=== PATIENT | male | born 1960 | race Caucasian/White ===

== ENCOUNTER → 2018-08-08 13:07 | Outpatient (CLI) | payer MEDICARE, SELFPAY ==
--- NOTE | 2018-08-08 13:08 | ECHOCS_ITS ---
Version 2 Reason For Study: S/P CABG Procedure This was a 2D Doppler, Color Flow transthoracic echocardiogram. Limited views were obtained. The study was technically difficult. Exam performed in department. Left Ventricle Normal LV size. The estimated ejection fraction is 40 %. Mild to moderate segmental systolic dysfunction (see wall motion). Stage 1 diastolic dysfunction. Anterio-Basal: Normal. Posterior- Basal: Normal. Mid-Anterior : Normal. Basal inferoseptal: Akinetic. Mid-Lateral : Normal. Lateral- Basal: Normal. Infero-Basal: Normal. The rest of the wall segments are hypokinetic. Right Ventricle Normal RV size. Normal systolic function. Atria Normal left atrium. Normal right atrium. Mitral Valve Normal mitral valve. Tricuspid Valve Normal tricuspid valve. Mild (1+) tricuspid valve insufficiency. Pulmonary artery systolic pressure is 25 mmHg. Aortic Valve Trisinus/trileaflet aortic valve. Mild focal aortic valve calcification. Pulmonic Valve Normal pulmonic valve. Great Vessels Normal aortic root. The pulmonary artery is normal size. Normal inferior vena cava. Pericardium/Pleural No pericardial effusion. Medication 22 gauge I.V. with prn adaptor inserted into left arm. Diluted definity 10ml given slow IV push to enhance endocardial definition. Dificult IV access- attmepts X 5, Left hand IV for Definity. MMode/2D Measurements & Calculations LVIDd: 5.5 cm IVSd: 1.1 cm Ao root diam: 3.5 cm LVIDs: 4.5 cm LVPWd: 1.2 cm RVDd: 4.1 cm FS: 18.3 % LAV(MOD-bp): 65.9 ml LVAd ap4: 43.8 cm2 SV(MOD-sp4): 63.6 ml LAV(MOD-bp) Indexed: 27.7 ml/m2 EDV(MOD-sp4): 177.6 ml LAV(MOD-sp2): 51.8 ml EDV(sp4-el): 193.6 ml LAV(MOD-sp4): 77.4 ml LVAs ap4: 33.2 cm2 ESV(MOD-sp4): 114.0 ml ESV(sp4-el): 120.8 ml EF(MOD-sp4): 35.8 % EF(sp4-el): 37.6 % SV(sp4-el): 72.8 ml LA A4 area: 23.4 cm2 LA dimension(2D): 4.5 cm RA A4 area: 11.7 cm2 Time Measurements MV dec time: 0.16 sec Doppler Measurements & Calculations MV E max john: 119.7 cm/sec Lat Peak E' John: 7.0 cm/sec Med Peak E' John: 5.4 cm/sec MV A max john: 99.6 cm/sec E/E' lat: 17.0 E/E' med: 22.1 MV E/A: 1.2 Ao V2 max: 136.8 cm/sec LV V1 max: 89.6 cm/sec TR max john: 229.0 cm/sec Ao max P.5 mmHg LV V1 max P.2 mmHg TR max P.5 mmHg Interpretation Summary Normal LV size. The estimated ejection fraction is 40 %. Mild to moderate segmental systolic dysfunction (see wall motion). Stage 1 diastolic dysfunction. Mild (1+) tricuspid valve insufficiency. Contrast injection was performed. Compared to prior study, there is no significant change. Ordering Physician: Sebastián Farrell Referring Physician: ROHIT CARSON Performed By: Elizabeth Gallagher, JOSIAH, RVT
== END ==
PROVIDERS: Family Provider Family Medicine; PCP Family Medicine; Referring Provider Internal Medicine Cardiovascular Disease; Visit Provider Internal Medicine Cardiovascular Disease
DX: R94.31 Abnormal electrocardiogram [ECG] [EKG] (principal)
CPT/HCPCS: 93306; Q9957; A4216; C8929

== ENCOUNTER → 2019-10-02 06:40 | Outpatient (CLI) | payer MEDICARE, SELFPAY ==
[2019-09-08 14:19] VITALS: BMI 39.0
--- NOTE | 2019-10-02 06:42 | ECHOCS_ITS ---
Reason For Study: HTN Procedure This was a 2D Doppler, Color Flow transthoracic echocardiogram. The study was technically difficult. Contrast injection was performed. Exam performed in department. Left Ventricle Normal LV size. The estimated ejection fraction is 35 %. Moderate segmental systolic dysfunction (see wall motion). Stage 2 diastolic dysfunction. Mid-Inferior: Akinetic. Infero-Basal: Akinetic. Inferior [place] : Akinetic. Mid-Posterior: Hypokinetic. Mid-Anterior : Hypokinetic. Basal inferoseptal: Hypokinetic. The rest of the wall segments are normal. Right Ventricle Normal RV size. Normal systolic function. Atria Normal left atrium. Normal right atrium. Mitral Valve Normal mitral valve. Tricuspid Valve Normal tricuspid valve. Mild to moderate (1-2+) tricuspid valve insufficiency. Pulmonary artery systolic pressure is 33 mmHg. Aortic Valve The aortic valve is not well visualized. Pulmonic Valve The pulmonic valve is not well visualized. Great Vessels Normal aortic root. Pericardium/Pleural No pericardial effusion. Medication Diluted definity 3.0ml given slow IV push to enhance endocardial definition. MMode/2D Measurements & Calculations LVIDd: 6.1 cm IVSd: 1.1 cm Ao root diam: 3.9 cm LVIDs: 5.1 cm LVPWd: 1.3 cm RVDd: 4.2 cm FS: 16.9 % LAV(MOD-bp): 71.1 ml LA A4 area: 20.3 cm2 LA dimension(2D): 4.4 cm LAV(MOD-bp) Indexed: 29.0 ml/m2 LAV(MOD-sp2): 74.1 ml LAV(MOD-sp4): 62.7 ml RA A4 area: 14.8 cm2 Time Measurements MV dec time: 0.16 sec Doppler Measurements & Calculations MV E max john: 137.1 cm/sec Lat Peak E' John: 10.4 cm/sec Med Peak E' John: 6.0 cm/sec MV A max john: 90.2 cm/sec E/E' lat: 13.2 E/E' med: 22.8 MV E/A: 1.5 Ao V2 max: 149.3 cm/sec LV V1 max: 105.0 cm/sec TR max john: 267.0 cm/sec Ao max P.9 mmHg LV V1 max P.5 mmHg TR max P.6 mmHg Interpretation Summary Normal LV size. The estimated ejection fraction is 35 %. Moderate segmental systolic dysfunction (see wall motion). Stage 2 diastolic dysfunction. Compared to the previous there is little change but mild reduction in LV function. Contrast injection was performed. Ordering Physician: Sebastián Farrell Referring Physician: ROHIT CARSON Performed By: Elizabeth Gallagher, JOSIAH, RVT
--- NOTE | 2019-10-02 10:05 | STRESSREP ---
Stress Test Report Pharmacologic myocardial perfusion stress test. 58-year-old man with a history of coronary artery bypass surgery with a left internal mammary artery to the diagonal branch, saphenous vein graft to ramus intermedius and posterior descending artery. Stress protocol: Resting EKG demonstrates normal sinus rhythm with a rate of 96 bpm previous inferior infarct is noted. Premature atrial complexes are noted. 0.4 mg of regadenoson was infused per usual protocol followed Intravenous saline flush injection continuous EKG monitoring was performed. Patient maintained sinus rhythm throughout the recording at rest there were no ST or T wave changes noted suggest abnormal flow reserve at peak infusion nonspecific ST-T wave changes were noted with no meet the criteria for ischemia. The resting blood pressure was 142/82 with a final blood pressure of the same. Myocardial perfusion protocol. 14.7 mCi of technetium 99m sestamibi was injected at rest. 0.4 mg of regadenoson was infused per usual protocol peak infusion 44.4 mCi of technetium 99m sestamibi was injected stress images were obtained stress and rest images were reconstructed and compared in the short axis vertical long horizontal long axis. Gated images also obtained per Perfusion SPECT analysis: Perfusion SPECT analysis demonstrates a large zone noted involving the inferior and inferior septal wall present on the stress and resting images suggestive of a previous extensive inferoseptal infarct. No obvious ischemia is noted. The gated ejection fraction is noted to be 36% the rest of the roblero appear to be normally perfused. Gated SPECT analysis: The gated ejection fraction is 36%. Conclusion: Myocardial perfusion stress test with previous extensive inferior and inferoseptal infarct. Ischemic cardiomyopathy.
== END ==
PROVIDERS: Family Provider Family Medicine; PCP Family Medicine; Referring Provider Internal Medicine Cardiovascular Disease; Visit Provider Internal Medicine Cardiovascular Disease
DX: Z01.810 Encounter for preprocedural cardiovascular examination (principal); I25.10 Atherosclerotic heart disease of native coronary artery without angina pectoris; Z95.1 Presence of aortocoronary bypass graft
CPT/HCPCS: 78452; 93017; 93306; A9500; Q9957; A4216; C8929; J2785

== ENCOUNTER 2022-01-05 13:09 | Outpatient (CLI) | payer MEDICARE, SELFPAY ==
--- NOTE | 2022-01-05 13:12 | ECHOCS_ITS ---
Reason For Study: s/p CABG Procedure This was a 2D Doppler, Color Flow transthoracic echocardiogram. Contrast injection was performed. Exam performed in department. Left Ventricle Normal LV size. Mild concentric left ventricular hypertrophy. The estimated ejection fraction is 45 %. Stage 2 diastolic dysfunction. There are regional wall motion abnormalities as specified. Atria The left atrium is moderately enlarged. Normal right atrium. Tricuspid Valve Normal tricuspid valve. Mild (1+) tricuspid valve insufficiency. Pulmonary artery systolic pressure is 30 mmHg. Aortic Valve Mild focal aortic valve calcification. Mild (1+) aortic valve insufficiency. Great Vessels Normal aortic root. The pulmonary artery is normal size. Normal inferior vena cava. Pericardium/Pleural No pericardial effusion. Medication Diluted definity 4ml given slow IV push to enhance endocardial definition. MMode/2D Measurements & Calculations LVIDd: 6.3 cm IVSd: 1.2 cm Ao root diam: 3.1 cm LVIDs: 5.3 cm LVPWd: 1.3 cm RVDd: 3.8 cm FS: 15.8 % LAV(MOD-bp): 75.1 ml LVAd ap4: 42.7 cm2 SV(MOD-sp4): 72.0 ml LAV(MOD-bp) Indexed: 32.8 ml/m2 LVLd ap4: 8.7 cm LAV(MOD-sp2): 75.3 ml EDV(MOD-sp4): 172.6 ml LAV(MOD-sp4): 71.8 ml EDV(sp4-el): 178.7 ml LVAs ap4: 31.1 cm2 LVLs ap4: 7.9 cm ESV(MOD-sp4): 100.6 ml ESV(sp4-el): 104.2 ml EF(MOD-sp4): 41.7 % EF(sp4-el): 41.7 % SV(sp4-el): 74.5 ml LA dimension(2D): 5.3 cm LA A4 area: 23.0 cm2 RA A4 area: 14.3 cm2 Doppler Measurements & Calculations MV E max john: 132.0 cm/sec Lat Peak E' John: 8.5 cm/sec Med Peak E' John: 4.3 cm/sec MV A max john: 57.8 cm/sec E/E' lat: 15.6 E/E' med: 30.5 MV E/A: 2.3 MV V2 max: 143.4 cm/sec Ao V2 max: 150.7 cm/sec LV V1 max: 114.7 cm/sec MV max P.2 mmHg Ao max P.1 mmHg LV V1 max P.3 mmHg MV V2 mean: 69.3 cm/sec Ao V2 mean: 111.8 cm/sec MV mean P.3 mmHg Ao mean P.5 mmHg MV V2 VTI: 46.9 cm Ao V2 VTI: 35.0 cm PA V2 max: 110.2 cm/sec PI end-d john: 151.9 cm/sec TR max john: 258.1 cm/sec TR max P.7 mmHg ECHO/Echo Complete W/ Contrast Interpretation Summary Normal LV size. Mild concentric left ventricular hypertrophy. The left atrium is moderately enlarged. The estimated ejection fraction is 45 %. Stage 2 diastolic dysfunction. Pulmonary artery systolic pressure is 30 mmHg. Contrast injection was performed. Compared to previous study, the left ventricu lar systolic function has improved.. Ordering Physician: Sebastián Farrell Referring Physician: Isreal Aguilar Performed By: Deana Peng, JOSIAH, RVT
== END 2022-01-05 23:59 | disposition home or self-care (01) ==
LOC: CVS 13:11
PROVIDERS: PCP Family Medicine; Referring Provider Internal Medicine Cardiovascular Disease; Visit Provider Internal Medicine Cardiovascular Disease
DX: I25.10 Atherosclerotic heart disease of native coronary artery without angina pectoris (principal)
CPT/HCPCS: 93306; Q9957; A4216; C8929

== ENCOUNTER → 2025-05-10 | Outpatient (CLI) | payer MEDICARE, SELFPAY ==
--- NOTE | 2025-05-10 06:00 | ECHOCS_ITS ---
Reason For Study Reason For Study: REASSESS EF Procedure This was a 2D Doppler, Color Flow transthoracic echocardiogram. The study was technically difficult. Contrast injection was performed. Exam performed in department. Left Ventricle Normal LV size. The left ventricular ejection fraction is 30 %. There is moderate to severe global hypokinesis of the left ventricle. Right Ventricle Normal RV size. Normal systolic function. Atria Normal left atrium. Normal right atrium. Mitral Valve Normal mitral valve. Tricuspid Valve Normal tricuspid valve. Aortic Valve Trisinus/trileaflet aortic valve. Moderate focal aortic valve calcification. Pulmonic Valve Normal pulmonic valve. Great Vessels Normal aortic root. Pericardium/Pleural No pericardial effusion. Medication Diluted definity 3ml given slow IV push to enhance endocardial definition. MMode/2D Measurements & Calculations LVOT diam: 2.0 cm LAV(MOD-bp): 57.7 ml LVAd ap4: 62.4 cm2 LVOT area: 3.3 cm2 LAV(MOD-bp) Indexed: 23.9 ml/m2 LVLd ap4: 9.9 cm LAV(MOD-sp2): 41.4 ml EDV(MOD-sp4): 319.0 ml LAV(MOD-sp4): 73.6 ml EDV(sp4-el): 332.8 ml LVAs ap4: 48.1 cm2 LVLs ap4: 8.3 cm ESV(MOD-sp4): 226.8 ml ESV(sp4-el): 235.6 ml EF(MOD-sp4): 28.9 % EF(sp4-el): 29.2 % SV(MOD-sp4): 92.2 ml SV(sp4-el): 97.2 ml LA A4 area: 22.8 cm2 SI(MOD-sp4): 38.2 ml/m2 LA dimension(2D): 5.1 cm RA A4 area: 15.0 cm2 Time Measurements MV dec time: 0.14 sec Doppler Measurements & Calculations MV E max john: 109.4 cm/sec Lat Peak E' John: 11.1 cm/sec Med Peak E' John: 5.6 cm/sec MV A max john: 69.7 cm/sec E/E' lat: 9.9 E/E' med: 19.6 MV E/A: 1.6 MV V2 max: 128.8 cm/sec MV dec slope: 782.1 cm/sec2 Ao V2 max: 142.5 cm/sec MV max P.6 mmHg Ao max P.1 mmHg MV V2 mean: 76.7 cm/sec Ao V2 mean: 100.9 cm/sec MV mean P.7 mmHg Ao mean P.7 mmHg MV V2 VTI: 39.1 cm Ao V2 VTI: 34.0 cm MVA(VTI): 2.1 cm2 AV (velocity ratio): 0.74 DIANA(I,D): 2.4 cm2 DIANA(V,D): 2.7 cm2 LV V1 max: 116.7 cm/sec SV(LVOT): 82.9 ml PA V2 max: 108.7 cm/sec LV V1 max P.5 mmHg PA V2 mean: 72.6 cm/sec LV V1 mean P.9 mmHg LV V1 mean: 79.0 cm/sec LV V1 VTI: 25.3 cm ECHO/Echo Complete W/ Contrast Interpretation Summary Normal LV size. The left ventricular ejection fraction is 30 %. There is moderate to severe global hypokinesis of the left ventricle. Contrast injection was performed. Compared to previous study, the left ventricu lar systolic function has worsened.. Ordering Physician: Dean Peng Referring Physician: Dean Peng Performed By: Hannah Renteria RCS
--- OUTSIDE RECORDS SUMMARY | 2025-05-10 06:01 | XMS RPT_ITS | CCD ---
Author Organization [facility] Care Team Providers Care [place] Supervisor Name Role Phone Angle Kirkland Unavailable GURPREET Atkins, Mena Elaine Unavailable UnavailGisele CORCORANP-C, Felicia Huerta Unavailable Unavailable PARETE, YAMILKA Unavailable Unavailable PARETE YAMILKA Unavailable Unavailable NO REFERRING Unavailable Unavailable Luca Paul Unavailable Unavailable Luca Paul Unavailable Unavailable Tavallaee, Gilberto Unavailable Unavailable Bobbye, Gilberto Unavailable Unavailable Rohit Aguilar Unavailable Unavailable Rohit Aguilar Primary Care Provider Angle Kirkland Unavailable Rohit Aguilar Unavailable Rohit Aguilar Primary Care Provider Rohit Aguilar Unavailable Unavailable Shannan, Prity Unavailable Abby Alena Sabry Unavailable Rohit Aguilar Unavailable Dean Izquierdo II Unavailable Unavailable ABBY, ALENA SABRY Admitting Unavailable ABBY ALENA SABRY Referring Unavailable ROHIT AGUILAR Primary Care Unavailable Rohit Aguilar Primary Care Provider Abby Alena Sabry Unavailable [phone] [facility] UROLOGY NURSE, [id number] Unavailable Unavailable Shannan, Prity Unavailable Rohit Aguilar Unavailable Rohit Aguilar MD Primary Care Provider Shannan MD, Prity Unavailable [place] DPM, Alena Sabry Unavailable [phone] Shannan ROSA, Prity Unavailable Abby DPM, Alena Sabry Unavailable [phone] Dr. Rohit Aguilar Primary Care Provider Dr. Rohit Aguilar Referring Provider Dr. Sebastián Dailey Attending Provider [phone] Rohit Aguilar MD Primary Care Provider Shannan ROSA, Prity Unavailable Abby DPM, Alena Sabry Unavailable Rohit Aguilar MD Primary Care Provider [phone] Shannan ROSA, Prity Unavailable Abby DPM, Alena Sabry Unavailable [phone] Manoj, Dr. Michelle Prado Admitting Unavailable Thomae, Dr. Michelle Prado Attending Unavailable Tommayela, Dr. Rohit Moran Primary Care Unavaila ble Jeff, Dr. Rohit Moran Referring Unavaila ble Thompraveen, Dr. Michelle Prado Admitting Unavailable Thompraveen, Dr. Michelle Prado Attending Unavailable Tommayela, Dr. Rohit Moran Primary Care Unavaila ble Jeff, Dr. Rohit Moran Referring Unavaila ble Jeff, Dr. Rohit Pichardo Primary Care Unavailabl e Izquierdo II, Dr. Dean Fierro Referring Unavai lable Izquierdo II, Dr. Dean Fierro Attending UnavaRohit Orellana MD Primary Care Provider Jace Reeder DO Primary Care Provider [phone] Jace Reeder DO Primary Care Provider JACE REEDER Primary Care Unavailable DEAN HURTADO Attending Unavailable JACE REEDER Primary Care Unavailable FELICIA MONTGOMERY Attending Unavailable Jace Reeder DO Unavailable Henri VÁZQUEZ, Sera Unavailable Unavailable [facility], [facility] Primary Care Unavailable MARIO CASTRO Referring Unavailable OBERHAUSER, [facility] Primary Care Unavailable ABBY, ALENA CLARKRY Attending Unavailable ABBY, ALENA SABRY Admitting Unavailable [facility]HAUSER, [facility] Primary Care Unavailable MICHELE POMPA Admitting Unavailab MARCI Taylor Consulting Unavailable MARIBETH ESPINAL Attending Unavailable OBERHAUSER, [facility] Primary Care Unavailable ABBY, ALENA SABRY Attending Unavailable ABBY, ALENA SABRY Admitting Unavailable OBERHAUSER, [facility] Primary Care Unavailable ABBY, ALENA SABRY Attending Unavailable OBERHAUSER, [facility] Primary Care Unavailable ABBY, ALENA SABRY Admitting Unavailable ABBY, ALENA SABRY Attending Unavailable ABBY, ALENA SABRY Attending Unavailable ABBY, ALENA SABRY Admitting Unavailable OBERHAUS, [facility] Primary Care Unavailable OBERHAUSER, [facility] Primary Care Unavailable ABBY, ALENA SABRY Admitting Unavailable ABBY, ALENA SABRY Referring Unavailable ABBY, ALENA SABRY Attending Unavailable ABBY, ALENA SABRY Attending Unavailable ABBY, ALENA SABRY Admitting Unavailable OBERHAUSER, [facility] Primary Care Unavailable ABBY, ALENA SABRY Attending Unavailable ABBY, ALENA SABRY Admitting Unavailable OBERHAUSER, [facility] Primary Care Unavailable OBERHAUSER, [facility] Primary Care Unavailable ABBY, ALENA SABRY Attending Unavailable ABBY, ALENA SABRY Admitting Unavailable DOMKA, TORIE Attending Unavailable DOMKA, TORIE Admitting Unavailable OBERHAUSER, [facility] Primary Care Unavailable OBERHAUSER, [facility] Primary Care Unavailable ABBY, ALENA SABRY Attending Unavailable ABBY, ALENA SABRY Admitting Unavailable OBERHAUSER, [facility] Primary Care Unavailable ABBY, ALENA SABRY Attending Unavailable ABBY, ALENA SABRY Admitting Unavailable ABBY, ALENA SABRY Admitting Unavailable DOMKA, TORIE Referring Unavailable OBERHAUS, [facility] Primary Care Unavailable ABBY, ALENA SABRY Attending Unavailable OBERHAUSER, [facility] Primary Care Unavailable ABBY, ALENA SABRY Referring Unavailable ABBY, ALENA SABRY Attending Unavailable ABBY, ALENA SABRY Admitting Unavailable OBERHAUSER, JACE Primary Care Unavailable ABBY, ALENA EDUARDORY Attending Unavailable ABBY, ALENA SABRY Admitting Unavailable OBERHAUSER, JACE Primary Care Unavailable ABBY, ALENA EDUARDORY Attending Unavailable OBERHAUSER, JACE L Primary Care Unavailable OBERHAUSER, JACE L Primary Care Unavailable Oberhauser DO, Jace L Unavailable [phone] Reyes CARRASQUILLO, Bhakti Dietz Primary Care Provider Bhakti Chambers PA-C Primary Care Provid er Oberhauser DO, Jace L Unavailable BHAKTI CHAMBERS Referring Unavailable BHAKTI CHAMBERS Primary Care Unavailable Oberhauser Dr. Jace DOBBINS Referring Provider Danish MEDICAL SURGICAL TECH-CDean Attending Provider Bhakti Wagner Primary Care Provider [phone] BHAKTI CHAMBERS Attending Unavailable BHAKTI CHAMBERS B Primary Care Unavailable OBERHAUSER, JACE L Attending Unavailable OBERHAUSER, JACE L Primary Care Unavailable OBERHAUSER, JACE L Attending Unavailable OBERHAUSER, JACE L Primary Care Unavailable OBERHAUSER, JACE L Attending Unavailable OBERHAUSER, JACE L Referring Unavailable OBERHAUSER, JACE L Primary Care Unavailable REYES, BHAKTI B Attending Unavailable REYES, BHAKTI B Primary Care Unavailable BHAKTI CHAMBERS B Attending Unavailable BHAKTI CHAMBERS B Primary Care Unavailable Bhakti Wagner Primary Care Unavailabl e Roof MEDICAL SURGICAL TECH, Dean H Referring Unavailable Roof MEDICAL SURGICAL TECH, Dean H Attending Unavailable Roof MEDICAL SURGICAL TECH, Dean H Attending Unavailable Oberhauser, Jace Referring Unavailable Bhakti Wagner Primary Care Unavailabl e ABBY, ALENA EDUARDORY Attending Unavailable OBERHAUSER, JACE Primary Care Unavailable ABBY, ALENA EDUARDORY Attending Unavailable OBERHAUSER, JACE Primary Care Unavailable ABBY, ALENA EDUARDORY Attending Unavailable BHAKTI CHAMBERS SHAVON Primary Care Unavaila ble ABBY, ALENA EDUARDORY [facility]ending [facility] ABBY, ALENA SABRY Referring Unavailable ABBY, ALENA SABRY Admitting Unavailable [facility] Primary Care Unavailable [facility] Unavaila ble ABBY, ALENA SABRY Attending Unavailable [facility] Unavaila ble ABBY, ALENA SABRY Attending Unavailable ABBY, ALENA SABRY Attending Unavailable [facility] Unavaila ble BRENTONKA, TORIE Attending Unavailable ROHIT AGUILAR [facility] Care [facility] ABBY, ALENA SABRY Attending [facility]available [facility] Unavailable ABBY, ALENA SABRY Attending Unavailable [facility] Care Unavailable ABBY, ALENA SABRY Attending Unavailable [facility] Unavaila ble ABBY, ALENA SABRY Attending Unavailable ABBY, ALENA SABRY Attending Unavailable [facility] Unavaila ble ABBY, ALENA SABRY Attending Unavailable [facility] Unavaila ble [facility] Care Unavaila ble ABBY, ALENA SABRY Attending Unavailable ABBY, ALENA SABRY Attending Unavailable [facility] Unavaila ble ABBY, ALENA SABRY Attending Unavailable [facility] Unavailable ABBY, ALENA SABRY Referring Unavailable ABBY, ALENA SABRY Admitting Unavailable [facility] Unavailable ABBY, ALENA SABRY Attending Unavailable [facility] Care Unavailable [facility] Unavaila ble GIANNI JR., CRUZITO Referring Unavailable GIANNI JR., CRUZITO Admitting Unavailable ABBY, ALENA SABRY Attending Unavailable [facility] Unavaila ble ABBY, ALENA SABRY Attending Unavailable [facility] Care Unavailable [facility] Unavaila ble ABBY, ALENA SABRY Attending Unavailable [facility] Unavaila ble ABBY, ALENA SABRY Attending Unavailable ABBY, ALENA SABRY Attending Unavailable [facility] UnavailALENA Goldstein Attending Unavailable [facility] UnavailALENA Goldstein Attending Unavailable [facility] Unavaila ALENA Velazquez Attending Unavailable [facility] Unavaila ble Medications Current Medications Medication Drug Class(es) Dates Sig (Normalized) Sig (Original) acetaminophen 325 mg / oxyCODONE hydrochloride 5 mg oral tablet (3 sources) Opioid Agonist Start: 05-03-2020 End: 05-06-2020 take 1 tablet by mouth every six hours as needed for diabetes mellitus and diabetes mellitus oxyCODONE-acetamin ophen (PERCOCET) 5-325 mg per tablet Indications: 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) Take 1 (one) tablet by mouth every 6 (six) hours as needed . 12 tablet 0 05/03/2020 05/06/2020 Active Start: 05-02-2020 End: 05-03-2020 take 1 tablet by mouth every six hours as needed oxyCODONE-acetaminophen (PERCOCET) 5-325 mg per tablet 1 tablet Start: 11-21-2019 End: 11-24-2019 take 1 tablet by mouth every six hours as needed oxyCODONE-acetaminophen (PERCOCET) 5-325 mg per tablet 1 tablet amoxicillin 875 mg / clavulanate 125 mg oral tablet (2 sources) Penicillin-class Antibacterial Start: 06-07-2024 End: 06-17-2024 take 1 tablet by mouth twice daily amoxicillin-clavulanate (AUGMENTIN) 875-125 mg per tablet Take 1 (one) tablet by mouth 2 (two) times a day for 10 days . 20 tablet 06/07/2024 06/17/2024 Active End: 01-25-2019 take 1 tablet by mouth every twelve hours amoxicillin-clavulanate (AUGMENTIN) 500-125 mg per tablet Take 1 tablet by mouth every 12 (twelve) hours . 0 01/25/2019 Discontinued aspirin 81 mg delayed release oral tablet (20 sources) Nonsteroidal Anti-inflammatory Drug Start: 06-26-2022 Aspirin (Adult Lo w Dose Aspirin) 81 mg tablet,delayed release (DR/EC) Active 162 mg PO daily June 26, 2022 10:55am Start: 11-30-2019 End: 12-19-2019 take 162 mg by mouth once daily 162 mg, Oral, Daily, F irst dose (after last modification) on Wed12/07/19 at 0900 DO NOT CRUSH OR CHEW. Start: 11-21-2019 End: 11-24-2019 take 162 mg by mouth once daily 162 mg, Oral, Daily, F irst dose on Wed11/21/19 at 0900 DO NOT CRUSH OR CHEW. Start: 12-09-2017 End: 06-26-2022 Aspirin (Adult Low Dose Aspi rin) 81 mg tablet,delayed release (DR/EC) Active 0 PO daily December 09, 2017 1:16pm 81mg, 2 tablets PO QDAY Start: 10-30-2016 End: 12-25-2019 take 2 tablets by mouth once daily aspirin 81 MG EC tablet Take 2 (two) tablets (162 mg total) by mouth daily Start: 11/25/19. 60 tablet 0 11/25/2019 12/25/2019 Start: 10-30-2016 take 1 tablet by [place] once daily ASPIRIN 325 MG TABS One tablet by mouth daily ASPIRIN [id number] Nelda Cardona RN bumetanide 0.5 mg oral tablet (20 sources) Loop Diuretic Start: 06-21-2024 End: 07-24-2025 take 1 tablet by mouth once daily bumetanide (Bumex) 0.5 mg tablet Indications: Leg swelling Take 1 tablet (0.5 mg) by mouth once daily. 90 tablet 3 08/08/2024 Active calcium carbonate 1500 mg oral tablet (20 sources) Start: 06-26-2022 Calcium Carbon ate (Calcium 600) 600 mg calcium (1,500 mg) tablet Active 1200 mg PO EVERY EVENING June 26, 2022 12:00am Start: 11-30-2019 End: 12-19-2019 take 1000 mg by mouth once daily at mealtime 1,000 mg, Oral, Daily, First dose (after last modification) on Wed12/07/19 at 0900 Give with Food Start: 11-21-2019 End: 11-24-2019 take 1000 mg by mouth once daily at mealtime 1,000 mg, Oral, Daily, First dose on Wed11/21/19 at 0900 Give with Food calcium carbonat e 400 mg Chew Chew and Swallow 1 (one) tablet (1,000 mg total) daily . Active calcium carbonat e 400 mg Chew Chew and Swallow 1,000 mg daily . 0 Active Calcium Carbonate / vitamin D3 (9 sources) take 1 tablet by mouth twice daily calcium carbonate/vitamin D3 (CALCIUM 600 + D,3, ORAL) Take 1 tablet by mouth 2 times a day. Active carvedilol 25 mg oral tablet (20 sources) alpha-Adrenergic Lexi, beta-Adrenergic Lexi Start: Carvedilol 25 mg tablet Active 12.5 mg PO TWICE A DAY March 19, 2025 8:52am Start: 04-21-2022 Carvedilol 25 MG Oral Tablet Quantity: 180 Refills: 0 Ordered: 21-Apr-2022 DO Start : 21-Apr-2022 Complete Start: 05-06-2021 End: 03-19-2025 take 1 tablet by mouth twice daily carvedilol (Coreg) 25 mg tablet Indications: Primary hypertension Take 1 tablet (25 mg) by mouth 2 times daily (morning and late afternoon). 180 tablet 3 07/24/2024 Active Start: 06-28-2020 End: 05-06-2021 take 2 tablets by mouth twice daily Carvedilol 6.25 mg tablet Discontinued 12.5 mg PO TWICE A DAY June 28, 2020 1:10pm May 06, 2021 3:02pm Start: 06-28-2020 End: 05-06-2021 take 12.5 mg by mouth twice daily Carvedilol Discontinued 12.5 MG PO TWICE A DAY June 28, 2020 1:10pm May 06, 2021 3:02pm Start: 12-23-2019 Carvedilol 12. 5 MG Oral Tablet Quantity: 180 Refills: 0 Ordered: 23-Dec-2019 DO Start : 23-Dec-2019 Active Start: 11-30-2019 End: 05-03-2020 take 1 tablet by mouth twice daily carvediloL (COREG) 12.5 MG tablet Take 1 (one) tablet (12.5 mg total) by mouth 2 (two) times a day . 60 tablet 12/19/2019 Active Start: 11-20-2019 End: 11-24-2019 take 1 tablet by mouth every twelve hours 12.5 mg, Oral, Every 12 hours, First dose on 11/20/19 at 2330 Give carvedilol with food to reduce risk of hypotension / dizziness. Separate from admin of ZECHARIAH inhibitors by two hours. Start: 12-09-2017 End: 06-28-2020 take 6.25 mg by mouth twice daily Carvedilol Discontinued 6.25 MG PO TWICE A DAY December 09, 2017 1:18pm June 28, 2020 1:11pm Start: 02-04-2017 End: 12-24-2019 take 2 tablets by mouth every twelve hours carvediloL (COREG) 6.25 MG tablet Take 2 (two) tablets (12.5 mg total) by mouth every 12 (twelve) hours . 120 tablet 0 11/24/2019 12/19/2019 Discontinued (Stop Taking at Discharge) Start: 02-04-2017 take 1 tablet by [place] every twelve hours carvedilol (COREG) 6.25 MG tablet 1 Unspecified every 12 (twelve) hours . 0 02/04/2017 Active Start: 02-04-2017 take 1 tablet by [place] twice daily COREG 6.25 MG TABS One tablet by mouth twice daily CARVEDILOL [id number] Felicia Valencia PAPER TWISTER-C cephalexin 500 mg oral capsule (8 sources) Cephalosporin Antibacterial Start: 12-04-2024 End: 12-14-2024 take 1 capsule by mouth twice daily cephALEXin (KEFLEX) 500 MG capsule Take 1 (one) capsule (500 mg total) by mouth 2 (two) times a day for 10 days . 20 capsule 12/04/2024 12/14/2024 Active Start: 11-28-2024 End: 01-11-2025 take 1 capsule by mouth every twelve hours cephalexin (Keflex) 500 mg capsule Take 1 capsule (500 mg) by mouth every 12 hours. 11/28/2024 01/11/2025 Discontinued (Therapy completed) Start: 11-20-2024 End: 11-30-2024 take 1 capsule by mouth twice daily cephALEXin (KEFLEX) 500 MG capsule Take 1 (one) capsule (500 mg total) by mouth 2 (two) times a day for 10 days . 20 capsule 11/20/2024 11/30/2024 Start: 08-20-2021 End: 08-30-2021 take 1 capsule by mouth twice daily Cephalexin 500 MG Oral Capsule TAKE 1 CAPSULE BY MOUTH TWICE DAILY FOR 10 DAYS Quantity: 20 Refills: 0 Ordered: 20-Aug-2021 DO Start : 20-Aug-2021 Complete chlorthalidone 25 mg oral tablet (20 sources) Thiazide-like Diuretic Start: 01-19-2024 End: 07-24-2024 take 0.5 tablet by mouth once daily chlorthalidone (Hygroton) 25 mg tablet Indications: Primary hypertension Take 0.5 tablets (12.5 mg) by mouth once daily. 45 tablet 3 07/24/2024 Active Start: 08-25-2023 End: 01-19-2024 chlorthalidone (Hygroton) 25 mg tablet Take 12.5 tablets (312.5 mg) by mouth once daily. 08/25/2023 01/19/2024 Discontinued (Reorder) Start: 04-14-2022 Chlorthalidone 25 MG Oral Tablet Quantity: 45 Refills: 0 Ordered: 14-Apr-2022 DO Start : 14-Apr-2022 Complete Start: 03-31-2021 take 12.5 mg by mout h once daily Chlorthalidone Active 12.5 MG PO DAILY March 31, 2021 8:34am Start: 03-31-2021 Chlorthalidone 25 mg tablet Active 12.5 mg PO DAILY March 31, 2021 12:00am cholecalciferol 0.025 mg oral tablet (20 sources) Vitamin D Start: 06-26-2022 take 1 tablet by mouth once daily Cholecalciferol (Vitamin D3) 25 mcg (1,000 unit) tablet Active 25 ug PO DAILY June 26, 2022 12:00am take 1 tablet by mouth once jairo y cholecalciferol (Vitamin D3) 50 MCG (2000 UT) tablet Take 1 tablet (50 mcg) by mouth once daily. Active take 2 tablets by mouth once vaishnavi ly cholecalciferol, vitamin D3, 1,000 unit tablet Take 2 (two) tablets (2,000 Units total) by mouth daily . Active Docosahexaenoate (20 sources) take 1 dose by mouth once daily DOCOSAHEXAENOIC ACID ORAL Take 1 Dose by mouth daily . Active DOCOSAHEXAENOIC ACID ORAL Take by mouth . Active doxycycline hyclate 100 mg oral tablet (20 sources) Tetracycline-class Drug Start: 05-28-2024 End: 01-11-2025 take 1 tablet by mouth every twelve hours doxycycline (Vibra-Tabs) 100 mg tablet Take 1 tablet (100 mg) by mouth every 12 hours. 05/28/2024 01/11/2025 Discontinued (Therapy completed) Start: 01-13-2022 Doxycycline Mo nohydrate 100 MG Oral Capsule Quantity: 28 Refills: 0 Ordered: 15-Jan-2022 DO Start : 13-Jan-2022 Complete Start: 10-18-2020 End: 03-04-2022 take 1 capsule by mouth once daily doxycycline hyclate (VIBRAMYCIN) 100 MG capsule Take 1 (one) capsule (100 mg total) by mouth daily . 90 capsule 1 10/18/2020 04/16/2021 Active Start: 06-28-2020 End: 03-31-2021 take 100 mg by mouth once daily Doxycycline Hyclate Di scontinued 100 MG PO DAILY June 28, 2020 1:52pm March 31, 2021 8:34am Start: 05-03-2020 End: 06-23-2020 take 1 capsule by mouth twice daily at mealtime doxycycline hyclate (VIBRAMYCIN) 100 MG capsule Take 1 (one) capsule (100 mg total) by mouth 2 (two) times a day with meals Stay out of the sun. . 60 capsule 2 05/24/2020 06/23/2020 Active Start: 01-12-2020 End: 03-12-2020 take 1 capsule by mouth twice daily doxycycline hyclate (VIBRAMYCIN) 100 MG capsule Take 1 (one) capsule (100 mg total) by mouth 2 (two) times a day Stay out of the sun. . 60 capsule 1 01/12/2020 03/12/2020 Active Start: 12-28-2019 End: 01-04-2020 take 1 capsule by mouth twice daily at mealtime doxycycline hyclate (VIBRAMYCIN) 100 MG capsule Take 1 (one) capsule (100 mg total) by mouth 2 (two) times a day with meals Stay out of the sun. for 7 days . 14 capsule 0 12/28/2019 01/04/2020 Active empagliflozin 25 mg oral tablet (20 sources) Sodium-Glucose Cotransporter 2 Inhibitor Start: 11-07-2024 End: 12-12-2025 take 1 tablet by mouth once daily empagliflozin (Jardiance) 25 mg Indications: DM (diabetes mellitus), type 2 with neurological complications Take 1 tablet (25 mg) by mouth once daily. 100 tablet 3 11/07/2024 12/12/2025 Active Start: 12-09-2017 End: 12-14-2017 take 1 tablet by mouth once daily Empagliflozin (Jardiance) 10 mg tablet Discontinued 10 MG PO daily December 09, 2017 1:16pm December 14, 2017 1:25pm Start: 06-15-2017 [facility] JARDIANCE 10 MG TABS One tablet by mouth daily EMPAGLIFLOZIN [id number] Sebastián Dailey MD 0.4 ml enoxaparin sodium 100 mg/ml prefilled syringe (8 sources) Low Molecular Weight Heparin Start: 05-04-2020 End: 05-25-2020 inject 0.4 mL by subcutaneous injection once daily enoxaparin (LOVENOX) 40 mg/0.4 mL Syrg Inject 0.4 mL (40 mg total) under the skin daily for 21 days Start: 05/04/20. 8.4 mL 0 05/04/2020 05/25/2020 Active Start: 05-02-2020 End: 05-03-2020 inject 40 mg by subcutaneous injection once daily 40 mg, Subcutaneous, Daily, First dose on Meghan 05/02/20 at 0800, For 21 days Administer in abdomen unless otherwise directed by prescriber. Notify physician if patient refuses. Indication: VTE Prophylaxis ergocalciferol 1.25 mg oral capsule (8 sources) Provitamin D2 Compound Start: 03-18-2025 Ergocalciferol ([place] min D2) 1,250 mcg (50,000 unit) capsule Active PO March 19, 2025 12:00am Start: 03-18-2025 ergocalciferol (ERGOCALCIFEROL) 1,250 mcg (50,000 unit) capsule Take 1 (one) capsule (50,000 Units total) by mouth . 03/18/2025 Active Start: 03-18-2025 take 1 capsule by mo [facility] every week ergocalciferol (Vitamin D-2) 1250 mcg (50,000 units) capsule Indications: Vitamin D deficiency Take 1 capsule (50,000 Units) by mouth 1 (one) time per week. 13 capsule 3 03/18/2025 Active fenofibrate 160 mg oral tablet (20 sources) Peroxisome Proliferator Receptor alpha Agonist Start: 03-31-2021 End: 12-25-2021 Fenofibrate Micronized 200 mg capsule Discontinued 160 mg PO DAILY March 31, 2021 8:35am December 25, 2021 9:21am Start: 03-31-2021 End: 12-25-2021 take 160 mg by mouth once daily Fenofibrate Micronized Discontinued 160 MG PO DAILY March 31, 2021 8:35am December 25, 2021 9:21am Start: 11-01-2019 Fenofibrate 16 0 MG Oral Tablet Quantity: 90 Refills: 0 Ordered: 01-Nov-2019 DO Start : 01-Nov-2019 Active Start: 01-26-2015 End: 07-24-2024 take 1 tablet by mouth once daily fenofibrate (Triglide) 160 mg tablet Indications: Mixed hyperlipidemia Take 1 tablet (160 mg) by mouth once daily. 90 tablet 3 07/24/2024 Active Start: 01-26-2015 End: 03-31-2021 take 1 capsule by mouth once daily Fenofibrate Micronized 200 MG capsule Discontinued 200 mg PO DAILY October 01, 2016 1:00am March 31, 2021 8:35am ferrous sulfate 325 mg oral tablet (20 sources) Start: 12-25-2021 take 325 mg by mouth once daily Ferrous Sulfate Active 325 MG PO DAILY December 25, 2021 9:20am take 1 tablet by mouth three serge es weekly ferrous sulfate, 325 mg ferrous sulfate, tablet Take 1 tablet by mouth 3 times a week. Active finasteride 5 mg oral tablet (20 sources) 5-alpha Reductase Inhibitor Start: 06-14-2024 End: 07-24-2024 take 1 tablet by mouth once daily finasteride (Proscar) 5 mg tablet Indications: Benign prostatic hyperplasia with urinary frequency Take 1 tablet (5 mg) by mouth once daily. 90 tablet 3 07/24/2024 Active Start: 01-27-2024 take 1 tablet by [place] once daily finasteride (Proscar) 5 mg tablet Indications: Benign prostatic hyperplasia with urinary frequency Take 1 tablet (5 mg) by mouth once daily. 90 tablet 3 01/27/2024 Active Start: 04-17-2024 take 0.5 tablet by m outh once daily finasteride (Proscar) 5 mg tablet Indications: Benign prostatic hyperplasia with urinary frequency Take 0.5 tablets (2.5 mg) by mouth once daily. 45 tablet 3 01/19/2024 Active Start: 03-31-2023 Finasteride 5 mg tablet Active 2.5 mg PO MOWEFR March 31, 2023 3:40pm Start: 05-01-2020 End: 05-03-2020 take 1 dose by mouth once daily 2.5 mg, Oral, 3 times weekly (Once per day on Wed), First dose on Wed05/01/20 at 2315 Hazardous Medication. Use safe handling precautions. Start: 11-20-2019 End: 11-24-2019 take 1 dose by mouth once daily 2.5 mg, Oral, 3 times weekly (Once per day on Wed), First dose on Wed11/20/19 at 2345 Hazardous Medication. Use safe handling precautions. Start: 11-17-2019 Finasteride 5 MG Oral Tablet Quantity: 90 Refills: 0 Ordered: 17-Nov-2019 DO Start : 17-Nov-2019 Active Start: 09-17-2016 End: 03-31-2023 Finasteride 5 mg tablet Disc ontinued 5 mg PO June 26, 2022 10:56am March 31, 2023 3:42pm Start: 04-16-2015 End: 01-19-2024 take 0.5 tablet by mouth at bedtime finasteride (PROSCAR) 5 mg tablet Take 0.5 (one-half) tablet (2.5 mg total) by mouth Wednesday, Wednesday, Wednesday at bedtime . 04/16/2015 Active Start: 04-16-2015 take 2.5 mg by mouth at bedtim e finasteride (PROSCAR) 5 mg tablet Take 2.5 mg by mouth Wednesday, Wednesday, Wednesday at bedtime . 0 04/16/2015 Active FreeStyle Justin 3 [place] misc (4 sources) Start: 01-11-2025 [employer] 3 [place] misc Indications: DM (diabetes mellitus), type 2 with neurological complications Use as instructed 1 each 01/11/2025 Active FreeStyle Justin 3 Sensor device (4 sources) Start: 01-11-2025 FreeStyle Libr e 3 Sensor device Indications: DM (diabetes mellitus), type 2 with neurological complications Change every 14 days 6 each 3 01/11/2025 Active furosemide 20 mg oral tablet (20 sources) Loop Diuretic Start: 07-31-2024 End: 01-11-2025 take 1 tablet by mouth once daily furosemide (Lasix) 20 mg tablet Indications: Primary hypertension Take 1 tablet (20 mg) by mouth once daily. 90 tablet 07/31/2024 01/11/2025 Discontinued (Med List Cleanup) Start: 06-15-2024 End: 06-21-2024 take 1 tablet by mouth once daily furosemide (Lasix) 20 mg tablet Indications: Leg edema Take 1 tablet (20 mg) by mouth once daily. 30 tablet 1 06/15/2024 06/21/2024 Discontinued (Therapy completed) Start: 06-09-2024 take 1 tablet by tai th once daily furosemide (LASIX) 40 MG tablet Take 1 (one) tablet (40 mg total) by mouth daily for 5 days . 5 tablet 06/09/2024 Active Start: 01-05-2019 End: 06-28-2020 take 1 tablet by mouth once daily as needed for edema Furosemide (Lasix) 40 mg tablet Discontinued 40 MG PO DAILY January 05, 2019 1:59pm June 28, 2020 1:11pm Take one pill for three days and as needed for edema Start: 11-03-2016 End: 06-15-2017 take 1 tablet by mouth once daily FUROSEMIDE 20 MG TABS One tablet by mouth daily until it runs out FUROSEMIDE [id number] Sebastián Dailey MD Start: 11-03-2016 take 1 tablet by tai th once daily FUROSEMIDE 40 MG TABS One tablet by mouth daily till runs out. FUROSEMIDE [id number] Sebastián Dailey MD gabapentin 300 mg oral capsule (20 sources) Anti-epileptic Agent Start: 09-12-2019 Gabapenti n 300 MG Oral Capsule Quantity: 90 Refills: 0 Ordered: 12-Sep-2019 DO Start : 12-Sep-2019 Active Start: 09-12-2019 End: 12-19-2019 Gabapentin 300 MG Oral Capsu le Quantity: 90 Refills: 0 DO Start : 12-Sep-2019 Active Start: 06-15-2017 End: 07-24-2024 take 1 capsule by mouth once daily at bedtime gabapentin (Neurontin) 300 mg capsule Indications: Diabetic polyneuropathy associated with type 2 diabetes mellitus Take 1 capsule (300 mg) by mouth once daily at bedtime. 90 capsule 3 07/24/2024 Active 3 ml insulin degludec 100 unt/ml / liraglutide 3.6 mg/ml pen injector (2 sources) Insulin Analog, GLP-1 Receptor Agonist Start: 01-05-2019 Insulin Degludec-Lir aglutide (Xultophy 100/3.6) 100 unit-3.6 mg /mL (3 mL) insulin pen Active 0.16 ML SC DAILY January 05, 2019 1:43pm Start: 01-05-2019 End: 06-26-2022 Insulin Degludec-Liraglutide (Xultophy 100/3.6) 100 unit-3.6 mg /mL (3 mL) insulin pen Discontinued 0.16 mL SC DAILY January 05, 2019 12:00am June 26, 2022 10:57am insulin isophane, human 70 unt/ml / insulin, regular, human 30 unt/ml injectable suspension (20 sources) Insulin Start: 03-19-2025 inject 40 [IU] by subcutaneous injection once daily in the morning, then inject 40 [IU] by subcutaneous injection once daily in the evening Insulin Nph And Regular Human (Novolin 70/30 U-100 Insulin) 100 unit/mL (70-30) suspension Active 0 SC .COMPLEX March 19, 2025 8:55am 40 units QAM, 40 units QPM subcutaneously; Start: 06-26-2022 End: 03-19-2025 inject 46 [IU] by subcutaneous injection once daily in the morning, then inject 30 [IU] by subcutaneous injection once daily in the evening Insulin Nph And Regular Human (Novolin 70/30 U-100 Insulin) 100 unit/mL (70-30) suspension Discontinued 0 SC .COMPLEX June 26, 2022 12:00am March 19, 2025 8:57am 46 units QAM, 30 units QPM subcutaneously; Start: 11-16-2019 inject 46 [IU] by quintana bcutaneous injection in the morning, then inject 30 [IU] by subcutaneous injection at bedtime insulin NPH and regular human (NovoLIN 70/30 U-100 Insulin) 100 unit/mL (70-30) injection Inject under the skin. INJECT 46 UNITS IN THE MORNING AND 30 UNITS AT BEDTIME 11/16/2019 Active Start: 11-16-2019 End: 06-23-2024 insulin NPH-insulin regular 70/30 (NovoLIN 70/30 U-100 Insulin) 100 unit/mL (70-30) injection Inject under the skin . 11/16/2019 06/23/2024 Discontinued levoFLOXacin 500 mg oral tablet (2 sources) Quinolone Antimicrobial Start: 06-30-2024 End: 07-15-2024 take 1 tablet by mouth once daily levoFLOXacin (Levaquin) 500 mg tablet Indications: Other chronic osteomyelitis of foot, unspecified laterality (Multi) Take 1 tablet (500 mg) by mouth once daily for 5 days. 5 tablet 07/10/2024 07/15/2024 Active lisinopril 40 mg oral tablet (20 sources) Angiotensin Converting Enzyme Inhibitor Start: 03-19-2025 Lisinopril 40 mg tablet Active 20 mg PO daily March 19, 2025 8:57am Start: 08-11-2019 End: 01-11-2025 take 1 tablet by mouth once daily lisinopril 20 mg tablet Indications: Primary hypertension Take 1 tablet (20 mg) by mouth once daily. 90 tablet 3 07/24/2024 Active Start: 08-11-2019 Lisinopril 20 MG Oral Tablet Quantity: 180 Refills: 0 Ordered: 11-Aug-2019 DO Start : 11-Aug-2019 Active Start: 01-05-2019 End: 03-19-2025 Lisinopril 40 mg tablet Disc ontinued 20 mg PO TWICE A DAY January 05, 2019 1:42pm March 19, 2025 8:57am Start: 01-05-2019 take 20 mg by mouth twice jairo y Lisinopril Active 20 MG PO TWICE A DAY January 05, 2019 1:42pm Start: 12-30-2018 End: 05-03-2020 Lisinopril 20 MG Oral Tablet Quantity: 180 Refills: 0 Start : 11-Aug-2019 Active Start: 07-07-2018 End: 01-05-2019 take 10 mg by mouth once daily Lisinopril 40 mg tablet Discontinued 10 mg PO DAILY July 07, 2018 1:14pm January 05, 2019 1:42pm Start: 07-07-2018 End: 01-05-2019 take 10 mg by mouth once daily Lisinopril Discontinued 10 MG PO DAILY July 07, 2018 1:14pm January 05, 2019 1:42pm Start: 02-04-2017 take 1 tablet by tai th once daily LISINOPRIL 5 MG TABS One tablet by mouth daily LISINOPRIL [id number] Felicia Valencia PAPER TWISTER-C Start: 09-17-2016 End: 07-07-2018 take 1 tablet by mouth once daily Lisinopril 40 MG tablet Discontinued 40 mg PO DAILY October 01, 2016 1:00am July 07, 2018 1:15pm Start: 09-17-2016 End: 02-04-2017 take 1 tablet by mouth once daily LISINOPRIL 2.5 MG TABS One tablet by mouth daily LISINOPRIL [id number] Felicia Valencia PAPER TWISTER-C magnesium oxide 400 mg oral tablet (20 sources) Start: 06-26-2022 take 1 tablet by mouth once daily Magnesium Oxide 400 mg (241.3 mg magnesium) tablet Active 400 mg PO DAILY June 26, 2022 12:00am Start: 11-30-2019 End: 12-19-2019 take 400 mg by mouth once daily 400 mg, Oral, Daily, First dose (after last modification) on Wed12/07/19 at 0900 Start: 11-21-2019 End: 11-24-2019 take 400 mg by mouth once daily 400 mg, Oral, Daily, First dose on Wed11/21/19 at 0900 melatonin 10 mg oral tablet (20 sources) Start: 06-26-2022 take 1 tablet by mouth at bedtime as needed Melatonin 10 mg tablet Active 10 mg PO BEDTIME as needed June 26, 2022 12:00am Start: 11-30-2019 End: 12-19-2019 take 10 mg by mouth at bedtime 10 mg, Oral, At bedtime , First dose (after last modification) on Wed12/06/19 at 2100 Start: 11-22-2019 End: 11-24-2019 melatonin Tab 10 mg take 2 tablets by mo [facility] once daily melatonin 5 mg Tab Take 2 (two) tablets (10 mg total) by mouth daily . Active 24 hr metFORMIN hydrochlorid e 500 mg extended release oral tablet (20 sources) Biguanide Start: 06-26-2022 Metformin 500 mg tablet extended release 24 hr Active 1000 mg PO TWICE A DAY June 26, 2022 12:00am Start: 06-28-2020 End: 06-26-2022 take 500 mg by mouth twice daily Metformin Active 500 MG PO TWICE A DAY June 28, 2020 1:09pm Start: 12-07-2019 End: 12-19-2019 metFORMIN (GLUCOPHAGE) table t 1,000 mg Start: 11-01-2019 take 1 tablet by tai th every twenty-four hours metFORMIN HCl ER 500 MG Oral Tablet Extended Release 24 Hour Quantity: 360 Refills: 0 Ordered: 01-Nov-2019 DO Start : 01-Nov-2019 Active Start: 10-21-2018 End: 07-24-2024 take 2 tablets by mouth twice daily metFORMIN XR 500 mg 24 hr tablet Indications: Type 2 diabetes mellitus without complication, without long-term current use of insulin Take 2 tablets (1,000 mg) by mouth 2 times daily (morning and late afternoon). 336 tablet 3 07/24/2024 Active Start: 10-21-2018 metFORMIN (GLU COPHAGE-XR) 500 MG 24 hr tablet 1,000 mg 2 (two) times a day . 0 10/21/2018 Active Start: 09-17-2016 End: 12-14-2017 take 1 tablet by mouth twice daily at mealtime Metformin 1,000 MG tablet Discontinued 1000 mg PO TWICE DAILY WITH MEALS October 01, 2016 1:00am December 14, 2017 1:27pm multivitamin (THERAGRAN) per tablet (20 sources) take 1 tablet by tai th once daily multivitamin (THERAGRAN) per tablet Take 1 (one) tablet by mouth daily . Active take 1 tablet by mouth once jairo y multivitamin (THERAGRAN) per tablet Take 1 (one) tablet by mouth daily . 0 Active take 1 tablet by mouth once jairo y multivitamin (THERAGRAN) per tablet Take 1 tablet by mouth daily . 0 Suspended take 1 tablet by mouth once jairo y multivitamin (THERAGRAN) per tablet Take 1 tablet by mouth daily . 0 Active multivitamin tablet (9 sources) take 1 tablet by mouth once daily multivitamin tablet Take 1 tablet by mouth once daily. Active Multivitamin tablet (1 source) Start: 06-26-20 22 Multivitamin tablet Active 1 {tbl} PO DAILY June 26, 2022 12:00am mupirocin 0.02 mg/mg topical ointment (20 sources) RNA Synthetase Inhibitor Antibacterial Start: 05-28-20 mupirocin (Bactroban) 2 % ointment APPLY OINTMENT TOPICALLY THREE TIMES DAILY 05/28/2024 Active Start: 05-28-2024 mupirocin (ZONIA TROBAN) 2 % ointment Apply topically 3 (three) times a day . 22 g 05/28/2024 Active End: 01-25-2019 mupirocin (BACTROBAN) 2 % oi ntment Indications: ointment on rt toes Apply topically 3 (three) times a day Reasons: ointment on rt toes. 0 01/25/2019 Discontinued nitroglycerin 0.4 mg sublingual tablet (20 sources) Nitrate Vasodilator Start: 11-30-2019 End: 01-18-2020 nitroGLYCERIN (NITROSTAT) 0.[address] 1 (one) tablet (0.4 mg total) under the tongue every 5 (five) minutes as needed for chest pain , if no relief after 3 doses call 911 . 90 tablet 12 12/19/2019 Active omega 0-nye-ewc-fish oil (Fish OiL) 1,000 mg (120 mg-180 mg) capsule (9 sources) omega 7-iak-lwu-fish oil (Fish OiL) 1,000 mg (120 mg-180 mg) capsule Take by mouth. Active [place]-3 Fatty Acids 1,000 mg capsule (1 source) Start: 06-26-2022 take 1 capsule by mouth once daily [place]-3 Fatty Acids 1,000 mg capsule Active 1000 mg PO DAILY June 26, 2022 12:00am omega-3 fatty acids/fish oil (fish oil-omega-3 fatty acids) 300-1,000 mg capsule (20 sources) take 2 capsules by mouth once daily omega-3 fatty acids/fish oil (fish oil-omega-3 fatty acids) 300-1,000 mg capsule Take 2 (two) capsules by mouth daily . Active take 2 capsules by m out once daily omega-3 fatty acids/fish oil (fish oil-omega-3 fatty acids) 300-1,000 mg capsule Take 2 (two) capsules by mouth daily . 0 Active take 1 capsule by mo ut once daily omega-3 fatty acids/fish oil (fish oil-omega-3 fatty acids) 300-1,000 mg capsule Take 2 g by mouth daily . 0 Active End: 11-24-2019 take 1 capsule by mouth once daily omega-3 fatty acids/fish oil (fish oil-omega-3 fatty acids) 300-1,000 mg capsule Take 2 g by mouth daily . 0 11/24/2019 Discontinued (Stop Taking at Discharge) psyllium 3400 mg powder for oral suspension (20 sources) Start: 12-11-2019 End: 01-19-2020 take 1 dose by mouth once daily psyllium (METAMUCIL) 3.4 gram packet Take 1 (one) packet by mouth daily Start: 12/20/19. 30 packet 0 12/20/2019 01/19/2020 Active insulin, regular, human 100 unt/ml injectable solution (20 sources) Insulin Start: 03-19-2025 Insulin Regula r Human (Novolin R Regular U100 Insulin) 100 unit/mL solution Active 0 SC THREE TIMES A DAY March 19, 2025 8:55am 40 units each meal Start: 06-26-2022 End: 03-19-2025 inject 100 [IU] by subcutaneous injection three times daily Insulin Regular Human (Novolin R Regular U100 Insulin) 100 unit/mL solution Discontinued 0 SC THREE TIMES A DAY June 26, 2022 12:00am March 19, 2025 8:57am Sliding scale subcutaneously three times a day; Start: 12-19-2019 End: 12-19-2019 insulin regular (HumuLIN R, NovoLIN R) 100 unit/mL injection Take 12 units three times daily before meals . 20 mL 5 12/19/2019 Active Start: 12-19-2019 End: 12-19-2019 insulin regular (HumuLIN R, NovoLIN R) 100 unit/mL injection Use as directed before meals- about 12 units per meal . 20 mL 12 12/19/2019 12/19/2019 Discontinued (Reorder) Start: 12-18-2019 End: 12-19-2019 insulin regular (HumuLIN R, NovoLIN R) 100 unit/mL injection Use as directed before meals, approx 40 units total daily . 20 mL 12 12/19/2019 12/19/2019 Discontinued (Reorder) Start: 08-23-2019 insulin regula r (NovoLIN R Regular U100 Insulin) 100 unit/mL injection INJECT 4-20 UNITS WITH MEALS USING A SLIDING SCALE; INJECT NO MORE THAN 60 UNITS DAILY 08/23/2019 Active Start: 08-23-2019 End: 12-19-2019 insulin regular (HumuLIN R, NovoLIN R) 100 unit/mL injection [The details of the medication are not available because there are pending changes by a home health clinician.] 20 mL 5 12/19/2019 Active rosuvastatin calcium 20 mg oral tablet (20 sources) HMG-CoA Reductase Inhibitor Start: 11-01-2019 Rosuvastatin Calcium 20 MG Oral Tablet Quantity: 90 Refills: 0 Ordered: 01-Nov-2019 DO Start : 01-Nov-2019 Active Start: 09-17-2016 End: 07-24-2024 take 1 tablet by mouth once daily rosuvastatin (Crestor) 20 mg tablet Indications: Type 2 diabetes mellitus without complication, without long-term current use of insulin Take 1 tablet (20 mg) by mouth once daily. 90 tablet 3 07/24/2024 Active tamsulosin hydrochloride 0.4 mg oral capsule (20 sources) alpha-Adrenergic Lexi Start: 06-23-2019 Tamsu losin HCl - 0.4 MG Oral Capsule Quantity: 90 Refills: 0 Ordered: 23-Jun-2019 DO Start : 23-Jun-2019 Active Start: 06-15-2017 End: 07-24-2024 take 1 capsule by mouth once daily tamsulosin (Flomax) 0.4 mg 24 hr capsule Indications: Benign prostatic hyperplasia with urinary frequency Take 1 capsule (0.4 mg) by mouth once daily. 90 capsule 3 07/24/2024 Active levothyroxine sodium 0.1 mg oral tablet (20 sources) l-Thyroxine Start: 06-28-2020 End: 12-25-2021 Levothyroxine 100 mcg tablet Discontinued 112 ug PO DAILY June 28, 2020 1:09pm December 25, 2021 9:21am Start: 06-28-2020 End: 12-25-2021 take 112 ug by mouth once daily Levothyroxine Disconti nued 112 MCG PO DAILY June 28, 2020 1:09pm December 25, 2021 9:21am Start: 01-12-2019 End: 06-26-2022 take 1 tablet by mouth once daily levothyroxine (SYNTHROID, LEVOTHROID) 112 MCG tablet Take 1 (one) tablet (112 mcg total) by mouth once daily Pt takes daily Wed-Wednesday and skips Wednesday . 01/12/2019 Active Start: 01-12-2019 Levothyroxine Sodium 100 MCG Oral Tablet Quantity: 0 Refills: 0 Ordered: 12-Jan-2019 DO Start : 12-Jan-2019 Active Start: 01-12-2019 Levothyroxine Sodium 112 MCG Oral Tablet Quantity: 90 Refills: 0 Ordered: 12-Jan-2019 DO Start : 12-Jan-2019 Active Start: 09-17-2016 End: 07-24-2024 take 1 tablet by mouth once daily before mealtime levothyroxine (Synthroid, Levoxyl) 100 mcg tablet Indications: Acquired hypothyroidism Take 1 tablet (100 mcg) by mouth once daily in the morning. Take before meals. 90 tablet 3 07/24/2024 Active Completed/Discontinued Medications Medication Drug Class(es) Dates Sig (Normalized) Sig (Original) acetaminophen 325 mg oral tablet (2 sources) Start: 11-30-2019 End: 12-19-2019 take 1 tablet by mouth every four hours as needed 650 mg, Oral, Every 4 hours PRN, mild pain, fever 100.4 F or greater, headaches, Starting Wed12/06/19 at 1727 albuterol 0.83 mg/ml inhalant solution (2 sources) beta2-Adrenergic Agonist Start: 11-30-2019 End: 12-19-2019 take 2.5 mg by inhalation every two hours as needed 2.5 mg, Inhalation, Every 2 hour PRN (RT), wheezing, shortness of breath, Starting Wed12/06/19 at 1727 alteplase (CATH AMANDO) 2 mg injection (20 sources) Start: 12-19-2019 End: 05-03-2020 alteplase (CATH AMANDO) 2 mg injection Instill 2mL into clotted IV line as needed for brake liner. May repeat as needed. Do not use on Peripheral or Midlines . 2 mL 52 12/19/2019 05/03/2020 Discontinued (Stop Taking at Discharge) Start: 12-19-2019 alteplase (CAT H AMANDO) 2 mg injection Instill 2mL into clotted IV line as needed for brake liner. May repeat as needed. Do not use on Peripheral or Midlines . 2 mL 52 12/19/2019 Suspended Start: 12-19-2019 alteplase (CAT H AMANDO) 2 mg injection Instill 2mL into clotted IV line as needed for brake liner. May repeat as needed. Do not use on Peripheral or Midlines . 2 mL 52 12/19/2019 Active alteplase (CATH AMANDO) injection 2 mg (1 source) Start: 11-23-2019 End: 11-24-2019 alteplase (CATH AMANDO) injection 2 mg atorvastatin 40 mg oral tablet (4 sources) HMG-CoA Reductase Inhibitor Start: 05-01-2020 End: 05-03-2020 take 40 mg by mouth once daily 40 mg, Oral, Nightly, First dose on Wed05/01/20 at 2330 Start: 11-30-2019 End: 12-19-2019 take 40 mg by mouth once daily 40 mg, Oral, Nightly, F irst dose (after last modification) on Wed12/06/19 at 2100 Start: 11-20-2019 End: 11-24-2019 take 40 mg by mouth once daily 40 mg, Oral, Nightly, F irst dose on Wed11/20/19 at 2300 bisacodyl 10 mg rectal suppository (1 source) Stimulant Laxative Start: 12-06-2019 End: 12-19-2019 take 10 mg rectal route once daily as needed for constipation 10 mg, Rectal, Daily PRN, constipation, if no bowel movement in 24 hours after docusate sodium (COLACE) administration, Starting Wed12/06/19 at 1727 if no bowel movement in 24 hours after docusate sodium (COLACE) administration calcium chloride 0.0014 meq/ml / potassium chloride 0.004 meq/ml / sodium chloride 0.103 meq/ml / sodium lactate 0.028 meq/ml injectable solution (5 sources) Start: 05-01-2020 End: 05-03-2020 take 100 mL intravenous route every hour 100 mL/hr, Intravenous, Continuous, Starting Wed05/01/20 at 2045, PACU (only) Start: 05-01-2020 End: 05-01-2020 lactated Ringers infusion Start: 12-01-2019 End: 12-03-2019 lactated Ringers infusion Start: 11-20-2019 End: 11-20-2019 take 100 mL intravenous route every hour 100 mL/hr, Intravenous, Continuous, Starting Wed20 at 2015, PACU (only) Start: 01-25-2019 End: 01-25-2019 lactated Ringers infusion canagliflozin 300 mg oral tablet (10 sources) Sodium-Glucose Cotransporter 2 Inhibitor Start: 09-17-2016 End: 12-14-2017 take 1 tablet by mouth once daily Canagliflozin 300 MG tablet Discontinued 300 mg PO DAILY October 01, 2016 1:00am December 14, 2017 1:25pm ceFAZolin 2000 mg injection (2 sources) Cephalosporin Antibacterial Start: 05-02-2020 End: 05-02-2020 take 2000 mg intravenous route every eight hours 2,000 mg, Intravenous, at 100 mL/hr, Every 8 hours, First dose on Meghan 05/02/20 at 0200, For 2 doses Starting 8 hours after pre-procedure dose x 2 doses. Indication (POST PROCEDURE): Ortho Start: 11-22-2019 End: 11-22-2019 take 2000 mg intravenous route every eight hours ceFAZolin (ANCEF) IVPB 2 g (premix) cefepime 2000 mg injection (1 source) Cephalosporin Antibacterial Start: 05-02-2020 End: 05-03-2020 take 2000 mg intravenous route every twelve hours cefePIMe-dextrose (MAXIPIME) 2 gram/50 mL IVPB 2,000 mg cefTRIAXone 2000 mg injection (7 sources) Cephalosporin Antibacterial Start: 11-30-2019 End: 12-11-2019 take 2000 mg intravenous route every twenty-four hours 2,000 mg, Intravenous, Administer over 30 Minutes, Every 24 hours, First dose (after last modification) on Meghan 12/07/19 at 1315 Indication: Septic Arthritis Start: 11-23-2019 End: 11-24-2019 take 2000 mg intravenous route every twenty-four hours cefTRIAXone (ROCEPHIN) IVPB 2 g (premix) End: 12-19-2019 take 2000 mg intravenous route every twenty-four hours cefTRIAXone (ROCEPHIN) 2 gram/50 mL IVPB Infuse 2,000 mg into a venous catheter daily . 0 12/19/2019 Discontinued (Stop Taking at Discharge) ciprofloxacin 500 mg oral tablet (11 sources) Quinolone Antimicrobial End: 05-30-2019 take 1 tablet by mouth twice daily ciprofloxacin HCl (CIPRO) 500 MG tablet Take 500 mg by mouth 2 (two) times a day . 0 05/30/2019 Discontinued (Therapy completed) docusate sodium 100 mg oral capsule (20 sources) Start: 05-02-2020 End: 05-03-2020 take 100 mg by mouth once daily 100 mg, Oral, Daily, First dose on Wed05/02/20 at 0900 Hold for loose stools DO NOT CRUSH OR CHEW. Start: 12-06-2019 End: 12-19-2019 take 100 mg by mouth twice daily as needed for constipation 100 mg, Oral, 2 times daily PRN, constipation, if no bowel movement in 24 hours after Sennosides (SENNA) administration, Starting Wed12/06/19 at 1727 if no bowel movement in 24 hours after Sennosides (SENNA) administration DO NOT CRUSH OR CHEW. Start: 11-30-2019 End: 12-19-2019 take 100 mg by mouth once daily 100 mg, Oral, Daily, First dose (after last modification) on Wed12/07/19 at 0900 Hold for loose stools DO NOT CRUSH OR CHEW. Start: 11-21-2019 End: 11-24-2019 take 100 mg by mouth once daily 100 mg, Oral, Daily, First dose on Wed11/21/19 at 0900 Hold for loose stools DO NOT CRUSH OR CHEW. take 1 tablet by tai th once daily docusate sodium (Stool Softener) 100 mg tablet Take 1 tablet (100 mg) by mouth once daily. Active docusate sodium 50 mg / sennosides, care home 8.6 mg oral tablet (1 source) Start: 01-25-2019 End: 01-25-2019 take 1 tablet by mouth twice daily 1 tablet, Oral, 2 times daily, First dose on Wed01/25/19 at 1100 NOT for abdominal surgery patients. Hold for loose stools. Do Not Crush or Chew if administering orally due to bitter taste. May be crushed if given via tube. 5 ml heparin sodium, porcine 100 unt/ml prefilled syringe (20 sources) Unfractionated Heparin, Anti-coagulant Start: 12-19-2019 End: 05-03-2020 take 5 mL intravenous route every week, then take 3 mL intravenous route heparin, porcine, PF, 100 unit/mL Syrg For Open Ended Midline/PICC/CVC/Port: Flush with 5ml heparin as final flush after each use, weekly if not used. Use 3ml for Peripheral IV . 100 Syringe 52 12/19/2019 05/03/2020 Discontinued (Stop Taking at Discharge) Start: 11-21-2019 End: 11-24-2019 heparin (porcine) injection 5,000 Units hydroCHLOROthiazide 12.5 mg oral capsule (10 sources) Thiazide Diuretic Start: 10-01-2016 End: 12-14-2017 take 12.5 mg by mouth once daily Hydrochlorothiazide Discontinued 12.5 MG PO DAILY October 01, 2016 8:53am December 14, 2017 1:26pm Start: 09-17-2016 End: 11-03-2016 take 1 tablet by mouth once daily HYDROCHLOROTHIAZIDE 12.5 MG TABS One tablet by mouth daily HYDROCHLOROTHIAZIDE [id number] Sebastián Dailey MD 1 ml HYDROmorphone hydrochloride 1 mg/ml injection (2 sources) Opioid Agonist Start: 11-21-2019 End: 11-21-2019 HYDROmorphone (DILAUDID) injection 0.5 mg Start: 11-21-2019 End: 11-21-2019 HYDROmorphone (DILAUDID) inj ection 0.5 mg 3 ml insulin degludec 100 unt/ml pen injector (4 sources) Insulin Analogue Start: 02-04-2017 TRESIBA FLEXT OUCH 100 UNIT/ML SOPN as directed INSULIN DEGLUDEC [id number] Felicia Valencia PAPER TWISTER-C Start: 02-04-2017 TRESIBA FLEXTO UCH 100 UNIT/ML SOPN as directed INSULIN DEGLUDEC [id number] Felicia Valencia PAPER TWISTER-C 3 ml insulin detemir 100 unt/ml pen injector (12 sources) Insulin Analogue Start: 10-01-2016 End: 01-05-2019 Insulin Detemir U-100 Discontinued 80 UNITS SC AT BEDTIME October 01, 2016 8:53am January 05, 2019 1:41pm Start: 10-01-2016 End: 01-05-2019 Insulin Detemir U-100 Discontinued 100 UNITS SC DAILY October 01, 2016 8:53am January 05, 2019 1:41pm Start: 10-01-2016 End: 01-05-2019 Insulin Detemir U-100 100 UNITS/ML insulin pen Discontinued 80 U SC AT BEDTIME October 01, 2016 1:00am January 05, 2019 1:41pm Start: 10-01-2016 End: 01-05-2019 Insulin Detemir U-100 100 UNITS/ML insulin pen Discontinued 100 U SC DAILY October 01, 2016 1:00am January 05, 2019 1:41pm Start: 09-17-2016 End: 02-04-2017 inject 100 [IU] by subcutaneous injection in the morning, then inject 80 [IU] by subcutaneous injection in the evening LEVEMIR 100 UNIT/ML SOLN 100 units sq in the am and 80 units sq in the pm INSULIN DETEMIR [id number] Nelda Cardona RN Start: 09-17-2016 End: 02-04-2017 take 100 [IU] by subcutaneous injection in the morning, then take 80 [IU] by subcutaneous injection in the evening LEVEMIR 100 UNIT/ML SOLN 100 units sq in the am and 80 units sq in the pm INSULIN DETEMIR [id number] Nelda Cardona RN insulin glargine 100 unt/ml injectable solution (11 sources) Insulin Analog Start: 12-08-2019 End: 12-19-2019 insulin glargine (LANTUS) injection 35 Units Start: 12-06-2019 End: 12-08-2019 30 Units, Subcutaneous, 2 ti mes daily, First dose (after last modification) on Wed12/06/19 at 2100 Do not hold basal insulin without notifying physician. If patient NPO and BG < 100 before procedure, administer half of the glargine insulin (Lantus) dose; if BG is >100 administer full dose. Do not mix with other insulins in a syringe. Do NOT hold basal insulin without notifying physician Start: 12-03-2019 End: 12-06-2019 insulin glargine (LANTUS) injection 30 Units Start: 11-30-2019 End: 12-03-2019 insulin glargine (LANTUS) injection 50 Units Start: 11-20-2019 End: 11-24-2019 inject 50 [IU] by subcutaneous injection once daily 50 Units, Subcutaneous, Nightly, First dose on 11/20/19 at 2330 Do not mix with other insulins in a syringe. Do NOT hold basal insulin without notifying physician End: 12-19-2019 inject 50 [IU] by subcutaneous injection once daily insulin glargine (LANTUS) 100 unit/mL (3 mL) InPn Inject 50 Units under the skin nightly . 0 12/19/2019 Discontinued (Stop Taking at Discharge) 3 ml insulin glargine 100 unt/ml / lixisenatide 0.033 mg/ml pen injector (20 sources) Insulin Analog End: 11-10-2019 insulin glargine-lixisenatide (SOLIQUA 100/33) 100 unit-33 mcg/mL InPn Inject 50 Units under the skin . 0 11/10/2019 Discontinued insulin lispro 100 unt/ml injectable solution (13 sources) Insulin Analog Start: 05-02-2020 End: 05-03-2020 inject 1 dose by subcutaneous injection once before mealtime 0-30 Units, Subcutaneous, Before dinner, First dose on Wed05/02/20 at 1630 Dose should be given 10-15 minutes before a meal. If poor oral intake, nausea or blood glucose value < 80 before meal, give of the dose (rounded up to nearest unit) immediately after meal completed. If patient skipping meal, hold base prandial dose and continue to use corrective insulin as ordered. Once diet resumed, total base prandial + corrective doses may be given. Prandial Insulin Dosing Method: NO Prandial Dose - Corrective Scale ONLY Corrective Insulin Regimen (select desired scale to cover BG result): Normal Sensitivity Scale For Downtime Calculator, use: Insulin SC MEALtime PREprandial Start: 05-01-2020 End: 05-03-2020 inject 1 dose by subcutaneous injection once daily before mealtime 0-30 Units, Subcutaneous, Daily before lunch, First dose on Wed05/02/20 at 1130 Dose should be given 10-15 minutes before a meal. If poor oral intake, nausea or blood glucose value < 80 before meal, give of the dose (rounded up to nearest unit) immediately after meal completed. If patient skipping meal, hold base prandial dose and continue to use corrective insulin as ordered. Once diet resumed, total base prandial + corrective doses may be given. Prandial Insulin Dosing Method: NO Prandial Dose - Corrective Scale ONLY Corrective Insulin Regimen (select desired scale to cover BG result): Normal Sensitivity Scale For Downtime Calculator, use: Insulin SC MEALtime PREprandial Start: 12-08-2019 End: 12-19-2019 insulin lispro (HumaLOG) inj ection 0-30 Units Start: 12-07-2019 End: 12-07-2019 inject 1 dose by subcutaneous injection three times daily before mealtime 0-30 Units, Subcutaneous, 3 times daily before meals, First dose (after last modification) on Wed12/07/19 at 0730 Dose should be given 10-15 minutes before a meal. If poor oral intake, nausea or blood glucose value < 80 before meal, give of the dose (rounded up to nearest unit) immediately after meal completed. If patient skipping meal, hold base prandial dose and continue to use corrective insulin as ordered. Once diet resumed, total base prandial + corrective doses may be given. Prandial Insulin Dosing Method: Specific Prandial Doses Specific Prandial Dose (units of Insulin): 0 Corrective Insulin Regimen (select desired scale to cover BG result): Normal Sensitivity Scale For Downtime Calculator, use: Insulin SC MEALtime PREprandial Start: 12-06-2019 End: 12-19-2019 inject 1 dose by subcutaneous injection once daily 0-15 Units, Subcutaneous, At bedtime, First dose (after last modification) on Wed12/06/19 at 2100 For Nightly Insulin Dose Coverage, use: CORRECTIVE (Only) for BG greater than 300 Nightly CORRECTIVE Dose Method: Specific Corrective Dose Nightly Specific CORRECTIVE dose (units of insulin): 2 For Downtime Calculator, use: Insulin SC NIGHTtime Start: 11-30-2019 End: 12-06-2019 insulin lispro (HumaLOG) inj ection 0-15 Units Start: 11-20-2019 End: 11-24-2019 insulin lispro (HumaLOG) inj ection 0-30 Units 3 ml insulin aspart, human 100 unt/ml pen injector (20 sources) Insulin Analogue Start: 01-05-2019 End: 06-26-2022 Insulin Aspart U-100 100 unit/mL insulin pen Discontinued 50 U SC 3 TIMES DAILY WITH MEALS January 05, 2019 1:40pm June 26, 2022 10:58am Start: 10-01-2016 End: 01-05-2019 Insulin Aspart U-100 Discont inued 10 UNITS SC 3 TIMES DAILY WITH MEALS October 01, 2016 8:53am January 05, 2019 1:42pm Start: 10-01-2016 End: 01-05-2019 Insulin Aspart U-100 100 UNI TS/ML insulin pen Discontinued 10 U SC 3 TIMES DAILY WITH MEALS October 01, 2016 1:00am January 05, 2019 1:42pm Start: 09-17-2016 NOVOLOG 100 UN IT/ML SOLN 46 units after meals INSULIN ASPART [id number] Sebastián Dailey MD Start: 09-17-2016 inject 10 [IU] by quintana bcutaneous injection before mealtime NOVOLOG 100 UNIT/ML SOLN 10 units sq before meals INSULIN ASPART [id number] Nelda Cardona RN Start: 09-17-2016 NOVOLOG 100 UN IT/ML SOLN 46 units after meals INSULIN ASPART [id number] Sebastián Dailey MD Start: 09-17-2016 take 10 [IU] by subc utaneous injection before mealtime NOVOLOG 100 UNIT/ML SOLN 10 units sq before meals INSULIN ASPART [id number] Nedla Cardona RN Start: 01-15-2016 End: 11-10-2019 insulin aspart U-100 (NovoLO G Flexpen U-100 Insulin) 100 unit/mL (3 mL) InPn Sliding scale starting at 10 units at the most 20 units 0 01/15/2016 11/10/2019 Discontinued insulin human, isophane 100 unt/ml injectable suspension (20 sources) Start: 05-02-2020 End: 05-03-2020 insulin NPH (HumuLIN,NovoLIN ) injection 40 Units Start: 05-01-2020 End: 05-03-2020 36 Units, Subcutaneous, At b edtime, First dose on Wed05/01/20 at 2315 Call ordering physician before holding basal insulin. If patient NPO, administer the scheduled evening dose of NPH insulin and one-half (rounded up to the nearest unit) of the scheduled morning dose unless otherwise instructed by the ordering physician. Start: 12-19-2019 insulin NPH (H umuLIN,NovoLIN) 100 unit/mL injection [The details of the medication are not available because there are pending changes by a home health clinician.] 20 mL 12 12/19/2019 Active Start: 12-18-2019 End: 12-19-2019 insulin NPH (HumuLIN,NovoLIN ) 100 unit/mL injection Take 30 units with breakfast, and 26 units at bedtime . 20 mL 12 12/19/2019 Active Lidocaine (2 sources) Antiarrhythmic, Amide Local Anesthetic Start: 05-02-2020 End: 05-03-2020 take 1 mL intradermal route every twenty-four hours as needed lidocaine 10 mg/mL (1 %) injection 1 mL Start: 11-23-2019 End: 11-24-2019 take 1 mL intradermal route every twenty-four hours as needed lidocaine 10 mg/mL (1 %) injection 1 mL meropenem 1000 mg injection (20 sources) Penem Antibacterial Start: 12-19-2019 End: 01-05-2020 take 1000 mg intravenous route every twelve hours meropenem (MERREM) 1 gram/50 mL Infuse 50 mL (1,000 mg total) into a venous catheter every 12 (twelve) hours . 60 each 0 12/19/2019 01/05/2020 Discontinued (Therapy completed) Start: 12-19-2019 End: 01-02-2020 take 1000 mg intravenous route every twelve hours meropenem 1,000 mg IV (Outpatient Therapy) Indications: Skin soft tissue Infuse 1,000 (one thousand) mg into a venous catheter every 12 (twelve) hours End: 01/02/20 28 vial 0 12/19/2019 01/02/2020 Start: 12-11-2019 End: 12-19-2019 take 1000 mg intravenous route every twelve hours meropenem (MERREM) 1000 mg in sodium chloride (NS) 0.9% 50 mL (premix) metoprolol tartrate 25 mg oral tablet (10 sources) beta-Adrenergic Lexi Start: 09-17-2016 End: 12-14-2017 take 1 tablet by mouth twice daily Metoprolol Tartrate 25 MG tablet Discontinued 25 mg PO TWICE A DAY October 01, 2016 1:00am December 14, 2017 1:27pm multivitamin (THERAGRAN) per tablet 1 tablet (1 source) Start: 11-21-2019 End: 11-24-2019 take 1 tablet by mouth once daily 1 tablet, Oral, Daily, First dose on Wed11/21/19 at 0900 naloxone (NARCAN) injection 0.1 mg (3 sources) Start: 12-06-2019 End: 12-19-2019 naloxone (NARCAN) injection 0.1 mg Start: 11-21-2019 End: 11-24-2019 naloxone (NARCAN) injection 0.1 mg Start: 01-25-2019 End: 01-25-2019 naloxone (NARCAN) injection 0.1 mg ondansetron 4 mg disintegrating oral tablet (7 sources) Serotonin-3 Receptor Antagonist Start: 11-30-2019 End: 12-19-2019 take 1 tablet by mouth every six hours as needed 4 mg, Oral, Every 6 hours PRN, nausea, vomiting, Starting Wed12/06/19 at 1727 Orally disintegrating tablet: Open blister pack and place tablet on the tongue; tablet is formulated to dissolve on the tongue without water; do not split tablet. Formulation requires tablet remain in sealed package until immediately prior to dose being administered. End: 12-19-2019 take 1 tablet by mouth every eight hours as needed ondansetron (ZOFRAN) 4 MG tablet Take 4 mg by mouth every 8 (eight) hours as needed for nausea . 0 12/19/2019 Discontinued (Stop Taking at Discharge) oxyCODONE hydrochloride 5 mg oral tablet (3 sources) Opioid Agonist Start: 05-01-2020 End: 05-03-2020 take 1 tablet by mouth every four hours 5 mg, Oral, Every 4 hours, First dose on Wed05/01/20 at 2200 Start: 01-25-2019 End: 01-25-2019 take 1 tablet by mouth every four hours 5 mg, Oral, Every 4 hours, First dose on Wed01/25/19 at 1100, For 6 doses [] Hold for sedation Start: 01-25-2019 End: 01-25-2019 take 5-15 mg by mouth every four hours as needed 5-15 mg, Oral, Every 4 hours PRN (may repeat), moderate to severe pain, Starting Wed01/25/19 at 1001 [] Initiate with 10 mg oral every 4 hours prn moderate to severe pain. [] For unrelieved pain, may repeat 5 mg oral dose within 60 minutes of initial dose. [] If pain is RELIEVED after repeat dose, change to 15 mg oral every 4 hours prn moderate to severe pain. [] If pain is UNrelieved after repeat dose, or patient requires dose reduction, call physician. [] If multiple routes are ordered for pain meds, it is recommended that oral be the first choice, IV the second choice, rectal the third choice, and IM the fourth choice. perflutren lipid microspheres (DEFINITY) 0.143 mg/mL solution 0-10 mL of mixture (1 source) Start: 11-23-2019 End: 11-23-2019 perflutren lipid microspheres (DEFINITY) 0.143 mg/mL solution 0-10 mL of mixture pravastatin sodium 80 mg oral tablet (6 sources) HMG-CoA Reductase Inhibitor Start: 09-17-2016 End: 12-14-2017 take 1 tablet by mouth once daily Pravastatin 80 MG tablet Discontinued 80 mg PO DAILY October 01, 2016 1:00am December 14, 2017 1:27pm sennosides, care home 8.6 mg oral tablet (1 source) Start: 12-06-2019 End: 12-19-2019 take 1 tablet by mouth twice daily as needed for constipation 8.6 mg (1 tablet), Oral, 2 times daily PRN, constipation, if no bowel movement in 24 hours, Starting 12/06/19 at 1727 Sodium Chloride (20 sources) Start: 05-02-2020 End: 05-03-2020 sodium chloride (PF) (NS) flush 10 mL Start: 05-02-2020 End: 05-03-2020 sodium chloride (PF) (NS) fl [facility] 10-20 mL Start: 12-23-2019 End: 12-22-2019 sodium chloride, PF, (NS) in jection Start: 12-18-2019 End: 01-05-2020 sodium chloride, PF, (NS) in jection Midline/PICC/CVC/Port: Flush with 10ml pre/post use, weekly if not used, 20ml after lab draw/TPN. Use 5ml for Peripheral IV pre/post use . 100 mL 52 12/19/2019 01/05/2020 Discontinued (Therapy completed) Start: 11-23-2019 End: 11-24-2019 sodium chloride (PF) (NS) fl [facility] 10 mL Start: 11-23-2019 End: 11-24-2019 sodium chloride (PF) (NS) fl [facility] 10-20 mL Start: 11-21-2019 End: 11-24-2019 sodium chloride 0.9% (NS) Start: 01-25-2019 End: 01-25-2019 sodium chloride (PF) (NS) fl us 5 mL sodium phosphate, dibasic 59.3 mg/ml / sodium phosphate, monobasic 161 mg/ml enema (1 source) Start: 12-06-2019 End: 12-19-2019 1 each, Rectal, Daily PRN, other, if no bowel movement in 24 hours after bisacodyl (DULCOLAX) suppository administration, Starting Wed12/06/19 at 1727 if no bowel movement in 24 hours after bisacodyl (DULCOLAX) suppository administration traZODone hydrochloride 50 mg oral tablet (2 sources) Serotonin Reuptake Inhibitor Start: 11-30-2019 End: 12-19-2019 take 50 mg by mouth once daily as needed for sleep 50 mg, Oral, Nightly PRN, sleep, Starting Wed12/06/19 at 1727 [] May repeat times 1 in 30 minutes if still awake. Problems Active Problems Problem Classification Problem Date Documented Date Episodic/Chronic Acquired foot deformities (1 source) Acquired hammer toe of right foot; Translations: [Acquired hammer toe of right foot] Administrative/social admission (2 sources) First encounter by subject; Translations: [Persons encountering health services in other specified circumstances] 01-11-2025 Episodic Bacterial infection; unspecified site (20 sources) Infection due to Enterobacteriaceae; Translations: [Disease due to Gram-negative bacteria] Episodic Cardiac dysrhythmias (7 sources) Sinus bradycardia; Translations: [Bradycardia, unspecified] Onset: 5 01-11-2025 Episodic Chronic ulcer of skin (20 sources) Ulcer of foot; Translations: [Ulcer of lower extremity] Onset: 9 03-31-2019 Chronic Chronic ulcer of skin (20 sources) Ulcer of right foot; Translations: [Right foot ulcer] Onset: 0 11-21-2019 Complication of device; implant or graft (1 source) Arteriosclerosis of coronary artery bypass graft; Translations: [Atherosclerosis of coronary artery bypass graft(s) without angina pectoris] 01-11-2025 Chronic Complications of surgical procedures or medical care (17 sources) Dehiscence of wound of skin; Translations: [Dehiscence of surgical wound] Episodic Conduction disorders (5 sources) First degree atrioventricular block; Translations: [Atrioventricular block, first degree] Onset: 5 01-11-2025 Chronic Congestive heart failure; nonhypertensive (11 sources) Heart failure, unspecified; Translations: [Acute on chronic combined systolic (congestive) and diastolic (congestive) heart failure] Onset: 4 Chronic Coronary atherosclerosis and other heart disease (15 sources) Atherosclerotic heart disease of [place] coronary artery without angina pectoris; Translations: [Coronary arteriosclerosis] Onset: 7 10-30-2016 Chronic Coronary atherosclerosis and other heart disease (11 sources) Presence of aortocoronary bypass graft; Translations: [Aortocoronary bypass status] Onset: 7 10-30-2016 Episodic Deficiency and other anemia (2 sources) Iron deficiency anemia; Translations: [Iron deficiency anemia, unspecified] 01-11-2025 Episodic Diabetes mellitus with complications (20 sources) Type 2 diabetes mellitus with foot ulcer; Translations: [Diabetes mellitus] Onset: 5 09-17-2016 Chronic Diabetes mellitus without complication (20 sources) Secondary diabetes mellitus; Translations: [Diabetes mellitus] Onset: 9 03-31-2019 Chronic Disorders of lipid metabolism (20 sources) Hyperlipidemia; Translations: [Mixed hyperlipidemia] Onset: 5 09-17-2016 Chronic Essential hypertension (20 sources) Essential hypertension; Translations: [Hypertensive disorder] Onset: 5 12-09-2019 Chronic Fracture of lower limb (20 sources) Closed fracture of shaft of tibia; Translations: [Closed fracture of metatarsal bone] 03-27-2021 Episodic Genitourinary symptoms and ill-defined conditions (20 sources) Overflow incontinence of urine; Translations: [Overflow incontinence] Onset: 1 Chronic Heart valve disorders (8 sources) Nonrheumatic mitral (valve) insufficiency; Translations: [Rheumatic tricuspid insufficiency] Onset: 4 Chronic Hyperplasia of prostate (20 sources) Benign prostatic hypertrophy with outflow obstruction; Translations: [Hyperplasia of prostate] Onset: 5 12-09-2019 Chronic Hypertension with complications and secondary hypertension (5 sources) Hypertensive heart disease with congestive heart failure; Translations: [Hypertensive heart disease with heart failure] Onset: 4 06-21-2024 Chronic Infective arthritis and osteomyelitis (except that caused by tuberculosis or sexually transmitted disease) (20 sources) Osteomyelitis of lower leg; Translations: [Acute osteomyelitis] Onset: 0 11-30-2019 Chronic Infective arthritis and osteomyelitis (except that caused by tuberculosis or sexually transmitted disease) (20 sources) Osteomyelitis of right ankle; Translations: [Subacute osteomyelitis of right ankle] Onset: 0 11-30-2019 Mycoses (11 sources) Onychomycosis; Translations: [Tinea unguium] Episodic Nutritional deficiencies (4 sources) Vitamin D deficiency; Translations: [Vitamin D deficiency, unspecified] Onset: 5 01-11-2025 Chronic Open wounds of extremities (1 source) Injury of right leg; Translations: [Unspecified open wound, right lower leg, initial encounter] 01-05-2024 Episodic Other aftercare (6 sources) penitentiary (current) use of insulin; Translations: [intermediate designer (current) use of insulin] Onset: 3 Episodic Other aftercare (1 source) Long-term current use of insulin; Translations: [penitentiary (current) use of insulin] 03-08-2023 Episodic Other aftercare (1 source) Patient encounter status; Translations: [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] 03-14-2025 Episodic Other aftercare (2 sources) 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; Translations: [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] Onset: 5 Episodic Other and unspecified benign neoplasm (1 source) Polyp of colon; Translations: [Polyp of colon] Onset: 3 Episodic Other and unspecified benign neoplasm (1 source) Polyp of colon; Translations: [Polyp of colon] 03-08-2023 Episodic Other circulatory disease (6 sources) Electrocardiogram abnormal; Translations: [Abnormal electrocardiogram [ECG] [EKG]] Onset: 6 09-17-2016 Episodic Other circulatory disease (3 sources) Vascular insufficiency; Translations: [Venous insufficiency] Episodic Other connective tissue disease (2 sources) Swelling of lower limb; Translations: [Other specified soft tissue disorders] 07-24-2024 Episodic Other diseases of veins and lymphatics (5 sources) Peripheral venous insufficiency; Translations: [Venous insufficiency (chronic) (peripheral)] 11-13-2024 Episodic Other hematologic conditions (16 sources) ESR raised; Translations: [Elevated sed rate] Episodic Other injuries and conditions due to external causes (2 sources) Unspecified multiple injuries, initial encounter; Translations: [Unspecified multiple injuries, initial encounter] Onset: 4 Episodic Other nervous system disorders (20 sources) Neuropathy; Translations: [Polyneuropathy, unspecified] Chronic Other non-traumatic joint disorders (20 sources) Charcot's joint of foot; Translations: [Charcot's joint of right foot] Chronic Other non-traumatic joint disorders (20 sources) Joint effusion of ankle AND/OR foot; Translations: [Effusion, unspecified ankle] Episodic Other nutritional; endocrine; and metabolic disorders (2 sources) Body mass index (BMI) 36.0-36.9, adult; Translations: [Body mass index (BMI) 36.0-36.9, adult] Onset: 7 06-15-2017 Chronic Other nutritional; endocrine; and metabolic disorders (20 sources) Morbid obesity; Translations: [Morbid (severe) obesity due to excess calories] Onset: 0 11-30-2019 Chronic Other nutritional; endocrine; and metabolic disorders (2 sources) Obesity; Translations: [Obesity, unspecified] 12-24-2021 Chronic Other nutritional; endocrine; and metabolic disorders (7 sources) Severe obesity; Translations: [Class 2 severe obesity due to excess calories with serious comorbidity and body mass index (BMI) of 37.0 to 37.9 in adult] Onset: 4 01-11-2025 Chronic Other nutritional; endocrine; and metabolic disorders (2 sources) Morbid (severe) obesity due to excess calories; Translations: [Morbid (severe) obesity due to excess calories (Multi)] Onset: 5 Chronic Other nutritional; endocrine; and metabolic disorders (2 sources) Body mass index (BMI) 37.0-37.9, adult; Translations: [Body mass index (BMI) 37.0-37.9, adult] Onset: 5 Chronic Other screening for suspected conditions (not mental disorders or infectious disease) (12 sources) Encounter for screening for malignant neoplasm of colon; Translations: [Patient encounter status] Onset: 3 Episodic Other screening for suspected conditions (not mental disorders or infectious disease) (16 sources) Elevated C-reactive protein; Translations: [Elevated C-reactive protein (CRP)] Agneli-; endo-; and myocarditis; cardiomyopathy (4 sources) Cardiomyopathy in diseases classified elsewhere; Translations: [Cardiomyopathy in diseases classified elsewhere] Onset: 6 09-22-2016 Chronic Peripheral and visceral atherosclerosis (4 sources) Peripheral vascular disease, unspecified; Translations: [Peripheral vascular disease, unspecified] 06-23-2024 Chronic Residual codes; unclassified (20 sources) Obstructive sleep apnea syndrome; Translations: [Obstructive sleep apnea (adult) (pediatric)] Onset: 0 11-30-2019 Chronic Residual codes; unclassified (1 source) Sleep apnea, unspecified; Translations: [Sleep apnea, unspecified] Onset: 3 Chronic Residual codes; unclassified (1 source) Sleep apnea; Translations: [Sleep apnea, unspecified] 03-08-2023 Chronic Residual codes; unclassified (1 source) Bilateral lower leg edema; Translations: [Localized edema] Episodic Residual codes; unclassified (1 source) Procedure and treatment not carried out for other reasons; Translations: [Procedure and treatment not carried out for other reasons] Onset: 3 Episodic Residual codes; unclassified (1 source) Procedure not done; Translations: [Procedure and treatment not carried out for other reasons] 01-11-2023 Episodic Residual codes; unclassified (2 sources) Generalized edema; Translations: [Generalized edema] Onset: 4 Episodic Residual codes; unclassified (13 sources) Bilateral lower limb edema; Translations: [Localized edema] 07-14-2024 Episodic Residual codes; unclassified (1 source) Orthopedic hardware in situ; Translations: [Retained orthopedic hardware] Skin and subcutaneous tissue infections (1 source) Cellulitis of right foot; Translations: [Cellulitis of right foot] Superficial injury; contusion (19 sources) Traumatic blister of lower limb; Translations: [Blister of foot] Onset: 4 Episodic Thyroid disorders (20 sources) Hypothyroidism; Translations: [Hypothyroidism, unspecified] Onset: 5 09-17-2016 Chronic Unclassified (6 sources) Echocardiogram abnormal; Translations: [Abnormal findings on diagnostic imaging of heart and coronary circulation] Onset: 6 09-22-2016 Episodic Unclassified (3 sources) Preoperative cardiovascular examination ; Translations: [Encounter for preprocedural cardiovascular examination] Onset: 6 09-17-2016 Unclassified (12 sources) Patient encounter status; Translations: [Preop testing] Unclassified (1 source) 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; Translations: [Presence of aortocoronary bypass graft] Onset: 7 10-30-2016 Unclassified (20 sources) History of arthrodesis of ankle; Translations: [S/P ankle arthrodesis] Onset: 0 05-01-2020 Unclassified (1 source) Skin ulcer of second toe of left foot with fat layer exposed (HCC) 08-11-2024 Unclassified (1 source) Chronic foot ulcer with fat layer exposed, left (HCC) 08-11-2024 Unclassified (4 sources) Wound Check Onset: 5 Unclassified (1 source) Obesity, class 2; Translations: [Obesity, class 2] Onset: 5 Past or Other Problems Problem Classification Problem Date Documented Da te Episodic/Chronic Deficiency and other anemia (2 sources) Iron deficiency anemia, unspecified; Translations: [Iron deficiency anemia, unspecified] Onset: 01-11-2025 Episodic Genitourinary symptoms and ill-defined conditions (14 sources) Retention of urine; Translations: [Retention of urine, unspecified] Onset: 07-24-2024 Episodic Mood disorders (20 sources) Mood disorders Onset: 06-26-2024 06-26-2024 Other aftercare (4 sources) Encounter for other specified surgical aftercare; Translations: [Encounter for other specified surgical aftercare] Onset: 06-23-2024 Episodic Other bone disease and musculoskeletal deformities (2 sources) Other specified disorders of bone, lower leg; Translations: [Other specified disorders of bone, lower leg] Onset: 06-06-2024 Episodic Other connective tissue disease (1 source) Pain in right lower limb; Translations: [Right leg pain] Episodic Other connective tissue disease (20 sources) History of arthrodesis of ankle; Translations: [Arthrodesis status] Onset: 05-01-2020 05-01-2020 Episodic Other connective tissue disease (4 sources) Other specified soft tissue disorders; Translations: [Other specified soft tissue disorders] Onset: 06-21-2024 Episodic Other connective tissue disease (2 sources) Pain in left foot; Translations: [Pain in left foot] Onset: 01-08-2025 Episodic Other diseases of veins and lymphatics (2 sources) Venous insufficiency (chronic) (peripheral); Translations: [Venous insufficiency (chronic) (peripheral)] Onset: 11-13-2024 Episodic Other male genital disorders (2 sources) Other specified disorders of the male genital organs; Translations: [Other specified disorders of the male genital organs] Onset: 06-23-2024 Episodic Other non-traumatic joint disorders (1 source) Ankle pain; Translations: [Pain and swelling of right ankle] Episodic Residual codes; unclassified (20 sources) H/O: surgery; Translations: [S/P foot surgery, right] Onset: 12-09-2019 12-09-2019 Episodic Residual codes; unclassified (20 sources) History of operative procedure on foot; Translations: [Other specified postprocedural states] Onset: 12-09-2019 12-09-2019 Episodic Residual codes; unclassified (4 sources) Localized edema; Translations: [Localized edema] Onset: 07-28-2024 Episodic Residual codes; unclassified (2 sources) Illness, unspecified; Translations: [Illness, unspecified] Onset: 06-23-2024 Episodic Skin and subcutaneous tissue infections (20 sources) Cellulitis; Translations: [Cellulitis, unspecified] Onset: 11-30-2019 11-30-2019 Episodic Spondylosis; intervertebral disc disorders; other back problems (11 sources) Neck pain; Translations: [Cervicalgia] Onset: 01-11-2025 01-11-2025 Episodic Unclassified (9 sources) Onset: 01-19-2024 Resolved: 04-25-2025 01-19-2024 Unclassified (1 source) Obesity, class 2; Translations: [Obesity, class 2] Onset: 01-11-2025 NEGATED: Highlighted row has not occurred!Residual codes; unclassified (14 sources) Disease Episodic Results Test Name Value Interpretation Reference Range Facility Apply dressingon 04-16-2025 Danyll applied dressing to legs and feet [facility] Apply dressingOrdered By: St pedro Tate on 04-16-2025 [facility] Apply dressingon 04-02-2025 Kerlix and zechariah baez ge bilateral legs. Wounds are healed. Double layer Kb to the left great toe and left fifth toe open wounds Frequency: Patient is to change dressing only to the left great toe and left fifth toe [facility] Apply dressingOrdered By: Mena Magaña on 04-02-2025 [facility] Cardiology Visit Reporton Cardiology Visit Report [facility] [place] [id number] [facility] [place] [address] OFFICE VISIT Date of Service: 03/19/25 MR#: [id number] Acct: [id number] Name: DYLLAN HUERTAS Rep #: [id number] : 1960 Provider: TEE fierro Age/Sex: 64/M Location: [facility] Status: Signed HPI HPI History of Present Illness Details: DYLLAN HUERTAS, is a 64 M who presents to the office today for a cardiovascular outpatient follow- up. He has a history of coronary artery disease status post bypass surgery in October 2016 with PETERS to diagonal branch and reverse SVG to ramus intermedius and posterior descending artery. He also has a history of ischemic cardiomyopathy, hypertension, hyperlipidemia, diabetes mellitus, and Charcot right foot with foot surgery in March 2017, November 2019, and May 2020. He denies chest, arm, jaw, or neck discomfort. He denies palpitations. He states bilateral lower extremity edema. He denies claudication. He denies shortness of breath with activity, shortness of breath at rest, orthopnea, or PND. He denies chronic cough. He denies significant, sudden weight gain. He states lightheadedness when standing too quickly. He denies dizziness, near-syncope, or syncope. He denies blood in urine, blood in stool, or epistaxis. He denies fever or chills. He denies myalgia. He states fatigue and difficulty sleeping. His exercise level has remained stable. 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 Required: No Accompanied by: Self Is patient in pain?: No Allergies No Known Allergies Allergy (Verified 03/19/25 08:52) Medications ???Medication ???Instructions ???Recorded ???Confirmed ???Type gabapentin 300 mg capsule 300 mg PO QDAY 12/09/17 03/19/25 H istory rosuvastatin 20 mg tablet 20 mg PO QDAY 12/09/17 03/19/25 Hi story tamsulosin 0.4 mg capsule 0.4 mg PO QDAY 12/09/17 03/19/25 H istory chlorthalidone 25 mg tablet 12.5 mg PO DAILY 03/31/21 03/19/25 History fenofibrate 160 mg tablet 160 mg PO DAILY 12/25/21 03/19/25 History ferrous sulfate 325 mg (65 mg 325 mg PO DAILY 12/25/21 03/19/25 History iron) tablet aspirin 81 mg tablet,delayed 162 mg PO QDAY 06/26/22 03/19/25 H istory release (Adult Low Dose Aspirin) calcium carbonate (Calcium 600) 1,200 mg PO QPM 06/26/22 03/19/25 History cholecalciferol (vitamin D3) 25 25 mcg PO DAILY 06/26/22 03/19/25 History mcg (1,000 unit) tablet magnesium oxide 400 mg (241.3 mg 400 mg PO DAILY 06/26/22 03/19/25 History magnesium) tablet melatonin 10 mg tablet 10 mg PO HS PRN 06/26/22 03/19/25 History metformin 500 mg tablet,extended 1,000 mg PO BID 06/26/22 03/19/25 History release 24 hr multivitamin 1 tab PO DAILY 06/26/22 03/19/25 H istory omega-3 fatty acids 1,000 mg 1,000 mg PO DAILY 06/26/22 5 History capsule finasteride 5 mg tablet 2.5 mg PO MOWEFR 03/31/23 03/19/25 History levothyroxine 100 mcg tablet 100 mcg PO DAILY 03/31/23 03/19/25 History carvedilol 25 mg tablet 12.5 mg PO BID 03/19/25 History empagliflozin 25 mg tablet mg PO 03/19/25 03/19/25 History (Jardiance) ergocalciferol (vitamin D2) 1,250 PO 03/19/25 03/19/25 History mcg (50,000 unit) capsule insulin human U-100 NPH-regulr See Rx Instructions subcut .COMPLE X 03/19/25 03/19/25 History 70-30 mix 100 unit/mL subcutaneous susp (Novolin 70/30 U-100 Insulin) insulin regular human 100 unit/mL See Rx Instructions subcut TID 03/19/25 History injection solution (Novolin R Regular U-100 Insulin) lisinopril 40 mg tablet 20 mg PO QDAY 03/19/25 03/19/25 Hi story Have you fallen in the past year?: No [facility] Medical History (Updated 03/19/25 @ 09:23 by Dean Peng MEDICAL SURGICAL TECH, MEDICAL SURGICAL TECH-C) Obesity Ischemic cardiomyopathy Essential (primary) hypertension Hyperlipidemia Type 2 diabetes mellitus with foot ulcer Hypothyroidism Atherosclerotic heart disease of [place] coronary artery without angina pectoris Surgical History History of partial amputation of toe of left foot History of foot surgery H/O coronary artery bypass surgery (10/16/16) Family History Mother CAD (coronary artery disease) Diabetes Father CAD (coronary artery disease) Diabetes Sudden cardiac Social History Smoking Status: Never smoker alcohol intake: current alcohol intake frequency: a few times a month Alcohol type: beer substance use type: (more content not included)... Normal [facility] No Panel Informationon 03-19 Applied dressings [facility] No Panel InformationOrdered By: Silvia Gotti on 03-19-2025 [facility] Apply dressingon 03-13-2025 Tony applied bilateral dressings. [facility] Apply dressingOrdered By: Liv Gotti on 03-13-2025 [facility] No Panel Informationon 03-06 Beatriz applied dressing. [facility] No Panel InformationOrdered By: Silvia Gotti on 03-06-2025 [facility] Apply dressingon 02-27-2025 Danyll applied dressing and zechariah [facility] Apply dressingOrdered By: St pedro Tate on 02-27-2025 [facility] ALBUMIN, RANDOM URINE W/CREA TININEon 02-22-2025 ALBUMIN, URINE 16.2 mg/dL Normal See Note: [facility] Comment on above: Order Comment: FASTI NG:YES FASTING: YES Result Comment: Refe rence Range: Reference Range Not established Performed By: #### 8 66, 49135, 457, 56437, 31578, 6517, 899, 622, 6399, 7573 #### [facility] [address], [address] [place] [address] Nuclear Officer: Bogdan Kyle MD ALBUMIN/CREATININE RATIO, RANDOM URINE 324 mg/g creat High <30 [facility] Comment on above: Order Comment: FASTI NG:YES FASTING: YES Result Comment: The ADA defines abnormalities in albumin excretion as follows: Albuminuria Category Result (mg/g creatinine) Normal to Mildly increased <30 Moderately increased 30-299 Severely increased > OR = 300 The ADA recommends that at least two of three specimens collected within a 3-6 month period be abnormal before considering a patient to be within a diagnostic category. Performed By: #### 8 66, 28371, 457, 51296, 75754, 6517, 899, 622, 6399, 7573 #### [facility] [address], [address] [place] [address] Nuclear Officer: Bogdan Kyle MD Creatinine (U) [Mass/Vol] 50 mg/dL Normal 20-320 [facility] Comment on above: Order Comment: FASTI NG:YES FASTING: YES Performed By: #### 8 66, 78355, 457, 74045, 47621, 6517, 899, 622, 6399, 7573 #### [facility] [address], [address] [place] [address] Nuclear Officer: Bogdan Kyle MD CBC (INCLUDES DIFF/PLT)on Basophils (Bld) [#/Vol] 0.023 10*3/uL Normal 0-200 [facility] Comment on above: Performed By: #### 8 66, 99305, 457, 24290, 24232, 6517, 899, 622, 6399, 7573 #### [facility] [place] [address] Nuclear Officer: Bgodan Kyle MD Basophils/100 WBC (Bld) 0.4 % Normal [facility] Comment on above: Performed By: #### 8 66, 02515, 457, 27330, 67574, 6517, 899, 622, 6399, 7573 #### [facility] [place] [address] Nuclear Officer: Bogdan Kyle MD Eosinophils (Bld) [#/Vol] 0.222 10*3/uL Normal 15-500 [facility] Comment on above: Performed By: #### 8 66, 30143, 457, 87120, 54471, 6517, 899, 622, 6399, 7573 #### [facility] [place] [address] Nuclear Officer: Bogdan Kyle MD Eosinophils/100 WBC (Bld) 3.9 % Normal [facility] Comment on above: Performed By: #### 8 66, 79794, 457, 16347, 48174, 6517, 899, 622, 6399, 7573 #### [facility] [place] [address] Nuclear Officer: Bogdan Kyle MD Erythrocyte distribution width (RBC) [Ratio] 14.6 % Normal 11.0-15.0 [facility] Comment on above: Performed By: #### 8 66, 61634, 457, 32745, 36413, 6517, 899, 622, 6399, 7573 #### [facility] [place] [address] Nuclear Officer: Bogdan Kyle MD Hematocrit (Bld) [Volume fraction] 39.8 % Normal 38.5-50.0 [facility] Comment on above: Performed By: #### 8 66, 84055, 457, 02772, 16593, 6517, 899, 622, 6399, 7573 #### [facility] [place] [address] Nuclear Officer: Bogdan Kyle MD Hemoglobin (Bld) [Mass/Vol] 12.8 g/dL Low 13.2-17.1 [facility] Comment on above: Performed By: #### 8 66, 00150, 457, 77154, 08194, 6517, 899, 622, 6399, 7573 #### [facility] [place] [address] Nuclear Officer: Bogdan Kyle MD Lymphocytes (Bld) [#/Vol] 0.496 10*3/uL Low 850-3900 [facility] Comment on above: Performed By: #### 8 66, 18453, 457, 07470, 65758, 6517, 899, 622, 6399, 7573 #### [facility] [place] [address] Nuclear Officer: Bogdan Kyle MD Lymphocytes/100 WBC (Bld) 8.7 % Normal [facility] Comment on above: Performed By: #### 8 66, 45565, 457, 69381, 37705, 6517, 899, 622, 6399, 7573 #### [facility] [place] [address] Nuclear Officer: Bogdan Kyle MD MCH (RBC) [Entitic mass] 29.5 pg Normal 27.0-33.0 [facility] Comment on above: Performed By: #### 8 66, 68511, 457, 48740, 70412, 6517, 899, 622, 6399, 7573 #### [facility] [place] [address] Nuclear Officer: Bogdan Kyle MD MCHC (RBC) [Mass/Vol] 32.2 g/dL Normal 32.0-36.[address] [facility] Comment on above: Result Comment: For adults, a slight decrease in the calculated MCHC value (in the range of 30 to 32 g/dL) is most likely not clinically significant; however, it should be interpreted with caution in correlation with other red cell parameters and the patient's clinical condition. Performed By: #### 8 66, 16601, 457, 47072, 56546, 6517, 899, 622, 6399, 7573 #### [facility] [place] [address] Nuclear Officer: Bogdan Kyle MD MCV (RBC) [Entitic vol] 91.7 fL Normal 80.0-100.0 [facility] Comment on above: Performed By: #### 8 66, 39749, 457, 17396, 70669, 6517, 899, 622, 6399, 7573 #### [facility] [place] [address] Nuclear Officer: Bogdan Kyle MD Monocytes (Bld) [#/Vol] 0.513 10*3/uL Normal 200-950 [facility] Comment on above: Performed By: #### 8 66, 49473, 457, 24335, 76936, 6517, 899, 622, 6399, 7573 #### [facility] [place] [address] Nuclear Officer: Bogdan Kyle MD Monocytes/100 WBC (Bld) 9.0 % Normal [facility] Comment on above: Performed By: #### 8 66, 15145, 457, 14810, 90492, 6517, 899, 622, 6399, 7573 #### [facility] [place] [address] Nuclear Officer: Bogdan Kyle MD Neutrophils (Bld) [#/Vol] 4.446 10*3/uL Normal 7270-4974 [facility] Comment on above: Performed By: #### 8 66, 22261, 457, 95005, 12707, 6517, 899, 622, 6399, 7573 #### [facility] [place] [address] Nuclear Officer: Bogdan Kyle MD Neutrophils/100 WBC (Bld) 78 % Normal [facility] Comment on above: Performed By: #### 8 66, 40222, 457, 37791, 68618, 6517, 899, 622, 6399, 7573 #### [facility] [place] [address] Nuclear Officer: Bogdan Kyle MD Platelet mean volume (Bld) [Entitic vol] 11.2 fL Normal 7.5-12.5 [facility] Comment on above: Performed By: #### 8 66, 94531, 457, 34907, 41388, 6517, 899, 622, 6399, 7573 #### [facility] [place] [address] Nuclear Officer: Bogdan Kyle MD Platelets (Bld) [#/Vol] 196 10*3/uL Normal 140-400 [facility] Comment on above: Performed By: #### 8 66, 78079, 457, 24678, 62815, 6517, 899, 622, 6399, 7573 #### [facility] [place] [address] Nuclear Officer: Bogdan Kyle MD RBC (Bld) [#/Vol] 4.34 10*6/uL Normal 4.20-5.80 [facility] Comment on above: Performed By: #### 8 66, 01447, 457, 49638, 16081, 6517, 899, 622, 6399, 7573 #### [facility] [place] [address] Nuclear Officer: Bogdan Kyle MD WBC (Bld) [#/Vol] 5.7 10*3/uL Normal 3.8-10.8 [facility] Comment on above: Performed By: #### 8 66, 61223, 457, 31586, 47420, 6517, 899, 622, 6399, 7573 #### [facility] [place] [address] Nuclear Officer: Bogdan Kyle MD COMPREHENSIVE METABOLIC PANE L W/ANION GAPon 02-22-2025 Albumin [Mass/Vol] 4.3 g/dL Normal 3.6-5.1 [facility] Comment on above: Performed By: #### 8 66, 10739, 457, 04102, 96156, 6517, 899, 622, 6399, 7573 #### [facility] [place] [address] Nuclear Officer: Bogdan Kyle MD ALP [Catalytic activity/Vol] 62 U/L Normal 35-144 [facility] Comment on above: Performed By: #### 8 66, 95782, 457, 80089, 51161, 6517, 899, 622, 6399, 7573 #### [facility] [place] [address] Nuclear Officer: Bogdan Kyel MD ALT [Catalytic activity/Vol] 24 U/L Normal 9-46 [facility] Comment on above: Performed By: #### 8 66, 80620, 457, 53742, 28349, 6517, 899, 622, 6399, 7573 #### [facility] [place] [address] Nuclear Officer: Bogdan Kyle MD AST [Catalytic activity/Vol] 38 U/L High 10-35 [facility] Comment on above: Performed By: #### 8 66, 21237, 457, 31297, 05958, 6517, 899, 622, 6399, 7573 #### [facility] [place] [address] Nuclear Officer: Bogdan Kyle MD Bilirubin [Mass/Vol] 0.4 mg/dL Normal 0.2-1.2 [facility] Comment on above: Performed By: #### 8 66, 37480, 457, 81161, 84111, 6517, 899, 622, 6399, 7573 #### [facility] [place] [address] Nuclear Officer: Bogdan Kyle MD Calcium [Mass/Vol] 10.2 mg/dL Normal 8.6-10.3 [facility] Comment on above: Performed By: #### 8 66, 73110, 457, 67347, 36134, 6517, 899, 622, 6399, 7573 #### [facility] [place] [address] Nuclear Officer: Bogdan Kyle MD Chloride [Moles/Vol] 100 mmol/L Normal 98-110 [facility] Comment on above: Performed By: #### 8 66, 56344, 457, 66136, 68542, 6517, 899, 622, 6399, 7573 #### [facility] [place] [address] Nuclear Officer: Bogdan Kyle MD CO2 [Moles/Vol] 26 mmol/L Normal 20-32 [facility] Comment on above: Performed By: #### 8 66, 09823, 457, 97123, 67045, 6517, 899, 622, 6399, 7573 #### [facility] [place] [address] Nuclear Officer: Bogdan Kyle MD Creatinine [Mass/Vol] 1.62 mg/dL High 0.70-1.[address] [facility] Comment on above: Performed By: #### 8 66, 15975, 457, 78806, 39853, 6517, 899, 622, 6399, 7573 #### [facility] [place] [address] Nuclear Officer: Bogdan Kyle MD ELECTROLYTE BALANCE 13 mmol/L (calc) Normal 7-17 [facility] Comment on above: Performed By: #### 8 66, 75665, 457, 46644, 17644, 6517, 899, 622, 6399, 7573 #### [facility] [address], [address] [place] [address] Nuclear Officer: Bogdan Kyle MD GFR/1.73 sq M.predicted among non-blacks MDRD (S/P/Bld) [Vol rate/Area] 48 mL/min/{1.73_m2} Low > OR = 60 [facility] Comment on above: Performed By: #### 8 66, 39821, 457, 46741, 52137, 6517, 899, 622, 6399, 7573 #### [facility] [address], [address] [place] [address] Nuclear Officer: Bogdan Kyle MD Glucose [Mass/Vol] 227 mg/dL High 65-99 [facility] Comment on above: Result Comment: Fasting reference interval For someone without known diabetes, a glucose value >125 mg/dL indicates that they may have diabetes and this should be confirmed with a follow-up test. Performed By: #### 8 66, 89839, 457, 50766, 66832, 6517, 899, 622, 6399, 7573 #### [facility] [place] [address] Nuclear Officer: Bogadn Kyle MD Potassium [Moles/Vol] 5.1 mmol/L Normal 3.5-5.3 [facility] Comment on above: Performed By: #### 8 66, 64271, 457, 55020, 23917, 6517, 899, 622, 6399, 7573 #### [facility] [address], [address] [place] [address] Nuclear Officer: Bogdan Kyle MD Protein [Mass/Vol] 7.2 g/dL Normal 6.1-8.1 [facility] Comment on above: Performed By: #### 8 66, 19876, 457, 83570, 84055, 6517, 899, 622, 6399, 7573 #### [facility] [address], [address] [place] [address] Nuclear Officer: Bogdan Kyle MD Sodium [Moles/Vol] 139 mmol/L Normal 135-146 [facility] Comment on above: Performed By: #### 8 66, 35279, 457, 97087, 16916, 6517, 899, 622, 6399, 7573 #### [facility] [address], [address] [place] [address] Nuclear Officer: Bogdan Kyle MD Urea nitrogen [Mass/Vol] 42 mg/dL High 7-25 [facility] Comment on above: Performed By: #### 8 66, 35597, 457, 21877, 20464, 6517, 899, 622, 6399, 7573 #### [facility] [address], [address] [place] [address] Nuclear Officer: Bogdan Kyle MD FERRITINon 02-22-2025 Ferritin [Mass/Vol] 45 ng/mL Normal 24-380 [facility] Comment on above: Performed By: #### 7 600, 6399, 05322 #### [facility] [address], [address] [place] [address] Nuclear Officer: Bogdan Kyle MD HEMOGLOBIN A1c WITH eAGon eAG (mmol/L) 17.6 mmol/L Normal [facility] Comment on above: Performed By: #### 7 600, 6399, 75392 #### [facility] [place] [address] Nuclear Officer: Bogdan Kyle MD HbA1c (Bld) [Mass fraction] 12.7 % High <5.7 [facility] Comment on above: Result Comment: For someone without known diabetes, a hemoglobin A1c value of 6.5% or greater indicates that they may have diabetes and this should be confirmed with a follow-up test. For someone with known diabetes, a value <7% indicates that their diabetes is well controlled and a value greater than or equal to 7% indicates suboptimal control. A1c targets should be individualized based on duration of diabetes, age, comorbid conditions, and other considerations. Currently, no consensus exists regarding use of hemoglobin A1c for diagnosis of diabetes for children. Performed By: #### 7 600, 6399, 89876 #### [facility] [place] [address] Nuclear Officer: Bogdan Kyle MD Magnesium [Mass/Vol] 318 mg/dL Normal [facility] Comment on above: Performed By: #### 7 600, 6399, 45411 #### [facility] [place] [address] Nuclear Officer: Bogdan Kyle MD IRON AND TOTAL IRON BINDING CAPACITYon 02-22-2025 % SATURATION 17 % (calc) Low 20-48 [facility] Comment on above: Performed By: #### 8 66, 83974, 457, 37326, 16454, 6517, 899, 622, 6399, 7573 #### [facility] [place] [address] Nuclear Officer: Bogdan Kyle MD IRON BINDING CAPACITY 464 mcg/dL (calc) High 250-425 [facility] Comment on above: Performed By: #### 8 66, 65702, 457, 87612, 24041, 6517, 899, 622, 6399, 7573 #### [facility] [place] [address] Nuclear Officer: Bogdan Kyle MD IRON, TOTAL 77 mcg/dL Normal 50-180 [facility] Comment on above: Performed By: #### 8 66, 86651, 457, 98074, 59290, 6517, 899, 622, 6399, 7573 #### [facility] [place] [address] Nuclear Officer: Bogdan Kyle MD MAGNESIUMon 02-22-2025 Magnesium [Mass/Vol] 2.3 mg/dL Normal 1.5-2.5 [facility] Comment on above: Performed By: #### 8 66, 30744, 457, 36150, 54746, 6517, 899, 622, 6399, 7573 #### [facility] [place] [address] Nuclear Officer: Bogdan Kyle MD PSA, TOTAL, MONITORINGon PSA, TOTAL, MONITORING 0.07 ng/mL Normal < OR = 4.00 [facility] Comment on above: Result Comment: The total PSA value from this assay system is standardized against the WHO standard. The test result will be approximately 20% lower when compared to the equimolar-standardized total PSA ([place]). Comparison of serial PSA results should be interpreted with this fact in mind. This test was performed using the Siemens chemiluminescent method. Values obtained from different assay methods cannot be used interchangeably. PSA levels, regardless of value, should not be interpreted as absolute evidence of the presence or absence of disease. Performed By: #### 7 600, 6399, 39723 #### [facility] [place] [address] Nuclear Officer: Bogdan Kyle MD T4, FREEon 02-22-2025 Free T4 [Mass/Vol] 1.4 ng/dL Normal 0.8-1.8 [facility] Comment on above: Performed By: #### 7 600, 6399, 50951 #### [facility] [place] [address] Nuclear Officer: Bogdan Kyle MD TSHon 02-22-2025 TSH Qn 2.00 m[IU]/L Normal 0.40-4.50 [facility] Comment on above: Performed By: #### 7 600, 6399, 65305 #### [facility] [place] [address] Nuclear Officer: Bogdan Kyle MD VITAMIN D,25-OH,TOTAL,IAon 0 02-22-2025 VITAMIN D,25-OH,TOTAL,IA 16 ng/mL Low 30-100 [facility] Comment on above: Result Comment: Edna min D Status 25-OH Vitamin D: Deficiency: <20 ng/mL Insufficiency: 20 - 29 ng/mL Optimal: > or = 30 ng/mL For 25-OH Vitamin D testing on patients on D2-supplementation and patients for whom quantitation of D2 and D3 fractions is required, the [employer]D() 25-OH VIT D, (D2,D3), LC/MS/MS is recommended: order code 54939 (patients >2yrs). See Note 1 Note 1 For additional information, please refer to http://education.[employer]/faq/JGF179 (This link is being provided for informational/ educational purposes only.) Performed By: #### 7 600, 9901, 25706 #### [facility] [place] [address] [facility], [address] [place] [address] Nuclear Officer: Bogdan Kyle MD XR CERVICAL SPINE 2-3 VIEWSo 02-21-2025 XR CERVICAL SPINE 2-3 VIEWS Interpreted By: Sebastian Larios, STUDY: XR CERVICAL SPINE 2-3 VIEWS; ; 02/21/2025 12:35 pm INDICATION: Signs/Symptoms:cervica lgia. ,M54.2 Cervicalgia COMPARISON: None. ACCESSION NUMBER(S): [id number] ORDERING CLINICIAN: BHAKTI CHAMBERS FINDINGS: CERVICAL SPINE-AP, LATERAL AND SWIMMER'S VIEWS Mild degenerative disc disease changes at C5-6 with slight narrowing of the disc and anterior osteophyte formation. Visualization is poor secondary to the C5-6 disc narrowing obscured by the shoulders on the lateral view. The C7-T1 alignment is preserved. IMPRESSION: Mild degenerative changes cervical spine more prominent at C5-6. MACRO: None Signed by: Sebastian Larios 02/21/2025 3:04 PM Dictation workstation: [id number] [facility] XR Cervical spine 2 or 3 Vie wson 02-21-2025 Mild degenerative changes cervical spine more prominent at C5-6. MACRO: None Signed by: Sebastian Larios 02/21/2025 3:04 PM Dictation workstation: [id number] [facility] Interpreted By: Sebastian Larios, STUDY: XR CERVICAL SPINE 2-3 VIEWS; ; 02/21/2025 12:35 pm INDICATION: Signs/Symptoms:cervica lgia. ,M54.2 Cervicalgia COMPARISON: None. ACCESSION NUMBER(S): [id number] ORDERING CLINICIAN: BHAKTI CHAMBERS FINDINGS: CERVICAL SPINE-AP, LATERAL AND SWIMMER'S VIEWS Mild degenerative disc disease changes at C5-6 with slight narrowing of the disc and anterior osteophyte formation. Visualization is poor secondary to the C5-6 disc narrowing obscured by the shoulders on the lateral view. The C7-T1 alignment is preserved. [facility]AL Sebastian Larios MD - 02/21/2025 Interpreted By: Sebastian Larios, STUDY: XR CERVICAL SPINE 2-3 VIEWS; ; 02/21/2025 12:35 pm INDICATION: Signs/Symptoms:cervica lgia. ,M54.2 Cervicalgia COMPARISON: None. ACCESSION NUMBER(S): [id number] ORDERING CLINICIAN: BHAKTI CHAMBERS FINDINGS: CERVICAL SPINE-AP, LATERAL AND SWIMMER'S VIEWS Mild degenerative disc disease changes at C5-6 with slight narrowing of the disc and anterior osteophyte formation. Visualization is poor secondary to the C5-6 disc narrowing obscured by the shoulders on the lateral view. The C7-T1 alignment is preserved. IMPRESSION: Mild degenerative changes cervical spine more prominent at C5-6. MACRO: None Signed by: Sebastian Larios 02/21/2025 3:04 PM Dictation workstation: [id number] [facility] Work Phone: Radiology Study observation (narrative) [facility] Work Phone: XR Cervical spine 2 or 3 Vie wsOrdered By: Sebastian Larios on 02-21-2025 [facility] Work Phone: Apply dressingon 02-19-2025 Elizabeth applied Betadi ne wet-to-dry to the open toes, 4 x 4's, Kerlix and Tubigrip Frequency: Daily [facility] Apply dressingOrdered By: Mena Magaña on 02-19-2025 [facility] Apply dressingon 02-05-2025 Beatriz applied dressing [facility] Apply dressingOrdered By: St pedro Tate on 02-05-2025 [facility] Apply dressingon 01-29-2025 Kb to all open wounds, 4 x 4's, Kerlix and gauze interwoven between toes, Kerlix and Zechariah bandage Frequency: Patient is to continue applying his dressings using Betadine once daily starting on Wednesday. Follow up: 1 week(s) [facility] Apply dressingon 01-15-2025 Applied bilateral dressings [facility] Apply dressingOrdered By: Liv Gotti on 01-15-2025 [facility] Aerobic Cultureon 01-11-2025 Bacteria identified Aer cx Nom (Unsp spec) SEE NOTE [facility] Comment on above: CULTURE, AEROBIC BACTERIA Micro Number: [id number] Test Status: Final Specimen Source: Left one toe Specimen Quality: Adequate Result: Growth of skin chalino (note: Growth does not include S. aureus, beta-hemolytic Streptococci or P. aeruginosa). Bacteria identified Aer cx N om (Unsp spec)on 01-11-2025 [facility] CULTURE, AEROBIC BACTERIAon 01-11-2025 CULTURE, AEROBIC BACTERIA SEE NOTE Normal [facility] Comment on above: Result Comment: CULTURE, AEROBIC BACTERIA Micro Number: [id number] Test Status: Final Specimen Source: Left one toe Specimen Quality: Adequate Result: Growth of skin chalino (note: Growth does not include S. aureus, beta-hemolytic Streptococci or P. aeruginosa). Performed By: #### 7 600, 9599, 27938 #### [facility] [address] [facility], [address] [place] [address] Nuclear Officer: Bogdan Kyle MD ECG 12 Leadon 01-11-2025 Sinus rhythm with 1s t degree AV block with premature atrial complex in a pattern with bigeminy Prior inferior leads - possible old infarct [facility] Work Phone: [facility] Work Phone: XR FOOT LEFT 3+ VIEWS (STAND GLORIA)on 01-08-2025 XR FOOT LEFT 3+ VIEWS (STANDARD) History of fifth metatarsal base with 1 fractured screw. The fracture site however does appear to be well trabeculated and healed at this point. Additionally some midfoot spurring present. Dictated by: CRUZITO ARCHER on WedJan 12, 2025 4:30:33 PM EDT Transcribed by: CRUZITO ARCHER on WedJan 12, 2025 4:30:33 PM EDT Finalized by: CRUZITO ARCHER on WedJan 12, 2025 4:30:33 PM EDT Normal [facility] Comment on above: Order Comment: Injur y/Trauma or Illness?:Illness/OtherHow long have you had these symptoms (acute/chronic)?:ChronicReason for exam?:chronic woundHistory of cancer?:uSurgeries, chemotherapy, or radiation?:YRIGHT FOOT RECONSTRUCTION WITH APPLICATION OF CIRCULAR STATIC EXTERNAL FIXATIONType of Exam?:InitialAdditional signs and symptoms?:no Apply dressingon 12-25-2024 Medihoney to left great toe and gauze Zechariah bandage 4 x 2 from toes to knee Change Daily Follow up 2 week(s) [facility] Apply dressingOrdered By: Mena Magaña on 12-25-2024 [facility] Apply dressingon 12-04-2024 Applied dressings [facility] Apply dressingOrdered By: Liv Gotti on 12-04-2024 [facility] CULTURE, AEROBIC BACTERIAon 11-27-2024 CULTURE, AEROBIC BACTERIA SEE NOTE Normal [facility] Comment on above: Result Comment: CULTURE, AEROBIC BACTERIA Micro Number: [id number] Test Status: Final Specimen Source: R leg Specimen Quality: Adequate Result: A mix of organisms of questionable significance was recovered on culture and not further identified. (Note: Growth did not detect the presence of S.aureus, beta-hemolytic Streptococci or P.aeruginosa). Performed By: #### 4 550 #### [facility] [address], [address] [place] [id number] Nuclear Officer: Bogdan Kyle MD Apply dressingon 11-20-2024 Obtained culture of the wound on the right leg, wash with soap and gauze, dry thoroughly, apply Betadine soaked Xeroform wet-to-dry, 4 x 4, Kerlix and Zechariah bandage. On the left leg, wrap with Kerlix and Zechariah bandage Change daily [facility] Apply dressingOrdered By: Mena Magaña on 11-20-2024 [facility] No Panel Informationon 11-13 Ethan applied dressings and profore. [facility] No Panel InformationOrdered By: Silvia Gotti on 11-13-2024 [facility] CBC (INCLUDES DIFF/PLT)on Basophils (Bld) [#/Vol] 0.031 10*3/uL Normal 0-200 [facility] Comment on above: Performed By: #### 7 600, 63, 45425 #### [facility] [place] [address] Nuclear Officer: Bogdan Kyle MD Basophils/100 WBC (Bld) 0.6 % Normal [facility] Comment on above: Performed By: #### 7 600, 63, 87479 #### [facility] [place] [address] Nuclear Officer: Bogdan Kyle MD Eosinophils (Bld) [#/Vol] 0.161 10*3/uL Normal 15-500 [facility] Comment on above: Performed By: #### 7 600, 63, 23351 #### [facility] [place] [address] Nuclear Officer: Bogdan Kyle MD Eosinophils/100 WBC (Bld) 3.1 % Normal [facility] Comment on above: Performed By: #### 7 600, 6398, 70988 #### [facility] [place] [address] Nuclear Officer: Bogdan Kyle MD Erythrocyte distribution width (RBC) [Ratio] 14.5 % Normal 11.0-15.0 [facility] Comment on above: Performed By: #### 7 600, 76, 83437 #### [facility] [place] [address] Nuclear Officer: Bogdan Kyle MD Hematocrit (Bld) [Volume fraction] 38.0 % Low 38.5-50.0 [facility] Comment on above: Performed By: #### 7 600, 63, 06468 #### [facility] [place] [address] Nuclear Officer: Bogdan Kyle MD Hemoglobin (Bld) [Mass/Vol] 11.8 g/dL Low 13.2-17.1 [facility] Comment on above: Performed By: #### 7 600, 63, 35278 #### [facility] of [address], [address] [place] [address] Nuclear Officer: Bogdan Kyle MD Lymphocytes (Bld) [#/Vol] 0.53 10*3/uL Low 850-3900 [facility] Comment on above: Performed By: #### 7 600, 63, 97646 #### [facility] [address], [address] [place] [address] Nuclear Officer: Bogdan Kyle MD Lymphocytes/100 WBC (Bld) 10.2 % Normal [facility] Comment on above: Performed By: #### 7 600, 63, 46268 #### [facility] [place] [address] Nuclear Officer: Bogdan Kyle MD MCH (RBC) [Entitic mass] 27.6 pg Normal 27.0-33.0 [facility] Comment on above: Performed By: #### 7 600, 01, 92305 #### [facility] [place] [address] Nuclear Officer: Bogdan Kyle MD MCHC (RBC) [Mass/Vol] 31.1 g/dL Low 32.0-36.[address] [facility] Comment on above: Result Comment: For adults, a slight decrease in the calculated MCHC value (in the range of 30 to 32 g/dL) is most likely not clinically significant; however, it should be interpreted with caution in correlation with other red cell parameters and the patient's clinical condition. Performed By: #### 7 600, 25, 94877 #### [facility] [place] [address] Nuclear Officer: Bogdan Kyle MD MCV (RBC) [Entitic vol] 89.0 fL Normal 80.0-100.0 [facility] Comment on above: Performed By: #### 7 600, 63, 85851 #### [facility] [place] [address] Nuclear Officer: Bogdan Kyle MD Monocytes (Bld) [#/Vol] 0.452 10*3/uL Normal 200-950 [facility] Comment on above: Performed By: #### 7 600, 63, 22345 #### [facility] [place] [address] Nuclear Officer: Bogdan Kyle MD Monocytes/100 WBC (Bld) 8.7 % Normal [facility] Comment on above: Performed By: #### 7 600, 63, 63717 #### [facility] [place] [address] Nuclear Officer: Bogdan Kyle MD Neutrophils (Bld) [#/Vol] 4.025 10*3/uL Normal 0401-9419 [facility] Comment on above: Performed By: #### 7 600, 63, 79030 #### [facility] [place] [address] Nuclear Officer: Bogdan Kyle MD Neutrophils/100 WBC (Bld) 77.4 % Normal [facility] Comment on above: Performed By: #### 7 600, 63, 24676 #### [facility] [place] [address] Nuclear Officer: Bogdan Kyle MD Platelet mean volume (Bld) [Entitic vol] 12.3 fL Normal 7.5-12.5 [facility] Comment on above: Performed By: #### 7 600, 63, 41566 #### [facility] [place] [address] Nuclear Officer: Bogdan Kyle MD Platelets (Bld) [#/Vol] 200 10*3/uL Normal 140-400 [facility] Comment on above: Performed By: #### 7 600, 63, 84551 #### [facility] [place] [address] Nuclear Officer: Bogdan Kyle MD RBC (Bld) [#/Vol] 4.27 10*6/uL Normal 4.20-5.80 [facility] Comment on above: Performed By: #### 7 600, 6399, 07676 #### [facility] [place] [address] Nuclear Officer: Bogdan Kyle MD WBC (Bld) [#/Vol] 5.2 10*3/uL Normal 3.8-10.8 [facility] Comment on above: Performed By: #### 7 600, 63, 55592 #### [facility] [place] [address] Nuclear Officer: Bogdan Kyle MD COMPREHENSIVE METABOLIC PANE L W/ANION GAPon 11-07-2024 Albumin [Mass/Vol] 4.0 g/dL Normal 3.6-5.1 [facility] Comment on above: Performed By: #### 7 600, 63, 49109 #### [facility] [place] [address] Nuclear Officer: Bogdan Kyle MD ALP [Catalytic activity/Vol] 61 U/L Normal 35-144 [facility] Comment on above: Performed By: #### 7 600, 63, 22092 #### [facility] [place] [address] Nuclear Officer: Bogdan Kyle MD ALT [Catalytic activity/Vol] 18 U/L Normal 9-46 [facility] Comment on above: Performed By: #### 7 600, 75, 71092 #### [facility] [place] [address] Nuclear Officer: Bogdan Kyle MD AST [Catalytic activity/Vol] 20 U/L Normal 10-35 [facility] Comment on above: Performed By: #### 7 600, 63, 50799 #### [facility] [place] [address] Nuclear Officer: Bogdan Kyle MD Bilirubin [Mass/Vol] 0.3 mg/dL Normal 0.2-1.2 [facility] Comment on above: Performed By: #### 7 600, 63, 57082 #### [facility] [address], [address] [place] [address] Nuclear Officer: Bogdan Kyle MD Calcium [Mass/Vol] 9.8 mg/dL Normal 8.6-10.3 [facility] Comment on above: Performed By: #### 7 600, 63, 10452 #### [facility] [place] [address] Nuclear Officer: Bogdan Kyle MD Chloride [Moles/Vol] 100 mmol/L Normal 98-110 [facility] Comment on above: Performed By: #### 7 600, 6398, 91672 #### [facility] [place] [address] Nuclear Officer: Bogdan Kyle MD CO2 [Moles/Vol] 27 mmol/L Normal 20-32 [facility] Comment on above: Performed By: #### 7 Luiz, 38, 04222 #### [facility] [place] [address] Nuclear Officer: Bogdan Kyle MD Creatinine [Mass/Vol] 1.45 mg/dL High 0.70-1.[address] [facility] Comment on above: Performed By: #### 7 600, 38, 83791 #### [facility] [place] [address] Nuclear Officer: Bogdan Kyle MD ELECTROLYTE BALANCE 12 mmol/L (calc) Normal 7-17 [facility] Comment on above: Performed By: #### 7 600, 15, 23253 #### [facility] [place] [address] Nuclear Officer: Bogdan Kyle MD GFR/1.73 sq M.predicted among non-blacks MDRD (S/P/Bld) [Vol rate/Area] 54 mL/min/{1.73_m2} Low > OR = 60 [facility] Comment on above: Performed By: #### 7 600, 37, 10787 #### [facility] [place] [address] Nuclear Officer: Bogdan Kyle MD Glucose [Mass/Vol] 366 mg/dL High 65-99 [facility] Comment on above: Result Comment: Fasting reference interval For someone without known diabetes, a glucose value >125 mg/dL indicates that they may have diabetes and this should be confirmed with a follow-up test. Performed By: #### 7 600, 6399, 70954 #### [facility] [place] [address] Nuclear Officer: Bogdan Kyle MD Potassium [Moles/Vol] 5.7 mmol/L High 3.5-5.[address] [facility] Comment on above: Performed By: #### 7 600, 63, 63643 #### [facility] [place] [address] Nuclear Officer: Bogdan Kyle MD Protein [Mass/Vol] 6.7 g/dL Normal 6.1-8.1 [facility] Comment on above: Performed By: #### 7 600, 63, 15170 #### [facility] [place] [address] Nuclear Officer: Bogdan Kyle MD Sodium [Moles/Vol] 139 mmol/L Normal 135-146 [facility] Comment on above: Performed By: #### 7 600, 63, 81477 #### [facility] [place] [address] Nuclear Officer: Bogdan Kyle MD Urea nitrogen [Mass/Vol] 50 mg/dL High 7-25 [facility] Comment on above: Performed By: #### 7 600, 63, 81731 #### [facility] [place] [address] Nuclear Officer: Bogdan Kyle MD HEMOGLOBIN A1c WITH eAGon eAG (mmol/L) 17.1 mmol/L Normal [facility] Comment on above: Performed By: #### 7 600, 63, 06274 #### [facility] [place] [address] Nuclear Officer: Bogdan Kyle MD HEMOGLOBIN A1c 12.4 % of total Hgb High <5.7 [facility] Comment on above: Result Comment: For someone without known diabetes, a hemoglobin A1c value of 6.5% or greater indicates that they may have diabetes and this should be confirmed with a follow-up test. For someone with known diabetes, a value <7% indicates that their diabetes is well controlled and a value greater than or equal to 7% indicates suboptimal control. A1c targets should be individualized based on duration of diabetes, age, comorbid conditions, and other considerations. Currently, no consensus exists regarding use of hemoglobin A1c for diagnosis of diabetes for children. Performed By: #### 7 600, 1299, 89049 #### [facility] [place] [address] Nuclear Officer: Bogdan Kyle MD Magnesium [Mass/Vol] 309 mg/dL Normal [facility] Comment on above: Performed By: #### 7 600, 4399, 02911 #### [facility] [place] [address] Nuclear Officer: Bogdan Kyle MD LIPID PANEL, STANDARD -0 Cholesterol [Mass/Vol] 213 mg/dL High <200 [facility] Comment on above: Order Comment: FASTI NG:YES FASTING: YES Performed By: #### 7 600, 8110, 32185 #### [facility] [place] [address] Nuclear Officer: Bogdan Kyle MD Cholesterol in HDL [Mass/Vol] 35 mg/dL Low > OR = 40 [facility] Comment on above: Order Comment: FASTI NG:YES FASTING: YES Performed By: #### 7 600, 6332, 63168 #### [facility] [place] [address] Nuclear Officer: Bogdan Kyle MD Cholesterol.total/Cho lesterol in HDL [Mass ratio] 6.1 {ratio} High <5.0 [facility] Comment on above: Order Comment: FASTI NG:YES FASTING: YES Performed By: #### 7 600, 9299, 77878 #### [facility] [address], [address] [place] [address] Nuclear Officer: Bogdan Kyle MD LDL-CHOLESTEROL Normal [facility] Comment on above: Order Comment: FASTI NG:YES FASTING: YES Result Comment: LDL cholesterol not calculated. Triglyceride levels greater than 400 mg/dL invalidate calculated LDL results. Reference range: <100 Desirable range <100 mg/dL for primary prevention; <70 mg/dL for patients with CHD or diabetic patients with > or = 2 CHD risk factors. LDL-C is now calculated using the Yariel calculation, which is a validated novel method providing better accuracy than the Friedewald equation in the estimation of LDL-C. Octavio MARTINEZ et al. ANNA. 2013;310(19): 8235-1400 (http://education.Kohort.IronPlanet/faq/MHC457) Performed By: #### 7 600, 9199, 79324 #### [facility] [address], [address] [place] [address] Nuclear Officer: Bogdan Kyle MD NON HDL CHOLESTEROL 178 mg/dL (calc) High <130 [facility] Comment on above: Order Comment: FASTI NG:YES FASTING: YES Result Comment: For patients with diabetes plus 1 major ASCVD risk factor, treating to a non-HDL-C goal of <100 mg/dL (LDL-C of <70 mg/dL) is considered a therapeutic option. Performed By: #### 7 600, 3499, 03149 #### [facility] [address], [address] [place], [place] [id number] Nuclear Officer: Bogdan Kyle MD Triglyceride [Mass/Vol] 925 mg/dL High <150 [facility] Comment on above: Order Comment: FASTI NG:YES FASTING: YES Result Comment: If a non-fasting specimen was collected, consider repeat triglyceride testing on a fasting specimen if clinically indicated. Nickolas et al. J. of Clin. Lipidol. 2015;9:129-169. There is increased risk of pancreatitis when the triglyceride concentration is very high (> or = 500 mg/dL, especially if > or = 1000 mg/dL). Nickolas et al. J. of Clin. Lipidol. 2015;9:129-169. Performed By: #### 7 735, 8315, 38683 #### [facility] [address], [address] [place] [address] Nuclear Officer: Bogdan Kyle MD Apply dressingon 11-06-2024 Applied unna boots [facility] alth Apply dressingOrdered By: St pedro Tate on 11-06-2024 [facility] XR FOOT LEFT 3+ VIEWS (STAND GLORIA)on 11-06-2024 XR FOOT LEFT 3+ VIEWS (STANDARD) No acute fractures or dislocations noted. 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 Dictated by: ALENA MORA on Sat Nov 11, 2024 10:49:54 PM EST Transcribed by: ALENA MORA on Sat Nov 11, 2024 10:49:54 PM EST Finalized by: ALENA MORA on Sat Nov 11, 2024 10:49:54 PM EST Normal [facility] Comment on above: Order Comment: Injur y/Trauma or Illness?:Illness/OtherHow long have you had these symptoms (acute/chronic)?:ChronicReason for exam?:ulcerHistory of cancer?:uSurgeries, chemotherapy, or radiation?:YRIGHT FOOT RECONSTRUCTION WITH APPLICATION OF CIRCULAR STATIC EXTERNAL FIXATIONType of Exam?:Subsequent/Follow-upAdditional signs and symptoms?:history of charcot Wound Debridementon 10-06-19 25 Alena Mora DPM 10/06/2024 2:16 PM Wound Debridement Performed by: Alena Mora DPM Authorized by: Alena Mora DPM Consent Consent obtained? verbal Consent given by: patient Risks discussed? procedural risks discussed Immediately prior to the procedure a time out was called and the performing provider verified the correct patient, procedure, equipment, support service tech, and site/side marked as required. Debridement Details Performed by: physician Debridement type: surgical Level of debridement: subcutaneous tissue Post-debridement measurements Length (cm): 1 Width (cm): 1.2 Depth (cm): 0.2 Percent debrided: 100% Surface Area (cm^2): 1.2 Area Debrided (cm^2): 1.2 Volume (cm^3): 0.24 Tissue and other material debrided: subcutaneous tissue Devitalized tissue debrided: biofilm, callus, fibrin and slough Instrument(s) utilized: curette Bleeding: small Hemostasis obtained with: pressure Response to treatment: procedure was tolerated well [facility] Wound Debridementon 08-25-20 24 Torie Avendano CN P 08/25/2024 10:46 AM Wound Debridement Performed by: Torie Avendano CNP Authorized by: Torie Avendano CNP Consent Consent obtained? verbal Consent given by: patient Risks discussed? procedural risks discussed Time out called at 08/25/2024 10:03 AM Immediately prior to the procedure a time out was called and the performing provider verified the correct patient, procedure, equipment, support service tech, and site/side marked as required. Debridement Details Performed by: MEDICAL SURGICAL TECH Debridement type: surgical Level of debridement: subcutaneous tissue Pain control: none Post-debridement measurements Length (cm): 1 Width (cm): 0.2 Depth (cm): 0.1 Percent debrided: 100% Surface Area (cm^2): 0.2 Area Debrided (cm^2): 0.2 Volume (cm^3): 0.02 Tissue and other material debrided: subcutaneous tissue Devitalized tissue debrided: biofilm, fibrin and slough Instrument(s) utilized: curette Bleeding: none Hemostasis obtained with: not applicable Procedural pain (0-10): insensate Post-procedural pain: insensate Response to treatment: procedure was tolerated well [facility] No Panel Informationon 08-18 Alena Mora DPM 08/18/2024 11:31 PM Wound Debridement Performed by: Alena Mora DPM Authorized by: Alena Mora DPM Consent Consent obtained? verbal Consent given by: patient Risks discussed? procedural risks discussed Immediately prior to the procedure a time out was called and the performing provider verified the correct patient, procedure, equipment, support service tech, and site/side marked as required. Debridement Details Performed by: physician Debridement type: surgical Level of debridement: subcutaneous tissue Post-debridement measurements Length (cm): 1 Width (cm): 0.2 Depth (cm): 0.2 Percent debrided: 100% Surface Area (cm^2): 0.2 Area Debrided (cm^2): 0.2 Volume (cm^3): 0.04 Tissue and other material debrided: subcutaneous tissue Devitalized tissue debrided: biofilm, fibrin and slough Instrument(s) utilized: curette Bleeding: small Hemostasis obtained with: pressure Response to treatment: procedure was tolerated well [facility] Wound Debridementon 08-18-20 Alena Mora DPM 08/22/2024 3:25 AM Wound Debridement Performed by: Alena Mora DPM Authorized by: Alena Mora DPM Consent Consent obtained? verbal Consent given by: patient Risks discussed? procedural risks discussed Immediately prior to the procedure a time out was called and the performing provider verified the correct patient, procedure, equipment, support service tech, and site/side marked as required. Debridement Details Performed by: physician Debridement type: surgical Level of debridement: subcutaneous tissue Post-debridement measurements Length (cm): 1 Width (cm): 0.2 Depth (cm): 0.2 Percent debrided: 100% Surface Area (cm^2): 0.2 Area Debrided (cm^2): 0.2 Volume (cm^3): 0.04 Tissue and other material debrided: subcutaneous tissue Devitalized tissue debrided: biofilm, fibrin and slough Instrument(s) utilized: curette Bleeding: small Hemostasis obtained with: pressure Response to treatment: procedure was tolerated well [facility] Debridementon 08-11-2024 Alena Mora DPM 08/11/2024 1:03 PM Debridement Wound 06/29/24 1 Surgical Wound Second Toe Dorsal;Left Wound 07/14/24 Foot Left;Anterior Performed by: Alena Mora DPM Authorized by: Alena Mora DPM Consent Consent obtained? verbal Consent given by: patient Risks discussed? procedural risks discussed Immediately prior to the procedure a time out was called and the performing provider verified the correct patient, procedure, equipment, support service tech, and site/side marked as required. Debridement Details Performed by: physician Debridement type: surgical Level of debridement: subcutaneous tissue Post-debridement measurements Length (cm): 1 Width (cm): 1.5 Depth (cm): 0.2 Percent debrided: 100% Surface Area (cm^2): 1.5 Area Debrided (cm^2): 1.5 Volume (cm^3): 0.3 Tissue and other material debrided: subcutaneous tissue Devitalized tissue debrided: biofilm, fibrin and slough Instrument(s) utilized: curette Bleeding: small Hemostasis obtained with: pressure Response to treatment: procedure was tolerated well [facility] Debridement Foot Left;Anteri oron 08-04-2024 Alena Mora DPM 08/04/2024 1:09 PM Debridement Foot Left;Anterior Wound 07/14/24 Foot Left;Anterior Performed by: Alena Mora DPM Authorized by: Alena Mora DPM Consent Consent obtained? verbal Consent given by: patient Risks discussed? procedural risks discussed Time out called at 08/04/2024 12:39 PM Immediately prior to the procedure a time out was called and the performing provider verified the correct patient, procedure, equipment, support service tech, and site/side marked as required. Debridement Details Performed by: physician Debridement type: surgical Level of debridement: subcutaneous tissue Pre-debridement measurements Length (cm): 0.7 Width (cm): 1 Depth (cm): 0.1 Surface Area (cm^2): 0.7 Post-debridement measurements Length (cm): 0.8 Width (cm): 1.2 Depth (cm): 0.2 Percent debrided: 100% Surface Area (cm^2): 0.96 Area Debrided (cm^2): 0.96 Volume (cm^3): 0.19 Tissue and other material debrided: subcutaneous tissue Devitalized tissue debrided: biofilm, fibrin and slough Instrument(s) utilized: curette Bleeding: small Hemostasis obtained with: pressure Response to treatment: procedure was tolerated well [facility] Multi-Layer Compression Dres raad 08-04-2024 Tanya Justice RN 08/04/2024 1:09 PM Multi-layer Compression Wrap Procedure Performed for: BILAT LEGS FOR EDEMA CONTROL Performed by:: Clinician MIKAELA Procedural Pain: 0 Bandage Type: Compression Compression Layers: Multi-layer Compression Product Type: Profore Regular Dressing Applied: No Extremity Location: Below Knee [facility] WOUND AEROBIC CULTUREon WOUND AEROBIC CULTURE AEROBIC CULTURE Moderate Growth Normal Skin Chalino GRAM STAIN RESULT Many RBC Few WBC Few Gram Positive Cocci Few Gram Positive Bacilli Normal [facility] Comment on above: Performed By: #### 4 6932 #### [facility] [address] [place], [place] [address] Suraj Gamez M.D. [id number] Debridementon 07-28-2024 Alena Mora DPM 07/28/2024 2:34 PM Debridement Wound 07/14/24 Foot Left;Anterior Wound 06/29/24 1 Surgical Wound Second Toe Dorsal;Left Performed by: Alena Mora DPM Authorized by: Alena Mora DPM Consent Consent obtained? verbal Consent given by: patient Risks discussed? procedural risks discussed Time out called at 07/28/2024 11:38 AM Immediately prior to the procedure a time out was called and the performing provider verified the correct patient, procedure, equipment, support service tech, and site/side marked as required. Debridement Details Performed by: physician Debridement type: surgical Level of debridement: subcutaneous tissue Post-debridement measurements Length (cm): 1.5 Width (cm): 1.5 Depth (cm): 0.2 Percent debrided: 100% Surface Area (cm^2): 2.25 Area Debrided (cm^2): 2.25 Volume (cm^3): 0.45 Tissue and other material debrided: subcutaneous tissue Devitalized tissue debrided: biofilm, fibrin and slough Instrument(s) utilized: curette Bleeding: small Hemostasis obtained with: pressure Response to treatment: procedure was tolerated well [facility] Multi-Layer Compression Dres singyanet 07-14-2024 Tanya Justice RN 07/14/2024 10:38 PM Multi-layer Compression Wrap Procedure Performed for: BILAT LEGS FOR EDEMA CONTROL Performed by:: Clinician MIKAELA Procedural Pain: 0 Bandage Type: Compression Compression Layers: Multi-layer Compression Product Type: Profore Regular Dressing Applied: No Extremity Location: Below Knee [facility] metabolic 2000 panelon 07-10-2024 Albumin BCP dye [Mass/Vol] 3.8 g/dL Normal 3.4-5.0 [facility] Comment on above: Performed By: #### 2 4323-8 #### GALINA GARCIAS ([id number]) [facility] ([facility]) [address] [place] [address] ALP [Catalytic activity/Vol] 61 U/L Normal 33-136 [facility] Comment on above: Performed By: #### 2 432-8 #### GALINA GARCIAS ([id number]) [facility] ([facility]) [address] [place] [address] ALT With P-5'-P [Catalytic activity/Vol] 19 U/L Normal 10-52 [facility] Comment on above: Result Comment: Monie ents treated with Sulfasalazine may generate falsely decreased results for ALT. Performed By: #### 2 4323-8 #### GALINA GARCIAS ([id number]) [facility] ([facility]) [address] [place] [address] Anion gap [Moles/Vol] 9 mmol/L Low 10-20 [facility] Comment on above: Performed By: #### 2 4323-8 #### GALINA GARCIAS ([id number]) [facility] ([facility]) [address] [place] [address] AST With P-5'-P [Catalytic activity/Vol] 17 U/L Normal 9-39 [facility] Comment on above: Performed By: #### 2 4323-8 #### GALINA GARCIAS ([id number]) [facility] ([facility]) [address] [place] [address] Bilirubin [Mass/Vol] 0.2 mg/dL Normal 0.0-1.2 [facility] Comment on above: Performed By: #### 2 4323-8 #### GALINA GARCIAS ([id number]) [facility] ([facility]) [address] [place] [address] Calcium [Mass/Vol] 9.5 mg/dL Normal 8.6-10.3 [facility] Comment on above: Performed By: #### 2 4323-8 #### GALINA GARCIAS ([id number]) [facility] ([facility]) [facility] [place] [address] Chloride [Moles/Vol] 103 mmol/L Normal 98-107 [facility] Comment on above: Performed By: #### 2 4323-8 #### GALINA GARCIAS ([id number]) [facility] ([facility]) [facility] [place] [address] CO2 [Moles/Vol] 34 mmol/L High 21-32 [facility] Comment on above: Performed By: #### 2 4323-8 #### GALINA GARCIAS ([id number]) [facility] ([facility]) [address] [place] [address] Creatinine [Mass/Vol] 1.31 mg/dL High 0.50-1.30 [facility] Comment on above: Performed By: #### 2 4323-8 #### GALINA GARCIAS ([id number]) [facility] ([facility]) [address] [place] [address] Glomerular filtration rate/1.73 sq M.predicted 62 mL/min/1.73m*2 Normal >60 [facility] Comment on above: Result Comment: Calc ulations of estimated GFR are performed using the 2020 CKD-EPI Study Refit equation without the race variable for the IDMS-Traceable creatinine methods. https://jasn.asnjournals.org/content/early//ASN.338001 8950 Performed By: #### 2 4323-8 #### GALINA GARCIAS ([id number]) [facility] ([facility]) [address] [place] [address] Glucose [Mass/Vol] 247 mg/dL High 74-99 [facility] Comment on above: Performed By: #### 2 4323-8 #### GALINA GARCIAS ([id number]) [facility] ([facility]) [address] [place] [address] Potassium [Moles/Vol] 4.7 mmol/L Normal 3.5-5.3 [facility] Comment on above: Performed By: #### 2 4323-8 #### GALINA GARCIAS ([id number]) [facility] ([facility]) [address] [place] [address] Protein [Mass/Vol] 5.9 g/dL Low 6.4-8.2 [facility] Comment on above: Performed By: #### 2 4323-8 #### GALINA GARCIAS ([id number]) [facility] ([facility]) [address] [place] [address] Sodium [Moles/Vol] 141 mmol/L Normal 136-145 [facility] Comment on above: Performed By: #### 2 4323-8 #### GALINA GARCIAS ([id number]) [facility] ([facility]) [address] [place] [address] Urea nitrogen [Mass/Vol] 45 mg/dL High 6- [facility] Comment on above: Performed By: #### 2 4323-8 #### GALINA GARCIAS ([id number]) [facility] ([facility]) [address] [place] [address] HbA1c (Bld) [Mass fraction]o n 07-10-2024 Average glucose Estimated from glycated hemoglobin (Bld) [Mass/Vol] 206 mg/dL Normal Not Established [facility] Comment on above: Order Comment: Diagn osis of Diabetes-Adults Non-Diabetic: < or = 5.6% Increased risk for developing diabetes: 5.7-6.4% Diagnostic of diabetes: > or = 6.5% Performed By: #### 4 548-4 #### RICHI Zeng ([id number]) [facility] ([facility]) [address] [place] [address] Hemoglobin A1c/Hemoglobin.to guillermo 07-10-2024 HbA1c (Bld) [Mass fraction] 8.8 % High See comment [facility] Comment on above: Order Comment: Diagn osis of Diabetes-Adults Non-Diabetic: < or = 5.6% Increased risk for developing diabetes: 5.7-6.4% Diagnostic of diabetes: > or = 6.5% Performed By: #### 4 548-4 #### RICHI Zeng ([id number]) [facility] ([facility]) [address] [place] [address] Lipid 1996 panelon 4 Cholesterol [Mass/Vol] 182 mg/dL Normal 0-199 [facility] Comment on above: Result Comment: Age Desirable Borderline High High 0-19 Y 0 - 169 170 - 199 >/= 200 20-24 Y 0 - 189 190 - 224 >/= 225 >24 Y 0 - 199 200 - 239 >/= 240 All ranges are based on fasting samples. Specific therapeutic targets will vary based on patient-specific cardiac risk. Pediatric guidelines reference:Pediatrics 2011, 128(S5).Adult guidelines reference: NCEP ATPIII Guidelines,ANNA 2001, 258:2486-97 Venipuncture immediately after or during the administration of Metamizole may lead to falsely low results. Testing should be performed immediately prior to Metamizole dosing. Performed By: #### 2 4331-1 #### GALINA GARCIAS ([id number]) [facility] ([facility]) [facility] [place] [address] Cholesterol in HDL [Mass/Vol] 32.0 mg/dL Normal [facility] Comment on above: Result Comment: Age Very Low Low Normal High 0-19 Y < 35 < 40 40-45 ---- 20-24 Y ---- < 40 >45 ---- >24 Y ---- < 40 40-60 >60 Performed By: #### 2 4331-1 #### GALINA GARCIAS ([id number]) [facility] ([facility]) [facility] [place] [address] Cholesterol in LDL [Mass/Vol] Normal [facility] Comment on above: Result Comment: The calculation of LDL and VLDL are inaccurate when the Triglycerides are greater than 400 mg/dL or when the patient is non-fasting. If LDL measurement is necessary contact the testing laboratory for an alternative LDL assay. Near Borderline AGE Desirable Optimal High High Very High 0-19 Y 0 - 109 --- 110-129 >/= 130 ---- 20-24 Y 0 - 119 --- 120-159 >/= 160 ---- >24 Y 0 - 99 100-129 130-159 160-189 >/=190 Performed By: #### 2 4331-1 #### GALINA GARCIAS ([id number]) [facility] ([facility]) [facility] [place] [address] CHOLESTEROL/HDL RATIO 5.7 Normal [facility] Comment on above: Result Comment: Ref Values Desirable < 3.4 High Risk > 5.0 Performed By: #### 2 4331-1 #### GALINA GARCIAS ([id number]) [facility] ([facility]) [address] [place] [address] NON HDL CHOLESTEROL 150 mg/dL High 0-149 [facility] Comment on above: Result Comment: Age Desirable Borderline High High Very High 0-19 Y 0 - 119 120 - 144 >/= 145 >/= 160 20-24 Y 0 - 149 150 - 189 >/= 190 ---- >24 Y 30 mg/dL above LDL Cholesterol goal Performed By: #### 2 4331-1 #### GALINA GARCIAS ([id number]) [facility] ([facility]) [address] [place] [address] Triglyceride [Mass/Vol] 700 mg/dL High 0-149 [facility] Comment on above: Result Comment: Age Desirable Borderline High High Very High 0 D-90 D 19 - 174 ---- ---- ---- 91 D- 9 Y 0 - 74 75 - 99 >/= 100 ---- 10-19 Y 0 - 89 90 - 129 >/= 130 ---- 20-24 Y 0 - 114 115 - 149 >/= 150 ---- >24 Y 0 - 149 150 - 199 200- 499 >/= 500 Venipuncture immediately after or during the administration of Metamizole may lead to falsely low results. Testing should be performed immediately prior to Metamizole dosing. Performed By: #### 2 4331-1 #### GALINA GARCIAS ([id number]) [facility] ([facility]) [address] [place], [place] [address] [facility] Comment on above: Result Comment: Unab le to calculate VLDL. Performed By: #### 2 4331-1 #### MOJICA KATERINE ([id number]) [facility] ([facility]) [address] [place] [address] BASIC METABOLIC PANELon -2 Anion gap [Moles/Vol] 15 mmol/L Normal 10-20 [facility] Comment on above: Order Comment: RAJINDER l ower with wave forms of digits isela Performed By: #### 4 6124 ####[facility] [address] [address] Suraj Gamez M.D. [id number] Calcium [Mass/Vol] 9.7 mg/dL Normal 8.4-10.2 [facility] Comment on above: Order Comment: RAJINDER l ower with wave forms of digits isela Performed By: #### 4 6124 #### LAB [address] [address] Suraj Gamez M.D. [id number] Chloride [Moles/Vol] 100 mmol/L Normal 98-108 [facility] Comment on above: Order Comment: RAJINDER l ower with wave forms of digits isela Performed By: #### 4 6124 #### LAB [address] [address] Suraj Gamez M.D. [id number] Creatinine [Mass/Vol] 1.17 mg/dL Normal 0.80-1.30 [facility] Comment on above: Order Comment: RAJINDER l ower with wave forms of digits isela Performed By: #### 4 6124 #### LAB [address] [address] Suraj Gamez M.D. [id number] EGFR 71 mL/min/1.73 m2 Normal >=60 [facility] Comment on above: Order Comment: RAJINDER l ower with wave forms of digits isela Result Comment: Dorothea mated GFR was calculated using the 2020 CKD-EPI creatinine equation. Performed By: #### 4 6124 #### [facility] [address] [address] Suraj Gamez M.D. [id number] Glucose [Mass/Vol] 267 mg/dL High 65-99 [facility] Comment on above: Order Comment: RAJINDER l ower with wave forms of digits isela Performed By: #### 4 6124 #### LAB [address] [address] Suraj Gamez M.D. [id number] HCO3 (Bld) [Moles/Vol] 29 mmol/L Normal 21-32 [facility] Comment on above: Order Comment: RAJINDER l ower with wave forms of digits isela Performed By: #### 4 6124 #### LAB [address] [address] Suraj Gamez M.D. [id number] Potassium [Moles/Vol] 4.6 mmol/L Normal 3.5-5.1 [facility] Comment on above: Order Comment: RAJINDER l ower with wave forms of digits isela Performed By: #### 4 6124 #### LAB [address] [address] Suraj Gamez M.D. [id number] Sodium [Moles/Vol] 139 mmol/L Normal 135-145 [facility] Comment on above: Order Comment: RAJINDER l ower with wave forms of digits isela Performed By: #### 4 6124 #### LAB [address] [address] Suraj Gamez M.D. [id number] Urea nitrogen [Mass/Vol] 38 mg/dL High 8-25 [facility] Comment on above: Order Comment: RAJINDER l ower with wave forms of digits isela Performed By: #### 4 6124 ####[facility] [address] [address] Suraj Gamez M.D. [id number] Urea nitrogen/Creatinine [Mass ratio] 32.5 mg/mg High 10.0-20.0 [facility] Comment on above: Order Comment: RAJINDER l ower with wave forms of digits isela Performed By: #### 4 6125 #### LAB [address] [address] Suraj Gamez M.D. [id number] CBC WITH AUTO DIFFERENTIALon 06-30-2024 AUTO NRBC 0.0 % Normal [facility] Comment on above: Performed By: #### 4 7015 #### LAB [address] [address] Suraj Gamez M.D. [id number] AUTO NRBC ABS COUNT 0.00 K/mcL Normal 0.00-0.00 [facility] Comment on above: Performed By: #### 4 7015 #### LAB [address] [address] Suraj Gamez M.D. [id number] BASOPHILS ABSOLUTE COUNT 0.03 K/mcL Normal 0.00-0.30 [facility] Comment on above: Performed By: #### 4 7015 #### LAB [address] [address] Suraj Gamez M.D. [id number] Basophils/100 WBC (Bld) 0.5 % Normal [facility] Comment on above: Performed By: #### 4 7015 #### LAB [address] [address] Suraj Gamez M.D. [id number] Eosinophils (Bld) [#/Vol] 0.20 10*3/uL Normal 0.00-0.50 [facility] Comment on above: Performed By: #### 4 7015 #### LAB [address] [place] [address] Suraj Gamez M.D. [id number] Eosinophils/100 WBC (Bld) 3.5 % Normal [facility] Comment on above: Performed By: #### 4 7015 #### LAB [address] [address] Suraj Gamez M.D. [id number] Erythrocyte distribution width (RBC) [Ratio] 13.2 % Normal 11.6-14.8 [facility] Comment on above: Performed By: #### 4 7015 #### LAB [address] [place] [address] Suraj Gamez M.D. [id number] Hematocrit (Bld) [Volume fraction] 34.6 % Low 41.0-53.0 [facility] Comment on above: Performed By: #### 4 7015 #### LAB [address] [address] Suraj Gamez M.D. [id number] Hemoglobin (Bld) [Mass/Vol] 10.9 g/dL Low 13.5-17.5 [facility] Comment on above: Performed By: #### 4 7015 #### LAB [address] [address] Suraj Gamez M.D. [id number] IG ABSOLUTE 0.04 K/mcL Normal 0.00-0.30 [facility] Comment on above: Performed By: #### 4 7015 #### LAB [address] [address] Suraj Gamez M.D. [id number] IG PERCENT 0.70 % [facility] Comment on above: Result Comment: The IG parameter is the percentage of metamyelocytes, myelocytes and promyelocytes. An immature granulocyte count (IG) of 1% or more suggests the possibility of infection, an IG count of 3% is very likely related to an infection. Performed By: #### 4 7015 #### LAB [address] [address] Suraj Gamez M.D. [id number] Lymphocytes (Bld) [#/Vol] 0.63 10*3/uL Low 0.90-4.00 [facility] Comment on above: Performed By: #### 4 7015 #### LAB [address] [address] Suraj Gamez M.D. [id number] Lymphocytes/100 WBC (Bld) 11.1 % Normal [facility] Comment on above: Performed By: #### 4 7015 #### LAB [address] [address] Suraj Gamez M.D. [id number] MCH (RBC) [Entitic mass] 27.2 pg Normal 26.0-34.0 [facility] Comment on above: Performed By: #### 4 7015 #### LAB [address] [address] Suraj Gamez M.D. [id number] MCV (RBC) [Entitic vol] 86.3 fL Normal 80.0-100.0 [facility] Comment on above: Performed By: #### 4 7015 #### LAB [address] [address] Suraj Gamez M.D. [id number] MEAN CORPUSCULAR HEMOGLOBIN CONC 31.5 g/dL Normal 31.0-37.0 [facility] Comment on above: Performed By: #### 4 7015 #### LAB [address] [address] Suraj Gamez M.D. [id number] Monocytes (Bld) [#/Vol] 0.64 10*3/uL Normal 0.30-0.90 [facility] Comment on above: Performed By: #### 4 7015 #### LAB [address] [address] Suraj Gamez M.D. [id number] Monocytes/100 WBC (Bld) 11.3 % Normal [facility] Comment on above: Performed By: #### 4 7015 #### LAB [address] [address] Suraj Gamez M.D. [id number] NEUTROPHILS ABSOLUTE COUNT 4.14 K/mcL Normal 1.70-7.00 [facility] Comment on above: Performed By: #### 4 7015 #### LAB [address] [address] Suraj Gamez M.D. [id number] Neutrophils/100 WBC (Bld) 72.9 % Normal [facility] Comment on above: Performed By: #### 4 7015 #### LAB [address] [address] Suraj Gamez M.D. [id number] Platelet mean volume (Bld) [Entitic vol] 10.6 fL Normal 9.4-12.4 [facility] Comment on above: Performed By: #### 4 7015 #### LAB [address] [address] Suraj Gamez M.D. [id number] Platelets (Bld) [#/Vol] 173 10*3/uL Normal 150-400 [facility] Comment on above: Performed By: #### 4 7015 #### LAB [address] [address] Suraj Gamez M.D. [id number] RBC (Bld) [#/Vol] 4.01 10*6/uL Low 4.50-5.90 [facility] Comment on above: Performed By: #### 4 7015 #### LAB [address] [address] Suraj Gamez M.D. [id number] WBC (Bld) [#/Vol] 5.68 10*3/uL Normal 4.50-11.00 [facility] Comment on above: Performed By: #### 4 7015 #### LAB [address] [address] Suraj Gamez M.D. [id number] MAGNESIUM LEVELon 06-30-2024 Magnesium [Mass/Vol] 1.6 mg/dL Normal 1.6-2.4 [facility] Comment on above: Performed By: #### 4 6109 #### LAB [address] [address] Suraj Gamez M.D. [id number] POC GLUCOSE - [facility] 024 Glucose [Mass/Vol] 299 mg/dL [address] Comment on above: Performed By: #### 4 6932 #### LAB [address] [address] Suraj Gamez M.D. [id number] Glucose [Mass/Vol] 261 mg/dL [address] Comment on above: Performed By: #### 4 6932 #### LAB [address] [address] Suraj Gamez M.D. [id number] BASIC METABOLIC PANELon 09-2 Anion gap [Moles/Vol] 13 mmol/L Normal 10-20 [facility] Comment on above: Order Comment: RAJINDER l ower with wave forms of digits isela Performed By: #### 4 6124 #### LAB [address] [address] Suraj Gamez M.D. [id number] Calcium [Mass/Vol] 9.8 mg/dL Normal 8.4-10.2 [facility] Comment on above: Order Comment: RAJINDER l ower with wave forms of digits isela Performed By: #### 4 6124 #### LAB [address] [address] Suraj Gamez M.D. [id number] Chloride [Moles/Vol] 96 mmol/L Low 98-108 [facility] Comment on above: Order Comment: RAJINDER l ower with wave forms of digits isela Performed By: #### 4 6124 #### LAB [address] [address] Suraj Gamez M.D. [id number] Creatinine [Mass/Vol] 1.32 mg/dL High 0.80-1.30 [facility] Comment on above: Order Comment: RAJINDER l ower with wave forms of digits isela Performed By: #### 4 6124 #### LAB [address] [address] Suraj Gamez M.D. [id number] EGFR 61 mL/min/1.73 m2 Normal >=60 [facility] Comment on above: Order Comment: RAJINDER l ower with wave forms of digits isela Result Comment: Dorothea mated GFR was calculated using the 2020 CKD-EPI creatinine equation. Performed By: #### 4 6170 #### LAB [address] [address] Suraj Gamez M.D. [id number] Glucose [Mass/Vol] 271 mg/dL High 65-99 [facility] Comment on above: Order Comment: RAJINDER l ower with wave forms of digits isela Performed By: #### 4 6195 #### LAB [address] [address] Suraj Gamez M.D. [id number] HCO3 (Bld) [Moles/Vol] 30 mmol/L Normal 21-32 [facility] Comment on above: Order Comment: RAJINDER l ower with wave forms of digits isela Performed By: #### 4 6124 #### LAB [address] [address] Suraj Gamez M.D. [id number] Potassium [Moles/Vol] 4.4 mmol/L Normal 3.5-5.1 [facility] Comment on above: Order Comment: RAJINDER l ower with wave forms of digits isela Performed By: #### 4 6124 #### LAB [address] [address] Suraj Gamez M.D. [id number] Sodium [Moles/Vol] 135 mmol/L Normal 135-145 [facility] Comment on above: Order Comment: RAJINDER l ower with wave forms of digits isela Performed By: #### 4 6124 #### LAB [address] [address] Suraj Gamez M.D. [id number] Urea nitrogen [Mass/Vol] 42 mg/dL High 8- [facility] Comment on above: Order Comment: RAJINDER l ower with wave forms of digits isela Performed By: #### 4 6124 #### LAB [address] [address] Suraj Gamez M.D. [id number] Urea nitrogen/Creatinine [Mass ratio] 31.8 mg/mg High 10.0-20.0 [facility] Comment on above: Order Comment: RAJINDER l ower with wave forms of digits isela Performed By: #### 4 6124 #### LAB [address] [address] Suraj Gamez M.D. [id number] CBC WITH AUTO DIFFERENTIALon 06-29-2024 AUTO NRBC 0.0 % Normal [facility] Comment on above: Performed By: #### 4 7015 #### LAB [address] [address] Suraj Gamez M.D. [id number] AUTO NRBC ABS COUNT 0.00 K/mcL Normal 0.00-0.00 [facility] Comment on above: Performed By: #### 4 7015 #### LAB [address] [address] Suraj Gamez M.D. [id number] BASOPHILS ABSOLUTE COUNT 0.03 K/mcL Normal 0.00-0.30 [facility] Comment on above: Performed By: #### 4 7015 #### LAB [address] [address] Suraj Gamez M.D. [id number] Basophils/100 WBC (Bld) 0.6 % Normal [facility] Comment on above: Performed By: #### 4 7015 #### LAB [address] [address] Suraj Gamez M.D. [id number] Eosinophils (Bld) [#/Vol] 0.21 10*3/uL Normal 0.00-0.50 [facility] Comment on above: Performed By: #### 4 9714 #### LAB [address] [address] Suraj Gamez M.D. [id number] Eosinophils/100 WBC (Bld) 3.9 % Normal [facility] Comment on above: Performed By: #### 4 7036 #### LAB [address] [address] Suraj Gamez M.D. [id number] Erythrocyte distribution width (RBC) [Ratio] 13.2 % Normal 11.6-14.8 [facility] Comment on above: Performed By: #### 4 2004 #### LAB [address] [address] Suraj Gamez M.D. [id number] Hematocrit (Bld) [Volume fraction] 36.4 % Low 41.0-53.0 [facility] Comment on above: Performed By: #### 4 6788 #### LAB [address] [address] Suraj Gamez M.D. [id number] Hemoglobin (Bld) [Mass/Vol] 11.7 g/dL Low 13.5-17.5 [facility] Comment on above: Performed By: #### 4 7015 #### LAB [address] [address] Suraj Gamez M.D. [id number] IG ABSOLUTE 0.02 K/mcL Normal 0.00-0.30 [facility] Comment on above: Performed By: #### 4 7015 #### LAB [address] [address] Suraj Gamez M.D. [id number] IG PERCENT 0.40 % Normal [facility] Comment on above: Result Comment: The IG parameter is the percentage of metamyelocytes, myelocytes and promyelocytes. An immature granulocyte count (IG) of 1% or more suggests the possibility of infection, an IG count of 3% is very likely related to an infection. Performed By: #### 4 7015 #### LAB [address] [address] Suraj Gamez M.D. [id number] Lymphocytes (Bld) [#/Vol] 0.62 10*3/uL Low 0.90-4.00 [facility] Comment on above: Performed By: #### 4 7015 #### LAB [address] [address] Suraj Gamez M.D. [id number] Lymphocytes/100 WBC (Bld) 11.6 % Normal [facility] Comment on above: Performed By: #### 4 7015 #### LAB [address] [address] Suraj Gamez M.D. [id number] MCH (RBC) [Entitic mass] 28.3 pg Normal 26.0-34.0 [facility] Comment on above: Performed By: #### 4 7015 #### LAB [address] [address] Suraj Gamez M.D. [id number] MCV (RBC) [Entitic vol] 88.1 fL Normal 80.0-100.0 [facility] Comment on above: Performed By: #### 4 7015 #### LAB [address] [address] Suraj Gamez M.D. [id number] MEAN CORPUSCULAR HEMOGLOBIN CONC 32.1 g/dL Normal 31.0-37.0 [facility] Comment on above: Performed By: #### 4 7015 #### LAB [address] [address] Suraj Gamez M.D. [id number] Monocytes (Bld) [#/Vol] 0.61 10*3/uL Normal 0.30-0.90 [facility] Comment on above: Performed By: #### 4 7015 #### LAB [address] [address] Suraj Gamez M.D. [id number] Monocytes/100 WBC (Bld) 11.4 % Normal [facility] Comment on above: Performed By: #### 4 7015 #### LAB [address] [address] Suraj Gamez M.D. [id number] NEUTROPHILS ABSOLUTE COUNT 3.85 K/mcL Normal 1.70-7.00 [facility] Comment on above: Performed By: #### 4 7015 #### LAB [address] [address] Suraj Gamez M.D. [id number] Neutrophils/100 WBC (Bld) 72.1 % Normal [facility] Comment on above: Performed By: #### 4 7015 #### LAB [address] [address] Suraj Gamez M.D. [id number] Platelet mean volume (Bld) [Entitic vol] 10.1 fL Normal 9.4-12.4 [facility] Comment on above: Performed By: #### 4 7015 #### LAB [address] [place] [address] Suraj Gamez M.D. [id number] Platelets (Bld) [#/Vol] 202 10*3/uL Normal 150-400 [facility] Comment on above: Performed By: #### 4 7015 #### LAB [address] [place], [place] [address] Suraj Gamez M.D. [id number] RBC (Bld) [#/Vol] 4.13 10*6/uL Low 4.50-5.90 [facility] Comment on above: Performed By: #### 4 7015 #### LAB [address] [id number] Suraj Gamez M.D. [id number] WBC (Bld) [#/Vol] 5.34 10*3/uL Normal 4.50-11.00 [facility] Comment on above: Performed By: #### 4 7015 #### LAB [address] [place], [place] [address] Suraj Gamez M.D. [id number] MAGNESIUM LEVELon 06-29-2024 Magnesium [Mass/Vol] 1.6 mg/dL Normal 1.6-2.4 [facility] Comment on above: Performed By: #### 4 6109 #### LAB [address] [place], [place] [address] Suraj Gamez M.D. [id number] OP NOTEon 06-29-2024 OP NOTE OPERATIVE REPORT: Patient: Dyllan Huertas Surgeon: Alena Mora D.P.M. Boat Ride Operator: None Preoperative Diagnosis: Osteomyelitis of second toe, left foot Full thickness ulceration of second toe, left foot Postoperative Diagnosis: Osteomyelitis of second toe, left foot Full thickness ulceration of second toe, left foot Procedure: Excision of ulceration and Partial amputation of second toe, left foot Anesthesia: Monitored anesthesia care and local anesthesia Antibiotics: Continued from the floor Specimen: -Bone and soft tissue from the distal tuft of distal phalanx of second toe sent to pathology for gross examination -Bone from the distal tuft of distal phalanx of second toe sent to microbiology for anaerobic and aerobic culture and sensitivity -Bone (Middle phalanx of second toe) sent to pathology as clean margin Hemostasis: Anatomical dissection, electrocautery, left ankle tourniquet inflated to 250 mmHg Estimated Blood Loss: 2 mL Materials Used: 4-0 Prolene suture Complications: None Intraoperative Findings: Consistent with preoperative diagnosis. Soft and brittle hurtado bone at the distal tuft of the distal phalanx of second toe. No purulence. No abscess. Indications for Procedure: Patient is a pleasant 63-year-old male admitted to the hospital for worsening infection to the left second toe concerning for osteomyelitis. Both radiographic and MRI findings confirm osteomyelitis at the distal tuft of the distal phalanx of the left second toe. Discussed with patient partial amputation and excision of ulceration for eradication of infection. Discussed risk and benefits of surgery and patient agreed to proceed with surgery accordingly. No guarantees were made. Procedure in Detail: I saw the patient in the preoperative holding area and the operative site was marked. The patient was then brought to the operating room placed on the table in a supine position. A formal timeout was performed indicating the patient's name, date of , site/side and procedure to be performed. All parties were in agreement. A pneumatic ankle tourniquet was placed about the left ankle. Following IV sedation, local anesthesia was obtained about the left second toe utilizing 10 cc of 1:1 mixture of 1% lidocaine plain and 0.5% Marcaine plain. The foot was then scrubbed, prepped and draped in the usual aseptic manner. An Esmarch was then used to exsanguinate the patient's left foot and the tourniquet was inflated to 250 mmHg. Attention was directed to the distal tuft of the left second toe where a full-thickness ulceration is noted probing down to bone with localized edema, erythema and drainage. Using a #15 blade, an elliptical incision encompassing the ulceration site was made. The incision was deepened down to subcutaneous tissue and bone. This allowed for the ulceration site to be excised and for disarticulation of the toe at the distal interphalangeal joint. This was removed from the operative site. Bone at the distal aspect of the distal phalanx of the left second toe was noted to be brittle and kee. This bone was obtained and sent to pathology for gross examination and also to microbiology for anaerobic and aerobic culture and sensitivity. The surgical amputation site was then irrigated copiously with sterile saline and all bleeders were cauterized as needed. Then, the middle phalanx of the left second toe was dissected and disarticulated at the proximal interphalangeal joint. It was then removed from operative site and sent to pathology as clean margin. This bone appeared to be hard and yellow. Upon completion of the procedure, the tourniquet was then deflated and a prompt hyperemic response was noted to digits of the operative limb. The surgical site was then irrigated again copiously with sterile saline and all bleeders were cauterized as needed. The incision site then was closed in using 4-0 Prolene suture for skin closure. The incision was then dressed with Betadine soaked Xeroform, 4 x 4's, light Kerlix and dry sterile dressing. An Zechariah bandage was applied to the left foot. I was present and performed the entirety of the surgery. The patient tolerated procedure and anesthesia well and was transferred to the PACU vital signs stable and vascular status intact. Following a period of postoperative monitoring, the patient will be returned back to his inpatient floor with instructions to be nonweightbearing to the left foot. Patient may use his heel to pivot or transfer. Postoperative radiographs will be obtained in recovery. Alena Mora DPM, MS Podiatric Physician & Surgeon AUTHENTICATED BY ALENA MORA, ON 06/29/2024 21:46:34 [facility] POC GLUCOSE - [facility] 024 Glucose [Mass/Vol] 229 mg/dL [address] Comment on above: Performed By: #### 4 6932 #### [facility] LAB [address] [place], [place] [address] Suraj Gamez M.D. [id number] Glucose [Mass/Vol] 261 mg/dL [address] Comment on above: Performed By: #### 4 6932 ####[facility] LAB [address] [place], [place] [address] Suraj Gamez M.D. [id number] Glucose [Mass/Vol] 219 mg/dL [address] Comment on above: Performed By: #### 4 6932 ####[facility] LAB [address] [place], [place] [address] Suraj Gamez M.D. [id number] Glucose [Mass/Vol] 266 mg/dL [address] Comment on above: Performed By: #### 4 6932 #### LAB [address] [place], [place] [address] Suraj Gamez M.D. [id number] Glucose [Mass/Vol] 274 mg/dL High [address] [place] [address] Comment on above: Performed By: #### 4 6932 #### MH LAB [address] [place], [place] [address] Suraj Gamez M.D. [id number] Glucose [Mass/Vol] 279 mg/dL High [address] [place] [address] Comment on above: Performed By: #### 4 6932 #### LAB [address] [place], [place] [address] Suraj Gamez M.D. [id number] TISSUE EXAMon 06-29-2024 TISSUE EXAM Surgical Pathology Report Case: [id number] Authorizing Provider: Alena Mora DPM Collected: 06/29/2024 08:01 AM Ordering Location: [facility] Periop Received: 06/29/2024 10:25 AM Pathologist: April Gonzalez MD Specimens: A) - Toe, Left, Two, middle phalanx for clean margin B) - Toe, Left, Two, 5th distal tuft of toe amp A. Toe, Left, Second, Middle Phalanx, excision: Bone and cartilage with degenerative change. No evidence of osteomyelitis. B. Toe, Left, Second, amputation: Bone and cartilage with focal, nonspecific chronic inflammation and reactive changes. Skin and soft tissue with ulcer and necrosis. See comment. Comment: There is no morphologic evidence of osteomyelitis. Correlation with results of microbial cultures is recommended. Osteomyelitis, left second toe A. Received in formalin labeled toe, left, two is a piece of bone measuring 1.7 x 1.1 x 1 cm. The specimen is submitted for decalcification, serially sectioned, and entirely submitted in 2 cassettes. B. Received in formalin labeled toe, left, two is a portion of toe measuring 1.3 cm in length by 2 cm in greatest diameter. The distal aspect contains an ulcer measuring 2 cm in greatest dimension, located 0.1 cm from the nearest skin margin (inked blue). Sectioning reveals irregularity and focal softening of the underlying bone. Ladder Operator sections are submitted in 3 cassettes following decalcification. JR Gross examination performed at: [facility] - [address] [place] [address] Microscopic examination is performed. Normal [facility] Comment on above: Performed By: #### 4 7015 #### MH LAB [address] [place] [address] Suraj Gamez M.D. [id number] XR FOOT LEFT 3+ VIEWS (STAND GLORIA)on 06-29-2024 XR FOOT LEFT 3+ VIEWS (STANDARD) EXAMINATION: XR FOOT LEFT 3+ VIEWS (STANDARD) HISTORY: ORDERING SYSTEM PROVIDED HISTORY: post op, TECHNOLOGIST PROVIDED HISTORY: Illness/Other Reason for exam: POST OP Cancer History: u Surgery, RadiationHistory: Y Encounter Type: Subsequent/Follow-up Additional signs and symptoms: NA ORDERING SYSTEM PROVIDED DIAGNOSIS CODES: N50.89 Scrotal edema N39.490 Overflow incontinence L97.529 Toe ulcer, left, with unspecified severity ([facility]) M86.9 Osteomyelitis of toe of left foot ([facility]) L97.512 Foot ulcer with fat layer exposed, right ([facility]) I50.43 Acute on chronic combined systolic and diastolic heart failure ([facility]) I34.0 Mitral valve insufficiency, unspecified etiology I07.1 Tricuspid valve insufficiency, unspecified etiology E11.42 Type 2 diabetes mellitus with diabetic polyneuropathy, with long-term current use of insulin ([facility]) Z79.4 Type 2 diabetes mellitus with diabetic polyneuropathy, with long-term current use of insulin ([facility]) I25.10 Coronary artery disease, unspecified vessel or lesion type, unspecified whether angina present, unspecified whether [place] or transplanted heart I10 Essential hypertension E78.5 Dyslipidemia R69 Diagnosis unknown COMPARISON: 06/23/2024 and 03/07/2017 radiographs. FINDINGS: Three views of the left foot. Interval amputation of the 2nd digit distal and middle phalanges. Small amount of soft tissue emphysema in the surgical bed. Elsewhere, no acute fracture. Chronic fracture deformity of the proximal 5th metatarsal with fractured partially threaded, cannulated screw. Payam deformity. Moderate Achilles calcaneal enthesophyte. Large plantar calcaneal enthesophyte. Mild tibiotalar joint osteoarthritic changes. Severe osteoarthritic changes of the midfoot. Mild 1st MTP osteoarthritic changes. Diffuse soft swelling of the foot. IMPRESSION: Interval 2nd digit middle and distal phalangeal amputation. /hospital [facility] Workstation ID: [id number] Dictated by: JEFFERSON ELDER on WedJun 29, 2024 10:38:59 AM EDT Transcribed by: JOSE MONTALVO on WedJun 29, 2024 10:44:33 AM EDT Finalized by: JEFFERSON ELDER on Meghan Jun 29, 2024 5:07:02 PM EDT Normal [facility] Comment on above: Order Comment: Injur y/Trauma or Illness?:Illness/Other How long have you had these symptoms (acute/chronic)?:Acute Reason for exam?:SCROTAL SWELLING History of cancer?:u Surgeries, chemotherapy, or radiation?:Y RIGHT FOOT RECONSTRUCTION WITH APPLICATION OF CIRCULAR STATIC EXTERNAL FIXATION Type of Exam?:Initial Additional signs and symptoms?:NONE BASIC METABOLIC PANELon 06-05 Anion gap [Moles/Vol] 14 mmol/L Normal 10-20 [facility] Comment on above: Order Comment: [facility] has implemented the eGFR calculation approach that does not have a coefficient for race that conforms to the NKF-ASN Task Force Recommendations. Performed By: #### 4 6124 #### LAB [address] [place], [place] [address] Suraj Gamez M.D. [id number] Calcium [Mass/Vol] 9.8 mg/dL Normal 8.4-10.2 [facility] Comment on above: Order Comment: [facility] has implemented the eGFR calculation approach that does not have a coefficient for race that conforms to the NKF-ASN Task Force Recommendations. Performed By: #### 4 6124 #### LAB [address] [place], [place] [address] Suraj Gamez M.D. [id number] Chloride [Moles/Vol] 98 mmol/L Normal 98-108 [facility] Comment on above: Order Comment: [facility] has implemented the eGFR calculation approach that does not have a coefficient for race that conforms to the NKF-ASN Task Force Recommendations. Performed By: #### 4 6124 #### LAB [address] [address] Suraj Gamez M.D. [id number] Creatinine [Mass/Vol] 1.22 mg/dL Normal 0.80-1.30 [facility] Comment on above: Order Comment: [facility] has implemented the eGFR calculation approach that does not have a coefficient for race that conforms to the NKF-ASN Task Force Recommendations. Performed By: #### 4 6124 #### LAB [address] [address] Suraj Gamez M.D. [id number] EGFR 67 mL/min/1.73 m2 Normal >=60 [facility] Comment on above: Order Comment: [facility] has implemented the eGFR calculation approach that does not have a coefficient for race that conforms to the NKF-ASN Task Force Recommendations. Result Comment: Dorothea mated GFR was calculated using the 2020 CKD-EPI creatinine equation. Performed By: #### 4 6124 #### LAB [address] [address] Suraj Gamez M.D. [id number] Glucose [Mass/Vol] 223 mg/dL High 65-99 [facility] Comment on above: Order Comment: [facility] has implemented the eGFR calculation approach that does not have a coefficient for race that conforms to the NKF-ASN Task Force Recommendations. Performed By: #### 4 6124 #### LAB [address] [address] Suarj Gamez M.D. [id number] HCO3 (Bld) [Moles/Vol] 31 mmol/L Normal 21-32 [facility] Comment on above: Order Comment: [facility] has implemented the eGFR calculation approach that does not have a coefficient for race that conforms to the NKF-ASN Task Force Recommendations. Performed By: #### 4 6124 #### LAB [address] [address] Suraj Gamez M.D. [id number] Potassium [Moles/Vol] 4.1 mmol/L Normal 3.5-5.1 [facility] Comment on above: Order Comment: [facility] has implemented the eGFR calculation approach that does not have a coefficient for race that conforms to the NKF-ASN Task Force Recommendations. Performed By: #### 4 6124 #### LAB [address] [address] Suraj Gamez M.D. [id number] Sodium [Moles/Vol] 139 mmol/L Normal 135-145 [facility] Comment on above: Order Comment: [facility] has implemented the eGFR calculation approach that does not have a coefficient for race that conforms to the NKF-ASN Task Force Recommendations. Performed By: #### 4 6124 #### LAB [address] [address] Suraj Gamez M.D. [id number] Urea nitrogen [Mass/Vol] 38 mg/dL High 05-28 [facility] Comment on above: Order Comment: [facility] has implemented the eGFR calculation approach that does not have a coefficient for race that conforms to the NKF-ASN Task Force Recommendations. Performed By: #### 4 6124 #### LAB [address] [address] Suraj Gamez M.D. [id number] Urea nitrogen/Creatinine [Mass ratio] 31.1 mg/mg High 10.0-20.0 [facility] Comment on above: Order Comment: [facility] has implemented the eGFR calculation approach that does not have a coefficient for race that conforms to the NKF-ASN Task Force Recommendations. Performed By: #### 4 6124 #### LAB [address] [address] Suraj Gamez M.D. [id number] CBC WITH AUTO DIFFERENTIALon 06-28-2024 AUTO NRBC 0.0 % Normal [facility] Comment on above: Performed By: #### L [id number] #### LAB [address] [address] Suraj Gamez M.D. [id number] AUTO NRBC ABS COUNT 0.00 K/mcL Normal 0.00-0.00 [facility] Comment on above: Performed By: #### L [id number] #### LAB [address] [address] Suraj Gamez M.D. [id number] BASOPHILS ABSOLUTE COUNT 0.03 K/mcL Normal 0.00-0.30 [facility] Comment on above: Performed By: #### L [id number] #### LAB [address] [address] Suraj Gamez M.D. [id number] Basophils/100 WBC (Bld) 0.5 % Normal [facility] Comment on above: Performed By: #### L [id number] #### LAB [address] [address] Suraj Gamez M.D. [id number] Eosinophils (Bld) [#/Vol] 0.22 10*3/uL Normal 0.00-0.50 [facility] Comment on above: Performed By: #### L [id number] #### LAB [address] [place] [address] Suraj Gamez M.D. [id number] Eosinophils/100 WBC (Bld) 3.9 % Normal [facility] Comment on above: Performed By: #### L [id number] #### LAB [address] [place] [address] Suraj Gamez M.D. [id number] Erythrocyte distribution width (RBC) [Ratio] 13.4 % Normal 11.6-14.8 [facility] Comment on above: Performed By: #### L [id number] #### LAB [address] [place] [address] Suraj Gamez M.D. [id number] Hematocrit (Bld) [Volume fraction] 37.0 % Low 41.0-53.0 [facility] Comment on above: Performed By: #### L [id number] #### LAB [address] [place] [address] Suraj Gamez M.D. [id number] Hemoglobin (Bld) [Mass/Vol] 11.8 g/dL Low 13.5-17.5 [facility] Comment on above: Performed By: #### L [id number] #### LAB [address] [place] [address] Suraj Gamez M.D. [id number] IG ABSOLUTE 0.02 K/mcL Normal 0.00-0.30 [facility] Comment on above: Performed By: #### L [id number] #### LAB [address] [place] [address] Suraj Gamez M.D. [id number] IG PERCENT 0.40 % Normal [facility] Comment on above: Result Comment: The IG parameter is the percentage of metamyelocytes, myelocytes and promyelocytes. An immature granulocyte count (IG) of 1% or more suggests the possibility of infection, an IG count of 3% is very likely related to an infection. Performed By: #### L [id number] #### LAB [address] [place] [address] Suraj Gamez M.D. [id number] Lymphocytes (Bld) [#/Vol] 0.61 10*3/uL Low 0.90-4.00 [facility] Comment on above: Performed By: #### L [id number] #### LAB [address] [place] [address] Suraj Gamez M.D. [id number] Lymphocytes/100 WBC (Bld) 10.9 % Normal [facility] Comment on above: Performed By: #### L [id number] #### LAB [address] [place] [address] Suraj Gamez M.D. [id number] MCH (RBC) [Entitic mass] 27.4 pg Normal 26.0-34.0 [facility] Comment on above: Performed By: #### L [id number] #### LAB [address] [place] [address] Suraj Gamez M.D. [id number] MCV (RBC) [Entitic vol] 85.8 fL Normal 80.0-100.0 [facility] Comment on above: Performed By: #### L [id number] #### LAB [address] [place] [address] Suraj Gamez M.D. [id number] MEAN CORPUSCULAR HEMOGLOBIN CONC 31.9 g/dL Normal 31.0-37.0 [facility] Comment on above: Performed By: #### L [id number] #### LAB [address] [place] [address] Suraj Gamez M.D. [id number] Monocytes (Bld) [#/Vol] 0.67 10*3/uL Normal 0.30-0.90 [facility] Comment on above: Performed By: #### L [id number] #### LAB [address] [place] [address] Suraj Gamez M.D. [id number] Monocytes/100 WBC (Bld) 12.0 % Normal [facility] Comment on above: Performed By: #### L [id number] #### LAB [address] [place] [address] Suraj Gamez M.D. [id number] NEUTROPHILS ABSOLUTE COUNT 4.04 K/mcL Normal 1.70-7.00 [facility] Comment on above: Performed By: #### L [id number] #### LAB [address] [place] [address] Suraj Gamez M.D. [id number] Neutrophils/100 WBC (Bld) 72.3 % Normal [facility] Comment on above: Performed By: #### L [id number] #### LAB [address] [place] [address] Suraj Gamez M.D. [id number] Platelet mean volume (Bld) [Entitic vol] 10.7 fL Normal 9.4-12.4 [facility] Comment on above: Performed By: #### L [id number] #### LAB [address] [place] [address] Suraj Gamez M.D. [id number] Platelets (Bld) [#/Vol] 201 10*3/uL Normal 150-400 [facility] Comment on above: Performed By: #### L [id number] ####[facility] LAB [address] [place] [address] Suraj Gamez M.D. [id number] RBC (Bld) [#/Vol] 4.31 10*6/uL Low 4.50-5.90 [facility] Comment on above: Performed By: #### L [id number] ####[facility] LAB [address] [place] [address] Suraj Gamez M.D. [id number] WBC (Bld) [#/Vol] 5.59 10*3/uL Normal 4.50-11.00 [facility] Comment on above: Performed By: #### L [id number] ####[facility] [address] [place] [address] Suraj Gamez M.D. [id number] MAGNESIUM LEVELon 06-28-2024 Magnesium [Mass/Vol] 1.6 mg/dL Normal 1.6-2.4 [facility] Comment on above: Performed By: #### 4 6109 ####[facility] LAB [address] [place] [address] Suraj Gamez M.D. [id number] POC GLUCOSE [facility] 024 Glucose [Mass/Vol] 246 mg/dL High [address] [place] [address] Comment on above: Performed By: #### 4 6903 ####[facility] [address] [address] Suraj Gamez M.D. [id number] Glucose [Mass/Vol] 215 mg/dL High [address] [place] [address] Comment on above: Performed By: #### 4 6992 ####[facility] [address] [address] Suraj Gamez M.D. [id number] Glucose [Mass/Vol] 290 mg/dL High [address] [place] [address] Comment on above: Performed By: #### 4 1759 ####[facility] [address] [address] Suraj Gamez M.D. [id number] Glucose [Mass/Vol] 242 mg/dL High 65-99 [facility] Comment on above: Performed By: #### 4 6932 #### LAB [address] [address] Suraj Gamez M.D. [id number] BASIC METABOLIC PANELon - Anion gap [Moles/Vol] 15 mmol/L Normal 10-20 [facility] Comment on above: Order Comment: [facility] has implemented the eGFR calculation approach that does not have a coefficient for race that conforms to the NKF-ASN Task Force Recommendations. Performed By: #### 4 6124 ####[facility] [address] [address] Suraj Gamez M.D. [id number] Calcium [Mass/Vol] 9.8 mg/dL Normal 8.4-10.2 [facility] Comment on above: Order Comment: [facility] has implemented the eGFR calculation approach that does not have a coefficient for race that conforms to the NKF-ASN Task Force Recommendations. Performed By: #### 4 6124 ####[facility] [address] [address] Suraj Gamez M.D. [id number] Chloride [Moles/Vol] 98 mmol/L Normal 98-108 [facility] Comment on above: Order Comment: [facility] has implemented the eGFR calculation approach that does not have a coefficient for race that conforms to the NKF-ASN Task Force Recommendations. Performed By: #### 4 6124 ####[facility] [address] [address] Suraj Gamez M.D. [id number] Creatinine [Mass/Vol] 1.27 mg/dL Normal 0.80-1.30 [facility] Comment on above: Order Comment: [facility] has implemented the eGFR calculation approach that does not have a coefficient for race that conforms to the NKF-ASN Task Force Recommendations. Performed By: #### 4 6124 ####[facility] [address] [id number] Suraj Gamez M.D. [id number] EGFR 64 mL/min/1.73 m2 Normal >=60 [facility] Comment on above: Order Comment: [facility] has implemented the eGFR calculation approach that does not have a coefficient for race that conforms to the NKF-ASN Task Force Recommendations. Result Comment: Dorothea mated GFR was calculated using the 2020 CKD-EPI creatinine equation. Performed By: #### 4 6124 #### LAB [address] [address] Suraj Gamez M.D. [id number] Glucose [Mass/Vol] 213 mg/dL High 65-99 [facility] Comment on above: Order Comment: [facility] has implemented the eGFR calculation approach that does not have a coefficient for race that conforms to the NKF-ASN Task Force Recommendations. Performed By: #### 4 6124 #### LAB [address] [address] Suraj Gamez M.D. [id number] HCO3 (Bld) [Moles/Vol] 31 mmol/L Normal 21-32 [facility] Comment on above: Order Comment: [facility] has implemented the eGFR calculation approach that does not have a coefficient for race that conforms to the NKF-ASN Task Force Recommendations. Performed By: #### 4 6124 #### LAB [address] [address] Suraj Gamez M.D. [id number] Potassium [Moles/Vol] 4.0 mmol/L Normal 3.5-5.1 [facility] Comment on above: Order Comment: [facility] has implemented the eGFR calculation approach that does not have a coefficient for race that conforms to the NKF-ASN Task Force Recommendations. Performed By: #### 4 6124 #### LAB [address] [address] Suraj Gamez M.D. [id number] Sodium [Moles/Vol] 140 mmol/L Normal 135-145 [facility] Comment on above: Order Comment: [facility] has implemented the eGFR calculation approach that does not have a coefficient for race that conforms to the NKF-ASN Task Force Recommendations. Performed By: #### 4 6124 #### LAB [address] [id number] Suraj Gamez M.D. [id number] Urea nitrogen [Mass/Vol] 37 mg/dL High 8-25 [facility] Comment on above: Order Comment: [facility] has implemented the eGFR calculation approach that does not have a coefficient for race that conforms to the NKF-ASN Task Force Recommendations. Performed By: #### 4 6124 #### LAB [address] [address] Suraj Gamez M.D. [id number] Urea nitrogen/Creatinine [Mass ratio] 29.1 mg/mg High 10.0-20.0 [facility] Comment on above: Order Comment: [facility] has implemented the eGFR calculation approach that does not have a coefficient for race that conforms to the NKF-ASN Task Force Recommendations. Performed By: #### 4 6124 #### LAB [address] [address] Suraj Gamez M.D. [id number] CBC WITH AUTO DIFFERENTIALon 06-27-2024 AUTO NRBC 0.0 % Normal [facility] Comment on above: Performed By: #### 4 7015 #### LAB [address] [id number] Suraj Gamez M.D. [id number] AUTO NRBC ABS COUNT 0.00 K/mcL Normal 0.00-0.00 [facility] Comment on above: Performed By: #### 4 7015 #### LAB [address] [address] Suraj Gamez M.D. [id number] BASOPHILS ABSOLUTE COUNT 0.03 K/mcL Normal 0.00-0.30 [facility] Comment on above: Performed By: #### 4 7015 #### LAB [address] [address] Suraj Gamez M.D. [id number] Basophils/100 WBC (Bld) 0.5 % Normal [facility] Comment on above: Performed By: #### 4 7015 #### LAB [address] [address] Suraj Gamez M.D. [id number] Eosinophils (Bld) [#/Vol] 0.22 10*3/uL Normal 0.00-0.50 [facility] Comment on above: Performed By: #### 4 7015 #### LAB [address] [address] Suraj Gamez M.D. [id number] Eosinophils/100 WBC (Bld) 4.0 % Normal [facility] Comment on above: Performed By: #### 4 7015 #### LAB [address] [address] Suraj Gamez M.D. [id number] Erythrocyte distribution width (RBC) [Ratio] 13.5 % Normal 11.6-14.8 [facility] Comment on above: Performed By: #### 4 7015 #### LAB [address] [address] Suraj Gamez M.D. [id number] Hematocrit (Bld) [Volume fraction] 34.5 % Low 41.0-53.0 [facility] Comment on above: Performed By: #### 4 7015 #### LAB [address] [address] Suraj Gamez M.D. [id number] Hemoglobin (Bld) [Mass/Vol] 11.0 g/dL Low 13.5-17.5 [facility] Comment on above: Performed By: #### 4 7322 #### LAB [address] [address] Suraj Gamez M.D. [id number] IG ABSOLUTE 0.04 K/mcL Normal 0.00-0.30 [facility] Comment on above: Performed By: #### 4 7411 #### LAB [address] [address] Suraj Gamez M.D. [id number] IG PERCENT 0.70 % Normal [facility] Comment on above: Result Comment: The IG parameter is the percentage of metamyelocytes, myelocytes and promyelocytes. An immature granulocyte count (IG) of 1% or more suggests the possibility of infection, an IG count of 3% is very likely related to an infection. Performed By: #### 4 7015 #### LAB [address] [address] Suraj Gamez M.D. [id number] Lymphocytes (Bld) [#/Vol] 0.61 10*3/uL Low 0.90-4.00 [facility] Comment on above: Performed By: #### 4 7015 #### LAB [address] [place] [address] Suraj Gamez M.D. [id number] Lymphocytes/100 WBC (Bld) 11.1 % Normal [facility] Comment on above: Performed By: #### 4 7015 #### LAB [address] [address] Suraj Gamez M.D. [id number] MCH (RBC) [Entitic mass] 27.4 pg Normal 26.0-34.0 [facility] Comment on above: Performed By: #### 4 7015 #### LAB [address] [address] Suraj Gamez M.D. [id number] MCV (RBC) [Entitic vol] 86.0 fL Normal 80.0-100.0 [facility] Comment on above: Performed By: #### 4 7015 #### LAB [address] [address] Suraj Gamez M.D. [id number] MEAN CORPUSCULAR HEMOGLOBIN CONC 31.9 g/dL Normal 31.0-37.0 [facility] Comment on above: Performed By: #### 4 7015 #### LAB [address] [place] [address] Suraj Gamez M.D. [id number] Monocytes (Bld) [#/Vol] 0.59 10*3/uL Normal 0.30-0.90 [facility] Comment on above: Performed By: #### 4 7015 #### LAB [address] [address] Suraj Gamez M.D. [id number] Monocytes/100 WBC (Bld) 10.8 % Normal [facility] Comment on above: Performed By: #### 4 7015 #### LAB [address] [address] Suraj Gamez M.D. [id number] NEUTROPHILS ABSOLUTE COUNT 3.99 K/mcL Normal 1.70-7.00 [facility] Comment on above: Performed By: #### 4 7015 #### LAB [address] [address] Suraj Gamez M.D. [id number] Neutrophils/100 WBC (Bld) 72.9 % Normal [facility] Comment on above: Performed By: #### 4 7015 #### LAB [address] [address] Suraj Gamez M.D. [id number] Platelet mean volume (Bld) [Entitic vol] 10.4 fL Normal 9.4-12.4 [facility] Comment on above: Performed By: #### 4 7015 #### LAB [address] [address] Suraj Gamez M.D. [id number] Platelets (Bld) [#/Vol] 203 10*3/uL Normal 150-400 [facility] Comment on above: Performed By: #### 4 7015 #### LAB [address] [address] Suraj Gamez M.D. [id number] RBC (Bld) [#/Vol] 4.01 10*6/uL Low 4.50-5.90 [facility] Comment on above: Performed By: #### 4 7015 #### LAB [address] [place] [address] Suraj Gamez M.D. [id number] WBC (Bld) [#/Vol] 5.48 10*3/uL Normal 4.50-11.00 [facility] Comment on above: Performed By: #### 4 7015 #### LAB [address] [address] Suraj Gamez M.D. [id number] MAGNESIUM LEVELon 06-27-2024 Magnesium [Mass/Vol] 1.6 mg/dL Normal 1.6-2.4 [facility] Comment on above: Performed By: #### 4 6109 ####[facility] [address] [address] Suraj Gamez M.D. [id number] POC GLUCOSE - [facility] 024 Glucose [Mass/Vol] 224 mg/dL High [address] [place] [address] Comment on above: Performed By: #### 4 6932 #### LAB [address] [address] Suraj Gamez M.D. [id number] Glucose [Mass/Vol] 225 mg/dL [address] Comment on above: Performed By: #### 4 6932 #### LAB [address] [address] Suraj Gamez M.D. [id number] Glucose [Mass/Vol] 275 mg/dL [address] Comment on above: Performed By: #### 4 6932 #### LAB [address] [address] Suraj Gamez M.D. [id number] Glucose [Mass/Vol] 227 mg/dL [address] Comment on above: Performed By: #### 4 6932 #### LAB [address] [address] Suraj Gamez M.D. [id number] CBCon 06-26-2024 AUTO NRBC 0.0 % Normal [facility] Comment on above: Performed By: #### 4 5218 #### LAB [address] [address] Suraj Gamez M.D. [id number] AUTO NRBC ABS COUNT 0.00 K/mcL Normal 0.00-0.00 [facility] Comment on above: Performed By: #### 4 5218 #### LAB [address] [address] Suraj Gamez M.D. [id number] Erythrocyte distribution width (RBC) [Ratio] 13.5 % Normal 11.6-14.8 [facility] Comment on above: Performed By: #### 4 5218 #### LAB [address] [address] Suraj Gamez M.D. [id number] Hematocrit (Bld) [Volume fraction] 34.0 % Low 41.0-53.0 [facility] Comment on above: Performed By: #### 4 5218 #### LAB [address] [address] Suraj Gamez M.D. [id number] Hemoglobin (Bld) [Mass/Vol] 10.4 g/dL Low 13.5-17.5 [facility] Comment on above: Performed By: #### 4 5218 #### LAB [address] [address] Suraj Gamez M.D. [id number] MCH (RBC) [Entitic mass] 28.0 pg Normal 26.0-34.0 [facility] Comment on above: Performed By: #### 4 5218 #### LAB [address] [address] Suraj Gamez M.D. [id number] MCV (RBC) [Entitic vol] 91.6 fL Normal 80.0-100.0 [facility] Comment on above: Performed By: #### 4 5218 #### LAB [address] [address] Suraj Gamez M.D. [id number] MEAN CORPUSCULAR HEMOGLOBIN CONC 30.6 g/dL Low 31.0-37.0 [facility] Comment on above: Performed By: #### 4 5218 #### LAB [address] [address] Suraj Gamez M.D. [id number] Platelet mean volume (Bld) [Entitic vol] 11.0 fL Normal 9.4-12.4 [facility] Comment on above: Performed By: #### 4 5218 #### LAB [address] [address] Suraj Gamez M.D. [id number] Platelets (Bld) [#/Vol] 188 10*3/uL Normal 150-400 [facility] Comment on above: Performed By: #### 4 5218 #### LAB [address] [address] Suraj Gamez M.D. [id number] RBC (Bld) [#/Vol] 3.71 10*6/uL Low 4.50-5.90 [facility] Comment on above: Performed By: #### 4 5218 #### LAB [address] [address] Suraj Gamez M.D. [id number] WBC (Bld) [#/Vol] 5.52 10*3/uL Normal 4.50-11.00 [facility] Comment on above: Performed By: #### 4 5218 #### LAB [address] [address] Suraj Gamez M.D. [id number] CHEM 06-26-2024 Anion gap [Moles/Vol] 14 mmol/L Normal 10-20 [facility] Comment on above: Order Comment: [facility] has implemented the eGFR calculation approach that does not have a coefficient for race that conforms to the NKF-ASN Task Force Recommendations. Performed By: #### 4 6953 #### LAB [address] [address] Suraj Gamez M.D. [id number] Chloride [Moles/Vol] 99 mmol/L Normal 98-108 [facility] Comment on above: Order Comment: [facility] has implemented the eGFR calculation approach that does not have a coefficient for race that conforms to the NKF-ASN Task Force Recommendations. Performed By: #### 4 6953 #### LAB [address] [place], [place] [address] Suraj Gamez M.D. [id number] Creatinine [Mass/Vol] 1.19 mg/dL Normal 0.80-1.30 [facility] Comment on above: Order Comment: [facility] has implemented the eGFR calculation approach that does not have a coefficient for race that conforms to the NKF-ASN Task Force Recommendations. Performed By: #### 4 6953 #### LAB [address] [address] Suraj Gamez M.D. [id number] EGFR 69 mL/min/1.73 m2 Normal >=60 [facility] Comment on above: Order Comment: [facility] has implemented the eGFR calculation approach that does not have a coefficient for race that conforms to the NKF-ASN Task Force Recommendations. Result Comment: Dorothea mated GFR was calculated using the 2020 CKD-EPI creatinine equation. Performed By: #### 4 6953 #### LAB [address] [address] Suraj Gamez M.D. [id number] Glucose [Mass/Vol] 209 mg/dL High 65-99 [facility] Comment on above: Order Comment: [facility] has implemented the eGFR calculation approach that does not have a coefficient for race that conforms to the NKF-ASN Task Force Recommendations. Performed By: #### 4 6953 #### LAB [address] [address] Suraj Gamez M.D. [id number] HCO3 (Bld) [Moles/Vol] 31 mmol/L Normal 21-32 [facility] Comment on above: Order Comment: [facility] has implemented the eGFR calculation approach that does not have a coefficient for race that conforms to the NKF-ASN Task Force Recommendations. Performed By: #### 4 6953 #### LAB [address] [address] Suraj Gamez M.D. [id number] Potassium [Moles/Vol] 4.2 mmol/L Normal 3.5-5.1 [facility] Comment on above: Order Comment: [facility] has implemented the eGFR calculation approach that does not have a coefficient for race that conforms to the NKF-ASN Task Force Recommendations. Performed By: #### 4 6953 ####[facility] [address] [place], [place] [address] Suraj Gamez M.D. [id number] Sodium [Moles/Vol] 140 mmol/L Normal 135-145 [facility] Comment on above: Order Comment: [facility] has implemented the eGFR calculation approach that does not have a coefficient for race that conforms to the NKF-ASN Task Force Recommendations. Performed By: #### 4 6953 ####[facility] [address] [place], [place] [address] Suraj Gamez M.D. [id number] Urea nitrogen [Mass/Vol] 31 mg/dL High 8-25 [facility] Comment on above: Order Comment: [facility] has implemented the eGFR calculation approach that does not have a coefficient for race that conforms to the NKF-ASN Task Force Recommendations. Performed By: #### 4 6953 #### LAB [address] [place], [place] [address] Suraj Gamez M.D. [id number] Urea nitrogen/Creatinine [Mass ratio] 26.1 mg/mg High 10.0-20.0 [facility] Comment on above: Order Comment: [facility] has implemented the eGFR calculation approach that does not have a coefficient for race that conforms to the NKF-ASN Task Force Recommendations. Performed By: #### 4 6953 #### LAB [address] [place], [place] [address] Suraj Gamez M.D. [id number] CONSULTon 06-26-2024 CONSULT General Cardiology Inpatient Cardiology Consult Note Heart & Vascular [facility] 06/23/2024 Marci Roger MD [address] [facility] [id number] CARDIOLOGY CONSULT NOTE Patient Name: Dyllan Huertas Admit Date: [id number] MR #: [id number] : 1960 Physicians: Jace Reeder DO (Family) Kindly asked to evaluate Dyllan Huertas for chief complaint of Reduced EF; Potential for amputation of 2nd toe; . ASSESSMENT and PLAN: Hx of systolic heart failure Hx of coronary artery disease 3. Preoperative evaluation Patient's perioperative risk of adverse cardiovascular events is 1.1% per current Escalante score given medical comorbidities At this time he does not have any active contraindications to proposed procedure. Agree with diuresis for volume management, but he is not actively in heart failure EKG has been reviewed, no evidence of acute coronary syndrome Would recommend continue perioperative beta-blockade, as well as aspirin given history of coronary artery disease and CABG He follows with Dr. 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 Please see assessment and plan for further details. Thank you for this interesting clinical case. We will continue to follow along unless otherwise noted. Marci Roger MD, [facility] Cardiovascular Medicine [facility] History of Present Illness: This is a 63-year-old gentleman with a past medical history of coronary artery disease status post remote CABG, diabetes, hypertension, peripheral vascular disease who presents for osteomyelitis. Cardiology is asked to comment on preoperative evaluation prior to potential toe amputation. Patient denies any orthopnea paroxysmal nocturnal dyspnea, no dyspnea on exertion with typical activity, no lower extremity edema or abdominal fullness. Follows with Dr. Dailey outpatient Objective History: Past Medical History: Diagnosis Date Acquired equinus deformity of right foot Acquired hammer toe of right foot Angina pectoris with documented spasm (HCC) Calluse Cellulitis of left toe Charcot's joint, right ankle and foot Chronic osteomyelitis with draining sinus, right ankle and foot ([facility]) Complication of external fixation device with internal components ([facility]) Coronary artery disease Dehiscence of incision Diabetes mellitus, type 2 ([facility]) Dystrophic nail Edema Effusion of ankle and foot joint Fracture of metatarsal, closed Fungal toenail infection Hyperlipidemia Hypertension Hypothyroidism 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 ([facility]) Non-pressure chronic ulcer of other part of left foot limited to breakdown of skin ([facility]) Non-pressure chronic ulcer of other part of right foot with fat layer exposed ([facility]) limited to breakdown of skin Obesity Overflow incontinence Peripheral neuropathy Pressure ulcer of right foot, stage 2 ([facility]) S/P foot surgery, right 12/09/2019 11/20/2019Right foot reconstruction surgery with external fixation 12/02/2019 Right foot I and D Sleep apnea, obstructive does not use CPAP Tibia/fibula fracture Past Surgical History: Procedure Laterality Date APPENDECTOMY ARTHRODESIS SUBTALAR Right 05/01/2020 Procedure: RIGHT ANKLE ARTHRODESIS, SUBTALAR ARTHRODESIS RIGHT ANKLE, Bone [place] Graft From Right Fibula, Application of Splint; Surgeon: Alena Mora DPM; Location: Main OR; Service: Podiatry ARTHROPLASTY TOE Right 01/25/2019 Procedure: ARTHROPLASTY 2ND TOE RIGHT FOOT; Surgeon: Rosa M Robles DPM; Location: [facility]; Service: Podiatry CABG 2017 CARDIAC SURGERY 2017 CABG tripe bypass CLOSED REDUCTION PERCUTANEOUS PINNING LOWER EXTREMITY N/A 12/02/2019 Procedure: ADJUSTMENT of EXTERNAL FIXATOR; Surgeon: Alena Mora DPM; Location: Main OR; Service: Podiatry CT COLONOSCOPY 02/24/[address] COLONOSCOPY 03/21/2023 CT COLONOSCOPY CYST REMOVED FROM CHEST N/A INCISION AND DRAINAGE FOOT AND ANKLE Right 12/02/2019 Procedure: RIGHT FOOT I&D; Surgeon: Alena Mora DPM; Location: Main OR; Service: Podiatry LIPOSUCTION METAL IN LEFT LEFT WRIST AND LEFT 5TH TOE Left ORIF FOOT FRACTURE Left 07/03/2013 5th metatarsal ORTHOPEDIC SURGERY RECONSTRUCTION FOOT CHARCOT Right 11/20/2019 Procedure: RIGHT FOOT RECONSTRUCTION WITH APPLICATION OF CIRCULAR STATIC EXTERNAL FIXATION; Surgeon: Alena Mora DPM; Location: Main OR; Service: Podiatry RT FOOT SURGERY Right SHARMILA JEONG N/A Family History Problem Relation Age of Onset Heart disease Mother Diabet (more content not included)... Normal [facility] CONSULT -- Attestation signed by Joao Cruz MD at 06/26/2024 5:04 PM I have discussed the patient with the midlevel provider, reviewed the relevant imaging & labs, reviewed the note & concur with the documentation of Dyllan Huertas by Claudette Rosario DNP Scrotal swelling with acquired / circumstantial buried penis. Continue Schulte during diuresis. Continue Flomax & Proscar. Void trial prior to discharge. Outpatient followup with his established urologist. Joao Cruz MD [facility] 5:03 PM 06/26/24 UROLOGY CONSULT NOTE DATE: 06/26/2024 ASSESSMENT / PLAN: Dyllan Huertas is a 63 y.o. male with the following active problem list and plan 1. Scrotal swelling Dyllan Huretas is a 63 y.o. male patient of Jace Reeder DO with history of IDDM2 with neuropathy, toe ulcer, CAD, HTN, HLD, hypothyroidism, JAYDEN, obesity, who presented to [facility] on 06/23/2024 with left toe ulcer. Urology consulted for scrotal swelling. Patient endorses scrotal swelling and bilateral leg swelling for which he sought care in the ED on June 09. He was given 5 days of Lasix. He does have history of CHF. At the time of admission his scrotum was very swollen, but the patient states that the leg and scrotal swelling has much improved since he has been getting diuretics. Currently has schulte catheter which was placed by nursing. He denies issues emptying the bladder prior to admission, he stated that he was having issues with knowing where the urine was going as he couldn't aim it due to the scrotal swelling. Follows with Dr izquierdo outpatient ,takes Flomax and Proscar. DISPOSITION: Recommended Plan of Care: Continue schulte while being diuresed. Remove schulte prior to discharge for voiding trial. Continue Flomax and Proscar. Follow-up: patient can follow up with established urologist Dr Izquierdo. Thank you for the consult. Please call with questions or to discuss. Claudette Rosario DNP [facility] ASSESSMENT / ENCOUNTER DETAILS: ------ REASON FOR CONSULT: scrotal swelling, has urinary incon issues, may require schulte ? Nursing to place. HISTORY OF PRESENT ILLNESS: Dyllan Huertas is a 63 y.o. male patient of Jace Reeder DO with history of IDDM2 with neuropathy, toe ulcer, CAD, HTN, HLD, hypothyroidism, JAYDEN, obesity, who presented to [facility] on 06/23/2024 with left toe ulcer. Past medical history significant for: none other than scrotal swelling Recent medical issues include: as above Urinary: The patient denies urinary retention, dysuria, frequency, urgency, hematuria, or incontinence in the recent past. Systemic:The patient denies any weight loss, malaise, fatigue, pain, or night sweats. HISTORY: Past Medical History: Diagnosis Date Acquired equinus deformity of right foot Acquired hammer toe of right foot Angina pectoris with documented spasm ([facility]) Calluse Cellulitis of left toe Charcot's joint, right ankle and foot Chronic osteomyelitis with draining sinus, right ankle and foot (HCC) Complication of external fixation device with internal components ([facility]) Coronary artery disease Dehiscence of incision Diabetes mellitus, type 2 ([facility]) Dystrophic nail Edema Effusion of ankle and foot joint Fracture of metatarsal, closed Fungal toenail infection Hyperlipidemia Hypertension Hypothyroidism 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 ([facility]) Non-pressure chronic ulcer of other part of left foot limited to breakdown of skin (HCC) Non-pressure chronic ulcer of other part of right foot with fat layer exposed ([facility]) limited to breakdown of skin Obesity Overflow incontinence Peripheral neuropathy Pressure ulcer of right foot, stage 2 ([facility]) S/P foot surgery, right 12/09/2019 11/20/2019Right foot reconstruction surgery with external fixation 12/02/2019 Right foot I and D Sleep apnea, obstructive does not use CPAP Tibia/fibula fracture Past Surgical History: Procedure Laterality Date APPENDECTOMY ARTHRODESIS SUBTALAR Right 05/01/2020 Procedure: RIGHT ANKLE ARTHRODESIS, SUBTALAR ARTHRODESIS RIGHT ANKLE, Bone [place] Graft From Right Fibula, Application of Splint; Surgeon: Alena Mora DPM; Location: Main OR; Service: Podiatry ARTHROPLASTY TOE Right 01/25/2019 Procedure: ARTHROPLASTY 2ND TOE RIGHT FOOT; Surgeon: Rosa M Robles DPM; Location: [facility] [place]; Service: Podiatry CABG 2017 CARDIAC SURGERY 2017 CABG tripe bypass CLOSED REDUCTION PERCUTANEOUS PINNING LOWER EXTREMITY N/A 12/02/2019 Procedure: ADJUSTMENT of EXTERNAL FIXATOR; Surgeon: Alena Mora DPM; Location: Main OR; Service: Podiatry CT COL (more content not included)... Normal [facility] CONSULT -- Attestation signed by Sotero Hendrix MD at 06/27/2024 2:56 PM I attest to Alessandro's evaluation, reviewed medical record and radiological findings, and also labs, discussed extensively with nurse practitioner management plan. And also examination. Patient was presented with lower extremity wounds, known with history of coronary artery disease, coronary artery bypass graft in the past, and also reconstructive surgery with right foot ulceration. Had been followed by us previously. Second toe has been having some ulceration that is nonhealing. Had an MRI that showed osteomyelitis of the left second toe. Patient with left second toe osteomyelitis Patient with second toe nonhealing wound Continue patient on current therapy Patient on IV cefepime Patient wound had shown Enterobacter Patient with MRI showing osteomyelitis of the second distal phalanx Podiatry may be scheduling for amputation Follow-up wound cultures Will continue to follow with you. Patient Name: Dyllan Huertas Admit Date: [id number] MR #: [id number] : 1960 Physicians: Jace Reeder DO (Family); No ref. provider found (Referring) Chief complaint: Bilateral lower extremity ulceration. History: Dyllan is a 63-year-old male with past medical history significant for hematoma of the right foot, angina pectoris, coronary artery disease with s/p CABG 2 bypass in 2016, hypertension and hypothyroidism, history of right foot ulceration with s/p right foot reconstruction surgery with external physician on 11/20/2019 and right foot I&D on 12/02/2019. Also with metal in his left wrist and left fifth toe due to foot fracture June 2013. Has diabetes and neuropathy... Known to ID unit and was seen last by Dr. Hendrix in November 2019 for right foot infection and ulceration with Enterobacter, and was treated with IV cefazolin. She was at podiatry office on 06/23/2024 for follow-up due to worsening bilateral lower extremity edema, ulceration and scrotal edema and was referred for admission. Podiatry followed up in hospital on 06/24/2024 and patient is status post sharp excisional debridement of the second toe and first first metatarsal of the left foot. Yesterday MRI showed left second toe osteomyelitis of the distal phalanx and may be scheduled for partial second toe amputation left foot. Patient had denied any history of fever or chills, no nausea no vomiting and no diarrhea. Wound culture showed growth of Enterobacter cloacae complex. MRI left foot showed osteomyelitis involving the second distal phalanx, particularly at the tuft. And edema along the second toe suggesting a cellulitis, but no abscess was identified. Patient has been placed on IV cefepime. Current evaluation is for left second toe ulceration, osteomyelitis, previous right lower extremity ulceration, diabetic neuropathy and antibiotics management. ROS: Constitutional: Negative for fatigue, change in appetite, chills and fever. HENT: Negative for congestion and rhinorrhea. Negative for ear pain, sore throat. Eyes: Negative for pain and redness. Respiratory: Negative for cough and shortness of breath. Cardiovascular: Negative for chest pain and palpitations. Gastrointestinal: Negative for abdominal pain, constipation, diarrhea, nausea and vomiting. Genitourinary: Negative for difficulty urinating, dysuria, frequency, hesitancy, flank pain Musculoskeletal: Negative for back pain, neck pain and neck stiffness. Skin: Negative for color change and rash. Neurological: Negative for lightheadedness, dizziness, syncope, weakness and headaches. Psychiatric/Behavioral : Negative for confusion, hallucinations and suicidal ideas. Positives and pertinent negatives as per HPI. Past Medical History: Diagnosis Date Acquired equinus deformity of right foot Acquired hammer toe of right foot Angina pectoris with documented spasm ([facility]) Calluse Cellulitis of left toe Charcot's joint, right ankle and foot Chronic osteomyelitis with draining sinus, right ankle and foot ([facility]) Complication of external fixation device with internal components (HCC) Coronary artery disease Dehiscence of incision Diabetes mellitus, type 2 ([facility]) Dystrophic nail Edema Effusion of ankle and foot joint Fracture of metatarsal, closed Fungal toenail infection Hyperlipidemia Hypertension Hypothyroidism 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) Non-pressure chronic ulcer of other part of left foot limited to breakdown of skin (HCC) Non-pressure chronic ulcer of other part of right foot with fat layer exposed ([facility]) limited to breakdown of skin Obesity Overflow incontinence Peripheral neuropathy Pressure ulcer of right foot, stage 2 ([facility]) S/P foot surgery, ri (more content not included)... Normal [facility] POC GLUCOSE - [place] 024 Glucose [Mass/Vol] 208 mg/dL High 65-99 [facility] Comment on above: Performed By: #### 4 [id number] #### [address] [place], [place] [address] Suraj Gamez M.D. [id number] Glucose [Mass/Vol] 276 mg/dL High [address] [place] [address] Comment on above: Performed By: #### 4 [id number] #### LAB [address] [place] [id number] Suraj Gamez M.D. [id number] Glucose [Mass/Vol] 327 mg/dL High [address] [place] [address] Comment on above: Performed By: #### 4 [id number] #### LAB [address] [place] [id number] Suraj Gamez M.D. [id number] Glucose [Mass/Vol] 219 mg/dL [address] Comment on above: Performed By: #### 4 [id number] #### [address] [place] [address] Suraj Gamez M.D. [id number] US ANKLE/BRACHIAL INDICES EX TREMITY LIMITEDon 06-26-2024 US ANKLE/BRACHIAL INDICES EXTREMITY LIMITED Patient Info Name: DYLLAN HUERTAS Age: 63 years : 1960 Gender: Male Exam Date: 06/26/2024 8:01 AM Patient Status: Inpatient Requirements Manager: HILARY PASCUAL Noam Referring Physician: Rosa M Robles; Indications - non healing wounds left foot. I73.9 - Peripheral vascular disease, unspecified Procedure Description 98658 Limited bilateral noninvasive physiologic studies of upper or lower extremity arteries with bidirectional Doppler/PVR waveform analysis at 1-2 levels. Conclusions * Right and left ankle brachial indices are normal. Right RAJINDER is 1.19. Left RAJINDER is 1.24. * No evidence of small vessel disease at the transmetatarsal level in both feet. * Right toe brachial index is abnormal. However, digit waveforms are normal. * Left toe brachial index is normal. Recommendations * Normal triphasic waveforms with normal perfusion pressures at the level of both ankles indicating a normal bilateral lower extremity resting arterial perfusion. No indication for any additional lower extremity resting perfusion studies at this time. . Doppler Rt Posterior Tibial: Triphasic Rt Dorsalis Pedis: Triphasic Lt Posterior Tibial: Triphasic Lt Dorsalis Pedis: Triphasic PVR Rt Ankle: Normal Lt Ankle: Normal Rt Digit: Normal Lt Digit: Normal Rt Brachial: 139 Rt Posterior Tibial: 166 Rt Dorsalis Pedis: 138 Rt Digit: 88 1.19 0.99 0.63 Lt Brachial: 135 Lt Posterior Tibial: 151 Lt Dorsalis Pedis: 173 Lt Digit: 101 1.09 1.24 0.73 Risk Factors Patient has a history of hypertension, hyperlipidemia, diabetes, CAD and obesity. . Report Signatures Finalized by Gomez Benitez MD on 06/26/2024 11:54 AM Normal [facility] Comment on above: Order Comment: RAJINDER l ower with wave forms of digits isela CBCon 06-25-2024 AUTO NRBC 0.0 % Normal [facility] Comment on above: Performed By: #### 4 [id number] #### [address] [place] [address] Suraj Gamez M.D. [id number] AUTO NRBC ABS COUNT 0.00 K/mcL Normal 0.00-0.00 [facility] Comment on above: Performed By: #### 4 [id number] #### [address] [place] [address] Suraj Gamez M.D. [id number] Erythrocyte distribution width (RBC) [Ratio] 13.5 % Normal 11.6-14.8 [facility] Comment on above: Performed By: #### 4 [id number] #### [address] [place] [address] Suraj Gamez M.D. [id number] Hematocrit (Bld) [Volume fraction] 34.2 % Low 41.0-53.0 [facility] Comment on above: Performed By: #### 4 [id number] #### [address] [place] [address] Suraj Gamez M.D. [id number] Hemoglobin (Bld) [Mass/Vol] 10.3 g/dL Low 13.5-17.5 [facility] Comment on above: Performed By: #### 4 [id number] #### [address] [place] [address] Suraj Gamez M.D. [id number] MCH (RBC) [Entitic mass] 27.3 pg Normal 26.0-34.0 [facility] Comment on above: Performed By: #### 4 [id number] #### [address] [place] [address] Suraj Gamez M.D. [id number] MCV (RBC) [Entitic vol] 90.7 fL Normal 80.0-100.0 [facility] Comment on above: Performed By: #### 4 [id number] #### [address] [place] [address] Suraj Gamez M.D. [id number] MEAN CORPUSCULAR HEMOGLOBIN CONC 30.1 g/dL Low 31.0-37.0 [facility] Comment on above: Performed By: #### 4 [id number] #### [address] [place] [address] Suraj Gamez M.D. [id number] Platelet mean volume (Bld) [Entitic vol] 11.1 fL Normal 9.4-12.4 [facility] Comment on above: Performed By: #### 4 [id number] #### [address] [place] [address] Suraj Gamez M.D. [id number] Platelets (Bld) [#/Vol] 172 10*3/uL Normal 150-400 [facility] Comment on above: Performed By: #### 4 [id number] #### [address] [place] [address] Suraj Gamez M.D. [id number] RBC (Bld) [#/Vol] 3.77 10*6/uL Low 4.50-5.90 [facility] Comment on above: Performed By: #### 4 [id number] #### [address] [place] [address] Suraj Gamez M.D. [id number] WBC (Bld) [#/Vol] 4.90 10*3/uL Normal 4.50-11.00 [facility] Comment on above: Performed By: #### 4 [id number] #### LAB [address] [place], [place] [address] Suraj Gamez M.D. [id number] CHEM 7on 06-25-2024 Anion gap [Moles/Vol] 14 mmol/L Normal 10-20 [facility] Comment on above: Order Comment: [facility] has implemented the eGFR calculation approach that does not have a coefficient for race that conforms to the NKF-ASN Task Force Recommendations. Performed By: #### 4 6953 #### [address] [place], [place] [address] Suraj Gamez M.D. [id number] Chloride [Moles/Vol] 103 mmol/L Normal 98-108 [facility] Comment on above: Order Comment: [facility] has implemented the eGFR calculation approach that does not have a coefficient for race that conforms to the NKF-ASN Task Force Recommendations. Performed By: #### 4 6953 #### [address] [place], [place] [address] Suraj Gamez M.D. [id number] Creatinine [Mass/Vol] 1.25 mg/dL Normal 0.80-1.30 [facility] Comment on above: Order Comment: [facility] has implemented the eGFR calculation approach that does not have a coefficient for race that conforms to the NKF-ASN Task Force Recommendations. Performed By: #### 4 6953 #### [address] [place], [place] [address] Suraj Gamez M.D. [id number] EGFR 66 mL/min/1.73 m2 Normal >=60 [facility] Comment on above: Order Comment: [facility] has implemented the eGFR calculation approach that does not have a coefficient for race that conforms to the NKF-ASN Task Force Recommendations. Result Comment: Dorothea mated GFR was calculated using the 2020 CKD-EPI creatinine equation. Performed By: #### 4 6953 #### [address] [place] [address] Suraj Gamez M.D. [id number] Glucose [Mass/Vol] 167 mg/dL High 65-99 [facility] Comment on above: Order Comment: [facility] has implemented the eGFR calculation approach that does not have a coefficient for race that conforms to the NKF-ASN Task Force Recommendations. Performed By: #### 4 6953 #### [address] [place] [address] Suraj Gamez M.D. [id number] HCO3 (Bld) [Moles/Vol] 30 mmol/L Normal 21-32 [facility] Comment on above: Order Comment: [facility] has implemented the eGFR calculation approach that does not have a coefficient for race that conforms to the NKF-ASN Task Force Recommendations. Performed By: #### 4 6953 ####[facility] LAB [address] [place] [address] Suraj Gamez M.D. [id number] Potassium [Moles/Vol] 4.2 mmol/L Normal 3.5-5.1 [facility] Comment on above: Order Comment: [facility] has implemented the eGFR calculation approach that does not have a coefficient for race that conforms to the NKF-ASN Task Force Recommendations. Performed By: #### 4 6953 #### [address] [place] [address] Suraj Gamez M.D. [id number] Sodium [Moles/Vol] 143 mmol/L Normal 135-145 [facility] Comment on above: Order Comment: [facility] has implemented the eGFR calculation approach that does not have a coefficient for race that conforms to the NKF-ASN Task Force Recommendations. Performed By: #### 4 6953 ####[facility] [address] [place] [address] Suraj Gamez M.D. [id number] Urea nitrogen [Mass/Vol] 31 mg/dL High 8-25 [facility] Comment on above: Order Comment: [facility] has implemented the eGFR calculation approach that does not have a coefficient for race that conforms to the NKF-ASN Task Force Recommendations. Performed By: #### 4 6953 #### [address] [place] [address] Suraj Gamez M.D. [id number] Urea nitrogen/Creatinine [Mass ratio] 24.8 mg/mg High 10.0-20.0 [facility] Comment on above: Order Comment: [facility] has implemented the eGFR calculation approach that does not have a coefficient for race that conforms to the NKF-ASN Task Force Recommendations. Performed By: #### 4 6953 #### [address] [place] [address] Suraj Gamez M.D. [id number] POC GLUCOSE [facility] 024 Glucose [Mass/Vol] 266 mg/dL High [address] [place] [address] Comment on above: Performed By: #### 4 6932 ####[facility] [address] [place] [address] Suraj Gamez M.D. [id number] Glucose [Mass/Vol] 225 mg/dL High [address] [place] [address] Comment on above: Performed By: #### 4 6932 ####[facility] [address] [place] [address] Suraj Gamez M.D. [id number] Glucose [Mass/Vol] 240 mg/dL [address] Comment on above: Performed By: #### 4 6932 #### [address] [place] [address] Suraj Gamez M.D. [id number] Glucose [Mass/Vol] 180 mg/dL High [address] [place] [address] Comment on above: Performed By: #### 4 6904 ####[facility] [address] [place] [address] Suraj Gamez M.D. [id number] Wound Aerobic CultureOrdered By: Dale Tomlinson on 06-25-2024 Bacteria identified Aer cx Nom (Wound) Rare growth Enterobacter cloacae complex Abnormal [facility] Bacteria identified Aer cx Nom (Wound) Light Growth Normal Skin Chalino [facility] Interpretation and review of laboratory results Abnormal [facility] Microscopic observation Gram stain Nom (Wound) No WBC Seen [facility] Microscopic observation Gram stain Nom (Wound) No Organisms Seen [facility] BASIC METABOLIC PANELon 09 Anion gap [Moles/Vol] 14 mmol/L Normal 10-20 [facility] Comment on above: Order Comment: [facility] has implemented the eGFR calculation approach that does not have a coefficient for race that conforms to the NKF-ASN Task Force Recommendations. Performed By: #### 4 6124 #### [address] [place] [address] Suraj Gamez M.D. [id number] Calcium [Mass/Vol] 8.9 mg/dL Normal 8.4-10.2 [facility] Comment on above: Order Comment: [facility] has implemented the eGFR calculation approach that does not have a coefficient for race that conforms to the NKF-ASN Task Force Recommendations. Performed By: #### 4 6124 #### LAB [address] [place] [address] Suraj Gamez M.D. [id number] Chloride [Moles/Vol] 106 mmol/L Normal 98-108 [facility] Comment on above: Order Comment: [facility] has implemented the eGFR calculation approach that does not have a coefficient for race that conforms to the NKF-ASN Task Force Recommendations. Performed By: #### 4 6124 #### [address] [place] [address] Suraj Gamez M.D. [id number] Creatinine [Mass/Vol] 1.25 mg/dL Normal 0.80-1.30 [facility] Comment on above: Order Comment: [facility] has implemented the eGFR calculation approach that does not have a coefficient for race that conforms to the NKF-ASN Task Force Recommendations. Performed By: #### 4 6124 #### [address] [place] [address] Suraj Gamez M.D. [id number] EGFR 66 mL/min/1.73 m2 Normal >=60 [facility] Comment on above: Order Comment: [facility] has implemented the eGFR calculation approach that does not have a coefficient for race that conforms to the NKF-ASN Task Force Recommendations. Result Comment: Dorothea mated GFR was calculated using the 2020 CKD-EPI creatinine equation. Performed By: #### 4 6124 #### [address] [place] [address] Suraj Gamez M.D. [id number] Glucose [Mass/Vol] 106 mg/dL High 65-99 [facility] Comment on above: Order Comment: [facility] has implemented the eGFR calculation approach that does not have a coefficient for race that conforms to the NKF-ASN Task Force Recommendations. Performed By: #### 4 6124 #### [address] [place] [address] Suraj Gamez M.D. [id number] HCO3 (Bld) [Moles/Vol] 25 mmol/L Normal 21-32 [facility] Comment on above: Order Comment: [facility] has implemented the eGFR calculation approach that does not have a coefficient for race that conforms to the NKF-ASN Task Force Recommendations. Performed By: #### 4 6152 #### [address] [place] [address] Suraj Gamez M.D. [id number] Potassium [Moles/Vol] 4.1 mmol/L Normal 3.5-5.1 [facility] Comment on above: Order Comment: [facility] has implemented the eGFR calculation approach that does not have a coefficient for race that conforms to the NKF-ASN Task Force Recommendations. Performed By: #### 4 6187 #### [address] [place] [address] Suraj Gamez M.D. [id number] Sodium [Moles/Vol] 141 mmol/L Normal 135-145 [facility] Comment on above: Order Comment: [facility] has implemented the eGFR calculation approach that does not have a coefficient for race that conforms to the NKF-ASN Task Force Recommendations. Performed By: #### 4 6124 #### [address] [place] [address] Suraj Gamez M.D. [id number] Urea nitrogen [Mass/Vol] 32 mg/dL High 8-25 [facility] Comment on above: Order Comment: [facility] has implemented the eGFR calculation approach that does not have a coefficient for race that conforms to the NKF-ASN Task Force Recommendations. Performed By: #### 4 6124 #### [address] [place] [address] Suraj Gamez M.D. [id number] Urea nitrogen/Creatinine [Mass ratio] 25.6 mg/mg High 10.0-20.0 [facility] Comment on above: Order Comment: [facility] has implemented the eGFR calculation approach that does not have a coefficient for race that conforms to the NKF-ASN Task Force Recommendations. Performed By: #### 4 6124 #### [address] [place] [address] Suraj Gamez M.D. [id number] CBCon 06-24-2024 AUTO NRBC 0.0 % Normal [facility] Comment on above: Performed By: #### 4 [id number] #### [address] [place] [address] Suraj Gamez M.D. [id number] AUTO NRBC ABS COUNT 0.00 K/mcL Normal 0.00-0.00 [facility] Comment on above: Performed By: #### 4 [id number] #### [address] [place] [address] Suraj Gamez M.D. [id number] Erythrocyte distribution width (RBC) [Ratio] 13.5 % Normal 11.6-14.8 [facility] Comment on above: Performed By: #### 4 5218 #### [address] [place] [address] Suraj Gamez M.D. [id number] Hematocrit (Bld) [Volume fraction] 32.3 % Low 41.0-53.0 [facility] Comment on above: Performed By: #### 4 5218 #### [address] [place] [address] Suraj Gamez M.D. [id number] Hemoglobin (Bld) [Mass/Vol] 9.9 g/dL Low 13.5-17.5 [facility] Comment on above: Performed By: #### 4 5218 #### [address] [place] [address] Suraj Gamez M.D. [id number] MCH (RBC) [Entitic mass] 27.8 pg Normal 26.0-34.0 [facility] Comment on above: Performed By: #### 4 5218 #### [address] [place] [address] Suraj Gamez M.D. [id number] MCV (RBC) [Entitic vol] 90.7 fL Normal 80.0-100.0 [facility] Comment on above: Performed By: #### 4 5218 #### [address] [place] [address] Suraj Gamez M.D. [id number] MEAN CORPUSCULAR HEMOGLOBIN CONC 30.7 g/dL Low 31.0-37.0 [facility] Comment on above: Performed By: #### 4 5218 #### [address] [place] [address] Suraj Gamez M.D. [id number] Platelet mean volume (Bld) [Entitic vol] 10.8 fL Normal 9.4-12.4 [facility] Comment on above: Performed By: #### 4 5218 #### [address] [place] [address] Suraj Gamez M.D. [id number] Platelets (Bld) [#/Vol] 194 10*3/uL Normal 150-400 [facility] Comment on above: Performed By: #### 4 5218 #### [address] [place] [address] Suraj Gamez M.D. [id number] RBC (Bld) [#/Vol] 3.56 10*6/uL Low 4.50-5.90 [facility] Comment on above: Performed By: #### 4 5218 #### [address] [place], [place] [address] Suraj Gamez M.D. [id number] WBC (Bld) [#/Vol] 5.43 10*3/uL Normal 4.50-11.00 [facility] Comment on above: Performed By: #### 4 [id number] #### [address] [place], [place] [address] Suraj Gamez M.D. [id number] CONSULTon 06-24-2024 CONSULT Podiatry Inpatient Consult 06/24/2024 Rosa M Robles, [facility] Patient: Dyllan Huertas Date of : 1960 (63 y.o.) Referring Provider: Refer to consult order in electronic medical record PCP: Jace Reeder, ASSESSMENT/PLAN: Dyllan Huertas 63 y.o. male with his infected diabetic neuropathic second toe and forefoot ulcers. History of cellulitis and venous insufficiency both lower legs and feet. Contracted second hammertoe left foot Plan: MRI of left foot ordered to rule out osteomyelitis or abscess of second toe. X-rays left foot were negative for soft tissue emphysema or osteomyelitis. I consented patient to a bedside sharp debridement of left foot wounds. Please see procedure note. Culture of freshly debrided second toe ulceration of the left foot obtained Apply Xeroform dry sterile dressing to wounds on left foot daily Right both lower extremities with Zechariah bandages to control swelling. Depending on MRI results patient may need 4 to 6 weeks of IV antibiotics or second toe amputation if osteomyelitis is detected in the left foot. No new Assessment & Plan notes have been filed under this hospital service since the last note was generated. Service: Podiatry SUBJECTIVE: Chief Complaint/Reason for Visit: Patient 63-year-old male who is well-known to our office who developed a wound on the tip of the second toe on the left foot in the last 30 days. Patient has a history of type 2 diabetes and venous insufficiency of his lower extremities. Patient has dealt with cellulitis and wounds off and on over the years. History of Present Illness: Dyllan Huertas is a 63 y.o. male presenting from office with complaint of infected second toe ulceration left foot. Patient saw my partner earlier in the week who had patient advised for cellulitis of the second toe to be treated with IV antibiotics. Patient has had x-rays which were negative for soft tissue emphysema or osteomyelitis. Patient is tolerating his IV antibiotics well and denies nausea vomiting fevers or chills. Review of Systems: Past Medical History: Diagnosis Date Acquired equinus deformity of right foot Acquired hammer toe of right foot Angina pectoris with documented spasm ([facility]) Calluse Cellulitis of left toe Charcot's joint, right ankle and foot Chronic osteomyelitis with draining sinus, right ankle and foot ([facility]) Complication of external fixation device with internal components ([facility]) Coronary artery disease Dehiscence of incision Diabetes mellitus, type 2 ([facility]) Dystrophic nail Edema Effusion of ankle and foot joint Fracture of metatarsal, closed Fungal toenail infection Hyperlipidemia Hypertension Hypothyroidism 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 ([facility]) Non-pressure chronic ulcer of other part of left foot limited to breakdown of skin ([facility]) Non-pressure chronic ulcer of other part of right foot with fat layer exposed ([facility]) limited to breakdown of skin Obesity Overflow incontinence Peripheral neuropathy Pressure ulcer of right foot, stage 2 ([facility]) S/P foot surgery, right 12/09/2019 11/20/2019Right foot reconstruction surgery with external fixation 12/02/2019 Right foot I and D Sleep apnea, obstructive does not use CPAP Tibia/fibula fracture Past Surgical History: Procedure Laterality Date APPENDECTOMY ARTHRODESIS SUBTALAR Right 05/01/2020 Procedure: RIGHT ANKLE ARTHRODESIS, SUBTALAR ARTHRODESIS RIGHT ANKLE, Bone [place] Graft From Right Fibula, Application of Splint; Surgeon: Alena Mora DPM; Location: Main OR; Service: Podiatry ARTHROPLASTY TOE Right 01/25/2019 Procedure: ARTHROPLASTY 2ND TOE RIGHT FOOT; Surgeon: Rosa M Robles DPM; Location: [facility] [place] [facility]; Service: Podiatry CABG 2017 CARDIAC SURGERY 2017 CABG tripe bypass CLOSED REDUCTION PERCUTANEOUS PINNING LOWER EXTREMITY N/A 12/02/2019 Procedure: ADJUSTMENT of EXTERNAL FIXATOR; Surgeon: Alena Mora DPM; Location: Main OR; Service: Podiatry CT COLONOSCOPY 02/24/[address] COLONOSCOPY 03/21/2023 CT COLONOSCOPY CYST REMOVED FROM CHEST N/A INCISION AND DRAINAGE FOOT AND ANKLE Right 12/02/2019 Procedure: RIGHT FOOT I&D; Surgeon: Alena Mora DPM; Location: Main OR; Service: Podiatry LIPOSUCTION METAL IN LEFT LEFT WRIST AND LEFT 5TH TOE Left ORIF FOOT FRACTURE Left 07/03/2013 5th metatarsal ORTHOPEDIC SURGERY RECONSTRUCTION FOOT CHARCOT Right 11/20/2019 Procedure: RIGHT FOOT RECONSTRUCTION WITH APPLICATION OF CIRCULAR STATIC EXTERNAL FIXATION; Surgeon: Alena Mora DPM; Location: Main OR; Service: Podiatry RT FOOT SURGERY Right SHARMILA JEONG N/A Family History Problem Relation Age of Onset Heart disease Mother Diabetes Mother Heart disease Father Diabetes Father Parkinson's Father Diabetes Sister Heart disease Brother Hypertension Brother Other Cancer Brother Bypass Social Histor (more content not included)... Normal [facility] MRSA DNA AMPLIFIED PROBEon 0 06-24-2024 MRSA DNA AMPLIFIED PROBE Negative Normal Not Detected, MRSA NEGATIVE [facility] Comment on above: Performed By: #### 4 [id number] #### LAB [address] [address] Suraj Gamez M.D. [id number] POC GLUCOSE [facility] 024 Glucose [Mass/Vol] 205 mg/dL [address] Comment on above: Performed By: #### 4 6915 #### LAB [address] [address] Suraj Gamez M.D. [id number] Glucose [Mass/Vol] 174 mg/dL [address] Comment on above: Performed By: #### 4 9615 #### LAB [address] [id number] Suraj Gamez M.D. [id number] Glucose [Mass/Vol] 144 mg/dL [address] Comment on above: Performed By: #### 4 1560 #### LAB [address] [address] Suraj Gamez M.D. [id number] Glucose [Mass/Vol] 125 mg/dL [address] Comment on above: Performed By: #### 4 0164 #### LAB [address] [address] Suraj Gamez M.D. [id number] WOUND AEROBIC CULTUREon 06-05 WOUND AEROBIC CULTURE AEROBIC CULTURE Few Growth Normal Skin Chalino GRAM STAIN RESULT No Organisms Seen Rare WBC Many RBC Normal [facility] Comment on above: Performed By: #### 4 6932 #### LAB [address] [address] Suraj Gamez M.D. [id number] APTTon 06-23-2023 aPTT Coag (Bld) [Time] 28 s Normal 23-34 [facility] Comment on above: Order Comment: Thera peutic range for APTT's is 68 - 104 seconds Performed By: #### 4 5113 #### LAB [address] [address] Suraj Gamez M.D. [id number] BASIC METABOLIC PANELon 06-05 Anion gap [Moles/Vol] 15 mmol/L Normal 10-20 [facility] Comment on above: Order Comment: [facility] has implemented the eGFR calculation approach that does not have a coefficient for race that conforms to the NKF-ASN Task Force Recommendations. Performed By: #### 4 6124 #### LAB [address] [address] Suraj Gamez M.D. [id number] Calcium [Mass/Vol] 9.3 mg/dL Normal 8.4-10.2 [facility] Comment on above: Order Comment: [facility] has implemented the eGFR calculation approach that does not have a coefficient for race that conforms to the NKF-ASN Task Force Recommendations. Performed By: #### 4 6124 #### LAB [address] [address] Suraj Gamez M.D. [id number] Chloride [Moles/Vol] 104 mmol/L Normal 98-108 [facility] Comment on above: Order Comment: [facility] has implemented the eGFR calculation approach that does not have a coefficient for race that conforms to the NKF-ASN Task Force Recommendations. Performed By: #### 4 6124 #### LAB [address] [place], [place] [address] Suraj Gamez M.D. [id number] Creatinine [Mass/Vol] 1.18 mg/dL Normal 0.80-1.30 [facility] Comment on above: Order Comment: [facility] has implemented the eGFR calculation approach that does not have a coefficient for race that conforms to the NKF-ASN Task Force Recommendations. Performed By: #### 4 6124 #### LAB [address] [address] Suraj Gamez M.D. [id number] EGFR 70 mL/min/1.73 m2 Normal >=60 [facility] Comment on above: Order Comment: [facility] has implemented the eGFR calculation approach that does not have a coefficient for race that conforms to the NKF-ASN Task Force Recommendations. Result Comment: Dorothea mated GFR was calculated using the 2020 CKD-EPI creatinine equation. Performed By: #### 4 6124 #### LAB [address] [address] Suraj Gamez M.D. [id number] Glucose [Mass/Vol] 241 mg/dL High 65-99 [facility] Comment on above: Order Comment: [facility] has implemented the eGFR calculation approach that does not have a coefficient for race that conforms to the NKF-ASN Task Force Recommendations. Performed By: #### 4 6124 #### LAB [address] [address] Suraj Gamez M.D. [id number] HCO3 (Bld) [Moles/Vol] 26 mmol/L Normal 21-32 [facility] Comment on above: Order Comment: [facility] has implemented the eGFR calculation approach that does not have a coefficient for race that conforms to the NKF-ASN Task Force Recommendations. Performed By: #### 4 6124 #### LAB [address] [address] Suraj Gamez M.D. [id number] Potassium [Moles/Vol] 4.8 mmol/L Normal 3.5-5.1 [facility] Comment on above: Order Comment: [facility] has implemented the eGFR calculation approach that does not have a coefficient for race that conforms to the NKF-ASN Task Force Recommendations. Performed By: #### 4 6124 #### LAB [address] [address] Suraj Gamez M.D. [id number] Sodium [Moles/Vol] 140 mmol/L Normal 135-145 [facility] Comment on above: Order Comment: [facility] has implemented the eGFR calculation approach that does not have a coefficient for race that conforms to the NKF-ASN Task Force Recommendations. Performed By: #### 4 6124 #### LAB [address] [address] Suraj Gamez M.D. [id number] Urea nitrogen [Mass/Vol] 34 mg/dL High 8-25 [facility] Comment on above: Order Comment: [facility] has implemented the eGFR calculation approach that does not have a coefficient for race that conforms to the NKF-ASN Task Force Recommendations. Performed By: #### 4 6124 #### LAB [address] [address] Suraj Gamez M.D. [id number] Urea nitrogen/Creatinine [Mass ratio] 28.8 mg/mg High 10.0-20.0 [facility] Comment on above: Order Comment: [facility] has implemented the eGFR calculation approach that does not have a coefficient for race that conforms to the NKF-ASN Task Force Recommendations. Performed By: #### 4 6124 #### LAB [address] [address] Suraj Gamez M.D. [id number] CBC WITH AUTO DIFFERENTIALon 06-23-2024 AUTO NRBC 0.0 % Normal [facility] Comment on above: Performed By: #### 4 7015 #### LAB [address] [address] Suraj Gamez M.D. [id number] AUTO NRBC ABS COUNT 0.00 K/mcL Normal 0.00-0.00 [facility] Comment on above: Performed By: #### 4 7015 #### LAB [address] [address] Suraj Gamez M.D. [id number] BASOPHILS ABSOLUTE COUNT 0.03 K/mcL Normal 0.00-0.30 [facility] Comment on above: Performed By: #### 4 7015 #### LAB [address] [address] Suraj Gamez M.D. [id number] Basophils/100 WBC (Bld) 0.5 % Normal [facility] Comment on above: Performed By: #### 4 7015 #### LAB [address] [address] Suraj Gamez M.D. [id number] Eosinophils (Bld) [#/Vol] 0.11 10*3/uL Normal 0.00-0.50 [facility] Comment on above: Performed By: #### 4 7015 #### LAB [address] [address] Suraj Gamez M.D. [id number] Eosinophils/100 WBC (Bld) 1.8 % Normal [facility] Comment on above: Performed By: #### 4 7015 #### LAB [address] [address] Suraj Gamez M.D. [id number] Erythrocyte distribution width (RBC) [Ratio] 13.6 % Normal 11.6-14.8 [facility] Comment on above: Performed By: #### 4 7015 #### LAB [address] [address] Suraj Gamez M.D. [id number] Hematocrit (Bld) [Volume fraction] 32.9 % Low 41.0-53.0 [facility] Comment on above: Performed By: #### 4 7015 #### LAB [address] [place] [address] Suraj Gamez M.D. [id number] Hemoglobin (Bld) [Mass/Vol] 10.4 g/dL Low 13.5-17.5 [facility] Comment on above: Performed By: #### 4 7015 #### LAB [address] [address] Suraj Gamez M.D. [id number] IG ABSOLUTE 0.03 K/mcL Normal 0.00-0.30 [facility] Comment on above: Performed By: #### 4 7015 #### LAB [address] [address] Suraj Gamez M.D. [id number] IG PERCENT 0.50 % Normal [facility] Comment on above: Result Comment: The IG parameter is the percentage of metamyelocytes, myelocytes and promyelocytes. An immature granulocyte count (IG) of 1% or more suggests the possibility of infection, an IG count of 3% is very likely related to an infection. Performed By: #### 4 7015 #### LAB [address] [address] Suraj Gamez M.D. [id number] Lymphocytes (Bld) [#/Vol] 0.48 10*3/uL Low 0.90-4.00 [facility] Comment on above: Performed By: #### 4 7015 #### LAB [address] [address] Suraj Gamez M.D. [id number] Lymphocytes/100 WBC (Bld) 7.7 % Normal [facility] Comment on above: Performed By: #### 4 7015 #### LAB [address] [address] Suraj Gamez M.D. [id number] MCH (RBC) [Entitic mass] 28.2 pg Normal 26.0-34.0 [facility] Comment on above: Performed By: #### 4 7008 #### LAB [address] [address] Suraj Gamez M.D. [id number] MCV (RBC) [Entitic vol] 89.2 fL Normal 80.0-100.0 [facility] Comment on above: Performed By: #### 4 7075 #### LAB [address] [address] Suraj Gamez M.D. [id number] MEAN CORPUSCULAR HEMOGLOBIN CONC 31.6 g/dL Normal 31.0-37.0 [facility] Comment on above: Performed By: #### 4 7015 #### LAB [address] [address] Suraj Gamez M.D. [id number] Monocytes (Bld) [#/Vol] 0.63 10*3/uL Normal 0.30-0.90 [facility] Comment on above: Performed By: #### 4 7015 #### LAB [address] [address] Suraj Gamez M.D. [id number] Monocytes/100 WBC (Bld) 10.0 % Normal [facility] Comment on above: Performed By: #### 4 7015 #### LAB [address] [address] Suraj Gamez M.D. [id number] NEUTROPHILS ABSOLUTE COUNT 4.99 K/mcL Normal 1.70-7.00 [facility] Comment on above: Performed By: #### 4 7015 #### LAB [address] [address] Suraj Gamez M.D. [id number] Neutrophils/100 WBC (Bld) 79.5 % Normal [facility] Comment on above: Performed By: #### 4 7015 #### LAB [address] [address] Suraj Gamez M.D. [id number] Platelet mean volume (Bld) [Entitic vol] 10.9 fL Normal 9.4-12.4 [facility] Comment on above: Performed By: #### 4 7015 #### LAB [address] [address] Suraj Gamez M.D. [id number] Platelets (Bld) [#/Vol] 184 10*3/uL Normal 150-400 [facility] Comment on above: Performed By: #### 4 7015 #### [facility] LAB [address] [place], [place] [address] Suraj Gamez M.D. [id number] RBC (Bld) [#/Vol] 3.69 10*6/uL Low 4.50-5.90 [facility] Comment on above: Performed By: #### 4 7015 #### LAB [address] [place], [place] [address] Suraj Gamez M.D. [id number] WBC (Bld) [#/Vol] 6.27 10*3/uL Normal 4.50-11.00 [facility] Comment on above: Performed By: #### 4 7015 #### LAB [address] [place], [place] [address] Suraj Gamez M.D. [id number] CRP, INFLAMMATIONon 06-23-20 24 CRP [Mass/Vol] 11.0 mg/L High 0.0-10.0 [facility] Comment on above: Performed By: #### 4 5334 #### LAB [address] [place], [place] [address] Suraj Gamez M.D. [id number] ECHOCARDIOGRAM COMPLETE W CO NTRASTon 06-23-2024 ECHOCARDIOGRAM COMPLETE W CONTRAST Patient Info Name: DYLLAN HUERTAS Age: 63 years : 1960 Gender: Male Ht: 180 cm Wt: 127 kg BSA: 2.57 m2 HR: 74 bpm BP: 166 / 69 mmHg Heart Rhythm: Sinus Arrhythmia Technical Quality: Poor Exam Date: 06/23/2024 1:40 PM Patient Status: Inpatient Credit Control Administrator: Leland Barrientos RCDS Exam Type: ECHOCARDIOGRAM COMPLETE W CONTRAST Study Info Indications - Other - Dyspnea R06.00 - Dyspnea, unspecified Referring Physician: DIGNA Lora; [id number] BMI: 39.05 kg/m2 Summary 1. Left ventricle appears enlarged, concentric LVH is present. Global systolic dysfunction, septal wall motion consistent with previous open heart procedure LVEF 30 +/- 5%. 2. Normal RV size with reduced RV function. 3. There is grade 2 diastolic dysfunction, consistent with impaired relaxation and elevated left atrial pressure. 4. Aortic valve morphology not well-visualized leaflets appear thickened and calcified. No stenosis based on Doppler data. Mild AI. 5. There is mild mitral valve regurgitation. 6. There is mild tricuspid valve regurgitation. 7. There is no pulmonary hypertension, estimated right ventricle systolic pressure is 32 mmHg. History/Risk Factors Hypertension: Yes Dyslipidemia: Yes Diabetic Therapy: Insulin Obesity: Yes Coronary Artery Disease (CAD) Yes Cardiomyopathy/LV Systolic Dysfunction: Yes Diabetes Mellitus: Type II Tobacco Use: Never History/Risk Factors Patient has prior CABG on 10/04/2016. Prior Interventions CABG: Yes Date of CAB10/04/2016 Procedure(s): Complete two-dimensional, color flow and Doppler transthoracic echocardiogram is performed with contrast. Definity explained to patient. Patient verbalizes understanding and agrees to proceed. Definity 1.3ml/8.7ml normal sterile saline 2 ml total given IV over 30-60 seconds. Left Ventricle Left ventricle appears enlarged, concentric LVH is present. Global systolic dysfunction, septal wall motion consistent with previous open heart procedure LVEF 30 +/- 5%. Left ventricular segmental wall motion is abnormal. There is grade 2 diastolic dysfunction, consistent with impaired relaxation and elevated left atrial pressure. Right Ventricle Normal RV size with reduced RV function. Left Atria Left atrial chamber is normal with a left atrial volume index of 26 ml/m2 by BP MOD. Right Atria Right atrial chamber dimension is not well visualized. Aortic Valve Aortic valve morphology not well-visualized leaflets appear thickened and calcified. No stenosis based on Doppler data. Mild AI. Pulmonic Valve The pulmonic valve is not well visualized. There is trace pulmonic regurgitation. There is no pulmonic valve stenosis. Mitral Valve The mitral valve has normal leaflets. There is no mitral valve stenosis. There is mild mitral valve regurgitation. Tricuspid Valve The tricuspid valve leaflets are normal. There is no significant tricuspid valve stenosis. There is mild tricuspid valve regurgitation. There is no pulmonary hypertension, estimated right ventricle systolic pressure is 32 mmHg. Pericardium/Pleural There is no pericardial effusion. Inferior Vena Cava Inferior vena cava is not well visualized. Aorta The aortic measurements are indexed to age and body surface area. The aortic root is normal measuring 3.6 cm with an index of 1.4 cm/m2. Wall Motion Scoring Wall Motion Scoring Index: 2.00 Left Ventricular Outflow Tract ---- Name Value Normal ---- LVOT 2D ---- LVOT Diameter 2.1 cm LVOT Doppler ---- LVOT Peak Velocity 1.1 m/s LVOT Peak Gradient 4 mmHg LVOT Mean Gradient 2 mmHg LVOT VTI 25 cm LVOT VTI/AV VTI Ratio 0.7 LVOT Stroke Volume 84 ml LVOT Stroke Index 32.73 ml/m2 Pulmonic Valve ---- Name Value Normal ---- PV 2D ---- RVOT Diameter (2D) 2.7 cm 1.7-2.7 RVOT Doppler ---- RVOT Peak Velocity 72 cm/s RVOT Peak Gradient 2 mmHg RVOT Mean Gradient 1 mmHg RVOT VTI 14 cm PV Regurgitation Doppler ---- WI Peak Gradient 1 mmHg WI Peak End Diastolic Velocity 45 cm/s Mitral Valve ---- Name Value Normal ---- MV Doppler (more content not included)... Normal [facility] HEMOGLOBIN A1Con 06-23-2024 Glucose [Mass/Vol] 212 mg/dL High 74-114 [facility] Comment on above: Performed By: #### 4 8202 #### LAB [address] [id number] Suraj Gamez M.D. [id number] HbA1c (Bld) [Mass fraction] 9.0 % High 4.2-5.6 [facility] Comment on above: Performed By: #### 4 8202 #### LAB [address] [address] Suraj Gamez M.D. [id number] HEPATIC FUNCTION PANELon Albumin [Mass/Vol] 3.8 g/dL Normal 3.2-5.2 [facility] Comment on above: Performed By: #### 4 5866 #### LAB [address] [address] Suraj Gamez M.D. [id number] ALP [Catalytic activity/Vol] 58 U/L Normal 40-150 [facility] Comment on above: Performed By: #### 4 5866 #### LAB [address] [address] Suraj Gamez M.D. [id number] ALT [Catalytic activity/Vol] 20 U/L Normal 0-50 U/L [facility] Comment on above: Performed By: #### 4 5866 #### LAB [address] [address] Suraj Gamez M.D. [id number] AST [Catalytic activity/Vol] 23 U/L Normal 0-50 U/L [facility] Comment on above: Performed By: #### 4 5866 #### LAB [address] [address] Suraj Gamez M.D. [id number] Bilirubin [Mass/Vol] 0.3 mg/dL Normal 0.0-1.3 [facility] Comment on above: Performed By: #### 4 5866 #### LAB [address] [address] Suraj Gamez M.D. [id number] BILIRUBIN, DIRECT < Normal 0.0-0.4 [facility] Comment on above: Performed By: #### 4 5873 ####[facility] LAB [address] [place], [place] [address] Suraj Gamez M.D. [id number] Protein [Mass/Vol] 6.6 g/dL Normal 6.0-8.0 [facility] Comment on above: Performed By: #### 4 5866 #### LAB [address] [place], [place] [address] Suraj Gamez M.D. [id number] MAGNESIUM LEVELon 06-23-2024 Magnesium [Mass/Vol] 1.7 mg/dL Normal 1.6-2.4 [facility] Comment on above: Performed By: #### 4 6109 #### LAB [address] [place], [place] [address] Suraj Gamez M.D. [id number] MR FOOT LEFT WITHOUT CONTRAS Ton 06-23-2024 MR FOOT LEFT WITHOUT CONTRAST EXAMINATION: MR FOOT LEFT WITHOUT CONTRAST HISTORY: ORDERING SYSTEM PROVIDED HISTORY: Left toe infection; r/o osteomyelitis, TECHNOLOGIST PROVIDED HISTORY: Illness/Other Reason for exam: Lt foot 2nd toe wound x2 weeks ? Osteo Encounter Type: Initial Additional signs and symptoms: Hx. surgery / screw in Lt. foot 5th metatarsal ORDERING SYSTEM PROVIDED DIAGNOSIS CODES: COMPARISON: Left foot x-rays 06/23/2024. TECHNIQUE: Multiplanar multisequence MRI of the left mid/forefoot was performed without contrast. This included long-axis T1, long-axis STIR, short axis PD, short axis T2 fat-sat, sagittal T1 and sagittal STIR imaging. CONTRAST: None. FINDINGS: JOINTS: As seen, the tarsometatarsal alignment appears preserved on this non-weightbearing study. The interosseous component of the Lisfranc ligament is identified and is intact. Moderate marginal spur across the 2nd through 4th TMT joints. Mild marginal spur at the 1st MTP joint. BONES: There is an intramedullary screw along the 5th metatarsal causing some susceptibility artifact. There is edema in the 2nd distal phalanx. Some infiltrative T1 signal change in the tuft of the 2nd distal phalanx. Sesamoid bones appear intact. TENDONS: Visualized flexor and extensor tendons are intact. No long-segment tenosynovitis is seen. PLANTAR FASCIA: The visualized plantar fascia appears intact. SOFT TISSUES: Thinning of the soft tissues of the tip of the 2nd toe suggesting a skin wound/ulceration. Adjacent soft tissue swelling and edema. Nonspecific edema along the dorsum of the foot. No definite abscess identified without IV contrast. No evidence of intermetatarsal bursitis. No perineural fibrosis/Preciado's neuroma identified. Plantar plates are intact. Prominent fatty atrophy of the forefoot muscles presumably related to chronic diabetic neuropathy. IMPRESSION: 1. Osteomyelitis involving the 2nd distal phalanx, particularly at the tuft. Overlying skin wound/ulceration. 2. Edema along the 2nd toe suggesting cellulitis. No abscess identified. 3. Postsurgical change of the 5th metatarsal. MPH/rf Workstation ID: [id number] Dictated by: SINAI GREENBERG on [place] Jun 25, 2024 11:02:43 AM EDT Transcribed by: NICK DOMINGUEZ on [place] Jun 25, 2024 11:40:08 AM EDT Finalized by: SINAI GREENBERG on [place] Jun 25, 2024 11:57:52 AM EDT Normal [facility] Comment on above: Order Comment: Injur y/Trauma or Illness?:Illness/Other How long have you had these symptoms (acute/chronic)?:Acute Reason for exam?:Lt foot 2nd toe wound x2 weeks ? Osteo Type of Exam?:Initial Additional signs and symptoms?:Hx. surgery / screw in Lt. foot 5th metatarsal NT PRO BNPon 06-23-2024 Natriuretic peptide B (Bld) [Mass/Vol] 1438 pg/mL High 0-300 [facility] Comment on above: Order Comment: Pride Study Cut-offsRule In:< /= 50 Years >450 pg/mL51 Years - 75 Years >900 pg/mL76 Years - 99 Years >1800 pg/mLRule Out:All patients <300 pg/mL Performed By: #### 4 7395 #### LAB [address] [place], [place] [address] Suraj Gamez M.D. [id number] PHOSPHORUSon 06-23-2024 Phosphate [Mass/Vol] 3.0 mg/dL Normal 2.3-3.7 [facility] Comment on above: Performed By: #### [id number] #### LAB [address] [place], [place] [address] Suraj Gamez M.D. [id number] POC GLUCOSE - [facility] 024 Glucose [Mass/Vol] 141 mg/dL High [address] [place] [address] Comment on above: Performed By: #### [id number] #### LAB [address] [place] [address] Suraj Gamez M.D. [id number] Glucose [Mass/Vol] 276 mg/dL [address] Comment on above: Performed By: #### [id number] ####[facility] LAB [address] [place] [address] Suraj Gamez M.D. [id number] Glucose [Mass/Vol] 304 mg/dL [address] Comment on above: Performed By: #### [id number] #### LAB [address] [place] [address] Suraj Gamez M.D. [id number] Glucose [Mass/Vol] 316 mg/dL [address] Comment on above: Performed By: #### 4 [id number] #### LAB [address] [place] [address] Suraj Gamez M.D. [id number] Glucose [Mass/Vol] 281 mg/dL [address] Comment on above: Performed By: #### 4 [id number] #### LAB [address] [place] [address] Suraj Gamez M.D. [id number] PT/INRon 06-23-2024 INR Coag (PPP) [Relative time] 1.1 {INR} Normal 0.8-1.1 [facility] Comment on above: Order Comment: Tavia rocha the induction phase of oral anticoagulation, the INR may not reflect the anticoagulation status of the patient. Therapeutic ranges for INR's are:Most clinical situations: INR 2.0-3.0Mechanical Prosthetic Valve: INR 2.5-3.5Critical: INR >5.0 Performed By: #### 4 [id number] #### LAB [address] [place] [address] Suraj Gamez M.D. [id number] PT Coag (PPP) [Time] 14.0 s Normal 11.8-14.3 [facility] Comment on above: Order Comment: Tavia rocha the induction phase of oral anticoagulation, the INR may not reflect the anticoagulation status of the patient. Therapeutic ranges for INR's are:Most clinical situations: INR 2.0-3.0Mechanical Prosthetic Valve: INR 2.5-3.5Critical: INR >5.0 Performed By: #### 4 [id number] #### LAB [address] [place], [place] [address] Suraj Gamez M.D. [id number] SEDIMENTATION RATEon 024 SEDIMENTATION RATE, ERYTHROCYTE 31 mm/hr High [facility] Comment on above: Performed By: #### 4 [id number] #### LAB [address] [place], [place] [address] Suraj Gamez M.D. [id number] US TESTICLE WITH COLOR FLOWo n 06-23-2024 US TESTICLE WITH COLOR FLOW EXAMINATION: US TESTICLE WITH COLOR FLOW HISTORY: ORDERING SYSTEM PROVIDED HISTORY: Scrotal swelling and tenderness, TECHNOLOGIST PROVIDED HISTORY: Illness/Other Reason for exam: SCROTAL SWELLING Cancer History: u Surgery, RadiationHistory: Y Encounter Type: Initial Additional signs and symptoms: NONE ORDERING SYSTEM PROVIDED DIAGNOSIS CODES: COMPARISON: None TECHNIQUE: Arterial duplex examination performed using B-mode, color flow and spectral analysis. FINDINGS: The right testicle measures 4.2 x 2.7 x 2.9 cm. The left testicle measures 4.8 x 3 x 3.1 cm. No intratesticular mass. Homogeneous echotexture. The epididymal heads are normal. Small bilateral hydroceles. Vascular flow is demonstrated within both testicles. Diffuse scrotal edema. IMPRESSION: Diffuse scrotal edema. No sonographic evidence of testicular torsion. Small bilateral hydroceles. Workstation ID: [id number] Dictated by: ISHA SINGER on [facility] Jun 24, 2024 10:17:02 AM EDT Transcribed by: ISHA SINGER on [facility] Jun 24, 2024 10:17:02 AM EDT Finalized by: ISHA SINGER on [facility] Jun 24, 2024 10:17:02 AM EDT Normal [facility] Comment on above: Order Comment: Injur y/Trauma or Illness?:Illness/Other How long have you had these symptoms (acute/chronic)?:Acute Reason for exam?:SCROTAL SWELLING History of cancer?:u Surgeries, chemotherapy, or radiation?:Y RIGHT FOOT RECONSTRUCTION WITH APPLICATION OF CIRCULAR STATIC EXTERNAL FIXATION Type of Exam?:Initial Additional signs and symptoms?:NONE WOUND AEROBIC CULTUREon 06-05 WOUND AEROBIC CULTURE AEROBIC CULTURE ENTEROBACTER CLOACAE COMPLEX Rare growth Enterobacter cloacae complex Light Growth Normal Skin Chalino GRAM STAIN RESULT No WBC Seen No Organisms Seen Organism: ENTEROBACTER CLOACAE COMPLEX Antibiotic Interpretation LISETTE Status Amikacin Susc Islt S <=2 F Aztreonam Susc Islt S <=1 F Cefepime Susc Islt S <=1 F Ceftriaxone Susc Islt S <=1 F Ciprofloxacin Susc Islt S <=0.25 F AVOID fluoroquinolone treatment whenever possible. Risk of serious side effects may outweigh benefit. Gentamicin Susc Islt S <=1 F Pip+Tazo Susc Islt S <=4 F Tobramycin Susc Islt S <=1 F TMP SMX Susc Islt S <=20 F Abnormal [facility] Comment on above: Performed By: #### 4 [id number] #### LAB [address] [place], [place] [address] Suraj Gamez M.D. [id number] XR CHEST AP/PA AND LATon XR CHEST AP/PA AND LAT EXAMINATION: XR CHEST AP/PA AND LAT 06/23/2024 3:10 pm HISTORY: ORDERING SYSTEM PROVIDED HISTORY: Dyspnea and swelling, TECHNOLOGIST PROVIDED HISTORY: Illness/Other Reason for exam: Dyspnea and swelling Cancer History: u Surgery, RadiationHistory: Y Encounter Type: Initial Additional signs and symptoms: . ORDERING SYSTEM PROVIDED DIAGNOSIS CODES: COMPARISON: Chest radiographs dated 06/09/2024 FINDINGS: PA and lateral views. The lungs are well expanded without pneumothorax, pleural effusion, or focal consolidation. The cardiac silhouette is not enlarged. Median sternotomy wires. Multilevel thoracic spondylosis. IMPRESSION: No acute cardiopulmonary abnormality. Workstation ID: [id number] Dictated by: ISHA SINGER on Sat Jun 24, 2024 8:52:12 AM EDT Transcribed by: ISHA SINGER on [facility] Jun 24, 2024 8:52:12 AM EDT Finalized by: ISHA SINGER on [facility] Jun 24, 2024 8:52:12 AM EDT [facility] Comment on above: Order Comment: Injur y/Trauma or Illness?:Illness/Other How long have you had these symptoms (acute/chronic)?:Acute Reason for exam?:Dyspnea and swelling History of cancer?:u Surgeries, chemotherapy, or radiation?:Y RIGHT FOOT RECONSTRUCTION WITH APPLICATION OF CIRCULAR STATIC EXTERNAL FIXATION Type of Exam?:Initial Additional signs and symptoms?:. XR FOOT LEFT 3+ VIEWS (STAND GLORIA)on 06-23-2024 XR FOOT LEFT 3+ VIEWS (STANDARD) EXAMINATION: XR FOOT LEFT 3+ VIEWS (STANDARD) 06/23/2024 10:33 am HISTORY: ORDERING SYSTEM PROVIDED HISTORY: Exam room 1 at [facility], TECHNOLOGIST PROVIDED HISTORY: Illness/Other Reason for exam: chronic wounds Cancer History: u Surgery, RadiationHistory: Y Encounter Type: Initial Additional signs and symptoms: na ORDERING SYSTEM PROVIDED DIAGNOSIS CODES: COMPARISON: X-ray left foot 03/07/2017. FINDINGS: Three views of the left foot were obtained. A broken cannulated screw is noted in the proximal 5th metatarsal, similar to prior. Diffuse degenerative findings noted in the midfoot with joint space narrowing, subchondral sclerosis and osteophyte formation which appears similar to prior. No acute fracture or dislocation. No bony erosion identified. 10 mm plantar calcaneal spur is noted. Small Achilles enthesophyte is also present. Soft tissues demonstrate no unexpected radiopaque foreign body. IMPRESSION: Degenerative and postsurgical findings in the left foot, similar to prior. SLM/alt Workstation ID: [id number] Dictated by: NINOSKA HAGER on WedJun 23, 2024 2:14:49 PM EDT Transcribed by: ANA GODFREY on WedJun 23, 2024 2:37:34 PM EDT Finalized by: NINOSKA HAGER on WedJun 23, 2024 3:29:42 PM EDT [facility] Comment on above: Order Comment: Injur y/Trauma or Illness?:Illness/Other How long have you had these symptoms (acute/chronic)?:Acute Reason for exam?:SCROTAL SWELLING History of cancer?:u Surgeries, chemotherapy, or radiation?:Y RIGHT FOOT RECONSTRUCTION WITH APPLICATION OF CIRCULAR STATIC EXTERNAL FIXATION Type of Exam?:Initial Additional signs and symptoms?:NONE XR Foot - left 3 Viewson Degenerative and postsurgical findings in the left foot, similar to prior. [employer] Workstation ID: [id number] [email or web address]. com EXAMINATION: XR FOOT LEFT 3+ VIEWS (STANDARD) 06/23/2024 10:33 am HISTORY: ORDERING SYSTEM PROVIDED HISTORY: Exam [facility] at [facility], TECHNOLOGIST PROVIDED HISTORY: Illness/Other Reason for exam: chronic wounds Cancer History: u Surgery, RadiationHistory: Y Encounter Type: Initial Additional signs and symptoms: na ORDERING SYSTEM PROVIDED DIAGNOSIS CODES: COMPARISON: X-ray left foot 03/07/2017. FINDINGS: Three views of the left foot were obtained. A broken cannulated screw is noted in the proximal 5th metatarsal, similar to prior. Diffuse degenerative findings noted in the midfoot with joint space narrowing, subchondral sclerosis and osteophyte formation which appears similar to prior. No acute fracture or dislocation. No bony erosion identified. 10 mm plantar calcaneal spur is noted. Small Achilles enthesophyte is also present. Soft tissues demonstrate no unexpected radiopaque foreign body. [facility] Ninoska Hager M D - 06/23/2024 EXAMINATION: XR FOOT LEFT 3+ VIEWS (STANDARD) 06/23/2024 10:33 am HISTORY: ORDERING SYSTEM PROVIDED HISTORY: Exam [facility] [place], TECHNOLOGIST PROVIDED HISTORY: Illness/Other Reason for exam: chronic wounds Cancer History: u Surgery, RadiationHistory: Y Encounter Type: Initial Additional signs and symptoms: na ORDERING SYSTEM PROVIDED DIAGNOSIS CODES: COMPARISON: X-ray left foot 03/07/2017. FINDINGS: Three views of the left foot were obtained. A broken cannulated screw is noted in the proximal 5th metatarsal, similar to prior. Diffuse degenerative findings noted in the midfoot with joint space narrowing, subchondral sclerosis and osteophyte formation which appears similar to prior. No acute fracture or dislocation. No bony erosion identified. 10 mm plantar calcaneal spur is noted. Small Achilles enthesophyte is also present. Soft tissues demonstrate no unexpected radiopaque foreign body. IMPRESSION: Degenerative and postsurgical findings in the left foot, similar to prior. [employer] Workstation ID: [id number] [facility] Radiology Study observation (narrative) [facility] XR Foot - left 3 ViewsOrdere d By: Ninoska Hager on 06-23-2024 [facility] Work Phone: ED Prov Noteon 06-09-2024 ED Prov Note HPI: 06/09/2024, Time: @NOWSANIA@ Dyllan Huertas is a 63 y.o. male presenting to the ED for scrotal swelling, beginning specially 3 days ago. The complaint has been constant, moderate in severity, and worsened by nothing. Also leg swelling bilaterally and no significant difficulty breathing. No fever or chills and no chest pain or cough. No abdominal pain ROS: Pertinent positives and negatives are stated within HPI, all other systems reviewed and are negative. - PAST HISTORY - Past Medical History: @HP@ Past Surgical History: has a past surgical history that includes orthopedic surgery; Appendectomy; METAL IN LEFT LEFT WRIST AND LEFT 5TH TOE (Left); RT FOOT SURGERY (Right); TUMMY TUCK (N/A); CYST REMOVED FROM CHEST (N/A); Cardiac surgery (2017); Arthroplasty Toe (Right, 01/25/2019); RECONSTRUCTION FOOT CHARCOT (Right, 11/20/2019); Cabg (2017); Incision And Drainage Foot And Ankle (Right, 12/02/2019); Closed Reduction Percutaneous Pinning Lower Extremity (N/A, 12/02/2019); Arthrodesis Subtalar (Right, 05/01/2020); ORIF foot fracture (Left, 07/03/2013); Liposuction; CT Colonoscopy (02/24/2023); and CT Colonoscopy (03/21/2023). Social History: reports that he has never smoked. He has never used smokeless tobacco. He reports current alcohol use. He reports that he does not use drugs. Family History: family history includes Diabetes in his father, mother, and sister; Heart disease in his brother, father, and mother; Hypertension in his brother; Other Cancer in his brother; Parkinson's in his father. The patient's home medications have been reviewed. Allergies: Patient has no known allergies. ------ RESULTS ----- All laboratory and radiology results have been personally reviewed by myself LABS: Results for orders placed or performed during the hospital encounter of 06/09/24 POC CBC and Differential Result Value Ref Range WBC 5.53 4.50 - 11.00 K/mcL RBC 3.38 (L) 4.50 - 5.90 M/mcL Hemoglobin 9.7 (L) 13.5 - 17.5 g/dL Hematocrit 32.1 (L) 41.0 - 53.0 % MCV 95.0 80.0 - 100.0 fL MCH 28.7 26.0 - 34.0 pg MCHC 30.2 (L) 31.0 - 37.0 g/dL RDW - CV 13.5 11.6 - 14.8 % Neutrophils 79.4 % Lymphocytes 9.0 % Monocytes 9.4 % Eosinophils 1.8 % Basophils 0.2 % IG Percent 0.20 % Neutrophils Abs 4.39 1.70 - 7.00 K/mcL Lymphocytes Abs 0.50 (L) 0.90 - 4.00 K/mcL Monocytes Abs 0.52 0.30 - 0.90 K/mcL Eosinophils Abs 0.10 0.00 - 0.50 K/mcL Basophils Abs 0.01 0.00 - 0.30 K/mcL IG Absolute 0.01 0.00 - 0.30 K/mcL Comment See Comment (CR) (none) POC CBC and Differential Result Value Ref Range WBC 6.05 4.50 - 11.00 K/mcL RBC 3.44 (L) 4.50 - 5.90 M/mcL Hemoglobin 9.9 (L) 13.5 - 17.5 g/dL Hematocrit 32.0 (L) 41.0 - 53.0 % MCV 93.0 80.0 - 100.0 fL MCH 28.8 26.0 - 34.0 pg MCHC 30.9 (L) 31.0 - 37.0 g/dL RDW - CV 13.4 11.6 - 14.8 % Platelets 194 150 - 400 K/mcL MPV 9.8 9.4 - 12.4 fL Neutrophils 80.8 % Lymphocytes 7.6 % Monocytes 9.1 % Eosinophils 1.8 % Basophils 0.5 % IG Percent 0.20 % Neutrophils Abs 4.89 1.70 - 7.00 K/mcL Lymphocytes Abs 0.46 (L) 0.90 - 4.00 K/mcL Monocytes Abs 0.55 0.30 - 0.90 K/mcL Eosinophils Abs 0.11 0.00 - 0.50 K/mcL Basophils Abs 0.03 0.00 - 0.30 K/mcL IG Absolute 0.01 0.00 - 0.30 K/mcL POC Basic Metabolic Panel Result Value Ref Range Glucose 229 (H) 65 - 99 mg/dL BUN 41 (H) 8 - 25 mg/dL Creatinine 1.44 (H) 0.80 - 1.30 mg/dL GFR 55 (L) >=60 mL/min/1.73 m2 Sodium 141 135 - 145 mmol/L Potassium 5.9 (H) 3.5 - 5.1 mmol/L Chloride 110 (H) 98 - 108 mmol/L TCO2 28 21 - 32 mmol/L Ionized Calcium 4.7 4.5 - 5.3 mg/dL POC B-type natriuretic peptide (BNP) Result Value Ref Range BNP 420 (H) <100 pg/mL POC Basic Metabolic Panel Result Value Ref Range Glucose 209 (H) 65 - 99 mg/dL BUN 38 (H) 8 - 25 mg/dL Creatinine 1.39 (H) 0.80 - 1.30 mg/dL GFR 58 (L) >=60 mL/min/1.73 m2 Sodium 143 135 - 145 mmol/L Potassium 5.2 (H) 3.5 - 5.1 mmol/L Chloride 110 (H) 98 - 108 mmol/L TCO2 26 21 - 32 mmol/L Ionized Calcium 4.9 4.5 - 5.3 mg/dL POC Troponin I Result Value Ref Range Troponin I <0.05 <0.05 ng/mL POC Urinalysis Dipstick, Auto Result Value Ref Range Spec Grav, UA 1.025 1.005 - 1.025 pH, UA 7.5 (H) 5.0 - 7.0 Protein, UA 100 (A) Negative mg/dL Glucose, UA Negative Negative mg/dL Ketones, UA Negative Negative mg/dL Bilirubin, UA Negative Negative Urobilinogen, UA 0.2 <2.0 mg/dL Blood, UA Negative Negative Nitrite, UA Negative Negative Leukocyte Esterase, UA Negative Negative POC Troponin I Result Value Ref Range Troponin I <0.05 <0.05 ng/mL RADIOLOGY: Interpreted by Radiologist. XR Chest 1 View (Results Pending) --- NURSING NOTES AND VITALS REVIEWED ----- The nursing notes within the (more content not included)... Normal [facility] POC B-TYPE NATRIURETIC PEPTI DE (BNP) - [facility] 06-09-2024 Natriuretic peptide B (Bld) [Mass/Vol] 420 pg/mL High <100 [facility] POC BASIC METABOLIC PANEL - [facility] 06-09-2024 Chloride [Moles/Vol] 110 mmol/L High 98-108 [facility] Comment on above: Order Comment: [facility] has implemented the eGFR calculation approach that does not have a coefficient for race that conforms to the NKF-ASN Task Force Recommendations. CO2 [Moles/Vol] 26 mmol/L Normal 21-32 [facility] Comment on above: Order Comment: [facility] has implemented the eGFR calculation approach that does not have a coefficient for race that conforms to the NKF-ASN Task Force Recommendations. Creatinine [Mass/Vol] 1.39 mg/dL High 0.80-1.30 [facility] Comment on above: Order Comment: [facility] has implemented the eGFR calculation approach that does not have a coefficient for race that conforms to the NKF-ASN Task Force Recommendations. Glucose [Mass/Vol] 209 mg/dL High 65-99 [facility] Comment on above: Order Comment: [facility] has implemented the eGFR calculation approach that does not have a coefficient for race that conforms to the NKF-ASN Task Force Recommendations. POC GFR 58 mL/min/1.73 m2 Low >=60 [facility] Comment on above: Order Comment: [facility] has implemented the eGFR calculation approach that does not have a coefficient for race that conforms to the NKF-ASN Task Force Recommendations. Result Comment: Dorothea mated GFR was calculated using the 2020 CKD-EPI creatinine equation. POC IONIZED CALCIUM 4.9 mg/dL Normal 4.5-5.3 [facility] Comment on above: Order Comment: [facility] has implemented the eGFR calculation approach that does not have a coefficient for race that conforms to the NKF-ASN Task Force Recommendations. Potassium [Moles/Vol] 5.2 mmol/L High 3.5-5.1 [facility] Comment on above: Order Comment: [facility] has implemented the eGFR calculation approach that does not have a coefficient for race that conforms to the NKF-ASN Task Force Recommendations. Sodium [Moles/Vol] 143 mmol/L Normal 135-145 [facility] Comment on above: Order Comment: [facility] has implemented the eGFR calculation approach that does not have a coefficient for race that conforms to the NKF-ASN Task Force Recommendations. Urea nitrogen [Mass/Vol] 38 mg/dL High 8-25 [facility] Comment on above: Order Comment: [facility] has implemented the eGFR calculation approach that does not have a coefficient for race that conforms to the NKF-ASN Task Force Recommendations. Chloride [Moles/Vol] 110 mmol/L High 98-108 [facility] Comment on above: Order Comment: [facility] has implemented the eGFR calculation approach that does not have a coefficient for race that conforms to the NKF-ASN Task Force Recommendations. CO2 [Moles/Vol] 28 mmol/L Normal 21-32 [facility] Comment on above: Order Comment: [facility] has implemented the eGFR calculation approach that does not have a coefficient for race that conforms to the NKF-ASN Task Force Recommendations. Creatinine [Mass/Vol] 1.44 mg/dL High 0.80-1.30 [facility] Comment on above: Order Comment: [facility] has implemented the eGFR calculation approach that does not have a coefficient for race that conforms to the NKF-ASN Task Force Recommendations. Glucose [Mass/Vol] 229 mg/dL High 65-99 [facility] Comment on above: Order Comment: [facility] has implemented the eGFR calculation approach that does not have a coefficient for race that conforms to the NKF-ASN Task Force Recommendations. POC GFR 55 mL/min/1.73 m2 Low >=60 [facility] Comment on above: Order Comment: [facility] has implemented the eGFR calculation approach that does not have a coefficient for race that conforms to the NKF-ASN Task Force Recommendations. Result Comment: Dorothea mated GFR was calculated using the 2020 CKD-EPI creatinine equation. POC IONIZED CALCIUM 4.7 mg/dL Normal 4.5-5.3 [facility] Comment on above: Order Comment: [facility] has implemented the eGFR calculation approach that does not have a coefficient for race that conforms to the NKF-ASN Task Force Recommendations. Potassium [Moles/Vol] 5.9 mmol/L High 3.5-5.1 [facility] Comment on above: Order Comment: [facility] has implemented the eGFR calculation approach that does not have a coefficient for race that conforms to the NKF-ASN Task Force Recommendations. Sodium [Moles/Vol] 141 mmol/L Normal 135-145 [facility] Comment on above: Order Comment: [facility] has implemented the eGFR calculation approach that does not have a coefficient for race that conforms to the NKF-ASN Task Force Recommendations. Urea nitrogen [Mass/Vol] 41 mg/dL High 8-25 [facility] Comment on above: Order Comment: [facility] has implemented the eGFR calculation approach that does not have a coefficient for race that conforms to the NKF-ASN Task Force Recommendations. POC CBC AND DIFFERENTIALon 0 06-09-2024 BASOPHILS ABSOLUTE COUNT 0.03 K/mcL Normal 0.00-0.30 [facility] Basophils/100 WBC (Bld) 0.5 % Normal [facility] Eosinophils (Bld) [#/Vol] 0.11 10*3/uL Normal 0.00-0.50 [facility] Eosinophils/100 WBC (Bld) 1.8 % Normal [facility] Erythrocyte distribution width (RBC) [Ratio] 13.4 % Normal 11.6-14.8 [facility] Hematocrit (Bld) [Volume fraction] 32.0 % Low 41.0-53.0 [facility] Hemoglobin (Bld) [Mass/Vol] 9.9 g/dL Low 13.5-17.5 [facility] IG ABSOLUTE 0.01 K/mcL Normal 0.00-0.30 [facility] IG PERCENT 0.20 % Normal [facility] Comment on above: Result Comment: The IG parameter is the percentage of metamyelocytes, myelocytes and promyelocytes. An immature granulocyte count (IG) of 1% or more suggests the possibility of infection, an IG count of 3% is very likely related to an infection. Lymphocytes (Bld) [#/Vol] 0.46 10*3/uL Low 0.90-4.00 [facility] Lymphocytes/100 WBC (Bld) 7.6 % Normal [facility] MCH (RBC) [Entitic mass] 28.8 pg Normal 26.0-34.0 [facility] MCV (RBC) [Entitic vol] 93.0 fL Normal 80.0-100.0 [facility] MEAN CORPUSCULAR HEMOGLOBIN CONC 30.9 g/dL Low 31.0-37.0 [facility] Monocytes (Bld) [#/Vol] 0.55 10*3/uL Normal 0.30-0.90 [facility] Monocytes/100 WBC (Bld) 9.1 % Normal [facility] NEUTROPHILS ABSOLUTE COUNT 4.89 K/mcL Normal 1.70-7.00 [facility] Neutrophils/100 WBC (Bld) 80.8 % Normal [facility] Platelet mean volume (Bld) [Entitic vol] 9.8 fL Normal 9.4-12.4 [facility] Platelets (Bld) [#/Vol] 194 10*3/uL Normal 150-400 [facility] RBC (Bld) [#/Vol] 3.44 10*6/uL Low 4.50-5.90 [facility] WBC (Bld) [#/Vol] 6.05 10*3/uL Normal 4.50-11.00 [facility] BASOPHILS ABSOLUTE COUNT 0.01 K/mcL Normal 0.00-0.30 [facility] Basophils/100 WBC (Bld) 0.2 % Normal [facility] Eosinophils (Bld) [#/Vol] 0.10 10*3/uL Normal 0.00-0.50 [facility] Eosinophils/100 WBC (Bld) 1.8 % Normal [facility] Erythrocyte distribution width (RBC) [Ratio] 13.5 % Normal 11.6-14.8 [facility] Hematocrit (Bld) [Volume fraction] 32.1 % Low 41.0-53.0 [facility] Hemoglobin (Bld) [Mass/Vol] 9.7 g/dL Low 13.5-17.5 [facility] IG ABSOLUTE 0.01 K/mcL Normal 0.00-0.30 [facility] IG PERCENT 0.20 % Normal [facility] Comment on above: Result Comment: The IG parameter is the percentage of metamyelocytes, myelocytes and promyelocytes. An immature granulocyte count (IG) of 1% or more suggests the possibility of infection, an IG count of 3% is very likely related to an infection. Lymphocytes (Bld) [#/Vol] 0.50 10*3/uL Low 0.90-4.00 [facility] Lymphocytes/100 WBC (Bld) 9.0 % Normal [facility] MCH (RBC) [Entitic mass] 28.7 pg Normal 26.0-34.0 [facility] MCV (RBC) [Entitic vol] 95.0 fL Normal 80.0-100.0 [facility] MEAN CORPUSCULAR HEMOGLOBIN CONC 30.2 g/dL Low 31.0-37.0 [facility] Monocytes (Bld) [#/Vol] 0.52 10*3/uL Normal 0.30-0.90 [facility] Monocytes/100 WBC (Bld) 9.4 % Normal [facility] NEUTROPHILS ABSOLUTE COUNT 4.39 K/mcL Normal 1.70-7.00 [facility] Neutrophils/100 WBC (Bld) 79.4 % Normal [facility] RBC (Bld) [#/Vol] 3.38 10*6/uL Low 4.50-5.90 [facility] WBC (Bld) [#/Vol] 5.53 10*3/uL Normal 4.50-11.00 [facility] [id number] See Comment Critically abnormal (none) [facility] Comment on above: Result Comment: CRIT ICAL. CBCD reordered and sent to . Possible interfering substance affecting the PLT parameters. POC TROPONIN I [facility] 2023 POC TROPONIN I < Normal <0.05 [facility] POC TROPONIN I < Normal <0.05 [facility] POC URINALYSIS DIPSTICK,AUTO - [facility] 06-09-2024 POC BILIRUBIN, URINE Negative Normal Negative [facility] POC BLOOD, URINE Negative Normal Negative [facility] POC GLUCOSE, URINE Negative Normal Negative [facility] POC KETONES, URINE Negative Normal Negative [facility] POC LEUKOCYTE ESTERASE, URINE Negative Normal Negative [facility] POC NITRITE, URINE Negative Normal Negative [facility] POC PH, URINE 7.5 High 5.0-7.0 [facility] POC SPECIFIC GRAVITY 1.025 Normal 1.005-1.025 [facility] POC UROBILINOGEN 0.2 mg/dL Normal < 2.0 [facility] Protein (U) [Mass/Vol] 100 mg/dL Abnormal Negative [facility] XR CHEST PA/APon 06-09-2024 XR CHEST PA/AP EXAMINATION: XR CHEST PA/AP 06/09/2024 7:03 pm HISTORY: ORDERING SYSTEM PROVIDED HISTORY: Peripheral edema and shortness of breath, TECHNOLOGIST PROVIDED HISTORY: Illness/Other Reason for exam: wheezing for couple days, heart bypass sx 2017 Cancer History: u Surgery, RadiationHistory: Y Encounter Type: Initial Additional signs and symptoms: Pt states he noticed bilateral testicular swelling approx two days ago. Pt also complains of wheezing for a few days. ORDERING SYSTEM PROVIDED DIAGNOSIS CODES: COMPARISON: Two-view chest from 04/26/2020. FINDINGS: Trachea is midline. Mediastinum is not widened. Heart size is mildly prominent. Sternal wires are noted. There is slight atelectasis in the lung bases. No effusion or nodule or pneumothorax is noted. Diaphragm and bony elements are intact. IMPRESSION: 1. The lungs show chronic changes with slight bibasilar atelectasis. 2. Mild cardiomegaly. Workstation ID: [id number] Dictated by: RALPH ORANTES on WedJun 09, 2024 7:46:21 PM EDT Transcribed by: RALPH ORANTES on WedJun 09, 2024 7:46:21 PM EDT Finalized by: RALPH ORANTES on WedJun 09, 2024 7:46:21 PM EDT [facility] Comment on above: Order Comment: Injur y/Trauma or Illness?:Illness/OtherHow long have you had these symptoms (acute/chronic)?:AcuteReason for exam?:wheezing for couple days, heart bypass sx 2017History of cancer?:uSurgeries, chemotherapy, or radiation?:YRIGHT FOOT RECONSTRUCTION WITH APPLICATION OF CIRCULAR STATIC EXTERNAL FIXATIONType of Exam?:InitialAdditional signs and symptoms?:Pt states he noticed bilateral testicular swelling approx two days ago. Pt also complains of wheezing for a few days. Apply dressingon 06-06-2024 Applied bilateral dressings and surgical shoes. [facility] Apply dressingOrdered By: Liv Gotti on 06-06-2024 [facility] WOUND AEROBIC CULTUREon WOUND AEROBIC CULTURE AEROBIC CULTURE PSEUDOMONAS AERUGINOSA Heavy Growth Pseudomonas aeruginosa Heavy Growth Normal Skin Chalino GRAM STAIN RESULT Many Gram Positive Cocci Many Gram Negative Bacilli Many WBC Many RBC Organism: PSEUDOMONAS AERUGINOSA Antibiotic Interpretation LISETTE Status Amikacin Susc Islt S <=2 F Cefepime Susc Islt S 2 F Ciprofloxacin Susc Islt S <=0.25 F AVOID fluoroquinolone treatment whenever possible. Risk of serious side effects may outweigh benefit. Gentamicin Susc Islt S 2 F Meropenem Susc Islt S <=0.25 F Pip+Tazo Susc Islt S 8 F Tobramycin Susc Islt S <=1 F Abnormal [facility] Comment on above: Performed By: #### 4 [id number] ####[facility] [address] [place] [address] Michele Fair M.D. [id number] XR TIBIA FIBULA RIGHT 2 VIEW Son 06-06-2024 XR TIBIA FIBULA RIGHT 2 VIEWS Intact IM nail fixation with osseous consolidation noted across the tibiotalar and subtalar joints. No sign of lucency or failure of hardware No soft tissue gas emphysema noted Dictated by: ALENA MORA on WedJun 11, 2024 9:26:46 PM EDT Transcribed by: ALENA MORA on WedJun 11, 2024 9:26:46 PM EDT Finalized by: ALENA MORA on WedJun 11, 2024 9:26:46 PM EDT Normal [facility] Comment on above: Order Comment: Injur y/Trauma or Illness?:Illness/OtherHow long have you had these symptoms (acute/chronic)?:AcuteReason for exam?:pain and swellingHistory of cancer?:uSurgeries, chemotherapy, or radiation?:YRIGHT FOOT RECONSTRUCTION WITH APPLICATION OF CIRCULAR STATIC EXTERNAL FIXATIONType of Exam?:InitialAdditional signs and symptoms?:open wounds/cellulitis ED Prov Noteon 05-28-2024 ED Prov Note [facility] ED Physician Note: NAME: Dyllan Huertas 63 y.o. CSN: [id number] PCP: Jace Reeder DO ED Course / Medical Decision Making: Patient has cellulitis and abrasions to the leg. Patient does wear a brace and did get new boots so these most likely are rubbing causing the abrasion. Patient told to get the boot and brace refitted. Patient started on doxycycline. He is also given Bactroban cream. He is to follow-up with his primary doctor worsening symptoms come back to the ER. Patient has no signs of' sepsis or bacteremia I do not feel any blood work is indicated. Patient has good pedal pulses. Patient has a blood sugar of 209. Patient knows close follow-up with primary doctor indicated. Medical Decision Making Amount and/or Complexity of Data Reviewed Independent Historian: Details: Patient gave history Clinical Impression: 1. Wound cellulitis 2. Abrasions of multiple sites Disposition: Patient is being discharged to home New Prescriptions doxycycline hyclate (VIBRA-TABS) 100 MG tablet Take 1 (one) tablet (100 mg total) by mouth 2 (two) times a day for 7 days . mupirocin (BACTROBAN) 2 % ointment Apply topically 3 (three) times a day . History: Chief Complaint: Cellulitis HPI: The history was obtained from the patient. He is a 63 y.o. male who presents with a chief complaint of Cellulitis. HPI patient has had wounds on his leg for some time. He seen his primary doctor. He is not currently on an antibiotic. He did get a new pair of boots. He noticed a new wound on his right talbert. He denies any fever or chills. He is diabetic but has not checked his sugar. PMHx: Past Medical History: Diagnosis Date Acquired equinus deformity of right foot Acquired hammer toe of right foot Angina pectoris with documented spasm ([facility]) Calluse Cellulitis of left toe Charcot's joint, right ankle and foot Chronic osteomyelitis with draining sinus, right ankle and foot ([facility]) Complication of external fixation device with internal components ([facility]) Coronary artery disease Dehiscence of incision Diabetes mellitus, type 2 ([facility]) Dystrophic nail Edema Effusion of ankle and foot joint Fracture of metatarsal, closed Fungal toenail infection Hyperlipidemia Hypertension Hypothyroidism 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 ([facility]) Non-pressure chronic ulcer of other part of left foot limited to breakdown of skin ([facility]) Non-pressure chronic ulcer of other part of right foot with fat layer exposed ([facility]) limited to breakdown of skin Obesity Overflow incontinence Peripheral neuropathy Pressure ulcer of right foot, stage 2 ([facility]) S/P foot surgery, right 12/09/2019 11/20/2019Right foot reconstruction surgery with external fixation 12/02/2019 Right foot I and D Sleep apnea, obstructive does not use CPAP Tibia/fibula fracture PMSx: Past Surgical History: Procedure Laterality Date APPENDECTOMY ARTHRODESIS SUBTALAR Right 05/01/2020 Procedure: RIGHT ANKLE ARTHRODESIS, SUBTALAR ARTHRODESIS RIGHT ANKLE, Bone [place] Graft From Right Fibula, Application of Splint; Surgeon: Alena Mora DPM; Location: Main OR; Service: Podiatry ARTHROPLASTY TOE Right 01/25/2019 Procedure: ARTHROPLASTY 2ND TOE RIGHT FOOT; Surgeon: Rosa M Robles DPM; Location: [facility]; Service: Podiatry CABG 2017 CARDIAC SURGERY 2017 CABG tripe bypass CLOSED REDUCTION PERCUTANEOUS PINNING LOWER EXTREMITY N/A 12/02/2019 Procedure: ADJUSTMENT of EXTERNAL FIXATOR; Surgeon: Alena Mora DPM; Location: Main OR; Service: Podiatry CT COLONOSCOPY 02/24/[address] COLONOSCOPY 03/21/2023 CT COLONOSCOPY CYST REMOVED FROM CHEST N/A INCISION AND DRAINAGE FOOT AND ANKLE Right 12/02/2019 Procedure: RIGHT FOOT I&D; Surgeon: Alena Mora DPM; Location: Main OR; Service: Podiatry LIPOSUCTION METAL IN LEFT LEFT WRIST AND LEFT 5TH TOE Left ORIF FOOT FRACTURE Left 07/03/2013 5th metatarsal ORTHOPEDIC SURGERY RECONSTRUCTION FOOT CHARCOT Right 11/20/2019 Procedure: RIGHT FOOT RECONSTRUCTION WITH APPLICATION OF CIRCULAR STATIC EXTERNAL FIXATION; Surgeon: Alena Mora DPM; Location: Main OR; Service: Podiatry RT FOOT SURGERY Right TUMEMILY GARCIACK N/A FAM. Hx: Family History Problem Relation Age of Onset Heart disease Mother Diabetes Mother Heart disease Father Diabetes Father Parkinson's Father Diabetes Sister Heart disease Brother Hypertension Brother Other Cancer Brother Bypass SOC. Hx: Social History Socioeconomic History Marital status: Single Tobacco Use Smoking status: Never Smokeless tobacco: Never Vaping Use Vaping status: Never Used Substance and Sexual Activity Alcohol use: Yes Comment: very very rarely Drug use: Never Sexual activity: Not Currently MEDs: Previous Medications Medication Sig calcium carbonate 400 mg Chew Chew and Swallow 1 (one) tablet (1,000 mg (more content not included)... Normal [facility] Glucose [Mass/Vol] 209 mg/dL High 65-99 [facility] Comprehensive metabolic 2000 panelon 04-14-2024 Albumin BCP dye [Mass/Vol] 4.3 g/dL Normal 3.4-5.0 [facility] Comment on above: Performed By: #### 2 4323-8 #### GALINA GARCIAS ([id number]) [facility] ([facility]) [facility] [place] [address] ALP [Catalytic activity/Vol] 55 U/L Normal 33-136 [facility] Comment on above: Performed By: #### 2 4323-8 #### GALINA GARCIAS ([id number]) [facility] ([facility]) [facility] [place] [address] ALT With P-5'-P [Catalytic activity/Vol] 25 U/L Normal 10-52 [facility] Comment on above: Result Comment: Monie ents treated with Sulfasalazine may generate falsely decreased results for ALT. Performed By: #### 2 4323-8 #### GALINA GARCIAS ([id number]) [facility] ([facility]) [facility] [place] [address] Anion gap [Moles/Vol] 14 mmol/L Normal 10-20 [facility] Comment on above: Performed By: #### 2 4323-8 #### GALINA GARCIAS ([id number]) [facility] ([facility]) [address] [place] [address] AST With P-5'-P [Catalytic activity/Vol] 29 U/L Normal 9-39 [facility] Comment on above: Performed By: #### 2 432-8 #### GALINA GARCIAS ([id number]) [facility] ([facility]) [address] [place] [address] Bilirubin [Mass/Vol] 0.3 mg/dL Normal 0.0-1.2 [facility] Comment on above: Performed By: #### 2 4322-8 #### GALINA GARCIAS ([id number]) [facility] ([facility]) [address] [place] [address] Calcium [Mass/Vol] 9.6 mg/dL Normal 8.6-10.3 [facility] Comment on above: Performed By: #### 2 4322-8 #### GALINA GARCIAS ([id number]) [facility] ([facility]) [address] [place] [address] Chloride [Moles/Vol] 106 mmol/L Normal 98-107 [facility] Comment on above: Performed By: #### 2 4322-8 #### GALINA GARCIAS ([id number]) [facility] ([facility]) [address] [place] [address] CO2 [Moles/Vol] 26 mmol/L Normal 21-32 [facility] Comment on above: Performed By: #### 2 4322-8 #### GALINA GARCIAS ([id number]) [facility] ([facility]) [address] [place] [address] Creatinine [Mass/Vol] 1.35 mg/dL High 0.50-1.30 [facility] Comment on above: Performed By: #### 2 4322-8 #### GALINA GARCIAS ([id number]) [facility] ([facility]) [address] [place] [address] Glomerular filtration rate/1.73 sq M.predicted 60 mL/min/1.73m*2 Low >60 [facility] Comment on above: Result Comment: Calc ulations of estimated GFR are performed using the 2020 CKD-EPI Study Refit equation without the race variable for the IDMS-Traceable creatinine methods. https://jasn.asnjournals.org/content//ASN.134618 1811 Performed By: #### 2 4323-8 #### GALINA GARCIAS ([id number]) [facility] ([facility]) [address] [place] [address] Glucose [Mass/Vol] 140 mg/dL High 74-99 [facility] Comment on above: Performed By: #### 2 4323-8 #### GALINA GARCIAS ([id number]) [facility] ([facility]) [address] [place] [address] Potassium [Moles/Vol] 4.3 mmol/L Normal 3.5-5.3 [facility] Comment on above: Performed By: #### 2 4323-8 #### GALINA GARCIAS ([id number]) [facility] ([facility]) [address] [place] [address] Protein [Mass/Vol] 6.8 g/dL Normal 6.4-8.2 [facility] Comment on above: Performed By: #### 2 4323-8 #### GALINA GARCIAS ([id number]) [facility] ([facility]) [address] [place] [address] Sodium [Moles/Vol] 142 mmol/L Normal 136-145 [facility] Comment on above: Performed By: #### 2 4323-8 #### GALINA GARCIAS ([id number]) [facility] ([facility]) [address] [place] [address] Urea nitrogen [Mass/Vol] 44 mg/dL High 6-23 [facility] Comment on above: Performed By: #### 2 4323-8 #### GALINA GARCIAS ([id number]) [facility] ([facility]) [facility] [place] [address] HbA1c (Bld) [Mass fraction]o n 04-14-2024 Average glucose Estimated from glycated hemoglobin (Bld) [Mass/Vol] 249 mg/dL Normal Not Established [facility] Comment on above: Order Comment: Diagn osis of Diabetes-Adults Non-Diabetic: < or = 5.6% Increased risk for developing diabetes: 5.7-6.4% Diagnostic of diabetes: > or = 6.5% Performed By: #### 4 548-4 #### GALINA GARCIAS ([id number]) [facility] ([facility]) [facility] [place] [id number] Hemoglobin A1c/Hemoglobin.to guillermo 04-14-2024 HbA1c (Bld) [Mass fraction] 10.3 % High see below [facility] Comment on above: Order Comment: Diagn osis of Diabetes-Adults Non-Diabetic: < or = 5.6% Increased risk for developing diabetes: 5.7-6.4% Diagnostic of diabetes: > or = 6.5% Performed By: #### 4 548-4 #### GALINA GARCIAS ([id number]) [facility] ([facility]) [facility] [place] [address] Lipid 1996 panelon 4 Cholesterol [Mass/Vol] 220 mg/dL High 0-199 [facility] Comment on above: Result Comment: Age Desirable Borderline High High 0-19 Y 0 - 169 170 - 199 >/= 200 20-24 Y 0 - 189 190 - 224 >/= 225 >24 Y 0 - 199 200 - 239 >/= 240 All ranges are based on fasting samples. Specific therapeutic targets will vary based on patient-specific cardiac risk. Pediatric guidelines reference:Pediatrics 2011, 128(S5).Adult guidelines reference: NCEP ATPIII Guidelines,ANNA 2001, 258:2486-97 Venipuncture immediately after or during the administration of Metamizole may lead to falsely low results. Testing should be performed immediately prior to Metamizole dosing. Performed By: #### 2 4331-1 #### GALINA GARCIAS ([id number]) [facility] ([facility]) [facility] [place] [address] Cholesterol in HDL [Mass/Vol] 37.0 mg/dL Normal [facility] Comment on above: Result Comment: Age Very Low Low Normal High 0-19 Y < 35 < 40 40-45 ---- 20-24 Y ---- < 40 >45 ---- >24 Y ---- < 40 40-60 >60 Performed By: #### 2 4331-1 #### GALINA GARCIAS ([id number]) [facility] ([facility]) [facility] [place] [address] Cholesterol in LDL [Mass/Vol] Normal [facility] Comment on above: Result Comment: The calculation of LDL and VLDL are inaccurate when the Triglycerides are greater than 400 mg/dL or when the patient is non-fasting. If LDL measurement is necessary contact the testing laboratory for an alternative LDL assay. Near Borderline AGE Desirable Optimal High High Very High 0-19 Y 0 - 109 --- 110-129 >/= 130 ---- 20-24 Y 0 - 119 --- 120-159 >/= 160 ---- >24 Y 0 - 99 100-129 130-159 160-189 >/=190 Performed By: #### 2 4331-1 #### GALINA GARCIAS ([id number]) [facility] ([facility]) [address] [place] [address] CHOLESTEROL/HDL RATIO 5.9 Normal [facility] Comment on above: Result Comment: Ref Values Desirable < 3.4 High Risk > 5.0 Performed By: #### 2 4331-1 #### GAILNA GARCIAS ([id number]) [facility] ([facility]) [address] [place] [address] NON HDL CHOLESTEROL 183 mg/dL High 0-149 [facility] Comment on above: Result Comment: Age Desirable Borderline High High Very High 0-19 Y 0 - 119 120 - 144 >/= 145 >/= 160 20-24 Y 0 - 149 150 - 189 >/= 190 ---- >24 Y 30 mg/dL above LDL Cholesterol goal Performed By: #### 2 4331-1 #### GALINA GARCIAS ([id number]) [facility] ([facility]) [facility] [place] [address] Triglyceride [Mass/Vol] 951 mg/dL High 0-149 [facility] Comment on above: Result Comment: Age Desirable Borderline High High Very High 0 D-90 D 19 - 174 ---- ---- ---- 91 D- 9 Y 0 - 74 75 - 99 >/= 100 ---- 10-19 Y 0 - 89 90 - 129 >/= 130 ---- 20-24 Y 0 - 114 115 - 149 >/= 150 ---- >24 Y 0 - 149 150 - 199 200- 499 >/= 500 Venipuncture immediately after or during the administration of Metamizole may lead to falsely low results. Testing should be performed immediately prior to Metamizole dosing. Performed By: #### 2 4331-1 #### GALINA GARCIAS ([id number]) [facility] ([facility]) [address] [place] [address] VLDL Normal [facility] Comment on above: Result Comment: Unab le to calculate VLDL. Performed By: #### 2 4331-1 #### GALINA GARCIAS ([id number]) [facility] ([facility]) [address] [place] [address] TSH WITH REFLEX TO FREE T4 I F ABNORMALon 04-14-2024 TSH Qn 2.16 m[IU]/L Normal 0.44-3.98 [facility] Comment on above: Order Comment: TSH t esting is performed using different testing methodology at [facility] than at other [facility]. Direct result comparisons should only be made within the same method. Performed By: #### T HYDS #### GALINA GARCIAS ([id number]) [facility] ([facility]) [address] [place] [address] Colonoscopyon 03-21-2023 Michelle Beaulieu DO - 03/25/2023 Patient Name: Dyllan Huertas Procedure Date: 01/06/2023 9:27 AM Date of : 1960 Admit Type: Outpatient Site: [facility] Ethnicity: Not or Race: White Attending MD: Michelle Beaulieu DO, [id number] Procedure: Colonoscopy Indications: Screening for colorectal malignant neoplasm Providers: Michelle Beaulieu DO (Doctor), Anette Daniels RN (Nurse), Nina Andre RN (Nurse), Derek Prado RN (Nurse) Referring: Rohit Aguilar MD Medicines: Midazolam 2.5 mg IV, Meperidine 50 mg IV, Glucagon 1 mg IV Complications: No immediate complications. Procedure: Pre-Anesthesia Assessment: - Prior to the procedure, a History and Physical was performed, and patient medications and allergies were reviewed. The patient is competent. The risks and benefits of the procedure and the sedation options and risks were discussed with the patient. All questions were answered and informed consent was obtained. Patient identification and proposed procedure were verified by the physician in the pre-procedure area. Mental Status Examination: alert and oriented. Airway Examination: normal oropharyngeal airway and neck mobility. Respiratory Examination: clear to auscultation. CV Examination: normal. Prophylactic Antibiotics: The patient does not require prophylactic antibiotics. Prior Anticoagulants: The patient has taken no anticoagulant or antiplatelet agents. ASA Grade Assessment: II - A patient with mild systemic disease. After reviewing the risks and benefits, the patient was deemed in satisfactory condition to undergo the procedure. The anesthesia plan was to use moderate sedation / analgesia (conscious sedation). Immediately prior to administration of medications, the patient was re-assessed for adequacy to receive sedatives. The heart rate, respiratory rate, oxygen saturations, blood pressure, adequacy of pulmonary ventilation, and response to care were monitored throughout the procedure. The physical status of the patient was re-assessed after the procedure. After I obtained informed consent, the scope was passed under direct vision. Throughout the procedure, the patient's blood pressure, pulse, and oxygen saturations were monitored continuously. The adult colonoscope was introduced through the anus and advanced to the transverse colon. No anatomical landmarks were photographed. The colonoscopy was performed without difficulty. The patient tolerated the procedure well. The quality of the bowel preparation was unsatisfactory. Findings: The perianal and digital rectal examinations were normal. Pertinent negatives include normal sphincter tone. Extensive amounts of stool was found in the rectum, in the sigmoid colon, in the descending colon and at the splenic flexure, precluding visualization. Lavage of the area was performed using a moderate amount of sterile water, resulting in incomplete clearance with continued poor visualization. Moderate Sedation: Moderate (conscious) sedation was administered by the nurse and supervised by the endoscopist. The following parameters were monitored: oxygen saturation, heart rate, blood pressure, and response to care. Total physician intraservice time was 18 minutes. Estimated Blood Loss: Estimated blood loss: none. Impression: - Preparation of the colon was unsatisfactory. - Stool in the rectum, in the sigmoid colon, in the descending colon and at the splenic flexure. - No specimens collected. Recommendation: - Patient has a contact number available for emergencies. The signs and symptoms of potential delayed complications were discussed with the patient. Return to normal activities tomorrow. Written discharge instructions were provided to the patient. - Resume previous diet. - Continue present medications. - Repeat colonoscopy in 3 months because the bowel preparation was suboptimal. Procedure Code(s): --- Professional --- 71334, 53, Colonoscopy, flexible; diagnostic, including collection of specimen(s) by brushing or washing, when performed (separate procedure) G0500, Moderate sedation services provided by the same physician or other qualified health managed care specialist performing a gastrointestinal endoscopic service that sedation supports, requiring the presence of an independent trained observer to assist in the monitoring of the patient's level of consciousness and physiological status; initial 15 minutes of intra-service time; patient age 5 years or older (additional time may be reported with 04532, as appropriate) Diagnosis Code(s): --- Professional --- Z12.11, Encounter for screening for malignant neoplasm of colon CPT copyright 2021 [employer]. All rights reserved. The codes documented in this report (more content not included)... [facility] Work Phone: ColonoscopyOrdered By: Michelle Beaulieu on 03-21-2023 [facility] Work Phone: SURGICAL PATHOLOGY RESULTSon 03-05-2023 Pathology Report Name SARA HUERTAS[place] Pathologist: NICK REEDER MD Date of Procedure: 02/24/2023 Date Received: 02/24/2023 Date Reported 03/05/2023 Submitting Physician: MICHELLE BEAULIEU DO Location: [facility] Copy To/Referring/Attending : ROHIT AGUILAR MD Other External # FINAL DIAGNOSIS A. COLON, TRANSVERSE, POLYPECTOMY: -- NON-NEOPLASTIC COLONIC MUCOSA (SEE NOTE) Note: Adenomatous epithelium is not identified. Multiple deeper levels have been examined. The gross and/or microscopic findings were reviewed in conjunction with pathology resident, ROMARIO Wilkins. Electronically Signed Out By NICK REEDER MD/LALITHA By the signature on this report, the individual or group listed as making the Final Interpretation/Diagnos is certifies that they have reviewed this case. Diagnostic interpretation performed at [place] [address] Clinical History: HX COLON POLYPS Specimens Submitted As: A: TRANSVERSE COLON POLYP Gross Description: Received in formalin, labeled with the patient's name and hospital number and transverse colon polyp, is one light carrion polypoid, soft tissue fragment measuring 0.3 x 0.3 x 0.2 cm. The specimen is submitted in toto in one cassette. LMP lmp/03/02/2023 [facility] Department of Pathology [address] [place] [address] Colonoscopyon 02-24-2023 Colonoscopy PATIENTNAME Patient Name: Dyllan Huertas EXAMDATE Procedure Date: 02/24/2023 11:14 AM PATIENTID PATIENTACCOUNTNUM PATIENTDOB Date of : 1960 ADMITTYPE Admit Type: Outpatient PATIENTROOM Site: [place] [address] ETHNICITY Ethnicity: Not or RACE Race: White PROVDR Attending MD: Michelle Beaulieu DO, [phone] ENDOPROCEDURENAME Procedure: Colonoscopy INDICATION Indications: Screening for colorectal malignant neoplasm PRIMARYPROVIDER Providers: Michelle Beaulieu DO (Doctor), Anette Daniels RN (Nurse), Jose Wise, Fingerprint Expert EDREFPROVIDER Referring: Rohit Aguilar MD CURRENT_MEDS Medicines: Midazolam 2.5 mg IV, Meperidine 50 mg IV, Glucagon 1 mg IV COMPLIC Complications: No immediate complications. ENDOPROCEDURETEXT Procedure: Pre-Anesthesia Assessment: - Prior to the procedure, a History and Physical was performed, and patient medications and allergies were reviewed. The patient is competent. The risks and benefits of the procedure and the sedation options and risks were discussed with the patient. All questions were answered and informed consent was obtained. Patient identification and proposed procedure were verified by the physician in the pre-procedure area. Mental Status Examination: alert and oriented. Airway Examination: normal oropharyngeal airway and neck mobility. Respiratory Examination: clear to auscultation. CV Examination: normal. Prophylactic Antibiotics: The patient does not require prophylactic antibiotics. Prior Anticoagulants: The patient has taken no anticoagulant or antiplatelet agents. ASA Grade Assessment: II - A patient with mild systemic disease. After reviewing the risks and benefits, the patient was deemed in satisfactory condition to undergo the procedure. The anesthesia plan was to use moderate sedation / analgesia (conscious sedation). Immediately prior to administration of medications, the patient was re-assessed for adequacy to receive sedatives. The heart rate, respiratory rate, oxygen saturations, blood pressure, adequacy of pulmonary ventilation, and response to care were monitored throughout the procedure. The physical status of the patient was re-assessed after the procedure. After I obtained informed consent, the scope was passed under direct vision. Throughout the procedure, the patient's blood pressure, pulse, and oxygen saturations were monitored continuously. The pediatric colonoscope was introduced through the anus and advanced to the cecum, identified by appendiceal orifice and ileocecal valve. The colonoscopy was performed without difficulty. The patient tolerated the procedure well. The quality of the bowel preparation was good. The ileocecal valve, appendiceal orifice, and rectum were photographed. FINDING Findings: The perianal and digital rectal examinations were normal. Pertinent negatives include normal sphincter tone and no palpable rectal lesions. A 4 mm polyp was found in the mid transverse colon. The polyp was semi-pedunculated. The polyp was removed with a cold snare. Resection and retrieval were complete. To prevent bleeding post-intervention, one hemostatic clip was successfully placed (MR conditional). 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 There was no bleeding at the end of the procedure. No additional abnormalities were found on retroflexion. SEDATION Moderate Sedation: Moderate (conscious) sedation was administered by the nurse and supervised by the endoscopist. The following parameters were monitored: oxygen saturation, heart rate, blood pressure, and response to care. Total physician intraservice time was 21 minutes. EBL Estimated Blood Loss: Estimated blood loss: none. IMPRESS Impression: - One 4 mm polyp in the mid transverse colon, removed with a cold snare. Resected and retrieved. Clip (MR conditional) was placed. 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 ENDORECOMMENDATION Recommendation: - Patient has a contact number available for emergencies. The signs and symptoms of potential delayed complications were discussed with the patient. Return to normal activities tomorrow. Written discharge instructions were provided to the patient. - Resume previous diet. - Continue present medications. - Repeat colonoscopy in 5 years for surveillance based on pathology results. CPT_CODES Procedure Code(s): --- Professional --- 43696, Colonoscopy, flexible; with removal of tumor(s), polyp(s), or other lesion(s) by snare technique G0500, Moderate sedation services provided by the same physician or other qualified health managed care specialist performing a gastrointestinal endoscopic service that sedation supports, requiring the presence of an independent trained observer to assist in the monitoring of the patient's level of consciousness and physiologic (more content not included)... Normal [facility] Michelle Beaulieu DO - 03/29/2023 Patient Name: Dyllan Huertas Procedure Date: 02/24/2023 11:14 AM Date of : 1960 Admit Type: Outpatient Site: [facility] Ethnicity: Not or Race: White Attending MD: Michelle Beaulieu DO, [phone] Procedure: Colonoscopy Indications: Screening for colorectal malignant neoplasm Providers: Michelle Beaulieu DO (Doctor), Anette Daniels RN (Nurse), Jose Wise, Fingerprint Expert Referring: Rohit Aguilar MD Medicines: Midazolam 2.5 mg IV, Meperidine 50 mg IV, Glucagon 1 mg IV Complications: No immediate complications. Procedure: Pre-Anesthesia Assessment: - Prior to the procedure, a History and Physical was performed, and patient medications and allergies were reviewed. The patient is competent. The risks and benefits of the procedure and the sedation options and risks were discussed with the patient. All questions were answered and informed consent was obtained. Patient identification and proposed procedure were verified by the physician in the pre-procedure area. Mental Status Examination: alert and oriented. Airway Examination: normal oropharyngeal airway and neck mobility. Respiratory Examination: clear to auscultation. CV Examination: normal. Prophylactic Antibiotics: The patient does not require prophylactic antibiotics. Prior Anticoagulants: The patient has taken no anticoagulant or antiplatelet agents. ASA Grade Assessment: II - A patient with mild systemic disease. After reviewing the risks and benefits, the patient was deemed in satisfactory condition to undergo the procedure. The anesthesia plan was to use moderate sedation / analgesia (conscious sedation). Immediately prior to administration of medications, the patient was re-assessed for adequacy to receive sedatives. The heart rate, respiratory rate, oxygen saturations, blood pressure, adequacy of pulmonary ventilation, and response to care were monitored throughout the procedure. The physical status of the patient was re-assessed after the procedure. After I obtained informed consent, the scope was passed under direct vision. Throughout the procedure, the patient's blood pressure, pulse, and oxygen saturations were monitored continuously. The pediatric colonoscope was introduced through the anus and advanced to the cecum, identified by appendiceal orifice and ileocecal valve. The colonoscopy was performed without difficulty. The patient tolerated the procedure well. The quality of the bowel preparation was good. The ileocecal valve, appendiceal orifice, and rectum were photographed. Findings: The perianal and digital rectal examinations were normal. Pertinent negatives include normal sphincter tone and no palpable rectal lesions. A 4 mm polyp was found in the mid transverse colon. The polyp was semi-pedunculated. The polyp was removed with a cold snare. Resection and retrieval were complete. To prevent bleeding post-intervention, one hemostatic clip was successfully placed (MR conditional). 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 There was no bleeding at the end of the procedure. No additional abnormalities were found on retroflexion. Moderate Sedation: Moderate (conscious) sedation was administered by the nurse and supervised by the endoscopist. The following parameters were monitored: oxygen saturation, heart rate, blood pressure, and response to care. Total physician intraservice time was 21 minutes. Estimated Blood Loss: Estimated blood loss: none. Impression: - One 4 mm polyp in the mid transverse colon, removed with a cold snare. Resected and retrieved. Clip (MR conditional) was placed. 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 Recommendation: - Patient has a contact number available for emergencies. The signs and symptoms of potential delayed complications were discussed with the patient. Return to normal activities tomorrow. Written discharge instructions were provided to the patient. - Resume previous diet. - Continue present medications. - Repeat colonoscopy in 5 years for surveillance based on pathology results. Procedure Code(s): --- Professional --- 92733, Colonoscopy, flexible; with removal of tumor(s), polyp(s), or other lesion(s) by snare technique G0500, Moderate sedation services provided by the same physician or other qualified health managed care specialist performing a gastrointestinal endoscopic service that sedation supports, requiring the presence of an independent trained observer to assist in the monitoring of the patient's level of consciousness and physiological status; initial 15 minutes of intra-service time; patient age 5 years or older (additional time may be reported with 65857, as appropriate) Diagnosis Code(s): --- Professional --- Z12.11, Encounter (more content not included)... [facility] Work Phone: Radiology Study observation (narrative) [facility] Work Phone: ColonoscopyOrdered By: Michelle Beaulieu on 02-24-2023 [facility] Work Phone: GLUCOSE-POCTon 02-24-2023 Glucose [Mass/Vol] 130 mg/dL High 74 - 99 [facility] Comment on above: Performed By: #### G RENATA #### [place] [address] Glucose Test strip manual (B ld) [Mass/Vol]on 02-24-2023 Glucose [Mass/Vol] 130 mg/dL High 74 - 99 mg/dL [facility] Interpretation and review of laboratory results Abnormal [facility] - Chemistry and C hemistry - challengeon 02-24-2023 Glucose [Mass/Vol] 130 mg/dL above high threshold 74 - 99 [facility] Work Phone: No Panel Informationon 02-24 [facility] Work Phone: [email or web address]} [facility] Work Phone: [facility] Surgical Pathology Depar tmenton 02-24-2023 [facility] Surgical Pathology Department Name DYLLAN HUERTAS Pathologist: NICK REEDER MD Date of Procedure: 02/24/2023 Date Received: 02/24/2023 Date Reported 03/05/2023 Submitting Physician: MICHELLE BEAULIEU DO Location: [facility] Copy To/Referring/Attending : ROHIT AGUILAR MD Other External # FINAL DIAGNOSIS A. COLON, TRANSVERSE, POLYPECTOMY: -- NON-NEOPLASTIC COLONIC MUCOSA (SEE NOTE) Note: Adenomatous epithelium is not identified. Multiple deeper levels have been examined. The gross and/or microscopic findings were reviewed in conjunction with pathology resident, ROMARIO Wilkins. Electronically Signed Out By NICK REEDER MD/[facility] By the signature on this report, the individual or group listed as making the Final Interpretation/Diagnos is certifies that they have reviewed this case. Diagnostic interpretation performed at [address] [place] [address] Clinical History: HX COLON POLYPS Specimens Submitted As: A: TRANSVERSE COLON POLYP Gross Description: Received in formalin, labeled with the patient's name and [facility] number and transverse colon polyp, is one light carrion polypoid, soft tissue fragment measuring 0.3 x 0.3 x 0.2 cm. The specimen is submitted in toto in one cassette. LMP lmp/03/02/2023 [facility] Department of Pathology [address] [place] [address] Normal [facility] Comment on above: Performed By: #### [facility] #### [facility] Surgical Pathology Department [address] [place] [address] Colonoscopyon 01-06-2023 Colonoscopy PATIENTNAME Patient Name: Dyllan Huertas EXAMDATE Procedure Date: 01/06/2023 9:27 AM PATIENTID PATIENTACCOUNTNUM PATIENTDOB Date of : 1960 ADMITTYPE Admit Type: Outpatient PATIENTROOM Site: [facility] ETHNICITY Ethnicity: Not or RACE Race: White PROVDR Attending MD: Michelle Beaulieu DO, [phone] ENDOPROCEDURENAME Procedure: Colonoscopy INDICATION Indications: Screening for colorectal malignant neoplasm PRIMARYPROVIDER Providers: Michelle Beaulieu DO (Doctor), Anette Daniels RN (Nurse), Nina Andre RN (Nurse), Derek Prado RN (Nurse) EDREFPROVIDER Referring: Rohit Aguilar MD CURRENT_MEDS Medicines: Midazolam 2.5 mg IV, Meperidine 50 mg IV, Glucagon 1 mg IV COMPLIC Complications: No immediate complications. ENDOPROCEDURETEXT Procedure: Pre-Anesthesia Assessment: - Prior to the procedure, a History and Physical was performed, and patient medications and allergies were reviewed. The patient is competent. The risks and benefits of the procedure and the sedation options and risks were discussed with the patient. All questions were answered and informed consent was obtained. Patient identification and proposed procedure were verified by the physician in the pre-procedure area. Mental Status Examination: alert and oriented. Airway Examination: normal oropharyngeal airway and neck mobility. Respiratory Examination: clear to auscultation. CV Examination: normal. Prophylactic Antibiotics: The patient does not require prophylactic antibiotics. Prior Anticoagulants: The patient has taken no anticoagulant or antiplatelet agents. ASA Grade Assessment: II - A patient with mild systemic disease. After reviewing the risks and benefits, the patient was deemed in satisfactory condition to undergo the procedure. The anesthesia plan was to use moderate sedation / analgesia (conscious sedation). Immediately prior to administration of medications, the patient was re-assessed for adequacy to receive sedatives. The heart rate, respiratory rate, oxygen saturations, blood pressure, adequacy of pulmonary ventilation, and response to care were monitored throughout the procedure. The physical status of the patient was re-assessed after the procedure. After I obtained informed consent, the scope was passed under direct vision. Throughout the procedure, the patient's blood pressure, pulse, and oxygen saturations were monitored continuously. The adult colonoscope was introduced through the anus and advanced to the transverse colon. No anatomical landmarks were photographed. The colonoscopy was performed without difficulty. The patient tolerated the procedure well. The quality of the bowel preparation was unsatisfactory. FINDING Findings: The perianal and digital rectal examinations were normal. Pertinent negatives include normal sphincter tone. Extensive amounts of stool was found in the rectum, in the sigmoid colon, in the descending colon and at the splenic flexure, precluding visualization. Lavage of the area was performed using a moderate amount of sterile water, resulting in incomplete clearance with continued poor visualization. SEDATION Moderate Sedation: Moderate (conscious) sedation was administered by the nurse and supervised by the endoscopist. The following parameters were monitored: oxygen saturation, heart rate, blood pressure, and response to care. Total physician intraservice time was 18 minutes. EBL Estimated Blood Loss: Estimated blood loss: none. IMPRESS Impression: - Preparation of the colon was unsatisfactory. - Stool in the rectum, in the sigmoid colon, in the descending colon and at the splenic flexure. - No specimens collected. ENDORECOMMENDATION Recommendation: - Patient has a contact number available for emergencies. The signs and symptoms of potential delayed complications were discussed with the patient. Return to normal activities tomorrow. Written discharge instructions were provided to the patient. - Resume previous diet. - Continue present medications. - Repeat colonoscopy in 3 months because the bowel preparation was suboptimal. CPT_CODES Procedure Code(s): --- Professional --- 93431, 53, Colonoscopy, flexible; diagnostic, including collection of specimen(s) by brushing or washing, when performed (separate procedure) G0500, Moderate sedation services provided by the same physician or other qualified health managed care specialist performing a gastrointestinal endoscopic service that sedation supports, requiring the presence of an independent trained observer to assist in the monitoring of the patient's level of consciousness and physiological status; initial 15 minutes of intra-service time; patient age 5 years or older (additional time may be reported with 16242, as appropriate) ICD_COD (more content not included)... Normal [facility] Radiology Study observation (narrative) [facility] Work Phone: GLUCOSE-POCTon 01-06-2023 Glucose [Mass/Vol] 101 mg/dL High 74 - 99 [facility] Comment on above: Performed By: #### G RENATA #### [address] [address] Glucose Test strip manual (B ld) [Mass/Vol]on 01-06-2023 Glucose [Mass/Vol] 101 mg/dL High 74 - 99 mg/dL [facility] Interpretation and review of laboratory results Abnormal [facility] Office Visit (Urology)on Follow-up visit Diagnoses/Problems Assessed Benign prostatic hyperplasia with urinary obstruction and other lower urinary tract symptoms (600.21) (N40.1,N13.8) Hypertension (401.9) (I10) Nocturia (788.43) (R35.1) Former smoker (V15.82) (Z87.891) Patient Discussion/Summary All available PSA values reviewed, Options discussed. Questions answered. Diet changes for prostate health discussed and educational information given. Pros/Cons of prostate health supplements discussed. Treatment options for LUTS reviewed Flomax and Proscar Rx refilled Discussed timed voiding. Discussed fluid and caffeine intake Lifestyle change to help prevent UTIs discussed. Encouraged fluid intake. Treatment options for ED reviewed. Reviewed labs from PCP Chief Complaint Yearly w/ PSA History of Present IllnessPatient is here for yearly f/u. Most recent PSA was 0.072 (05/25). Prior PSA was 0.04 on 03/24..Previous PSA was 0.06 on 04/21..hx of urinary retention and does know how to CIC but has not had to do....Denies frequency and urgency..Denies dysuria..Denies hematuria.. Patient is on flomax and proscar.. Patient is on proscar for hair loss, and he takes 1/3 of 5mg pill qmwf..ED is chronic. He has medication if needed . Energy level is good Review of Systems Constitutional: No fever, No chills Eye: negative Respiratory: No shortness of breath, No cough. Cardiovascular: No chest pain Gastrointestinal: No nausea Genitourinary: Negative except as documented in history of present illness. Hematology/Lymphatics: Patient denies being on blood thinners.. Endocrine: Negative. Immunologic: Not immunocompromised. Musculoskeletal: negative Integumentary: Negative. Neurologic: Alert and oriented X4. Psychiatric: Negative. Active Problems Problems Benign prostatic hyperplasia with urinary obstruction and other lower urinary tract symptoms (600.21) (N40.1,N13.8) Diabetes (250.00) (E11.9) Hypertension (401.9) (I10) Nocturia (788.43) (R35.1) Urinary retention (788.20) (R33.9) Surgical History Problems History of Abdominoplasty History of Appendectomy History of Coronary artery bypass graft History of Foot surgery History of Foot surgery History of Liposuction History of Wrist surgery Family History Mother Family history of Family history of cardiac disorder (V17.49) (Z82.49) Father Family history of Family history of cardiac disorder (V17.49) (Z82.49) Sister Family history of diabetes mellitus (V18.0) (Z83.3) Social History Problems Former smoker (V15.82) (Z87.891) Allergies Medication No Known Drug Allergies Recorded By: Nu Odonnell; 01/17/2020 9:53:01 AM Current Meds Medication NameInstruction Carvedilol 12.5 MG Oral Tablet Fenofibrate 160 MG Oral Tablet Finasteride 5 MG Oral Tablet Gabapentin 300 MG Oral Capsule Levothyroxine Sodium 100 MCG Oral Tablet Lisinopril 20 MG Oral Tablet metFORMIN HCl ER 500 MG Oral Tablet Extended Release 24 Hour NovoLIN 70/30 ReliOn (70-30) 100 UNIT/ML Subcutaneous SuspensionINJECT 100 UNITS SUBCUTANEOUSLY WITH BREAKFAST AND 30 WITH SUPPER NovoLIN R ReliOn 100 UNIT/ML Injection SolutionINJECT 50 UNITS SUBCUTANEOUSLY 3 TIMES DAILY WITH MEALS WITH ADDITIONA Rosuvastatin Calcium 20 MG Oral Tablet Tamsulosin HCl - 0.4 MG Oral Capsule Vitals Vital Signs Recorded: 27May2022 02:05PM Ltiuslytwhh62 Height5 ft 11 in Aqbgpt091 lb BMI Iimddasnkb70.45 kg/m2 BSA Calculated2.31 Tobacco Useb) No PHQ-2 Patient Declined/Screening not indicatedYes Falls Screening (Age 18+)a) No falls within the last year Physical Exam A/O x 3 in No apparent distress Constitutional: General appearance normal Respiratory: Respiratory effort is normal Gastrointestinal:Abdom en is not tender Genitourinary: Kidneys: Not palpable Bilaterally Bladder: Not palpable or tender Scrotum: No mass. No Hydrocele Epididymis: No spermatocele. Not tender Testicles: no mass Urethra: No Discharge Penis: WNL...No lesions. no phimosis Prostate: Symmetric. No Nodules. smooth Seminal Vesicles: No mass Signatures Electronically signed by : Dean Izquierdo II, MD; May 27 2022 2:25PM EST (Author) Normal [facility] Tobacco Screening.on 022 Fall risk assessment a) No falls within the last year [facility] Work Phone: Tobacco use status [facility]PH[facility] b) No [facility] Work Phone: Tobacco Screening. Yes [facility] Work Phone: Wound Aerobic CultureOrdered By: Phoebe Lewis on 08-22-2021 Bacteria identified Aer cx Nom (Wound) Light Growth Staphylococcus aureus Abnormal [facility] Comment on above: This Staphylococcus aureus is Methicillin SUSCEPTIBLE by PBP2a testing. Beta-lactams like Cefazolin and Nafcillin are superior to Vancomycin for treating mSsa. Interpretation and review of laboratory results Abnormal [facility] Microscopic observation Gram stain Nom (Wound) No WBC Seen [facility] Microscopic observation Gram stain Nom (Wound) No Epithelial Cells Seen [facility] [facility] Microscopic observation Gram stain Nom (Wound) No Organisms Seen [facility] Tobacco Screening.on 021 Fall risk assessment a) No falls within the last year [facility] Work Phone: Tobacco Screening. b) No MP[facility] Work Phone: Otheron 10-18-2020 1. Prior tibial shaf t fracture status post IM rodding. Interval progression of periosteal callus bridging this fracture. No change in alignment. 2. Prior tibiotalar and subtalar arthrodesis. No hardware complication in the hindfoot or in the tibiotalar joint. 3. Prior Lisfranc fracture deformity in the midfoot and forefoot regions, unchanged in appearance from prior x-ray. 4. Probable Charcot changes involving the midfoot particularly medial and lateral cuneiforms PRL/pji Workstation ID: [id number] [facility] EXAMINATION: XR FOOT RIGHT 3+ VIEWS (STANDARD); XR TIBIA FIBULA RIGHT 2 VIEWS 10/18/2020 8:57 am HISTORY: ORDERING SYSTEM PROVIDED HISTORY: post op, TECHNOLOGIST PROVIDED HISTORY: Illness/Other Reason for exam: post op, Charcot foot due to diabetes mellitus Cancer History: u Surgery, RadiationHistory: Y Encounter Type: Ongoing Additional signs and symptoms: n ORDERING SYSTEM PROVIDED DIAGNOSIS CODES: E11.610 Charcot foot due to diabetes mellitus (HCC) COMPARISON: 07/05/2020 and 09/06/2020. FINDINGS: Right foot 3 views. There is a deformity at the Lisfranc joint with lateral subluxation of the 2nd through 5th metatarsals unchanged. There is a partially healed fracture deformity involving the 5th metatarsal shaft. Fragmentation and severe deformities are seen involving the middle and lateral cuneiform is also unchanged. Truncation of the distal aspect of the 2nd proximal phalanx compatible with prior osteotomy. There is a prior surgical arthrodesis of the subtalar joint. The alignment of the plantar arch is unchanged. There is a partially healed fracture deformity of the midshaft of the tibial shaft status post IM rodding. The tommy is intact. There is no change in alignment. Fragmentation and/or prior surgical removal of the distal fibula unchanged as well. [facility] Interface, Rad In Fu ji Speechq - 10/18/2020 10:51 AM EST EXAMINATION: XR FOOT RIGHT 3+ VIEWS (STANDARD); XR TIBIA FIBULA RIGHT 2 VIEWS 10/18/2020 8:57 am HISTORY: ORDERING SYSTEM PROVIDED HISTORY: post op, TECHNOLOGIST PROVIDED HISTORY: Illness/Other Reason for exam: post op, Charcot foot due to diabetes mellitus Cancer History: u Surgery, RadiationHistory: Y Encounter Type: Ongoing Additional signs and symptoms: n ORDERING SYSTEM PROVIDED DIAGNOSIS CODES: E11.610 Charcot foot due to diabetes mellitus (HCC) COMPARISON: 07/05/2020 and 09/06/2020. FINDINGS: Right foot 3 views. There is a deformity at the Lisfranc joint with lateral subluxation of the 2nd through 5th metatarsals unchanged. There is a partially healed fracture deformity involving the 5th metatarsal shaft. Fragmentation and severe deformities are seen involving the middle and lateral cuneiform is also unchanged. Truncation of the distal aspect of the 2nd proximal phalanx compatible with prior osteotomy. There is a prior surgical arthrodesis of the subtalar joint. The alignment of the plantar arch is unchanged. There is a partially healed fracture deformity of the midshaft of the tibial shaft status post IM rodding. The tommy is intact. There is no change in alignment. Fragmentation and/or prior surgical removal of the distal fibula unchanged as well. IMPRESSION: 1. Prior tibial shaft fracture status post IM rodding. Interval progression of periosteal callus bridging this fracture. No change in alignment. 2. Prior tibiotalar and subtalar arthrodesis. No hardware complication in the hindfoot or in the tibiotalar joint. 3. Prior Lisfranc fracture deformity in the midfoot and forefoot regions, unchanged in appearance from prior x-ray. 4. Probable Charcot changes involving the midfoot particularly medial and lateral cuneiforms PRL/pji Workstation ID: [id number] [facility] Otheron 09-06-2020 Progressive healing of fracture at the junction of the middle and distal one-third of the right tibia, which is again noted to be immobilized by a gauzzd-ci-dzxastfj tibial medullary tommy. Stable resection changes distal articular aspect of the fibula. Netli Workstation ID: [id number] [facility] EXAMINATION: XR TIBI A FIBULA RIGHT 2 VIEWS 09/06/2020 9:24 am HISTORY: ORDERING SYSTEM PROVIDED HISTORY: TIBIAL FRACTURE, TECHNOLOGIST PROVIDED HISTORY: Illness/Other Reason for exam: TIBIAL FRACTURE Cancer History: u Surgery, RadiationHistory: Y Encounter Type: Initial Additional signs and symptoms: TIBIAL FRACTURE ORDERING SYSTEM PROVIDED DIAGNOSIS CODES: COMPARISON: August 23, 2020. FINDINGS: The 2-view study of the right leg shows progressive healing at the tibial shaft fracture site located at the lev-bl-jnlrrm one-third tibia. The fracture is crossed by a gbjzmp-yu-clxxwwek tibial medullary tommy, with a locking screw seen near the mid shaft level of the tibia. Proximal tibia and fibula appeared satisfactory. Surgical resection of the distal fibula redemonstrated. [facility] Interface, Rad In Fu ji Speechq - 09/06/2020 3:10 PM EST EXAMINATION: XR TIBIA FIBULA RIGHT 2 VIEWS 09/06/2020 9:24 am HISTORY: ORDERING SYSTEM PROVIDED HISTORY: TIBIAL FRACTURE, TECHNOLOGIST PROVIDED HISTORY: Illness/Other Reason for exam: TIBIAL FRACTURE Cancer History: u Surgery, RadiationHistory: Y Encounter Type: Initial Additional signs and symptoms: TIBIAL FRACTURE ORDERING SYSTEM PROVIDED DIAGNOSIS CODES: COMPARISON: August 23, 2020. FINDINGS: The 2-view study of the right leg shows progressive healing at the tibial shaft fracture site located at the uaf-kv-dcykyx one-third tibia. The fracture is crossed by a ehnyjy-rw-tgxqcroo tibial medullary tommy, with a locking screw seen near the mid shaft level of the tibia. Proximal tibia and fibula appeared satisfactory. Surgical resection of the distal fibula redemonstrated. IMPRESSION: Progressive healing of fracture at the junction of the middle and distal one-third of the right tibia, which is again noted to be immobilized by a khcjjf-ru-floprzan tibial medullary tommy. Stable resection changes distal articular aspect of the fibula. Netli Workstation ID: [id number] [facility] DEBRIDEMENTon 08-23-2020 Darrin Webber PM 08/23/2020 11:25 AM Debridement Consent obtained? verbal Consent given by: patient Risks discussed? procedural risks discussed Immediately prior to the procedure a time out was called Performed by: physician Debridement type: surgical Level of debridement: subcutaneous tissue Post-debridement measurements Length (cm): 0.3 Width (cm): 0.2 Depth (cm): 0.1 Percent debrided: 100% Surface Area (cm^2): 0.06 Area debrided (cm^2): 0.06 Volume (cm^3): 0.01 Tissue and other material debrided: subcutaneous tissue Devitalized tissue debrided: biofilm and slough Instrument(s) utilized: curette Bleeding: small Hemostasis obtained with: pressure Procedural pain (0-10): insensate Post-procedural pain: insensate Response to treatment: procedure was tolerated well [facility] Other 08-23-2020 1. Partial healing o f distal tibial transverse fracture without definitive signs of rigid bony fusion. 2. Grossly intact ankle joint fusion hardware as described. 3. Unchanged tarsal bone configuration. ARR/klb Workstation ID: [id number] [facility] EXAMINATION: XR TIBI A FIBULA RIGHT 2 VIEWS 08/23/2020 8:15 am HISTORY: ORDERING SYSTEM PROVIDED HISTORY: follow up tibial fx, TECHNOLOGIST PROVIDED HISTORY: Illness/Other Reason for exam: follow up tib/fib fx 3 weeks ago Cancer History: u Surgery, RadiationHistory: Y Encounter Type: Subsequent/Follow-up Additional signs and symptoms: ORDERING SYSTEM PROVIDED DIAGNOSIS CODES: COMPARISON: 08/09/2020. FINDINGS: AP and lateral views of right lower leg obtained. There is a stable tibiotalocalcaneal fixation tommy fixated in the mid tibial diaphysis with transverse screw and calcaneus with a longitudinal calcaneal pin. This bridges a distal tibial transverse fracture. There are increasing small amounts of periosteal calcification with subtle signs of rigid bony fusion in a few locations. Fracture plane remains visible. There is a cortical screw also fusing the ankle joint positioned more medially also appear grossly intact. The distal fibula has been resected. The tarsal bones are not visualized or collapsed yet unchanged in appearance. [facility] Interface, Rad In Fu ji Speechq - 08/23/2020 12:55 PM EST EXAMINATION: XR TIBIA FIBULA RIGHT 2 VIEWS 08/23/2020 8:15 am HISTORY: ORDERING SYSTEM PROVIDED HISTORY: follow up tibial fx, TECHNOLOGIST PROVIDED HISTORY: Illness/Other Reason for exam: follow up tib/fib fx 3 weeks ago Cancer History: u Surgery, RadiationHistory: Y Encounter Type: Subsequent/Follow-up Additional signs and symptoms: ORDERING SYSTEM PROVIDED DIAGNOSIS CODES: COMPARISON: 08/09/2020. FINDINGS: AP and lateral views of right lower leg obtained. There is a stable tibiotalocalcaneal fixation tommy fixated in the mid tibial diaphysis with transverse screw and calcaneus with a longitudinal calcaneal pin. This bridges a distal tibial transverse fracture. There are increasing small amounts of periosteal calcification with subtle signs of rigid bony fusion in a few locations. Fracture plane remains visible. There is a cortical screw also fusing the ankle joint positioned more medially also appear grossly intact. The distal fibula has been resected. The tarsal bones are not visualized or collapsed yet unchanged in appearance. IMPRESSION: 1. Partial healing of distal tibial transverse fracture without definitive signs of rigid bony fusion. 2. Grossly intact ankle joint fusion hardware as described. 3. Unchanged tarsal bone configuration. ARR/klb Workstation ID: [id number] [facility] CBC WITH AUTO DIFFERENTIALon 08-09-2020 Basophils (Bld) [#/Vol] 0.02 10*3/uL [facility] Basophils/100 WBC (Bld) 0.3 % [facility] Eosinophils (Bld) [#/Vol] 0.15 10*3/uL [facility] Eosinophils/100 WBC (Bld) 2.4 % [facility] Erythrocyte distribution width (RBC) [Entitic vol] 13.4 % 11.6 - 14.8 % [facility] Hematocrit (Bld) [Volume fraction] 35.1 % Low 41 - 53 % [facility] Hemoglobin (Bld) [Mass/Vol] 11.2 g/dL Low 13.5 - 17.5 g/dL [facility] Immature granulocytes (Bld) [#/Vol] 0.01 10*3/uL [facility] Immature granulocytes/100 WBC (Bld) 0.20 % [facility] Comment on above: The IG parameter is the percentage of metamyelocytes, myelocytes and promyelocytes. An immature granulocyte count (IG) of 1% or more suggests the possibility of infection, an IG count of 3% is very likely related to an infection. Interpretation and review of laboratory results Abnormal [facility] Lymphocytes (Bld) [#/Vol] 0.89 10*3/uL Low [facility] Lymphocytes/100 WBC (Bld) 14.5 % [facility] MCH (RBC) [Entitic mass] 26.4 pg 26 - 34 pg [facility] MCHC (RBC) [Mass/Vol] 31.9 g/dL 31 - 37 g/dL [facility] MCV (RBC) [Entitic vol] 82.8 fL 80 - 100 fL [facility] Monocytes (Bld) [#/Vol] 0.69 10*3/uL [facility] Monocytes/100 WBC (Bld) 11.2 % [facility] Neutrophils (Bld) [#/Vol] 4.38 10*3/uL [facility] Neutrophils/100 WBC (Bld) 71.4 % [facility] Nucleated RBC (Bld) [#/Vol] 0.00 10*3/uL [facility] Nucleated RBC/100 WBC (Bld) [Ratio] 0.0 % [facility] Platelet mean volume (Bld) [Entitic vol] 10.1 fL 9.4 - 12.4 fL [facility] Platelets (Bld) [#/Vol] 230 10*3/uL [facility] RBC (Bld) [#/Vol] 4.24 10*6/uL Low [facility] WBC (Bld) [#/Vol] 6.14 10*3/uL [facility] CRP, Inflammationon 08-09-20 20 CRP [Mass/Vol] mg/L <=10.0 mg/L [facility] Interpretation and review of laboratory results Normal [facility] Comprehensive Metabolic Pane mervin 08-09-2020 Albumin [Mass/Vol] 3.4 g/dL 3.2 - 5.2 g/dL [facility] ALP [Catalytic activity/Vol] 96 U/L 40 - 150 U/L [facility] ALT [Catalytic activity/Vol] 24 U/L 14 - 65 U/L [facility] Anion gap [Moles/Vol] 7 mmol/L Low 10 - 2 0 mmol/L [facility] AST [Catalytic activity/Vol] 15 U/L 0 - 45 U/L [facility] Bilirubin [Mass/Vol] 0.3 mg/dL 0 - 1.3 mg/dL [facility] Calcium [Mass/Vol] 9.4 mg/dL 8.4 - 10. 2 mg/dL [facility] Chloride [Moles/Vol] 110 mmol/L High 98 - 10 8 mmol/L [facility] Creatinine [Mass/Vol] 1.09 mg/dL 0.50 - 1.30 [facility] GFR/1.73 sq M predicted among non-blacks MDRD (S/P/Bld) [Vol rate/Area] The eGFR should be used for monitoring renal function only and not for medication dosing. [facility] GFR/1.73 sq M.predicted CKD-EPI (S/P/Bld) [Vol rate/Area] 75 >=60 mL/min/1.73 m2 [facility] Glucose [Mass/Vol] 46 mg/dL Low 65 - 99 mg/dL [facility] Comment on above: :[id number] CALLED ATTEN TION RESULT ON 08/09/2020 @ 1040 TO AND READ BACK BY [id number] in WOUND CARE HCO3 [Moles/Vol] 28 mmol/L 21 - 32 mmol/L [facility] Interpretation and review of laboratory results Abnormal [facility] Potassium [Moles/Vol] 4.2 mmol/L 3.5 - 5.1 mmol/L [facility] Protein [Mass/Vol] 7.2 g/dL 6 - 8 g/dL [facility] Sodium [Moles/Vol] 141 mmol/L 135 - 145 mmol/L [facility] Urea nitrogen [Mass/Vol] 20 mg/dL 8 - 25 mg/dL [facility] Urea nitrogen/Creatinine [Mass ratio] 18.3 mg/mg [facility] Otheron 08-09-2020 Redemonstration of distal tibial diaphysis fracture, status post ORIF without change in alignment or bridging callus formation. Additional postsurgical findings in the ankle and hindfoot with soft tissue edema. [facility] Workstation ID: [id number] [facility] EXAMINATION: XR TIBI A FIBULA RIGHT 2 VIEWS 08/09/2020 8:58 am HISTORY: ORDERING SYSTEM PROVIDED HISTORY: Follow up distal tibial fracture, TECHNOLOGIST PROVIDED HISTORY: Illness/Other Reason for exam: Follow up distal tibial fracture Cancer History: u Surgery, RadiationHistory: Y Encounter Type: Initial Additional signs and symptoms: n ORDERING SYSTEM PROVIDED DIAGNOSIS CODES: COMPARISON: 08/02/2020. FINDINGS: Two views of the right tibia and fibula were obtained. There is redemonstration of transverse fracture in the distal tibial diaphysis status post placement retrograde intramedullary nail with calcaneal and interlocking screws in place. Fracture line remains visible without bridging callus formation. Postsurgical findings of distal fibular resection and cannulated ankle and subtalar joint screw are again noted. Soft tissue edema is noted around the leg and ankle., [facility] Interface, Rad In Fu ji Speechq - 08/09/2020 12:18 PM EST EXAMINATION: XR TIBIA FIBULA RIGHT 2 VIEWS 08/09/2020 8:58 am HISTORY: ORDERING SYSTEM PROVIDED HISTORY: Follow up distal tibial fracture, TECHNOLOGIST PROVIDED HISTORY: Illness/Other Reason for exam: Follow up distal tibial fracture Cancer History: u Surgery, RadiationHistory: Y Encounter Type: Initial Additional signs and symptoms: n ORDERING SYSTEM PROVIDED DIAGNOSIS CODES: COMPARISON: 08/02/2020. FINDINGS: Two views of the right tibia and fibula were obtained. There is redemonstration of transverse fracture in the distal tibial diaphysis status post placement retrograde intramedullary nail with calcaneal and interlocking screws in place. Fracture line remains visible without bridging callus formation. Postsurgical findings of distal fibular resection and cannulated ankle and subtalar joint screw are again noted. Soft tissue edema is noted around the leg and ankle., IMPRESSION: Redemonstration of distal tibial diaphysis fracture, status post ORIF without change in alignment or bridging callus formation. Additional postsurgical findings in the ankle and hindfoot with soft tissue edema. [facility] Workstation ID: [id number] [facility] Sedimentation Rateon 020 ESR (Bld) [Velocity] 32 mm/h [facility] Interpretation and review of laboratory results Abnormal [facility] DEBRIDEMENTon 08-02-2020 Darrin Webber PM 08/02/2020 11:33 AM Debridement Consent obtained? verbal Consent given by: patient Risks discussed? procedural risks discussed Immediately prior to the procedure a time out was called Performed by: physician Debridement type: surgical Level of debridement: subcutaneous tissue Pain control: none Post-debridement measurements Length (cm): 1 Width (cm): 0.3 Depth (cm): 0.1 Percent debrided: 100% Surface Area (cm^2): 0.3 Area debrided (cm^2): 0.3 Volume (cm^3): 0.03 Tissue and other material debrided: subcutaneous tissue Devitalized tissue debrided: biofilm Instrument(s) utilized: curette Bleeding: small Hemostasis obtained with: pressure Procedural pain (0-10): insensate Post-procedural pain: insensate Response to treatment: procedure was tolerated well [facility] Otheron 08-02-2020 1. New acute transverse fracture involving the distal diaphyseal shaft is in good alignment and surrounds an intact retrograde intramedullary tommy extending through the calcaneus, talus into the mid tibial region with a single proximal tibial screw. 2. Stable orthopedic fixation of the ankle as described above. 3. Prior resection of the distal fibula redemonstrated. 4. Some mild soft tissue edema of the lower extremity including the ankle. GJT/Douguo Workstation ID: [id number] [facility] EXAMINATION: FOUR VIEWS OF THE RIGHT TIBIA AND FIBULA AND 3 VIEWS OF THE RIGHT ANKLE, 08/02/2020 COMPARISON: Right tibia fibula, 07/05/2020. HISTORY: Injury/Trauma or Illness?:Injury/Trauma How long have you had these symptoms (acute/chronic)?:Acute pain Injury/Trauma or Illness?:Injury/Trauma How long have you had these symptoms (acute/chronic)?:Acute Reason for exam?:PAIN AFTER PT HEARD A POP LWR LEG History of cancer?:u Surgeries, chemotherapy, or radiation?:Y M25.571 Pain and swelling of right anklepain FINDINGS: RIGHT TIBIA FIBULA: Retrograde intramedullary tommy through the calcaneus, talus extending to the mid tibia with a single proximal tibial screw redemonstrated. Separate retrograde orthopedic screw extending through the calcaneus, talus and to the distal tibia. There is a new acute transverse fracture involving the hcs-fu-quojba diaphyseal shaft of the tibia surrounding the intact intramedullary tommy. Additional lag screw through the calcaneus. Resection of the distal fibula redemonstrated. Some mild generalized soft tissue edema. RIGHT ANKLE: Orthopedic changes about the proximal foot redemonstrated as described above. Severe degenerative changes of the visualized midfoot. Prominent inferior and moderate superior calcaneal spur redemonstrated. Some bony fragmentation along the lateral aspect of the ankle and some ossification along the plantar fascial region redemonstrated. Soft tissue edema about the ankle. [facility] Interface, Rad In Fu ji Speechq - 08/02/2020 6:18 PM EDT EXAMINATION: FOUR VIEWS OF THE RIGHT TIBIA AND FIBULA AND 3 VIEWS OF THE RIGHT ANKLE, 08/02/2020 COMPARISON: Right tibia fibula, 07/05/2020. HISTORY: Injury/Trauma or Illness?:Injury/Trauma How long have you had these symptoms (acute/chronic)?:Acute pain Injury/Trauma or Illness?:Injury/Trauma How long have you had these symptoms (acute/chronic)?:Acute Reason for exam?:PAIN AFTER PT HEARD A POP LWR LEG History of cancer?:u Surgeries, chemotherapy, or radiation?:Y M25.571 Pain and swelling of right anklepain FINDINGS: RIGHT TIBIA FIBULA: Retrograde intramedullary tommy through the calcaneus, talus extending to the mid tibia with a single proximal tibial screw redemonstrated. Separate retrograde orthopedic screw extending through the calcaneus, talus and to the distal tibia. There is a new acute transverse fracture involving the ihl-em-tjmygq diaphyseal shaft of the tibia surrounding the intact intramedullary tommy. Additional lag screw through the calcaneus. Resection of the distal fibula redemonstrated. Some mild generalized soft tissue edema. RIGHT ANKLE: Orthopedic changes about the proximal foot redemonstrated as described above. Severe degenerative changes of the visualized midfoot. Prominent inferior and moderate superior calcaneal spur redemonstrated. Some bony fragmentation along the lateral aspect of the ankle and some ossification along the plantar fascial region redemonstrated. Soft tissue edema about the ankle. IMPRESSION: 1. New acute transverse fracture involving the distal diaphyseal shaft is in good alignment and surrounds an intact retrograde intramedullary tommy extending through the calcaneus, talus into the mid tibial region with a single proximal tibial screw. 2. Stable orthopedic fixation of the ankle as described above. 3. Prior resection of the distal fibula redemonstrated. 4. Some mild soft tissue edema of the lower extremity including the ankle. RICHARDT/ges Workstation ID: [id number] [facility] DEBRIDEMENTon 07-12-2020 Darrin Webber 07/12/2020 10:40 PM Debridement Consent obtained? verbal Consent given by: patient Risks discussed? procedural risks discussed Immediately prior to the procedure a time out was called Performed by: physician Debridement type: surgical Level of debridement: subcutaneous tissue Pain control: none Post-debridement measurements Length (cm): 1 Width (cm): 0.3 Depth (cm): 0.1 Percent debrided: 100% Surface Area (cm^2): 0.3 Area debrided (cm^2): 0.3 Volume (cm^3): 0.03 Tissue and other material debrided: subcutaneous tissue Devitalized tissue debrided: biofilm, callus and slough Instrument(s) utilized: curette Bleeding: small Hemostasis obtained with: pressure Procedural pain (0-10): insensate Post-procedural pain: insensate Response to treatment: procedure was tolerated well [facility] DEBRIDEMENTon 07-05-2020 Darrin Webber PM 07/05/2020 11:27 AM Debridement Consent obtained? verbal Consent given by: patient Risks discussed? procedural risks discussed Performed by: physician Debridement type: surgical Level of debridement: subcutaneous tissue Pain control: none Post-debridement measurements Length (cm): 1.5 Width (cm): 0.5 Depth (cm): 0.2 Percent debrided: 100% Surface Area (cm^2): 0.75 Area debrided (cm^2): 0.75 Volume (cm^3): 0.15 Tissue and other material debrided: subcutaneous tissue Devitalized tissue debrided: biofilm and slough Instrument(s) utilized: curette Bleeding: small Hemostasis obtained with: pressure Procedural pain (0-10): insensate Post-procedural pain: insensate Response to treatment: procedure was tolerated well [facility] Other 07-05-2020 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 Workstation ID: [id number] [facility] EXAMINATION: XR TIBI A FIBULA RIGHT 2 VIEWS; XR FOOT RIGHT 3+ VIEWS (STANDARD) 07/05/2020 9:39 am HISTORY: ORDERING SYSTEM PROVIDED HISTORY: charcot recon, TECHNOLOGIST PROVIDED HISTORY: Illness/Other Reason for exam: rt foot pain Cancer History: u Surgery, RadiationHistory: Y Encounter Type: Initial Additional signs and symptoms: recon of rt foot charot foot ORDERING SYSTEM PROVIDED DIAGNOSIS CODES: E11.610 Charcot foot due to diabetes mellitus (HCC) COMPARISON: 06/21/2020 FINDINGS: BONES: Again demonstrated is stable ankle fusion. Resection of the distal fibula. Placement of a retrograde intramedullary tommy through the calcaneus, talus and tibia pinned proximally with a single screw pinned distally with a dynamic screw. Additional lag screw through the hindfoot. There is marked degenerative changes of the midfoot and forefoot with lateral subluxation of the metatarsals as well as a fracture through the base of the 5th metatarsal, stable. Severe degenerative changes of the 1st metatarsophalangeal joint. SOFT TISSUES: Mild diffuse soft tissue swelling EFFUSION: None visible. OTHER: Negative. [facility] Interface, Rad In Fu ji Speechq - 07/05/2020 10:33 AM EDT EXAMINATION: XR TIBIA FIBULA RIGHT 2 VIEWS; XR FOOT RIGHT 3+ VIEWS (STANDARD) 07/05/2020 9:39 am HISTORY: ORDERING SYSTEM PROVIDED HISTORY: charcot recon, TECHNOLOGIST PROVIDED HISTORY: Illness/Other Reason for exam: rt foot pain Cancer History: u Surgery, RadiationHistory: Y Encounter Type: Initial Additional signs and symptoms: recon of rt foot charot foot ORDERING SYSTEM PROVIDED DIAGNOSIS CODES: E11.610 Charcot foot due to diabetes mellitus (HCC) COMPARISON: 06/21/2020 FINDINGS: BONES: Again demonstrated is stable ankle fusion. Resection of the distal fibula. Placement of a retrograde intramedullary tommy through the calcaneus, talus and tibia pinned proximally with a single screw pinned distally with a dynamic screw. Additional lag screw through the hindfoot. There is marked degenerative changes of the midfoot and forefoot with lateral subluxation of the metatarsals as well as a fracture through the base of the 5th metatarsal, stable. Severe degenerative changes of the 1st metatarsophalangeal joint. SOFT TISSUES: Mild diffuse soft tissue swelling EFFUSION: None visible. OTHER: Negative. 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 verbal Consent given by: patient Risks discussed? procedural risks discussed Immediately prior to the procedure a time out was called Performed by: physician Debridement type: surgical Level of debridement: subcutaneous tissue Pain control: none Post-debridement measurements Length (cm): 2 Width (cm): 0.8 Depth (cm): 0.2 Percent debrided: 100% Surface Area (cm^2): 1.6 Area debrided (cm^2): 1.6 Volume (cm^3): 0.32 Tissue and other material debrided: subcutaneous tissue Devitalized tissue debrided: biofilm, callus and slough Instrument(s) utilized: curette Bleeding: small Hemostasis obtained with: pressure Procedural pain (0-10): insensate Post-procedural pain: insensate Response to treatment: procedure was tolerated well [facility] Otheron 06-21-2020 Stable ankle fusion Workstation ID: [id number] [facility] EXAMINATION: XR FOOT RIGHT 3+ VIEWS (STANDARD); XR TIBIA FIBULA RIGHT 2 VIEWS 06/21/2020 8:23 am HISTORY: ORDERING SYSTEM PROVIDED HISTORY: Post op fusion, TECHNOLOGIST PROVIDED HISTORY: Illness/Other Reason for exam: Chronic ulcer of right great toe. Cancer History: u Surgery, RadiationHistory: Y Encounter Type: Initial Additional signs and symptoms: ORDERING SYSTEM PROVIDED DIAGNOSIS CODES: L97.519 Chronic ulcer of right great toe, with unspecified severity (HCC) FINDINGS: BONES: Stable ankle fusion utilizing retrograde intramedullary tommy and fixation device through the calcaneus. Single lag screw. No mechanical failure. Severe degenerative changes throughout the hindfoot midfoot and forefoot. Transverse fracture proximal diaphysis of the 5th metatarsal. Remote resection head the 2nd proximal phalanx. Stable marked remodeling of the tarsal bones.. Stable resection of the distal fibula. No acute fracture or dislocation SOFT TISSUES: No visible soft tissue swelling or radiopaque foreign body. EFFUSION: None visible. OTHER: Negative. [facility] Interface, Rad In Fu ji Speechq - 06/21/2020 9:13 AM EDT EXAMINATION: XR FOOT RIGHT 3+ VIEWS (STANDARD); XR TIBIA FIBULA RIGHT 2 VIEWS 06/21/2020 8:23 am HISTORY: ORDERING SYSTEM PROVIDED HISTORY: Post op fusion, TECHNOLOGIST PROVIDED HISTORY: Illness/Other Reason for exam: Chronic ulcer of right great toe. Cancer History: u Surgery, RadiationHistory: Y Encounter Type: Initial Additional signs and symptoms: ORDERING SYSTEM PROVIDED DIAGNOSIS CODES: L97.519 Chronic ulcer of right great toe, with unspecified severity (HCC) FINDINGS: BONES: Stable ankle fusion utilizing retrograde intramedullary tommy and fixation device through the calcaneus. Single lag screw. No mechanical failure. Severe degenerative changes throughout the hindfoot midfoot and forefoot. Transverse fracture proximal diaphysis of the 5th metatarsal. Remote resection head the 2nd proximal phalanx. Stable marked remodeling of the tarsal bones.. Stable resection of the distal fibula. No acute fracture or dislocation SOFT TISSUES: No visible soft tissue swelling or radiopaque foreign body. EFFUSION: None visible. OTHER: Negative. IMPRESSION: Stable ankle fusion Workstation ID: [id number] [facility] DEBRIDEMENTon 06-07-2020 Darrin Webber 06/07/2020 11:03 PM Debridement Consent obtained? verbal Consent given by: patient Risks discussed? procedural risks discussed Immediately prior to the procedure a time out was called Performed by: physician Debridement type: surgical Level of debridement: subcutaneous tissue Post-debridement measurements Length (cm): 0.5 Width (cm): 1 Depth (cm): 0.2 Percent debrided: 100% Surface Area (cm^2): 0.5 Area debrided (cm^2): 0.5 Volume (cm^3): 0.1 Tissue and other material debrided: subcutaneous tissue Devitalized tissue debrided: biofilm, callus and fibrin Instrument(s) utilized: curette Bleeding: none Hemostasis obtained with: pressure Procedural pain (0-10): insensate Post-procedural pain: insensate Response to treatment: procedure was tolerated well [facility] CBC WITH AUTO DIFFERENTIALon 05-24-2020 Basophils (Bld) [#/Vol] 0.02 10*3/uL [facility] Basophils/100 WBC (Bld) 0.5 % [facility] Eosinophils (Bld) [#/Vol] 0.14 10*3/uL [facility] Eosinophils/100 WBC (Bld) 3.4 % [facility] Erythrocyte distribution width (RBC) [Entitic vol] 13.2 % 11.6 - 14.8 % [facility] Hematocrit (Bld) [Volume fraction] 32.4 % Low 41 - 53 % [facility] Hemoglobin (Bld) [Mass/Vol] 10.8 g/dL Low 13.5 - 17.5 g/dL [facility] Immature granulocytes (Bld) [#/Vol] 0.01 10*3/uL [facility] Immature granulocytes/100 WBC (Bld) 0.20 % [facility] Comment on above: The IG parameter is the percentage of metamyelocytes, myelocytes and promyelocytes. An immature granulocyte count (IG) of 1% or more suggests the possibility of infection, an IG count of 3% is very likely related to an infection. Interpretation and review of laboratory results Abnormal [facility] Lymphocytes (Bld) [#/Vol] 0.66 10*3/uL Low [facility] Lymphocytes/100 WBC (Bld) 16.1 % [facility] MCH (RBC) [Entitic mass] 28.4 pg 26 - 34 pg [facility] MCHC (RBC) [Mass/Vol] 33.3 g/dL 31 - 37 g/dL [facility] MCV (RBC) [Entitic vol] 85.3 fL 80 - 100 fL [facility] Monocytes (Bld) [#/Vol] 0.51 10*3/uL [facility] Monocytes/100 WBC (Bld) 12.5 % [facility] Neutrophils (Bld) [#/Vol] 2.75 10*3/uL [facility] Neutrophils/100 WBC (Bld) 67.3 % [facility] Nucleated RBC (Bld) [#/Vol] 0.00 10*3/uL [facility] Nucleated RBC/100 WBC (Bld) [Ratio] 0.0 % [facility] Platelet mean volume (Bld) [Entitic vol] 10.8 fL 9.4 - 12.4 fL [facility] Platelets (Bld) [#/Vol] 169 10*3/uL [facility] RBC (Bld) [#/Vol] 3.80 10*6/uL Low [facility] WBC (Bld) [#/Vol] 4.09 10*3/uL Low [facility] CRP, Inflammationon 05-24-20 20 CRP [Mass/Vol] 7.0 mg/L <=10.0 [facility] Interpretation and review of laboratory results Normal [facility] Comprehensive Metabolic Pane mervin 05-24-2020 Albumin [Mass/Vol] 3.2 g/dL 3.2 - 5.2 g/dL [facility] ALP [Catalytic activity/Vol] 95 U/L 40 - 150 U/L [facility] ALT [Catalytic activity/Vol] 21 U/L 14 - 65 U/L [facility] Anion gap [Moles/Vol] 9 mmol/L Low 10 - 2 0 mmol/L [facility] AST [Catalytic activity/Vol] 14 U/L 0 - 45 U/L [facility] Bilirubin [Mass/Vol] 0.3 mg/dL 0 - 1.3 mg/dL [facility] Calcium [Mass/Vol] 9.3 mg/dL 8.4 - 10. 2 mg/dL [facility] Chloride [Moles/Vol] 110 mmol/L High 98 - 10 8 mmol/L [facility] Creatinine [Mass/Vol] 0.84 mg/dL 0.50 - 1.30 [facility] GFR/1.73 sq M predicted among non-blacks MDRD (S/P/Bld) [Vol rate/Area] The eGFR should be used for monitoring renal function only and not for medication dosing. [facility] GFR/1.73 sq M.predicted CKD-EPI (S/P/Bld) [Vol rate/Area] 97 >=60 mL/min/1.73 m2 [facility] Glucose [Mass/Vol] 171 mg/dL High 65 - 99 mg/dL [facility] HCO3 [Moles/Vol] 26 mmol/L 21 - 32 mmol/L [facility] Interpretation and review of laboratory results Abnormal [facility] Potassium [Moles/Vol] 4.2 mmol/L 3.5 - 5.1 mmol/L [facility] Protein [Mass/Vol] 6.6 g/dL 6 - 8 g/dL [facility] Sodium [Moles/Vol] 141 mmol/L 135 - 145 mmol/L [facility] Urea nitrogen [Mass/Vol] 17 mg/dL 8 - 25 mg/dL [facility] Urea nitrogen/Creatinine [Mass ratio] 20.2 mg/mg High [facility] DEBRIDEMENTon 05-24-2020 Darrin Webber 05/24/2020 11:18 PM Wound Care Debridement Timeout: Verbal Consent obtained?: Yes Written Consent obtained?: Yes Consent given by: Patient Immediately prior to procedure a time out was called to verify the correct patient, procedure, equipment, support service tech and site/side marked as required Debridement Procedure: Debridement Performed for Assessment: Right great toe Performed by: Physician Debridement Type: Surgical Pain Control: N/A Level: Skin/Subcutaneous Tissue Post Debridement Measurements: Length (cm): 1 Width (cm): 2 Depth (cm): 0.2 Area (sq cm): 2 Volume (cm3): 0.4 Percent Debrided: 100 Total Area Debrided (sq cm): 2 Tissue and other material debrided: Subcutaneous Devitalized tissue debrided: Biofilm and Necrotic/Eschar Instrument: Curette Bleeding: Minimal Hemostasis Achieved: Pressure Procedural Pain: Insensate Post Procedural Pain: Insensate Response to Treatment: Procedure was tolerated well [facility] Otheron 05-24-2020 Postsurgical changes without acute osseous abnormality. Workstation ID: [id number] [facility] EXAMINATION: XR FOOT RIGHT 3+ VIEWS (STANDARD); XR ANKLE RIGHT 3+ VIEWS (STANDARD) 05/24/2020 11:03 am HISTORY: ORDERING SYSTEM PROVIDED HISTORY: 3 weeks post op, TECHNOLOGIST PROVIDED HISTORY: Illness/Other Reason for exam: CHARCOTS JOINT OF RIGHT FOOY Cancer History: u Surgery, RadiationHistory: Y Encounter Type: Ongoing Additional signs and symptoms: ULCER ORDERING SYSTEM PROVIDED DIAGNOSIS CODES: M14.671 Charcot's joint of right foot COMPARISON: 05/01/2020 FINDINGS: Fiberglass cast material overlies the foot and ankle in limits detailed evaluation. There are postsurgical changes from hindfoot arthrodesis and distal fibular resection. The hardware appears intact. No evidence of loosening. There is advanced midfoot the collapse likely representing underlying Charcot joint and underlying correction surgery.. [facility] Interface, Rad In Fu ji Speechq - 05/24/2020 2:33 PM EDT EXAMINATION: XR FOOT RIGHT 3+ VIEWS (STANDARD); XR ANKLE RIGHT 3+ VIEWS (STANDARD) 05/24/2020 11:03 am HISTORY: ORDERING SYSTEM PROVIDED HISTORY: 3 weeks post op, TECHNOLOGIST PROVIDED HISTORY: Illness/Other Reason for exam: CHARCOTS JOINT OF RIGHT FOOY Cancer History: u Surgery, RadiationHistory: Y Encounter Type: Ongoing Additional signs and symptoms: ULCER ORDERING SYSTEM PROVIDED DIAGNOSIS CODES: M14.671 Charcot's joint of right foot COMPARISON: 05/01/2020 FINDINGS: Fiberglass cast material overlies the foot and ankle in limits detailed evaluation. There are postsurgical changes from hindfoot arthrodesis and distal fibular resection. The hardware appears intact. No evidence of loosening. There is advanced midfoot the collapse likely representing underlying Charcot joint and underlying correction surgery.. IMPRESSION: Postsurgical changes without acute osseous abnormality. Workstation ID: [id number] [facility] Sedimentation Rateon 020 ESR (Bld) [Velocity] 36 mm/h High [facility] Interpretation and review of laboratory results Abnormal [facility] CBC WITH AUTO DIFFERENTIALon 05-03-2020 Basophils (Bld) [#/Vol] 0.03 10*3/uL [facility] Basophils/100 WBC (Bld) 0.4 % [facility] Eosinophils (Bld) [#/Vol] 0.15 10*3/uL [facility] Eosinophils/100 WBC (Bld) 2.2 % [facility] Erythrocyte distribution width (RBC) [Entitic vol] 13.5 % 11.6 - 14.8 % [facility] Hematocrit (Bld) [Volume fraction] 30.0 % Low 41 - 53 % [facility] Hemoglobin (Bld) [Mass/Vol] 9.8 g/dL Low 13.5 - 17.5 g/dL [facility] Immature granulocytes (Bld) [#/Vol] 0.02 10*3/uL [facility] Immature granulocytes/100 WBC (Bld) 0.30 % [facility] Comment on above: The IG parameter is the percentage of metamyelocytes, myelocytes and promyelocytes. An immature granulocyte count (IG) of 1% or more suggests the possibility of infection, an IG count of 3% is very likely related to an infection. Interpretation and review of laboratory results Abnormal [facility] Lymphocytes (Bld) [#/Vol] 0.89 10*3/uL Low [facility] Lymphocytes/100 WBC (Bld) 13.1 % [facility] MCH (RBC) [Entitic mass] 28.3 pg 26 - 34 pg [facility] MCHC (RBC) [Mass/Vol] 32.7 g/dL 31 - 37 g/dL [facility] MCV (RBC) [Entitic vol] 86.7 fL 80 - 100 fL [facility] Monocytes (Bld) [#/Vol] 0.91 10*3/uL High [facility] Monocytes/100 WBC (Bld) 13.4 % [facility] Neutrophils (Bld) [#/Vol] 4.78 10*3/uL [facility] Neutrophils/100 WBC (Bld) 70.6 % [facility] Nucleated RBC (Bld) [#/Vol] 0.00 10*3/uL [facility] Nucleated RBC/100 WBC (Bld) [Ratio] 0.0 % [facility] Platelet mean volume (Bld) [Entitic vol] 11.8 fL 9.4 - 12.4 fL [facility] Platelets (Bld) [#/Vol] 139 10*3/uL Low [facility] RBC (Bld) [#/Vol] 3.46 10*6/uL Low [facility] WBC (Bld) [#/Vol] 6.78 10*3/uL [facility] CRP, Inflammationon 05-03-20 20 CRP [Mass/Vol] 92.3 mg/L High <=10.0 [facility] Comprehensive Metabolic Pane mervin 05-03-2020 Albumin [Mass/Vol] 3.0 g/dL Low 3.2 - 5.2 g/dL [facility] ALP [Catalytic activity/Vol] 52 U/L 40 - 150 U/L [facility] ALT [Catalytic activity/Vol] 11 U/L Low 14 - 65 U/L [facility] Anion gap [Moles/Vol] 9 mmol/L Low 10 - 2 0 mmol/L [facility] AST [Catalytic activity/Vol] 11 U/L 0 - 45 U/L [facility] Bilirubin [Mass/Vol] 0.3 mg/dL 0 - 1.3 mg/dL [facility] Calcium [Mass/Vol] 8.1 mg/dL Low 8.4 - 10. 2 mg/dL [facility] Chloride [Moles/Vol] 106 mmol/L 98 - 10 8 mmol/L [facility] Creatinine [Mass/Vol] 1.42 mg/dL High 0.50 - 1.30 [facility] GFR/1.73 sq M predicted among non-blacks MDRD (S/P/Bld) [Vol rate/Area] The eGFR should be used for monitoring renal function only and not for medication dosing. [facility] GFR/1.73 sq M.predicted CKD-EPI (S/P/Bld) [Vol rate/Area] 54 Low >=60 mL/min/1.73 m2 [facility] Glucose [Mass/Vol] 157 mg/dL High 65 - 99 mg/dL [facility] HCO3 [Moles/Vol] 27 mmol/L 21 - 32 mmol/L [facility] Potassium [Moles/Vol] 4.3 mmol/L 3.5 - 5.1 mmol/L [facility] Protein [Mass/Vol] 6.3 g/dL 6 - 8 g/dL [facility] Sodium [Moles/Vol] 138 mmol/L 135 - 145 mmol/L [facility] Urea nitrogen [Mass/Vol] 29 mg/dL High 8 - 25 mg/dL [facility] Urea nitrogen/Creatinine [Mass ratio] 20.4 mg/mg High [facility] Otheron 05-03-2020 Interpretation and review of laboratory results Abnormal [facility] POC Glucoseon 05-03-2020 Glucose [Mass/Vol] 248 mg/dL High 65 - 99 mg/dL [facility] Interpretation and review of laboratory results Abnormal [facility] Glucose [Mass/Vol] 180 mg/dL High 65 - 99 mg/dL [facility] Interpretation and review of laboratory results Abnormal [facility] Sedimentation Rateon 07-31-2 020 ESR (Bld) [Velocity] 45 mm/h High [facility] Interpretation and review of laboratory results Abnormal [facility] Basic Metabolic Panelon 04-05 Anion gap [Moles/Vol] 11 mmol/L 10 - 2 0 mmol/L [facility] Calcium [Mass/Vol] 8.3 mg/dL Low 8.4 - 10. 2 mg/dL [facility] Chloride [Moles/Vol] 106 mmol/L 98 - 10 8 mmol/L [facility] Creatinine [Mass/Vol] 1.51 mg/dL High 0.50 - 1.30 [facility] GFR/1.73 sq M predicted among non-blacks MDRD (S/P/Bld) [Vol rate/Area] The eGFR should be used for monitoring renal function only and not for medication dosing. [facility] GFR/1.73 sq M.predicted CKD-EPI (S/P/Bld) [Vol rate/Area] 51 Low >=60 mL/min/1.73 m2 [facility] Glucose [Mass/Vol] 262 mg/dL High 65 - 99 mg/dL [facility] HCO3 [Moles/Vol] 28 mmol/L 21 - 32 mmol/L [facility] Interpretation and review of laboratory results Abnormal [facility] Potassium [Moles/Vol] 5.1 mmol/L 3.5 - 5.1 mmol/L [facility] Sodium [Moles/Vol] 140 mmol/L 135 - 145 mmol/L [facility] Urea nitrogen [Mass/Vol] 22 mg/dL 8 - 25 mg/dL [facility] Urea nitrogen/Creatinine [Mass ratio] 14.6 mg/mg [facility] CBC WITH AUTO DIFFERENTIALon 05-02-2020 Basophils (Bld) [#/Vol] 0.02 10*3/uL [facility] Basophils/100 WBC (Bld) 0.2 % [facility] Eosinophils (Bld) [#/Vol] 0.05 10*3/uL [facility] Eosinophils/100 WBC (Bld) 0.6 % [facility] Erythrocyte distribution width (RBC) [Entitic vol] 13.3 % 11.6 - 14.8 % [facility] Hematocrit (Bld) [Volume fraction] 30.8 % Low 41 - 53 % [facility] Hemoglobin (Bld) [Mass/Vol] 10.3 g/dL Low 13.5 - 17.5 g/dL [facility] Immature granulocytes (Bld) [#/Vol] 0.03 10*3/uL [facility] Immature granulocytes/100 WBC (Bld) 0.40 % [facility] Comment on above: The IG parameter is the percentage of metamyelocytes, myelocytes and promyelocytes. An immature granulocyte count (IG) of 1% or more suggests the possibility of infection, an IG count of 3% is very likely related to an infection. Interpretation and review of laboratory results Abnormal [facility] Lymphocytes (Bld) [#/Vol] 0.73 10*3/uL Low [facility] Lymphocytes/100 WBC (Bld) 8.7 % [facility] MCH (RBC) [Entitic mass] 28.8 pg 26 - 34 pg [facility] MCHC (RBC) [Mass/Vol] 33.4 g/dL 31 - 37 g/dL [facility] MCV (RBC) [Entitic vol] 86.0 fL 80 - 100 fL [facility] Monocytes (Bld) [#/Vol] 1.03 10*3/uL High [facility] Monocytes/100 WBC (Bld) 12.3 % [facility] Neutrophils (Bld) [#/Vol] 6.51 10*3/uL [facility] Neutrophils/100 WBC (Bld) 77.8 % [facility] Nucleated RBC (Bld) [#/Vol] 0.00 10*3/uL [facility] Nucleated RBC/100 WBC (Bld) [Ratio] 0.0 % [facility] Platelet mean volume (Bld) [Entitic vol] 11.7 fL 9.4 - 12.4 fL [facility] Platelets (Bld) [#/Vol] 163 10*3/uL [facility] RBC (Bld) [#/Vol] 3.58 10*6/uL Low [facility] WBC (Bld) [#/Vol] 8.37 10*3/uL [facility] POC Glucoseon 05-02-2020 Glucose [Mass/Vol] 195 mg/dL High 65 - 99 mg/dL [facility] Interpretation and review of laboratory results Abnormal [facility] Glucose [Mass/Vol] 179 mg/dL High 65 - 99 mg/dL [facility] Interpretation and review of laboratory results Abnormal [facility] Glucose [Mass/Vol] 289 mg/dL High 65 - 99 mg/dL [facility] Interpretation and review of laboratory results Abnormal [facility] Glucose [Mass/Vol] 266 mg/dL High 65 - 99 mg/dL [facility] Interpretation and review of laboratory results Abnormal [facility] URINALYSISon 05-02-2020 Bacteria Auto Ql (U) Many Abnormal None Se en /hpf [facility] Bilirubin Ql (U) Negative Negative [facility] th Clarity Refractometry automated (U) Cloudy Abnormal Clear [facility] Color (U) Yellow Colorless, Yellow [facility] Crystals.amorphous Computer assisted (U) [#/Area] Few Abnormal None Seen, Rare /hpf [facility] Epithelial cells.squamous Auto (Urine sed) [#/Area] <1 [facility] Glucose Auto test strip (U) [Mass/Vol] Negative Negative mg/dL [facility] Hemoglobin Auto test strip Ql (U) Small Abnormal Negative [facility] Hyaline casts Auto (Urine sed) [#/Area] 11-20 Abnormal 0 - 2 /lpf [facility] Interpretation and review of laboratory results Abnormal [facility] Ketones (U) [Mass/Vol] Trace Abnormal Negative mg/dL [facility] Leukocyte clumps Auto (Urine sed) [#/Area] Many Abnormal None Seen /hpf [facility] Leukocyte esterase Auto test strip Ql (U) Large Abnormal Negative [facility] Mucus Auto (Urine sed) [#/Area] Rare None Seen, Rare /lpf [facility] Nitrite Auto test strip Ql (U) Negative Negative [facility] pH (U) 5.0 [pH] [facility] Protein (U) [Mass/Vol] 100 Abnormal Negative mg/dL [facility] RBC Auto (Urine sed) [#/Area] 16 High [facility] Specific gravity (U) [Rel density] 1.031 High [facility] Transitional cells Computer assisted (U) [#/Area] <1 [facility] Urobilinogen (U) [Mass/Vol] <2.0 <2.0 mg/dL [facility] WBC Auto (Urine sed) [#/Area] 84 High [facility] Microscopic examination is performed on all urinalysis samples and only positive findings are reported. The test for blood on the chemical analytic portion of urinalysis may also be positive due to hemoglobinuria and myoglobinuria and if red blood cells are present they are quantified by microscopic examination. [facility] XR OR Ankle Right 3+ Viewson 05-02-2020 EXAMINATION: XR OR ANKLE RIGHT 3+ VIEWS HISTORY: ORDERING SYSTEM PROVIDED HISTORY: right ankle Arthrodesis in OR, TECHNOLOGIST PROVIDED HISTORY: Injury/Trauma Reason for exam: right ankle arthrodesis in OR Encounter Type: Ongoing Mechanism of injury: right ankle arthrodesis in OR Fluoro dose in mGy: 18.69 COMPARISON: None. TECHNIQUE: Fluoro Dose Ka,r mGy: Fluoro dose in Ka,r mGy: 18.69. FINDINGS: Fourteen spot fluoroscopic images were obtained in the operating room. Fluoroscopic technique limits osseous and soft tissue detail. Images demonstrate hindfoot and ankle joint arthrodesis with tibial intramedullary tommy extending through the calcaneus and talus. An additional cannulated lag screw is present on the final images, and a transcalcaneal fixation hardware is present. There is a proximal interlocking screw. A distal fibular osteotomy is present. Alignment appears anatomic. [facility] Interface, Rad In Fu ji Speechq - 05/02/2020 4:31 PM EDT EXAMINATION: XR OR ANKLE RIGHT 3+ VIEWS HISTORY: ORDERING SYSTEM PROVIDED HISTORY: right ankle Arthrodesis in OR, TECHNOLOGIST PROVIDED HISTORY: Injury/Trauma Reason for exam: right ankle arthrodesis in OR Encounter Type: Ongoing Mechanism of injury: right ankle arthrodesis in OR Fluoro dose in mGy: 18.69 COMPARISON: None. TECHNIQUE: Fluoro Dose Ka,r mGy: Fluoro dose in Ka,r mGy: 18.69. FINDINGS: Fourteen spot fluoroscopic images were obtained in the operating room. Fluoroscopic technique limits osseous and soft tissue detail. Images demonstrate hindfoot and ankle joint arthrodesis with tibial intramedullary tommy extending through the calcaneus and talus. An additional cannulated lag screw is present on the final images, and a transcalcaneal fixation hardware is present. There is a proximal interlocking screw. A distal fibular osteotomy is present. Alignment appears anatomic. IMPRESSION: Spot fluoroscopic images obtained during right ankle arthrodesis. Please see dictated operative report for full details. [employer] Workstation ID: [id number] [facility] Spot fluoroscopic images obtained during right ankle arthrodesis. Please see dictated operative report for full details. [facility]/[employer] Workstation ID: [id number] [facility] Basic Metabolic Panelon 04-04 Anion gap [Moles/Vol] 9 mmol/L Low 10 - 2 0 mmol/L [facility] Calcium [Mass/Vol] 9.1 mg/dL 8.4 - 10. 2 mg/dL [facility] Chloride [Moles/Vol] 110 mmol/L High 98 - 10 8 mmol/L [facility] Creatinine [Mass/Vol] 0.94 mg/dL 0.50 - 1.30 [facility] GFR/1.73 sq M predicted among non-blacks MDRD (S/P/Bld) [Vol rate/Area] The eGFR should be used for monitoring renal function only and not for medication dosing. [facility] GFR/1.73 sq M.predicted CKD-EPI (S/P/Bld) [Vol rate/Area] 90 >=60 mL/min/1.73 m2 [facility] Glucose [Mass/Vol] 114 mg/dL High 65 - 99 mg/dL [facility] HCO3 [Moles/Vol] 27 mmol/L 21 - 32 mmol/L [facility] Interpretation and review of laboratory results Abnormal [facility] Potassium [Moles/Vol] 4.4 mmol/L 3.5 - 5.1 mmol/L [facility] Sodium [Moles/Vol] 142 mmol/L 135 - 145 mmol/L [facility] Urea nitrogen [Mass/Vol] 16 mg/dL 8 - 25 mg/dL [facility] Urea nitrogen/Creatinine [Mass ratio] 17.0 mg/mg [facility] Hemoglobin and Hematocriton 05-01-2020 Hematocrit (Bld) [Volume fraction] 37.8 % Low 41 - 53 % [facility] Hemoglobin (Bld) [Mass/Vol] 12.6 g/dL Low 13.5 - 17.5 g/dL [facility] Interpretation and review of laboratory results Abnormal [facility] POC Glucoseon 05-01-2020 Glucose [Mass/Vol] 209 mg/dL High 65 - 99 mg/dL [facility] Interpretation and review of laboratory results Abnormal [facility] Glucose [Mass/Vol] 205 mg/dL High 65 - 99 mg/dL [facility] Interpretation and review of laboratory results Abnormal [facility] PT/INRon 05-01-2020 INR Coag (PPP) [Relative time] 1.0 {INR} [facility] Interpretation and review of laboratory results Normal [facility] PT Coag (PPP) [Time] 12.9 s [facility] During the induction phase of oral anticoagulation, the INR may not reflect the anticoagulation status of the patient. Therapeutic ranges for INR's are: Most clinical situations: INR 2.0-3.0 Mechanical Prosthetic Valve: INR 2.5-3.5 Critical: INR >5.0 [facility] XR ANKLE RIGHT 3+ VIEWS (STA NDARD)on 05-01-2020 Images are obtained with the right ankle with in a splint which obscures bony detail. Postsurgical changes are seen, as detailed above with normal alignment. Workstation ID: [id number] [facility] EXAMINATION: XR ANKL E RIGHT 3+ VIEWS (STANDARD) 05/01/2020 8:16 pm HISTORY: ORDERING SYSTEM PROVIDED HISTORY: post op, TECHNOLOGIST PROVIDED HISTORY: Illness/Other Reason for exam: POST OP Cancer History: u Surgery, RadiationHistory: Y Encounter Type: Initial Additional signs and symptoms: . ORDERING SYSTEM PROVIDED DIAGNOSIS CODES: COMPARISON: Right tibia/fibula x-rays of 05/01/2020 at 11:25 a.m. FINDINGS: Images are obtained with the right ankle in a splint which obscures bony detail. There is interval resection of the distal right fibula. Internal fixation of the right ankle is seen with intramedullary tommy seen in the right tibia traversing the tibiotalar joint. Additional smaller surgical screw is seen traversing the tibiotalar joint. Internal fixation of the calcaneus is also seen with metallic tommy. Ankle and calcaneal fractures demonstrate normal alignment. Large plantar calcaneal spur is seen. Advanced degenerative changes are seen about the mid foot. Mild diffuse bony demineralization is seen. [facility] Interface, Rad In Fu ji Speechq - 05/01/2020 9:07 PM EDT EXAMINATION: XR ANKLE RIGHT 3+ VIEWS (STANDARD) 05/01/2020 8:16 pm HISTORY: ORDERING SYSTEM PROVIDED HISTORY: post op, TECHNOLOGIST PROVIDED HISTORY: Illness/Other Reason for exam: POST OP Cancer History: u Surgery, RadiationHistory: Y Encounter Type: Initial Additional signs and symptoms: . ORDERING SYSTEM PROVIDED DIAGNOSIS CODES: COMPARISON: Right tibia/fibula x-rays of 05/01/2020 at 11:25 a.m. FINDINGS: Images are obtained with the right ankle in a splint which obscures bony detail. There is interval resection of the distal right fibula. Internal fixation of the right ankle is seen with intramedullary tommy seen in the right tibia traversing the tibiotalar joint. Additional smaller surgical screw is seen traversing the tibiotalar joint. Internal fixation of the calcaneus is also seen with metallic tommy. Ankle and calcaneal fractures demonstrate normal alignment. Large plantar calcaneal spur is seen. Advanced degenerative changes are seen about the mid foot. Mild diffuse bony demineralization is seen. IMPRESSION: Images are obtained with the right ankle with in a splint which obscures bony detail. Postsurgical changes are seen, as detailed above with normal alignment. Workstation ID: [id number] [facility] XR FOOT RIGHT 3+ VIEWS (CONY WADDELL)on 05-01-2020 1. Prior external fixator replacement. Extensive deformity in the midfoot related to prior surgical resection or Charcot changes. Continued subluxation between talus and navicular. 2. 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 PRL/trw Workstation ID: [id number] [facility] EXAMINATION: XR FOOT RIGHT 3+ VIEWS (STANDARD) 05/01/2020 11:25 AM HISTORY: ORDERING SYSTEM PROVIDED HISTORY: Preop, TECHNOLOGIST PROVIDED HISTORY: Illness/Other Reason for exam: pre op surgery Cancer History: u Surgery, RadiationHistory: Y Encounter Type: Initial Additional signs and symptoms: none COMPARISON: 02/16/2020. FINDINGS: Since the prior exam, patient has had removal of the external fixator. There is a nonunion fracture of the 5th metatarsal. The cuneiforms have either resorbed or have been removed. There continues to be subluxation between the residual navicular and talus. No evidence for osteomyelitis. There has been prior osteotomy of the distal aspect of the 2nd proximal phalanx. No acute fracture. [facility] Interface, Rad In Fu ji Speechq - 05/01/2020 12:22 PM EDT EXAMINATION: XR FOOT RIGHT 3+ VIEWS (STANDARD) 05/01/2020 11:25 AM HISTORY: ORDERING SYSTEM PROVIDED HISTORY: Preop, TECHNOLOGIST PROVIDED HISTORY: Illness/Other Reason for exam: pre op surgery Cancer History: u Surgery, RadiationHistory: Y Encounter Type: Initial Additional signs and symptoms: none COMPARISON: 02/16/2020. FINDINGS: Since the prior exam, patient has had removal of the external fixator. There is a nonunion fracture of the 5th metatarsal. The cuneiforms have either resorbed or have been removed. There continues to be subluxation between the residual navicular and talus. No evidence for osteomyelitis. There has been prior osteotomy of the distal aspect of the 2nd proximal phalanx. No acute fracture. IMPRESSION: 1. Prior external fixator replacement. Extensive deformity in the midfoot related to prior surgical resection or Charcot changes. Continued subluxation between talus and navicular. 2. 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 PRL/trw Workstation ID: [id number] [facility] XR Tibia Fibula Right 2 View son 05-01-2020 EXAMINATION: XR TIBI A FIBULA RIGHT 2 VIEWS 05/01/2020 8:13 pm HISTORY: ORDERING SYSTEM PROVIDED HISTORY: post op, TECHNOLOGIST PROVIDED HISTORY: Injury/Trauma Reason for exam: POST OP Cancer History: u Surgery, RadiationHistory: Y Encounter Type: Initial Mechanism of injury: . ORDERING SYSTEM PROVIDED DIAGNOSIS CODES: FINDINGS: There is a tibial intramedullary tommy next ending into the talus and calcaneus. Fibula is intact. Lateral malleolus has been resected. [facility] 1. Fusion of the tibia, talus, and calcaneus. Alignment is anatomic. There has been resection of the lateral malleolus. Workstation ID: [id number] [facility] Interface, Rad In [facility] - 05/01/2020 9:05 PM EDT EXAMINATION: XR TIBIA FIBULA RIGHT 2 VIEWS 05/01/2020 8:13 pm HISTORY: ORDERING SYSTEM PROVIDED HISTORY: post op, TECHNOLOGIST PROVIDED HISTORY: Injury/Trauma Reason for exam: POST OP Cancer History: u Surgery, RadiationHistory: Y Encounter Type: Initial Mechanism of injury: . ORDERING SYSTEM PROVIDED DIAGNOSIS CODES: FINDINGS: There is a tibial intramedullary tommy next ending into the talus and calcaneus. Fibula is intact. Lateral malleolus has been resected. IMPRESSION: 1. Fusion of the tibia, talus, and calcaneus. Alignment is anatomic. There has been resection of the lateral malleolus. Workstation ID: [id number] [facility] EXAMINATION: XR TIBI A FIBULA RIGHT 2 VIEWS 05/01/2020 11:25 am HISTORY: ORDERING SYSTEM PROVIDED HISTORY: Preop, TECHNOLOGIST PROVIDED HISTORY: Illness/Other Reason for exam: pre op surgery Cancer History: u Surgery, RadiationHistory: Y Encounter Type: Initial Additional signs and symptoms: none ORDERING SYSTEM PROVIDED DIAGNOSIS CODES: COMPARISON: 02/16/2020. FINDINGS: Three views. Status post removal of the external fixator. No evidence for a stress reaction or acute fracture or bone destruction involving the tibia or fibula. The ankle mortise is normally aligned. [employer] Interface, Rad In [facility] - 05/01/2020 12:22 PM EDT EXAMINATION: XR TIBIA FIBULA RIGHT 2 VIEWS 05/01/2020 11:25 am HISTORY: ORDERING SYSTEM PROVIDED HISTORY: Preop, TECHNOLOGIST PROVIDED HISTORY: Illness/Other Reason for exam: pre op surgery Cancer History: u Surgery, RadiationHistory: Y Encounter Type: Initial Additional signs and symptoms: none ORDERING SYSTEM PROVIDED DIAGNOSIS CODES: COMPARISON: 02/16/2020. FINDINGS: Three views. Status post removal of the external fixator. No evidence for a stress reaction or acute fracture or bone destruction involving the tibia or fibula. The ankle mortise is normally aligned. IMPRESSION: Status post removal of the external fixator with no acute osseous abnormality in the right tibia or fibula or right ankle. PRL/trn Workstation ID: [id number] [facility] Status post removal of the external fixator with no acute osseous abnormality in the right tibia or fibula or right ankle. PRL/trn Workstation ID: [id number] [facility] XR CHEST AP/PA AND LATon No acute cardiopulmonary process. ST/mkv Workstation ID: [id number] [facility] EXAMINATION: XR CHEST AP/PA AND LAT HISTORY: ORDERING SYSTEM PROVIDED HISTORY: Charcot's joint of right foot, TECHNOLOGIST PROVIDED HISTORY: Illness/Other Reason for exam: pre-op for foot surgery next week, hx of htn, pt denies any chest symptoms Cancer History: u Surgery, RadiationHistory: Y Encounter Type: Initial Additional signs and symptoms: . ORDERING SYSTEM PROVIDED DIAGNOSIS CODES: M14.671 Charcot's joint of right foot COMPARISON: 11/23/2019. FINDINGS: Two-view chest x-ray. Low lung volumes. No pneumothorax, pleural effusion or focal airspace consolidation. Heart is normal in size. Postoperative changes of median sternotomy. Bony thorax is unremarkable. [facility], Rad In Fu ji Speechq - 04/26/2020 6:19 PM EDT EXAMINATION: XR CHEST AP/PA AND LAT HISTORY: ORDERING SYSTEM PROVIDED HISTORY: Charcot's joint of right foot, TECHNOLOGIST PROVIDED HISTORY: Illness/Other Reason for exam: pre-op for foot surgery next week, hx of htn, pt denies any chest symptoms Cancer History: u Surgery, RadiationHistory: Y Encounter Type: Initial Additional signs and symptoms: . ORDERING SYSTEM PROVIDED DIAGNOSIS CODES: M14.671 Charcot's joint of right foot COMPARISON: 11/23/2019. FINDINGS: Two-view chest x-ray. Low lung volumes. No pneumothorax, pleural effusion or focal airspace consolidation. Heart is normal in size. Postoperative changes of median sternotomy. Bony thorax is unremarkable. IMPRESSION: No acute cardiopulmonary process. ST/mkv Workstation ID: [id number] [facility] DEBRIDEMENTon 02-23-2020 Darrin Webber PM 02/23/2020 10:36 AM Wound Care Debridement Timeout: Verbal Consent obtained?: Yes Written Consent obtained?: Yes Consent given by: Patient Immediately prior to procedure a time out was called to verify the correct patient, procedure, equipment, support service tech and site/side marked as required Debridement Procedure: Debridement Performed for Assessment: Right plantar foot Performed by: Physician Debridement Type: Surgical Pain Control: N/A Level: Skin/Subcutaneous Tissue Post Debridement Measurements: Length (cm): 1.5 Width (cm): 0.3 Depth (cm): 0.3 Area (sq cm): 0.45 Volume (cm3): 0.14 Percent Debrided: 100 Total Area Debrided (sq cm): 0.45 Tissue and other material debrided: Subcutaneous Devitalized tissue debrided: Biofilm and Slough Instrument: Curette Bleeding: Minimal Hemostasis Achieved: Pressure Procedural Pain: Insensate Post Procedural Pain: Insensate Response to Treatment: Procedure was tolerated well [facility] Other 02-16-2020 Study is limited due to overlying external fixator. No significant change in alignment. Workstation ID: [id number] [facility] EXAMINATION: XR FOOT RIGHT 3+ VIEWS (STANDARD); XR TIBIA FIBULA RIGHT 2 VIEWS HISTORY: M, 59 y/o , Charcot's joint of foot, unspecified laterality COMPARISON: 01/12/2020 TECHNIQUE: Three views of the right foot, two views of the right tibia and fibula are performed. FINDINGS: There is extensive hardware from an external fixator present. This obscures fine bony detail.A single percutaneous pin is seen entering the plantar aspect of the foot through the calcaneus, talus, and entering the distal tibia. A 2nd slightly larger metallic tommy is seen entering the posterior calcaneus extending into the talus. Degenerative changes are present in the midfoot. There is soft tissue edema. [facility] Manjit, Mat In Sancho ji Speechq - 02/16/2020 4:30 PM EDT EXAMINATION: XR FOOT RIGHT 3+ VIEWS (STANDARD); XR TIBIA FIBULA RIGHT 2 VIEWS HISTORY: M, 59 y/o , Charcot's joint of foot, unspecified laterality COMPARISON: 01/12/2020 TECHNIQUE: Three views of the right foot, two views of the right tibia and fibula are performed. FINDINGS: There is extensive hardware from an external fixator present. This obscures fine bony detail.A single percutaneous pin is seen entering the plantar aspect of the foot through the calcaneus, talus, and entering the distal tibia. A 2nd slightly larger metallic tommy is seen entering the posterior calcaneus extending into the talus. Degenerative changes are present in the midfoot. There is soft tissue edema. IMPRESSION: Study is limited due to overlying external fixator. No significant change in alignment. Workstation ID: [id number] [facility] CBC WITH AUTO DIFFERENTIALon 02-09-2020 Basophils (Bld) [#/Vol] 0.03 10*3/uL [facility] Basophils/100 WBC (Bld) 0.5 % [facility] Eosinophils (Bld) [#/Vol] 0.17 10*3/uL [facility] Eosinophils/100 WBC (Bld) 2.8 % [facility] Erythrocyte distribution width (RBC) [Entitic vol] 14.5 % 11.6 - 14.8 % [facility] Hematocrit (Bld) [Volume fraction] 38.2 % Low 41 - 53 % [facility] Hemoglobin (Bld) [Mass/Vol] 12.1 g/dL Low 13.5 - 17.5 g/dL [facility] Immature granulocytes (Bld) [#/Vol] 0.03 10*3/uL [facility] Immature granulocytes/100 WBC (Bld) 0.50 % [facility] Comment on above: The IG parameter is the percentage of metamyelocytes, myelocytes, and promyelocytes. Interpretation and review of laboratory results Abnormal [facility] Lymphocytes (Bld) [#/Vol] 0.96 10*3/uL [facility] Lymphocytes/100 WBC (Bld) 16.0 % [facility] MCH (RBC) [Entitic mass] 26.7 pg 26 - 34 pg [facility] MCHC (RBC) [Mass/Vol] 31.7 g/dL 31 - 37 g/dL [facility] MCV (RBC) [Entitic vol] 84.3 fL 80 - 100 fL [facility] Monocytes (Bld) [#/Vol] 0.57 10*3/uL [facility] Monocytes/100 WBC (Bld) 9.5 % [facility] Neutrophils (Bld) [#/Vol] 4.25 10*3/uL [facility] Neutrophils/100 WBC (Bld) 70.7 % [facility] Nucleated RBC (Bld) [#/Vol] 0.00 10*3/uL [facility] Nucleated RBC/100 WBC (Bld) [Ratio] 0.0 % [facility] Platelet mean volume (Bld) [Entitic vol] 10.6 fL 9 - 15.5 fL [facility] Platelets (Bld) [#/Vol] 196 10*3/uL [facility] RBC (Bld) [#/Vol] 4.53 10*6/uL [facility] WBC (Bld) [#/Vol] 6.01 10*3/uL [facility] CRP, Inflammationon 02-09-20 20 CRP [Mass/Vol] 5.7 mg/L <=10.0 [facility] Interpretation and review of laboratory results Normal [facility] Comprehensive Metabolic Pane mervin 02-09-2020 Albumin [Mass/Vol] 3.5 g/dL 3.2 - 5.2 g/dL [facility] ALP [Catalytic activity/Vol] 72 U/L 40 - 150 U/L [facility] ALT [Catalytic activity/Vol] 19 U/L 14 - 65 U/L [facility] Anion gap [Moles/Vol] 9 mmol/L Low 10 - 2 0 mmol/L [facility] AST [Catalytic activity/Vol] 14 U/L 0 - 45 U/L [facility] Bilirubin [Mass/Vol] 0.3 mg/dL 0 - 1.3 mg/dL [facility] Calcium [Mass/Vol] 9.2 mg/dL 8.4 - 10. 2 mg/dL [facility] Chloride [Moles/Vol] 109 mmol/L High 98 - 10 8 mmol/L [facility] [facility] Creatinine [Mass/Vol] 0.94 mg/dL 0.50 - 1.30 [facility] GFR/1.73 sq M predicted among non-blacks MDRD (S/P/Bld) [Vol rate/Area] The eGFR should be used for monitoring renal function only and not for medication dosing. [facility] GFR/1.73 sq M.predicted CKD-EPI (S/P/Bld) [Vol rate/Area] 90 >=60 mL/min/1.73 m2 [facility] Glucose [Mass/Vol] 205 mg/dL High 65 - 99 mg/dL [facility] HCO3 [Moles/Vol] 28 mmol/L 21 - 32 mmol/L [facility] Interpretation and review of laboratory results Abnormal [facility] Potassium [Moles/Vol] 4.3 mmol/L 3.5 - 5.1 mmol/L [facility] Protein [Mass/Vol] 6.9 g/dL 6 - 8 g/dL [facility] Sodium [Moles/Vol] 142 mmol/L 135 - 145 mmol/L [facility] Urea nitrogen [Mass/Vol] 22 mg/dL 8 - 25 mg/dL [facility] Urea nitrogen/Creatinine [Mass ratio] 23.4 mg/mg High [facility] DEBRIDEMENTon 02-09-2020 Darrin Webber PM 02/09/2020 2:44 PM Wound Care Debridement Timeout: Verbal Consent obtained?: Yes Written Consent obtained?: Yes Consent given by: Patient Immediately prior to procedure a time out was called to verify the correct patient, procedure, equipment, support service tech and site/side marked as required Debridement Procedure: Debridement Performed for Assessment: Right planar wound Performed by: Physician Debridement Type: Surgical Pain Control: N/A Level: Skin/Subcutaneous Tissue Post Debridement Measurements: Length (cm): 2 Width (cm): 0.3 Depth (cm): 0.3 Area (sq cm): 0.6 Volume (cm3): 0.18 Percent Debrided: 100 Total Area Debrided (sq cm): 0.6 Tissue and other material debrided: Subcutaneous Devitalized tissue debrided: Biofilm and Slough Instrument: Curette Bleeding: Minimal Hemostasis Achieved: Pressure Procedural Pain: Insensate Post Procedural Pain: Insensate Response to Treatment: Procedure was tolerated well [facility] Sedimentation Rateon 020 ESR (Bld) [Velocity] 24 mm/h High [facility] Interpretation and review of laboratory results Abnormal [facility] SCAN OTHER ORDERSon 02-08-20 20 Ordered by an unspecified provider. [facility] DEBRIDEMENTon 02-02-2020 Darrin Webber PM 02/02/2020 10:04 AM Wound Care Debridement Timeout: Verbal Consent obtained?: Yes Written Consent obtained?: Yes Consent given by: Patient Immediately prior to procedure a time out was called to verify the correct patient, procedure, equipment, support service tech and site/side marked as required Debridement Procedure: Debridement Performed for Assessment: Right plantar foot Performed by: Physician Debridement Type: Surgical Pain Control: N/A Level: Skin/Subcutaneous Tissue Post Debridement Measurements: Length (cm): 2.5 Width (cm): 0.5 Depth (cm): 0.4 Area (sq cm): 1.25 Volume (cm3): 0.5 Percent Debrided: 100 Total Area Debrided (sq cm): 1.25 Tissue and other material debrided: Subcutaneous Devitalized tissue debrided: Biofilm, Slough and Fibrin Instrument: Curette Bleeding: Minimal Hemostasis Achieved: Pressure Procedural Pain: Insensate Post Procedural Pain: Insensate Response to Treatment: Procedure was tolerated well [facility] Darrin Webber PM 02/02/2020 10:04 AM Wound Care Debridement Timeout: Verbal Consent obtained?: Yes Written Consent obtained?: Yes Consent given by: Patient Immediately prior to procedure a time out was called to verify the correct patient, procedure, equipment, support service tech and site/side marked as required Debridement Procedure: Debridement Performed for Assessment: Right great toe Performed by: Physician Debridement Type: Surgical Pain Control: N/A Level: Skin/Subcutaneous Tissue Post Debridement Measurements: Length (cm): 0.3 Width (cm): 0.3 Depth (cm): 0.2 Area (sq cm): 0.09 Volume (cm3): 0.02 Percent Debrided: 100 Total Area Debrided (sq cm): 0.09 Tissue and other material debrided: Subcutaneous Devitalized tissue debrided: Biofilm and Fibrin Instrument: Curette Bleeding: Minimal Hemostasis Achieved: Pressure Procedural Pain: Insensate Post Procedural Pain: Insensate Response to Treatment: Procedure was tolerated well [facility] SCAN OTHER ORDERSon 02-02-20 Ordered by an unspecified provider. [facility] DEBRIDEMENTon 01-26-2020 Darrin Webber PM 01/26/2020 10:35 AM Wound Care Debridement Timeout: Verbal Consent obtained?: Yes Written Consent obtained?: Yes Consent given by: Patient Immediately prior to procedure a time out was called to verify the correct patient, procedure, equipment, support service tech and site/side marked as required Debridement Procedure: Debridement Performed for Assessment: Right foot plantar wound Performed by: Physician Debridement Type: Selective Post Debridement Measurements: Length (cm): 2.5 Width (cm): 0.5 Depth (cm): 0.4 Area (sq cm): 1.25 Volume (cm3): 0.5 Percent Debrided: 100 Total Area Debrided (sq cm): 1.25 Tissue and other material debrided: Subcutaneous Devitalized tissue debrided: Biofilm and Slough Instrument: Curette Bleeding: Minimal Hemostasis Achieved: Pressure Procedural Pain: Insensate Post Procedural Pain: Insensate Response to Treatment: Procedure was tolerated well [facility] 01-19-2020 Darrin Webber 01/19/2020 10:06 AM Wound Care Debridement Timeout: Verbal Consent obtained?: Yes Written Consent obtained?: Yes Consent given by: Patient Immediately prior to procedure a time out was called to verify the correct patient, procedure, equipment, support service tech and site/side marked as required Debridement Procedure: Debridement Performed for Assessment: Right foot Performed by: Physician Debridement Type: Surgical Pain Control: N/A Level: Skin/Subcutaneous Tissue Post Debridement Measurements: Length (cm): 3 Width (cm): 0.8 Depth (cm): 0.5 Area (sq cm): 2.4 Volume (cm3): 1.2 Percent Debrided: 100 Total Area Debrided (sq cm): 2.4 Tissue and other material debrided: Subcutaneous Devitalized tissue debrided: Biofilm and Slough Instrument: Curette Bleeding: Minimal Hemostasis Achieved: Pressure Procedural Pain: Insensate Post Procedural Pain: Insensate Response to Treatment: Procedure was tolerated well [facility] Darrin Webber 01/19/2020 10:06 AM Wound Care Debridement Timeout: Verbal Consent obtained?: Yes Written Consent obtained?: Yes Consent given by: Patient Immediately prior to procedure a time out was called to verify the correct patient, procedure, equipment, support service tech and site/side marked as required Debridement Procedure: Debridement Performed for Assessment: Right great toe Performed by: Physician Debridement Type: Surgical Pain Control: N/A Level: Skin/Subcutaneous Tissue Post Debridement Measurements: Length (cm): 0.3 Width (cm): 0.3 Depth (cm): 0.2 Area (sq cm): 0.09 Volume (cm3): 0.02 Percent Debrided: 100 Total Area Debrided (sq cm): 0.09 Tissue and other material debrided: Subcutaneous Devitalized tissue debrided: Biofilm and Slough Instrument: Curette Bleeding: Minimal Hemostasis Achieved: Pressure Procedural Pain: Insensate Post Procedural Pain: Insensate Response to Treatment: Procedure was tolerated well [facility] SCAN OTHER ORDERSon 01-18-20 Ordered by an unspecified provider. [facility] DEBRIDEMENTon 01-12-2020 Darrin Webber 01/12/2020 9:14 AM Wound Care Debridement Timeout: Verbal Consent obtained?: Yes Written Consent obtained?: Yes Consent given by: Patient Immediately prior to procedure a time out was called to verify the correct patient, procedure, equipment, support service tech and site/side marked as required Debridement Procedure: Debridement Performed for Assessment: Right plantar foot Performed by: Physician Debridement Type: Surgical Pain Control: N/A Level: Skin/Subcutaneous Tissue Post Debridement Measurements: Length (cm): 3.5 Width (cm): 1 Depth (cm): 0.5 Area (sq cm): 3.5 Volume (cm3): 1.75 Percent Debrided: 100 Total Area Debrided (sq cm): 3.5 Tissue and other material debrided: Subcutaneous Devitalized tissue debrided: Biofilm and Slough Instrument: Curette Bleeding: Minimal Hemostasis Achieved: Pressure Procedural Pain: Insensate Post Procedural Pain: Insensate Response to Treatment: Procedure was tolerated well [facility] Darrin Webber 01/12/2020 9:14 AM Wound Care Debridement Timeout: Verbal Consent obtained?: Yes Written Consent obtained?: Yes Consent given by: Patient Immediately prior to procedure a time out was called to verify the correct patient, procedure, equipment, support service tech and site/side marked as required Debridement Procedure: Debridement Performed for Assessment: Right hallux Performed by: Physician Debridement Type: Surgical Pain Control: N/A Level: Skin/Subcutaneous Tissue Post Debridement Measurements: Length (cm): 0.5 Width (cm): 0.5 Depth (cm): 0.2 Area (sq cm): 0.25 Volume (cm3): 0.05 Percent Debrided: 100 Total Area Debrided (sq cm): 0.25 Tissue and other material debrided: Subcutaneous Devitalized tissue debrided: Biofilm and Slough Instrument: Curette Bleeding: Minimal Hemostasis Achieved: Pressure Procedural Pain: Insensate Post Procedural Pain: Insensate Response to Treatment: Procedure was tolerated well [facility] Otheron 01-12-2020 Erythrocyte distribution width (RBC) [Ratio] FINDINGS/ 1. External fixation hardware remains in position, obscuring some bony detail, with fixation pins in the posterior facet subtalar joint and the talonavicular joint. 2. Severe neuropathic arthropathy remains throughout the midfoot and tarsometatarsal joints, with associated ossific fragmented debris adjacent to the tarsometatarsal joints. 3. Intra-articular fracture-subluxation remains in the base of the 2nd metatarsal, with persistent lateral and dorsal subluxation of the 2nd through 5th metatarsal bases. 4. Persistent dorsal and medial subluxation of the medial cuneiform bone and 1st metatarsal remains. Workstation ID: [id number] [facility] EXAMINATION: XR FOOT RIGHT 3+ VIEWS (STANDARD) 01/12/2020 8:22 am HISTORY: ORDERING SYSTEM PROVIDED HISTORY: 8 weeks s/p wedge excision, TECHNOLOGIST PROVIDED HISTORY: Illness/Other Reason for exam: POST-OP EVAL. 8 weeks s/p wedge excision Cancer History: u Surgery, RadiationHistory: Y Encounter Type: Initial Additional signs and symptoms: N ORDERING SYSTEM PROVIDED DIAGNOSIS CODES: L97.512 Foot ulcer with fat layer exposed, right (HCC) T81.31XD Dehiscence of operative wound, subsequent encounter COMPARISON: Radiographs of 12/02/2019 and 11/20/2019 [facility] Interface, Rad In ji Speechq - 01/12/2020 9:02 AM EDT EXAMINATION: XR FOOT RIGHT 3+ VIEWS (STANDARD) 01/12/2020 8:22 am HISTORY: ORDERING SYSTEM PROVIDED HISTORY: 8 weeks s/p wedge excision, TECHNOLOGIST PROVIDED HISTORY: Illness/Other Reason for exam: POST-OP EVAL. 8 weeks s/p wedge excision Cancer History: u Surgery, RadiationHistory: Y Encounter Type: Initial Additional signs and symptoms: N ORDERING SYSTEM PROVIDED DIAGNOSIS CODES: L97.512 Foot ulcer with fat layer exposed, right (HCC) T81.31XD Dehiscence of operative wound, subsequent encounter COMPARISON: Radiographs of 12/02/2019 and 11/20/2019 IMPRESSION: FINDINGS/ 1. External fixation hardware remains in position, obscuring some bony detail, with fixation pins in the posterior facet subtalar joint and the talonavicular joint. 2. Severe neuropathic arthropathy remains throughout the midfoot and tarsometatarsal joints, with associated ossific fragmented debris adjacent to the tarsometatarsal joints. 3. Intra-articular fracture-subluxation remains in the base of the 2nd metatarsal, with persistent lateral and dorsal subluxation of the 2nd through 5th metatarsal bases. 4. Persistent dorsal and medial subluxation of the medial cuneiform bone and 1st metatarsal remains. Workstation ID: [id number] [facility] XR ANKLE RIGHT 3+ VIEWS (STA NDARD)on 01-12-2020 Interval surgical changes, with placement of lower leg, and ankle fixation devices, with multiple pins and screws directed into the shaft portions of the tibia and fibula, as well as through the hindfoot structures, talus, calcaneus, crossing the subtalar and ankle joint structures. All hardware elements appear to be intact. Please see surgeon's note of procedure for further information. NTP/trw Workstation ID: [id number] [facility] EXAMINATION: XR ANKL E RIGHT 3+ VIEWS (STANDARD) 01/12/2020 8:21 AM HISTORY: ORDERING SYSTEM PROVIDED HISTORY: eval postop; AP and MO please, TECHNOLOGIST PROVIDED HISTORY: Illness/Other Reason for exam: POST-OP EVALUATION Cancer History: u Surgery, RadiationHistory: Y Encounter Type: Initial Additional signs and symptoms: N ORDERING SYSTEM PROVIDED DIAGNOSIS CODES: M14.671 Charcot's joint of right foot COMPARISON: 12/07/2019. FINDINGS: Three views of the right ankle are acquired. The distal tibia and fibula, as well as the talus and calcaneus remain intact. Subtalar joint alignment is satisfactory. There is degeneration of the anterior portion of the subtalar joint. Since the previous exam, external fixation devices have been positioned, about the lower leg, and foot. I do see that there is a screw extending through the [id number] shaft of the tibia, a stabilization wire extending through the fibula and tibia at the distal diaphysis. In addition, there are multiple screws and pins directed into the talus, calcaneus, as well as across the ankle joint. [facility] Interface, Rad In Fu ji Speechq - 01/12/2020 1:00 PM EDT EXAMINATION: XR ANKLE RIGHT 3+ VIEWS (STANDARD) 01/12/2020 8:21 AM HISTORY: ORDERING SYSTEM PROVIDED HISTORY: eval postop; AP and MO please, TECHNOLOGIST PROVIDED HISTORY: Illness/Other Reason for exam: POST-OP EVALUATION Cancer History: u Surgery, RadiationHistory: Y Encounter Type: Initial Additional signs and symptoms: N ORDERING SYSTEM PROVIDED DIAGNOSIS CODES: M14.671 Charcot's joint of right foot COMPARISON: 12/07/2019. FINDINGS: Three views of the right ankle are acquired. The distal tibia and fibula, as well as the talus and calcaneus remain intact. Subtalar joint alignment is satisfactory. There is degeneration of the anterior portion of the subtalar joint. Since the previous exam, external fixation devices have been positioned, about the lower leg, and foot. I do see that there is a screw extending through the [id number] shaft of the tibia, a stabilization wire extending through the fibula and tibia at the distal diaphysis. In addition, there are multiple screws and pins directed into the talus, calcaneus, as well as across the ankle joint. IMPRESSION: Interval surgical changes, with placement of lower leg, and ankle fixation devices, with multiple pins and screws directed into the shaft portions of the tibia and fibula, as well as through the hindfoot structures, talus, calcaneus, crossing the subtalar and ankle joint structures. All hardware elements appear to be intact. Please see surgeon's note of procedure for further information. NTP/trw Workstation ID: [id number] [facility] SCAN OTHER ORDERSon 01-09-20 Ordered by an unspecified provider. [facility] DEBRIDEMENTon 01-05-2020 Darrin Webber PM 01/05/2020 2:24 PM Wound Care Debridement Timeout: Verbal Consent obtained?: Yes Written Consent obtained?: Yes Consent given by: Patient Immediately prior to procedure a time out was called to verify the correct patient, procedure, equipment, support service tech and site/side marked as required Debridement Procedure: Debridement Performed for Assessment: Right plantar foot Performed by: Physician Debridement Type: Surgical Pain Control: N/A Level: Skin/Subcutaneous Tissue Post Debridement Measurements: Length (cm): 4 Width (cm): 1.3 Depth (cm): 0.3 Area (sq cm): 5.2 Volume (cm3): 1.56 Percent Debrided: 100 Total Area Debrided (sq cm): 5.2 Tissue and other material debrided: Subcutaneous Devitalized tissue debrided: Biofilm, Slough and Callus Instrument: Curette Bleeding: Minimal Hemostasis Achieved: Pressure Procedural Pain: Insensate Post Procedural Pain: Insensate Response to Treatment: Procedure was tolerated well [facility] CBC WITH AUTO DIFFERENTIALon 12-28-2019 Basophils (Bld) [#/Vol] 0.04 10*3/uL [facility] Basophils/100 WBC (Bld) 0.9 % [facility] Eosinophils (Bld) [#/Vol] 0.25 10*3/uL [facility] Eosinophils/100 WBC (Bld) 5.4 % [facility] Erythrocyte distribution width (RBC) [Entitic vol] 13.5 % 11.6 - 14.8 % [facility] Hematocrit (Bld) [Volume fraction] 38.0 % Low 41 - 53 % [facility] Hemoglobin (Bld) [Mass/Vol] 11.6 g/dL Low 13.5 - 17.5 g/dL [facility] Immature granulocytes (Bld) [#/Vol] 0.02 10*3/uL [facility] Immature granulocytes/100 WBC (Bld) 0.40 % [facility] Comment on above: The IG parameter is the percentage of metamyelocytes, myelocytes, and promyelocytes. Interpretation and review of laboratory results Abnormal [facility] Lymphocytes (Bld) [#/Vol] 0.61 10*3/uL Low [facility] Lymphocytes/100 WBC (Bld) 13.1 % [facility] MCH (RBC) [Entitic mass] 26.2 pg 26 - 34 pg [facility] MCHC (RBC) [Mass/Vol] 30.5 g/dL Low 31 - 37 g/dL [facility] MCV (RBC) [Entitic vol] 86.0 fL 80 - 100 fL [facility] Monocytes (Bld) [#/Vol] 0.43 10*3/uL [facility] Monocytes/100 WBC (Bld) 9.2 % [facility] Neutrophils (Bld) [#/Vol] 3.31 10*3/uL [facility] Neutrophils/100 WBC (Bld) 71.0 % [facility] Nucleated RBC (Bld) [#/Vol] 0.00 10*3/uL [facility] Nucleated RBC/100 WBC (Bld) [Ratio] 0.0 % [facility] Platelet mean volume (Bld) [Entitic vol] 10.9 fL 9 - 15.5 fL [facility] Platelets (Bld) [#/Vol] 182 10*3/uL [facility] RBC (Bld) [#/Vol] 4.42 10*6/uL Low [facility] WBC (Bld) [#/Vol] 4.66 10*3/uL [facility] CRP, Inflammationon 12-28-19 20 CRP [Mass/Vol] 6.4 mg/L <=10.0 [facility] Interpretation and review of laboratory results Normal [facility] Comprehensive Metabolic Pane mervin 12-28-2019 Albumin [Mass/Vol] 3.1 g/dL Low 3.2 - 5.2 g/dL [facility] ALP [Catalytic activity/Vol] 93 U/L 40 - 150 U/L [facility] ALT [Catalytic activity/Vol] 19 U/L 14 - 65 U/L [facility] Anion gap [Moles/Vol] 6 mmol/L Low 10 - 2 0 mmol/L [facility] AST [Catalytic activity/Vol] 16 U/L 0 - 45 U/L [facility] Bilirubin [Mass/Vol] 0.4 mg/dL 0 - 1.3 mg/dL [facility] Calcium [Mass/Vol] 9.2 mg/dL 8.4 - 10. 2 mg/dL [facility] Chloride [Moles/Vol] 109 mmol/L High 98 - 10 8 mmol/L [facility] Creatinine [Mass/Vol] 0.71 mg/dL 0.50 - 1.30 [facility] GFR/1.73 sq M predicted among non-blacks MDRD (S/P/Bld) [Vol rate/Area] The eGFR should be used for monitoring renal function only and not for medication dosing. [facility] GFR/1.73 sq M.predicted CKD-EPI (S/P/Bld) [Vol rate/Area] 104 >=60 mL/min/1.73 m2 [facility] Glucose [Mass/Vol] 135 mg/dL High 65 - 99 mg/dL [facility] HCO3 [Moles/Vol] 31 mmol/L 21 - 32 mmol/L [facility] Interpretation and review of laboratory results Abnormal [facility] Potassium [Moles/Vol] 4.3 mmol/L 3.5 - 5.1 mmol/L [facility] Protein [Mass/Vol] 7.0 g/dL 6 - 8 g/dL [facility] al[facility] Sodium [Moles/Vol] 142 mmol/L 135 - 145 mmol/L [facility] Urea nitrogen [Mass/Vol] 18 mg/dL 8 - 25 mg/dL [facility] Urea nitrogen/Creatinine [Mass ratio] 25.4 mg/mg High [facility] Sedimentation Rateon 020 ESR (Bld) [Velocity] 33 mm/h High [facility] Interpretation and review of laboratory results Abnormal [facility] POC Glucoseon 12-19-2019 Glucose [Mass/Vol] 162 mg/dL High 65 - 99 mg/dL [facility] Interpretation and review of laboratory results Abnormal [facility] Glucose [Mass/Vol] 111 mg/dL High 65 - 99 mg/dL [facility] Interpretation and review of laboratory results Abnormal [facility] CBC WITH AUTO DIFFERENTIALon 12-18-2019 Basophils (Bld) [#/Vol] 0.02 10*3/uL [facility] Basophils/100 WBC (Bld) 0.3 % [facility] Eosinophils (Bld) [#/Vol] 0.21 10*3/uL [facility] Eosinophils/100 WBC (Bld) 3.3 % [facility] Erythrocyte distribution width (RBC) [Entitic vol] 13.4 % 11.6 - 14.8 % [facility] Hematocrit (Bld) [Volume fraction] 37.8 % Low 41 - 53 % [facility] Hemoglobin (Bld) [Mass/Vol] 11.7 g/dL Low 13.5 - 17.5 g/dL [facility] Immature granulocytes (Bld) [#/Vol] 0.02 10*3/uL [facility] Immature granulocytes/100 WBC (Bld) 0.30 % [facility] Comment on above: The IG parameter is the percentage of metamyelocytes, myelocytes, and promyelocytes. Interpretation and review of laboratory results Abnormal [facility] Lymphocytes (Bld) [#/Vol] 0.68 10*3/uL Low [facility] Lymphocytes/100 WBC (Bld) 10.7 % [facility] MCH (RBC) [Entitic mass] 26.4 pg 26 - 34 pg [facility] MCHC (RBC) [Mass/Vol] 31.0 g/dL 31 - 37 g/dL [facility] MCV (RBC) [Entitic vol] 85.1 fL 80 - 100 fL [facility] Monocytes (Bld) [#/Vol] 0.61 10*3/uL [facility] Monocytes/100 WBC (Bld) 9.6 % [facility] Neutrophils (Bld) [#/Vol] 4.84 10*3/uL [facility] Neutrophils/100 WBC (Bld) 75.8 % [facility] Nucleated RBC (Bld) [#/Vol] 0.00 10*3/uL [facility] Nucleated RBC/100 WBC (Bld) [Ratio] 0.0 % [facility] Platelet mean volume (Bld) [Entitic vol] 10.5 fL 9 - 15.5 fL [facility] Platelets (Bld) [#/Vol] 323 10*3/uL [facility] RBC (Bld) [#/Vol] 4.44 10*6/uL Low [facility] WBC (Bld) [#/Vol] 6.38 10*3/uL [facility] CRP, Inflammationon 12-18-19 20 CRP [Mass/Vol] 18.7 mg/L High <=10.0 [facility] Comprehensive Metabolic Pane mervin 12-18-2019 Albumin [Mass/Vol] 3.0 g/dL Low 3.2 - 5.2 g/dL [facility] ALP [Catalytic activity/Vol] 94 U/L 40 - 150 U/L [facility] ALT [Catalytic activity/Vol] 27 U/L 14 - 65 U/L [facility] Anion gap [Moles/Vol] 16 mmol/L 10 - 2 0 mmol/L [facility] AST [Catalytic activity/Vol] 20 U/L 0 - 45 U/L [facility] Bilirubin [Mass/Vol] 0.3 mg/dL 0 - 1.3 mg/dL [facility] Calcium [Mass/Vol] 9.6 mg/dL 8.4 - 10. 2 mg/dL [facility] Chloride [Moles/Vol] 106 mmol/L 98 - 10 8 mmol/L [facility] Creatinine [Mass/Vol] 1.04 mg/dL 0.50 - 1.30 [facility] GFR/1.73 sq M predicted among non-blacks MDRD (S/P/Bld) [Vol rate/Area] The eGFR should be used for monitoring renal function only and not for medication dosing. [facility] GFR/1.73 sq M.predicted CKD-EPI (S/P/Bld) [Vol rate/Area] 79 >=60 mL/min/1.73 m2 [facility] Glucose [Mass/Vol] 82 mg/dL 65 - 99 mg/dL [facility] HCO3 [Moles/Vol] 25 mmol/L 21 - 32 mmol/L [facility] Potassium [Moles/Vol] 4.5 mmol/L 3.5 - 5.1 mmol/L [facility] Protein [Mass/Vol] 7.2 g/dL 6 - 8 g/dL [facility] Sodium [Moles/Vol] 142 mmol/L 135 - 145 mmol/L [facility] Urea nitrogen [Mass/Vol] 23 mg/dL 8 - 25 mg/dL [facility] Urea nitrogen/Creatinine [Mass ratio] 22.1 mg/mg High [facility] Otheron 12-18-2019 Interpretation and review of laboratory results Abnormal [facility] POC Glucoseon 12-18-2019 Glucose [Mass/Vol] 133 mg/dL High 65 - 99 mg/dL [facility] Interpretation and review of laboratory results Abnormal [facility] Glucose [Mass/Vol] 114 mg/dL High 65 - 99 mg/dL [facility] Interpretation and review of laboratory results Abnormal [facility] Glucose [Mass/Vol] 92 mg/dL 65 - 99 mg/dL [facility] Interpretation and review of laboratory results Normal [facility] Glucose [Mass/Vol] 98 mg/dL 65 - 99 mg/dL [facility] Interpretation and review of laboratory results Normal [facility] Sedimentation Rateon 020 ESR (Bld) [Velocity] 72 mm/h [facility] Interpretation and review of laboratory results Abnormal [facility] POC Glucoseon 12-17-2019 Glucose [Mass/Vol] 130 mg/dL High 65 - 99 mg/dL [facility] Interpretation and review of laboratory results Abnormal [facility] Glucose [Mass/Vol] 115 mg/dL High 65 - 99 mg/dL [facility] Interpretation and review of laboratory results Abnormal [facility] Glucose [Mass/Vol] 193 mg/dL High 65 - 99 mg/dL [facility] Interpretation and review of laboratory results Abnormal [facility] Glucose [Mass/Vol] 124 mg/dL High 65 - 99 mg/dL [facility] Interpretation and review of laboratory results Abnormal [facility] POC Glucoseon 12-16-2019 Glucose [Mass/Vol] 154 mg/dL High 65 - 99 mg/dL [facility] Interpretation and review of laboratory results Abnormal [facility] Glucose [Mass/Vol] 153 mg/dL High 65 - 99 mg/dL [facility] Interpretation and review of laboratory results Abnormal [facility] Glucose [Mass/Vol] 205 mg/dL High 65 - 99 mg/dL [facility] Interpretation and review of laboratory results Abnormal [facility] Glucose [Mass/Vol] 110 mg/dL High 65 - 99 mg/dL [facility] Interpretation and review of laboratory results Abnormal [facility] POC Glucoseon 12-15-2019 Glucose [Mass/Vol] 108 mg/dL High 65 - 99 mg/dL [facility] Interpretation and review of laboratory results Abnormal [facility] Glucose [Mass/Vol] 138 mg/dL High 65 - 99 mg/dL [facility] Interpretation and review of laboratory results Abnormal [facility] Glucose [Mass/Vol] 168 mg/dL High 65 - 99 mg/dL [facility] Interpretation and review of laboratory results Abnormal [facility] Glucose [Mass/Vol] 124 mg/dL High 65 - 99 mg/dL [facility] Interpretation and review of laboratory results Abnormal [facility] POC Glucoseon 12-14-2019 Glucose [Mass/Vol] 214 mg/dL High 65 - 99 mg/dL [facility] Interpretation and review of laboratory results Abnormal [facility] Glucose [Mass/Vol] 91 mg/dL 65 - 99 mg/dL [facility] Interpretation and review of laboratory results Normal [facility] Glucose [Mass/Vol] 233 mg/dL High 65 - 99 mg/dL [facility] Interpretation and review of laboratory results Abnormal [facility] Glucose [Mass/Vol] 129 mg/dL High 65 - 99 mg/dL [facility] Interpretation and review of laboratory results Abnormal [facility] POC Glucoseon 12-13-2019 Glucose [Mass/Vol] 191 mg/dL High 65 - 99 mg/dL [facility] Interpretation and review of laboratory results Abnormal [facility] Glucose [Mass/Vol] 159 mg/dL High 65 - 99 mg/dL [facility] Interpretation and review of laboratory results Abnormal [facility] Glucose [Mass/Vol] 160 mg/dL High 65 - 99 mg/dL [facility] Interpretation and review of laboratory results Abnormal [facility] Glucose [Mass/Vol] 137 mg/dL High 65 - 99 mg/dL [facility] Interpretation and review of laboratory results Abnormal [facility] CBC WITH AUTO DIFFERENTIALon 12-12-2019 Basophils (Bld) [#/Vol] 0.02 10*3/uL [facility] Basophils/100 WBC (Bld) 0.5 % [facility] Eosinophils (Bld) [#/Vol] 0.10 10*3/uL [facility] Eosinophils/100 WBC (Bld) 2.4 % [facility] Erythrocyte distribution width (RBC) [Entitic vol] 13.3 % 11.6 - 14.8 % [facility] Hematocrit (Bld) [Volume fraction] 35.6 % Low 41 - 53 % [facility] Hemoglobin (Bld) [Mass/Vol] 10.8 g/dL Low 13.5 - 17.5 g/dL [facility] Immature granulocytes (Bld) [#/Vol] 0.01 10*3/uL [facility] Immature granulocytes/100 WBC (Bld) 0.20 % [facility] Comment on above: The IG parameter is the percentage of metamyelocytes, myelocytes, and promyelocytes. Interpretation and review of laboratory results Abnormal [facility] Lymphocytes (Bld) [#/Vol] 0.66 10*3/uL Low [facility] Lymphocytes/100 WBC (Bld) 16.0 % [facility] MCH (RBC) [Entitic mass] 26.2 pg 26 - 34 pg [facility] MCHC (RBC) [Mass/Vol] 30.3 g/dL Low 31 - 37 g/dL [facility] MCV (RBC) [Entitic vol] 86.2 fL 80 - 100 fL [facility] Monocytes (Bld) [#/Vol] 0.53 10*3/uL [facility] Monocytes/100 WBC (Bld) 12.9 % [facility] Neutrophils (Bld) [#/Vol] 2.80 10*3/uL [facility] Neutrophils/100 WBC (Bld) 68.0 % [facility] Nucleated RBC (Bld) [#/Vol] 0.00 10*3/uL [facility] Nucleated RBC/100 WBC (Bld) [Ratio] 0.0 % [facility] Platelet mean volume (Bld) [Entitic vol] 10.9 fL 9 - 15.5 fL [facility] Platelets (Bld) [#/Vol] 203 10*3/uL [facility] RBC (Bld) [#/Vol] 4.13 10*6/uL Low [facility] WBC (Bld) [#/Vol] 4.12 10*3/uL Low [facility] CRP, Inflammationon 12-12-19 CRP [Mass/Vol] 52.4 mg/L High <=10.0 [facility] Comprehensive Metabolic Pane mervin 12-12-2019 Albumin [Mass/Vol] 2.5 g/dL Low 3.2 - 5.2 g/dL [facility] ALP [Catalytic activity/Vol] 83 U/L 40 - 150 U/L [facility] ALT [Catalytic activity/Vol] 52 U/L 14 - 65 U/L [facility] Anion gap [Moles/Vol] 8 mmol/L Low 10 - 2 0 mmol/L [facility] AST [Catalytic activity/Vol] 35 U/L 0 - 45 U/L [facility] Bilirubin [Mass/Vol] 0.3 mg/dL 0 - 1.3 mg/dL [facility] Calcium [Mass/Vol] 9.7 mg/dL 8.4 - 10. 2 mg/dL [facility] Chloride [Moles/Vol] 106 mmol/L 98 - 10 8 mmol/L [facility] Creatinine [Mass/Vol] 0.89 mg/dL 0.50 - 1.30 [facility] GFR/1.73 sq M predicted among non-blacks MDRD (S/P/Bld) [Vol rate/Area] The eGFR should be used for monitoring renal function only and not for medication dosing. [facility] GFR/1.73 sq M.predicted CKD-EPI (S/P/Bld) [Vol rate/Area] 95 >=60 mL/min/1.73 m2 [facility] Glucose [Mass/Vol] 167 mg/dL High 65 - 99 mg/dL [facility] HCO3 [Moles/Vol] 30 mmol/L 21 - 32 mmol/L [facility] Potassium [Moles/Vol] 4.3 mmol/L 3.5 - 5.1 mmol/L [facility] Protein [Mass/Vol] 6.7 g/dL 6 - 8 g/dL [facility] Sodium [Moles/Vol] 140 mmol/L 135 - 145 mmol/L [facility] Urea nitrogen [Mass/Vol] 26 mg/dL High 8 - 25 mg/dL [facility] Urea nitrogen/Creatinine [Mass ratio] 29.2 mg/mg High [facility] Otheron 12-12-2019 Interpretation and review of laboratory results Abnormal [facility] POC Glucoseon 12-12-2019 Glucose [Mass/Vol] 102 mg/dL High 65 - 99 mg/dL [facility] Interpretation and review of laboratory results Abnormal [facility] Glucose [Mass/Vol] 134 mg/dL High 65 - 99 mg/dL [facility] Interpretation and review of laboratory results Abnormal [facility] Glucose [Mass/Vol] 178 mg/dL High 65 - 99 mg/dL [facility] Interpretation and review of laboratory results Abnormal [facility] Glucose [Mass/Vol] 231 mg/dL High 65 - 99 mg/[facility] Interpretation and review of laboratory results Abnormal [facility] Sedimentation Rateon 020 ESR (Bld) [Velocity] 91 mm/h [facility] Interpretation and review of laboratory results Abnormal [facility] WOUND AEROBIC CULTUREon 12-02 Bacteria identified Aer cx Nom (Wound) Normal [place] After 48 Hours [facility] Microscopic observation Gram stain Nom (Wound) No Organisms Seen [facility] Microscopic observation Gram stain Nom (Wound) Rare Epithelial Cells [facility] Microscopic observation Gram stain Nom (Wound) Rare WBC [facility] Wound Anaerobic Cultureon Bacteria identified Anaer cx Nom (Wound) No Anaerobic Growth at 2 Days [facility] POC Glucoseon 12-11-2019 Glucose [Mass/Vol] 195 mg/dL High 65 - 99 mg/dL [facility] Interpretation and review of laboratory results Abnormal [facility] Glucose [Mass/Vol] 153 mg/dL High 65 - 99 mg/dL [facility] Interpretation and review of laboratory results Abnormal [facility] Glucose [Mass/Vol] 162 mg/dL High 65 - 99 mg/dL [facility] Interpretation and review of laboratory results Abnormal [facility] Glucose [Mass/Vol] 168 mg/dL High 65 - 99 mg/dL [facility] Interpretation and review of laboratory results Abnormal [facility] POC Glucoseon 12-10-2019 Glucose [Mass/Vol] 164 mg/dL High 65 - 99 mg/dL [facility] Interpretation and review of laboratory results Abnormal [facility] Glucose [Mass/Vol] 152 mg/dL High 65 - 99 mg/dL [facility] Interpretation and review of laboratory results Abnormal [facility] Glucose [Mass/Vol] 149 mg/dL High 65 - 99 mg/dL [facility] Interpretation and review of laboratory results Abnormal [facility] Glucose [Mass/Vol] 125 mg/dL High 65 - 99 mg/dL [facility] Interpretation and review of laboratory results Abnormal [facility] Urine Aerobic Cultureon Bacteria identified Aer cx Nom (Unsp spec) No Growth (<1,000 CFU/mL) [facility] POC Glucoseon 12-09-2019 Glucose [Mass/Vol] 153 mg/dL High 65 - 99 mg/dL [facility] Interpretation and review of laboratory results Abnormal [facility] Glucose [Mass/Vol] 133 mg/dL High 65 - 99 mg/dL [facility] Interpretation and review of laboratory results Abnormal [facility] Glucose [Mass/Vol] 190 mg/dL High 65 - 99 mg/dL [facility] Interpretation and review of laboratory results Abnormal [facility] Glucose [Mass/Vol] 203 mg/dL High 65 - 99 mg/dL [facility] Interpretation and review of laboratory results Abnormal [facility] Urine Aerobic Culture on arr ival to Nursing [facility]hab uniton 12-09-2019 Bacteria identified Aer cx Nom (Unsp spec) No Growth (<1,000 CFU/mL) [facility] POC Glucoseon 12-08-2019 Glucose [Mass/Vol] 252 mg/dL High 65 - 99 mg/dL [facility] Interpretation and review of laboratory results Abnormal [facility] Glucose [Mass/Vol] 151 mg/dL High 65 - 99 mg/dL [facility] Interpretation and review of laboratory results Abnormal [facility] Glucose [Mass/Vol] 176 mg/dL High 65 - 99 mg/dL [facility] Interpretation and review of laboratory results Abnormal [facility] Glucose [Mass/Vol] 216 mg/dL High 65 - 99 mg/dL [facility] Interpretation and review of laboratory results Abnormal [facility] Glucose [Mass/Vol] 185 mg/dL High 65 - 99 mg/dL [facility] Interpretation and review of laboratory results Abnormal [facility] URINALYSISon 12-08-2019 Bacteria Auto Ql (U) Rare Abnormal None Se en /hpf [facility] Bilirubin Ql (U) Negative Negative [facility] Clarity Refractometry automated (U) Clear Clear [facility] Color (U) Yellow Colorless, Yellow [facility] Glucose Auto test strip (U) [Mass/Vol] 150 Abnormal Negative mg/dL [facility] Hemoglobin Auto test strip Ql (U) Small Abnormal Negative [facility] Interpretation and review of laboratory results Abnormal [facility] Ketones (U) [Mass/Vol] Negative Negative mg/dL [facility] Leukocyte esterase Auto test strip Ql (U) Negative Negative [facility] Nitrite Auto test strip Ql (U) Negative Negative [facility] pH (U) 6.0 [pH] [facility] Protein (U) [Mass/Vol] Negative Negative mg/dL [facility] RBC Auto (Urine sed) [#/Area] 2 [facility] Specific gravity (U) [Rel density] 1.013 [facility] Urobilinogen (U) [Mass/Vol] <2.0 <2.0 mg/dL [facility] WBC Auto (Urine sed) [#/Area] 7 High [facility] Microscopic examination is performed on all urinalysis samples and only positive findings are reported. The test for blood on the chemical analytic portion of urinalysis may also be positive due to hemoglobinuria and myoglobinuria and if red blood cells are present they are quantified by microscopic examination. [facility] B12/Folateon 12-07-2019 Cobalamin (Vitamin B12) [Mass/Vol] 828 pg/mL 193 - 986 pg/mL [facility] Folate [Mass/Vol] ng/mL High 3.1 - 17.5 ng/mL [facility] Comment on above: Deficient <2.2 Borderline 2.2 - 3.0 Excessive >17.5 Interpretation and review of laboratory results Abnormal [facility] CBC WITH AUTO DIFFERENTIALon 12-07-2019 Basophils (Bld) [#/Vol] 0.02 10*3/uL [facility] Basophils/100 WBC (Bld) 0.3 % [facility] Eosinophils (Bld) [#/Vol] 0.13 10*3/uL [facility] Eosinophils/100 WBC (Bld) 1.9 % [facility] Erythrocyte distribution width (RBC) [Entitic vol] 13.7 % 11.6 - 14.8 % [facility] Hematocrit (Bld) [Volume fraction] 36.8 % Low 41 - 53 % [facility] Hemoglobin (Bld) [Mass/Vol] 11.3 g/dL Low 13.5 - 17.5 g/dL [facility] Immature granulocytes (Bld) [#/Vol] 0.02 10*3/uL [facility] Immature granulocytes/100 WBC (Bld) 0.30 % [facility] Comment on above: The IG parameter is the percentage of metamyelocytes, myelocytes, and promyelocytes. Interpretation and review of laboratory results Abnormal [facility] Lymphocytes (Bld) [#/Vol] 0.64 10*3/uL Low [facility] Lymphocytes/100 WBC (Bld) 9.2 % [facility] MCH (RBC) [Entitic mass] 26.7 pg 26 - 34 pg [facility] MCHC (RBC) [Mass/Vol] 30.7 g/dL Low 31 - 37 g/dL [facility] MCV (RBC) [Entitic vol] 87.0 fL 80 - 100 fL [facility] Monocytes (Bld) [#/Vol] 0.63 10*3/uL [facility] Monocytes/100 WBC (Bld) 9.1 % [facility] Neutrophils (Bld) [#/Vol] 5.51 10*3/uL [facility] Neutrophils/100 WBC (Bld) 79.2 % [facility] Nucleated RBC (Bld) [#/Vol] 0.00 10*3/uL [facility] Nucleated RBC/100 WBC (Bld) [Ratio] 0.0 % [facility] Platelet mean volume (Bld) [Entitic vol] 10.4 fL 9 - 15.5 fL [facility] Platelets (Bld) [#/Vol] 210 10*3/uL [facility] RBC (Bld) [#/Vol] 4.23 10*6/uL Low [facility] WBC (Bld) [#/Vol] 6.95 10*3/uL [facility] Comprehensive Metabolic Pane mervin 12-07-2019 Albumin [Mass/Vol] 2.4 g/dL Low 3.2 - 5.2 g/dL [facility] ALP [Catalytic activity/Vol] 76 U/L 40 - 150 U/L [facility] ALT [Catalytic activity/Vol] 40 U/L 14 - 65 U/L [facility] Anion gap [Moles/Vol] 9 mmol/L Low 10 - 2 0 mmol/L [facility] AST [Catalytic activity/Vol] 28 U/L 0 - 45 U/L [facility] Bilirubin [Mass/Vol] 0.4 mg/dL 0 - 1.3 mg/dL [facility] Calcium [Mass/Vol] 9.4 mg/dL 8.4 - 10. 2 mg/dL [facility] Chloride [Moles/Vol] 104 mmol/L 98 - 10 8 mmol/L [facility] Creatinine [Mass/Vol] 0.86 mg/dL 0.50 - 1.30 [facility] GFR/1.73 sq M predicted among non-blacks MDRD (S/P/Bld) [Vol rate/Area] The eGFR should be used for monitoring renal function only and not for medication dosing. [facility] GFR/1.73 sq M.predicted CKD-EPI (S/P/Bld) [Vol rate/Area] 96 >=60 mL/min/1.73 m2 [facility] Glucose [Mass/Vol] 243 mg/dL High 65 - 99 mg/dL [facility] HCO3 [Moles/Vol] 29 mmol/L 21 - 32 mmol/L [facility] Potassium [Moles/Vol] 3.9 mmol/L 3.5 - 5.1 mmol/L [facility] Protein [Mass/Vol] 6.6 g/dL 6 - 8 g/dL [facility] Sodium [Moles/Vol] 138 mmol/L 135 - 145 mmol/L [facility] Urea nitrogen [Mass/Vol] 17 mg/dL 8 - 25 mg/dL [facility] Urea nitrogen/Creatinine [Mass ratio] 19.8 mg/mg [facility] Ferritinon 12-07-2019 Ferritin [Mass/Vol] 211 ng/mL 30 - 400 ng/mL [facility] Interpretation and review of laboratory results Normal [facility] Ironon 12-07-2019 Iron [Mass/Vol] 30 ug/dL Low [facility] h Otheron 12-07-2019 Interpretation and review of laboratory results Abnormal [facility] POC Glucoseon 12-07-2019 Glucose [Mass/Vol] 345 mg/dL High 65 - 99 mg/dL [facility] Interpretation and review of laboratory results Abnormal [facility] Glucose [Mass/Vol] 239 mg/dL High 65 - 99 mg/dL [facility] Interpretation and review of laboratory results Abnormal [facility] Glucose [Mass/Vol] 341 mg/dL High 65 - 99 mg/dL [facility] Interpretation and review of laboratory results Abnormal [facility] Glucose [Mass/Vol] 242 mg/dL High 65 - 99 mg/dL [facility] Interpretation and review of laboratory results Abnormal [facility] Glucose [Mass/Vol] 277 mg/dL High 65 - 99 mg/dL [facility] Interpretation and review of laboratory results Abnormal [facility] URINALYSISon 12-07-2019 Bacteria Auto Ql (U) None Seen None Se en /hpf [facility] Bilirubin Ql (U) Negative Negative [facility] Clarity Refractometry automated (U) Clear Clear [facility] Color (U) Yellow Colorless, Yellow [facility] Epithelial cells.renal Computer assisted (U) [#/Area] <1 High [facility] Glucose Auto test strip (U) [Mass/Vol] >=500 Abnormal Negative mg/dL [facility] Hemoglobin Auto test strip Ql (U) Small Abnormal Negative [facility] Interpretation and review of laboratory results Abnormal [facility] Ketones (U) [Mass/Vol] Negative Negative mg/dL [facility] Leukocyte esterase Auto test strip Ql (U) Trace Abnormal Negative [facility] Nitrite Auto test strip Ql (U) Negative Negative [facility] pH (U) 6.0 [pH] [facility] Protein (U) [Mass/Vol] 30 Abnormal Negative mg/dL [facility] Comment on above: False positive resul ts may occur in urines with large amounts of hemoglobin, pH greater than 8.0, contrast medium, or disinfectants including ammonium compounds. RBC Auto (Urine sed) [#/Area] 1 [facility] Specific gravity (U) [Rel density] 1.007 [facility] Urobilinogen (U) [Mass/Vol] <2.0 <2.0 mg/dL [facility] WBC Auto (Urine sed) [#/Area] 3 [facility] Microscopic examination is performed on all urinalysis samples and only positive findings are reported. The test for blood on the chemical analytic portion of urinalysis may also be positive due to hemoglobinuria and myoglobinuria and if red blood cells are present they are quantified by microscopic examination. [facility] VITAMIN D, TOTAL, 25-OHon 25-Hydroxyvitamin D2+25-Hydroxyvitamin D3 [Mass/Vol] 16 ng/mL Low 30 - 100 ng/mL [facility] Comment on above: Vitamin D status: Deficiency: <20 ng/mL Insufficiency: 20-30 ng/mL Sufficiency: 30-100 ng/mL Toxicity: >100 ng/mL Please note that Fluorescein which is used in angiography has been shown to falsely elevate the results of Vitamin D with our current assay. Evidence suggests that patients undergoing fluorescein dye angiography can retain small amounts of fluorescein in the body for up to 48 to 72 hours post-treatment. In the cases of patients with renal insufficiency, retention could be much longer. Samples should be resubmitted post fluorescein clearance to ensure there is no interference with the Vitamin D test result. Interpretation and review of laboratory results Abnormal [facility] Assay performed bjorn Austin's chemiluminescence methodology. 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 [facility] FINDINGS/ 1. A new screw internally fixes the base of the 5th metatarsal to near anatomic alignment, however this screw is broken/fractured. 2. 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 Lateral subluxation of the 2nd through 5th metatarsal bases is again noted, as well as pes planus deformity. 3. Milder arthritis is noted in the tibiotalar joint and subtalar joint. 4. Large calcaneal enthesophytes are noted at the insertion sites of the plantar fascia and Achilles tendon. 5. No acute fracture, or other acute bony abnormality is seen. 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 IMPRESSION: FINDINGS/ 1. A new screw internally fixes the base of the 5th metatarsal to near anatomic alignment, however this screw is broken/fractured. 2. 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 Lateral subluxation of the 2nd through 5th metatarsal bases is again noted, as well as pes planus deformity. 3. Milder arthritis is noted in the tibiotalar joint and subtalar joint. 4. Large calcaneal enthesophytes are noted at the insertion sites of the plantar fascia and Achilles tendon. 5. No acute fracture, or other acute bony abnormality is seen. Workstation ID: [id number] [facility] Imm/Pathon 12-06-2019 Bacteria identified Cx Nom (Bld) [facility]-2019 Glucose [Mass/Vol] 362 mg/dL High 65 - 99 mg/dL [facility] Interpretation and review of laboratory results Abnormal [facility] Glucose [Mass/Vol] 369 mg/dL High 65 - 99 mg/dL [facility] Interpretation and review of laboratory results Abnormal [facility] Glucose [Mass/Vol] 247 mg/dL High 65 - 99 mg/dL [facility] Interpretation and review of laboratory results Abnormal [facility] Glucose [Mass/Vol] 216 mg/dL High 65 - 99 mg/dL [facility] Interpretation and review of laboratory results Abnormal [facility] Glucose [Mass/Vol] 265 mg/dL High 65 - 99 mg/dL [facility] Interpretation and review of laboratory results Abnormal [facility] TRANSFERRINon 12-06-2019 Interpretation and review of laboratory results Normal [facility] Transferrin [Mass/Vol] 215.0 mg/dL 212 - 360 mg/dL [facility] CBC WITH AUTO DIFFERENTIALon 12-05-2019 Basophils (Bld) [#/Vol] 0.02 10*3/uL [facility] Basophils/100 WBC (Bld) 0.3 % [facility] Eosinophils (Bld) [#/Vol] 0.18 10*3/uL [facility] Eosinophils/100 WBC (Bld) 2.3 % [facility] Erythrocyte distribution width (RBC) [Entitic vol] 13.8 % 11.6 - 14.8 % [facility] Hematocrit (Bld) [Volume fraction] 36.3 % Low 41 - 53 % [facility] Hemoglobin (Bld) [Mass/Vol] 11.4 g/dL Low 13.5 - 17.5 g/dL [facility] Immature granulocytes (Bld) [#/Vol] 0.05 10*3/uL [facility] Immature granulocytes/100 WBC (Bld) 0.60 % [facility] Comment on above: The IG parameter is the percentage of metamyelocytes, myelocytes, and promyelocytes. Interpretation and review of laboratory results Abnormal [facility] Lymphocytes (Bld) [#/Vol] 0.52 10*3/uL Low [facility] Lymphocytes/100 WBC (Bld) 6.5 % [facility] MCH (RBC) [Entitic mass] 27.0 pg 26 - 34 pg [facility] MCHC (RBC) [Mass/Vol] 31.4 g/dL 31 - 37 g/dL [facility] MCV (RBC) [Entitic vol] 86.0 fL 80 - 100 fL [facility] Monocytes (Bld) [#/Vol] 0.78 10*3/uL [facility] Monocytes/100 WBC (Bld) 9.8 % [facility] Neutrophils (Bld) [#/Vol] 6.43 10*3/uL [facility] Neutrophils/100 WBC (Bld) 80.5 % [facility] Nucleated RBC (Bld) [#/Vol] 0.00 10*3/uL [facility] Nucleated RBC/100 WBC (Bld) [Ratio] 0.0 % [facility] Platelet mean volume (Bld) [Entitic vol] 10.3 fL 9 - 15.5 fL [facility] Platelets (Bld) [#/Vol] 228 10*3/uL [facility] RBC (Bld) [#/Vol] 4.22 10*6/uL Low [facility] WBC (Bld) [#/Vol] 7.98 10*3/uL [facility] CRP, Inflammationon 12-05-19 20 CRP [Mass/Vol] 85.3 mg/L High <=10.0 [facility] Comprehensive Metabolic Pane mervin 12-05-2019 Albumin [Mass/Vol] 2.4 g/dL Low 3.2 - 5.2 g/dL [facility] ALP [Catalytic activity/Vol] 75 U/L 40 - 150 U/L [facility] ALT [Catalytic activity/Vol] 31 U/L 14 - 65 U/L [facility] Anion gap [Moles/Vol] 9 mmol/L Low 10 - 2 0 mmol/L [facility] AST [Catalytic activity/Vol] 20 U/L 0 - 45 U/L [facility] Bilirubin [Mass/Vol] 0.4 mg/dL 0 - 1.3 mg/dL [facility] Calcium [Mass/Vol] 9.1 mg/dL 8.4 - 10. 2 mg/dL [facility] Chloride [Moles/Vol] 104 mmol/L 98 - 10 8 mmol/L [facility] Creatinine [Mass/Vol] 0.86 mg/dL 0.50 - 1.30 [facility] GFR/1.73 sq M predicted among non-blacks MDRD (S/P/Bld) [Vol rate/Area] The eGFR should be used for monitoring renal function only and not for medication dosing. [facility] GFR/1.73 sq M.predicted CKD-EPI (S/P/Bld) [Vol rate/Area] 96 >=60 mL/min/1.73 m2 [facility] Glucose [Mass/Vol] 223 mg/dL High 65 - 99 mg/dL [facility] HCO3 [Moles/Vol] 30 mmol/L 21 - 32 mmol/L [facility] Potassium [Moles/Vol] 4.1 mmol/L 3.5 - 5.1 mmol/L [facility] Protein [Mass/Vol] 6.4 g/dL 6 - 8 g/dL [facility] Sodium [Moles/Vol] 139 mmol/L 135 - 145 mmol/L [facility] Urea nitrogen [Mass/Vol] 19 mg/dL 8 - 25 mg/dL [facility] Urea nitrogen/Creatinine [Mass ratio] 22.1 mg/mg High [facility] Otheron 12-05-2019 Interpretation and review of laboratory results Abnormal [facility] POC Glucoseon 12-05-2019 Glucose [Mass/Vol] 319 mg/dL High 65 - 99 mg/dL [facility] Interpretation and review of laboratory results Abnormal [facility] Glucose [Mass/Vol] 415 mg/dL Critically high 65 - 99 mg/d L [facility] Interpretation and review of laboratory results Abnormal [facility] Critical result acte d upon time of test. Test performed at bedside. [facility] Glucose [Mass/Vol] 258 mg/dL High 65 - 99 mg/[facility] Interpretation and review of laboratory results Abnormal [facility] Glucose [Mass/Vol] 296 mg/dL High 65 - 99 mg/dL [facility] Interpretation and review of laboratory results Abnormal [facility] Glucose [Mass/Vol] 230 mg/dL High 65 - 99 mg/dL [facility] Interpretation and review of laboratory results Abnormal [facility] Glucose [Mass/Vol] 308 mg/dL High 65 - 99 mg/dL [facility] Interpretation and review of laboratory results Abnormal [facility] Sedimentation Rateon 020 ESR (Bld) [Velocity] 85 mm/h High [facility] Interpretation and review of laboratory results Abnormal [facility] TISSUE AEROBIC CULTUREon Bacteria identified Aer cx Nom (Tiss) Normal [place] After 48 Hours [facility] Microscopic observation Gram stain Nom (Tiss) Rare WBC [facility] Microscopic observation Gram stain Nom (Tiss) No Epithelial Cells Seen [facility] Microscopic observation Gram stain Nom (Tiss) No Organisms Seen [facility] TISSUE ANAEROBIC CULTUREon 0 12-05-2019 Bacteria identified Anaer cx Nom (Tiss) No Anaerobic Growth at 2 Days [facility] TISSUE EXAMon 12-05-2019 Case Report Surgical Pathology Report Case: [id number] Authorizing Provider: Alena Mora DPM Collected: 12/02/2019 03:03 PM Ordering Location: [facility] Received: 12/04/2019 09:09 AM Pathologist: Tony Abraham MD Specimen: Foot, Right, Soft Tissue Plantar Ulceration Right Foot [facility] Clinical information [id number] yMD YxRVHct8plRSAlnLAiMoVw MzNcZnRuYmpcdWMxXGRlZm Ogi8big316aMHuf3jhSVZa SeT5iMExRNFgxCLjB944z6 evy2ipfrNqzAK9SGEwXTT2 NVsybyBwnzO0PNgtvIXlHf U6NPnsxwQiCGlbuoYwlaGr Dgp5QRPnB617GWJ1rRfvq6 ofRTK4RMDlLDDeUjAvEm8d rMZjE871ZDAeJLYGUPDkiP g8UOTvzxNfevNifZPWv270 Y243y9qaCYPyftUicSaPid tqz5wcI446APMpmYQszyOc ArGcHEHiuHInvFQ5XKYmSZ 4ehldzAwXcUC2bmjzqXaQi VI8xpdx4MMZ0CKkpRRBbKz B6CESseQCjMGOkjYgpGXgz r617LIH9WFwcv9xzu9uslL DuTkk5XZLtAfEwFmnaSCtf l2Xwb7hsUGArrl4fCRZ1jX YhwBrze4X9dPIiTQVifIJl xkNkXGYyToF8MRneWI5jze 20DDUrBQH9mz4kaXGbbInw ovTerQFvZVdrT9XcECZrk2 00LSMaT3JnYLVqr0H8prAe TrPgCNGmfBN9vgB4GYAxFH f1fPJetxD4dpRnxDXzK5pu gP41PrNhiOVmD4LsfL06Nw YmuFEiM6KzlZ8eOYXbJW7l kxjzl0inBIK3THivBNCsQU B9BqQlFXInt5OeyfyaLBNy s4YeF8QorVncS69gcRjmB7 2cJUMolKcgpE6feZxhkT9a ZjBcZnMyNFxxbFxwbGFpbl xmMFxmczIwXGxhbmcxMDMz FRokI5wcMtSnHJVflCugPO kfd3PbXZVcCTJqScCxHXoo VKUnbfhlpCIjWy9cqKcjRH J9 [facility] Pathology report final diagnosis Narrative q3byvCFqOYNzzKLlCwDpVF FaNCHex6axFWTkhTHkIaMs MzNcZnRuYmpcdWMxXGRlZm Avf6iiq239fXSle7joKUCl GnC6nOQvMTTxvXXlI186KT TfMSeeq6npf8AeZRJnmVEj e0W6NNRNjlbbfHg0jHlkU1 7uo1E7UjymS5mlZATbRTZm A2DuPE1lUGZdCof8TXP2SB B3ZBPuOKEhP6YxXC9yEICc lAStHIwdjnSaLoJ5YEtiLG IxEgZ8TAGltHScBGtfY8vl ZWQwXGdyZWVuMFxibHVlMj J5EJr0q5xvgLleGXUyQOM6 w7mnTUyzwrNwUR3qnw0gyI c5p6gujkSjTWIjVMWuoZBF QSNyL7QnoBvwBz6aaNx1eL bgVdsjRYV0Pth0HE7bcy78 fnz5oBymTSGzrfzdDxZ7EK geJNHgjcjuUAa4TPqrEIIy bDcyMFxtYXJncjcyMFxtYX NlcRR1JWAqhPRsY8GkLGDd HJovHYJnzwi9TeZlIy7czO QtyIPeov2xxc62HGJ1a4Dh dXqpYPC8DEZ8FjGsCr9dvW MlOMAiBC3eVwAgqUUuXAOr gs60zDeqJEywuvGjrZ3gVq KcNKCixOJbSWKnRO4vuBEo BXEbyR5qqppiTDYeOzNyut cxZQYwzUswwwYoIt0wkOvp QRR2XAdsB4hxrX4lNbQ9AS muZ0vzwB3uFRq4FQwixUR5 RKPepI8vRI6cknvga2gcLz CiHQ2zcrtgw4rqQnEdDX4l gxd6m9fzQBX3KIroVGFhJs I4jkF7DBBfcKTaCMAloOip TMxwl656QXG6XWefIurgWL dlXHBnbmNvbnRccGduZGVj XHBsYWluXHBsYWluXGYwXG YqRjRneHwpsQarbJ8xTzGv GjSaGLttLG3iRFNeZ6vujQ FvIXQlHVAvG3wxAhGwdX1t aFxmMVxjZjJcZnMyMFxiIE RcHKTedVefiO8vMjRwRoSn GOdfTL9gRIYwK6qehQBqVT JcUPEjP9noNtRvmV3tqPqe MVxjZjJcZnMyMFxiXHByb3 NjE4J5ZPUaGCqvd5lhDPXt YCyen7LgDQgFJQXRLN2PRY 9iuTM7NFuQCKRVJ9kLmQJ9 IiA4wEC6OB06OQHbMQSxuX TmWYvnB638DJLxCArmUZTt XGZzMjBcbGFuZzEwMzNcaG ljaFxmMVxkYmNoXGYxXGxv T3fpOlWnX9LwMONwAqWeCh wwgv49JTP9HCXnOqUyiXns l0XnAWKszBducY7uWtYfGg BoOEoxRX8xXFNuV0mgeMAo SXToDKZqM3hsHkUeoX2znW xmMVxjZjRcZnMyMFxiXHBy o2DwT0Y7DQVvPRhvy6luRA OuBZqkc8ArXLhKEAIMIR4O QY0xyBU8X1rGXGZML4zPvL O4n4uqiRAsz3v5QAdiOHQ3 fVxwbGFpblxmMVxmczIwXG cksvvtGHPaTAaoD7eoLnWf IIPwdBjtLDkmi7EbCUQlNV NmMlxmczIwXGJccHJvdGVj hPQEqYtxaALZo527ERXmXM luXGYxXGZzMjBcbGFuZzEw MzNcaGljaFxmMVxkYmNoXG KcTLzwI5qiJdCzU5S7KFMk QdWiCfrwwh69MRW9b1wccF GiWNliHwqpgKZdzqQ8TAvI EYXWTXjWArWgWR5mEMuXWR VMKlK7JB57UNTkLVGfmVFd NMqfJ083RHLbRAfyTFNkGZ ZzMjBcbGFuZzEwMzNcaGlj aFxmMVxkYmNoXGYxXGxvY2 fvDaCeK4LqEENbUkDlDloe hv89QSK0SMghODbcyPSqx4 46XHBsYWluXGYxXGZzMjBc bGFuZzEwMzNcaGljaFxmMV jeJgTbEKCcBJkvM5glJsEp S3RfLTAtAcFuGhivbh61NE E0l7wwnSHzTSziGcjvwYCg deM4YVoEETDCTSiLUsQpPW 2yQBdNO3KMExT4WwPuQYC0 MHwwfXtcZmxkcnNsdCBcJz OnfC5jyQokzM4qPyFuGzZm NUomFI9eDBGkG9rmbOSxID ZfWHRvI4dtNgXaxI5kxZdx MVxmczIwXHBhclxsaTcyMF igiYSbafknZFqanoE0SDKe YWluXGYxXGZzMjBcbGFuZz EwMzNcaGljaFxmMVxkYmNo MEGdWLxdG1goJlKzDgXtNR XGv15sb7TgS3qpeMIhfYlw ZXIuXHBsYWluXGYxXGZzMj JcbGFuZzEwMzNcaGljaFxm ZVilTgSyUUJyDNdeQ6ccIr PqY0OySSZrRcFblVCjKAfq QSpopCLdnpdpDCjldyF7WW BsYWluXGYxXGZzMjJcbGFu ZzEwMzNcaGljaFxmMVxkYm NbQGGbLJkfE5vmFaCeK2Xa XGZzMjJccGFyXHBhclxwbG FpblxmMVxmczIwXGxhbmcx JDWlKGqrT5wtGbDnTVNjkA grRZprg6JeCYRjMFClPxXg sCAvDYQoP47CQxKSCATQC4 4BBNMBQFSER1KZC2dGQWM3 LfN6gPW6XMt3MknzMFBDRU PMKTcTVA9TMQIJUCMEER6U CbKuO9aAPIGVVwMrUVIJXL OEHHTuZlXJHO4eXCr2Razl tQDmEj4hyYrPUEQOLEGNM5 3HZDFGJKIEM8IVPWTPRTMJ GUiUHASORy8RKCREYAHEBV 9CRUdJTiAwXHtBUHBhcnRz QtW4YjE5ME3iXKlIZ2EEB6 uKQLXsLLPFBHFTLJRmPA3V KYzSKV7FODSqCCZYOQEZLM UaOsTVAR3sEIwMZG7KJDMr YWTNPMSAMJRwNX4TOUXRIW 2JGICVLBAHW93ZZANGTDCJ U5MRK7bHJMZYKQLCDfCWJs AISQ8PAMRMKNGGZZ8LHvH3 [facility] Pathology report gross observation Narrative v8dzsFKhYDNqqGLnDsVfEH HdCROhl3giKAGbrFQuNpWr MzNcZnRuYmpcdWMxXGRlZm Ohw7dev646uPXat7bvXGFf KfL9nPOmZONheQDxY311WZ MjMMzof8rpe6WeCBOtuPYk w0C0SCEOvjvjlLu1tQqfF2 2ro0V0LdtqN6yeFNJsMNIs N6RgEY9cLZQeLax4APT9AG W0PLTjAAKkV9NhNT0oFQTh sWOgDRmrgvHaLeT1UBkqRY ZsLnD7HEBotLHnKRmnB4yu ZWQwXGdyZWVuMFxibHVlMj X5AEv3w3cleLqcYJXnSUN8 w8hsCCjiztMnQM6uoq5erB s0s0bnibPnXUOkSAMkbFDM WZEeA3UinTgkJs8koBv6mQ xdUkbxKPB6Zba1OR5fon84 vms4bAreHBQzdvunXeY1PB enUSClkjmaFDt9BTdvHOAh bDcyMFxtYXJncjcyMFxtYX AyuWY4LEFyjEXwM2OpHALk UZboVSQxtta3XwAlUk0ulY IdcKQerp5eox57ODE9i2Kj kLqlYPJ8SMA6TrTkUl8zdL WjQTXoRO2dGuLopQYbCGBp fj44eDgmFFxnboCshI3uOf PcLJNtwYBoIWOtUX1ksDJt RZTumO6naclyCGUeWtOnxf qfFMLrgEzvcfWwLs6glVdj OOH6QZflF4zxiV4gLuO4KL lcB0dljF7dHYz0YEifjTQ9 NHOqyF3lIF2uuedef6boCf UuHO8ytzghk6dcZaSoPD8e xlq9m3wmLFZ7YLbgYLRhAk H1trE4OBJuyJQlIQIqsOei WTdih089JGM7LOgfHvdbHN dlXHBnbmNvbnRccGduZGVj XHBsYWluXHBsYWluXGYwXG ZzMjRccGFyZFxwbGFpblxm MVxmczIwXGxhbmcxMDMzXG tyF5mbNfPlGRToyOmwTHov t6AkTSIsSCRsRiGbSnIeNT m4XRLoCnVxo8wsHXMpa1fa feX2QAZhXnJdM87swKBVgO DaqRPmOVPibOnceS8yVcBp BlCnDAkyGX7yULRfI0xhtU SdYGBiNSMyH2edPwEdeV2v aFxmMVxjZjJcZnMyMFxwcm 66EPG2s5mdhDOnMUecHnxg wBCueuN5QOvICTWMHThKNh YnIA3zOGxJU3EFZTpCIrrh SFE6IIcksXW3z9rmfDQgg7 c9LZgkIVQ8cWwrsCLrmmrr MVxmczIwXGxhbmcxMDMzXG ghW3ujFtEaMVPlgTrfABjn w1OnTBAfKMRaHddncfCkQK Onk6HoW9NxuBZxHLocwJOg blxmMVxmczIwXGxhbmcxMD AqJWqwZ9hpJzHrIAVpaTmd XOhvb8XvBRRpDSYyZnlwah OfOIVta5IjP1D1HXFoEAtq t6uhUXEcGQaig2BmNXuPCA YNEO8YQQ9hfKF3GZvDLVAL JIecYNV3IFgqiIF0y1tpsX Pms1w8UWtfBYF4wIodcNYz blxmMVxmczIwXGxhbmcxMD UeEQkpU7zjWuDuVGBhmKry AIwjv4OgAHMvVVYsYsMbGA XhJQjzKK24YFYaHD2oDRQn PBBxz5B6QXPyp8U2WHNmQJ SofNTmgnddPW99XQqeWG04 NExiAK54SIOdYMTfGMgxVR YxXGZzMjBcbGFuZzEwMzNc aGljaFxmMVxkYmNoXGYxXG pkG4jyTfHxJ9BcAZSeAuOk bCGdqTAyeQhhVzrzjZU9WW qrLtmiaF3qpFFIHTNKPdlU LvbhxqBzCR9IJFNUUbAWAO 58ByQlBCW4AWgclOagPxfh hoNpiBRfKrBfjQ9pfNgelG 7dRxCsCzBkMFqmXT8wVDAt L6oqsLWcJZAsYBMrQ8urAx XicW9ikNlfYTozYbHjDtPj INcnlb26MQX4PG1czVtwtT 9hXvXrAjRmKOimLK1nGMMj N1hjxTHcEVPcABTeN9koDe CavS5lsXrsMPlbJiLuJxQu EUlixv96QLM0s5rikKYuPO taRkzdsPKrusL0TDdIZZXP CTqQTcYsAO0iHIiKH6ZLZh W9CwPgFMZ6YXlbnYljQdlv bePjkOVxFeDzhE4feWoehT 9rAeUqGnLdYZfzRA1bGOEn K5agzZUuHSOiDFZrI7qwHm EleZ6bxIycLBhlxrXvFPDj IFxwbGFpblxmMVxmczIwXG xyyqnzXMStDUusJ9dsObIw UMZueCtsLTkkf2GeAZPoBJ SjCvewpeEbWTUou4RsI9W7 TBSgSHjks6ksTLFmGLudy6 ZjNQlLAFKNZQ4QVY4ogIE9 WWfFZMHXK6nQnZQ6DOA0qC F2Ip62ULQxUQOzkDOnPIts E301FUTmGJfcNBIfAMPvFn BcbGFuZzEwMzNcaGljaFxm JDkxZiUzMKMcZHbeB4miAd HgU1AcOYBjNeLdmKXnsOCp oDUCy3ApjZu5QAK1Py4ogD UnPQQrlzUgxGocfP7vFkDm DcGsXPznHL0nSRClT0gbkB MjKPRfFVClC9mfWyOekY1y aFxmMVxjZjRcZnMyMFxwcm 87VEX1l5ohkTQvSMcuAznb lLHuquJ4LNwRUXZTOMvWUc OvFP8uVLiBYOFPMCdTBqma fXtcZmxkcnNsdCBcJzFjfX 1nsWhycF5dJpUmUjAeNItb VY5tEVBlQ3vflDNrQWOxWW AdW6dxFsCovY7clNzvVFzs KdUkIvAfXMizra47UOA5RV YfkVjkpE9eZiTyFaDlWDpc VA3dGGKcC8uxeRFzKDDrKM HgS1kyMoMfvC3sqSrxTFds SaOnJzTkBDfauj53MJK4p4 xmaWVsZHtcKlxmbGRpbnN0 KMlNILKDPYaBDwZeMA4vRJ mJWADVJrP1BH02IWCpFBAr qMFtHYmyS934PWOoHBjxYI YxXGZzMjBcbGFuZzEwMzNc aGljaFxmMVxkYmNoXGYxXG zzZ5puHxOhI0KlLSTwJrIk hKVqmCYefGWuQ2Xpd9C2cB UocykuXHBsYWluXGYxXGZz MjBcbGFuZzEwMzNcaGljaF htGXvyBsMlCIJtVRodI8nx IgLmI8WiAEByEnVyjUGaoD RxnNfpGxvffZP5HHstYvuz bK7mxTJVCGQMVygBMtijyb TzTY3WGWABPW2EdZL5TOZ6 aAV6Zw75VREzDHWqdQCwHL ioX451VFPuZNtmIMZzZCEg MjBcbGFuZzEwMzNcaGljaF niDKyfGyIjINXwABkfH0wk ZjFcZnMyMFxwYXJccGFyIE xNXHBhclxxbFxwbGFpblxm DWdxkcW9LLQcSIthHMDwAS ZzMjBcbGFuZzEwMzNcaGlj aFxmMVxkYmNoXGYxXGxvY2 svIiTeRvHrWUACuv7dafDa iXHoxX6sgWzpqgVsYLPyq8 QqFRAsKBM1XV4urdEglHJn GJUBy1ZiiUEpeUYxUMWaKW PBmVXts50roeRDrkPelCVz EFOih6DcVCwvZJVIPKK1PW sdI4vuQINhjjZVWFCADGjP N1YmJWURBIQDNBRhQsOZHM 8cZcLqRTA1VA8uYkolGnIw ZJC4DI3qZsvxEqZ6XXA3Iw 6iPjbeLQYQSSQAJCkGNG8Q IDNNATSOPL9TYwOxA9sUEO NBUkRfTUVUQURBVEFfQkVH YL0dJCa6OTmFDBCYXHIRE1 9LDWRWSSMDA4BJRMABEOGU XTuEESPCFb5XLXQUSPOLSV 4NJRfWNoJxQXbAEVOnlU0t SSFgCM15MNKpvLo0iARqHI syHGW3TXa0RUy5QUJylX9o YLyqhhWbJIEeSpR3IJPhBF 0yXHtBUFJTdnNURTozNDQw Xbv3DBKIFWNESO0TQQZGR1 0KHKHJPUZFU4XJUVTVRmPK SNUAD46ICCGEUQOHI0NUS5 xDGXCFMqRLHGRWT89AROVR CUHJF1VYGYZVKKXMDsRJMw MQSX0RFJPANUREOH2RGSpR WdEgLKSXN3NDKhLLP7hmQG ZOXRWABDOgJY7WmH== [facility] Pathology report microscopic observation Narrative Other stain l3vbuEVoKPPfzFVkQwXwAH PnQKRug8wwAIBmzVNfKcXh MzNcZnRuYmpcdWMxXGRlZm And9fmy492sRJgk0dfNZLs ZtG3uBZyXMPxvJUfY598BM ZrAVuhf9mjc2BcNKMmsUOv j8F8UIZYreqkcCd8cDqaE9 9gy8T6LdpyB1arHCLlHFNu J6NxEQ1sMSZyOwx7MFE6IH C8QJJfGQEqW3PnKD8xTIBt wCHmXLd6o3txdVqzOEOwHQ H4z5scTBlqhaSwQO6her6a cLn2q9fayaZyBMRzFTWciL VFGHZzQ9RgyVhjRq2wqLy1 uIdiKimmHYF0Kwg1VY3pmq 21zxg6vWfpBZWxebsrUrH1 EMdcUCImrtxrIYw5ATskFA UkgLA0SNIalUWjD6LuTNWz GW5exua6GLR9WAhuMBZfYk M9XYIsbCThHIPojSwhMJfs c147RIJ3NvIlIB4uK4Pio7 X4zK9lhLEyJXUrzCGwCuYg IFYpep3fdYWcAJjqe6JsKY G2hnL2eUQclYTbYYNcCT03 Kyezp9KvYbwwHAY8WWZoay Fzl7Gso9yvQjWdnyItR6uh B8HbHVBrIYVpAECkGgHbfq Bpw0Xth5UivJEljGm3d5pd AJThRYDlxXsax7rdDDH0GP ZmF6N2dVJuy4ifNIyyOFRg pLM5xoD2LYBtpGIkO9NgbT 6hVLLjDD0rxbz3b4uqMWW4 KPrsVAKxKhA0xkK6VTWreC HfXOPhdFwrKJver990WQN8 EbCoQYWnl6RiU2ZfvFoeV5 7cdQllD27tDMYueWwrgB4e kJwviK6sPzRvYvHjBFuxoT xwbGFpblxmMVxmczIwXGxh cizqSBApQKrrN6ooMjHdKE WyaCcaJIutx9JuCQFjXSHx GaDmURumlu8bZ02ynCCiVV kjvMyfSJAfk44laWDvdTNy [id number] [facility] POC Glucoseon 12-04-2019 Glucose [Mass/Vol] 340 mg/dL High 65 - 99 mg/dL [facility] Interpretation and review of laboratory results Abnormal [facility] Glucose [Mass/Vol] 362 mg/dL High 65 - 99 mg/dL [facility] Interpretation and review of laboratory results Abnormal [facility] Glucose [Mass/Vol] 330 mg/dL High 65 - 99 mg/dL [facility] Interpretation and review of laboratory results Abnormal [facility] Glucose [Mass/Vol] 309 mg/dL High 65 - 99 mg/dL [facility] Interpretation and review of laboratory results Abnormal [facility] Glucose [Mass/Vol] 243 mg/dL High 65 - 99 mg/[facility] [facility] POC Glucoseon 12-03-2019 Glucose [Mass/Vol] 337 mg/dL High 65 - 99 mg/dL [facility] Interpretation and review of laboratory results Abnormal [facility] Glucose [Mass/Vol] 378 mg/dL High 65 - 99 mg/dL [facility] Interpretation and review of laboratory results Abnormal [facility] Glucose [Mass/Vol] 353 mg/dL High 65 - 99 mg/dL [facility] Interpretation and review of laboratory results Abnormal [facility] Glucose [Mass/Vol] 302 mg/dL High 65 - 99 mg/dL [facility] Interpretation and review of laboratory results Abnormal [facility] Glucose [Mass/Vol] 258 mg/dL High 65 - 99 mg/dL [facility] Interpretation and review of laboratory results Abnormal [facility] CBC WITH AUTO DIFFERENTIALon 12-02-2019 Basophils (Bld) [#/Vol] 0.02 10*3/uL [facility] Basophils/100 WBC (Bld) 0.2 % [facility] Eosinophils (Bld) [#/Vol] 0.15 10*3/uL [facility] Eosinophils/100 WBC (Bld) 1.6 % [facility] Erythrocyte distribution width (RBC) [Entitic vol] 13.6 % 11.6 - 14.8 % [facility] Hematocrit (Bld) [Volume fraction] 36.7 % Low 41 - 53 % [facility] Hemoglobin (Bld) [Mass/Vol] 11.5 g/dL Low 13.5 - 17.5 g/dL [facility] Immature granulocytes (Bld) [#/Vol] 0.13 10*3/uL [facility] Immature granulocytes/100 WBC (Bld) 1.40 % [facility] Comment on above: The IG parameter is the percentage of metamyelocytes, myelocytes, and promyelocytes. Interpretation and review of laboratory results Abnormal [facility] Lymphocytes (Bld) [#/Vol] 0.53 10*3/uL Low [facility] Lymphocytes/100 WBC (Bld) 5.6 % [facility] MCH (RBC) [Entitic mass] 26.8 pg 26 - 34 pg [facility] MCHC (RBC) [Mass/Vol] 31.3 g/dL 31 - 37 g/dL [facility] MCV (RBC) [Entitic vol] 85.5 fL 80 - 100 fL [facility] Monocytes (Bld) [#/Vol] 0.98 10*3/uL High [facility] Monocytes/100 WBC (Bld) 10.4 % [facility] Neutrophils (Bld) [#/Vol] 7.62 10*3/uL High [facility] Neutrophils/100 WBC (Bld) 80.8 % [facility] Nucleated RBC (Bld) [#/Vol] 0.00 10*3/uL [facility] Nucleated RBC/100 WBC (Bld) [Ratio] 0.0 % [facility] Platelet mean volume (Bld) [Entitic vol] 9.8 fL 9 - 15.5 fL [facility] Platelets (Bld) [#/Vol] 235 10*3/uL [facility] RBC (Bld) [#/Vol] 4.29 10*6/uL Low [facility] WBC (Bld) [#/Vol] 9.43 10*3/uL [facility] CRP, Inflammationon 12-02-19 20 CRP [Mass/Vol] 76.1 mg/L High <=10.0 [facility] Comprehensive Metabolic Pane mervin 12-02-2019 Albumin [Mass/Vol] 2.4 g/dL Low 3.2 - 5.2 g/dL [facility] ALP [Catalytic activity/Vol] 82 U/L 40 - 150 U/L [facility] ALT [Catalytic activity/Vol] 53 U/L 14 - 65 U/L [facility] Anion gap [Moles/Vol] 10 mmol/L 10 - 2 0 mmol/L [facility] AST [Catalytic activity/Vol] 32 U/L 0 - 45 U/L [facility] Bilirubin [Mass/Vol] 0.4 mg/dL 0 - 1.3 mg/dL [facility] Calcium [Mass/Vol] 9.2 mg/dL 8.4 - 10. 2 mg/dL [facility] Chloride [Moles/Vol] 102 mmol/L 98 - 10 8 mmol/L [facility] Creatinine [Mass/Vol] 1.06 mg/dL 0.50 - 1.30 [facility] GFR/1.73 sq M predicted among non-blacks MDRD (S/P/Bld) [Vol rate/Area] The eGFR should be used for monitoring renal function only and not for medication dosing. [facility] GFR/1.73 sq M.predicted CKD-EPI (S/P/Bld) [Vol rate/Area] 78 >=60 mL/min/1.73 m2 [facility] Glucose [Mass/Vol] 256 mg/dL High 65 - 99 mg/dL [facility] HCO3 [Moles/Vol] 30 mmol/L 21 - 32 mmol/L [facility] Potassium [Moles/Vol] 4.7 mmol/L 3.5 - 5.1 mmol/L [facility] Protein [Mass/Vol] 6.7 g/dL 6 - 8 g/dL [facility] Sodium [Moles/Vol] 137 mmol/L 135 - 145 mmol/L [facility] Urea nitrogen [Mass/Vol] 19 mg/dL 8 - 25 mg/dL [facility] Urea nitrogen/Creatinine [Mass ratio] 17.9 mg/mg [facility] Otheron 12-02-2019 Interpretation and review of laboratory results Abnormal [facility] POC Glucoseon 12-02-2019 Glucose [Mass/Vol] 306 mg/dL High 65 - 99 mg/dL [facility] Interpretation and review of laboratory results Abnormal [facility] Glucose [Mass/Vol] 278 mg/dL High 65 - 99 mg/dL [facility] Interpretation and review of laboratory results Abnormal [facility] Glucose [Mass/Vol] 226 mg/dL High 65 - 99 mg/dL [facility] Interpretation and review of laboratory results Abnormal [facility] Glucose [Mass/Vol] 219 mg/dL High 65 - 99 mg/dL [facility] Interpretation and review of laboratory results Abnormal [facility] Glucose [Mass/Vol] 286 mg/dL High 65 - 99 mg/dL [facility] Interpretation and review of laboratory results Abnormal [facility] Sedimentation Rateon 020 ESR (Bld) [Velocity] 93 mm/h High [facility] Interpretation and review of laboratory results Abnormal [facility] XR OR Foot Rt 3+ Viewson EXAMINATION: XR OR FOOT RIGHT 3+ VIEWS HISTORY: ORDERING SYSTEM PROVIDED HISTORY: Rt. 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 TECHNIQUE: Fluoro Dose Ka,r mGy: Fluoro dose in Ka,r mGy: 0.25 0.11 minutes fluoroscopy time was provided to Dr. Mora. 3 fluoroscopic images are submitted without immediate interpretation requested. FINDINGS: Images demonstrate external fixation device, as well as a long screw extending through the calcaneus and subtalar joint as well as large fixation pins which extend through the metatarsal bases and into the talus. There is severe disorganization and deformity of the tarsal bones and displacement of the metatarsals relative to the tarsal bones. [facility] Interface, Rad In Fu ji Speechq - 12/02/2019 9:41 PM EST EXAMINATION: XR OR FOOT RIGHT 3+ VIEWS HISTORY: ORDERING SYSTEM PROVIDED HISTORY: Rt. 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 TECHNIQUE: Fluoro Dose Ka,r mGy: Fluoro dose in Ka,r mGy: 0.25 0.11 minutes fluoroscopy time was provided to Dr. Mora. 3 fluoroscopic images are submitted without immediate interpretation requested. FINDINGS: Images demonstrate external fixation device, as well as a long screw extending through the calcaneus and subtalar joint as well as large fixation pins which extend through the metatarsal bases and into the talus. There is severe disorganization and deformity of the tarsal bones and displacement of the metatarsals relative to the tarsal bones. IMPRESSION: Intraoperative fluoroscopy provided. Severe bony deformity of the foot as described. Please correlate with operative note. JRS/bd Workstation ID: [id number] [facility] Basic Metabolic Panelon 11-05 Anion gap [Moles/Vol] 9 mmol/L Low 10 - 2 0 mmol/L [facility] Calcium [Mass/Vol] 9.1 mg/dL 8.4 - 10. 2 mg/dL [facility] Chloride [Moles/Vol] 106 mmol/L 98 - 10 8 mmol/L [facility] Creatinine [Mass/Vol] 0.98 mg/dL 0.50 - 1.30 [facility] GFR/1.73 sq M predicted among non-blacks MDRD (S/P/Bld) [Vol rate/Area] The eGFR should be used for monitoring renal function only and not for medication dosing. [facility] GFR/1.73 sq M.predicted CKD-EPI (S/P/Bld) [Vol rate/Area] 85 >=60 mL/min/1.73 m2 [facility] Glucose [Mass/Vol] 223 mg/dL High 65 - 99 mg/dL [facility] HCO3 [Moles/Vol] 30 mmol/L 21 - 32 mmol/L [facility] Interpretation and review of laboratory results Abnormal [facility] Potassium [Moles/Vol] 5.0 mmol/L 3.5 - 5.1 mmol/L [facility] Sodium [Moles/Vol] 140 mmol/L 135 - 145 mmol/L [facility] Urea nitrogen [Mass/Vol] 22 mg/dL 8 - 25 mg/dL [facility] Urea nitrogen/Creatinine [Mass ratio] 22.4 mg/mg High [facility] CBCon 12-01-2019 Erythrocyte distribution width (RBC) [Entitic vol] 13.5 % 11.6 - 14.8 % [facility] Hematocrit (Bld) [Volume fraction] 35.6 % Low 41 - 53 % [facility] Hemoglobin (Bld) [Mass/Vol] 11.2 g/dL Low 13.5 - 17.5 g/dL [facility] Interpretation and review of laboratory results Abnormal [facility] MCH (RBC) [Entitic mass] 27.4 pg 26 - 34 pg [facility] MCHC (RBC) [Mass/Vol] 31.5 g/dL 31 - 37 g/dL [facility] MCV (RBC) [Entitic vol] 87.0 fL 80 - 100 fL [facility] Nucleated RBC (Bld) [#/Vol] 0.02 10*3/uL High [facility] Nucleated RBC/100 WBC (Bld) [Ratio] 0.2 % [facility] Platelet mean volume (Bld) [Entitic vol] 10.1 fL 9 - 15.5 fL [facility] Platelets (Bld) [#/Vol] 232 10*3/uL [facility] RBC (Bld) [#/Vol] 4.09 10*6/uL Low [facility] WBC (Bld) [#/Vol] 8.56 10*3/uL [facility] POC Glucoseon 12-01-2019 Glucose [Mass/Vol] 396 mg/dL High 65 - 99 mg/dL [facility] Interpretation and review of laboratory results Abnormal [facility] Glucose [Mass/Vol] 377 mg/dL High 65 - 99 mg/dL [facility] Interpretation and review of laboratory results Abnormal [facility] Glucose [Mass/Vol] 204 mg/dL High 65 - 99 mg/dL [facility] Interpretation and review of laboratory results Abnormal [facility] Glucose [Mass/Vol] 225 mg/dL High 65 - 99 mg/dL [facility] Interpretation and review of laboratory results Abnormal [facility] Glucose [Mass/Vol] 229 mg/dL High 65 - 99 mg/dL [facility] Interpretation and review of laboratory results Abnormal [facility] CBCon 11-30-2019 Erythrocyte distribution width (RBC) [Entitic vol] 13.7 % 11.6 - 14.8 % [facility] Hematocrit (Bld) [Volume fraction] 35.4 % Low 41 - 53 % [facility] Hemoglobin (Bld) [Mass/Vol] 10.8 g/dL Low 13.5 - 17.5 g/dL [facility] Interpretation and review of laboratory results Abnormal [facility] MCH (RBC) [Entitic mass] 26.8 pg 26 - 34 pg [facility] MCHC (RBC) [Mass/Vol] 30.5 g/dL Low 31 - 37 g/dL [facility] MCV (RBC) [Entitic vol] 87.8 fL 80 - 100 fL [facility] Nucleated RBC (Bld) [#/Vol] 0.00 10*3/uL [facility] Nucleated RBC/100 WBC (Bld) [Ratio] 0.0 % [facility] Platelet mean volume (Bld) [Entitic vol] 10.4 fL 9 - 15.5 fL [facility] Platelets (Bld) [#/Vol] 243 10*3/uL [facility] RBC (Bld) [#/Vol] 4.03 10*6/uL Low [facility] WBC (Bld) [#/Vol] 8.72 10*3/uL [facility] Comprehensive Metabolic Pane mervin 11-30-2019 Albumin [Mass/Vol] 2.5 g/dL Low 3.2 - 5.2 g/dL [facility] ALP [Catalytic activity/Vol] 67 U/L 40 - 150 U/L [facility] ALT [Catalytic activity/Vol] 56 U/L 14 - 65 U/L [facility] Anion gap [Moles/Vol] 9 mmol/L Low 10 - 2 0 mmol/L [facility] AST [Catalytic activity/Vol] 42 U/L 0 - 45 U/L [facility] Bilirubin [Mass/Vol] 0.3 mg/dL 0 - 1.3 mg/dL [facility] Calcium [Mass/Vol] 9.3 mg/dL 8.4 - 10. 2 mg/dL [facility] Chloride [Moles/Vol] 105 mmol/L 98 - 10 8 mmol/L [facility] Creatinine [Mass/Vol] 0.94 mg/dL 0.50 - 1.30 [facility] GFR/1.73 sq M predicted among non-blacks MDRD (S/P/Bld) [Vol rate/Area] The eGFR should be used for monitoring renal function only and not for medication dosing. [facility] GFR/1.73 sq M.predicted CKD-EPI (S/P/Bld) [Vol rate/Area] 90 >=60 mL/min/1.73 m2 [facility] Glucose [Mass/Vol] 127 mg/dL High 65 - 99 mg/dL [facility] HCO3 [Moles/Vol] 31 mmol/L 21 - 32 mmol/L [facility] Interpretation and review of laboratory results Abnormal [facility] Potassium [Moles/Vol] 4.9 mmol/L 3.5 - 5.1 mmol/L [facility] Protein [Mass/Vol] 6.5 g/dL 6 - 8 g/dL [facility] Sodium [Moles/Vol] 140 mmol/L 135 - 145 mmol/L [facility] Urea nitrogen [Mass/Vol] 24 mg/dL 8 - 25 mg/dL [facility] Urea nitrogen/Creatinine [Mass ratio] 25.5 mg/mg High [facility] POC Glucoseon 11-30-2019 Glucose [Mass/Vol] 231 mg/dL High 65 - 99 mg/dL [facility] Interpretation and review of laboratory results Abnormal [facility] Glucose [Mass/Vol] 155 mg/dL High 65 - 99 mg/dL [facility] Interpretation and review of laboratory results Abnormal [facility] Glucose [Mass/Vol] 149 mg/dL High 65 - 99 mg/dL [facility] Interpretation and review of laboratory results Abnormal [facility] Complete Blood Count + Diffe ramon 11-26-2019 Erythrocyte distribution width (RBC) [Ratio] 14.9 % above high threshold See Below [facility] Work Phone: Comment on above: Reference Range: 11. 5 - 14.5 Dx: nausea, infectio n Hematocrit (Bld) [Volume fraction] 35.3 % below low threshold See Below [facility] Work Phone: Comment on above: Reference Range: 41. 0 - 52.0 Dx: nausea, infectio n Hemoglobin (Bld) [Mass/Vol] 11.1 g/dL below low threshold See Below [facility] Work Phone: Comment on above: Reference Range: 13. 5 - 17.5 Dx: nausea, infectio n MCHC (RBC) [Mass/Vol] 31.4 g/dL below low threshold See Below [facility] Work Phone: Comment on above: Reference Range: 32. 0 - 36.0 Dx: nausea, infectio n MCV (RBC) [Entitic vol] 87 fL 80 - 100 [facility] Work Phone: Comment on above: Dx: nausea, infectio n Platelets (Bld) [#/Vol] 189 {x10E9/L} 150 - 450 [facility] Work Phone: Comment on above: Dx: nausea, infectio n RBC (Bld) [#/Vol] 4.05 {x10E12/L} below low threshold See Below [facility] Work Phone: Comment on above: Reference Range: 4.5 0 - 5.90 Dx: nausea, infectio n WBC (Bld) [#/Vol] 10.0 {x10E9/L} 4.4 - 11.3 [facility] Work Phone: Comment on above: Dx: nausea, infectio n Complete Blood Count + Differential SEE MANUAL DIFF [facility] Work Phone: Comment on above: Dx: nausea, infectio n Hematologyon 11-26-2019 Basophils (Bld) [#/Vol] 0.00 {x10E9/L} See Below [facility] Work Phone: Comment on above: Reference Range: 0.0 0 - 0.10 Dx: nausea, infectio n Basophils/100 WBC (Bld) 0.0 % 0.0 - 2.0 [facility] Work Phone: Comment on above: Dx: nausea, infectio n Eosinophils (Bld) [#/Vol] 0.10 {x10E9/L} See Below [facility] Work Phone: Comment on above: Reference Range: 0.0 0 - 0.70 Dx: nausea, infectio n Eosinophils/100 WBC (Bld) 1.0 % 0.0 - 6.0 [facility] Work Phone: Comment on above: Dx: nausea, infectio n Lymphocytes (Bld) [#/Vol] 0.50 {x10E9/L} below low threshold See Below [facility] Work Phone: Comment on above: Reference Range: 1.2 0 - 4.80 Dx: nausea, infectio n Lymphocytes/100 WBC (Bld) 5.0 % See Below [facility] Work Phone: Comment on above: Reference Range: 13. 0 - 44.0 Dx: nausea, infectio n Monocytes (Bld) [#/Vol] 0.90 {x10E9/L} See Below [facility] Work Phone: Comment on above: Reference Range: 0.1 0 - 1.00 Dx: nausea, infectio n Monocytes/100 WBC (Bld) 9.0 % 2.0 - 10.0 [facility] Work Phone: Comment on above: Dx: nausea, infectio n Metabolic Panelon 11-26-2019 ALP [Catalytic activity/Vol] 61 U/L 33 - 120 [facility] Work Phone: Comment on above: Dx: nausea, infectio n Anion gap [Moles/Vol] 10 mmol/L 10 - 20 [facility] Work Phone: Comment on above: Dx: nausea, infectio n Bilirubin [Mass/Vol] 0.4 mg/dL 0.0 - 1.2 [facility] Work Phone: Comment on above: Dx: nausea, infectio n Calcium [Mass/Vol] 8.7 mg/dL 8.6 - 10.3 [facility] Work Phone: Comment on above: Dx: nausea, infectio n Chloride [Moles/Vol] 103 mmol/L 98 - 107 [facility] Work Phone: Comment on above: Dx: nausea, infectio n CO2 [Moles/Vol] 30 mmol/L 21 - 32 [facility] Work Phone: Comment on above: Dx: nausea, infectio n Creatinine [Mass/Vol] 1.29 mg/dL See Below [facility] Work Phone: Comment on above: Reference Range: 0.5 0 - 1.30 Dx: nausea, infectio n Glucose [Mass/Vol] 206 mg/dL above high threshold 74 - 99 [facility] Work Phone: Comment on above: Dx: nausea, infectio n Potassium [Moles/Vol] 5.8 mmol/L above high threshold 3.5 - 5.3 [facility] Work Phone: Comment on above: Dx: nausea, infectio n Protein [Mass/Vol] 6.1 g/dL below low threshold 6.4 - 8.2 [facility] Work Phone: Comment on above: Dx: nausea, infectio n Sodium [Moles/Vol] 137 mmol/L 136 - 145 [facility] Work Phone: Comment on above: Dx: nausea, infectio n Urea nitrogen [Mass/Vol] 51 mg/dL above high threshold 6 - 23 [facility] Work Phone: Comment on above: Dx: nausea, infectio n Otheron 11-26-2019 Albumin BCP dye [Mass/Vol] 3.1 g/dL below low threshold 3.4 - 5.0 [facility] Work Phone: Comment on above: Dx: nausea, infectio n ALT With P-5'-P [Catalytic activity/Vol] 57 U/L above high threshold 10 - 52 [facility] Work Phone: Comment on above: Patients treated wit h Sulfasalazine may generate falsely decreased results for ALT. Dx: nausea, infectio n AST With P-5'-P [Catalytic activity/Vol] 38 U/L 9 - 39 [facility] Work Phone: Comment on above: Dx: nausea, infectio n Segmented neutrophils/100 WBC (Bld) 85.0 % See Below [facility] Work Phone: Comment on above: Reference Range: 40. 0 - 80.0 Percent differential counts (%) should be interpreted in the context of the absolute cell counts (cells/L). Dx: nausea, infectio n NORMAL [facility] Work Phone: Comment on above: Dx: nausea, infectio n 8.50 {x10E9/L} above high threshold See Below [facility] Work Phone: Comment on above: Reference Range: 1.2 0 - 7.70 Dx: nausea, infectio n Reference Range: 1.2 0 - 7.00 57 {mL/min/1.73m2} Abnormal >60 [facility] Work Phone: Comment on above: Dx: nausea, infectio n 69 {mL/min/1.73m2} >60 [facility] Work Phone: Comment on above: CALCULATIONS OF DOROTHEA MATED GFR ARE PERFORMED USING THE MDRD STUDY EQUATION FOR THE IDMS-TRACEABLE CREATININE METHODS. CLIN CHEM 2007;[id number] Dx: nausea, infectio n CBC WITH AUTO DIFFERENTIALon 11-24-2019 Basophils (Bld) [#/Vol] 0.01 10*3/uL [facility] Basophils/100 WBC (Bld) 0.2 % [facility] Eosinophils (Bld) [#/Vol] 0.11 10*3/uL [facility] Eosinophils/100 WBC (Bld) 1.8 % [facility] Erythrocyte distribution width (RBC) [Entitic vol] 14.0 % 11.6 - 14.8 % [facility] Hematocrit (Bld) [Volume fraction] 32.9 % Low 41 - 53 % [facility] Hemoglobin (Bld) [Mass/Vol] 10.1 g/dL Low 13.5 - 17.5 g/dL [facility] Immature granulocytes (Bld) [#/Vol] 0.02 10*3/uL [facility] Immature granulocytes/100 WBC (Bld) 0.30 % [facility] Comment on above: The IG parameter is the percentage of metamyelocytes, myelocytes, and promyelocytes. Interpretation and review of laboratory results Abnormal [facility] Lymphocytes (Bld) [#/Vol] 0.66 10*3/uL Low [facility] Lymphocytes/100 WBC (Bld) 11.0 % [facility] MCH (RBC) [Entitic mass] 27.5 pg 26 - 34 pg [facility] MCHC (RBC) [Mass/Vol] 30.7 g/dL Low 31 - 37 g/dL [facility] MCV (RBC) [Entitic vol] 89.6 fL 80 - 100 fL [facility] Monocytes (Bld) [#/Vol] 0.71 10*3/uL [facility] Monocytes/100 WBC (Bld) 11.8 % [facility] [place] Neutrophils (Bld) [#/Vol] 4.51 10*3/uL [facility] [place] Neutrophils/100 WBC (Bld) 74.9 % [facility] [place] Nucleated RBC (Bld) [#/Vol] 0.00 10*3/uL [facility] [place] Nucleated RBC/100 WBC (Bld) [Ratio] 0.0 % [facility] [place] Platelet mean volume (Bld) [Entitic vol] 11.2 fL 9 - 15.5 fL [facility] [place] Platelets (Bld) [#/Vol] 161 10*3/uL [facility] RBC (Bld) [#/Vol] 3.67 10*6/uL Low [facility] WBC (Bld) [#/Vol] 6.02 10*3/uL [facility] Chem 711-24-2019 Anion gap [Moles/Vol] 10 mmol/L 10 - 2 0 mmol/L [facility] [place] Chloride [Moles/Vol] 109 mmol/L High 98 - 10 8 mmol/L [facility] [place] Creatinine [Mass/Vol] 1.64 mg/dL High 0.50 - 1.30 [facility] GFR/1.73 sq M predicted among non-blacks MDRD (S/P/Bld) [Vol rate/Area] The eGFR should be used for monitoring renal function only and not for medication dosing. [facility] [place] GFR/1.73 sq M.predicted CKD-EPI (S/P/Bld) [Vol rate/Area] 46 Low >=60 mL/min/1.73 m2 [facility] [place] Glucose [Mass/Vol] 112 mg/dL High 65 - 99 mg/dL [facility] HCO3 [Moles/Vol] 28 mmol/L 21 - 32 mmol/L [facility] Interpretation and review of laboratory results Abnormal [facility] Potassium [Moles/Vol] 4.5 mmol/L 3.5 - 5.1 mmol/L [facility] Sodium [Moles/Vol] 142 mmol/L 135 - 145 mmol/L [facility] Urea nitrogen [Mass/Vol] 49 mg/dL High 8 - 25 mg/dL [facility] Urea nitrogen/Creatinine [Mass ratio] 29.9 mg/mg High [facility] Magnesium Levelon 11-24-2019 Interpretation and review of laboratory results Normal [facility] [place] Magnesium [Mass/Vol] 2.1 mg/dL 1.6 - 2 .4 mg/dL [facility] POC Glucoseon 11-24-2019 Glucose [Mass/Vol] 120 mg/dL High 65 - 99 mg/dL [facility] Interpretation and review of laboratory results Abnormal [facility] Glucose [Mass/Vol] 137 mg/dL High 65 - 99 mg/dL [facility] Interpretation and review of laboratory results Abnormal [facility] Glucose [Mass/Vol] 96 mg/dL 65 - 99 mg/dL [facility] Interpretation and review of laboratory results Normal [facility] CBC WITH AUTO DIFFERENTIALon 11-23-2019 Basophils (Bld) [#/Vol] 0.02 10*3/uL [facility] [place] Basophils/100 WBC (Bld) 0.2 % [facility] Eosinophils (Bld) [#/Vol] 0.07 10*3/uL [facility] Eosinophils/100 WBC (Bld) 0.8 % [facility] Erythrocyte distribution width (RBC) [Entitic vol] 13.9 % 11.6 - 14.8 % [facility] Hematocrit (Bld) [Volume fraction] 32.8 % Low 41 - 53 % [facility] Hemoglobin (Bld) [Mass/Vol] 9.9 g/dL Low 13.5 - 17.5 g/dL [facility] [place] Immature granulocytes (Bld) [#/Vol] 0.03 10*3/uL [facility] Immature granulocytes/100 WBC (Bld) 0.40 % [facility] Comment on above: The IG parameter is the percentage of metamyelocytes, myelocytes, and promyelocytes. Interpretation and review of laboratory results Abnormal [facility] Lymphocytes (Bld) [#/Vol] 0.50 10*3/uL Low [facility] Lymphocytes/100 WBC (Bld) 6.0 % [facility] MCH (RBC) [Entitic mass] 26.9 pg 26 - 34 pg [facility] MCHC (RBC) [Mass/Vol] 30.2 g/dL Low 31 - 37 g/dL [facility] MCV (RBC) [Entitic vol] 89.1 fL 80 - 100 fL [facility] Monocytes (Bld) [#/Vol] 0.79 10*3/uL [facility] Monocytes/100 WBC (Bld) 9.5 % [facility] Neutrophils (Bld) [#/Vol] 6.88 10*3/uL [facility] Neutrophils/100 WBC (Bld) 83.1 % [facility] Nucleated RBC (Bld) [#/Vol] 0.00 10*3/uL [facility] [place] Nucleated RBC/100 WBC (Bld) [Ratio] 0.0 % [facility] Platelet mean volume (Bld) [Entitic vol] 11.2 fL 9 - 15.5 fL [facility] [place] Platelets (Bld) [#/Vol] 132 10*3/uL Low [facility] RBC (Bld) [#/Vol] 3.68 10*6/uL Low [facility] WBC (Bld) [#/Vol] 8.29 10*3/uL [facility] Chem 7on 11-23-2019 Anion gap [Moles/Vol] 11 mmol/L 10 - 2 0 mmol/L [facility] [place] Chloride [Moles/Vol] 106 mmol/L 98 - 10 8 mmol/L [facility] Creatinine [Mass/Vol] 1.31 mg/dL High 0.50 - 1.30 [facility] GFR/1.73 sq M predicted among non-blacks MDRD (S/P/Bld) [Vol rate/Area] The eGFR should be used for monitoring renal function only and not for medication dosing. [facility] GFR/1.73 sq M.predicted CKD-EPI (S/P/Bld) [Vol rate/Area] 60 >=60 mL/min/1.73 m2 [facility] Glucose [Mass/Vol] 111 mg/dL High 65 - 99 mg/dL [facility] HCO3 [Moles/Vol] 26 mmol/L 21 - 32 mmol/L [facility] Interpretation and review of laboratory results Abnormal [facility] Potassium [Moles/Vol] 4.6 mmol/L 3.5 - 5.1 mmol/L [facility] Sodium [Moles/Vol] 138 mmol/L 135 - 145 mmol/L [facility] Urea nitrogen [Mass/Vol] 35 mg/dL High 8 - 25 mg/dL [facility] Urea nitrogen/Creatinine [Mass ratio] 26.7 mg/mg [facility] ECHOCARDIOGRAM 2D COMPLETEon 11-23-2019 Interface, Rad In [facility] Echopacs - 11/23/2019 4:[address] [address] [place] [address] --------- ----- ECHOCARDIOGRAPHY REPORT - [facility] --------- ----- Name: DYLLAN HUERTAS Age: 59 years Date: 11/23/2019 [facility] #: [id number] : 1960 Room: [address] [place] [address] #: [id number] Sex: M Tech: Zoey Steel Ordering Physician: [id number] MARIA ISABEL MERRITT Height: 71.00 in Sys BP: 106 SHANNAN cc: , Weight: 285.00 Thalia BP: 68 Reading Physician: [id number] DALTON Rhythm: Sinus rhythm NARVAEZ/ Electronically Signed by: Cory DALTON BSA: 2.45 m NARVAEZ on: 11/23/2019 Reason for Study: Heart murmur History: Conclusions: Moderate LV enlargement with LVH. Global systolic dysfunction with segmental features. LVEF 30% Elevated LV filling pressures RV is dilated with severe RV dysfunction Mild mitral annular calcification, mild thickening of the aortic valve without hemodynamically significant valvular disease There is a atrial level right to left shunt identified with saline contrast with free breathing and Valsalva most likely via PFO LVEF unchanged from to previous echo from 2017 Findings: 1. Quality: Technically fair study. Definity used to optimize study 2. Left Ventricle: Moderate LV enlargement. Mild LVH. Global systolic dysfunction with segmental features. Septal wall motion consistent with previous CABG, inferior akinesis. LVEF 30%. Elevated LV filling pressures. 3. Left Atrium: Normal size. 4. Right Ventricle: RV is dilated with severe RV dysfunction 5. Right Atrium: Normal size. 6. Aortic Valve: Trileaflet aortic valve. Mild leaflet thickening and focal calcification. No stenosis or insufficiency. 7. Mitral Valve: Mild mitral annular calcification, normal mitral valve morphology. No significant stenosis. Trivial insufficiency. 8. Tricuspid Valve: Normal tricuspid valve morphology. Trivial TR. No stenosis. RVSP estimated at 40 mmHg 9. Pulmonic Valve: Grossly normal. No significant stenosis or insufficiency on Doppler. 10. Aortic Root: Normal size and appearance of the aortic root. 11. Venous: Dilated with less than 50% compressibility with inspiration 12. Pericardium: No significant effusion identified. 13. Other: There is a right to left shunt identified with saline contrast with both free breathing and Valsalva most likely via PFO Patient Values (normal ranges in parenthesis) 2-D Doppler RVd 5.45 cm (< 4.2) LVOT Diam 2.3 cm IVSd 1.40 cm DIANA 2.72 cm AV Vmax 1.4 m/s LVd 5.60 cm (4.2 - 5.8 Male) AV mean grad. 4.0 mmHg (3.8 - 5.2 Female) AV peak grad. 7.6 mmHg LVPWd 1.21 cm LVs 4.66 cm (2.5 - 3.6 Male) AR Vena Contracta (2.2 - 3.5 Female) MV A Vmax 0.61 m/s Ao Root Diameter (< 3.7 Male) MVA 2.37 cm2 (<3.3 Female) Ao Root Diameter (< 3.7 Male) MV E Vmax 1.2 m/s (<3.3 Female) Ao Root d 2D 3.70 cm MV E/A ratio 1.9 LVEF 35 % (50 - 70) MV P1/2T LVFS 17 % (28 - 41) MR ERO LV mass index 128 g/m (< 115 Male) RVSP 39.4 mmHg (< 95 Female) RVFW S' RWT 0.43 (< .42) TR Vmax 2.47 m/s LVEF MOD 4C 31.8 % RA Pressure 15 mmHg LVEF MOD 2C 32.2 % LVEF Biplane 31.7 % (52 - 72 Male) PV Vmax 0.75 m/s (54 - 74 Female) LA Index (BP) 30.1 ml/m TAPSE LAESV [employer] NOTES: A bubble study was performed. Bubble crossover noted with and without valsalva. Definity (if used): 2ml Final IMPRESSION: Moderate LV enlargement with LVH. Global systolic dysfunction with segmental features. LVEF 30% [address] [address] [place] [address] ECHOCARDIOGRAPHY REPORT [facility] Name: DYLLAN HUERTAS Age: 59 years Date: 11/23/2019 Hospital #: [id number] : 1960 Room: [facility] Rec #: [id number] Sex: M Tech: Zoey Steel Ordering Physician: [id number] MARIA ISABEL MERRITT Height: 71.00 in Sys BP: 106 SHANNAN cc: , Weight: 285.00 Htalia BP: 68 Reading Physician: [id number] DALTON Rhythm: Sinus rhythm ZENON/ Electronically Signed by: [id number] DALTON BSA: 2.45 m ZENON on: 11/23/2019 Reason for Study: Heart murmur History: Conclusions: Moderate LV enlargement with LVH. Global systolic dysfunction with segmental features. LVEF 30% Elevated LV filling pressures RV is dilated with severe RV dysfunction Mild mitral annular calcification, mild thickening of the aortic valve without hemodynamically significant valvular disease There is a atrial level right to left shunt identified with saline contrast with free breathing and Valsalva most likely via PFO LVEF unchanged from to previous echo from 2017 Findings: 1. Quality: Technically fair study. Definity used to optimize study 2. Left Ventricle: Moderate LV enlargement. Mild LVH. Global systolic dysfunction with segmental features. Septal wall motion consistent with previous CABG, inferior akinesis. LVEF 30%. Elevated LV filling pressures. 3. Left Atrium: Normal size. 4. Right Ventricle: RV is dilated with severe RV dysfunction 5. Right Atrium: Normal size. 6. Aortic Valve: Trileaflet aortic valve. Mild leaflet thickening and focal calcification. No stenosis or insufficiency. 7. Mitral Valve: Mild mitral annular calcification, normal mitral valve morphology. No significant stenosis. Trivial insufficiency. 8. Tricuspid Valve: Normal tricuspid valve morphology. Trivial TR. No stenosis. RVSP estimated at 40 mmHg 9. Pulmonic Valve: Grossly normal. No significant stenosis or insufficiency on Doppler. 10. Aortic Root: Normal size and appearance of the aortic root. 11. Venous: Dilated with less than 50% compressibility with inspiration 12. Pericardium: No significant effusion identified. 13. Other: There is a right to left shunt identified with saline contrast with both free breathing and Valsalva most likely via PFO Patient Values (normal ranges in parenthesis) 2-D Doppler RVd 5.45 cm (< 4.2) LVOT Diam 2.3 cm IVSd 1.40 cm DIANA 2.72 cm AV Vmax 1.4 m/s LVd 5.60 cm (4.2 - 5.8 Male) AV mean grad. 4.0 mmHg (3.8 - 5.2 Female) AV peak grad. 7.6 mmHg LVPWd 1.21 cm LVs 4.66 cm (2.5 - 3.6 Male) AR Vena Contracta (2.2 - 3.5 Female) MV A Vmax 0.61 m/s Ao Root Diameter (< 3.7 Male) MVA 2.37 cm2 (<3.3 Female) Ao Root Diameter (< 3.7 Male) MV E Vmax 1.2 m/s (<3.3 Female) Ao Root d 2D 3.70 cm MV E/A ratio 1.9 LVEF 35 % (50 - 70) MV P1/2T LVFS 17 % (28 - 41) MR ERO LV mass index 128 g/m (< 115 Male) RVSP 39.4 mmHg (< 95 Female) RVFW S' RWT 0.43 (< .42) TR Vmax 2.47 m/s LVEF MOD 4C 31.8 % RA Pressure 15 mmHg LVEF MOD 2C 32.2 % LVEF Biplane 31.7 % (52 - 72 Male) PV Vmax 0.75 m/s (54 - 74 Female) LA Index (BP) 30.1 ml/m [employer] LAESV [employer] NOTES: A bubble study was performed. Bubble crossover noted with and without valsalva. Definity (if used): 2ml Final [facility] Magnesium Levelon 11-23-2019 Interpretation and review of laboratory results Normal [facility] Magnesium [Mass/Vol] 1.9 mg/dL 1.6 - 2 .4 mg/dL [facility] POC Glucoseon 11-23-2019 Glucose [Mass/Vol] 221 mg/dL High 65 - 99 mg/dL [facility] Interpretation and review of laboratory results Abnormal [facility] Glucose [Mass/Vol] 250 mg/dL High 65 - 99 mg/dL [facility] Interpretation and review of laboratory results Abnormal [facility] Glucose [Mass/Vol] 279 mg/dL High 65 - 99 mg/dL [facility] Interpretation and review of laboratory results Abnormal [facility] Glucose [Mass/Vol] 148 mg/dL High 65 - 99 mg/dL [facility] Interpretation and review of laboratory results Abnormal [facility] WOUND AEROBIC CULTUREon 11-05 Bacteria identified Aer cx Nom (Wound) Normal [place] After 48 Hours [facility] Microscopic observation Gram stain Nom (Wound) [facility] Gram stain Nom (Wound) No Organisms Seen [facility] Microscopic observation Gram stain Nom (Wound) Few WBC [facility] XR Chest 1 Viewon 11-23-2019 EXAMINATION: ONE-VIE W XR CHEST PA/AP, 11/23/2019 COMPARISON: Chest, 11/16/2019. 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 Right arm PICC li ne in place with tip in superior vena cava. 2. No acute pulmonary disease. 3. Cardiomegaly with evidence of prior open heart surgery. 4. No acute osseous abnormality. 66. [employer] Workstation ID: [id number] [facility] Interface, Rad In Fu ji Speechq - 11/23/2019 9:33 PM EST EXAMINATION: ONE-VIEW XR CHEST PA/AP, 11/23/2019 COMPARISON: Chest, 11/16/2019. HISTORY: Dx: E11.610 (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)) Injury/Trauma or Illness?:Illness/Other How long have you had these symptoms (acute/chronic)?:Acute Edema IMPRESSION: 1. Right arm PICC line in place with tip in superior vena cava. 2. No acute pulmonary disease. 3. Cardiomegaly with evidence of prior open heart surgery. 4. No acute osseous abnormality. 66. [employer] Workstation ID: [id number] [facility] Bone Aerobic Cultureon 11-22 Bacteria identified Aer cx Nom (Bone) Light Growth Enterobacter cloacae complex Abnormal [facility] Comment on above: See susceptibility f rom similar source/same date. Interpretation and review of laboratory results Abnormal [facility] Microscopic observation Gram stain Nom (Unsp spec) No Epithelial Cells Seen [facility] Microscopic observation Gram stain Nom (Unsp spec) No Organisms Seen [facility] Microscopic observation Gram stain Nom (Unsp spec) No WBC Seen [facility] Bone Anaerobic Cultureon Bacteria identified Anaer cx Nom (Unsp spec) No Anaerobic Growth at 2 Days [facility] CBC WITH AUTO DIFFERENTIALon 11-22-2019 Basophils (Bld) [#/Vol] 0.02 10*3/uL [facility] Basophils/100 WBC (Bld) 0.2 % [facility] Eosinophils (Bld) [#/Vol] 0.01 10*3/uL [facility] Eosinophils/100 WBC (Bld) 0.1 % [facility] Erythrocyte distribution width (RBC) [Entitic vol] 14.1 % 11.6 - 14.8 % [facility] Hematocrit (Bld) [Volume fraction] 35.9 % Low 41 - 53 % [facility] Hemoglobin (Bld) [Mass/Vol] 11.2 g/dL Low 13.5 - 17.5 g/dL [facility] Immature granulocytes (Bld) [#/Vol] 0.06 10*3/uL [facility] Immature granulocytes/100 WBC (Bld) 0.50 % [facility] Comment on above: The IG parameter is the percentage of metamyelocytes, myelocytes, and promyelocytes. Interpretation and review of laboratory results Abnormal [facility] Lymphocytes (Bld) [#/Vol] 0.41 10*3/uL Low [facility] Lymphocytes/100 WBC (Bld) 3.7 % [facility] MCH (RBC) [Entitic mass] 27.3 pg 26 - 34 pg [facility] MCHC (RBC) [Mass/Vol] 31.2 g/dL 31 - 37 g/dL [facility] MCV (RBC) [Entitic vol] 87.6 fL 80 - 100 fL [facility] Monocytes (Bld) [#/Vol] 1.42 10*3/uL High [facility] Monocytes/100 WBC (Bld) 12.7 % [facility] Neutrophils (Bld) [#/Vol] 9.27 10*3/uL High [facility] Neutrophils/100 WBC (Bld) 82.8 % [facility] Nucleated RBC (Bld) [#/Vol] 0.00 10*3/uL [facility] Nucleated RBC/100 WBC (Bld) [Ratio] 0.0 % [facility] Platelet mean volume (Bld) [Entitic vol] 10.8 fL 9 - 15.5 fL [facility] Platelets (Bld) [#/Vol] 155 10*3/uL [facility] RBC (Bld) [#/Vol] 4.10 10*6/uL Low [facility] WBC (Bld) [#/Vol] 11.19 10*3/uL High [facility] Chem 7on 11-22-2019 Anion gap [Moles/Vol] 6 mmol/L Low 10 - 2 0 mmol/L [facility] Chloride [Moles/Vol] 105 mmol/L 98 - 10 8 mmol/L [facility] Creatinine [Mass/Vol] 1.20 mg/dL 0.50 - 1.30 [facility] GFR/1.73 sq M predicted among non-blacks MDRD (S/P/Bld) [Vol rate/Area] The eGFR should be used for monitoring renal function only and not for medication dosing. [facility] GFR/1.73 sq M.predicted CKD-EPI (S/P/Bld) [Vol rate/Area] 67 >=60 mL/min/1.73 m2 [facility] Glucose [Mass/Vol] 180 mg/dL High 65 - 99 mg/dL [facility] HCO3 [Moles/Vol] 32 mmol/L 21 - 32 mmol/L [facility] Interpretation and review of laboratory results Abnormal [facility] Potassium [Moles/Vol] 4.2 mmol/L 3.5 - 5.1 mmol/L [facility] Sodium [Moles/Vol] 139 mmol/L 135 - 145 mmol/L [facility] Urea nitrogen [Mass/Vol] 25 mg/dL 8 - 25 mg/dL [facility] Urea nitrogen/Creatinine [Mass ratio] 20.8 mg/mg High [facility] Magnesium Levelon 11-22-2019 Interpretation and review of laboratory results Normal [facility] Magnesium [Mass/Vol] 1.6 mg/dL 1.6 - 2 .4 mg/dL [facility] POC Glucoseon 11-22-2019 Glucose [Mass/Vol] 210 mg/dL High 65 - 99 mg/dL [facility] Interpretation and review of laboratory results Abnormal [facility] Glucose [Mass/Vol] 271 mg/dL High 65 - 99 mg/dL [facility] Interpretation and review of laboratory results Abnormal [facility] Glucose [Mass/Vol] 264 mg/dL High 65 - 99 mg/dL [facility] Interpretation and review of laboratory results Abnormal [facility] TISSUE AEROBIC CULTUREon Bacteria identified Aer cx Nom (Tiss) Moderate Growth Enterobacter cloacae complex Abnormal [facility] Interpretation and review of laboratory results Abnormal [facility] Microscopic observation Gram stain Nom (Tiss) Positive [facility] Microscopic observation Gram stain Nom (Tiss) No WBC Seen [facility] Microscopic observation Gram stain Nom (Tiss) No Epithelial Cells Seen [facility] TISSUE ANAEROBIC CULTUREon 0 11-22-2019 Bacteria identified Anaer cx Nom (Tiss) No Anaerobic Growth at 2 Days [facility] Basic Metabolic Panelon 11-04 Anion gap [Moles/Vol] 12 mmol/L 10 - 2 0 mmol/L [facility] Calcium [Mass/Vol] 8.4 mg/dL 8.4 - 10. 2 mg/dL [facility] Chloride [Moles/Vol] 107 mmol/L 98 - 10 8 mmol/L [facility] Creatinine [Mass/Vol] 1.38 mg/dL High 0.50 - 1.30 [facility] GFR/1.73 sq M predicted among non-blacks MDRD (S/P/Bld) [Vol rate/Area] The eGFR should be used for monitoring renal function only and not for medication dosing. [facility] GFR/1.73 sq M.predicted CKD-EPI (S/P/Bld) [Vol rate/Area] 56 Low >=60 mL/min/1.73 m2 [facility] Glucose [Mass/Vol] 229 mg/dL High 65 - 99 mg/dL [facility] HCO3 [Moles/Vol] 25 mmol/L 21 - 32 mmol/L [facility] Interpretation and review of laboratory results Abnormal [facility] Potassium [Moles/Vol] 4.9 mmol/L 3.5 - 5.1 mmol/L [facility] Sodium [Moles/Vol] 139 mmol/L 135 - 145 mmol/L [facility] Urea nitrogen [Mass/Vol] 28 mg/dL High 8 - 25 mg/dL [facility] Urea nitrogen/Creatinine [Mass ratio] 20.3 mg/mg High [facility] CBC WITH AUTO DIFFERENTIALon 11-21-2019 Basophils (Bld) [#/Vol] 0.03 10*3/uL [facility] Basophils/100 WBC (Bld) 0.3 % [facility] Eosinophils (Bld) [#/Vol] 0.04 10*3/uL [facility] Eosinophils/100 WBC (Bld) 0.5 % [facility] Erythrocyte distribution width (RBC) [Entitic vol] 14.3 % 11.6 - 14.8 % [facility] Hematocrit (Bld) [Volume fraction] 36.9 % Low 41 - 53 % [facility] Hemoglobin (Bld) [Mass/Vol] 11.7 g/dL Low 13.5 - 17.5 g/dL [facility] Immature granulocytes (Bld) [#/Vol] 0.03 10*3/uL [facility] Immature granulocytes/100 WBC (Bld) 0.30 % [facility] Comment on above: The IG parameter is the percentage of metamyelocytes, myelocytes, and promyelocytes. Interpretation and review of laboratory results Abnormal [facility] Lymphocytes (Bld) [#/Vol] 0.53 10*3/uL Low [facility] Lymphocytes/100 WBC (Bld) 6.1 % [facility] MCH (RBC) [Entitic mass] 27.6 pg 26 - 34 pg [facility] MCHC (RBC) [Mass/Vol] 31.7 g/dL 31 - 37 g/dL [facility] MCV (RBC) [Entitic vol] 87.0 fL 80 - 100 fL [facility] Monocytes (Bld) [#/Vol] 1.27 10*3/uL High [facility] Monocytes/100 WBC (Bld) 14.5 % [facility] Neutrophils (Bld) [#/Vol] 6.83 10*3/uL [facility] Neutrophils/100 WBC (Bld) 78.3 % [facility] Nucleated RBC (Bld) [#/Vol] 0.00 10*3/uL [facility] Nucleated RBC/100 WBC (Bld) [Ratio] 0.0 % [facility] Platelet mean volume (Bld) [Entitic vol] 10.7 fL 9 - 15.5 fL [facility] Platelets (Bld) [#/Vol] 203 10*3/uL [facility] RBC (Bld) [#/Vol] 4.24 10*6/uL Low [facility] WBC (Bld) [#/Vol] 8.73 10*3/uL [facility] P[facility] Glucoseon 11-21-2019 Glucose [Mass/Vol] 258 mg/dL High 65 - 99 mg/dL [facility] Interpretation and review of laboratory results Abnormal [facility] Glucose [Mass/Vol] 303 mg/dL High 65 - 99 mg/dL [facility] Interpretation and review of laboratory results Abnormal [facility] Glucose [Mass/Vol] 380 mg/dL High 65 - 99 mg/dL [facility] Interpretation and review of laboratory results Abnormal [facility] Basic Metabolic Panelon 11-04 Anion gap [Moles/Vol] 10 mmol/L 10 - 2 0 mmol/L [facility] Calcium [Mass/Vol] 9.6 mg/dL 8.4 - 10. 2 mg/dL [facility] Chloride [Moles/Vol] 108 mmol/L 98 - 10 8 mmol/L [facility] Creatinine [Mass/Vol] 1.11 mg/dL 0.50 - 1.30 [facility] GFR/1.73 sq M predicted among non-blacks MDRD (S/P/Bld) [Vol rate/Area] The eGFR should be used for monitoring renal function only and not for medication dosing. [facility] GFR/1.73 sq M.predicted CKD-EPI (S/P/Bld) [Vol rate/Area] 73 >=60 mL/min/1.73 m2 [facility] Glucose [Mass/Vol] 119 mg/dL High 65 - 99 mg/dL [facility] HCO3 [Moles/Vol] 28 mmol/L 21 - 32 mmol/L [facility] Interpretation and review of laboratory results Abnormal [facility] Potassium [Moles/Vol] 4.4 mmol/L 3.5 - 5.1 mmol/L [facility] Sodium [Moles/Vol] 142 mmol/L 135 - 145 mmol/L [facility] Urea nitrogen [Mass/Vol] 24 mg/dL 8 - 25 mg/dL [facility] Urea nitrogen/Creatinine [Mass ratio] 21.6 mg/mg High [facility] POC Glucoseon 11-20-2019 Glucose [Mass/Vol] 208 mg/dL High 65 - 99 mg/dL [facility] Interpretation and review of laboratory results Abnormal [facility] Glucose [Mass/Vol] 180 mg/dL High 65 - 99 mg/dL [facility] Interpretation and review of laboratory results Abnormal [facility] Glucose [Mass/Vol] 128 mg/dL High 65 - 99 mg/dL [facility] Interpretation and review of laboratory results Abnormal [facility] PT/INRon 11-20-2019 INR Coag (PPP) [Relative time] 1.0 {INR} [facility] Interpretation and review of laboratory results Normal [facility] PT Coag (PPP) [Time] 12.7 s [facility] During the induction phase of oral anticoagulation, the INR may not reflect the anticoagulation status of the patient. Therapeutic ranges for INR's are: Most clinical situations: INR 2.0-3.0 Mechanical Prosthetic Valve: INR 2.5-3.5 Critical: INR >5.0 [facility] XR Foot Right 2 Viewson 11-04 Interface, Rad In Fu ji Speechq - 11/20/2019 10:37 PM EST EXAMINATION: XR FOOT RIGHT 2 VIEWS 11/20/2019 9:51 am HISTORY: ORDERING SYSTEM PROVIDED HISTORY: AP/OBL foot, TECHNOLOGIST PROVIDED HISTORY: Illness/Other Reason for exam: Pre. Surgical Testing Weightbearing views for Charcot foot Cancer History: u Surgery, RadiationHistory: u Encounter Type: Initial Additional signs and symptoms: un ORDERING SYSTEM PROVIDED DIAGNOSIS CODES: COMPARISON: Right foot radiograph dated 04/28/2019. FINDINGS: Two views of the right foot were obtained. There are advanced changes of Charcot arthropathy throughout the right midfoot which appears similar compared to prior examination. There are postsurgical changes of resection of the right 2nd toe proximal phalangeal head. IMPRESSION: 1. Advanced changes of Charcot arthropathy throughout the right midfoot which appear unchanged compared to prior examination. [employer] Workstation ID: [id number] [facility] 1. Advanced changes of Charcot arthropathy throughout the right midfoot which appear unchanged compared to prior examination. [employer] Workstation ID: [id number] [facility] EXAMINATION: XR FOOT RIGHT 2 VIEWS 11/20/2019 9:51 am HISTORY: ORDERING SYSTEM PROVIDED HISTORY: AP/OBL foot, TECHNOLOGIST PROVIDED HISTORY: Illness/Other Reason for exam: Pre. Surgical Testing Weightbearing views for Charcot foot Cancer History: u Surgery, RadiationHistory: u Encounter Type: Initial Additional signs and symptoms: un ORDERING SYSTEM PROVIDED DIAGNOSIS CODES: COMPARISON: Right foot radiograph dated 04/28/2019. FINDINGS: Two views of the right foot were obtained. There are advanced changes of Charcot arthropathy throughout the right midfoot which appears similar compared to prior examination. There are postsurgical changes of resection of the right 2nd toe proximal phalangeal head. [facility] XR OR Foot Rt 3+ Viewson EXAMINATION: XR OR FOOT RIGHT 3+ VIEWS HISTORY: ORDERING SYSTEM PROVIDED HISTORY: Rt. foot Charcot Correction, TECHNOLOGIST PROVIDED HISTORY: Illness/Other Reason for exam: RIGHT FOREFOOT RECONSTRUCTION Encounter Type: Initial Additional signs and symptoms: RIGHT FOOT PAIN Fluoro dose in mGy: 7.63 ORDERING SYSTEM PROVIDED DIAGNOSIS CODES: COMPARISON: 11/20/2019 TECHNIQUE: Fluoro Dose Ka,r mGy: Fluoro dose in Ka,r mGy: 7.63 Fluoroscopic time 5.2 minutes with 16 images saved [employer], [facility] - 11/20/2019 11:39 PM EST EXAMINATION: XR OR FOOT RIGHT 3+ VIEWS HISTORY: ORDERING SYSTEM PROVIDED HISTORY: Rt. foot Charcot Correction, TECHNOLOGIST PROVIDED HISTORY: Illness/Other Reason for exam: RIGHT FOREFOOT RECONSTRUCTION Encounter Type: Initial Additional signs and symptoms: RIGHT FOOT PAIN Fluoro dose in mGy: 7.63 ORDERING SYSTEM PROVIDED DIAGNOSIS CODES: COMPARISON: 11/20/2019 TECHNIQUE: Fluoro Dose Ka,r mGy: Fluoro dose in Ka,r mGy: 7.63 Fluoroscopic time 5.2 minutes with 16 images saved IMPRESSION: Intraoperative fluoroscopy for localization during right foot and ankle reconstruction and fixation. Please see operative report for details. Workstation ID: [id number] [facility] Intraoperative fluoroscopy for localization during right foot and ankle reconstruction and fixation. Please see operative report for details. Workstation ID: [id number] [facility] XR CHEST AP/PA AND LATon 1. No acute pulmonar y disease. 2. Cardiomegaly, with evidence of prior open heart surgery. 3. Multilevel degenerative changes of the thoracic spine. [employer] Workstation ID: [id number] [facility] EXAMINATION: TWO-VIE W XR CHEST AP/PA AND LAT, 11/16/2019 COMPARISON: Chest, 03/29/2017. HISTORY: Dx: Z01.818 (Other specified pre-operative examination) Injury/Trauma or Illness?:Illness/Other How long have you had these symptoms (acute/chronic)?:Chron ic Other specified pre-operative examination [facility] Applauze, Rad In [facility] - 11/16/2019 5:00 PM EST EXAMINATION: TWO-VIEW XR CHEST AP/PA AND LAT, 11/16/2019 COMPARISON: Chest, 03/29/2017. HISTORY: Dx: Z01.818 (Other specified pre-operative examination) Injury/Trauma or Illness?:Illness/Other How long have you had these symptoms (acute/chronic)?:Chron ic Other specified pre-operative examination IMPRESSION: 1. No acute pulmonary disease. 2. Cardiomegaly, with evidence of prior open heart surgery. 3. Multilevel degenerative changes of the thoracic spine. [employer] Workstation ID: [id number] [facility] CBCon 11-10-2019 Erythrocyte distribution width (RBC) [Entitic vol] 14.0 % 11.6 - 14.8 % [facility] Hematocrit (Bld) [Volume fraction] 39.2 % Low 41 - 53 % [facility] Hemoglobin (Bld) [Mass/Vol] 12.1 g/dL Low 13.5 - 17.5 g/dL [facility] Interpretation and review of laboratory results Abnormal [facility] MCH (RBC) [Entitic mass] 27.3 pg 26 - 34 pg [facility] MCHC (RBC) [Mass/Vol] 30.9 g/dL Low 31 - 37 g/dL [facility] MCV (RBC) [Entitic vol] 88.3 fL 80 - 100 fL [facility] Nucleated RBC (Bld) [#/Vol] 0.05 10*3/uL High [facility] Nucleated RBC/100 WBC (Bld) [Ratio] 0.9 % [facility] Platelet mean volume (Bld) [Entitic vol] 10.6 fL 9 - 15.5 fL [facility] Platelets (Bld) [#/Vol] 234 10*3/uL [facility] RBC (Bld) [#/Vol] 4.44 10*6/uL Low [facility] WBC (Bld) [#/Vol] 5.65 10*3/uL [facility] Comprehensive Metabolic Pane mervin 11-10-2019 Albumin [Mass/Vol] 3.1 g/dL Low 3.2 - 5.2 g/dL [facility] ALP [Catalytic activity/Vol] 80 U/L 40 - 150 U/L [facility] ALT [Catalytic activity/Vol] 44 U/L 14 - 65 U/L [facility] Anion gap [Moles/Vol] 11 mmol/L 10 - 2 0 mmol/L [facility] AST [Catalytic activity/Vol] 24 U/L 0 - 45 U/L [facility] Bilirubin [Mass/Vol] 0.5 mg/dL 0 - 1.3 mg/dL [facility] Calcium [Mass/Vol] 8.6 mg/dL 8.4 - 10. 2 mg/dL [facility] Chloride [Moles/Vol] 110 mmol/L High 98 - 10 8 mmol/L [facility] Creatinine [Mass/Vol] 1.18 mg/dL 0.50 - 1.30 [facility] GFR/1.73 sq M predicted among non-blacks MDRD (S/P/Bld) [Vol rate/Area] The eGFR should be used for monitoring renal function only and not for medication dosing. [facility] GFR/1.73 sq M.predicted CKD-EPI (S/P/Bld) [Vol rate/Area] 68 >=60 mL/min/1.73 m2 [facility] Glucose [Mass/Vol] 114 mg/dL High 65 - 99 mg/dL [facility] HCO3 [Moles/Vol] 27 mmol/L 21 - 32 mmol/L [facility] Interpretation and review of laboratory results Abnormal [facility] Potassium [Moles/Vol] 4.7 mmol/L 3.5 - 5.1 mmol/L [facility] Protein [Mass/Vol] 7.2 g/dL 6 - 8 g/dL [facility] Sodium [Moles/Vol] 143 mmol/L 135 - 145 mmol/L [facility] Urea nitrogen [Mass/Vol] 27 mg/dL High 8 - 25 mg/dL [facility] Urea nitrogen/Creatinine [Mass ratio] 22.9 mg/mg High [facility] DEBRIDEMENTon 11-10-2019 Darrin Webber PM 11/10/2019 3:06 PM Wound Care Debridement Timeout: Verbal Consent obtained?: Yes Written Consent obtained?: Yes Consent given by: Patient Immediately prior to procedure a time out was called to verify the correct patient, procedure, equipment, support service tech and site/side marked as required Debridement Procedure: Debridement Performed for Assessment: Right foot ulcer Performed by: Physician Debridement Type: Surgical Pain Control: N/A Level: Skin/Subcutaneous Tissue Post Debridement Measurements: Length (cm): 2 Width (cm): 1.8 Depth (cm): 0.2 Area (sq cm): 3.6 Volume (cm3): 0.72 Percent Debrided: 100 Total Area Debrided (sq cm): 3.6 Tissue and other material debrided: Subcutaneous Devitalized tissue debrided: Biofilm, Slough and Fibrin Instrument: Curette Bleeding: Minimal Hemostasis Achieved: Pressure and Silver Nitrate Procedural Pain: Insensate Post Procedural Pain: Insensate Response to Treatment: Procedure was tolerated well [facility] Magnesium Levelon 11-10-2019 Interpretation and review of laboratory results Normal [facility] Magnesium [Mass/Vol] 1.8 mg/dL 1.6 - 2 .4 mg/dL [facility] PT/INRon 11-10-2019 INR Coag (PPP) [Relative time] 1.1 {INR} [facility] Interpretation and review of laboratory results Normal [facility] PT Coag (PPP) [Time] 14.2 s [facility] During the induction phase of oral anticoagulation, the INR may not reflect the anticoagulation status of the patient. Therapeutic ranges for INR's are: Most clinical situations: INR 2.0-3.0 Mechanical Prosthetic Valve: INR 2.5-3.5 Critical: INR >5.0 [facility] DEBRIDEMENTon 10-24-2019 Darrin Webber 10/24/2019 11:16 PM Wound Care Debridement Timeout: Verbal Consent obtained?: Yes Written Consent obtained?: Yes Consent given by: Patient Immediately prior to procedure a time out was called to verify the correct patient, procedure, equipment, support service tech and site/side marked as required Debridement Procedure: Debridement Performed for Assessment: Right foot Performed by: Physician Debridement Type: Surgical Pain Control: N/A Level: Skin/Subcutaneous Tissue Post Debridement Measurements: Length (cm): 0.5 Width (cm): 0.5 Depth (cm): 0.2 Area (sq cm): 0.25 Volume (cm3): 0.05 Percent Debrided: 100 Total Area Debrided (sq cm): 0.25 Tissue and other material debrided: Subcutaneous Devitalized tissue debrided: Biofilm, Slough and Callus Instrument: Curette Bleeding: Minimal Hemostasis Achieved: Pressure Procedural Pain: Insensate Post Procedural Pain: Insensate Response to Treatment: Procedure was tolerated well [facility] Darrin Webber 10/24/2019 11:16 PM Wound Care Debridement Timeout: Verbal Consent obtained?: Yes Written Consent obtained?: Yes Consent given by: Patient Immediately prior to procedure a time out was called to verify the correct patient, procedure, equipment, support service tech and site/side marked as required Debridement Procedure: Debridement Performed for Assessment: Left anterior leg Performed by: Physician Debridement Type: Surgical Pain Control: N/A Level: Skin/Subcutaneous Tissue Post Debridement Measurements: Length (cm): 2 Width (cm): 0.7 Depth (cm): 0.2 Area (sq cm): 1.4 Volume (cm3): 0.28 Percent Debrided: 100 Total Area Debrided (sq cm): 1.4 Tissue and other material debrided: Subcutaneous Devitalized tissue debrided: Biofilm and Slough Instrument: Curette Bleeding: Minimal Hemostasis Achieved: Pressure Procedural Pain: Insensate Post Procedural Pain: Insensate Response to Treatment: Procedure was tolerated well [facility] DEBRIDEMENT 10-10-2019 Darrin Webber 10/10/2019 11:35 PM Wound Care Debridement Timeout: Verbal Consent obtained?: Yes Written Consent obtained?: Yes Consent given by: Patient Immediately prior to procedure a time out was called to verify the correct patient, procedure, equipment, support service tech and site/side marked as required Debridement Procedure: Performed by: Physician Debridement Type: Surgical Pain Control: N/A Level: Skin/Subcutaneous Tissue Post Debridement Measurements: Length (cm): 0.5 Width (cm): 0.5 Depth (cm): 0.2 Area (sq cm): 0.25 Volume (cm3): 0.05 Percent Debrided: 100 Total Area Debrided (sq cm): 0.25 Tissue and other material debrided: Subcutaneous Devitalized tissue debrided: Biofilm Instrument: Curette Bleeding: Minimal Hemostasis Achieved: Pressure Procedural Pain: Insensate Post Procedural Pain: Insensate Response to Treatment: Procedure was tolerated well [facility] 10-04-2019 Darrin Webber 10/04/2019 10:22 PM Wound Care Debridement Timeout: Verbal Consent obtained?: Yes Written Consent obtained?: Yes Immediately prior to procedure a time out was called to verify the correct patient, procedure, equipment, support service tech and site/side marked as required Debridement Procedure: Debridement Performed for Assessment: Right plantar foot Performed by: Physician Debridement Type: Surgical Pain Control: N/A Level: Skin/Subcutaneous Tissue Post Debridement Measurements: Length (cm): 0.5 Width (cm): 0.5 Depth (cm): 0.2 Area (sq cm): 0.25 Volume (cm3): 0.05 Percent Debrided: 100 Total Area Debrided (sq cm): 0.25 Devitalized tissue debrided: Biofilm, Callus and Slough Instrument: Curette Bleeding: Minimal Hemostasis Achieved: Pressure Procedural Pain: Insensate Post Procedural Pain: Insensate Response to Treatment: Procedure was tolerated well [facility] Darrin Webber 10/04/2019 10:22 PM Wound Care Debridement Timeout: Verbal Consent obtained?: Yes Written Consent obtained?: Yes Consent given by: Patient Immediately prior to procedure a time out was called to verify the correct patient, procedure, equipment, support service tech and site/side marked as required Debridement Procedure: Debridement Performed for Assessment: Left leg Performed by: Physician Debridement Type: Surgical Pain Control: N/A Level: Skin/Subcutaneous Tissue Post Debridement Measurements: Length (cm): 7 Width (cm): 3 Depth (cm): 0.2 Area (sq cm): 21 Volume (cm3): 4.2 Percent Debrided: 100 Total Area Debrided (sq cm): 21 Tissue and other material debrided: Subcutaneous Devitalized tissue debrided: Slough, Biofilm and Callus Instrument: Curette Bleeding: Minimal Hemostasis Achieved: Pressure Procedural Pain: Insensate Post Procedural Pain: Insensate Response to Treatment: Procedure was tolerated well [facility] 09-19-2019 Darrin Webber PM 09/19/2019 3:57 PM Wound Care Debridement Timeout: Verbal Consent obtained?: Yes Written Consent obtained?: Yes Consent given by: Patient Immediately prior to procedure a time out was called to verify the correct patient, procedure, equipment, support service tech and site/side marked as required Debridement Procedure: Debridement Performed for Assessment: Right foot Performed by: Physician Debridement Type: Surgical Pain Control: N/A Level: Skin/Subcutaneous Tissue Post Debridement Measurements: Length (cm): 0.5 Width (cm): 0.5 Depth (cm): 0.2 Area (sq cm): 0.2 Volume (cm3): 0.04 Percent Debrided: 100 Total Area Debrided (sq cm): 0.2 Tissue and other material debrided: Subcutaneous Devitalized tissue debrided: Biofilm, Fibrin and Slough Instrument: Curette Bleeding: Minimal Hemostasis Achieved: Pressure Procedural Pain: Insensate Post Procedural Pain: Insensate Response to Treatment: Procedure was tolerated well [facility] Unna Boot Compression Dressi [facility] 09-19-2019 Lin Gutiérrez RN 09/19/2019 3:57 PM Multi-layer Compression Wrap Procedure Performed for: LLE Performed by:: Clinician MIKAELA Procedural Pain: 0 Bandage Type: Compression Compression Layers: Multi-layer Compression Product Type: Unna boot Dressing Applied: No Extremity Location: Below Knee [facility] DEBRIDEMENTon 09-12-2019 Darrin Webber 09/12/2019 11:37 PM Wound Care Debridement Timeout: Verbal Consent obtained?: Yes Written Consent obtained?: Yes Consent given by: Patient Immediately prior to procedure a time out was called to verify the correct patient, procedure, equipment, support service tech and site/side marked as required Debridement Procedure: Debridement Performed for Assessment: Right foot Performed by: Physician Debridement Type: Surgical Pain Control: N/A Level: Skin/Subcutaneous Tissue Post Debridement Measurements: Length (cm): 0.8 Width (cm): 0.5 Depth (cm): 0.2 Area (sq cm): 0.4 Volume (cm3): 0.08 Percent Debrided: 100 Total Area Debrided (sq cm): 0.4 Tissue and other material debrided: Subcutaneous Devitalized tissue debrided: Biofilm, Slough and Callus Instrument: Curette Bleeding: Minimal Hemostasis Achieved: Pressure Procedural Pain: Insensate Post Procedural Pain: Insensate Response to Treatment: Procedure was tolerated well [facility] 08-30-2019 Darrin Webber 08/30/2019 12:11 PM Wound Care Debridement Timeout: Verbal Consent obtained?: Yes Written Consent obtained?: Yes Consent given by: Patient Immediately prior to procedure a time out was called to verify the correct patient, procedure, equipment, support service tech and site/side marked as required Debridement Procedure: Debridement Performed for Assessment: Right plantar foot ulcer Performed by: Physician Debridement Type: Surgical Pain Control: N/A Level: Skin/Subcutaneous Tissue Post Debridement Measurements: Length (cm): 0.5 Width (cm): 0.5 Depth (cm): 0.2 Area (sq cm): 0.25 Volume (cm3): 0.05 Percent Debrided: 100 Total Area Debrided (sq cm): 0.25 Tissue and other material debrided: Subcutaneous Devitalized tissue debrided: Biofilm and Slough Instrument: Curette Bleeding: Minimal Hemostasis Achieved: Pressure Procedural Pain: Insensate Post Procedural Pain: Insensate Response to Treatment: Procedure was tolerated well [facility] DEBRIDEMENT 08-24-2019 Darrin Webber 08/24/2019 10:25 PM Wound Care Debridement Timeout: Verbal Consent obtained?: Yes Written Consent obtained?: Yes Consent given by: Patient Immediately prior to procedure a time out was called to verify the correct patient, procedure, equipment, support service tech and site/side marked as required Debridement Procedure: Debridement Performed for Assessment: Right foot Performed by: Physician Debridement Type: Surgical Pain Control: N/A Level: Skin/Subcutaneous Tissue Post Debridement Measurements: Length (cm): 1.5 Width (cm): 1 Depth (cm): 0.3 Area (sq cm): 1.5 Volume (cm3): 0.45 Percent Debrided: 100 Total Area Debrided (sq cm): 1.5 Tissue and other material debrided: Subcutaneous Devitalized tissue debrided: Biofilm, Slough and Fibrin Instrument: Curette Bleeding: Minimal Hemostasis Achieved: Pressure Procedural Pain: Insensate Post Procedural Pain: Insensate Response to Treatment: Procedure was tolerated well [facility] DEBRIDEMENT 08-10-2019 Darrin Webber 08/10/2019 11:56 PM Wound Care Debridement Timeout: Verbal Consent obtained?: Yes Written Consent obtained?: Yes Consent given by: Patient Immediately prior to procedure a time out was called to verify the correct patient, procedure, equipment, support service tech and site/side marked as required Debridement Procedure: Debridement Performed for Assessment: Right foot ulcer Performed by: Physician Debridement Type: Surgical Pain Control: N/A Level: Skin/Subcutaneous Tissue Post Debridement Measurements: Length (cm): 1.5 Width (cm): 1 Depth (cm): 0.2 Area (sq cm): 1.5 Volume (cm3): 0.3 Percent Debrided: 100 Total Area Debrided (sq cm): 1.5 Tissue and other material debrided: Subcutaneous Devitalized tissue debrided: Slough, Exudate and Biofilm Instrument: Curette Bleeding: Minimal Hemostasis Achieved: Pressure Procedural Pain: Insensate Post Procedural Pain: Insensate Response to Treatment: Procedure was tolerated well [facility] DEBRIDEMENT 07-27-2019 Darrin Webber PM 07/27/2019 11:46 PM Wound Care Debridement Timeout: Verbal Consent obtained?: Yes Written Consent obtained?: Yes Consent given by: Patient Immediately prior to procedure a time out was called to verify the correct patient, procedure, equipment, support service tech and site/side marked as required Debridement Procedure: Debridement Performed for Assessment: Right foot ulcer Performed by: Physician Debridement Type: Surgical Pain Control: N/A Level: Skin/Subcutaneous Tissue Post Debridement Measurements: Length (cm): 1 Width (cm): 0.8 Depth (cm): 0.2 Area (sq cm): 0.8 Volume (cm3): 0.16 Percent Debrided: 100 Total Area Debrided (sq cm): 0.8 Tissue and other material debrided: Subcutaneous Devitalized tissue debrided: Biofilm Instrument: Curette Bleeding: Minimal Hemostasis Achieved: Pressure Procedural Pain: Insensate Post Procedural Pain: Insensate Response to Treatment: Procedure was tolerated well [facility] 07-14-2019 Darrin Webber 07/14/2019 9:00 PM Wound Care Debridement Timeout: Verbal Consent obtained?: Yes Written Consent obtained?: Yes Consent given by: Patient Immediately prior to procedure a time out was called to verify the correct patient, procedure, equipment, support service tech and site/side marked as required Debridement Procedure: Debridement Performed for Assessment: Right plantar foot wound Performed by: Physician Debridement Type: Surgical Level: Skin/Subcutaneous Tissue Post Debridement Measurements: Length (cm): 1 Width (cm): 0.8 Depth (cm): 0.2 Area (sq cm): 0.8 Volume (cm3): 0.16 Percent Debrided: 100 Total Area Debrided (sq cm): 0.8 Tissue and other material debrided: Subcutaneous Devitalized tissue debrided: Biofilm and Callus Instrument: Curette Bleeding: Minimal Hemostasis Achieved: Pressure Procedural Pain: Insensate Post Procedural Pain: Insensate Response to Treatment: Procedure was tolerated well [facility] 06-13-2019 Darrin Webber 06/14/2019 6:46 AM Wound Care Debridement Timeout: Verbal Consent obtained?: Yes Written Consent obtained?: Yes Consent given by: Patient Immediately prior to procedure a time out was called to verify the correct patient, procedure, equipment, support service tech and site/side marked as required Debridement Procedure: Debridement Performed for Assessment: Right plantar foot Performed by: Physician Debridement Type: Surgical Pain Control: N/A Level: Skin/Subcutaneous Tissue Post Debridement Measurements: Length (cm): 1.8 Width (cm): 1.8 Depth (cm): 0.2 Area (sq cm): 3.24 Volume (cm3): 0.65 Percent Debrided: 100 Total Area Debrided (sq cm): 3.24 Tissue and other material debrided: Subcutaneous Devitalized tissue debrided: Biofilm, Slough and Exudate Instrument: Nippers Bleeding: Moderate Hemostasis Achieved: Pressure Procedural Pain: Insensate Post Procedural Pain: Insensate Response to Treatment: Procedure was tolerated well [facility] 05-31-2019 Darrin Webber PM 05/31/2019 5:52 AM Wound Care Debridement Timeout: Verbal Consent obtained?: Yes Written Consent obtained?: Yes Consent given by: Patient Immediately prior to procedure a time out was called to verify the correct patient, procedure, equipment, support service tech and site/side marked as required Timeout performed: 05/30/2019 5:48 AM Debridement Procedure: Debridement Performed for Assessment: Right foot ulcer Performed by: Physician Debridement Type: Surgical Pain Control: N/A Level: Skin/Subcutaneous Tissue Post Debridement Measurements: Length (cm): 2 Width (cm): 2 Depth (cm): 0.3 Area (sq cm): 4 Volume (cm3): 1.2 Percent Debrided: 100 Total Area Debrided (sq cm): 4 Tissue and other material debrided: Subcutaneous Devitalized tissue debrided: Biofilm Instrument: Curette Bleeding: Minimal Hemostasis Achieved: Pressure Procedural Pain: Insensate Post Procedural Pain: Insensate Response to Treatment: Procedure was tolerated well [facility] 05-19-2019 Darrin Webber 05/20/2019 10:26 AM Wound Care Debridement Timeout: Verbal Consent obtained?: Yes Written Consent obtained?: Yes Consent given by: Patient Immediately prior to procedure a time out was called to verify the correct patient, procedure, equipment, support service tech and site/side marked as required Timeout performed: 05/19/2019 1:15 PM Debridement Procedure: Debridement Performed for Assessment: Right plantar wound Performed by: Physician Debridement Type: Surgical Pain Control: N/A Level: Skin/Subcutaneous Tissue Post Debridement Measurements: Length (cm): 2 Width (cm): 1.5 Depth (cm): 0.1 Area (sq cm): 3 Volume (cm3): 0.3 Percent Debrided: 100 Total Area Debrided (sq cm): 3 Tissue and other material debrided: Subcutaneous Devitalized tissue debrided: Slough and Biofilm Instrument: Curette Bleeding: Moderate Hemostasis Achieved: Pressure Procedural Pain: Insensate Post Procedural Pain: Insensate Response to Treatment: Procedure was tolerated well [facility] DEBRIDEMENTon 05-05-2019 Darrin Webber PM 05/05/2019 6:04 PM Wound Care Debridement Timeout: Verbal Consent obtained?: Yes Written Consent obtained?: Yes Consent given by: Patient Immediately prior to procedure a time out was called to verify the correct patient, procedure, equipment, support service tech and site/side marked as required Debridement Procedure: Performed by: Physician Debridement Type: Surgical Pain Control: N/A Level: Skin/Subcutaneous Tissue Post Debridement Measurements: Length (cm): 2 Width (cm): 1.8 Depth (cm): 0.2 Area (sq cm): 3.6 Volume (cm3): 0.72 Percent Debrided: 100 Total Area Debrided (sq cm): 3.6 Tissue and other material debrided: Subcutaneous Devitalized tissue debrided: Slough and Biofilm Instrument: Curette and Nippers Bleeding: Minimal Hemostasis Achieved: Pressure Procedural Pain: Insensate Post Procedural Pain: Insensate Response to Treatment: Procedure was tolerated well [facility] Otheron 04-28-2019 1. Soft tissue irregularity involving the plantar aspect of the foot likely representing the reported ulcer. No bony destruction to suggest osteomyelitis. 2. No evidence of radiopaque foreign body. 3. Stable deformity and degenerative changes involving the midfoot. Findings are consistent with Charcot joint. 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 Postsurgical changes involving the distal aspect of the proximal phalanx of the 2nd digit is noted. No acute fractures identified. Advanced deformity and degenerative changes are again seen involving the midfoot. There has been no significant change. Dystrophic calcifications are seen along the plantar aspect of the foot. No radiopaque foreign bodies. Moderate soft tissue edema is persistent. There is soft tissue irregularity involving the plantar aspect of the foot likely representing the reported ulcer. [facility], Rad In Fu ji Speechq - 04/28/2019 3:06 PM EDT EXAMINATION: XR FOOT RIGHT 3+ VIEWS (STANDARD) HISTORY: ORDERING SYSTEM PROVIDED HISTORY: right foot charcot and ulceration in wound care, TECHNOLOGIST PROVIDED HISTORY: Illness/Other Reason for exam: rt foot pain Cancer History: u Surgery, RadiationHistory: u Encounter Type: Initial Additional signs and symptoms: large ulcer on plantar side of foot ORDERING SYSTEM PROVIDED DIAGNOSIS CODES: E11.610 Diabetes mellitus with Charcot's joint arthropathy ([facility]) L97.512 Foot ulcer with fat layer exposed, right ([facility]) COMPARISON: Right foot x-ray dated 03/31/2019 FINDINGS: Three views of the right foot were obtained. Postsurgical changes involving the distal aspect of the proximal phalanx of the 2nd digit is noted. No acute fractures identified. Advanced deformity and degenerative changes are again seen involving the midfoot. There has been no significant change. Dystrophic calcifications are seen along the plantar aspect of the foot. No radiopaque foreign bodies. Moderate soft tissue edema is persistent. There is soft tissue irregularity involving the plantar aspect of the foot likely representing the reported ulcer. IMPRESSION: 1. Soft tissue irregularity involving the plantar aspect of the foot likely representing the reported ulcer. No bony destruction to suggest osteomyelitis. 2. No evidence of radiopaque foreign body. 3. Stable deformity and degenerative changes involving the midfoot. Findings are consistent with Charcot joint. Workstation ID: [id number] [facility] DEBRIDEMENTon 04-21-2019 Nupur Davis DPM 04/21/2019 2:17 PM Wound Care Debridement Timeout: Verbal Consent obtained?: Yes Written Consent obtained?: No Consent given by: Patient Immediately prior to procedure a time out was called to verify the correct patient, procedure, equipment, support service tech and site/side marked as required Timeout performed: 04/21/2019 2:16 PM Debridement Procedure: Debridement Performed for Assessment: Remove devitalized tissue Performed by: Physician Debridement Type: Surgical Pain Control: N/A Level: Skin/Subcutaneous Tissue Pre-Debridement Values: Length (cm): 1.5 Width (cm): 1.6 Depth (cm): 0.1 Area (sq cm): 2.4 Volume (cm3): 0.24 Post Debridement Measurements: Length (cm): 1.5 Width (cm): 1.6 Depth (cm): 0.1 Area (sq cm): 2.4 Volume (cm3): 0.24 Percent Debrided: 100 Total Area Debrided (sq cm): 2.4 Tissue and other material debrided: Subcutaneous Devitalized tissue debrided: Fibrin and Biofilm Instrument: Curette Bleeding: Minimal Hemostasis Achieved: Pressure Procedural Pain: Insensate Post Procedural Pain: Insensate Response to Treatment: Procedure was tolerated wellAssociated Wounds: Incision 01/25/19 Foot Right [facility] DEBRIDEMENTon 04-14-2019 Nupur Davis, KAYM 04/14/2019 4:05 PM Wound Care Debridement Timeout: Verbal Consent obtained?: Yes Written Consent obtained?: No Consent given by: Patient Immediately prior to procedure a time out was called to verify the correct patient, procedure, equipment, support service tech and site/side marked as required Timeout performed: 04/14/2019 4:04 PM Debridement Procedure: Debridement Performed for Assessment: Remove devitalized tissue Performed by: Physician Debridement Type: Surgical Pain Control: N/A Level: Skin/Subcutaneous Tissue Pre-Debridement Values: Length (cm): 1.2 Width (cm): 1 Depth (cm): 0.2 Area (sq cm): 1.2 Volume (cm3): 0.24 Post Debridement Measurements: Length (cm): 1.2 Width (cm): 1 Depth (cm): 0.2 Area (sq cm): 1.2 Volume (cm3): 0.24 Percent Debrided: 100 Total Area Debrided (sq cm): 1.2 Tissue and other material debrided: Subcutaneous Devitalized tissue debrided: Slough and Fibrin Instrument: Curette Bleeding: Minimal Hemostasis Achieved: Pressure Procedural Pain: Insensate Post Procedural Pain: Insensate Response to Treatment: Procedure was tolerated wellAssociated Wounds: Wound (Outpatient Only) 03/31/19 Foot Anterior;Right;Plantar [facility] DEBRIDEMENTon 04-07-2019 Nupur Davis, KAYM 04/07/2019 3:27 PM Wound Care Debridement Timeout: Immediately prior to procedure a time out was called to verify the correct patient, procedure, equipment, support service tech and site/side marked as required Timeout performed: 04/07/2019 3:26 PM Debridement Procedure: Debridement Performed for Assessment: Remove devitalized tissue Performed by: Physician Debridement Type: Surgical Pain Control: N/A Level: Skin/Subcutaneous Tissue Pre-Debridement Values: Length (cm): 1.4 Width (cm): 1 Depth (cm): 0.3 Area (sq cm): 1.4 Volume (cm3): 0.42 Post Debridement Measurements: Length (cm): 1.4 Width (cm): 1 Depth (cm): 0.3 Area (sq cm): 1.4 Volume (cm3): 0.42 Percent Debrided: 100 Total Area Debrided (sq cm): 1.4 Tissue and other material debrided: Subcutaneous Devitalized tissue debrided: Slough and Fibrin Instrument: Curette Bleeding: Minimal Hemostasis Achieved: Pressure Procedural Pain: Insensate Post Procedural Pain: Insensate Response to Treatment: Procedure was tolerated wellAssociated Wounds: Wound (Outpatient Only) 03/31/19 Foot Anterior;Right;Plantar [facility] XR FOOT RIGHT 3+ VIEWS (CONY NADIRA)on 03-31-2019 1. Charcot foot with advanced deformity of the mid aspect of the right foot. 2. No obvious acute fracture is noted. [id number] soft tissue swelling and other degenerative changes noted. Workstation ID: [id number] [facility] EXAMINATION: XR FOOT RIGHT 3+ VIEWS (STANDARD) HISTORY: ORDERING SYSTEM PROVIDED HISTORY: wound care room room 4, TECHNOLOGIST PROVIDED HISTORY: Illness/Other Reason for exam: charcot foot Cancer History: u Surgery, Radiation history: u Encounter Type: Ongoing Additional signs and symptoms: na ORDERING SYSTEM PROVIDED DIAGNOSIS CODES: L97.512 Foot ulcer with fat layer exposed, right (HCC) COMPARISON: MRI of the right foot from 01/24/2019. FINDINGS: Three views were done of the right foot. Moderate soft tissue swelling is noted. No fracture or intrinsic bony lesion is noted. Bone density is normal. Large dorsal and plantar calcaneal spurs are noted. Advanced degenerative changes are noted of the midfoot. There appears to be almost complete erosion of many of the tarsal bones. Prominent degenerative changes are noted of the surrounding regions especially at the metatarsal/tarsal interfaces. Dystrophic calcifications are noted along the mid and plantar aspect of the foot. No foreign bodies are noted. Limited views of the ankle are unremarkable. There appears to have been resection of the distal aspect of the proximal phalanx of the right 2nd toe. [facility] Interface, Rad In Fu ji Speechq - 03/31/2019 5:35 PM EDT EXAMINATION: XR FOOT RIGHT 3+ VIEWS (STANDARD) HISTORY: ORDERING SYSTEM PROVIDED HISTORY: wound care room room 4, TECHNOLOGIST PROVIDED HISTORY: Illness/Other Reason for exam: charcot foot Cancer History: u Surgery, Radiation history: u Encounter Type: Ongoing Additional signs and symptoms: na ORDERING SYSTEM PROVIDED DIAGNOSIS CODES: L97.512 Foot ulcer with fat layer exposed, right ([facility]) COMPARISON: MRI of the right foot from 01/24/2019. FINDINGS: Three views were done of the right foot. Moderate soft tissue swelling is noted. No fracture or intrinsic bony lesion is noted. Bone density is normal. Large dorsal and plantar calcaneal spurs are noted. Advanced degenerative changes are noted of the midfoot. There appears to be almost complete erosion of many of the tarsal bones. Prominent degenerative changes are noted of the surrounding regions especially at the metatarsal/tarsal interfaces. Dystrophic calcifications are noted along the mid and plantar aspect of the foot. No foreign bodies are noted. Limited views of the ankle are unremarkable. There appears to have been resection of the distal aspect of the proximal phalanx of the right 2nd toe. IMPRESSION: 1. Charcot foot with advanced deformity of the mid aspect of the right foot. 2. No obvious acute fracture is noted. [id number] soft tissue swelling and other degenerative changes noted. Workstation ID: [id number] [facility] SCAN OTHER ORDERSon 01-26-20 19 Ordered by an unspecified provider. [facility] MR Foot Right Without Contra ston 01-24-2019 This examination is very difficult to interpret due to severe motion artifact throughout the study. There is a hammertoe deformity of the 2nd toe. There is no obvious osteomyelitis in the visualized forefoot understanding severe limitations due to motion. However, osteomyelitis would be difficult to exclude on this examination due to poor quality. 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 /meenu Workstation ID: [id number] [facility] EXAMINATION: MR FOOT RIGHT WITHOUT CONTRAST HISTORY: ORDERING SYSTEM PROVIDED HISTORY: Right foot ulcer, limited to breakdown of skin ([facility]), TECHNOLOGIST PROVIDED HISTORY: Reason for exam: possible 2nd toe osteomyelitis. redness. 2 weeks ago patient lost nail on 2nd toe last week developed infection Illness/Other Encounter Type: Initial Additional signs and symptoms: hammer toe surgery on rt 2nd toe scheduled for this week ORDERING SYSTEM PROVIDED DIAGNOSIS CODES: L97.511 Right foot ulcer, limited to breakdown of skin (HCC) M86.471 Chronic osteomyelitis with draining sinus, right ankle and foot (HCC) M20.41 Acquired hammer toe of right foot COMPARISON: There are no recent foot x-rays available for my review. TECHNIQUE: Multiplanar, multisequence imaging of the right forefoot without contrast. FINDINGS: This examination is very difficult to interpret due to severe motion artifact throughout the study. There is hammertoe deformity of the 2nd toe. There is no obvious osteomyelitis in the visualized forefoot understanding severe limitations due to motion. However, osteomyelitis would be difficult to exclude on this examination due to poor quality. 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 Advanced fatty atrophy throughout the foot musculature compatible with longstanding peripheral neuropathy. Mild subcutaneous swelling along the dorsum of foot seen. No abscess. No obvious fracture. [facility], Rad In Fu ji Speechq - 01/24/2019 6:42 PM EDT EXAMINATION: MR FOOT RIGHT WITHOUT CONTRAST HISTORY: ORDERING SYSTEM PROVIDED HISTORY: Right foot ulcer, limited to breakdown of skin ([facility]), TECHNOLOGIST PROVIDED HISTORY: Reason for exam: possible 2nd toe osteomyelitis. redness. 2 weeks ago patient lost nail on 2nd toe last week developed infection Illness/Other Encounter Type: Initial Additional signs and symptoms: hammer toe surgery on rt 2nd toe scheduled for this week ORDERING SYSTEM PROVIDED DIAGNOSIS CODES: L97.511 Right foot ulcer, limited to breakdown of skin (HCC) M86.471 Chronic osteomyelitis with draining sinus, right ankle and foot (HCC) M20.41 Acquired hammer toe of right foot COMPARISON: There are no recent foot x-rays available for my review. TECHNIQUE: Multiplanar, multisequence imaging of the right forefoot without contrast. FINDINGS: This examination is very difficult to interpret due to severe motion artifact throughout the study. There is hammertoe deformity of the 2nd toe. There is no obvious osteomyelitis in the visualized forefoot understanding severe limitations due to motion. However, osteomyelitis would be difficult to exclude on this examination due to poor quality. 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 Advanced fatty atrophy throughout the foot musculature compatible with longstanding peripheral neuropathy. Mild subcutaneous swelling along the dorsum of foot seen. No abscess. No obvious fracture. IMPRESSION: This examination is very difficult to interpret due to severe motion artifact throughout the study. There is a hammertoe deformity of the 2nd toe. There is no obvious osteomyelitis in the visualized forefoot understanding severe limitations due to motion. However, osteomyelitis would be difficult to exclude on this examination due to poor quality. 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 PD/jw Workstation ID: [id number] [facility] Basic Metabolic Panelon 01-02 Anion gap molar conc 12 mmol/L 10 - 20 mmol/L [facility] Calcium mass conc 9.2 mg/dL 8.4 - 10.2 mg/dL [facility] Chloride molar conc 107 mmol/L 98 - 108 mmol/L [facility] Creatinine mass conc 1.18 mg/dL 0.5 - 1 .3 mg/dL [facility] GFR/1.73 sq M predicted among non-blacks MDRD vol rate/area (S/P/Bld) The eGFR should be used for monitoring renal function only and not for medication dosing. [facility] GFR/1.73 sq M.predicted CKD-EPI vol rate/area (S/P/Bld) 69 >=60 mL/min/1.73 m2 [facility] Glucose mass conc 194 mg/dL High 65 - 99 mg/dL [facility] HCO3 molar conc 25 mmol/L 21 - 32 mmol/L [facility] Interpretation and review of laboratory results Abnormal [facility] Potassium molar conc 4.4 mmol/L 3.5 - 5 .1 mmol/L [facility] Sodium molar conc 140 mmol/L 135 - 145 mmol/L [facility] Urea nitrogen mass conc 30 mg/dL High 8 - 25 mg/dL [facility] Urea nitrogen/Creatinine mass ratio 25.4 mg/mg High [facility] CBC WITH AUTO DIFFERENTIALon 01-20-2019 Basophils #/vol (Bld) 0.01 10*3/uL [facility] Basophils/100 WBC (Bld) 0.2 % [facility] Eosinophils #/vol (Bld) 0.11 10*3/uL [facility] Eosinophils/100 WBC (Bld) 2.4 % [facility] Erythrocyte distribution width Entitic volume (RBC) 12.8 % 11.6 - 14.8 % [facility] Hematocrit Volume Fraction (Bld) 39.1 % Low 41 - 53 % [facility] Hemoglobin mass conc (Bld) 13.3 g/dL Low 13.5 - 17.5 g/dL [facility] Immature granulocytes #/vol (Bld) 0.01 10*3/uL [facility] Immature granulocytes/100 WBC (Bld) 0.20 % [facility] Comment on above: The IG parameter is the percentage of metamyelocytes, myelocytes, and promyelocytes. Interpretation and review of laboratory results Abnormal [facility] Lymphocytes #/vol (Bld) 0.84 10*3/uL Low [facility] Lymphocytes/100 WBC (Bld) 18.2 % [facility] MCH Entitic mass (RBC) 29.7 pg 26 - 34 pg [facility] MCHC mass conc (RBC) 34.0 g/dL 31 - 37 g/dL [facility] MCV Entitic volume (RBC) 87.3 fL 80 - 100 fL [facility] Monocytes #/vol (Bld) 0.57 10*3/uL [facility] Monocytes/100 WBC (Bld) 12.4 % [facility] Neutrophils #/vol (Bld) 3.07 10*3/uL [facility] Neutrophils/100 WBC (Bld) 66.6 % [facility] Nucleated RBC #/vol (Bld) 0.00 10*3/uL [facility] [facility] Nucleated RBC/100 WBC Ratio (Bld) 0.0 % [facility] Platelet mean volume Entitic volume (Bld) 10.5 fL 9 - 15.5 fL [facility] Platelets #/vol (Bld) 157 10*3/uL [facility] RBC #/vol (Bld) 4.48 10*6/uL Low [facility] WBC #/vol (Bld) 4.61 10*3/uL [facility] ECG 12-LEADon 01-20-2019 Atrial Rate 82 BPM [facility] P Marceline 43 degrees [facility] P-R Interval 206 ms [facility] Q-T Interval 382 ms [facility] QRS Duration 106 ms [facility] QTC Calculation (Bezet) 446 ms [facility] R Marceline -23 degrees [facility] T Marceline 130 degrees [facility] Ventricular Rate 82 BPM [facility] Sinus rhythm with occasional Premature ventricular complexes Voltage criteria for left ventricular hypertrophy Inferior infarct , age undetermined T wave abnormality, consider lateral ischemia Abnormal ECG Confirmed by Helena Narvaez MD ([id number]) on 01/20/2019 3:19:15 PM [facility] Hemoglobin A1con 01-20-2019 Average glucose Estimated from glycated hemoglobin mass conc (Bld) 197 mg/dL High 68 - 114 mg/dL [facility] Hemoglobin A1c/Hemoglobin.total mass fraction (Bld) 8.5 % High 4 - 5.6 % [facility] Comment on above: Normal: 4.0% - 5.6% Increased risk for diabetes: 5.7% - 6.4% Diabetes: >= 6.5% Pediatrics: No established reference range Estimated average glucose: 68-114 mg/dL Please note: Reference intervals were changed as of 11/10/2018 to align with current [place] [employer] guidelines Interpretation and review of laboratory results Abnormal [facility] Office Visiton 06-15-2017 Documentation of current medications (procedure) Done Invalid Interpretation Code [facility] Work Phone: Fall risk assessment No [facility] Work Phone: Protein mass conc Done [facility] [employer] Work Phone: Progress Noteon 04-27-2017 Progress Note [facility], [place] [address]IEPE ALEKSANDAR DYLLAN ZAYAS [facility] [id number] [id number] 1962DATEPROGRESS NOTEHe is seen today for a Charcot deformity of his right foot, ulcer on the rightfoot. He has an ulcer it is probably about 2-3 mm in diameter with callus,partial thickness. He is profoundly neuropathic. His wound has filled innicely. It is almost healed up.ASSESSMENTMy assessment at this time would be right foot ulcer with a history of Charcotdeformity which has certainly done well.PLANDid a sharp excisional debridement with #15 blade needle to remove alldevitalized tissue, partial thickness. Applied Kb, dry sterile dressing.We are going to discharge the patient back to the office. Will see patienthere only on an as-needed basis.ROSA M ROBLES, JOEL 04/27/2017 12:05 [id number] 04/27/2017 15:47 BJZ/MODLElectronically Signed By Rosa M Robles DPM on 07 May 2017 01:27:26 GMT Normal [facility] CBC w/o Diffon 04-12-2017 Erythrocyte distribution width Auto Ratio (RBC) 15.8 % High 10-14.3 [facility] Comment on above: Performed By: #### C ULT ####Unless otherwise noted, all testing performed by [address] [id number]: [id number] Director: Suraj Gamez M.D. Erythrocytes (RBC) 5.03 M/mcL Normal 4.0-5.5 [facility] Comment on above: Performed By: #### C ULT ####Unless otherwise noted, all testing performed by [address] [phone]: [id number] Director: Suraj Gamez M.D. Hematocrit (HCT) 40.5 % Normal 37.9-49.2 [facility] Comment on above: Performed By: #### C ULT ####Unless otherwise noted, all testing performed by [address] [phone]: [id number] Director: Suraj Gamez M.D. Hemoglobin mass conc (Bld) 13.7 g/dL Normal 12.9-16.9 [facility] Comment on above: Performed By: #### C ULT ####Unless otherwise noted, all testing performed by [address] [phone]: [id number] Director: Suraj Gamez M.D. MCH 27.2 pg Low 27.7-34.6 [facility] Comment on above: Performed By: #### C ULT ####Unless otherwise noted, all testing performed by [address] [phone]: [id number] Director: Suraj Gamez M.D. MCHC mass conc (RBC) 33.8 g/dL Normal 32.9-35.5 [facility] Comment on above: Performed By: #### C ULT ####Unless otherwise noted, all testing performed by [address] [phone]: [id number] Director: Suraj Gamez M.D. MCV 80.4 fL Low 82.8-99.3 [facility] Comment on above: Performed By: #### C ULT ####Unless otherwise noted, all testing performed by [address] [phone]: [id number] Director: Suraj Gamez M.D. Platelet mean volume (PMV) 8.9 fL Normal 6.6-10.8 [facility] Comment on above: Performed By: #### C ULT ####Unless otherwise noted, all testing performed by [address] [phone]: [id number] Director: Suraj Gamez M.D. Platelets 183 K/mcL Normal 139-354 [facility] Comment on above: Performed By: #### C ULT ####Unless otherwise noted, all testing performed by [address], [place] [phone]: [id number] Director: Suraj Gamez M.D. WBC (Leukocytes) 5.0 K/mcL Normal 3.6-10.4 [facility] Comment on above: Performed By: #### C ULT ####Unless otherwise noted, all testing performed by [address] [phone]: [id number] Director: Suraj Gamez M.D. CHEMG (Basic Metabolic and M g)on 04-12-2017 Calcium 9.6 mg/dL Normal 8.4-10.2 [facility] Comment on above: Performed By: #### C ULT ####Unless otherwise noted, all testing performed by [address] [phone]: [id number] Director: Suraj Gamez M.D. Chloride 106 mmol/L Normal 99-111 [facility] Comment on above: Performed By: #### C ULT ####Unless otherwise noted, all testing performed by [address] [phone]: [id number] Director: Suraj Gamez M.D. CO2 27 mmol/L Normal 23-32 [facility] Comment on above: Performed By: #### C ULT ####Unless otherwise noted, all testing performed by [address] [phone]: [id number] Director: Suraj Gamez M.D. Creatinine 1.03 mg/dL Normal 0.6-1.2 [facility] Comment on above: Performed By: #### C ULT ####Unless otherwise noted, all testing performed by [address] [phone]: [id number] Director: Suraj Gamez M.D. eGFR (black) mL/min/{1.73_m2} Normal [facility] Comment on above: Performed By: #### C ULT ####Unless otherwise noted, all testing performed by [address] [phone]: [id number] Director: Suraj Gamez M.D. eGFR (non-black) mL/min/{1.73_m2} Normal [facility] Comment on above: Result Comment: eGFR is an estimated Glomerular Filtration Rate based on the valueof the patient's serum creatinine. In outpatients, eGFR should be usedas a helpful tool in screening for CKD. In inpatients or patients withacute renal failure, eGFR represents the GFR at the moment of the drawand should be used with caution. Performed By: #### C ULT ####Unless otherwise noted, all testing performed by [address] [phone]: [id number] Director: Suraj Gamez M.D. Glucose mass conc 181 mg/dL High 70-99 [facility] Comment on above: Performed By: #### C ULT ####Unless otherwise noted, all testing performed by [address] [phone]: [id number] Director: Suraj Gamez M.D. Magnesium 1.8 mg/dL Normal 1.7-2.8 [facility] Comment on above: Performed By: #### C ULT ####Unless otherwise noted, all testing performed by [address] [phone]: [id number] Director: Suraj Gamez M.D. Potassium molar conc 4.2 mmol/L Normal 3.5-5.1 [facility] Comment on above: Performed By: #### C ULT ####Unless otherwise noted, all testing performed by [address] [phone]: [id number] Director: Suraj Gamez M.D. Sodium 141 mmol/L Normal 136-145 [facility] Comment on above: Performed By: #### C ULT ####Unless otherwise noted, all testing performed by [address] [phone]: [id number] Director: Suraj Gamez M.D. Urea nitrogen 16 mg/dL Normal 6-20 [facility] Comment on above: Performed By: #### C ULT ####Unless otherwise noted, all testing performed by [address] [phone]: [id number] Director: Suraj Gamez M.D. CRP, C-Reactive Proteinon CRP, C-Reactive Protein 6.4 mg/L Normal 0.0-10.0 [facility] Comment on above: Performed By: #### C ULT ####Unless otherwise noted, all testing performed by [address] [phone]: [id number] Director: Suraj Gamez M.D. Sed Rateon 04-12-2017 Sed Rate 29 MM/hr. High 0-15 [facility] Comment on above: Performed By: #### C ULT ####Unless otherwise noted, all testing performed by [place] [phone]: [id number] Director: Suraj Gamez M.D. CBC w/o Diffon 04-05-2017 Erythrocyte distribution width Auto Ratio (RBC) 16.0 % High 10-14.3 [facility] Comment on above: Performed By: #### C BCWOD, CHEMG, CRPQT, SEDR ####Unless otherwise noted, all testing performed by [address] [phone]: [id number] Director: Suraj Gamez M.D. Erythrocytes (RBC) 4.84 M/mcL Normal 4.0-5.5 [facility] Comment on above: Performed By: #### C BCWOD, CHEMG, CRPQT, SEDR ####Unless otherwise noted, all testing performed by [address] [phone]: [id number] Director: Suraj Gamez M.D. Hematocrit (HCT) 38.9 % Normal 37.9-49.2 [facility] Comment on above: Performed By: #### C BCWOD, CHEMG, CRPQT, SEDR ####Unless otherwise noted, all testing performed by [address] [phone]: [id number] Director: Suraj Gamez M.D. Hemoglobin mass conc (Bld) 13.3 g/dL Normal 12.9-16.9 [facility] Comment on above: Performed By: #### C BCWOD, CHEMG, CRPQT, SEDR ####Unless otherwise noted, all testing performed by [address] [phone]: [id number] Director: Suraj Gamez M.D. MCH 27.5 pg Low 27.7-34.6 [facility] Comment on above: Performed By: #### C BCWOD, CHEMG, CRPQT, SEDR ####Unless otherwise noted, all testing performed by [address] [phone]: [id number] Director: Suraj Gamez M.D. MCHC mass conc (RBC) 34.3 g/dL Normal 32.9-35.5 [facility] Comment on above: Performed By: #### C BCWOD, CHEMG, CRPQT, SEDR ####Unless otherwise noted, all testing performed by [address] [phone]: [id number] Director: Suraj Gamez M.D. MCV 80.3 fL Low 82.8-99.3 [facility] Comment on above: Performed By: #### C BCWOD, CHEMG, CRPQT, SEDR ####Unless otherwise noted, all testing performed by [address] [phone]: [id number] Director: Suraj Gamez M.D. Platelet mean volume (PMV) 9.1 fL Normal 6.6-10.8 [facility] Comment on above: Performed By: #### C BCWOD, CHEMG, CRPQT, SEDR ####Unless otherwise noted, all testing performed by [address] [phone]: [id number] Director: Suraj Gamez M.D. Platelets 182 K/mcL Normal 139-354 [facility] Comment on above: Performed By: #### C BCWOD, CHEMG, CRPQT, SEDR ####Unless otherwise noted, all testing performed by [address] [phone]: [id number] Director: Suraj Gamez M.D. WBC (Leukocytes) 5.2 K/mcL Normal 3.6-10.4 [facility] Comment on above: Performed By: #### C BCWOD, CHEMG, CRPQT, SEDR ####Unless otherwise noted, all testing performed by [address] [phone]: [id number] Director: Suraj Gamez M.D. CHEMG (Basic Metabolic and M g)on 04-05-2017 Calcium 9.6 mg/dL Normal 8.4-10.2 [facility] Comment on above: Performed By: #### C BCWOD, CHEMG, CRPQT, SEDR ####Unless otherwise noted, all testing performed by [address] [phone]: [id number] Director: Suraj Gamez M.D. Chloride 107 mmol/L Normal 99-111 [facility] Comment on above: Performed By: #### C BCWOD, CHEMG, CRPQT, SEDR ####Unless otherwise noted, all testing performed by [address] [phone]: [id number] Director: Suraj Gamez M.D. CO2 28 mmol/L Normal 23-32 [facility] Comment on above: Performed By: #### C BCWOD, CHEMG, CRPQT, SEDR ####Unless otherwise noted, all testing performed by [address] [phone]: [id number] Director: Suraj Gamez M.D. Creatinine 0.92 mg/dL Normal 0.6-1.2 [facility] Comment on above: Performed By: #### C BCWOD, CHEMG, CRPQT, SEDR ####Unless otherwise noted, all testing performed by [address] [phone]: [id number] Director: Suraj Gamez M.D. eGFR (black) mL/min/{1.73_m2} Normal [facility] Comment on above: Performed By: #### C BCWOD, CHEMG, CRPQT, SEDR ####Unless otherwise noted, all testing performed by [address] [phone]: [id number] Director: Suraj Gamez M.D. eGFR (non-black) mL/min/{1.73_m2} Normal [facility] Comment on above: Result Comment: eGFR is an estimated Glomerular Filtration Rate based on the valueof the patient's serum creatinine. In outpatients, eGFR should be usedas a helpful tool in screening for CKD. In inpatients or patients withacute renal failure, eGFR represents the GFR at the moment of the drawand should be used with caution. Performed By: #### C BCWOD, CHEMG, CRPQT, SEDR ####Unless otherwise noted, all testing performed by [address] [phone]: [id number] Director: Suraj Gamez M.D. Glucose mass conc 119 mg/dL High 70-99 [facility] Comment on above: Performed By: #### C BCWOD, CHEMG, CRPQT, SEDR ####Unless otherwise noted, all testing performed by [address] [phone]: [id number] Director: Suraj Gamez M.D. Magnesium 1.8 mg/dL Normal 1.7-2.8 [facility] Comment on above: Performed By: #### C BCWOD, CHEMG, CRPQT, SEDR ####Unless otherwise noted, all testing performed by [address] [phone]: [id number] Director: Suraj Gamez M.D. Potassium molar conc 3.9 mmol/L Normal 3.5-5.1 [facility] Comment on above: Performed By: #### C BCWOD, CHEMG, CRPQT, SEDR ####Unless otherwise noted, all testing performed by [address] [phone]: [id number] Director: Suraj Gamez M.D. Sodium 143 mmol/L Normal 136-145 [facility] Comment on above: Performed By: #### C BCWOD, CHEMG, CRPQT, SEDR ####Unless otherwise noted, all testing performed by [address] [phone]: [id number] Director: Suraj Gamez M.D. Urea nitrogen 14 mg/dL Normal 6-20 [facility] Comment on above: Performed By: #### C BCWOD, CHEMG, CRPQT, SEDR ####Unless otherwise noted, all testing performed by [address] [phone]: [id number] Director: Suraj Gamez M.D. CRP, C-Reactive Proteinon CRP, C-Reactive Protein 11.0 mg/L High 0.0-10.0 [facility] Comment on above: Performed By: #### C BCWOD, CHEMG, CRPQT, SEDR ####Unless otherwise noted, all testing performed by [address] [phone]: [id number] Director: Suraj Gamez M.D. Sed Rateon 04-05-2017 Sed Rate 31 MM/hr. High 0-15 [facility] Comment on above: Performed By: #### C BCWOD, CHEMG, CRPQT, SEDR ####Unless otherwise noted, all testing performed by [address] [phone]: [id number] Director: Suraj Gamez M.D. [facility] 04-01-2017 Alanine aminotransferase (ALT) 22 U/L Normal 10-40 [facility] Comment on above: Performed By: #### C MET, LIPID, TSH, HBA1C ####Unless otherwise noted, all testing performed by [address] [place] [phone]: [id number] Director: Suraj Gamez M.D. Albumin 4.1 g/dL Normal 3.5-5.0 [facility] Comment on above: Performed By: #### C MET, LIPID, TSH, HBA1C ####Unless otherwise noted, all testing performed by [place] [phone]: [id number] Director: Suraj Gamez M.D. Alkaline phosphatase (ALP) 84 U/L Normal 25-100 [facility] Comment on above: Performed By: #### C MET, LIPID, TSH, HBA1C ####Unless otherwise noted, all testing performed by [address]8509CLIA: [id number] Director: Suraj Gamez M.D. Aspartate aminotransferase (AST) 27 U/L Normal 10-40 [facility] Comment on above: Performed By: #### C MET, LIPID, TSH, HBA1C ####Unless otherwise noted, all testing performed by [place] [phone]: [id number] Director: Suraj Gamez M.D. Bilirubin (total) 0.4 mg/dL Normal 0.3-1.2 [facility] Comment on above: Performed By: #### C MET, LIPID, TSH, HBA1C ####Unless otherwise noted, all testing performed by [place] [phone]: [id number] Director: Suraj Gamez M.D. Calcium 9.4 mg/dL Normal 8.4-10.2 [facility] Comment on above: Performed By: #### C MET, LIPID, TSH, HBA1C ####Unless otherwise noted, all testing performed by [address] [phone]: [id number] Director: Suraj Gamez M.D. Chloride 106 mmol/L Normal 99-111 [facility] Comment on above: Performed By: #### C MET, LIPID, TSH, HBA1C ####Unless otherwise noted, all testing performed by [place] [phone]: [id number] Director: Suraj Gamez M.D. CO2 28 mmol/L Normal 23-32 [facility] Comment on above: Performed By: #### C MET, LIPID, TSH, HBA1C ####Unless otherwise noted, all testing performed by [address] [phone]: [id number] Director: Suraj Gamez M.D. Creatinine 1.00 mg/dL Normal 0.6-1.2 [facility] Comment on above: Performed By: #### C MET, LIPID, TSH, HBA1C ####Unless otherwise noted, all testing performed by [address] [phone]: [id number] Director: Suraj Gamez M.D. eGFR (black) mL/min/{1.73_m2} Normal [facility] Comment on above: Performed By: #### C MET, LIPID, TSH, HBA1C ####Unless otherwise noted, all testing performed by [place] [phone]: [id number] Director: Suraj Gamez M.D. eGFR (non-black) mL/min/{1.73_m2} Normal [facility] Comment on above: Result Comment: eGFR is an estimated Glomerular Filtration Rate based on the valueof the patient's serum creatinine. In outpatients, eGFR should be usedas a helpful tool in screening for CKD. In inpatients or patients withacute renal failure, eGFR represents the GFR at the moment of the drawand should be used with caution. Performed By: #### C MET, LIPID, TSH, HBA1C ####Unless otherwise noted, all testing performed by [address] [phone]: [id number] Director: Suraj Gamez M.D. Glucose mass conc 137 mg/dL High 70-99 [facility] Comment on above: Performed By: #### C MET, LIPID, TSH, HBA1C ####Unless otherwise noted, all testing performed by [address] [phone]: [id number] Director: Suraj Gamez M.D. Potassium molar conc 4.0 mmol/L Normal 3.5-5.1 [facility] Comment on above: Performed By: #### C MET, LIPID, TSH, HBA1C ####Unless otherwise noted, all testing performed by [address] [phone]: [id number] Director: Suraj Gamez M.D. Protein 7.1 g/dL Normal 6.4-8.3 [facility] Comment on above: Performed By: #### C MET, LIPID, TSH, HBA1C ####Unless otherwise noted, all testing performed by [address], [place] [phone]: [id number] Director: Suraj Gamez M.D. Sodium 143 mmol/L Normal 136-145 [facility] Comment on above: Performed By: #### C MET, LIPID, TSH, HBA1C ####Unless otherwise noted, all testing performed by [address] [phone]: [id number] Director: Suraj Gamez M.D. Urea nitrogen 25 mg/dL High 6-20 [facility] Comment on above: Performed By: #### C MET, LIPID, TSH, HBA1C ####Unless otherwise noted, all testing performed by [address] [phone]: [id number] Director: Suraj Gamez M.D. Hemoglobin A1Con 04-01-2017 Hemoglobin A1c/Hemoglobin.total mass fraction (Bld) 8.3 % High 4.1-6.5 [facility] Comment on above: Performed By: #### C MET, LIPID, TSH, HBA1C ####Unless otherwise noted, all testing performed by [address] [phone]: [id number] Director: Suraj Gamez M.D. Lipid Panelon 04-01-2017 Cholesterol 188 mg/dL Normal 112-200 [facility] Comment on above: Performed By: #### C MET, LIPID, TSH, HBA1C ####Unless otherwise noted, all testing performed by [address] [phone]: [id number] Director: Suraj Gamez M.D. Cholesterol in VLDL mass conc 66 mg/dL High 5-40 [facility] Comment on above: Performed By: #### C MET, LIPID, TSH, HBA1C ####Unless otherwise noted, all testing performed by [place] [phone]: [id number] Director: Suraj Gamez M.D. Cholesterol to HDL Ratio 7.2 {ratio} High 3.3-5.0 [facility] Comment on above: Result Comment: Male Coronary Heart Disease Risk Factor (CHDRF):Average risk= 5.01/2 Average risk= 3.42 times Average risk= 9.6 Performed By: #### C MET, LIPID, TSH, HBA1C ####Unless otherwise noted, all testing performed by [address] [phone]: [id number] Director: Suraj Gamez M.D. HDL Cholesterol 26 mg/dL Low 28-75 [facility] Comment on above: Performed By: #### C MET, LIPID, TSH, HBA1C ####Unless otherwise noted, all testing performed by [address] [phone]: [id number] Director: Suraj Gamez M.D. LDL Cholesterol 96 mg/dL Normal < 130 [facility] Comment on above: Performed By: #### C MET, LIPID, TSH, HBA1C ####Unless otherwise noted, all testing performed by [address] [phone]: [id number] Director: Suraj Gamez M.D. Triglyceride 331 mg/dL High 35-150 [facility] Comment on above: Performed By: #### C MET, LIPID, TSH, HBA1C ####Unless otherwise noted, all testing performed by [address] [phone]: [id number] Director: Suraj Gamez M.D. TSHon 04-01-2017 Thyroid stimulating hormone (TSH) 1.227 uIU/mL Normal 0.350-5.500 [facility] Comment on above: Result Comment: Riaz french note that Fluorescein which is used in angiography has been shownto falsely depress the results of TSH with our current assay. Evidencesuggests that patients undergoing fluorescein dye angiography can retainsmall amounts of fluorescein in the body for up to 48 to 72 hourspost-treatment. In the cases of patients with renal insufficiency,retention could be much longer. Samples should be resubmitted postfluorescein clearance to ensure there is no interference with the TSHtest result. Performed By: #### C MET, LIPID, TSH, HBA1C ####Unless otherwise noted, all testing performed by [address] [id number]: [id number] Director: Suraj Gamez M.D. Culture,Bacterialon 03-31-20 17 Culture,Bacterial Test Name: Culture,Bacterial Site: Rt Foot Plantar Culture Status: Final Culture Report: Normal Chalino Gram Stain: Few WBC's Few Squamous Epithelial Cells Moderate Cellular debris Rare Gram Negative Rods Few Gram Positive Cocci Micro Source: .... Normal [facility] Comment on above: Performed By: #### C ULT ####Unless otherwise noted, all testing performed by [address] [id number]: [id number] Director: Suraj Gamez M.D. Office Visit: [facility] 02-05-20 17 Documentation of current medications (procedure) Done Invalid Interpretation Code [facility] Work Phone: Clinical Lists Update: Clini yany Noteon 01-25-2017 Left ventricular Ejection fraction 34 % [employer] Work Phone: [phone] Office Visiton 11-03-2016 Tobacco smoking status NHIS Former smoker [employer] Work Phone: [phone] Tobacco use [facility] Former smoker Invalid Interpretation Code [employer] Work Phone: [phone] Replaced Document: Shruthi Enriquez CG Observationson 11-03-2016 EKG QRS axis -15 deg [employer] Work Phone: [phone] electrocardiogram interpretation Sinus Rhythm -Old inferior infarct -Poor R-wave progression -nonspecific -consider old anterior infarct. - T-abnormality -Lateral ischemia. ABNORMAL Invalid Interpretation Code [facility] Work Phone: [phone] GE use only - for [employer] import when terms are not otherwise specified 409 ms Invalid Interpretation Code [employer] Phone: [phone] P Marceline 44 deg [facility] Work Phone: [phone] P wave axis, electrocardiogram 44 deg Invalid Interpretation Code [employer] Work Phone: [phone] WI Interval 188 ms [employer] Work Phone: [phone] WI interval, electrocardiogram 188 ms Invalid Interpretation Code [employer] Work Phone: [phone] Protein mass conc Sinus Rhythm -Old inferior infarct -Poor R-wave progression -nonspecific -consider old anterior infarct. - T-abnormality -Lateral ischemia. ABNORMAL [employer] Work Phone: [phone] Pulse (Heart Rate) 96 /min Invalid Interpretation Code [employer] Work Phone: [phone] QRS axis, electrocardiogram -15 deg Invalid Interpretation Code [employer] Work Phone: [phone] QRS Duration 106 ms [employer] Work Phone: [phone] QRS duration, electrocardiogram 106 ms Invalid Interpretation Code [employer] Work Phone: [phone] QT Interval new path ms [employer] Work Phone: [phone] QT interval, electrocardiogram new path ms Invalid Interpretation Code [employer] Work Phone: [phone] QTc Raines 409 ms [employer] Work Phone: [phone] T Marceline 152 deg [facility] Work Phone: [phone] T wave axis, electrocardiogram 152 deg Invalid Interpretation Code [facility] Work Phone: [phone] Clinical 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-2016 BUN/Creatinine Ratio 23.6 mg/mg [facility] Work Phone: [phone] Calcium 9.5 mg/dL [facility] Work Phone: [phone] Chloride 103 mmol/L [facility] Work [phone] CO2 22.2 mmol/L Low [facility] Work Phone: [phone] CO2 ppres (BldV) 22.2 mmol/L Low [facility] Work Phone: [phone] Creatinine 1.1 mg/dL [facility] Work Phone: [phone] Glucose 162 mg/dL High [facility] Work Phone: [phone] Glucose mass conc 162 mg/dL High [facility] Work Phone: [phone] Potassium 4.2 mmol/L [facility] Work Phone: [phone] Sodium 136 mmol/L [facility] Work Phone: [phone] Urea nitrogen 26 mg/dL High [facility] Work Phone: [phone] Lab Report: CBC-Complete Blo od Cnt No Diffon 09-22-2016 Erythrocyte distribution width Ratio (RBC) 13.8 % 11.6-14.6 [facility] Work Phone: [phone] Erythrocyte distribution width Ratio (RBC) 44.0 fL High 35.1-43.9 [facility] Work Phone: [phone] Erythrocytes (RBC) 4.88 10*6/uL Invalid Interpretation Code 4.6-6.2 [facility] Work Phone: [phone] Hematocrit (HCT) 42.8 % Invalid Interpretation Code 40-54 [facility] Work Phone: [phone] Hematocrit Volume Fraction (Bld) 42.8 % 40-54 [facility] Work Phone: [phone] Hemoglobin (HGB) 14.7 g/dL 13.0-16.5 [facility] Work Phone: [phone] MCH 30.1 pg Invalid Interpretation Code 27.0-32.0 [facility] Work Phone: [phone] MCH Entitic mass (RBC) 30.1 pg 27.0-32.0 [facility] Work Phone: [phone] MCHC 34.3 G/GL Invalid Interpretation Code 32-36 [facility] Work Phone: [phone] MCHC mass conc (RBC) 34.3 G/GL 32-[address] [facility] Work Phone: [phone] MCV 87.7 fL Invalid Interpretation Code 80-94 [facility] Work Phone: [phone] MCV Entitic volume (RBC) 87.7 fL 80-94 [facility] Work Phone: [phone] Platelet mean volume Entitic volume (Bld) 10.3 fL 6.2-12.0 [facility] Work Phone: [phone] Platelets 199 10*3/mm3 Invalid Interpretation Code 150-450 [facility] Work Phone: [phone] Platelets #/vol (Bld) 199 10*3/mm3 150-450 [facility] Work Phone: [phone] PMV by Miguel 10.3 fL Invalid Interpretation Code 6.2-12.0 [facility] Work Phone: [phone] RBC #/vol (Bld) 4.88 10*6/uL 4.6-6.2 [facility] Work Phone: [phone] RDW-CA 13.8 % Invalid Interpretation Code 11.6-14.6 [facility] Work Phone: [phone] red blood cell distribution width, size density 44.0 fL High 35.1-43.9 [facility] Work Phone: [phone] WBC #/vol (Bld) 5.3 10*3/uL 4.4-11.0 [facility] Work Phone: [phone] WBC (Leukocytes) 5.3 10*3/uL Invalid Interpretation Code 4.4-11.0 [facility] Work Phone: [phone] Lab Report: Partial Thrombop last Timeon 09-22-2016 aPTT 30.7 s 24.1-36.2 [facility] Work Phone: [phone] Lab Report: Prothrombin Time w/INRon 09-22-2016 Coagulation tissue factor induced in platelet poor plasma 11.9 s 11.7-14.9 [facility] Work Phone: [phone] INR Coag RelTime (PPP) 0.9 {INR} [facility] Work Phone: [phone] INR in blood by coagulation 0.9 {INR} Invalid Interpretation Code [facility] Work Phone: [phone] Clinical Lists Update: 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 09-02-2016 eGFR (non-black) mL/min/{1.73_m2} [facility] Work Phone: [phone] Glomerular Filtration Rate >60 [facility] Work Phone: [phone] Vital Signs Date Time Vital Sign Value Performing Clinician Facility 04-25-2025 12:52-0400 Body height 180.3 cm Bhakti SIERRA-C Work Phone: [facility] 04-25-2025 12:52-0400 Body mass index (BMI) [Ratio] 37.69 kg/m2 Bhakti Chambers PA-C Work Phone: [facility] 04-25-2025 12:52-0400 Body weight 122.56 kg Bhakti SIERRA-C Work Phone: [facility] 04-25-2025 12:52-0400 Diastolic blood pressure 82 mm[Hg] Bhakti Chambers PA-C Work Phone: [facility] 04-25-2025 12:52-0400 Heart rate 69 /min Bhakti Chambers PA-C Work Phone: [facility] 04-25-2025 12:52-0400 Systolic blood pressure 144 mm[Hg] Bhakti SIERRA-C Work Phone: [facility] 04-23-2025 09:39-0400 Body temperature 98.1 [degF] Alena [place] DPM Work Phone: [facility] 04-23-2025 09:39-0400 Diastolic blood pressure 73 mm[Hg] Alena [place] DPM Work Phone: [facility] 04-23-2025 09:39-0400 Heart rate 92 /min Alena Abby DPM Work Phone: [facility] 04-23-2025 09:39-0400 Systolic blood pressure 126 mm[Hg] Alena [place] DPM Work Phone: [facility] 04-16-2025 09:56-0400 Diastolic blood pressure 78 mm[Hg] Alena [place] DPM Work Phone: [facility] 04-16-2025 09:56-0400 Heart rate 60 /min Alena [place] DPM Work Phone: [facility] 04-16-2025 09:56-0400 Systolic blood pressure 134 mm[Hg] Alena [place] DPM Work Phone: [facility] 04-16-2025 09:43-0400 Body temperature 97.59 [degF] Alena [place] DPM Work Phone: [facility] 04-09-2025 14:20-0400 Diastolic blood pressure 78 mm[Hg] Alena [place] DPM Work Phone: [facility] 04-09-2025 14:20-0400 Heart rate 71 /min Alena [place] DPM Work Phone: [facility] 04-09-2025 14:20-0400 Systolic blood pressure 151 mm[Hg] Alena [place] DPM Work Phone: [facility] 04-09-2025 14:12-0400 Body temperature 98.2 [degF] Alena [place] DPM Work Phone: [facility] 04-02-2025 13:27-0400 Body temperature 98.01 [degF] Alena [place] DPM Work Phone: [facility] 04-02-2025 13:27-0400 Diastolic blood pressure 74 mm[Hg] Alena Abby DPM Work Phone: [facility] 04-02-2025 13:27-0400 Heart rate 87 /min Alena [place] DPM Work Phone: [facility] 04-02-2025 13:27-0400 Systolic blood pressure 122 mm[Hg] Alena [place] DPM Work Phone: [facility] 03-26-2025 13:09-0400 Body temperature 98.4 [degF] Alena Abby DPM Work Phone: [facility] 03-26-2025 13:09-0400 Diastolic blood pressure 71 mm[Hg] Alena Abby DPM Work Phone: [facility] 03-26-2025 13:09-0400 Heart rate 83 /min Alena Abby DPM Work Phone: [facility] 03-26-2025 13:09-0400 Systolic blood pressure 132 mm[Hg] Alena Abby DPM Work Phone: [facility] 03-19-2025 13:54-0400 Diastolic blood pressure 70 mm[Hg] Alena Abby DPM Work Phone: [facility] 03-19-2025 13:54-0400 Heart rate 81 /min Alena Abby DPM Work Phone: [facility] 03-19-2025 13:54-0400 Systolic blood pressure 124 mm[Hg] Alena [place] DPM Work Phone: [facility] 03-19-2025 13:41-0400 Body temperature 97.5 [degF] Alena Abby DPM Work Phone: [facility] 03-19-2025 08:50-0400 Body height 180.[address] Jace Reeder DO Work Phone: [facility] 03-19-2025 08:50-0400 Body mass index (BMI) [Ratio] 37.5 kg/m2 Dr. Jace Reeder DO Work Phone: [facility] 03-19-2025 08:50-0400 Body weight 122.[address] Jace Reeder DO Work Phone: [facility] 03-19-2025 08:50-0400 Diastolic blood pressure 78 mm[Hg] Dr. Jace Reeder DO Work Phone: [facility] 03-19-2025 08:50-0400 Heart rate 86 /min Dr. Jace Reeder DO Work Phone: [facility] 03-19-2025 08:50-0400 Respiratory rate 18 /min Dr. Jace Reeder DO Work Phone: [facility] 03-19-2025 08:50-0400 Systolic blood pressure 128 mm[Hg] Dr. Jace Reeder DO Work Phone: [facility] 03-14-2025 12:55-0400 Body height 180.3 cm Bhakti Chambers PA-C Work Phone: [facility] 03-14-2025 12:55-0400 Body mass index (BMI) [Ratio] 37.38 kg/m2 Bhakti Chambers PA-C Work Phone: [facility] 03-14-2025 12:55-0400 Body weight 121.56 kg Bhakti Chambers PA-C Work Phone: [facility] 03-14-2025 12:55-0400 Diastolic blood pressure 78 mm[Hg] Bhakti Chambers PA-C Work Phone: [facility] 03-14-2025 12:55-0400 Heart rate 72 /min Bhakti Chambers PA-C Work Phone: [facility] 03-14-2025 12:55-0400 Systolic blood pressure 132 mm[Hg] Bhakti Chambers PA-C Work Phone: [facility] 03-13-2025 13:09-0400 Body temperature 98.01 [degF] Alena [place] DPM Work Phone: [facility] 03-13-2025 13:09-0400 Diastolic blood pressure 68 mm[Hg] Alena [place] DPM Work Phone: [facility] 03-13-2025 13:09-0400 Heart rate 63 /min Alena [place] DPM Work Phone: [facility] 03-13-2025 13:09-0400 Systolic blood pressure 125 mm[Hg] Alena Abby DPM Work Phone: [facility] 03-06-2025 13:34-0400 Body temperature 98.01 [degF] Alena [place] DPM Work Phone: [facility] 03-06-2025 13:34-0400 Diastolic blood pressure 68 mm[Hg] Alena [place] DPM Work Phone: [facility] 03-06-2025 13:34-0400 Heart rate 82 /min Alena Abby DPM Work Phone: [facility] 03-06-2025 13:34-0400 Systolic blood pressure 110 mm[Hg] Alena Abby DPM Work Phone: [facility] 02-27-2025 14:28-0400 Body temperature 97.7 [degF] Alena Abby DPM Work Phone: [facility] 02-27-2025 14:28-0400 Diastolic blood pressure 71 mm[Hg] Alena Abby DPM Work Phone: [facility] 02-27-2025 14:28-0400 Heart rate 79 /min Alena Abby DPM Work Phone: [facility] 02-27-2025 14:28-0400 Systolic blood pressure 115 mm[Hg] Alena Abby DPM Work Phone: [facility] 02-19-2025 13:42-0400 Diastolic blood pressure 86 mm[Hg] Alena Abby DPM Work Phone: [facility] 02-19-2025 13:42-0400 Heart rate 84 /min Alena Abby DPM Work Phone: [facility] 02-19-2025 13:42-0400 Systolic blood pressure 131 mm[Hg] Alena Abby DPM Work Phone: [facility] 02-19-2025 13:32-0400 Body temperature 97.39 [degF] Alena Abby DPM Work Phone: [facility] 02-05-2025 13:04-0400 Body temperature 98.01 [degF] Alena [place] DPM Work Phone: [facility] 02-05-2025 13:04-0400 Diastolic blood pressure 80 mm[Hg] Alena Abby DPM Work Phone: [facility] 02-05-2025 13:04-0400 Heart rate 55 /min Alena [place] DPM Work Phone: [facility] 02-05-2025 13:04-0400 Systolic blood pressure 148 mm[Hg] Alena [place] DPM Work Phone: [facility] 01-29-2025 13:09-0400 Diastolic blood pressure 63 mm[Hg] Alena [place] DPM Work Phone: [facility] 01-29-2025 13:09-0400 Heart rate 38 /min Alena Abby DPM Work Phone: [facility] 01-29-2025 13:09-0400 Systolic blood pressure 147 mm[Hg] Alena [place] DPM Work Phone: [facility] 01-29-2025 13:06-0400 Body temperature 97 [degF] Alena Abby DPM Work Phone: [facility] 01-15-2025 13:39-0400 Body temperature 98.01 [degF] Alena Abby DPM Work Phone: [facility] 01-15-2025 13:39-0400 Diastolic blood pressure 64 mm[Hg] Alena [place] DPM Work Phone: [facility] 01-15-2025 13:39-0400 Heart rate 94 /min Alena Abby DPM Work Phone: [facility] 01-15-2025 13:39-0400 Systolic blood pressure 95 mm[Hg] Alena Abby DPM Work Phone: [facility] 01-11-2025 09:45-0400 Body height 180.3 cm Bhaktideidra Ariasall PA-C Work Phone: [facility] 01-11-2025 09:45-0400 Body mass index (BMI) [Ratio] 37.6 kg/m2 Bhaktideidra Ariasall PA-C Work Phone: [facility] 01-11-2025 09:45-0400 Body weight 122.29 kg Bhakti Reyes PA-C Work Phone: [facility] 01-11-2025 09:45-0400 Diastolic blood pressure 84 mm[Hg] Bhaktidiedra Ariasall PA-C Work Phone: [facility] 01-11-2025 09:45-0400 Heart rate 40 /min Bhaktideidra Ariasall PA-C Work Phone: [facility] 01-11-2025 09:45-0400 SaO2% (BldA) [Mass fraction] 96 % Bhakti Niwot PA-C Work Phone: [facility] 01-11-2025 09:45-0400 Systolic blood pressure 131 mm[Hg] Bhaktideidra Ariasall PA-C Work Phone: [facility] 01-08-2025 14:40-0400 Diastolic blood pressure 64 mm[Hg] Alena [place] DPM Work Phone: [facility] 01-08-2025 14:40-0400 Heart rate 61 /min Alena Abby DPM Work Phone: [facility] 01-08-2025 14:40-0400 Systolic blood pressure 136 mm[Hg] Alena Abby DPM Work Phone: [facility] 01-08-2025 14:19-0400 Body temperature 98.1 [degF] Alena Abby DPM Work Phone: [facility] 12-25-2024 14:10-0400 Diastolic blood pressure 63 mm[Hg] Alena Abby DPM Work Phone: [facility] 12-25-2024 14:10-0400 Heart rate 41 /min Alena [place] DPM Work Phone: [facility] 12-25-2024 14:10-0400 Systolic blood pressure 140 mm[Hg] Alena Abby DPM Work Phone: [facility] 12-25-2024 13:56-0400 Body temperature 97.59 [degF] Alena [place] DPM Work Phone: [facility] 12-04-2024 14:44-0500 Body temperature 97.5 [degF] Alena Abby DPM Work Phone: [facility] 12-04-2024 14:44-0500 Diastolic blood pressure 77 mm[Hg] Alena Abby DPM Work Phone: [facility] 12-04-2024 14:44-0500 Heart rate 56 /min Alena [place] DPM Work Phone: [facility] 12-04-2024 14:44-0500 Systolic blood pressure 141 mm[Hg] Alena Abby DPM Work Phone: [facility] 11-27-2024 14:11-0500 Body temperature 98.49 [degF] Alena [place] DPM Work Phone: [facility] 11-27-2024 14:11-0500 Diastolic blood pressure 69 mm[Hg] Alena Abby DPM Work Phone: [facility] 11-27-2024 14:11-0500 Heart rate 84 /min Alena [place] DPM Work Phone: [facility] 11-27-2024 14:11-0500 Systolic blood pressure 122 mm[Hg] Alena Abby DPM Work Phone: [facility] 11-20-2024 14:36-0500 Body temperature 97.2 [degF] Alena [place] DPM Work Phone: [facility] 11-20-2024 14:36-0500 Diastolic blood pressure 80 mm[Hg] Alena Abby DPM Work Phone: [facility] 11-20-2024 14:36-0500 Heart rate 88 /min Alena [place] DPM Work Phone: [facility] 11-20-2024 14:36-0500 Systolic blood pressure 135 mm[Hg] Alena Abby DPM Work Phone: [facility] 11-13-2024 14:20-0500 Diastolic blood pressure 89 mm[Hg] Alena [place] DPM Work Phone: [facility] 11-13-2024 14:20-0500 Heart rate 73 /min Alena [place] DPM Work Phone: [facility] 11-13-2024 14:20-0500 Systolic blood pressure 160 mm[Hg] Alena [place] DPM Work Phone: [facility] 11-13-2024 14:11-0500 Body temperature 98.2 [degF] Alena Abby DPM Work Phone: [facility] 11-06-2024 15:02-0500 Diastolic blood pressure 90 mm[Hg] Aelna Abby DPM Work Phone: [facility] Comment on above: pt was talking 11-06-2024 15:02-0500 Heart rate 103 /min Alena Abby DPM Work Phone: [facility] 11-06-2024 15:02-0500 Systolic blood pressure 170 mm[Hg] Alena Abby DPM Work Phone: [facility] Comment on above: pt was talking 11-06-2024 14:48-0500 Body temperature 98.2 [degF] Alena [place] DPM Work Phone: [facility] 10-20-2024 08:59-0500 Body temperature 97.81 [degF] Alena [place] DPM Work Phone: [facility] 10-20-2024 08:59-0500 Diastolic blood pressure 81 mm[Hg] Alena [place] DPM Work Phone: [facility] 10-20-2024 08:59-0500 Heart rate 84 /min Alena [place] DPM Work Phone: [facility] 10-20-2024 08:59-0500 Respiratory rate 16 /min Alean [place] DPM Work Phone: [facility] 10-20-2024 08:59-0500 SaO2% (BldA) [Mass fraction] 92 % Alena Abby DPM Work Phone: [facility] 10-20-2024 08:59-0500 Systolic blood pressure 139 mm[Hg] Alena Abby DPM Work Phone: [facility] 10-06-2024 09:26-0500 Body temperature 98.01 [degF] Alena [place] DPM Work Phone: [facility] 10-06-2024 09:26-0500 Diastolic blood pressure 81 mm[Hg] Alena Abby DPM Work Phone: [facility] 10-06-2024 09:26-0500 Heart rate 78 /min Alena Abby DPM Work Phone: [facility] 10-06-2024 09:26-0500 Respiratory rate 16 /min Alena Abby DPM Work Phone: [facility] 10-06-2024 09:26-0500 SaO2% (BldA) [Mass fraction] 90 % Alena [place] DPM Work Phone: [facility] 10-06-2024 09:26-0500 Systolic blood pressure 148 mm[Hg] Alena [place] DPM Work Phone: [facility] 09-22-2024 08:58-0500 Body temperature 98.01 [degF] Alena Abby DPM Work Phone: [facility] 09-22-2024 08:58-0500 Diastolic blood pressure 83 mm[Hg] Alena [place] DPM Work Phone: [facility] 09-22-2024 08:58-0500 Heart rate 79 /min Alena Abby DPM Work Phone: [facility] 09-22-2024 08:58-0500 Respiratory rate 18 /min Alena Abyb DPM Work Phone: [facility] 09-22-2024 08:58-0500 SaO2% (BldA) [Mass fraction] 91 % Alena Abby DPM Work Phone: [facility] 09-22-2024 08:58-0500 Systolic blood pressure 132 mm[Hg] Alena [place] DPM Work Phone: [facility] 09-15-2024 10:18-0500 Body temperature 97.59 [degF] Alena [place] DPM Work Phone: [facility] 09-15-2024 10:18-0500 Diastolic blood pressure 64 mm[Hg] Alena Abby DPM Work Phone: [facility] 09-15-2024 10:18-0500 Heart rate 91 /min Alena Abby DPM Work Phone: [facility] 09-15-2024 10:18-0500 Respiratory rate 16 /min Alena Abby DPM Work Phone: [facility] 09-15-2024 10:18-0500 SaO2% (BldA) [Mass fraction] 93 % Alena [place] DPM Work Phone: [facility] 09-15-2024 10:18-0500 Systolic blood pressure 106 mm[Hg] Alena Abby DPM Work Phone: [facility] 09-08-2024 10:21-0500 Body temperature 97.59 [degF] Alena Abby DPM Work Phone: [facility] 09-08-2024 10:21-0500 Diastolic blood pressure 76 mm[Hg] Alena [place] DPM Work Phone: [facility] - [place] 09-08-2024 10:21-0500 Heart rate 78 /min Alena [place] DPM Work Phone: [facility] [place] 09-08-2024 10:21-0500 Respiratory rate 16 /min Alena [place] DPM Work Phone: [facility] [place] 09-08-2024 10:21-0500 SaO2% (BldA) [Mass fraction] 95 % Alena Abby DPM Work Phone: [facility] [place] 09-08-2024 10:21-0500 Systolic blood pressure 147 mm[Hg] Alena Abby DPM Work Phone: [facility] [place] 08-25-2024 08:39-0500 Body temperature 98.29 [degF] Torie Domka DE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 Work Phone: [facility] [place] 08-25-2024 08:39-0500 Diastolic blood pressure 78 mm[Hg] Torie Domka DE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 Work Phone: [facility] [place] 08-25-2024 08:39-0500 Heart rate 86 /min Torie Domka DE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 Work Phone: [facility] [place] 08-25-2024 08:39-0500 Respiratory rate 16 /min Torie Domka DE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 Work Phone: [facility] [place] 08-25-2024 08:39-0500 SaO2% (BldA) [Mass fraction] 92 % Torie Avendano DE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 Work Phone: [facility] [place] 08-25-2024 08:39-0500 Systolic blood pressure 151 mm[Hg] Torie Avendano DE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 Work Phone: [facility] [place] 08-18-2024 08:55-0500 Diastolic blood pressure 76 mm[Hg] Alena [place] DPM Work Phone: [facility] [place] 08-18-2024 08:55-0500 Heart rate 58 /min Alena Abby DPM Work Phone: [facility] [place] 08-18-2024 08:55-0500 Respiratory rate 18 /min Alena Abby DPM Work Phone: [facility] [place] 08-18-2024 08:55-0500 SaO2% (BldA) [Mass fraction] 92 % Alena [place] DPM Work Phone: [facility] [place] 08-18-2024 08:55-0500 Systolic blood pressure 142 mm[Hg] Alena Abby DPM Work Phone: [facility] [place] 08-11-2024 09:36-0500 Body temperature 98.6 [degF] Alena [place] DPM Work Phone: [facility] [place] 08-11-2024 09:36-0500 Diastolic blood pressure 74 mm[Hg] Alena [place] DPM Work Phone: [facility] [place] 08-11-2024 09:36-0500 Heart rate 72 /min Alena Abby DPM Work Phone: [facility] [place] 08-11-2024 09:36-0500 Respiratory rate 18 /min Alena [place] DPM Work Phone: [facility] [place] 08-11-2024 09:36-0500 SaO2% (BldA) [Mass fraction] 92 % Alena [place] DPM Work Phone: [facility] [place] 08-11-2024 09:36-0500 Systolic blood pressure 128 mm[Hg] Alena [place] DPM Work Phone: [facility] [place] 08-04-2024 09:58-0400 Body temperature 97.9 [degF] Alena [place] DPM Work Phone: [facility] [place] 08-04-2024 09:58-0400 Diastolic blood pressure 96 mm[Hg] Alena [place] DPM Work Phone: [facility] [place] 08-04-2024 09:58-0400 Heart rate 69 /min Alena Abby DPM Work Phone: [facility] [place] 08-04-2024 09:58-0400 Respiratory rate 18 /min Alena Abby DPM Work Phone: [facility] [place] 08-04-2024 09:58-0400 SaO2% (BldA) [Mass fraction] 95 % Alena Abby DPM Work Phone: [facility] [place] 08-04-2024 09:58-0400 Systolic blood pressure 138 mm[Hg] Alena Abby DPM Work Phone: [facility] [place] 07-31-2024 12:09-0400 Body temperature 97.7 [degF] Ana Rois RN [facility] [place] 07-31-2024 12:09-0400 Diastolic blood pressure 72 mm[Hg] Ana Rios RN [facility] [place] 07-31-2024 12:09-0400 Heart rate 60 /min Ana Rios RN [facility] [place] 07-31-2024 12:09-0400 Respiratory rate 20 /min Ana iRos RN [facility] [place] 07-31-2024 12:09-0400 SaO2% (BldA) [Mass fraction] 93 % Ana Rios RN [facility] [place] 07-31-2024 12:09-0400 Systolic blood pressure 140 mm[Hg] Ana Rios RN [facility] [place] 07-28-2024 10:34-0400 Body temperature 97.39 [degF] Alena [place] DPM Work Phone: [facility] [place] 07-28-2024 10:34-0400 Diastolic blood pressure 63 mm[Hg] Alena Abby DPM Work Phone: [facility] [place] 07-28-2024 10:34-0400 Heart rate 73 /min Alena Abby DPM Work Phone: [facility] [place] 07-28-2024 10:34-0400 Respiratory rate 18 /min Alena [place] DPM Work Phone: [facility] [place] 07-28-2024 10:34-0400 SaO2% (BldA) [Mass fraction] 92 % Alena [place] DPM Work Phone: [facility] [place] 07-28-2024 10:34-0400 Systolic blood pressure 123 mm[Hg] Alena Abby DPM Work Phone: [facility] [place] 07-24-2024 08:53-0400 Body height 180.3 cm Jace Oberhauser DO Work Phone: [facility] 07-24-2024 08:53-0400 Diastolic blood pressure 68 mm[Hg] Jace Oberhauser DO Work Phone: [facility] 07-24-2024 08:53-0400 Heart rate 72 /min Jace Oberhauser DO Work Phone: [facility] 07-24-2024 08:53-0400 SaO2% (BldA) [Mass fraction] 89 % Jace Oberhauser DO Work Phone: [facility] Comment on above: 84-89% 07-24-2024 08:53-0400 Systolic blood pressure 132 mm[Hg] Jace Oberhauser DO Work Phone: [facility] 07-14-2024 09:46-0400 Body temperature 97.59 [degF] Alena [place] DPM Work Phone: [facility] [place] 07-14-2024 09:46-0400 Diastolic blood pressure 81 mm[Hg] Alena Abby DPM Work Phone: [facility] [place] 07-14-2024 09:46-0400 Heart rate 88 /min Alena Abby DPM Work Phone: [facility] [place] 07-14-2024 09:46-0400 Respiratory rate 18 /min Alena [place] DPM Work Phone: [facility] [place] 07-14-2024 09:46-0400 SaO2% (BldA) [Mass fraction] 92 % Alena [place] DPM Work Phone: [facility] [place] 07-14-2024 09:46-0400 Systolic blood pressure 160 mm[Hg] Alena [place] DPM Work Phone: [facility] [place] 07-10-2024 11:44-0400 Body height 180.3 cm Jace Oberhauser DO Work Phone: [facility] 07-10-2024 11:44-0400 Diastolic blood pressure 80 mm[Hg] Jace Oberhauser DO Work Phone: [facility] 07-10-2024 11:44-0400 Heart rate 83 /min Jace Oberhauser DO Work Phone: [facility] 07-10-2024 11:44-0400 Systolic blood pressure 140 mm[Hg] Jace Oberhauser DO Work Phone: [facility] 07-01-2024 13:05-0400 Body temperature 97.3 [degF] Lupe Snow RN [facility] [place] 07-01-2024 13:05-0400 Diastolic blood pressure 78 mm[Hg] Lupe Snow RN [facility] [place] 07-01-2024 13:05-0400 Heart rate 80 /min Lupe Snow RN [facility] [place] 07-01-2024 13:05-0400 Respiratory rate 16 /min Lupe Snow RN [facility] [place] 07-01-2024 13:05-0400 SaO2% (BldA) [Mass fraction] 97 % Lupe Snow RN [facility] [place] 07-01-2024 13:05-0400 Systolic blood pressure 124 mm[Hg] Lupe Snow RN [facility] [place] 06-23-2024 10:07-0400 Body height 180.3 cm Alena Abby DPM Work Phone: [facility] [place] 06-23-2024 10:07-0400 Body mass index (BMI) [Ratio] 39.05 kg/m2 Alena [place] DPM Work Phone: [facility] [place] 06-23-2024 10:07-040 Body weight 127.01 kg Alena Abby DPM Work Phone: [facility] [place] 06-21-2024 10:51-0400 Body height 180.3 cm Jace Oberhauser DO Work Phone: [facility] 06-21-2024 10:51-0400 Body mass index (BMI) [Ratio] 40.73 kg/m2 Jace Oberhauser DO Work Phone: [facility] 06-21-2024 10:51-0400 Body weight 132.45 kg Jace Oberhauser DO Work Phone: [facility] 06-21-2024 10:51-0400 Diastolic blood pressure 60 mm[Hg] Jace Oberhauser DO Work Phone: [facility] 06-21-2024 10:51-0400 Heart rate 80 /min Jace Oberhauser DO Work Phone: [facility] 06-21-2024 10:51-0400 Systolic blood pressure 101 mm[Hg] Jace Oberhauser DO Work Phone: [facility] 06-06-2024 13:16-0400 Body temperature 98.29 [degF] Alena [place] DPM Work Phone: [facility] [place] 06-06-2024 13:16-0400 Diastolic blood pressure 78 mm[Hg] Alena [place] DPM Work Phone: [facility] [place] 06-06-2024 13:16-0400 Heart rate 70 /min Alena [place] DPM Work Phone: [facility] [place] 06-06-2024 13:16-0400 Systolic blood pressure 139 mm[Hg] Alena Mora DPM Work Phone: [facility] [place] 04-17-2024 10:06-0400 Body height 180.3 cm Jace Oberhauser DO Work Phone: [facility] 04-17-2024 10:06-0400 Body mass index (BMI) [Ratio] 39.05 kg/m2 Jace Oberhauser DO Work Phone: [facility] 04-17-2024 10:06-0400 Body weight 127.01 kg Jace Oberhauser DO Work Phone: [facility] 04-17-2024 10:06-0400 Diastolic blood pressure 81 mm[Hg] Jace Oberhauser DO Work Phone: [facility] 04-17-2024 10:06-0400 Heart rate 88 /min Jace Oberhauser DO Work Phone: [facility] 04-17-2024 10:06-0400 Systolic blood pressure 148 mm[Hg] Jace Oberhauser DO Work Phone: [facility] 04-11-2024 11:49-0400 Body temperature 98.2 [degF] Torie Domka DE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 Work Phone: [facility] [place] 04-11-2024 11:49-0400 Diastolic blood pressure 54 mm[Hg] Torie Domka DE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 Work Phone: [facility] [place] 04-11-2024 11:49-0400 Heart rate 80 /min Torie Domka DE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 Work Phone: [facility] [place] 04-11-2024 11:49-0400 Systolic blood pressure 132 mm[Hg] Torie Domka DE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 Work Phone: [facility] [place] 01-19-2024 13:21-0400 Body height 180.3 cm Jace Oberhauser DO Work Phone: [facility] 01-19-2024 13:21-0400 Body mass index (BMI) [Ratio] 36.54 kg/m2 Jace Oberhauser DO Work Phone: [facility] 01-19-2024 13:21-0400 Body weight 118.84 kg Jace Oberhauser DO Work Phone: [facility] 01-19-2024 13:21-0400 Diastolic blood pressure 71 mm[Hg] Jace Oberhauser DO Work Phone: [facility] 01-19-2024 13:21-0400 Heart rate 93 /min Jace Oberhauser DO Work Phone: [facility] 01-19-2024 13:21-0400 Systolic blood pressure 117 mm[Hg] Jace Oberhauser DO Work Phone: [facility] 01-04-2024 10:19-0400 Body temperature 98.49 [degF] Torie Domka DE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 Work Phone: [facility] [place] 01-04-2024 10:19-0400 Diastolic blood pressure 72 mm[Hg] Torie Domka DE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 Work Phone: [facility] [place] 01-04-2024 10:19-0400 Heart rate 90 /min Torie Domka DE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 Work Phone: [facility] [place] 01-04-2024 10:19-0400 Systolic blood pressure 152 mm[Hg] Torie Domka DE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 Work Phone: [facility] [place] 10-05-2023 09:42-0500 Body temperature 98.2 [degF] Torie Domka DE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 Work Phone: [facility] [place] 10-05-2023 09:42-0500 Diastolic blood pressure 76 mm[Hg] Torie Domka DE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 Work Phone: [facility] [place] 10-05-2023 09:42-0500 Heart rate 7 /min Torie Domka DE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 Work Phone: [facility] [place] 10-05-2023 09:42-0500 Systolic blood pressure 137 mm[Hg] Torie Domka DE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 Work Phone: [facility] [place] 06-21-2023 10:24-0400 Body temperature 98.1 [degF] Torie Domka DE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 Work Phone: [facility] [place] 06-21-2023 10:24-0400 Diastolic blood pressure 65 mm[Hg] Torie Domka DE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 Work Phone: [facility] [place] 06-21-2023 10:24-0400 Heart rate 74 /min Torie Brentonka DE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 Work Phone: [facility] [place] 06-21-2023 10:24-0400 Systolic blood pressure 115 mm[Hg] Torie Domka DE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 Work Phone: [facility] [place] 02-23-2023 09:16-0400 Body height 182.8 cm Michelle Thomae DO Work Phone: [facility] 02-23-2023 09:16-0400 Body mass index (BMI) [Ratio] 33.01 kg/m2 Michelle Thomae DO Work Phone: [facility] 02-23-2023 09:16-0400 Body weight 110.3 kg Michelle Thomae DO Work Phone: [facility] 01-04-2023 10:51-0400 Body height 182.8 cm Michelle Thomae DO Work Phone: [facility] 01-04-2023 10:51-0400 Body mass index (BMI) [Ratio] 34.06 kg/m2 Michelle Thomae DO Work Phone: [facility] 01-04-2023 10:51-0400 Body weight 113.8 kg Michelle Thomae DO Work Phone: [facility] 12-14-2022 10:03-0400 Body temperature 98.49 [degF] Torie Brentonka DE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 Work Phone: [facility] [place] 12-14-2022 10:03-0400 Diastolic blood pressure 58 mm[Hg] Torie Domka DE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 Work Phone: [facility] [place] 12-14-2022 10:03-0400 Heart rate 82 /min Torie Domka DE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 Work Phone: [facility] [place] 12-14-2022 10:03-0400 Systolic blood pressure 102 mm[Hg] Torie Domka DE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 Work Phone: [facility] [place] 09-14-2022 10:03-0500 Body temperature 98.1 [degF] Torie Domka DE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 Work Phone: [facility] [place] 09-14-2022 10:03-0500 Diastolic blood pressure 65 mm[Hg] Torie Domka DE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 Work Phone: [facility] [place] 09-14-2022 10:03-0500 Heart rate 80 /min Torie Domka DE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 Work Phone: [facility] [place] 09-14-2022 10:03-0500 Systolic blood pressure 103 mm[Hg] Torie Domka DE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 Work Phone: [facility] [place] 06-11-2022 09:25-0400 Body temperature 97.2 [degF] Torie Domka DE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 Work Phone: [facility] [place] 06-11-2022 09:25-0400 Diastolic blood pressure 66 mm[Hg] Torie Domka DE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 Work Phone: [facility] [place] 06-11-2022 09:25-0400 Heart rate 69 /min Torie Domka DE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 Work Phone: [facility] [place] 06-11-2022 09:25-0400 Systolic blood pressure 123 mm[Hg] Torie Domka DE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 Work Phone: [facility] [place] 05-27-2022 14:05-0400 Body height 180.34 cm Rohit Aguilar Work Phone: [facility] Work Phone: 05-27-2022 14:05-0400 Body mass index (BMI) [Ratio] 34.45 kg/m2 Rohit Aguilar Work Phone: [facility] Work Phone: 05-27-2022 14:05-0400 Body surface area Derived from formula 2.31 m2 Rohit Aguilar Work Phone: [facility] Work Phone: 05-27-2022 14:05-0400 Body weight 112.04 kg Rohit Aguilar Work Phone: [facility] Work Phone: 05-27-2022 14:05-0400 Respiratory rate 16 /min Rohit Aguilar Work Phone: [facility] Work Phone: 04-01-2022 10:06-0400 Body temperature 97 [degF] Alena [place] DPM Work Phone: [facility] [place] 04-01-2022 10:06-0400 Diastolic blood pressure 49 mm[Hg] Alena Abby DPM Work Phone: [facility] [place] 04-01-2022 10:06-0400 Heart rate 59 /min Alena [place] DPM Work Phone: [facility] [place] 04-01-2022 10:06-0400 Systolic blood pressure 102 mm[Hg] Alena Abby DPM Work Phone: [facility] [place] 03-04-2022 10:27-0400 Body temperature 97.3 [degF] Alena [place] DPM Work Phone: [facility] [place] 03-04-2022 10:27-0400 Diastolic blood pressure 87 mm[Hg] Alena Abby DPM Work Phone: [facility] [place] 03-04-2022 10:27-0400 Heart rate 72 /min Alena [place] DPM Work Phone: [facility] [place] 03-04-2022 10:27-0400 Systolic blood pressure 138 mm[Hg] Alena Abby DPM Work Phone: [facility] [place] 12-25-2021 08:52-0400 Body height 180.[address] Rohit Aguilar Work Phone: [facility] Work Phone: 12-25-2021 08:52-0400 Body weight 110.[address] Rohit Aguilar Work Phone: [facility] Work Phone: 12-25-2021 08:52-0400 Diastolic blood pressure 72 mm[Hg] Dr. Rohit Aguilar Work Phone: [facility] Work Phone: 12-25-2021 08:52-0400 Heart rate 60 /min Dr. Rohit Aguilar Work Phone: [facility] Work Phone: 12-25-2021 08:52-0400 Respiratory rate 16 /min Dr. Rohit Aguilar Work Phone: [facility] Work Phone: 12-25-2021 08:52-0400 SaO2% (BldA) [Mass fraction] 98 % Dr. Rohit Aguilar Work Phone: [facility] Work Phone: 12-25-2021 08:52-0400 Systolic blood pressure 126 mm[Hg] Dr. Rohit Aguilar Work Phone: [facility] Work Phone: 11-12-2021 10:11-0500 Diastolic blood pressure 56 mm[Hg] Alena [place] DPM Work Phone: [facility] [place] 11-12-2021 10:11-0500 Heart rate 65 /min Alena Abby DPM Work Phone: [facility] [place] 11-12-2021 10:11-0500 Systolic blood pressure 89 mm[Hg] Alena [place] DPM Work Phone: [facility] [place] 11-12-2021 10:09-0500 Body temperature 98.1 [degF] Alena Abby DPM Work Phone: [facility] [place] 10-09-2021 10:40-0500 Body temperature 97.7 [degF] Alena Abby DPM Work Phone: [facility] [place] 10-09-2021 10:40-0500 Diastolic blood pressure 57 mm[Hg] Alena [place] DPM Work Phone: [facility] [place] 10-09-2021 10:40-0500 Heart rate 73 /min Alena Abby DPM Work Phone: [facility] [place] 10-09-2021 10:40-0500 Systolic blood pressure 107 mm[Hg] Alena [place] DPM Work Phone: [facility] [place] 09-10-2021 10:57-0500 Body temperature 97.2 [degF] Alena [place] DPM Work Phone: [facility] [place] 09-10-2021 10:57-0500 Diastolic blood pressure 63 mm[Hg] Alena Abby DPM Work Phone: [facility] [place] 09-10-2021 10:57-0500 Heart rate 82 /min Alena [place] DPM Work Phone: [facility] [place] 09-10-2021 10:57-0500 Systolic blood pressure 132 mm[Hg] Alena [place] DPM Work Phone: [facility] [place] 09-03-2021 10:15-0500 Body temperature 97.81 [degF] Alena [place] DPM Work Phone: [facility] [place] 09-03-2021 10:15-0500 Diastolic blood pressure 71 mm[Hg] Alena Abby DPM Work Phone: [facility] [place] 09-03-2021 10:15-0500 Heart rate 76 /min Alena [place] DPM Work Phone: [facility] [place] 09-03-2021 10:15-0500 Systolic blood pressure 121 mm[Hg] Alena Abby DPM Work Phone: [facility] [place] 08-27-2021 10:43-0500 Body temperature 97.7 [degF] Alena Abby DPM Work Phone: [facility] [place] 08-27-2021 10:43-0500 Diastolic blood pressure 68 mm[Hg] Alena [place] DPM Work Phone: [facility] [place] 08-27-2021 10:43-0500 Heart rate 93 /min Alena Abby DPM Work Phone: [facility] [place] 08-27-2021 10:43-0500 Systolic blood pressure 118 mm[Hg] Alena Abby DPM Work Phone: [facility] [place] 08-20-2021 09:00-0500 Body temperature 98.4 [degF] Alena [place] DPM Work Phone: [facility] [place] 08-20-2021 09:00-0500 Diastolic blood pressure 73 mm[Hg] Alena [place] DPM Work Phone: [facility] [place] 08-20-2021 09:00-0500 Heart rate 82 /min Alena [place] DPM Work Phone: [facility] [place] 08-20-2021 09:00-0500 Systolic blood pressure 109 mm[Hg] Alena Abby DPM Work Phone: [facility] [place] 07-09-2021 08:34-0400 Body height 182.9 cm Alena [place] DPM Work Phone: [facility] [place] 07-09-2021 08:34-0400 Body mass index (BMI) [Ratio] 33.91 kg/m2 Alena Abby DPM Work Phone: [facility] [place] 07-09-2021 08:34-0400 Body temperature 97.7 [degF] Alena Abby DPM Work Phone: [facility] [place] 07-09-2021 08:34-0400 Body weight 113.4 kg Alena Abby DPM Work Phone: [facility] [place] 07-09-2021 08:34-0400 Diastolic blood pressure 54 mm[Hg] Alena [place] DPM Work Phone: [facility] [place] 07-09-2021 08:34-0400 Heart rate 76 /min Alena [place] DPM Work Phone: [facility] [place] 07-09-2021 08:34-0400 Systolic blood pressure 93 mm[Hg] Alena Abby DPM Work Phone: [facility] [place] 03-31-2021 08:37-0400 Body mass index (BMI) [Ratio] 35.1 kg/m2 Dr. Rohit Aguilar Work Phone: [facility] Work Phone: 03-10-2021 08:24-0400 Body height 180.34 cm Rohit Aguilar Work Phone: [facility] Work Phone: 03-10-2021 08:24-0400 Body mass index (BMI) [Ratio] 35.01 kg/m2 Rohit Aguilar Work Phone: [facility] Work Phone: 03-10-2021 08:24-0400 Body surface area Derived from formula 2.32 m2 Rohit Aguilar Work Phone: [facility]im[facility] Work Phone: 03-10-2021 08:24-0400 Body weight 113.85 kg Rohit Aguilar Work Phone: [facility]ish[facility]Old[facility] Work Phone: 03-10-2021 08:24-0400 Diastolic blood pressure 73 mm[Hg] Rohit Aguilar Work Phone: [facility] Work Phone: 03-10-2021 08:24-0400 Heart rate 85 /min Rohit Aguilar Work Phone: [facility]Ox[facility]nl[facility]xc[facility] Work Phone: 03-10-2021 08:24-0400 Systolic blood pressure 95 mm[Hg] Rohit Aguilar Work Phone: [facility]Ccjv[facility] Work Phone: 01-16-2021 10:31-0400 BMI (Body Mass Index) 35.01 kg/m2 Prity Shannan [facility] [place] 01-16-2021 10:31-0400 Body Temperature 98.29 [degF] Prity Shannan [facility] [place] 01-16-2021 10:31-0400 Body weight 113.85 kg Prity Shannan [facility] [place] 01-16-2021 10:31-0400 BP Diastolic 84 mm[Hg] Prity Shannan [facility] [place] 01-16-2021 10:31-0400 BP Systolic 157 mm[Hg] Prity Shannan [facility] [place] 01-16-2021 10:31-0400 [facility]-16-2021 10:31-0400 Pulse (Heart Rate) 74 /min Prity Shannan [facility] 01-16-2021 10:31-0400 Pulse Oximetry 93 % Prijamie Awad [facility] 01-08-2021 17:36-0400 Body height 182.9 cm Alena Abby DPM Work Phone: [facility] 01-08-2021 17:36-0400 Body mass index (BMI) [Ratio] 38.65 kg/m2 Alena [place] DPM Work Phone: [facility] 01-08-2021 17:36-0400 Body weight 129.28 kg Alena [place] DPM Work Phone: [facility] 10-18-2020 07:51-0500 BMI (Body Mass Index) 35.43 kg/m2 Prity Shannan [facility] 10-18-2020 07:51-0500 Body weight 115.21 kg Prity Shannan [facility] 10-18-2020 07:51-0500 Height 180.3 cm [facility] 10-18-2020 07:49-0500 Body Temperature 98.29 [degF] Prity Shannan [facility] 10-18-2020 07:49-0500 BP Diastolic 82 mm[Hg] Prity Shannan [facility] 10-18-2020 07:49-0500 BP Systolic 146 mm[Hg] Prity Shannan [facility] 10-18-2020 07:49-0500 Pulse (Heart Rate) 84 /min Prity Shannan [facility] 10-18-2020 07:49-0500 Pulse Oximetry 97 % Prity Shannan [facility] 10-18-2020 07:49-0500 Respiratory Rate 18 /min Prity Shannan [facility] 09-06-2020 08:05-0500 BP Diastolic 77 mm[Hg] Prity Shannan [facility] 09-06-2020 08:05-0500 BP Systolic 162 mm[Hg] Prity Shannan [facility] 09-06-2020 08:04-0500 Body Temperature 98.2 [degF] Prity Shannan [facility] 09-06-2020 08:04-0500 Pulse (Heart Rate) 79 /min Prity Shannan [facility] 09-06-2020 08:04-0500 Pulse Oximetry 98 % Prity Shannan [facility] 09-06-2020 08:04-0500 Respiratory Rate 16 /min Prity Shannan [facility] 08-23-2020 07:46-0500 Body Temperature 97.9 [degF] Prity Shannan [facility] 08-23-2020 07:46-0500 BP Diastolic 75 mm[Hg] Prity Shannan [facility] 08-23-2020 07:46-0500 BP Systolic 123 mm[Hg] Prity Shannan [facility] 08-23-2020 07:46-0500 Pulse (Heart Rate) 96 /min Prity Shannan [facility] 08-23-2020 07:46-0500 Pulse Oximetry 95 % Prity Shannan [facility] 08-23-2020 07:46-0500 Respiratory Rate 18 /min Prity Shannan [facility] 08-09-2020 07:40-0500 Body Temperature 98.1 [degF] Prity Shannan [facility] 08-09-2020 07:40-0500 BP Diastolic 82 mm[Hg] Prity Shannan [facility] 08-09-2020 07:40-0500 BP Systolic 136 mm[Hg] Prity Shannan [facility] 08-09-2020 07:40-0500 Pulse (Heart Rate) 84 /min Prity Shannan [facility] 08-09-2020 07:40-0500 Pulse Oximetry 97 % Prity Shannan [facility] 08-09-2020 07:40-0500 Respiratory Rate 16 /min Prijamie Awad [facility] 08-02-2020 07:42-0400 Body Temperature 97.39 [degF] Prity Shannan [facility] 08-02-2020 07:42-0400 BP Diastolic 64 mm[Hg] Prity Shannan [facility] 08-02-2020 07:42-0400 BP Systolic 124 mm[Hg] Prity Shannan [facility] 08-02-2020 07:42-0400 Pulse (Heart Rate) 97 /min Maria Isabel Awad [facility] 08-02-2020 07:42-0400 Pulse Oximetry 90 % Maria Isabel Awad [facility] 08-02-2020 07:42-0400 Respiratory Rate 16 /min Maria Isabel Awad [facility] 07-12-2020 08:10-0400 Body Temperature 98.49 [degF] Maria Isabel Awad [facility] 07-12-2020 08:10-0400 BP Diastolic 71 mm[Hg] Maria Isabel Awad [facility] 07-12-2020 08:10-0400 BP Systolic 121 mm[Hg] Maria Isabel Awad [facility] 07-12-2020 08:10-0400 Pulse (Heart Rate) 65 /min Maria Isabel Awad [facility] 07-12-2020 08:10-0400 Pulse Oximetry 98 % Maria Isabel Awad [facility] 07-12-2020 08:10-0400 Respiratory Rate 18 /min Prijamie Awad [facility] 07-05-2020 08:23-0400 Body Temperature 98.2 [degF] Alena [place] [facility] 07-05-2020 08:23-0400 BP Diastolic 73 mm[Hg] Alena Abby [facility] 07-05-2020 08:23-0400 BP Systolic 125 mm[Hg] Aelna [place] [facility] 07-05-2020 08:23-0400 Pulse (Heart Rate) 74 /min Alena [place] [facility] 07-05-2020 08:23-0400 Pulse Oximetry 95 % Alena Mora [facility] 07-05-2020 08:23-0400 Respiratory Rate 18 /min Alena Mora [facility] 06-21-2020 07:54-0400 Body Temperature 98.01 [degF] Alena Mora [facility] 06-21-2020 07:54-0400 BP Diastolic 68 mm[Hg] Alena Mora [facility] 06-21-2020 07:54-0400 BP Systolic 137 mm[Hg] Alena Mora [facility] 06-21-2020 07:54-0400 Pulse (Heart Rate) 64 /min Alena Mora [facility] 06-21-2020 07:54-0400 Pulse Oximetry 97 % Alena Mora [facility] 06-21-2020 07:54-0400 Respiratory Rate 18 /min Alenadeanna Mora [facility] 06-07-2020 08:28-0400 Body Temperature 97.81 [degF] [facility]-07-2020 08:28-0400 BP Diastolic 77 mm[Hg] [facility] 06-07-2020 08:28-0400 BP Systolic 159 mm[Hg] [facility] 06-07-2020 08:28-0400 Pulse (Heart Rate) 59 /min [facility] 06-07-2020 08:28-0400 Pulse Oximetry 98 % [facility] 06-07-2020 08:28-0400 Respiratory Rate 18 /min Prity Shannan [facility] 05-24-2020 08:37-0400 Body Temperature 98.2 [degF] Prity Shannan [facility] 05-24-2020 08:37-0400 BP Diastolic 72 mm[Hg] Prity Shannan [facility] 05-24-2020 08:37-0400 BP Systolic 131 mm[Hg] Prity Shannan [facility] 05-24-2020 08:37-0400 Pulse (Heart Rate) 80 /min Prity Shannan [facility] 05-24-2020 08:37-0400 Pulse Oximetry 97 % Prity Shannan [facility] 05-24-2020 08:37-0400 Respiratory Rate 18 /min Prity Shannan [facility] 05-10-2020 07:54-0400 Body Temperature 97.81 [degF] Maria Isabel Awad [facility] 05-10-2020 07:54-0400 BP Diastolic 76 mm[Hg] Maria Isabel Awad [facility] 05-10-2020 07:54-0400 BP Systolic 151 mm[Hg] Maria Isabel Awad [facility] 05-10-2020 07:54-0400 Pulse (Heart Rate) 68 /min Maria Isabel Awad [facility] 05-10-2020 07:54-0400 Pulse Oximetry 100 % Maria Isabel Awad [facility] 05-10-2020 07:54-0400 Respiratory Rate 18 /min Maria Isabel Awad [facility] 05-03-2020 10:39-0400 Pulse Oximetry 91 % Alena Mora [facility] 05-03-2020 08:25-0400 Respiratory Rate 14 /min Alena Mora [facility] 05-03-2020 06:47-0400 Body Temperature 98.8 [degF] Alena [place] [facility] 05-03-2020 06:47-0400 BP Diastolic 59 mm[Hg] [facility]2020 06:47-0400 BP Systolic 105 mm[Hg] [facility] 05-03-2020 06:47-0400 Pulse (Heart Rate) 101 /min Alena [facility] 05-01-2020 11:52-0400 BMI (Body Mass Index) 35.48 kg/m2 [facility] 05-01-2020 11:52-0400 Body weight 115.4 kg [facility] 05-01-2020 11:52-0400 Height 180.3 cm [facility] 04-30-2020 17:37-0400 Diastolic blood pressure 85 mm[Hg] Alena Abby DPM Work Phone: [facility] 04-30-2020 17:37-0400 Systolic blood pressure 165 mm[Hg] Alena [place] DPM Work Phone: [facility] 04-26-2020 13:17-0400 Body Temperature 98.01 [degF] [facility]upur [facility] 04-26-2020 13:17-0400 BP Diastolic 75 mm[Hg] [facility]upur [facility] 04-26-2020 13:17-0400 BP Systolic 123 mm[Hg] [facility]up[facility] 04-26-2020 13:17-0400 Pulse (Heart Rate) 77 /min [facility]up[facility] 04-26-2020 13:17-0400 Pulse Oximetry 96 % [facility] 04-26-2020 13:17-0400 Respiratory Rate 16 /min [facility] 04-12-2020 13:10-0400 Body Temperature 97.3 [degF] [facility]up[facility] 04-12-2020 13:10-0400 BP Diastolic 72 mm[Hg] [facility]up[facility] 04-12-2020 13:10-0400 BP Systolic 160 mm[Hg] [facility]up[facility] 04-12-2020 13:10-0400 Pulse (Heart Rate) 75 /min [facility]up[facility] 04-12-2020 13:10-0400 Pulse Oximetry 97 % [facility] 04-12-2020 13:10-0400 Respiratory Rate 16 /min [facility]up[facility] 03-15-2020 08:38-0400 Body Temperature 98.29 [degF] [facility] 03-15-2020 08:38-0400 BP Diastolic 70 mm[Hg] [facility]up[facility] 03-15-2020 08:38-0400 BP Systolic 135 mm[Hg] [facility]up[facility] 03-15-2020 08:38-0400 Pulse (Heart Rate) 85 /min [facility]up[facility] 03-15-2020 08:38-0400 Pulse Oximetry 97 % [facility] 03-15-2020 08:38-0400 Respiratory Rate 16 /min [facility]up[facility] 03-04-2020 10:29-0400 Body Temperature 97.39 [degF] [facility] 03-04-2020 10:29-0400 BP Diastolic 82 mm[Hg] [facility] 03-04-2020 10:29-0400 BP Systolic 134 mm[Hg] [facility] 03-04-2020 10:29-0400 Pulse (Heart Rate) 74 /min [facility] 03-04-2020 10:29-0400 Pulse Oximetry 98 % [place] [facility] 03-01-2020 07:37-0400 Body Temperature 97.59 [degF] Maria Isabel Awad [facility] 03-01-2020 07:37-0400 BP Diastolic 71 mm[Hg] Maria Isabel Awad [facility] 03-01-2020 07:37-0400 BP Systolic 143 mm[Hg] Maria Isabel Awad [facility] 03-01-2020 07:37-0400 Pulse (Heart Rate) 86 /min Maria Isabel Awad [facility] 03-01-2020 07:37-0400 Respiratory Rate 16 /min Maria Isabel Awad [facility] 02-27-2020 09:00-0400 Body Temperature 97.5 [degF] Iona [facility] 02-27-2020 09:00-0400 BP Diastolic 82 mm[Hg] [facility] 02-27-2020 09:00-0400 BP Systolic 120 mm[Hg] Iona [facility] 02-27-2020 09:00-0400 Pulse (Heart Rate) 82 /min Iona [facility] 02-27-2020 09:00-0400 Pulse Oximetry 98 % Iona [facility] 02-23-2020 07:31-0400 Body Temperature 97.81 [degF] Maria Isabel Awad [facility] 02-23-2020 07:31-0400 BP Diastolic 85 mm[Hg] Maria Isabel Awad [facility] 02-23-2020 07:31-0400 BP Systolic 137 mm[Hg] Maria Isabel Awad [facility] 02-23-2020 07:31-0400 Pulse (Heart Rate) 96 /min [facility] 02-23-2020 07:31-0400 Pulse Oximetry 93 % [facility] 02-23-2020 07:31-0400 Respiratory Rate 18 /min Maria Isabel Awad [facility] 02-21-2020 09:33-0400 Body Temperature 97 [degF] [facility] 02-21-2020 09:33-0400 BP Diastolic 69 mm[Hg] [facility] 02-21-2020 09:33-0400 BP Systolic 114 mm[Hg] [facility] 02-21-2020 09:33-0400 Pulse (Heart Rate) 86 /min [place] [facility] 02-21-2020 09:33-0400 Pulse Oximetry 97 % [place] [facility] 02-19-2020 09:57-0400 Body Temperature 98.4 [degF] Ionaneva Workman [facility] 02-19-2020 09:57-0400 BP Diastolic 70 mm[Hg] Iona [facility] 02-19-2020 09:57-0400 BP Systolic 118 mm[Hg] [facility] 02-19-2020 09:57-0400 Pulse (Heart Rate) 78 /min Iona [facility] 02-19-2020 09:57-0400 Pulse Oximetry 96 % Iona [facility] 02-16-2020 08:40-0400 Body Temperature 97.59 [degF] Maria Isable Awad [facility] 02-16-2020 08:40-0400 BP Diastolic 78 mm[Hg] [facility] 02-16-2020 08:40-0400 BP Systolic 125 mm[Hg] [facility] 02-16-2020 08:40-0400 Pulse (Heart Rate) 84 /min [facility] Ruano[facility] 02-16-2020 08:40-0400 Pulse Oximetry 95 % Maria Isabel Awad [facility] 02-16-2020 08:40-0400 Respiratory Rate 18 /min Maria Isabel Awad [facility] 02-16-2020 08:06-0400 BMI (Body Mass Index) 35.57 kg/m2 [facility] 02-16-2020 08:06-0400 Body weight 115.67 kg [facility] 02-16-2020 08:06-0400 Height 180.3 cm [facility] 02-16-2020 08:02-0400 Body Temperature 97.59 [degF] [facility] 02-16-2020 08:02-0400 BP Diastolic 78 mm[Hg] [facility] 02-16-2020 08:02-0400 BP Systolic 125 mm[Hg] [facility] 08:02-0400 Pulse (Heart Rate) 84 /min [facility] 02-16-2020 08:02-0400 Pulse Oximetry 95 % [facility] 02-16-2020 08:02-0400 Respiratory Rate 18 /min Alenadeanna Mora [facility] 02-14-2020 10:15-0400 Body Temperature 97.3 [degF] [facility] 02-14-2020 10:15-0400 BP Diastolic 67 mm[Hg] [facility] 02-14-2020 10:15-0400 BP Systolic 108 mm[Hg] [facility] 02-14-2020 10:15-0400 Pulse (Heart Rate) 83 /min [facility] 02-14-2020 10:15-0400 Pulse Oximetry 98 % [facility] 02-12-2020 12:39-0400 Body Temperature 97.3 [degF] [facility] 02-12-2020 12:39-0400 BP Diastolic 73 mm[Hg] [facility] 02-12-2020 12:39-0400 BP Systolic 114 mm[Hg] [facility] 02-12-2020 12:39-0400 Pulse (Heart Rate) 82 /min [facility] 02-12-2020 12:39-0400 Pulse Oximetry 93 % [facility] 02-09-2020 07:24-0400 Body Temperature 97.7 [degF] [facility] 02-09-2020 07:24-0400 BP Diastolic 75 mm[Hg] [facility] 02-09-2020 07:24-0400 BP Systolic 120 mm[Hg] Alena [facility] 02-09-2020 07:24-0400 Pulse (Heart Rate) 80 /min [facility] 02-09-2020 07:24-0400 Pulse Oximetry 94 % [facility] 02-09-2020 07:24-0400 Respiratory Rate 18 /min Alena [facility] 02-07-2020 12:58-0400 Body Temperature 97.3 [degF] [facility] 02-07-2020 12:58-0400 BP Diastolic 91 mm[Hg] [facility] 02-07-2020 12:58-0400 BP Systolic 136 mm[Hg] [facility] [place] [facility] 02-07-2020 12:58-0400 Pulse (Heart Rate) 93 /min [facility] [place] [facility] 02-07-2020 12:58-0400 Pulse Oximetry 96 % [facility] 02-05-2020 16:09-0400 Body Temperature 96.6 [degF] [facility] 02-05-2020 16:09-0400 BP Diastolic 86 mm[Hg] [facility] 02-05-2020 16:09-0400 BP Systolic 166 mm[Hg] [facility] 02-05-2020 16:09-0400 Pulse (Heart Rate) 87 /min [facility] 02-05-2020 16:09-0400 Pulse Oximetry 96 % [facility] 01-29-2020 10:40-0400 Body Temperature 97.7 [degF] [facility] 01-29-2020 10:40-0400 BP Diastolic 84 mm[Hg] [facility] 01-29-2020 10:40-0400 BP Systolic 135 mm[Hg] [facility] 01-29-2020 10:40-0400 Pulse (Heart Rate) 86 /min [facility] 01-29-2020 10:40-0400 Pulse Oximetry 95 % [facility] 01-26-2020 08:05-0400 Body Temperature 97.2 [degF] [facility] 01-26-2020 08:05-0400 BP Diastolic 74 mm[Hg] [facility] 01-26-2020 08:05-0400 BP Systolic 110 mm[Hg] [facility] 01-26-2020 08:05-0400 Pulse (Heart Rate) 96 /min [facility] 01-26-2020 08:05-0400 Respiratory Rate 16 /min [facility] 01-22-2020 10:58-0400 Body Temperature 97.2 [degF] [facility] 01-22-2020 10:58-0400 BP Diastolic 91 mm[Hg] [facility] 01-22-2020 10:58-0400 BP Systolic 142 mm[Hg] [facility] [place] [facility] 01-22-2020 10:58-0400 Pulse (Heart Rate) 86 /min [facility] [place] [facility] 01-22-2020 10:58-0400 Pulse Oximetry 97 % [facility] [place] [facility] 01-19-2020 08:15-0400 Body Temperature 97.59 [degF] Prity Shannan [facility] 01-19-2020 08:15-0400 BP Diastolic 67 mm[Hg] Prity Shannan [facility] 01-19-2020 08:15-0400 BP Systolic 110 mm[Hg] Prity Shannan [facility] 01-19-2020 08:15-0400 Pulse (Heart Rate) 89 /min Prity Shannan [facility] 01-19-2020 08:15-0400 Respiratory Rate 16 /min Prity Shannan [facility] 01-15-2020 10:41-0400 Body Temperature 97.7 [degF] [facility] [place] [facility] 01-15-2020 10:41-0400 BP Diastolic 80 mm[Hg] [facility] [place] [facility] 01-15-2020 10:41-0400 BP Systolic 132 mm[Hg] [facility] [place] [facility] 01-15-2020 10:41-0400 Pulse (Heart Rate) 104 /min [facility] 01-15-2020 10:41-0400 Pulse Oximetry 98 % [facility] Roseann [facility] 01-12-2020 19:15-0400 Pulse (Heart Rate) 97 /min Delmy Ethel [facility] 01-12-2020 19:15-0400 Respiratory Rate 16 /min Delmy [place] [facility] 01-12-2020 07:39-0400 Body Temperature 97.5 [degF] Prity Shannan [facility] 01-12-2020 07:39-0400 BP Diastolic 83 mm[Hg] Prity Shannan [facility] 01-12-2020 07:39-0400 BP Systolic 136 mm[Hg] Prity Shannan [facility] 01-12-2020 07:39-0400 Pulse (Heart Rate) 102 /min Prity Shannan [facility] 01-12-2020 07:39-0400 Pulse Oximetry 93 % Prity Shannan [facility] 01-12-2020 07:39-0400 Respiratory Rate 18 /min Maria Isabel Awad [facility] 01-08-2020 15:27-0400 Body Temperature 97 [degF] Kylie Iglesias [facility] 01-08-2020 15:27-0400 BP Diastolic 80 mm[Hg] [facility]-2020 15:27-0400 BP Systolic 140 mm[Hg] [facility] 01-08-2020 15:27-0400 Pulse (Heart Rate) 68 /min Kylie [facility] 01-08-2020 15:27-0400 Pulse Oximetry 97 % [facility] 01-08-2020 15:27-0400 Respiratory Rate 16 /min Kylie [facility] 01-08-2020 12:20-0400 Body Temperature 98.01 [degF] Ronal Parish [facility] 01-08-2020 12:20-0400 BP Diastolic 76 mm[Hg] Ronal Parish [facility] 01-08-2020 12:20-0400 BP Systolic 134 mm[Hg] Ronal Parish [facility] 01-08-2020 12:20-0400 Pulse (Heart Rate) 92 /min Ronal Parish [facility] 01-08-2020 12:20-0400 Pulse Oximetry 95 % Ronal Parish [facility] 01-08-2020 12:20-0400 Respiratory Rate 15 /min Ronal Parish [facility] 01-05-2020 13:11-0400 Body Temperature 97.5 [degF] Alena Mora [facility] 01-05-2020 13:11-0400 BP Diastolic 74 mm[Hg] [facility] 01-05-2020 13:11-0400 BP Systolic 119 mm[Hg] [facility] 01-05-2020 13:11-0400 Pulse (Heart Rate) 73 /min Alena [facility] 01-05-2020 13:11-0400 Pulse Oximetry 95 % [facility] 01-05-2020 13:11-0400 Respiratory Rate 16 /min Alenadeanna Mora [facility] 01-05-2020 09:44-0400 Body Temperature 97.81 [degF] Ionaneva Workman [facility] 01-05-2020 09:44-0400 BP Diastolic 70 mm[Hg] Iona Workman [facility] 01-05-2020 09:44-0400 BP Systolic 122 mm[Hg] Iona Workman [facility] 01-05-2020 09:44-0400 Pulse (Heart Rate) 82 /min Iona Workman [facility] 01-05-2020 09:44-0400 Pulse Oximetry 97 % Iona Workman [facility] 01-04-2020 09:44-0400 Body Temperature 97.3 [degF] Katie Denton [facility] 01-04-2020 09:44-0400 BP Diastolic 73 mm[Hg] [facility] 01-04-2020 09:44-0400 BP Systolic 121 mm[Hg] Katie Denton [facility] 01-04-2020 09:44-0400 Pulse (Heart Rate) 86 /min Katierosa Denton [facility] 01-04-2020 09:44-0400 Respiratory Rate 16 /min Katierosa Denton [facility] 01-03-2020 13:35-0400 BMI (Body Mass Index) 39.75 kg/m2 Dean Izquierdo II NT-Txybjlq-Gyisepg Work Phone: 01-03-2020 13:35-0400 Body weight 129.28 kg Dean Izquierdo II HZ-Hmjbdib-Ajezi nd Work Phone: 01-03-2020 13:35-0400 BP Diastolic 68 mm[Hg] Dean Izquierdo II AU-Rkfvooh-Hlioo nd Work Phone: 01-03-2020 13:35-0400 BP Systolic 133 mm[Hg] Dean Izquierdo II PW-Pmshvfh-Hgass nd Work Phone: 01-03-2020 13:35-0400 BSA (Body Surface Area) 2.45 m2 Dean Izquierdo II GY-Vylvdbv-Ecbjwam Work Phone: 01-03-2020 13:35-0400 Height 180.34 cm Dean Izquierdo II MB-Lgzwcjp-Apvxe nd Work Phone: 01-03-2020 13:35-0400 Pulse (Heart Rate) 86 /min Dean Izquierdo II DQ-Obkhoyu-Kx hland Work Phone: 01-02-2020 13:43-0400 Body Temperature 97.3 [degF] [facility] 01-02-2020 13:43-0400 BP Diastolic 90 mm[Hg] [facility] 01-02-2020 13:43-0400 BP Systolic 150 mm[Hg] [facility] 01-02-2020 13:43-0400 Pulse (Heart Rate) 65 /min [facility] 01-02-2020 13:43-0400 Pulse Oximetry 98 % [facility] 01-02-2020 13:43-0400 Respiratory Rate 16 /min [facility] 01-01-2020 10:47-0400 Body Temperature 96.91 [degF] [facility] 01-01-2020 10:47-0400 BP Diastolic 70 mm[Hg] [facility] 01-01-2020 10:47-0400 BP Systolic 115 mm[Hg] [facility] 01-01-2020 10:47-0400 Pulse (Heart Rate) 85 /min [facility] 01-01-2020 10:47-0400 Pulse Oximetry 92 % [facility] 01-01-2020 10:47-0400 Respiratory Rate 18 /min [facility] 12-29-2019 10:42-0400 Body Temperature 97.7 [degF] [facility] 12-29-2019 10:42-0400 BP Diastolic 72 mm[Hg] [facility] 12-29-2019 10:42-0400 BP Systolic 118 mm[Hg] [facility] 12-29-2019 10:42-0400 Pulse (Heart Rate) 91 /min [facility] 12-29-2019 10:42-0400 Pulse Oximetry 96 % [facility] 12-28-2019 08:03-0400 Body Temperature 98.29 [degF] Maria Isabel Awad [facility] 12-28-2019 08:03-0400 BP Diastolic 78 mm[Hg] Prity Shannan [facility] 12-28-2019 08:03-0400 BP Systolic 142 mm[Hg] Prity Shannan [facility] 12-28-2019 08:03-0400 Pulse (Heart Rate) 78 /min Prity Shannan [facility] 12-28-2019 08:03-0400 Pulse Oximetry 90 % Maria Isabel Awad [facility] 12-28-2019 08:03-0400 Respiratory Rate 18 /min Maria Isabel Awad [facility] 12-27-2019 10:16-0400 Body Temperature 97.5 [degF] [facility] 12-27-2019 10:16-0400 BP Diastolic 67 mm[Hg] [facility] 12-27-2019 10:16-0400 BP Systolic 106 mm[Hg] [facility] 12-27-2019 10:16-0400 Pulse (Heart Rate) 77 /min [facility] 12-27-2019 10:16-0400 Pulse Oximetry 98 % [facility] 12-26-2019 13:37-0400 Body Temperature 97.81 [degF] [facility] 12-26-2019 13:37-0400 BP Diastolic 88 mm[Hg] [facility] 12-26-2019 13:37-0400 BP Systolic 132 mm[Hg] [facility] 12-26-2019 13:37-0400 Pulse (Heart Rate) 71 /min [facility] 12-26-2019 13:37-0400 Pulse Oximetry 99 % [facility] 12-26-2019 12:53-0400 Body Temperature 98.2 [degF] [facility] 12-26-2019 12:53-0400 BP Diastolic 88 mm[Hg] [facility] 12-26-2019 12:53-0400 BP Systolic 135 mm[Hg] [facility] 12-26-2019 12:53-0400 Pulse (Heart Rate) 72 /min [facility] 12-26-2019 12:53-0400 Pulse Oximetry 99 % [facility] 12-26-2019 12:53-0400 Respiratory Rate 16 /min [facility] 12-25-2019 10:20-0400 Body Temperature 97.2 [degF] [facility] 12-25-2019 10:20-0400 BP Diastolic 78 mm[Hg] [facility] 12-25-2019 10:20-0400 BP Systolic 140 mm[Hg] River Whitfield [facility] 12-25-2019 10:20-0400 Pulse (Heart Rate) 65 /min [facility] 12-25-2019 10:20-0400 Pulse Oximetry 97 % River Whitfield [facility] 12-22-2019 10:00-0400 BP Diastolic 50 mm[Hg] [facility] 12-22-2019 09:52-0400 Body Temperature 97.2 [degF] Katie Denton [facility] 12-22-2019 09:52-0400 BP Diastolic 80 mm[Hg] Katie Denton [facility] 12-22-2019 09:52-0400 BP Systolic 102 mm[Hg] Katie Denton [facility] 12-22-2019 09:52-0400 Pulse (Heart Rate) 79 /min Katierosa Denton [facility] 12-22-2019 09:52-0400 Pulse Oximetry 94 % Katierosa Denton [facility] 12-22-2019 09:52-0400 Respiratory Rate 18 /min Katierosa Denton [facility] 12-21-2019 07:51-0400 Body Temperature 97.39 [degF] [facility] 07:51-0400 BP Diastolic 76 mm[Hg] Maria Isabel Awad [facility] 12-21-2019 07:51-0400 BP Systolic 124 mm[Hg] Maria Isabel Awad [facility] 12-21-2019 07:51-0400 Pulse (Heart Rate) 79 /min [facility] 12-21-2019 07:51-0400 Pulse Oximetry 96 % Maria Isabel Awad [facility] 12-21-2019 07:51-0400 Respiratory Rate 16 /min Maria Isabel Awad [facility] 12-20-2019 15:43-0400 Body Temperature 97.39 [degF] Kylie Iglesias [facility] 12-20-2019 15:43-0400 BP Diastolic 70 mm[Hg] Kylie Iglesias [facility] 12-20-2019 15:43-0400 BP Systolic 135 mm[Hg] [facility] 15:43-0400 Pulse (Heart Rate) 70 /min [facility] 12-20-2019 15:43-0400 Pulse Oximetry 98 % [facility] 12-20-2019 15:43-0400 Respiratory Rate 16 /min Kylie Iglesias [facility] 12-20-2019 10:03-0400 Body Temperature 97.5 [degF] River Whitfield [facility] 12-20-2019 10:03-0400 BP Diastolic 64 mm[Hg] [facility] 12-20-2019 10:03-0400 BP Systolic 118 mm[Hg] [facility] 12-20-2019 10:03-0400 Pulse (Heart Rate) 57 /min [facility] 12-20-2019 10:03-0400 Pulse Oximetry 94 % [facility] 12-19-2019 17:30-0400 Respiratory Rate 18 /min Celia Kovacs [facility] 12-18-2019 19:01-0400 Respiratory Rate 14 /min Sinai Lopez [facility] 12-18-2019 18:45-0400 Body Temperature 98.49 [degF] Sinai Lopez [facility] 12-18-2019 18:45-0400 BP Diastolic 78 mm[Hg] Sinaijody Lopez [facility] 12-18-2019 18:45-0400 BP Systolic 126 mm[Hg] Sinai Lopez [facility] 12-18-2019 18:45-0400 Pulse (Heart Rate) 86 /min Sinai Lopez [facility] 12-18-2019 18:45-0400 Pulse Oximetry 96 % Sinai Lopez [facility] 12-17-2019 05:00-0400 BMI (Body Mass Index) 35.67 kg/m2 Sinai Lopez [facility] 12-17-2019 05:00-0400 Body weight 116 kg Sinai Lopez [facility] 12-12-2019 08:39-0400 Height 180.3 cm Sinai Lopez [facility] 12-06-2019 11:43-0500 Body Temperature 98.01 [degF] enedina [facility] 12-06-2019 11:43-0500 BP Diastolic 82 mm[Hg] [facility] 12-06-2019 11:43-0500 BP Systolic 140 mm[Hg] [facility] 12-06-2019 11:43-0500 Pulse (Heart Rate) 69 /min [facility] 12-06-2019 11:43-0500 Pulse Oximetry 93 % [facility] 12-06-2019 11:43-0500 Respiratory Rate 16 /min [facility] 11-30-2019 11:14-0500 BMI (Body Mass Index) 39.36 kg/m2 [facility] 11-30-2019 11:14-05[address] Body [address] [facility] 11-30-2019 11:14-[address] [facility] 11-30-2019 08:12-0500 Body Temperature 97.9 [degF] [facility] 11-30-2019 08:12-0500 BP Diastolic 68 mm[Hg] [facility] 11-30-2019 08:12-0500 BP Systolic 133 mm[Hg] [facility] 11-30-2019 08:12-0500 Pulse (Heart Rate) 73 /min [facility] 11-30-2019 08:12-0500 Pulse Oximetry 92 % [facility] 11-30-2019 08:12-0500 Respiratory Rate 18 /min [facility] 11-24-2019 15:41-0500 Body Temperature 98.01 [degF] [facility] 11-24-2019 15:41-0500 BP Diastolic 65 mm[Hg] [facility] 11-24-2019 15:41-0500 BP Systolic 102 mm[Hg] [facility] 11-24-2019 15:41-0500 Pulse (Heart Rate) 89 /min [facility] 11-24-2019 15:41-0500 Pulse Oximetry 96 % [facility] 11-24-2019 15:41-0500 Respiratory Rate 14 /min [facility] 11-23-2019 16:19-0500 Systolic blood pressure [facility] 11-20-2019 11:07-0500 BMI (Body Mass Index) 39.79 kg/m2 [facility] 11-20-2019 11:07-0500 Body weight 129.4 kg [facility] 11-20-2019 11:07-0500 Height 180.3 cm [facility] 11-10-2019 14:22-0500 BMI (Body Mass Index) 39.75 kg/m2 [facility] 11-10-2019 14:22-0500 Body weight 129.28 kg [facility] 11-10-2019 14:22-0500 BP Diastolic 95 mm[Hg] Room [facility] 11-10-2019 14:22-0500 BP Systolic 176 mm[Hg] Room [facility] 11-10-2019 14:22-0500 Height 180.3 cm Room [facility] 11-10-2019 14:22-0500 Pulse (Heart Rate) 85 /min Room [facility] 11-10-2019 14:22-0500 Pulse Oximetry 92 % [facility] 11-10-2019 13:29-0500 Body Temperature 98.71 [degF] [facility] 11-10-2019 13:29-0500 BP Diastolic 71 mm[Hg] [facility] 11-10-2019 13:29-0500 BP Systolic 153 mm[Hg] [facility] 11-10-2019 13:29-0500 Pulse (Heart Rate) 79 /min [facility] 11-10-2019 13:29-0500 Pulse Oximetry 90 % [facility] 11-10-2019 13:29-0500 Respiratory Rate 18 /min [facility] 10-24-2019 13:14-0500 Body Temperature 97.9 [degF] [facility] 10-24-2019 13:14-0500 BP Diastolic 79 mm[Hg] [facility] 10-24-2019 13:14-0500 BP Systolic 146 mm[Hg] [facility] 10-24-2019 13:14-0500 Pulse (Heart Rate) 74 /min [facility] 10-24-2019 13:14-0500 Pulse Oximetry 91 % [facility] 10-24-2019 13:14-0500 Respiratory Rate 18 /min [facility] 10-10-2019 14:11-0500 Body Temperature 97.81 [degF] [facility] 10-10-2019 14:11-0500 BP Diastolic 83 mm[Hg] [facility] 14:11-0500 BP Systolic 146 mm[Hg] [facility] 10-10-2019 14:11-0500 Pulse (Heart Rate) 90 /min [facility] 10-10-2019 14:11-0500 Pulse Oximetry 91 % [facility] 10-10-2019 14:11-0500 Respiratory Rate 20 /min [facility] 10-03-2019 13:19-0500 Body Temperature 97.5 [degF] [facility] 10-03-2019 13:19-0500 BP Diastolic 87 mm[Hg] [facility] 10-03-2019 13:19-0500 BP Systolic 139 mm[Hg] [facility] 10-03-2019 13:19-0500 Pulse (Heart Rate) 91 /min [facility] 10-03-2019 13:19-0500 Pulse Oximetry 91 % [facility] 10-03-2019 13:19-0500 Respiratory Rate 16 /min [facility] 09-19-2019 13:32-0500 Body Temperature 97.9 [degF] [facility] 09-19-2019 13:32-0500 BP Diastolic 83 mm[Hg] [facility] 09-19-2019 13:32-0500 BP Systolic 147 mm[Hg] [facility] 09-19-2019 13:32-0500 Pulse (Heart Rate) 97 /min [facility] 09-19-2019 13:32-0500 Pulse Oximetry 94 % [facility] 09-19-2019 13:32-0500 Respiratory Rate 18 /min [facility] 09-12-2019 13:21-0500 Body Temperature 98.2 [degF] [facility] 09-12-2019 13:21-0500 BP Diastolic 75 mm[Hg] [facility] 09-12-2019 13:21-0500 BP Systolic 117 mm[Hg] [facility] 09-12-2019 13:21-0500 Pulse (Heart Rate) 101 /min Alenadeanna Mora [facility] 09-12-2019 13:21-0500 Pulse Oximetry 92 % Alenadeanna Mora [facility] 09-12-2019 13:21-0500 Respiratory Rate 16 /min Alenadeanna Mora [facility] 08-30-2019 09:25-0500 Body Temperature 97.59 [degF] [facility] 08-30-2019 09:25-0500 BP Diastolic 75 mm[Hg] [facility] 08-30-2019 09:25-0500 BP Systolic 125 mm[Hg] [facility] 08-30-2019 09:25-0500 Pulse (Heart Rate) 73 /min [facility] 08-30-2019 09:25-0500 Pulse Oximetry 96 % [facility] 08-30-2019 09:25-0500 Respiratory Rate 18 /min [facility] 08-24-2019 10:56-0500 Body Temperature 97.5 [degF] [facility] 08-24-2019 10:56-0500 BP Diastolic 72 mm[Hg] [facility] 08-24-2019 10:56-0500 BP Systolic 112 mm[Hg] [facility] 08-24-2019 10:56-0500 Pulse (Heart Rate) 82 /min [facility] 08-24-2019 10:56-0500 Pulse Oximetry 91 % [facility] 08-24-2019 10:56-0500 Respiratory Rate 16 /min [facility] 08-10-2019 10:47-0500 Body Temperature 97.2 [degF] [facility] 08-10-2019 10:47-0500 BP Diastolic 83 mm[Hg] [facility] 08-10-2019 10:47-0500 BP Systolic 154 mm[Hg] [facility] 08-10-2019 10:47-0500 Pulse (Heart Rate) 91 /min [facility] 08-10-2019 10:47-0500 Pulse Oximetry 91 % [facility] 08-10-2019 10:47-0500 Respiratory Rate 18 /min [facility] 06-13-2019 13:09-0400 Body Temperature 98.1 [degF] [facility] 06-13-2019 13:09-0400 BP Diastolic 89 mm[Hg] [facility] 06-13-2019 13:09-0400 BP Systolic 150 mm[Hg] [facility] 06-13-2019 13:09-0400 Pulse (Heart Rate) 78 /min [facility] 06-13-2019 13:09-0400 Pulse Oximetry 97 % [facility] 06-13-2019 13:09-0400 Respiratory Rate 16 /min [facility] 05-19-2019 13:15-0400 Body Temperature 98.4 [degF] [facility] 05-19-2019 13:15-0400 BP Diastolic 104 mm[Hg] [facility] 05-19-2019 13:15-0400 BP Systolic 165 mm[Hg] [facility] 05-19-2019 13:15-0400 Pulse (Heart Rate) 78 /min [facility] 05-19-2019 13:15-0400 Pulse Oximetry 94 % [facility] 05-19-2019 13:15-0400 Respiratory Rate 18 /min [facility] 05-05-2019 13:14-0400 Body Temperature 98.01 [degF] [facility] 05-05-2019 13:14-0400 BP Diastolic 81 mm[Hg] [facility] 05-05-2019 13:14-0400 BP Systolic 158 mm[Hg] [facility] 05-05-2019 13:14-0400 Pulse (Heart Rate) 85 /min [facility] 05-05-2019 13:14-0400 Pulse Oximetry 93 % [facility] 05-05-2019 13:14-0400 Respiratory Rate 18 /min [facility] 04-28-2019 13:08-0400 Body Temperature 98.1 [degF] [facility]upur [facility] 04-28-2019 13:08-0400 BP Diastolic 86 mm[Hg] [facility]upur [facility] 04-28-2019 13:08-0400 BP Systolic 141 mm[Hg] [facility]up[facility] 04-28-2019 13:08-0400 Pulse (Heart Rate) 84 /min [facility] 04-28-2019 13:08-0400 Pulse Oximetry 96 % [facility] 04-28-2019 13:08-0400 Respiratory Rate 18 /min [facility] 04-21-2019 13:30-0400 Body Temperature 98.2 [degF] [facility]up[facility] 04-21-2019 13:30-0400 BP Diastolic 74 mm[Hg] [facility]up[facility] 04-21-2019 13:30-0400 BP Systolic 150 mm[Hg] [facility]up[facility] 04-21-2019 13:30-0400 Pulse (Heart Rate) 110 /min [facility] 04-21-2019 13:30-0400 Pulse Oximetry 95 % [facility] 04-21-2019 13:30-0400 Respiratory Rate 18 /min [facility] 04-14-2019 13:49-0400 Body Temperature 98.29 [degF] [facility] 04-14-2019 13:49-0400 BP Diastolic 95 mm[Hg] [facility]up[facility] 04-14-2019 13:49-0400 BP Systolic 139 mm[Hg] [facility]up[facility] 04-14-2019 13:49-0400 Pulse (Heart Rate) 98 /min [facility] 04-14-2019 13:49-0400 Pulse Oximetry 97 % [facility] 04-14-2019 13:49-0400 Respiratory Rate 16 /min [facility] 04-07-2019 14:13-0400 Body Temperature 98.49 [degF] [facility] 04-07-2019 14:13-0400 BP Diastolic 90 mm[Hg] [facility]up[facility] 04-07-2019 14:13-0400 BP Systolic 151 mm[Hg] [facility]up[facility] 04-07-2019 14:13-0400 Pulse (Heart Rate) 97 /min [facility] 04-07-2019 14:13-0400 Pulse Oximetry 97 % [facility] 04-07-2019 14:13-0400 Respiratory Rate 18 /min [facility] 01-25-2019 09:48-0400 BP Diastolic 78 mm[Hg] [facility] 01-25-2019 09:48-0400 BP Systolic 134 mm[Hg] Rosa M [facility] 01-25-2019 09:48-0400 Pulse (Heart Rate) 88 /min [facility] 01-25-2019 09:48-0400 Pulse Oximetry 92 % Rosa M [facility] 01-25-2019 09:48-0400 Respiratory Rate 16 /min Rosa M [facility] 01-25-2019 09:27-0400 Body Temperature 98.01 [degF] Rosa M [facility] 01-25-2019 07:54-0400 BMI (Body Mass Index) 37.8 kg/m2 [facility] 01-25-2019 07:54-0400 Body weight 122.[address] [facility] 01-25-2019 07:54-[address] [facility] 01-20-2019 10:33-0400 BMI (Body Mass Index) 37.8 kg/m2 [facility] 01-20-2019 10:33-0400 Height 180.3 cm [facility] 01-20-2019 10:33-0400 Weight 122.92 kg [facility] 06-15-2017 11:00-0400 BMI (Body Mass Index) 36.03 kg/m2 [facility] Work Phone: 06-15-2017 11:00-0400 BP Diastolic 82 mm[Hg] [facility] Work Phone: 06-15-2017 11:00-0400 BP Systolic 124 mm[Hg] Angle Is[facility] Work Phone: 06-15-2017 11:00-0400 Height 180.34 cm [facility] Work Phone: 06-15-2017 11:00-0400 Pulse (Heart Rate) 96 /min Angle Kirkland [facility] Work Phone: 06-15-2017 11:00-0400 Respiratory Rate 20 /min Angle Kirkland [facility] Work Phone: 06-15-2017 11:00-0400 Weight 117.2 kg Angle Kirkland [facility] Work Phone: 02-04-2017 15:55-0400 BMI (Body Mass Index) 35.14 kg/m2 Felicia Valencia [employer] [facility] Work Phone: 02-04-2017 15:55-0400 BP Diastolic 72 mm[Hg] Felicia Valencia [employer] [facility] Work Phone: 02-04-2017 15:55-0400 BP Systolic 120 mm[Hg] Felicia Valencia [employer] [facility] Work Phone: 02-04-2017 15:55-0400 Height 180.34 cm Felicia Valencia [employer] [facility] Work Phone: 02-04-2017 15:55-0400 Pulse (Heart Rate) 96 /min Felicia Valencia [facility] [employer] Work Phone: 02-04-2017 15:55-0400 Respiratory Rate 18 /min Felicia Valencia [employer] [facility] Work Phone: 02-04-2017 15:55-0400 Weight 114.31 kg Felicia Valencia [employer] [facility] Work Phone: 11-03-2016 10:20-0500 Heart rate 96 /min Angle Kirkland [facility] Work Phone: 11-03-2016 10:13-0500 Body Temperature 94.8 [degF] Felicia Valencia [employer] [facility] Work Phone: 11-03-2016 10:13-0500 BSA (Body Surface Area) 2.31 m2 Felicia Valencia [employer] [facility] Work Phone: 11-03-2016 10:13-0505 Pulse Oximetry 96 % Felicia Valencia [employer] [facility] Work Phone: Encounters Encounter Date Encounter Type Care Provider Facility Start: 05-10-2025 ambulatory Bhakti smithty:[facility] Start: 05-07-2025 End: 05-07-2025 ambulatory [facility] Start: 04-30-2025 End: 04-30-2025 ambulatory [facility] Start: 04-25-2025 End: 04-25-2025 Office outpatient visit 15 minutes Bhakti Chambers PA-C Work Phone: [facility] Comment on above: DM (diabetes mellitu s), type 2 with neurological complications (Primary Dx); Hypertension associated with diabetes; Class 2 severe obesity due to excess calories with serious comorbidity and body mass index (BMI) of 37.0 to 37.9 in adult Start: 04-25-2025 End: 04-25-2025 ambulatory [facility] Start: 04-23-2025 End: 04-23-2025 Patient encounter procedure Alena Mora DPM Work Phone: [facility] Comment on above: Pressure ulcer of to e of left foot, stage 2 (HCC) (Primary Dx); Skin ulcer of left lower leg with fat layer exposed (HCC); Diabetic peripheral neuropathy (HCC) Start: 04-23-2025 End: 04-23-2025 ambulatory ALENA MORA [facility] Start: 04-16-2025 End: 04-16-2025 Office outpatient visit 15 minutes Alena Mora DPM Work Phone: [facility] Comment on above: Blister of third toe (Primary Dx); Blister of left lower extremity, initial encounter; Pressure ulcer of toe of left foot, stage 2 (HCC); Skin ulcer of small toe of left foot, with fat layer exposed (HCC); Diabetic peripheral neuropathy (HCC) Start: 04-16-2025 End: 04-16-2025 ambulatory ALENA MORA [facility] Start: 04-09-2025 End: 04-09-2025 Patient encounter procedure Alena Beller DPM Work Phone: [facility] Comment on above: Pressure ulcer of to e of left foot, stage 2 (HCC) (Primary Dx); Skin ulcer of small toe of left foot, with fat layer exposed (HCC); Diabetic peripheral neuropathy (HCC) Start: 04-09-2025 End: 04-09-2025 ambulatory ALENA MORA [facility] Start: 04-02-2025 End: 04-02-2025 Patient encounter procedure Alena Beller DPM Work Phone: [facility] Comment on above: Skin ulcer of small toe of left foot, with fat layer exposed (HCC) (Primary Dx); Pressure ulcer of toe of left foot, stage 2 (HCC); Skin ulcer of right lower leg with fat layer exposed (HCC); Skin ulcer of left lower leg with fat layer exposed (HCC) Start: 04-02-2025 End: 04-02-2025 ambulatory ALENA MORA [facility] Start: 03-26-2025 End: 03-26-2025 Office outpatient visit 15 minutes Alena Metcalf [place] DPM Work Phone: [facility] Comment on above: Skin ulcer of right lower leg with fat layer exposed (HCC) (Primary Dx); Skin ulcer of left lower leg with fat layer exposed (HCC); Skin ulcer of small toe of left foot, with fat layer exposed (HCC); Pressure ulcer of toe of left foot, stage 2 (HCC) Start: 03-26-2025 End: 03-26-2025 ambulatory ALENA MORA [facility] Start: 03-19-2025 End: 03-19-2025 Patient encounter procedure Alenadeanna Duvalleler DPM Work Phone: [facility] Comment on above: Blister of right low er extremity, initial encounter (Primary Dx); Blister of left lower extremity, initial encounter; Skin ulcer of small toe of left foot, with fat layer exposed (HCC); Pressure ulcer of toe of left foot, stage 2 (HCC) Start: 03-19-2025 End: 03-19-2025 ambulatory BHAKTIDEIDRA SANDS [facility] Start: 03-19-2025 End: 03-19-2025 Patient encounter procedure Dean [facility] Work Phone: Start: 03-19-2025 End: 03-19-[address] Jace Reeder DO Work Phone: [facility] Work Phone: Start: 03-14-2025 End: 03-14-2025 Assay of hemosiderin, quant Bhakti Chambers PA-C Work Phone: [facility] Work Phone: Start: 03-14-2025 End: 03-14-2025 Patient encounter procedure Bhakti Chambers PA-C Work Phone: [facility] Comment on above: Medicare annual well ness visit, subsequent (Primary Dx); Routine general medical examination at health care facility; Vitamin D deficiency; Hypertension associated with diabetes; DM (diabetes mellitus), type 2 with neurological complications; Acquired hypothyroidism; Low ferritin; Iron deficiency anemia, unspecified iron deficiency anemia type; Medication management; Advanced care planning/counseling discussion; Class 2 severe obesity due to excess calories with serious comorbidity and body mass index (BMI) of 37.0 to 37.9 in adult; Charcot foot due to diabetes mellitus (Multi); Cervicalgia Start: 03-14-2025 End: 03-14-2025 ambulatory [facility] Start: 03-14-2025 End: 03-14-2025 Encounter for general adult medical examination without abnormal findings [facility] Start: 03-13-2025 End: 03-13-2025 Office outpatient visit 15 minutes Alena Mora DPM Work Phone: [facility] Comment on above: Blister of right low er extremity, initial encounter (Primary Dx); Blister of left lower extremity, initial encounter; Bilateral lower extremity edema; Chronic venous insufficiency; Skin ulcer of small toe of left foot, with fat layer exposed (HCC); Pressure ulcer of toe of left foot, stage 2 (HCC); Diabetic peripheral neuropathy (HCC) Start: 03-13-2025 End: 03-13-2025 ambulatory ALENA MORA [facility] Start: 03-06-2025 End: 03-06-2025 Patient encounter procedure Alena Mora DPM Work Phone: [facility] Comment on above: Skin ulcer of small toe of left foot, with fat layer exposed (HCC) (Primary Dx); Pressure ulcer of toe of left foot, stage 2 (HCC) Start: 03-06-2025 End: 03-06-20[facility] Start: 02-27-2025 End: 02-27-2025 Patient encounter procedure Alena Beller DPM Work Phone: [facility] Comment on above: Pressure ulcer of to e of left foot, stage 2 (HCC) (Primary Dx); Skin ulcer of small toe of left foot, with fat layer exposed (HCC); Diabetic peripheral neuropathy (HCC) Start: 02-27-2025 End: 02-27-2025 [facility] Start: 02-21-2025 End: 02-21-2025 Subsequent hospital visit by physician [facility] Comment on above: Cervicalgia Start: 02-21-2025 End: 02-21-2025 ambulatory BHAKTI Dietz [facility] Start: 02-19-2025 End: 02-19-2025 Patient encounter procedure Alena Mora DPM Work Phone: [facility] Comment on above: Pressure ulcer of to e of left foot, stage 2 (HCC) (Primary Dx); Skin ulcer of second toe of right foot with fat layer exposed (HCC); Diabetic peripheral neuropathy (HCC) Start: 02-19-2025 End: 02-19-2025 [facility] Start: 02-05-2025 End: 02-05-2025 Patient encounter procedure Alena Beller DPM Work Phone: [facility] Comment on above: Pressure ulcer of to e of left foot, stage 2 (HCC) (Primary Dx); Skin ulcer of second toe of right foot with fat layer exposed (HCC); Diabetic peripheral neuropathy (HCC) Start: 02-05-2025 End: 02-05-2025 ambulatory ALENA BELLER [facility] Start: 01-29-2025 End: 01-29-2025 Patient encounter procedure Alena Beller DPM Work Phone: [facility] Comment on above: Skin ulcer of second toe of right foot with fat layer exposed (HCC) (Primary Dx); Pressure ulcer of toe of left foot, stage 1; Diabetic peripheral neuropathy (HCC) Start: 01-29-2025 End: 01-29-2025 [facility] Start: 01-15-2025 End: 01-15-2025 Patient encounter procedure Alenadeanna Duvalleler DPM Work Phone: [facility] Comment on above: Skin ulcer of second toe of right foot with fat layer exposed (HCC) (Primary Dx); Pressure ulcer of toe of left foot, stage 1; Diabetic peripheral neuropathy (HCC) Start: 01-15-2025 End: 01-15-2025 ambulatory [facility] Start: 01-11-2025 End: 01-11-2025 Office outpatient new 45 minutes Bhakti Chambers PA-C Work Phone: [facility] Comment on above: Encounter to [facility] with new provider (Primary Dx); Hypertension associated with diabetes; Acquired hypothyroidism; DM (diabetes mellitus), type 2 with neurological complications; Class 2 severe obesity due to excess calories with serious comorbidity and body mass index (BMI) of 37.0 to 37.9 in adult; Charcot foot due to diabetes mellitus (Multi); Screening PSA (prostate specific antigen); Vitamin D deficiency; Iron deficiency anemia, unspecified iron deficiency anemia type; Cervicalgia; Sinus bradycardia; Mixed hyperlipidemia; Coronary artery disease involving 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; AV block, 1st degree; Acute on chronic combined systolic and diastolic heart failure Start: 01-11-2025 End: 01-11-2025 ambulatory [facility] Start: 01-10-2025 ambulatory [facility] Start: 01-08-2025 End: 01-08-2025 Office outpatient visit 15 minutes Alena Sabry Abby DPM Work Phone: [facility] Comment on above: Pressure ulcer of to e of left foot, stage 1 (Primary Dx); Skin ulcer of second toe of right foot with fat layer exposed (HCC); Diabetic peripheral neuropathy (HCC) Start: 01-08-2025 End: 01-12-2025 ambulatory [facility] Start: 12-25-2024 End: 12-25-2024 Office outpatient visit 15 minutes Alena Sabry [place] DPM Work Phone: [facility] Comment on above: Pressure ulcer of to e of left foot, stage 1 (Primary Dx); Diabetic peripheral neuropathy (HCC) Start: 12-25-2024 End: 12-25-2024 ambulatory ALENA Purer SkinMISTI [facility] Start: 12-04-2024 End: 12-04-2024 Office outpatient visit 15 minutes Alena Sabry [place] DPM Work Phone: [facility] Comment on above: Skin ulcer of right lower leg with fat layer exposed (HCC) (Primary Dx); Skin ulcer of left lower leg with fat layer exposed (HCC); Bilateral lower extremity edema Start: 12-04-2024 End: 12-04-2024 [facility] Start: 11-27-2024 End: 11-27-2024 Office outpatient visit 15 minutes Alena Sabry [place] DPM Work Phone: [facility] Comment on above: Skin ulcer of right lower leg with fat layer exposed (HCC) (Primary Dx); Skin ulcer of left lower leg with fat layer exposed (HCC); Bilateral lower extremity edema Start: 11-27-2024 End: 11-27-2024 ambulatory ALENADeanna METCALF ABBY [facility] Start: 11-22-2024 [facility] Start: 11-20-2024 End: 11-20-2024 Office outpatient visit 15 minutes Alena Mora DPM Work Phone: [facility] Comment on above: Bilateral lower extr emity edema (Primary Dx); Skin ulcer of right lower leg, limited to breakdown of skin (HCC); Chronic ulcer of left leg with fat layer exposed (HCC) Start: 11-20-2024 End: 11-20-2024 [facility] Start: 11-13-2024 End: 11-13-2024 Patient encounter procedure Alena Mora DPM Work Phone: [facility] Comment on above: Bilateral lower extr emity edema (Primary Dx); Chronic venous insufficiency; Skin ulcer of right lower leg, limited to breakdown of skin (HCC); Chronic ulcer of left leg with fat layer exposed (HCC); Skin ulcer of right great toe, limited to breakdown of skin (HCC) Start: 11-13-2024 End: 11-13-2024 [facility] Start: 11-06-2024 End: 11-06-2024 Office outpatient visit 15 minutes Alena Mora DPM Work Phone: [facility] Comment on above: Skin ulcer of left f oot with fat layer exposed (HCC) (Primary Dx); Chronic venous insufficiency; Skin ulcer of right foot with fat layer exposed (HCC); Bilateral lower extremity edema Start: 11-06-2024 End: 11-10-2024 ambulatory ALENA TEA BELLER [facility] Start: 10-20-2024 End: 10-20-2024 Office outpatient visit 10 minutes Alena Mora DPM Work Phone: [facility] Comment on above: Skin ulcer of middle toe, right, with fat layer exposed (HCC) (Primary Dx); Diabetic peripheral neuropathy (HCC); PAD (peripheral artery disease) (HCC) Start: 10-20-2024 End: 10-20-2024 ambulatory [facility] Start: 10-06-2024 End: 10-06-2024 Office outpatient visit 15 minutes Alena Sabry Abby DPM Work Phone: [facility] Comment on above: Skin ulcer of middle toe, right, with fat layer exposed (HCC) (Primary Dx); Diabetic peripheral neuropathy (HCC); PAD (peripheral artery disease) (HCC) Start: 10-06-2024 End: 10-06-2024 ambulatory [facility] Start: 09-22-2024 End: 09-22-2024 Office outpatient visit 15 minutes Alena Sabry [place] DPM Work Phone: [facility] Comment on above: Blister of right low er extremity, initial encounter (Primary Dx); Skin ulcer of right lower leg with fat layer exposed (HCC) Start: 09-22-2024 End: 09-22-2024 [facility] Start: 09-15-2024 End: 09-15-2024 Office outpatient visit 15 minutes Alena Sabry Abby DPM Work Phone: [facility] Comment on above: Skin ulcer of second toe of left foot with fat layer exposed (HCC) (Primary Dx); Chronic foot ulcer with fat layer exposed, left (HCC); Bilateral lower extremity edema Start: 09-15-2024 End: 09-15-2024 ambulatory [facility] Start: 09-08-2024 End: 09-08-2024 Office outpatient visit 15 minutes Alena Sabry [place] DPM Work Phone: [facility] Comment on above: Skin ulcer of second toe of left foot with fat layer exposed (HCC) (Primary Dx); Chronic foot ulcer with fat layer exposed, left (HCC); Bilateral lower extremity edema Start: 09-08-2024 End: 09-12-2024 ambulatory [facility] Start: 08-25-2024 End: 08-25-2024 Patient encounter procedure Torie Avendano CNP Work Phone: [facility] Comment on above: Skin ulcer of second toe of left foot with fat layer exposed (HCC) (Primary Dx); Osteomyelitis of toe of left foot (HCC); Blister of left lower extremity, initial encounter Start: 08-25-2024 End: 08-[facility] Start: 08-18-2024 End: 08-18-2024 Office outpatient visit 15 minutes Alena Mora DPM Work Phone: [facility] Comment on above: Skin ulcer of second toe of left foot with fat layer exposed (HCC) (Primary Dx); Blister of left lower extremity, initial encounter Start: 08-18-2024 End: 08-18-2024 [facility] Start: 08-11-2024 End: 08-11-2024 Office outpatient visit 15 minutes Alena VILLANUEVAM Work Phone: [facility] Comment on above: Skin ulcer of second toe of left foot with fat layer exposed (HCC) (Primary Dx); Chronic foot ulcer with fat layer exposed, left (HCC) Start: 08-11-2024 End: 08-11-2024 [facility] Start: 08-04-2024 End: 08-04-2024 Patient encounter procedure Alena Mora DPM Work Phone: [facility] Comment on above: Bilateral lower extr emity edema (Primary Dx); Skin ulcer of second toe of left foot with fat layer exposed (HCC); Osteomyelitis of second toe of left foot (HCC); Chronic foot ulcer with fat layer exposed, left (HCC) Start: 08-04-2024 End: 08-04-2024 [facility] Start: 08-04-2024 End: 08-04-2024 [facility] Start: 07-31-2024 End: 07-31-2024 Home visit Ana Rios RN [facility] Comment on above: SN HH OASIS DISCHARG E Start: 07-28-2024 End: 07-28-2024 Patient encounter procedure Alena Beller DPM Work Phone: [facility] Comment on above: Bilateral lower extr emity edema; Skin ulcer of second toe of left foot with fat layer exposed (HCC); Chronic foot ulcer with fat layer exposed, left (HCC) Start: 07-28-2024 End: 07-28-2024 ambulatory [facility] Start: 07-26-2024 End: 07-26-2024 Home visit Ana Rios RN [facility] Comment on above: SN MISSED VISIT Start: 07-24-2024 End: 07-24-2024 Office outpatient visit 25 minutes Jace Reeder DO Work Phone: [facility] Comment on above: Benign prostatic hyp erplasia with urinary frequency; Diabetic polyneuropathy associated with type 2 diabetes mellitus (Multi); Primary hypertension; Type 2 diabetes mellitus without complication, without long-term current use of insulin (Multi); Mixed hyperlipidemia; Acquired hypothyroidism; Leg swelling Start: 07-24-2024 End: 07-24-2024 ambulatory [facility] Start: 07-21-2024 End: 07-21-2024 ambulatory [facility] Start: 07-14-2024 End: 07-14-2024 Office outpatient visit 15 minutes Alean Tea Beller DPM Work Phone: [facility] Comment on above: Bilateral lower extr emity edema (Primary Dx); Osteomyelitis of second toe of left foot (HCC); Skin ulcer of second toe of left foot with fat layer exposed (HCC) Start: 07-14-2024 End: 07-14-2024 ambulatory [facility] Start: 07-10-2024 End: 07-10-2024 Transitional care manage srvc 14 day discharge Jace Reeder DO Work Phone: [facility] Comment on above: Other chronic osteom yelitis of foot, unspecified laterality (Multi) (Primary Dx); Mixed hyperlipidemia; Primary hypertension; DM (diabetes mellitus), type 2 with neurological complications; Acquired hypothyroidism; Obesity, morbid (Multi); Benign prostatic hyperplasia with urinary obstruction Start: 07-10-2024 End: 07-10-2024 ambulatory [facility] Start: 07-07-2024 End: 07-07-2024 ambulatory [facility] Start: 07-01-2024 End: 07-01-2024 Home visit Lupe Snow RN [facility] Comment on above: SN HH OASIS START OF CARE Start: 06-26-2024 End: 07-31-2024 ambulatory [facility] Start: 06-23-2024 End: 06-30-2024 Evaluation and management of inpatient [facility] Start: 06-23-2024 End: 06-23-2024 Office outpatient visit 25 minutes Alena Mora DPM Work Phone: [facility] Comment on above: Osteomyelitis of sec ond toe of left foot (HCC) (Primary Dx); Skin ulcer of second toe of left foot with fat layer exposed (HCC); Chronic ulcer of right leg with fat layer exposed (HCC); Diabetic peripheral neuropathy (HCC); PAD (peripheral artery disease) ([facility]) Start: 06-23-2024 End: 06-23-2024 ambulatory [facility] Start: 06-21-2024 End: 06-21-2024 Office outpatient visit 25 minutes [facility] DO Work Phone: [facility] Comment on above: Leg swelling (Primar y Dx); Heart failure due to high blood pressure (Multi); Mixed hyperlipidemia; DM (diabetes mellitus), type 2 with neurological complications (Multi) Start: 06-21-2024 End: 06-21-2024 ambulatory [facility] Start: 06-09-2024 End: 06-09-2024 Emergency department patient visit [facility] Start: 06-06-2024 End: 06-06-2024 Office outpatient visit 25 minutes Alena Mora DPM Work Phone: [facility] Comment on above: Bilateral lower leg cellulitis (Primary Dx); Chronic ulcer of right leg with fat layer exposed (HCC); Chronic ulcer of left leg with fat layer exposed (HCC); Skin ulcer of left foot with fat layer exposed (HCC); Skin ulcer of second toe of left foot with fat layer exposed (HCC); Diabetic peripheral neuropathy (HCC); Charcot foot due to diabetes mellitus (HCC) Start: 06-06-2024 End: 06-10-2024 ambulatory ALENA METCALF [facility] Start: 05-28-2024 End: 05-28-2024 [facility] Start: 05-11-2024 ambulatory TORIE AVENDANO [facility] Start: 04-17-2024 End: 04-17-2024 Office outpatient visit 25 minutes Jace Reeder DO Work Phone: [facility] Comment on above: Obesity, morbid ([place]) (Primary Dx); Mixed hyperlipidemia; DM (diabetes mellitus), type 2 with neurological complications (Multi); Acquired hypothyroidism Start: 04-14-2024 End: 04-14-2024 [facility] Start: 04-11-2024 End: 04-11-2024 Patient encounter procedure Torie Avendano 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 Work Phone: [facility] Comment on above: Onychomycosis (Prima ry Dx); Diabetic peripheral neuropathy (HCC); Charcot foot due to diabetes mellitus (HCC); Ulcer of right lower extremity, limited to breakdown of skin (HCC); Ulcer of left lower extremity, limited to breakdown of skin (HCC) Start: 01-19-2024 End: 01-19-2024 Office outpatient new 45 minutes Jace Reeder DO Work Phone: [facility] Comment on above: Type 2 diabetes favio itus without complication, without long- term current use of insulin (Multi) (Primary Dx); Primary hypertension; Mixed hyperlipidemia; Benign prostatic hyperplasia with urinary frequency; Diabetic polyneuropathy associated with type 2 diabetes mellitus (Multi); Acquired hypothyroidism Start: 01-04-2024 End: 01-04-2024 Patient encounter procedure Torie Avendano CNP Work Phone: [facility] Comment on above: Onychomycosis (Prima ry Dx); Diabetic peripheral neuropathy (HCC); Charcot foot due to diabetes mellitus (HCC); Wound of right lower extremity, initial encounter Start: 10-05-2023 End: 10-05-2023 Patient encounter procedure Torie Avendano CNP Work Phone: [facility] Comment on above: Onychomycosis (Prima ry Dx); Diabetic peripheral neuropathy (HCC); Charcot foot due to diabetes mellitus (HCC) Start: 06-21-2023 End: 06-21-2023 Patient encounter procedure Torie Avendano CNP Work Phone: [facility] Comment on above: Charcot foot due to diabetes mellitus (HCC) (Primary Dx); Onychomycosis Start: 05-18-2023 AUDIT Rohit sotomayor Work Phone: [id number] Work Phone: Start: 03-08-2023 Chart Update Rohit sotomayor Work Phone[facility] Work Phone: Start: 02-24-2023 End: 02-24-[address] Michelle Beaulieu Facility:[id number] Start: 02-24-2023 End: 02-24-2023 Subsequent hospital visit by physician Michelle Beaulieu DO Work Phone: [facility] Comment on above: Encounter for screen ing for malignant neoplasm of colon; Polyp of colon; Presence of aortocoronary bypass graft; Sleep apnea, unspecified; Benign prostatic hyperplasia without lower urinary tract symptoms; Type 2 diabetes mellitus without complications (CMS/HCC); penitentiary (current) use of insulin (CMS/HCC); Essential (primary) hypertension; Pure hypercholesterolemia, unspecified Start: 01-06-2023 End: 01-06-[address] Michelle Beaulieu Facility:[id number] Start: 01-06-2023 End: 01-06-2023 Subsequent hospital visit by physician Michelle [facility]ulieu DO [facility] Comment on above: Encounter for screen ing for malignant neoplasm of colon; Procedure and treatment not carried out for other reasons Start: 12-14-2022 End: 12-14-2022 Patient encounter procedure Torie Avendano 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 Work Phone: [facility] Comment on above: Onychomycosis (Prima ry Dx); Charcot foot due to diabetes mellitus (HCC) Start: 09-14-2022 End: 09-14-2022 Patient encounter procedure Torie Avendano 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 Work Phone: [facility] Comment on above: Onychomycosis (Prima ry Dx); Charcot foot due to diabetes mellitus (HCC) Start: 06-11-2022 End: 06-11-2022 Patient encounter procedure Torie Avendano 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 Work Phone: [facility] Comment on above: Onychomycosis (Prima ry Dx) Start: 05-27-2022 Office outpatient vi sit 25 minutes Rohit Aguilar Work Phone: [id number] Work Phone: Start: 05-27-[address] Rohit Aguilar Fa cility:[id number] Start: 04-01-2022 End: 04-01-2022 Office outpatient visit 15 minutes Alena Mora DPM Work Phone: [facility] Comment on above: Skin ulcer of right lower leg, limited to breakdown of skin (HCC) (Primary Dx) Start: 03-04-2022 End: 03-04-2022 Office outpatient visit 15 minutes Alena Mora DPM Work Phone: [facility] Comment on above: Skin ulcer of right lower leg with fat layer exposed (HCC); Skin ulcer of left lower leg with fat layer exposed (HCC); Onychomycosis; Diabetic peripheral neuropathy (HCC) Start: 01-05-2022 Non-patient / Non-visit Dr. Altman Work Phone: [facility] Start: 01-05-2022 End: 01-05-[address] Rohit Aguilar Work Phone: [facility] Start: 12-25-2021 End: 12-25-[address] Rohit Aguilar Work Phone: [facility] Start: 11-12-2021 End: 11-12-2021 Office outpatient visit 15 minutes Alena Sabry Abby DPM Work Phone: [facility] Comment on above: Comprehensive diabet ic foot examination, type 2 DM, encounter for (HCC) (Primary Dx); Diabetic peripheral neuropathy (HCC); Onychomycosis; Edema of both lower legs Start: 10-09-2021 End: 10-09-2021 Office outpatient visit 10 minutes Alena Sabry [place] DPM Work Phone: [facility] Comment on above: Ulcer of left foot w ith fat layer exposed (HCC) (Primary Dx); Diabetic peripheral neuropathy (HCC) Start: 09-10-2021 End: 09-10-2021 Office outpatient visit 10 minutes Alena Sabry [place] DPM Work Phone: [facility] Comment on above: Ulcer of left foot w ith fat layer exposed (HCC) (Primary Dx); Diabetic peripheral neuropathy (HCC) Start: 09-03-2021 End: 09-03-2021 Patient encounter procedure Alena Sabry [place] DPM Work Phone: [facility] Comment on above: Ulcer of left foot w ith fat layer exposed (HCC) (Primary Dx); Chronic ulcer of left leg with fat layer exposed (HCC); Diabetic peripheral neuropathy (HCC) Start: 08-27-2021 End: 08-27-2021 Office outpatient visit 10 minutes Alena Sabry Abby DPM Work Phone: [facility] Comment on above: Chronic ulcer of lef t leg with fat layer exposed (HCC) (Primary Dx); Diabetic peripheral neuropathy (HCC) Start: 08-20-2021 End: 08-20-2021 Patient encounter procedure Alena Mora DPM Work Phone: [facility] Comment on above: Chronic ulcer of lef t leg with fat layer exposed (HCC) (Primary Dx); Ulcer of left foot with fat layer exposed (HCC) Start: 07-09-2021 End: 07-09-2021 Office outpatient visit 15 minutes Alena VILLANUEVAM Work Phone: [facility] Comment on above: Comprehensive diabet ic foot examination, type 2 DM, encounter for (HCC); Diabetic peripheral neuropathy (HCC); Onychomycosis; Blister of left foot, initial encounter; Ulcer of left foot with fat layer exposed (HCC) Start: 03-27-2021 End: 03-27-2021 Chart abstracting Alena Mora DPM Work Phone: [facility] Comment on above: Neuropathy; Effusion of ankle and foot joint; Overflow incontinence Start: 03-10-2021 Office outpatient vi sit 25 minutes Rohit Aguilar Work Phone: [id number] Work Phone: Start: 01-16-2021 End: 01-16-2021 Office outpatient visit 25 minutes Maria Isabel Awad Work Phone: [facility] Comment on above: Acute osteomyelitis (HCC) (Primary Dx); Insulin dependent diabetes mellitus type IA (HCC); 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 Start: 10-18-2020 End: 10-18-2020 Subsequent hospital visit by physician Alena Mora Work Phone: [facility] Comment on above: Arrived Start: 10-18-2020 End: 10-18-2020 Office outpatient visit 25 minutes Prity Shannan Work Phone: [facility] Comment on above: Charcot foot due to diabetes mellitus (HCC) (Primary Dx); Closed nondisplaced transverse fracture of shaft of right tibia with routine healing, subsequent encounter; Acute osteomyelitis (HCC); penitentiary (current) use of antibiotics; Elevated sed rate; Elevated C-reactive protein (CRP) Start: 10-18-2020 End: 10-18-2020 Office outpatient visit 15 minutes Alena Mora Work Phone: [facility] Comment on above: Closed nondisplaced transverse fracture of shaft of right tibia with routine healing, subsequent encounter (Primary Dx); Charcot foot due to diabetes mellitus (HCC) Start: 09-06-2020 End: 09-06-2020 Subsequent hospital visit by physician Alena Mora Work Phone: [facility] Comment on above: Arrived Start: 09-06-2020 End: 09-06-2020 Office outpatient visit 15 minutes Madefireidya Work Phone: [facility] Comment on above: Chronic ulcer of rig ht great toe, with unspecified severity (HCC) (Primary Dx); Charcot foot due to diabetes mellitus (HCC); Closed nondisplaced transverse fracture of shaft of right tibia with routine healing, subsequent encounter Start: 09-06-2020 End: 09-06-2020 Office outpatient visit 25 minutes MaryseCardinalCom[place] Shannan Work Phone: [facility] Comment on above: Chronic ulcer of rig ht great toe, with unspecified severity (HCC) (Primary Dx); Charcot foot due to diabetes mellitus (HCC); Closed nondisplaced transverse fracture of shaft of right tibia with routine healing, subsequent encounter; Acute osteomyelitis (HCC); penitentiary (current) use of antibiotics; Elevated sed rate; Elevated C-reactive protein (CRP); 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 Start: 08-23-2020 End: 08-23-2020 Subsequent hospital visit by physician Maria Isabel Awad Work Phone: [facility] Comment on above: Arrived Start: 08-23-2020 End: 08-23-2020 Office outpatient visit 15 minutes Alena IntelliDOTmisti [place] Work Phone: [facility] Comment on above: Chronic ulcer of rig ht great toe, with unspecified severity (HCC) (Primary Dx); Charcot foot due to diabetes mellitus (HCC); Closed nondisplaced transverse fracture of shaft of right tibia with routine healing, subsequent encounter Start: 08-23-2020 End: 08-23-2020 Office outpatient visit 25 minutes JoKno Work Phone: [facility] Comment on above: Chronic ulcer of rig ht great toe, with unspecified severity (HCC) (Primary Dx); Charcot foot due to diabetes mellitus (HCC); Acute osteomyelitis (HCC); intermediate designer (current) use of antibiotics; Elevated sed rate; Elevated C-reactive protein (CRP); 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; Closed nondisplaced transverse fracture of shaft of right tibia with routine healing, subsequent encounter Start: 08-09-2020 End: 08-09-2020 Subsequent hospital visit by physician Alena Moar Work Phone: [facility] Comment on above: Arrived Start: 08-09-2020 End: 08-09-2020 Office outpatient visit 15 minutes JoKno Work Phone: [facility] Comment on above: Closed nondisplaced transverse fracture of shaft of right tibia with routine healing, subsequent encounter (Primary Dx); Chronic ulcer of right great toe, with unspecified severity (HCC) Start: 08-09-2020 End: 08-09-2020 Office outpatient visit 25 minutes JoKno Work Phone: [facility] Comment on above: Chronic ulcer of rig ht great toe, with unspecified severity (HCC) (Primary Dx); Charcot foot due to diabetes mellitus (HCC); Acute osteomyelitis (HCC); intermediate designer (current) use of antibiotics; Elevated sed rate; Elevated C-reactive protein (CRP); 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 Start: 08-02-2020 End: 08-02-2020 Subsequent hospital visit by physician Alena Mora Work Phone: [facility] Comment on above: Arrived Start: 08-02-2020 End: 08-02-2020 Office outpatient visit 15 minutes Alena Mora Work Phone: [facility] Comment on above: Chronic ulcer of rig ht great toe, with unspecified severity (HCC) (Primary Dx); Charcot foot due to diabetes mellitus (HCC); Pain and swelling of right ankle; Right leg pain; Closed nondisplaced transverse fracture of shaft of right tibia, initial encounter Start: 08-02-2020 End: 08-02-2020 Office outpatient visit 25 minutes Marysejamie Shannan Work Phone: [facility] Comment on above: penitentiary (current) use of antibiotics (Primary Dx); Chronic ulcer of right great toe, with unspecified severity (HCC); Charcot foot due to diabetes mellitus (HCC); Type 2 diabetes mellitus with diabetic autonomic neuropathy, with long-term current use of insulin (HCC); Blister of right lower extremity, initial encounter Start: 07-12-2020 End: 07-12-2020 Office outpatient visit 25 minutes Alena Mora Work Phone: [facility] Comment on above: Chronic ulcer of rig ht great toe, with unspecified severity (HCC) (Primary Dx); Charcot foot due to diabetes mellitus (HCC); 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); Acute osteomyelitis (HCC); intermediate designer (current) use of antibiotics Start: 07-12-2020 End: 07-12-2020 Patient encounter procedure Alena Mora Work Phone: [facility] Comment on above: Chronic ulcer of rig ht great toe, with unspecified severity (HCC) (Primary Dx); Charcot foot due to diabetes mellitus (HCC); 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); Acute osteomyelitis (HCC); penitentiary (current) use of antibiotics Start: 07-05-2020 End: 07-05-2020 Subsequent hospital visit by physician Alena Mora Work Phone: [facility] Comment on above: Arrived Start: 07-05-2020 End: 07-05-2020 Patient encounter procedure Alena Mora Work Phone: [facility] Comment on above: Chronic ulcer of rig ht great toe, with unspecified severity (HCC) (Primary Dx); Charcot foot due to diabetes mellitus (HCC) Start: 07-04-2020 End: 07-04-2020 Documentation procedure [facility]ie [facility] Start: 06-21-2020 End: 06-21-2020 Subsequent hospital visit by physician Alena Mora Work Phone: [facility] Comment on above: Arrived Start: 06-21-2020 End: 06-21-2020 Patient encounter procedure Alena Mora Work Phone: [facility] Comment on above: Charcot foot due to diabetes mellitus (HCC) (Primary Dx); Chronic ulcer of right great toe, with unspecified severity (HCC) Start: 06-07-2020 End: 06-07-2020 Office outpatient visit 25 minutes Marysejamie Shannan Work Phone: [facility] Comment on above: Acute osteomyelitis (HCC) (Primary Dx); penitentiary (current) use of antibiotics; Charcot's joint of right foot; Chronic ulcer of right great toe, with unspecified severity (HCC); 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); 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; Elevated C-reactive protein (CRP); Elevated sed rate Start: 06-07-2020 End: 06-07-2020 Patient encounter procedure Maria Isabel Awad Work Phone: [facility] Comment on above: Chronic ulcer of rig ht great toe, with unspecified severity (HCC) (Primary Dx); 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) Start: 06-06-2020 End: 06-06-2020 Documentation procedure [facility] Start: 05-31-2020 Patient encounter procedure [id number] [facility] NURSE [id number] Work Phone: Start: 05-24-2020 End: 05-24-2020 Subsequent hospital visit by physician Alena Mora Work Phone: [facility] Comment on above: Arrived Start: 05-24-2020 End: 05-24-2020 Office outpatient visit 15 minutes JoKno Work Phone: [facility] Comment on above: Chronic ulcer of rig ht great toe, with unspecified severity (HCC) (Primary Dx); Charcot's joint of right foot Start: 05-24-2020 End: 05-24-2020 Office outpatient visit 25 minutes JoKno Work Phone: [facility] Comment on above: penitentiary (current) use of antibiotics (Primary Dx); Charcot's joint of right foot; 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); 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; Elevated C-reactive protein (CRP); Elevated sed rate; Acute osteomyelitis (HCC) Start: 05-10-2020 End: 05-10-2020 Postop follow up visit related to original px Alena Mora Work Phone: [facility] Comment on above: Charcot's joint of r ight foot (Primary Dx); 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) Start: 05-10-2020 End: 05-10-2020 Office outpatient visit 25 minutes JoKno Work Phone: [facility] Comment on above: Charcot's joint of r ight foot (Primary Dx); 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); 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; Elevated C-reactive protein (CRP); Elevated sed rate; Acute osteomyelitis (HCC) Start: 05-02-2020 End: 05-02-2020 Admission to [facility] Start: 05-01-2020 End: 05-03-2020 Subsequent hospital visit by physician Alena Mora Work Phone: [facility] Comment on above: Diabetes mellitus wi th Charcot's joint arthropathy (HCC) (Primary Dx); 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; Acute osteomyelitis (HCC); S/P ankle arthrodesis; IDDM (insulin dependent diabetes mellitus) (HCC); Cellulitis, unspecified cellulitis site Start: 04-28-2020 End: 04-28-2020 Patient encounter procedure ALENA MORA [facility] Start: 04-26-2020 End: 04-26-2020 Subsequent hospital visit by physician Alena Mora Work Phone: [facility] Comment on above: Charcot's joint of r ight foot Start: 04-26-2020 End: 04-26-2020 Office outpatient visit 15 minutes Nupur Leonardoney [employer] Work Phone: [facility] Comment on above: Charcot's joint of r ight foot (Primary Dx); 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) Start: 04-25-2020 End: 04-25-2020 Documentation procedure [facility] Start: 04-17-2020 Patient encounter procedure [id number] [facility] NURSE [facility] 824 DO Work Phone: Start: 04-12-2020 End: 04-12-2020 Office outpatient visit 15 minutes Alena Tea Mora Work Phone: [facility] Comment on above: Charcot's joint of r ight foot (Primary Dx); 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) Start: 04-11-2020 End: 04-11-2020 Documentation procedure [facility] Start: 03-15-2020 End: 03-15-2020 Office outpatient visit 10 minutes Nupurlori Aranda [employer] Work Phone: [facility] Comment on above: Charcot's joint of r ight foot (Primary Dx); 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) Start: 03-06-2020 Patient encounter procedure [id number] [facility] NURSE [facility] HC 232 DO Work Phone: Start: 03-04-2020 End: 03-04-2020 Home visit [place] [facility] Comment on above: SN HH OASIS DISCHARG E Start: 03-01-2020 End: 03-01-2020 Postop follow up visit related to original px Alena Mora Work Phone: [facility] Comment on above: Charcot's joint of r ight foot (Primary Dx); 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) Start: 03-01-2020 End: 03-01-2020 Office outpatient visit 25 minutes JoKno Work Phone: [facility] Comment on above: Dehiscence of operat aime wound, subsequent encounter (Primary Dx); Charcot's joint of right foot; 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; Elevated sed rate; Elevated C-reactive protein (CRP); Acute osteomyelitis (HCC); Type 2 diabetes mellitus with diabetic autonomic neuropathy, with long-term current use of insulin (HCC) Start: 02-29-2020 End: 02-29-2020 Documentation [facility] Start: 02-27-2020 End: 02-27-2020 Home visit [facility] Comment on above: NUCLEAR RADIATION ENGINEER ROUTINE Start: 02-23-2020 End: 02-23-2020 Patient encounter procedure Alena Mora Work Phone: [facility] Comment on above: Dehiscence of operat aime wound, subsequent encounter (Primary Dx); Foot ulcer with fat layer exposed, right (HCC); Charcot's joint of right foot Start: 02-23-2020 End: 02-23-2020 Office outpatient visit 25 minutes JoKno Work Phone: [facility] Comment on above: Dehiscence of operat aime wound, subsequent encounter (Primary Dx); 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; Elevated sed rate; Elevated C-reactive protein (CRP); Acute osteomyelitis (HCC); Charcot's joint of right foot; 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) Start: 02-21-2020 End: 02-21-2020 Home visit [place] [facility] Comment on above: SN ROUTINE VISIT Start: 02-19-2020 End: 02-19-2020 Home visit [place] [facility] Comment on above: NUCLEAR RADIATION ENGINEER HH ROUTINE Start: 02-16-2020 End: 02-16-2020 Subsequent hospital visit by physician Nupur Davis Work Phone: [facility] Comment on above: Arrived Start: 02-16-2020 End: 02-16-2020 Office outpatient visit 25 minutes Nupur Davis Work Phone: [facility] Comment on above: Charcot's joint of f oot, unspecified laterality (Primary Dx); 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); Type 2 diabetes mellitus with diabetic autonomic neuropathy, with long-term current use of insulin (HCC); Dehiscence of operative wound, subsequent encounter; 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; Elevated sed rate; Elevated C-reactive protein (CRP); Acute osteomyelitis (HCC) Start: 02-16-2020 End: 02-16-2020 Postop follow up visit related to original px Nupur Davis Work Phone: [facility] Comment on above: Charcot's joint of f oot, unspecified laterality (Primary Dx); 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); Type 2 diabetes mellitus with diabetic autonomic neuropathy, with long-term current use of insulin (HCC) Start: 02-14-2020 End: 02-14-2020 Home visit [facility] Comment on above: SN ROUTINE VISIT Start: 02-12-2020 End: 02-12-2020 Home visit [facility] Comment on above: [facility] OASIS RECERTIF ICATION Start: 02-09-2020 End: 02-09-2020 Office outpatient visit 25 minutes Maria Isabel Awad Work Phone: [facility] Comment on above: Dehiscence of operat aime wound, subsequent encounter; 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); Acute osteomyelitis (HCC); 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; Elevated sed rate; Elevated C-reactive protein (CRP); Type 2 diabetes mellitus with diabetic autonomic neuropathy, with long-term current use of insulin (HCC) Start: 02-09-2020 End: 02-09-2020 Patient encounter procedure Alena Mora Work Phone: [facility] Comment on above: Dehiscence of operat aime wound, subsequent encounter (Primary Dx); 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); Type 2 diabetes mellitus with diabetic autonomic neuropathy, with long-term current use of insulin (HCC) Start: 02-07-2020 End: 02-07-2020 Home visit [facility] Comment on above: [facility] ROUTINE VISIT Start: 02-05-2020 End: 02-05-2020 Home visit [facility] Comment on above: [facility] ROUTINE VISIT Start: 02-02-2020 End: 02-02-2020 Home visit Rose Mendes [facility] Comment on above: CASE COMMUNICATION Start: 02-02-2020 End: 02-02-2020 Patient encounter procedure Alena Mora Work Phone: [facility] Comment on above: Dehiscence of operat aime wound, subsequent encounter (Primary Dx); 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); Charcot's joint of right foot; Skin ulcer of right great toe with fat layer exposed (HCC) Start: 01-29-2020 End: 01-29-2020 Home visit [facility] Comment on above: [facility] ROUTINE VISIT Start: 01-26-2020 End: 01-26-2020 Office outpatient visit 15 minutes JoKno Work Phone: [facility] Comment on above: Dehiscence of operat aime wound, subsequent encounter (Primary Dx); 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); Charcot's joint of right foot; Retained orthopedic hardware Start: 01-26-2020 End: 01-26-2020 Office outpatient visit 25 minutes JoKno Work Phone: [facility] Comment on above: Dehiscence of operat aime wound, subsequent encounter (Primary Dx); 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); Acute osteomyelitis (HCC); 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; Elevated sed rate; Elevated C-reactive protein (CRP); Type 2 diabetes mellitus with diabetic autonomic neuropathy, with long-term current use of insulin (HCC) Start: 01-22-2020 End: 01-22-2020 Home visit [facility] Comment on above: SN HH ROUTINE VISIT Start: 01-19-2020 End: 01-19-2020 Office outpatient visit 25 minutes Sotero Hendrix Work Phone: [facility] Comment on above: Dehiscence of operat aime wound, subsequent encounter (Primary Dx); Charcot's joint of right foot; 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); Acute osteomyelitis (HCC); 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 Start: 01-19-2020 End: 01-19-2020 Patient encounter procedure Sotero Hendrix Work Phone: [facility] Comment on above: Foot ulcer with fat layer exposed, right (HCC) (Primary Dx); Dehiscence of operative wound, subsequent encounter; Charcot's joint of right foot Start: 01-18-2020 End: 01-18-2020 Home visit [facility] Comment on above: CASE COMMUNICATION Start: 01-17-2020 Patient encounter procedure [id number] [facility] NURSE [id number] HC 232 DO Work Phone: Start: 01-15-2020 End: 01-15-2020 Home visit [facility] Comment on above: SN HH ROUTINE VISIT Start: 01-12-2020 End: 01-12-2020 Home visit Iona Ji [facility] Comment on above: NUCLEAR RADIATION ENGINEER HH MISSED VISIT SN PRN VISIT Start: 01-12-2020 End: 01-12-2020 Subsequent hospital visit by physician Alena Mora Work Phone: [facility] Comment on above: Arrived Start: 01-12-2020 End: 01-12-2020 Office outpatient visit 25 minutes Maria Isabel Awad Work Phone: [facility] Comment on above: Foot ulcer with fat layer exposed, right (HCC) (Primary Dx); Dehiscence of operative wound, subsequent encounter; 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); Acute osteomyelitis (HCC); 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; Elevated sed rate; Elevated C-reactive protein (CRP); Charcot's joint of right foot; Type 2 diabetes mellitus with diabetic autonomic neuropathy, with long-term current use of insulin (HCC) Start: 01-12-2020 End: 01-12-2020 Patient encounter procedure Alena Mora Work Phone: [facility] Comment on above: Foot ulcer with fat layer exposed, right (HCC) (Primary Dx); Dehiscence of operative wound, subsequent encounter; Charcot's joint of right foot Start: 01-08-2020 End: 01-08-2020 Home visit Kylie Iglesias [facility] Comment on above: OT NON-OASIS/DISCIPL INE DISCHARGE SN ROUTINE VISIT Start: 01-05-2020 End: 01-05-2020 Patient encounter procedure Nupur Aranda [place] Work Phone: [facility] Comment on above: Foot ulcer with fat layer exposed, right (HCC) (Primary Dx); Dehiscence of operative wound, subsequent encounter Start: 01-05-2020 End: 01-05-2020 Home visit Iona Workman [facility] Comment on above: NUCLEAR RADIATION ENGINEER ROUTINE Start: 01-04-2020 End: 01-04-2020 Home visit Katie Denton [facility] Comment on above: PT NON-OASIS/DISCIPL INE DISCHARGE Start: 01-03-2020 Patient encounter procedure [id number] [facility] NURSE [id number] HC 232 Work Phone: Start: 01-02-2020 End: 01-02-2020 Home visit Kyung Shields [facility] Comment on above: MCKOY ROUTINE VISIT Start: 01-01-2020 End: 01-01-2020 Home visit [place] [facility] Comment on above: SN ROUTINE VISIT Start: 12-29-2019 End: 12-29-2019 Home visit [place] [facility] Comment on above: SN ROUTINE VISIT Start: 12-28-2019 End: 12-28-2019 Office outpatient visit 15 minutes Maria Isabel Awad Work Phone: [facility] Comment on above: Dehiscence of incisi on, initial encounter (Primary Dx); Foot ulcer with fat layer exposed, right (HCC); 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) Start: 12-28-2019 End: 12-28-2019 Office outpatient visit 40 minutes JoKno Work Phone: [facility] Comment on above: Acute osteomyelitis (HCC) (Primary Dx); 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; Elevated sed rate; Elevated C-reactive protein (CRP); 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); Dehiscence of wound of skin, initial encounter Start: 12-27-2019 End: 12-27-2019 Home visit Celena Vaughn [facility] Comment on above: INTEGRATED CIRCUIT FABRICATOR MISSED VISIT SCRAP STRIPPER HAND ROUTINE VISIT Start: 12-26-2019 End: 12-26-2019 Home visit Kyung Shields [facility] Comment on above: MCKOY ROUTINE VISIT SCRAP STRIPPER HAND ROUTINE VISIT Start: 12-25-2019 End: 12-25-2019 Home visit [place] [facility] Comment on above: SN HH ROUTINE VISIT Start: 12-23-2019 End: 12-23-2019 Home visit Ana Day [facility] Comment on above: NUCLEAR RADIATION ENGINEER HH PRN VISIT Start: 12-22-2019 End: 12-22-2019 Home visit Katie Denton [facility] Comment on above: PT INITIAL EVALUATIO N INTEGRATED CIRCUIT FABRICATOR MISSED VISIT SN IV THERAPY ROUTIN E-BILLABLE Start: 12-21-2019 End: 12-21-2019 Office outpatient visit 15 minutes Alena Mora Work Phone: [facility] Comment on above: Charcot's joint of r ight foot (Primary Dx); Type 2 diabetes mellitus with diabetic autonomic neuropathy, with long-term current use of insulin (HCC) Start: 12-21-2019 End: 12-21-2019 Office outpatient visit 40 minutes JoKno Work Phone: [facility] Comment on above: Skin ulcer of right foot with fat layer exposed (HCC) (Primary Dx); Venous insufficiency; Type 2 diabetes mellitus with diabetic autonomic neuropathy, with long-term current use of insulin (HCC); Acute osteomyelitis (HCC); 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; Elevated sed rate; Elevated C-reactive protein (CRP); 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) Start: 12-20-2019 End: 12-20-2019 Home visit Kylie Iglesias [facility] Comment on above: OT INITIAL EVALUATIO N Start: 12-19-2019 End: 12-20-2019 Home visit Celia Kovacs [facility] Comment on above: SN HH OASIS START OF CARE SN IV THERAPY ROUTIN [id number] Start: 12-15-2019 End: 12-15-2019 Admission to establishment Rohit Aguilar [facility] Start: 12-06-2019 End: 12-19-2019 Evaluation and management of inpatient Sinai Friedmanson Work Phone: [facility] Comment on above: Foot ulcer with fat layer exposed, right (HCC) (Primary Dx); 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; S/P foot surgery, right; 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); Subacute osteomyelitis of right ankle (HCC) Start: 11-30-2019 End: 12-06-2019 Evaluation and management of inpatient Boogie Marcelina Hancock Work Phone: [facility] Comment on above: Subacute osteomyelit is of right ankle (HCC); 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); Foot ulcer with fat layer exposed, right (HCC); 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; Cellulitis of right foot Start: 11-30-2019 End: 11-30-2019 Postop follow up visit related to original px Maria Isabel Awad Work Phone: [facility] Comment on above: Chronic ulcer of lef t leg with fat layer exposed (HCC) (Primary Dx); 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); Dehiscence of wound of skin, initial encounter Start: 11-30-2019 End: 11-30-2019 Office outpatient visit 40 minutes Maria Isabel Awad Work Phone: [facility] Comment on above: Acute osteomyelitis (HCC) (Primary Dx); Skin ulcer of right foot with fat layer exposed (HCC); Venous insufficiency; Type 2 diabetes mellitus with diabetic autonomic neuropathy, with long-term current use of insulin (HCC); 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; Elevated sed rate; Elevated C-reactive protein (CRP) Start: 11-20-2019 End: 11-24-2019 Subsequent hospital visit by physician Lissy Palmer Work Phone: [facility] Comment on above: Diabetes mellitus wi th Charcot's joint arthropathy (HCC) (Primary Dx); Skin ulcer of right foot with necrosis of bone (HCC); Acute osteomyelitis (HCC); 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; Gram-negative infection; IDDM (insulin dependent diabetes mellitus) (HCC) Start: 11-19-2019 End: 11-19-2019 Documentation procedure Alena Duvalleler Work Phone: [facility] Start: 11-16-2019 End: 11-16-2019 Subsequent hospital visit by physician Rohit Aguilar Work Phone: [facility] Comment on above: Other specified pre- operative examination; Coronary artery disease, angina presence unspecified, unspecified vessel or lesion type, unspecified whether [place] or transplanted heart Start: 11-10-2019 End: 11-10-2019 Patient encounter procedure Alena Tea Duvalleler Work Phone: [facility] Comment on above: Pre-op testing (Prim rachael Dx); Type 2 diabetes mellitus with hyperglycemia, without long-term current use of insulin (HCC) Start: 11-10-2019 End: 11-10-2019 Patient encounter procedure Alena Duvalleler Work Phone: [facility] Comment on above: Foot ulcer with fat layer exposed, right (HCC); 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) Start: 10-24-2019 End: 10-24-2019 Patient encounter procedure Alena Tea Duvalleler Work Phone: [facility] Comment on above: Chronic ulcer of lef t leg with fat layer exposed (HCC) (Primary Dx); Foot ulcer with fat layer exposed, right (HCC) Start: 10-10-2019 End: 10-10-2019 Patient encounter procedure Alena Mora Work Phone: [facility] Comment on above: Skin ulcer of right foot with fat layer exposed (HCC) (Primary Dx); Chronic ulcer of left leg with fat layer exposed (HCC) Start: 10-03-2019 End: 10-03-2019 Patient encounter procedure Alena Mora Work Phone: [facility] Comment on above: Skin ulcer of right foot with fat layer exposed (HCC) (Primary Dx); Chronic ulcer of left leg with fat layer exposed (HCC) Start: 09-19-2019 End: 09-19-2019 Patient encounter procedure Alena Mora Work Phone: [facility] Comment on above: Skin ulcer of right foot with fat layer exposed (HCC) (Primary Dx); Blister of left lower extremity, initial encounter; Venous insufficiency Start: 09-12-2019 End: 09-12-2019 Patient encounter procedure Alenadeanna Mora Work Phone: [facility] Comment on above: Foot ulcer with fat layer exposed, right (HCC) (Primary Dx) Start: 09-08-[address] Darrin Aguilar Work Phone: [facility] Start: 08-30-2019 End: 08-30-2019 Patient encounter procedure Alena Mora Work Phone: [facility] Comment on above: Skin ulcer of right foot with fat layer exposed (HCC) (Primary Dx); Skin ulcer of lower leg, left, with fat layer exposed (HCC) Start: 08-24-2019 End: 08-24-2019 Patient encounter procedure Alena Mora Work Phone: [facility] Comment on above: Foot ulcer with fat layer exposed, right (HCC) Start: 08-10-2019 End: 08-10-2019 Patient encounter procedure Alena Mora Work Phone: [facility] Comment on above: Skin ulcer of right foot with fat layer exposed (HCC) (Primary Dx); 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) Start: 07-27-2019 End: 07-27-2019 Patient encounter procedure Alena Mora Work Phone: [facility] Comment on above: Skin ulcer of right foot with fat layer exposed (HCC) (Primary Dx); 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) Start: 07-14-2019 End: 07-14-2019 Patient encounter procedure Alena Mora Work Phone: [facility] Comment on above: Skin ulcer of right foot with fat layer exposed (HCC) (Primary Dx); 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); Skin ulcer of right lower leg with fat layer exposed (HCC); Skin ulcer of lower leg, left, with fat layer exposed (HCC) Start: 06-13-2019 End: 06-13-2019 Patient encounter procedure Alena Mora Work Phone: [facility] Comment on above: Skin ulcer of right foot with fat layer exposed (HCC) (Primary Dx); Type 2 diabetes mellitus with diabetic autonomic neuropathy, with long-term current use of insulin (HCC); 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) Start: 05-30-2019 End: 05-30-2019 Patient encounter procedure Alena Mora Work Phone: [facility] Comment on above: Skin ulcer of right foot with fat layer exposed (HCC) (Primary Dx); Type 2 diabetes mellitus with diabetic autonomic neuropathy, with long-term current use of insulin (HCC) Start: 05-19-2019 End: 05-19-2019 Subsequent hospital visit by physician Nupur Davis Work Phone: [facility] Comment on above: Arrived Start: 05-19-2019 End: 05-19-2019 Patient encounter procedure Nupur Davis Work Phone: [facility] Comment on above: Skin ulcer of right foot with fat layer exposed (HCC) (Primary Dx); Type 2 diabetes mellitus with diabetic autonomic neuropathy, with long-term current use of insulin (HCC); 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) Start: 05-05-2019 End: 05-05-2019 Patient encounter procedure Alena Mora Work Phone: [facility] Comment on above: Foot ulcer with fat layer exposed, right (HCC) (Primary Dx); 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) Start: 04-28-2019 End: 04-28-2019 Subsequent hospital visit by physician Nupur Davis Work Phone: [facility] Comment on above: Arrived Start: 04-28-2019 End: 04-28-2019 Office outpatient visit 15 minutes Nupur Davis Work Phone: [facility] Comment on above: Diabetes mellitus wi th Charcot's joint arthropathy (HCC) (Primary Dx); Foot ulcer with fat layer exposed, right (HCC) Start: 04-21-2019 End: 04-21-2019 Patient encounter procedure Nupur Davis Work Phone: [facility] Comment on above: Diabetes mellitus wi th Charcot's joint arthropathy (HCC) (Primary Dx); Foot ulcer with fat layer exposed, right (HCC) Start: 04-14-2019 End: 04-14-2019 Patient encounter procedure Nupur Davis Work Phone: [facility] Comment on above: Foot ulcer with fat layer exposed, right (HCC) (Primary Dx); 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) Start: 04-07-2019 End: 04-07-2019 Patient encounter procedure Nupur Lopezwood Work Phone: [facility] Comment on above: Diabetes mellitus wi th Charcot's joint arthropathy (HCC) (Primary Dx); Foot ulcer with fat layer exposed, right (HCC) Start: 03-31-2019 End: 03-31-2019 Subsequent hospital visit by physician Nupur Davis Work Phone: [facility] Comment on above: Arrived Start: 01-25-2019 End: 01-25-2019 Subsequent hospital visit by physician Rosa M Robles Work Phone: [facility] Start: 01-24-2019 End: 01-24-2019 Subsequent hospital visit by physician Rosa M Robles Work Phone: [facility] Comment on above: Right foot ulcer, li mited to breakdown of skin (HCC); Chronic osteomyelitis with draining sinus, right ankle and foot (HCC); Acquired hammer toe of right foot Start: 01-20-2019 End: 01-20-2019 Patient encounter procedure Rosa M Robles Work Phone: [facility] Comment on above: Diabetes due to unde rlying condition w oth skin comp (HCC) (Primary Dx); Preop testing Start: 04-05-2017 Ambulatory Gilberto Tran Facil ity:[place] Start: 04-01-2017 End: 04-01-2017 Ambulatory Luca Paul Facility:[facility] Start: 11-16-2016 End: 11-17-2016 Ambulatory YAMILKA MONROY Facility:[facility] Procedures Date Procedure Procedure Detail Performing Clinician Start: 04-25-2025 Follow-up visit Follow-up BHAKTI CHAMBERS Start: 04-16-2025 APPLY DRESSING Alena Sab ry Abby DPM Work Phone: Start: 04-02-2025 APPLY DRESSING Alena Sab ry Abby DPM Work Phone: Start: 03-19-2025 APPLY DRESSING Alena Sab ry Abby DPM Work Phone: Start: 03-13-2025 APPLY DRESSING Alena Sab ry [place] DPM Work Phone: Start: 03-06-2025 NURSING COMMUNICATION D apple Sabry [place] DPM Work Phone: Start: 02-27-2025 APPLY DRESSING Alena Sab ry Abby DPM Work Phone: Start: 02-21-2025 Radex spine cervical 2 or 3 views Bhakti Chambers PA-C Work Phone: Start: 02-21-2025 Thyrotropin [Units/volume] in Serum or Plasma Bhakti Chambers PA-C Work Phone: Start: 02-19-2025 APPLY DRESSING Alena Sab ry [place] DPM Work Phone: Start: 02-05-2025 APPLY DRESSING Alena Sab ry Abby DPM Work Phone: Start: 01-29-2025 APPLY DRESSING Alena Sab ry [place] DPM Work Phone: Start: 01-15-2025 APPLY DRESSING Alena Sab ry [place] DPM Work Phone: Start: 01-11-2025 Ecg routine ecg w/le ast 12 lds w/i&r Bhakti Chambers PA-C Work Phone: Start: 01-08-2025 Smr prim src gram/gi emsa stain bct fungi/cell Alena Sabry Abby DPM Work Phone: Start: 12-25-2024 APPLY DRESSING Alena Sab ry Abby DPM Work Phone: Start: 12-04-2024 APPLY DRESSING Alena Sab ry Abby DPM Work Phone: Start: 11-20-2024 APPLY DRESSING Alena Sab ry Abby DPM Work Phone: Start: 11-13-2024 APPLY DRESSING Alena Sab ry [place] DPM Work Phone: Start: 11-06-2024 APPLY DRESSING Alena Sab ry Abby DPM Work Phone: Start: 11-06-2024 Lipid 1996 panel - S brando or Plasma Bhakti Chambers PA-C Work Phone: Start: 10-06-2024 Debridement subcutan eous tissue 20 sq cm/< Alena Sabry Abby DPM Work Phone: Start: 08-25-2024 Debridement subcutan eous tissue 20 sq cm/< Torie Domka 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 Work Phone: Start: 08-18-2024 Debridement subcutan eous tissue 20 sq cm/< Alena Sabry Abby DPM Work Phone: Start: 08-11-2024 Debridement subcutan eous tissue 20 sq cm/< Alena Sabry [place] DPM Work Phone: Start: 08-04-2024 Appl mltlayr carlyle leg below knee w/ankle foot Alena Sabry Abby DPM Work Phone: Start: 08-04-2024 Debridement subcutan eous tissue 20 sq cm/< Alena Sabry Abby DPM Work Phone: Start: 07-28-2024 Debridement subcutan eous tissue 20 sq cm/< Alena Sabry Abby DPM Work Phone: Start: 07-28-2024 Appl mltlayr carlyle leg below knee w/ankle foot Alena Sabry Abby DPM Work Phone: Start: 07-14-2024 Appl mltlayr carlyle leg below knee w/ankle foot Alena Sabry Abby DPM Work Phone: Start: 07-10-2024 Lipid 1996 panel - S brando or Plasma Jace Daytonhauser DO Work Phone: Start: 06-23-2024 Cul bact xcpt urine blood/stool aerobic isol Alena Sabry Abby DPM Work Phone: Start: 06-23-2024 Radex foot complete minimum 3 views Alena Sabry [place] DPM Work Phone: Start: 06-06-2024 APPLY DRESSING Alena Sab ry [place] DPM Work Phone: Start: 04-14-2024 Lipid 1996 panel - S brando or Plasma Jace Oberhauser DO Work Phone: Start: 04-14-2024 Thyrotropin [Units/volume] in Serum or Plasma Jace Oberhauser DO Work Phone: Start: 02-24-2023 SURGICAL PATHOLOGY RESULTS Michelle Beaulieu DO Work Phone: Start: 02-24-2023 Colonoscopy stoma dx including collj spec spx Rohit Aguilar MD Work Phone: Start: 02-24-2023 End: 02-24-2023 Colonoscopy Rohit Aguilar Work Phone: Start: 02-24-2023 Glucose [Mass/volume ] in Serum or Plasma Michelle Beaulieu DO Work Phone: Start: 01-06-2023 Colonoscopy stoma dx including collj spec spx Rohit Aguilar MD Work Phone: Start: 01-06-2023 Glucose [Mass/volume ] in Serum or Plasma Michelle Beaulieu DO Work Phone: Start: 11-12-2021 3 comp foot exam completed Alena Abby DPM Work Phone: Start: 08-20-2021 Cul bact xcpt urine blood/stool aerobic isol Alena Sabry [place] DPM Work Phone: Start: 10-18-2020 X-ray of right foot Din a Sabry [place] Work Phone: Start: 10-18-2020 Radiologic examinati on tibia & fibula 2 views Alena Sabry [place] Work Phone: Start: 09-06-2020 Radiologic examinati on tibia & fibula 2 views Alena Sabry Abby Work Phone: Start: 08-23-2020 Radiologic examinati on tibia & fibula 2 views Alena Sabry Abby Work Phone: Start: 08-23-2020 Debridement Alena Sabry Abby Work Phone: Start: 08-09-2020 C reactive protein [Mass/volume] in Serum or Plasma Maria Isabel Awad Work Phone: Start: 08-09-2020 Complete blood count with white cell differential, automated Marysety Shannan Work Phone: Start: 08-09-2020 Complete blood count with white cell differential, manual Maria Isabel Awad Work Phone: Start: 08-09-2020 Comprehensive metabo lic 2000 panel - Serum or Plasma Maria Isabel Awad Work Phone: Start: 08-09-2020 Erythrocyte sediment ation rate by Westergren method Maira Isabel Awad Work Phone: Start: 08-09-2020 Radiologic examinati on tibia & fibula 2 views Alena Sabmisti DuvallAbby Work Phone: Start: 08-02-2020 Debridement Alena Sabmisti DuvallAbby Work Phone: Start: 08-02-2020 Aerobic microbial culture Marysety Shannan Work Phone: Start: 08-02-2020 X-ray of right ankle Di na Tea Beller Work Phone: Start: 07-12-2020 Aerobic microbial culture Marysety Shannan Work Phone: Start: 07-12-2020 Debridement Alena Sabmisti DuvallAbby Work Phone: Start: 07-05-2020 Radiologic examinati on tibia & fibula 2 views Alena Sabry [place] Work Phone: Start: 07-05-2020 X-ray of right foot Din a Sabry [place] Work Phone: Start: 07-05-2020 Debridement Alena Sabry [place] Work Phone: Start: 06-21-2020 Debridement Alena Sabry Abby Work Phone: Start: 06-21-2020 Radiologic examinati on tibia & fibula 2 views Alena Sabry [place] Work Phone: Start: 06-21-2020 X-ray of right foot Din a Sabmisti DuvallAbby Work Phone: Start: 06-07-2020 Debridement Alena Sabry Abby Work Phone: Start: 05-24-2020 Debridement Alena Sabry Abby Work Phone: Start: 05-24-2020 X-ray of right foot Din a [place]i [place] Work Phone: Start: 05-24-2020 X-ray of right ankle Di na Tea Duvalleler Work Phone: Start: 05-24-2020 C reactive protein [Mass/volume] in Serum or Plasma Prity Shannan Work Phone: Start: 05-24-2020 Complete blood count with white cell differential, automated Prity Shannan Work Phone: Start: 05-24-2020 Complete blood count with white cell differential, manual Prity Shannan Work Phone: Start: 05-24-2020 Comprehensive metabo lic 2000 panel - Serum or Plasma Prity Shannan Work Phone: Start: 05-24-2020 Erythrocyte sediment ation rate by Westergren method Prity Shannan Work Phone: Start: 05-03-2020 Glucose [Mass/volume ] in Blood Rosaenedina hPan Work Phone: Start: 05-03-2020 Glucose [Mass/volume ] in Blood Boogie Marcelina Avlem Work Phone: Start: 05-03-2020 C reactive protein [Mass/volume] in Serum or Plasma Prity Shannan Work Phone: Start: 05-03-2020 Complete blood count with white cell differential, automated Prity Shannan Work Phone: Start: 05-03-2020 Complete blood count with white cell differential, manual Prity Shannan Work Phone: Start: 05-03-2020 Comprehensive metabo lic 2000 panel - Serum or Plasma Maria Isabel Awad Work Phone: Start: 05-03-2020 Erythrocyte sediment ation rate by Westergren method Maria Isabel Awad Work Phone: Start: 05-02-2020 Glucose [Mass/volume ] in Blood Boogie Phan Work Phone: Start: 05-02-2020 Urinalysis Maria Isabel arguelles Work Phone: Start: 05-02-2020 Glucose [Mass/volume ] in Blood Boogie Phan Work Phone: Start: 05-02-2020 Basic metabolic 2000 panel - Serum or Plasma Ramírez Damico Work Phone: Start: 05-02-2020 Glucose [Mass/volume ] in Blood Boogie Phan Work Phone: Start: 05-02-2020 Complete blood count with white cell differential, automated Ramírez Damico Work Phone: Start: 05-02-2020 Complete blood count with white cell differential, manual Ramírez Damico Work Phone: Start: 05-02-2020 Glucose [Mass/volume ] in Blood Boogie Phan Work Phone: Start: 05-01-2020 End: 05-01-2020 Glucose [Mass/volume] in Blood Alena Mora Work Phone: Start: 05-01-2020 Radiologic examinati on tibia & fibula 2 views Alena Tea Mora Work Phone: Start: 05-01-2020 X-ray of right ankle Di na Tea Mora Work Phone: Start: 05-01-2020 Radex ankle complete minimum 3 views Alena Eduardory Abby Work Phone: Start: 05-01-2020 End: 05-01-2020 ARTHRODESIS SUBTALAR Alena Sabry [place] Work Phone: Start: 05-01-2020 Radiologic examinati on tibia & fibula 2 views Alena Beller Work Phone: Start: 05-01-2020 X-ray of right foot Din deanna Beller Work Phone: Start: 05-01-2020 Basic metabolic 2000 panel - Serum or Plasma Alean Beller Work Phone: Start: 05-01-2020 Hemoglobin and Hemat ocrit panel - Blood Alena Beller Work Phone: Start: 05-01-2020 INR in Platelet poor plasma by Coagulation assay Alena Mora Work Phone: Start: 04-26-2020 Standard chest X-ray Di rosa Mora Work Phone: Start: 02-23-2020 Debridement Alena Mora Work Phone: Start: 02-16-2020 Radiologic examinati on tibia & fibula 2 views Alena Mora Work Phone: Start: 02-16-2020 X-ray of right foot Din deanna Mora Work Phone: Start: 02-09-2020 Debridement Alena Mora Work Phone: Start: 02-09-2020 C reactive protein [Mass/volume] in Serum or Plasma Prity Shannan Work Phone: Start: 02-09-2020 Complete blood count with white cell differential, automated Prity Shannan Work Phone: Start: 02-09-2020 Complete blood count with white cell differential, manual Prity Shannan Work Phone: Start: 02-09-2020 Comprehensive metabo lic 2000 panel - Serum or Plasma Prity Shannan Work Phone: Start: 02-09-2020 Erythrocyte sediment ation rate by Westergren method Prity Shannan Work Phone: Start: 02-08-2020 SCAN OTHER ORDERS Provi nakul Not In System Start: 02-02-2020 SCAN OTHER ORDERS Provi nakul Not In System Start: 02-02-2020 Debridement Alena Sabry [place] Work Phone: Start: 01-26-2020 Debridement Alena Sabry [place] Work Phone: Start: 01-19-2020 Debridement Alena Sabry Abby Work Phone: Start: 01-18-2020 SCAN OTHER ORDERS Provi nakul Not In System Start: 01-12-2020 X-ray of right foot Din a Sabry [place] Work Phone: Start: 01-12-2020 X-ray of right ankle Di na Sabry Abby Work Phone: Start: 01-12-2020 Debridement Alena Sabry [place] Work Phone: Start: 01-09-2020 SCAN OTHER ORDERS Provi nakul Not In System Start: 01-05-2020 Debridement Alena Sabry [place] Work Phone: Start: 12-28-2019 Aerobic microbial culture [facility] Work Phone: Start: 12-28-2019 C reactive protein [Mass/volume] in Serum or Plasma [facility] Shannan Work Phone: Start: 12-28-2019 Complete blood count with white cell differential, automated [facility] Shannan Work Phone: Start: 12-28-2019 Complete blood count with white cell differential, manual [facility] Shannan Work Phone: Start: 12-28-2019 Comprehensive metabo lic 2000 panel - Serum or Plasma [facility] Work Phone: Start: 12-28-2019 Erythrocyte sediment ation rate by Westergren method [facility] Shannan Work Phone: Start: 12-19-2019 Glucose [Mass/volume ] in Blood Sinai Lopez Work Phone: Start: 12-19-2019 Glucose [Mass/volume ] in Blood Sinai Lopez Work Phone: Start: 12-18-2019 Glucose [Mass/volume ] in Blood Sinai Lopez Work Phone: Start: 12-18-2019 Glucose [Mass/volume ] in Blood Sinai Lopez Work Phone: Start: 12-18-2019 C reactive protein [Mass/volume] in Serum or Plasma [facility] Work Phone: Start: 12-18-2019 Complete blood count with white cell differential, automated [facility] Shannan Work Phone: Start: 12-18-2019 Complete blood count with white cell differential, manual [facility] Shannan Work Phone: Start: 12-18-2019 Comprehensive metabo lic 2000 panel - Serum or Plasma [facility] Work Phone: Start: 12-18-2019 Erythrocyte sediment ation rate by Westergren method [facility] Work Phone: Start: 12-18-2019 Glucose [Mass/volume ] in Blood [facility] Lopez Work Phone: Start: 12-18-2019 Glucose [Mass/volume ] in Blood [facility]inai Lopez Work Phone: Start: 12-17-2019 Glucose [Mass/volume ] in Blood Sinai Lopez Work Phone: Start: 12-17-2019 Glucose [Mass/volume ] in Blood Sinai Lopez Work Phone: Start: 12-17-2019 Glucose [Mass/volume ] in Blood Sinai Lopez Work Phone: Start: 12-17-2019 Glucose [Mass/volume ] in Blood Sinai Lopez Work Phone: Start: 12-16-2019 Glucose [Mass/volume ] in Blood Sinai Lopez Work Phone: Start: 12-16-2019 Glucose [Mass/volume ] in Blood [facility]inai Lopez Work Phone: Start: 12-16-2019 Glucose [Mass/volume ] in Blood Sinai Lopez Work Phone: Start: 12-16-2019 Glucose [Mass/volume ] in Blood Sinai Lopez Work Phone: Start: 12-15-2019 End: 12-15-2019 Glucose [Mass/volume] in Blood Sinai Lopez Work Phone: Start: 12-14-2019 Glucose [Mass/volume ] in Blood Sinai Lopez Work Phone: Start: 12-14-2019 Glucose [Mass/volume ] in Blood [facility] Lopez Work Phone: Start: 12-14-2019 Glucose [Mass/volume ] in Blood Sinai Lopez Work Phone: Start: 12-14-2019 Glucose [Mass/volume ] in Blood Sinai Lopez Work Phone: Start: 12-13-2019 Glucose [Mass/volume ] in Blood Sinai Lopez Work Phone: Start: 12-13-2019 Glucose [Mass/volume ] in Blood Sinai Lopez Work Phone: Start: 12-13-2019 Glucose [Mass/volume ] in Blood Sinai Lopez Work Phone: Start: 12-13-2019 Glucose [Mass/volume ] in Blood Sinai Lopez Work Phone: Start: 12-12-2019 Glucose [Mass/volume ] in Blood Sinai Lopez Work Phone: Start: 12-12-2019 Glucose [Mass/volume ] in Blood Sinai Lopez Work Phone: Start: 12-12-2019 Glucose [Mass/volume ] in Blood Sinai Lopez Work Phone: Start: 12-12-2019 Glucose [Mass/volume ] in Blood Sinai Lopez Work Phone: Start: 12-12-2019 C reactive protein [Mass/volume] in Serum or Plasma [facility] Work Phone: Start: 12-12-2019 Complete blood count with white cell differential, automated [facility] Work Phone: Start: 12-12-2019 Complete blood count with white cell differential, manual [facility] Work Phone: Start: 12-12-2019 Comprehensive metabo lic 2000 panel - Serum or Plasma [facility] Work Phone: Start: 12-12-2019 Erythrocyte sediment ation rate by Westergren method [facility] Work Phone: Start: 12-11-2019 Glucose [Mass/volume ] in Blood [facility] Lopez Work Phone: Start: 12-11-2019 Glucose [Mass/volume ] in Blood Sinai Lopez Work Phone: Start: 12-11-2019 Glucose [Mass/volume ] in Blood Sinai Lopez Work Phone: Start: 12-11-2019 Glucose [Mass/volume ] in Blood Sinai Lopez Work Phone: Start: 12-10-2019 Glucose [Mass/volume ] in Blood Sinai Lopez Work Phone: Start: 12-10-2019 Glucose [Mass/volume ] in Blood Sinai Lopez Work Phone: Start: 12-10-2019 Culture bacterial an y source anaerobic iso&id Alena Tea Mora Work Phone: Start: 12-10-2019 Aerobic microbial culture Alena Tea Beller Work Phone: Start: 12-10-2019 Glucose [Mass/volume ] in Blood Sinai Lopez Work Phone: Start: 12-10-2019 Glucose [Mass/volume ] in Blood Sinai Lopez Work Phone: Start: 12-09-2019 Glucose [Mass/volume ] in Blood Sinai Lopez Work Phone: Start: 12-09-2019 Glucose [Mass/volume ] in Blood Sinai Lopez Work Phone: Start: 12-09-2019 H/O: surgery S/P foot surgery, right Alena Abby DPM Work Phone: Start: 12-09-2019 Glucose [Mass/volume ] in Blood Sinai Lopez Work Phone: Start: 12-09-2019 Glucose [Mass/volume ] in Blood Sinai Lopez Work Phone: Start: 12-08-2019 Glucose [Mass/volume ] in Blood Sinai Lopez Work Phone: Start: 12-08-2019 Glucose [Mass/volume ] in Blood Sinai Lopez Work Phone: Start: 12-08-2019 Glucose [Mass/volume ] in Blood Sinai Lopez Work Phone: Start: 12-08-2019 Glucose [Mass/volume ] in Blood Sinai Lopez Work Phone: Start: 12-08-2019 Glucose [Mass/volume ] in Blood Sinai Lopez Work Phone: Start: 12-08-2019 Bacteria identified in Unspecified specimen by Aerobe culture Helena Sheldon Work Phone: Start: 12-08-2019 Urinalysis Helena Sheldon Work Phone: Start: 12-08-2019 3 comp foot exam completed Sinai Lopez Start: 12-07-2019 Glucose [Mass/volume ] in Blood Sinai Lopez Work Phone: Start: 12-07-2019 Glucose [Mass/volume ] in Blood Sinai Lopez Work Phone: Start: 12-07-2019 X-ray of left ankle Mat april Lopez Work Phone: Start: 12-07-2019 Glucose [Mass/volume ] in Blood Sniai Lopez Work Phone: Start: 12-07-2019 Glucose [Mass/volume ] in Blood Sinai Lopez Work Phone: Start: 12-07-2019 Comprehensive metabo lic 2000 panel - Serum or Plasma Helena Davi Pito Work Phone: Start: 12-07-2019 Cyanocobalamin vitam in b-12 Helena Davi Sheldon Work Phone: Start: 12-07-2019 Ferritin [Mass/volum e] in Serum or Plasma Helena Sheldon Work Phone: Start: 12-07-2019 Iron [Mass/volume] i n Serum or Plasma Helena Davi Sheldon Work Phone: Start: 12-07-2019 Vitamin D, 25-hydrox y measurement Helena Davi Sheldon Work Phone: Start: 12-07-2019 Complete blood count with white cell differential, automated Helena Sheldon Work Phone: Start: 12-07-2019 Complete blood count with white cell differential, manual Helena Sheldon Work Phone: Start: 12-07-2019 Urinalysis Helena Sheldon Work Phone: Start: 12-07-2019 Bacteria identified in Unspecified specimen by Aerobe culture Helena Sheldon Work Phone: Start: 12-07-2019 Glucose [Mass/volume ] in Blood Sinai Lopez Work Phone: Start: 12-06-2019 Glucose [Mass/volume ] in Blood Sinai Lopez Work Phone: Start: 12-06-2019 Glucose [Mass/volume ] in Blood Boogie Phan Work Phone: Start: 12-06-2019 Glucose [Mass/volume ] in Blood Bo[employer]ie Phan Work Phone: Start: 12-06-2019 Glucose [Mass/volume ] in Blood Boogie Leylecoleen Work Phone: Start: 12-06-2019 Glucose [Mass/volume ] in Blood Bo[employer]ie Phan Work Phone: Start: 12-05-2019 Glucose [Mass/volume ] in Blood [employer] Work Phone: Start: 12-05-2019 Glucose [Mass/volume ] in Blood [employer]ie Phan Work Phone: Start: 12-05-2019 Glucose [Mass/volume ] in Blood Boogie Phan Work Phone: Start: 12-05-2019 Glucose [Mass/volume ] in Blood Bo[employer]an Work Phone: Start: 12-05-2019 C reactive protein [Mass/volume] in Serum or Plasma Prity Shannan Work Phone: Start: 12-05-2019 Complete blood count with white cell differential, automated Prity Shannan Work Phone: Start: 12-05-2019 Complete blood count with white cell differential, manual Prity Shannan Work Phone: Start: 12-05-2019 Comprehensive metabo lic 2000 panel - Serum or Plasma Prity Shannan Work Phone: Start: 12-05-2019 Erythrocyte sediment ation rate by Westergren method Prity Shannan Work Phone: Start: 12-05-2019 Transferrin measurement Helena Sheldon Work Phone: Start: 12-05-2019 Glucose [Mass/volume ] in Blood [employer]ie Phan Work Phone: Start: 12-05-2019 Adult depression screening assessment Alena Mora DPM Work Phone: Start: 12-05-2019 Glucose [Mass/volume ] in Blood Ahmed Mohamed Mosalem Work Phone: Start: 12-04-2019 Glucose [Mass/volume ] in Blood Ahmed Mohamed Mosalem Work Phone: Start: 12-04-2019 Glucose [Mass/volume ] in Blood Ahmed Mohamed Mosalem Work Phone: Start: 12-04-2019 Glucose [Mass/volume ] in Blood Ahmed Mohamed Mosalem Work Phone: Start: 12-04-2019 Glucose [Mass/volume ] in Blood Ahmed Mohamed Mosalem Work Phone: Start: 12-04-2019 Glucose [Mass/volume ] in Blood Ahmed Mohamed Mosalem Work Phone: Start: 12-03-2019 Glucose [Mass/volume ] in Blood med Mohamed Mosalem Work Phone: Start: 12-03-2019 Glucose [Mass/volume ] in Blood med Mohamed Mosalem Work Phone: Start: 12-03-2019 Glucose [Mass/volume ] in Blood med Georginaamed Mosalem Work Phone: Start: 12-03-2019 End: 12-03-2019 Glucose [Mass/volume] in Blood med Mohamed Mosalem Work Phone: Start: 12-02-2019 Glucose [Mass/volume ] in Blood med Mohamed Mosalem Work Phone: Start: 12-02-2019 End: 12-02-2019 Glucose [Mass/volume] in Blood med Mohamed Mosalem Work Phone: Start: 12-02-2019 Radex foot complete minimum 3 views Alena Sabry [place] Work Phone: Start: 12-02-2019 Anaerobic microbial culture Alena Sabry [place] Work Phone: Start: 12-02-2019 Tissue culture Alena Sab ry Abby Work Phone: Start: 12-02-2019 Procedure on tissue specimen Alena Mora Work Phone: Start: 12-02-2019 End: 12-02-2019 CLOSED REDUCTION PERCUTANEOUS PINNING LOWER EXTREMITY Alena Mora Work Phone: Start: 12-02-2019 End: 12-02-2019 INCISION AND DRAINAGE FOOT/ANKLE Alena Mora Work Phone: Start: 12-02-2019 Glucose [Mass/volume ] in Blood [employer] Work Phone: Start: 12-02-2019 Glucose [Mass/volume ] in Blood [employer]ie Phan Work Phone: Start: 12-02-2019 C reactive protein [Mass/volume] in Serum or Plasma JoKno Work Phone: Start: 12-02-2019 Complete blood count with white cell differential, automated [facility] Work Phone: Start: 12-02-2019 Complete blood count with white cell differential, manual [facility] Work Phone: Start: 12-02-2019 Comprehensive metabo lic 2000 panel - Serum or Plasma [facility] Work Phone: Start: 12-02-2019 Erythrocyte sediment ation rate by Westergren method Prity Shannan Work Phone: Start: 12-01-2019 Glucose [Mass/volume ] in Blood [employer]ie Phan Work Phone: Start: 12-01-2019 Glucose [Mass/volume ] in Blood [employer] Work Phone: Start: 12-01-2019 Bacteria identified in Blood by Culture Marysety Shannan Work Phone: Start: 12-01-2019 Glucose [Mass/volume ] in Blood [employer] Work Phone: Start: 12-01-2019 Glucose [Mass/volume ] in Blood Bo[employer]ie Phan Work Phone: Start: 12-01-2019 Glucose [Mass/volume ] in Blood Bo[employer]ie Phan Work Phone: Start: 12-01-2019 Basic metabolic 2000 panel - Serum or Plasma Boogie Phan Work Phone: Start: 12-01-2019 Complete blood count (hemogram) panel - Blood by Automated count [employer]ie Phan Work Phone: Start: 11-30-2019 Glucose [Mass/volume ] in Blood Bo[employer]ie [employer]an Work Phone: Start: 11-30-2019 Glucose [Mass/volume ] in Blood Boogie Phan Work Phone: Start: 11-30-2019 Complete blood count (hemogram) panel - Blood by Automated count Boogie Phan Work Phone: Start: 11-30-2019 Comprehensive metabo lic 2000 panel - Serum or Plasma Bo[employer]ie Phan Work Phone: Start: 11-30-2019 Glucose [Mass/volume ] in Blood Boogie Hancock Work Phone: Start: 11-30-2019 3 comp foot exam completed Boogie Pazd Start: 11-24-2019 Glucose [Mass/volume ] in Blood Ocean Aerozat Estela Work Phone: Start: 11-24-2019 Glucose [Mass/volume ] in Blood Bahzat Estela Work Phone: Start: 11-24-2019 Glucose [Mass/volume ] in Blood Bahzat Estela Work Phone: Start: 11-24-2019 Basic metabolic 1998 panel - Serum or Plasma [employer]ie Phan Work Phone: Start: 11-24-2019 Complete blood count with white cell differential, automated Bo[employer]ie Phan Work Phone: Start: 11-24-2019 Complete blood count with white cell differential, manual [employer]ie Phan Work Phone: Start: 11-24-2019 Magnesium [Mass/volu me] in Serum or Plasma Boogie Phan Work Phone: Start: 11-23-2019 Glucose [Mass/volume ] in Blood Bespoke Postt [employer] Work Phone: Start: 11-23-2019 Glucose [Mass/volume ] in Blood Bahzat [employer] Work Phone: Start: 11-23-2019 Radiologic exam ches t single view [facility] Shannan Work Phone: Start: 11-23-2019 Contrast echocardiography [facility] Shannan Work Phone: Start: 11-23-2019 Glucose [Mass/volume ] in Blood Besp[place] Postt [employer] Work Phone: Start: 11-23-2019 Glucose [Mass/volume ] in Blood Ocean Aerozat [employer] Work Phone: Start: 11-23-2019 Basic metabolic 1998 panel - Serum or Plasma Boogie Phan Work Phone: Start: 11-23-2019 Complete blood count with white cell differential, automated [employer] Work Phone: Start: 11-23-2019 Complete blood count with white cell differential, manual [employer] Work Phone: Start: 11-23-2019 Magnesium [Mass/volu me] in Serum or Plasma [employer] Ph[employer] Work Phone: Start: 11-22-2019 Glucose [Mass/volume ] in Blood Ocean Aerozat [employer] Work Phone: Start: 11-22-2019 Glucose [Mass/volume ] in Blood [employer]Mitra [employer] Work Phone: Start: 11-22-2019 Glucose [Mass/volume ] in Blood Ocean Aerozat [employer] Work Phone: Start: 11-22-2019 Basic metabolic 1998 panel - Serum or Plasma [employer]ie Phan Work Phone: Start: 11-22-2019 Complete blood count with white cell differential, automated [employer] Work Phone: Start: 11-22-2019 Complete blood count with white cell differential, manual Boogie Phan Work Phone: Start: 11-22-2019 Magnesium [Mass/volu me] in Serum or Plasma [employer] Ph[employer] Work Phone: Start: 11-21-2019 Aerobic microbial culture Nancy Cueto Work Phone: Start: 11-21-2019 Glucose [Mass/volume ] in Blood Baht Estela Work Phone: Start: 11-21-2019 Glucose [Mass/volume ] in Blood Bahzat Estela Work Phone: Start: 11-21-2019 Glucose [Mass/volume ] in Blood Bahzat Estela Work Phone: Start: 11-21-2019 Basic metabolic 2000 panel - Serum or Plasma Nancy Cueto Work Phone: Start: 11-21-2019 Complete blood count with white cell differential, automated Nancy Cueto Work Phone: Start: 11-21-2019 Complete blood count with white cell differential, manual Nancy Cueto Work Phone: Start: 11-20-2019 Glucose [Mass/volume ] in Blood Alena Sabry [place] Work Phone: Start: 11-20-2019 Glucose [Mass/volume ] in Blood Alena Sabry Abby Work Phone: Start: 11-20-2019 Radex foot complete minimum 3 views Alena Sabry [place] Work Phone: Start: 11-20-2019 Anaerobic microbial culture Alena Sabry Abby Work Phone: Start: 11-20-2019 Tissue culture Alena Beller Work Phone: Start: 11-20-2019 Bacteria identified in Bone by Aerobe culture Alena Beller Work Phone: Start: 11-20-2019 Bacteria identified in Unspecified specimen by Anaerobe culture Alena Beller Work Phone: Start: 11-20-2019 End: 11-20-2019 RECONSTRUCTION FOOT CHARCOT Alena Beller Work Phone: Start: 11-20-2019 Radiologic examinati on foot 2 views Alena Beller Work Phone: Start: 11-20-2019 Glucose [Mass/volume ] in Blood Alena Duvalleler Work Phone: Start: 11-20-2019 Basic metabolic 2000 panel - Serum or Plasma Alena Beller Work Phone: Start: 11-20-2019 INR in Platelet poor plasma by Coagulation assay Alena Beller Work Phone: Start: 11-20-2019 3 comp foot exam completed Joenoam TiwariEstela Start: 11-16-2019 Standard chest X-ray Ex ternal Transcribed Start: 11-10-2019 Complete blood count (hemogram) panel - Blood by Automated count Alena Beller Work Phone: Start: 11-10-2019 Comprehensive metabo lic 2000 panel - Serum or Plasma Alena Beller Work Phone: Start: 11-10-2019 INR in Platelet poor plasma by Coagulation assay Alena Beller Work Phone: Start: 11-10-2019 Magnesium [Mass/volu me] in Serum or Plasma Alena Tea Duvalleler Work Phone: Start: 11-10-2019 Debridement Alena Tea Duvalleler Work Phone: Start: 10-24-2019 Debridement Alena Sabry [place] Work Phone: Start: 10-10-2019 Debridement Alena Sabry Abby Work Phone: Start: 10-04-2019 Debridement Alena Sabry Abby Work Phone: Start: 09-19-2019 Debridement Alena Sabry Abby Work Phone: Start: 09-19-2019 Strapping unna boot Din a Sabry Abby Work Phone: Start: 09-12-2019 Debridement Alena Sabry Abby Work Phone: Start: 08-30-2019 Debridement Alena Sabry [place] Work Phone: Start: 08-24-2019 Debridement Alena Sabry [place] Work Phone: Start: 08-11-2019 Debridement Alena Sabry [place] Work Phone: Start: 07-27-2019 Debridement Alena Sabry Abby Work Phone: Start: 07-14-2019 Debridement Alena Sabry Abby Work Phone: Start: 06-13-2019 Debridement Laena Sabry [place] Work Phone: Start: 05-31-2019 Debridement Alena Sabry [place] Work Phone: Start: 05-30-2019 Tissue culture Alena Sab ry Abby Work Phone: Start: 05-19-2019 Debridement Alena Sabry [place] Work Phone: Start: 05-05-2019 Debridement Alena Sabry [place] Work Phone: Start: 04-28-2019 X-ray of right foot Marissa ecca Rosi [place] Work Phone: Start: 04-21-2019 Debridement Nupur Co urtney [place] Work Phone: Start: 04-14-2019 Debridement Nupur Co urtney [place] Work Phone: Start: 04-07-2019 Debridement Nupur haines [employer] Work Phone: Start: 03-31-2019 X-ray of right foot Marissa Aranda [employer] Work Phone: Start: 01-25-2019 SCAN OTHER ORDERS Provi nakul Not In System Start: 01-24-2019 Mri lower extrem oth /thn jt w/o contr matrl Rosa M Robles Work Phone: Start: 01-20-2019 12 lead ECG Alice Mar ie [place] Work Phone: Start: 01-20-2019 Basic metabolic 2000 panel - Serum or Plasma Rosa M Robles Work Phone: Start: 01-20-2019 Complete blood count with white cell differential, automated Rosa M Robles Work Phone: Start: 01-20-2019 Complete blood count with white cell differential, manual Rosa M Robles Work Phone: Start: 01-20-2019 Hemoglobin A1c/Hemoglobin.total in Blood Rosa M Robles Work Phone: Start: 06-15-2017 End: 06-15-2017 Follow Up Appt 6 months Coleen Gonsalez Start: 06-15-2017 End: 06-15-2017 R Sebastián Dailey MD Start: 02-04-2017 End: 02-04-2017 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 Felicia Valencia PAPER TWISTER-C Start: 02-04-2017 End: 02-04-2017 Follow Up Appt 4 months Felicia OSWALD -C Start: 11-03-2016 End: 01-25-2017 Echocardiography Sebastián Dailey MD Start: 11-03-2016 End: 11-03-2016 Electrocardiogram, complete Sebastián Dailey MD Start: 11-03-2016 End: 11-03-2016 Follow Up Appt 3 months Coleen Gonsalez Start: 11-03-2016 End: 11-03-2016 MMM Sebastián Dailey MD Start: 11-03-2016 End: 11-04-2016 Referral to scaling machine operator Sebastián Dailey MD Start: 10-16-2016 History of coronary artery bypass grafting H/O coronary artery bypass surgery Dean Peng MEDICAL SURGICAL TECH-C Comment on above: CABG X 3 with PETERS t o D1, SVG to Ramus, SVG to RPDA 10/16/16 Start: 10-02-2016 End: 01-25-2017 Left Heart Cath Sebastián Dailey MD Start: 09-22-2016 End: 09-30-2016 *BMP Sebastián Dailey MD Start: 09-22-2016 End: 09-22-2016 aPTT Sebastián Dailey MD Start: 09-22-2016 End: 09-22-2016 CBC W Auto Differential panel - Blood Sebastián Dailey MD Start: 09-22-2016 End: 09-22-2016 Chest x-ray Sebastián Dailey MD Start: 09-22-2016 End: 09-22-2016 Coagulation factor induced.INR assay in platelet poor plasma Sebastián Dailey MD Start: 09-22-2016 End: 09-22-2016 Nurse, Teaching, Wound Check (no charge) Sebastián Dailey MD Start: 09-17-2016 End: 09-22-2016 Echocardiography Sebastián Dailey MD Start: 09-17-2016 End: 09-17-2016 Electrocardiogram, complete Sebastián Dailey MD Start: 09-17-2016 End: 09-17-2016 Follow Up Appt Other Sebastián Dailey MD Start: 09-17-2016 Preoperative cardiovascular examination Pre-op cardiovascular exam Angle [place] Abdominoplasty Dean Womackk II Appendectomy Dean Izquierdo II Coronary artery bypa ss graft Dean Womackk II Liposuction of subcutaneous tissue Dean Izquierdo II Operative procedure on foot Dean Izquierdo II Operative procedure on wrist Dean Izquierdo II Plan of Treatment Date Care Activity Detail Author Start: 02-24-2033 Screening for malignant neoplasm of colon [facility] Start: 08-10-2027 DTaP/Tdap/Td Vaccines (2 - Td or Tdap) DTaP/Tdap/Td Vaccines (2 - Td or Tdap) [facility] Start: 08-10-2027 Tetanus vaccination [facility] Start: 03-15-2026 Medicare Annual Wellness Visit Medicare Annual Wellness Visit (AWV) [facility] Start: 03-14-2026 Medicare Wellness Visit Medicare Wellness Visit [facility] Start: 02-21-2026 Creatinine measurement Creatinine Level [facility] Start: 02-21-2026 Potassium measurement Potassium Level [facility] Start: 02-21-2026 Thyroid stimulating hormone measurement TSH Level [facility] Start: 02-21-2026 Urine screening for protein Diabetes: Urine Protein Screening [facility] Start: 11-06-2025 Creatinine measurement Creatinine Level [facility] Start: 11-06-2025 Lipid panel Lipid Panel [facility] Start: 11-06-2025 Potassium measurement Potassium Level [facility] Start: 07-10-2025 Creatinine measurement Creatinine Level [facility] Start: 07-10-2025 Lipid panel Lipid Panel [facility] Start: 07-10-2025 Potassium measurement Potassium Level [facility] Start: 06-30-2025 eGFR Diabetes eGFR Diabetes [facility] Start: 06-30-2025 Urine screening for protein eGFR Diabetes [facility] Start: 06-26-2025 Depression screening using PHQ-9 (Patient Health Questionnaire 9) score Depression Screening/Follow-Up (PHQ-2/9) [facility] Start: 06-20-2025 End: 06-20-2025 Patient encounter procedure 06/20/2025 1:20 PM EDT Office Visit [facility] [address] [place] [address] Bhakti Chambers PA-C [address] [place] [place] [address] [facility] Start: 06-14-2025 End: 03-14-2026 25-hydroxyvitamin D3 [Mass/volume] in Serum or Plasma Vitamin D 25-Hydroxy,Total (for eval of Vitamin D levels) Lab Routine Vitamin D deficiency Expected: 06/14/2025 (Approximate), Expires: 03/14/2026 [facility] Work Phone: Comment on above: Expected: 06/14/2025 (Approximate), Expi res: 03/14/2026 Start: 06-14-2025 End: 03-14-2026 CBC W Auto Differential panel - Blood CBC and Auto Differential Lab Routine DM (diabetes mellitus), type 2 with neurological complications Expected: 06/14/2025 (Approximate), Expires: 03/14/2026 [facility] Work Phone: Comment on above: Expected: 06/14/2025 (Approximate), Expi res: 03/14/2026 Start: 06-14-2025 End: 03-14-2026 Comprehensive metabolic 2000 panel - Serum or Plasma Comprehensive Metabolic Panel Lab Routine DM (diabetes mellitus), type 2 with neurological complications Expected: 06/14/2025 (Approximate), Expires: 03/14/2026 [facility] Work Phone: Comment on above: Expected: 06/14/2025 (Approximate), Expi res: 03/14/2026 Start: 06-14-2025 End: 03-14-2026 Ferritin [Mass/volume] in Serum or Plasma Ferritin Lab Routine DM (diabetes mellitus), type 2 with neurological complications Low ferritin Iron deficiency anemia, unspecified iron deficiency anemia type Expected: 06/14/2025 (Approximate), Expires: 03/14/2026 [facility] Work Phone: Comment on above: Expected: 06/14/2025 (Approximate), Expi res: 03/14/2026 Start: 06-14-2025 End: 03-14-2026 Gabapentin [Mass/volume] in Serum, Plasma or Blood Gabapentin Serum/Plasma Lab Routine DM (diabetes mellitus), type 2 with neurological complications Medication management Expected: 06/14/2025 (Approximate), Expires: 03/14/2026 [facility] Work Phone: Comment on above: Expected: 06/14/2025 (Approximate), Expi res: 03/14/2026 Start: 06-14-2025 End: 03-14-2026 Hemoglobin A1c/Hemoglobin.total in Blood Hemoglobin A1C Lab Routine DM (diabetes mellitus), type 2 with neurological complications Expected: 06/14/2025 (Approximate), Expires: 03/14/2026 [facility] Work Phone: Comment on above: Expected: 06/14/2025 (Approximate), Expi res: 03/14/2026 Start: 06-14-2025 End: 03-14-2026 Iron and Iron binding capacity panel - Serum or Plasma Iron and TIBC Lab Routine DM (diabetes mellitus), type 2 with neurological complications Low ferritin Iron deficiency anemia, unspecified iron deficiency anemia type Expected: 06/14/2025 (Approximate), Expires: 03/14/2026 [facility] Work Phone: Comment on above: Expected: 06/14/2025 (Approximate), Expi res: 03/14/2026 Start: 06-14-2025 End: 03-14-2026 Magnesium [Mass/volume] in Serum or Plasma Magnesium Lab Routine DM (diabetes mellitus), type 2 with neurological complications Expected: 06/14/2025 (Approximate), Expires: 03/14/2026 [facility] Work Phone: Comment on above: Expected: 06/14/2025 (Approximate), Expi res: 03/14/2026 Start: 06-14-2025 End: 03-14-2026 Opiate/Opioid/Benzo Prescription Compliance Opiate/Opioid/Benzo Prescription Compliance Lab Routine DM (diabetes mellitus), type 2 with neurological complications Medication management Expected: 06/14/2025 (Approximate), Expires: 03/14/2026 [facility] Work Phone: Comment on above: Expected: 06/14/2025 (Approximate), Expi res: 03/14/2026 Start: 06-04-2025 Influenza vaccination Influenza Vaccine (#1) [facility] Start: 05-24-2025 Hemoglobin A1c measurement [facility] Start: 04-30-2025 End: 04-30-2025 Patient encounter procedure 04/30/2025 9:45 AM EDT Office Visit [facility] Physician [facility] [address] [place] [address] Alena Mora, DPM [address] [place] [address] [facility] Start: 04-25-2025 End: 04-25-2025 Patient encounter procedure 04/25/2025 1:00 PM EDT Office Visit [facility] [address] [place] [address] Bhakti Chambers, PA-C [address] [facility] [place] [address] [facility] Start: 04-23-2025 End: 04-23-2025 Patient encounter procedure 04/23/2025 10:15 AM EDT Office Visit [facility] [address] [place] [id number] Alena Mora, DPM [address] [place] [address] [facility] Start: 04-16-2025 End: 04-16-2025 Patient encounter procedure 04/16/2025 9:45 AM EDT Office Visit [facility] [address] [place] [id number] Alena Mora, DPM [address] [place] [address] [facility] Physician [facility] Start: 04-14-2025 Creatinine measurement Creatinine Level [facility] Start: 04-14-2025 Lipid panel Lipid Panel [facility] Start: 04-14-2025 Potassium measurement Potassium Level [facility] Start: 04-14-2025 Thyroid stimulating hormone measurement TSH Level [facility] Start: 04-02-2025 End: 04-02-2025 Patient encounter procedure 04/02/2025 1:30 PM EDT Office Visit [facility] Physician [facility] [address] [place] [address] Alena Mora DPM [address] [place] [address] [facility] Physician [facility] Start: 03-19-2025 End: 03-19-2025 Patient encounter procedure 03/19/2025 2:15 PM EDT [facility] [facility] [address] [place] [address] Alena oMra DPM [address] [place] [address] [facility] Start: 03-14-2025 End: 03-14-2025 Patient encounter procedure 03/14/2025 1:00 PM EDT Office Visit [facility] [address] [place] [address] Bhakti Chambers, PAAlexisC [address] [place] [address] [facility] Start: 03-06-2025 End: 03-06-2025 Patient encounter procedure 03/06/2025 2:00 PM EDT Office Visit [facility] [address] [place] [phone] Alena Mora, DPM [address] [place] [address] [facility] Start: 02-27-2025 End: 02-27-2025 Patient encounter procedure 02/27/2025 2:30 PM EDT Office Visit [facility] [address] [phone] Alena Mora, DPM [address] [place] [address] [facility] Start: 02-19-2025 End: 02-19-2025 Patient encounter procedure 02/19/2025 1:45 PM EDT Office Visit [facility] [address] [place] [address] Alena Mora, DPM [address] [place] [address] [facility] Start: 02-12-2025 End: 02-12-2025 Patient encounter procedure 02/12/2025 2:00 PM EDT Office Visit [facility] [address] [place] [address] Alena Mora, DPM [address] [place] [address] [facility] Start: 02-03-2025 Hemoglobin A1c measurement [facility] Start: 01-29-2025 End: 01-29-2025 Patient encounter procedure 01/29/2025 1:15 PM EDT Office Visit [facility] [address] [place] [address] Alena Mora, DPM [address] [place] [address] [facility] Start: 01-11-2025 End: 01-11-2026 25-hydroxyvitamin D3 [Mass/volume] in Serum or Plasma Vitamin D 25-Hydroxy,Total (for eval of Vitamin D levels) Lab Routine Vitamin D deficiency Expected: 01/11/2025 (Approximate), Expires: 01/11/2026 [facility] Work Phone: Comment on above: Expected: 01/11/2025 (Approximate), Expi res: 01/11/2026 Start: 01-11-2025 End: 01-11-2026 CBC W Auto Differential panel - Blood CBC and Auto Differential Lab Routine DM (diabetes mellitus), type 2 with neurological complications Expected: 01/11/2025 (Approximate), Expires: 01/11/2026 [facility] Work Phone: Comment on above: Expected: 01/11/2025 (Approximate), Expi res: 01/11/2026 Start: 01-11-2025 End: 01-11-2026 Comprehensive metabolic 2000 panel - Serum or Plasma Comprehensive Metabolic Panel Lab Routine DM (diabetes mellitus), type 2 with neurological complications Expected: 01/11/2025 (Approximate), Expires: 01/11/2026 [facility] Work Phone: Comment on above: Expected: 01/11/2025 (Approximate), Expi res: 01/11/2026 Start: 01-11-2025 End: 01-11-2026 Ferritin [Mass/volume] in Serum or Plasma Ferritin Lab Routine Iron deficiency anemia, unspecified iron deficiency anemia type Expected: 01/11/2025 (Approximate), Expires: 01/11/2026 [facility] Work Phone: Comment on above: Expected: 01/11/2025 (Approximate), Expi res: 01/11/2026 Start: 01-11-2025 End: 01-11-2026 Hemoglobin A1c/Hemoglobin.total in Blood Hemoglobin A1C Lab Routine DM (diabetes mellitus), type 2 with neurological complications Expected: 01/11/2025 (Approximate), Expires: 01/11/2026 [facility] Work Phone: Comment on above: Expected: 01/11/2025 (Approximate), Expi res: 01/11/2026 Start: 01-11-2025 End: 01-11-2026 Iron and Iron binding capacity panel - Serum or Plasma Iron and TIBC Lab Routine Iron deficiency anemia, unspecified iron deficiency anemia type Expected: 01/11/2025 (Approximate), Expires: 01/11/2026 [facility] Work Phone: Comment on above: Expected: 01/11/2025 (Approximate), Expi res: 01/11/2026 Start: 01-11-2025 End: 01-11-2026 Magnesium [Mass/volume] in Serum or Plasma Magnesium Lab Routine DM (diabetes mellitus), type 2 with neurological complications Expected: 01/11/2025 (Approximate), Expires: 01/11/2026 [facility] Work Phone: Comment on above: Expected: 01/11/2025 (Approximate), Expi res: 01/11/2026 Start: 01-11-2025 End: 01-11-2026 Microalbumin/Creatinine [Mass Ratio] in Urine Albumin-Creatinine Ratio, Urine Random Lab Routine DM (diabetes mellitus), type 2 with neurological complications Expected: 01/11/2025 (Approximate), Expires: 01/11/2026 [facility] Work Phone: Comment on above: Expected: 01/11/2025 (Approximate), Expi res: 01/11/2026 Start: 01-11-2025 End: 01-11-2026 Prostate specific Ag [Mass/volume] in Serum or Plasma Prostate Specific Antigen, Screen Lab Routine Screening PSA (prostate specific antigen) Expected: 01/11/2025 (Approximate), Expires: 01/11/2026 [facility] Work Phone: Comment on above: Expected: 01/11/2025 (Approximate), Expi res: 01/11/2026 Start: 01-11-2025 End: 01-11-2026 Thyrotropin [Units/volume] in Serum or Plasma Thyroid Stimulating Hormone Lab Routine Acquired hypothyroidism Expected: 01/11/2025 (Approximate), Expires: 01/11/2026 [facility] Work Phone: Comment on above: Expected: 01/11/2025 (Approximate), Expi res: 01/11/2026 Start: 01-11-2025 End: 01-11-2026 Thyroxine (T4) free [Mass/volume] in Serum or Plasma Thyroxine, Free Lab Routine Acquired hypothyroidism Expected: 01/11/2025 (Approximate), Expires: 01/11/2026 [facility] Work Phone: Comment on above: Expected: 01/11/2025 (Approximate), Expi res: 01/11/2026 Start: 01-11-2025 End: 01-11-2026 XR Cervical spine 2 or 3 Views XR cervical spine 2-3 views Imaging Routine Cervicalgia Expected: 01/11/2025, Expires: 01/11/2026 [facility] Work Phone: Comment on above: Expected: 01/11/2025, Expires: Start: 01-08-2025 End: 01-08-2025 Patient encounter procedure 01/08/2025 2:30 PM EDT Office Visit [facility] [address] [place] [address] Alena Mora, DPM [address] [place] [address] [facility] Start: 12-25-2024 End: 12-25-2024 Patient encounter procedure 12/25/2024 2:00 PM EDT Office Visit [facility] [address] [place] [address] Alena Mora, DPM [address] [place] [address] [facility] Start: 12-21-2024 Hemoglobin A1c measurement A1C [facility] Start: 12-04-2024 End: 12-04-2024 Patient encounter procedure 12/04/2024 2:30 PM EST Office Visit [facility] [address] [place] [address] Alena Mora, DPM [address] [place] [address] [facility] Start: 11-20-2024 End: 11-20-2024 Patient encounter procedure 11/20/2024 2:30 PM EST Office Visit [facility] [address] [place] [address] Alena Mora, DPM [address] [place] [address] [facility] Start: 10-20-2024 End: 10-20-2024 Patient encounter procedure 10/20/2024 9:15 AM EST Office Visit [facility] [address] [place] [address] Alena Mora, DPM [address] [place] [address] Discharge Disposition: Home [facility] Start: 10-15-2024 Hemoglobin A1c measurement A1C [facility] Start: 10-10-2024 Hemoglobin A1c measurement [facility] Start: 10-06-2024 End: 10-06-2024 Patient encounter procedure 10/06/2024 9:15 AM EST Office Visit [facility] [address] [place] [address] Alena Moar, DPM [address] [place] [address] Discharge Disposition: Home [facility] Start: 09-22-2024 Hemoglobin A1c measurement [facility] Start: 09-22-2024 End: 09-22-2024 Patient encounter procedure 09/22/2024 9:15 AM EST Office Visit [facility] [address] [facility] [place] [address] Alena Mora, DPM [address] [place] [address] Discharge Disposition: Home [facility] Start: 09-15-2024 End: 09-15-2024 Patient encounter procedure 09/15/2024 10:30 AM EST Office Visit [facility] [address] [facility] [place] [address] Alena Mora, DPM [address] [place] [address] Discharge Disposition: [facility] Start: 09-01-2024 End: 09-01-2024 Patient encounter procedure 09/01/2024 11:00 AM EST Office Visit [facility] [address] [facility] [address] Alena Mora, DPM [address] [place] [address] Discharge Disposition: [facility] Start: 08-28-2024 End: 08-28-2024 Patient encounter procedure 08/28/2024 8:00 AM EST Appointment [address] [address] Ana Rios RN [facility] Start: 08-25-2024 End: 08-25-2024 Patient encounter procedure 08/25/2024 9:00 AM EST Office Visit [facility] [address] [facility] [address] Torie Avendano CNP [address] [place] [address] Discharge Disposition: Home [facility] Start: 08-23-2024 End: 08-23-2024 Home visit 08/23/2024 8:00 AM EST Home Care Visit [address] [address] Ana Rios RN [facility] Start: 08-21-2024 End: 08-21-2024 Home visit 08/21/2024 9:30 AM EST Home Care Visit [address] [address] Ana Rios RN [facility] Start: 08-18-2024 End: 08-18-2024 Patient encounter procedure 08/18/2024 8:45 AM EST Office Visit [facility] [address] [facility] [place] [address] Alena Mora, ELIU [address] [place] [address] Discharge Disposition: Home [facility] Start: 08-16-2024 End: 08-16-2024 Home visit 08/16/2024 9:30 AM EST Home Care Visit [address] [address] Ana Rios RN [facility] Start: 08-14-2024 End: 08-14-2024 Home visit 08/14/2024 11:00 AM EST Home Care Visit [address] [address] Ana Rios RN [facility] Start: 08-11-2024 End: 08-11-2024 Patient encounter procedure 08/11/2024 9:45 AM EST Office Visit [facility] [address] [place] [address] Alena Mora DPM [address] [place] [address] Discharge Disposition: Home [facility] Start: 08-09-2024 End: 08-09-2024 Home visit 08/09/2024 11:00 AM EST Home Care Visit [address] [address] Ana Rios RN [facility] Start: 08-07-2024 End: 08-07-2024 Home visit 08/07/2024 8:00 AM EST Home Care Visit [address] [address] Ana Rios RN [facility] Start: 08-04-2024 End: 08-04-2024 Patient encounter procedure 08/04/2024 10:15 AM EDT Office Visit [facility] [address] [place] [address] Alena Mora DPM [address] [place] [address] Discharge Disposition: Home [facility] Start: 08-02-2024 End: 08-02-2024 Home visit 08/02/2024 11:00 AM EDT Home Care Visit [address] [address] Ana Riso RN [facility] Start: 07-31-2024 End: 07-31-2024 Home visit 07/31/2024 12:30 PM EDT Home Care Visit [address] [address] Ana Rios RN [facility] Start: 07-28-2024 End: 07-28-2024 Patient encounter procedure 07/28/2024 10:45 AM EDT Office Visit [facility] [address] [place] [address] Alena Mora DPM [address] [place] [address] Discharge Disposition: Home [facility] Start: 07-26-2024 End: 07-26-2024 Home visit 07/26/2024 2:00 PM EDT Home Care Visit [address] [address] Ana Rios RN [facility] Start: 07-24-2024 End: 07-24-2025 CBC W Auto Differential panel - Blood CBC and Auto Differential Lab Routine Type 2 diabetes mellitus without complication, without long-term current use of insulin (Multi) Expected: 07/24/2024 (Approximate), Expires: 07/24/2025 [facility] Work Phone: Comment on above: Expected: 07/24/2024 (Approximate), Expi res: 07/24/2025 Start: 07-24-2024 End: 07-24-2025 Comprehensive metabolic 2000 panel - Serum or Plasma Comprehensive Metabolic Panel Lab Routine Type 2 diabetes mellitus without complication, without long-term current use of insulin (Multi) Expected: 07/24/2024 (Approximate), Expires: 07/24/2025 [facility] Work Phone: Comment on above: Expected: 07/24/2024 (Approximate), Expi res: 07/24/2025 Start: 07-24-2024 End: 07-24-2025 Hemoglobin A1c/Hemoglobin.total in Blood Hemoglobin A1C Lab Routine Type 2 diabetes mellitus without complication, without long-term current use of insulin (Multi) Expected: 07/24/2024 (Approximate), Expires: 07/24/2025 [facility] Service [facility] Work Phone: Comment on above: Expected: 07/24/2024 (Approximate), Expi res: 07/24/2025 Start: 07-24-2024 End: 07-24-2025 Lipid 1996 panel - Serum or Plasma Lipid Panel Lab Routine Type 2 diabetes mellitus without complication, without long-term current use of insulin (Multi) Expected: 07/24/2024 (Approximate), Expires: 07/24/2025 [facility] Work Phone: Comment on above: Expected: 07/24/2024 (Approximate), Expi res: 07/24/2025 Start: 07-24-2024 End: 07-24-2024 Patient encounter procedure 07/24/2024 9:20 AM EDT Office Visit [place] [address] [address] Jace Reeder L, DO [address] [facility] [place] [address] [facility] Start: 07-24-2024 End: 07-24-2024 Home visit 07/24/2024 8:00 AM EDT Home Care Visit [address] [address] Ana Rios RN [facility] Start: 07-21-2024 End: 07-21-2024 Patient encounter procedure 07/21/2024 10:15 AM EDT Office Visit [facility] [address] [place] [address] Alena Mora, DPM [address] [place] [address] Discharge Disposition: Home [facility] Start: 07-19-2024 End: 07-19-2024 Home visit 07/19/2024 1:00 PM EDT Home Care Visit [address] [address] Ana Rios RN [facility] Start: 07-19-2024 End: 07-19-2024 Patient encounter procedure 07/19/2024 11:30 AM EDT Appointment [facility] [address] [place] [phone] [facility] Start: 07-18-2024 End: 07-18-2024 Patient encounter procedure 07/18/2024 10:30 AM EDT Office Visit [facility] [address] [place] [address] Torie Avendano, JUDD [address] [place] [address] [facility] Start: 07-17-2024 End: 07-17-2024 Home visit 07/17/2024 12:30 PM EDT Home Care Visit [address] [address] Ana Rios RN [facility] Start: 07-15-2024 Hemoglobin A1c measurement Diabetes: Hemoglobin A1C [facility] Start: 07-12-2024 End: 07-12-2024 Home visit 07/12/2024 11:00 AM EDT Home Care Visit [address] [address] Ana Rios RN [facility] Start: 07-10-2024 End: 07-10-2024 Home visit 07/10/2024 8:00 AM EDT Home Care Visit [address] [address] Ana Rios RN [facility] Start: 07-07-2024 End: 07-07-2024 Patient encounter procedure 07/07/2024 7:15 AM EDT Office Visit [facility] [address] [place] [address] Alena Mora, DPColeen [address] [place] [address] Discharge Disposition: Home [facility] Start: 07-05-2024 End: 07-05-2024 Home visit 07/05/2024 12:30 PM EDT Home Care Visit [address] [address] Ana Rios RN [facility] Start: 06-21-2024 End: 06-21-2025 Basic metabolic 2000 panel - Serum or Plasma Basic Metabolic Panel Lab Routine Leg swelling Expected: 06/21/2024 (Approximate), Expires: 06/21/2025 [facility] Service [facility] Work Phone: Comment on above: Expected: 06/21/2024 (Approximate), Expi res: 06/21/2025 Start: 06-21-2024 End: 06-21-2026 Heart Transthoracic Transthoracic Echo (TTE) Complete Echocardiography Routine Leg swelling Heart failure due to high blood pressure (Multi) Expected: 06/21/2024 (Approximate), Expires: 06/21/2026 [facility] Work Phone: Comment on above: Expected: 06/21/2024 (Approximate), Expi res: 06/21/2026 Start: 06-04-2024 COVID-19 Vaccine () COVID-19 Vaccine () [facility] Start: 06-04-2024 Influenza vaccination Influenza Vaccine (#1) [facility] Start: 04-19-2024 End: 01-18-2025 Comprehensive metabolic 2000 panel - Serum or Plasma Comprehensive Metabolic Panel Lab Routine Type 2 diabetes mellitus without complication, without long-term current use of insulin (Multi) Expected: 04/19/2024 (Approximate), Expires: 01/18/2025 [facility] Work Phone: Comment on above: Expected: 04/19/2024 (Approximate), Expi res: 01/18/2025 Start: 04-19-2024 End: 01-18-2025 Hemoglobin A1c/Hemoglobin.total in Blood Hemoglobin A1C Lab Routine Type 2 diabetes mellitus without complication, without long-term current use of insulin (Multi) Expected: 04/19/2024 (Approximate), Expires: 01/18/2025 [facility] Work Phone: Comment on above: Expected: 04/19/2024 (Approximate), Expi res: 01/18/2025 Start: 04-19-2024 End: 01-18-2025 Lipid 1996 panel - Serum or Plasma Lipid Panel Lab Routine Type 2 diabetes mellitus without complication, without long-term current use of insulin (Multi) Expected: 04/19/2024 (Approximate), Expires: 01/18/2025 [facility] Work Phone: Comment on above: Expected: 04/19/2024 (Approximate), Expi res: 01/18/2025 Start: 04-17-2024 End: 04-17-2025 Comprehensive metabolic 2000 panel - Serum or Plasma Comprehensive Metabolic Panel Lab Routine DM (diabetes mellitus), type 2 with neurological complications (Multi) Expected: 04/17/2024 (Approximate), Expires: 04/17/2025 [facility] Work Phone: Comment on above: Expected: 04/17/2024 (Approximate), Expi res: 04/17/2025 Start: 04-17-2024 End: 04-17-2025 Hemoglobin A1c/Hemoglobin.total in Blood Hemoglobin A1C Lab Routine DM (diabetes mellitus), type 2 with neurological complications (Multi) Expected: 04/17/2024 (Approximate), Expires: 04/17/2025 [facility] Service [facility] Work Phone: Comment on above: Expected: 04/17/2024 (Approximate), Expi res: 04/17/2025 Start: 04-17-2024 End: 04-17-2025 Lipid 1996 panel - Serum or Plasma Lipid Panel Lab Routine DM (diabetes mellitus), type 2 with neurological complications (Multi) Expected: 04/17/2024 (Approximate), Expires: 04/17/2025 [facility] Work Phone: Comment on above: Expected: 04/17/2024 (Approximate), Expi res: 04/17/2025 Start: 04-17-2024 End: 04-17-2024 Patient encounter procedure 04/17/2024 10:20 AM EDT Office Visit [facility] Primary [place] [address] [phone] Jace Reeder L, DO [address] [facility] [place] [address] [facility] Primary [facility] Start: 04-11-2024 End: 04-11-2024 Patient encounter procedure 04/11/2024 10:45 AM EDT Office Visit [facility] [address] [place] [address] Torie Avendano, DE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 [address] [place] [address] [facility] Start: 01-19-2024 End: 01-18-2025 Comprehensive metabolic 2000 panel - Serum or Plasma Comprehensive Metabolic Panel Lab Routine Type 2 diabetes mellitus without complication, without long-term current use of insulin (Multi) Expected: 01/19/2024 (Approximate), Expires: 01/18/2025 [facility] Work Phone: Comment on above: Expected: 01/19/2024 (Approximate), Expi res: 01/18/2025 Start: 01-19-2024 End: 01-18-2025 Hemoglobin A1c/Hemoglobin.total in Blood Hemoglobin A1C Lab Routine Type 2 diabetes mellitus without complication, without long-term current use of insulin (Multi) Expected: 01/19/2024 (Approximate), Expires: 01/18/2025 [facility] Service Area Work Phone: Comment on above: Expected: 01/19/2024 (Approximate), Expi res: 01/18/2025 Start: 01-19-2024 End: 01-18-2025 Lipid 1996 panel - Serum or Plasma Lipid Panel Lab Routine Type 2 diabetes mellitus without complication, without long-term current use of insulin (Multi) Expected: 01/19/2024 (Approximate), Expires: 01/18/2025 [facility] Work Phone: Comment on above: Expected: 01/19/2024 (Approximate), Expi res: 01/18/2025 Start: 01-19-2024 End: 01-18-2025 TSH with reflex to Free T4 if abnormal TSH with reflex to Free T4 if abnormal Lab Routine Acquired hypothyroidism Expected: 01/19/2024 (Approximate), Expires: 01/18/2025 [facility] Work Phone: Comment on above: Expected: 01/19/2024 (Approximate), Expi res: 01/18/2025 Start: 01-04-2024 End: 01-04-2024 Patient encounter procedure 01/04/2024 10:30 AM EDT Office Visit [facility] [address] [place] [address] Torie Avendano JUDD [address] [place] [address] [facility] Start: 09-20-2023 End: 09-20-2023 Patient encounter procedure 09/20/2023 10:15 AM EST Office Visit [facility] [address] [place] [address] Torie Avendano, DE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 [address] [place] [address] [facility] Start: 06-30-2023 FUV, Provider: Dean Izquierdo II, Status: Pen, Time: 9:15 AM FUV, Provider: Dean Izquierdo II, Status: Pen, Time: 9:15 AM [id number] Work Phone: Start: 06-04-2023 Influenza vaccination [facility] Start: 04-25-2023 Prostate specific antigen measurement PSA Level [facility] Start: 03-15-2023 End: 03-15-2023 Patient encounter procedure 03/15/2023 Office Visit Podiatry Torie Avendano CNP [address] [place] [address] [facility] Start: 01-04-2023 Administration of herpes zoster vaccine Zoster Vaccines (2 of 2) [facility] Start: 12-27-2022 Prostate specific antigen measurement PSA Level [facility] Start: 12-14-2022 End: 12-14-2022 Patient encounter procedure 12/14/2022 Office Visit Podiatry Torie Avendano CNP [address] [place] [address] [facility] Start: 11-12-2022 Diabetic foot examination [facility] Start: 2022 Respiratory Syncytial Virus Immunization: Risk, 60-74 Risk, or 75+ (1 - Risk 60-74 years 1-dose series) Respiratory Syncytial Virus Immunization: Risk, 60-74 Risk, or 75+ (1 - Risk 60-74 years 1-dose series) [facility] Start: 2022 RSV High Risk: (Elderly (60+) or Population) (1 - Risk 60-74 years 1-dose series) RSV High Risk: (Elderly (60+) or Population) (1 - Risk 60-74 years 1-dose series) [facility] Start: 2022 RSV patients and/or patients aged 60+ years (1 - 1-dose 60+ series) RSV patients and/or patients aged 60+ years (1 - 1-dose 60+ series) [facility] Start: 09-14-2022 End: 09-14-2022 Patient encounter procedure 09/14/2022 Office Visit Podiatry Torie Avendano, DE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 [address] [place] [address] [facility] Physician [facility] Start: 06-10-2022 End: 06-10-2022 Patient encounter procedure 06/10/2022 Office Visit Podiatry Alena Mora, DPM [address] [address] [facility] Phys[facility] Start: 06-04-2022 Influenza vaccination Sequential Influenza Vaccine (#1) [facility] Start: 05-12-2022 Hemoglobin A1c measurement A1C [facility] Start: 04-01-2022 End: 04-01-2022 Patient encounter procedure 04/01/2022 Office Visit Podiatry Alena Mora, KAYM [address] [address] [facility] Start: 03-09-2022 FUV, Provider: Dean Izquierdo II, Status: Pen, Time: 8:30 AM FUV, Provider: Dean Izquierdo II, Status: Pen, Time: 8:30 AM [id number] Work Phone: Start: 02-11-2022 End: 02-11-2022 Patient encounter procedure 02/11/2022 Office Visit Podiatry Alena Mora DPM [address] [place] [address] [facility] Physician [facility] Start: 02-09-2022 Hemoglobin A1c measurement Diabetes: Hemoglobin A1C [facility] Start: 12-20-2021 COVID-19 Vaccine (4 - Booster for Pfizer series) COVID-19 Vaccine (4 - Booster for Pfizer series) [facility] Start: 11-12-2021 End: 11-12-2021 Patient encounter procedure 11/12/2021 Office Visit Podiatry Alena Mora DPM [address] [address] [facility] Start: 10-26-2021 Hemoglobin A1c measurement A1C [facility] Start: 10-17-2021 COVID-19 Vaccine (4 - Booster for Pfizer series) COVID-19 Vaccine (4 - Booster for Pfizer series) [facility] Start: 10-09-2021 End: 10-09-2021 Patient encounter procedure 10/09/2021 Office Visit Podiatry Alena Mora DPM [address] [place] [address] [facility] Start: 07-16-2021 End: 07-16-2021 Patient encounter procedure 07/16/2021 Office Visit Podiatry Alena Mora DPM [address] [address] [facility] Start: 06-29-2021 HbA1c (Bld) [Mass fraction] A1C [facility] Start: 06-29-2021 Hemoglobin A1c measurement A1C [facility] Start: 06-04-2021 Influenza vaccination Sequential Influenza Vaccine (#1) [facility] Start: 04-09-2021 End: 04-09-2021 Patient encounter procedure 04/09/2021 Office Visit Podiatry Alena Mora DPM [address] [place] [address] [phone] [facility] Start: 01-17-2021 COVID-19 Vaccine (2 - Pfizer 2-dose series) COVID-19 Vaccine (2 - Pfizer 2-dose series) [facility] Start: 01-16-2021 End: 01-16-2021 Office Visit 01/16/2021 Office Visit Infectious Diseases Maria Isabel Awad MD [address] [facility] [address] [place] [address] [phone] [facility] Disease [facility] Start: 12-07-2020 Diabetic foot examination Foot Exam [facility] Start: 12-04-2020 Depression screening using PHQ-9 (Patient Health Questionnaire 9) score [facility] Start: 11-30-2020 Diabetic foot examination FOOT EXAM [facility] Start: 11-20-2020 Diabetic foot examination FOOT EXAM [facility] Start: 10-27-2020 HbA1c (Bld) [Mass fraction] A1C [facility] Start: 10-11-2020 End: 10-11-2020 Office Visit 10/11/2020 Office Visit Wound Care Alena Mora DPM [address] [place] [address] [phone] [facility] Start: 09-06-2020 End: 09-06-2020 Office Visit [facility] Start: 08-23-2020 End: 08-23-2020 Office Visit [facility] Start: 08-22-2020 HbA1c (Bld) [Mass fraction] A1C [facility] Start: 08-09-2020 End: 08-09-2020 Office Visit [facility] Start: 07-26-2020 End: 07-26-2020 Office Visit [facility] Start: 07-12-2020 End: 07-12-2020 Office Visit [facility] Start: 07-05-2020 End: 07-05-2020 Office Visit 07/05/2020 Office Visit Wound Care Alena Mora DPM [address] [place] [address] [phone] [facility] Start: 06-21-2020 End: 06-21-2020 Office Visit 06/21/2020 Office Visit Wound Care Alena Mora, DPM [address] [place] [address] [phone] [facility] Start: 06-07-2020 End: 06-07-2020 Office Visit [facility] Start: 06-04-2020 Influenza vaccination given Sequential Influenza Vaccine (#1) [facility] Start: 05-27-2020 HbA1c (Bld) [Mass fraction] A1C [facility] Start: 05-24-2020 End: 05-24-2020 Office Visit [facility] Start: 05-10-2020 End: 05-10-2020 Office Visit [facility] Start: 05-01-2020 End: 05-01-2020 Hospital Encounter [facility] Comment on above: RIGHT ANKLE ARTHRODESIS, SUBTALAR ARTHRO DESIS RIGHT ANKLE Start: 04-28-2020 End: 04-28-2020 Office Visit 04/28/2020 Office Visit Lab Alena Mora, DPM [address] [place] [address] [phone] [facility] Start: 04-26-2020 End: 04-26-2020 Office Visit 04/26/2020 Office Visit Wound Care Nupur Davis, DPM [address] [place] [address] [phone] [facility] Start: 04-15-2020 End: 04-15-2020 Appointment 04/15/2020 Appointment Home Health Services River Whitfield RN [facility] Start: 04-12-2020 End: 04-12-2020 Office Visit 04/12/2020 Office Visit Wound Care Alena Mora, DPM [address] [place] [address] [phone] [facility] Start: 04-10-2020 End: 04-10-2020 Home Care Visit 04/10/2020 Home Care Visit Home Health Services River Whitfield RN [facility] Start: 04-08-2020 End: 04-08-2020 Home Care Visit 04/08/2020 Home Care Visit Home Health Services River Whitfield RN [facility] Start: 04-03-2020 End: 04-03-2020 Home Care Visit 04/03/2020 Home Care Visit Home Health Services River Whitfield RN [facility] Start: 04-01-2020 End: 04-01-2020 Home Care Visit 04/01/2020 Home Care Visit Home Health Services River Whitfield RN [facility] Start: 03-27-2020 End: 03-27-2020 Home Care Visit 03/27/2020 Home Care Visit Home Health Services River Whitfield RN [facility] Start: 03-25-2020 End: 03-25-2020 Home Care Visit 03/25/2020 Home Care Visit Home Health Services River Whitfield RN [facility] Start: 03-20-2020 End: 03-20-2020 Home Care Visit 03/20/2020 Home Care Visit Home Health Services River Whitfield RN [facility] Start: 03-18-2020 End: 03-18-2020 Home Care Visit 03/18/2020 Home Care Visit Home Health Services River Whitfield RN [facility] Start: 03-15-2020 End: 03-15-2020 Office Visit [facility] Start: 03-13-2020 End: 03-13-2020 Home Care Visit 03/13/2020 Home Care Visit Home Health Services River Whitfield RN [facility] Start: 03-11-2020 End: 03-11-2020 Home Care Visit 03/11/2020 Home Care Visit Home Health Services River Whitfield RN [facility] Start: 03-06-2020 End: 03-06-2020 Home Care Visit 03/06/2020 Home Care Visit Home Health Services River Whitfield RN [facility] Start: 03-04-2020 End: 03-04-2020 Home Care Visit 03/04/2020 Home Care Visit Home Health Services River Whitfield RN [facility] Start: 03-01-2020 End: 03-01-2020 Office Visit [facility] Start: 02-28-2020 End: 02-28-2020 Home Care Visit 02/28/2020 Home Care Visit Home Health Services River Whitfield RN [facility] Start: 02-28-2020 End: 02-28-2020 Home Care Visit 02/28/2020 Home Care Visit Home Health Services River Whitfield RN [facility] Start: 02-27-2020 End: 02-27-2020 Home Care Visit 02/27/2020 Home Care Visit Home Health Services River Whitfield RN [facility] Start: 02-26-2020 End: 02-26-2020 Home Care Visit 02/26/2020 Home Care Visit Home Health Services River Whitfield RN [facility] Start: 02-23-2020 End: 02-23-2020 Office Visit [facility] Start: 02-21-2020 End: 02-21-2020 Home Care Visit 02/21/2020 Home Care Visit Home Health Services River Whitfield RN [facility] Start: 02-19-2020 End: 02-19-2020 Home Care Visit 02/19/2020 Home Care Visit Home Health Services River Whitfield RN [facility] Start: 02-16-2020 End: 02-16-2020 Office Visit [facility] Start: 02-14-2020 End: 02-14-2020 Appointment [facility] Start: 02-12-2020 End: 02-12-2020 Appointment [facility] Start: 02-09-2020 End: 02-09-2020 Office Visit [facility] Start: 02-07-2020 End: 02-07-2020 Home Care Visit [facility] Start: 02-05-2020 End: 02-05-2020 Home Care Visit 02/05/2020 Home Care Visit Home Health Services River Whitfield RN [facility] Start: 02-02-2020 End: 02-02-2020 Office Visit [facility] Start: 01-31-2020 End: 01-31-2020 Home Care Visit 01/31/2020 Home Care Visit Home Health Services Celena Vaughn PSA [facility] Start: 01-29-2020 End: 01-29-2020 Home Care Visit 01/29/2020 Home Care Visit Home Health Services River Whitfield RN [facility] Start: 01-26-2020 End: 01-26-2020 Office Visit [facility] Start: 01-24-2020 End: 01-24-2020 Home Care Visit 01/24/2020 Home Care Visit Home Health Services Celena Vaughn PSA [facility] Start: 01-22-2020 End: 01-22-2020 Home Care Visit 01/22/2020 Home Care Visit Home Health Services River Whitfield RN [facility] Start: 01-19-2020 End: 01-19-2020 Home Care Visit [facility] Start: 01-17-2020 End: 01-17-2020 Home Care Visit 01/17/2020 Home Care Visit Home Health Services Celena Vaughn PSA [facility] Start: 01-15-2020 End: 01-15-2020 Home Care Visit 01/15/2020 Home Care Visit Home Health Services River Whitfield RN [facility] Start: 01-12-2020 End: 01-12-2020 Home Care Visit [facility] Start: 01-10-2020 End: 01-10-2020 Home Care Visit [facility] Start: 01-08-2020 End: 01-08-2020 Home Care Visit [facility] Start: 01-05-2020 End: 01-05-2020 Home Care Visit [facility] Start: 01-04-2020 End: 01-04-2020 Home Care Visit 01/04/2020 Home Care Visit Home Health Services Katie Denton PT [facility] Start: 01-03-2020 End: 01-03-2020 Home Care Visit [facility] Start: 01-01-2020 End: 01-01-2020 Home Care Visit 01/01/2020 Home Care Visit Home Health Services River Whitfield RN [facility] Start: 12-29-2019 End: 12-29-2019 Home Care Visit 12/29/2019 Home Care Visit Home Health Services River Whitfield RN [facility] Start: 12-28-2019 End: 12-28-2019 Office Visit [facility] Start: 12-27-2019 End: 12-27-2019 Home Care Visit 12/27/2019 Home Care Visit Home Health Services Celena Vaughn PSA [facility] Start: 12-26-2019 End: 12-26-2019 Home Care Visit [facility] Start: 12-25-2019 End: 12-25-2019 Home Care Visit 12/25/2019 Home Care Visit Home Health Services River Whitfield RN [facility] Start: 12-22-2019 End: 12-22-2019 Home Care Visit [facility] Start: 12-21-2019 End: 12-21-2019 Office Visit [facility] Start: 12-20-2019 End: 12-20-2019 Home Care Visit 12/20/2019 Home Care Visit Home Health Services River Whitfield RN [facility] Start: 12-20-2019 End: 12-20-2019 Home Care Visit 12/20/2019 Home Care Visit Home Health Services River Whitfield RN [facility] Start: 12-07-2019 End: 12-07-2019 Treatment [facility] Start: 12-01-2019 End: 12-01-2019 Anesthesia Event 12/01/2019 Anesthesia Event Jose, Alice Escudero, DE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 [address] [place] [address] [phone] [facility] Start: 12-01-2019 End: 12-01-2019 Surgery 12/01/2019 Surgery Alena Mora, KAYM [address] [place] [address] [phone] RIGHT FOOT I&D [facility] Comment on above: RIGHT FOOT I&D Start: 11-30-2019 End: 11-30-2019 Office Visit [facility] Start: 11-29-2019 End: 11-29-2019 Office Visit 11/29/2019 Office Visit Wound Care Alena Mora, DPM [address] [place] [address] [phone] [facility] Start: 11-20-2019 End: 11-20-2019 Hospital Encounter [facility] Comment on above: RIGHT FOOT RECONSTRUCTION WITH APPLICATI ON OF CIRCULAR STATIC EXTERNAL FIXATION Start: 11-10-2019 End: 11-10-2019 Office Visit 11/10/2019 Office Visit Pre-Admission Testing [facility] Preadmission Testing Start: 11-07-2019 End: 11-07-2019 Office Visit 11/07/2019 Office Visit Wound Care AbbyAlena, DPM [address] [place] [address] [phone] [facility] Start: 10-24-2019 End: 10-24-2019 Office Visit 10/24/2019 Office Visit Wound Care Abby Alena Metcalf, DPM [address] [place] [address] [phone] [facility] Start: 10-10-2019 End: 10-10-2019 Office Visit 10/10/2019 Office Visit Wound Care Alena Mora, DPM [address] [place] [address] [phone] [facility] Start: 10-03-2019 End: 10-03-2019 Office Visit 10/03/2019 Office Visit Wound Care Alena Mora, DPM [address] [place] [address] [phone] [facility] Start: 09-19-2019 End: 09-19-2019 Office Visit 09/19/2019 Office Visit Wound Care [place] CityAlena prado, DPM [address] [place] [address] [phone] [facility] Start: 09-12-2019 End: 09-12-2019 Office Visit 09/12/2019 Office Visit Wound Care AbbyAlena prado, DPM [address] [place] [address] [phone] [facility] Start: 08-30-2019 End: 08-30-2019 Office Visit 08/30/2019 Office Visit Wound Care Alena Mora, DPM [address] [place] [address] [phone] [facility] Start: 08-17-2019 End: 08-17-2019 Office Visit 08/17/2019 Office Visit Wound Care Radha Moraa Sabry, DPM [address] [place] [address] [phone] [facility] Start: 08-10-2019 End: 08-10-2019 Office Visit 08/10/2019 Office Visit Wound Care Abby Alena Tea, DPM [address] [place] [address] [phone] [facility] Start: 07-27-2019 End: 07-27-2019 Office Visit 07/27/2019 Office Visit Wound Care Abby Alena Metcalf, DPM [address] [place] [address] [phone] [facility] Start: 07-22-2019 HbA1c (Bld) [Mass fraction] A1C [facility] Start: 06-27-2019 End: 06-27-2019 Office Visit 06/27/2019 Office Visit Wound Care Abby Alena Metcalf, DPM [address] [place] [address] [phone] [facility] Start: 06-13-2019 End: 06-13-2019 Office Visit 06/13/2019 Office Visit Wound Care Abby Alena Metcalf, DPM [address] [place] [address] [phone] [facility] Start: 06-04-2019 Influenza vaccination given [facility] Start: 05-19-2019 End: 05-19-2019 Office Visit [facility] Start: 04-28-2019 End: 04-28-2019 Office Visit 04/28/2019 Office Visit Wound Care Ryan Nupur Aranda, KAYM [address] [place] [address] [phone] [facility] Start: 04-21-2019 End: 04-21-2019 Office Visit 04/21/2019 Office Visit Wound Care Ryan Nupur Aranda, DPM [address] [place] [address] [phone] [facility] Start: 04-14-2019 End: 04-14-2019 Office Visit 04/14/2019 Office Visit Wound Care Nupur Davis Rosi, DPM [address] [place] [address] [phone] [facility] Start: 04-07-2019 End: 04-07-2019 Office Visit 04/07/2019 Office Visit Wound Care Nupur Davis Rosi, DPM [address] [place] [address] [phone] [facility] Start: 01-25-2019 Hospital Encounter [facility] Periop Comment on above: ARTHROPLASTY 2ND TOE RIGHT FOOT Start: 01-24-2019 End: 01-24-2019 Appointment 01/24/2019 Appointment Radiology Rosa M Robles, ELIU [address] [place] [address] [phone] [facility] Start: 06-04-2018 Influenza vaccination given SEQUENTIAL INFLUENZA VACCINE (#1) [facility] Start: 12-14-2017 End: 12-14-2017 Appointment Appointment [facility] Work Phone: Start: 06-15-2017 End: 06-15-2017 Appointment Appointment [facility] Work Phone: Start: 06-15-2017 End: 06-15-2017 Follow Up Appt 6 months Follow Up Appt 6 months [facility] Work Phone: Start: 06-15-2017 End: 06-15-2017 JHR JHR [facility] Work Phone: Start: 05-10-2017 End: 02-08-2017 Echocardiography Echocardiogram (complete) [facility] Work Phone: Start: 02-04-2017 End: 02-04-2017 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 [facility] Work Phone: Start: 02-04-2017 End: 02-04-2017 Endocrinology Referral Endocrinology Referral [facility] Work Phone: Start: 02-04-2017 End: 02-04-2017 Follow Up Appt 4 months Follow Up Appt 4 months [facility] Work Phone: Start: 11-03-2016 End: 01-26-2017 Cardiac Rehab Cardiac Rehab [facility] Work Phone: Start: 11-03-2016 End: 11-03-2016 Echocardiography Echocardiogram (complete) [facility] Work Phone: Start: 11-03-2016 End: 11-03-2016 Electrocardiogram, complete EKG (In office) [facility] Work Phone: Start: 11-03-2016 End: 11-03-2016 Follow Up Appt 3 months Follow Up Appt 3 months [facility] Work Phone: Start: 11-03-2016 End: 11-03-2016 MMM MMM [facility] Work Phone: Start: 10-02-2016 End: 01-25-2017 Left Heart Cath Left Heart Cath [facility] Work Phone: Start: 09-22-2016 End: 09-30-2016 *BMP *BMP [facility] Work Phone: Start: 09-22-2016 End: 09-22-2016 aPTT *PTT-Partial Thromboplastin Time [facility] Work Phone: Start: 09-22-2016 End: 09-22-2016 aPTT Coag time (PPP) *PTT-Partial Thromboplastin Time [facility] Work Phone: Start: 09-22-2016 End: 09-22-2016 CBC W Auto Differential panel - Blood *CBC without Diff [facility] Work Phone: Start: 09-22-2016 End: 09-22-2016 Chest x-ray X-Ray, Chest, PA & Lateral [facility] Work Phone: Start: 09-22-2016 End: 09-22-2016 Coagulation factor induced.INR assay in platelet poor plasma *PT/INR [facility] Work Phone: Start: 09-17-2016 End: 09-17-2016 Echocardiography Echocardiogram (complete) [facility] Work Phone: Start: 09-17-2016 End: 09-17-2016 Electrocardiogram, complete EKG (In office) [facility] Work Phone: Start: 09-17-2016 End: 09-17-2016 Follow Up Appt Other Follow Up Appt Other [facility] Work Phone: Start: 2012 Administration of herpes zoster vaccine Zoster Vaccines (1 of 2) [facility] Start: 2012 Screening for malignant neoplasm of colon [facility] Start: 2012 Zoster Vaccines (1 of 2) Zoster Vaccines (1 of 2) [facility] Start: 1984 DTaP/Tdap/Td Vaccines (1 - Tdap) DTaP/Tdap/Td Vaccines (1 - Tdap) [facility] Start: 1981 Pneumococcal vaccination Pneumococcal Vaccine (1 of 2 - PCV) [facility] Start: 1981 Pneumococcal Vaccine: Age 50+ (1 of 2 - PCV) Pneumococcal Vaccine: Age 50+ (1 of 2 - PCV) [facility] Start: 1981 Pneumococcal Vaccine: Ped or At-Risk (1 of 2 - PCV) Pneumococcal Vaccine: Ped or At-Risk (1 of 2 - PCV) [facility] Start: 1981 Urine screening for protein Diabetes: Urine Protein Screening [facility] Start: 1980 Hepatitis C antibody, confirmatory test Hepatitis C Screening [facility] Start: 1980 Hepatitis C screening Hepatitis C Screening [facility] Start: 1977 HIV screening HIV Screening [facility] Start: 1974 Adolescent depression screening assessment Depression Screening (PHQ9) [facility] Start: 1974 Depression screening using PHQ-9 (Patient Health Questionnaire 9) score Depression Screening (PHQ9) [facility] Start: 1972 Albumin DL <= 20 mg/L mass conc (U) URINE MICROALBUMIN [facility] Start: 1972 Diabetic foot examination [facility] Start: 1972 Glaucoma screening [facility] Start: 1972 Microalbumin measurement, urine, quantitative Urine Microalbumin [facility] Start: 1972 Ophthalmic examination and evaluation OPHTHALMOLOGY EXAM [facility] Start: 1972 Urine screening for protein [facility] Start: 1968 Pneumococcal Vaccine: Ped or At-Risk (1 - PCV) Pneumococcal Vaccine: Ped or At-Risk (1 - PCV) [facility] Start: 1968 Pneumococcal Vaccine: Ped or At-Risk (1 of 2 - PCV) Pneumococcal Vaccine: Ped or At-Risk (1 of 2 - PCV) [facility] Start: 1968 Pneumococcal Vaccine: Ped or At-Risk (1 of 2 - PPSV23) Pneumococcal Vaccine: Ped or At-Risk (1 of 2 - PPSV23) [facility] Start: 1968 Pneumococcal Vaccine: Ped or At-Risk (1 of 4 - PCV13) Pneumococcal Vaccine: Ped or At-Risk (1 of 4 - PCV13) [facility] Start: 1968 Pneumococcal Vaccine: Pediatrics (0 to 5 Years) and At-Risk Patients (6 to 64 Years) (1 - PCV) Pneumococcal Vaccine: Pediatrics (0 to 5 Years) and At-Risk Patients (6 to 64 Years) (1 - PCV) [facility] Start: 1968 Pneumococcal Vaccine: Pediatrics (0 to 5 Years) and At-Risk Patients (6 to 64 Years) (1 of 2 - PCV) Pneumococcal Vaccine: Pediatrics (0 to 5 Years) and At-Risk Patients (6 to 64 Years) (1 of 2 - PCV) [facility] Start: 1965 History and physical examination, annual for health maintenance Wellness Visit [facility] Start: 1965 Medicare Wellness Visit Medicare Wellness Visit [facility] Start: 1963 MMR Vaccines (1 of 1 - Standard series) MMR Vaccines (1 of 1 - Standard series) [facility] Start: 04-24-1961 COVID-19 Vaccine (#1) COVID-19 Vaccine (#1) [facility] Start: 1960 Echocardiography Echocardiogram [facility] Start: 1960 Hemoglobin A1c measurement Diabetes: Hemoglobin A1C [facility] Start: 1960 Hemoglobin A1c/Hemoglobin.total mass fraction (Bld) A1C [facility] Start: 1962 Hepatitis C antibody, confirmatory test [facility]PATITIS [facility]CRE[facility] Start: 1962 HIV screening HIV Screening [facility] Start: 1962 Lipid panel Lipid Panel [facility] Start: 1960 Medicare Annual Wellness Visit Medicare Annual Wellness Visit (AWV) [facility] Start: 1962 Prostate specific antigen measurement PSA Level [facility] Start: 1962 Screening for malignant neoplasm of colon [facility] Start: 1962 Tetanus vaccination TETANUS EVERY 10 YR [facility] Start: 1962 Thyroid stimulating hormone measurement TSH Level [facility] Start: 1962 Urine screening for protein Diabetes: Urine Protein Screening [facility] Start: 1960 Yearly Adult Physical Yearly Adult Physical [facility] Aerobic microbial culture [facility] Aerobic microbial culture Wound Aerobic Culture Microbiology Routine Blister of left foot, initial encounter Ordered: 07/09/2021 [facility] Work Phone: Comment on above: Ordered: 07/09/2021 Aerobic microbial culture Wound Aerobic Culture Microbiology Routine Chronic ulcer of right leg with fat layer exposed (HCC) 06/06/2024 2:09 PM EDT [facility] Work Phone: Aerobic microbial culture Wound Aerobic Culture Microbiology Routine Skin ulcer of second toe of left foot with fat layer exposed (HCC) 06/23/2024 11:26 AM EDT [facility] Work Phone: Aerobic microbial culture Wound Aerobic Culture Microbiology Routine Chronic ulcer of left leg with fat layer exposed (HCC) 11/20/2024 3:07 PM [facility] [employer] Work Phone: Aerobic microbial culture Wound Aerobic Culture Microbiology Routine Pressure ulcer of toe of left foot, stage 1 01/08/2025 3:25 PM EDT [facility] Work Phone: End: 05-30-2020 Anaerobic microbial culture Tissue Anaerobic Culture Microbiology Routine Skin ulcer of right foot with fat layer exposed (HCC) Type 2 diabetes mellitus with diabetic autonomic neuropathy, with long-term current use of insulin (HCC) 1 Occurrences starting 05/30/2019 until 05/30/2020 [facility] Comment on above: 1 Occurrences starting 05/30/2019 until 05/30/2020 Anaerobic microbial culture Tissue Anaerobic Culture Microbiology Routine Skin ulcer of right foot with fat layer exposed (HCC) Type 2 diabetes mellitus with diabetic autonomic neuropathy, with long-term current use of insulin (HCC) 05/30/2019 3:36 PM EDT [facility] Apply dressing Apply dressing N ursing Routine 09/10/2021 11:24 AM EST [facility] Work Phone: Bacteria identified Aer cx Nom (Unsp spec) Urine Aerobic Culture Microbiology Routine 05/02/2020 6:46 PM EDT [facility] Bacteria identified Cx Nom (Bld) [facility] End: 01-25-2021 Complete blood count with white cell differential, manual CBC and Differential Lab Routine Dehiscence of operative wound, subsequent encounter 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) Acute osteomyelitis (HCC) 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 Elevated sed rate Elevated C-reactive protein (CRP) Type 2 diabetes mellitus with diabetic autonomic neuropathy, with long-term current use of insulin ([facility]) 1 Occurrences starting 01/26/2020 until 01/25/2021 [facility] Comment on above: 1 Occurrences starting 01/26/2020 until 01/25/2021 End: 05-10-2021 Complete blood count with white cell differential, manual CBC and Differential Lab Routine Charcot's joint of right foot 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) 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 Elevated C-reactive protein (CRP) Elevated sed rate Acute osteomyelitis (HCC) 1 Occurrences starting 05/10/2020 until 05/10/2021 [facility] Comment on above: 1 Occurrences starting 05/10/2020 until 05/10/2021 End: 10-18-2021 Complete blood count with white cell differential, manual CBC and Differential Lab Routine Charcot foot due to diabetes mellitus (HCC) Closed nondisplaced transverse fracture of shaft of right tibia with routine healing, subsequent encounter Acute osteomyelitis (HCC) intermediate designer (current) use of antibiotics Elevated sed rate Elevated C-reactive protein (CRP) 1 Occurrences starting 10/18/2020 until 10/18/2021 [facility] Comment on above: 1 Occurrences starting 10/18/2020 until 10/18/2021 End: 01-25-2021 Comprehensive metabolic 2000 panel Comprehensive Metabolic Panel Lab Routine Dehiscence of operative wound, subsequent encounter 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) Acute osteomyelitis (HCC) 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 Elevated sed rate Elevated C-reactive protein (CRP) Type 2 diabetes mellitus with diabetic autonomic neuropathy, with long-term current use of insulin (HCC) 1 Occurrences starting 01/26/2020 until 01/25/2021 [facility] Comment on above: 1 Occurrences starting 01/26/2020 until 01/25/2021 End: 05-10-2021 Comprehensive metabolic 2000 panel Comprehensive Metabolic Panel Lab Routine Charcot's joint of right foot 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) 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 Elevated C-reactive protein (CRP) Elevated sed rate Acute osteomyelitis (HCC) 1 Occurrences starting 05/10/2020 until 05/10/2021 [facility] Comment on above: 1 Occurrences starting 05/10/2020 until 05/10/2021 End: 10-18-2021 Comprehensive metabolic 2000 panel Comprehensive Metabolic Panel Lab Routine Charcot foot due to diabetes mellitus (HCC) Closed nondisplaced transverse fracture of shaft of right tibia with routine healing, subsequent encounter Acute osteomyelitis (HCC) intermediate designer (current) use of antibiotics Elevated sed rate Elevated C-reactive protein (CRP) 1 Occurrences starting 10/18/2020 until 10/18/2021 [facility] Comment on above: 1 Occurrences starting 10/18/2020 until 10/18/2021 End: 11-10-2020 CRP [Mass/Vol] CRP, Inflammation Lab Routine Pre-op testing 1 Occurrences starting 11/10/2019 until 11/10/2020 [facility] Comment on above: 1 Occurrences starting 11/10/2019 until 11/10/2020 End: 01-25-2021 CRP [Mass/Vol] CRP, Inflammation Lab Routine Dehiscence of operative wound, subsequent encounter 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) Acute osteomyelitis (HCC) 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 Elevated sed rate Elevated C-reactive protein (CRP) Type 2 diabetes mellitus with diabetic autonomic neuropathy, with long-term current use of insulin (HCC) 1 Occurrences starting 01/26/2020 until 01/25/2021 [facility] Comment on above: 1 Occurrences starting 01/26/2020 until 01/25/2021 End: 05-10-2021 CRP [Mass/Vol] CRP, Inflammation Lab Routine Charcot's joint of right foot 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) 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 Elevated C-reactive protein (CRP) Elevated sed rate Acute osteomyelitis (HCC) 1 Occurrences starting 05/10/2020 until 05/10/2021 [facility] Comment on above: 1 Occurrences starting 05/10/2020 until 05/10/2021 End: 10-18-2021 CRP [Mass/Vol] CRP, Inflammation Lab Routine Charcot foot due to diabetes mellitus (HCC) Closed nondisplaced transverse fracture of shaft of right tibia with routine healing, subsequent encounter Acute osteomyelitis (HCC) intermediate designer (current) use of antibiotics Elevated sed rate Elevated C-reactive protein (CRP) 1 Occurrences starting 10/18/2020 until 10/18/2021 [facility] Comment on above: 1 Occurrences starting 10/18/2020 until 10/18/2021 DRESSING [facility] Comment on above: Ordered: 11/30/2019 Ordered: 01/19/2020 Ordered: 01/26/2020 Ordered: 12/28/2019 Ordered: 02/09/2020 Ordered: 02/16/2020 Ordered: 12/21/2019 Ordered: 01/12/2020 Ordered: 02/23/2020 Ordered: 03/01/2020 Ordered: 05/10/2020 Ordered: 05/24/2020 Ordered: 06/07/2020 Ordered: 07/12/2020 Ordered: 08/02/2020 Ordered: 08/09/2020 Ordered: 09/06/2020 Ordered: 10/18/2020 Ordered: 08/23/2020 End: 11-10-2020 ESR (Bld) [Velocity] Sedimentation Rate Lab Routine Pre-op testing 1 Occurrences starting 11/10/2019 until 11/10/2020 [facility] Comment on above: 1 Occurrences starting 11/10/2019 until 11/10/2020 End: 01-25-2021 ESR (Bld) [Velocity] Sedimentation Rate Lab Routine Dehiscence of operative wound, subsequent encounter 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) Acute osteomyelitis (HCC) 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 Elevated sed rate Elevated C-reactive protein (CRP) Type 2 diabetes mellitus with diabetic autonomic neuropathy, with long-term current use of insulin (HCC) 1 Occurrences starting 01/26/2020 until 01/25/2021 [facility] Comment on above: 1 Occurrences starting 01/26/2020 until 01/25/2021 End: 05-10-2021 ESR (Bld) [Velocity] Sedimentation Rate Lab Routine Charcot's joint of right foot 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) 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 Elevated C-reactive protein (CRP) Elevated sed rate Acute osteomyelitis (HCC) 1 Occurrences starting 05/10/2020 until 05/10/2021 [facility] Comment on above: 1 Occurrences starting 05/10/2020 until 05/10/2021 End: 10-18-2021 ESR (Bld) [Velocity] Sedimentation Rate Lab Routine Charcot foot due to diabetes mellitus (HCC) Closed nondisplaced transverse fracture of shaft of right tibia with routine healing, subsequent encounter Acute osteomyelitis (HCC) intermediate designer (current) use of antibiotics Elevated sed rate Elevated C-reactive protein (CRP) 1 Occurrences starting 10/18/2020 until 10/18/2021 [facility] Comment on above: 1 Occurrences starting 10/18/2020 until 10/18/2021 End: 11-10-2020 Ext Lab NMR Lipid Profile Ext Lab NMR Lipid Profile Lab Routine Pre-op testing 1 Occurrences starting 11/10/2019 until 11/10/2020 [facility] Comment on above: 1 Occurrences starting 11/10/2019 until 11/10/2020 End: 11-10-2020 HbA1c (Bld) [Mass fraction] Hemoglobin A1c Lab Routine Type 2 diabetes mellitus with hyperglycemia, without long-term current use of insulin ([facility]) Pre-op testing 1 Occurrences starting 11/10/2019 until 11/10/2020 [facility] Comment on above: 1 Occurrences starting 11/10/2019 until 11/10/2020 MR Foot Right Withou t Contrast [facility] Comment on above: Ordered: 04/28/2019 NM Heart Views W str ess and W radionuclide IV [facility] Tissue AFB Culture Tissue AFB Cu lture Microbiology Routine 12/02/2019 3:03 PM EST [facility] Tissue culture Tissue Aerobic C ulture Microbiology Routine Skin ulcer of right foot with fat layer exposed ([facility]) Type 2 diabetes mellitus with diabetic autonomic neuropathy, with long-term current use of insulin ([facility]) 05/30/2019 3:37 PM EDT [facility] Tissue Fungus Culture Tissue Fun abdiel Culture Microbiology Routine 12/02/2019 3:03 PM EST [facility] End: 12-08-2019 Wound Anaerobic Culture Wound Anaerobic Culture Microbiology Routine Once for 1 Occurrences starting 12/08/2019 until 12/08/2019 [facility] Comment on above: Once for 1 Occurrences starting 12/08/19 20 until 12/08/2019 End: 12-20-2020 Wound Anaerobic Culture Wound Anaerobic Culture Microbiology Routine Charcot's joint of right foot Type 2 diabetes mellitus with diabetic autonomic neuropathy, with long-term current use of insulin ([facility]) 1 Occurrences starting 12/21/2019 until 12/20/2020 [facility] Comment on above: 1 Occurrences starting 12/21/2019 until 12/20/2020 Wound Anaerobic Culture Wound An aerobic Culture Microbiology Routine Charcot's joint of right foot Type 2 diabetes mellitus with diabetic autonomic neuropathy, with long-term current use of insulin ([facility]) 12/21/2019 10:00 AM EDT [facility] End: 11-20-2019 X-ray of left ankle XR Ankle Left 3+ Views (Standard) Imaging Routine One time imaging One time imaging for 1 Occurrences starting 11/20/2019 until 11/20/2019 [facility] Comment on above: One time imaging One time imaging for 1 Occurrences starting 11/20/2019 until 11/20/2019 X-ray of left ankle XR Ankle Lef t 3+ Views (Standard) Imaging Routine 11/20/2019 11:55 AM EST [facility] X-ray of right ankle XR Ankle Ri ght 3+ Views (Standard) Imaging Routine Charcot's joint of right foot 01/12/2020 8:48 AM EDT [facility] XR Tibia Fibula Righ t 2 Views XR Tibia Fibula Right 2 Views Imaging Routine Right leg pain 08/02/2020 9:48 AM EDT [facility] Immunizations Immunization Date Immunization Notes Care Provider Fa guerline 09-08-2024 Pneumococcal conjuga te PCV21, polysaccharide [id number] conjugate, PF Bhakti Chambers PA-C Work Phone: [facility] Work Phone: 09-08-2024 Seasonal, trivalent, recombinant, injectable influenza vaccine, preservative free Bhakti Chambers PA-C Work Phone: [facility] 09-08-2024 influenza virus vaccine, unspecified formulation Alena Mora DPM Work Phone: [facility] 07-13-2023 Seasonal, quadrivalent, recombinant, injectable influenza vaccine, preservative free Jace Marinoer DO Work Phone: [facility] Work Phone: 07-13-2023 influenza virus vaccine, unspecified formulation Torie Avendano [employer]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 Work Phone: [facility] 03-10-2023 zoster vaccine recombinant Jace Oberhauser DO Work Phone: [facility] Work Phone: 11-09-2022 zoster vaccine recombinant Jace Oberhauser DO Work Phone: [facility] Work Phone: 08-06-2022 influenza, injectabl e, quadrivalent, preservative free Jace Oberhauser DO Work Phone: [facility] Work Phone: 08-22-2021 Seasonal, quadrivalent, recombinant, injectable influenza vaccine, preservative free Jace Oberhauser DO Work Phone: [facility] Work Phone: 10-31-2020 influenza, injectabl e, quadrivalent, preservative free Jace Oberhauser DO Work Phone: [facility] Work Phone: 09-03-2020 influenza, injectabl e, quadrivalent, preservative free Jace Oberhauser DO Work Phone: [facility] Work Phone: 12-01-2019 pneumococcal vaccine , unspecified formulation Ahmed Karissa [facility] 08-16-2019 influenza, injectabl e, quadrivalent, preservative free Jace Oberhauser DO Work Phone: [facility] Work Phone: 07-20-2018 influenza, injectabl e, quadrivalent, preservative free Jace Oberhauser DO Work Phone: [facility] Work Phone: 08-10-2017 tetanus toxoid, reduced diphtheria toxoid, and acellular pertussis vaccine, adsorbed Jace Reeder DO Work Phone: [facility] Work Phone: 07-28-2017 influenza, injectabl e, quadrivalent, preservative free Jace Obdiaer DO Work Phone: [facility] Work Phone: 07-20-2014 influenza, seasonal, injectable Jace Obdiaer DO Work Phone: [facility] Work Phone: NEGATED: Highlighted row has not occurred!12-06-2019 pneumococcal polysaccharide vaccine, 23 valent Boogie Hancock [facility] Comment on above: Deferred: - PT state s dane schneider had pneumonia vaccinesand is up to date until he is 67 yrs old Payers Date Payer Category Payer Self-pay [id number] 2017 Medicare HUMANA MANAGED M EDICARE HUMANA MCR ADVANTAGE CHOICE PPO xxxxxxxxx 2017-Present xxxxxxxxx [id number] 2017 Medicare [id number] 2017 Medicare [id number]. [id number] 2017 Medicare (Managed Care) HUMANA G OLD CHOICE [id number] 2017 Medicare PPO EDNAA SALOMÓN DELA CRUZ CHOICE PPO Member Subscriber Plan / Payer (Effective 2017-Present) Name: Dyllan Huertas Relation to Subscriber: Self Name: Dyllan Huertas Payer ID: [id number] ([facility]) Type: Not on file Address: [place] [id number] 2017 Medicare [id number] 2016 Unknown [id number] 1962 Unknown [id number] 2.16.840.1.682235.3.579.2. 900 1962 Unknown [id number] 2.16.840.1.573001.3.579.2. 1069 1962 Unknown [id number] 2.16.840.1.899441.3.579.2. 1069 1962 Unknown [id number] 2.16.840.1.338358.3.579.2. 356 1962 Unknown [id number] 2.16.840.1.150693.3.579.2. 902 1962 Unknown [id number] 2.16.840.1.283020.3.579.2. 902 1962 Unknown [id number] 2.16.840.1.813024.3.579.2. 903 1962 Unknown [id number] 2.16.840.1.314670.3.579.2. 903 1962 Unknown [id number] 2.16.840.1.749250.3.579.2. 903 1962 Unknown [id number] 2.16.840.1.815571.3.579.2. 903 1962 Unknown [id number] 2.16.840.1.673294.3.579.2. 903 1962 Unknown [id number] 2.16.840.1.199655.3.579.2. 903 1962 Unknown [id number] 2.16.840.1.526005.3.579.2. 3 1962 Unknown [id number] 2.16.840.1.100818.3.579.2. 903 1962 Unknown [id number] 2.16.840.1.742725.3.579.2. 1962 Unknown [id number] 2.16.840.1.590554.3.579.2. 3 1962 Unknown [id number] 2.16.840.1.553696.3.579.2. 1962 Unknown [id number] 2.16.840.1.705578.3.579.2. 903 1962 Unknown [id number] 2.16.840.1.849297.3.579.2. 1962 Unknown [id number] 2.16.840.1.296860.3.579.2. 903 1962 Unknown [id number] 2.16.840.1.869665.3.579.2. 3 1962 Unknown [id number] 2.16.840.1.134814.3.579.2. 903 1962 Unknown [id number] 2.16.840.1.471480.3.579.2. 1962 Unknown [id number] 2.16.840.1.146742.3.579.2. 903 1962 Unknown [id number] 2.16.840.1.996646.3.579.2. 1245 1962 Unknown [id number] 2.16.840.1.427229.3.579.2. 1245 1962 Unknown [id number] 2.16.840.1.636953.3.579.2. 3 1962 Unknown [id number] 2.16.840.1.105984.3.579.2. 1244 1962 Unknown [id number] 2.16.840.1.178163.3.579.2. 4 1962 Unknown [id number] 2.16.840.1.906606.3.579.2. 1243 1962 Unknown [id number] 2.16.840.1.662645.3.579.2. 1243 1962 Unknown [id number] 2.16.840.1.077346.3.579.2. 1243 1962 Unknown [id number] 2.16.840.1.461131.3.579.2. 1243 1962 Unknown [id number] 2.16.840.1.782404.3.579.2. 1962 Unknown [id number] 2.16.840.1.398469.3.579.2. 1962 Unknown [id number] 2.16.840.1.296970.3.579.2. 1962 Unknown [id number] 2.16.840.1.902638.3.579.2. 1962 Unknown [id number] 2.16.840.1.506565.3.579.2. 1962 Unknown [id number] 2.16.840.1.444708.3.579.2. 1962 Unknown [id number] 2.16.840.1.545426.3.579.2. 90 1962 Unknown [id number] 2.16.840.1.882508.3.579.2. 903 1962 Unknown [id number] 2.16.840.1.197978.3.579.2. 3 1962 Unknown [id number] 2.16.840.1.890420.3.579.2. 3 1962 Unknown [id number] 2.16.840.1.642762.3.579.2. 1962 Unknown [id number] 2.16.840.1.646251.3.579.2. 90 1962 Unknown [id number] 2.16.840.1.144542.3.579.2 1962 Unknown [id number] 2.16.840.1.700491.3.579.2 1962 Unknown [id number] 2.16.840.1.979016.3.579.2 1962 Unknown [id number] 2.16.840.1.543991.3.579.2 1962 Unknown [id number] 2.16.840.1.366912.3.579.2 1962 Unknown [id number] 2.16.840.1.236798.3.579.2. 3 1962 Unknown [id number] 2.16.840.1.305972.3.579.2 1962 Unknown [id number] 2.16.840.1.021950.3.579.2. 3 1962 Unknown [id number] 2.16.840.1.385784.3.579.2. 1962 Unknown [id number] 2.16.840.1.314139.3.579.2. 903 1962 Unknown [id number] 2.16.840.1.167369.3.579.2 1962 Unknown [id number] 2.16.840.1.007100.3.579.2. 903 1962 Unknown [id number] 2.16.840.1.208659.3.579.2. 903 1962 Unknown [id number] 2.16.840.1.482763.3.579.2. 903 1962 Unknown [id number] 2.16.840.1.067967.3.579.2. 903 1962 Unknown [id number] 2.16.840.1.747042.3.579.2. 903 1962 Unknown [id number] 2.16.840.1.044200.3.579.2. 903 Unknown [id number] Unknown Unknown [id number] 2.16.840.1.767875.3.579.2. 462 Unknown [id number] 2.16.840.1.275528.3.579.2. 462 Social History Date Type Detail Facility Start: 01-20-2019 End: 03-07-2020 Tobacco smoking status VAIS Unknown if ever smoked [facility] Start: 1960 Sex Assigned At Not on file [facility] Start: 03-31-2019 End: 01-19-2024 Tobacco smoking status NHIS Never smoker [facility] Start: 01-25-2019 Alcohol Comment occassionally [facility] Start: 05-30-2019 End: 04-23-2025 Alcohol intake Current drinker of alcohol (finding) [facility] Start: 12-06-2019 Alcohol Comment occassionally mostly beer [facility] Start: 02-22-2022 End: 03-14-2025 Exposure to SARS-CoV-2 (event) Not sure [facility] Start: 05-24-2020 End: 01-19-2024 Tobacco use and exposure Never used [facility] Exposure to SARS-CoV-2 (event) Unable to assess [facility] Start: 03-04-2022 End: 04-25-2025 Former smoker Former smoker [facility] Start: 07-16-2021 History SDOH Alcohol Comment very very rarely [facility] Start: 1960 Sex Assigned At Male W [facility] Start: 03-15-2023 End: 04-25-2025 Tobacco use panel [facility] Start: 08-28-2022 PHQ-2 Score 0 [facility] Start: 01-18-2019 Gender identity Identifies as male gender (finding) [facility] Start: 01-18-2019 Sexual orientation Heterosexual (sandhya mone) [facility] Start: 01-19-2024 End: 04-25-2025 Alcoholic beverage intake Ex-drinker (finding) [facility] Work Phone: Has the [place], gas, oil, or water [employer] threatened to shut off services in your home in past 12Mo No [facility] (I/We) worried whether (my/our) food would run out before (I/we) got money to buy more. Never true [facility] NEGATED: Highlighted row - - [id number] Work Phone: Medical Equipment Procedure Code Equipment Code Equipment Origin al Text Equipment Identifier Dates Screw 5 X 200mm Schanz Self-Drill 80mm Thrd - Sn/A [id number] Start: 11-20-2019 Synthes 3.2 Kwir e 292.69 [id number] Start: 11-20-2019 Synthes 2.5 Kwir e 292.26 [id number] Start: 11-20-2019 Wire 2mm Smooth [place] - [id number] Start: 11-20-2019 Comment on above: Description: Load 23 , Nov 18, 2019 Screw 5 X 175mm Schanz Self-Drill 60mm Thrd - [id number] Start: 11-20-2019 Comment on above: Description: Load 23 Wire 2 X 400mm Smooth Long - [id number] Start: 12-02-2019 Comment on above: Description: Load 13 0131 Bone 1cc Celluar Matrix Vivigen - [id number] Start: 05-01-2020 Screw 5 X 30mm T i Locking T25 Strdrv Im Nail - S. [id number] Start: 05-01-2020 Comment on above: Description: LOAD 2019 Cap End 0mm Ti E xt T40 Strdrv Retro Fem Nail Sprl Bld - S. [id number][facility] Start: 05-01-2020 Comment on above: Description: LOAD 2019 Blade 90mm Ti Spiral Retro Fem Nail Ex - S. [id number] Start: 05-01-2020 Comment on above: Description: 2019 Wire K 2mm Pattie - [id number] Start: 05-01-2020 Nail 10 X 300mm Ti Heidi Retro Antegrade Fem Ex Sterl - S. [id number])., [id number][facility] FDA Start: 05-01-2020 Screw 6.5 X 100m m Heidi 16mm Thrd [id number] - S. [id number][facility] Start: 05-01-2020 Comment on above: Description: LOAD 2019 [id number] Start: 08-09-2023 End: 01-19-2024 1 Lancet once daily. [id number] Start: 01-19-2024 Functional Status Date Assessment Result Facility 04-25-2025 Patient Health Questionnaire 2 item (PHQ-2) [Reported] [facility] Work Phone: 03-14-2025 Patient Health Questionnaire 2 item (PHQ-2) [Reported] [facility] Work Phone: NEGATED: Highlighted row Functional performance Functional status health issues are not documented Disease [facility] Work Phone: Mental Status Date Assessment Result Facility NEGATED: Highlighted row Cognitive function [Interpretation] Cognitive status health issues are not documented Disease [facility] Work Phone: Clinical Notes 10-16-2016 to 04-30-2025 Bhakti Chambers PA-C - 04/25/2025 1:00 PM Alena Hair DPM - 04/23/2025 10:35 AM Alena Hair DPM - 04/16/2025 10:37 AM Alena Hair DPM - 04/10/2025 11:39 PM EDT Note Date & Type Note Facility 04-30-2025 Note Established Patient Visit Alena Mora DPM Patient Name: Dyllan Huertas. . Date of : 1960, 64 y.o.. Gender: male. Subjective: Patient is a pleasant 64-year-old male who presents to clinic for follow-up evaluation of left great toe and left proximal leg wound. He has been applying Betadine wet-to-dry as instructed. No other pedal complaints at this time. Patient denies any trauma or injury. Denies fevers, chills, nausea, vomiting, chest pain, shortness of breath, or any other constitutional symptoms. Past Medical History: Diagnosis Date Acquired equinus deformity of right foot Acquired hammer toe of right foot Angina pectoris with documented spasm Calluse Cellulitis of left toe Charcot's joint, right ankle and foot Chronic osteomyelitis with draining sinus, right ankle and foot ([facility]) Complication of external fixation device with internal components Coronary artery disease Dehiscence of incision Diabetes mellitus, type 2 ([facility]) Dystrophic nail Edema Effusion of ankle and foot joint Fracture of metatarsal, closed Fungal toenail infection Hyperlipidemia Hypertension Hypothyroidism 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 ([facility]) Non-pressure chronic ulcer of other part of left foot limited to breakdown of skin ([facility]) Non-pressure chronic ulcer of other part of right foot with fat layer exposed ([facility]) limited to breakdown of skin Obesity Overflow incontinence Peripheral neuropathy Pressure ulcer of right foot, stage 2 ([facility]) S/P foot surgery, right 12/09/2019 11/20/2019Right foot reconstruction surgery with external fixation 12/02/2019 Right foot I and D Sleep apnea, obstructive does not use CPAP Tibia/fibula fracture Past Surgical History: Procedure Laterality Date APPENDECTOMY ARTHRODESIS SUBTALAR Right 05/01/2020 Procedure: RIGHT ANKLE ARTHRODESIS, SUBTALAR ARTHRODESIS RIGHT ANKLE, Bone [place] Graft From Right Fibula, Application of Splint; Surgeon: Alena Mora DPM; Location: [facility] OR; Service: Podiatry ARTHROPLASTY TOE Right 01/25/2019 Procedure: ARTHROPLASTY 2ND TOE RIGHT FOOT; Surgeon: Rosa M Robles DPM; Location: [place] [facility]; Service: Podiatry CABG 2017 CARDIAC SURGERY 2017 CABG tripe bypass CLOSED REDUCTION PERCUTANEOUS PINNING LOWER EXTREMITY N/A 12/02/2019 Procedure: ADJUSTMENT of EXTERNAL FIXATOR; Surgeon: Alena Mora DPM; Location: [facility] OR; Service: Podiatry CT COLONOSCOPY 02/24/[address] COLONOSCOPY 03/21/2023 CT COLONOSCOPY CYST REMOVED FROM CHEST N/A INCISION AND DRAINAGE FOOT AND ANKLE Right 12/02/2019 Procedure: RIGHT FOOT I&D; Surgeon: Alena Mora DPM; Location: [facility] OR; Service: Podiatry LIPOSUCTION METAL IN LEFT LEFT WRIST AND LEFT 5TH TOE Left ORIF FOOT FRACTURE Left 07/03/2013 5th metatarsal ORTHOPEDIC SURGERY WI AMPUTATION TOE INTERPHALANGEAL JOINT Left 06/29/2024 Procedure: left partial 2nd toe amputation; Surgeon: Alena Mora DPM; Location: [facility] OR; Service: Podiatry RECONSTRUCTION FOOT CHARCOT Right 11/20/2019 Procedure: RIGHT FOOT RECONSTRUCTION WITH APPLICATION OF CIRCULAR STATIC EXTERNAL FIXATION; Surgeon: Alena Mora DPM; Location: [facility] OR; Service: Podiatry RT FOOT SURGERY Right TUMMY TUCK N/A Physical Examination: BP 126/62 (BP Location: Right arm, Patient Position: Sitting, BP Cuff Size: Adult) Pulse 89 Temp 97.9 degrees F (36.6 degrees C) (Oral) General Appearance: Alert, cooperative, no distress, appears stated age. Podiatric Exam Vascular: DP and PT pulses are palpable. Capillary refill time is less than 3 secs to distal digits. Skin temperature is warm to cool from proximal tibial tuberosity to distal digit. + 2 pitting edema noted to bilateral lower extremities, improved Neurological: Gross sensation is intact. Protective sensation is absent using the [place] Asif monofilament. Dermatologic: Patient's left great toe wound has remained epithelialized. Full-thickness ulcer noted to the lateral left fifth toe, improved in size. Superficial skin ulcer noted to the anterior lateral left leg from previous blister site. Musculoskeletal: Patient is able to wiggle digits. Ankle joint range of motion is intact. Compartments soft and compressible. No calf pain Diagnoses: 1. Skin ulcer of left lower leg with fat layer exposed (HCC) 2. Pressure ulcer of toe of left foot, stage 2 ([facility]) Assessment/Plan: Patient was seen and evaluated. Discussed all clinical findings Patient has a superficial skin ulcer to the lateral left leg from prior blister is smaller but a little bit deeper. Therefore, excisional debridement is necessary to remove nonviable soft tissue and biofilm. This was performed using a #15 blade down to including subcutaneous tissue. Postdebridement wound measured 3.0 x 4.5 x 0.2 cm. Applied Adaptic and Betadine wet-to-dry to the site. Patient's ful (more content not included)... [facility] 04-25-2025 History of Present illness Narrative Subjective Patient ID: Dyllan Huertas is a 64 y.o. male who presents for Follow-up (6 WEEK F/U WITH BLOOD SUGAR LOG) HPI BS log check Med check Cardio - dr dailey (typically states prior PCP has been filling tho) CAD/ CHF - given bradycardia - January 2025 we dec coreg to 1/2 tab po bid and pt to monitor pulse and call if concerns - follow up with cardio is set in near future - he denies symptoms or concerns Iron - taking OTC 1 tab 3x/week LE edema - bumex - on 0.5 mg daily HTN- Hair - on finasteride and doing 1/2 tab M/W/F PBH - tamsulosin Stage 3 renal dz - will need to monitor and discussed concern with some meds DM Jardiance Metformin 70/30- ----40 bid Novolin R - 40 breakfast and dinner and 20-40 with evening Charcot -hx of amputation - following with wound/pod Consider endo referral Diabetic neuropathy - 12 Am -6 AM 146 6 am - 12 PM 157 12pm - 6 pm 152 6pm - 12 Am 144 Has only had glucose monitor x 1 week and states has turned it off at night time so I question all the readings. Prior finger stick he had more readings in the 200 but readings see to be improving Hold off on further change until we get updated labs - Call if high readings Preventative testing PSA February 2025 Colon - february 2023 - 4 mm polyp- repeat in 5 years - dr beaulieu [place] - NEG March 2025 Phq2 - NEG March 2025 Problem List[1] Review of Systems Constitutional: Positive for fatigue. Negative for chills and fever. HENT: Negative for congestion, rhinorrhea, sinus pain, sore throat and tinnitus. Eyes: Negative for discharge, redness and visual disturbance. Respiratory: Negative for cough, chest tightness, shortness of breath and wheezing. Cardiovascular: Negative for chest pain, palpitations and leg swelling. Gastrointestinal: Negative for abdominal pain, constipation, diarrhea, nausea and vomiting. Endocrine: Negative for cold intolerance and heat intolerance. Genitourinary: Negative for flank pain, frequency and urgency. Musculoskeletal: Positive for arthralgias. Negative for back pain, gait problem and neck pain. Skin: Negative for rash and wound. Neurological: Positive for numbness. Negative for dizziness, tremors, syncope and headaches. Hematological: Does not bruise/bleed easily. Psychiatric/Behavioral: Negative for confusion, sleep disturbance and suicidal ideas. Medical History[2] Surgical History[3] Family History[4] Social History[5] Allergies[6] Current Medications[7] Objective BP 144/82 Pulse 69 Ht 1.803 m (5' 11) Wt 123 kg (270 lb 3.2 oz) BMI 37.69 kg/m Physical Exam Vitals reviewed. Constitutional: Appearance: Normal appearance. He is obese. HENT: Head: Normocephalic. Right Ear: External ear normal. Left Ear: External ear normal. Nose: Nose normal. No congestion or rhinorrhea. Mouth/Throat: Mouth: Mucous membranes are moist. Eyes: Extraocular Movements: Extraocular movements intact. Conjunctiva/sclera: Conjunctivae normal. Pupils: Pupils are equal, round, and reactive to light. Cardiovascular: Rate and Rhythm: Normal rate and regular rhythm. Pulses: Normal pulses. Pulmonary: Effort: Pulmonary effort is normal. Breath sounds: Normal breath sounds. Abdominal: General: Bowel sounds are normal. Palpations: Abdomen is soft. Tenderness: There is no abdominal tenderness. There is no right CVA tenderness or left CVA tenderness. Musculoskeletal: General: No tenderness. Normal range of motion. Cervical back: Normal range of motion and neck supple. No tenderness. Skin: General: Skin is warm and dry. Neurological: General: No focal deficit present. Mental Status: He is alert and oriented to person, place, and time. Psychiatric: Mood and Affect: Mood normal. Behavior: Behavior normal. Testing Prior A1c February 12.7 Impression Reviewed labs and Testing on file Patient to follow diet low in cholesterol, fat, and sodium. Patient is advised to increase Exercise. Patient is recommended to lose weight. Reviewed Meds and discussed common side effects Continue as directed Patient is strongly advised to be compliant with recommendations. Return to Clinic sooner if needed. Patient denies further questions/concerns at this time Assessment/Plan Problem List Items Addressed This Visit ICD-10-CM DM (diabetes mellitus), type 2 with neurological complications - Primary E11.49 Class 2 severe obesity due to excess calories with serious comorbidity and body mass index (BMI) of 37.0 to 37.9 in adult E66.812, E66.01, Z68.37 Hypertension associated with diabetes E11.59, I15.2 FU as before [1] Patient Active Problem List Diagnosis Charcot foot due to diabetes mellitus (Multi) Benign prostatic hyperplasia with urinary obstruction DM (diabetes mellitus), type 2 with neurological complications Hypothyroidism Hyperlipidemia Class 2 severe obesity due to excess calories with serious comorbidity and body mass index (BMI) of 37.0 to 37.9 in adult Hypertension associated with diabetes AV block, 1st degree Acute on chronic combined systolic and diastolic heart failure Cervicalgia [2] Past Medical History: Diagnosis Date Diabetes mellitus (Multi) Heart disease Hypertension [3] Past Surgical History: Procedure Laterality Date OTHER SURGICAL HISTORY 01/03/2020 Coronary artery bypass graft OTHER SURGICAL HISTORY 01/03/2020 Foot surgery OTHER SURGICAL HISTORY 01/03/2020 Liposuction OTHER SURGICAL HISTORY 01/03/2020 Abdominoplasty OTHER SURGICAL HISTORY 01/03/2020 Wrist surgery OTHER SURGICAL HISTORY 01/03/2020 Appendectomy OTHER SURGICAL HISTORY 01/17/2020 Foot surgery OTHER SURGICAL HISTORY Left 06/19/2024 second toe partial amputation [4] Family History Problem Relation Name Age of Onset Other (dmii) Mother Heart disease Mother 57 Other (myocardial infarction) Father 60 - 69 Other (DMII) Sister Hypertension Other Kidney disease Other Diabetes Other Heart disease Other [5] Social History Tobacco Use Smoking status: Never Smokeless tobacco: Never Vaping Use Vaping status: Never Used Substance Use Topics Alcohol use: Not Currently Drug use: Never [6] No Known Allergies [7] Current Outpatient Medications Medication Sig Dispense Refill aspirin 81 mg EC tablet Take 1 tablet (81 mg) by mouth once daily. blood sugar diagnostic (True Metrix Glucose Test Strip) strip 1 strip once daily. 100 strip 3 bumetanide (Bumex) 0.5 mg tablet Take 1 tablet (0.5 mg) by mouth once daily. 90 tablet 3 calcium carbonate/vitamin D3 (CALCIUM 600 + D,3, ORAL) Take 1 tablet by mouth 2 times a day. carvedilol (Coreg) 25 mg tablet Take 1 tablet (25 mg) by mouth 2 times daily (morning and late afternoon). (Patient taking differently: Take 0.5 tablets (12.5 mg) by mouth 2 times daily (morning and late afternoon).) 180 tablet 3 chlorthalidone (Hygroton) 25 mg tablet Take 0.5 tablets (12.5 mg) by mouth once daily. 45 tablet 3 cholecalciferol (Vitamin D3) 50 MCG (2000 UT) tablet Take 1 tablet (50 mcg) by mouth once daily. docusate sodium (Stool Softener) 100 mg tablet Take 1 tablet (100 mg) by mouth once daily. empagliflozin (Jardiance) 25 mg Take 1 tablet (25 mg) by mouth once daily. 100 tablet 3 ergocalciferol (Vitamin D-2) 1250 mcg (50,000 units) capsule Take 1 capsule (50,000 Units) by mouth 1 (one) time per week. 13 capsule 3 fenofibrate (Triglide) 160 mg tablet Take 1 tablet (160 mg) by mouth once daily. 90 tablet 3 ferrous sulfate, 325 mg ferrous sulfate, tablet Take 1 tablet by mouth 3 times a week. finasteride (Proscar) 5 mg tablet Take 1 tablet (5 mg) by mouth once daily. (Patient taking differently: Take 1 tablet (5 mg) by mouth once daily. 1/2 TAB -W- (3 TIMES WEEKLY)) 90 tablet 3 FreeStyle Justin 3 [facility] [place] Use as instructed 1 each 0 FreeStyle Justin 3 Sensor device Change every 14 days 6 each 3 gabapentin (Neurontin) 300 mg capsule Take 1 capsule (300 mg) by mouth once daily at bedtime. 90 capsule 3 insulin NPH and regular human (NovoLIN 70/30 U-100 Insulin) 100 unit/mL (70-30) injection Inject under the skin. INJECT 46 UNITS IN THE MORNING AND 30 UNITS AT BEDTIME (Patient taking differently: Inject under the skin. INJECT 30 UNITS IN THE MORNING AND 30 UNITS AT BEDTIME) insulin regular (NovoLIN R Regular U100 Insulin) 100 unit/mL injection INJECT 4-20 UNITS WITH MEALS USING A SLIDING SCALE; INJECT NO MORE THAN 60 UNITS DAILY lancets (TRUEplus Lancets) 30 gauge [facility] [place] 1 Lancet once daily. 100 each 3 levothyroxine (Synthroid, Levoxyl) 100 mcg tablet Take 1 tablet (100 mcg) by mouth once daily in the morning. Take before meals. (Patient taking differently: Take 1 tablet (100 mcg) by mouth once daily in the morning. Take before meals. 1 TABLET 6 TIMES A WEEK) 90 tablet 3 lisinopril 20 mg tablet Take 1 tablet (20 mg) by mouth once daily. 90 tablet 3 magnesium oxide (Mag-Ox) 400 mg tablet 1 tablet (400 mg) once daily. melatonin 10 mg tablet Take 1 tablet (10 mg) by mouth once daily at bedtime. metFORMIN XR 500 mg 24 hr tablet Take 2 tablets (1,000 mg) by mouth 2 times daily (morning and late afternoon). 336 tablet 3 multivitamin tablet Take 1 tablet by mouth once daily. omega 6-thw-wrp-fish oil (Fish OiL) 1,000 mg (120 mg-180 mg) capsule Take by mouth. rosuvastatin (Crestor) 20 mg tablet Take 1 tablet (20 mg) by mouth once daily. 90 tablet 3 tamsulosin (Flomax) 0.4 mg 24 hr capsule Take 1 capsule (0.4 mg) by mouth once daily. 90 capsule 3 mupirocin (Bactroban) 2 % ointment APPLY OINTMENT TOPICALLY THREE TIMES DAILY (Patient not taking: Reported on 01/11/2025) No current facility-administered medications for this visit. documented in this encounter [facility] Work Phone: 04-23-2025 Note Established Patient Visit Alena Mora DPM Patient Name: yDllan Huertas. . Date of : 1960, 64 y.o.. Gender: male. Subjective: Patient is a pleasant 64-year-old male who presents to clinic for follow-up evaluation of left great toe and left fifth toe pressure ulceration. Patient is also following up for his left third toe blister and proximal left leg blister. He has been applying Betadine wet-to-dry as instructed. No other pedal complaints at this time. Patient denies any trauma or injury. Denies fevers, chills, nausea, vomiting, chest pain, shortness of breath, or any other constitutional symptoms. Past Medical History: Diagnosis Date Acquired equinus deformity of right foot Acquired hammer toe of right foot Angina pectoris with documented spasm Calluse Cellulitis of left toe Charcot's joint, right ankle and foot Chronic osteomyelitis with draining sinus, right ankle and foot ([facility]) Complication of external fixation device with internal components Coronary artery disease Dehiscence of incision Diabetes mellitus, type 2 ([facility]) Dystrophic nail Edema Effusion of ankle and foot joint Fracture of metatarsal, closed Fungal toenail infection Hyperlipidemia Hypertension Hypothyroidism 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 ([facility]) Non-pressure chronic ulcer of other part of left foot limited to breakdown of skin ([facility]) Non-pressure chronic ulcer of other part of right foot with fat layer exposed ([facility]) limited to breakdown of skin Obesity Overflow incontinence Peripheral neuropathy Pressure ulcer of right foot, stage 2 ([facility]) S/P foot surgery, right 12/09/2019 11/20/2019Right foot reconstruction surgery with external fixation 12/02/2019 Right foot I and D Sleep apnea, obstructive does not use CPAP Tibia/fibula fracture Past Surgical History: Procedure Laterality Date APPENDECTOMY ARTHRODESIS SUBTALAR Right 05/01/2020 Procedure: RIGHT ANKLE ARTHRODESIS, SUBTALAR ARTHRODESIS RIGHT ANKLE, Bone [place] Graft From Right Fibula, Application of Splint; Surgeon: Alena Mora DPM; Location: [facility]; Service: Podiatry ARTHROPLASTY TOE Right 01/25/2019 Procedure: ARTHROPLASTY 2ND TOE RIGHT FOOT; Surgeon: Rosa M Robles DPM; Location: [facility] [place] [facility]; Service: Podiatry CABG 2017 CARDIAC SURGERY 2017 CABG tripe bypass CLOSED REDUCTION PERCUTANEOUS PINNING LOWER EXTREMITY N/A 12/02/2019 Procedure: ADJUSTMENT of EXTERNAL FIXATOR; Surgeon: Alena Mora DPM; Location: [facility]; Service: Podiatry CT COLONOSCOPY 02/24/[address] COLONOSCOPY 03/21/2023 CT COLONOSCOPY CYST REMOVED FROM CHEST N/A INCISION AND DRAINAGE FOOT AND ANKLE Right 12/02/2019 Procedure: RIGHT FOOT I&D; Surgeon: Alena Mora DPM; Location: [facility]; Service: Podiatry LIPOSUCTION METAL IN LEFT LEFT WRIST AND LEFT 5TH TOE Left ORIF FOOT FRACTURE Left 07/03/2013 5th metatarsal ORTHOPEDIC SURGERY WI AMPUTATION TOE INTERPHALANGEAL JOINT Left 06/29/2024 Procedure: left partial 2nd toe amputation; Surgeon: Alena Mora DPM; Location: [facility]; Service: Podiatry RECONSTRUCTION FOOT CHARCOT Right 11/20/2019 Procedure: RIGHT FOOT RECONSTRUCTION WITH APPLICATION OF CIRCULAR STATIC EXTERNAL FIXATION; Surgeon: Alena Mora DPM; Location: [facility]; Service: Podiatry RT FOOT SURGERY Right SHARMILA JEONG N/A Physical Examination: BP 126/73 (BP Location: Right arm, Patient Position: Sitting, BP Cuff Size: X-large Adult) Pulse 92 Temp 98.1 degrees F (36.7 degrees C) (Oral) General Appearance: Alert, cooperative, no distress, appears stated age. Podiatric Exam Vascular: DP and PT pulses are palpable. Capillary refill time is less than 3 secs to distal digits. Skin temperature is warm to cool from proximal tibial tuberosity to distal digit. + 2 pitting edema noted to bilateral lower extremities, improved Neurological: Gross sensation is intact. Protective sensation is absent using the [place] Asif monofilament. Dermatologic: Patient's left great toe wound has epithelialized. Full-thickness ulcer noted to the lateral left fifth toe, improved in size. Blister to the dorsal left third toe has resolved. Superficial skin ulcer noted to the anterior lateral left leg from previous blister site. Musculoskeletal: Patient is able to wiggle digits. Ankle joint range of motion is intact. Compartments soft and compressible. No calf pain Diagnoses: 1. Pressure ulcer of toe of left foot, stage 2 (HCC) 2. Skin ulcer of left lower leg with fat layer exposed (HCC) 3. Diabetic peripheral neuropathy (HCC) Assessment/Plan: Patient was seen and evaluated. Discussed all clinical findings Patient has a superficial skin ulcer to the lateral left leg from prior blister. No need for excisional debridement. Applied Betadine soaked Xeroform, 4 x 4, Kerlix and Zechariah bandage. Patient's full-thickness ul (more content not included)... [facility] 04-23-2025 History of Present illness Narrative Images from the original note were not included. Established Patient Visit Alena Mora DPM Patient Name: Dyllan Huertas. . Date of : 1960, 64 y.o.. Gender: male. Subjective: Patient is a pleasant 64-year-old male who presents to clinic for follow-up evaluation of left great toe and left fifth toe pressure ulceration. Patient is also following up for his left third toe blister and proximal left leg blister. He has been applying Betadine wet-to-dry as instructed. No other pedal complaints at this time. Patient denies any trauma or injury. Denies fevers, chills, nausea, vomiting, chest pain, shortness of breath, or any other constitutional symptoms. Past Medical History: Diagnosis Date Acquired equinus deformity of right foot Acquired hammer toe of right foot Angina pectoris with documented spasm Calluse Cellulitis of left toe Charcot's joint, right ankle and foot Chronic osteomyelitis with draining sinus, right ankle and foot ([facility]) Complication of external fixation device with internal components Coronary artery disease Dehiscence of incision Diabetes mellitus, type 2 ([facility]) Dystrophic nail Edema Effusion of ankle and foot joint Fracture of metatarsal, closed Fungal toenail infection Hyperlipidemia Hypertension Hypothyroidism 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 ([facility]) Non-pressure chronic ulcer of other part of left foot limited to breakdown of skin ([facility]) Non-pressure chronic ulcer of other part of right foot with fat layer exposed ([facility]) limited to breakdown of skin Obesity Overflow incontinence Peripheral neuropathy Pressure ulcer of right foot, stage 2 ([facility]) S/P foot surgery, right 12/09/2019 11/20/2019Right foot reconstruction surgery with external fixation 12/02/2019 Right foot I and D Sleep apnea, obstructive does not use CPAP Tibia/fibula fracture Past Surgical History: Procedure Laterality Date APPENDECTOMY ARTHRODESIS SUBTALAR Right 05/01/2020 Procedure: RIGHT ANKLE ARTHRODESIS, SUBTALAR ARTHRODESIS RIGHT ANKLE, Bone [place] Graft From Right Fibula, Application of Splint; Surgeon: Alena Mora DPM; Location: [facility]; Service: Podiatry ARTHROPLASTY TOE Right 01/25/2019 Procedure: ARTHROPLASTY 2ND TOE RIGHT FOOT; Surgeon: Rosa M Robles DPM; [facility] [facility]; Service: Podiatry CABG 2017 CARDIAC SURGERY 2017 CABG tripe bypass CLOSED REDUCTION PERCUTANEOUS PINNING LOWER EXTREMITY N/A 12/02/2019 Procedure: ADJUSTMENT of EXTERNAL FIXATOR; Surgeon: Alena Mora DPM; Location: [facility]; Service: Podiatry CT COLONOSCOPY 02/24/[address] COLONOSCOPY 03/21/2023 CT COLONOSCOPY CYST REMOVED FROM CHEST N/A INCISION AND DRAINAGE FOOT AND ANKLE Right 12/02/2019 Procedure: RIGHT FOOT I&D; Surgeon: Alena Mora DPM; Location: [facility]; Service: Podiatry LIPOSUCTION METAL IN LEFT LEFT WRIST AND LEFT 5TH TOE Left ORIF FOOT FRACTURE Left 07/03/2013 5th metatarsal ORTHOPEDIC SURGERY WI AMPUTATION TOE INTERPHALANGEAL JOINT Left 06/29/2024 Procedure: left partial 2nd toe amputation; Surgeon: Alena Mora DPM; Location: [facility]; Service: Podiatry RECONSTRUCTION FOOT CHARCOT Right 11/20/2019 Procedure: RIGHT FOOT RECONSTRUCTION WITH APPLICATION OF CIRCULAR STATIC EXTERNAL FIXATION; Surgeon: Alena Mora DPM; Location: [facility]; Service: Podiatry RT FOOT SURGERY Right TUMMY TUCK N/A Physical Examination: BP 126/73 (BP Location: Right arm, Patient Position: Sitting, BP Cuff Size: X-large Adult) Pulse 92 Temp 98.1 F (36.7 C) (Oral) General Appearance: Alert, cooperative, no distress, appears stated age. Podiatric Exam Vascular: DP and PT pulses are palpable. Capillary refill time is less than 3 secs to distal digits. Skin temperature is warm to cool from proximal tibial tuberosity to distal digit. + 2 pitting edema noted to bilateral lower extremities, improved Neurological: Gross sensation is intact. Protective sensation is absent using the [place] Asif monofilament. Dermatologic: Patient's left great toe wound has epithelialized. Full-thickness ulcer noted to the lateral left fifth toe, improved in size. Blister to the dorsal left third toe has resolved. Superficial skin ulcer noted to the anterior lateral left leg from previous blister site. Musculoskeletal: Patient is able to wiggle digits. Ankle joint range of motion is intact. Compartments soft and compressible. No calf pain Diagnoses: 1. Pressure ulcer of toe of left foot, stage 2 (HCC) 2. Skin ulcer of left lower leg with fat layer exposed (HCC) 3. Diabetic peripheral neuropathy (HCC) Assessment/Plan: Patient was seen and evaluated. Discussed all clinical findings Patient has a superficial skin ulcer to the lateral left leg from prior blister. No need for excisional debridement. Applied Betadine soaked Xeroform, 4 x 4, Kerlix and Zechariah bandage. Patient's full-thickness ulcer to the distal tuft of the left great toe has epithelialized. No need for excisional debridement. Nevertheless, patient continues to have an open wound to the lateral left fifth toe that requires excisional debridement to remove nonviable soft tissue and biofilm. This was performed using #15 blade down to and including subcutaneous tissue. Following debridement, applied Betadine wet-to-dry to the left great toe. Patient is instructed to change dressing daily to the left fifth toe. Postdebridement wound measured 1.0 x 0.5 x 0.2 cm. Patient is to change dressing daily. All questions were answered to patient satisfaction. Patient understands to call with any questions or concerns. Follow-up in 1 week for reevaluation. This note was partially created using voice recognition software and is inherently subject to errors including those of syntax and sound-alike substitutions which may escape proofreading. In such instances, original meaning may be extrapolated by contextual derivation. Alena Mora DPM, MS Podiatric Physician & Surgeon documented in this encounter [facility] 04-16-2025 Note Established Patient Visit Alena Mora DPM Patient Name: Dyllan Huertas. . Date of : 1960, 64 y.o.. Gender: male. Subjective: Patient is a pleasant 64-year-old male who presents to clinic for follow-up evaluation of left great toe and left fifth toe pressure ulceration. Patient that he developed a new blister to the left leg that he woke up on Wednesday. There is also another blister to the left third toe. No other pedal complaints at this time. Patient denies any trauma or injury. Denies fevers, chills, nausea, vomiting, chest pain, shortness of breath, or any other constitutional symptoms. Past Medical History: Diagnosis Date Acquired equinus deformity of right foot Acquired hammer toe of right foot Angina pectoris with documented spasm Calluse Cellulitis of left toe Charcot's joint, right ankle and foot Chronic osteomyelitis with draining sinus, right ankle and foot ([facility]) Complication of external fixation device with internal components Coronary artery disease Dehiscence of incision Diabetes mellitus, type 2 ([facility]) Dystrophic nail Edema Effusion of ankle and foot joint Fracture of metatarsal, closed Fungal toenail infection Hyperlipidemia Hypertension Hypothyroidism 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 ([facility]) Non-pressure chronic ulcer of other part of left foot limited to breakdown of skin ([facility]) Non-pressure chronic ulcer of other part of right foot with fat layer exposed ([facility]) limited to breakdown of skin Obesity Overflow incontinence Peripheral neuropathy Pressure ulcer of right foot, stage 2 ([facility]) S/P foot surgery, right 12/09/2019 11/20/2019Right foot reconstruction surgery with external fixation 12/02/2019 Right foot I and D Sleep apnea, obstructive does not use CPAP Tibia/fibula fracture Past Surgical History: Procedure Laterality Date APPENDECTOMY ARTHRODESIS SUBTALAR Right 05/01/2020 Procedure: RIGHT ANKLE ARTHRODESIS, SUBTALAR ARTHRODESIS RIGHT ANKLE, Bone [place] Graft From Right Fibula, Application of Splint; Surgeon: Alena Mora DPM; [facility]: [facility]; Service: Podiatry ARTHROPLASTY TOE Right 01/25/2019 Procedure: ARTHROPLASTY 2ND TOE RIGHT FOOT; Surgeon: Rosa M Robles DPM; [facility] [facility]; Service: Podiatry CABG 2017 CARDIAC SURGERY 2017 CABG tripe bypass CLOSED REDUCTION PERCUTANEOUS PINNING LOWER EXTREMITY N/A 12/02/2019 Procedure: ADJUSTMENT of EXTERNAL FIXATOR; Surgeon: Alena Mora DPM; Location: [facility]; Service: Podiatry CT COLONOSCOPY 02/24/[address] COLONOSCOPY 03/21/2023 CT COLONOSCOPY CYST REMOVED FROM CHEST N/A INCISION AND DRAINAGE FOOT AND ANKLE Right 12/02/2019 Procedure: RIGHT FOOT I&D; Surgeon: Alena Mora DPM; Location: [facility]; Service: Podiatry LIPOSUCTION METAL IN LEFT LEFT WRIST AND LEFT 5TH TOE Left ORIF FOOT FRACTURE Left 07/03/2013 5th metatarsal ORTHOPEDIC SURGERY WI AMPUTATION TOE INTERPHALANGEAL JOINT Left 06/29/2024 Procedure: left partial 2nd toe amputation; Surgeon: Alena Mora DPM; Location: [facility]; Service: Podiatry RECONSTRUCTION FOOT CHARCOT Right 11/20/2019 Procedure: RIGHT FOOT RECONSTRUCTION WITH APPLICATION OF CIRCULAR STATIC EXTERNAL FIXATION; Surgeon: Alena Mora DPM; [facility]: [facility]; Service: Podiatry RT FOOT SURGERY Right SHARMILA JEONG N/A Physical Examination: BP 134/78 (BP Location: Right arm, Patient Position: Sitting, BP Cuff Size: X-large Adult) Pulse 60 Temp 97.6 degrees F (36.4 degrees C) (Oral) General Appearance: Alert, cooperative, no distress, appears stated age. Podiatric Exam Vascular: DP and PT pulses are palpable. Capillary refill time is less than 3 secs to distal digits. Skin temperature is warm to cool from proximal tibial tuberosity to distal digit. + 2 pitting edema noted to bilateral lower extremities, improved Neurological: Gross sensation is intact. Protective sensation is absent using the [place] Asif monofilament. Dermatologic: New serous blister noted to the anterior lateral proximal left leg. There is a full-thickness ulceration noted at the distal tuft of the left great toe, almost healed and the lateral aspect of the left fifth toe, unchanged. Wounds do not probe to bone. No cellulitis or lymphangitis. No surrounding erythema, edema or any acute signs infection. Serosanguineous blister noted to the dorsal left third toe. Musculoskeletal: Patient is able to wiggle digits. Ankle joint range of motion is intact. Compartments soft and compressible. No calf pain Diagnoses: 1. Blister of third toe 2. Blister of left lower extremity, initial encounter 3. Pressure ulcer of toe of left foot, stage 2 (HCC) 4. Skin ulcer of small toe of left foot, with fat layer exposed (HCC) 5. Diabetic peripheral neuropathy (HCC) Assessment/Plan: Patient was seen and evaluated. Discussed all clinical fin (more content not included)... [facility] 04-16-2025 History of Present illness Narrative Images from the original note were not included. Established Patient Visit Alena Mora DPM Patient Name: Dyllan Huertas. . Date of : 1960, 64 y.o.. Gender: male. Subjective: Patient is a pleasant 64-year-old male who presents to clinic for follow-up evaluation of left great toe and left fifth toe pressure ulceration. Patient that he developed a new blister to the left leg that he woke up on Wednesday. There is also another blister to the left third toe. No other pedal complaints at this time. Patient denies any trauma or injury. Denies fevers, chills, nausea, vomiting, chest pain, shortness of breath, or any other constitutional symptoms. Past Medical History: Diagnosis Date Acquired equinus deformity of right foot Acquired hammer toe of right foot Angina pectoris with documented spasm Calluse Cellulitis of left toe Charcot's joint, right ankle and foot Chronic osteomyelitis with draining sinus, right ankle and foot ([facility]) Complication of external fixation device with internal components Coronary artery disease Dehiscence of incision Diabetes mellitus, type 2 ([facility]) Dystrophic nail Edema Effusion of ankle and foot joint Fracture of metatarsal, closed Fungal toenail infection Hyperlipidemia Hypertension Hypothyroidism 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 ([facility]) Non-pressure chronic ulcer of other part of left foot limited to breakdown of skin ([facility]) Non-pressure chronic ulcer of other part of right foot with fat layer exposed ([facility]) limited to breakdown of skin Obesity Overflow incontinence Peripheral neuropathy Pressure ulcer of right foot, stage 2 ([facility]) S/P foot surgery, right 12/09/2019 11/20/2019Right foot reconstruction surgery with external fixation 12/02/2019 Right foot I and D Sleep apnea, obstructive does not use CPAP Tibia/fibula fracture Past Surgical History: Procedure Laterality Date APPENDECTOMY ARTHRODESIS SUBTALAR Right 05/01/2020 Procedure: RIGHT ANKLE ARTHRODESIS, SUBTALAR ARTHRODESIS RIGHT ANKLE, Bone [place] Graft From Right Fibula, Application of Splint; Surgeon: Alena Mora DPM; [facility]: [facility]; Service: Podiatry ARTHROPLASTY TOE Right 01/25/2019 Procedure: ARTHROPLASTY 2ND TOE RIGHT FOOT; Surgeon: Rosa M Robles DPM; [facility]; Service: Podiatry CABG 2017 CARDIAC SURGERY 2017 CABG tripe bypass CLOSED REDUCTION PERCUTANEOUS PINNING LOWER EXTREMITY N/A 12/02/2019 Procedure: ADJUSTMENT of EXTERNAL FIXATOR; Surgeon: Alena Mora DPM; Location: [facility]; Service: Podiatry CT COLONOSCOPY 02/24/[address] COLONOSCOPY 03/21/2023 CT COLONOSCOPY CYST REMOVED FROM CHEST N/A INCISION AND DRAINAGE FOOT AND ANKLE Right 12/02/2019 Procedure: RIGHT FOOT I&D; Surgeon: Alena Mora DPM; Location: [facility]; Service: Podiatry LIPOSUCTION METAL IN LEFT LEFT WRIST AND LEFT 5TH TOE Left ORIF FOOT FRACTURE Left 07/03/2013 5th metatarsal ORTHOPEDIC SURGERY WI AMPUTATION TOE INTERPHALANGEAL JOINT Left 06/29/2024 Procedure: left partial 2nd toe amputation; Surgeon: Alena Mora DPM; [facility]: [facility]; Service: Podiatry RECONSTRUCTION FOOT CHARCOT Right 11/20/2019 Procedure: RIGHT FOOT RECONSTRUCTION WITH APPLICATION OF CIRCULAR STATIC EXTERNAL FIXATION; Surgeon: Alena Mora DPM; [facility]: [facility]; Service: Podiatry RT FOOT SURGERY Right TUMMY JOSECK N/A Physical Examination: BP 134/78 (BP Location: Right arm, Patient Position: Sitting, BP Cuff Size: X-large Adult) Pulse 60 Temp 97.6 F (36.4 C) (Oral) General Appearance: Alert, cooperative, no distress, appears stated age. Podiatric Exam Vascular: DP and PT pulses are palpable. Capillary refill time is less than 3 secs to distal digits. Skin temperature is warm to cool from proximal tibial tuberosity to distal digit. + 2 pitting edema noted to bilateral lower extremities, improved Neurological: Gross sensation is intact. Protective sensation is absent using the [place] Asif monofilament. Dermatologic: New serous blister noted to the anterior lateral proximal left leg. There is a full-thickness ulceration noted at the distal tuft of the left great toe, almost healed and the lateral aspect of the left fifth toe, unchanged. Wounds do not probe to bone. No cellulitis or lymphangitis. No surrounding erythema, edema or any acute signs infection. Serosanguineous blister noted to the dorsal left third toe. Musculoskeletal: Patient is able to wiggle digits. Ankle joint range of motion is intact. Compartments soft and compressible. No calf pain Diagnoses: 1. Blister of third toe 2. Blister of left lower extremity, initial encounter 3. Pressure ulcer of toe of left foot, stage 2 (HCC) 4. Skin ulcer of small toe of left foot, with fat layer exposed (HCC) 5. Diabetic peripheral neuropathy (HCC) Assessment/Plan: Patient was seen and evaluated. Discussed all clinical findings Patient has 2 new blisters to the left lower extremity. The first blister is at the anterior proximal lateral left leg, deroofed. The second blister is at the dorsal left third toe, remained intact. No surrounding erythema, edema or any acute signs of infection. Applied Adaptic, Betadine wet-to-dry, 4 x 4, Kerlix. Moreover, patient has a full-thickness ulcer noted at the distal tuft of the left great toe. This requires excisional debridement to remove nonviable tissue and biofilm. This was performed using #15 blade down to and including subcutaneous tissue. Following debridement, applied Betadine wet-to-dry to the left great toe. Patient is instructed to change dressing daily to the left great toe. Postdebridement wound measured 0. 2 x 0.2 x 0.1 cm. Additionally, patient has a full-thickness ulcer noted to the distal lateral aspect of the left fifth toe that requires excisional debridement remove nonviable soft tissue and biofilm. This was performed using a #15 blade down to and including subcutaneous tissue. Following debridement, applied Betadine wet-to-dry, 4 x 4, Kerlix. Postdebridement wound measured 1.0 x 0.5 x 0.2 cm. Patient is to change dressing daily. All questions were answered to patient satisfaction. Patient understands to call with any questions or concerns. Follow-up in 1 week for reevaluation. This note was partially created using voice recognition software and is inherently subject to errors including those of syntax and sound-alike substitutions which may escape proofreading. In such instances, original meaning may be extrapolated by contextual derivation. Alena Mora DPM, MS Podiatric Physician & Surgeon documented in this encounter [facility] 04-10-2025 Note Established Patient Visit Alena Mora DPM Patient Name: Dyllan Huertas. . Date of : 1960, 64 y.o.. Gender: male. Subjective: Patient is a pleasant 64-year-old male who presents to clinic for follow-up evaluation of left great toe and left fifth toe pressure ulceration. Patient stated he has been applying Kb to these open wounds once every other day as instructed. He has also been keeping his legs clean and dry with compression dressing. No other pedal complaints at this time. Patient denies any trauma or injury. Denies fevers, chills, nausea, vomiting, chest pain, shortness of breath, or any other constitutional symptoms. Past Medical History: Diagnosis Date Acquired equinus deformity of right foot Acquired hammer toe of right foot Angina pectoris with documented spasm Calluse Cellulitis of left toe Charcot's joint, right ankle and foot Chronic osteomyelitis with draining sinus, right ankle and foot ([facility]) Complication of external fixation device with internal components Coronary artery disease Dehiscence of incision Diabetes mellitus, type 2 ([facility]) Dystrophic nail Edema Effusion of ankle and foot joint Fracture of metatarsal, closed Fungal toenail infection Hyperlipidemia Hypertension Hypothyroidism 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 ([facility]) Non-pressure chronic ulcer of other part of left foot limited to breakdown of skin ([facility]) Non-pressure chronic ulcer of other part of right foot with fat layer exposed ([facility]) limited to breakdown of skin Obesity Overflow incontinence Peripheral neuropathy Pressure ulcer of right foot, stage 2 ([facility]) S/P foot surgery, right 12/09/2019 11/20/2019Right foot reconstruction surgery with external fixation 12/02/2019 Right foot I and D Sleep apnea, obstructive does not use CPAP Tibia/fibula fracture Past Surgical History: Procedure Laterality Date APPENDECTOMY ARTHRODESIS SUBTALAR Right 05/01/2020 Procedure: RIGHT ANKLE ARTHRODESIS, SUBTALAR ARTHRODESIS RIGHT ANKLE, Bone [place] Graft From Right Fibula, Application of Splint; Surgeon: Alena Mora DPM; Location: [facility]; Service: Podiatry ARTHROPLASTY TOE Right 01/25/2019 Procedure: ARTHROPLASTY 2ND TOE RIGHT FOOT; Surgeon: Rosa M Robles DPM; Location: [facility] [place]; Service: Podiatry CABG 2017 CARDIAC SURGERY 2017 CABG tripe bypass CLOSED REDUCTION PERCUTANEOUS PINNING LOWER EXTREMITY N/A 12/02/2019 Procedure: ADJUSTMENT of EXTERNAL FIXATOR; Surgeon: Alena Mora DPM; Location: [facility]; Service: Podiatry CT COLONOSCOPY 02/24/[address] COLONOSCOPY 03/21/2023 CT COLONOSCOPY CYST REMOVED FROM CHEST N/A INCISION AND DRAINAGE FOOT AND ANKLE Right 12/02/2019 Procedure: RIGHT FOOT I&D; Surgeon: Aelna Mora DPM; Location: [facility]; Service: Podiatry LIPOSUCTION METAL IN LEFT LEFT WRIST AND LEFT 5TH TOE Left ORIF FOOT FRACTURE Left 07/03/2013 5th metatarsal ORTHOPEDIC SURGERY WI AMPUTATION TOE INTERPHALANGEAL JOINT Left 06/29/2024 Procedure: left partial 2nd toe amputation; Surgeon: Alena Mora DPM; Location: [facility]; Service: Podiatry RECONSTRUCTION FOOT CHARCOT Right 11/20/2019 Procedure: RIGHT FOOT RECONSTRUCTION WITH APPLICATION OF CIRCULAR STATIC EXTERNAL FIXATION; Surgeon: Alena Mora DPM; Location: [facility]; Service: Podiatry RT FOOT SURGERY Right TUMMY TUCK N/A Physical Examination: BP (!) 151/78 (BP Location: Right arm, Patient Position: Sitting, BP Cuff Size: X-large Adult) Pulse 71 Temp 98.2 degrees F (36.8 degrees C) (Oral) General Appearance: Alert, cooperative, no distress, appears stated age. Podiatric Exam Vascular: DP and PT pulses are palpable. Capillary refill time is less than 3 secs to distal digits. Skin temperature is warm to cool from proximal tibial tuberosity to distal digit. + 2 pitting edema noted to bilateral lower extremities, improved Neurological: Gross sensation is intact. Protective sensation is absent using the [place]if monofilament. Dermatologic: There is a full-thickness ulceration noted at the distal tuft of the left great toe and the lateral aspect of the left fifth toe, improved on the left great toe and unchanged on the left fifth toe. Wounds do not probe to bone. No cellulitis or lymphangitis. No surrounding erythema, edema or any acute signs infection. Musculoskeletal: Patient is able to wiggle digits. Ankle joint range of motion is intact. Compartments soft and compressible. No calf pain Diagnoses: 1. Pressure ulcer of toe of left foot, stage 2 (HCC) 2. Skin ulcer of small toe of left foot, with fat layer exposed (HCC) 3. Diabetic peripheral neuropathy (HCC) Assessment/Plan: Patient was seen and evaluated. Discussed all clinical findings Patient has a full-thickness ulcer noted at the distal tuft of the left great toe. This requires excisional debridement (more content not included)... [facility] 04-10-2025 History of Present illness Narrative Images from the original note were not included. Established Patient Visit Alena Mora DPM Patient Name: Dyllan Huertas. . Date of : 1960, 64 y.o.. Gender: male. Subjective: Patient is a pleasant 64-year-old male who presents to clinic for follow-up evaluation of left great toe and left fifth toe pressure ulceration. Patient stated he has been applying Kb to these open wounds once every other day as instructed. He has also been keeping his legs clean and dry with compression dressing. No other pedal complaints at this time. Patient denies any trauma or injury. Denies fevers, chills, nausea, vomiting, chest pain, shortness of breath, or any other constitutional symptoms. Past Medical History: Diagnosis Date Acquired equinus deformity of right foot Acquired hammer toe of right foot Angina pectoris with documented spasm Calluse Cellulitis of left toe Charcot's joint, right ankle and foot Chronic osteomyelitis with draining sinus, right ankle and foot (HCC) Complication of external fixation device with internal components Coronary artery disease Dehiscence of incision Diabetes mellitus, type 2 ([facility]) Dystrophic nail Edema Effusion of ankle and foot joint Fracture of metatarsal, closed Fungal toenail infection Hyperlipidemia Hypertension Hypothyroidism 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) Non-pressure chronic ulcer of other part of left foot limited to breakdown of skin (HCC) Non-pressure chronic ulcer of other part of right foot with fat layer exposed (HCC) limited to breakdown of skin Obesity Overflow incontinence Peripheral neuropathy Pressure ulcer of right foot, stage 2 ([facility]) S/P foot surgery, right 12/09/2019 11/20/2019Right foot reconstruction surgery with external fixation 12/02/2019 Right foot I and D Sleep apnea, obstructive does not use CPAP Tibia/fibula fracture Past Surgical History: Procedure Laterality Date APPENDECTOMY ARTHRODESIS SUBTALAR Right 05/01/2020 Procedure: RIGHT ANKLE ARTHRODESIS, SUBTALAR ARTHRODESIS RIGHT ANKLE, Bone [place] Graft From Right Fibula, Application of Splint; Surgeon: Alena Mora DPM; Location: [facility] OR; Service: Podiatry ARTHROPLASTY TOE Right 01/25/2019 Procedure: ARTHROPLASTY 2ND TOE RIGHT FOOT; Surgeon: Rosa M Robles DPM; Location: [facility] OR; Service: Podiatry CABG 2017 CARDIAC SURGERY 2017 CABG tripe bypass CLOSED REDUCTION PERCUTANEOUS PINNING LOWER EXTREMITY N/A 12/02/2019 Procedure: ADJUSTMENT of EXTERNAL FIXATOR; Surgeon: Alena Mora DPM; Location: [facility]; Service: Podiatry CT COLONOSCOPY 02/24/[address] COLONOSCOPY 03/21/2023 CT COLONOSCOPY CYST REMOVED FROM CHEST N/A INCISION AND DRAINAGE FOOT AND ANKLE Right 12/02/2019 Procedure: RIGHT FOOT I&D; Surgeon: Alena Mora DPM; Location: [facility]; Service: Podiatry LIPOSUCTION METAL IN LEFT LEFT WRIST AND LEFT 5TH TOE Left ORIF FOOT FRACTURE Left 07/03/2013 5th metatarsal ORTHOPEDIC SURGERY WI AMPUTATION TOE INTERPHALANGEAL JOINT Left 06/29/2024 Procedure: left partial 2nd toe amputation; Surgeon: Alena Mora DPM; Location: [facility]; Service: Podiatry RECONSTRUCTION FOOT CHARCOT Right 11/20/2019 Procedure: RIGHT FOOT RECONSTRUCTION WITH APPLICATION OF CIRCULAR STATIC EXTERNAL FIXATION; Surgeon: Alena Mora DPM; Location: [facility]; Service: Podiatry RT FOOT SURGERY Right TUMMY TUCK N/A Physical Examination: BP (!) 151/78 (BP Location: Right arm, Patient Position: Sitting, BP Cuff Size: X-large Adult) Pulse 71 Temp 98.2 F (36.8 C) (Oral) General Appearance: Alert, cooperative, no distress, appears stated age. Podiatric Exam Vascular: DP and PT pulses are palpable. Capillary refill time is less than 3 secs to distal digits. Skin temperature is warm to cool from proximal tibial tuberosity to distal digit. + 2 pitting edema noted to bilateral lower extremities, improved Neurological: Gross sensation is intact. Protective sensation is absent using the [place] Asif monofilament. Dermatologic: There is a full-thickness ulceration noted at the distal tuft of the left great toe and the lateral aspect of the left fifth toe, improved on the left great toe and unchanged on the left fifth toe. Wounds do not probe to bone. No cellulitis or lymphangitis. No surrounding erythema, edema or any acute signs infection. Musculoskeletal: Patient is able to wiggle digits. Ankle joint range of motion is intact. Compartments soft and compressible. No calf pain Diagnoses: 1. Pressure ulcer of toe of left foot, stage 2 (HCC) 2. Skin ulcer of small toe of left foot, with fat layer exposed (HCC) 3. Diabetic peripheral neuropathy ([facility]) Assessment/Plan: Patient was seen and evaluated. Discussed all clinical findings Patient has a full-thickness ulcer noted at the distal tuft of the left great toe. This requires excisional debridement to remove nonviable tissue and biofilm. This was performed using #15 blade down to and including subcutaneous tissue. Following debridement, applied Kb to the left great toe. Patient is instructed to change dressing daily to the left great toe. Postdebridement wound measured 0.4 x 0.3 x 0.2 cm. Moreover, patient has a full-thickness ulcer noted to the distal lateral aspect of the left fifth toe that requires excisional debridement remove nonviable soft tissue and biofilm. This was performed using a #15 blade down to and including subcutaneous tissue. Following debridement, applied Kb, 4 x 4, Kerlix. Postdebridement wound measured 1.5 x 0.5 x 0.2 cm. All questions were answered to patient satisfaction. Patient understands to call with any questions or concerns. Follow-up in 1 week for reevaluation. This note was partially created using voice recognition software and is inherently subject to errors including those of syntax and sound-alike substitutions which may escape proofreading. In such instances, original meaning may be extrapolated by contextual derivation. Alena Mora DPM, MS Podiatric Physician & Surgeon documented in this encounter [facility] 04-02-2025 Note Established Patient Visit Alena Mora DPM Patient Name: Dyllan Huertas. . Date of : 1960, 64 y.o.. Gender: male. Subjective: Patient is a pleasant 64-year-old male who presents to clinic for follow-up evaluation of left great toe and left fifth toe pressure ulceration and bilateral leg blisters. Moreover, patient has applied Betadine to the legs. Patient states that he has been changing dressing daily using Betadine wet-to-dry. No other pedal complaints at this time. Patient denies any trauma or injury. Denies fevers, chills, nausea, vomiting, chest pain, shortness of breath, or any other constitutional symptoms. Past Medical History: Diagnosis Date Acquired equinus deformity of right foot Acquired hammer toe of right foot Angina pectoris with documented spasm Calluse Cellulitis of left toe Charcot's joint, right ankle and foot Chronic osteomyelitis with draining sinus, right ankle and foot ([facility]) Complication of external fixation device with internal components Coronary artery disease Dehiscence of incision Diabetes mellitus, type 2 ([facility]) Dystrophic nail Edema Effusion of ankle and foot joint Fracture of metatarsal, closed Fungal toenail infection Hyperlipidemia Hypertension Hypothyroidism 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 ([facility]) Non-pressure chronic ulcer of other part of left foot limited to breakdown of skin ([facility]) Non-pressure chronic ulcer of other part of right foot with fat layer exposed ([facility]) limited to breakdown of skin Obesity Overflow incontinence Peripheral neuropathy Pressure ulcer of right foot, stage 2 ([facility]) S/P foot surgery, right 12/09/2019 11/20/2019Right foot reconstruction surgery with external fixation 12/02/2019 Right foot I and D Sleep apnea, obstructive does not use CPAP Tibia/fibula fracture Past Surgical History: Procedure Laterality Date APPENDECTOMY ARTHRODESIS SUBTALAR Right 05/01/2020 Procedure: RIGHT ANKLE ARTHRODESIS, SUBTALAR ARTHRODESIS RIGHT ANKLE, Bone [place] Graft From Right Fibula, Application of Splint; Surgeon: Alena Mora DPM; [facility]: [facility]; Service: Podiatry ARTHROPLASTY TOE Right 01/25/2019 Procedure: ARTHROPLASTY 2ND TOE RIGHT FOOT; Surgeon: Rosa M Robles DPM; Location[place] [facility]; Service: Podiatry CABG 2017 CARDIAC SURGERY 2017 CABG tripe bypass CLOSED REDUCTION PERCUTANEOUS PINNING LOWER EXTREMITY N/A 12/02/2019 Procedure: ADJUSTMENT of EXTERNAL FIXATOR; Surgeon: Alena Mora DPM; Location: [facility]; Service: Podiatry CT COLONOSCOPY 02/24/[address] COLONOSCOPY 03/21/2023 CT COLONOSCOPY CYST REMOVED FROM CHEST N/A INCISION AND DRAINAGE FOOT AND ANKLE Right 12/02/2019 Procedure: RIGHT FOOT I&D; Surgeon: Alena Mora DPM; Location: [facility]; Service: Podiatry LIPOSUCTION METAL IN LEFT LEFT WRIST AND LEFT 5TH TOE Left ORIF FOOT FRACTURE Left 07/03/2013 5th metatarsal ORTHOPEDIC SURGERY WI AMPUTATION TOE INTERPHALANGEAL JOINT Left 06/29/2024 Procedure: left partial 2nd toe amputation; Surgeon: Alena Mora DPM; Location: [facility]; Service: Podiatry RECONSTRUCTION FOOT CHARCOT Right 11/20/2019 Procedure: RIGHT FOOT RECONSTRUCTION WITH APPLICATION OF CIRCULAR STATIC EXTERNAL FIXATION; Surgeon: Alena Mora DPM; Location: [facility]; Service: Podiatry RT FOOT SURGERY Right SHARMILA JEONG N/A Physical Examination: BP 122/74 (BP Location: Left arm, Patient Position: Sitting, BP Cuff Size: Adult) Pulse 87 Temp 98 degrees F (36.7 degrees C) (Oral) General Appearance: Alert, cooperative, no distress, appears stated age. Podiatric Exam Vascular: DP and PT pulses are palpable. Capillary refill time is less than 3 secs to distal digits. Skin temperature is warm to cool from proximal tibial tuberosity to distal digit. + 2 pitting edema noted to bilateral lower extremities, improved Neurological: Gross sensation is intact. Protective sensation is absent using the [place] Asif monofilament. Dermatologic: There is a full-thickness ulceration noted at the distal tuft of the left great toe and the lateral aspect of the left fifth toe, improved. Posterior and anterior right lower extremity blister with serous drainage, resolved posterior left lower extremity blister, resolved. No surrounding erythema, edema or any acute signs infection. Musculoskeletal: Patient is able to wiggle digits. Ankle joint range of motion is intact. Compartments soft and compressible. No calf pain Diagnoses: 1. Skin ulcer of small toe of left foot, with fat layer exposed (HCC) 2. Pressure ulcer of toe of left foot, stage 2 (HCC) 3. Skin ulcer of right lower leg with fat layer exposed (HCC) 4. Skin ulcer of left lower leg with fat layer exposed (HCC) Assessment/Plan: Patient was seen and evaluated. Discussed all clinical findings Patient has improved edema to bilateral lower ex (more content not included)... [facility] 04-02-2025 History of Present illness Narrative Images from the original note were not included. Established Patient Visit Alena Mora DPM Patient Name: Dyllan Huertas. . Date of : 1960, 64 y.o.. Gender: male. Subjective: Patient is a pleasant 64-year-old male who presents to clinic for follow-up evaluation of left great toe and left fifth toe pressure ulceration and bilateral leg blisters. Moreover, patient has applied Betadine to the legs. Patient states that he has been changing dressing daily using Betadine wet-to-dry. No other pedal complaints at this time. Patient denies any trauma or injury. Denies fevers, chills, nausea, vomiting, chest pain, shortness of breath, or any other constitutional symptoms. Past Medical History: Diagnosis Date Acquired equinus deformity of right foot Acquired hammer toe of right foot Angina pectoris with documented spasm Calluse Cellulitis of left toe Charcot's joint, right ankle and foot Chronic osteomyelitis with draining sinus, right ankle and foot (HCC) Complication of external fixation device with internal components Coronary artery disease Dehiscence of incision Diabetes mellitus, type 2 ([facility]) Dystrophic nail Edema Effusion of ankle and foot joint Fracture of metatarsal, closed Fungal toenail infection Hyperlipidemia Hypertension Hypothyroidism 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 ([facility]) Non-pressure chronic ulcer of other part of left foot limited to breakdown of skin ([facility]) Non-pressure chronic ulcer of other part of right foot with fat layer exposed ([facility]) limited to breakdown of skin Obesity Overflow incontinence Peripheral neuropathy Pressure ulcer of right foot, stage 2 ([facility]) S/P foot surgery, right 12/09/2019 11/20/2019Right foot reconstruction surgery with external fixation 12/02/2019 Right foot I and D Sleep apnea, obstructive does not use CPAP Tibia/fibula fracture Past Surgical History: Procedure Laterality Date APPENDECTOMY ARTHRODESIS SUBTALAR Right 05/01/2020 Procedure: RIGHT ANKLE ARTHRODESIS, SUBTALAR ARTHRODESIS RIGHT ANKLE, Bone [place] Graft From Right Fibula, Application of Splint; Surgeon: Alena Mora DPM; Location: [facility] OR; Service: Podiatry ARTHROPLASTY TOE Right 01/25/2019 Procedure: ARTHROPLASTY 2ND TOE RIGHT FOOT; Surgeon: Rosa M Robles DPM; Location: [facility] [place]; Service: Podiatry CABG 2017 CARDIAC SURGERY 2017 CABG tripe bypass CLOSED REDUCTION PERCUTANEOUS PINNING LOWER EXTREMITY N/A 12/02/2019 Procedure: ADJUSTMENT of EXTERNAL FIXATOR; Surgeon: Alena Mora DPM; Location: [facility]; Service: Podiatry CT COLONOSCOPY 02/24/[address] COLONOSCOPY 03/21/2023 CT COLONOSCOPY CYST REMOVED FROM CHEST N/A INCISION AND DRAINAGE FOOT AND ANKLE Right 12/02/2019 Procedure: RIGHT FOOT I&D; Surgeon: Alena Mora DPM; Location: [facility]; Service: Podiatry LIPOSUCTION METAL IN LEFT LEFT WRIST AND LEFT 5TH TOE Left ORIF FOOT FRACTURE Left 07/03/2013 5th metatarsal ORTHOPEDIC SURGERY WI AMPUTATION TOE INTERPHALANGEAL JOINT Left 06/29/2024 Procedure: left partial 2nd toe amputation; Surgeon: Alena Mora DPM; [facility]: [facility]; Service: Podiatry RECONSTRUCTION FOOT CHARCOT Right 11/20/2019 Procedure: RIGHT FOOT RECONSTRUCTION WITH APPLICATION OF CIRCULAR STATIC EXTERNAL FIXATION; Surgeon: Alena Mora DPM; [facility]: [facility]; Service: Podiatry RT FOOT SURGERY Right TUMMY TUCK N/A Physical Examination: BP 122/74 (BP Location: Left arm, Patient Position: Sitting, BP Cuff Size: Adult) Pulse 87 Temp 98 F (36.7 C) (Oral) General Appearance: Alert, cooperative, no distress, appears stated age. Podiatric Exam Vascular: DP and PT pulses are palpable. Capillary refill time is less than 3 secs to distal digits. Skin temperature is warm to cool from proximal tibial tuberosity to distal digit. + 2 pitting edema noted to bilateral lower extremities, improved Neurological: Gross sensation is intact. Protective sensation is absent using the [place] Asif monofilament. Dermatologic: There is a full-thickness ulceration noted at the distal tuft of the left great toe and the lateral aspect of the left fifth toe, improved. Posterior and anterior right lower extremity blister with serous drainage, resolved posterior left lower extremity blister, resolved. No surrounding erythema, edema or any acute signs infection. Musculoskeletal: Patient is able to wiggle digits. Ankle joint range of motion is intact. Compartments soft and compressible. No calf pain Diagnoses: 1. Skin ulcer of small toe of left foot, with fat layer exposed (HCC) 2. Pressure ulcer of toe of left foot, stage 2 (HCC) 3. Skin ulcer of right lower leg with fat layer exposed (HCC) 4. Skin ulcer of left lower leg with fat layer exposed (HCC) Assessment/Plan: Patient was seen and evaluated. Discussed all clinical findings Patient has improved edema to bilateral lower extremities. Patient's bilateral lower extremity blisters have resolved leaving only a superficial wound. Applied Betadine wet-to-dry dressing. This was applied today in the office, followed by 4 x 4's, Kerlix and Zechariah bandage from toes to knee Patient has a full-thickness ulcer noted at the distal tuft of the left great toe. This requires excisional debridement to remove nonviable tissue and biofilm. This was performed using #15 blade down to and including subcutaneous tissue. Following debridement, applied Kb to the left great toe. Patient is instructed to change dressing daily to the left great toe. Postdebridement wound measured 0.5 x 0. 5 x 0.2 cm. Moreover, patient has a full-thickness ulcer noted to the distal lateral aspect of the left fifth toe that requires excisional debridement remove nonviable soft tissue and biofilm. This was performed using a #15 blade down to and including subcutaneous tissue. Following debridement, applied Betadine wet-to-dry, 4 x 4, Kerlix. Postdebridement wound measured 0.2 x 0. 4 x 0.2 cm. All questions were answered to patient satisfaction. Patient understands to call with any questions or concerns. Follow-up in 1 week for reevaluation. This note was partially created using voice recognition software and is inherently subject to errors including those of syntax and sound-alike substitutions which may escape proofreading. In such instances, original meaning may be extrapolated by contextual derivation. Alena Mora DPM, MS Podiatric Physician & Surgeon documented in this encounter [facility] 03-29-2025 Note Established Patient Visit Alena Mora DPM Patient Name: Dyllan Huertas. . Date of : 1960, 64 y.o.. Gender: male. Subjective: Patient is a pleasant 64-year-old male who presents to clinic for follow-up evaluation of left great toe and left fifth toe pressure ulceration, in addition to blistering to bilateral legs. Patient has applied Betadine to the legs and Kb to the wounds on the left great toe and left fifth toe. No other pedal complaints at this time. Patient denies any trauma or injury. Denies fevers, chills, nausea, vomiting, chest pain, shortness of breath, or any other constitutional symptoms. Past Medical History: Diagnosis Date Acquired equinus deformity of right foot Acquired hammer toe of right foot Angina pectoris with documented spasm Calluse Cellulitis of left toe Charcot's joint, right ankle and foot Chronic osteomyelitis with draining sinus, right ankle and foot ([facility]) Complication of external fixation device with internal components Coronary artery disease Dehiscence of incision Diabetes mellitus, type 2 ([facility]) Dystrophic nail Edema Effusion of ankle and foot joint Fracture of metatarsal, closed Fungal toenail infection Hyperlipidemia Hypertension Hypothyroidism 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 ([facility]) Non-pressure chronic ulcer of other part of left foot limited to breakdown of skin ([facility]) Non-pressure chronic ulcer of other part of right foot with fat layer exposed ([facility]) limited to breakdown of skin Obesity Overflow incontinence Peripheral neuropathy Pressure ulcer of right foot, stage 2 ([facility]) S/P foot surgery, right 12/09/2019 11/20/2019Right foot reconstruction surgery with external fixation 12/02/2019 Right foot I and D Sleep apnea, obstructive does not use CPAP Tibia/fibula fracture Past Surgical History: Procedure Laterality Date APPENDECTOMY ARTHRODESIS SUBTALAR Right 05/01/2020 Procedure: RIGHT ANKLE ARTHRODESIS, SUBTALAR ARTHRODESIS RIGHT ANKLE, Bone [place] Graft From Right Fibula, Application of Splint; Surgeon: Alena Mora DPM; [facility]; Service: Podiatry ARTHROPLASTY TOE Right 01/25/2019 Procedure: ARTHROPLASTY 2ND TOE RIGHT FOOT; Surgeon: Rosa M Robles DPM; Location: [facility] [place] [facility]; Service: Podiatry CABG 2017 CARDIAC SURGERY 2017 CABG tripe bypass CLOSED REDUCTION PERCUTANEOUS PINNING LOWER EXTREMITY N/A 12/02/2019 Procedure: ADJUSTMENT of EXTERNAL FIXATOR; Surgeon: Alena Mora DPM; Location: [facility]; Service: Podiatry CT COLONOSCOPY 02/24/[address] COLONOSCOPY 03/21/2023 CT COLONOSCOPY CYST REMOVED FROM CHEST N/A INCISION AND DRAINAGE FOOT AND ANKLE Right 12/02/2019 Procedure: RIGHT FOOT I&D; Surgeon: Alena Mroa DPM; Location: [facility]; Service: Podiatry LIPOSUCTION METAL IN LEFT LEFT WRIST AND LEFT 5TH TOE Left ORIF FOOT FRACTURE Left 07/03/2013 5th metatarsal ORTHOPEDIC SURGERY WI AMPUTATION TOE INTERPHALANGEAL JOINT Left 06/29/2024 Procedure: left partial 2nd toe amputation; Surgeon: Alena Mora DPM; [facility]: [facility]; Service: Podiatry RECONSTRUCTION FOOT CHARCOT Right 11/20/2019 Procedure: RIGHT FOOT RECONSTRUCTION WITH APPLICATION OF CIRCULAR STATIC EXTERNAL FIXATION; Surgeon: Alena Mora DPM; [facility]: [facility]; Service: Podiatry RT FOOT SURGERY Right TUMEMILY GARCIACK N/A Physical Examination: BP 124/70 (BP Location: Left arm, Patient Position: Sitting, BP Cuff Size: Adult) Pulse 81 Temp 97.5 degrees F (36.4 degrees C) (Oral) General Appearance: Alert, cooperative, no distress, appears stated age. Podiatric Exam Vascular: DP and PT pulses are palpable. Capillary refill time is less than 3 secs to distal digits. Skin temperature is warm to cool from proximal tibial tuberosity to distal digit. + 2 pitting edema noted to bilateral lower extremities, slightly improved Neurological: Gross sensation is intact. Protective sensation is absent using the [place] monofilament. Dermatologic: There is a full-thickness ulceration noted at the distal tuft of the left great toe and the lateral aspect of the left fifth toe, improved. Bilateral lower extremity partial-thickness wound from prior blister formation with scant serous drainage. No surrounding erythema, edema or any acute signs infection. Musculoskeletal: Patient is able to wiggle digits. Ankle joint range of motion is intact. Compartments soft and compressible. No calf pain Diagnoses: 1. Blister of right lower extremity, initial encounter 2. Blister of left lower extremity, initial encounter 3. Skin ulcer of small toe of left foot, with fat layer exposed (HCC) 4. Pressure ulcer of toe of left foot, stage 2 (HCC) Assessment/Plan: Patient was seen and evaluated. Discussed all clinical findings Patient's bilateral lower extremity edema have improved slightly since the last clini (more content not included)... [facility] 03-29-2025 History of Present illness Narrative Debridements documented in this encounter [facility] 03-29-2025 History of Present illness Narrative Images from the original note were not included. Established Patient Visit Alena Mora DPM Patient Name: Dyllan Huertas. . Date of : 1960, 64 y.o.. Gender: male. Subjective: Patient is a pleasant 64-year-old male who presents to clinic for follow-up evaluation of left great toe and left fifth toe pressure ulceration, in addition to blistering to bilateral legs. Patient has applied Betadine to the legs and Kb to the wounds on the left great toe and left fifth toe. No other pedal complaints at this time. Patient denies any trauma or injury. Denies fevers, chills, nausea, vomiting, chest pain, shortness of breath, or any other constitutional symptoms. Past Medical History: Diagnosis Date Acquired equinus deformity of right foot Acquired hammer toe of right foot Angina pectoris with documented spasm Calluse Cellulitis of left toe Charcot's joint, right ankle and foot Chronic osteomyelitis with draining sinus, right ankle and foot ([facility]) Complication of external fixation device with internal components Coronary artery disease Dehiscence of incision Diabetes mellitus, type 2 ([facility]) Dystrophic nail Edema Effusion of ankle and foot joint Fracture of metatarsal, closed Fungal toenail infection Hyperlipidemia Hypertension Hypothyroidism 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) Non-pressure chronic ulcer of other part of left foot limited to breakdown of skin (HCC) Non-pressure chronic ulcer of other part of right foot with fat layer exposed ([facility]) limited to breakdown of skin Obesity Overflow incontinence Peripheral neuropathy Pressure ulcer of right foot, stage 2 ([facility]) S/P foot surgery, right 12/09/2019 11/20/2019Right foot reconstruction surgery with external fixation 12/02/2019 Right foot I and D Sleep apnea, obstructive does not use CPAP Tibia/fibula fracture Past Surgical History: Procedure Laterality Date APPENDECTOMY ARTHRODESIS SUBTALAR Right 05/01/2020 Procedure: RIGHT ANKLE ARTHRODESIS, SUBTALAR ARTHRODESIS RIGHT ANKLE, Bone [place] Graft From Right Fibula, Application of Splint; Surgeon: Alena Mora DPM; [facility]; Service: Podiatry ARTHROPLASTY TOE Right 01/25/2019 Procedure: ARTHROPLASTY 2ND TOE RIGHT FOOT; Surgeon: Rosa M Robles DPM; [facility]; Service: Podiatry CABG 2017 CARDIAC SURGERY 2017 CABG tripe bypass CLOSED REDUCTION PERCUTANEOUS PINNING LOWER EXTREMITY N/A 12/02/2019 Procedure: ADJUSTMENT of EXTERNAL FIXATOR; Surgeon: Alena Mora DPM; Location: [facility]; Service: Podiatry CT COLONOSCOPY 02/24/[address] COLONOSCOPY 03/21/2023 CT COLONOSCOPY CYST REMOVED FROM CHEST N/A INCISION AND DRAINAGE FOOT AND ANKLE Right 12/02/2019 Procedure: RIGHT FOOT I&D; Surgeon: Alena Mora DPM; Location: [facility]; Service: Podiatry LIPOSUCTION METAL IN LEFT LEFT WRIST AND LEFT 5TH TOE Left ORIF FOOT FRACTURE Left 07/03/2013 5th metatarsal ORTHOPEDIC SURGERY WI AMPUTATION TOE INTERPHALANGEAL JOINT Left 06/29/2024 Procedure: left partial 2nd toe amputation; Surgeon: Alena Mora DPM; [facility]: [facility]; Service: Podiatry RECONSTRUCTION FOOT CHARCOT Right 11/20/2019 Procedure: RIGHT FOOT RECONSTRUCTION WITH APPLICATION OF CIRCULAR STATIC EXTERNAL FIXATION; Surgeon: Alena Mora DPM; [facility]: [facility]; Service: Podiatry RT FOOT SURGERY Right TUMMY TUCK N/A Physical Examination: BP 124/70 (BP Location: Left arm, Patient Position: Sitting, BP Cuff Size: Adult) Pulse 81 Temp 97.5 F (36.4 C) (Oral) General Appearance: Alert, cooperative, no distress, appears stated age. Podiatric Exam Vascular: DP and PT pulses are palpable. Capillary refill time is less than 3 secs to distal digits. Skin temperature is warm to cool from proximal tibial tuberosity to distal digit. + 2 pitting edema noted to bilateral lower extremities, slightly improved Neurological: Gross sensation is intact. Protective sensation is absent using the [place]if monofilament. Dermatologic: There is a full-thickness ulceration noted at the distal tuft of the left great toe and the lateral aspect of the left fifth toe, improved. Bilateral lower extremity partial-thickness wound from prior blister formation with scant serous drainage. No surrounding erythema, edema or any acute signs infection. Musculoskeletal: Patient is able to wiggle digits. Ankle joint range of motion is intact. Compartments soft and compressible. No calf pain Diagnoses: 1. Blister of right lower extremity, initial encounter 2. Blister of left lower extremity, initial encounter 3. Skin ulcer of small toe of left foot, with fat layer exposed (HCC) 4. Pressure ulcer of toe of left foot, stage 2 (HCC) Assessment/Plan: Patient was seen and evaluated. Discussed all clinical findings Patient's bilateral lower extremity edema have improved slightly since the last clinic visit. Blisters have resolved now with remaining partial-thickness wounds. Applied Adaptic to the partial-thickness wound followed by Betadine wet-to-dry and Unna lite compression dressing sequentially from toes to knee. Moreover, patient has a full-thickness ulcer noted at the distal tuft of the left great toe. This requires excisional debridement to remove nonviable tissue and biofilm. This was performed using #15 blade down to and including subcutaneous tissue. Following debridement, applied Kb to the left great toe. Patient is instructed to change dressing daily to the left great toe. Postdebridement wound measured 0. 5 x 0. 5 x 0.2 cm. Moreover, patient has a full-thickness ulcer noted to the distal lateral aspect of the left fifth toe that requires excisional debridement remove nonviable soft tissue and biofilm. This was performed using a #15 blade down to and including subcutaneous tissue and fascia. Following debridement, applied Kb, 4 x 4, Kerlix. Postdebridement wound measured 1.0 x 0. 4 x 0.3 cm. All questions were answered to patient satisfaction. Patient understands to call with any questions or concerns. Follow-up in 1 week for reevaluation. This note was partially created using voice recognition software and is inherently subject to errors including those of syntax and sound-alike substitutions which may escape proofreading. In such instances, original meaning may be extrapolated by contextual derivation. Alena Mora DPM, MS Podiatric Physician & Surgeon documented in this encounter [facility] 03-29-2025 Note Established Patient Visit Alena Mora DPM Patient Name: Dyllan Huertas. . Date of : 1960, 64 y.o.. Gender: male. Subjective: Patient is a pleasant 64-year-old male who presents to clinic for follow-up evaluation of left great toe and left fifth toe pressure ulceration. Unfortunate, patient's left fifth toe appears to have worsened with increased drainage. Patient stated he has been applying Kb to these open wounds once every other day as instructed. He has also been keeping his legs clean and dry with compression dressing. No other pedal complaints at this time. Patient denies any trauma or injury. Denies fevers, chills, nausea, vomiting, chest pain, shortness of breath, or any other constitutional symptoms. 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) Non-pressure chronic ulcer of other part of left foot limited to breakdown of skin (HCC) Non-pressure chronic ulcer of other part of right foot with fat layer exposed (HCC) limited to breakdown of skin Obesity Overflow incontinence Peripheral neuropathy Pressure ulcer of right foot, stage 2 (HCC) S/P foot surgery, right 12/09/2019 11/20/2019Right foot reconstruction surgery with external fixation 12/02/2019 Right foot I and D Sleep apnea, obstructive does not use CPAP Tibia/fibula fracture Past Surgical History: Procedure Laterality Date APPENDECTOMY ARTHRODESIS SUBTALAR Right 05/01/2020 Procedure: RIGHT ANKLE ARTHRODESIS, SUBTALAR ARTHRODESIS RIGHT ANKLE, Bone [place] Graft From Right Fibula, Application of Splint; Surgeon: Alena Mora DPM; [facility]: [facility]; Service: Podiatry ARTHROPLASTY TOE Right 01/25/2019 Procedure: ARTHROPLASTY 2ND TOE RIGHT FOOT; Surgeon: Rosa M Robles DPM; [facility]; Service: Podiatry CABG 2017 CARDIAC SURGERY 2017 CABG tripe bypass CLOSED REDUCTION PERCUTANEOUS PINNING LOWER EXTREMITY N/A 12/02/2019 Procedure: ADJUSTMENT of EXTERNAL FIXATOR; Surgeon: Alena Mora DPM; [facility]: [facility]; Service: Podiatry CT COLONOSCOPY 02/24/[address] COLONOSCOPY 03/21/2023 CT COLONOSCOPY CYST REMOVED FROM CHEST N/A INCISION AND DRAINAGE FOOT AND ANKLE Right 12/02/2019 Procedure: RIGHT FOOT I&D; Surgeon: Alena Mora DPM; [facility]: [facility]; Service: Podiatry LIPOSUCTION METAL IN LEFT LEFT WRIST AND LEFT 5TH TOE Left ORIF FOOT FRACTURE Left 07/03/2013 5th metatarsal ORTHOPEDIC SURGERY WI AMPUTATION TOE INTERPHALANGEAL JOINT Left 06/29/2024 Procedure: left partial 2nd toe amputation; Surgeon: Alena Mora DPM; [facility]; Service: Podiatry RECONSTRUCTION FOOT CHARCOT Right 11/20/2019 Procedure: RIGHT FOOT RECONSTRUCTION WITH APPLICATION OF CIRCULAR STATIC EXTERNAL FIXATION; Surgeon: Alena Mora DPM; [facility]: [facility]; Service: Podiatry RT FOOT SURGERY Right TUMMY TUCK N/A Physical Examination: BP 110/68 (BP Location: Right arm, Patient Position: Sitting, BP Cuff Size: X-large Adult) Pulse 82 Temp 98 degrees F (36.7 degrees C) (Oral) General Appearance: Alert, cooperative, no distress, appears stated age. Podiatric Exam Vascular: DP and PT pulses are palpable. Capillary refill time is less than 3 secs to distal digits. Skin temperature is warm to cool from proximal tibial tuberosity to distal digit. + 2 pitting edema noted to bilateral lower extremities, improvement in Neurological: Gross sensation is intact. Protective sensation is absent using the [place] Asif monofilament. Dermatologic: There is a full-thickness ulceration noted at the distal tuft of the left great toe and the lateral aspect of the left fifth toe, improved on the left great toe. However, patient's lateral left fifth toe wound has worsened in terms of size and depth. Wounds do not probe to bone. However, the left fifth toe wound probes down to capsule. No cellulitis or lymphangitis. No surrounding erythema, edema or any acute signs infection. Musculoskeletal: Patient is able to wiggle digits. Ankle joint range of motion is intact. Compartments soft and compressible. No calf pain Diagnoses: 1. Skin ulcer of small toe of left foot, with fat layer exposed (HCC) 2. Pressure ulcer of toe of left foot, stage 2 ([facility]) Assessment/Plan: Patient was seen and evaluat (more content not included)... [facility] 03-29-2025 History of Present illness Narrative Worsening 5th toe of left foot wound documented in this encounter [facility] 03-29-2025 History of Present illness Narrative Images from the original note were not included. Established Patient Visit Alena Mora DPM Patient Name: Dyllan Huertas. . Date of : 1960, 64 y.o.. Gender: male. Subjective: Patient is a pleasant 64-year-old male who presents to clinic for follow-up evaluation of left great toe and left fifth toe pressure ulceration. Unfortunate, patient's left fifth toe appears to have worsened with increased drainage. Patient stated he has been applying Kb to these open wounds once every other day as instructed. He has also been keeping his legs clean and dry with compression dressing. No other pedal complaints at this time. Patient denies any trauma or injury. Denies fevers, chills, nausea, vomiting, chest pain, shortness of breath, or any other constitutional symptoms. 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) Non-pressure chronic ulcer of other part of left foot limited to breakdown of skin (HCC) Non-pressure chronic ulcer of other part of right foot with fat layer exposed (HCC) limited to breakdown of skin Obesity Overflow incontinence Peripheral neuropathy Pressure ulcer of right foot, stage 2 (HCC) S/P foot surgery, right 12/09/2019 11/20/2019Right foot reconstruction surgery with external fixation 12/02/2019 Right foot I and D Sleep apnea, obstructive does not use CPAP Tibia/fibula fracture Past Surgical History: Procedure Laterality Date APPENDECTOMY ARTHRODESIS SUBTALAR Right 05/01/2020 Procedure: RIGHT ANKLE ARTHRODESIS, SUBTALAR ARTHRODESIS RIGHT ANKLE, Bone [place] Graft From Right Fibula, Application of Splint; Surgeon: Alena Mora DPM; [facility]; Service: Podiatry ARTHROPLASTY TOE Right 01/25/2019 Procedure: ARTHROPLASTY 2ND TOE RIGHT FOOT; Surgeon: Rosa M Robles DPM; [facility]; Service: Podiatry CABG 2017 CARDIAC SURGERY 2017 CABG tripe bypass CLOSED REDUCTION PERCUTANEOUS PINNING LOWER EXTREMITY N/A 12/02/2019 Procedure: ADJUSTMENT of EXTERNAL FIXATOR; Surgeon: Alena Mora DPM; [facility]; Service: Podiatry CT COLONOSCOPY 02/24/[address] COLONOSCOPY 03/21/2023 CT COLONOSCOPY CYST REMOVED FROM CHEST N/A INCISION AND DRAINAGE FOOT AND ANKLE Right 12/02/2019 Procedure: RIGHT FOOT I&D; Surgeon: Alena Mora DPM; [facility]; Service: Podiatry LIPOSUCTION METAL IN LEFT LEFT WRIST AND LEFT 5TH TOE Left ORIF FOOT FRACTURE Left 07/03/2013 5th metatarsal ORTHOPEDIC SURGERY WI AMPUTATION TOE INTERPHALANGEAL JOINT Left 06/29/2024 Procedure: left partial 2nd toe amputation; Surgeon: Alena Mora DPM; [facility]; Service: Podiatry RECONSTRUCTION FOOT CHARCOT Right 11/20/2019 Procedure: RIGHT FOOT RECONSTRUCTION WITH APPLICATION OF CIRCULAR STATIC EXTERNAL FIXATION; Surgeon: lAena Mora DPM; [facility]: [facility]; Service: Podiatry RT FOOT SURGERY Right [facility] N/A Physical Examination: BP 110/68 (BP Location: Right arm, Patient Position: Sitting, BP Cuff Size: X-large Adult) Pulse 82 Temp 98 F (36.7 C) (Oral) General Appearance: Alert, cooperative, no distress, appears stated age. Podiatric Exam Vascular: DP and PT pulses are palpable. Capillary refill time is less than 3 secs to distal digits. Skin temperature is warm to cool from proximal tibial tuberosity to distal digit. + 2 pitting edema noted to bilateral lower extremities, improvement in Neurological: Gross sensation is intact. Protective sensation is absent using the [place] Asif monofilament. Dermatologic: There is a full-thickness ulceration noted at the distal tuft of the left great toe and the lateral aspect of the left fifth toe, improved on the left great toe. However, patient's lateral left fifth toe wound has worsened in terms of size and depth. Wounds do not probe to bone. However, the left fifth toe wound probes down to capsule. No cellulitis or lymphangitis. No surrounding erythema, edema or any acute signs infection. Musculoskeletal: Patient is able to wiggle digits. Ankle joint range of motion is intact. Compartments soft and compressible. No calf pain Diagnoses: 1. Skin ulcer of small toe of left foot, with fat layer exposed (HCC) 2. Pressure ulcer of toe of left foot, stage 2 (HCC) Assessment/Plan: Patient was seen and evaluated. Discussed all clinical findings Patient has a full-thickness ulcer noted at the distal tuft of the left great toe. This requires excisional debridement to remove nonviable tissue and biofilm. This was performed using #15 blade down to and including subcutaneous tissue. Following debridement, applied Kb to the left great toe. Patient is instructed to change dressing daily to the left great toe. Postdebridement wound measured 0.8 x 0.5 x 0.2 cm. Moreover, patient has a full-thickness ulcer noted to the distal lateral aspect of the left fifth toe that has worsened since last clinic visit in terms of size and depth. Wound now probes down to capsule. Patient is at risk for bone infection. Discussed with patient that this wound requires excisional debridement remove nonviable soft tissue and biofilm. This was performed using a #15 blade down to and including subcutaneous tissue and fascia. Following debridement, applied Kb, 4 x 4, Kerlix. Postdebridement wound measured 1.5 x 0.5 x 0.3 cm. Following treatment, applied Kb and dry sterile dressing. Patient is instructed to change dressing once every other day. All questions were answered to patient satisfaction. Patient understands to call with any questions or concerns. Follow-up in 1 week for reevaluation. This note was partially created using voice recognition software and is inherently subject to errors including those of syntax and sound-alike substitutions which may escape proofreading. In such instances, original meaning may be extrapolated by contextual derivation. Alena Mora DPM, MS Podiatric Physician & Surgeon documented in this encounter [facility] 03-26-2025 History of Present illness Narrative Images from the original note were not included. Established Patient Visit Alena Mora DPM Patient Name: Dyllan Huertas. . Date of : 1960, 64 y.o.. Gender: male. Subjective: Patient is a pleasant 64-year-old male who presents to clinic for follow-up evaluation of left great toe and left fifth toe pressure ulceration. Patient also reports that he developed new blisters on the right and left leg. He is unsure how that happened. States that the blister broke resulting in loss of drainage. Moreover, patient has applied Betadine to the legs. Patient states that he has been changing dressing daily using Betadine wet-to-dry. No other pedal complaints at this time. Patient denies any trauma or injury. Denies fevers, chills, nausea, vomiting, chest pain, shortness of breath, or any other constitutional symptoms. 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) Non-pressure chronic ulcer of other part of left foot limited to breakdown of skin (HCC) Non-pressure chronic ulcer of other part of right foot with fat layer exposed (HCC) limited to breakdown of skin Obesity Overflow incontinence Peripheral neuropathy Pressure ulcer of right foot, stage 2 (HCC) S/P foot surgery, right 12/09/2019 11/20/2019Right foot reconstruction surgery with external fixation 12/02/2019 Right foot I and D Sleep apnea, obstructive does not use CPAP Tibia/fibula fracture Past Surgical History: Procedure Laterality Date APPENDECTOMY ARTHRODESIS SUBTALAR Right 05/01/2020 Procedure: RIGHT ANKLE ARTHRODESIS, SUBTALAR ARTHRODESIS RIGHT ANKLE, Bone [place] Graft From Right Fibula, Application of Splint; Surgeon: Alena Mora DPM; [facility]; Service: Podiatry ARTHROPLASTY TOE Right 01/25/2019 Procedure: ARTHROPLASTY 2ND TOE RIGHT FOOT; Surgeon: Rosa M Robles DPM; [facility]; Service: Podiatry CABG 2017 CARDIAC SURGERY 2017 CABG tripe bypass CLOSED REDUCTION PERCUTANEOUS PINNING LOWER EXTREMITY N/A 12/02/2019 Procedure: ADJUSTMENT of EXTERNAL FIXATOR; Surgeon: Alena Mora DPM; [facility]: [facility]; Service: Podiatry CT COLONOSCOPY 02/24/[address] COLONOSCOPY 03/21/2023 CT COLONOSCOPY CYST REMOVED FROM CHEST N/A INCISION AND DRAINAGE FOOT AND ANKLE Right 12/02/2019 Procedure: RIGHT FOOT I&D; Surgeon: Alena Mora DPM; [facility]; Service: Podiatry LIPOSUCTION METAL IN LEFT LEFT WRIST AND LEFT 5TH TOE Left ORIF FOOT FRACTURE Left 07/03/2013 5th metatarsal ORTHOPEDIC SURGERY WI AMPUTATION TOE INTERPHALANGEAL JOINT Left 06/29/2024 Procedure: left partial 2nd toe amputation; Surgeon: Alena Mora DPM; [facility]; Service: Podiatry RECONSTRUCTION FOOT CHARCOT Right 11/20/2019 Procedure: RIGHT FOOT RECONSTRUCTION WITH APPLICATION OF CIRCULAR STATIC EXTERNAL FIXATION; Surgeon: Alena Mora DPM; [facility]; Service: Podiatry RT FOOT SURGERY Right [facility] N/A Physical Examination: BP 132/71 (BP Location: Left arm, Patient Position: Sitting, BP Cuff Size: X-large Adult) Pulse 83 Temp 98.4 F (36.9 C) (Oral) General Appearance: Alert, cooperative, no distress, appears stated age. Podiatric Exam Vascular: DP and PT pulses are palpable. Capillary refill time is less than 3 secs to distal digits. Skin temperature is warm to cool from proximal tibial tuberosity to distal digit. + 2 pitting edema noted to bilateral lower extremities. Neurological: Gross sensation is intact. Protective sensation is absent using the [place] Asif monofilament. Dermatologic: There is a full-thickness ulceration noted at the distal tuft of the left great toe and the lateral aspect of the left fifth toe, improved. Posterior and anterior right lower extremity blister with serous drainage. Posterior left lower extremity blister. No surrounding erythema, edema or any acute signs infection. Musculoskeletal: Patient is able to wiggle digits. Ankle joint range of motion is intact. Compartments soft and compressible. No calf pain Diagnoses: No diagnosis found. Assessment/Plan: Patient was seen and evaluated. Discussed all clinical findings Patient has worsening edema to bilateral lower extremities. Resulting in blisters to the right and left legs. These blisters are large in size and require Betadine wet-to-dry dressing. This was applied today in the office, followed by 4 x 4's, Kerlix and Zechariah bandage from toes to knee Patient has a full-thickness ulcer noted at the distal tuft of the left great toe. This requires excisional debridement to remove nonviable tissue and biofilm. This was performed using #15 blade down to and including subcutaneous tissue. Following debridement, applied Kb to the left great toe. Patient is instructed to change dressing daily to the left great toe. Postdebridement wound measured 0. 5 x 0. 5 x 0.2 cm. Moreover, patient has a full-thickness ulcer noted to the distal lateral aspect of the left fifth toe that requires excisional debridement remove nonviable soft tissue and biofilm. This was performed using a #15 blade down to and including subcutaneous tissue. Following debridement, applied Betadine wet-to-dry, 4 x 4, Kerlix. Postdebridement wound measured 0.2 x 0. 4 x 0.2 cm. All questions were answered to patient satisfaction. Patient understands to call with any questions or concerns. Follow-up in 1 week for reevaluation. This note was partially created using voice recognition software and is inherently subject to errors including those of syntax and sound-alike substitutions which may escape proofreading. In such instances, original meaning may be extrapolated by contextual derivation. Alena Mora DPM, MS Podiatric Physician & Surgeon documented in this encounter [facility] 03-26-2025 Note Established Patient Visit Alena Mora DPM Patient Name: Dyllan Huertas. . Date of : 1960, 64 y.o.. Gender: male. Subjective: Patient is a pleasant 64-year-old male who presents to clinic for follow-up evaluation of left great toe and left fifth toe pressure ulceration. Patient also reports that he developed new blisters on the right and left leg. He is unsure how that happened. States that the blister broke resulting in loss of drainage. Moreover, patient has applied Betadine to the legs. Patient states that he has been changing dressing daily using Betadine wet-to-dry. No other pedal complaints at this time. Patient denies any trauma or injury. Denies fevers, chills, nausea, vomiting, chest pain, shortness of breath, or any other constitutional symptoms. Past Medical History: Diagnosis Date Acquired equinus deformity of right foot Acquired hammer toe of right foot Angina pectoris with documented spasm Calluse Cellulitis of left toe Charcot's joint, right ankle and foot Chronic osteomyelitis with draining sinus, right ankle and foot (HCC) Complication of external fixation device with internal components Coronary artery disease Dehiscence of incision Diabetes mellitus, type 2 ([facility]) Dystrophic nail Edema Effusion of ankle and foot joint Fracture of metatarsal, closed Fungal toenail infection Hyperlipidemia Hypertension Hypothyroidism 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) Non-pressure chronic ulcer of other part of left foot limited to breakdown of skin (HCC) Non-pressure chronic ulcer of other part of right foot with fat layer exposed (HCC) limited to breakdown of skin Obesity Overflow incontinence Peripheral neuropathy Pressure ulcer of right foot, stage 2 ([facility]) S/P foot surgery, right 12/09/2019 11/20/2019Right foot reconstruction surgery with external fixation 12/02/2019 Right foot I and D Sleep apnea, obstructive does not use CPAP Tibia/fibula fracture Past Surgical History: Procedure Laterality Date APPENDECTOMY ARTHRODESIS SUBTALAR Right 05/01/2020 Procedure: RIGHT ANKLE ARTHRODESIS, SUBTALAR ARTHRODESIS RIGHT ANKLE, Bone [place] Graft From Right Fibula, Application of Splint; Surgeon: Alena Mora DPM; [facility]; Service: Podiatry ARTHROPLASTY TOE Right 01/25/2019 Procedure: ARTHROPLASTY 2ND TOE RIGHT FOOT; Surgeon: Rosa M Robles DPM; Location: [facility] [place] [facility] [place]; Service: Podiatry CABG 2017 CARDIAC SURGERY 2017 CABG tripe bypass CLOSED REDUCTION PERCUTANEOUS PINNING LOWER EXTREMITY N/A 12/02/2019 Procedure: ADJUSTMENT of EXTERNAL FIXATOR; Surgeon: Alena Mora DPM; [facility]: [facility]; Service: Podiatry CT COLONOSCOPY 02/24/[address] COLONOSCOPY 03/21/2023 CT COLONOSCOPY CYST REMOVED FROM CHEST N/A INCISION AND DRAINAGE FOOT AND ANKLE Right 12/02/2019 Procedure: RIGHT FOOT I&D; Surgeon: Alena Mora DPM; [facility]: [facility]; Service: Podiatry LIPOSUCTION METAL IN LEFT LEFT WRIST AND LEFT 5TH TOE Left ORIF FOOT FRACTURE Left 07/03/2013 5th metatarsal ORTHOPEDIC SURGERY WI AMPUTATION TOE INTERPHALANGEAL JOINT Left 06/29/2024 Procedure: left partial 2nd toe amputation; Surgeon: Alena Mora DPM; [facility]; Service: Podiatry RECONSTRUCTION FOOT CHARCOT Right 11/20/2019 Procedure: RIGHT FOOT RECONSTRUCTION WITH APPLICATION OF CIRCULAR STATIC EXTERNAL FIXATION; Surgeon: Alena Mora DPM; [facility]; Service: Podiatry RT FOOT SURGERY Right TUMMY TUCK N/A Physical Examination: BP 132/71 (BP Location: Left arm, Patient Position: Sitting, BP Cuff Size: X-large Adult) Pulse 83 Temp 98.4 degrees F (36.9 degrees C) (Oral) General Appearance: Alert, cooperative, no distress, appears stated age. Podiatric Exam Vascular: DP and PT pulses are palpable. Capillary refill time is less than 3 secs to distal digits. Skin temperature is warm to cool from proximal tibial tuberosity to distal digit. + 2 pitting edema noted to bilateral lower extremities. Neurological: Gross sensation is intact. Protective sensation is absent using the [place] Asif monofilament. Dermatologic: There is a full-thickness ulceration noted at the distal tuft of the left great toe and the lateral aspect of the left fifth toe, improved. Posterior and anterior right lower extremity blister with serous drainage. Posterior left lower extremity blister. No surrounding erythema, edema or any acute signs infection. Musculoskeletal: Patient is able to wiggle digits. Ankle joint range of motion is intact. Compartments soft and compressible. No calf pain Diagnoses: No diagnosis found. Assessment/Plan: Patient was seen and evaluated. Discussed all clinical findings Patient has worsening edema to bilateral lower extremities. Resulting in blisters to the right and left legs. These blisters are large in size an (more content not included)... [facility] 03-19-2025 Instructions Alena Mora DPM - 03/19/2025 2:31 PM EDT Adaptic to the open wound areas, followed by Betadine wet-to-dry, 4 x 4's, Kerlix and Unna boot from toes to knee bilaterally Double layer Kb to the left great toe and left fifth toe open wounds Frequency: Patient is to change dressing only to the left great toe and left fifth toes Follow up: 1 week(s) documented in this encounter [facility] 03-19-2025 Progress note [facility] 03-19-2025 Progress note Note Date/Time March 19, 2025 9:34am [facility] [id number] [facility] [place] [address] OFFICE VISIT Date of Service: 03/19/25 MR#: [id number] Acct: [id number] Name: DYLLAN HUERTAS Rep #: [id number] : 1960 Provider: TEE Peng Age/Sex: 64/M Location: [facility] Status: Signed HPI HPI History of Present Illness Details: DYLLAN HUERTAS, is a 64 M who presents to the office today for a cardiovascular outpatient follow-up. He has a history of coronary artery disease status post bypass surgery in October 2016 with PETERS to diagonal branch and reverse SVG to ramus intermedius and posterior descending artery. He also has a history of ischemic cardiomyopathy, hypertension, hyperlipidemia, diabetesmellitus, and Charcot right foot with foot surgery in March 2017, November 2019, and May 2020. He denies chest, arm, jaw, or neck discomfort. He denies palpitations. He states bilateral lower extremity edema. He denies claudication. He denies shortness of breath with activity, shortness of breath at rest, orthopnea, or PND. He denies chronic cough. He denies significant, sudden weight gain. He states lightheadedness when standing too quickly. He denies dizziness, near-syncope, or syncope. He denies blood in urine, blood in stool, or epistaxis. He denies fever or chills. He denies myalgia. He states fatigue and difficultysleeping. His exercise level has remained stable. 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 Required: No Accompanied by: Self Is patient in pain?: No Allergies No Known Allergies Allergy (Verified 03/19/25 08:52) Medications ?Medication ?Instructions ?Recorded ?Confirmed ?Type gabapentin 300 mg capsule 300 mg PO QDAY 12/09/1703/04 History rosuvastatin 20 mg tablet 20 mg PO QDAY 12/09/1703/19 History tamsulosin 0.4 mg capsule 0.4 mg PO QDAY 12/09/1703/04 History chlorthalidone 25 mg tablet 12.5 mg PO DAILY 03/31/21 03/19/25 History fenofibrate 160 mg tablet 160 mg PO DAILY 12/25/21 History ferrous sulfate 325 mg (65 mg 325 mg PO DAILY 12/25/21 03/19/25 History iron) tablet aspirin 81 mg tablet,delayed 162 mg PO QDAY 06/26/22 0 03/19/25 History release (Adult Low Dose Aspirin) calcium carbonate (Calcium 600) 1,200 mg PO QPM 03/19/25 History cholecalciferol (vitamin D3) 25 25 mcg PO DAILY 03/19/25 History mcg (1,000 unit) tablet magnesium oxide 400 mg (241.3 mg 400 mg PO DAILY 06/2603/19/25 History magnesium) tablet melatonin 10 mg tablet 10 mg PO HS PRN 06/26/22 History metformin 500 mg tablet,extended 1,000 mg PO BID 06/2603/19/25 History release 24 hr multivitamin 1 tab PO DAILY 06/26/2203/04 History omega-3 fatty acids 1,000 mg 1,000 mg PO DAILY 2 03/19/25 History capsule finasteride 5 mg tablet 2.5 mg PO MOWEFR 03/31/23 History levothyroxine 100 mcg tablet 100 mcg PO DAILY 03/31/23 03/19/25 History carvedilol 25 mg tablet 12.5 mg PO BID 03/19/25 His tory empagliflozin 25 mg tablet mg PO 03/19/25 03/19/25 His tory (Jardiance) ergocalciferol (vitamin D2) 1,250 PO 03/19/25 03/19/25 History mcg (50,000 unit) capsule insulin human U-100 NPH-regulr See Rx Instructions sub cut .COMPLEX 03/19/25 03/19/25 History 70-30 mix 100 unit/mL subcutaneous susp (Novolin 70/30 U-100 Insulin) insulin regular human 100 unit/mL See Rx Instructions subcut TID 03/19/25 03/19/25 History injection solution (Novolin R Regular U-100 Insulin) lisinopril 40 mg tablet 20 mg PO QDAY 03/19/2503/19 History Have you fallen in the past year?: No [facility] Medical History (Updated 03/19/25 @ 09:23 by Dean Peng NP, MEDICAL SURGICAL TECH-C) Obesity Ischemic cardiomyopathy Essential (primary) hypertension Hyperlipidemia Type 2 diabetes mellitus with foot ulcer Hypothyroidism Atherosclerotic heart disease of [place] coronary artery without angina pectoris Surgical History History of partial amputation of toe of left foot History of foot surgery H/O coronary artery bypass surgery (10/16/16) Family History Mother CAD (coronary artery disease) Diabetes Father CAD (coronary artery disease) Diabetes Sudden cardiac Social History Smoking Status: Never smoker alcohol intake: current alcohol intake frequency: a few times a month Alcohol type: beer substance use type: does not use caffeine: No ROS Const Const: Positive for fatigue and difficulty sleeping; Negative for weakness Eyes Eyes: Negative for change in vision ENT ENT: Negative for dizziness or balance problems Cardio Chest Pain: No Palpitations: No Edema: Bilateral (cellulitis on both legs presently) Muscle aches with walking: None Resp Respiratory: Negative for SOB with activity, SOB at rest or SOB orthopneaundefinedSOB lying down GI GI: Negative nausea or heartburn : Negative for hematuria or frequent nighttime urination/ nocturia Musc Musc: Negative for balance problems Skin Skin: Negative non-healing lesions or rash Neuro Neuro: Negative for dizziness, lightheadedness, near syncope, syncope or weakness Endo Endo: Positive for fatigue Allergy Allergy/Immunology: Negative for rash Cardiology Exam Const Appearance: cooperative, healthy appearing, comfortable and no acute distress Nutritional Appearance: average body habitus and well nourished Orientation: alert, awake and oriented x3 Head Head: normal to inspection Ears: hearing grossly normal bilaterally Nose: external nose normal Face and Sinus: face symmetric Mouth: moist mucous membranes Eyes General: appearance normal, both eyes and all related structures Eyelids: eyelids normal EOM: EOM intact bilaterally Neck Neck: normal visual inspection and no JVD Carotids: normal carotid upstroke Chest Chest inspection: normal inspection of the chest, symmetric chest movement and normal respiratory effort; Negative cough Auscultation: Bilateral: Clear to Auscultation Cardio Rate: regular rate Rhythm: regular rhythm Heart sounds: S1 normal, S2 normal and murmur; Negative rub or gallop Murmur: Grade 1/6 and RAYMOND loudest LLSB GI GI: normal to inspection Neuro General: patient alert, patient awake, patient oriented x3 and CN's II-XI intactbilaterally Skin Skin: no rashes or lesions noted Extremities Pulses: Normal: Right Posterior Tibial Pulse, Left Posterior Tibial Pulse, RightRadial Pulse and Left Radial Pulse Lower Extremity Edema: None: Bilateral (ZECHARIAH Wrapped) Psych Psychological: normal affect Supplemental Info Supplemental Information Echocardiogram from 01/05/2022: Interpretation Summary Normal LV size. Mild concentric left ventricular hypertrophy. The left atrium is moderately enlarged. The estimated ejection fraction is 45 %. Stage 2 diastolic dysfunction. Pulmonary artery systolic pressure is 30 mmHg. Contrast injection was performed. Compared to previous study, the left ventricular systolic function has improved. ECHOCARDIOGRAM 04/25/2021: Summary 1. Technically fair quality study. Definity contrast used for opacification ofendocardial border. 2. Severely dilated ventricle with severe global systolic dysfunction, LVEF by biplane measurement 29%. 3. Elevated LV filling pressures consistent with grade 2 diastolic dysfunction. 4. Mildly thickened/calcified trileaflet aortic valve resulting in mild aortic regurgitation and no hemodynamically significant stenosis. 5. Mild mitral regurgitation. 6. Estimated RVSP 20 mmHg. 7. Mildly dilated ascending aorta measuring 3.7 cm. Normal caliber aortic root. Pharmacologic myocardial perfusion stress test 10/02/2019 Conclusion: Myocardial perfusion stress test with previous extensive inferior and inferoseptal infarct. Ischemic cardiomyopathy. CARDIOTHORACIC SURGERY REPORT 10/16/2016 POSTOPERATIVE DIAGNOSES: 1. Coronary artery disease. 2. Ischemic cardiomyopathy. PROCEDURES PERFORMED: Coronary artery bypass graft x3 with left internal mammaryartery to diagonal branch (and reverse saphenous vein graft to the ramus intermedius branch and the posterior descending artery; with endoscopic vein harvesting). HEART CATHETERIZATION 10/02/2016 CONCLUSION: 1. Left ventricular systolic dysfunction with an estimated ejection fraction of35% with segmental wall motion abnormalities. 2. Left main coronary artery, which is noted to be normal. 3. Right coronary artery, which is totally occluded proximally with homo-collaterals. 4. Left anterior descending artery with 70% stenosis noted in the proximal region and 70-80% stenosis noted in the mid to distal region. 5. Left circumflex artery with proximal 80% stenosis noted in the second obtusemarginal branch. Labs: No Data to Display Diagnostics: Echocardiogram Stress Test Stress Test Nuclear Medicine Cardiac Catheterization Chest X-Ray Pulmonary: No Data to Display Past Visits: Cardiology Visit 03/19/25 Assessment and Plan Assessment and Plan (1) H/O coronary artery bypass surgery: Status: Chronic Comment: CABG X 3 with PETERS to D1, SVG to Ramus, SVG to RPDA 10/16/16 Plan: This appears stable. We will continue to monitor and not make any medication regimen changes. We will continue to promote risk factor and lifestyle modification. His last stress test was 2018 with no obvious ischemia. As he is diabetic and it has been approximately 6 years since last stress test, he undergo surveillance stress test. Depending on results, further recommendation be made. (2) Ischemic cardiomyopathy: Status: Chronic Plan: Ischemic cardiomyopathy: Echocardiogram 01/05/2022-EF: 45% and stage II diastolic dysfunction [place] [employer] Functional Class: I ACC/AHA stage: C Guideline Directed Medical Therapy: Coreg 12.5 mg p.o. twice daily Lisinopril 20 mg p.o. twice daily Jardiance 25 mg p.o. daily Since last evaluation, he has been started on SGLT2 inhibitor. Due to financialconcerns, his lisinopril has not been changed to Entresto. He is currently on chlorthalidone therapy. Per PCP, his Coreg was reduced on account on kidney function concens. He undergo repeat echocardiogram to evaluate LV function. Aslong his LV function is stable, no changes made. Depending on final results, further recommendation be made. (3) Essential (primary) hypertension: Status: Chronic Plan: Patient's blood pressure is well-controlled today in the office. We will continue to monitor this. We will not make any medication regimen changes. (4) Hyperlipidemia: Status: Chronic Qualifiers: Hyperlipidemia type: unspecified Qualified Code(s): E78.5 - Hyperlipidemia, unspecified Plan: This is monitored by PCP. He will continue with Crestor 20mg PO daily. He was reminded of LDL goal of 70 and below for secondary prevention and has diabetic closer to 50-55. (5) Bradycardia: Status: Chronic Plan: His ECG during stress test in September 2019 showed sinus rhythm with PAC. Red flag symptoms regarding bradycardia was reviewed with him. We will continue to observe. 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 [facility] The importance of diabetes control was reviewed in relation to cardiovascular health. Orders: Orders Echo Complete 3 Months I25.5 - Ischemic cardiomyopathy Nuclear Stress Test - Chemical 3 Months E11.621 - Type 2 diabetes mellitus withfoot ulcer, E78.5 - Hyperlipidemia, unspecified, I10 - Essential (primary) hypertension, I25.5 - Ischemic cardiomyopathy, L97.509 - Non-pressure chronic ulcer of other part of unspecified foot with unspecified severity, R00.1 - Bradycardia, unspecified, Z79.4 - penitentiary (current) use of insulin, Z95.1 - Presence of aortocoronary bypass graft Plan Details Additional Comments: Thank you for allowing us to participate in the patients plan of care, if you have any questions please do not hesitate to call. Plan was reviewed with patient/family member along with red flag symptoms. Understanding was acknowledged. Questions were answered to apparent satisfaction. This note was generated using a voice recognition system and there may be incorrect words, spelling or punctuation that were not noted when reviewing the office note prior to saving. Portions of this documentation were copied and pasted from previous office visitnotes to provide a cohesive continuity of the history. The note has been reviewed, edited, and updated, as necessary. Follow Up: 12-15 Months (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) 6 Months (MEDICAL SURGICAL TECH/PA) Coding Level of Care Code Off vis,est,level 4 Diagnoses H/O coronary artery bypass surgery Z95.1 Ischemic cardiomyopathy I25.5 Essential (primary) hypertension I10 Hyperlipidemia, unspecified hyperlipidemia type E78.5 Hyperlipidemia type: unspecified Bradycardia R00.1 Type 2 diabetes mellitus with foot ulcer, with long-term current use of insulin E11.621; L97.509; Z79.4 Diabetes mellitus chcf insulin use: with chcf use Coding Level of Care Code Off vis,est,level 4 Diagnoses H/O coronary artery bypass surgery Z95.1 Ischemic cardiomyopathy I25.5 Essential (primary) hypertension I10 Hyperlipidemia, unspecified hyperlipidemia type E78.5 Hyperlipidemia type: unspecified Bradycardia R00.1 Type 2 diabetes mellitus with foot ulcer, with long-term current use of insulin E11.621; L97.509; Z79.4 Diabetes mellitus chcf insulin use: with 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 intermodal truck driver use Clinical Quality Measures Falls Risk Screening/Assistive Devices Have you fallen in the past year?: No 03/19/25 0935 <Electronically signed by Dean Peng N P HAZEL-C> Date _ Dean Peng NP MEDICAL SURGICAL TECH-C Cosigner Signature: Date (if applicable) CC: MARIELA Franco [facility] Work Phone: 1(291) 838-166106-11-2025 Evaluation + Plan note* Assessment & Plan Note - Bhakti Chambers PA-C - 03/14/2025 1:00 PM EDTAssociated Problem(s): Hypertension associated with diabetes [facility] Work Phone: 1(440) 373-387106-11-2025 Evaluation + Plan note* Assessment & Plan Note - Bhakti Chambers PA-C - 03/14/2025 1:00 PM EDTAssociated Problem(s): DM (diabetes mellitus), type 2 with neurological complications Orders: CBC and Auto Differential; Future Comprehensive Metabolic Panel; Future Hemoglobin A1C; Future Iron and TIBC; Future Ferritin; Future Magnesium; Future Opiate/Opioid/Benzo Prescription Compliance; Future Gabapentin Serum/Plasma; Future [facility] Work Phone: [phone]) 443-502606-11-2025 Evaluation + Plan note* Assessment & Plan Note - Bhakti Chambers PA-C - 03/14/2025 1:00 PM EDTAssociated Problem(s): Hypothyroidism [facility] Work Phone: [phone]) [phone] Evaluation + Plan note* Assessment & Plan Note - Bhakti Chambers PA-C - 03/14/2025 1:00 PM EDTAssociated Problem(s): Class 2 severe obesity due to excess calories with serious comorbidity and body mass index (BMI) of 37.0 to 37.9 in adult [facility] Work Phone: 1([phone]) 255-660706-11-2025 Evaluation + Plan note* Assessment & Plan Note - Bhakti Chambers PA-C - 03/14/2025 1:00 PM EDTAssociated Problem(s): Charcot foot due to diabetes mellitus (Multi) [facility] Work Phone: [phone] Evaluation + Plan note* Assessment & Plan Note - Bhakti Chambers PA-C - 03/14/2025 1:00 PM EDTAssociated Problem(s): Cervicalgia [facility] Work Phone: 1([phone]) 481-819806-11-2025 History of Present illness Narrative* Bhakti Chambers PA-C - 03/14/2025 1:00 PM EDT Subjective Reason for Visit: Dyllan Huertas is an 64 y.o. male here for a Medicare Wellness visit. Past Medical, Surgical, and Family History reviewed and updated in chart. Reviewed all medications by prescribing practitioner or clinical pharmacist (such as prescriptions,OTCs, herbal therapies and supplements) and documented in the medical record. Advanced Care Planing discussed. Diagnosis, treatment and prognosis discussed with patient. Patient has capacity to make his/her owndecision. Patient has a living will. Patient is advised to bring a copy of this documenation for the chart. >16 min was spent with patient counseling. HPI Subsequent Medicare wellness LABS Med check Cardio - dr dailey (typically states prior PCP has been filling tho) CAD/ CHF - given bradycardia - January 2025 we dec coreg to 1/2 tab po bid and pt to monitor pulse and call if concerns - follow up with cardio is set in near future - he denies symptoms or concerns Iron - taking OTC 1 tab 3x/week LE edema - bumex - on 0.5 mg daily HTN- Hair - on finasteride and doing 1/2 tab M/W/F PBH - tamsulosin Stage 3 renal dz - will need to monitor and discussed concern with some meds DM Jardiance Metformin 70/30- 30 AM and 30 PM - titrate up to 40 bid as tolerated Novolin R - taking 20 tid - inc to 25 breakfast and dinner and 20 with evening Charcot -hx of amputation - following with wound/pod Consider endo referral Diabetic neuropathy - pt will likely need gabapentin in 3 mo - will aim for utox with labs and contract next visit Neck pain x >6 months Some days worse than others Feels stiff and limited ROM No known injury Taking tylenol 2 AM, using roller topical meds Xray updated = consider, PT, chiro treatment opt Preventative testing PSA February 2025 Colon - february 2023 - 4 mm polyp- repeat in 5 years - dr beaulieu Fall - NEG March 2025 Phq2 - NEG March 2025 Over 15 minutes was spent discussing obesity - how this affects lab results, complicates medical problems and discussed various treatment options including diet and exercise and medications if needed. Pt working on diet and ex what he can but limited with diabetic complications. Consider trial of ozempic type med to see if this helps with BS and weight loss Patient Care Team: Bhakti Chambers PA-C as PCP - General (Internal Medicine) Jace Reeder DO as PCP - [employer] PCP Review of Systems Constitutional: Positive for fatigue. Negative for chills and fever. HENT: Negative for congestion, rhinorrhea, sinus pain, sore throat and tinnitus. Eyes: Negative for discharge, redness and visual disturbance. Respiratory: Negative for cough, chest tightness, shortness of breath and wheezing. Cardiovascular: Negative for chest pain, palpitations and leg swelling. Gastrointestinal: Negative for abdominal pain, constipation, diarrhea, nausea and vomiting. Endocrine: Negative for cold intolerance and heat intolerance. Genitourinary: Negative for flank pain, frequency and urgency. Musculoskeletal: Positive for arthralgias, back pain and gait problem. Negative for neck pain. Skin: Negative for rash and wound. Neurological: Positive for numbness. Negative for dizziness, tremors, syncope and headaches. Hematological: Does not bruise/bleed easily. Psychiatric/Behavioral: Negative for confusion, sleep disturbance and suicidal ideas. Objective Vitals: BP 132/78 Pulse 72 Ht 1.803 m (5' 11) Wt 122 kg (268 lb) BMI 37.38 kg/m Physical Exam Vitals reviewed. Constitutional: Appearance: Normal appearance. He is obese. HENT: Head: Normocephalic. Right Ear: External ear normal. Left Ear: External ear normal. Nose: Nose normal. No congestion or rhinorrhea. Mouth/Throat: Mouth: Mucous membranes are moist. Eyes: Extraocular Movements: Extraocular movements intact. Conjunctiva/sclera: Conjunctivae normal. Pupils: Pupils are equal, round, and reactive to light. Cardiovascular: Rate and Rhythm: Normal rate and regular rhythm. Pulses: Normal pulses. Pulmonary: Effort: Pulmonary effort is normal. Breath sounds: Normal breath sounds. Abdominal: General: Bowel sounds are normal. Palpations: Abdomen is soft. Tenderness: There is no abdominal tenderness. There is no right CVA tenderness or left CVA tenderness. Musculoskeletal: General: Tenderness present. Normal range of motion. Cervical back: Normal range of motion and neck supple. No tenderness. Comments: Wearing boots Feet wrapped Skin: General: Skin is warm and dry. Neurological: General: No focal deficit present. Mental Status: He is alert and oriented to person, place, and time. Psychiatric: Mood and Affect: Mood normal. Behavior: Behavior normal. Testing Component Latest Ref Rn 02/21/2025 WHITE BLOOD CELL COUNT 3.8 - 10.8 Thousand/uL 5.7 RED BLOOD CELL COUNT 4.20 - 5.80 Million/uL 4.34 HEMOGLOBIN 13.2 - 17.1 g/dL 12.8 (L) HEMATOCRIT 38.5 - 50.0 % 39.8 MCV 80.0 - 100.0 fL 91.7 MCH 27.0 - 33.0 pg 29.5 MCHC 32.0 - 36.0 g/dL 32.2 RDW 11.0 - 15.0 % 14.6 PLATELET COUNT 140 - 400 Thousand/uL 196 MPV 7.5 - 12.5 fL 11.2 ABSOLUTE NEUTROPHILS 1,500 - 7,800 cells/uL 4,446 ABSOLUTE LYMPHOCYTES 850 - 3,900 cells/uL 496 (L) ABSOLUTE MONOCYTES 200 - 950 cells/uL 513 ABSOLUTE EOSINOPHILS 15 - 500 cells/uL 222 ABSOLUTE BASOPHILS 0 - 200 cells/uL 23 NEUTROPHILS % 78 LYMPHOCYTES % 8.7 MONOCYTES % 9.0 EOSINOPHILS % 3.9 BASOPHILS % 0.4 GLUCOSE 65 - 99 mg/dL 227 (H) UREA NITROGEN (BUN) 7 - 25 mg/dL 42 (H) CREATININE 0.70 - 1.35 mg/dL 1.62 (H) EGFR > OR = 60 mL/min/1.73m2 48 (L) SODIUM 135 - 146 mmol/L 139 POTASSIUM 3.5 - 5.3 mmol/L 5.1 CHLORIDE 98 - 110 mmol/L 100 CARBON DIOXIDE 20 - 32 mmol/L 26 ELECTROLYTE BALANCE 7 - 17 mmol/L (calc) 13 CALCIUM 8.6 - 10.3 mg/dL 10.2 PROTEIN, TOTAL 6.1 - 8.1 g/dL 7.2 ALBUMIN 3.6 - 5.1 g/dL 4.3 BILIRUBIN, TOTAL 0.2 - 1.2 mg/dL 0.4 ALKALINE PHOSPHATASE 35 - 144 U/L 62 AST 10 - 35 U/L 38 (H) ALT 9 - 46 U/L 24 CREATININE, RANDOM URINE 20 - 320 mg/dL 50 ALBUMIN, URINE See Note: mg/dL 16.2 ALBUMIN/CREATININE RATIO, RANDOM URINE <30 mg/g creat 324 (H) HEMOGLOBIN A1c <5.7 % 12.7 (H) eAG (mg/dL) mg/dL 318 eAG (mmol/L) mmol/L 17.6 IRON, TOTAL 50 - 180 mcg/dL 77 IRON BINDING CAPACITY 250 - 425 mcg/dL (calc) 464 (H) % SATURATION 20 - 48 % (calc) 17 (L) TSH 0.40 - 4.50 mIU/L 2.00 T4, FREE 0.8 - 1.8 ng/dL 1.4 FERRITIN 24 - 380 ng/mL 45 MAGNESIUM 1.5 - 2.5 mg/dL 2.3 VITAMIN D,25-OH,TOTAL,IA 30 - 100 ng/mL 16 (L) PSA, TOTAL < OR = 4.00 ng/mL 0.07 DM - not to goal - see HPI Stage 3 kidney dz - stable - will monitor Fatty liver - will monitor - consider updated imaging Lower iron - cont on supplement /inc Vit D - add on weekly supplement Impression MDM 1) COMPLEXITY: 1 OR MORE CHRONIC CONDITION WITH EXACERBATION, OR PROGRESSION OR SIDE EFFECT OF TREATMENT ADDRESSED 2)DATA: TESTS INTERPRETED AND OR ORDERED, TOOK INDEPENDENT HISTORY OR RECORDS REVIEWED 3)RISK: MODERATE RISK DUE TO NATURE OF MEDICAL CONDITIONS/COMORBIDITY OR MEDICATIONS ORDERED OR SURGICAL OR PROCEDURE REFERRAL, . Reviewed labs and Testing on file Patient to follow diet low in cholesterol, fat, and sodium. Patient is advised to increase Exercise. Patient is recommended to lose weight. Reviewed Meds and discussed common side effects Continue as directed Patient is strongly advised to be compliant with recommendations. Return to Clinic sooner if needed. Patient denies further questions/concerns at this time Assessment & Plan Routine general medical examination at health care facility Vitamin D deficiency Orders: ergocalciferol (Vitamin D-2) 1250 mcg (50,000 units) capsule; Take 1 capsule (50,000 Units) by mouth 1 (one) time per week. Vitamin D 25-Hydroxy,Total (for eval of Vitamin D levels); Future Hypertension associated with diabetes DM (diabetes mellitus), type 2 with neurological complications Orders: CBC and Auto Differential; Future Comprehensive Metabolic Panel; Future Hemoglobin A1C; Future Iron and TIBC; Future Ferritin; Future Magnesium; Future Opiate/Opioid/Benzo Prescription Compliance; Future Gabapentin Serum/Plasma; Future Acquired hypothyroidism Low ferritin Orders: Iron and TIBC; Future Ferritin; Future Iron deficiency anemia, unspecified iron deficiency anemia type Orders: Iron and TIBC; Future Ferritin; Future Medication management Orders: Opiate/Opioid/Benzo Prescription Compliance; Future Gabapentin Serum/Plasma; Future Medicare annual wellness visit, subsequent Advanced care planning/counseling discussion Class 2 severe obesity due to excess calories with serious comorbidity and body mass index (BMI) of37.0 to 37.9 in adult Charcot foot due to diabetes mellitus (Multi) Cervicalgia FU in 6 weeks with BS log check FU in 3-4 mo with labs at [facility] fasting and med check documented in this [facility] Work Phone: [phone] Miscellaneous Notes* Assessment & Plan Note - Bhakti Chambers PA-C - 03/14/2025 1:00 PM EDTAssociated Problem(s): Hypertension associated with diabetes * Assessment & Plan Note - Bhakti Chambers PA-C - 03/14/2025 1:00 PM EDT Associated Problem(s): DM (diabetes mellitus), type 2 with neurological complications Orders: CBC and Auto Differential; Future Comprehensive Metabolic Panel; Future Hemoglobin A1C; Future Iron and TIBC; Future Ferritin; Future Magnesium; Future Opiate/Opioid/Benzo Prescription Compliance; Future Gabapentin Serum/Plasma; Future * Assessment & Plan Note - Bhakti Chambers PA-C - 03/14/2025 1:00 PM EDT Associated Problem(s): Hypothyroidism * Assessment & Plan Note - Bhakti Chambers PA-C - 03/14/2025 1:00 PM EDT Associated Problem(s): Class 2 severe obesity due to excess calories with serious comorbidity and body mass index (BMI) of 37.0 to 37.9 in adult * Assessment & Plan Note - Bhakti Chambers PA-C - 03/14/2025 1:00 PM EDT Associated Problem(s): Charcot foot due to diabetes mellitus (Multi) * Assessment & Plan Note - Bhakti Chambers PA-C - 03/14/2025 1:00 PM EDT Associated Problem(s): Cervicalgia documented in this [facility] Work Phone: [phone] History of Present illness Narrative* Alena Mora DPM - 03/13/2025 2:39 PM EDT Images from the original note were not included. Established Patient Visit Alena Mora DPM Patient Name: Dyllan Huertas. . Date of : 1960, 64 y.o.. Gender: male. Subjective: Patient is a pleasant 64-year-old male who presents to clinic for follow-up evaluation of left great toe and left fifth toe pressure ulceration. Patient also reports that he developed new blisters onthe right and left leg. He is unsure how that happened. States that the blister broke resulting in loss of drainage. Moreover, patient has applied Betadine to the legs. Patient states that he has been changing dressing daily using Betadine wet-to-dry. No other pedal complaints at this time. Patientdenies any trauma or injury. Denies fevers, chills, nausea, vomiting, chest pain, shortness of breath, or any other constitutional symptoms. Past Medical History: Diagnosis Date Acquired equinus deformity of right foot Acquired hammer toe of right foot Angina pectoris with documented spasm Calluse Cellulitis of left toe Charcot's joint, right ankle and foot Chronic osteomyelitis with draining sinus, right ankle and foot ([facility]) Complication of external fixation device with internal components Coronary artery disease Dehiscence of incision Diabetes mellitus, type 2 ([facility]) Dystrophic nail Edema Effusion of ankle and foot joint Fracture of metatarsal, closed Fungal toenail infection Hyperlipidemia Hypertension Hypothyroidism 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 ([facility]) Non-pressure chronic ulcer of other part of left foot limited to breakdown of skin ([facility]) Non-pressure chronic ulcer of other part of right foot with fat layer exposed ([facility]) limited to breakdown of skin Obesity Overflow incontinence Peripheral neuropathy Pressure ulcer of right foot, stage 2 ([facility]) S/P foot surgery, right 12/09/2019 11/20/2019Right foot reconstruction surgery with external fixation 12/02/2019 Right foot I and D Sleep apnea, obstructive does not use CPAP Tibia/fibula fracture Past Surgical History: Procedure Laterality Date APPENDECTOMY ARTHRODESIS SUBTALAR Right 05/01/2020 Procedure: RIGHT ANKLE ARTHRODESIS, SUBTALAR ARTHRODESIS RIGHT ANKLE, Bone [place] Graft From RightFibula, Application of Splint; Surgeon: Alena Mora DPM; [facility]: [facility]; Service: Podiatry ARTHROPLASTY TOE Right 01/25/2019 Procedure: ARTHROPLASTY 2ND TOE RIGHT FOOT; Surgeon: Rosa M Robles DPM; [facility] [facility]; Service: Podiatry CABG 2017 CARDIAC SURGERY 2017 CABG tripe bypass CLOSED REDUCTION PERCUTANEOUS PINNING LOWER EXTREMITY N/A 12/02/2019 Procedure: ADJUSTMENT of EXTERNAL FIXATOR; Surgeon: Alena Mora DPM; Location: [facility]; Service: Podiatry CT COLONOSCOPY 02/24/[address] COLONOSCOPY 03/21/2023 CT COLONOSCOPY CYST REMOVED FROM CHEST N/A INCISION AND DRAINAGE FOOT AND ANKLE Right 12/02/2019 Procedure: RIGHT FOOT I&D; Surgeon: Alena Mora DPM; Location: [facility]; Service: Podiatry LIPOSUCTION METAL IN LEFT LEFT WRIST AND LEFT 5TH TOE Left ORIF FOOT FRACTURE Left 07/03/2013 5th metatarsal ORTHOPEDIC SURGERY WI AMPUTATION TOE INTERPHALANGEAL JOINT Left 06/29/2024 Procedure: left partial 2nd toe amputation; Surgeon: Alena Mora DPM; Location: [facility];Service: Podiatry RECONSTRUCTION FOOT CHARCOT Right 11/20/2019 Procedure: RIGHT FOOT RECONSTRUCTION WITH APPLICATION OF CIRCULAR STATIC EXTERNAL FIXATION; Surgeon: Alena Mora DPM; [facility]: [facility]; Service: Podiatry RT FOOT SURGERY Right TUMMY TUCK N/A Physical Examination: BP 125/68 (BP Location: Right arm, Patient Position: Sitting, BP Cuff Size: Adult) Pulse 63 Temp 98 F (36.7 C) (Oral) General Appearance: Alert, cooperative, no distress, appears stated age. Podiatric Exam Vascular: DP and PT pulses are palpable. Capillary refill time is less than 3 secs to distal digits. Skin temperature is warm to cool from proximal tibial tuberosity to distal digit. + 2 pitting edema noted to bilateral lower extremities. Neurological: Gross sensation is intact. Protective sensation is absent using the [place] Asif monofilament. Dermatologic: There is a full-thickness ulceration noted at the distal tuft of the left great toe and the lateral aspect of the left fifth toe, improved. Posterior and anterior right lower extremity blister with serous drainage. Posterior left lower extremity blister. No surrounding erythema, edemaor any acute signs infection. Musculoskeletal: Patient is able to wiggle digits. Ankle joint range of motion is intact. Compartments soft and compressible. No calf pain Diagnoses: 1. Blister of right lower extremity, initial encounter 2. Blister of left lower extremity, initial encounter 3. Bilateral lower extremity edema 4. Chronic venous insufficiency 5. Skin ulcer of small toe of left foot, with fat layer exposed (HCC) 6. Pressure ulcer of toe of left foot, stage 2 (HCC) 7. Diabetic peripheral neuropathy (HCC) Assessment/Plan: Patient was seen and evaluated. Discussed all clinical findings Patient has worsening edema to bilateral lower extremities. Resulting in blisters to the right and left legs. These blisters are large in size and require Betadine wet-to-dry dressing. This was applied today in the office, followed by 4 x 4's, Kerlix and Zechariah bandage from toes to knee Patient has a full-thickness ulcer noted at the distal tuft of the left great toe. This requires excisional debridement to remove nonviable tissue and biofilm. This was performed using #15 blade downto and including subcutaneous tissue. Following debridement, applied Kb to the left great toe. Patient is instructed to change dressing daily to the left great toe. Postdebridement wound measured0. 5 x 0. 5 x 0.2 cm. Moreover, patient has a full-thickness ulcer noted to the distal lateral aspect of the left fifth toe that requires excisional debridement remove nonviable soft tissue and biofilm. This was performedusing a #15 blade down to and including subcutaneous tissue. Following debridement, applied Betadine wet-to-dry, 4 x 4, Kerlix. Postdebridement wound measured 0.2 x 0. 4 x 0.2 cm. All questions were answered to patient satisfaction. Patient understands to call with any questionsor concerns. Follow-up in 1 week for reevaluation. This note was partially created using voice recognition software and is inherently subject to errors including those of syntax and sound-alike substitutions which may escape proofreading. In such instances, original meaning may be extrapolated by contextual derivation. Alena Mora DPM, MS Podiatric Physician & Surgeon documented in this [id number] NoteEstablished Patient Visit Alena Mora DPM Patient Name: Dyllan Huertas. . Date of : 1960, 64 y.o.. Gender: male. Subjective: Patient is a pleasant 64-year-old male who presents to clinic for follow-up evaluation of left great toe and left fifth toe pressure ulceration. Patient also reports that he developed new blisters on the right and left leg. He is unsure how that happened. States that the blister broke resulting in loss of drainage. Moreover, patient has applied Betadine to the legs. Patient states that he has been changing dressing daily using Betadine wet-to-dry. No other pedal complaints at this time. Patient denies any trauma or injury. Denies fevers, chills, nausea, vomiting, chest pain, shortness of breath, or any other constitutional symptoms. Past Medical History: Diagnosis Date Acquired equinus deformity of right foot Acquired hammer toe of right foot Angina pectoris with documented spasm Calluse Cellulitis of left toe Charcot's joint, right ankle and foot Chronic osteomyelitis with draining sinus, right ankle and foot ([facility]) Complication of external fixation device with internal components Coronary artery disease Dehiscence of incision Diabetes mellitus, type 2 ([facility]) Dystrophic nail Edema Effusion of ankle and foot joint Fracture of metatarsal, closed Fungal toenail infection Hyperlipidemia Hypertension Hypothyroidism 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 ([facility]) Non-pressure chronic ulcer of other part of left foot limited to breakdown of skin ([facility]) Non-pressure chronic ulcer of other part of right foot with fat layer exposed ([facility]) limited to breakdown of skin Obesity Overflow incontinence Peripheral neuropathy Pressure ulcer of right foot, stage 2 ([facility]) S/P foot surgery, right 12/09/2019 11/20/2019Right foot reconstruction surgery with external fixation 12/02/2019 Right foot I and D Sleep apnea, obstructive does not use CPAP Tibia/fibula fracture Past Surgical History: Procedure Laterality Date APPENDECTOMY ARTHRODESIS SUBTALAR Right 05/01/2020 Procedure: RIGHT ANKLE ARTHRODESIS, SUBTALAR ARTHRODESIS RIGHT ANKLE, Bone [place] Graft From Right Fibula, Application of Splint; Surgeon: Alena Mora DPM; [facility]: [facility]; Service: Podiatry ARTHROPLASTY TOE Right 01/25/2019 Procedure: ARTHROPLASTY 2ND TOE RIGHT FOOT; Surgeon: Rosa M Robles DPM; [facility] [facility]; Service: Podiatry CABG 2017 CARDIAC SURGERY 2017 CABG tripe bypass CLOSED REDUCTION PERCUTANEOUS PINNING LOWER EXTREMITY N/A 12/02/2019 Procedure: ADJUSTMENT of EXTERNAL FIXATOR; Surgeon: Alena Mora DPM; [facility]: [facility]; Service: Podiatry CT COLONOSCOPY 02/24/[address] COLONOSCOPY 03/21/2023 CT COLONOSCOPY CYST REMOVED FROM CHEST N/A INCISION AND DRAINAGE FOOT AND ANKLE Right 12/02/2019 Procedure: RIGHT FOOT I&D; Surgeon: Alena Mora DPM; [facility]; Service: Podiatry LIPOSUCTION METAL IN LEFT LEFT WRIST AND LEFT 5TH TOE Left ORIF FOOT FRACTURE Left 07/03/2013 5th metatarsal ORTHOPEDIC SURGERY WI AMPUTATION TOE INTERPHALANGEAL JOINT Left 06/29/2024 Procedure: left partial 2nd toe amputation; Surgeon: Alena Mora DPM; [facility]; Service: Podiatry RECONSTRUCTION FOOT CHARCOT Right 11/20/2019 Procedure: RIGHT FOOT RECONSTRUCTION WITH APPLICATION OF CIRCULAR STATIC EXTERNAL FIXATION; Surgeon: Alena Mora DPM; [facility]; Service: Podiatry RT FOOT SURGERY Right SHARMILA JEONG N/A Physical Examination: BP 125/68 (BP Location: Right arm, Patient Position: Sitting, BP Cuff Size: Adult) Pulse 63 Temp 98 degrees F (36.7 degrees C) (Oral) General Appearance: Alert, cooperative, no distress, appears stated age. Podiatric Exam Vascular: DP and PT pulses are palpable. Capillary refill time is less than 3 secs to distal digits. Skin temperature is warm to cool from proximal tibial tuberosity to distal digit. + 2 pitting edema noted to bilateral lower extremities. Neurological: Gross sensation is intact. Protective sensation is absent using the [place] Asif monofilament. Dermatologic: There is a full-thickness ulceration noted at the distal tuft of the left great toe and the lateral aspect of the left fifth toe, improved. Posterior and anterior right lower extremity blister with serous drainage. Posterior left lower extremity blister. No surrounding erythema, edema or any acute signs infection. Musculoskeletal: Patient is able to wiggle digits. Ankle joint range of motion is intact. Compartments soft and compressible. No calf pain Diagnoses: 1. Blister of right lower extremity, initial encounter 2. Blister of left lower extremity, initial encounter 3. Bilateral lower extremity edema 4. Chronic venous insufficiency 5. Skin ulcer of small toe of left foot, with fat layer exposed (HCC) 6. Pressure (more content not included)...[facility]05-27-2025 Note Established Patient Visit Alena Mora DPM Patient Name: Dyllan Huertas. . Date of : 1960, 64 y.o.. Gender: male. Subjective: Patient is a pleasant 64-year-old male who presents to clinic for follow-up evaluation of left great toe and left fifth toe pressure ulceration. Patient also had a small wound on his right second toe which has now resolved. Patient states that he has been changing dressing daily using Betadine wet-to-dry. No other pedal complaints at this time. Patient denies any trauma or injury. Denies fevers, chills, nausea, vomiting, chest pain, shortness of breath, or any other constitutional symptoms. Past Medical History: Diagnosis Date Acquired equinus deformity of right foot Acquired hammer toe of right foot Angina pectoris with documented spasm Calluse Cellulitis of left toe Charcot's joint, right ankle and foot Chronic osteomyelitis with draining sinus, right ankle and foot ([facility]) Complication of external fixation device with internal components Coronary artery disease Dehiscence of incision Diabetes mellitus, type 2 ([facility]) Dystrophic nail Edema Effusion of ankle and foot joint Fracture of metatarsal, closed Fungal toenail infection Hyperlipidemia Hypertension Hypothyroidism 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 ([facility]) Non-pressure chronic ulcer of other part of left foot limited to breakdown of skin ([facility]) Non-pressure chronic ulcer of other part of right foot with fat layer exposed ([facility]) limited to breakdown of skin Obesity Overflow incontinence Peripheral neuropathy Pressure ulcer of right foot, stage 2 ([facility]) S/P foot surgery, right 12/09/2019 11/20/2019Right foot reconstruction surgery with external fixation 12/02/2019 Right foot I and D Sleep apnea, obstructive does not use CPAP Tibia/fibula fracture Past Surgical History: Procedure Laterality Date APPENDECTOMY ARTHRODESIS SUBTALAR Right 05/01/2020 Procedure: RIGHT ANKLE ARTHRODESIS, SUBTALAR ARTHRODESIS RIGHT ANKLE, Bone [place] Graft From Right Fibula, Application of Splint; Surgeon: Alena Mora DPM; [facility]; Service: Podiatry ARTHROPLASTY TOE Right 01/25/2019 Procedure: ARTHROPLASTY 2ND TOE RIGHT FOOT; Surgeon: Rosa M Robles DPM; Location: [facility] [place]; Service: Podiatry CABG 2017 CARDIAC SURGERY 2017 CABG tripe bypass CLOSED REDUCTION PERCUTANEOUS PINNING LOWER EXTREMITY N/A 12/02/2019 Procedure: ADJUSTMENT of EXTERNAL FIXATOR; Surgeon: Alena Mora DPM; Location: [facility]; Service: Podiatry CT COLONOSCOPY 02/24/[address] COLONOSCOPY 03/21/2023 CT COLONOSCOPY CYST REMOVED FROM CHEST N/A INCISION AND DRAINAGE FOOT AND ANKLE Right 12/02/2019 Procedure: RIGHT FOOT I&D; Surgeon: Alena Mora DPM; [facility]: [facility]; Service: Podiatry LIPOSUCTION METAL IN LEFT LEFT WRIST AND LEFT 5TH TOE Left ORIF FOOT FRACTURE Left 07/03/2013 5th metatarsal ORTHOPEDIC SURGERY WI AMPUTATION TOE INTERPHALANGEAL JOINT Left 06/29/2024 Procedure: left partial 2nd toe amputation; Surgeon: Alena Mora DPM; [facility]; Service: Podiatry RECONSTRUCTION FOOT CHARCOT Right 11/20/2019 Procedure: RIGHT FOOT RECONSTRUCTION WITH APPLICATION OF CIRCULAR STATIC EXTERNAL FIXATION; Surgeon: Alena Mora DPM; [facility]; Service: Podiatry RT FOOT SURGERY Right TUMMY JOSECK N/A Physical Examination: BP 115/71 (BP Location: Right arm, Patient Position: Sitting, BP Cuff Size: Adult) Pulse 79 Temp 97.7 degrees F (36.5 degrees C) (Oral) General Appearance: Alert, cooperative, no distress, appears stated age. Podiatric Exam Vascular: DP and PT pulses are palpable. Capillary refill time is less than 3 secs to distal digits. Skin temperature is warm to cool from proximal tibial tuberosity to distal digit. + 3 pitting edema noted to bilateral lower extremities, improved Neurological: Gross sensation is intact. Protective sensation is absent using the [place]if monofilament. Dermatologic: Small partial-thickness ulceration noted to the dorsal right second toe has now epithelialized. There is a full-thickness ulceration noted at the distal tuft of the left great toe and the lateral aspect of the left fifth toe, improved. No surrounding erythema, edema or any acute signs of infection. Musculoskeletal: Patient is able to wiggle digits. Ankle joint range of motion is intact. Compartments soft and compressible. No calf pain Diagnoses: 1. Pressure ulcer of toe of left foot, stage 2 (HCC) 2. Skin ulcer of small toe of left foot, with fat layer exposed (HCC) 3. Diabetic peripheral neuropathy (HCC) Assessment/Plan: Patient was seen and evaluated. Discussed all clinical findings Patient has no open wounds or ulcerations to bilateral legs. His edema has improved significantly. Patient has a partial-thickness wound to the dorsal right seco (more content not included)...[facility]05-27-2025 History of Present illness Narrative* Alena Mora DPM - 02/27/2025 2:56 PM EDT Images from the original note were not included. Established Patient Visit Alena Mora DPM Patient Name: Dyllan Huertas. . Date of : 1960, 64 y.o.. Gender: male. Subjective: Patient is a pleasant 64-year-old male who presents to clinic for follow-up evaluation of left great toe and left fifth toe pressure ulceration. Patient also had a small wound on his right second toewhich has now resolved. Patient states that he has been changing dressing daily using Betadine wet-to-dry. No other pedal complaints at this time. Patient denies any trauma or injury. Denies fevers, chills, nausea, vomiting, chest pain, shortness of breath, or any other constitutional symptoms. 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) Non-pressure chronic ulcer of other part of left foot limited to breakdown of skin (HCC) Non-pressure chronic ulcer of other part of right foot with fat layer exposed (HCC) limited to breakdown of skin Obesity Overflow incontinence Peripheral neuropathy Pressure ulcer of right foot, stage 2 ([facility]) S/P foot surgery, right 12/09/2019 11/20/2019Right foot reconstruction surgery with external fixation 12/02/2019 Right foot I and D Sleep apnea, obstructive does not use CPAP Tibia/fibula fracture Past Surgical History: Procedure Laterality Date APPENDECTOMY ARTHRODESIS SUBTALAR Right 05/01/2020 Procedure: RIGHT ANKLE ARTHRODESIS, SUBTALAR ARTHRODESIS RIGHT ANKLE, Bone [place] Graft From RightFibula, Application of Splint; Surgeon: Alena Mora DPM; [facility]: [facility]; Service: Podiatry ARTHROPLASTY TOE Right 01/25/2019 Procedure: ARTHROPLASTY 2ND TOE RIGHT FOOT; Surgeon: Rosa M Robles DPM; [facility] [facility]; Service: Podiatry CABG 2017 CARDIAC SURGERY 2017 CABG tripe bypass CLOSED REDUCTION PERCUTANEOUS PINNING LOWER EXTREMITY N/A 12/02/2019 Procedure: ADJUSTMENT of EXTERNAL FIXATOR; Surgeon: Alena Mora DPM; Location: [facility]; Service: Podiatry CT COLONOSCOPY 02/24/[address] COLONOSCOPY 03/21/2023 CT COLONOSCOPY CYST REMOVED FROM CHEST N/A INCISION AND DRAINAGE FOOT AND ANKLE Right 12/02/2019 Procedure: RIGHT FOOT I&D; Surgeon: Alena Mora DPM; Location: [facility]; Service: Podiatry LIPOSUCTION METAL IN LEFT LEFT WRIST AND LEFT 5TH TOE Left ORIF FOOT FRACTURE Left 07/03/2013 5th metatarsal ORTHOPEDIC SURGERY WI AMPUTATION TOE INTERPHALANGEAL JOINT Left 06/29/2024 Procedure: left partial 2nd toe amputation; Surgeon: Alena Mora DPM; Location: [facility];Service: Podiatry RECONSTRUCTION FOOT CHARCOT Right 11/20/2019 Procedure: RIGHT FOOT RECONSTRUCTION WITH APPLICATION OF CIRCULAR STATIC EXTERNAL FIXATION; Surgeon: Alena Mora DPM; [facility]: [facility]; Service: Podiatry RT FOOT SURGERY Right TUM TUCK N/A Physical Examination: BP 115/71 (BP Location: Right arm, Patient Position: Sitting, BP Cuff Size: Adult) Pulse 79 Temp 97.7 F (36.5 C) (Oral) General Appearance: Alert, cooperative, no distress, appears stated age. Podiatric Exam Vascular: DP and PT pulses are palpable. Capillary refill time is less than 3 secs to distal digits. Skin temperature is warm to cool from proximal tibial tuberosity to distal digit. + 3 pitting edema noted to bilateral lower extremities, improved Neurological: Gross sensation is intact. Protective sensation is absent using the [place]if monofilament. Dermatologic: Small partial-thickness ulceration noted to the dorsal right second toe has now epithelialized. There is a full-thickness ulceration noted at the distal tuft of the left great toe and the lateral aspect of the left fifth toe, improved. No surrounding erythema, edema or any acute signsof infection. Musculoskeletal: Patient is able to wiggle digits. Ankle joint range of motion is intact. Compartments soft and compressible. No calf pain Diagnoses: 1. Pressure ulcer of toe of left foot, stage 2 (HCC) 2. Skin ulcer of small toe of left foot, with fat layer exposed (HCC) 3. Diabetic peripheral neuropathy ([facility]) Assessment/Plan: Patient was seen and evaluated. Discussed all clinical findings Patient has no open wounds or ulcerations to bilateral legs. His edema has improved significantly. Patient has a partial-thickness wound to the dorsal right second toe, which has now epithelialized.No need for excisional debridement. No need for dressing changes Patient has a full-thickness ulcer noted at the distal tuft of the left great toe. This requires excisional debridement to remove nonviable tissue and biofilm. This was performed using #15 blade downto and including subcutaneous tissue. Following debridement, applied Kb to the left great toe. Patient is instructed to change dressing daily to the left great toe. Postdebridement wound measured0.8 x 0.8 x 0.2 cm. Moreover, patient has a full-thickness ulcer noted to the distal lateral aspect of the left fifth toe that requires excisional debridement remove nonviable soft tissue and biofilm. This was performedusing a #15 blade down to and including subcutaneous tissue. Following debridement, applied Betadine wet-to-dry, 4 x 4, Kerlix. Postdebridement wound measured 1 point x 0.5 x 0.2 cm. All questions were answered to patient satisfaction. Patient understands to call with any questionsor concerns. Follow-up in 1 week for reevaluation. This note was partially created using voice recognition software and is inherently subject to errors including those of syntax and sound-alike substitutions which may escape proofreading. In such instances, original meaning may be extrapolated by contextual derivation. Alena Mora DPM, MS Podiatric Physician & Surgeon documented in this [id number] Reason for visit Narrative* Imaging (Routine) - Authorized Specialty Diagnoses / Procedures Referred By Contac t Referred To Contact Radiology Diagnoses Cervicalgia Procedures XR cervical spine 2-3 views Bhakti Chambers, PA-C [address] [place] [address] Phone: tel: fax: Referral ID Status Reason Start Date Expiration Date Visits Requested Visits Authorized [id number] Authorized Perform Procedure 01/11/2025 01/11/2026 1 1 [facility] Work Phone: [phone] NoteEstablished Patient Visit Alena Mora DPM Patient Name: Dyllan Huertas. . Date of : 1960, 64 y.o.. Gender: male. Subjective: Patient is a pleasant 64-year-old male who presents to clinic for follow-up evaluation of left great toe and left fifth toe pressure ulceration. Patient also has a small wound on his right second toe. Patient states that he has been changing dressing daily using Betadine wet-to-dry. States that he was unable to come last week due to being sick. No other pedal complaints at this time. Patient denies any trauma or injury. Denies fevers, chills, nausea, vomiting, chest pain, shortness of breath, or any other constitutional symptoms. 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) Non-pressure chronic ulcer of other part of left foot limited to breakdown of skin (HCC) Non-pressure chronic ulcer of other part of right foot with fat layer exposed (HCC) limited to breakdown of skin Obesity Overflow incontinence Peripheral neuropathy Pressure ulcer of right foot, stage 2 ([facility]) S/P foot surgery, right 12/09/2019 11/20/2019Right foot reconstruction surgery with external fixation 12/02/2019 Right foot I and D Sleep apnea, obstructive does not use CPAP Tibia/fibula fracture Past Surgical History: Procedure Laterality Date APPENDECTOMY ARTHRODESIS SUBTALAR Right 05/01/2020 Procedure: RIGHT ANKLE ARTHRODESIS, SUBTALAR ARTHRODESIS RIGHT ANKLE, Bone [place] Graft From Right Fibula, Application of Splint; Surgeon: Alena Mora DPM; [facility]: [facility]; Service: Podiatry ARTHROPLASTY TOE Right 01/25/2019 Procedure: ARTHROPLASTY 2ND TOE RIGHT FOOT; Surgeon: Rosa M Robles DPM; [facility]; Service: Podiatry CABG 2017 CARDIAC SURGERY 2017 CABG tripe bypass CLOSED REDUCTION PERCUTANEOUS PINNING LOWER EXTREMITY N/A 12/02/2019 Procedure: ADJUSTMENT of EXTERNAL FIXATOR; Surgeon: Alena Mora DPM; Location: [facility]; Service: Podiatry CT COLONOSCOPY 02/24/[address] COLONOSCOPY 03/21/2023 CT COLONOSCOPY CYST REMOVED FROM CHEST N/A INCISION AND DRAINAGE FOOT AND ANKLE Right 12/02/2019 Procedure: RIGHT FOOT I&D; Surgeon: Alena Mora DPM; Location: [facility]; Service: Podiatry LIPOSUCTION METAL IN LEFT LEFT WRIST AND LEFT 5TH TOE Left ORIF FOOT FRACTURE Left 07/03/2013 5th metatarsal ORTHOPEDIC SURGERY WI AMPUTATION TOE INTERPHALANGEAL JOINT Left 06/29/2024 Procedure: left partial 2nd toe amputation; Surgeon: Alena Mora DPM; Location: [facility]; Service: Podiatry RECONSTRUCTION FOOT CHARCOT Right 11/20/2019 Procedure: RIGHT FOOT RECONSTRUCTION WITH APPLICATION OF CIRCULAR STATIC EXTERNAL FIXATION; Surgeon: Alena Mora DPM; Location: [facility]; Service: Podiatry RT FOOT SURGERY Right [facility] N/A Physical Examination: BP 131/86 (BP Location: Left arm, Patient Position: Sitting, BP Cuff Size: Adult) Pulse 84 Temp 97.4 degrees F (36.3 degrees C) (Oral) General Appearance: Alert, cooperative, no distress, appears stated age. Podiatric Exam Vascular: DP and PT pulses are palpable. Capillary refill time is less than 3 secs to distal digits. Skin temperature is warm to cool from proximal tibial tuberosity to distal digit. + 3 pitting edema noted to bilateral lower extremities, improved Neurological: Gross sensation is intact. Protective sensation is absent using the [place] Asif monofilament. Dermatologic: Small partial-thickness ulceration noted to the dorsal right second toe. There is a full-thickness ulceration noted at the distal tuft of the left great toe and the lateral aspect of the left fifth toe. No surrounding erythema, edema or any acute signs of infection. Musculoskeletal: Patient is able to wiggle digits. Ankle joint range of motion is intact. Compartments soft and compressible. No calf pain Diagnoses: 1. Pressure ulcer of toe of left foot, stage 2 ([facility]) 2. Skin ulcer of second toe of right foot with fat layer exposed ([facility]) 3. Diabetic peripheral neuropathy ([facility]) Assessment/Plan: Patient was seen and evaluated. Discussed all clinical findings Patient has no open wounds or ulcerations to bilateral legs. His edema has improved significantly. Patient has a partial-thickness wound to the dorsal right (more content not included)...[facility]05-19-2025 History of Present illness Narrative* Alena Mora DPM - 02/19/2025 2:07 PM EDT Images from the original note were not included. Established Patient Visit Alena Mora DPM Patient Name: Dyllan Huertas. . Date of : 1960, 64 y.o.. Gender: male. Subjective: Patient is a pleasant 64-year-old male who presents to clinic for follow-up evaluation of left great toe and left fifth toe pressure ulceration. Patient also has a small wound on his right second toe. Patient states that he has been changing dressing daily using Betadine wet-to-dry. States that he was unable to come last week due to being sick. No other pedal complaints at this time. Patient denies any trauma or injury. Denies fevers, chills, nausea, vomiting, chest pain, shortness of breath, or any other constitutional symptoms. 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) Non-pressure chronic ulcer of other part of left foot limited to breakdown of skin (HCC) Non-pressure chronic ulcer of other part of right foot with fat layer exposed (HCC) limited to breakdown of skin Obesity Overflow incontinence Peripheral neuropathy Pressure ulcer of right foot, stage 2 ([facility]) S/P foot surgery, right 12/09/2019 11/20/2019Right foot reconstruction surgery with external fixation 12/02/2019 Right foot I and D Sleep apnea, obstructive does not use CPAP Tibia/fibula fracture Past Surgical History: Procedure Laterality Date APPENDECTOMY ARTHRODESIS SUBTALAR Right 05/01/2020 Procedure: RIGHT ANKLE ARTHRODESIS, SUBTALAR ARTHRODESIS RIGHT ANKLE, Bone [place] Graft From RightFibula, Application of Splint; Surgeon: Alena Mora DPM; [facility]: [facility]; Service: Podiatry ARTHROPLASTY TOE Right 01/25/2019 Procedure: ARTHROPLASTY 2ND TOE RIGHT FOOT; Surgeon: Rosa M Robles DPM; [facility]; Service: Podiatry CABG 2017 CARDIAC SURGERY 2017 CABG tripe bypass CLOSED REDUCTION PERCUTANEOUS PINNING LOWER EXTREMITY N/A 12/02/2019 Procedure: ADJUSTMENT of EXTERNAL FIXATOR; Surgeon: Alena Mora DPM; Location: [facility]; Service: Podiatry CT COLONOSCOPY 02/24/[address] COLONOSCOPY 03/21/2023 CT COLONOSCOPY CYST REMOVED FROM CHEST N/A INCISION AND DRAINAGE FOOT AND ANKLE Right 12/02/2019 Procedure: RIGHT FOOT I&D; Surgeon: Alena Mora DPM; Location: [facility]; Service: Podiatry LIPOSUCTION METAL IN LEFT LEFT WRIST AND LEFT 5TH TOE Left ORIF FOOT FRACTURE Left 07/03/2013 5th metatarsal ORTHOPEDIC SURGERY WI AMPUTATION TOE INTERPHALANGEAL JOINT Left 06/29/2024 Procedure: left partial 2nd toe amputation; Surgeon: Alena Mora DPM; [facility]: [facility];Service: Podiatry RECONSTRUCTION FOOT CHARCOT Right 11/20/2019 Procedure: RIGHT FOOT RECONSTRUCTION WITH APPLICATION OF CIRCULAR STATIC EXTERNAL FIXATION; Surgeon: Alena Mora DPM; Location: [facility]; Service: Podiatry RT FOOT SURGERY Right [place] N/A Physical Examination: BP 131/86 (BP Location: Left arm, Patient Position: Sitting, BP Cuff Size: Adult) Pulse 84 Temp97.4 F (36.3 C) (Oral) General Appearance: Alert, cooperative, no distress, appears stated age. Podiatric Exam Vascular: DP and PT pulses are palpable. Capillary refill time is less than 3 secs to distal digits. Skin temperature is warm to cool from proximal tibial tuberosity to distal digit. + 3 pitting edema noted to bilateral lower extremities, improved Neurological: Gross sensation is intact. Protective sensation is absent using the [place] Asif monofilament. Dermatologic: Small partial-thickness ulceration noted to the dorsal right second toe. There is a full-thickness ulceration noted at the distal tuft of the left great toe and the lateral aspect of the left fifth toe. No surrounding erythema, edema or any acute signs of infection. Musculoskeletal: Patient is able to wiggle digits. Ankle joint range of motion is intact. Compartments soft and compressible. No calf pain Diagnoses: 1. Pressure ulcer of toe of left foot, stage 2 (HCC) 2. Skin ulcer of second toe of right foot with fat layer exposed (HCC) 3. Diabetic peripheral neuropathy (HCC) Assessment/Plan: Patient was seen and evaluated. Discussed all clinical findings Patient has no open wounds or ulcerations to bilateral legs. His edema has improved significantly. Patient has a partial-thickness wound to the dorsal right second toe. No need for excisional debridement. Applied Betadine wet-to-dry. Patient has a full-thickness ulcer noted at the distal tuft of the left great toe. This requires excisional debridement to remove nonviable tissue and biofilm. This was performed using #15 blade downto and including subcutaneous tissue. Following debridement, applied Betadine wet-to-dry was applied to the left great toe. Patient is instructed to change dressing daily to the left great toe. Postdebridement wound measured 1. 0 x 1. 0 x 0.2 cm. Moreover, patient has a full-thickness ulcer noted to the distal lateral aspect of the left fifth toe that requires excisional debridement remove nonviable soft tissue and biofilm. This was performedusing a #15 blade down to and including subcutaneous tissue. Following debridement, applied Betadine wet-to-dry, 4 x 4, Kerlix. Postdebridement wound measured 1.5 x 0.5 x 0.2 cm. Patient is instructed to change dressing once daily using Betadine wet-to-dry to all open wounds. All questions were answered to patient satisfaction. Patient understands to call with any questionsor concerns. Follow-up in 1 week for reevaluation. This note was partially created using voice recognition software and is inherently subject to errors including those of syntax and sound-alike substitutions which may escape proofreading. In such instances, original meaning may be extrapolated by contextual derivation. Alena Mora DPM, MS Podiatric Physician & Surgeon documented in this [id number] NoteFollow up AUTHENTICATED BY ALENA MORA, ON 02/15/2025 23:01:[address] [place] [address] Ambulatory 02-15-2025 History of Present illness Narrative* Alena Mora DPM - 02/15/2025 11:01 PM EDT Follow up documented in this [id number] NoteEstablished Patient Visit Alena Mora DPM Patient Name: Dyllan Huertas. . Date of : 1960, 64 y.o.. Gender: male. Subjective: Patient is a pleasant 64-year-old male who presents to clinic for follow-up evaluation of left great toe pressure ulceration. Patient also has a small wound on his right second toe. No open wounds to bilateral legs. Patient states that he has been applying Medihoney as instructed. Patient denies any trauma or injury. Denies wearing any closed toe shoe. Denies fevers, chills, nausea, vomiting, chest pain, shortness of breath, or any other constitutional symptoms. Past Medical History: Diagnosis Date Acquired equinus deformity of right foot Acquired hammer toe of right foot Angina pectoris with documented spasm Calluse Cellulitis of left toe Charcot's joint, right ankle and foot Chronic osteomyelitis with draining sinus, right ankle and foot (HCC) Complication of external fixation device with internal components Coronary artery disease Dehiscence of incision Diabetes mellitus, type 2 ([facility]) Dystrophic nail Edema Effusion of ankle and foot joint Fracture of metatarsal, closed Fungal toenail infection Hyperlipidemia Hypertension Hypothyroidism 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) Non-pressure chronic ulcer of other part of left foot limited to breakdown of skin (HCC) Non-pressure chronic ulcer of other part of right foot with fat layer exposed ([facility]) limited to breakdown of skin Obesity Overflow incontinence Peripheral neuropathy Pressure ulcer of right foot, stage 2 ([facility]) S/P foot surgery, right 12/09/2019 11/20/2019Right foot reconstruction surgery with external fixation 12/02/2019 Right foot I and D Sleep apnea, obstructive does not use CPAP Tibia/fibula fracture Past Surgical History: Procedure Laterality Date APPENDECTOMY ARTHRODESIS SUBTALAR Right 05/01/2020 Procedure: RIGHT ANKLE ARTHRODESIS, SUBTALAR ARTHRODESIS RIGHT ANKLE, Bone [place] Graft From Right Fibula, Application of Splint; Surgeon: Alena Mora DPM; [facility]; Service: Podiatry ARTHROPLASTY TOE Right 01/25/2019 Procedure: ARTHROPLASTY 2ND TOE RIGHT FOOT; Surgeon: Rosa M Robles DPM; [facility]; Service: Podiatry CABG 2017 CARDIAC SURGERY 2017 CABG tripe bypass CLOSED REDUCTION PERCUTANEOUS PINNING LOWER EXTREMITY N/A 12/02/2019 Procedure: ADJUSTMENT of EXTERNAL FIXATOR; Surgeon: Alena Mora DPM; Location: [facility]; Service: Podiatry CT COLONOSCOPY 02/24/[address] COLONOSCOPY 03/21/2023 CT COLONOSCOPY CYST REMOVED FROM CHEST N/A INCISION AND DRAINAGE FOOT AND ANKLE Right 12/02/2019 Procedure: RIGHT FOOT I&D; Surgeon: Alena Mora DPM; [facility]: [facility]; Service: Podiatry LIPOSUCTION METAL IN LEFT LEFT WRIST AND LEFT 5TH TOE Left ORIF FOOT FRACTURE Left 07/03/2013 5th metatarsal ORTHOPEDIC SURGERY WI AMPUTATION TOE INTERPHALANGEAL JOINT Left 06/29/2024 Procedure: left partial 2nd toe amputation; Surgeon: Alena Mora DPM; [facility]: [facility]; Service: Podiatry RECONSTRUCTION FOOT CHARCOT Right 11/20/2019 Procedure: RIGHT FOOT RECONSTRUCTION WITH APPLICATION OF CIRCULAR STATIC EXTERNAL FIXATION; Surgeon: Alena Mora DPM; [facility]: [facility]; Service: Podiatry RT FOOT SURGERY Right [place] N/A Physical Examination: BP (!) 147/63 (BP Location: Left arm, Patient Position: Sitting, BP Cuff Size: Adult) Pulse (!) 38 Temp 97 degrees F (36.1 degrees C) (Oral) General Appearance: Alert, cooperative, no distress, appears stated age. Podiatric Exam Vascular: DP and PT pulses are palpable. Capillary refill time is less than 3 secs to distal digits. Skin temperature is warm to cool from proximal tibial tuberosity to distal digit. + 3 pitting edema noted to bilateral lower extremities, improved Neurological: Gross sensation is intact. Protective sensation is absent using the [place] Asif monofilament. Dermatologic: Patient's bilateral lower extremity wounds have epithelialized. An eschar is noted to distal tuft of the left great toe. There is a full-thickness ulcer noted to the dorsal right second toe PIPJ. No erythema, edema or any acute signs of infection. Musculoskeletal: Patient is able to wiggle digits. Ankle joint range of motion is intact. Compartments soft and compressible. No calf pain Diagnoses: No diagnosis found. Assessment/Plan: Patient was seen and evaluated. Discussed all clinical findings Patient has no open wounds or ulcerations to bilateral legs. His edema has improved significantly. However, patient has a full-thickness ulceration, previously an eschar/deep tissue injury, there is in need of excisional debridement to remove nonviable soft tissue and biofilm. This was performed using #15 blade down to and including subcutaneous tissue. Following debridement, a (more content not included)...[facility] [id number] History of Present illness Narrative* Alena Mora DPM - 01/29/2025 1:25 PM EDT Images from the original note were not included. Established Patient Visit Alena Mora DPM Patient Name: Dyllan Huertas. . Date of : 1960, 64 y.o.. Gender: male. Subjective: Patient is a pleasant 64-year-old male who presents to clinic for follow-up evaluation of left great toe pressure ulceration. Patient also has a small wound on his right second toe. No open wounds tobilateral legs. Patient states that he has been applying Medihoney as instructed. Patient denies any trauma or injury. Denies wearing any closed toe shoe. Denies fevers, chills, nausea, vomiting, chest pain, shortness of breath, or any other constitutional symptoms. Past Medical History: Diagnosis Date Acquired equinus deformity of right foot Acquired hammer toe of right foot Angina pectoris with documented spasm Calluse Cellulitis of left toe Charcot's joint, right ankle and foot Chronic osteomyelitis with draining sinus, right ankle and foot ([facility]) Complication of external fixation device with internal components Coronary artery disease Dehiscence of incision Diabetes mellitus, type 2 ([facility]) Dystrophic nail Edema Effusion of ankle and foot joint Fracture of metatarsal, closed Fungal toenail infection Hyperlipidemia Hypertension Hypothyroidism 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 ([facility]) Non-pressure chronic ulcer of other part of left foot limited to breakdown of skin ([facility]) Non-pressure chronic ulcer of other part of right foot with fat layer exposed ([facility]) limited to breakdown of skin Obesity Overflow incontinence Peripheral neuropathy Pressure ulcer of right foot, stage 2 ([facility]) S/P foot surgery, right 12/09/2019 11/20/2019Right foot reconstruction surgery with external fixation 12/02/2019 Right foot I and D Sleep apnea, obstructive does not use CPAP Tibia/fibula fracture Past Surgical History: Procedure Laterality Date APPENDECTOMY ARTHRODESIS SUBTALAR Right 05/01/2020 Procedure: RIGHT ANKLE ARTHRODESIS, SUBTALAR ARTHRODESIS RIGHT ANKLE, Bone [place] Graft From RightFibula, Application of Splint; Surgeon: Alena Mora DPM; [facility]: [facility]; Service: Podiatry ARTHROPLASTY TOE Right 01/25/2019 Procedure: ARTHROPLASTY 2ND TOE RIGHT FOOT; Surgeon: Rosa M Robles DPM; Location: [facility] [place]; Service: Podiatry CABG 2017 CARDIAC SURGERY 2017 CABG tripe bypass CLOSED REDUCTION PERCUTANEOUS PINNING LOWER EXTREMITY N/A 12/02/2019 Procedure: ADJUSTMENT of EXTERNAL FIXATOR; Surgeon: Alena Mora DPM; Location: [facility]; Service: Podiatry CT COLONOSCOPY 02/24/[address] COLONOSCOPY 03/21/2023 CT COLONOSCOPY CYST REMOVED FROM CHEST N/A INCISION AND DRAINAGE FOOT AND ANKLE Right 12/02/2019 Procedure: RIGHT FOOT I&D; Surgeon: Alena Mora DPM; Location: [facility]; Service: Podiatry LIPOSUCTION METAL IN LEFT LEFT WRIST AND LEFT 5TH TOE Left ORIF FOOT FRACTURE Left 07/03/2013 5th metatarsal ORTHOPEDIC SURGERY WI AMPUTATION TOE INTERPHALANGEAL JOINT Left 06/29/2024 Procedure: left partial 2nd toe amputation; Surgeon: Alena Mora DPM; [facility]: [facility];Service: Podiatry RECONSTRUCTION FOOT CHARCOT Right 11/20/2019 Procedure: RIGHT FOOT RECONSTRUCTION WITH APPLICATION OF CIRCULAR STATIC EXTERNAL FIXATION; Surgeon: Alena Mora DPM; Location: [facility]; Service: Podiatry RT FOOT SURGERY Right [place] N/A Physical Examination: BP (!) 147/63 (BP Location: Left arm, Patient Position: Sitting, BP Cuff Size: Adult) Pulse (!) 38 Temp 97 F (36.1 C) (Oral) General Appearance: Alert, cooperative, no distress, appears stated age. Podiatric Exam Vascular: DP and PT pulses are palpable. Capillary refill time is less than 3 secs to distal digits. Skin temperature is warm to cool from proximal tibial tuberosity to distal digit. + 3 pitting edema noted to bilateral lower extremities, improved Neurological: Gross sensation is intact. Protective sensation is absent using the [place]if monofilament. Dermatologic: Patient's bilateral lower extremity wounds have epithelialized. An eschar is noted todistal tuft of the left great toe. There is a full-thickness ulcer noted to the dorsal right secondtoe PIPJ. No erythema, edema or any acute signs of infection. Musculoskeletal: Patient is able to wiggle digits. Ankle joint range of motion is intact. Compartments soft and compressible. No calf pain Diagnoses: No diagnosis found. Assessment/Plan: Patient was seen and evaluated. Discussed all clinical findings Patient has no open wounds or ulcerations to bilateral legs. His edema has improved significantly. However, patient has a full-thickness ulceration, previously an eschar/deep tissue injury, there isin need of excisional debridement to remove nonviable soft tissue and biofilm. This was performed using #15 blade down to and including subcutaneous tissue. Following debridement, applied Betadine wet -to-dry was applied to the left great toe. Patient is instructed to change dressing daily to the left great toe. Postdebridement wound measured 1. 2 x 1. 3 x 0.2 cm. Moreover, patient has a full-thickness ulcer noted to the distal aspect of the right second toe PIPJ that also requires excisional debridement remove nonviable soft tissue and biofilm. This was performed using a #15 blade down to and including subcutaneous tissue. Following debridement, applied Betadine wet-to-dry, 4 x 4, Kerlix. Postdebridement wound measured 0.4 x 0.5 x 0.2 cm. Patient is instructed to change dressing once every other day. All questions were answered to patient satisfaction. Patient understands to call with any questionsor concerns. Follow-up in 2 weeks for reevaluation. This note was partially created using voice recognition software and is inherently subject to errors including those of syntax and sound-alike substitutions which may escape proofreading. In such instances, original meaning may be extrapolated by contextual derivation. Alena Mora DPM, MS Podiatric Physician & Surgeon documented in this [id number] NoteEstablished Patient Visit Alena Mora DPM Patient Name: Dyllan Huertas. . Date of : 1960, 64 y.o.. Gender: male. Subjective: Patient is a pleasant 64-year-old male who presents to clinic for follow-up evaluation of left great toe pressure ulceration. Patient also has a small wound on his right second toe. No open wounds to bilateral legs. Patient states that he has been applying Medihoney as instructed. Patient denies any trauma or injury. Denies wearing any closed toe shoe. Denies fevers, chills, nausea, vomiting, chest pain, shortness of breath, or any other constitutional symptoms. 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 ([facility]) Non-pressure chronic ulcer of other part of left foot limited to breakdown of skin ([facility]) Non-pressure chronic ulcer of other part of right foot with fat layer exposed ([facility]) limited to breakdown of skin Obesity Overflow incontinence Peripheral neuropathy Pressure ulcer of right foot, stage 2 ([facility]) S/P foot surgery, right 12/09/2019 11/20/2019Right foot reconstruction surgery with external fixation 12/02/2019 Right foot I and D Sleep apnea, obstructive does not use CPAP Tibia/fibula fracture Past Surgical History: Procedure Laterality Date APPENDECTOMY ARTHRODESIS SUBTALAR Right 05/01/2020 Procedure: RIGHT ANKLE ARTHRODESIS, SUBTALAR ARTHRODESIS RIGHT ANKLE, Bone [place] Graft From Right Fibula, Application of Splint; Surgeon: Alena Mora DPM; [facility]: [facility]; Service: Podiatry ARTHROPLASTY TOE Right 01/25/2019 Procedure: ARTHROPLASTY 2ND TOE RIGHT FOOT; Surgeon: Rosa M Robles DPM; [facility] [facility]; Service: Podiatry CABG 2017 CARDIAC SURGERY 2017 CABG tripe bypass CLOSED REDUCTION PERCUTANEOUS PINNING LOWER EXTREMITY N/A 12/02/2019 Procedure: ADJUSTMENT of EXTERNAL FIXATOR; Surgeon: Alena Mora DPM; Location: [facility]; Service: Podiatry CT COLONOSCOPY 02/24/[address] COLONOSCOPY 03/21/2023 CT COLONOSCOPY CYST REMOVED FROM CHEST N/A INCISION AND DRAINAGE FOOT AND ANKLE Right 12/02/2019 Procedure: RIGHT FOOT I&D; Surgeon: Alena Mora DPM; Location: [facility]; Service: Podiatry LIPOSUCTION METAL IN LEFT LEFT WRIST AND LEFT 5TH TOE Left ORIF FOOT FRACTURE Left 07/03/2013 5th metatarsal ORTHOPEDIC SURGERY WI AMPUTATION TOE INTERPHALANGEAL JOINT Left 06/29/2024 Procedure: left partial 2nd toe amputation; Surgeon: Alena Mora DPM; [facility]: [facility]; Service: Podiatry RECONSTRUCTION FOOT CHARCOT Right 11/20/2019 Procedure: RIGHT FOOT RECONSTRUCTION WITH APPLICATION OF CIRCULAR STATIC EXTERNAL FIXATION; Surgeon: Alena Mora DPM; [facility]: [facility]; Service: Podiatry RT FOOT SURGERY Right SHARMILA JEONG N/A Physical Examination: BP 95/64 (BP Location: Right arm, Patient Position: Sitting, BP Cuff Size: Adult) Pulse 94 Temp 98 degrees F (36.7 degrees C) (Oral) General Appearance: Alert, cooperative, no distress, appears stated age. Podiatric Exam Vascular: DP and PT pulses are palpable. Capillary refill time is less than 3 secs to distal digits. Skin temperature is warm to cool from proximal tibial tuberosity to distal digit. + 3 pitting edema noted to bilateral lower extremities, improved Neurological: Gross sensation is intact. Protective sensation is absent using the [place] Asif monofilament. Dermatologic: Patient's bilateral lower extremity wounds have epithelialized. An eschar is noted to distal tuft of the left great toe. There is a full-thickness ulcer noted to the dorsal right second toe PIPJ. No erythema, edema or any acute signs of infection. Musculoskeletal: Patient is able to wiggle digits. Ankle joint range of motion is intact. Compartments soft and compressible. No calf pain Diagnoses: 1. Skin ulcer of second toe of right foot with fat layer exposed (HCC) 2. Pressure ulcer of toe of left foot, stage 1 3. Diabetic peripheral neuropathy (HCC) Assessment/Plan: Patient was seen and evaluated. Discussed all clinical findings Patient has no open wounds or ulcerations to bilateral legs. His edema has improved significantly. However, patient has a full-thickness ulceration, previously an eschar/deep tissue injury, there is in need of excisional debridement to remove nonviab (more content not included)...[facility]04-16-2025 History of Present illness Narrative* Alena Mora DPM - 01/17/2025 4:50 PM EDT Images from the original note were not included. Established Patient Visit Alena Mora DPM Patient Name: Dyllan Huertas. . Date of : 1960, 64 y.o.. Gender: male. Subjective: Patient is a pleasant 64-year-old male who presents to clinic for follow-up evaluation of left great toe pressure ulceration. Patient also has a small wound on his right second toe. No open wounds tobilateral legs. Patient states that he has been applying Medihoney as instructed. Patient denies any trauma or injury. Denies wearing any closed toe shoe. Denies fevers, chills, nausea, vomiting, chest pain, shortness of breath, or any other constitutional symptoms. Past Medical History: Diagnosis Date Acquired equinus deformity of right foot Acquired hammer toe of right foot Angina pectoris with documented spasm Calluse Cellulitis of left toe Charcot's joint, right ankle and foot Chronic osteomyelitis with draining sinus, right ankle and foot ([facility]) Complication of external fixation device with internal components Coronary artery disease Dehiscence of incision Diabetes mellitus, type 2 ([facility]) Dystrophic nail Edema Effusion of ankle and foot joint Fracture of metatarsal, closed Fungal toenail infection Hyperlipidemia Hypertension Hypothyroidism 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 ([facility]) Non-pressure chronic ulcer of other part of left foot limited to breakdown of skin ([facility]) Non-pressure chronic ulcer of other part of right foot with fat layer exposed ([facility]) limited to breakdown of skin Obesity Overflow incontinence Peripheral neuropathy Pressure ulcer of right foot, stage 2 ([facility]) S/P foot surgery, right 12/09/2019 11/20/2019Right foot reconstruction surgery with external fixation 12/02/2019 Right foot I and D Sleep apnea, obstructive does not use CPAP Tibia/fibula fracture Past Surgical History: Procedure Laterality Date APPENDECTOMY ARTHRODESIS SUBTALAR Right 05/01/2020 Procedure: RIGHT ANKLE ARTHRODESIS, SUBTALAR ARTHRODESIS RIGHT ANKLE, Bone [place] Graft From RightFibula, Application of Splint; Surgeon: Alena Mora DPM; [facility]: [facility]; Service: Podiatry ARTHROPLASTY TOE Right 01/25/2019 Procedure: ARTHROPLASTY 2ND TOE RIGHT FOOT; Surgeon: Rosa M Robles DPM; Location: [facility] [place]; Service: Podiatry CABG 2017 CARDIAC SURGERY 2017 CABG tripe bypass CLOSED REDUCTION PERCUTANEOUS PINNING LOWER EXTREMITY N/A 12/02/2019 Procedure: ADJUSTMENT of EXTERNAL FIXATOR; Surgeon: Alena Mora DPM; Location: [facility]; Service: Podiatry CT COLONOSCOPY 02/24/[address] COLONOSCOPY 03/21/2023 CT COLONOSCOPY CYST REMOVED FROM CHEST N/A INCISION AND DRAINAGE FOOT AND ANKLE Right 12/02/2019 Procedure: RIGHT FOOT I&D; Surgeon: Alena Mora DPM; [facility]: [facility]; Service: Podiatry LIPOSUCTION METAL IN LEFT LEFT WRIST AND LEFT 5TH TOE Left ORIF FOOT FRACTURE Left 07/03/2013 5th metatarsal ORTHOPEDIC SURGERY [place] AMPUTATION TOE INTERPHALANGEAL JOINT Left 06/29/2024 Procedure: left partial 2nd toe amputation; Surgeon: Alena Mora DPM; [facility]: [facility];Service: Podiatry RECONSTRUCTION FOOT CHARCOT Right 11/20/2019 Procedure: RIGHT FOOT RECONSTRUCTION WITH APPLICATION OF CIRCULAR STATIC EXTERNAL FIXATION; Surgeon: Alena Mora DPM; [facility]; Service: Podiatry RT FOOT SURGERY Right TUMMY TUCK N/A Physical Examination: BP 95/64 (BP Location: Right arm, Patient Position: Sitting, BP Cuff Size: Adult) Pulse 94 Temp98 F (36.7 C) (Oral) General Appearance: Alert, cooperative, no distress, appears stated age. Podiatric Exam Vascular: DP and PT pulses are palpable. Capillary refill time is less than 3 secs to distal digits. Skin temperature is warm to cool from proximal tibial tuberosity to distal digit. + 3 pitting edema noted to bilateral lower extremities, improved Neurological: Gross sensation is intact. Protective sensation is absent using the [place] Asif monofilament. Dermatologic: Patient's bilateral lower extremity wounds have epithelialized. An eschar is noted todistal tuft of the left great toe. There is a full-thickness ulcer noted to the dorsal right secondtoe PIPJ. No erythema, edema or any acute signs of infection. Musculoskeletal: Patient is able to wiggle digits. Ankle joint range of motion is intact. Compartments soft and compressible. No calf pain Diagnoses: 1. Skin ulcer of second toe of right foot with fat layer exposed (HCC) 2. Pressure ulcer of toe of left foot, stage 1 3. Diabetic peripheral neuropathy (HCC) Assessment/Plan: Patient was seen and evaluated. Discussed all clinical findings Patient has no open wounds or ulcerations to bilateral legs. His edema has improved significantly. However, patient has a full-thickness ulceration, previously an eschar/deep tissue injury, there isin need of excisional debridement to remove nonviable soft tissue and biofilm. This was performed using #15 blade down to and including subcutaneous tissue. Following debridement, applied Betadine wet -to-dry was applied to the left great toe. Patient is instructed to change dressing daily to the left great toe. Postdebridement wound measured 1. 2 x 1. 3 x 0.2 cm. Moreover, patient has a full-thickness ulcer noted to the distal aspect of the right second toe PIPJ that also requires excisional debridement remove nonviable soft tissue and biofilm. This was performed using a #15 blade down to and including subcutaneous tissue. Following debridement, applied Betadine wet-to-dry, 4 x 4, Kerlix. Postdebridement wound measured 0.4 x 0.5 x 0.2 cm. Patient is instructed to change dressing once every other day. All questions were answered to patient satisfaction. Patient understands to call with any questionsor concerns. Follow-up in 2 weeks for reevaluation. This note was partially created using voice recognition software and is inherently subject to errors including those of syntax and sound-alike substitutions which may escape proofreading. In such instances, original meaning may be extrapolated by contextual derivation. Alena Mora DPM, MS Podiatric Physician & Surgeon documented in this [id number] NoteEstablished Patient Visit Alena Mora DPM Patient Name: Dyllan Huertas. . Date of : 1960, 64 y.o.. Gender: male. Subjective: Patient is a pleasant 64-year-old male who presents to clinic for follow-up evaluation of left great toe pressure ulceration. Patient also has a small wound on his right second toe. No open wounds to bilateral legs. Patient states that he has been applying Medihoney as instructed. Patient denies any trauma or injury. Denies wearing any closed toe shoe. Denies fevers, chills, nausea, vomiting, chest pain, shortness of breath, or any other constitutional symptoms. Past Medical History: Diagnosis Date Acquired equinus deformity of right foot Acquired hammer toe of right foot Angina pectoris with documented spasm Calluse Cellulitis of left toe Charcot's joint, right ankle and foot Chronic osteomyelitis with draining sinus, right ankle and foot (HCC) Complication of external fixation device with internal components Coronary artery disease Dehiscence of incision Diabetes mellitus, type 2 ([facility]) Dystrophic nail Edema Effusion of ankle and foot joint Fracture of metatarsal, closed Fungal toenail infection Hyperlipidemia Hypertension Hypothyroidism 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) Non-pressure chronic ulcer of other part of left foot limited to breakdown of skin (HCC) Non-pressure chronic ulcer of other part of right foot with fat layer exposed ([facility]) limited to breakdown of skin Obesity Overflow incontinence Peripheral neuropathy Pressure ulcer of right foot, stage 2 ([facility]) S/P foot surgery, right 12/09/2019 11/20/2019Right foot reconstruction surgery with external fixation 12/02/2019 Right foot I and D Sleep apnea, obstructive does not use CPAP Tibia/fibula fracture Past Surgical History: Procedure Laterality Date APPENDECTOMY ARTHRODESIS SUBTALAR Right 05/01/2020 Procedure: RIGHT ANKLE ARTHRODESIS, SUBTALAR ARTHRODESIS RIGHT ANKLE, Bone [place] Graft From Right Fibula, Application of Splint; Surgeon: Alena Mora DPM; [facility]; Service: Podiatry ARTHROPLASTY TOE Right 01/25/2019 Procedure: ARTHROPLASTY 2ND TOE RIGHT FOOT; Surgeon: Rosa M Robles DPM; [facility]; Service: Podiatry CABG 2017 CARDIAC SURGERY 2017 CABG tripe bypass CLOSED REDUCTION PERCUTANEOUS PINNING LOWER EXTREMITY N/A 12/02/2019 Procedure: ADJUSTMENT of EXTERNAL FIXATOR; Surgeon: Alena Mora DPM; [facility]: [facility]; Service: Podiatry CT COLONOSCOPY 02/24/[address] COLONOSCOPY 03/21/2023 CT COLONOSCOPY CYST REMOVED FROM CHEST N/A INCISION AND DRAINAGE FOOT AND ANKLE Right 12/02/2019 Procedure: RIGHT FOOT I&D; Surgeon: Alena Mora DPM; [facility]; Service: Podiatry LIPOSUCTION METAL IN LEFT LEFT WRIST AND LEFT 5TH TOE Left ORIF FOOT FRACTURE Left 07/03/2013 5th metatarsal ORTHOPEDIC SURGERY WI AMPUTATION TOE INTERPHALANGEAL JOINT Left 06/29/2024 Procedure: left partial 2nd toe amputation; Surgeon: Alena Mora DPM; [facility]; Service: Podiatry RECONSTRUCTION FOOT CHARCOT Right 11/20/2019 Procedure: RIGHT FOOT RECONSTRUCTION WITH APPLICATION OF CIRCULAR STATIC EXTERNAL FIXATION; Surgeon: Alena Mora DPM; [facility]; Service: Podiatry RT FOOT SURGERY Right SHARMILA JEONG N/A Physical Examination: BP 136/64 (BP Location: Right arm, Patient Position: Sitting, BP Cuff Size: Adult) Pulse 61 Temp 98.1 degrees F (36.7 degrees C) (Oral) General Appearance: Alert, cooperative, no distress, appears stated age. Podiatric Exam Vascular: DP and PT pulses are palpable. Capillary refill time is less than 3 secs to distal digits. Skin temperature is warm to cool from proximal tibial tuberosity to distal digit. + 3 pitting edema noted to bilateral lower extremities, improved Neurological: Gross sensation is intact. Protective sensation is absent using the [place] Asif monofilament. Dermatologic: Patient's bilateral lower extremity wounds have epithelialized. An eschar is now noted to distal tuft of the left great toe. There is a full-thickness ulcer noted to the dorsal right second toe PIPJ. No erythema, edema or any acute signs of infection. Musculoskeletal: Patient is able to wiggle digits. Ankle joint range of motion is intact. Compartments soft and compressible. No calf pain Diagnoses: 1. Pressure ulcer of toe of left foot, stage 1 Wound Aerobic Culture Aerobic Culture 2. Skin ulcer of second toe of right foot with fat layer exposed (HCC) 3. Diabetic peripheral neuropathy (HCC) Assessment/Plan: Patient was seen and evaluated. Discussed all clinical findings Patient has no open wounds or ulcerations to bilateral legs. His edema has improved significantly. However, patient's prior deep tissue injury is now a pressure ulcer without distal tuft eschar. This is (more content not included)...[facility] 01-17-2025 History of Present illness Narrative* Alena Mora DPM - 01/17/2025 5:37 AM EDT Images from the original note were not included. Established Patient Visit Alena Mora DPM Patient Name: Dyllan Huertas. . Date of : 1960, 64 y.o.. Gender: male. Subjective: Patient is a pleasant 64-year-old male who presents to clinic for follow-up evaluation of left great toe pressure ulceration. Patient also has a small wound on his right second toe. No open wounds tobilateral legs. Patient states that he has been applying Medihoney as instructed. Patient denies any trauma or injury. Denies wearing any closed toe shoe. Denies fevers, chills, nausea, vomiting, chest pain, shortness of breath, or any other constitutional symptoms. Past Medical History: Diagnosis Date Acquired equinus deformity of right foot Acquired hammer toe of right foot Angina pectoris with documented spasm Calluse Cellulitis of left toe Charcot's joint, right ankle and foot Chronic osteomyelitis with draining sinus, right ankle and foot ([facility]) Complication of external fixation device with internal components Coronary artery disease Dehiscence of incision Diabetes mellitus, type 2 ([facility]) Dystrophic nail Edema Effusion of ankle and foot joint Fracture of metatarsal, closed Fungal toenail infection Hyperlipidemia Hypertension Hypothyroidism 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 ([facility]) Non-pressure chronic ulcer of other part of left foot limited to breakdown of skin ([facility]) Non-pressure chronic ulcer of other part of right foot with fat layer exposed ([facility]) limited to breakdown of skin Obesity Overflow incontinence Peripheral neuropathy Pressure ulcer of right foot, stage 2 ([facility]) S/P foot surgery, right 12/09/2019 11/20/2019Right foot reconstruction surgery with external fixation 12/02/2019 Right foot I and D Sleep apnea, obstructive does not use CPAP Tibia/fibula fracture Past Surgical History: Procedure Laterality Date APPENDECTOMY ARTHRODESIS SUBTALAR Right 05/01/2020 Procedure: RIGHT ANKLE ARTHRODESIS, SUBTALAR ARTHRODESIS RIGHT ANKLE, Bone [place] Graft From RightFibula, Application of Splint; Surgeon: Alena Mora DPM; [facility]: [facility]; Service: Podiatry ARTHROPLASTY TOE Right 01/25/2019 Procedure: ARTHROPLASTY 2ND TOE RIGHT FOOT; Surgeon: Rosa M Robles DPM; Location: [facility] [place] [facility]; Service: Podiatry CABG 2017 CARDIAC SURGERY 2017 CABG tripe bypass CLOSED REDUCTION PERCUTANEOUS PINNING LOWER EXTREMITY N/A 12/02/2019 Procedure: ADJUSTMENT of EXTERNAL FIXATOR; Surgeon: Alena Mora DPM; [facility]: [facility]; Service: Podiatry CT COLONOSCOPY 02/24/[address] COLONOSCOPY 03/21/2023 CT COLONOSCOPY CYST REMOVED FROM CHEST N/A INCISION AND DRAINAGE FOOT AND ANKLE Right 12/02/2019 Procedure: RIGHT FOOT I&D; Surgeon: Alena Mora DPM; [facility]: [facility]; Service: Podiatry LIPOSUCTION METAL IN LEFT LEFT WRIST AND LEFT 5TH TOE Left ORIF FOOT FRACTURE Left 07/03/2013 5th metatarsal ORTHOPEDIC SURGERY WI AMPUTATION TOE INTERPHALANGEAL JOINT Left 06/29/2024 Procedure: left partial 2nd toe amputation; Surgeon: Alena Mora DPM; [facility]: [facility];Service: Podiatry RECONSTRUCTION FOOT CHARCOT Right 11/20/2019 Procedure: RIGHT FOOT RECONSTRUCTION WITH APPLICATION OF CIRCULAR STATIC EXTERNAL FIXATION; Surgeon: Alena Mora DPM; [facility]; Service: Podiatry RT FOOT SURGERY Right TUMMY TUCK N/A Physical Examination: BP 136/64 (BP Location: Right arm, Patient Position: Sitting, BP Cuff Size: Adult) Pulse 61 Temp 98.1 F (36.7 C) (Oral) General Appearance: Alert, cooperative, no distress, appears stated age. Podiatric Exam Vascular: DP and PT pulses are palpable. Capillary refill time is less than 3 secs to distal digits. Skin temperature is warm to cool from proximal tibial tuberosity to distal digit. + 3 pitting edema noted to bilateral lower extremities, improved Neurological: Gross sensation is intact. Protective sensation is absent using the [place] Asif monofilament. Dermatologic: Patient's bilateral lower extremity wounds have epithelialized. An eschar is now noted to distal tuft of the left great toe. There is a full- thickness ulcer noted to the dorsal right second toe PIPJ. No erythema, edema or any acute signs of infection. Musculoskeletal: Patient is able to wiggle digits. Ankle joint range of motion is intact. Compartments soft and compressible. No calf pain Diagnoses: 1. Pressure ulcer of toe of left foot, stage 1 Wound Aerobic Culture Aerobic Culture 2. Skin ulcer of second toe of right foot with fat layer exposed (HCC) 3. Diabetic peripheral neuropathy (HCC) Assessment/Plan: Patient was seen and evaluated. Discussed all clinical findings Patient has no open wounds or ulcerations to bilateral legs. His edema has improved significantly. However, patient's prior deep tissue injury is now a pressure ulcer without distal tuft eschar. This is in need of excisional debridement to remove nonviable soft tissue and biofilm. This was performed using #15 blade down to and including subcutaneous tissue. Following debridement, a wound swab culture was obtained and sent to microbiology for culture sensitivity. Then, patient Betadine wet-to-dry was applied to the left great toe. Patient is instructed to change dressing daily to the left great toe. Postdebridement wound measured 1.5 x 1.5 x 0.2 cm. Moreover, patient has a full-thickness ulcer noted to the distal aspect of the right second toe PIPJ that also requires excisional debridement remove nonviable soft tissue and biofilm. This was performed using a #15 blade down to and including subcutaneous tissue. Following debridement, applied silver cell, 4 x 4, Kerlix. Postdebridement wound measured 0.5 x 0.5 x 0.2 cm. Patient is instructed to change dressing once every other day. All questions were answered to patient satisfaction. Patient understands to call with any questionsor concerns. Follow-up in 1 week for reevaluation. This note was partially created using voice recognition software and is inherently subject to errors including those of syntax and sound-alike substitutions which may escape proofreading. In such instances, original meaning may be extrapolated by contextual derivation. Alena Mora DPM, MS Podiatric Physician & Surgeon documented in this [id number] History of Present illness Narrative* Bhakti Chambers PA-C - 01/11/2025 9:40 AM EDT Subjective Patient ID: Dyllan Huertas is a 64 y.o. male who presents for New Patient Visit (New pt) HPI Est as new patient LABS Prior A1c was high in nov and started on jardiance - repeat A1c will be due in February so will order gen updated labs to be done in February/March Med check Cardio - dr dailey (typically states prior PCP has been filling tho) CAD/ CHF - given bradycardia - suggest we dec coreg to 1/2 tab po bid and pt to monitor pulse and call if concerns - follow up with cardio is set in near future - he denies symptoms or concerns Iron - taking OTC 1 tab 3x/week LE edema - bumex - on 0.5 mg daily HTN- Hair - on finasteride and doing 1/2 tab M/W/F PBH - tamsulosin Stage 3 renal dz - will need to monitor and discussed concern with some meds DM Jardiance Metformin 70/30- 30 AM and 30 PM Novolin R - taking 20 tid Charcot -hx of amputation - following with wound/pod Neck pain x >6 months Some days worse than others Feels stiff and limited ROM No known injury Taking tylenol 2 AM, using roller topical meds Discussed xray, PT, chiro treatment opt Preventative testing PSA Colon - february 2023 - 4 mm polyp- repeat in 5 years - dr beaulieu Fall - NEG January 2025 Phq2 - NEG January 2025 Patient Active Problem List Diagnosis Charcot foot due to diabetes mellitus (Multi) Benign prostatic hyperplasia with urinary obstruction DM (diabetes mellitus), type 2 with neurological complications Hypothyroidism Hyperlipidemia Obesity, morbid (Multi) Hypertension Review of Systems Constitutional: Negative for chills, fatigue and fever. HENT: Negative for congestion, rhinorrhea, sinus pain, sore throat and tinnitus. Eyes: Negative for discharge, redness and visual disturbance. Respiratory: Negative for cough, chest tightness, shortness of breath and wheezing. Cardiovascular: Negative for chest pain, palpitations and leg swelling. Gastrointestinal: Negative for abdominal pain, constipation, diarrhea, nausea and vomiting. Endocrine: Negative for cold intolerance and heat intolerance. Genitourinary: Negative for flank pain, frequency and urgency. Musculoskeletal: Positive for arthralgias. Negative for back pain, gait problem and neck pain. Skin: Negative for rash and wound. Neurological: Positive for numbness. Negative for dizziness, tremors, syncope and headaches. Hematological: Does not bruise/bleed easily. Psychiatric/Behavioral: Negative for confusion, sleep disturbance and suicidal ideas. Past Medical History: Diagnosis Date Diabetes mellitus (Multi) Heart disease Hypertension Past Surgical History: Procedure Laterality Date OTHER SURGICAL HISTORY 01/03/2020 Coronary artery bypass graft OTHER SURGICAL HISTORY 01/03/2020 Foot surgery OTHER SURGICAL HISTORY 01/03/2020 Liposuction OTHER SURGICAL HISTORY 01/03/2020 Abdominoplasty OTHER SURGICAL HISTORY 01/03/2020 Wrist surgery OTHER SURGICAL HISTORY 01/03/2020 Appendectomy OTHER SURGICAL HISTORY 01/17/2020 Foot surgery OTHER SURGICAL HISTORY Left 06/19/2024 second toe partial amputation Family History Problem Relation Name Age of Onset Other (dmii) Mother Heart disease Mother 57 Other (myocardial infarction) Father 60 - 69 Other (DMII) Sister Hypertension Other Kidney disease Other Diabetes Other Heart disease Other Social History Tobacco Use Smoking status: Never Smokeless tobacco: Never Vaping Use Vaping status: Never Used Substance Use Topics Alcohol use: Not Currently Drug use: Never No Known Allergies Current Outpatient Medications Medication Sig Dispense Refill aspirin 81 mg EC tablet Take 1 tablet (81 mg) by mouth once daily. blood sugar diagnostic (True Metrix Glucose Test Strip) strip 1 strip once daily. 100 strip 3 bumetanide (Bumex) 0.5 mg tablet Take 1 tablet (0.5 mg) by mouth once daily. 90 tablet 3 calcium carbonate/vitamin D3 (CALCIUM 600 + D,3, ORAL) Take 1 tablet by mouth 2 times a day. carvedilol (Coreg) 25 mg tablet Take 1 tablet (25 mg) by mouth 2 times daily (morning and late afternoon). 180 tablet 3 cephalexin (Keflex) 500 mg capsule Take 1 capsule (500 mg) by mouth every 12 hours. chlorthalidone (Hygroton) 25 mg tablet Take 0.5 tablets (12.5 mg) by mouth once daily. 45 tablet 3 cholecalciferol (Vitamin D3) 50 MCG (2000 UT) tablet Take 1 tablet (50 mcg) by mouth once daily. docusate sodium (Stool Softener) 100 mg tablet Take 1 tablet (100 mg) by mouth once daily. doxycycline (Vibra-Tabs) 100 mg tablet Take 1 tablet (100 mg) by mouth every 12 hours. empagliflozin (Jardiance) 25 mg Take 1 tablet (25 mg) by mouth once daily. 100 tablet 3 fenofibrate (Triglide) 160 mg tablet Take 1 tablet (160 mg) by mouth once daily. 90 tablet 3 ferrous sulfate, 325 mg ferrous sulfate, tablet Take 1 tablet (325 mg) by mouth 3 times a week. finasteride (Proscar) 5 mg tablet Take 1 tablet (5 mg) by mouth once daily. 90 tablet 3 gabapentin (Neurontin) 300 mg capsule Take 1 capsule (300 mg) by mouth once daily at bedtime. 90 capsule 3 insulin NPH and regular human (NovoLIN 70/30 U-100 Insulin) 100 unit/mL (70-30) injection Inject under the skin. INJECT 46 UNITS IN THE MORNING AND 30 UNITS AT BEDTIME insulin regular (NovoLIN R Regular U100 Insulin) 100 unit/mL injection INJECT 4- 20 UNITS WITH MEALSUSING A SLIDING SCALE; INJECT NO MORE THAN 60 UNITS DAILY lancets (TRUEplus Lancets) 30 gauge misc 1 Lancet once daily. 100 each 3 levothyroxine (Synthroid, Levoxyl) 100 mcg tablet Take 1 tablet (100 mcg) by mouth once daily in the morning. Take before meals. 90 tablet 3 lisinopril 20 mg tablet Take 1 tablet (20 mg) by mouth once daily. 90 tablet 3 magnesium oxide (Mag-Ox) 400 mg tablet 1 tablet (400 mg) once daily. melatonin 10 mg tablet Take 1 tablet (10 mg) by mouth once daily at bedtime. metFORMIN XR 500 mg 24 hr tablet Take 2 tablets (1,000 mg) by mouth 2 times daily (morning and lateafternoon). 336 tablet 3 multivitamin tablet Take 1 tablet by mouth once daily. omega 0-ace-cid-fish oil (Fish OiL) 1,000 mg (120 mg-180 mg) capsule Take by mouth. rosuvastatin (Crestor) 20 mg tablet Take 1 tablet (20 mg) by mouth once daily. 90 tablet 3 tamsulosin (Flomax) 0.4 mg 24 hr capsule Take 1 capsule (0.4 mg) by mouth once daily. 90 capsule 3 furosemide (Lasix) 20 mg tablet Take 1 tablet (20 mg) by mouth once daily. (Patient not taking: Reported on 01/11/2025) 90 tablet 0 lisinopril 20 mg tablet Take 1 tablet (20 mg) by mouth once daily for 10 days. 10 tablet 0 mupirocin (Bactroban) 2 % ointment APPLY OINTMENT TOPICALLY THREE TIMES DAILY (Patient not taking: Reported on 01/11/2025) No current facility-administered medications for this visit. Objective BP 131/84 Pulse (!) 40 Ht 1.803 m (5' 11) Wt 122 kg (269 lb 9.6 oz) SpO2 96% BMI 37.60 kg/m Physical Exam Vitals reviewed. Constitutional: Appearance: Normal appearance. He is obese. HENT: Head: Normocephalic. Right Ear: External ear normal. Left Ear: External ear normal. Nose: Nose normal. No congestion or rhinorrhea. Mouth/Throat: Mouth: Mucous membranes are moist. Eyes: Extraocular Movements: Extraocular movements intact. Conjunctiva/sclera: Conjunctivae normal. Pupils: Pupils are equal, round, and reactive to light. Cardiovascular: Rate and Rhythm: Normal rate and regular rhythm. Pulses: Normal pulses. Pulmonary: Effort: Pulmonary effort is normal. Breath sounds: Normal breath sounds. Abdominal: General: Bowel sounds are normal. Palpations: Abdomen is soft. Tenderness: There is no abdominal tenderness. There is no right CVA tenderness or left CVA tenderness. Musculoskeletal: General: No tenderness. Normal range of motion. Cervical back: Normal range of motion and neck supple. No tenderness. Comments: Feet wrapped and wearing boot bilat Skin: General: Skin is warm and dry. Neurological: General: No focal deficit present. Mental Status: He is alert and oriented to person, place, and time. Psychiatric: Mood and Affect: Mood normal. Behavior: Behavior normal. Testing Reviewed old notes on file Reviewed old labs and testing on file In office EKG - sinus rhythm with 1st degree av block with premature atrial complexes in a pattern of bigeminy Impression MDM 1) COMPLEXITY: MORE THAN 1 STABLE CHRONIC CONDITION ADDRESSED 2)DATA: TESTS INTERPRETED AND OR ORDERED, TOOK INDEPENDENT HISTORY OR RECORDS REVIEWED 3)RISK: MODERATE RISK DUE TO NATURE OF MEDICAL CONDITIONS/COMORBIDITY OR MEDICATIONS ORDERED OR SURGICAL OR PROCEDURE REFERRAL, . Reviewed labs and Testing on file Patient to follow diet low in cholesterol, fat, and sodium. Patient is advised to increase Exercise. Patient is recommended to lose weight. Reviewed Meds and discussed common side effects Continue as directed Patient is strongly advised to be compliant with recommendations. Return to Clinic sooner if needed. Patient denies further questions/concerns at this time Assessment/Plan Problem List Items Addressed This Visit ICD-10-CM Charcot foot due to diabetes mellitus (Multi) E11.610 DM (diabetes mellitus), type 2 with neurological complications E11.49 Relevant Medications FreeStyle Justin 3 Sensor device FreeStyle Justin 3 [place] misc Other Relevant Orders Albumin-Creatinine Ratio, Urine Random CBC and Auto Differential Comprehensive Metabolic Panel Hemoglobin A1C Magnesium Hypothyroidism E03.9 Relevant Orders Thyroid Stimulating Hormone Thyroxine, Free Hyperlipidemia E78.5 Class 2 severe obesity due to excess calories with serious comorbidity and body mass index (BMI) of37.0 to 37.9 in adult E66.812, E66.01, Z68.37 Hypertension associated with diabetes E11.59, I15.2 AV block, 1st degree I44.0 Acute on chronic combined systolic and diastolic heart failure I50.43 Other Visit Diagnoses Codes Encounter to establish care with new provider - Primary Z76.89 Screening PSA (prostate specific antigen) Z12.5 Relevant Orders Prostate Specific Antigen, Screen Vitamin D deficiency E55.9 Relevant Orders Vitamin D 25-Hydroxy,Total (for eval of Vitamin D levels) Iron deficiency anemia, unspecified iron deficiency anemia type D50.9 Relevant Orders Iron and TIBC Ferritin Cervicalgia M54.2 Relevant Orders XR cervical spine 2-3 views Sinus bradycardia R00.1 Relevant Orders ECG 12 Lead (Completed) Coronary artery disease involving 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 I25.810 FU in 1-2 mo with labs at [facility] and med [place] / medicare wellness [facility] Work Phone: [phone] NoteEstablished Patient Visit Alena Mora DPM Patient Name: Dyllan Huertas. . Date of : 1960, 64 y.o.. Gender: male. Subjective: Patient is a pleasant 64-year-old male who presents to clinic for follow-up evaluation of bilateral lower extremity edema and open wounds. Patient report that he has been applying Betadine wet-to-dry to the wounds and dressing it with Kerlix and Zechariah bandage. Reports improvement. Stated all of his wounds on his legs have healed. However, he did develop a new blister at the tip of his left great toe. Patient denies any trauma or injury. Denies wearing any closed toe shoe. Denies fevers, chills, nausea, vomiting, chest pain, shortness of breath, or any other constitutional symptoms. Past Medical History: Diagnosis Date Acquired equinus deformity of right foot Acquired hammer toe of right foot Angina pectoris with documented spasm Calluse Cellulitis of left toe Charcot's joint, right ankle and foot Chronic osteomyelitis with draining sinus, right ankle and foot (HCC) Complication of external fixation device with internal components (HCC) Coronary artery disease Dehiscence of incision Diabetes mellitus, type 2 ([facility]) Dystrophic nail Edema Effusion of ankle and foot joint Fracture of metatarsal, closed Fungal toenail infection Hyperlipidemia Hypertension Hypothyroidism 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 ([facility]) Non-pressure chronic ulcer of other part of left foot limited to breakdown of skin ([facility]) Non-pressure chronic ulcer of other part of right foot with fat layer exposed ([facility]) limited to breakdown of skin Obesity Overflow incontinence Peripheral neuropathy Pressure ulcer of right foot, stage 2 ([facility]) S/P foot surgery, right 12/09/2019 11/20/2019Right foot reconstruction surgery with external fixation 12/02/2019 Right foot I and D Sleep apnea, obstructive does not use CPAP Tibia/fibula fracture Past Surgical History: Procedure Laterality Date APPENDECTOMY ARTHRODESIS SUBTALAR Right 05/01/2020 Procedure: RIGHT ANKLE ARTHRODESIS, SUBTALAR ARTHRODESIS RIGHT ANKLE, Bone [place] Graft From Right Fibula, Application of Splint; Surgeon: Alena Mora DPM; Location: [facility]; Service: Podiatry ARTHROPLASTY TOE Right 01/25/2019 Procedure: ARTHROPLASTY 2ND TOE RIGHT FOOT; Surgeon: Rosa M Robles DPM; [place] [facility]; Service: Podiatry CABG 2017 CARDIAC SURGERY 2017 CABG tripe bypass CLOSED REDUCTION PERCUTANEOUS PINNING LOWER EXTREMITY N/A 12/02/2019 Procedure: ADJUSTMENT of EXTERNAL FIXATOR; Surgeon: Alena Mora DPM; Location: [facility]; Service: Podiatry CT COLONOSCOPY 02/24/[address] COLONOSCOPY 03/21/2023 CT COLONOSCOPY CYST REMOVED FROM CHEST N/A INCISION AND DRAINAGE FOOT AND ANKLE Right 12/02/2019 Procedure: RIGHT FOOT I&D; Surgeon: Alena Mora DPM; Location: [facility]; Service: Podiatry LIPOSUCTION METAL IN LEFT LEFT WRIST AND LEFT 5TH TOE Left ORIF FOOT FRACTURE Left 07/03/2013 5th metatarsal ORTHOPEDIC SURGERY [place] AMPUTATION TOE INTERPHALANGEAL JOINT Left 06/29/2024 Procedure: left partial 2nd toe amputation; Surgeon: Alena Mora DPM; Location: [facility]; Service: Podiatry RECONSTRUCTION FOOT CHARCOT Right 11/20/2019 Procedure: RIGHT FOOT RECONSTRUCTION WITH APPLICATION OF CIRCULAR STATIC EXTERNAL FIXATION; Surgeon: Alena Mora DPM; Location: [facility]; Service: Podiatry RT FOOT SURGERY Right [place] N/A Physical Examination: BP (!) 140/63 (BP Location: Right arm, Patient Position: Sitting, BP Cuff Size: Adult) Pulse (!) 41 Temp 97.6 degrees F (36.4 degrees C) (Oral) General Appearance: Alert, cooperative, no distress, appears stated age. Podiatric Exam Vascular: DP and PT pulses are palpable. Capillary refill time is less than 3 secs to distal digits. Skin temperature is warm to cool from proximal tibial tuberosity to distal digit. + 3 pitting edema noted to bilateral lower extremities, improved minimally Neurological: Gross sensation is intact. Protective sensation is absent using the [place] Asif monofilament. Dermatologic: Patient's bilateral lower extremity wounds have epithelialized. A deep tissue injury is noted at the distal tuft of the left great toe. No surrounding erythema, edema or any acute signs of fracture. Musculoskeletal: Patient is able to wiggle digits. Ankle joint range of motion is intact. Compartments soft and compressible. No calf pain Diagnoses: 1. Pressure ulcer of toe of left foot, stage 1 2. Diabetic peripheral neuropathy (HCC) Assessment/Plan: Patient was seen and evaluated. Discussed all clinical findings Patient's multiple wounds to bilateral legs have epithelialized. However, patient has developed a new pressure injury wound at the distal tuft of the left great toe. Discussed with patient that this can worsen and become a fu (more content not included)...[facility]03-24-2025 History of Present illness Narrative* Alena Mora DPM - 12/25/2024 2:56 PM EDT Images from the original note were not included. Established Patient Visit Alena Mora DPM Patient Name: Dyllan Huertas. . Date of : 1960, 64 y.o.. Gender: male. Subjective: Patient is a pleasant 64-year-old male who presents to clinic for follow-up evaluation of bilaterallower extremity edema and open wounds. Patient report that he has been applying Betadine [id number] the wounds and dressing it with Kerlix and Zechariah bandage. Reports improvement. Stated all of his wounds on his legs have healed. However, he did develop a new blister at the tip of his left great toe. Patient denies any trauma or injury. Denies wearing any closed toe shoe. Denies fevers, chills, nausea, vomiting, chest pain, shortness of breath, or any other constitutional symptoms. Past Medical History: Diagnosis Date Acquired equinus deformity of right foot Acquired hammer toe of right foot Angina pectoris with documented spasm Calluse Cellulitis of left toe Charcot's joint, right ankle and foot Chronic osteomyelitis with draining sinus, right ankle and foot ([facility]) Complication of external fixation device with internal components ([facility]) Coronary artery disease Dehiscence of incision Diabetes mellitus, type 2 ([facility]) Dystrophic nail Edema Effusion of ankle and foot joint Fracture of metatarsal, closed Fungal toenail infection Hyperlipidemia Hypertension Hypothyroidism 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 ([facility]) Non-pressure chronic ulcer of other part of left foot limited to breakdown of skin ([facility]) Non-pressure chronic ulcer of other part of right foot with fat layer exposed ([facility]) limited to breakdown of skin Obesity Overflow incontinence Peripheral neuropathy Pressure ulcer of right foot, stage 2 ([facility]) S/P foot surgery, right 12/09/2019 11/20/2019Right foot reconstruction surgery with external fixation 12/02/2019 Right foot I and D Sleep apnea, obstructive does not use CPAP Tibia/fibula fracture Past Surgical History: Procedure Laterality Date APPENDECTOMY ARTHRODESIS SUBTALAR Right 05/01/2020 Procedure: RIGHT ANKLE ARTHRODESIS, SUBTALAR ARTHRODESIS RIGHT ANKLE, Bone [place] Graft From RightFibula, Application of Splint; Surgeon: Alena Mora DPM; Location: [facility]; Service: Podiatry ARTHROPLASTY TOE Right 01/25/2019 Procedure: ARTHROPLASTY 2ND TOE RIGHT FOOT; Surgeon: Rosa M Robles DPM; [place]; Service: Podiatry CABG 2017 CARDIAC SURGERY 2017 CABG tripe bypass CLOSED REDUCTION PERCUTANEOUS PINNING LOWER EXTREMITY N/A 12/02/2019 Procedure: ADJUSTMENT of EXTERNAL FIXATOR; Surgeon: Alena Mora DPM; Location: [facility]; Service: Podiatry CT COLONOSCOPY 02/24/[address] COLONOSCOPY 03/21/2023 CT COLONOSCOPY CYST REMOVED FROM CHEST N/A INCISION AND DRAINAGE FOOT AND ANKLE Right 12/02/2019 Procedure: RIGHT FOOT I&D; Surgeon: Alena Mora DPM; Location: [facility]; Service: Podiatry LIPOSUCTION METAL IN LEFT LEFT WRIST AND LEFT 5TH TOE Left ORIF FOOT FRACTURE Left 07/03/2013 5th metatarsal ORTHOPEDIC SURGERY [place] AMPUTATION TOE INTERPHALANGEAL JOINT Left 06/29/2024 Procedure: left partial 2nd toe amputation; Surgeon: Alena Mora DPM; Location: [facility];Service: Podiatry RECONSTRUCTION FOOT CHARCOT Right 11/20/2019 Procedure: RIGHT FOOT RECONSTRUCTION WITH APPLICATION OF CIRCULAR STATIC EXTERNAL FIXATION; Surgeon: Alena Mora DPM; Location: [facility]; Service: Podiatry RT FOOT SURGERY Right [place] N/A Physical Examination: BP (!) 140/63 (BP Location: Right arm, Patient Position: Sitting, BP Cuff Size: Adult) Pulse (!) 41 Temp 97.6 F (36.4 C) (Oral) General Appearance: Alert, cooperative, no distress, appears stated age. Podiatric Exam Vascular: DP and PT pulses are palpable. Capillary refill time is less than 3 secs to distal digits. Skin temperature is warm to cool from proximal tibial tuberosity to distal digit. + 3 pitting edema noted to bilateral lower extremities, improved minimally Neurological: Gross sensation is intact. Protective sensation is absent using the [place] Asif monofilament. Dermatologic: Patient's bilateral lower extremity wounds have epithelialized. A deep tissue injury is noted at the distal tuft of the left great toe. No surrounding erythema, edema or any acute signsof fracture. Musculoskeletal: Patient is able to wiggle digits. Ankle joint range of motion is intact. Compartments soft and compressible. No calf pain Diagnoses: 1. Pressure ulcer of toe of left foot, stage 1 2. Diabetic peripheral neuropathy (HCC) Assessment/Plan: Patient was seen and evaluated. Discussed all clinical findings Patient's multiple wounds to bilateral legs have epithelialized. However, patient has developed a new pressure injury wound at the distal tuft of the left great toe. Discussed with patient that this can worsen and become a full- thickness ulceration. At this time, no need for excisional debridement.Applied Medihoney to the distal tuft of the left great toe. Patient is to then apply 4 x 4's, Kerlix. Patient is to continue Zechariah compression to bilateral legs for edema control to prevent reulceration/blistering. Patient is to continue applying Medihoney once daily All questions were answered to patient satisfaction. Patient understands to call with any questionsor concerns. Follow-up in 2 weeks for reevaluation. This note was partially created using voice recognition software and is inherently subject to errors including those of syntax and sound-alike substitutions which may escape proofreading. In such instances, original meaning may be extrapolated by contextual derivation. Alena Mora DPM, MS Podiatric Physician & Surgeon documented in this [id number] NoteEstablished Patient Visit Alena Mora DPM Patient Name: Dyllan Huertas. . Date of : 1960, 64 y.o.. Gender: male. Subjective: Patient is a pleasant 63-year-old male who presents to clinic for follow-up evaluation of bilateral lower extremity edema and open wounds. Patient report that he has been applying Betadine wet-to-dry to the wounds and dressing it with Kerlix and Zechariah bandage. Reports improvement. Denies any new activity or trauma. Denies fevers, chills, nausea, vomiting, chest pain, shortness of breath, or any other constitutional symptoms. Past Medical History: Diagnosis Date Acquired equinus deformity of right foot Acquired hammer toe of right foot Angina pectoris with documented spasm Calluse Cellulitis of left toe Charcot's joint, right ankle and foot Chronic osteomyelitis with draining sinus, right ankle and foot ([facility]) Complication of external fixation device with internal components ([facility]) Coronary artery disease Dehiscence of incision Diabetes mellitus, type 2 ([facility]) Dystrophic nail Edema Effusion of ankle and foot joint Fracture of metatarsal, closed Fungal toenail infection Hyperlipidemia Hypertension Hypothyroidism 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 ([facility]) Non-pressure chronic ulcer of other part of left foot limited to breakdown of skin ([facility]) Non-pressure chronic ulcer of other part of right foot with fat layer exposed ([facility]) limited to breakdown of skin Obesity Overflow incontinence Peripheral neuropathy Pressure ulcer of right foot, stage 2 ([facility]) S/P foot surgery, right 12/09/2019 11/20/2019Right foot reconstruction surgery with external fixation 12/02/2019 Right foot I and D Sleep apnea, obstructive does not use CPAP Tibia/fibula fracture Past Surgical History: Procedure Laterality Date APPENDECTOMY ARTHRODESIS SUBTALAR Right 05/01/2020 Procedure: RIGHT ANKLE ARTHRODESIS, SUBTALAR ARTHRODESIS RIGHT ANKLE, Bone [place] Graft From Right Fibula, Application of Splint; Surgeon: Alena Mora DPM; Location: [facility]; Service: Podiatry ARTHROPLASTY TOE Right 01/25/2019 Procedure: ARTHROPLASTY 2ND TOE RIGHT FOOT; Surgeon: Rosa M Robles DPM; [place] [facility]; Service: Podiatry CABG 2017 CARDIAC SURGERY 2017 CABG tripe bypass CLOSED REDUCTION PERCUTANEOUS PINNING LOWER EXTREMITY N/A 12/02/2019 Procedure: ADJUSTMENT of EXTERNAL FIXATOR; Surgeon: Alena Mora DPM; Location: [facility]; Service: Podiatry CT COLONOSCOPY 02/24/[address] COLONOSCOPY 03/21/2023 CT COLONOSCOPY CYST REMOVED FROM CHEST N/A INCISION AND DRAINAGE FOOT AND ANKLE Right 12/02/2019 Procedure: RIGHT FOOT I&D; Surgeon: Alena Mora DPM; Location: [facility]; Service: Podiatry LIPOSUCTION METAL IN LEFT LEFT WRIST AND LEFT 5TH TOE Left ORIF FOOT FRACTURE Left 07/03/2013 5th metatarsal ORTHOPEDIC SURGERY [place] AMPUTATION TOE INTERPHALANGEAL JOINT Left 06/29/2024 Procedure: left partial 2nd toe amputation; Surgeon: Alena Mora DPM; Location: [facility]; Service: Podiatry RECONSTRUCTION FOOT CHARCOT Right 11/20/2019 Procedure: RIGHT FOOT RECONSTRUCTION WITH APPLICATION OF CIRCULAR STATIC EXTERNAL FIXATION; Surgeon: Alena Mora DPM; Location: [facility]; Service: Podiatry RT FOOT SURGERY Right [facility] N/A Physical Examination: BP (!) 141/77 (BP Location: Right arm, Patient Position: Sitting, BP Cuff Size: X-large Adult) Pulse (!) 56 Temp 97.5 degrees F (36.4 degrees C) (Temporal) General Appearance: Alert, cooperative, no distress, appears stated age. Podiatric Exam Vascular: DP and PT pulses are palpable. Capillary refill time is less than 3 secs to distal digits. Skin temperature is warm to cool from proximal tibial tuberosity to distal digit. + 3 pitting edema noted to bilateral lower extremities, improved minimally Neurological: Gross sensation is intact. Protective sensation is absent using the [place] Asif monofilament. Dermatologic: Patient has bilateral lower extremity wounds scattered to right leg with serous drainage, improved since the last clinic visit. No appreciable wound on the left leg. Musculoskeletal: Patient is able to wiggle digits. Ankle joint range of motion is intact. Compartments soft and compressible. No calf pain Diagnoses: 1. Skin ulcer of right lower leg with fat layer exposed (HCC) 2. Skin ulcer of left lower leg with fat layer exposed (HCC) 3. Bilateral lower extremity edema Assessment/Plan: Patient was seen and evaluated. Discussed all clinical findings Patient has multiple wounds and edema to the bilateral legs. This is improved since last clinic visit. At this time, no need for excisional debridement of wounds. Instructed the patient to continue to wash his feet with soap and water. Patient may stop applying Betadine wet to dry it and to only apply Adaptic and Kb to open wou (more content not included)...[facility] 12-10-2024 History of Present illness Narrative* Alena Mora DPM - 12/10/2024 10:27 PM EDT Images from the original note were not included. Established Patient Visit Alena Mora DPM Patient Name: Dyllan Huertas. . Date of : 1960, 64 y.o.. Gender: male. Subjective: Patient is a pleasant 63-year-old male who presents to clinic for follow-up evaluation of bilaterallower extremity edema and open wounds. Patient report that he has been applying Betadine [id number] the wounds and dressing it with Kerlix and Zechariah bandage. Reports improvement. Denies any new activity or trauma. Denies fevers, chills, nausea, vomiting, chest pain, shortness of breath, or any other constitutional symptoms. Past Medical History: Diagnosis Date Acquired equinus deformity of right foot Acquired hammer toe of right foot Angina pectoris with documented spasm Calluse Cellulitis of left toe Charcot's joint, right ankle and foot Chronic osteomyelitis with draining sinus, right ankle and foot ([facility]) Complication of external fixation device with internal components ([facility]) Coronary artery disease Dehiscence of incision Diabetes mellitus, type 2 ([facility]) Dystrophic nail Edema Effusion of ankle and foot joint Fracture of metatarsal, closed Fungal toenail infection Hyperlipidemia Hypertension Hypothyroidism 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 ([facility]) Non-pressure chronic ulcer of other part of left foot limited to breakdown of skin ([facility]) Non-pressure chronic ulcer of other part of right foot with fat layer exposed ([facility]) limited to breakdown of skin Obesity Overflow incontinence Peripheral neuropathy Pressure ulcer of right foot, stage 2 ([facility]) S/P foot surgery, right 12/09/2019 11/20/2019Right foot reconstruction surgery with external fixation 12/02/2019 Right foot I and D Sleep apnea, obstructive does not use CPAP Tibia/fibula fracture Past Surgical History: Procedure Laterality Date APPENDECTOMY ARTHRODESIS SUBTALAR Right 05/01/2020 Procedure: RIGHT ANKLE ARTHRODESIS, SUBTALAR ARTHRODESIS RIGHT ANKLE, Bone [place] Graft From RightFibula, Application of Splint; Surgeon: Alena Mora DPM; [facility]: [facility]; Service: Podiatry ARTHROPLASTY TOE Right 01/25/2019 Procedure: ARTHROPLASTY 2ND TOE RIGHT FOOT; Surgeon: Rosa M Robles DPM; [facility]; Service: Podiatry CABG 2017 CARDIAC SURGERY 2017 CABG tripe bypass CLOSED REDUCTION PERCUTANEOUS PINNING LOWER EXTREMITY N/A 12/02/2019 Procedure: ADJUSTMENT of EXTERNAL FIXATOR; Surgeon: Alena Mora DPM; Location: [facility]; Service: Podiatry CT COLONOSCOPY 02/24/[address] COLONOSCOPY 03/21/2023 CT COLONOSCOPY CYST REMOVED FROM CHEST N/A INCISION AND DRAINAGE FOOT AND ANKLE Right 12/02/2019 Procedure: RIGHT FOOT I&D; Surgeon: Alena Mora DPM; Location: [facility]; Service: Podiatry LIPOSUCTION METAL IN LEFT LEFT WRIST AND LEFT 5TH TOE Left ORIF FOOT FRACTURE Left 07/03/2013 5th metatarsal ORTHOPEDIC SURGERY WI AMPUTATION TOE INTERPHALANGEAL JOINT Left 06/29/2024 Procedure: left partial 2nd toe amputation; Surgeon: Alena Mora DPM; Location: [facility];Service: Podiatry RECONSTRUCTION FOOT CHARCOT Right 11/20/2019 Procedure: RIGHT FOOT RECONSTRUCTION WITH APPLICATION OF CIRCULAR STATIC EXTERNAL FIXATION; Surgeon: Alena Mora DPM; [facility]: [facility]; Service: Podiatry RT FOOT SURGERY Right SHARMIL[place] JEONG N/A Physical Examination: BP (!) 141/77 (BP Location: Right arm, Patient Position: Sitting, BP Cuff Size: X-large Adult) Pulse (!) 56 Temp 97.5 F (36.4 C) (Temporal) General Appearance: Alert, cooperative, no distress, appears stated age. Podiatric Exam Vascular: DP and PT pulses are palpable. Capillary refill time is less than 3 secs to distal digits. Skin temperature is warm to cool from proximal tibial tuberosity to distal digit. + 3 pitting edema noted to bilateral lower extremities, improved minimally Neurological: Gross sensation is intact. Protective sensation is absent using the [place] Asif monofilament. Dermatologic: Patient has bilateral lower extremity wounds scattered to right leg with serous drainage, improved since the last clinic visit. No appreciable wound on the left leg. Musculoskeletal: Patient is able to wiggle digits. Ankle joint range of motion is intact. Compartments soft and compressible. No calf pain Diagnoses: 1. Skin ulcer of right lower leg with fat layer exposed (HCC) 2. Skin ulcer of left lower leg with fat layer exposed (HCC) 3. Bilateral lower extremity edema Assessment/Plan: Patient was seen and evaluated. Discussed all clinical findings Patient has multiple wounds and edema to the bilateral legs. This is improved since last clinic visit. At this time, no need for excisional debridement of wounds. Instructed the patient to continue to wash his feet with soap and water. Patient may stop applying Betadine wet to dry it and to only apply Adaptic and Kb to open wounds. Patient is instructed tochange dressing once every other day. Patient instructed to offload as much as possible. All questions were answered to patient satisfaction. Patient understands to call with any questionsor concerns. Follow-up in 3 weeks for reevaluation. This note was partially created using voice recognition software and is inherently subject to errors including those of syntax and sound-alike substitutions which may escape proofreading. In such instances, original meaning may be extrapolated by contextual derivation. Alena Mora DPM, MS Podiatric Physician & Surgeon documented in this [id number] NoteEstablished Patient Visit Alena Mora DPM Patient Name: Dyllan Huertas. . Date of : 1960, 64 y.o.. Gender: male. Subjective: Patient is a pleasant 63-year-old male who presents to clinic for follow-up evaluation of bilateral lower extremity edema and open wounds. Patient report that he has been applying silver cell and Kb to the wounds and dressing it with Kerlix and Zechariah bandage. Reports improvement. Denies any new activity or trauma. Denies fevers, chills, nausea, vomiting, chest pain, shortness of breath, or any other constitutional symptoms. Past Medical History: Diagnosis Date Acquired equinus deformity of right foot Acquired hammer toe of right foot Angina pectoris with documented spasm Calluse Cellulitis of left toe Charcot's joint, right ankle and foot Chronic osteomyelitis with draining sinus, right ankle and foot ([facility]) Complication of external fixation device with internal components ([facility]) Coronary artery disease Dehiscence of incision Diabetes mellitus, type 2 ([facility]) Dystrophic nail Edema Effusion of ankle and foot joint Fracture of metatarsal, closed Fungal toenail infection Hyperlipidemia Hypertension Hypothyroidism 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 ([facility]) Non-pressure chronic ulcer of other part of left foot limited to breakdown of skin (HCC) Non-pressure chronic ulcer of other part of right foot with fat layer exposed ([facility]) limited to breakdown of skin Obesity Overflow incontinence Peripheral neuropathy Pressure ulcer of right foot, stage 2 ([facility]) S/P foot surgery, right 12/09/2019 11/20/2019Right foot reconstruction surgery with external fixation 12/02/2019 Right foot I and D Sleep apnea, obstructive does not use CPAP Tibia/fibula fracture Past Surgical History: Procedure Laterality Date APPENDECTOMY ARTHRODESIS SUBTALAR Right 05/01/2020 Procedure: RIGHT ANKLE ARTHRODESIS, SUBTALAR ARTHRODESIS RIGHT ANKLE, Bone [place] Graft From Right Fibula, Application of Splint; Surgeon: Alena Mora DPM; [facility]; Service: Podiatry ARTHROPLASTY TOE Right 01/25/2019 Procedure: ARTHROPLASTY 2ND TOE RIGHT FOOT; Surgeon: Rosa M Robles DPM; [facility] [facility]; Service: Podiatry CABG 2017 CARDIAC SURGERY 2017 CABG tripe bypass CLOSED REDUCTION PERCUTANEOUS PINNING LOWER EXTREMITY N/A 12/02/2019 Procedure: ADJUSTMENT of EXTERNAL FIXATOR; Surgeon: Alena Mora DPM; Location: [facility]; Service: Podiatry CT COLONOSCOPY 02/24/[address] COLONOSCOPY 03/21/2023 CT COLONOSCOPY CYST REMOVED FROM CHEST N/A INCISION AND DRAINAGE FOOT AND ANKLE Right 12/02/2019 Procedure: RIGHT FOOT I&D; Surgeon: Alena Mora DPM; [facility]: [facility]; Service: Podiatry LIPOSUCTION METAL IN LEFT LEFT WRIST AND LEFT 5TH TOE Left ORIF FOOT FRACTURE Left 07/03/2013 5th metatarsal ORTHOPEDIC SURGERY WI AMPUTATION TOE INTERPHALANGEAL JOINT Left 06/29/2024 Procedure: left partial 2nd toe amputation; Surgeon: Alena Mora DPM; [facility]; Service: Podiatry RECONSTRUCTION FOOT CHARCOT Right 11/20/2019 Procedure: RIGHT FOOT RECONSTRUCTION WITH APPLICATION OF CIRCULAR STATIC EXTERNAL FIXATION; Surgeon: Alena Mora DPM; [facility]; Service: Podiatry RT FOOT SURGERY Right [place] N/A Physical Examination: BP 122/69 (BP Location: Left arm, Patient Position: Sitting, BP Cuff Size: Adult) Pulse 84 Temp 98.5 degrees F (36.9 degrees C) (Infrared) General Appearance: Alert, cooperative, no distress, appears stated age. Podiatric Exam Vascular: DP and PT pulses are palpable. Capillary refill time is less than 3 secs to distal digits. Skin temperature is warm to cool from proximal tibial tuberosity to distal digit. + 3 pitting edema noted to bilateral lower extremities, improved minimally Neurological: Gross sensation is intact. Protective sensation is absent using the [place] Asif monofilament. Dermatologic: Patient has bilateral lower extremity new wounds scattered to right leg with serous drainage, improved since the last clinic visit. No appreciable wound on the left leg. Musculoskeletal: Patient is able to wiggle digits. Ankle joint range of motion is intact. Compartments soft and compressible. No calf pain Diagnoses: 1. Skin ulcer of right lower leg with fat layer exposed (HCC) 2. Skin ulcer of left lower leg with fat layer exposed ([facility]) 3. Bilateral lower extremity edema Assessment/Plan: Patient was seen and evaluated. Discussed all clinical findings Patient has multiple wounds and edema to the bilateral legs. This is improved since last clinic visit. At this time, no need for excisional debridement of wounds. Instructed the patient to continue to wash his feet with soap and water followed by drying thoroughly and applying Betadine wet-to-dry. Patient is to hold off on applying silver ce (more content not included)...[facility] 12-03-2024 History of Present illness Narrative* Alena Mora DPM - 12/03/2024 3:34 PM EST Established Patient Visit Alena Mora DPM Patient Name: Dyllan Huertas. . Date of : 1960, 64 y.o.. Gender: male. Subjective: Patient is a pleasant 63-year-old male who presents to clinic for follow-up evaluation of bilaterallower extremity edema and open wounds. Patient report that he has been applying silver cell and Kb to the wounds and dressing it with Kerlix and Zechariah bandage. Reports improvement. Denies any new activity or trauma. Denies fevers, chills, nausea, vomiting, chest pain, shortness of breath, or any other constitutional symptoms. Past Medical History: Diagnosis Date Acquired equinus deformity of right foot Acquired hammer toe of right foot Angina pectoris with documented spasm Calluse Cellulitis of left toe Charcot's joint, right ankle and foot Chronic osteomyelitis with draining sinus, right ankle and foot ([facility]) Complication of external fixation device with internal components ([facility]) Coronary artery disease Dehiscence of incision Diabetes mellitus, type 2 ([facility]) Dystrophic nail Edema Effusion of ankle and foot joint Fracture of metatarsal, closed Fungal toenail infection Hyperlipidemia Hypertension Hypothyroidism 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 ([facility]) Non-pressure chronic ulcer of other part of left foot limited to breakdown of skin (HCC) Non-pressure chronic ulcer of other part of right foot with fat layer exposed (HCC) limited to breakdown of skin Obesity Overflow incontinence Peripheral neuropathy Pressure ulcer of right foot, stage 2 ([facility]) S/P foot surgery, right 12/09/2019 11/20/2019Right foot reconstruction surgery with external fixation 12/02/2019 Right foot I and D Sleep apnea, obstructive does not use CPAP Tibia/fibula fracture Past Surgical History: Procedure Laterality Date APPENDECTOMY ARTHRODESIS SUBTALAR Right 05/01/2020 Procedure: RIGHT ANKLE ARTHRODESIS, SUBTALAR ARTHRODESIS RIGHT ANKLE, Bone [place] Graft From RightFibula, Application of Splint; Surgeon: Alena Mora DPM; [facility]; Service: Podiatry ARTHROPLASTY TOE Right 01/25/2019 Procedure: ARTHROPLASTY 2ND TOE RIGHT FOOT; Surgeon: Rosa M Robles DPM; [facility]; Service: Podiatry CABG 2017 CARDIAC SURGERY 2017 CABG tripe bypass CLOSED REDUCTION PERCUTANEOUS PINNING LOWER EXTREMITY N/A 12/02/2019 Procedure: ADJUSTMENT of EXTERNAL FIXATOR; Surgeon: Alena Mora DPM; [facility]: [facility]; Service: Podiatry CT COLONOSCOPY 02/24/[address] COLONOSCOPY 03/21/2023 CT COLONOSCOPY CYST REMOVED FROM CHEST N/A INCISION AND DRAINAGE FOOT AND ANKLE Right 12/02/2019 Procedure: RIGHT FOOT I&D; Surgeon: Alena Mora DPM; [facility]; Service: Podiatry LIPOSUCTION METAL IN LEFT LEFT WRIST AND LEFT 5TH TOE Left ORIF FOOT FRACTURE Left 07/03/2013 5th metatarsal ORTHOPEDIC SURGERY WI AMPUTATION TOE INTERPHALANGEAL JOINT Left 06/29/2024 Procedure: left partial 2nd toe amputation; Surgeon: Alena Mora DPM; [facility];Service: Podiatry RECONSTRUCTION FOOT CHARCOT Right 11/20/2019 Procedure: RIGHT FOOT RECONSTRUCTION WITH APPLICATION OF CIRCULAR STATIC EXTERNAL FIXATION; Surgeon: Alena Mora DPM; [facility]; Service: [facility]iat[facility] Physical Examination: BP 122/69 (BP Location: Left arm, Patient Position: Sitting, BP Cuff Size: Adult) Pulse 84 Temp98.5 F (36.9 C) (Infrared) General Appearance: Alert, cooperative, no distress, appears stated age. Podiatric Exam Vascular: DP and PT pulses are palpable. Capillary refill time is less than 3 secs to distal digits. Skin temperature is warm to cool from proximal tibial tuberosity to distal digit. + 3 pitting edema noted to bilateral lower extremities, improved minimally Neurological: Gross sensation is intact. Protective sensation is absent using the [place] Asif monofilament. Dermatologic: Patient has bilateral lower extremity new wounds scattered to right leg with serous drainage, improved since the last clinic visit. No appreciable wound on the left leg. Musculoskeletal: Patient is able to wiggle digits. Ankle joint range of motion is intact. Compartments soft and compressible. No calf pain Diagnoses: 1. Skin ulcer of right lower leg with fat layer exposed (HCC) 2. Skin ulcer of left lower leg with fat layer exposed (HCC) 3. Bilateral lower extremity edema Assessment/Plan: Patient was seen and evaluated. Discussed all clinical findings Patient has multiple wounds and edema to the bilateral legs. This is improved since last clinic visit. At this time, no need for excisional debridement of wounds. Instructed the patient to continue to wash his feet with soap and water followed by drying thoroughly and applying Betadine wet-to-dry. Patient is to hold off on applying silver cell or Kb at this time. Patient is instructed to change dressing once daily. Patient instructed to offload as much as possible. All questions were answered to patient satisfaction. Patient understands to call with any questionsor concerns. Follow-up in 1 week for reevaluation. This note was partially created using voice recognition software and is inherently subject to errors including those of syntax and sound-alike substitutions which may escape proofreading. In such instances, original meaning may be extrapolated by contextual derivation. Alena Mora DPM, MS Podiatric Physician & Surgeon documented in this [id number] NoteEstablished Patient Visit Alena Mora DPM Patient Name: Dyllan Huertas. . Date of : 1960, 64 y.o.. Gender: male. Subjective: Patient is a pleasant 63-year-old male who presents to clinic for follow-up evaluation of bilateral lower extremity edema. Patient reports that he has been noticing drainage through the dressing despite him taking Bumex as instructed. Denies any new activity or trauma. Denies fevers, chills, nausea, vomiting, chest pain, shortness of breath, or any other constitutional symptoms. Past Medical History: Diagnosis Date Acquired equinus deformity of right foot Acquired hammer toe of right foot Angina pectoris with documented spasm Calluse Cellulitis of left toe Charcot's joint, right ankle and foot Chronic osteomyelitis with draining sinus, right ankle and foot ([facility]) Complication of external fixation device with internal components ([facility]) Coronary artery disease Dehiscence of incision Diabetes mellitus, type 2 ([facility]) Dystrophic nail Edema Effusion of ankle and foot joint Fracture of metatarsal, closed Fungal toenail infection Hyperlipidemia Hypertension Hypothyroidism 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 ([facility]) Non-pressure chronic ulcer of other part of left foot limited to breakdown of skin ([facility]) Non-pressure chronic ulcer of other part of right foot with fat layer exposed ([facility]) limited to breakdown of skin Obesity Overflow incontinence Peripheral neuropathy Pressure ulcer of right foot, stage 2 ([facility]) S/P foot surgery, right 12/09/2019 11/20/2019Right foot reconstruction surgery with external fixation 12/02/2019 Right foot I and D Sleep apnea, obstructive does not use CPAP Tibia/fibula fracture Past Surgical History: Procedure Laterality Date APPENDECTOMY ARTHRODESIS SUBTALAR Right 05/01/2020 Procedure: RIGHT ANKLE ARTHRODESIS, SUBTALAR ARTHRODESIS RIGHT ANKLE, Bone [place] Graft From Right Fibula, Application of Splint; Surgeon: Alena Mora DPM; [facility]; Service: Podiatry ARTHROPLASTY TOE Right 01/25/2019 Procedure: ARTHROPLASTY 2ND TOE RIGHT FOOT; Surgeon: Rosa M Robles DPM; [facility]; Service: Podiatry CABG 2017 CARDIAC SURGERY 2017 CABG tripe bypass CLOSED REDUCTION PERCUTANEOUS PINNING LOWER EXTREMITY N/A 12/02/2019 Procedure: ADJUSTMENT of EXTERNAL FIXATOR; Surgeon: Alena Mora DPM; Location: [facility]; Service: Podiatry CT COLONOSCOPY 02/24/[address] COLONOSCOPY 03/21/2023 CT COLONOSCOPY CYST REMOVED FROM CHEST N/A INCISION AND DRAINAGE FOOT AND ANKLE Right 12/02/2019 Procedure: RIGHT FOOT I&D; Surgeon: Alena Mora DPM; [facility]; Service: Podiatry LIPOSUCTION METAL IN LEFT LEFT WRIST AND LEFT 5TH TOE Left ORIF FOOT FRACTURE Left 07/03/2013 5th metatarsal ORTHOPEDIC SURGERY WI AMPUTATION TOE INTERPHALANGEAL JOINT Left 06/29/2024 Procedure: left partial 2nd toe amputation; Surgeon: Alena Mora DPM; [facility]; Service: Podiatry RECONSTRUCTION FOOT CHARCOT Right 11/20/2019 Procedure: RIGHT FOOT RECONSTRUCTION WITH APPLICATION OF CIRCULAR STATIC EXTERNAL FIXATION; Surgeon: Alena Mora DPM; [facility]; Service: Podiatry RT FOOT SURGERY Right SHARMIL[place] JEONG N/A Physical Examination: BP 135/80 (BP Location: Right arm, Patient Position: Sitting, BP Cuff Size: X-large Adult) Pulse 88 Temp 97.2 degrees F (36.2 degrees C) (Temporal) General Appearance: Alert, cooperative, no distress, appears stated age. Podiatric Exam Vascular: DP and PT pulses are palpable. Capillary refill time is less than 3 secs to distal digits. Skin temperature is warm to cool from proximal tibial tuberosity to distal digit. + 3 pitting edema noted to bilateral lower extremities, improved minimally Neurological: Gross sensation is intact. Protective sensation is absent using the [place] Asif monofilament. Dermatologic: Patient has bilateral lower extremity new wounds scattered to right leg with serous drainage. No appreciable wound on the left leg. Musculoskeletal: Patient is able to wiggle digits. Ankle joint range of motion is intact. Compartments soft and compressible. No calf pain Diagnoses: 1. Bilateral lower extremity edema 2. Skin ulcer of right lower leg, limited to breakdown of skin (HCC) 3. Chronic ulcer of left leg with fat layer exposed (HCC) Wound Aerobic Culture Assessment/Plan: Patient was seen and evaluated. Discussed all clinical findings Patient has multiple wounds to the right leg and edema to bilateral legs. Due to the serous drainage and new wounds to the right leg, a wound swab culture was obtained and sent to microbiology for culture and sensitivity. Patient was also prescribed an oral antibiotic. Pending culture results, the oral antibiotic may need to be changed accordingly. Moreover, both legs were washed with soap and w (more content not included)... [facility] History of Present illness Narrative* Alena Mora DPM - 11/27/2024 1:02 PM EST Images from the original note were not included. Established Patient Visit Alena Mora DPM Patient Name: Dyllan Huertas. . Date of : 1960, 64 y.o.. Gender: male. Subjective: Patient is a pleasant 63-year-old male who presents to clinic for follow-up evaluation of bilaterallower extremity edema. Patient reports that he has been noticing drainage through the dressing despite him taking Bumex as instructed. Denies any new activity or trauma. Denies fevers, chills, nausea, vomiting, chest pain, shortness of breath, or any other constitutional symptoms. Past Medical History: Diagnosis Date Acquired equinus deformity of right foot Acquired hammer toe of right foot Angina pectoris with documented spasm Calluse Cellulitis of left toe Charcot's joint, right ankle and foot Chronic osteomyelitis with draining sinus, right ankle and foot ([facility]) Complication of external fixation device with internal components ([facility]) Coronary artery disease Dehiscence of incision Diabetes mellitus, type 2 ([facility]) Dystrophic nail Edema Effusion of ankle and foot joint Fracture of metatarsal, closed Fungal toenail infection Hyperlipidemia Hypertension Hypothyroidism 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 ([facility]) Non-pressure chronic ulcer of other part of left foot limited to breakdown of skin ([facility] [facility]) Non-pressure chronic ulcer of other part of right foot with fat layer exposed ([facility]) limited to breakdown of skin Obesity Overflow incontinence Peripheral neuropathy Pressure ulcer of right foot, stage 2 ([facility]) S/P foot surgery, right 12/09/2019 11/20/2019Right foot reconstruction surgery with external fixation 12/02/2019 Right foot I and D Sleep apnea, obstructive does not use CPAP Tibia/fibula fracture Past Surgical History: Procedure Laterality Date APPENDECTOMY ARTHRODESIS SUBTALAR Right 05/01/2020 Procedure: RIGHT ANKLE ARTHRODESIS, SUBTALAR ARTHRODESIS RIGHT ANKLE, Bone [place] Graft From RightFibula, Application of Splint; Surgeon: Alena Mora DPM; Location: [facility] OR; Service: Podiatry ARTHROPLASTY TOE Right 01/25/2019 Procedure: ARTHROPLASTY 2ND TOE RIGHT FOOT; Surgeon: Rosa M Robles DPM; Location: [facility] [place]; Service: Podiatry CABG 2017 CARDIAC SURGERY 2017 CABG tripe bypass CLOSED REDUCTION PERCUTANEOUS PINNING LOWER EXTREMITY N/A 12/02/2019 Procedure: ADJUSTMENT of EXTERNAL FIXATOR; Surgeon: Alena Mora DPM; Location: [facility] OR; Service: Podiatry CT COLONOSCOPY 02/24/[address] COLONOSCOPY 03/21/2023 CT COLONOSCOPY CYST REMOVED FROM CHEST N/A INCISION AND DRAINAGE FOOT AND ANKLE Right 12/02/2019 Procedure: RIGHT FOOT I&D; Surgeon: Alena Mora DPM; Location: [facility] OR; Service: Podiatry LIPOSUCTION METAL IN LEFT LEFT WRIST AND LEFT 5TH TOE Left ORIF FOOT FRACTURE Left 07/03/2013 5th metatarsal ORTHOPEDIC SURGERY WI AMPUTATION TOE INTERPHALANGEAL JOINT Left 06/29/2024 Procedure: left partial 2nd toe amputation; Surgeon: Alena Mora DPM; Location: [facility] OR;Service: Podiatry RECONSTRUCTION FOOT CHARCOT Right 11/20/2019 Procedure: RIGHT FOOT RECONSTRUCTION WITH APPLICATION OF CIRCULAR STATIC EXTERNAL FIXATION; Surgeon: Alena Mora DPM; Location: [facility]; Service: Podiatry RT FOOT SURGERY Right [place] N/A Physical Examination: BP 135/80 (BP Location: Right arm, Patient Position: Sitting, BP Cuff Size: X- large Adult) Pulse 88 Temp 97.2 F (36.2 C) (Temporal) General Appearance: Alert, cooperative, no distress, appears stated age. Podiatric Exam Vascular: DP and PT pulses are palpable. Capillary refill time is less than 3 secs to distal digits. Skin temperature is warm to cool from proximal tibial tuberosity to distal digit. + 3 pitting edema noted to bilateral lower extremities, improved minimally Neurological: Gross sensation is intact. Protective sensation is absent using the [place] Asif monofilament. Dermatologic: Patient has bilateral lower extremity new wounds scattered to right leg with serous drainage. No appreciable wound on the left leg. Musculoskeletal: Patient is able to wiggle digits. Ankle joint range of motion is intact. Compartments soft and compressible. No calf pain Diagnoses: 1. Bilateral lower extremity edema 2. Skin ulcer of right lower leg, limited to breakdown of skin (HCC) 3. Chronic ulcer of left leg with fat layer exposed (HCC) Wound Aerobic Culture Assessment/Plan: Patient was seen and evaluated. Discussed all clinical findings Patient has multiple wounds to the right leg and edema to bilateral legs. Due to the serous drainage and new wounds to the right leg, a wound swab culture was obtained and sent to microbiology for culture and sensitivity. Patient was also prescribed an oral antibiotic. Pending culture results, the oral antibiotic may need to be changed accordingly. Moreover, both legs were washed with soap and water dry thoroughly and applied Betadine wet-to-dry to the open wound site on the right leg. Patient is instructed to change dressing once daily. Patient instructed to offload as much as possible. All questions were answered to patient satisfaction. Patient understands to call with any questionsor concerns. Follow-up in 1 week for reevaluation. This note was partially created using voice recognition software and is inherently subject to errors including those of syntax and sound-alike substitutions which may escape proofreading. In such instances, original meaning may be extrapolated by contextual derivation. Alena Mora DPM, MS Podiatric Physician & Surgeon documented in this [id number] NoteEstablished Patient Visit Alena Mora DPM Patient Name: Dyllan Huertas. . Date of : 1960, 64 y.o.. Gender: male. Subjective: Patient is a pleasant 63-year-old male who presents to clinic for follow-up evaluation of bilateral lymphedema. Patient has kept his Un[place] boot clean and dry as instructed. States that he noticed a new blister on his right second toe. States that he continue to take Bumex. No other pedal complaint at this time. Denies fevers, chills, nausea, vomiting, chest pain, shortness of breath, or any other constitutional symptoms. 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) Non-pressure chronic ulcer of other part of left foot limited to breakdown of skin (HCC) Non-pressure chronic ulcer of other part of right foot with fat layer exposed (HCC) limited to breakdown of skin Obesity Overflow incontinence Peripheral neuropathy Pressure ulcer of right foot, stage 2 (HCC) S/P foot surgery, right 12/09/2019 11/20/2019Right foot reconstruction surgery with external fixation 12/02/2019 Right foot I and D Sleep apnea, obstructive does not use CPAP Tibia/fibula fracture Past Surgical History: Procedure Laterality Date APPENDECTOMY ARTHRODESIS SUBTALAR Right 05/01/2020 Procedure: RIGHT ANKLE ARTHRODESIS, SUBTALAR ARTHRODESIS RIGHT ANKLE, Bone [place] Graft From Right Fibula, Application of Splint; Surgeon: Alena Mora DPM; Location: [facility]; Service: Podiatry ARTHROPLASTY TOE Right 01/25/2019 Procedure: ARTHROPLASTY 2ND TOE RIGHT FOOT; Surgeon: Rosa M Robles DPM; Location[place] [facility]; Service: Podiatry CABG 2017 CARDIAC SURGERY 2017 CABG tripe bypass CLOSED REDUCTION PERCUTANEOUS PINNING LOWER EXTREMITY N/A 12/02/2019 Procedure: ADJUSTMENT of EXTERNAL FIXATOR; Surgeon: Alena Mora DPM; Location: [facility] OR; Service: Podiatry CT COLONOSCOPY 02/24/[address] COLONOSCOPY 03/21/2023 CT COLONOSCOPY CYST REMOVED FROM CHEST N/A INCISION AND DRAINAGE FOOT AND ANKLE Right 12/02/2019 Procedure: RIGHT FOOT I&D; Surgeon: Alena Mora DPM; Location: [facility] OR; Service: Podiatry LIPOSUCTION METAL IN LEFT LEFT WRIST AND LEFT 5TH TOE Left ORIF FOOT FRACTURE Left 07/03/2013 5th metatarsal ORTHOPEDIC SURGERY WI AMPUTATION TOE INTERPHALANGEAL JOINT Left 06/29/2024 Procedure: left partial 2nd toe amputation; Surgeon: Alena Mora DPM; Location: [facility]; Service: Podiatry RECONSTRUCTION FOOT CHARCOT Right 11/20/2019 Procedure: RIGHT FOOT RECONSTRUCTION WITH APPLICATION OF CIRCULAR STATIC EXTERNAL FIXATION; Surgeon: Alena Mora DPM; Location: [facility]; Service: Podiatry RT FOOT SURGERY Right [facility] N/A Physical Examination: BP (!) 160/89 (BP Location: Right arm, Patient Position: Sitting, BP Cuff Size: Adult) Pulse 73 Temp 98.2 degrees F (36.8 degrees C) (Temporal) General Appearance: Alert, cooperative, no distress, appears stated age. Podiatric Exam Vascular: DP and PT pulses are palpable. Capillary refill time is less than 3 secs to distal digits. Skin temperature is warm to cool from proximal tibial tuberosity to distal digit. + 3 pitting edema noted to bilateral lower extremities. Neurological: Gross sensation is intact. Protective sensation is absent using the [place] Asif monofilament. Dermatologic: Partial-thickness wound noted to the distal lateral right leg. Small full-thickness ulceration noted to the dorsal right second toe and lateral left ankle. No surrounding erythema, edema or any acute signs infection. Musculoskeletal: Patient is able to wiggle digits. Ankle joint range of motion is intact. Compartments soft and compressible. No calf pain Diagnoses: 1. Bilateral lower extremity edema 2. Chronic venous insufficiency 3. Skin ulcer of right lower leg, limited to breakdown of skin (HCC) 4. Chronic ulcer of left leg with fat layer exposed (HCC) 5. Skin ulcer of right great toe, limited to breakdown of skin (HCC) Assessment/Plan: Patient was seen and evaluated. Discussed all clinical findings Patient continues to have significant bilateral lower extremity edema requiring multilayer compression dressing. Patient also has open wounds to the right leg, right second toe, and left medial foot. All wound (more content not included)...[facility]02-10-2025 History of Present illness Narrative* Alena Mora DPM - 11/13/2024 2:48 PM EST Images from the original note were not included. Established Patient Visit Alena Mora DPM Patient Name: Dyllan Huertas. . Date of : 1960, 64 y.o.. Gender: male. Subjective: Patient is a pleasant 63-year-old male who presents to clinic for follow-up evaluation of bilaterallymphedema. Patient has kept his Unna boot clean and dry as instructed. States that he noticed a new blister on his right second toe. States that he continue to take Bumex. No other pedal complaint at this time. Denies fevers, chills, nausea, vomiting, chest pain, shortness of breath, or any other constitutional symptoms. Past Medical History: Diagnosis Date Acquired equinus deformity of right foot Acquired hammer toe of right foot Angina pectoris with documented spasm Calluse Cellulitis of left toe Charcot's joint, right ankle and foot Chronic osteomyelitis with draining sinus, right ankle and foot ([facility]) Complication of external fixation device with internal components ([facility]) Coronary artery disease Dehiscence of incision Diabetes mellitus, type 2 ([facility]) Dystrophic nail Edema Effusion of ankle and foot joint Fracture of metatarsal, closed Fungal toenail infection Hyperlipidemia Hypertension Hypothyroidism 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 ([facility]) Non-pressure chronic ulcer of other part of left foot limited to breakdown of skin ([facility]) Non-pressure chronic ulcer of other part of right foot with fat layer exposed ([facility]) limited to breakdown of skin Obesity Overflow incontinence Peripheral neuropathy Pressure ulcer of right foot, stage 2 ([facility]) S/P foot surgery, right 12/09/2019 11/20/2019Right foot reconstruction surgery with external fixation 12/02/2019 Right foot I and D Sleep apnea, obstructive does not use CPAP Tibia/fibula fracture Past Surgical History: Procedure Laterality Date APPENDECTOMY ARTHRODESIS SUBTALAR Right 05/01/2020 Procedure: RIGHT ANKLE ARTHRODESIS, SUBTALAR ARTHRODESIS RIGHT ANKLE, Bone [place] Graft From RightFibula, Application of Splint; Surgeon: Alena Mora DPM; Location: [facility]; Service: Podiatry ARTHROPLASTY TOE Right 01/25/2019 Procedure: ARTHROPLASTY 2ND TOE RIGHT FOOT; Surgeon: Rosa M Robles DPM; Location[facility]; Service: Podiatry CABG 2017 CARDIAC SURGERY 2017 CABG tripe bypass CLOSED REDUCTION PERCUTANEOUS PINNING LOWER EXTREMITY N/A 12/02/2019 Procedure: ADJUSTMENT of EXTERNAL FIXATOR; Surgeon: Alena Mora DPM; Location: [facility]; Service: Podiatry CT COLONOSCOPY 02/24/[address] COLONOSCOPY 03/21/2023 CT COLONOSCOPY CYST REMOVED FROM CHEST N/A INCISION AND DRAINAGE FOOT AND ANKLE Right 12/02/2019 Procedure: RIGHT FOOT I&D; Surgeon: Alena Mora DPM; Location: [facility]; Service: Podiatry LIPOSUCTION METAL IN LEFT LEFT WRIST AND LEFT 5TH TOE Left ORIF FOOT FRACTURE Left 07/03/2013 5th metatarsal ORTHOPEDIC SURGERY WI AMPUTATION TOE INTERPHALANGEAL JOINT Left 06/29/2024 Procedure: left partial 2nd toe amputation; Surgeon: Alena Mora DPM; Location: [facility];Service: Podiatry RECONSTRUCTION FOOT CHARCOT Right 11/20/2019 Procedure: RIGHT FOOT RECONSTRUCTION WITH APPLICATION OF CIRCULAR STATIC EXTERNAL FIXATION; Surgeon: Alena Mora DPM; Location: [facility]; Service: Podiatry RT FOOT SURGERY Right [place] N/A Physical Examination: BP (!) 160/89 (BP Location: Right arm, Patient Position: Sitting, BP Cuff Size: Adult) Pulse 73 Temp 98.2 F (36.8 C) (Temporal) General Appearance: Alert, cooperative, no distress, appears stated age. Podiatric Exam Vascular: DP and PT pulses are palpable. Capillary refill time is less than 3 secs to distal digits. Skin temperature is warm to cool from proximal tibial tuberosity to distal digit. + 3 pitting edema noted to bilateral lower extremities. Neurological: Gross sensation is intact. Protective sensation is absent using the [place] Asif monofilament. Dermatologic: Partial-thickness wound noted to the distal lateral right leg. Small full-thickness ulceration noted to the dorsal right second toe and lateral left ankle. No surrounding erythema, edema or any acute signs infection. Musculoskeletal: Patient is able to wiggle digits. Ankle joint range of motion is intact. Compartments soft and compressible. No calf pain Diagnoses: 1. Bilateral lower extremity edema 2. Chronic venous insufficiency 3. Skin ulcer of right lower leg, limited to breakdown of skin (HCC) 4. Chronic ulcer of left leg with fat layer exposed (HCC) 5. Skin ulcer of right great toe, limited to breakdown of skin (HCC) Assessment/Plan: Patient was seen and evaluated. Discussed all clinical findings Patient continues to have significant bilateral lower extremity edema requiring multilayer compression dressing. Patient also has open wounds to the right leg, right second toe, and left medial foot. All wounds were dressed with Betadine soaked Xeroform, 4 x 4's. Regarding patient's bilateral lower extremity edema, Profore multilayer compression dressing was prescribed and applied sequentially from toes to knee for edema control. Patient is at high risk for worsening blistering, reulceration, infection, etc. Patient is instructed to keep dressing clean and dry for 1 week. All questions were answered to patient satisfaction. Patient understands to call with any questionsor concerns. Follow-up in 1 week for reevaluation. This note was partially created using voice recognition software and is inherently subject to errors including those of syntax and sound-alike substitutions which may escape proofreading. In such instances, original meaning may be extrapolated by contextual derivation. Alena Mora DPM, MS Podiatric Physician & Surgeon documented in this [id number] NoteEstablished Patient Visit Alena Mora DPM Patient Name: Dyllan Huertas. . Date of : 1960, 64 y.o.. Gender: male. Subjective: Patient is a pleasant 63-year-old male who presents to clinic for follow-up evaluation of right third toe wound has remained healed. However, patient states that he has a new right foot wound and a new left foot wound. He has been applying Betadine to bilateral feet wounds and also silver cell. Patient also is complaining of significant edema to bilateral legs. Denies any recent trauma or injury. Denies fevers, chills, nausea, vomiting, chest pain, shortness of breath, or any other constitutional symptoms. Past Medical History: Diagnosis Date Acquired equinus deformity of right foot Acquired hammer toe of right foot Angina pectoris with documented spasm Calluse Cellulitis of left toe Charcot's joint, right ankle and foot Chronic osteomyelitis with draining sinus, right ankle and foot ([facility]) Complication of external fixation device with internal components ([facility]) Coronary artery disease Dehiscence of incision Diabetes mellitus, type 2 ([facility]) Dystrophic nail Edema Effusion of ankle and foot joint Fracture of metatarsal, closed Fungal toenail infection Hyperlipidemia Hypertension Hypothyroidism 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) Non-pressure chronic ulcer of other part of left foot limited to breakdown of skin (HCC) Non-pressure chronic ulcer of other part of right foot with fat layer exposed (HCC) limited to breakdown of skin Obesity Overflow incontinence Peripheral neuropathy Pressure ulcer of right foot, stage 2 ([facility]) S/P foot surgery, right 12/09/2019 11/20/2019Right foot reconstruction surgery with external fixation 12/02/2019 Right foot I and D Sleep apnea, obstructive does not use CPAP Tibia/fibula fracture Past Surgical History: Procedure Laterality Date APPENDECTOMY ARTHRODESIS SUBTALAR Right 05/01/2020 Procedure: RIGHT ANKLE ARTHRODESIS, SUBTALAR ARTHRODESIS RIGHT ANKLE, Bone [place] Graft From Right Fibula, Application of Splint; Surgeon: Alena Mora DPM; [facility]; Service: Podiatry ARTHROPLASTY TOE Right 01/25/2019 Procedure: ARTHROPLASTY 2ND TOE RIGHT FOOT; Surgeon: Rosa M Robles DPM; Location[facility]; Service: Podiatry CABG 2017 CARDIAC SURGERY 2017 CABG tripe bypass CLOSED REDUCTION PERCUTANEOUS PINNING LOWER EXTREMITY N/A 12/02/2019 Procedure: ADJUSTMENT of EXTERNAL FIXATOR; Surgeon: Alena Mora DPM; Location: [facility]; Service: Podiatry CT COLONOSCOPY 02/24/[address] COLONOSCOPY 03/21/2023 CT COLONOSCOPY CYST REMOVED FROM CHEST N/A INCISION AND DRAINAGE FOOT AND ANKLE Right 12/02/2019 Procedure: RIGHT FOOT I&D; Surgeon: Alena Mora DPM; Location: [facility]; Service: Podiatry LIPOSUCTION METAL IN LEFT LEFT WRIST AND LEFT 5TH TOE Left ORIF FOOT FRACTURE Left 07/03/2013 5th metatarsal ORTHOPEDIC SURGERY WI AMPUTATION TOE INTERPHALANGEAL JOINT Left 06/29/2024 Procedure: left partial 2nd toe amputation; Surgeon: Alena Mora DPM; Location: [facility]; Service: Podiatry RECONSTRUCTION FOOT CHARCOT Right 11/20/2019 Procedure: RIGHT FOOT RECONSTRUCTION WITH APPLICATION OF CIRCULAR STATIC EXTERNAL FIXATION; Surgeon: Alena Mora DPM; Location: [facility]; Service: [facility] Physical Examination: BP (!) 170/90 (BP Location: Left arm, Patient Position: Sitting, BP Cuff Size: Adult) Comment: pt was talking Pulse (!) 103 Temp 98.2 degrees F (36.8 degrees C) (Infrared) General Appearance: Alert, cooperative, no distress, appears stated age. Podiatric Exam Vascular: DP and PT pulses are palpable. Capillary refill time is less than 3 secs to distal digits. Skin temperature is warm to cool from proximal tibial tuberosity to distal digit. + 3 pitting edema noted to bilateral lower extremities. Neurological: Gross sensation is intact. Protective sensation is absent using the [place] Asif monofilament. Dermatologic: Small scattered full-thickness wounds noted to bilateral feet. No surrounding erythema, edema or any acute signs of infection Musculoskeletal: Ankle joint range of motion is intact. Compartments soft and compressible. No calf pain Diagnoses: 1. Skin ulcer of left foot with fat layer exposed (HCC) 2. Chronic venous insufficiency 3. Skin ulcer of right foot with fat layer exposed (HCC) 4. Bilateral lower extremity edema Assessment/Plan: Patient was seen and evaluated. Discussed all clinical findings Patient has multiple small wounds to the right and left foot. No need for excisional debridement today. However, these wounds need to be dressed with silver cell, 4 x 4, Kerlix. Patient also has significant pitting edema noted to bilateral legs which places patient at high risk for reulceration, blis (more content not included)...[facility]02-10-2025 History of Present illness Narrative* Alena Mora DPM - 11/13/2024 12:41 PM EST Images from the original note were not included. Established Patient Visit Alena Mora DPM Patient Name: Dyllan Huertas. . Date of : 1960, 64 y.o.. Gender: male. Subjective: Patient is a pleasant 63-year-old male who presents to clinic for follow-up evaluation of right third toe wound has remained healed. However, patient states that he has a new right foot wound and a new left foot wound. He has been applying Betadine to bilateral feet wounds and also silver cell. Patient also is complaining of significant edema to bilateral legs. Denies any recent trauma or injury.Denies fevers, chills, nausea, vomiting, chest pain, shortness of breath, or any other constitutional symptoms. Past Medical History: Diagnosis Date Acquired equinus deformity of right foot Acquired hammer toe of right foot Angina pectoris with documented spasm Calluse Cellulitis of left toe Charcot's joint, right ankle and foot Chronic osteomyelitis with draining sinus, right ankle and foot (HCC) Complication of external fixation device with internal components ([facility]) Coronary artery disease Dehiscence of incision Diabetes mellitus, type 2 ([facility]) Dystrophic nail Edema Effusion of ankle and foot joint Fracture of metatarsal, closed Fungal toenail infection Hyperlipidemia Hypertension Hypothyroidism 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 ([facility]) Non-pressure chronic ulcer of other part of left foot limited to breakdown of skin (HCC) Non-pressure chronic ulcer of other part of right foot with fat layer exposed ([facility]) limited to breakdown of skin Obesity Overflow incontinence Peripheral neuropathy Pressure ulcer of right foot, stage 2 ([facility]) S/P foot surgery, right 12/09/2019 11/20/2019Right foot reconstruction surgery with external fixation 12/02/2019 Right foot I and D Sleep apnea, obstructive does not use CPAP Tibia/fibula fracture Past Surgical History: Procedure Laterality Date APPENDECTOMY ARTHRODESIS SUBTALAR Right 05/01/2020 Procedure: RIGHT ANKLE ARTHRODESIS, SUBTALAR ARTHRODESIS RIGHT ANKLE, Bone [place] Graft From RightFibula, Application of Splint; Surgeon: Alena Mora DPM; [facility]: [facility]; Service: Podiatry ARTHROPLASTY TOE Right 01/25/2019 Procedure: ARTHROPLASTY 2ND TOE RIGHT FOOT; Surgeon: Rosa M Robles DPM; Location[facility]; Service: Podiatry CABG 2017 CARDIAC SURGERY 2017 CABG tripe bypass CLOSED REDUCTION PERCUTANEOUS PINNING LOWER EXTREMITY N/A 12/02/2019 Procedure: ADJUSTMENT of EXTERNAL FIXATOR; Surgeon: Alena Mora DPM; Location: [facility]; Service: Podiatry CT COLONOSCOPY 02/24/[address] COLONOSCOPY 03/21/2023 CT COLONOSCOPY CYST REMOVED FROM CHEST N/A INCISION AND DRAINAGE FOOT AND ANKLE Right 12/02/2019 Procedure: RIGHT FOOT I&D; Surgeon: Alena Mora DPM; Location: [facility]; Service: Podiatry LIPOSUCTION METAL IN LEFT LEFT WRIST AND LEFT 5TH TOE Left ORIF FOOT FRACTURE Left 07/03/2013 5th metatarsal ORTHOPEDIC SURGERY WI AMPUTATION TOE INTERPHALANGEAL JOINT Left 06/29/2024 Procedure: left partial 2nd toe amputation; Surgeon: Alena Mora DPM; Location: [facility];Service: Podiatry RECONSTRUCTION FOOT CHARCOT Right 11/20/2019 Procedure: RIGHT FOOT RECONSTRUCTION WITH APPLICATION OF CIRCULAR STATIC EXTERNAL FIXATION; Surgeon: Alena Mora DPM; Location: [facility]; Service: Podiatry RT FOOT SURGERY Right [facility] N/A Physical Examination: BP (!) 170/90 (BP Location: Left arm, Patient Position: Sitting, BP Cuff Size: Adult) Comment: pt was talking Pulse (!) 103 Temp 98.2 F (36.8 C) (Infrared) General Appearance: Alert, cooperative, no distress, appears stated age. Podiatric Exam Vascular: DP and PT pulses are palpable. Capillary refill time is less than 3 secs to distal digits. Skin temperature is warm to cool from proximal tibial tuberosity to distal digit. + 3 pitting edema noted to bilateral lower extremities. Neurological: Gross sensation is intact. Protective sensation is absent using the [place] Asif monofilament. Dermatologic: Small scattered full-thickness wounds noted to bilateral feet. No surrounding erythema, edema or any acute signs of infection Musculoskeletal: Ankle joint range of motion is intact. Compartments soft and compressible. No calfpain Diagnoses: 1. Skin ulcer of left foot with fat layer exposed (HCC) 2. Chronic venous insufficiency 3. Skin ulcer of right foot with fat layer exposed (HCC) 4. Bilateral lower extremity edema Assessment/Plan: Patient was seen and evaluated. Discussed all clinical findings Patient has multiple small wounds to the right and left foot. No need for excisional debridement today. However, these wounds need to be dressed with silver cell, 4 x 4, Kerlix. Patient also has significant pitting edema noted to bilateral legs which places patient at high risk for reulceration, blistering, etc. Therefore, Unna boot compression multilayer dressing was prescribed and applied sequentially to bilateral legs from toes to knee. Patient is instructed to keep dressing clean and dry. All questions were answered to patient satisfaction. Patient understands to call with any questionsor concerns. Follow-up in 1 week for reevaluation and removal of bilateral Unna boot. This note was partially created using voice recognition software and is inherently subject to errors including those of syntax and sound-alike substitutions which may escape proofreading. In such instances, original meaning may be extrapolated by contextual derivation. Alena Mora DPM, [place] Podiatric Physician & Surgeon documented in this [id number] NoteEstablished Patient Visit Alena Mora DPM Patient Name: Dyllan Huertas. . Date of : 1960, 63 y.o.. Gender: male. Subjective: Patient is a pleasant 63-year-old male who presents to clinic for follow-up evaluation of right third toe wound. Patient stated he has been taking his Bumex as instructed. Reports improvement. However, he states that he has wound to the right third toe with Betadine wet-to-dry. States that he has been doing very well. Believes that he is all healed up. Denies fevers, chills, nausea, vomiting, chest pain, shortness of breath, or any other constitutional symptoms. Past Medical History: Diagnosis Date Acquired equinus deformity of right foot Acquired hammer toe of right foot Angina pectoris with documented spasm Calluse Cellulitis of left toe Charcot's joint, right ankle and foot Chronic osteomyelitis with draining sinus, right ankle and foot ([facility]) Complication of external fixation device with internal components ([facility]) Coronary artery disease Dehiscence of incision Diabetes mellitus, type 2 ([facility]) Dystrophic nail Edema Effusion of ankle and foot joint Fracture of metatarsal, closed Fungal toenail infection Hyperlipidemia Hypertension Hypothyroidism 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) Non-pressure chronic ulcer of other part of left foot limited to breakdown of skin (HCC) Non-pressure chronic ulcer of other part of right foot with fat layer exposed ([facility]) limited to breakdown of skin Obesity Overflow incontinence Peripheral neuropathy Pressure ulcer of right foot, stage 2 ([facility]) S/P foot surgery, right 12/09/2019 11/20/2019Right foot reconstruction surgery with external fixation 12/02/2019 Right foot I and D Sleep apnea, obstructive does not use CPAP Tibia/fibula fracture Past Surgical History: Procedure Laterality Date APPENDECTOMY ARTHRODESIS SUBTALAR Right 05/01/2020 Procedure: RIGHT ANKLE ARTHRODESIS, SUBTALAR ARTHRODESIS RIGHT ANKLE, Bone [place] Graft From Right Fibula, Application of Splint; Surgeon: Alena Mora DPM; Location: [facility] OR; Service: Podiatry ARTHROPLASTY TOE Right 01/25/2019 Procedure: ARTHROPLASTY 2ND TOE RIGHT FOOT; Surgeon: Rosa M Robles DPM; [place]; Service: Podiatry CABG 2017 CARDIAC SURGERY 2017 CABG tripe bypass CLOSED REDUCTION PERCUTANEOUS PINNING LOWER EXTREMITY N/A 12/02/2019 Procedure: ADJUSTMENT of EXTERNAL FIXATOR; Surgeon: Alena Mora DPM; Location: [facility] OR; Service: Podiatry CT COLONOSCOPY 02/24/[address] COLONOSCOPY 03/21/2023 CT COLONOSCOPY CYST REMOVED FROM CHEST N/A INCISION AND DRAINAGE FOOT AND ANKLE Right 12/02/2019 Procedure: RIGHT FOOT I&D; Surgeon: Alena Mora DPM; Location: [facility]; Service: Podiatry LIPOSUCTION METAL IN LEFT LEFT WRIST AND LEFT 5TH TOE Left ORIF FOOT FRACTURE Left 07/03/2013 5th metatarsal ORTHOPEDIC SURGERY [place] AMPUTATION TOE INTERPHALANGEAL JOINT Left 06/29/2024 Procedure: left partial 2nd toe amputation; Surgeon: Alena Mora DPM; Location: [facility]; Service: Podiatry RECONSTRUCTION FOOT CHARCOT Right 11/20/2019 Procedure: RIGHT FOOT RECONSTRUCTION WITH APPLICATION OF CIRCULAR STATIC EXTERNAL FIXATION; Surgeon: Alena Mora DPM; Location: [facility] OR; Service: Podiatry RT FOOT SURGERY Right [facility] N/A Physical Examination: BP 139/81 Pulse 84 Temp 97.8 degrees F (36.6 degrees C) Resp 16 SpO2 92% General Appearance: Alert, cooperative, no distress, appears stated age. Podiatric Exam Vascular: DP and PT pulses are palpable. Capillary refill time is less than 3 secs to distal digits. Skin temperature is warm to cool from proximal tibial tuberosity to distal digit. + 2 pitting edema noted to bilateral lower extremities, resolved Neurological: Gross sensation is intact. Protective sensation is absent using the [place] Asif monofilament. Dermatologic: No open wounds or ulcerations to bilateral legs. The open wound to the third toe on the right foot has now epithelialized. No surrounding erythema, edema or any acute signs of infection. Musculoskeletal: Ankle joint range of motion is intact. Compartments soft and compressible. No calf pain Diagnoses: 1. Skin ulcer of middle toe, right, with fat layer exposed ([facility]) 2. Diabetic peripheral neuropathy ([facility]) 3. PAD (peripheral artery disease) ([facility]) Media: Wound 06/29/24 1 Surgical Wound Second Toe Dorsal;Left (Active) Wound Image 07/28/24 1043 Wound Length (cm) 0.5 cm 07/28/24 1043 Wound Width (cm) 2 cm 07/28/24 1043 Wound Surface Area (cm^2) 1 cm^2 07/28/24 1043 Wound 07/14/24 Foot Left;Anterior (Active) Wound Image 07/28/24 1043 Wound Length (cm) 0.7 cm 07/28/24 1043 Wound Width (cm) 1 cm 07/28/24 1043 Wound Depth (cm) 0.1 cm 07/21/24 1008 Wound 07/21/24 Pre-tibial Left (Active) Wound Image 07/28/24 1042 Wound Length (more content not included)...[facility]01-17-2025 History of Present illness Narrative* Alena Mora DPM - 10/20/2024 12:38 PM EST Images from the original note were not included. Established Patient Visit Alena Mora DPM Patient Name: Dyllan Huertas. . Date of : 1960, 63 y.o.. Gender: male. Subjective: Patient is a pleasant 63-year-old male who presents to clinic for follow-up evaluation of right third toe wound. Patient stated he has been taking his Bumex as instructed. Reports improvement. However, he states that he has wound to the right third toe with Betadine wet-to-dry. States that he has been doing very well. Believes that he is all healed up. Denies fevers, chills, nausea, vomiting, chest pain, shortness of breath, or any other constitutional symptoms. 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) Non-pressure chronic ulcer of other part of left foot limited to breakdown of skin ([facility]) Non-pressure chronic ulcer of other part of right foot with fat layer exposed ([facility]) limited to breakdown of skin Obesity Overflow incontinence Peripheral neuropathy Pressure ulcer of right foot, stage 2 ([facility]) S/P foot surgery, right 12/09/2019 11/20/2019Right foot reconstruction surgery with external fixation 12/02/2019 Right foot I and D Sleep apnea, obstructive does not use CPAP Tibia/fibula fracture Past Surgical History: Procedure Laterality Date APPENDECTOMY ARTHRODESIS SUBTALAR Right 05/01/2020 Procedure: RIGHT ANKLE ARTHRODESIS, SUBTALAR ARTHRODESIS RIGHT ANKLE, Bone [place] Graft From RightFibula, Application of Splint; Surgeon: Alena Mora DPM; Location: [facility]; Service: Podiatry ARTHROPLASTY TOE Right 01/25/2019 Procedure: ARTHROPLASTY 2ND TOE RIGHT FOOT; Surgeon: Rosa M Robles DPM; [place] [facility] [place]; Service: Podiatry CABG 2017 CARDIAC SURGERY 2017 CABG tripe bypass CLOSED REDUCTION PERCUTANEOUS PINNING LOWER EXTREMITY N/A 12/02/2019 Procedure: ADJUSTMENT of EXTERNAL FIXATOR; Surgeon: Alena Mora DPM; Location: [facility]; Service: Podiatry CT COLONOSCOPY 02/24/[address] COLONOSCOPY 03/21/2023 CT COLONOSCOPY CYST REMOVED FROM CHEST N/A INCISION AND DRAINAGE FOOT AND ANKLE Right 12/02/2019 Procedure: RIGHT FOOT I&D; Surgeon: Alena Mora DPM; Location: [facility]; Service: Podiatry LIPOSUCTION METAL IN LEFT LEFT WRIST AND LEFT 5TH TOE Left ORIF FOOT FRACTURE Left 07/03/2013 5th metatarsal ORTHOPEDIC SURGERY [place] AMPUTATION TOE INTERPHALANGEAL JOINT Left 06/29/2024 Procedure: left partial 2nd toe amputation; Surgeon: Alena Mora DPM; Location: [facility];Service: Podiatry RECONSTRUCTION FOOT CHARCOT Right 11/20/2019 Procedure: RIGHT FOOT RECONSTRUCTION WITH APPLICATION OF CIRCULAR STATIC EXTERNAL FIXATION; Surgeon: Alena Mora DPM; Location: [facility]; Service: Podiatry RT FOOT SURGERY Right [facility] N/A Physical Examination: BP 139/81 Pulse 84 Temp 97.8 F (36.6 C) Resp 16 SpO2 92% General Appearance: Alert, cooperative, no distress, appears stated age. Podiatric Exam Vascular: DP and PT pulses are palpable. Capillary refill time is less than 3 secs to distal digits. Skin temperature is warm to cool from proximal tibial tuberosity to distal digit. + 2 pitting edema noted to bilateral lower extremities, resolved Neurological: Gross sensation is intact. Protective sensation is absent using the [place] Asif monofilament. Dermatologic: No open wounds or ulcerations to bilateral legs. The open wound to the third toe on the right foot has now epithelialized. No surrounding erythema, edema or any acute signs of infection. Musculoskeletal: Ankle joint range of motion is intact. Compartments soft and compressible. No calfpain Diagnoses: 1. Skin ulcer of middle toe, right, with fat layer exposed ([facility]) 2. Diabetic peripheral neuropathy ([facility]) 3. PAD (peripheral artery disease) ([facility]) Media: Wound 06/29/24 1 Surgical Wound Second Toe Dorsal;Left (Active) Wound Image 07/28/24 1043 Wound Length (cm) 0.5 cm 07/28/24 1043 Wound Width (cm) 2 cm 07/28/24 1043 Wound Surface Area (cm^2) 1 cm^2 07/28/24 1043 Wound 07/14/24 Foot Left;Anterior (Active) Wound Image 07/28/24 1043 Wound Length (cm) 0.7 cm 07/28/24 1043 Wound Width (cm) 1 cm 07/28/24 1043 Wound Depth (cm) 0.1 cm 07/21/24 1008 Wound 07/21/24 Pre-tibial Left (Active) Wound Image 07/28/24 1042 Wound Length (cm) 1 cm 07/28/24 1042 Wound Width (cm) 0.5 cm 07/28/24 1042 Wound Depth (cm) 0.1 cm 07/28/24 1042 Wound 06/29/24 1 Surgical Wound Second Toe Dorsal;Left (Active) Wound Image 07/28/24 1043 Wound Length (cm) 0.5 cm 07/28/24 1043 Wound Width (cm) 2 cm 07/28/24 1043 Wound Surface Area (cm^2) 1 cm^2 07/28/24 1043 Wound 07/07/24 Third Toe Dorsal;Right (Active) Wound Image 08/04/24 1011 Wound Length (cm) 0.2 cm 08/04/24 1011 Wound Width (cm) 0.5 cm 08/04/24 1011 Wound Depth (cm) 0.1 cm 07/28/24 1044 Wound 07/14/24 Foot Left;Anterior (Active) Wound Image 08/04/24 1012 Wound Length (cm) 0.7 cm 08/04/24 1012 Wound Width (cm) 1 cm 08/04/24 1012 Wound Depth (cm) 0.1 cm 08/04/24 1012 Wound 07/21/24 Pre-tibial Left (Active) Wound Image 08/04/24 1011 Wound Length (cm) 0.5 cm 08/04/24 1011 Wound Width (cm) 0.2 cm 08/04/24 1011 Wound Depth (cm) 0.1 cm 08/04/24 1011 Wound 06/29/24 1 Surgical Wound Second Toe Dorsal;Left (Active) Wound Image 08/11/24 0936 Wound Length (cm) 1 cm 08/11/24 0936 Wound Width (cm) 0.9 cm 08/11/24 0936 Wound Depth (cm) 0.1 cm 08/11/24 0936 Wound 07/14/24 Foot Left;Anterior (Active) Wound Image 08/11/24 0937 Wound Length (cm) 0.6 cm 08/11/24 0937 Wound Width (cm) 1 cm 08/11/24 0937 Wound Depth (cm) 0.1 cm 08/11/24 0937 Wound 07/21/24 Pre-tibial Left (Active) Wound Image 08/11/24 0935 Wound Length (cm) 2 cm 08/11/24 0935 Wound Width (cm) 2.2 cm 08/11/24 0935 Wound Depth (cm) 0.1 cm 08/11/24 0935 Wound 06/29/24 1 Surgical Wound Second Toe Dorsal;Left (Active) Wound Image 08/11/24 0936 Wound Length (cm) 1 cm 08/11/24 0936 Wound Width (cm) 0.9 cm 08/11/24 0936 Wound Depth (cm) 0.1 cm 08/11/24 0936 Wound 07/14/24 Foot Left;Anterior (Active) Wound Image 08/18/24 0850 Wound Length (cm) 0.5 cm 08/18/24 0850 Wound Width (cm) 0.7 cm 08/18/24 0850 Wound Depth (cm) 0.1 cm 08/18/24 0850 Wound 07/21/24 Pre-tibial Left (Active) Wound Image 08/18/24 0850 Wound Length (cm) 2.3 cm 08/18/24 0850 Wound Width (cm) 2.3 cm 08/18/24 0850 Wound Depth (cm) 0.1 cm 08/18/24 0850 Wound 06/29/24 1 Surgical Wound Second Toe Dorsal;Left (Active) Wound Image 09/08/24 1030 Wound Length (cm) 1 cm 08/11/24 0936 Wound Width (cm) 0.9 cm 08/11/24 0936 Wound Depth (cm) 0.1 cm 08/11/24 0936 Wound 07/07/24 Third Toe Dorsal;Right (Active) Wound Image 08/25/24 0854 Wound Length (cm) 0.3 cm 08/11/24 0938 Wound Width (cm) 0.3 cm 08/11/24 0938 Wound Depth (cm) 0.1 cm 08/11/24 0938 Wound 07/21/24 Pre-tibial Left (Active) Wound Image 09/08/24 1029 Wound Length (cm) 2.3 cm 08/18/24 0850 Wound Width (cm) 1 cm 09/08/24 1029 Wound Depth (cm) 0.1 cm 08/18/24 0850 Wound 08/25/24 Lower Leg Left;Lateral (Active) Wound Image 09/08/24 1028 Wound Length (cm) 1.5 cm 09/08/24 1028 Wound Width (cm) 3 cm 09/08/24 1028 Wound Depth (cm) 0.1 cm 08/25/24 0852 Wound 09/15/24 Leg Left;Medial (Active) Wound Image 09/15/24 1023 Wound Length (cm) 7 cm 09/15/24 1023 Wound Width (cm) 0.8 cm 09/15/24 1023 Wound Depth (cm) 0.1 cm 09/15/24 1023 Healed. Wound 09/22/24 Third Toe Dorsal;Right (Active) Wound Image 10/06/24 0921 Wound Length (cm) 0.5 cm 10/06/24 0921 Wound Width (cm) 0.2 cm 10/06/24 0921 Wound Depth (cm) 0.1 cm 09/22/24 0908 Healed Assessment/Plan: Patient was seen and evaluated. Discussed all clinical findings Patient's overall bilateral lower extremity edema has improved significantly since the last clinic visit. No open wounds or blisters to bilateral legs. The small wound to the right third toe has completely epithelialized. No surrounding erythema, edema or any acute signs of infection. No need for Betadine wet-to-dry dressing changes. No need for excisional debridement. Discussed with patient the importance of continued compression dressing using bilateral Tubigrip and Zechariah bandages to maintain edema control. We want to continue to follow patient closely as he is at high risk for reulceration, blistering, etc. Patient is to follow-up in 2 weeks at my [place] office to obtain final weightbearing radiographsof the left foot. Moreover, patient is to maintain edema control to bilateral legs by taking Bumex All questions were answered to patient satisfaction. Patient understands to call with any questionsor concerns. This note was partially created using voice recognition software and is inherently subject to errors including those of syntax and sound-alike substitutions which may escape proofreading. In such instances, original meaning may be extrapolated by contextual derivation. Alena Mora DPM, [place] Podiatric Physician & Surgeon documented in this [id number] Instructions* Patient Instructions* Lin Justice RN - 10/20/2024 9:53 AM EST Vaseline/Aquaphor to bilateral legs, Tubigrip and Zechariah bandage Frequency: Apply daily Follow up: 0 week(s)-patient is being discharged to the wound care center but is to call our officeand schedule to be seen in [facility] in 2 weeks. documented in this [id number] NoteEstablished Patient Visit Alena Mora DPM Patient Name: Dyllan Huertas. . Date of : 1960, 63 y.o.. Gender: male. Subjective: Patient is a pleasant 63-year-old male who presents to clinic for follow-up evaluation of bilateral leg wounds, blisters, etc. Patient stated he has been taking his Bumex as instructed. Reports improvement. However, he states that he has wound to the right third toe and his home health care nurse has been dressing it with silver cell. Denies fevers, chills, nausea, vomiting, chest pain, shortness of breath, or any other constitutional symptoms. Past Medical History: Diagnosis Date Acquired equinus deformity of right foot Acquired hammer toe of right foot Angina pectoris with documented spasm Calluse Cellulitis of left toe Charcot's joint, right ankle and foot Chronic osteomyelitis with draining sinus, right ankle and foot ([facility]) Complication of external fixation device with internal components ([facility]) Coronary artery disease Dehiscence of incision Diabetes mellitus, type 2 ([facility]) Dystrophic nail Edema Effusion of ankle and foot joint Fracture of metatarsal, closed Fungal toenail infection Hyperlipidemia Hypertension Hypothyroidism 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 ([facility]) Non-pressure chronic ulcer of other part of left foot limited to breakdown of skin ([facility]) Non-pressure chronic ulcer of other part of right foot with fat layer exposed ([facility]) limited to breakdown of skin Obesity Overflow incontinence Peripheral neuropathy Pressure ulcer of right foot, stage 2 ([facility]) S/P foot surgery, right 12/09/2019 11/20/2019Right foot reconstruction surgery with external fixation 12/02/2019 Right foot I and D Sleep apnea, obstructive does not use CPAP Tibia/fibula fracture Past Surgical History: Procedure Laterality Date APPENDECTOMY ARTHRODESIS SUBTALAR Right 05/01/2020 Procedure: RIGHT ANKLE ARTHRODESIS, SUBTALAR ARTHRODESIS RIGHT ANKLE, Bone [place] Graft From Right Fibula, Application of Splint; Surgeon: Alena Mora DPM; Location: [facility] OR; Service: Podiatry ARTHROPLASTY TOE Right 01/25/2019 Procedure: ARTHROPLASTY 2ND TOE RIGHT FOOT; Surgeon: Rosa M Robles DPM; Location: [facility] [place]; Service: Podiatry CABG 2017 CARDIAC SURGERY 2017 CABG tripe bypass CLOSED REDUCTION PERCUTANEOUS PINNING LOWER EXTREMITY N/A 12/02/2019 Procedure: ADJUSTMENT of EXTERNAL FIXATOR; Surgeon: Alena Mora DPM; Location: [facility]; Service: Podiatry CT COLONOSCOPY 02/24/[address] COLONOSCOPY 03/21/2023 CT COLONOSCOPY CYST REMOVED FROM CHEST N/A INCISION AND DRAINAGE FOOT AND ANKLE Right 12/02/2019 Procedure: RIGHT FOOT I&D; Surgeon: Alena Mora DPM; Location: [facility]; Service: Podiatry LIPOSUCTION METAL IN LEFT LEFT WRIST AND LEFT 5TH TOE Left ORIF FOOT FRACTURE Left 07/03/2013 5th metatarsal ORTHOPEDIC SURGERY WI AMPUTATION TOE INTERPHALANGEAL JOINT Left 06/29/2024 Procedure: left partial 2nd toe amputation; Surgeon: Alena Mora DPM; Location: [facility]; Service: Podiatry RECONSTRUCTION FOOT CHARCOT Right 11/20/2019 Procedure: RIGHT FOOT RECONSTRUCTION WITH APPLICATION OF CIRCULAR STATIC EXTERNAL FIXATION; Surgeon: Alena Mora DPM; Location: [facility]; Service: Podiatry RT FOOT SURGERY Right [place] N/A Physical Examination: BP (!) 148/81 Pulse 78 Temp 98 degrees F (36.7 degrees C) Resp 16 SpO2 90% General Appearance: Alert, cooperative, no distress, appears stated age. Podiatric Exam Vascular: DP and PT pulses are palpable. Capillary refill time is less than 3 secs to distal digits. Skin temperature is warm to cool from proximal tibial tuberosity to distal digit. + 2 pitting edema noted to bilateral lower extremities, improving Neurological: Gross sensation is intact. Protective sensation is absent using the [place] monofilament. Dermatologic: No open wounds or ulcerations to bilateral legs with exception of an open wound to the third toe on the right foot. Musculoskeletal: Ankle joint range of motion is intact. Compartments soft and compressible. No calf pain Diagnoses: 1. Skin ulcer of middle toe, right, with fat layer exposed ([facility]) 2. Diabetic peripheral neuropathy ([facility]) 3. PAD (peripheral artery disease) ([facility]) Media: Wound 06/29/24 1 Surgical Wound Second Toe Dorsal;Left (Active) Wound Image 07/28/24 1043 Wound Length (cm) 0.5 cm 07/28/24 1043 Wound Width (cm) 2 cm 07/28/24 1043 Wound Surface Area (cm^2) 1 cm^2 07/28/24 1043 Wound 07/14/24 Foot Left;Anterior (Active) Wound Image 07/28/24 1043 Wound Length (cm) 0.7 cm 07/28/24 1043 Wound Width (cm) 1 cm 07/28/24 1043 Wound Depth (cm) 0.1 cm 07/21/24 1008 Wound 07/21/24 Pre-tibial Left (Active) Wound Image 07/28/24 1042 Wound Length (cm) 1 cm 07/28/24 1042 Wound Width (cm) 0.5 cm 07/28/24 1042 Wound Depth (cm) 0.1 c (more content not included)...[facility] 10-06-2024 History of Present illness Narrative* Alena Mora DPM - 10/06/2024 12:43 PM ESTAssociated Order(s): Wound Debridement Post-Procedure Diagnose(s): PAD (peripheral artery disease) ([facility]); Diabetic peripheral neuropathy (HCC); Skin ulcer of middle toe, right, with fat layer exposed ([facility]) Images from the original note were not included. Established Patient Visit Alena Mora DPM Patient Name: Dyllan Huertas. . Date of : 1960, 63 y.o.. Gender: male. Subjective: Patient is a pleasant 63-year-old male who presents to clinic for follow-up evaluation of bilateralleg wounds, blisters, etc. Patient stated he has been taking his Bumex as instructed. Reports improvement. However, he states that he has wound to the right third toe and his home health care nurse has been dressing it with silver cell. Denies fevers, chills, nausea, vomiting, chest pain, shortnessof breath, or any other constitutional symptoms. 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) Non-pressure chronic ulcer of other part of left foot limited to breakdown of skin (HCC) Non-pressure chronic ulcer of other part of right foot with fat layer exposed (HCC) limited to breakdown of skin Obesity Overflow incontinence Peripheral neuropathy Pressure ulcer of right foot, stage 2 ([facility]) S/P foot surgery, right 12/09/2019 11/20/2019Right foot reconstruction surgery with external fixation 12/02/2019 Right foot I and D Sleep apnea, obstructive does not use CPAP Tibia/fibula fracture Past Surgical History: Procedure Laterality Date APPENDECTOMY ARTHRODESIS SUBTALAR Right 05/01/2020 Procedure: RIGHT ANKLE ARTHRODESIS, SUBTALAR ARTHRODESIS RIGHT ANKLE, Bone [place] Graft From RightFibula, Application of Splint; Surgeon: Alena Mora DPM; Location: [facility]; Service: Podiatry ARTHROPLASTY TOE Right 01/25/2019 Procedure: ARTHROPLASTY 2ND TOE RIGHT FOOT; Surgeon: Rosa M Robles DPM; [facility]; Service: Podiatry CABG 2017 CARDIAC SURGERY 2017 CABG tripe bypass CLOSED REDUCTION PERCUTANEOUS PINNING LOWER EXTREMITY N/A 12/02/2019 Procedure: ADJUSTMENT of EXTERNAL FIXATOR; Surgeon: Alena Mora DPM; Location: [facility]; Service: Podiatry CT COLONOSCOPY 02/24/[address] COLONOSCOPY 03/21/2023 CT COLONOSCOPY CYST REMOVED FROM CHEST N/A INCISION AND DRAINAGE FOOT AND ANKLE Right 12/02/2019 Procedure: RIGHT FOOT I&D; Surgeon: Alena Mora DPM; Location: [facility]; Service: Podiatry LIPOSUCTION METAL IN LEFT LEFT WRIST AND LEFT 5TH TOE Left ORIF FOOT FRACTURE Left 07/03/2013 5th metatarsal ORTHOPEDIC SURGERY WI AMPUTATION TOE INTERPHALANGEAL JOINT Left 06/29/2024 Procedure: left partial 2nd toe amputation; Surgeon: Alena Mora DPM; Location: [facility];Service: Podiatry RECONSTRUCTION FOOT CHARCOT Right 11/20/2019 Procedure: RIGHT FOOT RECONSTRUCTION WITH APPLICATION OF CIRCULAR STATIC EXTERNAL FIXATION; Surgeon: Alena Mora DPM; Location: [facility]; Service: Podiatry RT FOOT SURGERY Right SHARMILA JEONG N/A Physical Examination: BP (!) 148/81 Pulse 78 Temp 98 F (36.7 C) Resp 16 SpO2 90% General Appearance: Alert, cooperative, no distress, appears stated age. Podiatric Exam Vascular: DP and PT pulses are palpable. Capillary refill time is less than 3 secs to distal digits. Skin temperature is warm to cool from proximal tibial tuberosity to distal digit. + 2 pitting edema noted to bilateral lower extremities, improving Neurological: Gross sensation is intact. Protective sensation is absent using the [place] Asif monofilament. Dermatologic: No open wounds or ulcerations to bilateral legs with exception of an open wound to the third toe on the right foot. Musculoskeletal: Ankle joint range of motion is intact. Compartments soft and compressible. No calfpain Diagnoses: 1. Skin ulcer of middle toe, right, with fat layer exposed ([facility]) 2. Diabetic peripheral neuropathy ([facility]) 3. PAD (peripheral artery disease) ([facility]) Media: Wound 06/29/24 1 Surgical Wound Second Toe Dorsal;Left (Active) Wound Image 07/28/24 1043 Wound Length (cm) 0.5 cm 07/28/24 1043 Wound Width (cm) 2 cm 07/28/24 1043 Wound Surface Area (cm^2) 1 cm^2 07/28/24 1043 Wound 07/14/24 Foot Left;Anterior (Active) Wound Image 07/28/24 1043 Wound Length (cm) 0.7 cm 07/28/24 1043 Wound Width (cm) 1 cm 07/28/24 1043 Wound Depth (cm) 0.1 cm 07/21/24 1008 Wound 07/21/24 Pre-tibial Left (Active) Wound Image 07/28/24 1042 Wound Length (cm) 1 cm 07/28/24 1042 Wound Width (cm) 0.5 cm 07/28/24 1042 Wound Depth (cm) 0.1 cm 07/28/24 1042 Wound 06/29/24 1 Surgical Wound Second Toe Dorsal;Left (Active) Wound Image 07/28/24 1043 Wound Length (cm) 0.5 cm 07/28/24 1043 Wound Width (cm) 2 cm 07/28/24 1043 Wound Surface Area (cm^2) 1 cm^2 07/28/24 1043 Wound 07/07/24 Third Toe Dorsal;Right (Active) Wound Image 08/04/24 1011 Wound Length (cm) 0.2 cm 08/04/24 1011 Wound Width (cm) 0.5 cm 08/04/24 1011 Wound Depth (cm) 0.1 cm 07/28/24 1044 Wound 07/14/24 Foot Left;Anterior (Active) Wound Image 08/04/24 1012 Wound Length (cm) 0.7 cm 08/04/24 1012 Wound Width (cm) 1 cm 08/04/24 1012 Wound Depth (cm) 0.1 cm 08/04/24 1012 Wound 07/21/24 Pre-tibial Left (Active) Wound Image 08/04/24 1011 Wound Length (cm) 0.5 cm 08/04/24 1011 Wound Width (cm) 0.2 cm 08/04/24 1011 Wound Depth (cm) 0.1 cm 08/04/24 1011 Wound 06/29/24 1 Surgical Wound Second Toe Dorsal;Left (Active) Wound Image 08/11/24 0936 Wound Length (cm) 1 cm 08/11/24 0936 Wound Width (cm) 0.9 cm 08/11/24 0936 Wound Depth (cm) 0.1 cm 08/11/24 0936 Wound 07/14/24 Foot Left;Anterior (Active) Wound Image 08/11/24 0937 Wound Length (cm) 0.6 cm 08/11/24 0937 Wound Width (cm) 1 cm 08/11/24 0937 Wound Depth (cm) 0.1 cm 08/11/24 0937 Wound 07/21/24 Pre-tibial Left (Active) Wound Image 08/11/24 0935 Wound Length (cm) 2 cm 08/11/24 0935 Wound Width (cm) 2.2 cm 08/11/24 0935 Wound Depth (cm) 0.1 cm 08/11/24 0935 Wound 06/29/24 1 Surgical Wound Second Toe Dorsal;Left (Active) Wound Image 08/11/24 0936 Wound Length (cm) 1 cm 08/11/24 0936 Wound Width (cm) 0.9 cm 08/11/24 0936 Wound Depth (cm) 0.1 cm 08/11/24 0936 Wound 07/14/24 Foot Left;Anterior (Active) Wound Image 08/18/24 0850 Wound Length (cm) 0.5 cm 08/18/24 0850 Wound Width (cm) 0.7 cm 08/18/24 0850 Wound Depth (cm) 0.1 cm 08/18/24 0850 Wound 07/21/24 Pre-tibial Left (Active) Wound Image 08/18/24 0850 Wound Length (cm) 2.3 cm 08/18/24 0850 Wound Width (cm) 2.3 cm 08/18/24 0850 Wound Depth (cm) 0.1 cm 08/18/24 0850 Wound 06/29/24 1 Surgical Wound Second Toe Dorsal;Left (Active) Wound Image 09/08/24 1030 Wound Length (cm) 1 cm 08/11/24 0936 Wound Width (cm) 0.9 cm 08/11/24 0936 Wound Depth (cm) 0.1 cm 08/11/24 0936 Wound 07/07/24 Third Toe Dorsal;Right (Active) Wound Image 08/25/24 0854 Wound Length (cm) 0.3 cm 08/11/24 0938 Wound Width (cm) 0.3 cm 08/11/24 0938 Wound Depth (cm) 0.1 cm 08/11/24 0938 Wound 07/21/24 Pre-tibial Left (Active) Wound Image 09/08/24 1029 Wound Length (cm) 2.3 cm 08/18/24 0850 Wound Width (cm) 1 cm 09/08/24 1029 Wound Depth (cm) 0.1 cm 08/18/24 0850 Wound 08/25/24 Lower Leg Left;Lateral (Active) Wound Image 09/08/24 1028 Wound Length (cm) 1.5 cm 09/08/24 1028 Wound Width (cm) 3 cm 09/08/24 1028 Wound Depth (cm) 0.1 cm 08/25/24 0852 Wound 09/15/24 Leg Left;Medial (Active) Wound Image 09/15/24 1023 Wound Length (cm) 7 cm 09/15/24 1023 Wound Width (cm) 0.8 cm 09/15/24 1023 Wound Depth (cm) 0.1 cm 09/15/24 1023 Healed. Wound 09/22/24 Third Toe Dorsal;Right (Active) Wound Image 10/06/24 0921 Wound Length (cm) 0.5 cm 10/06/24 0921 Wound Width (cm) 0.2 cm 10/06/24 0921 Wound Depth (cm) 0.1 cm 09/22/24 0908 Assessment/Plan: Patient was seen and evaluated. Discussed all clinical findings Patient's overall bilateral lower extremity edema has improved significantly since the last clinic visit. No open wounds or blisters to bilateral legs with exception of a new wound to the right thirdtoe. This wound was in need of excisional debridement to remove nonviable soft tissue and biofilm. See procedure below. Following debridement, applied silver cell, 4 x 4, Kerlix and light Zechariah bandage. Patient is to maintain edema control to bilateral legs by taking Bumex and maintaining Zechariah compression or Tubigrip to bilateral legs. Follow-up in 2 weeks for reevaluation. All questions were answered to patient satisfaction. Patient understands to call with any questionsor concerns. This note was partially created using voice recognition software and is inherently subject to errors including those of syntax and sound-alike substitutions which may escape proofreading. In such instances, original meaning may be extrapolated by contextual derivation. Alena Mora DPM, MS Podiatric Physician & Surgeon Wound Debridement Performed by: Alena Mora DPM Authorized by: Alena Mora DPM Consent Consent obtained? verbal Consent given by: patient Risks discussed? procedural risks discussed Immediately prior to the procedure a time out was called and the performing provider verified the correct patient, procedure, equipment, support service tech, and site/side marked as required. Debridement Details Performed by: physician Debridement type: surgical Level of debridement: subcutaneous tissue Post-debridement measurements Length (cm): 1 Width (cm): 1.2 Depth (cm): 0.2 Percent debrided: 100% Surface Area (cm^2): 1.2 Area Debrided (cm^2): 1.2 Volume (cm^3): 0.24 Tissue and other material debrided: subcutaneous tissue Devitalized tissue debrided: biofilm, callus, fibrin and slough Instrument(s) utilized: curette Bleeding: small Hemostasis obtained with: pressure Response to treatment: procedure was tolerated well documented in this [id number] Instructions* Patient Instructions* Lin Justice RN - 10/06/2024 9:54 AM EST 1. Vaseline to bilateral legs 2. Noted silver cell to the right third toe, 4 x 4 3. Kerlix and Zechariah bandage to bilateral lower extremities Frequency: Apply once every other day Follow up: 2 week(s) documented in this [id number] Instructions* Patient Instructions* Kyung Hui RN - 09/22/2024 9:34 AM EST Silvercel to open wound, 4 x 4, Kerlix, Zechariah bandage to the right lower extremity Zechariah bandage to left lower extremity Frequency: Apply once every other day Follow up: 2 week(s) documented in this [id number] NoteEstablished Patient Visit Alena Mora DPM Patient Name: Dyllan Huertas. . Date of : 1960, 63 y.o.. Gender: male. Subjective: Patient is a pleasant 63-year-old male who presents to clinic concerned about blister formation to the right leg that was later torn off. He has been noticing drainage from the right leg. Patient stated he is unsure why this happened given that he has been taking his Bumex. Denies fevers, chills, nausea, vomiting, chest pain, shortness of breath, or any other constitutional symptoms. Past Medical History: Diagnosis Date Acquired equinus deformity of right foot Acquired hammer toe of right foot Angina pectoris with documented spasm (HCC) Calluse Cellulitis of left toe Charcot's joint, right ankle and foot Chronic osteomyelitis with draining sinus, right ankle and foot ([facility]) Complication of external fixation device with internal components (HCC) Coronary artery disease Dehiscence of incision Diabetes mellitus, type 2 (HCC) Dystrophic nail Edema Effusion of ankle and foot joint Fracture of metatarsal, closed Fungal toenail infection Hyperlipidemia Hypertension Hypothyroidism 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) Non-pressure chronic ulcer of other part of left foot limited to breakdown of skin (HCC) Non-pressure chronic ulcer of other part of right foot with fat layer exposed (HCC) limited to breakdown of skin Obesity Overflow incontinence Peripheral neuropathy Pressure ulcer of right foot, stage 2 ([facility]) S/P foot surgery, right 12/09/2019 11/20/2019Right foot reconstruction surgery with external fixation 12/02/2019 Right foot I and D Sleep apnea, obstructive does not use CPAP Tibia/fibula fracture Past Surgical History: Procedure Laterality Date APPENDECTOMY ARTHRODESIS SUBTALAR Right 05/01/2020 Procedure: RIGHT ANKLE ARTHRODESIS, SUBTALAR ARTHRODESIS RIGHT ANKLE, Bone [place] Graft From Right Fibula, Application of Splint; Surgeon: Alena Mora DPM; [facility]; Service: Podiatry ARTHROPLASTY TOE Right 01/25/2019 Procedure: ARTHROPLASTY 2ND TOE RIGHT FOOT; Surgeon: Rosa M Robles DPM; [facility]; Service: Podiatry CABG 2017 CARDIAC SURGERY 2017 CABG tripe bypass CLOSED REDUCTION PERCUTANEOUS PINNING LOWER EXTREMITY N/A 12/02/2019 Procedure: ADJUSTMENT of EXTERNAL FIXATOR; Surgeon: Alena Mora DPM; [facility]; Service: Podiatry CT COLONOSCOPY 02/24/[address] COLONOSCOPY 03/21/2023 CT COLONOSCOPY CYST REMOVED FROM CHEST N/A INCISION AND DRAINAGE FOOT AND ANKLE Right 12/02/2019 Procedure: RIGHT FOOT I&D; Surgeon: Alena Mora DPM; [facility]; Service: Podiatry LIPOSUCTION METAL IN LEFT LEFT WRIST AND LEFT 5TH TOE Left ORIF FOOT FRACTURE Left 07/03/2013 5th metatarsal ORTHOPEDIC SURGERY [place] AMPUTATION TOE INTERPHALANGEAL JOINT Left 06/29/2024 Procedure: left partial 2nd toe amputation; Surgeon: Aelna Mora DPM; [facility]; Service: Podiatry RECONSTRUCTION FOOT CHARCOT Right 11/20/2019 Procedure: RIGHT FOOT RECONSTRUCTION WITH APPLICATION OF CIRCULAR STATIC EXTERNAL FIXATION; Surgeon: Alena Mora DPM; [facility]; Service: Podiatry RT FOOT SURGERY Right SHARMILA JEONG N/A Physical Examination: BP 132/83 Pulse 79 Temp 98 degrees F (36.7 degrees C) (Infrared) Resp 18 SpO2 91% General Appearance: Alert, cooperative, no distress, appears stated age. Podiatric Exam Vascular: DP and PT pulses are palpable. Capillary refill time is less than 3 secs to distal digits. Skin temperature is warm to cool from proximal tibial tuberosity to distal digit. + 2 pitting edema noted to bilateral lower extremities, improving Neurological: Gross sensation is intact. Protective sensation is absent using the [place] Asif monofilament. Dermatologic: The previously noted wound to the medial proximal left leg secondary to tape has now epithelialized. Any new skin partial-thickness wound noted to the posterior right leg secondary to blister is noted. Musculoskeletal: Ankle joint range of motion is intact. Muscle strength is 5/5 to dorsiflexors, plantar flexors, inverters and everters. Compartments soft and compressible. No calf pain Diagnoses: 1. Blister of right lower extremity, initial encounter 2. Skin ulcer of right lower leg with fat layer exposed (HCC) Media: Wound 06/29/24 1 Surgical Wound Second Toe Dorsal;Left (Active) Wound Image 07/28/24 1043 Wound Length (cm) 0.5 cm 07/28/24 1043 Wound Width (cm) 2 cm 07/28/24 1043 Wound Surface Area (cm^2) 1 cm^2 07/28/24 1043 Wound 07/14/24 Foot Left;Anterior (Active) Wound Image 07/28/24 1043 Wound Length (cm) 0.7 cm 07/28/24 1043 Wound Width (cm) 1 cm 07/28/24 1043 Wound Depth (cm) 0.1 cm 07/21/24 1008 Wound 07/21/24 Pre-tibial Left (Active) Wound Image 07/28/24 1042 Wound Doreen (more content not included)...[facility]12-20-2024 History of Present illness Narrative* Alena Mora DPM - 09/22/2024 9:32 AM EST Images from the original note were not included. Established Patient Visit Alena Mora DPM Patient Name: Dyllan Huertas. . Date of : 1960, 63 y.o.. Gender: male. Subjective: Patient is a pleasant 63-year-old male who presents to clinic concerned about blister formation to the right leg that was later torn off. He has been noticing drainage from the right leg. Patient stated he is unsure why this happened given that he has been taking his Bumex. Denies fevers, chills, nausea, vomiting, chest pain, shortness of breath, or any other constitutional symptoms. Past Medical History: Diagnosis Date Acquired equinus deformity of right foot Acquired hammer toe of right foot Angina pectoris with documented spasm ([facility]) Calluse Cellulitis of left toe Charcot's joint, right ankle and foot Chronic osteomyelitis with draining sinus, right ankle and foot ([facility]) Complication of external fixation device with internal components ([facility]) Coronary artery disease Dehiscence of incision Diabetes mellitus, type 2 ([facility]) Dystrophic nail Edema Effusion of ankle and foot joint Fracture of metatarsal, closed Fungal toenail infection Hyperlipidemia Hypertension Hypothyroidism 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 ([facility]) Non-pressure chronic ulcer of other part of left foot limited to breakdown of skin ([facility]) Non-pressure chronic ulcer of other part of right foot with fat layer exposed ([facility]) limited to breakdown of skin Obesity Overflow incontinence Peripheral neuropathy Pressure ulcer of right foot, stage 2 ([facility]) S/P foot surgery, right 12/09/2019 11/20/2019Right foot reconstruction surgery with external fixation 12/02/2019 Right foot I and D Sleep apnea, obstructive does not use CPAP Tibia/fibula fracture Past Surgical History: Procedure Laterality Date APPENDECTOMY ARTHRODESIS SUBTALAR Right 05/01/2020 Procedure: RIGHT ANKLE ARTHRODESIS, SUBTALAR ARTHRODESIS RIGHT ANKLE, Bone [place] Graft From RightFibula, Application of Splint; Surgeon: Alena Mora DPM; Location: [facility] OR; Service: Podiatry ARTHROPLASTY TOE Right 01/25/2019 Procedure: ARTHROPLASTY 2ND TOE RIGHT FOOT; Surgeon: Rosa M Robles DPM; Location: [facility] [place] [facility] [place]; Service: Podiatry CABG 2017 CARDIAC SURGERY 2017 CABG tripe bypass CLOSED REDUCTION PERCUTANEOUS PINNING LOWER EXTREMITY N/A 12/02/2019 Procedure: ADJUSTMENT of EXTERNAL FIXATOR; Surgeon: Alena Mora DPM; Location: [facility]; Service: Podiatry CT COLONOSCOPY 02/24/[address] COLONOSCOPY 03/21/2023 CT COLONOSCOPY CYST REMOVED FROM CHEST N/A INCISION AND DRAINAGE FOOT AND ANKLE Right 12/02/2019 Procedure: RIGHT FOOT I&D; Surgeon: Alena Mora DPM; [facility]: [facility]; Service: Podiatry LIPOSUCTION METAL IN LEFT LEFT WRIST AND LEFT 5TH TOE Left ORIF FOOT FRACTURE Left 07/03/2013 5th metatarsal ORTHOPEDIC SURGERY WI AMPUTATION TOE INTERPHALANGEAL JOINT Left 06/29/2024 Procedure: left partial 2nd toe amputation; Surgeon: Alena Mora DPM; [facility]: [facility];Service: Podiatry RECONSTRUCTION FOOT CHARCOT Right 11/20/2019 Procedure: RIGHT FOOT RECONSTRUCTION WITH APPLICATION OF CIRCULAR STATIC EXTERNAL FIXATION; Surgeon: Alena Mora DPM; [facility]; Service: Podiatry RT FOOT SURGERY Right [place] N/A Physical Examination: BP 132/83 Pulse 79 Temp 98 F (36.7 C) (Infrared) Resp 18 SpO2 91% General Appearance: Alert, cooperative, no distress, appears stated age. Podiatric Exam Vascular: DP and PT pulses are palpable. Capillary refill time is less than 3 secs to distal digits. Skin temperature is warm to cool from proximal tibial tuberosity to distal digit. + 2 pitting edema noted to bilateral lower extremities, improving Neurological: Gross sensation is intact. Protective sensation is absent using the [place] Asif monofilament. Dermatologic: The previously noted wound to the medial proximal left leg secondary to tape has now epithelialized. Any new skin partial-thickness wound noted to the posterior right leg secondary to blister is noted. Musculoskeletal: Ankle joint range of motion is intact. Muscle strength is 5/5 to dorsiflexors, plantar flexors, inverters and everters. Compartments soft and compressible. No calf pain Diagnoses: 1. Blister of right lower extremity, initial encounter 2. Skin ulcer of right lower leg with fat layer exposed (HCC) Media: Wound 06/29/24 1 Surgical Wound Second Toe Dorsal;Left (Active) Wound Image 07/28/24 1043 Wound Length (cm) 0.5 cm 07/28/24 1043 Wound Width (cm) 2 cm 07/28/24 1043 Wound Surface Area (cm^2) 1 cm^2 07/28/24 1043 Wound 07/14/24 Foot Left;Anterior (Active) Wound Image 07/28/24 1043 Wound Length (cm) 0.7 cm 07/28/24 1043 Wound Width (cm) 1 cm 07/28/24 1043 Wound Depth (cm) 0.1 cm 07/21/24 1008 Wound 07/21/24 Pre-tibial Left (Active) Wound Image 07/28/24 1042 Wound Length (cm) 1 cm 07/28/24 1042 Wound Width (cm) 0.5 cm 07/28/24 1042 Wound Depth (cm) 0.1 cm 07/28/24 1042 Wound 06/29/24 1 Surgical Wound Second Toe Dorsal;Left (Active) Wound Image 07/28/24 1043 Wound Length (cm) 0.5 cm 07/28/24 1043 Wound Width (cm) 2 cm 07/28/24 1043 Wound Surface Area (cm^2) 1 cm^2 07/28/24 1043 Wound 07/07/24 Third Toe Dorsal;Right (Active) Wound Image 08/04/24 1011 Wound Length (cm) 0.2 cm 08/04/24 1011 Wound Width (cm) 0.5 cm 08/04/24 1011 Wound Depth (cm) 0.1 cm 07/28/24 1044 Wound 07/14/24 Foot Left;Anterior (Active) Wound Image 08/04/24 1012 Wound Length (cm) 0.7 cm 08/04/24 1012 Wound Width (cm) 1 cm 08/04/24 1012 Wound Depth (cm) 0.1 cm 08/04/24 1012 Wound 07/21/24 Pre-tibial Left (Active) Wound Image 08/04/24 1011 Wound Length (cm) 0.5 cm 08/04/24 1011 Wound Width (cm) 0.2 cm 08/04/24 1011 Wound Depth (cm) 0.1 cm 08/04/24 1011 Wound 06/29/24 1 Surgical Wound Second Toe Dorsal;Left (Active) Wound Image 08/11/24 0936 Wound Length (cm) 1 cm 08/11/24 0936 Wound Width (cm) 0.9 cm 08/11/24 0936 Wound Depth (cm) 0.1 cm 08/11/24 0936 Wound 07/14/24 Foot Left;Anterior (Active) Wound Image 08/11/24 0937 Wound Length (cm) 0.6 cm 08/11/24 0937 Wound Width (cm) 1 cm 08/11/24 0937 Wound Depth (cm) 0.1 cm 08/11/24 0937 Wound 07/21/24 Pre-tibial Left (Active) Wound Image 08/11/24 0935 Wound Length (cm) 2 cm 08/11/24 0935 Wound Width (cm) 2.2 cm 08/11/24 0935 Wound Depth (cm) 0.1 cm 08/11/24 0935 Wound 06/29/24 1 Surgical Wound Second Toe Dorsal;Left (Active) Wound Image 08/11/24 0936 Wound Length (cm) 1 cm 08/11/24 0936 Wound Width (cm) 0.9 cm 08/11/24 0936 Wound Depth (cm) 0.1 cm 08/11/24 0936 Wound 07/14/24 Foot Left;Anterior (Active) Wound Image 08/18/24 0850 Wound Length (cm) 0.5 cm 08/18/24 0850 Wound Width (cm) 0.7 cm 08/18/24 0850 Wound Depth (cm) 0.1 cm 08/18/24 0850 Wound 07/21/24 Pre-tibial Left (Active) Wound Image 08/18/24 0850 Wound Length (cm) 2.3 cm 08/18/24 0850 Wound Width (cm) 2.3 cm 08/18/24 0850 Wound Depth (cm) 0.1 cm 08/18/24 0850 Wound 06/29/24 1 Surgical Wound Second Toe Dorsal;Left (Active) Wound Image 09/08/24 1030 Wound Length (cm) 1 cm 08/11/24 0936 Wound Width (cm) 0.9 cm 08/11/24 0936 Wound Depth (cm) 0.1 cm 08/11/24 0936 Wound 07/07/24 Third Toe Dorsal;Right (Active) Wound Image 08/25/24 0854 Wound Length (cm) 0.3 cm 08/11/24 0938 Wound Width (cm) 0.3 cm 08/11/24 0938 Wound Depth (cm) 0.1 cm 08/11/24 0938 Wound 07/21/24 Pre-tibial Left (Active) Wound Image 09/08/24 1029 Wound Length (cm) 2.3 cm 08/18/24 0850 Wound Width (cm) 1 cm 09/08/24 1029 Wound Depth (cm) 0.1 cm 08/18/24 0850 Wound 08/25/24 Lower Leg Left;Lateral (Active) Wound Image 09/08/24 1028 Wound Length (cm) 1.5 cm 09/08/24 1028 Wound Width (cm) 3 cm 09/08/24 1028 Wound Depth (cm) 0.1 cm 08/25/24 0852 Wound 09/15/24 Leg Left;Medial (Active) Wound Image 09/15/24 1023 Wound Length (cm) 7 cm 09/15/24 1023 Wound Width (cm) 0.8 cm 09/15/24 1023 Wound Depth (cm) 0.1 cm 09/15/24 1023 Healed. Wound 09/15/24 Leg Left;Medial (Active) Wound Image 09/22/24 0906 Wound Length (cm) 7 cm 09/15/24 1023 Wound Width (cm) 0.8 cm 09/15/24 1023 Wound Depth (cm) 0.1 cm 09/15/24 1023 Wound Surface Area (cm^2) 5.6 cm^2 09/15/24 1023 Wound Volume (cm^3) 0.56 cm^3 09/15/24 1023 Area % Change 0 09/15/24 1023 Drainage Amount None 09/22/24 0906 Drainage Description Serosanguineous 09/15/24 1023 Odor None 09/15/24 1023 Wound Bed Characteristics Epitheliaization 09/22/24 0906 Angeli-wound Assessment Intact 09/22/24 0906 Cleansed Soap and water 09/22/24 0906 Compression Dressing Zechariah wrap 09/15/24 1049 Wound 09/22/24 Third Toe Dorsal;Right (Active) Wound Image 09/22/24 0908 Wound Length (cm) 1 cm 09/22/24 0908 Wound Width (cm) 1 cm 09/22/24 0908 Wound Depth (cm) 0.1 cm 09/22/24 0908 Wound 09/22/24 Calf Right (Active) Wound Image 09/22/24 0909 Wound Length (cm) 5.5 cm 09/22/24 09 Wound Width (cm) 6 cm 09/22/24 09 Wound Depth (cm) 0.1 cm 09/22/24908 Assessment/Plan: Patient was seen and evaluated. Discussed all clinical findings Patient's overall bilateral lower extremity edema has improved since the last clinic visit. However, patient has sustained a new blister to the posterior right leg that was later torn off. Patient also has a ripped toenail off of his right third toe due to trauma. There is no surrounding erythema, edema or any acute signs of infection today. Given that these wounds are superficial, no need for excisional debridement. Applied silver cell to the open wound areas to the right leg and the right third toe. Instructed the patient to change dressing once every other day via home health care. Patient is to continue taking his Bumex. Follow-up in 2 weeks for reevaluation. All questions were answered to patient satisfaction. Patient understands to call with any questionsor concerns. This note was partially created using voice recognition software and is inherently subject to errors including those of syntax and sound-alike substitutions which may escape proofreading. In such instances, original meaning may be extrapolated by contextual derivation. Alena Mora DPM, MS Podiatric Physician & Surgeon documented in this [id number] Instructions* Patient Instructions* Lin Justice RN - 09/15/2024 10:49 AM EST Silvercel to medial left leg wound, 4 x 4, Kerlix and Zechariah bandage. No Steri- Strips or tape Frequency: Apply once every other day Follow up: 1 week(s) documented in this [id number] NoteEstablished Patient Visit Alena Mora DPM Patient Name: Dyllan Huertas. . Date of : 1960, 63 y.o.. Gender: male. Subjective: Patient is a pleasant 63-year-old male who presents to clinic for follow-up evaluation status post left partial second toe amputation secondary to osteomyelitis. Patient has other open wounds on left foot. Patient has been receiving dressing changes by home health care. Patient believes that his wounds have primarily healed with exception of a new wound from Steri-Strips on his medial left leg. Denies fevers, chills, nausea, vomiting, chest pain, shortness of breath, or any other constitutional symptoms. Past Medical History: Diagnosis Date Acquired equinus deformity of right foot Acquired hammer toe of right foot Angina pectoris with documented spasm ([facility]) Calluse Cellulitis of left toe Charcot's joint, right ankle and foot Chronic osteomyelitis with draining sinus, right ankle and foot ([facility]) Complication of external fixation device with internal components ([facility]) Coronary artery disease Dehiscence of incision Diabetes mellitus, type 2 ([facility]) Dystrophic nail Edema Effusion of ankle and foot joint Fracture of metatarsal, closed Fungal toenail infection Hyperlipidemia Hypertension Hypothyroidism 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 ([facility]) Non-pressure chronic ulcer of other part of left foot limited to breakdown of skin ([facility]) Non-pressure chronic ulcer of other part of right foot with fat layer exposed ([facility]) limited to breakdown of skin Obesity Overflow incontinence Peripheral neuropathy Pressure ulcer of right foot, stage 2 ([facility]) S/P foot surgery, right 12/09/2019 11/20/2019Right foot reconstruction surgery with external fixation 12/02/2019 Right foot I and D Sleep apnea, obstructive does not use CPAP Tibia/fibula fracture Past Surgical History: Procedure Laterality Date APPENDECTOMY ARTHRODESIS SUBTALAR Right 05/01/2020 Procedure: RIGHT ANKLE ARTHRODESIS, SUBTALAR ARTHRODESIS RIGHT ANKLE, Bone [place] Graft From Right Fibula, Application of Splint; Surgeon: Alena Mora DPM; Location: [facility]; Service: Podiatry ARTHROPLASTY TOE Right 01/25/2019 Procedure: ARTHROPLASTY 2ND TOE RIGHT FOOT; Surgeon: Rosa M Robles DPM; [facility] [facility]; Service: Podiatry CABG 2017 CARDIAC SURGERY 2017 CABG tripe bypass CLOSED REDUCTION PERCUTANEOUS PINNING LOWER EXTREMITY N/A 12/02/2019 Procedure: ADJUSTMENT of EXTERNAL FIXATOR; Surgeon: Alena Mora DPM; Location: [facility]; Service: Podiatry CT COLONOSCOPY 02/24/[address] COLONOSCOPY 03/21/2023 CT COLONOSCOPY CYST REMOVED FROM CHEST N/A INCISION AND DRAINAGE FOOT AND ANKLE Right 12/02/2019 Procedure: RIGHT FOOT I&D; Surgeon: Alena Mora DPM; Location: [facility]; Service: Podiatry LIPOSUCTION METAL IN LEFT LEFT WRIST AND LEFT 5TH TOE Left ORIF FOOT FRACTURE Left 07/03/2013 5th metatarsal ORTHOPEDIC SURGERY [place] AMPUTATION TOE INTERPHALANGEAL JOINT Left 06/29/2024 Procedure: left partial 2nd toe amputation; Surgeon: Alena Mora DPM; Location: [facility]; Service: Podiatry RECONSTRUCTION FOOT CHARCOT Right 11/20/2019 Procedure: RIGHT FOOT RECONSTRUCTION WITH APPLICATION OF CIRCULAR STATIC EXTERNAL FIXATION; Surgeon: Alena Mora DPM; Location: [facility]; Service: Podiatry RT FOOT SURGERY Right TUMMY TUCK N/A Physical Examination: BP 106/64 Pulse 91 Temp 97.6 degrees F (36.4 degrees C) Resp 16 SpO2 93% General Appearance: Alert, cooperative, no distress, appears stated age. Podiatric Exam Vascular: DP and PT pulses are palpable. Capillary refill time is less than 3 secs to distal digits. Skin temperature is warm to cool from proximal tibial tuberosity to distal digit. + 2 pitting edema noted to bilateral lower extremities, improving Neurological: Gross sensation is intact. Protective sensation is absent using the [place] Asif monofilament. Dermatologic: All wounds have healed with exception of a new wound to the medial proximal left leg secondary to tape. Musculoskeletal: Ankle joint range of motion is intact. Muscle strength is 5/5 to dorsiflexors, plantar flexors, inverters and everters. Compartments soft and compressible. No calf pain Diagnoses: 1. Skin ulcer of second toe of left foot with fat layer exposed (HCC) 2. Chronic foot ulcer with fat layer exposed, left (HCC) 3. Bilateral lower extremity edema Media: Wound 06/29/24 1 Surgical Wound Second Toe Dorsal;Left (Active) Wound Image 07/28/24 1043 Wound Length (cm) 0.5 cm 07/28/24 1043 Wound Width (cm) 2 cm 07/28/24 1043 Wound Surface Area (cm^2) 1 cm^2 07/28/24 1043 Wound 10/11/24 Foot Left;Anterior (Active) Wound Image 07/28/24 1043 Wound Length (cm) 0.7 cm 07/28/24 1043 Wound Width (cm) 1 cm 07/28/24 1043 Wound Depth (cm) 0.1 cm 07/21/24 1008 Wound 07/21/24 Pr (more content not included)...[facility]12-13-2024 History of Present illness Narrative* Alena Mora DPM - 09/15/2024 10:45 AM EST Images from the original note were not included. Established Patient Visit Alena Mora DPM Patient Name: Dyllan Huertas. . Date of : 1960, 63 y.o.. Gender: male. Subjective: Patient is a pleasant 63-year-old male who presents to clinic for follow-up evaluation status post left partial second toe amputation secondary to osteomyelitis. Patient has other open wounds on leftfoot. Patient has been receiving dressing changes by home health care. Patient believes that his wounds have primarily healed with exception of a new wound from Steri-Strips on his medial left leg. Denies fevers, chills, nausea, vomiting, chest pain, shortness of breath, or any other constitutionalsymptoms. Past Medical History: Diagnosis Date Acquired equinus deformity of right foot Acquired hammer toe of right foot Angina pectoris with documented spasm ([facility]) Calluse Cellulitis of left toe Charcot's joint, right ankle and foot Chronic osteomyelitis with draining sinus, right ankle and foot ([facility]) Complication of external fixation device with internal components ([facility]) Coronary artery disease Dehiscence of incision Diabetes mellitus, type 2 ([facility]) Dystrophic nail Edema Effusion of ankle and foot joint Fracture of metatarsal, closed Fungal toenail infection Hyperlipidemia Hypertension Hypothyroidism 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) Non-pressure chronic ulcer of other part of left foot limited to breakdown of skin (HCC) Non-pressure chronic ulcer of other part of right foot with fat layer exposed ([facility]) limited to breakdown of skin Obesity Overflow incontinence Peripheral neuropathy Pressure ulcer of right foot, stage 2 ([facility]) S/P foot surgery, right 12/09/2019 11/20/2019Right foot reconstruction surgery with external fixation 12/02/2019 Right foot I and D Sleep apnea, obstructive does not use CPAP Tibia/fibula fracture Past Surgical History: Procedure Laterality Date APPENDECTOMY ARTHRODESIS SUBTALAR Right 05/01/2020 Procedure: RIGHT ANKLE ARTHRODESIS, SUBTALAR ARTHRODESIS RIGHT ANKLE, Bone [place] Graft From RightFibula, Application of Splint; Surgeon: Alena Mora DPM; Location: [facility]; Service: Podiatry ARTHROPLASTY TOE Right 01/25/2019 Procedure: ARTHROPLASTY 2ND TOE RIGHT FOOT; Surgeon: Rosa M Robles DPM; [facility] [facility]; Service: Podiatry CABG 2017 CARDIAC SURGERY 2017 CABG tripe bypass CLOSED REDUCTION PERCUTANEOUS PINNING LOWER EXTREMITY N/A 12/02/2019 Procedure: ADJUSTMENT of EXTERNAL FIXATOR; Surgeon: Alena Mora DPM; Location: [facility]; Service: Podiatry CT COLONOSCOPY 02/24/[address] COLONOSCOPY 03/21/2023 CT COLONOSCOPY CYST REMOVED FROM CHEST N/A INCISION AND DRAINAGE FOOT AND ANKLE Right 12/02/2019 Procedure: RIGHT FOOT I&D; Surgeon: Alena Mora DPM; Location: [facility]; Service: Podiatry LIPOSUCTION METAL IN LEFT LEFT WRIST AND LEFT 5TH TOE Left ORIF FOOT FRACTURE Left 07/03/2013 5th metatarsal ORTHOPEDIC SURGERY [place] AMPUTATION TOE INTERPHALANGEAL JOINT Left 06/29/2024 Procedure: left partial 2nd toe amputation; Surgeon: Alena Mora DPM; Location: [facility];Service: Podiatry RECONSTRUCTION FOOT CHARCOT Right 11/20/2019 Procedure: RIGHT FOOT RECONSTRUCTION WITH APPLICATION OF CIRCULAR STATIC EXTERNAL FIXATION; Surgeon: Alena Mora DPM; [facility]: [facility]; Service: Podiatry RT FOOT SURGERY Right TUMMY TUCK N/A Physical Examination: BP 106/64 Pulse 91 Temp 97.6 F (36.4 C) Resp 16 SpO2 93% General Appearance: Alert, cooperative, no distress, appears stated age. Podiatric Exam Vascular: DP and PT pulses are palpable. Capillary refill time is less than 3 secs to distal digits. Skin temperature is warm to cool from proximal tibial tuberosity to distal digit. + 2 pitting edema noted to bilateral lower extremities, improving Neurological: Gross sensation is intact. Protective sensation is absent using the [place] Asif monofilament. Dermatologic: All wounds have healed with exception of a new wound to the medial proximal left leg secondary to tape. Musculoskeletal: Ankle joint range of motion is intact. Muscle strength is 5/5 to dorsiflexors, plantar flexors, inverters and everters. Compartments soft and compressible. No calf pain Diagnoses: 1. Skin ulcer of second toe of left foot with fat layer exposed (HCC) 2. Chronic foot ulcer with fat layer exposed, left (HCC) 3. Bilateral lower extremity edema Media: Wound 06/29/24 1 Surgical Wound Second Toe Dorsal;Left (Active) Wound Image 07/28/24 1043 Wound Length (cm) 0.5 cm 07/28/24 1043 Wound Width (cm) 2 cm 07/28/24 1043 Wound Surface Area (cm^2) 1 cm^2 07/28/24 1043 Wound 07/14/24 Foot Left;Anterior (Active) Wound Image 07/28/24 1043 Wound Length (cm) 0.7 cm 07/28/24 1043 Wound Width (cm) 1 cm 07/28/24 1043 Wound Depth (cm) 0.1 cm 07/21/24 1008 Wound 07/21/24 Pre-tibial Left (Active) Wound Image 07/28/24 1042 Wound Length (cm) 1 cm 07/28/24 1042 Wound Width (cm) 0.5 cm 07/28/24 1042 Wound Depth (cm) 0.1 cm 07/28/24 1042 Wound 06/29/24 1 Surgical Wound Second Toe Dorsal;Left (Active) Wound Image 07/28/24 1043 Wound Length (cm) 0.5 cm 07/28/24 1043 Wound Width (cm) 2 cm 07/28/24 1043 Wound Surface Area (cm^2) 1 cm^2 07/28/24 1043 Wound 07/07/24 Third Toe Dorsal;Right (Active) Wound Image 08/04/24 1011 Wound Length (cm) 0.2 cm 08/04/24 1011 Wound Width (cm) 0.5 cm 08/04/24 1011 Wound Depth (cm) 0.1 cm 07/28/24 1044 Wound 07/14/24 Foot Left;Anterior (Active) Wound Image 08/04/24 1012 Wound Length (cm) 0.7 cm 08/04/24 1012 Wound Width (cm) 1 cm 08/04/24 1012 Wound Depth (cm) 0.1 cm 08/04/24 1012 Wound 07/21/24 Pre-tibial Left (Active) Wound Image 08/04/24 1011 Wound Length (cm) 0.5 cm 08/04/24 1011 Wound Width (cm) 0.2 cm 08/04/24 1011 Wound Depth (cm) 0.1 cm 08/04/24 1011 Wound 06/29/24 1 Surgical Wound Second Toe Dorsal;Left (Active) Wound Image 08/11/24 0936 Wound Length (cm) 1 cm 08/11/24 0936 Wound Width (cm) 0.9 cm 08/11/24 0936 Wound Depth (cm) 0.1 cm 08/11/24 0936 Wound 07/14/24 Foot Left;Anterior (Active) Wound Image 08/11/24 0937 Wound Length (cm) 0.6 cm 08/11/24 0937 Wound Width (cm) 1 cm 08/11/24 0937 Wound Depth (cm) 0.1 cm 08/11/24 0937 Wound 07/21/24 Pre-tibial Left (Active) Wound Image 08/11/24 0935 Wound Length (cm) 2 cm 08/11/24 0935 Wound Width (cm) 2.2 cm 08/11/24 0935 Wound Depth (cm) 0.1 cm 08/11/24 0935 Wound 06/29/24 1 Surgical Wound Second Toe Dorsal;Left (Active) Wound Image 08/11/24 0936 Wound Length (cm) 1 cm 08/11/24 0936 Wound Width (cm) 0.9 cm 08/11/24 0936 Wound Depth (cm) 0.1 cm 08/11/24 0936 Wound 07/14/24 Foot Left;Anterior (Active) Wound Image 08/18/24 0850 Wound Length (cm) 0.5 cm 08/18/24 0850 Wound Width (cm) 0.7 cm 08/18/24 0850 Wound Depth (cm) 0.1 cm 08/18/24 0850 Wound 07/21/24 Pre-tibial Left (Active) Wound Image 08/18/24 0850 Wound Length (cm) 2.3 cm 08/18/24 0850 Wound Width (cm) 2.3 cm 08/18/24 0850 Wound Depth (cm) 0.1 cm 08/18/24 0850 Wound 06/29/24 1 Surgical Wound Second Toe Dorsal;Left (Active) Wound Image 09/08/24 1030 Wound Length (cm) 1 cm 08/11/24 0936 Wound Width (cm) 0.9 cm 08/11/24 0936 Wound Depth (cm) 0.1 cm 08/11/24 0936 Wound 07/07/24 Third Toe Dorsal;Right (Active) Wound Image 08/25/24 0854 Wound Length (cm) 0.3 cm 08/11/24 0938 Wound Width (cm) 0.3 cm 08/11/24 0938 Wound Depth (cm) 0.1 cm 08/11/24 0938 Wound 07/21/24 Pre-tibial Left (Active) Wound Image 09/08/24 1029 Wound Length (cm) 2.3 cm 08/18/24 0850 Wound Width (cm) 1 cm 09/08/24 1029 Wound Depth (cm) 0.1 cm 08/18/24 0850 Wound 08/25/24 Lower Leg Left;Lateral (Active) Wound Image 09/08/24 1028 Wound Length (cm) 1.5 cm 09/08/24 1028 Wound Width (cm) 3 cm 09/08/24 1028 Wound Depth (cm) 0.1 cm 08/25/24 0852 Wound 09/15/24 Leg Left;Medial (Active) Wound Image 09/15/24 1023 Wound Length (cm) 7 cm 09/15/24 1023 Wound Width (cm) 0.8 cm 09/15/24 1023 Wound Depth (cm) 0.1 cm 09/15/24 1023 Healed. Assessment/Plan: Patient was seen and evaluated. Discussed all clinical findings Patient's bilateral lower extremity edema has improved significantly since last clinic visit. The left foot first metatarsophalangeal joint wound and the left second toe wound have both healed. All leg wounds have also healed with exception of a new full-thickness wound to the medial proximal left leg. This wound is superficial and does not require excisional debridement. Therefore, applied silver cell, 4 x 4, Kerlix and Zechariah bandage sequentially from toes to knee. Patient is received dressing change to the left leg wound twice weekly by home health care. Patient is to follow-up in 1 week for reevaluation. All questions were answered to patient satisfaction. Patient understands to call with any questionsor concerns. Follow-up in 1 week This note was partially created using voice recognition software and is inherently subject to errors including those of syntax and sound-alike substitutions which may escape proofreading. In such instances, original meaning may be extrapolated by contextual derivation. Alena Mora DPM, MS Podiatric Physician & Surgeon documented in this [id number] NoteWound Debridement Performed by: Alena Mora DPM Authorized by: Alena Mora DPM Consent Consent obtained? verbal Consent given by: patient Risks discussed? procedural risks discussed Debridement Details Performed by: physician Debridement type: surgical Level of debridement: subcutaneous tissue Post-debridement measurements Length (cm): 1 Width (cm): 1 Depth (cm): 1 Percent debrided: 1% Surface Area (cm^2): 1 Area Debrided (cm^2): 0.01 Volume (cm^3): 1 Tissue and other material debrided: subcutaneous tissue Response to treatment: procedure was tolerated [facility]12-06-2024 NoteEstablished Patient Visit Alena Mora DPM Patient Name: Dyllan Huertas. . Date of : 1960, 63 y.o.. Gender: male. Subjective: Patient is a pleasant 63-year-old male who presents to clinic for follow-up evaluation status post left partial second toe amputation secondary to osteomyelitis. Patient has other open wounds on left foot. Patient has been receiving dressing changes by home health care. Report significant movement to bilateral legs stating that wounds are smaller and swelling has decreased. Denies fevers, chills, nausea, vomiting, chest pain, shortness of breath, or any other constitutional symptoms. Past Medical History: Diagnosis Date Acquired equinus deformity of right foot Acquired hammer toe of right foot Angina pectoris with documented spasm (HCC) Calluse Cellulitis of left toe Charcot's joint, right ankle and foot Chronic osteomyelitis with draining sinus, right ankle and foot ([facility]) Complication of external fixation device with internal components ([facility]) Coronary artery disease Dehiscence of incision Diabetes mellitus, type 2 ([facility]) Dystrophic nail Edema Effusion of ankle and foot joint Fracture of metatarsal, closed Fungal toenail infection Hyperlipidemia Hypertension Hypothyroidism 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 ([facility]) Non-pressure chronic ulcer of other part of left foot limited to breakdown of skin ([facility]) Non-pressure chronic ulcer of other part of right foot with fat layer exposed ([facility]) limited to breakdown of skin Obesity Overflow incontinence Peripheral neuropathy Pressure ulcer of right foot, stage 2 ([facility]) S/P foot surgery, right 12/09/2019 11/20/2019Right foot reconstruction surgery with external fixation 12/02/2019 Right foot I and D Sleep apnea, obstructive does not use CPAP Tibia/fibula fracture Past Surgical History: Procedure Laterality Date APPENDECTOMY ARTHRODESIS SUBTALAR Right 05/01/2020 Procedure: RIGHT ANKLE ARTHRODESIS, SUBTALAR ARTHRODESIS RIGHT ANKLE, Bone [place] Graft From Right Fibula, Application of Splint; Surgeon: Alena Mora DPM; [facility]; Service: Podiatry ARTHROPLASTY TOE Right 01/25/2019 Procedure: ARTHROPLASTY 2ND TOE RIGHT FOOT; Surgeon: Rosa M Robles DPM; [facility]; Service: Podiatry CABG 2017 CARDIAC SURGERY 2017 CABG tripe bypass CLOSED REDUCTION PERCUTANEOUS PINNING LOWER EXTREMITY N/A 12/02/2019 Procedure: ADJUSTMENT of EXTERNAL FIXATOR; Surgeon: Alena Mora DPM; Location: [facility]; Service: Podiatry CT COLONOSCOPY 02/24/[address] COLONOSCOPY 03/21/2023 CT COLONOSCOPY CYST REMOVED FROM CHEST N/A INCISION AND DRAINAGE FOOT AND ANKLE Right 12/02/2019 Procedure: RIGHT FOOT I&D; Surgeon: Alena Mora DPM; [facility]: [facility]; Service: Podiatry LIPOSUCTION METAL IN LEFT LEFT WRIST AND LEFT 5TH TOE Left ORIF FOOT FRACTURE Left 07/03/2013 5th metatarsal ORTHOPEDIC SURGERY WI AMPUTATION TOE INTERPHALANGEAL JOINT Left 06/29/2024 Procedure: left partial 2nd toe amputation; Surgeon: Alena Mora DPM; [facility]: [facility]; Service: Podiatry RECONSTRUCTION FOOT CHARCOT Right 11/20/2019 Procedure: RIGHT FOOT RECONSTRUCTION WITH APPLICATION OF CIRCULAR STATIC EXTERNAL FIXATION; Surgeon: Alena Mora DPM; [facility]: [facility]; Service: Podiatry RT FOOT SURGERY Right SHARMILA JEONG N/A Physical Examination: BP (!) 147/76 Pulse 78 Temp 97.6 degrees F (36.4 degrees C) Resp 16 SpO2 95% General Appearance: Alert, cooperative, no distress, appears stated age. Podiatric Exam Vascular: DP and PT pulses are palpable. Capillary refill time is less than 3 secs to distal digits. Skin temperature is warm to cool from proximal tibial tuberosity to distal digit. + 2 pitting edema noted to bilateral lower extremities, improving Neurological: Gross sensation is intact. Protective sensation is absent using the [place]if monofilament. Dermatologic: Full-thickness ulceration noted to the dorsal left foot at the first metatarsophalangeal joint is improving. The previously noted wound to the left fifth metatarsophalangeal joint dorsal aspect has epithelialized. Surgical incision site to the left second toe is epithelializing but still Macerated tissue with some dehiscence noted surrounding the incision site Musculoskeletal: Ankle joint range of motion is intact. Muscle strength is 5/5 to dorsiflexors, plantar flexors, inverters and everters. Compartments soft and compressible. No calf pain Diagnoses: 1. Skin ulcer of second toe of left foot with fat layer exposed (HCC) CANCELED: Wound Debridement 2. Chronic foot ulcer with fat layer exposed, left (HCC) 3. Bilateral lower extremity edema Media: Wound 06/29/24 1 Surgical Wound Second Toe Dorsal;Left (Active) Wound Image 07/28/24 1043 Wound Length (cm) 0.5 cm 07/28/24 1043 Wound Width (cm) 2 (more content not included)...[facility]12-06-2024 History of Present illness Narrative* Alena Mora DPM - 09/08/2024 12:37 PM ESTPost-Procedure Diagnose(s): Skin ulcer of second toe of left foot with fat layer exposed (HCC) Images from the original note were not included. Established Patient Visit Alena Mora DPM Patient Name: Dyllan Huertas. . Date of : 1960, 63 y.o.. Gender: male. Subjective: Patient is a pleasant 63-year-old male who presents to clinic for follow-up evaluation status post left partial second toe amputation secondary to osteomyelitis. Patient has other open wounds on leftfoot. Patient has been receiving dressing changes by home health care. Report significant movement to bilateral legs stating that wounds are smaller and swelling has decreased. Denies fevers, chills,nausea, vomiting, chest pain, shortness of breath, or any other constitutional symptoms. Past Medical History: Diagnosis Date Acquired equinus deformity of right foot Acquired hammer toe of right foot Angina pectoris with documented spasm ([facility]) Calluse Cellulitis of left toe Charcot's joint, right ankle and foot Chronic osteomyelitis with draining sinus, right ankle and foot ([facility]) Complication of external fixation device with internal components ([facility]) Coronary artery disease Dehiscence of incision Diabetes mellitus, type 2 ([facility]) Dystrophic nail Edema Effusion of ankle and foot joint Fracture of metatarsal, closed Fungal toenail infection Hyperlipidemia Hypertension Hypothyroidism 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 ([facility]) Non-pressure chronic ulcer of other part of left foot limited to breakdown of skin ([facility]) Non-pressure chronic ulcer of other part of right foot with fat layer exposed ([facility]) limited to breakdown of skin Obesity Overflow incontinence Peripheral neuropathy Pressure ulcer of right foot, stage 2 ([facility]) S/P foot surgery, right 12/09/2019 11/20/2019Right foot reconstruction surgery with external fixation 12/02/2019 Right foot I and D Sleep apnea, obstructive does not use CPAP Tibia/fibula fracture Past Surgical History: Procedure Laterality Date APPENDECTOMY ARTHRODESIS SUBTALAR Right 05/01/2020 Procedure: RIGHT ANKLE ARTHRODESIS, SUBTALAR ARTHRODESIS RIGHT ANKLE, Bone [place] Graft From RightFibula, Application of Splint; Surgeon: Alena Mora DPM; Location: [facility] OR; Service: Podiatry ARTHROPLASTY TOE Right 01/25/2019 Procedure: ARTHROPLASTY 2ND TOE RIGHT FOOT; Surgeon: Rosa M Robles DPM; Location: [facility] [place] [facility] [place]; Service: Podiatry CABG 2017 CARDIAC SURGERY 2017 CABG tripe bypass CLOSED REDUCTION PERCUTANEOUS PINNING LOWER EXTREMITY N/A 12/02/2019 Procedure: ADJUSTMENT of EXTERNAL FIXATOR; Surgeon: Alena Mora DPM; Location: [facility]; Service: Podiatry CT COLONOSCOPY 02/24/[address] COLONOSCOPY 03/21/2023 CT COLONOSCOPY CYST REMOVED FROM CHEST N/A INCISION AND DRAINAGE FOOT AND ANKLE Right 12/02/2019 Procedure: RIGHT FOOT I&D; Surgeon: Alena Mora DPM; Location: [facility]; Service: Podiatry LIPOSUCTION METAL IN LEFT LEFT WRIST AND LEFT 5TH TOE Left ORIF FOOT FRACTURE Left 07/03/2013 5th metatarsal ORTHOPEDIC SURGERY WI AMPUTATION TOE INTERPHALANGEAL JOINT Left 06/29/2024 Procedure: left partial 2nd toe amputation; Surgeon: Alena Mora DPM; Location: [facility];Service: Podiatry RECONSTRUCTION FOOT CHARCOT Right 11/20/2019 Procedure: RIGHT FOOT RECONSTRUCTION WITH APPLICATION OF CIRCULAR STATIC EXTERNAL FIXATION; Surgeon: Alena Mora DPM; Location: [facility]; Service: Podiatry RT FOOT SURGERY Right TUMMY TUCK N/A Physical Examination: BP (!) 147/76 Pulse 78 Temp 97.6 F (36.4 C) Resp 16 SpO2 95% General Appearance: Alert, cooperative, no distress, appears stated age. Podiatric Exam Vascular: DP and PT pulses are palpable. Capillary refill time is less than 3 secs to distal digits. Skin temperature is warm to cool from proximal tibial tuberosity to distal digit. + 2 pitting edema noted to bilateral lower extremities, improving Neurological: Gross sensation is intact. Protective sensation is absent using the [place] Asif monofilament. Dermatologic: Full-thickness ulceration noted to the dorsal left foot at the first metatarsophalangeal joint is improving. The previously noted wound to the left fifth metatarsophalangeal joint dorsal aspect has epithelialized. Surgical incision site to the left second toe is epithelializing but still Macerated tissue with some dehiscence noted surrounding the incision site Musculoskeletal: Ankle joint range of motion is intact. Muscle strength is 5/5 to dorsiflexors, plantar flexors, inverters and everters. Compartments soft and compressible. No calf pain Diagnoses: 1. Skin ulcer of second toe of left foot with fat layer exposed (HCC) CANCELED: Wound Debridement 2. Chronic foot ulcer with fat layer exposed, left (HCC) 3. Bilateral lower extremity edema Media: Wound 06/29/24 1 Surgical Wound Second Toe Dorsal;Left (Active) Wound Image 07/28/24 1043 Wound Length (cm) 0.5 cm 07/28/24 1043 Wound Width (cm) 2 cm 07/28/24 1043 Wound Surface Area (cm^2) 1 cm^2 07/28/24 1043 Wound 07/14/24 Foot Left;Anterior (Active) Wound Image 07/28/24 1043 Wound Length (cm) 0.7 cm 07/28/24 1043 Wound Width (cm) 1 cm 07/28/24 1043 Wound Depth (cm) 0.1 cm 07/21/24 1008 Wound 07/21/24 Pre-tibial Left (Active) Wound Image 07/28/24 1042 Wound Length (cm) 1 cm 07/28/24 1042 Wound Width (cm) 0.5 cm 07/28/24 1042 Wound Depth (cm) 0.1 cm 07/28/24 1042 Wound 06/29/24 1 Surgical Wound Second Toe Dorsal;Left (Active) Wound Image 07/28/24 1043 Wound Length (cm) 0.5 cm 07/28/24 1043 Wound Width (cm) 2 cm 07/28/24 1043 Wound Surface Area (cm^2) 1 cm^2 07/28/24 1043 Wound 07/07/24 Third Toe Dorsal;Right (Active) Wound Image 08/04/24 1011 Wound Length (cm) 0.2 cm 08/04/24 1011 Wound Width (cm) 0.5 cm 08/04/24 1011 Wound Depth (cm) 0.1 cm 07/28/24 1044 Wound 07/14/24 Foot Left;Anterior (Active) Wound Image 08/04/24 1012 Wound Length (cm) 0.7 cm 08/04/24 1012 Wound Width (cm) 1 cm 08/04/24 1012 Wound Depth (cm) 0.1 cm 08/04/24 1012 Wound 07/21/24 Pre-tibial Left (Active) Wound Image 08/04/24 1011 Wound Length (cm) 0.5 cm 08/04/24 1011 Wound Width (cm) 0.2 cm 08/04/24 1011 Wound Depth (cm) 0.1 cm 08/04/24 1011 Wound 06/29/24 1 Surgical Wound Second Toe Dorsal;Left (Active) Wound Image 08/11/24 0936 Wound Length (cm) 1 cm 08/11/24 0936 Wound Width (cm) 0.9 cm 08/11/24 0936 Wound Depth (cm) 0.1 cm 08/11/24 0936 Wound 07/14/24 Foot Left;Anterior (Active) Wound Image 08/11/24 0937 Wound Length (cm) 0.6 cm 08/11/24 0937 Wound Width (cm) 1 cm 08/11/24 0937 Wound Depth (cm) 0.1 cm 08/11/24 0937 Wound 07/21/24 Pre-tibial Left (Active) Wound Image 08/11/24 0935 Wound Length (cm) 2 cm 08/11/24 0935 Wound Width (cm) 2.2 cm 08/11/24 0935 Wound Depth (cm) 0.1 cm 08/11/24 0935 Wound 06/29/24 1 Surgical Wound Second Toe Dorsal;Left (Active) Wound Image 08/11/24 0936 Wound Length (cm) 1 cm 08/11/24 0936 Wound Width (cm) 0.9 cm 08/11/24 0936 Wound Depth (cm) 0.1 cm 08/11/24 0936 Wound 07/14/24 Foot Left;Anterior (Active) Wound Image 08/18/24 0850 Wound Length (cm) 0.5 cm 08/18/24 0850 Wound Width (cm) 0.7 cm 08/18/24 0850 Wound Depth (cm) 0.1 cm 08/18/24 0850 Wound 07/21/24 Pre-tibial Left (Active) Wound Image 08/18/24 0850 Wound Length (cm) 2.3 cm 08/18/24 0850 Wound Width (cm) 2.3 cm 08/18/24 0850 Wound Depth (cm) 0.1 cm 08/18/24 0850 Wound 06/29/24 1 Surgical Wound Second Toe Dorsal;Left (Active) Wound Image 09/08/24 1030 Wound Length (cm) 1 cm 08/11/24 0936 Wound Width (cm) 0.9 cm 08/11/24 0936 Wound Depth (cm) 0.1 cm 08/11/24 0936 Wound 07/07/24 Third Toe Dorsal;Right (Active) Wound Image 08/25/24 0854 Wound Length (cm) 0.3 cm 08/11/24 0938 Wound Width (cm) 0.3 cm 08/11/24 0938 Wound Depth (cm) 0.1 cm 08/11/24 0938 Wound 07/21/24 Pre-tibial Left (Active) Wound Image 09/08/24 1029 Wound Length (cm) 2.3 cm 08/18/24 0850 Wound Width (cm) 1 cm 09/08/24 1029 Wound Depth (cm) 0.1 cm 08/18/24 0850 Wound 08/25/24 Lower Leg Left;Lateral (Active) Wound Image 09/08/24 1028 Wound Length (cm) 1.5 cm 09/08/24 1028 Wound Width (cm) 3 cm 09/08/24 1028 Wound Depth (cm) 0.1 cm 08/25/24 0852 Assessment/Plan: Patient was seen and evaluated. Discussed all clinical findings Patient's bilateral lower extremity edema has improved significantly since last clinic visit. Moreover, patient's left foot wounds to the medial first metatarsophalangeal joint and left second toe and left leg have also improved significantly. No need for excisional debridement today. Recommended the patient continues applying silver cell to all these wounds, 4 x 4's, Kerlix and Zechariah bandage. Compression dressing using Zechariah bandage bilateral legs is medically necessary for edema control. All questions were answered to patient satisfaction. Patient understands to call with any questionsor concerns. Follow-up in 1 week This note was partially created using voice recognition software and is inherently subject to errors including those of syntax and sound-alike substitutions which may escape proofreading. In such instances, original meaning may be extrapolated by contextual derivation. Alena Mora DPM, MS Podiatric Physician & Surgeon documented in this [id number] Instructions* Patient Instructions* Gloria Mcdowell RN - 09/08/2024 11:06 AM EST Comments: Silvercel to all wounds, 4 x 4, Kerlix and Zechariah bandage bilaterally. Frequency: Apply once every other day Follow up: 1 week(s) documented in this [id number] Instructions* Patient Instructions* Lyndsey Powers RN - 08/25/2024 9:14 AM EST omments Apply Triad cream around blister edges of the left leg. Apply silver cell over all blister sites aswell as second toe ulceration. Secure with 4 x 4 gauze, Kerlix, Zechariah. Dressing change Wednesday at home with home health. documented in this [id number] NoteEstablished Patient Visit Torie Avendano CNP Patient Name: Dyllan Huertas. . Date of : 1960, 63 y.o.. Gender: male. Subjective: Patient is a pleasant 63-year-old male who presents to clinic for follow-up evaluation 7 weeks status post left partial second toe amputation secondary to osteomyelitis. Patient has other open wounds on left foot. Patient has been receiving dressing changes by home health care. Reports new blister to the left leg. Denies fevers, chills, nausea, vomiting, chest pain, shortness of breath, or any other constitutional symptoms. Past Medical History: Diagnosis Date - Acquired equinus deformity of right foot - Acquired hammer toe of right foot - Angina pectoris with documented spasm ([facility]) - Calluse - Cellulitis of left toe - Charcot's joint, right ankle and foot - Chronic osteomyelitis with draining sinus, right ankle and foot ([facility]) - Complication of external fixation device with internal components (HCC) - Coronary artery disease - Dehiscence of incision - Diabetes mellitus, type 2 ([facility]) - Dystrophic nail - Edema - Effusion of ankle and foot joint - Fracture of metatarsal, closed - Fungal toenail infection - Hyperlipidemia - Hypertension - Hypothyroidism - 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) - Non-pressure chronic ulcer of other part of left foot limited to breakdown of skin (HCC) - Non-pressure chronic ulcer of other part of right foot with fat layer exposed ([facility]) limited to breakdown of skin - Obesity - Overflow incontinence - Peripheral neuropathy - Pressure ulcer of right foot, stage 2 ([facility]) - S/P foot surgery, right 12/09/2019 11/20/2019Right foot reconstruction surgery with external fixation 12/02/2019 Right foot I and D - Sleep apnea, obstructive does not use CPAP - Tibia/fibula fracture Past Surgical History: Procedure Laterality Date - APPENDECTOMY - ARTHRODESIS SUBTALAR Right 05/01/2020 Procedure: RIGHT ANKLE ARTHRODESIS, SUBTALAR ARTHRODESIS RIGHT ANKLE, Bone [place] Graft From Right Fibula, Application of Splint; Surgeon: Alena Mora DPM; Location: [facility]; Service: Podiatry - ARTHROPLASTY TOE Right 01/25/2019 Procedure: ARTHROPLASTY 2ND TOE RIGHT FOOT; Surgeon: Rosa M Robles DPM; [facility] [facility]; Service: Podiatry - CABG 2017 - CARDIAC SURGERY 2017 CABG tripe bypass - CLOSED REDUCTION PERCUTANEOUS PINNING LOWER EXTREMITY N/A 12/02/2019 Procedure: ADJUSTMENT of EXTERNAL FIXATOR; Surgeon: Alnea Mora DPM; Location: [facility]; Service: Podiatry - CT COLONOSCOPY 02/24/2023 CT COLONOSCOPY - CT COLONOSCOPY 03/21/2023 CT COLONOSCOPY - CYST REMOVED FROM CHEST N/A - INCISION AND DRAINAGE FOOT AND ANKLE Right 12/02/2019 Procedure: RIGHT FOOT I&D; Surgeon: Alena Mora DPM; Location: [facility]; Service: Podiatry - LIPOSUCTION - METAL IN LEFT LEFT WRIST AND LEFT 5TH TOE Left - ORIF FOOT FRACTURE Left 07/03/2013 5th metatarsal - ORTHOPEDIC SURGERY - [place] AMPUTATION TOE INTERPHALANGEAL JOINT Left 06/29/2024 Procedure: left partial 2nd toe amputation; Surgeon: Alena Mora DPM; Location: [facility]; Service: Podiatry - RECONSTRUCTION FOOT CHARCOT Right 11/20/2019 Procedure: RIGHT FOOT RECONSTRUCTION WITH APPLICATION OF CIRCULAR STATIC EXTERNAL FIXATION; Surgeon: Alena Mora DPM; Location: [facility]; Service: Podiatry - RT FOOT SURGERY Right - TUMMY TUCK N/A Physical Examination: BP (!) 151/78 Pulse 86 Temp 98.3 degrees F (36.8 degrees C) Resp 16 SpO2 92% General Appearance: Alert, cooperative, no distress, appears stated age. Podiatric Exam Vascular: DP and PT pulses are palpable. Capillary refill time is less than 3 secs to distal digits. Skin temperature is warm to cool from proximal tibial tuberosity to distal digit. + 2 pitting edema noted to bilateral lower extremities, improving Neurological: Gross sensation is intact. Protective sensation is absent using the [place] Asif monofilament. Dermatologic: Full-thickness ulceration noted to the dorsal left foot at the first metatarsophalangeal joint is improving. The previously noted wound to the left fifth metatarsophalangeal joint dorsal aspect has epithelialized. Surgical incision site to the left second toe is epithelializing but still Macerated tissue with some dehiscence noted surrounding the incision site Musculoskeletal: Ankle joint range of motion is intact. Muscle strength is 5/5 to dorsiflexors, plantar flexors, inverters and everters. Compartments soft and compressible. No calf pain Diagnoses: No diagnosis found. Media: Wound 06/29/24 1 Surgical Wound Second Toe Dorsal;Left (Active) Wound Image 07/28/24 1043 Wound Length (cm) 0.5 cm 07/28/24 1043 Wound Width (cm) 2 cm 07/28/24 1043 Wound Surface Area (cm^2) 1 cm^2 07/28/24 1043 Wound 07/14/24 Foot Left;Anterior (Active) Wound Image 07/28/24 1043 Wound (more content not included)...[facility]11-22-2024 History of Present illness Narrative* Torie Avendano CNP - 08/25/2024 8:58 AM EST Associated Order(s): Wound Debridement Post-Procedure Diagnose(s): Skin ulcer of second toe of left foot with fat layer exposed (HCC) Images from the original note were not included. Established Patient Visit Torie Avendano CNP Patient Name: Dyllan Huertas. . Date of : 1960, 63 y.o.. Gender: male. Subjective: Patient is a pleasant 63-year-old male who presents to clinic for follow-up evaluation 7 weeks status post left partial second toe amputation secondary to osteomyelitis. Patient has other open woundson left foot. Patient has been receiving dressing changes by home health care. Reports new blister to the left leg. Denies fevers, chills, nausea, vomiting, chest pain, shortness of breath, or any other constitutional symptoms. Past Medical History: Diagnosis Date Acquired equinus deformity of right foot Acquired hammer toe of right foot Angina pectoris with documented spasm ([facility]) Calluse Cellulitis of left toe Charcot's joint, right ankle and foot Chronic osteomyelitis with draining sinus, right ankle and foot ([facility]) Complication of external fixation device with internal components ([facility]) Coronary artery disease Dehiscence of incision Diabetes mellitus, type 2 ([facility]) Dystrophic nail Edema Effusion of ankle and foot joint Fracture of metatarsal, closed Fungal toenail infection Hyperlipidemia Hypertension Hypothyroidism 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 ([facility]) Non-pressure chronic ulcer of other part of left foot limited to breakdown of skin ([facility]) Non-pressure chronic ulcer of other part of right foot with fat layer exposed ([facility]) limited to breakdown of skin Obesity Overflow incontinence Peripheral neuropathy Pressure ulcer of right foot, stage 2 ([facility]) S/P foot surgery, right 12/09/2019 11/20/2019Right foot reconstruction surgery with external fixation 12/02/2019 Right foot I and D Sleep apnea, obstructive does not use CPAP Tibia/fibula fracture Past Surgical History: Procedure Laterality Date APPENDECTOMY ARTHRODESIS SUBTALAR Right 05/01/2020 Procedure: RIGHT ANKLE ARTHRODESIS, SUBTALAR ARTHRODESIS RIGHT ANKLE, Bone [place] Graft From RightFibula, Application of Splint; Surgeon: Alena Mora DPM; Location: [facility]; Service: Podiatry ARTHROPLASTY TOE Right 01/25/2019 Procedure: ARTHROPLASTY 2ND TOE RIGHT FOOT; Surgeon: Rosa M Robles DPM; Location[place] [facility]; Service: Podiatry CABG 2017 CARDIAC SURGERY 2017 CABG tripe bypass CLOSED REDUCTION PERCUTANEOUS PINNING LOWER EXTREMITY N/A 12/02/2019 Procedure: ADJUSTMENT of EXTERNAL FIXATOR; Surgeon: Alena Mora DPM; Location: [facility]; Service: Podiatry CT COLONOSCOPY 02/24/[address] COLONOSCOPY 03/21/2023 CT COLONOSCOPY CYST REMOVED FROM CHEST N/A INCISION AND DRAINAGE FOOT AND ANKLE Right 12/02/2019 Procedure: RIGHT FOOT I&D; Surgeon: Alena Mora DPM; Location: [facility]; Service: Podiatry LIPOSUCTION METAL IN LEFT LEFT WRIST AND LEFT 5TH TOE Left ORIF FOOT FRACTURE Left 07/03/2013 5th metatarsal ORTHOPEDIC SURGERY [place] AMPUTATION TOE INTERPHALANGEAL JOINT Left 06/29/2024 Procedure: left partial 2nd toe amputation; Surgeon: Alena Mora DPM; [facility]: [facility];Service: Podiatry RECONSTRUCTION FOOT CHARCOT Right 11/20/2019 Procedure: RIGHT FOOT RECONSTRUCTION WITH APPLICATION OF CIRCULAR STATIC EXTERNAL FIXATION; Surgeon: Alena Mora DPM; Location: [facility]; Service: Podiatry RT FOOT SURGERY Right TUMMY [place] N/A Physical Examination: BP (!) 151/78 Pulse 86 Temp 98.3 F (36.8 C) Resp 16 SpO2 92% General Appearance: Alert, cooperative, no distress, appears stated age. Podiatric Exam Vascular: DP and PT pulses are palpable. Capillary refill time is less than 3 secs to distal digits. Skin temperature is warm to cool from proximal tibial tuberosity to distal digit. + 2 pitting edema noted to bilateral lower extremities, improving Neurological: Gross sensation is intact. Protective sensation is absent using the [place] Asif monofilament. Dermatologic: Full-thickness ulceration noted to the dorsal left foot at the first metatarsophalangeal joint is improving. The previously noted wound to the left fifth metatarsophalangeal joint dorsal aspect has epithelialized. Surgical incision site to the left second toe is epithelializing but still Macerated tissue with some dehiscence noted surrounding the incision site Musculoskeletal: Ankle joint range of motion is intact. Muscle strength is 5/5 to dorsiflexors, plantar flexors, inverters and everters. Compartments soft and compressible. No calf pain Diagnoses: No diagnosis found. Media: Wound 06/29/24 1 Surgical Wound Second Toe Dorsal;Left (Active) Wound Image 07/28/24 1043 Wound Length (cm) 0.5 cm 07/28/24 1043 Wound Width (cm) 2 cm 07/28/24 1043 Wound Surface Area (cm^2) 1 cm^2 07/28/24 1043 Wound 07/14/24 Foot Left;Anterior (Active) Wound Image 07/28/24 1043 Wound Length (cm) 0.7 cm 07/28/24 1043 Wound Width (cm) 1 cm 07/28/24 1043 Wound Depth (cm) 0.1 cm 07/21/24 1008 Wound 07/21/24 Pre-tibial Left (Active) Wound Image 07/28/24 1042 Wound Length (cm) 1 cm 07/28/24 1042 Wound Width (cm) 0.5 cm 07/28/24 1042 Wound Depth (cm) 0.1 cm 07/28/24 1042 Wound 06/29/24 1 Surgical Wound Second Toe Dorsal;Left (Active) Wound Image 07/28/24 1043 Wound Length (cm) 0.5 cm 07/28/24 1043 Wound Width (cm) 2 cm 07/28/24 1043 Wound Surface Area (cm^2) 1 cm^2 07/28/24 1043 Wound 07/07/24 Third Toe Dorsal;Right (Active) Wound Image 08/04/24 1011 Wound Length (cm) 0.2 cm 08/04/24 1011 Wound Width (cm) 0.5 cm 08/04/24 1011 Wound Depth (cm) 0.1 cm 07/28/24 1044 Wound 07/14/24 Foot Left;Anterior (Active) Wound Image 08/04/24 1012 Wound Length (cm) 0.7 cm 08/04/24 1012 Wound Width (cm) 1 cm 08/04/24 1012 Wound Depth (cm) 0.1 cm 08/04/24 1012 Wound 07/21/24 Pre-tibial Left (Active) Wound Image 08/04/24 1011 Wound Length (cm) 0.5 cm 08/04/24 1011 Wound Width (cm) 0.2 cm 08/04/24 1011 Wound Depth (cm) 0.1 cm 08/04/24 1011 Wound 06/29/24 1 Surgical Wound Second Toe Dorsal;Left (Active) Wound Image 08/11/24 0936 Wound Length (cm) 1 cm 08/11/24 0936 Wound Width (cm) 0.9 cm 08/11/24 0936 Wound Depth (cm) 0.1 cm 08/11/24 0936 Wound 07/14/24 Foot Left;Anterior (Active) Wound Image 08/11/24 0937 Wound Length (cm) 0.6 cm 08/11/24 0937 Wound Width (cm) 1 cm 08/11/24 0937 Wound Depth (cm) 0.1 cm 08/11/24 0937 Wound 07/21/24 Pre-tibial Left (Active) Wound Image 08/11/24 0935 Wound Length (cm) 2 cm 08/11/24 0935 Wound Width (cm) 2.2 cm 08/11/24 0935 Wound Depth (cm) 0.1 cm 08/11/24 0935 Wound 06/29/24 1 Surgical Wound Second Toe Dorsal;Left (Active) Wound Image 08/11/24 0936 Wound Length (cm) 1 cm 08/11/24 0936 Wound Width (cm) 0.9 cm 08/11/24 0936 Wound Depth (cm) 0.1 cm 08/11/24 0936 Wound 07/14/24 Foot Left;Anterior (Active) Wound Image 08/18/24 0850 Wound Length (cm) 0.5 cm 08/18/24 0850 Wound Width (cm) 0.7 cm 08/18/24 0850 Wound Depth (cm) 0.1 cm 08/18/24 0850 Wound 07/21/24 Pre-tibial Left (Active) Wound Image 08/18/24 0850 Wound Length (cm) 2.3 cm 08/18/24 0850 Wound Width (cm) 2.3 cm 08/18/24 0850 Wound Depth (cm) 0.1 cm 08/18/24 0850 Assessment/Plan: Patient was seen and evaluated. Discussed all clinical findings Patient has developed a large blister to the medial left leg that requires deroofing. This was performed using a #11 blade. Serous drainage was expressed. Patient's surgical incision site to the left second toe amputation is healing slowly and poorly with macerated tissue and slight incisional dehiscence. This required excisional debridement to remove nonviable soft tissue and biofilm. See procedure below. Following debridement, applied silver cell, 4 x 4, Kerlix and Zechariah bandage. Moreover, on the dorsal left foot, patient has 1 full-thickness ulceration at the dorsal aspect of the first metatarsophalangeal joint that require excisional debridement. See procedure below. Following debridement, applied silver cell, 4 x 4, Kerlix and Zechariah bandage. All questions were answered to patient satisfaction. Patient understands to call with any questionsor concerns. Follow-up in 1 week Again on 08/25/2024 Patient coming to wound clinic for evaluation of left second toe postsurgical ulceration and left lower extremity blisters Patient states he has continued to have new blisters pop up to the left leg, he continues on bumetanide. Denies any chest pain or shortness of breath Blister sites are denuded and granular, no indication for debridement of blister sites. Left secondtoe surgical site does indicate need for debridement to remove nonviable crusted tissue. Following verbal and written consent and timeout, this was accomplished with sharp excisional debridement downto and including subcutaneous tissue using 4 mm loop curette. Patient tolerated procedure well. Seeprocedure below Dressing as follows: Apply Triad cream around blister edges of the left leg. Apply silver cell overall blister sites as well as second toe ulceration. Secure with 4 x 4 gauze, Kerlix, Zechariah. Dressing change Wednesday at home with home health. Continue limiting weightbearing to the left foot Follow-up in 1 week in wound clinic with Dr. Mora Wound Debridement Performed by: Torie Avendano CNP Authorized by: Torie Avendano CNP Consent Consent obtained? verbal Consent given by: patient Risks discussed? procedural risks discussed Time out called at 08/25/2024 10:03 AM Immediately prior to the procedure a time out was called and the performing provider verified the correct patient, procedure, equipment, support service tech, and site/side marked as required. Debridement Details Performed by: MEDICAL SURGICAL TECH Debridement type: surgical Level of debridement: subcutaneous tissue Pain control: none Post-debridement measurements Length (cm): 1 Width (cm): 0.2 Depth (cm): 0.1 Percent debrided: 100% Surface Area (cm^2): 0.2 Area Debrided (cm^2): 0.2 Volume (cm^3): 0.02 Tissue and other material debrided: subcutaneous tissue Devitalized tissue debrided: biofilm, fibrin and slough Instrument(s) utilized: curette Bleeding: none Hemostasis obtained with: not applicable Procedural pain (0-10): insensate Post-procedural pain: insensate Response to treatment: procedure was tolerated well documented in this [id number] NoteEstablished Patient Visit Alena Mora DPM Patient Name: Dyllan Huertas. . Date of : 1960, 63 y.o.. Gender: male. Subjective: Patient is a pleasant 63-year-old male who presents to clinic for follow-up evaluation 7 weeks status post left partial second toe amputation secondary to osteomyelitis. Patient has other open wounds on left foot. Patient has been receiving dressing changes by home health care. Reports new blister to the left leg. Denies fevers, chills, nausea, vomiting, chest pain, shortness of breath, or any other constitutional symptoms. Past Medical History: Diagnosis Date Acquired equinus deformity of right foot Acquired hammer toe of right foot Angina pectoris with documented spasm ([facility]) Calluse Cellulitis of left toe Charcot's joint, right ankle and foot Chronic osteomyelitis with draining sinus, right ankle and foot ([facility]) Complication of external fixation device with internal components ([facility]) Coronary artery disease Dehiscence of incision Diabetes mellitus, type 2 ([facility]) Dystrophic nail Edema Effusion of ankle and foot joint Fracture of metatarsal, closed Fungal toenail infection Hyperlipidemia Hypertension Hypothyroidism 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 ([facility]) Non-pressure chronic ulcer of other part of left foot limited to breakdown of skin ([facility]) Non-pressure chronic ulcer of other part of right foot with fat layer exposed ([facility]) limited to breakdown of skin Obesity Overflow incontinence Peripheral neuropathy Pressure ulcer of right foot, stage 2 ([facility]) S/P foot surgery, right 12/09/2019 11/20/2019Right foot reconstruction surgery with external fixation 12/02/2019 Right foot I and D Sleep apnea, obstructive does not use CPAP Tibia/fibula fracture Past Surgical History: Procedure Laterality Date APPENDECTOMY ARTHRODESIS SUBTALAR Right 05/01/2020 Procedure: RIGHT ANKLE ARTHRODESIS, SUBTALAR ARTHRODESIS RIGHT ANKLE, Bone [place] Graft From Right Fibula, Application of Splint; Surgeon: Alena Mora DPM; Location: [facility] OR; Service: Podiatry ARTHROPLASTY TOE Right 01/25/2019 Procedure: ARTHROPLASTY 2ND TOE RIGHT FOOT; Surgeon: Rosa M Robles DPM; Location: [facility] [place]; Service: Podiatry CABG 2017 CARDIAC SURGERY 2017 CABG tripe bypass CLOSED REDUCTION PERCUTANEOUS PINNING LOWER EXTREMITY N/A 12/02/2019 Procedure: ADJUSTMENT of EXTERNAL FIXATOR; Surgeon: Alena Mora DPM; Location: [facility]; Service: Podiatry CT COLONOSCOPY 02/24/[address] COLONOSCOPY 03/21/2023 CT COLONOSCOPY CYST REMOVED FROM CHEST N/A INCISION AND DRAINAGE FOOT AND ANKLE Right 12/02/2019 Procedure: RIGHT FOOT I&D; Surgeon: Alena Mora DPM; Location: [facility]; Service: Podiatry LIPOSUCTION METAL IN LEFT LEFT WRIST AND LEFT 5TH TOE Left ORIF FOOT FRACTURE Left 07/03/2013 5th metatarsal ORTHOPEDIC SURGERY WI AMPUTATION TOE INTERPHALANGEAL JOINT Left 06/29/2024 Procedure: left partial 2nd toe amputation; Surgeon: Alena Mora DPM; [facility]: [facility]; Service: Podiatry RECONSTRUCTION FOOT CHARCOT Right 11/20/2019 Procedure: RIGHT FOOT RECONSTRUCTION WITH APPLICATION OF CIRCULAR STATIC EXTERNAL FIXATION; Surgeon: Alena Mora DPM; Location: [facility]; Service: Podiatry RT FOOT SURGERY Right TUMMY TUCK N/A Physical Examination: BP (!) 142/76 Pulse (!) 58 Resp 18 SpO2 92% General Appearance: Alert, cooperative, no distress, appears stated age. Podiatric Exam Vascular: DP and PT pulses are palpable. Capillary refill time is less than 3 secs to distal digits. Skin temperature is warm to cool from proximal tibial tuberosity to distal digit. + 2 pitting edema noted to bilateral lower extremities, improving Neurological: Gross sensation is intact. Protective sensation is absent using the [place] Asif monofilament. Dermatologic: Full-thickness ulceration noted to the dorsal left foot at the first metatarsophalangeal joint is improving. The previously noted wound to the left fifth metatarsophalangeal joint dorsal aspect has epithelialized. Surgical incision site to the left second toe is epithelializing but still Macerated tissue with some dehiscence noted surrounding the incision site Musculoskeletal: Ankle joint range of motion is intact. Muscle strength is 5/5 to dorsiflexors, plantar flexors, inverters and everters. Compartments soft and compressible. No calf pain Diagnoses: 1. Skin ulcer of second toe of left foot with fat layer exposed (HCC) Wound Debridement 2. Blister of left lower extremity, initial encounter Media: Wound 06/29/24 1 Surgical Wound Second Toe Dorsal;Left (Active) Wound Image 07/28/24 1043 Wound Length (cm) 0.5 cm 07/28/24 1043 Wound Width (cm) 2 cm 07/28/24 1043 Wound Surface Area (cm^2) 1 cm^2 07/28/24 1043 Wound 07/14/24 Foot Left;Anterior (Active) Wound Image 07/28/24 1043 Wound (more content not included)...[facility]11-15-2024 History of Present illness Narrative* Alena Mora DPM - 08/18/2024 11:29 PM EST Associated Order(s): Wound Debridement Post-Procedure Diagnose(s): Skin ulcer of second toe of left foot with fat layer exposed (HCC) Wound Debridement Performed by: Alena Mora DPM Authorized by: Alena Mora DPM Consent Consent obtained? verbal Consent given by: patient Risks discussed? procedural risks discussed Immediately prior to the procedure a time out was called and the performing provider verified the correct patient, procedure, equipment, support service tech, and site/side marked as required. Debridement Details Performed by: physician Debridement type: surgical Level of debridement: subcutaneous tissue Post-debridement measurements Length (cm): 1 Width (cm): 0.2 Depth (cm): 0.2 Percent debrided: 100% Surface Area (cm^2): 0.2 Area Debrided (cm^2): 0.2 Volume (cm^3): 0.04 Tissue and other material debrided: subcutaneous tissue Devitalized tissue debrided: biofilm, fibrin and slough Instrument(s) utilized: curette Bleeding: small Hemostasis obtained with: pressure Response to treatment: procedure was tolerated well documented in this [id number] History of Present illness Narrative* Alena Mora DPM - 08/18/2024 11:29 PM ESTAssociated Order(s): Wound Debridement Post-Procedure Diagnose(s): Skin ulcer of second toe of left foot with fat layer exposed (HCC) Images from the original note were not included. Established Patient Visit Alena Mora DPM Patient Name: Dyllan Huertas. . Date of : 1960, 63 y.o.. Gender: male. Subjective: Patient is a pleasant 63-year-old male who presents to clinic for follow-up evaluation 7 weeks status post left partial second toe amputation secondary to osteomyelitis. Patient has other open woundson left foot. Patient has been receiving dressing changes by home health care. Reports new blister to the left leg. Denies fevers, chills, nausea, vomiting, chest pain, shortness of breath, or any other constitutional symptoms. Past Medical History: Diagnosis Date Acquired equinus deformity of right foot Acquired hammer toe of right foot Angina pectoris with documented spasm ([facility]) Calluse Cellulitis of left toe Charcot's joint, right ankle and foot Chronic osteomyelitis with draining sinus, right ankle and foot ([facility]) Complication of external fixation device with internal components ([facility]) Coronary artery disease Dehiscence of incision Diabetes mellitus, type 2 ([facility]) Dystrophic nail Edema Effusion of ankle and foot joint Fracture of metatarsal, closed Fungal toenail infection Hyperlipidemia Hypertension Hypothyroidism 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 ([facility]) Non-pressure chronic ulcer of other part of left foot limited to breakdown of skin ([facility]) Non-pressure chronic ulcer of other part of right foot with fat layer exposed ([facility]) limited to breakdown of skin Obesity Overflow incontinence Peripheral neuropathy Pressure ulcer of right foot, stage 2 ([facility]) S/P foot surgery, right 12/09/2019 11/20/2019Right foot reconstruction surgery with external fixation 12/02/2019 Right foot I and D Sleep apnea, obstructive does not use CPAP Tibia/fibula fracture Past Surgical History: Procedure Laterality Date APPENDECTOMY ARTHRODESIS SUBTALAR Right 05/01/2020 Procedure: RIGHT ANKLE ARTHRODESIS, SUBTALAR ARTHRODESIS RIGHT ANKLE, Bone [place] Graft From RightFibula, Application of Splint; Surgeon: Alena Mora DPM; Location: [facility] OR; Service: Podiatry ARTHROPLASTY TOE Right 01/25/2019 Procedure: ARTHROPLASTY 2ND TOE RIGHT FOOT; Surgeon: Rosa M Robles DPM; Location: [facility] [place] [facility] [place]; Service: Podiatry CABG 2017 CARDIAC SURGERY 2017 CABG tripe bypass CLOSED REDUCTION PERCUTANEOUS PINNING LOWER EXTREMITY N/A 12/02/2019 Procedure: ADJUSTMENT of EXTERNAL FIXATOR; Surgeon: Alena Mora DPM; Location: [facility]; Service: Podiatry CT COLONOSCOPY 02/24/[address] COLONOSCOPY 03/21/2023 CT COLONOSCOPY CYST REMOVED FROM CHEST N/A INCISION AND DRAINAGE FOOT AND ANKLE Right 12/02/2019 Procedure: RIGHT FOOT I&D; Surgeon: Alena Mora DPM; Location: [facility]; Service: Podiatry LIPOSUCTION METAL IN LEFT LEFT WRIST AND LEFT 5TH TOE Left ORIF FOOT FRACTURE Left 07/03/2013 5th metatarsal ORTHOPEDIC SURGERY WI AMPUTATION TOE INTERPHALANGEAL JOINT Left 06/29/2024 Procedure: left partial 2nd toe amputation; Surgeon: Aelna Mora DPM; Location: [facility];Service: Podiatry RECONSTRUCTION FOOT CHARCOT Right 11/20/2019 Procedure: RIGHT FOOT RECONSTRUCTION WITH APPLICATION OF CIRCULAR STATIC EXTERNAL FIXATION; Surgeon: Alena Mora DPM; Location: [facility]; Service: Podiatry RT FOOT SURGERY Right TUMEMILY GARCIA N/A Physical Examination: BP (!) 142/76 Pulse (!) 58 Resp 18 SpO2 92% General Appearance: Alert, cooperative, no distress, appears stated age. Podiatric Exam Vascular: DP and PT pulses are palpable. Capillary refill time is less than 3 secs to distal digits. Skin temperature is warm to cool from proximal tibial tuberosity to distal digit. + 2 pitting edema noted to bilateral lower extremities, improving Neurological: Gross sensation is intact. Protective sensation is absent using the [place] Asif monofilament. Dermatologic: Full-thickness ulceration noted to the dorsal left foot at the first metatarsophalangeal joint is improving. The previously noted wound to the left fifth metatarsophalangeal joint dorsal aspect has epithelialized. Surgical incision site to the left second toe is epithelializing but still Macerated tissue with some dehiscence noted surrounding the incision site Musculoskeletal: Ankle joint range of motion is intact. Muscle strength is 5/5 to dorsiflexors, plantar flexors, inverters and everters. Compartments soft and compressible. No calf pain Diagnoses: 1. Skin ulcer of second toe of left foot with fat layer exposed (HCC) Wound Debridement 2. Blister of left lower extremity, initial encounter Media: Wound 06/29/24 1 Surgical Wound Second Toe Dorsal;Left (Active) Wound Image 07/28/24 1043 Wound Length (cm) 0.5 cm 07/28/24 1043 Wound Width (cm) 2 cm 07/28/24 1043 Wound Surface Area (cm^2) 1 cm^2 07/28/24 1043 Wound 07/14/24 Foot Left;Anterior (Active) Wound Image 07/28/24 1043 Wound Length (cm) 0.7 cm 07/28/24 1043 Wound Width (cm) 1 cm 07/28/24 1043 Wound Depth (cm) 0.1 cm 07/21/24 1008 Wound 07/21/24 Pre-tibial Left (Active) Wound Image 07/28/24 1042 Wound Length (cm) 1 cm 07/28/24 1042 Wound Width (cm) 0.5 cm 07/28/24 1042 Wound Depth (cm) 0.1 cm 07/28/24 1042 Wound 06/29/24 1 Surgical Wound Second Toe Dorsal;Left (Active) Wound Image 07/28/24 1043 Wound Length (cm) 0.5 cm 07/28/24 1043 Wound Width (cm) 2 cm 07/28/24 1043 Wound Surface Area (cm^2) 1 cm^2 07/28/24 1043 Wound 07/07/24 Third Toe Dorsal;Right (Active) Wound Image 08/04/24 1011 Wound Length (cm) 0.2 cm 08/04/24 1011 Wound Width (cm) 0.5 cm 08/04/24 1011 Wound Depth (cm) 0.1 cm 07/28/24 1044 Wound 07/14/24 Foot Left;Anterior (Active) Wound Image 08/04/24 1012 Wound Length (cm) 0.7 cm 08/04/24 1012 Wound Width (cm) 1 cm 08/04/24 1012 Wound Depth (cm) 0.1 cm 08/04/24 1012 Wound 07/21/24 Pre-tibial Left (Active) Wound Image 08/04/24 1011 Wound Length (cm) 0.5 cm 08/04/24 1011 Wound Width (cm) 0.2 cm 08/04/24 1011 Wound Depth (cm) 0.1 cm 08/04/24 1011 Wound 06/29/24 1 Surgical Wound Second Toe Dorsal;Left (Active) Wound Image 08/11/24 0936 Wound Length (cm) 1 cm 08/11/24 0936 Wound Width (cm) 0.9 cm 08/11/24 0936 Wound Depth (cm) 0.1 cm 08/11/24 0936 Wound 07/14/24 Foot Left;Anterior (Active) Wound Image 08/11/24 0937 Wound Length (cm) 0.6 cm 08/11/24 0937 Wound Width (cm) 1 cm 08/11/24 0937 Wound Depth (cm) 0.1 cm 08/11/24 0937 Wound 07/21/24 Pre-tibial Left (Active) Wound Image 08/11/24 0935 Wound Length (cm) 2 cm 08/11/24 0935 Wound Width (cm) 2.2 cm 08/11/24 0935 Wound Depth (cm) 0.1 cm 08/11/24 0935 Wound 06/29/24 1 Surgical Wound Second Toe Dorsal;Left (Active) Wound Image 08/11/24 0936 Wound Length (cm) 1 cm 08/11/24 0936 Wound Width (cm) 0.9 cm 08/11/24 0936 Wound Depth (cm) 0.1 cm 08/11/24 0936 Wound 07/14/24 Foot Left;Anterior (Active) Wound Image 08/18/24 0850 Wound Length (cm) 0.5 cm 08/18/24 0850 Wound Width (cm) 0.7 cm 08/18/24 0850 Wound Depth (cm) 0.1 cm 08/18/24 0850 Wound 07/21/24 Pre-tibial Left (Active) Wound Image 08/18/24 0850 Wound Length (cm) 2.3 cm 08/18/24 0850 Wound Width (cm) 2.3 cm 08/18/24 0850 Wound Depth (cm) 0.1 cm 08/18/24 0850 Assessment/Plan: Patient was seen and evaluated. Discussed all clinical findings Patient has developed a large blister to the medial left leg that requires deroofing. This was performed using a #11 blade. Serous drainage was expressed. Patient's surgical incision site to the left second toe amputation is healing slowly and poorly with macerated tissue and slight incisional dehiscence. This required excisional debridement to remove nonviable soft tissue and biofilm. See procedure below. Following debridement, applied silver cell, 4 x 4, Kerlix and Zechariah bandage. Moreover, on the dorsal left foot, patient has 1 full-thickness ulceration at the dorsal aspect of the first metatarsophalangeal joint that require excisional debridement. See procedure below. Following debridement, applied silver cell, 4 x 4, Kerlix and Zechariah bandage. All questions were answered to patient satisfaction. Patient understands to call with any questionsor concerns. Follow-up in 1 week This note was partially created using voice recognition software and is inherently subject to errors including those of syntax and sound-alike substitutions which may escape proofreading. In such instances, original meaning may be extrapolated by contextual derivation. Alena Mora DPM, MS Podiatric Physician & Surgeon Wound Debridement Performed by: Alena Mora DPM Authorized by: Alena Mora DPM Consent Consent obtained? verbal Consent given by: patient Risks discussed? procedural risks discussed Immediately prior to the procedure a time out was called and the performing provider verified the correct patient, procedure, equipment, support service tech, and site/side marked as required. Debridement Details Performed by: physician Debridement type: surgical Level of debridement: subcutaneous tissue Post-debridement measurements Length (cm): 1 Width (cm): 0.2 Depth (cm): 0.2 Percent debrided: 100% Surface Area (cm^2): 0.2 Area Debrided (cm^2): 0.2 Volume (cm^3): 0.04 Tissue and other material debrided: subcutaneous tissue Devitalized tissue debrided: biofilm, fibrin and slough Instrument(s) utilized: curette Bleeding: small Hemostasis obtained with: pressure Response to treatment: procedure was tolerated well documented in this [id number] Instructions* Patient Instructions* Lyndsey Powers RN - 08/18/2024 9:52 AM EST [place] , 4 x 4, Kerlix and Zechariah bandage-left leg Kerlix and Zechariah bandage on the right leg Frequency: Apply once every other day Follow up: 1 week(s) documented in this [id number] History of Present illness Narrative* Alena Mora DPM - 08/11/2024 12:52 PM ESTAssociated Order(s): Debridement Post-Procedure Diagnose(s): Skin ulcer of second toe of left foot with fat layer exposed (HCC); Chronic foot ulcer with fat layer exposed, left (HCC) Images from the original note were not included. Established Patient Visit Alena Mora DPM Patient Name: Dyllan Huertas. . Date of : 1960, 63 y.o.. Gender: male. Subjective: Patient is a pleasant 63-year-old male who presents to clinic for follow-up evaluation 6 weeks status post left partial second toe amputation secondary to osteomyelitis. Patient has other open woundson left foot. Patient has kept his Profore compression dressing clean and dry to bilateral legs. Noother pedal complaint at this time. Denies fevers, chills, nausea, vomiting, chest pain, shortness of breath, or any other constitutional symptoms. Past Medical History: Diagnosis Date Acquired equinus deformity of right foot Acquired hammer toe of right foot Angina pectoris with documented spasm ([facility]) Calluse Cellulitis of left toe Charcot's joint, right ankle and foot Chronic osteomyelitis with draining sinus, right ankle and foot ([facility]) Complication of external fixation device with internal components (HCC) Coronary artery disease Dehiscence of incision Diabetes mellitus, type 2 ([facility]) Dystrophic nail Edema Effusion of ankle and foot joint Fracture of metatarsal, closed Fungal toenail infection Hyperlipidemia Hypertension Hypothyroidism 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) Non-pressure chronic ulcer of other part of left foot limited to breakdown of skin (HCC) Non-pressure chronic ulcer of other part of right foot with fat layer exposed (HCC) limited to breakdown of skin Obesity Overflow incontinence Peripheral neuropathy Pressure ulcer of right foot, stage 2 ([facility]) S/P foot surgery, right 12/09/2019 11/20/2019Right foot reconstruction surgery with external fixation 12/02/2019 Right foot I and D Sleep apnea, obstructive does not use CPAP Tibia/fibula fracture Past Surgical History: Procedure Laterality Date APPENDECTOMY ARTHRODESIS SUBTALAR Right 05/01/2020 Procedure: RIGHT ANKLE ARTHRODESIS, SUBTALAR ARTHRODESIS RIGHT ANKLE, Bone [place] Graft From RightFibula, Application of Splint; Surgeon: Alena Mora DPM; Location: [facility]; Service: Podiatry ARTHROPLASTY TOE Right 01/25/2019 Procedure: ARTHROPLASTY 2ND TOE RIGHT FOOT; Surgeon: Rosa M Robles DPM; Location: [facility]; Service: Podiatry CABG 2017 CARDIAC SURGERY 2017 CABG tripe bypass CLOSED REDUCTION PERCUTANEOUS PINNING LOWER EXTREMITY N/A 12/02/2019 Procedure: ADJUSTMENT of EXTERNAL FIXATOR; Surgeon: Alena Mora DPM; Location: [facility]; Service: Podiatry CT COLONOSCOPY 02/24/[address] COLONOSCOPY 03/21/2023 CT COLONOSCOPY CYST REMOVED FROM CHEST N/A INCISION AND DRAINAGE FOOT AND ANKLE Right 12/02/2019 Procedure: RIGHT FOOT I&D; Surgeon: Alena Mora DPM; Location: [facility]; Service: Podiatry LIPOSUCTION METAL IN LEFT LEFT WRIST AND LEFT 5TH TOE Left ORIF FOOT FRACTURE Left 07/03/2013 5th metatarsal ORTHOPEDIC SURGERY WI AMPUTATION TOE INTERPHALANGEAL JOINT Left 06/29/2024 Procedure: left partial 2nd toe amputation; Surgeon: Alena Mora DPM; Location: [facility];Service: Podiatry RECONSTRUCTION FOOT CHARCOT Right 11/20/2019 Procedure: RIGHT FOOT RECONSTRUCTION WITH APPLICATION OF CIRCULAR STATIC EXTERNAL FIXATION; Surgeon: Alena Mora DPM; Location: [facility]; Service: Podiatry RT FOOT SURGERY Right TUMMY TUCK N/A Physical Examination: BP 128/74 Pulse 72 Temp 98.6 F (37 C) Resp 18 SpO2 92% General Appearance: Alert, cooperative, no distress, appears stated age. Podiatric Exam Vascular: DP and PT pulses are palpable. Capillary refill time is less than 3 secs to distal digits. Skin temperature is warm to cool from proximal tibial tuberosity to distal digit. + 2 pitting edema noted to bilateral lower extremities, improving Neurological: Gross sensation is intact. Protective sensation is absent using the [place] Asif monofilament. Dermatologic: Full-thickness ulceration noted to the dorsal left foot at the first metatarsophalangeal joint is improving. The previously noted wound to the left fifth metatarsophalangeal joint dorsal aspect has epithelialized. Surgical incision site to the left second toe is epithelializing but still Macerated tissue noted surrounding the incision site Musculoskeletal: Ankle joint range of motion is intact. Muscle strength is 5/5 to dorsiflexors, plantar flexors, inverters and everters. Compartments soft and compressible. No calf pain Diagnoses: 1. Skin ulcer of second toe of left foot with fat layer exposed (HCC) Ambulatory referral to Home Health CANCELED: Ambulatory referral to Home Health 2. Chronic foot ulcer with fat layer exposed, left (HCC) Ambulatory referral to Home Health CANCELED: Ambulatory referral to Home Health Media: Wound 06/29/24 1 Surgical Wound Second Toe Dorsal;Left (Active) Wound Image 07/28/24 1043 Wound Length (cm) 0.5 cm 07/28/24 1043 Wound Width (cm) 2 cm 07/28/24 1043 Wound Surface Area (cm^2) 1 cm^2 07/28/24 1043 Wound 07/14/24 Foot Left;Anterior (Active) Wound Image 07/28/24 1043 Wound Length (cm) 0.7 cm 07/28/24 1043 Wound Width (cm) 1 cm 07/28/24 1043 Wound Depth (cm) 0.1 cm 07/21/24 1008 Wound 07/21/24 Pre-tibial Left (Active) Wound Image 07/28/24 1042 Wound Length (cm) 1 cm 07/28/24 1042 Wound Width (cm) 0.5 cm 07/28/24 1042 Wound Depth (cm) 0.1 cm 07/28/24 1042 Wound 06/29/24 1 Surgical Wound Second Toe Dorsal;Left (Active) Wound Image 07/28/24 1043 Wound Length (cm) 0.5 cm 07/28/24 1043 Wound Width (cm) 2 cm 07/28/24 1043 Wound Surface Area (cm^2) 1 cm^2 07/28/24 1043 Wound 07/07/24 Third Toe Dorsal;Right (Active) Wound Image 08/04/24 1011 Wound Length (cm) 0.2 cm 08/04/24 1011 Wound Width (cm) 0.5 cm 08/04/24 1011 Wound Depth (cm) 0.1 cm 07/28/24 1044 Wound 07/14/24 Foot Left;Anterior (Active) Wound Image 08/04/24 1012 Wound Length (cm) 0.7 cm 08/04/24 1012 Wound Width (cm) 1 cm 08/04/24 1012 Wound Depth (cm) 0.1 cm 08/04/24 1012 Wound 07/21/24 Pre-tibial Left (Active) Wound Image 08/04/24 1011 Wound Length (cm) 0.5 cm 08/04/24 1011 Wound Width (cm) 0.2 cm 08/04/24 1011 Wound Depth (cm) 0.1 cm 08/04/24 1011 Wound 06/29/24 1 Surgical Wound Second Toe Dorsal;Left (Active) Wound Image 08/11/24 0936 Wound Length (cm) 1 cm 08/11/24 0936 Wound Width (cm) 0.9 cm 08/11/24 0936 Wound Depth (cm) 0.1 cm 08/11/24 0936 Wound 07/14/24 Foot Left;Anterior (Active) Wound Image 08/11/24 0937 Wound Length (cm) 0.6 cm 08/11/24 0937 Wound Width (cm) 1 cm 08/11/24 0937 Wound Depth (cm) 0.1 cm 08/11/24 0937 Wound 07/21/24 Pre-tibial Left (Active) Wound Image 08/11/24 0935 Wound Length (cm) 2 cm 08/11/24 0935 Wound Width (cm) 2.2 cm 08/11/24 0935 Wound Depth (cm) 0.1 cm 08/11/24 0935 Assessment/Plan: Patient was seen and evaluated. Discussed all clinical findings In comparison to the last clinic visit, patient's bilateral lower extremity edema has improved. No need for multilayer compression dressing today. Patient's surgical incision site to the left second toe amputation is healing well however there swapna small gapped/dehisced sites noted. Reviewed patient's wound culture showing normal skin chalino. Attoday's visit, patient's small open wounds were in need of excisional debridement to remove nonviable soft tissue and biofilm. See procedure below. Following debridement, applied silver cell, 4 x 4, Kerlix and Zechariah bandage. Moreover, on the dorsal left foot, patient has 1 full-thickness ulceration at the dorsal aspect of the first metatarsophalangeal joint that require excisional debridement. See procedure below. Following debridement, applied silver cell, 4 x 4, Kerlix and Zechariah bandage. Furthermore, an ambulatory referral to home health care was placed as patient will need dressing changed on Mondays and Wednesdays. All questions were answered to patient satisfaction. Patient understands to call with any questionsor concerns. Follow-up in 1 week This note was partially created using voice recognition software and is inherently subject to errors including those of syntax and sound-alike substitutions which may escape proofreading. In such instances, original meaning may be extrapolated by contextual derivation. Alena Mora DPM, MS Podiatric Physician & Surgeon Debridement Wound 06/29/24 1 Surgical Wound Second Toe Dorsal;Left Wound 07/14/24 Foot Left;Anterior Performed by: Alena Mora DPM Authorized by: Alena Mroa DPM Consent Consent obtained? verbal Consent given by: patient Risks discussed? procedural risks discussed Immediately prior to the procedure a time out was called and the performing provider verified the correct patient, procedure, equipment, support service tech, and site/side marked as required. Debridement Details Performed by: physician Debridement type: surgical Level of debridement: subcutaneous tissue Post-debridement measurements Length (cm): 1 Width (cm): 1.5 Depth (cm): 0.2 Percent debrided: 100% Surface Area (cm^2): 1.5 Area Debrided (cm^2): 1.5 Volume (cm^3): 0.3 Tissue and other material debrided: subcutaneous tissue Devitalized tissue debrided: biofilm, fibrin and slough Instrument(s) utilized: curette Bleeding: small Hemostasis obtained with: pressure Response to treatment: procedure was tolerated well documented in this [id number] NoteEstablished Patient Visit Alena Mora DPM Patient Name: Dyllan Huertas. . Date of : 1960, 63 y.o.. Gender: male. Subjective: Patient is a pleasant 63-year-old male who presents to clinic for follow-up evaluation 6 weeks status post left partial second toe amputation secondary to osteomyelitis. Patient has other open wounds on left foot. Patient has kept his Profore compression dressing clean and dry to bilateral legs. No other pedal complaint at this time. Denies fevers, chills, nausea, vomiting, chest pain, shortness of breath, or any other constitutional symptoms. Past Medical History: Diagnosis Date Acquired equinus deformity of right foot Acquired hammer toe of right foot Angina pectoris with documented spasm ([facility]) Calluse Cellulitis of left toe Charcot's joint, right ankle and foot Chronic osteomyelitis with draining sinus, right ankle and foot ([facility]) Complication of external fixation device with internal components ([facility]) Coronary artery disease Dehiscence of incision Diabetes mellitus, type 2 ([facility]) Dystrophic nail Edema Effusion of ankle and foot joint Fracture of metatarsal, closed Fungal toenail infection Hyperlipidemia Hypertension Hypothyroidism 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 ([facility]) Non-pressure chronic ulcer of other part of left foot limited to breakdown of skin ([facility]) Non-pressure chronic ulcer of other part of right foot with fat layer exposed ([facility]) limited to breakdown of skin Obesity Overflow incontinence Peripheral neuropathy Pressure ulcer of right foot, stage 2 ([facility]) S/P foot surgery, right 12/09/2019 11/20/2019Right foot reconstruction surgery with external fixation 12/02/2019 Right foot I and D Sleep apnea, obstructive does not use CPAP Tibia/fibula fracture Past Surgical History: Procedure Laterality Date APPENDECTOMY ARTHRODESIS SUBTALAR Right 05/01/2020 Procedure: RIGHT ANKLE ARTHRODESIS, SUBTALAR ARTHRODESIS RIGHT ANKLE, Bone [place] Graft From Right Fibula, Application of Splint; Surgeon: Alena Mora DPM; Location: [facility] OR; Service: Podiatry ARTHROPLASTY TOE Right 01/25/2019 Procedure: ARTHROPLASTY 2ND TOE RIGHT FOOT; Surgeon: Rosa M Robles DPM; Location: [facility] [place]; Service: Podiatry CABG 2017 CARDIAC SURGERY 2017 CABG tripe bypass CLOSED REDUCTION PERCUTANEOUS PINNING LOWER EXTREMITY N/A 12/02/2019 Procedure: ADJUSTMENT of EXTERNAL FIXATOR; Surgeon: Alena Mora DPM; Location: [facility] OR; Service: Podiatry CT COLONOSCOPY 02/24/[address] COLONOSCOPY 03/21/2023 CT COLONOSCOPY CYST REMOVED FROM CHEST N/A INCISION AND DRAINAGE FOOT AND ANKLE Right 12/02/2019 Procedure: RIGHT FOOT I&D; Surgeon: Alena Mora DPM; Location: [facility] OR; Service: Podiatry LIPOSUCTION METAL IN LEFT LEFT WRIST AND LEFT 5TH TOE Left ORIF FOOT FRACTURE Left 07/03/2013 5th metatarsal ORTHOPEDIC SURGERY WI AMPUTATION TOE INTERPHALANGEAL JOINT Left 06/29/2024 Procedure: left partial 2nd toe amputation; Surgeon: Alena Mora DPM; Location: [facility] OR; Service: Podiatry RECONSTRUCTION FOOT CHARCOT Right 11/20/2019 Procedure: RIGHT FOOT RECONSTRUCTION WITH APPLICATION OF CIRCULAR STATIC EXTERNAL FIXATION; Surgeon: Alena Mora DPM; Location: [facility] OR; Service: [facility]iatry [facility] Physical Examination: BP 128/74 Pulse 72 Temp 98.6 degrees F (37 degrees C) Resp 18 SpO2 92% General Appearance: Alert, cooperative, no distress, appears stated age. Podiatric Exam Vascular: DP and PT pulses are palpable. Capillary refill time is less than 3 secs to distal digits. Skin temperature is warm to cool from proximal tibial tuberosity to distal digit. + 2 pitting edema noted to bilateral lower extremities, improving Neurological: Gross sensation is intact. Protective sensation is absent using the [place] Asif monofilament. Dermatologic: Full-thickness ulceration noted to the dorsal left foot at the first metatarsophalangeal joint is improving. The previously noted wound to the left fifth metatarsophalangeal joint dorsal aspect has epithelialized. Surgical incision site to the left second toe is epithelializing but still Macerated tissue noted surrounding the incision site Musculoskeletal: Ankle joint range of motion is intact. Muscle strength is 5/5 to dorsiflexors, plantar flexors, inverters and everters. Compartments soft and compressible. No calf pain Diagnoses: 1. Skin ulcer of second toe of left foot with fat layer exposed (HCC) Ambulatory referral to Home Health CANCELED: Ambulatory referral to Home Health 2. Chronic foot ulcer with fat layer exposed, left (HCC) Ambulatory referral to Home Health CANCELED: Ambulatory referral to Home Health Media: Wound 06/29/24 1 Surgical Wound Second Toe Dorsal;Left (Active) Wound Image 07/28/24 1043 Wound Length (cm) 0.5 cm 10/ (more content not included)...[facility] 08-11-2024 Instructions* Patient Instructions* Lyndsey Powers RN - 08/11/2024 9:52 AM EST [place] to the small open wounds, 4 x 4's, Kerlix and Zechariah bandage using 4 inch from toes to knee Double layer Tubigrip on the right lower extremity Frequency: Apply once every other day Follow up: 1 week(s) documented in this [id number] History of Present illness Narrative* Lin Justice RN - 08/04/2024 11:07 AM EDTAssociated Order(s): Multi-Layer Compression Dressing Post-Procedure Diagnose(s): Osteomyelitis of second toe of left foot (HCC) Multi-layer Compression Wrap Procedure Performed for: BILAT LEGS FOR EDEMA CONTROL Performed by:: Clinician MIKAELA Procedural Pain: 0 Bandage Type: Compression Compression Layers: Multi-layer Compression Product Type: Profore Regular Dressing Applied: No Extremity Location: Below Knee * Alena Mora DPM - 08/04/2024 10:12 AM EDTAssociated Order(s): Debridement Foot Left;Anterior Post-Procedure Diagnose(s): Chronic foot ulcer with fat layer exposed, left (HCC) Images from the original note were not included. Established Patient Visit Alena Mora DPM Patient Name: Dyllan Huertas. . Date of : 1960, 63 y.o.. Gender: male. Subjective: Patient is a pleasant 63-year-old male who presents to clinic for follow-up evaluation 5 weeks status post left partial second toe amputation secondary to osteomyelitis. Patient has other open woundson left foot. Patient has kept his Profore compression dressing clean and dry to bilateral legs. Noother pedal complaint at this time. Denies fevers, chills, nausea, vomiting, chest pain, shortness of breath, or any other constitutional symptoms. Past Medical History: Diagnosis Date Acquired equinus deformity of right foot Acquired hammer toe of right foot Angina pectoris with documented spasm ([facility]) Calluse Cellulitis of left toe Charcot's joint, right ankle and foot Chronic osteomyelitis with draining sinus, right ankle and foot ([facility]) Complication of external fixation device with internal components ([facility]) Coronary artery disease Dehiscence of incision Diabetes mellitus, type 2 ([facility]) Dystrophic nail Edema Effusion of ankle and foot joint Fracture of metatarsal, closed Fungal toenail infection Hyperlipidemia Hypertension Hypothyroidism 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 ([facility]) Non-pressure chronic ulcer of other part of left foot limited to breakdown of skin ([facility]) Non-pressure chronic ulcer of other part of right foot with fat layer exposed ([facility]) limited to breakdown of skin Obesity Overflow incontinence Peripheral neuropathy Pressure ulcer of right foot, stage 2 ([facility]) S/P foot surgery, right 12/09/2019 11/20/2019Right foot reconstruction surgery with external fixation 12/02/2019 Right foot I and D Sleep apnea, obstructive does not use CPAP Tibia/fibula fracture Past Surgical History: Procedure Laterality Date APPENDECTOMY ARTHRODESIS SUBTALAR Right 05/01/2020 Procedure: RIGHT ANKLE ARTHRODESIS, SUBTALAR ARTHRODESIS RIGHT ANKLE, Bone [place] Graft From RightFibula, Application of Splint; Surgeon: Alena Mora DPM; Location: [facility] OR; Service: Podiatry ARTHROPLASTY TOE Right 01/25/2019 Procedure: ARTHROPLASTY 2ND TOE RIGHT FOOT; Surgeon: Rosa M Robles DPM; Location[facility]; Service: Podiatry CABG 2017 CARDIAC SURGERY 2017 CABG tripe bypass CLOSED REDUCTION PERCUTANEOUS PINNING LOWER EXTREMITY N/A 12/02/2019 Procedure: ADJUSTMENT of EXTERNAL FIXATOR; Surgeon: Alena Mora DPM; Location: [facility] OR; Service: Podiatry CT COLONOSCOPY 02/24/[address] COLONOSCOPY 03/21/2023 CT COLONOSCOPY CYST REMOVED FROM CHEST N/A INCISION AND DRAINAGE FOOT AND ANKLE Right 12/02/2019 Procedure: RIGHT FOOT I&D; Surgeon: Alena Mora DPM; Location: [facility] OR; Service: Podiatry LIPOSUCTION METAL IN LEFT LEFT WRIST AND LEFT 5TH TOE Left ORIF FOOT FRACTURE Left 07/03/2013 5th metatarsal ORTHOPEDIC SURGERY WI AMPUTATION TOE INTERPHALANGEAL JOINT Left 06/29/2024 Procedure: left partial 2nd toe amputation; Surgeon: Alena Mora DPM; Location: [facility] OR;Service: Podiatry RECONSTRUCTION FOOT CHARCOT Right 11/20/2019 Procedure: RIGHT FOOT RECONSTRUCTION WITH APPLICATION OF CIRCULAR STATIC EXTERNAL FIXATION; Surgeon: Alena Mora DPM; Location: [facility]; Service: Podiatry RT FOOT SURGERY Right [place] N/A Physical Examination: BP (!) 138/96 Pulse 69 Temp 97.9 F (36.6 C) Resp 18 SpO2 95% General Appearance: Alert, cooperative, no distress, appears stated age. Podiatric Exam Vascular: DP and PT pulses are palpable. Capillary refill time is less than 3 secs to distal digits. Skin temperature is warm to cool from proximal tibial tuberosity to distal digit. + 2 pitting edema noted to bilateral lower extremities, improving Neurological: Gross sensation is intact. Protective sensation is absent using the [place] Asif monofilament. Dermatologic: Full-thickness ulceration noted to the dorsal left foot at the first metatarsophalangeal joint is improving. The previously noted wound to the left fifth metatarsophalangeal joint dorsal aspect has epithelialized. Surgical incision site to the left second toe is epithelializing but still Macerated tissue noted surrounding the incision site Musculoskeletal: Ankle joint range of motion is intact. Muscle strength is 5/5 to dorsiflexors, plantar flexors, inverters and everters. Compartments soft and compressible. No calf pain Diagnoses: 1. Skin ulcer of second toe of left foot with fat layer exposed (HCC) Wound Aerobic Culture 2. Osteomyelitis of second toe of left foot (HCC) Multi-Layer Compression Dressing 3. Bilateral lower extremity edema Media: Wound 06/29/24 1 Surgical Wound Second Toe Dorsal;Left (Active) Wound Image 07/28/24 1043 Wound Length (cm) 0.5 cm 07/28/24 1043 Wound Width (cm) 2 cm 07/28/24 1043 Wound Surface Area (cm^2) 1 cm^2 07/28/24 1043 Wound 07/14/24 Foot Left;Anterior (Active) Wound Image 07/28/24 1043 Wound Length (cm) 0.7 cm 07/28/24 1043 Wound Width (cm) 1 cm 07/28/24 1043 Wound Depth (cm) 0.1 cm 07/21/24 1008 Wound 07/21/24 Pre-tibial Left (Active) Wound Image 07/28/24 1042 Wound Length (cm) 1 cm 07/28/24 1042 Wound Width (cm) 0.5 cm 07/28/24 1042 Wound Depth (cm) 0.1 cm 07/28/24 1042 Wound 06/29/24 1 Surgical Wound Second Toe Dorsal;Left (Active) Wound Image 07/28/24 1043 Wound Length (cm) 0.5 cm 07/28/24 1043 Wound Width (cm) 2 cm 07/28/24 1043 Wound Surface Area (cm^2) 1 cm^2 07/28/24 1043 Wound 07/07/24 Third Toe Dorsal;Right (Active) Wound Image 08/04/24 1011 Wound Length (cm) 0.2 cm 08/04/24 1011 Wound Width (cm) 0.5 cm 08/04/24 1011 Wound Depth (cm) 0.1 cm 07/28/24 1044 Wound 07/14/24 Foot Left;Anterior (Active) Wound Image 08/04/24 1012 Wound Length (cm) 0.7 cm 08/04/24 1012 Wound Width (cm) 1 cm 08/04/24 1012 Wound Depth (cm) 0.1 cm 08/04/24 1012 Wound 07/21/24 Pre-tibial Left (Active) Wound Image 08/04/24 1011 Wound Length (cm) 0.5 cm 08/04/24 1011 Wound Width (cm) 0.2 cm 08/04/24 1011 Wound Depth (cm) 0.1 cm 08/04/24 1011 Assessment/Plan: Patient was seen and evaluated. Discussed all clinical findings In comparison to the last clinic visit, patient's bilateral lower extremity edema has improved. However, edema has not resolved. Patient's surgical incision site to the left second toe amputation is healing well however there swapna small gapped/dehisced sites noted. A wound culture was obtained and sent to microbiology for culture and sensitivity. Following, applied Iodoflex secured with Steri-Strips, 4 x 4's and dry sterile dressing. Moreover, on the dorsal left foot, patient has 1 full-thickness ulceration at the dorsal aspect of the first metatarsophalangeal joint that require excisional debridement. See procedure below. Following debridement, applied Kb, 4 x 4 Due to patient's +2 pitting edema noted to bilateral lower extremity and his risk for worsening ulceration and blistering to bilateral legs, I ordered bilateral Profore multilayer compression dressing to be be applied to bilateral lower extremities. Patient is to keep dressing clean and dry for 1 week. All questions were answered to patient satisfaction. Patient understands to call with any questionsor concerns. Follow-up in 1 week This note was partially created using voice recognition software and is inherently subject to errors including those of syntax and sound-alike substitutions which may escape proofreading. In such instances, original meaning may be extrapolated by contextual derivation. Alena Mora DPM, MS Podiatric Physician & Surgeon Debridement Foot Left;Anterior Wound 07/14/24 Foot Left;Anterior Performed by: Alena Mora DPM Authorized by: Alena Mora DPM Consent Consent obtained? verbal Consent given by: patient Risks discussed? procedural risks discussed Time out called at 08/04/2024 12:39 PM Immediately prior to the procedure a time out was called and the performing provider verified the correct patient, procedure, equipment, support service tech, and site/side marked as required. Debridement Details Performed by: physician Debridement type: surgical Level of debridement: subcutaneous tissue Pre-debridement measurements Length (cm): 0.7 Width (cm): 1 Depth (cm): 0.1 Surface Area (cm^2): 0.7 Post-debridement measurements Length (cm): 0.8 Width (cm): 1.2 Depth (cm): 0.2 Percent debrided: 100% Surface Area (cm^2): 0.96 Area Debrided (cm^2): 0.96 Volume (cm^3): 0.19 Tissue and other material debrided: subcutaneous tissue Devitalized tissue debrided: biofilm, fibrin and slough Instrument(s) utilized: curette Bleeding: small Hemostasis obtained with: pressure Response to treatment: procedure was tolerated well documented in this [id number] Instructions* Patient Instructions* Lin Justice RN - 08/04/2024 10:46 AM EDT Iodoflex to the left second toe secured with Steri-Strips Kb to the dorsal first metatarsophalangeal joint Profore to bilateral legs Frequency: Keep dressing clean and dry Follow up: 1 week(s) documented in this [id number] NoteEstablished Patient Visit Alena Mora DPM Patient Name: Dyllan Huertas. . Date of : 1960, 63 y.o.. Gender: male. Subjective: Patient is a pleasant 63-year-old male who presents to clinic for follow-up evaluation 5 weeks status post left partial second toe amputation secondary to osteomyelitis. Patient has other open wounds on left foot. Patient has kept his Profore compression dressing clean and dry to bilateral legs. No other pedal complaint at this time. Denies fevers, chills, nausea, vomiting, chest pain, shortness of breath, or any other constitutional symptoms. Past Medical History: Diagnosis Date Acquired equinus deformity of right foot Acquired hammer toe of right foot Angina pectoris with documented spasm ([facility]) Calluse Cellulitis of left toe Charcot's joint, right ankle and foot Chronic osteomyelitis with draining sinus, right ankle and foot ([facility]) Complication of external fixation device with internal components ([facility]) Coronary artery disease Dehiscence of incision Diabetes mellitus, type 2 ([facility]) Dystrophic nail Edema Effusion of ankle and foot joint Fracture of metatarsal, closed Fungal toenail infection Hyperlipidemia Hypertension Hypothyroidism 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) Non-pressure chronic ulcer of other part of left foot limited to breakdown of skin (HCC) Non-pressure chronic ulcer of other part of right foot with fat layer exposed (HCC) limited to breakdown of skin Obesity Overflow incontinence Peripheral neuropathy Pressure ulcer of right foot, stage 2 (HCC) S/P foot surgery, right 12/09/2019 11/20/2019Right foot reconstruction surgery with external fixation 12/02/2019 Right foot I and D Sleep apnea, obstructive does not use CPAP Tibia/fibula fracture Past Surgical History: Procedure Laterality Date APPENDECTOMY ARTHRODESIS SUBTALAR Right 05/01/2020 Procedure: RIGHT ANKLE ARTHRODESIS, SUBTALAR ARTHRODESIS RIGHT ANKLE, Bone [place] Graft From Right Fibula, Application of Splint; Surgeon: Alena Mora DPM; Location: [facility]; Service: Podiatry ARTHROPLASTY TOE Right 01/25/2019 Procedure: ARTHROPLASTY 2ND TOE RIGHT FOOT; Surgeon: Rosa M Robles DPM; Location: [facility] [place]; Service: Podiatry CABG 2017 CARDIAC SURGERY 2017 CABG tripe bypass CLOSED REDUCTION PERCUTANEOUS PINNING LOWER EXTREMITY N/A 12/02/2019 Procedure: ADJUSTMENT of EXTERNAL FIXATOR; Surgeon: Alena Mora DPM; Location: [facility]; Service: Podiatry CT COLONOSCOPY 02/24/[address] COLONOSCOPY 03/21/2023 CT COLONOSCOPY CYST REMOVED FROM CHEST N/A INCISION AND DRAINAGE FOOT AND ANKLE Right 12/02/2019 Procedure: RIGHT FOOT I&D; Surgeon: Alena Mora DPM; Location: [facility]; Service: Podiatry LIPOSUCTION METAL IN LEFT LEFT WRIST AND LEFT 5TH TOE Left ORIF FOOT FRACTURE Left 07/03/2013 5th metatarsal ORTHOPEDIC SURGERY WI AMPUTATION TOE INTERPHALANGEAL JOINT Left 06/29/2024 Procedure: left partial 2nd toe amputation; Surgeon: Alena Mora DPM; Location: [facility]; Service: Podiatry RECONSTRUCTION FOOT CHARCOT Right 11/20/2019 Procedure: RIGHT FOOT RECONSTRUCTION WITH APPLICATION OF CIRCULAR STATIC EXTERNAL FIXATION; Surgeon: Alena Mora DPM; Location: [facility]; Service: Podiatry RT FOOT SURGERY Right [place] N/A Physical Examination: BP (!) 138/96 Pulse 69 Temp 97.9 degrees F (36.6 degrees C) Resp 18 SpO2 95% General Appearance: Alert, cooperative, no distress, appears stated age. Podiatric Exam Vascular: DP and PT pulses are palpable. Capillary refill time is less than 3 secs to distal digits. Skin temperature is warm to cool from proximal tibial tuberosity to distal digit. + 2 pitting edema noted to bilateral lower extremities. Neurological: Gross sensation is intact. Protective sensation is absent using the [place] Asif monofilament. Dermatologic: Full-thickness ulceration noted to the dorsal left foot at the first metatarsophalangeal joint is improving. The previously noted wound to the left fifth metatarsophalangeal joint dorsal aspect has epithelialized. Surgical incision site to the left second toe is epithelializing. Macerated tissue noted surrounding the incision site Musculoskeletal: Ankle joint range of motion is intact. Muscle strength is 5/5 to dorsiflexors, plantar flexors, inverters and everters. Compartments soft and compressible. No calf pain Diagnoses: No diagnosis found. Media: Wound 06/29/24 1 Surgical Wound Second Toe Dorsal;Left (Active) Wound Image 07/28/24 1043 Wound Length (cm) 0.5 cm 07/28/24 1043 Wound Width (cm) 2 cm 07/28/24 1043 Wound Surface Area (cm^2) 1 cm^2 07/28/24 1043 Wound 07/14/24 Foot Left;Anterior (Active) Wound Image 07/28/24 1043 Wound Length (cm) 0.7 cm 07/28/24 1043 Wound Width (cm) 1 cm 07/28/24 1043 Wound Depth (cm) 0.1 cm 07/21/24 1008 (more content not included)...[facility]11-01-2024 NoteEstablished Patient Visit Alena Mora DPM Patient Name: Dyllan Huertas. . Date of : 1960, 63 y.o.. Gender: male. Subjective: Patient is a pleasant 63-year-old male who presents to clinic for follow-up evaluation 5 weeks status post left partial second toe amputation secondary to osteomyelitis. Patient has other open wounds on left foot. Patient has kept his Profore compression dressing clean and dry to bilateral legs. No other pedal complaint at this time. Denies fevers, chills, nausea, vomiting, chest pain, shortness of breath, or any other constitutional symptoms. Past Medical History: Diagnosis Date Acquired equinus deformity of right foot Acquired hammer toe of right foot Angina pectoris with documented spasm ([facility]) Calluse Cellulitis of left toe Charcot's joint, right ankle and foot Chronic osteomyelitis with draining sinus, right ankle and foot ([facility]) Complication of external fixation device with internal components ([facility]) Coronary artery disease Dehiscence of incision Diabetes mellitus, type 2 ([facility]) Dystrophic nail Edema Effusion of ankle and foot joint Fracture of metatarsal, closed Fungal toenail infection Hyperlipidemia Hypertension Hypothyroidism 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 ([facility]) Non-pressure chronic ulcer of other part of left foot limited to breakdown of skin ([facility]) Non-pressure chronic ulcer of other part of right foot with fat layer exposed ([facility]) limited to breakdown of skin Obesity Overflow incontinence Peripheral neuropathy Pressure ulcer of right foot, stage 2 ([facility]) S/P foot surgery, right 12/09/2019 11/20/2019Right foot reconstruction surgery with external fixation 12/02/2019 Right foot I and D Sleep apnea, obstructive does not use CPAP Tibia/fibula fracture Past Surgical History: Procedure Laterality Date APPENDECTOMY ARTHRODESIS SUBTALAR Right 05/01/2020 Procedure: RIGHT ANKLE ARTHRODESIS, SUBTALAR ARTHRODESIS RIGHT ANKLE, Bone [place] Graft From Right Fibula, Application of Splint; Surgeon: Alena Mora DPM; Location: [facility]; Service: Podiatry ARTHROPLASTY TOE Right 01/25/2019 Procedure: ARTHROPLASTY 2ND TOE RIGHT FOOT; Surgeon: Rosa M Robles DPM; Location[facility]; Service: Podiatry CABG 2017 CARDIAC SURGERY 2017 CABG tripe bypass CLOSED REDUCTION PERCUTANEOUS PINNING LOWER EXTREMITY N/A 12/02/2019 Procedure: ADJUSTMENT of EXTERNAL FIXATOR; Surgeon: Alena Mora DPM; Location: [facility]; Service: Podiatry CT COLONOSCOPY 02/24/[address] COLONOSCOPY 03/21/2023 CT COLONOSCOPY CYST REMOVED FROM CHEST N/A INCISION AND DRAINAGE FOOT AND ANKLE Right 12/02/2019 Procedure: RIGHT FOOT I&D; Surgeon: Alena Mora DPM; Location: [facility]; Service: Podiatry LIPOSUCTION METAL IN LEFT LEFT WRIST AND LEFT 5TH TOE Left ORIF FOOT FRACTURE Left 07/03/2013 5th metatarsal ORTHOPEDIC SURGERY WI AMPUTATION TOE INTERPHALANGEAL JOINT Left 06/29/2024 Procedure: left partial 2nd toe amputation; Surgeon: Alena Mora DPM; Location: [facility]; Service: Podiatry RECONSTRUCTION FOOT CHARCOT Right 11/20/2019 Procedure: RIGHT FOOT RECONSTRUCTION WITH APPLICATION OF CIRCULAR STATIC EXTERNAL FIXATION; Surgeon: Alena Mora DPM; Location: [facility]; Service: Podiatry RT FOOT SURGERY Right [place] N/A Physical Examination: BP (!) 138/96 Pulse 69 Temp 97.9 degrees F (36.6 degrees C) Resp 18 SpO2 95% General Appearance: Alert, cooperative, no distress, appears stated age. Podiatric Exam Vascular: DP and PT pulses are palpable. Capillary refill time is less than 3 secs to distal digits. Skin temperature is warm to cool from proximal tibial tuberosity to distal digit. + 2 pitting edema noted to bilateral lower extremities, improving Neurological: Gross sensation is intact. Protective sensation is absent using the [place] Asif monofilament. Dermatologic: Full-thickness ulceration noted to the dorsal left foot at the first metatarsophalangeal joint is improving. The previously noted wound to the left fifth metatarsophalangeal joint dorsal aspect has epithelialized. Surgical incision site to the left second toe is epithelializing but still Macerated tissue noted surrounding the incision site Musculoskeletal: Ankle joint range of motion is intact. Muscle strength is 5/5 to dorsiflexors, plantar flexors, inverters and everters. Compartments soft and compressible. No calf pain Diagnoses: 1. Skin ulcer of second toe of left foot with fat layer exposed (HCC) Wound Aerobic Culture 2. Osteomyelitis of second toe of left foot (HCC) Multi-Layer Compression Dressing 3. 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 [id number] Miscellaneous Notes* Case Communication - Ana Rios RN - 07/31/2024 4:50 PM EDTDis[facility] care for dressing changes. documented in this [id number] NoteEstablished Patient Visit Alena Mora DPM Patient Name: Dyllan Huertas. . Date of : 1960, 63 y.o.. Gender: male. Subjective: Patient is a pleasant 63-year-old male who presents to clinic for follow-up evaluation 4 weeks status post left partial second toe amputation secondary to osteomyelitis. Patient has other open wounds on left foot. Patient has kept his Profore compression dressing clean and dry to bilateral legs. No other pedal complaint at this time. Denies fevers, chills, nausea, vomiting, chest pain, shortness of breath, or any other constitutional symptoms. Past Medical History: Diagnosis Date Acquired equinus deformity of right foot Acquired hammer toe of right foot Angina pectoris with documented spasm ([facility]) Calluse Cellulitis of left toe Charcot's joint, right ankle and foot Chronic osteomyelitis with draining sinus, right ankle and foot ([facility]) Complication of external fixation device with internal components ([facility]) Coronary artery disease Dehiscence of incision Diabetes mellitus, type 2 ([facility]) Dystrophic nail Edema Effusion of ankle and foot joint Fracture of metatarsal, closed Fungal toenail infection Hyperlipidemia Hypertension Hypothyroidism 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 ([facility]) Non-pressure chronic ulcer of other part of left foot limited to breakdown of skin ([facility]) Non-pressure chronic ulcer of other part of right foot with fat layer exposed ([facility]) limited to breakdown of skin Obesity Overflow incontinence Peripheral neuropathy Pressure ulcer of right foot, stage 2 ([facility]) S/P foot surgery, right 12/09/2019 11/20/2019Right foot reconstruction surgery with external fixation 12/02/2019 Right foot I and D Sleep apnea, obstructive does not use CPAP Tibia/fibula fracture Past Surgical History: Procedure Laterality Date APPENDECTOMY ARTHRODESIS SUBTALAR Right 05/01/2020 Procedure: RIGHT ANKLE ARTHRODESIS, SUBTALAR ARTHRODESIS RIGHT ANKLE, Bone [place] Graft From Right Fibula, Application of Splint; Surgeon: Alena Mora DPM; Location: [facility]; Service: Podiatry ARTHROPLASTY TOE Right 01/25/2019 Procedure: ARTHROPLASTY 2ND TOE RIGHT FOOT; Surgeon: Rosa M Robles DPM; [place] [facility]; Service: Podiatry CABG 2017 CARDIAC SURGERY 2017 CABG tripe bypass CLOSED REDUCTION PERCUTANEOUS PINNING LOWER EXTREMITY N/A 12/02/2019 Procedure: ADJUSTMENT of EXTERNAL FIXATOR; Surgeon: Alena Mora DPM; Location: [facility] OR; Service: Podiatry CT COLONOSCOPY 02/24/[address] COLONOSCOPY 03/21/2023 CT COLONOSCOPY CYST REMOVED FROM CHEST N/A INCISION AND DRAINAGE FOOT AND ANKLE Right 12/02/2019 Procedure: RIGHT FOOT I&D; Surgeon: Alena Mora DPM; Location: [facility]; Service: Podiatry LIPOSUCTION METAL IN LEFT LEFT WRIST AND LEFT 5TH TOE Left ORIF FOOT FRACTURE Left 07/03/2013 5th metatarsal ORTHOPEDIC SURGERY [place] AMPUTATION TOE INTERPHALANGEAL JOINT Left 06/29/2024 Procedure: left partial 2nd toe amputation; Surgeon: Alena Mora DPM; Location: [facility]; Service: Podiatry RECONSTRUCTION FOOT CHARCOT Right 11/20/2019 Procedure: RIGHT FOOT RECONSTRUCTION WITH APPLICATION OF CIRCULAR STATIC EXTERNAL FIXATION; Surgeon: Alena Mora DPM; Location: [facility]; Service: Podiatry RT FOOT SURGERY Right TUMMY TUCK N/A Physical Examination: BP 123/63 Pulse 73 Temp 97.4 degrees F (36.3 degrees C) (Infrared) Resp 18 SpO2 92% General Appearance: Alert, cooperative, no distress, appears stated age. Podiatric Exam Vascular: DP and PT pulses are palpable. Capillary refill time is less than 3 secs to distal digits. Skin temperature is warm to cool from proximal tibial tuberosity to distal digit. + 2 pitting edema noted to bilateral lower extremities. Neurological: Gross sensation is intact. Protective sensation is absent using the [place] Asif monofilament. Dermatologic: Full-thickness ulceration noted to the dorsal left foot at the first metatarsophalangeal joint is improving. The previously noted wound to the left fifth metatarsophalangeal joint dorsal aspect has epithelialized. Surgical incision site to the left second toe is epithelializing. Macerated tissue noted surrounding the incision site Musculoskeletal: Ankle joint range of motion is intact. Muscle strength is 5/5 to dorsiflexors, plantar flexors, inverters and everters. Compartments soft and compressible. No calf pain Diagnoses: 1. Bilateral lower extremity edema Multi-Layer Compression Dressing 2. Skin ulcer of second toe of left foot with fat layer exposed (HCC) 3. Chronic foot ulcer with fat layer exposed, left (HCC) Media: Wound 06/29/24 1 Surgical Wound Second Toe Dorsal;Left (Active) Wound Image 07/28/24 1043 Wound Length (cm) 0.5 cm 07/28/24 1043 Wound Width (cm) 2 cm 07/28/24 1043 Wound Surface Area (cm^2) 1 cm^2 07/28/24 1043 Wo (more content not included)...[facility]2024 History of Present illness Narrative* Alena Mora DPM - 07/28/2024 1:24 PM EDTAssociated Order(s): Debridement Post-Procedure Diagnose(s): Skin ulcer of second toe of left foot with fat layer exposed (HCC); Chronic foot ulcer with fat layer exposed, left (HCC) Images from the original note were not included. Established Patient Visit Alena Mora DPM Patient Name: Dyllan Huertas. . Date of : 1960, 63 y.o.. Gender: male. Subjective: Patient is a pleasant 63-year-old male who presents to clinic for follow-up evaluation 4 weeks status post left partial second toe amputation secondary to osteomyelitis. Patient has other open woundson left foot. Patient has kept his Profore compression dressing clean and dry to bilateral legs. Noother pedal complaint at this time. Denies fevers, chills, nausea, vomiting, chest pain, shortness of breath, or any other constitutional symptoms. Past Medical History: Diagnosis Date Acquired equinus deformity of right foot Acquired hammer toe of right foot Angina pectoris with documented spasm (HCC) Calluse Cellulitis of left toe Charcot's joint, right ankle and foot Chronic osteomyelitis with draining sinus, right ankle and foot ([facility]) Complication of external fixation device with internal components ([facility]) Coronary artery disease Dehiscence of incision Diabetes mellitus, type 2 ([facility]) Dystrophic nail Edema Effusion of ankle and foot joint Fracture of metatarsal, closed Fungal toenail infection Hyperlipidemia Hypertension Hypothyroidism 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 ([facility]) Non-pressure chronic ulcer of other part of left foot limited to breakdown of skin ([facility]) Non-pressure chronic ulcer of other part of right foot with fat layer exposed ([facility]) limited to breakdown of skin Obesity Overflow incontinence Peripheral neuropathy Pressure ulcer of right foot, stage 2 ([facility]) S/P foot surgery, right 12/09/2019 11/20/2019Right foot reconstruction surgery with external fixation 12/02/2019 Right foot I and D Sleep apnea, obstructive does not use CPAP Tibia/fibula fracture Past Surgical History: Procedure Laterality Date APPENDECTOMY ARTHRODESIS SUBTALAR Right 05/01/2020 Procedure: RIGHT ANKLE ARTHRODESIS, SUBTALAR ARTHRODESIS RIGHT ANKLE, Bone [place] Graft From RightFibula, Application of Splint; Surgeon: Alena Mora DPM; Location: [facility]; Service: Podiatry ARTHROPLASTY TOE Right 01/25/2019 Procedure: ARTHROPLASTY 2ND TOE RIGHT FOOT; Surgeon: Rosa M Robles DPM; [place] [facility]; Service: Podiatry CABG 2017 CARDIAC SURGERY 2017 CABG tripe bypass CLOSED REDUCTION PERCUTANEOUS PINNING LOWER EXTREMITY N/A 12/02/2019 Procedure: ADJUSTMENT of EXTERNAL FIXATOR; Surgeon: Alena Mora DPM; Location: [facility]; Service: Podiatry CT COLONOSCOPY 02/24/[address] COLONOSCOPY 03/21/2023 CT COLONOSCOPY CYST REMOVED FROM CHEST N/A INCISION AND DRAINAGE FOOT AND ANKLE Right 12/02/2019 Procedure: RIGHT FOOT I&D; Surgeon: Alena Mora DPM; Location: [facility]; Service: Podiatry LIPOSUCTION METAL IN LEFT LEFT WRIST AND LEFT 5TH TOE Left ORIF FOOT FRACTURE Left 07/03/2013 5th metatarsal ORTHOPEDIC SURGERY [place] AMPUTATION TOE INTERPHALANGEAL JOINT Left 06/29/2024 Procedure: left partial 2nd toe amputation; Surgeon: Alena Mora DPM; [facility]: [facility];Service: Podiatry RECONSTRUCTION FOOT CHARCOT Right 11/20/2019 Procedure: RIGHT FOOT RECONSTRUCTION WITH APPLICATION OF CIRCULAR STATIC EXTERNAL FIXATION; Surgeon: Alena Mora DPM; Location: [facility]; Service: Podiatry RT FOOT SURGERY Right SHARMILA JEONG N/A Physical Examination: BP 123/63 Pulse 73 Temp 97.4 F (36.3 C) (Infrared) Resp 18 SpO2 92% General Appearance: Alert, cooperative, no distress, appears stated age. Podiatric Exam Vascular: DP and PT pulses are palpable. Capillary refill time is less than 3 secs to distal digits. Skin temperature is warm to cool from proximal tibial tuberosity to distal digit. + 2 pitting edema noted to bilateral lower extremities. Neurological: Gross sensation is intact. Protective sensation is absent using the [place] Asif monofilament. Dermatologic: Full-thickness ulceration noted to the dorsal left foot at the first metatarsophalangeal joint is improving. The previously noted wound to the left fifth metatarsophalangeal joint dorsal aspect has epithelialized. Surgical incision site to the left second toe is epithelializing. Macerated tissue noted surrounding the incision site Musculoskeletal: Ankle joint range of motion is intact. Muscle strength is 5/5 to dorsiflexors, plantar flexors, inverters and everters. Compartments soft and compressible. No calf pain Diagnoses: 1. Bilateral lower extremity edema Multi-Layer Compression Dressing 2. Skin ulcer of second toe of left foot with fat layer exposed (HCC) 3. Chronic foot ulcer with fat layer exposed, left (HCC) Media: Wound 06/29/24 1 Surgical Wound Second Toe Dorsal;Left (Active) Wound Image 07/28/24 1043 Wound Length (cm) 0.5 cm 07/28/24 1043 Wound Width (cm) 2 cm 07/28/24 1043 Wound Surface Area (cm^2) 1 cm^2 07/28/24 1043 Wound 07/14/24 Foot Left;Anterior (Active) Wound Image 07/28/24 1043 Wound Length (cm) 0.7 cm 07/28/24 1043 Wound Width (cm) 1 cm 07/28/24 1043 Wound Depth (cm) 0.1 cm 07/21/24 1008 Wound 07/21/24 Pre-tibial Left (Active) Wound Image 07/28/24 1042 Wound Length (cm) 1 cm 07/28/24 1042 Wound Width (cm) 0.5 cm 07/28/24 1042 Wound Depth (cm) 0.1 cm 07/28/24 1042 Assessment/Plan: Patient was seen and evaluated. Discussed all clinical findings In comparison to the last clinic visit, patient's bilateral lower extremity edema has improved. However, patient continues to have an open wound to the left anterior leg. Patient's surgical incision site to the left second toe amputation is healing well however there swapna small gapped/dehisced sites noted. Moreover, on the dorsal left foot, patient has 1 full-thickness ulceration at the dorsal aspect of the first metatarsophalangeal joint that require excisional debridement. See procedure below. Following debridement, applied Kb, 4 x 4 Due to patient's +2 pitting edema noted to bilateral lower extremity and his risk for worsening ulceration and blistering to bilateral legs, I ordered bilateral Profore multilayer compression dressing to be be applied to bilateral lower extremities. Patient is to keep dressing clean and dry for 1 week. All questions were answered to patient satisfaction. Patient understands to call with any questionsor concerns. Follow-up in 1 week This note was partially created using voice recognition software and is inherently subject to errors including those of syntax and sound-alike substitutions which may escape proofreading. In such instances, original meaning may be extrapolated by contextual derivation. Alena Mora DPM, MS Podiatric Physician & Surgeon Debridement Wound 07/14/24 Foot Left;Anterior Wound 06/29/24 1 Surgical Wound Second Toe Dorsal;Left Performed by: Alena Mora DPM Authorized by: Alena Mora DPM Consent Consent obtained? verbal Consent given by: patient Risks discussed? procedural risks discussed Time out called at 07/28/2024 11:38 AM Immediately prior to the procedure a time out was called and the performing provider verified the correct patient, procedure, equipment, support service tech, and site/side marked as required. Debridement Details Performed by: physician Debridement type: surgical Level of debridement: subcutaneous tissue Post-debridement measurements Length (cm): 1.5 Width (cm): 1.5 Depth (cm): 0.2 Percent debrided: 100% Surface Area (cm^2): 2.25 Area Debrided (cm^2): 2.25 Volume (cm^3): 0.45 Tissue and other material debrided: subcutaneous tissue Devitalized tissue debrided: biofilm, fibrin and slough Instrument(s) utilized: curette Bleeding: small Hemostasis obtained with: pressure Response to treatment: procedure was tolerated well * Katie Munguia RN - 07/28/2024 11:01 AM EDTAssociated Order(s): Multi- Layer Compression Dressing Post-Procedure Diagnose(s): Bilateral lower extremity edema Multi-layer Compression Wrap Procedure Performed for: Bilateral lower legs Performed by:: Clinician Katie Procedural Pain: 0 Bandage Type: Compression Compression Layers: Multi-layer Compression Product Type: Profore Regular Dressing Applied: Yes Extremity Location: Below Knee documented in this [id number] NoteThKatie sanders RN 07/28/2024 2:34 PM Multi-layer Compression Wrap Procedure Performed for: Bilateral lower legs Performed by:: Clinician Katie Procedural Pain: 0 Bandage Type: Compression Compression Layers: Multi-layer Compression Product Type: Profore Regular Dressing Applied: Yes Extremity Location: Below [id number] Instructions* Patient Instructions* Katie Munguia RN - 07/28/2024 11:01 AM EDT Kb to open wounds and Profore to bilateral legs Frequency: Keep dressing clean and dry Follow up: 1 week(s) documented in this [id number] NoteEstablished Patient Visit Alena Mora DPM Patient Name: Dyllan Huertas. . Date of : 1960, 63 y.o.. Gender: male. Subjective: Patient is a pleasant 63-year-old male who presents to clinic for follow-up evaluation 2 weeks status post left partial second toe amputation secondary to osteomyelitis. Patient has other open wounds on left foot. States that the nurse has been doing dressing at home. No other pedal complaint at this time. Denies fevers, chills, nausea, vomiting, chest pain, shortness of breath, or any other constitutional symptoms. Past Medical History: Diagnosis Date Acquired equinus deformity of right foot Acquired hammer toe of right foot Angina pectoris with documented spasm ([facility]) Calluse Cellulitis of left toe Charcot's joint, right ankle and foot Chronic osteomyelitis with draining sinus, right ankle and foot ([facility]) Complication of external fixation device with internal components ([facility]) Coronary artery disease Dehiscence of incision Diabetes mellitus, type 2 ([facility]) Dystrophic nail Edema Effusion of ankle and foot joint Fracture of metatarsal, closed Fungal toenail infection Hyperlipidemia Hypertension Hypothyroidism 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 ([facility]) Non-pressure chronic ulcer of other part of left foot limited to breakdown of skin ([facility]) Non-pressure chronic ulcer of other part of right foot with fat layer exposed ([facility]) limited to breakdown of skin Obesity Overflow incontinence Peripheral neuropathy Pressure ulcer of right foot, stage 2 ([facility]) S/P foot surgery, right 12/09/2019 11/20/2019Right foot reconstruction surgery with external fixation 12/02/2019 Right foot I and D Sleep apnea, obstructive does not use CPAP Tibia/fibula fracture Past Surgical History: Procedure Laterality Date APPENDECTOMY ARTHRODESIS SUBTALAR Right 05/01/2020 Procedure: RIGHT ANKLE ARTHRODESIS, SUBTALAR ARTHRODESIS RIGHT ANKLE, Bone [place] Graft From Right Fibula, Application of Splint; Surgeon: Alena Mora DPM; [facility]; Service: Podiatry ARTHROPLASTY TOE Right 01/25/2019 Procedure: ARTHROPLASTY 2ND TOE RIGHT FOOT; Surgeon: Rosa M Robles DPM; [facility]; Service: Podiatry CABG 2017 CARDIAC SURGERY 2017 CABG tripe bypass CLOSED REDUCTION PERCUTANEOUS PINNING LOWER EXTREMITY N/A 12/02/2019 Procedure: ADJUSTMENT of EXTERNAL FIXATOR; Surgeon: Alena Mora DPM; Location: [facility]; Service: Podiatry CT COLONOSCOPY 02/24/[address] COLONOSCOPY 03/21/2023 CT COLONOSCOPY CYST REMOVED FROM CHEST N/A INCISION AND DRAINAGE FOOT AND ANKLE Right 12/02/2019 Procedure: RIGHT FOOT I&D; Surgeon: Alena Mora DPM; [facility]: [facility]; Service: Podiatry LIPOSUCTION METAL IN LEFT LEFT WRIST AND LEFT 5TH TOE Left ORIF FOOT FRACTURE Left 07/03/2013 5th metatarsal ORTHOPEDIC SURGERY [place] AMPUTATION TOE INTERPHALANGEAL JOINT Left 06/29/2024 Procedure: left partial 2nd toe amputation; Surgeon: Alena Mora DPM; [facility]; Service: Podiatry RECONSTRUCTION FOOT CHARCOT Right 11/20/2019 Procedure: RIGHT FOOT RECONSTRUCTION WITH APPLICATION OF CIRCULAR STATIC EXTERNAL FIXATION; Surgeon: Alena Mora DPM; [facility]; Service: Podiatry RT FOOT SURGERY Right TUMMY TUCK N/A Physical Examination: BP (!) 158/94 Pulse 93 Temp 97.2 degrees F (36.2 degrees C) (Infrared) Resp 18 SpO2 95% General Appearance: Alert, cooperative, no distress, appears stated age. Podiatric Exam Vascular: DP and PT pulses are palpable. Capillary refill time is less than 3 secs to distal digits. Skin temperature is warm to cool from proximal tibial tuberosity to distal digit. +3 pitting edema noted to bilateral lower extremities. Neurological: Gross sensation is intact. Protective sensation is absent using the [place] Asif monofilament. Dermatologic: Full-thickness ulceration noted to the dorsal left foot at the first metatarsophalangeal joint at the fifth metatarsophalangeal joint. Surgical incision site to the left second toe is well coapted with sutures intact. Macerated tissue noted surrounding the incision site Musculoskeletal: Ankle joint range of motion is intact. Muscle strength is 5/5 to dorsiflexors, plantar flexors, inverters and everters. Compartments soft and compressible. No calf pain Diagnoses: No diagnosis found. Media: Assessment/Plan: Patient was seen and evaluated. Discussed all clinical findings Patient's surgical incision site to the left second toe amputation is well coapted. Mild macerated tissue noted. Applied Betadine to the surgical incision site. No Xeroform. Sutures to remain clean and dry. On the dorsal left foot, patient has 2 wounds that do not require excisional debridement. Applied Kb, 4 x 4, Kerlix and Tubigrip. Due to patient's +3 pitting edema noted to bilateral (more content not included)...[facility]10-18-2024 NoteEstablished Patient Visit Alena Mora DPM Patient Name: Dyllan Huertas. . Date of : 1960, 63 y.o.. Gender: male. Subjective: Patient is a pleasant 63-year-old male who presents to clinic for follow-up evaluation 3 weeks status post left partial second toe amputation secondary to osteomyelitis. Patient has other open wounds on left foot. Patient has upped his Profore compression dressing clean and dry to bilateral legs. No other pedal complaint at this time. Denies fevers, chills, nausea, vomiting, chest pain, shortness of breath, or any other constitutional symptoms. Past Medical History: Diagnosis Date Acquired equinus deformity of right foot Acquired hammer toe of right foot Angina pectoris with documented spasm ([facility]) Calluse Cellulitis of left toe Charcot's joint, right ankle and foot Chronic osteomyelitis with draining sinus, right ankle and foot ([facility]) Complication of external fixation device with internal components ([facility]) Coronary artery disease Dehiscence of incision Diabetes mellitus, type 2 ([facility]) Dystrophic nail Edema Effusion of ankle and foot joint Fracture of metatarsal, closed Fungal toenail infection Hyperlipidemia Hypertension Hypothyroidism 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 ([facility]) Non-pressure chronic ulcer of other part of left foot limited to breakdown of skin ([facility]) Non-pressure chronic ulcer of other part of right foot with fat layer exposed ([facility]) limited to breakdown of skin Obesity Overflow incontinence Peripheral neuropathy Pressure ulcer of right foot, stage 2 ([facility]) S/P foot surgery, right 12/09/2019 11/20/2019Right foot reconstruction surgery with external fixation 12/02/2019 Right foot I and D Sleep apnea, obstructive does not use CPAP Tibia/fibula fracture Past Surgical History: Procedure Laterality Date APPENDECTOMY ARTHRODESIS SUBTALAR Right 05/01/2020 Procedure: RIGHT ANKLE ARTHRODESIS, SUBTALAR ARTHRODESIS RIGHT ANKLE, Bone [place] Graft From Right Fibula, Application of Splint; Surgeon: Alena Mora DPM; Location: [facility] OR; Service: Podiatry ARTHROPLASTY TOE Right 01/25/2019 Procedure: ARTHROPLASTY 2ND TOE RIGHT FOOT; Surgeon: Rosa M Robles DPM; Location: [facility] [place]; Service: Podiatry CABG 2017 CARDIAC SURGERY 2017 CABG tripe bypass CLOSED REDUCTION PERCUTANEOUS PINNING LOWER EXTREMITY N/A 12/02/2019 Procedure: ADJUSTMENT of EXTERNAL FIXATOR; Surgeon: Alena Mora DPM; Location: [facility]; Service: Podiatry CT COLONOSCOPY 02/24/[address] COLONOSCOPY 03/21/2023 CT COLONOSCOPY CYST REMOVED FROM CHEST N/A INCISION AND DRAINAGE FOOT AND ANKLE Right 12/02/2019 Procedure: RIGHT FOOT I&D; Surgeon: Alena Mora DPM; Location: [facility]; Service: Podiatry LIPOSUCTION METAL IN LEFT LEFT WRIST AND LEFT 5TH TOE Left ORIF FOOT FRACTURE Left 07/03/2013 5th metatarsal ORTHOPEDIC SURGERY WI AMPUTATION TOE INTERPHALANGEAL JOINT Left 06/29/2024 Procedure: left partial 2nd toe amputation; Surgeon: Alena Mora DPM; Location: [facility]; Service: Podiatry RECONSTRUCTION FOOT CHARCOT Right 11/20/2019 Procedure: RIGHT FOOT RECONSTRUCTION WITH APPLICATION OF CIRCULAR STATIC EXTERNAL FIXATION; Surgeon: Alena Mora DPM; Location: [facility]; Service: Podiatry RT FOOT SURGERY Right TUMMY TUCK N/A Physical Examination: BP (!) 158/94 Pulse 93 Temp 97.2 degrees F (36.2 degrees C) (Infrared) Resp 18 SpO2 95% General Appearance: Alert, cooperative, no distress, appears stated age. Podiatric Exam Vascular: DP and PT pulses are palpable. Capillary refill time is less than 3 secs to distal digits. Skin temperature is warm to cool from proximal tibial tuberosity to distal digit. + 2 pitting edema noted to bilateral lower extremities. Neurological: Gross sensation is intact. Protective sensation is absent using the [place] Asif monofilament. Dermatologic: Full-thickness ulceration noted to the dorsal left foot at the first metatarsophalangeal joint and at the fifth metatarsophalangeal joint. Surgical incision site to the left second toe is well coapted with sutures intact. Macerated tissue noted surrounding the incision site Musculoskeletal: Ankle joint range of motion is intact. Muscle strength is 5/5 to dorsiflexors, plantar flexors, inverters and everters. Compartments soft and compressible. No calf pain Diagnoses: 1. Bilateral lower extremity edema Multi-Layer Compression Dressing 2. Chronic ulcer of right foot with fat layer exposed (HCC) 3. Skin ulcer of second toe of left foot with fat layer exposed (HCC) Media: New blister left leg Assessment/Plan: Patient was seen and evaluated. Discussed all clinical findings In comparison to the last clinic visit, patient's bilateral lower extremity edema has improved. However, patient did develop a new blister to the anterior aspect (more content not included)...[facility]10-14-2024 Note Established Patient Visit Alena Mora DPM Patient Name: Dyllan Huertas. . Date of : 1960, 63 y.o.. Gender: male. Subjective: Patient is a pleasant 63-year-old male who presents to clinic for follow-up evaluation 2 weeks status post left partial second toe amputation secondary to osteomyelitis. Patient has other open wounds on left foot. States that the nurse has been doing dressing at home. No other pedal complaint at this time. Denies fevers, chills, nausea, vomiting, chest pain, shortness of breath, or any other constitutional symptoms. Past Medical History: Diagnosis Date Acquired equinus deformity of right foot Acquired hammer toe of right foot Angina pectoris with documented spasm ([facility]) Calluse Cellulitis of left toe Charcot's joint, right ankle and foot Chronic osteomyelitis with draining sinus, right ankle and foot ([facility]) Complication of external fixation device with internal components (HCC) Coronary artery disease Dehiscence of incision Diabetes mellitus, type 2 (HCC) Dystrophic nail Edema Effusion of ankle and foot joint Fracture of metatarsal, closed Fungal toenail infection Hyperlipidemia Hypertension Hypothyroidism 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) Non-pressure chronic ulcer of other part of left foot limited to breakdown of skin (HCC) Non-pressure chronic ulcer of other part of right foot with fat layer exposed (HCC) limited to breakdown of skin Obesity Overflow incontinence Peripheral neuropathy Pressure ulcer of right foot, stage 2 ([facility]) S/P foot surgery, right 12/09/2019 11/20/2019Right foot reconstruction surgery with external fixation 12/02/2019 Right foot I and D Sleep apnea, obstructive does not use CPAP Tibia/fibula fracture Past Surgical History: Procedure Laterality Date APPENDECTOMY ARTHRODESIS SUBTALAR Right 05/01/2020 Procedure: RIGHT ANKLE ARTHRODESIS, SUBTALAR ARTHRODESIS RIGHT ANKLE, Bone [place] Graft From Right Fibula, Application of Splint; Surgeon: Alena Mora DPM; Location: [facility] OR; Service: Podiatry ARTHROPLASTY TOE Right 01/25/2019 Procedure: ARTHROPLASTY 2ND TOE RIGHT FOOT; Surgeon: Rosa M Robles DPM; Location: [facility] [place]; Service: Podiatry CABG 2017 CARDIAC SURGERY 2017 CABG tripe bypass CLOSED REDUCTION PERCUTANEOUS PINNING LOWER EXTREMITY N/A 12/02/2019 Procedure: ADJUSTMENT of EXTERNAL FIXATOR; Surgeon: Alena Mora DPM; Location: [facility] OR; Service: Podiatry CT COLONOSCOPY 02/24/[address] COLONOSCOPY 03/21/2023 CT COLONOSCOPY CYST REMOVED FROM CHEST N/A INCISION AND DRAINAGE FOOT AND ANKLE Right 12/02/2019 Procedure: RIGHT FOOT I&D; Surgeon: Alena Mora DPM; Location: [facility] OR; Service: Podiatry LIPOSUCTION METAL IN LEFT LEFT WRIST AND LEFT 5TH TOE Left ORIF FOOT FRACTURE Left 07/03/2013 5th metatarsal ORTHOPEDIC SURGERY WI AMPUTATION TOE INTERPHALANGEAL JOINT Left 06/29/2024 Procedure: left partial 2nd toe amputation; Surgeon: Alena Mora DPM; Location: [facility] OR; Service: Podiatry RECONSTRUCTION FOOT CHARCOT Right 11/20/2019 Procedure: RIGHT FOOT RECONSTRUCTION WITH APPLICATION OF CIRCULAR STATIC EXTERNAL FIXATION; Surgeon: Alena Mora DPM; Location: [facility] OR; Service: Podiatry RT FOOT SURGERY Right TUMMY TUCK N/A Physical Examination: BP (!) 160/81 Pulse 88 Temp 97.6 degrees F (36.4 degrees C) (Infrared) Resp 18 SpO2 92% General Appearance: Alert, cooperative, no distress, appears stated age. Podiatric Exam Vascular: DP and PT pulses are palpable. Capillary refill time is less than 3 secs to distal digits. Skin temperature is warm to cool from proximal tibial tuberosity to distal digit. +3 pitting edema noted to bilateral lower extremities. Neurological: Gross sensation is intact. Protective sensation is absent using the [place] Asif monofilament. Dermatologic: Full-thickness ulceration noted to the dorsal left foot at the first metatarsophalangeal joint at the fifth metatarsophalangeal joint. Surgical incision site to the left second toe is well coapted with sutures intact. Macerated tissue noted surrounding the incision site Musculoskeletal: Ankle joint range of motion is intact. Muscle strength is 5/5 to dorsiflexors, plantar flexors, inverters and everters. Compartments soft and compressible. No calf pain Diagnoses: 1. Bilateral lower extremity edema 2. Osteomyelitis of second toe of left foot (HCC) Multi-Layer Compression Dressing 3. Skin ulcer of second toe of left foot with fat layer exposed ([facility]) Multi-Layer Compression Dressing Media: Assessment/Plan: Patient was seen and evaluated. Discussed all clinical findings Patient's surgical incision site to the left second toe amputation is well coapted. Mild macerated tissue noted. Applied Betadine to the surgical incision site. No Xeroform. Sutures to remain (more content not included)...[facility]10-14-2024 History of Present illness Narrative* Alena Mora DPM - 07/17/2024 4:09 AM EDT Images from the original note were not included. Established Patient Visit Alena Mora DPM Patient Name: Dyllan Huertas. . Date of : 1960, 63 y.o.. Gender: male. Subjective: Patient is a pleasant 63-year-old male who presents to clinic for follow-up evaluation 2 weeks status post left partial second toe amputation secondary to osteomyelitis. Patient has other open woundson left foot. States that the nurse has been doing dressing at home. No other pedal complaint at this time. Denies fevers, chills, nausea, vomiting, chest pain, shortness of breath, or any other constitutional symptoms. Past Medical History: Diagnosis Date Acquired equinus deformity of right foot Acquired hammer toe of right foot Angina pectoris with documented spasm ([facility]) Calluse Cellulitis of left toe Charcot's joint, right ankle and foot Chronic osteomyelitis with draining sinus, right ankle and foot ([facility]) Complication of external fixation device with internal components ([facility]) Coronary artery disease Dehiscence of incision Diabetes mellitus, type 2 ([facility]) Dystrophic nail Edema Effusion of ankle and foot joint Fracture of metatarsal, closed Fungal toenail infection Hyperlipidemia Hypertension Hypothyroidism 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 ([facility]) Non-pressure chronic ulcer of other part of left foot limited to breakdown of skin ([facility]) Non-pressure chronic ulcer of other part of right foot with fat layer exposed (HCC) limited to breakdown of skin Obesity Overflow incontinence Peripheral neuropathy Pressure ulcer of right foot, stage 2 (HCC) S/P foot surgery, right 12/09/2019 11/20/2019Right foot reconstruction surgery with external fixation 12/02/2019 Right foot I and D Sleep apnea, obstructive does not use CPAP Tibia/fibula fracture Past Surgical History: Procedure Laterality Date APPENDECTOMY ARTHRODESIS SUBTALAR Right 05/01/2020 Procedure: RIGHT ANKLE ARTHRODESIS, SUBTALAR ARTHRODESIS RIGHT ANKLE, Bone [place] Graft From RightFibula, Application of Splint; Surgeon: Alena Mora DPM; Location: [facility] OR; Service: Podiatry ARTHROPLASTY TOE Right 01/25/2019 Procedure: ARTHROPLASTY 2ND TOE RIGHT FOOT; Surgeon: Rosa M Robles DPM; Location: [facility]; Service: Podiatry CABG 2017 CARDIAC SURGERY 2017 CABG tripe bypass CLOSED REDUCTION PERCUTANEOUS PINNING LOWER EXTREMITY N/A 12/02/2019 Procedure: ADJUSTMENT of EXTERNAL FIXATOR; Surgeon: Alena Mora DPM; Location: [facility] OR; Service: Podiatry CT COLONOSCOPY 02/24/[address] COLONOSCOPY 03/21/2023 CT COLONOSCOPY CYST REMOVED FROM CHEST N/A INCISION AND DRAINAGE FOOT AND ANKLE Right 12/02/2019 Procedure: RIGHT FOOT I&D; Surgeon: Alena Mora DPM; Location: [facility] OR; Service: Podiatry LIPOSUCTION METAL IN LEFT LEFT WRIST AND LEFT 5TH TOE Left ORIF FOOT FRACTURE Left 07/03/2013 5th metatarsal ORTHOPEDIC SURGERY [place] AMPUTATION TOE INTERPHALANGEAL JOINT Left 06/29/2024 Procedure: left partial 2nd toe amputation; Surgeon: Alena Mora DPM; Location: [facility] OR;Service: Podiatry RECONSTRUCTION FOOT CHARCOT Right 11/20/2019 Procedure: RIGHT FOOT RECONSTRUCTION WITH APPLICATION OF CIRCULAR STATIC EXTERNAL FIXATION; Surgeon: Alena Mora DPM; Location: [facility] OR; Service: Podiatry RT FOOT SURGERY Right TUMMY TUCK N/A Physical Examination: BP (!) 160/81 Pulse 88 Temp 97.6 F (36.4 C) (Infrared) Resp 18 SpO2 92% General Appearance: Alert, cooperative, no distress, appears stated age. Podiatric Exam Vascular: DP and PT pulses are palpable. Capillary refill time is less than 3 secs to distal digits. Skin temperature is warm to cool from proximal tibial tuberosity to distal digit. +3 pitting edemanoted to bilateral lower extremities. Neurological: Gross sensation is intact. Protective sensation is absent using the [place] Asif monofilament. Dermatologic: Full-thickness ulceration noted to the dorsal left foot at the first metatarsophalangeal joint at the fifth metatarsophalangeal joint. Surgical incision site to the left second toe is well coapted with sutures intact. Macerated tissue noted surrounding the incision site Musculoskeletal: Ankle joint range of motion is intact. Muscle strength is 5/5 to dorsiflexors, plantar flexors, inverters and everters. Compartments soft and compressible. No calf pain Diagnoses: 1. Bilateral lower extremity edema 2. Osteomyelitis of second toe of left foot (HCC) Multi-Layer Compression Dressing 3. Skin ulcer of second toe of left foot with fat layer exposed (HCC) Multi- Layer Compression Dressing Media: Assessment/Plan: Patient was seen and evaluated. Discussed all clinical findings Patient's surgical incision site to the left second toe amputation is well coapted. Mild macerated tissue noted. Applied Betadine to the surgical incision site. No Xeroform. Sutures to remain clean and dry. On the dorsal left foot, patient has 2 wounds that do not require excisional debridement. Applied Kb, 4 x 4, Kerlix and Tubigrip. Due to patient's +3 pitting edema noted to bilateral lower extremity and his risk for ulceration tobilateral legs, I ordered bilateral Profore multilayer compression dressing to be be applied to bilateral lower extremities. Patient is to keep dressing clean and dry for 1 week. All questions were answered to patient satisfaction. Patient understands to call with any questionsor concerns. Follow-up in 1 week This note was partially created using voice recognition software and is inherently subject to errors including those of syntax and sound-alike substitutions which may escape proofreading. In such instances, original meaning may be extrapolated by contextual derivation. Alena Mora DPM, MS Podiatric Physician & Surgeon * Lin Justice RN - 07/14/2024 11:39 AM EDTAssociated Order(s): Multi-Layer Compression Dressing Post-Procedure Diagnose(s): Skin ulcer of second toe of left foot with fat layer exposed (HCC); Osteomyelitis of second toe of left foot (HCC) Multi-layer Compression Wrap Procedure Performed for: BILAT LEGS FOR EDEMA CONTROL Performed by:: Clinician MIKAELA Procedural Pain: 0 Bandage Type: Compression Compression Layers: Multi-layer Compression Product Type: Profore Regular Dressing Applied: No Extremity Location: Below Knee documented in this [id number] Instructions* Patient Instructions* Lin Justice RN - 07/14/2024 11:18 AM EDT Xeroform to incision, Kb to open wounds on the left foot, 4 x 4's-left leg Peripheral to bilateral legs....profore verbal order DR Mora Frequency: Keep clean and dry for 1 week Follow up: 1 week(s) documented in this [id number] History of Present illness Narrative* Jace Reeder, - 07/10/2024 12:20 PM EDT Subjective Patient ID: Dyllan Huertas is a 63 y.o. male who presents for Hospital Follow-up (Just saw patient 06/21 for regular office visit/Here for hospital follow up from foot 2nd toe tip amputation ). 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 He was admitted for IV antibiotics and had debridenemnt and amputation of right second toe, partial. He was discharged on oral antibiotics. The leg and scrotal swelling that he was experiencing has resolved. Review of Systems Respiratory: Negative for cough and shortness of breath. Cardiovascular: Negative for chest pain and leg swelling. Gastrointestinal: Negative for constipation. Musculoskeletal: Negative for back pain. Objective BP 140/80 Pulse 83 Ht 1.803 m (5' 11) BMI 40.73 kg/m Physical Exam Constitutional: General: He is not in acute distress. Appearance: Normal appearance. HENT: Head: Normocephalic. Nose: Nose normal. Mouth/Throat: Pharynx: No oropharyngeal exudate. Eyes: General: Right eye: No discharge. Left eye: No discharge. Extraocular Movements: Extraocular movements intact. Pupils: Pupils are equal, round, and reactive to light. Cardiovascular: Rate and Rhythm: Normal rate and regular rhythm. Heart sounds: No murmur heard. No gallop. Pulmonary: Effort: Pulmonary effort is normal. No respiratory distress. Breath sounds: Normal breath sounds. No wheezing. Musculoskeletal: General: No swelling. Normal range of motion. Comments: Isela corrective shoes with wrapping Skin: General: Skin is warm and dry. Coloration: Skin is not jaundiced. Neurological: General: No focal deficit present. Mental Status: He is alert and oriented to person, place, and time. Cranial Nerves: No cranial nerve deficit. Psychiatric: Mood and Affect: Mood normal. Behavior: Behavior normal. Assessment/Plan Problem List Items Addressed This Visit Benign prostatic hyperplasia with urinary obstruction DM (diabetes mellitus), type 2 with neurological complications Hypothyroidism Hyperlipidemia Obesity, morbid (Multi) Hypertension Other Visit Diagnoses Other chronic osteomyelitis of foot, unspecified laterality (Multi) - Primary Relevant Medications levoFLOXacin (Levaquin) 500 mg tablet Osteomyelitis s/p debridement and partial right second toe amputation - following with Dr Mora , has appt on Wednesday - using prizm - has home care with wound care - asking for extenion of antibiotihcs until sees podiatry,. Sent rx - reviewed hospital documentation including imaging, documentation, labs 2. DMII , diabetic neuropathy, [place] foot s/p surgery -A1c 10.3% -> 9.0% - pt would like to not change meds as he knows he can do better with checking his blood sugars and diet - continue gabapentin - continue metformin 1000mg po bid - recommend eye exam 3. HTN, CHF, CAD s/p CABG x 3 2017 - sees Dr Dailey in [place] - continue chlorthalidone 25mg po daily - coreg 25mg po bid - continue lisinopril 20mg po daily - edema is resolved for now 4. HLD - continue fenofibrate - continue crestor 5. BPH - on proscar and flomax Final diagnoses: [M86.679] Other chronic osteomyelitis of foot, unspecified laterality (Multi) [E78.2] Mixed hyperlipidemia [I10] Primary hypertension [E11.49] DM (diabetes mellitus), type 2 with neurological complications [E03.9] Acquired hypothyroidism [E66.01] Obesity, morbid (Multi) [N40.1, N13.8] Benign prostatic hyperplasia with urinary obstruction documented in this [facility] Work Phone: 1(658) 287-316410-04-2024 NoteEstablished Patient Visit Alena Mora DPM Patient Name: Dyllan Huertas. . Date of : 1960, 63 y.o.. Gender: male. Subjective: Patient is a pleasant 63-year-old male who presents to clinic for follow-up evaluation 1 week status post left partial second toe amputation secondary to osteomyelitis. Patient has other open wounds on left foot. States that the nurse has been doing dressing at home. No other pedal complaint at this time. Denies fevers, chills, nausea, vomiting, chest pain, shortness of breath, or any other constitutional symptoms. Past Medical History: Diagnosis Date Acquired equinus deformity of right foot Acquired hammer toe of right foot Angina pectoris with documented spasm ([facility]) Calluse Cellulitis of left toe Charcot's joint, right ankle and foot Chronic osteomyelitis with draining sinus, right ankle and foot ([facility]) Complication of external fixation device with internal components (HCC) Coronary artery disease Dehiscence of incision Diabetes mellitus, type 2 ([facility]) Dystrophic nail Edema Effusion of ankle and foot joint Fracture of metatarsal, closed Fungal toenail infection Hyperlipidemia Hypertension Hypothyroidism 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) Non-pressure chronic ulcer of other part of left foot limited to breakdown of skin (HCC) Non-pressure chronic ulcer of other part of right foot with fat layer exposed ([facility]) limited to breakdown of skin Obesity Overflow incontinence Peripheral neuropathy Pressure ulcer of right foot, stage 2 ([facility]) S/P foot surgery, right 12/09/2019 11/20/2019Right foot reconstruction surgery with external fixation 12/02/2019 Right foot I and D Sleep apnea, obstructive does not use CPAP Tibia/fibula fracture Past Surgical History: Procedure Laterality Date APPENDECTOMY ARTHRODESIS SUBTALAR Right 05/01/2020 Procedure: RIGHT ANKLE ARTHRODESIS, SUBTALAR ARTHRODESIS RIGHT ANKLE, Bone [place] Graft From Right Fibula, Application of Splint; Surgeon: Alena Mora DPM; Location: [facility]; Service: Podiatry ARTHROPLASTY TOE Right 01/25/2019 Procedure: ARTHROPLASTY 2ND TOE RIGHT FOOT; Surgeon: Rosa M Robles DPM; Location: [facility] [place]; Service: Podiatry CABG 2017 CARDIAC SURGERY 2017 CABG tripe bypass CLOSED REDUCTION PERCUTANEOUS PINNING LOWER EXTREMITY N/A 12/02/2019 Procedure: ADJUSTMENT of EXTERNAL FIXATOR; Surgeon: Alena Mora DPM; Location: [facility] OR; Service: Podiatry CT COLONOSCOPY 02/24/[address] COLONOSCOPY 03/21/2023 CT COLONOSCOPY CYST REMOVED FROM CHEST N/A INCISION AND DRAINAGE FOOT AND ANKLE Right 12/02/2019 Procedure: RIGHT FOOT I&D; Surgeon: Alena Mora DPM; Location: [facility] OR; Service: Podiatry LIPOSUCTION METAL IN LEFT LEFT WRIST AND LEFT 5TH TOE Left ORIF FOOT FRACTURE Left 07/03/2013 5th metatarsal ORTHOPEDIC SURGERY WI AMPUTATION TOE INTERPHALANGEAL JOINT Left 06/29/2024 Procedure: left partial 2nd toe amputation; Surgeon: Alena Mora DPM; Location: [facility]; Service: Podiatry RECONSTRUCTION FOOT CHARCOT Right 11/20/2019 Procedure: RIGHT FOOT RECONSTRUCTION WITH APPLICATION OF CIRCULAR STATIC EXTERNAL FIXATION; Surgeon: Alena Mora DPM; Location: [facility] OR; Service: Podiatry RT FOOT SURGERY Right [facility] N/A Physical Examination: BP (P) 119/78 Pulse (P) 81 Temp (P) 98 degrees F (36.7 degrees C) (Infrared) Resp (P) 18 SpO2 (P) 92% General Appearance: Alert, cooperative, no distress, appears stated age. Podiatric Exam Vascular: DP and PT pulses are palpable. Capillary refill time is less than 3 secs to distal digits. Skin temperature is warm to cool from proximal tibial tuberosity to distal digit. Neurological: Gross sensation is intact. Protective sensation is absent using the [place] Asif monofilament. Dermatologic: Full-thickness ulceration noted to the dorsal left foot at the first metatarsophalangeal joint at the fifth metatarsophalangeal joint. Surgical incision site to the left second toe is well coapted with sutures intact. Macerated tissue noted surrounding the incision site Musculoskeletal: Ankle joint range of motion is intact. Muscle strength is 5/5 to dorsiflexors, plantar flexors, inverters and everters. Compartments soft and compressible. No calf pain Diagnoses: 1. Chronic ulcer of right foot with fat layer exposed ([facility]) 2. Osteomyelitis of toe of left foot ([facility]) Ambulatory referral to Wound Clinic 3. Diabetic peripheral neuropathy ([facility]) Media: Assessment/Plan: Patient was seen and evaluated. Discussed all clinical findings Patient's surgical incision site to the left second toe amputation is well coapted. Macerated tissue noted. Applied Betadine to the surgical incision site. No Xeroform. Sutures to remain clean and dry. On the dorsal left foot, patient has 2 wounds that require excisional debr (more content not included)...[facility]09-27-2024 NotePatient Name: yDllan Huertas Admit Date: [id number] MR #: [id number] : 1960 Physicians: Jace Reeder DO (Family); No ref. provider found (Referring) Assessment: Patient with Left second toe ulceration Left second toe osteomyelitis, status post partial amputation of the toe. S/p right lower extremity ulcer Diabetes with neuropathy Plan:Continue present management. Continue patient on IV cefepime Follow-up with lab, culture and sensitivity CRP and ESR, Wound culture: Showing Enterobacter cloacae complex MRI left foot: With osteomyelitis involving the second distal phalanx, particular at the tuft. With overlying skin ulceration and edema along the second toe suggesting cellulitis with no abscess. I appreciate podiatry. Status post left second toe amputation Daily wound dressing will be according to podiatry. We will continue to follow Disposition Comment: Likely to DC home on oral antibiotics, p.o. levofloxacin. Follow-up with the clinic in 2 weeks Subjective: Patient reevaluated today, with no new symptoms, no fever or chills reported. Patient had a Tmax of 98.3. Saturating 90% on room air. Patient was status post excision of ulceration and partial amputation of the second toe. Exam: PACU Vitals 06/30/24 0757 BP: (!) 159/77 Pulse: 71 Resp: 16 Temp: 97.9 degrees F (36.6 degrees C) SpO2: (!) 88% Allergies: Patient has no known allergies. Medications Reviewed. Current Facility-Administered Medications: acetaminophen (TYLENOL) tablet 650 mg, 650 mg, Oral, Q4H PRN, Michele Pompa MD aluminum-magnesium hydroxide-simethicone (MAALOX PLUS) 200-200-20 mg/5 mL suspension 30 mL, 30 mL, Oral, Q4H PRN, Michele Pompa MD aspirin EC tablet 81 mg, 81 mg, Oral, Daily, Michele Pompa MD, 81 mg at 06/30/24 0854 atorvastatin (LIPITOR) tablet 40 mg, 40 mg, Oral, Nightly, Michele Pompa MD, 40 mg at 06/29/242001 bisacodyL (DULCOLAX) suppository 10 mg, 10 mg, Rectal, Daily PRN, Michele Pompa MD calcium carbonate (TUMS) chewable tablet 1,000 mg, 1,000 mg, Oral, Daily, Michele Pompa MD, 1,000 mg at 06/30/24 0854 carvediloL (COREG) tablet 12.5 mg, 12.5 mg, Oral, BID, Michele Pompa MD, 12.5 mg at 06/30/24 0853 cefePIMe-dextrose (MAXIPIME) 2 gram/50 mL IVPB 2,000 mg, 2,000 mg, Intravenous, Q12H, Michele Pompa MD, Last Rate: 100 mL/hr at 06/30/24 1242, 2,000 mg at 06/30/24 1242 chlorthalidone (HYGROTON) tablet 25 mg, 25 mg, Oral, Daily, Michele Pompa MD, 25 mg at 06/30/24 0854 cholecalciferol (vitamin D3) tablet 2,000 Units, 2,000 Units, Oral, Daily, Michele Pompa MD, 2,000 Units at 06/30/24 0854 docusate sodium (COLACE) capsule 100 mg, 100 mg, Oral, Daily, Michele Pompa MD, 100 mg at 06/30/24 0853 enoxaparin (LOVENOX) syringe 40 mg, 40 mg, Subcutaneous, Daily, Michele Pompa MD, 40 mg at 06/30/24 0854 fenofibrate tablet 160 mg, 160 mg, Oral, Daily, Michele Pompa MD, 160 mg at 06/30/24 0853 ferrous sulfate tablet 325 mg, 325 mg, Oral, Daily with breakfast, Michele Pompa MD, 325 mg at 06/30/24 08 finasteride (PROSCAR) tablet 2.5 mg, 2.5 mg, Oral, Once per day on Wednesday, Michele Pompa MD, 2.5 mg at 06/28/241902 gabapentin (NEURONTIN) capsule 300 mg, 300 mg, Oral, Nightly, Michele Pompa MD, 300 mg at 06/29/242001 insulin glargine (LANTUS) injection 10 Units, 10 Units, Subcutaneous, Nightly, Shavon Haq CNP, 10 Units at 06/29/242001 insulin lispro (AdmeLOG,HumaLOG) injection 0-15 Units, 0-15 Units, Subcutaneous, at bedtime, 5 Units at 06/29/242002 AND Notify physician, , , Until Discontinued, Helena Sheldon CNP insulin lispro (AdmeLOG,HumaLOG) injection 0-30 Units, 0-30 Units, Subcutaneous, TID AC, Shavon Haq CNP, 15 Units at 06/30/24 1234 lactated Ringers infusion, 100 mL/hr, Intravenous, Continuous, Dyllan Gill MD, Last Rate: 100 mL/hr at 06/30/24 0852, 100 mL/hr at 06/30/24 0852 lactated Ringers infusion, 100 mL/hr, Intravenous, Continuous, Dyllan Gill MD, Stopped at 06/29/24 1301 levothyroxine (SYNTHROID, LEVOTHROID) tablet 112 mcg, 112 mcg, Oral, Once per day on Wednesday, Michele Pompa MD, 112 mcg at 06/30/24 0527 Insert Indwelling Urethral Catheter, , , Once AND Maintain and Assess Indwelling Urethral Catheter, , , Q12H AND Remove and Discontinue Indwelling Urethral Catheter - Remove PER NURSING POLICY , , , Once AND lidocaine HCL (UROJET/GLYDO) 2 % applicator 1 Application, 1 Application, Intra-urethral, PRN, Helena Sheldon, JUDD lisinopriL (PRINIVIL,ZESTRIL) tablet 20 mg, 20 mg, Oral, BID, Michele Pompa MD, 20 mg at 06/30/24 0854 magnesium hydroxide (MOM) 400 mg/5 mL suspension 2,400 mg, 30 mL, Oral, Daily PRN (more content not included)...[facility]09-27-2024 NoteHMS DISCHARGE SUMMARY -- [facility] Dyllan Huertas Admitted: 06/23/2024 Discharge Date: 06/30/24 PCP Handoff Recommended Outpatient Testing Follow up with Podiatry , ID in 2 weeks and PCP Results Pending At Discharge none Clinical Summary Dyllan Huertas is a 63 y.o. male patient of Jace Reeder, with history of IDDM2 with neuropathy, toe ulcer, CAD, HTN, HLD, hypothyroidism, JAYDEN, obesity, who presented to [facility] on 06/23/2024 with left toe ulcer. Left 2nd toe ulcer with osteomyelitis, POA Chronic ulcer of the right leg with fat layer exposed, POA left partial 2nd toe amputation 06-29 XR left foot : A broken cannulated screw is noted in the proximal 5th metatarsal, similar to prior. . No acute fracture or dislocation. No bony erosion identified. MRI foot: osteomyelitis of the 2nd distal phalanx with edema along the second toe, cellulitis. Wound aerobic culture on 06/23: grew rare enterobacter cloacae complex Repeat wound aerobic culture on 06/24: negative. ID consulted. Appreciate recs. On Cefepime (Day #3) Podiatry consulted Appreciate recs. Sp bedside sharp excisional debridement by Dr. Robles on 06/24. Daily dressing changes with Xeroform, DSD, and Zechariah per podiatry. Patient will likely be discharged home on oral AxABIs normal post op vital signs stable ; no pain will stop fluids when taking po well ID for oral AX ; if they write for he can be discharged home ok with Podiatry to discharge home Nonweightbearing as much as possible on the left with a surgical shoe. He can put his heel down to steady himself. He has done this before, he is set up at home with a wheelchair which he knows how to navigate. Generally comes to [facility]ound Clinic in a wheelchair too, so he will continue doing that. He was agreeable to home health to help with dressings, otherwise he does them himself. . Acute on chronic combined systolic and diastolic heart failure Mitral valve regurgitation Tricuspid valve regurgitation TTE 06/23: LVH with LVEF 30%, reduced RV function; grade II diastolic dysfunction, mild aortic and tricuspid valve regurgitation. (Previous TTE 2020 showing LVEF 29%). On room air. CXR negative. -4.5L/24 hours with IV Bumex Transition IV Bumex to oral bumex tomorrow. Daily weights, Strict I/O Cardiology consult. No contraindications to procedure IDDM2 w/ peripheral polyneuropathy: A1c on 06/23: 9 NPH 70/30 home dose held On home Metformin and gabapentin Accuchecks AC/HS with ISS coverage. Glucose remains in the 200s. Start Lantus 10u. Up-titrate as needed. Coronary Artery Disease Essential HTN Dyslipidemia ASA, statin, Coreg, omega-3 fatty acids, fenofibrate, chlorthalidone, lisinopril Hypothyroidism: Levothyroxine JAYDEN: Does not use CPAP BPH: Overflow incontinence: Finasteride and tamsulosin Schulte while diuresing to get accurate outpt Obesity, BMI 39.05: Encourage active lifestyle, diet modification, and weight reduction Scrotal edema:resolved US- Diffuse scrotal edema.Small bilateral hydroceles. Urology consult remove schulte prior to discharge for voiding trials; established with Dr Izquierdo schulte discontinued Discharge Medications Discharge Medications Medications To Continue Details aspirin 81 MG EC tablet Take 1 (one) tablet (81 mg total) by mouth daily . bumetanide 0.5 MG tablet Commonly known as: BUMEX Take 1 (one) tablet (0.5 mg total) by mouth daily . calcium carbonate 160 mg calcium (400 mg) Chew Chew and Swallow 1 (one) tablet (1,000 mg total) daily . carvediloL 12.5 MG tablet Commonly known as: COREG Take 1 (one) tablet (12.5 mg total) by mouth 2 (two) times a day . Quantity: 60 tablet chlorthalidone 25 MG tablet Commonly known as: HYGROTON Take 0.5 (one-half) tablet (12.5 mg total) by mouth daily . cholecalciferol (vitamin D3) 1,000 unit tablet Take 2 (two) tablets (2,000 Units total) by mouth daily . DOCOSAHEXAENOIC ACID ORAL Take by mouth . docusate sodium 100 MG capsule Commonly known as: COLACE Take 1 (one) capsule (100 mg total) by mouth daily . fenofibrate 160 MG tablet Take 1 (one) tablet (160 mg total) by mouth daily . ferrous sulfate 325 (65 FE) MG tablet Take 1 (one) tablet (325 mg total) by mouth daily with breakfast . finasteride 5 mg tablet Commonly known as: PROSCAR Take 0.5 (one-half) tablet (2.5 mg total) by mouth Wednesday, Wednesday, Wednesday at bedtime . fish oil-omega-3 fatty acids 300-1,000 mg capsule Take 2 (two) capsules by mouth daily . furosemide 40 MG tablet Commonly known as: LASIX Take 1 (one) tablet (40 mg total) by mouth daily for 5 days . Quantity: 5 tablet gabapentin 300 MG capsule Commonly known as: NEURONTIN gabapentin GABAPENTIN 300 MG CAPS One tablet by mouth daily GABAPENTIN [id number] Sebastián Dailey MD 06-15-2017 [facility] ([id number]) insulin NPH 100 (more content not included)...[facility]09-27-2024 Note Podiatry Inpatient Progress Note 06/30/2024Skylar Avendano CNP [facility] Patient: Dyllan Huertas Date of : 1960 (63 y.o.) PCP: Jace Reeder, DO ASSESSMENT Ulceration of the second toe with osteomyelitis of the distal phalanx tuft of the left foot status post partial toe amputation per Dr. Mora 06/29 Left second toe plantar fissure 2. Diabetic neuropathy with venous insufficiency both lower legs and feet 3. Diabetes mellitus 4. Scrotal swelling, resolved PLAN: Patient was seen and evaluated Discussed all clinical and radiographic findings CRP 11, ESR 31. WBC normal. Hemoglobin A1c 9.0 Wound culture grew Enterobacter cloacae. Infectious disease following. Repeat culture obtained this admission with no growth MRI left foot: Osteomyelitis involving the 2nd distal phalanx, particularly at the tuft. Overlying skin wound/ulceration. ABIs triphasic throughout with no evidence of small vessel disease at the transmetatarsal level of either foot S/p left second toe partial amputation per Dr. Mora 06/29. Bone culture no growth so far No further inpatient podiatric surgical plans. Patient may be discharged from the hospital Inpatient recommendations: Dressings as follows: Dressing completed per podiatry Mobility/weightbearing: Weightbearing with surgical shoes, heel touch OT/PT: Consulted Case management: Following, patient will need home health services on discharge and possibly IV antibiotics at the discretion of ID Disposition/discharge: May be discharged at any time from podiatry Discharge instructions from AVS: Apply Aquaphor to bilateral legs with each dressing change Buckhall left first metatarsal head scab and second toe incision as well as plantar fissure with Betadine Apply thin strip of single-layer Xeroform over left second toe. Secure with 4 x 4 gauze Apply Kerlix and Zechariah from base of toes to below knees bilaterally Dressing change every 1 to 2 days Nonweightbearing on the left foot, heel touch for safety. Okay to use wheelchair as discussed Keep left foot clean and dry, do not get wet Follow-up in wound clinic with Dr. Mora SUBJECTIVE: Patient was seen in his room, lying in bed. No new pedal complaints. Patient states he will use a wheelchair at home which he has in the past to maintain nonweightbearing on the left. He states he has no trouble with this and navigates this easily to appointments also. Agreeable to receiving support from home health. OBJECTIVE: Podiatric exam: Vascular: DP and PT pulses are palpable 2 of 4. Capillary refill time is less than 3 seconds to distal digits. Skin temperature is warm to warm from proximal tibial tuberosity to distal digit. Previous lower extremity edema has resolved Neurological: Profoundly neuropathic of both feet. Dermatologic: Bilateral lower legs with vascular discoloration but no further scales or plaques. Left second toe partial amputation with intact sutures, no dehiscence, purulence or drainage. Small granular fissure on plantar surface of left second toe. Small scabbed necrotic ulcer to left first metatarsal head. Musculoskeletal: Nonpitting edema both lower legs and feet. Patient no complaints of pain in either calf. Patient had a rigid contracted second mallet toe on the left foot. AUTHENTICATED BY TORIE AVENDANO, ON 06/30/2024 11:15:08[facility] 06-29-2024 NoteHMS PROGRESS NOTE Assessment and Plan Dyllan Huertas is a 63 y.o. male patient of Jace Reeder, DO with history of IDDM2 with neuropathy, toe ulcer, CAD, HTN, HLD, hypothyroidism, JAYDEN, obesity, who presented to [facility] on 06/23/2024 with left toe ulcer. Left 2nd toe ulcer with osteomyelitis, POA Chronic ulcer of the right leg with fat layer exposed, POA left partial 2nd toe amputation 06-29 XR left foot : A broken cannulated screw is noted in the proximal 5th metatarsal, similar to prior. . No acute fracture or dislocation. No bony erosion identified. MRI foot: osteomyelitis of the 2nd distal phalanx with edema along the second toe, cellulitis. Wound aerobic culture on 06/23: grew rare enterobacter cloacae complex Repeat wound aerobic culture on 06/24: negative. ID consulted. Appreciate recs. On Cefepime (Day #3) Podiatry consulted Appreciate recs. Sp bedside sharp excisional debridement by Dr. Robles on 06/24. Daily dressing changes with Xeroform, DSD, and Zechariah per podiatry. 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 ABIs normal post op vital signs stable ; no pain will stop fluids when taking po well Consult for PT Acute on chronic combined systolic and diastolic heart failure Mitral valve regurgitation Tricuspid valve regurgitation TTE 06/23: LVH with LVEF 30%, reduced RV function; grade II diastolic dysfunction, mild aortic and tricuspid valve regurgitation. (Previous TTE 2020 showing LVEF 29%). On room air. CXR negative. -4.5L/24 hours with IV Bumex Transition IV Bumex to oral bumex tomorrow. Daily weights, Strict I/O Cardiology consult. No contraindications to procedure IDDM2 w/ peripheral polyneuropathy: A1c on 06/23: 9 NPH 70/30 home dose held On home Metformin and gabapentin Accuchecks AC/HS with ISS coverage. Glucose remains in the 200s. Start Lantus 10u. Up-titrate as needed. Coronary Artery Disease Essential HTN Dyslipidemia ASA, statin, Coreg, omega-3 fatty acids, fenofibrate, chlorthalidone, lisinopril Hypothyroidism: Levothyroxine JAYDEN: Does not use CPAP BPH: Overflow incontinence: Finasteride and tamsulosin Schulte while diuresing to get accurate outpt Obesity, BMI 39.05: Encourage active lifestyle, diet modification, and weight reduction Scrotal edema:resolved US- Diffuse scrotal edema.Small bilateral hydroceles. Urology consult remove schulte prior to discharge for voiding trials; established with Dr Izquierdo Will remove catheter 06-30 Discharge Planning Medically Stable for Discharge Date: TBD ; possible tomorrow Patient requires continued hospitalization due to: PT eval pending Discharge Location: home Quality Measures DVT Prophylaxis: lovenox Schulte Catheter present; will remove 06-30 Subjective Post procedure in no distress Objective BP (!) 140/70 Pulse 73 Temp 97.4 degrees F (36.3 degrees C) (Infrared) Resp 18 Ht 5' 11 Wt 116.2 kg (256 lb 2.8 oz) SpO2 91% BMI 35.73 kg/m Physical Examination General Appearance: alert; well appearing; in no acute distress HEENT: Head- normocephalic; Eyes- EOMI, sclera anicteric; Throat- mucous membranes moist Cardiovascular: regular rate and rhythm; normal S1, S2; no murmurs, rubs, clicks or gallops; peripheral edema absent Respiratory: lungs clear to auscultation; without wheezes, rales or rhonchi; on room air Abdomen: soft, non-tender, non-distended Neurological: oriented x 3; normal speech; no focal findings or movement disorder noted Musculoskeletal: no significant deformity or tenderness to palpation Skin: normal coloration; dressings to both feet clean Psych: normal mood and affect Schulte in place AUTHENTICATED BY MARIO CASTRO, ON 06/29/2024 13:04:[address] [place] [address] 06-29-2024 NotePatient Name: Dyllan Huertas Admit Date: [id number] MR #: [id number] : 1960 Physicians: Jace Reeder DO (Family); No ref. provider found (Referring) Assessment: Patient with Left second toe ulceration Left second toe osteomyelitis S/p right lower extremity ulcer Diabetes with neuropathy Plan:Continue present management. Continue patient on IV cefepime Follow-up with lab, culture and sensitivity CRP and ESR, Wound culture: Showing Enterobacter cloacae complex MRI left foot: With osteomyelitis involving the second distal phalanx, particular at the tuft. With overlying skin ulceration and edema along the second toe suggesting cellulitis with no abscess. I appreciate podiatry. Surgery today for left second toe amputation Daily wound dressing will be according to podiatry. We will continue to follow Disposition Comment: Likely to DC home on oral antibiotics Follow-up with the clinic in 2 weeks Subjective: Patient was reevaluated today and in stable condition. Has no fever or chills and is saturating well on room air. Patient on ureteral catheter. Exam: PACU Vitals 06/29/24 0831 BP: 130/68 Pulse: 73 Resp: 14 Temp: 97.3 degrees F (36.3 degrees C) SpO2: 100% Allergies: Patient has no known allergies. Medications Reviewed. Current Facility-Administered Medications: [DEC Hold] acetaminophen (TYLENOL) tablet 650 mg, 650 mg, Oral, Q4H PRN, Michele Pompa MD [DEC Hold] aluminum-magnesium hydroxide-simethicone (MAALOX PLUS) 200-200-20 mg/5 mL suspension 30 mL, 30 mL, Oral, Q4H PRN, Michele Pompa MD [DEC Hold] aspirin EC tablet 81 mg, 81 mg, Oral, Daily, Michele Pompa MD, 81 mg at 06/28/24 0914 [DEC Hold] atorvastatin (LIPITOR) tablet 40 mg, 40 mg, Oral, Nightly, Michele Pompa MD, 40 mg at 06/28/242030 [DEC Hold] bisacodyL (DULCOLAX) suppository 10 mg, 10 mg, Rectal, Daily PRN, Michele Pompa MD [DEC Hold] calcium carbonate (TUMS) chewable tablet 1,000 mg, 1,000 mg, Oral, Daily, Michele Pompa MD, 1,000 mg at 06/28/24914 [DEC Hold] carvediloL (COREG) tablet 12.5 mg, 12.5 mg, Oral, BID, Michele Pompa MD, 12.5 mg at 06/28/242030 [DEC Hold] cefePIMe-dextrose (MAXIPIME) 2 gram/50 mL IVPB 2,000 mg, 2,000 mg, Intravenous, Q12H, Michele Pompa MD, Last Rate: 100 mL/hr at 06/29/24200, 2,000 mg at 06/29/24200 [DEC Hold] chlorthalidone (HYGROTON) tablet 25 mg, 25 mg, Oral, Daily, Michele Pompa MD, 25 mg at 06/28/24913 [DEC Hold] cholecalciferol (vitamin D3) tablet 2,000 Units, 2,000 Units, Oral, Daily, Michele Pompa MD, 2,000 Units at 06/28/24913 [DEC Hold] docusate sodium (COLACE) capsule 100 mg, 100 mg, Oral, Daily, Michele Pompa MD, 100 mg at 06/28/24914 [DEC Hold] enoxaparin (LOVENOX) syringe 40 mg, 40 mg, Subcutaneous, Daily, Michele Pompa MD, 40 mg at 06/28/24914 [DEC Hold] fenofibrate tablet 160 mg, 160 mg, Oral, Daily, Michele Pompa MD, 160 mg at 06/28/24912 fentaNYL (SUBLIMAZE) inj syringe 25 mcg, 25 mcg, Intravenous, Q5 Min PRN, Dyllan Gill MD [DEC Hold] ferrous sulfate tablet 325 mg, 325 mg, Oral, Daily with breakfast, Michele Pompa MD, 325 mg at 06/28/24 09 [DEC Hold] finasteride (PROSCAR) tablet 2.5 mg, 2.5 mg, Oral, Once per day on Wednesday, Michele Pompa MD, 2.5 mg at 06/28/24 190 [DEC Hold] gabapentin (NEURONTIN) capsule 300 mg, 300 mg, Oral, Nightly, Michele Pompa MD, 300 mg at 06/28/242030 [Dec] insulin glargine (LANTUS) injection 10 Units, 10 Units, Subcutaneous, Nightly, Shavon Haq CNP, 10 Units at 06/28/242031 [Dec] insulin lispro (AdmeLOG,HumaLOG) injection 0-15 Units, 0-15 Units, Subcutaneous, at bedtime, 5 Units at 06/25/242106 AND Notify physician, , , Until Discontinued, Helena Sheldon CNP [Dec] insulin lispro (AdmeLOG,HumaLOG) injection 0-30 Units, 0-30 Units, Subcutaneous, TID AC, Shavon Haq CNP, 9 Units at 06/28/24 1732 lactated Ringers infusion, 100 mL/hr, Intravenous, Continuous, Dyllan Gill MD, Last Rate: 100 mL/hr at 06/29/24 0711, Restarted at 06/29/24 0738 lactated Ringers infusion, 100 mL/hr, Intravenous, Continuous, Dyllan Gill MD [Dec] levothyroxine (SYNTHROID, LEVOTHROID) tablet 112 mcg, 112 mcg, Oral, Once per day on Wednesday, Michele Pompa MD, 112 mcg at 06/28/24 0523 Insert Indwelling Urethral Catheter, , , Once AND Maintain and Assess Indwelling Urethral Catheter, , , Q12H AND Remove and Discontinue Indwelling Urethral Catheter - Remove PER NURSING POLICY , , , Once AND [MAR Hold] lidocaine HCL (UROJET/GLYDO) 2 % applicator 1 Application, 1 Application, Intra-urethral, PRN, Helena Sheldon, DE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 [MAR Hold] lisinopriL (PRINIVIL,ZESTRI (more content not included)...[facility]09-25-2024 NoteS PROGRESS NOTE Assessment and Plan Dyllan Huertas is a 63 y.o. male patient of Jace Reeder DO with history of IDDM2 with neuropathy, toe ulcer, CAD, HTN, HLD, hypothyroidism, JAYDEN, obesity, who presented to [facility] on 06/23/2024 with left toe ulcer. Left 2nd toe ulcer with osteomyelitis, POA Chronic ulcer of the right leg with fat layer exposed, POA XR left foot : A broken cannulated screw is noted in the proximal 5th metatarsal, similar to prior. . No acute fracture or dislocation. No bony erosion identified. MRI foot: osteomyelitis of the 2nd distal phalanx with edema along the second toe, cellulitis. Wound aerobic culture on 06/23: grew rare enterobacter cloacae complex Repeat wound aerobic culture on 06/24: negative. ID consulted. Appreciate recs. On Cefepime (Day #3) Podiatry consulted Appreciate recs. Sp bedside sharp excisional debridement by Dr. Robles on 06/24. Daily dressing changes with Xeroform, DSD, and Zechariah per podiatry. Patient will require [facility] IV antibiotics 4-6 weeks versus partial amputation of second toe later this week. ABIs normal Plan is for surgery to left toe 06-29 Acute on chronic combined systolic and diastolic heart failure Mitral valve regurgitation Tricuspid valve regurgitation TTE 06/23: LVH with LVEF 30%, reduced RV function; grade II diastolic dysfunction, mild aortic and tricuspid valve regurgitation. (Previous TTE 2020 showing LVEF 29%). On room air. CXR negative. -4.5L/24 hours with IV Bumex Transition IV Bumex to oral bumex tomorrow. Daily weights, Strict I/O Cardiology consult. No contraindications to procedure IDDM2 w/ peripheral polyneuropathy: A1c on 06/23: 9 NPH 70/30 home dose held On home Metformin and gabapentin Accuchecks AC/HS with ISS coverage. Glucose remains in the 200s. Start Lantus 10u. Up-titrate as needed. Coronary Artery Disease Essential HTN Dyslipidemia ASA, statin, Coreg, omega-3 fatty acids, fenofibrate, chlorthalidone, lisinopril Hypothyroidism: Levothyroxine JAYDEN: Does not use CPAP BPH: Overflow incontinence: Finasteride and tamsulosin Schulte while diuresing to get accurate outpt Obesity, BMI 39.05: Encourage active lifestyle, diet modification, and weight reduction Scrotal edema:resolved US- Diffuse scrotal edema.Small bilateral hydroceles. Urology consult move schulte prior to discharge for voiding trials; established with Dr Izquierdo Discharge Planning Medically Stable for Discharge Date: TBD Patient requires continued hospitalization due to: above Discharge Location: home Quality Measures DVT Prophylaxis: lovenox Schulte Catheter: absent Subjective Pt has no complaints; discussed plan Objective BP (!) 144/79 Pulse 67 Temp 97.8 degrees F (36.6 degrees C) (Oral) Resp 16 Ht 5' 11 Wt 115.6 kg (254 lb 13.6 oz) SpO2 (S) (P) 90% BMI 35.54 kg/m Physical Examination General Appearance: alert; acutely ill appearing; in no acute distress HEENT: Head- normocephalic; Eyes- EOMI, sclera anicteric; Throat- mucous membranes moist Cardiovascular: regular rate and rhythm; normal S1, S2; no murmurs, rubs, clicks or gallops; peripheral edema absent Respiratory: lungs clear to auscultation; without wheezes, rales or rhonchi; on room air Abdomen: soft, non-tender, non-distended Neurological: oriented x 3; normal speech; no focal findings or movement disorder noted Musculoskeletal: no significant deformity or tenderness to palpation Skin: normal coloration; dressings to feet bilaterally Psych: normal mood and affect Schulte in place AUTHENTICATED BY MARIO CASTRO, ON 06/28/2024 12:17:[address] [place] [address] 06-28-2024 NotePodiatry Inpatient Progress Note 06/28/2024 Torie Avendano, [facility] Patient: Dyllan Huertas Date of : 1960 (63 y.o.) PCP: Jace Reeder, DO ASSESSMENT Ulceration of the second toe with osteomyelitis of the distal phalanx tuft of the left foot. 2. Diabetic neuropathy with venous insufficiency both lower legs and feet 3. Diabetes mellitus 4. Scrotal swelling, resolved PLAN: Patient was seen and evaluated Discussed all clinical and radiographic findings CRP 11, ESR 31. WBC normal. Hemoglobin A1c 9.0 Wound culture grew Enterobacter cloacae. Infectious disease following. Repeat culture obtained this admission with no growth MRI left foot: Osteomyelitis involving the 2nd distal phalanx, particularly at the tuft. Overlying skin wound/ulceration. ABIs triphasic throughout with no evidence of small vessel disease at the transmetatarsal level of either foot Plan for left second toe partial amputation per Dr. Mora on 06/29. N.p.o. after midnight Wednesday *Patient states he would like his sister Marian called after the surgery for an update at [phone] Inpatient recommendations: Dressings as follows: Apply Aquaphor to bilateral leg scales. Kerlix and Zechariah to right leg from base of toes to below knee. Buckhall left second toe with Betadine, cover with 2 x 2 gauze. Secure with Kerlix and Zechariah Mobility/weightbearing: Weightbearing with surgical shoes, heel touch OT/PT: Consulted Case management: Following, patient will need home health services on discharge and possibly IV antibiotics at the discretion of ID Disposition/discharge: Likely home with home health after surgical cultures are back following surgery Discharge instructions from AVS: To be determined SUBJECTIVE: Patient was seen in his room, sitting up in bed. No new pedal complaints. Lower extremity scales, skin thickening and scabs have resolved on both legs. OBJECTIVE: Podiatric exam: Vascular: DP and PT pulses are palpable 2 of 4. Capillary refill time is less than 3 seconds to distal digits. Skin temperature is warm to warm from proximal tibial tuberosity to distal digit. No pedal edema Neurological: Profoundly neuropathic of both feet. Dermatologic: There is a full-thickness ulcer that is 1 cm x 1 cm x 3 mm on the tip of the second toe left foot with surrounding erythema warmth and edema. There there were also ulcers similar size the dorsal medial aspect the first metatarsal head which did not have any gross signs of infection. Patient has hemosiderin deposit both lower legs and feet with dry scales and skin thickening and scarring especially along the left leg and left posterior leg. Patient had no other wounds on the legs. Musculoskeletal: Nonpitting edema both lower legs and feet. Patient no complaints of pain in either calf. Patient had a rigid contracted second mallet toe on the left foot. AUTHENTICATED BY TORIE AVENDANO ON 06/28/2024 12:35:[address] [place] [address] 06-28-2024 NotePatient Name: Dyllan Huertas Admit Date: 9191107 MR #: [id number] : 1960 Physicians: Jace Reeder DO (Family); No ref. provider found (Referring) Assessment: Patient with Left second toe ulceration Left second toe osteomyelitis S/p right lower extremity ulcer Diabetes with neuropathy Plan:Continue present management. Continue patient on IV cefepime Follow-up with lab, culture and sensitivity CRP and ESR, Wound culture: Showing Enterobacter cloacae complex MRI left foot: With osteomyelitis involving the second distal phalanx, particular at the tuft. With overlying skin ulceration and edema along the second toe suggesting cellulitis with no abscess. I appreciate podiatry. May be scheduling for left second toe amputation Daily wound dressing will be according to podiatry. We will continue to follow Disposition Comment: TBD Subjective: Patient seen in his room and in stable condition. Has no new complaint today. Awaiting surgery. Has no fever or chills and is saturating well on room air. Patient on ureteral catheter. Exam: PACU Vitals 06/28/24 0802 BP: (!) 144/79 Pulse: 67 Resp: 16 Temp: 97.8 degrees F (36.6 degrees C) SpO2: 93% Allergies: Patient has no known allergies. Medications Reviewed. Current Facility-Administered Medications: acetaminophen (TYLENOL) tablet 650 mg, 650 mg, Oral, Q4H PRN, Michele Pompa MD aluminum-magnesium hydroxide-simethicone (MAALOX PLUS) 200-200-20 mg/5 mL suspension 30 mL, 30 mL, Oral, Q4H PRN, Michele Pompa MD aspirin EC tablet 81 mg, 81 mg, Oral, Daily, Michele Pompa MD, 81 mg at 06/27/24 0931 atorvastatin (LIPITOR) tablet 40 mg, 40 mg, Oral, Nightly, Michele Pompa MD, 40 mg at 06/27/242049 bisacodyL (DULCOLAX) suppository 10 mg, 10 mg, Rectal, Daily PRN, Michele Pompa MD calcium carbonate (TUMS) chewable tablet 1,000 mg, 1,000 mg, Oral, Daily, Michele Pompa MD, 1,000 mg at 06/27/24926 carvediloL (COREG) tablet 12.5 mg, 12.5 mg, Oral, BID, Michele Pompa MD, 12.5 mg at 06/27/242049 cefePIMe-dextrose (MAXIPIME) 2 gram/50 mL IVPB 2,000 mg, 2,000 mg, Intravenous, Q12H, Michele Pompa MD, Stopped at 06/28/24219 chlorthalidone (HYGROTON) tablet 25 mg, 25 mg, Oral, Daily, Michele Pompa MD, 25 mg at 06/27/2432 cholecalciferol (vitamin D3) tablet 2,000 Units, 2,000 Units, Oral, Daily, Michele Pompa MD, 2,000 Units at 06/27/24930 docusate sodium (COLACE) capsule 100 mg, 100 mg, Oral, Daily, Michele Pompa MD, 100 mg at 06/27/2430 enoxaparin (LOVENOX) syringe 40 mg, 40 mg, Subcutaneous, Daily, Michele Pompa MD, 40 mg at 06/27/24925 fenofibrate tablet 160 mg, 160 mg, Oral, Daily, Michele Pompa MD, 160 mg at 06/27/2432 ferrous sulfate tablet 325 mg, 325 mg, Oral, Daily with breakfast, Michele Pompa MD, 325 mg at 06/27/2431 finasteride (PROSCAR) tablet 2.5 mg, 2.5 mg, Oral, Once per day on Wednesday, Michele Pompa MD, 2.5 mg at 06/26/24 180 gabapentin (NEURONTIN) capsule 300 mg, 300 mg, Oral, Nightly, Michele Pompa MD, 300 mg at 06/27/242050 insulin glargine (LANTUS) injection 10 Units, 10 Units, Subcutaneous, Nightly, Shavon Haq CNP, 10 Units at 06/27/242050 insulin lispro (AdmeLOG,HumaLOG) injection 0-15 Units, 0-15 Units, Subcutaneous, at bedtime, 5 Units at 06/25/242106 AND Notify physician, , , Until Discontinued, Helena Sheldon CNP insulin lispro (AdmeLOG,HumaLOG) injection 0-30 Units, 0-30 Units, Subcutaneous, TID AC, Shavon Haq CNP, 12 Units at 06/27/241701 levothyroxine (SYNTHROID, LEVOTHROID) tablet 112 mcg, 112 mcg, Oral, Once per day on Wednesday, Michele Pompa MD, 112 mcg at 06/28/24 0523 Insert Indwelling Urethral Catheter, , , Once AND Maintain and Assess Indwelling Urethral Catheter, , , Q12H AND Remove and Discontinue Indwelling Urethral Catheter - Remove PER NURSING POLICY , , , Once AND lidocaine HCL (UROJET/GLYDO) 2 % applicator 1 Application, 1 Application, Intra-urethral, PRN, Helena Sheldon CNP lisinopriL (PRINIVIL,ZESTRIL) tablet 20 mg, 20 mg, Oral, BID, Michele Pompa MD, 20 mg at 06/27/242049 magnesium hydroxide (MOM) 400 mg/5 mL suspension 2,400 mg, 30 mL, Oral, Daily PRN, Michele Pompa MD magnesium oxide (MAG-OX) tablet 400 mg, 400 mg, Oral, Daily, Michele Pompa MD, 400 mg at 06/27/24 0931 melatonin Tab 5 mg, 5 mg, Oral, Nightly PRN, Michele Pompa MD metFORMIN (GLUCOPHAGE-XR) 24 hr tablet 1,000 mg, 1,000 mg, Oral, BID with meals, Michele Pompa MD, 1,000 mg at 06/27/24 1701 multivitamin (THERAGRAN) per tablet 1 tablet, 1 tablet, Oral, Daily, Michele Pompa MD, 1 tablet at 06/27/24 0932 nitr (more content not included)...[facility]09-24-2024 NotePodiatry Inpatient Progress Note 06/27/2024 Torie Avendano, JUDD [facility] Patient: Dyllan Huertas Date of : 1960 (63 y.o.) PCP: Jace Reeder, ASSESSMENT Ulceration of the second toe with osteomyelitis of the distal phalanx tuft of the left foot. 2. Diabetic neuropathy with venous insufficiency both lower legs and feet 3. Diabetes mellitus 4. Scrotal swelling, resolved PLAN: Patient was seen and evaluated Discussed all clinical and radiographic findings CRP 11, ESR 31. WBC normal. Hemoglobin A1c 9.0 Wound culture grew Enterobacter cloacae. Infectious disease following. Repeat culture obtained this admission with no growth MRI left foot: Osteomyelitis involving the 2nd distal phalanx, particularly at the tuft. Overlying skin wound/ulceration. ABIs triphasic throughout with no evidence of small vessel disease at the transmetatarsal level of either foot Plan for left second toe partial amputation per Dr. Mora on 06/29. N.p.o. after midnight Wednesday *Patient states he would like his Sister Marian called after the surgery for an update at [phone] Inpatient recommendations: Dressings as follows: Apply Aquaphor to bilateral leg scales. Kerlix and Zechariah to right leg from base of toes to below knee. Buckhall left second toe with Betadine, cover with 2 x 2 gauze. Secure with Kerlix and Zechariah Mobility/weightbearing: Weightbearing with surgical shoes, heel touch OT/PT: Consulted Case management: Following, patient will need home health services on discharge and possibly IV antibiotics at the discretion of ID Disposition/discharge: Likely home with home health after surgical cultures are back following surgery Discharge instructions from AVS: To be determined SUBJECTIVE: Patient was seen in his room, sitting up in bed. No new pedal complaints. OBJECTIVE: Podiatric exam: Vascular: DP and PT pulses are palpable 2 of 4. Capillary refill time is less than 3 seconds to distal digits. Skin temperature is warm to warm from proximal tibial tuberosity to distal digit. No pedal edema Neurological: Profoundly neuropathic of both feet. Dermatologic: There is a full-thickness ulcer that is 1 cm x 1 cm x 3 mm on the tip of the second toe left foot with surrounding erythema warmth and edema. There there were also ulcers similar size the dorsal medial aspect the first metatarsal head which did not have any gross signs of infection. Patient has hemosiderin deposit both lower legs and feet with dry scales and skin thickening and scarring especially along the left leg and left posterior leg. Patient had no other wounds on the legs. Musculoskeletal: Nonpitting edema both lower legs and feet. Patient no complaints of pain in either calf. Patient had a rigid contracted second mallet toe on the left foot. AUTHENTICATED BY TORIE AVENDANO ON 06/27/2024 16:25:[address] [place] [address] 06-27-2024 NotePatient Name: Dyllan Huertas Admit Date: 9191107 MR #: [id number] : 1960 Physicians: Jace Reeder DO (Family); No ref. provider found (Referring) Assessment: Patient with Left second toe ulceration Left second toe osteomyelitis S/p right lower extremity ulcer Diabetes with neuropathy Plan:Continue present management. Continue patient on IV cefepime Follow-up with lab, culture and sensitivity CRP and ESR, Wound culture: Showing Enterobacter cloacae complex MRI left foot: With osteomyelitis involving the second distal phalanx, particular at the tuft. With overlying skin ulceration and edema along the second toe suggesting cellulitis with no abscess. I appreciate podiatry. May be scheduling for left second toe amputation Daily wound dressing will be according to podiatry. We will continue to follow Disposition Comment: TBD Subjective: Patient seen today lying quietly on the bed and in no obvious distress. Awaiting surgery. Has no fever or chills and is saturating well on room air. Patient on ureteral catheter. Exam: PACU Vitals 06/27/24 0819 BP: (!) 150/81 Pulse: 69 Resp: 16 Temp: 97.9 degrees F (36.6 degrees C) SpO2: 94% Allergies: Patient has no known allergies. Medications Reviewed. Current Facility-Administered Medications: acetaminophen (TYLENOL) tablet 650 mg, 650 mg, Oral, Q4H PRN, Michele Pompa MD aluminum-magnesium hydroxide-simethicone (MAALOX PLUS) 200-200-20 mg/5 mL suspension 30 mL, 30 mL, Oral, Q4H PRN, Michele Pompa MD aspirin EC tablet 81 mg, 81 mg, Oral, Daily, Michele Pompa MD, 81 mg at 06/27/24 0931 atorvastatin (LIPITOR) tablet 40 mg, 40 mg, Oral, Nightly, Michele Pompa MD, 40 mg at 06/26/242140 bisacodyL (DULCOLAX) suppository 10 mg, 10 mg, Rectal, Daily PRN, Michele Pompa MD calcium carbonate (TUMS) chewable tablet 1,000 mg, 1,000 mg, Oral, Daily, Michele Pompa MD, 1,000 mg at 06/27/24 0927 carvediloL (COREG) tablet 12.5 mg, 12.5 mg, Oral, BID, Michele Pompa MD, 12.5 mg at 06/27/24 0932 cefePIMe-dextrose (MAXIPIME) 2 gram/50 mL IVPB 2,000 mg, 2,000 mg, Intravenous, Q12H, Michele Pompa MD, Last Rate: 100 mL/hr at 06/27/24 1312, 2,000 mg at 06/27/24 1312 chlorthalidone (HYGROTON) tablet 25 mg, 25 mg, Oral, Daily, Michele Pompa MD, 25 mg at 06/27/24 0932 cholecalciferol (vitamin D3) tablet 2,000 Units, 2,000 Units, Oral, Daily, Michele Pompa MD, 2,000 Units at 06/27/24 0931 docusate sodium (COLACE) capsule 100 mg, 100 mg, Oral, Daily, Michele Pompa MD, 100 mg at 06/27/24929 enoxaparin (LOVENOX) syringe 40 mg, 40 mg, Subcutaneous, Daily, Michele Pompa MD, 40 mg at 06/27/24925 fenofibrate tablet 160 mg, 160 mg, Oral, Daily, Michele Pompa MD, 160 mg at 06/27/24 0932 ferrous sulfate tablet 325 mg, 325 mg, Oral, Daily with breakfast, Michele Pompa MD, 325 mg at 06/27/24 0931 finasteride (PROSCAR) tablet 2.5 mg, 2.5 mg, Oral, Once per day on Wednesday, Michele Pompa MD, 2.5 mg at 06/26/24 180 gabapentin (NEURONTIN) capsule 300 mg, 300 mg, Oral, Nightly, Michele Pompa MD, 300 mg at 06/26/242140 insulin glargine (LANTUS) injection 10 Units, 10 Units, Subcutaneous, Nightly, Shavon Haq CNP, 10 Units at 06/26/242141 insulin lispro (AdmeLOG,HumaLOG) injection 0-15 Units, 0-15 Units, Subcutaneous, at bedtime, 5 Units at 06/25/242106 AND Notify physician, , , Until Discontinued, Helena Sheldon CNP insulin lispro (AdmeLOG,HumaLOG) injection 0-30 Units, 0-30 Units, Subcutaneous, TID AC, Shavon Haq CNP, 15 Units at 06/27/24 1310 levothyroxine (SYNTHROID, LEVOTHROID) tablet 112 mcg, 112 mcg, Oral, Once per day on Wednesday, Michele Pompa MD, 112 mcg at 06/27/24 0504 Insert Indwelling Urethral Catheter, , , Once AND Maintain and Assess Indwelling Urethral Catheter, , , Q12H AND Remove and Discontinue Indwelling Urethral Catheter - Remove PER NURSING POLICY , , , Once AND lidocaine HCL (UROJET/GLYDO) 2 % applicator 1 Application, 1 Application, Intra-urethral, PRN, Helena Sheldon, JUDD lisinopriL (PRINIVIL,ZESTRIL) tablet 20 mg, 20 mg, Oral, BID, Michele Pompa MD, 20 mg at 06/27/24 0931 magnesium hydroxide (MOM) 400 mg/5 mL suspension 2,400 mg, 30 mL, Oral, Daily PRN, Michele Pompa MD magnesium oxide (MAG-OX) tablet 400 mg, 400 mg, Oral, Daily, Michele Pompa MD, 400 mg at 06/27/24 0931 melatonin Tab 5 mg, 5 mg, Oral, Nightly PRN, Michele Pompa MD metFORMIN (GLUCOPHAGE-XR) 24 hr tablet 1,000 mg, 1,000 mg, Oral, BID with meals, Michele Pompa MD, 1,000 mg at 06/27/24 0930 multivitamin (THERAGRAN) per tablet 1 tablet, 1 tablet, Oral, Daily, Michele Pompa, (more content not included)...[facility]09-24-2024 [place] [facility] [place] Assessment and Plan Dyllan Huertas is a 63 y.o. male patient of Jace Reeder DO with history of IDDM2 with neuropathy, toe ulcer, CAD, HTN, HLD, hypothyroidism, JAYDEN, obesity, who presented to [facility] on 06/23/2024 with left toe ulcer. Left 2nd toe ulcer with osteomyelitis, POA Chronic ulcer of the right leg with fat layer exposed, POA XR left foot : A broken cannulated screw is noted in the proximal 5th metatarsal, similar to prior. . No acute fracture or dislocation. No bony erosion identified. MRI foot: osteomyelitis of the 2nd distal phalanx with edema along the second toe, cellulitis. Wound aerobic culture on 06/23: grew rare enterobacter cloacae complex Repeat wound aerobic culture on 06/24: negative. ID consulted. Appreciate recs. On Cefepime (Day #3) Podiatry consulted Appreciate recs. Sp bedside sharp excisional debridement by Dr. Robles on 06/24. Daily dressing changes with Xeroform, DSD, and Zechariah per podiatry. 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 ABIs still pending. Acute on chronic combined systolic and diastolic heart failure Mitral valve regurgitation Tricuspid valve regurgitation TTE 06/23: LVH with LVEF 30%, reduced RV function; grade II diastolic dysfunction, mild aortic and tricuspid valve regurgitation. (Previous TTE 2020 showing LVEF 29%). On room air. CXR negative. -4.5L/24 hours with IV Bumex Transition IV Bumex to oral bumex tomorrow. Daily weights, Strict I/O Cardiology consult. No contraindications to procedure IDDM2 w/ peripheral polyneuropathy: A1c on 06/23: 9 NPH 70/30 home dose held On home Metformin and gabapentin Accuchecks AC/HS with ISS coverage. Glucose remains in the 200s. Start Lantus 10u. Up-titrate as needed. Coronary Artery Disease Essential HTN Dyslipidemia ASA, statin, Coreg, omega-3 fatty acids, fenofibrate, chlorthalidone, lisinopril Hypothyroidism: Levothyroxine JAYDEN: Does not use CPAP BPH: Overflow incontinence: Finasteride and tamsulosin Schulte while diuresing to get accurate outpt Obesity, BMI 39.05: Encourage active lifestyle, diet modification, and weight reduction Scrotal edema:resolved US- Diffuse scrotal edema.Small bilateral hydroceles. Urology consult move schulte prior to discharge for voiding trials; established with Dr Izquierdo Discharge Planning Medically Stable for Discharge Date: TBD Patient requires continued hospitalization due to: surgery later this week Discharge Location: home Quality Measures DVT Prophylaxis: lovenox Schulte Catheter; present Subjective No complaints; discussed plan of care with ID Objective BP (!) 150/81 Pulse 69 Temp 97.9 degrees F (36.6 degrees C) (Oral) Resp 16 Ht 5' 11 Wt 116.3 kg (256 lb 6.3 oz) SpO2 94% BMI 35.76 kg/m Physical Examination General Appearance: alert; acutely ill appearing; in no acute distress HEENT: Head- normocephalic; Eyes- EOMI, sclera anicteric; Throat- mucous membranes moist Cardiovascular: regular rate and rhythm; normal S1, S2; no murmurs, rubs, clicks or gallops; peripheral edema absent Respiratory: lungs clear to auscultation; without wheezes, rales or rhonchi; on room air Abdomen: soft, non-tender, non-distended Neurological: oriented x 3; normal speech; no focal findings or movement disorder noted Musculoskeletal: no significant deformity or tenderness to palpation Skin: normal coloration; dressings to feet bilaterally Psych: normal mood and affect Schulte in place Scrota edema resolved per pt AUTHENTICATED BY MARIO CASTRO, ON 06/27/2024 13:30:05[facility] 06-26-2024 NoteHMS PROGRESS NOTE-- [facility] Patient Name: Dyllan Huertas : 1960 MR #: [id number] Admit Date: 06/23/2024 Physicians: Jace Reeder DO (Family); No ref. provider found (Referring) Dyllan Huertas is a 63 y.o. male patient of Jace Reeder DO with history of IDDM2 with neuropathy, toe ulcer, CAD, HTN, HLD, hypothyroidism, JAYDEN, obesity, who presented to [facility] on 06/23/2024 with left toe ulcer. Left 2nd toe ulcer with osteomyelitis, POA Chronic ulcer of the right leg with fat layer exposed, POA XR left foot : A broken cannulated screw is noted in the proximal 5th metatarsal, similar to prior. . No acute fracture or dislocation. No bony erosion identified. MRI foot: osteomyelitis of the 2nd distal phalanx with edema along the second toe, cellulitis. Wound aerobic culture on 06/23: grew rare enterobacter cloacae complex Repeat wound aerobic culture on 06/24: negative. ID consulted. Appreciate recs. On Cefepime (Day #3) Podiatry consulted Appreciate recs. Sp bedside sharp excisional debridement by Dr. Robles on 06/24. Daily dressing changes with Xeroform, DSD, and Zechariah per podiatry. 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 ABIs pending. Acute on chronic combined systolic and diastolic heart failure Mitral valve regurgitation Tricuspid valve regurgitation TTE 06/23: LVH with LVEF 30%, reduced RV function; grade II diastolic dysfunction, mild aortic and tricuspid valve regurgitation. (Previous TTE 2020 showing LVEF 29%). On room air. CXR negative. -4.5L/24 hours with IV Bumex Transition IV Bumex to oral bumex tomorrow. Daily weights, Strict I/O Cardiology consult. IDDM2 w/ peripheral polyneuropathy: A1c on 06/23: 9 NPH 70/30 home dose held On home Metformin and gabapentin Accuchecks AC/HS with ISS coverage. Glucose remains in the 200s. Start Lantus 10u. Up-titrate as needed. Coronary Artery Disease Essential HTN Dyslipidemia ASA, statin, Coreg, omega-3 fatty acids, fenofibrate, chlorthalidone, lisinopril Hypothyroidism: Levothyroxine JAYDEN: Does not use CPAP BPH: Overflow incontinence: Finasteride and tamsulosin Schulte while diuresing to get accurate outpt Obesity, BMI 39.05: Encourage active lifestyle, diet modification, and weight reduction Scrotal edema: US- Diffuse scrotal edema.Small bilateral hydroceles. Urology consult Residence prior to admission: house or apartment Was patient transferred from outlying hospital or ED no Quality Measures DVT Prophylaxis: lovenox Schulte Catheter: absent Medication Reconciliation: Verified Admitted with these risk variables:None. Please see assessment and plan for further details. Estimated Date of Discharge greater than 2 midnights Code Status Full Code; code status verified on 06/23/2024 with patient (capacity intact) Subjective: denies pain in foot. No complaints, swelling in scrotum is decreasing Review Of Systems All relevant systems have been reviewed and are negative except as noted in HPI or below Physical Examination BP (!) 148/77 Pulse 67 Temp 97.7 degrees F (36.5 degrees C) (Oral) Resp 17 Ht 5' 11 Wt 119.6 kg (263 lb 10.7 oz) SpO2 93% BMI 36.77 kg/m General Appearance: alert; chronically ill appearing; in no acute distress HEENT: Head- normocephalic; Eyes- EOMI, sclera anicteric; Throat- mucous membranes moist Cardiovascular: regular rate and rhythm; normal S1, S2; no murmurs, rubs, clicks or gallops; peripheral edema present Respiratory: lungs clear to auscultation; without wheezes, rales or rhonchi; on room air Abdomen: soft, non-tender, non-distended : Grossly edematous scrotum, which is largely non-tender. Unable to palpate testes due to the significant edema. Mild erythema of the scrotum without warmth. Neurological: oriented x 3; normal speech; no focal findings or movement disorder noted; diminished sensation to touch of the feet Musculoskeletal: no significant deformity or tenderness to palpation Skin: left toe ulcer Psych: normal mood and affect AUTHENTICATED BY SHAVON HAQ, ON 06/26/2024 10:54:13[facility] 06-26-2024 NotePodiatry Inpatient Progress Note 06/26/2024 Torie Avendano, JUDD [facility] Patient: Dyllan Huertas Date of : 1960 (63 y.o.) PCP: Jace Reeder, DO ASSESSMENT Ulceration of the second toe with osteomyelitis of the distal phalanx tuft of the left foot. 2. Diabetic neuropathy with venous insufficiency both lower legs and feet 3. Diabetes mellitus 4. Scrotal swelling PLAN: Patient was seen and evaluated Discussed all clinical and radiographic findings CRP 11, ESR 31. WBC normal. Hemoglobin A1c 9.0 Wound culture grew Enterobacter cloacae. Infectious disease following MRI left foot: Osteomyelitis involving the 2nd distal phalanx, particularly at the tuft. Overlying skin wound/ulceration. ABIs triphasic throughout with no evidence of small vessel disease at the transmetatarsal level of either foot Plan for left second toe amputation per Dr. Mora on 06/29. N.p.o. after midnight Wednesday Inpatient recommendations: Dressings as follows: Apply Aquaphor to bilateral leg scales. Kerlix and Zechariah to right leg from base of toes to below knee. Buckhall left second toe with Betadine, cover with 2 x 2 gauze. Secure with Kerlix and Zechariah Mobility/weightbearing: Weightbearing with surgical shoes, heel touch OT/PT: Consulted Case management: Following, patient will need home health services on discharge and possibly IV antibiotics at the discretion of ID Disposition/discharge: To be determined Discharge instructions from AVS: To be determined SUBJECTIVE: Patient was seen in his room, sitting up in bed. No new pedal complaints. Patient states his scrotal swelling has improved significantly, he no longer has the pain and fullness as he did upon admission OBJECTIVE: Podiatric exam: Vascular: DP and PT pulses are palpable 2 of 4. Capillary refill time is less than 3 seconds to distal digits. Skin temperature is warm to warm from proximal tibial tuberosity to distal digit. No pedal edema Neurological: Profoundly neuropathic of both feet. Dermatologic: There is a full-thickness ulcer that is 1 cm x 1 cm x 3 mm on the tip of the second toe left foot with surrounding erythema warmth and edema. There there were also ulcers similar size the dorsal medial aspect the first metatarsal head which did not have any gross signs of infection. Patient has hemosiderin deposit both lower legs and feet with dry scales and skin thickening and scarring especially along the left leg and left posterior leg. Patient had no other wounds on the legs. Musculoskeletal: Nonpitting edema both lower legs and feet. Patient no complaints of pain in either calf. Patient had a rigid contracted second mallet toe on the left foot. AUTHENTICATED BY TORIE AVENDANO ON 06/26/2024 13:01:[address] [place] [address] 06-25-2024 NotePodiatry Inpatient Progress Note 06/25/2024 Rosa M Robles, [facility] Patient: Dyllan Huertas Date of : 1960 (63 y.o.) PCP: Jace Reeder, DO ASSESSMENT Ulceration of the second toe with osteomyelitis of the distal phalanx tuft of the left foot. Diabetic neuropathy with venous insufficiency both lower legs and feet. PLAN: Patient was seen and evaluated second toe ulceration with osteomyelitis of the left foot. Discussed all clinical and radiographic findings MRI is positive for osteomyelitis of the distal phalanx tuft of the second toe left foot. Patient has 2 options with the osteomyelitis of second toe left foot. Partial second toe amputation of the left foot 4 to 6 weeks of IV antibiotics with wound care. I will have my nurse practitioner discussed with patient his 2 options and have him make a decision. I would recommend a partial second toe amputation of the left foot since the toe has a mallet toe deformity and healing this ulcer will be difficult.. The procedure could be performed by Dr. Mora or myself this week. Inpatient recommendations: Dressings as follows: Xeroform dry sterile dressing to ulcers on the left foot daily. Zechariah bandages on both legs and feet. Mobility/weightbearing: Weightbearing with surgical shoes OT/PT: May evaluate and treat Case management: I anticipate patient is going to either need 4 to 6 weeks of IV antibiotics or a partial second toe amputation of the left foot set up this week. Anticipate discharge middle to the end of the week based on patient's decision regarding his toe. Disposition/discharge: To be determined Discharge instructions from AVS: To be determined SUBJECTIVE: Patient was seen for left foot and second toe ulcerations with cellulitis. Patient was just being taken down for his MRI when I visited with him today. Patient did not know his MRI findings as of this note. Patient denies nausea vomiting fevers or chills. Patient had no diarrhea with the antibiotics. Patient had debridement second toe ulcer on the left foot yesterday. OBJECTIVE: Podiatric Exam on morning of wounds 30 minutes of Vascular: DP and PT pulses are palpable 2 of 4. Capillary refill time is less than 3 seconds to distal digits. Skin temperature is warm to warm from proximal tibial tuberosity to distal digit. No pedal edema Neurological: Profoundly neuropathic of both feet. Dermatologic: There is a full-thickness ulcer that is 1 cm x 1 cm x 3 mm on the tip of the second toe left foot with surrounding erythema warmth and edema. There there were also ulcers similar size the dorsal medial aspect the first metatarsal head which did not have any gross signs of infection. Patient has hemosiderin deposit both lower legs and feet. Patient had no other wounds on the legs. Musculoskeletal: Nonpitting edema both lower legs and feet. Patient no complaints of pain in either calf. Patient had a rigid contracted second mallet toe on the left foot. AUTHENTICATED BY ROSA M ROBLES, ON 06/25/2024 12:44:41[facility]09-22-2024 NoteS PROGRESS NOTE-- [facility] Patient Name: Dyllan Huertas : 1960 MR #: [id number] Admit Date: 06/23/2024 Physicians: Jace Reeder DO (Family); No ref. provider found (Referring) Dyllan Huertas is a 63 y.o. male patient of Jace Reeder DO with history of IDDM2 with neuropathy, toe ulcer, CAD, HTN, HLD, hypothyroidism, JAYDEN, obesity, who presented to [facility] on 06/23/2024 with left toe ulcer. Left 2nd toe ulcer with fat layer exposed, POA: Chronic ulcer of the right leg with fate layer exposed, POA: XR left foot : A broken cannulated screw is noted in the proximal 5th metatarsal, similar to prior. . No acute fracture or dislocation. No bony erosion identified. MRI foot : osteomyelitis of left 2nd toe ESR 31 CRP 11 Vanc stopped after Neg MRSA swab Cefepime Podiatry consult 06/[address] 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 Global systolic dysfunction, septal wall motion consistent with previous open heart procedure LVEF 30 +/- 5%. Normal RV size with reduced RV function. There is grade 2 diastolic dysfunction, consistent with impaired relaxation and elevated left atrial pressure. Aortic valve morphology not well-visualized leaflets appear thickened and calcified. No stenosis based on Doppler data. Mild AI. mild mitral valve regurgitation and mild tricuspid valve regurgitation. CXR no acute issues Pro-BNP 1438 Bumex 1 mg iv bid Daily wts Schulte while diuresing Monitor renal function IDDM2 w/ peripheral polyneuropathy: NPH 70/30 home dose held Humalog SSI only Metformin Gabapentin Diabetic diet Pt states that he does not check his blood sugar at home and does not have a schedule for giving insulin 06/23/24 A1c 9.0 CAD: HTN: HLD: ASA, statin, Coreg, omega-3 fatty acids, fenofibrate, chlorthalidone, lisinopril Hypothyroidism: Levothyroxine JAYDEN: Does not use CPAP BPH: Overflow incontinence: Finasteride and tamsulosin Schulte while diuresing to get accurate outpt Obesity, BMI 39.05: Encourage active lifestyle, diet modification, and weight reduction Scrotal edema: US- Diffuse scrotal edema.Small bilateral hydroceles. Bumex hold newly started PO bumex see above Urology consult Residence prior to admission: house or apartment Was patient transferred from outlying hospital or ED no Quality Measures DVT Prophylaxis: lovenox Schulte Catheter: absent Medication Reconciliation: Verified Admitted with these risk variables:None. Please see assessment and plan for further details. Estimated Date of Discharge greater than 2 midnights Code Status Full Code; code status verified on 06/23/2024 with patient (capacity intact) Subjective: denies pain in foot. No complaints, swelling in scrotum is decreasing Review Of Systems All relevant systems have been reviewed and are negative except as noted in HPI or below Physical Examination BP (!) 153/72 Pulse 75 Temp 97.3 degrees F (36.3 degrees C) (Oral) Resp 17 Ht 5' 11 Wt 123.2 kg (271 lb 9.7 oz) Comment: standing scale. SpO2 94% BMI 37.88 kg/m General Appearance: alert; chronically ill appearing; in no acute distress HEENT: Head- normocephalic; Eyes- EOMI, sclera anicteric; Throat- mucous membranes moist Cardiovascular: regular rate and rhythm; normal S1, S2; no murmurs, rubs, clicks or gallops; peripheral edema present Respiratory: lungs clear to auscultation; without wheezes, rales or rhonchi; on room air Abdomen: soft, non-tender, non-distended : Grossly edematous scrotum, which is largely non-tender. Unable to palpate testes due to the significant edema. Mild erythema of the scrotum without warmth. Neurological: oriented x 3; normal speech; no focal findings or movement disorder noted; diminished sensation to touch of the feet Musculoskeletal: no significant deformity or tenderness to palpation Skin: left toe ulcer Psych: normal mood and affect AUTHENTICATED BY HELENA SHELDON, ON 06/25/2024 12:02:[address] [place] [address] 06-24-2024 NoteS PROGRESS NOTE-- [facility] Patient Name: Dyllan Huertas : 1960 MR #: [id number] Admit Date: 06/23/2024 Physicians: Jace Reeder DO (Family); No ref. provider found (Referring) Dyllan Huertas is a 63 y.o. male patient of Jace Reeder DO with history of IDDM2 with neuropathy, toe ulcer, CAD, HTN, HLD, hypothyroidism, JAYDEN, obesity, who presented to [facility] on 06/23/2024 with left toe ulcer. Left 2nd toe ulcer with fat layer exposed, POA: Chronic ulcer of the right leg with fate layer exposed, POA: XR left foot : A broken cannulated screw is noted in the proximal 5th metatarsal, similar to prior. . No acute fracture or dislocation. No bony erosion identified. MRI foot pending ESR 31 CRP 11 Vanc stopped after Neg MRSA swab Cefepime Podiatry consult 06/[address] Rosa M Robles Wound culture pending CHF Acute on chronic diastolic and systolic with reduced EF 06/23 Echo: .concentric LVH is present. Global systolic dysfunction, septal wall motion consistent with previous open heart procedure LVEF 30 +/- 5%. Normal RV size with reduced RV function. There is grade 2 diastolic dysfunction, consistent with impaired relaxation and elevated left atrial pressure. Aortic valve morphology not well-visualized leaflets appear thickened and calcified. No stenosis based on Doppler data. Mild AI. mild mitral valve regurgitation and mild tricuspid valve regurgitation. CXR no acute issues Pro-BNP 1438 Bumex 1 mg iv bid Daily wts Schulte while diuresing Monitor renal function IDDM2 w/ peripheral polyneuropathy: NPH 70/30 home dose held Humalog SSI only Metformin Gabapentin Diabetic diet Pt states that he does not check his blood sugar at home and does not have a schedule for giving insulin 06/23/24 A1c 9.0 CAD: HTN: HLD: ASA, statin, Coreg, omega-3 fatty acids, fenofibrate, chlorthalidone, lisinopril Hypothyroidism: Levothyroxine JAYDEN: Does not use CPAP BPH: Overflow incontinence: Finasteride and tamsulosin Schulte while diuresing to get accurate outpt Obesity, BMI 39.05: Encourage active lifestyle, diet modification, and weight reduction Scrotal edema: US- Diffuse scrotal edema.Small bilateral hydroceles. Bumex hold newly started PO bumex see above Urology consult Residence prior to admission: house or apartment Was patient transferred from outlying hospital or ED no Quality Measures DVT Prophylaxis: lovenox Schulte Catheter: absent Medication Reconciliation: Verified Admitted with these risk variables:None. Please see assessment and plan for further details. Estimated Date of Discharge greater than 2 midnights Code Status Full Code; code status verified on 06/23/2024 with patient (capacity intact) Subjective: denies pain in foot. No complaints Review Of Systems All relevant systems have been reviewed and are negative except as noted in HPI or below Physical Examination BP (!) 142/80 Pulse 73 Temp 97.9 degrees F (36.6 degrees C) (Oral) Resp 16 Ht 5' 11 Wt 117 kg (257 lb 15 oz) Comment: standing scale. SpO2 92% BMI 35.98 kg/m General Appearance: alert; chronically ill appearing; in no acute distress HEENT: Head- normocephalic; Eyes- EOMI, sclera anicteric; Throat- mucous membranes moist Cardiovascular: regular rate and rhythm; normal S1, S2; no murmurs, rubs, clicks or gallops; peripheral edema present Respiratory: lungs clear to auscultation; without wheezes, rales or rhonchi; on room air Abdomen: soft, non-tender, non-distended : Grossly edematous scrotum, which is largely non-tender. Unable to palpate testes due to the significant edema. Mild erythema of the scrotum without warmth. Neurological: oriented x 3; normal speech; no focal findings or movement disorder noted; diminished sensation to touch of the feet Musculoskeletal: no significant deformity or tenderness to palpation Skin: left toe ulcer Psych: normal mood and affect AUTHENTICATED BY HELENA SHELDON, ON 06/24/2024 15:42:[address] [place] [address] 06-24-2024 NotePreprocedure diagnosis: Infected second toe ulcer left foot. Post procedure diagnosis: Same Procedure: Sharp excisional debridement of second toe ulceration of the left foot less than 20 cm debrided. Procedure indications: Patient is a 63-year-old male whose had an infected second toe ulcer of the left foot for several weeks. Patient was admitted to hospital for possible osteomyelitis. Patient was advised of undergoing a bedside sharp debridement. Patient was explained risks and complications of all the procedure which include infection, bleeding, numbness, delayed healing, swelling, scar, pain and loss of toe. After all questions were answered patient want to move forward with surgery at this time. Consent form was signed preprocedure. Procedure in detail: After obtaining consent attention was directed to the second toe on the left foot where sharp excisional debridement was performed with a #15 blade handle to remove all devitalized tissue full-thickness down to including the subcutaneous tissue. The wound was flushed with saline. I also performed the same procedure on the ulcer of the first metatarsal of the left foot. Less than 20 cm were debrided of both wounds on the left foot. Fresh culture taken from second toe ulceration of left foot. Applied Xeroform dry sterile dressing and Zechariah to be changed daily. AUTHENTICATED BY ROSA M ROBLES, ON 06/24/2024 12:39:34[facility]09-20-2024 Patient's home Progress note* Actions Pt admitted in to [facility]. Reviewed care plan, medications, DM, diet, wound care and safety with ambulation. Patient/caregiver verbalized understanding and agreement. Male patient of Jace Reeder, with history of IDDM2 with neuropathy, toe ulcer, CAD, HTN, HLD, hypothyroidism, JAYDEN, obesity, who presented to [facility] on 06/23-06/30/24 with left toe ulcer. Had left partial 2nd toe amputation 06-29 due to osteomyelitis. Pt also treated for cellulitis of both lower legs. And HF symptoms. Pt started on bumetanide (BUMEX) 0.5 MG tablet to aid in reducing edema in lower legs, feet. And oral antibiotic. Pt discharge home, pt lives alone but his sister and brother in law live one house down the road and assist the pt as needed. ISELA takes pt to his appointments. Pt is NWB to left foot with heel touch for safety, using wheelchair around the home. Educated on importance of elevating legs throughout the day to decrease edema and aid in wound healing. Educated on controlling BS to aid in healing. Pt states he use to check his BS daily but his battery in his glucometer and he needs to replace it. Highly encouraged pt to do that and start monitoring BS daily, pt verbalized understanding. See media tab for pictures of wounds. Orders per podiatry:Apply Aquaphor to bilateral legs with each dressing change, [place] left first metatarsal head scab and second toe incision as well as plantar fissure with Betadine, Apply thin strip of single-layer Xeroform over left second toe. Secure with 4 x 4 gauze, Apply Kerlix and Zechariah from base of toes to below knees bilaterally, Dressing change every 1 to 2 days, Nonweightbearing on the left foot, heel touch for safety., Okay to use wheelchair as discussed, Keep left foot clean and dry, do not get wet, Follow-up in wound clinic with Dr. Mora. documented in this encounter [id number] NoteHMS HISTORY AND PHYSICAL -- [facility] Patient Name: Dyllan Huertas : 1960 MR #: [id number] Admit Date: 06/23/2024 Physicians: Jace Reeder DO (Family); No ref. provider found (Referring) Dyllan Huertas is a 63 y.o. male patient of DaytonisidroJace hopkins DO with history of IDDM2 with neuropathy, toe ulcer, CAD, HTN, HLD, hypothyroidism, JAYDEN, obesity, who presented to [facility] on 06/23/2024 with left toe ulcer. Left 2nd toe ulcer with fat layer exposed, POA: Chronic ulcer of the right leg with fate layer exposed, POA: XR left foot pending MRI foot ESR CRP Vanc/Cefepime Podiatry consult IDDM2 w/ peripheral polyneuropathy: NPH 70/30 Humalog SSI Metformin Gabapentin Diabetic diet CAD: HTN: HLD: ASA, statin, Coreg, omega-3 fatty acids, fenofibrate, chlorthalidone, lisinopril Hypothyroidism: Levothyroxine JAYDEN: Does not use CPAP BPH: Overflow incontinence: Finasteride and tamsulosin Obesity, BMI 39.05: Encourage active lifestyle, diet modification, and weight reduction Dyspnea: CXR Pro-BNP Scrotal edema: US Bumex Urology consult Residence prior to admission: house or apartment Was patient transferred from outlying hospital or ED no Quality Measures DVT Prophylaxis: lovenox Schulte Catheter: absent Medication Reconciliation: Verified Admitted with these risk variables:None. Please see assessment and plan for further details. Estimated Date of Discharge greater than 2 midnights Code Status Full Code; code status verified on 06/23/2024 with patient (capacity intact) Chief Complaint Left toe ulcer History of Present Illness Dyllan Huerats is a 63 y.o. male patient of TrediaJace hopkins DO with history of IDDM2 with neuropathy, toe ulcer, CAD, HTN, HLD, hypothyroidism, JAYDEN, obesity, who presented to [facility] on 06/23/2024 with left toe ulcer. Injured it a couple weeks ago. Went ot the ED. Placed on doxycycline. Then saw Dr. Mora and was placed on Augmentin. Being treated as outpatient. Followed up with podiatry today. Sent for admission by humidifier operator for concern of osteomyelitis. No pain. No fever, chills, N/V. Has been placed on Bumex for scrotal swelling the past week as well. Urinating more, but no improvement in the scrotal swelling. Past Medical History Past Medical History: Diagnosis Date Acquired equinus deformity of right foot Acquired hammer toe of right foot Angina pectoris with documented spasm ([facility]) Calluse Cellulitis of left toe Charcot's joint, right ankle and foot Chronic osteomyelitis with draining sinus, right ankle and foot ([facility]) Complication of external fixation device with internal components ([facility]) Coronary artery disease Dehiscence of incision Diabetes mellitus, type 2 ([facility]) Dystrophic nail Edema Effusion of ankle and foot joint Fracture of metatarsal, closed Fungal toenail infection Hyperlipidemia Hypertension Hypothyroidism 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 ([facility]) Non-pressure chronic ulcer of other part of left foot limited to breakdown of skin ([facility]) Non-pressure chronic ulcer of other part of right foot with fat layer exposed ([facility]) limited to breakdown of skin Obesity Overflow incontinence Peripheral neuropathy Pressure ulcer of right foot, stage 2 ([facility]) S/P foot surgery, right 12/09/2019 11/20/2019Right foot reconstruction surgery with external fixation 12/02/2019 Right foot I and D Sleep apnea, obstructive does not use CPAP Tibia/fibula fracture Past Surgical History Past Surgical History: Procedure Laterality Date APPENDECTOMY ARTHRODESIS SUBTALAR Right 05/01/2020 Procedure: RIGHT ANKLE ARTHRODESIS, SUBTALAR ARTHRODESIS RIGHT ANKLE, Bone [place] Graft From Right Fibula, Application of Splint; Surgeon: Alena Mora DPM; Location: [facility] OR; Service: Podiatry ARTHROPLASTY TOE Right 01/25/2019 Procedure: ARTHROPLASTY 2ND TOE RIGHT FOOT; Surgeon: Rosa M Robles DPM; Location: [facility]; Service: Podiatry CABG 2017 CARDIAC SURGERY 2017 CABG tripe bypass CLOSED REDUCTION PERCUTANEOUS PINNING LOWER EXTREMITY N/A 12/02/2019 Procedure: ADJUSTMENT of EXTERNAL FIXATOR; Surgeon: Alena Mora DPM; Location: [facility]; Service: Podiatry CT COLONOSCOPY 02/24/[address] COLONOSCOPY 03/21/2023 CT COLONOSCOPY CYST REMOVED FROM CHEST N/A INCISION AND DRAINAGE FOOT AND ANKLE Right 12/02/2019 Procedure: RIGHT FOOT I&D; Surgeon: Alena Mora DPM; Location: [facility]; Service: Podiatry LIPOSUCTION METAL IN LEFT LEFT WRIST AND LEFT 5TH TOE Left ORIF FOOT FRACTURE Left 07/03/2013 5th metatarsal ORTHOPEDIC SURGERY RECONSTRUCTION FOOT CHARCOT Right 11/20/2019 Procedure: RIGHT FOOT RECONSTRUCTION WITH APPLICATION OF CIRCULAR STATIC EXTERNAL FIXATION; Surgeon: Alena Mora DPM; Location: [facility]; Service: Podiatry RT FOOT SURGERY Right T (more content not included)...[facility]09-20-2024 NoteEstablished Patient Visit Alena Mora DPM Patient Name: Dyllan Huertas. . Date of : 1960, 63 y.o.. Gender: male. Subjective: Patient is a pleasant 63-year-old male who is seen a few weeks ago at my office for worsening bilateral lower extremity edema. I attempted to get this patient admitted to the hospital however patient was unable to get admitted due to lack of transportation. Patient states that he did see his primary care physician for scrotal swelling, who then placed him on a water pill. States he has been doing dressing changes at home. Reports somewhat improvement to the leg wounds. No other pedal complaints at this time. Denies fevers, chills, nausea, vomiting, chest pain, shortness of breath, or any other constitutional symptoms. Past Medical History: Diagnosis Date Acquired equinus deformity of right foot Acquired hammer toe of right foot Angina pectoris with documented spasm ([facility]) Calluse Cellulitis of left toe Charcot's joint, right ankle and foot Chronic osteomyelitis with draining sinus, right ankle and foot ([facility]) Complication of external fixation device with internal components ([facility]) Coronary artery disease Dehiscence of incision Diabetes mellitus, type 2 ([facility]) Dystrophic nail Edema Effusion of ankle and foot joint Fracture of metatarsal, closed Fungal toenail infection Hyperlipidemia Hypertension Hypothyroidism 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 ([facility]) Non-pressure chronic ulcer of other part of left foot limited to breakdown of skin ([facility]) Non-pressure chronic ulcer of other part of right foot with fat layer exposed ([facility]) limited to breakdown of skin Obesity Overflow incontinence Peripheral neuropathy Pressure ulcer of right foot, stage 2 ([facility]) S/P foot surgery, right 12/09/2019 11/20/2019Right foot reconstruction surgery with external fixation 12/02/2019 Right foot I and D Sleep apnea, obstructive does not use CPAP Tibia/fibula fracture Past Surgical History: Procedure Laterality Date APPENDECTOMY ARTHRODESIS SUBTALAR Right 05/01/2020 Procedure: RIGHT ANKLE ARTHRODESIS, SUBTALAR ARTHRODESIS RIGHT ANKLE, Bone [place] Graft From Right Fibula, Application of Splint; Surgeon: Alena Mora DPM; Location: [facility]; Service: Podiatry ARTHROPLASTY TOE Right 01/25/2019 Procedure: ARTHROPLASTY 2ND TOE RIGHT FOOT; Surgeon: Rosa M Robles DPM; Location: [facility] [place]; Service: Podiatry CABG 2017 CARDIAC SURGERY 2017 CABG tripe bypass CLOSED REDUCTION PERCUTANEOUS PINNING LOWER EXTREMITY N/A 12/02/2019 Procedure: ADJUSTMENT of EXTERNAL FIXATOR; Surgeon: Alena Mora DPM; Location: [facility] OR; Service: Podiatry CT COLONOSCOPY 02/24/[address] COLONOSCOPY 03/21/2023 CT COLONOSCOPY CYST REMOVED FROM CHEST N/A INCISION AND DRAINAGE FOOT AND ANKLE Right 12/02/2019 Procedure: RIGHT FOOT I&D; Surgeon: Alena Mora DPM; Location: [facility]; Service: Podiatry LIPOSUCTION METAL IN LEFT LEFT WRIST AND LEFT 5TH TOE Left ORIF FOOT FRACTURE Left 07/03/2013 5th metatarsal ORTHOPEDIC SURGERY RECONSTRUCTION FOOT CHARCOT Right 11/20/2019 Procedure: RIGHT FOOT RECONSTRUCTION WITH APPLICATION OF CIRCULAR STATIC EXTERNAL FIXATION; Surgeon: Alena Mora DPM; Location: [facility]; Service: Podiatry RT FOOT SURGERY Right TUMMY TUCK N/A Physical Examination: BP (P) 136/77 Pulse (P) 76 Temp (P) 98.2 degrees F (36.8 degrees C) (Infrared) Resp (P) 16 SpO2 (P) 91% General Appearance: Alert, cooperative, no distress, appears stated age. Podiatric Exam Vascular: DP and PT pulses are weakly palpable. Capillary refill time is less than 3 seconds to distal digits with exception of delayed cap refill to the left second toe. Skin temperature is warm to cool from proximal tibial tuberosity to distal digit. Neurological: Gross sensation is intact. Protective sensation is absent using the [place] [employer] monofilament. Dermatologic: See images below Musculoskeletal: Ankle joint range of motion is intact. Muscle strength is 5/5 to dorsiflexors, plantar flexors, inverters and everters. Compartments soft and compressible. No calf pain Diagnoses: 1. Chronic ulcer of right leg with fat layer exposed ([facility]) Ambulatory referral to Wound Clinic Media: 06/23/2024 Assessment/Plan: Patient was seen and evaluated. Discussed all clinical findings Patient's bilateral lower extremity wounds have improved since the last clinic visit however the posterior right leg wound is open with serous drainage noted. Most concerning are patient's open wound to the left second toe. This wound does not probe down to bone however the toe is erythematous, edematous and concerning for underlying osteomyelitis. An x-ray of the left foot was ordered and interpreted today by me showing early erosive changes to the distal tuft of the distal phalanx of the left se (more content not included)...[facility]09-20-2024 History of Present illness Narrative* Alena Mora DPM - 06/23/2024 10:04 AM EDT Images from the original note were not included. Established Patient Visit Alena Mora DPM Patient Name: Dyllan Huertas. . Date of : 1960, 63 y.o.. Gender: male. Subjective: Patient is a pleasant 63-year-old male who is seen a few weeks ago at my office for worsening bilateral lower extremity edema. I attempted to get this patient admitted to the hospital however patientwas unable to get admitted due to lack of transportation. Patient states that he did see his primary care physician for scrotal swelling, who then placed him on a water pill. States he has been doing dressing changes at home. Reports somewhat improvement to the leg wounds. No other pedal complaintsat this time. Denies fevers, chills, nausea, vomiting, chest pain, shortness of breath, or any other constitutional symptoms. Past Medical History: Diagnosis Date Acquired equinus deformity of right foot Acquired hammer toe of right foot Angina pectoris with documented spasm ([facility]) Calluse Cellulitis of left toe Charcot's joint, right ankle and foot Chronic osteomyelitis with draining sinus, right ankle and foot ([facility]) Complication of external fixation device with internal components ([facility]) Coronary artery disease Dehiscence of incision Diabetes mellitus, type 2 (HCC) Dystrophic nail Edema Effusion of ankle and foot joint Fracture of metatarsal, closed Fungal toenail infection Hyperlipidemia Hypertension Hypothyroidism 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 ([facility]) Non-pressure chronic ulcer of other part of left foot limited to breakdown of skin ([facility]) Non-pressure chronic ulcer of other part of right foot with fat layer exposed ([facility]) limited to breakdown of skin Obesity Overflow incontinence Peripheral neuropathy Pressure ulcer of right foot, stage 2 ([facility]) S/P foot surgery, right 12/09/2019 11/20/2019Right foot reconstruction surgery with external fixation 12/02/2019 Right foot I and D Sleep apnea, obstructive does not use CPAP Tibia/fibula fracture Past Surgical History: Procedure Laterality Date APPENDECTOMY ARTHRODESIS SUBTALAR Right 05/01/2020 Procedure: RIGHT ANKLE ARTHRODESIS, SUBTALAR ARTHRODESIS RIGHT ANKLE, Bone [place] Graft From RightFibula, Application of Splint; Surgeon: Alena Mora DPM; Location: [facility] OR; Service: Podiatry ARTHROPLASTY TOE Right 01/25/2019 Procedure: ARTHROPLASTY 2ND TOE RIGHT FOOT; Surgeon: Rosa M Robles DPM; [facility] [facility]; Service: Podiatry CABG 2017 CARDIAC SURGERY 2017 CABG tripe bypass CLOSED REDUCTION PERCUTANEOUS PINNING LOWER EXTREMITY N/A 12/02/2019 Procedure: ADJUSTMENT of EXTERNAL FIXATOR; Surgeon: Alena Mora DPM; Location: [facility]; Service: Podiatry CT COLONOSCOPY 02/24/[address] COLONOSCOPY 03/21/2023 CT COLONOSCOPY CYST REMOVED FROM CHEST N/A INCISION AND DRAINAGE FOOT AND ANKLE Right 12/02/2019 Procedure: RIGHT FOOT I&D; Surgeon: Alena Mora DPM; Location: [facility]; Service: Podiatry LIPOSUCTION METAL IN LEFT LEFT WRIST AND LEFT 5TH TOE Left ORIF FOOT FRACTURE Left 07/03/2013 5th metatarsal ORTHOPEDIC SURGERY RECONSTRUCTION FOOT CHARCOT Right 11/20/2019 Procedure: RIGHT FOOT RECONSTRUCTION WITH APPLICATION OF CIRCULAR STATIC EXTERNAL FIXATION; Surgeon: Alena Mora DPM; Location: [facility]; Service: Podiatry RT FOOT SURGERY Right TUMMY TUCK N/A Physical Examination: BP (P) 136/77 Pulse (P) 76 Temp (P) 98.2 F (36.8 C) (Infrared) Resp (P) 16 SpO2 (P) 91% General Appearance: Alert, cooperative, no distress, appears stated age. Podiatric Exam Vascular: DP and PT pulses are weakly palpable. Capillary refill time is less than 3 seconds to distal digits with exception of delayed cap refill to the left second toe. Skin temperature is warm to cool from proximal tibial tuberosity to distal digit. Neurological: Gross sensation is intact. Protective sensation is absent using the [place] Asif monofilament. Dermatologic: See images below Musculoskeletal: Ankle joint range of motion is intact. Muscle strength is 5/5 to dorsiflexors, plantar flexors, inverters and everters. Compartments soft and compressible. No calf pain Diagnoses: 1. Chronic ulcer of right leg with fat layer exposed (HCC) Ambulatory referral to Wound Clinic Media: 06/23/2024 Assessment/Plan: Patient was seen and evaluated. Discussed all clinical findings Patient's bilateral lower extremity wounds have improved since the last clinic visit however the posterior right leg wound is open with serous drainage noted. Most concerning are patient's open wound to the left second toe. This wound does not probe down to bone however the toe is erythematous, edematous and concerning for underlying osteomyelitis. An x-ray of the left foot was ordered and interpreted today by me showing early erosive changes to the distal tuft of the distal phalanx of the left second toe. Discussed with patient that it is medically necessary for him to get admitted to the hospital for IV antibiotics and further imaging to confirm the underlying osteomyelitis diagnosis. Patient understand that he is at high risk for worsening infection and amputation of the left second toe. Patient agreed to be admitted to the hospital. I spoke with bed coordinator and hospitalist to arrange direct admission to [facility]. Upon admission please order the following: - CBC with differential - CMP - ESR and CRP - Hemoglobin A1c - MRI of the left foot - Follow-up on wound culture which was obtained at the wound care center. We will continue to follow closely. This note was partially created using voice recognition software and is inherently subject to errors including those of syntax and sound-alike substitutions which may escape proofreading. In such instances, original meaning may be extrapolated by contextual derivation. Alena Mora DPM, MS Podiatric Physician & Surgeon documented in this [id number] History of Present illness Narrative* Jace Zeng Daytonisidrosandeep, - 06/21/2024 11:20 AM EDT Subjective Patient ID: Dyllan Huertas is a 63 y.o. male who presents for ER Follow-up (Leg/scrotal swelling /Reports recurring groin swelling ). HPI Patient is here today for ER foow up Pt reports that on Wednesday he noticed significant swelling in his testicle and into the groin area. No pain, fevers, no urinary issues. He went to the ED where he had bloodwork done, bnp elevated. Was given rx for lasix, reports leg swelling is improved but he has significant swelling still in his testicles. Review of Systems Constitutional: Negative for diaphoresis and fatigue. HENT: Negative for congestion and sinus pressure. Cardiovascular: Positive for leg swelling. Objective BP 101/60 Pulse 80 Ht 1.803 m (5' 11) Wt 132 kg (292 lb) BMI 40.73 kg/m Physical Exam Constitutional: General: He is not in acute distress. Appearance: Normal appearance. HENT: Head: Normocephalic. Nose: Nose normal. Mouth/Throat: Pharynx: No oropharyngeal exudate. Eyes: General: Right eye: No discharge. Left eye: No discharge. Extraocular Movements: Extraocular movements intact. Pupils: Pupils are equal, round, and reactive to light. Cardiovascular: Rate and Rhythm: Normal rate and regular rhythm. Heart sounds: No murmur heard. No gallop. Pulmonary: Effort: Pulmonary effort is normal. No respiratory distress. Breath sounds: Normal breath sounds. No wheezing. Musculoskeletal: General: No swelling. Normal range of motion. Skin: General: Skin is warm and dry. Coloration: Skin is not jaundiced. Neurological: General: No focal deficit present. Mental Status: He is alert and oriented to person, place, and time. Cranial Nerves: No cranial nerve deficit. Psychiatric: Mood and Affect: Mood normal. Behavior: Behavior normal. Assessment/Plan Problem List Items Addressed This Visit DM (diabetes mellitus), type 2 with neurological complications (Multi) Hyperlipidemia Other Visit Diagnoses Leg swelling - Primary Relevant Medications bumetanide (Bumex) 0.5 mg tablet Other Relevant Orders Basic Metabolic Panel Transthoracic Echo (TTE) Complete Heart failure due to high blood pressure (Multi) Relevant Orders Transthoracic Echo (TTE) Complete 1. HTN, CHF, CAD s/p CABG x 3 2017 - sees Dr Dailey in [place] - continue chlorthalidone 25mg po daily - coreg 25mg po bid - continue lisinopril 20mg po daily - stop lasix and change to bumex - check bmp - check current echo - recommend pt schedule with cardiology for sooner appt than 12/25 - has no testicular pain so I do not think it is in the testicle itself other than anasarca associated with the edema Final diagnoses: [M79.89] Leg swelling [I11.0] Heart failure due to high blood pressure (Multi) [E78.2] Mixed hyperlipidemia [E11.49] DM (diabetes mellitus), type 2 with neurological complications (Multi) documented in this [facility] Work Phone: [phone]) [phone] Johnna Mora DPM Patient Name: Dyllan Huertas. . Date of : 1960, 63 y.o.. Gender: male. Subjective: Patient is a pleasant 63-year-old male who presents to clinic for bilateral lower extremity wounds. Patient states that he noticed these wounds on 05/21/2024 and went to the emergency department on the same. Reports that he woke up and saw these wounds and was unsure if he scratched his legs while sleeping. Denies any trauma or injury. He also reports a new wound on his left second toe that he noticed on 05/30/2024. States that he removed his sock and saw the wound. Patient stated he has been active. Reports that his last hemoglobin A1c was 10.3%. He also reports complaining his oral antibiotic course that was prescribed to him by the emergency department. No other pedal complaints at this time. Denies fevers, chills, nausea, vomiting, chest pain, shortness of breath, or any other constitutional symptoms. Past Medical History: Diagnosis Date Acquired equinus deformity of right foot Acquired hammer toe of right foot Angina pectoris with documented spasm ([facility]) Calluse Cellulitis of left toe Charcot's joint, right ankle and foot Chronic osteomyelitis with draining sinus, right ankle and foot ([facility]) Complication of external fixation device with internal components ([facility]) Coronary artery disease Dehiscence of incision Diabetes mellitus, type 2 ([facility]) Dystrophic nail Edema Effusion of ankle and foot joint Fracture of metatarsal, closed Fungal toenail infection Hyperlipidemia Hypertension Hypothyroidism 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 ([facility]) Non-pressure chronic ulcer of other part of left foot limited to breakdown of skin ([facility]) Non-pressure chronic ulcer of other part of right foot with fat layer exposed ([facility]) limited to breakdown of skin Obesity Overflow incontinence Peripheral neuropathy Pressure ulcer of right foot, stage 2 ([facility]) S/P foot surgery, right 12/09/2019 11/20/2019Right foot reconstruction surgery with external fixation 12/02/2019 Right foot I and D Sleep apnea, obstructive does not use CPAP Tibia/fibula fracture Past Surgical History: Procedure Laterality Date APPENDECTOMY ARTHRODESIS SUBTALAR Right 05/01/2020 Procedure: RIGHT ANKLE ARTHRODESIS, SUBTALAR ARTHRODESIS RIGHT ANKLE, Bone [place] Graft From Right Fibula, Application of Splint; Surgeon: Alena Mora DPM; Location: [facility]; Service: Podiatry ARTHROPLASTY TOE Right 01/25/2019 Procedure: ARTHROPLASTY 2ND TOE RIGHT FOOT; Surgeon: Rosa M Robles DPM; [facility] [facility]; Service: Podiatry CABG 2017 CARDIAC SURGERY 2017 CABG tripe bypass CLOSED REDUCTION PERCUTANEOUS PINNING LOWER EXTREMITY N/A 12/02/2019 Procedure: ADJUSTMENT of EXTERNAL FIXATOR; Surgeon: Alena Mora DPM; Location: [facility]; Service: Podiatry CT COLONOSCOPY 02/24/[address] COLONOSCOPY 03/21/2023 CT COLONOSCOPY CYST REMOVED FROM CHEST N/A INCISION AND DRAINAGE FOOT AND ANKLE Right 12/02/2019 Procedure: RIGHT FOOT I&D; Surgeon: Alena Mora DPM; Location: [facility]; Service: Podiatry LIPOSUCTION METAL IN LEFT LEFT WRIST AND LEFT 5TH TOE Left ORIF FOOT FRACTURE Left 07/03/2013 5th metatarsal ORTHOPEDIC SURGERY RECONSTRUCTION FOOT CHARCOT Right 11/20/2019 Procedure: RIGHT FOOT RECONSTRUCTION WITH APPLICATION OF CIRCULAR STATIC EXTERNAL FIXATION; Surgeon: Alena Mora DPM; Location: [facility]; Service: Podiatry RT FOOT SURGERY Right SHARMILA JEONG N/A Social History Socioeconomic History Marital status: Single Tobacco Use Smoking status: Never Smokeless tobacco: Never Vaping Use Vaping status: Never Used Substance and Sexual Activity Alcohol use: Yes Comment: very very rarely Drug use: Never Sexual activity: Not Currently Physical Examination: BP 139/78 (BP Location: Left arm, Patient Position: Sitting, BP Cuff Size: Adult) Pulse 70 Temp 98.3 degrees F (36.8 degrees C) (Temporal) General Appearance: Alert, cooperative, no distress, appears stated age. Podiatric Exam Vascular: DP and PT pulses are palpable 2/4. Capillary refill time is less than 3 secs to distal digits. Skin temperature is warm to warm from proximal tibial tuberosity to distal digit. +2 pitting edema noted to bilateral lower extremities Neurological: Gross sensation is intact. Protective sensation is absent using the [place]if monofilament. Dermatologic: Full-thickness ulceration noted to bilateral legs. See images below. Interdigital spaces are clean dry and intact. Musculoskeletal: Patient is able to wiggle digits. Ankle joint range of motion is absent on the right lower extremity secondary to prior IM nail fixation. Compartments soft and compressible. No calf pain Diagnoses: 1. Bilateral lower leg cellulitis 2. Chronic ulcer of right leg with fat layer exposed (HCC) Wound Aerobic Cult (more content not included)...[facility] [id number] History of Present illness Narrative* Alena Mora DPM - 06/07/2024 5:53 AM EDT Images from the original note were not included. Alena Mora DPM Patient Name: Dyllan Huertas. . Date of : 1960, 63 y.o.. Gender: male. Subjective: Patient is a pleasant 63-year-old male who presents to clinic for bilateral lower extremity wounds.Patient states that he noticed these wounds on 05/21/2024 and went to the emergency department on the same. Reports that he woke up and saw these wounds and was unsure if he scratched his legs while sleeping. Denies any trauma or injury. He also reports a new wound on his left second toe that he noticed on 05/30/2024. States that he removed his sock and saw the wound. Patient stated he has been active. Reports that his last hemoglobin A1c was 10.3%. He also reports complaining his oral antibioticcourse that was prescribed to him by the emergency department. No other pedal complaints at this time. Denies fevers, chills, nausea, vomiting, chest pain, shortness of breath, or any other constitutional symptoms. Past Medical History: Diagnosis Date Acquired equinus deformity of right foot Acquired hammer toe of right foot Angina pectoris with documented spasm ([facility]) Calluse Cellulitis of left toe Charcot's joint, right ankle and foot Chronic osteomyelitis with draining sinus, right ankle and foot ([facility]) Complication of external fixation device with internal components ([facility]) Coronary artery disease Dehiscence of incision Diabetes mellitus, type 2 ([facility]) Dystrophic nail Edema Effusion of ankle and foot joint Fracture of metatarsal, closed Fungal toenail infection Hyperlipidemia Hypertension Hypothyroidism 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 ([facility]) Non-pressure chronic ulcer of other part of left foot limited to breakdown of skin ([facility]) Non-pressure chronic ulcer of other part of right foot with fat layer exposed ([facility]) limited to breakdown of skin Obesity Overflow incontinence Peripheral neuropathy Pressure ulcer of right foot, stage 2 ([facility]) S/P foot surgery, right 12/09/2019 11/20/2019Right foot reconstruction surgery with external fixation 12/02/2019 Right foot I and D Sleep apnea, obstructive does not use CPAP Tibia/fibula fracture Past Surgical History: Procedure Laterality Date APPENDECTOMY ARTHRODESIS SUBTALAR Right 05/01/2020 Procedure: RIGHT ANKLE ARTHRODESIS, SUBTALAR ARTHRODESIS RIGHT ANKLE, Bone [place] Graft From RightFibula, Application of Splint; Surgeon: Alena Mora DPM; Location: [facility]; Service: Podiatry ARTHROPLASTY TOE Right 01/25/2019 Procedure: ARTHROPLASTY 2ND TOE RIGHT FOOT; Surgeon: Rosa M Robles DPM; [facility] [facility]; Service: Podiatry CABG 2017 CARDIAC SURGERY 2017 CABG tripe bypass CLOSED REDUCTION PERCUTANEOUS PINNING LOWER EXTREMITY N/A 12/02/2019 Procedure: ADJUSTMENT of EXTERNAL FIXATOR; Surgeon: Alena Mora DPM; Location: [facility]; Service: Podiatry CT COLONOSCOPY 02/24/[address] COLONOSCOPY 03/21/2023 CT COLONOSCOPY CYST REMOVED FROM CHEST N/A INCISION AND DRAINAGE FOOT AND ANKLE Right 12/02/2019 Procedure: RIGHT FOOT I&D; Surgeon: Alena Mora DPM; Location: [facility]; Service: Podiatry LIPOSUCTION METAL IN LEFT LEFT WRIST AND LEFT 5TH TOE Left ORIF FOOT FRACTURE Left 07/03/2013 5th metatarsal ORTHOPEDIC SURGERY RECONSTRUCTION FOOT CHARCOT Right 11/20/2019 Procedure: RIGHT FOOT RECONSTRUCTION WITH APPLICATION OF CIRCULAR STATIC EXTERNAL FIXATION; Surgeon: Alena Mora DPM; Location: [facility]; Service: Podiatry RT FOOT SURGERY Right TUMMY TUCK N/A Social History Socioeconomic History Marital status: Single Tobacco Use Smoking status: Never Smokeless tobacco: Never Vaping Use Vaping status: Never Used Substance and Sexual Activity Alcohol use: Yes Comment: very very rarely Drug use: Never Sexual activity: Not Currently Physical Examination: BP 139/78 (BP Location: Left arm, Patient Position: Sitting, BP Cuff Size: Adult) Pulse 70 Temp98.3 F (36.8 C) (Temporal) General Appearance: Alert, cooperative, no distress, appears stated age. Podiatric Exam Vascular: DP and PT pulses are palpable 2/4. Capillary refill time is less than 3 secs to distal digits. Skin temperature is warm to warm from proximal tibial tuberosity to distal digit. +2 pitting edema noted to bilateral lower extremities Neurological: Gross sensation is intact. Protective sensation is absent using the [place] monofilament. Dermatologic: Full-thickness ulceration noted to bilateral legs. See images below. Interdigital spaces are clean dry and intact. Musculoskeletal: Patient is able to wiggle digits. Ankle joint range of motion is absent on the right lower extremity secondary to prior IM nail fixation. Compartments soft and compressible. No calf pain Diagnoses: 1. Bilateral lower leg cellulitis 2. Chronic ulcer of right leg with fat layer exposed (HCC) Wound Aerobic Culture Ambulatory referral to Wound Clinic 3. Chronic ulcer of left leg with fat layer exposed (HCC) 4. Skin ulcer of left foot with fat layer exposed (HCC) 5. Skin ulcer of second toe of left foot with fat layer exposed (HCC) 6. Diabetic peripheral neuropathy ([facility]) 7. Charcot foot due to diabetes mellitus (HCC) Imaging: Right tib-fib 2 views weightbearing radiographs were ordered and interpreted as follows: Intact IM nail fixation with osseous consolidation noted across the tibiotalar and subtalar joints. No sign of lucency or failure of hardware No soft tissue gas emphysema noted Assessment/Plan: Patient was seen and evaluated. Discussed all clinical findings. I ordered, interpreted, and discussed right tib-fib radiographic findings with patient as noted above. Discussed with patient that he has cellulitis to bilateral lower extremities due to multiple bilateral lower extremity wounds. A wound swab culture from the right leg wound was obtained and sent to microbiology for culture sensitivity. An oral antibiotic was prescribed and sent to patient's pharmacy. Discussed with patient that it would be best for him to get admitted to the hospital for IV antibiotics. However, when I contacted bed coordinator, there are no available beds at this time and therefore, we will have to to try again to get him to the hospital for following day. In the meantime, an urgent referral was placed for patient to be seen at the wound care center in 3days for reevaluation if patient is unable to be admitted to the hospital. In the meantime, applied Betadine wet-to-dry dressing to bilateral lower extremity wounds. Patient is to change dressing once daily. All questions were answered to patient satisfaction. Patient understands to call with any questionsor concerns. Will continue to follow patient closely as he is at high risk for worsening infection that can result in amputations. This note was partially created using voice recognition software and is inherently subject to errors including those of syntax and sound-alike substitutions which may escape proofreading. In such instances, original meaning may be extrapolated by contextual derivation. Alena Mora DPM, MS Podiatric Physician & Surgeon documented in this [id number] History of Present illness Narrative* Jace Reeder, - 04/17/2024 10:20 AM EDT Subjective Patient ID: Dyllan Huertas is a 63 y.o. male who presents for Follow-up (3 month ). HPI Patient is here today for 3 mo follow up A1c up to 10.4%. Pt admits that he does not check his blood sugars and has not been good about his diet. Denies polyuria. Review of Systems Constitutional: Negative for activity change, appetite change, chills and fatigue. HENT: Negative for congestion, postnasal drip, sinus pressure, sinus pain and sore throat. Respiratory: Negative for cough, shortness of breath and wheezing. Cardiovascular: Negative for chest pain and leg swelling. Gastrointestinal: Negative for abdominal distention, diarrhea, nausea and vomiting. Musculoskeletal: Positive for neck pain. Negative for back pain. Neurological: Negative for weakness and numbness. Objective BP 148/81 Pulse 88 Ht 1.803 m (5' 11) Wt 127 kg (280 lb) BMI 39.05 kg/m Physical Exam Constitutional: General: He is not in acute distress. Appearance: Normal appearance. HENT: Head: Normocephalic. Nose: Nose normal. Mouth/Throat: Pharynx: No oropharyngeal exudate. Eyes: General: Right eye: No discharge. Left eye: No discharge. Extraocular Movements: Extraocular movements intact. Pupils: Pupils are equal, round, and reactive to light. Cardiovascular: Rate and Rhythm: Normal rate and regular rhythm. Heart sounds: No murmur heard. No gallop. Pulmonary: Effort: Pulmonary effort is normal. No respiratory distress. Breath sounds: Normal breath sounds. No wheezing. Abdominal: General: Bowel sounds are normal. There is no distension. Palpations: Abdomen is soft. Tenderness: There is no abdominal tenderness. Musculoskeletal: General: Swelling present. Normal range of motion. Comments: Charcot foot braces bilaterally, chronic venous stasis Normal Rom in cervical spine, no radicular symptoms Skin: General: Skin is warm and dry. Coloration: Skin is not jaundiced. Neurological: General: No focal deficit present. Mental Status: He is alert and oriented to person, place, and time. Cranial Nerves: No cranial nerve deficit. Psychiatric: Mood and Affect: Mood normal. Behavior: Behavior normal. Assessment/Plan Problem List Items Addressed This Visit DM (diabetes mellitus), type 2 with neurological complications (Multi) Relevant Orders Hemoglobin A1C Lipid Panel Comprehensive Metabolic Panel Hypothyroidism Hyperlipidemia Obesity, morbid (Multi) - Primary DMII , diabetic neuropathy, charcot foot s/p surgery - pt not currently checking sugars, recommend checking blood sugars 2-3 x a day - sees Podiatry -A1c 10.3% - pt would like to not change meds as he knows he can do better with checking his blood sugars and diet - continue gabapentin - continue metformin 1000mg po bid - recommend eye exam 2. HTN, CHF, CAD s/p CABG x 3 2016 - sees Dr Dailey in [place] - continue chlorthalidone 25mg po daily - coreg 25mg po bid - continue lisinopril 20mg po daily 3. HLD - continue fenofibrate - continue crestor 4. BPH - on proscar and flomax 5. Cervical pain - is going to see chiropractor - if not improving can order xray, try muscle relaxer and pt Final diagnoses: [E66.01] Obesity, morbid (Multi) [E78.2] Mixed hyperlipidemia [E11.49] DM (diabetes mellitus), type 2 with neurological complications (Multi) [E03.9] Acquired hypothyroidism documented in this [facility] Work Phone: [phone]) [phone] History of Present illness Narrative* Torie Avendano CNP - 04/12/2024 5:04 PM EDT Images from the original note were not included. Podiatry Office Visit Subjective: Dyllan Huertas is a pleasant 63 y.o. male presenting to podiatry office for diabetic nail care.Presenting with elongated, thickened, dystrophic and mycotic toenails that are painful. Continues to use the AFOs he was prescribed in November of 2022 for bilateral Charcot feet status post reconstruction. States he has no difficulty with them. Denies any recent falling or pedal injury. Feet are in much better repair than before, no dry calluses, fissures or cracks as he has been moisturizing consistently. He repeatedly bumps the front of his legs, causing superficial ulcers/blisters. He is treating these with xeroform. Ambulating without any assistive devices. States he does foot checks twice daily morning and evening to ensure his feet stay in good repair. Most recent hemoglobin A1c on file was 6.4 (this is from 2 years ago). No new pedal complaints at this time. Podiatric exam: Vascular: DP and PT pulses are palpable but diminished. Capillary refill time is less than 3 seconds to distal digits. Skin temperature is warm to warm from proximal tibial tuberosity to distal digit. No significant pedal edema, Zechariah wraps in place to bilateral lower legs Neurological: Gross sensation is diminished. Protective sensation is minimal. Babinski's is normal. Dermatologic: Bilateral lower extremities with intact integument, no sores or wounds or ulcers withthe exception of small bilateral anterior leg skin tears with surrounding erythema. Interdigital spaces moist with debris, skin is intact without fissures or tinea following flossing. Nails 1-10 elongated, thickened, dystrophic, mycotic with some subungual debris. Musculoskeletal: No motion across the ankle joint on the right foot status post IM nail fusion of the ankle and subtalar joints, right. Ankle joint range of motion is intact to the left foot. Compartments soft and compressible. No calf pain. Medial talar prominence noted to the left foot. Collapse of the medial longitudinal arch, left foot Review of systems unremarkable, unless otherwise noted. Alert, oriented, cooperative with appropriate thought process. Assessment/Plan: 1. Onychomycosis 2. Diabetic neuropathy 3. History of Charcot foot reconstruction, right foot Imaging -none obtained this visit Patient was seen and examined Clinical findings discussed, questions and concerns addressed to patient's satisfaction Patient has fungal toenails x 10 that are elongated, thickened, dystrophic and mycotic that requiremedical debridement using podiatric nail nippers. Toenails were debrided accordingly to appropriatelength and thickness. Patient expressed pain relief for the procedure. Nail debridement medically necessary consistent with Q8 modifier Continue moisturizing feet and flossing between toes, feet are in much better repair than before Continue doing daily foot checks, wear supportive shoes and bilateral foot brace/AFO Patient will be picking up his new diabetic shoes in the next few weeks Bringing disability paperwork for renewal, this will be filled out and faxed as appropriate Patient encouraged to avoid too much moisture to anterior leg ulcers, leg a single layer small pieces of Xeroform over ulcers only, secure with Kerlix and Zechariah for compression Follow-up in the office in 3 months for at-risk nail care, sooner if legs do not heal BP (!) 132/54 (BP Location: Right arm, Patient Position: Sitting, BP Cuff Size: Adult) Pulse 80 Temp 98.2 F (36.8 C) (Infrared) The following portions of the patient's history were reviewed and updated as appropriate: allergies, current medications, family history, past medical history, past social history and surgical history. Past Medical History: Diagnosis Date Acquired equinus deformity of right foot Acquired hammer toe of right foot Angina pectoris with documented spasm ([facility]) Calluse Cellulitis of left toe Charcot's joint, right ankle and foot Chronic osteomyelitis with draining sinus, right ankle and foot ([facility]) Complication of external fixation device with internal components ([facility]) Coronary artery disease Dehiscence of incision Diabetes mellitus, type 2 ([facility]) Dystrophic nail Edema Effusion of ankle and foot joint Fracture of metatarsal, closed Fungal toenail infection Hyperlipidemia Hypertension Hypothyroidism 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 ([facility]) Non-pressure chronic ulcer of other part of left foot limited to breakdown of skin ([facility]) Non-pressure chronic ulcer of other part of right foot with fat layer exposed ([facility]) limited to breakdown of skin Obesity Overflow incontinence Peripheral neuropathy Pressure ulcer of right foot, stage 2 ([facility]) S/P foot surgery, right 12/09/2019 11/20/2019Right foot reconstruction surgery with external fixation 12/02/2019 Right foot I and D Sleep apnea, obstructive does not use CPAP Tibia/fibula fracture Past Surgical History: Procedure Laterality Date APPENDECTOMY ARTHRODESIS SUBTALAR Right 05/01/2020 Procedure: RIGHT ANKLE ARTHRODESIS, SUBTALAR ARTHRODESIS RIGHT ANKLE, Bone [place] Graft From RightFibula, Application of Splint; Surgeon: Alena Mora DPM; Location: [facility] OR; Service: Podiatry ARTHROPLASTY TOE Right 01/25/2019 Procedure: ARTHROPLASTY 2ND TOE RIGHT FOOT; Surgeon: Rosa M Robles DPM; Location: [facility] [place]; Service: Podiatry CABG 2017 CARDIAC SURGERY 2017 CABG tripe bypass CLOSED REDUCTION PERCUTANEOUS PINNING LOWER EXTREMITY N/A 12/02/2019 Procedure: ADJUSTMENT of EXTERNAL FIXATOR; Surgeon: Alena Mora DPM; Location: [facility] OR; Service: Podiatry CT COLONOSCOPY 02/24/[address] COLONOSCOPY 03/21/2023 CT COLONOSCOPY CYST REMOVED FROM CHEST N/A INCISION AND DRAINAGE FOOT AND ANKLE Right 12/02/2019 Procedure: RIGHT FOOT I&D; Surgeon: Alena Mora DPM; Location: [facility] OR; Service: Podiatry LIPOSUCTION METAL IN LEFT LEFT WRIST AND LEFT 5TH TOE Left ORIF FOOT FRACTURE Left 07/03/2013 5th metatarsal ORTHOPEDIC SURGERY RECONSTRUCTION FOOT CHARCOT Right 11/20/2019 Procedure: RIGHT FOOT RECONSTRUCTION WITH APPLICATION OF CIRCULAR STATIC EXTERNAL FIXATION; Surgeon: Alena Mora DPM; Location: [facility] OR; Service: Podiatry RT FOOT SURGERY Right SHARMILA JEONG N/A No Known Allergies For any new medications prescribed today, patient was educated about indications for the medication, how to take the medication and potential side effects of the medications. This note was partially created using voice recognition software and is inherently subject to errors including those of syntax and sound-alike substitutions which may escape proofreading. In such instances, original meaning may be extrapolated by contextual derivation. Electronically signed by Cristiane Avendano CNP 245:04 PM documented in this [id number] History of Present illness Narrative* Jace Reeder, - 01/19/2024 1:40 PM EDT Subjective Patient ID: Dyllan Huertas is a 63 y.o. male who presents for Establish Care (MEDICAL SURGICAL TECH/EST CARE) and Med Refill (Patient states he gets his insulin OTC at [facility]; does not need Rx ). Med Refill Pertinent negatives include no chest pain, chills, congestion, coughing, fatigue, nausea, numbness,sore throat, vomiting or weakness. Pt is a 63 y.o. male patient who is here today to establish care. Pt has a pmhx of htn, DMII, BPH, hypothyroidism. Review of Systems Constitutional: Negative for activity change, appetite change, chills and fatigue. HENT: Negative for congestion, postnasal drip, sinus pressure, sinus pain and sore throat. Respiratory: Negative for cough, shortness of breath and wheezing. Cardiovascular: Negative for chest pain and leg swelling. Gastrointestinal: Negative for abdominal distention, diarrhea, nausea and vomiting. Musculoskeletal: Negative for back pain. Neurological: Negative for weakness and numbness. Objective BP 117/71 Pulse 93 Ht 1.803 m (5' 11) Wt 119 kg (262 lb) BMI 36.54 kg/m Physical Exam Constitutional: General: He is not in acute distress. Appearance: Normal appearance. HENT: Head: Normocephalic. Nose: Nose normal. Mouth/Throat: Mouth: Mucous membranes are dry. Pharynx: No oropharyngeal exudate. Eyes: General: Right eye: No discharge. Left eye: No discharge. Extraocular Movements: Extraocular movements intact. Pupils: Pupils are equal, round, and reactive to light. Cardiovascular: Rate and Rhythm: Normal rate and regular rhythm. Heart sounds: No murmur heard. No gallop. Pulmonary: Effort: Pulmonary effort is normal. No respiratory distress. Breath sounds: Normal breath sounds. No wheezing. Abdominal: General: Bowel sounds are normal. There is no distension. Palpations: Abdomen is soft. Tenderness: There is no abdominal tenderness. Musculoskeletal: General: No swelling. Normal range of motion. Cervical back: Neck supple. No tenderness. Comments: Isela lower leg braces Skin: General: Skin is warm and dry. Coloration: Skin is not jaundiced. Neurological: General: No focal deficit present. Mental Status: He is alert and oriented to person, place, and time. Cranial Nerves: No cranial nerve deficit. Psychiatric: Mood and Affect: Mood normal. Behavior: Behavior normal. Immunizations Flu shot 2022 COVID received PNA received Shingles received RSV recommended Colon cancer screening 02/23 PSA will check records Assessment/Plan Problem List Items Addressed This Visit Hypothyroidism Relevant Medications levothyroxine (Synthroid, Levoxyl) 100 mcg tablet Other Relevant Orders TSH with reflex to Free T4 if abnormal Hyperlipidemia Relevant Medications fenofibrate (Triglide) 160 mg tablet Other Visit Diagnoses Type 2 diabetes mellitus without complication, without long-term current use of insulin (Multi) - Primary Relevant Medications metFORMIN XR 500 mg 24 hr tablet rosuvastatin (Crestor) 20 mg tablet blood sugar diagnostic (True Metrix Glucose Test Strip) strip lancets (TRUEplus Lancets) 30 gauge misc Other Relevant Orders Hemoglobin A1C Comprehensive Metabolic Panel Lipid Panel Primary hypertension Relevant Medications carvedilol (Coreg) 25 mg tablet chlorthalidone (Hygroton) 25 mg tablet lisinopril 20 mg tablet Benign prostatic hyperplasia with urinary frequency Relevant Medications finasteride (Proscar) 5 mg tablet tamsulosin (Flomax) 0.4 mg 24 hr capsule Diabetic polyneuropathy associated with type 2 diabetes mellitus (Multi) Relevant Medications gabapentin (Neurontin) 300 mg capsule DMII , diabetic neuropathy, charcot foot s/p surgery - pt not currently checking sugars - sees Podiatry - will order A1c, cmp, lipid - continue gabapentin - continue metformin 1000mg po bid - recommend eye exam 2. HTN, CHF, CAD s/p CABG x 3 2017 - sees Dr Dailey in [place] - continue chlorthalidone 25mg po daily - coreg 25mg po bid - continue lisinopril 20mg po daily 3. HLD - continue fenofibrate - continue crestor 4. BPH - on proscar and flomax Final diagnoses: [E11.9] Type 2 diabetes mellitus without complication, without long-term current use of insulin (Multi) [I10] Primary hypertension [E78.2] Mixed hyperlipidemia [N40.1, R35.0] Benign prostatic hyperplasia with urinary frequency [E11.42] Diabetic polyneuropathy associated with type 2 diabetes mellitus (Multi) [E03.9] Acquired hypothyroidism documented in this [facility] Work Phone: [phone] 177-229004-03-2024 History of Present illness Narrative* Torie Avendano CNP - 01/05/2024 11:09 AM EDT Images from the original note were not included. Podiatry Office Visit Subjective: Dyllan Huertas is a pleasant 63 y.o. male presenting to podiatry office for diabetic nail care.Presenting with elongated, thickened, dystrophic and mycotic toenails that are painful. Continues to use the AFOs he was prescribed in November of 2022 for bilateral Charcot feet status post reconstruction. States he has no difficulty with them. Denies any recent falling or pedal injury. Feet are in much better repair than before, no dry calluses, fissures or cracks as he has been moisturizing consistently. He did bump the right anterior leg against something and has been putting Medihoney and Xeroform on the ulceration. Ambulating without any assistive devices. States he does foot checks twice daily morning and evening to ensure his feet stay in good repair. Most recent hemoglobin A1c on file was 6.4 (this is from 2 years ago). No new pedal complaints at this time. Podiatric exam: Vascular: DP and PT pulses are palpable but diminished. Capillary refill time is less than 3 seconds to distal digits. Skin temperature is warm to warm from proximal tibial tuberosity to distal digit. No significant pedal edema, Zechariah wraps in place to bilateral lower legs Neurological: Gross sensation is diminished. Protective sensation is minimal. Babinski's is normal. Dermatologic: Bilateral lower extremities with intact integument, no sores or wounds or ulcers withthe exception of small right anterior leg skin tear with surrounding erythema. Interdigital spaces clean and dry, no significant debris this time. Nails 1-10 elongated, thickened, dystrophic, mycoticwith some subungual debris. Musculoskeletal: No motion across the ankle joint on the right foot status post IM nail fusion of the ankle and subtalar joints, right. Ankle joint range of motion is intact to the left foot. Compartments soft and compressible. No calf pain. Medial talar prominence noted to the left foot. Collapse of the medial longitudinal arch, left foot Medihoney evident in wound bed Review of systems unremarkable, unless otherwise noted. Alert, oriented, cooperative with appropriate thought process. Assessment/Plan: 1. Onychomycosis 2. Diabetic neuropathy 3. History of Charcot foot reconstruction, right foot Imaging -none obtained this visit Patient was seen and examined Clinical findings discussed, questions and concerns addressed to patient's satisfaction Patient has fungal toenails x 10 that are elongated, thickened, dystrophic and mycotic that requiremedical debridement using podiatric nail nippers. Toenails were debrided accordingly to appropriatelength and thickness. Patient expressed pain relief for the procedure. Nail debridement medically necessary consistent with Q8 modifier Continue moisturizing feet and flossing between toes, feet are in much better repair than before Continue doing daily foot checks, wear supportive shoes and bilateral foot brace/AFO Prescription written for 1 pair of diabetic shoes with inserts, his current shoes are worn out. AFOs remain in good repair Patient was encouraged to avoid using both Medihoney and Xeroform as this is causing increased moisture and maceration. Patient may apply small piece of Xeroform over the ulceration and secure with dry dressing daily No debridement necessary at this time. Follow-up in the office in about 3 months for nail care patient understands he may return sooner ifthe skin tear to the right anterior leg worsens or fails to resolve. BP (!) 152/72 (BP Location: Left arm, Patient Position: Sitting, BP Cuff Size: Adult) Pulse 90 Temp 98.5 F (36.9 C) (Infrared) The following portions of the patient's history were reviewed and updated as appropriate: allergies, current medications, family history, past medical history, past social history and surgical history. Past Medical History: Diagnosis Date Acquired equinus deformity of right foot Acquired hammer toe of right foot Angina pectoris with documented spasm ([facility]) Calluse Cellulitis of left toe Charcot's joint, right ankle and foot Chronic osteomyelitis with draining sinus, right ankle and foot ([facility]) Complication of external fixation device with internal components ([facility]) Coronary artery disease Dehiscence of incision Diabetes mellitus, type 2 ([facility]) Dystrophic nail Edema Effusion of ankle and foot joint Fracture of metatarsal, closed Fungal toenail infection Hyperlipidemia Hypertension Hypothyroidism 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 ([facility]) Non-pressure chronic ulcer of other part of left foot limited to breakdown of skin ([facility]) Non-pressure chronic ulcer of other part of right foot with fat layer exposed ([facility]) limited to breakdown of skin Obesity Overflow incontinence Peripheral neuropathy Pressure ulcer of right foot, stage 2 ([facility]) S/P foot surgery, right 12/09/2019 11/20/2019Right foot reconstruction surgery with external fixation 12/02/2019 Right foot I and D Sleep apnea, obstructive does not use CPAP Tibia/fibula fracture Past Surgical History: Procedure Laterality Date APPENDECTOMY ARTHRODESIS SUBTALAR Right 05/01/2020 Procedure: RIGHT ANKLE ARTHRODESIS, SUBTALAR ARTHRODESIS RIGHT ANKLE, Bone [place] Graft From RightFibula, Application of Splint; Surgeon: Alena Mora DPM; Location: [facility] OR; Service: Podiatry ARTHROPLASTY TOE Right 01/25/2019 Procedure: ARTHROPLASTY 2ND TOE RIGHT FOOT; Surgeon: Rosa M Robles DPM; Location: [facility] [place]; Service: Podiatry CABG 2017 CARDIAC SURGERY 2017 CABG tripe bypass CLOSED REDUCTION PERCUTANEOUS PINNING LOWER EXTREMITY N/A 12/02/2019 Procedure: ADJUSTMENT of EXTERNAL FIXATOR; Surgeon: Alena Mora DPM; Location: [facility] OR; Service: Podiatry CT COLONOSCOPY 02/24/[address] COLONOSCOPY 03/21/2023 CT COLONOSCOPY CYST REMOVED FROM CHEST N/A INCISION AND DRAINAGE FOOT AND ANKLE Right 12/02/2019 Procedure: RIGHT FOOT I&D; Surgeon: Alena Mora DPM; Location: [facility] OR; Service: Podiatry LIPOSUCTION METAL IN LEFT LEFT WRIST AND LEFT 5TH TOE Left ORIF FOOT FRACTURE Left 07/03/2013 5th metatarsal ORTHOPEDIC SURGERY RECONSTRUCTION FOOT CHARCOT Right 11/20/2019 Procedure: RIGHT FOOT RECONSTRUCTION WITH APPLICATION OF CIRCULAR STATIC EXTERNAL FIXATION; Surgeon: Alena Mora DPM; Location: [facility] OR; Service: Podiatry RT FOOT SURGERY Right [place] N/A No Known Allergies For any new medications prescribed today, patient was educated about indications for the medication, how to take the medication and potential side effects of the medications. This note was partially created using voice recognition software and is inherently subject to errors including those of syntax and sound-alike substitutions which may escape proofreading. In such instances, original meaning may be extrapolated by contextual derivation. Electronically signed by Cristiane Avendano CNP 01/04/2411:10 AM documented in this [id number] History of Present illness Narrative* Torie Avendano CNP - 10/05/2023 4:30 PM EST Podiatry Office Visit Subjective: Dyllan Huertas is a pleasant 62 y.o. male presenting to podiatry office for diabetic nail care.Presenting with elongated, thickened, dystrophic and mycotic toenails that are painful. Continues to use the AFOs he was prescribed in November of 2022 for bilateral Charcot feet status post reconstruction. States he has no difficulty with them. Denies any recent falling or pedal injury. Feet are in much better repair than before, no dry calluses, fissures or cracks. He has continued to lose weight and is looking quite well. Ambulating without any assistive devices. States he does foot checks twice daily morning and evening to ensure his feet stay in good repair. Most recent hemoglobin A1c onfile was 6.4. No new pedal complaints at this time. Podiatric exam: Vascular: DP and PT pulses are palpable but diminished. Capillary refill time is less than 3 seconds to distal digits. Skin temperature is warm to warm from proximal tibial tuberosity to distal digit. No significant pedal edema, Zechariah wraps in place to bilateral lower legs Neurological: Gross sensation is diminished. Protective sensation is minimal. Babinski's is normal. Dermatologic: Bilateral lower extremities with intact integument, no sores or wounds or ulcers. Interdigital spaces clean and dry, no significant debris this time. Nails 1-10 elongated, thickened, dystrophic, mycotic with some subungual debris. Musculoskeletal: No motion across the ankle joint on the right foot status post IM nail fusion of the ankle and subtalar joints, right. Ankle joint range of motion is intact to the left foot. Compartments soft and compressible. No calf pain. Medial talar prominence noted to the left foot. Collapse of the medial longitudinal arch, left foot Review of systems unremarkable, unless otherwise noted. Alert, oriented, cooperative with appropriate thought process. Assessment/Plan: 1. Onychomycosis 2. Diabetic neuropathy 3. History of Charcot foot reconstruction, right foot Imaging -none obtained this visit Patient was seen and examined Clinical findings discussed, questions and concerns addressed to patient's satisfaction Patient has fungal toenails x 10 that are elongated, thickened, dystrophic and mycotic that requiremedical debridement using podiatric nail nippers. Toenails were debrided accordingly to appropriatelength and thickness. Patient expressed pain relief for the procedure. Nail debridement medically necessary consistent with Q8 modifier Continue moisturizing feet and flossing between toes, feet are in much better repair than before Continue doing daily foot checks, wear supportive shoes and bilateral foot brace/AFO Follow-up in the office in about 3 months for nail care BP 137/76 (BP Location: Right arm, Patient Position: Sitting, BP Cuff Size: Adult) Pulse (!) 7 Temp 98.2 F (36.8 C) (Temporal) The following portions of the patient's history were reviewed and updated as appropriate: allergies, current medications, family history, past medical history, past social history and surgical history. Past Medical History: Diagnosis Date Acquired equinus deformity of right foot Acquired hammer toe of right foot Angina pectoris with documented spasm ([facility]) Calluse Cellulitis of left toe Charcot's joint, right ankle and foot Chronic osteomyelitis with draining sinus, right ankle and foot ([facility]) Complication of external fixation device with internal components ([facility]) Coronary artery disease Dehiscence of incision Diabetes mellitus, type 2 ([facility]) Dystrophic nail Edema Effusion of ankle and foot joint Fracture of metatarsal, closed Fungal toenail infection Hyperlipidemia Hypertension Hypothyroidism 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 ([facility]) Non-pressure chronic ulcer of other part of left foot limited to breakdown of skin ([facility]) Non-pressure chronic ulcer of other part of right foot with fat layer exposed ([facility]) limited to breakdown of skin Obesity Overflow incontinence Peripheral neuropathy Pressure ulcer of right foot, stage 2 ([facility]) S/P foot surgery, right 12/09/2019 11/20/2019Right foot reconstruction surgery with external fixation 12/02/2019 Right foot I and D Sleep apnea, obstructive does not use CPAP Tibia/fibula fracture Past Surgical History: Procedure Laterality Date APPENDECTOMY ARTHRODESIS SUBTALAR Right 05/01/2020 Procedure: RIGHT ANKLE ARTHRODESIS, SUBTALAR ARTHRODESIS RIGHT ANKLE, Bone [place] Graft From RightFibula, Application of Splint; Surgeon: Alena Mora DPM; Location: [facility]; Service: Podiatry ARTHROPLASTY TOE Right 01/25/2019 Procedure: ARTHROPLASTY 2ND TOE RIGHT FOOT; Surgeon: Rosa M Robles DPM; Location: [facility] [place] [facility]; Service: Podiatry CABG 2017 CARDIAC SURGERY 2017 CABG tripe bypass CLOSED REDUCTION PERCUTANEOUS PINNING LOWER EXTREMITY N/A 12/02/2019 Procedure: ADJUSTMENT of EXTERNAL FIXATOR; Surgeon: Alena Mora DPM; Location: [facility] OR; Service: Podiatry CT COLONOSCOPY 02/24/[address] COLONOSCOPY 03/21/2023 CT COLONOSCOPY CYST REMOVED FROM CHEST N/A INCISION AND DRAINAGE FOOT AND ANKLE Right 12/02/2019 Procedure: RIGHT FOOT I&D; Surgeon: Alena Mora DPM; Location: [facility] OR; Service: Podiatry LIPOSUCTION METAL IN LEFT LEFT WRIST AND LEFT 5TH TOE Left ORIF FOOT FRACTURE Left 07/03/2013 5th metatarsal ORTHOPEDIC SURGERY RECONSTRUCTION FOOT CHARCOT Right 11/20/2019 Procedure: RIGHT FOOT RECONSTRUCTION WITH APPLICATION OF CIRCULAR STATIC EXTERNAL FIXATION; Surgeon: Alena Mora DPM; [facility]: [facility]; Service: Podiatry RT FOOT SURGERY Right SHARMILA JEONG N/A No Known Allergies For any new medications prescribed today, patient was educated about indications for the medication, how to take the medication and potential side effects of the medications. This note was partially created using voice recognition software and is inherently subject to errors including those of syntax and sound-alike substitutions which may escape proofreading. In such instances, original meaning may be extrapolated by contextual derivation. Electronically signed by Cristiane Avendano CNP 244:30 PM documented in this [id number] History of Present illness Narrative* Torie Avendano CNP - 06/21/2023 10:28 AM EDT Podiatry Office Visit Subjective: Dyllan Huertas is a pleasant 62 y.o. male presenting to podiatry office for diabetic nail care.Presenting with elongated, thickened, dystrophic and mycotic toenails that are painful. Continues to use the AFOs he was prescribed in November of bilateral Charcot feet status post reconstruction. States he has no difficulty with them. Denies any recent falling or pedal injury. Feet are in much better repair than before. He has continued to lose weight and is looking quite well. Ambulating without any assistive devices. Wearing Zechariah wraps to bilateral lower legs, edema stable. Most recent hemoglobin A1c on file was 6.4. Patient states his painful neuropathy has improved as well. No new pedal c omplaints at this time. Podiatric exam: Vascular: DP and PT pulses are palpable but diminished. Capillary refill time is less than 3 seconds to distal digits. Skin temperature is warm to warm from proximal tibial tuberosity to distal digit. No significant pedal edema, Zechariah wraps in place to bilateral lower legs Neurological: Gross sensation is diminished. Protective sensation is minimal. Babinski's is normal. Dermatologic: Bilateral lower extremities with intact integument, no sores or wounds or ulcers. Interdigital spaces clean and dry, no significant debris this time. Nails 1-10 elongated, thickened, dystrophic, mycotic with some subungual debris. Musculoskeletal: No motion across the ankle joint on the right foot status post IM nail fusion of the ankle and subtalar joints, right. Ankle joint range of motion is intact to the left foot. Compartments soft and compressible. No calf pain. Medial talar prominence noted to the left foot. Collapse of the medial longitudinal arch, left foot Review of systems unremarkable, unless otherwise noted. Alert, oriented, cooperative with appropriate thought process. Assessment/Plan: 1. Onychomycosis 2. Diabetic neuropathy 3. History of Charcot foot reconstruction, right foot Imaging -none obtained this visit Patient was seen and examined Clinical findings discussed, questions and concerns addressed to patient's satisfaction Patient has fungal toenails x 10 that are elongated, thickened, dystrophic and mycotic that requiremedical debridement using podiatric nail nippers. Toenails were debrided accordingly to appropriatelength and thickness. Patient expressed pain relief for the procedure. Nail debridement medically necessary consistent with Q8 modifier Continue moisturizing feet and flossing between toes, feet are in much better repair than before Continue doing daily foot checks, wear supportive shoes and bilateral foot brace/AFO Follow-up in the office in about 3 months for nail care BP 115/65 (BP Location: Left arm, Patient Position: Sitting, BP Cuff Size: Adult) Pulse 74 Temp98.1 F (36.7 C) (Temporal) The following portions of the patient's history were reviewed and updated as appropriate: allergies, current medications, family history, past medical history, past social history and surgical history. Past Medical History: Diagnosis Date Acquired equinus deformity of right foot Acquired hammer toe of right foot Angina pectoris with documented spasm (HCC) Calluse Cellulitis of left toe Charcot's joint, right ankle and foot Chronic osteomyelitis with draining sinus, right ankle and foot (HCC) Complication of external fixation device with internal components (HCC) Coronary artery disease Dehiscence of incision Diabetes mellitus, type 2 (HCC) Dystrophic nail Edema Effusion of ankle and foot joint Fracture of metatarsal, closed Fungal toenail infection Hyperlipidemia Hypertension Hypothyroidism 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) Non-pressure chronic ulcer of other part of left foot limited to breakdown of skin (HCC) Non-pressure chronic ulcer of other part of right foot with fat layer exposed (HCC) limited to breakdown of skin Obesity Overflow incontinence Peripheral neuropathy Pressure ulcer of right foot, stage 2 (HCC) S/P foot surgery, right 12/09/2019 11/20/2019Right foot reconstruction surgery with external fixation 12/02/2019 Right foot I and D Sleep apnea, obstructive does not use CPAP Tibia/fibula fracture Past Surgical History: Procedure Laterality Date APPENDECTOMY ARTHRODESIS SUBTALAR Right 05/01/2020 Procedure: RIGHT ANKLE ARTHRODESIS, SUBTALAR ARTHRODESIS RIGHT ANKLE, Bone [place] Graft From RightFibula, Application of Splint; Surgeon: Alena Mora DPM; [facility]: [facility]; Service: Podiatry ARTHROPLASTY TOE Right 01/25/2019 Procedure: ARTHROPLASTY 2ND TOE RIGHT FOOT; Surgeon: Rosa M Robles DPM; Location: [facility] [place] OR; Service: Podiatry CABG 2017 CARDIAC SURGERY 2017 CABG tripe bypass CLOSED REDUCTION PERCUTANEOUS PINNING LOWER EXTREMITY N/A 12/02/2019 Procedure: ADJUSTMENT of EXTERNAL FIXATOR; Surgeon: Alena Mora DPM; [facility]: [facility]; Service: Podiatry CYST REMOVED FROM CHEST N/A INCISION AND DRAINAGE FOOT AND ANKLE Right 12/02/2019 Procedure: RIGHT FOOT I&D; Surgeon: Alena Mora DPM; Location: [facility]; Service: Podiatry LIPOSUCTION METAL IN LEFT LEFT WRIST AND LEFT 5TH TOE Left ORIF FOOT FRACTURE Left 07/03/2013 5th metatarsal ORTHOPEDIC SURGERY RECONSTRUCTION FOOT CHARCOT Right 11/20/2019 Procedure: RIGHT FOOT RECONSTRUCTION WITH APPLICATION OF CIRCULAR STATIC EXTERNAL FIXATION; Surgeon: Alena Mora DPM; Location: [facility] OR; Service: Podiatry RT FOOT SURGERY Right [place]UM[place] N/A No Known Allergies For any new medications prescribed today, patient was educated about indications for the medication, how to take the medication and potential side effects of the medications. This note was partially created using voice recognition software and is inherently subject to errors including those of syntax and sound-alike substitutions which may escape proofreading. In such instances, original meaning may be extrapolated by contextual derivation. Electronically signed by Cristiane Avendano CNP 06/21/2310:28 AM documented in this [id number] NotePatient Name: Dyllan Huertas Procedure Date: 01/06/2023 9:27 AM Date of : 1960 Admit Type: Outpatient Site: [facility] Ethnicity: Not or Race: White Attending MD: Michelle Beaulieu DO, [id number] Procedure: Colonoscopy Indications: Screening for colorectal malignant neoplasm Providers: Michelle Beaulieu DO (Doctor), Anette Daniels RN (Nurse), Nina Andre RN (Nurse), Derek Prado RN (Nurse) Referring: Rohit Aguilar MD Medicines: Midazolam 2.5 mg IV, Meperidine 50 mg IV, Glucagon 1 mg IV Complications: No immediate complications. Procedure: Pre-Anesthesia Assessment: - Prior to the procedure, a History and Physical was performed, and patient medications and allergies were reviewed. The patient is competent. The risks and benefits of the procedure and the sedation options and risks were discussed with the patient. All questions were answered and informed consent was obtained. Patient identification and proposed procedure were verified by the physician in the pre-procedure area. Mental Status Examination: alert and oriented. Airway Examination: normal oropharyngeal airway and neck mobility. Respiratory Examination: clear to auscultation. CV Examination: normal. Prophylactic Antibiotics: The patient does not require prophylactic antibiotics. Prior Anticoagulants: The patient has taken no anticoagulant or antiplatelet agents. ASA Grade Assessment: II - A patient with mild systemic disease. After reviewing the risks and benefits, the patient was deemed in satisfactory condition to undergo the procedure. The anesthesia plan was to use moderate sedation / analgesia (conscious sedation). Immediately prior to administration of medications, the patient was re-assessed for adequacy to receive sedatives. The heart rate, respiratory rate, oxygen saturations, blood pressure, adequacy of pulmonary ventilation, and response to care were monitored throughout the procedure. The physical status of the patient was re-assessed after the procedure. After I obtained informed consent, the scope was passed under direct vision. Throughout the procedure, the patient's blood pressure, pulse, and oxygen saturations were monitored continuously. The adult colonoscope was introduced through the anus and advanced to the transverse colon. No anatomical landmarks were photographed. The colonoscopy was performed without difficulty. The patient tolerated the procedure well. The quality of the bowel preparation was unsatisfactory. Findings: The perianal and digital rectal examinations were normal. Pertinent negatives include normal sphincter tone. Extensive amounts of stool was found in the rectum, in the sigmoid colon, in the descending colon and at the splenic flexure, precluding visualization. Lavage of the area was performed using a moderate amount of sterile water, resulting in incomplete clearance with continued poor visualization. Moderate Sedation: Moderate (conscious) sedation was administered by the nurse and supervised by the endoscopist. The following parameters were monitored: oxygen saturation, heart rate, blood pressure, and response to care. Total physician intraservice time was 18 minutes. Estimated Blood Loss: Estimated blood loss: none. Impression: - Preparation of the colon was unsatisfactory. - Stool in the rectum, in the sigmoid colon, in the descending colon and at the splenic flexure. - No specimens collected. Recommendation: - Patient has a contact number available for emergencies. The signs and symptoms of potential delayed complications were discussed with the patient. Return to normal activities tomorrow. Written discharge (more content not included)...PROVATION - [id number] NotePatient Name: Dyllan Huertas Procedure Date: 02/24/2023 11:14 AM Date of : 1960 Admit Type: Outpatient Site: [place] [address] Ethnicity: Not or Race: White Attending MD: Michelle Beaulieu DO, [id number] Procedure: Colonoscopy Indications: Screening for colorectal malignant neoplasm Providers: Michelle Beaulieu DO (Doctor), Anette Daniels RN (Nurse), Jose Wise, Fingerprint Expert Referring: Rohit Aguilar MD Medicines: Midazolam 2.5 mg IV, Meperidine 50 mg IV, Glucagon 1 mg IV Complications: No immediate complications. Procedure: Pre-Anesthesia Assessment: - Prior to the procedure, a History and Physical was performed, and patient medications and allergies were reviewed. The patient is competent. The risks and benefits of the procedure and the sedation options and risks were discussed with the patient. All questions were answered and informed consent was obtained. Patient identification and proposed procedure were verified by the physician in the pre-procedure area. Mental Status Examination: alert and oriented. Airway Examination: normal oropharyngeal airway and neck mobility. Respiratory Examination: clear to auscultation. CV Examination: normal. Prophylactic Antibiotics: The patient does not require prophylactic antibiotics. Prior Anticoagulants: The patient has taken no anticoagulant or antiplatelet agents. ASA Grade Assessment: II - A patient with mild systemic disease. After reviewing the risks and benefits, the patient was deemed in satisfactory condition to undergo the procedure. The anesthesia plan was to use moderate sedation / analgesia (conscious sedation). Immediately prior to administration of medications, the patient was re-assessed for adequacy to receive sedatives. The heart rate, respiratory rate, oxygen saturations, blood pressure, adequacy of pulmonary ventilation, and response to care were monitored throughout the procedure. The physical status of the patient was re-assessed after the procedure. After I obtained informed consent, the scope was passed under direct vision. Throughout the procedure, the patient's blood pressure, pulse, and oxygen saturations were monitored continuously. The pediatric colonoscope was introduced through the anus and advanced to the cecum, identified by appendiceal orifice and ileocecal valve. The colonoscopy was performed without difficulty. The patient tolerated the procedure well. The quality of the bowel preparation was good. The ileocecal valve, appendiceal orifice, and rectum were photographed. Findings: The perianal and digital rectal examinations were normal. Pertinent negatives include normal sphincter tone and no palpable rectal lesions. A 4 mm polyp was found in the mid transverse colon. The polyp was semi-pedunculated. The polyp was removed with a cold snare. Resection and retrieval were complete. To prevent bleeding post-intervention, one hemostatic clip was successfully placed (MR conditional). 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 There was no bleeding at the end of the procedure. No additional abnormalities were found on retroflexion. Moderate Sedation: Moderate (conscious) sedation was administered by the nurse and supervised by the endoscopist. The following parameters were monitored: oxygen saturation, heart rate, blood pressure, and response to care. Total physician intraservice time was 21 minutes. Estimated Blood Loss: Estimated blood loss: none. Impression: - One 4 mm polyp in the mid transverse colon, removed with a cold snare. Resected and retrieved. Clip (MR conditional) was placed. 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 Recommendation: - Patient has a contact number available for emergencies. The signs an (more content not included)...PROVATION - [id number] History of Present illness Narrative* Torie Avendano CNP - 12/14/2022 5:02 PM EDT Podiatry Office Visit Subjective: Dyllan Huertas is a pleasant 62 y.o. male presenting to podiatry office for diabetic nail care.Patient had some toe ulcers recently but these have all resolved. He does report elongated, thickened, dystrophic, mycotic toenails that cause him pain. Most recent hemoglobin A1c 6.4. Denies any recent injury or trauma. He does have a left lateral ankle brace that he wears routinely. He is asking for new diabetic shoes. No other pedal complaints. Podiatric exam: Vascular: DP and PT pulses are palpable but diminished. Capillary refill time is less than 3 seconds to distal digits. Skin temperature is warm to warm from proximal tibial tuberosity to distal digit. Diffuse nonpitting lower extremity edema Neurological: Gross sensation is diminished. Protective sensation is minimal. Babinski's is normal. Dermatologic: Bilateral lower extremities with intact integument, no sores or wounds or ulcers. Interdigital spaces dry with some debris. Nails 1-10 elongated, thickened, dystrophic, mycotic with some subungual debris Musculoskeletal: No motion across the ankle joint on the right foot status post IM nail fusion of the ankle and subtalar joints, right. Ankle joint range of motion is intact to the left foot. Compartments soft and compressible. No calf pain. Medial talar prominence noted to the left foot. Collapse of the medial longitudinal arch, left foot Review of systems unremarkable, unless otherwise noted. Alert, oriented, cooperative with appropriate thought process. Assessment/Plan: 1. Onychomycosis 2. Diabetic neuropathy Imaging -none obtained this visit Patient was seen and examined Clinical findings discussed, questions and concerns addressed to patient's satisfaction Patient has fungal toenails x 10 that are elongated, thickened, dystrophic and mycotic that requiremedical debridement using podiatric nail nippers. Toenails were debrided accordingly to appropriatelength and thickness. Patient expressed pain relief for the procedure. Nail debridement medically necessary consistent with Q8 modifier Discussed with patient to apply Vicks VapoRub to thickened toenails and Aquaphor or Vaseline to dryness and cracks on his feet Prescription given for 1 pair of diabetic shoes Encouraged to continue doing frequent foot checks Follow-up in the office in about 3 months for nail care BP (!) 102/58 (BP Location: Right arm, Patient Position: Sitting, BP Cuff Size: Adult) Pulse 82 Temp 98.5 F (36.9 C) (Infrared) The following portions of the patient's history were reviewed and updated as appropriate: allergies, current medications, family history, past medical history, past social history and surgical history. Past Medical History: Diagnosis Date Acquired equinus deformity of right foot Acquired hammer toe of right foot Angina pectoris with documented spasm ([facility]) Calluse Cellulitis of left toe Charcot's joint, right ankle and foot Chronic osteomyelitis with draining sinus, right ankle and foot ([facility]) Complication of external fixation device with internal components ([facility]) Coronary artery disease Dehiscence of incision Diabetes mellitus, type 2 ([facility]) Dystrophic nail Edema Effusion of ankle and foot joint Fracture of metatarsal, closed Fungal toenail infection Hyperlipidemia Hypertension Hypothyroidism 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 ([facility]) Non-pressure chronic ulcer of other part of left foot limited to breakdown of skin ([facility]) Non-pressure chronic ulcer of other part of right foot with fat layer exposed ([facility]) limited to breakdown of skin Obesity Overflow incontinence Peripheral neuropathy Pressure ulcer of right foot, stage 2 ([facility]) S/P foot surgery, right 12/09/2019 11/20/2019Right foot reconstruction surgery with external fixation 12/02/2019 Right foot I and D Sleep apnea, obstructive does not use CPAP Tibia/fibula fracture Past Surgical History: Procedure Laterality Date APPENDECTOMY ARTHRODESIS SUBTALAR Right 05/01/2020 Procedure: RIGHT ANKLE ARTHRODESIS, SUBTALAR ARTHRODESIS RIGHT ANKLE, Bone [place] Graft From RightFibula, Application of Splint; Surgeon: Alena Mora DPM; Location: [facility]; Service: Podiatry ARTHROPLASTY TOE Right 01/25/2019 Procedure: ARTHROPLASTY 2ND TOE RIGHT FOOT; Surgeon: Rosa M Robles DPM; Location[facility]; Service: Podiatry CABG 2017 CARDIAC SURGERY 2017 CABG tripe bypass CLOSED REDUCTION PERCUTANEOUS PINNING LOWER EXTREMITY N/A 12/02/2019 Procedure: ADJUSTMENT of EXTERNAL FIXATOR; Surgeon: Alena Mora DPM; Location: [facility]; Service: Podiatry CYST REMOVED FROM CHEST N/A INCISION AND DRAINAGE FOOT AND ANKLE Right 12/02/2019 Procedure: RIGHT FOOT I&D; Surgeon: Alena Mora DPM; Location: [facility]; Service: Podiatry LIPOSUCTION METAL IN LEFT LEFT WRIST AND LEFT 5TH TOE Left ORIF FOOT FRACTURE Left 07/03/2013 5th metatarsal ORTHOPEDIC SURGERY RECONSTRUCTION FOOT CHARCOT Right 11/20/2019 Procedure: RIGHT FOOT RECONSTRUCTION WITH APPLICATION OF CIRCULAR STATIC EXTERNAL FIXATION; Surgeon: Alena Mora DPM; [facility]; Service: Podiatry RT FOOT SURGERY Right SHARMILA JEONG N/A No Known Allergies For any new medications prescribed today, patient was educated about indications for the medication, how to take the medication and potential side effects of the medications. This note was partially created using voice recognition software and is inherently subject to errors including those of syntax and sound-alike substitutions which may escape proofreading. In such instances, original meaning may be extrapolated by contextual derivation. Electronically signed by Cristiane Avendano CNP 235:02 PM documented in this [id number] History of Present illness Narrative* Torie Avendano CNP - 09/14/2022 9:48 AM EST Established Patient Visit Torie Avendano CNP Patient Name: Dyllan Huertas. . Date of : 1960, 61 y.o.. Gender: male. Subjective: Patient is a pleasant 61-year-old male who presents to clinic for at-risk nail care. He denies any sores or wounds or ulcers, no trauma or injury. He does report some pain to multiple nail plates from thickened, elongated, dystrophic nails. He is unable to trim these himself. Most recent [id number] was 7.1. He follows regularly with his PCP for diabetic care. Patient reports frequent foot checks with the mirror. He also examines the right foot brace to make sure it is intact. No other pedalcomplaints at this time. Denies fevers, chills, nausea, vomiting, chest pain, shortness of breath, or any other constitutional symptoms. Physical Examination: BP 103/65 (BP Location: Right arm, Patient Position: Sitting, BP Cuff Size: X- large Adult) Pulse 80 Temp 98.1 F (36.7 C) (Infrared) General Appearance: Alert, cooperative, no distress, appears stated age. Podiatric Exam Vascular: DP and PT pulses are palpable 2/4. Capillary refill time is brisk to distal digits. Skin temperature is warm to warm from proximal tibial tuberosity to distal digit. Moderate +2 pitting edema noted to bilateral lower extremity. Areas of vascular discoloration to bilateral lower extremities. Neurological: Gross sensation is intact. Protective sensation is diminished. Dermatologic: Bilateral feet with intact integument, no sores or wounds or ulcers. Interdigital spaces are dry and flaky but intact. Nails 1 through 10 elongated, thickened, dystrophic and mycotic. Patient has previous history of complete nail avulsion of bilateral great toenails, however he does have residual nail growing on both nail beds that are dystrophic, mycotic, crumbly. Musculoskeletal: No motion across the ankle joint on the right foot status post IM nail fusion of the ankle and subtalar joints, right. Ankle joint range of motion is intact to the left foot.Compartments soft and compressible. No calf pain. Medial talar prominence noted to the left foot. Collapse of the medial longitudinal arch, left foot. Nail plates painful to palpation. Assessment: 1. Onychomycosis 2. Charcot foot due to diabetes mellitus (HCC) 3. Diabetes mellitus with peripheral neuropathy Plan: Patient was seen and evaluated. Discussed all clinical findings, questions and concerns addressed to his satisfaction Patient is doing very well at this time. Patient has fungal toenails x 5 (left 12, right 125) that are elongated, thickened, dystrophic and mycotic that require medical debridement using podiatric nail nippers. Remaining toenails are thickened, elongated, dystrophic. Toenails were debrided accordingly to appropriate length and thickness. Patient expressed pain relief for the procedure. Patient qualifies for nail care due to at risk foot criteria based on Q9 Modifier secondary to diabetic peripheral neuropathy and history of ulcerations. Patient was educated on fungal toenails and conservative options including debridement, prescription nail lacquers and/or oral medications. Patient opted for debridement of the toenails. She/he is not interested in application of any nail lacquers or taking any oral medications. Patient may use Chaparro's vaporub to fungal nails to help thin out thick keratotic layers Continue blood sugar control, continue using supportive shoes. Patient wears custom shoes for Charcot deformity of bilateral feet Continue daily foot checks Follow-up in the office in about 3 months for at risk nail care documented in this [id number] History of Present illness Narrative* Torie Avendano CNP - 06/11/2022 9:39 AM EDT Established Patient Visit Torie Avendano CNP Patient Name: Dyllan Huertas. . Date of : 1960, 61 y.o.. Gender: male. Subjective: Patient is a pleasant 61-year-old male who presents to clinic for at-risk nail care. Patient stateshe has been doing well, right foot Charcot reconstruction is stable at this time. He denies any sores or wounds or ulcers, no trauma or injury. He does report some pain to multiple nail plates from thickened, elongated, dystrophic nails. He is unable to trim these himself. Most recent hemoglobin A1c was 6.4 checked 7 months ago. He states he uses Eucerin to moisturize his feet but is currently out of it, hence the dryness noted to his toes and webspaces. No other pedal complaints at this time. Denies fevers, chills, nausea, vomiting, chest pain, shortness of breath, or any other constitutional symptoms. Physical Examination: BP 123/66 (BP Location: Right arm, Patient Position: Sitting, BP Cuff Size: Adult) Pulse 69 Temp 97.2 F (36.2 C) (Temporal) General Appearance: Alert, cooperative, no distress, appears stated age. Podiatric Exam Vascular: DP and PT pulses are palpable 2/4. Capillary refill time is brisk to distal digits. Skin temperature is warm to warm from proximal tibial tuberosity to distal digit. Moderate +2 pitting edema noted to bilateral lower extremity. Neurological: Gross sensation is intact. Protective sensation is diminished. Dermatologic: Bilateral feet with intact integument, no sores or wounds or ulcers. Interdigital spaces are dry and flaky but intact. Nails 1 through 10 elongated, thickened, dystrophic and mycotic Musculoskeletal: No motion across the ankle joint on the right foot status post IM nail fusion of the ankle and subtalar joints, right. Ankle joint range of motion is intact to the left foot.Compartments soft and compressible. No calf pain. Medial talar prominence noted to the left foot. Collapse of the medial longitudinal arch, left foot. Nail plates painful to palpation. Assessment: 1. Onychomycosis 2. Diabetes mellitus 3. Charcot deformity Plan: Patient was seen and evaluated. Discussed all clinical findings, questions and concerns addressed to his satisfaction Patient is doing very well at this time. Patient has fungal toenails x 10 that are elongated, thickened, dystrophic and mycotic that requiremedical debridement using podiatric nail nippers. Toenails were debrided accordingly to appropriatelength and thickness. Patient expressed pain relief for the procedure. Continue blood sugar control, continue using supportive shoes. Patient wears custom shoes for Charcot deformity of bilateral feet Continue daily foot checks Follow-up in the office in 3 months for at risk nail care documented in this [id number] History of Present illness NarrativePatient is here for yearly f/u. Most recent PSA was 0.072 (05/25). Prior PSA was 0.04 on 03/24..Previous PSA was 0.06 on 04/21..hx of urinary retention and does know how to CIC but has not had to do....Denies frequency and urgency..Denies dysuria..Denies hematuria.. Patient is on flomax and proscar.. P atient is on proscar for hair loss, and he takes 1/3 of 5mg pill qmwf..ED is chronic. He has medication if needed . Energy level is frpjOJ-Vqxzovg-Jnlisqy Work Phone: [phone] History of Present illness Narrative* Alena Mora DPM - 04/01/2022 10:56 AM EDT Images from the original note were not included. Established Patient Visit Alena Mora DPM Patient Name: Dyllan Huertas. . Date of : 1960, 61 y.o.. Gender: male. Subjective: Patient is a pleasant 61-year-old male who presents to clinic for his for follow-up on bilateral leg wounds. Patient's wounds have improved and healed with exception of a new one on his right leg. Reports that he had scraped his right leg. No other pedal complaints at this time. Denies fevers, chills, nausea, vomiting, chest pain, shortness of breath, or any other constitutional symptoms. Physical Examination: BP (!) 102/49 (BP Location: Right arm, Patient Position: Sitting, BP Cuff Size: Adult) Pulse (!) 59 Temp 97 F (36.1 C) (Temporal) General Appearance: Alert, cooperative, no distress, appears stated age. Podiatric Exam Vascular: DP and PT pulses are palpable 2/4. Capillary refill time is brisk to distal digits. Skin temperature is warm to warm from proximal tibial tuberosity to distal digit. Moderate +2 pitting edema noted to bilateral lower extremity. Neurological: Gross sensation is intact. Protective sensation is diminished. Dermatologic: Small skin tear noted to the posterior medial right leg without any surrounding erythema, edema or any acute signs of infection. Musculoskeletal: No motion across the ankle joint on the right foot status post IM nail fusion of the ankle and subtalar joints, right. Ankle joint range of motion is intact to the left foot.Compartments soft and compressible. No calf pain. Medial talar prominence noted to the left foot. Collapse of the medial longitudinal arch, left foot. Assessment: 1. Skin ulcer of right lower leg, limited to breakdown of skin (HCC) Plan: Patient was seen and evaluated. Discussed all clinical findings Patient is doing very well at this time. A small skin tear noted to the right leg but is not concerning for infection. Apply Kb to the right leg wound. Patient may change it 1 time while at home in 2 days. All questions were answered to patient satisfaction. Patient understands to call with any questionsor concerns. Follow-up in approximately 10 months for at risk diabetic foot care. Alena Mora DPM, MS Podiatric Physician & Surgeon documented in this [id number] History of Present illness Narrative* Alena Mora DPM - 03/15/2022 8:04 AM EDT Images from the original note were not included. Established Patient Visit Alena Mora DPM Patient Name: Dyllan Huertas. . Date of : 1960, 61 y.o.. Gender: male. Subjective: Patient is a pleasant 61-year-old male who presents to clinic for his scheduled at risk foot care appointment. Patient states that he has wounds on his bilateral shins from stacking wood. He has beenapplying Medihoney daily and covering them with gauze. Patient is unaware of a new hemoglobin A1c. An update is to be expected in April 2022. No other pedal complaints at this time. Denies fevers, chills, nausea, vomiting, chest pain, shortness of breath, or any other constitutional symptoms. Physical Examination: BP 138/87 Pulse 72 Temp 97.3 F (36.3 C) (Temporal) General Appearance: Alert, cooperative, no distress, appears stated age. Podiatric Exam Vascular: DP and PT pulses are palpable 2/4. Capillary refill time is brisk to distal digits. Skin temperature is warm to warm from proximal tibial tuberosity to distal digit. Moderate +2 pitting edema noted to bilateral lower extremity. Neurological: Gross sensation is intact. Protective sensation is diminished. Dermatologic: Nails 1-10 are elongated, thickened, dystrophic, and mycotic. No open wounds or ulcerations. No acute signs of infection. Full-thickness ulcerations noted to the anterior right and leftlegs measuring approximately 1.0 x 1.0 x 0.2 cm. Musculoskeletal: No motion across the ankle joint on the right foot status post IM nail fusion of the ankle and subtalar joints, right. Ankle joint range of motion is intact to the left foot.Compartments soft and compressible. No calf pain. Medial talar prominence noted to the left foot. Collapse of the medial longitudinal arch, left foot. Assessment: 1. Skin ulcer of right lower leg with fat layer exposed (HCC) 2. Skin ulcer of left lower leg with fat layer exposed (HCC) 3. Onychomycosis 4. Diabetic peripheral neuropathy (HCC) Plan: Patient was seen and evaluated. Discussed all clinical findings Patient has full-thickness ulcerations on the right and left legs that require excisional debridement to remove nonviable soft tissue and biofilm. This was performed using a #15 blade down to and including subcutaneous tissue. Post debridement measurements as noted above. No anesthesia secondary toneuropathy. Hemostasis achieved with compression. Following debridement, applied Kb, 4 x 4, Kerlix and Zechariah bandages. Patient has onychomycosis of nails x 10 which require mechanical debridement. Consent was obtained prior to debridement of all toenails on the right and left foot using podiatric nail nippers down to appropriate thickness and length. Patient expressed pain relief following theprocedure. Patient qualifies for nail care due to at risk foot criteria based on Q9 Modifier secondary to diabetic peripheral neuropathy and history of ulceration due to Charcot, right foot. Emphasized importance of wearing compression dressing to bilateral legs for edema control. All questions were answered to patient satisfaction. Patient understands to call with any questionsor concerns. Follow-up in 2-3 weeks for evaluation of leg wounds. Alena Mora DPM, MS Podiatric Physician & Surgeon documented in this [id number] History of Present illness Narrative* Alena Mora DPM - 11/12/2021 10:23 AM EST Images from the original note were not included. Established Patient Visit Alena Mora DPM Patient Name: Dyllan Huertas. . Date of : 1960, 61 y.o.. Gender: male. Subjective: Patient is a pleasant 61-year-old male who presents to clinic for his yearly comprehensive foot examination. Patient states that he developed a blister on the back of his right leg which resolving after putting medihoney on it. Patient states that all his previous wounds have remained closed. He has resumed wearing his good supportive shoes and bracing without any problems. No other pedal complaints at this time. Denies fevers, chills, nausea, vomiting, chest pain, shortness of breath, or any other constitutional symptoms. Physical Examination: BP (!) 89/56 (BP Location: Right arm, Patient Position: Sitting, BP Cuff Size: Adult) Pulse 65 Temp 98.1 F (36.7 C) (Temporal) General Appearance: Alert, cooperative, no distress, appears stated age. Podiatric Exam Vascular: DP and PT pulses are palpable 2/4. Capillary refill time is brisk to distal digits. Skin temperature is warm to warm from proximal tibial tuberosity to distal digit. Moderate +2 pitting edema noted to bilateral lower extremity. Neurological: Gross sensation is intact. Protective sensation is intact. Dermatologic: Nails 1-10 are elongated, thickened, dystrophic, and mycotic. No open wounds or ulcerations. No acute signs of infection. Musculoskeletal: No motion across the ankle joint on the right foot status post IM nail fusion of the ankle and subtalar joints, right. Ankle joint range of motion is intact to the left foot.Compartments soft and compressible. No calf pain. Medial talar prominence noted to the left foot. Collapse of the medial longitudinal arch, left foot. Assessment: 1. Onychomycosis 2. Diabetic peripheral neuropathy (HCC) Plan: Patient was seen and evaluated. Discussed all clinical findings A comprehensive diabetic foot examination was performed. Patient is doing well and has no open wounds. No signs of infection. Reviewed patient's hemoglobin A1c noted to be 6.1% on 04/25/2021. Patient is to continue to follow-up with his primary care physician every 6 months. Patient was instructed to check his feet once daily and to wear good supportive shoes. Patient has onychomycosis of nails x 10 which require mechanical debridement. Consent was obtained prior to debridement of all toenails on the right and left foot using podiatric nail nippers down to appropriate thickness and length. Patient expressed pain relief following theprocedure. Patient qualifies for nail care due to at risk foot criteria based on Q9 Modifier secondary to diabetic peripheral neuropathy and history of ulceration due to Charcot, right foot. Emphasized importance of wearing compression dressing to bilateral legs for edema control. All questions were answered to patient satisfaction. Patient understands to call with any questionsor concerns. Follow-up in 3 months for at risk foot care. Alena Mora DPM, MS Podiatric Physician & Surgeon documented in this [id number] History of Present illness Narrative* Aelna Mora DPM - 10/09/2021 11:49 AM EST Images from the original note were not included. Established Patient Visit Alena Mora DPM Patient Name: Dyllan Huertas. . Date of : 1960, 60 y.o.. Gender: male. Subjective: Patient is a pleasant 60-year-old male who presents to clinic for his for follow-up of his left legand foot wound. Patient states that all his wounds have remained closed. He has resumed wearing hisgood supportive shoes and bracing without any problems. No other pedal complaints at this time. Denies fevers, chills, nausea, vomiting, chest pain, shortness of breath, or any other constitutional symptoms. Physical Examination: BP (!) 107/57 (BP Location: Right arm, Patient Position: Sitting, BP Cuff Size: Adult) Pulse 73 Temp 97.7 F (36.5 C) (Other (Comment)) General Appearance: Alert, cooperative, no distress, appears stated age. Podiatric Exam Vascular: DP and PT pulses are palpable 2/4. Capillary refill time is brisk to distal digits. Skin temperature is warm to warm from proximal tibial tuberosity to distal digit. Neurological: Gross sensation is intact. Protective sensation is intact. Dermatologic: The previously noted full-thickness ulcerations to the left leg and foot have now resolved. No open wounds or ulcerations. No acute signs of infection. Musculoskeletal: No motion across the ankle joint on the right foot status post IM nail fusion of the ankle and subtalar joints. Ankle joint range of motion is intact to the left foot.Compartments soft and compressible. No calf pain. Medial talar prominence noted to the left foot. Collapse of the medial longitudinal arch, left foot. Assessment: 1. Ulcer of left foot with fat layer exposed (HCC) 2. Diabetic peripheral neuropathy (HCC) Plan: Patient was seen and evaluated. Discussed all clinical findings All of patient's left leg and foot wounds have remained closed. No acute signs infection. Patient is to maintain compression to bilateral lower extremities. Patient is to follow-up in 1 month to comprehensive diabetic foot examination and at risk nail care. Alena Mora DPM, MS Podiatric Physician & Surgeon documented in this [id number] History of Present illness Narrative* Alena Mora DPM - 10/03/2021 6:57 PM EST Images from the original note were not included. Established Patient Visit Alena Mora DPM Patient Name: Dyllan Huertas. . Date of : 1960, 60 y.o.. Gender: male. Subjective: Patient is a pleasant 60-year-old male who presents to clinic for his for follow-up of his left legwound. He has been applying Kb every other day as instructed. States much improvement. No otherpedal complaints at this time. Denies fevers, chills, nausea, vomiting, chest pain, shortness of breath, or any other constitutional symptoms. Physical Examination: BP 121/71 (BP Location: Left arm, Patient Position: Sitting, BP Cuff Size: Adult) Pulse 76 Temp97.8 F (36.6 C) (Oral) General Appearance: Alert, cooperative, no distress, appears stated age. Podiatric Exam Vascular: DP and PT pulses are palpable 2/4. Capillary refill time is brisk to distal digits. Skin temperature is warm to warm from proximal tibial tuberosity to distal digit. Neurological: Gross sensation is intact. Protective sensation is intact. Dermatologic: The previously noted blister/wound on his medial left foot has resolved. No surrounding erythema, edema or any acute signs of infection. Full- thickness ulcer noted to the medial left leg previously measuring 0.5 x 0.3 x0.2 cm has improved in size and is significantly smaller smaller. Wound does not probe to bone. No surrounding erythema, edema or any acute signs of infection. Musculoskeletal: No motion across the ankle joint on the right foot status post IM nail fusion of the ankle and subtalar joints. Ankle joint range of motion is intact to the left foot.Compartments soft and compressible. No calf pain Assessment: 1. Ulcer of left foot with fat layer exposed (HCC) 2. Chronic ulcer of left leg with fat layer exposed (HCC) 3. Diabetic peripheral neuropathy (HCC) Plan: Patient was seen and evaluated. Discussed all clinical findings. Patient's left leg wound has significantly improved. No debridement necessary today. Applied Kb, 4 x 4, Kerlix and Zechariah bandage from toes to knee. Patient is to continue dressing changes intact for 3 days and then to begin wearing compression socks. Follow-up in 4 weeks for evaluation. Alena Mora DPM, MS Podiatric Physician & Surgeon documented in this [id number] History of Present illness Narrative* Alena Mora DPM - 09/11/2021 6:55 PM EST Images from the original note were not included. Established Patient Visit Alena Mora DPM Patient Name: Dyllan Huertas. . Date of : 1960, 60 y.o.. Gender: male. Subjective: Patient is a pleasant 60-year-old male who presents to clinic for his for follow-up of his left foot and leg wounds. He has been applying Kb every other day as instructed. States much improvement. No other pedal complaints at this time. Denies fevers, chills, nausea, vomiting, chest pain, shortness of breath, or any other constitutional symptoms. Physical Examination: BP 121/71 (BP Location: Left arm, Patient Position: Sitting, BP Cuff Size: Adult) Pulse 76 Temp97.8 F (36.6 C) (Oral) General Appearance: Alert, cooperative, no distress, appears stated age. Podiatric Exam Vascular: DP and PT pulses are palpable 2/4. Capillary refill time is brisk to distal digits. Skin temperature is warm to warm from proximal tibial tuberosity to distal digit. Neurological: Gross sensation is intact. Protective sensation is intact. Dermatologic: The previously noted blister/wound on his medial left foot has resolved. No surrounding erythema, edema or any acute signs of infection. Full- thickness ulcer noted to the medial left leg measuring 0.5 x 0.3x0.1 cm. Wound does not probe to bone. No surrounding erythema, edema or any acute signs of infection. Musculoskeletal: No motion across the ankle joint on the right foot status post IM nail fusion of the ankle and subtalar joints. Ankle joint range of motion is intact to the left foot.Compartments soft and compressible. No calf pain Assessment: 1. Ulcer of left foot with fat layer exposed (HCC) 2. Chronic ulcer of left leg with fat layer exposed (HCC) 3. Diabetic peripheral neuropathy (HCC) Plan: Patient was seen and evaluated. Discussed all clinical findings. Patient's left leg wound requires excisional debridement remove nonviable soft tissue and biofilm. Verbal consent was obtained prior to performing excisional debridement of the left leg wound down to and including subcutaneous tissue using a #15 blade. No anesthesia secondary to neuropathy. Hemostasis achieved with compression. Apply Kb, 4 x 4, Kerlix and Zechariah bandage from toes to knee. Patient is to continue dressing changes at home every other day. Follow-up in 1 week for evaluation. Alnea Mora DPM, MS Podiatric Physician & Surgeon documented in this [id number] History of Present illness Narrative* Alena Mora DPM - 09/11/2021 1:23 PM EST Images from the original note were not included. Established Patient Visit Alena Mora DPM Patient Name: Dyllan Huertas. . Date of : 1960, 60 y.o.. Gender: male. Subjective: Patient is a pleasant 60-year-old male who presents to clinic for his for follow-up of his left foot and leg wounds. He has been applying Kb every other day as instructed. States much improvement. No other pedal complaints at this time. Denies fevers, chills, nausea, vomiting, chest pain, shortness of breath, or any other constitutional symptoms. Physical Examination: BP 121/71 (BP Location: Left arm, Patient Position: Sitting, BP Cuff Size: Adult) Pulse 76 Temp97.8 F (36.6 C) (Oral) General Appearance: Alert, cooperative, no distress, appears stated age. Podiatric Exam Vascular: DP and PT pulses are palpable 2/4. Capillary refill time is brisk to distal digits. Skin temperature is warm to warm from proximal tibial tuberosity to distal digit. Neurological: Gross sensation is intact. Protective sensation is intact. Dermatologic: The previously noted blister/wound on his medial left foot has resolved. No surrounding erythema, edema or any acute signs of infection. Full- thickness ulcer noted to the medial left leg. Wound does not probe to bone. No surrounding erythema, edema or any acute signs of infection. Musculoskeletal: No motion across the ankle joint on the right foot status post IM nail fusion of the ankle and subtalar joints. Ankle joint range of motion is intact to the left foot.Compartments soft and compressible. No calf pain Assessment: 1. Ulcer of left foot with fat layer exposed (HCC) 2. Chronic ulcer of left leg with fat layer exposed (HCC) 3. Diabetic peripheral neuropathy (HCC) Plan: Patient was seen and evaluated. Discussed all clinical findings. Patient's left leg wound requires excisional debridement remove nonviable soft tissue and biofilm. Verbal consent was obtained prior to performing excisional debridement of the left leg wound down to and including subcutaneous tissue using a #15 blade. No anesthesia secondary to neuropathy. Hemostasis achieved with compression. Apply Kb, 4 x 4, Kerlix and Zechariah bandage from toes to knee. Patient is to continue dressing changes at home every other day. Follow-up in 1 week for evaluation. Alena Mora DPM, MS Podiatric Physician & Surgeon documented in this [id number] History of Present illness Narrative* Alena Mora DPM - 09/11/2021 1:23 PM EST Images from the original note were not included. Established Patient Visit Alena Mora DPM Patient Name: Dyllan Huertas. . Date of : 1960, 60 y.o.. Gender: male. Subjective: Patient is a pleasant 60-year-old male who presents to clinic for his for follow-up of his left foot and leg wounds. He has been applying Kb every other day as instructed. States much improvement. No other pedal complaints at this time. Denies fevers, chills, nausea, vomiting, chest pain, shortness of breath, or any other constitutional symptoms. Physical Examination: BP 121/71 (BP Location: Left arm, Patient Position: Sitting, BP Cuff Size: Adult) Pulse 76 Temp97.8 F (36.6 C) (Oral) General Appearance: Alert, cooperative, no distress, appears stated age. Podiatric Exam Vascular: DP and PT pulses are palpable 2/4. Capillary refill time is brisk to distal digits. Skin temperature is warm to warm from proximal tibial tuberosity to distal digit. Neurological: Gross sensation is intact. Protective sensation is intact. Dermatologic: The previously noted blister/wound on his medial left foot has resolved. No surrounding erythema, edema or any acute signs of infection. Full- thickness ulcer noted to the medial left leg measuring 1.0 x 0.5 x 0.2 cm. Wound does not probe to bone. No surrounding erythema, edema or any acute signs of infection. Musculoskeletal: No motion across the ankle joint on the right foot status post IM nail fusion of the ankle and subtalar joints. Ankle joint range of motion is intact to the left foot.Compartments soft and compressible. No calf pain Assessment: 1. Ulcer of left foot with fat layer exposed (HCC) 2. Chronic ulcer of left leg with fat layer exposed (HCC) 3. Diabetic peripheral neuropathy (HCC) Plan: Patient was seen and evaluated. Discussed all clinical findings. Patient's left leg wound requires excisional debridement remove nonviable soft tissue and biofilm. Verbal consent was obtained prior to performing excisional debridement of the left leg wound down to and including subcutaneous tissue using a #15 blade. No anesthesia secondary to neuropathy. Hemostasis achieved with compression. Apply Kb, 4 x 4, Kerlix and Zechariah bandage from toes to knee. Patient is to continue dressing changes at home every other day. Follow-up in 1 week for evaluation. Alena Mora DPM, MS Podiatric Physician & Surgeon documented in this [id number] History of Present illness Narrative* Alena Mora DPM - 09/10/2021 12:11 PM EST Images from the original note were not included. Established Patient Visit Alena Mora DPM Patient Name: Dyllan Huertas. . Date of : 1960, 60 y.o.. Gender: male. Subjective: Patient is a pleasant 60-year-old male who presents to clinic for his for follow-up of his left legblister/wound. He has been applying Kb every other day as instructed. States much improvement. No other pedal complaints at this time. Denies fevers, chills, nausea, vomiting, chest pain, shortness of breath, or any other constitutional symptoms. Physical Examination: BP 132/63 (BP Location: Left arm, Patient Position: Sitting, BP Cuff Size: Adult) Pulse 82 Temp97.2 F (36.2 C) (Temporal) General Appearance: Alert, cooperative, no distress, appears stated age. Podiatric Exam Vascular: DP and PT pulses are palpable 2/4. Capillary refill time is brisk to distal digits. Skin temperature is warm to warm from proximal tibial tuberosity to distal digit. Neurological: Gross sensation is intact. Protective sensation is intact. Dermatologic: Deep full-thickness ulceration on the medial left leg has now resolved. No surrounding erythema, edema or any acute signs of infection. Musculoskeletal: No motion across the ankle joint on the right foot status post IM nail fusion of the ankle and subtalar joints. Ankle joint range of motion is intact to the left foot.Compartments soft and compressible. No calf pain Assessment: 1. Ulcer of left foot with fat layer exposed (HCC) 2. Diabetic peripheral neuropathy (HCC) Plan: Patient was seen and evaluated. Discussed all clinical findings Patient's left leg wound has now resolved. No surrounding erythema, edema or any acute signs of infection. A double Tubigrip compression was applied to patient's left lower extremity. Patient is to maintain compression to bilateral lower extremities. Patient is to follow-up in 1 month to ensure no recurrence of any wounds. Alena Mora DPM, MS Podiatric Physician & Surgeon documented in this [id number] History of Present illness Narrative* Alenadeanna Metcalf ELIU Mora - 07/09/2021 9:11 AM EDT Images from the original note were not included. Established Patient Visit Alena Mora DPM Patient Name: Dyllan Huertas. . Date of : 1960, 60 y.o.. Gender: male. Subjective: Patient is a pleasant 60-year-old male who presents to clinic for his comprehensive diabetic foot examination. Patient is also here for elongated and thickened toenails that he has difficulty cuttingon his own. Additionally, patient does complain that he developed a blister on his left foot [place] Denies any trauma or injury. No other pedal complaints at this time. Denies fevers, chills, nausea, vomiting, chest pain, shortness of breath, or any other constitutional symptoms. Physical Examination: BP (!) 93/54 (BP Location: Right arm, Patient Position: Sitting, BP Cuff Size: Adult) Pulse 76 Temp 97.7 F (36.5 C) (Temporal) Ht 6' Wt 113.4 kg (250 lb) BMI 33.91 kg/m General Appearance: Alert, cooperative, no distress, appears stated age. Podiatric Exam Vascular: DP and PT pulses are palpable 2/4. Capillary refill time is brisk to distal digits. Skin temperature is warm to warm from proximal tibial tuberosity to distal digit. Neurological: Gross sensation is intact. Protective sensation is intact. Dermatologic: A fluid-filled blister is noted. Upon deroofing, serous fluid noted. No erythema, edema or any acute signs of infection Interdigital spaces are clean dry and intact. Nails 1 through 10 are elongated, thickened, dystrophic and mycotic with subungual debris. Musculoskeletal: No motion across the ankle joint on the right foot status post IM nail fusion of the ankle and subtalar joints. Ankle joint range of motion is intact to the left foot.Compartments soft and compressible. No calf pain Assessment: 1. Comprehensive diabetic foot examination, type 2 DM, encounter for ([facility]) 2. Diabetic peripheral neuropathy (HCC) 3. Onychomycosis 4. Blister of left foot, initial encounter 5. Ulcer of left foot with fat layer exposed (HCC) Plan: Patient was seen and evaluated. Discussed all clinical findings A comprehensive diabetic foot examination was performed. Patient is doing well and has no open wounds. No signs of infection. Reviewed patient's hemoglobin A1c noted to be 6.1% on 04/25/2021. Patient is to continue to follow-up with his primary care physician every 6 months. Patient was instructed to check his feet once daily and to wear good supportive shoes. Regarding his left foot blister, verbal consent was obtained prior to performing an incision and drainage of the blister site. A wound culture was obtained and will be sent to microbiology for culture sensitivity. Applied Kb and dry sterile dressing to the wound site. Patient is to change dressing every other day. He will discontinue use of the brace on the left foot until the wound heals. Patient has onychomycosis of nails x 101 which require mechanical debridement. Consent was obtained prior to debridement of all toenails on the right and left foot using podiatric nail nippers down to appropriate thickness and length. Patient qualifies for nail care due to at risk foot criteria based on Q9 Modifier secondary to diabetic peripheral neuropathy and history of ulcerations. All questions were answered to patient satisfaction. Patient understands to call with any questionsor concerns. Patient is to follow-up in 1 week for blister/wound evaluation. Alena Mora DPM, MS Podiatric Physician & Surgeon documented in this [id number] History of Present illness NarrativePatient here for 6mos w/PSA..Most recent PSA was 0.04 on 03/24..Previous PSA was 0.06 on 04/21..hx ofurinary retention and does know how to CIC and CIC when he needs to...Denies frequency and urgency..Denies dysuria..Denies hematuria.. Patient is on flomax and proscar.. Patient is on proscar for hair loss, and he takes 1/3 of 5mg pill qmwf..ED is chronic. He has medication if [id number] Work Phone: [phone] Evaluation note* Diagnosis Onset Date Resolution Status Essential (primary) hypertension chronic H/O coronary artery bypass surgery October 16, 2016 chronic Hyperlipidemia chronic Ischemic cardiomyopathy [facility] Work Phone: [phone]) [phone] Evaluation note* Diagnosis Onset Date Resolution Status Admit Date Bradycardia chronic March 19 8:47am Essential (primary) hypertension chronic March 19, 2025 8:47am H/O coronary artery bypass surgery October 16, 2016 chronic March 19 8:47am Hyperlipidemia chronic March 19, 2025 8:47am Ischemic cardiomyopathy chronic J 2024 8:47am 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 March 19, 2025 8:47am [facility] Work Phone: Evaluation note* Diagnosis Neuropathy Mononeuritis of unspecified site Effusion of ankle and foot joint Overflow [facility]ence [facility] Diagnosis Comprehensive diabetic foot examination, type 2 DM, encounter for (HCC) Diabetic peripheral neuropathy (HCC) Type II or unspecified type diabetes mellitus with neurological manifestations, not stated as uncontrolled Onychomycosis Dermatophytosis of nail Blister of left foot, initial encounter Ulcer of left foot with fat layer exposed (HCC) [facility] Diagnosis Comprehensive diabetic foot examination, type 2 DM, encounter for (HCC) Diabetic peripheral neuropathy (HCC) Type II or unspecified type diabetes mellitus with neurological manifestations, not stated as uncontrolled Onychomycosis Dermatophytosis of nail Blister of left foot, initial encounter Ulcer of left foot with fat layer exposed (HCC) [facility] Diagnosis Ulcer of left foot with fat layer exposed (HCC)- Primary Diabetic peripheral neuropathy (HCC) Type II or unspecified type diabetes mellitus with neurological manifestations, not stated as uncontrolled [facility] Diagnosis Ulcer of left foot with fat layer exposed (HCC)- Primary Chronic ulcer of left leg with fat layer exposed (HCC) Diabetic peripheral neuropathy (HCC) Type II or unspecified type diabetes mellitus with neurological manifestations, not stated as uncontrolled [facility] Diagnosis Chronic ulcer of left leg with fat layer exposed (HCC)- Primary Diabetic peripheral neuropathy (HCC) Type II or unspecified type diabetes mellitus with neurological manifestations, not stated as uncontrolled [facility] Diagnosis Chronic ulcer of left leg with fat layer exposed (HCC)- Primary Ulcer of left foot with fat layer exposed (HCC) [facility] Diagnosis Ulcer of left foot with fat layer exposed (HCC)- Primary Diabetic peripheral neuropathy (HCC) Type II or unspecified type diabetes mellitus with neurological manifestations, not stated as uncontrolled [facility]* Diagnosis Comprehensive diabetic foot examination, type 2 DM, encounter for (HCC)- Primary Diabetic peripheral neuropathy (HCC) Type II or unspecified type diabetes mellitus with neurological manifestations, not stated as uncontrolled Onychomycosis Dermatophytosis of nail Edema of both lower legs [facility]* Diagnosis Skin ulcer of right lower leg with fat layer exposed (HCC) Skin ulcer of left lower leg with fat layer exposed (HCC) Onychomycosis Dermatophytosis of nail Diabetic peripheral neuropathy (HCC) Type II or unspecified type diabetes mellitus with neurological manifestations, not stated as uncontrolled [facility] Diagnosis Skin ulcer of right lower leg, limited to breakdown of skin (HCC)- Primary [facility]* Diagnosis Onychomycosis- Primary Dermatophytosis of nail [facility]* Diagnosis Onychomycosis- Primary Dermatophytosis of nail Charcot foot due to diabetes mellitus (HCC) [facility]* Diagnosis Charcot foot due to diabetes mellitus (HCC)- Primary Onychomycosis Dermatophytosis of nail [facility]* Diagnosis Encounter for screening for malignant neoplasm of colon Polyp of colon Benign neoplasm of colon Presence of aortocoronary bypass graft Sleep apnea, unspecified Benign prostatic hyperplasia without lower urinary tract symptoms Type 2 diabetes mellitus without complications ([facility]) penitentiary (current) use of insulin ([facility]) Essential (primary) hypertension Unspecified essential hypertension Pure hypercholesterolemia, unspecified documented in this encounter [facility] Work Phone: Evaluation note* Diagnosis Encounter for screening for malignant neoplasm of colon Procedure and treatment not carried out for other reasons documented in this encounter [facility] Work Phone: Evaluation note* Diagnosis Onychomycosis- Primary Dermatophytosis of nail Diabetic peripheral neuropathy (HCC) Type II or unspecified type diabetes mellitus with neurological manifestations, not stated as uncontrolled Charcot foot due to diabetes mellitus (HCC) [facility] Diagnosis Onychomycosis- Primary Dermatophytosis of nail Diabetic peripheral neuropathy (HCC) Type II or unspecified type diabetes mellitus with neurological manifestations, not stated as uncontrolled Charcot foot due to diabetes mellitus (HCC) Wound of right lower extremity, initial encounter [facility] Diagnosis Type 2 diabetes mellitus without complication, without long-term current use of insulin (Multi)- Primary Primary hypertension Unspecified essential hypertension Mixed hyperlipidemia Benign prostatic hyperplasia with urinary frequency Diabetic polyneuropathy associated with type 2 diabetes mellitus (Multi) Acquired hypothyroidism Unspecified hypothyroidism documented in this encounter [facility] Work Phone: Evaluation note* Diagnosis Onychomycosis- Primary Dermatophytosis of nail Diabetic peripheral neuropathy (HCC) Type II or unspecified type diabetes mellitus with neurological manifestations, not stated as uncontrolled Charcot foot due to diabetes mellitus (HCC) Ulcer of right lower extremity, limited to breakdown of skin (HCC) Ulcer of left lower extremity, limited to breakdown of skin (HCC) [facility] Diagnosis Bilateral lower leg cellulitis- Primary Chronic ulcer of right leg with fat layer exposed (HCC) Chronic ulcer of left leg with fat layer exposed (HCC) Skin ulcer of left foot with fat layer exposed (HCC) Skin ulcer of second toe of left foot with fat layer exposed (HCC) Diabetic peripheral neuropathy (HCC) Type II or unspecified type diabetes mellitus with neurological manifestations, not stated as uncontrolled Charcot foot due to diabetes mellitus (HCC) [facility]* Diagnosis Osteomyelitis of second toe of left foot (HCC)- Primary Skin ulcer of second toe of left foot with fat layer exposed (HCC) Chronic ulcer of right leg with fat layer exposed (HCC) Diabetic peripheral neuropathy (HCC) Type II or unspecified type diabetes mellitus with neurological manifestations, not stated as uncontrolled PAD (peripheral artery disease) (HCC) Unspecified peripheral vascular disease [facility]* Diagnosis Other chronic osteomyelitis of foot, unspecified laterality (Multi)- Primary Mixed hyperlipidemia Primary hypertension Unspecified essential hypertension DM (diabetes mellitus), 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, not stated as uncontrolled Acquired hypothyroidism Unspecified hypothyroidism Obesity, morbid (Multi) Morbid obesity Benign prostatic hyperplasia with urinary obstruction documented in this encounter [facility] Work Phone: Evaluation note* Diagnosis Bilateral lower extremity edema- Primary Osteomyelitis of second toe of left foot (HCC) Skin ulcer of second toe of left foot with fat layer exposed (HCC) [facility] Diagnosis Benign prostatic hyperplasia with urinary frequency Diabetic polyneuropathy associated with type 2 diabetes mellitus (Multi) Primary hypertension Unspecified essential hypertension Type 2 diabetes mellitus without complication, without long-term current use of insulin (Multi) Mixed hyperlipidemia Acquired hypothyroidism Unspecified hypothyroidism Leg swelling Swelling of limb documented in this encounter [facility] Work Phone: Evaluation note* Diagnosis Bilateral lower extremity edema Skin ulcer of second toe of left foot with fat layer exposed (HCC) Chronic foot ulcer with fat layer exposed, left (HCC) [facility]* Diagnosis Osteomyelitis (HCC)- Primary Unspecified osteomyelitis, site unspecified 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 Infection due to other gram-negative organisms in conditions classified elsewhere and of unspecified site S/P foot surgery, right 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) Foot ulcer with fat layer exposed, right (HCC) Subacute osteomyelitis of right ankle (HCC) 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) JAYDEN (obstructive sleep apnea) Obstructive sleep apnea (adult) (pediatric) Mixed hyperlipidemia Essential hypertension Unspecified essential hypertension Benign prostatic hyperplasia with urinary retention S/P foot surgery, right Bilateral lower extremity edema- Primary Skin ulcer of second toe of left foot with fat layer exposed (HCC) Osteomyelitis of second toe of left foot (HCC) Chronic foot ulcer with fat layer exposed, left (HCC) [facility] Diagnosis Osteomyelitis (HCC)- Primary Unspecified osteomyelitis, site unspecified 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 Infection due to other gram-negative organisms in conditions classified elsewhere and of unspecified site S/P foot surgery, right 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) Foot ulcer with fat layer exposed, right (HCC) Subacute osteomyelitis of right ankle (HCC) 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) JAYDEN (obstructive sleep apnea) Obstructive sleep apnea (adult) (pediatric) Mixed hyperlipidemia Essential hypertension Unspecified essential hypertension Benign prostatic hyperplasia with urinary retention S/P foot surgery, right Skin ulcer of second toe of left foot with fat layer exposed (HCC)- Primary Chronic foot ulcer with fat layer exposed, left (HCC) [facility] Diagnosis Osteomyelitis (HCC)- Primary Unspecified osteomyelitis, site unspecified 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 Infection due to other gram-negative organisms in conditions classified elsewhere and of unspecified site S/P foot surgery, right 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) Foot ulcer with fat layer exposed, right (HCC) Subacute osteomyelitis of right ankle (HCC) 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) JAYDEN (obstructive sleep apnea) Obstructive sleep apnea (adult) (pediatric) Mixed hyperlipidemia Essential hypertension Unspecified essential hypertension Benign prostatic hyperplasia with urinary retention S/P foot surgery, right Skin ulcer of second toe of left foot with fat layer exposed (HCC)- Primary Blister of left lower extremity, initial encounter [facility]* Diagnosis Osteomyelitis (HCC)- Primary Unspecified osteomyelitis, site unspecified 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 Infection due to other gram-negative organisms in conditions classified elsewhere and of unspecified site S/P foot surgery, right 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) Foot ulcer with fat layer exposed, right (HCC) Subacute osteomyelitis of right ankle (HCC) 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) JAYDEN (obstructive sleep apnea) Obstructive sleep apnea (adult) (pediatric) Mixed hyperlipidemia Essential hypertension Unspecified essential hypertension Benign prostatic hyperplasia with urinary retention S/P foot surgery, right Skin ulcer of second toe of left foot with fat layer exposed (HCC)- Primary Osteomyelitis of toe of left foot (HCC) Unspecified osteomyelitis, ankle and foot Blister of left lower extremity, initial encounter [facility]* Diagnosis Osteomyelitis (HCC)- Primary Unspecified osteomyelitis, site unspecified 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 Infection due to other gram-negative organisms in conditions classified elsewhere and of unspecified site S/P foot surgery, right 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) Foot ulcer with fat layer exposed, right (HCC) Subacute osteomyelitis of right ankle (HCC) 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) JAYDEN (obstructive sleep apnea) Obstructive sleep apnea (adult) (pediatric) Mixed hyperlipidemia Essential hypertension Unspecified essential hypertension Benign prostatic hyperplasia with urinary retention S/P foot surgery, right Skin ulcer of second toe of left foot with fat layer exposed (HCC)- Primary Chronic foot ulcer with fat layer exposed, left (HCC) Bilateral lower extremity edema [facility] Diagnosis Obesity, morbid (Multi)- Primary Morbid obesity Mixed hyperlipidemia DM (diabetes mellitus), type 2 with neurological complications (Multi) Type II or unspecified type diabetes mellitus with neurological manifestations, not stated as uncontrolled Acquired hypothyroidism Unspecified hypothyroidism documented in this encounter [facility] Work Phone: Evaluation note* Diagnosis Leg swelling- Primary Swelling of limb Heart failure due to high blood pressure (Multi) Unspecified hypertensive heart disease with heart failure Mixed hyperlipidemia DM (diabetes mellitus), type 2 with neurological complications (Multi) Type II or unspecified type diabetes mellitus with neurological manifestations, not stated as uncontrolled documented in this encounter [facility] Work Phone: Evaluation note* Diagnosis Osteomyelitis (HCC)- Primary Unspecified osteomyelitis, site unspecified 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 Infection due to other gram-negative organisms in conditions classified elsewhere and of unspecified site S/P foot surgery, right 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) Foot ulcer with fat layer exposed, right (HCC) Subacute osteomyelitis of right ankle (HCC) 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) JAYDEN (obstructive sleep apnea) Obstructive sleep apnea (adult) (pediatric) Mixed hyperlipidemia Essential hypertension Unspecified essential hypertension Benign prostatic hyperplasia with urinary retention S/P foot surgery, right Blister of right lower extremity, initial encounter- Primary Skin ulcer of right lower leg with fat layer exposed (HCC) [facility] Diagnosis Osteomyelitis (HCC)- Primary Unspecified osteomyelitis, site unspecified 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 Infection due to other gram-negative organisms in conditions classified elsewhere and of unspecified site S/P foot surgery, right 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) Foot ulcer with fat layer exposed, right (HCC) Subacute osteomyelitis of right ankle (HCC) 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) JAYDEN (obstructive sleep apnea) Obstructive sleep apnea (adult) (pediatric) Mixed hyperlipidemia Essential hypertension Unspecified essential hypertension Benign prostatic hyperplasia with urinary retention S/P foot surgery, right Skin ulcer of middle toe, right, with fat layer exposed (HCC)- Primary Diabetic peripheral neuropathy (HCC) Type II or unspecified type diabetes mellitus with neurological manifestations, not stated as uncontrolled PAD (peripheral artery disease) (HCC) Unspecified peripheral vascular disease [facility] Diagnosis Osteomyelitis (HCC)- Primary Unspecified osteomyelitis, site unspecified 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 Infection due to other gram-negative organisms in conditions classified elsewhere and of unspecified site S/P foot surgery, right 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) Foot ulcer with fat layer exposed, right (HCC) Subacute osteomyelitis of right ankle (HCC) 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) JAYDEN (obstructive sleep apnea) Obstructive sleep apnea (adult) (pediatric) Mixed hyperlipidemia Essential hypertension Unspecified essential hypertension Benign prostatic hyperplasia with urinary retention S/P foot surgery, right Skin ulcer of middle toe, right, with fat layer exposed (HCC)- Primary Diabetic peripheral neuropathy (HCC) Type II or unspecified type diabetes mellitus with neurological manifestations, not stated as uncontrolled PAD (peripheral artery disease) (HCC) Unspecified peripheral vascular disease [facility] [place] Diagnosis Osteomyelitis (HCC)- Primary Unspecified osteomyelitis, site unspecified 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 Infection due to other gram-negative organisms in conditions classified elsewhere and of unspecified site S/P foot surgery, right 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) Foot ulcer with fat layer exposed, right (HCC) Subacute osteomyelitis of right ankle (HCC) 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) JAYDEN (obstructive sleep apnea) Obstructive sleep apnea (adult) (pediatric) Mixed hyperlipidemia Essential hypertension Unspecified essential hypertension Benign prostatic hyperplasia with urinary retention S/P foot surgery, right Bilateral lower extremity edema- Primary Chronic venous insufficiency Unspecified venous (peripheral) insufficiency Skin ulcer of right lower leg, limited to breakdown of skin (HCC) Chronic ulcer of left leg with fat layer exposed (HCC) Skin ulcer of right great toe, limited to breakdown of skin (HCC) [facility] [place] Diagnosis Osteomyelitis (HCC)- Primary Unspecified osteomyelitis, site unspecified 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 Infection due to other gram-negative organisms in conditions classified elsewhere and of unspecified site S/P foot surgery, right 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) Foot ulcer with fat layer exposed, right (HCC) Subacute osteomyelitis of right ankle (HCC) 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) JAYDEN (obstructive sleep apnea) Obstructive sleep apnea (adult) (pediatric) Mixed hyperlipidemia Essential hypertension Unspecified essential hypertension Benign prostatic hyperplasia with urinary retention S/P foot surgery, right Skin ulcer of left foot with fat layer exposed (HCC)- Primary Chronic venous insufficiency Unspecified venous (peripheral) insufficiency Skin ulcer of right foot with fat layer exposed (HCC) Bilateral lower extremity edema [facility] [place] Diagnosis Osteomyelitis (HCC)- Primary Unspecified osteomyelitis, site unspecified 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 Infection due to other gram-negative organisms in conditions classified elsewhere and of unspecified site S/P foot surgery, right 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) Foot ulcer with fat layer exposed, right (HCC) Subacute osteomyelitis of right ankle (HCC) 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) JAYDEN (obstructive sleep apnea) Obstructive sleep apnea (adult) (pediatric) Mixed hyperlipidemia Essential hypertension Unspecified essential hypertension Benign prostatic hyperplasia with urinary retention S/P foot surgery, right Bilateral lower extremity edema- Primary Chronic venous insufficiency Unspecified venous (peripheral) insufficiency Skin ulcer of right lower leg, limited to breakdown of skin (HCC) Chronic ulcer of left leg with fat layer exposed (HCC) Skin ulcer of right great toe, limited to breakdown of skin (HCC) [facility] [place] Diagnosis Osteomyelitis (HCC)- Primary Unspecified osteomyelitis, site unspecified 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 Infection due to other gram-negative organisms in conditions classified elsewhere and of unspecified site S/P foot surgery, right 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) Foot ulcer with fat layer exposed, right (HCC) Subacute osteomyelitis of right ankle (HCC) 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) JAYDEN (obstructive sleep apnea) Obstructive sleep apnea (adult) (pediatric) Mixed hyperlipidemia Essential hypertension Unspecified essential hypertension Benign prostatic hyperplasia with urinary retention S/P foot surgery, right Bilateral lower extremity edema- Primary Skin ulcer of right lower leg, limited to breakdown of skin (HCC) Chronic ulcer of left leg with fat layer exposed (HCC) [facility] [place] Diagnosis Osteomyelitis (HCC)- Primary Unspecified osteomyelitis, site unspecified 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 Infection due to other gram-negative organisms in conditions classified elsewhere and of unspecified site S/P foot surgery, right 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) Foot ulcer with fat layer exposed, right (HCC) Subacute osteomyelitis of right ankle (HCC) 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) JAYDEN (obstructive sleep apnea) Obstructive sleep apnea (adult) (pediatric) Mixed hyperlipidemia Essential hypertension Unspecified essential hypertension Benign prostatic hyperplasia with urinary retention S/P foot surgery, right Skin ulcer of right lower leg with fat layer exposed (HCC)- Primary Skin ulcer of left lower leg with fat layer exposed (HCC) Bilateral lower extremity edema [facility] [place] Diagnosis Osteomyelitis (HCC)- Primary Unspecified osteomyelitis, site unspecified 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 Infection due to other gram-negative organisms in conditions classified elsewhere and of unspecified site S/P foot surgery, right 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) Foot ulcer with fat layer exposed, right (HCC) Subacute osteomyelitis of right ankle (HCC) 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) JAYDEN (obstructive sleep apnea) Obstructive sleep apnea (adult) (pediatric) Mixed hyperlipidemia Essential hypertension Unspecified essential hypertension Benign prostatic hyperplasia with urinary retention S/P foot surgery, right Pressure ulcer of toe of left foot, stage 1- Primary Diabetic peripheral neuropathy (HCC) Type II or unspecified type diabetes mellitus with neurological manifestations, not stated as uncontrolled [facility] [place] Diagnosis Encounter to establish care with new provider- Primary Hypertension associated with diabetes Unspecified essential hypertension Acquired hypothyroidism Unspecified hypothyroidism DM (diabetes mellitus), 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, not stated as uncontrolled Class 2 severe obesity due to excess calories with serious comorbidity and body mass index (BMI) of 37.0 to 37.9 in adult Charcot foot due to diabetes mellitus (Multi) Screening PSA (prostate specific antigen) Special screening for malignant neoplasm of prostate Vitamin D deficiency Iron deficiency anemia, unspecified iron deficiency anemia type Cervicalgia Sinus bradycardia Other specified cardiac dysrhythmias Mixed hyperlipidemia Coronary artery disease involving 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 AV block, 1st degree First degree atrioventricular block Acute on chronic combined systolic and diastolic heart failure documented in this encounter [facility] Work Phone: Evaluation note* Diagnosis Osteomyelitis (HCC)- Primary Unspecified osteomyelitis, site unspecified 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 Infection due to other gram-negative organisms in conditions classified elsewhere and of unspecified site S/P foot surgery, right 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) Foot ulcer with fat layer exposed, right (HCC) Subacute osteomyelitis of right ankle (HCC) 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) JAYDEN (obstructive sleep apnea) Obstructive sleep apnea (adult) (pediatric) Mixed hyperlipidemia Essential hypertension Unspecified essential hypertension Benign prostatic hyperplasia with urinary retention S/P foot surgery, right Pressure ulcer of toe of left foot, stage 1- Primary Skin ulcer of second toe of right foot with fat layer exposed (HCC) Diabetic peripheral neuropathy (HCC) Type II or unspecified type diabetes mellitus with neurological manifestations, not stated as uncontrolled [facility] [place] Diagnosis Osteomyelitis (HCC)- Primary Unspecified osteomyelitis, site unspecified 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 Infection due to other gram-negative organisms in conditions classified elsewhere and of unspecified site S/P foot surgery, right 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) Foot ulcer with fat layer exposed, right (HCC) Subacute osteomyelitis of right ankle (HCC) 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) JAYDEN (obstructive sleep apnea) Obstructive sleep apnea (adult) (pediatric) Mixed hyperlipidemia Essential hypertension Unspecified essential hypertension Benign prostatic hyperplasia with urinary retention S/P foot surgery, right Skin ulcer of second toe of right foot with fat layer exposed (HCC)- Primary Pressure ulcer of toe of left foot, stage 1 Diabetic peripheral neuropathy (HCC) Type II or unspecified type diabetes mellitus with neurological manifestations, not stated as uncontrolled [facility]omyelitis (HCC)- Primary Unspecified osteomyelitis, site unspecified 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 Infection due to other gram-negative organisms in conditions classified elsewhere and of unspecified site S/P foot surgery, right 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) Foot ulcer with fat layer exposed, right (HCC) Subacute osteomyelitis of right ankle (HCC) 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) JAYDEN (obstructive sleep apnea) Obstructive sleep apnea (adult) (pediatric) Mixed hyperlipidemia Essential hypertension Unspecified essential hypertension Benign prostatic hyperplasia with urinary retention S/P foot surgery, right Skin ulcer of second toe of right foot with fat layer exposed (HCC)- Primary Pressure ulcer of toe of left foot, stage 1 Diabetic peripheral neuropathy (HCC) Type II or unspecified type diabetes mellitus with neurological manifestations, not stated as uncontrolled [facility] Diagnosis Osteomyelitis (HCC)- Primary Unspecified osteomyelitis, site unspecified 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 Infection due to other gram-negative organisms in conditions classified elsewhere and of unspecified site S/P foot surgery, right 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) Foot ulcer with fat layer exposed, right (HCC) Subacute osteomyelitis of right ankle (HCC) 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) JAYDEN (obstructive sleep apnea) Obstructive sleep apnea (adult) (pediatric) Mixed hyperlipidemia Essential hypertension Unspecified essential hypertension Benign prostatic hyperplasia with urinary retention S/P foot surgery, right Pressure ulcer of toe of left foot, stage 2 (HCC)- Primary Skin ulcer of second toe of right foot with fat layer exposed (HCC) Diabetic peripheral neuropathy (HCC) Type II or unspecified type diabetes mellitus with neurological manifestations, not stated as uncontrolled [facility] [place] Diagnosis Cervicalgia documented in this encounter [facility] Work Phone: Evaluation note* Diagnosis Osteomyelitis (HCC)- Primary Unspecified osteomyelitis, site unspecified 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 Infection due to other gram-negative organisms in conditions classified elsewhere and of unspecified site S/P foot surgery, right 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) Foot ulcer with fat layer exposed, right (HCC) Subacute osteomyelitis of right ankle (HCC) 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) JAYDEN (obstructive sleep apnea) Obstructive sleep apnea (adult) (pediatric) Mixed hyperlipidemia Essential hypertension Unspecified essential hypertension Benign prostatic hyperplasia with urinary retention S/P foot surgery, right Pressure ulcer of toe of left foot, stage 2 (HCC)- Primary Skin ulcer of small toe of left foot, with fat layer exposed (HCC) Diabetic peripheral neuropathy (HCC) Type II or unspecified type diabetes mellitus with neurological manifestations, not stated as uncontrolled [facility]omyelitis (HCC)- Primary Unspecified osteomyelitis, site unspecified 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 Infection due to other gram-negative organisms in conditions classified elsewhere and of unspecified site S/P foot surgery, right 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) Foot ulcer with fat layer exposed, right (HCC) Subacute osteomyelitis of right ankle (HCC) 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) JAYDEN (obstructive sleep apnea) Obstructive sleep apnea (adult) (pediatric) Mixed hyperlipidemia Essential hypertension Unspecified essential hypertension Benign prostatic hyperplasia with urinary retention S/P foot surgery, right Blister of right lower extremity, initial encounter- Primary Blister of left lower extremity, initial encounter Bilateral lower extremity edema Chronic venous insufficiency Unspecified venous (peripheral) insufficiency Skin ulcer of small toe of left foot, with fat layer exposed (HCC) Pressure ulcer of toe of left foot, stage 2 (HCC) Diabetic peripheral neuropathy (HCC) Type II or unspecified type diabetes mellitus with neurological manifestations, not stated as uncontrolled [facility] Diagnosis Medicare annual wellness visit, subsequent- Primary Routine general medical examination at health care facility Routine general medical examination at a health care facility Vitamin D deficiency Hypertension associated with diabetes Unspecified essential hypertension DM (diabetes mellitus), 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, not stated as uncontrolled Acquired hypothyroidism Unspecified hypothyroidism Low ferritin Other nonspecific findings on examination of blood Iron deficiency anemia, unspecified iron deficiency anemia type Medication management Advanced care planning/counseling discussion Class 2 severe obesity due to excess calories with serious comorbidity and body mass index (BMI) of 37.0 to 37.9 in adult Charcot foot due to diabetes mellitus (Multi) Cervicalgia documented in this encounter [facility] Work Phone: Evaluation note* Diagnosis Osteomyelitis (HCC)- Primary Unspecified osteomyelitis, site unspecified 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 Infection due to other gram-negative organisms in conditions classified elsewhere and of unspecified site S/P foot surgery, right 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) Foot ulcer with fat layer exposed, right (HCC) Subacute osteomyelitis of right ankle (HCC) 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) JAYDEN (obstructive sleep apnea) Obstructive sleep apnea (adult) (pediatric) Mixed hyperlipidemia Essential hypertension Unspecified essential hypertension Benign prostatic hyperplasia with urinary retention S/P foot surgery, right Skin ulcer of small toe of left foot, with fat layer exposed (HCC)- Primary Pressure ulcer of toe of left foot, stage 2 (HCC) [facility] Diagnosis Osteomyelitis (HCC)- Primary Unspecified osteomyelitis, site unspecified 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 Infection due to other gram-negative organisms in conditions classified elsewhere and of unspecified site S/P foot surgery, right 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) Foot ulcer with fat layer exposed, right (HCC) Subacute osteomyelitis of right ankle (HCC) 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) JAYDEN (obstructive sleep apnea) Obstructive sleep apnea (adult) (pediatric) Mixed hyperlipidemia Essential hypertension Unspecified essential hypertension Benign prostatic hyperplasia with urinary retention S/P foot surgery, right Blister of right lower extremity, initial encounter- Primary Blister of left lower extremity, initial encounter Skin ulcer of small toe of left foot, with fat layer exposed (HCC) Pressure ulcer of toe of left foot, stage 2 (HCC) [facility] [place] Diagnosis Osteomyelitis (HCC)- Primary Unspecified osteomyelitis, site unspecified 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 Infection due to other gram-negative organisms in conditions classified elsewhere and of unspecified site S/P foot surgery, right 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) Foot ulcer with fat layer exposed, right (HCC) Subacute osteomyelitis of right ankle (HCC) 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) JAYDEN (obstructive sleep apnea) Obstructive sleep apnea (adult) (pediatric) Mixed hyperlipidemia Essential hypertension Unspecified essential hypertension Benign prostatic hyperplasia with urinary retention S/P foot surgery, right Skin ulcer of right lower leg with fat layer exposed (HCC)- Primary Skin ulcer of left lower leg with fat layer exposed (HCC) Skin ulcer of small toe of left foot, with fat layer exposed (HCC) Pressure ulcer of toe of left foot, stage 2 (HCC) [facility] [place] Diagnosis Osteomyelitis (HCC)- Primary Unspecified osteomyelitis, site unspecified 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 Infection due to other gram-negative organisms in conditions classified elsewhere and of unspecified site S/P foot surgery, right 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) Foot ulcer with fat layer exposed, right (HCC) Subacute osteomyelitis of right ankle (HCC) 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) JAYDEN (obstructive sleep apnea) Obstructive sleep apnea (adult) (pediatric) Mixed hyperlipidemia Essential hypertension Unspecified essential hypertension Benign prostatic hyperplasia with urinary retention S/P foot surgery, right Pressure ulcer of toe of left foot, stage 2 (HCC)- Primary Skin ulcer of small toe of left foot, with fat layer exposed (HCC) Diabetic peripheral neuropathy (HCC) Type II or unspecified type diabetes mellitus with neurological manifestations, not stated as uncontrolled [facility] Diagnosis Osteomyelitis (HCC)- Primary Unspecified osteomyelitis, site unspecified 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 Infection due to other gram-negative organisms in conditions classified elsewhere and of unspecified site S/P foot surgery, right 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) Foot ulcer with fat layer exposed, right (HCC) Subacute osteomyelitis of right ankle (HCC) 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) JAYDEN (obstructive sleep apnea) Obstructive sleep apnea (adult) (pediatric) Mixed hyperlipidemia Essential hypertension Unspecified essential hypertension Benign prostatic hyperplasia with urinary retention S/P foot surgery, right Blister of third toe- Primary Blister of left lower extremity, initial encounter Pressure ulcer of toe of left foot, stage 2 (HCC) Skin ulcer of small toe of left foot, with fat layer exposed (HCC) Diabetic peripheral neuropathy (HCC) Type II or unspecified type diabetes mellitus with neurological manifestations, not stated as uncontrolled [facility] Diagnosis Osteomyelitis (HCC)- Primary Unspecified osteomyelitis, site unspecified 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 Infection due to other gram-negative organisms in conditions classified elsewhere and of unspecified site S/P foot surgery, right 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) Foot ulcer with fat layer exposed, right (HCC) Subacute osteomyelitis of right ankle (HCC) 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) JAYDEN (obstructive sleep apnea) Obstructive sleep apnea (adult) (pediatric) Mixed hyperlipidemia Essential hypertension Unspecified essential hypertension Benign prostatic hyperplasia with urinary retention S/P foot surgery, right Skin ulcer of small toe of left foot, with fat layer exposed (HCC)- Primary Pressure ulcer of toe of left foot, stage 2 (HCC) Skin ulcer of right lower leg with fat layer exposed (HCC) Skin ulcer of left lower leg with fat layer exposed (HCC) [facility] Diagnosis Osteomyelitis (HCC)- Primary Unspecified osteomyelitis, site unspecified 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 Infection due to other gram-negative organisms in conditions classified elsewhere and of unspecified site S/P foot surgery, right 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) Foot ulcer with fat layer exposed, right (HCC) Subacute osteomyelitis of right ankle (HCC) 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) JAYDEN (obstructive sleep apnea) Obstructive sleep apnea (adult) (pediatric) Mixed hyperlipidemia Essential hypertension Unspecified essential hypertension Benign prostatic hyperplasia with urinary retention S/P foot surgery, right Pressure ulcer of toe of left foot, stage 2 (HCC)- Primary Skin ulcer of left lower leg with fat layer exposed (HCC) Diabetic peripheral neuropathy (HCC) Type II or unspecified type diabetes mellitus with neurological manifestations, not stated as uncontrolled [facility] Diagnosis Medicare annual wellness visit, subsequent- Primary Routine general medical examination at health care facility Routine general medical examination at a health care facility Vitamin D deficiency Hypertension associated with diabetes Unspecified essential hypertension DM (diabetes mellitus), 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, not stated as uncontrolled Acquired hypothyroidism Unspecified hypothyroidism Low ferritin Other nonspecific findings on examination of blood Iron deficiency anemia, unspecified iron deficiency anemia type Medication management Advanced care planning/counseling discussion Class 2 severe obesity due to excess calories with serious comorbidity and body mass index (BMI) of 37.0 to 37.9 in adult Charcot foot due to diabetes mellitus (Multi) Cervicalgia DM (diabetes mellitus), type 2 with neurological complications- Primary Type II or unspecified type diabetes mellitus with neurological manifestations, not stated as uncontrolled Hypertension associated with diabetes Unspecified essential hypertension Class 2 severe obesity due to excess calories with serious comorbidity and body mass index (BMI) of 37.0 to 37.9 in adult documented in this encounter [facility] Work Phone: History of Present illness Narrative* Jace Reeder, DO - 07/24/2024 9:20 AM EDT Subjective Patient ID: Dyllan Huertas is a 63 y.o. male who presents for Follow-up (3mo follow up). HPI Patient is here today for 3 mo follow up Patient reports that he has been doing pretty good. SPO2 was initially low when check by staff but it did improve to 92% on room air. Review of Systems Constitutional: Negative for activity change, appetite change, chills and fatigue. HENT: Negative for congestion, postnasal drip, sinus pressure, sinus pain and sore throat. Respiratory: Negative for cough, shortness of breath and wheezing. Cardiovascular: Negative for chest pain and leg swelling. Gastrointestinal: Negative for abdominal distention, diarrhea, nausea and vomiting. Musculoskeletal: Negative for back pain. Neurological: Negative for weakness and numbness. Objective BP 132/68 Pulse 72 Ht 1.803 m (5' 11) SpO2 (!) 89% Comment: 84-89% BMI 40.73 kg/m Physical Exam Constitutional: General: He is not in acute distress. Appearance: Normal appearance. HENT: Head: Normocephalic. Nose: Nose normal. Mouth/Throat: Pharynx: No oropharyngeal exudate. Eyes: General: Right eye: No discharge. Left eye: No discharge. Extraocular Movements: Extraocular movements intact. Pupils: Pupils are equal, round, and reactive to light. Cardiovascular: Rate and Rhythm: Normal rate and regular rhythm. Heart sounds: No murmur heard. No gallop. Pulmonary: Effort: Pulmonary effort is normal. No respiratory distress. Breath sounds: Normal breath sounds. No wheezing. Musculoskeletal: General: No swelling. Normal range of motion. Comments: Still wearing foot boots for wounds Skin: General: Skin is warm and dry. Coloration: Skin is not jaundiced. Neurological: General: No focal deficit present. Mental Status: He is alert and oriented to person, place, and time. Cranial Nerves: No cranial nerve deficit. Psychiatric: Mood and Affect: Mood normal. Behavior: Behavior normal. Assessment/Plan Problem List Items Addressed This Visit Hypothyroidism Relevant Medications levothyroxine (Synthroid, Levoxyl) 100 mcg tablet Hyperlipidemia Relevant Medications fenofibrate (Triglide) 160 mg tablet Hypertension Relevant Medications carvedilol (Coreg) 25 mg tablet lisinopril 20 mg tablet chlorthalidone (Hygroton) 25 mg tablet Other Visit Diagnoses Benign prostatic hyperplasia with urinary frequency Relevant Medications finasteride (Proscar) 5 mg tablet tamsulosin (Flomax) 0.4 mg 24 hr capsule Diabetic polyneuropathy associated with type 2 diabetes mellitus (Multi) Relevant Medications gabapentin (Neurontin) 300 mg capsule Type 2 diabetes mellitus without complication, without long-term current use of insulin (Multi) Relevant Medications rosuvastatin (Crestor) 20 mg tablet metFORMIN XR 500 mg 24 hr tablet Other Relevant Orders Hemoglobin A1C Comprehensive Metabolic Panel CBC and Auto Differential Lipid Panel Leg swelling Relevant Medications bumetanide (Bumex) 0.5 mg tablet Osteomyelitis s/p debridement and partial right second toe amputation - following with Dr Mora - using prizm - has home care with wound care and they are healing 2. DMII , diabetic neuropathy, charcot foot s/p surgery -A1c 10.3% -> 9.0% -> 8.8% - pt would like to not change meds as he knows he can do better with checking his blood sugars and diet - continue gabapentin - continue metformin 1000mg po bid - recommend eye exam 3. HTN, CHF, CAD s/p CABG x 3 2017 - sees Dr Dailey in [place] - continue chlorthalidone 25mg po daily - coreg 25mg po bid - continue lisinopril 20mg po daily - edema is resolved for now 4. HLD - continue fenofibrate - continue crestor 5. BPH - on proscar and flomax Final diagnoses: [N40.1, R35.0] Benign prostatic hyperplasia with urinary frequency [E11.42] Diabetic polyneuropathy associated with type 2 diabetes mellitus (Multi) [I10] Primary hypertension [E11.9] Type 2 diabetes mellitus without complication, without long-term current use of insulin (Multi) [E78.2] Mixed hyperlipidemia [E03.9] Acquired hypothyroidism [M79.89] Leg swelling documented in this [facility] Work Phone: Patient's home Plan of care note* Visit Details Visit Type -SN HH OASIS Star t of Care Discipline -Mcfp Problems Problem Start Date Status Goals Interventions Wound Care and/or Skin Problems Disciplines: Mcfp 07/01/2024 Active 1 goal linked to scheduled/documented intervention 2 problem interventions scheduled/documented in this visit 1 goal intervention scheduled/documented in this visit Assess and Instruct Home Visit Disciplines: Mcfp 07/01/2024 Active 2 goals linked to scheduled/documented interventions 5 goal interventions scheduled/documented in this visit Medication Management Disciplines: Mcfp 07/01/2024 Active 1 goal linked to scheduled/documented intervention 1 goal intervention scheduled/documented in this visit Pain Management Disciplines: Mcfp 07/01/2024 Active 1 goal linked to scheduled/documented intervention 1 goal intervention scheduled/documented in this visit Goals Goal Associated Problem Outcome Goal Met? Visit Notes Wound/Incision Wound Care and/or Skin Problems No Rehospitalization Risk Assess and Instruct Home Visit No Home Care Plan Assess and Instruct Home Visit No Medications Medication Management No Pain Pain Management No Interventions Intervention Associated Problem/Goal Status Variance Visit Notes Wound/Incision Care Problem:Wound Care and/or Skin Problems Goal:Wound/Incision Completed Wound is non-healing. Educated patient on hand hygiene and infection control techniques, dressing removal, cleansing wound, applying dressing, signs/symptoms of infection and when to call or report concerns to home health or provider. patient able to verbalize teach back of hand hygiene, signs/symptoms of infection and when to call or report concerns to home health or provider. patient able to return demonstration of hand hygiene and infection control techniques, dressing removal, cleansing wound and applying dressing. patient continuing to require wound education on hand hygiene and infection control techniques, dressing removal, cleansing wound, applying dressing, signs/symptoms of infection and when to call or report concerns to home health or provider. Wound/Incision Problem:Wound Care and/or Skin Problems Completed Wound is non-healing. Educated patient on hand hygiene and infection control techniques, dressing removal, cleansing wound, applying dressing, signs/symptoms of infection and when to call or report concerns to home health or provider. patient able to verbalize teach back of hand hygiene, signs/symptoms of infection and when to call or report concerns to home health or provider. patient able to return demonstration of hand hygiene and infection control techniques, dressing removal, cleansing wound and applying dressing. patient continuing to require wound education on hand hygiene and infection control techniques, dressing removal, cleansing wound, applying dressing, signs/symptoms of infection and when to call or report concerns to home health or provider. Wound/Incision Problem:Wound Care and/or Skin Problems Completed Wound is non-healing. Educated patient on hand hygiene and infection control techniques, dressing removal, cleansing wound, applying dressing, signs/symptoms of infection and when to call or report concerns to home health or provider. patient able to verbalize teach back of hand hygiene, signs/symptoms of infection and when to call or report concerns to home health or provider. patient able to return demonstration of hand hygiene and infection control techniques, dressing removal, cleansing wound and applying dressing. patient continuing to require wound education on hand hygiene and infection control techniques, dressing removal, cleansing wound, applying dressing, signs/symptoms of infection and when to call or report concerns to home health or provider. Rehospitalization Risk Problem:Assess and Instruct Home Visit Goal:Rehospitalizati on Risk Completed patient educated on vital sign log, 26/04 home health call center. patient response to provided education verbalized understanding Further intervention/collabor ation needs if applicable education on DM mgmt, wound care, infection prevention Falls Problem:Assess and Instruct Home Visit Goal:Home Care Plan Completed Clinician taught: patient 4-10 Patient IS at risk for falls (a score of 6 or greater is a predictor of future falls) and clinician instructed: proper footwear, improved lighting, remove clutter and throw rugs, assistive device usage, keep frequently used items in reach and emergency response system and/or keep phone on you Patient/caregiver was able to demonstrate 75% via teachback Safety Problem:Assess and Instruct Home Visit Goal:Home Care Plan Completed Assessed patient vulnerability and home safety risks: environmental Equipment reviewed wheelchaor, wound supplies Patient at risk for falls and infeciton Family members involved in safety plan for Level 2 or 3 n/a Discharge Planning Problem:Assess and Instruct Home Visit Goal:Home Care Plan Completed Home Visit DC Planning: Spoke with patient about DC planning. DC will occur when: patient/caregiver is able to demonstrate safe ambulation, understanding of medications, wound healing, remain free of infection, wound care, edema mgmt Anticipate DC: On time Patient and/or caregiver response to discharge planning education: verbalized understanding of care plan goals Plan for Next Visit Problem:Assess and Instruct Home Visit Goal:Home Care Plan Completed Follow up education for next visit: safe ambulation, medication purpose and side effects, S&S to report, wound care, edema mgmt, DM mgmt, Skilled intervention at next visit: assessing compliance and medication teaching, for disease mgmt assessment and teaching, including diet, activity, S/S to report to physician, equipment management Instruct Medication Management Problem:Medication Management Goal:Medications Completed Home Visit Med Education: Medication list reconciled. Medication profile and in-home medication list updated with appropriate changes. Discrepanices noted during home visit: none Instructed patient on dosing, purpose, and side effects. Medication education completed today on routine, new medication(s). Patient/caregiver is able to teach back 75% of instruction. Assess Pain Characteristics and Current Pain Regimen and Instruct Methods of Pain Relief Problem:Pain Management Goal:Pain Com[facility] Visit Details Visit Type -SN Missed Visit Discipline -Mcfp Problems Problem Start Date Status Goals Interventions Wound Care and/or Skin Problems Disciplines: Mcfp 07/01/2024 Active 1 goal linked to scheduled/documented intervention 2 problem interventions scheduled/documented in this visit 1 goal intervention scheduled/documented in this visit Assess and Instruct Home Visit Disciplines: Mcfp 07/01/2024 Active 2 goals linked to scheduled/documented interventions 5 goal interventions scheduled/documented in this visit Medication Management Disciplines: Mcfp 07/01/2024 Active 1 goal linked to scheduled/documented intervention 1 goal intervention scheduled/documented in this visit Pain Management Disciplines: Mcfp 07/01/2024 Active 1 goal linked to scheduled/documented intervention 1 goal intervention scheduled/documented in this visit Goals Goal Associated Problem Outcome Goal Met? Visit Notes Wound/Incision Wound Care and/or Skin Problems No Rehospitalization Risk Assess and Instruct Home Visit No Home Care Plan Assess and Instruct Home Visit No Medications Medication Management No Pain Pain Management No Interventions Intervention Associated Problem/Goal Status Variance Visit Notes Wound/Incision Care Problem:Wound Care and/or Skin Problems Goal:Wound/Incision Scheduled Wound/Incision Problem:Wound Care and/or Skin Problems Scheduled Wound/Incision Problem:Wound Care and/or Skin Problems Scheduled Rehospitalization Risk Problem:Assess and Instruct Home Visit Goal:Rehospitalization Risk Scheduled Falls Problem:Assess and Instruct Home Visit Goal:Home Care Plan Scheduled Safety Problem:Assess and Instruct Home Visit Goal:Home Care Plan Scheduled Discharge Planning Problem:Assess and Instruct Home Visit Goal:Home Care Plan Scheduled Plan for Next Visit Problem:Assess and Instruct Home Visit Goal:Home Care Plan Scheduled Instruct Medication Management Problem:Medication Management Goal:Medications Scheduled Assess Pain Characteristics and Current Pain Regimen and Instruct Methods of Pain Relief Problem:Pain Management Goal:Pain Scheduled [facility]* Visit Details Visit Type -SN HH OASIS Disc harge Discipline -Mcfp Problems Problem Start Date Status Goals Interventions Wound Care and/or Skin Problems Disciplines: Mcfp 07/01/2024 Resolved on 07/31/2024 3 goals linked to scheduled/documented interventions 2 problem interventions scheduled/documented in this visit 1 goal intervention scheduled/documented in this visit Circulation Disciplines: Mcfp 07/01/2024 Resolved on 07/31/2024 1 goal linked to scheduled/documented intervention Diabetes Disciplines: Mcfp 07/01/2024 Resolved on 07/31/2024 1 goal linked to scheduled/documented intervention Assess and Instruct Home Visit Disciplines: Mcfp 07/01/2024 Resolved on 07/31/2024 2 goals linked to scheduled/documented interventions 5 goal interventions scheduled/documented in this visit Medication Management Disciplines: Mcfp 07/01/2024 Resolved on 07/31/2024 1 goal linked to scheduled/documented intervention 1 goal intervention scheduled/documented in this visit Pain Management Disciplines: Mcfp 07/01/2024 Resolved on 07/31/2024 1 goal linked to scheduled/documented intervention 1 goal intervention scheduled/documented in this visit Assess POC Synopsis Disciplines: Mcfp 07/01/2024 Resolved on 07/31/2024 2 goals linked to scheduled/documented interventions Goals Goal Associated Problem Outcome Goal Met? Visit Notes Wound/Incision Wound Care and/or Skin Problems Completed Yes Skin Breakdown Wound Care and/or Skin Problems Completed Yes Cellulitis Wound Care and/or Skin Problems Completed Yes Circulation Circulation Completed Yes Diabetes Diabetes Completed Yes Rehospitalization Risk Assess and Instruct Home Visit Completed Yes Home Care Plan Assess and Instruct Home Visit Completed Yes Medications Medication Management Completed Yes Pain Pain Management Completed Yes Pressure Ulcer Prevention Assess POC Synopsis Completed Yes Diabetic Foot Education Assess POC Synopsis Completed Yes Interventions Intervention Associated Problem/Goal Status Variance Visit Notes Wound/Incision Care Problem:Wound Care and/or Skin Problems Goal:Wound/Incision Scheduled Wound/Incision Problem:Wound Care and/or Skin Problems Scheduled Wound/Incision Problem:Wound Care and/or Skin Problems Scheduled Rehospitalization Risk Problem:Assess and Instruct Home Visit Goal:Rehospitalization Risk Scheduled Falls Problem:Assess and Instruct Home Visit Goal:Home Care Plan Scheduled Safety Problem:Assess and Instruct Home Visit Goal:Home Care Plan Scheduled Discharge Planning Problem:Assess and Instruct Home Visit Goal:Home Care Plan Scheduled Plan for Next Visit Problem:Assess and Instruct Home Visit Goal:Home Care Plan Scheduled Instruct Medication Management Problem:Medication Management Goal:Medications Scheduled Assess Pain Characteristics and Current Pain Regimen and Instruct Methods of Pain Relief Problem:Pain Management Goal:Pain Scheduled [facility] Consultation (Routine) - Authorized Specialty Diagnoses / Procedures Referred By Contac t Referred To Contact Primary Care Procedures Follow Up In Primary Care - Established Jace Reeder DO [address] [place] [address] [place] [address] Referral ID Status Reason Start Date Expiration Date V isits Requested Visits Authorized [id number] Authorized 01/19/2024 01/18/2025 1 1 [facility] Work Phone: reason for referral (narrative)* Consultation (Routine) - Authorized Specialty Diagnoses / Procedures Referred By Contac t Referred To Contact Primary Care Procedures Follow Up In Primary Care - Established Jace Reeder DO [address] [place] [address] Physician [place] [phone] Phone: tel: fax: Referral ID Status Reason Start Date Expiration Date V isits Requested Visits Authorized [id number] Authorized 07/24/2024 07/24/2025 1 1 [facility] Work Phone: reason for referral (narrative)* Consultation (Routine) - Authorized Specialty Diagnoses / Procedures Referred By Contac t Referred To Contact Primary Care Procedures Follow Up In Primary Care - Established Jace Reeder DO [address] [place] [address] [place] [address] Referral ID Status Reason Start Date Expiration Date V isits Requested Visits Authorized [id number] Authorized 04/17/2024 04/17/2025 1 1 * Consultation (Routine) - Authorized Specialty Diagnoses / Procedures Referred By Contac t Referred To Contact Primary Care Procedures Follow Up In Primary Care - Established Jace Reeder DO [address] [facility] [place] [address] Referral ID Status Reason Start Date Expiration Date V isits Requested Visits Authorized [id number] Authorized 04/17/2024 04/17/2025 1 1 [facility] Work Phone: Reason for referral (narrative)No reason for referral [facility]: Reason for visit Narrative* Auth/Cert (Routine) Specialty Diagnoses / Procedures Referred By Contac t Referred To Contact Referral ID Status Reason Start Date Expiration Date Visits Re quested Visits Authorized [id number] 1 1 [facility] Summary Purpose Family History No Family History Records Found Mother Name Dates Details Family history of Status:Active Family history of cardiac di sorder(V17.49, Z82.49) Status:Active Father Name Dates Details Family history of Status:Active Family history of cardiac di sorder(V17.49, Z82.49) Status:Active Sister Name Dates Details Family history of diabetes m ellitus(V18.0, Z83.3) Status:Active Mother Name Dates Details Family history of (7 99.9, R99) Status:Active Family history of cardiac di sorder(V17.49, Z82.49) Status:Active Father Name Dates Details Family history of (7 99.9, R99) Status:Active Family history of cardiac di sorder(V17.49, Z82.49) Status:Active Sister Name Dates Details Family history of diabetes m ellitus(V18.0, Z83.3) Status:Active Mother Name Dates Details Family history of (7 99.9, R99) Status:Active Family history of cardiac di sorder(V17.49, Z82.49) Status:Active Father Name Dates Details Family history of (7 99.9, R99) Status:Active Family history of cardiac di sorder(V17.49, Z82.49) Status:Active Sister Name Dates Details Family history of diabetes m ellitus(V18.0, Z83.3) Status:Active Mother Name Dates Details Family history of (7 99.9, R99) Status:Active Family history of cardiac di sorder(V17.49, Z82.49) Status:Active Father Name Dates Details Family history of (7 99.9, R99) Status:Active Family history of cardiac di sorder(V17.49, Z82.49) Status:Active Sister Name Dates Details Family history of diabetes m ellitus(V18.0, Z83.3) Status:Active Unknown Family Member Name Dates Details Family history of diabetes m ellitus: Sister(V18.0, Z83.3) Status:Active : Mother, Father Status:Active Family history of cardiac di sorder: Mother, Father(V17.49, Z82.49) Status:Active Relationship Condition Age at Onset Recorded Date/T rober mother Coronary artery disease Unknown Diabetes mellitus Unknown father Coronary artery disease Unknown Sudden cardiac Unknown Unknown Family Member Name Dates Details Family history of diabetes m ellitus: Sister(V18.0, Z83.3) Status:Active : Mother, Father Status:Active Family history of cardiac di sorder: Mother, Father(V17.49, Z82.49) Status:Active Unknown Family Member Name Dates Details Family history of diabetes m ellitus: Sister(V18.0, Z83.3) Status:Active : Mother, Father Status:Active Family history of cardiac di sorder: Mother, Father(V17.49, Z82.49) Status:Active Unknown Family Member Name Dates Details Family history of cardiac di sorder: Mother, Father(V17.49, Z82.49) Status:Active : Mother, Father Status:Active Family history of diabetes m ellitus: Sister(V18.0, Z83.3) Status:Active Advance Directives No Advanced Directives Records FoundDocuments on File Type Date Recorded Patient Ladder Operator Expl anation Advance Directives and Livin g Will 03/31/2019 12:50 PM Latest Code Status on File Code Status Date Activated Date Inactivated Comments Full Code 01/25/2019 9:45 AM Documents on File Type Date Recorded Patient Ladder Operator Expl anation Advance Directives and Livin g Will 04/07/2019 2:08 PM Documents on File Type Date Recorded Patient Ladder Operator Expl anation Advance Directives and Livin g Will 04/14/2019 1:34 PM Documents on File Type Date Recorded Patient Ladder Operator Expl anation Advance Directives and Livin g Will 04/28/2019 12:54 PM Latest Code Status on File Code Status Date Activated Date Inactivated Comments Full Code 01/25/2019 9:45 AM Documents on File Type Date Recorded Patient Ladder Operator Expl anation Advance Directives and Livin g Will 05/05/2019 12:55 PM Documents on File Type Date Recorded Patient Ladder Operator Expl anation Advance Directives and Livin g Will 05/30/2019 2:31 PM Documents on File Type Date Recorded Patient Ladder Operator Expl anation Advance Directives and Livin g Will 06/13/2019 12:38 PM Documents on File Type Date Recorded Patient Ladder Operator Expl anation Advance Directives and Livin g Will 08/10/2019 10:27 AM Documents on File Type Date Recorded Patient Ladder Operator Expl anation Advance Directives and Livin g Will 08/30/2019 9:01 AM Documents on File Type Date Recorded Patient Ladder Operator Expl anation Advance Directives and Livin g Will 09/12/2019 12:54 PM Documents on File Type Date Recorded Patient Ladder Operator Expl anation Advance Directives and Livin g Will 09/19/2019 1:25 PM Documents on File Type Date Recorded Patient Ladder Operator Expl anation Advance Directives and Livin g Will 10/03/2019 1:01 PM Documents on File Type Date Recorded Patient Ladder Operator Expl anation Advance Directives and Livin g Will 10/24/2019 1:02 PM Documents on File Type Date Recorded Patient Ladder Operator Expl anation Advance Directives and Livin g Will 11/10/2019 2:04 PM Documents on File Type Date Recorded Patient Ladder Operator Expl anation Advance Directives and Livin g Will 11/16/2019 11:57 AM Documents on File Type Date Recorded Patient Ladder Operator Expl anation Advance Directives and Livin g Will 11/30/2019 8:03 AM Latest Code Status on File Code Status Date Activated Date Inactivated Comments Full Code 11/30/2019 11:58 AM Full Code 11/20/2019 10:05 PM 11/30/2019 10:44 AM Full Code 01/25/2019 9:45 AM 11/20/2019 10:17 AM Documents on File Type Date Recorded Patient Ladder Operator Expl anation Advance Directives and Livin g Will 01/19/2020 7:36 AM Latest Code Status on File Code Status Date Activated Date Inactivated Comments Full Code 12/06/2019 5:27 PM Full Code 11/30/2019 11:58 AM 12/06/2019 5:23 PM Documents on File Type Date Recorded Patient Ladder Operator Expl anation Advance Directives and Livin g Will 01/19/2020 7:36 AM Latest Code Status on File Code Status Date Activated Date Inactivated Comments Full Code 12/06/2019 5:27 PM Full Code 11/30/2019 11:58 AM 12/06/2019 5:23 PM Full Code 11/20/2019 10:05 PM 11/30/2019 10:44 AM Full Code 01/25/2019 9:45 AM 11/20/2019 10:17 AM Documents on File Type Date Recorded Patient Ladder Operator Expl anation Advance Directives and Livin g Will 01/26/2020 7:36 AM Documents on File Type Date Recorded Patient Ladder Operator Expl anation Advance Directives and Livin g Will 01/26/2020 7:36 AM Documents on File Type Date Recorded Patient Ladder Operator Expl anation Advance Directives and Livin g Will 12/28/2019 7:56 AM Documents on File Type Date Recorded Patient Ladder Operator Expl anation Advance Directives and Livin g Will 12/28/2019 7:56 AM Documents on File Type Date Recorded Patient Ladder Operator Expl anation Advance Directives and Livin g Will 12/06/2019 5:50 PM Documents on File Type Date Recorded Patient Ladder Operator Expl anation Advance Directives and Livin g Will 02/09/2020 7:36 AM Documents on File Type Date Recorded Patient Ladder Operator Expl anation Advance Directives and Livin g Will 02/02/2020 7:36 AM Documents on File Type Date Recorded Patient Ladder Operator Expl anation Advance Directives and Livin g Will 02/02/2020 7:36 AM Documents on File Type Date Recorded Patient Ladder Operator Expl anation Advance Directives and Livin g Will 02/09/2020 7:36 AM Documents on File Type Date Recorded Patient Ladder Operator Expl anation Advance Directives and Livin g Will 02/16/2020 2:33 PM Documents on File Type Date Recorded Patient Ladder Operator Expl anation Advance Directives and Livin g Will 12/06/2019 5:50 PM Documents on File Type Date Recorded Patient Ladder Operator Expl anation Advance Directives and Livin g Will 12/21/2019 7:45 AM Documents on File Type Date Recorded Patient Ladder Operator Expl anation Advance Directives and Livin g Will 02/16/2020 2:33 PM Documents on File Type Date Recorded Patient Ladder Operator Expl anation Advance Directives and Livin g Will 12/21/2019 7:45 AM Documents on File Type Date Recorded Patient Ladder Operator Expl anation Advance Directives and Livin g Will 01/04/2020 7:56 AM Documents on File Type Date Recorded Patient Ladder Operator Expl anation Advance Directives and Livin g Will 01/05/2020 7:56 AM Documents on File Type Date Recorded Patient Ladder Operator Expl anation Advance Directives and Livin g Will 01/05/2020 7:56 AM Documents on File Type Date Recorded Patient Ladder Operator Expl anation Advance Directives and Livin g Will 01/12/2020 7:36 AM Documents on File Type Date Recorded Patient Ladder Operator Expl anation Advance Directives and Livin g Will 01/12/2020 7:36 AM Documents on File Type Date Recorded Patient Ladder Operator Expl anation Advance Directives and Livin g Will 02/23/2020 12:00 AM Documents on File Type Date Recorded Patient Ladder Operator Expl anation Advance Directives and Livin g Will 02/23/2020 12:00 AM Documents on File Type Date Recorded Patient Ladder Operator Expl anation Advance Directives and Livin g Will 03/01/2020 12:00 AM Documents on File Type Date Recorded Patient Ladder Operator Expl anation Advance Directives and Livin g Will 03/01/2020 12:00 AM Documents on File Type Date Recorded Patient Ladder Operator Expl anation Advance Directives and Livin g Will 03/15/2020 12:00 AM Documents on File Type Date Recorded Patient Ladder Operator Expl anation Advance Directives and Livin g Will 04/12/2020 12:00 AM Documents on File Type Date Recorded Patient Ladder Operator Expl anation Advance Directives and Livin g Will 04/26/2020 12:00 AM Documents on File Type Date Recorded Patient Ladder Operator Expl anation Advance Directives and Livin g Will 05/01/2020 11:06 AM Latest Code Status on File Code Status Date Activated Date Inactivated Comments Full Code 05/01/2020 10:30 PM Full Code 12/06/2019 5:27 PM 05/01/2020 11:06 AM Latest Code Status on File Code Status Date Activated Date Inactivated Comments Full Code 05/01/2020 10:30 PM 05/03/2020 5:43 PM Documents on File Type Date Recorded Patient Ladder Operator Expl anation Advance Directives and Livin g Will 05/10/2020 12:00 AM Latest Code Status on File Code Status Date Activated Date Inactivated Comments Full Code 05/01/2020 10:30 PM 05/03/2020 5:43 PM Full Code 12/06/2019 5:27 PM 05/01/2020 11:06 AM Documents on File Type Date Recorded Patient Ladder Operator Expl anation Advance Directives and Livin g Will 05/24/2020 12:00 AM Documents on File Type Date Recorded Patient Ladder Operator Expl anation Advance Directives and Livin g Will 06/07/2020 12:00 AM Documents on File Type Date Recorded Patient Ladder Operator Expl anation Advance Directives and Livin g Will 06/21/2020 12:00 AM Documents on File Type Date Recorded Patient Ladder Operator Expl anation Advance Directives and Livin g Will 07/05/2020 12:00 AM Documents on File Type Date Recorded Patient Ladder Operator Expl anation Advance Directives and Livin g Will 08/02/2020 12:00 AM Documents on File Type Date Recorded Patient Ladder Operator Expl anation Advance Directives and Livin g Will 08/09/2020 7:34 AM Documents on File Type Date Recorded Patient Ladder Operator Expl anation Advance Directives and Livin g Will 08/23/2020 7:34 AM Documents on File Type Date Recorded Patient Ladder Operator Expl anation Advance Directives and Livin g Will 09/06/2020 7:57 AM Documents on File Type Date Recorded Patient Ladder Operator Expl anation Advance Directives and Livin g Will 10/18/2020 7:11 AM Documents on File Type Date Recorded Patient Ladder Operator Expl anation Advance Directives and Livin g Will 07/27/2019 10:41 AM Documents on File Type Date Recorded Patient Ladder Operator Expl anation Advance Directives and Livin g Will 11/20/2019 10:17 AM Latest Code Status on File Code Status Date Activated Date Inactivated Comments Full Code 11/20/2019 10:05 PM Documents on File Type Date Recorded Patient Ladder Operator Expl anation Advance Directives and Livin g Will 02/14/2020 2:33 PM Documents on File Type Date Recorded Patient Ladder Operator Expl anation Advance Directives and Livin g Will 05/05/2019 12:55 PM Documents on File Type Date Recorded Patient Ladder Operator Expl anation Advance Directives and Livin g Will 04/21/2019 12:40 PM Documents on File Type Date Recorded Patient Ladder Operator Expl anation Advance Directives and Livin g Will 07/14/2019 12:53 PM Documents on File Type Date Recorded Patient Ladder Operator Expl anation Advance Directives and Livin g Will 04/28/2019 12:54 PM Documents on File Type Date Recorded Patient Ladder Operator Expl anation Advance Directives and Livin g Will 10/10/2019 1:31 PM Documents on File Type Date Recorded Patient Ladder Operator Expl anation Advance Directives and Livin g Will 08/24/2019 10:40 AM Documents on File Type Date Recorded Patient Ladder Operator Expl anation Advance Directives and Livin g Will 04/25/2021 9:21 AM Advance Directive Response Recorded Date/ Time Advance Directives No September 9:23am Living Will No October 02, 2 016 9:23am Power of Office Executive No October 02, 2016 9:23am Latest Code Status on File Date Activated Date Inactivated Comments 05/01/2020 10:30 PM 05/03/2020 5:43 PM Full Code Date Activated Date Inactivated Comments 12/06/2019 5:27 PM 05/01/2020 11:06 AM Full Code Date Activated Date Inactivated Comments 11/30/2019 11:58 AM 12/06/2019 5:23 PM Full Code Date Activated Date Inactivated Comments 11/20/2019 10:05 PM 11/30/2019 10:44 AM Full Code Date Activated Date Inactivated Comments 01/25/2019 9:45 AM 11/20/2019 10:17 AM Latest Code Status on File Code Status Date Activated Date Inactivated Comments Full Code 05/01/2020 10:30 PM 05/03/2020 5:43 PM Code Status History Code Status Date Activated Date Inactivated Comments Full Code 12/06/2019 5:27 PM 05/01/2020 11:06 AM Full Code 11/30/2019 11:58 AM 12/06/2019 5:23 PM Full Code 11/20/2019 10:05 PM 11/30/2019 10:44 AM Full Code 01/25/2019 9:45 AM 11/20/2019 10:17 AM Date Activated Date Inactivated Comments 05/01/2020 10:30 PM 05/03/2020 5:43 PM Date Activated Date Inactivated Comments 12/06/2019 5:27 PM 05/01/2020 11:06 AM Date Activated Date Inactivated Comments 11/30/2019 11:58 AM 12/06/2019 5:23 PM Date Activated Date Inactivated Comments 11/20/2019 10:05 PM 11/30/2019 10:44 AM Date Activated Date Inactivated Comments 01/25/2019 9:45 AM 11/20/2019 10:17 AM Date Activated Date Inactivated Comments 05/01/2020 10:30 PM 05/03/2020 5:43 PM Date Activated Date Inactivated Comments 12/06/2019 5:27 PM 05/01/2020 11:06 AM Date Activated Date Inactivated Comments 11/30/2019 11:58 AM 12/06/2019 5:23 PM Date Activated Date Inactivated Comments 11/20/2019 10:05 PM 11/30/2019 10:44 AM Date Activated Date Inactivated Comments 01/25/2019 9:45 AM 11/20/2019 10:17 AM Date Activated Date Inactivated Comments 06/23/2024 12:44 PM Date Activated Date Inactivated Comments 05/01/2020 10:30 PM 05/03/2020 5:43 PM Date Activated Date Inactivated Comments 12/06/2019 5:27 PM 05/01/2020 11:06 AM Date Activated Date Inactivated Comments 11/30/2019 11:58 AM 12/06/2019 5:23 PM Date Activated Date Inactivated Comments 11/20/2019 10:05 PM 11/30/2019 10:44 AM Date Activated Date Inactivated Comments 07/01/2024 10:10 PM Code Status r eflects patient's informed choice. Date Activated Date Inactivated Comments 06/23/2024 12:44 PM 06/30/2024 6:58 PM Date Activated Date Inactivated Comments 05/01/2020 10:30 PM 05/03/2020 5:43 PM Date Activated Date Inactivated Comments 12/06/2019 5:27 PM 05/01/2020 11:06 AM Date Activated Date Inactivated Comments 11/30/2019 11:58 AM 12/06/2019 5:23 PM Date Activated Date Inactivated Comments 07/01/2024 10:10 PM Code Status r eflects patient's informed choice. Date Activated Date Inactivated Comments 06/23/2024 12:44 PM 06/30/2024 6:58 PM Date Activated Date Inactivated Comments 05/01/2020 10:30 PM 05/03/2020 5:43 PM Date Activated Date Inactivated Comments 12/06/2019 5:27 PM 05/01/2020 11:06 AM Date Activated Date Inactivated Comments 11/30/2019 11:58 AM 12/06/2019 5:23 PM Advance Directive Response Recorded Date/ Time Living Will No October 02, 016 9:23am Do you have a Healthcare Power of Office Executive? 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) Diagnosis Diabetes due to underlying condition w oth skin comp ([facility])- Primary Preop testing Unspecified pre-operative examination Diagnosis 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)- Primary Foot ulcer with fat layer exposed, right (HCC) Diagnosis Foot ulcer with fat layer exposed, right (HCC)- Primary 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) Diagnosis 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)- Primary Foot ulcer with fat layer exposed, right (HCC) Diagnosis Foot ulcer with fat layer exposed, right (HCC)- Primary 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) Diagnosis Skin ulcer of right foot with fat layer exposed (HCC)- Primary Type 2 diabetes mellitus with diabetic autonomic neuropathy, with long-term current use of insulin (HCC) Diagnosis Skin ulcer of right foot with fat layer exposed (HCC)- Primary Type 2 diabetes mellitus with diabetic autonomic neuropathy, with long-term current use of insulin (HCC) 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) Diagnosis Skin ulcer of right foot with fat layer exposed (HCC)- Primary 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) Diagnosis Skin ulcer of right foot with fat layer exposed (HCC) Skin ulcer of lower leg, left, with fat layer exposed (HCC) Diagnosis Foot ulcer with fat layer exposed, right (HCC) Diagnosis Skin ulcer of right foot with fat layer exposed (HCC) Blister of left lower extremity, initial encounter Venous insufficiency Unspecified venous (peripheral) insufficiency Diagnosis Skin ulcer of right foot with fat layer exposed (HCC) Chronic ulcer of left leg with fat layer exposed (HCC) Diagnosis Foot ulcer with fat layer exposed, right (HCC) Chronic ulcer of left leg with fat layer exposed (HCC) Diagnosis Foot ulcer with fat layer exposed, right (HCC) 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) Diagnosis Pre-op testing Unspecified pre-operative examination Type 2 diabetes mellitus with hyperglycemia, without long-term current use of insulin (HCC) Diagnosis Other specified pre-operative examination Coronary artery disease, angina presence unspecified, unspecified vessel or lesion type, unspecified whether [place] or transplanted heart Diagnosis Chronic ulcer of left leg with fat layer exposed (HCC) 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) Dehiscence of wound of skin, initial encounter Diagnosis Skin ulcer of right foot with fat layer exposed (HCC) Venous insufficiency Unspecified venous (peripheral) insufficiency Type 2 diabetes mellitus with diabetic autonomic neuropathy, with long-term current use of insulin (HCC) Acute osteomyelitis (HCC) 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 Infection due to other gram-negative organisms in conditions classified elsewhere and of unspecified site Elevated sed rate Elevated sedimentation rate Elevated C-reactive protein (CRP) Diagnosis Dehiscence of operative wound, subsequent encounter Charcot's joint of right foot 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) Acute osteomyelitis (HCC) 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 Infection due to other gram-negative organisms in conditions classified elsewhere and of unspecified site Diagnosis Dehiscence of operative wound, subsequent encounter 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) Acute osteomyelitis (HCC) 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 Infection due to other gram-negative organisms in conditions classified elsewhere and of unspecified site Elevated sed rate Elevated sedimentation rate Elevated C-reactive protein (CRP) Type 2 diabetes mellitus with diabetic autonomic neuropathy, with long-term current use of insulin (HCC) Diagnosis Dehiscence of operative wound, subsequent encounter 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) Charcot's joint of right foot Retained orthopedic hardware Diagnosis Acute osteomyelitis (HCC) 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 Infection due to other gram-negative organisms in conditions classified elsewhere and of unspecified site Elevated sed rate Elevated sedimentation rate Elevated C-reactive protein (CRP) 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) Dehiscence of wound of skin, initial encounter Diagnosis Subacute osteomyelitis of right ankle (HCC) 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) Foot ulcer with fat layer exposed, right (HCC) 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 Infection due to other gram-negative organisms in conditions classified elsewhere and of unspecified site Cellulitis of right foot Morbid obesity (HCC) Morbid obesity JAYDEN (obstructive sleep apnea) Obstructive sleep apnea (adult) (pediatric) Mixed hyperlipidemia Diagnosis Dehiscence of operative wound, subsequent encounter 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) Charcot's joint of right foot Skin ulcer of right great toe with fat layer exposed ([facility]) Diagnosis Dehiscence of operative wound, subsequent encounter 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) Type 2 diabetes mellitus with diabetic autonomic neuropathy, with long-term current use of insulin ([facility]) Diagnosis Charcot's joint of foot, unspecified laterality Diabetes mellitus with Charcot's joint arthropathy ([facility]) Type 2 diabetes mellitus with diabetic autonomic neuropathy, with long-term current use of insulin ([facility]) Diagnosis Charcot's joint of foot, unspecified laterality Diabetes mellitus with Charcot's joint arthropathy ([facility]) Type 2 diabetes mellitus with diabetic autonomic neuropathy, with long-term current use of insulin ([facility]) Dehiscence of operative wound, subsequent encounter 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 Infection due to other gram-negative organisms in conditions classified elsewhere and of unspecified site Elevated sed rate Elevated sedimentation rate Elevated C-reactive protein (CRP) Acute osteomyelitis ([facility]) Diagnosis 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 Infection due to other gram-negative organisms in conditions classified elsewhere and of unspecified site S/P foot surgery, right 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) Foot ulcer with fat layer exposed, right (HCC) Subacute osteomyelitis of right ankle (HCC) Osteomyelitis (HCC) Unspecified osteomyelitis, site unspecified JAYDEN (obstructive sleep apnea) Obstructive sleep apnea (adult) (pediatric) Mixed hyperlipidemia Essential hypertension Unspecified essential hypertension Benign prostatic hyperplasia with urinary retention Diagnosis Charcot's joint of right foot Type 2 diabetes mellitus with diabetic autonomic neuropathy, with long-term current use of insulin ([facility]) Diagnosis Skin ulcer of right foot with fat layer exposed (HCC) Venous insufficiency Unspecified venous (peripheral) insufficiency Type 2 diabetes mellitus with diabetic autonomic neuropathy, with long-term current use of insulin ([facility]) Acute osteomyelitis (HCC) 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 Infection due to other gram-negative organisms in conditions classified elsewhere and of unspecified site Elevated sed rate Elevated sedimentation rate Elevated C-reactive protein (CRP) Diabetes mellitus with Charcot's joint arthropathy ([facility]) Diagnosis Foot ulcer with fat layer exposed, right (HCC) Dehiscence of incision, initial encounter Diabetes mellitus with Charcot's joint arthropathy ([facility]) Diagnosis Foot ulcer with fat layer exposed, right (HCC) Dehiscence of operative wound, subsequent encounter Diagnosis Foot ulcer with fat layer exposed, right (HCC) Dehiscence of operative wound, subsequent encounter Charcot's joint of right foot Diagnosis Foot ulcer with fat layer exposed, right (HCC) Dehiscence of operative wound, subsequent encounter Diabetes mellitus with Charcot's joint arthropathy ([facility]) Acute osteomyelitis (HCC) 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 Infection due to other gram-negative organisms in conditions classified elsewhere and of unspecified site Elevated sed rate Elevated sedimentation rate Elevated C-reactive protein (CRP) Charcot's joint of right foot Type 2 diabetes mellitus with diabetic autonomic neuropathy, with long-term current use of insulin ([facility]) Diagnosis Dehiscence of operative wound, subsequent encounter 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 Infection due to other gram-negative organisms in conditions classified elsewhere and of unspecified site Elevated sed rate Elevated sedimentation rate Elevated C-reactive protein (CRP) Acute osteomyelitis (HCC) Charcot's joint of right foot Diabetes mellitus with Charcot's joint arthropathy ([facility]) Diagnosis Dehiscence of operative wound, subsequent encounter Charcot's joint of right foot 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 Infection due to other gram-negative organisms in conditions classified elsewhere and of unspecified site Elevated sed rate Elevated sedimentation rate Elevated C-reactive protein (CRP) Acute osteomyelitis (HCC) Type 2 diabetes mellitus with diabetic autonomic neuropathy, with long-term current use of insulin ([facility]) Diagnosis 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 Infection due to other gram-negative organisms in conditions classified elsewhere and of unspecified site Acute osteomyelitis (HCC) S/P ankle arthrodesis Other postprocedural status IDDM (insulin dependent diabetes mellitus) ([facility]) 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) Cellulitis, unspecified cellulitis site Diagnosis Charcot's joint of right foot 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) 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 Infection due to other gram-negative organisms in conditions classified elsewhere and of unspecified site Elevated C-reactive protein (CRP) Elevated sed rate Elevated sedimentation rate Acute osteomyelitis (HCC) Diagnosis penitentiary (current) use of antibiotics- Primary Charcot's joint of right foot 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) 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 Infection due to other gram-negative organisms in conditions classified elsewhere and of unspecified site Elevated C-reactive protein (CRP) Elevated sed rate Elevated sedimentation rate Acute osteomyelitis (HCC) Diagnosis Chronic ulcer of right great toe, with unspecified severity (HCC)- Primary Charcot's joint of right foot Diagnosis Acute osteomyelitis (HCC)- Primary penitentiary (current) use of antibiotics Charcot's joint of right foot Chronic ulcer of right great toe, with unspecified severity (HCC) 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) 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 Infection due to other gram-negative organisms in conditions classified elsewhere and of unspecified site Elevated C-reactive protein (CRP) Elevated sed rate Elevated sedimentation rate Diagnosis Chronic ulcer of right great toe, with unspecified severity (HCC)- Primary 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) Diagnosis Charcot foot due to diabetes mellitus (HCC)- Primary Chronic ulcer of right great toe, with unspecified severity (HCC) Diagnosis Chronic ulcer of right great toe, with unspecified severity (HCC)- Primary Charcot foot due to diabetes mellitus (HCC) Diagnosis Chronic ulcer of right great toe, with unspecified severity (HCC)- Primary Charcot foot due to diabetes mellitus (HCC) 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) Acute osteomyelitis (HCC) penitentiary (current) use of antibiotics Diagnosis Chronic ulcer of right great toe, with unspecified severity (HCC)- Primary Charcot foot due to diabetes mellitus (HCC) 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) Acute osteomyelitis (HCC) intermediate designer (current) use of antibiotics Diagnosis penitentiary (current) use of antibiotics- Primary Chronic ulcer of right great toe, with unspecified severity (HCC) Charcot foot due to diabetes mellitus (HCC) Type 2 diabetes mellitus with diabetic autonomic neuropathy, with long-term current use of insulin ([facility]) Blister of right lower extremity, initial encounter Diagnosis Chronic ulcer of right great toe, with unspecified severity (HCC)- Primary Charcot foot due to diabetes mellitus (HCC) Acute osteomyelitis (HCC) penitentiary (current) use of antibiotics Elevated sed rate Elevated sedimentation rate Elevated C-reactive protein (CRP) 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 Infection due to other gram-negative organisms in conditions classified elsewhere and of unspecified site Diagnosis Closed nondisplaced transverse fracture of shaft of right tibia with routine healing, subsequent encounter- Primary Chronic ulcer of right great toe, with unspecified severity (HCC) Diagnosis Chronic ulcer of right great toe, with unspecified severity (HCC)- Primary Charcot foot due to diabetes mellitus ([facility]) Closed nondisplaced transverse fracture of shaft of right tibia with routine healing, subsequent encounter Diagnosis Chronic ulcer of right great toe, with unspecified severity (HCC)- Primary Charcot foot due to diabetes mellitus ([facility]) Closed nondisplaced transverse fracture of shaft of right tibia with routine healing, subsequent encounter Acute osteomyelitis (HCC) penitentiary (current) use of antibiotics Elevated sed rate Elevated sedimentation rate Elevated C-reactive protein (CRP) 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 Infection due to other gram-negative organisms in conditions classified elsewhere and of unspecified site Diagnosis Skin ulcer of right foot with fat layer exposed ([facility])- Primary Diabetes mellitus with Charcot's joint arthropathy ([facility]) Diagnosis Charcot foot due to diabetes mellitus (HCC)- Primary Closed nondisplaced transverse fracture of shaft of right tibia with routine healing, subsequent encounter Acute osteomyelitis (HCC) intermediate designer (current) use of antibiotics Elevated sed rate Elevated sedimentation rate Elevated C-reactive protein (CRP) Diagnosis Diabetes mellitus with Charcot's joint arthropathy ([facility]) Skin ulcer of right foot with necrosis of bone (HCC) Acute osteomyelitis (HCC) 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 Infection due to other gram-negative organisms in conditions classified elsewhere and of unspecified site Gram-negative infection IDDM (insulin dependent diabetes mellitus) (HCC) Right foot ulcer (HCC) Morbid obesity (HCC) Morbid obesity JAYDEN (obstructive sleep apnea) Obstructive sleep apnea (adult) (pediatric) Mixed hyperlipidemia Diagnosis Chronic ulcer of right great toe, with unspecified severity (HCC)- Primary Charcot foot due to diabetes mellitus (HCC) Acute osteomyelitis (HCC) penitentiary (current) use of antibiotics Elevated sed rate Elevated sedimentation rate Elevated C-reactive protein (CRP) 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 Infection due to other gram-negative organisms in conditions classified elsewhere and of unspecified site Closed nondisplaced transverse fracture of shaft of right tibia with routine healing, subsequent encounter Diagnosis Charcot's joint of ankle, right Diagnosis Charcot's joint of right foot Diagnosis Closed nondisplaced transverse fracture of shaft of right tibia with routine healing, subsequent encounter- Primary Charcot foot due to diabetes mellitus (HCC) Diagnosis Chronic ulcer of right great toe, with unspecified severity (HCC)- Primary Charcot foot due to diabetes mellitus (HCC) Pain and swelling of right ankle Right leg pain Pain in soft tissues of limb Closed nondisplaced transverse fracture of shaft of right tibia, initial encounter Diagnosis Skin ulcer of right foot with fat layer exposed (HCC)- Primary 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) Skin ulcer of right lower leg with fat layer exposed (HCC) Skin ulcer of lower leg, left, with fat layer exposed (HCC) Diagnosis Skin ulcer of right foot with fat layer exposed (HCC)- Primary Type 2 diabetes mellitus with diabetic autonomic neuropathy, with long-term current use of insulin (HCC) 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) Diagnosis Right foot ulcer, limited to breakdown of skin (HCC) Chronic osteomyelitis with draining sinus, right ankle and foot (HCC) Acquired hammer toe of right foot Diagnosis Acute osteomyelitis (HCC)- Primary Insulin dependent diabetes mellitus type IA (HCC) Type I (juvenile type) diabetes mellitus without mention of complication, not stated as uncontrolled 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 Infection due to other gram-negative organisms in conditions classified elsewhere and of unspecified site History of Present Illness * Nupur Davis DPM - 04/07/2019 3:26 PM EDT Associated Order(s): Wound Debridement Post-Procedure Diagnose(s): 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); Foot ulcer with fat layer exposed, right (HCC) Wound Care Debridement Timeout: Immediately prior to procedure a time out was called to verify the correct patient, procedure, equipment, support service tech and site/side marked as required Timeout performed: 04/07/2019 3:26 PM Debridement Procedure: Debridement Performed for Assessment: Remove devitalized tissue Performed by: Physician Debridement Type: Surgical Pain Control: N/A Level: Skin/Subcutaneous Tissue Pre-Debridement Values: Length (cm): 1.4 Width (cm): 1 Depth (cm): 0.3 Area (sq cm): 1.4 Volume (cm3): 0.42 Post Debridement Measurements: Length (cm): 1.4 Width (cm): 1 Depth (cm): 0.3 Area (sq cm): 1.4 Volume (cm3): 0.42 Percent Debrided: 100 Total Area Debrided (sq cm): 1.4 Tissue and other material debrided: Subcutaneous Devitalized tissue debrided: Slough and Fibrin Instrument: Curette Bleeding: Minimal Hemostasis Achieved: Pressure Procedural Pain: Insensate Post Procedural Pain: Insensate Response to Treatment: Procedure was tolerated wellAssociated Wounds: Wound (Outpatient Only) 03/31/19 Foot Anterior;Right;Plantar * Nupur Davis DPM - 04/07/2019 2:44 PM EDT HPI: Patient is a 58 y.o. male consulted to the Podiatry Service for left foot charcot ulceration. He follows with Dr. Robles in the office. He has left midfoot ulceration that started after wearing surgical shoe following hammertoe surgery. He feels well. Using medihoney for dressing changes daily. Minimal drainage. Never smoker. DM x years. A1c 8.5%. Past Medical, Surgical, Family, and Social histories reviewed and updated in [facility] along with medications and allergies. Review of Systems: Patient denies any additional gastrointestinal, hepatic, renal, pulmonary, cardiac, neurological, musculoskeletal, or psychological conditions. Objective: Vascular: Peripheral pulses are palpable at 2 out of 4 for the right dorsalis pedis pulse, 2 out of4 for the left dorsalis pedis pulse, 2 out of 4 the right posterior tibial pulse, 2 out of 4 for the left posterior tibial pulse. CFT is less than 3 seconds bilaterally. Skin temperature is warm to warm proximal to distal bilaterally. Lower extremity edema Trace is observed to the bilateral lower extremities. Neurological: Epicritic sensation is grossly absent bilateral via light touch. Babinski test is plantigrade bilaterally. Achilles reflex is present bilateral. Patient is able to follow 2-step commands. No gross motor deficit appreciated at this time bilateral lower extremities. Dermatologic: Integument is intact bilateral lower extremity with the exception of wound noted to right plantar foot. Wound is granular. See picture and description below. Toenails 1 through 5 are thickened, elongated, and dystrophic with pain on palpation. Webspaces 1-4 bilaterally are clean, dry,and intact. Wound (Outpatient Only) 03/31/19 Foot Anterior;Right;Plantar (Active) Wound Image 04/07/2019 2:40 PM Wound Length (cm) 1.4 cm 04/07/2019 2:40 PM Wound Width (cm) 1 cm 04/07/2019 2:40 PM Wound Depth (cm) 0.3 cm 04/07/2019 2:40 PM Wound Surface Area (cm^2) 1.4 cm^2 04/07/2019 2:40 PM Wound Volume (cm^3) 0.42 cm^3 04/07/2019 2:40 PM Area % Change 75 04/07/2019 2:40 PM Volume % Change 0 04/07/2019 2:40 PM Tunneling Maximum Distance (cm) 0 cm 04/07/2019 2:40 PM Tunneling Position (o'clock) 0 04/07/2019 2:40 PM Undermining Maximum Distance #1 (cm) 0 cm 04/07/2019 2:40 PM Undermining Starting Position (o'clock) 1 0 04/07/2019 2:40 PM Undermining Ending Position (o'clock) 1 0 04/07/2019 2:40 PM Wound Encounter Subsequent 04/07/2019 2:40 PM Wound Progress No change 04/07/2019 2:40 PM Drainage Amount Small 04/07/2019 2:40 PM Drainage Description Serosanguineous 04/07/2019 2:40 PM Odor None 04/07/2019 2:40 PM Wound Margin Not attached to wound base 04/07/2019 2:40 PM Adherent Yellow Slough % 1-25% 04/07/2019 2:40 PM Moist Yellow Slough % None 04/07/2019 2:40 PM Dry Black Eschar % None 04/07/2019 2:40 PM Moist Black Eschar % None 04/07/2019 2:40 PM Epithelialization % None 04/07/2019 2:40 PM Granulation % 76-100% 04/07/2019 2:40 PM Exposed Structure None 04/07/2019 2:40 PM Wound Bed Characteristics Red;Yellow 04/07/2019 2:40 PM Angeli-wound Assessment Callus;Maceration 04/07/2019 2:40 PM Cleansed Soap and water 04/07/2019 2:40 PM Primary Dressing Collagen with silver 03/31/2019 1:35 PM Secondary Dressing Gauze roll;Gauze pad;Dry gauze dressing;Foam 03/31/2019 1:35 PM Compression Dressing Tubilar eleastic bandage 03/31/2019 1:35 PM Musculoskeletal: Range of motion of the lower extremity at the ankle is diminished range of motion.Muscle strength is 4/5 for all muscle groups. Charcot with rocker bottom right foot, plantargrade left foot. Imaging: IMPRESSION: 1. Charcot foot with advanced deformity of the mid aspect of the right foot. 2. No obvious acute fracture is noted. [id number] soft tissue swelling and other degenerative changes noted. Labs: Lab Results Component Value Date HGBA1C 8.5 (H) 01/20/2019 Lab Results Component Value Date WBC 4.61 01/20/2019 Assessment: SNOMED CT(R) 1. 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) DIABETES MELLITUS 2. Foot ulcer with fat layer exposed, right (HCC) ULCER OF FOOT Plan: Pt examined and evaluated Increased maceration Will remove CAM at home and at rest to air out Radiographs reviewed, significant collapse Will begin conservative therapy with local wound care, if no improvement may need repeat planing to remove prominent plantar bone Debridement of wound, see attached note Start kb and DSD, pt to change at home Follow up in 1 weeks. Nupur Davis DPM documented in this encounter* Nupur Davis DPM - 04/14/2019 4:04 PM EDT Associated Order(s): Wound Debridement Post-Procedure Diagnose(s): Foot ulcer with fat layer exposed, right (HCC); 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) Wound Care Debridement Timeout: Verbal Consent obtained?: Yes Written Consent obtained?: No Consent given by: Patient Immediately prior to procedure a time out was called to verify the correct patient, procedure, equipment, support service tech and site/side marked as required Timeout performed: 04/14/2019 4:04 PM Debridement Procedure: Debridement Performed for Assessment: Remove devitalized tissue Performed by: Physician Debridement Type: Surgical Pain Control: N/A Level: Skin/Subcutaneous Tissue Pre-Debridement Values: Length (cm): 1.2 Width (cm): 1 Depth (cm): 0.2 Area (sq cm): 1.2 Volume (cm3): 0.24 Post Debridement Measurements: Length (cm): 1.2 Width (cm): 1 Depth (cm): 0.2 Area (sq cm): 1.2 Volume (cm3): 0.24 Percent Debrided: 100 Total Area Debrided (sq cm): 1.2 Tissue and other material debrided: Subcutaneous Devitalized tissue debrided: Slough and Fibrin Instrument: Curette Bleeding: Minimal Hemostasis Achieved: Pressure Procedural Pain: Insensate Post Procedural Pain: Insensate Response to Treatment: Procedure was tolerated wellAssociated Wounds: Wound (Outpatient Only) 03/31/19 Foot Anterior;Right;Plantar * Nupur Davis DPM - 04/14/2019 2:09 PM EDT HPI: Patient is a 58 y.o. male consulted to the Podiatry Service for left foot charcot ulceration. He follows with Dr. Robles in the office. He has left midfoot ulceration that started after wearing surgical shoe following hammertoe surgery. He feels well. Using medihoney for dressing changes daily. Minimal drainage. Never smoker. DM x years. A1c 8.5%. RLE edema. Taking lasix. Past Medical, Surgical, Family, and Social histories reviewed and updated in [facility] along with medications and allergies. Review of Systems: Patient denies any additional gastrointestinal, hepatic, renal, pulmonary, cardiac, neurological, musculoskeletal, or psychological conditions. Objective: Vascular: Peripheral pulses are palpable at 2 out of 4 for the right dorsalis pedis pulse, 2 out of4 for the left dorsalis pedis pulse, 2 out of 4 the right posterior tibial pulse, 2 out of 4 for the left posterior tibial pulse. CFT is less than 3 seconds bilaterally. Skin temperature is warm to warm proximal to distal bilaterally. Lower extremity edema Trace is observed to the bilateral lower extremities. Neurological: Epicritic sensation is grossly absent bilateral via light touch. Babinski test is plantigrade bilaterally. Achilles reflex is present bilateral. Patient is able to follow 2-step commands. No gross motor deficit appreciated at this time bilateral lower extremities. Dermatologic: Integument is intact bilateral lower extremity with the exception of wound noted to right plantar foot. Wound is granular. See picture and description below. Toenails 1 through 5 are thickened, elongated, and dystrophic with pain on palpation. Webspaces 1-4 bilaterally are clean, dry,and intact. Wound (Outpatient Only) 03/31/19 Foot Anterior;Right;Plantar (Active) Wound Image 04/14/2019 1:50 PM Wound Length (cm) 1.2 cm 04/14/2019 1:50 PM Wound Width (cm) 1 cm 04/14/2019 1:50 PM Wound Depth (cm) 0.2 cm 04/14/2019 1:50 PM Wound Surface Area (cm^2) 1.2 cm^2 04/14/2019 1:50 PM Wound Volume (cm^3) 0.24 cm^3 04/14/2019 1:50 PM Area % Change -14.29 04/14/2019 1:50 PM Volume % Change -119.05 04/14/2019 1:50 PM Tunneling Maximum Distance (cm) 0 cm 04/07/2019 2:40 PM Tunneling Position (o'clock) 0 04/07/2019 2:40 PM Undermining Maximum Distance #1 (cm) 0 cm 04/07/2019 2:40 PM Undermining Starting Position (o'clock) 1 0 04/07/2019 2:40 PM Undermining Ending Position (o'clock) 1 0 04/07/2019 2:40 PM Wound Encounter Subsequent 04/07/2019 2:40 PM Wound Progress No change 04/07/2019 2:40 PM Drainage Amount Small 04/07/2019 2:40 PM Drainage Description Serosanguineous 04/07/2019 2:40 PM Odor None 04/07/2019 2:40 PM Wound Margin Not attached to wound base 04/07/2019 2:40 PM Adherent Yellow Slough % 1-25% 04/07/2019 2:40 PM Moist Yellow Slough % None 04/07/2019 2:40 PM Dry Black Eschar % None 04/07/2019 2:40 PM Moist Black Eschar % None 04/07/2019 2:40 PM Epithelialization % None 04/07/2019 2:40 PM Granulation % 76-100% 04/07/2019 2:40 PM Exposed Structure None 04/07/2019 2:40 PM Wound Bed Characteristics Red;Yellow 04/07/2019 2:40 PM Angeli-wound Assessment Callus;Maceration 04/07/2019 2:40 PM Cleansed Soap and water 04/07/2019 2:40 PM Primary Dressing Silver dressing 04/07/2019 2:40 PM Secondary Dressing Gauze roll;Gauze pad 04/07/2019 2:40 PM Compression Dressing Tubilar eleastic bandage 03/31/2019 1:35 PM Musculoskeletal: Range of motion of the lower extremity at the ankle is diminished range of motion.Muscle strength is 4/5 for all muscle groups. Charcot with rocker bottom right foot, plantargrade left foot. Imaging: IMPRESSION: 1. Charcot foot with advanced deformity of the mid aspect of the right foot. 2. No obvious acute fracture is noted. [id number] soft tissue swelling and other degenerative changes noted. Labs: Lab Results Component Value Date HGBA1C 8.5 (H) 01/20/2019 Lab Results Component Value Date WBC 4.61 01/20/2019 Assessment: SNOMED CT(R) 1. Foot ulcer with fat layer exposed, right (HCC) ULCER OF FOOT 2. 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) DIABETES MELLITUS Plan: Pt examined and evaluated Increased maceration Will remove CAM at home and at rest to air out Radiographs reviewed only, significant collapse Will begin conservative therapy with local wound care, if no improvement may need repeat planing to remove prominent plantar bone Debridement of wound, see attached note Has history of CABG, told to take lasix when legs swell, taking now Will weigh himself daily Using protein suppplements Start betadine wet to dry daily, pt to change at home Follow up in 1 weeks. Nupur Davis DPM documented in this encounter* Nupur Davis DPM - 04/28/2019 1:32 PM EDT HPI: Patient is a 58 y.o. male consulted to the Podiatry Service for left foot charcot ulceration. He follows with Dr. Robles in the office. He has left midfoot ulceration that started after wearing surgical shoe following hammertoe surgery. He feels well. Using medihoney for dressing changes daily. Minimal drainage. Never smoker. DM x years. A1c 8.5%. RLE edema. Taking lasix. Past Medical, Surgical, Family, and Social histories reviewed and updated in [facility] along with medications and allergies. Review of Systems: Patient denies any additional gastrointestinal, hepatic, renal, pulmonary, cardiac, neurological, musculoskeletal, or psychological conditions. Objective: Vascular: Peripheral pulses are palpable at 2 out of 4 for the right dorsalis pedis pulse, 2 out of4 for the left dorsalis pedis pulse, 2 out of 4 the right posterior tibial pulse, 2 out of 4 for the left posterior tibial pulse. CFT is less than 3 seconds bilaterally. Skin temperature is warm to warm proximal to distal bilaterally. Lower extremity edema Trace is observed to the bilateral lower extremities. Neurological: Epicritic sensation is grossly absent bilateral via light touch. Babinski test is plantigrade bilaterally. Achilles reflex is present bilateral. Patient is able to follow 2-step commands. No gross motor deficit appreciated at this time bilateral lower extremities. Dermatologic: Integument is intact bilateral lower extremity with the exception of wound noted to right plantar foot. Wound is granular. See picture and description below. Maceration angeli wound. Toenails 1 through 5 are thickened, elongated, and dystrophic with pain on palpation. Webspaces 1-4 bilaterally are clean, dry, and intact. Wound (Outpatient Only) 03/31/19 Foot Anterior;Right;Plantar (Active) Wound Image 04/28/2019 1:11 PM Wound Length (cm) 1.5 cm 04/28/2019 1:11 PM Wound Width (cm) 1.6 cm 04/28/2019 1:11 PM Wound Depth (cm) 0.2 cm 04/28/2019 1:11 PM Wound Surface Area (cm^2) 2.4 cm^2 04/28/2019 1:11 PM Wound Volume (cm^3) 0.48 cm^3 04/28/2019 1:11 PM Area % Change 0 04/28/2019 1:11 PM Volume % Change -100 04/28/2019 1:11 PM Tunneling Maximum Distance (cm) 0 cm 04/28/2019 1:11 PM Tunneling Position (o'clock) 0 04/28/2019 1:11 PM Undermining Maximum Distance #1 (cm) 0 cm 04/28/2019 1:11 PM Undermining Starting Position (o'clock) 1 0 04/28/2019 1:11 PM Undermining Ending Position (o'clock) 1 0 04/28/2019 1:11 PM Wound Encounter Subsequent 04/28/2019 1:11 PM Wound Progress No change 04/28/2019 1:11 PM Drainage Amount Small 04/28/2019 1:11 PM Drainage Description Serosanguineous 04/28/2019 1:11 PM Odor None 04/28/2019 1:11 PM Wound Margin Attached to wound base 04/28/2019 1:11 PM Adherent Yellow Slough % None 04/28/2019 1:11 PM Moist Yellow Slough % None 04/28/2019 1:11 PM Dry Black Eschar % None 04/28/2019 1:11 PM Moist Black Eschar % None 04/28/2019 1:11 PM Epithelialization % None 04/28/2019 1:11 PM Granulation % 76-100%;Bright red 04/28/2019 1:11 PM Exposed Structure None 04/28/2019 1:11 PM Wound Bed Characteristics Granulation tissue 04/28/2019 1:11 PM Angeli-wound Assessment Callus 04/28/2019 1:11 PM Cleansed Soap and water 04/28/2019 1:11 PM Primary Dressing Betadine 04/21/2019 1:38 PM Secondary Dressing Gauze roll;Gauze pad 04/21/2019 1:38 PM Compression Dressing Tubilar eleastic bandage 04/21/2019 1:38 PM Musculoskeletal: Range of motion of the lower extremity at the ankle is diminished range of motion.Muscle strength is 4/5 for all muscle groups. Charcot with rocker bottom right foot, plantargrade left foot Imagin/28 IMPRESSION: 1. Charcot foot with advanced deformity of the mid aspect of the right foot. 2. No obvious acute fracture is noted. [id number] soft tissue swelling and other degenerative changes noted. 04/28 Pending Labs: Lab Results Component Value Date HGBA1C 8.5 (H) 01/20/2019 Lab Results Component Value Date WBC 4.61 01/20/2019 Assessment: SNOMED CT(R) 1. 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) DIABETES MELLITUS XR Foot Right 3+ Views (Standard) 2. Foot ulcer with fat layer exposed, right (HCC) ULCER OF FOOT XR Foot Right 3+ Views (Standard) Plan: Patient was examined and evaluated. Has continued worsening of midfoot ulceration after hammertoe repair Continued maceration Will remove CAM at home and at rest to air out Begin STRICT NWB Radiographs updated today He will transition care to Dr. Mora next week Has history of CABG, told to take lasix when legs swell, taking now and weighing himself daily Using protein suppplements Cont betadine wet to dry daily, pt to change at home Discussed failing conservative therapy Will consider surgical intervention Follow up in 1 weeks. Nupur Davis DPM documented in this encounter* Alena Mora DPM - 05/05/2019 6:03 PM EDT Associated Order(s): Wound Debridement Post-Procedure Diagnose(s): Foot ulcer with fat layer exposed, right (HCC); 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) Wound Care Debridement Timeout: Verbal Consent obtained?: Yes Written Consent obtained?: Yes Consent given by: Patient Immediately prior to procedure a time out was called to verify the correct patient, procedure, equipment, support service tech and site/side marked as required Debridement Procedure: Performed by: Physician Debridement Type: Surgical Pain Control: N/A Level: Skin/Subcutaneous Tissue Post Debridement Measurements: Length (cm): 2 Width (cm): 1.8 Depth (cm): 0.2 Area (sq cm): 3.6 Volume (cm3): 0.72 Percent Debrided: 100 Total Area Debrided (sq cm): 3.6 Tissue and other material debrided: Subcutaneous Devitalized tissue debrided: Slough and Biofilm Instrument: Curette and Nippers Bleeding: Minimal Hemostasis Achieved: Pressure Procedural Pain: Insensate Post Procedural Pain: Insensate Response to Treatment: Procedure was tolerated well * Alena Mora DPM - 05/05/2019 1:20 PM EDT HPI: Patient is a 58 y.o. male presents to the wound care center for follow-up evaluation and management to right foot plantar ulceration secondary to Charcot. He follows with Dr. Robles in the office. He has left midfoot ulceration that started after wearing surgical shoe following hammertoe surgery. States that he has been limiting his weightbearing, keeping his ulceration clean, and applying medihoney for dressing changes daily. Minimal drainage. Never smoker. DM x years. A1c 8.5%. Deniesfevers, chills, nausea, vomiting, chest pain, shortness of breath, or any other constitutional symptoms. Objective: Vascular: Peripheral pulses are palpable at 2 out of 4 for the right dorsalis pedis pulse, 2 out of4 for the left dorsalis pedis pulse, 2 out of 4 the right posterior tibial pulse, 2 out of 4 for the left posterior tibial pulse. CFT is less than 3 seconds bilaterally. Skin temperature is warm to warm proximal to distal bilaterally. Lower extremity edema Trace is observed to the bilateral lower extremities. Neurological: Epicritic sensation is grossly absent bilateral via light touch. Babinski test is plantigrade bilaterally. Achilles reflex is present bilateral. Patient is able to follow 2-step commands. No gross motor deficit appreciated at this time bilateral lower extremities. Dermatologic: Full-thickness ulceration noted to the plantar midfoot measuring 2.0 x 1.8 x 0.2 cm. A thick macerated border noted. Wound bed is granular. No periwound erythema, edema, drainage or anyacute signs of infection. Musculoskeletal: Range of motion of the lower extremity at the ankle is diminished. Muscle strengthis 4/5 for all muscle groups. Charcot with rocker bottom right foot, plantargrade left foot Radiographs reviewed noting 1. Charcot foot with advanced deformity of the mid aspect of the right foot. 2. No obvious acute fracture is noted. 3. [id number] soft tissue swelling and other degenerative changes noted. Labs: Lab Results Component Value Date HGBA1C 8.5 (H) 01/20/2019 Lab Results Component Value Date WBC 4.61 01/20/2019 Assessment: Full-thickness plantar ulceration, right foot Charcot neuroarthropathy Diabetes type 2 with peripheral neuropathy Plan: Patient was examined and evaluated. Discussed the etiology of Charcot neuroarthropathy. Discussed with patient in detail surgical options which would include application of circular static external fixator. We will discuss surgery in detail after obtaining MRI results. Debridement was performed today, see procedure note. At this time patient will continue betadine to wound macerated border, and meta honey to the wound bed. Patient is to limit weightbearing and to work on lowering his hemoglobin A1c with his PCP. Follow up in 2 weeks. Alena Mora DPM documented in this encounter* Alena Mora DPM - 05/31/2019 5:49 AM EDT HPI: Patient is a 58 y.o. male presents to the wound care center for follow-up evaluation and management to right foot plantar ulceration secondary to Charcot. He has right midfoot ulceration that started after wearing surgical shoe following hammertoe surgery. States that he has been limiting his weightbearing, keeping his ulceration clean, and applying medihoney for dressing changes daily. Minimal drainage. Never smoker. DM x years. A1c 8.5%. Denies fevers, chills, nausea, vomiting, chest pain, shortness of breath, or any other constitutional symptoms. Objective: Vascular: Peripheral pulses are palpable at 2 out of 4 for the right dorsalis pedis pulse, 2 out of4 for the left dorsalis pedis pulse, 2 out of 4 the right posterior tibial pulse, 2 out of 4 for the left posterior tibial pulse. CFT is less than 3 seconds bilaterally. Skin temperature is warm to warm proximal to distal bilaterally. Lower extremity edema Trace is observed to the bilateral lower extremities. Neurological: Epicritic sensation is grossly absent bilateral via light touch. Babinski test is plantigrade bilaterally. Achilles reflex is present bilateral. Patient is able to follow 2-step commands. No gross motor deficit appreciated at this time bilateral lower extremities. Dermatologic: Full-thickness ulceration noted to the plantar midfoot measuring 2.0 x 2.0 x 0.2 cm. The macerated border has resolved. Wound bed is granular. No periwound erythema, edema, drainage or any acute signs of infection. Musculoskeletal: Range of motion of the lower extremity at the ankle is diminished. Muscle strengthis 4/5 for all muscle groups. Charcot with rocker bottom right foot, plantargrade left foot Radiographs reviewed noting 1. Charcot foot with advanced deformity of the mid aspect of the right foot. 2. Full thicknesss ulceration, right foot Labs: Lab Results Component Value Date HGBA1C 8.5 (H) 01/20/2019 Lab Results Component Value Date WBC 4.61 01/20/2019 Assessment: Full-thickness plantar ulceration, right foot Charcot neuroarthropathy Diabetes type 2 with peripheral neuropathy Plan: Patient was examined and evaluated. Wound is stable. No signs of infection Debridement was performed today, see procedure note. At this time patient will continue betadine to wound macerated border, and meta honey to the wound bed. Patient is to limit weightbearing and to work on lowering his hemoglobin A1c with his PCP. Tentative plans for surgery in the next month pending medical clearance and preoperative testing Follow up in 1 week Alena Mora DPM * Alena Mora DPM - 05/31/2019 5:47 AM EDT Associated Order(s): Wound Debridement Post-Procedure Diagnose(s): Skin ulcer of right foot with fat layer exposed (HCC); Type 2 diabetes mellitus with diabetic autonomic neuropathy, with long- term current use of insulin (HCC) Wound Care Debridement Timeout: Verbal Consent obtained?: Yes Written Consent obtained?: Yes Consent given by: Patient Immediately prior to procedure a time out was called to verify the correct patient, procedure, equipment, support service tech and site/side marked as required Timeout performed: 05/30/2019 5:48 AM Debridement Procedure: Debridement Performed for Assessment: Right foot ulcer Performed by: Physician Debridement Type: Surgical Pain Control: N/A Level: Skin/Subcutaneous Tissue Post Debridement Measurements: Length (cm): 2 Width (cm): 2 Depth (cm): 0.3 Area (sq cm): 4 Volume (cm3): 1.2 Percent Debrided: 100 Total Area Debrided (sq cm): 4 Tissue and other material debrided: Subcutaneous Devitalized tissue debrided: Biofilm Instrument: Curette Bleeding: Minimal Hemostasis Achieved: Pressure Procedural Pain: Insensate Post Procedural Pain: Insensate Response to Treatment: Procedure was tolerated well * Marlen Marroquin LPN - 05/30/2019 2:46 PM EDT Next visit he will bring list of Insulin due to changes , not on med list . documented in this encounter* Alena Mora DPM - 06/13/2019 1:44 PM EDT Associated Order(s): Wound Debridement Post-Procedure Diagnose(s): Skin ulcer of right foot with fat layer exposed (HCC); Type 2 diabetes mellitus with diabetic autonomic neuropathy, with long- term current use of insulin (HCC); 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) Wound Care Debridement Timeout: Verbal Consent obtained?: Yes Written Consent obtained?: Yes Consent given by: Patient Immediately prior to procedure a time out was called to verify the correct patient, procedure, equipment, support service tech and site/side marked as required Debridement Procedure: Debridement Performed for Assessment: Right plantar foot Performed by: Physician Debridement Type: Surgical Pain Control: N/A Level: Skin/Subcutaneous Tissue Post Debridement Measurements: Length (cm): 1.8 Width (cm): 1.8 Depth (cm): 0.2 Area (sq cm): 3.24 Volume (cm3): 0.65 Percent Debrided: 100 Total Area Debrided (sq cm): 3.24 Tissue and other material debrided: Subcutaneous Devitalized tissue debrided: Biofilm, Slough and Exudate Instrument: Nippers Bleeding: Moderate Hemostasis Achieved: Pressure Procedural Pain: Insensate Post Procedural Pain: Insensate Response to Treatment: Procedure was tolerated well * Alena Mora, DPM - 06/13/2019 1:18 PM EDT HPI: Patient is a 58 y.o. male presents to the wound care center for follow-up evaluation and management to right foot plantar ulceration secondary to Charcot. He has right midfoot ulceration that started after wearing surgical shoe following hammertoe surgery. States that he has been limiting his weightbearing, keeping his ulceration clean, and applying medihoney for dressing changes daily. Minimal drainage. Never smoker. DM x years. A1c 8.5%. Denies fevers, chills, nausea, vomiting, chest pain, shortness of breath, or any other constitutional symptoms. Objective: Vascular: Peripheral pulses are palpable at 2 out of 4 for the right dorsalis pedis pulse, 2 out of4 for the left dorsalis pedis pulse, 2 out of 4 the right posterior tibial pulse, 2 out of 4 for the left posterior tibial pulse. CFT is less than 3 seconds bilaterally. Skin temperature is warm to warm proximal to distal bilaterally. Lower extremity edema Trace is observed to the bilateral lower extremities. Neurological: Epicritic sensation is grossly absent bilateral via light touch. Babinski test is plantigrade bilaterally. Achilles reflex is present bilateral. Patient is able to follow 2-step commands. No gross motor deficit appreciated at this time bilateral lower extremities. Dermatologic: Full-thickness ulceration noted to the plantar midfoot measuring 1.8 x 1.8 x 0.2 cm. The macerated border has resolved. Wound bed is granular. No periwound erythema, edema, drainage or any acute signs of infection. Musculoskeletal: Range of motion of the lower extremity at the ankle is diminished. Muscle strengthis 4/5 for all muscle groups. Charcot with rocker bottom right foot, plantargrade left foot Radiographs reviewed noting 1. Charcot foot with advanced deformity of the mid aspect of the right foot. 2. Full thicknesss ulceration, right foot Labs: Lab Results Component Value Date HGBA1C 8.5 (H) 01/20/2019 Lab Results Component Value Date WBC 4.61 01/20/2019 Assessment: Full-thickness plantar ulceration, right foot Charcot neuroarthropathy Diabetes type 2 with peripheral neuropathy Plan: Patient was examined and evaluated. Wound is stable. No signs of infection Debridement was performed today, see procedure note. At this time patient will continue betadine to wound macerated border, and meta honey to the wound bed. Patient is to limit weightbearing and to work on lowering his hemoglobin A1c with his PCP. Tentative plans for surgery in the next month pending medical clearance and preoperative testing Follow up in 2 weeks Alena Mora DPM documented in this encounter* Alena Mora DPM - 08/10/2019 11:54 PM EST Associated Order(s): Wound Debridement Post-Procedure Diagnose(s): Skin ulcer of right foot with fat layer exposed (HCC); 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) HPI: Patient is a 58 y.o. male presents to the wound care center for follow-up evaluation and management to right foot plantar ulceration secondary to Charcot. He has right midfoot ulceration that started after wearing surgical shoe following hammertoe surgery. States that he has been limiting his weightbearing, keeping his ulceration clean, and applying medihoney for dressing changes daily. Minimal drainage. Never smoker. DM x years. A1c 8.5%. Denies fevers, chills, nausea, vomiting, chest pain, shortness of breath, or any other constitutional symptoms. Objective: Vascular: Peripheral pulses are palpable at 2 out of 4 for the right dorsalis pedis pulse, 2 out of4 for the left dorsalis pedis pulse, 2 out of 4 the right posterior tibial pulse, 2 out of 4 for the left posterior tibial pulse. CFT is less than 3 seconds bilaterally. Skin temperature is warm to warm proximal to distal bilaterally. Lower extremity edema Trace is observed to the bilateral lower extremities. Neurological: Epicritic sensation is grossly absent bilateral via light touch. Babinski test is plantigrade bilaterally. Achilles reflex is present bilateral. Patient is able to follow 2-step commands. No gross motor deficit appreciated at this time bilateral lower extremities. Dermatologic: Full-thickness ulceration noted to the plantar midfoot measuring 1.0 x 0.8 x 0.2 cm. The macerated border has resolved. Wound bed is granular. No periwound erythema, edema, drainage or any acute signs of infection. Wound does not probe to bone. No cellulitis or lymphangitis. Musculoskeletal: Range of motion of the lower extremity at the ankle is diminished. Muscle strengthis 4/5 for all muscle groups. Charcot with rocker bottom right foot, plantargrade left foot Radiographs reviewed noting 1. Charcot foot with advanced deformity of the mid aspect of the right foot. 2. Full thicknesss ulceration, right foot Labs: Lab Results Component Value Date HGBA1C 8.5 (H) 01/20/2019 Lab Results Component Value Date WBC 4.61 01/20/2019 Assessment: Full-thickness plantar ulceration, right foot - Stable Charcot neuroarthropathy Diabetes type 2 with peripheral neuropathy Plan: Patient was examined and evaluated. Wound is stable. No signs of infection Debridement was performed today, see procedure note. At this time patient will continue betadine to wound macerated border if present, and meta honey tothe wound bed. Patient is to limit weightbearing and to work on lowering his hemoglobin A1c with his PCP. Tentative plans for surgery in the next few month pending medical clearance and preoperative testing Patient understands that he is at high risk for limb loss. Follow up in 2 weeks Alena Mora DPM Wound Care Debridement Timeout: Verbal Consent obtained?: Yes Written Consent obtained?: Yes Consent given by: Patient Immediately prior to procedure a time out was called to verify the correct patient, procedure, equipment, support service tech and site/side marked as required Debridement Procedure: Debridement Performed for Assessment: Right foot ulcer Performed by: Physician Debridement Type: Surgical Pain Control: N/A Level: Skin/Subcutaneous Tissue Post Debridement Measurements: Length (cm): 1.5 Width (cm): 1 Depth (cm): 0.2 Area (sq cm): 1.5 Volume (cm3): 0.3 Percent Debrided: 100 Total Area Debrided (sq cm): 1.5 Tissue and other material debrided: Subcutaneous Devitalized tissue debrided: Slough, Exudate and Biofilm Instrument: Curette Bleeding: Minimal Hemostasis Achieved: Pressure Procedural Pain: Insensate Post Procedural Pain: Insensate Response to Treatment: Procedure was tolerated well documented in this encounter* Alena Mora DPM - 08/30/2019 10:12 AM EST Associated Order(s): Wound Debridement Post-Procedure Diagnose(s): Skin ulcer of right foot with fat layer exposed (HCC) HPI: Patient is a 58 y.o. male presents to the wound care center for follow-up evaluation and management to right foot plantar ulceration secondary to Charcot. He has right midfoot ulceration that started after wearing surgical shoe following hammertoe surgery. States that he has been limiting his weightbearing, keeping his ulceration clean, and dry, while applying medihoney for dressing changes daily. Minimal drainage. Never smoker. DM x years. Denies fevers, chills, nausea, vomiting, chest pain, shortness of breath, or any other constitutional symptoms. Objective: Vascular: Peripheral pulses are palpable at 2 out of 4 for the right dorsalis pedis pulse, 2 out of4 for the left dorsalis pedis pulse, 2 out of 4 the right posterior tibial pulse, 2 out of 4 for the left posterior tibial pulse. CFT is less than 3 seconds bilaterally. Skin temperature is warm to warm proximal to distal bilaterally. +1 pitting edema noted to bilateral lower extremities Neurological: Gross sensation is intact. Protective sensation is absent bilaterally. Dermatologic: Full-thickness ulceration noted to the plantar midfoot measuring 0.5 x 0.5 x 0.2 cm the macerated border has resolved. Wound bed is granular. No periwound erythema, edema, drainage or any acute signs of infection. Wound does not probe to bone. No cellulitis or lymphangitis. Bilateral lower extremity wounds have resolved. A small scab ulceration noted at the medial proximal aspect ofthe left leg. Musculoskeletal: Range of motion of the lower extremity at the ankle is diminished. Muscle strengthis 4/5 for all muscle groups. Charcot with rocker bottom right foot, plantargrade left foot Assessment: Full-thickness plantar ulceration, right foot - Stable Bilateral lower extremity ulcerations have resolved Charcot neuroarthropathy Diabetes type 2 with peripheral neuropathy Plan: Patient was examined and evaluated. Right foot plantar wound is stable. No signs of infection Debridement was performed today, see procedure note. At this time patient will continue betadine to wound macerated border if present, and meta honey tothe wound bed. Patient is to limit weightbearing and to work on lowering his hemoglobin A1c with his PCP. Tentative plans for surgery in the next few month pending medical clearance and preoperative testing Patient understands that he is at high risk for limb loss. Follow up in 2 weeks Alena Mora DPM Wound Care Debridement Timeout: Verbal Consent obtained?: Yes Written Consent obtained?: Yes Consent given by: Patient Immediately prior to procedure a time out was called to verify the correct patient, procedure, equipment, support service tech and site/side marked as required Debridement Procedure: Debridement Performed for Assessment: Right plantar foot ulcer Performed by: Physician Debridement Type: Surgical Pain Control: N/A Level: Skin/Subcutaneous Tissue Post Debridement Measurements: Length (cm): 0.5 Width (cm): 0.5 Depth (cm): 0.2 Area (sq cm): 0.25 Volume (cm3): 0.05 Percent Debrided: 100 Total Area Debrided (sq cm): 0.25 Tissue and other material debrided: Subcutaneous Devitalized tissue debrided: Biofilm and Slough Instrument: Curette Bleeding: Minimal Hemostasis Achieved: Pressure Procedural Pain: Insensate Post Procedural Pain: Insensate Response to Treatment: Procedure was tolerated well documented in this encounter* Alena Mora DPM - 09/12/2019 2:04 PM EST Associated Order(s): Wound Debridement Post-Procedure Diagnose(s): Foot ulcer with fat layer exposed, right (HCC) HPI: Patient is a 58 y.o. male presents to the wound care center for follow-up evaluation and management to right foot plantar ulceration secondary to Charcot. He has right midfoot ulceration that started after wearing surgical shoe following hammertoe surgery. States that he has been limiting his weightbearing, keeping his ulceration clean, and dry, while applying medihoney for dressing changes daily. Minimal drainage. Never smoker. DM x years. Denies fevers, chills, nausea, vomiting, chest pain, shortness of breath, or any other constitutional symptoms. Objective: Vascular: Peripheral pulses are palpable at 2 out of 4 for the right dorsalis pedis pulse, 2 out of4 for the left dorsalis pedis pulse, 2 out of 4 the right posterior tibial pulse, 2 out of 4 for the left posterior tibial pulse. CFT is less than 3 seconds bilaterally. Skin temperature is warm to warm proximal to distal bilaterally. +1 pitting edema noted to bilateral lower extremities Neurological: Gross sensation is intact. Protective sensation is absent bilaterally. Dermatologic: Full-thickness ulceration noted to the plantar midfoot measuring 0.8 x0.5x 0.2 cm themacerated border has resolved. Wound bed is granular. No periwound erythema, edema, drainage or anyacute signs of infection. Wound does not probe to bone. No cellulitis or lymphangitis. Bilateral lower extremity wounds have resolved. A small scab ulceration noted at the medial proximal aspect of the left leg. Musculoskeletal: Range of motion of the lower extremity at the ankle is diminished. Muscle strengthis 4/5 for all muscle groups. Charcot with rocker bottom right foot, plantargrade left foot Assessment: Full-thickness plantar ulceration, right foot - Stable Bilateral lower extremity ulcerations have resolved Charcot neuroarthropathy Diabetes type 2 with peripheral neuropathy Plan: Patient was examined and evaluated. Right foot plantar wound is stable. No signs of infection Debridement was performed today, see procedure note. At this time patient will continue betadine to wound macerated border if present, and meta honey tothe wound bed. Patient is to limit weightbearing and to work on lowering his hemoglobin A1c with his PCP. Tentative plans for surgery in the next few month pending medical clearance and preoperative testing Patient understands that he is at high risk for limb loss. Follow up in 2 weeks Alena Mora DPM Wound Care Debridement Timeout: Verbal Consent obtained?: Yes Written Consent obtained?: Yes Consent given by: Patient Immediately prior to procedure a time out was called to verify the correct patient, procedure, equipment, support service tech and site/side marked as required Debridement Procedure: Debridement Performed for Assessment: Right foot Performed by: Physician Debridement Type: Surgical Pain Control: N/A Level: Skin/Subcutaneous Tissue Post Debridement Measurements: Length (cm): 0.8 Width (cm): 0.5 Depth (cm): 0.2 Area (sq cm): 0.4 Volume (cm3): 0.08 Percent Debrided: 100 Total Area Debrided (sq cm): 0.4 Tissue and other material debrided: Subcutaneous Devitalized tissue debrided: Biofilm, Slough and Callus Instrument: Curette Bleeding: Minimal Hemostasis Achieved: Pressure Procedural Pain: Insensate Post Procedural Pain: Insensate Response to Treatment: Procedure was tolerated well documented in this encounter* Alena Mora DPM - 09/19/2019 3:09 PM EST Associated Order(s): Wound Debridement Post-Procedure Diagnose(s): Skin ulcer of right foot with fat layer exposed (HCC) HPI: Patient is a 58 y.o. male presents to the wound care center for follow-up evaluation and management to right foot plantar ulceration secondary to Charcot. He has right midfoot ulceration that started after wearing surgical shoe following hammertoe surgery. States that he has been limiting his weightbearing, keeping his ulceration clean, and dry, while applying medihoney for dressing changes daily. Minimal drainage. Never smoker. DM x years. Denies fevers, chills, nausea, vomiting, chest pain, shortness of breath, or any other constitutional symptoms. Objective: Vascular: Peripheral pulses are palpable at 2 out of 4 for the right dorsalis pedis pulse, 2 out of4 for the left dorsalis pedis pulse, 2 out of 4 the right posterior tibial pulse, 2 out of 4 for the left posterior tibial pulse. CFT is less than 3 seconds bilaterally. Skin temperature is warm to warm proximal to distal bilaterally. +1 pitting edema noted to bilateral lower extremities Neurological: Gross sensation is intact. Protective sensation is absent bilaterally. Dermatologic: Full-thickness ulceration noted to the plantar midfoot measuring 0.5 x0.5x 0.2 cm themacerated border has resolved. Wound bed is granular. No periwound erythema, edema, drainage or anyacute signs of infection. Wound does not probe to bone. No cellulitis or lymphangitis. New partial thickness ulceration noted to the anterior left leg noted. No periwound erythema, edema, drainage orany acute signs of infection. Musculoskeletal: Range of motion of the lower extremity at the ankle is diminished. Muscle strengthis 4/5 for all muscle groups. Charcot with rocker bottom right foot, plantargrade left foot Assessment: Full-thickness plantar ulceration, right foot - Stable Partial-thickness ulceration, left leg Charcot neuroarthropathy Diabetes type 2 with peripheral neuropathy Venous insufficiency Plan: Patient was examined and evaluated. Right foot plantar wound is stable. No signs of infection Debridement was performed today, see procedure note. Regarding his left leg, explained to the patient that his ulceration is secondary to uncontrolled edema secondary to venous insufficiency. We will apply Kb and dry sterile dressing and an Unna boot to the left lower extremity. Patient is to limit weightbearing and to work on lowering his hemoglobin A1c with his PCP. Tentative plans for surgery in the next few month pending medical clearance and preoperative testing Patient understands that he is at high risk for limb loss. Follow up in 2 weeks Alena Mora DPM Wound Care Debridement Timeout: Verbal Consent obtained?: Yes Written Consent obtained?: Yes Consent given by: Patient Immediately prior to procedure a time out was called to verify the correct patient, procedure, equipment, support service tech and site/side marked as required Debridement Procedure: Debridement Performed for Assessment: Right foot Performed by: Physician Debridement Type: Surgical Pain Control: N/A Level: Skin/Subcutaneous Tissue Post Debridement Measurements: Length (cm): 0.5 Width (cm): 0.5 Depth (cm): 0.2 Area (sq cm): 0.2 Volume (cm3): 0.04 Percent Debrided: 100 Total Area Debrided (sq cm): 0.2 Tissue and other material debrided: Subcutaneous Devitalized tissue debrided: Biofilm, Fibrin and Slough Instrument: Curette Bleeding: Minimal Hemostasis Achieved: Pressure Procedural Pain: Insensate Post Procedural Pain: Insensate Response to Treatment: Procedure was tolerated well * Lin Justice RN - 09/19/2019 2:42 PM EST Associated Order(s): Unna Boot Compression Dressing Post-Procedure Diagnose(s): Skin ulcer of right foot with fat layer exposed (HCC); Blister of left lower extremity, initial encounter Multi-layer Compression Wrap Procedure Performed for: LLE Performed by:: Clinician LLAE Procedural Pain: 0 Bandage Type: Compression Compression Layers: Multi-layer Compression Product Type: Unna boot Dressing Applied: No Extremity Location: Below Knee documented in this encounter* Alena Mora DPM - 10/04/2019 10:15 PM EST Associated Order(s): Wound Debridement; Wound Debridement Post-Procedure Diagnose(s): Skin ulcer of right foot with fat layer exposed (HCC); Chronic ulcer ofleft leg with fat layer exposed (HCC) HPI: Patient is a 58 y.o. male presents to the wound care center for follow-up evaluation and management to right foot plantar ulceration secondary to Charcot. He has right midfoot ulceration that started after wearing surgical shoe following hammertoe surgery. States that he has been limiting his weightbearing, keeping his ulceration clean, and dry, while applying medihoney for dressing changes daily. Minimal drainage. Recently he developed some left leg ulceration. Has been applying medihoneyand keeping it clean. Never smoker. DM x years. Denies fevers, chills, nausea, vomiting, chest pain, shortness of breath, or any other constitutional symptoms. Objective: Vascular: Peripheral pulses are palpable at 2 out of 4 for the right dorsalis pedis pulse, 2 out of4 for the left dorsalis pedis pulse, 2 out of 4 the right posterior tibial pulse, 2 out of 4 for the left posterior tibial pulse. CFT is less than 3 seconds bilaterally. Skin temperature is warm to warm proximal to distal bilaterally. +1 pitting edema noted to bilateral lower extremities Neurological: Gross sensation is intact. Protective sensation is absent bilaterally. Dermatologic: Full-thickness ulceration noted to the plantar midfoot measuring 0.5 x0.5x 0.2 cm themacerated border has resolved. Wound bed is granular. No periwound erythema, edema, drainage or anyacute signs of infection. Wound does not probe to bone. No cellulitis or lymphangitis. Full thickness ulceration noted to the anterior left leg noted measuring 7.0 x 3.0 x 0.2. No periwound erythema,edema, drainage or any acute signs of infection. Musculoskeletal: Range of motion of the lower extremity at the ankle is diminished. Muscle strengthis 4/5 for all muscle groups. Charcot with rocker bottom right foot, plantargrade left foot Assessment: Full-thickness plantar ulceration, right foot - Stable Fulll-thickness ulceration, left leg Charcot neuroarthropathy Diabetes type 2 with peripheral neuropathy Venous insufficiency Plan: Patient was examined and evaluated. Right foot plantar wound is stable. No signs of infection Debridement was performed today, see procedure note. Regarding his left leg, explained to the patient that his ulceration is secondary to uncontrolled edema secondary to venous insufficiency. We will apply Kb and dry sterile dressing to the left lower extremity. Patient is to limit weightbearing and to work on lowering his hemoglobin A1c with his PCP. Tentative plans for surgery in the next few month pending medical clearance and preoperative testing Patient understands that he is at high risk for limb loss. Follow up in 2 weeks Alena Mora DPM Wound Care Debridement Timeout: Verbal Consent obtained?: Yes Written Consent obtained?: Yes Immediately prior to procedure a time out was called to verify the correct patient, procedure, equipment, support service tech and site/side marked as required Debridement Procedure: Debridement Performed for Assessment: Right plantar foot Performed by: Physician Debridement Type: Surgical Pain Control: N/A Level: Skin/Subcutaneous Tissue Post Debridement Measurements: Length (cm): 0.5 Width (cm): 0.5 Depth (cm): 0.2 Area (sq cm): 0.25 Volume (cm3): 0.05 Percent Debrided: 100 Total Area Debrided (sq cm): 0.25 Devitalized tissue debrided: Biofilm, Callus and Slough Instrument: Curette Bleeding: Minimal Hemostasis Achieved: Pressure Procedural Pain: Insensate Post Procedural Pain: Insensate Response to Treatment: Procedure was tolerated well Wound Care Debridement Timeout: Verbal Consent obtained?: Yes Written Consent obtained?: Yes Consent given by: Patient Immediately prior to procedure a time out was called to verify the correct patient, procedure, equipment, support service tech and site/side marked as required Debridement Procedure: Debridement Performed for Assessment: Left leg Performed by: Physician Debridement Type: Surgical Pain Control: N/A Level: Skin/Subcutaneous Tissue Post Debridement Measurements: Length (cm): 7 Width (cm): 3 Depth (cm): 0.2 Area (sq cm): 21 Volume (cm3): 4.2 Percent Debrided: 100 Total Area Debrided (sq cm): 21 Tissue and other material debrided: Subcutaneous Devitalized tissue debrided: Slough, Biofilm and Callus Instrument: Curette Bleeding: Minimal Hemostasis Achieved: Pressure Procedural Pain: Insensate Post Procedural Pain: Insensate Response to Treatment: Procedure was tolerated well documented in this encounter* Alena Mora DPM - 10/24/2019 4:10 PM EST Associated Order(s): Wound Debridement; Wound Debridement Post-Procedure Diagnose(s): Foot ulcer with fat layer exposed, right (HCC); Chronic ulcer of left leg with fat layer exposed (HCC) HPI: Patient is a 58 y.o. male presents to the wound care center for follow-up evaluation and management to right foot plantar ulceration secondary to Charcot. He has right midfoot ulceration that started after wearing surgical shoe following hammertoe surgery. States that he has been limiting his weightbearing, keeping his ulceration clean, and dry, while applying medihoney for dressing changes daily. Minimal drainage. Recently he developed some left leg ulceration. Has been applying medihoneyand keeping it clean. Never smoker. DM x years. Denies fevers, chills, nausea, vomiting, chest pain, shortness of breath, or any other constitutional symptoms. Objective: Vascular: Peripheral pulses are palpable at 2 out of 4 for the right dorsalis pedis pulse, 2 out of4 for the left dorsalis pedis pulse, 2 out of 4 the right posterior tibial pulse, 2 out of 4 for the left posterior tibial pulse. CFT is less than 3 seconds bilaterally. Skin temperature is warm to warm proximal to distal bilaterally. +1 pitting edema noted to bilateral lower extremities Neurological: Gross sensation is intact. Protective sensation is absent bilaterally. Dermatologic: Full-thickness ulceration noted to the plantar midfoot measuring 0.5 x 0.5 x 0.2 cm the macerated border has resolved. Wound bed is granular. No periwound erythema, edema, drainage or any acute signs of infection. Wound does not probe to bone. No cellulitis or lymphangitis. Full thickness ulceration noted to the anterior left leg noted measuring 2.0 x 0.7 x 0.2 cm. No periwound erythema, edema, drainage or any acute signs of infection. Musculoskeletal: Range of motion of the lower extremity at the ankle is diminished. Muscle strengthis 4/5 for all muscle groups. Charcot with rocker bottom right foot, plantargrade left foot Assessment: Full-thickness plantar ulceration, right foot - Unchanged Fulll-thickness ulceration, left leg Charcot neuroarthropathy Diabetes type 2 with peripheral neuropathy Venous insufficiency Plan: Patient was examined and evaluated. Right foot plantar wound is stable. No signs of infection Debridement was performed today, see procedure note. Regarding his left leg, explained to the patient that his ulceration is secondary to uncontrolled edema secondary to venous insufficiency. We will apply Kb and dry sterile dressing to the left lower extremity. Applied medihoney sheet to right foot ulcer. Patient is to limit weightbearing and to work on lowering his hemoglobin A1c with his PCP. Tentative plans for surgery on Nov 20. Patient understands that he is at high risk for limb loss. Follow up in 2 weeks Alena Mora DPM Wound Care Debridement Timeout: Verbal Consent obtained?: Yes Written Consent obtained?: Yes Consent given by: Patient Immediately prior to procedure a time out was called to verify the correct patient, procedure, equipment, support service tech and site/side marked as required Debridement Procedure: Debridement Performed for Assessment: Right foot Performed by: Physician Debridement Type: Surgical Pain Control: N/A Level: Skin/Subcutaneous Tissue Post Debridement Measurements: Length (cm): 0.5 Width (cm): 0.5 Depth (cm): 0.2 Area (sq cm): 0.25 Volume (cm3): 0.05 Percent Debrided: 100 Total Area Debrided (sq cm): 0.25 Tissue and other material debrided: Subcutaneous Devitalized tissue debrided: Biofilm, Slough and Callus Instrument: Curette Bleeding: Minimal Hemostasis Achieved: Pressure Procedural Pain: Insensate Post Procedural Pain: Insensate Response to Treatment: Procedure was tolerated well Wound Care Debridement Timeout: Verbal Consent obtained?: Yes Written Consent obtained?: Yes Consent given by: Patient Immediately prior to procedure a time out was called to verify the correct patient, procedure, equipment, support service tech and site/side marked as required Debridement Procedure: Debridement Performed for Assessment: Left anterior leg Performed by: Physician Debridement Type: Surgical Pain Control: N/A Level: Skin/Subcutaneous Tissue Post Debridement Measurements: Length (cm): 2 Width (cm): 0.7 Depth (cm): 0.2 Area (sq cm): 1.4 Volume (cm3): 0.28 Percent Debrided: 100 Total Area Debrided (sq cm): 1.4 Tissue and other material debrided: Subcutaneous Devitalized tissue debrided: Biofilm and Slough Instrument: Curette Bleeding: Minimal Hemostasis Achieved: Pressure Procedural Pain: Insensate Post Procedural Pain: Insensate Response to Treatment: Procedure was tolerated well documented in this encounter* Alena Mora DPM - 11/10/2019 3:00 PM EST Associated Order(s): Wound Debridement Post-Procedure Diagnose(s): Foot ulcer with fat layer exposed, right (HCC); 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) HPI: Patient is a 59 y.o. male presents to the wound care center for follow-up evaluation and management to right foot plantar ulceration secondary to Charcot. He has right midfoot ulceration that started after wearing surgical shoe following hammertoe surgery. States that he has been limiting his weightbearing, keeping his ulceration clean, and dry, while applying medihoney for dressing changes daily. Patient states that he recently developed a blister on the plantar aspect of his right foot. Has been applying medihoney and keeping it clean. Never smoker. DM x years. Denies fevers, chills, nausea, vomiting, chest pain, shortness of breath, or any other constitutional symptoms. Objective: Vascular: Peripheral pulses are palpable at 2 out of 4 for the right dorsalis pedis pulse, 2 out of4 for the left dorsalis pedis pulse, 2 out of 4 the right posterior tibial pulse, 2 out of 4 for the left posterior tibial pulse. CFT is less than 3 seconds bilaterally. Skin temperature is warm to warm proximal to distal bilaterally. +1 pitting edema noted to bilateral lower extremities Neurological: Gross sensation is intact. Protective sensation is absent bilaterally. Dermatologic: Full-thickness ulceration noted to the plantar midfoot measuring 2.0 x 1.8 x 0.2 cm with a macerated border. Wound bed is granular. No periwound erythema, edema, drainage or any acute signs of infection. Wound does not probe to bone. No cellulitis or lymphangitis. Full thickness ulceration previously noted to the anterior left leg noted measuring 2.0 x 0.7 x 0.2 cm, has now closed. No periwound erythema, edema, drainage or any acute signs of infection. Musculoskeletal: Range of motion of the lower extremity at the ankle is diminished. Muscle strengthis 4/5 for all muscle groups. Charcot with rocker bottom right foot, plantargrade left foot Assessment: Full-thickness plantar ulceration, right foot - Worsening with a new blister Fulll-thickness ulceration, left leg - Resolved Charcot neuroarthropathy Diabetes type 2 with peripheral neuropathy Venous insufficiency Plan: Patient was examined and evaluated. Right foot plantar wound is stable. No signs of infection Debridement was performed today, see procedure note. We will apply Kb and dry sterile dressing to the right foot. Applied Bk and DSD to right foot ulcer. Patient is to limit weightbearing and to work on lowering his hemoglobin A1c with his PCP. Tentative plans for surgery on Nov 20. Patient understands that he is at high risk for limb loss. Alena Mora DPM Wound Care Debridement Timeout: Verbal Consent obtained?: Yes Written Consent obtained?: Yes Consent given by: Patient Immediately prior to procedure a time out was called to verify the correct patient, procedure, equipment, support service tech and site/side marked as required Debridement Procedure: Debridement Performed for Assessment: Right foot ulcer Performed by: Physician Debridement Type: Surgical Pain Control: N/A Level: Skin/Subcutaneous Tissue Post Debridement Measurements: Length (cm): 2 Width (cm): 1.8 Depth (cm): 0.2 Area (sq cm): 3.6 Volume (cm3): 0.72 Percent Debrided: 100 Total Area Debrided (sq cm): 3.6 Tissue and other material debrided: Subcutaneous Devitalized tissue debrided: Biofilm, Slough and Fibrin Instrument: Curette Bleeding: Minimal Hemostasis Achieved: Pressure and Silver Nitrate Procedural Pain: Insensate Post Procedural Pain: Insensate Response to Treatment: Procedure was tolerated well documented in this encounter* Alena Mora DPM - 11/30/2019 11:04 AM EST Subjective: Patient is a pleasant 59-year-old male who presents to the wound care center for his 1 week follow-up evaluation status post right midfoot wedge resection and application of external fixator for Charcot reconstruction (date of surgery 11/20/2019). Patient states that he has been doing well. He has been at a rehab facility and receiving IV antibiotics. Patient states that he has been nonweightbearing as instructed to the right lower extremity. He states that the nursing staff has been changing his dressing once every other day as instructed. No new pedal complaints.Denies fevers, chills, nausea, vomiting, chest pain, shortness of breath, or any other constitutional symptoms. Objective: Vascular: DP and PT pulses are palpable 2/4. Cap refill time is brisk to distal digits. Skin temperature is warm to warm from proximal tibial tuberosity to distal digits. +2 pitting edema noted to the right foot, worse than anticipated. Neuro: Gross sensation is intact. Protective sensation is absent. Dermatologic: The right foot plantar surgical incision site is completely macerated and dehisced centrally. In addition, there is serosanguineous drainage noted from the lateral right foot pain. Remaining pin sites are intact with some low-grade superficial pain and irritation. The external patientdevice is intact. No loosening of pins or wires noted. Musculoskeletal: Patient is able to wiggle digits. Compartments are soft and compressible. No calf pain. Assessment: 1 week status post right midfoot wedge resection and application of external fixator for Charcot reconstruction (Date of surgery 11/20/2019 -Dr. Mora). Partial dehiscence, right plantar foot Plan: Patient was seen and evaluated. Discussed all clinical findings. Patient does not recall any injury or trauma to why his incision site has dehisced. I obtain culture at the right plantar foot dehisced site. All 10 sites and wires were cleansed with one-to-one mixture of peroxide and alcohol. Applied Xeroform, dry sterile dressing, gauze to open and wire sites. Betadine soaked gauze was applied to the surgical incision site plantar foot. No debridement was performed today. Patient will be admitted for infection control and planning for irrigation and debridement of ulceration site tomorrow with possible need for adjustment of external fixator. N.p.o. at midnight. We will continue to monitor closely Please feel free to call with any questions or concerns, Alena Mora DPM [phone] documented in this encounter* Nelda Gilliam RN - 11/30/2019 10:04 AM EST Left leg has abrasions On the medial lower leg from the external fixator so we applied stockingetteand an zechariah wrap for Swelling and protection. Patient is being admitted today. LPapst RN * Maria Isabel Awad MD - 11/30/2019 8:00 AM EST 11/24/2019 Patient Name: Dyllan Huertas Admit Date: MR #: [id number] : 1960 Physicians: Rohit Aguilar MD (Family); No ref. provider found (Referring) Assessment and Plan: Impression Right foot ulcer Severe Charcot deformity status post surgical intervention Enterobacter cloaca infection and gram-negative infection see cultures below RaullTela which is a gram-negative Acute osteomyelitis bone culture on 11/20/2019+ for the same pathogen that was present in January 2019is Enterobacter cloaca pansensitive RAJINDER none on chart 11/24/2019 Osteomyelitis as bone culture is positive from 11/20/2019 11/30/2019 New drainage from the pin site Elevated sed rate Elevated CRP Osteomyelitis right foot Plan 11/30/2019 Culture the pin site that is bleeding and draining Follow-up CBC Liver function test Rocephin 2 g IV every 24 hours continue till December 18 May need to go up to additional 2 weeks afterDecember 18 which will be January 01 we will decide based on lab results and clinical response If the culture of the pin site shows any additional pathogens may need to readmit for additional IVantibiotics and streamlining treatment Revisit 1 week both I have discussed with podiatry 11/24/2019 PICC line placement Rocephin 2 g IV every 24 hours last dose will be December 18 which is 4 weeks total CBC CMP sed rate CRP as baseline and every week on Mondays Send results to Dr. Andrey Awad Will follow patient in the wound clinic with Dr. Mora on I have discussed with the patient as well as Dr. Mora Local care per Dr. Mora Follow-up every week on with myself and Dr. Mora at 8 AM May need to consider longer antibiotics including 2 additional weeks of IV or prolonged p.o. antibiotics for 2 additional months to complete 3 months of treatment I have discussed the patient as well as Dr. Mora Orders have been written given to perinatal social worker Will get a baseline chest x-ray and 2D echo in case we need to consider HBO treatment in the future Chest x-ray no infiltrate 2D echo with ejection fraction of 30% Chief Complaint/Reason for Visit: I am seeing this patient at the request of Dr. Estela MD. I have reviewed the current hospital record, available laboratory, cardiology and imaging studies as well as available out patient records. History of Present Illness: Admission H&P by Nancy Cueto CNP on 11/20/2019: Dyllan Huertas is a 59 y.o. y/o male presenting from OR with complaint of right foot wound. Patient was taken to surgery today for a right foot reconstruction with application of circular static external fixation. Patient has a chronic nonhealing ulceration on the plantar aspect of his right foot secondary to Charcot neuropathy osseous prominence. Patient has noted the wound for several months. The ulceration site failed to heal after several serial wound care debridement and management performance. No other pedal complaints. Patient does however have blisters tothe left lower extremity which are weeping, mild redness to the left lower extremity. Patient denies any fever, chills, nausea, vomiting, constipation, diarrhea, chest pain, palpitations, shortness of breath, urinary urgency or frequency. 11/23/2019 Elderly white male with diabetes on disability since 2014 related to a Charcot foot and diabetes developed an ulcer in the beginning of 2019 was being followed by Dr. Robles at the office we have cultures from last year in January with Enterobacter and since then culture with gram-negative bacteria also was seen by Dr. Mora was found to have severe Charcot a corrective surgery was done with placement of an external fixator and infectious disease consult regarding further with antibiotic management his MRI in mid 2018 did not show osteo-no current MRI available With positive cultures then and now same bacteria we will need to treat for persistent infection with at least 4 weeks of IV antibiotic Allergies no known allergies to antibiotic Personal history single does not smoke to the regular alcohol does not use any street drugs Family to nobody with boils his sister lives next to him can assist with care if needed Pets none Is known to have insulin-dependent diabetes He has plate and screws in the wrist and left toe Exam: Tmax: 98.3 Urine Output: 925 Stool: not recorded There were no vitals filed for this visit. Allergies: no known allergies. Current Outpatient Medications: aspirin 81 MG EC tablet, Take 2 (two) tablets (162 mg total) by mouth daily Start: 11/25/19., Disp:60 tablet, Rfl: 0 calcium carbonate 400 mg Chew, Chew and Swallow 1,000 mg daily ., Disp: , Rfl: carvediloL (COREG) 6.25 MG tablet, Take 2 (two) tablets (12.5 mg total) by mouth every 12 (twelve) hours ., Disp: 120 tablet, Rfl: 0 docusate sodium (COLACE) 100 MG capsule, Take 100 mg by mouth daily ., Disp: , Rfl: FENOFIBRATE MICRONIZED ORAL, Take 160 mg by mouth daily ., Disp: , Rfl: finasteride (PROSCAR) 5 mg tablet, Take 2.5 mg by mouth every night at bedtime Wednesday,WED,WED ., Disp: , Rfl: gabapentin (NEURONTIN) 300 MG capsule, gabapentin GABAPENTIN 300 MG CAPS One tablet by mouth daily GABAPENTIN [id number] Sebastián Dailey MD 06-15-2017 [facility] ([id number]), Disp: , Rfl: insulin glargine (LANTUS) 100 unit/mL (3 mL) InPn, Inject 50 Units under the skin nightly ., Disp: , Rfl: levothyroxine (SYNTHROID, LEVOTHROID) 112 MCG tablet, once daily ., Disp: , Rfl: lisinopril (PRINIVIL,ZESTRIL) 20 MG tablet, 20 mg 2 (two) times a day ., Disp: , Rfl: magnesium oxide (MAG-OX) 400 mg (241.3 mg magnesium) tablet, Take 400 mg by mouth daily ., Disp: , Rfl: melatonin 5 mg Tab, Take 10 mg by mouth daily ., Disp: , Rfl: metFORMIN (GLUCOPHAGE-XR) 500 MG 24 hr tablet, 1,000 mg 2 (two) times a day ., Disp: , Rfl: multivitamin (THERAGRAN) per tablet, Take 1 tablet by mouth daily ., Disp: , Rfl: NovoLIN R Regular U-100 Insuln 100 unit/mL injection, INJECT 50 UNITS SUBCUTANEOUSLY 3 TIMES DAILY WITH MEALS WITH ADDITIONAL PER SLIDING SCALE, Disp: , Rfl: rosuvastatin (CRESTOR) 20 MG tablet, 20 mg daily ., Disp: , Rfl: tamsulosin (FLOMAX) 0.4 mg capsule, tamsulosin TAMSULOSIN HCL 0.4 MG CAPS One tablet by mouth [id number] TAMSULOSIN HCL [id number] Sebastián Dailey MD 06-15-2017 [facility] ([id number]), Disp: , Rfl: PMH/PSH/SH/FH reviewed, no change except: Patient is receiving IV antibiotics in the hospital is pending transfer to [facility] on IV antibiotics Review of Systems: All systems were reviewed and negative except: No fevers no chills no diarrhea denies any pain in the right foot Medications Reviewed. Chart Reviewed. BP 133/68 Pulse 73 Temp 97.9 F (36.6 C) (Oral) Resp 18 SpO2 92% Exam Findings: Constitutional: HENT: Pupils reactive head: No oral candidiasis Eyes: No icterus Neck: Supple Cardiovascular: Heart S1-S2 2 by systolic murmur present no S3 Murmur Pulmonary/Chest: Clear Abdominal: Soft Musculoskeletal: No calf tenderness on the right leg Neurological: Has diabetic neuropathy with Charcot is able to wiggle the toes Skin: Left foot plantar ulcer area excised and closed that area has no drainage There is one pin site on the lateral aspect which had bleeding and some drainage blood-tinged Swelling of the right foot is less compared to previous pictures Patient being treated for osteomyelitis wound: Preop pictures from media reviewed The plantar wound had some purulence culture was done today by Dr. Abby Schulte: Bard Schulte catheter with clear urine IV: Midline placed in the right arm site looks good other: External fixator in place no drainage noted on the dressing Wound (Outpatient Only) 03/31/19 Foot Anterior;Right;Plantar (Active) Wound Image 11/30/2019 9:00 AM Wound Length (cm) 0.1 cm 11/10/2019 1:00 PM Wound Width (cm) 0.1 cm 11/10/2019 1:00 PM Wound Depth (cm) 0.2 cm 10/24/2019 1:00 PM Wound Surface Area (cm^2) 0.01 cm^2 11/10/2019 1:00 PM Wound Volume (cm^3) 0.01 cm^3 10/24/2019 1:00 PM Area % Change -75 11/10/2019 1:00 PM Volume % Change 0 11/10/2019 1:00 PM Tunneling Maximum Distance (cm) 0 cm 11/10/2019 1:00 PM Tunneling Position (o'clock) 0 11/10/2019 1:00 PM Undermining Maximum Distance (cm) 1 0 cm 11/10/2019 1:00 PM Undermining Starting Position (o'clock) 1 0 11/10/2019 1:00 PM Undermining Ending Position (o'clock) 1 0 11/10/2019 1:00 PM Wound Encounter Subsequent 11/10/2019 1:00 PM Wound Progress Deteriorating 11/10/2019 1:00 PM Non-staged Wound Description Partial thickness 11/10/2019 1:00 PM Drainage Amount Small 11/10/2019 1:00 PM Drainage Description Serosanguineous 11/10/2019 1:00 PM Odor None 11/10/2019 1:00 PM Wound Margin Attached to wound base 11/10/2019 1:00 PM Adherent Yellow Slough % None 11/10/2019 1:00 PM Moist Yellow Slough % None 11/10/2019 1:00 PM Dry Black Eschar % None 11/10/2019 1:00 PM Moist Black Eschar % None 11/10/2019 1:00 PM Epithelialization % 51-75% 11/10/2019 1:00 PM Granulation % 76-100%;[place] 11/10/2019 1:00 PM Exposed Structure None 11/10/2019 1:00 PM Wound Bed Characteristics Clean;Intact;Granulation tissue;[place] 11/10/2019 1:00 PM Angeli-wound Assessment Temperature WNL 11/10/2019 1:00 PM Treatments Not Applicable 10/24/2019 1:00 PM Hemostasis Silver nitrate sticks 11/10/2019 1:00 PM Cleansed Soap and water 11/10/2019 1:00 PM Primary Dressing Collagen with silver 11/10/2019 1:00 PM Secondary Dressing Foam;Gauze pad;Gauze roll 11/10/2019 1:00 PM Compression Dressing Tubilar eleastic bandage 11/10/2019 1:00 PM Wound 11/20/19 Surgical Wound Leg Right (Active) Wound Image 11/30/2019 9:00 AM I have personally reviewed the labs and results Test results Laboratory and Additional Data Reviewed: Date: 11/30/2019 No new labs/ results as of last note: 11/24/2019 Additional labs of 11/29/2019 glucose 108 BUN 36 creatinine 1.12 No CBC available in the computer from 11/29/2019 yet my nurse [facility] CMP not done any liver function test Hemoglobin A1c 11/27/2019 Component Ref Range & Units 2d ago 10mo ago Hemoglobin A1C 4.0 - 5.6 % 8.8High 8.5High CM Estimated Average Glucose 68 - 114 mg/dL 206High 197High CRP, Inflammation 11/27/2019 Component Ref Range & Units 2d ago CRP(Inflammation) <=10.0 mg/L 69.0High Sedimentation Rate 11/27/2019 Component Ref Range & Units 2d ago Sed Rate 0 - 20 mm/hr 94High Update from previous note: Current antibiotic: Rocephin 2 grams IV every 24 hours until 12/19/2019 Previous Antibiotics: Ancef 2,000 mg IV every 8 Hours Pre/Post Procedure Current Cultures: 11/21/2019 Left Leg Wound Aerobic Culture: Normal [place] After 24 Hours. Final. 11/20/2019 Right Foot Tissue Aerobic Culture: Moderate Growth Enterobacter cloacae complex, S=Youssef Sensitive. Final. 11/20/2019 Right Foot Tissue Anaerobic Culture: No Anaerobic Growth at 2 Days. Final. 11/20/2019 Right Foot Bone Aerobic Culture: Light Growth Enterobacter Cloacae Complex, S=Youssef Sensitive. Final. 11/20/2019 Right Foot Bone Anaerobic Culture: No Anaerobic Growth at 2 Days. Final. Recent Cultures: 05/30/2019 Right Foot Tissue Aerobic Culture: Normal Chalino After 48 Hours. Final. 05/30/2019 Right Foot Tissue Anaerobic Culture: No Anaerobic Growth at 2 Days. Final. 03/23/2019 Right Foot Wound Aerobic Culture: Heavy Growth Raoultella Planticola, R=Ampicillin, S=Remainder of panel. 03/09/2019 Right Foot Wound Aerobic Culture: Normal Chalino After 48 Hours. Final. 02/09/2019 Right Foot Wound Aerobic Culture: Normal Chalino After 48 Hours. Final. 01/19/2019 Right Toe Two Wound Aerobic Culture: Heavy Growth Enterobacter Cloacae Complex, S=Youssef Sensitive. Final. 11/24/2019 Current Antibiotics: Rocephin 2 gm IV every 24 Hours Previous Antibiotics: Ancef 2,000 mg IV every 8 Hours Pre/Post Procedure Labs: Chem 7 11/24/2019 03:39 Glucose: 112 BUN: 49 Creatinine: 1.64 Sodium: 142 Potassium: 4.5 CBC 11/24/2019 03:39 WBC: 6.02 Hgb: 10.1 Hct: 32.9 Platelets: 161 Lymphocytes Abs: 0.66 Magnesium 11/24/2019 03:39 2.1 Results from last 7 days Lab Units 11/23/19 0407 11/22/19 0449 11/21/19 0643 11/20/19 1035 SODIUM mmol/L 138 139 139 142 POTASSIUM mmol/L 4.6 4.2 4.9 4.4 CHLORIDE mmol/L 106 105 107 108 BUN mg/dL 35* 25 28* 24 CREATININE mg/dL 1.31* 1.20 1.38* 1.11 GLUCOSE mg/dL 111* 180* 229* 119* CALCIUM mg/dL -- -- 8.4 9.6 Results from last 7 days Lab Units 11/23/19 0407 11/22/19 0449 11/21/19 0643 WBC K/mcL 8.29 11.19* 8.73 HGB g/dL 9.9* 11.2* 11.7* HCT % 32.8* 35.9* 36.9* PLT K/mcL 132* 155 203 Current Cultures: 11/21/2019 Left Leg Wound Aerobic Culture: Normal Chalino After 24 Hours. Final. 11/20/2019 Right Foot Tissue Aerobic Culture: Moderate Growth Enterobacter cloacae complex, S=Youssef Sensitive. Final. 11/20/2019 Right Foot Tissue Anaerobic Culture: No Anaerobic Growth at 2 Days. Final. 11/20/2019 Right Foot Bone Aerobic Culture: Light Growth Enterobacter Cloacae Complex, S=Youssef Sensitive. Final. 11/20/2019 Right Foot Bone Anaerobic Culture: No Anaerobic Growth at 2 Days. Final. Recent Cultures: 05/30/2019 Right Foot Tissue Aerobic Culture: Normal Chalino After 48 Hours. Final. 05/30/2019 Right Foot Tissue Anaerobic Culture: No Anaerobic Growth at 2 Days. Final. 03/23/2019 Right Foot Wound Aerobic Culture: Heavy Growth Raoultella Planticola, R=Ampicillin, S=Remainder of panel. 03/09/2019 Right Foot Wound Aerobic Culture: Normal Chalino After 48 Hours. Final. 02/09/2019 Right Foot Wound Aerobic Culture: Normal Chalino After 48 Hours. Final. 01/19/2019 Right Toe Two Wound Aerobic Culture: Heavy Growth Enterobacter Cloacae Complex, S=Youssef Sensitive. Final. Radiology: Chest X-Ray 11/23/2019 1. Right arm PICC line in place with tip in superior vena cava. 2. No acute pulmonary disease. 3. Cardiomegaly with evidence of prior open heart surgery. 4. No acute osseous abnormality. Right Foot X-Ray 11/20/2019 IMPRESSION: Intraoperative fluoroscopy for localization during right foot and ankle reconstruction and fixation. Please see operative report for details. Left Ankle X-Ray Ordered 11/20/2019 Right Foot X-Ray 11/20/2019 FINDINGS: Two views of the right foot were obtained. There are advanced changes of Charcot arthropathy throughout the right midfoot which appears similar compared to prior examination. There are postsurgical changes of resection of the right 2nd toe proximal phalangeal head. IMPRESSION: 1. Advanced changes of Charcot arthropathy throughout the right midfoot which appear unchanged compared to prior examination. Chest AP/PA X-Ray 11/16/2019 1. No acute pulmonary disease. 2. Cardiomegaly, with evidence of prior open heart surgery. 3. Multilevel degenerative changes of the thoracic spine. MR Right Foot 05/19/2019 1. There is a superficial soft tissue ulcer again seen along the plantar aspect of the midfoot, butthere is no evidence of abscess or osteomyelitis in this region. 2. Stable appearance of the sequela of severe neuropathic arthropathy of the midfoot with collapse of the midfoot again seen resulting in a rocker bottom deformity. 3. A moderate amount of diffuse subcutaneous edema along the dorsum of the foot may be due to reactive edema or a cellulitis, but this is nonspecific. Right Foot X-Ray 04/28/2019 1. Soft tissue irregularity involving the plantar aspect of the foot likely representing the reported ulcer. No bony destruction to suggest osteomyelitis. 2. No evidence of radiopaque foreign body. 3. Stable deformity and degenerative changes involving the midfoot. Findings are consistent with Charcot joint. NM White Cell Scan Spot Limited 03/08/2017 FINDINGS: A focal area of intense abnormal white blood cell migration is noted central plantar aspect of the right foot corresponding to the area of the wound demonstrated radiographically. No other focus of white blood cell migration abnormality is evident within the right or left foot. IMPRESSION: Focal area of abnormal white blood cell migration at the plantar aspect central right foot may be at the wound itself or may be involving the bone with associated fracture as demonstrated radiographically. Anatomic detail is insufficient for differentiation between the two. Renal U/S 03/07/2017 IMPRESSION: Severe thickening of the urinary bladder wall. This could be due to outlet obstruction with hypertrophy of the wall. If there is no such history, this should be evaluated with cystoscopy. CVPS: Arterial Doppler: not on file Venous Doppler: not on file 2D Echo 11/23/2019 Moderate LV enlargement with LVH. Global systolic dysfunction with segmental features. LVEF 30% Elevated LV filling pressures RV is dilated with severe RV dysfunction Mild mitral annular calcification, mild thickening of the aortic valve without hemodynamically significant valvular disease There is a atrial level right to left shunt identified with saline contrast with free breathing andValsalva most likely via PFO LVEF unchanged from to previous echo from 2017 Surgeries: Please see above for surgical history Procedure: RIGHT FOOT RECONSTRUCTION WITH APPLICATION OF CIRCULAR STATIC EXTERNAL FIXATION Date: 11/20/2019 Surgeon: Alena Mora DPM Procedure in Detail: I saw the patient in the preoperative holding area and the operative site was marked. The patient was then brought to the operating room placed on the table in a supine position. A formal timeout wasperformed indicating the patient's name, date of , site/side and procedure to be performed. All parties were in agreement. A pneumatic ankle tourniquet was placed about the right/left ankle. Following IV sedation, local anesthesia was obtained about the right/left ankle utilizing a 1 1 mixtureof 1% lidocaine plain and 0.25% Marcaine plain. The foot was then scrubbed, prepped and draped in the usual aseptic manner. An Esmarch was then used to accentuate the patient's right/left foot and the tourniquet was inflated Upon completion of the procedure, the incision site was dressed with Xeroform, 4 x 4's, light Kerlix and dry sterile dressing.The tourniquet was then deflated and a prompt hyperemic response was noted to all digits of the right/left foot. An Zechariah bandage was applied to the right/left foot. I was present for the entirety of the surgery. The patient tolerated procedure and anesthesia well and was transferred to the PACU vital signs stable and vascular status intact to the right/left foot. Following a period of postoperative monitoring, the patient will be discharged home with instructions and prescriptions. Procedure: ARTHROPLASTY 2ND TOE RIGHT FOOT Date: 01/25/2019 Surgeon: Rosa M Robles DPM Pathology: not on file * Phoebe Duncan RN - 11/30/2019 8:00 AM EST Date: 11/30/2019 No new labs/ results as of last note: 11/24/2019 Hemoglobin A1c 11/27/2019 Component Ref Range & Units 2d ago 10mo ago Hemoglobin A1C 4.0 - 5.6 % 8.8High 8.5High CM Estimated Average Glucose 68 - 114 mg/dL 206High 197High CRP, Inflammation 11/27/2019 Component Ref Range & Units 2d ago CRP(Inflammation) <=10.0 mg/L 69.0High Sedimentation Rate 11/27/2019 Component Ref Range & Units 2d ago Sed Rate 0 - 20 mm/hr 94High Update from previous note: Current antibiotic: Rocephin 2 grams IV every 24 hours until 12/19/2019 Previous Antibiotics: Ancef 2,000 mg IV every 8 Hours Pre/Post Procedure Current Cultures: 11/21/2019 Left Leg Wound Aerobic Culture: Normal Chalino After 24 Hours. Final. 11/20/2019 Right Foot Tissue Aerobic Culture: Moderate Growth Enterobacter cloacae complex, S=Youssef Sensitive. Final. 11/20/2019 Right Foot Tissue Anaerobic Culture: No Anaerobic Growth at 2 Days. Final. 11/20/2019 Right Foot Bone Aerobic Culture: Light Growth Enterobacter Cloacae Complex, S=Youssef Sensitive. Final. 11/20/2019 Right Foot Bone Anaerobic Culture: No Anaerobic Growth at 2 Days. Final. Recent Cultures: 05/30/2019 Right Foot Tissue Aerobic Culture: Normal Chalino After 48 Hours. Final. 05/30/2019 Right Foot Tissue Anaerobic Culture: No Anaerobic Growth at 2 Days. Final. 03/23/2019 Right Foot Wound Aerobic Culture: Heavy Growth Raoultella Planticola, R=Ampicillin, S=Remainder of panel. 03/09/2019 Right Foot Wound Aerobic Culture: Normal Chalino After 48 Hours. Final. 02/09/2019 Right Foot Wound Aerobic Culture: Normal Chalino After 48 Hours. Final. 01/19/2019 Right Toe Two Wound Aerobic Culture: Heavy Growth Enterobacter Cloacae Complex, S=Youssef Sensitive. Final. documented in this encounter* Maria Isabel Awad MD - 01/19/2020 8:23 AM EDT 12/04/2019 Patient Name: Dyllan Huertas Admit Date: MR #: [id number] : 1960 Physicians: Rohit Aguilar MD (Family); No ref. provider found (Referring) Assessment and Plan: Impression Impression Right foot ulcer status post surgical intervention Severe Charcot deformity status post surgical intervention Enterobacter cloaca infection and gram-negative infection see cultures below RaullTela which is a gram-negative Acute osteomyelitis bone culture on 11/20/2019+ for the same pathogen that was present in January 2019is Enterobacter cloaca pansensitive RAJINDER none on chart 11/24/2019 Osteomyelitis as bone culture is positive from 11/20/2019 for Enterobacter cloaca 11/30/2019 New drainage from the pin site Elevated sed rate Elevated CRP Osteomyelitis right foot 12/01/2019 Osteomyelitis right foot Delayed healing of the plantar foot postop wound Cellulitis of the foot 12/04/2019 Status post surgical intervention with incision and drainage by Dr. Mora on 12/02/2019 cultures now with normal chalino AFB and fungus negative 12/05/2019 Sed rate 85 CRP 85 Per rehab physician there is a risk for the left ankle issues especially with diabetic neuropathy in the left foot and he has had right foot surgery 12/06/2019 OR cultures negative elevated CRP could be just postop We will continue IV antibiotics as planned till January 01 Rocephin 2 g every 24 hours 12/11/2019 Right foot wound with some maceration drainage 12/12/2019 CRP improving 12/21/2019 Patient is home now last night he was having difficulty flushing the line PICC line not functioning well because the picc team Plantar foot wound no cellulitis no maceration pin sites look excellent 2019 Right foot wound postop healing remarkably cellulitis improved Patient completing treatment for acute osteomyelitis Enterobacter infection Minimal drainage at the incision site will culture today January 12, 2020 Right second toe and great toe superficial ulceration present Right plantar foot wound excellent with almost healing no drainage no redness Sed rate 33 last CRP 6.4 12/28/2019 much better than before last culture normal chalino from December 27 January 19, 2020 Osteomyelitis right foot Charcot with correction surgery done Postop wound with delayed healing Plan January 19, 2020 Patient has received 6 weeks of IV antibiotics Followed by 2 weeks of oral antibiotic Will decrease doxycycline to 100 mg p.o. once a day Dressings per Dr. Mora Revisit next week I have discussed with Dr. Mora January 12, 2020 Discontinue PICC line was done on January 01 Discontinue IV meropenem Doxycycline 100 g p.o. twice daily for 2 months I will give 30 days with 1 refill Local dressings per Dr. Mora Revisit 2 weeks for me with Dr. Mora 12/28/2019 Meropenem 1 g IV twice daily till January 01 which will be 6 weeks of treatment Labs could not be drawn at home because of difficulty for peripheral draw I did not want him to drive from the line because of risk of clotting We will draw them here today After that we will give him doxycycline 100 mg p.o. twice daily for 6 weeks to make 3 months treatment 12/21/2019 IV meropenem 1 g twice daily till January 01 Picc team to evaluate the PICC line consider another midline if needed Revisit 3 weeks for me 12/18/2019 OPAT referral IV meropenem 1 g every 12 till January 01 Home IV antibiotic by [facility] Any dressing orders would be per Dr. Mora CBC CMP sed rate CRP every Wednesday12/14/2019 and 12/15/2019 Continue IV meropenem till January 01 if he can manage to do that Await a picture by podiatry upon dressing change today I have discussed with podiatry Will plan for CBC CMP sed rate CRP next week 12/12/2019 Patient tolerating the meropenem Will await Dr. Mora to check the dressing on the wound at her next rounds Discontinue Rocephin Start meropenem 1 g IV every 12 for the Enterobacter and the other gram-negative that he had seen in the cultures especially with the extensive surgery that was done and he had some drainage on the weekend Continue IV antibiotics till January 01 CBC CMP sed rate CRP Will discuss with Dr. Lopez and Dr. Mora 12/08/2019 Rocephin continued till January 01 Urinary retention to be evaluated by Dr. Lopez Will await for Dr. Mora to do the dressings 12/07/2019 Rocephin 2 g IV 24 hours till January 01 Discontinue Schulte catheter CBC CMP sed rate CRP on Wednesday12/06/2019 Rocephin 2 g to 24 hours till January 01 CBC CMP sed rate CRP periodically Transfer to rehab he has been accepted Will follow the patient in rehab with Dr. Lopez and Dr. Mora 12/05/2019 Rocephin 2 g IV 24 hours continue till January 01 because of the second surgery Elevated sed rate CRP will be followed Await transfer to rehab if approved and bed available 12/04/2019 Rocephin 2 g IV every 24 hours CBC CMP sed rate CRP Rehab referral with Dr. Lopez here if possible We will discuss with podiatry I have discussed with hospitalist OR cultures normal chalino negative AFB and fungus Blood cultures negative so far 12/01/2019 Continue Rocephin till further cultures available CBC CMP sed rate CRP Blood cultures x2 half an hour apart He did bleed well even in the wound clinic yesterday at some point will order arterial Dopplers I have discussed with podiatry at length 11/30/2019 Culture the pin site that is bleeding and draining Follow-up CBC Liver function test Rocephin 2 g IV every 24 hours continue till December 18 May need to go up to additional 2 weeks afterMar 17 which will be January 01 we will decide based on lab results and clinical response If the culture of the pin site shows any additional pathogens may need to readmit for additional IVantibiotics and streamlining treatment Revisit 1 week both I have discussed with podiatry Chief Complaint/Reason for Visit: I am seeing this patient at the request of Dr. Boogie Phan MD. I have reviewed the current hospital record, available laboratory, cardiology and imaging studies as well as available out patient records. History of Present Illness: Admission H&P by Boogie Phan MD on 11/30/2019: Dyllan Huertas is a 59 y.o. male presenting from home with h/o diabetes on disability since 2014 related to a Charcot foot and diabetes developed an ulcer in the beginning of 2019 was being followed by Dr. Robles at the office we have cultures from last year in January with Enterobacter and since then culture with gram-negative bacteria also was seen by Dr. Mora was found to have severe Charcot a corrective surgery was done with placement of an external fixator on 11/20. Today at wound clinic follow up was found to have increased drainage from one of the pin sites, being admitted for continued IV ATB and possible OR/ exploration in am. Exam: Tmax: 99 Urine Output: 2000 Stool: not recorded PACU Vitals 01/19/20 0815 BP: 110/67 Pulse: 89 Resp: 16 Temp: 97.6 F (36.4 C) Allergies: no known allergies. Current Outpatient Medications: alteplase (CATH AMANDO) 2 mg injection, Instill 2mL into clotted IV line as needed for brake liner. May repeat as needed. Do not use on Peripheral or Midlines ., Disp: 2 mL, Rfl: 52 calcium carbonate 400 mg Chew, Chew and Swallow 1,000 mg daily ., Disp: , Rfl: carvediloL (COREG) 12.5 MG tablet, Take 1 (one) tablet (12.5 mg total) by mouth 2 (two) times a day., Disp: 60 tablet, Rfl: 0 docusate sodium (COLACE) 100 MG capsule, Take 100 mg by mouth daily ., Disp: , Rfl: doxycycline hyclate (VIBRAMYCIN) 100 MG capsule, Take 1 (one) capsule (100 mg total) by mouth 2 (two) times a day Stay out of the sun. ., Disp: 60 capsule, Rfl: 1 FENOFIBRATE MICRONIZED ORAL, Take 160 mg by mouth daily ., Disp: , Rfl: finasteride (PROSCAR) 5 mg tablet, Take 2.5 mg by mouth every night at bedtime Wednesday,WED,WED ., Disp: , Rfl: gabapentin (NEURONTIN) 300 MG capsule, gabapentin GABAPENTIN 300 MG CAPS One tablet by mouth daily GABAPENTIN [id number] Sebastián Dailey MD 06-15-2017 [facility] ([id number]), Disp: , Rfl: heparin, porcine, PF, 100 unit/mL Syrg, For Open Ended Midline/PICC/CVC/Port: Flush with 5ml heparin as final flush after each use, weekly if not used. Use 3ml for Peripheral IV ., Disp: 100 Syringe,Rfl: 52 insulin NPH (HumuLIN,NovoLIN) 100 unit/mL injection, Take 30 units with breakfast, and 26 units at bedtime ., Disp: 20 mL, Rfl: 12 insulin regular (HumuLIN R, NovoLIN R) 100 unit/mL injection, Take 12 units three times daily before meals ., Disp: 20 mL, Rfl: 5 levothyroxine (SYNTHROID, LEVOTHROID) 112 MCG tablet, once daily ., Disp: , Rfl: magnesium oxide (MAG-OX) 400 mg (241.3 mg magnesium) tablet, Take 400 mg by mouth daily ., Disp: , Rfl: melatonin 5 mg Tab, Take 10 mg by mouth daily ., Disp: , Rfl: metFORMIN (GLUCOPHAGE-XR) 500 MG 24 hr tablet, 1,000 mg 2 (two) times a day ., Disp: , Rfl: multivitamin (THERAGRAN) per tablet, Take 1 tablet by mouth daily ., Disp: , Rfl: nitroGLYCERIN (NITROSTAT) 0.4 MG SL tablet, Place 1 (one) tablet (0.4 mg total) under the tongue every 5 (five) minutes as needed for chest pain , if no relief after 3 doses call 911 ., Disp: 90 tablet, Rfl: 12 psyllium (METAMUCIL) 3.4 gram packet, Take 1 (one) packet by mouth daily Start: 12/20/19., Disp: 30packet, Rfl: 0 rosuvastatin (CRESTOR) 20 MG tablet, 20 mg daily ., Disp: , Rfl: tamsulosin (FLOMAX) 0.4 mg capsule, tamsulosin TAMSULOSIN HCL 0.4 MG CAPS One tablet by mouth [id number] TAMSULOSIN HCL [id number] Sebastián Dailey MD 06-15-2017 [facility] ([id number]), Disp: , Rfl: PMH/PSH/SH/FH reviewed, no change except: Status post surgical intervention by Dr. Mora on 12/02/2019 12/05/2019 Patient was seen by rehab physician rehab evaluation in progress patient's left ankle is at risk because of right foot surgery and diabetic neuropathy in the left foot also 12/07/2019 patient is now in rehab Review of Systems: All systems were reviewed and negative except: Denies any fever chills no pain in the right leg and foot 12/06/2019 denies any fever chills or diarrhea 12/08/2019 Schulte had to be reinserted for urinary increase residual 12/11/2019 Dressing was changed by Dr. Mora on Wednesday there was some drainage culture was done there was some maceration culture result is normal chalino Dr. Mora's note was reviewed by me Medications Reviewed. Chart Reviewed. BP 110/67 Pulse 89 Temp 97.6 F (36.4 C) (Temporal) Resp 16 Exam Findings: Constitutional: HENT: Pupils reactive head: No oral candidiasis Eyes: No icterus Neck: Supple Cardiovascular: Heart S1-S2 2 by systolic murmur present no S3 Murmur Pulmonary/Chest: Clear Abdominal: Soft Musculoskeletal: No calf tenderness on the right leg Neurological: Has diabetic neuropathy with Charcot is able to wiggle the toes Skin no redness or cellulitis noted on the plantar foot area Schulte: Patient does have a Schulte catheter followed by urology January 02 Dr. Izquierdo the Schulte catheter was changed at the last visit IV: None other: External fixator in place no drainage noted on the dressing wound to be examined by podiatrytoday Pin sites without any bleeding The plantar foot wound looks excellent no cellulitis noted pin sites with no drainage the plantar foot wound looks almost healed up completely Zechariah bandage in place with no drainage Wound was debrided by Dr. Mora today no purulence noted Wound (Outpatient Only) 03/31/19 Foot Anterior;Right;Plantar (Active) Wound Image 01/19/2020 7:00 AM Wound Length (cm) 0.8 cm 01/19/2020 7:00 AM Wound Width (cm) 3 cm 01/19/2020 7:00 AM Wound Depth (cm) 0.5 cm 01/19/2020 7:00 AM Wound Surface Area (cm^2) 2.4 cm^2 01/19/2020 7:00 AM Wound Volume (cm^3) 1.2 cm^3 01/19/2020 7:00 AM Area % Change -40 01/19/2020 7:00 AM Volume % Change 0 01/19/2020 7:00 AM Tunneling Maximum Distance (cm) 0 cm 01/19/2020 7:00 AM Tunneling Position (o'clock) 0 01/19/2020 7:00 AM Undermining Maximum Distance (cm) 1 0 cm 01/19/2020 7:00 AM Undermining Starting Position (o'clock) 1 0 01/19/2020 7:00 AM Undermining Ending Position (o'clock) 1 0 01/19/2020 7:00 AM Wound Encounter Subsequent 01/19/2020 7:00 AM Wound Progress Improving 01/19/2020 7:00 AM Non-staged Wound Description Partial thickness 01/19/2020 7:00 AM Drainage Amount Scant 01/19/2020 7:00 AM Drainage Description Yellow 01/19/2020 7:00 AM Odor None 01/19/2020 7:00 AM Wound Margin Attached to wound base 01/19/2020 7:00 AM Adherent Yellow Slough % 1-25% 01/19/2020 7:00 AM Moist Yellow Slough % 1-25% 01/19/2020 7:00 AM Dry Black Eschar % None 01/19/2020 7:00 AM Moist Black Eschar % None 01/19/2020 7:00 AM Epithelialization % 51-75% 01/19/2020 7:00 AM Granulation % None;51-75%;[place] 01/19/2020 7:00 AM Exposed Structure None 01/19/2020 7:00 AM Wound Bed Characteristics Clean;Intact;Granulation tissue;[place] 01/19/2020 7:00 AM Angeli-wound Assessment Temperature WNL;Edema 01/19/2020 7:00 AM Treatments Not Applicable 01/19/2020 7:00 AM Hemostasis Not applicable 01/19/2020 7:00 AM Cleansed Soap and water 01/19/2020 7:00 AM Wound 12/14/19 Pressure Injury Great Toe;Toe Anterior;Right (Active) Wound Image 01/19/2020 7:00 AM Wound Length (cm) 0.8 cm 01/19/2020 7:00 AM Wound Width (cm) 1 cm 01/19/2020 7:00 AM Wound Surface Area (cm^2) 0.8 cm^2 01/19/2020 7:00 AM Area % Change -33.33 01/19/2020 7:00 AM Tunneling Maximum Distance (cm) 0 cm 01/19/2020 7:00 AM Tunneling Position (o'clock) 0 01/19/2020 7:00 AM Tunneling Maximum Distance (cm) 0 cm 01/19/2020 7:00 AM Tunneling Position (o'clock) 0 01/19/2020 7:00 AM Undermining Maximum Distance (cm) 1 0 cm 01/19/2020 7:00 AM Undermining Starting Position (o'clock) 1 0 01/19/2020 7:00 AM Undermining Ending Position (o'clock) 1 0 01/19/2020 7:00 AM Undermining Maximum Distance (cm) 2 0 cm 01/19/2020 7:00 AM Undermining Starting Position (o'clock) 2 0 01/19/2020 7:00 AM Undermining Ending Position (o'clock) 2 0 01/19/2020 7:00 AM Wound Progress Improving 01/19/2020 7:00 AM Non-staged Wound Description Eschar covered 01/19/2020 7:00 AM Drainage Amount None 01/19/2020 7:00 AM Odor None 01/19/2020 7:00 AM Adherent Yellow Slough % None 01/19/2020 7:00 AM Moist Yellow Slough % None 01/19/2020 7:00 AM Dry Black Eschar % 76-100% 01/19/2020 7:00 AM Moist Black Eschar % None 01/19/2020 7:00 AM Epithelialization % 1-25% 01/19/2020 7:00 AM Granulation % 76-100%;Bright red 01/19/2020 7:00 AM Exposed Structure None 01/19/2020 7:00 AM Wound Bed Characteristics Clean;Intact;Black 01/19/2020 7:00 AM Angeli-wound Assessment Temperature WNL 01/19/2020 7:00 AM Treatments Not Applicable 01/19/2020 7:00 AM Cleansed Soap and water 01/19/2020 7:00 AM Wound 01/12/20 3 Acute Abrasion(s) Third Toe Right;Medial (Active) Wound Image 01/19/2020 7:00 AM Wound Length (cm) 0.6 cm 01/19/2020 7:00 AM Wound Width (cm) 0.5 cm 01/19/2020 7:00 AM Wound Surface Area (cm^2) 0.3 cm^2 01/19/2020 7:00 AM Area % Change -66.67 01/19/2020 7:00 AM Tunneling Maximum Distance (cm) 0 cm 01/19/2020 7:00 AM Tunneling Position (o'clock) 0 01/19/2020 7:00 AM Tunneling Maximum Distance (cm) 0 cm 01/19/2020 7:00 AM Tunneling Position (o'clock) 0 01/19/2020 7:00 AM Undermining Maximum Distance (cm) 1 0 cm 01/19/2020 7:00 AM Undermining Starting Position (o'clock) 1 0 01/19/2020 7:00 AM Undermining Ending Position (o'clock) 1 0 01/19/2020 7:00 AM Undermining Maximum Distance (cm) 2 0 cm 01/19/2020 7:00 AM Undermining Starting Position (o'clock) 2 0 01/19/2020 7:00 AM Undermining Ending Position (o'clock) 2 0 01/19/2020 7:00 AM Wound Progress Improving 01/19/2020 7:00 AM Non-staged Wound Description Partial thickness 01/19/2020 7:00 AM Drainage Amount Scant 01/19/2020 7:00 AM Drainage Description Yellow 01/19/2020 7:00 AM Odor None 01/19/2020 7:00 AM Wound Margin Attached to wound base 01/19/2020 7:00 AM Adherent Yellow Slough % None 01/19/2020 7:00 AM Moist Yellow Slough % None 01/19/2020 7:00 AM Dry Black Eschar % None 01/19/2020 7:00 AM Moist Black Eschar % None 01/19/2020 7:00 AM Epithelialization % 1-25% 01/19/2020 7:00 AM Granulation % 76-100%;[place] 01/19/2020 7:00 AM Exposed Structure None 01/19/2020 7:00 AM Wound Bed Characteristics Clean;Intact;Granulation tissue 01/19/2020 7:00 AM Angeli-wound Assessment Temperature WNL 01/19/2020 7:00 AM Treatments Not Applicable 01/19/2020 7:00 AM Hemostasis Not applicable 01/19/2020 7:00 AM Cleansed Soap and water 01/19/2020 7:00 AM Laboratory and Additional Data Reviewed: January 19, 2020 12/28/2019 sed rate 33 CRP 6.4 WBC 4.6 culture on 12/28/2019 Gram stain negative culture normal chalino Date: 01/12/2020 New labs/ results as of last note: 12/28/2019 CBC Auto Differential Order: [id number] - Part of Panel Order [id number] Status: Final result Visible to patient: No (Not Released) Next appt: 01/12/2020 at 07:45 AM in Wound Care (Alena Mora DPM) Dx: Acute osteomyelitis (HCC); Elevated C... Component Ref Range & Units 12d ago (12/28/19) 3wk ago (12/18/19) 4wk ago (12/12/19) 1mo ago (12/07/19) 1mo ago (12/05/19) 1mo ago (12/02/19) 1mo ago (12/01/19) WBC 4.50 - 11.00 K/mcL 4.66 6.38 4.12Low 6.95 7.98 9.43 8.56 RBC 4.50 - 5.90 M/mcL 4.42Low 4.44Low 4.13Low 4.23Low 4.22Low 4.29Low 4.09Low Hemoglobin 13.5 - 17.5 g/dL 11.6Low 11.7Low 10.8Low 11.3Low 11.4Low 11.5Low 11.2Low Hematocrit 41.0 - 53.0 % 38.0Low 37.8Low 35.6Low 36.8Low 36.3Low 36.7Low 35.6Low MCV 80.0 - 100.0 fL 86.0 85.1 86.2 87.0 86.0 85.5 87.0 MCH 26.0 - 34.0 pg 26.2 26.4 26.2 26.7 27.0 26.8 27.4 MCHC 31.0 - 37.0 g/dL 30.5Low 31.0 30.3Low 30.7Low 31.4 31.3 31.5 Platelets 150 - 400 K/mcL 182 323 203 210 228 235 232 Comprehensive Metabolic Panel Order: [id number] Status: Final result Visible to patient: No (Not Released) Next appt: 01/12/2020 at 07:45 AM in Wound Care (Alena Mora DPM) Dx: Acute osteomyelitis (HCC); Elevated C... Component Ref Range & Units 12d ago (12/28/19) 3wk ago (12/18/19) 4wk ago (12/12/19) 1mo ago (12/07/19) 1mo ago (12/05/19) 1mo ago (12/02/19) 1mo ago (12/01/19) Sodium 135 - 145 mmol/L 142 142 140 138 139 137 140 Potassium 3.5 - 5.1 mmol/L 4.3 4.5 4.3 3.9 4.1 4.7 5.0 Chloride 98 - 108 mmol/L 109High 106 106 104 104 102 106 Bicarbonate 21 - 32 mmol/L 31 25 30 29 30 30 30 Anion Gap 10 - 20 mmol/L 6Low 16 8Low 9Low 9Low 10 9Low Glucose 65 - 99 mg/dL 135High 82 167High 243High 223High 256High 223High BUN 8 - 25 mg/dL 18 23 26High 17 19 19 22 Creatinine 0.50 - 1.30 mg/dL 0.71 1.04 0.89 0.86 0.86 1.06 0.98 eGFR >=60 mL/min/1.73 m2 104 79 95 96 96 78 85 BUN/Creatinine Ratio 10.0 - 20.0 25.4High 22.1High 29.2High 19.8 22.1High 17.9 22.4High Total Protein 6.0 - 8.0 g/dL 7.0 7.2 6.7 6.6 6.4 6.7 Albumin 3.2 - 5.2 g/dL 3.1Low 3.0Low 2.5Low 2.4Low 2.4Low 2.4Low Calcium 8.4 - 10.2 mg/dL 9.2 9.6 9.7 9.4 9.1 9.2 9.1 Alkaline Phosphatase 40 - 150 U/L 93 94 83 76 75 82 AST 0 - 45 U/L 16 20 35 28 20 32 Total Bilirubin 0.0 - 1.3 mg/dL 0.4 0.3 0.3 0.4 0.4 0.4 ALT 14 - 65 U/L 19 27 52 40 31 53 Resulting Agency Lab Lab Lab Lab Lab Lab Lab CRP, Inflammation Order: [id number] Status: Final result Visible to patient: No (Not Released) Next appt: 01/12/2020 at 07:45 AM in Wound Care (Alena Mora DPM) Dx: Acute osteomyelitis (HCC); Elevated C... Component Ref Range & Units 12d ago (12/28/19) 3wk ago (12/18/19) 4wk ago (12/12/19) 1mo ago (12/05/19) 1mo ago (12/02/19) 1mo ago (11/27/19) CRP(Inflammation) <=10.0 mg/L 6.4 18.7High 52.4High 85.3High 76.1High 69.0High Sedimentation Rate Order: [id number] Status: Final result Visible to patient: No (Not Released) Next appt: 01/12/2020 at 07:45 AM in Wound Care (Alena Mora DPM) Dx: Acute osteomyelitis (HCC); Elevated C... Component Ref Range & Units 12d ago (12/28/19) 3wk ago (12/18/19) 4wk ago (12/12/19) 1mo ago (12/05/19) 1mo ago (12/02/19) 1mo ago (11/27/19) Sed Rate 0 - 20 mm/hr 33High 72High 91High 85High 93High 94High Update from previous note Current Antibiotic: Doxycycline 100 mg PO BID for 6 weeks - Start 01/03/2020 Previous Antibiotic: Merrem 1,000 mg IV every 12 Hours until January 02, 2020 ([facility]) Rocephin 2 gm IV every 24 Hours Ancef 2,000 mg IV every 8 Hours Pre/Post Procedure Dressings: Per Dr. Mora Current culture: 12/28/2019 - Right foot, aerobic culture: Normal [place] after 48 hours. Recent Cultures: 12/21/2019 - Right foot, aerobic - normal ch[place]ino after 48 hours 12/21/2019 - Right foot, anaerobic: No anaerobic growth at 2 days. 12/10/2019 Right Foot Wound Aerobic Culture: Normal [place] After 48 Hours. Final 12/10/2019 Right foot wound, anaerobic culture: No anaerobic growth at 2 days. Final 12/08/2019 Urine Aerobic Culture: No Growth (<1,000 CFU/mL). Final. 12/07/2019 Urine Aerobic Culture on arrival to Nursing Rehab Unit: No Growth (<1,000 CFU/mL). Final. 12/02/2019 Right Foot Tissue Aerobic Culture: Normal [place] After 48 Hours. Final. 12/02/2019 Right Foot Tissue AFB Culture: No Acid Fast Bacilli Seen. Preliminary. 12/02/2019 Right Foot Tissue Anaerobic Culture: No Anaerobic Growth at 2 Days. Final. 12/02/2019 Right Foot Tissue Fungus Culture: No fungus isolated at 4 weeks. Final. 12/01/2019 Blood Culture #1: No Growth After 5 Days. Final. 12/01/2019 Blood Culture #2: No Growth After 5 Days. Final. 11/30/2019 Right Foot Wound Aerobic Culture: Normal [place] After 48 Hours. Final. 11/21/2019 Left Leg Wound Aerobic Culture: Normal [place] After 48 Hours. Final. 11/20/2019 Right Foot Tissue Aerobic Culture: Moderate Growth Enterobacter cloacae complex, S=Youssef Sensitive. Final. 11/20/2019 Right Foot Tissue Anaerobic Culture: No Anaerobic Growth at 2 Days. Final. 11/20/2019 Right Foot Bone Aerobic Culture: Light Growth Enterobacter Cloacae Complex, S=Youssef Sensitive. Final. 11/20/2019 Right Foot Bone Anaerobic Culture: No Anaerobic Growth at 2 Days. Final Date: 12/28/2019 New labs/ results as of last note: 12/21/2019 Labs unable to be drawn by Home Health nurse 12/25/2019 I have personally reviewed all labs and other results Labs: Current Culture: 12/21/2019 - Right foot, aerobic - normal chalino after 48 hours 12/21/2019 - Right foot, anaerobic: No anaerobic growth at 2 days. Update from previous note Current Antibiotics: Merrem 1,000 mg IV every 12 Hours until January 02, 2020 ([facility]) Previous Antibiotic: Rocephin 2 gm IV every 24 Hours Ancef 2,000 mg IV every 8 Hours Pre/Post Procedure Dressings: Per Dr. Mora Recent Cultures: 12/10/2019 Right Foot Wound Aerobic Culture: Normal [place] After 48 Hours. Final 12/10/2019 Right foot wound, anaerobic culture: No anaerobic growth at 2 days. Final 12/08/2019 Urine Aerobic Culture: No Growth (<1,000 CFU/mL). Final. 12/07/2019 Urine Aerobic Culture on arrival to Nursing Rehab Unit: No Growth (<1,000 CFU/mL). Final. 12/02/2019 Right Foot Tissue Aerobic Culture: Normal [place] After 48 Hours. Final. 12/02/2019 Right Foot Tissue AFB Culture: No Acid Fast Bacilli Seen. Preliminary. 12/02/2019 Right Foot Tissue Anaerobic Culture: No Anaerobic Growth at 2 Days. Final. 12/02/2019 Right Foot Tissue Fungus Culture: Fungal Culture in Progress. Preliminary. 12/01/2019 Blood Culture #1: No Growth After 5 Days. Final. 12/01/2019 Blood Culture #2: No Growth After 5 Days. Final. 11/30/2019 Right Foot Wound Aerobic Culture: Normal [place] After 48 Hours. Final. 11/21/2019 Left Leg Wound Aerobic Culture: Normal [place] After 48 Hours. Final. 11/20/2019 Right Foot Tissue Aerobic Culture: Moderate Growth Enterobacter cloacae complex, S=Youssef Sensitive. Final. 11/20/2019 Right Foot Tissue Anaerobic Culture: No Anaerobic Growth at 2 Days. Final. 11/20/2019 Right Foot Bone Aerobic Culture: Light Growth Enterobacter Cloacae Complex, S=Youssef Sensitive. Final. 11/20/2019 Right Foot Bone Anaerobic Culture: No Anaerobic Growth at 2 Days. Final Date: 12/21/2019 No new labs/ results as of last note: 12/18/2019 Update from previous note Current Antibiotics: Merrem 1,000 mg IV every 12 Hours until January 02, 2020 ([facility]) Previous Antibiotic: Rocephin 2 gm IV every 24 Hours Ancef 2,000 mg IV every 8 Hours Pre/Post Procedure Dressings: Per Dr. Mora Current Cultures: 12/10/2019 Right Foot Wound Aerobic Culture: Normal [place] After 48 Hours. Final 12/10/2019 Right foot wound, anaerobic culture: No anaerobic growth at 2 days. Final 12/08/2019 Urine Aerobic Culture: No Growth (<1,000 CFU/mL). Final. 12/07/2019 Urine Aerobic Culture on arrival to Nursing Rehab Unit: No Growth (<1,000 CFU/mL). Final. 12/02/2019 Right Foot Tissue Aerobic Culture: Normal [place] After 48 Hours. Final. 12/02/2019 Right Foot Tissue AFB Culture: No Acid Fast Bacilli Seen. Preliminary. 12/02/2019 Right Foot Tissue Anaerobic Culture: No Anaerobic Growth at 2 Days. Final. 12/02/2019 Right Foot Tissue Fungus Culture: Fungal Culture in Progress. Preliminary. 12/01/2019 Blood Culture #1: No Growth After 5 Days. Final. 12/01/2019 Blood Culture #2: No Growth After 5 Days. Final. 11/30/2019 Right Foot Wound Aerobic Culture: Normal [place] After 48 Hours. Final. 11/21/2019 Left Leg Wound Aerobic Culture: Normal [place] After 48 Hours. Final. 11/20/2019 Right Foot Tissue Aerobic Culture: Moderate Growth Enterobacter cloacae complex, S=Youssef Sensitive. Final. 11/20/2019 Right Foot Tissue Anaerobic Culture: No Anaerobic Growth at 2 Days. Final. 11/20/2019 Right Foot Bone Aerobic Culture: Light Growth Enterobacter Cloacae Complex, S=Youssef Sensitive. Final. 11/20/2019 Right Foot Bone Anaerobic Culture: No Anaerobic Growth at 2 Days. Final Date: 12/19/2019 No new labs/results as of last note Update from previous note Tmax: 98.5 Urine Output: 2400 Stool: X1 Current Antibiotics: Merrem 1,000 mg IV every 12 Hours until January 02, 2020 Previous Antibiotic: Rocephin 2 gm IV every 24 Hours Ancef 2,000 mg IV every 8 Hours Pre/Post Procedure Dressings: Per Dr. Mora I have personally reviewed the labs and results Test results Laboratory and Additional Data Reviewed: Labs to de drawn every Wednesday (CBC, CMP, Sed Rate, CRP) Current Cultures: 12/10/2019 Right Foot Wound Aerobic Culture: Normal [place] After 48 Hours. Final 12/10/2019 Right foot wound, anaerobic culture: No anaerobic growth at 2 days. Final 12/08/2019 Urine Aerobic Culture: No Growth (<1,000 CFU/mL). Final. 12/07/2019 Urine Aerobic Culture on arrival to Nursing Rehab Unit: No Growth (<1,000 CFU/mL). Final. 12/02/2019 Right Foot Tissue Aerobic Culture: Normal [place] After 48 Hours. Final. 12/02/2019 Right Foot Tissue AFB Culture: No Acid Fast Bacilli Seen. Preliminary. 12/02/2019 Right Foot Tissue Anaerobic Culture: No Anaerobic Growth at 2 Days. Final. 12/02/2019 Right Foot Tissue Fungus Culture: Fungal Culture in Progress. Preliminary. 12/01/2019 Blood Culture #1: No Growth After 5 Days. Final. 12/01/2019 Blood Culture #2: No Growth After 5 Days. Final. 11/30/2019 Right Foot Wound Aerobic Culture: Normal [place] After 48 Hours. Final. 11/21/2019 Left Leg Wound Aerobic Culture: Normal [place] After 48 Hours. Final. 11/20/2019 Right Foot Tissue Aerobic Culture: Moderate Growth Enterobacter cloacae complex, S=Youssef Sensitive. Final. 11/20/2019 Right Foot Tissue Anaerobic Culture: No Anaerobic Growth at 2 Days. Final. 11/20/2019 Right Foot Bone Aerobic Culture: Light Growth Enterobacter Cloacae Complex, S=Youssef Sensitive. Final. 11/20/2019 Right Foot Bone Anaerobic Culture: No Anaerobic Growth at 2 Days. Final Date: 12/18/2019 No new labs/results as of last note Update from previous note Tmax: 98.1 Urine Output: 3950 Stool: not recorded Current Antibiotics: Merrem 1,000 mg IV every 12 Hours Previous Antibiotic: Rocephin 2 gm IV every 24 Hours Ancef 2,000 mg IV every 8 Hours Pre/Post Procedure I have personally reviewed the labs and results Test results Laboratory and Additional Data Reviewed: Current Cultures: 12/10/2019 Right Foot Wound Aerobic Culture: Normal [place] After 48 Hours. Final 12/10/2019 Right foot wound, anaerobic culture: No anaerobic growth at 2 days. Final 12/08/2019 Urine Aerobic Culture: No Growth (<1,000 CFU/mL). Final. 12/07/2019 Urine Aerobic Culture on arrival to Nursing Rehab Unit: No Growth (<1,000 CFU/mL). Final. 12/02/2019 Right Foot Tissue Aerobic Culture: Normal [place] After 48 Hours. Final. 12/02/2019 Right Foot Tissue AFB Culture: No Acid Fast Bacilli Seen. Preliminary. 12/02/2019 Right Foot Tissue Anaerobic Culture: No Anaerobic Growth at 2 Days. Final. 12/02/2019 Right Foot Tissue Fungus Culture: Fungal Culture in Progress. Preliminary. 12/01/2019 Blood Culture #1: No Growth After 5 Days. Final. 12/01/2019 Blood Culture #2: No Growth After 5 Days. Final. 11/30/2019 Right Foot Wound Aerobic Culture: Normal [place] After 48 Hours. Final. 11/21/2019 Left Leg Wound Aerobic Culture: Normal [place] After 48 Hours. Final. 11/20/2019 Right Foot Tissue Aerobic Culture: Moderate Growth Enterobacter cloacae complex, S=Youssef Sensitive. Final. 11/20/2019 Right Foot Tissue Anaerobic Culture: No Anaerobic Growth at 2 Days. Final. 11/20/2019 Right Foot Bone Aerobic Culture: Light Growth Enterobacter Cloacae Complex, S=Youssef Sensitive. Final. 11/20/2019 Right Foot Bone Anaerobic Culture: No Anaerobic Growth at 2 Days. Final Date: 12/15/2019 New labs/results as of last note Update from previous note Tmax: 98.7 Urine Output: 1900 Stool: not recorded Current Antibiotics: Merrem 1,000 mg IV every 12 Hours Previous Antibiotic: Rocephin 2 gm IV every 24 Hours Ancef 2,000 mg IV every 8 Hours Pre/Post Procedure I have personally reviewed the labs and results Test results Laboratory and Additional Data Reviewed: Current Cultures: 12/10/2019 Right Foot Wound Aerobic Culture: Normal [place] After 48 Hours. Final 12/10/2019 Right foot wound, anaerobic culture: No anaerobic growth at 2 days. Final 12/08/2019 Urine Aerobic Culture: No Growth (<1,000 CFU/mL). Final. 12/07/2019 Urine Aerobic Culture on arrival to Nursing Rehab Unit: No Growth (<1,000 CFU/mL). Final. 12/02/2019 Right Foot Tissue Aerobic Culture: Normal [place] After 48 Hours. Final. 12/02/2019 Right Foot Tissue AFB Culture: No Acid Fast Bacilli Seen. Preliminary. 12/02/2019 Right Foot Tissue Anaerobic Culture: No Anaerobic Growth at 2 Days. Final. 12/02/2019 Right Foot Tissue Fungus Culture: Fungal Culture in Progress. Preliminary. 12/01/2019 Blood Culture #1: No Growth After 5 Days. Final. 12/01/2019 Blood Culture #2: No Growth After 5 Days. Final. 11/30/2019 Right Foot Wound Aerobic Culture: Normal [place] After 48 Hours. Final. 11/21/2019 Left Leg Wound Aerobic Culture: Normal [place] After 48 Hours. Final. 11/20/2019 Right Foot Tissue Aerobic Culture: Moderate Growth Enterobacter cloacae complex, S=Youssef Sensitive. Final. 11/20/2019 Right Foot Tissue Anaerobic Culture: No Anaerobic Growth at 2 Days. Final. 11/20/2019 Right Foot Bone Aerobic Culture: Light Growth Enterobacter Cloacae Complex, S=Youssef Sensitive. Final. 11/20/2019 Right Foot Bone Anaerobic Culture: No Anaerobic Growth at 2 Days. Final Date: 12/14/2019 New labs/ results as of last note: 12/12/2019 T-Max: 98.6 Output: Urine 2150 ml Stool not recorded Current Antibiotics: Merrem 1,000 mg IV every 12 Hours Previous Antibiotic: Rocephin 2 gm IV every 24 Hours Ancef 2,000 mg IV every 8 Hours Pre/Post Procedure I have personally reviewed the labs and results Test results Laboratory and Additional Data Reviewed: Current Cultures: 12/10/2019 Right Foot Wound Aerobic Culture: Normal [place] After 48 Hours. Final 12/10/2019 Right foot wound, anaerobic culture: No anaerobic growth at 2 days. Final 12/08/2019 Urine Aerobic Culture: No Growth (<1,000 CFU/mL). Final. 12/07/2019 Urine Aerobic Culture on arrival to Nursing Rehab Unit: No Growth (<1,000 CFU/mL). Final. 12/02/2019 Right Foot Tissue Aerobic Culture: Normal [place] After 48 Hours. Final. 12/02/2019 Right Foot Tissue AFB Culture: No Acid Fast Bacilli Seen. Preliminary. 12/02/2019 Right Foot Tissue Anaerobic Culture: No Anaerobic Growth at 2 Days. Final. 12/02/2019 Right Foot Tissue Fungus Culture: Fungal Culture in Progress. Preliminary. 12/01/2019 Blood Culture #1: No Growth After 5 Days. Final. 12/01/2019 Blood Culture #2: No Growth After 5 Days. Final. 11/30/2019 Right Foot Wound Aerobic Culture: Normal [place] After 48 Hours. Final. 11/21/2019 Left Leg Wound Aerobic Culture: Normal [place] After 48 Hours. Final. 11/20/2019 Right Foot Tissue Aerobic Culture: Moderate Growth Enterobacter cloacae complex, S=Youssef Sensitive. Final. 11/20/2019 Right Foot Tissue Anaerobic Culture: No Anaerobic Growth at 2 Days. Final. 11/20/2019 Right Foot Bone Aerobic Culture: Light Growth Enterobacter Cloacae Complex, S=Youssef Sensitive. Final. 11/20/2019 Right Foot Bone Anaerobic Culture: No Anaerobic Growth at 2 Days. Final Update from previous note Date: 12/12/2019 New labs/results as of last note Update from previous note Tmax: 99.2 Urine Output: 1600 Stool: not recorded Current Antibiotics: Merrem 1,000 mg IV every 12 Hours Previous Antibiotic: Rocephin 2 gm IV every 24 Hours Ancef 2,000 mg IV every 8 Hours Pre/Post Procedure I have personally reviewed the labs and results Test results Laboratory and Additional Data Reviewed: Labs: CMP 12/12/2019 06:11 Glucose: 167 BUN: 26 Creatinine: 0.89 Sodium: 140 Potassium: 4.3 Total Protein: 6.7 Albumin: 2.5 Alk Phos: 83 AST: 35 ALT: 52 Total Bilirubin: 0.3 CBC 12/12/2019 06:11 WBC: 4.12 RBC: 4.13 Hgb: 10.8 Hct: 35.6 Platelets: 203 Lymphocytes Abs: 0.66 CRP 12/12/2019 06:11 52.4 Current Cultures: 12/10/2019 Right Foot Wound Aerobic Culture: Normal [place] After 24 Hours. Preliminary. 12/08/2019 Urine Aerobic Culture: No Growth (<1,000 CFU/mL). Final. 12/07/2019 Urine Aerobic Culture on arrival to Nursing Rehab Unit: No Growth (<1,000 CFU/mL). Final. 12/02/2019 Right Foot Tissue Aerobic Culture: Normal [place] After 48 Hours. Final. 12/02/2019 Right Foot Tissue AFB Culture: No Acid Fast Bacilli Seen. Preliminary. 12/02/2019 Right Foot Tissue Anaerobic Culture: No Anaerobic Growth at 2 Days. Final. 12/02/2019 Right Foot Tissue Fungus Culture: Fungal Culture in Progress. Preliminary. 12/01/2019 Blood Culture #1: No Growth After 5 Days. Final. 12/01/2019 Blood Culture #2: No Growth After 5 Days. Final. 11/30/2019 Right Foot Wound Aerobic Culture: Normal [place] After 48 Hours. Final. 11/21/2019 Left Leg Wound Aerobic Culture: Normal [place] After 48 Hours. Final. 11/20/2019 Right Foot Tissue Aerobic Culture: Moderate Growth Enterobacter cloacae complex, S=Youssef Sensitive. Final. 11/20/2019 Right Foot Tissue Anaerobic Culture: No Anaerobic Growth at 2 Days. Final. 11/20/2019 Right Foot Bone Aerobic Culture: Light Growth Enterobacter Cloacae Complex, S=Youssef Sensitive. Final. 11/20/2019 Right Foot Bone Anaerobic Culture: No Anaerobic Growth at 2 Days. Final. Date: 12/11/2019 New labs/results as of last note Update from previous note Tmax: 98.7 Urine Output: 2500 Stool: X1 Current Antibiotics: Rocephin 2 gm IV every 24 Hours until 01/02/2020 Previous Antibiotic: Ancef 2,000 mg IV every 8 Hours Pre/Post Procedure I have personally reviewed the labs and results Test results Laboratory and Additional Data Reviewed: U/A 12/08/2019 Glucose: 150 Blood: Small WBC: 7 Bacteria: Rare Labs: Vitamin D, Total 12/07/2019 04:55 16 B12/Folate 12/07/2019 04:55 B12: 828 Folate: >20.0 Ferritin 12/07/2019 04:55 211 Iron 12/07/2019 04:55 30 CMP 12/07/2019 04:55 Glucose: 243 BUN: 17 Creatinine: 0.86 Sodium: 138 Potassium: 3.9 Total Protein: 6.6 Albumin: 2.4 Alk Phos: 76 AST: 28 ALT: 40 Total Bilirubin: 0.4 CBC 12/07/2019 04:54 WBC: 6.95 Hgb: 11.3 Hct: 36.8 Platelets: 210 Lymphocytes Abs: 0.64 CRP 12/05/2019 07:58 85.3 U/A 12/07/2019 Protein: 30 Glucose: >=500 Blood: Small Leukocyte Esterase: Trace Renal Epithelial: <1 Current Cultures: 12/10/2019 Right Foot Wound Aerobic Culture: Rare WBC. Rare Epithelial Cells. No Organisms Seen. Preliminary. 12/08/2019 Urine Aerobic Culture: No Growth (<1,000 CFU/mL). Final. 12/07/2019 Urine Aerobic Culture on arrival to Nursing Rehab Unit: No Growth (<1,000 CFU/mL). Final. 12/02/2019 Right Foot Tissue Aerobic Culture: Normal [place] After 48 Hours. Final. 12/02/2019 Right Foot Tissue AFB Culture: No Acid Fast Bacilli Seen. Preliminary. 12/02/2019 Right Foot Tissue Anaerobic Culture: No Anaerobic Growth at 2 Days. Final. 12/02/2019 Right Foot Tissue Fungus Culture: Fungal Culture in Progress. Preliminary. 12/01/2019 Blood Culture #1: No Growth After 5 Days. Final. 12/01/2019 Blood Culture #2: No Growth After 5 Days. Final. 11/30/2019 Right Foot Wound Aerobic Culture: Normal [place] After 48 Hours. Final. 11/21/2019 Left Leg Wound Aerobic Culture: Normal [place] After 48 Hours. Final. 11/20/2019 Right Foot Tissue Aerobic Culture: Moderate Growth Enterobacter cloacae complex, S=Youssef Sensitive. Final. 11/20/2019 Right Foot Tissue Anaerobic Culture: No Anaerobic Growth at 2 Days. Final. 11/20/2019 Right Foot Bone Aerobic Culture: Light Growth Enterobacter Cloacae Complex, S=Youssef Sensitive. Final. 11/20/2019 Right Foot Bone Anaerobic Culture: No Anaerobic Growth at 2 Days. Final. Date: 12/08/2019 New labs/results as of last note Update from previous note Tmax: 99.2 Urine Output: 4950 Stool: not recorded Current Antibiotics: Rocephin 2 gm IV every 24 Hours until 01/02/2020 Previous Antibiotic: Ancef 2,000 mg IV every 8 Hours Pre/Post Procedure I have personally reviewed the labs and results Test results Laboratory and Additional Data Reviewed: U/A 12/08/2019 Glucose: 150 Blood: Small WBC: 7 Bacteria: Rare Labs: Vitamin D, Total 12/07/2019 04:55 16 B12/Folate 12/07/2019 04:55 B12: 828 Folate: >20.0 Ferritin 12/07/2019 04:55 211 Iron 12/07/2019 04:55 30 CMP 12/07/2019 04:55 Glucose: 243 BUN: 17 Creatinine: 0.86 Sodium: 138 Potassium: 3.9 Total Protein: 6.6 Albumin: 2.4 Alk Phos: 76 AST: 28 ALT: 40 Total Bilirubin: 0.4 CBC 12/07/2019 04:54 WBC: 6.95 Hgb: 11.3 Hct: 36.8 Platelets: 210 Lymphocytes Abs: 0.64 CRP 12/05/2019 07:58 85.3 U/A 12/07/2019 Protein: 30 Glucose: >=500 Blood: Small Leukocyte Esterase: Trace Renal Epithelial: <1 Current Cultures: 12/07/2019 Urine Aerobic Culture on arrival to Nursing Rehab Unit: No Growth, Incubation Continued.Preliminary. 12/02/2019 Right Foot Tissue Aerobic Culture: Normal [place] After 48 Hours. Final. 12/02/2019 Right Foot Tissue AFB Culture: No Acid Fast Bacilli Seen. Preliminary. 12/02/2019 Right Foot Tissue Anaerobic Culture: No Anaerobic Growth at 2 Days. Final. 12/02/2019 Right Foot Tissue Fungus Culture: Fungal Culture in Progress. Preliminary. 12/01/2019 Blood Culture #1: No Growth After 5 Days. Final. 12/01/2019 Blood Culture #2: No Growth After 5 Days. Final. 11/30/2019 Right Foot Wound Aerobic Culture: Normal [place] After 48 Hours. Final. 11/21/2019 Left Leg Wound Aerobic Culture: Normal [place] After 48 Hours. Final. 11/20/2019 Right Foot Tissue Aerobic Culture: Moderate Growth Enterobacter cloacae complex, S=Youssef Sensitive. Final. 11/20/2019 Right Foot Tissue Anaerobic Culture: No Anaerobic Growth at 2 Days. Final. 11/20/2019 Right Foot Bone Aerobic Culture: Light Growth Enterobacter Cloacae Complex, S=Youssef Sensitive. Final. 11/20/2019 Right Foot Bone Anaerobic Culture: No Anaerobic Growth at 2 Days. Final. Radiology: Left Ankle X-Ray 12/07/2019 1. A new screw internally fixes the base of the 5th metatarsal to near anatomic alignment, however this screw is broken/fractured. 2. 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 Lateral subluxation of the 2nd through 5th metatarsal bases is again noted, as well as pes planus deformity. 3. Milder arthritis is noted in the tibiotalar joint and subtalar joint. 4. Large calcaneal enthesophytes are noted at the insertion sites of the plantar fascia and Achilles tendon. 5. No acute fracture, or other acute bony abnormality is seen. Date: 12/07/2019 New labs/results as of last note Update from previous note Tmax: 99.1 Urine Output: 1800 Stool: not recorded Current Antibiotics: Rocephin 2 gm IV every 24 Hours until 01/02/2020 Previous Antibiotic: Ancef 2,000 mg IV every 8 Hours Pre/Post Procedure I have personally reviewed the labs and results Test results Laboratory and Additional Data Reviewed: Labs: Vitamin D, Total 12/07/2019 04:55 16 B12/Folate 12/07/2019 04:55 B12: 828 Folate: >20.0 Ferritin 12/07/2019 04:55 211 Iron 12/07/2019 04:55 30 CMP 12/07/2019 04:55 Glucose: 243 BUN: 17 Creatinine: 0.86 Sodium: 138 Potassium: 3.9 Total Protein: 6.6 Albumin: 2.4 Alk Phos: 76 AST: 28 ALT: 40 Total Bilirubin: 0.4 CBC 12/07/2019 04:54 WBC: 6.95 Hgb: 11.3 Hct: 36.8 Platelets: 210 Lymphocytes Abs: 0.64 CRP 12/05/2019 07:58 85.3 U/A 12/07/2019 Protein: 30 Glucose: >=500 Blood: Small Leukocyte Esterase: Trace Renal Epithelial: <1 Current Cultures: 12/02/2019 Right Foot Tissue Aerobic Culture: Normal Chalino After 48 Hours. Final. 12/02/2019 Right Foot Tissue AFB Culture: No Acid Fast Bacilli Seen. Preliminary. 12/02/2019 Right Foot Tissue Anaerobic Culture: No Anaerobic Growth at 2 Days. Final. 12/02/2019 Right Foot Tissue Fungus Culture: Fungal Culture in Progress. Preliminary. 12/01/2019 Blood Culture #1: No Growth After 5 Days. Final. 12/01/2019 Blood Culture #2: No Growth After 5 Days. Final. 11/30/2019 Right Foot Wound Aerobic Culture: Normal Chalino After 48 Hours. Final. 11/21/2019 Left Leg Wound Aerobic Culture: Normal Chalino After 48 Hours. Final. 11/20/2019 Right Foot Tissue Aerobic Culture: Moderate Growth Enterobacter cloacae complex, S=Youssef Sensitive. Final. 11/20/2019 Right Foot Tissue Anaerobic Culture: No Anaerobic Growth at 2 Days. Final. 11/20/2019 Right Foot Bone Aerobic Culture: Light Growth Enterobacter Cloacae Complex, S=Youssef Sensitive. Final. 11/20/2019 Right Foot Bone Anaerobic Culture: No Anaerobic Growth at 2 Days. Final. Date: 12/06/2019 New labs/results as of last note Update from previous note Tmax: 99 Urine Output: 1250 Stool: not recorded Current Antibiotics: Rocephin 2 gm IV every 24 Hours until 01/02/2020 Previous Antibiotic: Ancef 2,000 mg IV every 8 Hours Pre/Post Procedure I have personally reviewed the labs and results Test results Laboratory and Additional Data Reviewed: Labs: CBC 12/05/2019 07:58 WBC: 7.98 Hgb: 11.4 Hct: 36.3 Platelets: 228 Lymphocytes Abs: 0.52 CMP 12/05/2019 07:58 Glucose: 223 BUN: 19 Creatinine: 0.86 Sodium: 139 Potassium: 4.1 Total Protein: 6.4 Albumin: 2.4 Alk Phos: 75 AST: 20 ALT: 31 Total Bilirubin: 0.4 CRP 12/05/2019 07:58 85.3 Current Cultures: 12/02/2019 Right Foot Tissue Aerobic Culture: Normal Chalino After 48 Hours. Final. 12/02/2019 Right Foot Tissue AFB Culture: No Acid Fast Bacilli Seen. Preliminary. 12/02/2019 Right Foot Tissue Anaerobic Culture: No Anaerobic Growth at 2 Days. Final. 12/02/2019 Right Foot Tissue Fungus Culture: Fungal Culture in Progress. Preliminary. 12/01/2019 Blood Culture #1: No Growth After 5 Days. Final. 12/01/2019 Blood Culture #2: No Growth After 5 Days. Final. 11/30/2019 Right Foot Wound Aerobic Culture: Normal Chalion After 48 Hours. Final. 11/21/2019 Left Leg Wound Aerobic Culture: Normal Chalino After 48 Hours. Final. 11/20/2019 Right Foot Tissue Aerobic Culture: Moderate Growth Enterobacter cloacae complex, S=Youssef Sensitive. Final. 11/20/2019 Right Foot Tissue Anaerobic Culture: No Anaerobic Growth at 2 Days. Final. 11/20/2019 Right Foot Bone Aerobic Culture: Light Growth Enterobacter Cloacae Complex, S=Youssef Sensitive. Final. 11/20/2019 Right Foot Bone Anaerobic Culture: No Anaerobic Growth at 2 Days. Final. Pathology: 12/02/2019 A. Soft tissue, Right Foot, excision: Non-specific ulcer. Date: 12/05/2019 New labs/results as of last note Update from previous note Tmax: 98.8 Urine Output: 2900 Stool: not recorded Current Antibiotics: Rocephin 2 gm IV every 24 Hours Previous Antibiotic: Ancef 2,000 mg IV every 8 Hours Pre/Post Procedure I have personally reviewed the labs and results Test results Laboratory and Additional Data Reviewed: Labs: CBC 12/05/2019 07:58 WBC: 7.98 Hgb: 11.4 Hct: 36.3 Platelets: 228 Lymphocytes Abs: 0.52 CMP 12/05/2019 07:58 Glucose: 223 BUN: 19 Creatinine: 0.86 Sodium: 139 Potassium: 4.1 Total Protein: 6.4 Albumin: 2.4 Alk Phos: 75 AST: 20 ALT: 31 Total Bilirubin: 0.4 CRP 12/05/2019 07:58 85.3 Current Cultures: 12/02/2019 Right Foot Tissue Aerobic Culture: Normal Chalino After 48 Hours. Final. 12/02/2019 Right Foot Tissue AFB Culture: No Acid Fast Bacilli Seen. Preliminary. 12/02/2019 Right Foot Tissue Anaerobic Culture: No Anaerobic Growth at 2 Days. Final. 12/02/2019 Right Foot Tissue Fungus Culture: Fungal Culture in Progress. Preliminary. 12/01/2019 Blood Culture #1: No Growth After 48 Hours. Preliminary. 12/01/2019 Blood Culture #2: No Growth After 48 Hours. Preliminary. 11/30/2019 Right Foot Wound Aerobic Culture: Normal Chalino After 48 Hours. Final. 11/21/2019 Left Leg Wound Aerobic Culture: Normal Chalino After 48 Hours. Final. 11/20/2019 Right Foot Tissue Aerobic Culture: Moderate Growth Enterobacter cloacae complex, S=Youssef Sensitive. Final. 11/20/2019 Right Foot Tissue Anaerobic Culture: No Anaerobic Growth at 2 Days. Final. 11/20/2019 Right Foot Bone Aerobic Culture: Light Growth Enterobacter Cloacae Complex, S=Youssef Sensitive. Final. 11/20/2019 Right Foot Bone Anaerobic Culture: No Anaerobic Growth at 2 Days. Final. Current Antibiotics: Rocephin 2 gm IV every 24 Hours Previous Antibiotic: Ancef 2,000 mg IV every 8 Hours Pre/Post Procedure I have personally reviewed the labs and results Test results Laboratory and Additional Data Reviewed: Results from last 7 days Lab Units 12/01/19 0648 11/30/19 1245 11/29/19 0655 SODIUM mmol/L 140 140 142 POTASSIUM mmol/L 5.0 4.9 5.1 CHLORIDE mmol/L 106 105 107 BUN mg/dL 22 24 36* CREATININE mg/dL 0.98 0.94 1.12 GLUCOSE mg/dL 223* 127* 108* CALCIUM mg/dL 9.1 9.3 9.3 Results from last 7 days Lab Units 12/01/19 0635 11/30/19 1245 WBC K/mcL 8.56 8.72 HGB g/dL 11.2* 10.8* HCT % 35.6* 35.4* PLT K/mcL 232 243 Results from last 7 days Lab Units 11/30/19 1245 ALK PHOS U/L 67 BILIRUBIN TOTAL mg/dL 0.3 TOTAL PROTEIN g/dL 6.5 ALTR U/L 56 AST U/L 42 Current Cultures: 12/02/2019 Right Foot Tissue Aerobic Culture: Normal Chalino After 24 Hours. Preliminary. 12/02/2019 Right Foot Tissue AFB Culture: No Acid Fast Bacilli Seen. Preliminary. 12/01/2019 Blood Culture #1: No Growth After 48 Hours. Preliminary. 12/01/2019 Blood Culture #2: No Growth After 48 Hours. Preliminary. 11/30/2019 Right Foot Wound Aerobic Culture: Normal Chalino After 48 Hours. Final. 11/21/2019 Left Leg Wound Aerobic Culture: Normal Chalino After 48 Hours. Final. 11/20/2019 Right Foot Tissue Aerobic Culture: Moderate Growth Enterobacter cloacae complex, S=Youssef Sensitive. Final. 11/20/2019 Right Foot Tissue Anaerobic Culture: No Anaerobic Growth at 2 Days. Final. 11/20/2019 Right Foot Bone Aerobic Culture: Light Growth Enterobacter Cloacae Complex, S=Youssef Sensitive. Final. 11/20/2019 Right Foot Bone Anaerobic Culture: No Anaerobic Growth at 2 Days. Final. Recent Cultures: 05/30/2019 Right Foot Tissue Aerobic Culture: Normal Chalino After 48 Hours. Final. 05/30/2019 Right Foot Tissue Anaerobic Culture: No Anaerobic Growth at 2 Days. Final. 03/23/2019 Right Foot Wound Aerobic Culture: Heavy Growth Raoultella [place], R=Ampicillin, S=Remainder of panel. 03/09/2019 Right Foot Wound Aerobic Culture: Normal Chalino After 48 Hours. Final. 02/09/2019 Right Foot Wound Aerobic Culture: Normal Chalino After 48 Hours. Final. 01/19/2019 Right Toe Two Wound Aerobic Culture: Heavy Growth Enterobacter Cloacae Complex, S=Youssef Sensitive. Final. Radiology: Right Foot X-Ray 12/02/2019 Intraoperative fluoroscopy provided. Severe bony deformity of the foot as described. Please correlate with operative note. Chest X-Ray 11/23/2019 1. Right arm PICC line in place with tip in superior vena cava. 2. No acute pulmonary disease. 3. Cardiomegaly with evidence of prior open heart surgery. 4. No acute osseous abnormality Right Foot X-Ray 11/20/2019 IMPRESSION: Intraoperative fluoroscopy for localization during right foot and ankle reconstruction and fixation. Please see operative report for details. Left Ankle X-Ray Ordered 11/20/2019 Right Foot X-Ray 11/20/2019 FINDINGS: Two views of the right foot were obtained. There are advanced changes of Charcot arthropathy throughout the right midfoot which appears similar compared to prior examination. There are postsurgical changes of resection of the right 2nd toe proximal phalangeal head. IMPRESSION: 1. Advanced changes of Charcot arthropathy throughout the right midfoot which appear unchanged compared to prior examination. Chest AP/PA X-Ray 11/16/2019 1. No acute pulmonary disease. 2. Cardiomegaly, with evidence of prior open heart surgery. 3. Multilevel degenerative changes of the thoracic spine. MR Right Foot 05/19/2019 1. There is a superficial soft tissue ulcer again seen along the plantar aspect of the midfoot, butthere is no evidence of abscess or osteomyelitis in this region. 2. Stable appearance of the sequela of severe neuropathic arthropathy of the midfoot with collapse of the midfoot again seen resulting in a rocker bottom deformity. 3. A moderate amount of diffuse subcutaneous edema along the dorsum of the foot may be due to reactive edema or a cellulitis, but this is nonspecific. Right Foot X-Ray 04/28/2019 1. Soft tissue irregularity involving the plantar aspect of the foot likely representing the reported ulcer. No bony destruction to suggest osteomyelitis. 2. No evidence of radiopaque foreign body. 3. Stable deformity and degenerative changes involving the midfoot. Findings are consistent with Charcot joint. NM White Cell Scan Spot Limited 03/08/2017 FINDINGS: A focal area of intense abnormal white blood cell migration is noted central plantar aspect of the right foot corresponding to the area of the wound demonstrated radiographically. No other focus of white blood cell migration abnormality is evident within the right or left foot. IMPRESSION: Focal area of abnormal white blood cell migration at the plantar aspect central right foot may be at the wound itself or may be involving the bone with associated fracture as demonstrated radiographically. Anatomic detail is insufficient for differentiation between the two. Renal U/S 03/07/2017 IMPRESSION: Severe thickening of the urinary bladder wall. This could be due to outlet obstruction with hypertrophy of the wall. If there is no such history, this should be evaluated with cystoscopy. CVPS: Arterial Doppler: not on file Venous Doppler: not on file 2D Echo 11/23/2019 Moderate LV enlargement with LVH. Global systolic dysfunction with segmental features. LVEF 30% Elevated LV filling pressures RV is dilated with severe RV dysfunction Mild mitral annular calcification, mild thickening of the aortic valve without hemodynamically significant valvular disease There is a atrial level right to left shunt identified with saline contrast with free breathing andValsalva most likely via PFO LVEF unchanged from to previous echo from 2017 Surgeries: Please see above for surgical history Procedure: Right Foot I&D ADJUSTMENT EXTERNAL FIXATOR Date: 12/02/2019 Surgery: Alena Mora DPM Procedure: RIGHT FOOT RECONSTRUCTION WITH APPLICATION OF CIRCULAR STATIC EXTERNAL FIXATION Date: 11/20/2019 Surgeon: Alena Mora DPM Procedure: ARTHROPLASTY 2ND TOE RIGHT FOOT Date: 01/25/2019 Surgeon: Rosa M Robles DPM Pathology: not on file documented in this encounter* Maria Isabel Awad MD - 01/26/2020 7:45 AM EDT 12/04/2019 Patient Name: Dyllan Huertas Admit Date: MR #: [id number] : 1960 Physicians: Rohit Aguilar MD (Family); No ref. provider found (Referring) Assessment and Plan: Number 1 November 232019 Impression Right foot ulcer status post surgical intervention Severe Charcot deformity status post surgical intervention Enterobacter cloaca infection and gram-negative infection see cultures below RaullTela which is a gram-negative Acute osteomyelitis bone culture on 11/20/2019+ for the same pathogen that was present in January 2019is Enterobacter cloaca pansensitive RAJINDER none on chart 11/24/2019 Osteomyelitis as bone culture is positive from 11/20/2019 for Enterobacter cloaca 11/30/2019 New drainage from the pin site Elevated sed rate Elevated CRP Osteomyelitis right foot 12/01/2019 Osteomyelitis right foot Delayed healing of the plantar foot postop wound Cellulitis of the foot 12/04/2019 Status post surgical intervention with incision and drainage by Dr. Mora on 12/02/2019 cultures now with normal chalino AFB and fungus negative 12/05/2019 Sed rate 85 CRP 85 Per rehab physician there is a risk for the left ankle issues especially with diabetic neuropathy in the left foot and he has had right foot surgery 12/06/2019 OR cultures negative elevated CRP could be just postop We will continue IV antibiotics as planned till January 01 Rocephin 2 g every 24 hours 12/11/2019 Right foot wound with some maceration drainage 12/12/2019 CRP improving 12/21/2019 Patient is home now last night he was having difficulty flushing the line PICC line not functioning well because the picc team Plantar foot wound no cellulitis no maceration pin sites look excellent 2019 Right foot wound postop healing remarkably cellulitis improved Patient completing treatment for acute osteomyelitis Enterobacter infection Minimal drainage at the incision site will culture today January 12, 2020 Right second toe and great toe superficial ulceration present Right plantar foot wound excellent with almost healing no drainage no redness Sed rate 33 last CRP 6.4 12/28/2019 much better than before last culture normal chalino from December 27 January 19, 2020 Osteomyelitis right foot Charcot with correction surgery done Postop wound with delayed healing January 26, 2020 Postop right plantar wound continues to improve Last culture normal chalino on December 27 last lab work was December 27 CRP 6.5 We will do CBC CMP sed rate CRP at next visit in the wound clinic orders are in the computer from I will see him in 2 weeks Plan January 26, 2020 Doxycycline 100 mg p.o. once a day suppressive treatment Local dressings per Dr. Mora The least I would consider continuing the doxycycline would be up to February [address] Mora January 19, 2020 Patient has received 6 weeks of IV antibiotics Followed by 2 weeks of oral antibiotic Will decrease doxycycline to 100 mg p.o. once a day Dressings per Dr. Mora Revisit next week I have discussed with Dr. Mora January 12, 2020 Discontinue PICC line was done on January 01 Discontinue IV meropenem Doxycycline 100 g p.o. twice daily for 2 months I will give 30 days with 1 refill Local dressings per Dr. Mora Revisit 2 weeks for me with Dr. Mora 12/28/2019 Meropenem 1 g IV twice daily till January 01 which will be 6 weeks of treatment Labs could not be drawn at home because of difficulty for peripheral draw I did not want him to drive from the line because of risk of clotting We will draw them here today After that we will give him doxycycline 100 mg p.o. twice daily for 6 weeks to make 3 months treatment 12/21/2019 IV meropenem 1 g twice daily till January 01 Picc team to evaluate the PICC line consider another midline if needed Revisit 3 weeks for me 12/18/2019 OPAT referral IV meropenem 1 g every 12 till January 01 Home IV antibiotic by [facility] Any dressing orders would be per Dr. Mora CBC CMP sed rate CRP every Wednesday12/14/2019 and 12/15/2019 Continue IV meropenem till January 01 if he can manage to do that Await a picture by podiatry upon dressing change today I have discussed with podiatry Will plan for CBC CMP sed rate CRP next week 12/12/2019 Patient tolerating the meropenem Will await Dr. Mora to check the dressing on the wound at her next rounds Discontinue Rocephin Start meropenem 1 g IV every 12 for the Enterobacter and the other gram-negative that he had seen in the cultures especially with the extensive surgery that was done and he had some drainage on the weekend Continue IV antibiotics till January 01 CBC CMP sed rate CRP Will discuss with Dr. Lopez and Dr. Mora 12/08/2019 Rocephin continued till January 01 Urinary retention to be evaluated by Dr. Lopez Will await for Dr. Mora to do the dressings 12/07/2019 Rocephin 2 g IV 24 hours till January 01 Discontinue Schulte catheter CBC CMP sed rate CRP on Wednesday12/06/2019 Rocephin 2 g to 24 hours till January 01 CBC CMP sed rate CRP periodically Transfer to rehab he has been accepted Will follow the patient in rehab with Dr. Lopez and Dr. Mora 12/05/2019 Rocephin 2 g IV 24 hours continue till January 01 because of the second surgery Elevated sed rate CRP will be followed Await transfer to rehab if approved and bed available 12/04/2019 Rocephin 2 g IV every 24 hours CBC CMP sed rate CRP Rehab referral with Dr. Lopez here if possible We will discuss with podiatry I have discussed with hospitalist OR cultures normal chalino negative AFB and fungus Blood cultures negative so far 12/01/2019 Continue Rocephin till further cultures available CBC CMP sed rate CRP Blood cultures x2 half an hour apart He did bleed well even in the wound clinic yesterday at some point will order arterial Dopplers I have discussed with podiatry at length 11/30/2019 Culture the pin site that is bleeding and draining Follow-up CBC Liver function test Rocephin 2 g IV every 24 hours continue till December 18 May need to go up to additional 2 weeks afterMar which will be January 01 we will decide based on lab results and clinical response If the culture of the pin site shows any additional pathogens may need to readmit for additional IVantibiotics and streamlining treatment Revisit 1 week both I have discussed with podiatry Chief Complaint/Reason for Visit: I am seeing this patient at the request of Dr. Boogie Phan MD. I have reviewed the current hospital record, available laboratory, cardiology and imaging studies as well as available out patient records. History of Present Illness: Admission H&P by Boogie Phan MD on 11/30/2019: Dyllan Huertas is a 59 y.o. male presenting from home with h/o diabetes on disability since 2014 related to a Charcot foot and diabetes developed an ulcer in the beginning of 2018 was being followed by Dr. Robles at the office we have cultures from last year in January with Enterobacter and since then culture with gram-negative bacteria also was seen by Dr. Mora was found to have severe Charcot a corrective surgery was done with placement of an external fixator on 11/20. Today at wound clinic follow up was found to have increased drainage from one of the pin sites, being admitted for continued IV ATB and possible OR/ exploration in am. Exam: Tmax: 99 Urine Output: 2000 Stool: not recorded There were no vitals filed for this visit. Allergies: no known allergies. Current Outpatient Medications: alteplase (CATH AMANDO) 2 mg injection, Instill 2mL into clotted IV line as needed for brake liner. May repeat as needed. Do not use on Peripheral or Midlines ., Disp: 2 mL, Rfl: 52 calcium carbonate 400 mg Chew, Chew and Swallow 1,000 mg daily ., Disp: , Rfl: carvediloL (COREG) 12.5 MG tablet, Take 1 (one) tablet (12.5 mg total) by mouth 2 (two) times a day., Disp: 60 tablet, Rfl: 0 docusate sodium (COLACE) 100 MG capsule, Take 100 mg by mouth daily ., Disp: , Rfl: doxycycline hyclate (VIBRAMYCIN) 100 MG capsule, Take 1 (one) capsule (100 mg total) by mouth 2 (two) times a day Stay out of the sun. ., Disp: 60 capsule, Rfl: 1 FENOFIBRATE MICRONIZED ORAL, Take 160 mg by mouth daily ., Disp: , Rfl: finasteride (PROSCAR) 5 mg tablet, Take 2.5 mg by mouth every night at bedtime Wednesday,WED,WED ., Disp: , Rfl: gabapentin (NEURONTIN) 300 MG capsule, gabapentin GABAPENTIN 300 MG CAPS One tablet by mouth daily GABAPENTIN [id number] Sebastián Dailey MD 06-15-2017 [facility] ([id number]), Disp: , Rfl: heparin, porcine, PF, 100 unit/mL Syrg, For Open Ended Midline/PICC/CVC/Port: Flush with 5ml heparin as final flush after each use, weekly if not used. Use 3ml for Peripheral IV ., Disp: 100 Syringe,Rfl: 52 insulin NPH (HumuLIN,NovoLIN) 100 unit/mL injection, Take 30 units with breakfast, and 26 units at bedtime ., Disp: 20 mL, Rfl: 12 insulin regular (HumuLIN R, NovoLIN R) 100 unit/mL injection, Take 12 units three times daily before meals ., Disp: 20 mL, Rfl: 5 levothyroxine (SYNTHROID, LEVOTHROID) 112 MCG tablet, once daily ., Disp: , Rfl: magnesium oxide (MAG-OX) 400 mg (241.3 mg magnesium) tablet, Take 400 mg by mouth daily ., Disp: , Rfl: melatonin 5 mg Tab, Take 10 mg by mouth daily ., Disp: , Rfl: metFORMIN (GLUCOPHAGE-XR) 500 MG 24 hr tablet, 1,000 mg 2 (two) times a day ., Disp: , Rfl: multivitamin (THERAGRAN) per tablet, Take 1 tablet by mouth daily ., Disp: , Rfl: nitroGLYCERIN (NITROSTAT) 0.4 MG SL tablet, Place 1 (one) tablet (0.4 mg total) under the tongue every 5 (five) minutes as needed for chest pain , if no relief after 3 doses call 911 ., Disp: 90 tablet, Rfl: 12 rosuvastatin (CRESTOR) 20 MG tablet, 20 mg daily ., Disp: , Rfl: tamsulosin (FLOMAX) 0.4 mg capsule, tamsulosin TAMSULOSIN HCL 0.4 MG CAPS One tablet by mouth [id number] TAMSULOSIN HCL [id number] Sebastián Dailey MD 06-15-2017 [facility] ([id number]), Disp: , Rfl: PMH/PSH/SH/FH reviewed, no change except: Status post surgical intervention by Dr. Mora on 12/02/2019 12/05/2019 Patient was seen by rehab physician rehab evaluation in progress patient's left ankle is at risk because of right foot surgery and diabetic neuropathy in the left foot also 12/07/2019 patient is now in rehab Review of Systems: All systems were reviewed and negative except: Denies any fever chills no pain in the right leg and foot 12/06/2019 denies any fever chills or diarrhea 12/08/2019 Schulte had to be reinserted for urinary increase residual 12/11/2019 Dressing was changed by Dr. Mora on Wednesday there was some drainage culture was done there was some maceration culture result is normal chalino Dr. Mora's note was reviewed by me Medications Reviewed. Chart Reviewed. BP 110/74 Pulse 96 Temp 97.2 F (36.2 C) (Skin) Resp 16 Exam Findings: Constitutional: HENT: Pupils reactive head: No oral candidiasis Eyes: No icterus Neck: Supple Cardiovascular: Heart S1-S2 2 by systolic murmur present no S3 Murmur Pulmonary/Chest: Clear Abdominal: Soft Musculoskeletal: No calf tenderness on the right leg Neurological: Has diabetic neuropathy with Charcot is able to wiggle the toes Skin no redness or cellulitis noted on the plantar foot area Schulte: Patient does have a Schulte catheter followed by urology January 02 Dr. Izquierdo the Schulte catheter was changed at the last visit IV: None other: External fixator in place no drainage noted on the dressing wound to be examined by podiatrytoday Pin sites without any bleeding The plantar foot wound looks excellent no cellulitis noted pin sites with no drainage the plantar foot wound looks almost healed up completely Plantar foot area is now superficial epithelializing no cellulitis Wound (Outpatient Only) 03/31/19 Foot Anterior;Right;Plantar (Active) Wound Image 01/19/2020 7:00 AM Wound Length (cm) 0.8 cm 01/19/2020 7:00 AM Wound Width (cm) 3 cm 01/19/2020 7:00 AM Wound Depth (cm) 0.5 cm 01/19/2020 7:00 AM Wound Surface Area (cm^2) 2.4 cm^2 01/19/2020 7:00 AM Wound Volume (cm^3) 1.2 cm^3 01/19/2020 7:00 AM Area % Change -40 01/19/2020 7:00 AM Volume % Change 0 01/19/2020 7:00 AM Tunneling Maximum Distance (cm) 0 cm 01/19/2020 7:00 AM Tunneling Position (o'clock) 0 01/19/2020 7:00 AM Undermining Maximum Distance (cm) 1 0 cm 01/19/2020 7:00 AM Undermining Starting Position (o'clock) 1 0 01/19/2020 7:00 AM Undermining Ending Position (o'clock) 1 0 01/19/2020 7:00 AM Wound Encounter Subsequent 01/19/2020 7:00 AM Wound Progress Improving 01/19/2020 7:00 AM Non-staged Wound Description Partial thickness 01/19/2020 7:00 AM Drainage Amount Scant 01/19/2020 7:00 AM Drainage Description Yellow 01/19/2020 7:00 AM Odor None 01/19/2020 7:00 AM Wound Margin Attached to wound base 01/19/2020 7:00 AM Adherent Yellow Slough % 1-25% 01/19/2020 7:00 AM Moist Yellow Slough % 1-25% 01/19/2020 7:00 AM Dry Black Eschar % None 01/19/2020 7:00 AM Moist Black Eschar % None 01/19/2020 7:00 AM Epithelialization % 51-75% 01/19/2020 7:00 AM Granulation % None;51-75%;[place] 01/19/2020 7:00 AM Exposed Structure None 01/19/2020 7:00 AM Wound Bed Characteristics Clean;Intact;Granulation tissue;[place] 01/19/2020 7:00 AM Wound Closure Sutures 12/28/2019 8:15 AM Angeli-wound Assessment Temperature WNL;Edema 01/19/2020 7:00 AM Treatments Not Applicable 01/19/2020 7:00 AM Hemostasis Not applicable 01/19/2020 7:00 AM Cleansed Soap and water 01/19/2020 7:00 AM Primary Dressing Collagen with silver 01/19/2020 7:00 AM Secondary Dressing Gauze pad;Gauze roll;Dry gauze dressing 01/19/2020 7:00 AM Compression Dressing Zechariah wrap 01/19/2020 7:00 AM Wound 12/14/19 Pressure Injury Great Toe;Toe Anterior;Right (Active) Wound Image 01/26/2020 7:00 AM Wound Length (cm) 0.8 cm 01/26/2020 7:00 AM Wound Width (cm) 0.8 cm 01/26/2020 7:00 AM Wound Depth (cm) 0 cm 01/26/2020 7:00 AM Wound Surface Area (cm^2) 0.64 cm^2 01/26/2020 7:00 AM Wound Volume (cm^3) 0 cm^3 01/26/2020 7:00 AM Area % Change -20 01/26/2020 7:00 AM Tunneling Maximum Distance (cm) 0 cm 01/26/2020 7:00 AM Tunneling Position (o'clock) 0 01/26/2020 7:00 AM Tunneling Maximum Distance (cm) 0 cm 01/26/2020 7:00 AM Tunneling Position (o'clock) 0 01/26/2020 7:00 AM Undermining Maximum Distance (cm) 1 0 cm 01/26/2020 7:00 AM Undermining Starting Position (o'clock) 1 0 01/26/2020 7:00 AM Undermining Ending Position (o'clock) 1 0 01/26/2020 7:00 AM Undermining Maximum Distance (cm) 2 0 cm 01/26/2020 7:00 AM Undermining Starting Position (o'clock) 2 0 01/26/2020 7:00 AM Undermining Ending Position (o'clock) 2 0 01/26/2020 7:00 AM Wound Progress Improving 01/26/2020 7:00 AM State of Healing Eschar 01/12/2020 7:00 AM Non-staged Wound Description Eschar covered 01/26/2020 7:00 AM Drainage Amount None 01/26/2020 7:00 AM Odor None 01/26/2020 7:00 AM Wound Margin Attached to wound base 01/26/2020 7:00 AM Adherent Yellow Slough % None 01/26/2020 7:00 AM Moist Yellow Slough % None 01/26/2020 7:00 AM Dry Black Eschar % 76-100% 01/26/2020 7:00 AM Moist Black Eschar % None 01/26/2020 7:00 AM Epithelialization % 51-75% 01/26/2020 7:00 AM Granulation % None 01/26/2020 7:00 AM Exposed Structure None 01/26/2020 7:00 AM Wound Bed Characteristics Clean;Intact;Dry 01/26/2020 7:00 AM Angeli-wound Assessment Temperature WNL 01/26/2020 7:00 AM Treatments Not Applicable 01/26/2020 7:00 AM Hemostasis Not applicable 12/21/2019 8:00 AM Cleansed Soap and water 01/26/2020 7:00 AM Primary Dressing Collagen with silver 01/19/2020 7:00 AM Compression Dressing Not Applicable 01/19/2020 7:00 AM Wound 01/12/20 3 Acute Abrasion(s) Third Toe Right;Medial (Active) Wound Image 01/26/2020 7:00 AM Wound Length (cm) 0 cm 01/26/2020 7:00 AM Wound Width (cm) 0 cm 01/26/2020 7:00 AM Wound Depth (cm) 0 cm 01/26/2020 7:00 AM Wound Surface Area (cm^2) 0 cm^2 01/26/2020 7:00 AM Wound Volume (cm^3) 0 cm^3 01/26/2020 7:00 AM Area % Change -100 01/26/2020 7:00 AM Tunneling Maximum Distance (cm) 0 cm 01/26/2020 7:00 AM Tunneling Position (o'clock) 0 01/26/2020 7:00 AM Tunneling Maximum Distance (cm) 0 cm 01/26/2020 7:00 AM Tunneling Position (o'clock) 00 01/26/2020 7:00 AM Undermining Maximum Distance (cm) 1 0 cm 01/26/2020 7:00 AM Undermining Starting Position (o'clock) 1 0 01/26/2020 7:00 AM Undermining Ending Position (o'clock) 1 0 01/26/2020 7:00 AM Undermining Maximum Distance (cm) 2 0 cm 01/26/2020 7:00 AM Undermining Starting Position (o'clock) 2 0 01/26/2020 7:00 AM Undermining Ending Position (o'clock) 2 0 01/26/2020 7:00 AM Wound Progress Improving 01/26/2020 7:00 AM Non-staged Wound Description Partial thickness 01/19/2020 7:00 AM Drainage Amount None 01/26/2020 7:00 AM Drainage Description Yellow 01/19/2020 7:00 AM Odor None 01/26/2020 7:00 AM Wound Margin Attached to wound base 01/19/2020 7:00 AM Adherent Yellow Slough % None 01/19/2020 7:00 AM Moist Yellow Slough % None 01/26/2020 7:00 AM Dry Black Eschar % None 01/26/2020 7:00 AM Moist Black Eschar % None 01/26/2020 7:00 AM Epithelialization % 76-100% 01/26/2020 7:00 AM Granulation % None 01/26/2020 7:00 AM Exposed Structure None 01/26/2020 7:00 AM Wound Bed Characteristics Clean;Dry;Intact 01/26/2020 7:00 AM Angeli-wound Assessment Temperature WNL 01/26/2020 7:00 AM Treatments Not Applicable 01/26/2020 7:00 AM Hemostasis Not applicable 01/26/2020 7:00 AM Cleansed Soap and water 01/26/2020 7:00 AM Primary Dressing Collagen with silver 01/19/2020 7:00 AM Compression Dressing Not Applicable 01/19/2020 7:00 AM Wound 01/23/20 3 Chronic Diabetic Ulcer Foot Plantar (Active) Wound Image 01/26/2020 7:00 AM Wound Length (cm) 0.5 cm 01/26/2020 7:00 AM Wound Width (cm) 2.9 cm 01/26/2020 7:00 AM Wound Depth (cm) 0.4 cm 01/26/2020 7:00 AM Wound Surface Area (cm^2) 1.45 cm^2 01/26/2020 7:00 AM Wound Volume (cm^3) 0.58 cm^3 01/26/2020 7:00 AM Area % Change 0 01/26/2020 7:00 AM Wound Healing % 70 01/26/2020 7:00 AM Tunneling Maximum Distance (cm) 0 cm 01/26/2020 7:00 AM Tunneling Position (o'clock) 0 01/26/2020 7:00 AM Tunneling Maximum Distance (cm) 0 cm 01/26/2020 7:00 AM Tunneling Position (o'clock) 0 01/26/2020 7:00 AM Undermining Maximum Distance (cm) 1 0 cm 01/26/2020 7:00 AM Undermining Starting Position (o'clock) 1 0 01/26/2020 7:00 AM Undermining Ending Position (o'clock) 1 0 01/26/2020 7:00 AM Undermining Maximum Distance (cm) 2 0 cm 01/26/2020 7:00 AM Undermining Starting Position (o'clock) 2 0 01/26/2020 7:00 AM Wound Progress Improving 01/26/2020 7:00 AM Non-staged Wound Description Partial thickness 01/26/2020 7:00 AM Drainage Amount Scant 01/26/2020 7:00 AM Drainage Description Yellow 01/26/2020 7:00 AM Odor None 01/26/2020 7:00 AM Wound Margin Attached to wound base 01/26/2020 7:00 AM Adherent Yellow Slough % None 01/26/2020 7:00 AM Moist Yellow Slough % None 01/26/2020 7:00 AM Dry Black Eschar % None 01/26/2020 7:00 AM Moist Black Eschar % None 01/26/2020 7:00 AM Epithelialization % 51-75% 01/26/2020 7:00 AM Granulation % 51-75% 01/26/2020 7:00 AM Exposed Structure None 01/26/2020 7:00 AM Wound Bed Characteristics Clean;Intact;Granulation tissue 01/26/2020 7:00 AM Angeli-wound Assessment Temperature WNL 01/26/2020 7:00 AM Hemostasis Not applicable 01/26/2020 7:00 AM Cleansed Soap and water 01/26/2020 7:00 AM Laboratory and Additional Data Reviewed: Date: 01/26/2020 No new labs/ results as of last note: 01/19/2020 Update from previous note Current Antibiotic: Doxycycline 100 mg PO daily for 6 weeks - Started 01/03/2020 Previous Antibiotic: Doxycycline 100 mg BID for 6 weeks - Start 01/03/2020 Merrem 1,000 mg IV every 12 Hours until January 02, 2020 ([facility]) Rocephin 2 gm IV every 24 Hours Ancef 2,000 mg IV every 8 Hours Pre/Post Procedure Dressings: Right foot - Clean pins and wires with alcohol and paint with betadine. Kb to right great toe an plantar foot. Per Dr. Mora. Current culture: 12/28/2019 - Right foot, aerobic culture: Normal Chal[place] after 48 hours. Recent Cultures: 12/21/2019 - Right foot, aerobic - normal chalino after 48 hours 12/21/2019 - Right foot, anaerobic: No anaerobic growth at 2 days. 12/10/2019 Right Foot Wound Aerobic Culture: Normal [place] After 48 Hours. Final 12/10/2019 Right foot wound, anaerobic culture: No anaerobic growth at 2 days. Final 12/08/2019 Urine Aerobic Culture: No Growth (<1,000 CFU/mL). Final. 12/07/2019 Urine Aerobic Culture on arrival to Nursing Rehab Unit: No Growth (<1,000 CFU/mL). Final. 12/02/2019 Right Foot Tissue Aerobic Culture: Normal [place] After 48 Hours. Final. 12/02/2019 Right Foot Tissue AFB Culture: No Acid Fast Bacilli Seen. Preliminary. 12/02/2019 Right Foot Tissue Anaerobic Culture: No Anaerobic Growth at 2 Days. Final. 12/02/2019 Right Foot Tissue Fungus Culture: No fungus isolated at 4 weeks. Final. 12/01/2019 Blood Culture #1: No Growth After 5 Days. Final. 12/01/2019 Blood Culture #2: No Growth After 5 Days. Final. 11/30/2019 Right Foot Wound Aerobic Culture: Normal [place] After 48 Hours. Final. 11/21/2019 Left Leg Wound Aerobic Culture: Normal [place] After 48 Hours. Final. 11/20/2019 Right Foot Tissue Aerobic Culture: Moderate Growth Enterobacter cloacae complex, S=Youssef Sensitive. Final. 11/20/2019 Right Foot Tissue Anaerobic Culture: No Anaerobic Growth at 2 Days. Final. 11/20/2019 Right Foot Bone Aerobic Culture: Light Growth Enterobacter Cloacae Complex, S=Youssef Sensitive. Final. 11/20/2019 Right Foot Bone Anaerobic Culture: No Anaerobic Growth at 2 Days. Final January 19, 2020 12/28/2019 sed rate 33 CRP 6.4 WBC 4.6 culture on 12/28/2019 Gram stain negative culture normal chalino Date: 01/12/2020 New labs/ results as of last note: 12/28/2019 CBC Auto Differential Order: [id number] - Part of Panel Order [id number] Status: Final result Visible to patient: No (Not Released) Next appt: 01/12/2020 at 07:45 AM in Wound Care (Alena Mora DPM) Dx: Acute osteomyelitis (HCC); Elevated C... Component Ref Range & Units 12d ago (12/28/19) 3wk ago (12/18/19) 4wk ago (12/12/19) 1mo ago (12/07/19) 1mo ago (12/05/19) 1mo ago (12/02/19) 1mo ago (12/01/19) WBC 4.50 - 11.00 K/mcL 4.66 6.38 4.12Low 6.95 7.98 9.43 8.56 RBC 4.50 - 5.90 M/mcL 4.42Low 4.44Low 4.13Low 4.23Low 4.22Low 4.29Low 4.09Low Hemoglobin 13.5 - 17.5 g/dL 11.6Low 11.7Low 10.8Low 11.3Low 11.4Low 11.5Low 11.2Low Hematocrit 41.0 - 53.0 % 38.0Low 37.8Low 35.6Low 36.8Low 36.3Low 36.7Low 35.6Low MCV 80.0 - 100.0 fL 86.0 85.1 86.2 87.0 86.0 85.5 87.0 MCH 26.0 - 34.0 pg 26.2 26.4 26.2 26.7 27.0 26.8 27.4 MCHC 31.0 - 37.0 g/dL 30.5Low 31.0 30.3Low 30.7Low 31.4 31.3 31.5 Platelets 150 - 400 K/mcL 182 323 203 210 228 235 232 Comprehensive Metabolic Panel Order: [id number] Status: Final result Visible to patient: No (Not Released) Next appt: 01/12/2020 at 07:45 AM in Wound Care (Alena Mora DPM) Dx: Acute osteomyelitis (HCC); Elevated C... Component Ref Range & Units 12d ago (12/28/19) 3wk ago (12/18/19) 4wk ago (12/12/19) 1mo ago (12/07/19) 1mo ago (12/05/19) 1mo ago (12/02/19) 1mo ago (12/01/19) Sodium 135 - 145 mmol/L 142 142 140 138 139 137 140 Potassium 3.5 - 5.1 mmol/L 4.3 4.5 4.3 3.9 4.1 4.7 5.0 Chloride 98 - 108 mmol/L 109High 106 106 104 104 102 106 Bicarbonate 21 - 32 mmol/L 31 25 30 29 30 30 30 Anion Gap 10 - 20 mmol/L 6Low 16 8Low 9Low 9Low 10 9Low Glucose 65 - 99 mg/dL 135High 82 167High 243High 223High 256High 223High BUN 8 - 25 mg/dL 18 23 26High 17 19 19 22 Creatinine 0.50 - 1.30 mg/dL 0.71 1.04 0.89 0.86 0.86 1.06 0.98 eGFR >=60 mL/min/1.73 m2 104 79 95 96 96 78 85 BUN/Creatinine Ratio 10.0 - 20.0 25.4High 22.1High 29.2High 19.8 22.1High 17.9 22.4High Total Protein 6.0 - 8.0 g/dL 7.0 7.2 6.7 6.6 6.4 6.7 Albumin 3.2 - 5.2 g/dL 3.1Low 3.0Low 2.5Low 2.4Low 2.4Low 2.4Low Calcium 8.4 - 10.2 mg/dL 9.2 9.6 9.7 9.4 9.1 9.2 9.1 Alkaline Phosphatase 40 - 150 U/L 93 94 83 76 75 82 AST 0 - 45 U/L 16 20 35 28 20 32 Total Bilirubin 0.0 - 1.3 mg/dL 0.4 0.3 0.3 0.4 0.4 0.4 ALT 14 - 65 U/L 19 27 52 40 31 53 Resulting Agency Lab Lab Lab Lab Lab Lab Lab CRP, Inflammation Order: [id number] Status: Final result Visible to patient: No (Not Released) Next appt: 01/12/2020 at 07:45 AM in Wound Care (Alena Mora DPM) Dx: Acute osteomyelitis (HCC); Elevated C... Component Ref Range & Units 12d ago (12/28/19) 3wk ago (12/18/19) 4wk ago (12/12/19) 1mo ago (12/05/19) 1mo ago (12/02/19) 1mo ago (11/27/19) CRP(Inflammation) <=10.0 mg/L 6.4 18.7High 52.4High 85.3High 76.1High 69.0High Sedimentation Rate Order: [id number] Status: Final result Visible to patient: No (Not Released) Next appt: 01/12/2020 at 07:45 AM in Wound Care (Alena Mora DPM) Dx: Acute osteomyelitis (HCC); Elevated C... Component Ref Range & Units 12d ago (12/28/19) 3wk ago (12/18/19) 4wk ago (12/12/19) 1mo ago (12/05/19) 1mo ago (12/02/19) 1mo ago (11/27/19) Sed Rate 0 - 20 mm/hr 33High 72High 91High 85High 93High 94High Update from previous note Current Antibiotic: Doxycycline 100 mg PO BID for 6 weeks - Start 01/03/2020 Previous Antibiotic: Merrem 1,000 mg IV every 12 Hours until January 02, 2020 ([facility]) Rocephin 2 gm IV every 24 Hours Ancef 2,000 mg IV every 8 Hours Pre/Post Procedure Dressings: Per Dr. Mora Current culture: 12/28/2019 - Right foot, aerobic culture: Normal [place] after 48 hours. Recent Cultures: 12/21/2019 - Right foot, aerobic - normal chalino after 48 hours 12/21/2019 - Right foot, anaerobic: No anaerobic growth at 2 days. 12/10/2019 Right Foot Wound Aerobic Culture: Normal [place] After 48 Hours. Final 12/10/2019 Right foot wound, anaerobic culture: No anaerobic growth at 2 days. Final 12/08/2019 Urine Aerobic Culture: No Growth (<1,000 CFU/mL). Final. 12/07/2019 Urine Aerobic Culture on arrival to Nursing Rehab Unit: No Growth (<1,000 CFU/mL). Final. 12/02/2019 Right Foot Tissue Aerobic Culture: Normal [place] After 48 Hours. Final. 12/02/2019 Right Foot Tissue AFB Culture: No Acid Fast Bacilli Seen. Preliminary. 12/02/2019 Right Foot Tissue Anaerobic Culture: No Anaerobic Growth at 2 Days. Final. 12/02/2019 Right Foot Tissue Fungus Culture: No fungus isolated at 4 weeks. Final. 12/01/2019 Blood Culture #1: No Growth After 5 Days. Final. 12/01/2019 Blood Culture #2: No Growth After 5 Days. Final. 11/30/2019 Right Foot Wound Aerobic Culture: Normal [place] After 48 Hours. Final. 11/21/2019 Left Leg Wound Aerobic Culture: Normal [place] After 48 Hours. Final. 11/20/2019 Right Foot Tissue Aerobic Culture: Moderate Growth Enterobacter cloacae complex, S=Youssef Sensitive. Final. 11/20/2019 Right Foot Tissue Anaerobic Culture: No Anaerobic Growth at 2 Days. Final. 11/20/2019 Right Foot Bone Aerobic Culture: Light Growth Enterobacter Cloacae Complex, S=Youssef Sensitive. Final. 11/20/2019 Right Foot Bone Anaerobic Culture: No Anaerobic Growth at 2 Days. Final Date: 12/28/2019 New labs/ results as of last note: 12/21/2019 Labs unable to be drawn by Home Health nurse 12/25/2019 I have personally reviewed all labs and other results Labs: Current Culture: 12/21/2019 - Right foot, aerobic - normal chalino after 48 hours 12/21/2019 - Right foot, anaerobic: No anaerobic growth at 2 days. Update from previous note Current Antibiotics: Merrem 1,000 mg IV every 12 Hours until January 02, 2020 ([facility]) Previous Antibiotic: Rocephin 2 gm IV every 24 Hours Ancef 2,000 mg IV every 8 Hours Pre/Post Procedure Dressings: Per Dr. Mora Recent Cultures: 12/10/2019 Right Foot Wound Aerobic Culture: Normal [place] After 48 Hours. Final 12/10/2019 Right foot wound, anaerobic culture: No anaerobic growth at 2 days. Final 12/08/2019 Urine Aerobic Culture: No Growth (<1,000 CFU/mL). Final. 12/07/2019 Urine Aerobic Culture on arrival to Nursing Rehab Unit: No Growth (<1,000 CFU/mL). Final. 12/02/2019 Right Foot Tissue Aerobic Culture: Normal Chal[place] After 48 Hours. Final. 12/02/2019 Right Foot Tissue AFB Culture: No Acid Fast Bacilli Seen. Preliminary. 12/02/2019 Right Foot Tissue Anaerobic Culture: No Anaerobic Growth at 2 Days. Final. 12/02/2019 Right Foot Tissue Fungus Culture: Fungal Culture in Progress. Preliminary. 12/01/2019 Blood Culture #1: No Growth After 5 Days. Final. 12/01/2019 Blood Culture #2: No Growth After 5 Days. Final. 11/30/2019 Right Foot Wound Aerobic Culture: Normal Chal[place] After 48 Hours. Final. 11/21/2019 Left Leg Wound Aerobic Culture: Normal Chal[place] After 48 Hours. Final. 11/20/2019 Right Foot Tissue Aerobic Culture: Moderate Growth Enterobacter cloacae complex, S=Youssef Sensitive. Final. 11/20/2019 Right Foot Tissue Anaerobic Culture: No Anaerobic Growth at 2 Days. Final. 11/20/2019 Right Foot Bone Aerobic Culture: Light Growth Enterobacter Cloacae Complex, S=Youssef Sensitive. Final. 11/20/2019 Right Foot Bone Anaerobic Culture: No Anaerobic Growth at 2 Days. Final Date: 12/21/2019 No new labs/ results as of last note: 12/18/2019 Update from previous note Current Antibiotics: Merrem 1,000 mg IV every 12 Hours until January 02, 2020 ([facility]) Previous Antibiotic: Rocephin 2 gm IV every 24 Hours Ancef 2,000 mg IV every 8 Hours Pre/Post Procedure Dressings: Per Dr. Mora Current Cultures: 12/10/2019 Right Foot Wound Aerobic Culture: Normal [place] After 48 Hours. Final 12/10/2019 Right foot wound, anaerobic culture: No anaerobic growth at 2 days. Final 12/08/2019 Urine Aerobic Culture: No Growth (<1,000 CFU/mL). Final. 12/07/2019 Urine Aerobic Culture on arrival to Nursing Rehab Unit: No Growth (<1,000 CFU/mL). Final. 12/02/2019 Right Foot Tissue Aerobic Culture: Normal [place] After 48 Hours. Final. 12/02/2019 Right Foot Tissue AFB Culture: No Acid Fast Bacilli Seen. Preliminary. 12/02/2019 Right Foot Tissue Anaerobic Culture: No Anaerobic Growth at 2 Days. Final. 12/02/2019 Right Foot Tissue Fungus Culture: Fungal Culture in Progress. Preliminary. 12/01/2019 Blood Culture #1: No Growth After 5 Days. Final. 12/01/2019 Blood Culture #2: No Growth After 5 Days. Final. 11/30/2019 Right Foot Wound Aerobic Culture: Normal Chalino After 48 Hours. Final. 11/21/2019 Left Leg Wound Aerobic Culture: Normal Chal[place] After 48 Hours. Final. 11/20/2019 Right Foot Tissue Aerobic Culture: Moderate Growth Enterobacter cloacae complex, S=Youssef Sensitive. Final. 11/20/2019 Right Foot Tissue Anaerobic Culture: No Anaerobic Growth at 2 Days. Final. 11/20/2019 Right Foot Bone Aerobic Culture: Light Growth Enterobacter Cloacae Complex, S=Youssef Sensitive. Final. 11/20/2019 Right Foot Bone Anaerobic Culture: No Anaerobic Growth at 2 Days. Final Date: 12/19/2019 No new labs/results as of last note Update from previous note Tmax: 98.5 Urine Output: 2400 Stool: X1 Current Antibiotics: Merrem 1,000 mg IV every 12 Hours until January 02, 2020 Previous Antibiotic: Rocephin 2 gm IV every 24 Hours Ancef 2,000 mg IV every 8 Hours Pre/Post Procedure Dressings: Per Dr. Mora I have personally reviewed the labs and results Test results Laboratory and Additional Data Reviewed: Labs to de drawn every Wednesday (CBC, CMP, Sed Rate, CRP) Current Cultures: 12/10/2019 Right Foot Wound Aerobic Culture: Normal Chal[place] After 48 Hours. Final 12/10/2019 Right foot wound, anaerobic culture: No anaerobic growth at 2 days. Final 12/08/2019 Urine Aerobic Culture: No Growth (<1,000 CFU/mL). Final. 12/07/2019 Urine Aerobic Culture on arrival to Nursing Rehab Unit: No Growth (<1,000 CFU/mL). Final. 12/02/2019 Right Foot Tissue Aerobic Culture: Normal Chal[place] After 48 Hours. Final. 12/02/2019 Right Foot Tissue AFB Culture: No Acid Fast Bacilli Seen. Preliminary. 12/02/2019 Right Foot Tissue Anaerobic Culture: No Anaerobic Growth at 2 Days. Final. 12/02/2019 Right Foot Tissue Fungus Culture: Fungal Culture in Progress. Preliminary. 12/01/2019 Blood Culture #1: No Growth After 5 Days. Final. 12/01/2019 Blood Culture #2: No Growth After 5 Days. Final. 11/30/2019 Right Foot Wound Aerobic Culture: Normal Chal[place] After 48 Hours. Final. 11/21/2019 Left Leg Wound Aerobic Culture: Normal Chalino After 48 Hours. Final. 11/20/2019 Right Foot Tissue Aerobic Culture: Moderate Growth Enterobacter cloacae complex, S=Youssef Sensitive. Final. 11/20/2019 Right Foot Tissue Anaerobic Culture: No Anaerobic Growth at 2 Days. Final. 11/20/2019 Right Foot Bone Aerobic Culture: Light Growth Enterobacter Cloacae Complex, S=Youssef Sensitive. Final. 11/20/2019 Right Foot Bone Anaerobic Culture: No Anaerobic Growth at 2 Days. Final Date: 12/18/2019 No new labs/results as of last note Update from previous note Tmax: 98.1 Urine Output: 3950 Stool: not recorded Current Antibiotics: Merrem 1,000 mg IV every 12 Hours Previous Antibiotic: Rocephin 2 gm IV every 24 Hours Ancef 2,000 mg IV every 8 Hours Pre/Post Procedure I have personally reviewed the labs and results Test results Laboratory and Additional Data Reviewed: Current Cultures: 12/10/2019 Right Foot Wound Aerobic Culture: Normal Chal[place] After 48 Hours. Final 12/10/2019 Right foot wound, anaerobic culture: No anaerobic growth at 2 days. Final 12/08/2019 Urine Aerobic Culture: No Growth (<1,000 CFU/mL). Final. 12/07/2019 Urine Aerobic Culture on arrival to Nursing Rehab Unit: No Growth (<1,000 CFU/mL). Final. 12/02/2019 Right Foot Tissue Aerobic Culture: Normal Chal[place] After 48 Hours. Final. 12/02/2019 Right Foot Tissue AFB Culture: No Acid Fast Bacilli Seen. Preliminary. 12/02/2019 Right Foot Tissue Anaerobic Culture: No Anaerobic Growth at 2 Days. Final. 12/02/2019 Right Foot Tissue Fungus Culture: Fungal Culture in Progress. Preliminary. 12/01/2019 Blood Culture #1: No Growth After 5 Days. Final. 12/01/2019 Blood Culture #2: No Growth After 5 Days. Final. 11/30/2019 Right Foot Wound Aerobic Culture: Normal Chalino After 48 Hours. Final. 11/21/2019 Left Leg Wound Aerobic Culture: Normal Chal[place] After 48 Hours. Final. 11/20/2019 Right Foot Tissue Aerobic Culture: Moderate Growth Enterobacter cloacae complex, S=Youssef Sensitive. Final. 11/20/2019 Right Foot Tissue Anaerobic Culture: No Anaerobic Growth at 2 Days. Final. 11/20/2019 Right Foot Bone Aerobic Culture: Light Growth Enterobacter Cloacae Complex, S=Youssef Sensitive. Final. 11/20/2019 Right Foot Bone Anaerobic Culture: No Anaerobic Growth at 2 Days. Final Date: 12/15/2019 New labs/results as of last note Update from previous note Tmax: 98.7 Urine Output: 1900 Stool: not recorded Current Antibiotics: Merrem 1,000 mg IV every 12 Hours Previous Antibiotic: Rocephin 2 gm IV every 24 Hours Ancef 2,000 mg IV every 8 Hours Pre/Post Procedure I have personally reviewed the labs and results Test results Laboratory and Additional Data Reviewed: Current Cultures: 12/10/2019 Right Foot Wound Aerobic Culture: Normal Chal[place] After 48 Hours. Final 12/10/2019 Right foot wound, anaerobic culture: No anaerobic growth at 2 days. Final 12/08/2019 Urine Aerobic Culture: No Growth (<1,000 CFU/mL). Final. 12/07/2019 Urine Aerobic Culture on arrival to Nursing Rehab Unit: No Growth (<1,000 CFU/mL). Final. 12/02/2019 Right Foot Tissue Aerobic Culture: Normal Chalino After 48 Hours. Final. 12/02/2019 Right Foot Tissue AFB Culture: No Acid Fast Bacilli Seen. Preliminary. 12/02/2019 Right Foot Tissue Anaerobic Culture: No Anaerobic Growth at 2 Days. Final. 12/02/2019 Right Foot Tissue Fungus Culture: Fungal Culture in Progress. Preliminary. 12/01/2019 Blood Culture #1: No Growth After 5 Days. Final. 12/01/2019 Blood Culture #2: No Growth After 5 Days. Final. 11/30/2019 Right Foot Wound Aerobic Culture: Normal Chalino After 48 Hours. Final. 11/21/2019 Left Leg Wound Aerobic Culture: Normal Chal[place] After 48 Hours. Final. 11/20/2019 Right Foot Tissue Aerobic Culture: Moderate Growth Enterobacter cloacae complex, S=Youssef Sensitive. Final. 11/20/2019 Right Foot Tissue Anaerobic Culture: No Anaerobic Growth at 2 Days. Final. 11/20/2019 Right Foot Bone Aerobic Culture: Light Growth Enterobacter Cloacae Complex, S=Youssef Sensitive. Final. 11/20/2019 Right Foot Bone Anaerobic Culture: No Anaerobic Growth at 2 Days. Final Date: 12/14/2019 New labs/ results as of last note: 12/12/2019 T-Max: 98.6 Output: Urine 2150 ml Stool not recorded Current Antibiotics: Merrem 1,000 mg IV every 12 Hours Previous Antibiotic: Rocephin 2 gm IV every 24 Hours Ancef 2,000 mg IV every 8 Hours Pre/Post Procedure I have personally reviewed the labs and results Test results Laboratory and Additional Data Reviewed: Current Cultures: 12/10/2019 Right Foot Wound Aerobic Culture: Normal Chalino After 48 Hours. Final 12/10/2019 Right foot wound, anaerobic culture: No anaerobic growth at 2 days. Final 12/08/2019 Urine Aerobic Culture: No Growth (<1,000 CFU/mL). Final. 12/07/2019 Urine Aerobic Culture on arrival to Nursing Rehab Unit: No Growth (<1,000 CFU/mL). Final. 12/02/2019 Right Foot Tissue Aerobic Culture: Normal Chalino After 48 Hours. Final. 12/02/2019 Right Foot Tissue AFB Culture: No Acid Fast Bacilli Seen. Preliminary. 12/02/2019 Right Foot Tissue Anaerobic Culture: No Anaerobic Growth at 2 Days. Final. 12/02/2019 Right Foot Tissue Fungus Culture: Fungal Culture in Progress. Preliminary. 12/01/2019 Blood Culture #1: No Growth After 5 Days. Final. 12/01/2019 Blood Culture #2: No Growth After 5 Days. Final. 11/30/2019 Right Foot Wound Aerobic Culture: Normal Chalino After 48 Hours. Final. 11/21/2019 Left Leg Wound Aerobic Culture: Normal Chalino After 48 Hours. Final. 11/20/2019 Right Foot Tissue Aerobic Culture: Moderate Growth Enterobacter cloacae complex, S=Youssef Sensitive. Final. 11/20/2019 Right Foot Tissue Anaerobic Culture: No Anaerobic Growth at 2 Days. Final. 11/20/2019 Right Foot Bone Aerobic Culture: Light Growth Enterobacter Cloacae Complex, S=Youssef Sensitive. Final. 11/20/2019 Right Foot Bone Anaerobic Culture: No Anaerobic Growth at 2 Days. Final Update from previous note Date: 12/12/2019 New labs/results as of last note Update from previous note Tmax: 99.2 Urine Output: 1600 Stool: not recorded Current Antibiotics: Merrem 1,000 mg IV every 12 Hours Previous Antibiotic: Rocephin 2 gm IV every 24 Hours Ancef 2,000 mg IV every 8 Hours Pre/Post Procedure I have personally reviewed the labs and results Test results Laboratory and Additional Data Reviewed: Labs: CMP 12/12/2019 06:11 Glucose: 167 BUN: 26 Creatinine: 0.89 Sodium: 140 Potassium: 4.3 Total Protein: 6.7 Albumin: 2.5 Alk Phos: 83 AST: 35 ALT: 52 Total Bilirubin: 0.3 CBC 12/12/2019 06:11 WBC: 4.12 RBC: 4.13 Hgb: 10.8 Hct: 35.6 Platelets: 203 Lymphocytes Abs: 0.66 CRP 12/12/2019 06:11 52.4 Current Cultures: 12/10/2019 Right Foot Wound Aerobic Culture: Normal Chalino After 24 Hours. Preliminary. 12/08/2019 Urine Aerobic Culture: No Growth (<1,000 CFU/mL). Final. 12/07/2019 Urine Aerobic Culture on arrival to Nursing Rehab Unit: No Growth (<1,000 CFU/mL). Final. 12/02/2019 Right Foot Tissue Aerobic Culture: Normal Chalino After 48 Hours. Final. 12/02/2019 Right Foot Tissue AFB Culture: No Acid Fast Bacilli Seen. Preliminary. 12/02/2019 Right Foot Tissue Anaerobic Culture: No Anaerobic Growth at 2 Days. Final. 12/02/2019 Right Foot Tissue Fungus Culture: Fungal Culture in Progress. Preliminary. 12/01/2019 Blood Culture #1: No Growth After 5 Days. Final. 12/01/2019 Blood Culture #2: No Growth After 5 Days. Final. 11/30/2019 Right Foot Wound Aerobic Culture: Normal Chalino After 48 Hours. Final. 11/21/2019 Left Leg Wound Aerobic Culture: Normal Chalino After 48 Hours. Final. 11/20/2019 Right Foot Tissue Aerobic Culture: Moderate Growth Enterobacter cloacae complex, S=Youssef Sensitive. Final. 11/20/2019 Right Foot Tissue Anaerobic Culture: No Anaerobic Growth at 2 Days. Final. 11/20/2019 Right Foot Bone Aerobic Culture: Light Growth Enterobacter Cloacae Complex, S=Youssef Sensitive. Final. 11/20/2019 Right Foot Bone Anaerobic Culture: No Anaerobic Growth at 2 Days. Final. Date: 12/11/2019 New labs/results as of last note Update from previous note Tmax: 98.7 Urine Output: 2500 Stool: X1 Current Antibiotics: Rocephin 2 gm IV every 24 Hours until 01/02/2020 Previous Antibiotic: Ancef 2,000 mg IV every 8 Hours Pre/Post Procedure I have personally reviewed the labs and results Test results Laboratory and Additional Data Reviewed: U/A 12/08/2019 Glucose: 150 Blood: Small WBC: 7 Bacteria: Rare Labs: Vitamin D, Total 12/07/2019 04:55 16 B12/Folate 12/07/2019 04:55 B12: 828 Folate: >20.0 Ferritin 12/07/2019 04:55 211 Iron 12/07/2019 04:55 30 CMP 12/07/2019 04:55 Glucose: 243 BUN: 17 Creatinine: 0.86 Sodium: 138 Potassium: 3.9 Total Protein: 6.6 Albumin: 2.4 Alk Phos: 76 AST: 28 ALT: 40 Total Bilirubin: 0.4 CBC 12/07/2019 04:54 WBC: 6.95 Hgb: 11.3 Hct: 36.8 Platelets: 210 Lymphocytes Abs: 0.64 CRP 12/05/2019 07:58 85.3 U/A 12/07/2019 Protein: 30 Glucose: >=500 Blood: Small Leukocyte Esterase: Trace Renal Epithelial: <1 Current Cultures: 12/10/2019 Right Foot Wound Aerobic Culture: Rare WBC. Rare Epithelial Cells. No Organisms Seen. Preliminary. 12/08/2019 Urine Aerobic Culture: No Growth (<1,000 CFU/mL). Final. 12/07/2019 Urine Aerobic Culture on arrival to Nursing Rehab Unit: No Growth (<1,000 CFU/mL). Final. 12/02/2019 Right Foot Tissue Aerobic Culture: Normal Chalino After 48 Hours. Final. 12/02/2019 Right Foot Tissue AFB Culture: No Acid Fast Bacilli Seen. Preliminary. 12/02/2019 Right Foot Tissue Anaerobic Culture: No Anaerobic Growth at 2 Days. Final. 12/02/2019 Right Foot Tissue Fungus Culture: Fungal Culture in Progress. Preliminary. 12/01/2019 Blood Culture #1: No Growth After 5 Days. Final. 12/01/2019 Blood Culture #2: No Growth After 5 Days. Final. 11/30/2019 Right Foot Wound Aerobic Culture: Normal Chalino After 48 Hours. Final. 11/21/2019 Left Leg Wound Aerobic Culture: Normal Chalino After 48 Hours. Final. 11/20/2019 Right Foot Tissue Aerobic Culture: Moderate Growth Enterobacter cloacae complex, S=Youssef Sensitive. Final. 11/20/2019 Right Foot Tissue Anaerobic Culture: No Anaerobic Growth at 2 Days. Final. 11/20/2019 Right Foot Bone Aerobic Culture: Light Growth Enterobacter Cloacae Complex, S=Yosusef Sensitive. Final. 11/20/2019 Right Foot Bone Anaerobic Culture: No Anaerobic Growth at 2 Days. Final. Date: 12/08/2019 New labs/results as of last note Update from previous note Tmax: 99.2 Urine Output: 4950 Stool: not recorded Current Antibiotics: Rocephin 2 gm IV every 24 Hours until 01/02/2020 Previous Antibiotic: Ancef 2,000 mg IV every 8 Hours Pre/Post Procedure I have personally reviewed the labs and results Test results Laboratory and Additional Data Reviewed: U/A 12/08/2019 Glucose: 150 Blood: Small WBC: 7 Bacteria: Rare Labs: Vitamin D, Total 12/07/2019 04:55 16 B12/Folate 12/07/2019 04:55 B12: 828 Folate: >20.0 Ferritin 12/07/2019 04:55 211 Iron 12/07/2019 04:55 30 CMP 12/07/2019 04:55 Glucose: 243 BUN: 17 Creatinine: 0.86 Sodium: 138 Potassium: 3.9 Total Protein: 6.6 Albumin: 2.4 Alk Phos: 76 AST: 28 ALT: 40 Total Bilirubin: 0.4 CBC 12/07/2019 04:54 WBC: 6.95 Hgb: 11.3 Hct: 36.8 Platelets: 210 Lymphocytes Abs: 0.64 CRP 12/05/2019 07:58 85.3 U/A 12/07/2019 Protein: 30 Glucose: >=500 Blood: Small Leukocyte Esterase: Trace Renal Epithelial: <1 Current Cultures: 12/07/2019 Urine Aerobic Culture on arrival to Nursing Rehab Unit: No Growth, Incubation Continued.Preliminary. 12/02/2019 Right Foot Tissue Aerobic Culture: Normal Chalino After 48 Hours. Final. 12/02/2019 Right Foot Tissue AFB Culture: No Acid Fast Bacilli Seen. Preliminary. 12/02/2019 Right Foot Tissue Anaerobic Culture: No Anaerobic Growth at 2 Days. Final. 12/02/2019 Right Foot Tissue Fungus Culture: Fungal Culture in Progress. Preliminary. 12/01/2019 Blood Culture #1: No Growth After 5 Days. Final. 12/01/2019 Blood Culture #2: No Growth After 5 Days. Final. 11/30/2019 Right Foot Wound Aerobic Culture: Normal Chalino After 48 Hours. Final. 11/21/2019 Left Leg Wound Aerobic Culture: Normal Chalino After 48 Hours. Final. 11/20/2019 Right Foot Tissue Aerobic Culture: Moderate Growth Enterobacter cloacae complex, S=Youssef Sensitive. Final. 11/20/2019 Right Foot Tissue Anaerobic Culture: No Anaerobic Growth at 2 Days. Final. 11/20/2019 Right Foot Bone Aerobic Culture: Light Growth Enterobacter Cloacae Complex, S=Youssef Sensitive. Final. 11/20/2019 Right Foot Bone Anaerobic Culture: No Anaerobic Growth at 2 Days. Final. Radiology: Left Ankle X-Ray 12/07/2019 1. A new screw internally fixes the base of the 5th metatarsal to near anatomic alignment, however this screw is broken/fractured. 2. 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 Lateral subluxation of the 2nd through 5th metatarsal bases is again noted, as well as pes planus deformity. 3. Milder arthritis is noted in the tibiotalar joint and subtalar joint. 4. Large calcaneal enthesophytes are noted at the insertion sites of the plantar fascia and Achilles tendon. 5. No acute fracture, or other acute bony abnormality is seen. Date: 12/07/2019 New labs/results as of last note Update from previous note Tmax: 99.1 Urine Output: 1800 Stool: not recorded Current Antibiotics: Rocephin 2 gm IV every 24 Hours until 01/02/2020 Previous Antibiotic: Ancef 2,000 mg IV every 8 Hours Pre/Post Procedure I have personally reviewed the labs and results Test results Laboratory and Additional Data Reviewed: Labs: Vitamin D, Total 12/07/2019 04:55 16 B12/Folate 12/07/2019 04:55 B12: 828 Folate: >20.0 Ferritin 12/07/2019 04:55 211 Iron 12/07/2019 04:55 30 CMP 12/07/2019 04:55 Glucose: 243 BUN: 17 Creatinine: 0.86 Sodium: 138 Potassium: 3.9 Total Protein: 6.6 Albumin: 2.4 Alk Phos: 76 AST: 28 ALT: 40 Total Bilirubin: 0.4 CBC 12/07/2019 04:54 WBC: 6.95 Hgb: 11.3 Hct: 36.8 Platelets: 210 Lymphocytes Abs: 0.64 CRP 12/05/2019 07:58 85.3 U/A 12/07/2019 Protein: 30 Glucose: >=500 Blood: Small Leukocyte Esterase: Trace Renal Epithelial: <1 Current Cultures: 12/02/2019 Right Foot Tissue Aerobic Culture: Normal Chalino After 48 Hours. Final. 12/02/2019 Right Foot Tissue AFB Culture: No Acid Fast Bacilli Seen. Preliminary. 12/02/2019 Right Foot Tissue Anaerobic Culture: No Anaerobic Growth at 2 Days. Final. 12/02/2019 Right Foot Tissue Fungus Culture: Fungal Culture in Progress. Preliminary. 12/01/2019 Blood Culture #1: No Growth After 5 Days. Final. 12/01/2019 Blood Culture #2: No Growth After 5 Days. Final. 11/30/2019 Right Foot Wound Aerobic Culture: Normal Chalino After 48 Hours. Final. 11/21/2019 Left Leg Wound Aerobic Culture: Normal Chalino After 48 Hours. Final. 11/20/2019 Right Foot Tissue Aerobic Culture: Moderate Growth Enterobacter cloacae complex, S=Youssef Sensitive. Final. 11/20/2019 Right Foot Tissue Anaerobic Culture: No Anaerobic Growth at 2 Days. Final. 11/20/2019 Right Foot Bone Aerobic Culture: Light Growth Enterobacter Cloacae Complex, S=Youssef Sensitive. Final. 11/20/2019 Right Foot Bone Anaerobic Culture: No Anaerobic Growth at 2 Days. Final. Date: 12/06/2019 New labs/results as of last note Update from previous note Tmax: 99 Urine Output: 1250 Stool: not recorded Current Antibiotics: Rocephin 2 gm IV every 24 Hours until 01/02/2020 Previous Antibiotic: Ancef 2,000 mg IV every 8 Hours Pre/Post Procedure I have personally reviewed the labs and results Test results Laboratory and Additional Data Reviewed: Labs: CBC 12/05/2019 07:58 WBC: 7.98 Hgb: 11.4 Hct: 36.3 Platelets: 228 Lymphocytes Abs: 0.52 CMP 12/05/2019 07:58 Glucose: 223 BUN: 19 Creatinine: 0.86 Sodium: 139 Potassium: 4.1 Total Protein: 6.4 Albumin: 2.4 Alk Phos: 75 AST: 20 ALT: 31 Total Bilirubin: 0.4 CRP 12/05/2019 07:58 85.3 Current Cultures: 12/02/2019 Right Foot Tissue Aerobic Culture: Normal Chalino After 48 Hours. Final. 12/02/2019 Right Foot Tissue AFB Culture: No Acid Fast Bacilli Seen. Preliminary. 12/02/2019 Right Foot Tissue Anaerobic Culture: No Anaerobic Growth at 2 Days. Final. 12/02/2019 Right Foot Tissue Fungus Culture: Fungal Culture in Progress. Preliminary. 12/01/2019 Blood Culture #1: No Growth After 5 Days. Final. 12/01/2019 Blood Culture #2: No Growth After 5 Days. Final. 11/30/2019 Right Foot Wound Aerobic Culture: Normal Chal[place] After 48 Hours. Final. 11/21/2019 Left Leg Wound Aerobic Culture: Normal Chal[place] After 48 Hours. Final. 11/20/2019 Right Foot Tissue Aerobic Culture: Moderate Growth Enterobacter cloacae complex, S=Youssef Sensitive. Final. 11/20/2019 Right Foot Tissue Anaerobic Culture: No Anaerobic Growth at 2 Days. Final. 11/20/2019 Right Foot Bone Aerobic Culture: Light Growth Enterobacter Cloacae Complex, S=Youssef Sensitive. Final. 11/20/2019 Right Foot Bone Anaerobic Culture: No Anaerobic Growth at 2 Days. Final. Pathology: 12/02/2019 A. Soft tissue, Right Foot, excision: Non-specific ulcer. Date: 12/05/2019 New labs/results as of last note Update from previous note Tmax: 98.8 Urine Output: 2900 Stool: not recorded Current Antibiotics: Rocephin 2 gm IV every 24 Hours Previous Antibiotic: Ancef 2,000 mg IV every 8 Hours Pre/Post Procedure I have personally reviewed the labs and results Test results Laboratory and Additional Data Reviewed: Labs: CBC 12/05/2019 07:58 WBC: 7.98 Hgb: 11.4 Hct: 36.3 Platelets: 228 Lymphocytes Abs: 0.52 CMP 12/05/2019 07:58 Glucose: 223 BUN: 19 Creatinine: 0.86 Sodium: 139 Potassium: 4.1 Total Protein: 6.4 Albumin: 2.4 Alk Phos: 75 AST: 20 ALT: 31 Total Bilirubin: 0.4 CRP 12/05/2019 07:58 85.3 Current Cultures: 12/02/2019 Right Foot Tissue Aerobic Culture: Normal Chal[place] After 48 Hours. Final. 12/02/2019 Right Foot Tissue AFB Culture: No Acid Fast Bacilli Seen. Preliminary. 12/02/2019 Right Foot Tissue Anaerobic Culture: No Anaerobic Growth at 2 Days. Final. 12/02/2019 Right Foot Tissue Fungus Culture: Fungal Culture in Progress. Preliminary. 12/01/2019 Blood Culture #1: No Growth After 48 Hours. Preliminary. 12/01/2019 Blood Culture #2: No Growth After 48 Hours. Preliminary. 11/30/2019 Right Foot Wound Aerobic Culture: Normal Chal[place] After 48 Hours. Final. 11/21/2019 Left Leg Wound Aerobic Culture: Normal Chal[place] After 48 Hours. Final. 11/20/2019 Right Foot Tissue Aerobic Culture: Moderate Growth Enterobacter cloacae complex, S=Youssef Sensitive. Final. 11/20/2019 Right Foot Tissue Anaerobic Culture: No Anaerobic Growth at 2 Days. Final. 11/20/2019 Right Foot Bone Aerobic Culture: Light Growth Enterobacter Cloacae Complex, S=Youssef Sensitive. Final. 11/20/2019 Right Foot Bone Anaerobic Culture: No Anaerobic Growth at 2 Days. Final. Current Antibiotics: Rocephin 2 gm IV every 24 Hours Previous Antibiotic: Ancef 2,000 mg IV every 8 Hours Pre/Post Procedure I have personally reviewed the labs and results Test results Laboratory and Additional Data Reviewed: Results from last 7 days Lab Units 12/01/19 0648 11/30/19 1245 11/29/19 0655 SODIUM mmol/L 140 140 142 POTASSIUM mmol/L 5.0 4.9 5.1 CHLORIDE mmol/L 106 105 107 BUN mg/dL 22 24 36* CREATININE mg/dL 0.98 0.94 1.12 GLUCOSE mg/dL 223* 127* 108* CALCIUM mg/dL 9.1 9.3 9.3 Results from last 7 days Lab Units 12/01/19 0635 11/30/19 1245 WBC K/mcL 8.56 8.72 HGB g/dL 11.2* 10.8* HCT % 35.6* 35.4* PLT K/mcL 232 243 Results from last 7 days Lab Units 11/30/19 1245 ALK PHOS U/L 67 BILIRUBIN TOTAL mg/dL 0.3 TOTAL PROTEIN g/dL 6.5 ALTR U/L 56 AST U/L 42 Current Cultures: 12/02/2019 Right Foot Tissue Aerobic Culture: Normal Chalino After 24 Hours. Preliminary. 12/02/2019 Right Foot Tissue AFB Culture: No Acid Fast Bacilli Seen. Preliminary. 12/01/2019 Blood Culture #1: No Growth After 48 Hours. Preliminary. 12/01/2019 Blood Culture #2: No Growth After 48 Hours. Preliminary. 11/30/2019 Right Foot Wound Aerobic Culture: Normal Chalino After 48 Hours. Final. 11/21/2019 Left Leg Wound Aerobic Culture: Normal Chal[place] After 48 Hours. Final. 11/20/2019 Right Foot Tissue Aerobic Culture: Moderate Growth Enterobacter cloacae complex, S=Youssef Sensitive. Final. 11/20/2019 Right Foot Tissue Anaerobic Culture: No Anaerobic Growth at 2 Days. Final. 11/20/2019 Right Foot Bone Aerobic Culture: Light Growth Enterobacter Cloacae Complex, S=Youssef Sensitive. Final. 11/20/2019 Right Foot Bone Anaerobic Culture: No Anaerobic Growth at 2 Days. Final. Recent Cultures: 05/30/2019 Right Foot Tissue Aerobic Culture: Normal Chalino After 48 Hours. Final. 05/30/2019 Right Foot Tissue Anaerobic Culture: No Anaerobic Growth at 2 Days. Final. 03/23/2019 Right Foot Wound Aerobic Culture: Heavy Growth Raoultella [place], R=Ampicillin, S=Remainder of panel. 03/09/2019 Right Foot Wound Aerobic Culture: Normal Chalino After 48 Hours. Final. 02/09/2019 Right Foot Wound Aerobic Culture: Normal Chalino After 48 Hours. Final. 01/19/2019 Right Toe Two Wound Aerobic Culture: Heavy Growth Enterobacter Cloacae Complex, S=Youssef Sensitive. Final. Radiology: Right Foot X-Ray 12/02/2019 Intraoperative fluoroscopy provided. Severe bony deformity of the foot as described. Please correlate with operative note. Chest X-Ray 11/23/2019 1. Right arm PICC line in place with tip in superior vena cava. 2. No acute pulmonary disease. 3. Cardiomegaly with evidence of prior open heart surgery. 4. No acute osseous abnormality Right Foot X-Ray 11/20/2019 IMPRESSION: Intraoperative fluoroscopy for localization during right foot and ankle reconstruction and fixation. Please see operative report for details. Left Ankle X-Ray Ordered 11/20/2019 Right Foot X-Ray 11/20/2019 FINDINGS: Two views of the right foot were obtained. There are advanced changes of Charcot arthropathy throughout the right midfoot which appears similar compared to prior examination. There are postsurgical changes of resection of the right 2nd toe proximal phalangeal head. IMPRESSION: 1. Advanced changes of Charcot arthropathy throughout the right midfoot which appear unchanged compared to prior examination. Chest AP/PA X-Ray 11/16/2019 1. No acute pulmonary disease. 2. Cardiomegaly, with evidence of prior open heart surgery. 3. Multilevel degenerative changes of the thoracic spine. MR Right Foot 05/19/2019 1. There is a superficial soft tissue ulcer again seen along the plantar aspect of the midfoot, butthere is no evidence of abscess or osteomyelitis in this region. 2. Stable appearance of the sequela of severe neuropathic arthropathy of the midfoot with collapse of the midfoot again seen resulting in a rocker bottom deformity. 3. A moderate amount of diffuse subcutaneous edema along the dorsum of the foot may be due to reactive edema or a cellulitis, but this is nonspecific. Right Foot X-Ray 04/28/2019 1. Soft tissue irregularity involving the plantar aspect of the foot likely representing the reported ulcer. No bony destruction to suggest osteomyelitis. 2. No evidence of radiopaque foreign body. 3. Stable deformity and degenerative changes involving the midfoot. Findings are consistent with Charcot joint. NM White Cell Scan Spot Limited 03/08/2017 FINDINGS: A focal area of intense abnormal white blood cell migration is noted central plantar aspect of the right foot corresponding to the area of the wound demonstrated radiographically. No other focus of white blood cell migration abnormality is evident within the right or left foot. IMPRESSION: Focal area of abnormal white blood cell migration at the plantar aspect central right foot may be at the wound itself or may be involving the bone with associated fracture as demonstrated radiographically. Anatomic detail is insufficient for differentiation between the two. Renal U/S 03/07/2017 IMPRESSION: Severe thickening of the urinary bladder wall. This could be due to outlet obstruction with hypertrophy of the wall. If there is no such history, this should be evaluated with cystoscopy. CVPS: Arterial Doppler: not on file Venous Doppler: not on file 2D Echo 11/23/2019 Moderate LV enlargement with LVH. Global systolic dysfunction with segmental features. LVEF 30% Elevated LV filling pressures RV is dilated with severe RV dysfunction Mild mitral annular calcification, mild thickening of the aortic valve without hemodynamically significant valvular disease There is a atrial level right to left shunt identified with saline contrast with free breathing andValsalva most likely via PFO LVEF unchanged from to previous echo from 2017 Surgeries: Please see above for surgical history Procedure: Right Foot I&D ADJUSTMENT EXTERNAL FIXATOR Date: 12/02/2019 Surgery: Alena Mora DPM Procedure: RIGHT FOOT RECONSTRUCTION WITH APPLICATION OF CIRCULAR STATIC EXTERNAL FIXATION Date: 11/20/2019 Surgeon: Alena Mora DPM Procedure: ARTHROPLASTY 2ND TOE RIGHT FOOT Date: 01/25/2019 Surgeon: Rosa M Robles DPM Pathology: not on file * Phoebe Duncan RN - 01/26/2020 7:45 AM EDT Date: 01/26/2020 No new labs/ results as of last note: 01/19/2020 Update from previous note Current Antibiotic: Doxycycline 100 mg PO daily for 6 weeks - Started 01/03/2020 Previous Antibiotic: Doxycycline 100 mg BID for 6 weeks - Start 01/03/2020 Merrem 1,000 mg IV every 12 Hours until January 02, 2020 ([facility]) Rocephin 2 gm IV every 24 Hours Ancef 2,000 mg IV every 8 Hours Pre/Post Procedure Dressings: Right foot - Clean pins and wires with alcohol and paint with betadine. Kb to right great toe an plantar foot. Per Dr. Mora. Current culture: 12/28/2019 - Right foot, aerobic culture: Normal Chalino after 48 hours. Recent Cultures: 12/21/2019 - Right foot, aerobic - normal chalino after 48 hours 12/21/2019 - Right foot, anaerobic: No anaerobic growth at 2 days. 12/10/2019 Right Foot Wound Aerobic Culture: Normal Chalino After 48 Hours. Final 12/10/2019 Right foot wound, anaerobic culture: No anaerobic growth at 2 days. Final 12/08/2019 Urine Aerobic Culture: No Growth (<1,000 CFU/mL). Final. 12/07/2019 Urine Aerobic Culture on arrival to Nursing Rehab Unit: No Growth (<1,000 CFU/mL). Final. 12/02/2019 Right Foot Tissue Aerobic Culture: Normal Chalino After 48 Hours. Final. 12/02/2019 Right Foot Tissue AFB Culture: No Acid Fast Bacilli Seen. Preliminary. 12/02/2019 Right Foot Tissue Anaerobic Culture: No Anaerobic Growth at 2 Days. Final. 12/02/2019 Right Foot Tissue Fungus Culture: No fungus isolated at 4 weeks. Final. 12/01/2019 Blood Culture #1: No Growth After 5 Days. Final. 12/01/2019 Blood Culture #2: No Growth After 5 Days. Final. 11/30/2019 Right Foot Wound Aerobic Culture: Normal Chalino After 48 Hours. Final. 11/21/2019 Left Leg Wound Aerobic Culture: Normal Chalino After 48 Hours. Final. 11/20/2019 Right Foot Tissue Aerobic Culture: Moderate Growth Enterobacter cloacae complex, S=Youssef Sensitive. Final. 11/20/2019 Right Foot Tissue Anaerobic Culture: No Anaerobic Growth at 2 Days. Final. 11/20/2019 Right Foot Bone Aerobic Culture: Light Growth Enterobacter Cloacae Complex, S=Youssef Sensitive. Final. 11/20/2019 Right Foot Bone Anaerobic Culture: No Anaerobic Growth at 2 Days. Final documented in this encounter* Nelda Gilliam RN - 01/26/2020 9:20 AM EDT Surgical mask and gloves were worn while in this patient's room. pIN SITES WERE WIPED WITH ALCOHOL PAD TO CLEAN CRUST OFF AND WIPED AGAIN with betadine solution. 1pin was loose and pulled out per Dr. Mora's order and the site wiped with betadine.LPapst RN * Alena Mora, DPM - 01/26/2020 9:01 AM EDT Associated Order(s): Wound Debridement Post-Procedure Diagnose(s): Dehiscence of operative wound, subsequent encounter; 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); Charcot's joint of right foot Subjective: Patient is a pleasant 59-year-old male who presents to the wound care center for his 6 weeks follow-up evaluation status post right midfoot wedge resection and application of external fixator for Charcot reconstruction (date of surgery 11/20/2019). Patient states that he has been doing well. He was recently discharged home from the rehab facility and continues to receive IV antibiotics via his PICC line, which is managed by Dr. Awad. Patient states that he has been nonweightbearing as instructed to the right lower extremity. He states that the nursing staff has been changing his dressing once every other day as instructed. No new pedal complaints.Denies fevers, chills, nausea, vomiting, [address] pain, shortness of breath, or any other constitutional symptoms. Objective: Vascular: DP and PT pulses are palpable 2/4. Cap refill time is brisk to distal digits. Skin temperature is warm to warm from proximal tibial tuberosity to distal digits. +1 pitting edema noted to the right foot. Neuro: Gross sensation is intact. Protective sensation is absent. Dermatologic: The right foot plantar surgical incision site is well coapted with exception of the central medial aspect where a dehiscence is noted measuring 2.5 x 0.5 x 0.4 cm. Minimal drainage noted. Wound is fibrogranular. It does not probe to bone. No erythema, edema, drainage, or any acute signs of infection.This area was swab cultured today. All pin sites are intact with no surrounding erythema, edema, drainage. The external fixation device is intact. No loosening of pins or wires with exception of the medial dorsal forefoot pin. This pin was removed today without incident. No erythema,edema, drainage or any acute signs of infection. The previously noted blister on the distal tuft ofthe right great toe has a stable eschar measuring 0.3 x 0.3 x 0.2 cm. A partial thickness ulceration noted to right 3rd toe secondary to blister has resolved. No sign of infection. Musculoskeletal: Patient is able to wiggle digits. Compartments are soft and compressible. No calf pain. Assessment: 9.5 weeks status post right midfoot wedge resection and application of external fixator for Charcotreconstruction (Date of surgery 11/20/2019 -Dr. Mora). Charcot arthropathy, midfoot, right foot Diabetes with peripheral neuropathy Hemorrhagic blister, right great toe --> deep tissue injury --> a loose eschar --> subcutaneous ulceration --> stable eschar Dehiscence to central incision site --> down to subcutaneous layer - IMPROVING Retained orthopedic hardware, Loose pin, removed Blister 3rd toe, right foot - resolved Plan: Patient was seen and evaluated. Discussed all clinical findings. Patient is doing well overall. The dehisced site was in need of debridement to removal all nonviable tissue, biofilm, callus. The wound bed was debrided down to and including subcutaneous tissue using a ring curette. No anesthesiasecondary to neuropathy. Hemostasis achieved with compression. See procedure note. Applied kb and dsd to wound site. Regarding the medial dorsal pin, slight loosening was noted. No erythema, edema, drainage, or any acute signs of infection. Consent was obtained prior to removal of superficial pin without incident. No anesthesia secondary to anesthesia. Hemostasis achieved with compression. All pins were cleansed with alcohol and Betadine was applied to all pins at the skin interface. A 6 inch Zechariah bandage was then applied around the external fixator construct. Patient is to keep nonweightbearing to the right lower extremity at all times. He is to keep everything clean and dry. Nurses are to clean wires every other day with alcohol. In addition, Nurses to apply kb to dehisced central incision site plantar right foot and cover with 2 kerlix. All questions were answered to satisfaction. Patient is to return to clinic in 1 week for follow-up evaluation Alena Mora DPM Wound Care Debridement Timeout: Verbal Consent obtained?: Yes Written Consent obtained?: Yes Consent given by: Patient Immediately prior to procedure a time out was called to verify the correct patient, procedure, equipment, support service tech and site/side marked as required Debridement Procedure: Debridement Performed for Assessment: Right foot plantar wound Performed by: Physician Debridement Type: Selective Post Debridement Measurements: Length (cm): 2.5 Width (cm): 0.5 Depth (cm): 0.4 Area (sq cm): 1.25 Volume (cm3): 0.5 Percent Debrided: 100 Total Area Debrided (sq cm): 1.25 Tissue and other material debrided: Subcutaneous Devitalized tissue debrided: Biofilm and Slough Instrument: Curette Bleeding: Minimal Hemostasis Achieved: Pressure Procedural Pain: Insensate Post Procedural Pain: Insensate Response to Treatment: Procedure was tolerated well documented in this encounter* Maria Isabel Awad MD - 12/28/2019 8:00 AM EDT 12/04/2019 Patient Name: Dyllan Huerats Admit Date: MR #: [id number] : 1960 Physicians: Rohit Aguilar MD (Family); No ref. provider found (Referring) Assessment and Plan: Impression Impression Right foot ulcer status post surgical intervention Severe Charcot deformity status post surgical intervention Enterobacter cloaca infection and gram-negative infection see cultures below RaullTela which is a gram-negative Acute osteomyelitis bone culture on 11/20/2019+ for the same pathogen that was present in January 2019is Enterobacter cloaca pansensitive RAJINDER none on chart 11/24/2019 Osteomyelitis as bone culture is positive from 11/20/2019 for Enterobacter cloaca 11/30/2019 New drainage from the pin site Elevated sed rate Elevated CRP Osteomyelitis right foot 12/01/2019 Osteomyelitis right foot Delayed healing of the plantar foot postop wound Cellulitis of the foot 12/04/2019 Status post surgical intervention with incision and drainage by Dr. Mora on 12/02/2019 cultures now with normal chalino AFB and fungus negative 12/05/2019 Sed rate 85 CRP 85 Per rehab physician there is a risk for the left ankle issues especially with diabetic neuropathy in the left foot and he has had right foot surgery 12/06/2019 OR cultures negative elevated CRP could be just postop We will continue IV antibiotics as planned till January 01 Rocephin 2 g every 24 hours 12/11/2019 Right foot wound with some maceration drainage 12/12/2019 CRP improving 12/21/2019 Patient is home now last night he was having difficulty flushing the line PICC line not functioning well because the picc team Plantar foot wound no cellulitis no maceration pin sites look excellent 2019 Right foot wound postop healing remarkably cellulitis improved Patient completing treatment for acute osteomyelitis Enterobacter infection Minimal drainage at the incision site will culture today Plan 12/28/2019 Meropenem 1 g IV twice daily till January 01 which will be 6 weeks of treatment Labs could not be drawn at home because of difficulty for peripheral draw I did not want him to drive from the line because of risk of clotting We will draw them here today After that we will give him doxycycline 100 mg p.o. twice daily for 6 weeks to make 3 months treatment 12/21/2019 IV meropenem 1 g twice daily till January 01 Picc team to evaluate the PICC line consider another midline if needed Revisit 3 weeks for me 12/18/2019 OPAT referral IV meropenem 1 g every 12 till January 01 Home IV antibiotic by [facility] Any dressing orders would be per Dr. Mora CBC CMP sed rate CRP every Wednesday12/14/2019 and 12/15/2019 Continue IV meropenem till January 01 if he can manage to do that Await a picture by podiatry upon dressing change today I have discussed with podiatry Will plan for CBC CMP sed rate CRP next week 12/12/2019 Patient tolerating the meropenem Will await Dr. Mora to check the dressing on the wound at her next rounds Discontinue Rocephin Start meropenem 1 g IV every 12 for the Enterobacter and the other gram-negative that he had seen in the cultures especially with the extensive surgery that was done and he had some drainage on the weekend Continue IV antibiotics till January 01 CBC CMP sed rate CRP Will discuss with Dr. Lopez and Dr. Mora 12/08/2019 Rocephin continued till January 01 Urinary retention to be evaluated by Dr. Lopez Will await for Dr. Mora to do the dressings 12/07/2019 Rocephin 2 g IV 24 hours till January 01 Discontinue Schulte catheter CBC CMP sed rate CRP on Wednesday12/06/2019 Rocephin 2 g to 24 hours till January 01 CBC CMP sed rate CRP periodically Transfer to rehab he has been accepted Will follow the patient in rehab with Dr. Lopez and Dr. Mora 12/05/2019 Rocephin 2 g IV 24 hours continue till January 01 because of the second surgery Elevated sed rate CRP will be followed Await transfer to rehab if approved and bed available 12/04/2019 Rocephin 2 g IV every 24 hours CBC CMP sed rate CRP Rehab referral with Dr. Lopez here if possible We will discuss with podiatry I have discussed with hospitalist OR cultures normal chalino negative AFB and fungus Blood cultures negative so far 12/01/2019 Continue Rocephin till further cultures available CBC CMP sed rate CRP Blood cultures x2 half an hour apart He did bleed well even in the wound clinic yesterday at some point will order arterial Dopplers I have discussed with podiatry at length 11/30/2019 Culture the pin site that is bleeding and draining Follow-up CBC Liver function test Rocephin 2 g IV every 24 hours continue till December 18 May need to go up to additional 2 weeks afterMar which will be January 01 we will decide based on lab results and clinical response If the culture of the pin site shows any additional pathogens may need to readmit for additional IVantibiotics and streamlining treatment Revisit 1 week both I have discussed with podiatry Chief Complaint/Reason for Visit: I am seeing this patient at the request of Dr. Boogie Phan MD. I have reviewed the current hospital record, available laboratory, cardiology and imaging studies as well as available out patient records. History of Present Illness: Admission H&P by Boogie Phan MD on 11/30/2019: Dyllan Huertas is a 59 y.o. male presenting from home with h/o diabetes on disability since 2014 related to a Charcot foot and diabetes developed an ulcer in the beginning of 2018 was being followed by Dr. Robles at the office we have cultures from last year in January with Enterobacter and since then culture with gram-negative bacteria also was seen by Dr. Mora was found to have severe Charcot a corrective surgery was done with placement of an external fixator on 11/20. Today at wound clinic follow up was found to have increased drainage from one of the pin sites, being admitted for continued IV ATB and possible OR/ exploration in am. Exam: Tmax: 99 Urine Output: 2000 Stool: not recorded There were no vitals filed for this visit. Allergies: no known allergies. Current Outpatient Medications: alteplase (CATH AMANDO) 2 mg injection, Instill 2mL into clotted IV line as needed for brake liner. May repeat as needed. Do not use on Peripheral or Midlines ., Disp: 2 mL, Rfl: 52 calcium carbonate 400 mg Chew, Chew and Swallow 1,000 mg daily ., Disp: , Rfl: carvediloL (COREG) 12.5 MG tablet, Take 1 (one) tablet (12.5 mg total) by mouth 2 (two) times a day., Disp: 60 tablet, Rfl: 0 docusate sodium (COLACE) 100 MG capsule, Take 100 mg by mouth daily ., Disp: , Rfl: FENOFIBRATE MICRONIZED ORAL, Take 160 mg by mouth daily ., Disp: , Rfl: finasteride (PROSCAR) 5 mg tablet, Take 2.5 mg by mouth every night at bedtime Wednesday,WED,WED ., Disp: , Rfl: gabapentin (NEURONTIN) 300 MG capsule, gabapentin GABAPENTIN 300 MG CAPS One tablet by mouth daily GABAPENTIN [id number] Sebastián Dailey MD 06-15-2017 [facility] ([id number]), Disp: , Rfl: heparin, porcine, PF, 100 unit/mL Syrg, For Open Ended Midline/PICC/CVC/Port: Flush with 5ml heparin as final flush after each use, weekly if not used. Use 3ml for Peripheral IV ., Disp: 100 Syringe,Rfl: 52 insulin NPH (HumuLIN,NovoLIN) 100 unit/mL injection, Take 30 units with breakfast, and 26 units at bedtime ., Disp: 20 mL, Rfl: 12 insulin regular (HumuLIN R, NovoLIN R) 100 unit/mL injection, Take 12 units three times daily before meals ., Disp: 20 mL, Rfl: 5 levothyroxine (SYNTHROID, LEVOTHROID) 112 MCG tablet, once daily ., Disp: , Rfl: magnesium oxide (MAG-OX) 400 mg (241.3 mg magnesium) tablet, Take 400 mg by mouth daily ., Disp: , Rfl: melatonin 5 mg Tab, Take 10 mg by mouth daily ., Disp: , Rfl: meropenem (MERREM) 1 gram/50 mL, Infuse 50 mL (1,000 mg total) into a venous catheter every 12 (twelve) hours ., Disp: 60 each, Rfl: 0 meropenem 1,000 mg IV (Outpatient Therapy), Infuse 1,000 (one thousand) mg into a venous catheter every 12 (twelve) hours End: 01/02/20, Disp: 28 vial, Rfl: 0 metFORMIN (GLUCOPHAGE-XR) 500 MG 24 hr tablet, 1,000 mg 2 (two) times a day ., Disp: , Rfl: multivitamin (THERAGRAN) per tablet, Take 1 tablet by mouth daily ., Disp: , Rfl: nitroGLYCERIN (NITROSTAT) 0.4 MG SL tablet, Place 1 (one) tablet (0.4 mg total) under the tongue every 5 (five) minutes as needed for chest pain , if no relief after 3 doses call 911 ., Disp: 90 tablet, Rfl: 12 psyllium (METAMUCIL) 3.4 gram packet, Take 1 (one) packet by mouth daily Start: 12/20/19., Disp: 30packet, Rfl: 0 rosuvastatin (CRESTOR) 20 MG tablet, 20 mg daily ., Disp: , Rfl: sodium chloride, PF, (NS) injection, Midline/PICC/CVC/Port: Flush with 10ml pre/post use, weekly ifnot used, 20ml after lab draw/TPN. Use 5ml for Peripheral IV pre/post use ., Disp: 100 mL, Rfl: 52 tamsulosin (FLOMAX) 0.4 mg capsule, tamsulosin TAMSULOSIN HCL 0.4 MG CAPS One tablet by mouth [id number] TAMSULOSIN HCL [id number] Sebastián Dailey MD 06-15-2017 [facility] ([id number]), Disp: , Rfl: PMH/PSH/SH/FH reviewed, no change except: Status post surgical intervention by Dr. Mora on 12/02/2019 12/05/2019 Patient was seen by rehab physician rehab evaluation in progress patient's left ankle is at risk because of right foot surgery and diabetic neuropathy in the left foot also 12/07/2019 patient is now in rehab Review of Systems: All systems were reviewed and negative except: Denies any fever chills no pain in the right leg and foot 12/06/2019 denies any fever chills or diarrhea 12/08/2019 Schulte had to be reinserted for urinary increase residual 12/11/2019 Dressing was changed by Dr. Mora on Wednesday there was some drainage culture was done there was some maceration culture result is normal chalino Dr. Mora's note was reviewed by me Medications Reviewed. Chart Reviewed. BP (!) 142/78 Pulse 78 Temp 98.3 F (36.8 C) Resp 18 SpO2 90% Exam Findings: Constitutional: HENT: Pupils reactive head: No oral candidiasis Eyes: No icterus Neck: Supple Cardiovascular: Heart S1-S2 2 by systolic murmur present no S3 Murmur Pulmonary/Chest: Clear Abdominal: Soft Musculoskeletal: No calf tenderness on the right leg Neurological: Has diabetic neuropathy with Charcot is able to wiggle the toes Skin no redness or cellulitis noted on the plantar foot area Schulte: Patient does have a Schulte catheter followed by urology January 02 Dr. Izquierdo IV: Midline in the right arm site looks other: External fixator in place no drainage noted on the dressing wound to be examined by podiatrytoday Pin sites without any bleeding The plantar foot wound looks excellent no cellulitis noted pin sites with no drainage Zechariah bandage in place with no drainage Wound (Outpatient Only) 03/31/19 Foot Anterior;Right;Plantar (Active) Wound Image 12/28/2019 8:15 AM Wound Length (cm) 11.5 cm 12/21/2019 8:00 AM Wound Width (cm) 0 cm 12/21/2019 8:00 AM Wound Depth (cm) 0 cm 12/21/2019 8:00 AM Wound Surface Area (cm^2) 0 cm^2 12/21/2019 8:00 AM Wound Volume (cm^3) 0 cm^3 12/21/2019 8:00 AM Area % Change 0 12/21/2019 8:00 AM Volume % Change 0 12/21/2019 8:00 AM Tunneling Maximum Distance (cm) 0 cm 12/21/2019 8:00 AM Tunneling Position (o'clock) 0 12/21/2019 8:00 AM Undermining Maximum Distance (cm) 1 0 cm 12/21/2019 8:00 AM Undermining Starting Position (o'clock) 1 0 12/21/2019 8:00 AM Undermining Ending Position (o'clock) 1 0 12/21/2019 8:00 AM Wound Encounter Subsequent 12/21/2019 8:00 AM Wound Progress Improving 12/21/2019 8:00 AM Drainage Amount Scant 12/28/2019 8:15 AM Drainage Description Serosanguineous 12/28/2019 8:15 AM Odor None 12/21/2019 8:00 AM Wound Margin Attached to wound base 12/21/2019 8:00 AM Adherent Yellow Slough % None 12/21/2019 8:00 AM Moist Yellow Slough % None 12/21/2019 8:00 AM Dry Black Eschar % None 12/21/2019 8:00 AM Moist Black Eschar % None 12/21/2019 8:00 AM Epithelialization % 76-100% 12/21/2019 8:00 AM Granulation % None 12/21/2019 8:00 AM Exposed Structure None 12/21/2019 8:00 AM Wound Bed Characteristics Clean;Dry;Intact;Approximated 12/21/2019 8:00 AM Wound Closure Sutures 12/28/2019 8:15 AM Angeli-wound Assessment Temperature WNL;Edema 12/21/2019 8:00 AM Hemostasis Not applicable 12/21/2019 8:00 AM Cleansed Soap and water 12/21/2019 8:00 AM Primary Dressing Betadine 12/21/2019 9:00 AM Secondary Dressing Gauze pad;Gauze roll;Dry gauze dressing 12/21/2019 9:00 AM Compression Dressing Zechariah wrap 12/21/2019 9:00 AM Wound 11/20/19 Surgical Wound Leg Right (Active) Wound 12/02/19 Surgical Wound Lower Leg Right (Active) Wound Image 12/28/2019 8:15 AM Wound 12/14/19 Pressure Injury Great Toe;Toe Anterior;Right (Active) Wound Image 12/28/2019 8:15 AM Wound Length (cm) 1.5 cm 12/21/2019 8:00 AM Wound Width (cm) 1.2 cm 12/21/2019 8:00 AM Wound Depth (cm) 0 cm 12/21/2019 8:00 AM Wound Surface Area (cm^2) 1.8 cm^2 12/21/2019 8:00 AM Wound Volume (cm^3) 0 cm^3 12/21/2019 8:00 AM Area % Change 0 12/21/2019 8:00 AM Tunneling Maximum Distance (cm) 0 cm 12/21/2019 8:00 AM Tunneling Position (o'clock) 0 12/21/2019 8:00 AM Tunneling Maximum Distance (cm) 0 cm 12/21/2019 8:00 AM Tunneling Position (o'clock) 0 12/21/2019 8:00 AM Undermining Maximum Distance (cm) 1 0 cm 12/21/2019 8:00 AM Undermining Starting Position (o'clock) 1 0 12/21/2019 8:00 AM Undermining Ending Position (o'clock) 1 0 12/21/2019 8:00 AM Undermining Maximum Distance (cm) 2 0 cm 12/21/2019 8:00 AM Undermining Starting Position (o'clock) 2 0 12/21/2019 8:00 AM Undermining Ending Position (o'clock) 2 0 12/21/2019 8:00 AM Wound Progress Initial exam 12/21/2019 8:00 AM Drainage Amount None 12/21/2019 8:00 AM Odor None 12/21/2019 8:00 AM Wound Margin Attached to wound base 12/21/2019 8:00 AM Adherent Yellow Slough % None 12/21/2019 8:00 AM Moist Yellow Slough % None 12/21/2019 8:00 AM Dry Black Eschar % None 12/21/2019 8:00 AM Moist Black Eschar % None 12/21/2019 8:00 AM Granulation % None 12/21/2019 8:00 AM Exposed Structure None 12/21/2019 8:00 AM Wound Bed Characteristics Clean;Dry;Intact 12/21/2019 8:00 AM Angeli-wound Assessment Temperature WNL;Intact 12/21/2019 8:00 AM Treatments Not Applicable 12/21/2019 8:00 AM Hemostasis Not applicable 12/21/2019 8:00 AM Cleansed Soap and water 12/21/2019 8:00 AM Compression Dressing Zechariah wrap 12/21/2019 9:00 AM Wound 12/14/19 Pressure Injury Calf Right (Active) Laboratory and Additional Data Reviewed: Date: 12/28/2019 New labs/ results as of last note: 12/21/2019 Labs unable to be drawn by Home Health nurse 12/25/2019 I have personally reviewed all labs and other results Labs: Current Culture: 12/21/2019 - Right foot, aerobic - normal chalino after 48 hours 12/21/2019 - Right foot, anaerobic: No anaerobic growth at 2 days. Update from previous note Current Antibiotics: Merrem 1,000 mg IV every 12 Hours until January 02, 2020 ([facility]) Previous Antibiotic: Rocephin 2 gm IV every 24 Hours Ancef 2,000 mg IV every 8 Hours Pre/Post Procedure Dressings: Per Dr. Mora Recent Cultures: 12/10/2019 Right Foot Wound Aerobic Culture: Normal Chalino After 48 Hours. Final 12/10/2019 Right foot wound, anaerobic culture: No anaerobic growth at 2 days. Final 12/08/2019 Urine Aerobic Culture: No Growth (<1,000 CFU/mL). Final. 12/07/2019 Urine Aerobic Culture on arrival to Nursing Rehab Unit: No Growth (<1,000 CFU/mL). Final. 12/02/2019 Right Foot Tissue Aerobic Culture: Normal Chalino After 48 Hours. Final. 12/02/2019 Right Foot Tissue AFB Culture: No Acid Fast Bacilli Seen. Preliminary. 12/02/2019 Right Foot Tissue Anaerobic Culture: No Anaerobic Growth at 2 Days. Final. 12/02/2019 Right Foot Tissue Fungus Culture: Fungal Culture in Progress. Preliminary. 12/01/2019 Blood Culture #1: No Growth After 5 Days. Final. 12/01/2019 Blood Culture #2: No Growth After 5 Days. Final. 11/30/2019 Right Foot Wound Aerobic Culture: Normal Chalino After 48 Hours. Final. 11/21/2019 Left Leg Wound Aerobic Culture: Normal Chalino After 48 Hours. Final. 11/20/2019 Right Foot Tissue Aerobic Culture: Moderate Growth Enterobacter cloacae complex, S=Youssef Sensitive. Final. 11/20/2019 Right Foot Tissue Anaerobic Culture: No Anaerobic Growth at 2 Days. Final. 11/20/2019 Right Foot Bone Aerobic Culture: Light Growth Enterobacter Cloacae Complex, S=Youssef Sensitive. Final. 11/20/2019 Right Foot Bone Anaerobic Culture: No Anaerobic Growth at 2 Days. Final Date: 12/21/2019 No new labs/ results as of last note: 12/18/2019 Update from previous note Current Antibiotics: Merrem 1,000 mg IV every 12 Hours until January 02, 2020 ([facility]) Previous Antibiotic: Rocephin 2 gm IV every 24 Hours Ancef 2,000 mg IV every 8 Hours Pre/Post Procedure Dressings: Per Dr. Mora Current Cultures: 12/10/2019 Right Foot Wound Aerobic Culture: Normal Chalino After 48 Hours. Final 12/10/2019 Right foot wound, anaerobic culture: No anaerobic growth at 2 days. Final 12/08/2019 Urine Aerobic Culture: No Growth (<1,000 CFU/mL). Final. 12/07/2019 Urine Aerobic Culture on arrival to Nursing Rehab Unit: No Growth (<1,000 CFU/mL). Final. 12/02/2019 Right Foot Tissue Aerobic Culture: Normal Chalino After 48 Hours. Final. 12/02/2019 Right Foot Tissue AFB Culture: No Acid Fast Bacilli Seen. Preliminary. 12/02/2019 Right Foot Tissue Anaerobic Culture: No Anaerobic Growth at 2 Days. Final. 12/02/2019 Right Foot Tissue Fungus Culture: Fungal Culture in Progress. Preliminary. 12/01/2019 Blood Culture #1: No Growth After 5 Days. Final. 12/01/2019 Blood Culture #2: No Growth After 5 Days. Final. 11/30/2019 Right Foot Wound Aerobic Culture: Normal Chalino After 48 Hours. Final. 11/21/2019 Left Leg Wound Aerobic Culture: Normal Chalino After 48 Hours. Final. 11/20/2019 Right Foot Tissue Aerobic Culture: Moderate Growth Enterobacter cloacae complex, S=Youssef Sensitive. Final. 11/20/2019 Right Foot Tissue Anaerobic Culture: No Anaerobic Growth at 2 Days. Final. 11/20/2019 Right Foot Bone Aerobic Culture: Light Growth Enterobacter Cloacae Complex, S=Youssef Sensitive. Final. 11/20/2019 Right Foot Bone Anaerobic Culture: No Anaerobic Growth at 2 Days. Final Date: 12/19/2019 No new labs/results as of last note Update from previous note Tmax: 98.5 Urine Output: 2400 Stool: X1 Current Antibiotics: Merrem 1,000 mg IV every 12 Hours until January 02, 2020 Previous Antibiotic: Rocephin 2 gm IV every 24 Hours Ancef 2,000 mg IV every 8 Hours Pre/Post Procedure Dressings: Per Dr. Mora I have personally reviewed the labs and results Test results Laboratory and Additional Data Reviewed: Labs to de drawn every Wednesday (CBC, CMP, Sed Rate, CRP) Current Cultures: 12/10/2019 Right Foot Wound Aerobic Culture: Normal Chalino After 48 Hours. Final 12/10/2019 Right foot wound, anaerobic culture: No anaerobic growth at 2 days. Final 12/08/2019 Urine Aerobic Culture: No Growth (<1,000 CFU/mL). Final. 12/07/2019 Urine Aerobic Culture on arrival to Nursing Rehab Unit: No Growth (<1,000 CFU/mL). Final. 12/02/2019 Right Foot Tissue Aerobic Culture: Normal Chalino After 48 Hours. Final. 12/02/2019 Right Foot Tissue AFB Culture: No Acid Fast Bacilli Seen. Preliminary. 12/02/2019 Right Foot Tissue Anaerobic Culture: No Anaerobic Growth at 2 Days. Final. 12/02/2019 Right Foot Tissue Fungus Culture: Fungal Culture in Progress. Preliminary. 12/01/2019 Blood Culture #1: No Growth After 5 Days. Final. 12/01/2019 Blood Culture #2: No Growth After 5 Days. Final. 11/30/2019 Right Foot Wound Aerobic Culture: Normal Chalino After 48 Hours. Final. 11/21/2019 Left Leg Wound Aerobic Culture: Normal Chalino After 48 Hours. Final. 11/20/2019 Right Foot Tissue Aerobic Culture: Moderate Growth Enterobacter cloacae complex, S=Youssef Sensitive. Final. 11/20/2019 Right Foot Tissue Anaerobic Culture: No Anaerobic Growth at 2 Days. Final. 11/20/2019 Right Foot Bone Aerobic Culture: Light Growth Enterobacter Cloacae Complex, S=Youssef Sensitive. Final. 11/20/2019 Right Foot Bone Anaerobic Culture: No Anaerobic Growth at 2 Days. Final Date: 12/18/2019 No new labs/results as of last note Update from previous note Tmax: 98.1 Urine Output: 3950 Stool: not recorded Current Antibiotics: Merrem 1,000 mg IV every 12 Hours Previous Antibiotic: Rocephin 2 gm IV every 24 Hours Ancef 2,000 mg IV every 8 Hours Pre/Post Procedure I have personally reviewed the labs and results Test results Laboratory and Additional Data Reviewed: Current Cultures: 12/10/2019 Right Foot Wound Aerobic Culture: Normal Chalino After 48 Hours. Final 12/10/2019 Right foot wound, anaerobic culture: No anaerobic growth at 2 days. Final 12/08/2019 Urine Aerobic Culture: No Growth (<1,000 CFU/mL). Final. 12/07/2019 Urine Aerobic Culture on arrival to Nursing Rehab Unit: No Growth (<1,000 CFU/mL). Final. 12/02/2019 Right Foot Tissue Aerobic Culture: Normal Chalino After 48 Hours. Final. 12/02/2019 Right Foot Tissue AFB Culture: No Acid Fast Bacilli Seen. Preliminary. 12/02/2019 Right Foot Tissue Anaerobic Culture: No Anaerobic Growth at 2 Days. Final. 12/02/2019 Right Foot Tissue Fungus Culture: Fungal Culture in Progress. Preliminary. 12/01/2019 Blood Culture #1: No Growth After 5 Days. Final. 12/01/2019 Blood Culture #2: No Growth After 5 Days. Final. 11/30/2019 Right Foot Wound Aerobic Culture: Normal Chalino After 48 Hours. Final. 11/21/2019 Left Leg Wound Aerobic Culture: Normal Chalino After 48 Hours. Final. 11/20/2019 Right Foot Tissue Aerobic Culture: Moderate Growth Enterobacter cloacae complex, S=Youssef Sensitive. Final. 11/20/2019 Right Foot Tissue Anaerobic Culture: No Anaerobic Growth at 2 Days. Final. 11/20/2019 Right Foot Bone Aerobic Culture: Light Growth Enterobacter Cloacae Complex, S=Youssef Sensitive. Final. 11/20/2019 Right Foot Bone Anaerobic Culture: No Anaerobic Growth at 2 Days. Final Date: 12/15/2019 New labs/results as of last note Update from previous note Tmax: 98.7 Urine Output: 1900 Stool: not recorded Current Antibiotics: Merrem 1,000 mg IV every 12 Hours Previous Antibiotic: Rocephin 2 gm IV every 24 Hours Ancef 2,000 mg IV every 8 Hours Pre/Post Procedure I have personally reviewed the labs and results Test results Laboratory and Additional Data Reviewed: Current Cultures: 12/10/2019 Right Foot Wound Aerobic Culture: Normal Chalino After 48 Hours. Final 12/10/2019 Right foot wound, anaerobic culture: No anaerobic growth at 2 days. Final 12/08/2019 Urine Aerobic Culture: No Growth (<1,000 CFU/mL). Final. 12/07/2019 Urine Aerobic Culture on arrival to Nursing Rehab Unit: No Growth (<1,000 CFU/mL). Final. 12/02/2019 Right Foot Tissue Aerobic Culture: Normal Chalino After 48 Hours. Final. 12/02/2019 Right Foot Tissue AFB Culture: No Acid Fast Bacilli Seen. Preliminary. 12/02/2019 Right Foot Tissue Anaerobic Culture: No Anaerobic Growth at 2 Days. Final. 12/02/2019 Right Foot Tissue Fungus Culture: Fungal Culture in Progress. Preliminary. 12/01/2019 Blood Culture #1: No Growth After 5 Days. Final. 12/01/2019 Blood Culture #2: No Growth After 5 Days. Final. 11/30/2019 Right Foot Wound Aerobic Culture: Normal Chalino After 48 Hours. Final. 11/21/2019 Left Leg Wound Aerobic Culture: Normal Chalino After 48 Hours. Final. 11/20/2019 Right Foot Tissue Aerobic Culture: Moderate Growth Enterobacter cloacae complex, S=Youssef Sensitive. Final. 11/20/2019 Right Foot Tissue Anaerobic Culture: No Anaerobic Growth at 2 Days. Final. 11/20/2019 Right Foot Bone Aerobic Culture: Light Growth Enterobacter Cloacae Complex, S=Youssef Sensitive. Final. 11/20/2019 Right Foot Bone Anaerobic Culture: No Anaerobic Growth at 2 Days. Final Date: 12/14/2019 New labs/ results as of last note: 12/12/2019 T-Max: 98.6 Output: Urine 2150 ml Stool not recorded Current Antibiotics: Merrem 1,000 mg IV every 12 Hours Previous Antibiotic: Rocephin 2 gm IV every 24 Hours Ancef 2,000 mg IV every 8 Hours Pre/Post Procedure I have personally reviewed the labs and results Test results Laboratory and Additional Data Reviewed: Current Cultures: 12/10/2019 Right Foot Wound Aerobic Culture: Normal Chalino After 48 Hours. Final 12/10/2019 Right foot wound, anaerobic culture: No anaerobic growth at 2 days. Final 12/08/2019 Urine Aerobic Culture: No Growth (<1,000 CFU/mL). Final. 12/07/2019 Urine Aerobic Culture on arrival to Nursing Rehab Unit: No Growth (<1,000 CFU/mL). Final. 12/02/2019 Right Foot Tissue Aerobic Culture: Normal Chalino After 48 Hours. Final. 12/02/2019 Right Foot Tissue AFB Culture: No Acid Fast Bacilli Seen. Preliminary. 12/02/2019 Right Foot Tissue Anaerobic Culture: No Anaerobic Growth at 2 Days. Final. 12/02/2019 Right Foot Tissue Fungus Culture: Fungal Culture in Progress. Preliminary. 12/01/2019 Blood Culture #1: No Growth After 5 Days. Final. 12/01/2019 Blood Culture #2: No Growth After 5 Days. Final. 11/30/2019 Right Foot Wound Aerobic Culture: Normal [place] After 48 Hours. Final. 11/21/2019 Left Leg Wound Aerobic Culture: Normal Chalino After 48 Hours. Final. 11/20/2019 Right Foot Tissue Aerobic Culture: Moderate Growth Enterobacter cloacae complex, S=Youssef Sensitive. Final. 11/20/2019 Right Foot Tissue Anaerobic Culture: No Anaerobic Growth at 2 Days. Final. 11/20/2019 Right Foot Bone Aerobic Culture: Light Growth Enterobacter Cloacae Complex, S=Youssef Sensitive. Final. 11/20/2019 Right Foot Bone Anaerobic Culture: No Anaerobic Growth at 2 Days. Final Update from previous note Date: 12/12/2019 New labs/results as of last note Update from previous note Tmax: 99.2 Urine Output: 1600 Stool: not recorded Current Antibiotics: Merrem 1,000 mg IV every 12 Hours Previous Antibiotic: Rocephin 2 gm IV every 24 Hours Ancef 2,000 mg IV every 8 Hours Pre/Post Procedure I have personally reviewed the labs and results Test results Laboratory and Additional Data Reviewed: Labs: CMP 12/12/2019 06:11 Glucose: 167 BUN: 26 Creatinine: 0.89 Sodium: 140 Potassium: 4.3 Total Protein: 6.7 Albumin: 2.5 Alk Phos: 83 AST: 35 ALT: 52 Total Bilirubin: 0.3 CBC 12/12/2019 06:11 WBC: 4.12 RBC: 4.13 Hgb: 10.8 Hct: 35.6 Platelets: 203 Lymphocytes Abs: 0.66 CRP 12/12/2019 06:11 52.4 Current Cultures: 12/10/2019 Right Foot Wound Aerobic Culture: Normal Chalino After 24 Hours. Preliminary. 12/08/2019 Urine Aerobic Culture: No Growth (<1,000 CFU/mL). Final. 12/07/2019 Urine Aerobic Culture on arrival to Nursing Rehab Unit: No Growth (<1,000 CFU/mL). Final. 12/02/2019 Right Foot Tissue Aerobic Culture: Normal Chalino After 48 Hours. Final. 12/02/2019 Right Foot Tissue AFB Culture: No Acid Fast Bacilli Seen. Preliminary. 12/02/2019 Right Foot Tissue Anaerobic Culture: No Anaerobic Growth at 2 Days. Final. 12/02/2019 Right Foot Tissue Fungus Culture: Fungal Culture in Progress. Preliminary. 12/01/2019 Blood Culture #1: No Growth After 5 Days. Final. 12/01/2019 Blood Culture #2: No Growth After 5 Days. Final. 11/30/2019 Right Foot Wound Aerobic Culture: Normal Chalino After 48 Hours. Final. 11/21/2019 Left Leg Wound Aerobic Culture: Normal Chal[place] After 48 Hours. Final. 11/20/2019 Right Foot Tissue Aerobic Culture: Moderate Growth Enterobacter cloacae complex, S=Youssef Sensitive. Final. 11/20/2019 Right Foot Tissue Anaerobic Culture: No Anaerobic Growth at 2 Days. Final. 11/20/2019 Right Foot Bone Aerobic Culture: Light Growth Enterobacter Cloacae Complex, S=Youssef Sensitive. Final. 11/20/2019 Right Foot Bone Anaerobic Culture: No Anaerobic Growth at 2 Days. Final. Date: 12/11/2019 New labs/results as of last note Update from previous note Tmax: 98.7 Urine Output: 2500 Stool: X1 Current Antibiotics: Rocephin 2 gm IV every 24 Hours until 01/02/2020 Previous Antibiotic: Ancef 2,000 mg IV every 8 Hours Pre/Post Procedure I have personally reviewed the labs and results Test results Laboratory and Additional Data Reviewed: U/A 12/08/2019 Glucose: 150 Blood: Small WBC: 7 Bacteria: Rare Labs: Vitamin D, Total 12/07/2019 04:55 16 B12/Folate 12/07/2019 04:55 B12: 828 Folate: >20.0 Ferritin 12/07/2019 04:55 211 Iron 12/07/2019 04:55 30 CMP 12/07/2019 04:55 Glucose: 243 BUN: 17 Creatinine: 0.86 Sodium: 138 Potassium: 3.9 Total Protein: 6.6 Albumin: 2.4 Alk Phos: 76 AST: 28 ALT: 40 Total Bilirubin: 0.4 CBC 12/07/2019 04:54 WBC: 6.95 Hgb: 11.3 Hct: 36.8 Platelets: 210 Lymphocytes Abs: 0.64 CRP 12/05/2019 07:58 85.3 U/A 12/07/2019 Protein: 30 Glucose: >=500 Blood: Small Leukocyte Esterase: Trace Renal Epithelial: <1 Current Cultures: 12/10/2019 Right Foot Wound Aerobic Culture: Rare WBC. Rare Epithelial Cells. No Organisms Seen. Preliminary. 12/08/2019 Urine Aerobic Culture: No Growth (<1,000 CFU/mL). Final. 12/07/2019 Urine Aerobic Culture on arrival to Nursing Rehab Unit: No Growth (<1,000 CFU/mL). Final. 12/02/2019 Right Foot Tissue Aerobic Culture: Normal Chal[place] After 48 Hours. Final. 12/02/2019 Right Foot Tissue AFB Culture: No Acid Fast Bacilli Seen. Preliminary. 12/02/2019 Right Foot Tissue Anaerobic Culture: No Anaerobic Growth at 2 Days. Final. 12/02/2019 Right Foot Tissue Fungus Culture: Fungal Culture in Progress. Preliminary. 12/01/2019 Blood Culture #1: No Growth After 5 Days. Final. 12/01/2019 Blood Culture #2: No Growth After 5 Days. Final. 11/30/2019 Right Foot Wound Aerobic Culture: Normal [place] After 48 Hours. Final. 11/21/2019 Left Leg Wound Aerobic Culture: Normal [place] After 48 Hours. Final. 11/20/2019 Right Foot Tissue Aerobic Culture: Moderate Growth Enterobacter cloacae complex, S=Youssef Sensitive. Final. 11/20/2019 Right Foot Tissue Anaerobic Culture: No Anaerobic Growth at 2 Days. Final. 11/20/2019 Right Foot Bone Aerobic Culture: Light Growth Enterobacter Cloacae Complex, S=Youssef Sensitive. Final. 11/20/2019 Right Foot Bone Anaerobic Culture: No Anaerobic Growth at 2 Days. Final. Date: 12/08/2019 New labs/results as of last note Update from previous note Tmax: 99.2 Urine Output: 4950 Stool: not recorded Current Antibiotics: Rocephin 2 gm IV every 24 Hours until 01/02/2020 Previous Antibiotic: Ancef 2,000 mg IV every 8 Hours Pre/Post Procedure I have personally reviewed the labs and results Test results Laboratory and Additional Data Reviewed: U/A 12/08/2019 Glucose: 150 Blood: Small WBC: 7 Bacteria: Rare Labs: Vitamin D, Total 12/07/2019 04:55 16 B12/Folate 12/07/2019 04:55 B12: 828 Folate: >20.0 Ferritin 12/07/2019 04:55 211 Iron 12/07/2019 04:55 30 CMP 12/07/2019 04:55 Glucose: 243 BUN: 17 Creatinine: 0.86 Sodium: 138 Potassium: 3.9 Total Protein: 6.6 Albumin: 2.4 Alk Phos: 76 AST: 28 ALT: 40 Total Bilirubin: 0.4 CBC 12/07/2019 04:54 WBC: 6.95 Hgb: 11.3 Hct: 36.8 Platelets: 210 Lymphocytes Abs: 0.64 CRP 12/05/2019 07:58 85.3 U/A 12/07/2019 Protein: 30 Glucose: >=500 Blood: Small Leukocyte Esterase: Trace Renal Epithelial: <1 Current Cultures: 12/07/2019 Urine Aerobic Culture on arrival to Nursing Rehab Unit: No Growth, Incubation Continued.Preliminary. 12/02/2019 Right Foot Tissue Aerobic Culture: Normal Chal[place] After 48 Hours. Final. 12/02/2019 Right Foot Tissue AFB Culture: No Acid Fast Bacilli Seen. Preliminary. 12/02/2019 Right Foot Tissue Anaerobic Culture: No Anaerobic Growth at 2 Days. Final. 12/02/2019 Right Foot Tissue Fungus Culture: Fungal Culture in Progress. Preliminary. 12/01/2019 Blood Culture #1: No Growth After 5 Days. Final. 12/01/2019 Blood Culture #2: No Growth After 5 Days. Final. 11/30/2019 Right Foot Wound Aerobic Culture: Normal [place] After 48 Hours. Final. 11/21/2019 Left Leg Wound Aerobic Culture: Normal [place] After 48 Hours. Final. 11/20/2019 Right Foot Tissue Aerobic Culture: Moderate Growth Enterobacter cloacae complex, S=Youssef Sensitive. Final. 11/20/2019 Right Foot Tissue Anaerobic Culture: No Anaerobic Growth at 2 Days. Final. 11/20/2019 Right Foot Bone Aerobic Culture: Light Growth Enterobacter Cloacae Complex, S=Youssef Sensitive. Final. 11/20/2019 Right Foot Bone Anaerobic Culture: No Anaerobic Growth at 2 Days. Final. Radiology: Left Ankle X-Ray 12/07/2019 1. A new screw internally fixes the base of the 5th metatarsal to near anatomic alignment, however this screw is broken/fractured. 2. 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 Lateral subluxation of the 2nd through 5th metatarsal bases is again noted, as well as pes planus deformity. 3. Milder arthritis is noted in the tibiotalar joint and subtalar joint. 4. Large calcaneal enthesophytes are noted at the insertion sites of the plantar fascia and Achilles tendon. 5. No acute fracture, or other acute bony abnormality is seen. Date: 12/07/2019 New labs/results as of last note Update from previous note Tmax: 99.1 Urine Output: 1800 Stool: not recorded Current Antibiotics: Rocephin 2 gm IV every 24 Hours until 01/02/2020 Previous Antibiotic: Ancef 2,000 mg IV every 8 Hours Pre/Post Procedure I have personally reviewed the labs and results Test results Laboratory and Additional Data Reviewed: Labs: Vitamin D, Total 12/07/2019 04:55 16 B12/Folate 12/07/2019 04:55 B12: 828 Folate: >20.0 Ferritin 12/07/2019 04:55 211 Iron 12/07/2019 04:55 30 CMP 12/07/2019 04:55 Glucose: 243 BUN: 17 Creatinine: 0.86 Sodium: 138 Potassium: 3.9 Total Protein: 6.6 Albumin: 2.4 Alk Phos: 76 AST: 28 ALT: 40 Total Bilirubin: 0.4 CBC 12/07/2019 04:54 WBC: 6.95 Hgb: 11.3 Hct: 36.8 Platelets: 210 Lymphocytes Abs: 0.64 CRP 12/05/2019 07:58 85.3 U/A 12/07/2019 Protein: 30 Glucose: >=500 Blood: Small Leukocyte Esterase: Trace Renal Epithelial: <1 Current Cultures: 12/02/2019 Right Foot Tissue Aerobic Culture: Normal [place] After 48 Hours. Final. 12/02/2019 Right Foot Tissue AFB Culture: No Acid Fast Bacilli Seen. Preliminary. 12/02/2019 Right Foot Tissue Anaerobic Culture: No Anaerobic Growth at 2 Days. Final. 12/02/2019 Right Foot Tissue Fungus Culture: Fungal Culture in Progress. Preliminary. 12/01/2019 Blood Culture #1: No Growth After 5 Days. Final. 12/01/2019 Blood Culture #2: No Growth After 5 Days. Final. 11/30/2019 Right Foot Wound Aerobic Culture: Normal [place] After 48 Hours. Final. 11/21/2019 Left Leg Wound Aerobic Culture: Normal [place] After 48 Hours. Final. 11/20/2019 Right Foot Tissue Aerobic Culture: Moderate Growth Enterobacter cloacae complex, S=Youssef Sensitive. Final. 11/20/2019 Right Foot Tissue Anaerobic Culture: No Anaerobic Growth at 2 Days. Final. 11/20/2019 Right Foot Bone Aerobic Culture: Light Growth Enterobacter Cloacae Complex, S=Youssef Sensitive. Final. 11/20/2019 Right Foot Bone Anaerobic Culture: No Anaerobic Growth at 2 Days. Final. Date: 12/06/2019 New labs/results as of last note Update from previous note Tmax: 99 Urine Output: 1250 Stool: not recorded Current Antibiotics: Rocephin 2 gm IV every 24 Hours until 01/02/2020 Previous Antibiotic: Ancef 2,000 mg IV every 8 Hours Pre/Post Procedure I have personally reviewed the labs and results Test results Laboratory and Additional Data Reviewed: Labs: CBC 12/05/2019 07:58 WBC: 7.98 Hgb: 11.4 Hct: 36.3 Platelets: 228 Lymphocytes Abs: 0.52 CMP 12/05/2019 07:58 Glucose: 223 BUN: 19 Creatinine: 0.86 Sodium: 139 Potassium: 4.1 Total Protein: 6.4 Albumin: 2.4 Alk Phos: 75 AST: 20 ALT: 31 Total Bilirubin: 0.4 CRP 12/05/2019 07:58 85.3 Current Cultures: 12/02/2019 Right Foot Tissue Aerobic Culture: Normal [place] After 48 Hours. Final. 12/02/2019 Right Foot Tissue AFB Culture: No Acid Fast Bacilli Seen. Preliminary. 12/02/2019 Right Foot Tissue Anaerobic Culture: No Anaerobic Growth at 2 Days. Final. 12/02/2019 Right Foot Tissue Fungus Culture: Fungal Culture in Progress. Preliminary. 12/01/2019 Blood Culture #1: No Growth After 5 Days. Final. 12/01/2019 Blood Culture #2: No Growth After 5 Days. Final. 11/30/2019 Right Foot Wound Aerobic Culture: Normal [place] After 48 Hours. Final. 11/21/2019 Left Leg Wound Aerobic Culture: Normal [place] After 48 Hours. Final. 11/20/2019 Right Foot Tissue Aerobic Culture: Moderate Growth Enterobacter cloacae complex, S=Youssef Sensitive. Final. 11/20/2019 Right Foot Tissue Anaerobic Culture: No Anaerobic Growth at 2 Days. Final. 11/20/2019 Right Foot Bone Aerobic Culture: Light Growth Enterobacter Cloacae Complex, S=Youssef Sensitive. Final. 11/20/2019 Right Foot Bone Anaerobic Culture: No Anaerobic Growth at 2 Days. Final. Pathology: 12/02/2019 A. Soft tissue, Right Foot, excision: Non-specific ulcer. Date: 12/05/2019 New labs/results as of last note Update from previous note Tmax: 98.8 Urine Output: 2900 Stool: not recorded Current Antibiotics: Rocephin 2 gm IV every 24 Hours Previous Antibiotic: Ancef 2,000 mg IV every 8 Hours Pre/Post Procedure I have personally reviewed the labs and results Test results Laboratory and Additional Data Reviewed: Labs: CBC 12/05/2019 07:58 WBC: 7.98 Hgb: 11.4 Hct: 36.3 Platelets: 228 Lymphocytes Abs: 0.52 CMP 12/05/2019 07:58 Glucose: 223 BUN: 19 Creatinine: 0.86 Sodium: 139 Potassium: 4.1 Total Protein: 6.4 Albumin: 2.4 Alk Phos: 75 AST: 20 ALT: 31 Total Bilirubin: 0.4 CRP 12/05/2019 07:58 85.3 Current Cultures: 12/02/2019 Right Foot Tissue Aerobic Culture: Normal [place] After 48 Hours. Final. 12/02/2019 Right Foot Tissue AFB Culture: No Acid Fast Bacilli Seen. Preliminary. 12/02/2019 Right Foot Tissue Anaerobic Culture: No Anaerobic Growth at 2 Days. Final. 12/02/2019 Right Foot Tissue Fungus Culture: Fungal Culture in Progress. Preliminary. 12/01/2019 Blood Culture #1: No Growth After 48 Hours. Preliminary. 12/01/2019 Blood Culture #2: No Growth After 48 Hours. Preliminary. 11/30/2019 Right Foot Wound Aerobic Culture: Normal [place] After 48 Hours. Final. 11/21/2019 Left Leg Wound Aerobic Culture: Normal [place] After 48 Hours. Final. 11/20/2019 Right Foot Tissue Aerobic Culture: Moderate Growth Enterobacter cloacae complex, S=Youssef Sensitive. Final. 11/20/2019 Right Foot Tissue Anaerobic Culture: No Anaerobic Growth at 2 Days. Final. 11/20/2019 Right Foot Bone Aerobic Culture: Light Growth Enterobacter Cloacae Complex, S=Youssef Sensitive. Final. 11/20/2019 Right Foot Bone Anaerobic Culture: No Anaerobic Growth at 2 Days. Final. Current Antibiotics: Rocephin 2 gm IV every 24 Hours Previous Antibiotic: Ancef 2,000 mg IV every 8 Hours Pre/Post Procedure I have personally reviewed the labs and results Test results Laboratory and Additional Data Reviewed: Results from last 7 days Lab Units 12/01/19 0648 11/30/19 1245 11/29/19 0655 SODIUM mmol/L 140 140 142 POTASSIUM mmol/L 5.0 4.9 5.1 CHLORIDE mmol/L 106 105 107 BUN mg/dL 22 24 36* CREATININE mg/dL 0.98 0.94 1.12 GLUCOSE mg/dL 223* 127* 108* CALCIUM mg/dL 9.1 9.3 9.3 Results from last 7 days Lab Units 12/01/19 0635 11/30/19 1245 WBC K/mcL 8.56 8.72 HGB g/dL 11.2* 10.8* HCT % 35.6* 35.4* PLT K/mcL 232 243 Results from last 7 days Lab Units 11/30/19 1245 ALK PHOS U/L 67 BILIRUBIN TOTAL mg/dL 0.3 TOTAL PROTEIN g/dL 6.5 ALTR U/L 56 AST U/L 42 Current Cultures: 12/02/2019 Right Foot Tissue Aerobic Culture: Normal [place] After 24 Hours. Preliminary. 12/02/2019 Right Foot Tissue AFB Culture: No Acid Fast Bacilli Seen. Preliminary. 12/01/2019 Blood Culture #1: No Growth After 48 Hours. Preliminary. 12/01/2019 Blood Culture #2: No Growth After 48 Hours. Preliminary. 11/30/2019 Right Foot Wound Aerobic Culture: Normal [place] After 48 Hours. Final. 11/21/2019 Left Leg Wound Aerobic Culture: Normal [place] After 48 Hours. Final. 11/20/2019 Right Foot Tissue Aerobic Culture: Moderate Growth Enterobacter cloacae complex, S=Youssef Sensitive. Final. 11/20/2019 Right Foot Tissue Anaerobic Culture: No Anaerobic Growth at 2 Days. Final. 11/20/2019 Right Foot Bone Aerobic Culture: Light Growth Enterobacter Cloacae Complex, S=Youssef Sensitive. Final. 11/20/2019 Right Foot Bone Anaerobic Culture: No Anaerobic Growth at 2 Days. Final. Recent Cultures: 05/30/2019 Right Foot Tissue Aerobic Culture: Normal [place] After 48 Hours. Final. 05/30/2019 Right Foot Tissue Anaerobic Culture: No Anaerobic Growth at 2 Days. Final. 03/23/2019 Right Foot Wound Aerobic Culture: Heavy Growth Raoultella [place], R=Ampicillin, S=Remainder of panel. 03/09/2019 Right Foot Wound Aerobic Culture: Normal [place] After 48 Hours. Final. 02/09/2019 Right Foot Wound Aerobic Culture: Normal [place] After 48 Hours. Final. 01/19/2019 Right Toe Two Wound Aerobic Culture: Heavy Growth Enterobacter Cloacae Complex, S=Youssef Sensitive. Final. Radiology: Right Foot X-Ray 12/02/2019 Intraoperative fluoroscopy provided. Severe bony deformity of the foot as described. Please correlate with operative note. Chest X-Ray 11/23/2019 1. Right arm PICC line in place with tip in superior vena cava. 2. No acute pulmonary disease. 3. Cardiomegaly with evidence of prior open heart surgery. 4. No acute osseous abnormality Right Foot X-Ray 11/20/2019 IMPRESSION: Intraoperative fluoroscopy for localization during right foot and ankle reconstruction and fixation. Please see operative report for details. Left Ankle X-Ray Ordered 11/20/2019 Right Foot X-Ray 11/20/2019 FINDINGS: Two views of the right foot were obtained. There are advanced changes of Charcot arthropathy throughout the right midfoot which appears similar compared to prior examination. There are postsurgical changes of resection of the right 2nd toe proximal phalangeal head. IMPRESSION: 1. Advanced changes of Charcot arthropathy throughout the right midfoot which appear unchanged compared to prior examination. Chest AP/PA X-Ray 11/16/2019 1. No acute pulmonary disease. 2. Cardiomegaly, with evidence of prior open heart surgery. 3. Multilevel degenerative changes of the thoracic spine. MR Right Foot 05/19/2019 1. There is a superficial soft tissue ulcer again seen along the plantar aspect of the midfoot, butthere is no evidence of abscess or osteomyelitis in this region. 2. Stable appearance of the sequela of severe neuropathic arthropathy of the midfoot with collapse of the midfoot again seen resulting in a rocker bottom deformity. 3. A moderate amount of diffuse subcutaneous edema along the dorsum of the foot may be due to reactive edema or a cellulitis, but this is nonspecific. Right Foot X-Ray 04/28/2019 1. Soft tissue irregularity involving the plantar aspect of the foot likely representing the reported ulcer. No bony destruction to suggest osteomyelitis. 2. No evidence of radiopaque foreign body. 3. Stable deformity and degenerative changes involving the midfoot. Findings are consistent with Charcot joint. NM White Cell Scan Spot Limited 03/08/2017 FINDINGS: A focal area of intense abnormal white blood cell migration is noted central plantar aspect of the right foot corresponding to the area of the wound demonstrated radiographically. No other focus of white blood cell migration abnormality is evident within the right or left foot. IMPRESSION: Focal area of abnormal white blood cell migration at the plantar aspect central right foot may be at the wound itself or may be involving the bone with associated fracture as demonstrated radiographically. Anatomic detail is insufficient for differentiation between the two. Renal U/S 03/07/2017 IMPRESSION: Severe thickening of the urinary bladder wall. This could be due to outlet obstruction with hypertrophy of the wall. If there is no such history, this should be evaluated with cystoscopy. CVPS: Arterial Doppler: not on file Venous Doppler: not on file 2D Echo 11/23/2019 Moderate LV enlargement with LVH. Global systolic dysfunction with segmental features. LVEF 30% Elevated LV filling pressures RV is dilated with severe RV dysfunction Mild mitral annular calcification, mild thickening of the aortic valve without hemodynamically significant valvular disease There is a atrial level right to left shunt identified with saline contrast with free breathing andValsalva most likely via PFO LVEF unchanged from to previous echo from 2017 Surgeries: Please see above for surgical history Procedure: Right Foot I&D ADJUSTMENT EXTERNAL FIXATOR Date: 12/02/2019 Surgery: Alena Mora DPM Procedure: RIGHT FOOT RECONSTRUCTION WITH APPLICATION OF CIRCULAR STATIC EXTERNAL FIXATION Date: 11/20/2019 Surgeon: Alena Mora DPM Procedure: ARTHROPLASTY 2ND TOE RIGHT FOOT Date: 01/25/2019 Surgeon: Rosa M Robles DPM Pathology: not on file * Phoebe Duncan RN - 12/28/2019 8:00 AM EDT Date: 12/28/2019 New labs/ results as of last note: 12/21/2019 Labs unable to be drawn by Home Health nurse 12/25/2019 I have personally reviewed all labs and other results Labs: Current Culture: 12/21/2019 - Right foot, aerobic - normal chalino after 48 hours 12/21/2019 - Right foot, anaerobic: No anaerobic growth at 2 days. Update from previous note Current Antibiotics: Merrem 1,000 mg IV every 12 Hours until January 02, 2020 ([facility]) Previous Antibiotic: Rocephin 2 gm IV every 24 Hours Ancef 2,000 mg IV every 8 Hours Pre/Post Procedure Dressings: Per Dr. Mora Recent Cultures: 12/10/2019 Right Foot Wound Aerobic Culture: Normal Chalino After 48 Hours. Final 12/10/2019 Right foot wound, anaerobic culture: No anaerobic growth at 2 days. Final 12/08/2019 Urine Aerobic Culture: No Growth (<1,000 CFU/mL). Final. 12/07/2019 Urine Aerobic Culture on arrival to Nursing Rehab Unit: No Growth (<1,000 CFU/mL). Final. 12/02/2019 Right Foot Tissue Aerobic Culture: Normal Chalino After 48 Hours. Final. 12/02/2019 Right Foot Tissue AFB Culture: No Acid Fast Bacilli Seen. Preliminary. 12/02/2019 Right Foot Tissue Anaerobic Culture: No Anaerobic Growth at 2 Days. Final. 12/02/2019 Right Foot Tissue Fungus Culture: Fungal Culture in Progress. Preliminary. 12/01/2019 Blood Culture #1: No Growth After 5 Days. Final. 12/01/2019 Blood Culture #2: No Growth After 5 Days. Final. 11/30/2019 Right Foot Wound Aerobic Culture: Normal Chalino After 48 Hours. Final. 11/21/2019 Left Leg Wound Aerobic Culture: Normal Chalino After 48 Hours. Final. 11/20/2019 Right Foot Tissue Aerobic Culture: Moderate Growth Enterobacter cloacae complex, S=Youssef Sensitive. Final. 11/20/2019 Right Foot Tissue Anaerobic Culture: No Anaerobic Growth at 2 Days. Final. 11/20/2019 Right Foot Bone Aerobic Culture: Light Growth Enterobacter Cloacae Complex, S=Youssef Sensitive. Final. 11/20/2019 Right Foot Bone Anaerobic Culture: No Anaerobic Growth at 2 Days. Final documented in this encounter* Roshan Holguin RN - 12/06/2019 4:12 PM EST DISCHARGE PLAN PROGRESS NOTE Date: 12/06/2019 Time: 4:12 PM Patient Name: Dyllan Huertas Date of : 1960 Sex: Male 6 day los, Here with osteo infection of foot. Accepted and approved for IPR and will go there when bed available. [facility] following for >gmlos. Discharge Readiness Expected Discharge Date: 12/08/19 * Jadon Wolfe PTA - 12/06/2019 12:26 PM EST Physical Therapy PHYSICAL THERAPY TREATMENT NOTE Skilled Therapy Needs After Discharge Are Skilled Therapy Services Needed After Discharge: Yes Intensity of Skilled Therapy: Up to 5 days per week Anticipated Duration of Skilled Therapy: > 30 days DME Recommendation: To be determined at next level of care Rehab Potential: Good Outcomes Measures Prior Function - Basic Mobility Raw Score: 12 Points Prior Function - Basic Mobility % Impaired: 61.94% functionally impaired AM-PAC - Basic Mobility Raw Score: 12 Points AM-PAC - Basic Mobility % Impaired: 61.94% functionally impaired Activity Tolerance fair Therapy Precautions Orthotic Devices: Yes Lower Extremity: External Fixator Weight Bearing Status: X RLE: Non Wt bearing General Rehab Precautions: Fall risk( arjo) Balance Sitting Balance - Static: Supports self independantly with both upper extremities Sitting Balance - Dynamic: Moves / returns trunkal midpoint more than 2 inches in all planes Standing Balance - Static: Supports self with more than 50% effort using upper extremity, requires therapist assisstance Bed Mobility Rolling: Stand by assistance Supine to Sit: Stand by assistance Transfers Sit to Stand: Min Bed to Chair: Min Stand Pivot Transfers: Min, Mod [employer]: Wheeled walker Skilled Intervention: Pt was educated on proper L foot placement, hand placement and mechanics withSTS to improve I and ease with verbal understanding. Pt performed STS x 2 with good follow through with fabio and adhering to NWB status on R LE. Pt sttod for approx 1 min each to improve standing balance and endurance. Pt then again educated with verbal/visual demonstration for pivot transfer with step by step instructions with verbal understanding. Pt performed SPT with fww with decreased assistance. Pt demo'd slow step by step tech and able to improve transfer with increased stability. Pt wascued for hand placement with descent to improve eccentric comntrol. Gait/Locomotion Exercise Ankle Pumps: x20 Lt Straight Leg Raise: x20 isela Quad Sets: x20 isela Heelslides: x20 isela Hip Abduction: x20 isela (hip add x20) Seated Exercises: LAQ x20 isela Skilled Intervention: verbal/tactile cues to correct form with exercises Home Living Type of Home: Facility(from [facility]) Home Layout: One level Bathroom Shower/Tub: Walk-in shower(at [facility], tubshower with shower bench at home) Bathroom Toilet: Standard Bathroom Accessibility: Accessible via walker(accessible with w/c at [facility]) Home Equipment: Wheeled Walker, Wheelchair-manual(knee scooter) Additional Comments: Pt lives at home alone in 1 level home with ramp, but most recently from [facility] after D/C from hospital last week. Prior Level of Function Level of [place]: Independent with ADLs and functional transfers, Independent with homemaking with ambulation Lives With: Alone Receives Help From: Family ADL Assistance: Independent Homemaking Assistance: Independent Vocational: On disability Comments: Ind at [facility] with no AD. Most recently transferring with therapy at [facility] in/out of W/C. For complete objective data, detailed plan of care and patient education refer to: PT EVALUATION flow sheet, PT TREATMENT flow sheet, patient Plan of Care, Plan of Care progress note, and Patient Education. This note stands as the current Discharge Summary upon patient discharge from the hospital or completion of Physical Therapy Plan of Care. * Maria Isabel Awad MD - 12/06/2019 11:01 AM EST 12/04/2019 Patient Name: Dyllan Huertas Admit Date: MR #: [id number] : 1960 Physicians: Rohit Aguilar MD (Family); Alena Mora DPM (Referring) Assessment and Plan: Impression Impression Right foot ulcer status post surgical intervention Severe Charcot deformity status post surgical intervention Enterobacter cloaca infection and gram-negative infection see cultures below RaullTela which is a gram-negative Acute osteomyelitis bone culture on 11/20/2019+ for the same pathogen that was present in January 2019is Enterobacter cloaca pansensitive RAJINDER none on chart 11/24/2019 Osteomyelitis as bone culture is positive from 11/20/2019 for Enterobacter cloaca 11/30/2019 New drainage from the pin site Elevated sed rate Elevated CRP Osteomyelitis right foot 12/01/2019 Osteomyelitis right foot Delayed healing of the plantar foot postop wound Cellulitis of the foot 12/04/2019 Status post surgical intervention with incision and drainage by Dr. Mora on 12/02/2019 cultures now with normal chalino AFB and fungus negative 12/05/2019 Sed rate 85 CRP 85 Per rehab physician there is a risk for the left ankle issues especially with diabetic neuropathy in the left foot and he has had right foot surgery 12/06/2019 OR cultures negative elevated CRP could be just postop We will continue IV antibiotics as planned till January 01 Rocephin 2 g every 24 hours Plan 12/06/2019 Rocephin 2 g to 24 hours till January 01 CBC CMP sed rate CRP periodically Transfer to rehab he has been accepted Will follow the patient in rehab with Dr. Lopez and Dr. Mora 12/05/2019 Rocephin 2 g IV 24 hours continue till January 01 because of the second surgery Elevated sed rate CRP will be followed Await transfer to rehab if approved and bed available 12/04/2019 Rocephin 2 g IV every 24 hours CBC CMP sed rate CRP Rehab referral with Dr. Lopez here if possible We will discuss with podiatry I have discussed with hospitalist OR cultures normal chalino negative AFB and fungus Blood cultures negative so far 12/01/2019 Continue Rocephin till further cultures available CBC CMP sed rate CRP Blood cultures x2 half an hour apart He did bleed well even in the wound clinic yesterday at some point will order arterial Dopplers I have discussed with podiatry at length 11/30/2019 Culture the pin site that is bleeding and draining Follow-up CBC Liver function test Rocephin 2 g IV every 24 hours continue till December 18 May need to go up to additional 2 weeks afterMar 17 which will be January 01 we will decide based on lab results and clinical response If the culture of the pin site shows any additional pathogens may need to readmit for additional IVantibiotics and streamlining treatment Revisit 1 week both I have discussed with podiatry Chief Complaint/Reason for Visit: I am seeing this patient at the request of Dr. Boogie Phan MD. I have reviewed the current hospital record, available laboratory, cardiology and imaging studies as well as available out patient records. History of Present Illness: Admission H&P by Boogie Phan MD on 11/30/2019: Dyllan Huertas is a 59 y.o. male presenting from home with h/o diabetes on disability since 2014 related to a Charcot foot and diabetes developed an ulcer in the beginning of 2018 was being followed by Dr. Robles at the office we have cultures from last year in January with Enterobacter and since then culture with gram-negative bacteria also was seen by Dr. Mora was found to have severe Charcot a corrective surgery was done with placement of an external fixator on 11/20. Today at wound clinic follow up was found to have increased drainage from one of the pin sites, being admitted for continued IV ATB and possible OR/ exploration in am. Exam: Tmax: 99 Urine Output: 2000 Stool: not recorded PACU Vitals 12/06/19 08 BP: 132/81 Pulse: 69 Resp: 16 Temp: 97.8 F (36.6 C) SpO2: 93% Allergies: no known allergies. Current Facility-Administered Medications: acetaminophen (TYLENOL) tablet 650 mg, 650 mg, Oral, Q4H PRN, Boogie Phan MD, 650 mg at 12/05/19 204 albuterol (PROVENTIL) 2.5 mg /3 mL (0.083 %) nebulizer solution 2.5 mg, 2.5 mg, Inhalation, Q2H PRN, Boogie Phan MD aspirin EC tablet 162 mg, 162 mg, Oral, Daily, Boogie Phan MD, 162 mg at 12/06/19 0834 atorvastatin (LIPITOR) tablet 40 mg, 40 mg, Oral, Nightly, Boogie Phan MD, 40 mg at 12/05/19 2100 calcium carbonate (TUMS) chewable tablet 1,000 mg, 1,000 mg, Oral, Daily, Boogie Phan MD, 1,000 mg at 12/06/19 0832 carvediloL (COREG) tablet 12.5 mg, 12.5 mg, Oral, BID, Boogie Phan MD, 12.5 mg at 12/06/19 0834 cefTRIAXone (ROCEPHIN) IVPB 2 g (premix), 2,000 mg, Intravenous, Q24H, Boogie Phan MD, Stopped at 12/05/19 1500 docusate sodium (COLACE) capsule 100 mg, 100 mg, Oral, Daily, Boogie Phan MD, 100 mg at 12/06/19 0833 fenofibrate tablet 160 mg, 160 mg, Oral, Daily with breakfast, Boogie Phan MD, 160 mg at12/06/19 0748 gabapentin (NEURONTIN) capsule 300 mg, 300 mg, Oral, Q8H LESLEY, Boogie Phan MD, 300 mg at 12/06/19 0615 insulin glargine (LANTUS) injection 30 Units, 30 Units, Subcutaneous, BID, Boogie Phan MD, 30 Units at 12/06/19 0837 insulin lispro (HumaLOG) injection 0-15 Units, 0-15 Units, Subcutaneous, at bedtime, Boogie Phan MD, 2 Units at 12/05/19 2100 insulin lispro (HumaLOG) injection 0-30 Units, 0-30 Units, Subcutaneous, TID AC, Boogie Phan MD, 6 Units at 12/06/19 0746 levothyroxine (SYNTHROID, LEVOTHROID) tablet 112 mcg, 112 mcg, Oral, Daily, Boogie Phan MD, 112 mcg at 12/06/19 0615 magnesium oxide (MAG-OX) tablet 400 mg, 400 mg, Oral, Daily, Boogie Phan MD, 400 mg at 12/06/19 0832 melatonin Tab 10 mg, 10 mg, Oral, at bedtime, Boogie Phan MD, 10 mg at 12/05/19 2100 nitroGLYCERIN (NITROSTAT) SL tablet 0.4 mg, 0.4 mg, Sublingual, Q5 Min PRN, Boogie Phan MD ondansetron (ZOFRAN-ODT) disintegrating tablet 4 mg, 4 mg, Oral, Q6H PRN, Boogie Phan MD pneumococcal vaccine (PNU-IMMUNE 23) injection 0.5 mL, 0.5 mL, Intramuscular, Prior To Discharge, Maria Isabel Awad MD tamsulosin (FLOMAX) 24 hr capsule 0.4 mg, 0.4 mg, Oral, After evening meal, Boogie Phan MD, 0.4 mg at 12/05/19 1740 traZODone (DESYREL) tablet 50 mg, 50 mg, Oral, Nightly PRN, Boogie Phan MD PMH/PSH/SH/ reviewed, no change except: Status post surgical intervention by Dr. Mora on 12/02/2019 12/05/2019 Patient was seen by rehab physician rehab evaluation in progress patient's left ankle is at risk because of right foot surgery and diabetic neuropathy in the left foot also Review of Systems: All systems were reviewed and negative except: Denies any fever chills no pain in the right leg and foot 12/06/2019 denies any fever chills or diarrhea Medications Reviewed. Chart Reviewed. Exam Findings: Constitutional: HENT: Pupils reactive head: No oral candidiasis Eyes: No icterus Neck: Supple Cardiovascular: Heart S1-S2 2 by systolic murmur present no S3 Murmur Pulmonary/Chest: Clear Abdominal: Soft Musculoskeletal: No calf tenderness on the right leg Neurological: Has diabetic neuropathy with Charcot is able to wiggle the toes Skin postop dressing with Kerlix no drainage noted today no foul odor Schulte: Bard Schulte catheter with clear urine IV: Midline placed in the right arm site looks good other: External fixator in place no drainage noted on the dressing Pin sites without any bleeding Laboratory and Additional Data Reviewed: Date: 12/06/2019 New labs/results as of last note Update from previous note Tmax: 99 Urine Output: 1250 Stool: not recorded Current Antibiotics: Rocephin 2 gm IV every 24 Hours until 01/02/2020 Previous Antibiotic: Ancef 2,000 mg IV every 8 Hours Pre/Post Procedure I have personally reviewed the labs and results Test results Laboratory and Additional Data Reviewed: Labs: CBC 12/05/2019 07:58 WBC: 7.98 Hgb: 11.4 Hct: 36.3 Platelets: 228 Lymphocytes Abs: 0.52 CMP 12/05/2019 07:58 Glucose: 223 BUN: 19 Creatinine: 0.86 Sodium: 139 Potassium: 4.1 Total Protein: 6.4 Albumin: 2.4 Alk Phos: 75 AST: 20 ALT: 31 Total Bilirubin: 0.4 CRP 12/05/2019 07:58 85.3 Current Cultures: 12/02/2019 Right Foot Tissue Aerobic Culture: Normal Chalino After 48 Hours. Final. 12/02/2019 Right Foot Tissue AFB Culture: No Acid Fast Bacilli Seen. Preliminary. 12/02/2019 Right Foot Tissue Anaerobic Culture: No Anaerobic Growth at 2 Days. Final. 12/02/2019 Right Foot Tissue Fungus Culture: Fungal Culture in Progress. Preliminary. 12/01/2019 Blood Culture #1: No Growth After 5 Days. Final. 12/01/2019 Blood Culture #2: No Growth After 5 Days. Final. 11/30/2019 Right Foot Wound Aerobic Culture: Normal Chalino After 48 Hours. Final. 11/21/2019 Left Leg Wound Aerobic Culture: Normal Chalino After 48 Hours. Final. 11/20/2019 Right Foot Tissue Aerobic Culture: Moderate Growth Enterobacter cloacae complex, S=Youssef Sensitive. Final. 11/20/2019 Right Foot Tissue Anaerobic Culture: No Anaerobic Growth at 2 Days. Final. 11/20/2019 Right Foot Bone Aerobic Culture: Light Growth Enterobacter Cloacae Complex, S=Youssef Sensitive. Final. 11/20/2019 Right Foot Bone Anaerobic Culture: No Anaerobic Growth at 2 Days. Final. Pathology: 12/02/2019 A. Soft tissue, Right Foot, excision: Non-specific ulcer. Date: 12/05/2019 New labs/results as of last note Update from previous note Tmax: 98.8 Urine Output: 2900 Stool: not recorded Current Antibiotics: Rocephin 2 gm IV every 24 Hours Previous Antibiotic: Ancef 2,000 mg IV every 8 Hours Pre/Post Procedure I have personally reviewed the labs and results Test results Laboratory and Additional Data Reviewed: Labs: CBC 12/05/2019 07:58 WBC: 7.98 Hgb: 11.4 Hct: 36.3 Platelets: 228 Lymphocytes Abs: 0.52 CMP 12/05/2019 07:58 Glucose: 223 BUN: 19 Creatinine: 0.86 Sodium: 139 Potassium: 4.1 Total Protein: 6.4 Albumin: 2.4 Alk Phos: 75 AST: 20 ALT: 31 Total Bilirubin: 0.4 CRP 12/05/2019 07:58 85.3 Current Cultures: 12/02/2019 Right Foot Tissue Aerobic Culture: Normal Chalino After 48 Hours. Final. 12/02/2019 Right Foot Tissue AFB Culture: No Acid Fast Bacilli Seen. Preliminary. 12/02/2019 Right Foot Tissue Anaerobic Culture: No Anaerobic Growth at 2 Days. Final. 12/02/2019 Right Foot Tissue Fungus Culture: Fungal Culture in Progress. Preliminary. 12/01/2019 Blood Culture #1: No Growth After 48 Hours. Preliminary. 12/01/2019 Blood Culture #2: No Growth After 48 Hours. Preliminary. 11/30/2019 Right Foot Wound Aerobic Culture: Normal Chalino After 48 Hours. Final. 11/21/2019 Left Leg Wound Aerobic Culture: Normal Chalino After 48 Hours. Final. 11/20/2019 Right Foot Tissue Aerobic Culture: Moderate Growth Enterobacter cloacae complex, S=Youssef Sensitive. Final. 11/20/2019 Right Foot Tissue Anaerobic Culture: No Anaerobic Growth at 2 Days. Final. 11/20/2019 Right Foot Bone Aerobic Culture: Light Growth Enterobacter Cloacae Complex, S=Youssef Sensitive. Final. 11/20/2019 Right Foot Bone Anaerobic Culture: No Anaerobic Growth at 2 Days. Final. Current Antibiotics: Rocephin 2 gm IV every 24 Hours Previous Antibiotic: Ancef 2,000 mg IV every 8 Hours Pre/Post Procedure I have personally reviewed the labs and results Test results Laboratory and Additional Data Reviewed: Results from last 7 days Lab Units 12/01/19 0648 11/30/19 1245 11/29/19 0655 SODIUM mmol/L 140 140 142 POTASSIUM mmol/L 5.0 4.9 5.1 CHLORIDE mmol/L 106 105 107 BUN mg/dL 22 24 36* CREATININE mg/dL 0.98 0.94 1.12 GLUCOSE mg/dL 223* 127* 108* CALCIUM mg/dL 9.1 9.3 9.3 Results from last 7 days Lab Units 12/01/19 0635 11/30/19 1245 WBC K/mcL 8.56 8.72 HGB g/dL 11.2* 10.8* HCT % 35.6* 35.4* PLT K/mcL 232 243 Results from last 7 days Lab Units 11/30/19 1245 ALK PHOS U/L 67 BILIRUBIN TOTAL mg/dL 0.3 TOTAL PROTEIN g/dL 6.5 ALTR U/L 56 AST U/L 42 Current Cultures: 12/02/2019 Right Foot Tissue Aerobic Culture: Normal Chalino After 24 Hours. Preliminary. 12/02/2019 Right Foot Tissue AFB Culture: No Acid Fast Bacilli Seen. Preliminary. 12/01/2019 Blood Culture #1: No Growth After 48 Hours. Preliminary. 12/01/2019 Blood Culture #2: No Growth After 48 Hours. Preliminary. 11/30/2019 Right Foot Wound Aerobic Culture: Normal Chalino After 48 Hours. Final. 11/21/2019 Left Leg Wound Aerobic Culture: Normal Chalino After 48 Hours. Final. 11/20/2019 Right Foot Tissue Aerobic Culture: Moderate Growth Enterobacter cloacae complex, S=Youssef Sensitive. Final. 11/20/2019 Right Foot Tissue Anaerobic Culture: No Anaerobic Growth at 2 Days. Final. 11/20/2019 Right Foot Bone Aerobic Culture: Light Growth Enterobacter Cloacae Complex, S=Youssef Sensitive. Final. 11/20/2019 Right Foot Bone Anaerobic Culture: No Anaerobic Growth at 2 Days. Final. Recent Cultures: 05/30/2019 Right Foot Tissue Aerobic Culture: Normal Chalino After 48 Hours. Final. 05/30/2019 Right Foot Tissue Anaerobic Culture: No Anaerobic Growth at 2 Days. Final. 03/23/2019 Right Foot Wound Aerobic Culture: Heavy Growth Raoultella [place], R=Ampicillin, S=Remainder of panel. 03/09/2019 Right Foot Wound Aerobic Culture: Normal Chalino After 48 Hours. Final. 02/09/2019 Right Foot Wound Aerobic Culture: Normal Chalino After 48 Hours. Final. 01/19/2019 Right Toe Two Wound Aerobic Culture: Heavy Growth Enterobacter Cloacae Complex, S=Youssef Sensitive. Final. Radiology: Right Foot X-Ray 12/02/2019 Intraoperative fluoroscopy provided. Severe bony deformity of the foot as described. Please correlate with operative note. Chest X-Ray 11/23/2019 1. Right arm PICC line in place with tip in superior vena cava. 2. No acute pulmonary disease. 3. Cardiomegaly with evidence of prior open heart surgery. 4. No acute osseous abnormality Right Foot X-Ray 11/20/2019 IMPRESSION: Intraoperative fluoroscopy for localization during right foot and ankle reconstruction and fixation. Please see operative report for details. Left Ankle X-Ray Ordered 11/20/2019 Right Foot X-Ray 11/20/2019 FINDINGS: Two views of the right foot were obtained. There are advanced changes of Charcot arthropathy throughout the right midfoot which appears similar compared to prior examination. There are postsurgical changes of resection of the right 2nd toe proximal phalangeal head. IMPRESSION: 1. Advanced changes of Charcot arthropathy throughout the right midfoot which appear unchanged compared to prior examination. Chest AP/PA X-Ray 11/16/2019 1. No acute pulmonary disease. 2. Cardiomegaly, with evidence of prior open heart surgery. 3. Multilevel degenerative changes of the thoracic spine. MR Right Foot 05/19/2019 1. There is a superficial soft tissue ulcer again seen along the plantar aspect of the midfoot, butthere is no evidence of abscess or osteomyelitis in this region. 2. Stable appearance of the sequela of severe neuropathic arthropathy of the midfoot with collapse of the midfoot again seen resulting in a rocker bottom deformity. 3. A moderate amount of diffuse subcutaneous edema along the dorsum of the foot may be due to reactive edema or a cellulitis, but this is nonspecific. Right Foot X-Ray 04/28/2019 1. Soft tissue irregularity involving the plantar aspect of the foot likely representing the reported ulcer. No bony destruction to suggest osteomyelitis. 2. No evidence of radiopaque foreign body. 3. Stable deformity and degenerative changes involving the midfoot. Findings are consistent with Charcot joint. NM White Cell Scan Spot Limited 03/08/2017 FINDINGS: A focal area of intense abnormal white blood cell migration is noted central plantar aspect of the right foot corresponding to the area of the wound demonstrated radiographically. No other focus of white blood cell migration abnormality is evident within the right or left foot. IMPRESSION: Focal area of abnormal white blood cell migration at the plantar aspect central right foot may be at the wound itself or may be involving the bone with associated fracture as demonstrated radiographically. Anatomic detail is insufficient for differentiation between the two. Renal U/S 03/07/2017 IMPRESSION: Severe thickening of the urinary bladder wall. This could be due to outlet obstruction with hypertrophy of the wall. If there is no such history, this should be evaluated with cystoscopy. CVPS: Arterial Doppler: not on file Venous Doppler: not on file 2D Echo 11/23/2019 Moderate LV enlargement with LVH. Global systolic dysfunction with segmental features. LVEF 30% Elevated LV filling pressures RV is dilated with severe RV dysfunction Mild mitral annular calcification, mild thickening of the aortic valve without hemodynamically significant valvular disease There is a atrial level right to left shunt identified with saline contrast with free breathing andValsalva most likely via PFO LVEF unchanged from to previous echo from 2017 Surgeries: Please see above for surgical history Procedure: Right Foot I&D ADJUSTMENT EXTERNAL FIXATOR Date: 12/02/2019 Surgery: Alena Mora DPM Procedure: RIGHT FOOT RECONSTRUCTION WITH APPLICATION OF CIRCULAR STATIC EXTERNAL FIXATION Date: 11/20/2019 Surgeon: Alena Mora DPM Procedure: ARTHROPLASTY 2ND TOE RIGHT FOOT Date: 01/25/2019 Surgeon: Rosa M Robles DPM Pathology: not on file * Kacy Boen RD - 12/06/2019 10:20 AM EST Nutrition Care Initial Assessment Reason for visit: Dietitian Screen Nutrition Diagnosis: Increased nutrient needs related to increased metabolic demand 2/2 infection and wound healing as evidenced by current tx for osteomyelitis of right ankle s/p debridement. Nutrition Intervention: Encourage PO intakes on prescribed diet regimen Nutrition Prescription: Diet: Cardiac, CCHO- 75 g/meal Oral nutrition supplement: none Tube Feeding: none Nutrition Goals: PO intake > 75% most meals Start Date:12/06/2019 Expected End Date:12/12/2019 Nutrition Education: No needs at this time, reassess as needed. Assessment: Pertinent clinical information: POD#3 status post irrigation and debridement with re-closure of right plantar ulceration, and adjustment of external fixator construct. Plan for inpatient rehab upon discharge. Past Medical History: Diagnosis Date Coronary artery disease Diabetes mellitus, type 2 (HCC) Hyperlipidemia Hypertension Hypothyroidism Peripheral neuropathy Sleep apnea, obstructive does not use CPAP Height: 5' 11 Current weight: 128 kg (282 lb 3 oz) BMI Body mass index is 39.36 kg/m . Weight hx: stable Wt Readings from Last 5 Encounters: 11/30/19 128 kg (282 lb 3 oz) 11/20/19 129.4 kg (285 lb 4.4 oz) 11/10/19 129.3 kg (285 lb) 08/17/19 129.3 kg (285 lb) 05/19/19 128.8 kg (284 lb) Current diet order: Cardiac, CCHO- 75 g/meal Recent intake: 75-100% 3 meals/day. Current intake Likely meets estimated needs. Patient/family comments: Good appetite and eating well per usual. No questions on prescribed diet at this time. Difficulty Chewing/Swallowing: No Skin Integrity: Surgical incision GI Function: WNL Physical Appearance: no signs or symptoms of malnutrition Labs: 11/27/19- HgbA1c 8.8% 12/05/19- CRP 85.3(H); Sed Rate 85(H) Recent Labs 12/05/19 0758 NA 139 K 4.1 BICARB 30 CL 104 GLUCOSE 223* BUN 19 CREATININE 0.86 Scheduled Meds: aspirin 162 mg Oral Daily atorvastatin 40 mg Oral Nightly calcium carbonate 1,000 mg Oral Daily carvediloL 12.5 mg Oral BID cefTRIAXone 2,000 mg Intravenous Q24H docusate sodium 100 mg Oral Daily fenofibrate 160 mg Oral Daily with breakfast gabapentin 300 mg Oral Q8H LESLEY insulin glargine 30 Units Subcutaneous BID lispro insulin 0-15 Units Subcutaneous at bedtime insulin lispro 0-30 Units Subcutaneous TID AC levothyroxine 112 mcg Oral Daily magnesium oxide 400 mg Oral Daily melatonin 10 mg Oral at bedtime tamsulosin 0.4 mg Oral After evening meal Continuous Infusions: none Estimated Energy Needs Total Energy Estimated Needs: 0745-5019 kcal Method for Estimating Needs: 30-33 kcal/kg AdjBW Total Protein Estimated Needs: 90-135 g Method for Estimating Needs: 1.0-1.5 g/kg AdjBW Will continue to follow while in-house. Kacy Bone RDN, DENISHA Pager: [phone] Dietitian Office * Nicholas Cole OTA - 12/06/2019 10:16 AM EST Occupational Therapy OCCUPATIONAL THERAPY TREATMENT NOTE Skilled Therapy Needs After Discharge Are Skilled Therapy Services Needed After Discharge: Yes Intensity of Skilled Therapy: Up to 5 days per week Anticipated Duration of Skilled Therapy: Duration 10 - 30 days DME Recommendation: To be determined at next level of care Rehab Potential: Good Outcomes Measures Prior Function Daily Activity: Raw Score: 24 Prior Function Daily Activity % Impaired: 0% functionally impaired AM-PAC Daily Activity: Raw Score: 18 AM-PAC Daily Activity % Impaired: 46.65% functionally impaired Activity Tolerance Good Therapy Precautions Orthotic Devices: Yes Lower Extremity: External Fixator Weight Bearing Status: X RLE: Non Wt bearing General Rehab Precautions: Fall risk Cognition Overall Cognitive Status: Within Functional Limits Arousal/Alertness: Appropriate responses to stimuli Orientation Level: Oriented X4 Executive functioning: WFL Safety Judgment: Good awareness of safety precautions Problem Solving: Assistance required to generate solutions Attention: Attends to distracted environment Hearing Status: WFL Social Interaction: WFL Comments: Pt. cooperative throughout session. Pt. Plans to D/C to IPR. Skilled Intervention: Pt. followed all commands throughout session. ADL/IADL Grooming : Modified independence Skilled Intervention: Pt. sat edge of bed to complete oral hygiene, hair grooming and facial washing to increase activity tolerance. Bed Mobility Supine to Sit: Supervision Sit to Supine: Supervision Skilled Intervention: Pt. benefited from minimal cueing for all bed mobility. Exercise Seated Exercises: pt. sat edge of bed to complete BUE AROM x10 in all planes to increase UE strength and activity tolerance for ease with functional transfers and self care tasks. pt. tolerated exericses well with minimal vebral cueing for sequencing. Home Living Type of Home: Facility(from [facility]) Home Layout: One level Bathroom Shower/Tub: Walk-in shower(at [facility], tubshower with shower bench at home) Bathroom Toilet: Standard Bathroom Accessibility: Accessible via walker(accessible with w/c at [facility]) Home Equipment: Wheeled Walker, Wheelchair-manual(knee scooter) Additional Comments: Pt lives at home alone in 1 level home with ramp, but most recently from [facility] after D/C from hospital last week. Prior Level of Function Level of [place]: Independent with ADLs and functional transfers, Independent with homemaking with ambulation Lives With: Alone Receives Help From: Family ADL Assistance: Independent Homemaking Assistance: Independent Vocational: On disability Comments: Ind at [facility] with no AD. Most recently transferring with therapy at [facility] in/out of W/C. For complete objective data, detailed plan of care and patient education refer to: OT EVALUATION flow sheet, OT TREATMENT flow sheet, patient Plan of Care, Plan of Care progress note, and Patient Education. This note stands as the current Discharge Summary upon patient discharge from the hospital or completion of Occupational Therapy Plan of Care. * Bhakti Miguel MSW LSW - 12/06/2019 9:57 AM EST DISCHARGE PLAN PROGRESS NOTE Date: 12/06/2019 Time: 9:57 AM Patient Name: Dyllan Huertas Date of : 1960 Sex: Male Voicemail left with Nelda at [facility] reporting that pt has elected to go to [facility] and precert was submitted yesterday. Will call again if pt transitions today. Dr. Lopez noted that Peer to Peer was overturned and pt may transition when bed is available. [facility] Najma VÁZQUEZ in inpatient rehab reported bed is open today and they will call floor when the bed is available for pt. Roz VÁZQUEZ updated and in to speak with pt. Pt explained he has wheel chair from [facility] in hospital bathroom. Voicemail left with Nelda explaining that we will send chair with ptto rehab room, but questioned if they will pick it up. Pt still open to going to [facility] if he needs continued care. No further needs identified. Discharge Readiness Expected Discharge Date: 12/08/19 * Helena Glass LPN - 12/06/2019 7:56 AM EST Date: 12/06/2019 New labs/results as of last note Update from previous note Tmax: 99 Urine Output: 1250 Stool: not recorded Current Antibiotics: Rocephin 2 gm IV every 24 Hours until 01/02/2020 Previous Antibiotic: Ancef 2,000 mg IV every 8 Hours Pre/Post Procedure I have personally reviewed the labs and results Test results Laboratory and Additional Data Reviewed: Labs: CBC 12/05/2019 07:58 WBC: 7.98 Hgb: 11.4 Hct: 36.3 Platelets: 228 Lymphocytes Abs: 0.52 CMP 12/05/2019 07:58 Glucose: 223 BUN: 19 Creatinine: 0.86 Sodium: 139 Potassium: 4.1 Total Protein: 6.4 Albumin: 2.4 Alk Phos: 75 AST: 20 ALT: 31 Total Bilirubin: 0.4 CRP 12/05/2019 07:58 85.3 Current Cultures: 12/02/2019 Right Foot Tissue Aerobic Culture: Normal Chalino After 48 Hours. Final. 12/02/2019 Right Foot Tissue AFB Culture: No Acid Fast Bacilli Seen. Preliminary. 12/02/2019 Right Foot Tissue Anaerobic Culture: No Anaerobic Growth at 2 Days. Final. 12/02/2019 Right Foot Tissue Fungus Culture: Fungal Culture in Progress. Preliminary. 12/01/2019 Blood Culture #1: No Growth After 5 Days. Final. 12/01/2019 Blood Culture #2: No Growth After 5 Days. Final. 11/30/2019 Right Foot Wound Aerobic Culture: Normal Chalino After 48 Hours. Final. 11/21/2019 Left Leg Wound Aerobic Culture: Normal Chalino After 48 Hours. Final. 11/20/2019 Right Foot Tissue Aerobic Culture: Moderate Growth Enterobacter cloacae complex, S=Youssef Sensitive. Final. 11/20/2019 Right Foot Tissue Anaerobic Culture: No Anaerobic Growth at 2 Days. Final. 11/20/2019 Right Foot Bone Aerobic Culture: Light Growth Enterobacter Cloacae Complex, S=Youssef Sensitive. Final. 11/20/2019 Right Foot Bone Anaerobic Culture: No Anaerobic Growth at 2 Days. Final. Pathology: 12/02/2019 A. Soft tissue, Right Foot, excision: Non-specific ulcer. * Najma Colindres RN - 12/06/2019 7:34 AM EST Insurance denied IPR, Dr. Lopez to do a P2P today. Cathy Colindres RN CRRN * Man Crews MD - 12/05/2019 1:55 PM EST [facility] Inpatient Follow-up 12/01/2019 Man Crews MD [facility] Patient: Dyllan Huertas Date of : 1960 (59 y.o.) PCP: Rohit Aguilar MD ASSESSMENT/PLAN: Dyllan Huertas 59 y.o. male Principal Problem: Subacute osteomyelitis of right ankle (HCC) Active Problems: 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) Foot ulcer with fat layer exposed, right (HCC) Morbid obesity (HCC) JAYDEN (obstructive sleep apnea) Mixed hyperlipidemia PLAN: Pod#1 s/p debridement rt ankle, drain placed No fever On IV rocephin per ID team. Inadequate glycemic control , will change lantus to 30u bid and ISS 3/ -- SEEN AND EXAMINED -- DISCUSSED WITH NURSING STAFF -- CLINICALLY STABLE -- S/ DEBRIDEMENT RIGHT ANKLE -- NO FEVER -- NO LEUKOCYTOSIS -- BLOOD CULTURE IS NEGATIVE -- WOUND CULTURE IS NEGATIVE -- PODIATRY IS FOLLOWING -- ROCEPHIN IV DAILY -- DC PLANNING 12/04 -- SEEN AND EXAMINED -- PATIENT HAS BEEN HERE SINCE -- NO COMPLAINTS -- NO FEVER -- BLOOD CULTURE IS NEGATIVE -- WOUND CULTURE GREW Moderate Growth Enterobacter cloacae complexAbnormal -- REPEAT WOUND CULTURE IS NEGATIVE -- ID IS FOLLOWING -- ROCEPHIN IV DAILY -- PODIATRY IS FOLLOWING -- REFERRAL TO ACUTE REHAB WAS DONE -- DC PLANNING SUBJECTIVE: NO COMPLAINTS AFEBRILE All other systems reviewed and negative other than noted above. OBJECTIVE: Physical Examination: BP 126/70 (BP Location: Left arm, Patient Position: Sitting) Pulse 82 Temp 98.5 F (36.9 C) (Oral) Resp 16 Ht 5' 11 Wt 128 kg (282 lb 3 oz) SpO2 96% BMI 39.36 kg/m General Appearance: Alert, well appearing, and in no acute distress. HEENT: Head - Normocephalic, atraumatic. Eyes - ALEKS bilaterally and EOMI. Ears - normal external appearance, hearing intact. Nose - normal, no erythema. Throat - mucous membranes moist, pharynx without lesions. Neck: Supple, trachea midline. Cardiovascular: S1, S2 normal. No murmurs, rubs, clicks or gallops appreciated. No pedal edema. Respiratory: Lungs clear to auscultation, no wheezes, rales or rhonchi heard. Abdomen: Soft, non-tender, normal bowel sounds, non-distended, no masses or organomegaly appreciated. Neurological: Grossly normal motor and sensory exam. No focal deficits. Musculoskeletal: No joint tenderness, deformity or swelling. Skin: Normal coloration and turgor. No rashes. Psych: Alert, oriented x 3. Normal mood and affect. CURRENT MEDICATIONS: aspirin 162 mg Oral Daily atorvastatin 40 mg Oral Nightly calcium carbonate 1,000 mg Oral Daily carvediloL 12.5 mg Oral BID cefTRIAXone 2,000 mg Intravenous Q24H docusate sodium 100 mg Oral Daily fenofibrate 160 mg Oral Daily with breakfast gabapentin 300 mg Oral Q8H LESLEY insulin glargine 30 Units Subcutaneous BID lispro insulin 0-15 Units Subcutaneous at bedtime insulin lispro 0-30 Units Subcutaneous TID AC levothyroxine 112 mcg Oral Daily magnesium oxide 400 mg Oral Daily melatonin 10 mg Oral at bedtime tamsulosin 0.4 mg Oral After evening meal Results/Medications Reviewed 12/05/19 1:56 PM: Results from last 7 days Lab Units 12/05/19 0758 12/02/19 0446 12/01/19 0648 SODIUM mmol/L 139 137 140 POTASSIUM mmol/L 4.1 4.7 5.0 CHLORIDE mmol/L 104 102 106 BUN mg/dL 19 19 22 CREATININE mg/dL 0.86 1.06 0.98 GLUCOSE mg/dL 223* 256* 223* CALCIUM mg/dL 9.1 9.2 9.1 Results from last 7 days Lab Units 12/05/19 0758 12/02/19 0446 12/01/19 0635 WBC K/mcL 7.98 9.43 8.56 HGB g/dL 11.4* 11.5* 11.2* HCT % 36.3* 36.7* 35.6* PLT K/mcL 228 235 232 Results from last 7 days Lab Units 12/05/19 0758 ALK PHOS U/L 75 BILIRUBIN TOTAL mg/dL 0.4 TOTAL PROTEIN g/dL 6.4 ALTR U/L 31 AST U/L 20 CULTURES: Reviewed 1:56 PM IMAGING: Reviewed 1:56 PM * Alena Mora DPM - 12/05/2019 12:47 PM EST Subjective: Patient is a pleasant 59-year-old male who is POD#3 status post irrigation and debridement with re-closure of right plantar ulceration, and adjustment of external fixator construct. He states that heis doing well. No pedal complaints. No pain. He has been getting up with physical therapy form bed to chair. No fevers, nausea, vomiting, chest pain, shortness of breath, or any other constitutional symptoms. Objective: Vascular: DP and PT pulses are palpable 2/4. Cap refill time is brisk to distal digits. Skin temperature is warm to warm from proximal tibial tuberosity to distal digits. Edema much improved from right foot. Neuro: Gross sensation is intact. Protective sensation is absent. Dermatologic: Surgical incision site is well coapted with sutures intact. No erythema, edema, drainage, or any acute signs of infection. All pin sites are dry without erythema or edema. No drainage from pin sites. HV drain intact with 35 cc of serosanguinous drainage. Musculoskeletal: Patient is able to wiggle digits. Compartments are soft and compressible. No calf pain. Assessment: POD#3 - status post irrigation and debridement with reclosure of right plantar wound and adjustmentof external fixator construct (DOS: 12/01/2019 - Dr. Mora) 2 week status post right midfoot wedge resection and application of external fixator for Charcot reconstruction (Date of surgery 11/20/2019 -Dr. Mora). Plan: Patient was seen and evaluated. Discussed all clinical findings. He is doing very well today Continue IV antibiotics Dressing was changed today with nursing. All pins were cleaned. HV drain was maintained Patient can continue to get up from bed to chair Strict NWB to right lower extremity at all times Regarding his inpatient rehab, patient has been doing very well since his re- admission and close monitoring. His surgical incision site is improving and his external fixator construct is intact without any signs of motion or lucency. This is pertinent to ensure a speedy recovery without complications. Patient has undergone a major charcot reconstructive surgery on his right lower extremity that needs close monitoring. His inpatient rehab allows me to evaluate him almost daily. In addition, patient has charcot deformity on his left midfoot which is at high risk for further collapse, re-ulceration, and infection. For that reasons, inpatient rehab is pertinent to ensure proper physical and occu pational therapies in addition to close medical management of diabetes, hypertension, and IV antibiotics. Alena Mora DPM, MS Podiatric Physician and Surgeon [phone] * Maria Isabel Awad MD - 12/05/2019 11:32 AM EST 12/04/2019 Patient Name: Dyllan Huertas Admit Date: MR #: [id number] : 1960 Physicians: Rohit Aguilar MD (Family); Alena Mora DPM (Referring) Assessment and Plan: Impression Impression Right foot ulcer status post surgical intervention Severe Charcot deformity status post surgical intervention Enterobacter cloaca infection and gram-negative infection see cultures below RaullTela which is a gram-negative Acute osteomyelitis bone culture on 11/20/2019+ for the same pathogen that was present in January 2019is Enterobacter cloaca pansensitive RAJINDER none on chart 11/24/2019 Osteomyelitis as bone culture is positive from 11/20/2019 for Enterobacter cloaca 11/30/2019 New drainage from the pin site Elevated sed rate Elevated CRP Osteomyelitis right foot 12/01/2019 Osteomyelitis right foot Delayed healing of the plantar foot postop wound Cellulitis of the foot 12/04/2019 Status post surgical intervention with incision and drainage by Dr. Mora on 12/02/2019 cultures now with normal chalino AFB and fungus negative 12/05/2019 Sed rate 85 CRP 85 Per rehab physician there is a risk for the left ankle issues especially with diabetic neuropathy in the left foot and he has had right foot surgery Plan 12/05/2019 Rocephin 2 g IV 24 hours continue till January 01 because of the second surgery Elevated sed rate CRP will be followed Await transfer to rehab if approved and bed available 12/04/2019 Rocephin 2 g IV every 24 hours CBC CMP sed rate CRP Rehab referral with Dr. Lopez here if possible We will discuss with podiatry I have discussed with hospitalist OR cultures normal chalino negative AFB and fungus Blood cultures negative so far 12/01/2019 Continue Rocephin till further cultures available CBC CMP sed rate CRP Blood cultures x2 half an hour apart He did bleed well even in the wound clinic yesterday at some point will order arterial Dopplers I have discussed with podiatry at length 11/30/2019 Culture the pin site that is bleeding and draining Follow-up CBC Liver function test Rocephin 2 g IV every 24 hours continue till December 18 May need to go up to additional 2 weeks afterMar which will be January 01 we will decide based on lab results and clinical response If the culture of the pin site shows any additional pathogens may need to readmit for additional IVantibiotics and streamlining treatment Revisit 1 week both I have discussed with podiatry Chief Complaint/Reason for Visit: I am seeing this patient at the request of Dr. Boogie Phan MD. I have reviewed the current hospital record, available laboratory, cardiology and imaging studies as well as available out patient records. History of Present Illness: Admission H&P by Boogie Phan MD on 11/30/2019: Dyllan Huertas is a 59 y.o. male presenting from home with h/o diabetes on disability since 2014 related to a Charcot foot and diabetes developed an ulcer in the beginning of 2018 was being followed by Dr. Robles at the office we have cultures from last year in January with Enterobacter and since then culture with gram-negative bacteria also was seen by Dr. Mora was found to have severe Charcot a corrective surgery was done with placement of an external fixator on 11/20. Today at wound clinic follow up was found to have increased drainage from one of the pin sites, being admitted for continued IV ATB and possible OR/ exploration in am. Exam: Tmax: 99 Urine Output: 2000 Stool: not recorded PACU Vitals 12/05/19 1127 BP: 126/70 Pulse: 82 Resp: 16 Temp: 98.5 F (36.9 C) SpO2: 96% Allergies: no known allergies. Current Facility-Administered Medications: acetaminophen (TYLENOL) tablet 650 mg, 650 mg, Oral, Q4H PRN, Boogie Phan MD albuterol (PROVENTIL) 2.5 mg /3 mL (0.083 %) nebulizer solution 2.5 mg, 2.5 mg, Inhalation, Q2H PRN, Boogie Phan MD aspirin EC tablet 162 mg, 162 mg, Oral, Daily, Boogie Phan MD, 162 mg at 12/05/19 08 atorvastatin (LIPITOR) tablet 40 mg, 40 mg, Oral, Nightly, Boogie Phan MD, 40 mg at 12/04/19 215 calcium carbonate (TUMS) chewable tablet 1,000 mg, 1,000 mg, Oral, Daily, Boogie Phan MD, 1,000 mg at 12/05/19 0803 carvediloL (COREG) tablet 12.5 mg, 12.5 mg, Oral, BID, Boogie Phan MD, 12.5 mg at 12/05/19 0803 cefTRIAXone (ROCEPHIN) IVPB 2 g (premix), 2,000 mg, Intravenous, Q24H, Boogie Phan MD, Stopped at 12/04/19 1549 docusate sodium (COLACE) capsule 100 mg, 100 mg, Oral, Daily, Boogie Phan MD, 100 mg at 12/05/19 0802 fenofibrate tablet 160 mg, 160 mg, Oral, Daily with breakfast, Boogie Phan MD, 160 mg at12/05/19 0803 gabapentin (NEURONTIN) capsule 300 mg, 300 mg, Oral, Q8H LESLEY, Boogie Phan MD, 300 mg at 12/05/19 0554 insulin glargine (LANTUS) injection 30 Units, 30 Units, Subcutaneous, BID, Boogie Phan MD, 30 Units at 12/05/19 0803 insulin lispro (HumaLOG) injection 0-15 Units, 0-15 Units, Subcutaneous, at bedtime, Boogie Phan MD, 2 Units at 12/04/19 2213 insulin lispro (HumaLOG) injection 0-30 Units, 0-30 Units, Subcutaneous, TID AC, Boogie Phan MD, 8 Units at 12/05/19 0804 levothyroxine (SYNTHROID, LEVOTHROID) tablet 112 mcg, 112 mcg, Oral, Daily, Boogie Phan MD, 112 mcg at 12/05/19 0554 magnesium oxide (MAG-OX) tablet 400 mg, 400 mg, Oral, Daily, Boogie Phan MD, 400 mg at 12/05/19 0803 melatonin Tab 10 mg, 10 mg, Oral, at bedtime, Boogie Phan MD, 10 mg at 12/04/19 215 nitroGLYCERIN (NITROSTAT) SL tablet 0.4 mg, 0.4 mg, Sublingual, Q5 Min PRN, Boogie Phan MD ondansetron (ZOFRAN-ODT) disintegrating tablet 4 mg, 4 mg, Oral, Q6H PRN, Boogie Phan MD pneumococcal vaccine (PNU-IMMUNE 23) injection 0.5 mL, 0.5 mL, Intramuscular, Prior To Discharge, Maria Isabel Awad MD tamsulosin (FLOMAX) 24 hr capsule 0.4 mg, 0.4 mg, Oral, After evening meal, Boogie Phan MD, 0.4 mg at 03/02/20 1737 traZODone (DESYREL) tablet 50 mg, 50 mg, Oral, Nightly PRN, Boogie Phan MD PMH/PSH/SH/ reviewed, no change except: Status post surgical intervention by Dr. Mora on 12/02/2019 12/05/2019 Patient was seen by rehab physician rehab evaluation in progress patient's left ankle is at risk because of right foot surgery and diabetic neuropathy in the left foot also Review of Systems: All systems were reviewed and negative except: Denies any fever chills no pain in the right leg and foot Medications Reviewed. Chart Reviewed. Exam Findings: Constitutional: HENT: Pupils reactive head: No oral candidiasis Eyes: No icterus Neck: Supple Cardiovascular: Heart S1-S2 2 by systolic murmur present no S3 Murmur Pulmonary/Chest: Clear Abdominal: Soft Musculoskeletal: No calf tenderness on the right leg Neurological: Has diabetic neuropathy with Charcot is able to wiggle the toes Skin postop dressing with Kerlix no drainage noted today no foul odor Schulte: Bard Schulte catheter with clear urine IV: Midline placed in the right arm site looks good other: External fixator in place no drainage noted on the dressing Pin sites without any bleeding Laboratory and Additional Data Reviewed: Date: 12/05/2019 New labs/results as of last note Update from previous note Tmax: 98.8 Urine Output: 2900 Stool: not recorded Current Antibiotics: Rocephin 2 gm IV every 24 Hours Previous Antibiotic: Ancef 2,000 mg IV every 8 Hours Pre/Post Procedure I have personally reviewed the labs and results Test results Laboratory and Additional Data Reviewed: Labs: CBC 12/05/2019 07:58 WBC: 7.98 Hgb: 11.4 Hct: 36.3 Platelets: 228 Lymphocytes Abs: 0.52 CMP 12/05/2019 07:58 Glucose: 223 BUN: 19 Creatinine: 0.86 Sodium: 139 Potassium: 4.1 Total Protein: 6.4 Albumin: 2.4 Alk Phos: 75 AST: 20 ALT: 31 Total Bilirubin: 0.4 CRP 12/05/2019 07:58 85.3 Current Cultures: 12/02/2019 Right Foot Tissue Aerobic Culture: Normal Chalino After 48 Hours. Final. 12/02/2019 Right Foot Tissue AFB Culture: No Acid Fast Bacilli Seen. Preliminary. 12/02/2019 Right Foot Tissue Anaerobic Culture: No Anaerobic Growth at 2 Days. Final. 12/02/2019 Right Foot Tissue Fungus Culture: Fungal Culture in Progress. Preliminary. 12/01/2019 Blood Culture #1: No Growth After 48 Hours. Preliminary. 12/01/2019 Blood Culture #2: No Growth After 48 Hours. Preliminary. 11/30/2019 Right Foot Wound Aerobic Culture: Normal Chalino After 48 Hours. Final. 11/21/2019 Left Leg Wound Aerobic Culture: Normal Chalino After 48 Hours. Final. 11/20/2019 Right Foot Tissue Aerobic Culture: Moderate Growth Enterobacter cloacae complex, S=Youssef Sensitive. Final. 11/20/2019 Right Foot Tissue Anaerobic Culture: No Anaerobic Growth at 2 Days. Final. 11/20/2019 Right Foot Bone Aerobic Culture: Light Growth Enterobacter Cloacae Complex, S=Youssef Sensitive. Final. 11/20/2019 Right Foot Bone Anaerobic Culture: No Anaerobic Growth at 2 Days. Final. Current Antibiotics: Rocephin 2 gm IV every 24 Hours Previous Antibiotic: Ancef 2,000 mg IV every 8 Hours Pre/Post Procedure I have personally reviewed the labs and results Test results Laboratory and Additional Data Reviewed: Results from last 7 days Lab Units 12/01/19 0648 11/30/19 1245 11/29/19 0655 SODIUM mmol/L 140 140 142 POTASSIUM mmol/L 5.0 4.9 5.1 CHLORIDE mmol/L 106 105 107 BUN mg/dL 22 24 36* CREATININE mg/dL 0.98 0.94 1.12 GLUCOSE mg/dL 223* 127* 108* CALCIUM mg/dL 9.1 9.3 9.3 Results from last 7 days Lab Units 12/01/19 0635 11/30/19 1245 WBC K/mcL 8.56 8.72 HGB g/dL 11.2* 10.8* HCT % 35.6* 35.4* PLT K/mcL 232 243 Results from last 7 days Lab Units 11/30/19 1245 ALK PHOS U/L 67 BILIRUBIN TOTAL mg/dL 0.3 TOTAL PROTEIN g/dL 6.5 ALTR U/L 56 AST U/L 42 Current Cultures: 12/02/2019 Right Foot Tissue Aerobic Culture: Normal Chalino After 24 Hours. Preliminary. 12/02/2019 Right Foot Tissue AFB Culture: No Acid Fast Bacilli Seen. Preliminary. 12/01/2019 Blood Culture #1: No Growth After 48 Hours. Preliminary. 12/01/2019 Blood Culture #2: No Growth After 48 Hours. Preliminary. 11/30/2019 Right Foot Wound Aerobic Culture: Normal Chalino After 48 Hours. Final. 11/21/2019 Left Leg Wound Aerobic Culture: Normal Chalino After 48 Hours. Final. 11/20/2019 Right Foot Tissue Aerobic Culture: Moderate Growth Enterobacter cloacae complex, S=Youssef Sensitive. Final. 11/20/2019 Right Foot Tissue Anaerobic Culture: No Anaerobic Growth at 2 Days. Final. 11/20/2019 Right Foot Bone Aerobic Culture: Light Growth Enterobacter Cloacae Complex, S=Youssef Sensitive. Final. 11/20/2019 Right Foot Bone Anaerobic Culture: No Anaerobic Growth at 2 Days. Final. Recent Cultures: 05/30/2019 Right Foot Tissue Aerobic Culture: Normal Chalino After 48 Hours. Final. 05/30/2019 Right Foot Tissue Anaerobic Culture: No Anaerobic Growth at 2 Days. Final. 03/23/2019 Right Foot Wound Aerobic Culture: Heavy Growth Raoultella [place], R=Ampicillin, S=Remainder of panel. 03/09/2019 Right Foot Wound Aerobic Culture: Normal Chalino After 48 Hours. Final. 02/09/2019 Right Foot Wound Aerobic Culture: Normal Chalino After 48 Hours. Final. 01/19/2019 Right Toe Two Wound Aerobic Culture: Heavy Growth Enterobacter Cloacae Complex, S=Youssef Sensitive. Final. Radiology: Right Foot X-Ray 12/02/2019 Intraoperative fluoroscopy provided. Severe bony deformity of the foot as described. Please correlate with operative note. Chest X-Ray 11/23/2019 1. Right arm PICC line in place with tip in superior vena cava. 2. No acute pulmonary disease. 3. Cardiomegaly with evidence of prior open heart surgery. 4. No acute osseous abnormality Right Foot X-Ray 11/20/2019 IMPRESSION: Intraoperative fluoroscopy for localization during right foot and ankle reconstruction and fixation. Please see operative report for details. Left Ankle X-Ray Ordered 11/20/2019 Right Foot X-Ray 11/20/2019 FINDINGS: Two views of the right foot were obtained. There are advanced changes of Charcot arthropathy throughout the right midfoot which appears similar compared to prior examination. There are postsurgical changes of resection of the right 2nd toe proximal phalangeal head. IMPRESSION: 1. Advanced changes of Charcot arthropathy throughout the right midfoot which appear unchanged compared to prior examination. Chest AP/PA X-Ray 11/16/2019 1. No acute pulmonary disease. 2. Cardiomegaly, with evidence of prior open heart surgery. 3. Multilevel degenerative changes of the thoracic spine. MR Right Foot 05/19/2019 1. There is a superficial soft tissue ulcer again seen along the plantar aspect of the midfoot, butthere is no evidence of abscess or osteomyelitis in this region. 2. Stable appearance of the sequela of severe neuropathic arthropathy of the midfoot with collapse of the midfoot again seen resulting in a rocker bottom deformity. 3. A moderate amount of diffuse subcutaneous edema along the dorsum of the foot may be due to reactive edema or a cellulitis, but this is nonspecific. Right Foot X-Ray 04/28/2019 1. Soft tissue irregularity involving the plantar aspect of the foot likely representing the reported ulcer. No bony destruction to suggest osteomyelitis. 2. No evidence of radiopaque foreign body. 3. Stable deformity and degenerative changes involving the midfoot. Findings are consistent with Charcot joint. NM White Cell Scan Spot Limited 03/08/2017 FINDINGS: A focal area of intense abnormal white blood cell migration is noted central plantar aspect of the right foot corresponding to the area of the wound demonstrated radiographically. No other focus of white blood cell migration abnormality is evident within the right or left foot. IMPRESSION: Focal area of abnormal white blood cell migration at the plantar aspect central right foot may be at the wound itself or may be involving the bone with associated fracture as demonstrated radiographically. Anatomic detail is insufficient for differentiation between the two. Renal U/S 03/07/2017 IMPRESSION: Severe thickening of the urinary bladder wall. This could be due to outlet obstruction with hypertrophy of the wall. If there is no such history, this should be evaluated with cystoscopy. CVPS: Arterial Doppler: not on file Venous Doppler: not on file 2D Echo 11/23/2019 Moderate LV enlargement with LVH. Global systolic dysfunction with segmental features. LVEF 30% Elevated LV filling pressures RV is dilated with severe RV dysfunction Mild mitral annular calcification, mild thickening of the aortic valve without hemodynamically significant valvular disease There is a atrial level right to left shunt identified with saline contrast with free breathing andValsalva most likely via PFO LVEF unchanged from to previous echo from 2017 Surgeries: Please see above for surgical history Procedure: Right Foot I&D ADJUSTMENT EXTERNAL FIXATOR Date: 12/02/2019 Surgery: Alena Mora DPM Procedure: RIGHT FOOT RECONSTRUCTION WITH APPLICATION OF CIRCULAR STATIC EXTERNAL FIXATION Date: 11/20/2019 Surgeon: Alena Mora DPM Procedure: ARTHROPLASTY 2ND TOE RIGHT FOOT Date: 01/25/2019 Surgeon: Rosa M Robles DPM Pathology: not on file * Jadon Wolfe PTA - 12/05/2019 10:30 AM EST Physical Therapy PHYSICAL THERAPY TREATMENT NOTE Skilled Therapy Needs After Discharge Are Skilled Therapy Services Needed After Discharge: Yes Intensity of Skilled Therapy: Up to 5 days per week Anticipated Duration of Skilled Therapy: > 30 days DME Recommendation: To be determined at next level of care Rehab Potential: Good Outcomes Measures Prior Function - Basic Mobility Raw Score: 12 Points Prior Function - Basic Mobility % Impaired: 61.94% functionally impaired AM-PAC - Basic Mobility Raw Score: 12 Points AM-PAC - Basic Mobility % Impaired: 61.94% functionally impaired Activity Tolerance fair- Therapy Precautions Orthotic Devices: Yes Lower Extremity: External Fixator, Right Weight Bearing Status: X RLE: Non Wt bearing General Rehab Precautions: Fall risk(ARJO for transfers) Balance Sitting Balance - Static: Supports self independantly with both upper extremities Sitting Balance - Dynamic: Moves / returns trunkal midpoint more than 2 inches in all planes Standing Balance - Static: Supports self with 25-50% effort using upper extremity, requires therapist assistance Bed Mobility Rolling: Stand by assistance Supine to Sit: Stand by assistance Transfers Sit to Stand: Mod, Max Bed to Chair: Mod, Max Stand Pivot Transfers: Mod, Max [employer]: Wheeled walker Skilled Intervention:Pt was educated with verbal/visual demonstration for safe pivot transfer with proper sequence and tech with verbal understanding. Pt stood from eob with maxa to fww. Pt was unsteady with transfer and upon standing but able to adhere with NWB status on R LE. Pt stood for approx 1 min with cues to for tech. Pt then stood again with mod/maxa to fww. Pt then pivoted to w/c with cues for AD conttrol and foot placement for stability and safety. Pt was unsteady and anxious with moda for pivot. Pt had 2 LOB secondary to L foot placement and was cued to widen L LE to center to walker. Pt then was maxa to lower to chair with cues for hand placement with poor+ eccentric control Exercise Ankle Pumps: x20 Lt Straight Leg Raise: x20 isela Quad Sets: x20 isela Heelslides: x20 Lt Hip Abduction: x20 isela(hip add x20) Home Living Type of Home: Facility(from [facility]) Home Layout: One level Bathroom Shower/Tub: Walk-in shower(at [facility], tubshower with shower bench at home) Bathroom Toilet: Standard Bathroom Accessibility: Accessible via walker(accessible with w/c at [facility]) Home Equipment: Wheeled Walker, Wheelchair-manual(knee scooter) Additional Comments: Pt lives at home alone in 1 level home with ramp, but most recently from [facility] after D/C from hospital last week. Prior Level of Function Level of [place]: Independent with ADLs and functional transfers, Independent with homemaking with ambulation Lives With: Alone Receives Help From: Family ADL Assistance: Independent Homemaking Assistance: Independent Vocational: On disability Comments: Ind at [facility] with no AD. Most recently transferring with therapy at [facility] in/out of W/C. For complete objective data, detailed plan of care and patient education refer to: PT EVALUATION flow sheet, PT TREATMENT flow sheet, patient Plan of Care, Plan of Care progress note, and Patient Education. This note stands as the current Discharge Summary upon patient discharge from the hospital or completion of Physical Therapy Plan of Care. * Helena Glass LPN - 12/05/2019 8:55 AM EST Date: 12/05/2019 New labs/results as of last note Update from previous note Tmax: 98.8 Urine Output: 2900 Stool: not recorded Current Antibiotics: Rocephin 2 gm IV every 24 Hours Previous Antibiotic: Ancef 2,000 mg IV every 8 Hours Pre/Post Procedure I have personally reviewed the labs and results Test results Laboratory and Additional Data Reviewed: Labs: CBC 12/05/2019 07:58 WBC: 7.98 Hgb: 11.4 Hct: 36.3 Platelets: 228 Lymphocytes Abs: 0.52 CMP 12/05/2019 07:58 Glucose: 223 BUN: 19 Creatinine: 0.86 Sodium: 139 Potassium: 4.1 Total Protein: 6.4 Albumin: 2.4 Alk Phos: 75 AST: 20 ALT: 31 Total Bilirubin: 0.4 CRP 12/05/2019 07:58 85.3 Current Cultures: 12/02/2019 Right Foot Tissue Aerobic Culture: Normal Chalino After 48 Hours. Final. 12/02/2019 Right Foot Tissue AFB Culture: No Acid Fast Bacilli Seen. Preliminary. 12/02/2019 Right Foot Tissue Anaerobic Culture: No Anaerobic Growth at 2 Days. Final. 12/02/2019 Right Foot Tissue Fungus Culture: Fungal Culture in Progress. Preliminary. 12/01/2019 Blood Culture #1: No Growth After 48 Hours. Preliminary. 12/01/2019 Blood Culture #2: No Growth After 48 Hours. Preliminary. 11/30/2019 Right Foot Wound Aerobic Culture: Normal Chalino After 48 Hours. Final. 11/21/2019 Left Leg Wound Aerobic Culture: Normal Chalino After 48 Hours. Final. 11/20/2019 Right Foot Tissue Aerobic Culture: Moderate Growth Enterobacter cloacae complex, S=Youssef Sensitive. Final. 11/20/2019 Right Foot Tissue Anaerobic Culture: No Anaerobic Growth at 2 Days. Final. 11/20/2019 Right Foot Bone Aerobic Culture: Light Growth Enterobacter Cloacae Complex, S=Youssef Sensitive. Final. 11/20/2019 Right Foot Bone Anaerobic Culture: No Anaerobic Growth at 2 Days. Final. * Nupur Davis DPM - 12/04/2019 6:02 PM EST Subjective: Patient is a pleasant 59-year-old male who is POD#2 status post irrigation and debridement with re-closure of right plantar ulceration, and adjustment of external fixator construct. He states that heis doing well. No pedal complaints. No pain. Objective: Vascular: DP and PT pulses are palpable 2/4. Cap refill time is brisk to distal digits. Skin temperature is warm to warm from proximal tibial tuberosity to distal digits. Edema improved from right foot. Neuro: Gross sensation is intact. Protective sensation is absent. Dermatologic: Dressing to right foot is clean and dry. HV drain intact with 10 cc of serosanguinousdrainage. Musculoskeletal: Patient is able to wiggle digits. Compartments are soft and compressible. No calf pain. Assessment: POD#2 - status post irrigation and debridement with reclosure of right plantar wound and adjustmentof external fixator construct (DOS: 12/01/2019 - Dr. Mora) 2 week status post right midfoot wedge resection and application of external fixator for Charcot reconstruction (Date of surgery 11/20/2019 -Dr. Mora). Partial dehiscence, right plantar foot Plan: Patient was seen and evaluated. Discussed all clinical findings. He is doing very well today Continue IV antibiotics Dressing to remain intact. Do not remove or change. Patient can get up from bed to chair today Okay to be evaluated with occupational therapy and may train with physical therapy as needed Strict NWB to right lower extremity at all times Rehab placement pending Dr. Mora to re-evaluate tomorrow and perform dressing change * Najma Colindres RN - 12/04/2019 5:12 PM EST Will start pre cert for IPR. Cathy Colindres RN CRRN * Dileep Pedraza - 12/04/2019 4:06 PM EST [facility]ed [facility] and offered communion, but patient declined today. Charted on behalf of [facility]. Dileep Pedraza, PhD Inside Phone Sales Pastoral Care Department [facility] Office: [phone] 12/04/19 0900 Clinical Encounter Type Visit Type Non Crisis Non Crisis Visit Attempt;Sacr[facility] Process Hand Visit Length (minutes) 5 Sacramental Encounters Communion Given Indicator No * Maria Isabel Awad MD - 12/04/2019 12:35 PM EST 12/04/2019 Patient Name: Dyllan Huertas Admit Date: MR #: [id number] : 1960 Physicians: Rohit Aguilar MD (Family); Alena Mora DPM (Referring) Assessment and Plan: Impression Impression Right foot ulcer status post surgical intervention Severe Charcot deformity status post surgical intervention Enterobacter cloaca infection and gram-negative infection see cultures below RaullTela which is a gram-negative Acute osteomyelitis bone culture on 11/20/2019+ for the same pathogen that was present in January 2019is Enterobacter cloaca pansensitive RAJINDER none on chart 11/24/2019 Osteomyelitis as bone culture is positive from 11/20/2019 for Enterobacter cloaca 11/30/2019 New drainage from the pin site Elevated sed rate Elevated CRP Osteomyelitis right foot 12/01/2019 Osteomyelitis right foot Delayed healing of the plantar foot postop wound Cellulitis of the foot 12/04/2019 Status post surgical intervention with incision and drainage by Dr. Mora on 12/02/2019 cultures now with normal chalino AFB and fungus negative Plan 12/04/2019 Rocephin 2 g IV every 24 hours CBC CMP sed rate CRP Rehab referral with Dr. Lopez here if possible We will discuss with podiatry I have discussed with hospitalist OR cultures normal chalino negative AFB and fungus Blood cultures negative so far 12/01/2019 Continue Rocephin till further cultures available CBC CMP sed rate CRP Blood cultures x2 half an hour apart He did bleed well even in the wound clinic yesterday at some point will order arterial Dopplers I have discussed with podiatry at length 11/30/2019 Culture the pin site that is bleeding and draining Follow-up CBC Liver function test Rocephin 2 g IV every 24 hours continue till December 18 May need to go up to additional 2 weeks afterDecember 18 which will be January 01 we will decide based on lab results and clinical response If the culture of the pin site shows any additional pathogens may need to readmit for additional IVantibiotics and streamlining treatment Revisit 1 week both I have discussed with podiatry Chief Complaint/Reason for Visit: I am seeing this patient at the request of Dr. Boogie Phan MD. I have reviewed the current hospital record, available laboratory, cardiology and imaging studies as well as available out patient records. History of Present Illness: Admission H&P by Boogie Phan MD on 11/30/2019: Dyllan Huertas is a 59 y.o. male presenting from home with h/o diabetes on disability since 2014 related to a Charcot foot and diabetes developed an ulcer in the beginning of 2018 was being followed by Dr. Robles at the office we have cultures from last year in January with Enterobacter and since then culture with gram-negative bacteria also was seen by Dr. Mora was found to have severe Charcot a corrective surgery was done with placement of an external fixator on 11/20. Today at wound clinic follow up was found to have increased drainage from one of the pin sites, being admitted for continued IV ATB and possible OR/ exploration in am. Exam: Tmax: 99 Urine Output: 2000 Stool: not recorded PACU Vitals 12/04/19 1129 BP: 123/77 Pulse: 77 Resp: 16 Temp: 98.4 F (36.9 C) SpO2: 94% Allergies: no known allergies. Current Facility-Administered Medications: acetaminophen (TYLENOL) tablet 650 mg, 650 mg, Oral, Q4H PRN, Boogie Phan MD albuterol (PROVENTIL) 2.5 mg /3 mL (0.083 %) nebulizer solution 2.5 mg, 2.5 mg, Inhalation, Q2H PRN, Boogie Phan MD aspirin EC tablet 162 mg, 162 mg, Oral, Daily, Boogie Phan MD, 162 mg at 12/04/19 0835 atorvastatin (LIPITOR) tablet 40 mg, 40 mg, Oral, Nightly, Boogie Phan MD, 40 mg at 12/03/19 2104 calcium carbonate (TUMS) chewable tablet 1,000 mg, 1,000 mg, Oral, Daily, Boogie Phan MD, 1,000 mg at 12/04/19 0835 carvediloL (COREG) tablet 12.5 mg, 12.5 mg, Oral, BID, Boogie Phan MD, 12.5 mg at 12/04/19 0835 cefTRIAXone (ROCEPHIN) IVPB 2 g (premix), 2,000 mg, Intravenous, Q24H, Boogie Phan MD, Stopped at 12/03/19 1350 docusate sodium (COLACE) capsule 100 mg, 100 mg, Oral, Daily, Boogie Phan MD, 100 mg at 12/04/19 0835 fenofibrate tablet 160 mg, 160 mg, Oral, Daily with breakfast, Boogie Phan MD, 160 mg at12/04/19 0835 gabapentin (NEURONTIN) capsule 300 mg, 300 mg, Oral, Q8H LESLEY, Boogie Phan MD, 300 mg at 12/04/19 0625 insulin glargine (LANTUS) injection 30 Units, 30 Units, Subcutaneous, BID, Boogie Phan MD, 30 Units at 12/04/19 0832 insulin lispro (HumaLOG) injection 0-15 Units, 0-15 Units, Subcutaneous, at bedtime, Boogie Phan MD, 2 Units at 12/03/19 2243 insulin lispro (HumaLOG) injection 0-30 Units, 0-30 Units, Subcutaneous, TID AC, Boogie Phan MD, 12 Units at 12/04/19 1137 levothyroxine (SYNTHROID, LEVOTHROID) tablet 112 mcg, 112 mcg, Oral, Daily, Boogie Phan MD, 112 mcg at 12/04/19 0624 magnesium oxide (MAG-OX) tablet 400 mg, 400 mg, Oral, Daily, Boogie Phan MD, 400 mg at 12/04/19 0835 melatonin Tab 10 mg, 10 mg, Oral, at bedtime, Boogie Phan MD, 10 mg at 12/03/19 2104 nitroGLYCERIN (NITROSTAT) SL tablet 0.4 mg, 0.4 mg, Sublingual, Q5 Min PRN, Boogie Phan MD ondansetron (ZOFRAN-ODT) disintegrating tablet 4 mg, 4 mg, Oral, Q6H PRN, Boogie Phan MD pneumococcal vaccine (PNU-IMMUNE 23) injection 0.5 mL, 0.5 mL, Intramuscular, Prior To Discharge, Maria Isabel Awad MD tamsulosin (FLOMAX) 24 hr capsule 0.4 mg, 0.4 mg, Oral, After evening meal, Boogie Phan MD, 0.4 mg at 12/03/19 1742 traZODone (DESYREL) tablet 50 mg, 50 mg, Oral, Nightly PRN, Boogie Phan MD PMH/PSH/SH/ reviewed, no change except: Status post surgical intervention by Dr. Mora on 12/02/2019 Review of Systems: All systems were reviewed and negative except: Denies any fever chills no pain in the right leg and foot Medications Reviewed. Chart Reviewed. Exam Findings: Constitutional: HENT: Pupils reactive head: No oral candidiasis Eyes: No icterus Neck: Supple Cardiovascular: Heart S1-S2 2 by systolic murmur present no S3 Murmur Pulmonary/Chest: Clear Abdominal: Soft Musculoskeletal: No calf tenderness on the right leg Neurological: Has diabetic neuropathy with Charcot is able to wiggle the toes Skin postop dressing with Kerlix no drainage noted today no foul odor Schulte: Bard Schulte catheter with clear urine IV: Midline placed in the right arm site looks good other: External fixator in place no drainage noted on the dressing Pin sites without any bleeding Laboratory and Additional Data Reviewed: Current Antibiotics: Rocephin 2 gm IV every 24 Hours Previous Antibiotic: Ancef 2,000 mg IV every 8 Hours Pre/Post Procedure I have personally reviewed the labs and results Test results Laboratory and Additional Data Reviewed: Results from last 7 days Lab Units 12/01/19 0648 11/30/19 1245 11/29/19 0655 SODIUM mmol/L 140 140 142 POTASSIUM mmol/L 5.0 4.9 5.1 CHLORIDE mmol/L 106 105 107 BUN mg/dL 22 24 36* CREATININE mg/dL 0.98 0.94 1.12 GLUCOSE mg/dL 223* 127* 108* CALCIUM mg/dL 9.1 9.3 9.3 Results from last 7 days Lab Units 12/01/19 0635 11/30/19 1245 WBC K/mcL 8.56 8.72 HGB g/dL 11.2* 10.8* HCT % 35.6* 35.4* PLT K/mcL 232 243 Results from last 7 days Lab Units 11/30/19 1245 ALK PHOS U/L 67 BILIRUBIN TOTAL mg/dL 0.3 TOTAL PROTEIN g/dL 6.5 ALTR U/L 56 AST U/L 42 Current Cultures: 12/02/2019 Right Foot Tissue Aerobic Culture: Normal Chalino After 24 Hours. Preliminary. 12/02/2019 Right Foot Tissue AFB Culture: No Acid Fast Bacilli Seen. Preliminary. 12/01/2019 Blood Culture #1: No Growth After 48 Hours. Preliminary. 12/01/2019 Blood Culture #2: No Growth After 48 Hours. Preliminary. 11/30/2019 Right Foot Wound Aerobic Culture: Normal Chalino After 48 Hours. Final. 11/21/2019 Left Leg Wound Aerobic Culture: Normal Chalino After 48 Hours. Final. 11/20/2019 Right Foot Tissue Aerobic Culture: Moderate Growth Enterobacter cloacae complex, S=Youssef Sensitive. Final. 11/20/2019 Right Foot Tissue Anaerobic Culture: No Anaerobic Growth at 2 Days. Final. 11/20/2019 Right Foot Bone Aerobic Culture: Light Growth Enterobacter Cloacae Complex, S=Youssef Sensitive. Final. 11/20/2019 Right Foot Bone Anaerobic Culture: No Anaerobic Growth at 2 Days. Final. Recent Cultures: 05/30/2019 Right Foot Tissue Aerobic Culture: Normal Chalino After 48 Hours. Final. 05/30/2019 Right Foot Tissue Anaerobic Culture: No Anaerobic Growth at 2 Days. Final. 03/23/2019 Right Foot Wound Aerobic Culture: Heavy Growth Raoultella [place], R=Ampicillin, S=Remainder of panel. 03/09/2019 Right Foot Wound Aerobic Culture: Normal Chalino After 48 Hours. Final. 02/09/2019 Right Foot Wound Aerobic Culture: Normal Chalino After 48 Hours. Final. 01/19/2019 Right Toe Two Wound Aerobic Culture: Heavy Growth Enterobacter Cloacae Complex, S=Youssef Sensitive. Final. Radiology: Right Foot X-Ray 12/02/2019 Intraoperative fluoroscopy provided. Severe bony deformity of the foot as described. Please correlate with operative note. Chest X-Ray 11/23/2019 1. Right arm PICC line in place with tip in superior vena cava. 2. No acute pulmonary disease. 3. Cardiomegaly with evidence of prior open heart surgery. 4. No acute osseous abnormality Right Foot X-Ray 11/20/2019 IMPRESSION: Intraoperative fluoroscopy for localization during right foot and ankle reconstruction and fixation. Please see operative report for details. Left Ankle X-Ray Ordered 11/20/2019 Right Foot X-Ray 11/20/2019 FINDINGS: Two views of the right foot were obtained. There are advanced changes of Charcot arthropathy throughout the right midfoot which appears similar compared to prior examination. There are postsurgical changes of resection of the right 2nd toe proximal phalangeal head. IMPRESSION: 1. Advanced changes of Charcot arthropathy throughout the right midfoot which appear unchanged compared to prior examination. Chest AP/PA X-Ray 11/16/2019 1. No acute pulmonary disease. 2. Cardiomegaly, with evidence of prior open heart surgery. 3. Multilevel degenerative changes of the thoracic spine. MR Right Foot 05/19/2019 1. There is a superficial soft tissue ulcer again seen along the plantar aspect of the midfoot, butthere is no evidence of abscess or osteomyelitis in this region. 2. Stable appearance of the sequela of severe neuropathic arthropathy of the midfoot with collapse of the midfoot again seen resulting in a rocker bottom deformity. 3. A moderate amount of diffuse subcutaneous edema along the dorsum of the foot may be due to reactive edema or a cellulitis, but this is nonspecific. Right Foot X-Ray 04/28/2019 1. Soft tissue irregularity involving the plantar aspect of the foot likely representing the reported ulcer. No bony destruction to suggest osteomyelitis. 2. No evidence of radiopaque foreign body. 3. Stable deformity and degenerative changes involving the midfoot. Findings are consistent with Charcot joint. NM White Cell Scan Spot Limited 03/08/2017 FINDINGS: A focal area of intense abnormal white blood cell migration is noted central plantar aspect of the right foot corresponding to the area of the wound demonstrated radiographically. No other focus of white blood cell migration abnormality is evident within the right or left foot. IMPRESSION: Focal area of abnormal white blood cell migration at the plantar aspect central right foot may be at the wound itself or may be involving the bone with associated fracture as demonstrated radiographically. Anatomic detail is insufficient for differentiation between the two. Renal U/S 03/07/2017 IMPRESSION: Severe thickening of the urinary bladder wall. This could be due to outlet obstruction with hypertrophy of the wall. If there is no such history, this should be evaluated with cystoscopy. CVPS: Arterial Doppler: not on file Venous Doppler: not on file 2D Echo 11/23/2019 Moderate LV enlargement with LVH. Global systolic dysfunction with segmental features. LVEF 30% Elevated LV filling pressures RV is dilated with severe RV dysfunction Mild mitral annular calcification, mild thickening of the aortic valve without hemodynamically significant valvular disease There is a atrial level right to left shunt identified with saline contrast with free breathing andValsalva most likely via PFO LVEF unchanged from to previous echo from 2017 Surgeries: Please see above for surgical history Procedure: Right Foot I&D ADJUSTMENT EXTERNAL FIXATOR Date: 12/02/2019 Surgery: Alena Mora DPM Procedure: RIGHT FOOT RECONSTRUCTION WITH APPLICATION OF CIRCULAR STATIC EXTERNAL FIXATION Date: 11/20/2019 Surgeon: Alena Mora DPM Procedure: ARTHROPLASTY 2ND TOE RIGHT FOOT Date: 01/25/2019 Surgeon: Rosa M Robles DPM Pathology: not on file * Man Crews MD - 12/04/2019 11:59 AM EST [facility] Inpatient Follow-up 12/01/2019 Man Crews MD [facility] Patient: Dyllan Huertas Date of : 1960 (59 y.o.) PCP: Rohit Aguilar MD ASSESSMENT/PLAN: Dyllan Huertas 59 y.o. male Principal Problem: Subacute osteomyelitis of right ankle (HCC) Active Problems: 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) Foot ulcer with fat layer exposed, right (HCC) Morbid obesity (HCC) JAYDEN (obstructive sleep apnea) Mixed hyperlipidemia PLAN: Pod#1 s/p debridement rt ankle, drain placed No fever On IV rocephin per ID team. Inadequate glycemic control , will change lantus to 30u bid and ISS 3/2 -- SEEN AND EXAMINED -- DISCUSSED WITH NURSING STAFF -- CLINICALLY STABLE -- S/ DEBRIDEMENT RIGHT ANKLE -- NO FEVER -- NO LEUKOCYTOSIS -- BLOOD CULTURE IS NEGATIVE -- WOUND CULTURE IS NEGATIVE -- PODIATRY IS FOLLOWING -- ROCEPHIN IV DAILY -- DC PLANNING SUBJECTIVE: NO COMPLAINTS AFEBRILE All other systems reviewed and negative other than noted above. OBJECTIVE: Physical Examination: BP 123/77 Pulse 77 Temp 98.4 F (36.9 C) (Oral) Resp 16 Ht 5' 11 Wt 128 kg (282 lb 3 oz) SpO2 94% BMI 39.36 kg/m General Appearance: Alert, well appearing, and in no acute distress. HEENT: Head - Normocephalic, atraumatic. Eyes - ALEKS bilaterally and EOMI. Ears - normal external appearance, hearing intact. Nose - normal, no erythema. Throat - mucous membranes moist, pharynx without lesions. Neck: Supple, trachea midline. Cardiovascular: S1, S2 normal. No murmurs, rubs, clicks or gallops appreciated. No pedal edema. Respiratory: Lungs clear to auscultation, no wheezes, rales or rhonchi heard. Abdomen: Soft, non-tender, normal bowel sounds, non-distended, no masses or organomegaly appreciated. Neurological: Grossly normal motor and sensory exam. No focal deficits. Musculoskeletal: No joint tenderness, deformity or swelling. Skin: Normal coloration and turgor. No rashes. Psych: Alert, oriented x 3. Normal mood and affect. CURRENT MEDICATIONS: aspirin 162 mg Oral Daily atorvastatin 40 mg Oral Nightly calcium carbonate 1,000 mg Oral Daily carvediloL 12.5 mg Oral BID cefTRIAXone 2,000 mg Intravenous Q24H docusate sodium 100 mg Oral Daily fenofibrate 160 mg Oral Daily with breakfast gabapentin 300 mg Oral Q8H LESLEY insulin glargine 30 Units Subcutaneous BID lispro insulin 0-15 Units Subcutaneous at bedtime insulin lispro 0-30 Units Subcutaneous TID AC levothyroxine 112 mcg Oral Daily magnesium oxide 400 mg Oral Daily melatonin 10 mg Oral at bedtime tamsulosin 0.4 mg Oral After evening meal Results/Medications Reviewed 12/04/19 11:59 AM: Results from last 7 days Lab Units 12/02/19 0446 12/01/19 0648 11/30/19 1245 SODIUM mmol/L 137 140 140 POTASSIUM mmol/L 4.7 5.0 4.9 CHLORIDE mmol/L 102 106 105 BUN mg/dL 19 22 24 CREATININE mg/dL 1.06 0.98 0.94 GLUCOSE mg/dL 256* 223* 127* CALCIUM mg/dL 9.2 9.1 9.3 Results from last 7 days Lab Units 12/02/19 0446 12/01/19 0635 11/30/19 1245 WBC K/mcL 9.43 8.56 8.72 HGB g/dL 11.5* 11.2* 10.8* HCT % 36.7* 35.6* 35.4* PLT K/mcL 235 232 243 Results from last 7 days Lab Units 12/02/19 0446 ALK PHOS U/L 82 BILIRUBIN TOTAL mg/dL 0.4 TOTAL PROTEIN g/dL 6.7 ALTR U/L 53 AST U/L 32 CULTURES: Reviewed 11:59 AM IMAGING: Reviewed 11:59 AM * Najma Colindres RN - 12/04/2019 11:46 AM EST Received rehab referral, thank you. Cathy Colindres RN CRRN * Helena Glass LPN - 12/04/2019 10:49 AM EST 12/04/2019 Patient Name: Dyllan Huertas Admit Date: MR #: [id number] : 1960 Physicians: Rohit Aguilar MD (Family); Alena Mora DPM (Referring) Assessment and Plan: Impression Impression Right foot ulcer status post surgical intervention Severe Charcot deformity status post surgical intervention Enterobacter cloaca infection and gram-negative infection see cultures below RaullTela which is a gram-negative Acute osteomyelitis bone culture on 11/20/2019+ for the same pathogen that was present in January 2019is Enterobacter cloaca pansensitive RAJINDER none on chart 11/24/2019 Osteomyelitis as bone culture is positive from 11/20/2019 for Enterobacter cloaca 11/30/2019 New drainage from the pin site Elevated sed rate Elevated CRP Osteomyelitis right foot 12/01/2019 Osteomyelitis right foot Delayed healing of the plantar foot postop wound Cellulitis of the foot Plan 12/01/2019 Continue Rocephin till further cultures available CBC CMP sed rate CRP Blood cultures x2 half an hour apart He did bleed well even in the wound clinic yesterday at some point will order arterial Dopplers I have discussed with podiatry at length 11/30/2019 Culture the pin site that is bleeding and draining Follow-up CBC Liver function test Rocephin 2 g IV every 24 hours continue till December 18 May need to go up to additional 2 weeks afterDecember 18 which will be January 01 we will decide based on lab results and clinical response If the culture of the pin site shows any additional pathogens may need to readmit for additional IVantibiotics and streamlining treatment Revisit 1 week both I have discussed with podiatry Chief Complaint/Reason for Visit: I am seeing this patient at the request of Dr. Boogie Phan MD. I have reviewed the current hospital record, available laboratory, cardiology and imaging studies as well as available out patient records. History of Present Illness: Admission H&P by Boogie Phan MD on 11/30/2019: Dyllan Huertas is a 59 y.o. male presenting from home with h/o diabetes on disability since 2014 related to a Charcot foot and diabetes developed an ulcer in the beginning of 2018 was being followed by Dr. Robles at the office we have cultures from last year in January with Enterobacter and since then culture with gram-negative bacteria also was seen by Dr. Mora was found to have severe Charcot a corrective surgery was done with placement of an external fixator on 11/20. Today at wound clinic follow up was found to have increased drainage from one of the pin sites, being admitted for continued IV ATB and possible OR/ exploration in am. Exam: Tmax: 99 Urine Output: 2000 Stool: not recorded PACU Vitals 12/04/19 0843 BP: (!) 143/73 Pulse: 85 Resp: 16 Temp: 98.1 F (36.7 C) SpO2: 94% Allergies: no known allergies. Current Facility-Administered Medications: acetaminophen (TYLENOL) tablet 650 mg, 650 mg, Oral, Q4H PRN, Boogie Phan MD albuterol (PROVENTIL) 2.5 mg /3 mL (0.083 %) nebulizer solution 2.5 mg, 2.5 mg, Inhalation, Q2H PRN, Boogie Phan MD aspirin EC tablet 162 mg, 162 mg, Oral, Daily, Boogie Phan MD, 162 mg at 12/04/19 0835 atorvastatin (LIPITOR) tablet 40 mg, 40 mg, Oral, Nightly, Boogie Phan MD, 40 mg at 12/03/19 210 calcium carbonate (TUMS) chewable tablet 1,000 mg, 1,000 mg, Oral, Daily, Boogie Phan MD, 1,000 mg at 12/04/19 0835 carvediloL (COREG) tablet 12.5 mg, 12.5 mg, Oral, BID, Boogie Phan MD, 12.5 mg at 12/04/19 0835 cefTRIAXone (ROCEPHIN) IVPB 2 g (premix), 2,000 mg, Intravenous, Q24H, Boogie Phan MD, Stopped at 12/03/19 1350 docusate sodium (COLACE) capsule 100 mg, 100 mg, Oral, Daily, Boogie Phan MD, 100 mg at 12/04/19 0835 fenofibrate tablet 160 mg, 160 mg, Oral, Daily with breakfast, Boogie Phan MD, 160 mg at12/04/19 0835 gabapentin (NEURONTIN) capsule 300 mg, 300 mg, Oral, Q8H LESLEY, Boogie Phan MD, 300 mg at 12/04/19 0625 insulin glargine (LANTUS) injection 30 Units, 30 Units, Subcutaneous, BID, Boogie Phan MD, 30 Units at 12/04/19 0832 insulin lispro (HumaLOG) injection 0-15 Units, 0-15 Units, Subcutaneous, at bedtime, Boogie Phan MD, 2 Units at 12/03/19 2243 insulin lispro (HumaLOG) injection 0-30 Units, 0-30 Units, Subcutaneous, TID AC, Boogie Phan MD, 8 Units at 12/04/19 0830 levothyroxine (SYNTHROID, LEVOTHROID) tablet 112 mcg, 112 mcg, Oral, Daily, Boogie Phan MD, 112 mcg at 12/04/19 0624 magnesium oxide (MAG-OX) tablet 400 mg, 400 mg, Oral, Daily, Boogie Phan MD, 400 mg at 12/04/19 0835 melatonin Tab 10 mg, 10 mg, Oral, at bedtime, Boogie Phan MD, 10 mg at 12/03/19 2104 nitroGLYCERIN (NITROSTAT) SL tablet 0.4 mg, 0.4 mg, Sublingual, Q5 Min PRN, Boogie Phan MD ondansetron (ZOFRAN-ODT) disintegrating tablet 4 mg, 4 mg, Oral, Q6H PRN, Boogie Phan MD pneumococcal vaccine (PNU-IMMUNE 23) injection 0.5 mL, 0.5 mL, Intramuscular, Prior To Discharge, Maria Isabel Awad MD tamsulosin (FLOMAX) 24 hr capsule 0.4 mg, 0.4 mg, Oral, After evening meal, Boogie Phan MD, 0.4 mg at 12/03/19 1742 traZODone (DESYREL) tablet 50 mg, 50 mg, Oral, Nightly PRN, Boogie Phan MD PMH/PSH/SH/ reviewed, no change except: Review of Systems: All systems were reviewed and negative except: Medications Reviewed. Chart Reviewed. Exam Findings: HEENT: Neck: ENT: Chest: CVS: Abdomen: Extremities: Skin: Musculoskeletal: Wound: Neuro: Schulte Catheter: IV Access: Other: Laboratory and Additional Data Reviewed: Current Antibiotics: Rocephin 2 gm IV every 24 Hours Previous Antibiotic: Ancef 2,000 mg IV every 8 Hours Pre/Post Procedure I have personally reviewed the labs and results Test results Laboratory and Additional Data Reviewed: Results from last 7 days Lab Units 12/01/19 0648 11/30/19 1245 11/29/19 0655 SODIUM mmol/L 140 140 142 POTASSIUM mmol/L 5.0 4.9 5.1 CHLORIDE mmol/L 106 105 107 BUN mg/dL 22 24 36* CREATININE mg/dL 0.98 0.94 1.12 GLUCOSE mg/dL 223* 127* 108* CALCIUM mg/dL 9.1 9.3 9.3 Results from last 7 days Lab Units 12/01/19 0635 11/30/19 1245 WBC K/mcL 8.56 8.72 HGB g/dL 11.2* 10.8* HCT % 35.6* 35.4* PLT K/mcL 232 243 Results from last 7 days Lab Units 11/30/19 1245 ALK PHOS U/L 67 BILIRUBIN TOTAL mg/dL 0.3 TOTAL PROTEIN g/dL 6.5 ALTR U/L 56 AST U/L 42 Current Cultures: 12/02/2019 Right Foot Tissue Aerobic Culture: Normal Chalino After 24 Hours. Preliminary. 12/02/2019 Right Foot Tissue AFB Culture: No Acid Fast Bacilli Seen. Preliminary. 12/01/2019 Blood Culture #1: No Growth After 48 Hours. Preliminary. 12/01/2019 Blood Culture #2: No Growth After 48 Hours. Preliminary. 11/30/2019 Right Foot Wound Aerobic Culture: Normal Chalino After 48 Hours. Final. 11/21/2019 Left Leg Wound Aerobic Culture: Normal Chalino After 48 Hours. Final. 11/20/2019 Right Foot Tissue Aerobic Culture: Moderate Growth Enterobacter cloacae complex, S=Youssef Sensitive. Final. 11/20/2019 Right Foot Tissue Anaerobic Culture: No Anaerobic Growth at 2 Days. Final. 11/20/2019 Right Foot Bone Aerobic Culture: Light Growth Enterobacter Cloacae Complex, S=Youssef Sensitive. Final. 11/20/2019 Right Foot Bone Anaerobic Culture: No Anaerobic Growth at 2 Days. Final. Recent Cultures: 05/30/2019 Right Foot Tissue Aerobic Culture: Normal Chalino After 48 Hours. Final. 05/30/2019 Right Foot Tissue Anaerobic Culture: No Anaerobic Growth at 2 Days. Final. 03/23/2019 Right Foot Wound Aerobic Culture: Heavy Growth Raoultella Planticola, R=Ampicillin, S=Remainder of panel. 03/09/2019 Right Foot Wound Aerobic Culture: Normal Chalino After 48 Hours. Final. 02/09/2019 Right Foot Wound Aerobic Culture: Normal Chalino After 48 Hours. Final. 01/19/2019 Right Toe Two Wound Aerobic Culture: Heavy Growth Enterobacter Cloacae Complex, S=Youssef Sensitive. Final. Radiology: Right Foot X-Ray 12/02/2019 Intraoperative fluoroscopy provided. Severe bony deformity of the foot as described. Please correlate with operative note. Chest X-Ray 11/23/2019 1. Right arm PICC line in place with tip in superior vena cava. 2. No acute pulmonary disease. 3. Cardiomegaly with evidence of prior open heart surgery. 4. No acute osseous abnormality Right Foot X-Ray 11/20/2019 IMPRESSION: Intraoperative fluoroscopy for localization during right foot and ankle reconstruction and fixation. Please see operative report for details. Left Ankle X-Ray Ordered 11/20/2019 Right Foot X-Ray 11/20/2019 FINDINGS: Two views of the right foot were obtained. There are advanced changes of Charcot arthropathy throughout the right midfoot which appears similar compared to prior examination. There are postsurgical changes of resection of the right 2nd toe proximal phalangeal head. IMPRESSION: 1. Advanced changes of Charcot arthropathy throughout the right midfoot which appear unchanged compared to prior examination. Chest AP/PA X-Ray 11/16/2019 1. No acute pulmonary disease. 2. Cardiomegaly, with evidence of prior open heart surgery. 3. Multilevel degenerative changes of the thoracic spine. MR Right Foot 05/19/2019 1. There is a superficial soft tissue ulcer again seen along the plantar aspect of the midfoot, butthere is no evidence of abscess or osteomyelitis in this region. 2. Stable appearance of the sequela of severe neuropathic arthropathy of the midfoot with collapse of the midfoot again seen resulting in a rocker bottom deformity. 3. A moderate amount of diffuse subcutaneous edema along the dorsum of the foot may be due to reactive edema or a cellulitis, but this is nonspecific. Right Foot X-Ray 04/28/2019 1. Soft tissue irregularity involving the plantar aspect of the foot likely representing the reported ulcer. No bony destruction to suggest osteomyelitis. 2. No evidence of radiopaque foreign body. 3. Stable deformity and degenerative changes involving the midfoot. Findings are consistent with Charcot joint. NM White Cell Scan Spot Limited 03/08/2017 FINDINGS: A focal area of intense abnormal white blood cell migration is noted central plantar aspect of the right foot corresponding to the area of the wound demonstrated radiographically. No other focus of white blood cell migration abnormality is evident within the right or left foot. IMPRESSION: Focal area of abnormal white blood cell migration at the plantar aspect central right foot may be at the wound itself or may be involving the bone with associated fracture as demonstrated radiographically. Anatomic detail is insufficient for differentiation between the two. Renal U/S 03/07/2017 IMPRESSION: Severe thickening of the urinary bladder wall. This could be due to outlet obstruction with hypertrophy of the wall. If there is no such history, this should be evaluated with cystoscopy. CVPS: Arterial Doppler: not on file Venous Doppler: not on file 2D Echo 11/23/2019 Moderate LV enlargement with LVH. Global systolic dysfunction with segmental features. LVEF 30% Elevated LV filling pressures RV is dilated with severe RV dysfunction Mild mitral annular calcification, mild thickening of the aortic valve without hemodynamically significant valvular disease There is a atrial level right to left shunt identified with saline contrast with free breathing andValsalva most likely via PFO LVEF unchanged from to previous echo from 2017 Surgeries: Please see above for surgical history Procedure: Right Foot I&D ADJUSTMENT EXTERNAL FIXATOR Date: 12/02/2019 Surgery: Alena Mora DPM Procedure: RIGHT FOOT RECONSTRUCTION WITH APPLICATION OF CIRCULAR STATIC EXTERNAL FIXATION Date: 11/20/2019 Surgeon: Alena Mora DPM Procedure in Detail: I saw the patient in the preoperative holding area and the operative site was marked. The patient was then brought to the operating room placed on the table in a supine position. A formal timeout wasperformed indicating the patient's name, date of , site/side and procedure to be performed. All parties were in agreement. A pneumatic ankle tourniquet was placed about the right/left ankle. Following IV sedation, local anesthesia was obtained about the right/left ankle utilizing a 1 1 mixtureof 1% lidocaine plain and 0.25% Marcaine plain. The foot was then scrubbed, prepped and draped in the usual aseptic manner. An Esmarch was then used to accentuate the patient's right/left foot and the tourniquet was inflated Upon completion of the procedure, the incision site was dressed with Xeroform, 4 x 4's, light Kerlix and dry sterile dressing.The tourniquet was then deflated and a prompt hyperemic response was noted to all digits of the right/left foot. An Zechariah bandage was applied to the right/left foot. I was present for the entirety of the surgery. The patient tolerated procedure and anesthesia well and was transferred to the PACU vital signs stable and vascular status intact to the right/left foot. Following a period of postoperative monitoring, the patient will be discharged home with instructions and prescriptions. Procedure: ARTHROPLASTY 2ND TOE RIGHT FOOT Date: 01/25/2019 Surgeon: Rosa M Robles DPM Pathology: not on file * Bhakti Miguel MSW LSW - 12/04/2019 10:45 AM EST DISCHARGE PLAN PROGRESS NOTE Date: 12/04/2019 Time: 10:46 AM Patient Name: Dyllan Huertas Date of : 1960 Sex: Male Pt. Ability to return to [facility] without precert Wednesday. If pt were to return to [facility], he would need precert. Najma VÁZQUEZ in inpatient rehab has received referral and plans for Dr. Lopez to review today. [facility] following. 14:49- Najma VÁZQUEZ in inpatient rehab reported Dr. Lopez plans to consult with other following physicians due to needed documentation. [facility] following. * Alena Mora DPM - 12/03/2019 3:03 PM EST Subjective: Patient is a pleasant 59-year-old male who is POD#1 status post irrigation and debridement with re-closure of right plantar ulceration, and adjustment of external fixator construct. He states that heis doing well. No pedal complaints. No pain. Denies fevers, chills, nausea, vomiting, chest pain, shortness of breath, or any other constitutional symptoms. Objective: Vascular: DP and PT pulses are palpable 2/4. Cap refill time is brisk to distal digits. Skin temperature is warm to warm from proximal tibial tuberosity to distal digits. Edema improved from right foot. Neuro: Gross sensation is intact. Protective sensation is absent. Dermatologic: Dressing to right foot is clean and dry. HV drain intact with 30 cc of serosanguinousdrainage. Musculoskeletal: Patient is able to wiggle digits. Compartments are soft and compressible. No calf pain. Assessment: POD#1 - status post irrigation and debridement with reclosure of right plantar wound and adjustmentof external fixator construct (DOS: 12/01/2019 - Dr. Mora) 2 week status post right midfoot wedge resection and application of external fixator for Charcot reconstruction (Date of surgery 11/20/2019 -Dr. Mora). Partial dehiscence, right plantar foot Plan: Patient was seen and evaluated. Discussed all clinical findings. He is doing very well today Continue IV antibiotics Dressing to remain intact. Do not remove or change. Patient can get up from bed to chair today Okay to be evaluated with occupational therapy and may train with physical therapy as needed Strict NWB to right lower extremity at all times Discussed with patient arranging for a bed commode at home following his rehab period and he is amendable to that. If at all possible, I would like the patient to be admitted to our inpatient rehab to allow me to evaluate the patient at least 3 times per week and perform the appropriate dressing changes with our nursing staff. This is to prevent any additional surgical complications and ensure optimum results with his charcot reconstructive surgery. I will return to evaluate the patient on Wednesday. Please feel free to contact me with any questions or concerns! Alena Mora DPM, MS Podiatric Physician and Surgeon [phone] * Boogie Phan MD - 12/03/2019 11:51 AM EST [facility] Inpatient Follow-up 12/01/2019 Boogie Phan MD [facility] Patient: Dyllan Huertas Date of : 1960 (59 y.o.) PCP: Rohit Aguilar MD ASSESSMENT/PLAN: Dyllan Huertas 59 y.o. male Principal Problem: Subacute osteomyelitis of right ankle (HCC) Active Problems: 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) Foot ulcer with fat layer exposed, right (HCC) Morbid obesity (HCC) JAYDEN (obstructive sleep apnea) Mixed hyperlipidemia PLAN: Pod#1 s/p debridement rt ankle, drain placed No fever On IV rocephin per ID team. Inadequate glycemic control , will change lantus to 30u bid and ISS SUBJECTIVE: No pain No fever All other systems reviewed and negative other than noted above. OBJECTIVE: Physical Examination: BP 127/67 Pulse 77 Temp 97.4 F (36.3 C) (Oral) Resp 16 Ht 5' 11 Wt 128 kg (282 lb 3 oz) SpO2 96% BMI 39.36 kg/m General Appearance: Alert, well appearing, and in no acute distress. HEENT: Head - Normocephalic, atraumatic. Eyes - ALEKS bilaterally and EOMI. Ears - normal external appearance, hearing intact. Nose - normal, no erythema. Throat - mucous membranes moist, pharynx without lesions. Neck: Supple, trachea midline. Cardiovascular: S1, S2 normal. No murmurs, rubs, clicks or gallops appreciated. No pedal edema. Respiratory: Lungs clear to auscultation, no wheezes, rales or rhonchi heard. Abdomen: Soft, non-tender, normal bowel sounds, non-distended, no masses or organomegaly appreciated. Neurological: Grossly normal motor and sensory exam. No focal deficits. Musculoskeletal: No joint tenderness, deformity or swelling. Skin: Normal coloration and turgor. No rashes. Psych: Alert, oriented x 3. Normal mood and affect. CURRENT MEDICATIONS: aspirin 162 mg Oral Daily atorvastatin 40 mg Oral Nightly calcium carbonate 1,000 mg Oral Daily carvediloL 12.5 mg Oral BID cefTRIAXone 2,000 mg Intravenous Q24H docusate sodium 100 mg Oral Daily fenofibrate 160 mg Oral Daily with breakfast gabapentin 300 mg Oral Q8H LESLEY insulin glargine 30 Units Subcutaneous BID lispro insulin 0-15 Units Subcutaneous at bedtime insulin lispro 0-30 Units Subcutaneous TID AC levothyroxine 112 mcg Oral Daily magnesium oxide 400 mg Oral Daily melatonin 10 mg Oral at bedtime tamsulosin 0.4 mg Oral After evening meal Results/Medications Reviewed 12/03/19 11:51 AM: Results from last 7 days Lab Units 12/02/19 0446 12/01/19 0648 11/30/19 1245 SODIUM mmol/L 137 140 140 POTASSIUM mmol/L 4.7 5.0 4.9 CHLORIDE mmol/L 102 106 105 BUN mg/dL 19 22 24 CREATININE mg/dL 1.06 0.98 0.94 GLUCOSE mg/dL 256* 223* 127* CALCIUM mg/dL 9.2 9.1 9.3 Results from last 7 days Lab Units 12/02/19 0446 12/01/19 0635 11/30/19 1245 WBC K/mcL 9.43 8.56 8.72 HGB g/dL 11.5* 11.2* 10.8* HCT % 36.7* 35.6* 35.4* PLT K/mcL 235 232 243 Results from last 7 days Lab Units 12/02/19 0446 ALK PHOS U/L 82 BILIRUBIN TOTAL mg/dL 0.4 TOTAL PROTEIN g/dL 6.7 ALTR U/L 53 AST U/L 32 CULTURES: Reviewed 11:51 AM IMAGING: Reviewed 11:51 AM * Alena Mora DPM - 12/02/2019 6:43 PM EST Patient was seen resting comfortably in bed. He s about to eat dinner. Denies any pain complaints To his right lower extremity. Drain intact to the right foot. Do not change. Do not remove dressing. Will check on a patient in the morning. * Boogie Phan MD - 12/02/2019 11:37 AM EST [facility] Inpatient Follow-up 12/01/2019 Boogie Phan MD [facility] Patient: Dyllan Huertas Date of : 1960 (59 y.o.) PCP: Rohit Aguilar MD ASSESSMENT/PLAN: Dyllan Huertas 59 y.o. male Principal Problem: Subacute osteomyelitis of right ankle (HCC) Active Problems: 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) Foot ulcer with fat layer exposed, right (HCC) Morbid obesity (HCC) JAYDEN (obstructive sleep apnea) Mixed hyperlipidemia PLAN: Surgery cancelled yesterday Plan to OR this morning No fever On IV rocephin per ID team. Improving glycemic control on lantus 50u abd ISS SUBJECTIVE: No pain No fever All other systems reviewed and negative other than noted above. OBJECTIVE: Physical Examination: BP (!) 149/78 Pulse 73 Temp 98.3 F (36.8 C) (Oral) Resp (!) 20 Ht 5' 11 Wt 128 kg (282 lb 3 oz) SpO2 92% BMI 39.36 kg/m General Appearance: Alert, well appearing, and in no acute distress. HEENT: Head - Normocephalic, atraumatic. Eyes - ALEKS bilaterally and EOMI. Ears - normal external appearance, hearing intact. Nose - normal, no erythema. Throat - mucous membranes moist, pharynx without lesions. Neck: Supple, trachea midline. Cardiovascular: S1, S2 normal. No murmurs, rubs, clicks or gallops appreciated. No pedal edema. Respiratory: Lungs clear to auscultation, no wheezes, rales or rhonchi heard. Abdomen: Soft, non-tender, normal bowel sounds, non-distended, no masses or organomegaly appreciated. Neurological: Grossly normal motor and sensory exam. No focal deficits. Musculoskeletal: No joint tenderness, deformity or swelling. Skin: Normal coloration and turgor. No rashes. Psych: Alert, oriented x 3. Normal mood and affect. CURRENT MEDICATIONS: aspirin 162 mg Oral Daily atorvastatin 40 mg Oral Nightly calcium carbonate 1,000 mg Oral Daily carvediloL 12.5 mg Oral BID cefTRIAXone 2,000 mg Intravenous Q24H docusate sodium 100 mg Oral Daily fenofibrate 160 mg Oral Daily with breakfast gabapentin 300 mg Oral Q8H LESLEY insulin glargine 50 Units Subcutaneous Nightly lispro insulin 0-15 Units Subcutaneous at bedtime insulin lispro 0-30 Units Subcutaneous TID AC levothyroxine 112 mcg Oral Daily magnesium oxide 400 mg Oral Daily melatonin 10 mg Oral at bedtime tamsulosin 0.4 mg Oral After evening meal Results/Medications Reviewed 12/02/19 11:37 AM: Results from last 7 days Lab Units 12/02/19 0446 12/01/19 0648 11/30/19 1245 SODIUM mmol/L 137 140 140 POTASSIUM mmol/L 4.7 5.0 4.9 CHLORIDE mmol/L 102 106 105 BUN mg/dL 19 22 24 CREATININE mg/dL 1.06 0.98 0.94 GLUCOSE mg/dL 256* 223* 127* CALCIUM mg/dL 9.2 9.1 9.3 Results from last 7 days Lab Units 12/02/19 0446 12/01/19 0635 11/30/19 1245 WBC K/mcL 9.43 8.56 8.72 HGB g/dL 11.5* 11.2* 10.8* HCT % 36.7* 35.6* 35.4* PLT K/mcL 235 232 243 Results from last 7 days Lab Units 12/02/19 0446 ALK PHOS U/L 82 BILIRUBIN TOTAL mg/dL 0.4 TOTAL PROTEIN g/dL 6.7 ALTR U/L 53 AST U/L 32 CULTURES: Reviewed 11:37 AM IMAGING: Reviewed 11:37 AM * Bhakti Miguel MSW LSW - 12/01/2019 2:05 PM EST DISCHARGE PLAN PROGRESS NOTE Date: 12/01/2019 Time: 2:05 PM Patient Name: Dyllan Huertas Date of : 1960 Sex: Male 14:00- Voicemail received from Nelda at [facility] reporting that they can take pt to return to then through Wednesday, 12/02 with no precert required. She also explained that they would be willing to cover cost for transportation if that is the reason pt is hesitant to return. This social security assessor to update RN on possibility to return and offer information to pt so that he can make a decision. [facility] following. * Boogie Phan MD - 12/01/2019 11:36 AM EST [facility] Inpatient Follow-up 12/01/2019 Boogie Phan MD [facility] Patient: Dyllan Huertas Date of : 1960 (59 y.o.) PCP: Rohit Aguilar MD ASSESSMENT/PLAN: Dyllan Huertas 59 y.o. male Principal Problem: Subacute osteomyelitis of right ankle (HCC) Active Problems: 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) Foot ulcer with fat layer exposed, right (HCC) Morbid obesity (HCC) JAYDEN (obstructive sleep apnea) Mixed hyperlipidemia PLAN: Plan to or this pm No fever On IV rocephin per ID team. SUBJECTIVE: No pain No fever All other systems reviewed and negative other than noted above. OBJECTIVE: Physical Examination: BP (!) 149/78 Pulse 73 Temp 98.3 F (36.8 C) (Oral) Resp (!) 20 Ht 5' 11 Wt 128 kg (282 lb 3 oz) SpO2 92% BMI 39.36 kg/m General Appearance: Alert, well appearing, and in no acute distress. HEENT: Head - Normocephalic, atraumatic. Eyes - ALEKS bilaterally and EOMI. Ears - normal external appearance, hearing intact. Nose - normal, no erythema. Throat - mucous membranes moist, pharynx without lesions. Neck: Supple, trachea midline. Cardiovascular: S1, S2 normal. No murmurs, rubs, clicks or gallops appreciated. No pedal edema. Respiratory: Lungs clear to auscultation, no wheezes, rales or rhonchi heard. Abdomen: Soft, non-tender, normal bowel sounds, non-distended, no masses or organomegaly appreciated. Neurological: Grossly normal motor and sensory exam. No focal deficits. Musculoskeletal: No joint tenderness, deformity or swelling. Skin: Normal coloration and turgor. No rashes. Psych: Alert, oriented x 3. Normal mood and affect. CURRENT MEDICATIONS: aspirin 162 mg Oral Daily atorvastatin 40 mg Oral Nightly calcium carbonate 1,000 mg Oral Daily carvediloL 12.5 mg Oral BID cefTRIAXone 2,000 mg Intravenous Q24H docusate sodium 100 mg Oral Daily fenofibrate 160 mg Oral Daily with breakfast gabapentin 300 mg Oral Q8H LESLEY insulin glargine 50 Units Subcutaneous Nightly lispro insulin 0-15 Units Subcutaneous at bedtime insulin lispro 0-30 Units Subcutaneous TID AC levothyroxine 112 mcg Oral Daily magnesium oxide 400 mg Oral Daily melatonin 10 mg Oral at bedtime tamsulosin 0.4 mg Oral After evening meal Results/Medications Reviewed 12/02/19 11:36 AM: Results from last 7 days Lab Units 12/02/19 0446 12/01/19 0648 11/30/19 1245 SODIUM mmol/L 137 140 140 POTASSIUM mmol/L 4.7 5.0 4.9 CHLORIDE mmol/L 102 106 105 BUN mg/dL 19 22 24 CREATININE mg/dL 1.06 0.98 0.94 GLUCOSE mg/dL 256* 223* 127* CALCIUM mg/dL 9.2 9.1 9.3 Results from last 7 days Lab Units 12/02/19 0446 12/01/19 0635 11/30/19 1245 WBC K/mcL 9.43 8.56 8.72 HGB g/dL 11.5* 11.2* 10.8* HCT % 36.7* 35.6* 35.4* PLT K/mcL 235 232 243 Results from last 7 days Lab Units 12/02/19 0446 ALK PHOS U/L 82 BILIRUBIN TOTAL mg/dL 0.4 TOTAL PROTEIN g/dL 6.7 ALTR U/L 53 AST U/L 32 CULTURES: Reviewed 11:36 AM IMAGING: Reviewed 11:36 AM * Maria Isabel Awad MD - 12/01/2019 9:12 AM EST CONSULT NOTE 12/01/2019 Patient Name: Dyllan Huertas Admit Date: MR #: [id number] : 1960 Physicians: Rohit Aguilar MD (Family); Alena Mora DPM (Referring) Assessment and Plan: Impression Impression Right foot ulcer status post surgical intervention Severe Charcot deformity status post surgical intervention Enterobacter cloaca infection and gram-negative infection see cultures below RaullTela which is a gram-negative Acute osteomyelitis bone culture on 11/20/2019+ for the same pathogen that was present in January 2019is Enterobacter cloaca pansensitive RAJINDER none on chart 11/24/2019 Osteomyelitis as bone culture is positive from 11/20/2019 for Enterobacter cloaca 11/30/2019 New drainage from the pin site Elevated sed rate Elevated CRP Osteomyelitis right foot 12/01/2019 Osteomyelitis right foot Delayed healing of the plantar foot postop wound Cellulitis of the foot Plan 12/01/2019 Continue Rocephin till further cultures available CBC CMP sed rate CRP Blood cultures x2 half an hour apart He did bleed well even in the wound clinic yesterday at some point will order arterial Dopplers I have discussed with podiatry at length 11/30/2019 Culture the pin site that is bleeding and draining Follow-up CBC Liver function test Rocephin 2 g IV every 24 hours continue till December 18 May need to go up to additional 2 weeks afterMar which will be January 01 we will decide based on lab results and clinical response If the culture of the pin site shows any additional pathogens may need to readmit for additional IVantibiotics and streamlining treatment Revisit 1 week both I have discussed with podiatry Chief Complaint/Reason for Visit: I am seeing this patient at the request of Dr. Boogie Phan MD. I have reviewed the current hospital record, available laboratory, cardiology and imaging studies as well as available out patient records. History of Present Illness: Admission H&P by Boogie Phan MD on 11/30/2019: Dyllan Huertas is a 59 y.o. male presenting from home with h/o diabetes on disability since 2014 related to a Charcot foot and diabetes developed an ulcer in the beginning of 2018 was being followed by Dr. Robles at the office we have cultures from last year in January with Enterobacter and since then culture with gram-negative bacteria also was seen by Dr. Mora was found to have severe Charcot a corrective surgery was done with placement of an external fixator on 11/20. Today at wound clinic follow up was found to have increased drainage from one of the pin sites, being admitted for continued IV ATB and possible OR/ exploration in am. Admission H&P by Nancy Cueto CNP on 11/20/2019: Dyllan Huertas is a 59 y.o. y/o male presenting from OR with complaint of right foot wound. Patient was taken to surgery today for a right foot reconstruction with application of circular static external fixation. Patient has a chronic nonhealing ulceration on the plantar aspect of his right foot secondary to Charcot neuropathy osseous prominence. Patient has noted the wound for several months. The ulceration site failed to heal after several serial wound care debridement and management performance. No other pedal complaints. Patient does however have blisters to the left lower extremity which are weeping, mild redness to the left lower extremity. Patient deniesany fever, chills, nausea, vomiting, constipation, diarrhea, chest pain, palpitations, shortness ofbreath, urinary urgency or frequency. 11/23/2019 Elderly white male with diabetes on disability since 2014 related to a Charcot foot and diabetes developed an ulcer in the beginning of 2018 was being followed by Dr. Robles at the office we have cultures from last year in January with Enterobacter and since then culture with gram-negative bacteria also was seen by Dr. Mora was found to have severe Charcot a corrective surgery was done with placement of an external fixator and infectious disease consult regarding further with antibiotic management his MRI in mid 2018 did not show osteo-no current MRI available With positive cultures then and now same bacteria we will need to treat for persistent infection with at least 4 weeks of IV antibiotic Allergies no known allergies to antibiotic Personal history single does not smoke to the regular alcohol does not use any street drugs Family to nobody with boils his sister lives next to him can assist with care if needed Pets none Is known to have insulin-dependent diabetes He has plate and screws in the wrist and left toe Allergy Information: I have reviewed the patient's allergies. Patient has no known allergies. H Current Scheduled Meds: aspirin 162 mg Oral Daily atorvastatin 40 mg Oral Nightly calcium carbonate 1,000 mg Oral Daily carvediloL 12.5 mg Oral BID cefTRIAXone 2,000 mg Intravenous Q24H docusate sodium 100 mg Oral Daily fenofibrate 160 mg Oral Daily with breakfast gabapentin 300 mg Oral Q8H LESLEY insulin glargine 50 Units Subcutaneous Nightly lispro insulin 0-15 Units Subcutaneous at bedtime insulin lispro 0-30 Units Subcutaneous TID AC levothyroxine 112 mcg Oral Daily magnesium oxide 400 mg Oral Daily melatonin 10 mg Oral at bedtime tamsulosin 0.4 mg Oral After evening meal PMH/PSH/SH/FH reviewed, no change except: He is in the hospital on IV Rocephin antibiotics will be adjusted once we have cultures and OR findings 12/01/2019 adjustment of the pain and revision of the plantar foot incision to be done today by Dr. Mora Review of Systems: All systems were reviewed and negative except: No fevers chills nausea vomiting diarrhea denies any pain in the foot Medications Reviewed. Chart Reviewed Physical Examination: Vital Signs: Tmax: 98.8 Urine Output: 4000 Stool: not recorded BP (!) 162/82 Pulse 69 Temp 98.3 F (36.8 C) (Oral) Resp (!) 20 Ht 5' 11 Wt 128 kg (282 lb 3 oz) SpO2 93% BMI 39.36 kg/m Exam Findings: Constitutional: HENT: Pupils reactive head: No oral candidiasis Eyes: No icterus Neck: Supple Cardiovascular: Heart S1-S2 2 by systolic murmur present no S3 Murmur Pulmonary/Chest: Clear Abdominal: Soft Musculoskeletal: No calf tenderness on the right leg Neurological: Has diabetic neuropathy with Charcot is able to wiggle the toes Skin: Right foot wound was moist in the wound clinic is going to be revised today in the OR also wound: Pictures from wound care yesterday are in my note from yesterday The plantar wound had some purulence culture was done yesterday Schulte: Bard Schulte catheter with clear urine IV: Midline placed in the right arm site looks good other: External fixator in place no drainage noted on the dressing Multiple pin sites present no active bleeding today I have personally reviewed the labs and results Test results Laboratory and Additional Data Reviewed: Current Antibiotics: Rocephin 2 gm IV every 24 Hours Previous Antibiotic: Ancef 2,000 mg IV every 8 Hours Pre/Post Procedure Results from last 7 days Lab Units 12/01/19 0648 11/30/19 1245 11/29/19 0655 SODIUM mmol/L 140 140 142 POTASSIUM mmol/L 5.0 4.9 5.1 CHLORIDE mmol/L 106 105 107 BUN mg/dL 22 24 36* CREATININE mg/dL 0.98 0.94 1.12 GLUCOSE mg/dL 223* 127* 108* CALCIUM mg/dL 9.1 9.3 9.3 Results from last 7 days Lab Units 12/01/19 0635 11/30/19 1245 WBC K/mcL 8.56 8.72 HGB g/dL 11.2* 10.8* HCT % 35.6* 35.4* PLT K/mcL 232 243 Results from last 7 days Lab Units 11/30/19 1245 ALK PHOS U/L 67 BILIRUBIN TOTAL mg/dL 0.3 TOTAL PROTEIN g/dL 6.5 ALTR U/L 56 AST U/L 42 Current Cultures: 11/30/2019 Right Foot Wound Aerobic Culture: Few WBC. Rare Squamous Epithelial Cells. Few Squamous Epithelial Cells. Few Gram Positive Cocci. Preliminary. 11/21/2019 Left Leg Wound Aerobic Culture: Normal Chalino After 24 Hours. Final. 11/20/2019 Right Foot Tissue Aerobic Culture: Moderate Growth Enterobacter cloacae complex, S=Youssef Sensitive. Final. 11/20/2019 Right Foot Tissue Anaerobic Culture: No Anaerobic Growth at 2 Days. Final. 11/20/2019 Right Foot Bone Aerobic Culture: Light Growth Enterobacter Cloacae Complex, S=Youssef Sensitive. Final. 11/20/2019 Right Foot Bone Anaerobic Culture: No Anaerobic Growth at 2 Days. Final. Recent Cultures: 05/30/2019 Right Foot Tissue Aerobic Culture: Normal Chalino After 48 Hours. Final. 05/30/2019 Right Foot Tissue Anaerobic Culture: No Anaerobic Growth at 2 Days. Final. 03/23/2019 Right Foot Wound Aerobic Culture: Heavy Growth Raoultella Pl[place], R=Ampicillin, S=Remainder of panel. 03/09/2019 Right Foot Wound Aerobic Culture: Normal Chalino After 48 Hours. Final. 02/09/2019 Right Foot Wound Aerobic Culture: Normal Chalino After 48 Hours. Final. 01/19/2019 Right Toe Two Wound Aerobic Culture: Heavy Growth Enterobacter Cloacae Complex, S=Youssef Sensitive. Final. Radiology: Chest X-Ray 11/23/2019 1. Right arm PICC line in place with tip in superior vena cava. 2. No acute pulmonary disease. 3. Cardiomegaly with evidence of prior open heart surgery. 4. No acute osseous abnormality Right Foot X-Ray 11/20/2019 IMPRESSION: Intraoperative fluoroscopy for localization during right foot and ankle reconstruction and fixation. Please see operative report for details. Left Ankle X-Ray Ordered 11/20/2019 Right Foot X-Ray 11/20/2019 FINDINGS: Two views of the right foot were obtained. There are advanced changes of Charcot arthropathy throughout the right midfoot which appears similar compared to prior examination. There are postsurgical changes of resection of the right 2nd toe proximal phalangeal head. IMPRESSION: 1. Advanced changes of Charcot arthropathy throughout the right midfoot which appear unchanged compared to prior examination. Chest AP/PA X-Ray 11/16/2019 1. No acute pulmonary disease. 2. Cardiomegaly, with evidence of prior open heart surgery. 3. Multilevel degenerative changes of the thoracic spine. MR Right Foot 05/19/2019 1. There is a superficial soft tissue ulcer again seen along the plantar aspect of the midfoot, butthere is no evidence of abscess or osteomyelitis in this region. 2. Stable appearance of the sequela of severe neuropathic arthropathy of the midfoot with collapse of the midfoot again seen resulting in a rocker bottom deformity. 3. A moderate amount of diffuse subcutaneous edema along the dorsum of the foot may be due to reactive edema or a cellulitis, but this is nonspecific. Right Foot X-Ray 04/28/2019 1. Soft tissue irregularity involving the plantar aspect of the foot likely representing the reported ulcer. No bony destruction to suggest osteomyelitis. 2. No evidence of radiopaque foreign body. 3. Stable deformity and degenerative changes involving the midfoot. Findings are consistent with Charcot joint. NM White Cell Scan Spot Limited 03/08/2017 FINDINGS: A focal area of intense abnormal white blood cell migration is noted central plantar aspect of the right foot corresponding to the area of the wound demonstrated radiographically. No other focus of white blood cell migration abnormality is evident within the right or left foot. IMPRESSION: Focal area of abnormal white blood cell migration at the plantar aspect central right foot may be at the wound itself or may be involving the bone with associated fracture as demonstrated radiographically. Anatomic detail is insufficient for differentiation between the two. Renal U/S 03/07/2017 IMPRESSION: Severe thickening of the urinary bladder wall. This could be due to outlet obstruction with hypertrophy of the wall. If there is no such history, this should be evaluated with cystoscopy. CVPS: Arterial Doppler: not on file Venous Doppler: not on file 2D Echo 11/23/2019 Moderate LV enlargement with LVH. Global systolic dysfunction with segmental features. LVEF 30% Elevated LV filling pressures RV is dilated with severe RV dysfunction Mild mitral annular calcification, mild thickening of the aortic valve without hemodynamically significant valvular disease There is a atrial level right to left shunt identified with saline contrast with free breathing andValsalva most likely via PFO LVEF unchanged from to previous echo from 2017 Surgeries: Please see above for surgical history Procedure: POSSIBLE ADJUSTMENT EXTERNAL FIXATOR Date: 12/01/2019 Surgery: Alena Mora DPM Procedure: RIGHT FOOT RECONSTRUCTION WITH APPLICATION OF CIRCULAR STATIC EXTERNAL FIXATION Date: 11/20/2019 Surgeon: Alena Mora DPM Procedure: ARTHROPLASTY 2ND TOE RIGHT FOOT Date: 01/25/2019 Surgeon: Rosa M Robles DPM Pathology: not on file * Helena Glass LPN - 12/01/2019 8:18 AM EST CONSULT NOTE 12/01/2019 Patient Name: Dyllan Huertas Admit Date: MR #: [id number] : 1960 Physicians: Rohit Aguilar MD (Family); Alena Mora DPM (Referring) Assessment and Plan: Impression Right foot ulcer Severe Charcot deformity status post surgical intervention Enterobacter cloaca infection and gram-negative infection see cultures below RaullTela which is a gram-negative Acute osteomyelitis bone culture on 11/20/2019+ for the same pathogen that was present in January 2019is Enterobacter cloaca pansensitive RAJINDER none on chart 11/24/2019 Osteomyelitis as bone culture is positive from 11/20/2019 Plan PICC line placement Rocephin 2 g IV every 24 hours last dose will be December 18 which is 4 weeks total CBC CMP sed rate CRP as baseline and every week on Mondays Send results to Dr. Andrey Awad Will follow patient in the wound clinic with Dr. Mora on I have discussed with the patient as well as Dr. Mora Local care per Dr. Mora Follow-up every week on with myself and Dr. Mora at 8 AM May need to consider longer antibiotics including 2 additional weeks of IV or prolonged p.o. antibiotics for 2 additional months to complete 3 months of treatment I have discussed the patient as well as Dr. Mora Orders have been written given to perinatal social worker Will get a baseline chest x-ray and 2D echo in case we need to consider HBO treatment in the future Chest x-ray no infiltrate 2D echo with ejection fraction of 30% Chief Complaint/Reason for Visit: I am seeing this patient at the request of Dr. Boogie Phan MD. I have reviewed the current hospital record, available laboratory, cardiology and imaging studies as well as available out patient records. History of Present Illness: Admission H&P by Boogie Phan MD on 11/30/2019: Dyllan Huertas is a 59 y.o. male presenting from home with h/o diabetes on disability since 2014 related to a Charcot foot and diabetes developed an ulcer in the beginning of 2019 was being followed by Dr. Robles at the office we have cultures from last year in January with Enterobacter and since then culture with gram-negative bacteria also was seen by Dr. Mora was found to have severe Charcot a corrective surgery was done with placement of an external fixator on 11/20. Today at wound clinic follow up was found to have increased drainage from one of the pin sites, being admitted for continued IV ATB and possible OR/ exploration in am. Admission H&P by Nancy Cueto CNP on 11/20/2019: Dyllan Huertas is a 59 y.o. y/o male presenting from OR with complaint of right foot wound. Patient was taken to surgery today for a right foot reconstruction with application of circular static external fixation. Patient has a chronic nonhealing ulceration on the plantar aspect of his right foot secondary to Charcot neuropathy osseous prominence. Patient has noted the wound for several months. The ulceration site failed to heal after several serial wound care debridement and management performance. No other pedal complaints. Patient does however have blisters to the left lower extremity which are weeping, mild redness to the left lower extremity. Patient deniesany fever, chills, nausea, vomiting, constipation, diarrhea, chest pain, palpitations, shortness ofbreath, urinary urgency or frequency. 11/23/2019 Elderly white male with diabetes on disability since 2014 related to a Charcot foot and diabetes developed an ulcer in the beginning of 2018 was being followed by Dr. Roblse at the office we have cultures from last year in January with Enterobacter and since then culture with gram-negative bacteria also was seen by Dr. Mora was found to have severe Charcot a corrective surgery was done with placement of an external fixator and infectious disease consult regarding further with antibiotic management his MRI in mid 2018 did not show osteo-no current MRI available With positive cultures then and now same bacteria we will need to treat for persistent infection with at least 4 weeks of IV antibiotic Allergies no known allergies to antibiotic Personal history single does not smoke to the regular alcohol does not use any street drugs Family to nobody with boils his sister lives next to him can assist with care if needed Pets none Is known to have insulin-dependent diabetes He has plate and screws in the wrist and left toe History: Past Medical History: Diagnosis Date Coronary artery disease Diabetes mellitus, type 2 (HCC) Hyperlipidemia Hypertension Hypothyroidism Peripheral neuropathy Sleep apnea, obstructive does not use CPAP Past Surgical History: Procedure Laterality Date APPENDECTOMY ARTHROPLASTY TOE Right 01/25/2019 Procedure: ARTHROPLASTY 2ND TOE RIGHT FOOT; Surgeon: Rosa M Robles DPM; Location: [facility] [place]; Service: Podiatry CARDIAC SURGERY 2017 CABG tripe bypass CYST REMOVED FROM CHEST N/A METAL IN LEFT LEFT WRIST AND LEFT 5TH TOE Left ORTHOPEDIC SURGERY RECONSTRUCTION FOOT CHARCOT Right 11/20/2019 Procedure: RIGHT FOOT RECONSTRUCTION WITH APPLICATION OF CIRCULAR STATIC EXTERNAL FIXATION; Surgeon: Alena Mora DPM; Location: [facility] OR; Service: Podiatry RT FOOT SURGERY Right SHARMILA JEONG N/A Family History Problem Relation Age of Onset Heart disease Mother Heart disease Father Heart disease Brother Social History Socioeconomic History Marital status: Single Spouse name: Not on file Number of children: Not on file Years of education: Not on file Highest education level: Not on file Occupational History Not on file Social Needs Financial resource strain: Not on file Food insecurity Worry: Not on file Inability: Not on file Transportation needs Medical: Not on file Non-medical: Not on file Tobacco Use Smoking status: Never Smoker Smokeless tobacco: Never Used Substance and Sexual Activity Alcohol use: Yes Comment: occassionally Drug use: Never Sexual activity: Not Currently Lifestyle Physical activity Days per week: Not on file Minutes per session: Not on file Stress: Not on file Relationships Social connections Talks on phone: Not on file Gets together: Not on file Attends scientologist service: Not on file Active member of club or organization: Not on file Attends meetings of clubs or organizations: Not on file Relationship status: Not on file Other Topics Concern Not on file Social History Narrative Not on file Allergy Information: I have reviewed the patient's allergies. Patient has no known allergies. Home Medications: Prior to Admission medications Medication Sig Start Date End Date Taking? Authorizing Provider aspirin 81 MG EC tablet Take 2 (two) tablets (162 mg total) by mouth daily Start: 11/25/19. Lissy Palmer MD calcium carbonate 400 mg Chew Chew and Swallow 1,000 mg daily . Historical Provider, carvediloL (COREG) 6.25 MG tablet Take 2 (two) tablets (12.5 mg total) by mouth every 12 (twelve) hours . 11/24/19 12/24/19 Lissy Palmer MD cefTRIAXone (ROCEPHIN) 2 gram/50 mL IVPB Infuse 2,000 mg into a venous catheter daily . Historical Provider, docusate sodium (COLACE) 100 MG capsule Take 100 mg by mouth daily . Historical Provider, FENOFIBRATE MICRONIZED ORAL Take 160 mg by mouth daily . 01/26/15 Historical ProviderMD finasteride (PROSCAR) 5 mg tablet Take 2.5 mg by mouth every night at bedtime Wednesday,WED,WED . 04/16/15 Historical Provider, gabapentin (NEURONTIN) 300 MG capsule gabapentin GABAPENTIN 300 MG CAPS One tablet by mouth daily GABAPENTIN [phone] Sebastián Dailey MD 06-15-2017 [facility] ([id number]) 06/15/17 Historical Provider, insulin glargine (LANTUS) 100 unit/mL (3 mL) InPn Inject 50 Units under the skin nightly . Historical Provider, levothyroxine (SYNTHROID, LEVOTHROID) 112 MCG tablet once daily . 01/12/19 Historical Provider, magnesium oxide (MAG-OX) 400 mg (241.3 mg magnesium) tablet Take 400 mg by mouth daily . HistoricalProviderMD melatonin 5 mg Tab Take 10 mg by mouth daily . Historical Provider, metFORMIN (GLUCOPHAGE-XR) 500 MG 24 hr tablet 1,000 mg 2 (two) times a day . 10/21/18 Historical Provider, multivitamin (THERAGRAN) per tablet Take 1 tablet by mouth daily . Historical Provider, NovoLIN R Regular U-100 Insuln 100 unit/mL injection INJECT 50 UNITS SUBCUTANEOUSLY 3 TIMES DAILY WITH MEALS WITH ADDITIONAL PER SLIDING SCALE 10/20/19 Historical Provider, ondansetron (ZOFRAN) 4 MG tablet Take 4 mg by mouth every 8 (eight) hours as needed for nausea . Historical Provider, rosuvastatin (CRESTOR) 20 MG tablet 20 mg daily . 09/17/16 Historical Provider, tamsulosin (FLOMAX) 0.4 mg capsule tamsulosin TAMSULOSIN HCL 0.4 MG CAPS One tablet by mouth daily TAMSULOSIN HCL [phone] Sebastián Dailey MD 06-15-2017 [facility] ([id number]) 06/15/17 Historical Provider, Current Scheduled Meds: aspirin 162 mg Oral Daily atorvastatin 40 mg Oral Nightly calcium carbonate 1,000 mg Oral Daily carvediloL 12.5 mg Oral BID cefTRIAXone 2,000 mg Intravenous Q24H docusate sodium 100 mg Oral Daily fenofibrate 160 mg Oral Daily with breakfast gabapentin 300 mg Oral Q8H LESLEY insulin glargine 50 Units Subcutaneous Nightly lispro insulin 0-15 Units Subcutaneous at bedtime insulin lispro 0-30 Units Subcutaneous TID AC levothyroxine 112 mcg Oral Daily magnesium oxide 400 mg Oral Daily melatonin 10 mg Oral at bedtime tamsulosin 0.4 mg Oral After evening meal Review of Systems: The following system(s) were reviewed and pertinent findings noted: Constitutional:No fever, no weight change, no night sweats Eyes:No visual changes ENT:No sore throat, no ear pain CV:No chest pain. No dypnea with exertion, no palpitations, no orthopnea. No ankle swelling and no symptoms of intermittent claudication. Resp:No cough, sputum, wheeze or hemoptysis. No pleurisy. GI:No abdominal pain.No nausea, vomiting or diarrhea. No rectal bleeding. :No frequency, urgency, dysuria or hematuria. Neuro:No headache, dizziness. No focal weakness or paresthesias. Integumentary:No skin rash MuscSkel:No joint pain, no swelling, no synovitis or joint effusion. Wound: Heme/lymphatic:No apparent lymphadenopathy. Psych:N/A Physical Examination: Vital Signs: Tmax: 98.8 Urine Output: 4000 Stool: not recorded BP (!) 162/82 Pulse 69 Temp 98.3 F (36.8 C) (Oral) Resp (!) 20 Ht 5' 11 Wt 128 kg (282 lb 3 oz) SpO2 93% BMI 39.36 kg/m Exam Findings: Constitutional: HENT: Head: Eyes: Neck: Cardiovascular: Murmur Pulmonary/Chest: Abdominal: Musculoskeletal: Neurological: Skin: Wound: Wound (Outpatient Only) 03/31/19 Foot Anterior;Right;Plantar (Active) Wound Image 11/30/2019 9:00 AM Wound Length (cm) 5.5 cm 11/30/2019 9:00 AM Wound Width (cm) 1.4 cm 11/30/2019 9:00 AM Wound Depth (cm) 0.2 cm 11/30/2019 9:00 AM Wound Surface Area (cm^2) 7.7 cm^2 11/30/2019 9:00 AM Wound Volume (cm^3) 1.54 cm^3 11/30/2019 9:00 AM Area % Change [id number] 11/30/2019 9:00 AM Volume % Change 0 11/30/2019 9:00 AM Tunneling Maximum Distance (cm) 0 cm 11/30/2019 9:00 AM Tunneling Position (o'clock) 0 11/30/2019 9:00 AM Undermining Maximum Distance (cm) 1 0 cm 11/30/2019 9:00 AM Undermining Starting Position (o'clock) 1 0 11/30/2019 9:00 AM Undermining Ending Position (o'clock) 1 0 11/30/2019 9:00 AM Wound Encounter Subsequent 11/30/2019 9:00 AM Wound Progress Improving 11/30/2019 9:00 AM Non-staged Wound Description Partial thickness 11/30/2019 9:00 AM Drainage Amount Moderate 11/30/2019 9:00 AM Drainage Description Fresh blood 11/30/2019 9:00 AM Odor None 11/30/2019 9:00 AM Adherent Yellow Slough % None 11/30/2019 9:00 AM Moist Yellow Slough % None 11/30/2019 9:00 AM Dry Black Eschar % None 11/30/2019 9:00 AM Moist Black Eschar % None 11/30/2019 9:00 AM Epithelialization % 26-50% 11/30/2019 9:00 AM Granulation % 26-50%;Bright red 11/30/2019 9:00 AM Exposed Structure None 11/30/2019 9:00 AM Wound Bed Characteristics Clean;Intact;Granulation tissue;Swelling 11/30/2019 9:00 AM Wound Closure Sutures 11/30/2019 9:00 AM Angeli-wound Assessment Warm;Intact;Edema;Moist 11/30/2019 9:00 AM Hemostasis Not applicable 11/30/2019 9:00 AM Primary Dressing Impregnated gauze 11/30/2019 9:00 AM Secondary Dressing Gauze pad;Gauze roll;Dry gauze dressing 11/30/2019 9:00 AM Compression Dressing Zechariah wrap 11/30/2019 9:00 AM Schulte: IV: Other: Current Antibiotics: Rocephin 2 gm IV every 24 Hours Previous Antibiotic: Ancef 2,000 mg IV every 8 Hours Pre/Post Procedure I have personally reviewed the labs and results Test results Laboratory and Additional Data Reviewed: Results from last 7 days Lab Units 12/01/19 0648 11/30/19 1245 11/29/19 0655 SODIUM mmol/L 140 140 142 POTASSIUM mmol/L 5.0 4.9 5.1 CHLORIDE mmol/L 106 105 107 BUN mg/dL 22 24 36* CREATININE mg/dL 0.98 0.94 1.12 GLUCOSE mg/dL 223* 127* 108* CALCIUM mg/dL 9.1 9.3 9.3 Results from last 7 days Lab Units 12/01/19 0635 11/30/19 1245 WBC K/mcL 8.56 8.72 HGB g/dL 11.2* 10.8* HCT % 35.6* 35.4* PLT K/mcL 232 243 Results from last 7 days Lab Units 11/30/19 1245 ALK PHOS U/L 67 BILIRUBIN TOTAL mg/dL 0.3 TOTAL PROTEIN g/dL 6.5 ALTR U/L 56 AST U/L 42 Current Cultures: 11/30/2019 Right Foot Wound Aerobic Culture: Few WBC. Rare Squamous Epithelial Cells. Few Squamous Epithelial Cells. Few Gram Positive Cocci. Preliminary. 11/21/2019 Left Leg Wound Aerobic Culture: Normal Chalino After 24 Hours. Final. 11/20/2019 Right Foot Tissue Aerobic Culture: Moderate Growth Enterobacter cloacae complex, S=Youssef Sensitive. Final. 11/20/2019 Right Foot Tissue Anaerobic Culture: No Anaerobic Growth at 2 Days. Final. 11/20/2019 Right Foot Bone Aerobic Culture: Light Growth Enterobacter Cloacae Complex, S=Youssef Sensitive. Final. 11/20/2019 Right Foot Bone Anaerobic Culture: No Anaerobic Growth at 2 Days. Final. Recent Cultures: 05/30/2019 Right Foot Tissue Aerobic Culture: Normal Chalino After 48 Hours. Final. 05/30/2019 Right Foot Tissue Anaerobic Culture: No Anaerobic Growth at 2 Days. Final. 03/23/2019 Right Foot Wound Aerobic Culture: Heavy Growth Raoultella Pl[place]ola, R=Ampicillin, S=Remainder of panel. 03/09/2019 Right Foot Wound Aerobic Culture: Normal Chalino After 48 Hours. Final. 02/09/2019 Right Foot Wound Aerobic Culture: Normal Chalino After 48 Hours. Final. 01/19/2019 Right Toe Two Wound Aerobic Culture: Heavy Growth Enterobacter Cloacae Complex, S=Youssef Sensitive. Final. Radiology: Chest X-Ray 11/23/2019 1. Right arm PICC line in place with tip in superior vena cava. 2. No acute pulmonary disease. 3. Cardiomegaly with evidence of prior open heart surgery. 4. No acute osseous abnormality Right Foot X-Ray 11/20/2019 IMPRESSION: Intraoperative fluoroscopy for localization during right foot and ankle reconstruction and fixation. Please see operative report for details. Left Ankle X-Ray Ordered 11/20/2019 Right Foot X-Ray 11/20/2019 FINDINGS: Two views of the right foot were obtained. There are advanced changes of Charcot arthropathy throughout the right midfoot which appears similar compared to prior examination. There are postsurgical changes of resection of the right 2nd toe proximal phalangeal head. IMPRESSION: 1. Advanced changes of Charcot arthropathy throughout the right midfoot which appear unchanged compared to prior examination. Chest AP/PA X-Ray 11/16/2019 1. No acute pulmonary disease. 2. Cardiomegaly, with evidence of prior open heart surgery. 3. Multilevel degenerative changes of the thoracic spine. MR Right Foot 05/19/2019 1. There is a superficial soft tissue ulcer again seen along the plantar aspect of the midfoot, butthere is no evidence of abscess or osteomyelitis in this region. 2. Stable appearance of the sequela of severe neuropathic arthropathy of the midfoot with collapse of the midfoot again seen resulting in a rocker bottom deformity. 3. A moderate amount of diffuse subcutaneous edema along the dorsum of the foot may be due to reactive edema or a cellulitis, but this is nonspecific. Right Foot X-Ray 04/28/2019 1. Soft tissue irregularity involving the plantar aspect of the foot likely representing the reported ulcer. No bony destruction to suggest osteomyelitis. 2. No evidence of radiopaque foreign body. 3. Stable deformity and degenerative changes involving the midfoot. Findings are consistent with Charcot joint. NM White Cell Scan Spot Limited 03/08/2017 FINDINGS: A focal area of intense abnormal white blood cell migration is noted central plantar aspect of the right foot corresponding to the area of the wound demonstrated radiographically. No other focus of white blood cell migration abnormality is evident within the right or left foot. IMPRESSION: Focal area of abnormal white blood cell migration at the plantar aspect central right foot may be at the wound itself or may be involving the bone with associated fracture as demonstrated radiographically. Anatomic detail is insufficient for differentiation between the two. Renal U/S 03/07/2017 IMPRESSION: Severe thickening of the urinary bladder wall. This could be due to outlet obstruction with hypertrophy of the wall. If there is no such history, this should be evaluated with cystoscopy. CVPS: Arterial Doppler: not on file Venous Doppler: not on file 2D Echo 11/23/2019 Moderate LV enlargement with LVH. Global systolic dysfunction with segmental features. LVEF 30% Elevated LV filling pressures RV is dilated with severe RV dysfunction Mild mitral annular calcification, mild thickening of the aortic valve without hemodynamically significant valvular disease There is a atrial level right to left shunt identified with saline contrast with free breathing andValsalva most likely via PFO LVEF unchanged from to previous echo from 2017 Surgeries: Please see above for surgical history Procedure: POSSIBLE ADJUSTMENT EXTERNAL FIXATOR Date: 12/01/2019 Surgery: Alena Mora DPM Procedure: RIGHT FOOT RECONSTRUCTION WITH APPLICATION OF CIRCULAR STATIC EXTERNAL FIXATION Date: 11/20/2019 Surgeon: Alena Mora DPM Procedure in Detail: I saw the patient in the preoperative holding area and the operative site was marked. The patient was then brought to the operating room placed on the table in a supine position. A formal timeout wasperformed indicating the patient's name, date of , site/side and procedure to be performed. All parties were in agreement. A pneumatic ankle tourniquet was placed about the right/left ankle. Following IV sedation, local anesthesia was obtained about the right/left ankle utilizing a 1 1 mixtureof 1% lidocaine plain and 0.25% Marcaine plain. The foot was then scrubbed, prepped and draped in the usual aseptic manner. An Esmarch was then used to accentuate the patient's right/left foot and the tourniquet was inflated Upon completion of the procedure, the incision site was dressed with Xeroform, 4 x 4's, light Kerlix and dry sterile dressing.The tourniquet was then deflated and a prompt hyperemic response was noted to all digits of the right/left foot. An Zechariah bandage was applied to the right/left foot. I was present for the entirety of the surgery. The patient tolerated procedure and anesthesia well and was transferred to the PACU vital signs stable and vascular status intact to the right/left foot. Following a period of postoperative monitoring, the patient will be discharged home with instructions and prescriptions. Procedure: ARTHROPLASTY 2ND TOE RIGHT FOOT Date: 01/25/2019 Surgeon: Rosa M Robles DPM Pathology: not on file * Maki Horan RN - 11/30/2019 11:27 AM EST Pt has own oxygen tank and wheelchair in bathroom, pt also has shorts. documented in this encounter* Nelda Gilliam RN - 02/02/2020 9:07 AM EDT Surgical mask and gloves were worn while in this patient's room. * AbbyAlena DPM - 02/02/2020 8:36 AM EDT Associated Order(s): Wound Debridement; Wound Debridement Post-Procedure Diagnose(s): Dehiscence of operative wound, subsequent encounter; 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); Charcot's joint of right foot; Skin ulcer of right great toewith fat layer exposed (HCC) Subjective: Patient is a pleasant 59-year-old male who presents to the wound care center for his 6 weeks follow-up evaluation status post right midfoot wedge resection and application of external fixator for Charcot reconstruction (date of surgery 11/20/2019). Patient states that he has been doing well. Patientstates that he has been nonweightbearing as instructed to the right lower extremity. He states thatthe nursing staff has been changing his dressing as instructed. No new pedal complaints.Denies fevers, chills, nausea, vomiting, chest pain, shortness of breath, or any other constitutional symptoms. Objective: Vascular: DP and PT pulses are palpable 2/4. Cap refill time is brisk to distal digits. Skin temperature is warm to warm from proximal tibial tuberosity to distal digits. +1 pitting edema noted to the right foot. Neuro: Gross sensation is intact. Protective sensation is absent. Dermatologic: The right foot plantar surgical incision site is well coapted with exception of the central medial aspect where a dehiscence is noted measuring 2.5 x 0.5 x 0.4 cm. No appreciable drainage noted. Wound is fibrogranular. It does not probe to bone. No erythema, edema, drainage, or any acute signs of infection.All pin sites are intact with no surrounding erythema, edema, drainage, with exception of the most proximal medial two pins. The external fixation device is intact. No looseningof pins or wires. The previously noted blister on the distal tuft of the right great toe has a stable eschar, which has fallen off leaving a full thickness ulceration down to subcutaneous tissue, measuring 0.3 x 0.3 x 0.2 cm. A partial thickness ulceration noted to right 3rd toe secondary to blister has resolved. No sign of infection. Musculoskeletal: Patient is able to wiggle digits. Compartments are soft and compressible. No calf pain. Assessment: 10.5 weeks status post right midfoot wedge resection and application of external fixator for Charcot reconstruction (Date of surgery 11/20/2019 -Dr. Mora). Charcot arthropathy, midfoot, right foot Diabetes with peripheral neuropathy Hemorrhagic blister, right great toe --> deep tissue injury --> a loose eschar --> subcutaneous ulceration Dehiscence to central incision site --> down to subcutaneous layer - unchanged Retained orthopedic hardware, Loose pin, removed Blister 3rd toe, right foot - resolved Plan: Patient was seen and evaluated. Discussed all clinical findings. Patient is doing well overall. The dehisced site was in need of debridement to removal all nonviable tissue, biofilm, callus. The wound bed was debrided down to and including subcutaneous tissue using a ring curette. No anesthesiasecondary to neuropathy. Hemostasis achieved with compression. See procedure note. Applied kb and dsd to wound site. The distal tuft of the right great toe was in need of debridement to removal all nonviable tissue, biofilm, callus. The wound bed was debrided down to and including subcutaneous tissue using a ring curette. No anesthesia secondary to neuropathy. Hemostasis achieved with compression. See procedure note. Applied kb and dsd to wound sites. All pins were cleansed with alcohol and Betadine was applied to all pins at the skin interface. A 6 inch Zechariah bandage was then applied around the external fixator construct. Patient is to keep nonweightbearing to the right lower extremity at all times. He is to keep everything clean and dry. Nurses are to clean wires every other day with alcohol. In addition, Nurses to apply cellerate and bacitracin to dehisced central incision site plantar right foot and cover with 2 kerlix. All questions were answered to satisfaction. Patient is to return to clinic in 1 week for follow-up evaluation Alena Mora DPM Wound Care Debridement Timeout: Verbal Consent obtained?: Yes Written Consent obtained?: Yes Consent given by: Patient Immediately prior to procedure a time out was called to verify the correct patient, procedure, equipment, support service tech and site/side marked as required Debridement Procedure: Debridement Performed for Assessment: Right plantar foot Performed by: Physician Debridement Type: Surgical Pain Control: N/A Level: Skin/Subcutaneous Tissue Post Debridement Measurements: Length (cm): 2.5 Width (cm): 0.5 Depth (cm): 0.4 Area (sq cm): 1.25 Volume (cm3): 0.5 Percent Debrided: 100 Total Area Debrided (sq cm): 1.25 Tissue and other material debrided: Subcutaneous Devitalized tissue debrided: Biofilm, Slough and Fibrin Instrument: Curette Bleeding: Minimal Hemostasis Achieved: Pressure Procedural Pain: Insensate Post Procedural Pain: Insensate Response to Treatment: Procedure was tolerated well Wound Care Debridement Timeout: Verbal Consent obtained?: Yes Written Consent obtained?: Yes Consent given by: Patient Immediately prior to procedure a time out was called to verify the correct patient, procedure, equipment, support service tech and site/side marked as required Debridement Procedure: Debridement Performed for Assessment: Right great toe Performed by: Physician Debridement Type: Surgical Pain Control: N/A Level: Skin/Subcutaneous Tissue Post Debridement Measurements: Length (cm): 0.3 Width (cm): 0.3 Depth (cm): 0.2 Area (sq cm): 0.09 Volume (cm3): 0.02 Percent Debrided: 100 Total Area Debrided (sq cm): 0.09 Tissue and other material debrided: Subcutaneous Devitalized tissue debrided: Biofilm and Fibrin Instrument: Curette Bleeding: Minimal Hemostasis Achieved: Pressure Procedural Pain: Insensate Post Procedural Pain: Insensate Response to Treatment: Procedure was tolerated well documented in this encounter* Nelda Gilliam RN - 02/09/2020 9:54 AM EDT Surgical mask and gloves were worn while in this patient's room. LPapstRN * Alena Mora DPM - 02/09/2020 8:41 AM EDT Associated Order(s): Wound Debridement Post-Procedure Diagnose(s): Dehiscence of operative wound, subsequent encounter; 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); Type 2 diabetes mellitus with diabetic autonomic neuropathy,with long-term current use of insulin (HCC) Subjective: Patient is a pleasant 59-year-old male who presents to the wound care center for his 11.5 weeks follow-up evaluation status post right midfoot wedge resection and application of external fixator for Charcot reconstruction (date of surgery 11/20/2019). Patient states that he has been doing well. Patient states that he has been nonweightbearing as instructed to the right lower extremity. He states that the nursing staff has been changing his dressing as instructed. No new pedal complaints.Denies fevers, chills, nausea, vomiting, chest pain, shortness of breath, or any other constitutional symptoms. Objective: Vascular: DP and PT pulses are palpable 2/4. Cap refill time is brisk to distal digits. Skin temperature is warm to warm from proximal tibial tuberosity to distal digits. +1 pitting edema noted to the right foot. Neuro: Gross sensation is intact. Protective sensation is absent. Dermatologic: The right foot plantar surgical incision site is well coapted with exception of the central medial aspect where a dehiscence is noted measuring 2.0 x 0.3 x 0.3 cm with a skin island at the 1 cm felicia. No appreciable drainage noted. Wound is fibrogranular. It does not probe to bone. No erythema, edema, drainage, or any acute signs of infection.All pin sites are intact with no surrounding erythema, edema, drainage, with exception of the most proximal medial two pins. The external fixation device is intact. No loosening of pins or wires. The previously noted blister on the distal tuft of the right great toe has a stable eschar, which has fallen off leaving a full thickness ulceration down to subcutaneous tissue, measuring 0.2 x 0.2 x 0.2 cm. A partial thickness ulceration noted to right 3rd toe secondary to blister has resolved. No sign of infection. Musculoskeletal: Patient is able to wiggle digits. Compartments are soft and compressible. No calf pain. Assessment: 11.5 weeks status post right midfoot wedge resection and application of external fixator for Charcot reconstruction (Date of surgery 11/20/2019 -Dr. Mora). Charcot arthropathy, midfoot, right foot Diabetes with peripheral neuropathy Hemorrhagic blister, right great toe --> deep tissue injury --> a loose eschar --> subcutaneous ulceration --> improved Dehiscence to central incision site --> down to subcutaneous layer --> improving Retained orthopedic hardware, Loose pin, removed Blister 3rd toe, right foot - resolved Plan: Patient was seen and evaluated. Discussed all clinical findings. Patient is doing well overall. Radiographs of the right foot were evaluated. Good alignment noted within the midfoot with closure of the midfoot wedge and recreation of the medial longitudinal arch. Good alignment of the hindfoot given the severity of his charcot deformity. The dehisced site was in need of debridement to removal all nonviable tissue, biofilm, callus. The wound bed was debrided down to and including subcutaneous tissue using a ring curette. No anesthesiasecondary to neuropathy. Hemostasis achieved with compression. See procedure note. Applied kb and dsd to wound site. All pins were cleansed with alcohol was applied to all pins at the skin interface. A 6 inch Zechariah bandage was then applied around the external fixator construct. Patient is to keep nonweightbearing to the right lower extremity at all times. He is to keep everything clean and dry. Nurses are to clean wires every other day with alcohol. In addition, Nurses to apply cellerate and bacitracin to dehisced central incision site plantar right foot and cover with 2 kerlix. All questions were answered to satisfaction. Patient is to return to clinic in 1 week for follow-up evaluation Alena Mora DPM Wound Care Debridement Timeout: Verbal Consent obtained?: Yes Written Consent obtained?: Yes Consent given by: Patient Immediately prior to procedure a time out was called to verify the correct patient, procedure, equipment, support service tech and site/side marked as required Debridement Procedure: Debridement Performed for Assessment: Right planar wound Performed by: Physician Debridement Type: Surgical Pain Control: N/A Level: Skin/Subcutaneous Tissue Post Debridement Measurements: Length (cm): 2 Width (cm): 0.3 Depth (cm): 0.3 Area (sq cm): 0.6 Volume (cm3): 0.18 Percent Debrided: 100 Total Area Debrided (sq cm): 0.6 Tissue and other material debrided: Subcutaneous Devitalized tissue debrided: Biofilm and Slough Instrument: Curette Bleeding: Minimal Hemostasis Achieved: Pressure Procedural Pain: Insensate Post Procedural Pain: Insensate Response to Treatment: Procedure was tolerated well documented in this encounter* Phoebe Duncan RN - 02/09/2020 8:00 AM EDT Date: 02/09/2020 No new labs/ results as of last note: 01/26/2020 Update from previous note Current Antibiotic: Doxycycline 100 mg PO daily for 6 weeks - Started 01/03/2020 Previous Antibiotic: Doxycycline 100 mg BID for 6 weeks - Start 01/03/2020 Merrem 1,000 mg IV every 12 Hours until January 02, 2020 ([facility]) Rocephin 2 gm IV every 24 Hours Ancef 2,000 mg IV every 8 Hours Pre/Post Procedure Dressings: Right foot - Clean pins and wires with alcohol and paint with betadine. Kb to right great toe. Per Dr. Mora. Current culture: 12/28/2019 - Right foot, aerobic culture: Normal Chalino after 48 hours. Recent Cultures: 12/21/2019 - Right foot, aerobic - normal chalino after 48 hours 12/21/2019 - Right foot, anaerobic: No anaerobic growth at 2 days. 12/10/2019 Right Foot Wound Aerobic Culture: Normal Chalino After 48 Hours. Final 12/10/2019 Right foot wound, anaerobic culture: No anaerobic growth at 2 days. Final 12/08/2019 Urine Aerobic Culture: No Growth (<1,000 CFU/mL). Final. 12/07/2019 Urine Aerobic Culture on arrival to Nursing Rehab Unit: No Growth (<1,000 CFU/mL). Final. 12/02/2019 Right Foot Tissue Aerobic Culture: Normal Chalino After 48 Hours. Final. 12/02/2019 Right Foot Tissue AFB Culture: No Acid Fast Bacilli after 8 weeks. Final. 12/02/2019 Right Foot Tissue Anaerobic Culture: No Anaerobic Growth at 2 Days. Final. 12/02/2019 Right Foot Tissue Fungus Culture: No fungus isolated at 4 weeks. Final. 12/01/2019 Blood Culture #1: No Growth After 5 Days. Final. 12/01/2019 Blood Culture #2: No Growth After 5 Days. Final. 11/30/2019 Right Foot Wound Aerobic Culture: Normal Chalino After 48 Hours. Final. 11/21/2019 Left Leg Wound Aerobic Culture: Normal Chalino After 48 Hours. Final. 11/20/2019 Right Foot Tissue Aerobic Culture: Moderate Growth Enterobacter cloacae complex, S=Youssef Sensitive. Final. 11/20/2019 Right Foot Tissue Anaerobic Culture: No Anaerobic Growth at 2 Days. Final. 11/20/2019 Right Foot Bone Aerobic Culture: Light Growth Enterobacter Cloacae Complex, S=Youssef Sensitive. Final. 11/20/2019 Right Foot Bone Anaerobic Culture: No Anaerobic Growth at 2 Days. Final * Maria Isabel Awad MD - 02/09/2020 8:00 AM EDT 12/04/2019 Patient Name: Dyllan Huertas Admit Date: MR #: [id number] : 1960 Physicians: Rohit Aguilar MD (Family); No ref. provider found (Referring) Assessment and Plan: Number 1 November 232019 Impression Right foot ulcer status post surgical intervention Severe Charcot deformity status post surgical intervention Enterobacter cloaca infection and gram-negative infection see cultures below Raull[place]ela which is a gram-negative Acute osteomyelitis bone culture on 11/20/2019+ for the same pathogen that was present in January 2019is Enterobacter cloaca pansensitive RAJINDER none on chart 11/24/2019 Osteomyelitis as bone culture is positive from 11/20/2019 for Enterobacter cloaca 11/30/2019 New drainage from the pin site Elevated sed rate Elevated CRP Osteomyelitis right foot 12/01/2019 Osteomyelitis right foot Delayed healing of the plantar foot postop wound Cellulitis of the foot 12/04/2019 Status post surgical intervention with incision and drainage by Dr. Mora on 12/02/2019 cultures now with normal chalino AFB and fungus negative 12/05/2019 Sed rate 85 CRP 85 Per rehab physician there is a risk for the left ankle issues especially with diabetic neuropathy in the left foot and he has had right foot surgery 12/06/2019 OR cultures negative elevated CRP could be just postop We will continue IV antibiotics as planned till January 01 Rocephin 2 g every 24 hours 12/11/2019 Right foot wound with some maceration drainage 12/12/2019 CRP improving 12/21/2019 Patient is home now last night he was having difficulty flushing the line PICC line not functioning well because the picc team Plantar foot wound no cellulitis no maceration pin sites look excellent 2019 Right foot wound postop healing remarkably cellulitis improved Patient completing treatment for acute osteomyelitis Enterobacter infection Minimal drainage at the incision site will culture today January 12, 2020 Right second toe and great toe superficial ulceration present Right plantar foot wound excellent with almost healing no drainage no redness Sed rate 33 last CRP 6.4 12/28/2019 much better than before last culture normal chalino from December 27 January 19, 2020 Osteomyelitis right foot Charcot with correction surgery done Postop wound with delayed healing January 26, 2020 Postop right plantar wound continues to improve Last culture normal chalino on December 27 last lab work was December 27 CRP 6.5 We will do CBC CMP sed rate CRP at next visit in the wound clinic orders are in the computer from I will see him in 2 weeks February 09, 2020 Patient almost completing 3 months of total antibiotic treatment was on antibiotics prior to that also Plantar foot postop wound has not healed up completely yet being debrided periodically by podiatry Plain x-ray was done on January 12, 2020 I looked at the film still shows significant destruction I do not know if you are seeing any fusion yet I will need to talk with podiatry on that CBC CMP sed rate CRP has been ordered results are still pending this is to decide the duration of antibiotic treatment Plan February 09, 2020 CBC CMP sed rate CRP today Doxycycline 100 mg p.o. daily suppressive treatment continued at least till March 03 for now I may need to go if I decide up to 6 months it would be till June 03 And if it is 1 year it will be till November 2020 It all depends on what podiatry sees on the x-rays and discusses with me what the rec needs would be I will discuss with Dr. Mora Return to see me and Dr. Mora in 2 weeks January 26, 2020 Doxycycline 100 mg p.o. once a day suppressive treatment Local dressings per Dr. Mora The least I would consider continuing the doxycycline would be up to February [address] Mora January 19, 2020 Patient has received 6 weeks of IV antibiotics Followed by 2 weeks of oral antibiotic Will decrease doxycycline to 100 mg p.o. once a day Dressings per Dr. Mora Revisit next week I have discussed with Dr. Mora January 12, 2020 Discontinue PICC line was done on January 01 Discontinue IV meropenem Doxycycline 100 g p.o. twice daily for 2 months I will give 30 days with 1 refill Local dressings per Dr. Mora Revisit 2 weeks for me with Dr. Mora 12/28/2019 Meropenem 1 g IV twice daily till January 01 which will be 6 weeks of treatment Labs could not be drawn at home because of difficulty for peripheral draw I did not want him to drive from the line because of risk of clotting We will draw them here today After that we will give him doxycycline 100 mg p.o. twice daily for 6 weeks to make 3 months treatment 12/21/2019 IV meropenem 1 g twice daily till January 01 Picc team to evaluate the PICC line consider another midline if needed Revisit 3 weeks for me 12/18/2019 OPAT referral IV meropenem 1 g every 12 till January 01 Home IV antibiotic by [facility] Any dressing orders would be per Dr. Mora CBC CMP sed rate CRP every Wednesday12/14/2019 and 12/15/2019 Continue IV meropenem till January 01 if he can manage to do that Await a picture by podiatry upon dressing change today I have discussed with podiatry Will plan for CBC CMP sed rate CRP next week 12/12/2019 Patient tolerating the meropenem Will await Dr. Mora to check the dressing on the wound at her next rounds Discontinue Rocephin Start meropenem 1 g IV every 12 for the Enterobacter and the other gram-negative that he had seen in the cultures especially with the extensive surgery that was done and he had some drainage on the weekend Continue IV antibiotics till January 01 CBC CMP sed rate CRP Will discuss with Dr. Lopez and Dr. Mora 12/08/2019 Rocephin continued till January 01 Urinary retention to be evaluated by Dr. Lopez Will await for Dr. Mora to do the dressings 12/07/2019 Rocephin 2 g IV 24 hours till January 01 Discontinue Schulte catheter CBC CMP sed rate CRP on Wednesday12/06/2019 Rocephin 2 g to 24 hours till January 01 CBC CMP sed rate CRP periodically Transfer to rehab he has been accepted Will follow the patient in rehab with Dr. Lopez and Dr. Mora 12/05/2019 Rocephin 2 g IV 24 hours continue till January 01 because of the second surgery Elevated sed rate CRP will be followed Await transfer to rehab if approved and bed available 12/04/2019 Rocephin 2 g IV every 24 hours CBC CMP sed rate CRP Rehab referral with Dr. Lopez here if possible We will discuss with podiatry I have discussed with hospitalist OR cultures normal chalino negative AFB and fungus Blood cultures negative so far 12/01/2019 Continue Rocephin till further cultures available CBC CMP sed rate CRP Blood cultures x2 half an hour apart He did bleed well even in the wound clinic yesterday at some point will order arterial Dopplers I have discussed with podiatry at length 11/30/2019 Culture the pin site that is bleeding and draining Follow-up CBC Liver function test Rocephin 2 g IV every 24 hours continue till December 18 May need to go up to additional 2 weeks afterMarch which will be January 01 we will decide based on lab results and clinical response If the culture of the pin site shows any additional pathogens may need to readmit for additional IVantibiotics and streamlining treatment Revisit 1 week both I have discussed with podiatry Chief Complaint/Reason for Visit: I am seeing this patient at the request of Dr. Boogie Phan MD. I have reviewed the current hospital record, available laboratory, cardiology and imaging studies as well as available out patient records. History of Present Illness: Admission H&P by Boogie Phan MD on 11/30/2019: Dyllan Huertas is a 59 y.o. male presenting from home with h/o diabetes on disability since 2014 related to a Charcot foot and diabetes developed an ulcer in the beginning of 2018 was being followed by Dr. Robles at the office we have cultures from last year in January with Enterobacter and since then culture with gram-negative bacteria also was seen by Dr. Mora was found to have severe Charcot a corrective surgery was done with placement of an external fixator on 11/20. Today at wound clinic follow up was found to have increased drainage from one of the pin sites, being admitted for continued IV ATB and possible OR/ exploration in am. Exam: Tmax: 99 Urine Output: 2000 Stool: not recorded There were no vitals filed for this visit. Allergies: no known allergies. Current Outpatient Medications: alteplase (CATH AMANDO) 2 mg injection, Instill 2mL into clotted IV line as needed for brake liner. May repeat as needed. Do not use on Peripheral or Midlines ., Disp: 2 mL, Rfl: 52 calcium carbonate 400 mg Chew, Chew and Swallow 1,000 mg daily ., Disp: , Rfl: carvediloL (COREG) 12.5 MG tablet, Take 1 (one) tablet (12.5 mg total) by mouth 2 (two) times a day., Disp: 60 tablet, Rfl: 0 docusate sodium (COLACE) 100 MG capsule, Take 100 mg by mouth daily ., Disp: , Rfl: doxycycline hyclate (VIBRAMYCIN) 100 MG capsule, Take 1 (one) capsule (100 mg total) by mouth 2 (two) times a day Stay out of the sun. ., Disp: 60 capsule, Rfl: 1 FENOFIBRATE MICRONIZED ORAL, Take 160 mg by mouth daily ., Disp: , Rfl: finasteride (PROSCAR) 5 mg tablet, Take 2.5 mg by mouth every night at bedtime Wednesday,WED,WED ., Disp: , Rfl: gabapentin (NEURONTIN) 300 MG capsule, gabapentin GABAPENTIN 300 MG CAPS One tablet by mouth daily GABAPENTIN [id number] Sebastián Dailey MD 06-15-2017 [facility] ([id number]), Disp: , Rfl: heparin, porcine, PF, 100 unit/mL Syrg, For Open Ended Midline/PICC/CVC/Port: Flush with 5ml heparin as final flush after each use, weekly if not used. Use 3ml for Peripheral IV ., Disp: 100 Syringe,Rfl: 52 insulin NPH (HumuLIN,NovoLIN) 100 unit/mL injection, Take 30 units with breakfast, and 26 units at bedtime ., Disp: 20 mL, Rfl: 12 insulin regular (HumuLIN R, NovoLIN R) 100 unit/mL injection, Take 12 units three times daily before meals ., Disp: 20 mL, Rfl: 5 levothyroxine (SYNTHROID, LEVOTHROID) 112 MCG tablet, once daily ., Disp: , Rfl: magnesium oxide (MAG-OX) 400 mg (241.3 mg magnesium) tablet, Take 400 mg by mouth daily ., Disp: , Rfl: melatonin 5 mg Tab, Take 10 mg by mouth daily ., Disp: , Rfl: metFORMIN (GLUCOPHAGE-XR) 500 MG 24 hr tablet, 1,000 mg 2 (two) times a day ., Disp: , Rfl: multivitamin (THERAGRAN) per tablet, Take 1 tablet by mouth daily ., Disp: , Rfl: nitroGLYCERIN (NITROSTAT) 0.4 MG SL tablet, Place 1 (one) tablet (0.4 mg total) under the tongue every 5 (five) minutes as needed for chest pain , if no relief after 3 doses call 911 ., Disp: 90 tablet, Rfl: 12 rosuvastatin (CRESTOR) 20 MG tablet, 20 mg daily ., Disp: , Rfl: tamsulosin (FLOMAX) 0.4 mg capsule, tamsulosin TAMSULOSIN HCL 0.4 MG CAPS One tablet by mouth [id number] TAMSULOSIN HCL [id number] Sebastián Dailey MD 06-15-2017 [facility] ([id number]), Disp: , Rfl: PMH/PSH/SH/FH reviewed, no change except: Status post surgical intervention by Dr. Mora on 12/02/2019 12/05/2019 Patient was seen by rehab physician rehab evaluation in progress patient's left ankle is at risk because of right foot surgery and diabetic neuropathy in the left foot also 12/07/2019 patient is now in rehab Review of Systems: All systems were reviewed and negative except: Denies any fever chills no pain in the right leg and foot 12/06/2019 denies any fever chills or diarrhea 12/08/2019 Schulte had to be reinserted for urinary increase residual 12/11/2019 Dressing was changed by Dr. Mora on Wednesday there was some drainage culture was done there was some maceration culture result is normal chalino Dr. Mora's note was reviewed by mo Medications Reviewed. Chart Reviewed. Temperature 97.7 pulse 80 pressure 120/75 Exam Findings: Constitutional: HENT: Pupils reactive head: No oral candidiasis Eyes: No icterus Neck: Supple Cardiovascular: Heart S1-S2 2 by systolic murmur present no S3 Murmur Pulmonary/Chest: Clear Abdominal: Soft Musculoskeletal: No calf tenderness on the right leg Neurological: Has diabetic neuropathy with Charcot is able to wiggle the toes Skin no redness or cellulitis noted on the plantar foot area Schulte: Patient does have a Schulte catheter followed by urology was changed by Dr. Izquierdo but he still has a Schulte catheter IV: None other: External fixator in place no drainage noted on the dressing pin sites are clean and dry the plantar foot wound l has a whitish base Wound (Outpatient Only) 03/31/19 Foot Anterior;Right;Plantar (Active) Wound Image 02/09/2020 8:22 AM Wound Length (cm) 2 cm 02/09/2020 8:22 AM Wound Width (cm) 0.3 cm 02/09/2020 8:22 AM Wound Depth (cm) 0.3 cm 02/09/2020 8:22 AM Wound Surface Area (cm^2) 0.6 cm^2 02/09/2020 8:22 AM Wound Volume (cm^3) 0.18 cm^3 02/09/2020 8:22 AM Area % Change -75 02/09/2020 8:22 AM Volume % Change 0 02/09/2020 8:22 AM Tunneling Maximum Distance (cm) 0 cm 02/09/2020 8:22 AM Tunneling Position (o'clock) 0 02/09/2020 8:22 AM Undermining Maximum Distance (cm) 1 0 cm 02/09/2020 8:22 AM Undermining Starting Position (o'clock) 1 0 02/09/2020 8:22 AM Undermining Ending Position (o'clock) 1 0 02/09/2020 8:22 AM Wound Encounter Subsequent 02/09/2020 8:22 AM Wound Progress Improving 02/09/2020 8:22 AM Non-staged Wound Description Partial thickness 02/09/2020 7:00 AM Drainage Amount Scant 02/09/2020 7:00 AM Drainage Description Yellow 02/09/2020 7:00 AM Odor None 02/09/2020 7:00 AM Wound Margin Attached to wound base 02/09/2020 7:00 AM Adherent Yellow Slough % None 02/09/2020 7:00 AM Moist Yellow Slough % None 02/09/2020 7:00 AM Dry Black Eschar % None 02/09/2020 7:00 AM Moist Black Eschar % None 02/09/2020 7:00 AM Epithelialization % 51-75% 02/09/2020 7:00 AM Granulation % 26-50%;[place] 02/09/2020 7:00 AM Exposed Structure None 02/09/2020 7:00 AM Wound Bed Characteristics Clean;Intact;Granulation tissue 02/09/2020 7:00 AM Wound Closure Sutures 12/28/2019 8:15 AM Angeli-wound Assessment Temperature WNL 02/09/2020 7:00 AM Treatments Not Applicable 01/19/2020 7:00 AM Hemostasis Not applicable 01/19/2020 7:00 AM Cleansed Soap and water 02/09/2020 7:00 AM Primary Dressing Collagen with silver 01/19/2020 7:00 AM Secondary Dressing Gauze pad;Gauze roll;Dry gauze dressing 01/19/2020 7:00 AM Compression Dressing Zechariah wrap 01/19/2020 7:00 AM Wound 12/14/19 Pressure Injury Great Toe;Toe Anterior;Right (Active) Wound Image 02/09/2020 7:00 AM Wound Length (cm) 0.4 cm 02/09/2020 7:00 AM Wound Width (cm) 0.7 cm 02/09/2020 7:00 AM Wound Depth (cm) 0 cm 01/26/2020 7:00 AM Wound Surface Area (cm^2) 0.28 cm^2 02/09/2020 7:00 AM Wound Volume (cm^3) 0 cm^3 01/26/2020 7:00 AM Area % Change 0 02/09/2020 7:00 AM Tunneling Maximum Distance (cm) 0 cm 02/09/2020 7:00 AM Tunneling Position (o'clock) 0 02/09/2020 7:00 AM Tunneling Maximum Distance (cm) 0 cm 02/09/2020 7:00 AM Tunneling Position (o'clock) 0 02/09/2020 7:00 AM Undermining Maximum Distance (cm) 1 0 cm 02/09/2020 7:00 AM Undermining Starting Position (o'clock) 1 0 02/09/2020 7:00 AM Undermining Ending Position (o'clock) 1 0 02/09/2020 7:00 AM Undermining Maximum Distance (cm) 2 0 cm 02/09/2020 7:00 AM Undermining Starting Position (o'clock) 2 0 02/09/2020 7:00 AM Undermining Ending Position (o'clock) 2 0 02/09/2020 7:00 AM Wound Progress Improving 02/09/2020 7:00 AM State of Healing Eschar 01/12/2020 7:00 AM Non-staged Wound Description Eschar covered 02/09/2020 7:00 AM Drainage Amount Scant 02/09/2020 7:00 AM Drainage Description Yellow 02/09/2020 7:00 AM Odor None 02/09/2020 7:00 AM Wound Margin Attached to wound base 02/09/2020 7:00 AM Adherent Yellow Slough % 76-100% 02/09/2020 7:00 AM Moist Yellow Slough % 76-100% 02/09/2020 7:00 AM Dry Black Eschar % None 02/09/2020 7:00 AM Moist Black Eschar % None 02/09/2020 7:00 AM Epithelialization % 76-100% 02/09/2020 7:00 AM Granulation % None 02/09/2020 7:00 AM Exposed Structure None 02/09/2020 7:00 AM Wound Bed Characteristics Clean;Dry;Intact 02/09/2020 7:00 AM Angeli-wound Assessment Temperature WNL 02/09/2020 7:00 AM Treatments Not Applicable 02/09/2020 7:00 AM Hemostasis Not applicable 02/09/2020 7:00 AM Cleansed Soap and water 02/09/2020 7:00 AM Primary Dressing Antibiotic ointment / cream 02/02/2020 8:00 AM Compression Dressing Not Applicable 01/19/2020 7:00 AM Wound 01/12/20 3 Acute Abrasion(s) Third Toe Right;Medial (Active) Wound Image 02/09/2020 7:00 AM Wound Length (cm) 0 cm 02/09/2020 7:00 AM Wound Width (cm) 0 cm 02/09/2020 7:00 AM Wound Depth (cm) 0 cm 02/09/2020 7:00 AM Wound Surface Area (cm^2) 0 cm^2 02/09/2020 7:00 AM Wound Volume (cm^3) 0 cm^3 02/09/2020 7:00 AM Area % Change 0 02/09/2020 7:00 AM Tunneling Maximum Distance (cm) 0 cm 02/09/2020 7:00 AM Tunneling Position (o'clock) 0 02/09/2020 7:00 AM Tunneling Maximum Distance (cm) 0 cm 02/09/2020 7:00 AM Tunneling Position (o'clock) 0 02/09/2020 7:00 AM Undermining Maximum Distance (cm) 1 0 cm 02/09/2020 7:00 AM Undermining Starting Position (o'clock) 1 0 02/09/2020 7:00 AM Undermining Ending Position (o'clock) 1 0 02/09/2020 7:00 AM Undermining Maximum Distance (cm) 2 0 cm 02/09/2020 7:00 AM Undermining Starting Position (o'clock) 2 0 02/09/2020 7:00 AM Undermining Ending Position (o'clock) 2 0 02/09/2020 7:00 AM Wound Progress Improving 02/09/2020 7:00 AM Non-staged Wound Description Partial thickness 01/19/2020 7:00 AM Drainage Amount None 02/09/2020 7:00 AM Drainage Description Yellow 01/19/2020 7:00 AM Odor None 02/09/2020 7:00 AM Wound Margin Attached to wound base 02/09/2020 7:00 AM Adherent Yellow Slough % None 02/09/2020 7:00 AM Moist Yellow Slough % None 02/09/2020 7:00 AM Dry Black Eschar % None 02/09/2020 7:00 AM Moist Black Eschar % None 02/09/2020 7:00 AM Epithelialization % 76-100% 02/09/2020 7:00 AM Granulation % None 02/09/2020 7:00 AM Exposed Structure None 02/09/2020 7:00 AM Wound Bed Characteristics Clean;Dry;Intact 02/09/2020 7:00 AM Angeli-wound Assessment Temperature WNL 02/09/2020 7:00 AM Treatments Not Applicable 02/09/2020 7:00 AM Hemostasis Not applicable 02/09/2020 7:00 AM Cleansed Soap and water 02/09/2020 7:00 AM Primary Dressing Collagen with silver 01/19/2020 7:00 AM Compression Dressing Not Applicable 02/02/2020 8:00 AM Wound 01/23/20 3 Chronic Diabetic Ulcer Foot Plantar (Active) Wound Image 02/02/2020 8:28 AM Wound Length (cm) 2.8 cm 02/02/2020 8:28 AM Wound Width (cm) 0.5 cm 02/02/2020 8:28 AM Wound Depth (cm) 0.4 cm 02/02/2020 8:28 AM Wound Surface Area (cm^2) 1.4 cm^2 02/02/2020 8:28 AM Wound Volume (cm^3) 0.56 cm^3 02/02/2020 8:28 AM Area % Change 40 02/02/2020 8:28 AM Wound Healing % 71 02/02/2020 8:28 AM Tunneling Position (o'clock) 00 02/02/2020 8:00 AM Tunneling Maximum Distance (cm) 0 cm 02/02/2020 8:00 AM Tunneling Position (o'clock) 0 02/02/2020 8:00 AM Undermining Maximum Distance (cm) 1 0 cm 02/02/2020 8:00 AM Undermining Starting Position (o'clock) 1 0 02/02/2020 8:00 AM Undermining Ending Position (o'clock) 1 0 02/02/2020 8:00 AM Undermining Maximum Distance (cm) 2 0 cm 02/02/2020 8:00 AM Undermining Starting Position (o'clock) 2 0 02/02/2020 8:00 AM Undermining Ending Position (o'clock) 2 0 02/02/2020 8:00 AM Wound Progress Improving 02/02/2020 8:00 AM Non-staged Wound Description Partial thickness 02/02/2020 8:00 AM Drainage Amount Scant 02/02/2020 8:00 AM Drainage Description Serosanguineous 02/02/2020 8:00 AM Odor None 02/02/2020 8:00 AM Wound Margin Attached to wound base 01/26/2020 7:00 AM Adherent Yellow Slough % None 02/02/2020 8:00 AM Moist Yellow Slough % None 02/02/2020 8:00 AM Dry Black Eschar % None 02/02/2020 8:00 AM Moist Black Eschar % None 02/02/2020 8:00 AM Epithelialization % 76-100% 02/02/2020 8:00 AM Granulation % 76-100%;[place] 02/02/2020 8:00 AM Exposed Structure None 02/02/2020 8:00 AM Wound Bed Characteristics Clean;Intact;Granulation tissue 02/02/2020 8:00 AM Angeli-wound Assessment Temperature WNL;[place] 02/02/2020 8:00 AM Treatments Not Applicable 02/02/2020 8:00 AM Hemostasis Not applicable 01/26/2020 7:00 AM Cleansed Soap and water 02/02/2020 8:00 AM Primary Dressing Antibiotic ointment / cream 02/02/2020 8:00 AM Secondary Dressing Gauze roll;Gauze pad;Dry gauze 02/02/2020 8:00 AM Compression Dressing Zechariah wrap 02/02/2020 8:00 AM Laboratory and Additional Data Reviewed: Date: 02/09/2020 No new labs/ results as of last note: 01/26/2020 Update from previous note Current Antibiotic: Doxycycline 100 mg PO daily for 6 weeks - Started 01/03/2020 Previous Antibiotic: Doxycycline 100 mg BID for 6 weeks - Start 01/03/2020 Merrem 1,000 mg IV every 12 Hours until January 02, 2020 ([facility]) Rocephin 2 gm IV every 24 Hours Ancef 2,000 mg IV every 8 Hours Pre/Post Procedure Dressings: Right foot - Clean pins and wires with alcohol and paint with betadine. Kb to right great toe. Per Dr. Mora. Current culture: 12/28/2019 - Right foot, aerobic culture: Normal Chalino after 48 hours. Recent Cultures: 12/21/2019 - Right foot, aerobic - normal chalino after 48 hours 12/21/2019 - Right foot, anaerobic: No anaerobic growth at 2 days. 12/10/2019 Right Foot Wound Aerobic Culture: Normal Chalino After 48 Hours. Final 12/10/2019 Right foot wound, anaerobic culture: No anaerobic growth at 2 days. Final 12/08/2019 Urine Aerobic Culture: No Growth (<1,000 CFU/mL). Final. 12/07/2019 Urine Aerobic Culture on arrival to Nursing Rehab Unit: No Growth (<1,000 CFU/mL). Final. 12/02/2019 Right Foot Tissue Aerobic Culture: Normal Chalino After 48 Hours. Final. 12/02/2019 Right Foot Tissue AFB Culture: No Acid Fast Bacilli after 8 weeks. Final. 12/02/2019 Right Foot Tissue Anaerobic Culture: No Anaerobic Growth at 2 Days. Final. 12/02/2019 Right Foot Tissue Fungus Culture: No fungus isolated at 4 weeks. Final. 12/01/2019 Blood Culture #1: No Growth After 5 Days. Final. 12/01/2019 Blood Culture #2: No Growth After 5 Days. Final. 11/30/2019 Right Foot Wound Aerobic Culture: Normal Chalino After 48 Hours. Final. 11/21/2019 Left Leg Wound Aerobic Culture: Normal Chalino After 48 Hours. Final. 11/20/2019 Right Foot Tissue Aerobic Culture: Moderate Growth Enterobacter cloacae complex, S=Youssef Sensitive. Final. 11/20/2019 Right Foot Tissue Anaerobic Culture: No Anaerobic Growth at 2 Days. Final. 11/20/2019 Right Foot Bone Aerobic Culture: Light Growth Enterobacter Cloacae Complex, S=Youssef Sensitive. Final. 11/20/2019 Right Foot Bone Anaerobic Culture: No Anaerobic Growth at 2 Days. Final Date: 01/26/2020 No new labs/ results as of last note: 01/19/2020 Update from previous note Current Antibiotic: Doxycycline 100 mg PO daily for 6 weeks - Started 01/03/2020 Previous Antibiotic: Doxycycline 100 mg BID for 6 weeks - Start 01/03/2020 Merrem 1,000 mg IV every 12 Hours until January 02, 2020 ([facility]) Rocephin 2 gm IV every 24 Hours Ancef 2,000 mg IV every 8 Hours Pre/Post Procedure Dressings: Right foot - Clean pins and wires with alcohol and paint with betadine. Kb to right great toe an plantar foot. Per Dr. Mora. Current culture: 12/28/2019 - Right foot, aerobic culture: Normal Chalino after 48 hours. Recent Cultures: 12/21/2019 - Right foot, aerobic - normal chalino after 48 hours 12/21/2019 - Right foot, anaerobic: No anaerobic growth at 2 days. 12/10/2019 Right Foot Wound Aerobic Culture: Normal Chalino After 48 Hours. Final 12/10/2019 Right foot wound, anaerobic culture: No anaerobic growth at 2 days. Final 12/08/2019 Urine Aerobic Culture: No Growth (<1,000 CFU/mL). Final. 12/07/2019 Urine Aerobic Culture on arrival to Nursing Rehab Unit: No Growth (<1,000 CFU/mL). Final. 12/02/2019 Right Foot Tissue Aerobic Culture: Normal Chalino After 48 Hours. Final. 12/02/2019 Right Foot Tissue AFB Culture: No Acid Fast Bacilli Seen. Preliminary. 12/02/2019 Right Foot Tissue Anaerobic Culture: No Anaerobic Growth at 2 Days. Final. 12/02/2019 Right Foot Tissue Fungus Culture: No fungus isolated at 4 weeks. Final. 12/01/2019 Blood Culture #1: No Growth After 5 Days. Final. 12/01/2019 Blood Culture #2: No Growth After 5 Days. Final. 11/30/2019 Right Foot Wound Aerobic Culture: Normal Chalino After 48 Hours. Final. 11/21/2019 Left Leg Wound Aerobic Culture: Normal Chalino After 48 Hours. Final. 11/20/2019 Right Foot Tissue Aerobic Culture: Moderate Growth Enterobacter cloacae complex, S=Youssef Sensitive. Final. 11/20/2019 Right Foot Tissue Anaerobic Culture: No Anaerobic Growth at 2 Days. Final. 11/20/2019 Right Foot Bone Aerobic Culture: Light Growth Enterobacter Cloacae Complex, S=Youssef Sensitive. Final. 11/20/2019 Right Foot Bone Anaerobic Culture: No Anaerobic Growth at 2 Days. Final January 19, 2020 12/28/2019 sed rate 33 CRP 6.4 WBC 4.6 culture on 12/28/2019 Gram stain negative culture normal chalino Date: 01/12/2020 New labs/ results as of last note: 12/28/2019 CBC Auto Differential Order: [id number] - Part of Panel Order [id number] Status: Final result Visible to patient: No (Not Released) Next appt: 01/12/2020 at 07:45 AM in Wound Care (Alena Mora DPM) Dx: Acute osteomyelitis (HCC); Elevated C... Component Ref Range & Units 12d ago (12/28/19) 3wk ago (12/18/19) 4wk ago (12/12/19) 1mo ago (12/07/19) 1mo ago (12/05/19) 1mo ago (12/02/19) 1mo ago (12/01/19) WBC 4.50 - 11.00 K/mcL 4.66 6.38 4.12Low 6.95 7.98 9.43 8.56 RBC 4.50 - 5.90 M/mcL 4.42Low 4.44Low 4.13Low 4.23Low 4.22Low 4.29Low 4.09Low Hemoglobin 13.5 - 17.5 g/dL 11.6Low 11.7Low 10.8Low 11.3Low 11.4Low 11.5Low 11.2Low Hematocrit 41.0 - 53.0 % 38.0Low 37.8Low 35.6Low 36.8Low 36.3Low 36.7Low 35.6Low MCV 80.0 - 100.0 fL 86.0 85.1 86.2 87.0 86.0 85.5 87.0 MCH 26.0 - 34.0 pg 26.2 26.4 26.2 26.7 27.0 26.8 27.4 MCHC 31.0 - 37.0 g/dL 30.5Low 31.0 30.3Low 30.7Low 31.4 31.3 31.5 Platelets 150 - 400 K/mcL 182 323 203 210 228 235 232 Comprehensive Metabolic Panel Order: [id number] Status: Final result Visible to patient: No (Not Released) Next appt: 01/12/2020 at 07:45 AM in Wound Care (Alena Mora DPM) Dx: Acute osteomyelitis (HCC); Elevated C... Component Ref Range & Units 12d ago (12/28/19) 3wk ago (12/18/19) 4wk ago (12/12/19) 1mo ago (12/07/19) 1mo ago (12/05/19) 1mo ago (12/02/19) 1mo ago (12/01/19) Sodium 135 - 145 mmol/L 142 142 140 138 139 137 140 Potassium 3.5 - 5.1 mmol/L 4.3 4.5 4.3 3.9 4.1 4.7 5.0 Chloride 98 - 108 mmol/L 109High 106 106 104 104 102 106 Bicarbonate 21 - 32 mmol/L 31 25 30 29 30 30 30 Anion Gap 10 - 20 mmol/L 6Low 16 8Low 9Low 9Low 10 9Low Glucose 65 - 99 mg/dL 135High 82 167High 243High 223High 256High 223High BUN 8 - 25 mg/dL 18 23 26High 17 19 19 22 Creatinine 0.50 - 1.30 mg/dL 0.71 1.04 0.89 0.86 0.86 1.06 0.98 eGFR >=60 mL/min/1.73 m2 104 79 95 96 96 78 85 BUN/Creatinine Ratio 10.0 - 20.0 25.4High 22.1High 29.2High 19.8 22.1High 17.9 22.4High Total Protein 6.0 - 8.0 g/dL 7.0 7.2 6.7 6.6 6.4 6.7 Albumin 3.2 - 5.2 g/dL 3.1Low 3.0Low 2.5Low 2.4Low 2.4Low 2.4Low Calcium 8.4 - 10.2 mg/dL 9.2 9.6 9.7 9.4 9.1 9.2 9.1 Alkaline Phosphatase 40 - 150 U/L 93 94 83 76 75 82 AST 0 - 45 U/L 16 20 35 28 20 32 Total Bilirubin 0.0 - 1.3 mg/dL 0.4 0.3 0.3 0.4 0.4 0.4 ALT 14 - 65 U/L 19 27 52 40 31 53 Resulting Agency Lab Lab Lab Lab Lab Lab Lab CRP, Inflammation Order: [id number] Status: Final result Visible to patient: No (Not Released) Next appt: 01/12/2020 at 07:45 AM in Wound Care (Alena Mora DPM) Dx: Acute osteomyelitis (HCC); Elevated C... Component Ref Range & Units 12d ago (12/28/19) 3wk ago (12/18/19) 4wk ago (12/12/19) 1mo ago (12/05/19) 1mo ago (12/02/19) 1mo ago (11/27/19) CRP(Inflammation) <=10.0 mg/L 6.4 18.7High 52.4High 85.3High 76.1High 69.0High Sedimentation Rate Order: [id number] Status: Final result Visible to patient: No (Not Released) Next appt: 01/12/2020 at 07:45 AM in Wound Care (Alena Mora DPM) Dx: Acute osteomyelitis (HCC); Elevated C... Component Ref Range & Units 12d ago (12/28/19) 3wk ago (12/18/19) 4wk ago (12/12/19) 1mo ago (12/05/19) 1mo ago (12/02/19) 1mo ago (11/27/19) Sed Rate 0 - 20 mm/hr 33High 72High 91High 85High 93High 94High Update from previous note Current Antibiotic: Doxycycline 100 mg PO BID for 6 weeks - Start 01/03/2020 Previous Antibiotic: Merrem 1,000 mg IV every 12 Hours until January 02, 2020 ([facility]) Rocephin 2 gm IV every 24 Hours Ancef 2,000 mg IV every 8 Hours Pre/Post Procedure Dressings: Per Dr. Mora Current culture: 12/28/2019 - Right foot, aerobic culture: Normal Chalino after 48 hours. Recent Cultures: 12/21/2019 - Right foot, aerobic - normal chalino after 48 hours 12/21/2019 - Right foot, anaerobic: No anaerobic growth at 2 days. 12/10/2019 Right Foot Wound Aerobic Culture: Normal Chalino After 48 Hours. Final 12/10/2019 Right foot wound, anaerobic culture: No anaerobic growth at 2 days. Final 12/08/2019 Urine Aerobic Culture: No Growth (<1,000 CFU/mL). Final. 12/07/2019 Urine Aerobic Culture on arrival to Nursing Rehab Unit: No Growth (<1,000 CFU/mL). Final. 12/02/2019 Right Foot Tissue Aerobic Culture: Normal Chalino After 48 Hours. Final. 12/02/2019 Right Foot Tissue AFB Culture: No Acid Fast Bacilli Seen. Preliminary. 12/02/2019 Right Foot Tissue Anaerobic Culture: No Anaerobic Growth at 2 Days. Final. 12/02/2019 Right Foot Tissue Fungus Culture: No fungus isolated at 4 weeks. Final. 12/01/2019 Blood Culture #1: No Growth After 5 Days. Final. 12/01/2019 Blood Culture #2: No Growth After 5 Days. Final. 11/30/2019 Right Foot Wound Aerobic Culture: Normal Chalino After 48 Hours. Final. 11/21/2019 Left Leg Wound Aerobic Culture: Normal Chalino After 48 Hours. Final. 11/20/2019 Right Foot Tissue Aerobic Culture: Moderate Growth Enterobacter cloacae complex, S=Youssef Sensitive. Final. 11/20/2019 Right Foot Tissue Anaerobic Culture: No Anaerobic Growth at 2 Days. Final. 11/20/2019 Right Foot Bone Aerobic Culture: Light Growth Enterobacter Cloacae Complex, S=Youssef Sensitive. Final. 11/20/2019 Right Foot Bone Anaerobic Culture: No Anaerobic Growth at 2 Days. Final Date: 12/28/2019 New labs/ results as of last note: 12/21/2019 Labs unable to be drawn by Home Health nurse 12/25/2019 I have personally reviewed all labs and other results Labs: Current Culture: 12/21/2019 - Right foot, aerobic - normal chalino after 48 hours 12/21/2019 - Right foot, anaerobic: No anaerobic growth at 2 days. Update from previous note Current Antibiotics: Merrem 1,000 mg IV every 12 Hours until January 02, 2020 ([facility]) Previous Antibiotic: Rocephin 2 gm IV every 24 Hours Ancef 2,000 mg IV every 8 Hours Pre/Post Procedure Dressings: Per Dr. Mora Recent Cultures: 12/10/2019 Right Foot Wound Aerobic Culture: Normal Chal[place] After 48 Hours. Final 12/10/2019 Right foot wound, anaerobic culture: No anaerobic growth at 2 days. Final 12/08/2019 Urine Aerobic Culture: No Growth (<1,000 CFU/mL). Final. 12/07/2019 Urine Aerobic Culture on arrival to Nursing Rehab Unit: No Growth (<1,000 CFU/mL). Final. 12/02/2019 Right Foot Tissue Aerobic Culture: Normal Chalino After 48 Hours. Final. 12/02/2019 Right Foot Tissue AFB Culture: No Acid Fast Bacilli Seen. Preliminary. 12/02/2019 Right Foot Tissue Anaerobic Culture: No Anaerobic Growth at 2 Days. Final. 12/02/2019 Right Foot Tissue Fungus Culture: Fungal Culture in Progress. Preliminary. 12/01/2019 Blood Culture #1: No Growth After 5 Days. Final. 12/01/2019 Blood Culture #2: No Growth After 5 Days. Final. 11/30/2019 Right Foot Wound Aerobic Culture: Normal Chalino After 48 Hours. Final. 11/21/2019 Left Leg Wound Aerobic Culture: Normal Chalino After 48 Hours. Final. 11/20/2019 Right Foot Tissue Aerobic Culture: Moderate Growth Enterobacter cloacae complex, S=Youssef Sensitive. Final. 11/20/2019 Right Foot Tissue Anaerobic Culture: No Anaerobic Growth at 2 Days. Final. 11/20/2019 Right Foot Bone Aerobic Culture: Light Growth Enterobacter Cloacae Complex, S=Youssef Sensitive. Final. 11/20/2019 Right Foot Bone Anaerobic Culture: No Anaerobic Growth at 2 Days. Final Date: 12/21/2019 No new labs/ results as of last note: 12/18/2019 Update from previous note Current Antibiotics: Merrem 1,000 mg IV every 12 Hours until January 02, 2020 ([facility]) Previous Antibiotic: Rocephin 2 gm IV every 24 Hours Ancef 2,000 mg IV every 8 Hours Pre/Post Procedure Dressings: Per Dr. Mora Current Cultures: 12/10/2019 Right Foot Wound Aerobic Culture: Normal Chalino After 48 Hours. Final 12/10/2019 Right foot wound, anaerobic culture: No anaerobic growth at 2 days. Final 12/08/2019 Urine Aerobic Culture: No Growth (<1,000 CFU/mL). Final. 12/07/2019 Urine Aerobic Culture on arrival to Nursing Rehab Unit: No Growth (<1,000 CFU/mL). Final. 12/02/2019 Right Foot Tissue Aerobic Culture: Normal Chalino After 48 Hours. Final. 12/02/2019 Right Foot Tissue AFB Culture: No Acid Fast Bacilli Seen. Preliminary. 12/02/2019 Right Foot Tissue Anaerobic Culture: No Anaerobic Growth at 2 Days. Final. 12/02/2019 Right Foot Tissue Fungus Culture: Fungal Culture in Progress. Preliminary. 12/01/2019 Blood Culture #1: No Growth After 5 Days. Final. 12/01/2019 Blood Culture #2: No Growth After 5 Days. Final. 11/30/2019 Right Foot Wound Aerobic Culture: Normal Chalino After 48 Hours. Final. 11/21/2019 Left Leg Wound Aerobic Culture: Normal Chalino After 48 Hours. Final. 11/20/2019 Right Foot Tissue Aerobic Culture: Moderate Growth Enterobacter cloacae complex, S=Youssef Sensitive. Final. 11/20/2019 Right Foot Tissue Anaerobic Culture: No Anaerobic Growth at 2 Days. Final. 11/20/2019 Right Foot Bone Aerobic Culture: Light Growth Enterobacter Cloacae Complex, S=Youssef Sensitive. Final. 11/20/2019 Right Foot Bone Anaerobic Culture: No Anaerobic Growth at 2 Days. Final Date: 12/19/2019 No new labs/results as of last note Update from previous note Tmax: 98.5 Urine Output: 2400 Stool: X1 Current Antibiotics: Merrem 1,000 mg IV every 12 Hours until January 02, 2020 Previous Antibiotic: Rocephin 2 gm IV every 24 Hours Ancef 2,000 mg IV every 8 Hours Pre/Post Procedure Dressings: Per Dr. Mora I have personally reviewed the labs and results Test results Laboratory and Additional Data Reviewed: Labs to de drawn every Wednesday (CBC, CMP, Sed Rate, CRP) Current Cultures: 12/10/2019 Right Foot Wound Aerobic Culture: Normal Chalino After 48 Hours. Final 12/10/2019 Right foot wound, anaerobic culture: No anaerobic growth at 2 days. Final 12/08/2019 Urine Aerobic Culture: No Growth (<1,000 CFU/mL). Final. 12/07/2019 Urine Aerobic Culture on arrival to Nursing Rehab Unit: No Growth (<1,000 CFU/mL). Final. 12/02/2019 Right Foot Tissue Aerobic Culture: Normal Chalino After 48 Hours. Final. 12/02/2019 Right Foot Tissue AFB Culture: No Acid Fast Bacilli Seen. Preliminary. 12/02/2019 Right Foot Tissue Anaerobic Culture: No Anaerobic Growth at 2 Days. Final. 12/02/2019 Right Foot Tissue Fungus Culture: Fungal Culture in Progress. Preliminary. 12/01/2019 Blood Culture #1: No Growth After 5 Days. Final. 12/01/2019 Blood Culture #2: No Growth After 5 Days. Final. 11/30/2019 Right Foot Wound Aerobic Culture: Normal Chalino After 48 Hours. Final. 11/21/2019 Left Leg Wound Aerobic Culture: Normal Chalino After 48 Hours. Final. 11/20/2019 Right Foot Tissue Aerobic Culture: Moderate Growth Enterobacter cloacae complex, S=Youssef Sensitive. Final. 11/20/2019 Right Foot Tissue Anaerobic Culture: No Anaerobic Growth at 2 Days. Final. 11/20/2019 Right Foot Bone Aerobic Culture: Light Growth Enterobacter Cloacae Complex, S=Youssef Sensitive. Final. 11/20/2019 Right Foot Bone Anaerobic Culture: No Anaerobic Growth at 2 Days. Final Date: 12/18/2019 No new labs/results as of last note Update from previous note Tmax: 98.1 Urine Output: 3950 Stool: not recorded Current Antibiotics: Merrem 1,000 mg IV every 12 Hours Previous Antibiotic: Rocephin 2 gm IV every 24 Hours Ancef 2,000 mg IV every 8 Hours Pre/Post Procedure I have personally reviewed the labs and results Test results Laboratory and Additional Data Reviewed: Current Cultures: 12/10/2019 Right Foot Wound Aerobic Culture: Normal Chalino After 48 Hours. Final 12/10/2019 Right foot wound, anaerobic culture: No anaerobic growth at 2 days. Final 12/08/2019 Urine Aerobic Culture: No Growth (<1,000 CFU/mL). Final. 12/07/2019 Urine Aerobic Culture on arrival to Nursing Rehab Unit: No Growth (<1,000 CFU/mL). Final. 12/02/2019 Right Foot Tissue Aerobic Culture: Normal Chalino After 48 Hours. Final. 12/02/2019 Right Foot Tissue AFB Culture: No Acid Fast Bacilli Seen. Preliminary. 12/02/2019 Right Foot Tissue Anaerobic Culture: No Anaerobic Growth at 2 Days. Final. 12/02/2019 Right Foot Tissue Fungus Culture: Fungal Culture in Progress. Preliminary. 12/01/2019 Blood Culture #1: No Growth After 5 Days. Final. 12/01/2019 Blood Culture #2: No Growth After 5 Days. Final. 11/30/2019 Right Foot Wound Aerobic Culture: Normal Chalino After 48 Hours. Final. 11/21/2019 Left Leg Wound Aerobic Culture: Normal Chalino After 48 Hours. Final. 11/20/2019 Right Foot Tissue Aerobic Culture: Moderate Growth Enterobacter cloacae complex, S=Youssef Sensitive. Final. 11/20/2019 Right Foot Tissue Anaerobic Culture: No Anaerobic Growth at 2 Days. Final. 11/20/2019 Right Foot Bone Aerobic Culture: Light Growth Enterobacter Cloacae Complex, S=Youssef Sensitive. Final. 11/20/2019 Right Foot Bone Anaerobic Culture: No Anaerobic Growth at 2 Days. Final Date: 12/15/2019 New labs/results as of last note Update from previous note Tmax: 98.7 Urine Output: 1900 Stool: not recorded Current Antibiotics: Merrem 1,000 mg IV every 12 Hours Previous Antibiotic: Rocephin 2 gm IV every 24 Hours Ancef 2,000 mg IV every 8 Hours Pre/Post Procedure I have personally reviewed the labs and results Test results Laboratory and Additional Data Reviewed: Current Cultures: 12/10/2019 Right Foot Wound Aerobic Culture: Normal Chal[place] After 48 Hours. Final 12/10/2019 Right foot wound, anaerobic culture: No anaerobic growth at 2 days. Final 12/08/2019 Urine Aerobic Culture: No Growth (<1,000 CFU/mL). Final. 12/07/2019 Urine Aerobic Culture on arrival to Nursing Rehab Unit: No Growth (<1,000 CFU/mL). Final. 12/02/2019 Right Foot Tissue Aerobic Culture: Normal Chalino After 48 Hours. Final. 12/02/2019 Right Foot Tissue AFB Culture: No Acid Fast Bacilli Seen. Preliminary. 12/02/2019 Right Foot Tissue Anaerobic Culture: No Anaerobic Growth at 2 Days. Final. 12/02/2019 Right Foot Tissue Fungus Culture: Fungal Culture in Progress. Preliminary. 12/01/2019 Blood Culture #1: No Growth After 5 Days. Final. 12/01/2019 Blood Culture #2: No Growth After 5 Days. Final. 11/30/2019 Right Foot Wound Aerobic Culture: Normal Chalino After 48 Hours. Final. 11/21/2019 Left Leg Wound Aerobic Culture: Normal Chal[place] After 48 Hours. Final. 11/20/2019 Right Foot Tissue Aerobic Culture: Moderate Growth Enterobacter cloacae complex, S=Youssef Sensitive. Final. 11/20/2019 Right Foot Tissue Anaerobic Culture: No Anaerobic Growth at 2 Days. Final. 11/20/2019 Right Foot Bone Aerobic Culture: Light Growth Enterobacter Cloacae Complex, S=Youssef Sensitive. Final. 11/20/2019 Right Foot Bone Anaerobic Culture: No Anaerobic Growth at 2 Days. Final Date: 12/14/2019 New labs/ results as of last note: 12/12/2019 T-Max: 98.6 Output: Urine 2150 ml Stool not recorded Current Antibiotics: Merrem 1,000 mg IV every 12 Hours Previous Antibiotic: Rocephin 2 gm IV every 24 Hours Ancef 2,000 mg IV every 8 Hours Pre/Post Procedure I have personally reviewed the labs and results Test results Laboratory and Additional Data Reviewed: Current Cultures: 12/10/2019 Right Foot Wound Aerobic Culture: Normal Chal[place] After 48 Hours. Final 12/10/2019 Right foot wound, anaerobic culture: No anaerobic growth at 2 days. Final 12/08/2019 Urine Aerobic Culture: No Growth (<1,000 CFU/mL). Final. 12/07/2019 Urine Aerobic Culture on arrival to Nursing Rehab Unit: No Growth (<1,000 CFU/mL). Final. 12/02/2019 Right Foot Tissue Aerobic Culture: Normal Chalino After 48 Hours. Final. 12/02/2019 Right Foot Tissue AFB Culture: No Acid Fast Bacilli Seen. Preliminary. 12/02/2019 Right Foot Tissue Anaerobic Culture: No Anaerobic Growth at 2 Days. Final. 12/02/2019 Right Foot Tissue Fungus Culture: Fungal Culture in Progress. Preliminary. 12/01/2019 Blood Culture #1: No Growth After 5 Days. Final. 12/01/2019 Blood Culture #2: No Growth After 5 Days. Final. 11/30/2019 Right Foot Wound Aerobic Culture: Normal Chalino After 48 Hours. Final. 11/21/2019 Left Leg Wound Aerobic Culture: Normal [place] After 48 Hours. Final. 11/20/2019 Right Foot Tissue Aerobic Culture: Moderate Growth Enterobacter cloacae complex, S=Youssef Sensitive. Final. 11/20/2019 Right Foot Tissue Anaerobic Culture: No Anaerobic Growth at 2 Days. Final. 11/20/2019 Right Foot Bone Aerobic Culture: Light Growth Enterobacter Cloacae Complex, S=Youssef Sensitive. Final. 11/20/2019 Right Foot Bone Anaerobic Culture: No Anaerobic Growth at 2 Days. Final Update from previous note Date: 12/12/2019 New labs/results as of last note Update from previous note Tmax: 99.2 Urine Output: 1600 Stool: not recorded Current Antibiotics: Merrem 1,000 mg IV every 12 Hours Previous Antibiotic: Rocephin 2 gm IV every 24 Hours Ancef 2,000 mg IV every 8 Hours Pre/Post Procedure I have personally reviewed the labs and results Test results Laboratory and Additional Data Reviewed: Labs: CMP 12/12/2019 06:11 Glucose: 167 BUN: 26 Creatinine: 0.89 Sodium: 140 Potassium: 4.3 Total Protein: 6.7 Albumin: 2.5 Alk Phos: 83 AST: 35 ALT: 52 Total Bilirubin: 0.3 CBC 12/12/2019 06:11 WBC: 4.12 RBC: 4.13 Hgb: 10.8 Hct: 35.6 Platelets: 203 Lymphocytes Abs: 0.66 CRP 12/12/2019 06:11 52.4 Current Cultures: 12/10/2019 Right Foot Wound Aerobic Culture: Normal Chalino After 24 Hours. Preliminary. 12/08/2019 Urine Aerobic Culture: No Growth (<1,000 CFU/mL). Final. 12/07/2019 Urine Aerobic Culture on arrival to Nursing Rehab Unit: No Growth (<1,000 CFU/mL). Final. 12/02/2019 Right Foot Tissue Aerobic Culture: Normal [place] After 48 Hours. Final. 12/02/2019 Right Foot Tissue AFB Culture: No Acid Fast Bacilli Seen. Preliminary. 12/02/2019 Right Foot Tissue Anaerobic Culture: No Anaerobic Growth at 2 Days. Final. 12/02/2019 Right Foot Tissue Fungus Culture: Fungal Culture in Progress. Preliminary. 12/01/2019 Blood Culture #1: No Growth After 5 Days. Final. 12/01/2019 Blood Culture #2: No Growth After 5 Days. Final. 11/30/2019 Right Foot Wound Aerobic Culture: Normal Chalino After 48 Hours. Final. 11/21/2019 Left Leg Wound Aerobic Culture: Normal [place] After 48 Hours. Final. 11/20/2019 Right Foot Tissue Aerobic Culture: Moderate Growth Enterobacter cloacae complex, S=Youssef Sensitive. Final. 11/20/2019 Right Foot Tissue Anaerobic Culture: No Anaerobic Growth at 2 Days. Final. 11/20/2019 Right Foot Bone Aerobic Culture: Light Growth Enterobacter Cloacae Complex, S=Youssef Sensitive. Final. 11/20/2019 Right Foot Bone Anaerobic Culture: No Anaerobic Growth at 2 Days. Final. Date: 12/11/2019 New labs/results as of last note Update from previous note Tmax: 98.7 Urine Output: 2500 Stool: X1 Current Antibiotics: Rocephin 2 gm IV every 24 Hours until 01/02/2020 Previous Antibiotic: Ancef 2,000 mg IV every 8 Hours Pre/Post Procedure I have personally reviewed the labs and results Test results Laboratory and Additional Data Reviewed: U/A 12/08/2019 Glucose: 150 Blood: Small WBC: 7 Bacteria: Rare Labs: Vitamin D, Total 12/07/2019 04:55 16 B12/Folate 12/07/2019 04:55 B12: 828 Folate: >20.0 Ferritin 12/07/2019 04:55 211 Iron 12/07/2019 04:55 30 CMP 12/07/2019 04:55 Glucose: 243 BUN: 17 Creatinine: 0.86 Sodium: 138 Potassium: 3.9 Total Protein: 6.6 Albumin: 2.4 Alk Phos: 76 AST: 28 ALT: 40 Total Bilirubin: 0.4 CBC 12/07/2019 04:54 WBC: 6.95 Hgb: 11.3 Hct: 36.8 Platelets: 210 Lymphocytes Abs: 0.64 CRP 12/05/2019 07:58 85.3 U/A 12/07/2019 Protein: 30 Glucose: >=500 Blood: Small Leukocyte Esterase: Trace Renal Epithelial: <1 Current Cultures: 12/10/2019 Right Foot Wound Aerobic Culture: Rare WBC. Rare Epithelial Cells. No Organisms Seen. Preliminary. 12/08/2019 Urine Aerobic Culture: No Growth (<1,000 CFU/mL). Final. 12/07/2019 Urine Aerobic Culture on arrival to Nursing Rehab Unit: No Growth (<1,000 CFU/mL). Final. 12/02/2019 Right Foot Tissue Aerobic Culture: Normal Chalino After 48 Hours. Final. 12/02/2019 Right Foot Tissue AFB Culture: No Acid Fast Bacilli Seen. Preliminary. 12/02/2019 Right Foot Tissue Anaerobic Culture: No Anaerobic Growth at 2 Days. Final. 12/02/2019 Right Foot Tissue Fungus Culture: Fungal Culture in Progress. Preliminary. 12/01/2019 Blood Culture #1: No Growth After 5 Days. Final. 12/01/2019 Blood Culture #2: No Growth After 5 Days. Final. 11/30/2019 Right Foot Wound Aerobic Culture: Normal [place] After 48 Hours. Final. 11/21/2019 Left Leg Wound Aerobic Culture: Normal [place] After 48 Hours. Final. 11/20/2019 Right Foot Tissue Aerobic Culture: Moderate Growth Enterobacter cloacae complex, S=Youssef Sensitive. Final. 11/20/2019 Right Foot Tissue Anaerobic Culture: No Anaerobic Growth at 2 Days. Final. 11/20/2019 Right Foot Bone Aerobic Culture: Light Growth Enterobacter Cloacae Complex, S=Youssef Sensitive. Final. 11/20/2019 Right Foot Bone Anaerobic Culture: No Anaerobic Growth at 2 Days. Final. Date: 12/08/2019 New labs/results as of last note Update from previous note Tmax: 99.2 Urine Output: 4950 Stool: not recorded Current Antibiotics: Rocephin 2 gm IV every 24 Hours until 01/02/2020 Previous Antibiotic: Ancef 2,000 mg IV every 8 Hours Pre/Post Procedure I have personally reviewed the labs and results Test results Laboratory and Additional Data Reviewed: U/A 12/08/2019 Glucose: 150 Blood: Small WBC: 7 Bacteria: Rare Labs: Vitamin D, Total 12/07/2019 04:55 16 B12/Folate 12/07/2019 04:55 B12: 828 Folate: >20.0 Ferritin 12/07/2019 04:55 211 Iron 12/07/2019 04:55 30 CMP 12/07/2019 04:55 Glucose: 243 BUN: 17 Creatinine: 0.86 Sodium: 138 Potassium: 3.9 Total Protein: 6.6 Albumin: 2.4 Alk Phos: 76 AST: 28 ALT: 40 Total Bilirubin: 0.4 CBC 12/07/2019 04:54 WBC: 6.95 Hgb: 11.3 Hct: 36.8 Platelets: 210 Lymphocytes Abs: 0.64 CRP 12/05/2019 07:58 85.3 U/A 12/07/2019 Protein: 30 Glucose: >=500 Blood: Small Leukocyte Esterase: Trace Renal Epithelial: <1 Current Cultures: 12/07/2019 Urine Aerobic Culture on arrival to Nursing Rehab Unit: No Growth, Incubation Continued.Preliminary. 12/02/2019 Right Foot Tissue Aerobic Culture: Normal Chalino After 48 Hours. Final. 12/02/2019 Right Foot Tissue AFB Culture: No Acid Fast Bacilli Seen. Preliminary. 12/02/2019 Right Foot Tissue Anaerobic Culture: No Anaerobic Growth at 2 Days. Final. 12/02/2019 Right Foot Tissue Fungus Culture: Fungal Culture in Progress. Preliminary. 12/01/2019 Blood Culture #1: No Growth After 5 Days. Final. 12/01/2019 Blood Culture #2: No Growth After 5 Days. Final. 11/30/2019 Right Foot Wound Aerobic Culture: Normal Chalino After 48 Hours. Final. 11/21/2019 Left Leg Wound Aerobic Culture: Normal Chalino After 48 Hours. Final. 11/20/2019 Right Foot Tissue Aerobic Culture: Moderate Growth Enterobacter cloacae complex, S=Youssef Sensitive. Final. 11/20/2019 Right Foot Tissue Anaerobic Culture: No Anaerobic Growth at 2 Days. Final. 11/20/2019 Right Foot Bone Aerobic Culture: Light Growth Enterobacter Cloacae Complex, S=Youssef Sensitive. Final. 11/20/2019 Right Foot Bone Anaerobic Culture: No Anaerobic Growth at 2 Days. Final. Radiology: Left Ankle X-Ray 12/07/2019 1. A new screw internally fixes the base of the 5th metatarsal to near anatomic alignment, however this screw is broken/fractured. 2. 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 Lateral subluxation of the 2nd through 5th metatarsal bases is again noted, as well as pes planus deformity. 3. Milder arthritis is noted in the tibiotalar joint and subtalar joint. 4. Large calcaneal enthesophytes are noted at the insertion sites of the plantar fascia and Achilles tendon. 5. No acute fracture, or other acute bony abnormality is seen. Date: 12/07/2019 New labs/results as of last note Update from previous note Tmax: 99.1 Urine Output: 1800 Stool: not recorded Current Antibiotics: Rocephin 2 gm IV every 24 Hours until 01/02/2020 Previous Antibiotic: Ancef 2,000 mg IV every 8 Hours Pre/Post Procedure I have personally reviewed the labs and results Test results Laboratory and Additional Data Reviewed: Labs: Vitamin D, Total 12/07/2019 04:55 16 B12/Folate 12/07/2019 04:55 B12: 828 Folate: >20.0 Ferritin 12/07/2019 04:55 211 Iron 12/07/2019 04:55 30 CMP 12/07/2019 04:55 Glucose: 243 BUN: 17 Creatinine: 0.86 Sodium: 138 Potassium: 3.9 Total Protein: 6.6 Albumin: 2.4 Alk Phos: 76 AST: 28 ALT: 40 Total Bilirubin: 0.4 CBC 12/07/2019 04:54 WBC: 6.95 Hgb: 11.3 Hct: 36.8 Platelets: 210 Lymphocytes Abs: 0.64 CRP 12/05/2019 07:58 85.3 U/A 12/07/2019 Protein: 30 Glucose: >=500 Blood: Small Leukocyte Esterase: Trace Renal Epithelial: <1 Current Cultures: 12/02/2019 Right Foot Tissue Aerobic Culture: Normal Chalino After 48 Hours. Final. 12/02/2019 Right Foot Tissue AFB Culture: No Acid Fast Bacilli Seen. Preliminary. 12/02/2019 Right Foot Tissue Anaerobic Culture: No Anaerobic Growth at 2 Days. Final. 12/02/2019 Right Foot Tissue Fungus Culture: Fungal Culture in Progress. Preliminary. 12/01/2019 Blood Culture #1: No Growth After 5 Days. Final. 12/01/2019 Blood Culture #2: No Growth After 5 Days. Final. 11/30/2019 Right Foot Wound Aerobic Culture: Normal Chalino After 48 Hours. Final. 11/21/2019 Left Leg Wound Aerobic Culture: Normal Chalino After 48 Hours. Final. 11/20/2019 Right Foot Tissue Aerobic Culture: Moderate Growth Enterobacter cloacae complex, S=Youssef Sensitive. Final. 11/20/2019 Right Foot Tissue Anaerobic Culture: No Anaerobic Growth at 2 Days. Final. 11/20/2019 Right Foot Bone Aerobic Culture: Light Growth Enterobacter Cloacae Complex, S=Youssef Sensitive. Final. 11/20/2019 Right Foot Bone Anaerobic Culture: No Anaerobic Growth at 2 Days. Final. Date: 12/06/2019 New labs/results as of last note Update from previous note Tmax: 99 Urine Output: 1250 Stool: not recorded Current Antibiotics: Rocephin 2 gm IV every 24 Hours until 01/02/2020 Previous Antibiotic: Ancef 2,000 mg IV every 8 Hours Pre/Post Procedure I have personally reviewed the labs and results Test results Laboratory and Additional Data Reviewed: Labs: CBC 12/05/2019 07:58 WBC: 7.98 Hgb: 11.4 Hct: 36.3 Platelets: 228 Lymphocytes Abs: 0.52 CMP 12/05/2019 07:58 Glucose: 223 BUN: 19 Creatinine: 0.86 Sodium: 139 Potassium: 4.1 Total Protein: 6.4 Albumin: 2.4 Alk Phos: 75 AST: 20 ALT: 31 Total Bilirubin: 0.4 CRP 12/05/2019 07:58 85.3 Current Cultures: 12/02/2019 Right Foot Tissue Aerobic Culture: Normal Chalino After 48 Hours. Final. 12/02/2019 Right Foot Tissue AFB Culture: No Acid Fast Bacilli Seen. Preliminary. 12/02/2019 Right Foot Tissue Anaerobic Culture: No Anaerobic Growth at 2 Days. Final. 12/02/2019 Right Foot Tissue Fungus Culture: Fungal Culture in Progress. Preliminary. 12/01/2019 Blood Culture #1: No Growth After 5 Days. Final. 12/01/2019 Blood Culture #2: No Growth After 5 Days. Final. 11/30/2019 Right Foot Wound Aerobic Culture: Normal Chalino After 48 Hours. Final. 11/21/2019 Left Leg Wound Aerobic Culture: Normal Chalino After 48 Hours. Final. 11/20/2019 Right Foot Tissue Aerobic Culture: Moderate Growth Enterobacter cloacae complex, S=Youssef Sensitive. Final. 11/20/2019 Right Foot Tissue Anaerobic Culture: No Anaerobic Growth at 2 Days. Final. 11/20/2019 Right Foot Bone Aerobic Culture: Light Growth Enterobacter Cloacae Complex, S=Youssef Sensitive. Final. 11/20/2019 Right Foot Bone Anaerobic Culture: No Anaerobic Growth at 2 Days. Final. Pathology: 12/02/2019 A. Soft tissue, Right Foot, excision: Non-specific ulcer. Date: 12/05/2019 New labs/results as of last note Update from previous note Tmax: 98.8 Urine Output: 2900 Stool: not recorded Current Antibiotics: Rocephin 2 gm IV every 24 Hours Previous Antibiotic: Ancef 2,000 mg IV every 8 Hours Pre/Post Procedure I have personally reviewed the labs and results Test results Laboratory and Additional Data Reviewed: Labs: CBC 12/05/2019 07:58 WBC: 7.98 Hgb: 11.4 Hct: 36.3 Platelets: 228 Lymphocytes Abs: 0.52 CMP 12/05/2019 07:58 Glucose: 223 BUN: 19 Creatinine: 0.86 Sodium: 139 Potassium: 4.1 Total Protein: 6.4 Albumin: 2.4 Alk Phos: 75 AST: 20 ALT: 31 Total Bilirubin: 0.4 CRP 12/05/2019 07:58 85.3 Current Cultures: 12/02/2019 Right Foot Tissue Aerobic Culture: Normal Chalino After 48 Hours. Final. 12/02/2019 Right Foot Tissue AFB Culture: No Acid Fast Bacilli Seen. Preliminary. 12/02/2019 Right Foot Tissue Anaerobic Culture: No Anaerobic Growth at 2 Days. Final. 12/02/2019 Right Foot Tissue Fungus Culture: Fungal Culture in Progress. Preliminary. 12/01/2019 Blood Culture #1: No Growth After 48 Hours. Preliminary. 12/01/2019 Blood Culture #2: No Growth After 48 Hours. Preliminary. 11/30/2019 Right Foot Wound Aerobic Culture: Normal Chalino After 48 Hours. Final. 11/21/2019 Left Leg Wound Aerobic Culture: Normal Chalino After 48 Hours. Final. 11/20/2019 Right Foot Tissue Aerobic Culture: Moderate Growth Enterobacter cloacae complex, S=Youssef Sensitive. Final. 11/20/2019 Right Foot Tissue Anaerobic Culture: No Anaerobic Growth at 2 Days. Final. 11/20/2019 Right Foot Bone Aerobic Culture: Light Growth Enterobacter Cloacae Complex, S=Youssef Sensitive. Final. 11/20/2019 Right Foot Bone Anaerobic Culture: No Anaerobic Growth at 2 Days. Final. Current Antibiotics: Rocephin 2 gm IV every 24 Hours Previous Antibiotic: Ancef 2,000 mg IV every 8 Hours Pre/Post Procedure I have personally reviewed the labs and results Test results Laboratory and Additional Data Reviewed: Results from last 7 days Lab Units 12/01/19 0648 11/30/19 1245 11/29/19 0655 SODIUM mmol/L 140 140 142 POTASSIUM mmol/L 5.0 4.9 5.1 CHLORIDE mmol/L 106 105 107 BUN mg/dL 22 24 36* CREATININE mg/dL 0.98 0.94 1.12 GLUCOSE mg/dL 223* 127* 108* CALCIUM mg/dL 9.1 9.3 9.3 Results from last 7 days Lab Units 12/01/19 0635 11/30/19 1245 WBC K/mcL 8.56 8.72 HGB g/dL 11.2* 10.8* HCT % 35.6* 35.4* PLT K/mcL 232 243 Results from last 7 days Lab Units 11/30/19 1245 ALK PHOS U/L 67 BILIRUBIN TOTAL mg/dL 0.3 TOTAL PROTEIN g/dL 6.5 ALTR U/L 56 AST U/L 42 Current Cultures: 12/02/2019 Right Foot Tissue Aerobic Culture: Normal Chalino After 24 Hours. Preliminary. 12/02/2019 Right Foot Tissue AFB Culture: No Acid Fast Bacilli Seen. Preliminary. 12/01/2019 Blood Culture #1: No Growth After 48 Hours. Preliminary. 12/01/2019 Blood Culture #2: No Growth After 48 Hours. Preliminary. 11/30/2019 Right Foot Wound Aerobic Culture: Normal Chalino After 48 Hours. Final. 11/21/2019 Left Leg Wound Aerobic Culture: Normal Chalino After 48 Hours. Final. 11/20/2019 Right Foot Tissue Aerobic Culture: Moderate Growth Enterobacter cloacae complex, S=Youssef Sensitive. Final. 11/20/2019 Right Foot Tissue Anaerobic Culture: No Anaerobic Growth at 2 Days. Final. 11/20/2019 Right Foot Bone Aerobic Culture: Light Growth Enterobacter Cloacae Complex, S=Youssef Sensitive. Final. 11/20/2019 Right Foot Bone Anaerobic Culture: No Anaerobic Growth at 2 Days. Final. Recent Cultures: 05/30/2019 Right Foot Tissue Aerobic Culture: Normal Chalino After 48 Hours. Final. 05/30/2019 Right Foot Tissue Anaerobic Culture: No Anaerobic Growth at 2 Days. Final. 03/23/2019 Right Foot Wound Aerobic Culture: Heavy Growth Raoultella [place], R=Ampicillin, S=Remainder of panel. 03/09/2019 Right Foot Wound Aerobic Culture: Normal Chalino After 48 Hours. Final. 02/09/2019 Right Foot Wound Aerobic Culture: Normal Chalino After 48 Hours. Final. 01/19/2019 Right Toe Two Wound Aerobic Culture: Heavy Growth Enterobacter Cloacae Complex, S=Youssef Sensitive. Final. Radiology: Right Foot X-Ray 12/02/2019 Intraoperative fluoroscopy provided. Severe bony deformity of the foot as described. Please correlate with operative note. Chest X-Ray 11/23/2019 1. Right arm PICC line in place with tip in superior vena cava. 2. No acute pulmonary disease. 3. Cardiomegaly with evidence of prior open heart surgery. 4. No acute osseous abnormality Right Foot X-Ray 11/20/2019 IMPRESSION: Intraoperative fluoroscopy for localization during right foot and ankle reconstruction and fixation. Please see operative report for details. Left Ankle X-Ray Ordered 11/20/2019 Right Foot X-Ray 11/20/2019 FINDINGS: Two views of the right foot were obtained. There are advanced changes of Charcot arthropathy throughout the right midfoot which appears similar compared to prior examination. There are postsurgical changes of resection of the right 2nd toe proximal phalangeal head. IMPRESSION: 1. Advanced changes of Charcot arthropathy throughout the right midfoot which appear unchanged compared to prior examination. Chest AP/PA X-Ray 11/16/2019 1. No acute pulmonary disease. 2. Cardiomegaly, with evidence of prior open heart surgery. 3. Multilevel degenerative changes of the thoracic spine. MR Right Foot 05/19/2019 1. There is a superficial soft tissue ulcer again seen along the plantar aspect of the midfoot, butthere is no evidence of abscess or osteomyelitis in this region. 2. Stable appearance of the sequela of severe neuropathic arthropathy of the midfoot with collapse of the midfoot again seen resulting in a rocker bottom deformity. 3. A moderate amount of diffuse subcutaneous edema along the dorsum of the foot may be due to reactive edema or a cellulitis, but this is nonspecific. Right Foot X-Ray 04/28/2019 1. Soft tissue irregularity involving the plantar aspect of the foot likely representing the reported ulcer. No bony destruction to suggest osteomyelitis. 2. No evidence of radiopaque foreign body. 3. Stable deformity and degenerative changes involving the midfoot. Findings are consistent with Charcot joint. NM White Cell Scan Spot Limited 03/08/2017 FINDINGS: A focal area of intense abnormal white blood cell migration is noted central plantar aspect of the right foot corresponding to the area of the wound demonstrated radiographically. No other focus of white blood cell migration abnormality is evident within the right or left foot. IMPRESSION: Focal area of abnormal white blood cell migration at the plantar aspect central right foot may be at the wound itself or may be involving the bone with associated fracture as demonstrated radiographically. Anatomic detail is insufficient for differentiation between the two. Renal U/S 03/07/2017 IMPRESSION: Severe thickening of the urinary bladder wall. This could be due to outlet obstruction with hypertrophy of the wall. If there is no such history, this should be evaluated with cystoscopy. CVPS: Arterial Doppler: not on file Venous Doppler: not on file 2D Echo 11/23/2019 Moderate LV enlargement with LVH. Global systolic dysfunction with segmental features. LVEF 30% Elevated LV filling pressures RV is dilated with severe RV dysfunction Mild mitral annular calcification, mild thickening of the aortic valve without hemodynamically significant valvular disease There is a atrial level right to left shunt identified with saline contrast with free breathing andValsalva most likely via PFO LVEF unchanged from to previous echo from 2017 Surgeries: Please see above for surgical history Procedure: Right Foot I&D ADJUSTMENT EXTERNAL FIXATOR Date: 12/02/2019 Surgery: Alena Mora DPM Procedure: RIGHT FOOT RECONSTRUCTION WITH APPLICATION OF CIRCULAR STATIC EXTERNAL FIXATION Date: 11/20/2019 Surgeon: Alena Mora DPM Procedure: ARTHROPLASTY 2ND TOE RIGHT FOOT Date: 01/25/2019 Surgeon: Rosa M Robles DPM Pathology: not on file documented in this encounter* Alena Mora DPM - 02/16/2020 9:01 AM EDT Subjective: Patient is a pleasant 59-year-old male who presents to the wound care center for his 12.5 weeks follow-up evaluation status post right midfoot wedge resection and application of external fixator for Charcot reconstruction (date of surgery 11/20/2019). Patient states that he has been doing well. Patient states that he has been nonweightbearing as instructed to the right lower extremity. He states that the nursing staff has been changing his dressing as instructed. No new pedal complaints.Denies fevers, chills, nausea, vomiting, chest pain, shortness of breath, or any other constitutional symptoms. Objective: Vascular: DP and PT pulses are palpable 2/4. Cap refill time is brisk to distal digits. Skin temperature is warm to warm from proximal tibial tuberosity to distal digits. +1 pitting edema noted to the right foot. Neuro: Gross sensation is intact. Protective sensation is absent. Dermatologic: The right foot plantar surgical incision site is well healed. The previous central medial dehiscence has also healed. No appreciable drainage noted. All pin sites are intact with no surrounding erythema, edema, drainage, with exception of the most proximal medial two pins. The external fixation device is intact. No loosening of pins or wires. The previously noted blister on the distal tuft of the right great toe has healed. A partial thickness ulceration noted to right 3rd toe secondary to blister has resolved. No sign of infection. Musculoskeletal: Patient is able to wiggle digits. Compartments are soft and compressible. No calf pain. Assessment: 12.5 weeks status post right midfoot wedge resection and application of external fixator for Charcot reconstruction (Date of surgery 11/20/2019 -Dr. Mora). Charcot arthropathy, midfoot, right foot Diabetes with peripheral neuropathy Hemorrhagic blister, right great toe --> deep tissue injury --> a loose eschar --> subcutaneous ulceration -->healed Dehiscence to central incision site --> down to subcutaneous layer --> healed Retained orthopedic hardware, Loose pin, removed Blister 3rd toe, right foot - resolved Plan: Patient was seen and evaluated. Discussed all clinical findings. Patient is doing well overall. Prior radiographs of the right foot were evaluated. Good alignment noted within the midfoot with closure of the midfoot wedge and recreation of the medial longitudinal arch. Good alignment of the hindfoot given the severity of his charcot deformity. New radiographs were ordered today. No debridement was performed today. All pins were cleansed with alcohol was applied to all pins at the skin interface. A 6 inch Zechariah bandage was then applied around the external fixator construct. Patient is to keep nonweightbearing to the right lower extremity at all times. He is to keep everything clean and dry. Patient will return to my office on Wednesday for removal of external fixator contruct All questions were answered to satisfaction. Patient is to return to clinic in 1 week for follow-up evaluation Alena Mora DPM documented in this encounter* Richelle Chance RN - 02/16/2020 9:46 AM EDT Gloves and mask worn while in room with patient * Maria Isabel Awad MD - 02/16/2020 9:31 AM EDT 12/04/2019 Patient Name: Dyllan Huertas Admit Date: MR #: [id number] : 1960 Physicians: Rohit Aguilar MD (Family); No ref. provider found (Referring) Assessment and Plan: Number 1 November [id number] Impression Right foot ulcer status post surgical intervention Severe Charcot deformity status post surgical intervention Enterobacter cloaca infection and gram-negative infection see cultures below RataylaTela which is a gram-negative Acute osteomyelitis bone culture on 11/20/2019+ for the same pathogen that was present in January 2019is Enterobacter cloaca pansensitive RAJINDER none on chart 11/24/2019 Osteomyelitis as bone culture is positive from 11/20/2019 for Enterobacter cloaca 11/30/2019 New drainage from the pin site Elevated sed rate Elevated CRP Osteomyelitis right foot 12/01/2019 Osteomyelitis right foot Delayed healing of the plantar foot postop wound Cellulitis of the foot 12/04/2019 Status post surgical intervention with incision and drainage by Dr. Mora on 12/02/2019 cultures now with normal chalino AFB and fungus negative 12/05/2019 Sed rate 85 CRP 85 Per rehab physician there is a risk for the left ankle issues especially with diabetic neuropathy in the left foot and he has had right foot surgery 12/06/2019 OR cultures negative elevated CRP could be just postop We will continue IV antibiotics as planned till January 01 Rocephin 2 g every 24 hours 12/11/2019 Right foot wound with some maceration drainage 12/12/2019 CRP improving 12/21/2019 Patient is home now last night he was having difficulty flushing the line PICC line not functioning well because the picc team Plantar foot wound no cellulitis no maceration pin sites look excellent 2019 Right foot wound postop healing remarkably cellulitis improved Patient completing treatment for acute osteomyelitis Enterobacter infection Minimal drainage at the incision site will culture today January 12, 2020 Right second toe and great toe superficial ulceration present Right plantar foot wound excellent with almost healing no drainage no redness Sed rate 33 last CRP 6.4 12/28/2019 much better than before last culture normal chalino from December 27 January 19, 2020 Osteomyelitis right foot Charcot with correction surgery done Postop wound with delayed healing January 26, 2020 Postop right plantar wound continues to improve Last culture normal chalino on December 27 last lab work was December 27 CRP 6.5 We will do CBC CMP sed rate CRP at next visit in the wound clinic orders are in the computer from I will see him in 2 weeks February 09, 2020 Patient almost completing 3 months of total antibiotic treatment was on antibiotics prior to that also Plantar foot postop wound has not healed up completely yet being debrided periodically by podiatry Plain x-ray was done on January 12, 2020 I looked at the film still shows significant destruction I do not know if you are seeing any fusion yet I will need to talk with podiatry on that CBC CMP sed rate CRP has been ordered results are still pending this is to decide the duration of antibiotic treatment February 16, 2020 Plantar foot wound is healed up completely CRP is normal Sed rate fluctuating some No evidence of cellulitis Plan February 16, 2020 Doxycycline 100 mg p.o. daily till June 03 which is 6 months he may need to go up to 1 year because he did have prolonged infection with osteomyelitis of the right foot details per my previous dictation He has enough supply for now at least till the next visit Patient's external fixator to come out next week Return to see myself and Dr. Mora in the wound clinic in 2 weeks I have discussed with podiatry February 09, 2020 CBC CMP sed rate CRP today Doxycycline 100 mg p.o. daily suppressive treatment continued at least till March 03 for now I may need to go if I decide up to 6 months it would be till June 03 And if it is 1 year it will be till November 2020 It all depends on what podiatry sees on the x-rays and discusses with me what the rec needs would be I will discuss with Dr. Mora Return to see me and Dr. Mora in 2 weeks January 26, 2020 Doxycycline 100 mg p.o. once a day suppressive treatment Local dressings per Dr. Mora The least I would consider continuing the doxycycline would be up to February [address] Mora January 19, 2020 Patient has received 6 weeks of IV antibiotics Followed by 2 weeks of oral antibiotic Will decrease doxycycline to 100 mg p.o. once a day Dressings per Dr. Mora Revisit next week I have discussed with Dr. Mora January 12, 2020 Discontinue PICC line was done on January 01 Discontinue IV meropenem Doxycycline 100 g p.o. twice daily for 2 months I will give 30 days with 1 refill Local dressings per Dr. Mora Revisit 2 weeks for me with Dr. Mora 12/28/2019 Meropenem 1 g IV twice daily till January 01 which will be 6 weeks of treatment Labs could not be drawn at home because of difficulty for peripheral draw I did not want him to drive from the line because of risk of clotting We will draw them here today After that we will give him doxycycline 100 mg p.o. twice daily for 6 weeks to make 3 months treatment 12/21/2019 IV meropenem 1 g twice daily till January 01 Picc team to evaluate the PICC line consider another midline if needed Revisit 3 weeks for me 12/18/2019 OPAT referral IV meropenem 1 g every 12 till January 01 Home IV antibiotic by [facility] Any dressing orders would be per Dr. Mora CBC CMP sed rate CRP every Wednesday12/14/2019 and 12/15/2019 Continue IV meropenem till January 01 if he can manage to do that Await a picture by podiatry upon dressing change today I have discussed with podiatry Will plan for CBC CMP sed rate CRP next week 12/12/2019 Patient tolerating the meropenem Will await Dr. Mora to check the dressing on the wound at her next rounds Discontinue Rocephin Start meropenem 1 g IV every 12 for the Enterobacter and the other gram-negative that he had seen in the cultures especially with the extensive surgery that was done and he had some drainage on the weekend Continue IV antibiotics till January 01 CBC CMP sed rate CRP Will discuss with Dr. Lopez and Dr. Mora 12/08/2019 Rocephin continued till January 01 Urinary retention to be evaluated by Dr. Lopez Will await for Dr. Mora to do the dressings 12/07/2019 Rocephin 2 g IV 24 hours till January 01 Discontinue Schulte catheter CBC CMP sed rate CRP on Wednesday12/06/2019 Rocephin 2 g to 24 hours till January 01 CBC CMP sed rate CRP periodically Transfer to rehab he has been accepted Will follow the patient in rehab with Dr. Lopez and Dr. Mora 12/05/2019 Rocephin 2 g IV 24 hours continue till January 01 because of the second surgery Elevated sed rate CRP will be followed Await transfer to rehab if approved and bed available 12/04/2019 Rocephin 2 g IV every 24 hours CBC CMP sed rate CRP Rehab referral with Dr. Lopez here if possible We will discuss with podiatry I have discussed with hospitalist OR cultures normal chalino negative AFB and fungus Blood cultures negative so far 12/01/2019 Continue Rocephin till further cultures available CBC CMP sed rate CRP Blood cultures x2 half an hour apart He did bleed well even in the wound clinic yesterday at some point will order arterial Dopplers I have discussed with podiatry at length 11/30/2019 Culture the pin site that is bleeding and draining Follow-up CBC Liver function test Rocephin 2 g IV every 24 hours continue till December 18 May need to go up to additional 2 weeks afterMar which will be January 01 we will decide based on lab results and clinical response If the culture of the pin site shows any additional pathogens may need to readmit for additional IVantibiotics and streamlining treatment Revisit 1 week both I have discussed with podiatry Chief Complaint/Reason for Visit: I am seeing this patient at the request of Dr. Boogie Phan MD. I have reviewed the current hospital record, available laboratory, cardiology and imaging studies as well as available out patient records. History of Present Illness: Admission H&P by Boogie Phan MD on 11/30/2019: Dyllan Huertas is a 59 y.o. male presenting from home with h/o diabetes on disability since 2014 related to a Charcot foot and diabetes developed an ulcer in the beginning of 2018 was being followed by Dr. Robles at the office we have cultures from last year in January with Enterobacter and since then culture with gram-negative bacteria also was seen by Dr. Mora was found to have severe Charcot a corrective surgery was done with placement of an external fixator on 11/20. Today at wound clinic follow up was found to have increased drainage from one of the pin sites, being admitted for continued IV ATB and possible OR/ exploration in am. Exam: Tmax: 99 Urine Output: 2000 Stool: not recorded PACU Vitals 02/16/20 0840 BP: 125/78 Pulse: 84 Resp: 18 Temp: 97.6 F (36.4 C) SpO2: 95% Allergies: no known allergies. Current Outpatient Medications: alteplase (CATH AMANDO) 2 mg injection, Instill 2mL into clotted IV line as needed for brake liner. May repeat as needed. Do not use on Peripheral or Midlines ., Disp: 2 mL, Rfl: 52 calcium carbonate 400 mg Chew, Chew and Swallow 1,000 mg daily ., Disp: , Rfl: carvediloL (COREG) 12.5 MG tablet, Take 1 (one) tablet (12.5 mg total) by mouth 2 (two) times a day., Disp: 60 tablet, Rfl: 0 docusate sodium (COLACE) 100 MG capsule, Take 100 mg by mouth daily ., Disp: , Rfl: doxycycline hyclate (VIBRAMYCIN) 100 MG capsule, Take 1 (one) capsule (100 mg total) by mouth 2 (two) times a day Stay out of the sun. ., Disp: 60 capsule, Rfl: 1 FENOFIBRATE MICRONIZED ORAL, Take 160 mg by mouth daily ., Disp: , Rfl: finasteride (PROSCAR) 5 mg tablet, Take 2.5 mg by mouth every night at bedtime Wednesday,WED,WED ., Disp: , Rfl: gabapentin (NEURONTIN) 300 MG capsule, gabapentin GABAPENTIN 300 MG CAPS One tablet by mouth daily GABAPENTIN [id number] Sebastián Dailey MD 06-15-2017 [facility] ([id number]), Disp: , Rfl: heparin, porcine, PF, 100 unit/mL Syrg, For Open Ended Midline/PICC/CVC/Port: Flush with 5ml heparin as final flush after each use, weekly if not used. Use 3ml for Peripheral IV ., Disp: 100 Syringe,Rfl: 52 insulin NPH (HumuLIN,NovoLIN) 100 unit/mL injection, Take 30 units with breakfast, and 26 units at bedtime ., Disp: 20 mL, Rfl: 12 insulin regular (HumuLIN R, NovoLIN R) 100 unit/mL injection, Take 12 units three times daily before meals ., Disp: 20 mL, Rfl: 5 levothyroxine (SYNTHROID, LEVOTHROID) 112 MCG tablet, once daily ., Disp: , Rfl: magnesium oxide (MAG-OX) 400 mg (241.3 mg magnesium) tablet, Take 400 mg by mouth daily ., Disp: , Rfl: melatonin 5 mg Tab, Take 10 mg by mouth daily ., Disp: , Rfl: metFORMIN (GLUCOPHAGE-XR) 500 MG 24 hr tablet, 1,000 mg 2 (two) times a day ., Disp: , Rfl: multivitamin (THERAGRAN) per tablet, Take 1 tablet by mouth daily ., Disp: , Rfl: nitroGLYCERIN (NITROSTAT) 0.4 MG SL tablet, Place 1 (one) tablet (0.4 mg total) under the tongue every 5 (five) minutes as needed for chest pain , if no relief after 3 doses call 911 ., Disp: 90 tablet, Rfl: 12 rosuvastatin (CRESTOR) 20 MG tablet, 20 mg daily ., Disp: , Rfl: tamsulosin (FLOMAX) 0.4 mg capsule, tamsulosin TAMSULOSIN HCL 0.4 MG CAPS One tablet by mouth [id number] TAMSULOSIN HCL [id number] Sebastián Dailey MD [birth year]-15[birth year]2017 [facility] ([id number]), Disp: , Rfl: PMH/PSH/SH/FH reviewed, no change except: Status post surgical intervention by Dr. Mora on 12/02/2019 12/05/2019 Patient was seen by rehab physician rehab evaluation in progress patient's left ankle is at risk because of right foot surgery and diabetic neuropathy in the left foot also 12/07/2019 patient is now in rehab Review of Systems: All systems were reviewed and negative except: Denies any fever chills no pain in the right leg and foot 12/06/2019 denies any fever chills or diarrhea 12/08/2019 Schulte had to be reinserted for urinary increase residual 12/11/2019 Dressing was changed by Dr. Mora on Wednesday there was some drainage culture was done there was some maceration culture result is normal chalino Dr. Mora's note was reviewed by mo Medications Reviewed. Chart Reviewed. BP 125/78 Pulse 84 Temp 97.6 F (36.4 C) (Infrared) Resp 18 SpO2 95% Exam Findings: Constitutional: HENT: Pupils reactive head: No oral candidiasis Eyes: No icterus Neck: Supple Cardiovascular: Heart S1-S2 2 by systolic murmur present no S3 Murmur Pulmonary/Chest: Clear Abdominal: Soft Musculoskeletal: No calf tenderness on the right leg Neurological: Has diabetic neuropathy with Charcot is able to wiggle the toes Skin no redness or cellulitis noted on the plantar foot area Schulte: Patient does have a Schulte catheter followed by urology was changed by Dr. Izquierdo but he still has a Schulte catheter IV: None other: External fixator in place no drainage noted on the dressing pin sites are clean and dry the plantar foot wound l has a whitish base has healed up completely now no open areas seen No evidence of cellulitis now Wound (Outpatient Only) 03/31/19 Foot Anterior;Right;Plantar (Active) Wound Image 02/09/2020 8:22 AM Wound Length (cm) 2 cm 02/09/2020 8:22 AM Wound Width (cm) 0.3 cm 02/09/2020 8:22 AM Wound Depth (cm) 0.3 cm 02/09/2020 8:22 AM Wound Surface Area (cm^2) 0.6 cm^2 02/09/2020 8:22 AM Wound Volume (cm^3) 0.18 cm^3 02/09/2020 8:22 AM Area % Change -75 02/09/2020 8:22 AM Volume % Change 0 02/09/2020 8:22 AM Tunneling Maximum Distance (cm) 0 cm 02/09/2020 8:22 AM Tunneling Position (o'clock) 0 02/09/2020 8:22 AM Undermining Maximum Distance (cm) 1 0 cm 02/09/2020 8:22 AM Undermining Starting Position (o'clock) 1 0 02/09/2020 8:22 AM Undermining Ending Position (o'clock) 1 0 02/09/2020 8:22 AM Wound Encounter Subsequent 02/09/2020 8:22 AM Wound Progress Improving 02/09/2020 8:22 AM Non-staged Wound Description Partial thickness 02/09/2020 7:00 AM Drainage Amount Scant 02/09/2020 7:00 AM Drainage Description Yellow 02/09/2020 7:00 AM Odor None 02/09/2020 7:00 AM Wound Margin Attached to wound base 02/09/2020 7:00 AM Adherent Yellow Slough % None 02/09/2020 7:00 AM Moist Yellow Slough % None 02/09/2020 7:00 AM Dry Black Eschar % None 02/09/2020 7:00 AM Moist Black Eschar % None 02/09/2020 7:00 AM Epithelialization % 51-75% 02/09/2020 7:00 AM Granulation % 26-50%;[place] 02/09/2020 7:00 AM Exposed Structure None 02/09/2020 7:00 AM Wound Bed Characteristics Clean;Intact;Granulation tissue 02/09/2020 7:00 AM Wound Closure Sutures 12/28/2019 8:15 AM Angeli-wound Assessment Temperature WNL 02/09/2020 7:00 AM Treatments Not Applicable 01/19/2020 7:00 AM Hemostasis Not applicable 01/19/2020 7:00 AM Cleansed Soap and water 02/09/2020 7:00 AM Primary Dressing Collagen;Antibiotic ointment / cream 02/09/2020 8:22 AM Secondary Dressing Gauze pad;Gauze roll 02/09/2020 8:22 AM Compression Dressing Zechariah wrap 02/09/2020 8:22 AM Wound 12/14/19 Pressure Injury Great Toe;Toe Anterior;Right (Active) Wound Image 02/16/2020 8:15 AM Wound Length (cm) 0.2 cm 02/16/2020 8:15 AM Wound Width (cm) 0.2 cm 02/16/2020 8:15 AM Wound Depth (cm) 0.1 cm 02/16/2020 8:15 AM Wound Surface Area (cm^2) 0.04 cm^2 02/16/2020 8:15 AM Wound Volume (cm^3) 0 cm^3 02/16/2020 8:15 AM Area % Change -85.71 02/16/2020 8:15 AM Tunneling Maximum Distance (cm) 0 cm 02/09/2020 7:00 AM Tunneling Position (o'clock) 0 02/09/2020 7:00 AM Tunneling Maximum Distance (cm) 0 cm 02/09/2020 7:00 AM Tunneling Position (o'clock) 0 02/09/2020 7:00 AM Undermining Maximum Distance (cm) 1 0 cm 02/09/2020 7:00 AM Undermining Starting Position (o'clock) 1 0 02/09/2020 7:00 AM Undermining Ending Position (o'clock) 1 0 02/09/2020 7:00 AM Undermining Maximum Distance (cm) 2 0 cm 02/09/2020 7:00 AM Undermining Starting Position (o'clock) 2 0 02/09/2020 7:00 AM Undermining Ending Position (o'clock) 2 0 02/09/2020 7:00 AM Wound Progress Improving 02/09/2020 7:00 AM State of Healing Eschar 01/12/2020 7:00 AM Non-staged Wound Description Eschar covered 02/09/2020 7:00 AM Drainage Amount None 02/16/2020 8:15 AM Drainage Description Yellow 02/09/2020 7:00 AM Odor None 02/09/2020 7:00 AM Wound Margin Attached to wound base 02/09/2020 7:00 AM Adherent Yellow Slough % 26-50% 02/16/2020 8:15 AM Moist Yellow Slough % 76-100% 02/09/2020 7:00 AM Dry Black Eschar % None 02/09/2020 7:00 AM Moist Black Eschar % None 02/09/2020 7:00 AM Epithelialization % 76-100% 02/09/2020 7:00 AM Granulation % 26-50%;[place] 02/16/2020 8:15 AM Exposed Structure None 02/09/2020 7:00 AM Wound Bed Characteristics Clean;Dry;Intact 02/09/2020 7:00 AM Angeli-wound Assessment Temperature WNL 02/09/2020 7:00 AM Treatments Not Applicable 02/09/2020 7:00 AM Hemostasis Not applicable 02/09/2020 7:00 AM Cleansed Soap and water 02/16/2020 8:15 AM Primary Dressing Collagen 02/09/2020 7:00 AM Secondary Dressing Gauze roll;Gauze pad 02/09/2020 7:00 AM Compression Dressing Zechariah wrap 02/09/2020 7:00 AM Wound 02/12/20 Acute Diabetic Ulcer Foot Plantar (Active) Wound Image 02/16/2020 8:15 AM Wound Length (cm) 0.1 cm 02/16/2020 8:15 AM Wound Width (cm) 2.5 cm 02/16/2020 8:15 AM Wound Depth (cm) 0.1 cm 02/16/2020 8:15 AM Wound Surface Area (cm^2) 0.25 cm^2 02/16/2020 8:15 AM Wound Volume (cm^3) 0.03 cm^3 02/16/2020 8:15 AM Area % Change 0 02/16/2020 8:15 AM Drainage Amount None 02/16/2020 8:15 AM Adherent Yellow Slough % 1-25% 02/16/2020 8:15 AM Granulation % Bright red;76-100% 02/16/2020 8:15 AM Cleansed Soap and water 02/16/2020 8:15 AM Laboratory and Additional Data Reviewed: Date: 02/16/2020 New labs/ results as of last note: 02/09/2020 CBC Auto Differential .. Component Ref Range & Units 7d ago (02/09/20) 1mo ago (12/28/19) 2mo ago (12/18/19) 2mo ago (12/12/19) 2mo ago (12/07/19) 2mo ago (12/05/19) 2mo ago (12/02/19) WBC 4.50 - 11.00 K/mcL 6.01 4.66 6.38 4.12Low 6.95 7.98 9.43 RBC 4.50 - 5.90 M/mcL 4.53 4.42Low 4.44Low 4.13Low 4.23Low 4.22Low 4.29Low Hemoglobin 13.5 - 17.5 g/dL 12.1Low 11.6Low 11.7Low 10.8Low 11.3Low 11.4Low 11.5Low Hematocrit 41.0 - 53.0 % 38.2Low 38.0Low 37.8Low 35.6Low 36.8Low 36.3Low 36.7Low MCV 80.0 - 100.0 fL 84.3 86.0 85.1 86.2 87.0 86.0 85.5 MCH 26.0 - 34.0 pg 26.7 26.2 26.4 26.2 26.7 27.0 26.8 MCHC 31.0 - 37.0 g/dL 31.7 30.5Low 31.0 30.3Low 30.7Low 31.4 31.3 Platelets 150 - 400 K/mcL 196 182 323 203 210 228 Comprehensive Metabolic Panel Component Ref Range & Units 7d ago (02/09/20) 1mo ago (12/28/19) 2mo ago (12/18/19) 2mo ago (12/12/19) 2mo ago (12/07/19) 2mo ago (12/05/19) 2mo ago (12/02/19) Sodium 135 - 145 mmol/L 142 142 142 140 138 139 137 Potassium 3.5 - 5.1 mmol/L 4.3 4.3 4.5 4.3 3.9 4.1 4.7 Chloride 98 - 108 mmol/L 109High 109High 106 106 104 104 102 Bicarbonate 21 - 32 mmol/L 28 31 25 30 29 30 30 Anion Gap 10 - 20 mmol/L 9Low 6Low 16 8Low 9Low 9Low 10 Glucose 65 - 99 mg/dL 205High 135High 82 167High 243High 223High 256High BUN 8 - 25 mg/dL 22 18 23 26High 17 19 19 Creatinine 0.50 - 1.30 mg/dL 0.94 0.71 1.04 0.89 0.86 0.86 1.06 eGFR >=60 mL/min/1.73 m2 90 104 79 95 96 96 78 BUN/Creatinine Ratio 10.0 - 20.0 23.4High 25.4High 22.1High 29.2High 19.8 22.1High 17.9 Total Protein 6.0 - 8.0 g/dL 6.9 7.0 7.2 6.7 6.6 6.4 6.7 Albumin 3.2 - 5.2 g/dL 3.5 3.1Low 3.0Low 2.5Low 2.4Low 2.4Low 2.4Low Calcium 8.4 - 10.2 mg/dL 9.2 9.2 9.6 9.7 9.4 9.1 9.2 Alkaline Phosphatase 40 - 150 U/L 72 93 94 83 76 75 82 AST 0 - 45 U/L 14 16 20 35 28 20 32 Total Bilirubin 0.0 - 1.3 mg/dL 0.3 0.4 0.3 0.3 0.4 0.4 0.4 ALT 14 - 65 U/L 19 19 27 52 40 31 53 CRP, Inflammation Component Ref Range & Units 7d ago (02/09/20) 1mo ago (12/28/19) 2mo ago (12/18/19) 2mo ago (12/12/19) 2mo ago (12/05/19) 2mo ago (12/02/19) 2mo ago (11/27/19) CRP(Inflammation) <=10.0 mg/L 5.7 6.4 18.7High 52.4High 85.3High 76.1High 69.0High Sedimentation Rate Component Ref Range & Units 7d ago (02/09/20) 1mo ago (12/28/19) 2mo ago (12/18/19) 2mo ago (12/12/19) 2mo ago (12/05/19) 2mo ago (12/02/19) 2mo ago (11/27/19) Sed Rate 0 - 20 mm/hr 24High 33High 72High 91High 85High 93High 94High Update from previous note Current Antibiotic: Doxycycline 100 mg PO daily for 6 weeks - Started 01/03/2020 Previous Antibiotic: Doxycycline 100 mg BID for 6 weeks - Start 01/03/2020 Merrem 1,000 mg IV every 12 Hours until January 02, 2020 ([facility]) Rocephin 2 gm IV every 24 Hours Ancef 2,000 mg IV every 8 Hours Pre/Post Procedure Dressings: Right foot - Clean pins and wires with alcohol and paint with betadine. Kb to right great toe. Per Dr. Mora. Current culture: 12/28/2019 - Right foot, aerobic culture: Normal Chalino after 48 hours. Recent Cultures: 12/21/2019 - Right foot, aerobic - normal chalino after 48 hours 12/21/2019 - Right foot, anaerobic: No anaerobic growth at 2 days. 12/10/2019 Right Foot Wound Aerobic Culture: Normal Chalino After 48 Hours. Final 12/10/2019 Right foot wound, anaerobic culture: No anaerobic growth at 2 days. Final 12/08/2019 Urine Aerobic Culture: No Growth (<1,000 CFU/mL). Final. 12/07/2019 Urine Aerobic Culture on arrival to Nursing Rehab Unit: No Growth (<1,000 CFU/mL). Final. 12/02/2019 Right Foot Tissue Aerobic Culture: Normal Chalino After 48 Hours. Final. 12/02/2019 Right Foot Tissue AFB Culture: No Acid Fast Bacilli after 8 weeks. Final. 12/02/2019 Right Foot Tissue Anaerobic Culture: No Anaerobic Growth at 2 Days. Final. 12/02/2019 Right Foot Tissue Fungus Culture: No fungus isolated at 4 weeks. Final. 11/30/2019 Right Foot Wound Aerobic Culture: Normal Chalino After 48 Hours. Final. 11/21/2019 Left Leg Wound Aerobic Culture: Normal Chalino After 48 Hours. Final. 11/20/2019 Right Foot Tissue Aerobic Culture: Moderate Growth Enterobacter cloacae complex, S=Youssef Sensitive. Final. 11/20/2019 Right Foot Tissue Anaerobic Culture: No Anaerobic Growth at 2 Days. Final. 11/20/2019 Right Foot Bone Aerobic Culture: Light Growth Enterobacter Cloacae Complex, S=Youssef Sensitive. Final. 11/20/2019 Right Foot Bone Anaerobic Culture: No Anaerobic Growth at 2 Days. Final Date: 02/09/2020 No new labs/ results as of last note: 01/26/2020 Update from previous note Current Antibiotic: Doxycycline 100 mg PO daily for 6 weeks - Started 01/03/2020 Previous Antibiotic: Doxycycline 100 mg BID for 6 weeks - Start 01/03/2020 Merrem 1,000 mg IV every 12 Hours until January 02, 2020 ([facility]) Rocephin 2 gm IV every 24 Hours Ancef 2,000 mg IV every 8 Hours Pre/Post Procedure Dressings: Right foot - Clean pins and wires with alcohol and paint with betadine. Kb to right great toe. Per Dr. Mora. Current culture: 12/28/2019 - Right foot, aerobic culture: Normal Chalino after 48 hours. Recent Cultures: 12/21/2019 - Right foot, aerobic - normal chalino after 48 hours 12/21/2019 - Right foot, anaerobic: No anaerobic growth at 2 days. 12/10/2019 Right Foot Wound Aerobic Culture: Normal Chalino After 48 Hours. Final 12/10/2019 Right foot wound, anaerobic culture: No anaerobic growth at 2 days. Final 12/08/2019 Urine Aerobic Culture: No Growth (<1,000 CFU/mL). Final. 12/07/2019 Urine Aerobic Culture on arrival to Nursing Rehab Unit: No Growth (<1,000 CFU/mL). Final. 12/02/2019 Right Foot Tissue Aerobic Culture: Normal Chalino After 48 Hours. Final. 12/02/2019 Right Foot Tissue AFB Culture: No Acid Fast Bacilli after 8 weeks. Final. 12/02/2019 Right Foot Tissue Anaerobic Culture: No Anaerobic Growth at 2 Days. Final. 12/02/2019 Right Foot Tissue Fungus Culture: No fungus isolated at 4 weeks. Final. 12/01/2019 Blood Culture #1: No Growth After 5 Days. Final. 12/01/2019 Blood Culture #2: No Growth After 5 Days. Final. 11/30/2019 Right Foot Wound Aerobic Culture: Normal Chalino After 48 Hours. Final. 11/21/2019 Left Leg Wound Aerobic Culture: Normal Chalino After 48 Hours. Final. 11/20/2019 Right Foot Tissue Aerobic Culture: Moderate Growth Enterobacter cloacae complex, S=Youssef Sensitive. Final. 11/20/2019 Right Foot Tissue Anaerobic Culture: No Anaerobic Growth at 2 Days. Final. 11/20/2019 Right Foot Bone Aerobic Culture: Light Growth Enterobacter Cloacae Complex, S=Youssef Sensitive. Final. 11/20/2019 Right Foot Bone Anaerobic Culture: No Anaerobic Growth at 2 Days. Final Date: 01/26/2020 No new labs/ results as of last note: 01/19/2020 Update from previous note Current Antibiotic: Doxycycline 100 mg PO daily for 6 weeks - Started 01/03/2020 Previous Antibiotic: Doxycycline 100 mg BID for 6 weeks - Start 01/03/2020 Merrem 1,000 mg IV every 12 Hours until January 02, 2020 ([facility]) Rocephin 2 gm IV every 24 Hours Ancef 2,000 mg IV every 8 Hours Pre/Post Procedure Dressings: Right foot - Clean pins and wires with alcohol and paint with betadine. Kb to right great toe an plantar foot. Per Dr. Mora. Current culture: 12/28/2019 - Right foot, aerobic culture: Normal Chalino after 48 hours. Recent Cultures: 12/21/2019 - Right foot, aerobic - normal chalino after 48 hours 12/21/2019 - Right foot, anaerobic: No anaerobic growth at 2 days. 12/10/2019 Right Foot Wound Aerobic Culture: Normal Chalino After 48 Hours. Final 12/10/2019 Right foot wound, anaerobic culture: No anaerobic growth at 2 days. Final 12/08/2019 Urine Aerobic Culture: No Growth (<1,000 CFU/mL). Final. 12/07/2019 Urine Aerobic Culture on arrival to Nursing Rehab Unit: No Growth (<1,000 CFU/mL). Final. 12/02/2019 Right Foot Tissue Aerobic Culture: Normal Chalino After 48 Hours. Final. 12/02/2019 Right Foot Tissue AFB Culture: No Acid Fast Bacilli Seen. Preliminary. 12/02/2019 Right Foot Tissue Anaerobic Culture: No Anaerobic Growth at 2 Days. Final. 12/02/2019 Right Foot Tissue Fungus Culture: No fungus isolated at 4 weeks. Final. 12/01/2019 Blood Culture #1: No Growth After 5 Days. Final. 12/01/2019 Blood Culture #2: No Growth After 5 Days. Final. 11/30/2019 Right Foot Wound Aerobic Culture: Normal Chalino After 48 Hours. Final. 11/21/2019 Left Leg Wound Aerobic Culture: Normal Chalino After 48 Hours. Final. 11/20/2019 Right Foot Tissue Aerobic Culture: Moderate Growth Enterobacter cloacae complex, S=Youssef Sensitive. Final. 11/20/2019 Right Foot Tissue Anaerobic Culture: No Anaerobic Growth at 2 Days. Final. 11/20/2019 Right Foot Bone Aerobic Culture: Light Growth Enterobacter Cloacae Complex, S=Youssef Sensitive. Final. 11/20/2019 Right Foot Bone Anaerobic Culture: No Anaerobic Growth at 2 Days. Final January 19, 2020 12/28/2019 sed rate 33 CRP 6.4 WBC 4.6 culture on 12/28/2019 Gram stain negative culture normal chalino Date: 01/12/2020 New labs/ results as of last note: 12/28/2019 CBC Auto Differential Order: [id number] - Part of Panel Order [id number] Status: Final result Visible to patient: No (Not Released) Next appt: 01/12/2020 at 07:45 AM in Wound Care (Alena Mora DPM) Dx: Acute osteomyelitis (HCC); Elevated C... Component Ref Range & Units 12d ago (12/28/19) 3wk ago (12/18/19) 4wk ago (12/12/19) 1mo ago (12/07/19) 1mo ago (12/05/19) 1mo ago (12/02/19) 1mo ago (12/01/19) WBC 4.50 - 11.00 K/mcL 4.66 6.38 4.12Low 6.95 7.98 9.43 8.56 RBC 4.50 - 5.90 M/mcL 4.42Low 4.44Low 4.13Low 4.23Low 4.22Low 4.29Low 4.09Low Hemoglobin 13.5 - 17.5 g/dL 11.6Low 11.7Low 10.8Low 11.3Low 11.4Low 11.5Low 11.2Low Hematocrit 41.0 - 53.0 % 38.0Low 37.8Low 35.6Low 36.8Low 36.3Low 36.7Low 35.6Low MCV 80.0 - 100.0 fL 86.0 85.1 86.2 87.0 86.0 85.5 87.0 MCH 26.0 - 34.0 pg 26.2 26.4 26.2 26.7 27.0 26.8 27.4 MCHC 31.0 - 37.0 g/dL 30.5Low 31.0 30.3Low 30.7Low 31.4 31.3 31.5 Platelets 150 - 400 K/mcL 182 323 203 210 228 235 232 Comprehensive Metabolic Panel Order: [id number] Status: Final result Visible to patient: No (Not Released) Next appt: 01/12/2020 at 07:45 AM in Wound Care (Alena Mora DPM) Dx: Acute osteomyelitis (HCC); Elevated C... Component Ref Range & Units 12d ago (12/28/19) 3wk ago (12/18/19) 4wk ago (12/12/19) 1mo ago (12/07/19) 1mo ago (12/05/19) 1mo ago (12/02/19) 1mo ago (12/01/19) Sodium 135 - 145 mmol/L 142 142 140 138 139 137 140 Potassium 3.5 - 5.1 mmol/L 4.3 4.5 4.3 3.9 4.1 4.7 5.0 Chloride 98 - 108 mmol/L 109High 106 106 104 104 102 106 Bicarbonate 21 - 32 mmol/L 31 25 30 29 30 30 30 Anion Gap 10 - 20 mmol/L 6Low 16 8Low 9Low 9Low 10 9Low Glucose 65 - 99 mg/dL 135High 82 167High 243High 223High 256High 223High BUN 8 - 25 mg/dL 18 23 26High 17 19 19 22 Creatinine 0.50 - 1.30 mg/dL 0.71 1.04 0.89 0.86 0.86 1.06 0.98 eGFR >=60 mL/min/1.73 m2 104 79 95 96 96 78 85 BUN/Creatinine Ratio 10.0 - 20.0 25.4High 22.1High 29.2High 19.8 22.1High 17.9 22.4High Total Protein 6.0 - 8.0 g/dL 7.0 7.2 6.7 6.6 6.4 6.7 Albumin 3.2 - 5.2 g/dL 3.1Low 3.0Low 2.5Low 2.4Low 2.4Low 2.4Low Calcium 8.4 - 10.2 mg/dL 9.2 9.6 9.7 9.4 9.1 9.2 9.1 Alkaline Phosphatase 40 - 150 U/L 93 94 83 76 75 82 AST 0 - 45 U/L 16 20 35 28 20 32 Total Bilirubin 0.0 - 1.3 mg/dL 0.4 0.3 0.3 0.4 0.4 0.4 ALT 14 - 65 U/L 19 27 52 40 31 53 Resulting Agency Lab Lab Lab Lab Lab Lab Lab CRP, Inflammation Order: [id number] Status: Final result Visible to patient: No (Not Released) Next appt: 01/12/2020 at 07:45 AM in Wound Care (Alena Mora DPM) Dx: Acute osteomyelitis (HCC); Elevated C... Component Ref Range & Units 12d ago (12/28/19) 3wk ago (12/18/19) 4wk ago (12/12/19) 1mo ago (12/05/19) 1mo ago (12/02/19) 1mo ago (11/27/19) CRP(Inflammation) <=10.0 mg/L 6.4 18.7High 52.4High 85.3High 76.1High 69.0High Sedimentation Rate Order: [id number] Status: Final result Visible to patient: No (Not Released) Next appt: 01/12/2020 at 07:45 AM in Wound Care (Alena Mora DPM) Dx: Acute osteomyelitis (HCC); Elevated C... Component Ref Range & Units 12d ago (12/28/19) 3wk ago (12/18/19) 4wk ago (12/12/19) 1mo ago (12/05/19) 1mo ago (12/02/19) 1mo ago (11/27/19) Sed Rate 0 - 20 mm/hr 33High 72High 91High 85High 93High 94High Update from previous note Current Antibiotic: Doxycycline 100 mg PO BID for 6 weeks - Start 01/03/2020 Previous Antibiotic: Merrem 1,000 mg IV every 12 Hours until January 02, 2020 ([facility]) Rocephin 2 gm IV every 24 Hours Ancef 2,000 mg IV every 8 Hours Pre/Post Procedure Dressings: Per Dr. Mora Current culture: 12/28/2019 - Right foot, aerobic culture: Normal Chalino after 48 hours. Recent Cultures: 12/21/2019 - Right foot, aerobic - normal chalino after 48 hours 12/21/2019 - Right foot, anaerobic: No anaerobic growth at 2 days. 12/10/2019 Right Foot Wound Aerobic Culture: Normal Chalino After 48 Hours. Final 12/10/2019 Right foot wound, anaerobic culture: No anaerobic growth at 2 days. Final 12/08/2019 Urine Aerobic Culture: No Growth (<1,000 CFU/mL). Final. 12/07/2019 Urine Aerobic Culture on arrival to Nursing Rehab Unit: No Growth (<1,000 CFU/mL). Final. 12/02/2019 Right Foot Tissue Aerobic Culture: Normal Chalino After 48 Hours. Final. 12/02/2019 Right Foot Tissue AFB Culture: No Acid Fast Bacilli Seen. Preliminary. 12/02/2019 Right Foot Tissue Anaerobic Culture: No Anaerobic Growth at 2 Days. Final. 12/02/2019 Right Foot Tissue Fungus Culture: No fungus isolated at 4 weeks. Final. 12/01/2019 Blood Culture #1: No Growth After 5 Days. Final. 12/01/2019 Blood Culture #2: No Growth After 5 Days. Final. 11/30/2019 Right Foot Wound Aerobic Culture: Normal Chalino After 48 Hours. Final. 11/21/2019 Left Leg Wound Aerobic Culture: Normal Chalino After 48 Hours. Final. 11/20/2019 Right Foot Tissue Aerobic Culture: Moderate Growth Enterobacter cloacae complex, S=Youssef Sensitive. Final. 11/20/2019 Right Foot Tissue Anaerobic Culture: No Anaerobic Growth at 2 Days. Final. 11/20/2019 Right Foot Bone Aerobic Culture: Light Growth Enterobacter Cloacae Complex, S=Youssef Sensitive. Final. 11/20/2019 Right Foot Bone Anaerobic Culture: No Anaerobic Growth at 2 Days. Final Date: 12/28/2019 New labs/ results as of last note: 12/21/2019 Labs unable to be drawn by Home Health nurse 12/25/2019 I have personally reviewed all labs and other results Labs: Current Culture: 12/21/2019 - Right foot, aerobic - normal chalino after 48 hours 12/21/2019 - Right foot, anaerobic: No anaerobic growth at 2 days. Update from previous note Current Antibiotics: Merrem 1,000 mg IV every 12 Hours until January 02, 2020 ([facility]) Previous Antibiotic: Rocephin 2 gm IV every 24 Hours Ancef 2,000 mg IV every 8 Hours Pre/Post Procedure Dressings: Per Dr. Mora Recent Cultures: 12/10/2019 Right Foot Wound Aerobic Culture: Normal Chalino After 48 Hours. Final 12/10/2019 Right foot wound, anaerobic culture: No anaerobic growth at 2 days. Final 12/08/2019 Urine Aerobic Culture: No Growth (<1,000 CFU/mL). Final. 12/07/2019 Urine Aerobic Culture on arrival to Nursing Rehab Unit: No Growth (<1,000 CFU/mL). Final. 12/02/2019 Right Foot Tissue Aerobic Culture: Normal [place] After 48 Hours. Final. 12/02/2019 Right Foot Tissue AFB Culture: No Acid Fast Bacilli Seen. Preliminary. 12/02/2019 Right Foot Tissue Anaerobic Culture: No Anaerobic Growth at 2 Days. Final. 12/02/2019 Right Foot Tissue Fungus Culture: Fungal Culture in Progress. Preliminary. 12/01/2019 Blood Culture #1: No Growth After 5 Days. Final. 12/01/2019 Blood Culture #2: No Growth After 5 Days. Final. 11/30/2019 Right Foot Wound Aerobic Culture: Normal Chal[place] After 48 Hours. Final. 11/21/2019 Left Leg Wound Aerobic Culture: Normal [place] After 48 Hours. Final. 11/20/2019 Right Foot Tissue Aerobic Culture: Moderate Growth Enterobacter cloacae complex, S=Youssef Sensitive. Final. 11/20/2019 Right Foot Tissue Anaerobic Culture: No Anaerobic Growth at 2 Days. Final. 11/20/2019 Right Foot Bone Aerobic Culture: Light Growth Enterobacter Cloacae Complex, S=Youssef Sensitive. Final. 11/20/2019 Right Foot Bone Anaerobic Culture: No Anaerobic Growth at 2 Days. Final Date: 12/21/2019 No new labs/ results as of last note: 12/18/2019 Update from previous note Current Antibiotics: Merrem 1,000 mg IV every 12 Hours until January 02, 2020 ([facility]) Previous Antibiotic: Rocephin 2 gm IV every 24 Hours Ancef 2,000 mg IV every 8 Hours Pre/Post Procedure Dressings: Per Dr. Mora Current Cultures: 12/10/2019 Right Foot Wound Aerobic Culture: Normal Chal[place] After 48 Hours. Final 12/10/2019 Right foot wound, anaerobic culture: No anaerobic growth at 2 days. Final 12/08/2019 Urine Aerobic Culture: No Growth (<1,000 CFU/mL). Final. 12/07/2019 Urine Aerobic Culture on arrival to Nursing Rehab Unit: No Growth (<1,000 CFU/mL). Final. 12/02/2019 Right Foot Tissue Aerobic Culture: Normal [place] After 48 Hours. Final. 12/02/2019 Right Foot Tissue AFB Culture: No Acid Fast Bacilli Seen. Preliminary. 12/02/2019 Right Foot Tissue Anaerobic Culture: No Anaerobic Growth at 2 Days. Final. 12/02/2019 Right Foot Tissue Fungus Culture: Fungal Culture in Progress. Preliminary. 12/01/2019 Blood Culture #1: No Growth After 5 Days. Final. 12/01/2019 Blood Culture #2: No Growth After 5 Days. Final. 11/30/2019 Right Foot Wound Aerobic Culture: Normal [place] After 48 Hours. Final. 11/21/2019 Left Leg Wound Aerobic Culture: Normal [place] After 48 Hours. Final. 11/20/2019 Right Foot Tissue Aerobic Culture: Moderate Growth Enterobacter cloacae complex, S=Youssef Sensitive. Final. 11/20/2019 Right Foot Tissue Anaerobic Culture: No Anaerobic Growth at 2 Days. Final. 11/20/2019 Right Foot Bone Aerobic Culture: Light Growth Enterobacter Cloacae Complex, S=Youssef Sensitive. Final. 11/20/2019 Right Foot Bone Anaerobic Culture: No Anaerobic Growth at 2 Days. Final Date: 12/19/2019 No new labs/results as of last note Update from previous note Tmax: 98.5 Urine Output: 2400 Stool: X1 Current Antibiotics: Merrem 1,000 mg IV every 12 Hours until January 02, 2020 Previous Antibiotic: Rocephin 2 gm IV every 24 Hours Ancef 2,000 mg IV every 8 Hours Pre/Post Procedure Dressings: Per Dr. Mora I have personally reviewed the labs and results Test results Laboratory and Additional Data Reviewed: Labs to de drawn every Wednesday (CBC, CMP, Sed Rate, CRP) Current Cultures: 12/10/2019 Right Foot Wound Aerobic Culture: Normal Chal[place] After 48 Hours. Final 12/10/2019 Right foot wound, anaerobic culture: No anaerobic growth at 2 days. Final 12/08/2019 Urine Aerobic Culture: No Growth (<1,000 CFU/mL). Final. 12/07/2019 Urine Aerobic Culture on arrival to Nursing Rehab Unit: No Growth (<1,000 CFU/mL). Final. 12/02/2019 Right Foot Tissue Aerobic Culture: Normal [place] After 48 Hours. Final. 12/02/2019 Right Foot Tissue AFB Culture: No Acid Fast Bacilli Seen. Preliminary. 12/02/2019 Right Foot Tissue Anaerobic Culture: No Anaerobic Growth at 2 Days. Final. 12/02/2019 Right Foot Tissue Fungus Culture: Fungal Culture in Progress. Preliminary. 12/01/2019 Blood Culture #1: No Growth After 5 Days. Final. 12/01/2019 Blood Culture #2: No Growth After 5 Days. Final. 11/30/2019 Right Foot Wound Aerobic Culture: Normal [place] After 48 Hours. Final. 11/21/2019 Left Leg Wound Aerobic Culture: Normal [place] After 48 Hours. Final. 11/20/2019 Right Foot Tissue Aerobic Culture: Moderate Growth Enterobacter cloacae complex, S=Youssef Sensitive. Final. 11/20/2019 Right Foot Tissue Anaerobic Culture: No Anaerobic Growth at 2 Days. Final. 11/20/2019 Right Foot Bone Aerobic Culture: Light Growth Enterobacter Cloacae Complex, S=Youssef Sensitive. Final. 11/20/2019 Right Foot Bone Anaerobic Culture: No Anaerobic Growth at 2 Days. Final Date: 12/18/2019 No new labs/results as of last note Update from previous note Tmax: 98.1 Urine Output: 3950 Stool: not recorded Current Antibiotics: Merrem 1,000 mg IV every 12 Hours Previous Antibiotic: Rocephin 2 gm IV every 24 Hours Ancef 2,000 mg IV every 8 Hours Pre/Post Procedure I have personally reviewed the labs and results Test results Laboratory and Additional Data Reviewed: Current Cultures: 12/10/2019 Right Foot Wound Aerobic Culture: Normal [place] After 48 Hours. Final 12/10/2019 Right foot wound, anaerobic culture: No anaerobic growth at 2 days. Final 12/08/2019 Urine Aerobic Culture: No Growth (<1,000 CFU/mL). Final. 12/07/2019 Urine Aerobic Culture on arrival to Nursing Rehab Unit: No Growth (<1,000 CFU/mL). Final. 12/02/2019 Right Foot Tissue Aerobic Culture: Normal [place] After 48 Hours. Final. 12/02/2019 Right Foot Tissue AFB Culture: No Acid Fast Bacilli Seen. Preliminary. 12/02/2019 Right Foot Tissue Anaerobic Culture: No Anaerobic Growth at 2 Days. Final. 12/02/2019 Right Foot Tissue Fungus Culture: Fungal Culture in Progress. Preliminary. 12/01/2019 Blood Culture #1: No Growth After 5 Days. Final. 12/01/2019 Blood Culture #2: No Growth After 5 Days. Final. 11/30/2019 Right Foot Wound Aerobic Culture: Normal [place] After 48 Hours. Final. 11/21/2019 Left Leg Wound Aerobic Culture: Normal [place] After 48 Hours. Final. 11/20/2019 Right Foot Tissue Aerobic Culture: Moderate Growth Enterobacter cloacae complex, S=Youssef Sensitive. Final. 11/20/2019 Right Foot Tissue Anaerobic Culture: No Anaerobic Growth at 2 Days. Final. 11/20/2019 Right Foot Bone Aerobic Culture: Light Growth Enterobacter Cloacae Complex, S=Youssef Sensitive. Final. 11/20/2019 Right Foot Bone Anaerobic Culture: No Anaerobic Growth at 2 Days. Final Date: 12/15/2019 New labs/results as of last note Update from previous note Tmax: 98.7 Urine Output: 1900 Stool: not recorded Current Antibiotics: Merrem 1,000 mg IV every 12 Hours Previous Antibiotic: Rocephin 2 gm IV every 24 Hours Ancef 2,000 mg IV every 8 Hours Pre/Post Procedure I have personally reviewed the labs and results Test results Laboratory and Additional Data Reviewed: Current Cultures: 12/10/2019 Right Foot Wound Aerobic Culture: Normal [place] After 48 Hours. Final 12/10/2019 Right foot wound, anaerobic culture: No anaerobic growth at 2 days. Final 12/08/2019 Urine Aerobic Culture: No Growth (<1,000 CFU/mL). Final. 12/07/2019 Urine Aerobic Culture on arrival to Nursing Rehab Unit: No Growth (<1,000 CFU/mL). Final. 12/02/2019 Right Foot Tissue Aerobic Culture: Normal [place] After 48 Hours. Final. 12/02/2019 Right Foot Tissue AFB Culture: No Acid Fast Bacilli Seen. Preliminary. 12/02/2019 Right Foot Tissue Anaerobic Culture: No Anaerobic Growth at 2 Days. Final. 12/02/2019 Right Foot Tissue Fungus Culture: Fungal Culture in Progress. Preliminary. 12/01/2019 Blood Culture #1: No Growth After 5 Days. Final. 12/01/2019 Blood Culture #2: No Growth After 5 Days. Final. 11/30/2019 Right Foot Wound Aerobic Culture: Normal [place] After 48 Hours. Final. 11/21/2019 Left Leg Wound Aerobic Culture: Normal [place] After 48 Hours. Final. 11/20/2019 Right Foot Tissue Aerobic Culture: Moderate Growth Enterobacter cloacae complex, S=Youssef Sensitive. Final. 11/20/2019 Right Foot Tissue Anaerobic Culture: No Anaerobic Growth at 2 Days. Final. 11/20/2019 Right Foot Bone Aerobic Culture: Light Growth Enterobacter Cloacae Complex, S=Youssef Sensitive. Final. 11/20/2019 Right Foot Bone Anaerobic Culture: No Anaerobic Growth at 2 Days. Final Date: 12/14/2019 New labs/ results as of last note: 12/12/2019 T-Max: 98.6 Output: Urine 2150 ml Stool not recorded Current Antibiotics: Merrem 1,000 mg IV every 12 Hours Previous Antibiotic: Rocephin 2 gm IV every 24 Hours Ancef 2,000 mg IV every 8 Hours Pre/Post Procedure I have personally reviewed the labs and results Test results Laboratory and Additional Data Reviewed: Current Cultures: 12/10/2019 Right Foot Wound Aerobic Culture: Normal [place] After 48 Hours. Final 12/10/2019 Right foot wound, anaerobic culture: No anaerobic growth at 2 days. Final 12/08/2019 Urine Aerobic Culture: No Growth (<1,000 CFU/mL). Final. 12/07/2019 Urine Aerobic Culture on arrival to Nursing Rehab Unit: No Growth (<1,000 CFU/mL). Final. 12/02/2019 Right Foot Tissue Aerobic Culture: Normal [place] After 48 Hours. Final. 12/02/2019 Right Foot Tissue AFB Culture: No Acid Fast Bacilli Seen. Preliminary. 12/02/2019 Right Foot Tissue Anaerobic Culture: No Anaerobic Growth at 2 Days. Final. 12/02/2019 Right Foot Tissue Fungus Culture: Fungal Culture in Progress. Preliminary. 12/01/2019 Blood Culture #1: No Growth After 5 Days. Final. 12/01/2019 Blood Culture #2: No Growth After 5 Days. Final. 11/30/2019 Right Foot Wound Aerobic Culture: Normal [place] After 48 Hours. Final. 11/21/2019 Left Leg Wound Aerobic Culture: Normal [place] After 48 Hours. Final. 11/20/2019 Right Foot Tissue Aerobic Culture: Moderate Growth Enterobacter cloacae complex, S=Youssef Sensitive. Final. 11/20/2019 Right Foot Tissue Anaerobic Culture: No Anaerobic Growth at 2 Days. Final. 11/20/2019 Right Foot Bone Aerobic Culture: Light Growth Enterobacter Cloacae Complex, S=Youssef Sensitive. Final. 11/20/2019 Right Foot Bone Anaerobic Culture: No Anaerobic Growth at 2 Days. Final Update from previous note Date: 12/12/2019 New labs/results as of last note Update from previous note Tmax: 99.2 Urine Output: 1600 Stool: not recorded Current Antibiotics: Merrem 1,000 mg IV every 12 Hours Previous Antibiotic: Rocephin 2 gm IV every 24 Hours Ancef 2,000 mg IV every 8 Hours Pre/Post Procedure I have personally reviewed the labs and results Test results Laboratory and Additional Data Reviewed: Labs: CMP 12/12/2019 06:11 Glucose: 167 BUN: 26 Creatinine: 0.89 Sodium: 140 Potassium: 4.3 Total Protein: 6.7 Albumin: 2.5 Alk Phos: 83 AST: 35 ALT: 52 Total Bilirubin: 0.3 CBC 12/12/2019 06:11 WBC: 4.12 RBC: 4.13 Hgb: 10.8 Hct: 35.6 Platelets: 203 Lymphocytes Abs: 0.66 CRP 12/12/2019 06:11 52.4 Current Cultures: 12/10/2019 Right Foot Wound Aerobic Culture: Normal [place] After 24 Hours. Preliminary. 12/08/2019 Urine Aerobic Culture: No Growth (<1,000 CFU/mL). Final. 12/07/2019 Urine Aerobic Culture on arrival to Nursing Rehab Unit: No Growth (<1,000 CFU/mL). Final. 12/02/2019 Right Foot Tissue Aerobic Culture: Normal [place] After 48 Hours. Final. 12/02/2019 Right Foot Tissue AFB Culture: No Acid Fast Bacilli Seen. Preliminary. 12/02/2019 Right Foot Tissue Anaerobic Culture: No Anaerobic Growth at 2 Days. Final. 12/02/2019 Right Foot Tissue Fungus Culture: Fungal Culture in Progress. Preliminary. 12/01/2019 Blood Culture #1: No Growth After 5 Days. Final. 12/01/2019 Blood Culture #2: No Growth After 5 Days. Final. 11/30/2019 Right Foot Wound Aerobic Culture: Normal [place] After 48 Hours. Final. 11/21/2019 Left Leg Wound Aerobic Culture: Normal [place] After 48 Hours. Final. 11/20/2019 Right Foot Tissue Aerobic Culture: Moderate Growth Enterobacter cloacae complex, S=Youssef Sensitive. Final. 11/20/2019 Right Foot Tissue Anaerobic Culture: No Anaerobic Growth at 2 Days. Final. 11/20/2019 Right Foot Bone Aerobic Culture: Light Growth Enterobacter Cloacae Complex, S=Youssef Sensitive. Final. 11/20/2019 Right Foot Bone Anaerobic Culture: No Anaerobic Growth at 2 Days. Final. Date: 12/11/2019 New labs/results as of last note Update from previous note Tmax: 98.7 Urine Output: 2500 Stool: X1 Current Antibiotics: Rocephin 2 gm IV every 24 Hours until 01/02/2020 Previous Antibiotic: Ancef 2,000 mg IV every 8 Hours Pre/Post Procedure I have personally reviewed the labs and results Test results Laboratory and Additional Data Reviewed: U/A 12/08/2019 Glucose: 150 Blood: Small WBC: 7 Bacteria: Rare Labs: Vitamin D, Total 12/07/2019 04:55 16 B12/Folate 12/07/2019 04:55 B12: 828 Folate: >20.0 Ferritin 12/07/2019 04:55 211 Iron 12/07/2019 04:55 30 CMP 12/07/2019 04:55 Glucose: 243 BUN: 17 Creatinine: 0.86 Sodium: 138 Potassium: 3.9 Total Protein: 6.6 Albumin: 2.4 Alk Phos: 76 AST: 28 ALT: 40 Total Bilirubin: 0.4 CBC 12/07/2019 04:54 WBC: 6.95 Hgb: 11.3 Hct: 36.8 Platelets: 210 Lymphocytes Abs: 0.64 CRP 12/05/2019 07:58 85.3 U/A 12/07/2019 Protein: 30 Glucose: >=500 Blood: Small Leukocyte Esterase: Trace Renal Epithelial: <1 Current Cultures: 12/10/2019 Right Foot Wound Aerobic Culture: Rare WBC. Rare Epithelial Cells. No Organisms Seen. Preliminary. 12/08/2019 Urine Aerobic Culture: No Growth (<1,000 CFU/mL). Final. 12/07/2019 Urine Aerobic Culture on arrival to Nursing Rehab Unit: No Growth (<1,000 CFU/mL). Final. 12/02/2019 Right Foot Tissue Aerobic Culture: Normal [place] After 48 Hours. Final. 12/02/2019 Right Foot Tissue AFB Culture: No Acid Fast Bacilli Seen. Preliminary. 12/02/2019 Right Foot Tissue Anaerobic Culture: No Anaerobic Growth at 2 Days. Final. 12/02/2019 Right Foot Tissue Fungus Culture: Fungal Culture in Progress. Preliminary. 12/01/2019 Blood Culture #1: No Growth After 5 Days. Final. 12/01/2019 Blood Culture #2: No Growth After 5 Days. Final. 11/30/2019 Right Foot Wound Aerobic Culture: Normal [place] After 48 Hours. Final. 11/21/2019 Left Leg Wound Aerobic Culture: Normal [place] After 48 Hours. Final. 11/20/2019 Right Foot Tissue Aerobic Culture: Moderate Growth Enterobacter cloacae complex, S=Youssef Sensitive. Final. 11/20/2019 Right Foot Tissue Anaerobic Culture: No Anaerobic Growth at 2 Days. Final. 11/20/2019 Right Foot Bone Aerobic Culture: Light Growth Enterobacter Cloacae Complex, S=Youssef Sensitive. Final. 11/20/2019 Right Foot Bone Anaerobic Culture: No Anaerobic Growth at 2 Days. Final. Date: 12/08/2019 New labs/results as of last note Update from previous note Tmax: 99.2 Urine Output: 4950 Stool: not recorded Current Antibiotics: Rocephin 2 gm IV every 24 Hours until 01/02/2020 Previous Antibiotic: Ancef 2,000 mg IV every 8 Hours Pre/Post Procedure I have personally reviewed the labs and results Test results Laboratory and Additional Data Reviewed: U/A 12/08/2019 Glucose: 150 Blood: Small WBC: 7 Bacteria: Rare Labs: Vitamin D, Total 12/07/2019 04:55 16 B12/Folate 12/07/2019 04:55 B12: 828 Folate: >20.0 Ferritin 12/07/2019 04:55 211 Iron 12/07/2019 04:55 30 CMP 12/07/2019 04:55 Glucose: 243 BUN: 17 Creatinine: 0.86 Sodium: 138 Potassium: 3.9 Total Protein: 6.6 Albumin: 2.4 Alk Phos: 76 AST: 28 ALT: 40 Total Bilirubin: 0.4 CBC 12/07/2019 04:54 WBC: 6.95 Hgb: 11.3 Hct: 36.8 Platelets: 210 Lymphocytes Abs: 0.64 CRP 12/05/2019 07:58 85.3 U/A 12/07/2019 Protein: 30 Glucose: >=500 Blood: Small Leukocyte Esterase: Trace Renal Epithelial: <1 Current Cultures: 12/07/2019 Urine Aerobic Culture on arrival to Nursing Rehab Unit: No Growth, Incubation Continued.Preliminary. 12/02/2019 Right Foot Tissue Aerobic Culture: Normal [place] After 48 Hours. Final. 12/02/2019 Right Foot Tissue AFB Culture: No Acid Fast Bacilli Seen. Preliminary. 12/02/2019 Right Foot Tissue Anaerobic Culture: No Anaerobic Growth at 2 Days. Final. 12/02/2019 Right Foot Tissue Fungus Culture: Fungal Culture in Progress. Preliminary. 12/01/2019 Blood Culture #1: No Growth After 5 Days. Final. 12/01/2019 Blood Culture #2: No Growth After 5 Days. Final. 11/30/2019 Right Foot Wound Aerobic Culture: Normal [place] After 48 Hours. Final. 11/21/2019 Left Leg Wound Aerobic Culture: Normal [place] After 48 Hours. Final. 11/20/2019 Right Foot Tissue Aerobic Culture: Moderate Growth Enterobacter cloacae complex, S=Youssef Sensitive. Final. 11/20/2019 Right Foot Tissue Anaerobic Culture: No Anaerobic Growth at 2 Days. Final. 11/20/2019 Right Foot Bone Aerobic Culture: Light Growth Enterobacter Cloacae Complex, S=Youssef Sensitive. Final. 11/20/2019 Right Foot Bone Anaerobic Culture: No Anaerobic Growth at 2 Days. Final. Radiology: Left Ankle X-Ray 12/07/2019 1. A new screw internally fixes the base of the 5th metatarsal to near anatomic alignment, however this screw is broken/fractured. 2. 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 Lateral subluxation of the 2nd through 5th metatarsal bases is again noted, as well as pes planus deformity. 3. Milder arthritis is noted in the tibiotalar joint and subtalar joint. 4. Large calcaneal enthesophytes are noted at the insertion sites of the plantar fascia and Achilles tendon. 5. No acute fracture, or other acute bony abnormality is seen. Date: 12/07/2019 New labs/results as of last note Update from previous note Tmax: 99.1 Urine Output: 1800 Stool: not recorded Current Antibiotics: Rocephin 2 gm IV every 24 Hours until 01/02/2020 Previous Antibiotic: Ancef 2,000 mg IV every 8 Hours Pre/Post Procedure I have personally reviewed the labs and results Test results Laboratory and Additional Data Reviewed: Labs: Vitamin D, Total 12/07/2019 04:55 16 B12/Folate 12/07/2019 04:55 B12: 828 Folate: >20.0 Ferritin 12/07/2019 04:55 211 Iron 12/07/2019 04:55 30 CMP 12/07/2019 04:55 Glucose: 243 BUN: 17 Creatinine: 0.86 Sodium: 138 Potassium: 3.9 Total Protein: 6.6 Albumin: 2.4 Alk Phos: 76 AST: 28 ALT: 40 Total Bilirubin: 0.4 CBC 12/07/2019 04:54 WBC: 6.95 Hgb: 11.3 Hct: 36.8 Platelets: 210 Lymphocytes Abs: 0.64 CRP 12/05/2019 07:58 85.3 U/A 12/07/2019 Protein: 30 Glucose: >=500 Blood: Small Leukocyte Esterase: Trace Renal Epithelial: <1 Current Cultures: 12/02/2019 Right Foot Tissue Aerobic Culture: Normal [place] After 48 Hours. Final. 12/02/2019 Right Foot Tissue AFB Culture: No Acid Fast Bacilli Seen. Preliminary. 12/02/2019 Right Foot Tissue Anaerobic Culture: No Anaerobic Growth at 2 Days. Final. 12/02/2019 Right Foot Tissue Fungus Culture: Fungal Culture in Progress. Preliminary. 12/01/2019 Blood Culture #1: No Growth After 5 Days. Final. 12/01/2019 Blood Culture #2: No Growth After 5 Days. Final. 11/30/2019 Right Foot Wound Aerobic Culture: Normal [place] After 48 Hours. Final. 11/21/2019 Left Leg Wound Aerobic Culture: Normal [place] After 48 Hours. Final. 11/20/2019 Right Foot Tissue Aerobic Culture: Moderate Growth Enterobacter cloacae complex, S=Youssef Sensitive. Final. 11/20/2019 Right Foot Tissue Anaerobic Culture: No Anaerobic Growth at 2 Days. Final. 11/20/2019 Right Foot Bone Aerobic Culture: Light Growth Enterobacter Cloacae Complex, S=Youssef Sensitive. Final. 11/20/2019 Right Foot Bone Anaerobic Culture: No Anaerobic Growth at 2 Days. Final. Date: 12/06/2019 New labs/results as of last note Update from previous note Tmax: 99 Urine Output: 1250 Stool: not recorded Current Antibiotics: Rocephin 2 gm IV every 24 Hours until 01/02/2020 Previous Antibiotic: Ancef 2,000 mg IV every 8 Hours Pre/Post Procedure I have personally reviewed the labs and results Test results Laboratory and Additional Data Reviewed: Labs: CBC 12/05/2019 07:58 WBC: 7.98 Hgb: 11.4 Hct: 36.3 Platelets: 228 Lymphocytes Abs: 0.52 CMP 12/05/2019 07:58 Glucose: 223 BUN: 19 Creatinine: 0.86 Sodium: 139 Potassium: 4.1 Total Protein: 6.4 Albumin: 2.4 Alk Phos: 75 AST: 20 ALT: 31 Total Bilirubin: 0.4 CRP 12/05/2019 07:58 85.3 Current Cultures: 12/02/2019 Right Foot Tissue Aerobic Culture: Normal [place] After 48 Hours. Final. 12/02/2019 Right Foot Tissue AFB Culture: No Acid Fast Bacilli Seen. Preliminary. 12/02/2019 Right Foot Tissue Anaerobic Culture: No Anaerobic Growth at 2 Days. Final. 12/02/2019 Right Foot Tissue Fungus Culture: Fungal Culture in Progress. Preliminary. 12/01/2019 Blood Culture #1: No Growth After 5 Days. Final. 12/01/2019 Blood Culture #2: No Growth After 5 Days. Final. 11/30/2019 Right Foot Wound Aerobic Culture: Normal [place] After 48 Hours. Final. 11/21/2019 Left Leg Wound Aerobic Culture: Normal [place] After 48 Hours. Final. 11/20/2019 Right Foot Tissue Aerobic Culture: Moderate Growth Enterobacter cloacae complex, S=Youssef Sensitive. Final. 11/20/2019 Right Foot Tissue Anaerobic Culture: No Anaerobic Growth at 2 Days. Final. 11/20/2019 Right Foot Bone Aerobic Culture: Light Growth Enterobacter Cloacae Complex, S=Youssef Sensitive. Final. 11/20/2019 Right Foot Bone Anaerobic Culture: No Anaerobic Growth at 2 Days. Final. Pathology: 12/02/2019 A. Soft tissue, Right Foot, excision: Non-specific ulcer. Date: 12/05/2019 New labs/results as of last note Update from previous note Tmax: 98.8 Urine Output: 2900 Stool: not recorded Current Antibiotics: Rocephin 2 gm IV every 24 Hours Previous Antibiotic: Ancef 2,000 mg IV every 8 Hours Pre/Post Procedure I have personally reviewed the labs and results Test results Laboratory and Additional Data Reviewed: Labs: CBC 12/05/2019 07:58 WBC: 7.98 Hgb: 11.4 Hct: 36.3 Platelets: 228 Lymphocytes Abs: 0.52 CMP 12/05/2019 07:58 Glucose: 223 BUN: 19 Creatinine: 0.86 Sodium: 139 Potassium: 4.1 Total Protein: 6.4 Albumin: 2.4 Alk Phos: 75 AST: 20 ALT: 31 Total Bilirubin: 0.4 CRP 12/05/2019 07:58 85.3 Current Cultures: 12/02/2019 Right Foot Tissue Aerobic Culture: Normal [place] After 48 Hours. Final. 12/02/2019 Right Foot Tissue AFB Culture: No Acid Fast Bacilli Seen. Preliminary. 12/02/2019 Right Foot Tissue Anaerobic Culture: No Anaerobic Growth at 2 Days. Final. 12/02/2019 Right Foot Tissue Fungus Culture: Fungal Culture in Progress. Preliminary. 12/01/2019 Blood Culture #1: No Growth After 48 Hours. Preliminary. 12/01/2019 Blood Culture #2: No Growth After 48 Hours. Preliminary. 11/30/2019 Right Foot Wound Aerobic Culture: Normal [place] After 48 Hours. Final. 11/21/2019 Left Leg Wound Aerobic Culture: Normal [place] After 48 Hours. Final. 11/20/2019 Right Foot Tissue Aerobic Culture: Moderate Growth Enterobacter cloacae complex, S=Youssef Sensitive. Final. 11/20/2019 Right Foot Tissue Anaerobic Culture: No Anaerobic Growth at 2 Days. Final. 11/20/2019 Right Foot Bone Aerobic Culture: Light Growth Enterobacter Cloacae Complex, S=Youssef Sensitive. Final. 11/20/2019 Right Foot Bone Anaerobic Culture: No Anaerobic Growth at 2 Days. Final. Current Antibiotics: Rocephin 2 gm IV every 24 Hours Previous Antibiotic: Ancef 2,000 mg IV every 8 Hours Pre/Post Procedure I have personally reviewed the labs and results Test results Laboratory and Additional Data Reviewed: Results from last 7 days Lab Units 12/01/19 0648 11/30/19 1245 11/29/19 0655 SODIUM mmol/L 140 140 142 POTASSIUM mmol/L 5.0 4.9 5.1 CHLORIDE mmol/L 106 105 107 BUN mg/dL 22 24 36* CREATININE mg/dL 0.98 0.94 1.12 GLUCOSE mg/dL 223* 127* 108* CALCIUM mg/dL 9.1 9.3 9.3 Results from last 7 days Lab Units 12/01/19 0635 11/30/19 1245 WBC K/mcL 8.56 8.72 HGB g/dL 11.2* 10.8* HCT % 35.6* 35.4* PLT K/mcL 232 243 Results from last 7 days Lab Units 11/30/19 1245 ALK PHOS U/L 67 BILIRUBIN TOTAL mg/dL 0.3 TOTAL PROTEIN g/dL 6.5 ALTR U/L 56 AST U/L 42 Current Cultures: 12/02/2019 Right Foot Tissue Aerobic Culture: Normal [place] After 24 Hours. Preliminary. 12/02/2019 Right Foot Tissue AFB Culture: No Acid Fast Bacilli Seen. Preliminary. 12/01/2019 Blood Culture #1: No Growth After 48 Hours. Preliminary. 12/01/2019 Blood Culture #2: No Growth After 48 Hours. Preliminary. 11/30/2019 Right Foot Wound Aerobic Culture: Normal [place] After 48 Hours. Final. 11/21/2019 Left Leg Wound Aerobic Culture: Normal [place] After 48 Hours. Final. 11/20/2019 Right Foot Tissue Aerobic Culture: Moderate Growth Enterobacter cloacae complex, S=Youssef Sensitive. Final. 11/20/2019 Right Foot Tissue Anaerobic Culture: No Anaerobic Growth at 2 Days. Final. 11/20/2019 Right Foot Bone Aerobic Culture: Light Growth Enterobacter Cloacae Complex, S=Youssef Sensitive. Final. 11/20/2019 Right Foot Bone Anaerobic Culture: No Anaerobic Growth at 2 Days. Final. Recent Cultures: 05/30/2019 Right Foot Tissue Aerobic Culture: Normal Chalino After 48 Hours. Final. 05/30/2019 Right Foot Tissue Anaerobic Culture: No Anaerobic Growth at 2 Days. Final. 03/23/2019 Right Foot Wound Aerobic Culture: Heavy Growth Raoultella Planticola, R=Ampicillin, S=Remainder of panel. 03/09/2019 Right Foot Wound Aerobic Culture: Normal Chalino After 48 Hours. Final. 02/09/2019 Right Foot Wound Aerobic Culture: Normal Chalino After 48 Hours. Final. 01/19/2019 Right Toe Two Wound Aerobic Culture: Heavy Growth Enterobacter Cloacae Complex, S=Youssef Sensitive. Final. Radiology: Right Foot X-Ray 12/02/2019 Intraoperative fluoroscopy provided. Severe bony deformity of the foot as described. Please correlate with operative note. Chest X-Ray 11/23/2019 1. Right arm PICC line in place with tip in superior vena cava. 2. No acute pulmonary disease. 3. Cardiomegaly with evidence of prior open heart surgery. 4. No acute osseous abnormality Right Foot X-Ray 11/20/2019 IMPRESSION: Intraoperative fluoroscopy for localization during right foot and ankle reconstruction and fixation. Please see operative report for details. Left Ankle X-Ray Ordered 11/20/2019 Right Foot X-Ray 11/20/2019 FINDINGS: Two views of the right foot were obtained. There are advanced changes of Charcot arthropathy throughout the right midfoot which appears similar compared to prior examination. There are postsurgical changes of resection of the right 2nd toe proximal phalangeal head. IMPRESSION: 1. Advanced changes of Charcot arthropathy throughout the right midfoot which appear unchanged compared to prior examination. Chest AP/PA X-Ray 11/16/2019 1. No acute pulmonary disease. 2. Cardiomegaly, with evidence of prior open heart surgery. 3. Multilevel degenerative changes of the thoracic spine. MR Right Foot 05/19/2019 1. There is a superficial soft tissue ulcer again seen along the plantar aspect of the midfoot, butthere is no evidence of abscess or osteomyelitis in this region. 2. Stable appearance of the sequela of severe neuropathic arthropathy of the midfoot with collapse of the midfoot again seen resulting in a rocker bottom deformity. 3. A moderate amount of diffuse subcutaneous edema along the dorsum of the foot may be due to reactive edema or a cellulitis, but this is nonspecific. Right Foot X-Ray 04/28/2019 1. Soft tissue irregularity involving the plantar aspect of the foot likely representing the reported ulcer. No bony destruction to suggest osteomyelitis. 2. No evidence of radiopaque foreign body. 3. Stable deformity and degenerative changes involving the midfoot. Findings are consistent with Charcot joint. NM White Cell Scan Spot Limited 03/08/2017 FINDINGS: A focal area of intense abnormal white blood cell migration is noted central plantar aspect of the right foot corresponding to the area of the wound demonstrated radiographically. No other focus of white blood cell migration abnormality is evident within the right or left foot. IMPRESSION: Focal area of abnormal white blood cell migration at the plantar aspect central right foot may be at the wound itself or may be involving the bone with associated fracture as demonstrated radiographically. Anatomic detail is insufficient for differentiation between the two. Renal U/S 03/07/2017 IMPRESSION: Severe thickening of the urinary bladder wall. This could be due to outlet obstruction with hypertrophy of the wall. If there is no such history, this should be evaluated with cystoscopy. CVPS: Arterial Doppler: not on file Venous Doppler: not on file 2D Echo 11/23/2019 Moderate LV enlargement with LVH. Global systolic dysfunction with segmental features. LVEF 30% Elevated LV filling pressures RV is dilated with severe RV dysfunction Mild mitral annular calcification, mild thickening of the aortic valve without hemodynamically significant valvular disease There is a atrial level right to left shunt identified with saline contrast with free breathing andValsalva most likely via PFO LVEF unchanged from to previous echo from 2017 Surgeries: Please see above for surgical history Procedure: Right Foot I&D ADJUSTMENT EXTERNAL FIXATOR Date: 12/02/2019 Surgery: Alena Mora DPM Procedure: RIGHT FOOT RECONSTRUCTION WITH APPLICATION OF CIRCULAR STATIC EXTERNAL FIXATION Date: 11/20/2019 Surgeon: Alena Mora DPM Procedure: ARTHROPLASTY 2ND TOE RIGHT FOOT Date: 01/25/2019 Surgeon: Rosa M Robles DPM Pathology: not on file * Phoebe Duncan RN - 02/16/2020 8:56 AM EDT Date: 02/16/2020 New labs/ results as of last note: 02/09/2020 CBC Auto Differential .. Component Ref Range & Units 7d ago (02/09/20) 1mo ago (12/28/19) 2mo ago (12/18/19) 2mo ago (12/12/19) 2mo ago (12/07/19) 2mo ago (12/05/19) 2mo ago (12/02/19) WBC 4.50 - 11.00 K/mcL 6.01 4.66 6.38 4.12Low 6.95 7.98 9.43 RBC 4.50 - 5.90 M/mcL 4.53 4.42Low 4.44Low 4.13Low 4.23Low 4.22Low 4.29Low Hemoglobin 13.5 - 17.5 g/dL 12.1Low 11.6Low 11.7Low 10.8Low 11.3Low 11.4Low 11.5Low Hematocrit 41.0 - 53.0 % 38.2Low 38.0Low 37.8Low 35.6Low 36.8Low 36.3Low 36.7Low MCV 80.0 - 100.0 fL 84.3 86.0 85.1 86.2 87.0 86.0 85.5 MCH 26.0 - 34.0 pg 26.7 26.2 26.4 26.2 26.7 27.0 26.8 MCHC 31.0 - 37.0 g/dL 31.7 30.5Low 31.0 30.3Low 30.7Low 31.4 31.3 Platelets 150 - 400 K/mcL 196 182 323 203 210 228 Comprehensive Metabolic Panel Component Ref Range & Units 7d ago (02/09/20) 1mo ago (12/28/19) 2mo ago (12/18/19) 2mo ago (12/12/19) 2mo ago (12/07/19) 2mo ago (12/05/19) 2mo ago (12/02/19) Sodium 135 - 145 mmol/L 142 142 142 140 138 139 137 Potassium 3.5 - 5.1 mmol/L 4.3 4.3 4.5 4.3 3.9 4.1 4.7 Chloride 98 - 108 mmol/L 109High 109High 106 106 104 104 102 Bicarbonate 21 - 32 mmol/L 28 31 25 30 29 30 30 Anion Gap 10 - 20 mmol/L 9Low 6Low 16 8Low 9Low 9Low 10 Glucose 65 - 99 mg/dL 205High 135High 82 167High 243High 223High 256High BUN 8 - 25 mg/dL 22 18 23 26High 17 19 19 Creatinine 0.50 - 1.30 mg/dL 0.94 0.71 1.04 0.89 0.86 0.86 1.06 eGFR >=60 mL/min/1.73 m2 90 104 79 95 96 96 78 BUN/Creatinine Ratio 10.0 - 20.0 23.4High 25.4High 22.1High 29.2High 19.8 22.1High 17.9 Total Protein 6.0 - 8.0 g/dL 6.9 7.0 7.2 6.7 6.6 6.4 6.7 Albumin 3.2 - 5.2 g/dL 3.5 3.1Low 3.0Low 2.5Low 2.4Low 2.4Low 2.4Low Calcium 8.4 - 10.2 mg/dL 9.2 9.2 9.6 9.7 9.4 9.1 9.2 Alkaline Phosphatase 40 - 150 U/L 72 93 94 83 76 75 82 AST 0 - 45 U/L 14 16 20 35 28 20 32 Total Bilirubin 0.0 - 1.3 mg/dL 0.3 0.4 0.3 0.3 0.4 0.4 0.4 ALT 14 - 65 U/L 19 19 27 52 40 31 53 CRP, Inflammation Component Ref Range & Units 7d ago (02/09/20) 1mo ago (12/28/19) 2mo ago (12/18/19) 2mo ago (12/12/19) 2mo ago (12/05/19) 2mo ago (12/02/19) 2mo ago (11/27/19) CRP(Inflammation) <=10.0 mg/L 5.7 6.4 18.7High 52.4High 85.3High 76.1High 69.0High Sedimentation Rate Component Ref Range & Units 7d ago (02/09/20) 1mo ago (12/28/19) 2mo ago (12/18/19) 2mo ago (12/12/19) 2mo ago (12/05/19) 2mo ago (12/02/19) 2mo ago (11/27/19) Sed Rate 0 - 20 mm/hr 24High 33High 72High 91High 85High 93High 94High Update from previous note Current Antibiotic: Doxycycline 100 mg PO daily for 6 weeks - Started 01/03/2020 Previous Antibiotic: Doxycycline 100 mg BID for 6 weeks - Start 01/03/2020 Merrem 1,000 mg IV every 12 Hours until January 02, 2020 ([facility]) Rocephin 2 gm IV every 24 Hours Ancef 2,000 mg IV every 8 Hours Pre/Post Procedure Dressings: Right foot - Clean pins and wires with alcohol and paint with betadine. Kb to right great toe. Per Dr. Mora. Current culture: 12/28/2019 - Right foot, aerobic culture: Normal Chalino after 48 hours. Recent Cultures: 12/21/2019 - Right foot, aerobic - normal chalino after 48 hours 12/21/2019 - Right foot, anaerobic: No anaerobic growth at 2 days. 12/10/2019 Right Foot Wound Aerobic Culture: Normal Chalino After 48 Hours. Final 12/10/2019 Right foot wound, anaerobic culture: No anaerobic growth at 2 days. Final 12/08/2019 Urine Aerobic Culture: No Growth (<1,000 CFU/mL). Final. 12/07/2019 Urine Aerobic Culture on arrival to Nursing Rehab Unit: No Growth (<1,000 CFU/mL). Final. 12/02/2019 Right Foot Tissue Aerobic Culture: Normal Chalino After 48 Hours. Final. 12/02/2019 Right Foot Tissue AFB Culture: No Acid Fast Bacilli after 8 weeks. Final. 12/02/2019 Right Foot Tissue Anaerobic Culture: No Anaerobic Growth at 2 Days. Final. 12/02/2019 Right Foot Tissue Fungus Culture: No fungus isolated at 4 weeks. Final. 11/30/2019 Right Foot Wound Aerobic Culture: Normal Chalino After 48 Hours. Final. 11/21/2019 Left Leg Wound Aerobic Culture: Normal Chalino After 48 Hours. Final. 11/20/2019 Right Foot Tissue Aerobic Culture: Moderate Growth Enterobacter cloacae complex, S=Youssef Sensitive. Final. 11/20/2019 Right Foot Tissue Anaerobic Culture: No Anaerobic Growth at 2 Days. Final. 11/20/2019 Right Foot Bone Aerobic Culture: Light Growth Enterobacter Cloacae Complex, S=Youssef Sensitive. Final. 11/20/2019 Right Foot Bone Anaerobic Culture: No Anaerobic Growth at 2 Days. 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 Mora podiatry consulted to manage wound. Extensive wound care is needed. Non wt bearing. Essential hypertension Assessment & Plan Monitor blood pressure per shift. Check kidney function. Continue coreg Benign prostatic hyperplasia with urinary retention Assessment & Plan Has been straight cathing at home. Follows with Dr. Izquierdo. Bladder training, remove schulte, bladder scan and straight cath. Pt has no bladder sensation Mixed hyperlipidemia Assessment & Plan Continue lipitor and fenofibrate. Uses crestor at home. Monitor liver function JAYDEN (obstructive sleep apnea) Assessment & Plan Encourage pt to wear cpap. Wear nasal cannula at 2L at night if he refuses Cpap 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) Assessment & Plan Consult endocrinology. DM has not been well controlled and the infection is making it worse. Monitor blood glucose ACHS, continue lantus, preprandial humalog, and sliding scale. Diabetic diet * Osteomyelitis (HCC) Assessment & Plan Consult ID and continue IV antibiotics. Non wt bearing on right foot. 12/07 Dr. Mora came and had nurse change leg dressing on his left foot with the external fixator. It took over an hour to clean and wrap each pin. Pt tolerated well. Compliant with therapy. Continues antibiotics 12/08 Afebrile, continues with antibiotic therapy DM being managed by endocrinology. Blood pressure is stable. Complaint with therapy 12/10 Glucose is becoming controlled. External fixator is intact No signs of infection Blood pressure is controlled New culture taken of wound due to some drainage. Dr. Andrey awad waiting for results 12/11 Blood glucose is controlled. Angelina Emanuel has changed antibiotic to Merepenem Pain is controlled. Constipation is resolved, metamucil has been started. Blood pressure is controlled. Afebrile 12/12 Making good progress with stand pivots. BP and HR stable. Has not had a BM today. But is taking metamucil daily, so he feels he can go tomorrow. Left leg wrapping of external fixator 12/13 Bladder training is continuing. Pt has been self cathing once at night for 4 years. He was previously able to void during the day. Will bladder train, start flomax and self cath, set up supplies upon discharge and follow up with DR Izquierdo, urologist. BP and HR stable Meropenem continues per ID Right foot dressing intact around external fixator Gaining strength in isela arms and left leg for transfers. 12/14 Continues bladder training. Small BM but feeling constipated BP and HR stable. Agreed to stay a few more days Continue merepenem 12/15 Gaining strength and balance to be able to manage at home to shift off of wheelchair. BP and HR stable. Dressing intact. 12/17 Plan for discharge in the am. Dr. Mora will follow pt in the wound clinic, for his right foot dressing. Pt will have home health. Will need follow up with urology. 12/18 Discharge home today Reviewed all home going medications with pt. BP and HR stable. Continues iv antibiotics for osteomyelitis. Will have appts with Dr. Mora and DR. Bowden, Dr. Izquierdo upon discharge for right foot surgery, DM and urinary retention. Gained strength and coordination to be able to manage at home by himself. SUBJECTIVE: History Since Last Visit: denies pain Current Scheduled Meds: aspirin 162 mg Oral Daily atorvastatin 40 mg Oral Nightly calcium carbonate 1,000 mg Oral Daily carvediloL 12.5 mg Oral BID docusate sodium 100 mg Oral Daily fenofibrate 160 mg Oral Daily with breakfast gabapentin 300 mg Oral Q8H LESLEY insulin glargine 35 Units Subcutaneous BID lispro insulin 0-15 Units Subcutaneous at bedtime insulin lispro 0-30 Units Subcutaneous TID AC levothyroxine 112 mcg Oral Daily magnesium oxide 400 mg Oral Daily melatonin 10 mg Oral at bedtime meropenem 1,000 mg Intravenous Q12H metFORMIN 1,000 mg Oral BID with meals psyllium husk 1 packet Oral Daily sodium chloride (PF) 10 mL Intracatheter Q8H LESLEY tamsulosin 0.4 mg Oral After evening meal Review of Systems: All other systems reviewed and negative other than HPI OBJECTIVE: Physical Examination: Vital Signs: BP 112/70 Pulse 72 Temp 98.2 F (36.8 C) (Oral) Resp (!) 20 Ht 5' 11 Wt 116 kg (255 lb 11.7 oz) SpO2 93% BMI 35.67 kg/m Physical Exam General Appearance: Alert, well appearing, and in no acute distress. HEENT: Head - Normocephalic, atraumatic. Eyes - ALEKS bilaterally and EOMI. Ears - normal external appearance, hearing intact. Nose - normal, no erythema. Throat - mucous membranes moist, pharynx without lesions. Neck: Supple, trachea midline. Cardiovascular: S1, S2 normal. No murmurs, rubs, clicks or gallops appreciated. No pedal edema. Respiratory: Lungs clear to auscultation, no wheezes, rales or rhonchi heard. Abdomen: Soft, non-tender, normal bowel sounds, non-distended, no masses or organomegaly appreciated. Neurological: Limited movement in lower ext. Numbness from knee down. Musculoskeletal: Right foot s/p surgery, swollen. Left foot swollen from surgery history Skin: Normal coloration and turgor. No rashes. External fixator with large incision, on right foot Psych: Alert, oriented x 3. Normal mood and affect. Laboratory and Additional Data Reviewed: Results/Medications Reviewed 12/19/19 3:00 PM: Results from last 7 days Lab Units 12/18/19 1340 SODIUM mmol/L 142 POTASSIUM mmol/L 4.5 CHLORIDE mmol/L 106 BUN mg/dL 23 CREATININE mg/dL 1.04 GLUCOSE mg/dL 82 CALCIUM mg/dL 9.6 Results from last 7 days Lab Units 12/18/19 1340 WBC K/mcL 6.38 HGB g/dL 11.7* HCT % 37.8* PLT K/mcL 323 Results from last 7 days Lab Units 12/18/19 1340 ALK PHOS U/L 94 BILIRUBIN TOTAL mg/dL 0.3 TOTAL PROTEIN g/dL 7.2 ALTR U/L 27 AST U/L 20 CULTURES: Reviewed 12/19/19 3:00 PM Radiology/Imaging: Reviewed 12/19/19 3:00 PM * Shavon Vogel RN - 12/19/2019 2:11 PM EDT [facility] Complex Discharge Groups Anticipated Discharge Plan Anticipated HME: Wheel chair, 12/02 [employer] Anticipated Home Care Needs: Home health care Anticipated Facility Type: Home care Discharge Readiness Expected Discharge Date: 12/19/19 Barriers to Discharge: Other (Comment)(Lives alone) [facility] Disposition D/C Disposition: Home Health Care Services Related to Current Admission?: Yes Agency/Destination: [facility] Home Care Needs : Home health care, Infusion Pharmacy Infusion Agency: [facility] HME: 12/02 [employer] HME Agency: [facility] Transportation Type: Auto Transportation Company/Agency Name: (friend) Options Reviewed: Possible expense, Explained services/benefits(Deferred list offered) Reason for Choice: Patient/Family preference Discharge Readiness Expected Discharge Date: 12/19/19 Barriers to Discharge: Other (Comment)(Lives alone) Pt to d/c to home with family support. [facility] for skilled services, will start robin gob teaching at home. HME Per [facility]. Nsg to change schulte prior to d/c, discussed pt f/u appt with him & provider, pt wanted to f/u with Dr Izquierdo as he is in network for his insurance. No other needs identified, case will close at d/c. * Maria Isabel Awad MD - 12/19/2019 10:26 AM EDT 12/04/2019 Patient Name: Dyllan Huertas Admit Date: MR #: [id number] : 1960 Physicians: Rohit Aguilar MD (Family); No ref. provider found (Referring) Assessment and Plan: Impression Impression Right foot ulcer status post surgical intervention Severe Charcot deformity status post surgical intervention Enterobacter cloaca infection and gram-negative infection see cultures below RaullTela which is a gram-negative Acute osteomyelitis bone culture on 11/20/2019+ for the same pathogen that was present in January 2019is Enterobacter cloaca pansensitive RAJINDER none on chart 11/24/2019 Osteomyelitis as bone culture is positive from 11/20/2019 for Enterobacter cloaca 11/30/2019 New drainage from the pin site Elevated sed rate Elevated CRP Osteomyelitis right foot 12/01/2019 Osteomyelitis right foot Delayed healing of the plantar foot postop wound Cellulitis of the foot 12/04/2019 Status post surgical intervention with incision and drainage by Dr. Mora on 12/02/2019 cultures now with normal chalino AFB and fungus negative 12/05/2019 Sed rate 85 CRP 85 Per rehab physician there is a risk for the left ankle issues especially with diabetic neuropathy in the left foot and he has had right foot surgery 12/06/2019 OR cultures negative elevated CRP could be just postop We will continue IV antibiotics as planned till January 01 Rocephin 2 g every 24 hours 12/11/2019 Right foot wound with some maceration drainage 12/12/2019 CRP improving Plan 12/18/2019 OPAT referral IV meropenem 1 g every 12 till January 01 Home IV antibiotic by [facility] Any dressing orders would be per Dr. Mora CBC CMP sed rate CRP every Wednesday12/14/2019 and 12/15/2019 Continue IV meropenem till January 01 if he can manage to do that Await a picture by podiatry upon dressing change today I have discussed with podiatry Will plan for CBC CMP sed rate CRP next week 12/12/2019 Patient tolerating the meropenem Will await Dr. Mora to check the dressing on the wound at her next rounds Discontinue Rocephin Start meropenem 1 g IV every 12 for the Enterobacter and the other gram-negative that he had seen in the cultures especially with the extensive surgery that was done and he had some drainage on the weekend Continue IV antibiotics till January 01 CBC CMP sed rate CRP Will discuss with Dr. Lopez and Dr. Mora 12/08/2019 Rocephin continued till January 01 Urinary retention to be evaluated by Dr. Lopez Will await for Dr. Mora to do the dressings 12/07/2019 Rocephin 2 g IV 24 hours till January 01 Discontinue Schulte catheter CBC CMP sed rate CRP on Wednesday12/06/2019 Rocephin 2 g to 24 hours till January 01 CBC CMP sed rate CRP periodically Transfer to rehab he has been accepted Will follow the patient in rehab with Dr. Lopez and Dr. Mora 12/05/2019 Rocephin 2 g IV 24 hours continue till January 01 because of the second surgery Elevated sed rate CRP will be followed Await transfer to rehab if approved and bed available 12/04/2019 Rocephin 2 g IV every 24 hours CBC CMP sed rate CRP Rehab referral with Dr. Lopez here if possible We will discuss with podiatry I have discussed with hospitalist OR cultures normal chalino negative AFB and fungus Blood cultures negative so far 12/01/2019 Continue Rocephin till further cultures available CBC CMP sed rate CRP Blood cultures x2 half an hour apart He did bleed well even in the wound clinic yesterday at some point will order arterial Dopplers I have discussed with podiatry at length 11/30/2019 Culture the pin site that is bleeding and draining Follow-up CBC Liver function test Rocephin 2 g IV every 24 hours continue till December 18 May need to go up to additional 2 weeks afterMar which will be January 01 we will decide based on lab results and clinical response If the culture of the pin site shows any additional pathogens may need to readmit for additional IVantibiotics and streamlining treatment Revisit 1 week both I have discussed with podiatry Chief Complaint/Reason for Visit: I am seeing this patient at the request of Dr. Boogie Phan MD. I have reviewed the current hospital record, available laboratory, cardiology and imaging studies as well as available out patient records. History of Present Illness: Admission H&P by Boogie Phan MD on 11/30/2019: Dyllan Huertas is a 59 y.o. male presenting from home with h/o diabetes on disability since 2014 related to a Charcot foot and diabetes developed an ulcer in the beginning of 2018 was being followed by Dr. Robles at the office we have cultures from last year in January with Enterobacter and since then culture with gram-negative bacteria also was seen by Dr. Mora was found to have severe Charcot a corrective surgery was done with placement of an external fixator on 11/20. Today at wound clinic follow up was found to have increased drainage from one of the pin sites, being admitted for continued IV ATB and possible OR/ exploration in am. Exam: Tmax: 99 Urine Output: 2000 Stool: not recorded PACU Vitals 12/19/19 0757 BP: 112/70 Pulse: 72 Resp: (!) 20 Temp: 98.2 F (36.8 C) SpO2: 93% Allergies: no known allergies. Current Facility-Administered Medications: acetaminophen (TYLENOL) tablet 650 mg, 650 mg, Oral, Q4H PRN, Helena Sheldon CNP, 650 mg at 12/09/19 2142 albuterol (PROVENTIL) 2.5 mg /3 mL (0.083 %) nebulizer solution 2.5 mg, 2.5 mg, Inhalation, Q2H PRN, Heelna Sheldon CNP aspirin EC tablet 162 mg, 162 mg, Oral, Daily, Helena Sheldon CNP, 162 mg at 12/19/19 0835 atorvastatin (LIPITOR) tablet 40 mg, 40 mg, Oral, Nightly, Helena Sheldon CNP, 40 mg at 12/19/19 0834 bisacodyL (DULCOLAX) suppository 10 mg, 10 mg, Rectal, Daily PRN, Helena Sheldon CNP, 10 mg at12/08/19 2242 calcium carbonate (TUMS) chewable tablet 1,000 mg, 1,000 mg, Oral, Daily, Helena Sheldon CNP, 1,000 mg at 12/19/19 0900 carvediloL (COREG) tablet 12.5 mg, 12.5 mg, Oral, BID, Helena Sheldon CNP, 12.5 mg at docusate sodium (COLACE) capsule 100 mg, 100 mg, Oral, Daily, Helena Sheldon CNP, 100 mg at 12/19/19 0841 docusate sodium (COLACE) capsule 100 mg, 100 mg, Oral, BID PRN, Helena Sheldon CNP, 100 mg at 12/17/19 1642 fenofibrate tablet 160 mg, 160 mg, Oral, Daily with breakfast, Helena Sheldon CNP, 160 mg at 12/19/19 0835 gabapentin (NEURONTIN) capsule 300 mg, 300 mg, Oral, Q8H LESLEY, Helena Sheldon CNP, 300 mg at 12/19/19 0503 insulin glargine (LANTUS) injection 35 Units, 35 Units, Subcutaneous, BID, Andrés Andre CNP, 35 Units at 12/19/19 0841 insulin lispro (HumaLOG) injection 0-15 Units, 0-15 Units, Subcutaneous, at bedtime, Helena Sheldon CNP, 0 Units at 12/18/19 2111 insulin lispro (HumaLOG) injection 0-30 Units, 0-30 Units, Subcutaneous, TID AC, Sera Bowden MD, 12 Units at 12/19/19 0837 levothyroxine (SYNTHROID, LEVOTHROID) tablet 112 mcg, 112 mcg, Oral, Daily, Helena Sheldon CNP, 112 mcg at 12/19/19 0503 magnesium oxide (MAG-OX) tablet 400 mg, 400 mg, Oral, Daily, Helena Sheldon CNP, 400 mg at 12/19/19 0835 melatonin Tab 10 mg, 10 mg, Oral, at bedtime, Helena Sheldon CNP, 10 mg at 12/18/19 2110 meropenem (MERREM) 1000 mg in sodium chloride (NS) 0.9% 50 mL (premix), 1,000 mg, Intravenous, Q12H, Maria Isabel Awad MD, Stopped at 12/19/19 0458 metFORMIN (GLUCOPHAGE) tablet 1,000 mg, 1,000 mg, Oral, BID with meals, Helena Sheldon CNP, 1,000 mg at 12/19/19 0834 naloxone (NARCAN) injection 0.1 mg, 0.1 mg, Intravenous, PRN AND Notify physician, , , Until Discontinued AND naloxone (NARCAN) injection 0.4 mg, 0.4 mg, Intravenous, PRN, Helena Sheldon CNP nitroGLYCERIN (NITROSTAT) SL tablet 0.4 mg, 0.4 mg, Sublingual, Q5 Min PRN, Helena Sheldon CNP ondansetron (ZOFRAN-ODT) disintegrating tablet 4 mg, 4 mg, Oral, Q6H PRN, Helena Sheldon CNP psyllium (METAMUCIL) powder 1 packet, 1 packet, Oral, Daily, Kyung Doran [facility],PharmD, 1 packet at 12/19/19 0835 senna (SENOKOT) tablet 8.6 mg, 1 tablet, Oral, BID PRN, Helena Sheldon CNP sodium chloride (PF) (NS) flush 10 mL, 10 mL, Intracatheter, Q8H LESLEY, Helena Sheldon CNP, 10 mL at 12/19/19 0500 sodium chloride (PF) (NS) flush 10-20 mL, 10-20 mL, Intracatheter, PRN, Helena Sheldon CNP sodium phosphates (FLEETS ADULT) 19-7 gram/118 mL enema 1 each, 1 each, Rectal, Daily PRN, Catarina Sheldon CNP tamsulosin (FLOMAX) 24 hr capsule 0.4 mg, 0.4 mg, Oral, After evening meal, Helena Sheldon CNP, 0.4 mg at 12/18/19 1700 traZODone (DESYREL) tablet 50 mg, 50 mg, Oral, Nightly PRN, Helena Sheldon, 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 PMH/PSH/SH/ reviewed, no change except: Status post surgical intervention by Dr. Mora on 12/02/2019 12/05/2019 Patient was seen by rehab physician rehab evaluation in progress patient's left ankle is at risk because of right foot surgery and diabetic neuropathy in the left foot also 12/07/2019 patient is now in rehab Review of Systems: All systems were reviewed and negative except: Denies any fever chills no pain in the right leg and foot 12/06/2019 denies any fever chills or diarrhea 12/08/2019 Schulte had to be reinserted for urinary increase residual 12/11/2019 Dressing was changed by Dr. Mora on Wednesday there was some drainage culture was done there was some maceration culture result is normal chalino Dr. Mora's note was reviewed by mo Medications Reviewed. Chart Reviewed. Exam Findings: Constitutional: HENT: Pupils reactive head: No oral candidiasis Eyes: No icterus Neck: Supple Cardiovascular: Heart S1-S2 2 by systolic murmur present no S3 Murmur Pulmonary/Chest: Clear Abdominal: Soft Musculoskeletal: No calf tenderness on the right leg Neurological: Has diabetic neuropathy with Charcot is able to wiggle the toes Skin postop dressing with Kerlix no drainage noted today no foul odor Patient drain has been removed by Dr. Mora over the weekend There was some maceration seen on the wound site on 12/10/2019 culture is normal chalino Schulte: Bard Schulte catheter with clear urine is being clamped now IV: Midline in the right arm site looks good denies any discomfort other: External fixator in place no drainage noted on the dressing wound to be examined by podiatrytoday Pin sites without any bleeding Zechariah bandage in place with no drainage Laboratory and Additional Data Reviewed: Date: 12/19/2019 No new labs/results as of last note Update from previous note Tmax: 98.5 Urine Output: 2400 Stool: X1 Current Antibiotics: Merrem 1,000 mg IV every 12 Hours until January 02, 2020 Previous Antibiotic: Rocephin 2 gm IV every 24 Hours Ancef 2,000 mg IV every 8 Hours Pre/Post Procedure Dressings: Per Dr. Mora I have personally reviewed the labs and results Test results Laboratory and Additional Data Reviewed: Labs to de drawn every Wednesday (CBC, CMP, Sed Rate, CRP) Current Cultures: 12/10/2019 Right Foot Wound Aerobic Culture: Normal Chalino After 48 Hours. Final 12/10/2019 Right foot wound, anaerobic culture: No anaerobic growth at 2 days. Final 12/08/2019 Urine Aerobic Culture: No Growth (<1,000 CFU/mL). Final. 12/07/2019 Urine Aerobic Culture on arrival to Nursing Rehab Unit: No Growth (<1,000 CFU/mL). Final. 12/02/2019 Right Foot Tissue Aerobic Culture: Normal Chalino After 48 Hours. Final. 12/02/2019 Right Foot Tissue AFB Culture: No Acid Fast Bacilli Seen. Preliminary. 12/02/2019 Right Foot Tissue Anaerobic Culture: No Anaerobic Growth at 2 Days. Final. 12/02/2019 Right Foot Tissue Fungus Culture: Fungal Culture in Progress. Preliminary. 12/01/2019 Blood Culture #1: No Growth After 5 Days. Final. 12/01/2019 Blood Culture #2: No Growth After 5 Days. Final. 11/30/2019 Right Foot Wound Aerobic Culture: Normal Chalino After 48 Hours. Final. 11/21/2019 Left Leg Wound Aerobic Culture: Normal Chalino After 48 Hours. Final. 11/20/2019 Right Foot Tissue Aerobic Culture: Moderate Growth Enterobacter cloacae complex, S=Youssef Sensitive. Final. 11/20/2019 Right Foot Tissue Anaerobic Culture: No Anaerobic Growth at 2 Days. Final. 11/20/2019 Right Foot Bone Aerobic Culture: Light Growth Enterobacter Cloacae Complex, S=Youssef Sensitive. Final. 11/20/2019 Right Foot Bone Anaerobic Culture: No Anaerobic Growth at 2 Days. Final Date: 12/18/2019 No new labs/results as of last note Update from previous note Tmax: 98.1 Urine Output: 3950 Stool: not recorded Current Antibiotics: Merrem 1,000 mg IV every 12 Hours Previous Antibiotic: Rocephin 2 gm IV every 24 Hours Ancef 2,000 mg IV every 8 Hours Pre/Post Procedure I have personally reviewed the labs and results Test results Laboratory and Additional Data Reviewed: Current Cultures: 12/10/2019 Right Foot Wound Aerobic Culture: Normal Chalino After 48 Hours. Final 12/10/2019 Right foot wound, anaerobic culture: No anaerobic growth at 2 days. Final 12/08/2019 Urine Aerobic Culture: No Growth (<1,000 CFU/mL). Final. 12/07/2019 Urine Aerobic Culture on arrival to Nursing Rehab Unit: No Growth (<1,000 CFU/mL). Final. 12/02/2019 Right Foot Tissue Aerobic Culture: Normal Chalino After 48 Hours. Final. 12/02/2019 Right Foot Tissue AFB Culture: No Acid Fast Bacilli Seen. Preliminary. 12/02/2019 Right Foot Tissue Anaerobic Culture: No Anaerobic Growth at 2 Days. Final. 12/02/2019 Right Foot Tissue Fungus Culture: Fungal Culture in Progress. Preliminary. 12/01/2019 Blood Culture #1: No Growth After 5 Days. Final. 12/01/2019 Blood Culture #2: No Growth After 5 Days. Final. 11/30/2019 Right Foot Wound Aerobic Culture: Normal Chalino After 48 Hours. Final. 11/21/2019 Left Leg Wound Aerobic Culture: Normal Chalino After 48 Hours. Final. 11/20/2019 Right Foot Tissue Aerobic Culture: Moderate Growth Enterobacter cloacae complex, S=Youssef Sensitive. Final. 11/20/2019 Right Foot Tissue Anaerobic Culture: No Anaerobic Growth at 2 Days. Final. 11/20/2019 Right Foot Bone Aerobic Culture: Light Growth Enterobacter Cloacae Complex, S=Youssef Sensitive. Final. 11/20/2019 Right Foot Bone Anaerobic Culture: No Anaerobic Growth at 2 Days. Final Date: 12/15/2019 New labs/results as of last note Update from previous note Tmax: 98.7 Urine Output: 1900 Stool: not recorded Current Antibiotics: Merrem 1,000 mg IV every 12 Hours Previous Antibiotic: Rocephin 2 gm IV every 24 Hours Ancef 2,000 mg IV every 8 Hours Pre/Post Procedure I have personally reviewed the labs and results Test results Laboratory and Additional Data Reviewed: Current Cultures: 12/10/2019 Right Foot Wound Aerobic Culture: Normal Chalino After 48 Hours. Final 12/10/2019 Right foot wound, anaerobic culture: No anaerobic growth at 2 days. Final 12/08/2019 Urine Aerobic Culture: No Growth (<1,000 CFU/mL). Final. 12/07/2019 Urine Aerobic Culture on arrival to Nursing Rehab Unit: No Growth (<1,000 CFU/mL). Final. 12/02/2019 Right Foot Tissue Aerobic Culture: Normal Chalino After 48 Hours. Final. 12/02/2019 Right Foot Tissue AFB Culture: No Acid Fast Bacilli Seen. Preliminary. 12/02/2019 Right Foot Tissue Anaerobic Culture: No Anaerobic Growth at 2 Days. Final. 12/02/2019 Right Foot Tissue Fungus Culture: Fungal Culture in Progress. Preliminary. 12/01/2019 Blood Culture #1: No Growth After 5 Days. Final. 12/01/2019 Blood Culture #2: No Growth After 5 Days. Final. 11/30/2019 Right Foot Wound Aerobic Culture: Normal Chalino After 48 Hours. Final. 11/21/2019 Left Leg Wound Aerobic Culture: Normal Chalino After 48 Hours. Final. 11/20/2019 Right Foot Tissue Aerobic Culture: Moderate Growth Enterobacter cloacae complex, S=Youssef Sensitive. Final. 11/20/2019 Right Foot Tissue Anaerobic Culture: No Anaerobic Growth at 2 Days. Final. 11/20/2019 Right Foot Bone Aerobic Culture: Light Growth Enterobacter Cloacae Complex, S=Youssef Sensitive. Final. 11/20/2019 Right Foot Bone Anaerobic Culture: No Anaerobic Growth at 2 Days. Final Date: 12/14/2019 New labs/ results as of last note: 12/12/2019 T-Max: 98.6 Output: Urine 2150 ml Stool not recorded Current Antibiotics: Merrem 1,000 mg IV every 12 Hours Previous Antibiotic: Rocephin 2 gm IV every 24 Hours Ancef 2,000 mg IV every 8 Hours Pre/Post Procedure I have personally reviewed the labs and results Test results Laboratory and Additional Data Reviewed: Current Cultures: 12/10/2019 Right Foot Wound Aerobic Culture: Normal Chalino After 48 Hours. Final 12/10/2019 Right foot wound, anaerobic culture: No anaerobic growth at 2 days. Final 12/08/2019 Urine Aerobic Culture: No Growth (<1,000 CFU/mL). Final. 12/07/2019 Urine Aerobic Culture on arrival to Nursing Rehab Unit: No Growth (<1,000 CFU/mL). Final. 12/02/2019 Right Foot Tissue Aerobic Culture: Normal Chalino After 48 Hours. Final. 12/02/2019 Right Foot Tissue AFB Culture: No Acid Fast Bacilli Seen. Preliminary. 12/02/2019 Right Foot Tissue Anaerobic Culture: No Anaerobic Growth at 2 Days. Final. 12/02/2019 Right Foot Tissue Fungus Culture: Fungal Culture in Progress. Preliminary. 12/01/2019 Blood Culture #1: No Growth After 5 Days. Final. 12/01/2019 Blood Culture #2: No Growth After 5 Days. Final. 11/30/2019 Right Foot Wound Aerobic Culture: Normal Chalino After 48 Hours. Final. 11/21/2019 Left Leg Wound Aerobic Culture: Normal Chalino After 48 Hours. Final. 11/20/2019 Right Foot Tissue Aerobic Culture: Moderate Growth Enterobacter cloacae complex, S=Youssef Sensitive. Final. 11/20/2019 Right Foot Tissue Anaerobic Culture: No Anaerobic Growth at 2 Days. Final. 11/20/2019 Right Foot Bone Aerobic Culture: Light Growth Enterobacter Cloacae Complex, S=Youssef Sensitive. Final. 11/20/2019 Right Foot Bone Anaerobic Culture: No Anaerobic Growth at 2 Days. Final Update from previous note Date: 12/12/2019 New labs/results as of last note Update from previous note Tmax: 99.2 Urine Output: 1600 Stool: not recorded Current Antibiotics: Merrem 1,000 mg IV every 12 Hours Previous Antibiotic: Rocephin 2 gm IV every 24 Hours Ancef 2,000 mg IV every 8 Hours Pre/Post Procedure I have personally reviewed the labs and results Test results Laboratory and Additional Data Reviewed: Labs: CMP 12/12/2019 06:11 Glucose: 167 BUN: 26 Creatinine: 0.89 Sodium: 140 Potassium: 4.3 Total Protein: 6.7 Albumin: 2.5 Alk Phos: 83 AST: 35 ALT: 52 Total Bilirubin: 0.3 CBC 12/12/2019 06:11 WBC: 4.12 RBC: 4.13 Hgb: 10.8 Hct: 35.6 Platelets: 203 Lymphocytes Abs: 0.66 CRP 12/12/2019 06:11 52.4 Current Cultures: 12/10/2019 Right Foot Wound Aerobic Culture: Normal Chalino After 24 Hours. Preliminary. 12/08/2019 Urine Aerobic Culture: No Growth (<1,000 CFU/mL). Final. 12/07/2019 Urine Aerobic Culture on arrival to Nursing Rehab Unit: No Growth (<1,000 CFU/mL). Final. 12/02/2019 Right Foot Tissue Aerobic Culture: Normal Chalino After 48 Hours. Final. 12/02/2019 Right Foot Tissue AFB Culture: No Acid Fast Bacilli Seen. Preliminary. 12/02/2019 Right Foot Tissue Anaerobic Culture: No Anaerobic Growth at 2 Days. Final. 12/02/2019 Right Foot Tissue Fungus Culture: Fungal Culture in Progress. Preliminary. 12/01/2019 Blood Culture #1: No Growth After 5 Days. Final. 12/01/2019 Blood Culture #2: No Growth After 5 Days. Final. 11/30/2019 Right Foot Wound Aerobic Culture: Normal Chalino After 48 Hours. Final. 11/21/2019 Left Leg Wound Aerobic Culture: Normal Chalino After 48 Hours. Final. 11/20/2019 Right Foot Tissue Aerobic Culture: Moderate Growth Enterobacter cloacae complex, S=Youssef Sensitive. Final. 11/20/2019 Right Foot Tissue Anaerobic Culture: No Anaerobic Growth at 2 Days. Final. 11/20/2019 Right Foot Bone Aerobic Culture: Light Growth Enterobacter Cloacae Complex, S=Youssef Sensitive. Final. 11/20/2019 Right Foot Bone Anaerobic Culture: No Anaerobic Growth at 2 Days. Final. Date: 12/11/2019 New labs/results as of last note Update from previous note Tmax: 98.7 Urine Output: 2500 Stool: X1 Current Antibiotics: Rocephin 2 gm IV every 24 Hours until 01/02/2020 Previous Antibiotic: Ancef 2,000 mg IV every 8 Hours Pre/Post Procedure I have personally reviewed the labs and results Test results Laboratory and Additional Data Reviewed: U/A 12/08/2019 Glucose: 150 Blood: Small WBC: 7 Bacteria: Rare Labs: Vitamin D, Total 12/07/2019 04:55 16 B12/Folate 12/07/2019 04:55 B12: 828 Folate: >20.0 Ferritin 12/07/2019 04:55 211 Iron 12/07/2019 04:55 30 CMP 12/07/2019 04:55 Glucose: 243 BUN: 17 Creatinine: 0.86 Sodium: 138 Potassium: 3.9 Total Protein: 6.6 Albumin: 2.4 Alk Phos: 76 AST: 28 ALT: 40 Total Bilirubin: 0.4 CBC 12/07/2019 04:54 WBC: 6.95 Hgb: 11.3 Hct: 36.8 Platelets: 210 Lymphocytes Abs: 0.64 CRP 12/05/2019 07:58 85.3 U/A 12/07/2019 Protein: 30 Glucose: >=500 Blood: Small Leukocyte Esterase: Trace Renal Epithelial: <1 Current Cultures: 12/10/2019 Right Foot Wound Aerobic Culture: Rare WBC. Rare Epithelial Cells. No Organisms Seen. Preliminary. 12/08/2019 Urine Aerobic Culture: No Growth (<1,000 CFU/mL). Final. 12/07/2019 Urine Aerobic Culture on arrival to Nursing Rehab Unit: No Growth (<1,000 CFU/mL). Final. 12/02/2019 Right Foot Tissue Aerobic Culture: Normal Chalino After 48 Hours. Final. 12/02/2019 Right Foot Tissue AFB Culture: No Acid Fast Bacilli Seen. Preliminary. 12/02/2019 Right Foot Tissue Anaerobic Culture: No Anaerobic Growth at 2 Days. Final. 12/02/2019 Right Foot Tissue Fungus Culture: Fungal Culture in Progress. Preliminary. 12/01/2019 Blood Culture #1: No Growth After 5 Days. Final. 12/01/2019 Blood Culture #2: No Growth After 5 Days. Final. 11/30/2019 Right Foot Wound Aerobic Culture: Normal Chalino After 48 Hours. Final. 11/21/2019 Left Leg Wound Aerobic Culture: Normal Chalino After 48 Hours. Final. 11/20/2019 Right Foot Tissue Aerobic Culture: Moderate Growth Enterobacter cloacae complex, S=Youssef Sensitive. Final. 11/20/2019 Right Foot Tissue Anaerobic Culture: No Anaerobic Growth at 2 Days. Final. 11/20/2019 Right Foot Bone Aerobic Culture: Light Growth Enterobacter Cloacae Complex, S=Youssef Sensitive. Final. 11/20/2019 Right Foot Bone Anaerobic Culture: No Anaerobic Growth at 2 Days. Final. Date: 12/08/2019 New labs/results as of last note Update from previous note Tmax: 99.2 Urine Output: 4950 Stool: not recorded Current Antibiotics: Rocephin 2 gm IV every 24 Hours until 01/02/2020 Previous Antibiotic: Ancef 2,000 mg IV every 8 Hours Pre/Post Procedure I have personally reviewed the labs and results Test results Laboratory and Additional Data Reviewed: U/A 12/08/2019 Glucose: 150 Blood: Small WBC: 7 Bacteria: Rare Labs: Vitamin D, Total 12/07/2019 04:55 16 B12/Folate 12/07/2019 04:55 B12: 828 Folate: >20.0 Ferritin 12/07/2019 04:55 211 Iron 12/07/2019 04:55 30 CMP 12/07/2019 04:55 Glucose: 243 BUN: 17 Creatinine: 0.86 Sodium: 138 Potassium: 3.9 Total Protein: 6.6 Albumin: 2.4 Alk Phos: 76 AST: 28 ALT: 40 Total Bilirubin: 0.4 CBC 12/07/2019 04:54 WBC: 6.95 Hgb: 11.3 Hct: 36.8 Platelets: 210 Lymphocytes Abs: 0.64 CRP 12/05/2019 07:58 85.3 U/A 12/07/2019 Protein: 30 Glucose: >=500 Blood: Small Leukocyte Esterase: Trace Renal Epithelial: <1 Current Cultures: 12/07/2019 Urine Aerobic Culture on arrival to Nursing Rehab Unit: No Growth, Incubation Continued.Preliminary. 12/02/2019 Right Foot Tissue Aerobic Culture: Normal Chalino After 48 Hours. Final. 12/02/2019 Right Foot Tissue AFB Culture: No Acid Fast Bacilli Seen. Preliminary. 12/02/2019 Right Foot Tissue Anaerobic Culture: No Anaerobic Growth at 2 Days. Final. 12/02/2019 Right Foot Tissue Fungus Culture: Fungal Culture in Progress. Preliminary. 12/01/2019 Blood Culture #1: No Growth After 5 Days. Final. 12/01/2019 Blood Culture #2: No Growth After 5 Days. Final. 11/30/2019 Right Foot Wound Aerobic Culture: Normal Chalino After 48 Hours. Final. 11/21/2019 Left Leg Wound Aerobic Culture: Normal Chalino After 48 Hours. Final. 11/20/2019 Right Foot Tissue Aerobic Culture: Moderate Growth Enterobacter cloacae complex, S=Youssef Sensitive. Final. 11/20/2019 Right Foot Tissue Anaerobic Culture: No Anaerobic Growth at 2 Days. Final. 11/20/2019 Right Foot Bone Aerobic Culture: Light Growth Enterobacter Cloacae Complex, S=Youssef Sensitive. Final. 11/20/2019 Right Foot Bone Anaerobic Culture: No Anaerobic Growth at 2 Days. Final. Radiology: Left Ankle X-Ray 12/07/2019 1. A new screw internally fixes the base of the 5th metatarsal to near anatomic alignment, however this screw is broken/fractured. 2. 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 Lateral subluxation of the 2nd through 5th metatarsal bases is again noted, as well as pes planus deformity. 3. Milder arthritis is noted in the tibiotalar joint and subtalar joint. 4. Large calcaneal enthesophytes are noted at the insertion sites of the plantar fascia and Achilles tendon. 5. No acute fracture, or other acute bony abnormality is seen. Date: 12/07/2019 New labs/results as of last note Update from previous note Tmax: 99.1 Urine Output: 1800 Stool: not recorded Current Antibiotics: Rocephin 2 gm IV every 24 Hours until 01/02/2020 Previous Antibiotic: Ancef 2,000 mg IV every 8 Hours Pre/Post Procedure I have personally reviewed the labs and results Test results Laboratory and Additional Data Reviewed: Labs: Vitamin D, Total 12/07/2019 04:55 16 B12/Folate 12/07/2019 04:55 B12: 828 Folate: >20.0 Ferritin 12/07/2019 04:55 211 Iron 12/07/2019 04:55 30 CMP 12/07/2019 04:55 Glucose: 243 BUN: 17 Creatinine: 0.86 Sodium: 138 Potassium: 3.9 Total Protein: 6.6 Albumin: 2.4 Alk Phos: 76 AST: 28 ALT: 40 Total Bilirubin: 0.4 CBC 12/07/2019 04:54 WBC: 6.95 Hgb: 11.3 Hct: 36.8 Platelets: 210 Lymphocytes Abs: 0.64 CRP 12/05/2019 07:58 85.3 U/A 12/07/2019 Protein: 30 Glucose: >=500 Blood: Small Leukocyte Esterase: Trace Renal Epithelial: <1 Current Cultures: 12/02/2019 Right Foot Tissue Aerobic Culture: Normal Chalino After 48 Hours. Final. 12/02/2019 Right Foot Tissue AFB Culture: No Acid Fast Bacilli Seen. Preliminary. 12/02/2019 Right Foot Tissue Anaerobic Culture: No Anaerobic Growth at 2 Days. Final. 12/02/2019 Right Foot Tissue Fungus Culture: Fungal Culture in Progress. Preliminary. 12/01/2019 Blood Culture #1: No Growth After 5 Days. Final. 12/01/2019 Blood Culture #2: No Growth After 5 Days. Final. 11/30/2019 Right Foot Wound Aerobic Culture: Normal Chalino After 48 Hours. Final. 11/21/2019 Left Leg Wound Aerobic Culture: Normal Chalino After 48 Hours. Final. 11/20/2019 Right Foot Tissue Aerobic Culture: Moderate Growth Enterobacter cloacae complex, S=Youssef Sensitive. Final. 11/20/2019 Right Foot Tissue Anaerobic Culture: No Anaerobic Growth at 2 Days. Final. 11/20/2019 Right Foot Bone Aerobic Culture: Light Growth Enterobacter Cloacae Complex, S=Youssef Sensitive. Final. 11/20/2019 Right Foot Bone Anaerobic Culture: No Anaerobic Growth at 2 Days. Final. Date: 12/06/2019 New labs/results as of last note Update from previous note Tmax: 99 Urine Output: 1250 Stool: not recorded Current Antibiotics: Rocephin 2 gm IV every 24 Hours until 01/02/2020 Previous Antibiotic: Ancef 2,000 mg IV every 8 Hours Pre/Post Procedure I have personally reviewed the labs and results Test results Laboratory and Additional Data Reviewed: Labs: CBC 12/05/2019 07:58 WBC: 7.98 Hgb: 11.4 Hct: 36.3 Platelets: 228 Lymphocytes Abs: 0.52 CMP 12/05/2019 07:58 Glucose: 223 BUN: 19 Creatinine: 0.86 Sodium: 139 Potassium: 4.1 Total Protein: 6.4 Albumin: 2.4 Alk Phos: 75 AST: 20 ALT: 31 Total Bilirubin: 0.4 CRP 12/05/2019 07:58 85.3 Current Cultures: 12/02/2019 Right Foot Tissue Aerobic Culture: Normal Chalino After 48 Hours. Final. 12/02/2019 Right Foot Tissue AFB Culture: No Acid Fast Bacilli Seen. Preliminary. 12/02/2019 Right Foot Tissue Anaerobic Culture: No Anaerobic Growth at 2 Days. Final. 12/02/2019 Right Foot Tissue Fungus Culture: Fungal Culture in Progress. Preliminary. 12/01/2019 Blood Culture #1: No Growth After 5 Days. Final. 12/01/2019 Blood Culture #2: No Growth After 5 Days. Final. 11/30/2019 Right Foot Wound Aerobic Culture: Normal Chalino After 48 Hours. Final. 11/21/2019 Left Leg Wound Aerobic Culture: Normal Chalino After 48 Hours. Final. 11/20/2019 Right Foot Tissue Aerobic Culture: Moderate Growth Enterobacter cloacae complex, S=Youssef Sensitive. Final. 11/20/2019 Right Foot Tissue Anaerobic Culture: No Anaerobic Growth at 2 Days. Final. 11/20/2019 Right Foot Bone Aerobic Culture: Light Growth Enterobacter Cloacae Complex, S=Youssef Sensitive. Final. 11/20/2019 Right Foot Bone Anaerobic Culture: No Anaerobic Growth at 2 Days. Final. Pathology: 12/02/2019 A. Soft tissue, Right Foot, excision: Non-specific ulcer. Date: 12/05/2019 New labs/results as of last note Update from previous note Tmax: 98.8 Urine Output: 2900 Stool: not recorded Current Antibiotics: Rocephin 2 gm IV every 24 Hours Previous Antibiotic: Ancef 2,000 mg IV every 8 Hours Pre/Post Procedure I have personally reviewed the labs and results Test results Laboratory and Additional Data Reviewed: Labs: CBC 12/05/2019 07:58 WBC: 7.98 Hgb: 11.4 Hct: 36.3 Platelets: 228 Lymphocytes Abs: 0.52 CMP 12/05/2019 07:58 Glucose: 223 BUN: 19 Creatinine: 0.86 Sodium: 139 Potassium: 4.1 Total Protein: 6.4 Albumin: 2.4 Alk Phos: 75 AST: 20 ALT: 31 Total Bilirubin: 0.4 CRP 12/05/2019 07:58 85.3 Current Cultures: 12/02/2019 Right Foot Tissue Aerobic Culture: Normal Chalino After 48 Hours. Final. 12/02/2019 Right Foot Tissue AFB Culture: No Acid Fast Bacilli Seen. Preliminary. 12/02/2019 Right Foot Tissue Anaerobic Culture: No Anaerobic Growth at 2 Days. Final. 12/02/2019 Right Foot Tissue Fungus Culture: Fungal Culture in Progress. Preliminary. 12/01/2019 Blood Culture #1: No Growth After 48 Hours. Preliminary. 12/01/2019 Blood Culture #2: No Growth After 48 Hours. Preliminary. 11/30/2019 Right Foot Wound Aerobic Culture: Normal Chalino After 48 Hours. Final. 11/21/2019 Left Leg Wound Aerobic Culture: Normal Chal[place] After 48 Hours. Final. 11/20/2019 Right Foot Tissue Aerobic Culture: Moderate Growth Enterobacter cloacae complex, S=Youssef Sensitive. Final. 11/20/2019 Right Foot Tissue Anaerobic Culture: No Anaerobic Growth at 2 Days. Final. 11/20/2019 Right Foot Bone Aerobic Culture: Light Growth Enterobacter Cloacae Complex, S=Youssef Sensitive. Final. 11/20/2019 Right Foot Bone Anaerobic Culture: No Anaerobic Growth at 2 Days. Final. Current Antibiotics: Rocephin 2 gm IV every 24 Hours Previous Antibiotic: Ancef 2,000 mg IV every 8 Hours Pre/Post Procedure I have personally reviewed the labs and results Test results Laboratory and Additional Data Reviewed: Results from last 7 days Lab Units 12/01/19 0648 11/30/19 1245 11/29/19 0655 SODIUM mmol/L 140 140 142 POTASSIUM mmol/L 5.0 4.9 5.1 CHLORIDE mmol/L 106 105 107 BUN mg/dL 22 24 36* CREATININE mg/dL 0.98 0.94 1.12 GLUCOSE mg/dL 223* 127* 108* CALCIUM mg/dL 9.1 9.3 9.3 Results from last 7 days Lab Units 12/01/19 0635 11/30/19 1245 WBC K/mcL 8.56 8.72 HGB g/dL 11.2* 10.8* HCT % 35.6* 35.4* PLT K/mcL 232 243 Results from last 7 days Lab Units 11/30/19 1245 ALK PHOS U/L 67 BILIRUBIN TOTAL mg/dL 0.3 TOTAL PROTEIN g/dL 6.5 ALTR U/L 56 AST U/L 42 Current Cultures: 12/02/2019 Right Foot Tissue Aerobic Culture: Normal [place] After 24 Hours. Preliminary. 12/02/2019 Right Foot Tissue AFB Culture: No Acid Fast Bacilli Seen. Preliminary. 12/01/2019 Blood Culture #1: No Growth After 48 Hours. Preliminary. 12/01/2019 Blood Culture #2: No Growth After 48 Hours. Preliminary. 11/30/2019 Right Foot Wound Aerobic Culture: Normal Chalino After 48 Hours. Final. 11/21/2019 Left Leg Wound Aerobic Culture: Normal Chalino After 48 Hours. Final. 11/20/2019 Right Foot Tissue Aerobic Culture: Moderate Growth Enterobacter cloacae complex, S=Youssef Sensitive. Final. 11/20/2019 Right Foot Tissue Anaerobic Culture: No Anaerobic Growth at 2 Days. Final. 11/20/2019 Right Foot Bone Aerobic Culture: Light Growth Enterobacter Cloacae Complex, S=Youssef Sensitive. Final. 11/20/2019 Right Foot Bone Anaerobic Culture: No Anaerobic Growth at 2 Days. Final. Recent Cultures: 05/30/2019 Right Foot Tissue Aerobic Culture: Normal Chalino After 48 Hours. Final. 05/30/2019 Right Foot Tissue Anaerobic Culture: No Anaerobic Growth at 2 Days. Final. 03/23/2019 Right Foot Wound Aerobic Culture: Heavy Growth Raoultella Pl[place], R=Ampicillin, S=Remainder of panel. 03/09/2019 Right Foot Wound Aerobic Culture: Normal Chalino After 48 Hours. Final. 02/09/2019 Right Foot Wound Aerobic Culture: Normal Chalino After 48 Hours. Final. 01/19/2019 Right Toe Two Wound Aerobic Culture: Heavy Growth Enterobacter Cloacae Complex, S=Youssef Sensitive. Final. Radiology: Right Foot X-Ray 12/02/2019 Intraoperative fluoroscopy provided. Severe bony deformity of the foot as described. Please correlate with operative note. Chest X-Ray 11/23/2019 1. Right arm PICC line in place with tip in superior vena cava. 2. No acute pulmonary disease. 3. Cardiomegaly with evidence of prior open heart surgery. 4. No acute osseous abnormality Right Foot X-Ray 11/20/2019 IMPRESSION: Intraoperative fluoroscopy for localization during right foot and ankle reconstruction and fixation. Please see operative report for details. Left Ankle X-Ray Ordered 11/20/2019 Right Foot X-Ray 11/20/2019 FINDINGS: Two views of the right foot were obtained. There are advanced changes of Charcot arthropathy throughout the right midfoot which appears similar compared to prior examination. There are postsurgical changes of resection of the right 2nd toe proximal phalangeal head. IMPRESSION: 1. Advanced changes of Charcot arthropathy throughout the right midfoot which appear unchanged compared to prior examination. Chest AP/PA X-Ray 11/16/2019 1. No acute pulmonary disease. 2. Cardiomegaly, with evidence of prior open heart surgery. 3. Multilevel degenerative changes of the thoracic spine. MR Right Foot 05/19/2019 1. There is a superficial soft tissue ulcer again seen along the plantar aspect of the midfoot, butthere is no evidence of abscess or osteomyelitis in this region. 2. Stable appearance of the sequela of severe neuropathic arthropathy of the midfoot with collapse of the midfoot again seen resulting in a rocker bottom deformity. 3. A moderate amount of diffuse subcutaneous edema along the dorsum of the foot may be due to reactive edema or a cellulitis, but this is nonspecific. Right Foot X-Ray 04/28/2019 1. Soft tissue irregularity involving the plantar aspect of the foot likely representing the reported ulcer. No bony destruction to suggest osteomyelitis. 2. No evidence of radiopaque foreign body. 3. Stable deformity and degenerative changes involving the midfoot. Findings are consistent with Charcot joint. NM White Cell Scan Spot Limited 03/08/2017 FINDINGS: A focal area of intense abnormal white blood cell migration is noted central plantar aspect of the right foot corresponding to the area of the wound demonstrated radiographically. No other focus of white blood cell migration abnormality is evident within the right or left foot. IMPRESSION: Focal area of abnormal white blood cell migration at the plantar aspect central right foot may be at the wound itself or may be involving the bone with associated fracture as demonstrated radiographically. Anatomic detail is insufficient for differentiation between the two. Renal U/S 03/07/2017 IMPRESSION: Severe thickening of the urinary bladder wall. This could be due to outlet obstruction with hypertrophy of the wall. If there is no such history, this should be evaluated with cystoscopy. CVPS: Arterial Doppler: not on file Venous Doppler: not on file 2D Echo 11/23/2019 Moderate LV enlargement with LVH. Global systolic dysfunction with segmental features. LVEF 30% Elevated LV filling pressures RV is dilated with severe RV dysfunction Mild mitral annular calcification, mild thickening of the aortic valve without hemodynamically significant valvular disease There is a atrial level right to left shunt identified with saline contrast with free breathing andValsalva most likely via PFO LVEF unchanged from to previous echo from 2017 Surgeries: Please see above for surgical history Procedure: Right Foot I&D ADJUSTMENT EXTERNAL FIXATOR Date: 12/02/2019 Surgery: Alena Mora DPM Procedure: RIGHT FOOT RECONSTRUCTION WITH APPLICATION OF CIRCULAR STATIC EXTERNAL FIXATION Date: 11/20/2019 Surgeon: Alena Mora DPM Procedure: ARTHROPLASTY 2ND TOE RIGHT FOOT Date: 01/25/2019 Surgeon: Rosa M Robles DPM Pathology: not on file * Ying Salinas CNP - 12/19/2019 9:48 AM EDT Patient ID: Patient Name: Dyllan Huertas Admit Date: 12/06/2019 MR #: [id number] : 1960 Current location: [facility] Physicians: Rohit Aguilar MD (Family); Marino Sheldon CNP (Referring) Reason for consult: Type 2 diabetes out of control Assessment/Plan: Dx: Type 2 diabetes, under poor control Patient would benefit from adjustment in insulin levels to seek euglycemia and aid in wound healing. See plan below. Currently taking as outpatient: Metformin 1000 mg twice daily Humalog insulin: 8 units at breakfast; 8 units at lunch; 8 units at supper Humalog sliding scale Lantus insulin: 30 units at breakfast; 30 units at bedtime Current Hemoglobin A1C= Lab Results Component Value Date HGBA1C 8.8 (H) 11/27/2019 HGBA1C 8.5 (H) 01/20/2019 NOTES: 12/07: Patient's blood glucose levels reviewed over the last 48 hours. Patient recently transferred to the inpatient rehabilitation unit blood glucose levels over the last for a 8 hours have ranged from 185-345 mg/dL. The present time he is taking 30 units of Lantus twice daily along with 8 units of Humalog with meals. Patient also takes metformin 1000 mg twice daily. 12/10: BG reviewed over the last 48 hours. Patient currently receiving Metformin 1000 mg daily, 12 units with meals + SS, and 35 units of Lantus BID. Patient reports that BG are better now than they usually are at home. 12/12: BG reviewed over the last 48 hours. Patient currently receiving Metformin 1000 mg daily, 12 units with meals + SS, and 35 units of Lantus BID. 12/14: BG reviewed over the last 48 hours. We received a call about patient's BG being 91 at supper time and them being worried about hypoglycemia with full supper time dose. Thus, patient was switched from Conservative SS to Insulin Sensitive SS with meals in addition to 09/14/12 of Humalog and 35/35 of Lantus. 12/18: BG reviewed over the past 24 hours. Patient is currently getting Humalog 12 units at meals, and Lantus 35U BID. His BG has been very well controlled over the past 72 hours. Patient will likely be discharged today. Blood Glucoses: 12/06: 242---341---239---345 12/07: 185---216---151---252 12/08: 203---190---133---153 12/09: 125---149---152---164 12/10: 168---162---153---195 12/11: 231---178---134---102 12/12: 137---160---159---191 12/13 129---233---91----214 12/15: 110---205--153---154 12/16: 124---193---115---130 12/17: 98---92----114----133 12/18: 111 Plan: 1. Rx changes: Adjust as below Humalog insulin: 12 units at breakfast; 12 units at lunch; 12 units at supper Lantus insulin: 35 units at breakfast; 35 units at bedtime Continue Metformin 1000 mg twice daily Decrease SSI to conservative dose. 12/10: CPM 12/12: CPM 12/14: We received a call about patient's BG being 91 yesterday at dinner. Thus, we decreased patient's SS to insulin sensitive but will continue 09/14/12 of Humalog and 35/35 of Lantus. 12/17: CPM while inpatient. Possible d/c tomorrow, patient would like to use ReliOn R and NPH at home. Suggested doses for this regimen to start as outpatient will be Regular 12u before meals and NPH 30u AM, 26u at HS. 12/18: Regular 12u before meals and NPH 30u AM, 26u at HS, at discharge. Patient to call in BG readings weekly for dose adjustments. 2. Education: Reviewed ABCs of diabetes management (respective goals in parentheses): A1C (7.0-8.0), blood pressure (<130/80), and cholesterol (LDL <100). Referral to Diabetes Education Referral to Nutrition therapy Subjective: Brief HPI: 12/10: Patient sitting up in wheelchair finishing breakfast. He is without complaints this am. Patient reports that BG are better now than they usually are at home. We discussed that it is most likely diet related and patient admits to eating whatever he wants at home. 12/12: Patient sitting up in his wheelchair he had just finished breakfast. He is without complaintsthis morning. Patient reports that PT and OT are going well. 12/14: Patient sitting in wheelchair and had just finished breakfast. He reports that the current plan is for him to be discharged home on 12/19/2019. Patient reports that he wants to follow up with his PCP because he lives in [place] and will not transportation while he continues to recover. 12/17: Patient eating breakfast on exam, feeling well without complaints. Eager for discharge possibly tomorrow. 12/18: Patient sitting up in wheel chair watching tv. He denies any complaints this AM, and is hoping for DC today. He will bet getting IV antibiotics at home. Dyllan Huertas is a 59 y.o. male with a past medical history of type 2 DM w/ charcot joint arthropath. Patient recently underwent right midfoot wedge resection with application of external fixator (11/20/19). He was initially admitted on 11/30/2019 with osteomyelitis of right ankle. Patient was transferred to [facility] inpatient rehab on 12/06/19. Hospital course significant for: debridement of right ankle; hyperglycemia. IV abx per ID. Patient reports that his pain is well controlled. He denies CP or SOB. He reports that he has numbness/tingling of lower limbs. Patient has had diabetes for close to 30 years. Diagnosed in his late 's, he started with OHAs, transitioned to insulin in approximately 2011. Patient is currently taking Humalog insulin: 8 units at breakfast; 8 units at lunch; 8 units at supper Lantus insulin: 30 units at breakfast; 30 units at bedtime. Prior to admission he reports taking close to 50 units of R TID with meals and 50 units of lantus at HS. Patient reports he had considered changing to R and N due to cost of brand name insulin, however he is planning to delay that at this time. Blood sugar levels since admission have been ranging from 185-362 mg/dL. Current monitoring regimen: home blood tests - 2 times daily Complications of diabetes include: Retinopathy: Negative Nephropathy: Negative Peripheral Neuropathy: Positive Autonomic Neuropathy: Negative Allergies: No Known Allergies Home Medications: Current Facility-Administered Medications Medication Dose Route Frequency Provider Last Rate Last Dose acetaminophen (TYLENOL) tablet 650 mg 650 mg Oral Q4H PRN Helena Sheldon CNP 650 mg at 12/09/19 2142 albuterol (PROVENTIL) 2.5 mg /3 mL (0.083 %) nebulizer solution 2.5 mg 2.5 mg Inhalation Q2H PRN Helena Sheldon CNP aspirin EC tablet 162 mg 162 mg Oral Daily Helena Sheldon CNP 162 mg at 12/19/19 0835 atorvastatin (LIPITOR) tablet 40 mg 40 mg Oral Nightly Helena Sheldon CNP 40 mg at 12/19/19 0834 bisacodyL (DULCOLAX) suppository 10 mg 10 mg Rectal Daily PRN Helena Sheldon CNP 10 mg at 12/08/19 2242 calcium carbonate (TUMS) chewable tablet 1,000 mg 1,000 mg Oral Daily Helena Sheldon DE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 1,000mg at 12/19/19 0900 carvediloL (COREG) tablet 12.5 mg 12.5 mg Oral BID Helena Sheldon CNP 12.5 mg at 12/19/19 0900 docusate sodium (COLACE) capsule 100 mg 100 mg Oral Daily Helena Sheldon DE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 100 mg at 12/19/19 0841 docusate sodium (COLACE) capsule 100 mg 100 mg Oral BID PRN Helena Sheldon DE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 100 mg at 12/17/19 1642 fenofibrate tablet 160 mg 160 mg Oral Daily with breakfast Helena Sheldon CNP 160 mg at 12/19/19 0835 gabapentin (NEURONTIN) capsule 300 mg 300 mg Oral Q8H LESLEY Helena Sheldon CNP 300 mg at 12/19/19 0503 insulin glargine (LANTUS) injection 35 Units 35 Units Subcutaneous BID Andrés Andre CNP 35 Units at 12/19/19 0841 insulin lispro (HumaLOG) injection 0-15 Units 0-15 Units Subcutaneous at bedtime Helena Sheldon DE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 0 Units at 12/18/19 2111 insulin lispro (HumaLOG) injection 0-30 Units 0-30 Units Subcutaneous TID AC Sera Bowden MD12 Units at 12/19/19 0837 levothyroxine (SYNTHROID, LEVOTHROID) tablet 112 mcg 112 mcg Oral Daily Helena Sheldon CNP 112mcg at 12/19/19 0503 magnesium oxide (MAG-OX) tablet 400 mg 400 mg Oral Daily Helena Sheldon DE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 400 mg at 12/19/200735 melatonin Tab 10 mg 10 mg Oral at bedtime Helena Sheldon DE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 10 mg at 12/18/19 2110 meropenem (MERREM) 1000 mg in sodium chloride (NS) 0.9% 50 mL (premix) 1,000 mg Intravenous Q12H Maria Isabel Awad MD Stopped at 12/19/19 0458 metFORMIN (GLUCOPHAGE) tablet 1,000 mg 1,000 mg Oral BID with meals Helena Sheldon CNP 1,000 mg at 03/17/20 0834 naloxone (NARCAN) injection 0.1 mg 0.1 mg Intravenous PRN Helena Sheldon CNP And naloxone (NARCAN) injection 0.4 mg 0.4 mg Intravenous PRN Helena Sheldon CNP nitroGLYCERIN (NITROSTAT) SL tablet 0.4 mg 0.4 mg Sublingual Q5 Min PRN Helena Sheldon CNP ondansetron (ZOFRAN-ODT) disintegrating tablet 4 mg 4 mg Oral Q6H PRN Helena Sheldon CNP psyllium (METAMUCIL) powder 1 packet 1 packet Oral Daily Kyung Doran [facility],PharmD 1 packet at 12/19/19 0835 senna (SENOKOT) tablet 8.6 mg 1 tablet Oral BID PRN Helena Sheldon CNP sodium chloride (PF) (NS) flush 10 mL 10 mL Intracatheter Q8H LESLEY Helena Sheldon CNP 10 mL at 12/19/19 0500 sodium chloride (PF) (NS) flush 10-20 mL 10-20 mL Intracatheter PRN Helena Sheldon CNP sodium phosphates (FLEETS ADULT) 19-7 gram/118 mL enema 1 each 1 each Rectal Daily PRN Helena Jaimes CNP tamsulosin (FLOMAX) 24 hr capsule 0.4 mg 0.4 mg Oral After evening meal Helena Sheldon CNP 0.4mg at 12/18/19 1700 traZODone (DESYREL) tablet 50 mg 50 mg Oral Nightly PRN Helena Sheldon CNP Current Medications: aspirin 162 mg Oral Daily atorvastatin 40 mg Oral Nightly calcium carbonate 1,000 mg Oral Daily carvediloL 12.5 mg Oral BID docusate sodium 100 mg Oral Daily fenofibrate 160 mg Oral Daily with breakfast gabapentin 300 mg Oral Q8H LESLEY insulin glargine 35 Units Subcutaneous BID lispro insulin 0-15 Units Subcutaneous at bedtime insulin lispro 0-30 Units Subcutaneous TID AC levothyroxine 112 mcg Oral Daily magnesium oxide 400 mg Oral Daily melatonin 10 mg Oral at bedtime meropenem 1,000 mg Intravenous Q12H metFORMIN 1,000 mg Oral BID with meals psyllium husk 1 packet Oral Daily sodium chloride (PF) 10 mL Intracatheter Q8H [facility] tamsulosin 0.4 mg Oral After evening meal acetaminophen, albuterol, bisacodyL, docusate sodium, nalOXone AND Notify physician AND naloxone, nitroGLYCERIN, ondansetron, senna, sodium chloride (PF), sodium phosphates, traZODone Review of Systems: Review of Systems Constitutional: Positive for activity change, fatigue and unexpected weight change. HENT: Negative for trouble swallowing. Eyes: Negative for visual disturbance. Respiratory: Negative for cough and shortness of breath. Cardiovascular: Negative for chest pain and leg swelling. Gastrointestinal: Negative for abdominal pain, constipation, diarrhea, nausea and vomiting. Endocrine: Negative for polydipsia, polyphagia and polyuria. Genitourinary: Schulte in place Musculoskeletal: Positive for arthralgias and myalgias. Skin: Negative for wound. Neurological: Positive for weakness and numbness (and tingling). Negative for headaches. Psychiatric/Behavioral: Negative for agitation and sleep disturbance. The patient is not nervous/anxious. History: Past Medical History: Diagnosis Date Coronary artery disease Diabetes mellitus, type 2 (HCC) Hyperlipidemia Hypertension Hypothyroidism Peripheral neuropathy S/P foot surgery, right 12/09/2019 11/20/2019Right foot reconstruction surgery with external fixation 12/02/2019 Right foot I and D Sleep apnea, obstructive does not use CPAP Past Surgical History: Procedure Laterality Date APPENDECTOMY ARTHROPLASTY TOE Right 01/25/2019 Procedure: ARTHROPLASTY 2ND TOE RIGHT FOOT; Surgeon: Rosa M Rolbes DPM; Location: [facility] [place] OR; Service: Podiatry CABG 2017 CARDIAC SURGERY 2017 CABG tripe bypass CLOSED REDUCTION PERCUTANEOUS PINNING LOWER EXTREMITY N/A 12/02/2019 Procedure: ADJUSTMENT of EXTERNAL FIXATOR; Surgeon: Alena Mora DPM; Location: Main OR; Service: Podiatry CYST REMOVED FROM CHEST N/A INCISION AND DRAINAGE FOOT AND ANKLE Right 12/02/2019 Procedure: RIGHT FOOT I&D; Surgeon: Alena Mora DPM; Location: Main OR; Service: Podiatry METAL IN LEFT LEFT WRIST AND LEFT 5TH TOE Left ORTHOPEDIC SURGERY RECONSTRUCTION FOOT CHARCOT Right 11/20/2019 Procedure: RIGHT FOOT RECONSTRUCTION WITH APPLICATION OF CIRCULAR STATIC EXTERNAL FIXATION; Surgeon: Alena Mora DPM; Location: Main OR; Service: Podiatry RT FOOT SURGERY Right TUMEMILY JEONG N/A Family History Problem Relation Age of Onset Heart disease Mother Heart disease Father Heart disease Brother Diabetes Sister Social History Tobacco Use Smoking status: Never Smoker Smokeless tobacco: Never Used Substance Use Topics Alcohol use: Yes Comment: occassionally mostly beer Drug use: Never The following portions of the patient's history were reviewed and updated as appropriate: allergies, current medications, past family history, past medical history, past social history, past surgicalhistory and problem list. Objective: BP 112/70 Pulse 72 Temp 98.2 F (36.8 C) (Oral) Resp (!) 20 Ht 5' 11 Wt 116 kg (255 lb 11.7 oz) SpO2 93% BMI 35.67 kg/m Wt Readings from Last 3 Encounters: 12/17/19 116 kg (255 lb 11.7 oz) 11/30/19 128 kg (282 lb 3 oz) 11/20/19 129.4 kg (285 lb 4.4 oz) Physical Exam: Physical Exam Constitutional: He is oriented to person, place, and time. He appears well- developed and well-nourished. HENT: Head: Normocephalic and atraumatic. Eyes: Pupils are equal, round, and reactive to light. Conjunctivae are normal. Neck: Normal range of motion. Neck supple. No thyromegaly present. Cardiovascular: Normal rate, regular rhythm, normal heart sounds and intact distal pulses. Pulmonary/Chest: Effort normal and breath sounds normal. No respiratory distress. He has no wheezes. Abdominal: Soft. Bowel sounds are normal. He exhibits no distension. Genitourinary: Genitourinary Comments: Schulte in place Musculoskeletal: General: Edema (BLE) present. Comments: Right foot wrapped with ZECHARIAH bandage. External fixator in place. Left foot in diabetic shoe, not examined by this provider Neurological: He is alert and oriented to person, place, and time. Skin: Skin is warm and dry. Psychiatric: He has a normal mood and affect. His behavior is normal. Judgment and thought content normal. Laboratory Review: BP 112/70 Pulse 72 Temp 98.2 F (36.8 C) (Oral) Resp (!) 20 Ht 5' 11 Wt 116 kg (255 lb 11.7 oz) SpO2 93% BMI 35.67 kg/m Lab Results Component Value Date HGBA1C 8.8 (H) 11/27/2019 Glucose (mg/dL) Date Value 12/18/2019 82 Creatinine (mg/dL) Date Value 12/18/2019 1.04 Lab Results Component Value Date CHOL 115 11/27/2019 TRIG 177 (H) 11/27/2019 HDL 28 (L) 11/27/2019 LDLCALC 52 11/27/2019 Lab Results Component Value Date TSH 1.63 11/27/2019 No results found for: FREET4 Lab Results Component Value Date WBC 6.38 12/18/2019 HGB 11.7 (L) 12/18/2019 HCT 37.8 (L) 12/18/2019 MCV 85.1 12/18/2019 PLT 323 12/18/2019 This SmartLink has not been configured with any valid records. This SmartLink has not been configured with any valid records. Laboratory and Additional Data Reviewed: Laboratory 12/19/19 9:48 AM Medications 12/19/19 9:48 AM Transcriptions 12/19/19 9:48 AM Electronically signed by Ying Salinas APRN-DE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 209:49 AM * Helena Glass LPN - 12/19/2019 7:54 AM EDT Date: 12/19/2019 No new labs/results as of last note Update from previous note Tmax: 98.5 Urine Output: 2400 Stool: X1 Current Antibiotics: Merrem 1,000 mg IV every 12 Hours until January 02, 2020 Previous Antibiotic: Rocephin 2 gm IV every 24 Hours Ancef 2,000 mg IV every 8 Hours Pre/Post Procedure Dressings: Per Dr. Mora I have personally reviewed the labs and results Test results Laboratory and Additional Data Reviewed: Labs to de drawn every Wednesday (CBC, CMP, Sed Rate, CRP) Current Cultures: 12/10/2019 Right Foot Wound Aerobic Culture: Normal Chalino After 48 Hours. Final 12/10/2019 Right foot wound, anaerobic culture: No anaerobic growth at 2 days. Final 12/08/2019 Urine Aerobic Culture: No Growth (<1,000 CFU/mL). Final. 12/07/2019 Urine Aerobic Culture on arrival to Nursing Rehab Unit: No Growth (<1,000 CFU/mL). Final. 12/02/2019 Right Foot Tissue Aerobic Culture: Normal Chalino After 48 Hours. Final. 12/02/2019 Right Foot Tissue AFB Culture: No Acid Fast Bacilli Seen. Preliminary. 12/02/2019 Right Foot Tissue Anaerobic Culture: No Anaerobic Growth at 2 Days. Final. 12/02/2019 Right Foot Tissue Fungus Culture: Fungal Culture in Progress. Preliminary. 12/01/2019 Blood Culture #1: No Growth After 5 Days. Final. 12/01/2019 Blood Culture #2: No Growth After 5 Days. Final. 11/30/2019 Right Foot Wound Aerobic Culture: Normal Chalino After 48 Hours. Final. 11/21/2019 Left Leg Wound Aerobic Culture: Normal Chalino After 48 Hours. Final. 11/20/2019 Right Foot Tissue Aerobic Culture: Moderate Growth Enterobacter cloacae complex, S=Youssef Sensitive. Final. 11/20/2019 Right Foot Tissue Anaerobic Culture: No Anaerobic Growth at 2 Days. Final. 11/20/2019 Right Foot Bone Aerobic Culture: Light Growth Enterobacter Cloacae Complex, S=Youssef Sensitive. Final. 11/20/2019 Right Foot Bone Anaerobic Culture: No Anaerobic Growth at 2 Days. Final * Naveed José - 12/19/2019 5:50 AM EDT Nutrition Care Follow Up Monitoring and Evaluation: PO intake was 75 or greater at most meals Nutrition Diagnosis: Increased energy expenditure related to wound healing as evidenced by surgical site, ankle. Not Resolved Nutrition Intervention: continue to encourage high protein food choices all Meal and Snacks Nutrition Prescription: [facility] Oral nutrition supplement: jude Tube Feeding: n/a Nutrition Goals: PO intake > 75% most meals Start Date:12/19/2019 Expected End Date:12/25/2019 Nutrition Education: Education completed 12/15/19 by JENNIFER See education note Assessment: Pertinent clinical information: impaired mobility Current weight: 116 kg (255 lb 11.7 oz) Body mass index is 35.67 kg/m . Weight: obese Recent intake: 75-100%. Current intake Likely meets estimated needs. Patient/family comments: appetite has been good Difficulty Chewing/Swallowing: No Skin Integrity: Surgical incision GI Function: WNL Physical Appearance: no change from initial assessment Labs: Recent Labs 12/18/19 1340 NA 142 K 4.5 BICARB 25 CL 106 GLUCOSE 82 BUN 23 CREATININE 1.04 Scheduled Meds: aspirin 162 mg Oral Daily atorvastatin 40 mg Oral Nightly calcium carbonate 1,000 mg Oral Daily carvediloL 12.5 mg Oral BID docusate sodium 100 mg Oral Daily fenofibrate 160 mg Oral Daily with breakfast gabapentin 300 mg Oral Q8H LESLEY insulin glargine 35 Units Subcutaneous BID lispro insulin 0-15 Units Subcutaneous at bedtime insulin lispro 0-30 Units Subcutaneous TID AC levothyroxine 112 mcg Oral Daily magnesium oxide 400 mg Oral Daily melatonin 10 mg Oral at bedtime meropenem 1,000 mg Intravenous Q12H metFORMIN 1,000 mg Oral BID with meals psyllium husk 1 packet Oral Daily sodium chloride (PF) 10 mL Intracatheter Q8H LESLEY tamsulosin 0.4 mg Oral After evening meal Continuous Infusions: Estimated Energy Needs Total Energy Estimated Needs: 2400 Method for Estimating Needs: 25kcals/kg. used adjBW. Total Protein Estimated Needs: 116 Method for Estimating Needs: 1.2gms/kg. used adjBW. Will monitor and follow as needed Naveed José DTR * Sinai Lopez MD - 12/18/2019 8:28 PM EDT Physical Medicine & Rehabilitation Inpatient Progress 12/18/2019 Sinai Lopez MD [facility] Nursing [facility] Patient: Dyllan Huertas Date of : 1960 (59 y.o.) PCP: Rohit Aguilar MD Date of Admission: 12/06/2019 ASSESSMENT/PLAN: Rehabilitation Diagnosis: Rehab Impairement Code (JOSE): Ortho (12/05/19 0700) Ortho IGC: 08.9 - Other Orthopaedic (12/05/19 0700) Discharge Barriers: Mobility, ADL, Self Care Impairment: Intensive PT/OT Decreased Endurance: Intensive PT/OT , patient requires AFO on left lower limb discussed with patient and PT. Patient will need wide drop arm commode in order to accommodate for slide board with transfer Skin: Turn every 2 hours, monitor for skin breakdown per rehabilitation nursing, dressing changes per podiatry Nutritional Status: Nutrition Consult Pulmonary Rehabilitation: Encourage incentives spirometry and deep breathing exercises Neurogenic Bladder: attempted to remove schulte without success, urology after discharge. monitor left lower limb charco ankle -obtain Xray -screw broken in left lower limb - per podiatry no change in acitivty restrictions Mixed hyperlipidemia Assessment & Plan Statin. 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 Consult endocrine * Osteomyelitis (HCC) Assessment & Plan ID following, podiatry following. See rehab plan. Therapy Updates: patient has progressed to CGA withstand pivot transfers Attestation: Considering all of the information above, it is my best judgment that this patient continues to require an intensive rehabilitation multidisciplinary program as previously described due to the necessity of medical management, rehabilitation needs, and complexity of nursing care under the supervision of a rehabilitation physician (patient requires at least 3 rehab physician visits per week). It can be reasonably expected that patient will participate in and benefit from a multidisciplinary team approach to maximize functional independence that is best served with acute inpatient rehabilitationas opposed to lower level of care. The teams needed are: Rehabilitation Nursing for medication management, bowel/bladder care, skin care, and respiratory care Physical Therapy for strengthening, endurance, mobility, gait and balance training, ROM, ADL's, andpatient/family training Occupational Therapy for strengthening, endurance, mobility, gait and balance training, ROM, ADL's,and patient/family training Rehabilitation Psychology for coping Therapeutic Recreation for community re-entry Social Work for integrated social support and discharge planning SUBJECTIVE: Date of Admission: 12/06/2019 Informant(s): Patient History of Present Illness: Patient reports That he would like to attempt IMC again. He reports that he did require help with stand pivots and car transfers. He reports that he is able to perform slide board transfers on his own now. Review of Systems: All pertinent positives and negative in HPI/Interval History. All others negative. Allergies: Patient has no known allergies. Current HOSPITAL Medications: Current Facility-Administered Medications Medication Dose Route Frequency Provider Last Rate Last Dose acetaminophen (TYLENOL) tablet 650 mg 650 mg Oral Q4H PRN Helena Sheldon CNP 650 mg at 12/09/19 2142 albuterol (PROVENTIL) 2.5 mg /3 mL (0.083 %) nebulizer solution 2.5 mg 2.5 mg Inhalation Q2H PRN Helena Sheldon CNP aspirin EC tablet 162 mg 162 mg Oral Daily Helena Sheldon CNP 162 mg at 12/18/19 09 atorvastatin (LIPITOR) tablet 40 mg 40 mg Oral Nightly Helena Sheldon CNP 40 mg at 12/17/192106 bisacodyL (DULCOLAX) suppository 10 mg 10 mg Rectal Daily PRN Helena Sheldon DE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 10 mg at 12/08/19 2242 calcium carbonate (TUMS) chewable tablet 1,000 mg 1,000 mg Oral Daily Helena Sheldon DE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 1,000mg at 12/18/19 09 carvediloL (COREG) tablet 12.5 mg 12.5 mg Oral BID Helena Sheldon CNP 12.5 mg at 12/18/19 0901 docusate sodium (COLACE) capsule 100 mg 100 mg Oral Daily Helena Sheldon DE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 100 mg at 12/18/19 0901 docusate sodium (COLACE) capsule 100 mg 100 mg Oral BID PRN Helena Sheldon CNP 100 mg at 12/17/19 1642 fenofibrate tablet 160 mg 160 mg Oral Daily with breakfast Helena Sheldon CNP 160 mg at 12/18/19 09 gabapentin (NEURONTIN) capsule 300 mg 300 mg Oral Q8H [facility] Helena Sheldon DE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 300 mg at 12/18/19 1459 insulin glargine (LANTUS) injection 35 Units 35 Units Subcutaneous BID Andrés Andre CNP 35 Units at 12/18/19 0902 insulin lispro (HumaLOG) injection 0-15 Units 0-15 Units Subcutaneous at bedtime Helena Sheldon CNP 0 Units at 12/17/192108 insulin lispro (HumaLOG) injection 0-30 Units 0-30 Units Subcutaneous TID AC Sera Bowden MD12 Units at 12/18/19 1702 levothyroxine (SYNTHROID, LEVOTHROID) tablet 112 mcg 112 mcg Oral Daily Helena Sheldon CNP 112mcg at 12/18/19 0453 magnesium oxide (MAG-OX) tablet 400 mg 400 mg Oral Daily Helena Sheldon CNP 400 mg at melatonin Tab 10 mg 10 mg Oral at bedtime Helena Sheldon CNP 10 mg at 12/17/19 210 meropenem (MERREM) 1000 mg in sodium chloride (NS) 0.9% 50 mL (premix) 1,000 mg Intravenous Q12H Maria Isabel Awad MD 100 mL/hr at 12/18/19 1659 1,000 mg at 12/18/19 1659 metFORMIN (GLUCOPHAGE) tablet 1,000 mg 1,000 mg Oral BID with meals Helena Sheldon CNP 1,000 mg at 12/18/19 1700 naloxone (NARCAN) injection 0.1 mg 0.1 mg Intravenous PRN Helena Sheldon CNP And naloxone (NARCAN) injection 0.4 mg 0.4 mg Intravenous PRN Helena Sheldon CNP nitroGLYCERIN (NITROSTAT) SL tablet 0.4 mg 0.4 mg Sublingual Q5 Min PRN Helena Sheldon CNP ondansetron (ZOFRAN-ODT) disintegrating tablet 4 mg 4 mg Oral Q6H PRN Helena Sheldon CNP psyllium (METAMUCIL) powder 1 packet 1 packet Oral Daily Kyung Doran [facility],PharmD 1 packet at 12/18/19 0901 senna (SENOKOT) tablet 8.6 mg 1 tablet Oral BID PRN Helena Sheldon CNP sodium chloride (PF) (NS) flush 10 mL 10 mL Intracatheter Q8H [facility] Helena Sheldon CNP 10 mL at 12/18/19 1415 sodium chloride (PF) (NS) flush 10-20 mL 10-20 mL Intracatheter PRN Helena Sheldon CNP sodium phosphates (FLEETS ADULT) 19-7 gram/118 mL enema 1 each 1 each Rectal Daily PRN Helena Jaimes CNP tamsulosin (FLOMAX) 24 hr capsule 0.4 mg 0.4 mg Oral After evening meal Helena Sheldon CNP 0.4mg at 12/18/19 1700 traZODone (DESYREL) tablet 50 mg 50 mg Oral Nightly PRN Helena Sheldon CNP OBJECTIVE: Physical Examination: BP 126/78 Pulse 86 Temp 98.5 F (36.9 C) (Oral) Resp 14 Ht 5' 11 Wt 116 kg (255 lb 11.7 oz) SpO2 96% BMI 35.67 kg/m GENERAL: General Appearance: In no apparent distress, well nourished HEENT: Normocephalic, atraumatic, neck supple, EOMI, PER Respiratory: On room air, no respiratory distress Cardiovascular: Peripheral pulses palpable, 2+ edema b/l Abdomen: Nontender, nondistended Musculoskeletal: left charcot ankle; s/p right ex-fix and debridement with wound closure; decreasedPROM of left ankle dorsiflexion and plantar flexion. Skin: ZECHARIAH wraps on lower limbs, right lower limb dressing in tact. Psychiatric: Normal mood and affect, appropriate insight and judgement CRANIAL NERVES: II, III: Pupils: PER III, IV, : Eye Movements: Normal (EOMI, No ptosis, No nystagmus) V - Facial Sensation: Normal VII: Face Symmetry & Strength: Normal VIII Hearing: Normal IX, X Palate:: Normal XI - Shoulder Shrug: Normal XII - Tongue Protrusion: Normal GAIT: Unable to walk due to no assistance to safely evaluate COORDINATION & GROSS MOTOR: Abnormal Movements: None Tone: Normal MOTOR - MUSCLE STRENGTH: Right Muscle Strength Left 5 Shoulder Abduction 5 5 Elbow Flexion 5 5 Elbow Extension 5 5 Wrist Extension 5 5 Finger Abduction 5 5 Hip Flexion 5 5 Knee Extension 5 EDDI Knee Flexion 5 EDDI Dorsiflexion 4 EDDI Plantar Flexion 4 MOTOR MARTINO: 5 Normal Power 4 Movement against moderate resistance over a full range of motion 3 Movement against gravity over almost full range of motion 2 Movement with gravity eliminated over almost full range of motion 1 Trace Movement (flicker of contraction visible or palpable) 0 No Movement (no contraction visible or palpable) EDDI Unable to Assess SENSATION: Light Touch: impaired Position Sense: impaired Lab Results Component Value Date ALBUMIN 3.0 (L) 12/18/2019 ALT 27 12/18/2019 AST 20 12/18/2019 BUN 23 12/18/2019 CALCIUM 9.6 12/18/2019 CL 106 12/18/2019 CHOL 115 11/27/2019 CREATININE 1.04 12/18/2019 GLUCOSE 82 12/18/2019 HDL 28 (L) 11/27/2019 HCT 37.8 (L) 12/18/2019 HGB 11.7 (L) 12/18/2019 HGBA1C 8.8 (H) 11/27/2019 MG 2.1 11/24/2019 PLT 323 12/18/2019 K 4.5 12/18/2019 NA 142 12/18/2019 TRIG 177 (H) 11/27/2019 WBC 6.38 12/18/2019 * Shavon Vogel RN - 12/18/2019 4:26 PM EDT Call placed to Dr Mora at [place] office ([phone]) spoke with Carlota, she spoke with Dr Mora. will see pt in wound care as scheduled on . 12/20. C is not to do any dressing changes until she sees pt on 12/20, she will give HHC orders at that time. * Shavon Vogel RN - 12/18/2019 2:32 PM EDT Discussed need for Heavy Duty Bedside Commode with drop arms with pt & PT Tri, as he has currently in his room & has been using. Both confirm this is type pt needs d/t his hip size & mobility needs. Pt aware will not be delivered until wed, he states he can make due with a bedpan if he has to for one night. I called 2 different suppliers & they also did not have in stock & could not get any sooner( [facility] in [place]. * Bhakti Shields, CURT - 12/18/2019 2:15 PM EDT OCCUPATIONAL THERAPY Daily Progress Note Therapy Precautions Orthotic Devices: Yes Lower Extremity: External Fixator, Right Weight Bearing Status: X RLE: Non Wt bearing LLE: Partial Wt bearing General Rehab Precautions: Fall risk Cognition Overall Cognitive Status: Within Functional Limits Arousal/Alertness: Appropriate responses to stimuli Orientation Level: Oriented X4 Executive functioning: WFL Safety Judgment: Good awareness of safety precautions Problem Solving: Able to problem solve independently Attention: Attends to quiet environment Hearing Status: WF Social Interaction: WFL Functional Transfers Bed to Chair Transfers: Modified [place](lateral transfers) Pt transfers to/from mat table with Mod Ind by lateral transfers. Exercise Seated Exercise: Primus (UBE) completed from w/c level x8 min duration to improve BUE strength in protraction/retraction patterns, tolerating on level 6 resistance without rest breaks. Zoomball activity completed while seated EOM to improve overall UE strength in horizontal abduction/adduction patterns in sustained 1.5-1.75 mins of activity without rest breaks, completing three sets with rest break between each set. Pt acknowledges fatigue in bilateral deltoids with task. Scapular signing from A-Z completed with use of 3 lb weight, downgrading to 2 lb weight midway through exercise 2* fatigue, to challenge multiple muscle groups in scapular/shoulder strengthening. Pt requires multiple rest breaks, noted trunk/scapular substitution noted with verbal cuing from therapist to correct technique. Interventions Balance Training: Sitting reaching activities Skilled Intervention: Seated ball bounce (with use of medium sized physioball) completed for bilateral shoulder strengthening, use of added 2 lb cuff weights for further strengthening. Pt tasked to throw ball overhead in full 180 degrees shoulder flexion for task, completes 25 reps followed by 40 reps with rest break between sets. Home Living Type of Home: House Home Layout: One level, Able to live on main level with bedroom/bathroom, Ramped entrance Bathroom Shower/Tub: Tub/shower unit Bathroom Toilet: Standard Bathroom Equipment: Tub transfer bench, Hand-held shower Bathroom Accessibility: Accessible via walker Home Equipment: Wheeled Walker, Wheelchair-manual(mayco rea, ) Additional Comments: Just recently was at [facility] for therapy Prior Level of Function Level of [place]: Independent with ADLs and functional transfers, Independent with homemaking with ambulation Lives With: Alone Receives Help From: Family ADL Assistance: Independent Homemaking Assistance: Independent Vocational: On disability Leisure: (cooking, shopping sports/electronics, target shoot, read, ) Comments: likes to build 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 Exit Protocol Followed: Yes For complete objective data, detailed plan of care and patient education refer to: OT EVALUATION flow sheet, OT TREATMENT flow sheet, patient Plan of Care, Plan of Care progress note, and Patient Education. * Crary, Pgegy, PT - 12/18/2019 1:08 PM EDT Inpatient Rehab Physical Therapy Discharge Summary Discharge Destination: home with family support Date of Discharge: 12-19-2019 Therapy Precautions Orthotic Devices: Yes Lower Extremity: External Fixator, Right Weight Bearing Status: X RLE: Non Wt bearing LLE: Partial Wt bearing General Rehab Precautions: Fall risk Balance Sitting Balance - Static: (NORMAL) Sitting Balance - Dynamic: (NORMAL) Standing Balance - Static: (FAIR-/POOR+) Standing Balance - Dynamic: (POOR+ with UE support) Skilled Intervention: occupational safety and health manager block: NT due to safety concerns Bed Mobility Rolling: Modified independence Supine to Sit: Modified independence Sit to Supine: Modified [place] Skilled Intervention: safety concerns with wt bearing through right LE and watching catheter Transfers Transfers Sit to Stand: Contact guard Bed to Chair: Contact guard Stand Pivot Transfers: Contact guard Lateral Transfers: Modified independence(with sliding board) Skilled Intervention: cues for hand placement and to go slow and watch his right foot placement Functional Transfers Car Transfers: Contact guard, Min(cues to go slow and watch right foot) Gait/Locomotion Gait Assistance: (NT due to wt bearing status) Curbs/Ramps: Moderately independent (Device)(ramps in w/c with bilat UEs and left LE. ) Wheelchair Mobility: Modified independence Wheelchair distance: 300 Feet(on even/uneven surfaces including ramps and 2 turns. ) Exercise Seated Exercises: pictorial HEP given in seated. green T-band to be used. no questions. Goals: Problem: Mobility - Impaired Goal: PT- LTG stand-pivot transfer Description: PT - Patient will perform bed mobility with WI and transfers with RW and mod assist toimprove functional mobility and safety. Outcome: Met Note: Pt is performing bed mobility with WI, sliding board transfers with WI and stand pivot with CGA/min Goal: PT- LTG sliding board transfer Description: PT - Patient will perform sliding board transfer with WI to improve functional mobility and safety. Outcome: Met Goal: PT- LTG dynamic balance Description: PT - Patient will increase standing dynamic balance to poor of 1 person to improve functional mobility and safety. Outcome: Met Note: Poor+ with bilat UE support and 1 person assist Goal: PT- LTG wheelchair management Description: PT - Patient will propel and manage wheelchair at least 300 ft with WI on multiple surfaces including ramps to improve functional mobility and safety. Outcome: Met Note: At least 300 ft on multiple surfaces including ramps Pt progressed well towards all goals and met or partially met them with increasing independence in all areas of mobility. Pt will need to use wheelchair as main mode of mobility. He will need to use sliding board for transfers, or have assist with use of RW for transfers. Pt's family did not come in for training due to work schedule. Recommend intermittent assist available and home health PT to continue to work on transfers with RW for home and community. Home Living Type of Home: House Home Layout: One level, Able to live on main level with bedroom/bathroom, Ramped entrance Bathroom Shower/Tub: Tub/shower unit Bathroom Toilet: Standard Bathroom Equipment: Tub transfer bench, Hand-held shower Bathroom Accessibility: Accessible via walker Home Equipment: Wheeled Walker, Wheelchair-manual(mayco rea, ) Additional Comments: Just recently was at [facility] for therapy Prior Level of Function Level of [place]: Independent with ADLs and functional transfers, Independent with homemaking with ambulation Lives With: Alone Receives Help From: Family ADL Assistance: Independent Homemaking Assistance: Independent Vocational: On disability Leisure: (cooking, shopping sports/electronics, target shoot, read, ) Comments: likes to build models, pt stayed in w/c most of the day, walked short distances at home, but was able to walk around stores ok though Goals: Skilled Therapy Needs After Discharge Are Skilled Therapy Services Needed After Discharge: Yes Intensity of Skilled Therapy: 2-3 days per week DME Recommendation: Wheeled walker, Wheelchair, Sliding board DME Rationale: Patient's condition prevents him/her from accomplishing ADL without recommended equipment, Patient's condition creates an increased risk of safety hazard without recommended equipment,Equipment required to maintain weight bearing status per physician orders, Wheelchair - mobility limitation cannot be safely resolved with ambulatory aide Rehab Potential: Good I have collaborated with the [employer] regarding the patient s progess towards goals and response to treatment. Pt then developed the required changes to the POC and determined justification or continuation of therapy. For complete objective data, detailed plan of care and patient education refer to: PT EVALUATION flow sheet, PT TREATMENT flow sheet, patient Plan of Care, Plan of Care progress note, and Patient Education. Handoff given to primary RN. Exit Protocol Followed: Yes * Adriano Peralta PA-C - 12/18/2019 12:54 PM EDT Patient ID: Patient Name: Dyllan Huertas Admit Date: 12/06/2019 MR #: [id number] : 1960 Current location: [facility] Physicians: Rohit Aguilar MD (Family); Marino Sheldon CNP (Referring) Reason for consult: Type 2 diabetes out of control Assessment/Plan: Dx: Type 2 diabetes, under poor control Patient would benefit from adjustment in insulin levels to seek euglycemia and aid in wound healing. See plan below. Currently taking as outpatient: Metformin 1000 mg twice daily Humalog insulin: 8 units at breakfast; 8 units at lunch; 8 units at supper Humalog sliding scale Lantus insulin: 30 units at breakfast; 30 units at bedtime Current Hemoglobin A1C= Lab Results Component Value Date HGBA1C 8.8 (H) 11/27/2019 HGBA1C 8.5 (H) 01/20/2019 NOTES: 12/07: Patient's blood glucose levels reviewed over the last 48 hours. Patient recently transferred to the inpatient rehabilitation unit blood glucose levels over the last for a 8 hours have ranged from 185-345 mg/dL. The present time he is taking 30 units of Lantus twice daily along with 8 units of Humalog with meals. Patient also takes metformin 1000 mg twice daily. 12/10: BG reviewed over the last 48 hours. Patient currently receiving Metformin 1000 mg daily, 12 units with meals + SS, and 35 units of Lantus BID. Patient reports that BG are better now than they usually are at home. 12/12: BG reviewed over the last 48 hours. Patient currently receiving Metformin 1000 mg daily, 12 units with meals + SS, and 35 units of Lantus BID. 12/14: BG reviewed over the last 48 hours. We received a call about patient's BG being 91 at supper time and them being worried about hypoglycemia with full supper time dose. Thus, patient was switched from Conservative SS to Insulin Sensitive SS with meals in addition to 09/14/12 of Humalog and 35/35 of Lantus. Blood Glucoses: 12/06: 242---341---239---345 12/07: 185---216---151---252 12/08: 203---190---133---153 12/09: 125---149---152---164 12/10: 168---162---153---195 12/11: 231---178---134---102 12/12: 137---160---159---191 12/13 129---233---91----214 12/15: 110---205--153---154 12/16: 124---193---115---130 12/17: 98--- Plan: 1. Rx changes: Adjust as below Humalog insulin: 12 units at breakfast; 12 units at lunch; 12 units at supper Lantus insulin: 35 units at breakfast; 35 units at bedtime Continue Metformin 1000 mg twice daily Decrease SSI to conservative dose. 12/10: CPM 12/12: CPM 12/14: We received a call about patient's BG being 91 yesterday at dinner. Thus, we decreased patient's SS to insulin sensitive but will continue 09/14/12 of Humalog and 35/35 of Lantus. 12/17: CPM while inpatient. Possible d/c tomorrow, patient would like to use ReliOn R and NPH at home. Suggested doses for this regimen to start as outpatient will be Regular 12u before meals and NPH 30u AM, 26u at HS. 2. Education: Reviewed ABCs of diabetes management (respective goals in parentheses): A1C (7.0-8.0), blood pressure (<130/80), and cholesterol (LDL <100). Referral to Diabetes Education Referral to Nutrition therapy Subjective: Brief HPI: 12/10: Patient sitting up in wheelchair finishing breakfast. He is without complaints this am. Patient reports that BG are better now than they usually are at home. We discussed that it is most likely diet related and patient admits to eating whatever he wants at home. 12/12: Patient sitting up in his wheelchair he had just finished breakfast. He is without complaintsthis morning. Patient reports that PT and OT are going well. 12/14: Patient sitting in wheelchair and had just finished breakfast. He reports that the current plan is for him to be discharged home on 12/19/2019. Patient reports that he wants to follow up with his PCP because he lives in [place] and will not transportation while he continues to recover. 12/17: Patient eating breakfast on exam, feeling well without complaints. Eager for discharge possibly tomorrow. Dyllan Huertas is a 59 y.o. male with a past medical history of type 2 DM w/ charcot joint arthropath. Patient recently underwent right midfoot wedge resection with application of external fixator (11/20/19). He was initially admitted on 11/30/2019 with osteomyelitis of right ankle. Patient was transferred to [place] inpatient rehab on 12/06/19. Hospital course significant for: debridement of right ankle; hyperglycemia. IV abx per ID. Patient reports that his pain is well controlled. He denies CP or SOB. He reports that he has numbness/tingling of lower limbs. Patient has had diabetes for close to 30 years. Diagnosed in his late s, he started with OHAs, transitioned to insulin in approximately 2011. Patient is currently taking Humalog insulin: 8 units at breakfast; 8 units at lunch; 8 units at supper Lantus insulin: 30 units at breakfast; 30 units at bedtime. Prior to admission he reports taking close to 50 units of R TID with meals and 50 units of lantus at HS. Patient reports he had considered changing to R and N due to cost of brand name insulin, however he is planning to delay that at this time. Blood sugar levels since admission have been ranging from 185-362 mg/dL. Current monitoring regimen: home blood tests - 2 times daily Complications of diabetes include: Retinopathy: Negative Nephropathy: Negative Peripheral Neuropathy: Positive Autonomic Neuropathy: Negative Allergies: No Known Allergies Home Medications: Current Facility-Administered Medications Medication Dose Route Frequency Provider Last Rate Last Dose acetaminophen (TYLENOL) tablet 650 mg 650 mg Oral Q4H PRN Helena Sheldon CNP 650 mg at 12/09/19 2142 albuterol (PROVENTIL) 2.5 mg /3 mL (0.083 %) nebulizer solution 2.5 mg 2.5 mg Inhalation Q2H PRN Helena Sheldon CNP aspirin EC tablet 162 mg 162 mg Oral Daily Helena Sheldon DE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 162 mg at 12/18/19 09 atorvastatin (LIPITOR) tablet 40 mg 40 mg Oral Nightly Helena Sheldon CNP 40 mg at 12/17/197 bisacodyL (DULCOLAX) suppository 10 mg 10 mg Rectal Daily PRN Helena Sheldon DE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 10 mg at 12/08/19 2242 calcium carbonate (TUMS) chewable tablet 1,000 mg 1,000 mg Oral Daily Helena Sheldon DE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 1,000mg at 12/18/19 0902 carvediloL (COREG) tablet 12.5 mg 12.5 mg Oral BID Helena Sheldon DE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 12.5 mg at 12/18/19 0901 docusate sodium (COLACE) capsule 100 mg 100 mg Oral Daily Helena Sheldon DE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 100 mg at 12/18/19 0901 docusate sodium (COLACE) capsule 100 mg 100 mg Oral BID PRN Helena Sheldon CNP 100 mg at 12/17/19 1642 fenofibrate tablet 160 mg 160 mg Oral Daily with breakfast Helena Sheldon CNP 160 mg at 12/18/19 0901 gabapentin (NEURONTIN) capsule 300 mg 300 mg Oral Q8H [facility] Helena Sheldon DE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 300 mg at 12/18/19 0454 insulin glargine (LANTUS) injection 35 Units 35 Units Subcutaneous BID Andrés Andre CNP 35 Units at 12/18/19 0902 insulin lispro (HumaLOG) injection 0-15 Units 0-15 Units Subcutaneous at bedtime Helena Sheldon CNP 0 Units at 12/17/192108 insulin lispro (HumaLOG) injection 0-30 Units 0-30 Units Subcutaneous TID Sera Bowden MD12 Units at 12/18/19 0903 levothyroxine (SYNTHROID, LEVOTHROID) tablet 112 mcg 112 mcg Oral Daily Helena Sheldon CNP 112mcg at 12/18/19 0453 magnesium oxide (MAG-OX) tablet 400 mg 400 mg Oral Daily Helena Sheldon CNP 400 mg at melatonin Tab 10 mg 10 mg Oral at bedtime Helena Sheldon CNP 10 mg at 12/17/192106 meropenem (MERREM) 1000 mg in sodium chloride (NS) 0.9% 50 mL (premix) 1,000 mg Intravenous Q12H Maria Isabel Awad MD Stopped at 12/18/19 0438 metFORMIN (GLUCOPHAGE) tablet 1,000 mg 1,000 mg Oral BID with meals Helena Sheldon CNP 1,000 mg at 12/18/19 09 naloxone (NARCAN) injection 0.1 mg 0.1 mg Intravenous PRN Helena Sheldon CNP And naloxone (NARCAN) injection 0.4 mg 0.4 mg Intravenous PRN Helena Sheldon CNP nitroGLYCERIN (NITROSTAT) SL tablet 0.4 mg 0.4 mg Sublingual Q5 Min PRN Helena Sheldon CNP ondansetron (ZOFRAN-ODT) disintegrating tablet 4 mg 4 mg Oral Q6H PRN Helena Sheldon CNP psyllium (METAMUCIL) powder 1 packet 1 packet Oral Daily Kyung Doran [facility],PharmD 1 packet at 12/18/19 0901 senna (SENOKOT) tablet 8.6 mg 1 tablet Oral BID PRN Helena Sheldon CNP sodium phosphates (FLEETS ADULT) 19-7 gram/118 mL enema 1 each 1 each Rectal Daily PRN Helena Jaimes CNP tamsulosin (FLOMAX) 24 hr capsule 0.4 mg 0.4 mg Oral After evening meal Helena Sheldon CNP 0.4mg at 12/17/19 1642 traZODone (DESYREL) tablet 50 mg 50 mg Oral Nightly PRN Helena Sheldon CNP Current Medications: aspirin 162 mg Oral Daily atorvastatin 40 mg Oral Nightly calcium carbonate 1,000 mg Oral Daily carvediloL 12.5 mg Oral BID docusate sodium 100 mg Oral Daily fenofibrate 160 mg Oral Daily with breakfast gabapentin 300 mg Oral Q8H LESLEY insulin glargine 35 Units Subcutaneous BID lispro insulin 0-15 Units Subcutaneous at bedtime insulin lispro 0-30 Units Subcutaneous TID AC levothyroxine 112 mcg Oral Daily magnesium oxide 400 mg Oral Daily melatonin 10 mg Oral at bedtime meropenem 1,000 mg Intravenous Q12H metFORMIN 1,000 mg Oral BID with meals psyllium husk 1 packet Oral Daily tamsulosin 0.4 mg Oral After evening meal acetaminophen, albuterol, bisacodyL, docusate sodium, nalOXone AND Notify physician AND naloxone, nitroGLYCERIN, ondansetron, senna, sodium phosphates, traZODone Review of Systems: Review of Systems Constitutional: Positive for activity change, fatigue and unexpected weight change. HENT: Negative for trouble swallowing. Eyes: Negative for visual disturbance. Respiratory: Negative for cough and shortness of breath. Cardiovascular: Negative for chest pain and leg swelling. Gastrointestinal: Negative for abdominal pain, constipation, diarrhea, nausea and vomiting. Endocrine: Negative for polydipsia, polyphagia and polyuria. Genitourinary: Schulte in place Musculoskeletal: Positive for arthralgias and myalgias. Skin: Negative for wound. Neurological: Positive for weakness and numbness (and tingling). Negative for headaches. Psychiatric/Behavioral: Negative for agitation and sleep disturbance. The patient is not nervous/anxious. History: Past Medical History: Diagnosis Date Coronary artery disease Diabetes mellitus, type 2 (HCC) Hyperlipidemia Hypertension Hypothyroidism Peripheral neuropathy S/P foot surgery, right 12/09/2019 11/20/2019Right foot reconstruction surgery with external fixation 12/02/2019 Right foot I and D Sleep apnea, obstructive does not use CPAP Past Surgical History: Procedure Laterality Date APPENDECTOMY ARTHROPLASTY TOE Right 01/25/2019 Procedure: ARTHROPLASTY 2ND TOE RIGHT FOOT; Surgeon: Rosa M Robles DPM; Location: [facility] [place] OR; Service: Podiatry CABG 2017 CARDIAC SURGERY 2017 CABG tripe bypass CLOSED REDUCTION PERCUTANEOUS PINNING LOWER EXTREMITY N/A 12/02/2019 Procedure: ADJUSTMENT of EXTERNAL FIXATOR; Surgeon: Alena Mora DPM; Location: [facility] OR; Service: Podiatry CYST REMOVED FROM CHEST N/A INCISION AND DRAINAGE FOOT AND ANKLE Right 12/02/2019 Procedure: RIGHT FOOT I&D; Surgeon: Alena Mora DPM; Location: Main OR; Service: Podiatry METAL IN LEFT LEFT WRIST AND LEFT 5TH TOE Left ORTHOPEDIC SURGERY RECONSTRUCTION FOOT CHARCOT Right 11/20/2019 Procedure: RIGHT FOOT RECONSTRUCTION WITH APPLICATION OF CIRCULAR STATIC EXTERNAL FIXATION; Surgeon: Alena Mora DPM; Location: [facility] OR; Service: Podiatry RT FOOT SURGERY Right TUMMY TUCK N/A Family History Problem Relation Age of Onset Heart disease Mother Heart disease Father Heart disease Brother Diabetes Sister Social History Tobacco Use Smoking status: Never Smoker Smokeless tobacco: Never Used Substance Use Topics Alcohol use: Yes Comment: occassionally mostly beer Drug use: Never The following portions of the patient's history were reviewed and updated as appropriate: allergies, current medications, past family history, past medical history, past social history, past surgicalhistory and problem list. Objective: BP 136/65 (BP Location: Left arm, Patient Position: Lying) Pulse 78 Temp 97.4 F (36.3 C) (Oral) Resp 12 Ht 5' 11 Wt 116 kg (255 lb 11.7 oz) SpO2 96% BMI 35.67 kg/m Wt Readings from Last 3 Encounters: 12/17/19 116 kg (255 lb 11.7 oz) 11/30/19 128 kg (282 lb 3 oz) 11/20/19 129.4 kg (285 lb 4.4 oz) Physical Exam: Physical Exam Constitutional: He is oriented to person, place, and time. He appears well- developed and well-nourished. HENT: Head: Normocephalic and atraumatic. Eyes: Pupils are equal, round, and reactive to light. Conjunctivae are normal. Neck: Normal range of motion. Neck supple. No thyromegaly present. Cardiovascular: Normal rate, regular rhythm, normal heart sounds and intact distal pulses. Pulmonary/Chest: Effort normal and breath sounds normal. No respiratory distress. He has no wheezes. Abdominal: Soft. Bowel sounds are normal. He exhibits no distension. Genitourinary: Genitourinary Comments: Schulte in place Musculoskeletal: General: Edema (BLE) present. Comments: Right foot wrapped with ZECHARIAH bandage. External fixator in place. Left foot in diabetic shoe, not examined by this provider Neurological: He is alert and oriented to person, place, and time. Skin: Skin is warm and dry. Psychiatric: He has a normal mood and affect. His behavior is normal. Judgment and thought content normal. Laboratory Review: BP 136/65 (BP Location: Left arm, Patient Position: Lying) Pulse 78 Temp 97.4 F (36.3 C) (Oral) Resp 12 Ht 5' 11 Wt 116 kg (255 lb 11.7 oz) SpO2 96% BMI 35.67 kg/m Lab Results Component Value Date HGBA1C 8.8 (H) 11/27/2019 Glucose (mg/dL) Date Value 12/12/2019 167 (H) Creatinine (mg/dL) Date Value 12/12/2019 0.89 Lab Results Component Value Date CHOL 115 11/27/2019 TRIG 177 (H) 11/27/2019 HDL 28 (L) 11/27/2019 LDLCALC 52 11/27/2019 Lab Results Component Value Date TSH 1.63 11/27/2019 No results found for: FREET4 Lab Results Component Value Date WBC 4.12 (L) 12/12/2019 HGB 10.8 (L) 12/12/2019 HCT 35.6 (L) 12/12/2019 MCV 86.2 12/12/2019 PLT 203 12/12/2019 This SmartLink has not been configured with any valid records. This SmartLink has not been configured with any valid records. Laboratory and Additional Data Reviewed: Laboratory 12/18/19 1:05 PM Medications 12/18/19 1:05 PM Transcriptions 12/18/19 1:05 PM Electronically signed by: Adriano Peralta PA-C, [facility] 12/18/19 2:24 PM * Maria Isabel Awad MD - 12/18/2019 12:22 PM EDT 12/04/2019 Patient Name: Dyllan Huertas Admit Date: MR #: [id number] : 1960 Physicians: Rohit Aguilar MD (Family); No ref. provider found (Referring) Assessment and Plan: Impression Impression Right foot ulcer status post surgical intervention Severe Charcot deformity status post surgical intervention Enterobacter cloaca infection and gram-negative infection see cultures below Mika which is a gram-negative Acute osteomyelitis bone culture on 11/20/2019+ for the same pathogen that was present in January 2019is Enterobacter cloaca pansensitive RAJINDER none on chart 11/24/2019 Osteomyelitis as bone culture is positive from 11/20/2019 for Enterobacter cloaca 11/30/2019 New drainage from the pin site Elevated sed rate Elevated CRP Osteomyelitis right foot 12/01/2019 Osteomyelitis right foot Delayed healing of the plantar foot postop wound Cellulitis of the foot 12/04/2019 Status post surgical intervention with incision and drainage by Dr. Mora on 12/02/2019 cultures now with normal chalino AF[employer] and fungus negative 12/05/2019 Sed rate 85 CRP 85 Per rehab physician there is a risk for the left ankle issues especially with diabetic neuropathy in the left foot and he has had right foot surgery 12/06/2019 OR cultures negative elevated CRP could be just postop We will continue IV antibiotics as planned till January 01 Rocephin 2 g every 24 hours 12/11/2019 Right foot wound with some maceration drainage 12/12/2019 CRP improving Plan 12/18/2019 OPAT referral IV meropenem 1 g every 12 till January 01 Home IV antibiotic by [facility] Any dressing orders would be per Dr. Mora CBC CMP sed rate CRP every Wednesday12/14/2019 and 12/15/2019 Continue IV meropenem till January 01 if he can manage to do that Await a picture by podiatry upon dressing change today I have discussed with podiatry Will plan for CBC CMP sed rate CRP next week 12/12/2019 Patient tolerating the meropenem Will await Dr. Mora to check the dressing on the wound at her next rounds Discontinue Rocephin Start meropenem 1 g IV every 12 for the Enterobacter and the other gram-negative that he had seen in the cultures especially with the extensive surgery that was done and he had some drainage on the weekend Continue IV antibiotics till January 01 CBC CMP sed rate CRP Will discuss with Dr. Lopez and Dr. Mora 12/08/2019 Rocephin continued till January 01 Urinary retention to be evaluated by Dr. Lopez Will await for Dr. Mora to do the dressings 12/07/2019 Rocephin 2 g IV 24 hours till January 01 Discontinue Schulte catheter CBC CMP sed rate CRP on Wednesday12/06/2019 Rocephin 2 g to 24 hours till January 01 CBC CMP sed rate CRP periodically Transfer to rehab he has been accepted Will follow the patient in rehab with Dr. Lopez and Dr. Mora 12/05/2019 Rocephin 2 g IV 24 hours continue till January 01 because of the second surgery Elevated sed rate CRP will be followed Await transfer to rehab if approved and bed available 12/04/2019 Rocephin 2 g IV every 24 hours CBC CMP sed rate CRP Rehab referral with Dr. Lopez here if possible We will discuss with podiatry I have discussed with hospitalist OR cultures normal chalino negative AFB and fungus Blood cultures negative so far 12/01/2019 Continue Rocephin till further cultures available CBC CMP sed rate CRP Blood cultures x2 half an hour apart He did bleed well even in the wound clinic yesterday at some point will order arterial Dopplers I have discussed with podiatry at length 11/30/2019 Culture the pin site that is bleeding and draining Follow-up CBC Liver function test Rocephin 2 g IV every 24 hours continue till December 18 May need to go up to additional 2 weeks afterMar which will be January 01 we will decide based on lab results and clinical response If the culture of the pin site shows any additional pathogens may need to readmit for additional IVantibiotics and streamlining treatment Revisit 1 week both I have discussed with podiatry Chief Complaint/Reason for Visit: I am seeing this patient at the request of Dr. Boogie Phan MD. I have reviewed the current hospital record, available laboratory, cardiology and imaging studies as well as available out patient records. History of Present Illness: Admission H&P by Boogie Phan MD on 11/30/2019: Dyllan Huertas is a 59 y.o. male presenting from home with h/o diabetes on disability since 2014 related to a Charcot foot and diabetes developed an ulcer in the beginning of 2019 was being followed by Dr. Robles at the office we have cultures from last year in January with Enterobacter and since then culture with gram-negative bacteria also was seen by Dr. Mora was found to have severe Charcot a corrective surgery was done with placement of an external fixator on 11/20. Today at wound clinic follow up was found to have increased drainage from one of the pin sites, being admitted for continued IV ATB and possible OR/ exploration in am. Exam: Tmax: 99 Urine Output: 2000 Stool: not recorded PACU Vitals 12/18/19 0649 BP: 136/65 Pulse: 78 Resp: 12 Temp: 97.4 F (36.3 C) SpO2: 96% Allergies: no known allergies. Current Facility-Administered Medications: acetaminophen (TYLENOL) tablet 650 mg, 650 mg, Oral, Q4H PRN, Helena Sheldon CNP, 650 mg at 12/09/19 2142 albuterol (PROVENTIL) 2.5 mg /3 mL (0.083 %) nebulizer solution 2.5 mg, 2.5 mg, Inhalation, Q2H PRN, Helena Sheldon CNP aspirin EC tablet 162 mg, 162 mg, Oral, Daily, Helena Sheldon CNP, 162 mg at 12/18/19900 atorvastatin (LIPITOR) tablet 40 mg, 40 mg, Oral, Nightly, Helena Sheldon CNP, 40 mg at 12/17/192106 bisacodyL (DULCOLAX) suppository 10 mg, 10 mg, Rectal, Daily PRN, Helena Sheldon CNP, 10 mg at12/08/19 224 calcium carbonate (TUMS) chewable tablet 1,000 mg, 1,000 mg, Oral, Daily, Helena Sheldon CNP, 1,000 mg at 12/18/19901 carvediloL (COREG) tablet 12.5 mg, 12.5 mg, Oral, BID, Helena Sheldon CNP, 12.5 mg at docusate sodium (COLACE) capsule 100 mg, 100 mg, Oral, Daily, Helena Sheldon CNP, 100 mg at 12/18/19900 docusate sodium (COLACE) capsule 100 mg, 100 mg, Oral, BID PRN, Helena Sheldon CNP, 100 mg at 12/17/19 1642 fenofibrate tablet 160 mg, 160 mg, Oral, Daily with breakfast, Helena Sheldon CNP, 160 mg at 12/18/19 09 gabapentin (NEURONTIN) capsule 300 mg, 300 mg, Oral, Q8H LESLEY, Helena Sheldon CNP, 300 mg at 12/18/19 0454 insulin glargine (LANTUS) injection 35 Units, 35 Units, Subcutaneous, BID, Andrés Andre CNP, 35 Units at 12/18/19 09 insulin lispro (HumaLOG) injection 0-15 Units, 0-15 Units, Subcutaneous, at bedtime, Helena Sheldon CNP, 0 Units at 12/17/192108 insulin lispro (HumaLOG) injection 0-30 Units, 0-30 Units, Subcutaneous, TID AC, Sera Bowden MD, 12 Units at 12/18/19 09 levothyroxine (SYNTHROID, LEVOTHROID) tablet 112 mcg, 112 mcg, Oral, Daily, Helena Sheldon CNP, 112 mcg at 12/18/19 045 magnesium oxide (MAG-OX) tablet 400 mg, 400 mg, Oral, Daily, Helena Sheldon CNP, 400 mg at 12/18/19 09 melatonin Tab 10 mg, 10 mg, Oral, at bedtime, Helena Sheldon CNP, 10 mg at 12/17/192106 meropenem (MERREM) 1000 mg in sodium chloride (NS) 0.9% 50 mL (premix), 1,000 mg, Intravenous, Q12H, Maria Isabel Awad MD, Stopped at 12/18/19 0438 metFORMIN (GLUCOPHAGE) tablet 1,000 mg, 1,000 mg, Oral, BID with meals, Helena Sheldon CNP, 1,000 mg at 12/18/19 09 naloxone (NARCAN) injection 0.1 mg, 0.1 mg, Intravenous, PRN AND Notify physician, , , Until Discontinued AND naloxone (NARCAN) injection 0.4 mg, 0.4 mg, Intravenous, PRN, Helena Sheldon CNP nitroGLYCERIN (NITROSTAT) SL tablet 0.4 mg, 0.4 mg, Sublingual, Q5 Min PRN, Helena Sheldon CNP ondansetron (ZOFRAN-ODT) disintegrating tablet 4 mg, 4 mg, Oral, Q6H PRN, Helena Sheldon CNP psyllium (METAMUCIL) powder 1 packet, 1 packet, Oral, Daily, Kyung Doran [facility],PharmD, 1 packet at 12/18/19 0901 senna (SENOKOT) tablet 8.6 mg, 1 tablet, Oral, BID PRN, Helena Sheldon CNP sodium phosphates (FLEETS ADULT) 19-7 gram/118 mL enema 1 each, 1 each, Rectal, Daily PRN, Catarina Sheldon CNP tamsulosin (FLOMAX) 24 hr capsule 0.4 mg, 0.4 mg, Oral, After evening meal, Helena Sheldon CNP, 0.4 mg at 12/17/19 1642 traZODone (DESYREL) tablet 50 mg, 50 mg, Oral, Nightly PRN, Helena Sheldon CNP PMH/PSH/SH/FH reviewed, no change except: Status post surgical intervention by Dr. Mora on 12/02/2019 12/05/2019 Patient was seen by rehab physician rehab evaluation in progress patient's left ankle is at risk because of right foot surgery and diabetic neuropathy in the left foot also 12/07/2019 patient is now in rehab Review of Systems: All systems were reviewed and negative except: Denies any fever chills no pain in the right leg and foot 12/06/2019 denies any fever chills or diarrhea 12/08/2019 Schulte had to be reinserted for urinary increase residual 12/11/2019 Dressing was changed by Dr. Mora on Wednesday there was some drainage culture was done there was some maceration culture result is normal chalino Dr. Mora's note was reviewed by mo Medications Reviewed. Chart Reviewed. Exam Findings: Constitutional: HENT: Pupils reactive head: No oral candidiasis Eyes: No icterus Neck: Supple Cardiovascular: Heart S1-S2 2 by systolic murmur present no S3 Murmur Pulmonary/Chest: Clear Abdominal: Soft Musculoskeletal: No calf tenderness on the right leg Neurological: Has diabetic neuropathy with Charcot is able to wiggle the toes Skin postop dressing with Kerlix no drainage noted today no foul odor Patient drain has been removed by Dr. Mora over the weekend There was some maceration seen on the wound site on 12/10/2019 culture is normal chalino Schulte: Bard Schulte catheter with clear urine is being clamped now IV: Midline in the right arm site looks good denies any discomfort other: External fixator in place no drainage noted on the dressing wound to be examined by podiatrytoday Pin sites without any bleeding Zechariah bandage in place with no drainage Laboratory and Additional Data Reviewed: Date: 12/18/2019 No new labs/results as of last note Update from previous note Tmax: 98.1 Urine Output: 3950 Stool: not recorded Current Antibiotics: Merrem 1,000 mg IV every 12 Hours Previous Antibiotic: Rocephin 2 gm IV every 24 Hours Ancef 2,000 mg IV every 8 Hours Pre/Post Procedure I have personally reviewed the labs and results Test results Laboratory and Additional Data Reviewed: Current Cultures: 12/10/2019 Right Foot Wound Aerobic Culture: Normal Chalino After 48 Hours. Final 12/10/2019 Right foot wound, anaerobic culture: No anaerobic growth at 2 days. Final 12/08/2019 Urine Aerobic Culture: No Growth (<1,000 CFU/mL). Final. 12/07/2019 Urine Aerobic Culture on arrival to Nursing Rehab Unit: No Growth (<1,000 CFU/mL). Final. 12/02/2019 Right Foot Tissue Aerobic Culture: Normal Chalino After 48 Hours. Final. 12/02/2019 Right Foot Tissue AFB Culture: No Acid Fast Bacilli Seen. Preliminary. 12/02/2019 Right Foot Tissue Anaerobic Culture: No Anaerobic Growth at 2 Days. Final. 12/02/2019 Right Foot Tissue Fungus Culture: Fungal Culture in Progress. Preliminary. 12/01/2019 Blood Culture #1: No Growth After 5 Days. Final. 12/01/2019 Blood Culture #2: No Growth After 5 Days. Final. 11/30/2019 Right Foot Wound Aerobic Culture: Normal Chalino After 48 Hours. Final. 11/21/2019 Left Leg Wound Aerobic Culture: Normal Chalino After 48 Hours. Final. 11/20/2019 Right Foot Tissue Aerobic Culture: Moderate Growth Enterobacter cloacae complex, S=Youssef Sensitive. Final. 11/20/2019 Right Foot Tissue Anaerobic Culture: No Anaerobic Growth at 2 Days. Final. 11/20/2019 Right Foot Bone Aerobic Culture: Light Growth Enterobacter Cloacae Complex, S=Youssef Sensitive. Final. 11/20/2019 Right Foot Bone Anaerobic Culture: No Anaerobic Growth at 2 Days. Final Date: 12/15/2019 New labs/results as of last note Update from previous note Tmax: 98.7 Urine Output: 1900 Stool: not recorded Current Antibiotics: Merrem 1,000 mg IV every 12 Hours Previous Antibiotic: Rocephin 2 gm IV every 24 Hours Ancef 2,000 mg IV every 8 Hours Pre/Post Procedure I have personally reviewed the labs and results Test results Laboratory and Additional Data Reviewed: Current Cultures: 12/10/2019 Right Foot Wound Aerobic Culture: Normal Chalino After 48 Hours. Final 12/10/2019 Right foot wound, anaerobic culture: No anaerobic growth at 2 days. Final 12/08/2019 Urine Aerobic Culture: No Growth (<1,000 CFU/mL). Final. 12/07/2019 Urine Aerobic Culture on arrival to Nursing Rehab Unit: No Growth (<1,000 CFU/mL). Final. 12/02/2019 Right Foot Tissue Aerobic Culture: Normal Chalino After 48 Hours. Final. 12/02/2019 Right Foot Tissue AFB Culture: No Acid Fast Bacilli Seen. Preliminary. 12/02/2019 Right Foot Tissue Anaerobic Culture: No Anaerobic Growth at 2 Days. Final. 12/02/2019 Right Foot Tissue Fungus Culture: Fungal Culture in Progress. Preliminary. 12/01/2019 Blood Culture #1: No Growth After 5 Days. Final. 12/01/2019 Blood Culture #2: No Growth After 5 Days. Final. 11/30/2019 Right Foot Wound Aerobic Culture: Normal Chalino After 48 Hours. Final. 11/21/2019 Left Leg Wound Aerobic Culture: Normal Chalino After 48 Hours. Final. 11/20/2019 Right Foot Tissue Aerobic Culture: Moderate Growth Enterobacter cloacae complex, S=Youssef Sensitive. Final. 11/20/2019 Right Foot Tissue Anaerobic Culture: No Anaerobic Growth at 2 Days. Final. 11/20/2019 Right Foot Bone Aerobic Culture: Light Growth Enterobacter Cloacae Complex, S=Youssef Sensitive. Final. 11/20/2019 Right Foot Bone Anaerobic Culture: No Anaerobic Growth at 2 Days. Final Date: 12/14/2019 New labs/ results as of last note: 12/12/2019 T-Max: 98.6 Output: Urine 2150 ml Stool not recorded Current Antibiotics: Merrem 1,000 mg IV every 12 Hours Previous Antibiotic: Rocephin 2 gm IV every 24 Hours Ancef 2,000 mg IV every 8 Hours Pre/Post Procedure I have personally reviewed the labs and results Test results Laboratory and Additional Data Reviewed: Current Cultures: 12/10/2019 Right Foot Wound Aerobic Culture: Normal Chalino After 48 Hours. Final 12/10/2019 Right foot wound, anaerobic culture: No anaerobic growth at 2 days. Final 12/08/2019 Urine Aerobic Culture: No Growth (<1,000 CFU/mL). Final. 12/07/2019 Urine Aerobic Culture on arrival to Nursing Rehab Unit: No Growth (<1,000 CFU/mL). Final. 12/02/2019 Right Foot Tissue Aerobic Culture: Normal Chalino After 48 Hours. Final. 12/02/2019 Right Foot Tissue AFB Culture: No Acid Fast Bacilli Seen. Preliminary. 12/02/2019 Right Foot Tissue Anaerobic Culture: No Anaerobic Growth at 2 Days. Final. 12/02/2019 Right Foot Tissue Fungus Culture: Fungal Culture in Progress. Preliminary. 12/01/2019 Blood Culture #1: No Growth After 5 Days. Final. 12/01/2019 Blood Culture #2: No Growth After 5 Days. Final. 11/30/2019 Right Foot Wound Aerobic Culture: Normal Chalino After 48 Hours. Final. 11/21/2019 Left Leg Wound Aerobic Culture: Normal Chalino After 48 Hours. Final. 11/20/2019 Right Foot Tissue Aerobic Culture: Moderate Growth Enterobacter cloacae complex, S=Youssef Sensitive. Final. 11/20/2019 Right Foot Tissue Anaerobic Culture: No Anaerobic Growth at 2 Days. Final. 11/20/2019 Right Foot Bone Aerobic Culture: Light Growth Enterobacter Cloacae Complex, S=Youssef Sensitive. Final. 11/20/2019 Right Foot Bone Anaerobic Culture: No Anaerobic Growth at 2 Days. Final Update from previous note Date: 12/12/2019 New labs/results as of last note Update from previous note Tmax: 99.2 Urine Output: 1600 Stool: not recorded Current Antibiotics: Merrem 1,000 mg IV every 12 Hours Previous Antibiotic: Rocephin 2 gm IV every 24 Hours Ancef 2,000 mg IV every 8 Hours Pre/Post Procedure I have personally reviewed the labs and results Test results Laboratory and Additional Data Reviewed: Labs: CMP 12/12/2019 06:11 Glucose: 167 BUN: 26 Creatinine: 0.89 Sodium: 140 Potassium: 4.3 Total Protein: 6.7 Albumin: 2.5 Alk Phos: 83 AST: 35 ALT: 52 Total Bilirubin: 0.3 CBC 12/12/2019 06:11 WBC: 4.12 RBC: 4.13 Hgb: 10.8 Hct: 35.6 Platelets: 203 Lymphocytes Abs: 0.66 CRP 12/12/2019 06:11 52.4 Current Cultures: 12/10/2019 Right Foot Wound Aerobic Culture: Normal Chalino After 24 Hours. Preliminary. 12/08/2019 Urine Aerobic Culture: No Growth (<1,000 CFU/mL). Final. 12/07/2019 Urine Aerobic Culture on arrival to Nursing Rehab Unit: No Growth (<1,000 CFU/mL). Final. 12/02/2019 Right Foot Tissue Aerobic Culture: Normal Chalino After 48 Hours. Final. 12/02/2019 Right Foot Tissue AFB Culture: No Acid Fast Bacilli Seen. Preliminary. 12/02/2019 Right Foot Tissue Anaerobic Culture: No Anaerobic Growth at 2 Days. Final. 12/02/2019 Right Foot Tissue Fungus Culture: Fungal Culture in Progress. Preliminary. 12/01/2019 Blood Culture #1: No Growth After 5 Days. Final. 12/01/2019 Blood Culture #2: No Growth After 5 Days. Final. 11/30/2019 Right Foot Wound Aerobic Culture: Normal Chalino After 48 Hours. Final. 11/21/2019 Left Leg Wound Aerobic Culture: Normal Chalino After 48 Hours. Final. 11/20/2019 Right Foot Tissue Aerobic Culture: Moderate Growth Enterobacter cloacae complex, S=Youssef Sensitive. Final. 11/20/2019 Right Foot Tissue Anaerobic Culture: No Anaerobic Growth at 2 Days. Final. 11/20/2019 Right Foot Bone Aerobic Culture: Light Growth Enterobacter Cloacae Complex, S=Youssef Sensitive. Final. 11/20/2019 Right Foot Bone Anaerobic Culture: No Anaerobic Growth at 2 Days. Final. Date: 12/11/2019 New labs/results as of last note Update from previous note Tmax: 98.7 Urine Output: 2500 Stool: X1 Current Antibiotics: Rocephin 2 gm IV every 24 Hours until 01/02/2020 Previous Antibiotic: Ancef 2,000 mg IV every 8 Hours Pre/Post Procedure I have personally reviewed the labs and results Test results Laboratory and Additional Data Reviewed: U/A 12/08/2019 Glucose: 150 Blood: Small WBC: 7 Bacteria: Rare Labs: Vitamin D, Total 12/07/2019 04:55 16 B12/Folate 12/07/2019 04:55 B12: 828 Folate: >20.0 Ferritin 12/07/2019 04:55 211 Iron 12/07/2019 04:55 30 CMP 12/07/2019 04:55 Glucose: 243 BUN: 17 Creatinine: 0.86 Sodium: 138 Potassium: 3.9 Total Protein: 6.6 Albumin: 2.4 Alk Phos: 76 AST: 28 ALT: 40 Total Bilirubin: 0.4 CBC 12/07/2019 04:54 WBC: 6.95 Hgb: 11.3 Hct: 36.8 Platelets: 210 Lymphocytes Abs: 0.64 CRP 12/05/2019 07:58 85.3 U/A 12/07/2019 Protein: 30 Glucose: >=500 Blood: Small Leukocyte Esterase: Trace Renal Epithelial: <1 Current Cultures: 12/10/2019 Right Foot Wound Aerobic Culture: Rare WBC. Rare Epithelial Cells. No Organisms Seen. Preliminary. 12/08/2019 Urine Aerobic Culture: No Growth (<1,000 CFU/mL). Final. 12/07/2019 Urine Aerobic Culture on arrival to Nursing Rehab Unit: No Growth (<1,000 CFU/mL). Final. 12/02/2019 Right Foot Tissue Aerobic Culture: Normal Chalino After 48 Hours. Final. 12/02/2019 Right Foot Tissue AFB Culture: No Acid Fast Bacilli Seen. Preliminary. 12/02/2019 Right Foot Tissue Anaerobic Culture: No Anaerobic Growth at 2 Days. Final. 12/02/2019 Right Foot Tissue Fungus Culture: Fungal Culture in Progress. Preliminary. 12/01/2019 Blood Culture #1: No Growth After 5 Days. Final. 12/01/2019 Blood Culture #2: No Growth After 5 Days. Final. 11/30/2019 Right Foot Wound Aerobic Culture: Normal Chalino After 48 Hours. Final. 11/21/2019 Left Leg Wound Aerobic Culture: Normal Chalino After 48 Hours. Final. 11/20/2019 Right Foot Tissue Aerobic Culture: Moderate Growth Enterobacter cloacae complex, S=Youssef Sensitive. Final. 11/20/2019 Right Foot Tissue Anaerobic Culture: No Anaerobic Growth at 2 Days. Final. 11/20/2019 Right Foot Bone Aerobic Culture: Light Growth Enterobacter Cloacae Complex, S=Youssef Sensitive. Final. 11/20/2019 Right Foot Bone Anaerobic Culture: No Anaerobic Growth at 2 Days. Final. Date: 12/08/2019 New labs/results as of last note Update from previous note Tmax: 99.2 Urine Output: 4950 Stool: not recorded Current Antibiotics: Rocephin 2 gm IV every 24 Hours until 01/02/2020 Previous Antibiotic: Ancef 2,000 mg IV every 8 Hours Pre/Post Procedure I have personally reviewed the labs and results Test results Laboratory and Additional Data Reviewed: U/A 12/08/2019 Glucose: 150 Blood: Small WBC: 7 Bacteria: Rare Labs: Vitamin D, Total 12/07/2019 04:55 16 B12/Folate 12/07/2019 04:55 B12: 828 Folate: >20.0 Ferritin 12/07/2019 04:55 211 Iron 12/07/2019 04:55 30 CMP 12/07/2019 04:55 Glucose: 243 BUN: 17 Creatinine: 0.86 Sodium: 138 Potassium: 3.9 Total Protein: 6.6 Albumin: 2.4 Alk Phos: 76 AST: 28 ALT: 40 Total Bilirubin: 0.4 CBC 12/07/2019 04:54 WBC: 6.95 Hgb: 11.3 Hct: 36.8 Platelets: 210 Lymphocytes Abs: 0.64 CRP 12/05/2019 07:58 85.3 U/A 12/07/2019 Protein: 30 Glucose: >=500 Blood: Small Leukocyte Esterase: Trace Renal Epithelial: <1 Current Cultures: 12/07/2019 Urine Aerobic Culture on arrival to Nursing Rehab Unit: No Growth, Incubation Continued.Preliminary. 12/02/2019 Right Foot Tissue Aerobic Culture: Normal Chalino After 48 Hours. Final. 12/02/2019 Right Foot Tissue AFB Culture: No Acid Fast Bacilli Seen. Preliminary. 12/02/2019 Right Foot Tissue Anaerobic Culture: No Anaerobic Growth at 2 Days. Final. 12/02/2019 Right Foot Tissue Fungus Culture: Fungal Culture in Progress. Preliminary. 12/01/2019 Blood Culture #1: No Growth After 5 Days. Final. 12/01/2019 Blood Culture #2: No Growth After 5 Days. Final. 11/30/2019 Right Foot Wound Aerobic Culture: Normal Chalino After 48 Hours. Final. 11/21/2019 Left Leg Wound Aerobic Culture: Normal Chalino After 48 Hours. Final. 11/20/2019 Right Foot Tissue Aerobic Culture: Moderate Growth Enterobacter cloacae complex, S=Youssef Sensitive. Final. 11/20/2019 Right Foot Tissue Anaerobic Culture: No Anaerobic Growth at 2 Days. Final. 11/20/2019 Right Foot Bone Aerobic Culture: Light Growth Enterobacter Cloacae Complex, S=Youssef Sensitive. Final. 11/20/2019 Right Foot Bone Anaerobic Culture: No Anaerobic Growth at 2 Days. Final. Radiology: Left Ankle X-Ray 12/07/2019 1. A new screw internally fixes the base of the 5th metatarsal to near anatomic alignment, however this screw is broken/fractured. 2. 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 Lateral subluxation of the 2nd through 5th metatarsal bases is again noted, as well as pes planus deformity. 3. Milder arthritis is noted in the tibiotalar joint and subtalar joint. 4. Large calcaneal enthesophytes are noted at the insertion sites of the plantar fascia and Achilles tendon. 5. No acute fracture, or other acute bony abnormality is seen. Date: 12/07/2019 New labs/results as of last note Update from previous note Tmax: 99.1 Urine Output: 1800 Stool: not recorded Current Antibiotics: Rocephin 2 gm IV every 24 Hours until 01/02/2020 Previous Antibiotic: Ancef 2,000 mg IV every 8 Hours Pre/Post Procedure I have personally reviewed the labs and results Test results Laboratory and Additional Data Reviewed: Labs: Vitamin D, Total 12/07/2019 04:55 16 B12/Folate 12/07/2019 04:55 B12: 828 Folate: >20.0 Ferritin 12/07/2019 04:55 211 Iron 12/07/2019 04:55 30 CMP 12/07/2019 04:55 Glucose: 243 BUN: 17 Creatinine: 0.86 Sodium: 138 Potassium: 3.9 Total Protein: 6.6 Albumin: 2.4 Alk Phos: 76 AST: 28 ALT: 40 Total Bilirubin: 0.4 CBC 12/07/2019 04:54 WBC: 6.95 Hgb: 11.3 Hct: 36.8 Platelets: 210 Lymphocytes Abs: 0.64 CRP 12/05/2019 07:58 85.3 U/A 12/07/2019 Protein: 30 Glucose: >=500 Blood: Small Leukocyte Esterase: Trace Renal Epithelial: <1 Current Cultures: 12/02/2019 Right Foot Tissue Aerobic Culture: Normal Chalino After 48 Hours. Final. 12/02/2019 Right Foot Tissue AFB Culture: No Acid Fast Bacilli Seen. Preliminary. 12/02/2019 Right Foot Tissue Anaerobic Culture: No Anaerobic Growth at 2 Days. Final. 12/02/2019 Right Foot Tissue Fungus Culture: Fungal Culture in Progress. Preliminary. 12/01/2019 Blood Culture #1: No Growth After 5 Days. Final. 12/01/2019 Blood Culture #2: No Growth After 5 Days. Final. 11/30/2019 Right Foot Wound Aerobic Culture: Normal Chalino After 48 Hours. Final. 11/21/2019 Left Leg Wound Aerobic Culture: Normal Chalino After 48 Hours. Final. 11/20/2019 Right Foot Tissue Aerobic Culture: Moderate Growth Enterobacter cloacae complex, S=Youssef Sensitive. Final. 11/20/2019 Right Foot Tissue Anaerobic Culture: No Anaerobic Growth at 2 Days. Final. 11/20/2019 Right Foot Bone Aerobic Culture: Light Growth Enterobacter Cloacae Complex, S=Youssef Sensitive. Final. 11/20/2019 Right Foot Bone Anaerobic Culture: No Anaerobic Growth at 2 Days. Final. Date: 12/06/2019 New labs/results as of last note Update from previous note Tmax: 99 Urine Output: 1250 Stool: not recorded Current Antibiotics: Rocephin 2 gm IV every 24 Hours until 01/02/2020 Previous Antibiotic: Ancef 2,000 mg IV every 8 Hours Pre/Post Procedure I have personally reviewed the labs and results Test results Laboratory and Additional Data Reviewed: Labs: CBC 12/05/2019 07:58 WBC: 7.98 Hgb: 11.4 Hct: 36.3 Platelets: 228 Lymphocytes Abs: 0.52 CMP 12/05/2019 07:58 Glucose: 223 BUN: 19 Creatinine: 0.86 Sodium: 139 Potassium: 4.1 Total Protein: 6.4 Albumin: 2.4 Alk Phos: 75 AST: 20 ALT: 31 Total Bilirubin: 0.4 CRP 12/05/2019 07:58 85.3 Current Cultures: 12/02/2019 Right Foot Tissue Aerobic Culture: Normal Chalino After 48 Hours. Final. 12/02/2019 Right Foot Tissue AFB Culture: No Acid Fast Bacilli Seen. Preliminary. 12/02/2019 Right Foot Tissue Anaerobic Culture: No Anaerobic Growth at 2 Days. Final. 12/02/2019 Right Foot Tissue Fungus Culture: Fungal Culture in Progress. Preliminary. 12/01/2019 Blood Culture #1: No Growth After 5 Days. Final. 12/01/2019 Blood Culture #2: No Growth After 5 Days. Final. 11/30/2019 Right Foot Wound Aerobic Culture: Normal Chalino After 48 Hours. Final. 11/21/2019 Left Leg Wound Aerobic Culture: Normal Chalino After 48 Hours. Final. 11/20/2019 Right Foot Tissue Aerobic Culture: Moderate Growth Enterobacter cloacae complex, S=Youssef Sensitive. Final. 11/20/2019 Right Foot Tissue Anaerobic Culture: No Anaerobic Growth at 2 Days. Final. 11/20/2019 Right Foot Bone Aerobic Culture: Light Growth Enterobacter Cloacae Complex, S=Youssef Sensitive. Final. 11/20/2019 Right Foot Bone Anaerobic Culture: No Anaerobic Growth at 2 Days. Final. Pathology: 12/02/2019 A. Soft tissue, Right Foot, excision: Non-specific ulcer. Date: 12/05/2019 New labs/results as of last note Update from previous note Tmax: 98.8 Urine Output: 2900 Stool: not recorded Current Antibiotics: Rocephin 2 gm IV every 24 Hours Previous Antibiotic: Ancef 2,000 mg IV every 8 Hours Pre/Post Procedure I have personally reviewed the labs and results Test results Laboratory and Additional Data Reviewed: Labs: CBC 12/05/2019 07:58 WBC: 7.98 Hgb: 11.4 Hct: 36.3 Platelets: 228 Lymphocytes Abs: 0.52 CMP 12/05/2019 07:58 Glucose: 223 BUN: 19 Creatinine: 0.86 Sodium: 139 Potassium: 4.1 Total Protein: 6.4 Albumin: 2.4 Alk Phos: 75 AST: 20 ALT: 31 Total Bilirubin: 0.4 CRP 12/05/2019 07:58 85.3 Current Cultures: 12/02/2019 Right Foot Tissue Aerobic Culture: Normal Chalino After 48 Hours. Final. 12/02/2019 Right Foot Tissue AFB Culture: No Acid Fast Bacilli Seen. Preliminary. 12/02/2019 Right Foot Tissue Anaerobic Culture: No Anaerobic Growth at 2 Days. Final. 12/02/2019 Right Foot Tissue Fungus Culture: Fungal Culture in Progress. Preliminary. 12/01/2019 Blood Culture #1: No Growth After 48 Hours. Preliminary. 12/01/2019 Blood Culture #2: No Growth After 48 Hours. Preliminary. 11/30/2019 Right Foot Wound Aerobic Culture: Normal Chalino After 48 Hours. Final. 11/21/2019 Left Leg Wound Aerobic Culture: Normal Chalino After 48 Hours. Final. 11/20/2019 Right Foot Tissue Aerobic Culture: Moderate Growth Enterobacter cloacae complex, S=Youssef Sensitive. Final. 11/20/2019 Right Foot Tissue Anaerobic Culture: No Anaerobic Growth at 2 Days. Final. 11/20/2019 Right Foot Bone Aerobic Culture: Light Growth Enterobacter Cloacae Complex, S=Youssef Sensitive. Final. 11/20/2019 Right Foot Bone Anaerobic Culture: No Anaerobic Growth at 2 Days. Final. Current Antibiotics: Rocephin 2 gm IV every 24 Hours Previous Antibiotic: Ancef 2,000 mg IV every 8 Hours Pre/Post Procedure I have personally reviewed the labs and results Test results Laboratory and Additional Data Reviewed: Results from last 7 days Lab Units 12/01/19 0648 11/30/19 1245 11/29/19 0655 SODIUM mmol/L 140 140 142 POTASSIUM mmol/L 5.0 4.9 5.1 CHLORIDE mmol/L 106 105 107 BUN mg/dL 22 24 36* CREATININE mg/dL 0.98 0.94 1.12 GLUCOSE mg/dL 223* 127* 108* CALCIUM mg/dL 9.1 9.3 9.3 Results from last 7 days Lab Units 12/01/19 0635 11/30/19 1245 WBC K/mcL 8.56 8.72 HGB g/dL 11.2* 10.8* HCT % 35.6* 35.4* PLT K/mcL 232 243 Results from last 7 days Lab Units 11/30/19 1245 ALK PHOS U/L 67 BILIRUBIN TOTAL mg/dL 0.3 TOTAL PROTEIN g/dL 6.5 ALTR U/L 56 AST U/L 42 Current Cultures: 12/02/2019 Right Foot Tissue Aerobic Culture: Normal Chal[place] After 24 Hours. Preliminary. 12/02/2019 Right Foot Tissue AFB Culture: No Acid Fast Bacilli Seen. Preliminary. 12/01/2019 Blood Culture #1: No Growth After 48 Hours. Preliminary. 12/01/2019 Blood Culture #2: No Growth After 48 Hours. Preliminary. 11/30/2019 Right Foot Wound Aerobic Culture: Normal Chalino After 48 Hours. Final. 11/21/2019 Left Leg Wound Aerobic Culture: Normal Chalino After 48 Hours. Final. 11/20/2019 Right Foot Tissue Aerobic Culture: Moderate Growth Enterobacter cloacae complex, S=Youssef Sensitive. Final. 11/20/2019 Right Foot Tissue Anaerobic Culture: No Anaerobic Growth at 2 Days. Final. 11/20/2019 Right Foot Bone Aerobic Culture: Light Growth Enterobacter Cloacae Complex, S=Youssef Sensitive. Final. 11/20/2019 Right Foot Bone Anaerobic Culture: No Anaerobic Growth at 2 Days. Final. Recent Cultures: 05/30/2019 Right Foot Tissue Aerobic Culture: Normal Chalino After 48 Hours. Final. 05/30/2019 Right Foot Tissue Anaerobic Culture: No Anaerobic Growth at 2 Days. Final. 03/23/2019 Right Foot Wound Aerobic Culture: Heavy Growth Raoultella [place], R=Ampicillin, S=Remainder of panel. 03/09/2019 Right Foot Wound Aerobic Culture: Normal Chalino After 48 Hours. Final. 02/09/2019 Right Foot Wound Aerobic Culture: Normal Chalino After 48 Hours. Final. 01/19/2019 Right Toe Two Wound Aerobic Culture: Heavy Growth Enterobacter Cloacae Complex, S=Youssef Sensitive. Final. Radiology: Right Foot X-Ray 12/02/2019 Intraoperative fluoroscopy provided. Severe bony deformity of the foot as described. Please correlate with operative note. Chest X-Ray 11/23/2019 1. Right arm PICC line in place with tip in superior vena cava. 2. No acute pulmonary disease. 3. Cardiomegaly with evidence of prior open heart surgery. 4. No acute osseous abnormality Right Foot X-Ray 11/20/2019 IMPRESSION: Intraoperative fluoroscopy for localization during right foot and ankle reconstruction and fixation. Please see operative report for details. Left Ankle X-Ray Ordered 11/20/2019 Right Foot X-Ray 11/20/2019 FINDINGS: Two views of the right foot were obtained. There are advanced changes of Charcot arthropathy throughout the right midfoot which appears similar compared to prior examination. There are postsurgical changes of resection of the right 2nd toe proximal phalangeal head. IMPRESSION: 1. Advanced changes of Charcot arthropathy throughout the right midfoot which appear unchanged compared to prior examination. Chest AP/PA X-Ray 11/16/2019 1. No acute pulmonary disease. 2. Cardiomegaly, with evidence of prior open heart surgery. 3. Multilevel degenerative changes of the thoracic spine. MR Right Foot 05/19/2019 1. There is a superficial soft tissue ulcer again seen along the plantar aspect of the midfoot, butthere is no evidence of abscess or osteomyelitis in this region. 2. Stable appearance of the sequela of severe neuropathic arthropathy of the midfoot with collapse of the midfoot again seen resulting in a rocker bottom deformity. 3. A moderate amount of diffuse subcutaneous edema along the dorsum of the foot may be due to reactive edema or a cellulitis, but this is nonspecific. Right Foot X-Ray 04/28/2019 1. Soft tissue irregularity involving the plantar aspect of the foot likely representing the reported ulcer. No bony destruction to suggest osteomyelitis. 2. No evidence of radiopaque foreign body. 3. Stable deformity and degenerative changes involving the midfoot. Findings are consistent with Charcot joint. NM White Cell Scan Spot Limited 03/08/2017 FINDINGS: A focal area of intense abnormal white blood cell migration is noted central plantar aspect of the right foot corresponding to the area of the wound demonstrated radiographically. No other focus of white blood cell migration abnormality is evident within the right or left foot. IMPRESSION: Focal area of abnormal white blood cell migration at the plantar aspect central right foot may be at the wound itself or may be involving the bone with associated fracture as demonstrated radiographically. Anatomic detail is insufficient for differentiation between the two. Renal U/S 03/07/2017 IMPRESSION: Severe thickening of the urinary bladder wall. This could be due to outlet obstruction with hypertrophy of the wall. If there is no such history, this should be evaluated with cystoscopy. CVPS: Arterial Doppler: not on file Venous Doppler: not on file 2D Echo 11/23/2019 Moderate LV enlargement with LVH. Global systolic dysfunction with segmental features. LVEF 30% Elevated LV filling pressures RV is dilated with severe RV dysfunction Mild mitral annular calcification, mild thickening of the aortic valve without hemodynamically significant valvular disease There is a atrial level right to left shunt identified with saline contrast with free breathing andValsalva most likely via PFO LVEF unchanged from to previous echo from 2017 Surgeries: Please see above for surgical history Procedure: Right Foot I&D ADJUSTMENT EXTERNAL FIXATOR Date: 12/02/2019 Surgery: Alena Mora DPM Procedure: RIGHT FOOT RECONSTRUCTION WITH APPLICATION OF CIRCULAR STATIC EXTERNAL FIXATION Date: 11/20/2019 Surgeon: Alena Mora DPM Procedure: ARTHROPLASTY 2ND TOE RIGHT FOOT Date: 01/25/2019 Surgeon: Rosa M Robles DPM Pathology: not on file * Helena Sheldon CNP - 12/18/2019 11:35 AM EDT [facility] Medicine Inpatient Consult Follow-up Helena Sheldon CNP Patient: Dyllan Huertas Date of : 1960 (59 y.o.) PCP: Rohit Aguilar MD Referring Provider: Sinai Lopez* Consult: Alisa Singh MD: Hospitalist assistance with medical management ASSESSMENT/PLAN: Principal Problem: Osteomyelitis (HCC) Active Problems: 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) JAYDEN (obstructive sleep apnea) Mixed hyperlipidemia Benign prostatic hyperplasia with urinary retention Essential hypertension S/P foot surgery, right S/P foot surgery, right Assessment & Plan Dr. Mora podiatry consulted to manage wound. Extensive wound care is needed. Non wt bearing. Essential hypertension Assessment & Plan Monitor blood pressure per shift. Check kidney function. Continue coreg Benign prostatic hyperplasia with urinary retention Assessment & Plan Has been straight cathing at home. Follows with Dr. Izquierdo. Bladder training, remove schulte, bladder scan and straight cath. Pt has no bladder sensation Mixed hyperlipidemia Assessment & Plan Continue lipitor and fenofibrate. Uses crestor at home. Monitor liver function JAYDEN (obstructive sleep apnea) Assessment & Plan Encourage pt to wear cpap. Wear nasal cannula at 2L at night if he refuses Cpap 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) Assessment & Plan Consult endocrinology. DM has not been well controlled and the infection is making it worse. Monitor blood glucose ACHS, continue lantus, preprandial humalog, and sliding scale. Diabetic diet * Osteomyelitis (HCC) Assessment & Plan Consult ID and continue IV antibiotics. Non wt bearing on right foot. 12/07 Dr. Mora came and had nurse change leg dressing on his left foot with the external fixator. It took over an hour to clean and wrap each pin. Pt tolerated well. Compliant with therapy. Continues antibiotics 12/08 Afebrile, continues with antibiotic therapy DM being managed by endocrinology. Blood pressure is stable. Complaint with therapy 12/10 Glucose is becoming controlled. External fixator is intact No signs of infection Blood pressure is controlled New culture taken of wound due to some drainage. Dr. Andrey awad waiting for results 12/11 Blood glucose is controlled. Angelina Emanuel has changed antibiotic to Merepenem Pain is controlled. Constipation is resolved, metamucil has been started. Blood pressure is controlled. Afebrile 12/12 Making good progress with stand pivots. BP and HR stable. Has not had a BM today. But is taking metamucil daily, so he feels he can go tomorrow. Left leg wrapping of external fixator 12/13 Bladder training is continuing. Pt has been self cathing once at night for 4 years. He was previously able to void during the day. Will bladder train, start flomax and self cath, set up supplies upon discharge and follow up with DR Izquierdo, urologist. BP and HR stable Meropenem continues per ID Right foot dressing intact around external fixator Gaining strength in isela arms and left leg for transfers. 12/14 Continues bladder training. Small BM but feeling constipated BP and HR stable. Agreed to stay a few more days Continue merepenem 12/15 Gaining strength and balance to be able to manage at home to shift off of wheelchair. BP and HR stable. Dressing intact. 12/17 Plan for discharge in the am. Dr. Mora will follow pt in the wound clinic, for his right foot dressing. Pt will have home health. Will need follow up with urology. SUBJECTIVE: History Since Last Visit: denies pain Current Scheduled Meds: aspirin 162 mg Oral Daily atorvastatin 40 mg Oral Nightly calcium carbonate 1,000 mg Oral Daily carvediloL 12.5 mg Oral BID docusate sodium 100 mg Oral Daily fenofibrate 160 mg Oral Daily with breakfast gabapentin 300 mg Oral Q8H LESLEY insulin glargine 35 Units Subcutaneous BID lispro insulin 0-15 Units Subcutaneous at bedtime insulin lispro 0-30 Units Subcutaneous TID AC levothyroxine 112 mcg Oral Daily magnesium oxide 400 mg Oral Daily melatonin 10 mg Oral at bedtime meropenem 1,000 mg Intravenous Q12H metFORMIN 1,000 mg Oral BID with meals psyllium husk 1 packet Oral Daily tamsulosin 0.4 mg Oral After evening meal Review of Systems: All other systems reviewed and negative other than HPI OBJECTIVE: Physical Examination: Vital Signs: BP 136/65 (BP Location: Left arm, Patient Position: Lying) Pulse 78 Temp 97.4 F (36.3 C) (Oral) Resp 12 Ht 5' 11 Wt 116 kg (255 lb 11.7 oz) SpO2 96% BMI 35.67 kg/m Physical Exam General Appearance: Alert, well appearing, and in no acute distress. HEENT: Head - Normocephalic, atraumatic. Eyes - ALEKS bilaterally and EOMI. Ears - normal external appearance, hearing intact. Nose - normal, no erythema. Throat - mucous membranes moist, pharynx without lesions. Neck: Supple, trachea midline. Cardiovascular: S1, S2 normal. No murmurs, rubs, clicks or gallops appreciated. No pedal edema. Respiratory: Lungs clear to auscultation, no wheezes, rales or rhonchi heard. Abdomen: Soft, non-tender, normal bowel sounds, non-distended, no masses or organomegaly appreciated. Neurological: Limited movement in lower ext. Numbness from knee down. Musculoskeletal: Right foot s/p surgery, swollen. Left foot swollen from surgery history Skin: Normal coloration and turgor. No rashes. External fixator with large incision, on right foot Psych: Alert, oriented x 3. Normal mood and affect. Laboratory and Additional Data Reviewed: Results/Medications Reviewed 12/18/19 11:35 AM: Results from last 7 days Lab Units 12/12/19 0611 SODIUM mmol/L 140 POTASSIUM mmol/L 4.3 CHLORIDE mmol/L 106 BUN mg/dL 26* CREATININE mg/dL 0.89 GLUCOSE mg/dL 167* CALCIUM mg/dL 9.7 Results from last 7 days Lab Units 12/12/19 0611 WBC K/mcL 4.12* HGB g/dL 10.8* HCT % 35.6* PLT K/mcL 203 Results from last 7 days Lab Units 12/12/19 0611 ALK PHOS U/L 83 BILIRUBIN TOTAL mg/dL 0.3 TOTAL PROTEIN g/dL 6.7 ALTR U/L 52 AST U/L 35 CULTURES: Reviewed 12/18/19 11:35 AM Radiology/Imaging: Reviewed 12/18/19 11:35 AM * Eli Hassan, TERRITORY MANAGER - 12/18/2019 11:25 AM EDT Recreational Therapy Daily Note Patient attended individual session this date to promote increased activity tolerance, cognitive exercise, positive leisure participation, application of positive coping skills, positive social interaction. Patient participated with maximal effort. Patient contacted in room and motivated to propel w/c to TR tx area for engagement in newly learned card game of SkipBo. Patient very pleasant/talktive. He played at fast pace, benefiting from periodic cues to slow down and recognize plays or utilized better strategy. Tentative discharge scheduled for tomorrow. Patient spoke up and thanked this software writer for everything; he eagerly reported that he has contacted his sister and niece to request weekly game nights to continue to pursue Triominoes and SkipBo card game (both played here in [place]). Treatment time: [id number]; 40 min Exit protocol followed: Yes * Octavio Koch, SCRAP STRIPPER HAND - 12/18/2019 10:20 AM EDT PHYSICAL THERAPY Daily Progress Note Therapy Precautions Therapy Precautions Orthotic Devices: Yes Lower Extremity: External Fixator Weight Bearing Status: X RLE: Non Wt bearing LLE: Wt bearing as tolerated General Rehab Precautions: Fall risk Transfers Transfers Sit to Stand: Stand by assistance Stand Pivot Transfers: Stand by assistence Skilled Intervention: Pt completed a stand pivot transfer in and out of the car. Gait/Locomotion Gait / Locomotion Wheelchair Mobility: Modified independence Wheelchair distance: 450 Feet Exercise Exercises Seated Exercises: seated therex of neck, shoulders, trunk and all extrems. Home Living Home Living Type of Home: House Home Layout: One level, Able to live on main level with bedroom/bathroom, Ramped entrance Bathroom Shower/Tub: Tub/shower unit Bathroom Accessibility: Accessible via walker Home Equipment: Wheeled Walker, Wheelchair-manual(mayco rea, ) Additional Comments: Just recently was at [facility] for therapy Handoff given to primary RN. Exit Protocol Followed: Yes For complete objective data, detailed plan of care and patient education refer to: PT EVALUATION flow sheet, PT TREATMENT flow sheet, patient Plan of Care, Plan of Care progress note, and Patient Education. * Bhakti hSields, OT - 12/18/2019 8:17 AM EDT IP REHAB OCCUPATIONAL THERAPY DISCHARGE SUMMARY Discharge Destination: Home with Family Support. Home Health Therapies. Date of Discharge: 12/19/2019 Patient will discharge home at wheelchair level and is to complete sponge bathing and use BSC. Bathroom is not accessible. Patient in understanding and reports his sister will assist with emptying BSC at home. Skilled Therapy Needs After Discharge Are Skilled Therapy Services Needed After Discharge: Yes Intensity of Skilled Therapy: 2-3 days per week Anticipated Duration of Skilled Therapy: Duration 7 - 10 days DME Recommendation: Bedside commode, Sliding board DME Rationale: Equipment required to maintain weight bearing status per physician orders, Patient'scondition creates an increased risk of safety hazard without recommended equipment, Drop-arm commode - necessary to aid in transfer to commode, Commode - patient confined to single room. Patient requires bariatric drop-arm BSC due to increased hip width and need for lateral weight shifting for bothhygiene and seated clothing management (must maintain NWB status to the RLE). Rehab Potential: Good Therapy Precautions Orthotic Devices: Yes Lower Extremity: External Fixator, Right Weight Bearing Status: X RLE: Non Wt bearing LLE: Partial Wt bearing General Rehab Precautions: Fall risk Cognition Overall Cognitive Status: Within Functional Limits Arousal/Alertness: Appropriate responses to stimuli Orientation Level: Oriented X4 Executive functioning: WFL Safety Judgment: Good awareness of safety precautions Problem Solving: Able to problem solve independently Attention: Attends to quiet environment Hearing Status: WFL Social Interaction: WFL ADL/IADL Feeding: Independent Grooming : Modified independence (From w/c level) UE Bathing : Modified independence (Seated) LE Bathing : Modified independence (Seated) UE Dressing: Independent LE Dressing: Modified independence (Bed level, lateral weight shifting) Toileting : Modified independence(simulated) Skilled Intervention: Pt demonstrates Mod Ind for ADLs, demonstrates good awareness of safety for seated tasks. Pt with only minimal difficulty in threading pants/underwear over the R external fixator, however completes with Mod Ind by transferring to supine position for management over hips. Educated patient to thread the RLE first for increased ease. Understanding verbalized. Pt with independent management of schulte, including threading through LB clothing items. Bathing tasks completed from seated position, weight shifting with Mod Ind for buttocks region. Toileting is simulated with Mod Ind for weight shifting with clothing/hygiene needs. Pt requires additional width on bariatric BSC for weight shifting and to accommodate wide hips. Bed Mobility Rolling: Modified independence Supine to Sit: Modified independence Sit to Supine: Modified [place] Functional Transfers Bed to Chair Transfers: Modified [place](lateral transfer) Toilet Transfers: Modified [place](lateral transfer to BSC) Shower Transfers: Modified independence(lateral transfer to shower bench) Skilled Intervention: Pt demonstrates Mod Ind for lateral transfers to various surface heights, independent in removal/addition of leg rest, arm rest and schulte management with transfers. Pt adheres to NWB status and completes transfers to both the R and L sides. Home Living Type of Home: House Home Layout: One level, Able to live on main level with bedroom/bathroom, Ramped entrance Bathroom Shower/Tub: Tub/shower unit Bathroom Toilet: Standard Bathroom Equipment: Tub transfer bench, Hand-held shower Bathroom Accessibility: Accessible via walker Home Equipment: Wheeled Walker, Wheelchair-manual(mayco rea, ) Additional Comments: Just recently was at [facility] for therapy Prior Level of Function Level of [place]: Independent with ADLs and functional transfers, Independent with homemaking with ambulation Lives With: Alone Receives Help From: Family ADL Assistance: Independent Homemaking Assistance: Independent Vocational: On disability Leisure: (cooking, shopping sports/electronics, target shoot, read, ) Comments: likes to build models, pt stayed in w/c most of the day, walked short distances at home, but was able to walk around stores ok though LTGs: Problem: Self-care Deficit Goal: OT- STG toileting Description: OT - Patient will complete toileting with minimal assist for clothing management whileseated with AD/AE if needed to improve self care function. Outcome: Met Note: Mod Ind - per patient report and simulated completion Goal: OT- LTG UB dressing Description: OT - Patient will complete UB dressing with modified independence to improve self carefunction. Outcome: Met Goal: OT- LTG LB dressing Description: OT - Patient will complete LB dressing with modified independence while seated to improve self care function. Outcome: Met Goal: OT- LTG toileting Description: OT - Patient will complete toileting with supervision while seated for clothing management with AD/AE if needed to improve self care function. Outcome: Met Note: Mod Ind Goal: OT- LTG meal preparation Description: OT - Patient will complete simple meal preparation from w/c level with modified independence including item retreival using AE while adhering to NWB precautions of RLE to improve self care function. Outcome: Met Goal: OT- LTG precautions Description: OT - Patient will demonstrate NWB of RLE precaution management independently to improve safe and appropriate ADL/IADL management. Outcome: Met Goal: OT- LTG Self-Care Other Description: OT- Patient will participate in caregiver/family training as needed to enhance a safe return to home environment by time of discharge, including education on fall prevention, HEP, and adaptive equipment needs/DME. Outcome: Met Note: Family did not attend therapy sessions for training. However, patient demonstrates Mod Ind for self care needs and functional transfers. Issued HEP and discussed DME needs for home. Problem: Mobility - Impaired Goal: OT- LTG toilet transfer Description: OT - Patient will complete toilet transfer with slide board to BSC with modified independence needed in preparation for ADL's. Outcome: Met Note: Lateral transfer without slide board Problem: Impaired Strength Goal: OT- LTG Strength Other Description: OT- Patient will tolerate 15- 20 minutes of BUE strengthening, demonstrating independence with HEP by time of discharge, in order to improve strength necessary for functional transfers in preparation for ADLs Outcome: Met Problem: Mobility - Impaired Goal: OT- LTG Mobility Other Description: OT- Patient will complete stand pivot transfer with AD while adhering to NWB precautions of RLE with contact guard assist to improve independence for ADLs. Outcome: Partially Met Note: Mod Ind for lateral transfer. Did not complete stand pivot transfers with WW due to physician's orders to avoid standing on LLE as much as possible. Problem: Mobility - Impaired Goal: OT- STG toilet transfer Description: OT - Patient will complete toilet transfer with slide board to BSC with contact guard assist if needed in preparation for ADL's. Outcome: Completed Note: Mod Ind for lateral transfer Exit Protocol Followed: Yes For complete objective data, detailed plan of care and patient education refer to: OT EVALUATION flow sheet, OT TREATMENT flow sheet, patient Plan of Care, Plan of Care progress note, and Patient Education. * Helena Glass LPN - 12/18/2019 7:43 AM EDT Date: 12/18/2019 No new labs/results as of last note Update from previous note Tmax: 98.1 Urine Output: 3950 Stool: not recorded Current Antibiotics: Merrem 1,000 mg IV every 12 Hours Previous Antibiotic: Rocephin 2 gm IV every 24 Hours Ancef 2,000 mg IV every 8 Hours Pre/Post Procedure I have personally reviewed the labs and results Test results Laboratory and Additional Data Reviewed: Current Cultures: 12/10/2019 Right Foot Wound Aerobic Culture: Normal Chalino After 48 Hours. Final 12/10/2019 Right foot wound, anaerobic culture: No anaerobic growth at 2 days. Final 12/08/2019 Urine Aerobic Culture: No Growth (<1,000 CFU/mL). Final. 12/07/2019 Urine Aerobic Culture on arrival to Nursing Rehab Unit: No Growth (<1,000 CFU/mL). Final. 12/02/2019 Right Foot Tissue Aerobic Culture: Normal Chalino After 48 Hours. Final. 12/02/2019 Right Foot Tissue AFB Culture: No Acid Fast Bacilli Seen. Preliminary. 12/02/2019 Right Foot Tissue Anaerobic Culture: No Anaerobic Growth at 2 Days. Final. 12/02/2019 Right Foot Tissue Fungus Culture: Fungal Culture in Progress. Preliminary. 12/01/2019 Blood Culture #1: No Growth After 5 Days. Final. 12/01/2019 Blood Culture #2: No Growth After 5 Days. Final. 11/30/2019 Right Foot Wound Aerobic Culture: Normal Chalino After 48 Hours. Final. 11/21/2019 Left Leg Wound Aerobic Culture: Normal Chalino After 48 Hours. Final. 11/20/2019 Right Foot Tissue Aerobic Culture: Moderate Growth Enterobacter cloacae complex, S=Youssef Sensitive. Final. 11/20/2019 Right Foot Tissue Anaerobic Culture: No Anaerobic Growth at 2 Days. Final. 11/20/2019 Right Foot Bone Aerobic Culture: Light Growth Enterobacter Cloacae Complex, S=Youssef Sensitive. Final. 11/20/2019 Right Foot Bone Anaerobic Culture: No Anaerobic Growth at 2 Days. Final * Helena Sheldon CNP - 12/16/2019 9:55 AM EDT [facility] Medicine Inpatient Consult Follow-up Helena Sheldon, JUDD Patient: Dyllan Huertas Date of : 1960 (59 y.o.) PCP: Rohit Aguilar MD Referring Provider: Sinai Lopez* Consult: Alisa Singh MD: Hospitalist assistance with medical management ASSESSMENT/PLAN: Principal Problem: Osteomyelitis (HCC) Active Problems: 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) JAYDEN (obstructive sleep apnea) Mixed hyperlipidemia Benign prostatic hyperplasia with urinary retention Essential hypertension S/P foot surgery, right S/P foot surgery, right Assessment & Plan Dr. Mora podiatry consulted to manage wound. Extensive wound care is needed. Non wt bearing. Essential hypertension Assessment & Plan Monitor blood pressure per shift. Check kidney function. Continue coreg Benign prostatic hyperplasia with urinary retention Assessment & Plan Has been straight cathing at home. Follows with Dr. Izquierdo. Bladder training, remove schulte, bladder scan and straight cath. Pt has no bladder sensation Mixed hyperlipidemia Assessment & Plan Continue lipitor and fenofibrate. Uses crestor at home. Monitor liver function JAYDEN (obstructive sleep apnea) Assessment & Plan Encourage pt to wear cpap. Wear nasal cannula at 2L at night if he refuses Cpap 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) Assessment & Plan Consult endocrinology. DM has not been well controlled and the infection is making it worse. Monitor blood glucose ACHS, continue lantus, preprandial humalog, and sliding scale. Diabetic diet * Osteomyelitis (HCC) Assessment & Plan Consult ID and continue IV antibiotics. Non wt bearing on right foot. 12/07 Dr. Mora came and had nurse change leg dressing on his left foot with the external fixator. It took over an hour to clean and wrap each pin. Pt tolerated well. Compliant with therapy. Continues antibiotics 12/08 Afebrile, continues with antibiotic therapy DM being managed by endocrinology. Blood pressure is stable. Complaint with therapy 12/10 Glucose is becoming controlled. External fixator is intact No signs of infection Blood pressure is controlled New culture taken of wound due to some drainage. Dr. Andrey awad waiting for results 12/11 Blood glucose is controlled. Angelina Emanuel has changed antibiotic to Merepenem Pain is controlled. Constipation is resolved, metamucil has been started. Blood pressure is controlled. Afebrile 12/12 Making good progress with stand pivots. BP and HR stable. Has not had a BM today. But is taking metamucil daily, so he feels he can go tomorrow. Left leg wrapping of external fixator 12/13 Bladder training is continuing. Pt has been self cathing once at night for 4 years. He was previously able to void during the day. Will bladder train, start flomax and self cath, set up supplies upon discharge and follow up with DR Izquierdo, urologist. BP and HR stable Meropenem continues per ID Right foot dressing intact around external fixator Gaining strength in isela arms and left leg for transfers. 12/14 Continues bladder training. Small BM but feeling constipated BP and HR stable. Agreed to stay a few more days Continue merepenem 12/15 Gaining strength and balance to be able to manage at home to shift off of wheelchair. BP and HR stable. Dressing intact. SUBJECTIVE: History Since Last Visit: denies pain Current Scheduled Meds: aspirin 162 mg Oral Daily atorvastatin 40 mg Oral Nightly calcium carbonate 1,000 mg Oral Daily carvediloL 12.5 mg Oral BID docusate sodium 100 mg Oral Daily fenofibrate 160 mg Oral Daily with breakfast gabapentin 300 mg Oral Q8H LESLEY insulin glargine 35 Units Subcutaneous BID lispro insulin 0-15 Units Subcutaneous at bedtime insulin lispro 0-30 Units Subcutaneous TID AC levothyroxine 112 mcg Oral Daily magnesium oxide 400 mg Oral Daily melatonin 10 mg Oral at bedtime meropenem 1,000 mg Intravenous Q12H metFORMIN 1,000 mg Oral BID with meals psyllium husk 1 packet Oral Daily tamsulosin 0.4 mg Oral After evening meal Review of Systems: All other systems reviewed and negative other than HPI OBJECTIVE: Physical Examination: Vital Signs: BP 130/75 Pulse 90 Temp 99 F (37.2 C) (Oral) Resp 16 Ht 5' 11 Wt 118 kg (260 lb 2.3 oz) SpO2 96% BMI 36.28 kg/m Physical Exam General Appearance: Alert, well appearing, and in no acute distress. HEENT: Head - Normocephalic, atraumatic. Eyes - ALEKS bilaterally and EOMI. Ears - normal external appearance, hearing intact. Nose - normal, no erythema. Throat - mucous membranes moist, pharynx without lesions. Neck: Supple, trachea midline. Cardiovascular: S1, S2 normal. No murmurs, rubs, clicks or gallops appreciated. No pedal edema. Respiratory: Lungs clear to auscultation, no wheezes, rales or rhonchi heard. Abdomen: Soft, non-tender, normal bowel sounds, non-distended, no masses or organomegaly appreciated. Neurological: Limited movement in lower ext. Numbness from knee down. Musculoskeletal: Right foot s/p surgery, swollen. Left foot swollen from surgery history Skin: Normal coloration and turgor. No rashes. External fixator with large incision, on right foot Psych: Alert, oriented x 3. Normal mood and affect. Laboratory and Additional Data Reviewed: Results/Medications Reviewed 12/16/19 9:55 AM: Results from last 7 days Lab Units 12/12/19 0611 SODIUM mmol/L 140 POTASSIUM mmol/L 4.3 CHLORIDE mmol/L 106 BUN mg/dL 26* CREATININE mg/dL 0.89 GLUCOSE mg/dL 167* CALCIUM mg/dL 9.7 Results from last 7 days Lab Units 12/12/19 0611 WBC K/mcL 4.12* HGB g/dL 10.8* HCT % 35.6* PLT K/mcL 203 Results from last 7 days Lab Units 12/12/19 0611 ALK PHOS U/L 83 BILIRUBIN TOTAL mg/dL 0.3 TOTAL PROTEIN g/dL 6.7 ALTR U/L 52 AST U/L 35 CULTURES: Reviewed 12/16/19 9:55 AM Radiology/Imaging: Reviewed 12/16/19 9:55 AM * Sinai Lopez MD - 12/15/2019 6:53 PM EDT Physical Medicine & Rehabilitation Inpatient Progress 12/17/2019 Sinai Lopez MD [facility] Nursing Rehab Patient: Dyllan Huertas Date of : 1960 (59 y.o.) PCP: Rohit Aguilar MD Date of Admission: 12/06/2019 ASSESSMENT/PLAN: Rehabilitation Diagnosis: Rehab Impairement Code (JOSE): Ortho (12/05/19 0700) Ortho IGC: 08.9 - Other Orthopaedic (12/05/19 07) Discharge Barriers: Mobility, ADL, Self Care Impairment: Intensive PT/OT Decreased Endurance: Intensive PT/OT , patient requires AFO on left lower limb discussed with patient and PT Skin: Turn every 2 hours, monitor for skin breakdown per rehabilitation nursing, dressing changes per podiatry Nutritional Status: Nutrition Consult Pulmonary Rehabilitation: Encourage incentives spirometry and deep breathing exercises Neurogenic Bladder: remove schulte monitor left lower limb charco ankle -obtain Xray -screw broken in left lower limb - per podiatry no change in acitivty restrictions Mixed hyperlipidemia Assessment & Plan Statin. 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 Consult endocrine * Osteomyelitis (HCC) Assessment & Plan ID following, podiatry following. See rehab plan. Therapy Updates: patient has progressed to CGA with toilet transfer Attestation: Considering all of the information above, it is my best judgment that this patient continues to require an intensive rehabilitation multidisciplinary program as previously described due to the necessity of medical management, rehabilitation needs, and complexity of nursing care under the supervision of a rehabilitation physician (patient requires at least 3 rehab physician visits per week). It can be reasonably expected that patient will participate in and benefit from a multidisciplinary team approach to maximize functional independence that is best served with acute inpatient rehabilitationas opposed to lower level of care. The teams needed are: Rehabilitation Nursing for medication management, bowel/bladder care, skin care, and respiratory care Physical Therapy for strengthening, endurance, mobility, gait and balance training, ROM, ADL's, andpatient/family training Occupational Therapy for strengthening, endurance, mobility, gait and balance training, ROM, ADL's,and patient/family training Rehabilitation Psychology for coping Therapeutic Recreation for community re-entry Social Work for integrated social support and discharge planning SUBJECTIVE: Date of Admission: 12/06/2019 Informant(s): Patient History of Present Illness: Patient reports that he has been performing better with stand pivots. He reprots that he will be mostly home alone at discharge. Review of Systems: All pertinent positives and negative in HPI/Interval History. All others negative. Allergies: Patient has no known allergies. Current HOSPITAL Medications: Current Facility-Administered Medications Medication Dose Route Frequency Provider Last Rate Last Dose acetaminophen (TYLENOL) tablet 650 mg 650 mg Oral Q4H PRN Helena Sheldon CNP 650 mg at 12/09/19 2142 albuterol (PROVENTIL) 2.5 mg /3 mL (0.083 %) nebulizer solution 2.5 mg 2.5 mg Inhalation Q2H PRN Helena Sheldon CNP aspirin EC tablet 162 mg 162 mg Oral Daily Helena Sheldon CNP 162 mg at 12/17/19 0855 atorvastatin (LIPITOR) tablet 40 mg 40 mg Oral Nightly Helena Sheldon CNP 40 mg at 12/16/19 2117 bisacodyL (DULCOLAX) suppository 10 mg 10 mg Rectal Daily PRN Helena Sheldon CNP 10 mg at 12/08/19 2242 calcium carbonate (TUMS) chewable tablet 1,000 mg 1,000 mg Oral Daily Helena Sheldon CNP 1,000mg at 12/17/19 0856 carvediloL (COREG) tablet 12.5 mg 12.5 mg Oral BID Helena Sheldon CNP 12.5 mg at 12/17/19 0855 docusate sodium (COLACE) capsule 100 mg 100 mg Oral Daily Helena Sheldon DE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 100 mg at 12/17/19 0856 docusate sodium (COLACE) capsule 100 mg 100 mg Oral BID PRN Helena Sheldon CNP 100 mg at 12/17/19 1642 fenofibrate tablet 160 mg 160 mg Oral Daily with breakfast Helena Sheldon CNP 160 mg at 12/17/19 0856 gabapentin (NEURONTIN) capsule 300 mg 300 mg Oral Q8H LESLEY Helena Sheldon DE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 300 mg at 12/17/19 1641 insulin glargine (LANTUS) injection 35 Units 35 Units Subcutaneous BID Andrés Andre CNP 35 Units at 12/17/19 0856 insulin lispro (HumaLOG) injection 0-15 Units 0-15 Units Subcutaneous at bedtime Helena Sheldon CNP 0 Units at 12/14/19 2118 insulin lispro (HumaLOG) injection 0-30 Units 0-30 Units Subcutaneous TID AC Sera Bowden MD12 Units at 12/17/19 1649 levothyroxine (SYNTHROID, LEVOTHROID) tablet 112 mcg 112 mcg Oral Daily Helena Sheldon CNP 112mcg at 12/17/19 0531 magnesium oxide (MAG-OX) tablet 400 mg 400 mg Oral Daily Helena Sheldon CNP 400 mg at 12/17/200755 melatonin Tab 10 mg 10 mg Oral at bedtime Helena Sheldon CNP 10 mg at 12/16/197 meropenem (MERREM) 1000 mg in sodium chloride (NS) 0.9% 50 mL (premix) 1,000 mg Intravenous Q12H Maria Isabel Awad MD Stopped at 12/17/19 1755 metFORMIN (GLUCOPHAGE) tablet 1,000 mg 1,000 mg Oral BID with meals Helena Sheldon CNP 1,000 mg at 12/17/19 1642 naloxone (NARCAN) injection 0.1 mg 0.1 mg Intravenous PRN Helena Sheldon CNP And naloxone (NARCAN) injection 0.4 mg 0.4 mg Intravenous PRN Helena Sheldon CNP nitroGLYCERIN (NITROSTAT) SL tablet 0.4 mg 0.4 mg Sublingual Q5 Min PRN Helena Sheldon CNP ondansetron (ZOFRAN-ODT) disintegrating tablet 4 mg 4 mg Oral Q6H PRN Helena Sheldon CNP psyllium (METAMUCIL) powder 1 packet 1 packet Oral Daily Kyung Doran [facility],Pharm[facility] 1 packet at 12/17/19 0856 senna (SENOKOT) tablet 8.6 mg 1 tablet Oral BID PRN Helena Sheldon CNP sodium phosphates (FLEETS ADULT) 19-7 gram/118 mL enema 1 each 1 each Rectal Daily PRN Helena Jaimes CNP tamsulosin (FLOMAX) 24 hr capsule 0.4 mg 0.4 mg Oral After evening meal Helena Sheldon CNP 0.4mg at 12/17/19 1642 traZODone (DESYREL) tablet 50 mg 50 mg Oral Nightly PRN Helena Sheldon CNP OBJECTIVE: Physical Examination: BP 109/69 Pulse 82 Temp 98.1 F (36.7 C) (Oral) Resp 14 Ht 5' 11 Wt 116 kg (255 lb 11.7 oz) SpO2 97% BMI 35.67 kg/m GENERAL: General Appearance: In no apparent distress, well nourished HEENT: Normocephalic, atraumatic, neck supple, EOMI, PER Respiratory: On room air, no respiratory distress Cardiovascular: Peripheral pulses palpable, 2+ edema b/l Abdomen: Nontender, nondistended Musculoskeletal: left charcot ankle; s/p right ex-fix and debridement with wound closure; decreasedPROM of left ankle dorsiflexion and plantar flexion. Skin: ZECHARIAH wraps on lower limbs, right lower limb dressing in tact. Psychiatric: Normal mood and affect, appropriate insight and judgement CRANIAL NERVES: II, III: Pupils: PER III, IV, : Eye Movements: Normal (EOMI, No ptosis, No nystagmus) V - Facial Sensation: Normal VII: Face Symmetry & Strength: Normal VIII Hearing: Normal IX, X Palate:: Normal XI - Shoulder Shrug: Normal XII - Tongue Protrusion: Normal GAIT: Unable to walk due to no assistance to safely evaluate COORDINATION & GROSS MOTOR: Abnormal Movements: None Tone: Normal MOTOR - MUSCLE STRENGTH: Right Muscle Strength Left 5 Shoulder Abduction 5 5 Elbow Flexion 5 5 Elbow Extension 5 5 Wrist Extension 5 5 Finger Abduction 5 5 Hip Flexion 5 5 Knee Extension 5 EDDI Knee Flexion 5 EDDI Dorsiflexion 4 EDDI Plantar Flexion 4 MOTOR MARTINO: 5 Normal Power 4 Movement against moderate resistance over a full range of motion 3 Movement against gravity over almost full range of motion 2 Movement with gravity eliminated over almost full range of motion 1 Trace Movement (flicker of contraction visible or palpable) 0 No Movement (no contraction visible or palpable) EDDI Unable to Assess SENSATION: Light Touch: impaired Position Sense: impaired Lab Results Component Value Date ALBUMIN 2.5 (L) 12/12/2019 ALT 52 12/12/2019 AST 35 12/12/2019 BUN 26 (H) 12/12/2019 CALCIUM 9.7 12/12/2019 CL 106 12/12/2019 CHOL 115 11/27/2019 CREATININE 0.89 12/12/2019 GLUCOSE 167 (H) 12/12/2019 HDL 28 (L) 11/27/2019 HCT 35.6 (L) 12/12/2019 HGB 10.8 (L) 12/12/2019 HGBA1C 8.8 (H) 11/27/2019 MG 2.1 11/24/2019 PLT 203 12/12/2019 K 4.3 12/12/2019 NA 140 12/12/2019 TRIG 177 (H) 11/27/2019 WBC 4.12 (L) 12/12/2019 * Jian Maravilla, SCRAP STRIPPER HAND - 12/15/2019 3:41 PM EDT GROUP THERAPY Balance Balance Skilled Intervention: Pt performs seated balance activity with group to improve dynamic sitting balance, and simulate mobility in a community setting. Exercise Exercises Skilled Intervention: Pt performs LE, UE, trunk, and neck exercises with group to improve functional activity tolerance. Pt limited with some R LE exercises due to external fixator. Exit Protocol Followed: Yes For complete objective data, detailed plan of care and patient education refer to: PT EVALUATION flow sheet, PT TREATMENT flow sheet, patient Plan of Care, Plan of Care progress note, and Patient Education. * Shavon Vogel RN - 12/15/2019 3:34 PM EDT Spoke with pt at bedside about d/c plan, per pt preference will make referral to [facility] for skilled services , list offered to select [facility], pt deferred. Pt states his ISELA just got him a new w/c from someone he new. He reports he will need a BSC at [facility] . Will discuss with OT. Pt would like to get his HME from [facility] per pt preference. Discussed need for home IV at home, pt states he thinks he can learn to do, his sister & niece will also be available to teach. * Eli Hassan, TERRITORY MANAGER - 12/15/2019 1:10 PM EDT Recreational Therapy Daily Note Patient attended individual session this date to promote increased activity tolerance, cognitive exercise, positive leisure participation, application of positive coping skills, positive social interaction. Patient participated with maximal effort. Patient requested leisure option of practicing theMobileSpand game he was recently introduced to by this software writer, Robert. He played eagerly, demonstrating recall of the game. He benefited from periodic cues for improved strategy. Affect very pleasant. Patient talkative. He shared a lot about his library and extensive book collections, commenting he's probably spent at least $100,000 over the years on books. Continue with TR treatment goals as stated in TR assessment. Treatment time: 6986-3220; 60 min Exit protocol followed: Exception; pt propelled w/c independently toward room. * DarshanjigneshstuNicholas villagomezPATI - 12/15/2019 12:17 PM EDT OCCUPATIONAL THERAPY Daily Progress Note Therapy Precautions Orthotic Devices: Yes Lower Extremity: External Fixator Weight Bearing Status: X RLE: Non Wt bearing LLE: Wt bearing as tolerated General Rehab Precautions: Fall risk Cognition Overall Cognitive Status: Within Functional Limits Arousal/Alertness: Appropriate responses to stimuli Orientation Level: Oriented X4 Executive functioning: WFL Safety Judgment: Decreased awareness of need for assistance Problem Solving: Assistance required to identify errors made Attention: Attends to distracted environment Hearing Status: WFL Social Interaction: WFL Comments: Pt. very cooperative throughout session. Skilled Intervention: Pt. followed all multi-step commands throughout session. ADL/IADL Skilled Intervention: Pt. denied needs to toilet, however agreeable to a toilet transfer. Functional Transfers Toilet Transfers: Contact Guard, Additional time, Grab bars, Adaptive equipment(BSC) Skilled Intervention: Toilet transfer: collaboration with pt. about transfering from W/C to BSC pt.voiced he will not use slide board due to sliding noted when practiced previously. Pt. completed lateral transfer with CGA, with good understanding of NWB'ing. Pt. was able to remove W/C armrest and BSC independently. Exercise Seated Exercises: Pt. sat at W/C level to participate in ball toss with use of dowel tommy with 2# weight to increase UE strength for ease with functional transfers. Pt. tolerated exericses well. Interventions Skilled Intervention: Pt. sat at W/C level to complete zoomball activity to increase B UE coordination, strength and sustained activity tolerance in shoulder abduction/adduction, and shoulder flexion/extension for 10 minutes with minimal short rest breaks in between due to fatigue. Pt. demonstratedgood sustained activity tolerance to increase ADL performance. Handoff given to primary RN. Exit Protocol Followed: Yes For complete objective data, detailed plan of care and patient education refer to: OT EVALUATION flow sheet, OT TREATMENT flow sheet, patient Plan of Care, Plan of Care progress note, and Patient Education. * Maria Isabel Awad MD - 12/15/2019 10:45 AM EDT 12/04/2019 Patient Name: Dyllan Huertas Admit Date: MR #: [id number] : 1960 Physicians: Rohit Aguilar MD (Family); No ref. provider found (Referring) Assessment and Plan: Impression Impression Right foot ulcer status post surgical intervention Severe Charcot deformity status post surgical intervention Enterobacter cloaca infection and gram-negative infection see cultures below RaullTela which is a gram-negative Acute osteomyelitis bone culture on 11/20/2019+ for the same pathogen that was present in January 2019is Enterobacter cloaca pansensitive RAJINDER none on chart 11/24/2019 Osteomyelitis as bone culture is positive from 11/20/2019 for Enterobacter cloaca 11/30/2019 New drainage from the pin site Elevated sed rate Elevated CRP Osteomyelitis right foot 12/01/2019 Osteomyelitis right foot Delayed healing of the plantar foot postop wound Cellulitis of the foot 12/04/2019 Status post surgical intervention with incision and drainage by Dr. Mora on 12/02/2019 cultures now with normal chalino AFB and fungus negative 12/05/2019 Sed rate 85 CRP 85 Per rehab physician there is a risk for the left ankle issues especially with diabetic neuropathy in the left foot and he has had right foot surgery 12/06/2019 OR cultures negative elevated CRP could be just postop We will continue IV antibiotics as planned till January 01 Rocephin 2 g every 24 hours 12/11/2019 Right foot wound with some maceration drainage 12/12/2019 CRP improving Plan 12/14/2019 and 12/15/2019 Continue IV meropenem till January 01 if he can manage to do that Await a picture by podiatry upon dressing change today I have discussed with podiatry Will plan for CBC CMP sed rate CRP next week 12/12/2019 Patient tolerating the meropenem Will await Dr. Mora to check the dressing on the wound at her next rounds Discontinue Rocephin Start meropenem 1 g IV every 12 for the Enterobacter and the other gram-negative that he had seen in the cultures especially with the extensive surgery that was done and he had some drainage on the weekend Continue IV antibiotics till January 01 CBC CMP sed rate CRP Will discuss with Dr. Lopez and Dr. Mora 12/08/2019 Rocephin continued till January 01 Urinary retention to be evaluated by Dr. Lopez Will await for Dr. Mora to do the dressings 12/07/2019 Rocephin 2 g IV 24 hours till January 01 Discontinue Schulte catheter CBC CMP sed rate CRP on Wednesday12/06/2019 Rocephin 2 g to 24 hours till January 01 CBC CMP sed rate CRP periodically Transfer to rehab he has been accepted Will follow the patient in rehab with Dr. Lopez and Dr. Mora 12/05/2019 Rocephin 2 g IV 24 hours continue till January 01 because of the second surgery Elevated sed rate CRP will be followed Await transfer to rehab if approved and bed available 12/04/2019 Rocephin 2 g IV every 24 hours CBC CMP sed rate CRP Rehab referral with Dr. Lopez here if possible We will discuss with podiatry I have discussed with hospitalist OR cultures normal chalino negative AFB and fungus Blood cultures negative so far 12/01/2019 Continue Rocephin till further cultures available CBC CMP sed rate CRP Blood cultures x2 half an hour apart He did bleed well even in the wound clinic yesterday at some point will order arterial Dopplers I have discussed with podiatry at length 11/30/2019 Culture the pin site that is bleeding and draining Follow-up CBC Liver function test Rocephin 2 g IV every 24 hours continue till December 18 May need to go up to additional 2 weeks afterMar 17 which will be January 01 we will decide based on lab results and clinical response If the culture of the pin site shows any additional pathogens may need to readmit for additional IVantibiotics and streamlining treatment Revisit 1 week both I have discussed with podiatry Chief Complaint/Reason for Visit: I am seeing this patient at the request of Dr. Boogie Phan MD. I have reviewed the current hospital record, available laboratory, cardiology and imaging studies as well as available out patient records. History of Present Illness: Admission H&P by Boogie Phan MD on 11/30/2019: Dyllan Huertas is a 59 y.o. male presenting from home with h/o diabetes on disability since 2014 related to a Charcot foot and diabetes developed an ulcer in the beginning of 2018 was being followed by Dr. Robles at the office we have cultures from last year in January with Enterobacter and since then culture with gram-negative bacteria also was seen by Dr. Mora was found to have severe Charcot a corrective surgery was done with placement of an external fixator on 11/20. Today at wound clinic follow up was found to have increased drainage from one of the pin sites, being admitted for continued IV ATB and possible OR/ exploration in am. Exam: Tmax: 99 Urine Output: 2000 Stool: not recorded PACU Vitals 12/15/19 0654 BP: 116/71 Pulse: 80 Resp: 12 Temp: 98.7 F (37.1 C) SpO2: 91% Allergies: no known allergies. Current Facility-Administered Medications: acetaminophen (TYLENOL) tablet 650 mg, 650 mg, Oral, Q4H PRN, Helena Sheldon CNP, 650 mg at 12/09/19 214 albuterol (PROVENTIL) 2.5 mg /3 mL (0.083 %) nebulizer solution 2.5 mg, 2.5 mg, Inhalation, Q2H PRN, Helena Sheldon CNP aspirin EC tablet 162 mg, 162 mg, Oral, Daily, Helena Sheldon CNP, 162 mg at 12/15/19821 atorvastatin (LIPITOR) tablet 40 mg, 40 mg, Oral, Nightly, Helena Sheldon CNP, 40 mg at 12/14/192116 bisacodyL (DULCOLAX) suppository 10 mg, 10 mg, Rectal, Daily PRN, Helena Sheldon CNP, 10 mg at12/08/19 224 calcium carbonate (TUMS) chewable tablet 1,000 mg, 1,000 mg, Oral, Daily, Helena Sheldon CNP, 1,000 mg at 12/15/19821 carvediloL (COREG) tablet 12.5 mg, 12.5 mg, Oral, BID, Helena Sheldon CNP, 12.5 mg at docusate sodium (COLACE) capsule 100 mg, 100 mg, Oral, Daily, Helena Sheldon CNP, 100 mg at 12/15/19 08 docusate sodium (COLACE) capsule 100 mg, 100 mg, Oral, BID PRN, Helena Sheldon CNP, 100 mg at 12/13/19 171 fenofibrate tablet 160 mg, 160 mg, Oral, Daily with breakfast, Helena Sheldon CNP, 160 mg at 12/15/19821 gabapentin (NEURONTIN) capsule 300 mg, 300 mg, Oral, Q8H LESLEY, Helena Sheldon CNP, 300 mg at 12/15/1916 insulin glargine (LANTUS) injection 35 Units, 35 Units, Subcutaneous, BID, Andrés Andre CNP, 35 Units at 12/15/19821 insulin lispro (HumaLOG) injection 0-15 Units, 0-15 Units, Subcutaneous, at bedtime, Helena Sheldon CNP, 0 Units at 12/14/192117 insulin lispro (HumaLOG) injection 0-30 Units, 0-30 Units, Subcutaneous, TID AC, Sera Bowden MD, 12 Units at 12/15/19826 levothyroxine (SYNTHROID, LEVOTHROID) tablet 112 mcg, 112 mcg, Oral, Daily, Helena Sheldon CNP, 112 mcg at 12/15/19515 magnesium oxide (MAG-OX) tablet 400 mg, 400 mg, Oral, Daily, Helena Sheldon CNP, 400 mg at 12/15/19821 melatonin Tab 10 mg, 10 mg, Oral, at bedtime, Helena Sheldon CNP, 10 mg at 12/14/192116 meropenem (MERREM) 1000 mg in sodium chloride (NS) 0.9% 50 mL (premix), 1,000 mg, Intravenous, Q12H, Maria Isabel Awad MD, Stopped at 12/15/19 0543 metFORMIN (GLUCOPHAGE) tablet 1,000 mg, 1,000 mg, Oral, BID with meals, Helena Sheldon CNP, 1,000 mg at 12/15/19821 naloxone (NARCAN) injection 0.1 mg, 0.1 mg, Intravenous, PRN AND Notify physician, , , Until Discontinued AND naloxone (NARCAN) injection 0.4 mg, 0.4 mg, Intravenous, PRN, Helena Sheldon CNP nitroGLYCERIN (NITROSTAT) SL tablet 0.4 mg, 0.4 mg, Sublingual, Q5 Min PRN, Helena Sheldon CNP ondansetron (ZOFRAN-ODT) disintegrating tablet 4 mg, 4 mg, Oral, Q6H PRN, Helena Sheldon CNP psyllium (METAMUCIL) powder 1 packet, 1 packet, Oral, Daily, Kyung Doran [facility],PharmD, 1 packet at 12/15/19 0822 senna (SENOKOT) tablet 8.6 mg, 1 tablet, Oral, BID PRN, Helena Sheldon CNP sodium phosphates (FLEETS ADULT) 19-7 gram/118 mL enema 1 each, 1 each, Rectal, Daily PRN, Catarina Sheldon CNP tamsulosin (FLOMAX) 24 hr capsule 0.4 mg, 0.4 mg, Oral, After evening meal, Helena Sheldon CNP, 0.4 mg at 12/14/19 1724 traZODone (DESYREL) tablet 50 mg, 50 mg, Oral, Nightly PRN, Helena Sheldon CNP PMH/PSH/SH/ reviewed, no change except: Status post surgical intervention by Dr. Mora on 12/02/2019 12/05/2019 Patient was seen by rehab physician rehab evaluation in progress patient's left ankle is at risk because of right foot surgery and diabetic neuropathy in the left foot also 12/07/2019 patient is now in rehab Review of Systems: All systems were reviewed and negative except: Denies any fever chills no pain in the right leg and foot 12/06/2019 denies any fever chills or diarrhea 12/08/2019 Schulte had to be reinserted for urinary increase residual 12/11/2019 Dressing was changed by Dr. Mora on Wednesday there was some drainage culture was done there was some maceration culture result is normal chalino Dr. Mora's note was reviewed by mo Medications Reviewed. Chart Reviewed. Exam Findings: Constitutional: HENT: Pupils reactive head: No oral candidiasis Eyes: No icterus Neck: Supple Cardiovascular: Heart S1-S2 2 by systolic murmur present no S3 Murmur Pulmonary/Chest: Clear Abdominal: Soft Musculoskeletal: No calf tenderness on the right leg Neurological: Has diabetic neuropathy with Charcot is able to wiggle the toes Skin postop dressing with Kerlix no drainage noted today no foul odor Patient drain has been removed by Dr. Mora over the weekend There was some maceration seen on the wound site on 12/10/2019 culture is normal chalino Schulte: Bard Schulte catheter with clear urine is being clamped now IV: Midline in the right arm site looks good denies any discomfort other: External fixator in place no drainage noted on the dressing wound to be examined by podiatrytoday Pin sites without any bleeding Wound to be examined by podiatry incision area looks clean dry without any purulence Laboratory and Additional Data Reviewed: Date: 12/15/2019 New labs/results as of last note Update from previous note Tmax: 98.7 Urine Output: 1900 Stool: not recorded Current Antibiotics: Merrem 1,000 mg IV every 12 Hours Previous Antibiotic: Rocephin 2 gm IV every 24 Hours Ancef 2,000 mg IV every 8 Hours Pre/Post Procedure I have personally reviewed the labs and results Test results Laboratory and Additional Data Reviewed: Current Cultures: 12/10/2019 Right Foot Wound Aerobic Culture: Normal Chalino After 48 Hours. Final 12/10/2019 Right foot wound, anaerobic culture: No anaerobic growth at 2 days. Final 12/08/2019 Urine Aerobic Culture: No Growth (<1,000 CFU/mL). Final. 12/07/2019 Urine Aerobic Culture on arrival to Nursing Rehab Unit: No Growth (<1,000 CFU/mL). Final. 12/02/2019 Right Foot Tissue Aerobic Culture: Normal Chalino After 48 Hours. Final. 12/02/2019 Right Foot Tissue AFB Culture: No Acid Fast Bacilli Seen. Preliminary. 12/02/2019 Right Foot Tissue Anaerobic Culture: No Anaerobic Growth at 2 Days. Final. 12/02/2019 Right Foot Tissue Fungus Culture: Fungal Culture in Progress. Preliminary. 12/01/2019 Blood Culture #1: No Growth After 5 Days. Final. 12/01/2019 Blood Culture #2: No Growth After 5 Days. Final. 11/30/2019 Right Foot Wound Aerobic Culture: Normal Chalino After 48 Hours. Final. 11/21/2019 Left Leg Wound Aerobic Culture: Normal Chalino After 48 Hours. Final. 11/20/2019 Right Foot Tissue Aerobic Culture: Moderate Growth Enterobacter cloacae complex, S=Youssef Sensitive. Final. 11/20/2019 Right Foot Tissue Anaerobic Culture: No Anaerobic Growth at 2 Days. Final. 11/20/2019 Right Foot Bone Aerobic Culture: Light Growth Enterobacter Cloacae Complex, S=Youssef Sensitive. Final. 11/20/2019 Right Foot Bone Anaerobic Culture: No Anaerobic Growth at 2 Days. Final Date: 12/14/2019 New labs/ results as of last note: 12/12/2019 T-Max: 98.6 Output: Urine 2150 ml Stool not recorded Current Antibiotics: Merrem 1,000 mg IV every 12 Hours Previous Antibiotic: Rocephin 2 gm IV every 24 Hours Ancef 2,000 mg IV every 8 Hours Pre/Post Procedure I have personally reviewed the labs and results Test results Laboratory and Additional Data Reviewed: Current Cultures: 12/10/2019 Right Foot Wound Aerobic Culture: Normal Chalino After 48 Hours. Final 12/10/2019 Right foot wound, anaerobic culture: No anaerobic growth at 2 days. Final 12/08/2019 Urine Aerobic Culture: No Growth (<1,000 CFU/mL). Final. 12/07/2019 Urine Aerobic Culture on arrival to Nursing Rehab Unit: No Growth (<1,000 CFU/mL). Final. 12/02/2019 Right Foot Tissue Aerobic Culture: Normal Chalino After 48 Hours. Final. 12/02/2019 Right Foot Tissue AFB Culture: No Acid Fast Bacilli Seen. Preliminary. 12/02/2019 Right Foot Tissue Anaerobic Culture: No Anaerobic Growth at 2 Days. Final. 12/02/2019 Right Foot Tissue Fungus Culture: Fungal Culture in Progress. Preliminary. 12/01/2019 Blood Culture #1: No Growth After 5 Days. Final. 12/01/2019 Blood Culture #2: No Growth After 5 Days. Final. 11/30/2019 Right Foot Wound Aerobic Culture: Normal Chalino After 48 Hours. Final. 11/21/2019 Left Leg Wound Aerobic Culture: Normal Chalino After 48 Hours. Final. 11/20/2019 Right Foot Tissue Aerobic Culture: Moderate Growth Enterobacter cloacae complex, S=Youssef Sensitive. Final. 11/20/2019 Right Foot Tissue Anaerobic Culture: No Anaerobic Growth at 2 Days. Final. 11/20/2019 Right Foot Bone Aerobic Culture: Light Growth Enterobacter Cloacae Complex, S=Youssef Sensitive. Final. 11/20/2019 Right Foot Bone Anaerobic Culture: No Anaerobic Growth at 2 Days. Final Update from previous note Date: 12/12/2019 New labs/results as of last note Update from previous note Tmax: 99.2 Urine Output: 1600 Stool: not recorded Current Antibiotics: Merrem 1,000 mg IV every 12 Hours Previous Antibiotic: Rocephin 2 gm IV every 24 Hours Ancef 2,000 mg IV every 8 Hours Pre/Post Procedure I have personally reviewed the labs and results Test results Laboratory and Additional Data Reviewed: Labs: CMP 12/12/2019 06:11 Glucose: 167 BUN: 26 Creatinine: 0.89 Sodium: 140 Potassium: 4.3 Total Protein: 6.7 Albumin: 2.5 Alk Phos: 83 AST: 35 ALT: 52 Total Bilirubin: 0.3 CBC 12/12/2019 06:11 WBC: 4.12 RBC: 4.13 Hgb: 10.8 Hct: 35.6 Platelets: 203 Lymphocytes Abs: 0.66 CRP 12/12/2019 06:11 52.4 Current Cultures: 12/10/2019 Right Foot Wound Aerobic Culture: Normal Chalino After 24 Hours. Preliminary. 12/08/2019 Urine Aerobic Culture: No Growth (<1,000 CFU/mL). Final. 12/07/2019 Urine Aerobic Culture on arrival to Nursing Rehab Unit: No Growth (<1,000 CFU/mL). Final. 12/02/2019 Right Foot Tissue Aerobic Culture: Normal Chalino After 48 Hours. Final. 12/02/2019 Right Foot Tissue AFB Culture: No Acid Fast Bacilli Seen. Preliminary. 12/02/2019 Right Foot Tissue Anaerobic Culture: No Anaerobic Growth at 2 Days. Final. 12/02/2019 Right Foot Tissue Fungus Culture: Fungal Culture in Progress. Preliminary. 12/01/2019 Blood Culture #1: No Growth After 5 Days. Final. 12/01/2019 Blood Culture #2: No Growth After 5 Days. Final. 11/30/2019 Right Foot Wound Aerobic Culture: Normal Chalino After 48 Hours. Final. 11/21/2019 Left Leg Wound Aerobic Culture: Normal Chalino After 48 Hours. Final. 11/20/2019 Right Foot Tissue Aerobic Culture: Moderate Growth Enterobacter cloacae complex, S=Youssef Sensitive. Final. 11/20/2019 Right Foot Tissue Anaerobic Culture: No Anaerobic Growth at 2 Days. Final. 11/20/2019 Right Foot Bone Aerobic Culture: Light Growth Enterobacter Cloacae Complex, S=Youssef Sensitive. Final. 11/20/2019 Right Foot Bone Anaerobic Culture: No Anaerobic Growth at 2 Days. Final. Date: 12/11/2019 New labs/results as of last note Update from previous note Tmax: 98.7 Urine Output: 2500 Stool: X1 Current Antibiotics: Rocephin 2 gm IV every 24 Hours until 01/02/2020 Previous Antibiotic: Ancef 2,000 mg IV every 8 Hours Pre/Post Procedure I have personally reviewed the labs and results Test results Laboratory and Additional Data Reviewed: U/A 12/08/2019 Glucose: 150 Blood: Small WBC: 7 Bacteria: Rare Labs: Vitamin D, Total 12/07/2019 04:55 16 B12/Folate 12/07/2019 04:55 B12: 828 Folate: >20.0 Ferritin 12/07/2019 04:55 211 Iron 12/07/2019 04:55 30 CMP 12/07/2019 04:55 Glucose: 243 BUN: 17 Creatinine: 0.86 Sodium: 138 Potassium: 3.9 Total Protein: 6.6 Albumin: 2.4 Alk Phos: 76 AST: 28 ALT: 40 Total Bilirubin: 0.4 CBC 12/07/2019 04:54 WBC: 6.95 Hgb: 11.3 Hct: 36.8 Platelets: 210 Lymphocytes Abs: 0.64 CRP 12/05/2019 07:58 85.3 U/A 12/07/2019 Protein: 30 Glucose: >=500 Blood: Small Leukocyte Esterase: Trace Renal Epithelial: <1 Current Cultures: 12/10/2019 Right Foot Wound Aerobic Culture: Rare WBC. Rare Epithelial Cells. No Organisms Seen. Preliminary. 12/08/2019 Urine Aerobic Culture: No Growth (<1,000 CFU/mL). Final. 12/07/2019 Urine Aerobic Culture on arrival to Nursing Rehab Unit: No Growth (<1,000 CFU/mL). Final. 12/02/2019 Right Foot Tissue Aerobic Culture: Normal Chalino After 48 Hours. Final. 12/02/2019 Right Foot Tissue AFB Culture: No Acid Fast Bacilli Seen. Preliminary. 12/02/2019 Right Foot Tissue Anaerobic Culture: No Anaerobic Growth at 2 Days. Final. 12/02/2019 Right Foot Tissue Fungus Culture: Fungal Culture in Progress. Preliminary. 12/01/2019 Blood Culture #1: No Growth After 5 Days. Final. 12/01/2019 Blood Culture #2: No Growth After 5 Days. Final. 11/30/2019 Right Foot Wound Aerobic Culture: Normal Chalino After 48 Hours. Final. 11/21/2019 Left Leg Wound Aerobic Culture: Normal Chalino After 48 Hours. Final. 11/20/2019 Right Foot Tissue Aerobic Culture: Moderate Growth Enterobacter cloacae complex, S=Youssef Sensitive. Final. 11/20/2019 Right Foot Tissue Anaerobic Culture: No Anaerobic Growth at 2 Days. Final. 11/20/2019 Right Foot Bone Aerobic Culture: Light Growth Enterobacter Cloacae Complex, S=Youssef Sensitive. Final. 11/20/2019 Right Foot Bone Anaerobic Culture: No Anaerobic Growth at 2 Days. Final. Date: 12/08/2019 New labs/results as of last note Update from previous note Tmax: 99.2 Urine Output: 4950 Stool: not recorded Current Antibiotics: Rocephin 2 gm IV every 24 Hours until 01/02/2020 Previous Antibiotic: Ancef 2,000 mg IV every 8 Hours Pre/Post Procedure I have personally reviewed the labs and results Test results Laboratory and Additional Data Reviewed: U/A 12/08/2019 Glucose: 150 Blood: Small WBC: 7 Bacteria: Rare Labs: Vitamin D, Total 12/07/2019 04:55 16 B12/Folate 12/07/2019 04:55 B12: 828 Folate: >20.0 Ferritin 12/07/2019 04:55 211 Iron 12/07/2019 04:55 30 CMP 12/07/2019 04:55 Glucose: 243 BUN: 17 Creatinine: 0.86 Sodium: 138 Potassium: 3.9 Total Protein: 6.6 Albumin: 2.4 Alk Phos: 76 AST: 28 ALT: 40 Total Bilirubin: 0.4 CBC 12/07/2019 04:54 WBC: 6.95 Hgb: 11.3 Hct: 36.8 Platelets: 210 Lymphocytes Abs: 0.64 CRP 12/05/2019 07:58 85.3 U/A 12/07/2019 Protein: 30 Glucose: >=500 Blood: Small Leukocyte Esterase: Trace Renal Epithelial: <1 Current Cultures: 12/07/2019 Urine Aerobic Culture on arrival to Nursing Rehab Unit: No Growth, Incubation Continued.Preliminary. 12/02/2019 Right Foot Tissue Aerobic Culture: Normal Chalino After 48 Hours. Final. 12/02/2019 Right Foot Tissue AFB Culture: No Acid Fast Bacilli Seen. Preliminary. 12/02/2019 Right Foot Tissue Anaerobic Culture: No Anaerobic Growth at 2 Days. Final. 12/02/2019 Right Foot Tissue Fungus Culture: Fungal Culture in Progress. Preliminary. 12/01/2019 Blood Culture #1: No Growth After 5 Days. Final. 12/01/2019 Blood Culture #2: No Growth After 5 Days. Final. 11/30/2019 Right Foot Wound Aerobic Culture: Normal Chalino After 48 Hours. Final. 11/21/2019 Left Leg Wound Aerobic Culture: Normal Chalino After 48 Hours. Final. 11/20/2019 Right Foot Tissue Aerobic Culture: Moderate Growth Enterobacter cloacae complex, S=Youssef Sensitive. Final. 11/20/2019 Right Foot Tissue Anaerobic Culture: No Anaerobic Growth at 2 Days. Final. 11/20/2019 Right Foot Bone Aerobic Culture: Light Growth Enterobacter Cloacae Complex, S=Youssef Sensitive. Final. 11/20/2019 Right Foot Bone Anaerobic Culture: No Anaerobic Growth at 2 Days. Final. Radiology: Left Ankle X-Ray 12/07/2019 1. A new screw internally fixes the base of the 5th metatarsal to near anatomic alignment, however this screw is broken/fractured. 2. 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 Lateral subluxation of the 2nd through 5th metatarsal bases is again noted, as well as pes planus deformity. 3. Milder arthritis is noted in the tibiotalar joint and subtalar joint. 4. Large calcaneal enthesophytes are noted at the insertion sites of the plantar fascia and Achilles tendon. 5. No acute fracture, or other acute bony abnormality is seen. Date: 12/07/2019 New labs/results as of last note Update from previous note Tmax: 99.1 Urine Output: 1800 Stool: not recorded Current Antibiotics: Rocephin 2 gm IV every 24 Hours until 01/02/2020 Previous Antibiotic: Ancef 2,000 mg IV every 8 Hours Pre/Post Procedure I have personally reviewed the labs and results Test results Laboratory and Additional Data Reviewed: Labs: Vitamin D, Total 12/07/2019 04:55 16 B12/Folate 12/07/2019 04:55 B12: 828 Folate: >20.0 Ferritin 12/07/2019 04:55 211 Iron 12/07/2019 04:55 30 CMP 12/07/2019 04:55 Glucose: 243 BUN: 17 Creatinine: 0.86 Sodium: 138 Potassium: 3.9 Total Protein: 6.6 Albumin: 2.4 Alk Phos: 76 AST: 28 ALT: 40 Total Bilirubin: 0.4 CBC 12/07/2019 04:54 WBC: 6.95 Hgb: 11.3 Hct: 36.8 Platelets: 210 Lymphocytes Abs: 0.64 CRP 12/05/2019 07:58 85.3 U/A 12/07/2019 Protein: 30 Glucose: >=500 Blood: Small Leukocyte Esterase: Trace Renal Epithelial: <1 Current Cultures: 12/02/2019 Right Foot Tissue Aerobic Culture: Normal Chalino After 48 Hours. Final. 12/02/2019 Right Foot Tissue AFB Culture: No Acid Fast Bacilli Seen. Preliminary. 12/02/2019 Right Foot Tissue Anaerobic Culture: No Anaerobic Growth at 2 Days. Final. 12/02/2019 Right Foot Tissue Fungus Culture: Fungal Culture in Progress. Preliminary. 12/01/2019 Blood Culture #1: No Growth After 5 Days. Final. 12/01/2019 Blood Culture #2: No Growth After 5 Days. Final. 11/30/2019 Right Foot Wound Aerobic Culture: Normal Chalino After 48 Hours. Final. 11/21/2019 Left Leg Wound Aerobic Culture: Normal Chalino After 48 Hours. Final. 11/20/2019 Right Foot Tissue Aerobic Culture: Moderate Growth Enterobacter cloacae complex, S=Youssef Sensitive. Final. 11/20/2019 Right Foot Tissue Anaerobic Culture: No Anaerobic Growth at 2 Days. Final. 11/20/2019 Right Foot Bone Aerobic Culture: Light Growth Enterobacter Cloacae Complex, S=Youssef Sensitive. Final. 11/20/2019 Right Foot Bone Anaerobic Culture: No Anaerobic Growth at 2 Days. Final. Date: 12/06/2019 New labs/results as of last note Update from previous note Tmax: 99 Urine Output: 1250 Stool: not recorded Current Antibiotics: Rocephin 2 gm IV every 24 Hours until 01/02/2020 Previous Antibiotic: Ancef 2,000 mg IV every 8 Hours Pre/Post Procedure I have personally reviewed the labs and results Test results Laboratory and Additional Data Reviewed: Labs: CBC 12/05/2019 07:58 WBC: 7.98 Hgb: 11.4 Hct: 36.3 Platelets: 228 Lymphocytes Abs: 0.52 CMP 12/05/2019 07:58 Glucose: 223 BUN: 19 Creatinine: 0.86 Sodium: 139 Potassium: 4.1 Total Protein: 6.4 Albumin: 2.4 Alk Phos: 75 AST: 20 ALT: 31 Total Bilirubin: 0.4 CRP 12/05/2019 07:58 85.3 Current Cultures: 12/02/2019 Right Foot Tissue Aerobic Culture: Normal Chalino After 48 Hours. Final. 12/02/2019 Right Foot Tissue AFB Culture: No Acid Fast Bacilli Seen. Preliminary. 12/02/2019 Right Foot Tissue Anaerobic Culture: No Anaerobic Growth at 2 Days. Final. 12/02/2019 Right Foot Tissue Fungus Culture: Fungal Culture in Progress. Preliminary. 12/01/2019 Blood Culture #1: No Growth After 5 Days. Final. 12/01/2019 Blood Culture #2: No Growth After 5 Days. Final. 11/30/2019 Right Foot Wound Aerobic Culture: Normal Chalino After 48 Hours. Final. 11/21/2019 Left Leg Wound Aerobic Culture: Normal Chalino After 48 Hours. Final. 11/20/2019 Right Foot Tissue Aerobic Culture: Moderate Growth Enterobacter cloacae complex, S=Youssef Sensitive. Final. 11/20/2019 Right Foot Tissue Anaerobic Culture: No Anaerobic Growth at 2 Days. Final. 11/20/2019 Right Foot Bone Aerobic Culture: Light Growth Enterobacter Cloacae Complex, S=Youssef Sensitive. Final. 11/20/2019 Right Foot Bone Anaerobic Culture: No Anaerobic Growth at 2 Days. Final. Pathology: 12/02/2019 A. Soft tissue, Right Foot, excision: Non-specific ulcer. Date: 12/05/2019 New labs/results as of last note Update from previous note Tmax: 98.8 Urine Output: 2900 Stool: not recorded Current Antibiotics: Rocephin 2 gm IV every 24 Hours Previous Antibiotic: Ancef 2,000 mg IV every 8 Hours Pre/Post Procedure I have personally reviewed the labs and results Test results Laboratory and Additional Data Reviewed: Labs: CBC 12/05/2019 07:58 WBC: 7.98 Hgb: 11.4 Hct: 36.3 Platelets: 228 Lymphocytes Abs: 0.52 CMP 12/05/2019 07:58 Glucose: 223 BUN: 19 Creatinine: 0.86 Sodium: 139 Potassium: 4.1 Total Protein: 6.4 Albumin: 2.4 Alk Phos: 75 AST: 20 ALT: 31 Total Bilirubin: 0.4 CRP 12/05/2019 07:58 85.3 Current Cultures: 12/02/2019 Right Foot Tissue Aerobic Culture: Normal Chalino After 48 Hours. Final. 12/02/2019 Right Foot Tissue AFB Culture: No Acid Fast Bacilli Seen. Preliminary. 12/02/2019 Right Foot Tissue Anaerobic Culture: No Anaerobic Growth at 2 Days. Final. 12/02/2019 Right Foot Tissue Fungus Culture: Fungal Culture in Progress. Preliminary. 12/01/2019 Blood Culture #1: No Growth After 48 Hours. Preliminary. 12/01/2019 Blood Culture #2: No Growth After 48 Hours. Preliminary. 11/30/2019 Right Foot Wound Aerobic Culture: Normal Chalino After 48 Hours. Final. 11/21/2019 Left Leg Wound Aerobic Culture: Normal Chalino After 48 Hours. Final. 11/20/2019 Right Foot Tissue Aerobic Culture: Moderate Growth Enterobacter cloacae complex, S=Youssef Sensitive. Final. 11/20/2019 Right Foot Tissue Anaerobic Culture: No Anaerobic Growth at 2 Days. Final. 11/20/2019 Right Foot Bone Aerobic Culture: Light Growth Enterobacter Cloacae Complex, S=Youssef Sensitive. Final. 11/20/2019 Right Foot Bone Anaerobic Culture: No Anaerobic Growth at 2 Days. Final. Current Antibiotics: Rocephin 2 gm IV every 24 Hours Previous Antibiotic: Ancef 2,000 mg IV every 8 Hours Pre/Post Procedure I have personally reviewed the labs and results Test results Laboratory and Additional Data Reviewed: Results from last 7 days Lab Units 12/01/19 0648 11/30/19 1245 11/29/19 0655 SODIUM mmol/L 140 140 142 POTASSIUM mmol/L 5.0 4.9 5.1 CHLORIDE mmol/L 106 105 107 BUN mg/dL 22 24 36* CREATININE mg/dL 0.98 0.94 1.12 GLUCOSE mg/dL 223* 127* 108* CALCIUM mg/dL 9.1 9.3 9.3 Results from last 7 days Lab Units 12/01/19 0635 11/30/19 1245 WBC K/mcL 8.56 8.72 HGB g/dL 11.2* 10.8* HCT % 35.6* 35.4* PLT K/mcL 232 243 Results from last 7 days Lab Units 11/30/19 1245 ALK PHOS U/L 67 BILIRUBIN TOTAL mg/dL 0.3 TOTAL PROTEIN g/dL 6.5 ALTR U/L 56 AST U/L 42 Current Cultures: 12/02/2019 Right Foot Tissue Aerobic Culture: Normal Chalino After 24 Hours. Preliminary. 12/02/2019 Right Foot Tissue AFB Culture: No Acid Fast Bacilli Seen. Preliminary. 12/01/2019 Blood Culture #1: No Growth After 48 Hours. Preliminary. 12/01/2019 Blood Culture #2: No Growth After 48 Hours. Preliminary. 11/30/2019 Right Foot Wound Aerobic Culture: Normal Chalino After 48 Hours. Final. 11/21/2019 Left Leg Wound Aerobic Culture: Normal Chalino After 48 Hours. Final. 11/20/2019 Right Foot Tissue Aerobic Culture: Moderate Growth Enterobacter cloacae complex, S=Youssef Sensitive. Final. 11/20/2019 Right Foot Tissue Anaerobic Culture: No Anaerobic Growth at 2 Days. Final. 11/20/2019 Right Foot Bone Aerobic Culture: Light Growth Enterobacter Cloacae Complex, S=Youssef Sensitive. Final. 11/20/2019 Right Foot Bone Anaerobic Culture: No Anaerobic Growth at 2 Days. Final. Recent Cultures: 05/30/2019 Right Foot Tissue Aerobic Culture: Normal Chalino After 48 Hours. Final. 05/30/2019 Right Foot Tissue Anaerobic Culture: No Anaerobic Growth at 2 Days. Final. 03/23/2019 Right Foot Wound Aerobic Culture: Heavy Growth Raoultella [place], R=Ampicillin, S=Remainder of panel. 03/09/2019 Right Foot Wound Aerobic Culture: Normal Chalino After 48 Hours. Final. 02/09/2019 Right Foot Wound Aerobic Culture: Normal Chalino After 48 Hours. Final. 01/19/2019 Right Toe Two Wound Aerobic Culture: Heavy Growth Enterobacter Cloacae Complex, S=Youssef Sensitive. Final. Radiology: Right Foot X-Ray 12/02/2019 Intraoperative fluoroscopy provided. Severe bony deformity of the foot as described. Please correlate with operative note. Chest X-Ray 11/23/2019 1. Right arm PICC line in place with tip in superior vena cava. 2. No acute pulmonary disease. 3. Cardiomegaly with evidence of prior open heart surgery. 4. No acute osseous abnormality Right Foot X-Ray 11/20/2019 IMPRESSION: Intraoperative fluoroscopy for localization during right foot and ankle reconstruction and fixation. Please see operative report for details. Left Ankle X-Ray Ordered 11/20/2019 Right Foot X-Ray 11/20/2019 FINDINGS: Two views of the right foot were obtained. There are advanced changes of Charcot arthropathy throughout the right midfoot which appears similar compared to prior examination. There are postsurgical changes of resection of the right 2nd toe proximal phalangeal head. IMPRESSION: 1. Advanced changes of Charcot arthropathy throughout the right midfoot which appear unchanged compared to prior examination. Chest AP/PA X-Ray 11/16/2019 1. No acute pulmonary disease. 2. Cardiomegaly, with evidence of prior open heart surgery. 3. Multilevel degenerative changes of the thoracic spine. MR Right Foot 05/19/2019 1. There is a superficial soft tissue ulcer again seen along the plantar aspect of the midfoot, butthere is no evidence of abscess or osteomyelitis in this region. 2. Stable appearance of the sequela of severe neuropathic arthropathy of the midfoot with collapse of the midfoot again seen resulting in a rocker bottom deformity. 3. A moderate amount of diffuse subcutaneous edema along the dorsum of the foot may be due to reactive edema or a cellulitis, but this is nonspecific. Right Foot X-Ray 04/28/2019 1. Soft tissue irregularity involving the plantar aspect of the foot likely representing the reported ulcer. No bony destruction to suggest osteomyelitis. 2. No evidence of radiopaque foreign body. 3. Stable deformity and degenerative changes involving the midfoot. Findings are consistent with Charcot joint. NM White Cell Scan Spot Limited 03/08/2017 FINDINGS: A focal area of intense abnormal white blood cell migration is noted central plantar aspect of the right foot corresponding to the area of the wound demonstrated radiographically. No other focus of white blood cell migration abnormality is evident within the right or left foot. IMPRESSION: Focal area of abnormal white blood cell migration at the plantar aspect central right foot may be at the wound itself or may be involving the bone with associated fracture as demonstrated radiographically. Anatomic detail is insufficient for differentiation between the two. Renal U/S 03/07/2017 IMPRESSION: Severe thickening of the urinary bladder wall. This could be due to outlet obstruction with hypertrophy of the wall. If there is no such history, this should be evaluated with cystoscopy. CVPS: Arterial Doppler: not on file Venous Doppler: not on file 2D Echo 11/23/2019 Moderate LV enlargement with LVH. Global systolic dysfunction with segmental features. LVEF 30% Elevated LV filling pressures RV is dilated with severe RV dysfunction Mild mitral annular calcification, mild thickening of the aortic valve without hemodynamically significant valvular disease There is a atrial level right to left shunt identified with saline contrast with free breathing andValsalva most likely via PFO LVEF unchanged from to previous echo from 2017 Surgeries: Please see above for surgical history Procedure: Right Foot I&D ADJUSTMENT EXTERNAL FIXATOR Date: 12/02/2019 Surgery: Alena Mora DPM Procedure: RIGHT FOOT RECONSTRUCTION WITH APPLICATION OF CIRCULAR STATIC EXTERNAL FIXATION Date: 11/20/2019 Surgeon: Alena Mora DPM Procedure: ARTHROPLASTY 2ND TOE RIGHT FOOT Date: 01/25/2019 Surgeon: Rosa M Robles DPM Pathology: not on file * Peggy Avery, PT - 12/15/2019 9:49 AM EDT PHYSICAL THERAPY Daily Progress Note Pt is going to have sister look for sliding board at home. He plans to go home by himself. He will need to go home at a sliding board level and continue to work on transfers with walker with therapy. Therapy Precautions Therapy Precautions Orthotic Devices: Yes Lower Extremity: External Fixator, Right Weight Bearing Status: X RLE: Non Wt bearing LLE: Wt bearing as tolerated General Rehab Precautions: Fall risk Balance Bed Mobility Bed Mobility Supine to Sit: Contact guard Sit to Supine: Contact guard Skilled Intervention: due to getting on/off of moveo Transfers Transfers Sit to Stand: Min Stand Pivot Transfers: Mod(with RW) Lateral Transfers: Stand by assistance(with sliding board) Skilled Intervention: first attempt to rise to walker, pt lost balance and fell back into w/c. Pt needed cues for technique and for hand placement. PT adjusted legrest and placed pad on legrest. He had end of legrest removed and belt applied to help with positioning. Pt educated again on watching right LE placement. Gait/Locomotion Exercise Exercises Skilled Intervention: moveo tilt table on 15 and then at 10 degrees working with just left LE strengthening. Pt needed cues for watcing his right LE with use of right leg support. pt also performed rickshaw 15 reps x 3 with 60#. Home Living Home Living Type of Home: House Home Layout: One level, Able to live on main level with bedroom/bathroom, Ramped entrance Bathroom Shower/Tub: Tub/shower unit Bathroom Accessibility: Accessible via walker Home Equipment: Wheeled Walker, Wheelchair-manual(mayco rea, ) Additional Comments: Just recently was at [facility] for therapy Prior Level of Function Prior Function Level of [place]: Independent with ADLs and functional transfers, Independent with homemaking with ambulation Lives With: Alone Receives Help From: Family ADL Assistance: Independent Homemaking Assistance: Independent Vocational: On disability Leisure: (cooking, shopping sports/electronics, target shoot, read, ) Comments: likes to build models, pt stayed in w/c most of the day, walked short distances at home, but was able to walk around stores ok though Exit Protocol Followed: Yes For complete objective data, detailed plan of care and patient education refer to: PT EVALUATION flow sheet, PT TREATMENT flow sheet, patient Plan of Care, Plan of Care progress note, and Patient Education. * Helean Sheldon CNP - 12/15/2019 9:46 AM EDT [facility] Medicine Inpatient Consult Follow-up Helena Sheldon CNP Patient: Dyllan Huertas Date of : 1960 (59 y.o.) PCP: Rohit Aguilar MD Referring Provider: Sinai Lopez* Consult: Alisa Singh MD: Hospitalist assistance with medical management ASSESSMENT/PLAN: Principal Problem: Osteomyelitis (HCC) Active Problems: 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) JAYDEN (obstructive sleep apnea) Mixed hyperlipidemia Benign prostatic hyperplasia with urinary retention Essential hypertension S/P foot surgery, right S/P foot surgery, right Assessment & Plan Dr. Mora podiatry consulted to manage wound. Extensive wound care is needed. Non wt bearing. Essential hypertension Assessment & Plan Monitor blood pressure per shift. Check kidney function. Continue coreg Benign prostatic hyperplasia with urinary retention Assessment & Plan Has been straight cathing at home. Follows with Dr. Izquierdo. Bladder training, remove schulte, bladder scan and straight cath. Pt has no bladder sensation Mixed hyperlipidemia Assessment & Plan Continue lipitor and fenofibrate. Uses crestor at home. Monitor liver function JAYDEN (obstructive sleep apnea) Assessment & Plan Encourage pt to wear cpap. Wear nasal cannula at 2L at night if he refuses Cpap 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) Assessment & Plan Consult endocrinology. DM has not been well controlled and the infection is making it worse. Monitor blood glucose ACHS, continue lantus, preprandial humalog, and sliding scale. Diabetic diet * Osteomyelitis (HCC) Assessment & Plan Consult ID and continue IV antibiotics. Non wt bearing on right foot. 12/07 Dr. Mora came and had nurse change leg dressing on his left foot with the external fixator. It took over an hour to clean and wrap each pin. Pt tolerated well. Compliant with therapy. Continues antibiotics 12/08 Afebrile, continues with antibiotic therapy DM being managed by endocrinology. Blood pressure is stable. Complaint with therapy 12/10 Glucose is becoming controlled. External fixator is intact No signs of infection Blood pressure is controlled New culture taken of wound due to some drainage. Dr. Andrey awad waiting for results 12/11 Blood glucose is controlled. Angelina Emanuel has changed antibiotic to Merepenem Pain is controlled. Constipation is resolved, metamucil has been started. Blood pressure is controlled. Afebrile 12/12 Making good progress with stand pivots. BP and HR stable. Has not had a BM today. But is taking metamucil daily, so he feels he can go tomorrow. Left leg wrapping of external fixator 12/13 Bladder training is continuing. Pt has been self cathing once at night for 4 years. He was previously able to void during the day. Will bladder train, start flomax and self cath, set up supplies upon discharge and follow up with DR Izquierdo, urologist. BP and HR stable Meropenem continues per ID Right foot dressing intact around external fixator Gaining strength in isela arms and left leg for transfers. 12/14 Continues bladder training. Small BM but feeling constipated BP and HR stable. Agreed to stay a few more days Continue merepenem SUBJECTIVE: History Since Last Visit: denies pain Current Scheduled Meds: aspirin 162 mg Oral Daily atorvastatin 40 mg Oral Nightly calcium carbonate 1,000 mg Oral Daily carvediloL 12.5 mg Oral BID docusate sodium 100 mg Oral Daily fenofibrate 160 mg Oral Daily with breakfast gabapentin 300 mg Oral Q8H LESLEY insulin glargine 35 Units Subcutaneous BID lispro insulin 0-15 Units Subcutaneous at bedtime insulin lispro 0-30 Units Subcutaneous TID AC levothyroxine 112 mcg Oral Daily magnesium oxide 400 mg Oral Daily melatonin 10 mg Oral at bedtime meropenem 1,000 mg Intravenous Q12H metFORMIN 1,000 mg Oral BID with meals psyllium husk 1 packet Oral Daily tamsulosin 0.4 mg Oral After evening meal Review of Systems: All other systems reviewed and negative other than HPI OBJECTIVE: Physical Examination: Vital Signs: BP 130/75 Pulse 90 Temp 99 F (37.2 C) (Oral) Resp 16 Ht 5' 11 Wt 118 kg (260 lb 2.3 oz) SpO2 96% BMI 36.28 kg/m Physical Exam General Appearance: Alert, well appearing, and in no acute distress. HEENT: Head - Normocephalic, atraumatic. Eyes - ALEKS bilaterally and EOMI. Ears - normal external appearance, hearing intact. Nose - normal, no erythema. Throat - mucous membranes moist, pharynx without lesions. Neck: Supple, trachea midline. Cardiovascular: S1, S2 normal. No murmurs, rubs, clicks or gallops appreciated. No pedal edema. Respiratory: Lungs clear to auscultation, no wheezes, rales or rhonchi heard. Abdomen: Soft, non-tender, normal bowel sounds, non-distended, no masses or organomegaly appreciated. Neurological: Limited movement in lower ext. Numbness from knee down. Musculoskeletal: Right foot s/p surgery, swollen. Left foot swollen from surgery history Skin: Normal coloration and turgor. No rashes. External fixator with large incision, on right foot Psych: Alert, oriented x 3. Normal mood and affect. Laboratory and Additional Data Reviewed: Results/Medications Reviewed 12/16/19 9:46 AM: Results from last 7 days Lab Units 12/12/19 0611 SODIUM mmol/L 140 POTASSIUM mmol/L 4.3 CHLORIDE mmol/L 106 BUN mg/dL 26* CREATININE mg/dL 0.89 GLUCOSE mg/dL 167* CALCIUM mg/dL 9.7 Results from last 7 days Lab Units 12/12/19 0611 WBC K/mcL 4.12* HGB g/dL 10.8* HCT % 35.6* PLT K/mcL 203 Results from last 7 days Lab Units 12/12/19 0611 ALK PHOS U/L 83 BILIRUBIN TOTAL mg/dL 0.3 TOTAL PROTEIN g/dL 6.7 ALTR U/L 52 AST U/L 35 CULTURES: Reviewed 12/16/19 9:46 AM Radiology/Imaging: Reviewed 12/16/19 9:46 AM * Prachi Frankel PA-C - 12/15/2019 8:15 AM EDT Patient ID: Patient Name: Dyllan Huertas Admit Date: 12/06/2019 MR #: [id number] : 1960 Current location: [facility] Physicians: Rohit Aguilar MD (Family); Marino Sheldon CNP (Referring) Reason for consult: Type 2 diabetes out of control Assessment/Plan: Dx: Type 2 diabetes, under poor control Patient would benefit from adjustment in insulin levels to seek euglycemia and aid in wound healing. See plan below. Currently taking as outpatient: Metformin 1000 mg twice daily Humalog insulin: 8 units at breakfast; 8 units at lunch; 8 units at supper Humalog sliding scale Lantus insulin: 30 units at breakfast; 30 units at bedtime Current Hemoglobin A1C= Lab Results Component Value Date HGBA1C 8.8 (H) 11/27/2019 HGBA1C 8.5 (H) 01/20/2019 NOTES: 12/07: Patient's blood glucose levels reviewed over the last 48 hours. Patient recently transferred to the inpatient rehabilitation unit blood glucose levels over the last for a 8 hours have ranged from 185-345 mg/dL. The present time he is taking 30 units of Lantus twice daily along with 8 units of Humalog with meals. Patient also takes metformin 1000 mg twice daily. 12/10: BG reviewed over the last 48 hours. Patient currently receiving Metformin 1000 mg daily, 12 units with meals + SS, and 35 units of Lantus BID. Patient reports that BG are better now than they usually are at home. 12/12: BG reviewed over the last 48 hours. Patient currently receiving Metformin 1000 mg daily, 12 units with meals + SS, and 35 units of Lantus BID. 12/14: BG reviewed over the last 48 hours. We received a call about patient's BG being 91 at supper time and them being worried about hypoglycemia with full supper time dose. Thus, patient was switched from Conservative SS to Insulin Sensitive SS with meals in addition to 09/14/12 of Humalog and 35/35 of Lantus. Blood Glucoses: 12/06: 242---341---239---345 12/07: 185---216---151---252 12/08: 203---190---133---153 12/09: 125---149---152---164 12/10: 168---162---153---195 12/11: 231---178---134---102 12/12: 137---160---159---191 12/13 129---233---91----214 12/14: 124 Plan: 1. Rx changes: Adjust as below Humalog insulin: 12 units at breakfast; 12 units at lunch; 12 units at supper Lantus insulin: 35 units at breakfast; 35 units at bedtime Continue Metformin 1000 mg twice daily Decrease SSI to conservative dose. 12/10: CPM 12/12: CPM 12/14: We received a call about patient's BG being 91 yesterday at dinner. Thus, we decreased patient's SS to insulin sensitive but will continue 09/14/12 of Humalog and 35/35 of Lantus. 2. Education: Reviewed ABCs of diabetes management (respective goals in parentheses): A1C (7.0-8.0), blood pressure (<130/80), and cholesterol (LDL <100). Referral to Diabetes Education Referral to Nutrition therapy Subjective: Brief HPI: 12/10: Patient sitting up in wheelchair finishing breakfast. He is without complaints this am. Patient reports that BG are better now than they usually are at home. We discussed that it is most likely diet related and patient admits to eating whatever he wants at home. 12/12: Patient sitting up in his wheelchair he had just finished breakfast. He is without complaintsthis morning. Patient reports that PT and OT are going well. 12/14: Patient sitting in wheelchair and had just finished breakfast. He reports that the current plan is for him to be discharged home on 12/19/2019. Patient reports that he wants to follow up with his PCP because he lives in [place] and will not transportation while he continues to recover. Dyllan Huertas is a 59 y.o. male with a past medical history of type 2 DM w/ charcot joint arthropath. Patient recently underwent right midfoot wedge resection with application of external fixator (11/20/19). He was initially admitted on 11/30/2019 with osteomyelitis of right ankle. Patient was transferred to [facility] inpatient rehab on 12/06/19. Hospital course significant for: debridement of right ankle; hyperglycemia. IV abx per ID. Patient reports that his pain is well controlled. He denies CP or SOB. He reports that he has numbness/tingling of lower limbs. Patient has had diabetes for close to 30 years. Diagnosed in his late 's, he started with OHAs, transitioned to insulin in approximately 2011. Patient is currently taking Humalog insulin: 8 units at breakfast; 8 units at lunch; 8 units at supper Lantus insulin: 30 units at breakfast; 30 units at bedtime. Prior to admission he reports taking close to 50 units of R TID with meals and 50 units of lantus at HS. Patient reports he had considered changing to R and N due to cost of brand name insulin, however he is planning to delay that at this time. Blood sugar levels since admission have been ranging from 185-362 mg/dL. Current monitoring regimen: home blood tests - 2 times daily Complications of diabetes include: Retinopathy: Negative Nephropathy: Negative Peripheral Neuropathy: Positive Autonomic Neuropathy: Negative Allergies: No Known Allergies Home Medications: Current Facility-Administered Medications Medication Dose Route Frequency Provider Last Rate Last Dose acetaminophen (TYLENOL) tablet 650 mg 650 mg Oral Q4H PRN Helena Sheldon CNP 650 mg at 12/09/19 2142 albuterol (PROVENTIL) 2.5 mg /3 mL (0.083 %) nebulizer solution 2.5 mg 2.5 mg Inhalation Q2H PRN Helena Sheldon CNP aspirin EC tablet 162 mg 162 mg Oral Daily Helena Sheldon CNP 162 mg at 12/14/19 0838 atorvastatin (LIPITOR) tablet 40 mg 40 mg Oral Nightly Helena Sheldon DE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 40 mg at 12/14/192116 bisacodyL (DULCOLAX) suppository 10 mg 10 mg Rectal Daily PRN Helena Sheldon DE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 10 mg at 12/08/19 2242 calcium carbonate (TUMS) chewable tablet 1,000 mg 1,000 mg Oral Daily Helena Sheldon DE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 1,000mg at 12/14/19 0839 carvediloL (COREG) tablet 12.5 mg 12.5 mg Oral BID Helena Sheldon DE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 12.5 mg at 12/14/197 docusate sodium (COLACE) capsule 100 mg 100 mg Oral Daily Helena Sheldon DE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 100 mg at 12/14/19 0839 docusate sodium (COLACE) capsule 100 mg 100 mg Oral BID PRN Helena Sheldon CNP 100 mg at 12/13/19 1712 fenofibrate tablet 160 mg 160 mg Oral Daily with breakfast Helena Sheldon CNP 160 mg at 12/14/19 0839 gabapentin (NEURONTIN) capsule 300 mg 300 mg Oral Q8H [place] Helena Sheldon DE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 300 mg at 12/15/19 0516 insulin glargine (LANTUS) injection 35 Units 35 Units Subcutaneous BID Andrés Andre CNP 35 Units at 12/14/192116 insulin lispro (HumaLOG) injection 0-15 Units 0-15 Units Subcutaneous at bedtime Helena Sheldon DE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 0 Units at 12/14/192117 insulin lispro (HumaLOG) injection 0-30 Units 0-30 Units Subcutaneous TID AC Sera Bowden MD levothyroxine (SYNTHROID, LEVOTHROID) tablet 112 mcg 112 mcg Oral Daily Helena Sheldon DE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 112mcg at 12/15/19 0516 magnesium oxide (MAG-OX) tablet 400 mg 400 mg Oral Daily Helena Sheldon CNP 400 mg at 12/14/200744 melatonin Tab 10 mg 10 mg Oral at bedtime Helena Sheldon DE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 10 mg at 12/14/197 meropenem (MERREM) 1000 mg in sodium chloride (NS) 0.9% 50 mL (premix) 1,000 mg Intravenous Q12H Maria Isabel Awad MD Stopped at 12/15/19 0543 metFORMIN (GLUCOPHAGE) tablet 1,000 mg 1,000 mg Oral BID with meals Helena Sheldon CNP 1,000 mg at 12/14/19 1723 naloxone (NARCAN) injection 0.1 mg 0.1 mg Intravenous PRN Helena Sheldon CNP And naloxone (NARCAN) injection 0.4 mg 0.4 mg Intravenous PRN Helena Sheldon CNP nitroGLYCERIN (NITROSTAT) SL tablet 0.4 mg 0.4 mg Sublingual Q5 Min PRN Helena Sheldon CNP ondansetron (ZOFRAN-ODT) disintegrating tablet 4 mg 4 mg Oral Q6H PRN Helena Sheldon CNP psyllium (METAMUCIL) powder 1 packet 1 packet Oral Daily Kyung Doran [facility],Pharm[facility] 1 packet at 12/14/19 0839 senna (SENOKOT) tablet 8.6 mg 1 tablet Oral BID PRN Helena Sheldon CNP sodium phosphates (FLEETS ADULT) 19-7 gram/118 mL enema 1 each 1 each Rectal Daily PRN Helena Jaimes CNP tamsulosin (FLOMAX) 24 hr capsule 0.4 mg 0.4 mg Oral After evening meal Helena Sheldon CNP 0.4mg at 12/14/19 1724 traZODone (DESYREL) tablet 50 mg 50 mg Oral Nightly PRN Helena Sheldon CNP Current Medications: aspirin 162 mg Oral Daily atorvastatin 40 mg Oral Nightly calcium carbonate 1,000 mg Oral Daily carvediloL 12.5 mg Oral BID docusate sodium 100 mg Oral Daily fenofibrate 160 mg Oral Daily with breakfast gabapentin 300 mg Oral Q8H [facility] insulin glargine 35 Units Subcutaneous BID lispro insulin 0-15 Units Subcutaneous at bedtime insulin lispro 0-30 Units Subcutaneous TID AC levothyroxine 112 mcg Oral Daily magnesium oxide 400 mg Oral Daily melatonin 10 mg Oral at bedtime meropenem 1,000 mg Intravenous Q12H metFORMIN 1,000 mg Oral BID with meals psyllium husk 1 packet Oral Daily tamsulosin 0.4 mg Oral After evening meal acetaminophen, albuterol, bisacodyL, docusate sodium, nalOXone AND Notify physician AND naloxone, nitroGLYCERIN, ondansetron, senna, sodium phosphates, traZODone Review of Systems: Review of Systems Constitutional: Positive for activity change, fatigue and unexpected weight change. HENT: Negative for trouble swallowing. Eyes: Negative for visual disturbance. Respiratory: Negative for cough and shortness of breath. Cardiovascular: Negative for chest pain and leg swelling. Gastrointestinal: Negative for abdominal pain, constipation, diarrhea, nausea and vomiting. Endocrine: Negative for polydipsia, polyphagia and polyuria. Genitourinary: Schulte in place Musculoskeletal: Positive for arthralgias and myalgias. Skin: Negative for wound. Neurological: Positive for weakness and numbness (and tingling). Negative for headaches. Psychiatric/Behavioral: Negative for agitation and sleep disturbance. The patient is not nervous/anxious. History: Past Medical History: Diagnosis Date Coronary artery disease Diabetes mellitus, type 2 (HCC) Hyperlipidemia Hypertension Hypothyroidism Peripheral neuropathy S/P foot surgery, right 12/09/2019 11/20/2019Right foot reconstruction surgery with external fixation 12/02/2019 Right foot I and D Sleep apnea, obstructive does not use CPAP Past Surgical History: Procedure Laterality Date APPENDECTOMY ARTHROPLASTY TOE Right 01/25/2019 Procedure: ARTHROPLASTY 2ND TOE RIGHT FOOT; Surgeon: Rosa M Robles DPM; Location: [facility]; Service: Podiatry CABG 2017 CARDIAC SURGERY 2017 CABG tripe bypass CLOSED REDUCTION PERCUTANEOUS PINNING LOWER EXTREMITY N/A 12/02/2019 Procedure: ADJUSTMENT of EXTERNAL FIXATOR; Surgeon: Alena Mora DPM; Location: [facility] OR; Service: Podiatry CYST REMOVED FROM CHEST N/A INCISION AND DRAINAGE FOOT AND ANKLE Right 12/02/2019 Procedure: RIGHT FOOT I&D; Surgeon: Alena Mora DPM; Location: [facility]; Service: Podiatry METAL IN LEFT LEFT WRIST AND LEFT 5TH TOE Left ORTHOPEDIC SURGERY RECONSTRUCTION FOOT CHARCOT Right 11/20/2019 Procedure: RIGHT FOOT RECONSTRUCTION WITH APPLICATION OF CIRCULAR STATIC EXTERNAL FIXATION; Surgeon: Alena Mora DPM; Location: [facility] OR; Service: Podiatry RT FOOT SURGERY Right TUMMY TUCK N/A Family History Problem Relation Age of Onset Heart disease Mother Heart disease Father Heart disease Brother Diabetes Sister Social History Tobacco Use Smoking status: Never Smoker Smokeless tobacco: Never Used Substance Use Topics Alcohol use: Yes Comment: occassionally mostly beer Drug use: Never The following portions of the patient's history were reviewed and updated as appropriate: allergies, current medications, past family history, past medical history, past social history, past surgicalhistory and problem list. Objective: BP 116/71 (BP Location: Left arm, Patient Position: Lying) Pulse 80 Temp 98.7 F (37.1 C) (Oral) Resp 12 Ht 5' 11 Wt 118 kg (260 lb 2.3 oz) SpO2 91% BMI 36.28 kg/m Wt Readings from Last 3 Encounters: 12/12/19 118 kg (260 lb 2.3 oz) 11/30/19 128 kg (282 lb 3 oz) 11/20/19 129.4 kg (285 lb 4.4 oz) Physical Exam: Physical Exam Constitutional: He is oriented to person, place, and time. He appears well- developed and well-nourished. HENT: Head: Normocephalic and atraumatic. Eyes: Pupils are equal, round, and reactive to light. Conjunctivae are normal. Neck: Normal range of motion. Neck supple. No thyromegaly present. Cardiovascular: Normal rate, regular rhythm, normal heart sounds and intact distal pulses. Pulmonary/Chest: Effort normal and breath sounds normal. No respiratory distress. He has no wheezes. Abdominal: Soft. Bowel sounds are normal. He exhibits no distension. Genitourinary: Genitourinary Comments: Schulte in place Musculoskeletal: General: Edema (BLE) present. Comments: Right foot wrapped with ZECHARIAH bandage. External fixator in place. Left foot in diabetic shoe, not examined by this provider Neurological: He is alert and oriented to person, place, and time. Skin: Skin is warm and dry. Psychiatric: He has a normal mood and affect. His behavior is normal. Judgment and thought content normal. Laboratory Review: BP 116/71 (BP Location: Left arm, Patient Position: Lying) Pulse 80 Temp 98.7 F (37.1 C) (Oral) Resp 12 Ht 5' 11 Wt 118 kg (260 lb 2.3 oz) SpO2 91% BMI 36.28 kg/m Lab Results Component Value Date HGBA1C 8.8 (H) 11/27/2019 Glucose (mg/dL) Date Value 12/12/2019 167 (H) Creatinine (mg/dL) Date Value 12/12/2019 0.89 Lab Results Component Value Date CHOL 115 11/27/2019 TRIG 177 (H) 11/27/2019 HDL 28 (L) 11/27/2019 LDLCALC 52 11/27/2019 Lab Results Component Value Date TSH 1.63 11/27/2019 No results found for: FREET4 Lab Results Component Value Date WBC 4.12 (L) 12/12/2019 HGB 10.8 (L) 12/12/2019 HCT 35.6 (L) 12/12/2019 MCV 86.2 12/12/2019 PLT 203 12/12/2019 This SmartLink has not been configured with any valid records. This SmartLink has not been configured with any valid records. Laboratory and Additional Data Reviewed: Laboratory 12/15/19 8:15 AM Medications 12/15/19 8:15 AM Transcriptions 12/15/19 8:15 AM Thank you for this consultation, we will continue to follow this patient with you. Prachi Frankel PA-C * Helena Glass LPN - 12/15/2019 7:14 AM EDT Date: 12/15/2019 New labs/results as of last note Update from previous note Tmax: 98.7 Urine Output: 1900 Stool: not recorded Current Antibiotics: Merrem 1,000 mg IV every 12 Hours Previous Antibiotic: Rocephin 2 gm IV every 24 Hours Ancef 2,000 mg IV every 8 Hours Pre/Post Procedure I have personally reviewed the labs and results Test results Laboratory and Additional Data Reviewed: Current Cultures: 12/10/2019 Right Foot Wound Aerobic Culture: Normal Chalino After 48 Hours. Final 12/10/2019 Right foot wound, anaerobic culture: No anaerobic growth at 2 days. Final 12/08/2019 Urine Aerobic Culture: No Growth (<1,000 CFU/mL). Final. 12/07/2019 Urine Aerobic Culture on arrival to Nursing Rehab Unit: No Growth (<1,000 CFU/mL). Final. 12/02/2019 Right Foot Tissue Aerobic Culture: Normal Chalino After 48 Hours. Final. 12/02/2019 Right Foot Tissue AFB Culture: No Acid Fast Bacilli Seen. Preliminary. 12/02/2019 Right Foot Tissue Anaerobic Culture: No Anaerobic Growth at 2 Days. Final. 12/02/2019 Right Foot Tissue Fungus Culture: Fungal Culture in Progress. Preliminary. 12/01/2019 Blood Culture #1: No Growth After 5 Days. Final. 12/01/2019 Blood Culture #2: No Growth After 5 Days. Final. 11/30/2019 Right Foot Wound Aerobic Culture: Normal Chalino After 48 Hours. Final. 11/21/2019 Left Leg Wound Aerobic Culture: Normal Chalino After 48 Hours. Final. 11/20/2019 Right Foot Tissue Aerobic Culture: Moderate Growth Enterobacter cloacae complex, S=Youssef Sensitive. Final. 11/20/2019 Right Foot Tissue Anaerobic Culture: No Anaerobic Growth at 2 Days. Final. 11/20/2019 Right Foot Bone Aerobic Culture: Light Growth Enterobacter Cloacae Complex, S=Youssef Sensitive. Final. 11/20/2019 Right Foot Bone Anaerobic Culture: No Anaerobic Growth at 2 Days. Final * Bhakti Shields, OT - 12/15/2019 7:07 AM EDT OCCUPATIONAL THERAPY Daily Progress Note Therapy Precautions Orthotic Devices: Yes Lower Extremity: External Fixator Weight Bearing Status: X RLE: Non Wt bearing LLE: Wt bearing as tolerated General Rehab Precautions: Fall risk Cognition Overall Cognitive Status: Within Functional Limits Arousal/Alertness: Appropriate responses to stimuli Orientation Level: Oriented X4 Executive functioning: WFL Safety Judgment: Good awareness of need for safety Problem Solving: Able to problem solve independently Attention: Attends to quiet environment Hearing Status: WFL Social Interaction: WFL Comments: Pt. very cooperative throughout session. Skilled Intervention: Pt. followed all multi-step commands throughout session. ADL/IADL Feeding: Independent Grooming : Modified independence UE Dressing: Independent LE Dressing: Modified independence Skilled Intervention: Pt completes dressing tasks while seated EOB, Mod Ind for management of LB clothing by lateral weight shifting to manage over hips. Grooming tasks performed from w/c level with Mod Ind. Bed Mobility Rolling: Modified independence Supine to Sit: Modified independence Functional Transfers Bed to Chair Transfers: Modified [place](lateral transfer) Skilled Intervention: Lateral transfer from bed to w/c completed with Mod Ind demonstrated for transfer. Pt able to remove and apply all armrest and leg rests without difficulty or cues. Exercise Seated Exercise: Remainder of Theraband exercises are reviewed with patient for HEP completion to maintain UB strength. Use of firm green resistive band for exercises, completing 2 sets of 15 reps each of biceps, triceps, lat pull downs, and overhead PNF patterns bilaterally. Illustrated handout issued to patient with Theraband for home use. No questions reported for HEP. Interventions Balance Training: Sitting reaching activities Visual/Perceptual Training: Eye-hand coordination Skilled Intervention: Dynavision completed from w/c level to improve BUE strength in sustained and quick-paced overhead reaching x4 min duration. Pt completes task with added 2 lb cuff weights bilaterally, reaching 190 targets. Fatigue acknowledged by end of task. Home Living Type of Home: House Home Layout: One level, Able to live on main level with bedroom/bathroom, Ramped entrance Bathroom Shower/Tub: Tub/shower unit Bathroom Toilet: Standard Bathroom Equipment: Tub transfer bench, Hand-held shower Bathroom Accessibility: Accessible via walker Home Equipment: Wheeled Walker, Wheelchair-manual(mayco rea, ) Additional Comments: Just recently was at [facility] for therapy Prior Level of Function Level of [place]: Independent with ADLs and functional transfers, Independent with homemaking with ambulation Lives With: Alone Receives Help From: Family ADL Assistance: Independent Homemaking Assistance: Independent Vocational: On disability Leisure: (cooking, shopping sports/electronics, target shoot, read, ) Comments: likes to build 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 Exit Protocol Followed: Yes For complete objective data, detailed plan of care and patient education refer to: OT EVALUATION flow sheet, OT TREATMENT flow sheet, patient Plan of Care, Plan of Care progress note, and Patient Education. * Octavio Koch SCRAP STRIPPER HAND - 12/14/2019 4:06 PM EDT PHYSICAL THERAPY Daily Progress Note Pt reported he intends to use the slide board to transfer when home. Therapy Precautions Therapy Precautions Orthotic Devices: Yes Lower Extremity: External Fixator Weight Bearing Status: X RLE: Non Wt bearing LLE: Wt bearing as tolerated General Rehab Precautions: Fall risk Transfers Transfers Skilled Intervention: independent with slide board transfers Exercise Exercises Seated Exercises: nustep for 15 min at level 6. He completed richardson scott there and trunk and all extrems therex while seated. He used a 9 lbs weight for arm therex and had a 5 lbs wt on is left ankle for leg therex. Home Living Home Living Type of Home: House Home Layout: One level, Able to live on main level with bedroom/bathroom, Ramped entrance Bathroom Shower/Tub: Tub/shower unit Bathroom Accessibility: Accessible via walker Home Equipment: Wheeled Walker, Wheelchair-manual(mayco rea, ) Additional Comments: Just recently was at [facility] for therapy Prior Level of Function Prior Function Level of [place]: Independent with ADLs and functional transfers, Independent with homemaking with ambulation Lives With: Alone Receives Help From: Family ADL Assistance: Independent Homemaking Assistance: Independent Vocational: On disability Leisure: (cooking, shopping sports/electronics, target shoot, read, ) Comments: likes to build 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 Exit Protocol Followed: Yes For complete objective data, detailed plan of care and patient education refer to: PT EVALUATION flow sheet, PT TREATMENT flow sheet, patient Plan of Care, Plan of Care progress note, and Patient Education. * Octavio Koch PTA - 12/14/2019 3:18 PM EDT PHYSICAL THERAPY Daily Progress Note Therapy Precautions Therapy Precautions Orthotic Devices: Yes Lower Extremity: External Fixator Weight Bearing Status: X RLE: Non Wt bearing LLE: Wt bearing as tolerated General Rehab Precautions: Fall risk Transfers Transfers Skilled Intervention: Pt is independent with slide board transfers Gait/Locomotion Gait / Locomotion Wheelchair Mobility: Stand by assistance Wheelchair distance: 450 Feet Skilled Intervention: Pt instructed to ascend ramps backwards. Exercise Exercises Seated Exercises: Pt completed tower column shoulder depressor and shoulder retraction therex. He completed 3 sets of 20 on the richardson scott. Home Living Home Living Type of Home: House Home Layout: One level, Able to live on main level with bedroom/bathroom, Ramped entrance Bathroom Shower/Tub: Tub/shower unit Bathroom Accessibility: Accessible via walker Home Equipment: Wheeled Walker, Wheelchair-manual(mayco ahujaooter, ) Additional Comments: Just recently was at [facility] for therapy Prior Level of Function Prior Function Level of [place]: Independent with ADLs and functional transfers, Independent with homemaking with ambulation Lives With: Alone Receives Help From: Family ADL Assistance: Independent Homemaking Assistance: Independent Vocational: On disability Leisure: (cooking, shopping sports/electronics, target shoot, read, ) Comments: likes to build 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 Exit Protocol Followed: Yes For complete objective data, detailed plan of care and patient education refer to: PT EVALUATION flow sheet, PT TREATMENT flow sheet, patient Plan of Care, Plan of Care progress note, and Patient Education. * Alena Mora DPM - 12/14/2019 2:37 PM EDT Podiatry Inpatient Follow-up Alena Mora DPM [facility] Patient: Dyllan Huertas Date of : 1960 (59 y.o.) PCP: Rohit Aguilar MD ASSESSMENT/PLAN: Dyllan Huertas 59 y.o. male is POD#13 - status post irrigation and debridement with reclosure of right plantar wound and adjustment of external fixator construct (DOS: 12/01/2019 - Dr. Mora) Status post right midfoot wedge resection and application of external fixator for Charcot reconstruction (Date of surgery 11/20/2019 -Dr. Mora). Plan: Patient was seen and evaluated. Discussed all clinical findings. He is doing very well today Continue IV antibiotics per Dr. Awad's recommendation Dressing was changed today with Nursing. All pins were cleaned. Patient can continue physical therapy Strict NWB to right lower extremity at all times WBAT to left lower extremity in good supportive shoes No need for dressing change tomorrow. Will return on Wednesday for follow up evaluation. Nurses are okay to change dressing on Wednesday without my presence. See orders for details. Please call with any questions or concerns regarding this patient's care. Alena Mora DPM, MSBS Podiatric Physician and Surgeon [phone] SUBJECTIVE: History Since Last Visit: Patient is a pleasant 59-year-old male who is status post irrigation and debridement with re-closure of right plantar ulceration, and adjustment of external fixator construct. He states that he is doing well. No pedal complaints. No pain. No fevers, nausea, vomiting, chestpain, shortness of breath, or any other constitutional symptoms. Interpretation of Testing: I personally reviewed the labs and agree with the interpretation(s). Review of Systems: Constitutional:No fever, no weight loss Resp:No dyspnea. No wheezing Endo:No polyuria Allergic/Immunologic:No hives Psych:No unusual mood swings All other systems reviewed and negative other than HPI OBJECTIVE: Physical Examination: BP 130/75 Pulse 90 Temp 99 F (37.2 C) (Oral) Resp 16 Ht 5' 11 Wt 118 kg (260 lb 2.3 oz) SpO2 96% BMI 36.28 kg/m Vascular: DP and PT pulses are palpable 2/4. Cap refill time is brisk to distal digits. Skin temperature is warm to warm from proximal tibial tuberosity to distal digits. Edema much improved from right foot. Neuro: Gross sensation is intact. Protective sensation is absent. Dermatologic: Surgical incision site is well coapted with sutures intact with some maceration to incision. No erythema, edema, or any acute signs of infection. All pin sites are dry without erythema or edema. No drainage from pin sites. Musculoskeletal: Patient is able to wiggle digits. Compartments are soft and compressible. No calf pain. Laboratory and Additional Data Reviewed: Reviewed 12/16/19 6:38 AM: Laboratory, Microbiology, Medications and Transcriptions * Helena Sheldon CNP - 12/14/2019 1:42 PM EDT [facility] Medicine Inpatient Consult Follow-up 12/14/2019 Helena Sheldon, JUDD Patient: Dyllan Huertas Date of : 1960 (59 y.o.) PCP: Rohit Aguilar MD Referring Provider: Sinai Lopez* Consult: Alisa Singh MD: Hospitalist assistance with medical management ASSESSMENT/PLAN: Principal Problem: Osteomyelitis (HCC) Active Problems: 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) JAYDEN (obstructive sleep apnea) Mixed hyperlipidemia Benign prostatic hyperplasia with urinary retention Essential hypertension S/P foot surgery, right S/P foot surgery, right Assessment & Plan Dr. Mora podiatry consulted to manage wound. Extensive wound care is needed. Non wt bearing. Essential hypertension Assessment & Plan Monitor blood pressure per shift. Check kidney function. Continue coreg Benign prostatic hyperplasia with urinary retention Assessment & Plan Has been straight cathing at home. Follows with Dr. Izquierdo. Bladder training, remove schulte, bladder scan and straight cath. Pt has no bladder sensation Mixed hyperlipidemia Assessment & Plan Continue lipitor and fenofibrate. Uses crestor at home. Monitor liver function JAYDEN (obstructive sleep apnea) Assessment & Plan Encourage pt to wear cpap. Wear nasal cannula at 2L at night if he refuses Cpap 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) Assessment & Plan Consult endocrinology. DM has not been well controlled and the infection is making it worse. Monitor blood glucose ACHS, continue lantus, preprandial humalog, and sliding scale. Diabetic diet * Osteomyelitis (HCC) Assessment & Plan Consult ID and continue IV antibiotics. Non wt bearing on right foot. 12/07 Dr. Mora came and had nurse change leg dressing on his left foot with the external fixator. It took over an hour to clean and wrap each pin. Pt tolerated well. Compliant with therapy. Continues antibiotics 12/08 Afebrile, continues with antibiotic therapy DM being managed by endocrinology. Blood pressure is stable. Complaint with therapy 12/10 Glucose is becoming controlled. External fixator is intact No signs of infection Blood pressure is controlled New culture taken of wound due to some drainage. Dr. Andrey awad waiting for results 12/11 Blood glucose is controlled. Angelina Emanuel has changed antibiotic to Merepenem Pain is controlled. Constipation is resolved, metamucil has been started. Blood pressure is controlled. Afebrile 12/12 Making good progress with stand pivots. BP and HR stable. Has not had a BM today. But is taking metamucil daily, so he feels he can go tomorrow. Left leg wrapping of external fixator 12/13 Bladder training is continuing. Pt has been self cathing once at night for 4 years. He was previously able to void during the day. Will bladder train, start flomax and self cath, set up supplies upon discharge and follow up with DR Izquierdo, urologist. BP and HR stable Meropenem continues per ID Right foot dressing intact around external fixator Gaining strength in isela arms and left leg for transfers. SUBJECTIVE: History Since Last Visit: denies pain Current Scheduled Meds: aspirin 162 mg Oral Daily atorvastatin 40 mg Oral Nightly calcium carbonate 1,000 mg Oral Daily carvediloL 12.5 mg Oral BID docusate sodium 100 mg Oral Daily fenofibrate 160 mg Oral Daily with breakfast gabapentin 300 mg Oral Q8H LESLEY insulin glargine 35 Units Subcutaneous BID lispro insulin 0-15 Units Subcutaneous at bedtime insulin lispro 0-30 Units Subcutaneous TID AC levothyroxine 112 mcg Oral Daily magnesium oxide 400 mg Oral Daily melatonin 10 mg Oral at bedtime meropenem 1,000 mg Intravenous Q12H metFORMIN 1,000 mg Oral BID with meals psyllium husk 1 packet Oral Daily tamsulosin 0.4 mg Oral After evening meal Review of Systems: All other systems reviewed and negative other than HPI OBJECTIVE: Physical Examination: Vital Signs: BP 104/70 (BP Location: Left arm, Patient Position: Sitting) Pulse 75 Temp 98.2 F (36.8 C) (Oral) Resp 12 Ht 5' 11 Wt 118 kg (260 lb 2.3 oz) SpO2 95% BMI 36.28 kg/m Physical Exam General Appearance: Alert, well appearing, and in no acute distress. HEENT: Head - Normocephalic, atraumatic. Eyes - ALEKS bilaterally and EOMI. Ears - normal external appearance, hearing intact. Nose - normal, no erythema. Throat - mucous membranes moist, pharynx without lesions. Neck: Supple, trachea midline. Cardiovascular: S1, S2 normal. No murmurs, rubs, clicks or gallops appreciated. No pedal edema. Respiratory: Lungs clear to auscultation, no wheezes, rales or rhonchi heard. Abdomen: Soft, non-tender, normal bowel sounds, non-distended, no masses or organomegaly appreciated. Neurological: Limited movement in lower ext. Numbness from knee down. Musculoskeletal: Right foot s/p surgery, swollen. Left foot swollen from surgery history Skin: Normal coloration and turgor. No rashes. External fixator with large incision, on right foot Psych: Alert, oriented x 3. Normal mood and affect. Laboratory and Additional Data Reviewed: Results/Medications Reviewed 12/14/19 1:42 PM: Results from last 7 days Lab Units 12/12/19 0611 SODIUM mmol/L 140 POTASSIUM mmol/L 4.3 CHLORIDE mmol/L 106 BUN mg/dL 26* CREATININE mg/dL 0.89 GLUCOSE mg/dL 167* CALCIUM mg/dL 9.7 Results from last 7 days Lab Units 12/12/19 0611 WBC K/mcL 4.12* HGB g/dL 10.8* HCT % 35.6* PLT K/mcL 203 Results from last 7 days Lab Units 12/12/19 0611 ALK PHOS U/L 83 BILIRUBIN TOTAL mg/dL 0.3 TOTAL PROTEIN g/dL 6.7 ALTR U/L 52 AST U/L 35 CULTURES: Reviewed 12/14/19 1:42 PM Radiology/Imaging: Reviewed 12/14/19 1:42 PM * Eli Hassan, TERRITORY MANAGER - 12/14/2019 11:15 AM EDT Recreational Therapy Daily Note Patient attended individual session this date to promote increased activity tolerance, cognitive exercise, positive leisure participation, awareness of leisure adaptations and/or resources, application of positive coping skills, positive social interaction. Patient participated with maximal effort.Patient was introduced to a card game called [employer]. Patient demonstrated interest as noted by his attention and effort. He demonstrated good understanding of the game with receptiveness to cues for improved strategy. Affect pleasant. Patient talked some about being a loner and enjoying being home alone. This software writer inquired about a network of friends. Patient recalled a situation in which his f ormer friends went out seeking trouble while drinking, commenting that he left the situation whenhe sensed that their attitude was worsening. He commented that those friends received charges fortheir bx toward police. Patient also talked about a best friend who moved away after serving timein a local prison for a conviction of child pornography (which the friend claimed to be innocent from). Patient did cite his sister and brother as family support persons. He could not cite anyone whowould play cards with him at home. Patient's affect brightened as he did well playing the game. He expressed enjoyment. Continue with TR treatment goals as stated in TR assessment. Treatment time: 7295-3998; 40 min Exit protocol followed: Exception: Remained in TR tx area (dining room) with peer and PSA present to await lunch. * Sinai Lopez MD - 12/14/2019 10:47 AM EDT Physical Medicine & Rehabilitation Inpatient Progress 12/14/2019 Sinai Lopez MD [facility] Patient: Dyllan Huertas Date of : 1960 (59 y.o.) PCP: Rohit Aguilar MD Date of Admission: 12/06/2019 ASSESSMENT/PLAN: Rehabilitation Diagnosis: Rehab Impairement Code (JOSE): Ortho (12/05/19 07) Ortho IGC: 08.9 - Other Orthopaedic (12/05/19 07) Discharge Barriers: Mobility, ADL, Self Care Impairment: Intensive PT/OT Decreased Endurance: Intensive PT/OT , patient requires AFO on left lower limb discussed with patient and PT Skin: Turn every 2 hours, monitor for skin breakdown per rehabilitation nursing, dressing changes per podiatry Nutritional Status: Nutrition Consult Pulmonary Rehabilitation: Encourage incentives spirometry and deep breathing exercises Neurogenic Bladder: remove schulte monitor left lower limb charco ankle -obtain Xray -screw broken in left lower limb - per podiatry no change in acitivty restrictions Mixed hyperlipidemia Assessment & Plan Statin. 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 Consult endocrine * Osteomyelitis (HCC) Assessment & Plan ID following, podiatry following. See rehab plan. Therapy Updates: patient has progressed to SBA with bed mobility Attestation: Considering all of the information above, it is my best judgment that this patient continues to require an intensive rehabilitation multidisciplinary program as previously described due to the necessity of medical management, rehabilitation needs, and complexity of nursing care under the supervision of a rehabilitation physician (patient requires at least 3 rehab physician visits per week). It can be reasonably expected that patient will participate in and benefit from a multidisciplinary team approach to maximize functional independence that is best served with acute inpatient rehabilitationas opposed to lower level of care. The teams needed are: Rehabilitation Nursing for medication management, bowel/bladder care, skin care, and respiratory care Physical Therapy for strengthening, endurance, mobility, gait and balance training, ROM, ADL's, andpatient/family training Occupational Therapy for strengthening, endurance, mobility, gait and balance training, ROM, ADL's,and patient/family training Rehabilitation Psychology for coping Therapeutic Recreation for community re-entry Social Work for integrated social support and discharge planning SUBJECTIVE: Date of Admission: 12/06/2019 Informant(s): Patient History of Present Illness: Patient reports that therapies are going well. He reports that he continues to not have bladder sensation. He saw Dr. Izquierdo in the past. Review of Systems: All pertinent positives and negative in HPI/Interval History. All others negative. Allergies: Patient has no known allergies. Current HOSPITAL Medications: Current Facility-Administered Medications Medication Dose Route Frequency Provider Last Rate Last Dose acetaminophen (TYLENOL) tablet 650 mg 650 mg Oral Q4H PRN Helena Sheldon CNP 650 mg at 12/09/19 2142 albuterol (PROVENTIL) 2.5 mg /3 mL (0.083 %) nebulizer solution 2.5 mg 2.5 mg Inhalation Q2H PRN Helena Sheldon CNP aspirin EC tablet 162 mg 162 mg Oral Daily Helena Sheldon CNP 162 mg at 12/14/19 0838 atorvastatin (LIPITOR) tablet 40 mg 40 mg Oral Nightly Helena Sheldon CNP 40 mg at 12/13/19 2204 bisacodyL (DULCOLAX) suppository 10 mg 10 mg Rectal Daily PRN Helena Sheldon CNP 10 mg at 12/08/19 2242 calcium carbonate (TUMS) chewable tablet 1,000 mg 1,000 mg Oral Daily Helena Sheldon CNP 1,000mg at 12/14/19 0839 carvediloL (COREG) tablet 12.5 mg 12.5 mg Oral BID Helena Sheldon CNP 12.5 mg at 12/14/19 0839 docusate sodium (COLACE) capsule 100 mg 100 mg Oral Daily Helena Sheldon CNP 100 mg at 12/14/19 0839 docusate sodium (COLACE) capsule 100 mg 100 mg Oral BID PRN Helena Sheldon CNP 100 mg at 12/13/19 1712 fenofibrate tablet 160 mg 160 mg Oral Daily with breakfast Helena Sheldon CNP 160 mg at 12/14/19 0839 gabapentin (NEURONTIN) capsule 300 mg 300 mg Oral Q8H LESLEY Helena Sheldon CNP 300 mg at 12/14/19 0502 insulin glargine (LANTUS) injection 35 Units 35 Units Subcutaneous BID Andrés Andre CNP 35 Units at 12/14/19 0844 insulin lispro (HumaLOG) injection 0-15 Units 0-15 Units Subcutaneous at bedtime Helena Sheldon CNP 0 Units at 12/13/19 2203 insulin lispro (HumaLOG) injection 0-30 Units 0-30 Units Subcutaneous TID AC Andrés Andre CNP 12 Units at 12/14/19 0839 levothyroxine (SYNTHROID, LEVOTHROID) tablet 112 mcg 112 mcg Oral Daily Helena Sheldon CNP 112mcg at 12/14/19 0502 magnesium oxide (MAG-OX) tablet 400 mg 400 mg Oral Daily Helena Sheldon CNP 400 mg at 12/14/200744 melatonin Tab 10 mg 10 mg Oral at bedtime Helena Sheldon CNP 10 mg at 12/13/19 2204 meropenem (MERREM) 1000 mg in sodium chloride (NS) 0.9% 50 mL (premix) 1,000 mg Intravenous Q12H Maria Isabel Awad MD Stopped at 12/14/19 0447 metFORMIN (GLUCOPHAGE) tablet 1,000 mg 1,000 mg Oral BID with meals Helena Sheldon CNP 1,000 mg at 12/14/19 0838 naloxone (NARCAN) injection 0.1 mg 0.1 mg Intravenous PRN Helena Sheldon CNP And naloxone (NARCAN) injection 0.4 mg 0.4 mg Intravenous PRN Helena Sheldon CNP nitroGLYCERIN (NITROSTAT) SL tablet 0.4 mg 0.4 mg Sublingual Q5 Min PRN Helena Sheldon CNP ondansetron (ZOFRAN-ODT) disintegrating tablet 4 mg 4 mg Oral Q6H PRN Helena Sheldon CNP psyllium (METAMUCIL) powder 1 packet 1 packet Oral Daily Kyung K Espinoza, [facility],PharmD 1 packet at 12/14/19 0839 senna (SENOKOT) tablet 8.6 mg 1 tablet Oral BID PRN Helena Sheldon CNP sodium phosphates (FLEETS ADULT) 19-7 gram/118 mL enema 1 each 1 each Rectal Daily PRN Helena Jaimes CNP tamsulosin (FLOMAX) 24 hr capsule 0.4 mg 0.4 mg Oral After evening meal Helena Sheldon CNP 0.4mg at 12/13/19 1712 traZODone (DESYREL) tablet 50 mg 50 mg Oral Nightly PRN Helena Sheldon CNP OBJECTIVE: Physical Examination: BP 104/70 (BP Location: Left arm, Patient Position: Sitting) Pulse 75 Temp 98.2 F (36.8 C) (Oral) Resp 12 Ht 5' 11 Wt 118 kg (260 lb 2.3 oz) SpO2 95% BMI 36.28 kg/m GENERAL: General Appearance: In no apparent distress, well nourished HEENT: Normocephalic, atraumatic, neck supple, EOMI, PER Respiratory: On room air, no respiratory distress Cardiovascular: Peripheral pulses palpable, 2+ edema b/l Abdomen: Nontender, nondistended Musculoskeletal: left charcot ankle; s/p right ex-fix and debridement with wound closure; decreasedPROM of left ankle dorsiflexion and plantar flexion. Skin: ZECHARIAH wraps on lower limbs, right lower limb dressing in tact. Psychiatric: Normal mood and affect, appropriate insight and judgement CRANIAL NERVES: II, III: Pupils: PER III, IV, : Eye Movements: Normal (EOMI, No ptosis, No nystagmus) V - Facial Sensation: Normal VII: Face Symmetry & Strength: Normal VIII Hearing: Normal IX, X Palate:: Normal XI - Shoulder Shrug: Normal XII - Tongue Protrusion: Normal GAIT: Unable to walk due to no assistance to safely evaluate COORDINATION & GROSS MOTOR: Abnormal Movements: None Tone: Normal MOTOR - MUSCLE STRENGTH: Right Muscle Strength Left 5 Shoulder Abduction 5 5 Elbow Flexion 5 5 Elbow Extension 5 5 Wrist Extension 5 5 Finger Abduction 5 5 Hip Flexion 5 5 Knee Extension 5 EDDI Knee Flexion 5 EDDI Dorsiflexion 4 EDDI Plantar Flexion 4 MOTOR MARTINO: 5 Normal Power 4 Movement against moderate resistance over a full range of motion 3 Movement against gravity over almost full range of motion 2 Movement with gravity eliminated over almost full range of motion 1 Trace Movement (flicker of contraction visible or palpable) 0 No Movement (no contraction visible or palpable) EDDI Unable to Assess SENSATION: Light Touch: impaired Position Sense: impaired Lab Results Component Value Date ALBUMIN 2.5 (L) 12/12/2019 ALT 52 12/12/2019 AST 35 12/12/2019 BUN 26 (H) 12/12/2019 CALCIUM 9.7 12/12/2019 CL 106 12/12/2019 CHOL 115 11/27/2019 CREATININE 0.89 12/12/2019 GLUCOSE 167 (H) 12/12/2019 HDL 28 (L) 11/27/2019 HCT 35.6 (L) 12/12/2019 HGB 10.8 (L) 12/12/2019 HGBA1C 8.8 (H) 11/27/2019 MG 2.1 11/24/2019 PLT 203 12/12/2019 K 4.3 12/12/2019 NA 140 12/12/2019 TRIG 177 (H) 11/27/2019 WBC 4.12 (L) 12/12/2019 * Maria Isabel Awad MD - 12/14/2019 10:42 AM EDT 12/04/2019 Patient Name: Dyllan Huertas Admit Date: MR #: [id number] : 1960 Physicians: Rohit Aguilar MD (Family); No ref. provider found (Referring) Assessment and Plan: Impression Impression Right foot ulcer status post surgical intervention Severe Charcot deformity status post surgical intervention Enterobacter cloaca infection and gram-negative infection see cultures below RaullTela which is a gram-negative Acute osteomyelitis bone culture on 11/20/2019+ for the same pathogen that was present in January 2019is Enterobacter cloaca pansensitive RAJINDER none on chart 11/24/2019 Osteomyelitis as bone culture is positive from 11/20/2019 for Enterobacter cloaca 11/30/2019 New drainage from the pin site Elevated sed rate Elevated CRP Osteomyelitis right foot 12/01/2019 Osteomyelitis right foot Delayed healing of the plantar foot postop wound Cellulitis of the foot 12/04/2019 Status post surgical intervention with incision and drainage by Dr. Mora on 12/02/2019 cultures now with normal chalino [employer] and fungus negative 12/05/2019 Sed rate 85 CRP 85 Per rehab physician there is a risk for the left ankle issues especially with diabetic neuropathy in the left foot and he has had right foot surgery 12/06/2019 OR cultures negative elevated CRP could be just postop We will continue IV antibiotics as planned till January 01 Rocephin 2 g every 24 hours 12/11/2019 Right foot wound with some maceration drainage 12/12/2019 CRP improving Plan 12/14/2019 Continue IV meropenem till January 01 if he can manage to do that Await a picture by podiatry upon dressing change today I have discussed with podiatry 12/12/2019 Patient tolerating the meropenem Will await Dr. Mora to check the dressing on the wound at her next rounds Discontinue Rocephin Start meropenem 1 g IV every 12 for the Enterobacter and the other gram-negative that he had seen in the cultures especially with the extensive surgery that was done and he had some drainage on the weekend Continue IV antibiotics till January 01 CBC CMP sed rate CRP Will discuss with Dr. Lopez and Dr. Mora 12/08/2019 Rocephin continued till January 01 Urinary retention to be evaluated by Dr. Lopez Will await for Dr. Mora to do the dressings 12/07/2019 Rocephin 2 g IV 24 hours till January 01 Discontinue Schulte catheter CBC CMP sed rate CRP on Wednesday12/06/2019 Rocephin 2 g to 24 hours till January 01 CBC CMP sed rate CRP periodically Transfer to rehab he has been accepted Will follow the patient in rehab with Dr. Lopez and Dr. Mora 12/05/2019 Rocephin 2 g IV 24 hours continue till January 01 because of the second surgery Elevated sed rate CRP will be followed Await transfer to rehab if approved and bed available 12/04/2019 Rocephin 2 g IV every 24 hours CBC CMP sed rate CRP Rehab referral with Dr. Lopez here if possible We will discuss with podiatry I have discussed with hospitalist OR cultures normal chalino negative AFB and fungus Blood cultures negative so far 12/01/2019 Continue Rocephin till further cultures available CBC CMP sed rate CRP Blood cultures x2 half an hour apart He did bleed well even in the wound clinic yesterday at some point will order arterial Dopplers I have discussed with podiatry at length 11/30/2019 Culture the pin site that is bleeding and draining Follow-up CBC Liver function test Rocephin 2 g IV every 24 hours continue till December 18 May need to go up to additional 2 weeks afterMar which will be January 01 we will decide based on lab results and clinical response If the culture of the pin site shows any additional pathogens may need to readmit for additional IVantibiotics and streamlining treatment Revisit 1 week both I have discussed with podiatry Chief Complaint/Reason for Visit: I am seeing this patient at the request of Dr. Boogie Phan MD. I have reviewed the current hospital record, available laboratory, cardiology and imaging studies as well as available out patient records. History of Present Illness: Admission H&P by Boogie Phan MD on 11/30/2019: Dyllan Huertas is a 59 y.o. male presenting from home with h/o diabetes on disability since 2014 related to a Charcot foot and diabetes developed an ulcer in the beginning of 2018 was being followed by Dr. Robles at the office we have cultures from last year in January with Enterobacter and since then culture with gram-negative bacteria also was seen by Dr. Mora was found to have severe Charcot a corrective surgery was done with placement of an external fixator on 11/20. Today at wound clinic follow up was found to have increased drainage from one of the pin sites, being admitted for continued IV ATB and possible OR/ exploration in am. Exam: Tmax: 99 Urine Output: 2000 Stool: not recorded PACU Vitals 12/14/19 0815 BP: 104/70 Pulse: 75 Resp: 12 Temp: 98.2 F (36.8 C) SpO2: 95% Allergies: no known allergies. Current Facility-Administered Medications: acetaminophen (TYLENOL) tablet 650 mg, 650 mg, Oral, Q4H PRN, Helena Sheldon CNP, 650 mg at 12/09/19 2142 albuterol (PROVENTIL) 2.5 mg /3 mL (0.083 %) nebulizer solution 2.5 mg, 2.5 mg, Inhalation, Q2H PRN, Helena Sheldon CNP aspirin EC tablet 162 mg, 162 mg, Oral, Daily, Helena Sheldon CNP, 162 mg at 12/14/19 0838 atorvastatin (LIPITOR) tablet 40 mg, 40 mg, Oral, Nightly, Helena Sheldon CNP, 40 mg at 12/13/19 2204 bisacodyL (DULCOLAX) suppository 10 mg, 10 mg, Rectal, Daily PRN, Helena Sheldon CNP, 10 mg at12/08/19 2242 calcium carbonate (TUMS) chewable tablet 1,000 mg, 1,000 mg, Oral, Daily, Helena Sheldon CNP, 1,000 mg at 12/14/19 0839 carvediloL (COREG) tablet 12.5 mg, 12.5 mg, Oral, BID, Helena Sheldon CNP, 12.5 mg at 12/14/200739 docusate sodium (COLACE) capsule 100 mg, 100 mg, Oral, Daily, Helena Sheldon CNP, 100 mg at 12/14/19 0839 docusate sodium (COLACE) capsule 100 mg, 100 mg, Oral, BID PRN, Helena Sheldon CNP, 100 mg at 12/13/19 1712 fenofibrate tablet 160 mg, 160 mg, Oral, Daily with breakfast, Helena Sheldon CNP, 160 mg at 12/14/19 0839 gabapentin (NEURONTIN) capsule 300 mg, 300 mg, Oral, Q8H LESLEY, Helena Sheldon CNP, 300 mg at 12/14/19 0502 insulin glargine (LANTUS) injection 35 Units, 35 Units, Subcutaneous, BID, Andrés Andre CNP, 35 Units at 12/14/19 0844 insulin lispro (HumaLOG) injection 0-15 Units, 0-15 Units, Subcutaneous, at bedtime, Helena Sheldon CNP, 0 Units at 12/13/19 2203 insulin lispro (HumaLOG) injection 0-30 Units, 0-30 Units, Subcutaneous, TID AC, Andrés Andre, JUDD, 12 Units at 12/14/19 0839 levothyroxine (SYNTHROID, LEVOTHROID) tablet 112 mcg, 112 mcg, Oral, Daily, Helena Sheldon CNP, 112 mcg at 12/14/19 0502 magnesium oxide (MAG-OX) tablet 400 mg, 400 mg, Oral, Daily, Helena Sheldon CNP, 400 mg at 12/14/19 0844 melatonin Tab 10 mg, 10 mg, Oral, at bedtime, Helena Sheldon CNP, 10 mg at 12/13/19 2204 meropenem (MERREM) 1000 mg in sodium chloride (NS) 0.9% 50 mL (premix), 1,000 mg, Intravenous, Q12H, Maria Isabel Awad MD, Stopped at 12/14/19 0447 metFORMIN (GLUCOPHAGE) tablet 1,000 mg, 1,000 mg, Oral, BID with meals, Helena Sheldon CNP, 1,000 mg at 12/14/19 0838 naloxone (NARCAN) injection 0.1 mg, 0.1 mg, Intravenous, PRN AND Notify physician, , , Until Discontinued AND naloxone (NARCAN) injection 0.4 mg, 0.4 mg, Intravenous, PRN, Helena Sheldon CNP nitroGLYCERIN (NITROSTAT) SL tablet 0.4 mg, 0.4 mg, Sublingual, Q5 Min PRN, Helena Sheldon CNP ondansetron (ZOFRAN-ODT) disintegrating tablet 4 mg, 4 mg, Oral, Q6H PRN, Helena Sheldon CNP psyllium (METAMUCIL) powder 1 packet, 1 packet, Oral, Daily, Kyung Doran [facility],PharmD, 1 packet at 12/14/19 0839 senna (SENOKOT) tablet 8.6 mg, 1 tablet, Oral, BID PRN, Helena Sheldon CNP sodium phosphates (FLEETS ADULT) 19-7 gram/118 mL enema 1 each, 1 each, Rectal, Daily PRN, Catarina Sheldon CNP tamsulosin (FLOMAX) 24 hr capsule 0.4 mg, 0.4 mg, Oral, After evening meal, Helena Sheldon CNP, 0.4 mg at 12/13/19 1712 traZODone (DESYREL) tablet 50 mg, 50 mg, Oral, Nightly PRN, Helena Sheldon CNP PMH/PSH/SH/FH reviewed, no change except: Status post surgical intervention by Dr. Mora on 12/02/2019 12/05/2019 Patient was seen by rehab physician rehab evaluation in progress patient's left ankle is at risk because of right foot surgery and diabetic neuropathy in the left foot also 12/07/2019 patient is now in rehab Review of Systems: All systems were reviewed and negative except: Denies any fever chills no pain in the right leg and foot 12/06/2019 denies any fever chills or diarrhea 12/08/2019 Schulte had to be reinserted for urinary increase residual 12/11/2019 Dressing was changed by Dr. Mora on Wednesday there was some drainage culture was done there was some maceration culture result is normal chalino Dr. Mora's note was reviewed by mo Medications Reviewed. Chart Reviewed. Exam Findings: Constitutional: HENT: Pupils reactive head: No oral candidiasis Eyes: No icterus Neck: Supple Cardiovascular: Heart S1-S2 2 by systolic murmur present no S3 Murmur Pulmonary/Chest: Clear Abdominal: Soft Musculoskeletal: No calf tenderness on the right leg Neurological: Has diabetic neuropathy with Charcot is able to wiggle the toes Skin postop dressing with Kerlix no drainage noted today no foul odor Patient drain has been removed by Dr. Mora over the weekend There was some maceration seen on the wound site on 12/10/2019 culture is normal chalino Schulte: Bard Schulte catheter with clear urine is being clamped now IV: Midline in the right arm site looks good denies any discomfort other: External fixator in place no drainage noted on the dressing wound to be examined by podiatrytoday Pin sites without any bleeding Wound to be examined by podiatry Laboratory and Additional Data Reviewed: Date: 12/14/2019 New labs/ results as of last note: 12/12/2019 T-Max: 98.6 Output: Urine 2150 ml Stool not recorded Current Antibiotics: Merrem 1,000 mg IV every 12 Hours Previous Antibiotic: Rocephin 2 gm IV every 24 Hours Ancef 2,000 mg IV every 8 Hours Pre/Post Procedure I have personally reviewed the labs and results Test results Laboratory and Additional Data Reviewed: Current Cultures: 12/10/2019 Right Foot Wound Aerobic Culture: Normal [place] After 48 Hours. Final 12/10/2019 Right foot wound, anaerobic culture: No anaerobic growth at 2 days. Final 12/08/2019 Urine Aerobic Culture: No Growth (<1,000 CFU/mL). Final. 12/07/2019 Urine Aerobic Culture on arrival to Nursing Rehab Unit: No Growth (<1,000 CFU/mL). Final. 12/02/2019 Right Foot Tissue Aerobic Culture: Normal Chalino After 48 Hours. Final. 12/02/2019 Right Foot Tissue AFB Culture: No Acid Fast Bacilli Seen. Preliminary. 12/02/2019 Right Foot Tissue Anaerobic Culture: No Anaerobic Growth at 2 Days. Final. 12/02/2019 Right Foot Tissue Fungus Culture: Fungal Culture in Progress. Preliminary. 12/01/2019 Blood Culture #1: No Growth After 5 Days. Final. 12/01/2019 Blood Culture #2: No Growth After 5 Days. Final. 11/30/2019 Right Foot Wound Aerobic Culture: Normal Chalino After 48 Hours. Final. 11/21/2019 Left Leg Wound Aerobic Culture: Normal Chal[place] After 48 Hours. Final. 11/20/2019 Right Foot Tissue Aerobic Culture: Moderate Growth Enterobacter cloacae complex, S=Youssef Sensitive. Final. 11/20/2019 Right Foot Tissue Anaerobic Culture: No Anaerobic Growth at 2 Days. Final. 11/20/2019 Right Foot Bone Aerobic Culture: Light Growth Enterobacter Cloacae Complex, S=Youssef Sensitive. Final. 11/20/2019 Right Foot Bone Anaerobic Culture: No Anaerobic Growth at 2 Days. Final Update from previous note Date: 12/12/2019 New labs/results as of last note Update from previous note Tmax: 99.2 Urine Output: 1600 Stool: not recorded Current Antibiotics: Merrem 1,000 mg IV every 12 Hours Previous Antibiotic: Rocephin 2 gm IV every 24 Hours Ancef 2,000 mg IV every 8 Hours Pre/Post Procedure I have personally reviewed the labs and results Test results Laboratory and Additional Data Reviewed: Labs: CMP 12/12/2019 06:11 Glucose: 167 BUN: 26 Creatinine: 0.89 Sodium: 140 Potassium: 4.3 Total Protein: 6.7 Albumin: 2.5 Alk Phos: 83 AST: 35 ALT: 52 Total Bilirubin: 0.3 CBC 12/12/2019 06:11 WBC: 4.12 RBC: 4.13 Hgb: 10.8 Hct: 35.6 Platelets: 203 Lymphocytes Abs: 0.66 CRP 12/12/2019 06:11 52.4 Current Cultures: 12/10/2019 Right Foot Wound Aerobic Culture: Normal Chalino After 24 Hours. Preliminary. 12/08/2019 Urine Aerobic Culture: No Growth (<1,000 CFU/mL). Final. 12/07/2019 Urine Aerobic Culture on arrival to Nursing Rehab Unit: No Growth (<1,000 CFU/mL). Final. 12/02/2019 Right Foot Tissue Aerobic Culture: Normal Chalino After 48 Hours. Final. 12/02/2019 Right Foot Tissue AFB Culture: No Acid Fast Bacilli Seen. Preliminary. 12/02/2019 Right Foot Tissue Anaerobic Culture: No Anaerobic Growth at 2 Days. Final. 12/02/2019 Right Foot Tissue Fungus Culture: Fungal Culture in Progress. Preliminary. 12/01/2019 Blood Culture #1: No Growth After 5 Days. Final. 12/01/2019 Blood Culture #2: No Growth After 5 Days. Final. 11/30/2019 Right Foot Wound Aerobic Culture: Normal Chalino After 48 Hours. Final. 11/21/2019 Left Leg Wound Aerobic Culture: Normal Chalino After 48 Hours. Final. 11/20/2019 Right Foot Tissue Aerobic Culture: Moderate Growth Enterobacter cloacae complex, S=Youssef Sensitive. Final. 11/20/2019 Right Foot Tissue Anaerobic Culture: No Anaerobic Growth at 2 Days. Final. 11/20/2019 Right Foot Bone Aerobic Culture: Light Growth Enterobacter Cloacae Complex, S=Youssef Sensitive. Final. 11/20/2019 Right Foot Bone Anaerobic Culture: No Anaerobic Growth at 2 Days. Final. Date: 12/11/2019 New labs/results as of last note Update from previous note Tmax: 98.7 Urine Output: 2500 Stool: X1 Current Antibiotics: Rocephin 2 gm IV every 24 Hours until 01/02/2020 Previous Antibiotic: Ancef 2,000 mg IV every 8 Hours Pre/Post Procedure I have personally reviewed the labs and results Test results Laboratory and Additional Data Reviewed: U/A 12/08/2019 Glucose: 150 Blood: Small WBC: 7 Bacteria: Rare Labs: Vitamin D, Total 12/07/2019 04:55 16 B12/Folate 12/07/2019 04:55 B12: 828 Folate: >20.0 Ferritin 12/07/2019 04:55 211 Iron 12/07/2019 04:55 30 CMP 12/07/2019 04:55 Glucose: 243 BUN: 17 Creatinine: 0.86 Sodium: 138 Potassium: 3.9 Total Protein: 6.6 Albumin: 2.4 Alk Phos: 76 AST: 28 ALT: 40 Total Bilirubin: 0.4 CBC 12/07/2019 04:54 WBC: 6.95 Hgb: 11.3 Hct: 36.8 Platelets: 210 Lymphocytes Abs: 0.64 CRP 12/05/2019 07:58 85.3 U/A 12/07/2019 Protein: 30 Glucose: >=500 Blood: Small Leukocyte Esterase: Trace Renal Epithelial: <1 Current Cultures: 12/10/2019 Right Foot Wound Aerobic Culture: Rare WBC. Rare Epithelial Cells. No Organisms Seen. Preliminary. 12/08/2019 Urine Aerobic Culture: No Growth (<1,000 CFU/mL). Final. 12/07/2019 Urine Aerobic Culture on arrival to Nursing Rehab Unit: No Growth (<1,000 CFU/mL). Final. 12/02/2019 Right Foot Tissue Aerobic Culture: Normal Chalino After 48 Hours. Final. 12/02/2019 Right Foot Tissue AFB Culture: No Acid Fast Bacilli Seen. Preliminary. 12/02/2019 Right Foot Tissue Anaerobic Culture: No Anaerobic Growth at 2 Days. Final. 12/02/2019 Right Foot Tissue Fungus Culture: Fungal Culture in Progress. Preliminary. 12/01/2019 Blood Culture #1: No Growth After 5 Days. Final. 12/01/2019 Blood Culture #2: No Growth After 5 Days. Final. 11/30/2019 Right Foot Wound Aerobic Culture: Normal Chal[place] After 48 Hours. Final. 11/21/2019 Left Leg Wound Aerobic Culture: Normal [place] After 48 Hours. Final. 11/20/2019 Right Foot Tissue Aerobic Culture: Moderate Growth Enterobacter cloacae complex, S=Youssef Sensitive. Final. 11/20/2019 Right Foot Tissue Anaerobic Culture: No Anaerobic Growth at 2 Days. Final. 11/20/2019 Right Foot Bone Aerobic Culture: Light Growth Enterobacter Cloacae Complex, S=Youssef Sensitive. Final. 11/20/2019 Right Foot Bone Anaerobic Culture: No Anaerobic Growth at 2 Days. Final. Date: 12/08/2019 New labs/results as of last note Update from previous note Tmax: 99.2 Urine Output: 4950 Stool: not recorded Current Antibiotics: Rocephin 2 gm IV every 24 Hours until 01/02/2020 Previous Antibiotic: Ancef 2,000 mg IV every 8 Hours Pre/Post Procedure I have personally reviewed the labs and results Test results Laboratory and Additional Data Reviewed: U/A 12/08/2019 Glucose: 150 Blood: Small WBC: 7 Bacteria: Rare Labs: Vitamin D, Total 12/07/2019 04:55 16 B12/Folate 12/07/2019 04:55 B12: 828 Folate: >20.0 Ferritin 12/07/2019 04:55 211 Iron 12/07/2019 04:55 30 CMP 12/07/2019 04:55 Glucose: 243 BUN: 17 Creatinine: 0.86 Sodium: 138 Potassium: 3.9 Total Protein: 6.6 Albumin: 2.4 Alk Phos: 76 AST: 28 ALT: 40 Total Bilirubin: 0.4 CBC 12/07/2019 04:54 WBC: 6.95 Hgb: 11.3 Hct: 36.8 Platelets: 210 Lymphocytes Abs: 0.64 CRP 12/05/2019 07:58 85.3 U/A 12/07/2019 Protein: 30 Glucose: >=500 Blood: Small Leukocyte Esterase: Trace Renal Epithelial: <1 Current Cultures: 12/07/2019 Urine Aerobic Culture on arrival to Nursing Rehab Unit: No Growth, Incubation Continued.Preliminary. 12/02/2019 Right Foot Tissue Aerobic Culture: Normal [place] After 48 Hours. Final. 12/02/2019 Right Foot Tissue AFB Culture: No Acid Fast Bacilli Seen. Preliminary. 12/02/2019 Right Foot Tissue Anaerobic Culture: No Anaerobic Growth at 2 Days. Final. 12/02/2019 Right Foot Tissue Fungus Culture: Fungal Culture in Progress. Preliminary. 12/01/2019 Blood Culture #1: No Growth After 5 Days. Final. 12/01/2019 Blood Culture #2: No Growth After 5 Days. Final. 11/30/2019 Right Foot Wound Aerobic Culture: Normal Chal[place] After 48 Hours. Final. 11/21/2019 Left Leg Wound Aerobic Culture: Normal [place] After 48 Hours. Final. 11/20/2019 Right Foot Tissue Aerobic Culture: Moderate Growth Enterobacter cloacae complex, S=Youssef Sensitive. Final. 11/20/2019 Right Foot Tissue Anaerobic Culture: No Anaerobic Growth at 2 Days. Final. 11/20/2019 Right Foot Bone Aerobic Culture: Light Growth Enterobacter Cloacae Complex, S=Youssef Sensitive. Final. 11/20/2019 Right Foot Bone Anaerobic Culture: No Anaerobic Growth at 2 Days. Final. Radiology: Left Ankle X-Ray 12/07/2019 1. A new screw internally fixes the base of the 5th metatarsal to near anatomic alignment, however this screw is broken/fractured. 2. 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 Lateral subluxation of the 2nd through 5th metatarsal bases is again noted, as well as pes planus deformity. 3. Milder arthritis is noted in the tibiotalar joint and subtalar joint. 4. Large calcaneal enthesophytes are noted at the insertion sites of the plantar fascia and Achilles tendon. 5. No acute fracture, or other acute bony abnormality is seen. Date: 12/07/2019 New labs/results as of last note Update from previous note Tmax: 99.1 Urine Output: 1800 Stool: not recorded Current Antibiotics: Rocephin 2 gm IV every 24 Hours until 01/02/2020 Previous Antibiotic: Ancef 2,000 mg IV every 8 Hours Pre/Post Procedure I have personally reviewed the labs and results Test results Laboratory and Additional Data Reviewed: Labs: Vitamin D, Total 12/07/2019 04:55 16 B12/Folate 12/07/2019 04:55 B12: 828 Folate: >20.0 Ferritin 12/07/2019 04:55 211 Iron 12/07/2019 04:55 30 CMP 12/07/2019 04:55 Glucose: 243 BUN: 17 Creatinine: 0.86 Sodium: 138 Potassium: 3.9 Total Protein: 6.6 Albumin: 2.4 Alk Phos: 76 AST: 28 ALT: 40 Total Bilirubin: 0.4 CBC 12/07/2019 04:54 WBC: 6.95 Hgb: 11.3 Hct: 36.8 Platelets: 210 Lymphocytes Abs: 0.64 CRP 12/05/2019 07:58 85.3 U/A 12/07/2019 Protein: 30 Glucose: >=500 Blood: Small Leukocyte Esterase: Trace Renal Epithelial: <1 Current Cultures: 12/02/2019 Right Foot Tissue Aerobic Culture: Normal Chal[place] After 48 Hours. Final. 12/02/2019 Right Foot Tissue AFB Culture: No Acid Fast Bacilli Seen. Preliminary. 12/02/2019 Right Foot Tissue Anaerobic Culture: No Anaerobic Growth at 2 Days. Final. 12/02/2019 Right Foot Tissue Fungus Culture: Fungal Culture in Progress. Preliminary. 12/01/2019 Blood Culture #1: No Growth After 5 Days. Final. 12/01/2019 Blood Culture #2: No Growth After 5 Days. Final. 11/30/2019 Right Foot Wound Aerobic Culture: Normal [place] After 48 Hours. Final. 11/21/2019 Left Leg Wound Aerobic Culture: Normal [place] After 48 Hours. Final. 11/20/2019 Right Foot Tissue Aerobic Culture: Moderate Growth Enterobacter cloacae complex, S=Youssef Sensitive. Final. 11/20/2019 Right Foot Tissue Anaerobic Culture: No Anaerobic Growth at 2 Days. Final. 11/20/2019 Right Foot Bone Aerobic Culture: Light Growth Enterobacter Cloacae Complex, S=Youssef Sensitive. Final. 11/20/2019 Right Foot Bone Anaerobic Culture: No Anaerobic Growth at 2 Days. Final. Date: 12/06/2019 New labs/results as of last note Update from previous note Tmax: 99 Urine Output: 1250 Stool: not recorded Current Antibiotics: Rocephin 2 gm IV every 24 Hours until 01/02/2020 Previous Antibiotic: Ancef 2,000 mg IV every 8 Hours Pre/Post Procedure I have personally reviewed the labs and results Test results Laboratory and Additional Data Reviewed: Labs: CBC 12/05/2019 07:58 WBC: 7.98 Hgb: 11.4 Hct: 36.3 Platelets: 228 Lymphocytes Abs: 0.52 CMP 12/05/2019 07:58 Glucose: 223 BUN: 19 Creatinine: 0.86 Sodium: 139 Potassium: 4.1 Total Protein: 6.4 Albumin: 2.4 Alk Phos: 75 AST: 20 ALT: 31 Total Bilirubin: 0.4 CRP 12/05/2019 07:58 85.3 Current Cultures: 12/02/2019 Right Foot Tissue Aerobic Culture: Normal [place] After 48 Hours. Final. 12/02/2019 Right Foot Tissue AFB Culture: No Acid Fast Bacilli Seen. Preliminary. 12/02/2019 Right Foot Tissue Anaerobic Culture: No Anaerobic Growth at 2 Days. Final. 12/02/2019 Right Foot Tissue Fungus Culture: Fungal Culture in Progress. Preliminary. 12/01/2019 Blood Culture #1: No Growth After 5 Days. Final. 12/01/2019 Blood Culture #2: No Growth After 5 Days. Final. 11/30/2019 Right Foot Wound Aerobic Culture: Normal [place] After 48 Hours. Final. 11/21/2019 Left Leg Wound Aerobic Culture: Normal [place] After 48 Hours. Final. 11/20/2019 Right Foot Tissue Aerobic Culture: Moderate Growth Enterobacter cloacae complex, S=Youssef Sensitive. Final. 11/20/2019 Right Foot Tissue Anaerobic Culture: No Anaerobic Growth at 2 Days. Final. 11/20/2019 Right Foot Bone Aerobic Culture: Light Growth Enterobacter Cloacae Complex, S=Youssef Sensitive. Final. 11/20/2019 Right Foot Bone Anaerobic Culture: No Anaerobic Growth at 2 Days. Final. Pathology: 12/02/2019 A. Soft tissue, Right Foot, excision: Non-specific ulcer. Date: 12/05/2019 New labs/results as of last note Update from previous note Tmax: 98.8 Urine Output: 2900 Stool: not recorded Current Antibiotics: Rocephin 2 gm IV every 24 Hours Previous Antibiotic: Ancef 2,000 mg IV every 8 Hours Pre/Post Procedure I have personally reviewed the labs and results Test results Laboratory and Additional Data Reviewed: Labs: CBC 12/05/2019 07:58 WBC: 7.98 Hgb: 11.4 Hct: 36.3 Platelets: 228 Lymphocytes Abs: 0.52 CMP 12/05/2019 07:58 Glucose: 223 BUN: 19 Creatinine: 0.86 Sodium: 139 Potassium: 4.1 Total Protein: 6.4 Albumin: 2.4 Alk Phos: 75 AST: 20 ALT: 31 Total Bilirubin: 0.4 CRP 12/05/2019 07:58 85.3 Current Cultures: 12/02/2019 Right Foot Tissue Aerobic Culture: Normal [place] After 48 Hours. Final. 12/02/2019 Right Foot Tissue AFB Culture: No Acid Fast Bacilli Seen. Preliminary. 12/02/2019 Right Foot Tissue Anaerobic Culture: No Anaerobic Growth at 2 Days. Final. 12/02/2019 Right Foot Tissue Fungus Culture: Fungal Culture in Progress. Preliminary. 12/01/2019 Blood Culture #1: No Growth After 48 Hours. Preliminary. 12/01/2019 Blood Culture #2: No Growth After 48 Hours. Preliminary. 11/30/2019 Right Foot Wound Aerobic Culture: Normal [place] After 48 Hours. Final. 11/21/2019 Left Leg Wound Aerobic Culture: Normal [place] After 48 Hours. Final. 11/20/2019 Right Foot Tissue Aerobic Culture: Moderate Growth Enterobacter cloacae complex, S=Youssef Sensitive. Final. 11/20/2019 Right Foot Tissue Anaerobic Culture: No Anaerobic Growth at 2 Days. Final. 11/20/2019 Right Foot Bone Aerobic Culture: Light Growth Enterobacter Cloacae Complex, S=Youssef Sensitive. Final. 11/20/2019 Right Foot Bone Anaerobic Culture: No Anaerobic Growth at 2 Days. Final. Current Antibiotics: Rocephin 2 gm IV every 24 Hours Previous Antibiotic: Ancef 2,000 mg IV every 8 Hours Pre/Post Procedure I have personally reviewed the labs and results Test results Laboratory and Additional Data Reviewed: Results from last 7 days Lab Units 12/01/19 0648 11/30/19 1245 11/29/19 0655 SODIUM mmol/L 140 140 142 POTASSIUM mmol/L 5.0 4.9 5.1 CHLORIDE mmol/L 106 105 107 BUN mg/dL 22 24 36* CREATININE mg/dL 0.98 0.94 1.12 GLUCOSE mg/dL 223* 127* 108* CALCIUM mg/dL 9.1 9.3 9.3 Results from last 7 days Lab Units 12/01/19 0635 11/30/19 1245 WBC K/mcL 8.56 8.72 HGB g/dL 11.2* 10.8* HCT % 35.6* 35.4* PLT K/mcL 232 243 Results from last 7 days Lab Units 11/30/19 1245 ALK PHOS U/L 67 BILIRUBIN TOTAL mg/dL 0.3 TOTAL PROTEIN g/dL 6.5 ALTR U/L 56 AST U/L 42 Current Cultures: 12/02/2019 Right Foot Tissue Aerobic Culture: Normal [place] After 24 Hours. Preliminary. 12/02/2019 Right Foot Tissue AFB Culture: No Acid Fast Bacilli Seen. Preliminary. 12/01/2019 Blood Culture #1: No Growth After 48 Hours. Preliminary. 12/01/2019 Blood Culture #2: No Growth After 48 Hours. Preliminary. 11/30/2019 Right Foot Wound Aerobic Culture: Normal [place] After 48 Hours. Final. 11/21/2019 Left Leg Wound Aerobic Culture: Normal Chal[place] After 48 Hours. Final. 11/20/2019 Right Foot Tissue Aerobic Culture: Moderate Growth Enterobacter cloacae complex, S=Youssef Sensitive. Final. 11/20/2019 Right Foot Tissue Anaerobic Culture: No Anaerobic Growth at 2 Days. Final. 11/20/2019 Right Foot Bone Aerobic Culture: Light Growth Enterobacter Cloacae Complex, S=Youssef Sensitive. Final. 11/20/2019 Right Foot Bone Anaerobic Culture: No Anaerobic Growth at 2 Days. Final. Recent Cultures: 05/30/2019 Right Foot Tissue Aerobic Culture: Normal Chalino After 48 Hours. Final. 05/30/2019 Right Foot Tissue Anaerobic Culture: No Anaerobic Growth at 2 Days. Final. 03/23/2019 Right Foot Wound Aerobic Culture: Heavy Growth Raoultella [place], R=Ampicillin, S=Remainder of panel. 03/09/2019 Right Foot Wound Aerobic Culture: Normal Chal[place] After 48 Hours. Final. 02/09/2019 Right Foot Wound Aerobic Culture: Normal Chal[place] After 48 Hours. Final. 01/19/2019 Right Toe Two Wound Aerobic Culture: Heavy Growth Enterobacter Cloacae Complex, S=Youssef Sensitive. Final. Radiology: Right Foot X-Ray 12/02/2019 Intraoperative fluoroscopy provided. Severe bony deformity of the foot as described. Please correlate with operative note. Chest X-Ray 11/23/2019 1. Right arm PICC line in place with tip in superior vena cava. 2. No acute pulmonary disease. 3. Cardiomegaly with evidence of prior open heart surgery. 4. No acute osseous abnormality Right Foot X-Ray 11/20/2019 IMPRESSION: Intraoperative fluoroscopy for localization during right foot and ankle reconstruction and fixation. Please see operative report for details. Left Ankle X-Ray Ordered 11/20/2019 Right Foot X-Ray 11/20/2019 FINDINGS: Two views of the right foot were obtained. There are advanced changes of Charcot arthropathy throughout the right midfoot which appears similar compared to prior examination. There are postsurgical changes of resection of the right 2nd toe proximal phalangeal head. IMPRESSION: 1. Advanced changes of Charcot arthropathy throughout the right midfoot which appear unchanged compared to prior examination. Chest AP/PA X-Ray 11/16/2019 1. No acute pulmonary disease. 2. Cardiomegaly, with evidence of prior open heart surgery. 3. Multilevel degenerative changes of the thoracic spine. MR Right Foot 05/19/2019 1. There is a superficial soft tissue ulcer again seen along the plantar aspect of the midfoot, butthere is no evidence of abscess or osteomyelitis in this region. 2. Stable appearance of the sequela of severe neuropathic arthropathy of the midfoot with collapse of the midfoot again seen resulting in a rocker bottom deformity. 3. A moderate amount of diffuse subcutaneous edema along the dorsum of the foot may be due to reactive edema or a cellulitis, but this is nonspecific. Right Foot X-Ray 04/28/2019 1. Soft tissue irregularity involving the plantar aspect of the foot likely representing the reported ulcer. No bony destruction to suggest osteomyelitis. 2. No evidence of radiopaque foreign body. 3. Stable deformity and degenerative changes involving the midfoot. Findings are consistent with Charcot joint. NM White Cell Scan Spot Limited 03/08/2017 FINDINGS: A focal area of intense abnormal white blood cell migration is noted central plantar aspect of the right foot corresponding to the area of the wound demonstrated radiographically. No other focus of white blood cell migration abnormality is evident within the right or left foot. IMPRESSION: Focal area of abnormal white blood cell migration at the plantar aspect central right foot may be at the wound itself or may be involving the bone with associated fracture as demonstrated radiographically. Anatomic detail is insufficient for differentiation between the two. Renal U/S 03/07/2017 IMPRESSION: Severe thickening of the urinary bladder wall. This could be due to outlet obstruction with hypertrophy of the wall. If there is no such history, this should be evaluated with cystoscopy. CVPS: Arterial Doppler: not on file Venous Doppler: not on file 2D Echo 11/23/2019 Moderate LV enlargement with LVH. Global systolic dysfunction with segmental features. LVEF 30% Elevated LV filling pressures RV is dilated with severe RV dysfunction Mild mitral annular calcification, mild thickening of the aortic valve without hemodynamically significant valvular disease There is a atrial level right to left shunt identified with saline contrast with free breathing andValsalva most likely via PFO LVEF unchanged from to previous echo from 2017 Surgeries: Please see above for surgical history Procedure: Right Foot I&D ADJUSTMENT EXTERNAL FIXATOR Date: 12/02/2019 Surgery: Alena Mora DPM Procedure: RIGHT FOOT RECONSTRUCTION WITH APPLICATION OF CIRCULAR STATIC EXTERNAL FIXATION Date: 11/20/2019 Surgeon: Alena oMra DPM Procedure: ARTHROPLASTY 2ND TOE RIGHT FOOT Date: 01/25/2019 Surgeon: Rosa M Robles DPM Pathology: not on file * Delmy Lock, OT - 12/14/2019 10:25 AM EDT GROUP THERAPY Pt participated in occupational/recreational therapy group session from W/C level with 7 other patients present. Pt participated in introductions stating name, where he lives, and favorite ice cream flavor. Pt participated in Coping Skills Jeopardy game to improve knowledge regarding healthy copingskills to use to cope with current diagnosis including brain exercise, physical exercise, creative outlets, community involvement, support systems, and leisure activities. Pt actively participated insession with sharing during his turn and listening to other group members share. Pt benefitted fromgroup session to improve social and mental/emotional well-being. Exit protocol followed at the end of session with handoff to next therapist. * Eli Hassan CTRS - 12/14/2019 10:25 AM EDT Recreational Therapy Daily Note Patient attended OT/TR cotreat group session this date to promote increased activity tolerance, cognitive exercise, positive leisure participation, awareness of leisure adaptations and/or resources, application of positive coping skills, positive social interaction. Patient participated with moderate effort. Roles of OT and TR described as well as explanation of coping skill (negative versus positive). Patient took part in introductions. Patient engaged in activity entitled Coping Skills Jeopardy involving questions/discussion related to topics of: Brain Exercise, Physical Exercise, Relaxation Techniques, Creativity, Support Person, & Community Involvement. Patient voiced motivation to use his home gym to improve his physical exercise; he was encouraged to seek nutrition counselor from his physician and outpatient therapists prior to using exercise equipment at home. He also voiced enjoyment from creative writing (short stories). Affect pleasant. Refer to OT note for further detail. Continue with TR treatment goals as stated in TR assessment. Treatment time: [id number]; 45 min Exit protocol followed: Exception: Remained in tx area for scheduled individual TR tx session. * Delmy Lock OT - 12/14/2019 9:20 AM EDT OCCUPATIONAL THERAPY Daily Progress Note Therapy Precautions Orthotic Devices: Yes Lower Extremity: External Fixator, Right Weight Bearing Status: X RLE: Non Wt bearing LLE: Wt bearing as tolerated General Rehab Precautions: Fall risk Cognition Overall Cognitive Status: Within Functional Limits Arousal/Alertness: Appropriate responses to stimuli Orientation Level: Oriented X4 Executive functioning: WFL Safety Judgment: Decreased awareness of need for safety Attention: Attends to distracted environment Hearing Status: WFL Social Interaction: WFL, Cooperative Exercise Seated Exercises: Pt participated in BUE exercises to improve strength for ADL's and functional transfers. Pt was provided with HEP reference handout and red theraband for exercises. Reviewed each exercise on handout. Pt tolerated 15 reps of each exercise with BUE with minimal rest breaks. Pt performed ~30 exercises total from W/C level. SBA for verbal/visual cues from therapist for exercise technique with minimal tactile cues for proper positioning of UE. Minimal UE fatigue reported at end of session. Provided verbal/written instructions for HEP for home. Home Living Type of Home: House Home Layout: One level, Able to live on main level with bedroom/bathroom, Ramped entrance Bathroom Shower/Tub: Tub/shower unit Bathroom Toilet: Standard Bathroom Equipment: Tub transfer bench, Hand-held shower Bathroom Accessibility: Accessible via walker Home Equipment: Wheeled Walker, Wheelchair-manual(mayco rea, ) Additional Comments: Just recently was at [facility] for therapy Prior Level of Function Level of [place]: Independent with ADLs and functional transfers, Independent with homemaking with ambulation Lives With: Alone Receives Help From: Family ADL Assistance: Independent Homemaking Assistance: Independent Vocational: On disability Leisure: (cooking, shopping sports/electronics, target shoot, read, ) Comments: likes to build models, pt stayed in w/c most of the day, walked short distances at home, but was able to walk around stores ok though Handoff given to OT for group. Exit Protocol Followed: Yes For complete objective data, detailed plan of care and patient education refer to: OT EVALUATION flow sheet, OT TREATMENT flow sheet, patient Plan of Care, Plan of Care progress note, and Patient Education. * Phoebe Duncan RN - 12/14/2019 7:59 AM EDT Date: 12/14/2019 New labs/ results as of last note: 12/12/2019 T-Max: 98.6 Output: Urine 2150 ml Stool not recorded Current Antibiotics: Merrem 1,000 mg IV every 12 Hours Previous Antibiotic: Rocephin 2 gm IV every 24 Hours Ancef 2,000 mg IV every 8 Hours Pre/Post Procedure I have personally reviewed the labs and results Test results Laboratory and Additional Data Reviewed: Current Cultures: 12/10/2019 Right Foot Wound Aerobic Culture: Normal Chalino After 48 Hours. Final 12/10/2019 Right foot wound, anaerobic culture: No anaerobic growth at 2 days. Final 12/08/2019 Urine Aerobic Culture: No Growth (<1,000 CFU/mL). Final. 12/07/2019 Urine Aerobic Culture on arrival to Nursing Rehab Unit: No Growth (<1,000 CFU/mL). Final. 12/02/2019 Right Foot Tissue Aerobic Culture: Normal Chalino After 48 Hours. Final. 12/02/2019 Right Foot Tissue AFB Culture: No Acid Fast Bacilli Seen. Preliminary. 12/02/2019 Right Foot Tissue Anaerobic Culture: No Anaerobic Growth at 2 Days. Final. 12/02/2019 Right Foot Tissue Fungus Culture: Fungal Culture in Progress. Preliminary. 12/01/2019 Blood Culture #1: No Growth After 5 Days. Final. 12/01/2019 Blood Culture #2: No Growth After 5 Days. Final. 11/30/2019 Right Foot Wound Aerobic Culture: Normal Chalino After 48 Hours. Final. 11/21/2019 Left Leg Wound Aerobic Culture: Normal Chalino After 48 Hours. Final. 11/20/2019 Right Foot Tissue Aerobic Culture: Moderate Growth Enterobacter cloacae complex, S=Youssef Sensitive. Final. 11/20/2019 Right Foot Tissue Anaerobic Culture: No Anaerobic Growth at 2 Days. Final. 11/20/2019 Right Foot Bone Aerobic Culture: Light Growth Enterobacter Cloacae Complex, S=Youssef Sensitive. Final. 11/20/2019 Right Foot Bone Anaerobic Culture: No Anaerobic Growth at 2 Days. Final Update from previous note * Naveed José - 12/14/2019 7:34 AM EDT Nutrition Care Follow Up Monitoring and Evaluation: PO intake was 75 or greater at most meals Nutrition Diagnosis: Increased energy expenditure related to wound healing as evidenced by ankle surgery. Not Resolved Nutrition Intervention: Continue to encourage good intake and diet compliance all Meal and Snacks Nutrition Prescription: Diet: CCHO, 75 g / meal Oral nutrition supplement: jude Tube Feeding: n/a Nutrition Goals: PO intake > 75-100% most meals Start Date:12/14/2019 Expected End Date:12/20/2019 Nutrition Education: Pending prior to discharge Assessment: Pertinent clinical information: impaired mobility Current weight: 118 kg (260 lb 2.3 oz) Body mass index is 36.28 kg/m . Weight: morbid obesity Recent intake: 75-100%. Current intake Likely meets estimated needs. Patient/family comments: Appetite has been good Difficulty Chewing/Swallowing: No Skin Integrity: Surgical incision GI Function: WNL Physical Appearance: no change from initial assessment Labs: Recent Labs 12/12/19 0611 NA 140 K 4.3 BICARB 30 CL 106 GLUCOSE 167* BUN 26* CREATININE 0.89 Scheduled Meds: aspirin 162 mg Oral Daily atorvastatin 40 mg Oral Nightly calcium carbonate 1,000 mg Oral Daily carvediloL 12.5 mg Oral BID docusate sodium 100 mg Oral Daily fenofibrate 160 mg Oral Daily with breakfast gabapentin 300 mg Oral Q8H LESLEY insulin glargine 35 Units Subcutaneous BID lispro insulin 0-15 Units Subcutaneous at bedtime insulin lispro 0-30 Units Subcutaneous TID AC levothyroxine 112 mcg Oral Daily magnesium oxide 400 mg Oral Daily melatonin 10 mg Oral at bedtime meropenem 1,000 mg Intravenous Q12H metFORMIN 1,000 mg Oral BID with meals psyllium husk 1 packet Oral Daily tamsulosin 0.4 mg Oral After evening meal Continuous Infusions: Estimated Energy Needs Total Energy Estimated Needs: 2400 Method for Estimating Needs: 25kcals/kg. used adjBW. Total Protein Estimated Needs: 116 Method for Estimating Needs: 1.2gms/kg. used adjBW. Will monitor and follow as needed Naveed José DTR * Sinai Lopez MD - 12/13/2019 9:40 PM EDT Physical Medicine & Rehabilitation Inpatient Progress 12/13/2019 Sinai Lopez MD [facility] Nursing Rehab Patient: Dyllan Huertas Date of : 1960 (59 y.o.) PCP: Rohit Aguilar MD Date of Admission: 12/06/2019 ASSESSMENT/PLAN: Rehabilitation Diagnosis: Rehab Impairement Code (JOSE): Ortho (12/05/19 0700) Ortho IGC: 08.9 - Other Orthopaedic (12/05/19 07) Discharge Barriers: Mobility, ADL, Self Care Impairment: Intensive PT/OT Decreased Endurance: Intensive PT/OT , patient requires AFO on left lower limb discussed with patient and PT Skin: Turn every 2 hours, monitor for skin breakdown per rehabilitation nursing, dressing changes per podiatry Nutritional Status: Nutrition Consult Pulmonary Rehabilitation: Encourage incentives spirometry and deep breathing exercises Neurogenic Bladder: remove schulte monitor left lower limb charco ankle -obtain Xray -screw broken in left lower limb - per podiatry no change in acitivty restrictions Mixed hyperlipidemia Assessment & Plan Statin. 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 Consult endocrine * Osteomyelitis (HCC) Assessment & Plan ID following, podiatry following. See rehab plan. Therapy Updates: patient has progressed to min/mod with stand pivot transfers Attestation: Considering all of the information above, it is my best judgment that this patient continues to require an intensive rehabilitation multidisciplinary program as previously described due to the necessity of medical management, rehabilitation needs, and complexity of nursing care under the supervision of a rehabilitation physician (patient requires at least 3 rehab physician visits per week). It can be reasonably expected that patient will participate in and benefit from a multidisciplinary team approach to maximize functional independence that is best served with acute inpatient rehabilitationas opposed to lower level of care. The teams needed are: Rehabilitation Nursing for medication management, bowel/bladder care, skin care, and respiratory care Physical Therapy for strengthening, endurance, mobility, gait and balance training, ROM, ADL's, andpatient/family training Occupational Therapy for strengthening, endurance, mobility, gait and balance training, ROM, ADL's,and patient/family training Rehabilitation Psychology for coping Therapeutic Recreation for community re-entry Social Work for integrated social support and discharge planning SUBJECTIVE: Date of Admission: 12/06/2019 Informant(s): Patient History of Present Illness: Patient reports that therapies are going well. He reports that he is doing better with sit to standtransfers. Review of Systems: All pertinent positives and negative in HPI/Interval History. All others negative. Allergies: Patient has no known allergies. Current HOSPITAL Medications: Current Facility-Administered Medications Medication Dose Route Frequency Provider Last Rate Last Dose acetaminophen (TYLENOL) tablet 650 mg 650 mg Oral Q4H PRN Helena Sheldon CNP 650 mg at 12/09/19 2142 albuterol (PROVENTIL) 2.5 mg /3 mL (0.083 %) nebulizer solution 2.5 mg 2.5 mg Inhalation Q2H PRN Helena Sheldon CNP aspirin EC tablet 162 mg 162 mg Oral Daily Helena Sheldon CNP 162 mg at 12/13/19 0846 atorvastatin (LIPITOR) tablet 40 mg 40 mg Oral Nightly Helena Sheldon CNP 40 mg at 12/12/19 2118 bisacodyL (DULCOLAX) suppository 10 mg 10 mg Rectal Daily PRN Helena Sheldon CNP 10 mg at 12/08/19 2242 calcium carbonate (TUMS) chewable tablet 1,000 mg 1,000 mg Oral Daily Helena Sheldon CNP 1,000mg at 12/13/19 0846 carvediloL (COREG) tablet 12.5 mg 12.5 mg Oral BID Helena Sheldon CNP 12.5 mg at 12/13/19 0846 docusate sodium (COLACE) capsule 100 mg 100 mg Oral Daily Helena Sheldon CNP 100 mg at 12/13/19 0847 docusate sodium (COLACE) capsule 100 mg 100 mg Oral BID PRN Helena Sheldon CNP 100 mg at 12/13/19 1712 fenofibrate tablet 160 mg 160 mg Oral Daily with breakfast Helena Sheldon CNP 160 mg at 12/13/19 0847 gabapentin (NEURONTIN) capsule 300 mg 300 mg Oral Q8H LESLEY Helena Sheldon CNP 300 mg at 12/13/19 1540 insulin glargine (LANTUS) injection 35 Units 35 Units Subcutaneous BID Andrés Andre CNP 35 Units at 12/13/19 0846 insulin lispro (HumaLOG) injection 0-15 Units 0-15 Units Subcutaneous at bedtime Helena Sheldon CNP 2 Units at 12/07/19 2111 insulin lispro (HumaLOG) injection 0-30 Units 0-30 Units Subcutaneous TID AC Andrés Andre CNP 14 Units at 12/13/19 1714 levothyroxine (SYNTHROID, LEVOTHROID) tablet 112 mcg 112 mcg Oral Daily Helena Sheldon CNP 112mcg at 12/13/19 0535 magnesium oxide (MAG-OX) tablet 400 mg 400 mg Oral Daily Helena Sheldon CNP 400 mg at 12/13/200747 melatonin Tab 10 mg 10 mg Oral at bedtime Helena Sheldon CNP 10 mg at 12/12/19 2118 meropenem (MERREM) 1000 mg in sodium chloride (NS) 0.9% 50 mL (premix) 1,000 mg Intravenous Q12H Maria Isabel Awad MD Stopped at 12/13/19 1800 metFORMIN (GLUCOPHAGE) tablet 1,000 mg 1,000 mg Oral BID with meals Helena Sheldon CNP 1,000 mg at 12/13/19 1712 naloxone (NARCAN) injection 0.1 mg 0.1 mg Intravenous PRN Helena Sheldon CNP And naloxone (NARCAN) injection 0.4 mg 0.4 mg Intravenous PRN Helena Sheldon CNP nitroGLYCERIN (NITROSTAT) SL tablet 0.4 mg 0.4 mg Sublingual Q5 Min PRN Helena Sheldon CNP ondansetron (ZOFRAN-ODT) disintegrating tablet 4 mg 4 mg Oral Q6H PRN Helena Sheldon CNP psyllium (METAMUCIL) powder 1 packet 1 packet Oral Daily Kyung Doran [facility] 1 packet at 12/13/19 0846 senna (SENOKOT) tablet 8.6 mg 1 tablet Oral BID PRN Helena Sheldon CNP sodium phosphates (FLEETS ADULT) 19-7 gram/118 mL enema 1 each 1 each Rectal Daily PRN Helena Jaimes CNP tamsulosin (FLOMAX) 24 hr capsule 0.4 mg 0.4 mg Oral After evening meal Helena Sheldon CNP 0.4mg at 12/13/19 1712 traZODone (DESYREL) tablet 50 mg 50 mg Oral Nightly PRN Helena Sheldon CNP OBJECTIVE: Physical Examination: BP 102/64 Pulse 83 Temp 98.6 F (37 C) (Oral) Resp 16 Ht 5' 11 Wt 118 kg (260 lb 2.3 oz) SpO2 94% BMI 36.28 kg/m GENERAL: General Appearance: In no apparent distress, well nourished HEENT: Normocephalic, atraumatic, neck supple, EOMI, PER Respiratory: On room air, no respiratory distress Cardiovascular: Peripheral pulses palpable, 2+ edema b/l Abdomen: Nontender, nondistended Musculoskeletal: left charcot ankle; s/p right ex-fix and debridement with wound closure; decreasedPROM of left ankle dorsiflexion and plantar flexion. Skin: ZECHARIAH wraps on lower limbs, right lower limb dressing in tact. Psychiatric: Normal mood and affect, appropriate insight and judgement CRANIAL NERVES: II, III: Pupils: PER III, IV, : Eye Movements: Normal (EOMI, No ptosis, No nystagmus) V - Facial Sensation: Normal VII: Face Symmetry & Strength: Normal VIII Hearing: Normal IX, X Palate:: Normal XI - Shoulder Shrug: Normal XII - Tongue Protrusion: Normal GAIT: Unable to walk due to no assistance to safely evaluate COORDINATION & GROSS MOTOR: Abnormal Movements: None Tone: Normal MOTOR - MUSCLE STRENGTH: Right Muscle Strength Left 5 Shoulder Abduction 5 5 Elbow Flexion 5 5 Elbow Extension 5 5 Wrist Extension 5 5 Finger Abduction 5 5 Hip Flexion 5 5 Knee Extension 5 EDDI Knee Flexion 5 EDDI Dorsiflexion 4 EDDI Plantar Flexion 4 MOTOR MARTINO: 5 Normal Power 4 Movement against moderate resistance over a full range of motion 3 Movement against gravity over almost full range of motion 2 Movement with gravity eliminated over almost full range of motion 1 Trace Movement (flicker of contraction visible or palpable) 0 No Movement (no contraction visible or palpable) EDDI Unable to Assess SENSATION: Light Touch: impaired Position Sense: impaired Lab Results Component Value Date ALBUMIN 2.5 (L) 12/12/2019 ALT 52 12/12/2019 AST 35 12/12/2019 BUN 26 (H) 12/12/2019 CALCIUM 9.7 12/12/2019 CL 106 12/12/2019 CHOL 115 11/27/2019 CREATININE 0.89 12/12/2019 GLUCOSE 167 (H) 12/12/2019 HDL 28 (L) 11/27/2019 HCT 35.6 (L) 12/12/2019 HGB 10.8 (L) 12/12/2019 HGBA1C 8.8 (H) 11/27/2019 MG 2.1 11/24/2019 PLT 203 12/12/2019 K 4.3 12/12/2019 NA 140 12/12/2019 TRIG 177 (H) 11/27/2019 WBC 4.12 (L) 12/12/2019 * Jian Maravilla, SCRAP [employer] - 12/13/2019 2:50 PM EDT PHYSICAL THERAPY Daily Progress Note Therapy Precautions Therapy Precautions Orthotic Devices: Yes Lower Extremity: External Fixator Weight Bearing Status: X RLE: Non Wt bearing LLE: Wt bearing as tolerated General Rehab Precautions: Fall risk Transfers Transfers Sit to Stand: Min Lateral Transfers: Stand by assistance Fire Fighter Airport: None Skilled Intervention: Pt performs STSx5 to FWW with min to improve LE strength and idependence withtransfers. Pt performs lateral transfer from w/c to nustep then back to w/c this date with no slide board and SBA. Exercise Exercises Seated Exercises: Pt performs UE pull downs/scapular depressions on cable column to improve UE strength for transfers. Pt performs 2 sets of wide store leader, and 2 sets of reverse narrow store leader. Each set performed for 15 reps, at 80#. Pt then performs 3 sets of scapular retractions on cable column to further improve UE strength for transfers. Each set performed for 15 reps at 60# for retractions. Skilled Intervention: Pt performs w/c push ups x10 reps to increase UE strength for improved transfers. Nustep for 10 min on level 6 resistance to improve L LE strength, and functional activity tolerance. Pt does not use R LE while on nustep. Home Living Home Living Type of Home: House Home Layout: One level, Able to live on main level with bedroom/bathroom, Ramped entrance Bathroom Shower/Tub: Tub/shower unit Bathroom Accessibility: Accessible via walker Home Equipment: Wheeled Walker, Wheelchair-manual(lewler scooter, ) Additional Comments: Just recently was at [facility] for therapy Prior Level of Function Prior Function Level of [place]: Independent with ADLs and functional transfers, Independent with homemaking with ambulation Lives With: Alone Receives Help From: Family ADL Assistance: Independent Homemaking Assistance: Independent Vocational: On disability Leisure: (cooking, shopping sports/electronics, target shoot, read, ) Comments: likes to build models, pt stayed in w/c most of the day, walked short distances at home, but was able to walk around stores ok though Exit Protocol Followed: Yes For complete objective data, detailed plan of care and patient education refer to: PT EVALUATION flow sheet, PT TREATMENT flow sheet, patient Plan of Care, Plan of Care progress note, and Patient Education. * Helena Sheldon CNP - 12/13/2019 2:25 PM EDT [facility] Medicine Inpatient Consult Follow-up 12/13/2019 Helena Sheldon CNP Patient: Dyllan Huertas Date of : 1960 (59 y.o.) PCP: Rohit Aguilar MD Referring Provider: Sinai Lopez* Consult: Alisa Singh MD: Hospitalist assistance with medical management ASSESSMENT/PLAN: Principal Problem: Osteomyelitis (HCC) Active Problems: 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) JAYDEN (obstructive sleep apnea) Mixed hyperlipidemia Benign prostatic hyperplasia with urinary retention Essential hypertension S/P foot surgery, right S/P foot surgery, right Assessment & Plan Dr. Mora podiatry consulted to manage wound. Extensive wound care is needed. Non wt bearing. Essential hypertension Assessment & Plan Monitor blood pressure per shift. Check kidney function. Continue coreg Benign prostatic hyperplasia with urinary retention Assessment & Plan Has been straight cathing at home. Follows with Dr. Izquierdo. Bladder training, remove schulte, bladder scan and straight cath. Pt has no bladder sensation Mixed hyperlipidemia Assessment & Plan Continue lipitor and fenofibrate. Uses crestor at home. Monitor liver function JAYDEN (obstructive sleep apnea) Assessment & Plan Encourage pt to wear cpap. Wear nasal cannula at 2L at night if he refuses Cpap 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) Assessment & Plan Consult endocrinology. DM has not been well controlled and the infection is making it worse. Monitor blood glucose ACHS, continue lantus, preprandial humalog, and sliding scale. Diabetic diet * Osteomyelitis (HCC) Assessment & Plan Consult ID and continue IV antibiotics. Non wt bearing on right foot. 12/07 Dr. Mora came and had nurse change leg dressing on his left foot with the external fixator. It took over an hour to clean and wrap each pin. Pt tolerated well. Compliant with therapy. Continues antibiotics 12/08 Afebrile, continues with antibiotic therapy DM being managed by endocrinology. Blood pressure is stable. Complaint with therapy 12/10 Glucose is becoming controlled. External fixator is intact No signs of infection Blood pressure is controlled New culture taken of wound due to some drainage. Dr. Andrey awad waiting for results 12/11 Blood glucose is controlled. Angelina Emanuel has changed antibiotic to Merepenem Pain is controlled. Constipation is resolved, metamucil has been started. Blood pressure is controlled. Afebrile 12/12 Making good progress with stand pivots. BP and HR stable. Has not had a BM today. But is taking metamucil daily, so he feels he can go tomorrow. Left leg wrapping of external fixator SUBJECTIVE: History Since Last Visit: denies pain Current Scheduled Meds: aspirin 162 mg Oral Daily atorvastatin 40 mg Oral Nightly calcium carbonate 1,000 mg Oral Daily carvediloL 12.5 mg Oral BID docusate sodium 100 mg Oral Daily fenofibrate 160 mg Oral Daily with breakfast gabapentin 300 mg Oral Q8H LESLEY insulin glargine 35 Units Subcutaneous BID lispro insulin 0-15 Units Subcutaneous at bedtime insulin lispro 0-30 Units Subcutaneous TID AC levothyroxine 112 mcg Oral Daily magnesium oxide 400 mg Oral Daily melatonin 10 mg Oral at bedtime meropenem 1,000 mg Intravenous Q12H metFORMIN 1,000 mg Oral BID with meals psyllium husk 1 packet Oral Daily tamsulosin 0.4 mg Oral After evening meal Review of Systems: All other systems reviewed and negative other than HPI OBJECTIVE: Physical Examination: Vital Signs: BP 113/77 Pulse 73 Temp 98.7 F (37.1 C) (Oral) Resp 12 Ht 5' 11 Wt 118 kg (260 lb 2.3 oz) SpO2 93% BMI 36.28 kg/m Physical Exam General Appearance: Alert, well appearing, and in no acute distress. HEENT: Head - Normocephalic, atraumatic. Eyes - ALEKS bilaterally and EOMI. Ears - normal external appearance, hearing intact. Nose - normal, no erythema. Throat - mucous membranes moist, pharynx without lesions. Neck: Supple, trachea midline. Cardiovascular: S1, S2 normal. No murmurs, rubs, clicks or gallops appreciated. No pedal edema. Respiratory: Lungs clear to auscultation, no wheezes, rales or rhonchi heard. Abdomen: Soft, non-tender, normal bowel sounds, non-distended, no masses or organomegaly appreciated. Neurological: Limited movement in lower ext. Numbness from knee down. Musculoskeletal: Right foot s/p surgery, swollen. Left foot swollen from surgery history Skin: Normal coloration and turgor. No rashes. External fixator with large incision, on right foot Psych: Alert, oriented x 3. Normal mood and affect. Laboratory and Additional Data Reviewed: Results/Medications Reviewed 12/13/19 2:25 PM: Results from last 7 days Lab Units 12/12/19 0611 12/07/19 0455 SODIUM mmol/L 140 138 POTASSIUM mmol/L 4.3 3.9 CHLORIDE mmol/L 106 104 BUN mg/dL 26* 17 CREATININE mg/dL 0.89 0.86 GLUCOSE mg/dL 167* 243* CALCIUM mg/dL 9.7 9.4 Results from last 7 days Lab Units 12/12/19 0611 12/07/19 0454 WBC K/mcL 4.12* 6.95 HGB g/dL 10.8* 11.3* HCT % 35.6* 36.8* PLT K/mcL 203 210 Results from last 7 days Lab Units 12/12/19 0611 ALK PHOS U/L 83 BILIRUBIN TOTAL mg/dL 0.3 TOTAL PROTEIN g/dL 6.7 ALTR U/L 52 AST U/L 35 CULTURES: Reviewed 12/13/19 2:25 PM Radiology/Imaging: Reviewed 12/13/19 2:25 PM * Bhakti Shields, OT - 12/13/2019 1:05 PM EDT OCCUPATIONAL THERAPY Daily Progress Note Therapy Precautions Orthotic Devices: Yes Lower Extremity: External Fixator Weight Bearing Status: X RLE: Non Wt bearing LLE: Wt bearing as tolerated General Rehab Precautions: Fall risk Cognition Overall Cognitive Status: Within Functional Limits Arousal/Alertness: Appropriate responses to stimuli Orientation Level: Oriented X4 Executive functioning: WFL Safety Judgment: Decreased awareness of need for safety Problem Solving: Able to problem solve independently Attention: Attends to quiet environment Hearing Status: WFL Social Interaction: WFL Functional Transfers Wheelchair mobility to/from therapy gym with Modified [place], able to remove/place armrests and navigate in close environment settings without difficulty. Exercise Seated Exercise: Pt participates in variety of BUE strengthening exercises to improve necessary strength for functional mobility and self care tasks: Primus (wheel) completed from w/c level to improve BUE strength in horizontal patterns, completing in 5 min duration on level 4 resistance without rest breaks. Pt alternates between horizontal abduction/adduction every 20 reps. Shoulder ladder at tabletop completed in flexion/extension strengthening, raising/lowering 4 lb dowel tommy x15 reps with intermittent brief rests. Pt instructed in Theraband exercises (medium green resistance), min verbal cuing for correct performance of exercises. Pt completes 2 sets of 15 reps each of scapular rows, reverse rows, shoulder extension, ER and IR strengthening. Weakness noted in RTC, requires verbal/tactile cuing to avoid compensation with ER strengthening. Plan to issue illustrated handout and Theraband for home use at next visit. Home Living Type of Home: House Home Layout: One level, Able to live on main level with bedroom/bathroom, Ramped entrance Bathroom Shower/Tub: Tub/shower unit Bathroom Toilet: Standard Bathroom Equipment: Tub transfer bench, Hand-held shower Bathroom Accessibility: Accessible via walker Home Equipment: Wheeled Walker, Wheelchair-manual(kneeler scooter, ) Additional Comments: Just recently was at [facility] for therapy Prior Level of Function Level of [place]: Independent with ADLs and functional transfers, Independent with homemaking with ambulation Lives With: Alone Receives Help From: Family ADL Assistance: Independent Homemaking Assistance: Independent Vocational: On disability Leisure: (cooking, shopping sports/electronics, target shoot, read, ) Comments: likes to build models, pt stayed in w/c most of the day, walked short distances at home, but was able to walk around stores ok though Handoff given to PT. Exit Protocol Followed: Yes For complete objective data, detailed plan of care and patient education refer to: OT EVALUATION flow sheet, OT TREATMENT flow sheet, patient Plan of Care, Plan of Care progress note, and Patient Education. * Jian Maravilla [employer] - 12/13/2019 11:08 AM EDT PHYSICAL THERAPY Daily Progress Note Therapy Precautions Therapy Precautions Orthotic Devices: Yes Lower Extremity: External Fixator Weight Bearing Status: X RLE: Non Wt bearing LLE: Wt bearing as tolerated General Rehab Precautions: Fall risk Bed Mobility Bed Mobility Rolling: Stand by assistance Supine to Sit: Stand by assistance Sit to Supine: Stand by assistance Skilled Intervention: Pt performs bed mobility on mat table this session. Transfers Transfers Sit to Stand: Min Stand Pivot Transfers: Min, Mod Fire Fighter Airport: (Parallel bars) Skilled Intervention: Pt performs STSx5 with min inside parallel bars to improve LE strength, and sequencing with transfers. SCRAP STRIPPER HAND assists with keeping R LE extended during stands to maintain NWB on R LE. Pt then performs stand pivot transfer x6 to and from different level surfaces to improve independence with transfers. Pt is unsteady with transfers and does need min-mod for balance. Verbal cues also provided for hand placement with stand to sit transfers. Gait/Locomotion Gait / Locomotion Wheelchair Mobility: Stand by assistance Wheelchair distance: 200 Feet Skilled Intervention: Pt ambulates in w/c on even surfaces, and performs 4 turns. Pt propels himself with use of isela UEs, and L LE. Exercise Exercises Straight Leg Raise: x20 isela Hip Flexion: x20 isela Hip Abduction: x20 isela Seated Exercises: Pt performs w/c push ups x10 reps to improve UE strength for transfers. Pt performs 2 sec holds in scapular depression once fully out of chair. Skilled Intervention: LAQs x20 isela Home Living Home Living Type of Home: House Home Layout: One level, Able to live on main level with bedroom/bathroom, Ramped entrance Bathroom Shower/Tub: Tub/shower unit Bathroom Accessibility: Accessible via walker Home Equipment: Wheeled Walker, Wheelchair-manual(lewler scooter, ) Additional Comments: Just recently was at [facility] for therapy Prior Level of Function Prior Function Level of [place]: Independent with ADLs and functional transfers, Independent with homemaking with ambulation Lives With: Alone Receives Help From: Family ADL Assistance: Independent Homemaking Assistance: Independent Vocational: On disability Leisure: (cooking, shopping sports/electronics, target shoot, read, ) Comments: likes to build models, pt stayed in w/c most of the day, walked short distances at home, but was able to walk around stores ok though Exit Protocol Followed: Yes For complete objective data, detailed plan of care and patient education refer to: PT EVALUATION flow sheet, PT TREATMENT flow sheet, patient Plan of Care, Plan of Care progress note, and Patient Education. * Prachi Frankel PA-C - 12/13/2019 8:54 AM EDT Patient ID: Patient Name: Dyllan Huertas Admit Date: 12/06/2019 MR #: [id number] : 1960 Current location: [facility] Physicians: Rohit Aguilar MD (Family); Marino Sheldon CNP (Referring) Reason for consult: Type 2 diabetes out of control Assessment/Plan: Dx: Type 2 diabetes, under poor control Patient would benefit from adjustment in insulin levels to seek euglycemia and aid in wound healing. See plan below. Currently taking as outpatient: Metformin 1000 mg twice daily Humalog insulin: 8 units at breakfast; 8 units at lunch; 8 units at supper Humalog sliding scale Lantus insulin: 30 units at breakfast; 30 units at bedtime Current Hemoglobin A1C= Lab Results Component Value Date HGBA1C 8.8 (H) 11/27/2019 HGBA1C 8.5 (H) 01/20/2019 NOTES: 12/07: Patient's blood glucose levels reviewed over the last 48 hours. Patient recently transferred to the inpatient rehabilitation unit blood glucose levels over the last for a 8 hours have ranged from 185-345 mg/dL. The present time he is taking 30 units of Lantus twice daily along with 8 units of Humalog with meals. Patient also takes metformin 1000 mg twice daily. 12/10: BG reviewed over the last 48 hours. Patient currently receiving Metformin 1000 mg daily, 12 units with meals + SS, and 35 units of Lantus BID. Patient reports that BG are better now than they usually are at home. 12/12: BG reviewed over the last 48 hours. Patient currently receiving Metformin 1000 mg daily, 12 units with meals + SS, and 35 units of Lantus BID. Blood Glucoses: 12/06: 242---341---239---345 12/07: 185---216---151---252 12/08: 203---190---133---153 12/09: 125---149---152---164 12/10: 168---162---153---195 12/11: 231---178---134---102 12/12: 137 Plan: 1. Rx changes: Adjust as below Humalog insulin: 12 units at breakfast; 12 units at lunch; 12 units at supper Lantus insulin: 35 units at breakfast; 35 units at bedtime Continue Metformin 1000 mg twice daily Decrease SSI to conservative dose. 12/10: CPM 12/12: CPM 2. Education: Reviewed ABCs of diabetes management (respective goals in parentheses): A1C (7.0-8.0), blood pressure (<130/80), and cholesterol (LDL <100). Referral to Diabetes Education Referral to Nutrition therapy Subjective: Brief HPI: 12/10: Patient sitting up in wheelchair finishing breakfast. He is without complaints this am. Patient reports that BG are better now than they usually are at home. We discussed that it is most likely diet related and patient admits to eating whatever he wants at home. 311: Patient sitting up in his wheelchair he had just finished breakfast. He is without complaints this morning. Patient reports that PT and OT are going well. Dyllan Huertas is a 59 y.o. male with a past medical history of type 2 DM w/ charcot joint arthropath. Patient recently underwent right midfoot wedge resection with application of external fixator (11/20/19). He was initially admitted on 11/30/2019 with osteomyelitis of right ankle. Patient was transferred to [facility] inpatient rehab on 12/06/19. Hospital course significant for: debridement of right ankle; hyperglycemia. IV abx per ID. Patient reports that his pain is well controlled. He denies CP or SOB. He reports that he has numbness/tingling of lower limbs. Patient has had diabetes for close to 30 years. Diagnosed in his late 's, he started with OHAs, transitioned to insulin in approximately 2011. Patient is currently taking Humalog insulin: 8 units at breakfast; 8 units at lunch; 8 units at supper Lantus insulin: 30 units at breakfast; 30 units at bedtime. Prior to admission he reports taking close to 50 units of R TID with meals and 50 units of lantus at HS. Patient reports he had considered changing to R and N due to cost of brand name insulin, however he is planning to delay that at this time. Blood sugar levels since admission have been ranging from 185-362 mg/dL. Current monitoring regimen: home blood tests - 2 times daily Complications of diabetes include: Retinopathy: Negative Nephropathy: Negative Peripheral Neuropathy: Positive Autonomic Neuropathy: Negative Allergies: No Known Allergies Home Medications: Current Facility-Administered Medications Medication Dose Route Frequency Provider Last Rate Last Dose acetaminophen (TYLENOL) tablet 650 mg 650 mg Oral Q4H PRN Helena Sheldon CNP 650 mg at 12/09/19 2142 albuterol (PROVENTIL) 2.5 mg /3 mL (0.083 %) nebulizer solution 2.5 mg 2.5 mg Inhalation Q2H PRN Helena Sheldon CNP aspirin EC tablet 162 mg 162 mg Oral Daily Helena Sheldon CNP 162 mg at 12/13/19 0846 atorvastatin (LIPITOR) tablet 40 mg 40 mg Oral Nightly Helena Sheldon DE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 40 mg at 12/12/19 2118 bisacodyL (DULCOLAX) suppository 10 mg 10 mg Rectal Daily PRN Helena Sheldon CNP 10 mg at 12/08/19 2242 calcium carbonate (TUMS) chewable tablet 1,000 mg 1,000 mg Oral Daily Helena Sheldon CNP 1,000mg at 12/13/19 0846 carvediloL (COREG) tablet 12.5 mg 12.5 mg Oral BID Helena Sheldon CNP 12.5 mg at 12/13/19 0846 docusate sodium (COLACE) capsule 100 mg 100 mg Oral Daily Helena Sheldon CNP 100 mg at 12/13/19 0847 docusate sodium (COLACE) capsule 100 mg 100 mg Oral BID PRN Helena Sheldon CNP 100 mg at 12/12/19 1724 fenofibrate tablet 160 mg 160 mg Oral Daily with breakfast Helena Sheldon CNP 160 mg at 12/13/19 0847 gabapentin (NEURONTIN) capsule 300 mg 300 mg Oral Q8H LESLEY Helena Sheldon CNP 300 mg at 12/13/19 0535 insulin glargine (LANTUS) injection 35 Units 35 Units Subcutaneous BID Andrés Andre CNP 35 Units at 12/13/19 0846 insulin lispro (HumaLOG) injection 0-15 Units 0-15 Units Subcutaneous at bedtime Helena Sheldon CNP 2 Units at 12/07/19 2111 insulin lispro (HumaLOG) injection 0-30 Units 0-30 Units Subcutaneous TID AC Andrés Andre CNP 12 Units at 12/13/19 0847 levothyroxine (SYNTHROID, LEVOTHROID) tablet 112 mcg 112 mcg Oral Daily Helena Sheldon CNP 112mcg at 12/13/19 0535 magnesium oxide (MAG-OX) tablet 400 mg 400 mg Oral Daily Helena Sheldon DE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 400 mg at 12/13/200747 melatonin Tab 10 mg 10 mg Oral at bedtime Helena Sheldon DE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 10 mg at 12/12/19 2118 meropenem (MERREM) 1000 mg in sodium chloride (NS) 0.9% 50 mL (premix) 1,000 mg Intravenous Q12H Maria Isabel Awad MD 100 mL/hr at 12/13/19 0402 1,000 mg at 12/13/19 0402 metFORMIN (GLUCOPHAGE) tablet 1,000 mg 1,000 mg Oral BID with meals Helena Sheldon CNP 1,000 mg at 12/13/19 0846 naloxone (NARCAN) injection 0.1 mg 0.1 mg Intravenous PRN Helena Sheldon CNP And naloxone (NARCAN) injection 0.4 mg 0.4 mg Intravenous PRN Helena Sheldon CNP nitroGLYCERIN (NITROSTAT) SL tablet 0.4 mg 0.4 mg Sublingual Q5 Min PRN Helena Sheldon CNP ondansetron (ZOFRAN-ODT) disintegrating tablet 4 mg 4 mg Oral Q6H PRN Helena Sheldon CNP psyllium (METAMUCIL) powder 1 packet 1 packet Oral Daily Kyung Doran [facility],Pharm[facility] 1 packet at 12/13/19 0846 senna (SENOKOT) tablet 8.6 mg 1 tablet Oral BID PRN Helena Sheldon CNP sodium phosphates (FLEETS ADULT) 19-7 gram/118 mL enema 1 each 1 each Rectal Daily PRN Helena Jaimes CNP tamsulosin (FLOMAX) 24 hr capsule 0.4 mg 0.4 mg Oral After evening meal Helena Sheldon CNP 0.4mg at 12/12/19 1724 traZODone (DESYREL) tablet 50 mg 50 mg Oral Nightly PRN Helena Sheldon CNP Current Medications: aspirin 162 mg Oral Daily atorvastatin 40 mg Oral Nightly calcium carbonate 1,000 mg Oral Daily carvediloL 12.5 mg Oral BID docusate sodium 100 mg Oral Daily fenofibrate 160 mg Oral Daily with breakfast gabapentin 300 mg Oral Q8H LESLEY insulin glargine 35 Units Subcutaneous BID lispro insulin 0-15 Units Subcutaneous at bedtime insulin lispro 0-30 Units Subcutaneous TID AC levothyroxine 112 mcg Oral Daily magnesium oxide 400 mg Oral Daily melatonin 10 mg Oral at bedtime meropenem 1,000 mg Intravenous Q12H metFORMIN 1,000 mg Oral BID with meals psyllium husk 1 packet Oral Daily tamsulosin 0.4 mg Oral After evening meal acetaminophen, albuterol, bisacodyL, docusate sodium, nalOXone AND Notify physician AND naloxone, nitroGLYCERIN, ondansetron, senna, sodium phosphates, traZODone Review of Systems: Review of Systems Constitutional: Positive for activity change, fatigue and unexpected weight change. HENT: Negative for trouble swallowing. Eyes: Negative for visual disturbance. Respiratory: Negative for cough and shortness of breath. Cardiovascular: Negative for chest pain and leg swelling. Gastrointestinal: Negative for abdominal pain, constipation, diarrhea, nausea and vomiting. Endocrine: Negative for polydipsia, polyphagia and polyuria. Genitourinary: Schulte in place Musculoskeletal: Positive for arthralgias and myalgias. Skin: Negative for wound. Neurological: Positive for weakness and numbness (and tingling). Negative for headaches. Psychiatric/Behavioral: Negative for agitation and sleep disturbance. The patient is not nervous/anxious. History: Past Medical History: Diagnosis Date Coronary artery disease Diabetes mellitus, type 2 (HCC) Hyperlipidemia Hypertension Hypothyroidism Peripheral neuropathy S/P foot surgery, right 12/09/2019 11/20/2019Right foot reconstruction surgery with external fixation 12/02/2019 Right foot I and D Sleep apnea, obstructive does not use CPAP Past Surgical History: Procedure Laterality Date APPENDECTOMY ARTHROPLASTY TOE Right 01/25/2019 Procedure: ARTHROPLASTY 2ND TOE RIGHT FOOT; Surgeon: Rosa M Robles DPM; Location: [facility] [place] OR; Service: Podiatry CABG 2017 CARDIAC SURGERY 2017 CABG tripe bypass CLOSED REDUCTION PERCUTANEOUS PINNING LOWER EXTREMITY N/A 12/02/2019 Procedure: ADJUSTMENT of EXTERNAL FIXATOR; Surgeon: Alena Mora DPM; Location: [facility] OR; Service: Podiatry CYST REMOVED FROM CHEST N/A INCISION AND DRAINAGE FOOT AND ANKLE Right 12/02/2019 Procedure: RIGHT FOOT I&D; Surgeon: Alena Mora DPM; Location: [facility] OR; Service: Podiatry METAL IN LEFT LEFT WRIST AND LEFT 5TH TOE Left ORTHOPEDIC SURGERY RECONSTRUCTION FOOT CHARCOT Right 11/20/2019 Procedure: RIGHT FOOT RECONSTRUCTION WITH APPLICATION OF CIRCULAR STATIC EXTERNAL FIXATION; Surgeon: Alena Mora DPM; Location: [facility] OR; Service: Podiatry RT FOOT SURGERY Right SHARMILA JEONG N/A Family History Problem Relation Age of Onset Heart disease Mother Heart disease Father Heart disease Brother Diabetes Sister Social History Tobacco Use Smoking status: Never Smoker Smokeless tobacco: Never Used Substance Use Topics Alcohol use: Yes Comment: occassionally mostly beer Drug use: Never The following portions of the patient's history were reviewed and updated as appropriate: allergies, current medications, past family history, past medical history, past social history, past surgicalhistory and problem list. Objective: BP 113/77 Pulse 73 Temp 98.7 F (37.1 C) (Oral) Resp 12 Ht 5' 11 Wt 118 kg (260 lb 2.3 oz) SpO2 93% BMI 36.28 kg/m Wt Readings from Last 3 Encounters: 12/12/19 118 kg (260 lb 2.3 oz) 11/30/19 128 kg (282 lb 3 oz) 11/20/19 129.4 kg (285 lb 4.4 oz) Physical Exam: Physical Exam Constitutional: He is oriented to person, place, and time. He appears well- developed and well-nourished. HENT: Head: Normocephalic and atraumatic. Eyes: Pupils are equal, round, and reactive to light. Conjunctivae are normal. Neck: Normal range of motion. Neck supple. No thyromegaly present. Cardiovascular: Normal rate, regular rhythm, normal heart sounds and intact distal pulses. Pulmonary/Chest: Effort normal and breath sounds normal. No respiratory distress. He has no wheezes. Abdominal: Soft. Bowel sounds are normal. He exhibits no distension. Genitourinary: Genitourinary Comments: Schulte in place Musculoskeletal: General: Edema (BLE) present. Comments: Right foot wrapped with ZECHARIAH bandage. External fixator in place. Left foot in diabetic shoe, not examined by this provider Neurological: He is alert and oriented to person, place, and time. Skin: Skin is warm and dry. Psychiatric: He has a normal mood and affect. His behavior is normal. Judgment and thought content normal. Laboratory Review: BP 113/77 Pulse 73 Temp 98.7 F (37.1 C) (Oral) Resp 12 Ht 5' 11 Wt 118 kg (260 lb 2.3 oz) SpO2 93% BMI 36.28 kg/m Lab Results Component Value Date HGBA1C 8.8 (H) 11/27/2019 Glucose (mg/dL) Date Value 12/12/2019 167 (H) Creatinine (mg/dL) Date Value 12/12/2019 0.89 Lab Results Component Value Date CHOL 115 11/27/2019 TRIG 177 (H) 11/27/2019 HDL 28 (L) 11/27/2019 LDLCALC 52 11/27/2019 Lab Results Component Value Date TSH 1.63 11/27/2019 No results found for: FREET4 Lab Results Component Value Date WBC 4.12 (L) 12/12/2019 HGB 10.8 (L) 12/12/2019 HCT 35.6 (L) 12/12/2019 MCV 86.2 12/12/2019 PLT 203 12/12/2019 This SmartLink has not been configured with any valid records. This SmartLink has not been configured with any valid records. Laboratory and Additional Data Reviewed: Laboratory 12/13/19 8:54 AM Medications 12/13/19 8:54 AM Transcriptions 12/13/19 8:54 AM Thank you for this consultation, we will continue to follow this patient with you. Prachi Frankel PA-C * Phoebe Duncan RN - 12/13/2019 7:20 AM EDT Date: 12/13/2019 New labs/ results as of last note: T-Max: 98.8 Output: Urine 2650 ml Stool Update from previous note Current Antibiotics: Merrem 1,000 mg IV every 12 Hours Previous Antibiotic: Rocephin 2 gm IV every 24 Hours Ancef 2,000 mg IV every 8 Hours Pre/Post Procedure I have personally reviewed the labs and results Test results Laboratory and Additional Data Reviewed: Current Cultures: 12/10/2019 Right Foot Wound Aerobic Culture: Normal Chalino After 48 Hours. Final 12/10/2019 Right foot wound, anaerobic culture: No anaerobic growth at 2 days. Final 12/08/2019 Urine Aerobic Culture: No Growth (<1,000 CFU/mL). Final. 12/07/2019 Urine Aerobic Culture on arrival to Nursing Rehab Unit: No Growth (<1,000 CFU/mL). Final. 12/02/2019 Right Foot Tissue Aerobic Culture: Normal Chalino After 48 Hours. Final. 12/02/2019 Right Foot Tissue AFB Culture: No Acid Fast Bacilli Seen. Preliminary. 12/02/2019 Right Foot Tissue Anaerobic Culture: No Anaerobic Growth at 2 Days. Final. 12/02/2019 Right Foot Tissue Fungus Culture: Fungal Culture in Progress. Preliminary. 12/01/2019 Blood Culture #1: No Growth After 5 Days. Final. 12/01/2019 Blood Culture #2: No Growth After 5 Days. Final. 11/30/2019 Right Foot Wound Aerobic Culture: Normal Chalino After 48 Hours. Final. 11/21/2019 Left Leg Wound Aerobic Culture: Normal Chalino After 48 Hours. Final. 11/20/2019 Right Foot Tissue Aerobic Culture: Moderate Growth Enterobacter cloacae complex, S=Youssef Sensitive. Final. 11/20/2019 Right Foot Tissue Anaerobic Culture: No Anaerobic Growth at 2 Days. Final. 11/20/2019 Right Foot Bone Aerobic Culture: Light Growth Enterobacter Cloacae Complex, S=Youssef Sensitive. Final. 11/20/2019 Right Foot Bone Anaerobic Culture: No Anaerobic Growth at 2 Days. Final * Nicholas Sanon - 12/13/2019 7:03 AM EDT OCCUPATIONAL THERAPY Daily Progress Note Therapy Precautions Orthotic Devices: Yes Lower Extremity: External Fixator Weight Bearing Status: X RLE: Non Wt bearing LLE: Wt bearing as tolerated General Rehab Precautions: Fall risk Cognition Overall Cognitive Status: Within Functional Limits Arousal/Alertness: Appropriate responses to stimuli Orientation Level: Oriented X4 Executive functioning: WFL Safety Judgment: Decreased awareness of need for safety Problem Solving: Able to problem solve independently Attention: Attends to quiet environment Hearing Status: WFL Social Interaction: WFL ADL/IADL Meal Prep: Mod I, Use of adaptive equipment Grooming : Modified independence seated in w/ for oral care and hair combing UE Dressing: Modified independence seated EOB LE Dressing: Modified independence seated EOB Footwear: Mod I seated EOB Home Management: Modified independence w/ level Skilled intervention: Pt completed home management and meal prep from / level. Pt was able retreive/return all items from upper cabinets and counter level using long handled inspection supervisor. Pt able to complete meal prep correctly and safely. Pt completed home management task with mod I (washing dishes and wiping table) from /. Pt did not experience any difficulty during either of these tasks stating, I do this all at home from w/ level. Bed Mobility Supine to Sit: Modified independence(with HOB raised) Functional Transfers Bed to Chair Transfers: Stand by assist(lateral transfer) Fx mobilty: Mod I in w/c around OT kitchen Skilled intervention: Pt completed lateral transfer from bed to w/c with SBA for safety.Edu pt on adhering to NWB for transfer, pt stated he adhered to NWB precautions for RLE during transfer. Home Living Type of Home: House Home Layout: One level, Able to live on main level with bedroom/bathroom, Ramped entrance Bathroom Shower/Tub: Tub/shower unit Bathroom Toilet: Standard Bathroom Equipment: Tub transfer bench, Hand-held shower Bathroom Accessibility: Accessible via walker Home Equipment: Wheeled Walker, Wheelchair-manual(lewler scooter, ) Additional Comments: Just recently was at [facility] for therapy Prior Level of Function Level of [place]: Independent with ADLs and functional transfers, Independent with homemaking with ambulation Lives With: Alone Receives Help From: Family ADL Assistance: Independent Homemaking Assistance: Independent Vocational: On disability Leisure: (cooking, shopping sports/electronics, target shoot, read, ) Comments: likes to build 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 Exit Protocol Followed: Yes For complete objective data, detailed plan of care and patient education refer to: OT EVALUATION flow sheet, OT TREATMENT flow sheet, patient Plan of Care, Plan of Care progress note, and Patient Education. * Sinai Lopez MD - 12/12/2019 8:52 PM EDT Physical Medicine & Rehabilitation Inpatient Progress 12/12/2019 Sinai Lopez MD [facility] Nursing Rehab Patient: Dyllan Huertas Date of : 1960 (59 y.o.) PCP: Rohit Aguilar MD Date of Admission: 12/06/2019 ASSESSMENT/PLAN: Rehabilitation Diagnosis: Rehab Impairement Code (JOSE): Ortho (12/05/19 0700) Ortho IGC: 08.9 - Other Orthopaedic (12/05/19 0700) Discharge Barriers: Mobility, ADL, Self Care Impairment: Intensive PT/OT Decreased Endurance: Intensive PT/OT , patient requires AFO on left lower limb discussed with patient and PT Skin: Turn every 2 hours, monitor for skin breakdown per rehabilitation nursing, dressing changes per podiatry Nutritional Status: Nutrition Consult Pulmonary Rehabilitation: Encourage incentives spirometry and deep breathing exercises Neurogenic Bladder: remove schulte monitor left lower limb charco ankle -obtain Xray -screw broken in left lower limb - per podiatry no change in acitivty restrictions Mixed hyperlipidemia Assessment & Plan Statin. 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 Consult endocrine * Osteomyelitis (HCC) Assessment & Plan ID following, podiatry following. See rehab plan. Therapy Updates: patient has progressed to CGA with slide board transfers Attestation: Considering all of the information above, it is my best judgment that this patient continues to require an intensive rehabilitation multidisciplinary program as previously described due to the necessity of medical management, rehabilitation needs, and complexity of nursing care under the supervision of a rehabilitation physician (patient requires at least 3 rehab physician visits per week). It can be reasonably expected that patient will participate in and benefit from a multidisciplinary team approach to maximize functional independence that is best served with acute inpatient rehabilitationas opposed to lower level of care. The teams needed are: Rehabilitation Nursing for medication management, bowel/bladder care, skin care, and respiratory care Physical Therapy for strengthening, endurance, mobility, gait and balance training, ROM, ADL's, andpatient/family training Occupational Therapy for strengthening, endurance, mobility, gait and balance training, ROM, ADL's,and patient/family training Rehabilitation Psychology for coping Therapeutic Recreation for community re-entry Social Work for integrated social support and discharge planning SUBJECTIVE: Date of Admission: 12/06/2019 Informant(s): Patient History of Present Illness: Patient reports that he continues to have no bladder sensation even with bladder training. Review of Systems: All pertinent positives and negative in HPI/Interval History. All others negative. Allergies: Patient has no known allergies. Current HOSPITAL Medications: Current Facility-Administered Medications Medication Dose Route Frequency Provider Last Rate Last Dose acetaminophen (TYLENOL) tablet 650 mg 650 mg Oral Q4H PRN Helena Sheldon, DE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 650 mg at 12/09/19 2142 albuterol (PROVENTIL) 2.5 mg /3 mL (0.083 %) nebulizer solution 2.5 mg 2.5 mg Inhalation Q2H PRN Helena Sheldon CNP aspirin EC tablet 162 mg 162 mg Oral Daily Helena Sheldon CNP 162 mg at 12/12/19 0830 atorvastatin (LIPITOR) tablet 40 mg 40 mg Oral Nightly Helena Sheldon DE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 40 mg at 12/11/19 2218 bisacodyL (DULCOLAX) suppository 10 mg 10 mg Rectal Daily PRN Helena Sheldon DE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 10 mg at 12/08/19 2242 calcium carbonate (TUMS) chewable tablet 1,000 mg 1,000 mg Oral Daily Helena Sheldon DE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 1,000mg at 12/12/19 0830 carvediloL (COREG) tablet 12.5 mg 12.5 mg Oral BID Helena Sheldon CNP 12.5 mg at 12/12/19 0830 docusate sodium (COLACE) capsule 100 mg 100 mg Oral Daily Helena Sheldon DE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 100 mg at 12/12/19 0830 docusate sodium (COLACE) capsule 100 mg 100 mg Oral BID PRN Helena Sheldon CNP 100 mg at 12/12/19 1724 fenofibrate tablet 160 mg 160 mg Oral Daily with breakfast Helena Sheldon CNP 160 mg at 12/12/19 0830 gabapentin (NEURONTIN) capsule 300 mg 300 mg Oral Q8H LESLEY Helena Sheldon CNP 300 mg at 12/12/19 1723 insulin glargine (LANTUS) injection 35 Units 35 Units Subcutaneous BID Andrés Andre CNP 35 Units at 12/12/19 0835 insulin lispro (HumaLOG) injection 0-15 Units 0-15 Units Subcutaneous at bedtime Helena Sheldon CNP 2 Units at 12/07/19 2111 insulin lispro (HumaLOG) injection 0-30 Units 0-30 Units Subcutaneous TID Andrés Andre CNP 12 Units at 12/12/19 1724 levothyroxine (SYNTHROID, LEVOTHROID) tablet 112 mcg 112 mcg Oral Daily Helena Sheldon CNP 112mcg at 12/12/19 0555 magnesium oxide (MAG-OX) tablet 400 mg 400 mg Oral Daily Helena Sheldon CNP 400 mg at melatonin Tab 10 mg 10 mg Oral at bedtime Helena Sheldon DE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 10 mg at 12/11/19 2218 meropenem (MERREM) 1000 mg in sodium chloride (NS) 0.9% 50 mL (premix) 1,000 mg Intravenous Q12H Maria Isabel Awad MD 100 mL/hr at 12/12/19 1821 1,000 mg at 12/12/19 1821 metFORMIN (GLUCOPHAGE) tablet 1,000 mg 1,000 mg Oral BID with meals Helena Sheldon CNP 1,000 mg at 12/12/19 1723 naloxone (NARCAN) injection 0.1 mg 0.1 mg Intravenous PRN Helena Sheldon CNP And naloxone (NARCAN) injection 0.4 mg 0.4 mg Intravenous PRN Helena Sheldon CNP nitroGLYCERIN (NITROSTAT) SL tablet 0.4 mg 0.4 mg Sublingual Q5 Min PRN Helena Sheldon CNP ondansetron (ZOFRAN-ODT) disintegrating tablet 4 mg 4 mg Oral Q6H PRN Helena Sheldon CNP psyllium (METAMUCIL) powder 1 packet 1 packet Oral Daily Kyung Doran, [facility],PharmD 1 packet at 12/12/19 0831 senna (SENOKOT) tablet 8.6 mg 1 tablet Oral BID PRN Helena Sheldon CNP sodium phosphates (FLEETS ADULT) 19-7 gram/118 mL enema 1 each 1 each Rectal Daily PRN Helena Jaimes CNP tamsulosin (FLOMAX) 24 hr capsule 0.4 mg 0.4 mg Oral After evening meal Helena Sheldon CNP 0.4mg at 12/12/19 1724 traZODone (DESYREL) tablet 50 mg 50 mg Oral Nightly PRN Helena Sheldon CNP OBJECTIVE: Physical Examination: BP 118/67 Pulse 89 Temp 98.8 F (37.1 C) (Oral) Resp 16 Ht 5' 11 Wt 118 kg (260 lb 2.3 oz) SpO2 92% BMI 36.28 kg/m GENERAL: General Appearance: In no apparent distress, well nourished HEENT: Normocephalic, atraumatic, neck supple, EOMI, PER Respiratory: On room air, no respiratory distress Cardiovascular: Peripheral pulses palpable, 2+ edema b/l Abdomen: Nontender, nondistended Musculoskeletal: left charcot ankle; s/p right ex-fix and debridement with wound closure; decreasedPROM of left ankle dorsiflexion and plantar flexion. Skin: ZECHARIAH wraps on lower limbs, right lower limb dressing in tact. Psychiatric: Normal mood and affect, appropriate insight and judgement CRANIAL NERVES: II, III: Pupils: PER III, IV, : Eye Movements: Normal (EOMI, No ptosis, No nystagmus) V - Facial Sensation: Normal VII: Face Symmetry & Strength: Normal VIII Hearing: Normal IX, X Palate:: Normal XI - Shoulder Shrug: Normal XII - Tongue Protrusion: Normal GAIT: Unable to walk due to no assistance to safely evaluate COORDINATION & GROSS MOTOR: Abnormal Movements: None Tone: Normal MOTOR - MUSCLE STRENGTH: Right Muscle Strength Left 5 Shoulder Abduction 5 5 Elbow Flexion 5 5 Elbow Extension 5 5 Wrist Extension 5 5 Finger Abduction 5 5 Hip Flexion 5 5 Knee Extension 5 EDDI Knee Flexion 5 EDDI Dorsiflexion 4 EDDI Plantar Flexion 4 MOTOR MARTINO: 5 Normal Power 4 Movement against moderate resistance over a full range of motion 3 Movement against gravity over almost full range of motion 2 Movement with gravity eliminated over almost full range of motion 1 Trace Movement (flicker of contraction visible or palpable) 0 No Movement (no contraction visible or palpable) EDDI Unable to Assess SENSATION: Light Touch: impaired Position Sense: impaired Lab Results Component Value Date ALBUMIN 2.5 (L) 12/12/2019 ALT 52 12/12/2019 AST 35 12/12/2019 BUN 26 (H) 12/12/2019 CALCIUM 9.7 12/12/2019 CL 106 12/12/2019 CHOL 115 11/27/2019 CREATININE 0.89 12/12/2019 GLUCOSE 167 (H) 12/12/2019 HDL 28 (L) 11/27/2019 HCT 35.6 (L) 12/12/2019 HGB 10.8 (L) 12/12/2019 HGBA1C 8.8 (H) 11/27/2019 MG 2.1 11/24/2019 PLT 203 12/12/2019 K 4.3 12/12/2019 NA 140 12/12/2019 TRIG 177 (H) 11/27/2019 WBC 4.12 (L) 12/12/2019 * Octavio Koch [employer]CR[employer]IP[employer] - 12/12/2019 3:09 PM EDT PHYSICAL THERAPY Daily Progress Note Therapy Precautions Therapy Precautions Orthotic Devices: Yes Lower Extremity: External Fixator, Right Weight Bearing Status: X RLE: Non Wt bearing LLE: Wt bearing as tolerated General Rehab Precautions: Fall risk Balance Balance Sitting Balance - Static: (good) Sitting Balance - Dynamic: (good) Transfers Transfers Lateral Transfers: Modified independence Skilled Intervention: Pt needed some cueing for proper placement of the slide board. but was then able to transfer without assistance, Gait/Locomotion Pt is independent with wheelchair Exercise Exercises Seated Exercises: tower columm shoulder depression and retraction therex. Skilled Intervention: laq's, marching and 10 min on the nustep at level 8. pt also completed 3 setsof 20 on the [email or web address]. Home Living Home Living Type of Home: House Home Layout: One level, Able to live on main level with bedroom/bathroom, Ramped entrance Bathroom Shower/Tub: Tub/shower unit Bathroom Accessibility: Accessible via walker Home Equipment: Wheeled Walker, Wheelchair-manual(lewler scooter, ) Additional Comments: Just recently was at [facility] for therapy Prior Level of Function Prior Function Level of [place]: Independent with ADLs and functional transfers, Independent with homemaking with ambulation Lives With: Alone Receives Help From: Family ADL Assistance: Independent Homemaking Assistance: Independent Vocational: On disability Leisure: (cooking, shopping sports/electronics, target shoot, read, ) Comments: likes to build 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 Exit Protocol Followed: Yes For complete objective data, detailed plan of care and patient education refer to: PT EVALUATION flow sheet, PT TREATMENT flow sheet, patient Plan of Care, Plan of Care progress note, and Patient Education. * Alena Mora DPM - 12/12/2019 1:34 PM EDT Podiatry Inpatient Follow-up Alena Mora DPM IRF Patient: Dyllan Huertas Date of : 1960 (59 y.o.) PCP: Rohit Aguilar MD ASSESSMENT/PLAN: Dyllan Huertas 59 y.o. male is POD#6 - status post irrigation and debridement with reclosure of right plantar wound and adjustment of external fixator construct (DOS: 12/01/2019 - Dr. Mora) Status post right midfoot wedge resection and application of external fixator for Charcot reconstruction (Date of surgery 11/20/2019 -Dr. Mora). Plan: Patient was seen and evaluated. Discussed all clinical findings. He is doing very well today Continue IV antibiotics per Dr. Awad's recommendation Dressing was changed today with Nursing. All pins were cleaned. Patient can continue physical therapy Strict NWB to right lower extremity at all times WBAT to left lower extremity in good supportive shoes No need for dressing change tomorrow. Will return on for follow up evaluation. Please call with any questions or concerns regarding this patient's care. Alena Mora DPM, MSBS Podiatric Physician and Surgeon [phone] SUBJECTIVE: History Since Last Visit: Patient is a pleasant 59-year-old male who is status post irrigation and debridement with re-closure of right plantar ulceration, and adjustment of external fixator construct. He states that he is doing well. No pedal complaints. No pain. No fevers, nausea, vomiting, chestpain, shortness of breath, or any other constitutional symptoms. Interpretation of Testing: I personally reviewed the labs and agree with the interpretation(s). Review of Systems: Constitutional:No fever, no weight loss Resp:No dyspnea. No wheezing Endo:No polyuria Allergic/Immunologic:No hives Psych:No unusual mood swings All other systems reviewed and negative other than HPI OBJECTIVE: Physical Examination: BP 130/75 Pulse 90 Temp 99 F (37.2 C) (Oral) Resp 16 Ht 5' 11 Wt 118 kg (260 lb 2.3 oz) SpO2 96% BMI 36.28 kg/m Vascular: DP and PT pulses are palpable 2/4. Cap refill time is brisk to distal digits. Skin temperature is warm to warm from proximal tibial tuberosity to distal digits. Edema much improved from right foot. Neuro: Gross sensation is intact. Protective sensation is absent. Dermatologic: Surgical incision site is well coapted with sutures intact with some maceration to incision. No erythema, edema, or any acute signs of infection. All pin sites are dry without erythema or edema. No drainage from pin sites. Musculoskeletal: Patient is able to wiggle digits. Compartments are soft and compressible. No calf pain. Laboratory and Additional Data Reviewed: Reviewed 12/16/19 6:35 AM: Laboratory, Microbiology, Medications and Transcriptions * Bhakti Shields, OT - 12/12/2019 1:10 PM EDT OCCUPATIONAL THERAPY Daily Progress Note Therapy Precautions Orthotic Devices: Yes Lower Extremity: External Fixator, Right Weight Bearing Status: X RLE: Non Wt bearing LLE: Wt bearing as tolerated General Rehab Precautions: Fall risk Cognition Overall Cognitive Status: Within Functional Limits Arousal/Alertness: Appropriate responses to stimuli Orientation Level: Oriented X4 Executive functioning: WFL Safety Judgment: Decreased awareness of need for safety Problem Solving: Able to problem solve independently Attention: Attends to quiet environment Hearing Status: WFL Social Interaction: WFL Functional Transfers Toilet Transfers: Min, Contact Guard(slide board) Skilled Intervention: Toilet transfers are simulated to BSC to prepare for discharge home. Time is spent educating patient on drop-arm commodes and safety needs for dycem with slide board placement on BSC. Pt verbalized understanding. Requires verbal cuing to correct w/c alignment with BSC, transferring with Min A for slide board transfers to/from commode. Pt open to trialing lateral transfer, increased ease noted without use of slide board completing two transfers with CGA. Exercise Seated Exercise: Pt instructed in BUE strengthening exercises from w/c level with use of free weights to improve UB strength for functional transfers. Pt completes 2 sets of 15 reps each of isolated shoulder flexion, abduction, chest press, & horizontal abduction with 3 lb weight, downgrading the latter exercise with 2 lb weight 2* fatigue in the RUE. Pt instructed in 2 lb overhead triceps strengthening and 5 lb biceps strengthening. Home Living Type of Home: House Home Layout: One level, Able to live on main level with bedroom/bathroom, Ramped entrance Bathroom Shower/Tub: Tub/shower unit Bathroom Toilet: Standard Bathroom Equipment: Tub transfer bench, Hand-held shower Bathroom Accessibility: Accessible via walker Home Equipment: Wheeled Walker, Wheelchair-manual(lewler scooter, ) Additional Comments: Just recently was at [facility] for therapy Prior Level of Function Level of [place]: Independent with ADLs and functional transfers, Independent with homemaking with ambulation Lives With: Alone Receives Help From: Family ADL Assistance: Independent Homemaking Assistance: Independent Vocational: On disability Leisure: (cooking, shopping sports/electronics, target shoot, read, ) Comments: likes to build models, pt stayed in w/c most of the day, walked short distances at home, but was able to walk around stores ok though Handoff given to PT. Exit Protocol Followed: Yes For complete objective data, detailed plan of care and patient education refer to: OT EVALUATION flow sheet, OT TREATMENT flow sheet, patient Plan of Care, Plan of Care progress note, and Patient Education. * Helena Sheldon CNP - 12/12/2019 11:43 AM EDT [facility] Medicine Inpatient Consult Follow-up 12/12/2019 Helena Sheldon CNP Patient: Dyllan Huertas Date of : 1960 (59 y.o.) PCP: Rohit Aguilar MD Referring Provider: Sinai Lopez* Consult: Alisa Singh MD: Hospitalist assistance with medical management ASSESSMENT/PLAN: Principal Problem: Osteomyelitis (HCC) Active Problems: 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) JAYDEN (obstructive sleep apnea) Mixed hyperlipidemia Benign prostatic hyperplasia with urinary retention Essential hypertension S/P foot surgery, right S/P foot surgery, right Assessment & Plan Dr. Mora podiatry consulted to manage wound. Extensive wound care is needed. Non wt bearing. Essential hypertension Assessment & Plan Monitor blood pressure per shift. Check kidney function. Continue coreg Benign prostatic hyperplasia with urinary retention Assessment & Plan Has been straight cathing at home. Follows with Dr. Izquierdo. Bladder training, remove schulte, bladder scan and straight cath. Pt has no bladder sensation Mixed hyperlipidemia Assessment & Plan Continue lipitor and fenofibrate. Uses crestor at home. Monitor liver function JAYDEN (obstructive sleep apnea) Assessment & Plan Encourage pt to wear cpap. Wear nasal cannula at 2L at night if he refuses Cpap 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) Assessment & Plan Consult endocrinology. DM has not been well controlled and the infection is making it worse. Monitor blood glucose ACHS, continue lantus, preprandial humalog, and sliding scale. Diabetic diet * Osteomyelitis (HCC) Assessment & Plan Consult ID and continue IV antibiotics. Non wt bearing on right foot. 12/07 Dr. Mora came and had nurse change leg dressing on his left foot with the external fixator. It took over an hour to clean and wrap each pin. Pt tolerated well. Compliant with therapy. Continues antibiotics 12/08 Afebrile, continues with antibiotic therapy DM being managed by endocrinology. Blood pressure is stable. Complaint with therapy 12/10 Glucose is becoming controlled. External fixator is intact No signs of infection Blood pressure is controlled New culture taken of wound due to some drainage. Dr. Andrey waad waiting for results 12/11 Blood glucose is controlled. Angelina Emanuel has changed antibiotic to Merepenem Pain is controlled. Constipation is resolved, metamucil has been started. Blood pressure is controlled. Afebrile SUBJECTIVE: History Since Last Visit: denies pain Current Scheduled Meds: aspirin 162 mg Oral Daily atorvastatin 40 mg Oral Nightly calcium carbonate 1,000 mg Oral Daily carvediloL 12.5 mg Oral BID docusate sodium 100 mg Oral Daily fenofibrate 160 mg Oral Daily with breakfast gabapentin 300 mg Oral Q8H LESLEY insulin glargine 35 Units Subcutaneous BID lispro insulin 0-15 Units Subcutaneous at bedtime insulin lispro 0-30 Units Subcutaneous TID AC levothyroxine 112 mcg Oral Daily magnesium oxide 400 mg Oral Daily melatonin 10 mg Oral at bedtime meropenem 1,000 mg Intravenous Q12H metFORMIN 1,000 mg Oral BID with meals psyllium husk 1 packet Oral Daily tamsulosin 0.4 mg Oral After evening meal Review of Systems: All other systems reviewed and negative other than HPI OBJECTIVE: Physical Examination: Vital Signs: BP 120/74 Pulse 82 Temp 98.4 F (36.9 C) (Oral) Resp 16 Ht 5' 11 Wt 118 kg (260 lb 2.3 oz) SpO2 94% BMI 36.28 kg/m Physical Exam General Appearance: Alert, well appearing, and in no acute distress. HEENT: Head - Normocephalic, atraumatic. Eyes - ALEKS bilaterally and EOMI. Ears - normal external appearance, hearing intact. Nose - normal, no erythema. Throat - mucous membranes moist, pharynx without lesions. Neck: Supple, trachea midline. Cardiovascular: S1, S2 normal. No murmurs, rubs, clicks or gallops appreciated. No pedal edema. Respiratory: Lungs clear to auscultation, no wheezes, rales or rhonchi heard. Abdomen: Soft, non-tender, normal bowel sounds, non-distended, no masses or organomegaly appreciated. Neurological: Limited movement in lower ext. Numbness from knee down. Musculoskeletal: Right foot s/p surgery, swollen. Left foot swollen from surgery history Skin: Normal coloration and turgor. No rashes. External fixator with large incision, on right foot Psych: Alert, oriented x 3. Normal mood and affect. Laboratory and Additional Data Reviewed: Results/Medications Reviewed 12/12/19 11:44 AM: Results from last 7 days Lab Units 12/12/19 0611 12/07/19 0455 SODIUM mmol/L 140 138 POTASSIUM mmol/L 4.3 3.9 CHLORIDE mmol/L 106 104 BUN mg/dL 26* 17 CREATININE mg/dL 0.89 0.86 GLUCOSE mg/dL 167* 243* CALCIUM mg/dL 9.7 9.4 Results from last 7 days Lab Units 12/12/19 0611 12/07/19 0454 WBC K/mcL 4.12* 6.95 HGB g/dL 10.8* 11.3* HCT % 35.6* 36.8* PLT K/mcL 203 210 Results from last 7 days Lab Units 12/12/19 0611 ALK PHOS U/L 83 BILIRUBIN TOTAL mg/dL 0.3 TOTAL PROTEIN g/dL 6.7 ALTR U/L 52 AST U/L 35 CULTURES: Reviewed 12/12/19 11:44 AM Radiology/Imaging: Reviewed 12/12/19 11:44 AM * Helena Finnegan PTA - 12/12/2019 11:24 AM EDT GROUP THERAPY Pt participated in group therapy for overall increase endurance, strength and mobility. Pt completes bicep curls, lateral flexion to each side, cervical rotation, extension/flexion and circles in each direction. Pt also completes laq's, marches, DF/PF and abduction/adduction with L LE only. Fwd bending and trunk rotation to improve core strength and mobility as well. Helena Finnegan, S[employer]IP[employer] HAND * Maria Isabel Awad MD - 12/12/2019 10:05 AM EDT 12/04/2019 Patient Name: Dyllan Huertas Admit Date: MR #: [id number] : 1960 Physicians: Rohit Aguilar MD (Family); No ref. provider found (Referring) Assessment and Plan: Impression Impression Right foot ulcer status post surgical intervention Severe Charcot deformity status post surgical intervention Enterobacter cloaca infection and gram-negative infection see cultures below RaullTela which is a gram-negative Acute osteomyelitis bone culture on 11/20/2019+ for the same pathogen that was present in January 2019is Enterobacter cloaca pansensitive RAJINDER none on chart 11/24/2019 Osteomyelitis as bone culture is positive from 11/20/2019 for Enterobacter cloaca 11/30/2019 New drainage from the pin site Elevated sed rate Elevated CRP Osteomyelitis right foot 12/01/2019 Osteomyelitis right foot Delayed healing of the plantar foot postop wound Cellulitis of the foot 12/04/2019 Status post surgical intervention with incision and drainage by Dr. Mora on 12/02/2019 cultures now with normal ch[employer] and fungus negative 12/05/2019 Sed rate 85 CRP 85 Per rehab physician there is a risk for the left ankle issues especially with diabetic neuropathy in the left foot and he has had right foot surgery 12/06/2019 OR cultures negative elevated CRP could be just postop We will continue IV antibiotics as planned till January 01 Rocephin 2 g every 24 hours 12/11/2019 Right foot wound with some maceration drainage 12/12/2019 CRP improving Plan 12/12/2019 Patient tolerating the meropenem Will await Dr. Mora to check the dressing on the wound at her next rounds Discontinue Rocephin Start meropenem 1 g IV every 12 for the Enterobacter and the other gram-negative that he had seen in the cultures especially with the extensive surgery that was done and he had some drainage on the weekend Continue IV antibiotics till January 01 CBC CMP sed rate CRP Will discuss with Dr. Lopez and Dr. Mora 12/08/2019 Rocephin continued till January 01 Urinary retention to be evaluated by Dr. Lopez Will await for Dr. Mora to do the dressings 12/07/2019 Rocephin 2 g IV 24 hours till January 01 Discontinue Schulte catheter CBC CMP sed rate CRP on Wednesday12/06/2019 Rocephin 2 g to 24 hours till January 01 CBC CMP sed rate CRP periodically Transfer to rehab he has been accepted Will follow the patient in rehab with Dr. Lopez and Dr. Mora 12/05/2019 Rocephin 2 g IV 24 hours continue till January 01 because of the second surgery Elevated sed rate CRP will be followed Await transfer to rehab if approved and bed available 12/04/2019 Rocephin 2 g IV every 24 hours CBC CMP sed rate CRP Rehab referral with Dr. Lopez here if possible We will discuss with podiatry I have discussed with hospitalist OR cultures normal chalino negative AFB and fungus Blood cultures negative so far 12/01/2019 Continue Rocephin till further cultures available CBC CMP sed rate CRP Blood cultures x2 half an hour apart He did bleed well even in the wound clinic yesterday at some point will order arterial Dopplers I have discussed with podiatry at length 11/30/2019 Culture the pin site that is bleeding and draining Follow-up CBC Liver function test Rocephin 2 g IV every 24 hours continue till December 18 May need to go up to additional 2 weeks afterMar 17 which will be January 01 we will decide based on lab results and clinical response If the culture of the pin site shows any additional pathogens may need to readmit for additional IVantibiotics and streamlining treatment Revisit 1 week both I have discussed with podiatry Chief Complaint/Reason for Visit: I am seeing this patient at the request of Dr. Boogie Phan MD. I have reviewed the current hospital record, available laboratory, cardiology and imaging studies as well as available out patient records. History of Present Illness: Admission H&P by Boogie Phan MD on 11/30/2019: Dyllan Huertas is a 59 y.o. male presenting from home with h/o diabetes on disability since 2014 related to a Charcot foot and diabetes developed an ulcer in the beginning of 2018 was being followed by Dr. Robles at the office we have cultures from last year in January with Enterobacter and since then culture with gram-negative bacteria also was seen by Dr. Mora was found to have severe Charcot a corrective surgery was done with placement of an external fixator on 11/20. Today at wound clinic follow up was found to have increased drainage from one of the pin sites, being admitted for continued IV ATB and possible OR/ exploration in am. Exam: Tmax: 99 Urine Output: 2000 Stool: not recorded PACU Vitals 12/12/19 0839 BP: 120/74 Pulse: 82 Resp: 16 Temp: 98.4 F (36.9 C) SpO2: 94% Allergies: no known allergies. Current Facility-Administered Medications: acetaminophen (TYLENOL) tablet 650 mg, 650 mg, Oral, Q4H PRN, Helena Sheldon CNP, 650 mg at 12/09/19 2142 albuterol (PROVENTIL) 2.5 mg /3 mL (0.083 %) nebulizer solution 2.5 mg, 2.5 mg, Inhalation, Q2H PRN, Helena Sheldon CNP aspirin EC tablet 162 mg, 162 mg, Oral, Daily, Helena Sheldon CNP, 162 mg at 12/12/19 0830 atorvastatin (LIPITOR) tablet 40 mg, 40 mg, Oral, Nightly, Helena Sheldon CNP, 40 mg at 12/11/19 2218 bisacodyL (DULCOLAX) suppository 10 mg, 10 mg, Rectal, Daily PRN, Helena Sheldon CNP, 10 mg at12/08/19 2242 calcium carbonate (TUMS) chewable tablet 1,000 mg, 1,000 mg, Oral, Daily, Helena Sheldon CNP, 1,000 mg at 12/12/19 0830 carvediloL (COREG) tablet 12.5 mg, 12.5 mg, Oral, BID, Helena Sheldon CNP, 12.5 mg at docusate sodium (COLACE) capsule 100 mg, 100 mg, Oral, Daily, Helena Sheldon CNP, 100 mg at 12/12/19829 docusate sodium (COLACE) capsule 100 mg, 100 mg, Oral, BID PRN, Helena Sheldon CNP fenofibrate tablet 160 mg, 160 mg, Oral, Daily with breakfast, Helena Sheldon CNP, 160 mg at 12/12/19829 gabapentin (NEURONTIN) capsule 300 mg, 300 mg, Oral, Q8H LESLEY, Helena Sheldon CNP, 300 mg at 12/12/19554 insulin glargine (LANTUS) injection 35 Units, 35 Units, Subcutaneous, BID, Andrés Andre CNP, 35 Units at 12/12/19834 insulin lispro (HumaLOG) injection 0-15 Units, 0-15 Units, Subcutaneous, at bedtime, Helena Sheldon CNP, 2 Units at 12/07/192110 insulin lispro (HumaLOG) injection 0-30 Units, 0-30 Units, Subcutaneous, TID AC, Andrés Andre CNP, 18 Units at 12/12/19833 levothyroxine (SYNTHROID, LEVOTHROID) tablet 112 mcg, 112 mcg, Oral, Daily, Helena Sheldon CNP, 112 mcg at 12/12/19554 magnesium oxide (MAG-OX) tablet 400 mg, 400 mg, Oral, Daily, Helena Sheldon CNP, 400 mg at 12/12/19829 melatonin Tab 10 mg, 10 mg, Oral, at bedtime, Helena Sheldon CNP, 10 mg at 12/11/198 meropenem (MERREM) 1000 mg in sodium chloride (NS) 0.9% 50 mL (premix), 1,000 mg, Intravenous, Q12H, Maria Isabel Awad MD, Last Rate: 100 mL/hr at 12/12/19553, 1,000 mg at 12/12/19553 metFORMIN (GLUCOPHAGE) tablet 1,000 mg, 1,000 mg, Oral, BID with meals, Helena Sheldon CNP, 1,000 mg at 12/12/19829 naloxone (NARCAN) injection 0.1 mg, 0.1 mg, Intravenous, PRN AND Notify physician, , , Until Discontinued AND naloxone (NARCAN) injection 0.4 mg, 0.4 mg, Intravenous, PRN, Helena Sheldon CNP nitroGLYCERIN (NITROSTAT) SL tablet 0.4 mg, 0.4 mg, Sublingual, Q5 Min PRN, Helena Sheldon CNP ondansetron (ZOFRAN-ODT) disintegrating tablet 4 mg, 4 mg, Oral, Q6H PRN, Helena Sheldon CNP psyllium (METAMUCIL) powder 1 packet, 1 packet, Oral, Daily, Kyung [place], [facility],PharmD, 1 packet at 12/12/19 0831 senna (SENOKOT) tablet 8.6 mg, 1 tablet, Oral, BID PRN, Helena Sheldon CNP sodium phosphates (FLEETS ADULT) 19-7 gram/118 mL enema 1 each, 1 each, Rectal, Daily PRN, Catarina Sheldon CNP tamsulosin (FLOMAX) 24 hr capsule 0.4 mg, 0.4 mg, Oral, After evening meal, Helena Sheldon CNP, 0.4 mg at 12/11/19 1718 traZODone (DESYREL) tablet 50 mg, 50 mg, Oral, Nightly PRN, Helena Sheldon CNP PMH/PSH/SH/ reviewed, no change except: Status post surgical intervention by Dr. Mora on 12/02/2019 12/05/2019 Patient was seen by rehab physician rehab evaluation in progress patient's left ankle is at risk because of right foot surgery and diabetic neuropathy in the left foot also 12/07/2019 patient is now in rehab Review of Systems: All systems were reviewed and negative except: Denies any fever chills no pain in the right leg and foot 12/06/2019 denies any fever chills or diarrhea 12/08/2019 Schulte had to be reinserted for urinary increase residual 12/11/2019 Dressing was changed by Dr. Mora on Wednesday there was some drainage culture was done there was some maceration culture result is normal chalino Dr. Mora's note was reviewed by me Medications Reviewed. Chart Reviewed. Exam Findings: Constitutional: HENT: Pupils reactive head: No oral candidiasis Eyes: No icterus Neck: Supple Cardiovascular: Heart S1-S2 2 by systolic murmur present no S3 Murmur Pulmonary/Chest: Clear Abdominal: Soft Musculoskeletal: No calf tenderness on the right leg Neurological: Has diabetic neuropathy with Charcot is able to wiggle the toes Skin postop dressing with Kerlix no drainage noted today no foul odor Patient drain has been removed by Dr. Mora over the weekend There was some maceration seen on the wound site on 12/10/2019 culture is normal chalino Schulte: Bard Schulte catheter with clear urine is being clamped now IV: Midline in the right arm site looks good denies any discomfort other: External fixator in place no drainage noted on the dressing wound to be examined by podiatrytoday Pin sites without any bleeding Wound to be examined by podiatry Laboratory and Additional Data Reviewed: Date: 12/12/2019 New labs/results as of last note Update from previous note Tmax: 99.2 Urine Output: 1600 Stool: not recorded Current Antibiotics: Merrem 1,000 mg IV every 12 Hours Previous Antibiotic: Rocephin 2 gm IV every 24 Hours Ancef 2,000 mg IV every 8 Hours Pre/Post Procedure I have personally reviewed the labs and results Test results Laboratory and Additional Data Reviewed: Labs: CMP 12/12/2019 06:11 Glucose: 167 BUN: 26 Creatinine: 0.89 Sodium: 140 Potassium: 4.3 Total Protein: 6.7 Albumin: 2.5 Alk Phos: 83 AST: 35 ALT: 52 Total Bilirubin: 0.3 CBC 12/12/2019 06:11 WBC: 4.12 RBC: 4.13 Hgb: 10.8 Hct: 35.6 Platelets: 203 Lymphocytes Abs: 0.66 CRP 12/12/2019 06:11 52.4 Current Cultures: 12/10/2019 Right Foot Wound Aerobic Culture: Normal Chalino After 24 Hours. Preliminary. 12/08/2019 Urine Aerobic Culture: No Growth (<1,000 CFU/mL). Final. 12/07/2019 Urine Aerobic Culture on arrival to Nursing Rehab Unit: No Growth (<1,000 CFU/mL). Final. 12/02/2019 Right Foot Tissue Aerobic Culture: Normal Chalino After 48 Hours. Final. 12/02/2019 Right Foot Tissue AFB Culture: No Acid Fast Bacilli Seen. Preliminary. 12/02/2019 Right Foot Tissue Anaerobic Culture: No Anaerobic Growth at 2 Days. Final. 12/02/2019 Right Foot Tissue Fungus Culture: Fungal Culture in Progress. Preliminary. 12/01/2019 Blood Culture #1: No Growth After 5 Days. Final. 12/01/2019 Blood Culture #2: No Growth After 5 Days. Final. 11/30/2019 Right Foot Wound Aerobic Culture: Normal Chalino After 48 Hours. Final. 11/21/2019 Left Leg Wound Aerobic Culture: Normal Chalino After 48 Hours. Final. 11/20/2019 Right Foot Tissue Aerobic Culture: Moderate Growth Enterobacter cloacae complex, S=Youssef Sensitive. Final. 11/20/2019 Right Foot Tissue Anaerobic Culture: No Anaerobic Growth at 2 Days. Final. 11/20/2019 Right Foot Bone Aerobic Culture: Light Growth Enterobacter Cloacae Complex, S=Youssef Sensitive. Final. 11/20/2019 Right Foot Bone Anaerobic Culture: No Anaerobic Growth at 2 Days. Final. Date: 12/11/2019 New labs/results as of last note Update from previous note Tmax: 98.7 Urine Output: 2500 Stool: X1 Current Antibiotics: Rocephin 2 gm IV every 24 Hours until 01/02/2020 Previous Antibiotic: Ancef 2,000 mg IV every 8 Hours Pre/Post Procedure I have personally reviewed the labs and results Test results Laboratory and Additional Data Reviewed: U/A 12/08/2019 Glucose: 150 Blood: Small WBC: 7 Bacteria: Rare Labs: Vitamin D, Total 12/07/2019 04:55 16 B12/Folate 12/07/2019 04:55 B12: 828 Folate: >20.0 Ferritin 12/07/2019 04:55 211 Iron 12/07/2019 04:55 30 CMP 12/07/2019 04:55 Glucose: 243 BUN: 17 Creatinine: 0.86 Sodium: 138 Potassium: 3.9 Total Protein: 6.6 Albumin: 2.4 Alk Phos: 76 AST: 28 ALT: 40 Total Bilirubin: 0.4 CBC 12/07/2019 04:54 WBC: 6.95 Hgb: 11.3 Hct: 36.8 Platelets: 210 Lymphocytes Abs: 0.64 CRP 12/05/2019 07:58 85.3 U/A 12/07/2019 Protein: 30 Glucose: >=500 Blood: Small Leukocyte Esterase: Trace Renal Epithelial: <1 Current Cultures: 12/10/2019 Right Foot Wound Aerobic Culture: Rare WBC. Rare Epithelial Cells. No Organisms Seen. Preliminary. 12/08/2019 Urine Aerobic Culture: No Growth (<1,000 CFU/mL). Final. 12/07/2019 Urine Aerobic Culture on arrival to Nursing Rehab Unit: No Growth (<1,000 CFU/mL). Final. 12/02/2019 Right Foot Tissue Aerobic Culture: Normal Chalino After 48 Hours. Final. 12/02/2019 Right Foot Tissue AFB Culture: No Acid Fast Bacilli Seen. Preliminary. 12/02/2019 Right Foot Tissue Anaerobic Culture: No Anaerobic Growth at 2 Days. Final. 12/02/2019 Right Foot Tissue Fungus Culture: Fungal Culture in Progress. Preliminary. 12/01/2019 Blood Culture #1: No Growth After 5 Days. Final. 12/01/2019 Blood Culture #2: No Growth After 5 Days. Final. 11/30/2019 Right Foot Wound Aerobic Culture: Normal Chalino After 48 Hours. Final. 11/21/2019 Left Leg Wound Aerobic Culture: Normal Chalino After 48 Hours. Final. 11/20/2019 Right Foot Tissue Aerobic Culture: Moderate Growth Enterobacter cloacae complex, S=Youssef Sensitive. Final. 11/20/2019 Right Foot Tissue Anaerobic Culture: No Anaerobic Growth at 2 Days. Final. 11/20/2019 Right Foot Bone Aerobic Culture: Light Growth Enterobacter Cloacae Complex, S=Youssef Sensitive. Final. 11/20/2019 Right Foot Bone Anaerobic Culture: No Anaerobic Growth at 2 Days. Final. Date: 12/08/2019 New labs/results as of last note Update from previous note Tmax: 99.2 Urine Output: 4950 Stool: not recorded Current Antibiotics: Rocephin 2 gm IV every 24 Hours until 01/02/2020 Previous Antibiotic: Ancef 2,000 mg IV every 8 Hours Pre/Post Procedure I have personally reviewed the labs and results Test results Laboratory and Additional Data Reviewed: U/A 12/08/2019 Glucose: 150 Blood: Small WBC: 7 Bacteria: Rare Labs: Vitamin D, Total 12/07/2019 04:55 16 B12/Folate 12/07/2019 04:55 B12: 828 Folate: >20.0 Ferritin 12/07/2019 04:55 211 Iron 12/07/2019 04:55 30 CMP 12/07/2019 04:55 Glucose: 243 BUN: 17 Creatinine: 0.86 Sodium: 138 Potassium: 3.9 Total Protein: 6.6 Albumin: 2.4 Alk Phos: 76 AST: 28 ALT: 40 Total Bilirubin: 0.4 CBC 12/07/2019 04:54 WBC: 6.95 Hgb: 11.3 Hct: 36.8 Platelets: 210 Lymphocytes Abs: 0.64 CRP 12/05/2019 07:58 85.3 U/A 12/07/2019 Protein: 30 Glucose: >=500 Blood: Small Leukocyte Esterase: Trace Renal Epithelial: <1 Current Cultures: 12/07/2019 Urine Aerobic Culture on arrival to Nursing Rehab Unit: No Growth, Incubation Continued.Preliminary. 12/02/2019 Right Foot Tissue Aerobic Culture: Normal Chalino After 48 Hours. Final. 12/02/2019 Right Foot Tissue AFB Culture: No Acid Fast Bacilli Seen. Preliminary. 12/02/2019 Right Foot Tissue Anaerobic Culture: No Anaerobic Growth at 2 Days. Final. 12/02/2019 Right Foot Tissue Fungus Culture: Fungal Culture in Progress. Preliminary. 12/01/2019 Blood Culture #1: No Growth After 5 Days. Final. 12/01/2019 Blood Culture #2: No Growth After 5 Days. Final. 11/30/2019 Right Foot Wound Aerobic Culture: Normal Chalino After 48 Hours. Final. 11/21/2019 Left Leg Wound Aerobic Culture: Normal Chalino After 48 Hours. Final. 11/20/2019 Right Foot Tissue Aerobic Culture: Moderate Growth Enterobacter cloacae complex, S=Youssef Sensitive. Final. 11/20/2019 Right Foot Tissue Anaerobic Culture: No Anaerobic Growth at 2 Days. Final. 11/20/2019 Right Foot Bone Aerobic Culture: Light Growth Enterobacter Cloacae Complex, S=Youssef Sensitive. Final. 11/20/2019 Right Foot Bone Anaerobic Culture: No Anaerobic Growth at 2 Days. Final. Radiology: Left Ankle X-Ray 12/07/2019 1. A new screw internally fixes the base of the 5th metatarsal to near anatomic alignment, however this screw is broken/fractured. 2. 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 Lateral subluxation of the 2nd through 5th metatarsal bases is again noted, as well as pes planus deformity. 3. Milder arthritis is noted in the tibiotalar joint and subtalar joint. 4. Large calcaneal enthesophytes are noted at the insertion sites of the plantar fascia and Achilles tendon. 5. No acute fracture, or other acute bony abnormality is seen. Date: 12/07/2019 New labs/results as of last note Update from previous note Tmax: 99.1 Urine Output: 1800 Stool: not recorded Current Antibiotics: Rocephin 2 gm IV every 24 Hours until 01/02/2020 Previous Antibiotic: Ancef 2,000 mg IV every 8 Hours Pre/Post Procedure I have personally reviewed the labs and results Test results Laboratory and Additional Data Reviewed: Labs: Vitamin D, Total 12/07/2019 04:55 16 B12/Folate 12/07/2019 04:55 B12: 828 Folate: >20.0 Ferritin 12/07/2019 04:55 211 Iron 12/07/2019 04:55 30 CMP 12/07/2019 04:55 Glucose: 243 BUN: 17 Creatinine: 0.86 Sodium: 138 Potassium: 3.9 Total Protein: 6.6 Albumin: 2.4 Alk Phos: 76 AST: 28 ALT: 40 Total Bilirubin: 0.4 CBC 12/07/2019 04:54 WBC: 6.95 Hgb: 11.3 Hct: 36.8 Platelets: 210 Lymphocytes Abs: 0.64 CRP 12/05/2019 07:58 85.3 U/A 12/07/2019 Protein: 30 Glucose: >=500 Blood: Small Leukocyte Esterase: Trace Renal Epithelial: <1 Current Cultures: 12/02/2019 Right Foot Tissue Aerobic Culture: Normal Chalino After 48 Hours. Final. 12/02/2019 Right Foot Tissue AFB Culture: No Acid Fast Bacilli Seen. Preliminary. 12/02/2019 Right Foot Tissue Anaerobic Culture: No Anaerobic Growth at 2 Days. Final. 12/02/2019 Right Foot Tissue Fungus Culture: Fungal Culture in Progress. Preliminary. 12/01/2019 Blood Culture #1: No Growth After 5 Days. Final. 12/01/2019 Blood Culture #2: No Growth After 5 Days. Final. 11/30/2019 Right Foot Wound Aerobic Culture: Normal Chalino After 48 Hours. Final. 11/21/2019 Left Leg Wound Aerobic Culture: Normal Chalino After 48 Hours. Final. 11/20/2019 Right Foot Tissue Aerobic Culture: Moderate Growth Enterobacter cloacae complex, S=Youssef Sensitive. Final. 11/20/2019 Right Foot Tissue Anaerobic Culture: No Anaerobic Growth at 2 Days. Final. 11/20/2019 Right Foot Bone Aerobic Culture: Light Growth Enterobacter Cloacae Complex, S=Youssef Sensitive. Final. 11/20/2019 Right Foot Bone Anaerobic Culture: No Anaerobic Growth at 2 Days. Final. Date: 12/06/2019 New labs/results as of last note Update from previous note Tmax: 99 Urine Output: 1250 Stool: not recorded Current Antibiotics: Rocephin 2 gm IV every 24 Hours until 01/02/2020 Previous Antibiotic: Ancef 2,000 mg IV every 8 Hours Pre/Post Procedure I have personally reviewed the labs and results Test results Laboratory and Additional Data Reviewed: Labs: CBC 12/05/2019 07:58 WBC: 7.98 Hgb: 11.4 Hct: 36.3 Platelets: 228 Lymphocytes Abs: 0.52 CMP 12/05/2019 07:58 Glucose: 223 BUN: 19 Creatinine: 0.86 Sodium: 139 Potassium: 4.1 Total Protein: 6.4 Albumin: 2.4 Alk Phos: 75 AST: 20 ALT: 31 Total Bilirubin: 0.4 CRP 12/05/2019 07:58 85.3 Current Cultures: 12/02/2019 Right Foot Tissue Aerobic Culture: Normal Chalino After 48 Hours. Final. 12/02/2019 Right Foot Tissue AFB Culture: No Acid Fast Bacilli Seen. Preliminary. 12/02/2019 Right Foot Tissue Anaerobic Culture: No Anaerobic Growth at 2 Days. Final. 12/02/2019 Right Foot Tissue Fungus Culture: Fungal Culture in Progress. Preliminary. 12/01/2019 Blood Culture #1: No Growth After 5 Days. Final. 12/01/2019 Blood Culture #2: No Growth After 5 Days. Final. 11/30/2019 Right Foot Wound Aerobic Culture: Normal Chalino After 48 Hours. Final. 11/21/2019 Left Leg Wound Aerobic Culture: Normal Chalino After 48 Hours. Final. 11/20/2019 Right Foot Tissue Aerobic Culture: Moderate Growth Enterobacter cloacae complex, S=Youssef Sensitive. Final. 11/20/2019 Right Foot Tissue Anaerobic Culture: No Anaerobic Growth at 2 Days. Final. 11/20/2019 Right Foot Bone Aerobic Culture: Light Growth Enterobacter Cloacae Complex, S=Youssef Sensitive. Final. 11/20/2019 Right Foot Bone Anaerobic Culture: No Anaerobic Growth at 2 Days. Final. Pathology: 12/02/2019 A. Soft tissue, Right Foot, excision: Non-specific ulcer. Date: 12/05/2019 New labs/results as of last note Update from previous note Tmax: 98.8 Urine Output: 2900 Stool: not recorded Current Antibiotics: Rocephin 2 gm IV every 24 Hours Previous Antibiotic: Ancef 2,000 mg IV every 8 Hours Pre/Post Procedure I have personally reviewed the labs and results Test results Laboratory and Additional Data Reviewed: Labs: CBC 12/05/2019 07:58 WBC: 7.98 Hgb: 11.4 Hct: 36.3 Platelets: 228 Lymphocytes Abs: 0.52 CMP 12/05/2019 07:58 Glucose: 223 BUN: 19 Creatinine: 0.86 Sodium: 139 Potassium: 4.1 Total Protein: 6.4 Albumin: 2.4 Alk Phos: 75 AST: 20 ALT: 31 Total Bilirubin: 0.4 CRP 12/05/2019 07:58 85.3 Current Cultures: 12/02/2019 Right Foot Tissue Aerobic Culture: Normal Chalino After 48 Hours. Final. 12/02/2019 Right Foot Tissue AFB Culture: No Acid Fast Bacilli Seen. Preliminary. 12/02/2019 Right Foot Tissue Anaerobic Culture: No Anaerobic Growth at 2 Days. Final. 12/02/2019 Right Foot Tissue Fungus Culture: Fungal Culture in Progress. Preliminary. 12/01/2019 Blood Culture #1: No Growth After 48 Hours. Preliminary. 12/01/2019 Blood Culture #2: No Growth After 48 Hours. Preliminary. 11/30/2019 Right Foot Wound Aerobic Culture: Normal Chalino After 48 Hours. Final. 11/21/2019 Left Leg Wound Aerobic Culture: Normal Chalino After 48 Hours. Final. 11/20/2019 Right Foot Tissue Aerobic Culture: Moderate Growth Enterobacter cloacae complex, S=Youssef Sensitive. Final. 11/20/2019 Right Foot Tissue Anaerobic Culture: No Anaerobic Growth at 2 Days. Final. 11/20/2019 Right Foot Bone Aerobic Culture: Light Growth Enterobacter Cloacae Complex, S=Youssef Sensitive. Final. 11/20/2019 Right Foot Bone Anaerobic Culture: No Anaerobic Growth at 2 Days. Final. Current Antibiotics: Rocephin 2 gm IV every 24 Hours Previous Antibiotic: Ancef 2,000 mg IV every 8 Hours Pre/Post Procedure I have personally reviewed the labs and results Test results Laboratory and Additional Data Reviewed: Results from last 7 days Lab Units 12/01/19 0648 11/30/19 1245 11/29/19 0655 SODIUM mmol/L 140 140 142 POTASSIUM mmol/L 5.0 4.9 5.1 CHLORIDE mmol/L 106 105 107 BUN mg/dL 22 24 36* CREATININE mg/dL 0.98 0.94 1.12 GLUCOSE mg/dL 223* 127* 108* CALCIUM mg/dL 9.1 9.3 9.3 Results from last 7 days Lab Units 12/01/19 0635 11/30/19 1245 WBC K/mcL 8.56 8.72 HGB g/dL 11.2* 10.8* HCT % 35.6* 35.4* PLT K/mcL 232 243 Results from last 7 days Lab Units 11/30/19 1245 ALK PHOS U/L 67 BILIRUBIN TOTAL mg/dL 0.3 TOTAL PROTEIN g/dL 6.5 ALTR U/L 56 AST U/L 42 Current Cultures: 12/02/2019 Right Foot Tissue Aerobic Culture: Normal Chalino After 24 Hours. Preliminary. 12/02/2019 Right Foot Tissue AFB Culture: No Acid Fast Bacilli Seen. Preliminary. 12/01/2019 Blood Culture #1: No Growth After 48 Hours. Preliminary. 12/01/2019 Blood Culture #2: No Growth After 48 Hours. Preliminary. 11/30/2019 Right Foot Wound Aerobic Culture: Normal Chalino After 48 Hours. Final. 11/21/2019 Left Leg Wound Aerobic Culture: Normal Chalino After 48 Hours. Final. 11/20/2019 Right Foot Tissue Aerobic Culture: Moderate Growth Enterobacter cloacae complex, S=Youssef Sensitive. Final. 11/20/2019 Right Foot Tissue Anaerobic Culture: No Anaerobic Growth at 2 Days. Final. 11/20/2019 Right Foot Bone Aerobic Culture: Light Growth Enterobacter Cloacae Complex, S=Youssef Sensitive. Final. 11/20/2019 Right Foot Bone Anaerobic Culture: No Anaerobic Growth at 2 Days. Final. Recent Cultures: 05/30/2019 Right Foot Tissue Aerobic Culture: Normal Chalino After 48 Hours. Final. 05/30/2019 Right Foot Tissue Anaerobic Culture: No Anaerobic Growth at 2 Days. Final. 03/23/2019 Right Foot Wound Aerobic Culture: Heavy Growth Raoultella [place], R=Ampicillin, S=Remainder of panel. 03/09/2019 Right Foot Wound Aerobic Culture: Normal Chalino After 48 Hours. Final. 02/09/2019 Right Foot Wound Aerobic Culture: Normal Chalino After 48 Hours. Final. 01/19/2019 Right Toe Two Wound Aerobic Culture: Heavy Growth Enterobacter Cloacae Complex, S=Youssef Sensitive. Final. Radiology: Right Foot X-Ray 12/02/2019 Intraoperative fluoroscopy provided. Severe bony deformity of the foot as described. Please correlate with operative note. Chest X-Ray 11/23/2019 1. Right arm PICC line in place with tip in superior vena cava. 2. No acute pulmonary disease. 3. Cardiomegaly with evidence of prior open heart surgery. 4. No acute osseous abnormality Right Foot X-Ray 11/20/2019 IMPRESSION: Intraoperative fluoroscopy for localization during right foot and ankle reconstruction and fixation. Please see operative report for details. Left Ankle X-Ray Ordered 11/20/2019 Right Foot X-Ray 11/20/2019 FINDINGS: Two views of the right foot were obtained. There are advanced changes of Charcot arthropathy throughout the right midfoot which appears similar compared to prior examination. There are postsurgical changes of resection of the right 2nd toe proximal phalangeal head. IMPRESSION: 1. Advanced changes of Charcot arthropathy throughout the right midfoot which appear unchanged compared to prior examination. Chest AP/PA X-Ray 11/16/2019 1. No acute pulmonary disease. 2. Cardiomegaly, with evidence of prior open heart surgery. 3. Multilevel degenerative changes of the thoracic spine. MR Right Foot 05/19/2019 1. There is a superficial soft tissue ulcer again seen along the plantar aspect of the midfoot, butthere is no evidence of abscess or osteomyelitis in this region. 2. Stable appearance of the sequela of severe neuropathic arthropathy of the midfoot with collapse of the midfoot again seen resulting in a rocker bottom deformity. 3. A moderate amount of diffuse subcutaneous edema along the dorsum of the foot may be due to reactive edema or a cellulitis, but this is nonspecific. Right Foot X-Ray 04/28/2019 1. Soft tissue irregularity involving the plantar aspect of the foot likely representing the reported ulcer. No bony destruction to suggest osteomyelitis. 2. No evidence of radiopaque foreign body. 3. Stable deformity and degenerative changes involving the midfoot. Findings are consistent with Charcot joint. NM White Cell Scan Spot Limited 03/08/2017 FINDINGS: A focal area of intense abnormal white blood cell migration is noted central plantar aspect of the right foot corresponding to the area of the wound demonstrated radiographically. No other focus of white blood cell migration abnormality is evident within the right or left foot. IMPRESSION: Focal area of abnormal white blood cell migration at the plantar aspect central right foot may be at the wound itself or may be involving the bone with associated fracture as demonstrated radiographically. Anatomic detail is insufficient for differentiation between the two. Renal U/S 03/07/2017 IMPRESSION: Severe thickening of the urinary bladder wall. This could be due to outlet obstruction with hypertrophy of the wall. If there is no such history, this should be evaluated with cystoscopy. CVPS: Arterial Doppler: not on file Venous Doppler: not on file 2D Echo 11/23/2019 Moderate LV enlargement with LVH. Global systolic dysfunction with segmental features. LVEF 30% Elevated LV filling pressures RV is dilated with severe RV dysfunction Mild mitral annular calcification, mild thickening of the aortic valve without hemodynamically significant valvular disease There is a atrial level right to left shunt identified with saline contrast with free breathing andValsalva most likely via PFO LVEF unchanged from to previous echo from 2017 Surgeries: Please see above for surgical history Procedure: Right Foot I&D ADJUSTMENT EXTERNAL FIXATOR Date: 12/02/2019 Surgery: Alena Mora DPM Procedure: RIGHT FOOT RECONSTRUCTION WITH APPLICATION OF CIRCULAR STATIC EXTERNAL FIXATION Date: 11/20/2019 Surgeon: Alena Mora DPM Procedure: ARTHROPLASTY 2ND TOE RIGHT FOOT Date: 01/25/2019 Surgeon: Rosa M Robles DPM Pathology: not on file * Bhakti Shields OT - 12/12/2019 9:15 AM EDT OCCUPATIONAL THERAPY Daily Progress Note Therapy Precautions Orthotic Devices: Yes Lower Extremity: External Fixator, Right Weight Bearing Status: X RLE: Non Wt bearing LLE: Wt bearing as tolerated General Rehab Precautions: Fall risk Cognition Overall Cognitive Status: Within Functional Limits Arousal/Alertness: Appropriate responses to stimuli Orientation Level: Oriented X4 Executive functioning: WFL Safety Judgment: Decreased awareness of need for safety Problem Solving: Able to problem solve independently Attention: Attends to quiet environment Hearing Status: WFL Social Interaction: WFL Functional Transfers Bed to Chair Transfers: Contact Guard, Stand by assist(Slide board) Skilled Intervention: Slide board transfers to/from mat table completed with CGA/SBA for safety, requires w/c stabilization from therapist. Pt able to place/remove slide board and armrest from w/c. Edu provided on leg rest removal. Pt attempting to maintain NWB status to the RLE but noted to have difficulty keeping RLE off floor. Patient with improved safety with longer slide board. Exercise Seated Exercise: Pt participates in variety of seated exercises to improve BUE strength necessary for functional transfers and self care tasks. Primus (ladder) completed from w/c level for overhead strengthening in flexion patterns, tolerates level 7 resistance without rest breaks x5 min duration. Acknowledged fatigue midway through exercise. Pt instructed in scapular rows, 15 reps x2 sets with medium red tubing followed by isolated ER strengthening x15 reps. Noted weakness in bilateral rotator cuffs, difficulty maintaining proper form for exercise. ROM arc completed in transfer of 24 keypads x2 sets to improve bilateral shoulder flexion and horizontal adduction with added 1 lb cuff weights to wrists. Trialed 2 lb weight, however significant trunk compensation to transfer keypads noted so downgrade of task completed. Zoomball activity x10 mins completed seated EOM in rapid ER/IR in horizontal plane to improve BUE strength and activity tolerance. Pt requires rest breaks following every 60-90 seconds of task. Fatigue noted in anterior/middle deltoids. Home Living Type of Home: House Home Layout: One level, Able to live on main level with bedroom/bathroom, Ramped entrance Bathroom Shower/Tub: Tub/shower unit Bathroom Toilet: Standard Bathroom Equipment: Tub transfer bench, Hand-held shower Bathroom Accessibility: Accessible via walker Home Equipment: Wheeled Walker, Wheelchair-manual(mayco rea, ) Additional Comments: Just recently was at [facility] for therapy Prior Level of Function Level of [place]: Independent with ADLs and functional transfers, Independent with homemaking with ambulation Lives With: Alone Receives Help From: Family ADL Assistance: Independent Homemaking Assistance: Independent Vocational: On disability Leisure: (cooking, shopping sports/electronics, target shoot, read, ) Comments: likes to build models, pt stayed in w/c most of the day, walked short distances at home, but was able to walk around stores ok though Handoff given to PT Group. Exit Protocol Followed: Yes For complete objective data, detailed plan of care and patient education refer to: OT EVALUATION flow sheet, OT TREATMENT flow sheet, patient Plan of Care, Plan of Care progress note, and Patient Education. * Helena Glass LPN - 12/12/2019 7:36 AM EDT Date: 12/12/2019 New labs/results as of last note Update from previous note Tmax: 99.2 Urine Output: 1600 Stool: not recorded Current Antibiotics: Merrem 1,000 mg IV every 12 Hours Previous Antibiotic: Rocephin 2 gm IV every 24 Hours Ancef 2,000 mg IV every 8 Hours Pre/Post Procedure I have personally reviewed the labs and results Test results Laboratory and Additional Data Reviewed: Labs: CMP 12/12/2019 06:11 Glucose: 167 BUN: 26 Creatinine: 0.89 Sodium: 140 Potassium: 4.3 Total Protein: 6.7 Albumin: 2.5 Alk Phos: 83 AST: 35 ALT: 52 Total Bilirubin: 0.3 CBC 12/12/2019 06:11 WBC: 4.12 RBC: 4.13 Hgb: 10.8 Hct: 35.6 Platelets: 203 Lymphocytes Abs: 0.66 CRP 12/12/2019 06:11 52.4 Current Cultures: 12/10/2019 Right Foot Wound Aerobic Culture: Normal Chalino After 24 Hours. Preliminary. 12/08/2019 Urine Aerobic Culture: No Growth (<1,000 CFU/mL). Final. 12/07/2019 Urine Aerobic Culture on arrival to Nursing Rehab Unit: No Growth (<1,000 CFU/mL). Final. 12/02/2019 Right Foot Tissue Aerobic Culture: Normal Chalino After 48 Hours. Final. 12/02/2019 Right Foot Tissue AFB Culture: No Acid Fast Bacilli Seen. Preliminary. 12/02/2019 Right Foot Tissue Anaerobic Culture: No Anaerobic Growth at 2 Days. Final. 12/02/2019 Right Foot Tissue Fungus Culture: Fungal Culture in Progress. Preliminary. 12/01/2019 Blood Culture #1: No Growth After 5 Days. Final. 12/01/2019 Blood Culture #2: No Growth After 5 Days. Final. 11/30/2019 Right Foot Wound Aerobic Culture: Normal Chalino After 48 Hours. Final. 11/21/2019 Left Leg Wound Aerobic Culture: Normal Chalino After 48 Hours. Final. 11/20/2019 Right Foot Tissue Aerobic Culture: Moderate Growth Enterobacter cloacae complex, S=Youssef Sensitive. Final. 11/20/2019 Right Foot Tissue Anaerobic Culture: No Anaerobic Growth at 2 Days. Final. 11/20/2019 Right Foot Bone Aerobic Culture: Light Growth Enterobacter Cloacae Complex, S=Youssef Sensitive. Final. 11/20/2019 Right Foot Bone Anaerobic Culture: No Anaerobic Growth at 2 Days. Final. * Sinai Lopez MD - 12/11/2019 7:10 PM EDT Physical Medicine & Rehabilitation Inpatient Progress 12/11/2019 Sinai Lopez MD [facility] Nursing Rehab Patient: Dyllan Huertas Date of : 1960 (59 y.o.) PCP: Rohit Aguilar MD Date of Admission: 12/06/2019 ASSESSMENT/PLAN: Rehabilitation Diagnosis: Rehab Impairement Code (JOSE): Ortho (12/05/19 0700) Ortho IGC: 08.9 - Other Orthopaedic (12/05/19 0700) Discharge Barriers: Mobility, ADL, Self Care Impairment: Intensive PT/OT Decreased Endurance: Intensive PT/OT , patient requires AFO on left lower limb discussed with patient and PT Skin: Turn every 2 hours, monitor for skin breakdown per rehabilitation nursing, dressing changes per podiatry Nutritional Status: Nutrition Consult Pulmonary Rehabilitation: Encourage incentives spirometry and deep breathing exercises Neurogenic Bladder: remove schulte monitor left lower limb charco ankle -obtain Xray -screw broken in left lower limb - per podiatry no change in acitivty restrictions Mixed hyperlipidemia Assessment & Plan Statin. 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 Consult endocrine * Osteomyelitis (HCC) Assessment & Plan ID following, podiatry following. See rehab plan. Therapy Updates: patient has progressed to mod assist with stand pivot transfers Attestation: Considering all of the information above, it is my best judgment that this patient continues to require an intensive rehabilitation multidisciplinary program as previously described due to the necessity of medical management, rehabilitation needs, and complexity of nursing care under the supervision of a rehabilitation physician (patient requires at least 3 rehab physician visits per week). It can be reasonably expected that patient will participate in and benefit from a multidisciplinary team approach to maximize functional independence that is best served with acute inpatient rehabilitationas opposed to lower level of care. The teams needed are: Rehabilitation Nursing for medication management, bowel/bladder care, skin care, and respiratory care Physical Therapy for strengthening, endurance, mobility, gait and balance training, ROM, ADL's, andpatient/family training Occupational Therapy for strengthening, endurance, mobility, gait and balance training, ROM, ADL's,and patient/family training Rehabilitation Psychology for coping Therapeutic Recreation for community re-entry Social Work for integrated social support and discharge planning SUBJECTIVE: Date of Admission: 12/06/2019 Informant(s): Patient History of Present Illness: Patient repots that therapies are gong well. He reports that he has been able to work on stand pivot transfers. He denies any pain. Review of Systems: All pertinent positives and negative in HPI/Interval History. All others negative. Allergies: Patient has no known allergies. Current HOSPITAL Medications: Current Facility-Administered Medications Medication Dose Route Frequency Provider Last Rate Last Dose acetaminophen (TYLENOL) tablet 650 mg 650 mg Oral Q4H PRN Helena Sheldon CNP 650 mg at 12/09/19 2142 albuterol (PROVENTIL) 2.5 mg /3 mL (0.083 %) nebulizer solution 2.5 mg 2.5 mg Inhalation Q2H PRN Helena Sheldon CNP aspirin EC tablet 162 mg 162 mg Oral Daily Helena Sheldon CNP 162 mg at 12/11/19 0815 atorvastatin (LIPITOR) tablet 40 mg 40 mg Oral Nightly Helena Sheldon CNP 40 mg at 12/10/19 2245 bisacodyL (DULCOLAX) suppository 10 mg 10 mg Rectal Daily PRN Helena Sheldon CNP 10 mg at 12/08/19 2242 calcium carbonate (TUMS) chewable tablet 1,000 mg 1,000 mg Oral Daily Helena Sheldon DE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 1,000mg at 12/11/19 0815 carvediloL (COREG) tablet 12.5 mg 12.5 mg Oral BID Helena Sheldon CNP 12.5 mg at 12/11/19 0815 docusate sodium (COLACE) capsule 100 mg 100 mg Oral Daily Helena Sheldon CNP 100 mg at 12/11/19 0815 docusate sodium (COLACE) capsule 100 mg 100 mg Oral BID PRN Helena Sheldon CNP fenofibrate tablet 160 mg 160 mg Oral Daily with breakfast Helena Sheldon CNP 160 mg at 12/11/19 0822 gabapentin (NEURONTIN) capsule 300 mg 300 mg Oral Q8H LESLEY Helena Sheldon CNP 300 mg at 12/11/19 1320 insulin glargine (LANTUS) injection 35 Units 35 Units Subcutaneous BID Andrés Andre CNP 35 Units at 12/11/19 0816 insulin lispro (HumaLOG) injection 0-15 Units 0-15 Units Subcutaneous at bedtime Helena Sheldon CNP 2 Units at 12/07/19 2111 insulin lispro (HumaLOG) injection 0-30 Units 0-30 Units Subcutaneous TID AC Andrés Andre CNP 14 Units at 12/11/19 1716 levothyroxine (SYNTHROID, LEVOTHROID) tablet 112 mcg 112 mcg Oral Daily Helena Sheldon CNP 112mcg at 12/11/19 0513 magnesium oxide (MAG-OX) tablet 400 mg 400 mg Oral Daily Helena Sheldon CNP 400 mg at 12/11/200715 melatonin Tab 10 mg 10 mg Oral at bedtime Helena Sheldon CNP 10 mg at 12/10/19 2244 meropenem (MERREM) 1000 mg in sodium chloride (NS) 0.9% 50 mL (premix) 1,000 mg Intravenous Q12H Maria Isabel Awad MD 100 mL/hr at 12/11/19 1714 1,000 mg at 12/11/19 1714 metFORMIN (GLUCOPHAGE) tablet 1,000 mg 1,000 mg Oral BID with meals Helena Sheldon CNP 1,000 mg at 12/11/19 1718 naloxone (NARCAN) injection 0.1 mg 0.1 mg Intravenous PRN Helena Sheldon CNP And naloxone (NARCAN) injection 0.4 mg 0.4 mg Intravenous PRN Helena Sheldon CNP nitroGLYCERIN (NITROSTAT) SL tablet 0.4 mg 0.4 mg Sublingual Q5 Min PRN Helena Sheldon CNP ondansetron (ZOFRAN-ODT) disintegrating tablet 4 mg 4 mg Oral Q6H PRN Helena Sheldon CNP psyllium (METAMUCIL) powder 1 packet 1 packet Oral Daily Kyung Doran, [facility],PharmD 1 packet at 12/11/19 1254 senna (SENOKOT) tablet 8.6 mg 1 tablet Oral BID PRN Helena Sheldon CNP sodium phosphates (FLEETS ADULT) 19-7 gram/118 mL enema 1 each 1 each Rectal Daily PRN Helena Jaimes CNP tamsulosin (FLOMAX) 24 hr capsule 0.4 mg 0.4 mg Oral After evening meal Helena Sheldon CNP 0.4mg at 12/11/19 1718 traZODone (DESYREL) tablet 50 mg 50 mg Oral Nightly PRN Helena Sheldon CNP OBJECTIVE: Physical Examination: BP (!) 143/73 (BP Location: Left arm, Patient Position: Lying) Pulse 90 Temp 99.2 F (37.3 C) (Oral) Resp 16 Wt 118 kg (260 lb 2.3 oz) SpO2 95% BMI 36.28 kg/m GENERAL: General Appearance: In no apparent distress, well nourished HEENT: Normocephalic, atraumatic, neck supple, EOMI, PER Respiratory: On room air, no respiratory distress Cardiovascular: Peripheral pulses palpable, 2+ edema b/l Abdomen: Nontender, nondistended Musculoskeletal: left charcot ankle; s/p right ex-fix and debridement with wound closure; decreasedPROM of left ankle dorsiflexion and plantar flexion. Skin: ZECHARIAH wraps on lower limbs, right lower limb dressing in tact. Psychiatric: Normal mood and affect, appropriate insight and judgement CRANIAL NERVES: II, III: Pupils: PER III, IV, : Eye Movements: Normal (EOMI, No ptosis, No nystagmus) V - Facial Sensation: Normal VII: Face Symmetry & Strength: Normal VIII Hearing: Normal IX, X Palate:: Normal XI - Shoulder Shrug: Normal XII - Tongue Protrusion: Normal GAIT: Unable to walk due to no assistance to safely evaluate COORDINATION & GROSS MOTOR: Abnormal Movements: None Tone: Normal MOTOR - MUSCLE STRENGTH: Right Muscle Strength Left 5 Shoulder Abduction 5 5 Elbow Flexion 5 5 Elbow Extension 5 5 Wrist Extension 5 5 Finger Abduction 5 5 Hip Flexion 5 5 Knee Extension 5 EDDI Knee Flexion 5 EDDI Dorsiflexion 4 EDDI Plantar Flexion 4 MOTOR MARTINO: 5 Normal Power 4 Movement against moderate resistance over a full range of motion 3 Movement against gravity over almost full range of motion 2 Movement with gravity eliminated over almost full range of motion 1 Trace Movement (flicker of contraction visible or palpable) 0 No Movement (no contraction visible or palpable) EDDI Unable to Assess SENSATION: Light Touch: impaired Position Sense: impaired Lab Results Component Value Date ALBUMIN 2.4 (L) 12/07/2019 ALT 40 12/07/2019 AST 28 12/07/2019 BUN 17 12/07/2019 CALCIUM 9.4 12/07/2019 CL 104 12/07/2019 CHOL 115 11/27/2019 CREATININE 0.86 12/07/2019 GLUCOSE 243 (H) 12/07/2019 HDL 28 (L) 11/27/2019 HCT 36.8 (L) 12/07/2019 HGB 11.3 (L) 12/07/2019 HGBA1C 8.8 (H) 11/27/2019 MG 2.1 11/24/2019 PLT 210 12/07/2019 K 3.9 12/07/2019 NA 138 12/07/2019 TRIG 177 (H) 11/27/2019 WBC 6.95 12/07/2019 Pending Lab and Radiology Results Order Current Status Wound Anaerobic Culture In process Wound Aerobic Culture Preliminary result * Octavio Koch PTA - 12/11/2019 2:19 PM EDT PHYSICAL THERAPY Daily Progress Note Therapy Precautions Therapy Precautions Orthotic Devices: Yes Lower Extremity: External Fixator, Right Weight Bearing Status: X RLE: Non Wt bearing LLE: Wt bearing as tolerated General Rehab Precautions: Fall risk Balance Balance Standing Balance - Static: Supports self with more than 50% effort using upper extremity, requires therapist assisstance Skilled Intervention: with bilat UE support on walker Transfers Transfers Sit to Stand: Min Stand Pivot Transfers: Mod Skilled Intervention: Independent with slide board transfers. Gait/Locomotion Gait / Locomotion Wheelchair Mobility: Modified independence Wheelchair distance: 150 Feet(on even surfaces) Exercise Exercises Seated Exercises: 10 min on the nustep at level7, UE therex on the tower column and curl/press withbilateral UE's Skilled Intervention: Pt performed rickshaw at 60# x 15 reps x 3. lat pulldowns with store leader changes with 9 plates. Home Living Home Living Type of Home: House Home Layout: One level, Able to live on main level with bedroom/bathroom, Ramped entrance Bathroom Shower/Tub: Tub/shower unit Bathroom Accessibility: Accessible via walker Home Equipment: Wheeled Walker, Wheelchair-manual(kneeler scooter, ) Additional Comments: Just recently was at [facility] for therapy Handoff given to primary RN. Exit Protocol Followed: Yes For complete objective data, detailed plan of care and patient education refer to: PT EVALUATION flow sheet, PT TREATMENT flow sheet, patient Plan of Care, Plan of Care progress note, and Patient Education. * Maria Isabel Awad MD - 12/11/2019 12:15 PM EDT 12/04/2019 Patient Name: Dyllan Huertas Admit Date: MR #: [id number] : 1960 Physicians: Rohit Aguilar MD (Family); No ref. provider found (Referring) Assessment and Plan: Impression Impression Right foot ulcer status post surgical intervention Severe Charcot deformity status post surgical intervention Enterobacter cloaca infection and gram-negative infection see cultures below RaullTela which is a gram-negative Acute osteomyelitis bone culture on 11/20/2019+ for the same pathogen that was present in January 2019is Enterobacter cloaca pansensitive RAJINDER none on chart 11/24/2019 Osteomyelitis as bone culture is positive from 11/20/2019 for Enterobacter cloaca 11/30/2019 New drainage from the pin site Elevated sed rate Elevated CRP Osteomyelitis right foot 12/01/2019 Osteomyelitis right foot Delayed healing of the plantar foot postop wound Cellulitis of the foot 12/04/2019 Status post surgical intervention with incision and drainage by Dr. Mora on 12/02/2019 cultures now with normal chalino AFB and fungus negative 12/05/2019 Sed rate 85 CRP 85 Per rehab physician there is a risk for the left ankle issues especially with diabetic neuropathy in the left foot and he has had right foot surgery 12/06/2019 OR cultures negative elevated CRP could be just postop We will continue IV antibiotics as planned till January 01 Rocephin 2 g every 24 hours 12/11/2019 Right foot wound with some maceration drainage Plan 12/11/2019 Discontinue Rocephin Start meropenem 1 g IV every 12 for the Enterobacter and the other gram-negative that he had seen in the cultures especially with the extensive surgery that was done and he had some drainage on the weekend Continue IV antibiotics till January 01 CBC CMP sed rate CRP Will discuss with Dr. Lopez and Dr. Mora 12/08/2019 Rocephin continued till January 01 Urinary retention to be evaluated by Dr. Lopez Will await for Dr. Mora to do the dressings 12/07/2019 Rocephin 2 g IV 24 hours till January 01 Discontinue Schulte catheter CBC CMP sed rate CRP on Wednesday12/06/2019 Rocephin 2 g to 24 hours till January 01 CBC CMP sed rate CRP periodically Transfer to rehab he has been accepted Will follow the patient in rehab with Dr. Lopez and Dr. Mora 12/05/2019 Rocephin 2 g IV 24 hours continue till January 01 because of the second surgery Elevated sed rate CRP will be followed Await transfer to rehab if approved and bed available 12/04/2019 Rocephin 2 g IV every 24 hours CBC CMP sed rate CRP Rehab referral with Dr. Lopez here if possible We will discuss with podiatry I have discussed with hospitalist OR cultures normal chalino negative AFB and fungus Blood cultures negative so far 12/01/2019 Continue Rocephin till further cultures available CBC CMP sed rate CRP Blood cultures x2 half an hour apart He did bleed well even in the wound clinic yesterday at some point will order arterial Dopplers I have discussed with podiatry at length 11/30/2019 Culture the pin site that is bleeding and draining Follow-up CBC Liver function test Rocephin 2 g IV every 24 hours continue till December 18 May need to go up to additional 2 weeks afterMar 17 which will be January 01 we will decide based on lab results and clinical response If the culture of the pin site shows any additional pathogens may need to readmit for additional IVantibiotics and streamlining treatment Revisit 1 week both I have discussed with podiatry Chief Complaint/Reason for Visit: I am seeing this patient at the request of Dr. Boogie Phan MD. I have reviewed the current hospital record, available laboratory, cardiology and imaging studies as well as available out patient records. History of Present Illness: Admission H&P by Boogie Phan MD on 11/30/2019: Dyllan Huertas is a 59 y.o. male presenting from home with h/o diabetes on disability since 2014 related to a Charcot foot and diabetes developed an ulcer in the beginning of 2018 was being followed by Dr. Robles at the office we have cultures from last year in January with Enterobacter and since then culture with gram-negative bacteria also was seen by Dr. Mora was found to have severe Charcot a corrective surgery was done with placement of an external fixator on 11/20. Today at wound clinic follow up was found to have increased drainage from one of the pin sites, being admitted for continued IV ATB and possible OR/ exploration in am. Exam: Tmax: 99 Urine Output: 2000 Stool: not recorded PACU Vitals 12/11/19 0808 BP: 118/76 Pulse: 81 Resp: (!) 20 Temp: 97.9 F (36.6 C) SpO2: 92% Allergies: no known allergies. Current Facility-Administered Medications: acetaminophen (TYLENOL) tablet 650 mg, 650 mg, Oral, Q4H PRN, Helena Sheldon CNP, 650 mg at 12/09/19 2142 albuterol (PROVENTIL) 2.5 mg /3 mL (0.083 %) nebulizer solution 2.5 mg, 2.5 mg, Inhalation, Q2H PRN, Helena Sheldon CNP aspirin EC tablet 162 mg, 162 mg, Oral, Daily, Helena Sheldon CNP, 162 mg at 12/11/19 0815 atorvastatin (LIPITOR) tablet 40 mg, 40 mg, Oral, Nightly, Helena Sheldon CNP, 40 mg at 12/10/19 2245 bisacodyL (DULCOLAX) suppository 10 mg, 10 mg, Rectal, Daily PRN, Helena Sheldon CNP, 10 mg at12/08/19 2242 calcium carbonate (TUMS) chewable tablet 1,000 mg, 1,000 mg, Oral, Daily, Helena Sheldon CNP, 1,000 mg at 12/11/19814 carvediloL (COREG) tablet 12.5 mg, 12.5 mg, Oral, BID, Helena Sheldon CNP, 12.5 mg at cefTRIAXone (ROCEPHIN) IVPB 2 g (premix), 2,000 mg, Intravenous, Q24H, Helena Sheldon CNP, Stopped at 12/10/19 1744 docusate sodium (COLACE) capsule 100 mg, 100 mg, Oral, Daily, Helena Sheldon CNP, 100 mg at 12/11/19 0815 docusate sodium (COLACE) capsule 100 mg, 100 mg, Oral, BID PRN, Helena Sheldon CNP fenofibrate tablet 160 mg, 160 mg, Oral, Daily with breakfast, Helena Sheldon CNP, 160 mg at 12/11/19 08 gabapentin (NEURONTIN) capsule 300 mg, 300 mg, Oral, Q8H LESLEY, Helena Sheldon CNP, 300 mg at 12/11/19 0513 insulin glargine (LANTUS) injection 35 Units, 35 Units, Subcutaneous, BID, Andrés Andre CNP, 35 Units at 12/11/19 0816 insulin lispro (HumaLOG) injection 0-15 Units, 0-15 Units, Subcutaneous, at bedtime, Helena Sheldon CNP, 2 Units at 12/07/19 2111 insulin lispro (HumaLOG) injection 0-30 Units, 0-30 Units, Subcutaneous, TID AC, Andrés Andre CNP, 14 Units at 12/11/19 0817 levothyroxine (SYNTHROID, LEVOTHROID) tablet 112 mcg, 112 mcg, Oral, Daily, Helena Sheldon CNP, 112 mcg at 12/11/19512 magnesium oxide (MAG-OX) tablet 400 mg, 400 mg, Oral, Daily, Helena Sheldon CNP, 400 mg at 12/11/19814 melatonin Tab 10 mg, 10 mg, Oral, at bedtime, Helena Sheldon CNP, 10 mg at 12/10/19 2244 metFORMIN (GLUCOPHAGE) tablet 1,000 mg, 1,000 mg, Oral, BID with meals, Helena Sheldon CNP, 1,000 mg at 12/11/19 0815 naloxone (NARCAN) injection 0.1 mg, 0.1 mg, Intravenous, PRN AND Notify physician, , , Until Discontinued AND naloxone (NARCAN) injection 0.4 mg, 0.4 mg, Intravenous, PRN, Helena Sheldon CNP nitroGLYCERIN (NITROSTAT) SL tablet 0.4 mg, 0.4 mg, Sublingual, Q5 Min PRN, Helena Sheldon CNP ondansetron (ZOFRAN-ODT) disintegrating tablet 4 mg, 4 mg, Oral, Q6H PRN, Helena Sheldon CNP psyllium (METAMUCIL) powder 1 packet, 1 packet, Oral, Daily, Kyung Doran, [facility],PharmD senna (SENOKOT) tablet 8.6 mg, 1 tablet, Oral, BID PRN, Helena Sheldon CNP sodium phosphates (FLEETS ADULT) 19-7 gram/118 mL enema 1 each, 1 each, Rectal, Daily PRN, Catarina Sheldon CNP tamsulosin (FLOMAX) 24 hr capsule 0.4 mg, 0.4 mg, Oral, After evening meal, Helena Sheldon CNP, 0.4 mg at 12/10/19 1733 traZODone (DESYREL) tablet 50 mg, 50 mg, Oral, Nightly PRN, Helena Sheldon CNP PMH/PSH/SH/ reviewed, no change except: Status post surgical intervention by Dr. Mora on 12/02/2019 12/05/2019 Patient was seen by rehab physician rehab evaluation in progress patient's left ankle is at risk because of right foot surgery and diabetic neuropathy in the left foot also 12/07/2019 patient is now in rehab Review of Systems: All systems were reviewed and negative except: Denies any fever chills no pain in the right leg and foot 12/06/2019 denies any fever chills or diarrhea 12/08/2019 Schulte had to be reinserted for urinary increase residual 12/11/2019 Dressing was changed by Dr. Mora on Wednesday there was some drainage culture was done there was some maceration culture result is normal chalino Dr. Mora's note was reviewed by me Medications Reviewed. Chart Reviewed. Exam Findings: Constitutional: HENT: Pupils reactive head: No oral candidiasis Eyes: No icterus Neck: Supple Cardiovascular: Heart S1-S2 2 by systolic murmur present no S3 Murmur Pulmonary/Chest: Clear Abdominal: Soft Musculoskeletal: No calf tenderness on the right leg Neurological: Has diabetic neuropathy with Charcot is able to wiggle the toes Skin postop dressing with Kerlix no drainage noted today no foul odor Patient drain has been removed by Dr. Mora over the weekend There was some maceration seen on the wound site on 12/10/2019 culture is normal chalino Schulte: Bard Schulte catheter with clear urine is being clamped now IV: Midline in the right arm site looks good denies any discomfort other: External fixator in place no drainage noted on the dressing wound to be examined by podiatrytoday Pin sites without any bleeding Wound External pins present fixator present Zechariah bandage present has a drain in place the drainage was less than 20 cc but not less than [address] Mora wants to remove the drain Laboratory and Additional Data Reviewed: Date: 12/11/2019 New labs/results as of last note Update from previous note Tmax: 98.7 Urine Output: 2500 Stool: X1 Current Antibiotics: Rocephin 2 gm IV every 24 Hours until 01/02/2020 Previous Antibiotic: Ancef 2,000 mg IV every 8 Hours Pre/Post Procedure I have personally reviewed the labs and results Test results Laboratory and Additional Data Reviewed: U/A 12/08/2019 Glucose: 150 Blood: Small WBC: 7 Bacteria: Rare Labs: Vitamin D, Total 12/07/2019 04:55 16 B12/Folate 12/07/2019 04:55 B12: 828 Folate: >20.0 Ferritin 12/07/2019 04:55 211 Iron 12/07/2019 04:55 30 CMP 12/07/2019 04:55 Glucose: 243 BUN: 17 Creatinine: 0.86 Sodium: 138 Potassium: 3.9 Total Protein: 6.6 Albumin: 2.4 Alk Phos: 76 AST: 28 ALT: 40 Total Bilirubin: 0.4 CBC 12/07/2019 04:54 WBC: 6.95 Hgb: 11.3 Hct: 36.8 Platelets: 210 Lymphocytes Abs: 0.64 CRP 12/05/2019 07:58 85.3 U/A 12/07/2019 Protein: 30 Glucose: >=500 Blood: Small Leukocyte Esterase: Trace Renal Epithelial: <1 Current Cultures: 12/10/2019 Right Foot Wound Aerobic Culture: Rare WBC. Rare Epithelial Cells. No Organisms Seen. Preliminary. 12/08/2019 Urine Aerobic Culture: No Growth (<1,000 CFU/mL). Final. 12/07/2019 Urine Aerobic Culture on arrival to Nursing Rehab Unit: No Growth (<1,000 CFU/mL). Final. 12/02/2019 Right Foot Tissue Aerobic Culture: Normal Chalino After 48 Hours. Final. 12/02/2019 Right Foot Tissue AFB Culture: No Acid Fast Bacilli Seen. Preliminary. 12/02/2019 Right Foot Tissue Anaerobic Culture: No Anaerobic Growth at 2 Days. Final. 12/02/2019 Right Foot Tissue Fungus Culture: Fungal Culture in Progress. Preliminary. 12/01/2019 Blood Culture #1: No Growth After 5 Days. Final. 12/01/2019 Blood Culture #2: No Growth After 5 Days. Final. 11/30/2019 Right Foot Wound Aerobic Culture: Normal Chalino After 48 Hours. Final. 11/21/2019 Left Leg Wound Aerobic Culture: Normal Chalino After 48 Hours. Final. 11/20/2019 Right Foot Tissue Aerobic Culture: Moderate Growth Enterobacter cloacae complex, S=Youssef Sensitive. Final. 11/20/2019 Right Foot Tissue Anaerobic Culture: No Anaerobic Growth at 2 Days. Final. 11/20/2019 Right Foot Bone Aerobic Culture: Light Growth Enterobacter Cloacae Complex, S=Youssef Sensitive. Final. 11/20/2019 Right Foot Bone Anaerobic Culture: No Anaerobic Growth at 2 Days. Final. Date: 12/08/2019 New labs/results as of last note Update from previous note Tmax: 99.2 Urine Output: 4950 Stool: not recorded Current Antibiotics: Rocephin 2 gm IV every 24 Hours until 01/02/2020 Previous Antibiotic: Ancef 2,000 mg IV every 8 Hours Pre/Post Procedure I have personally reviewed the labs and results Test results Laboratory and Additional Data Reviewed: U/A 12/08/2019 Glucose: 150 Blood: Small WBC: 7 Bacteria: Rare Labs: Vitamin D, Total 12/07/2019 04:55 16 B12/Folate 12/07/2019 04:55 B12: 828 Folate: >20.0 Ferritin 12/07/2019 04:55 211 Iron 12/07/2019 04:55 30 CMP 12/07/2019 04:55 Glucose: 243 BUN: 17 Creatinine: 0.86 Sodium: 138 Potassium: 3.9 Total Protein: 6.6 Albumin: 2.4 Alk Phos: 76 AST: 28 ALT: 40 Total Bilirubin: 0.4 CBC 12/07/2019 04:54 WBC: 6.95 Hgb: 11.3 Hct: 36.8 Platelets: 210 Lymphocytes Abs: 0.64 CRP 12/05/2019 07:58 85.3 U/A 12/07/2019 Protein: 30 Glucose: >=500 Blood: Small Leukocyte Esterase: Trace Renal Epithelial: <1 Current Cultures: 12/07/2019 Urine Aerobic Culture on arrival to Nursing Rehab Unit: No Growth, Incubation Continued.Preliminary. 12/02/2019 Right Foot Tissue Aerobic Culture: Normal Chalino After 48 Hours. Final. 12/02/2019 Right Foot Tissue AFB Culture: No Acid Fast Bacilli Seen. Preliminary. 12/02/2019 Right Foot Tissue Anaerobic Culture: No Anaerobic Growth at 2 Days. Final. 12/02/2019 Right Foot Tissue Fungus Culture: Fungal Culture in Progress. Preliminary. 12/01/2019 Blood Culture #1: No Growth After 5 Days. Final. 12/01/2019 Blood Culture #2: No Growth After 5 Days. Final. 11/30/2019 Right Foot Wound Aerobic Culture: Normal Chalino After 48 Hours. Final. 11/21/2019 Left Leg Wound Aerobic Culture: Normal Chalino After 48 Hours. Final. 11/20/2019 Right Foot Tissue Aerobic Culture: Moderate Growth Enterobacter cloacae complex, S=Youssef Sensitive. Final. 11/20/2019 Right Foot Tissue Anaerobic Culture: No Anaerobic Growth at 2 Days. Final. 11/20/2019 Right Foot Bone Aerobic Culture: Light Growth Enterobacter Cloacae Complex, S=Youssef Sensitive. Final. 11/20/2019 Right Foot Bone Anaerobic Culture: No Anaerobic Growth at 2 Days. Final. Radiology: Left Ankle X-Ray 12/07/2019 1. A new screw internally fixes the base of the 5th metatarsal to near anatomic alignment, however this screw is broken/fractured. 2. 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 Lateral subluxation of the 2nd through 5th metatarsal bases is again noted, as well as pes planus deformity. 3. Milder arthritis is noted in the tibiotalar joint and subtalar joint. 4. Large calcaneal enthesophytes are noted at the insertion sites of the plantar fascia and Achilles tendon. 5. No acute fracture, or other acute bony abnormality is seen. Date: 12/07/2019 New labs/results as of last note Update from previous note Tmax: 99.1 Urine Output: 1800 Stool: not recorded Current Antibiotics: Rocephin 2 gm IV every 24 Hours until 01/02/2020 Previous Antibiotic: Ancef 2,000 mg IV every 8 Hours Pre/Post Procedure I have personally reviewed the labs and results Test results Laboratory and Additional Data Reviewed: Labs: Vitamin D, Total 12/07/2019 04:55 16 B12/Folate 12/07/2019 04:55 B12: 828 Folate: >20.0 Ferritin 12/07/2019 04:55 211 Iron 12/07/2019 04:55 30 CMP 12/07/2019 04:55 Glucose: 243 BUN: 17 Creatinine: 0.86 Sodium: 138 Potassium: 3.9 Total Protein: 6.6 Albumin: 2.4 Alk Phos: 76 AST: 28 ALT: 40 Total Bilirubin: 0.4 CBC 12/07/2019 04:54 WBC: 6.95 Hgb: 11.3 Hct: 36.8 Platelets: 210 Lymphocytes Abs: 0.64 CRP 12/05/2019 07:58 85.3 U/A 12/07/2019 Protein: 30 Glucose: >=500 Blood: Small Leukocyte Esterase: Trace Renal Epithelial: <1 Current Cultures: 12/02/2019 Right Foot Tissue Aerobic Culture: Normal Chalino After 48 Hours. Final. 12/02/2019 Right Foot Tissue AFB Culture: No Acid Fast Bacilli Seen. Preliminary. 12/02/2019 Right Foot Tissue Anaerobic Culture: No Anaerobic Growth at 2 Days. Final. 12/02/2019 Right Foot Tissue Fungus Culture: Fungal Culture in Progress. Preliminary. 12/01/2019 Blood Culture #1: No Growth After 5 Days. Final. 12/01/2019 Blood Culture #2: No Growth After 5 Days. Final. 11/30/2019 Right Foot Wound Aerobic Culture: Normal Chalino After 48 Hours. Final. 11/21/2019 Left Leg Wound Aerobic Culture: Normal Chalino After 48 Hours. Final. 11/20/2019 Right Foot Tissue Aerobic Culture: Moderate Growth Enterobacter cloacae complex, S=Youssef Sensitive. Final. 11/20/2019 Right Foot Tissue Anaerobic Culture: No Anaerobic Growth at 2 Days. Final. 11/20/2019 Right Foot Bone Aerobic Culture: Light Growth Enterobacter Cloacae Complex, S=Youssef Sensitive. Final. 11/20/2019 Right Foot Bone Anaerobic Culture: No Anaerobic Growth at 2 Days. Final. Date: 12/06/2019 New labs/results as of last note Update from previous note Tmax: 99 Urine Output: 1250 Stool: not recorded Current Antibiotics: Rocephin 2 gm IV every 24 Hours until 01/02/2020 Previous Antibiotic: Ancef 2,000 mg IV every 8 Hours Pre/Post Procedure I have personally reviewed the labs and results Test results Laboratory and Additional Data Reviewed: Labs: CBC 12/05/2019 07:58 WBC: 7.98 Hgb: 11.4 Hct: 36.3 Platelets: 228 Lymphocytes Abs: 0.52 CMP 12/05/2019 07:58 Glucose: 223 BUN: 19 Creatinine: 0.86 Sodium: 139 Potassium: 4.1 Total Protein: 6.4 Albumin: 2.4 Alk Phos: 75 AST: 20 ALT: 31 Total Bilirubin: 0.4 CRP 12/05/2019 07:58 85.3 Current Cultures: 12/02/2019 Right Foot Tissue Aerobic Culture: Normal Chalino After 48 Hours. Final. 12/02/2019 Right Foot Tissue AFB Culture: No Acid Fast Bacilli Seen. Preliminary. 12/02/2019 Right Foot Tissue Anaerobic Culture: No Anaerobic Growth at 2 Days. Final. 12/02/2019 Right Foot Tissue Fungus Culture: Fungal Culture in Progress. Preliminary. 12/01/2019 Blood Culture #1: No Growth After 5 Days. Final. 12/01/2019 Blood Culture #2: No Growth After 5 Days. Final. 11/30/2019 Right Foot Wound Aerobic Culture: Normal Chalino After 48 Hours. Final. 11/21/2019 Left Leg Wound Aerobic Culture: Normal Chalino After 48 Hours. Final. 11/20/2019 Right Foot Tissue Aerobic Culture: Moderate Growth Enterobacter cloacae complex, S=Youssef Sensitive. Final. 11/20/2019 Right Foot Tissue Anaerobic Culture: No Anaerobic Growth at 2 Days. Final. 11/20/2019 Right Foot Bone Aerobic Culture: Light Growth Enterobacter Cloacae Complex, S=Youssef Sensitive. Final. 11/20/2019 Right Foot Bone Anaerobic Culture: No Anaerobic Growth at 2 Days. Final. Pathology: 12/02/2019 A. Soft tissue, Right Foot, excision: Non-specific ulcer. Date: 12/05/2019 New labs/results as of last note Update from previous note Tmax: 98.8 Urine Output: 2900 Stool: not recorded Current Antibiotics: Rocephin 2 gm IV every 24 Hours Previous Antibiotic: Ancef 2,000 mg IV every 8 Hours Pre/Post Procedure I have personally reviewed the labs and results Test results Laboratory and Additional Data Reviewed: Labs: CBC 12/05/2019 07:58 WBC: 7.98 Hgb: 11.4 Hct: 36.3 Platelets: 228 Lymphocytes Abs: 0.52 CMP 12/05/2019 07:58 Glucose: 223 BUN: 19 Creatinine: 0.86 Sodium: 139 Potassium: 4.1 Total Protein: 6.4 Albumin: 2.4 Alk Phos: 75 AST: 20 ALT: 31 Total Bilirubin: 0.4 CRP 12/05/2019 07:58 85.3 Current Cultures: 12/02/2019 Right Foot Tissue Aerobic Culture: Normal Chalino After 48 Hours. Final. 12/02/2019 Right Foot Tissue AFB Culture: No Acid Fast Bacilli Seen. Preliminary. 12/02/2019 Right Foot Tissue Anaerobic Culture: No Anaerobic Growth at 2 Days. Final. 12/02/2019 Right Foot Tissue Fungus Culture: Fungal Culture in Progress. Preliminary. 12/01/2019 Blood Culture #1: No Growth After 48 Hours. Preliminary. 12/01/2019 Blood Culture #2: No Growth After 48 Hours. Preliminary. 11/30/2019 Right Foot Wound Aerobic Culture: Normal Chalino After 48 Hours. Final. 11/21/2019 Left Leg Wound Aerobic Culture: Normal Chalino After 48 Hours. Final. 11/20/2019 Right Foot Tissue Aerobic Culture: Moderate Growth Enterobacter cloacae complex, S=Youssef Sensitive. Final. 11/20/2019 Right Foot Tissue Anaerobic Culture: No Anaerobic Growth at 2 Days. Final. 11/20/2019 Right Foot Bone Aerobic Culture: Light Growth Enterobacter Cloacae Complex, S=Youssef Sensitive. Final. 11/20/2019 Right Foot Bone Anaerobic Culture: No Anaerobic Growth at 2 Days. Final. Current Antibiotics: Rocephin 2 gm IV every 24 Hours Previous Antibiotic: Ancef 2,000 mg IV every 8 Hours Pre/Post Procedure I have personally reviewed the labs and results Test results Laboratory and Additional Data Reviewed: Results from last 7 days Lab Units 12/01/19 0648 11/30/19 1245 11/29/19 0655 SODIUM mmol/L 140 140 142 POTASSIUM mmol/L 5.0 4.9 5.1 CHLORIDE mmol/L 106 105 107 BUN mg/dL 22 24 36* CREATININE mg/dL 0.98 0.94 1.12 GLUCOSE mg/dL 223* 127* 108* CALCIUM mg/dL 9.1 9.3 9.3 Results from last 7 days Lab Units 12/01/19 0635 11/30/19 1245 WBC K/mcL 8.56 8.72 HGB g/dL 11.2* 10.8* HCT % 35.6* 35.4* PLT K/mcL 232 243 Results from last 7 days Lab Units 11/30/19 1245 ALK PHOS U/L 67 BILIRUBIN TOTAL mg/dL 0.3 TOTAL PROTEIN g/dL 6.5 ALTR U/L 56 AST U/L 42 Current Cultures: 12/02/2019 Right Foot Tissue Aerobic Culture: Normal Chalino After 24 Hours. Preliminary. 12/02/2019 Right Foot Tissue AFB Culture: No Acid Fast Bacilli Seen. Preliminary. 12/01/2019 Blood Culture #1: No Growth After 48 Hours. Preliminary. 12/01/2019 Blood Culture #2: No Growth After 48 Hours. Preliminary. 11/30/2019 Right Foot Wound Aerobic Culture: Normal Chalino After 48 Hours. Final. 11/21/2019 Left Leg Wound Aerobic Culture: Normal Chalino After 48 Hours. Final. 11/20/2019 Right Foot Tissue Aerobic Culture: Moderate Growth Enterobacter cloacae complex, S=Youssef Sensitive. Final. 11/20/2019 Right Foot Tissue Anaerobic Culture: No Anaerobic Growth at 2 Days. Final. 11/20/2019 Right Foot Bone Aerobic Culture: Light Growth Enterobacter Cloacae Complex, S=Youssef Sensitive. Final. 11/20/2019 Right Foot Bone Anaerobic Culture: No Anaerobic Growth at 2 Days. Final. Recent Cultures: 05/30/2019 Right Foot Tissue Aerobic Culture: Normal Chalino After 48 Hours. Final. 05/30/2019 Right Foot Tissue Anaerobic Culture: No Anaerobic Growth at 2 Days. Final. 03/23/2019 Right Foot Wound Aerobic Culture: Heavy Growth Raoultella [place], R=Ampicillin, S=Remainder of panel. 03/09/2019 Right Foot Wound Aerobic Culture: Normal Chalino After 48 Hours. Final. 02/09/2019 Right Foot Wound Aerobic Culture: Normal Chalino After 48 Hours. Final. 01/19/2019 Right Toe Two Wound Aerobic Culture: Heavy Growth Enterobacter Cloacae Complex, S=Youssef Sensitive. Final. Radiology: Right Foot X-Ray 12/02/2019 Intraoperative fluoroscopy provided. Severe bony deformity of the foot as described. Please correlate with operative note. Chest X-Ray 11/23/2019 1. Right arm PICC line in place with tip in superior vena cava. 2. No acute pulmonary disease. 3. Cardiomegaly with evidence of prior open heart surgery. 4. No acute osseous abnormality Right Foot X-Ray 11/20/2019 IMPRESSION: Intraoperative fluoroscopy for localization during right foot and ankle reconstruction and fixation. Please see operative report for details. Left Ankle X-Ray Ordered 11/20/2019 Right Foot X-Ray 11/20/2019 FINDINGS: Two views of the right foot were obtained. There are advanced changes of Charcot arthropathy throughout the right midfoot which appears similar compared to prior examination. There are postsurgical changes of resection of the right 2nd toe proximal phalangeal head. IMPRESSION: 1. Advanced changes of Charcot arthropathy throughout the right midfoot which appear unchanged compared to prior examination. Chest AP/PA X-Ray 11/16/2019 1. No acute pulmonary disease. 2. Cardiomegaly, with evidence of prior open heart surgery. 3. Multilevel degenerative changes of the thoracic spine. MR Right Foot 05/19/2019 1. There is a superficial soft tissue ulcer again seen along the plantar aspect of the midfoot, butthere is no evidence of abscess or osteomyelitis in this region. 2. Stable appearance of the sequela of severe neuropathic arthropathy of the midfoot with collapse of the midfoot again seen resulting in a rocker bottom deformity. 3. A moderate amount of diffuse subcutaneous edema along the dorsum of the foot may be due to reactive edema or a cellulitis, but this is nonspecific. Right Foot X-Ray 04/28/2019 1. Soft tissue irregularity involving the plantar aspect of the foot likely representing the reported ulcer. No bony destruction to suggest osteomyelitis. 2. No evidence of radiopaque foreign body. 3. Stable deformity and degenerative changes involving the midfoot. Findings are consistent with Charcot joint. NM White Cell Scan Spot Limited 03/08/2017 FINDINGS: A focal area of intense abnormal white blood cell migration is noted central plantar aspect of the right foot corresponding to the area of the wound demonstrated radiographically. No other focus of white blood cell migration abnormality is evident within the right or left foot. IMPRESSION: Focal area of abnormal white blood cell migration at the plantar aspect central right foot may be at the wound itself or may be involving the bone with associated fracture as demonstrated radiographically. Anatomic detail is insufficient for differentiation between the two. Renal U/S 03/07/2017 IMPRESSION: Severe thickening of the urinary bladder wall. This could be due to outlet obstruction with hypertrophy of the wall. If there is no such history, this should be evaluated with cystoscopy. CVPS: Arterial Doppler: not on file Venous Doppler: not on file 2D Echo 11/23/2019 Moderate LV enlargement with LVH. Global systolic dysfunction with segmental features. LVEF 30% Elevated LV filling pressures RV is dilated with severe RV dysfunction Mild mitral annular calcification, mild thickening of the aortic valve without hemodynamically significant valvular disease There is a atrial level right to left shunt identified with saline contrast with free breathing andValsalva most likely via PFO LVEF unchanged from to previous echo from 2017 Surgeries: Please see above for surgical history Procedure: Right Foot I&D ADJUSTMENT EXTERNAL FIXATOR Date: 12/02/2019 Surgery: Alena Mora DPM Procedure: RIGHT FOOT RECONSTRUCTION WITH APPLICATION OF CIRCULAR STATIC EXTERNAL FIXATION Date: 11/20/2019 Surgeon: Alena Mora DPM Procedure: ARTHROPLASTY 2ND TOE RIGHT FOOT Date: 01/25/2019 Surgeon: Rosa M Robles DPM Pathology: not on file * Peggy Avery PT - 12/11/2019 11:13 AM EDT PHYSICAL THERAPY Weekly Progress Note Pt feels good today. Had a good weekend and just rested yesterday. Therapy Precautions Therapy Precautions Orthotic Devices: Yes Lower Extremity: External Fixator, Right Weight Bearing Status: X RLE: Non Wt bearing LLE: Wt bearing as tolerated General Rehab Precautions: Fall risk Balance Balance Standing Balance - Static: Supports self with more than 50% effort using upper extremity, requires therapist assisstance Skilled Intervention: with bilat UE support on walker Bed Mobility Transfers Transfers Sit to Stand: Min Skilled Intervention: Pt performed sit to stands with CGA/min assist in // bars with holding for approx 1.5 minutes. He needs cues for technique. Pt then worked on sit to stands at RW with min assistwith smoother transition compared to last week. Gait/Locomotion Gait / Locomotion Wheelchair Mobility: Modified lodi Wheelchair distance: 150 Feet(on even surfaces) Exercise Exercises Skilled Intervention: Pt performed rickshaw at 60# x 15 reps x 3. lat pulldowns with store leader changes with 9 plates. x 15 reps GOALS: Problem: Mobility - Impaired Goal: PT- LTG dynamic balance Description: PT - Patient will increase standing dynamic balance to poor of 1 person to improve functional mobility and safety. Outcome: Met Note: Poor of 1 person with RW Problem: Mobility - Impaired Goal: PT- LTG stand-pivot transfer Description: PT - Patient will perform bed mobility with WI and transfers with RW and mod assist toimprove functional mobility and safety. Outcome: Partially Met Note: Pt is able to provide sliding board with SBA. And bed mobility WI. Stand pivot with RW and mod assist x 1-2 with not able to step around for pivot though Goal: PT- LTG sliding board transfer Description: PT - Patient will perform sliding board transfer with WI to improve functional mobility and safety. Outcome: Partially Met Note: SBA from even surfaces. Will need to trial car with sliding board and to higher surfaces Goal: PT- LTG wheelchair management Description: PT - Patient will propel and manage wheelchair at least 300 ft with WI on multiple surfaces including ramps to improve functional mobility and safety. Outcome: Partially Met Note: WI on even surfaces and SBA with cues for uneven including ramps Pt is progressing well towards his goals and is meeting or partially meeting them. he has gained strength and independence in all areas of mobility. Pt is limited at this time due to balance and NWB on right LE. he will need to work more on ramps and transfers with RW for home going. Family/caregiver training will need completed. he will need to also work on his standing balance for tasks at home. Cont with PT POC. Home Living Home Living Type of Home: House Home Layout: One level, Able to live on main level with bedroom/bathroom, Ramped entrance Bathroom Shower/Tub: Tub/shower unit Bathroom Accessibility: Accessible via walker Home Equipment: Wheeled Walker, Wheelchair-manual(mayco rea, ) Additional Comments: Just recently was at [facility] for therapy Prior Level of Function Prior Function Level of [place]: Independent with ADLs and functional transfers, Independent with homemaking with ambulation Lives With: Alone Receives Help From: Family ADL Assistance: Independent Homemaking Assistance: Independent Vocational: On disability Leisure: (cooking, shopping sports/electronics, target shoot, read, ) Comments: likes to build 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 Exit Protocol Followed: Yes For complete objective data, detailed plan of care and patient education refer to: PT EVALUATION flow sheet, PT TREATMENT flow sheet, patient Plan of Care, Plan of Care progress note, and Patient Education. * Nicholas Sanon - 12/11/2019 10:20 AM EDT GROUP THERAPY Pt particapted in occupational/recreational therapy group for 45 mins while working on activity tolerance,leisure particaption, and BUE strength required for ADLs. Pt particapted in introductions stating: thier name, goal for the week, something they look forward to in springtime, and an exercise. Pt particapted in AROM for BUE exercises working on dynamic sitting balance, BUE ROM/strength, and activity tolerance from w/c level to improve endurance for functional activities. After exercises group members particpate in balloon batting working on dynamic sitting balance, BUE ROM/strength, and visual scanning. Pt particpated throughout session and had a pleasant affect while benefiting from social interaction. Pt handed off to PT * Eli Hassan, TERRITORY MANAGER - 12/11/2019 10:20 AM EDT Recreational Therapy Daily Note Patient attended OT/TR cotreat group session this date to promote increased activity tolerance, cognitive exercise, upper extremity exercise, visual scanning, positive leisure participation, application of positive coping skills, positive social interaction. Patient participated with maximal effort. Roles of OT and TR reviewed. Patient took part in introductions, which included sharing of first name, goal for the week, something enjoyed in the Spring, and an exercise for the group to perform together. Patient cited goal as to not hit the floor with my foot (meaning to adhere to non WB precautions). He cited Spring interest as target shooting. Patient participated enthusiastically in balloon batting using a shortened pool noodle for batting the balloon. Affect pleasant. Refer to OT note for further detail. Continue with TR treatment goals as stated in TR assessment. Treatment time: [id number]; 45 min Exit protocol followed: Exception: Handed off to PT. * Helena Sheldon CNP - 12/11/2019 9:07 AM EDT [facility] Inpatient Consult Follow-up 12/11/2019 Helena Sheldon CNP Patient: Dyllan Huertas Date of : 1960 (59 y.o.) PCP: Rohit Aguilar MD Referring Provider: Sinai Lopez* Consult: Alisa Singh MD: Hospitalist assistance with medical management ASSESSMENT/PLAN: Principal Problem: Osteomyelitis (HCC) Active Problems: 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) JAYDEN (obstructive sleep apnea) Mixed hyperlipidemia Benign prostatic hyperplasia with urinary retention Essential hypertension S/P foot surgery, right S/P foot surgery, right Assessment & Plan Dr. Mora podiatry consulted to manage wound. Extensive wound care is needed. Non wt bearing. Essential hypertension Assessment & Plan Monitor blood pressure per shift. Check kidney function. Continue coreg Benign prostatic hyperplasia with urinary retention Assessment & Plan Has been straight cathing at home. Follows with Dr. Izquierdo. Bladder training, remove schulte, bladder scan and straight cath. Pt has no bladder sensation Mixed hyperlipidemia Assessment & Plan Continue lipitor and fenofibrate. Uses crestor at home. Monitor liver function JAYDEN (obstructive sleep apnea) Assessment & Plan Encourage pt to wear cpap. Wear nasal cannula at 2L at night if he refuses Cpap 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) Assessment & Plan Consult endocrinology. DM has not been well controlled and the infection is making it worse. Monitor blood glucose ACHS, continue lantus, preprandial humalog, and sliding scale. Diabetic diet * Osteomyelitis (HCC) Assessment & Plan Consult ID and continue IV antibiotics. Non wt bearing on right foot. 12/07 Dr. Mora came and had nurse change leg dressing on his left foot with the external fixator. It took over an hour to clean and wrap each pin. Pt tolerated well. Compliant with therapy. Continues antibiotics 12/08 Afebrile, continues with antibiotic therapy DM being managed by endocrinology. Blood pressure is stable. Complaint with therapy 12/10 Glucose is becoming controlled. External fixator is intact No signs of infection Blood pressure is controlled New culture taken of wound due to some drainage. Dr. Andrey awad waiting for results SUBJECTIVE: History Since Last Visit: denies pain Pending Lab and Radiology Results Order Current Status Wound Anaerobic Culture In process Wound Aerobic Culture Preliminary result Current Scheduled Meds: aspirin 162 mg Oral Daily atorvastatin 40 mg Oral Nightly calcium carbonate 1,000 mg Oral Daily carvediloL 12.5 mg Oral BID cefTRIAXone 2,000 mg Intravenous Q24H docusate sodium 100 mg Oral Daily fenofibrate 160 mg Oral Daily with breakfast gabapentin 300 mg Oral Q8H LESLEY insulin glargine 35 Units Subcutaneous BID lispro insulin 0-15 Units Subcutaneous at bedtime insulin lispro 0-30 Units Subcutaneous TID AC levothyroxine 112 mcg Oral Daily magnesium oxide 400 mg Oral Daily melatonin 10 mg Oral at bedtime metFORMIN 1,000 mg Oral BID with meals tamsulosin 0.4 mg Oral After evening meal Review of Systems: All other systems reviewed and negative other than HPI OBJECTIVE: Physical Examination: Vital Signs: BP 118/76 Pulse 81 Temp 97.9 F (36.6 C) (Oral) Resp (!) 20 Wt 118 kg (260 lb 2.3 oz) [id number]% BMI 36.28 kg/m Physical Exam General Appearance: Alert, well appearing, and in no acute distress. HEENT: Head - Normocephalic, atraumatic. Eyes - ALEKS bilaterally and EOMI. Ears - normal external appearance, hearing intact. Nose - normal, no erythema. Throat - mucous membranes moist, pharynx without lesions. Neck: Supple, trachea midline. Cardiovascular: S1, S2 normal. No murmurs, rubs, clicks or gallops appreciated. No pedal edema. Respiratory: Lungs clear to auscultation, no wheezes, rales or rhonchi heard. Abdomen: Soft, non-tender, normal bowel sounds, non-distended, no masses or organomegaly appreciated. Neurological: Limited movement in lower ext. Numbness from knee down. Musculoskeletal: Right foot s/p surgery, swollen. Left foot swollen from surgery history Skin: Normal coloration and turgor. No rashes. External fixator with large incision, on right foot Psych: Alert, oriented x 3. Normal mood and affect. Laboratory and Additional Data Reviewed: Results/Medications Reviewed 12/11/19 9:07 AM: Results from last 7 days Lab Units 12/07/19 0455 12/05/19 0758 SODIUM mmol/L 138 139 POTASSIUM mmol/L 3.9 4.1 CHLORIDE mmol/L 104 104 BUN mg/dL 17 19 CREATININE mg/dL 0.86 0.86 GLUCOSE mg/dL 243* 223* CALCIUM mg/dL 9.4 9.1 Results from last 7 days Lab Units 12/07/19 0454 12/05/19 0758 WBC K/mcL 6.95 7.98 HGB g/dL 11.3* 11.4* HCT % 36.8* 36.3* PLT K/mcL 210 228 Results from last 7 days Lab Units 12/07/19 0455 ALK PHOS U/L 76 BILIRUBIN TOTAL mg/dL 0.4 TOTAL PROTEIN g/dL 6.6 ALTR U/L 40 AST U/L 28 CULTURES: Reviewed 12/11/19 9:07 AM Radiology/Imaging: Reviewed 12/11/19 9:07 AM * Prachi Frankel PA-C - 12/11/2019 8:41 AM EDT Patient ID: Patient Name: Dyllan Huertas Admit Date: 12/06/2019 MR #: [id number] : 1960 Current location: [facility] Physicians: Rohit Aguilar MD (Family); J. Brown, DE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 (Referring) Reason for consult: Type 2 diabetes out of control Assessment/Plan: Dx: Type 2 diabetes, under poor control Patient would benefit from adjustment in insulin levels to seek euglycemia and aid in wound healing. See plan below. Currently taking as outpatient: Metformin 1000 mg twice daily Humalog insulin: 8 units at breakfast; 8 units at lunch; 8 units at supper Humalog sliding scale Lantus insulin: 30 units at breakfast; 30 units at bedtime Current Hemoglobin A1C= Lab Results Component Value Date HGBA1C 8.8 (H) 11/27/2019 HGBA1C 8.5 (H) 01/20/2019 NOTES: 12/07: Patient's blood glucose levels reviewed over the last 48 hours. Patient recently transferred to the inpatient rehabilitation unit blood glucose levels over the last for a 8 hours have ranged from 185-345 mg/dL. The present time he is taking 30 units of Lantus twice daily along with 8 units of Humalog with meals. Patient also takes metformin 1000 mg twice daily. 12/10: BG reviewed over the last 48 hours. Patient currently receiving Metformin 1000 mg daily, 12 units with meals + SS, and 35 units of Lantus BID. Patient reports that BG are better now than they usually are at home. Blood Glucoses: 12/06: 242---341---239---345 12/07: 185---216---151---252 12/08: 203---190---133---153 12/09: 125---149---152---164 12/10: 162 Plan: 1. Rx changes: Adjust as below Humalog insulin: 12 units at breakfast; 12 units at lunch; 12 units at supper Lantus insulin: 35 units at breakfast; 35 units at bedtime Continue Metformin 1000 mg twice daily Decrease SSI to conservative dose. 12/10: CPM 2. Education: Reviewed ABCs of diabetes management (respective goals in parentheses): A1C (7.0-8.0), blood pressure (<130/80), and cholesterol (LDL <100). Referral to Diabetes Education Referral to Nutrition therapy Subjective: Brief HPI: 12/10: Patient sitting up in wheelchair finishing breakfast. He is without complaints this am. Patient reports that BG are better now than they usually are at home. We discussed that it is most likely diet related and patient admits to eating whatever he wants at home. Dyllan Huertas is a 59 y.o. male with a past medical history of type 2 DM w/ charcot joint arthropath. Patient recently underwent right midfoot wedge resection with application of external fixator (11/20/19). He was initially admitted on 11/30/2019 with osteomyelitis of right ankle. Patient was transferred to [facility] inpatient rehab on 12/06/19. Hospital course significant for: debridement of right ankle; hyperglycemia. IV abx per ID. Patient reports that his pain is well controlled. He denies CP or SOB. He reports that he has numbness/tingling of lower limbs. Patient has had diabetes for close to 30 years. Diagnosed in his late 's, he started with OHAs, transitioned to insulin in approximately 2011. Patient is currently taking Humalog insulin: 8 units at breakfast; 8 units at lunch; 8 units at supper Lantus insulin: 30 units at breakfast; 30 units at bedtime. Prior to admission he reports taking close to 50 units of R TID with meals and 50 units of lantus at HS. Patient reports he had considered changing to R and N due to cost of brand name insulin, however he is planning to delay that at this time. Blood sugar levels since admission have been ranging from 185-362 mg/dL. Current monitoring regimen: home blood tests - 2 times daily Complications of diabetes include: Retinopathy: Negative Nephropathy: Negative Peripheral Neuropathy: Positive Autonomic Neuropathy: Negative Allergies: No Known Allergies Home Medications: Current Facility-Administered Medications Medication Dose Route Frequency Provider Last Rate Last Dose acetaminophen (TYLENOL) tablet 650 mg 650 mg Oral Q4H PRN Helena Sheldon CNP 650 mg at 12/09/19 2142 albuterol (PROVENTIL) 2.5 mg /3 mL (0.083 %) nebulizer solution 2.5 mg 2.5 mg Inhalation Q2H PRN Helena Sheldon CNP aspirin EC tablet 162 mg 162 mg Oral Daily Helena Sheldon CNP 162 mg at 12/11/19 0815 atorvastatin (LIPITOR) tablet 40 mg 40 mg Oral Nightly Helena Sheldon CNP 40 mg at 12/10/19 2245 bisacodyL (DULCOLAX) suppository 10 mg 10 mg Rectal Daily PRN Helena Sheldon CNP 10 mg at 12/08/19 2242 calcium carbonate (TUMS) chewable tablet 1,000 mg 1,000 mg Oral Daily Helena Sheldon CNP 1,000mg at 12/11/19 0815 carvediloL (COREG) tablet 12.5 mg 12.5 mg Oral BID Helena Sheldon CNP 12.5 mg at 12/11/19 0815 cefTRIAXone (ROCEPHIN) IVPB 2 g (premix) 2,000 mg Intravenous Q24H Helena Sheldon CNP Stopped at 12/10/19 1744 docusate sodium (COLACE) capsule 100 mg 100 mg Oral Daily Helena Sheldon CNP 100 mg at 12/11/19 0815 docusate sodium (COLACE) capsule 100 mg 100 mg Oral BID PRN Helena Sheldon CNP fenofibrate tablet 160 mg 160 mg Oral Daily with breakfast Helena Sheldon CNP 160 mg at 12/11/19 0822 gabapentin (NEURONTIN) capsule 300 mg 300 mg Oral Q8H [facility] Helena Sheldon CNP 300 mg at 12/11/19 0513 insulin glargine (LANTUS) injection 35 Units 35 Units Subcutaneous BID Andrés Andre CNP 35 Units at 12/11/19 0816 insulin lispro (HumaLOG) injection 0-15 Units 0-15 Units Subcutaneous at bedtime Helena Sheldon CNP 2 Units at 12/07/19 2111 insulin lispro (HumaLOG) injection 0-30 Units 0-30 Units Subcutaneous TID Andrés Andre CNP 14 Units at 12/11/19 0817 levothyroxine (SYNTHROID, LEVOTHROID) tablet 112 mcg 112 mcg Oral Daily Helena Sheldon CNP 112mcg at 12/11/19 0513 magnesium oxide (MAG-OX) tablet 400 mg 400 mg Oral Daily Helena Sheldon CNP 400 mg at 12/11/200715 melatonin Tab 10 mg 10 mg Oral at bedtime Helena Sheldon CNP 10 mg at 12/10/19 2244 metFORMIN (GLUCOPHAGE) tablet 1,000 mg 1,000 mg Oral BID with meals Helena Sheldon CNP 1,000 mg at 12/11/19 0815 naloxone (NARCAN) injection 0.1 mg 0.1 mg Intravenous PRN Helena Sheldon CNP And naloxone (NARCAN) injection 0.4 mg 0.4 mg Intravenous PRN Helena Sheldon CNP nitroGLYCERIN (NITROSTAT) SL tablet 0.4 mg 0.4 mg Sublingual Q5 Min PRN Helena Sheldon CNP ondansetron (ZOFRAN-ODT) disintegrating tablet 4 mg 4 mg Oral Q6H PRN Helena Sheldon CNP senna (SENOKOT) tablet 8.6 mg 1 tablet Oral BID PRN Helena Sheldon CNP sodium phosphates (FLEETS ADULT) 19-7 gram/118 mL enema 1 each 1 each Rectal Daily PRN Helena Jaimes CNP tamsulosin (FLOMAX) 24 hr capsule 0.4 mg 0.4 mg Oral After evening meal Helena Sheldon CNP 0.4mg at 12/10/19 1733 traZODone (DESYREL) tablet 50 mg 50 mg Oral Nightly PRN Helena Sheldon CNP Current Medications: aspirin 162 mg Oral Daily atorvastatin 40 mg Oral Nightly calcium carbonate 1,000 mg Oral Daily carvediloL 12.5 mg Oral BID cefTRIAXone 2,000 mg Intravenous Q24H docusate sodium 100 mg Oral Daily fenofibrate 160 mg Oral Daily with breakfast gabapentin 300 mg Oral Q8H [place] insulin glargine 35 Units Subcutaneous BID lispro insulin 0-15 Units Subcutaneous at bedtime insulin lispro 0-30 Units Subcutaneous TID AC levothyroxine 112 mcg Oral Daily magnesium oxide 400 mg Oral Daily melatonin 10 mg Oral at bedtime metFORMIN 1,000 mg Oral BID with meals tamsulosin 0.4 mg Oral After evening meal acetaminophen, albuterol, bisacodyL, docusate sodium, nalOXone AND Notify physician AND naloxone, nitroGLYCERIN, ondansetron, senna, sodium phosphates, traZODone Review of Systems: Review of Systems Constitutional: Positive for activity change, fatigue and unexpected weight change. HENT: Negative for trouble swallowing. Eyes: Negative for visual disturbance. Respiratory: Negative for cough and shortness of breath. Cardiovascular: Negative for chest pain and leg swelling. Gastrointestinal: Negative for abdominal pain, constipation, diarrhea, nausea and vomiting. Endocrine: Negative for polydipsia, polyphagia and polyuria. Genitourinary: Schulte in place Musculoskeletal: Positive for arthralgias and myalgias. Skin: Negative for wound. Neurological: Positive for weakness and numbness (and tingling). Negative for headaches. Psychiatric/Behavioral: Negative for agitation and sleep disturbance. The patient is not nervous/anxious. History: Past Medical History: Diagnosis Date Coronary artery disease Diabetes mellitus, type 2 (HCC) Hyperlipidemia Hypertension Hypothyroidism Peripheral neuropathy S/P foot surgery, right 12/09/2019 11/20/2019Right foot reconstruction surgery with external fixation 12/02/2019 Right foot I and D Sleep apnea, obstructive does not use CPAP Past Surgical History: Procedure Laterality Date APPENDECTOMY ARTHROPLASTY TOE Right 01/25/2019 Procedure: ARTHROPLASTY 2ND TOE RIGHT FOOT; Surgeon: Rosa M Robles DPM; Location: [facility] [place] OR; Service: Podiatry CABG 2017 CARDIAC SURGERY 2017 CABG tripe bypass CLOSED REDUCTION PERCUTANEOUS PINNING LOWER EXTREMITY N/A 12/02/2019 Procedure: ADJUSTMENT of EXTERNAL FIXATOR; Surgeon: Alena Mora DPM; Location: [facility] OR; Service: Podiatry CYST REMOVED FROM CHEST N/A INCISION AND DRAINAGE FOOT AND ANKLE Right 12/02/2019 Procedure: RIGHT FOOT I&D; Surgeon: Alena Mora DPM; Location: Main OR; Service: Podiatry METAL IN LEFT LEFT WRIST AND LEFT 5TH TOE Left ORTHOPEDIC SURGERY RECONSTRUCTION FOOT CHARCOT Right 11/20/2019 Procedure: RIGHT FOOT RECONSTRUCTION WITH APPLICATION OF CIRCULAR STATIC EXTERNAL FIXATION; Surgeon: Alena Mora DPM; Location: [facility] OR; Service: Podiatry RT FOOT SURGERY Right TUMEMILY GARCIACK N/A Family History Problem Relation Age of Onset Heart disease Mother Heart disease Father Heart disease Brother Diabetes Sister Social History Tobacco Use Smoking status: Never Smoker Smokeless tobacco: Never Used Substance Use Topics Alcohol use: Yes Comment: occassionally mostly beer Drug use: Never The following portions of the patient's history were reviewed and updated as appropriate: allergies, current medications, past family history, past medical history, past social history, past surgicalhistory and problem list. Objective: BP 118/76 Pulse 81 Temp 97.9 F (36.6 C) (Oral) Resp (!) 20 Wt 118 kg (260 lb 2.3 oz) LoR880% BMI 36.28 kg/m Wt Readings from Last 3 Encounters: 12/10/19 118 kg (260 lb 2.3 oz) 11/30/19 128 kg (282 lb 3 oz) 11/20/19 129.4 kg (285 lb 4.4 oz) Physical Exam: Physical Exam Constitutional: He is oriented to person, place, and time. He appears well- developed and well-nourished. HENT: Head: Normocephalic and atraumatic. Eyes: Pupils are equal, round, and reactive to light. Conjunctivae are normal. Neck: Normal range of motion. Neck supple. No thyromegaly present. Cardiovascular: Normal rate, regular rhythm, normal heart sounds and intact distal pulses. Pulmonary/Chest: Effort normal and breath sounds normal. No respiratory distress. He has no wheezes. Abdominal: Soft. Bowel sounds are normal. He exhibits no distension. Genitourinary: Genitourinary Comments: Schulte in place Musculoskeletal: General: Edema (BLE) present. Comments: Right foot wrapped with ZECHARIAH bandage. External fixator in place. Left foot in diabetic shoe, not examined by this provider Neurological: He is alert and oriented to person, place, and time. Skin: Skin is warm and dry. Psychiatric: He has a normal mood and affect. His behavior is normal. Judgment and thought content normal. Laboratory Review: BP 118/76 Pulse 81 Temp 97.9 F (36.6 C) (Oral) Resp (!) 20 Wt 118 kg (260 lb 2.3 oz) PhZ827% BMI 36.28 kg/m Lab Results Component Value Date HGBA1C 8.8 (H) 11/27/2019 Glucose (mg/dL) Date Value 12/07/2019 243 (H) Creatinine (mg/dL) Date Value 12/07/2019 0.86 Lab Results Component Value Date CHOL 115 11/27/2019 TRIG 177 (H) 11/27/2019 HDL 28 (L) 11/27/2019 LDLCALC 52 11/27/2019 Lab Results Component Value Date TSH 1.63 11/27/2019 No results found for: FREET4 Lab Results Component Value Date WBC 6.95 12/07/2019 HGB 11.3 (L) 12/07/2019 HCT 36.8 (L) 12/07/2019 MCV 87.0 12/07/2019 PLT 210 12/07/2019 This SmartLink has not been configured with any valid records. This SmartLink has not been configured with any valid records. Laboratory and Additional Data Reviewed: Laboratory 12/11/19 8:42 AM Medications 12/11/19 8:42 AM Transcriptions 12/11/19 8:42 AM Thank you for this consultation, we will continue to follow this patient with you. Prachi Frankel PA-C * Helena Glass LPN - 12/11/2019 8:02 AM EDT Date: 12/11/2019 New labs/results as of last note Update from previous note Tmax: 98.7 Urine Output: 2500 Stool: X1 Current Antibiotics: Rocephin 2 gm IV every 24 Hours until 01/02/2020 Previous Antibiotic: Ancef 2,000 mg IV every 8 Hours Pre/Post Procedure I have personally reviewed the labs and results Test results Laboratory and Additional Data Reviewed: U/A 12/08/2019 Glucose: 150 Blood: Small WBC: 7 Bacteria: Rare Labs: Vitamin D, Total 12/07/2019 04:55 16 B12/Folate 12/07/2019 04:55 B12: 828 Folate: >20.0 Ferritin 12/07/2019 04:55 211 Iron 12/07/2019 04:55 30 CMP 12/07/2019 04:55 Glucose: 243 BUN: 17 Creatinine: 0.86 Sodium: 138 Potassium: 3.9 Total Protein: 6.6 Albumin: 2.4 Alk Phos: 76 AST: 28 ALT: 40 Total Bilirubin: 0.4 CBC 12/07/2019 04:54 WBC: 6.95 Hgb: 11.3 Hct: 36.8 Platelets: 210 Lymphocytes Abs: 0.64 CRP 12/05/2019 07:58 85.3 U/A 12/07/2019 Protein: 30 Glucose: >=500 Blood: Small Leukocyte Esterase: Trace Renal Epithelial: <1 Current Cultures: 12/10/2019 Right Foot Wound Aerobic Culture: Rare WBC. Rare Epithelial Cells. No Organisms Seen. Preliminary. 12/08/2019 Urine Aerobic Culture: No Growth (<1,000 CFU/mL). Final. 12/07/2019 Urine Aerobic Culture on arrival to Nursing Rehab Unit: No Growth (<1,000 CFU/mL). Final. 12/02/2019 Right Foot Tissue Aerobic Culture: Normal Chalino After 48 Hours. Final. 12/02/2019 Right Foot Tissue AFB Culture: No Acid Fast Bacilli Seen. Preliminary. 12/02/2019 Right Foot Tissue Anaerobic Culture: No Anaerobic Growth at 2 Days. Final. 12/02/2019 Right Foot Tissue Fungus Culture: Fungal Culture in Progress. Preliminary. 12/01/2019 Blood Culture #1: No Growth After 5 Days. Final. 12/01/2019 Blood Culture #2: No Growth After 5 Days. Final. 11/30/2019 Right Foot Wound Aerobic Culture: Normal Chalino After 48 Hours. Final. 11/21/2019 Left Leg Wound Aerobic Culture: Normal Chalino After 48 Hours. Final. 11/20/2019 Right Foot Tissue Aerobic Culture: Moderate Growth Enterobacter cloacae complex, S=Youssef Sensitive. Final. 11/20/2019 Right Foot Tissue Anaerobic Culture: No Anaerobic Growth at 2 Days. Final. 11/20/2019 Right Foot Bone Aerobic Culture: Light Growth Enterobacter Cloacae Complex, S=Youssef Sensitive. Final. 11/20/2019 Right Foot Bone Anaerobic Culture: No Anaerobic Growth at 2 Days. Final. * Nicholas Sanon - 12/11/2019 7:03 AM EDT OCCUPATIONAL THERAPY Weekly Progress Note Therapy Precautions Orthotic Devices: Yes Lower Extremity: External Fixator, Right Weight Bearing Status: X RLE: Non Wt bearing LLE: Wt bearing as tolerated General Rehab Precautions: Fall risk Cognition Overall Cognitive Status: Within Functional Limits Arousal/Alertness: Appropriate responses to stimuli Orientation Level: Oriented X4 Executive functioning: WFL Safety Judgment: Decreased awareness of need for safety Problem Solving: Assistance required to generate solutions Attention: Attends to quiet environment Hearing Status: WFL Social Interaction: WFL ADL/IADL Grooming : Mod I seated in w/c UE Dressing: Mod I seated EOB LE Dressing: Min, Verbal cueing Footwear: SBA seated EOB Skilled intervention: Pt was able to thread folley but required min verbal cues for sequencing. Pt laterally shifted for clothing mangaement for underwear/shorts. Provided min a and verbal cues to thread shorts/undwear over R foot/external fixator. Edu pt on easier dressing techniques, EOB easier than supine. Bed Mobility Supine to Sit: Mod I HOB raised and HR Functional Transfers Bed to Chair Transfers: Contact Guard with slide board Skilled intervention: Completed slide board transfer from EOB to w/c. Assisted with arm/leg rest application and removal. Pt able to place/remove board correctly without verbal cues and SBA. Exercise Seated Exercises: Therapist provided and edu pt on HEP(thera-band). Pt used red (medium) resistanceband while seated in w/c with SBA completing 10 reps of each exercise: triceps, biceps, horizontal abduction, and shoulder flexion/extension. Therapist provided mod verbal and visual cues for correctexercise form. Pt did not need a break during exercises. Roland# 122 worked on BUE ROM and strengthing to improve activity tolerance for transfers. Pt seated in w/c and tolerated 5 mins of exercise at 3.5 resistance. Pt required zero rest breaks during task. Home Living Type of Home: House Home Layout: One level, Able to live on main level with bedroom/bathroom, Ramped entrance Bathroom Shower/Tub: Tub/shower unit Bathroom Toilet: Standard Bathroom Equipment: Tub transfer bench, Hand-held shower Bathroom Accessibility: Accessible via walker Home Equipment: Wheeled Walker, Wheelchair-manual(mayco rea, ) Additional Comments: Just recently was at [facility] for therapy Prior Level of Function Level of [place]: Independent with ADLs and functional transfers, Independent with homemaking with ambulation Lives With: Alone Receives Help From: Family ADL Assistance: Independent Homemaking Assistance: Independent Vocational: On disability Leisure: (cooking, shopping sports/electronics, target shoot, read, ) Comments: likes to build models, pt stayed in w/c most of the day, walked short distances at home, but was able to walk around stores ok though Goals: Problem: Self-care Deficit Goal: OT- STG toileting Description: OT - Patient will complete toileting with minimal assist for clothing management whileseated with AD/AE if needed to improve self care function. Outcome: Not Addressed Goal: OT- LTG UB dressing Description: OT - Patient will complete UB dressing with modified independence to improve self carefunction. Outcome: Met Goal: OT- LTG LB dressing Description: OT - Patient will complete LB dressing with modified independence while seated to improve self care function. Outcome: Partially Met Note: Min A to thread shorts/underwear over external fixator Goal: OT- LTG toileting Description: OT - Patient will complete toileting with supervision while seated for clothing management with AD/AE if needed to improve self care function. Outcome: Not Addressed Goal: OT- LTG meal preparation Description: OT - Patient will complete simple meal preparation from w/c level with modified independence including item retreival using AE while adhering to NWB precautions of RLE to improve self care function. Outcome: Partially Met Note: Pt practice item retrieval in OT kitchen from w/c with SBA Goal: OT- LTG precautions Description: OT - Patient will demonstrate NWB of RLE precaution management independently to improve safe and appropriate ADL/IADL management. Outcome: Partially Met Note: Weight beared during slide board transfer after given v/c and edu on weight bearing precautions Goal: OT- LTG Self-Care Other Description: OT- Patient will participate in caregiver/family training as needed to enhance a safe return to home environment by time of discharge, including education on fall prevention, HEP, and adaptive equipment needs/DME. Outcome: Partially Met Note: Given HEP (thera-band) during session, will continue to address Problem: Mobility - Impaired Goal: OT- STG toilet transfer Description: OT - Patient will complete toilet transfer with slide board to [facility] with contact guard assist if needed in preparation for ADL's. Outcome: Not Addressed Goal: OT- LTG toilet transfer Description: OT - Patient will complete toilet transfer with slide board to C with modified independence needed in preparation for ADL's. Outcome: Not Addressed Problem: Impaired Strength Goal: OT- LTG Strength Other Description: OT- Patient will tolerate 15- 20 minutes of BUE strengthening, demonstrating independence with HEP by time of discharge, in order to improve strength necessary for functional transfers in preparation for ADLs Outcome: Partially Met Note: ~10 mins, continuing to address Problem: Mobility - Impaired Goal: OT- LTG Mobility Other Description: OT- Patient will complete stand pivot transfer with AD while adhering to NWB precautions of RLE with contact guard assist to improve independence for ADLs. Outcome: Not Addressed Justification of Medical Necessity and Intensity of Service: Pt would benefit from skilled OT services in this inpatient rehabilitation facility with a multidisciplinary team approach to address the above-listed deficits/education needs in order to maximize independence with ADLs/IADLs upon discharge home. Pt wants to return home with family assist and has good potential for success in this environment to increase independence, safety, and quality of life after participating in intense OT. Handoff given to primary RN. Exit Protocol Followed: Yes For complete objective data, detailed plan of care and patient education refer to: OT EVALUATION flow sheet, OT TREATMENT flow sheet, patient Plan of Care, Plan of Care progress note, and Patient Education. * Alena Mora DPM - 12/10/2019 3:13 PM EDT Podiatry Inpatient Follow-up 12/10/2019 Alena Mora DPM [facility] Patient: Dyllan Huertas Date of : 1960 (59 y.o.) PCP: Rohit Aguilar MD ASSESSMENT/PLAN: Dyllan Huertas 59 y.o. male is POD#6 - status post irrigation and debridement with reclosure of right plantar wound and adjustment of external fixator construct (DOS: 12/01/2019 - Dr. Mora) Status post right midfoot wedge resection and application of external fixator for Charcot reconstruction (Date of surgery 11/20/2019 -Dr. Mora). Plan: Patient was seen and evaluated. Discussed all clinical findings. He is doing very well today Continue IV antibiotics per Dr. Awad's recommendation Dressing was changed today with Sera. All pins were cleaned. HV drain was removed Drainage from HV drain previously obtained to be sent to microbiology from 2 days ago was not sent. Swab culture today from incision site was sent to microbiology for culture and sensitivity. Patient can continue physical therapy Strict NWB to right lower extremity at all times WBAT to left lower extremity in good supportive shoes No need for dressing change tomorrow. Will return on Wednesday for follow up evaluation. Please call with any questions or concerns regarding this patient's care. Alena Mora DPM, MSBS Podiatric Physician and Surgeon [phone] SUBJECTIVE: History Since Last Visit: Patient is a pleasant 59-year-old male who is status post irrigation and debridement with re-closure of right plantar ulceration, and adjustment of external fixator construct. He states that he is doing well. Transferred to inpatient rehab. No pedal complaints. No pain. Hehas been getting up with physical therapy form bed to chair. No fevers, nausea, vomiting, chest pain, shortness of breath, or any other constitutional symptoms. Pending Lab and Radiology Results Order Current Status Wound Aerobic Culture Collected (12/10/19 1256) Wound Anaerobic Culture In process Wound Aerobic Culture Preliminary result Interpretation of Testing: I personally reviewed the labs and agree with the interpretation(s). Review of Systems: Constitutional:No fever, no weight loss Resp:No dyspnea. No wheezing Endo:No polyuria Allergic/Immunologic:No hives Psych:No unusual mood swings All other systems reviewed and negative other than HPI OBJECTIVE: Physical Examination: BP 123/77 (BP Location: Left arm, Patient Position: Lying) Pulse 72 Temp 97.8 F (36.6 C) (Oral) Resp 15 Wt 118 kg (260 lb 2.3 oz) SpO2 92% BMI 36.28 kg/m Vascular: DP and PT pulses are palpable 2/4. Cap refill time is brisk to distal digits. Skin temperature is warm to warm from proximal tibial tuberosity to distal digits. Edema much improved from right foot. Neuro: Gross sensation is intact. Protective sensation is absent. Dermatologic: Surgical incision site is well coapted with sutures intact with some maceration to incision. No erythema, edema, or any acute signs of infection. All pin sites are dry without erythema or edema. No drainage from pin sites. HV drain intact with 25 cc of serosanguinous drainage. Musculoskeletal: Patient is able to wiggle digits. Compartments are soft and compressible. No calf pain. Laboratory and Additional Data Reviewed: Reviewed 12/10/19 3:14 PM: Laboratory, Microbiology, Medications and Transcriptions * Marsha Ford - 12/09/2019 5:21 PM EST 12/09/19 7452 Clinical Encounter Type Visit Type Non Crisis Non Crisis Visit Rounding Visited With Patient Visit Length (minutes) 15 Religion Encounters Religion Needs (Emotional encouragment) Spoke briefly with patient while rounding. Words of encouragement offered. Marsha Ford MDiv. Assoc. Management Architect Pager [phone] * Helena Sheldon CNP - 12/09/2019 4:24 PM EST Hospital Medicine Inpatient Consult Follow-up 12/09/2019 Helena Sheldon CNP Patient: Dyllan Huertas Date of : 1960 (59 y.o.) PCP: Rohit Aguilar MD Referring Provider: Sinai Lopez* Consult: Alisa Singh MD: Hospitalist assistance with medical management ASSESSMENT/PLAN: Principal Problem: Osteomyelitis (HCC) Active Problems: 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) JAYDEN (obstructive sleep apnea) Mixed hyperlipidemia Benign prostatic hyperplasia with urinary retention Essential hypertension S/P foot surgery, right S/P foot surgery, right Assessment & Plan Dr. Mora podiatry consulted to manage wound. Extensive wound care is needed. Non wt bearing. Essential hypertension Assessment & Plan Monitor blood pressure per shift. Check kidney function. Continue coreg Benign prostatic hyperplasia with urinary retention Assessment & Plan Has been straight cathing at home. Follows with Dr. Izquierdo. Bladder training, remove schulte, bladder scan and straight cath. Pt has no bladder sensation Mixed hyperlipidemia Assessment & Plan Continue lipitor and fenofibrate. Uses crestor at home. Monitor liver function JAYDEN (obstructive sleep apnea) Assessment & Plan Encourage pt to wear cpap. Wear nasal cannula at 2L at night if he refuses Cpap 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) Assessment & Plan Consult endocrinology. DM has not been well controlled and the infection is making it worse. Monitor blood glucose ACHS, continue lantus, preprandial humalog, and sliding scale. Diabetic diet * Osteomyelitis (HCC) Assessment & Plan Consult ID and continue IV antibiotics. Non wt bearing on right foot. 12/07 Dr. Mora came and had nurse change leg dressing on his left foot with the external fixator. It took over an hour to clean and wrap each pin. Pt tolerated well. Compliant with therapy. Continues antibiotics 12/08 Afebrile, continues with antibiotic therapy DM being managed by endocrinology. Blood pressure is stable. Complaint with therapy SUBJECTIVE: History Since Last Visit: denies pain Pending Lab and Radiology Results Order Current Status Urine Aerobic Culture Preliminary result Current Scheduled Meds: aspirin 162 mg Oral Daily atorvastatin 40 mg Oral Nightly calcium carbonate 1,000 mg Oral Daily carvediloL 12.5 mg Oral BID cefTRIAXone 2,000 mg Intravenous Q24H docusate sodium 100 mg Oral Daily fenofibrate 160 mg Oral Daily with breakfast gabapentin 300 mg Oral Q8H LESLEY insulin glargine 35 Units Subcutaneous BID lispro insulin 0-15 Units Subcutaneous at bedtime insulin lispro 0-30 Units Subcutaneous TID AC levothyroxine 112 mcg Oral Daily magnesium oxide 400 mg Oral Daily melatonin 10 mg Oral at bedtime metFORMIN 1,000 mg Oral BID with meals tamsulosin 0.4 mg Oral After evening meal Review of Systems: All other systems reviewed and negative other than HPI OBJECTIVE: Physical Examination: Vital Signs: BP 107/69 (BP Location: Right arm, Patient Position: Sitting) Pulse 83 Temp 98.5 F (36.9 C) (Oral) Resp 14 SpO2 97% Physical Exam General Appearance: Alert, well appearing, and in no acute distress. HEENT: Head - Normocephalic, atraumatic. Eyes - ALEKS bilaterally and EOMI. Ears - normal external appearance, hearing intact. Nose - normal, no erythema. Throat - mucous membranes moist, pharynx without lesions. Neck: Supple, trachea midline. Cardiovascular: S1, S2 normal. No murmurs, rubs, clicks or gallops appreciated. No pedal edema. Respiratory: Lungs clear to auscultation, no wheezes, rales or rhonchi heard. Abdomen: Soft, non-tender, normal bowel sounds, non-distended, no masses or organomegaly appreciated. Neurological: Limited movement in lower ext. Numbness from knee down. Musculoskeletal: Right foot s/p surgery, swollen. Left foot swollen from surgery history Skin: Normal coloration and turgor. No rashes. External fixator with large incision, on right foot Psych: Alert, oriented x 3. Normal mood and affect. Laboratory and Additional Data Reviewed: Results/Medications Reviewed 12/09/19 4:24 PM: Results from last 7 days Lab Units 12/07/19 0455 12/05/19 0758 SODIUM mmol/L 138 139 POTASSIUM mmol/L 3.9 4.1 CHLORIDE mmol/L 104 104 BUN mg/dL 17 19 CREATININE mg/dL 0.86 0.86 GLUCOSE mg/dL 243* 223* CALCIUM mg/dL 9.4 9.1 Results from last 7 days Lab Units 12/07/19 0454 12/05/19 0758 WBC K/mcL 6.95 7.98 HGB g/dL 11.3* 11.4* HCT % 36.8* 36.3* PLT K/mcL 210 228 Results from last 7 days Lab Units 12/07/19 0455 ALK PHOS U/L 76 BILIRUBIN TOTAL mg/dL 0.4 TOTAL PROTEIN g/dL 6.6 ALTR U/L 40 AST U/L 28 CULTURES: Reviewed 12/09/19 4:24 PM Radiology/Imaging: Reviewed 12/09/19 4:24 PM * Jian Maravilla, SCRAP STRIPPER HAND - 12/09/2019 12:26 PM EST PHYSICAL THERAPY Daily Progress Note Therapy Precautions Therapy Precautions Orthotic Devices: Yes Lower Extremity: External Fixator, Right Weight Bearing Status: X RLE: Non Wt bearing LLE: Wt bearing as tolerated General Rehab Precautions: Fall risk Bed Mobility Bed Mobility Rolling: Stand by assistance Supine to Sit: Stand by assistance Sit to Supine: Stand by assistance Skilled Intervention: Pt performs bed mobility on flat mat table this session. Transfers Transfers Lateral Transfers: Min Fire Fighter Airport: (Slide board) Skilled Intervention: Pt performs slide board transfer x2 from w/c to mat table and back to w/c. Ptrequires assistance with set up, and verbal cues for technique with slide board. Exercise Exercises Ankle Pumps: x20 L Straight Leg Raise: x20 isela AAROM Heelslides: x20 isela AAROM Hip Abduction: x20 isela AAROM Seated Exercises: LAQs, marching, hip abd/add with manual resistance, and HS curls with manual resistance x20 reps each to increase LE strength. Short Arc Quad: x20 isela Skilled Intervention: SCRAP STRIPPER HAND supported pts L LE during supine exercises due to external fixator. Pt performs UE pull downs with both wide and reverse manufacturing maintenance technician on cable column to increase UE strength for transfers. Pt performs 2 sets of 15 reps at 80# for pull downs. Pt also performs scapular retractions on cable column to further improve UE strength for transfers. Pt performs 2 sets of 15 reps at60# with retractions. Pt was provided with verbal cues for seated posture with cable column exercises for safety. Home Living Home Living Type of Home: House Home Layout: One level, Able to live on main level with bedroom/bathroom, Ramped entrance Bathroom Shower/Tub: Tub/shower unit Bathroom Accessibility: Accessible via walker Home Equipment: Wheeled Walker, Wheelchair-manual(lewler seymouroodajuan, ) Additional Comments: Just recently was at [facility] for therapy Prior Level of Function Prior Function Level of [place]: Independent with ADLs and functional transfers, Independent with homemaking with ambulation Lives With: Alone Receives Help From: Family ADL Assistance: Independent Homemaking Assistance: Independent Vocational: On disability Leisure: (cooking, shopping sports/electronics, target shoot, read, ) Comments: likes to build models, pt stayed in w/c most of the day, walked short distances at home, but was able to walk around stores ok though Exit Protocol Followed: Yes For complete objective data, detailed plan of care and patient education refer to: PT EVALUATION flow sheet, PT TREATMENT flow sheet, patient Plan of Care, Plan of Care progress note, and Patient Education. * Princess Silva, CHISEL TRIMMER - 12/09/2019 12:20 PM EST OCCUPATIONAL THERAPY Daily Progress Note Therapy Precautions Orthotic Devices: Yes Lower Extremity: External Fixator, Right Weight Bearing Status: X RLE: Non Wt bearing LLE: Wt bearing as tolerated General Rehab Precautions: Fall risk Cognition Overall Cognitive Status: Within Functional Limits Arousal/Alertness: Appropriate responses to stimuli Orientation Level: Oriented X4 Executive functioning: WFL Safety Judgment: Good awareness of safety precautions Problem Solving: Able to problem solve independently Attention: Attends to distracted environment Hearing Status: WFL Social Interaction: Appropriate, Cooperative Skilled Intervention: Followed multi-step commands throughout tx session. ADL/IADL Home Management: Stand by assistance(kitchen mobility) Skilled Intervention: Completed item retrieval in kitchen at w/c level. Utilizing inspection supervisor to reach to floor and above head when completing kitchen mobility task. Functional Transfers Bed to Chair Transfers: Stand by assist Skilled Intervention: Completed slide board transfer from w/c to mat table and from mat table to w/c. Min cues for w/c placement when completing slide board transfer. Interventions Balance Training: Sitting reaching activities Skilled Intervention: Completed several dynamic sitting balance tasks with #1 weights added to BUEs. Particiated in dynamic sitting tasks ~10 minutes with short seated rest break after then continued~10 minutes. Completed tasks to increase ease with ADLs and mobility. Home Living Type of Home: House Home Layout: One level, Able to live on main level with bedroom/bathroom, Ramped entrance Bathroom Shower/Tub: Tub/shower unit Bathroom Toilet: Standard Bathroom Equipment: Tub transfer bench, Hand-held shower Bathroom Accessibility: Accessible via walker Home Equipment: Wheeled Walker, Wheelchair-manual(mayco scoodajuan, ) Additional Comments: Just recently was at [facility] for therapy Prior Level of Function Level of [place]: Independent with ADLs and functional transfers, Independent with homemaking with ambulation Lives With: Alone Receives Help From: Family ADL Assistance: Independent Homemaking Assistance: Independent Vocational: On disability Leisure: (cooking, shopping sports/electronics, target shoot, read, ) Comments: likes to build models, pt stayed in w/c most of the day, walked short distances at home, but was able to walk around stores ok though Justification of Medical Necessity and Intensity of Service: Pt would benefit from skilled OT services in this inpatient rehabilitation facility with a multidisciplinary team approach to address the above-listed deficits/education needs in order to maximize independence with ADLs/IADLs upon discharge home. Pt wants to return home with family assist and has good potential for success in this environment to increase independence, safety, and quality of life after participating in intense OT. Handoff given to primary RN. Exit Protocol Followed: Yes For complete objective data, detailed plan of care and patient education refer to: OT EVALUATION flow sheet, OT TREATMENT flow sheet, patient Plan of Care, Plan of Care progress note, and Patient Education. Princess Florence OTA - 12/09/2019 9:57 AM EST OCCUPATIONAL THERAPY Daily Progress Note Therapy Precautions Orthotic Devices: Yes Lower Extremity: External Fixator, Right Weight Bearing Status: X RLE: Non Wt bearing LLE: Wt bearing as tolerated General Rehab Precautions: Fall risk Cognition Overall Cognitive Status: Within Functional Limits Arousal/Alertness: Appropriate responses to stimuli Orientation Level: Oriented X4 Executive functioning: WFL Safety Judgment: Good awareness of safety precautions Problem Solving: Able to problem solve independently Attention: Attends to distracted environment Hearing Status: WFL Social Interaction: Appropriate, Cooperative Skilled Intervention: Followed multi-step commands throughout tx session. Exercise Seated Exercises: Seated in chair completed BUE stengethening on PRIMUS completing item 181 with #34 for 5 minutes. Completed item 802 with #44 added completing for 3 minutes on each UE. Pt motivatedand agreeable to all OT session. Completed exercises to increase strength in biceps, triceps, deltoid, and trapeze muscles for independence in ADLs and fxl mobility. Home Living Type of Home: House Home Layout: One level, Able to live on main level with bedroom/bathroom, Ramped entrance Bathroom Shower/Tub: Tub/shower unit Bathroom Toilet: Standard Bathroom Equipment: Tub transfer bench, Hand-held shower Bathroom Accessibility: Accessible via walker Home Equipment: Wheeled Walker, Wheelchair-manual(mayco rea, ) Additional Comments: Just recently was at [facility] for therapy Prior Level of Function Level of [place]: Independent with ADLs and functional transfers, Independent with homemaking with ambulation Lives With: Alone Receives Help From: Family ADL Assistance: Independent Homemaking Assistance: Independent Vocational: On disability Leisure: (cooking, shopping sports/electronics, target shoot, read, ) Comments: likes to build models, pt stayed in w/c most of the day, walked short distances at home, but was able to walk around stores ok though Justification of Medical Necessity and Intensity of Service: Pt would benefit from skilled OT services in this inpatient rehabilitation facility with a multidisciplinary team approach to address the above-listed deficits/education needs in order to maximize independence with ADLs/IADLs upon discharge home. Pt wants to return home with family assist and has good potential for success in this environment to increase independence, safety, and quality of life after participating in intense OT. Handoff given to primary RN. Exit Protocol Followed: Yes For complete objective data, detailed plan of care and patient education refer to: OT EVALUATION flow sheet, OT TREATMENT flow sheet, patient Plan of Care, Plan of Care progress note, and Patient Education. * Jian Maravilla, SCRAP STRIPPER HAND - 12/09/2019 8:45 AM EST PHYSICAL THERAPY Daily Progress Note Therapy Precautions Therapy Precautions Orthotic Devices: Yes Lower Extremity: External Fixator, Right Weight Bearing Status: X RLE: Non Wt bearing LLE: Wt bearing as tolerated General Rehab Precautions: Fall risk Transfers Transfers Sit to Stand: Mod Fire Fighter Airport: (Parallel bars) Skilled Intervention: Pt performs STSx3 with mod inside parallel bars to improve L LE strength, LE WB, and standing tolerance. Pt is able to maintain NWB on R LE with verbal cues from SCRAP STRIPPER HAND. Pt is ableto stands for 1 min 30 sec each trial before sitting back down. Pt requires min-mod for eccentric control when performing stand to sit transfer. Pt needing verbal cues for hand placement and sequencing with transfers. Pt takes extended seated rest breaks in between each trial due to fatigue. Exercise Exercises Skilled Intervention: Pt performs UE push downs on MyCabbage machine to improve UE strength for transfers. Pt performs 3 sets of 10 reps at 50# on MyCabbage. Pt is provided verbal cues for sitting posture and scapular retraction while perfoming push downs for shoulder safety. Home Living Home Living Type of Home: House Home Layout: One level, Able to live on main level with bedroom/bathroom, Ramped entrance Bathroom Shower/Tub: Tub/shower unit Bathroom Accessibility: Accessible via walker Home Equipment: Wheeled Walker, Wheelchair-manual(mayco rea, ) Additional Comments: Just recently was at [facility] for therapy Prior Level of Function Prior Function Level of [place]: Independent with ADLs and functional transfers, Independent with homemaking with ambulation Lives With: Alone Receives Help From: Family ADL Assistance: Independent Homemaking Assistance: Independent Vocational: On disability Leisure: (cooking, shopping sports/electronics, target shoot, read, ) Comments: likes to build models, pt stayed in w/c most of the day, walked short distances at home, but was able to walk around stores ok though Exit Protocol Followed: Yes For complete objective data, detailed plan of care and patient education refer to: PT EVALUATION flow sheet, PT TREATMENT flow sheet, patient Plan of Care, Plan of Care progress note, and Patient Education. * Sinai Lopez MD - 12/08/2019 7:52 PM EST Physical Medicine & Rehabilitation Inpatient Progress 12/10/2019 Sinai Lopez MD [facility] Patient: Dyllan Huertas Date of : 1960 (59 y.o.) PCP: Rohit Aguilar MD Date of Admission: 12/06/2019 ASSESSMENT/PLAN: Rehabilitation Diagnosis: Rehab Impairement Code (JOSE): Ortho (12/05/19699) Ortho IGC: 08.9 - Other Orthopaedic (12/05/19699) Discharge Barriers: Mobility, ADL, Self Care Impairment: Intensive PT/OT Decreased Endurance: Intensive PT/OT , patient requires AFO on left lower limb discussed with patient and PT Skin: Turn every 2 hours, monitor for skin breakdown per rehabilitation nursing, dressing changes per podiatry Nutritional Status: Nutrition Consult Pulmonary Rehabilitation: Encourage incentives spirometry and deep breathing exercises Neurogenic Bladder: remove schulte monitor left lower limb charco ankle -obtain Xray -screw broken in left lower limb - per podiatry no change in acitivty restrictions Mixed hyperlipidemia Assessment & Plan Statin. 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 Consult endocrine * Osteomyelitis (HCC) Assessment & Plan ID following, podiatry following. See rehab plan. Therapy Updates: evals underway Attestation: Considering all of the information above, it is my best judgment that this patient continues to require an intensive rehabilitation multidisciplinary program as previously described due to the necessity of medical management, rehabilitation needs, and complexity of nursing care under the supervision of a rehabilitation physician (patient requires at least 3 rehab physician visits per week). It can be reasonably expected that patient will participate in and benefit from a multidisciplinary team approach to maximize functional independence that is best served with acute inpatient rehabilitationas opposed to lower level of care. The teams needed are: Rehabilitation Nursing for medication management, bowel/bladder care, skin care, and respiratory care Physical Therapy for strengthening, endurance, mobility, gait and balance training, ROM, ADL's, andpatient/family training Occupational Therapy for strengthening, endurance, mobility, gait and balance training, ROM, ADL's,and patient/family training Rehabilitation Psychology for coping Therapeutic Recreation for community re-entry Social Work for integrated social support and discharge planning SUBJECTIVE: Date of Admission: 12/06/2019 Informant(s): Patient History of Present Illness: Per nursing, had difficulty cathing patient. Patient reports that he no longer has bladder sensation. Review of Systems: All pertinent positives and negative in HPI/Interval History. All others negative. Allergies: Patient has no known allergies. Current HOSPITAL Medications: Current Facility-Administered Medications Medication Dose Route Frequency Provider Last Rate Last Dose acetaminophen (TYLENOL) tablet 650 mg 650 mg Oral Q4H PRN Helena Sheldon CNP 650 mg at 12/09/19 2142 albuterol (PROVENTIL) 2.5 mg /3 mL (0.083 %) nebulizer solution 2.5 mg 2.5 mg Inhalation Q2H PRN Helena Sheldon CNP aspirin EC tablet 162 mg 162 mg Oral Daily Helena Sheldon CNP 162 mg at 12/10/19 0847 atorvastatin (LIPITOR) tablet 40 mg 40 mg Oral Nightly Helena Sheldon CNP 40 mg at 12/09/19 2142 bisacodyL (DULCOLAX) suppository 10 mg 10 mg Rectal Daily PRN Helena Sheldon CNP 10 mg at 12/08/19 2242 calcium carbonate (TUMS) chewable tablet 1,000 mg 1,000 mg Oral Daily Helena Sheldon CNP 1,000mg at 12/10/19 0847 carvediloL (COREG) tablet 12.5 mg 12.5 mg Oral BID Helena Sheldon CNP 12.5 mg at 12/10/19 0850 cefTRIAXone (ROCEPHIN) IVPB 2 g (premix) 2,000 mg Intravenous Q24H Helena Sheldon CNP Stopped at 12/10/19 1744 docusate sodium (COLACE) capsule 100 mg 100 mg Oral Daily Helena Sheldon CNP 100 mg at 12/10/19 0848 docusate sodium (COLACE) capsule 100 mg 100 mg Oral BID PRN Helena Sheldon CNP fenofibrate tablet 160 mg 160 mg Oral Daily with breakfast Helena Sheldon CNP 160 mg at 12/10/19 0848 gabapentin (NEURONTIN) capsule 300 mg 300 mg Oral Q8H [facility] Helena Sheldon CNP 300 mg at 12/10/19 1517 insulin glargine (LANTUS) injection 35 Units 35 Units Subcutaneous BID Andrés Andre CNP 35 Units at 12/10/19 0848 insulin lispro (HumaLOG) injection 0-15 Units 0-15 Units Subcutaneous at bedtime Helena Sheldon CNP 2 Units at 12/07/19 2111 insulin lispro (HumaLOG) injection 0-30 Units 0-30 Units Subcutaneous TID Andrés Andre CNP 14 Units at 12/10/19 1733 levothyroxine (SYNTHROID, LEVOTHROID) tablet 112 mcg 112 mcg Oral Daily Helena Sheldon CNP 112mcg at 12/10/19 0511 magnesium oxide (MAG-OX) tablet 400 mg 400 mg Oral Daily Helena Sheldon CNP 400 mg at 12/10/200748 melatonin Tab 10 mg 10 mg Oral at bedtime Helena Sheldon CNP 10 mg at 12/09/19 2142 metFORMIN (GLUCOPHAGE) tablet 1,000 mg 1,000 mg Oral BID with meals Helena Sheldon CNP 1,000 mg at 12/10/19 1733 naloxone (NARCAN) injection 0.1 mg 0.1 mg Intravenous PRN Helena Sheldon CNP And naloxone (NARCAN) injection 0.4 mg 0.4 mg Intravenous PRN Helena Sheldon CNP nitroGLYCERIN (NITROSTAT) SL tablet 0.4 mg 0.4 mg Sublingual Q5 Min PRN Helena Sheldon CNP ondansetron (ZOFRAN-ODT) disintegrating tablet 4 mg 4 mg Oral Q6H PRN Helena Sheldon CNP senna (SENOKOT) tablet 8.6 mg 1 tablet Oral BID PRN Helena Sheldon CNP sodium phosphates (FLEETS ADULT) 19-7 gram/118 mL enema 1 each 1 each Rectal Daily PRN Helena Jaimes CNP tamsulosin (FLOMAX) 24 hr capsule 0.4 mg 0.4 mg Oral After evening meal Helena Sheldon CNP 0.4mg at 12/10/19 1733 traZODone (DESYREL) tablet 50 mg 50 mg Oral Nightly PRN Helena Sheldon, DE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 OBJECTIVE: Physical Examination: BP 123/77 (BP Location: Left arm, Patient Position: Lying) Pulse 72 Temp 97.8 F (36.6 C) (Oral) Resp 15 Wt 118 kg (260 lb 2.3 oz) SpO2 92% BMI 36.28 kg/m GENERAL: General Appearance: In no apparent distress, well nourished HEENT: Normocephalic, atraumatic, neck supple, EOMI, PER Respiratory: On room air, no respiratory distress Cardiovascular: Peripheral pulses palpable, 2+ edema b/l Abdomen: Nontender, nondistended Musculoskeletal: left charcot ankle; s/p right ex-fix and debridement with wound closure; decreasedPROM of left ankle dorsiflexion and plantar flexion. Skin: ZECHARIAH wraps on lower limbs, right lower limb dressing in tact. Psychiatric: Normal mood and affect, appropriate insight and judgement CRANIAL NERVES: II, III: Pupils: PER III, IV, : Eye Movements: Normal (EOMI, No ptosis, No nystagmus) V - Facial Sensation: Normal VII: Face Symmetry & Strength: Normal VIII Hearing: Normal IX, X Palate:: Normal XI - Shoulder Shrug: Normal XII - Tongue Protrusion: Normal GAIT: Unable to walk due to no assistance to safely evaluate COORDINATION & GROSS MOTOR: Abnormal Movements: None Tone: Normal MOTOR - MUSCLE STRENGTH: Right Muscle Strength Left 5 Shoulder Abduction 5 5 Elbow Flexion 5 5 Elbow Extension 5 5 Wrist Extension 5 5 Finger Abduction 5 5 Hip Flexion 5 5 Knee Extension 5 EDDI Knee Flexion 5 EDDI Dorsiflexion 4 EDDI Plantar Flexion 4 MOTOR MARTINO: 5 Normal Power 4 Movement against moderate resistance over a full range of motion 3 Movement against gravity over almost full range of motion 2 Movement with gravity eliminated over almost full range of motion 1 Trace Movement (flicker of contraction visible or palpable) 0 No Movement (no contraction visible or palpable) EDDI Unable to Assess SENSATION: Light Touch: impaired Position Sense: impaired Lab Results Component Value Date ALBUMIN 2.4 (L) 12/07/2019 ALT 40 12/07/2019 AST 28 12/07/2019 BUN 17 12/07/2019 CALCIUM 9.4 12/07/2019 CL 104 12/07/2019 CHOL 115 11/27/2019 CREATININE 0.86 12/07/2019 GLUCOSE 243 (H) 12/07/2019 HDL 28 (L) 11/27/2019 HCT 36.8 (L) 12/07/2019 HGB 11.3 (L) 12/07/2019 HGBA1C 8.8 (H) 11/27/2019 MG 2.1 11/24/2019 PLT 210 12/07/2019 K 3.9 12/07/2019 NA 138 12/07/2019 TRIG 177 (H) 11/27/2019 WBC 6.95 12/07/2019 Pending Lab and Radiology Results Order Current Status Wound Anaerobic Culture In process Wound Aerobic Culture Preliminary result * Helena Sheldon CNP - 12/08/2019 5:30 PM EST [facility] Medicine Inpatient Consult Follow-up Helena Sheldon CNP Patient: Dyllan Huertas Date of : 1960 (59 y.o.) PCP: Rohit Aguilar MD Referring Provider: Sinai Lopez* Consult: Alisa Singh MD: Hospitalist assistance with medical management ASSESSMENT/PLAN: Principal Problem: Osteomyelitis (HCC) Active Problems: 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) JAYDEN (obstructive sleep apnea) Mixed hyperlipidemia Benign prostatic hyperplasia with urinary retention Essential hypertension S/P foot surgery, right S/P foot surgery, right Assessment & Plan Dr. Mora podiatry consulted to manage wound. Extensive wound care is needed. Non wt bearing. Essential hypertension Assessment & Plan Monitor blood pressure per shift. Check kidney function. Continue coreg Benign prostatic hyperplasia with urinary retention Assessment & Plan Has been straight cathing at home. Follows with Dr. Izquierdo. Bladder training, remove schulte, bladder scan and straight cath. Pt has no bladder sensation Mixed hyperlipidemia Assessment & Plan Continue lipitor and fenofibrate. Uses crestor at home. Monitor liver function JAYDEN (obstructive sleep apnea) Assessment & Plan Encourage pt to wear cpap. Wear nasal cannula at 2L at night if he refuses Cpap 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) Assessment & Plan Consult endocrinology. DM has not been well controlled and the infection is making it worse. Monitor blood glucose ACHS, continue lantus, preprandial humalog, and sliding scale. Diabetic diet * Osteomyelitis (HCC) Assessment & Plan Consult ID and continue IV antibiotics. Non wt bearing on right foot. 12/07 Dr. Mora came and had nurse change leg dressing on his left foot with the external fixator. It took over an hour to clean and wrap each pin. Pt tolerated well. Compliant with therapy. Continues antibiotics SUBJECTIVE: History Since Last Visit: denies pain Pending Lab and Radiology Results Order Current Status Urine Aerobic Culture Preliminary result Current Scheduled Meds: aspirin 162 mg Oral Daily atorvastatin 40 mg Oral Nightly calcium carbonate 1,000 mg Oral Daily carvediloL 12.5 mg Oral BID cefTRIAXone 2,000 mg Intravenous Q24H docusate sodium 100 mg Oral Daily fenofibrate 160 mg Oral Daily with breakfast gabapentin 300 mg Oral Q8H LESLEY insulin glargine 35 Units Subcutaneous BID lispro insulin 0-15 Units Subcutaneous at bedtime insulin lispro 0-30 Units Subcutaneous TID AC levothyroxine 112 mcg Oral Daily magnesium oxide 400 mg Oral Daily melatonin 10 mg Oral at bedtime metFORMIN 1,000 mg Oral BID with meals tamsulosin 0.4 mg Oral After evening meal Review of Systems: All other systems reviewed and negative other than HPI OBJECTIVE: Physical Examination: Vital Signs: BP 107/69 (BP Location: Right arm, Patient Position: Sitting) Pulse 83 Temp 98.5 F (36.9 C) (Oral) Resp 14 SpO2 97% Physical Exam General Appearance: Alert, well appearing, and in no acute distress. HEENT: Head - Normocephalic, atraumatic. Eyes - ALEKS bilaterally and EOMI. Ears - normal external appearance, hearing intact. Nose - normal, no erythema. Throat - mucous membranes moist, pharynx without lesions. Neck: Supple, trachea midline. Cardiovascular: S1, S2 normal. No murmurs, rubs, clicks or gallops appreciated. No pedal edema. Respiratory: Lungs clear to auscultation, no wheezes, rales or rhonchi heard. Abdomen: Soft, non-tender, normal bowel sounds, non-distended, no masses or organomegaly appreciated. Neurological: Limited movement in lower ext. Numbness from knee down. Musculoskeletal: Right foot s/p surgery, swollen. Left foot swollen from surgery history Skin: Normal coloration and turgor. No rashes. External fixator with large incision, on right foot Psych: Alert, oriented x 3. Normal mood and affect. Laboratory and Additional Data Reviewed: Results/Medications Reviewed 12/09/19 5:30 PM: Results from last 7 days Lab Units 12/07/19 0455 12/05/19 0758 SODIUM mmol/L 138 139 POTASSIUM mmol/L 3.9 4.1 CHLORIDE mmol/L 104 104 BUN mg/dL 17 19 CREATININE mg/dL 0.86 0.86 GLUCOSE mg/dL 243* 223* CALCIUM mg/dL 9.4 9.1 Results from last 7 days Lab Units 12/07/19 0454 12/05/19 0758 WBC K/mcL 6.95 7.98 HGB g/dL 11.3* 11.4* HCT % 36.8* 36.3* PLT K/mcL 210 228 Results from last 7 days Lab Units 12/07/19 0455 ALK PHOS U/L 76 BILIRUBIN TOTAL mg/dL 0.4 TOTAL PROTEIN g/dL 6.6 ALTR U/L 40 AST U/L 28 CULTURES: Reviewed 12/09/19 5:30 PM Radiology/Imaging: Reviewed 12/09/19 5:30 PM * Jian Maravilla, S[employer]AP [employer]IP[employer] - 12/08/2019 4:11 PM EST PHYSICAL THERAPY Daily Progress Note Therapy Precautions Therapy Precautions Orthotic Devices: Yes Lower Extremity: External Fixator, Right Weight Bearing Status: X RLE: Non Wt bearing LLE: Wt bearing as tolerated General Rehab Precautions: Fall risk Transfers Transfers Lateral Transfers: Contact guard, Min(sliding board) Skilled Intervention: Pt seen from [id number] this date d/t acquiring new w/c. Pt was edcuated on proper management of new w/c mechanics, and how to safely position external fixator on new leg rest. Pt performs slide board transfer from old w/c to new with CGA-min. SCRAP STRIPPER [employer] provided min for supporting L LE off floor throughout transfer. Pt performs slide board transfer x4 to mat table and w/c to improve independence with tansfers. Pt needing verbal cues for set up, and safety. Gait/Locomotion Gait / Locomotion Wheelchair Mobility: Stand by assistance Wheelchair distance: 150 Feet Skilled Intervention: Pt ambulates in w/c on even surfaces and up/down ramps with SBA. Pt performs 3 turns, and propels himself with isela UEs, and L LE. Exercise Exercises Seated Exercises: Pt performs w/c push ups x15 reps to improve UE strength for transfers. . Home Living Home Living Type of Home: House Home Layout: One level, Able to live on main level with bedroom/bathroom, Ramped entrance Bathroom Shower/Tub: Tub/shower unit Bathroom Accessibility: Accessible via walker Home Equipment: Wheeled Walker, Wheelchair-manual(mayco rea, ) Additional Comments: Just recently was at [facility] for therapy Prior Level of Function Prior Function Level of [place]: Independent with ADLs and functional transfers, Independent with homemaking with ambulation Lives With: Alone Receives Help From: Family ADL Assistance: Independent Homemaking Assistance: Independent Vocational: On disability Leisure: (cooking, shopping sports/electronics, target shoot, read, ) Comments: likes to build models, pt stayed in w/c most of the day, walked short distances at home, but was able to walk around stores ok though Exit Protocol Followed: Yes For complete objective data, detailed plan of care and patient education refer to: PT EVALUATION flow sheet, PT TREATMENT flow sheet, patient Plan of Care, Plan of Care progress note, and Patient Education. * Nicholas Sanon R - 12/08/2019 2:22 PM EST OCCUPATIONAL THERAPY Daily Progress Note Therapy Precautions Orthotic Devices: Yes Lower Extremity: External Fixator, Right Weight Bearing Status: X RLE: Non Wt bearing LLE: Wt bearing as tolerated General Rehab Precautions: Fall risk Cognition Overall Cognitive Status: Within Functional Limits Arousal/Alertness: Appropriate responses to stimuli Orientation Level: Oriented X4 Executive functioning: WFL Safety Judgment: Decreased awareness of need for safety Problem Solving: Able to problem solve independently Attention: Attends to quiet environment Hearing Status: WFL Social Interaction: WFL Functional Transfers Bed to Chair Transfers: Contact Guard(with slide board) Skilled Intervention: Pt transfers from w/c to/from mat table with slide board and CGA. Pt able to place/remove slide board and arm rest with SBA. Reminded pt about NWB precautions during, pt acknowledged but weight beared through RLE during transfer. Exercise Seated Exercises: Primus #181 worked on upward shoulder flexion strengthing and BUE ROM to improve activity tolerance for ADLS. Pt seated in w/c and tolerated 3 mins of exercise at 7.2 resistance and2 min at 6.2 resistance. Pt required no rest breaks during exercise. Interventions Dylan gerber worked on dynamic sitting balance and BUE ROM/strength to improve strength and endurance for transfers and ADLs. Pt sat EOM with supervision with 2lb BUE wrist weights.Pt tossed 15 bags x6 while bending and reaching for items in all planes(floor level,reaching side to side and behind withopposite UE). Pt alternated weight shifting through BUE throughout activity. Pt required verbal andvisual instruction to achieve correct form for weight shifting. Pt required two rest breaks during task and had no LOB during task. Pt compliant with NWB precautions during activity. Home Living Type of Home: House Home Layout: One level, Able to live on main level with bedroom/bathroom, Ramped entrance Bathroom Shower/Tub: Tub/shower unit Bathroom Toilet: Standard Bathroom Equipment: Tub transfer bench, Hand-held shower Bathroom Accessibility: Accessible via walker Home Equipment: Wheeled Walker, Wheelchair-manual(mayco rea, ) Additional Comments: Just recently was at [facility] for therapy Prior Level of Function Level of [place]: Independent with ADLs and functional transfers, Independent with homemaking with ambulation Lives With: Alone Receives Help From: Family ADL Assistance: Independent Homemaking Assistance: Independent Vocational: On disability Leisure: (cooking, shopping sports/electronics, target shoot, read, ) Comments: likes to build models, pt stayed in w/c most of the day, walked short distances at home, but was able to walk around stores ok though Handoff given to PT. Exit Protocol Followed: Yes For complete objective data, detailed plan of care and patient education refer to: OT EVALUATION flow sheet, OT TREATMENT flow sheet, patient Plan of Care, Plan of Care progress note, and Patient Education. * Joi Lane, RD - 12/08/2019 1:03 PM EST Nutrition Care Initial Assessment Reason for visit: Dietitian Screen Nutrition Diagnosis: Increased nutrient needs related to need for wound healing as evidenced by R ankle wound (is sutured shut). Nutrition Intervention/Prescription: Initiate Medical Food Supplement Diet: continue CHO consistent 75gm CHO/meal, cardiac Oral nutrition supplement: will start Ujde BID Nutrition Goals: PO intake > 75% most meals + Jude x next 6 days Nutrition Education: RDN encouraged po + protein + Jude to help with wound healing. Assessment: Admit dx/Pertinent clinical information: S/p ankle I&D. Pt in rehab. Past Medical History: Diagnosis Date Coronary artery disease Diabetes mellitus, type 2 (HCC) Hyperlipidemia Hypertension Hypothyroidism Peripheral neuropathy Sleep apnea, obstructive does not use CPAP Height: 5'11 No current wt. BMI: using 11/30 wt: 282#. Weight hx: Wt has been steady per the below records. Wt Readings from Last 5 Encounters: 11/30/19 128 kg (282 lb 3 oz) 11/20/19 129.4 kg (285 lb 4.4 oz) 11/10/19 129.3 kg (285 lb) 08/17/19 129.3 kg (285 lb) 05/19/19 128.8 kg (284 lb) Current diet order: CHO consistent 75gm CHO/meal, cardiac Recent intake: 75-100%. Current intake meets estimated needs. Patient/family comments: Pt just received lunch in his room when RDN in there. States eating good here and SCR[employer]IP[employer]. Agrees to Jude to help with wound healing. Difficulty Chewing/Swallowing: No Skin Integrity: S/p ankle debridment, wound sutured shut, but is draining GI Function: LBM 3/ Physical Appearance: no signs or symptoms of malnutrition Labs: Recent Labs 12/07/19 0455 NA 138 K 3.9 BICARB 29 CL 104 GLUCOSE 243* BUN 17 CREATININE 0.86 Scheduled Meds: aspirin 162 mg Oral Daily atorvastatin 40 mg Oral Nightly calcium carbonate 1,000 mg Oral Daily carvediloL 12.5 mg Oral BID cefTRIAXone 2,000 mg Intravenous Q24H docusate sodium 100 mg Oral Daily fenofibrate 160 mg Oral Daily with breakfast gabapentin 300 mg Oral Q8H LESLEY insulin glargine 35 Units Subcutaneous BID lispro insulin 0-15 Units Subcutaneous at bedtime insulin lispro 0-30 Units Subcutaneous TID AC levothyroxine 112 mcg Oral Daily magnesium oxide 400 mg Oral Daily melatonin 10 mg Oral at bedtime metFORMIN 1,000 mg Oral BID with meals tamsulosin 0.4 mg Oral After evening meal Continuous Infusions: Used adjBW to calculate needs. Needs- 2400kcals (25kcals/kg) Protein- 116gms (1.2gms/kg) Will continue to follow. Joi Lane RDN, LD Dietitian's Office [phone] * Eli Hassan CTRS - 12/08/2019 1:00 PM EST Recreational Therapy Daily Note Patient attended individual session this date to promote increased activity tolerance, cognitive exercise, positive leisure participation, awareness of leisure adaptations and/or resources, application of positive coping skills, positive social interaction. Patient participated with moderate effort. Patient was contacted in room and receptive to going to TR tx area. He was presented with several mind exercise (deduction puzzle) worksheets to have in his room (his request yesterday). He was willing to try a new game ([employer]), engaging in x3 rounds. He gave up during the third round, demonstrating difficulty with pattern making. Patient asked to play Niupai, voicing familiarty; he commented that he played the game in high school in a special math class he was in. Patient did well overall with matching, benefiting from occasional cues and extra time. Patient then c/o feeling like he had a gas bubble in his chest, commenting that it did not feel heart related. RNNegar, contacted. Patient unable to concentrate on worksheet and c/o perspiring and feeling too warm; perspiration not noted. RN informed and pt was returned to his room. Continue with TR treatment goals as stated in TR assessment. Treatment time: 4511-1072; 45 min Exit protocol followed: Yes; returned to room and handed off to RN. * Bhakti Shields OT - 12/08/2019 11:15 AM EST OCCUPATIONAL THERAPY Daily Progress Note POC updated following discussion in team meeting today. Per Dr. Lopez, patient is to avoid static standing 2* decreased stability of the LLE. Patient is to complete slide board transfers and/or stand pivot transfers without 'hopping'. Plan to discharge home at slide board and wheelchair level. Discussed with patient discharge plans. Patient receptive to use of BSC and sponge bathing for period of time once he is discharged home. Educated patient on precautions and plan for wheelchair level. Patient shares his niece will be able to complete grocery shopping once he is home. Therapy Precautions Orthotic Devices: Yes Lower Extremity: External Fixator, Right Weight Bearing Status: X RLE: Non Wt bearing LLE: Wt bearing as tolerated(To have walking shoe/AFO. Stand pivot/slide board only) General Rehab Precautions: Fall risk Cognition Overall Cognitive Status: Within Functional Limits Arousal/Alertness: Appropriate responses to stimuli Orientation Level: Oriented X4 Executive functioning: WFL Safety Judgment: Decreased awareness of need for safety Problem Solving: Able to problem solve independently Attention: Attends to quiet environment Hearing Status: WFL Social Interaction: WFL Bed Mobility Rolling: Modified independence Supine to Sit: Modified independence Skilled Intervention: Mod Ind for bed mobility, transferring to seated position at EOB with HOB flattened. Functional Transfers Bed to Chair Transfers: Contact Guard(slide board) Skilled Intervention: Pt transfers from bed to w/c with slide board and CGA. Pt able to place/remove slide board with SBA. Reinforced to patient NWB while completing transfer, adhering this date. Exercise Seated Exercise: Primus (UBE) completed from w/c level in 5 min duration for protraction/retraction strengthening, tolerating on level 5 resistance. Pt notably fatigued with exercise, taking rest break midway throughexercise before transitioning to retraction patterns. Resistive hand gripper completed for bilateral grasp strengthening, 70# resistance, x20 reps bilaterally. Additional two sets completed with shoulder flexed to 90 degrees and in overhead positions for added shoulder strengthening. FlexBar completed for wrist/forearm strengthening for wheelchair propulsion, completes 20 reps eachof wrist flexion/extension and forearm supination with firm green resistance. Pt with noted weakness in forearm musculature, shaking with rest breaks reinforced by therapist. Downgraded to medium redresistance for pronation strengthening, shaking noted 2* weakness. Interventions Balance Training: Sitting reaching activities Skilled Intervention: Dynavision completed from w/c level to address BUE reaching/strengthening in overhead reaching, completing in 4 min duration with added 1 lb cuff weights. Pt scores total of 179targets during task. Home Living Type of Home: House Home Layout: One level, Able to live on main level with bedroom/bathroom, Ramped entrance Bathroom Shower/Tub: Tub/shower unit Bathroom Toilet: Standard Bathroom Equipment: Tub transfer bench, Hand-held shower Bathroom Accessibility: Accessible via walker Home Equipment: Wheeled Walker, Wheelchair-manual(lewler scooter, ) Additional Comments: Just recently was at [facility] for therapy Prior Level of Function Level of [place]: Independent with ADLs and functional transfers, Independent with homemaking with ambulation Lives With: Alone Receives Help From: Family ADL Assistance: Independent Homemaking Assistance: Independent Vocational: On disability Leisure: (cooking, shopping sports/electronics, target shoot, read, ) Comments: likes to build 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 Exit Protocol Followed: Yes For complete objective data, detailed plan of care and patient education refer to: OT EVALUATION flow sheet, OT TREATMENT flow sheet, patient Plan of Care, Plan of Care progress note, and Patient Education. * Maria Isabel Awad MD - 12/08/2019 8:32 AM EST 12/04/2019 Patient Name: Dyllan Huertas Admit Date: MR #: [id number] : 1960 Physicians: Rohit Aguilar MD (Family); No ref. provider found (Referring) Assessment and Plan: Impression Impression Right foot ulcer status post surgical intervention Severe Charcot deformity status post surgical intervention Enterobacter cloaca infection and gram-negative infection see cultures below RaullTela which is a gram-negative Acute osteomyelitis bone culture on 11/20/2019+ for the same pathogen that was present in January 2019is Enterobacter cloaca pansensitive RAJINDER none on chart 11/24/2019 Osteomyelitis as bone culture is positive from 11/20/2019 for Enterobacter cloaca 11/30/2019 New drainage from the pin site Elevated sed rate Elevated CRP Osteomyelitis right foot 12/01/2019 Osteomyelitis right foot Delayed healing of the plantar foot postop wound Cellulitis of the foot 12/04/2019 Status post surgical intervention with incision and drainage by Dr. Mora on 12/02/2019 cultures now with normal chalino [employer] and fungus negative 12/05/2019 Sed rate 85 CRP 85 Per rehab physician there is a risk for the left ankle issues especially with diabetic neuropathy in the left foot and he has had right foot surgery 12/06/2019 OR cultures negative elevated CRP could be just postop We will continue IV antibiotics as planned till January 01 Rocephin 2 g every 24 hours Plan 12/08/2019 Rocephin continued till January 01 Urinary retention to be evaluated by Dr. Lopez Will await for Dr. Mora to do the dressings 12/07/2019 Rocephin 2 g IV 24 hours till January 01 Discontinue Schulte catheter CBC CMP sed rate CRP on Wednesday12/06/2019 Rocephin 2 g to 24 hours till January 01 CBC CMP sed rate CRP periodically Transfer to rehab he has been accepted Will follow the patient in rehab with Dr. Lopez and Dr. Mora 12/05/2019 Rocephin 2 g IV 24 hours continue till January 01 because of the second surgery Elevated sed rate CRP will be followed Await transfer to rehab if approved and bed available 12/04/2019 Rocephin 2 g IV every 24 hours CBC CMP sed rate CRP Rehab referral with Dr. Lopez here if possible We will discuss with podiatry I have discussed with hospitalist OR cultures normal chalino negative AFB and fungus Blood cultures negative so far 12/01/2019 Continue Rocephin till further cultures available CBC CMP sed rate CRP Blood cultures x2 half an hour apart He did bleed well even in the wound clinic yesterday at some point will order arterial Dopplers I have discussed with podiatry at length 11/30/2019 Culture the pin site that is bleeding and draining Follow-up CBC Liver function test Rocephin 2 g IV every 24 hours continue till December 18 May need to go up to additional 2 weeks afterMar 17 which will be January 01 we will decide based on lab results and clinical response If the culture of the pin site shows any additional pathogens may need to readmit for additional IVantibiotics and streamlining treatment Revisit 1 week both I have discussed with podiatry Chief Complaint/Reason for Visit: I am seeing this patient at the request of Dr. Boogie Phan MD. I have reviewed the current hospital record, available laboratory, cardiology and imaging studies as well as available out patient records. History of Present Illness: Admission H&P by Boogie Phan MD on 11/30/2019: Dyllan Huertas is a 59 y.o. male presenting from home with h/o diabetes on disability since 2014 related to a Charcot foot and diabetes developed an ulcer in the beginning of 2018 was being followed by Dr. Robles at the office we have cultures from last year in January with Enterobacter and since then culture with gram-negative bacteria also was seen by Dr. Mora was found to have severe Charcot a corrective surgery was done with placement of an external fixator on 11/20. Today at wound clinic follow up was found to have increased drainage from one of the pin sites, being admitted for continued IV ATB and possible OR/ exploration in am. Exam: Tmax: 99 Urine Output: 2000 Stool: not recorded PACU Vitals 12/08/19 0200 BP: Pulse: Resp: 14 Temp: SpO2: Allergies: no known allergies. Current Facility-Administered Medications: acetaminophen (TYLENOL) tablet 650 mg, 650 mg, Oral, Q4H PRN, Helena Sheldon CNP albuterol (PROVENTIL) 2.5 mg /3 mL (0.083 %) nebulizer solution 2.5 mg, 2.5 mg, Inhalation, Q2H PRN, Helena Sheldon CNP aspirin EC tablet 162 mg, 162 mg, Oral, Daily, Helena Sheldon CNP, 162 mg at 12/07/19 0848 atorvastatin (LIPITOR) tablet 40 mg, 40 mg, Oral, Nightly, Helena Sheldon CNP, 40 mg at 12/07/19 2110 bisacodyL (DULCOLAX) suppository 10 mg, 10 mg, Rectal, Daily PRN, Helena Sheldon CNP calcium carbonate (TUMS) chewable tablet 1,000 mg, 1,000 mg, Oral, Daily, Helena Sheldon CNP, 1,000 mg at 12/07/19 0848 carvediloL (COREG) tablet 12.5 mg, 12.5 mg, Oral, BID, Helena Sheldon CNP, 12.5 mg at 110 cefTRIAXone (ROCEPHIN) IVPB 2 g (premix), 2,000 mg, Intravenous, Q24H, Helena Sheldon CNP, Last Rate: 100 mL/hr at 12/07/19 1627, 2,000 mg at 12/07/19 1627 docusate sodium (COLACE) capsule 100 mg, 100 mg, Oral, Daily, Helena Sheldon CNP, 100 mg at 12/07/19 0850 docusate sodium (COLACE) capsule 100 mg, 100 mg, Oral, BID PRN, Helena Sheldon CNP fenofibrate tablet 160 mg, 160 mg, Oral, Daily with breakfast, Helena Sheldon CNP, 160 mg at 12/07/19 0849 gabapentin (NEURONTIN) capsule 300 mg, 300 mg, Oral, Q8H LESLEY, Helena Sheldon CNP, 300 mg at 12/08/19 0505 insulin glargine (LANTUS) injection 30 Units, 30 Units, Subcutaneous, BID, Helena Sheldon CNP,30 Units at 12/07/19 2111 insulin lispro (HumaLOG) injection 0-15 Units, 0-15 Units, Subcutaneous, at bedtime, Helena Sheldon CNP, 2 Units at 12/07/192110 insulin lispro (HumaLOG) injection 0-30 Units, 0-30 Units, Subcutaneous, TID AC, Helena Sheldon CNP levothyroxine (SYNTHROID, LEVOTHROID) tablet 112 mcg, 112 mcg, Oral, Daily, Helena Sheldon CNP, 112 mcg at 12/08/19 0504 magnesium oxide (MAG-OX) tablet 400 mg, 400 mg, Oral, Daily, Helena Sheldon CNP, 400 mg at 12/07/19 0856 melatonin Tab 10 mg, 10 mg, Oral, at bedtime, Helena Sheldon CNP, 10 mg at 12/07/19 211 metFORMIN (GLUCOPHAGE) tablet 1,000 mg, 1,000 mg, Oral, BID with meals, Helena Sheldon CNP, 1,000 mg at 12/07/19 2110 naloxone (NARCAN) injection 0.1 mg, 0.1 mg, Intravenous, PRN AND Notify physician, , , Until Discontinued AND naloxone (NARCAN) injection 0.4 mg, 0.4 mg, Intravenous, PRN, Helena Sheldon CNP nitroGLYCERIN (NITROSTAT) SL tablet 0.4 mg, 0.4 mg, Sublingual, Q5 Min PRN, Helena Sheldon CNP ondansetron (ZOFRAN-ODT) disintegrating tablet 4 mg, 4 mg, Oral, Q6H PRN, Helena Sheldon CNP senna (SENOKOT) tablet 8.6 mg, 1 tablet, Oral, BID PRN, Helena Sheldon CNP sodium phosphates (FLEETS ADULT) 19-7 gram/118 mL enema 1 each, 1 each, Rectal, Daily PRN, Catarina Sheldon CNP tamsulosin (FLOMAX) 24 hr capsule 0.4 mg, 0.4 mg, Oral, After evening meal, Helena Sheldon CNP, 0.4 mg at 12/07/19 1800 traZODone (DESYREL) tablet 50 mg, 50 mg, Oral, Nightly PRN, Helena Sheldon CNP PMH/PSH/SH/FH reviewed, no change except: Status post surgical intervention by Dr. Mora on 12/02/2019 12/05/2019 Patient was seen by rehab physician rehab evaluation in progress patient's left ankle is at risk because of right foot surgery and diabetic neuropathy in the left foot also 12/07/2019 patient is now in rehab Review of Systems: All systems were reviewed and negative except: Denies any fever chills no pain in the right leg and foot 12/06/2019 denies any fever chills or diarrhea 12/08/2019 Schulte had to be reinserted for urinary increase residual Medications Reviewed. Chart Reviewed. Exam Findings: Constitutional: HENT: Pupils reactive head: No oral candidiasis Eyes: No icterus Neck: Supple Cardiovascular: Heart S1-S2 2 by systolic murmur present no S3 Murmur Pulmonary/Chest: Clear Abdominal: Soft Musculoskeletal: No calf tenderness on the right leg Neurological: Has diabetic neuropathy with Charcot is able to wiggle the toes Skin postop dressing with Kerlix no drainage noted today no foul odor Patient still has the drain in place Schulte: Bard Schulte catheter with clear urine was removed yesterday had to be reinserted this morningbecause of 1400 cc of residual patient states his PSAs were normal on several tests IV: Midline in the right arm site looks good denies any discomfort other: External fixator in place no drainage noted on the dressing wound to be examined by podiatrytoday Pin sites without any bleeding Wound External pins present fixator present Zechariah bandage present has a drain in place the drainage was less than 20 cc but not less than [address] Mora wants to remove the drain Laboratory and Additional Data Reviewed: Date: 12/08/2019 New labs/results as of last note Update from previous note Tmax: 99.2 Urine Output: 4950 Stool: not recorded Current Antibiotics: Rocephin 2 gm IV every 24 Hours until 01/02/2020 Previous Antibiotic: Ancef 2,000 mg IV every 8 Hours Pre/Post Procedure I have personally reviewed the labs and results Test results Laboratory and Additional Data Reviewed: U/A 12/08/2019 Glucose: 150 Blood: Small WBC: 7 Bacteria: Rare Labs: Vitamin D, Total 12/07/2019 04:55 16 B12/Folate 12/07/2019 04:55 B12: 828 Folate: >20.0 Ferritin 12/07/2019 04:55 211 Iron 12/07/2019 04:55 30 CMP 12/07/2019 04:55 Glucose: 243 BUN: 17 Creatinine: 0.86 Sodium: 138 Potassium: 3.9 Total Protein: 6.6 Albumin: 2.4 Alk Phos: 76 AST: 28 ALT: 40 Total Bilirubin: 0.4 CBC 12/07/2019 04:54 WBC: 6.95 Hgb: 11.3 Hct: 36.8 Platelets: 210 Lymphocytes Abs: 0.64 CRP 12/05/2019 07:58 85.3 U/A 12/07/2019 Protein: 30 Glucose: >=500 Blood: Small Leukocyte Esterase: Trace Renal Epithelial: <1 Current Cultures: 12/07/2019 Urine Aerobic Culture on arrival to Nursing Rehab Unit: No Growth, Incubation Continued.Preliminary. 12/02/2019 Right Foot Tissue Aerobic Culture: Normal Chalino After 48 Hours. Final. 12/02/2019 Right Foot Tissue AFB Culture: No Acid Fast Bacilli Seen. Preliminary. 12/02/2019 Right Foot Tissue Anaerobic Culture: No Anaerobic Growth at 2 Days. Final. 12/02/2019 Right Foot Tissue Fungus Culture: Fungal Culture in Progress. Preliminary. 12/01/2019 Blood Culture #1: No Growth After 5 Days. Final. 12/01/2019 Blood Culture #2: No Growth After 5 Days. Final. 11/30/2019 Right Foot Wound Aerobic Culture: Normal Chalino After 48 Hours. Final. 11/21/2019 Left Leg Wound Aerobic Culture: Normal Chalino After 48 Hours. Final. 11/20/2019 Right Foot Tissue Aerobic Culture: Moderate Growth Enterobacter cloacae complex, S=Youssef Sensitive. Final. 11/20/2019 Right Foot Tissue Anaerobic Culture: No Anaerobic Growth at 2 Days. Final. 11/20/2019 Right Foot Bone Aerobic Culture: Light Growth Enterobacter Cloacae Complex, S=Youssef Sensitive. Final. 11/20/2019 Right Foot Bone Anaerobic Culture: No Anaerobic Growth at 2 Days. Final. Radiology: Left Ankle X-Ray 12/07/2019 1. A new screw internally fixes the base of the 5th metatarsal to near anatomic alignment, however this screw is broken/fractured. 2. 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 Lateral subluxation of the 2nd through 5th metatarsal bases is again noted, as well as pes planus deformity. 3. Milder arthritis is noted in the tibiotalar joint and subtalar joint. 4. Large calcaneal enthesophytes are noted at the insertion sites of the plantar fascia and Achilles tendon. 5. No acute fracture, or other acute bony abnormality is seen. Date: 12/07/2019 New labs/results as of last note Update from previous note Tmax: 99.1 Urine Output: 1800 Stool: not recorded Current Antibiotics: Rocephin 2 gm IV every 24 Hours until 01/02/2020 Previous Antibiotic: Ancef 2,000 mg IV every 8 Hours Pre/Post Procedure I have personally reviewed the labs and results Test results Laboratory and Additional Data Reviewed: Labs: Vitamin D, Total 12/07/2019 04:55 16 B12/Folate 12/07/2019 04:55 B12: 828 Folate: >20.0 Ferritin 12/07/2019 04:55 211 Iron 12/07/2019 04:55 30 CMP 12/07/2019 04:55 Glucose: 243 BUN: 17 Creatinine: 0.86 Sodium: 138 Potassium: 3.9 Total Protein: 6.6 Albumin: 2.4 Alk Phos: 76 AST: 28 ALT: 40 Total Bilirubin: 0.4 CBC 12/07/2019 04:54 WBC: 6.95 Hgb: 11.3 Hct: 36.8 Platelets: 210 Lymphocytes Abs: 0.64 CRP 12/05/2019 07:58 85.3 U/A 12/07/2019 Protein: 30 Glucose: >=500 Blood: Small Leukocyte Esterase: Trace Renal Epithelial: <1 Current Cultures: 12/02/2019 Right Foot Tissue Aerobic Culture: Normal Chalino After 48 Hours. Final. 12/02/2019 Right Foot Tissue AFB Culture: No Acid Fast Bacilli Seen. Preliminary. 12/02/2019 Right Foot Tissue Anaerobic Culture: No Anaerobic Growth at 2 Days. Final. 12/02/2019 Right Foot Tissue Fungus Culture: Fungal Culture in Progress. Preliminary. 12/01/2019 Blood Culture #1: No Growth After 5 Days. Final. 12/01/2019 Blood Culture #2: No Growth After 5 Days. Final. 11/30/2019 Right Foot Wound Aerobic Culture: Normal Chalino After 48 Hours. Final. 11/21/2019 Left Leg Wound Aerobic Culture: Normal Chalino After 48 Hours. Final. 11/20/2019 Right Foot Tissue Aerobic Culture: Moderate Growth Enterobacter cloacae complex, S=Youssef Sensitive. Final. 11/20/2019 Right Foot Tissue Anaerobic Culture: No Anaerobic Growth at 2 Days. Final. 11/20/2019 Right Foot Bone Aerobic Culture: Light Growth Enterobacter Cloacae Complex, S=Youssef Sensitive. Final. 11/20/2019 Right Foot Bone Anaerobic Culture: No Anaerobic Growth at 2 Days. Final. Date: 12/06/2019 New labs/results as of last note Update from previous note Tmax: 99 Urine Output: 1250 Stool: not recorded Current Antibiotics: Rocephin 2 gm IV every 24 Hours until 01/02/2020 Previous Antibiotic: Ancef 2,000 mg IV every 8 Hours Pre/Post Procedure I have personally reviewed the labs and results Test results Laboratory and Additional Data Reviewed: Labs: CBC 12/05/2019 07:58 WBC: 7.98 Hgb: 11.4 Hct: 36.3 Platelets: 228 Lymphocytes Abs: 0.52 CMP 12/05/2019 07:58 Glucose: 223 BUN: 19 Creatinine: 0.86 Sodium: 139 Potassium: 4.1 Total Protein: 6.4 Albumin: 2.4 Alk Phos: 75 AST: 20 ALT: 31 Total Bilirubin: 0.4 CRP 12/05/2019 07:58 85.3 Current Cultures: 12/02/2019 Right Foot Tissue Aerobic Culture: Normal Chalino After 48 Hours. Final. 12/02/2019 Right Foot Tissue AFB Culture: No Acid Fast Bacilli Seen. Preliminary. 12/02/2019 Right Foot Tissue Anaerobic Culture: No Anaerobic Growth at 2 Days. Final. 12/02/2019 Right Foot Tissue Fungus Culture: Fungal Culture in Progress. Preliminary. 12/01/2019 Blood Culture #1: No Growth After 5 Days. Final. 12/01/2019 Blood Culture #2: No Growth After 5 Days. Final. 11/30/2019 Right Foot Wound Aerobic Culture: Normal Chalino After 48 Hours. Final. 11/21/2019 Left Leg Wound Aerobic Culture: Normal Chalino After 48 Hours. Final. 11/20/2019 Right Foot Tissue Aerobic Culture: Moderate Growth Enterobacter cloacae complex, S=Youssef Sensitive. Final. 11/20/2019 Right Foot Tissue Anaerobic Culture: No Anaerobic Growth at 2 Days. Final. 11/20/2019 Right Foot Bone Aerobic Culture: Light Growth Enterobacter Cloacae Complex, S=Youssef Sensitive. Final. 11/20/2019 Right Foot Bone Anaerobic Culture: No Anaerobic Growth at 2 Days. Final. Pathology: 12/02/2019 A. Soft tissue, Right Foot, excision: Non-specific ulcer. Date: 12/05/2019 New labs/results as of last note Update from previous note Tmax: 98.8 Urine Output: 2900 Stool: not recorded Current Antibiotics: Rocephin 2 gm IV every 24 Hours Previous Antibiotic: Ancef 2,000 mg IV every 8 Hours Pre/Post Procedure I have personally reviewed the labs and results Test results Laboratory and Additional Data Reviewed: Labs: CBC 12/05/2019 07:58 WBC: 7.98 Hgb: 11.4 Hct: 36.3 Platelets: 228 Lymphocytes Abs: 0.52 CMP 12/05/2019 07:58 Glucose: 223 BUN: 19 Creatinine: 0.86 Sodium: 139 Potassium: 4.1 Total Protein: 6.4 Albumin: 2.4 Alk Phos: 75 AST: 20 ALT: 31 Total Bilirubin: 0.4 CRP 12/05/2019 07:58 85.3 Current Cultures: 12/02/2019 Right Foot Tissue Aerobic Culture: Normal Chalino After 48 Hours. Final. 12/02/2019 Right Foot Tissue AFB Culture: No Acid Fast Bacilli Seen. Preliminary. 12/02/2019 Right Foot Tissue Anaerobic Culture: No Anaerobic Growth at 2 Days. Final. 12/02/2019 Right Foot Tissue Fungus Culture: Fungal Culture in Progress. Preliminary. 12/01/2019 Blood Culture #1: No Growth After 48 Hours. Preliminary. 12/01/2019 Blood Culture #2: No Growth After 48 Hours. Preliminary. 11/30/2019 Right Foot Wound Aerobic Culture: Normal Chalino After 48 Hours. Final. 11/21/2019 Left Leg Wound Aerobic Culture: Normal Chalino After 48 Hours. Final. 11/20/2019 Right Foot Tissue Aerobic Culture: Moderate Growth Enterobacter cloacae complex, S=Youssef Sensitive. Final. 11/20/2019 Right Foot Tissue Anaerobic Culture: No Anaerobic Growth at 2 Days. Final. 11/20/2019 Right Foot Bone Aerobic Culture: Light Growth Enterobacter Cloacae Complex, S=Youssef Sensitive. Final. 11/20/2019 Right Foot Bone Anaerobic Culture: No Anaerobic Growth at 2 Days. Final. Current Antibiotics: Rocephin 2 gm IV every 24 Hours Previous Antibiotic: Ancef 2,000 mg IV every 8 Hours Pre/Post Procedure I have personally reviewed the labs and results Test results Laboratory and Additional Data Reviewed: Results from last 7 days Lab Units 12/01/19 0648 11/30/19 1245 11/29/19 0655 SODIUM mmol/L 140 140 142 POTASSIUM mmol/L 5.0 4.9 5.1 CHLORIDE mmol/L 106 105 107 BUN mg/dL 22 24 36* CREATININE mg/dL 0.98 0.94 1.12 GLUCOSE mg/dL 223* 127* 108* CALCIUM mg/dL 9.1 9.3 9.3 Results from last 7 days Lab Units 12/01/19 0635 11/30/19 1245 WBC K/mcL 8.56 8.72 HGB g/dL 11.2* 10.8* HCT % 35.6* 35.4* PLT K/mcL 232 243 Results from last 7 days Lab Units 11/30/19 1245 ALK PHOS U/L 67 BILIRUBIN TOTAL mg/dL 0.3 TOTAL PROTEIN g/dL 6.5 ALTR U/L 56 AST U/L 42 Current Cultures: 12/02/2019 Right Foot Tissue Aerobic Culture: Normal Chalino After 24 Hours. Preliminary. 12/02/2019 Right Foot Tissue AFB Culture: No Acid Fast Bacilli Seen. Preliminary. 12/01/2019 Blood Culture #1: No Growth After 48 Hours. Preliminary. 12/01/2019 Blood Culture #2: No Growth After 48 Hours. Preliminary. 11/30/2019 Right Foot Wound Aerobic Culture: Normal Chalino After 48 Hours. Final. 11/21/2019 Left Leg Wound Aerobic Culture: Normal Chalino After 48 Hours. Final. 11/20/2019 Right Foot Tissue Aerobic Culture: Moderate Growth Enterobacter cloacae complex, S=Youssef Sensitive. Final. 11/20/2019 Right Foot Tissue Anaerobic Culture: No Anaerobic Growth at 2 Days. Final. 11/20/2019 Right Foot Bone Aerobic Culture: Light Growth Enterobacter Cloacae Complex, S=Youssef Sensitive. Final. 11/20/2019 Right Foot Bone Anaerobic Culture: No Anaerobic Growth at 2 Days. Final. Recent Cultures: 05/30/2019 Right Foot Tissue Aerobic Culture: Normal Chalino After 48 Hours. Final. 05/30/2019 Right Foot Tissue Anaerobic Culture: No Anaerobic Growth at 2 Days. Final. 03/23/2019 Right Foot Wound Aerobic Culture: Heavy Growth Raoultella [place], R=Ampicillin, S=Remainder of panel. 03/09/2019 Right Foot Wound Aerobic Culture: Normal Chalino After 48 Hours. Final. 02/09/2019 Right Foot Wound Aerobic Culture: Normal Chalino After 48 Hours. Final. 01/19/2019 Right Toe Two Wound Aerobic Culture: Heavy Growth Enterobacter Cloacae Complex, S=Youssef Sensitive. Final. Radiology: Right Foot X-Ray 12/02/2019 Intraoperative fluoroscopy provided. Severe bony deformity of the foot as described. Please correlate with operative note. Chest X-Ray 11/23/2019 1. Right arm PICC line in place with tip in superior vena cava. 2. No acute pulmonary disease. 3. Cardiomegaly with evidence of prior open heart surgery. 4. No acute osseous abnormality Right Foot X-Ray 11/20/2019 IMPRESSION: Intraoperative fluoroscopy for localization during right foot and ankle reconstruction and fixation. Please see operative report for details. Left Ankle X-Ray Ordered 11/20/2019 Right Foot X-Ray 11/20/2019 FINDINGS: Two views of the right foot were obtained. There are advanced changes of Charcot arthropathy throughout the right midfoot which appears similar compared to prior examination. There are postsurgical changes of resection of the right 2nd toe proximal phalangeal head. IMPRESSION: 1. Advanced changes of Charcot arthropathy throughout the right midfoot which appear unchanged compared to prior examination. Chest AP/PA X-Ray 11/16/2019 1. No acute pulmonary disease. 2. Cardiomegaly, with evidence of prior open heart surgery. 3. Multilevel degenerative changes of the thoracic spine. MR Right Foot 05/19/2019 1. There is a superficial soft tissue ulcer again seen along the plantar aspect of the midfoot, butthere is no evidence of abscess or osteomyelitis in this region. 2. Stable appearance of the sequela of severe neuropathic arthropathy of the midfoot with collapse of the midfoot again seen resulting in a rocker bottom deformity. 3. A moderate amount of diffuse subcutaneous edema along the dorsum of the foot may be due to reactive edema or a cellulitis, but this is nonspecific. Right Foot X-Ray 04/28/2019 1. Soft tissue irregularity involving the plantar aspect of the foot likely representing the reported ulcer. No bony destruction to suggest osteomyelitis. 2. No evidence of radiopaque foreign body. 3. Stable deformity and degenerative changes involving the midfoot. Findings are consistent with Charcot joint. NM White Cell Scan Spot Limited 03/08/2017 FINDINGS: A focal area of intense abnormal white blood cell migration is noted central plantar aspect of the right foot corresponding to the area of the wound demonstrated radiographically. No other focus of white blood cell migration abnormality is evident within the right or left foot. IMPRESSION: Focal area of abnormal white blood cell migration at the plantar aspect central right foot may be at the wound itself or may be involving the bone with associated fracture as demonstrated radiographically. Anatomic detail is insufficient for differentiation between the two. Renal U/S 03/07/2017 IMPRESSION: Severe thickening of the urinary bladder wall. This could be due to outlet obstruction with hypertrophy of the wall. If there is no such history, this should be evaluated with cystoscopy. CVPS: Arterial Doppler: not on file Venous Doppler: not on file 2D Echo 11/23/2019 Moderate LV enlargement with LVH. Global systolic dysfunction with segmental features. LVEF 30% Elevated LV filling pressures RV is dilated with severe RV dysfunction Mild mitral annular calcification, mild thickening of the aortic valve without hemodynamically significant valvular disease There is a atrial level right to left shunt identified with saline contrast with free breathing andValsalva most likely via PFO LVEF unchanged from to previous echo from 2017 Surgeries: Please see above for surgical history Procedure: Right Foot I&D ADJUSTMENT EXTERNAL FIXATOR Date: 12/02/2019 Surgery: Alena Mora DPM Procedure: RIGHT FOOT RECONSTRUCTION WITH APPLICATION OF CIRCULAR STATIC EXTERNAL FIXATION Date: 11/20/2019 Surgeon: Alena Mora DPM Procedure: ARTHROPLASTY 2ND TOE RIGHT FOOT Date: 01/25/2019 Surgeon: Rosa M Robles DPM Pathology: not on file * Peggy Avery, PT - 12/08/2019 8:07 AM EST PHYSICAL THERAPY Daily Progress Note Pt had shoe and AFO on left foot this morning. Pt asked about his xray. PT did not hear any update from doctor about mobility status for his left LE at this point and will follow up After treatment session. Therapy Precautions Therapy Precautions Orthotic Devices: Yes Lower Extremity: External Fixator, Right Weight Bearing Status: X RLE: Non Wt bearing LLE: Wt bearing as tolerated(no hopping or stand piviot without boot) General Rehab Precautions: Fall risk Balance Bed Mobility Bed Mobility Supine to Sit: Stand by assistance with use of HR Transfers Transfers Sit to Stand: Mod, Two person assist(with RW) Lateral Transfers: Contact guard, Min(sliding board) Skilled Intervention: Pt had good sliding board placement for transfers. Pt was very unsteady with sit to stands at RW with cues for sequencing and hand placement. Pt also needed cues to watch right LE on floor(pt was able to stand for approx 20-30 sec. ) Gait/Locomotion Gait / Locomotion Wheelchair Mobility: Stand by assistance Wheelchair distance: 150 Feet(x2) Skilled Intervention: pt needs some safety cues for foot clearance in w/c with turns. Exercise Exercises Skilled Intervention: geovanny with 45# 15 x 3. pt performed seated rows with 7 plates on cable columnb. 15 reps x 3. pt needed cues for form. Home Living Home Living Type of Home: House Home Layout: One level, Able to live on main level with bedroom/bathroom, Ramped entrance Bathroom Shower/Tub: Tub/shower unit Bathroom Accessibility: Accessible via walker Home Equipment: Wheeled Walker, Wheelchair-manual(mayco rea, ) Additional Comments: Just recently was at [facility] for therapy Prior Level of Function Prior Function Level of [place]: Independent with ADLs and functional transfers, Independent with homemaking with ambulation Lives With: Alone Receives Help From: Family ADL Assistance: Independent Homemaking Assistance: Independent Vocational: On disability Leisure: (cooking, shopping sports/electronics, target shoot, read, ) Comments: likes to build 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 Exit Protocol Followed: Yes For complete objective data, detailed plan of care and patient education refer to: PT EVALUATION flow sheet, PT TREATMENT flow sheet, patient Plan of Care, Plan of Care progress note, and Patient Education. * Helena Glass LPN - 12/08/2019 7:43 AM EST Date: 12/08/2019 New labs/results as of last note Update from previous note Tmax: 99.2 Urine Output: 4950 Stool: not recorded Current Antibiotics: Rocephin 2 gm IV every 24 Hours until 01/02/2020 Previous Antibiotic: Ancef 2,000 mg IV every 8 Hours Pre/Post Procedure I have personally reviewed the labs and results Test results Laboratory and Additional Data Reviewed: U/A 12/08/2019 Glucose: 150 Blood: Small WBC: 7 Bacteria: Rare Labs: Vitamin D, Total 12/07/2019 04:55 16 B12/Folate 12/07/2019 04:55 B12: 828 Folate: >20.0 Ferritin 12/07/2019 04:55 211 Iron 12/07/2019 04:55 30 CMP 12/07/2019 04:55 Glucose: 243 BUN: 17 Creatinine: 0.86 Sodium: 138 Potassium: 3.9 Total Protein: 6.6 Albumin: 2.4 Alk Phos: 76 AST: 28 ALT: 40 Total Bilirubin: 0.4 CBC 12/07/2019 04:54 WBC: 6.95 Hgb: 11.3 Hct: 36.8 Platelets: 210 Lymphocytes Abs: 0.64 CRP 12/05/2019 07:58 85.3 U/A 12/07/2019 Protein: 30 Glucose: >=500 Blood: Small Leukocyte Esterase: Trace Renal Epithelial: <1 Current Cultures: 12/07/2019 Urine Aerobic Culture on arrival to Nursing Rehab Unit: No Growth, Incubation Continued.Preliminary. 12/02/2019 Right Foot Tissue Aerobic Culture: Normal Chalino After 48 Hours. Final. 12/02/2019 Right Foot Tissue AFB Culture: No Acid Fast Bacilli Seen. Preliminary. 12/02/2019 Right Foot Tissue Anaerobic Culture: No Anaerobic Growth at 2 Days. Final. 12/02/2019 Right Foot Tissue Fungus Culture: Fungal Culture in Progress. Preliminary. 12/01/2019 Blood Culture #1: No Growth After 5 Days. Final. 12/01/2019 Blood Culture #2: No Growth After 5 Days. Final. 11/30/2019 Right Foot Wound Aerobic Culture: Normal Chalino After 48 Hours. Final. 11/21/2019 Left Leg Wound Aerobic Culture: Normal Chalino After 48 Hours. Final. 11/20/2019 Right Foot Tissue Aerobic Culture: Moderate Growth Enterobacter cloacae complex, S=Youssef Sensitive. Final. 11/20/2019 Right Foot Tissue Anaerobic Culture: No Anaerobic Growth at 2 Days. Final. 11/20/2019 Right Foot Bone Aerobic Culture: Light Growth Enterobacter Cloacae Complex, S=Youssef Sensitive. Final. 11/20/2019 Right Foot Bone Anaerobic Culture: No Anaerobic Growth at 2 Days. Final. Radiology: Left Ankle X-Ray 12/07/2019 1. A new screw internally fixes the base of the 5th metatarsal to near anatomic alignment, however this screw is broken/fractured. 2. 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 Lateral subluxation of the 2nd through 5th metatarsal bases is again noted, as well as pes planus deformity. 3. Milder arthritis is noted in the tibiotalar joint and subtalar joint. 4. Large calcaneal enthesophytes are noted at the insertion sites of the plantar fascia and Achilles tendon. 5. No acute fracture, or other acute bony abnormality is seen. * Sinai Lopez MD - 12/07/2019 10:40 PM EST Physical Medicine & Rehabilitation Inpatient Progress 12/07/2019 Sinai Lopez MD [facility] Nursing [facility] Patient: Dyllan Huertas Date of : 1960 (59 y.o.) PCP: Rohit Aguilar MD Date of Admission: 12/06/2019 ASSESSMENT/PLAN: Rehabilitation Diagnosis: Rehab Impairement Code (JOSE): Ortho (12/05/19699) Ortho IGC: 08.9 - Other Orthopaedic (12/05/19699) Discharge Barriers: Mobility, ADL, Self Care Impairment: Intensive PT/OT Decreased Endurance: Intensive PT/OT , patient requires AFO on left lower limb discussed with patient and PT Skin: Turn every 2 hours, monitor for skin breakdown per rehabilitation nursing Nutritional Status: Nutrition Consult Pulmonary Rehabilitation: Encourage incentives spirometry and deep breathing exercises Neurogenic Bladder: remove schulte monitor left lower limb charco ankle -obtain Xray Mixed hyperlipidemia Assessment & Plan Statin. 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 * Osteomyelitis (HCC) Assessment & Plan ID following, podiatry following. See rehab plan. Therapy Updates: evals underway Attestation: Considering all of the information above, it is my best judgment that this patient continues to require an intensive rehabilitation multidisciplinary program as previously described due to the necessity of medical management, rehabilitation needs, and complexity of nursing care under the supervision of a rehabilitation physician (patient requires at least 3 rehab physician visits per week). It can be reasonably expected that patient will participate in and benefit from a multidisciplinary team approach to maximize functional independence that is best served with acute inpatient rehabilitationas opposed to lower level of care. The teams needed are: Rehabilitation Nursing for medication management, bowel/bladder care, skin care, and respiratory care Physical Therapy for strengthening, endurance, mobility, gait and balance training, ROM, ADL's, andpatient/family training Occupational Therapy for strengthening, endurance, mobility, gait and balance training, ROM, ADL's,and patient/family training Rehabilitation Psychology for coping Therapeutic Recreation for community re-entry Social Work for integrated social support and discharge planning SUBJECTIVE: Date of Admission: 12/06/2019 Informant(s): Patient History of Present Illness: Patient reports that he used a an AFO for left lowe rlimb but he left it at [facility]. He denies any difficulty with schulte placement and would like to trial IMC. Review of Systems: All pertinent positives and negative in HPI/Interval History. All others negative. Allergies: Patient has no known allergies. Current HOSPITAL Medications: Current Facility-Administered Medications Medication Dose Route Frequency Provider Last Rate Last Dose acetaminophen (TYLENOL) tablet 650 mg 650 mg Oral Q4H PRN Helena Sheldon CNP albuterol (PROVENTIL) 2.5 mg /3 mL (0.083 %) nebulizer solution 2.5 mg 2.5 mg Inhalation Q2H PRN Helena Sheldon CNP aspirin EC tablet 162 mg 162 mg Oral Daily Helena Sheldon CNP 162 mg at 12/07/19 0848 atorvastatin (LIPITOR) tablet 40 mg 40 mg Oral Nightly Helena Sheldon CNP 40 mg at 12/07/19 2110 bisacodyL (DULCOLAX) suppository 10 mg 10 mg Rectal Daily PRN Helena Sheldon CNP calcium carbonate (TUMS) chewable tablet 1,000 mg 1,000 mg Oral Daily Helena Sheldon DE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 1,000mg at 12/07/19 0848 carvediloL (COREG) tablet 12.5 mg 12.5 mg Oral BID Helena Sheldon CNP 12.5 mg at 12/07/19 2110 cefTRIAXone (ROCEPHIN) IVPB 2 g (premix) 2,000 mg Intravenous Q24H Helena Sheldon CNP 100 mL/hr at 12/07/19 1627 2,000 mg at 12/07/19 1627 docusate sodium (COLACE) capsule 100 mg 100 mg Oral Daily Helena Sheldon CNP 100 mg at 12/07/19 0850 docusate sodium (COLACE) capsule 100 mg 100 mg Oral BID PRN Helena Sheldon CNP fenofibrate tablet 160 mg 160 mg Oral Daily with breakfast Helena Sheldon CNP 160 mg at 12/07/19 0849 gabapentin (NEURONTIN) capsule 300 mg 300 mg Oral Q8H LESLEY Helena Sheldon CNP 300 mg at 12/07/192109 insulin glargine (LANTUS) injection 30 Units 30 Units Subcutaneous BID Helena Sheldon CNP 30 Units at 12/07/192110 insulin lispro (HumaLOG) injection 0-15 Units 0-15 Units Subcutaneous at bedtime Helena Sheldon CNP 2 Units at 12/07/192110 [START ON 12/08/2019] insulin lispro (HumaLOG) injection 0-30 Units 0-30 Units Subcutaneous TID AC Helena Sheldon CNP levothyroxine (SYNTHROID, LEVOTHROID) tablet 112 mcg 112 mcg Oral Daily Helena Sheldon CNP 112mcg at 12/07/19 0550 magnesium oxide (MAG-OX) tablet 400 mg 400 mg Oral Daily Helena Sheldon CNP 400 mg at 12/07/200756 melatonin Tab 10 mg 10 mg Oral at bedtime Helena Sheldon CNP 10 mg at 12/07/192109 metFORMIN (GLUCOPHAGE) tablet 1,000 mg 1,000 mg Oral BID with meals Helena Sheldon CNP 1,000 mg at 12/07/192109 naloxone (NARCAN) injection 0.1 mg 0.1 mg Intravenous PRN Helena Sheldon CNP And naloxone (NARCAN) injection 0.4 mg 0.4 mg Intravenous PRN Helena Sheldon CNP nitroGLYCERIN (NITROSTAT) SL tablet 0.4 mg 0.4 mg Sublingual Q5 Min PRN Helena Sheldon CNP ondansetron (ZOFRAN-ODT) disintegrating tablet 4 mg 4 mg Oral Q6H PRN Helena Sheldon CNP senna (SENOKOT) tablet 8.6 mg 1 tablet Oral BID PRN Helena Sheldon CNP sodium phosphates (FLEETS ADULT) 19-7 gram/118 mL enema 1 each 1 each Rectal Daily PRN Helena Jaimes CNP tamsulosin (FLOMAX) 24 hr capsule 0.4 mg 0.4 mg Oral After evening meal Helena Sheldon CNP 0.4mg at 12/07/19 1800 traZODone (DESYREL) tablet 50 mg 50 mg Oral Nightly PRN Helena Davi Brown, DE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 OBJECTIVE: Physical Examination: BP 138/78 Pulse 80 Temp 98.9 F (37.2 C) (Oral) Resp 14 SpO2 95% GENERAL: General Appearance: In no apparent distress, well nourished HEENT: Normocephalic, atraumatic, neck supple, EOMI, PER Respiratory: On room air, no respiratory distress Cardiovascular: Peripheral pulses palpable, 2+ edema b/l Abdomen: Nontender, nondistended Musculoskeletal: left charcot ankle; s/p right ex-fix and debridement with wound closure; decreasedPROM of left ankle dorsiflexion and plantar flexion. Skin: ZECHARIAH wraps on lower limbs, right lower limb dressing in tact. Psychiatric: Normal mood and affect, appropriate insight and judgement CRANIAL NERVES: II, III: Pupils: PER III, IV, : Eye Movements: Normal (EOMI, No ptosis, No nystagmus) V - Facial Sensation: Normal VII: Face Symmetry & Strength: Normal VIII Hearing: Normal IX, X Palate:: Normal XI - Shoulder Shrug: Normal XII - Tongue Protrusion: Normal GAIT: Unable to walk due to no assistance to safely evaluate COORDINATION & GROSS MOTOR: Abnormal Movements: None Tone: Normal MOTOR - MUSCLE STRENGTH: Right Muscle Strength Left 5 Shoulder Abduction 5 5 Elbow Flexion 5 5 Elbow Extension 5 5 Wrist Extension 5 5 Finger Abduction 5 5 Hip Flexion 5 5 Knee Extension 5 EDDI Knee Flexion 5 EDDI Dorsiflexion 4 EDDI Plantar Flexion 4 MOTOR MARTINO: 5 Normal Power 4 Movement against moderate resistance over a full range of motion 3 Movement against gravity over almost full range of motion 2 Movement with gravity eliminated over almost full range of motion 1 Trace Movement (flicker of contraction visible or palpable) 0 No Movement (no contraction visible or palpable) EDDI Unable to Assess SENSATION: Light Touch: impaired Position Sense: impaired Lab Results Component Value Date ALBUMIN 2.4 (L) 12/07/2019 ALT 40 12/07/2019 AST 28 12/07/2019 BUN 17 12/07/2019 CALCIUM 9.4 12/07/2019 CL 104 12/07/2019 CHOL 115 11/27/2019 CREATININE 0.86 12/07/2019 GLUCOSE 243 (H) 12/07/2019 HDL 28 (L) 11/27/2019 HCT 36.8 (L) 12/07/2019 HGB 11.3 (L) 12/07/2019 HGBA1C 8.8 (H) 11/27/2019 MG 2.1 11/24/2019 PLT 210 12/07/2019 K 3.9 12/07/2019 NA 138 12/07/2019 TRIG 177 (H) 11/27/2019 WBC 6.95 12/07/2019 Pending Lab and Radiology Results Order Current Status Urine Aerobic Culture on arrival to Nursing Rehab unit In process XR Ankle Left 3+ Views (Standard) In process * Octavio Koch, SCRAP STRIPPER HAND - 12/07/2019 4:02 PM EST PHYSICAL THERAPY Daily Progress Note Therapy Precautions Therapy Precautions Orthotic Devices: Yes Lower Extremity: External Fixator(for right LE, has brace and boot for left LE) Weight Bearing Status: X RLE: Non Wt bearing LLE: Wt bearing as tolerated(should wear boot/brac, awaiting boot at this time,no hopping) General Rehab Precautions: Fall risk Transfers Pt performed slide board transfers with help to set-up Exercise Exercises Seated Exercises: trunk and LE therex while seated. Home Living Home Living Type of Home: House Home Layout: One level, Able to live on main level with bedroom/bathroom, Ramped entrance Bathroom Shower/Tub: Tub/shower unit Bathroom Accessibility: Accessible via walker Home Equipment: Wheeled Walker, Wheelchair-manual(mayco rea, ) Additional Comments: Just recently was at [facility] for therapy Prior Level of Function Prior Function Level of [place]: Independent with ADLs and functional transfers, Independent with homemaking with ambulation Lives With: Alone Receives Help From: Family ADL Assistance: Independent Homemaking Assistance: Independent Vocational: On disability Leisure: (cooking, shopping sports/electronics, target shoot, read, ) Comments: likes to build 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 Exit Protocol Followed: Yes For complete objective data, detailed plan of care and patient education refer to: PT EVALUATION flow sheet, PT TREATMENT flow sheet, patient Plan of Care, Plan of Care progress note, and Patient Education. * Dileep Pedraza - 12/07/2019 1:39 PM EST Attempted Sacramental Visit [facility] attempted to visit patient. Patient was unavailable. Charted on behalf of [facility]. Dileep Pedraza, PhD Inside Phone Sales Pastoral Care Department [facility] Office: [phone] 12/07/19 0900 Clinical Encounter Type Visit Type Non Crisis Non Crisis Visit Attempt;Sacrament Visited With Patient not available Visited By [facility] Process Hand Visit Length (minutes) 5 Sacramental Encounters Communion Given Indicator No * Nicholas Sanon - 12/07/2019 1:10 PM EST OCCUPATIONAL THERAPY Daily Progress Note Therapy Precautions Orthotic Devices: Yes Lower Extremity: External Fixator, Right Weight Bearing Status: X RLE: Non Wt bearing LLE: Wt bearing as tolerated(no hopping or stand piviot without boot) General Rehab Precautions: Fall risk Cognition Overall Cognitive Status: Within Functional Limits Arousal/Alertness: Appropriate responses to stimuli Orientation Level: Oriented X4 Executive functioning: WFL Safety Judgment: Decreased awareness of need for safety, Decreased awareness of need for assistance Problem Solving: Assistance required to generate solutions Attention: Attends to quiet environment Hearing Status: WFL Social Interaction: WF Exercise Primus# 181 worked on upward shoulder flexion strengthing and BUE ROM to improve activity tolerancefor ADLS. Pt seated in w/c and tolerated 2 mins of exercise at 7.2 resistance, 1 min at 6.2 resistance, and 2 mins at 5.2 resitance. Pt required no rest breaks during exercise. . Exercise ball toss worked on BUE ROM/ strengthing, overhead reaching, and activity tolerance to improve strength and endurance for i'lly in transfers. Pt while seated in w/c with supervision participated in 3x20 reps requiring two rest breaks during activity. Pt seated in w/c with SBA for thera-band exercises. Provided pt with visual and verbal demonstration. Pt requiring min verbal cues for correct form. Pt completed 10 reps of the following using red (medium resistance) band: elbow flexion/extension and shoulder flexion/extension needing one rest break during exercises. Home Living Type of Home: House Home Layout: One level, Able to live on main level with bedroom/bathroom, Ramped entrance Bathroom Shower/Tub: Tub/shower unit Bathroom Toilet: Standard Bathroom Equipment: Tub transfer bench, Hand-held shower Bathroom Accessibility: Accessible via walker Home Equipment: Wheeled Walker, Wheelchair-manual(mayco rea, ) Additional Comments: Just recently was at [facility] for therapy Prior Level of Function Level of [place]: Independent with ADLs and functional transfers, Independent with homemaking with ambulation Lives With: Alone Receives Help From: Family ADL Assistance: Independent Homemaking Assistance: Independent Vocational: On disability Leisure: (cooking, shopping sports/electronics, target shoot, read, ) Comments: likes to build 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 Exit Protocol Followed: Yes For complete objective data, detailed plan of care and patient education refer to: OT EVALUATION flow sheet, OT TREATMENT flow sheet, patient Plan of Care, Plan of Care progress note, and Patient Education. * Maria Isabel Awad MD - 12/07/2019 12:13 PM EST 12/04/2019 Patient Name: Dyllan Huertas Admit Date: MR #: [id number] : 1960 Physicians: Rohit Aguilar MD (Family); No ref. provider found (Referring) Assessment and Plan: Impression Impression Right foot ulcer status post surgical intervention Severe Charcot deformity status post surgical intervention Enterobacter cloaca infection and gram-negative infection see cultures below RaullTela which is a gram-negative Acute osteomyelitis bone culture on 11/20/2019+ for the same pathogen that was present in January 2019is Enterobacter cloaca pansensitive RAJINDER none on chart 11/24/2019 Osteomyelitis as bone culture is positive from 11/20/2019 for Enterobacter cloaca 11/30/2019 New drainage from the pin site Elevated sed rate Elevated CRP Osteomyelitis right foot 12/01/2019 Osteomyelitis right foot Delayed healing of the plantar foot postop wound Cellulitis of the foot 12/04/2019 Status post surgical intervention with incision and drainage by Dr. Mora on 12/02/2019 cultures now with normal chalino AF[employer] and fungus negative 12/05/2019 Sed rate 85 CRP 85 Per rehab physician there is a risk for the left ankle issues especially with diabetic neuropathy in the left foot and he has had right foot surgery 12/06/2019 OR cultures negative elevated CRP could be just postop We will continue IV antibiotics as planned till January 01 Rocephin 2 g every 24 hours Plan 12/07/2019 Rocephin 2 g IV 24 hours till January 01 Discontinue Schulte catheter CBC CMP sed rate CRP on Wednesday12/06/2019 Rocephin 2 g to 24 hours till January 01 CBC CMP sed rate CRP periodically Transfer to rehab he has been accepted Will follow the patient in rehab with Dr. Lopez and Dr. Mora 12/05/2019 Rocephin 2 g IV 24 hours continue till January 01 because of the second surgery Elevated sed rate CRP will be followed Await transfer to rehab if approved and bed available 12/04/2019 Rocephin 2 g IV every 24 hours CBC CMP sed rate CRP Rehab referral with Dr. Lopez here if possible We will discuss with podiatry I have discussed with hospitalist OR cultures normal chalino negative AFB and fungus Blood cultures negative so far 12/01/2019 Continue Rocephin till further cultures available CBC CMP sed rate CRP Blood cultures x2 half an hour apart He did bleed well even in the wound clinic yesterday at some point will order arterial Dopplers I have discussed with podiatry at length 11/30/2019 Culture the pin site that is bleeding and draining Follow-up CBC Liver function test Rocephin 2 g IV every 24 hours continue till December 18 May need to go up to additional 2 weeks afterMar 17 which will be January 01 we will decide based on lab results and clinical response If the culture of the pin site shows any additional pathogens may need to readmit for additional IVantibiotics and streamlining treatment Revisit 1 week both I have discussed with podiatry Chief Complaint/Reason for Visit: I am seeing this patient at the request of Dr. Boogie Phan MD. I have reviewed the current hospital record, available laboratory, cardiology and imaging studies as well as available out patient records. History of Present Illness: Admission H&P by Boogie Phan MD on 11/30/2019: Dyllan Huertas is a 59 y.o. male presenting from home with h/o diabetes on disability since 2014 related to a Charcot foot and diabetes developed an ulcer in the beginning of 2018 was being followed by Dr. Robles at the office we have cultures from last year in January with Enterobacter and since then culture with gram-negative bacteria also was seen by Dr. Mora was found to have severe Charcot a corrective surgery was done with placement of an external fixator on 11/20. Today at wound clinic follow up was found to have increased drainage from one of the pin sites, being admitted for continued IV ATB and possible OR/ exploration in am. Exam: Tmax: 99 Urine Output: 2000 Stool: not recorded PACU Vitals 12/07/19 0707 BP: (!) 142/80 Pulse: 82 Resp: 16 Temp: 99.2 F (37.3 C) SpO2: 93% Allergies: no known allergies. Current Facility-Administered Medications: acetaminophen (TYLENOL) tablet 650 mg, 650 mg, Oral, Q4H PRN, Helena Sheldon CNP albuterol (PROVENTIL) 2.5 mg /3 mL (0.083 %) nebulizer solution 2.5 mg, 2.5 mg, Inhalation, Q2H PRN, Helena Sheldon CNP aspirin EC tablet 162 mg, 162 mg, Oral, Daily, Helena Sheldon CNP, 162 mg at 12/07/19 0848 atorvastatin (LIPITOR) tablet 40 mg, 40 mg, Oral, Nightly, Helena Sheldon CNP, 40 mg at 12/06/192141 bisacodyL (DULCOLAX) suppository 10 mg, 10 mg, Rectal, Daily PRN, Helena Sheldon CNP calcium carbonate (TUMS) chewable tablet 1,000 mg, 1,000 mg, Oral, Daily, Helena Sheldon CNP, 1,000 mg at 12/07/19847 carvediloL (COREG) tablet 12.5 mg, 12.5 mg, Oral, BID, Helena Sheldon CNP, 12.5 mg at cefTRIAXone (ROCEPHIN) IVPB 2 g (premix), 2,000 mg, Intravenous, Q24H, Helena Sheldon CNP docusate sodium (COLACE) capsule 100 mg, 100 mg, Oral, Daily, Helena Sheldon CNP, 100 mg at 12/07/19 0850 docusate sodium (COLACE) capsule 100 mg, 100 mg, Oral, BID PRN, Helena Sheldon CNP fenofibrate tablet 160 mg, 160 mg, Oral, Daily with breakfast, Helena Sheldon CNP, 160 mg at 12/07/19 0849 gabapentin (NEURONTIN) capsule 300 mg, 300 mg, Oral, Q8H LESLEY, Helena Sheldon CNP, 300 mg at 12/07/19 0550 insulin glargine (LANTUS) injection 30 Units, 30 Units, Subcutaneous, BID, Helena Sheldon CNP,30 Units at 12/07/19 0851 insulin lispro (HumaLOG) injection 0-15 Units, 0-15 Units, Subcutaneous, at bedtime, Helena Sheldon CNP, 2 Units at 12/06/19 2155 insulin lispro (HumaLOG) injection 0-30 Units, 0-30 Units, Subcutaneous, TID AC, Helena Sheldon CNP, 14 Units at 12/07/19 1210 levothyroxine (SYNTHROID, LEVOTHROID) tablet 112 mcg, 112 mcg, Oral, Daily, Helena Sheldon CNP, 112 mcg at 12/07/19 0550 magnesium oxide (MAG-OX) tablet 400 mg, 400 mg, Oral, Daily, Helena Sheldon CNP, 400 mg at 12/07/19 0856 melatonin Tab 10 mg, 10 mg, Oral, at bedtime, Helena Sheldon CNP, 10 mg at 12/06/19 2141 naloxone (NARCAN) injection 0.1 mg, 0.1 mg, Intravenous, PRN AND Notify physician, , , Until Discontinued AND naloxone (NARCAN) injection 0.4 mg, 0.4 mg, Intravenous, PRN, Helena Sheldon CNP nitroGLYCERIN (NITROSTAT) SL tablet 0.4 mg, 0.4 mg, Sublingual, Q5 Min PRN, Helena Sheldon CNP ondansetron (ZOFRAN-ODT) disintegrating tablet 4 mg, 4 mg, Oral, Q6H PRN, Helena Sheldon CNP senna (SENOKOT) tablet 8.6 mg, 1 tablet, Oral, BID PRN, Helena Sheldon CNP sodium phosphates (FLEETS ADULT) 19-7 gram/118 mL enema 1 each, 1 each, Rectal, Daily PRN, Catarina Sheldon CNP tamsulosin (FLOMAX) 24 hr capsule 0.4 mg, 0.4 mg, Oral, After evening meal, Helena Sheldon CNP, 0.4 mg at 12/06/191 traZODone (DESYREL) tablet 50 mg, 50 mg, Oral, Nightly PRN, Helena Sheldon CNP PMH/PSH/SH/ reviewed, no change except: Status post surgical intervention by Dr. Mora on 12/02/2019 12/05/2019 Patient was seen by rehab physician rehab evaluation in progress patient's left ankle is at risk because of right foot surgery and diabetic neuropathy in the left foot also 12/07/2019 patient is now in rehab Review of Systems: All systems were reviewed and negative except: Denies any fever chills no pain in the right leg and foot 12/06/2019 denies any fever chills or diarrhea Medications Reviewed. Chart Reviewed. Exam Findings: Constitutional: HENT: Pupils reactive head: No oral candidiasis Eyes: No icterus Neck: Supple Cardiovascular: Heart S1-S2 2 by systolic murmur present no S3 Murmur Pulmonary/Chest: Clear Abdominal: Soft Musculoskeletal: No calf tenderness on the right leg Neurological: Has diabetic neuropathy with Charcot is able to wiggle the toes Skin postop dressing with Kerlix no drainage noted today no foul odor Schulte: Bard Schulte catheter with clear urine to be removed today IV: Midline placed in the right arm site looks good denies any discomfort other: External fixator in place no drainage noted on the dressing wound to be examined by podiatrytoday Pin sites without any bleeding Laboratory and Additional Data Reviewed: Date: 12/07/2019 New labs/results as of last note Update from previous note Tmax: 99.1 Urine Output: 1800 Stool: not recorded Current Antibiotics: Rocephin 2 gm IV every 24 Hours until 01/02/2020 Previous Antibiotic: Ancef 2,000 mg IV every 8 Hours Pre/Post Procedure I have personally reviewed the labs and results Test results Laboratory and Additional Data Reviewed: Labs: Vitamin D, Total 12/07/2019 04:55 16 B12/Folate 12/07/2019 04:55 B12: 828 Folate: >20.0 Ferritin 12/07/2019 04:55 211 Iron 12/07/2019 04:55 30 CMP 12/07/2019 04:55 Glucose: 243 BUN: 17 Creatinine: 0.86 Sodium: 138 Potassium: 3.9 Total Protein: 6.6 Albumin: 2.4 Alk Phos: 76 AST: 28 ALT: 40 Total Bilirubin: 0.4 CBC 12/07/2019 04:54 WBC: 6.95 Hgb: 11.3 Hct: 36.8 Platelets: 210 Lymphocytes Abs: 0.64 CRP 12/05/2019 07:58 85.3 U/A 12/07/2019 Protein: 30 Glucose: >=500 Blood: Small Leukocyte Esterase: Trace Renal Epithelial: <1 Current Cultures: 12/02/2019 Right Foot Tissue Aerobic Culture: Normal Chalino After 48 Hours. Final. 12/02/2019 Right Foot Tissue AFB Culture: No Acid Fast Bacilli Seen. Preliminary. 12/02/2019 Right Foot Tissue Anaerobic Culture: No Anaerobic Growth at 2 Days. Final. 12/02/2019 Right Foot Tissue Fungus Culture: Fungal Culture in Progress. Preliminary. 12/01/2019 Blood Culture #1: No Growth After 5 Days. Final. 12/01/2019 Blood Culture #2: No Growth After 5 Days. Final. 11/30/2019 Right Foot Wound Aerobic Culture: Normal Chalino After 48 Hours. Final. 11/21/2019 Left Leg Wound Aerobic Culture: Normal Chalino After 48 Hours. Final. 11/20/2019 Right Foot Tissue Aerobic Culture: Moderate Growth Enterobacter cloacae complex, S=Youssef Sensitive. Final. 11/20/2019 Right Foot Tissue Anaerobic Culture: No Anaerobic Growth at 2 Days. Final. 11/20/2019 Right Foot Bone Aerobic Culture: Light Growth Enterobacter Cloacae Complex, S=Youssef Sensitive. Final. 11/20/2019 Right Foot Bone Anaerobic Culture: No Anaerobic Growth at 2 Days. Final. Date: 12/06/2019 New labs/results as of last note Update from previous note Tmax: 99 Urine Output: 1250 Stool: not recorded Current Antibiotics: Rocephin 2 gm IV every 24 Hours until 01/02/2020 Previous Antibiotic: Ancef 2,000 mg IV every 8 Hours Pre/Post Procedure I have personally reviewed the labs and results Test results Laboratory and Additional Data Reviewed: Labs: CBC 12/05/2019 07:58 WBC: 7.98 Hgb: 11.4 Hct: 36.3 Platelets: 228 Lymphocytes Abs: 0.52 CMP 12/05/2019 07:58 Glucose: 223 BUN: 19 Creatinine: 0.86 Sodium: 139 Potassium: 4.1 Total Protein: 6.4 Albumin: 2.4 Alk Phos: 75 AST: 20 ALT: 31 Total Bilirubin: 0.4 CRP 12/05/2019 07:58 85.3 Current Cultures: 12/02/2019 Right Foot Tissue Aerobic Culture: Normal Chalino After 48 Hours. Final. 12/02/2019 Right Foot Tissue AFB Culture: No Acid Fast Bacilli Seen. Preliminary. 12/02/2019 Right Foot Tissue Anaerobic Culture: No Anaerobic Growth at 2 Days. Final. 12/02/2019 Right Foot Tissue Fungus Culture: Fungal Culture in Progress. Preliminary. 12/01/2019 Blood Culture #1: No Growth After 5 Days. Final. 12/01/2019 Blood Culture #2: No Growth After 5 Days. Final. 11/30/2019 Right Foot Wound Aerobic Culture: Normal Chalino After 48 Hours. Final. 11/21/2019 Left Leg Wound Aerobic Culture: Normal Hcalino After 48 Hours. Final. 11/20/2019 Right Foot Tissue Aerobic Culture: Moderate Growth Enterobacter cloacae complex, S=Youssef Sensitive. Final. 11/20/2019 Right Foot Tissue Anaerobic Culture: No Anaerobic Growth at 2 Days. Final. 11/20/2019 Right Foot Bone Aerobic Culture: Light Growth Enterobacter Cloacae Complex, S=Youssef Sensitive. Final. 11/20/2019 Right Foot Bone Anaerobic Culture: No Anaerobic Growth at 2 Days. Final. Pathology: 12/02/2019 A. Soft tissue, Right Foot, excision: Non-specific ulcer. Date: 12/05/2019 New labs/results as of last note Update from previous note Tmax: 98.8 Urine Output: 2900 Stool: not recorded Current Antibiotics: Rocephin 2 gm IV every 24 Hours Previous Antibiotic: Ancef 2,000 mg IV every 8 Hours Pre/Post Procedure I have personally reviewed the labs and results Test results Laboratory and Additional Data Reviewed: Labs: CBC 12/05/2019 07:58 WBC: 7.98 Hgb: 11.4 Hct: 36.3 Platelets: 228 Lymphocytes Abs: 0.52 CMP 12/05/2019 07:58 Glucose: 223 BUN: 19 Creatinine: 0.86 Sodium: 139 Potassium: 4.1 Total Protein: 6.4 Albumin: 2.4 Alk Phos: 75 AST: 20 ALT: 31 Total Bilirubin: 0.4 CRP 12/05/2019 07:58 85.3 Current Cultures: 12/02/2019 Right Foot Tissue Aerobic Culture: Normal Chalino After 48 Hours. Final. 12/02/2019 Right Foot Tissue AFB Culture: No Acid Fast Bacilli Seen. Preliminary. 12/02/2019 Right Foot Tissue Anaerobic Culture: No Anaerobic Growth at 2 Days. Final. 12/02/2019 Right Foot Tissue Fungus Culture: Fungal Culture in Progress. Preliminary. 12/01/2019 Blood Culture #1: No Growth After 48 Hours. Preliminary. 12/01/2019 Blood Culture #2: No Growth After 48 Hours. Preliminary. 11/30/2019 Right Foot Wound Aerobic Culture: Normal Chalino After 48 Hours. Final. 11/21/2019 Left Leg Wound Aerobic Culture: Normal Chalino After 48 Hours. Final. 11/20/2019 Right Foot Tissue Aerobic Culture: Moderate Growth Enterobacter cloacae complex, S=Youssef Sensitive. Final. 11/20/2019 Right Foot Tissue Anaerobic Culture: No Anaerobic Growth at 2 Days. Final. 11/20/2019 Right Foot Bone Aerobic Culture: Light Growth Enterobacter Cloacae Complex, S=Youssef Sensitive. Final. 11/20/2019 Right Foot Bone Anaerobic Culture: No Anaerobic Growth at 2 Days. Final. Current Antibiotics: Rocephin 2 gm IV every 24 Hours Previous Antibiotic: Ancef 2,000 mg IV every 8 Hours Pre/Post Procedure I have personally reviewed the labs and results Test results Laboratory and Additional Data Reviewed: Results from last 7 days Lab Units 12/01/19 0648 11/30/19 1245 11/29/19 0655 SODIUM mmol/L 140 140 142 POTASSIUM mmol/L 5.0 4.9 5.1 CHLORIDE mmol/L 106 105 107 BUN mg/dL 22 24 36* CREATININE mg/dL 0.98 0.94 1.12 GLUCOSE mg/dL 223* 127* 108* CALCIUM mg/dL 9.1 9.3 9.3 Results from last 7 days Lab Units 12/01/19 0635 11/30/19 1245 WBC K/mcL 8.56 8.72 HGB g/dL 11.2* 10.8* HCT % 35.6* 35.4* PLT K/mcL 232 243 Results from last 7 days Lab Units 11/30/19 1245 ALK PHOS U/L 67 BILIRUBIN TOTAL mg/dL 0.3 TOTAL PROTEIN g/dL 6.5 ALTR U/L 56 AST U/L 42 Current Cultures: 12/02/2019 Right Foot Tissue Aerobic Culture: Normal Chalino After 24 Hours. Preliminary. 12/02/2019 Right Foot Tissue AFB Culture: No Acid Fast Bacilli Seen. Preliminary. 12/01/2019 Blood Culture #1: No Growth After 48 Hours. Preliminary. 12/01/2019 Blood Culture #2: No Growth After 48 Hours. Preliminary. 11/30/2019 Right Foot Wound Aerobic Culture: Normal Chalino After 48 Hours. Final. 11/21/2019 Left Leg Wound Aerobic Culture: Normal Chalino After 48 Hours. Final. 11/20/2019 Right Foot Tissue Aerobic Culture: Moderate Growth Enterobacter cloacae complex, S=Youssef Sensitive. Final. 11/20/2019 Right Foot Tissue Anaerobic Culture: No Anaerobic Growth at 2 Days. Final. 11/20/2019 Right Foot Bone Aerobic Culture: Light Growth Enterobacter Cloacae Complex, S=Youssef Sensitive. Final. 11/20/2019 Right Foot Bone Anaerobic Culture: No Anaerobic Growth at 2 Days. Final. Recent Cultures: 05/30/2019 Right Foot Tissue Aerobic Culture: Normal Chalino After 48 Hours. Final. 05/30/2019 Right Foot Tissue Anaerobic Culture: No Anaerobic Growth at 2 Days. Final. 03/23/2019 Right Foot Wound Aerobic Culture: Heavy Growth Raoultella [place], R=Ampicillin, S=Remainder of panel. 03/09/2019 Right Foot Wound Aerobic Culture: Normal Chalino After 48 Hours. Final. 02/09/2019 Right Foot Wound Aerobic Culture: Normal Chalino After 48 Hours. Final. 01/19/2019 Right Toe Two Wound Aerobic Culture: Heavy Growth Enterobacter Cloacae Complex, S=Youssef Sensitive. Final. Radiology: Right Foot X-Ray 12/02/2019 Intraoperative fluoroscopy provided. Severe bony deformity of the foot as described. Please correlate with operative note. Chest X-Ray 11/23/2019 1. Right arm PICC line in place with tip in superior vena cava. 2. No acute pulmonary disease. 3. Cardiomegaly with evidence of prior open heart surgery. 4. No acute osseous abnormality Right Foot X-Ray 11/20/2019 IMPRESSION: Intraoperative fluoroscopy for localization during right foot and ankle reconstruction and fixation. Please see operative report for details. Left Ankle X-Ray Ordered 11/20/2019 Right Foot X-Ray 11/20/2019 FINDINGS: Two views of the right foot were obtained. There are advanced changes of Charcot arthropathy throughout the right midfoot which appears similar compared to prior examination. There are postsurgical changes of resection of the right 2nd toe proximal phalangeal head. IMPRESSION: 1. Advanced changes of Charcot arthropathy throughout the right midfoot which appear unchanged compared to prior examination. Chest AP/PA X-Ray 11/16/2019 1. No acute pulmonary disease. 2. Cardiomegaly, with evidence of prior open heart surgery. 3. Multilevel degenerative changes of the thoracic spine. MR Right Foot 05/19/2019 1. There is a superficial soft tissue ulcer again seen along the plantar aspect of the midfoot, butthere is no evidence of abscess or osteomyelitis in this region. 2. Stable appearance of the sequela of severe neuropathic arthropathy of the midfoot with collapse of the midfoot again seen resulting in a rocker bottom deformity. 3. A moderate amount of diffuse subcutaneous edema along the dorsum of the foot may be due to reactive edema or a cellulitis, but this is nonspecific. Right Foot X-Ray 04/28/2019 1. Soft tissue irregularity involving the plantar aspect of the foot likely representing the reported ulcer. No bony destruction to suggest osteomyelitis. 2. No evidence of radiopaque foreign body. 3. Stable deformity and degenerative changes involving the midfoot. Findings are consistent with Charcot joint. NM White Cell Scan Spot Limited 03/08/2017 FINDINGS: A focal area of intense abnormal white blood cell migration is noted central plantar aspect of the right foot corresponding to the area of the wound demonstrated radiographically. No other focus of white blood cell migration abnormality is evident within the right or left foot. IMPRESSION: Focal area of abnormal white blood cell migration at the plantar aspect central right foot may be at the wound itself or may be involving the bone with associated fracture as demonstrated radiographically. Anatomic detail is insufficient for differentiation between the two. Renal U/S 03/07/2017 IMPRESSION: Severe thickening of the urinary bladder wall. This could be due to outlet obstruction with hypertrophy of the wall. If there is no such history, this should be evaluated with cystoscopy. CVPS: Arterial Doppler: not on file Venous Doppler: not on file 2D Echo 11/23/2019 Moderate LV enlargement with LVH. Global systolic dysfunction with segmental features. LVEF 30% Elevated LV filling pressures RV is dilated with severe RV dysfunction Mild mitral annular calcification, mild thickening of the aortic valve without hemodynamically significant valvular disease There is a atrial level right to left shunt identified with saline contrast with free breathing andValsalva most likely via PFO LVEF unchanged from to previous echo from 2017 Surgeries: Please see above for surgical history Procedure: Right Foot I&D ADJUSTMENT EXTERNAL FIXATOR Date: 12/02/2019 Surgery: Alena Mora DPM Procedure: RIGHT FOOT RECONSTRUCTION WITH APPLICATION OF CIRCULAR STATIC EXTERNAL FIXATION Date: 11/20/2019 Surgeon: Alena Mora DPM Procedure: ARTHROPLASTY 2ND TOE RIGHT FOOT Date: 01/25/2019 Surgeon: Rosa M Robles DPM Pathology: not on file * Peggy Avery, PT - 12/07/2019 10:14 AM EST PHYSICAL THERAPY EVALUATION NOTE Chief Complaint/Reason for Visit: wound dehiscense Informant(s): Patient History of Present Illness: Dyllan Huerats is a 59 y.o. male with a past medical history of DM2 w/ charcot joint arthropathy recent right midfoot wedge resection with application of ex- fix (11/20/19), HLD was admitted on 11/30/2019 with osteomyelitis of right ankle. Hospital course significant for: debridement of right ankle; hyperglycemia. IV abx per ID. Patient reports that his pain is well controlled. He is concerned about wound opening again. He reports that he has numbness/tingling of lower limbs. Patient reports some constipation Problem List / Diagnosis Patient Active Problem List Diagnosis 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) Foot ulcer with fat layer exposed, right (HCC) Right foot ulcer (HCC) Morbid obesity (HCC) JAYDEN (obstructive sleep apnea) Mixed hyperlipidemia Cellulitis Subacute osteomyelitis of right ankle (HCC) Osteomyelitis (HCC) Physical Therapy Assessment History: The following factors influence the patient's participation in the PT plan of care: Personal factors: limited compliance, limited baseline mobility, decreased insight, impulsive behavior, apprehension toward mobility, education level, age, social barriers and body habitus Environmental factors: lives alone, no local family, family unavailable to assist and lack of transportation The following co-morbidities (from this admission or prior) influence the patient's participation in this plan of care: decreased strength, decreased balance, wt bearing limitations, decreased sensation Number of History elements affecting this patient's PT plan of care: 1-2 Examination of Body Systems: The patient presents with impairments of strength, ROM, functional endurance. These impairments result in limitations of gait, functional transfers, stair- climbing, safety, safety awareness, wheelchair mobility, activity tolerance and insight. These impairments result in restrictions of household mobility, community mobility and leisure activities. Number of Body Systems elements affecting this patient's PT plan of care: 3 or more Clinical Presentation: The patient's clinical presentation for this PT evaluation is stable as evidenced by current PT documentation. Therapy Precautions Orthotic Devices: Yes Lower Extremity: External Fixator, Right Weight Bearing Status: X RLE: Non Wt bearing LLE: Wt bearing as tolerated(no hopping or stand piviot without boot) General Rehab Precautions: Fall risk UE Functioning Vision Coordination Coordination Coordination: appears intact Balance GOOD seated balance POOR of 2 standing balance with RW occupational safety and health manager block: NT due to safety concerns Bed Mobility SBA for all bed mobility Supine to Sit: Stand by assistance cues for watching right LE. Use of HR Transfers Transfers Sit to Stand: Mod, Two person assist(with RW) Lateral Transfers: Contact guard, Min(sliding board) Skilled Intervention: Pt had good sliding board placement for transfers. Pt was very unsteady with sit to stands at RW with cues for sequencing and hand placement. Pt also needed cues to watch right LE on floor(pt was able to stand for approx 20-30 sec. ) Car: NT due to safety concerns Gait/Locomotion walk and stairs: NT due to wt bearing and safety concerns Wheelchair Mobility: Stand by assistance Wheelchair distance: 150 Feet(x2) on even surfaces with 2 turns. Home Living Type of Home: House Home Layout: One level, Able to live on main level with bedroom/bathroom, Ramped entrance Bathroom Shower/Tub: Tub/shower unit Bathroom Toilet: Standard Bathroom Equipment: Tub transfer bench, Hand-held shower Bathroom Accessibility: Accessible via walker Home Equipment: Wheeled Walker, Wheelchair-manual(mayco rea, ) Additional Comments: Just recently was at [facility] for therapy Prior Level of Function Level of [place]: Independent with ADLs and functional transfers, Independent with homemaking with ambulation Lives With: Alone Receives Help From: Family ADL Assistance: Independent Homemaking Assistance: Independent Vocational: On disability Leisure: (cooking, shopping sports/electronics, target shoot, read, ) Comments: likes to build models, pt stayed in w/c most of the day, walked short distances at home, but was able to walk around stores ok though Physical Therapy Goals Problem: Mobility - Impaired Goal: PT- LTG stand-pivot transfer Description: PT - Patient will perform bed mobility with WI and transfers with RW and mod assist toimprove functional mobility and safety. Outcome: Not Addressed Goal: PT- LTG sliding board transfer Description: PT - Patient will perform sliding board transfer with WI to improve functional mobility and safety. Outcome: Not Addressed Goal: PT- LTG dynamic balance Description: PT - Patient will increase standing dynamic balance to poor of 1 person to improve functional mobility and safety. Outcome: Not Addressed Goal: PT- LTG wheelchair management Description: PT - Patient will propel and manage wheelchair at least 300 ft with WI on multiple surfaces including ramps to improve functional mobility and safety. Outcome: Not Addressed Signs and symptoms of abuse / neglect: No Describe: Justification of medical necessity and intensity of service: Pt will need PT to increase strength and endurance to safely complete transfers and ambulate longerdistances. Pt also lacks sufficient balance to carry out ADLs and mobility and to be safe with ambulation and transfers to be able to return to their PLOF. Pt has decreased sitting and standing balance which puts pt at high fall risk. Pt is somewhat impulsive at times putting pt at higher fall risk and needs cues for safety. PT will also work on core strengthening to assist with trunk support andoverall activity tolerance. Pt is limited by weakness of bilateral UE and LE that interferes with independence with bed mobility, transfers, gait, and overall daily tasks. Due to ankle injury with fixation. Staff will also be monitoring vitals and skin integrity risks due to decreased mobility. Pt will need to be able to increase their activity tolerance and mobility to return to OF. Pt is expected to need at least three hours per day, at least five days a week of physical and occupational therapy and will be seen, by social service for discharge planning and coordination of family meetings and by recreational therapy for leisure needs and to increase endurance. Pt has decreased strength, balance, decreased transfers, and decreased gait abilities. They lack safety awareness into their deficits. Status is evolving requiring a moderate complexity PT eval. Handoff given to primary RN. Exit Protocol Followed: Yes Past Medical History: Diagnosis Date Coronary artery disease Diabetes mellitus, type 2 (HCC) Hyperlipidemia Hypertension Hypothyroidism Peripheral neuropathy Sleep apnea, obstructive does not use CPAP Past Surgical History: Procedure Laterality Date APPENDECTOMY ARTHROPLASTY TOE Right 01/25/2019 Procedure: ARTHROPLASTY 2ND TOE RIGHT FOOT; Surgeon: Rosa M Robles DPM; Location: [facility] [place]; Service: Podiatry CABG 2017 CARDIAC SURGERY 2017 CABG tripe bypass CLOSED REDUCTION PERCUTANEOUS PINNING LOWER EXTREMITY N/A 12/02/2019 Procedure: ADJUSTMENT of EXTERNAL FIXATOR; Surgeon: Alena Mora DPM; Location: [facility] OR; Service: Podiatry CYST REMOVED FROM CHEST N/A INCISION AND DRAINAGE FOOT AND ANKLE Right 12/02/2019 Procedure: RIGHT FOOT I&D; Surgeon: Alena Mora DPM; Location: [facility] OR; Service: Podiatry METAL IN LEFT LEFT WRIST AND LEFT 5TH TOE Left ORTHOPEDIC SURGERY RECONSTRUCTION FOOT CHARCOT Right 11/20/2019 Procedure: RIGHT FOOT RECONSTRUCTION WITH APPLICATION OF CIRCULAR STATIC EXTERNAL FIXATION; Surgeon: Alena Mora DPM; Location: [facility] OR; Service: Podiatry RT FOOT SURGERY Right [facility] N/A For complete objective data, detailed plan of care and patient education refer to: PT EVALUATION flow sheet, PT TREATMENT flow sheet, patient Plan of Care, Plan of Care progress note, and Patient Education. * Eli Hassan TERRITORY MANAGER - 12/07/2019 9:30 AM EST Recreational Therapy Assessment Patient assessment completed in [facility] area. Patient very pleasant/social. Patient requested some mind-exercise type books for the cognitive stimulation to pursue on his own; worksheets will be provided. 12/07/19 0954 Demographics Evaluation Type Physical rehab Reason for Referral to explore leisure options/resources and positive coping skills to assist pt inhis recovery Medical Diagnosis Bone infection; s/p INCISION AND DRAINAGE FOOT/ANKLE; s/p CLOSED REDUCTION PERCUTANEOUS PINNING LOWER EXTREMITY Relevant Medical History 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); Foot ulcer with fat layer exposed, right; Morbid obesity; ostructive sleep apnea; mixed hyperlipidemia (Triple Bypass in 2017) Living Situation Resides alone in a single floor home (ranch) in [place]. Has a basement. (Has a library, rec room, pool table, and wine cellar downstairs.) No pets. (Never .) Prior Functional Status Was independent prior to sx on 11-20. Drove a truck. Had been encouraged since April 2019 to limit walking in order for his foot ulcer to heal. 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 Social Emotional Status Affect pleasant Attitude cooperative Eye Contact Good Communication Appropriate;Fluent;Spontaneous Frustration Tolerance Good Identified Support sister (Mary)--lives nearby, same street) Coping Skills I really dont' have any stress. I like to read. I watch TV....have a lot of DVDs...Likes to organize DVDs. Leisure Status Previous Leisure Pursuits / Interests reading (history & alternate history), TV & movies, build models (World War II & Civil War), I love history.; going on vacations ([place]; used to go to [place] every year--adele dived); cooking Community Involvement no New Leisure Interests wants to visit [facility] [employer]; would like to learn Georgian Identified Leisure Barriers used to love walking (on the bike trail) and riding mountainbike--haven't been able to since first foot sx in 2017 when the bone was shaved Leisure Goal for Home basically what I did before I got here--read his books and build his models; using typewriter Goal / Treatment / Planning Patient's Goal for Hospitalization just gettin', having the ability when I get home to not hurt myfoot Patient's Goal for Recreational Therapy no specific goal Goals by Discharge, Patient will: Participate actively in scheduled TR tx sessions to promote increased activity tolerance.;Participate in cognitive leisure tasks to promote improved cognitive function and/or increased cognitive stimulation.;Practice familiar and new leisure activities of interest to promote positive leisure participation.;Discuss and/or practice use of leisure adaptations to promote increased leisure opportunities and independence;Participate in discussion and activities to promote increased awareness and/or practice of positive coping skills.;Participate in activities off the rehab unit in the community setting to promote community re-entry and assist pt in coping emotionally with hospitalization;Provision of leisure supplies for independent leisure pursuit in room. Treatment Individual sessions;Group sessions;Co-treatment sessions;Emotional support;Coping skills education;Leisure education;Cognitive exercise;Creative outlets;Leisure participation Frequency x1-2 per day;x3-5 days per wk Discharge Recommendations Assist with leisure planning;Assist with community leisure involvement Role of TR explained yes Rec Therapy Charges Recreational Therapy Assessment 1 Cognitive Status] Cognitive Status Comments oriented to date, place, situation Continue with TR treatment goals as stated in TR assessment. Treatment time: 0527-7267; 28 min Exit protocol followed: Yes * Helena Glass LPN - 12/07/2019 7:45 AM EST Date: 12/07/2019 New labs/results as of last note Update from previous note Tmax: 99.1 Urine Output: 1800 Stool: not recorded Current Antibiotics: Rocephin 2 gm IV every 24 Hours until 01/02/2020 Previous Antibiotic: Ancef 2,000 mg IV every 8 Hours Pre/Post Procedure I have personally reviewed the labs and results Test results Laboratory and Additional Data Reviewed: Labs: Vitamin D, Total 12/07/2019 04:55 16 B12/Folate 12/07/2019 04:55 B12: 828 Folate: >20.0 Ferritin 12/07/2019 04:55 211 Iron 12/07/2019 04:55 30 CMP 12/07/2019 04:55 Glucose: 243 BUN: 17 Creatinine: 0.86 Sodium: 138 Potassium: 3.9 Total Protein: 6.6 Albumin: 2.4 Alk Phos: 76 AST: 28 ALT: 40 Total Bilirubin: 0.4 CBC 12/07/2019 04:54 WBC: 6.95 Hgb: 11.3 Hct: 36.8 Platelets: 210 Lymphocytes Abs: 0.64 CRP 12/05/2019 07:58 85.3 U/A 12/07/2019 Protein: 30 Glucose: >=500 Blood: Small Leukocyte Esterase: Trace Renal Epithelial: <1 Current Cultures: 12/02/2019 Right Foot Tissue Aerobic Culture: Normal Chalino After 48 Hours. Final. 12/02/2019 Right Foot Tissue AFB Culture: No Acid Fast Bacilli Seen. Preliminary. 12/02/2019 Right Foot Tissue Anaerobic Culture: No Anaerobic Growth at 2 Days. Final. 12/02/2019 Right Foot Tissue Fungus Culture: Fungal Culture in Progress. Preliminary. 12/01/2019 Blood Culture #1: No Growth After 5 Days. Final. 12/01/2019 Blood Culture #2: No Growth After 5 Days. Final. 11/30/2019 Right Foot Wound Aerobic Culture: Normal Chalino After 48 Hours. Final. 11/21/2019 Left Leg Wound Aerobic Culture: Normal Chalino After 48 Hours. Final. 11/20/2019 Right Foot Tissue Aerobic Culture: Moderate Growth Enterobacter cloacae complex, S=Youssef Sensitive. Final. 11/20/2019 Right Foot Tissue Anaerobic Culture: No Anaerobic Growth at 2 Days. Final. 11/20/2019 Right Foot Bone Aerobic Culture: Light Growth Enterobacter Cloacae Complex, S=Youssef Sensitive. Final. 11/20/2019 Right Foot Bone Anaerobic Culture: No Anaerobic Growth at 2 Days. Final. * Nicholas Sanon - 12/07/2019 7:05 AM EST OCCUPATIONAL THERAPY EVALUATION NOTE Dx: Admitted 11/20/2019 for charcot reconstruction and external fixator application for RLE. D/c to [facility] and readmitted 11/30/2019 S/p irrigation and debridement with close of R plantar wound and adjustment of external fixator (12/01/2019). PMH: DM2, HTN, and HLD. Pt is NWB on RLE. Problem List / Diagnosis Patient Active Problem List Diagnosis 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) Foot ulcer with fat layer exposed, right (HCC) Right foot ulcer (HCC) Morbid obesity (HCC) JAYDEN (obstructive sleep apnea) Mixed hyperlipidemia Cellulitis Subacute osteomyelitis of right ankle (HCC) Osteomyelitis (HCC) Occupational Therapy Assessment The patient presents with musculoskeletal impairment(s) in bilateral lower extremity which create performance deficits including balance, activity tolerance and pain, insight and safety, and knowledge deficit. These performance impairments limit participation in toileting, home management, meal preparation, hobbies and functional mobility in the chosen occupational roles of family member. The patient's co morbidities do affect patient performance in the above activities and roles. The patient's home setup is a bottler and family/caregiver support is a bottler for return to prior level of function. The patient's compliance is a bottler and awareness of own capacity and performance is a bottler to return to prior level of function. During the assessment, minimal to moderate modification of task was required and several treatment options were identified in the plan of care. This consultation required expanded review of the medical and therapy history. Therapy Precautions Orthotic Devices: Yes Lower Extremity: External Fixator(for right LE, has brace and boot for left LE) Weight Bearing Status: X RLE: Non Wt bearing LLE: Wt bearing as tolerated should wear boot/brac, awaiting boot at this time,no hopping General Rehab Precautions: Fall risk UE Functioning RUE Assessment: Within Functional Limits LUE Assessment: Within Functional Limits MMT: BUE Biceps: 5/5 BUE Triceps: 5/5 LUE Shoulder flexion: 4+/5 RUE Shoulder flexion: 4+/5 LUE Shoulder extension: 4+/5 RUE Shoulder extension: 4+/5 Cognition Overall Cognitive Status: Within Functional Limits Arousal/Alertness: Appropriate responses to stimuli Orientation Level: Oriented X4 Executive functioning: WFL Safety Judgment: Decreased awareness of need for assistance, Decreased awareness of need for safety Problem Solving: Assistance required to generate solutions Attention: Attends to quiet environment Hearing Status: WFL Social Interaction: WFL Skilled interaction: Mini COG: Pt was able to recall 3/3 words, required one verbal cue furnitureto recall one word. ADL/IADL Grooming : Modified independence seated in w/c UE Bathing : SBA while seated LE Bathing : Min A while seated to dry buttocks UE Dressing: Min A while seated LE Dressing: Stand by assistance, Verbal cues while seated Footwear: Supervision/set-up: Able to L don/doff socks with figure four technique seated with supervision Toileting: CR: Max A, per pt report requires assistance for angeli hygiene and clothing management Skilled intervention: Provided min A to pull shirt over back. Set-up required to thread folley through shorts and brief. Pt able to don pants seated while weight shifting for clothing management. Edupt on weigh shifting for clothing management and drying buttocks, pt acknowledged and followed through with edu. Provided min A to dry buttocks and place/replace towel on shower bench. Bed Mobility Supine to Sit: Supervision with HOB raised Functional Transfers Sit to Stand: Min A x2 with FWW Bed to Chair Transfers: Mod x2 with FWW Toilet Transfer: CR: Mod x2 with FWW Shower Transfers: Mod A x2 with stand pivot from w/c with FWW to shower bench. Contact guard for slide board from shower bench to w/c. Skilled intervention: Edu pt on safe transfers while adhering to NWB precautions, pt acknowlegded edu and followed through for STS with FWW and stand pivot transfers with FWW and pt hopping. Pt didnot adhere to NWB precautions for slide board transfer pushing of NWB RLE. Slide board transfer performed due to being informed from pt later in session that he has braces and boot for L foot. Withholding all stand pivot tranfers until clearance from physician. Transferred to towards pts R side forthe slide board transfer providing CGA and mod verbal cues for safety. Will trial transfer to L side in future session. Home Living Type of Home: House Home Layout: One level, Able to live on main level with bedroom/bathroom, Ramped entrance Bathroom Shower/Tub: Tub/shower unit Bathroom Toilet: Standard Bathroom Equipment: Tub transfer bench, Hand-held shower Bathroom Accessibility: Accessible via walker Home Equipment: Wheeled Walker, Wheelchair-manual(mayco rea, ) Additional Comments: Just recently was at [facility] for therapy Prior Level of Function Level of [place]: Independent with ADLs and functional transfers, Independent with homemaking with ambulation Lives With: Alone Receives Help From: Family ADL Assistance: Independent Homemaking Assistance: Independent Vocational: On disability Leisure: (cooking, shopping sports/electronics, target shoot, read, ) Comments: likes to build models, pt stayed in w/c most of the day, walked short distances at home, but was able to walk around stores ok though Occupational Therapy Goals Problem: Self-care Deficit Goal: OT- STG toileting Description: OT - Patient will complete toileting with minimal assist while seated for clothing management with AD/AE if needed to improve self care function. Outcome: Not Addressed Goal: OT- LTG UB dressing Description: OT - Patient will complete UB dressing with modified independence to improve self carefunction. Outcome: Not Addressed Goal: OT- LTG LB dressing Description: OT - Patient will complete LB dressing with modified independence while seated to improve self care function. Outcome: Not Addressed Goal: OT- LTG toileting Description: OT - Patient will complete toileting with supervision while seated for clothing management with AD/AE if needed to improve self care function. Outcome: Not Addressed Goal: OT- LTG meal preparation Description: OT - Patient will complete simple meal preparation from w/c level with modified independence including item retreival using AE while adhering to NWB precautions of RLE to improve self care function. Outcome: Not Addressed Goal: OT- LTG precautions Description: OT - Patient will demonstrate NWB of RLE precaution management independently to improve safe and appropriate ADL/IADL management. Outcome: Not Addressed Goal: OT- LTG Self-Care Other Description: OT- Patient will participate in caregiver/family training as needed to enhance a safe return to home environment by time of discharge, including education on fall prevention, HEP, and adaptive equipment needs/DME. Outcome: Not Addressed Problem: Mobility - Impaired Goal: OT- STG toilet transfer Description: OT - Patient will complete toilet transfer with slide board to BSC with contact guard assist if needed in preparation for ADL's. Outcome: Not Addressed Goal: OT- LTG toilet transfer Description: OT - Patient will complete toilet transfer with slide board to BSC with modified independence needed in preparation for ADL's. Outcome: Not Addressed Goal: OT- LTG Tub Transfer Description: OT - Patient will complete tub transfer with simulation of home set up with no device and extended tub bench with minimal assit in preparation for ADL's. Outcome: Not Addressed Problem: Impaired Strength Goal: OT- LTG Strength Other Description: OT- Patient will tolerate 15- 20 minutes of BUE strengthening, demonstrating independence with HEP by time of discharge, in order to improve strength necessary for functional transfers in preparation for ADLs Outcome: Not Addressed Problem: Impaired Neurologic Function Goal: OT- LTG static standing balance Description: OT - Patient will complete static standing balance activity for 5 mins while adhering to precautions with AD with contact guard assit in preparation for ADL's. Problem: Mobility - Impaired Goal: OT- LTG Mobility Other Description: OT- Patient will complete stand pivot transfer with AD while adhering to NWB precautions of RLE with contact guard assist to improve independence for ADLs. Outcome: Not Addressed Justification of Medical Necessity and Intensity of Service: Pt would benefit from skilled OT services in this inpatient rehabilitation facility with a multidisciplinary team approach to address the above-listed deficits/education needs in order to maximize independence with ADLs/IADLs upon discharge home. Pt wants to return home with family assist and has good potential for success in this environment to increase independence, safety, and quality of life after participating in intense OT. Signs and symptoms of abuse / neglect: No Describe: Past Medical History: Diagnosis Date Coronary artery disease Diabetes mellitus, type 2 (HCC) Hyperlipidemia Hypertension Hypothyroidism Peripheral neuropathy Sleep apnea, obstructive does not use CPAP Past Surgical History: Procedure Laterality Date APPENDECTOMY ARTHROPLASTY TOE Right 01/25/2019 Procedure: ARTHROPLASTY 2ND TOE RIGHT FOOT; Surgeon: Rosa M Robles DPM; Location: [facility] [place] OR; Service: Podiatry CABG 2017 CARDIAC SURGERY 2017 CABG tripe bypass CLOSED REDUCTION PERCUTANEOUS PINNING LOWER EXTREMITY N/A 12/02/2019 Procedure: ADJUSTMENT of EXTERNAL FIXATOR; Surgeon: Alena Mora DPM; Location: [facility] OR; Service: Podiatry CYST REMOVED FROM CHEST N/A INCISION AND DRAINAGE FOOT AND ANKLE Right 12/02/2019 Procedure: RIGHT FOOT I&D; Surgeon: Alena Mora DPM; Location: [facility] OR; Service: Podiatry METAL IN LEFT LEFT WRIST AND LEFT 5TH TOE Left ORTHOPEDIC SURGERY RECONSTRUCTION FOOT CHARCOT Right 11/20/2019 Procedure: RIGHT FOOT RECONSTRUCTION WITH APPLICATION OF CIRCULAR STATIC EXTERNAL FIXATION; Surgeon: Alena Mora DPM; Location: [facility] OR; Service: Podiatry RT FOOT SURGERY Right SHARMILA JEONG N/A Handoff given to primary RN. Exit Protocol Followed: Yes For complete objective data, detailed plan of care and patient education refer to: OT EVALUATION flow sheet, OT TREATMENT flow sheet, patient Plan of Care, Plan of Care progress note, and Patient Education. * Najma Colindres RN - 12/05/2019 9:22 AM EST Inpatient Rehabilitation Pre-Admission Screen Patient Name:Dyllan Huertas Date of : 1960 Patient Location: Room/bed info not found Gender:male Age: 59 y.o. Today's date: 12/06/19 Admitted:(Not on file) Preferred Language: Setswana Race: [1] Industrial Relations Officer needed: No Address: [address] [place] [address] Demographics Pre Hospital Living Setting: Home Pre-Hospital Lives With: Alone(Had been in SNF after first surgery. ) Pre-Hospital Vocation Category: Retired for Disability Support System Family/Caregiver Contact Information Family/Caregiver Contact: Mary Bolden Contact Relationship: Relative Contact Phone: [phone] Support Support System: Relatives(He feels like his sister can assist.) Type of Support Available: lives alone Limitations in Support Available from Caregivers: No 24 hour assistance Patient/Family Rehab Goal: To go home Single [facility] Referral/Payer Payor/Plan Subscriber Name Rel Member # Group # [employer] MANAGED [employer]* DYLLAN HUERTAS* [facility] [id number] [address] [id number] Referral Date of Referral: 12/01/19 Referring Source Information: [facility] Referral Source: [facility] Referring Facility Admit Date: 11/30/19 Contact Name: Bhakti Referring Facility Contact's Number: [phone] Referring Physician: Alena Mora Additional Referral Notes: Needs pre-auth with [employer] Current Status Current Status Rehab Impairement Code (JOSE): Ortho Ortho IGC: 08.9 - Other Orthopaedic Primary Dx (ICD): M86.271, E11.610, L97.512, A49.8, L03.115 Hx Present Illness: We have a 59 y.o. male with a hx of diabetes from a SNF post Charcot correctivesurgery. Patient was found to have increased drainage, swelling and bleeding from pin site and was admitted for IV antibiotics. Concerns for need of possible surgery. Hospital course: Peripheral neuropathy- high risk of falls Podiatry consult- 1 week status post right midfoot wedge resection and application of external fixator for Charcot reconstruction (Date of surgery 11/20/2019 -Dr. Mora). Partial dehiscence, right plantar foot 12/02/19: Surgical irrigation and debridement of right foot plantar incision site and adjustment of external fixator frame.Operative findings: Central dehiscence to plantar incision site right foot. No purulence. Fibrosis and residual sutures noted. Pin irritation and drainage from the distal lateral forefoot pin. Pin was removed. External fixator was adjusted according after a new pin was drilled. Uncontrolled blood sugars. Trend 108-256. HgbA1c:8.8 Abnormal Labs: BUN: 49-19 Creatinine: 0.86-1.64 Hgb: 8.8-11.4 Hct: 32.9-36.3 Elevated BP's: 162/82 11/24/2019 Osteomyelitis as bone culture is positive from 11/20/2019 for Enterobacter cloaca 11/30/2019 New drainage from the pin site, Elevated sed rate, Elevated CRP Osteomyelitis right foot, Cellulitis of the foot 12/04/2019 Blood cultures negative Wound cultures negative He presents with impairments in self-care, transfers (NWB RLE), gait, balance, bowel and bladder. He is at risk for falls, wound dehiscence, poor healing and amputation, infection. Home Living Type of Home: Facility(from [facility]) previously was home. Home Layout: One level Bathroom Shower/Tub: Walk-in shower(at [facility], tubshower with shower bench at home) Bathroom Toilet: Standard Bathroom Accessibility: Accessible via walker(accessible with w/c at [facility]) Home Equipment: Wheeled Walker, Wheelchair-manual(knee scooter) Additional Comments: Pt lives at home alone in 1 level home with ramp, but most recently from [facility] after D/C from hospital last week. Prior Level of Function Level of [place]: Independent with ADLs and functional transfers, Independent with homemaking with ambulation Lives With: Alone Receives Help From: Family ADL Assistance: Independent Homemaking Assistance: Independent Vocational: On disability Comments: Ind at [facility] with no AD. Most recently transferring with therapy at [facility] in/out of W/C. Independent with homemaking and in community prior to ankle infection. Patient has been evaluated by PT, OT, with recommendation for IPR level of therapy. He is expected to benefit from and be able to tolerate a 3 hour per day, minimum 5 day per week, intensive, multidisciplinary, rehab program. He requires PT, OT, rehab nursing for bowel and bladder, skin, safety, wound care, and frequent visits from a physician to manage, abnormal labs, active co morbidities, wound, medication adjustment. He has a discharge plan of home, with intermittent assistance. He is willing to participate in the program. Past Medical History: Diagnosis Date Coronary artery disease Diabetes mellitus, type 2 (HCC) Hyperlipidemia Hypertension Hypothyroidism Peripheral neuropathy Sleep apnea, obstructive does not use CPAP Past Surgical History: Procedure Laterality Date APPENDECTOMY ARTHROPLASTY TOE Right 01/25/2019 Procedure: ARTHROPLASTY 2ND TOE RIGHT FOOT; Surgeon: Rosa M Robles DPM; Location: [facility] [place] [facility] OR; Service: Podiatry CABG 2017 CARDIAC SURGERY 2017 CABG tripe bypass CLOSED REDUCTION PERCUTANEOUS PINNING LOWER EXTREMITY N/A 12/02/2019 Procedure: ADJUSTMENT of EXTERNAL FIXATOR; Surgeon: Alena Mora DPM; Location: [facility] OR; Service: Podiatry CYST REMOVED FROM CHEST N/A INCISION AND DRAINAGE FOOT AND ANKLE Right 12/02/2019 Procedure: RIGHT FOOT I&D; Surgeon: Alena Mora DPM; Location: [facility] OR; Service: Podiatry METAL IN LEFT LEFT WRIST AND LEFT 5TH TOE Left ORTHOPEDIC SURGERY RECONSTRUCTION FOOT CHARCOT Right 11/20/2019 Procedure: RIGHT FOOT RECONSTRUCTION WITH APPLICATION OF CIRCULAR STATIC EXTERNAL FIXATION; Surgeon: Alena Mora DPM; Location: [facility] OR; Service: Podiatry RT FOOT SURGERY Right SHARMILA JEONG N/A Medications: acetaminophen (TYLENOL) tablet 650 mg 650 mg Oral Q4H PRN albuterol (PROVENTIL) 2.5 mg /3 mL (0.083 %) nebulizer solution 2.5 mg 2.5 mg Inhalation Q2H PRN aspirin EC tablet 162 mg 162 mg Oral Daily atorvastatin (LIPITOR) tablet 40 mg 40 mg Oral Nightly calcium carbonate (TUMS) chewable tablet 1,000 mg 1,000 mg Oral Daily carvediloL (COREG) tablet 12.5 mg 12.5 mg Oral BID cefTRIAXone (ROCEPHIN) IVPB 2 g (premix) 2,000 mg Intravenous Q24H docusate sodium (COLACE) capsule 100 mg 100 mg Oral Daily fenofibrate tablet 160 mg 160 mg Oral Daily with breakfast gabapentin (NEURONTIN) capsule 300 mg 300 mg Oral Q8H LESLEY insulin glargine (LANTUS) injection 30 Units 30 Units Subcutaneous BID insulin lispro (HumaLOG) injection 0-15 Units 0-15 Units Subcutaneous at bedtime insulin lispro (HumaLOG) injection 0-30 Units 0-30 Units Subcutaneous TID AC levothyroxine (SYNTHROID, LEVOTHROID) tablet 112 mcg 112 mcg Oral Daily magnesium oxide (MAG-OX) tablet 400 mg 400 mg Oral Daily melatonin Tab 10 mg 10 mg Oral at bedtime nitroGLYCERIN (NITROSTAT) SL tablet 0.4 mg 0.4 mg Sublingual Q5 Min PRN ondansetron (ZOFRAN-ODT) disintegrating tablet 4 mg 4 mg Oral Q6H PRN pneumococcal vaccine (PNU-IMMUNE 23) injection 0.5 mL 0.5 mL Intramuscular Prior To Discharge tamsulosin (FLOMAX) 24 hr capsule 0.4 mg 0.4 mg Oral After evening meal traZODone (DESYREL) tablet 50 mg 50 mg Oral Nightly PRN There is no immunization history for the selected administration types on file for this patient. Required Medicare Questions Major surgery during 100 days prior to adm: Yes 2 or more falls in past year w/wo injury: Unknown Vitals Date Measured: 12/05/19 Height: 5' 11 Weight: 128 kg (282 lb 3 oz) Blood Pressure: 126/70 Temperature: 98.5 Pulse: 82 Respirations: 16 O2 Sat: 96 Food and Nutrition Current Diet: Regular Liquid Specific Limitations: Thin Liquids Infection Current Infection: Yes Other/Site: Right ankle IV Antibiotics: Rocephin Antibiotics Start Date: 11/30/19 Current Acute Care Therapy Therapy: Physical, Occupational, Wound Care, Speech Review of Systems No Known Allergies Review of Systems Vision: Negative Hearing: Negative Cardiovascular: Negative Pulmonary: Lungs documented as clear bilaterally Gastrointestional: Negative Genitourinary: Schulte Musculoskeletal: RLE limited movement Integumentary: Wound Psychosocial: Negative Renal Function: WDL Endocrine: Diabetes, Hypothyroid, Hyperlipidemia Precautions: Falls Isolation Precautions: None Bariatric Needs: None Dialysis: None Oxygen: None Special Equipment: None Weight Bearing Status: RLE non-weightbearing Neuro Cognitive: Alert Motor: Follows 1 or 2 Step Directions Verbal: Appropriate Labs Blood Work/Labs Lab Results Component Value Date ALBUMIN 2.4 (L) 12/05/2019 ALT 31 12/05/2019 AST 20 12/05/2019 BUN 19 12/05/2019 CALCIUM 9.1 12/05/2019 CL 104 12/05/2019 CHOL 115 11/27/2019 CREATININE 0.86 12/05/2019 GLUCOSE 223 (H) 12/05/2019 HDL 28 (L) 11/27/2019 HCT 36.3 (L) 12/05/2019 HGB 11.4 (L) 12/05/2019 HGBA1C 8.8 (H) 11/27/2019 MG 2.1 11/24/2019 PLT 228 12/05/2019 K 4.1 12/05/2019 NA 139 12/05/2019 TRIG 177 (H) 11/27/2019 WBC 7.98 12/05/2019 Recent MRI & CT Studies: No orders to display Radiology Results (last 7 days) No results found for the last 168 hours. Functional Assessment Bladder Continence Pre-Hospital Bladder Continence: Continent Device(s) used: Schulte catheter Schulte Catheter Inserted: 11/21/19 Bowel Continence Date of Last BM: 12/05/19 Pre-Hospital Bowel Continence: Continent Current Bowel Continence: Continent Bowel Medication: Yes Medication Type: Colace Prior Functioning Everyday Activities Self Care: 3 - Independent Indoor Mobility (Ambulation): 3 - Independent Stairs: 3 - Independent Functional Cognition: 3 - Independent Prior Device Use Manual W/C: Yes(After surgery) Motorized W/C or Scooter: No Mechanical Lift: No Walker: No Orthotics/Prosthetics: No Functional Issues Balance: (sit balance good, stand balance poor) Strength: weakness RLE Non-FIM Functional Assessment Eating Pre-Morb: Independent Now: Independent Goal: Independent Grooming/Hygiene Pre-Morb: Independent Now: Mod Indeoendent Goal: Independent Upper Ext Dressing Pre-Morb: Independent Now: Mod Indeoendent Goal: Independent Lower Ext Dressing Pre-Morb: Independent Now: Max Assist Goal: Independent Bladder Management Pre-Morb: Independent Now: Max Assist Goal: Independent Bowel Management Pre-Morb: Independent Now: Max Assist Goal: Independent Bed Mobility Pre-Morb: Independent Now: Independent Goal: Independent Supine-Sit Pre-Morb: Independent Now: Min Assist/Contact Guard Goal: Independent Sit-Stand Pre-Morb: Independent Now: Max Assist Goal: Independent Transfer Pre-Morb: Independent Now: Max Assist Goal: Independent Toilet Transfer Pre-Morb: Independent Now: Max Assist Goal: Independent Ambulation Pre-Morb: Independent Now: Max Assist Goal: Independent Expression Pre-Morb: Independent Now: Independent Goal: Independent Memory Pre-Morb: Independent Now: Independent Goal: Independent Completed Therapy Evaluations Therapy: PT, OT, BEHAVIOUR SUPPORT TEACHER Admission Justification Date/Time: 12/06/19 9:49 AM Hair Spinner: Najma Earl Screening Method: In person and Through a review of the [facility] Screening Recommendations: 1. Rehabilitation Admission: Yes 2. Therapy assessment projects patient able to tolerate relatively intense therapy: Yes 3. Rehabilitation Prognosis: good 4. Patient is willing to participate in an intensive rehabilitation program: Yes Anticipated Discharge Setting: Home Anticipated Post-Discharge Treatments: follow-up with surgery, PCP, infectious disease, home healthcare vs outpatient Najma Colindres Physician Admission Justification Patient demonstrates potential for significant practical improvement and there is a reasonable expectation for measurable improvement of functional capacity or adaptation to impairments as demonstrated by: Sufficiently Stable: Yes Patient's condition is sufficiently stable at the time of admission to allow the patient to actively participate in an intensive rehabilitation program. Intensive Rehabilitation Nursing: The patient demonstrates the need for 24-hour rehabilitation nursing care for active management of the following medical and functional deficits: ADLs, Bladder Mgmt., Bowel Mgmt., Diabetes Mgmt., Disease Mgmt., Family Training/Edu., Medications Admin., Nutritional Deficits, Pain Mgmt., Patient Education, Positioning, Respiratory / Airway Mgmt., Safety, Skin Integrity, Nutri., Transfers and Wound Care Appropriate Therapy Needs: The patient requires the active and ongoing therapeutic intervention of at least two therapy disciplines (physical therapy, occupational therapy, speech- language pathology, or prosthetics/orthotics therapy), one of which must be physical or occupational therapy. Requires 2 or more therapies: PT and OT Intensive Therapy: Yes Patient requires and is reasonably expected to actively participate in at least 3 hours of therapy per day at least 5 days per week, and be expected to make measurable improvement that will be of practical value to improve the patient's functional capacity or adaptation to impairments. In addition,therapy treatments will begin within 36 hours from midnight of the day of the patient's admission to the IRF. Expected duration and frequency of therapy: 180 minutes/day, 5 days/week Interdisciplinary Team: Patient demonstrated the need for an interdisciplinary team for active management of the following medical and functional deficits: Balance, Disease Management, Elimination, Endurance, Family Training/Education, Independent ADLs, Modified Indep Fx/Mobility, Pain Management, Precautions, ROM, Safety, Skin Care / Wound Mgmt., Strength and Transfers Associated attestation - John, Sinai Garvin MD - 12/06/2019 10:54 AM EST Rehabilitation Disposition: Accepted / Anticipated Admission Date: 12/06/2019 Estimated Length of Stay: 16 (days) Close Medical Supervision: Yes A rehabilitation physician, or other licensed treating physician with specialized training and experience in inpatient rehabilitation, will conduct [id number] visits with the patient a minimum of at least 3 days per week throughout the patient's stay. The purpose of this is to assess the patient both medically and functionally, as well as to modify the course of treatment as needed to maximize the patient's capacity to benefit from the rehabilitation process. This patient requires close medical supervision for the active management of the ongoing conditionsand potential complications stated here: Patient requires medical monitoring of left charco joint and close monitoring by podiatry will require at least 3 physician visits per week. Physician Signature: I have reviewed this pre-admission screening document and concur with the findings. I believe the patient meets criteria, is sufficiently stable to allow participation in the program, and requires anintensive level of therapy, close medical supervision, and an interdisciplinary team approach provided through an individualized plan of care. I approve admitting this patient for an intensive, inpatient rehabilitation hospital program. Sinai Lopez documented in this encounter* Alena Mora DPM - 12/21/2019 9:02 AM EDT Subjective: Patient is a pleasant 59-year-old male who presents to the wound care center for his 1 month follow-up evaluation status post right midfoot wedge resection and application of external fixator for Charcot reconstruction (date of surgery 11/20/2019). Patient states that he has been doing well. He was recently discharged home from the rehab facility and continues to receive IV antibiotics via his PICC line, which is managed by Dr. Awad. Patient states that he has been nonweightbearing as instructed to the right lower extremity. He states that the nursing staff has been changing his dressing once every other day as instructed. No new pedal complaints.Denies fevers, chills, nausea, vomiting, [address] pain, shortness of breath, or any other constitutional symptoms. Objective: Vascular: DP and PT pulses are palpable 2/4. Cap refill time is brisk to distal digits. Skin temperature is warm to warm from proximal tibial tuberosity to distal digits. +1 pitting edema noted to the right foot. Neuro: Gross sensation is intact. Protective sensation is absent. Dermatologic: The right foot plantar surgical incision site is well coapted with sutures intact. A small pocket within the medial aspect of the incision site with noted drainage. This was swab cultured today. In addition, there is serosanguineous drainage noted from the lateral right foot pin. Remaining pin sites are intact with no surrounding erythema, edema, drainage. The external patient device is intact. No loosening of pins or wires noted. Small hemorrhagic blisters noted to the distal tuft of the right great toe secondary to pressure from the Zechariah bandage. Musculoskeletal: Patient is able to wiggle digits. Compartments are soft and compressible. No calf pain. Assessment: 1 month status post right midfoot wedge resection and application of external fixator for Charcot reconstruction (Date of surgery 11/20/2019 -Dr. Mora). Charcot arthropathy, midfoot, right foot Diabetes with peripheral neuropathy Hemorrhagic blister, right great toe Plan: Patient was seen and evaluated. Discussed all clinical findings. Patient is doing well overall. A swab culture was obtained from the right foot plantar incision drainage site Discussed with patient removing the lateral dorsal right foot pin that continues to drain. See procedure below. Procedure: Consent was obtained prior to performing a superficial hardware removal, right foot The dorsal lateral stainless steel pin and surrounding soft tissue were cleansed with Betadine. A large sterile plier was then utilized to remove the pin without any trauma to the surrounding soft tissue. Patient tolerated the procedure well without any pain complaints. No anesthesia was needed secondary to neuropathy. Hemostasis was achieved with compression. The open pin site was then dressed with 4 x 4's gauze and Kerlix. Of note, no x-rays were obtained today secondary to [place] [id number] Radiology protocol. Following the procedure, All pins were cleansed with alcohol and Betadine was applied to all pins at the skin interface. The pins sites were then dressed with 4 x 4 gauze. A 6 inch Zechariah bandage was then applied around the external fixator construct. Care was taken to noted the superficial hemorrhagic blister at the distal aspect of the right greattoe. Applied Betadine to that site. Applied kb to the open site at the medial aspect of the incision site. Patient is to keep nonweightbearing to the right lower extremity at all times. He is to keep everything clean and dry. Nurses are to clean wires every other day with alcohol and to apply Betadine at the pain/skin interface. Kb to be applied to the open seroma site at the medial incision site All questions were answered to satisfaction. Patient is to return to clinic in 1 week for follow-up evaluation Alena Mora DPM documented in this encounter* Nelda Gilliam RN - 12/21/2019 8:10 AM EDT Multiple pin sites dry. The pin at the anterior right foot has small amt serosanquinous drainage onthe old dressing. LPapst RN woundcare * Phoebe Duncan RN - 12/21/2019 8:00 AM EDT Date: 12/21/2019 No new labs/ results as of last note: 12/18/2019 Update from previous note Current Antibiotics: Merrem 1,000 mg IV every 12 Hours until January 02, 2020 ([facility]) Previous Antibiotic: Rocephin 2 gm IV every 24 Hours Ancef 2,000 mg IV every 8 Hours Pre/Post Procedure Dressings: Per Dr. Mora Current Cultures: 12/10/2019 Right Foot Wound Aerobic Culture: Normal Chalino After 48 Hours. Final 12/10/2019 Right foot wound, anaerobic culture: No anaerobic growth at 2 days. Final 12/08/2019 Urine Aerobic Culture: No Growth (<1,000 CFU/mL). Final. 12/07/2019 Urine Aerobic Culture on arrival to Nursing Rehab Unit: No Growth (<1,000 CFU/mL). Final. 12/02/2019 Right Foot Tissue Aerobic Culture: Normal Chalino After 48 Hours. Final. 12/02/2019 Right Foot Tissue AFB Culture: No Acid Fast Bacilli Seen. Preliminary. 12/02/2019 Right Foot Tissue Anaerobic Culture: No Anaerobic Growth at 2 Days. Final. 12/02/2019 Right Foot Tissue Fungus Culture: Fungal Culture in Progress. Preliminary. 12/01/2019 Blood Culture #1: No Growth After 5 Days. Final. 12/01/2019 Blood Culture #2: No Growth After 5 Days. Final. 11/30/2019 Right Foot Wound Aerobic Culture: Normal Chalino After 48 Hours. Final. 11/21/2019 Left Leg Wound Aerobic Culture: Normal Chalino After 48 Hours. Final. 11/20/2019 Right Foot Tissue Aerobic Culture: Moderate Growth Enterobacter cloacae complex, S=Youssef Sensitive. Final. 11/20/2019 Right Foot Tissue Anaerobic Culture: No Anaerobic Growth at 2 Days. Final. 11/20/2019 Right Foot Bone Aerobic Culture: Light Growth Enterobacter Cloacae Complex, S=Youssef Sensitive. Final. 11/20/2019 Right Foot Bone Anaerobic Culture: No Anaerobic Growth at 2 Days. Final * Maria Isabel Awad MD - 12/21/2019 7:54 AM EDT 12/04/2019 Patient Name: Dyllan Huertas Admit Date: MR #: [id number] : 1960 Physicians: Rohit Aguilar MD (Family); No ref. provider found (Referring) Assessment and Plan: Impression Impression Right foot ulcer status post surgical intervention Severe Charcot deformity status post surgical intervention Enterobacter cloaca infection and gram-negative infection see cultures below RaullTela which is a gram-negative Acute osteomyelitis bone culture on 11/20/2019+ for the same pathogen that was present in January 2019is Enterobacter cloaca pansensitive RAJINDER none on chart 11/24/2019 Osteomyelitis as bone culture is positive from 11/20/2019 for Enterobacter cloaca 11/30/2019 New drainage from the pin site Elevated sed rate Elevated CRP Osteomyelitis right foot 12/01/2019 Osteomyelitis right foot Delayed healing of the plantar foot postop wound Cellulitis of the foot 12/04/2019 Status post surgical intervention with incision and drainage by Dr. Mora on 12/02/2019 cultures now with normal chalino AFB and fungus negative 12/05/2019 Sed rate 85 CRP 85 Per rehab physician there is a risk for the left ankle issues especially with diabetic neuropathy in the left foot and he has had right foot surgery 12/06/2019 OR cultures negative elevated CRP could be just postop We will continue IV antibiotics as planned till January 01 Rocephin 2 g every 24 hours 12/11/2019 Right foot wound with some maceration drainage 12/12/2019 CRP improving 12/21/2019 Patient is home now last night he was having difficulty flushing the line PICC line not functioning well because the picc team Plantar foot wound no cellulitis no maceration pin sites look excellent Plan 12/21/2019 IV meropenem 1 g twice daily till January 01 Picc team to evaluate the PICC line consider another midline if needed Revisit 3 weeks for me 12/18/2019 OPAT referral IV meropenem 1 g every 12 till January 01 Home IV antibiotic by [facility] Any dressing orders would be per Dr. Mora CBC CMP sed rate CRP every Wednesday12/14/2019 and 12/15/2019 Continue IV meropenem till January 01 if he can manage to do that Await a picture by podiatry upon dressing change today I have discussed with podiatry Will plan for CBC CMP sed rate CRP next week 12/12/2019 Patient tolerating the meropenem Will await Dr. Mora to check the dressing on the wound at her next rounds Discontinue Rocephin Start meropenem 1 g IV every 12 for the Enterobacter and the other gram-negative that he had seen in the cultures especially with the extensive surgery that was done and he had some drainage on the weekend Continue IV antibiotics till January 01 CBC CMP sed rate CRP Will discuss with Dr. Lopez and Dr. Mora 12/08/2019 Rocephin continued till January 01 Urinary retention to be evaluated by Dr. Lopez Will await for Dr. Mora to do the dressings 12/07/2019 Rocephin 2 g IV 24 hours till January 01 Discontinue Schulte catheter CBC CMP sed rate CRP on Wednesday12/06/2019 Rocephin 2 g to 24 hours till January 01 CBC CMP sed rate CRP periodically Transfer to rehab he has been accepted Will follow the patient in rehab with Dr. Lopez and Dr. Mora 12/05/2019 Rocephin 2 g IV 24 hours continue till January 01 because of the second surgery Elevated sed rate CRP will be followed Await transfer to rehab if approved and bed available 12/04/2019 Rocephin 2 g IV every 24 hours CBC CMP sed rate CRP Rehab referral with Dr. Lopez here if possible We will discuss with podiatry I have discussed with hospitalist OR cultures normal chalino negative AFB and fungus Blood cultures negative so far 12/01/2019 Continue Rocephin till further cultures available CBC CMP sed rate CRP Blood cultures x2 half an hour apart He did bleed well even in the wound clinic yesterday at some point will order arterial Dopplers I have discussed with podiatry at length 11/30/2019 Culture the pin site that is bleeding and draining Follow-up CBC Liver function test Rocephin 2 g IV every 24 hours continue till December 18 May need to go up to additional 2 weeks afterMarch 17 which will be January 01 we will decide based on lab results and clinical response If the culture of the pin site shows any additional pathogens may need to readmit for additional IVantibiotics and streamlining treatment Revisit 1 week both I have discussed with podiatry Chief Complaint/Reason for Visit: I am seeing this patient at the request of Dr. Boogie Phan MD. I have reviewed the current hospital record, available laboratory, cardiology and imaging studies as well as available out patient records. History of Present Illness: Admission H&P by Boogie Phan MD on 11/30/2019: Dyllan Huertas is a 59 y.o. male presenting from home with h/o diabetes on disability since 2014 related to a Charcot foot and diabetes developed an ulcer in the beginning of 2019 was being followed by Dr. Robles at the office we have cultures from last year in January with Enterobacter and since then culture with gram-negative bacteria also was seen by Dr. Mora was found to have severe Charcot a corrective surgery was done with placement of an external fixator on 11/20. Today at wound clinic follow up was found to have increased drainage from one of the pin sites, being admitted for continued IV ATB and possible OR/ exploration in am. Exam: Tmax: 99 Urine Output: 2000 Stool: not recorded PACU Vitals 12/21/19 0751 BP: 124/76 Pulse: 79 Resp: 16 Temp: 97.4 F (36.3 C) SpO2: 96% Allergies: no known allergies. Current Outpatient Medications: alteplase (CATH AMANDO) 2 mg injection, Instill 2mL into clotted IV line as needed for brake liner. May repeat as needed. Do not use on Peripheral or Midlines ., Disp: 2 mL, Rfl: 52 aspirin 81 MG EC tablet, Take 2 (two) tablets (162 mg total) by mouth daily Start: 11/25/19., Disp:60 tablet, Rfl: 0 calcium carbonate 400 mg Chew, Chew and Swallow 1,000 mg daily ., Disp: , Rfl: carvediloL (COREG) 12.5 MG tablet, Take 1 (one) tablet (12.5 mg total) by mouth 2 (two) times a day., Disp: 60 tablet, Rfl: 0 docusate sodium (COLACE) 100 MG capsule, Take 100 mg by mouth daily ., Disp: , Rfl: FENOFIBRATE MICRONIZED ORAL, Take 160 mg by mouth daily ., Disp: , Rfl: finasteride (PROSCAR) 5 mg tablet, Take 2.5 mg by mouth every night at bedtime Wednesday,WED,WED ., Disp: , Rfl: gabapentin (NEURONTIN) 300 MG capsule, gabapentin GABAPENTIN 300 MG CAPS One tablet by mouth daily GABAPENTIN [id number] Sebastián Dailey MD 06-15-2017 [facility] ([id number]), Disp: , Rfl: heparin, porcine, PF, 100 unit/mL Syrg, For Open Ended Midline/PICC/CVC/Port: Flush with 5ml heparin as final flush after each use, weekly if not used. Use 3ml for Peripheral IV ., Disp: 100 Syringe,Rfl: 52 insulin NPH (HumuLIN,NovoLIN) 100 unit/mL injection, Take 30 units with breakfast, and 26 units at bedtime ., Disp: 20 mL, Rfl: 12 insulin regular (HumuLIN R, NovoLIN R) 100 unit/mL injection, Take 12 units three times daily before meals ., Disp: 20 mL, Rfl: 5 levothyroxine (SYNTHROID, LEVOTHROID) 112 MCG tablet, once daily ., Disp: , Rfl: magnesium oxide (MAG-OX) 400 mg (241.3 mg magnesium) tablet, Take 400 mg by mouth daily ., Disp: , Rfl: melatonin 5 mg Tab, Take 10 mg by mouth daily ., Disp: , Rfl: meropenem (MERREM) 1 gram/50 mL, Infuse 50 mL (1,000 mg total) into a venous catheter every 12 (twelve) hours ., Disp: 60 each, Rfl: 0 meropenem 1,000 mg IV (Outpatient Therapy), Infuse 1,000 (one thousand) mg into a venous catheter every 12 (twelve) hours End: 01/02/20, Disp: 28 vial, Rfl: 0 metFORMIN (GLUCOPHAGE-XR) 500 MG 24 hr tablet, 1,000 mg 2 (two) times a day ., Disp: , Rfl: multivitamin (THERAGRAN) per tablet, Take 1 tablet by mouth daily ., Disp: , Rfl: nitroGLYCERIN (NITROSTAT) 0.4 MG SL tablet, Place 1 (one) tablet (0.4 mg total) under the tongue every 5 (five) minutes as needed for chest pain , if no relief after 3 doses call 911 ., Disp: 90 tablet, Rfl: 12 psyllium (METAMUCIL) 3.4 gram packet, Take 1 (one) packet by mouth daily Start: 12/20/19., Disp: 30packet, Rfl: 0 rosuvastatin (CRESTOR) 20 MG tablet, 20 mg daily ., Disp: , Rfl: sodium chloride, PF, (NS) injection, Midline/PICC/CVC/Port: Flush with 10ml pre/post use, weekly ifnot used, 20ml after lab draw/TPN. Use 5ml for Peripheral IV pre/post use ., Disp: 100 mL, Rfl: 52 tamsulosin (FLOMAX) 0.4 mg capsule, tamsulosin TAMSULOSIN HCL 0.4 MG CAPS One tablet by mouth [id number] TAMSULOSIN HCL [id number] Sebastián Dailey MD 06-15-2017 [facility] ([id number]), Disp: , Rfl: PMH/PSH/SH/FH reviewed, no change except: Status post surgical intervention by Dr. Mora on 12/02/2019 12/05/2019 Patient was seen by rehab physician rehab evaluation in progress patient's left ankle is at risk because of right foot surgery and diabetic neuropathy in the left foot also 12/07/2019 patient is now in rehab Review of Systems: All systems were reviewed and negative except: Denies any fever chills no pain in the right leg and foot 12/06/2019 denies any fever chills or diarrhea 12/08/2019 Schulte had to be reinserted for urinary increase residual 12/11/2019 Dressing was changed by Dr. Mora on Wednesday there was some drainage culture was done there was some maceration culture result is normal chalino Dr. Mora's note was reviewed by mo Medications Reviewed. Chart Reviewed. BP 124/76 Pulse 79 Temp 97.4 F (36.3 C) Resp 16 SpO2 96% Exam Findings: Constitutional: HENT: Pupils reactive head: No oral candidiasis Eyes: No icterus Neck: Supple Cardiovascular: Heart S1-S2 2 by systolic murmur present no S3 Murmur Pulmonary/Chest: Clear Abdominal: Soft Musculoskeletal: No calf tenderness on the right leg Neurological: Has diabetic neuropathy with Charcot is able to wiggle the toes Skin no redness or cellulitis noted on the plantar foot area Schulte: Bard Schulte catheter with clear urine is being clamped now IV: Midline in the right arm site looks good denies any discomfort was not able to flush with the PICC line is come to be evaluated by the peak team may be removed and placed on other: External fixator in place no drainage noted on the dressing wound to be examined by podiatrytoday Pin sites without any bleeding The plantar foot wound looks excellent no cellulitis noted pin sites with no drainage Zechariah bandage in place with no drainage Wound (Outpatient Only) 03/31/19 Foot Anterior;Right;Plantar (Active) Wound Image 12/21/2019 8:00 AM Wound Length (cm) 11.5 cm 12/21/2019 8:00 AM Wound Width (cm) 0 cm 12/21/2019 8:00 AM Wound Depth (cm) 0 cm 12/21/2019 8:00 AM Wound Surface Area (cm^2) 0 cm^2 12/21/2019 8:00 AM Wound Volume (cm^3) 0 cm^3 12/21/2019 8:00 AM Area % Change 0 12/21/2019 8:00 AM Volume % Change 0 12/21/2019 8:00 AM Tunneling Maximum Distance (cm) 0 cm 12/21/2019 8:00 AM Tunneling Position (o'clock) 0 12/21/2019 8:00 AM Undermining Maximum Distance (cm) 1 0 cm 12/21/2019 8:00 AM Undermining Starting Position (o'clock) 1 0 12/21/2019 8:00 AM Undermining Ending Position (o'clock) 1 0 12/21/2019 8:00 AM Wound Encounter Subsequent 12/21/2019 8:00 AM Wound Progress Improving 12/21/2019 8:00 AM Drainage Amount None 12/21/2019 8:00 AM Odor None 12/21/2019 8:00 AM Wound Margin Attached to wound base 12/21/2019 8:00 AM Adherent Yellow Slough % None 12/21/2019 8:00 AM Moist Yellow Slough % None 12/21/2019 8:00 AM Dry Black Eschar % None 12/21/2019 8:00 AM Moist Black Eschar % None 12/21/2019 8:00 AM Epithelialization % 76-100% 12/21/2019 8:00 AM Granulation % None 12/21/2019 8:00 AM Exposed Structure None 12/21/2019 8:00 AM Wound Bed Characteristics Clean;Dry;Intact;Approximated 12/21/2019 8:00 AM Wound Closure Sutures 12/21/2019 8:00 AM Angeli-wound Assessment Temperature WNL;Edema 12/21/2019 8:00 AM Hemostasis Not applicable 12/21/2019 8:00 AM Cleansed Soap and water 12/21/2019 8:00 AM Wound 11/20/19 Surgical Wound Leg Right (Active) Wound 12/02/19 Surgical Wound Lower Leg Right (Active) Wound 12/14/19 Pressure Injury Great Toe;Toe Anterior;Right (Active) Wound Image 12/21/2019 8:00 AM Wound Length (cm) 1.5 cm 12/21/2019 8:00 AM Wound Width (cm) 1.2 cm 12/21/2019 8:00 AM Wound Depth (cm) 0 cm 12/21/2019 8:00 AM Wound Surface Area (cm^2) 1.8 cm^2 12/21/2019 8:00 AM Wound Volume (cm^3) 0 cm^3 12/21/2019 8:00 AM Area % Change 0 12/21/2019 8:00 AM Tunneling Maximum Distance (cm) 0 cm 12/21/2019 8:00 AM Tunneling Position (o'clock) 0 12/21/2019 8:00 AM Tunneling Maximum Distance (cm) 0 cm 12/21/2019 8:00 AM Tunneling Position (o'clock) 0 12/21/2019 8:00 AM Undermining Maximum Distance (cm) 1 0 cm 12/21/2019 8:00 AM Undermining Starting Position (o'clock) 1 0 12/21/2019 8:00 AM Undermining Ending Position (o'clock) 1 0 12/21/2019 8:00 AM Undermining Maximum Distance (cm) 2 0 cm 12/21/2019 8:00 AM Undermining Starting Position (o'clock) 2 0 12/21/2019 8:00 AM Undermining Ending Position (o'clock) 2 0 12/21/2019 8:00 AM Wound Progress Initial exam 12/21/2019 8:00 AM Drainage Amount None 12/21/2019 8:00 AM Odor None 12/21/2019 8:00 AM Wound Margin Attached to wound base 12/21/2019 8:00 AM Adherent Yellow Slough % None 12/21/2019 8:00 AM Moist Yellow Slough % None 12/21/2019 8:00 AM Dry Black Eschar % None 12/21/2019 8:00 AM Moist Black Eschar % None 12/21/2019 8:00 AM Granulation % None 12/21/2019 8:00 AM Exposed Structure None 12/21/2019 8:00 AM Wound Bed Characteristics Clean;Dry;Intact 12/21/2019 8:00 AM Angeli-wound Assessment Temperature WNL;Intact 12/21/2019 8:00 AM Treatments Not Applicable 12/21/2019 8:00 AM Hemostasis Not applicable 12/21/2019 8:00 AM Cleansed Soap and water 12/21/2019 8:00 AM Wound 12/14/19 Pressure Injury Calf Right (Active) Laboratory and Additional Data Reviewed: Date: 12/21/2019 No new labs/ results as of last note: 12/18/2019 Update from previous note Current Antibiotics: Merrem 1,000 mg IV every 12 Hours until January 02, 2020 ([facility]) Previous Antibiotic: Rocephin 2 gm IV every 24 Hours Ancef 2,000 mg IV every 8 Hours Pre/Post Procedure Dressings: Per Dr. Mora Current Cultures: 12/10/2019 Right Foot Wound Aerobic Culture: Normal Chalino After 48 Hours. Final 12/10/2019 Right foot wound, anaerobic culture: No anaerobic growth at 2 days. Final 12/08/2019 Urine Aerobic Culture: No Growth (<1,000 CFU/mL). Final. 12/07/2019 Urine Aerobic Culture on arrival to Nursing Rehab Unit: No Growth (<1,000 CFU/mL). Final. 12/02/2019 Right Foot Tissue Aerobic Culture: Normal Chalino After 48 Hours. Final. 12/02/2019 Right Foot Tissue AFB Culture: No Acid Fast Bacilli Seen. Preliminary. 12/02/2019 Right Foot Tissue Anaerobic Culture: No Anaerobic Growth at 2 Days. Final. 12/02/2019 Right Foot Tissue Fungus Culture: Fungal Culture in Progress. Preliminary. 12/01/2019 Blood Culture #1: No Growth After 5 Days. Final. 12/01/2019 Blood Culture #2: No Growth After 5 Days. Final. 11/30/2019 Right Foot Wound Aerobic Culture: Normal Chalino After 48 Hours. Final. 11/21/2019 Left Leg Wound Aerobic Culture: Normal Chalino After 48 Hours. Final. 11/20/2019 Right Foot Tissue Aerobic Culture: Moderate Growth Enterobacter cloacae complex, S=Youssef Sensitive. Final. 11/20/2019 Right Foot Tissue Anaerobic Culture: No Anaerobic Growth at 2 Days. Final. 11/20/2019 Right Foot Bone Aerobic Culture: Light Growth Enterobacter Cloacae Complex, S=Youssef Sensitive. Final. 11/20/2019 Right Foot Bone Anaerobic Culture: No Anaerobic Growth at 2 Days. Final Date: 12/19/2019 No new labs/results as of last note Update from previous note Tmax: 98.5 Urine Output: 2400 Stool: X1 Current Antibiotics: Merrem 1,000 mg IV every 12 Hours until January 02, 2020 Previous Antibiotic: Rocephin 2 gm IV every 24 Hours Ancef 2,000 mg IV every 8 Hours Pre/Post Procedure Dressings: Per Dr. Mora I have personally reviewed the labs and results Test results Laboratory and Additional Data Reviewed: Labs to de drawn every Wednesday (CBC, CMP, Sed Rate, CRP) Current Cultures: 12/10/2019 Right Foot Wound Aerobic Culture: Normal Chalino After 48 Hours. Final 12/10/2019 Right foot wound, anaerobic culture: No anaerobic growth at 2 days. Final 12/08/2019 Urine Aerobic Culture: No Growth (<1,000 CFU/mL). Final. 12/07/2019 Urine Aerobic Culture on arrival to Nursing Rehab Unit: No Growth (<1,000 CFU/mL). Final. 12/02/2019 Right Foot Tissue Aerobic Culture: Normal Chalino After 48 Hours. Final. 12/02/2019 Right Foot Tissue AFB Culture: No Acid Fast Bacilli Seen. Preliminary. 12/02/2019 Right Foot Tissue Anaerobic Culture: No Anaerobic Growth at 2 Days. Final. 12/02/2019 Right Foot Tissue Fungus Culture: Fungal Culture in Progress. Preliminary. 12/01/2019 Blood Culture #1: No Growth After 5 Days. Final. 12/01/2019 Blood Culture #2: No Growth After 5 Days. Final. 11/30/2019 Right Foot Wound Aerobic Culture: Normal Chalino After 48 Hours. Final. 11/21/2019 Left Leg Wound Aerobic Culture: Normal Chalino After 48 Hours. Final. 11/20/2019 Right Foot Tissue Aerobic Culture: Moderate Growth Enterobacter cloacae complex, S=Youssef Sensitive. Final. 11/20/2019 Right Foot Tissue Anaerobic Culture: No Anaerobic Growth at 2 Days. Final. 11/20/2019 Right Foot Bone Aerobic Culture: Light Growth Enterobacter Cloacae Complex, S=Youssef Sensitive. Final. 11/20/2019 Right Foot Bone Anaerobic Culture: No Anaerobic Growth at 2 Days. Final Date: 12/18/2019 No new labs/results as of last note Update from previous note Tmax: 98.1 Urine Output: 3950 Stool: not recorded Current Antibiotics: Merrem 1,000 mg IV every 12 Hours Previous Antibiotic: Rocephin 2 gm IV every 24 Hours Ancef 2,000 mg IV every 8 Hours Pre/Post Procedure I have personally reviewed the labs and results Test results Laboratory and Additional Data Reviewed: Current Cultures: 12/10/2019 Right Foot Wound Aerobic Culture: Normal Chalino After 48 Hours. Final 12/10/2019 Right foot wound, anaerobic culture: No anaerobic growth at 2 days. Final 12/08/2019 Urine Aerobic Culture: No Growth (<1,000 CFU/mL). Final. 12/07/2019 Urine Aerobic Culture on arrival to Nursing Rehab Unit: No Growth (<1,000 CFU/mL). Final. 12/02/2019 Right Foot Tissue Aerobic Culture: Normal Chalino After 48 Hours. Final. 12/02/2019 Right Foot Tissue AFB Culture: No Acid Fast Bacilli Seen. Preliminary. 12/02/2019 Right Foot Tissue Anaerobic Culture: No Anaerobic Growth at 2 Days. Final. 12/02/2019 Right Foot Tissue Fungus Culture: Fungal Culture in Progress. Preliminary. 12/01/2019 Blood Culture #1: No Growth After 5 Days. Final. 12/01/2019 Blood Culture #2: No Growth After 5 Days. Final. 11/30/2019 Right Foot Wound Aerobic Culture: Normal [place] After 48 Hours. Final. 11/21/2019 Left Leg Wound Aerobic Culture: Normal [place] After 48 Hours. Final. 11/20/2019 Right Foot Tissue Aerobic Culture: Moderate Growth Enterobacter cloacae complex, S=Youssef Sensitive. Final. 11/20/2019 Right Foot Tissue Anaerobic Culture: No Anaerobic Growth at 2 Days. Final. 11/20/2019 Right Foot Bone Aerobic Culture: Light Growth Enterobacter Cloacae Complex, S=Youssef Sensitive. Final. 11/20/2019 Right Foot Bone Anaerobic Culture: No Anaerobic Growth at 2 Days. Final Date: 12/15/2019 New labs/results as of last note Update from previous note Tmax: 98.7 Urine Output: 1900 Stool: not recorded Current Antibiotics: Merrem 1,000 mg IV every 12 Hours Previous Antibiotic: Rocephin 2 gm IV every 24 Hours Ancef 2,000 mg IV every 8 Hours Pre/Post Procedure I have personally reviewed the labs and results Test results Laboratory and Additional Data Reviewed: Current Cultures: 12/10/2019 Right Foot Wound Aerobic Culture: Normal Chal[place] After 48 Hours. Final 12/10/2019 Right foot wound, anaerobic culture: No anaerobic growth at 2 days. Final 12/08/2019 Urine Aerobic Culture: No Growth (<1,000 CFU/mL). Final. 12/07/2019 Urine Aerobic Culture on arrival to Nursing Rehab Unit: No Growth (<1,000 CFU/mL). Final. 12/02/2019 Right Foot Tissue Aerobic Culture: Normal [place] After 48 Hours. Final. 12/02/2019 Right Foot Tissue AFB Culture: No Acid Fast Bacilli Seen. Preliminary. 12/02/2019 Right Foot Tissue Anaerobic Culture: No Anaerobic Growth at 2 Days. Final. 12/02/2019 Right Foot Tissue Fungus Culture: Fungal Culture in Progress. Preliminary. 12/01/2019 Blood Culture #1: No Growth After 5 Days. Final. 12/01/2019 Blood Culture #2: No Growth After 5 Days. Final. 11/30/2019 Right Foot Wound Aerobic Culture: Normal [place] After 48 Hours. Final. 11/21/2019 Left Leg Wound Aerobic Culture: Normal [place] After 48 Hours. Final. 11/20/2019 Right Foot Tissue Aerobic Culture: Moderate Growth Enterobacter cloacae complex, S=Youssef Sensitive. Final. 11/20/2019 Right Foot Tissue Anaerobic Culture: No Anaerobic Growth at 2 Days. Final. 11/20/2019 Right Foot Bone Aerobic Culture: Light Growth Enterobacter Cloacae Complex, S=Youssef Sensitive. Final. 11/20/2019 Right Foot Bone Anaerobic Culture: No Anaerobic Growth at 2 Days. Final Date: 12/14/2019 New labs/ results as of last note: 12/12/2019 T-Max: 98.6 Output: Urine 2150 ml Stool not recorded Current Antibiotics: Merrem 1,000 mg IV every 12 Hours Previous Antibiotic: Rocephin 2 gm IV every 24 Hours Ancef 2,000 mg IV every 8 Hours Pre/Post Procedure I have personally reviewed the labs and results Test results Laboratory and Additional Data Reviewed: Current Cultures: 12/10/2019 Right Foot Wound Aerobic Culture: Normal [place] After 48 Hours. Final 12/10/2019 Right foot wound, anaerobic culture: No anaerobic growth at 2 days. Final 12/08/2019 Urine Aerobic Culture: No Growth (<1,000 CFU/mL). Final. 12/07/2019 Urine Aerobic Culture on arrival to Nursing Rehab Unit: No Growth (<1,000 CFU/mL). Final. 12/02/2019 Right Foot Tissue Aerobic Culture: Normal [place] After 48 Hours. Final. 12/02/2019 Right Foot Tissue AFB Culture: No Acid Fast Bacilli Seen. Preliminary. 12/02/2019 Right Foot Tissue Anaerobic Culture: No Anaerobic Growth at 2 Days. Final. 12/02/2019 Right Foot Tissue Fungus Culture: Fungal Culture in Progress. Preliminary. 12/01/2019 Blood Culture #1: No Growth After 5 Days. Final. 12/01/2019 Blood Culture #2: No Growth After 5 Days. Final. 11/30/2019 Right Foot Wound Aerobic Culture: Normal [place] After 48 Hours. Final. 11/21/2019 Left Leg Wound Aerobic Culture: Normal [place] After 48 Hours. Final. 11/20/2019 Right Foot Tissue Aerobic Culture: Moderate Growth Enterobacter cloacae complex, S=Youssef Sensitive. Final. 11/20/2019 Right Foot Tissue Anaerobic Culture: No Anaerobic Growth at 2 Days. Final. 11/20/2019 Right Foot Bone Aerobic Culture: Light Growth Enterobacter Cloacae Complex, S=Youssef Sensitive. Final. 11/20/2019 Right Foot Bone Anaerobic Culture: No Anaerobic Growth at 2 Days. Final Update from previous note Date: 12/12/2019 New labs/results as of last note Update from previous note Tmax: 99.2 Urine Output: 1600 Stool: not recorded Current Antibiotics: Merrem 1,000 mg IV every 12 Hours Previous Antibiotic: Rocephin 2 gm IV every 24 Hours Ancef 2,000 mg IV every 8 Hours Pre/Post Procedure I have personally reviewed the labs and results Test results Laboratory and Additional Data Reviewed: Labs: CMP 12/12/2019 06:11 Glucose: 167 BUN: 26 Creatinine: 0.89 Sodium: 140 Potassium: 4.3 Total Protein: 6.7 Albumin: 2.5 Alk Phos: 83 AST: 35 ALT: 52 Total Bilirubin: 0.3 CBC 12/12/2019 06:11 WBC: 4.12 RBC: 4.13 Hgb: 10.8 Hct: 35.6 Platelets: 203 Lymphocytes Abs: 0.66 CRP 12/12/2019 06:11 52.4 Current Cultures: 12/10/2019 Right Foot Wound Aerobic Culture: Normal [place] After 24 Hours. Preliminary. 12/08/2019 Urine Aerobic Culture: No Growth (<1,000 CFU/mL). Final. 12/07/2019 Urine Aerobic Culture on arrival to Nursing Rehab Unit: No Growth (<1,000 CFU/mL). Final. 12/02/2019 Right Foot Tissue Aerobic Culture: Normal [place] After 48 Hours. Final. 12/02/2019 Right Foot Tissue AFB Culture: No Acid Fast Bacilli Seen. Preliminary. 12/02/2019 Right Foot Tissue Anaerobic Culture: No Anaerobic Growth at 2 Days. Final. 12/02/2019 Right Foot Tissue Fungus Culture: Fungal Culture in Progress. Preliminary. 12/01/2019 Blood Culture #1: No Growth After 5 Days. Final. 12/01/2019 Blood Culture #2: No Growth After 5 Days. Final. 11/30/2019 Right Foot Wound Aerobic Culture: Normal [place] After 48 Hours. Final. 11/21/2019 Left Leg Wound Aerobic Culture: Normal [place] After 48 Hours. Final. 11/20/2019 Right Foot Tissue Aerobic Culture: Moderate Growth Enterobacter cloacae complex, S=Youssef Sensitive. Final. 11/20/2019 Right Foot Tissue Anaerobic Culture: No Anaerobic Growth at 2 Days. Final. 11/20/2019 Right Foot Bone Aerobic Culture: Light Growth Enterobacter Cloacae Complex, S=Youssef Sensitive. Final. 11/20/2019 Right Foot Bone Anaerobic Culture: No Anaerobic Growth at 2 Days. Final. Date: 12/11/2019 New labs/results as of last note Update from previous note Tmax: 98.7 Urine Output: 2500 Stool: X1 Current Antibiotics: Rocephin 2 gm IV every 24 Hours until 01/02/2020 Previous Antibiotic: Ancef 2,000 mg IV every 8 Hours Pre/Post Procedure I have personally reviewed the labs and results Test results Laboratory and Additional Data Reviewed: U/A 12/08/2019 Glucose: 150 Blood: Small WBC: 7 Bacteria: Rare Labs: Vitamin D, Total 12/07/2019 04:55 16 B12/Folate 12/07/2019 04:55 B12: 828 Folate: >20.0 Ferritin 12/07/2019 04:55 211 Iron 12/07/2019 04:55 30 CMP 12/07/2019 04:55 Glucose: 243 BUN: 17 Creatinine: 0.86 Sodium: 138 Potassium: 3.9 Total Protein: 6.6 Albumin: 2.4 Alk Phos: 76 AST: 28 ALT: 40 Total Bilirubin: 0.4 CBC 12/07/2019 04:54 WBC: 6.95 Hgb: 11.3 Hct: 36.8 Platelets: 210 Lymphocytes Abs: 0.64 CRP 12/05/2019 07:58 85.3 U/A 12/07/2019 Protein: 30 Glucose: >=500 Blood: Small Leukocyte Esterase: Trace Renal Epithelial: <1 Current Cultures: 12/10/2019 Right Foot Wound Aerobic Culture: Rare WBC. Rare Epithelial Cells. No Organisms Seen. Preliminary. 12/08/2019 Urine Aerobic Culture: No Growth (<1,000 CFU/mL). Final. 12/07/2019 Urine Aerobic Culture on arrival to Nursing Rehab Unit: No Growth (<1,000 CFU/mL). Final. 12/02/2019 Right Foot Tissue Aerobic Culture: Normal [place] After 48 Hours. Final. 12/02/2019 Right Foot Tissue AFB Culture: No Acid Fast Bacilli Seen. Preliminary. 12/02/2019 Right Foot Tissue Anaerobic Culture: No Anaerobic Growth at 2 Days. Final. 12/02/2019 Right Foot Tissue Fungus Culture: Fungal Culture in Progress. Preliminary. 12/01/2019 Blood Culture #1: No Growth After 5 Days. Final. 12/01/2019 Blood Culture #2: No Growth After 5 Days. Final. 11/30/2019 Right Foot Wound Aerobic Culture: Normal [place] After 48 Hours. Final. 11/21/2019 Left Leg Wound Aerobic Culture: Normal [place] After 48 Hours. Final. 11/20/2019 Right Foot Tissue Aerobic Culture: Moderate Growth Enterobacter cloacae complex, S=Youssef Sensitive. Final. 11/20/2019 Right Foot Tissue Anaerobic Culture: No Anaerobic Growth at 2 Days. Final. 11/20/2019 Right Foot Bone Aerobic Culture: Light Growth Enterobacter Cloacae Complex, S=Youssef Sensitive. Final. 11/20/2019 Right Foot Bone Anaerobic Culture: No Anaerobic Growth at 2 Days. Final. Date: 12/08/2019 New labs/results as of last note Update from previous note Tmax: 99.2 Urine Output: 4950 Stool: not recorded Current Antibiotics: Rocephin 2 gm IV every 24 Hours until 01/02/2020 Previous Antibiotic: Ancef 2,000 mg IV every 8 Hours Pre/Post Procedure I have personally reviewed the labs and results Test results Laboratory and Additional Data Reviewed: U/A 12/08/2019 Glucose: 150 Blood: Small WBC: 7 Bacteria: Rare Labs: Vitamin D, Total 12/07/2019 04:55 16 B12/Folate 12/07/2019 04:55 B12: 828 Folate: >20.0 Ferritin 12/07/2019 04:55 211 Iron 12/07/2019 04:55 30 CMP 12/07/2019 04:55 Glucose: 243 BUN: 17 Creatinine: 0.86 Sodium: 138 Potassium: 3.9 Total Protein: 6.6 Albumin: 2.4 Alk Phos: 76 AST: 28 ALT: 40 Total Bilirubin: 0.4 CBC 12/07/2019 04:54 WBC: 6.95 Hgb: 11.3 Hct: 36.8 Platelets: 210 Lymphocytes Abs: 0.64 CRP 12/05/2019 07:58 85.3 U/A 12/07/2019 Protein: 30 Glucose: >=500 Blood: Small Leukocyte Esterase: Trace Renal Epithelial: <1 Current Cultures: 12/07/2019 Urine Aerobic Culture on arrival to Nursing Rehab Unit: No Growth, Incubation Continued.Preliminary. 12/02/2019 Right Foot Tissue Aerobic Culture: Normal [place] After 48 Hours. Final. 12/02/2019 Right Foot Tissue AFB Culture: No Acid Fast Bacilli Seen. Preliminary. 12/02/2019 Right Foot Tissue Anaerobic Culture: No Anaerobic Growth at 2 Days. Final. 12/02/2019 Right Foot Tissue Fungus Culture: Fungal Culture in Progress. Preliminary. 12/01/2019 Blood Culture #1: No Growth After 5 Days. Final. 12/01/2019 Blood Culture #2: No Growth After 5 Days. Final. 11/30/2019 Right Foot Wound Aerobic Culture: Normal [place] After 48 Hours. Final. 11/21/2019 Left Leg Wound Aerobic Culture: Normal [place] After 48 Hours. Final. 11/20/2019 Right Foot Tissue Aerobic Culture: Moderate Growth Enterobacter cloacae complex, S=Youssef Sensitive. Final. 11/20/2019 Right Foot Tissue Anaerobic Culture: No Anaerobic Growth at 2 Days. Final. 11/20/2019 Right Foot Bone Aerobic Culture: Light Growth Enterobacter Cloacae Complex, S=Youssef Sensitive. Final. 11/20/2019 Right Foot Bone Anaerobic Culture: No Anaerobic Growth at 2 Days. Final. Radiology: Left Ankle X-Ray 12/07/2019 1. A new screw internally fixes the base of the 5th metatarsal to near anatomic alignment, however this screw is broken/fractured. 2. 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 Lateral subluxation of the 2nd through 5th metatarsal bases is again noted, as well as pes planus deformity. 3. Milder arthritis is noted in the tibiotalar joint and subtalar joint. 4. Large calcaneal enthesophytes are noted at the insertion sites of the plantar fascia and Achilles tendon. 5. No acute fracture, or other acute bony abnormality is seen. Date: 12/07/2019 New labs/results as of last note Update from previous note Tmax: 99.1 Urine Output: 1800 Stool: not recorded Current Antibiotics: Rocephin 2 gm IV every 24 Hours until 01/02/2020 Previous Antibiotic: Ancef 2,000 mg IV every 8 Hours Pre/Post Procedure I have personally reviewed the labs and results Test results Laboratory and Additional Data Reviewed: Labs: Vitamin D, Total 12/07/2019 04:55 16 B12/Folate 12/07/2019 04:55 B12: 828 Folate: >20.0 Ferritin 12/07/2019 04:55 211 Iron 12/07/2019 04:55 30 CMP 12/07/2019 04:55 Glucose: 243 BUN: 17 Creatinine: 0.86 Sodium: 138 Potassium: 3.9 Total Protein: 6.6 Albumin: 2.4 Alk Phos: 76 AST: 28 ALT: 40 Total Bilirubin: 0.4 CBC 12/07/2019 04:54 WBC: 6.95 Hgb: 11.3 Hct: 36.8 Platelets: 210 Lymphocytes Abs: 0.64 CRP 12/05/2019 07:58 85.3 U/A 12/07/2019 Protein: 30 Glucose: >=500 Blood: Small Leukocyte Esterase: Trace Renal Epithelial: <1 Current Cultures: 12/02/2019 Right Foot Tissue Aerobic Culture: Normal [place] After 48 Hours. Final. 12/02/2019 Right Foot Tissue AFB Culture: No Acid Fast Bacilli Seen. Preliminary. 12/02/2019 Right Foot Tissue Anaerobic Culture: No Anaerobic Growth at 2 Days. Final. 12/02/2019 Right Foot Tissue Fungus Culture: Fungal Culture in Progress. Preliminary. 12/01/2019 Blood Culture #1: No Growth After 5 Days. Final. 12/01/2019 Blood Culture #2: No Growth After 5 Days. Final. 11/30/2019 Right Foot Wound Aerobic Culture: Normal [place] After 48 Hours. Final. 11/21/2019 Left Leg Wound Aerobic Culture: Normal [place] After 48 Hours. Final. 11/20/2019 Right Foot Tissue Aerobic Culture: Moderate Growth Enterobacter cloacae complex, S=Youssef Sensitive. Final. 11/20/2019 Right Foot Tissue Anaerobic Culture: No Anaerobic Growth at 2 Days. Final. 11/20/2019 Right Foot Bone Aerobic Culture: Light Growth Enterobacter Cloacae Complex, S=Youssef Sensitive. Final. 11/20/2019 Right Foot Bone Anaerobic Culture: No Anaerobic Growth at 2 Days. Final. Date: 12/06/2019 New labs/results as of last note Update from previous note Tmax: 99 Urine Output: 1250 Stool: not recorded Current Antibiotics: Rocephin 2 gm IV every 24 Hours until 01/02/2020 Previous Antibiotic: Ancef 2,000 mg IV every 8 Hours Pre/Post Procedure I have personally reviewed the labs and results Test results Laboratory and Additional Data Reviewed: Labs: CBC 12/05/2019 07:58 WBC: 7.98 Hgb: 11.4 Hct: 36.3 Platelets: 228 Lymphocytes Abs: 0.52 CMP 12/05/2019 07:58 Glucose: 223 BUN: 19 Creatinine: 0.86 Sodium: 139 Potassium: 4.1 Total Protein: 6.4 Albumin: 2.4 Alk Phos: 75 AST: 20 ALT: 31 Total Bilirubin: 0.4 CRP 12/05/2019 07:58 85.3 Current Cultures: 12/02/2019 Right Foot Tissue Aerobic Culture: Normal [place] After 48 Hours. Final. 12/02/2019 Right Foot Tissue AFB Culture: No Acid Fast Bacilli Seen. Preliminary. 12/02/2019 Right Foot Tissue Anaerobic Culture: No Anaerobic Growth at 2 Days. Final. 12/02/2019 Right Foot Tissue Fungus Culture: Fungal Culture in Progress. Preliminary. 12/01/2019 Blood Culture #1: No Growth After 5 Days. Final. 12/01/2019 Blood Culture #2: No Growth After 5 Days. Final. 11/30/2019 Right Foot Wound Aerobic Culture: Normal [place] After 48 Hours. Final. 11/21/2019 Left Leg Wound Aerobic Culture: Normal [place] After 48 Hours. Final. 11/20/2019 Right Foot Tissue Aerobic Culture: Moderate Growth Enterobacter cloacae complex, S=Youssef Sensitive. Final. 11/20/2019 Right Foot Tissue Anaerobic Culture: No Anaerobic Growth at 2 Days. Final. 11/20/2019 Right Foot Bone Aerobic Culture: Light Growth Enterobacter Cloacae Complex, S=Youssef Sensitive. Final. 11/20/2019 Right Foot Bone Anaerobic Culture: No Anaerobic Growth at 2 Days. Final. Pathology: 12/02/2019 A. Soft tissue, Right Foot, excision: Non-specific ulcer. Date: 12/05/2019 New labs/results as of last note Update from previous note Tmax: 98.8 Urine Output: 2900 Stool: not recorded Current Antibiotics: Rocephin 2 gm IV every 24 Hours Previous Antibiotic: Ancef 2,000 mg IV every 8 Hours Pre/Post Procedure I have personally reviewed the labs and results Test results Laboratory and Additional Data Reviewed: Labs: CBC 12/05/2019 07:58 WBC: 7.98 Hgb: 11.4 Hct: 36.3 Platelets: 228 Lymphocytes Abs: 0.52 CMP 12/05/2019 07:58 Glucose: 223 BUN: 19 Creatinine: 0.86 Sodium: 139 Potassium: 4.1 Total Protein: 6.4 Albumin: 2.4 Alk Phos: 75 AST: 20 ALT: 31 Total Bilirubin: 0.4 CRP 12/05/2019 07:58 85.3 Current Cultures: 12/02/2019 Right Foot Tissue Aerobic Culture: Normal [place] After 48 Hours. Final. 12/02/2019 Right Foot Tissue AFB Culture: No Acid Fast Bacilli Seen. Preliminary. 12/02/2019 Right Foot Tissue Anaerobic Culture: No Anaerobic Growth at 2 Days. Final. 12/02/2019 Right Foot Tissue Fungus Culture: Fungal Culture in Progress. Preliminary. 12/01/2019 Blood Culture #1: No Growth After 48 Hours. Preliminary. 12/01/2019 Blood Culture #2: No Growth After 48 Hours. Preliminary. 11/30/2019 Right Foot Wound Aerobic Culture: Normal [place] After 48 Hours. Final. 11/21/2019 Left Leg Wound Aerobic Culture: Normal [place] After 48 Hours. Final. 11/20/2019 Right Foot Tissue Aerobic Culture: Moderate Growth Enterobacter cloacae complex, S=Youssef Sensitive. Final. 11/20/2019 Right Foot Tissue Anaerobic Culture: No Anaerobic Growth at 2 Days. Final. 11/20/2019 Right Foot Bone Aerobic Culture: Light Growth Enterobacter Cloacae Complex, S=Youssef Sensitive. Final. 11/20/2019 Right Foot Bone Anaerobic Culture: No Anaerobic Growth at 2 Days. Final. Current Antibiotics: Rocephin 2 gm IV every 24 Hours Previous Antibiotic: Ancef 2,000 mg IV every 8 Hours Pre/Post Procedure I have personally reviewed the labs and results Test results Laboratory and Additional Data Reviewed: Results from last 7 days Lab Units 12/01/19 0648 11/30/19 1245 11/29/19 0655 SODIUM mmol/L 140 140 142 POTASSIUM mmol/L 5.0 4.9 5.1 CHLORIDE mmol/L 106 105 107 BUN mg/dL 22 24 36* CREATININE mg/dL 0.98 0.94 1.12 GLUCOSE mg/dL 223* 127* 108* CALCIUM mg/dL 9.1 9.3 9.3 Results from last 7 days Lab Units 12/01/19 0635 11/30/19 1245 WBC K/mcL 8.56 8.72 HGB g/dL 11.2* 10.8* HCT % 35.6* 35.4* PLT K/mcL 232 243 Results from last 7 days Lab Units 11/30/19 1245 ALK PHOS U/L 67 BILIRUBIN TOTAL mg/dL 0.3 TOTAL PROTEIN g/dL 6.5 ALTR U/L 56 AST U/L 42 Current Cultures: 12/02/2019 Right Foot Tissue Aerobic Culture: Normal [place] After 24 Hours. Preliminary. 12/02/2019 Right Foot Tissue AFB Culture: No Acid Fast Bacilli Seen. Preliminary. 12/01/2019 Blood Culture #1: No Growth After 48 Hours. Preliminary. 12/01/2019 Blood Culture #2: No Growth After 48 Hours. Preliminary. 11/30/2019 Right Foot Wound Aerobic Culture: Normal [place] After 48 Hours. Final. 11/21/2019 Left Leg Wound Aerobic Culture: Normal [place] After 48 Hours. Final. 11/20/2019 Right Foot Tissue Aerobic Culture: Moderate Growth Enterobacter cloacae complex, S=Youssef Sensitive. Final. 11/20/2019 Right Foot Tissue Anaerobic Culture: No Anaerobic Growth at 2 Days. Final. 11/20/2019 Right Foot Bone Aerobic Culture: Light Growth Enterobacter Cloacae Complex, S=Youssef Sensitive. Final. 11/20/2019 Right Foot Bone Anaerobic Culture: No Anaerobic Growth at 2 Days. Final. Recent Cultures: 05/30/2019 Right Foot Tissue Aerobic Culture: Normal [place] After 48 Hours. Final. 05/30/2019 Right Foot Tissue Anaerobic Culture: No Anaerobic Growth at 2 Days. Final. 03/23/2019 Right Foot Wound Aerobic Culture: Heavy Growth Raoultella [place], R=Ampicillin, S=Remainder of panel. 03/09/2019 Right Foot Wound Aerobic Culture: Normal [place] After 48 Hours. Final. 02/09/2019 Right Foot Wound Aerobic Culture: Normal [place] After 48 Hours. Final. 01/19/2019 Right Toe Two Wound Aerobic Culture: Heavy Growth Enterobacter Cloacae Complex, S=Youssef Sensitive. Final. Radiology: Right Foot X-Ray 12/02/2019 Intraoperative fluoroscopy provided. Severe bony deformity of the foot as described. Please correlate with operative note. Chest X-Ray 11/23/2019 1. Right arm PICC line in place with tip in superior vena cava. 2. No acute pulmonary disease. 3. Cardiomegaly with evidence of prior open heart surgery. 4. No acute osseous abnormality Right Foot X-Ray 11/20/2019 IMPRESSION: Intraoperative fluoroscopy for localization during right foot and ankle reconstruction and fixation. Please see operative report for details. Left Ankle X-Ray Ordered 11/20/2019 Right Foot X-Ray 11/20/2019 FINDINGS: Two views of the right foot were obtained. There are advanced changes of Charcot arthropathy throughout the right midfoot which appears similar compared to prior examination. There are postsurgical changes of resection of the right 2nd toe proximal phalangeal head. IMPRESSION: 1. Advanced changes of Charcot arthropathy throughout the right midfoot which appear unchanged compared to prior examination. Chest AP/PA X-Ray 11/16/2019 1. No acute pulmonary disease. 2. Cardiomegaly, with evidence of prior open heart surgery. 3. Multilevel degenerative changes of the thoracic spine. MR Right Foot 05/19/2019 1. There is a superficial soft tissue ulcer again seen along the plantar aspect of the midfoot, butthere is no evidence of abscess or osteomyelitis in this region. 2. Stable appearance of the sequela of severe neuropathic arthropathy of the midfoot with collapse of the midfoot again seen resulting in a rocker bottom deformity. 3. A moderate amount of diffuse subcutaneous edema along the dorsum of the foot may be due to reactive edema or a cellulitis, but this is nonspecific. Right Foot X-Ray 04/28/2019 1. Soft tissue irregularity involving the plantar aspect of the foot likely representing the reported ulcer. No bony destruction to suggest osteomyelitis. 2. No evidence of radiopaque foreign body. 3. Stable deformity and degenerative changes involving the midfoot. Findings are consistent with Charcot joint. NM White Cell Scan Spot Limited 03/08/2017 FINDINGS: A focal area of intense abnormal white blood cell migration is noted central plantar aspect of the right foot corresponding to the area of the wound demonstrated radiographically. No other focus of white blood cell migration abnormality is evident within the right or left foot. IMPRESSION: Focal area of abnormal white blood cell migration at the plantar aspect central right foot may be at the wound itself or may be involving the bone with associated fracture as demonstrated radiographically. Anatomic detail is insufficient for differentiation between the two. Renal U/S 03/07/2017 IMPRESSION: Severe thickening of the urinary bladder wall. This could be due to outlet obstruction with hypertrophy of the wall. If there is no such history, this should be evaluated with cystoscopy. CVPS: Arterial Doppler: not on file Venous Doppler: not on file 2D Echo 11/23/2019 Moderate LV enlargement with LVH. Global systolic dysfunction with segmental features. LVEF 30% Elevated LV filling pressures RV is dilated with severe RV dysfunction Mild mitral annular calcification, mild thickening of the aortic valve without hemodynamically significant valvular disease There is a atrial level right to left shunt identified with saline contrast with free breathing andValsalva most likely via PFO LVEF unchanged from to previous echo from 2017 Surgeries: Please see above for surgical history Procedure: Right Foot I&D ADJUSTMENT EXTERNAL FIXATOR Date: 12/02/2019 Surgery: Alena Mora DPM Procedure: RIGHT FOOT RECONSTRUCTION WITH APPLICATION OF CIRCULAR STATIC EXTERNAL FIXATION Date: 11/20/2019 Surgeon: Alena Mora DPM Procedure: ARTHROPLASTY 2ND TOE RIGHT FOOT Date: 01/25/2019 Surgeon: Rosa M Robles DPM Pathology: not on file documented in this encounter* Alena Mora DPM - 12/28/2019 9:40 AM EDT Subjective: Patient is a pleasant 59-year-old male who presents to the wound care center for his 1 month follow-up evaluation status post right midfoot wedge resection and application of external fixator for Charcot reconstruction (date of surgery 11/20/2019). Patient states that he has been doing well. He was recently discharged home from the rehab facility and continues to receive IV antibiotics via his PICC line, which is managed by Dr. Awad. Patient states that he has been nonweightbearing as instructed to the right lower extremity. He states that the nursing staff has been changing his dressing once every other day as instructed. No new pedal complaints.Denies fevers, chills, nausea, vomiting, [address] pain, shortness of breath, or any other constitutional symptoms. Objective: Vascular: DP and PT pulses are palpable 2/4. Cap refill time is brisk to distal digits. Skin temperature is warm to warm from proximal tibial tuberosity to distal digits. +1 pitting edema noted to the right foot. Neuro: Gross sensation is intact. Protective sensation is absent. Dermatologic: The right foot plantar surgical incision site is well coapted with sutures intact with exception of the central medial aspect where a new dehiscence is noted measuring 5.0 x 1.5 x 0.5 cm. Serous drainage noted. Wound is fibrogranular. It does not probe to bone. No erythema, edema, drainage, or any acute signs of infection.This area was swab cultured today. All pin sites are intact with no surrounding erythema, edema, drainage. The external fixation device is intact. No loosening of pins or wires noted. Small hemorrhagic blister noted to the distal tuft of the right great toe secondary to pressure from the Zechariah bandage. This blister was de-roofed revealing a deep tissue injury. No erythema, edema, or any acute signs of infection. Musculoskeletal: Patient is able to wiggle digits. Compartments are soft and compressible. No calf pain. Assessment: 5 weeks status post right midfoot wedge resection and application of external fixator for Charcot reconstruction (Date of surgery 11/20/2019 -Dr. Mora). Charcot arthropathy, midfoot, right foot Diabetes with peripheral neuropathy Hemorrhagic blister, right great toe --> now deep tissue injury New dehiscence to central incision site --> down to subcutaneous layer Plan: Patient was seen and evaluated. Discussed all clinical findings. Patient is doing well overall. A swab culture was obtained from the right foot plantar incision new dehiscence site The new dehisced site was in need of debridement to removal all nonviable tissue, biofilm, callus. The wound bed was debrided down to and including subcutaneous tissue using a ring curette. No anesthesia secondary to neuropathy. Hemostasis achieved with compression. In addition, the hemorrahgic blister was also de-roofed revealed a deep tissue injury. Applied kb and dsd to both sites. All sutures were removed today All pins were cleansed with alcohol and Betadine was applied to all pins at the skin interface. The pins sites were then dressed with 4 x 4 gauze. A 6 inch Zechariah bandage was then applied around the external fixator construct. Patient is to keep nonweightbearing to the right lower extremity at all times. He is to keep everything clean and dry. Nurses are to clean wires every other day with alcohol. In addition, Nurses to apply kb to dehisced central incision site plantar right foot and cover with 2 kerlix. All questions were answered to satisfaction. Patient is to return to clinic in 1 week for follow-up evaluation Alena Mora DPM * Nelda Gilliam RN - 12/28/2019 8:40 AM EDT Post-debridement measurements are : 5.0 x1.5 x 0.5. LPapst RN documented in this encounter* Alena Mora DPM - 01/05/2020 1:55 PM EDT Associated Order(s): Wound Debridement Post-Procedure Diagnose(s): Foot ulcer with fat layer exposed, right (HCC); Dehiscence of operativewound, subsequent encounter Subjective: Patient is a pleasant 59-year-old male who presents to the wound care center for his 6 weeks follow-up evaluation status post right midfoot wedge resection and application of external fixator for Charcot reconstruction (date of surgery 11/20/2019). Patient states that he has been doing well. He was recently discharged home from the rehab facility and continues to receive IV antibiotics via his PICC line, which is managed by Dr. Awad. Patient states that he has been nonweightbearing as instructed to the right lower extremity. He states that the nursing staff has been changing his dressing once every other day as instructed. No new pedal complaints.Denies fevers, chills, nausea, vomiting, lin[address] st pain, shortness of breath, or any other constitutional symptoms. Objective: Vascular: DP and PT pulses are palpable 2/4. Cap refill time is brisk to distal digits. Skin temperature is warm to warm from proximal tibial tuberosity to distal digits. +1 pitting edema noted to the right foot. Neuro: Gross sensation is intact. Protective sensation is absent. Dermatologic: The right foot plantar surgical incision site is well coapted with sutures intact with exception of the central medial aspect where a dehiscence is noted measuring 4.0 x 1.3 x 0.3 cm. Minimal drainage noted. Wound is fibrogranular. It does not probe to bone. No erythema, edema, drainage, or any acute signs of infection.This area was swab cultured today. All pin sites are intact withno surrounding erythema, edema, drainage. The external fixation device is intact. No loosening of pins or wires noted. Small hemorrhagic blister noted to the distal tuft of the right great toe secondary to pressure from the Zechariah bandage. This blister was de-roofed revealing a deep tissue injury. No e rythema, edema, or any acute signs of infection. Musculoskeletal: Patient is able to wiggle digits. Compartments are soft and compressible. No calf pain. Assessment: 6 weeks status post right midfoot wedge resection and application of external fixator for Charcot reconstruction (Date of surgery 11/20/2019 -Dr. Mora). Charcot arthropathy, midfoot, right foot Diabetes with peripheral neuropathy Hemorrhagic blister, right great toe --> now deep tissue injury New dehiscence to central incision site --> down to subcutaneous layer Plan: Patient was seen and evaluated. Discussed all clinical findings. Patient is doing well overall. The dehisced site was in need of debridement to removal all nonviable tissue, biofilm, callus. The wound bed was debrided down to and including subcutaneous tissue using a ring curette. No anesthesiasecondary to neuropathy. Hemostasis achieved with compression. See procedure note. Applied kb and dsd to both sites. All pins were cleansed with alcohol and Betadine was applied to all pins at the skin interface. A 6 inch Zechariah bandage was then applied around the external fixator construct. Patient is to keep nonweightbearing to the right lower extremity at all times. He is to keep everything clean and dry. Nurses are to clean wires every other day with alcohol. In addition, Nurses to apply kb to dehisced central incision site plantar right foot and cover with 2 kerlix. All questions were answered to satisfaction. Patient is to return to clinic in 1 week for follow-up evaluation Alena Mora DPM Wound Care Debridement Timeout: Verbal Consent obtained?: Yes Written Consent obtained?: Yes Consent given by: Patient Immediately prior to procedure a time out was called to verify the correct patient, procedure, equipment, support service tech and site/side marked as required Debridement Procedure: Debridement Performed for Assessment: Right plantar foot Performed by: Physician Debridement Type: Surgical Pain Control: N/A Level: Skin/Subcutaneous Tissue Post Debridement Measurements: Length (cm): 4 Width (cm): 1.3 Depth (cm): 0.3 Area (sq cm): 5.2 Volume (cm3): 1.56 Percent Debrided: 100 Total Area Debrided (sq cm): 5.2 Tissue and other material debrided: Subcutaneous Devitalized tissue debrided: Biofilm, Slough and Callus Instrument: Curette Bleeding: Minimal Hemostasis Achieved: Pressure Procedural Pain: Insensate Post Procedural Pain: Insensate Response to Treatment: Procedure was tolerated well documented in this encounter* Alena Mora DPM - 01/12/2020 8:16 AM EDT Associated Order(s): Wound Debridement; Wound Debridement Post-Procedure Diagnose(s): Foot ulcer with fat layer exposed, right (HCC); Dehiscence of operativewound, subsequent encounter Subjective: Patient is a pleasant 59-year-old male who presents to the wound care center for his 6 weeks follow-up evaluation status post right midfoot wedge resection and application of external fixator for Charcot reconstruction (date of surgery 11/20/2019). Patient states that he has been doing well. He was recently discharged home from the rehab facility and continues to receive IV antibiotics via his PICC line, which is managed by Dr. Awad. Patient states that he has been nonweightbearing as instructed to the right lower extremity. He states that the nursing staff has been changing his dressing once every other day as instructed. No new pedal complaints.Denies fevers, chills, nausea, vomiting, lin[address] st pain, shortness of breath, or any other constitutional symptoms. Objective: Vascular: DP and PT pulses are palpable 2/4. Cap refill time is brisk to distal digits. Skin temperature is warm to warm from proximal tibial tuberosity to distal digits. +1 pitting edema noted to the right foot. Neuro: Gross sensation is intact. Protective sensation is absent. Dermatologic: The right foot plantar surgical incision site is well coapted with exception of the central medial aspect where a dehiscence is noted measuring 3.5 x 1.5 x 0.5 cm. Minimal drainage noted. Wound is fibrogranular. It does not probe to bone. No erythema, edema, drainage, or any acute signs of infection.This area was swab cultured today. All pin sites are intact with no surrounding erythema, edema, drainage. The external fixation device is intact. No loosening of pins or wires noted. The previously noted blister on the distal tuft of the right great toe has a loose eschar measuring 0.5 x 0.5 0.2 cm. A partial thickness ulceration noted to right 3rd toe secondary to blister. No sign of infection. Musculoskeletal: Patient is able to wiggle digits. Compartments are soft and compressible. No calf pain. Assessment: 7 weeks status post right midfoot wedge resection and application of external fixator for Charcot reconstruction (Date of surgery 11/20/2019 -Dr. Mora). Charcot arthropathy, midfoot, right foot Diabetes with peripheral neuropathy Hemorrhagic blister, right great toe --> deep tissue injury --> now with a loose eschar Dehiscence to central incision site --> down to subcutaneous layer Blister 3rd toe, right foot Plan: Patient was seen and evaluated. Discussed all clinical findings. Patient is doing well overall. The dehisced site was in need of debridement to removal all nonviable tissue, biofilm, callus. The wound bed was debrided down to and including subcutaneous tissue using a ring curette. No anesthesiasecondary to neuropathy. Hemostasis achieved with compression. See procedure note. Applied kb and dsd to wound site. The loose eschar site was in need of debridement to removal all nonviable tissue, biofilm, callus. The wound bed was debrided down to and including subcutaneous tissue using a ring curette. No anesthesia secondary to neuropathy. Hemostasis achieved with compression. See procedure note. Applied kb and dsd to wound sites. All pins were cleansed with alcohol and Betadine was applied to all pins at the skin interface. A 6 inch Zechariah bandage was then applied around the external fixator construct. Patient is to keep nonweightbearing to the right lower extremity at all times. He is to keep everything clean and dry. Nurses are to clean wires every other day with alcohol. In addition, Nurses to apply kb to dehisced central incision site plantar right foot and cover with 2 kerlix. All questions were answered to satisfaction. Patient is to return to clinic in 1 week for follow-up evaluation Alena Mora DPM Wound Care Debridement Timeout: Verbal Consent obtained?: Yes Written Consent obtained?: Yes Consent given by: Patient Immediately prior to procedure a time out was called to verify the correct patient, procedure, equipment, support service tech and site/side marked as required Debridement Procedure: Debridement Performed for Assessment: Right plantar foot Performed by: Physician Debridement Type: Surgical Pain Control: N/A Level: Skin/Subcutaneous Tissue Post Debridement Measurements: Length (cm): 3.5 Width (cm): 1 Depth (cm): 0.5 Area (sq cm): 3.5 Volume (cm3): 1.75 Percent Debrided: 100 Total Area Debrided (sq cm): 3.5 Tissue and other material debrided: Subcutaneous Devitalized tissue debrided: Biofilm and Slough Instrument: Curette Bleeding: Minimal Hemostasis Achieved: Pressure Procedural Pain: Insensate Post Procedural Pain: Insensate Response to Treatment: Procedure was tolerated well Wound Care Debridement Timeout: Verbal Consent obtained?: Yes Written Consent obtained?: Yes Consent given by: Patient Immediately prior to procedure a time out was called to verify the correct patient, procedure, equipment, support service tech and site/side marked as required Debridement Procedure: Debridement Performed for Assessment: Right hallux Performed by: Physician Debridement Type: Surgical Pain Control: N/A Level: Skin/Subcutaneous Tissue Post Debridement Measurements: Length (cm): 0.5 Width (cm): 0.5 Depth (cm): 0.2 Area (sq cm): 0.25 Volume (cm3): 0.05 Percent Debrided: 100 Total Area Debrided (sq cm): 0.25 Tissue and other material debrided: Subcutaneous Devitalized tissue debrided: Biofilm and Slough Instrument: Curette Bleeding: Minimal Hemostasis Achieved: Pressure Procedural Pain: Insensate Post Procedural Pain: Insensate Response to Treatment: Procedure was tolerated well documented in this encounter* Maria Isabel Awad MD - 01/12/2020 8:00 AM EDT 12/04/2019 Patient Name: Dyllan Huertas Admit Date: MR #: [id number] : 1960 Physicians: Rohit Aguilar MD (Family); No ref. provider found (Referring) Assessment and Plan: Impression Impression Right foot ulcer status post surgical intervention Severe Charcot deformity status post surgical intervention Enterobacter cloaca infection and gram-negative infection see cultures below RaullTela which is a gram-negative Acute osteomyelitis bone culture on 11/20/2019+ for the same pathogen that was present in January 2019is Enterobacter cloaca pansensitive RAJINDER none on chart 11/24/2019 Osteomyelitis as bone culture is positive from 11/20/2019 for Enterobacter cloaca 11/30/2019 New drainage from the pin site Elevated sed rate Elevated CRP Osteomyelitis right foot 12/01/2019 Osteomyelitis right foot Delayed healing of the plantar foot postop wound Cellulitis of the foot 12/04/2019 Status post surgical intervention with incision and drainage by Dr. Mora on 12/02/2019 cultures now with normal chalino AF[employer] and fungus negative 12/05/2019 Sed rate 85 CRP 85 Per rehab physician there is a risk for the left ankle issues especially with diabetic neuropathy in the left foot and he has had right foot surgery 12/06/2019 OR cultures negative elevated CRP could be just postop We will continue IV antibiotics as planned till January 01 Rocephin 2 g every 24 hours 12/11/2019 Right foot wound with some maceration drainage 12/12/2019 CRP improving 12/21/2019 Patient is home now last night he was having difficulty flushing the line PICC line not functioning well because the picc team Plantar foot wound no cellulitis no maceration pin sites look excellent 2019 Right foot wound postop healing remarkably cellulitis improved Patient completing treatment for acute osteomyelitis Enterobacter infection Minimal drainage at the incision site will culture today January 12, 2020 Right second toe and great toe superficial ulceration present Right plantar foot wound excellent with almost healing no drainage no redness Sed rate 33 last CRP 6.4 12/28/2019 much better than before last culture normal chalino from December 27 Plan January 12, 2020 Discontinue PICC line was done on January 01 Discontinue IV meropenem Doxycycline 100 g p.o. twice daily for 2 months I will give 30 days with 1 refill Local dressings per Dr. Mora Revisit 2 weeks for me with Dr. Mora 12/28/2019 Meropenem 1 g IV twice daily till January 01 which will be 6 weeks of treatment Labs could not be drawn at home because of difficulty for peripheral draw I did not want him to drive from the line because of risk of clotting We will draw them here today After that we will give him doxycycline 100 mg p.o. twice daily for 6 weeks to make 3 months treatment 12/21/2019 IV meropenem 1 g twice daily till January 01 Picc team to evaluate the PICC line consider another midline if needed Revisit 3 weeks for me 12/18/2019 OPAT referral IV meropenem 1 g every 12 till January 01 Home IV antibiotic by [facility] Any dressing orders would be per Dr. Mora CBC CMP sed rate CRP every Wednesday12/14/2019 and 12/15/2019 Continue IV meropenem till January 01 if he can manage to do that Await a picture by podiatry upon dressing change today I have discussed with podiatry Will plan for CBC CMP sed rate CRP next week 12/12/2019 Patient tolerating the meropenem Will await Dr. Mora to check the dressing on the wound at her next rounds Discontinue Rocephin Start meropenem 1 g IV every 12 for the Enterobacter and the other gram-negative that he had seen in the cultures especially with the extensive surgery that was done and he had some drainage on the weekend Continue IV antibiotics till January 01 CBC CMP sed rate CRP Will discuss with Dr. Lopez and Dr. Mora 12/08/2019 Rocephin continued till January 01 Urinary retention to be evaluated by Dr. Lopez Will await for Dr. Mora to do the dressings 12/07/2019 Rocephin 2 g IV 24 hours till January 01 Discontinue Schulte catheter CBC CMP sed rate CRP on Wednesday12/06/2019 Rocephin 2 g to 24 hours till January 01 CBC CMP sed rate CRP periodically Transfer to rehab he has been accepted Will follow the patient in rehab with Dr. Lopez and Dr. Mora 12/05/2019 Rocephin 2 g IV 24 hours continue till January 01 because of the second surgery Elevated sed rate CRP will be followed Await transfer to rehab if approved and bed available 12/04/2019 Rocephin 2 g IV every 24 hours CBC CMP sed rate CRP Rehab referral with Dr. Lopez here if possible We will discuss with podiatry I have discussed with hospitalist OR cultures normal chalino negative AFB and fungus Blood cultures negative so far 12/01/2019 Continue Rocephin till further cultures available CBC CMP sed rate CRP Blood cultures x2 half an hour apart He did bleed well even in the wound clinic yesterday at some point will order arterial Dopplers I have discussed with podiatry at length 11/30/2019 Culture the pin site that is bleeding and draining Follow-up CBC Liver function test Rocephin 2 g IV every 24 hours continue till December 18 May need to go up to additional 2 weeks afterMar which will be January 01 we will decide based on lab results and clinical response If the culture of the pin site shows any additional pathogens may need to readmit for additional IVantibiotics and streamlining treatment Revisit 1 week both I have discussed with podiatry Chief Complaint/Reason for Visit: I am seeing this patient at the request of Dr. Boogie Phan MD. I have reviewed the current hospital record, available laboratory, cardiology and imaging studies as well as available out patient records. History of Present Illness: Admission H&P by Boogie Phan MD on 11/30/2019: Dyllan Huertas is a 59 y.o. male presenting from home with h/o diabetes on disability since 2014 related to a Charcot foot and diabetes developed an ulcer in the beginning of 2018 was being followed by Dr. Robles at the office we have cultures from last year in January with Enterobacter and since then culture with gram-negative bacteria also was seen by Dr. Mora was found to have severe Charcot a corrective surgery was done with placement of an external fixator on 11/20. Today at wound clinic follow up was found to have increased drainage from one of the pin sites, being admitted for continued IV ATB and possible OR/ exploration in am. Exam: Tmax: 99 Urine Output: 2000 Stool: not recorded There were no vitals filed for this visit. Allergies: no known allergies. Current Outpatient Medications: alteplase (CATH AMANDO) 2 mg injection, Instill 2mL into clotted IV line as needed for brake liner. May repeat as needed. Do not use on Peripheral or Midlines ., Disp: 2 mL, Rfl: 52 calcium carbonate 400 mg Chew, Chew and Swallow 1,000 mg daily ., Disp: , Rfl: carvediloL (COREG) 12.5 MG tablet, Take 1 (one) tablet (12.5 mg total) by mouth 2 (two) times a day., Disp: 60 tablet, Rfl: 0 docusate sodium (COLACE) 100 MG capsule, Take 100 mg by mouth daily ., Disp: , Rfl: FENOFIBRATE MICRONIZED ORAL, Take 160 mg by mouth daily ., Disp: , Rfl: finasteride (PROSCAR) 5 mg tablet, Take 2.5 mg by mouth every night at bedtime Wednesday,WED,WED ., Disp: , Rfl: gabapentin (NEURONTIN) 300 MG capsule, gabapentin GABAPENTIN 300 MG CAPS One tablet by mouth daily GABAPENTIN [id number] Sebastián aDiley MD 06-15-2017 [facility] ([id number]), Disp: , Rfl: heparin, porcine, PF, 100 unit/mL Syrg, For Open Ended Midline/PICC/CVC/Port: Flush with 5ml heparin as final flush after each use, weekly if not used. Use 3ml for Peripheral IV ., Disp: 100 Syringe,Rfl: 52 insulin NPH (HumuLIN,NovoLIN) 100 unit/mL injection, Take 30 units with breakfast, and 26 units at bedtime ., Disp: 20 mL, Rfl: 12 insulin regular (HumuLIN R, NovoLIN R) 100 unit/mL injection, Take 12 units three times daily before meals ., Disp: 20 mL, Rfl: 5 levothyroxine (SYNTHROID, LEVOTHROID) 112 MCG tablet, once daily ., Disp: , Rfl: magnesium oxide (MAG-OX) 400 mg (241.3 mg magnesium) tablet, Take 400 mg by mouth daily ., Disp: , Rfl: melatonin 5 mg Tab, Take 10 mg by mouth daily ., Disp: , Rfl: metFORMIN (GLUCOPHAGE-XR) 500 MG 24 hr tablet, 1,000 mg 2 (two) times a day ., Disp: , Rfl: multivitamin (THERAGRAN) per tablet, Take 1 tablet by mouth daily ., Disp: , Rfl: nitroGLYCERIN (NITROSTAT) 0.4 MG SL tablet, Place 1 (one) tablet (0.4 mg total) under the tongue every 5 (five) minutes as needed for chest pain , if no relief after 3 doses call 911 ., Disp: 90 tablet, Rfl: 12 psyllium (METAMUCIL) 3.4 gram packet, Take 1 (one) packet by mouth daily Start: 12/20/19., Disp: 30packet, Rfl: 0 rosuvastatin (CRESTOR) 20 MG tablet, 20 mg daily ., Disp: , Rfl: tamsulosin (FLOMAX) 0.4 mg capsule, tamsulosin TAMSULOSIN HCL 0.4 MG CAPS One tablet by mouth [id number] TAMSULOSIN HCL [id number] Sebastián Dailey MD 06-15-2017 [facility] ([id number]), Disp: , Rfl: PMH/PSH/SH/ reviewed, no change except: Status post surgical intervention by Dr. Mora on 12/02/2019 12/05/2019 Patient was seen by rehab physician rehab evaluation in progress patient's left ankle is at risk because of right foot surgery and diabetic neuropathy in the left foot also 12/07/2019 patient is now in rehab Review of Systems: All systems were reviewed and negative except: Denies any fever chills no pain in the right leg and foot 12/06/2019 denies any fever chills or diarrhea 12/08/2019 Schulte had to be reinserted for urinary increase residual 12/11/2019 Dressing was changed by Dr. Mora on Wednesday there was some drainage culture was done there was some maceration culture result is normal chalino Dr. Mora's note was reviewed by me Medications Reviewed. Chart Reviewed. BP 136/83 Pulse (!) 102 Temp 97.5 F (36.4 C) (Oral) Resp 18 SpO2 93% Exam Findings: Constitutional: HENT: Pupils reactive head: No oral candidiasis Eyes: No icterus Neck: Supple Cardiovascular: Heart S1-S2 2 by systolic murmur present no S3 Murmur Pulmonary/Chest: Clear Abdominal: Soft Musculoskeletal: No calf tenderness on the right leg Neurological: Has diabetic neuropathy with Charcot is able to wiggle the toes Skin no redness or cellulitis noted on the plantar foot area Schulte: Patient does have a Schulte catheter followed by urology January 02 Dr. Izquierdo IV: Midline in the right arm has been removed other: External fixator in place no drainage noted on the dressing wound to be examined by podiatrytoday Pin sites without any bleeding The plantar foot wound looks excellent no cellulitis noted pin sites with no drainage the plantar foot wound looks almost healed up completely Zechariah bandage in place with no drainage Wound (Outpatient Only) 03/31/19 Foot Anterior;Right;Plantar (Active) Wound Image 01/12/2020 7:00 AM Wound Length (cm) 4 cm 01/12/2020 7:00 AM Wound Width (cm) 1 cm 01/12/2020 7:00 AM Wound Depth (cm) 0.4 cm 01/12/2020 7:00 AM Wound Surface Area (cm^2) 4 cm^2 01/12/2020 7:00 AM Wound Volume (cm^3) 1.6 cm^3 01/12/2020 7:00 AM Area % Change -60 01/12/2020 7:00 AM Volume % Change 0 01/12/2020 7:00 AM Tunneling Maximum Distance (cm) 0 cm 12/21/2019 8:00 AM Tunneling Position (o'clock) 0 12/21/2019 8:00 AM Undermining Maximum Distance (cm) 1 0 cm 12/21/2019 8:00 AM Undermining Starting Position (o'clock) 1 0 12/21/2019 8:00 AM Undermining Ending Position (o'clock) 1 0 12/21/2019 8:00 AM Wound Encounter Subsequent 12/21/2019 8:00 AM Wound Progress Improving 12/21/2019 8:00 AM Drainage Amount Scant 01/05/2020 1:17 PM Drainage Description Serosanguineous 01/05/2020 1:17 PM Odor None 01/05/2020 1:17 PM Wound Margin Attached to wound base 12/21/2019 8:00 AM Adherent Yellow Slough % 1-25% 01/05/2020 1:17 PM Moist Yellow Slough % None 12/21/2019 8:00 AM Dry Black Eschar % None 12/21/2019 8:00 AM Moist Black Eschar % None 12/21/2019 8:00 AM Epithelialization % 1-25% 01/05/2020 1:17 PM Granulation % Bright red;51-75% 01/05/2020 1:17 PM Exposed Structure None 12/21/2019 8:00 AM Wound Bed Characteristics Clean;Dry;Intact;Approximated 12/21/2019 8:00 AM Wound Closure Sutures 12/28/2019 8:15 AM Angeli-wound Assessment Temperature WNL;Edema 12/21/2019 8:00 AM Hemostasis Not applicable 12/21/2019 8:00 AM Cleansed Soap and water 01/05/2020 1:17 PM Primary Dressing Collagen with silver 01/05/2020 1:17 PM Secondary Dressing Gauze pad;Gauze roll;Dry gauze dressing 01/05/2020 1:17 PM Compression Dressing Zechariah wrap 01/05/2020 1:17 PM Wound 12/14/19 Pressure Injury Great Toe;Toe Anterior;Right (Active) Wound Image 01/12/2020 7:00 AM Wound Length (cm) 0.6 cm 01/12/2020 7:00 AM Wound Width (cm) 2 cm 01/12/2020 7:00 AM Wound Depth (cm) 0 cm 01/12/2020 7:00 AM Wound Surface Area (cm^2) 1.2 cm^2 01/12/2020 7:00 AM Wound Volume (cm^3) 0 cm^3 01/12/2020 7:00 AM Area % Change -33.33 01/12/2020 7:00 AM Tunneling Maximum Distance (cm) 0 cm 01/12/2020 7:00 AM Tunneling Position (o'clock) 0 01/12/2020 7:00 AM Tunneling Maximum Distance (cm) 0 cm 01/12/2020 7:00 AM Tunneling Position (o'clock) 0 01/12/2020 7:00 AM Undermining Maximum Distance (cm) 1 0 cm 01/12/2020 7:00 AM Undermining Starting Position (o'clock) 1 0 01/12/2020 7:00 AM Undermining Ending Position (o'clock) 1 0 01/12/2020 7:00 AM Undermining Maximum Distance (cm) 2 0 cm 01/12/2020 7:00 AM Undermining Starting Position (o'clock) 2 0 01/12/2020 7:00 AM Undermining Ending Position (o'clock) 2 0 01/12/2020 7:00 AM Wound Progress Improving 01/12/2020 7:00 AM State of Healing Eschar 01/12/2020 7:00 AM Non-staged Wound Description Eschar covered 01/12/2020 7:00 AM Drainage Amount None 01/12/2020 7:00 AM Odor None 01/12/2020 7:00 AM Wound Margin Attached to wound base 01/12/2020 7:00 AM Adherent Yellow Slough % None 01/12/2020 7:00 AM Moist Yellow Slough % None 01/12/2020 7:00 AM Dry Black Eschar % 76-100% 01/12/2020 7:00 AM Moist Black Eschar % None 01/12/2020 7:00 AM Epithelialization % 1-25% 01/12/2020 7:00 AM Granulation % None 01/12/2020 7:00 AM Exposed Structure None 01/12/2020 7:00 AM Wound Bed Characteristics Dry;Black 01/12/2020 7:00 AM Angeli-wound Assessment Temperature WNL;[place] 01/12/2020 7:00 AM Treatments Not Applicable 01/12/2020 7:00 AM Hemostasis Not applicable 12/21/2019 8:00 AM Cleansed Soap and water 01/12/2020 7:00 AM Primary Dressing Collagen with silver 12/28/2019 9:00 AM Secondary Dressing Dry gauze;Gauze roll;Gauze pad 01/05/2020 1:18 PM Compression Dressing Zechariah wrap 01/05/2020 1:18 PM Wound 01/12/20 3 Acute Abrasion(s) Third Toe Right;Medial (Active) Wound Image 01/12/2020 7:00 AM Wound Length (cm) 0.9 cm 01/12/2020 7:00 AM Wound Width (cm) 1 cm 01/12/2020 7:00 AM Wound Depth (cm) 0 cm 01/12/2020 7:00 AM Wound Surface Area (cm^2) 0.9 cm^2 01/12/2020 7:00 AM Wound Volume (cm^3) 0 cm^3 01/12/2020 7:00 AM Area % Change 0 01/12/2020 7:00 AM Laboratory and Additional Data Reviewed: Date: 01/12/2020 New labs/ results as of last note: 12/28/2019 CBC Auto Differential Order: [id number] - Part of Panel Order [id number] Status: Final result Visible to patient: No (Not Released) Next appt: 01/12/2020 at 07:45 AM in Wound Care (Alena Mora DPM) Dx: Acute osteomyelitis (HCC); Elevated C... Component Ref Range & Units 12d ago (12/28/19) 3wk ago (12/18/19) 4wk ago (12/12/19) 1mo ago (12/07/19) 1mo ago (12/05/19) 1mo ago (12/02/19) 1mo ago (12/01/19) WBC 4.50 - 11.00 K/mcL 4.66 6.38 4.12Low 6.95 7.98 9.43 8.56 RBC 4.50 - 5.90 M/mcL 4.42Low 4.44Low 4.13Low 4.23Low 4.22Low 4.29Low 4.09Low Hemoglobin 13.5 - 17.5 g/dL 11.6Low 11.7Low 10.8Low 11.3Low 11.4Low 11.5Low 11.2Low Hematocrit 41.0 - 53.0 % 38.0Low 37.8Low 35.6Low 36.8Low 36.3Low 36.7Low 35.6Low MCV 80.0 - 100.0 fL 86.0 85.1 86.2 87.0 86.0 85.5 87.0 MCH 26.0 - 34.0 pg 26.2 26.4 26.2 26.7 27.0 26.8 27.4 MCHC 31.0 - 37.0 g/dL 30.5Low 31.0 30.3Low 30.7Low 31.4 31.3 31.5 Platelets 150 - 400 K/mcL 182 323 203 210 228 235 232 Comprehensive Metabolic Panel Order: [id number] Status: Final result Visible to patient: No (Not Released) Next appt: 01/12/2020 at 07:45 AM in Wound Care (Alena Mora DPM) Dx: Acute osteomyelitis (HCC); Elevated C... Component Ref Range & Units 12d ago (12/28/19) 3wk ago (12/18/19) 4wk ago (12/12/19) 1mo ago (12/07/19) 1mo ago (12/05/19) 1mo ago (12/02/19) 1mo ago (12/01/19) Sodium 135 - 145 mmol/L 142 142 140 138 139 137 140 Potassium 3.5 - 5.1 mmol/L 4.3 4.5 4.3 3.9 4.1 4.7 5.0 Chloride 98 - 108 mmol/L 109High 106 106 104 104 102 106 Bicarbonate 21 - 32 mmol/L 31 25 30 29 30 30 30 Anion Gap 10 - 20 mmol/L 6Low 16 8Low 9Low 9Low 10 9Low Glucose 65 - 99 mg/dL 135High 82 167High 243High 223High 256High 223High BUN 8 - 25 mg/dL 18 23 26High 17 19 19 22 Creatinine 0.50 - 1.30 mg/dL 0.71 1.04 0.89 0.86 0.86 1.06 0.98 eGFR >=60 mL/min/1.73 m2 104 79 95 96 96 78 85 BUN/Creatinine Ratio 10.0 - 20.0 25.4High 22.1High 29.2High 19.8 22.1High 17.9 22.4High Total Protein 6.0 - 8.0 g/dL 7.0 7.2 6.7 6.6 6.4 6.7 Albumin 3.2 - 5.2 g/dL 3.1Low 3.0Low 2.5Low 2.4Low 2.4Low 2.4Low Calcium 8.4 - 10.2 mg/dL 9.2 9.6 9.7 9.4 9.1 9.2 9.1 Alkaline Phosphatase 40 - 150 U/L 93 94 83 76 75 82 AST 0 - 45 U/L 16 20 35 28 20 32 Total Bilirubin 0.0 - 1.3 mg/dL 0.4 0.3 0.3 0.4 0.4 0.4 ALT 14 - 65 U/L 19 27 52 40 31 53 Resulting Agency Lab Lab Lab Lab Lab Lab Lab CRP, Inflammation Order: [id number] Status: Final result Visible to patient: No (Not Released) Next appt: 01/12/2020 at 07:45 AM in Wound Care (Alena Mora DPM) Dx: Acute osteomyelitis (HCC); Elevated C... Component Ref Range & Units 12d ago (12/28/19) 3wk ago (12/18/19) 4wk ago (12/12/19) 1mo ago (12/05/19) 1mo ago (12/02/19) 1mo ago (11/27/19) CRP(Inflammation) <=10.0 mg/L 6.4 18.7High 52.4High 85.3High 76.1High 69.0High Sedimentation Rate Order: [id number] Status: Final result Visible to patient: No (Not Released) Next appt: 01/12/2020 at 07:45 AM in Wound Care (Alena Mora DPM) Dx: Acute osteomyelitis (HCC); Elevated C... Component Ref Range & Units 12d ago (12/28/19) 3wk ago (12/18/19) 4wk ago (12/12/19) 1mo ago (12/05/19) 1mo ago (12/02/19) 1mo ago (11/27/19) Sed Rate 0 - 20 mm/hr 33High 72High 91High 85High 93High 94High Update from previous note Current Antibiotic: Doxycycline 100 mg PO BID for 6 weeks - Start 01/03/2020 Previous Antibiotic: Merrem 1,000 mg IV every 12 Hours until January 02, 2020 ([facility]) Rocephin 2 gm IV every 24 Hours Ancef 2,000 mg IV every 8 Hours Pre/Post Procedure Dressings: Per Dr. Mora Current culture: 12/28/2019 - Right foot, aerobic culture: Normal Chalino after 48 hours. Recent Cultures: 12/21/2019 - Right foot, aerobic - normal chalino after 48 hours 12/21/2019 - Right foot, anaerobic: No anaerobic growth at 2 days. 12/10/2019 Right Foot Wound Aerobic Culture: Normal Chal[place] After 48 Hours. Final 12/10/2019 Right foot wound, anaerobic culture: No anaerobic growth at 2 days. Final 12/08/2019 Urine Aerobic Culture: No Growth (<1,000 CFU/mL). Final. 12/07/2019 Urine Aerobic Culture on arrival to Nursing Rehab Unit: No Growth (<1,000 CFU/mL). Final. 12/02/2019 Right Foot Tissue Aerobic Culture: Normal Chal[place] After 48 Hours. Final. 12/02/2019 Right Foot Tissue AFB Culture: No Acid Fast Bacilli Seen. Preliminary. 12/02/2019 Right Foot Tissue Anaerobic Culture: No Anaerobic Growth at 2 Days. Final. 12/02/2019 Right Foot Tissue Fungus Culture: No fungus isolated at 4 weeks. Final. 12/01/2019 Blood Culture #1: No Growth After 5 Days. Final. 12/01/2019 Blood Culture #2: No Growth After 5 Days. Final. 11/30/2019 Right Foot Wound Aerobic Culture: Normal Chalino After 48 Hours. Final. 11/21/2019 Left Leg Wound Aerobic Culture: Normal Chalino After 48 Hours. Final. 11/20/2019 Right Foot Tissue Aerobic Culture: Moderate Growth Enterobacter cloacae complex, S=Youssef Sensitive. Final. 11/20/2019 Right Foot Tissue Anaerobic Culture: No Anaerobic Growth at 2 Days. Final. 11/20/2019 Right Foot Bone Aerobic Culture: Light Growth Enterobacter Cloacae Complex, S=Youssef Sensitive. Final. 11/20/2019 Right Foot Bone Anaerobic Culture: No Anaerobic Growth at 2 Days. Final Date: 12/28/2019 New labs/ results as of last note: 12/21/2019 Labs unable to be drawn by Home Health nurse 12/25/2019 I have personally reviewed all labs and other results Labs: Current Culture: 12/21/2019 - Right foot, aerobic - normal chalino after 48 hours 12/21/2019 - Right foot, anaerobic: No anaerobic growth at 2 days. Update from previous note Current Antibiotics: Merrem 1,000 mg IV every 12 Hours until January 02, 2020 ([facility]) Previous Antibiotic: Rocephin 2 gm IV every 24 Hours Ancef 2,000 mg IV every 8 Hours Pre/Post Procedure Dressings: Per Dr. Mora Recent Cultures: 12/10/2019 Right Foot Wound Aerobic Culture: Normal Chalino After 48 Hours. Final 12/10/2019 Right foot wound, anaerobic culture: No anaerobic growth at 2 days. Final 12/08/2019 Urine Aerobic Culture: No Growth (<1,000 CFU/mL). Final. 12/07/2019 Urine Aerobic Culture on arrival to Nursing Rehab Unit: No Growth (<1,000 CFU/mL). Final. 12/02/2019 Right Foot Tissue Aerobic Culture: Normal Chal[place] After 48 Hours. Final. 12/02/2019 Right Foot Tissue AFB Culture: No Acid Fast Bacilli Seen. Preliminary. 12/02/2019 Right Foot Tissue Anaerobic Culture: No Anaerobic Growth at 2 Days. Final. 12/02/2019 Right Foot Tissue Fungus Culture: Fungal Culture in Progress. Preliminary. 12/01/2019 Blood Culture #1: No Growth After 5 Days. Final. 12/01/2019 Blood Culture #2: No Growth After 5 Days. Final. 11/30/2019 Right Foot Wound Aerobic Culture: Normal Chalino After 48 Hours. Final. 11/21/2019 Left Leg Wound Aerobic Culture: Normal Chalino After 48 Hours. Final. 11/20/2019 Right Foot Tissue Aerobic Culture: Moderate Growth Enterobacter cloacae complex, S=Youssef Sensitive. Final. 11/20/2019 Right Foot Tissue Anaerobic Culture: No Anaerobic Growth at 2 Days. Final. 11/20/2019 Right Foot Bone Aerobic Culture: Light Growth Enterobacter Cloacae Complex, S=Youssef Sensitive. Final. 11/20/2019 Right Foot Bone Anaerobic Culture: No Anaerobic Growth at 2 Days. Final Date: 12/21/2019 No new labs/ results as of last note: 12/18/2019 Update from previous note Current Antibiotics: Merrem 1,000 mg IV every 12 Hours until January 02, 2020 ([facility]) Previous Antibiotic: Rocephin 2 gm IV every 24 Hours Ancef 2,000 mg IV every 8 Hours Pre/Post Procedure Dressings: Per Dr. Mora Current Cultures: 12/10/2019 Right Foot Wound Aerobic Culture: Normal Chalino After 48 Hours. Final 12/10/2019 Right foot wound, anaerobic culture: No anaerobic growth at 2 days. Final 12/08/2019 Urine Aerobic Culture: No Growth (<1,000 CFU/mL). Final. 12/07/2019 Urine Aerobic Culture on arrival to Nursing Rehab Unit: No Growth (<1,000 CFU/mL). Final. 12/02/2019 Right Foot Tissue Aerobic Culture: Normal Chal[place] After 48 Hours. Final. 12/02/2019 Right Foot Tissue AFB Culture: No Acid Fast Bacilli Seen. Preliminary. 12/02/2019 Right Foot Tissue Anaerobic Culture: No Anaerobic Growth at 2 Days. Final. 12/02/2019 Right Foot Tissue Fungus Culture: Fungal Culture in Progress. Preliminary. 12/01/2019 Blood Culture #1: No Growth After 5 Days. Final. 12/01/2019 Blood Culture #2: No Growth After 5 Days. Final. 11/30/2019 Right Foot Wound Aerobic Culture: Normal Chalino After 48 Hours. Final. 11/21/2019 Left Leg Wound Aerobic Culture: Normal Chalino After 48 Hours. Final. 11/20/2019 Right Foot Tissue Aerobic Culture: Moderate Growth Enterobacter cloacae complex, S=Youssef Sensitive. Final. 11/20/2019 Right Foot Tissue Anaerobic Culture: No Anaerobic Growth at 2 Days. Final. 11/20/2019 Right Foot Bone Aerobic Culture: Light Growth Enterobacter Cloacae Complex, S=Youssef Sensitive. Final. 11/20/2019 Right Foot Bone Anaerobic Culture: No Anaerobic Growth at 2 Days. Final Date: 12/19/2019 No new labs/results as of last note Update from previous note Tmax: 98.5 Urine Output: 2400 Stool: X1 Current Antibiotics: Merrem 1,000 mg IV every 12 Hours until January 02, 2020 Previous Antibiotic: Rocephin 2 gm IV every 24 Hours Ancef 2,000 mg IV every 8 Hours Pre/Post Procedure Dressings: Per Dr. Mora I have personally reviewed the labs and results Test results Laboratory and Additional Data Reviewed: Labs to de drawn every Wednesday (CBC, CMP, Sed Rate, CRP) Current Cultures: 12/10/2019 Right Foot Wound Aerobic Culture: Normal Chalino After 48 Hours. Final 12/10/2019 Right foot wound, anaerobic culture: No anaerobic growth at 2 days. Final 12/08/2019 Urine Aerobic Culture: No Growth (<1,000 CFU/mL). Final. 12/07/2019 Urine Aerobic Culture on arrival to Nursing Rehab Unit: No Growth (<1,000 CFU/mL). Final. 12/02/2019 Right Foot Tissue Aerobic Culture: Normal Chalino After 48 Hours. Final. 12/02/2019 Right Foot Tissue AFB Culture: No Acid Fast Bacilli Seen. Preliminary. 12/02/2019 Right Foot Tissue Anaerobic Culture: No Anaerobic Growth at 2 Days. Final. 12/02/2019 Right Foot Tissue Fungus Culture: Fungal Culture in Progress. Preliminary. 12/01/2019 Blood Culture #1: No Growth After 5 Days. Final. 12/01/2019 Blood Culture #2: No Growth After 5 Days. Final. 11/30/2019 Right Foot Wound Aerobic Culture: Normal Chalino After 48 Hours. Final. 11/21/2019 Left Leg Wound Aerobic Culture: Normal Chalino After 48 Hours. Final. 11/20/2019 Right Foot Tissue Aerobic Culture: Moderate Growth Enterobacter cloacae complex, S=Youssef Sensitive. Final. 11/20/2019 Right Foot Tissue Anaerobic Culture: No Anaerobic Growth at 2 Days. Final. 11/20/2019 Right Foot Bone Aerobic Culture: Light Growth Enterobacter Cloacae Complex, S=Youssef Sensitive. Final. 11/20/2019 Right Foot Bone Anaerobic Culture: No Anaerobic Growth at 2 Days. Final Date: 12/18/2019 No new labs/results as of last note Update from previous note Tmax: 98.1 Urine Output: 3950 Stool: not recorded Current Antibiotics: Merrem 1,000 mg IV every 12 Hours Previous Antibiotic: Rocephin 2 gm IV every 24 Hours Ancef 2,000 mg IV every 8 Hours Pre/Post Procedure I have personally reviewed the labs and results Test results Laboratory and Additional Data Reviewed: Current Cultures: 12/10/2019 Right Foot Wound Aerobic Culture: Normal Chalino After 48 Hours. Final 12/10/2019 Right foot wound, anaerobic culture: No anaerobic growth at 2 days. Final 12/08/2019 Urine Aerobic Culture: No Growth (<1,000 CFU/mL). Final. 12/07/2019 Urine Aerobic Culture on arrival to Nursing Rehab Unit: No Growth (<1,000 CFU/mL). Final. 12/02/2019 Right Foot Tissue Aerobic Culture: Normal Chal[place] After 48 Hours. Final. 12/02/2019 Right Foot Tissue AFB Culture: No Acid Fast Bacilli Seen. Preliminary. 12/02/2019 Right Foot Tissue Anaerobic Culture: No Anaerobic Growth at 2 Days. Final. 12/02/2019 Right Foot Tissue Fungus Culture: Fungal Culture in Progress. Preliminary. 12/01/2019 Blood Culture #1: No Growth After 5 Days. Final. 12/01/2019 Blood Culture #2: No Growth After 5 Days. Final. 11/30/2019 Right Foot Wound Aerobic Culture: Normal Chalino After 48 Hours. Final. 11/21/2019 Left Leg Wound Aerobic Culture: Normal Chal[place] After 48 Hours. Final. 11/20/2019 Right Foot Tissue Aerobic Culture: Moderate Growth Enterobacter cloacae complex, S=Youssef Sensitive. Final. 11/20/2019 Right Foot Tissue Anaerobic Culture: No Anaerobic Growth at 2 Days. Final. 11/20/2019 Right Foot Bone Aerobic Culture: Light Growth Enterobacter Cloacae Complex, S=Youssef Sensitive. Final. 11/20/2019 Right Foot Bone Anaerobic Culture: No Anaerobic Growth at 2 Days. Final Date: 12/15/2019 New labs/results as of last note Update from previous note Tmax: 98.7 Urine Output: 1900 Stool: not recorded Current Antibiotics: Merrem 1,000 mg IV every 12 Hours Previous Antibiotic: Rocephin 2 gm IV every 24 Hours Ancef 2,000 mg IV every 8 Hours Pre/Post Procedure I have personally reviewed the labs and results Test results Laboratory and Additional Data Reviewed: Current Cultures: 12/10/2019 Right Foot Wound Aerobic Culture: Normal Chal[place] After 48 Hours. Final 12/10/2019 Right foot wound, anaerobic culture: No anaerobic growth at 2 days. Final 12/08/2019 Urine Aerobic Culture: No Growth (<1,000 CFU/mL). Final. 12/07/2019 Urine Aerobic Culture on arrival to Nursing Rehab Unit: No Growth (<1,000 CFU/mL). Final. 12/02/2019 Right Foot Tissue Aerobic Culture: Normal Chalino After 48 Hours. Final. 12/02/2019 Right Foot Tissue AFB Culture: No Acid Fast Bacilli Seen. Preliminary. 12/02/2019 Right Foot Tissue Anaerobic Culture: No Anaerobic Growth at 2 Days. Final. 12/02/2019 Right Foot Tissue Fungus Culture: Fungal Culture in Progress. Preliminary. 12/01/2019 Blood Culture #1: No Growth After 5 Days. Final. 12/01/2019 Blood Culture #2: No Growth After 5 Days. Final. 11/30/2019 Right Foot Wound Aerobic Culture: Normal Chal[place] After 48 Hours. Final. 11/21/2019 Left Leg Wound Aerobic Culture: Normal Chalino After 48 Hours. Final. 11/20/2019 Right Foot Tissue Aerobic Culture: Moderate Growth Enterobacter cloacae complex, S=Youssef Sensitive. Final. 11/20/2019 Right Foot Tissue Anaerobic Culture: No Anaerobic Growth at 2 Days. Final. 11/20/2019 Right Foot Bone Aerobic Culture: Light Growth Enterobacter Cloacae Complex, S=Youssef Sensitive. Final. 11/20/2019 Right Foot Bone Anaerobic Culture: No Anaerobic Growth at 2 Days. Final Date: 12/14/2019 New labs/ results as of last note: 12/12/2019 T-Max: 98.6 Output: Urine 2150 ml Stool not recorded Current Antibiotics: Merrem 1,000 mg IV every 12 Hours Previous Antibiotic: Rocephin 2 gm IV every 24 Hours Ancef 2,000 mg IV every 8 Hours Pre/Post Procedure I have personally reviewed the labs and results Test results Laboratory and Additional Data Reviewed: Current Cultures: 12/10/2019 Right Foot Wound Aerobic Culture: Normal Chal[place] After 48 Hours. Final 12/10/2019 Right foot wound, anaerobic culture: No anaerobic growth at 2 days. Final 12/08/2019 Urine Aerobic Culture: No Growth (<1,000 CFU/mL). Final. 12/07/2019 Urine Aerobic Culture on arrival to Nursing Rehab Unit: No Growth (<1,000 CFU/mL). Final. 12/02/2019 Right Foot Tissue Aerobic Culture: Normal Chalino After 48 Hours. Final. 12/02/2019 Right Foot Tissue AFB Culture: No Acid Fast Bacilli Seen. Preliminary. 12/02/2019 Right Foot Tissue Anaerobic Culture: No Anaerobic Growth at 2 Days. Final. 12/02/2019 Right Foot Tissue Fungus Culture: Fungal Culture in Progress. Preliminary. 12/01/2019 Blood Culture #1: No Growth After 5 Days. Final. 12/01/2019 Blood Culture #2: No Growth After 5 Days. Final. 11/30/2019 Right Foot Wound Aerobic Culture: Normal Chalino After 48 Hours. Final. 11/21/2019 Left Leg Wound Aerobic Culture: Normal Chalino After 48 Hours. Final. 11/20/2019 Right Foot Tissue Aerobic Culture: Moderate Growth Enterobacter cloacae complex, S=Youssef Sensitive. Final. 11/20/2019 Right Foot Tissue Anaerobic Culture: No Anaerobic Growth at 2 Days. Final. 11/20/2019 Right Foot Bone Aerobic Culture: Light Growth Enterobacter Cloacae Complex, S=Youssef Sensitive. Final. 11/20/2019 Right Foot Bone Anaerobic Culture: No Anaerobic Growth at 2 Days. Final Update from previous note Date: 12/12/2019 New labs/results as of last note Update from previous note Tmax: 99.2 Urine Output: 1600 Stool: not recorded Current Antibiotics: Merrem 1,000 mg IV every 12 Hours Previous Antibiotic: Rocephin 2 gm IV every 24 Hours Ancef 2,000 mg IV every 8 Hours Pre/Post Procedure I have personally reviewed the labs and results Test results Laboratory and Additional Data Reviewed: Labs: CMP 12/12/2019 06:11 Glucose: 167 BUN: 26 Creatinine: 0.89 Sodium: 140 Potassium: 4.3 Total Protein: 6.7 Albumin: 2.5 Alk Phos: 83 AST: 35 ALT: 52 Total Bilirubin: 0.3 CBC 12/12/2019 06:11 WBC: 4.12 RBC: 4.13 Hgb: 10.8 Hct: 35.6 Platelets: 203 Lymphocytes Abs: 0.66 CRP 12/12/2019 06:11 52.4 Current Cultures: 12/10/2019 Right Foot Wound Aerobic Culture: Normal Chalino After 24 Hours. Preliminary. 12/08/2019 Urine Aerobic Culture: No Growth (<1,000 CFU/mL). Final. 12/07/2019 Urine Aerobic Culture on arrival to Nursing Rehab Unit: No Growth (<1,000 CFU/mL). Final. 12/02/2019 Right Foot Tissue Aerobic Culture: Normal Chal[place] After 48 Hours. Final. 12/02/2019 Right Foot Tissue AFB Culture: No Acid Fast Bacilli Seen. Preliminary. 12/02/2019 Right Foot Tissue Anaerobic Culture: No Anaerobic Growth at 2 Days. Final. 12/02/2019 Right Foot Tissue Fungus Culture: Fungal Culture in Progress. Preliminary. 12/01/2019 Blood Culture #1: No Growth After 5 Days. Final. 12/01/2019 Blood Culture #2: No Growth After 5 Days. Final. 11/30/2019 Right Foot Wound Aerobic Culture: Normal Chalino After 48 Hours. Final. 11/21/2019 Left Leg Wound Aerobic Culture: Normal Chal[place] After 48 Hours. Final. 11/20/2019 Right Foot Tissue Aerobic Culture: Moderate Growth Enterobacter cloacae complex, S=Youssef Sensitive. Final. 11/20/2019 Right Foot Tissue Anaerobic Culture: No Anaerobic Growth at 2 Days. Final. 11/20/2019 Right Foot Bone Aerobic Culture: Light Growth Enterobacter Cloacae Complex, S=Youssef Sensitive. Final. 11/20/2019 Right Foot Bone Anaerobic Culture: No Anaerobic Growth at 2 Days. Final. Date: 12/11/2019 New labs/results as of last note Update from previous note Tmax: 98.7 Urine Output: 2500 Stool: X1 Current Antibiotics: Rocephin 2 gm IV every 24 Hours until 01/02/2020 Previous Antibiotic: Ancef 2,000 mg IV every 8 Hours Pre/Post Procedure I have personally reviewed the labs and results Test results Laboratory and Additional Data Reviewed: U/A 12/08/2019 Glucose: 150 Blood: Small WBC: 7 Bacteria: Rare Labs: Vitamin D, Total 12/07/2019 04:55 16 B12/Folate 12/07/2019 04:55 B12: 828 Folate: >20.0 Ferritin 12/07/2019 04:55 211 Iron 12/07/2019 04:55 30 CMP 12/07/2019 04:55 Glucose: 243 BUN: 17 Creatinine: 0.86 Sodium: 138 Potassium: 3.9 Total Protein: 6.6 Albumin: 2.4 Alk Phos: 76 AST: 28 ALT: 40 Total Bilirubin: 0.4 CBC 12/07/2019 04:54 WBC: 6.95 Hgb: 11.3 Hct: 36.8 Platelets: 210 Lymphocytes Abs: 0.64 CRP 12/05/2019 07:58 85.3 U/A 12/07/2019 Protein: 30 Glucose: >=500 Blood: Small Leukocyte Esterase: Trace Renal Epithelial: <1 Current Cultures: 12/10/2019 Right Foot Wound Aerobic Culture: Rare WBC. Rare Epithelial Cells. No Organisms Seen. Preliminary. 12/08/2019 Urine Aerobic Culture: No Growth (<1,000 CFU/mL). Final. 12/07/2019 Urine Aerobic Culture on arrival to Nursing Rehab Unit: No Growth (<1,000 CFU/mL). Final. 12/02/2019 Right Foot Tissue Aerobic Culture: Normal Chalino After 48 Hours. Final. 12/02/2019 Right Foot Tissue AFB Culture: No Acid Fast Bacilli Seen. Preliminary. 12/02/2019 Right Foot Tissue Anaerobic Culture: No Anaerobic Growth at 2 Days. Final. 12/02/2019 Right Foot Tissue Fungus Culture: Fungal Culture in Progress. Preliminary. 12/01/2019 Blood Culture #1: No Growth After 5 Days. Final. 12/01/2019 Blood Culture #2: No Growth After 5 Days. Final. 11/30/2019 Right Foot Wound Aerobic Culture: Normal Chal[place] After 48 Hours. Final. 11/21/2019 Left Leg Wound Aerobic Culture: Normal Chal[place] After 48 Hours. Final. 11/20/2019 Right Foot Tissue Aerobic Culture: Moderate Growth Enterobacter cloacae complex, S=Youssef Sensitive. Final. 11/20/2019 Right Foot Tissue Anaerobic Culture: No Anaerobic Growth at 2 Days. Final. 11/20/2019 Right Foot Bone Aerobic Culture: Light Growth Enterobacter Cloacae Complex, S=Youssef Sensitive. Final. 11/20/2019 Right Foot Bone Anaerobic Culture: No Anaerobic Growth at 2 Days. Final. Date: 12/08/2019 New labs/results as of last note Update from previous note Tmax: 99.2 Urine Output: 4950 Stool: not recorded Current Antibiotics: Rocephin 2 gm IV every 24 Hours until 01/02/2020 Previous Antibiotic: Ancef 2,000 mg IV every 8 Hours Pre/Post Procedure I have personally reviewed the labs and results Test results Laboratory and Additional Data Reviewed: U/A 12/08/2019 Glucose: 150 Blood: Small WBC: 7 Bacteria: Rare Labs: Vitamin D, Total 12/07/2019 04:55 16 B12/Folate 12/07/2019 04:55 B12: 828 Folate: >20.0 Ferritin 12/07/2019 04:55 211 Iron 12/07/2019 04:55 30 CMP 12/07/2019 04:55 Glucose: 243 BUN: 17 Creatinine: 0.86 Sodium: 138 Potassium: 3.9 Total Protein: 6.6 Albumin: 2.4 Alk Phos: 76 AST: 28 ALT: 40 Total Bilirubin: 0.4 CBC 12/07/2019 04:54 WBC: 6.95 Hgb: 11.3 Hct: 36.8 Platelets: 210 Lymphocytes Abs: 0.64 CRP 12/05/2019 07:58 85.3 U/A 12/07/2019 Protein: 30 Glucose: >=500 Blood: Small Leukocyte Esterase: Trace Renal Epithelial: <1 Current Cultures: 12/07/2019 Urine Aerobic Culture on arrival to Nursing Rehab Unit: No Growth, Incubation Continued.Preliminary. 12/02/2019 Right Foot Tissue Aerobic Culture: Normal Chalino After 48 Hours. Final. 12/02/2019 Right Foot Tissue AFB Culture: No Acid Fast Bacilli Seen. Preliminary. 12/02/2019 Right Foot Tissue Anaerobic Culture: No Anaerobic Growth at 2 Days. Final. 12/02/2019 Right Foot Tissue Fungus Culture: Fungal Culture in Progress. Preliminary. 12/01/2019 Blood Culture #1: No Growth After 5 Days. Final. 12/01/2019 Blood Culture #2: No Growth After 5 Days. Final. 11/30/2019 Right Foot Wound Aerobic Culture: Normal Chalino After 48 Hours. Final. 11/21/2019 Left Leg Wound Aerobic Culture: Normal Chalino After 48 Hours. Final. 11/20/2019 Right Foot Tissue Aerobic Culture: Moderate Growth Enterobacter cloacae complex, S=Youssef Sensitive. Final. 11/20/2019 Right Foot Tissue Anaerobic Culture: No Anaerobic Growth at 2 Days. Final. 11/20/2019 Right Foot Bone Aerobic Culture: Light Growth Enterobacter Cloacae Complex, S=Youssef Sensitive. Final. 11/20/2019 Right Foot Bone Anaerobic Culture: No Anaerobic Growth at 2 Days. Final. Radiology: Left Ankle X-Ray 12/07/2019 1. A new screw internally fixes the base of the 5th metatarsal to near anatomic alignment, however this screw is broken/fractured. 2. 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 Lateral subluxation of the 2nd through 5th metatarsal bases is again noted, as well as pes planus deformity. 3. Milder arthritis is noted in the tibiotalar joint and subtalar joint. 4. Large calcaneal enthesophytes are noted at the insertion sites of the plantar fascia and Achilles tendon. 5. No acute fracture, or other acute bony abnormality is seen. Date: 12/07/2019 New labs/results as of last note Update from previous note Tmax: 99.1 Urine Output: 1800 Stool: not recorded Current Antibiotics: Rocephin 2 gm IV every 24 Hours until 01/02/2020 Previous Antibiotic: Ancef 2,000 mg IV every 8 Hours Pre/Post Procedure I have personally reviewed the labs and results Test results Laboratory and Additional Data Reviewed: Labs: Vitamin D, Total 12/07/2019 04:55 16 B12/Folate 12/07/2019 04:55 B12: 828 Folate: >20.0 Ferritin 12/07/2019 04:55 211 Iron 12/07/2019 04:55 30 CMP 12/07/2019 04:55 Glucose: 243 BUN: 17 Creatinine: 0.86 Sodium: 138 Potassium: 3.9 Total Protein: 6.6 Albumin: 2.4 Alk Phos: 76 AST: 28 ALT: 40 Total Bilirubin: 0.4 CBC 12/07/2019 04:54 WBC: 6.95 Hgb: 11.3 Hct: 36.8 Platelets: 210 Lymphocytes Abs: 0.64 CRP 12/05/2019 07:58 85.3 U/A 12/07/2019 Protein: 30 Glucose: >=500 Blood: Small Leukocyte Esterase: Trace Renal Epithelial: <1 Current Cultures: 12/02/2019 Right Foot Tissue Aerobic Culture: Normal Chalino After 48 Hours. Final. 12/02/2019 Right Foot Tissue AFB Culture: No Acid Fast Bacilli Seen. Preliminary. 12/02/2019 Right Foot Tissue Anaerobic Culture: No Anaerobic Growth at 2 Days. Final. 12/02/2019 Right Foot Tissue Fungus Culture: Fungal Culture in Progress. Preliminary. 12/01/2019 Blood Culture #1: No Growth After 5 Days. Final. 12/01/2019 Blood Culture #2: No Growth After 5 Days. Final. 11/30/2019 Right Foot Wound Aerobic Culture: Normal Chalino After 48 Hours. Final. 11/21/2019 Left Leg Wound Aerobic Culture: Normal Chalino After 48 Hours. Final. 11/20/2019 Right Foot Tissue Aerobic Culture: Moderate Growth Enterobacter cloacae complex, S=Youssef Sensitive. Final. 11/20/2019 Right Foot Tissue Anaerobic Culture: No Anaerobic Growth at 2 Days. Final. 11/20/2019 Right Foot Bone Aerobic Culture: Light Growth Enterobacter Cloacae Complex, S=Youssef Sensitive. Final. 11/20/2019 Right Foot Bone Anaerobic Culture: No Anaerobic Growth at 2 Days. Final. Date: 12/06/2019 New labs/results as of last note Update from previous note Tmax: 99 Urine Output: 1250 Stool: not recorded Current Antibiotics: Rocephin 2 gm IV every 24 Hours until 01/02/2020 Previous Antibiotic: Ancef 2,000 mg IV every 8 Hours Pre/Post Procedure I have personally reviewed the labs and results Test results Laboratory and Additional Data Reviewed: Labs: CBC 12/05/2019 07:58 WBC: 7.98 Hgb: 11.4 Hct: 36.3 Platelets: 228 Lymphocytes Abs: 0.52 CMP 12/05/2019 07:58 Glucose: 223 BUN: 19 Creatinine: 0.86 Sodium: 139 Potassium: 4.1 Total Protein: 6.4 Albumin: 2.4 Alk Phos: 75 AST: 20 ALT: 31 Total Bilirubin: 0.4 CRP 12/05/2019 07:58 85.3 Current Cultures: 12/02/2019 Right Foot Tissue Aerobic Culture: Normal Chalino After 48 Hours. Final. 12/02/2019 Right Foot Tissue AFB Culture: No Acid Fast Bacilli Seen. Preliminary. 12/02/2019 Right Foot Tissue Anaerobic Culture: No Anaerobic Growth at 2 Days. Final. 12/02/2019 Right Foot Tissue Fungus Culture: Fungal Culture in Progress. Preliminary. 12/01/2019 Blood Culture #1: No Growth After 5 Days. Final. 12/01/2019 Blood Culture #2: No Growth After 5 Days. Final. 11/30/2019 Right Foot Wound Aerobic Culture: Normal Chalino After 48 Hours. Final. 11/21/2019 Left Leg Wound Aerobic Culture: Normal Chalino After 48 Hours. Final. 11/20/2019 Right Foot Tissue Aerobic Culture: Moderate Growth Enterobacter cloacae complex, S=Youssef Sensitive. Final. 11/20/2019 Right Foot Tissue Anaerobic Culture: No Anaerobic Growth at 2 Days. Final. 11/20/2019 Right Foot Bone Aerobic Culture: Light Growth Enterobacter Cloacae Complex, S=Youssef Sensitive. Final. 11/20/2019 Right Foot Bone Anaerobic Culture: No Anaerobic Growth at 2 Days. Final. Pathology: 12/02/2019 A. Soft tissue, Right Foot, excision: Non-specific ulcer. Date: 12/05/2019 New labs/results as of last note Update from previous note Tmax: 98.8 Urine Output: 2900 Stool: not recorded Current Antibiotics: Rocephin 2 gm IV every 24 Hours Previous Antibiotic: Ancef 2,000 mg IV every 8 Hours Pre/Post Procedure I have personally reviewed the labs and results Test results Laboratory and Additional Data Reviewed: Labs: CBC 12/05/2019 07:58 WBC: 7.98 Hgb: 11.4 Hct: 36.3 Platelets: 228 Lymphocytes Abs: 0.52 CMP 12/05/2019 07:58 Glucose: 223 BUN: 19 Creatinine: 0.86 Sodium: 139 Potassium: 4.1 Total Protein: 6.4 Albumin: 2.4 Alk Phos: 75 AST: 20 ALT: 31 Total Bilirubin: 0.4 CRP 12/05/2019 07:58 85.3 Current Cultures: 12/02/2019 Right Foot Tissue Aerobic Culture: Normal Chalino After 48 Hours. Final. 12/02/2019 Right Foot Tissue AFB Culture: No Acid Fast Bacilli Seen. Preliminary. 12/02/2019 Right Foot Tissue Anaerobic Culture: No Anaerobic Growth at 2 Days. Final. 12/02/2019 Right Foot Tissue Fungus Culture: Fungal Culture in Progress. Preliminary. 12/01/2019 Blood Culture #1: No Growth After 48 Hours. Preliminary. 12/01/2019 Blood Culture #2: No Growth After 48 Hours. Preliminary. 11/30/2019 Right Foot Wound Aerobic Culture: Normal Chalino After 48 Hours. Final. 11/21/2019 Left Leg Wound Aerobic Culture: Normal Chalino After 48 Hours. Final. 11/20/2019 Right Foot Tissue Aerobic Culture: Moderate Growth Enterobacter cloacae complex, S=Youssef Sensitive. Final. 11/20/2019 Right Foot Tissue Anaerobic Culture: No Anaerobic Growth at 2 Days. Final. 11/20/2019 Right Foot Bone Aerobic Culture: Light Growth Enterobacter Cloacae Complex, S=Youssef Sensitive. Final. 11/20/2019 Right Foot Bone Anaerobic Culture: No Anaerobic Growth at 2 Days. Final. Current Antibiotics: Rocephin 2 gm IV every 24 Hours Previous Antibiotic: Ancef 2,000 mg IV every 8 Hours Pre/Post Procedure I have personally reviewed the labs and results Test results Laboratory and Additional Data Reviewed: Results from last 7 days Lab Units 12/01/19 0648 11/30/19 1245 11/29/19 0655 SODIUM mmol/L 140 140 142 POTASSIUM mmol/L 5.0 4.9 5.1 CHLORIDE mmol/L 106 105 107 BUN mg/dL 22 24 36* CREATININE mg/dL 0.98 0.94 1.12 GLUCOSE mg/dL 223* 127* 108* CALCIUM mg/dL 9.1 9.3 9.3 Results from last 7 days Lab Units 12/01/19 0635 11/30/19 1245 WBC K/mcL 8.56 8.72 HGB g/dL 11.2* 10.8* HCT % 35.6* 35.4* PLT K/mcL 232 243 Results from last 7 days Lab Units 11/30/19 1245 ALK PHOS U/L 67 BILIRUBIN TOTAL mg/dL 0.3 TOTAL PROTEIN g/dL 6.5 ALTR U/L 56 AST U/L 42 Current Cultures: 12/02/2019 Right Foot Tissue Aerobic Culture: Normal Chalino After 24 Hours. Preliminary. 12/02/2019 Right Foot Tissue AFB Culture: No Acid Fast Bacilli Seen. Preliminary. 12/01/2019 Blood Culture #1: No Growth After 48 Hours. Preliminary. 12/01/2019 Blood Culture #2: No Growth After 48 Hours. Preliminary. 11/30/2019 Right Foot Wound Aerobic Culture: Normal Chalino After 48 Hours. Final. 11/21/2019 Left Leg Wound Aerobic Culture: Normal Chalino After 48 Hours. Final. 11/20/2019 Right Foot Tissue Aerobic Culture: Moderate Growth Enterobacter cloacae complex, S=Youssef Sensitive. Final. 11/20/2019 Right Foot Tissue Anaerobic Culture: No Anaerobic Growth at 2 Days. Final. 11/20/2019 Right Foot Bone Aerobic Culture: Light Growth Enterobacter Cloacae Complex, S=Youssef Sensitive. Final. 11/20/2019 Right Foot Bone Anaerobic Culture: No Anaerobic Growth at 2 Days. Final. Recent Cultures: 05/30/2019 Right Foot Tissue Aerobic Culture: Normal Chalino After 48 Hours. Final. 05/30/2019 Right Foot Tissue Anaerobic Culture: No Anaerobic Growth at 2 Days. Final. 03/23/2019 Right Foot Wound Aerobic Culture: Heavy Growth Raoultella [place], R=Ampicillin, S=Remainder of panel. 03/09/2019 Right Foot Wound Aerobic Culture: Normal Chalino After 48 Hours. Final. 02/09/2019 Right Foot Wound Aerobic Culture: Normal Chalino After 48 Hours. Final. 01/19/2019 Right Toe Two Wound Aerobic Culture: Heavy Growth Enterobacter Cloacae Complex, S=Youssef Sensitive. Final. Radiology: Right Foot X-Ray 12/02/2019 Intraoperative fluoroscopy provided. Severe bony deformity of the foot as described. Please correlate with operative note. Chest X-Ray 11/23/2019 1. Right arm PICC line in place with tip in superior vena cava. 2. No acute pulmonary disease. 3. Cardiomegaly with evidence of prior open heart surgery. 4. No acute osseous abnormality Right Foot X-Ray 11/20/2019 IMPRESSION: Intraoperative fluoroscopy for localization during right foot and ankle reconstruction and fixation. Please see operative report for details. Left Ankle X-Ray Ordered 11/20/2019 Right Foot X-Ray 11/20/2019 FINDINGS: Two views of the right foot were obtained. There are advanced changes of Charcot arthropathy throughout the right midfoot which appears similar compared to prior examination. There are postsurgical changes of resection of the right 2nd toe proximal phalangeal head. IMPRESSION: 1. Advanced changes of Charcot arthropathy throughout the right midfoot which appear unchanged compared to prior examination. Chest AP/PA X-Ray 11/16/2019 1. No acute pulmonary disease. 2. Cardiomegaly, with evidence of prior open heart surgery. 3. Multilevel degenerative changes of the thoracic spine. MR Right Foot 05/19/2019 1. There is a superficial soft tissue ulcer again seen along the plantar aspect of the midfoot, butthere is no evidence of abscess or osteomyelitis in this region. 2. Stable appearance of the sequela of severe neuropathic arthropathy of the midfoot with collapse of the midfoot again seen resulting in a rocker bottom deformity. 3. A moderate amount of diffuse subcutaneous edema along the dorsum of the foot may be due to reactive edema or a cellulitis, but this is nonspecific. Right Foot X-Ray 04/28/2019 1. Soft tissue irregularity involving the plantar aspect of the foot likely representing the reported ulcer. No bony destruction to suggest osteomyelitis. 2. No evidence of radiopaque foreign body. 3. Stable deformity and degenerative changes involving the midfoot. Findings are consistent with Charcot joint. NM White Cell Scan Spot Limited 03/08/2017 FINDINGS: A focal area of intense abnormal white blood cell migration is noted central plantar aspect of the right foot corresponding to the area of the wound demonstrated radiographically. No other focus of white blood cell migration abnormality is evident within the right or left foot. IMPRESSION: Focal area of abnormal white blood cell migration at the plantar aspect central right foot may be at the wound itself or may be involving the bone with associated fracture as demonstrated radiographically. Anatomic detail is insufficient for differentiation between the two. Renal U/S 03/07/2017 IMPRESSION: Severe thickening of the urinary bladder wall. This could be due to outlet obstruction with hypertrophy of the wall. If there is no such history, this should be evaluated with cystoscopy. CVPS: Arterial Doppler: not on file Venous Doppler: not on file 2D Echo 11/23/2019 Moderate LV enlargement with LVH. Global systolic dysfunction with segmental features. LVEF 30% Elevated LV filling pressures RV is dilated with severe RV dysfunction Mild mitral annular calcification, mild thickening of the aortic valve without hemodynamically significant valvular disease There is a atrial level right to left shunt identified with saline contrast with free breathing andValsalva most likely via PFO LVEF unchanged from to previous echo from 2017 Surgeries: Please see above for surgical history Procedure: Right Foot I&D ADJUSTMENT EXTERNAL FIXATOR Date: 12/02/2019 Surgery: Alena Mora DPM Procedure: RIGHT FOOT RECONSTRUCTION WITH APPLICATION OF CIRCULAR STATIC EXTERNAL FIXATION Date: 11/20/2019 Surgeon: Alena Mora DPM Procedure: ARTHROPLASTY 2ND TOE RIGHT FOOT Date: 01/25/2019 Surgeon: Rosa M Robles DPM Pathology: not on file documented in this encounter* Richelle Chance, RN - 02/23/2020 9:07 AM EDT Gloves and mask worn while in room with patient. * Nelda Gilliam RN - 02/23/2020 7:47 AM EDT Surgical mask and gloves were worn while in this patient's room. 2pin sites have fluid-filled blisters present. The pin sites are closed and raised with redness.LPapst RN * Maria Isabel Awad MD - 02/23/2020 7:30 AM EDT 12/04/2019 Patient Name: Dyllan Huertas Admit Date: MR #: [id number] : 1960 Physicians: Rohit Aguilar MD (Family); No ref. provider found (Referring) Assessment and Plan: Number 1 November [id number] Impression Right foot ulcer status post surgical intervention Severe Charcot deformity status post surgical intervention Enterobacter cloaca infection and gram-negative infection see cultures below RaullTela which is a gram-negative Acute osteomyelitis bone culture on 11/20/2019+ for the same pathogen that was present in January 2019is Enterobacter cloaca pansensitive RAJINDER none on chart 11/24/2019 Osteomyelitis as bone culture is positive from 11/20/2019 for Enterobacter cloaca 11/30/2019 New drainage from the pin site Elevated sed rate Elevated CRP Osteomyelitis right foot 12/01/2019 Osteomyelitis right foot Delayed healing of the plantar foot postop wound Cellulitis of the foot 12/04/2019 Status post surgical intervention with incision and drainage by Dr. Mora on 12/02/2019 cultures now with normal chalino AFB and fungus negative 12/05/2019 Sed rate 85 CRP 85 Per rehab physician there is a risk for the left ankle issues especially with diabetic neuropathy in the left foot and he has had right foot surgery 12/06/2019 OR cultures negative elevated CRP could be just postop We will continue IV antibiotics as planned till January 01 Rocephin 2 g every 24 hours 12/11/2019 Right foot wound with some maceration drainage 12/12/2019 CRP improving 12/21/2019 Patient is home now last night he was having difficulty flushing the line PICC line not functioning well because the picc team Plantar foot wound no cellulitis no maceration pin sites look excellent 2019 Right foot wound postop healing remarkably cellulitis improved Patient completing treatment for acute osteomyelitis Enterobacter infection Minimal drainage at the incision site will culture today January 12, 2020 Right second toe and great toe superficial ulceration present Right plantar foot wound excellent with almost healing no drainage no redness Sed rate 33 last CRP 6.4 12/28/2019 much better than before last culture normal chalino from December 27 January 19, 2020 Osteomyelitis right foot Charcot with correction surgery done Postop wound with delayed healing January 26, 2020 Postop right plantar wound continues to improve Last culture normal chalino on December 27 last lab work was December 27 CRP 6.5 We will do CBC CMP sed rate CRP at next visit in the wound clinic orders are in the computer from I will see him in 2 weeks February 09, 2020 Patient almost completing 3 months of total antibiotic treatment was on antibiotics prior to that also Plantar foot postop wound has not healed up completely yet being debrided periodically by podiatry Plain x-ray was done on January 12, 2020 I looked at the film still shows significant destruction I do not know if you are seeing any fusion yet I will need to talk with podiatry on that CBC CMP sed rate CRP has been ordered results are still pending this is to decide the duration of antibiotic treatment February 16, 2020 Plantar foot wound is healed up completely CRP is normal Sed rate fluctuating some No evidence of cellulitis February 22 The frame has been removed on the right leg Plantar foot wound has healed up completely on the right foot Plan February 23, 2020 Continue doxycycline 100 mg p.o. per day till June 03 as suppressive treatment for gram-negative infection Enterobacter cloaca K and it will also cover some gram positives Dressings per Dr. Mora Return to see me and Dr. Mora in 2 weeks February 16, 2020 Doxycycline 100 mg p.o. daily till June 03 which is 6 months he may need to go up to 1 year because he did have prolonged infection with osteomyelitis of the right foot details per my previous dictation He has enough supply for now at least till the next visit Patient's external fixator to come out next week Return to see myself and Dr. Mora in the wound clinic in 2 weeks I have discussed with podiatry February 09, 2020 CBC CMP sed rate CRP today Doxycycline 100 mg p.o. daily suppressive treatment continued at least till March 03 for now I may need to go if I decide up to 6 months it would be till June 03 And if it is 1 year it will be till November 2020 It all depends on what podiatry sees on the x-rays and discusses with me what the rec needs would be I will discuss with Dr. Mora Return to see me and Dr. Mora in 2 weeks January 26, 2020 Doxycycline 100 mg p.o. once a day suppressive treatment Local dressings per Dr. Mora The least I would consider continuing the doxycycline would be up to February [address] Mora January 19, 2020 Patient has received 6 weeks of IV antibiotics Followed by 2 weeks of oral antibiotic Will decrease doxycycline to 100 mg p.o. once a day Dressings per Dr. Mora Revisit next week I have discussed with Dr. Mora January 12, 2020 Discontinue PICC line was done on January 01 Discontinue IV meropenem Doxycycline 100 g p.o. twice daily for 2 months I will give 30 days with 1 refill Local dressings per Dr. Mora Revisit 2 weeks for me with Dr. Mora 12/28/2019 Meropenem 1 g IV twice daily till January 01 which will be 6 weeks of treatment Labs could not be drawn at home because of difficulty for peripheral draw I did not want him to drive from the line because of risk of clotting We will draw them here today After that we will give him doxycycline 100 mg p.o. twice daily for 6 weeks to make 3 months treatment 12/21/2019 IV meropenem 1 g twice daily till January 01 Picc team to evaluate the PICC line consider another midline if needed Revisit 3 weeks for me 12/18/2019 OPAT referral IV meropenem 1 g every 12 till January 01 Home IV antibiotic by [facility] Any dressing orders would be per Dr. Mora CBC CMP sed rate CRP every Wednesday12/14/2019 and 12/15/2019 Continue IV meropenem till January 01 if he can manage to do that Await a picture by podiatry upon dressing change today I have discussed with podiatry Will plan for CBC CMP sed rate CRP next week 12/12/2019 Patient tolerating the meropenem Will await Dr. Mora to check the dressing on the wound at her next rounds Discontinue Rocephin Start meropenem 1 g IV every 12 for the Enterobacter and the other gram-negative that he had seen in the cultures especially with the extensive surgery that was done and he had some drainage on the weekend Continue IV antibiotics till January 01 CBC CMP sed rate CRP Will discuss with Dr. Lopez and Dr. Mora 12/08/2019 Rocephin continued till January 01 Urinary retention to be evaluated by Dr. Lopez Will await for Dr. Mora to do the dressings 12/07/2019 Rocephin 2 g IV 24 hours till January 01 Discontinue Schulte catheter CBC CMP sed rate CRP on Wednesday12/06/2019 Rocephin 2 g to 24 hours till January 01 CBC CMP sed rate CRP periodically Transfer to rehab he has been accepted Will follow the patient in rehab with Dr. Lopez and Dr. Mora 12/05/2019 Rocephin 2 g IV 24 hours continue till January 01 because of the second surgery Elevated sed rate CRP will be followed Await transfer to rehab if approved and bed available 12/04/2019 Rocephin 2 g IV every 24 hours CBC CMP sed rate CRP Rehab referral with Dr. Lopez here if possible We will discuss with podiatry I have discussed with hospitalist OR cultures normal chalino negative AFB and fungus Blood cultures negative so far 12/01/2019 Continue Rocephin till further cultures available CBC CMP sed rate CRP Blood cultures x2 half an hour apart He did bleed well even in the wound clinic yesterday at some point will order arterial Dopplers I have discussed with podiatry at length 11/30/2019 Culture the pin site that is bleeding and draining Follow-up CBC Liver function test Rocephin 2 g IV every 24 hours continue till December 18 May need to go up to additional 2 weeks afterMar 17 which will be January 01 we will decide based on lab results and clinical response If the culture of the pin site shows any additional pathogens may need to readmit for additional IVantibiotics and streamlining treatment Revisit 1 week both I have discussed with podiatry Chief Complaint/Reason for Visit: I am seeing this patient at the request of Dr. Boogie Phan MD. I have reviewed the current hospital record, available laboratory, cardiology and imaging studies as well as available out patient records. History of Present Illness: Admission H&P by Boogie Phan MD on 11/30/2019: Dyllan Huertas is a 59 y.o. male presenting from home with h/o diabetes on disability since 2014 related to a Charcot foot and diabetes developed an ulcer in the beginning of 2018 was being followed by Dr. Robles at the office we have cultures from last year in January with Enterobacter and since then culture with gram-negative bacteria also was seen by Dr. Mora was found to have severe Charcot a corrective surgery was done with placement of an external fixator on 11/20. Today at wound clinic follow up was found to have increased drainage from one of the pin sites, being admitted for continued IV ATB and possible OR/ exploration in am. Exam: Tmax: 99 Urine Output: 2000 Stool: not recorded There were no vitals filed for this visit. Allergies: no known allergies. Current Outpatient Medications: alteplase (CATH AMANDO) 2 mg injection, Instill 2mL into clotted IV line as needed for brake liner. May repeat as needed. Do not use on Peripheral or Midlines ., Disp: 2 mL, Rfl: 52 calcium carbonate 400 mg Chew, Chew and Swallow 1,000 mg daily ., Disp: , Rfl: carvediloL (COREG) 12.5 MG tablet, Take 1 (one) tablet (12.5 mg total) by mouth 2 (two) times a day., Disp: 60 tablet, Rfl: 0 docusate sodium (COLACE) 100 MG capsule, Take 100 mg by mouth daily ., Disp: , Rfl: doxycycline hyclate (VIBRAMYCIN) 100 MG capsule, Take 1 (one) capsule (100 mg total) by mouth 2 (two) times a day Stay out of the sun. ., Disp: 60 capsule, Rfl: 1 FENOFIBRATE MICRONIZED ORAL, Take 160 mg by mouth daily ., Disp: , Rfl: finasteride (PROSCAR) 5 mg tablet, Take 2.5 mg by mouth every night at bedtime Wednesday,WED,WED ., Disp: , Rfl: gabapentin (NEURONTIN) 300 MG capsule, gabapentin GABAPENTIN 300 MG CAPS One tablet by mouth daily GABAPENTIN [id number] Sebastián Dailey MD 06-15-2017 [facility] ([id number]), Disp: , Rfl: heparin, porcine, PF, 100 unit/mL Syrg, For Open Ended Midline/PICC/CVC/Port: Flush with 5ml heparin as final flush after each use, weekly if not used. Use 3ml for Peripheral IV ., Disp: 100 Syringe,Rfl: 52 insulin NPH (HumuLIN,NovoLIN) 100 unit/mL injection, Take 30 units with breakfast, and 26 units at bedtime ., Disp: 20 mL, Rfl: 12 insulin regular (HumuLIN R, NovoLIN R) 100 unit/mL injection, Take 12 units three times daily before meals ., Disp: 20 mL, Rfl: 5 levothyroxine (SYNTHROID, LEVOTHROID) 112 MCG tablet, once daily ., Disp: , Rfl: magnesium oxide (MAG-OX) 400 mg (241.3 mg magnesium) tablet, Take 400 mg by mouth daily ., Disp: , Rfl: melatonin 5 mg Tab, Take 10 mg by mouth daily ., Disp: , Rfl: metFORMIN (GLUCOPHAGE-XR) 500 MG 24 hr tablet, 1,000 mg 2 (two) times a day ., Disp: , Rfl: multivitamin (THERAGRAN) per tablet, Take 1 tablet by mouth daily ., Disp: , Rfl: nitroGLYCERIN (NITROSTAT) 0.4 MG SL tablet, Place 1 (one) tablet (0.4 mg total) under the tongue every 5 (five) minutes as needed for chest pain , if no relief after 3 doses call 911 ., Disp: 90 tablet, Rfl: 12 rosuvastatin (CRESTOR) 20 MG tablet, 20 mg daily ., Disp: , Rfl: tamsulosin (FLOMAX) 0.4 mg capsule, tamsulosin TAMSULOSIN HCL 0.4 MG CAPS One tablet by mouth [id number] TAMSULOSIN HCL [id number] Sebastián Dailey MD [birth year]-15[birth year]2017 [facility] ([id number]), Disp: , Rfl: PMH/PSH/SH/FH reviewed, no change except: Status post surgical intervention by Dr. Mora on 12/02/2019 12/05/2019 Patient was seen by rehab physician rehab evaluation in progress patient's left ankle is at risk because of right foot surgery and diabetic neuropathy in the left foot also 12/07/2019 patient is now in rehab Review of Systems: All systems were reviewed and negative except: Denies any fever chills no pain in the right leg and foot 12/06/2019 denies any fever chills or diarrhea 12/08/2019 Schulte had to be reinserted for urinary increase residual 12/11/2019 Dressing was changed by Dr. Mora on Wednesday there was some drainage culture was done there was some maceration culture result is normal chalino Dr. Mora's note was reviewed by mo Medications Reviewed. Chart Reviewed. BP 137/85 Pulse 96 Temp 97.8 F (36.6 C) (Infrared) Resp 18 SpO2 93% Exam Findings: Constitutional: HENT: Pupils reactive head: No oral candidiasis Eyes: No icterus Neck: Supple Cardiovascular: Heart S1-S2 2 by systolic murmur present no S3 Murmur Pulmonary/Chest: Clear Abdominal: Soft Musculoskeletal: No calf tenderness on the right leg Neurological: Has diabetic neuropathy with Charcot is able to wiggle the toes Skin no redness or cellulitis noted on the plantar foot area Schulte: Being managed by urology IV: None other: Pins are removed pin sites have no pus the external fixator has been removed Performed wound has no drainage Wound (Outpatient Only) 03/31/19 Foot Anterior;Right;Plantar (Active) Wound Image 02/23/2020 7:00 AM Wound Length (cm) 2 cm 02/09/2020 8:22 AM Wound Width (cm) 0.3 cm 02/09/2020 8:22 AM Wound Depth (cm) 0.3 cm 02/09/2020 8:22 AM Wound Surface Area (cm^2) 0.6 cm^2 02/09/2020 8:22 AM Wound Volume (cm^3) 0.18 cm^3 02/09/2020 8:22 AM Area % Change -75 02/09/2020 8:22 AM Volume % Change 0 02/09/2020 8:22 AM Tunneling Maximum Distance (cm) 0 cm 02/09/2020 8:22 AM Tunneling Position (o'clock) 0 02/09/2020 8:22 AM Undermining Maximum Distance (cm) 1 0 cm 02/09/2020 8:22 AM Undermining Starting Position (o'clock) 1 0 02/09/2020 8:22 AM Undermining Ending Position (o'clock) 1 0 02/09/2020 8:22 AM Wound Encounter Subsequent 02/09/2020 8:22 AM Wound Progress Improving 02/09/2020 8:22 AM Non-staged Wound Description Partial thickness 02/09/2020 7:00 AM Drainage Amount Scant 02/09/2020 7:00 AM Drainage Description Yellow 02/09/2020 7:00 AM Odor None 02/09/2020 7:00 AM Wound Margin Attached to wound base 02/09/2020 7:00 AM Adherent Yellow Slough % None 02/09/2020 7:00 AM Moist Yellow Slough % None 02/09/2020 7:00 AM Dry Black Eschar % None 02/09/2020 7:00 AM Moist Black Eschar % None 02/09/2020 7:00 AM Epithelialization % 51-75% 02/09/2020 7:00 AM Granulation % 26-50%;[place] 02/09/2020 7:00 AM Exposed Structure None 02/09/2020 7:00 AM Wound Bed Characteristics Clean;Intact;Granulation tissue 02/09/2020 7:00 AM Wound Closure Sutures 12/28/2019 8:15 AM Angeli-wound Assessment Temperature WNL 02/09/2020 7:00 AM Treatments Not Applicable 01/19/2020 7:00 AM Hemostasis Not applicable 01/19/2020 7:00 AM Cleansed Soap and water 02/09/2020 7:00 AM Primary Dressing Collagen;Antibiotic ointment / cream 02/09/2020 8:22 AM Secondary Dressing Gauze pad;Gauze roll 02/09/2020 8:22 AM Compression Dressing Zechariah wrap 02/09/2020 8:22 AM Wound 12/14/19 Pressure Injury Great Toe;Toe Anterior;Right (Active) Wound Image 02/23/2020 7:00 AM Wound Length (cm) 0.3 cm 02/23/2020 7:00 AM Wound Width (cm) 0.5 cm 02/23/2020 7:00 AM Wound Depth (cm) 0 cm 02/23/2020 7:00 AM Wound Surface Area (cm^2) 0.15 cm^2 02/23/2020 7:00 AM Wound Volume (cm^3) 0 cm^3 02/23/2020 7:00 AM Area % Change 275 02/23/2020 7:00 AM Tunneling Maximum Distance (cm) 0 cm 02/09/2020 7:00 AM Tunneling Position (o'clock) 0 02/09/2020 7:00 AM Tunneling Maximum Distance (cm) 0 cm 02/09/2020 7:00 AM Tunneling Position (o'clock) 0 02/09/2020 7:00 AM Undermining Maximum Distance (cm) 1 0 cm 02/09/2020 7:00 AM Undermining Starting Position (o'clock) 1 0 02/09/2020 7:00 AM Undermining Ending Position (o'clock) 1 0 02/09/2020 7:00 AM Undermining Maximum Distance (cm) 2 0 cm 02/09/2020 7:00 AM Undermining Starting Position (o'clock) 2 0 02/09/2020 7:00 AM Undermining Ending Position (o'clock) 2 0 02/09/2020 7:00 AM Wound Progress Improving 02/09/2020 7:00 AM State of Healing Eschar 01/12/2020 7:00 AM Non-staged Wound Description Eschar covered 02/09/2020 7:00 AM Drainage Amount None 02/16/2020 8:15 AM Drainage Description Yellow 02/09/2020 7:00 AM Odor None 02/09/2020 7:00 AM Wound Margin Attached to wound base 02/09/2020 7:00 AM Adherent Yellow Slough % 26-50% 02/16/2020 8:15 AM Moist Yellow Slough % 76-100% 02/09/2020 7:00 AM Dry Black Eschar % None 02/09/2020 7:00 AM Moist Black Eschar % None 02/09/2020 7:00 AM Epithelialization % 76-100% 02/09/2020 7:00 AM Granulation % 26-50%;[place] 02/16/2020 8:15 AM Exposed Structure None 02/09/2020 7:00 AM Wound Bed Characteristics Clean;Dry;Intact 02/09/2020 7:00 AM Angeli-wound Assessment Temperature WNL 02/09/2020 7:00 AM Treatments Not Applicable 02/09/2020 7:00 AM Hemostasis Not applicable 02/09/2020 7:00 AM Cleansed Soap and water 02/16/2020 8:15 AM Primary Dressing Collagen 02/09/2020 7:00 AM Secondary Dressing Gauze roll;Gauze pad 02/09/2020 7:00 AM Compression Dressing Zechariah wrap 02/09/2020 7:00 AM Wound 02/12/20 Acute Diabetic Ulcer Foot Plantar (Active) Wound Image 02/23/2020 7:00 AM Wound Length (cm) 0.2 cm 02/23/2020 7:00 AM Wound Width (cm) 0.4 cm 02/23/2020 7:00 AM Wound Depth (cm) 0.1 cm 02/16/2020 8:15 AM Wound Surface Area (cm^2) 0.08 cm^2 02/23/2020 7:00 AM Wound Volume (cm^3) 0.03 cm^3 02/16/2020 8:15 AM Area % Change -68 02/23/2020 7:00 AM Tunneling Position (o'clock) 0 02/23/2020 7:00 AM Tunneling Maximum Distance (cm) 0 cm 02/23/2020 7:00 AM Tunneling Position (o'clock) 0 02/23/2020 7:00 AM Undermining Maximum Distance (cm) 1 0 cm 02/23/2020 7:00 AM Undermining Starting Position (o'clock) 1 0 02/23/2020 7:00 AM Undermining Ending Position (o'clock) 1 0 02/23/2020 7:00 AM Undermining Maximum Distance (cm) 2 0 cm 02/23/2020 7:00 AM Undermining Starting Position (o'clock) 2 0 02/23/2020 7:00 AM Undermining Ending Position (o'clock) 2 0 02/23/2020 7:00 AM Wound Progress Improving 02/23/2020 7:00 AM Non-staged Wound Description Partial thickness 02/23/2020 7:00 AM Drainage Amount None 02/23/2020 7:00 AM Drainage Description Serous 02/23/2020 7:00 AM Odor None 02/23/2020 7:00 AM Adherent Yellow Slough % None 02/23/2020 7:00 AM Moist Yellow Slough % None 02/23/2020 7:00 AM Dry Black Eschar % None 02/23/2020 7:00 AM Moist Black [place]char % None 02/23/2020 7:00 AM Epithelialization % 76-100% 02/23/2020 7:00 AM Granulation % 1-25% 02/23/2020 7:00 AM Exposed Structure None 02/23/2020 7:00 AM Wound Bed Characteristics Clean;Intact;Granulation tissue;[place] 02/23/2020 7:00 AM Angeli-wound Assessment Temperature WNL;[place];Moist;Maceration 02/23/2020 7:00 AM Treatments Not Applicable 02/23/2020 7:00 AM Hemostasis Not applicable 02/23/2020 7:00 AM Cleansed Soap and water 02/23/2020 7:00 AM Laboratory and Additional Data Reviewed: Date: 02/23/2020 No new labs/ results as of last note: 02/16/2020 02/16/2020 X-ray Right foot FINDINGS: There is extensive hardware from an external fixator present. This obscures fine bony detail.A single percutaneous pin is seen entering the plantar aspect of the foot through the calcaneus, talus, and entering the distal tibia. A 2nd slightly larger metallic tommy is seen entering the posterior calcaneus extending into the talus. Degenerative changes are present in the midfoot. There is soft tissue edema. IMPRESSION: Study is limited due to overlying external fixator. No significant change in alignment. 02/16/2020 X-ray right tib/fib FINDINGS: There is extensive hardware from an external fixator present. This obscures fine bony detail.A single percutaneous pin is seen entering the plantar aspect of the foot through the calcaneus, talus, and entering the distal tibia. A 2nd slightly larger metallic tommy is seen entering the posterior calcaneus extending into the talus. Degenerative changes are present in the midfoot. There is soft tissue edema. IMPRESSION: Study is limited due to overlying external fixator. No significant change in alignment. Update from previous note Current Antibiotic: Doxycycline 100 mg PO daily for 6 weeks - Started 01/03/2020 Previous Antibiotic: Doxycycline 100 mg BID for 6 weeks - Start 01/03/2020 Merrem 1,000 mg IV every 12 Hours until January 02, 2020 ([facility]) Rocephin 2 gm IV every 24 Hours Ancef 2,000 mg IV every 8 Hours Pre/Post Procedure Dressings: Right foot - Clean pins and wires with alcohol and paint with betadine. Kb to right great toe. Per Dr. Mora. Current culture: 12/28/2019 - Right foot, aerobic culture: Normal Chalino after 48 hours. Recent Cultures: 12/21/2019 - Right foot, aerobic - normal chalino after 48 hours 12/21/2019 - Right foot, anaerobic: No anaerobic growth at 2 days. 12/10/2019 Right Foot Wound Aerobic Culture: Normal Chalino After 48 Hours. Final 12/10/2019 Right foot wound, anaerobic culture: No anaerobic growth at 2 days. Final 12/08/2019 Urine Aerobic Culture: No Growth (<1,000 CFU/mL). Final. 12/07/2019 Urine Aerobic Culture on arrival to Nursing Rehab Unit: No Growth (<1,000 CFU/mL). Final. 12/02/2019 Right Foot Tissue Aerobic Culture: Normal Chalino After 48 Hours. Final. 12/02/2019 Right Foot Tissue AFB Culture: No Acid Fast Bacilli after 8 weeks. Final. 12/02/2019 Right Foot Tissue Anaerobic Culture: No Anaerobic Growth at 2 Days. Final. 12/02/2019 Right Foot Tissue Fungus Culture: No fungus isolated at 4 weeks. Final. 11/30/2019 Right Foot Wound Aerobic Culture: Normal Chalino After 48 Hours. Final. 11/21/2019 Left Leg Wound Aerobic Culture: Normal Chalino After 48 Hours. Final. 11/20/2019 Right Foot Tissue Aerobic Culture: Moderate Growth Enterobacter cloacae complex, S=Youssef Sensitive. Final. 11/20/2019 Right Foot Tissue Anaerobic Culture: No Anaerobic Growth at 2 Days. Final. 11/20/2019 Right Foot Bone Aerobic Culture: Light Growth Enterobacter Cloacae Complex, S=Youssef Sensitive. Final. 11/20/2019 Right Foot Bone Anaerobic Culture: No Anaerobic Growth at 2 Days. Final Date: 02/16/2020 New labs/ results as of last note: 02/09/2020 CBC Auto Differential .. Component Ref Range & Units 7d ago (02/09/20) 1mo ago (12/28/19) 2mo ago (12/18/19) 2mo ago (12/12/19) 2mo ago (12/07/19) 2mo ago (12/05/19) 2mo ago (12/02/19) WBC 4.50 - 11.00 K/mcL 6.01 4.66 6.38 4.12Low 6.95 7.98 9.43 RBC 4.50 - 5.90 M/mcL 4.53 4.42Low 4.44Low 4.13Low 4.23Low 4.22Low 4.29Low Hemoglobin 13.5 - 17.5 g/dL 12.1Low 11.6Low 11.7Low 10.8Low 11.3Low 11.4Low 11.5Low Hematocrit 41.0 - 53.0 % 38.2Low 38.0Low 37.8Low 35.6Low 36.8Low 36.3Low 36.7Low MCV 80.0 - 100.0 fL 84.3 86.0 85.1 86.2 87.0 86.0 85.5 MCH 26.0 - 34.0 pg 26.7 26.2 26.4 26.2 26.7 27.0 26.8 MCHC 31.0 - 37.0 g/dL 31.7 30.5Low 31.0 30.3Low 30.7Low 31.4 31.3 Platelets 150 - 400 K/mcL 196 182 323 203 210 228 Comprehensive Metabolic Panel Component Ref Range & Units 7d ago (02/09/20) 1mo ago (12/28/19) 2mo ago (12/18/19) 2mo ago (12/12/19) 2mo ago (12/07/19) 2mo ago (12/05/19) 2mo ago (12/02/19) Sodium 135 - 145 mmol/L 142 142 142 140 138 139 137 Potassium 3.5 - 5.1 mmol/L 4.3 4.3 4.5 4.3 3.9 4.1 4.7 Chloride 98 - 108 mmol/L 109High 109High 106 106 104 104 102 Bicarbonate 21 - 32 mmol/L 28 31 25 30 29 30 30 Anion Gap 10 - 20 mmol/L 9Low 6Low 16 8Low 9Low 9Low 10 Glucose 65 - 99 mg/dL 205High 135High 82 167High 243High 223High 256High BUN 8 - 25 mg/dL 22 18 23 26High 17 19 19 Creatinine 0.50 - 1.30 mg/dL 0.94 0.71 1.04 0.89 0.86 0.86 1.06 eGFR >=60 mL/min/1.73 m2 90 104 79 95 96 96 78 BUN/Creatinine Ratio 10.0 - 20.0 23.4High 25.4High 22.1High 29.2High 19.8 22.1High 17.9 Total Protein 6.0 - 8.0 g/dL 6.9 7.0 7.2 6.7 6.6 6.4 6.7 Albumin 3.2 - 5.2 g/dL 3.5 3.1Low 3.0Low 2.5Low 2.4Low 2.4Low 2.4Low Calcium 8.4 - 10.2 mg/dL 9.2 9.2 9.6 9.7 9.4 9.1 9.2 Alkaline Phosphatase 40 - 150 U/L 72 93 94 83 76 75 82 AST 0 - 45 U/L 14 16 20 35 28 20 32 Total Bilirubin 0.0 - 1.3 mg/dL 0.3 0.4 0.3 0.3 0.4 0.4 0.4 ALT 14 - 65 U/L 19 19 27 52 40 31 53 CRP, Inflammation Component Ref Range & Units 7d ago (02/09/20) 1mo ago (12/28/19) 2mo ago (12/18/19) 2mo ago (12/12/19) 2mo ago (12/05/19) 2mo ago (12/02/19) 2mo ago (11/27/19) CRP(Inflammation) <=10.0 mg/L 5.7 6.4 18.7High 52.4High 85.3High 76.1High 69.0High Sedimentation Rate Component Ref Range & Units 7d ago (02/09/20) 1mo ago (12/28/19) 2mo ago (12/18/19) 2mo ago (12/12/19) 2mo ago (12/05/19) 2mo ago (12/02/19) 2mo ago (11/27/19) Sed Rate 0 - 20 mm/hr 24High 33High 72High 91High 85High 93High 94High Update from previous note Current Antibiotic: Doxycycline 100 mg PO daily for 6 weeks - Started 01/03/2020 Previous Antibiotic: Doxycycline 100 mg BID for 6 weeks - Start 01/03/2020 Merrem 1,000 mg IV every 12 Hours until January 02, 2020 ([facility]) Rocephin 2 gm IV every 24 Hours Ancef 2,000 mg IV every 8 Hours Pre/Post Procedure Dressings: Right foot - Clean pins and wires with alcohol and paint with betadine. Kb to right great toe. Per Dr. Mora. Current culture: 12/28/2019 - Right foot, aerobic culture: Normal Chalino after 48 hours. Recent Cultures: 12/21/2019 - Right foot, aerobic - normal chalino after 48 hours 12/21/2019 - Right foot, anaerobic: No anaerobic growth at 2 days. 12/10/2019 Right Foot Wound Aerobic Culture: Normal Chalino After 48 Hours. Final 12/10/2019 Right foot wound, anaerobic culture: No anaerobic growth at 2 days. Final 12/08/2019 Urine Aerobic Culture: No Growth (<1,000 CFU/mL). Final. 12/07/2019 Urine Aerobic Culture on arrival to Nursing Rehab Unit: No Growth (<1,000 CFU/mL). Final. 12/02/2019 Right Foot Tissue Aerobic Culture: Normal Chalino After 48 Hours. Final. 12/02/2019 Right Foot Tissue AFB Culture: No Acid Fast Bacilli after 8 weeks. Final. 12/02/2019 Right Foot Tissue Anaerobic Culture: No Anaerobic Growth at 2 Days. Final. 12/02/2019 Right Foot Tissue Fungus Culture: No fungus isolated at 4 weeks. Final. 11/30/2019 Right Foot Wound Aerobic Culture: Normal Chalino After 48 Hours. Final. 11/21/2019 Left Leg Wound Aerobic Culture: Normal Chalino After 48 Hours. Final. 11/20/2019 Right Foot Tissue Aerobic Culture: Moderate Growth Enterobacter cloacae complex, S=Youssef Sensitive. Final. 11/20/2019 Right Foot Tissue Anaerobic Culture: No Anaerobic Growth at 2 Days. Final. 11/20/2019 Right Foot Bone Aerobic Culture: Light Growth Enterobacter Cloacae Complex, S=Youssef Sensitive. Final. 11/20/2019 Right Foot Bone Anaerobic Culture: No Anaerobic Growth at 2 Days. Final Date: 02/09/2020 No new labs/ results as of last note: 01/26/2020 Update from previous note Current Antibiotic: Doxycycline 100 mg PO daily for 6 weeks - Started 01/03/2020 Previous Antibiotic: Doxycycline 100 mg BID for 6 weeks - Start 01/03/2020 Merrem 1,000 mg IV every 12 Hours until January 02, 2020 ([facility]) Rocephin 2 gm IV every 24 Hours Ancef 2,000 mg IV every 8 Hours Pre/Post Procedure Dressings: Right foot - Clean pins and wires with alcohol and paint with betadine. Kb to right great toe. Per Dr. Mora. Current culture: 12/28/2019 - Right foot, aerobic culture: Normal Chalino after 48 hours. Recent Cultures: 12/21/2019 - Right foot, aerobic - normal chalino after 48 hours 12/21/2019 - Right foot, anaerobic: No anaerobic growth at 2 days. 12/10/2019 Right Foot Wound Aerobic Culture: Normal Chalino After 48 Hours. Final 12/10/2019 Right foot wound, anaerobic culture: No anaerobic growth at 2 days. Final 12/08/2019 Urine Aerobic Culture: No Growth (<1,000 CFU/mL). Final. 12/07/2019 Urine Aerobic Culture on arrival to Nursing Rehab Unit: No Growth (<1,000 CFU/mL). Final. 12/02/2019 Right Foot Tissue Aerobic Culture: Normal Chalino After 48 Hours. Final. 12/02/2019 Right Foot Tissue AFB Culture: No Acid Fast Bacilli after 8 weeks. Final. 12/02/2019 Right Foot Tissue Anaerobic Culture: No Anaerobic Growth at 2 Days. Final. 12/02/2019 Right Foot Tissue Fungus Culture: No fungus isolated at 4 weeks. Final. 12/01/2019 Blood Culture #1: No Growth After 5 Days. Final. 12/01/2019 Blood Culture #2: No Growth After 5 Days. Final. 11/30/2019 Right Foot Wound Aerobic Culture: Normal Chalino After 48 Hours. Final. 11/21/2019 Left Leg Wound Aerobic Culture: Normal Chalino After 48 Hours. Final. 11/20/2019 Right Foot Tissue Aerobic Culture: Moderate Growth Enterobacter cloacae complex, S=Youssef Sensitive. Final. 11/20/2019 Right Foot Tissue Anaerobic Culture: No Anaerobic Growth at 2 Days. Final. 11/20/2019 Right Foot Bone Aerobic Culture: Light Growth Enterobacter Cloacae Complex, S=Youssef Sensitive. Final. 11/20/2019 Right Foot Bone Anaerobic Culture: No Anaerobic Growth at 2 Days. Final Date: 01/26/2020 No new labs/ results as of last note: 01/19/2020 Update from previous note Current Antibiotic: Doxycycline 100 mg PO daily for 6 weeks - Started 01/03/2020 Previous Antibiotic: Doxycycline 100 mg BID for 6 weeks - Start 01/03/2020 Merrem 1,000 mg IV every 12 Hours until January 02, 2020 ([facility]) Rocephin 2 gm IV every 24 Hours Ancef 2,000 mg IV every 8 Hours Pre/Post Procedure Dressings: Right foot - Clean pins and wires with alcohol and paint with betadine. Kb to right great toe an plantar foot. Per Dr. Mora. Current culture: 12/28/2019 - Right foot, aerobic culture: Normal Chalino after 48 hours. Recent Cultures: 12/21/2019 - Right foot, aerobic - normal chalino after 48 hours 12/21/2019 - Right foot, anaerobic: No anaerobic growth at 2 days. 12/10/2019 Right Foot Wound Aerobic Culture: Normal Chalino After 48 Hours. Final 12/10/2019 Right foot wound, anaerobic culture: No anaerobic growth at 2 days. Final 12/08/2019 Urine Aerobic Culture: No Growth (<1,000 CFU/mL). Final. 12/07/2019 Urine Aerobic Culture on arrival to Nursing Rehab Unit: No Growth (<1,000 CFU/mL). Final. 12/02/2019 Right Foot Tissue Aerobic Culture: Normal Chalino After 48 Hours. Final. 12/02/2019 Right Foot Tissue AFB Culture: No Acid Fast Bacilli Seen. Preliminary. 12/02/2019 Right Foot Tissue Anaerobic Culture: No Anaerobic Growth at 2 Days. Final. 12/02/2019 Right Foot Tissue Fungus Culture: No fungus isolated at 4 weeks. Final. 12/01/2019 Blood Culture #1: No Growth After 5 Days. Final. 12/01/2019 Blood Culture #2: No Growth After 5 Days. Final. 11/30/2019 Right Foot Wound Aerobic Culture: Normal Chalino After 48 Hours. Final. 11/21/2019 Left Leg Wound Aerobic Culture: Normal Chalino After 48 Hours. Final. 11/20/2019 Right Foot Tissue Aerobic Culture: Moderate Growth Enterobacter cloacae complex, S=Youssef Sensitive. Final. 11/20/2019 Right Foot Tissue Anaerobic Culture: No Anaerobic Growth at 2 Days. Final. 11/20/2019 Right Foot Bone Aerobic Culture: Light Growth Enterobacter Cloacae Complex, S=Youssef Sensitive. Final. 11/20/2019 Right Foot Bone Anaerobic Culture: No Anaerobic Growth at 2 Days. Final January 19, 2020 12/28/2019 sed rate 33 CRP 6.4 WBC 4.6 culture on 12/28/2019 Gram stain negative culture normal chalino Date: 01/12/2020 New labs/ results as of last note: 12/28/2019 CBC Auto Differential Order: [id number] - Part of Panel Order [id number] Status: Final result Visible to patient: No (Not Released) Next appt: 01/12/2020 at 07:45 AM in Wound Care (Alena Mora DPM) Dx: Acute osteomyelitis (HCC); Elevated C... Component Ref Range & Units 12d ago (12/28/19) 3wk ago (12/18/19) 4wk ago (12/12/19) 1mo ago (12/07/19) 1mo ago (12/05/19) 1mo ago (12/02/19) 1mo ago (12/01/19) WBC 4.50 - 11.00 K/mcL 4.66 6.38 4.12Low 6.95 7.98 9.43 8.56 RBC 4.50 - 5.90 M/mcL 4.42Low 4.44Low 4.13Low 4.23Low 4.22Low 4.29Low 4.09Low Hemoglobin 13.5 - 17.5 g/dL 11.6Low 11.7Low 10.8Low 11.3Low 11.4Low 11.5Low 11.2Low Hematocrit 41.0 - 53.0 % 38.0Low 37.8Low 35.6Low 36.8Low 36.3Low 36.7Low 35.6Low MCV 80.0 - 100.0 fL 86.0 85.1 86.2 87.0 86.0 85.5 87.0 MCH 26.0 - 34.0 pg 26.2 26.4 26.2 26.7 27.0 26.8 27.4 MCHC 31.0 - 37.0 g/dL 30.5Low 31.0 30.3Low 30.7Low 31.4 31.3 31.5 Platelets 150 - 400 K/mcL 182 323 203 210 228 235 232 Comprehensive Metabolic Panel Order: [id number] Status: Final result Visible to patient: No (Not Released) Next appt: 01/12/2020 at 07:45 AM in Wound Care (Alena Mora DPM) Dx: Acute osteomyelitis (HCC); Elevated C... Component Ref Range & Units 12d ago (12/28/19) 3wk ago (12/18/19) 4wk ago (12/12/19) 1mo ago (12/07/19) 1mo ago (12/05/19) 1mo ago (12/02/19) 1mo ago (12/01/19) Sodium 135 - 145 mmol/L 142 142 140 138 139 137 140 Potassium 3.5 - 5.1 mmol/L 4.3 4.5 4.3 3.9 4.1 4.7 5.0 Chloride 98 - 108 mmol/L 109High 106 106 104 104 102 106 Bicarbonate 21 - 32 mmol/L 31 25 30 29 30 30 30 Anion Gap 10 - 20 mmol/L 6Low 16 8Low 9Low 9Low 10 9Low Glucose 65 - 99 mg/dL 135High 82 167High 243High 223High 256High 223High BUN 8 - 25 mg/dL 18 23 26High 17 19 19 22 Creatinine 0.50 - 1.30 mg/dL 0.71 1.04 0.89 0.86 0.86 1.06 0.98 eGFR >=60 mL/min/1.73 m2 104 79 95 96 96 78 85 BUN/Creatinine Ratio 10.0 - 20.0 25.4High 22.1High 29.2High 19.8 22.1High 17.9 22.4High Total Protein 6.0 - 8.0 g/dL 7.0 7.2 6.7 6.6 6.4 6.7 Albumin 3.2 - 5.2 g/dL 3.1Low 3.0Low 2.5Low 2.4Low 2.4Low 2.4Low Calcium 8.4 - 10.2 mg/dL 9.2 9.6 9.7 9.4 9.1 9.2 9.1 Alkaline Phosphatase 40 - 150 U/L 93 94 83 76 75 82 AST 0 - 45 U/L 16 20 35 28 20 32 Total Bilirubin 0.0 - 1.3 mg/dL 0.4 0.3 0.3 0.4 0.4 0.4 ALT 14 - 65 U/L 19 27 52 40 31 53 Resulting Agency Lab Lab Lab Lab Lab Lab Lab CRP, Inflammation Order: [id number] Status: Final result Visible to patient: No (Not Released) Next appt: 01/12/2020 at 07:45 AM in Wound Care (Alena Mora DPM) Dx: Acute osteomyelitis (HCC); Elevated C... Component Ref Range & Units 12d ago (12/28/19) 3wk ago (12/18/19) 4wk ago (12/12/19) 1mo ago (12/05/19) 1mo ago (12/02/19) 1mo ago (11/27/19) CRP(Inflammation) <=10.0 mg/L 6.4 18.7High 52.4High 85.3High 76.1High 69.0High Sedimentation Rate Order: [id number] Status: Final result Visible to patient: No (Not Released) Next appt: 01/12/2020 at 07:45 AM in Wound Care (Alena Mora DPM) Dx: Acute osteomyelitis (HCC); Elevated C... Component Ref Range & Units 12d ago (12/28/19) 3wk ago (12/18/19) 4wk ago (12/12/19) 1mo ago (12/05/19) 1mo ago (12/02/19) 1mo ago (11/27/19) Sed Rate 0 - 20 mm/hr 33High 72High 91High 85High 93High 94High Update from previous note Current Antibiotic: Doxycycline 100 mg PO BID for 6 weeks - Start 01/03/2020 Previous Antibiotic: Merrem 1,000 mg IV every 12 Hours until January 02, 2020 ([facility]) Rocephin 2 gm IV every 24 Hours Ancef 2,000 mg IV every 8 Hours Pre/Post Procedure Dressings: Per Dr. Mora Current culture: 12/28/2019 - Right foot, aerobic culture: Normal Chalino after 48 hours. Recent Cultures: 12/21/2019 - Right foot, aerobic - normal chalino after 48 hours 12/21/2019 - Right foot, anaerobic: No anaerobic growth at 2 days. 12/10/2019 Right Foot Wound Aerobic Culture: Normal Chalino After 48 Hours. Final 12/10/2019 Right foot wound, anaerobic culture: No anaerobic growth at 2 days. Final 12/08/2019 Urine Aerobic Culture: No Growth (<1,000 CFU/mL). Final. 12/07/2019 Urine Aerobic Culture on arrival to Nursing Rehab Unit: No Growth (<1,000 CFU/mL). Final. 12/02/2019 Right Foot Tissue Aerobic Culture: Normal Chalino After 48 Hours. Final. 12/02/2019 Right Foot Tissue AFB Culture: No Acid Fast Bacilli Seen. Preliminary. 12/02/2019 Right Foot Tissue Anaerobic Culture: No Anaerobic Growth at 2 Days. Final. 12/02/2019 Right Foot Tissue Fungus Culture: No fungus isolated at 4 weeks. Final. 12/01/2019 Blood Culture #1: No Growth After 5 Days. Final. 12/01/2019 Blood Culture #2: No Growth After 5 Days. Final. 11/30/2019 Right Foot Wound Aerobic Culture: Normal Chalino After 48 Hours. Final. 11/21/2019 Left Leg Wound Aerobic Culture: Normal Chalino After 48 Hours. Final. 11/20/2019 Right Foot Tissue Aerobic Culture: Moderate Growth Enterobacter cloacae complex, S=Youssef Sensitive. Final. 11/20/2019 Right Foot Tissue Anaerobic Culture: No Anaerobic Growth at 2 Days. Final. 11/20/2019 Right Foot Bone Aerobic Culture: Light Growth Enterobacter Cloacae Complex, S=Youssef Sensitive. Final. 11/20/2019 Right Foot Bone Anaerobic Culture: No Anaerobic Growth at 2 Days. Final Date: 12/28/2019 New labs/ results as of last note: 12/21/2019 Labs unable to be drawn by Home Health nurse 12/25/2019 I have personally reviewed all labs and other results Labs: Current Culture: 12/21/2019 - Right foot, aerobic - normal chalino after 48 hours 12/21/2019 - Right foot, anaerobic: No anaerobic growth at 2 days. Update from previous note Current Antibiotics: Merrem 1,000 mg IV every 12 Hours until January 02, 2020 ([facility]) Previous Antibiotic: Rocephin 2 gm IV every 24 Hours Ancef 2,000 mg IV every 8 Hours Pre/Post Procedure Dressings: Per Dr. Mora Recent Cultures: 12/10/2019 Right Foot Wound Aerobic Culture: Normal Chalino After 48 Hours. Final 12/10/2019 Right foot wound, anaerobic culture: No anaerobic growth at 2 days. Final 12/08/2019 Urine Aerobic Culture: No Growth (<1,000 CFU/mL). Final. 12/07/2019 Urine Aerobic Culture on arrival to Nursing Rehab Unit: No Growth (<1,000 CFU/mL). Final. 12/02/2019 Right Foot Tissue Aerobic Culture: Normal Chalino After 48 Hours. Final. 12/02/2019 Right Foot Tissue AFB Culture: No Acid Fast Bacilli Seen. Preliminary. 12/02/2019 Right Foot Tissue Anaerobic Culture: No Anaerobic Growth at 2 Days. Final. 12/02/2019 Right Foot Tissue Fungus Culture: Fungal Culture in Progress. Preliminary. 12/01/2019 Blood Culture #1: No Growth After 5 Days. Final. 12/01/2019 Blood Culture #2: No Growth After 5 Days. Final. 11/30/2019 Right Foot Wound Aerobic Culture: Normal Chalino After 48 Hours. Final. 11/21/2019 Left Leg Wound Aerobic Culture: Normal Chalino After 48 Hours. Final. 11/20/2019 Right Foot Tissue Aerobic Culture: Moderate Growth Enterobacter cloacae complex, S=Youssef Sensitive. Final. 11/20/2019 Right Foot Tissue Anaerobic Culture: No Anaerobic Growth at 2 Days. Final. 11/20/2019 Right Foot Bone Aerobic Culture: Light Growth Enterobacter Cloacae Complex, S=Youssef Sensitive. Final. 11/20/2019 Right Foot Bone Anaerobic Culture: No Anaerobic Growth at 2 Days. Final Date: 12/21/2019 No new labs/ results as of last note: 12/18/2019 Update from previous note Current Antibiotics: Merrem 1,000 mg IV every 12 Hours until January 02, 2020 ([facility]) Previous Antibiotic: Rocephin 2 gm IV every 24 Hours Ancef 2,000 mg IV every 8 Hours Pre/Post Procedure Dressings: Per Dr. Mora Current Cultures: 12/10/2019 Right Foot Wound Aerobic Culture: Normal Chalino After 48 Hours. Final 12/10/2019 Right foot wound, anaerobic culture: No anaerobic growth at 2 days. Final 12/08/2019 Urine Aerobic Culture: No Growth (<1,000 CFU/mL). Final. 12/07/2019 Urine Aerobic Culture on arrival to Nursing Rehab Unit: No Growth (<1,000 CFU/mL). Final. 12/02/2019 Right Foot Tissue Aerobic Culture: Normal Chalino After 48 Hours. Final. 12/02/2019 Right Foot Tissue AFB Culture: No Acid Fast Bacilli Seen. Preliminary. 12/02/2019 Right Foot Tissue Anaerobic Culture: No Anaerobic Growth at 2 Days. Final. 12/02/2019 Right Foot Tissue Fungus Culture: Fungal Culture in Progress. Preliminary. 12/01/2019 Blood Culture #1: No Growth After 5 Days. Final. 12/01/2019 Blood Culture #2: No Growth After 5 Days. Final. 11/30/2019 Right Foot Wound Aerobic Culture: Normal Chalino After 48 Hours. Final. 11/21/2019 Left Leg Wound Aerobic Culture: Normal Chalino After 48 Hours. Final. 11/20/2019 Right Foot Tissue Aerobic Culture: Moderate Growth Enterobacter cloacae complex, S=Youssef Sensitive. Final. 11/20/2019 Right Foot Tissue Anaerobic Culture: No Anaerobic Growth at 2 Days. Final. 11/20/2019 Right Foot Bone Aerobic Culture: Light Growth Enterobacter Cloacae Complex, S=Youssef Sensitive. Final. 11/20/2019 Right Foot Bone Anaerobic Culture: No Anaerobic Growth at 2 Days. Final Date: 12/19/2019 No new labs/results as of last note Update from previous note Tmax: 98.5 Urine Output: 2400 Stool: X1 Current Antibiotics: Merrem 1,000 mg IV every 12 Hours until January 02, 2020 Previous Antibiotic: Rocephin 2 gm IV every 24 Hours Ancef 2,000 mg IV every 8 Hours Pre/Post Procedure Dressings: Per Dr. Mora I have personally reviewed the labs and results Test results Laboratory and Additional Data Reviewed: Labs to de drawn every Wednesday (CBC, CMP, Sed Rate, CRP) Current Cultures: 12/10/2019 Right Foot Wound Aerobic Culture: Normal Chalino After 48 Hours. Final 12/10/2019 Right foot wound, anaerobic culture: No anaerobic growth at 2 days. Final 12/08/2019 Urine Aerobic Culture: No Growth (<1,000 CFU/mL). Final. 12/07/2019 Urine Aerobic Culture on arrival to Nursing Rehab Unit: No Growth (<1,000 CFU/mL). Final. 12/02/2019 Right Foot Tissue Aerobic Culture: Normal Chalino After 48 Hours. Final. 12/02/2019 Right Foot Tissue AFB Culture: No Acid Fast Bacilli Seen. Preliminary. 12/02/2019 Right Foot Tissue Anaerobic Culture: No Anaerobic Growth at 2 Days. Final. 12/02/2019 Right Foot Tissue Fungus Culture: Fungal Culture in Progress. Preliminary. 12/01/2019 Blood Culture #1: No Growth After 5 Days. Final. 12/01/2019 Blood Culture #2: No Growth After 5 Days. Final. 11/30/2019 Right Foot Wound Aerobic Culture: Normal Chalino After 48 Hours. Final. 11/21/2019 Left Leg Wound Aerobic Culture: Normal Chalino After 48 Hours. Final. 11/20/2019 Right Foot Tissue Aerobic Culture: Moderate Growth Enterobacter cloacae complex, S=Youssef Sensitive. Final. 11/20/2019 Right Foot Tissue Anaerobic Culture: No Anaerobic Growth at 2 Days. Final. 11/20/2019 Right Foot Bone Aerobic Culture: Light Growth Enterobacter Cloacae Complex, S=Youssef Sensitive. Final. 11/20/2019 Right Foot Bone Anaerobic Culture: No Anaerobic Growth at 2 Days. Final Date: 12/18/2019 No new labs/results as of last note Update from previous note Tmax: 98.1 Urine Output: 3950 Stool: not recorded Current Antibiotics: Merrem 1,000 mg IV every 12 Hours Previous Antibiotic: Rocephin 2 gm IV every 24 Hours Ancef 2,000 mg IV every 8 Hours Pre/Post Procedure I have personally reviewed the labs and results Test results Laboratory and Additional Data Reviewed: Current Cultures: 12/10/2019 Right Foot Wound Aerobic Culture: Normal Chalino After 48 Hours. Final 12/10/2019 Right foot wound, anaerobic culture: No anaerobic growth at 2 days. Final 12/08/2019 Urine Aerobic Culture: No Growth (<1,000 CFU/mL). Final. 12/07/2019 Urine Aerobic Culture on arrival to Nursing Rehab Unit: No Growth (<1,000 CFU/mL). Final. 12/02/2019 Right Foot Tissue Aerobic Culture: Normal Chalino After 48 Hours. Final. 12/02/2019 Right Foot Tissue AFB Culture: No Acid Fast Bacilli Seen. Preliminary. 12/02/2019 Right Foot Tissue Anaerobic Culture: No Anaerobic Growth at 2 Days. Final. 12/02/2019 Right Foot Tissue Fungus Culture: Fungal Culture in Progress. Preliminary. 12/01/2019 Blood Culture #1: No Growth After 5 Days. Final. 12/01/2019 Blood Culture #2: No Growth After 5 Days. Final. 11/30/2019 Right Foot Wound Aerobic Culture: Normal Chalino After 48 Hours. Final. 11/21/2019 Left Leg Wound Aerobic Culture: Normal Chalino After 48 Hours. Final. 11/20/2019 Right Foot Tissue Aerobic Culture: Moderate Growth Enterobacter cloacae complex, S=Youssef Sensitive. Final. 11/20/2019 Right Foot Tissue Anaerobic Culture: No Anaerobic Growth at 2 Days. Final. 11/20/2019 Right Foot Bone Aerobic Culture: Light Growth Enterobacter Cloacae Complex, S=Youssef Sensitive. Final. 11/20/2019 Right Foot Bone Anaerobic Culture: No Anaerobic Growth at 2 Days. Final Date: 12/15/2019 New labs/results as of last note Update from previous note Tmax: 98.7 Urine Output: 1900 Stool: not recorded Current Antibiotics: Merrem 1,000 mg IV every 12 Hours Previous Antibiotic: Rocephin 2 gm IV every 24 Hours Ancef 2,000 mg IV every 8 Hours Pre/Post Procedure I have personally reviewed the labs and results Test results Laboratory and Additional Data Reviewed: Current Cultures: 12/10/2019 Right Foot Wound Aerobic Culture: Normal Chalino After 48 Hours. Final 12/10/2019 Right foot wound, anaerobic culture: No anaerobic growth at 2 days. Final 12/08/2019 Urine Aerobic Culture: No Growth (<1,000 CFU/mL). Final. 12/07/2019 Urine Aerobic Culture on arrival to Nursing Rehab Unit: No Growth (<1,000 CFU/mL). Final. 12/02/2019 Right Foot Tissue Aerobic Culture: Normal Chalino After 48 Hours. Final. 12/02/2019 Right Foot Tissue AFB Culture: No Acid Fast Bacilli Seen. Preliminary. 12/02/2019 Right Foot Tissue Anaerobic Culture: No Anaerobic Growth at 2 Days. Final. 12/02/2019 Right Foot Tissue Fungus Culture: Fungal Culture in Progress. Preliminary. 12/01/2019 Blood Culture #1: No Growth After 5 Days. Final. 12/01/2019 Blood Culture #2: No Growth After 5 Days. Final. 11/30/2019 Right Foot Wound Aerobic Culture: Normal Chalino After 48 Hours. Final. 11/21/2019 Left Leg Wound Aerobic Culture: Normal Chalino After 48 Hours. Final. 11/20/2019 Right Foot Tissue Aerobic Culture: Moderate Growth Enterobacter cloacae complex, S=Youssef Sensitive. Final. 11/20/2019 Right Foot Tissue Anaerobic Culture: No Anaerobic Growth at 2 Days. Final. 11/20/2019 Right Foot Bone Aerobic Culture: Light Growth Enterobacter Cloacae Complex, S=Youssef Sensitive. Final. 11/20/2019 Right Foot Bone Anaerobic Culture: No Anaerobic Growth at 2 Days. Final Date: 12/14/2019 New labs/ results as of last note: 12/12/2019 T-Max: 98.6 Output: Urine 2150 ml Stool not recorded Current Antibiotics: Merrem 1,000 mg IV every 12 Hours Previous Antibiotic: Rocephin 2 gm IV every 24 Hours Ancef 2,000 mg IV every 8 Hours Pre/Post Procedure I have personally reviewed the labs and results Test results Laboratory and Additional Data Reviewed: Current Cultures: 12/10/2019 Right Foot Wound Aerobic Culture: Normal Chalino After 48 Hours. Final 12/10/2019 Right foot wound, anaerobic culture: No anaerobic growth at 2 days. Final 12/08/2019 Urine Aerobic Culture: No Growth (<1,000 CFU/mL). Final. 12/07/2019 Urine Aerobic Culture on arrival to Nursing Rehab Unit: No Growth (<1,000 CFU/mL). Final. 12/02/2019 Right Foot Tissue Aerobic Culture: Normal Chalino After 48 Hours. Final. 12/02/2019 Right Foot Tissue AFB Culture: No Acid Fast Bacilli Seen. Preliminary. 12/02/2019 Right Foot Tissue Anaerobic Culture: No Anaerobic Growth at 2 Days. Final. 12/02/2019 Right Foot Tissue Fungus Culture: Fungal Culture in Progress. Preliminary. 12/01/2019 Blood Culture #1: No Growth After 5 Days. Final. 12/01/2019 Blood Culture #2: No Growth After 5 Days. Final. 11/30/2019 Right Foot Wound Aerobic Culture: Normal Chalino After 48 Hours. Final. 11/21/2019 Left Leg Wound Aerobic Culture: Normal Chalino After 48 Hours. Final. 11/20/2019 Right Foot Tissue Aerobic Culture: Moderate Growth Enterobacter cloacae complex, S=Youssef Sensitive. Final. 11/20/2019 Right Foot Tissue Anaerobic Culture: No Anaerobic Growth at 2 Days. Final. 11/20/2019 Right Foot Bone Aerobic Culture: Light Growth Enterobacter Cloacae Complex, S=Youssef Sensitive. Final. 11/20/2019 Right Foot Bone Anaerobic Culture: No Anaerobic Growth at 2 Days. Final Update from previous note Date: 12/12/2019 New labs/results as of last note Update from previous note Tmax: 99.2 Urine Output: 1600 Stool: not recorded Current Antibiotics: Merrem 1,000 mg IV every 12 Hours Previous Antibiotic: Rocephin 2 gm IV every 24 Hours Ancef 2,000 mg IV every 8 Hours Pre/Post Procedure I have personally reviewed the labs and results Test results Laboratory and Additional Data Reviewed: Labs: [facility] 12/12/2019 06:11 Glucose: 167 BUN: 26 Creatinine: 0.89 Sodium: 140 Potassium: 4.3 Total Protein: 6.7 Albumin: 2.5 Alk Phos: 83 AST: 35 ALT: 52 Total Bilirubin: 0.3 CBC 12/12/2019 06:11 WBC: 4.12 RBC: 4.13 Hgb: 10.8 Hct: 35.6 Platelets: 203 Lymphocytes Abs: 0.66 CRP 12/12/2019 06:11 52.4 Current Cultures: 12/10/2019 Right Foot Wound Aerobic Culture: Normal Chalino After 24 Hours. Preliminary. 12/08/2019 Urine Aerobic Culture: No Growth (<1,000 CFU/mL). Final. 12/07/2019 Urine Aerobic Culture on arrival to Nursing Rehab Unit: No Growth (<1,000 CFU/mL). Final. 12/02/2019 Right Foot Tissue Aerobic Culture: Normal Chalino After 48 Hours. Final. 12/02/2019 Right Foot Tissue AFB Culture: No Acid Fast Bacilli Seen. Preliminary. 12/02/2019 Right Foot Tissue Anaerobic Culture: No Anaerobic Growth at 2 Days. Final. 12/02/2019 Right Foot Tissue Fungus Culture: Fungal Culture in Progress. Preliminary. 12/01/2019 Blood Culture #1: No Growth After 5 Days. Final. 12/01/2019 Blood Culture #2: No Growth After 5 Days. Final. 11/30/2019 Right Foot Wound Aerobic Culture: Normal Chalino After 48 Hours. Final. 11/21/2019 Left Leg Wound Aerobic Culture: Normal Chalino After 48 Hours. Final. 11/20/2019 Right Foot Tissue Aerobic Culture: Moderate Growth Enterobacter cloacae complex, S=Youssef Sensitive. Final. 11/20/2019 Right Foot Tissue Anaerobic Culture: No Anaerobic Growth at 2 Days. Final. 11/20/2019 Right Foot Bone Aerobic Culture: Light Growth Enterobacter Cloacae Complex, S=Youssef Sensitive. Final. 11/20/2019 Right Foot Bone Anaerobic Culture: No Anaerobic Growth at 2 Days. Final. Date: 12/11/2019 New labs/results as of last note Update from previous note Tmax: 98.7 Urine Output: 2500 Stool: X1 Current Antibiotics: Rocephin 2 gm IV every 24 Hours until 01/02/2020 Previous Antibiotic: Ancef 2,000 mg IV every 8 Hours Pre/Post Procedure I have personally reviewed the labs and results Test results Laboratory and Additional Data Reviewed: U/A 12/08/2019 Glucose: 150 Blood: Small WBC: 7 Bacteria: Rare Labs: Vitamin D, Total 12/07/2019 04:55 16 B12/Folate 12/07/2019 04:55 B12: 828 Folate: >20.0 Ferritin 12/07/2019 04:55 211 Iron 12/07/2019 04:55 30 CMP 12/07/2019 04:55 Glucose: 243 BUN: 17 Creatinine: 0.86 Sodium: 138 Potassium: 3.9 Total Protein: 6.6 Albumin: 2.4 Alk Phos: 76 AST: 28 ALT: 40 Total Bilirubin: 0.4 CBC 12/07/2019 04:54 WBC: 6.95 Hgb: 11.3 Hct: 36.8 Platelets: 210 Lymphocytes Abs: 0.64 CRP 12/05/2019 07:58 85.3 U/A 12/07/2019 Protein: 30 Glucose: >=500 Blood: Small Leukocyte Esterase: Trace Renal Epithelial: <1 Current Cultures: 12/10/2019 Right Foot Wound Aerobic Culture: Rare WBC. Rare Epithelial Cells. No Organisms Seen. Preliminary. 12/08/2019 Urine Aerobic Culture: No Growth (<1,000 CFU/mL). Final. 12/07/2019 Urine Aerobic Culture on arrival to Nursing Rehab Unit: No Growth (<1,000 CFU/mL). Final. 12/02/2019 Right Foot Tissue Aerobic Culture: Normal Chalino After 48 Hours. Final. 12/02/2019 Right Foot Tissue AFB Culture: No Acid Fast Bacilli Seen. Preliminary. 12/02/2019 Right Foot Tissue Anaerobic Culture: No Anaerobic Growth at 2 Days. Final. 12/02/2019 Right Foot Tissue Fungus Culture: Fungal Culture in Progress. Preliminary. 12/01/2019 Blood Culture #1: No Growth After 5 Days. Final. 12/01/2019 Blood Culture #2: No Growth After 5 Days. Final. 11/30/2019 Right Foot Wound Aerobic Culture: Normal Chalino After 48 Hours. Final. 11/21/2019 Left Leg Wound Aerobic Culture: Normal Chalino After 48 Hours. Final. 11/20/2019 Right Foot Tissue Aerobic Culture: Moderate Growth Enterobacter cloacae complex, S=Youssef Sensitive. Final. 11/20/2019 Right Foot Tissue Anaerobic Culture: No Anaerobic Growth at 2 Days. Final. 11/20/2019 Right Foot Bone Aerobic Culture: Light Growth Enterobacter Cloacae Complex, S=Youssef Sensitive. Final. 11/20/2019 Right Foot Bone Anaerobic Culture: No Anaerobic Growth at 2 Days. Final. Date: 12/08/2019 New labs/results as of last note Update from previous note Tmax: 99.2 Urine Output: 4950 Stool: not recorded Current Antibiotics: Rocephin 2 gm IV every 24 Hours until 01/02/2020 Previous Antibiotic: Ancef 2,000 mg IV every 8 Hours Pre/Post Procedure I have personally reviewed the labs and results Test results Laboratory and Additional Data Reviewed: U/A 12/08/2019 Glucose: 150 Blood: Small WBC: 7 Bacteria: Rare Labs: Vitamin D, Total 12/07/2019 04:55 16 B12/Folate 12/07/2019 04:55 B12: 828 Folate: >20.0 Ferritin 12/07/2019 04:55 211 Iron 12/07/2019 04:55 30 CMP 12/07/2019 04:55 Glucose: 243 BUN: 17 Creatinine: 0.86 Sodium: 138 Potassium: 3.9 Total Protein: 6.6 Albumin: 2.4 Alk Phos: 76 AST: 28 ALT: 40 Total Bilirubin: 0.4 CBC 12/07/2019 04:54 WBC: 6.95 Hgb: 11.3 Hct: 36.8 Platelets: 210 Lymphocytes Abs: 0.64 CRP 12/05/2019 07:58 85.3 U/A 12/07/2019 Protein: 30 Glucose: >=500 Blood: Small Leukocyte Esterase: Trace Renal Epithelial: <1 Current Cultures: 12/07/2019 Urine Aerobic Culture on arrival to Nursing Rehab Unit: No Growth, Incubation Continued.Preliminary. 12/02/2019 Right Foot Tissue Aerobic Culture: Normal Chalino After 48 Hours. Final. 12/02/2019 Right Foot Tissue AFB Culture: No Acid Fast Bacilli Seen. Preliminary. 12/02/2019 Right Foot Tissue Anaerobic Culture: No Anaerobic Growth at 2 Days. Final. 12/02/2019 Right Foot Tissue Fungus Culture: Fungal Culture in Progress. Preliminary. 12/01/2019 Blood Culture #1: No Growth After 5 Days. Final. 12/01/2019 Blood Culture #2: No Growth After 5 Days. Final. 11/30/2019 Right Foot Wound Aerobic Culture: Normal Chalino After 48 Hours. Final. 11/21/2019 Left Leg Wound Aerobic Culture: Normal Chalino After 48 Hours. Final. 11/20/2019 Right Foot Tissue Aerobic Culture: Moderate Growth Enterobacter cloacae complex, S=Youssef Sensitive. Final. 11/20/2019 Right Foot Tissue Anaerobic Culture: No Anaerobic Growth at 2 Days. Final. 11/20/2019 Right Foot Bone Aerobic Culture: Light Growth Enterobacter Cloacae Complex, S=Youssef Sensitive. Final. 11/20/2019 Right Foot Bone Anaerobic Culture: No Anaerobic Growth at 2 Days. Final. Radiology: Left Ankle X-Ray 12/07/2019 1. A new screw internally fixes the base of the 5th metatarsal to near anatomic alignment, however this screw is broken/fractured. 2. 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 Lateral subluxation of the 2nd through 5th metatarsal bases is again noted, as well as pes planus deformity. 3. Milder arthritis is noted in the tibiotalar joint and subtalar joint. 4. Large calcaneal enthesophytes are noted at the insertion sites of the plantar fascia and Achilles tendon. 5. No acute fracture, or other acute bony abnormality is seen. Date: 12/07/2019 New labs/results as of last note Update from previous note Tmax: 99.1 Urine Output: 1800 Stool: not recorded Current Antibiotics: Rocephin 2 gm IV every 24 Hours until 01/02/2020 Previous Antibiotic: Ancef 2,000 mg IV every 8 Hours Pre/Post Procedure I have personally reviewed the labs and results Test results Laboratory and Additional Data Reviewed: Labs: Vitamin D, Total 12/07/2019 04:55 16 B12/Folate 12/07/2019 04:55 B12: 828 Folate: >20.0 Ferritin 12/07/2019 04:55 211 Iron 12/07/2019 04:55 30 CMP 12/07/2019 04:55 Glucose: 243 BUN: 17 Creatinine: 0.86 Sodium: 138 Potassium: 3.9 Total Protein: 6.6 Albumin: 2.4 Alk Phos: 76 AST: 28 ALT: 40 Total Bilirubin: 0.4 CBC 12/07/2019 04:54 WBC: 6.95 Hgb: 11.3 Hct: 36.8 Platelets: 210 Lymphocytes Abs: 0.64 CRP 12/05/2019 07:58 85.3 U/A 12/07/2019 Protein: 30 Glucose: >=500 Blood: Small Leukocyte Esterase: Trace Renal Epithelial: <1 Current Cultures: 12/02/2019 Right Foot Tissue Aerobic Culture: Normal Chalino After 48 Hours. Final. 12/02/2019 Right Foot Tissue AFB Culture: No Acid Fast Bacilli Seen. Preliminary. 12/02/2019 Right Foot Tissue Anaerobic Culture: No Anaerobic Growth at 2 Days. Final. 12/02/2019 Right Foot Tissue Fungus Culture: Fungal Culture in Progress. Preliminary. 12/01/2019 Blood Culture #1: No Growth After 5 Days. Final. 12/01/2019 Blood Culture #2: No Growth After 5 Days. Final. 11/30/2019 Right Foot Wound Aerobic Culture: Normal Chalino After 48 Hours. Final. 11/21/2019 Left Leg Wound Aerobic Culture: Normal Chalino After 48 Hours. Final. 11/20/2019 Right Foot Tissue Aerobic Culture: Moderate Growth Enterobacter cloacae complex, S=Youssef Sensitive. Final. 11/20/2019 Right Foot Tissue Anaerobic Culture: No Anaerobic Growth at 2 Days. Final. 11/20/2019 Right Foot Bone Aerobic Culture: Light Growth Enterobacter Cloacae Complex, S=Youssef Sensitive. Final. 11/20/2019 Right Foot Bone Anaerobic Culture: No Anaerobic Growth at 2 Days. Final. Date: 12/06/2019 New labs/results as of last note Update from previous note Tmax: 99 Urine Output: 1250 Stool: not recorded Current Antibiotics: Rocephin 2 gm IV every 24 Hours until 01/02/2020 Previous Antibiotic: Ancef 2,000 mg IV every 8 Hours Pre/Post Procedure I have personally reviewed the labs and results Test results Laboratory and Additional Data Reviewed: Labs: CBC 12/05/2019 07:58 WBC: 7.98 Hgb: 11.4 Hct: 36.3 Platelets: 228 Lymphocytes Abs: 0.52 CMP 12/05/2019 07:58 Glucose: 223 BUN: 19 Creatinine: 0.86 Sodium: 139 Potassium: 4.1 Total Protein: 6.4 Albumin: 2.4 Alk Phos: 75 AST: 20 ALT: 31 Total Bilirubin: 0.4 CRP 12/05/2019 07:58 85.3 Current Cultures: 12/02/2019 Right Foot Tissue Aerobic Culture: Normal Chalino After 48 Hours. Final. 12/02/2019 Right Foot Tissue AFB Culture: No Acid Fast Bacilli Seen. Preliminary. 12/02/2019 Right Foot Tissue Anaerobic Culture: No Anaerobic Growth at 2 Days. Final. 12/02/2019 Right Foot Tissue Fungus Culture: Fungal Culture in Progress. Preliminary. 12/01/2019 Blood Culture #1: No Growth After 5 Days. Final. 12/01/2019 Blood Culture #2: No Growth After 5 Days. Final. 11/30/2019 Right Foot Wound Aerobic Culture: Normal Chalino After 48 Hours. Final. 11/21/2019 Left Leg Wound Aerobic Culture: Normal Chalino After 48 Hours. Final. 11/20/2019 Right Foot Tissue Aerobic Culture: Moderate Growth Enterobacter cloacae complex, S=Youssef Sensitive. Final. 11/20/2019 Right Foot Tissue Anaerobic Culture: No Anaerobic Growth at 2 Days. Final. 11/20/2019 Right Foot Bone Aerobic Culture: Light Growth Enterobacter Cloacae Complex, S=Youssef Sensitive. Final. 11/20/2019 Right Foot Bone Anaerobic Culture: No Anaerobic Growth at 2 Days. Final. Pathology: 12/02/2019 A. Soft tissue, Right Foot, excision: Non-specific ulcer. Date: 12/05/2019 New labs/results as of last note Update from previous note Tmax: 98.8 Urine Output: 2900 Stool: not recorded Current Antibiotics: Rocephin 2 gm IV every 24 Hours Previous Antibiotic: Ancef 2,000 mg IV every 8 Hours Pre/Post Procedure I have personally reviewed the labs and results Test results Laboratory and Additional Data Reviewed: Labs: CBC 12/05/2019 07:58 WBC: 7.98 Hgb: 11.4 Hct: 36.3 Platelets: 228 Lymphocytes Abs: 0.52 CMP 12/05/2019 07:58 Glucose: 223 BUN: 19 Creatinine: 0.86 Sodium: 139 Potassium: 4.1 Total Protein: 6.4 Albumin: 2.4 Alk Phos: 75 AST: 20 ALT: 31 Total Bilirubin: 0.4 CRP 12/05/2019 07:58 85.3 Current Cultures: 12/02/2019 Right Foot Tissue Aerobic Culture: Normal Chalino After 48 Hours. Final. 12/02/2019 Right Foot Tissue AFB Culture: No Acid Fast Bacilli Seen. Preliminary. 12/02/2019 Right Foot Tissue Anaerobic Culture: No Anaerobic Growth at 2 Days. Final. 12/02/2019 Right Foot Tissue Fungus Culture: Fungal Culture in Progress. Preliminary. 12/01/2019 Blood Culture #1: No Growth After 48 Hours. Preliminary. 12/01/2019 Blood Culture #2: No Growth After 48 Hours. Preliminary. 11/30/2019 Right Foot Wound Aerobic Culture: Normal Chalino After 48 Hours. Final. 11/21/2019 Left Leg Wound Aerobic Culture: Normal Chalino After 48 Hours. Final. 11/20/2019 Right Foot Tissue Aerobic Culture: Moderate Growth Enterobacter cloacae complex, S=Youssef Sensitive. Final. 11/20/2019 Right Foot Tissue Anaerobic Culture: No Anaerobic Growth at 2 Days. Final. 11/20/2019 Right Foot Bone Aerobic Culture: Light Growth Enterobacter Cloacae Complex, S=Youssef Sensitive. Final. 11/20/2019 Right Foot Bone Anaerobic Culture: No Anaerobic Growth at 2 Days. Final. Current Antibiotics: Rocephin 2 gm IV every 24 Hours Previous Antibiotic: Ancef 2,000 mg IV every 8 Hours Pre/Post Procedure I have personally reviewed the labs and results Test results Laboratory and Additional Data Reviewed: Results from last 7 days Lab Units 12/01/19 0648 11/30/19 1245 11/29/19 0655 SODIUM mmol/L 140 140 142 POTASSIUM mmol/L 5.0 4.9 5.1 CHLORIDE mmol/L 106 105 107 BUN mg/dL 22 24 36* CREATININE mg/dL 0.98 0.94 1.12 GLUCOSE mg/dL 223* 127* 108* CALCIUM mg/dL 9.1 9.3 9.3 Results from last 7 days Lab Units 12/01/19 0635 11/30/19 1245 WBC K/mcL 8.56 8.72 HGB g/dL 11.2* 10.8* HCT % 35.6* 35.4* PLT K/mcL 232 243 Results from last 7 days Lab Units 11/30/19 1245 ALK PHOS U/L 67 BILIRUBIN TOTAL mg/dL 0.3 TOTAL PROTEIN g/dL 6.5 ALTR U/L 56 AST U/L 42 Current Cultures: 12/02/2019 Right Foot Tissue Aerobic Culture: Normal Chalino After 24 Hours. Preliminary. 12/02/2019 Right Foot Tissue AFB Culture: No Acid Fast Bacilli Seen. Preliminary. 12/01/2019 Blood Culture #1: No Growth After 48 Hours. Preliminary. 12/01/2019 Blood Culture #2: No Growth After 48 Hours. Preliminary. 11/30/2019 Right Foot Wound Aerobic Culture: Normal Chalino After 48 Hours. Final. 11/21/2019 Left Leg Wound Aerobic Culture: Normal Chalino After 48 Hours. Final. 11/20/2019 Right Foot Tissue Aerobic Culture: Moderate Growth Enterobacter cloacae complex, S=Youssef Sensitive. Final. 11/20/2019 Right Foot Tissue Anaerobic Culture: No Anaerobic Growth at 2 Days. Final. 11/20/2019 Right Foot Bone Aerobic Culture: Light Growth Enterobacter Cloacae Complex, S=Youssef Sensitive. Final. 11/20/2019 Right Foot Bone Anaerobic Culture: No Anaerobic Growth at 2 Days. Final. Recent Cultures: 05/30/2019 Right Foot Tissue Aerobic Culture: Normal Chalino After 48 Hours. Final. 05/30/2019 Right Foot Tissue Anaerobic Culture: No Anaerobic Growth at 2 Days. Final. 03/23/2019 Right Foot Wound Aerobic Culture: Heavy Growth Raoultella [place], R=Ampicillin, S=Remainder of panel. 03/09/2019 Right Foot Wound Aerobic Culture: Normal Chalino After 48 Hours. Final. 02/09/2019 Right Foot Wound Aerobic Culture: Normal Chalino After 48 Hours. Final. 01/19/2019 Right Toe Two Wound Aerobic Culture: Heavy Growth Enterobacter Cloacae Complex, S=Youssef Sensitive. Final. Radiology: Right Foot X-Ray 12/02/2019 Intraoperative fluoroscopy provided. Severe bony deformity of the foot as described. Please correlate with operative note. Chest X-Ray 11/23/2019 1. Right arm PICC line in place with tip in superior vena cava. 2. No acute pulmonary disease. 3. Cardiomegaly with evidence of prior open heart surgery. 4. No acute osseous abnormality Right Foot X-Ray 11/20/2019 IMPRESSION: Intraoperative fluoroscopy for localization during right foot and ankle reconstruction and fixation. Please see operative report for details. Left Ankle X-Ray Ordered 11/20/2019 Right Foot X-Ray 11/20/2019 FINDINGS: Two views of the right foot were obtained. There are advanced changes of Charcot arthropathy throughout the right midfoot which appears similar compared to prior examination. There are postsurgical changes of resection of the right 2nd toe proximal phalangeal head. IMPRESSION: 1. Advanced changes of Charcot arthropathy throughout the right midfoot which appear unchanged compared to prior examination. Chest AP/PA X-Ray 11/16/2019 1. No acute pulmonary disease. 2. Cardiomegaly, with evidence of prior open heart surgery. 3. Multilevel degenerative changes of the thoracic spine. MR Right Foot 05/19/2019 1. There is a superficial soft tissue ulcer again seen along the plantar aspect of the midfoot, butthere is no evidence of abscess or osteomyelitis in this region. 2. Stable appearance of the sequela of severe neuropathic arthropathy of the midfoot with collapse of the midfoot again seen resulting in a rocker bottom deformity. 3. A moderate amount of diffuse subcutaneous edema along the dorsum of the foot may be due to reactive edema or a cellulitis, but this is nonspecific. Right Foot X-Ray 04/28/2019 1. Soft tissue irregularity involving the plantar aspect of the foot likely representing the reported ulcer. No bony destruction to suggest osteomyelitis. 2. No evidence of radiopaque foreign body. 3. Stable deformity and degenerative changes involving the midfoot. Findings are consistent with Charcot joint. NM White Cell Scan Spot Limited 03/08/2017 FINDINGS: A focal area of intense abnormal white blood cell migration is noted central plantar aspect of the right foot corresponding to the area of the wound demonstrated radiographically. No other focus of white blood cell migration abnormality is evident within the right or left foot. IMPRESSION: Focal area of abnormal white blood cell migration at the plantar aspect central right foot may be at the wound itself or may be involving the bone with associated fracture as demonstrated radiographically. Anatomic detail is insufficient for differentiation between the two. Renal U/S 03/07/2017 IMPRESSION: Severe thickening of the urinary bladder wall. This could be due to outlet obstruction with hypertrophy of the wall. If there is no such history, this should be evaluated with cystoscopy. CVPS: Arterial Doppler: not on file Venous Doppler: not on file 2D Echo 11/23/2019 Moderate LV enlargement with LVH. Global systolic dysfunction with segmental features. LVEF 30% Elevated LV filling pressures RV is dilated with severe RV dysfunction Mild mitral annular calcification, mild thickening of the aortic valve without hemodynamically significant valvular disease There is a atrial level right to left shunt identified with saline contrast with free breathing andValsalva most likely via PFO LVEF unchanged from to previous echo from 2017 Surgeries: Please see above for surgical history Procedure: Right Foot I&D ADJUSTMENT EXTERNAL FIXATOR Date: 12/02/2019 Surgery: Alena Mora DPM Procedure: RIGHT FOOT RECONSTRUCTION WITH APPLICATION OF CIRCULAR STATIC EXTERNAL FIXATION Date: 11/20/2019 Surgeon: Alena Mora DPM Procedure: ARTHROPLASTY 2ND TOE RIGHT FOOT Date: 01/25/2019 Surgeon: Rosa M Rboles DPM Pathology: not on file * Phoebe Duncan RN - 02/23/2020 7:30 AM EDT Date: 02/23/2020 No new labs/ results as of last note: 02/16/2020 02/16/2020 X-ray Right foot FINDINGS: There is extensive hardware from an external fixator present. This obscures fine bony detail.A single percutaneous pin is seen entering the plantar aspect of the foot through the calcaneus, talus, and entering the distal tibia. A 2nd slightly larger metallic tommy is seen entering the posterior calcaneus extending into the talus. Degenerative changes are present in the midfoot. There is soft tissue edema. IMPRESSION: Study is limited due to overlying external fixator. No significant change in alignment. 02/16/2020 X-ray right tib/fib FINDINGS: There is extensive hardware from an external fixator present. This obscures fine bony detail.A single percutaneous pin is seen entering the plantar aspect of the foot through the calcaneus, talus, and entering the distal tibia. A 2nd slightly larger metallic tommy is seen entering the posterior calcaneus extending into the talus. Degenerative changes are present in the midfoot. There is soft tissue edema. IMPRESSION: Study is limited due to overlying external fixator. No significant change in alignment. Update from previous note Current Antibiotic: Doxycycline 100 mg PO daily for 6 weeks - Started 01/03/2020 Previous Antibiotic: Doxycycline 100 mg BID for 6 weeks - Start 01/03/2020 Merrem 1,000 mg IV every 12 Hours until January 02, 2020 ([facility]) Rocephin 2 gm IV every 24 Hours Ancef 2,000 mg IV every 8 Hours Pre/Post Procedure Dressings: Right foot - Clean pins and wires with alcohol and paint with betadine. Kb to right great toe. Per Dr. Mora. Current culture: 12/28/2019 - Right foot, aerobic culture: Normal Chalino after 48 hours. Recent Cultures: 12/21/2019 - Right foot, aerobic - normal chalino after 48 hours 12/21/2019 - Right foot, anaerobic: No anaerobic growth at 2 days. 12/10/2019 Right Foot Wound Aerobic Culture: Normal Chalino After 48 Hours. Final 12/10/2019 Right foot wound, anaerobic culture: No anaerobic growth at 2 days. Final 12/08/2019 Urine Aerobic Culture: No Growth (<1,000 CFU/mL). Final. 12/07/2019 Urine Aerobic Culture on arrival to Nursing Rehab Unit: No Growth (<1,000 CFU/mL). Final. 12/02/2019 Right Foot Tissue Aerobic Culture: Normal Chalino After 48 Hours. Final. 12/02/2019 Right Foot Tissue AFB Culture: No Acid Fast Bacilli after 8 weeks. Final. 12/02/2019 Right Foot Tissue Anaerobic Culture: No Anaerobic Growth at 2 Days. Final. 12/02/2019 Right Foot Tissue Fungus Culture: No fungus isolated at 4 weeks. Final. 11/30/2019 Right Foot Wound Aerobic Culture: Normal Chalino After 48 Hours. Final. 11/21/2019 Left Leg Wound Aerobic Culture: Normal Chalino After 48 Hours. Final. 11/20/2019 Right Foot Tissue Aerobic Culture: Moderate Growth Enterobacter cloacae complex, S=Youssef Sensitive. Final. 11/20/2019 Right Foot Tissue Anaerobic Culture: No Anaerobic Growth at 2 Days. Final. 11/20/2019 Right Foot Bone Aerobic Culture: Light Growth Enterobacter Cloacae Complex, S=Youssef Sensitive. Final. 11/20/2019 Right Foot Bone Anaerobic Culture: No Anaerobic Growth at 2 Days. Final documented in this encounter* Alena Mora DPM - 02/23/2020 9:48 AM EDT Associated Order(s): Wound Debridement Post-Procedure Diagnose(s): Foot ulcer with fat layer exposed, right (HCC); Dehiscence of operativewound, subsequent encounter; Charcot's joint of right foot Subjective: Patient is a pleasant 59-year-old male who presents to the wound care center for follow-up evaluation status post removal of external fixation for Charcot reconstruction (date of surgery 02/20/2020). Patient has been nonweightbearing in a cam boot as instructed. He has been applying dry sterile dressing, Kerlix and Zechariah bandage daily. No new pedal complaints.Denies fevers, chills, nausea, vomiting,chest pain, shortness of breath, or any other constitutional symptoms. Objective: Vascular: DP and PT pulses are palpable 2/4. Cap refill time is brisk to distal digits. Skin temperature is warm to warm from proximal tibial tuberosity to distal digits. +1 pitting edema noted to the right foot. Neuro: Gross sensation is intact. Protective sensation is absent. Dermatologic: The right foot plantar surgical incision site is well healed with exception of a small central medial dehiscence measuring 1.5 x 0.3 x 0.3 cm. Maceration noted surrounding that area. All pin sites are healing as expected without any signs of infection. The previously noted blister on the distal tuft of the right great toe with a stable eschar noted. A partial thickness ulceration noted to right 3rd toe secondary to blister has resolved. No sign of infection. Musculoskeletal: Patient is able to wiggle digits. Compartments are soft and compressible. No calf pain. Assessment: Right lower extremity external fixation removal (Date of surgery 02/23/2020 Dr. Mora). Right midfoot wedge resection and application of external fixator for Charcot reconstruction (Date of surgery 11/20/2019 -Dr. Mora). Charcot arthropathy, midfoot, right foot Diabetes with peripheral neuropathy Hemorrhagic blister, right great toe --> deep tissue injury --> a loose eschar --> subcutaneous ulceration -->stable eschar Dehiscence to central incision site --> down to subcutaneous layer --> re-opened Blister 3rd toe, right foot - resolved Plan: Patient was seen and evaluated. Discussed all clinical findings. Patient is doing well overall. Prior radiographs of the right foot were evaluated. Good alignment noted within the midfoot with closure of the midfoot wedge and recreation of the medial longitudinal arch. Good alignment of the hindfoot given the severity of his charcot deformity. The plantar right foot central incision dehisced site has reopened. Debridement was necessary to remove nonviable tissue and macerated areas. See procedure note All pin sites are healing as expected. Applied 4 x 4's, Kerlix, Zechariah bandage from toes to knee. Home care nursing are to change right foot plantar wound using Kb, dry sterile dressing once every other day. Patient is to keep nonweightbearing to the right lower extremity at all times. He is to keep everything clean and dry. All questions were answered to satisfaction. Patient is to return to clinic in 1 week for follow-up evaluation Alena Mora DPM Wound Care Debridement Timeout: Verbal Consent obtained?: Yes Written Consent obtained?: Yes Consent given by: Patient Immediately prior to procedure a time out was called to verify the correct patient, procedure, equipment, support service tech and site/side marked as required Debridement Procedure: Debridement Performed for Assessment: Right plantar foot Performed by: Physician Debridement Type: Surgical Pain Control: N/A Level: Skin/Subcutaneous Tissue Post Debridement Measurements: Length (cm): 1.5 Width (cm): 0.3 Depth (cm): 0.3 Area (sq cm): 0.45 Volume (cm3): 0.14 Percent Debrided: 100 Total Area Debrided (sq cm): 0.45 Tissue and other material debrided: Subcutaneous Devitalized tissue debrided: Biofilm and Slough Instrument: Curette Bleeding: Minimal Hemostasis Achieved: Pressure Procedural Pain: Insensate Post Procedural Pain: Insensate Response to Treatment: Procedure was tolerated well documented in this encounter* Scottie Hall PSA - 02/29/2020 1:32 PM EDT Patient called today for COVID-19 screening regarding upcoming appointment in wound clinic. Have you been in close contact with anyone confirmed to have coronavirus/COVID- 19 in the past 14 days? No Have you traveled out of state or internationally in the past 14 days? No In the last 24 hours have you had any of the following symptoms? Fever over 100 F No Cough No Shortness of breath or difficulty breathing No Chills or repeated shaking with chills No Muscle pain, headache, or sore throat No Any loss of taste or smell No Diarrhea No documented in this encounter* Phoebe Duncan RN - 03/01/2020 7:45 AM EDT Date: 03/01/2020 No new labs/ results as of last note: Update from previous note Current Antibiotic: Doxycycline 100 mg PO daily for 6 weeks - Started 01/03/2020 Previous Antibiotic: Doxycycline 100 mg BID for 6 weeks - Start 01/03/2020 Merrem 1,000 mg IV every 12 Hours until January 02, 2020 ([facility]) Rocephin 2 gm IV every 24 Hours Ancef 2,000 mg IV every 8 Hours Pre/Post Procedure Dressings: Right foot - Kb. Two, 4-inch zechariah wraps. Per Dr. Mora. Current culture: 12/28/2019 - Right foot, aerobic culture: Normal Chalino after 48 hours. Recent Cultures: 12/21/2019 - Right foot, aerobic - normal chalino after 48 hours 12/21/2019 - Right foot, anaerobic: No anaerobic growth at 2 days. 12/10/2019 Right Foot Wound Aerobic Culture: Normal Chalino After 48 Hours. Final 12/10/2019 Right foot wound, anaerobic culture: No anaerobic growth at 2 days. Final 12/08/2019 Urine Aerobic Culture: No Growth (<1,000 CFU/mL). Final. 12/07/2019 Urine Aerobic Culture on arrival to Nursing Rehab Unit: No Growth (<1,000 CFU/mL). Final. 12/02/2019 Right Foot Tissue Aerobic Culture: Normal Chalino After 48 Hours. Final. 12/02/2019 Right Foot Tissue AFB Culture: No Acid Fast Bacilli after 8 weeks. Final. 12/02/2019 Right Foot Tissue Anaerobic Culture: No Anaerobic Growth at 2 Days. Final. 12/02/2019 Right Foot Tissue Fungus Culture: No fungus isolated at 4 weeks. Final. 11/30/2019 Right Foot Wound Aerobic Culture: Normal Chalino After 48 Hours. Final. 11/21/2019 Left Leg Wound Aerobic Culture: Normal Chalino After 48 Hours. Final. 11/20/2019 Right Foot Tissue Aerobic Culture: Moderate Growth Enterobacter cloacae complex, S=Youssef Sensitive. Final. 11/20/2019 Right Foot Tissue Anaerobic Culture: No Anaerobic Growth at 2 Days. Final. 11/20/2019 Right Foot Bone Aerobic Culture: Light Growth Enterobacter Cloacae Complex, S=Youssef Sensitive. Final. 11/20/2019 Right Foot Bone Anaerobic Culture: No Anaerobic Growth at 2 Days. Final * Maria Isabel Awad MD - 03/01/2020 7:45 AM EDT 12/04/2019 Patient Name: Dyllan Huertas Admit Date: MR #: [id number] : 1960 Physicians: Rohit Aguilar MD (Family); No ref. provider found (Referring) Assessment and Plan: Number 1 November [id number] Impression Right foot ulcer status post surgical intervention Severe Charcot deformity status post surgical intervention Enterobacter cloaca infection and gram-negative infection see cultures below RaullTela which is a gram-negative Acute osteomyelitis bone culture on 11/20/2019+ for the same pathogen that was present in January 2019is Enterobacter cloaca pansensitive RAJINDER none on chart 11/24/2019 Osteomyelitis as bone culture is positive from 11/20/2019 for Enterobacter cloaca 11/30/2019 New drainage from the pin site Elevated sed rate Elevated CRP Osteomyelitis right foot 12/01/2019 Osteomyelitis right foot Delayed healing of the plantar foot postop wound Cellulitis of the foot 12/04/2019 Status post surgical intervention with incision and drainage by Dr. Mora on 12/02/2019 cultures now with normal chalino AFB and fungus negative 12/05/2019 Sed rate 85 CRP 85 Per rehab physician there is a risk for the left ankle issues especially with diabetic neuropathy in the left foot and he has had right foot surgery 12/06/2019 OR cultures negative elevated CRP could be just postop We will continue IV antibiotics as planned till January 01 Rocephin 2 g every 24 hours 12/11/2019 Right foot wound with some maceration drainage 12/12/2019 CRP improving 12/21/2019 Patient is home now last night he was having difficulty flushing the line PICC line not functioning well because the picc team Plantar foot wound no cellulitis no maceration pin sites look excellent 2019 Right foot wound postop healing remarkably cellulitis improved Patient completing treatment for acute osteomyelitis Enterobacter infection Minimal drainage at the incision site will culture today January 12, 2020 Right second toe and great toe superficial ulceration present Right plantar foot wound excellent with almost healing no drainage no redness Sed rate 33 last CRP 6.4 12/28/2019 much better than before last culture normal chalino from December 27 January 19, 2020 Osteomyelitis right foot Charcot with correction surgery done Postop wound with delayed healing January 26, 2020 Postop right plantar wound continues to improve Last culture normal chalino on December 27 last lab work was December 27 CRP 6.5 We will do CBC CMP sed rate CRP at next visit in the wound clinic orders are in the computer from I will see him in 2 weeks February 09, 2020 Patient almost completing 3 months of total antibiotic treatment was on antibiotics prior to that also Plantar foot postop wound has not healed up completely yet being debrided periodically by podiatry Plain x-ray was done on January 12, 2020 I looked at the film still shows significant destruction I do not know if you are seeing any fusion yet I will need to talk with podiatry on that CBC CMP sed rate CRP has been ordered results are still pending this is to decide the duration of antibiotic treatment February 16, 2020 Plantar foot wound is healed up completely CRP is normal Sed rate fluctuating some No evidence of cellulitis February 22 The frame has been removed on the right leg Plantar foot wound has healed up completely on the right foot Mar 01 2020 foot wound appears excellent stayed healed pin sites without any evidence of infection Plan March 01, 2020 Doxycycline 100 mg p.o. daily till June 03 suppressive treatment Patient is going to have extensive surgery 1 more time fusion of the ankle and subtalar joint At that point we will need to consider angeli-procedure 4 weeks of intravenous antibiotic have discussed with the patient as well as podiatry February 23, 2020 Continue doxycycline 100 mg p.o. per day till June 03 as suppressive treatment for gram-negative infection Enterobacter cloaca K and it will also cover some gram positives Dressings per Dr. Mora Return to see me and Dr. Mora in 2 weeks February 16, 2020 Doxycycline 100 mg p.o. daily till June 03 which is 6 months he may need to go up to 1 year because he did have prolonged infection with osteomyelitis of the right foot details per my previous dictation He has enough supply for now at least till the next visit Patient's external fixator to come out next week Return to see myself and Dr. Mora in the wound clinic in 2 weeks I have discussed with podiatry February 09, 2020 CBC CMP sed rate CRP today Doxycycline 100 mg p.o. daily suppressive treatment continued at least till March 03 for now I may need to go if I decide up to 6 months it would be till June 03 And if it is 1 year it will be till November 2020 It all depends on what podiatry sees on the x-rays and discusses with me what the rec needs would be I will discuss with Dr. Mora Return to see me and Dr. Mora in 2 weeks January 26, 2020 Doxycycline 100 mg p.o. once a day suppressive treatment Local dressings per Dr. Mora The least I would consider continuing the doxycycline would be up to February [address] Mora January 19, 2020 Patient has received 6 weeks of IV antibiotics Followed by 2 weeks of oral antibiotic Will decrease doxycycline to 100 mg p.o. once a day Dressings per Dr. Mora Revisit next week I have discussed with Dr. Mora January 12, 2020 Discontinue PICC line was done on January 01 Discontinue IV meropenem Doxycycline 100 g p.o. twice daily for 2 months I will give 30 days with 1 refill Local dressings per Dr. Mora Revisit 2 weeks for me with Dr. Mora 12/28/2019 Meropenem 1 g IV twice daily till January 01 which will be 6 weeks of treatment Labs could not be drawn at home because of difficulty for peripheral draw I did not want him to drive from the line because of risk of clotting We will draw them here today After that we will give him doxycycline 100 mg p.o. twice daily for 6 weeks to make 3 months treatment 12/21/2019 IV meropenem 1 g twice daily till January 01 Picc team to evaluate the PICC line consider another midline if needed Revisit 3 weeks for me 12/18/2019 OPAT referral IV meropenem 1 g every 12 till January 01 Home IV antibiotic by [facility] Any dressing orders would be per Dr. Mora CBC CMP sed rate CRP every Wednesday12/14/2019 and 12/15/2019 Continue IV meropenem till January 01 if he can manage to do that Await a picture by podiatry upon dressing change today I have discussed with podiatry Will plan for CBC CMP sed rate CRP next week 12/12/2019 Patient tolerating the meropenem Will await Dr. Mora to check the dressing on the wound at her next rounds Discontinue Rocephin Start meropenem 1 g IV every 12 for the Enterobacter and the other gram-negative that he had seen in the cultures especially with the extensive surgery that was done and he had some drainage on the weekend Continue IV antibiotics till January 01 CBC CMP sed rate CRP Will discuss with Dr. Lopez and Dr. Mora 12/08/2019 Rocephin continued till January 01 Urinary retention to be evaluated by Dr. Lopez Will await for Dr. Mora to do the dressings 12/07/2019 Rocephin 2 g IV 24 hours till January 01 Discontinue Schulte catheter CBC CMP sed rate CRP on Wednesday12/06/2019 Rocephin 2 g to 24 hours till January 01 CBC CMP sed rate CRP periodically Transfer to rehab he has been accepted Will follow the patient in rehab with Dr. Lopez and Dr. Mora 12/05/2019 Rocephin 2 g IV 24 hours continue till January 01 because of the second surgery Elevated sed rate CRP will be followed Await transfer to rehab if approved and bed available 12/04/2019 Rocephin 2 g IV every 24 hours CBC CMP sed rate CRP Rehab referral with Dr. Lopez here if possible We will discuss with podiatry I have discussed with hospitalist OR cultures normal chalino negative AFB and fungus Blood cultures negative so far 12/01/2019 Continue Rocephin till further cultures available CBC CMP sed rate CRP Blood cultures x2 half an hour apart He did bleed well even in the wound clinic yesterday at some point will order arterial Dopplers I have discussed with podiatry at length 11/30/2019 Culture the pin site that is bleeding and draining Follow-up CBC Liver function test Rocephin 2 g IV every 24 hours continue till December 18 May need to go up to additional 2 weeks afterMarch 17 which will be January 01 we will decide based on lab results and clinical response If the culture of the pin site shows any additional pathogens may need to readmit for additional IVantibiotics and streamlining treatment Revisit 1 week both I have discussed with podiatry Chief Complaint/Reason for Visit: I am seeing this patient at the request of Dr. Boogie Phan MD. I have reviewed the current hospital record, available laboratory, cardiology and imaging studies as well as available out patient records. History of Present Illness: Admission H&P by Boogie Phan MD on 11/30/2019: Dyllan Huertas is a 59 y.o. male presenting from home with h/o diabetes on disability since 2014 related to a Charcot foot and diabetes developed an ulcer in the beginning of 2018 was being followed by Dr. Robles at the office we have cultures from last year in January with Enterobacter and since then culture with gram-negative bacteria also was seen by Dr. Mora was found to have severe Charcot a corrective surgery was done with placement of an external fixator on 11/20. Today at wound clinic follow up was found to have increased drainage from one of the pin sites, being admitted for continued IV ATB and possible OR/ exploration in am. Exam: Tmax: 99 Urine Output: 2000 Stool: not recorded There were no vitals filed for this visit. Allergies: no known allergies. Current Outpatient Medications: alteplase (CATH AMANDO) 2 mg injection, Instill 2mL into clotted IV line as needed for brake liner. May repeat as needed. Do not use on Peripheral or Midlines ., Disp: 2 mL, Rfl: 52 calcium carbonate 400 mg Chew, Chew and Swallow 1,000 mg daily ., Disp: , Rfl: carvediloL (COREG) 12.5 MG tablet, Take 1 (one) tablet (12.5 mg total) by mouth 2 (two) times a day., Disp: 60 tablet, Rfl: 0 docusate sodium (COLACE) 100 MG capsule, Take 100 mg by mouth daily ., Disp: , Rfl: doxycycline hyclate (VIBRAMYCIN) 100 MG capsule, Take 1 (one) capsule (100 mg total) by mouth 2 (two) times a day Stay out of the sun. ., Disp: 60 capsule, Rfl: 1 FENOFIBRATE MICRONIZED ORAL, Take 160 mg by mouth daily ., Disp: , Rfl: finasteride (PROSCAR) 5 mg tablet, Take 2.5 mg by mouth every night at bedtime Wednesday,WED,WED ., Disp: , Rfl: gabapentin (NEURONTIN) 300 MG capsule, gabapentin GABAPENTIN 300 MG CAPS One tablet by mouth daily GABAPENTIN [id number] Sebastián Dailey MD 06-15-2017 [facility] ([id number]), Disp: , Rfl: heparin, porcine, PF, 100 unit/mL Syrg, For Open Ended Midline/PICC/CVC/Port: Flush with 5ml heparin as final flush after each use, weekly if not used. Use 3ml for Peripheral IV ., Disp: 100 Syringe,Rfl: 52 insulin NPH (HumuLIN,NovoLIN) 100 unit/mL injection, Take 30 units with breakfast, and 26 units at bedtime ., Disp: 20 mL, Rfl: 12 insulin regular (HumuLIN R, NovoLIN R) 100 unit/mL injection, Take 12 units three times daily before meals ., Disp: 20 mL, Rfl: 5 levothyroxine (SYNTHROID, LEVOTHROID) 112 MCG tablet, once daily ., Disp: , Rfl: magnesium oxide (MAG-OX) 400 mg (241.3 mg magnesium) tablet, Take 400 mg by mouth daily ., Disp: , Rfl: melatonin 5 mg Tab, Take 10 mg by mouth daily ., Disp: , Rfl: metFORMIN (GLUCOPHAGE-XR) 500 MG 24 hr tablet, 1,000 mg 2 (two) times a day ., Disp: , Rfl: multivitamin (THERAGRAN) per tablet, Take 1 tablet by mouth daily ., Disp: , Rfl: nitroGLYCERIN (NITROSTAT) 0.4 MG SL tablet, Place 1 (one) tablet (0.4 mg total) under the tongue every 5 (five) minutes as needed for chest pain , if no relief after 3 doses call 911 ., Disp: 90 tablet, Rfl: 12 rosuvastatin (CRESTOR) 20 MG tablet, 20 mg daily ., Disp: , Rfl: tamsulosin (FLOMAX) 0.4 mg capsule, tamsulosin TAMSULOSIN HCL 0.4 MG CAPS One tablet by mouth [id number] TAMSULOSIN HCL [id number] Sebastián Dailey MD 06-15-2017 [facility] ([id number]), Disp: , Rfl: PMH/PSH/SH/FH reviewed, no change except: Status post surgical intervention by Dr. Mora on 12/02/2019 12/05/2019 Patient was seen by rehab physician rehab evaluation in progress patient's left ankle is at risk because of right foot surgery and diabetic neuropathy in the left foot also 12/07/2019 patient is now in rehab Review of Systems: All systems were reviewed and negative except: Denies any fever chills no pain in the right leg and foot 12/06/2019 denies any fever chills or diarrhea 12/08/2019 Schulte had to be reinserted for urinary increase residual 12/11/2019 Dressing was changed by Dr. Mora on Wednesday there was some drainage culture was done there was some maceration culture result is normal chalino Dr. Mora's note was reviewed by me Medications Reviewed. Chart Reviewed. BP (!) 143/71 Pulse 86 Temp 97.6 F (36.4 C) (Tympanic) Resp 16 Exam Findings: Constitutional: HENT: Pupils reactive head: No oral candidiasis Eyes: No icterus Neck: Supple Cardiovascular: Heart S1-S2 2 by systolic murmur present no S3 Murmur Pulmonary/Chest: Clear Abdominal: Soft Musculoskeletal: No calf tenderness on the right leg Neurological: Has diabetic neuropathy with Charcot is able to wiggle the toes Skin no redness or cellulitis noted on the plantar foot area Schulte: Being managed by urology he sees Dr. Izquierdo on April 02 IV: None other: Pins are removed pin sites have no pus the external fixator has been removed Performed wound has no drainage Wound (Outpatient Only) 03/31/19 Foot Anterior;Right;Plantar (Active) Wound Length (cm) 0 cm 03/01/2020 7:00 AM Wound Width (cm) 0 cm 03/01/2020 7:00 AM Wound Depth (cm) 0.3 cm 02/09/2020 8:22 AM Wound Surface Area (cm^2) 0 cm^2 03/01/2020 7:00 AM Wound Volume (cm^3) 0.18 cm^3 02/09/2020 8:22 AM Area % Change -100 03/01/2020 7:00 AM Volume % Change 0 03/01/2020 7:00 AM Tunneling Maximum Distance (cm) 0 cm 03/01/2020 7:00 AM Tunneling Position (o'clock) 0 03/01/2020 7:00 AM Undermining Maximum Distance (cm) 1 0 cm 03/01/2020 7:00 AM Undermining Starting Position (o'clock) 1 0 03/01/2020 7:00 AM Undermining Ending Position (o'clock) 1 0 03/01/2020 7:00 AM Wound Encounter Subsequent 03/01/2020 7:00 AM Wound Progress Improving 03/01/2020 7:00 AM Non-staged Wound Description Partial thickness 02/09/2020 7:00 AM Drainage Amount None 03/01/2020 7:00 AM Drainage Description Yellow 02/09/2020 7:00 AM Odor None 03/01/2020 7:00 AM Wound Margin Attached to wound base 03/01/2020 7:00 AM Adherent Yellow Slough % None 03/01/2020 7:00 AM Moist Yellow Slough % None 03/01/2020 7:00 AM Dry Black Eschar % None 03/01/2020 7:00 AM Moist Black Eschar % None 03/01/2020 7:00 AM Epithelialization % 76-100% 03/01/2020 7:00 AM Granulation % None 03/01/2020 7:00 AM Exposed Structure None 03/01/2020 7:00 AM Wound Bed Characteristics Clean;Dry;Intact 03/01/2020 7:00 AM Wound Closure Sutures 12/28/2019 8:15 AM Angeli-wound Assessment Temperature WNL 03/01/2020 7:00 AM Treatments Not Applicable 03/01/2020 7:00 AM Hemostasis Not applicable 03/01/2020 7:00 AM Cleansed Soap and water 03/01/2020 7:00 AM Primary Dressing Collagen;Antibiotic ointment / cream 02/09/2020 8:22 AM Secondary Dressing Gauze pad;Gauze roll 02/09/2020 8:22 AM Compression Dressing Zechariah wrap 02/09/2020 8:22 AM Wound 12/14/19 Pressure Injury Great Toe;Toe Anterior;Right (Active) Wound Image 03/01/2020 7:43 AM Wound Length (cm) 0.3 cm 02/23/2020 7:00 AM Wound Width (cm) 0.5 cm 02/23/2020 7:00 AM Wound Depth (cm) 0 cm 02/23/2020 7:00 AM Wound Surface Area (cm^2) 0.15 cm^2 02/23/2020 7:00 AM Wound Volume (cm^3) 0 cm^3 02/23/2020 7:00 AM Area % Change 275 02/23/2020 7:00 AM Tunneling Maximum Distance (cm) 0 cm 02/09/2020 7:00 AM Tunneling Position (o'clock) 0 02/09/2020 7:00 AM Tunneling Maximum Distance (cm) 0 cm 02/09/2020 7:00 AM Tunneling Position (o'clock) 0 02/09/2020 7:00 AM Undermining Maximum Distance (cm) 1 0 cm 02/09/2020 7:00 AM Undermining Starting Position (o'clock) 1 0 02/09/2020 7:00 AM Undermining Ending Position (o'clock) 1 0 02/09/2020 7:00 AM Undermining Maximum Distance (cm) 2 0 cm 02/09/2020 7:00 AM Undermining Starting Position (o'clock) 2 0 02/09/2020 7:00 AM Undermining Ending Position (o'clock) 2 0 02/09/2020 7:00 AM Wound Progress Improving 02/09/2020 7:00 AM State of Healing Eschar 01/12/2020 7:00 AM Non-staged Wound Description Eschar covered 02/09/2020 7:00 AM Drainage Amount None 02/16/2020 8:15 AM Drainage Description Yellow 02/09/2020 7:00 AM Odor None 02/09/2020 7:00 AM Wound Margin Attached to wound base 02/09/2020 7:00 AM Adherent Yellow Slough % 26-50% 02/16/2020 8:15 AM Moist Yellow Slough % 76-100% 02/09/2020 7:00 AM Dry Black Eschar % None 02/09/2020 7:00 AM Moist Black Eschar % None 02/09/2020 7:00 AM Epithelialization % 76-100% 02/09/2020 7:00 AM Granulation % 26-50%;[place] 02/16/2020 8:15 AM Exposed Structure None 02/09/2020 7:00 AM Wound Bed Characteristics Clean;Dry;Intact 02/09/2020 7:00 AM Angeli-wound Assessment Temperature WNL 02/09/2020 7:00 AM Treatments Not Applicable 02/09/2020 7:00 AM Hemostasis Not applicable 02/09/2020 7:00 AM Cleansed Soap and water 02/16/2020 8:15 AM Primary Dressing Collagen 02/09/2020 7:00 AM Secondary Dressing Gauze roll;Gauze pad 02/09/2020 7:00 AM Compression Dressing Zechariah wrap 02/09/2020 7:00 AM Wound 02/12/20 Acute Diabetic Ulcer Foot Plantar (Active) Wound Image 03/01/2020 7:43 AM Wound Length (cm) 0 cm 03/01/2020 7:00 AM Wound Width (cm) 0 cm 03/01/2020 7:00 AM Wound Depth (cm) 0.1 cm 02/16/2020 8:15 AM Wound Surface Area (cm^2) 0 cm^2 03/01/2020 7:00 AM Wound Volume (cm^3) 0.03 cm^3 02/16/2020 8:15 AM Area % Change -100 03/01/2020 7:00 AM Tunneling Maximum Distance (cm) 0 cm 03/01/2020 7:00 AM Tunneling Position (o'clock) 0 03/01/2020 7:00 AM Tunneling Maximum Distance (cm) 0 cm 03/01/2020 7:00 AM Tunneling Position (o'clock) 0 03/01/2020 7:00 AM Undermining Maximum Distance (cm) 1 0 cm 02/23/2020 7:00 AM Undermining Starting Position (o'clock) 1 0 03/01/2020 7:00 AM Undermining Ending Position (o'clock) 1 0 03/01/2020 7:00 AM Undermining Maximum Distance (cm) 2 0 cm 03/01/2020 7:00 AM Undermining Starting Position (o'clock) 2 0 03/01/2020 7:00 AM Undermining Ending Position (o'clock) 2 0 03/01/2020 7:00 AM Wound Progress Improving 03/01/2020 7:00 AM Non-staged Wound Description Partial thickness 02/23/2020 7:00 AM Drainage Amount None 03/01/2020 7:00 AM Drainage Description Serous 02/23/2020 7:00 AM Odor None 03/01/2020 7:00 AM Adherent Yellow Slough % None 03/01/2020 7:00 AM Moist Yellow Slough % None 03/01/2020 7:00 AM Dry Black Eschar % None 03/01/2020 7:00 AM Moist Black Eschar % None 03/01/2020 7:00 AM Epithelialization % 76-100% 03/01/2020 7:00 AM Granulation % None 03/01/2020 7:00 AM Exposed Structure None 03/01/2020 7:00 AM Wound Bed Characteristics Clean;Dry;Intact 03/01/2020 7:00 AM Angeli-wound Assessment Temperature WNL 03/01/2020 7:00 AM Treatments Not Applicable 03/01/2020 7:00 AM Hemostasis Not applicable 03/01/2020 7:00 AM Cleansed Soap and water 03/01/2020 7:00 AM Primary Dressing Collagen with silver 02/23/2020 7:00 AM Secondary Dressing Gauze pad;Gauze roll 02/23/2020 7:00 AM Compression Dressing Zechariah wrap 02/23/2020 7:00 AM Laboratory and Additional Data Reviewed: Date: 03/01/2020 No new labs/ results as of last note: Update from previous note Current Antibiotic: Doxycycline 100 mg PO daily for 6 weeks - Started 01/03/2020 Previous Antibiotic: Doxycycline 100 mg BID for 6 weeks - Start 01/03/2020 Merrem 1,000 mg IV every 12 Hours until January 02, 2020 ([facility]) Rocephin 2 gm IV every 24 Hours Ancef 2,000 mg IV every 8 Hours Pre/Post Procedure Dressings: Right foot - Kb. Two, 4-inch zechariah wraps. Per Dr. Mora. Current culture: 12/28/2019 - Right foot, aerobic culture: Normal Chalino after 48 hours. Recent Cultures: 12/21/2019 - Right foot, aerobic - normal chalino after 48 hours 12/21/2019 - Right foot, anaerobic: No anaerobic growth at 2 days. 12/10/2019 Right Foot Wound Aerobic Culture: Normal Chalino After 48 Hours. Final 12/10/2019 Right foot wound, anaerobic culture: No anaerobic growth at 2 days. Final 12/08/2019 Urine Aerobic Culture: No Growth (<1,000 CFU/mL). Final. 12/07/2019 Urine Aerobic Culture on arrival to Nursing Rehab Unit: No Growth (<1,000 CFU/mL). Final. 12/02/2019 Right Foot Tissue Aerobic Culture: Normal Chalino After 48 Hours. Final. 12/02/2019 Right Foot Tissue AFB Culture: No Acid Fast Bacilli after 8 weeks. Final. 12/02/2019 Right Foot Tissue Anaerobic Culture: No Anaerobic Growth at 2 Days. Final. 12/02/2019 Right Foot Tissue Fungus Culture: No fungus isolated at 4 weeks. Final. 11/30/2019 Right Foot Wound Aerobic Culture: Normal Chalino After 48 Hours. Final. 11/21/2019 Left Leg Wound Aerobic Culture: Normal Chalino After 48 Hours. Final. 11/20/2019 Right Foot Tissue Aerobic Culture: Moderate Growth Enterobacter cloacae complex, S=Youssef Sensitive. Final. 11/20/2019 Right Foot Tissue Anaerobic Culture: No Anaerobic Growth at 2 Days. Final. 11/20/2019 Right Foot Bone Aerobic Culture: Light Growth Enterobacter Cloacae Complex, S=Youssef Sensitive. Final. 11/20/2019 Right Foot Bone Anaerobic Culture: No Anaerobic Growth at 2 Days. Final Date: 02/23/2020 No new labs/ results as of last note: 02/16/2020 02/16/2020 X-ray Right foot FINDINGS: There is extensive hardware from an external fixator present. This obscures fine bony detail.A single percutaneous pin is seen entering the plantar aspect of the foot through the calcaneus, talus, and entering the distal tibia. A 2nd slightly larger metallic tommy is seen entering the posterior calcaneus extending into the talus. Degenerative changes are present in the midfoot. There is soft tissue edema. IMPRESSION: Study is limited due to overlying external fixator. No significant change in alignment. 02/16/2020 X-ray right tib/fib FINDINGS: There is extensive hardware from an external fixator present. This obscures fine bony detail.A single percutaneous pin is seen entering the plantar aspect of the foot through the calcaneus, talus, and entering the distal tibia. A 2nd slightly larger metallic tommy is seen entering the posterior calcaneus extending into the talus. Degenerative changes are present in the midfoot. There is soft tissue edema. IMPRESSION: Study is limited due to overlying external fixator. No significant change in alignment. Update from previous note Current Antibiotic: Doxycycline 100 mg PO daily for 6 weeks - Started 01/03/2020 Previous Antibiotic: Doxycycline 100 mg BID for 6 weeks - Start 01/03/2020 Merrem 1,000 mg IV every 12 Hours until January 02, 2020 ([facility]) Rocephin 2 gm IV every 24 Hours Ancef 2,000 mg IV every 8 Hours Pre/Post Procedure Dressings: Right foot - Clean pins and wires with alcohol and paint with betadine. Kb to right great toe. Per Dr. Mora. Current culture: 12/28/2019 - Right foot, aerobic culture: Normal Chalino after 48 hours. Recent Cultures: 12/21/2019 - Right foot, aerobic - normal chalino after 48 hours 12/21/2019 - Right foot, anaerobic: No anaerobic growth at 2 days. 12/10/2019 Right Foot Wound Aerobic Culture: Normal C[place]ino After 48 Hours. Final 12/10/2019 Right foot wound, anaerobic culture: No anaerobic growth at 2 days. Final 12/08/2019 Urine Aerobic Culture: No Growth (<1,000 CFU/mL). Final. 12/07/2019 Urine Aerobic Culture on arrival to Nursing Rehab Unit: No Growth (<1,000 CFU/mL). Final. 12/02/2019 Right Foot Tissue Aerobic Culture: Normal Chalino After 48 Hours. Final. 12/02/2019 Right Foot Tissue AFB Culture: No Acid Fast Bacilli after 8 weeks. Final. 12/02/2019 Right Foot Tissue Anaerobic Culture: No Anaerobic Growth at 2 Days. Final. 12/02/2019 Right Foot Tissue Fungus Culture: No fungus isolated at 4 weeks. Final. 11/30/2019 Right Foot Wound Aerobic Culture: Normal Chalino After 48 Hours. Final. 11/21/2019 Left Leg Wound Aerobic Culture: Normal Chalino After 48 Hours. Final. 11/20/2019 Right Foot Tissue Aerobic Culture: Moderate Growth Enterobacter cloacae complex, S=Youssef Sensitive. Final. 11/20/2019 Right Foot Tissue Anaerobic Culture: No Anaerobic Growth at 2 Days. Final. 11/20/2019 Right Foot Bone Aerobic Culture: Light Growth Enterobacter Cloacae Complex, S=Youssef Sensitive. Final. 11/20/2019 Right Foot Bone Anaerobic Culture: No Anaerobic Growth at 2 Days. Final Date: 02/16/2020 New labs/ results as of last note: 02/09/2020 CBC Auto Differential .. Component Ref Range & Units 7d ago (02/09/20) 1mo ago (12/28/19) 2mo ago (12/18/19) 2mo ago (12/12/19) 2mo ago (12/07/19) 2mo ago (12/05/19) 2mo ago (12/02/19) WBC 4.50 - 11.00 K/mcL 6.01 4.66 6.38 4.12Low 6.95 7.98 9.43 RBC 4.50 - 5.90 M/mcL 4.53 4.42Low 4.44Low 4.13Low 4.23Low 4.22Low 4.29Low Hemoglobin 13.5 - 17.5 g/dL 12.1Low 11.6Low 11.7Low 10.8Low 11.3Low 11.4Low 11.5Low Hematocrit 41.0 - 53.0 % 38.2Low 38.0Low 37.8Low 35.6Low 36.8Low 36.3Low 36.7Low MCV 80.0 - 100.0 fL 84.3 86.0 85.1 86.2 87.0 86.0 85.5 MCH 26.0 - 34.0 pg 26.7 26.2 26.4 26.2 26.7 27.0 26.8 MCHC 31.0 - 37.0 g/dL 31.7 30.5Low 31.0 30.3Low 30.7Low 31.4 31.3 Platelets 150 - 400 K/mcL 196 182 323 203 210 228 Comprehensive Metabolic Panel Component Ref Range & Units 7d ago (02/09/20) 1mo ago (12/28/19) 2mo ago (12/18/19) 2mo ago (12/12/19) 2mo ago (12/07/19) 2mo ago (12/05/19) 2mo ago (12/02/19) Sodium 135 - 145 mmol/L 142 142 142 140 138 139 137 Potassium 3.5 - 5.1 mmol/L 4.3 4.3 4.5 4.3 3.9 4.1 4.7 Chloride 98 - 108 mmol/L 109High 109High 106 106 104 104 102 Bicarbonate 21 - 32 mmol/L 28 31 25 30 29 30 30 Anion Gap 10 - 20 mmol/L 9Low 6Low 16 8Low 9Low 9Low 10 Glucose 65 - 99 mg/dL 205High 135High 82 167High 243High 223High 256High BUN 8 - 25 mg/dL 22 18 23 26High 17 19 19 Creatinine 0.50 - 1.30 mg/dL 0.94 0.71 1.04 0.89 0.86 0.86 1.06 eGFR >=60 mL/min/1.73 m2 90 104 79 95 96 96 78 BUN/Creatinine Ratio 10.0 - 20.0 23.4High 25.4High 22.1High 29.2High 19.8 22.1High 17.9 Total Protein 6.0 - 8.0 g/dL 6.9 7.0 7.2 6.7 6.6 6.4 6.7 Albumin 3.2 - 5.2 g/dL 3.5 3.1Low 3.0Low 2.5Low 2.4Low 2.4Low 2.4Low Calcium 8.4 - 10.2 mg/dL 9.2 9.2 9.6 9.7 9.4 9.1 9.2 Alkaline Phosphatase 40 - 150 U/L 72 93 94 83 76 75 82 AST 0 - 45 U/L 14 16 20 35 28 20 32 Total Bilirubin 0.0 - 1.3 mg/dL 0.3 0.4 0.3 0.3 0.4 0.4 0.4 ALT 14 - 65 U/L 19 19 27 52 40 31 53 CRP, Inflammation Component Ref Range & Units 7d ago (02/09/20) 1mo ago (12/28/19) 2mo ago (12/18/19) 2mo ago (12/12/19) 2mo ago (12/05/19) 2mo ago (12/02/19) 2mo ago (11/27/19) CRP(Inflammation) <=10.0 mg/L 5.7 6.4 18.7High 52.4High 85.3High 76.1High 69.0High Sedimentation Rate Component Ref Range & Units 7d ago (02/09/20) 1mo ago (12/28/19) 2mo ago (12/18/19) 2mo ago (12/12/19) 2mo ago (12/05/19) 2mo ago (12/02/19) 2mo ago (11/27/19) Sed Rate 0 - 20 mm/hr 24High 33High 72High 91High 85High 93High 94High Update from previous note Current Antibiotic: Doxycycline 100 mg PO daily for 6 weeks - Started 01/03/2020 Previous Antibiotic: Doxycycline 100 mg BID for 6 weeks - Start 01/03/2020 Merrem 1,000 mg IV every 12 Hours until January 02, 2020 ([facility]) Rocephin 2 gm IV every 24 Hours Ancef 2,000 mg IV every 8 Hours Pre/Post Procedure Dressings: Right foot - Clean pins and wires with alcohol and paint with betadine. Kb to right great toe. Per Dr. Mora. Current culture: 12/28/2019 - Right foot, aerobic culture: Normal Chalino after 48 hours. Recent Cultures: 12/21/2019 - Right foot, aerobic - normal chalino after 48 hours 12/21/2019 - Right foot, anaerobic: No anaerobic growth at 2 days. 12/10/2019 Right Foot Wound Aerobic Culture: Normal Chalino After 48 Hours. Final 12/10/2019 Right foot wound, anaerobic culture: No anaerobic growth at 2 days. Final 12/08/2019 Urine Aerobic Culture: No Growth (<1,000 CFU/mL). Final. 12/07/2019 Urine Aerobic Culture on arrival to Nursing Rehab Unit: No Growth (<1,000 CFU/mL). Final. 12/02/2019 Right Foot Tissue Aerobic Culture: Normal Chalino After 48 Hours. Final. 12/02/2019 Right Foot Tissue AFB Culture: No Acid Fast Bacilli after 8 weeks. Final. 12/02/2019 Right Foot Tissue Anaerobic Culture: No Anaerobic Growth at 2 Days. Final. 12/02/2019 Right Foot Tissue Fungus Culture: No fungus isolated at 4 weeks. Final. 11/30/2019 Right Foot Wound Aerobic Culture: Normal Chalino After 48 Hours. Final. 11/21/2019 Left Leg Wound Aerobic Culture: Normal Chalino After 48 Hours. Final. 11/20/2019 Right Foot Tissue Aerobic Culture: Moderate Growth Enterobacter cloacae complex, S=Youssef Sensitive. Final. 11/20/2019 Right Foot Tissue Anaerobic Culture: No Anaerobic Growth at 2 Days. Final. 11/20/2019 Right Foot Bone Aerobic Culture: Light Growth Enterobacter Cloacae Complex, S=Youssef Sensitive. Final. 11/20/2019 Right Foot Bone Anaerobic Culture: No Anaerobic Growth at 2 Days. Final Date: 02/09/2020 No new labs/ results as of last note: 01/26/2020 Update from previous note Current Antibiotic: Doxycycline 100 mg PO daily for 6 weeks - Started 01/03/2020 Previous Antibiotic: Doxycycline 100 mg BID for 6 weeks - Start 01/03/2020 Merrem 1,000 mg IV every 12 Hours until January 02, 2020 ([facility]) Rocephin 2 gm IV every 24 Hours Ancef 2,000 mg IV every 8 Hours Pre/Post Procedure Dressings: Right foot - Clean pins and wires with alcohol and paint with betadine. Kb to right great toe. Per Dr. Mora. Current culture: 12/28/2019 - Right foot, aerobic culture: Normal Chalino after 48 hours. Recent Cultures: 12/21/2019 - Right foot, aerobic - normal chalino after 48 hours 12/21/2019 - Right foot, anaerobic: No anaerobic growth at 2 days. 12/10/2019 Right Foot Wound Aerobic Culture: Normal Chalino After 48 Hours. Final 12/10/2019 Right foot wound, anaerobic culture: No anaerobic growth at 2 days. Final 12/08/2019 Urine Aerobic Culture: No Growth (<1,000 CFU/mL). Final. 12/07/2019 Urine Aerobic Culture on arrival to Nursing Rehab Unit: No Growth (<1,000 CFU/mL). Final. 12/02/2019 Right Foot Tissue Aerobic Culture: Normal Chalino After 48 Hours. Final. 12/02/2019 Right Foot Tissue AFB Culture: No Acid Fast Bacilli after 8 weeks. Final. 12/02/2019 Right Foot Tissue Anaerobic Culture: No Anaerobic Growth at 2 Days. Final. 12/02/2019 Right Foot Tissue Fungus Culture: No fungus isolated at 4 weeks. Final. 12/01/2019 Blood Culture #1: No Growth After 5 Days. Final. 12/01/2019 Blood Culture #2: No Growth After 5 Days. Final. 11/30/2019 Right Foot Wound Aerobic Culture: Normal Chalino After 48 Hours. Final. 11/21/2019 Left Leg Wound Aerobic Culture: Normal Chalino After 48 Hours. Final. 11/20/2019 Right Foot Tissue Aerobic Culture: Moderate Growth Enterobacter cloacae complex, S=Youssef Sensitive. Final. 11/20/2019 Right Foot Tissue Anaerobic Culture: No Anaerobic Growth at 2 Days. Final. 11/20/2019 Right Foot Bone Aerobic Culture: Light Growth Enterobacter Cloacae Complex, S=Youssef Sensitive. Final. 11/20/2019 Right Foot Bone Anaerobic Culture: No Anaerobic Growth at 2 Days. Final Date: 01/26/2020 No new labs/ results as of last note: 01/19/2020 Update from previous note Current Antibiotic: Doxycycline 100 mg PO daily for 6 weeks - Started 01/03/2020 Previous Antibiotic: Doxycycline 100 mg BID for 6 weeks - Start 01/03/2020 Merrem 1,000 mg IV every 12 Hours until January 02, 2020 ([facility]) Rocephin 2 gm IV every 24 Hours Ancef 2,000 mg IV every 8 Hours Pre/Post Procedure Dressings: Right foot - Clean pins and wires with alcohol and paint with betadine. Kb to right great toe an plantar foot. Per Dr. Mora. Current culture: 12/28/2019 - Right foot, aerobic culture: Normal [place] after 48 hours. Recent Cultures: 12/21/2019 - Right foot, aerobic - normal [place] after 48 hours 12/21/2019 - Right foot, anaerobic: No anaerobic growth at 2 days. 12/10/2019 Right Foot Wound Aerobic Culture: Normal [place] After 48 Hours. Final 12/10/2019 Right foot wound, anaerobic culture: No anaerobic growth at 2 days. Final 12/08/2019 Urine Aerobic Culture: No Growth (<1,000 CFU/mL). Final. 12/07/2019 Urine Aerobic Culture on arrival to Nursing Rehab Unit: No Growth (<1,000 CFU/mL). Final. 12/02/2019 Right Foot Tissue Aerobic Culture: Normal [place] After 48 Hours. Final. 12/02/2019 Right Foot Tissue AFB Culture: No Acid Fast Bacilli Seen. Preliminary. 12/02/2019 Right Foot Tissue Anaerobic Culture: No Anaerobic Growth at 2 Days. Final. 12/02/2019 Right Foot Tissue Fungus Culture: No fungus isolated at 4 weeks. Final. 12/01/2019 Blood Culture #1: No Growth After 5 Days. Final. 12/01/2019 Blood Culture #2: No Growth After 5 Days. Final. 11/30/2019 Right Foot Wound Aerobic Culture: Normal [place] After 48 Hours. Final. 11/21/2019 Left Leg Wound Aerobic Culture: Normal [place] After 48 Hours. Final. 11/20/2019 Right Foot Tissue Aerobic Culture: Moderate Growth Enterobacter cloacae complex, S=Youssef Sensitive. Final. 11/20/2019 Right Foot Tissue Anaerobic Culture: No Anaerobic Growth at 2 Days. Final. 11/20/2019 Right Foot Bone Aerobic Culture: Light Growth Enterobacter Cloacae Complex, S=Youssef Sensitive. Final. 11/20/2019 Right Foot Bone Anaerobic Culture: No Anaerobic Growth at 2 Days. Final January 19, 2020 12/28/2019 sed rate 33 CRP 6.4 WBC 4.6 culture on 12/28/2019 Gram stain negative culture normal [place] Date: 01/12/2020 New labs/ results as of last note: 12/28/2019 CBC Auto Differential Order: [id number] - Part of Panel Order [id number] Status: Final result Visible to patient: No (Not Released) Next appt: 01/12/2020 at 07:45 AM in Wound Care (Alena Mora DPM) Dx: Acute osteomyelitis (HCC); Elevated C... Component Ref Range & Units 12d ago (12/28/19) 3wk ago (12/18/19) 4wk ago (12/12/19) 1mo ago (12/07/19) 1mo ago (12/05/19) 1mo ago (12/02/19) 1mo ago (12/01/19) WBC 4.50 - 11.00 K/mcL 4.66 6.38 4.12Low 6.95 7.98 9.43 8.56 RBC 4.50 - 5.90 M/mcL 4.42Low 4.44Low 4.13Low 4.23Low 4.22Low 4.29Low 4.09Low Hemoglobin 13.5 - 17.5 g/dL 11.6Low 11.7Low 10.8Low 11.3Low 11.4Low 11.5Low 11.2Low Hematocrit 41.0 - 53.0 % 38.0Low 37.8Low 35.6Low 36.8Low 36.3Low 36.7Low 35.6Low MCV 80.0 - 100.0 fL 86.0 85.1 86.2 87.0 86.0 85.5 87.0 MCH 26.0 - 34.0 pg 26.2 26.4 26.2 26.7 27.0 26.8 27.4 MCHC 31.0 - 37.0 g/dL 30.5Low 31.0 30.3Low 30.7Low 31.4 31.3 31.5 Platelets 150 - 400 K/mcL 182 323 203 210 228 235 232 Comprehensive Metabolic Panel Order: [id number] Status: Final result Visible to patient: No (Not Released) Next appt: 01/12/2020 at 07:45 AM in Wound Care (Alena Mora DPM) Dx: Acute osteomyelitis (HCC); Elevated C... Component Ref Range & Units 12d ago (12/28/19) 3wk ago (12/18/19) 4wk ago (12/12/19) 1mo ago (12/07/19) 1mo ago (12/05/19) 1mo ago (12/02/19) 1mo ago (12/01/19) Sodium 135 - 145 mmol/L 142 142 140 138 139 137 140 Potassium 3.5 - 5.1 mmol/L 4.3 4.5 4.3 3.9 4.1 4.7 5.0 Chloride 98 - 108 mmol/L 109High 106 106 104 104 102 106 Bicarbonate 21 - 32 mmol/L 31 25 30 29 30 30 30 Anion Gap 10 - 20 mmol/L 6Low 16 8Low 9Low 9Low 10 9Low Glucose 65 - 99 mg/dL 135High 82 167High 243High 223High 256High 223High BUN 8 - 25 mg/dL 18 23 26High 17 19 19 22 Creatinine 0.50 - 1.30 mg/dL 0.71 1.04 0.89 0.86 0.86 1.06 0.98 eGFR >=60 mL/min/1.73 m2 104 79 95 96 96 78 85 BUN/Creatinine Ratio 10.0 - 20.0 25.4High 22.1High 29.2High 19.8 22.1High 17.9 22.4High Total Protein 6.0 - 8.0 g/dL 7.0 7.2 6.7 6.6 6.4 6.7 Albumin 3.2 - 5.2 g/dL 3.1Low 3.0Low 2.5Low 2.4Low 2.4Low 2.4Low Calcium 8.4 - 10.2 mg/dL 9.2 9.6 9.7 9.4 9.1 9.2 9.1 Alkaline Phosphatase 40 - 150 U/L 93 94 83 76 75 82 AST 0 - 45 U/L 16 20 35 28 20 32 Total Bilirubin 0.0 - 1.3 mg/dL 0.4 0.3 0.3 0.4 0.4 0.4 ALT 14 - 65 U/L 19 27 52 40 31 53 Resulting Agency Lab Lab Lab Lab Lab Lab Lab CRP, Inflammation Order: [id number] Status: Final result Visible to patient: No (Not Released) Next appt: 01/12/2020 at 07:45 AM in Wound Care (Alena Mora DPM) Dx: Acute osteomyelitis (HCC); Elevated C... Component Ref Range & Units 12d ago (12/28/19) 3wk ago (12/18/19) 4wk ago (12/12/19) 1mo ago (12/05/19) 1mo ago (12/02/19) 1mo ago (11/27/19) CRP(Inflammation) <=10.0 mg/L 6.4 18.7High 52.4High 85.3High 76.1High 69.0High Sedimentation Rate Order: [id number] Status: Final result Visible to patient: No (Not Released) Next appt: 01/12/2020 at 07:45 AM in Wound Care (Alena Mora DPM) Dx: Acute osteomyelitis (HCC); Elevated C... Component Ref Range & Units 12d ago (12/28/19) 3wk ago (12/18/19) 4wk ago (12/12/19) 1mo ago (12/05/19) 1mo ago (12/02/19) 1mo ago (11/27/19) Sed Rate 0 - 20 mm/hr 33High 72High 91High 85High 93High 94High Update from previous note Current Antibiotic: Doxycycline 100 mg PO BID for 6 weeks - Start 01/03/2020 Previous Antibiotic: Merrem 1,000 mg IV every 12 Hours until January 02, 2020 ([facility]) Rocephin 2 gm IV every 24 Hours Ancef 2,000 mg IV every 8 Hours Pre/Post Procedure Dressings: Per Dr. Mora Current culture: 12/28/2019 - Right foot, aerobic culture: Normal [place] after 48 hours. Recent Cultures: 12/21/2019 - Right foot, aerobic - normal [place] after 48 hours 12/21/2019 - Right foot, anaerobic: No anaerobic growth at 2 days. 12/10/2019 Right Foot Wound Aerobic Culture: Normal [place] After 48 Hours. Final 12/10/2019 Right foot wound, anaerobic culture: No anaerobic growth at 2 days. Final 12/08/2019 Urine Aerobic Culture: No Growth (<1,000 CFU/mL). Final. 12/07/2019 Urine Aerobic Culture on arrival to Nursing Rehab Unit: No Growth (<1,000 CFU/mL). Final. 12/02/2019 Right Foot Tissue Aerobic Culture: Normal [place] After 48 Hours. Final. 12/02/2019 Right Foot Tissue AFB Culture: No Acid Fast Bacilli Seen. Preliminary. 12/02/2019 Right Foot Tissue Anaerobic Culture: No Anaerobic Growth at 2 Days. Final. 12/02/2019 Right Foot Tissue Fungus Culture: No fungus isolated at 4 weeks. Final. 12/01/2019 Blood Culture #1: No Growth After 5 Days. Final. 12/01/2019 Blood Culture #2: No Growth After 5 Days. Final. 11/30/2019 Right Foot Wound Aerobic Culture: Normal [place] After 48 Hours. Final. 11/21/2019 Left Leg Wound Aerobic Culture: Normal [place] After 48 Hours. Final. 11/20/2019 Right Foot Tissue Aerobic Culture: Moderate Growth Enterobacter cloacae complex, S=Youssef Sensitive. Final. 11/20/2019 Right Foot Tissue Anaerobic Culture: No Anaerobic Growth at 2 Days. Final. 11/20/2019 Right Foot Bone Aerobic Culture: Light Growth Enterobacter Cloacae Complex, S=Youssef Sensitive. Final. 11/20/2019 Right Foot Bone Anaerobic Culture: No Anaerobic Growth at 2 Days. Final Date: 12/28/2019 New labs/ results as of last note: 12/21/2019 Labs unable to be drawn by Home Health nurse 12/25/2019 I have personally reviewed all labs and other results Labs: Current Culture: 12/21/2019 - Right foot, aerobic - normal [place] after 48 hours 12/21/2019 - Right foot, anaerobic: No anaerobic growth at 2 days. Update from previous note Current Antibiotics: Merrem 1,000 mg IV every 12 Hours until January 02, 2020 ([facility]) Previous Antibiotic: Rocephin 2 gm IV every 24 Hours Ancef 2,000 mg IV every 8 Hours Pre/Post Procedure Dressings: Per Dr. Mora Recent Cultures: 12/10/2019 Right Foot Wound Aerobic Culture: Normal [place] After 48 Hours. Final 12/10/2019 Right foot wound, anaerobic culture: No anaerobic growth at 2 days. Final 12/08/2019 Urine Aerobic Culture: No Growth (<1,000 CFU/mL). Final. 12/07/2019 Urine Aerobic Culture on arrival to Nursing Rehab Unit: No Growth (<1,000 CFU/mL). Final. 12/02/2019 Right Foot Tissue Aerobic Culture: Normal [place] After 48 Hours. Final. 12/02/2019 Right Foot Tissue AFB Culture: No Acid Fast Bacilli Seen. Preliminary. 12/02/2019 Right Foot Tissue Anaerobic Culture: No Anaerobic Growth at 2 Days. Final. 12/02/2019 Right Foot Tissue Fungus Culture: Fungal Culture in Progress. Preliminary. 12/01/2019 Blood Culture #1: No Growth After 5 Days. Final. 12/01/2019 Blood Culture #2: No Growth After 5 Days. Final. 11/30/2019 Right Foot Wound Aerobic Culture: Normal [place] After 48 Hours. Final. 11/21/2019 Left Leg Wound Aerobic Culture: Normal [place] After 48 Hours. Final. 11/20/2019 Right Foot Tissue Aerobic Culture: Moderate Growth Enterobacter cloacae complex, S=Youssef Sensitive. Final. 11/20/2019 Right Foot Tissue Anaerobic Culture: No Anaerobic Growth at 2 Days. Final. 11/20/2019 Right Foot Bone Aerobic Culture: Light Growth Enterobacter Cloacae Complex, S=Youssef Sensitive. Final. 11/20/2019 Right Foot Bone Anaerobic Culture: No Anaerobic Growth at 2 Days. Final Date: 12/21/2019 No new labs/ results as of last note: 12/18/2019 Update from previous note Current Antibiotics: Merrem 1,000 mg IV every 12 Hours until January 02, 2020 ([facility]) Previous Antibiotic: Rocephin 2 gm IV every 24 Hours Ancef 2,000 mg IV every 8 Hours Pre/Post Procedure Dressings: Per Dr. Mora Current Cultures: 12/10/2019 Right Foot Wound Aerobic Culture: Normal [place] After 48 Hours. Final 12/10/2019 Right foot wound, anaerobic culture: No anaerobic growth at 2 days. Final 12/08/2019 Urine Aerobic Culture: No Growth (<1,000 CFU/mL). Final. 12/07/2019 Urine Aerobic Culture on arrival to Nursing Rehab Unit: No Growth (<1,000 CFU/mL). Final. 12/02/2019 Right Foot Tissue Aerobic Culture: Normal [place] After 48 Hours. Final. 12/02/2019 Right Foot Tissue AFB Culture: No Acid Fast Bacilli Seen. Preliminary. 12/02/2019 Right Foot Tissue Anaerobic Culture: No Anaerobic Growth at 2 Days. Final. 12/02/2019 Right Foot Tissue Fungus Culture: Fungal Culture in Progress. Preliminary. 12/01/2019 Blood Culture #1: No Growth After 5 Days. Final. 12/01/2019 Blood Culture #2: No Growth After 5 Days. Final. 11/30/2019 Right Foot Wound Aerobic Culture: Normal [place] After 48 Hours. Final. 11/21/2019 Left Leg Wound Aerobic Culture: Normal [place] After 48 Hours. Final. 11/20/2019 Right Foot Tissue Aerobic Culture: Moderate Growth Enterobacter cloacae complex, S=Youssef Sensitive. Final. 11/20/2019 Right Foot Tissue Anaerobic Culture: No Anaerobic Growth at 2 Days. Final. 11/20/2019 Right Foot Bone Aerobic Culture: Light Growth Enterobacter Cloacae Complex, S=Youssef Sensitive. Final. 11/20/2019 Right Foot Bone Anaerobic Culture: No Anaerobic Growth at 2 Days. Final Date: 12/19/2019 No new labs/results as of last note Update from previous note Tmax: 98.5 Urine Output: 2400 Stool: X1 Current Antibiotics: Merrem 1,000 mg IV every 12 Hours until January 02, 2020 Previous Antibiotic: Rocephin 2 gm IV every 24 Hours Ancef 2,000 mg IV every 8 Hours Pre/Post Procedure Dressings: Per Dr. Mora I have personally reviewed the labs and results Test results Laboratory and Additional Data Reviewed: Labs to de drawn every Wednesday (CBC, CMP, Sed Rate, CRP) Current Cultures: 12/10/2019 Right Foot Wound Aerobic Culture: Normal [place] After 48 Hours. Final 12/10/2019 Right foot wound, anaerobic culture: No anaerobic growth at 2 days. Final 12/08/2019 Urine Aerobic Culture: No Growth (<1,000 CFU/mL). Final. 12/07/2019 Urine Aerobic Culture on arrival to Nursing Rehab Unit: No Growth (<1,000 CFU/mL). Final. 12/02/2019 Right Foot Tissue Aerobic Culture: Normal [place] After 48 Hours. Final. 12/02/2019 Right Foot Tissue AFB Culture: No Acid Fast Bacilli Seen. Preliminary. 12/02/2019 Right Foot Tissue Anaerobic Culture: No Anaerobic Growth at 2 Days. Final. 12/02/2019 Right Foot Tissue Fungus Culture: Fungal Culture in Progress. Preliminary. 12/01/2019 Blood Culture #1: No Growth After 5 Days. Final. 12/01/2019 Blood Culture #2: No Growth After 5 Days. Final. 11/30/2019 Right Foot Wound Aerobic Culture: Normal [place] After 48 Hours. Final. 11/21/2019 Left Leg Wound Aerobic Culture: Normal [place] After 48 Hours. Final. 11/20/2019 Right Foot Tissue Aerobic Culture: Moderate Growth Enterobacter cloacae complex, S=Youssef Sensitive. Final. 11/20/2019 Right Foot Tissue Anaerobic Culture: No Anaerobic Growth at 2 Days. Final. 11/20/2019 Right Foot Bone Aerobic Culture: Light Growth Enterobacter Cloacae Complex, S=Youssef Sensitive. Final. 11/20/2019 Right Foot Bone Anaerobic Culture: No Anaerobic Growth at 2 Days. Final Date: 12/18/2019 No new labs/results as of last note Update from previous note Tmax: 98.1 Urine Output: 3950 Stool: not recorded Current Antibiotics: Merrem 1,000 mg IV every 12 Hours Previous Antibiotic: Rocephin 2 gm IV every 24 Hours Ancef 2,000 mg IV every 8 Hours Pre/Post Procedure I have personally reviewed the labs and results Test results Laboratory and Additional Data Reviewed: Current Cultures: 12/10/2019 Right Foot Wound Aerobic Culture: Normal [place] After 48 Hours. Final 12/10/2019 Right foot wound, anaerobic culture: No anaerobic growth at 2 days. Final 12/08/2019 Urine Aerobic Culture: No Growth (<1,000 CFU/mL). Final. 12/07/2019 Urine Aerobic Culture on arrival to Nursing Rehab Unit: No Growth (<1,000 CFU/mL). Final. 12/02/2019 Right Foot Tissue Aerobic Culture: Normal [place] After 48 Hours. Final. 12/02/2019 Right Foot Tissue AFB Culture: No Acid Fast Bacilli Seen. Preliminary. 12/02/2019 Right Foot Tissue Anaerobic Culture: No Anaerobic Growth at 2 Days. Final. 12/02/2019 Right Foot Tissue Fungus Culture: Fungal Culture in Progress. Preliminary. 12/01/2019 Blood Culture #1: No Growth After 5 Days. Final. 12/01/2019 Blood Culture #2: No Growth After 5 Days. Final. 11/30/2019 Right Foot Wound Aerobic Culture: Normal [place] After 48 Hours. Final. 11/21/2019 Left Leg Wound Aerobic Culture: Normal [place] After 48 Hours. Final. 11/20/2019 Right Foot Tissue Aerobic Culture: Moderate Growth Enterobacter cloacae complex, S=Youssef Sensitive. Final. 11/20/2019 Right Foot Tissue Anaerobic Culture: No Anaerobic Growth at 2 Days. Final. 11/20/2019 Right Foot Bone Aerobic Culture: Light Growth Enterobacter Cloacae Complex, S=Youssef Sensitive. Final. 11/20/2019 Right Foot Bone Anaerobic Culture: No Anaerobic Growth at 2 Days. Final Date: 12/15/2019 New labs/results as of last note Update from previous note Tmax: 98.7 Urine Output: 1900 Stool: not recorded Current Antibiotics: Merrem 1,000 mg IV every 12 Hours Previous Antibiotic: Rocephin 2 gm IV every 24 Hours Ancef 2,000 mg IV every 8 Hours Pre/Post Procedure I have personally reviewed the labs and results Test results Laboratory and Additional Data Reviewed: Current Cultures: 12/10/2019 Right Foot Wound Aerobic Culture: Normal [place] After 48 Hours. Final 12/10/2019 Right foot wound, anaerobic culture: No anaerobic growth at 2 days. Final 12/08/2019 Urine Aerobic Culture: No Growth (<1,000 CFU/mL). Final. 12/07/2019 Urine Aerobic Culture on arrival to Nursing Rehab Unit: No Growth (<1,000 CFU/mL). Final. 12/02/2019 Right Foot Tissue Aerobic Culture: Normal [place] After 48 Hours. Final. 12/02/2019 Right Foot Tissue AFB Culture: No Acid Fast Bacilli Seen. Preliminary. 12/02/2019 Right Foot Tissue Anaerobic Culture: No Anaerobic Growth at 2 Days. Final. 12/02/2019 Right Foot Tissue Fungus Culture: Fungal Culture in Progress. Preliminary. 12/01/2019 Blood Culture #1: No Growth After 5 Days. Final. 12/01/2019 Blood Culture #2: No Growth After 5 Days. Final. 11/30/2019 Right Foot Wound Aerobic Culture: Normal [place] After 48 Hours. Final. 11/21/2019 Left Leg Wound Aerobic Culture: Normal [place] After 48 Hours. Final. 11/20/2019 Right Foot Tissue Aerobic Culture: Moderate Growth Enterobacter cloacae complex, S=Youssef Sensitive. Final. 11/20/2019 Right Foot Tissue Anaerobic Culture: No Anaerobic Growth at 2 Days. Final. 11/20/2019 Right Foot Bone Aerobic Culture: Light Growth Enterobacter Cloacae Complex, S=Youssef Sensitive. Final. 11/20/2019 Right Foot Bone Anaerobic Culture: No Anaerobic Growth at 2 Days. Final Date: 12/14/2019 New labs/ results as of last note: 12/12/2019 T-Max: 98.6 Output: Urine 2150 ml Stool not recorded Current Antibiotics: Merrem 1,000 mg IV every 12 Hours Previous Antibiotic: Rocephin 2 gm IV every 24 Hours Ancef 2,000 mg IV every 8 Hours Pre/Post Procedure I have personally reviewed the labs and results Test results Laboratory and Additional Data Reviewed: Current Cultures: 12/10/2019 Right Foot Wound Aerobic Culture: Normal [place] After 48 Hours. Final 12/10/2019 Right foot wound, anaerobic culture: No anaerobic growth at 2 days. Final 12/08/2019 Urine Aerobic Culture: No Growth (<1,000 CFU/mL). Final. 12/07/2019 Urine Aerobic Culture on arrival to Nursing Rehab Unit: No Growth (<1,000 CFU/mL). Final. 12/02/2019 Right Foot Tissue Aerobic Culture: Normal [place] After 48 Hours. Final. 12/02/2019 Right Foot Tissue AFB Culture: No Acid Fast Bacilli Seen. Preliminary. 12/02/2019 Right Foot Tissue Anaerobic Culture: No Anaerobic Growth at 2 Days. Final. 12/02/2019 Right Foot Tissue Fungus Culture: Fungal Culture in Progress. Preliminary. 12/01/2019 Blood Culture #1: No Growth After 5 Days. Final. 12/01/2019 Blood Culture #2: No Growth After 5 Days. Final. 11/30/2019 Right Foot Wound Aerobic Culture: Normal [place] After 48 Hours. Final. 11/21/2019 Left Leg Wound Aerobic Culture: Normal [place] After 48 Hours. Final. 11/20/2019 Right Foot Tissue Aerobic Culture: Moderate Growth Enterobacter cloacae complex, S=Youssef Sensitive. Final. 11/20/2019 Right Foot Tissue Anaerobic Culture: No Anaerobic Growth at 2 Days. Final. 11/20/2019 Right Foot Bone Aerobic Culture: Light Growth Enterobacter Cloacae Complex, S=Youssef Sensitive. Final. 11/20/2019 Right Foot Bone Anaerobic Culture: No Anaerobic Growth at 2 Days. Final Update from previous note Date: 12/12/2019 New labs/results as of last note Update from previous note Tmax: 99.2 Urine Output: 1600 Stool: not recorded Current Antibiotics: Merrem 1,000 mg IV every 12 Hours Previous Antibiotic: Rocephin 2 gm IV every 24 Hours Ancef 2,000 mg IV every 8 Hours Pre/Post Procedure I have personally reviewed the labs and results Test results Laboratory and Additional Data Reviewed: Labs: CMP 12/12/2019 06:11 Glucose: 167 BUN: 26 Creatinine: 0.89 Sodium: 140 Potassium: 4.3 Total Protein: 6.7 Albumin: 2.5 Alk Phos: 83 AST: 35 ALT: 52 Total Bilirubin: 0.3 CBC 12/12/2019 06:11 WBC: 4.12 RBC: 4.13 Hgb: 10.8 Hct: 35.6 Platelets: 203 Lymphocytes Abs: 0.66 CRP 12/12/2019 06:11 52.4 Current Cultures: 12/10/2019 Right Foot Wound Aerobic Culture: Normal [place] After 24 Hours. Preliminary. 12/08/2019 Urine Aerobic Culture: No Growth (<1,000 CFU/mL). Final. 12/07/2019 Urine Aerobic Culture on arrival to Nursing Rehab Unit: No Growth (<1,000 CFU/mL). Final. 12/02/2019 Right Foot Tissue Aerobic Culture: Normal [place] After 48 Hours. Final. 12/02/2019 Right Foot Tissue AFB Culture: No Acid Fast Bacilli Seen. Preliminary. 12/02/2019 Right Foot Tissue Anaerobic Culture: No Anaerobic Growth at 2 Days. Final. 12/02/2019 Right Foot Tissue Fungus Culture: Fungal Culture in Progress. Preliminary. 12/01/2019 Blood Culture #1: No Growth After 5 Days. Final. 12/01/2019 Blood Culture #2: No Growth After 5 Days. Final. 11/30/2019 Right Foot Wound Aerobic Culture: Normal [place] After 48 Hours. Final. 11/21/2019 Left Leg Wound Aerobic Culture: Normal [place] After 48 Hours. Final. 11/20/2019 Right Foot Tissue Aerobic Culture: Moderate Growth Enterobacter cloacae complex, S=Youssef Sensitive. Final. 11/20/2019 Right Foot Tissue Anaerobic Culture: No Anaerobic Growth at 2 Days. Final. 11/20/2019 Right Foot Bone Aerobic Culture: Light Growth Enterobacter Cloacae Complex, S=Youssef Sensitive. Final. 11/20/2019 Right Foot Bone Anaerobic Culture: No Anaerobic Growth at 2 Days. Final. Date: 12/11/2019 New labs/results as of last note Update from previous note Tmax: 98.7 Urine Output: 2500 Stool: X1 Current Antibiotics: Rocephin 2 gm IV every 24 Hours until 01/02/2020 Previous Antibiotic: Ancef 2,000 mg IV every 8 Hours Pre/Post Procedure I have personally reviewed the labs and results Test results Laboratory and Additional Data Reviewed: U/A 12/08/2019 Glucose: 150 Blood: Small WBC: 7 Bacteria: Rare Labs: Vitamin D, Total 12/07/2019 04:55 16 B12/Folate 12/07/2019 04:55 B12: 828 Folate: >20.0 Ferritin 12/07/2019 04:55 211 Iron 12/07/2019 04:55 30 CMP 12/07/2019 04:55 Glucose: 243 BUN: 17 Creatinine: 0.86 Sodium: 138 Potassium: 3.9 Total Protein: 6.6 Albumin: 2.4 Alk Phos: 76 AST: 28 ALT: 40 Total Bilirubin: 0.4 CBC 12/07/2019 04:54 WBC: 6.95 Hgb: 11.3 Hct: 36.8 Platelets: 210 Lymphocytes Abs: 0.64 CRP 12/05/2019 07:58 85.3 U/A 12/07/2019 Protein: 30 Glucose: >=500 Blood: Small Leukocyte Esterase: Trace Renal Epithelial: <1 Current Cultures: 12/10/2019 Right Foot Wound Aerobic Culture: Rare WBC. Rare Epithelial Cells. No Organisms Seen. Preliminary. 12/08/2019 Urine Aerobic Culture: No Growth (<1,000 CFU/mL). Final. 12/07/2019 Urine Aerobic Culture on arrival to Nursing Rehab Unit: No Growth (<1,000 CFU/mL). Final. 12/02/2019 Right Foot Tissue Aerobic Culture: Normal [place] After 48 Hours. Final. 12/02/2019 Right Foot Tissue AFB Culture: No Acid Fast Bacilli Seen. Preliminary. 12/02/2019 Right Foot Tissue Anaerobic Culture: No Anaerobic Growth at 2 Days. Final. 12/02/2019 Right Foot Tissue Fungus Culture: Fungal Culture in Progress. Preliminary. 12/01/2019 Blood Culture #1: No Growth After 5 Days. Final. 12/01/2019 Blood Culture #2: No Growth After 5 Days. Final. 11/30/2019 Right Foot Wound Aerobic Culture: Normal [place] After 48 Hours. Final. 11/21/2019 Left Leg Wound Aerobic Culture: Normal [place] After 48 Hours. Final. 11/20/2019 Right Foot Tissue Aerobic Culture: Moderate Growth Enterobacter cloacae complex, S=Youssef Sensitive. Final. 11/20/2019 Right Foot Tissue Anaerobic Culture: No Anaerobic Growth at 2 Days. Final. 11/20/2019 Right Foot Bone Aerobic Culture: Light Growth Enterobacter Cloacae Complex, S=Youssef Sensitive. Final. 11/20/2019 Right Foot Bone Anaerobic Culture: No Anaerobic Growth at 2 Days. Final. Date: 12/08/2019 New labs/results as of last note Update from previous note Tmax: 99.2 Urine Output: 4950 Stool: not recorded Current Antibiotics: Rocephin 2 gm IV every 24 Hours until 01/02/2020 Previous Antibiotic: Ancef 2,000 mg IV every 8 Hours Pre/Post Procedure I have personally reviewed the labs and results Test results Laboratory and Additional Data Reviewed: U/A 12/08/2019 Glucose: 150 Blood: Small WBC: 7 Bacteria: Rare Labs: Vitamin D, Total 12/07/2019 04:55 16 B12/Folate 12/07/2019 04:55 B12: 828 Folate: >20.0 Ferritin 12/07/2019 04:55 211 Iron 12/07/2019 04:55 30 CMP 12/07/2019 04:55 Glucose: 243 BUN: 17 Creatinine: 0.86 Sodium: 138 Potassium: 3.9 Total Protein: 6.6 Albumin: 2.4 Alk Phos: 76 AST: 28 ALT: 40 Total Bilirubin: 0.4 CBC 12/07/2019 04:54 WBC: 6.95 Hgb: 11.3 Hct: 36.8 Platelets: 210 Lymphocytes Abs: 0.64 CRP 12/05/2019 07:58 85.3 U/A 12/07/2019 Protein: 30 Glucose: >=500 Blood: Small Leukocyte Esterase: Trace Renal Epithelial: <1 Current Cultures: 12/07/2019 Urine Aerobic Culture on arrival to Nursing Rehab Unit: No Growth, Incubation Continued.Preliminary. 12/02/2019 Right Foot Tissue Aerobic Culture: Normal Chalino After 48 Hours. Final. 12/02/2019 Right Foot Tissue AFB Culture: No Acid Fast Bacilli Seen. Preliminary. 12/02/2019 Right Foot Tissue Anaerobic Culture: No Anaerobic Growth at 2 Days. Final. 12/02/2019 Right Foot Tissue Fungus Culture: Fungal Culture in Progress. Preliminary. 12/01/2019 Blood Culture #1: No Growth After 5 Days. Final. 12/01/2019 Blood Culture #2: No Growth After 5 Days. Final. 11/30/2019 Right Foot Wound Aerobic Culture: Normal Chalino After 48 Hours. Final. 11/21/2019 Left Leg Wound Aerobic Culture: Normal Chalino After 48 Hours. Final. 11/20/2019 Right Foot Tissue Aerobic Culture: Moderate Growth Enterobacter cloacae complex, S=Youssef Sensitive. Final. 11/20/2019 Right Foot Tissue Anaerobic Culture: No Anaerobic Growth at 2 Days. Final. 11/20/2019 Right Foot Bone Aerobic Culture: Light Growth Enterobacter Cloacae Complex, S=Youssef Sensitive. Final. 11/20/2019 Right Foot Bone Anaerobic Culture: No Anaerobic Growth at 2 Days. Final. Radiology: Left Ankle X-Ray 12/07/2019 1. A new screw internally fixes the base of the 5th metatarsal to near anatomic alignment, however this screw is broken/fractured. 2. 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 Lateral subluxation of the 2nd through 5th metatarsal bases is again noted, as well as pes planus deformity. 3. Milder arthritis is noted in the tibiotalar joint and subtalar joint. 4. Large calcaneal enthesophytes are noted at the insertion sites of the plantar fascia and Achilles tendon. 5. No acute fracture, or other acute bony abnormality is seen. Date: 12/07/2019 New labs/results as of last note Update from previous note Tmax: 99.1 Urine Output: 1800 Stool: not recorded Current Antibiotics: Rocephin 2 gm IV every 24 Hours until 01/02/2020 Previous Antibiotic: Ancef 2,000 mg IV every 8 Hours Pre/Post Procedure I have personally reviewed the labs and results Test results Laboratory and Additional Data Reviewed: Labs: Vitamin D, Total 12/07/2019 04:55 16 B12/Folate 12/07/2019 04:55 B12: 828 Folate: >20.0 Ferritin 12/07/2019 04:55 211 Iron 12/07/2019 04:55 30 CMP 12/07/2019 04:55 Glucose: 243 BUN: 17 Creatinine: 0.86 Sodium: 138 Potassium: 3.9 Total Protein: 6.6 Albumin: 2.4 Alk Phos: 76 AST: 28 ALT: 40 Total Bilirubin: 0.4 CBC 12/07/2019 04:54 WBC: 6.95 Hgb: 11.3 Hct: 36.8 Platelets: 210 Lymphocytes Abs: 0.64 CRP 12/05/2019 07:58 85.3 U/A 12/07/2019 Protein: 30 Glucose: >=500 Blood: Small Leukocyte Esterase: Trace Renal Epithelial: <1 Current Cultures: 12/02/2019 Right Foot Tissue Aerobic Culture: Normal Chalino After 48 Hours. Final. 12/02/2019 Right Foot Tissue AFB Culture: No Acid Fast Bacilli Seen. Preliminary. 12/02/2019 Right Foot Tissue Anaerobic Culture: No Anaerobic Growth at 2 Days. Final. 12/02/2019 Right Foot Tissue Fungus Culture: Fungal Culture in Progress. Preliminary. 12/01/2019 Blood Culture #1: No Growth After 5 Days. Final. 12/01/2019 Blood Culture #2: No Growth After 5 Days. Final. 11/30/2019 Right Foot Wound Aerobic Culture: Normal Chalino After 48 Hours. Final. 11/21/2019 Left Leg Wound Aerobic Culture: Normal Chalino After 48 Hours. Final. 11/20/2019 Right Foot Tissue Aerobic Culture: Moderate Growth Enterobacter cloacae complex, S=Youssef Sensitive. Final. 11/20/2019 Right Foot Tissue Anaerobic Culture: No Anaerobic Growth at 2 Days. Final. 11/20/2019 Right Foot Bone Aerobic Culture: Light Growth Enterobacter Cloacae Complex, S=Youssef Sensitive. Final. 11/20/2019 Right Foot Bone Anaerobic Culture: No Anaerobic Growth at 2 Days. Final. Date: 12/06/2019 New labs/results as of last note Update from previous note Tmax: 99 Urine Output: 1250 Stool: not recorded Current Antibiotics: Rocephin 2 gm IV every 24 Hours until 01/02/2020 Previous Antibiotic: Ancef 2,000 mg IV every 8 Hours Pre/Post Procedure I have personally reviewed the labs and results Test results Laboratory and Additional Data Reviewed: Labs: CBC 12/05/2019 07:58 WBC: 7.98 Hgb: 11.4 Hct: 36.3 Platelets: 228 Lymphocytes Abs: 0.52 CMP 12/05/2019 07:58 Glucose: 223 BUN: 19 Creatinine: 0.86 Sodium: 139 Potassium: 4.1 Total Protein: 6.4 Albumin: 2.4 Alk Phos: 75 AST: 20 ALT: 31 Total Bilirubin: 0.4 CRP 12/05/2019 07:58 85.3 Current Cultures: 12/02/2019 Right Foot Tissue Aerobic Culture: Normal Chalino After 48 Hours. Final. 12/02/2019 Right Foot Tissue AFB Culture: No Acid Fast Bacilli Seen. Preliminary. 12/02/2019 Right Foot Tissue Anaerobic Culture: No Anaerobic Growth at 2 Days. Final. 12/02/2019 Right Foot Tissue Fungus Culture: Fungal Culture in Progress. Preliminary. 12/01/2019 Blood Culture #1: No Growth After 5 Days. Final. 12/01/2019 Blood Culture #2: No Growth After 5 Days. Final. 11/30/2019 Right Foot Wound Aerobic Culture: Normal Chalino After 48 Hours. Final. 11/21/2019 Left Leg Wound Aerobic Culture: Normal Chalino After 48 Hours. Final. 11/20/2019 Right Foot Tissue Aerobic Culture: Moderate Growth Enterobacter cloacae complex, S=Youssef Sensitive. Final. 11/20/2019 Right Foot Tissue Anaerobic Culture: No Anaerobic Growth at 2 Days. Final. 11/20/2019 Right Foot Bone Aerobic Culture: Light Growth Enterobacter Cloacae Complex, S=Youssef Sensitive. Final. 11/20/2019 Right Foot Bone Anaerobic Culture: No Anaerobic Growth at 2 Days. Final. Pathology: 12/02/2019 A. Soft tissue, Right Foot, excision: Non-specific ulcer. Date: 12/05/2019 New labs/results as of last note Update from previous note Tmax: 98.8 Urine Output: 2900 Stool: not recorded Current Antibiotics: Rocephin 2 gm IV every 24 Hours Previous Antibiotic: Ancef 2,000 mg IV every 8 Hours Pre/Post Procedure I have personally reviewed the labs and results Test results Laboratory and Additional Data Reviewed: Labs: CBC 12/05/2019 07:58 WBC: 7.98 Hgb: 11.4 Hct: 36.3 Platelets: 228 Lymphocytes Abs: 0.52 CMP 12/05/2019 07:58 Glucose: 223 BUN: 19 Creatinine: 0.86 Sodium: 139 Potassium: 4.1 Total Protein: 6.4 Albumin: 2.4 Alk Phos: 75 AST: 20 ALT: 31 Total Bilirubin: 0.4 CRP 12/05/2019 07:58 85.3 Current Cultures: 12/02/2019 Right Foot Tissue Aerobic Culture: Normal Chalino After 48 Hours. Final. 12/02/2019 Right Foot Tissue AFB Culture: No Acid Fast Bacilli Seen. Preliminary. 12/02/2019 Right Foot Tissue Anaerobic Culture: No Anaerobic Growth at 2 Days. Final. 12/02/2019 Right Foot Tissue Fungus Culture: Fungal Culture in Progress. Preliminary. 12/01/2019 Blood Culture #1: No Growth After 48 Hours. Preliminary. 12/01/2019 Blood Culture #2: No Growth After 48 Hours. Preliminary. 11/30/2019 Right Foot Wound Aerobic Culture: Normal Chalino After 48 Hours. Final. 11/21/2019 Left Leg Wound Aerobic Culture: Normal Chalino After 48 Hours. Final. 11/20/2019 Right Foot Tissue Aerobic Culture: Moderate Growth Enterobacter cloacae complex, S=Youssef Sensitive. Final. 11/20/2019 Right Foot Tissue Anaerobic Culture: No Anaerobic Growth at 2 Days. Final. 11/20/2019 Right Foot Bone Aerobic Culture: Light Growth Enterobacter Cloacae Complex, S=Youssef Sensitive. Final. 11/20/2019 Right Foot Bone Anaerobic Culture: No Anaerobic Growth at 2 Days. Final. Current Antibiotics: Rocephin 2 gm IV every 24 Hours Previous Antibiotic: Ancef 2,000 mg IV every 8 Hours Pre/Post Procedure I have personally reviewed the labs and results Test results Laboratory and Additional Data Reviewed: Results from last 7 days Lab Units 12/01/19 0648 11/30/19 1245 11/29/19 0655 SODIUM mmol/L 140 140 142 POTASSIUM mmol/L 5.0 4.9 5.1 CHLORIDE mmol/L 106 105 107 BUN mg/dL 22 24 36* CREATININE mg/dL 0.98 0.94 1.12 GLUCOSE mg/dL 223* 127* 108* CALCIUM mg/dL 9.1 9.3 9.3 Results from last 7 days Lab Units 12/01/19 0635 11/30/19 1245 WBC K/mcL 8.56 8.72 HGB g/dL 11.2* 10.8* HCT % 35.6* 35.4* PLT K/mcL 232 243 Results from last 7 days Lab Units 11/30/19 1245 ALK PHOS U/L 67 BILIRUBIN TOTAL mg/dL 0.3 TOTAL PROTEIN g/dL 6.5 ALTR U/L 56 AST U/L 42 Current Cultures: 12/02/2019 Right Foot Tissue Aerobic Culture: Normal Chalino After 24 Hours. Preliminary. 12/02/2019 Right Foot Tissue AFB Culture: No Acid Fast Bacilli Seen. Preliminary. 12/01/2019 Blood Culture #1: No Growth After 48 Hours. Preliminary. 12/01/2019 Blood Culture #2: No Growth After 48 Hours. Preliminary. 11/30/2019 Right Foot Wound Aerobic Culture: Normal Chalino After 48 Hours. Final. 11/21/2019 Left Leg Wound Aerobic Culture: Normal Chalino After 48 Hours. Final. 11/20/2019 Right Foot Tissue Aerobic Culture: Moderate Growth Enterobacter cloacae complex, S=Youssef Sensitive. Final. 11/20/2019 Right Foot Tissue Anaerobic Culture: No Anaerobic Growth at 2 Days. Final. 11/20/2019 Right Foot Bone Aerobic Culture: Light Growth Enterobacter Cloacae Complex, S=Youssef Sensitive. Final. 11/20/2019 Right Foot Bone Anaerobic Culture: No Anaerobic Growth at 2 Days. Final. Recent Cultures: 05/30/2019 Right Foot Tissue Aerobic Culture: Normal Chalino After 48 Hours. Final. 05/30/2019 Right Foot Tissue Anaerobic Culture: No Anaerobic Growth at 2 Days. Final. 03/23/2019 Right Foot Wound Aerobic Culture: Heavy Growth Raoultella Pl[place], R=Ampicillin, S=Remainder of panel. 03/09/2019 Right Foot Wound Aerobic Culture: Normal Chalino After 48 Hours. Final. 02/09/2019 Right Foot Wound Aerobic Culture: Normal Chalino After 48 Hours. Final. 01/19/2019 Right Toe Two Wound Aerobic Culture: Heavy Growth Enterobacter Cloacae Complex, S=Youssef Sensitive. Final. Radiology: Right Foot X-Ray 12/02/2019 Intraoperative fluoroscopy provided. Severe bony deformity of the foot as described. Please correlate with operative note. Chest X-Ray 11/23/2019 1. Right arm PICC line in place with tip in superior vena cava. 2. No acute pulmonary disease. 3. Cardiomegaly with evidence of prior open heart surgery. 4. No acute osseous abnormality Right Foot X-Ray 11/20/2019 IMPRESSION: Intraoperative fluoroscopy for localization during right foot and ankle reconstruction and fixation. Please see operative report for details. Left Ankle X-Ray Ordered 11/20/2019 Right Foot X-Ray 11/20/2019 FINDINGS: Two views of the right foot were obtained. There are advanced changes of Charcot arthropathy throughout the right midfoot which appears similar compared to prior examination. There are postsurgical changes of resection of the right 2nd toe proximal phalangeal head. IMPRESSION: 1. Advanced changes of Charcot arthropathy throughout the right midfoot which appear unchanged compared to prior examination. Chest AP/PA X-Ray 11/16/2019 1. No acute pulmonary disease. 2. Cardiomegaly, with evidence of prior open heart surgery. 3. Multilevel degenerative changes of the thoracic spine. MR Right Foot 05/19/2019 1. There is a superficial soft tissue ulcer again seen along the plantar aspect of the midfoot, butthere is no evidence of abscess or osteomyelitis in this region. 2. Stable appearance of the sequela of severe neuropathic arthropathy of the midfoot with collapse of the midfoot again seen resulting in a rocker bottom deformity. 3. A moderate amount of diffuse subcutaneous edema along the dorsum of the foot may be due to reactive edema or a cellulitis, but this is nonspecific. Right Foot X-Ray 04/28/2019 1. Soft tissue irregularity involving the plantar aspect of the foot likely representing the reported ulcer. No bony destruction to suggest osteomyelitis. 2. No evidence of radiopaque foreign body. 3. Stable deformity and degenerative changes involving the midfoot. Findings are consistent with Charcot joint. NM White Cell Scan Spot Limited 03/08/2017 FINDINGS: A focal area of intense abnormal white blood cell migration is noted central plantar aspect of the right foot corresponding to the area of the wound demonstrated radiographically. No other focus of white blood cell migration abnormality is evident within the right or left foot. IMPRESSION: Focal area of abnormal white blood cell migration at the plantar aspect central right foot may be at the wound itself or may be involving the bone with associated fracture as demonstrated radiographically. Anatomic detail is insufficient for differentiation between the two. Renal U/S 03/07/2017 IMPRESSION: Severe thickening of the urinary bladder wall. This could be due to outlet obstruction with hypertrophy of the wall. If there is no such history, this should be evaluated with cystoscopy. CVPS: Arterial Doppler: not on file Venous Doppler: not on file 2D Echo 11/23/2019 Moderate LV enlargement with LVH. Global systolic dysfunction with segmental features. LVEF 30% Elevated LV filling pressures RV is dilated with severe RV dysfunction Mild mitral annular calcification, mild thickening of the aortic valve without hemodynamically significant valvular disease There is a atrial level right to left shunt identified with saline contrast with free breathing andValsalva most likely via PFO LVEF unchanged from to previous echo from 2017 Surgeries: Please see above for surgical history Procedure: Right Foot I&D ADJUSTMENT EXTERNAL FIXATOR Date: 12/02/2019 Surgery: Alena Mora DPM Procedure: RIGHT FOOT RECONSTRUCTION WITH APPLICATION OF CIRCULAR STATIC EXTERNAL FIXATION Date: 11/20/2019 Surgeon: Alena Mora DPM Procedure: ARTHROPLASTY 2ND TOE RIGHT FOOT Date: 01/25/2019 Surgeon: Rosa M Robles DPM Pathology: not on file documented in this encounter* Alena Mora DPM - 03/04/2020 5:55 AM EDT Subjective: Patient is a pleasant 59-year-old male who presents to the wound care center for follow-up evaluation status post removal of external fixation for Charcot reconstruction (date of surgery 02/20/2020). Patient has been nonweightbearing in a cam boot as instructed. He has been applying dry sterile dressing, Kerlix and Zechariah bandage daily. No new pedal complaints.Denies fevers, chills, nausea, vomiting,chest pain, shortness of breath, or any other constitutional symptoms. Objective: Vascular: DP and PT pulses are palpable 2/4. Cap refill time is brisk to distal digits. Skin temperature is warm to warm from proximal tibial tuberosity to distal digits. +1 pitting edema noted to the right foot. Neuro: Gross sensation is intact. Protective sensation is absent. Dermatologic: The right foot plantar surgical incision site is well healed and the small central medial dehiscence has also healed. Maceration noted surrounding that area. All pin sites are healed asexpected without any signs of infection. The previously noted blister on the distal tuft of the right great toe with a stable eschar has healed. A partial thickness ulceration noted to right 3rd toe secondary to blister has resolved. No sign of infection. Musculoskeletal: Patient is able to wiggle digits. Compartments are soft and compressible. No calf pain. Assessment: Right lower extremity external fixation removal (Date of surgery 02/23/2020 Dr. Mora). Right midfoot wedge resection and application of external fixator for Charcot reconstruction (Date of surgery 11/20/2019 -Dr. Mora). Charcot arthropathy, midfoot, right foot Diabetes with peripheral neuropathy Hemorrhagic blister, right great toe --> deep tissue injury --> a loose eschar --> subcutaneous ulceration -->healed Dehiscence to central incision site --> down to subcutaneous layer -->healed Blister 3rd toe, right foot - resolved Plan: Patient was seen and evaluated. Discussed all clinical findings. Patient is doing well great. He has healed all this wounds. Prior radiographs of the right foot were evaluated. Good alignment noted within the midfoot with closure of the midfoot wedge and recreation of the medial longitudinal arch. Good alignment of the hindfoot given the severity of his charcot deformity. All pin sites are healed without any signs of infection No need for any debridement at this time. Tubigrip and zechariah bandage to right LE Patient is to keep nonweightbearing to the right lower extremity at all times. He is to keep everything clean and dry. All questions were answered to satisfaction. Patient is to return to clinic in 1 week for follow-up evaluation Alena Mora DPM * Lin Justice RN - 03/01/2020 9:02 AM EDT Surgical mask and gloves worn while in exam room with patient. documented in this encounter* Gloria Mcdowell RN - 03/15/2020 9:36 AM EDT This RN wore a mask and gloves while doing patient care. * Nupur Davis DPM - 03/15/2020 8:27 AM EDT HPI: Patient is a pleasant 59-year-old male who presents to the wound care center for follow-up evaluation status post removal of external fixation for Charcot reconstruction (date of surgery 02/20/2020) by Dr Mora. Patient has been nonweightbearing in a cam boot as instructed. He has been applying dry sterile dressing, Kerlix and Zechariah bandage daily. No new pedal complaints.Denies fevers, chills,nausea, vomiting, chest pain, shortness of breath, or any other constitutional symptoms. Past Medical, Surgical, Family, and Social histories reviewed and updated in [facility] along with medications and allergies. Review of Systems: Patient denies any additional gastrointestinal, hepatic, renal, pulmonary, cardiac, neurological, musculoskeletal, or psychological conditions. Objective: Vascular: DP and PT pulses are palpable 2/4. Cap refill time is brisk to distal digits. Skin temperature is warm to warm from proximal tibial tuberosity to distal digits. +1 pitting edema noted to the right foot. Neuro: Gross sensation is intact. Protective sensation is absent. Dermatologic: The right foot plantar surgical incision site is well healed and the small central medial dehiscence has also healed. All pin sites are healed as expected without any signs of infection. The previously noted blister on the distal tuft of the right great toe with a stable eschar has healed. Musculoskeletal: Patient is able to wiggle digits. Compartments are soft and compressible. No calf pain. Wound (Outpatient Only) 03/31/19 Foot Anterior;Right;Plantar (Active) Wound Length (cm) 0 cm 03/01/2020 7:00 AM Wound Width (cm) 0 cm 03/01/2020 7:00 AM Wound Depth (cm) 0.3 cm 02/09/2020 8:22 AM Wound Surface Area (cm^2) 0 cm^2 03/01/2020 7:00 AM Wound Volume (cm^3) 0.18 cm^3 02/09/2020 8:22 AM Area % Change -100 03/01/2020 7:00 AM Volume % Change 0 03/01/2020 7:00 AM Tunneling Maximum Distance (cm) 0 cm 03/01/2020 7:00 AM Tunneling Position (o'clock) 0 03/01/2020 7:00 AM Undermining Maximum Distance (cm) 1 0 cm 03/01/2020 7:00 AM Undermining Starting Position (o'clock) 1 0 03/01/2020 7:00 AM Undermining Ending Position (o'clock) 1 0 03/01/2020 7:00 AM Wound Encounter Subsequent 03/01/2020 7:00 AM Wound Progress Improving 03/01/2020 7:00 AM Non-staged Wound Description Partial thickness 02/09/2020 7:00 AM Drainage Amount None 03/01/2020 7:00 AM Drainage Description Yellow 02/09/2020 7:00 AM Odor None 03/01/2020 7:00 AM Wound Margin Attached to wound base 03/01/2020 7:00 AM Adherent Yellow Slough % None 03/01/2020 7:00 AM Moist Yellow Slough % None 03/01/2020 7:00 AM Dry Black Eschar % None 03/01/2020 7:00 AM Moist Black Eschar % None 03/01/2020 7:00 AM Epithelialization % 76-100% 03/01/2020 7:00 AM Granulation % None 03/01/2020 7:00 AM Exposed Structure None 03/01/2020 7:00 AM Wound Bed Characteristics Clean;Dry;Intact 03/01/2020 7:00 AM Wound Closure Sutures 12/28/2019 8:15 AM Angeli-wound Assessment Temperature WNL 03/01/2020 7:00 AM Treatments Not Applicable 03/01/2020 7:00 AM Hemostasis Not applicable 03/01/2020 7:00 AM Cleansed Soap and water 03/01/2020 7:00 AM Primary Dressing Collagen;Antibiotic ointment / cream 02/09/2020 8:22 AM Secondary Dressing Gauze pad;Gauze roll 02/09/2020 8:22 AM Compression Dressing Zechariah wrap 02/09/2020 8:22 AM Labs: Lab Results Component Value Date HGBA1C 8.5 (H) 02/20/2020 Lab Results Component Value Date WBC 6.01 02/09/2020 Lab Results Component Value Date SEDRATE 24 (H) 02/09/2020 Lab Results Component Value Date CRP 5.7 02/09/2020 Assessment: 1. Charcot's joint of right foot 2. 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) Plan: Patient was seen and evaluated. Discussed all clinical findings. Patient is doing well great. He has healed all this wounds. Prior radiographs of the right foot were evaluated. Good alignment noted within the midfoot with closure of the midfoot wedge and recreation of the medial longitudinal arch. Good alignment of the hindfoot given the severity of his charcot deformity. All pin sites are healed without any signs of infection No need for any debridement at this time or continued wound care Tubigrip and zechariah bandage to right LE Patient is to keep nonweightbearing to the right lower extremity at all times. Awaiting reduction of A1c for his TTC nail, planned staged procedure All questions were answered to satisfaction. Patient is to return to [place] office with Dr. Mora for follow up care Follow up in 1 weeks. Nupur Davis DPM * Paola Guallpa PSA - 03/15/2020 8:15 AM EDT Patient called today for COVID-19 screening regarding upcoming appointment in wound clinic. Have you been in close contact with anyone confirmed to have coronavirus/COVID- 19 in the past 14 days? No Have you traveled out of state or internationally in the past 14 days? No In the last 24 hours have you had any of the following symptoms? Fever over 100 F No Cough No Shortness of breath or difficulty breathing No Chills or repeated shaking with chills No Muscle pain, headache, or sore throat No Any loss of taste or smell No Diarrhea No documented in this encounter* Nuupr Davis, ELIU - 04/12/2020 1:25 PM EDT HPI: Patient is a pleasant 59-year-old male who presents to the wound care center for follow-up evaluation status post removal of external fixation for Charcot reconstruction (date of surgery 02/20/2020) by Dr Mora. Patient has been nonweightbearing in a cam boot as instructed. He has healed foot/No new pedal complaints.Denies fevers, chills, nausea, vomiting, chest pain, shortness of breath, or any other constitutional symptoms. Past Medical, Surgical, Family, and Social histories reviewed and updated in [facility] along with medications and allergies. Review of Systems: Patient denies any additional gastrointestinal, hepatic, renal, pulmonary, cardiac, neurological, musculoskeletal, or psychological conditions. Objective: Vascular: DP and PT pulses are palpable 2/4. Cap refill time is brisk to distal digits. Skin temperature is warm to warm from proximal tibial tuberosity to distal digits. +1 pitting edema noted to the right foot. Neuro: Gross sensation is intact. Protective sensation is absent. Dermatologic: The right foot plantar surgical incision site is well healed. All pin sites are healed as expected without any signs of infection. No openings. Musculoskeletal: Patient is able to wiggle digits. Compartments are soft and compressible. No calf pain. Wound (Outpatient Only) 03/31/19 Foot Anterior;Right;Plantar (Active) Wound Image 04/12/2020 1:13 PM Wound Length (cm) 0.3 cm 04/12/2020 1:13 PM Wound Width (cm) 1 cm 04/12/2020 1:13 PM Wound Depth (cm) 0.3 cm 02/09/2020 8:22 AM Wound Surface Area (cm^2) 0.3 cm^2 04/12/2020 1:13 PM Wound Volume (cm^3) 0.18 cm^3 02/09/2020 8:22 AM Area % Change 0 04/12/2020 1:13 PM Volume % Change 0 04/12/2020 1:13 PM Tunneling Maximum Distance (cm) 0 cm 03/01/2020 7:00 AM Tunneling Position (o'clock) 0 03/01/2020 7:00 AM Undermining Maximum Distance (cm) 1 0 cm 03/01/2020 7:00 AM Undermining Starting Position (o'clock) 1 0 03/01/2020 7:00 AM Undermining Ending Position (o'clock) 1 0 03/01/2020 7:00 AM Wound Encounter Subsequent 03/01/2020 7:00 AM Wound Progress Improving 03/01/2020 7:00 AM Non-staged Wound Description Partial thickness 02/09/2020 7:00 AM Drainage Amount None 04/12/2020 1:13 PM Drainage Description Yellow 02/09/2020 7:00 AM Odor None 03/01/2020 7:00 AM Wound Margin Attached to wound base 03/01/2020 7:00 AM Adherent Yellow Slough % None 03/01/2020 7:00 AM Moist Yellow Slough % None 03/01/2020 7:00 AM Dry Black Eschar % None 03/01/2020 7:00 AM Moist Black Eschar % None 03/01/2020 7:00 AM Epithelialization % 76-100% 03/01/2020 7:00 AM Granulation % None 03/01/2020 7:00 AM Exposed Structure None 03/01/2020 7:00 AM Wound Bed Characteristics Scab 04/12/2020 1:13 PM Wound Closure Sutures 12/28/2019 8:15 AM Angeli-wound Assessment Temperature WNL 03/01/2020 7:00 AM Treatments Not Applicable 03/01/2020 7:00 AM Hemostasis Not applicable 03/01/2020 7:00 AM Cleansed Soap and water 04/12/2020 1:13 PM Primary Dressing Collagen;Antibiotic ointment / cream 02/09/2020 8:22 AM Secondary Dressing Gauze pad;Gauze roll 02/09/2020 8:22 AM Compression Dressing Zechariah wrap 02/09/2020 8:22 AM Labs: Lab Results Component Value Date HGBA1C 8.5 (H) 02/20/2020 Lab Results Component Value Date WBC 6.01 02/09/2020 Lab Results Component Value Date SEDRATE 24 (H) 02/09/2020 Lab Results Component Value Date CRP 5.7 02/09/2020 Assessment: 1. Charcot's joint of right foot 2. 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) Plan: Patient was seen and evaluated. Discussed all clinical findings. Patient is doing well great. He has healed all this wounds. Prior radiographs of the right foot were evaluated. Good alignment noted within the midfoot with closure of the midfoot wedge and recreation of the medial longitudinal arch. Good alignment of the hindfoot given the severity of his charcot deformity. All pin sites are healed without any signs of infection Tubigrip and zechariah bandage to right LE Patient is to keep nonweightbearing to the right lower extremity at all times. Awaiting reduction of A1c for his TTC nail, planned staged procedure; awaiting endocrinology appointment, referral placed All questions were answered to satisfaction. Patient to follow up as scheduled with Dr. Mora Follow up in 2 weeks. Nupur Davis DPM * Gloria Mcdowell RN - 04/12/2020 1:18 PM EDT This RN wore a mask and gloves while doing patient care. documented in this encounter* Alena Mora DPM - 04/17/2020 11:07 AM EDT Error documented in this encounter* Scottie Hall, CELE - 04/25/2020 11:05 AM EDT Patient called today for COVID-19 screening regarding upcoming appointment in wound clinic. Have you been in close contact with anyone confirmed to have coronavirus/COVID- 19 in the past 14 days? No Have you traveled out of state or internationally in the past 14 days? No In the last 24 hours have you had any of the following symptoms? Fever over 100 F No Cough No Shortness of breath or difficulty breathing No Chills or repeated shaking with chills No Muscle pain, headache, or sore throat No Any loss of taste or smell No Diarrhea No Patient was reminded at this time wound clinic is not allowing visitors for social distancing purposes. Patient was informed of new procedure to gain access to wound clinic. documented in this encounter* Alena Mora DPM - 05/03/2020 1:46 PM EDT Podiatry Inpatient Progress Note 05/03/2020 Alena Mora DPM [facility] Patient: Dyllan Huertas Date of : 1960 (59 y.o.) PCP: Rohit Aguilar MD ASSESSMENT POD#2- status post Ankle and Subtalar joints Arthrodesis via intramedullary nailing, right lower extremity - (Dr. Mora) Charcot Neuroarthopathy Diabetes with peripheral neuropathy PLAN: Patient was seen and evaluated Discussed all clinical and radiographic findings Patient is doing well. Dressing is to remain clean and dry. No need for any dressing changes. Strict NWB to RLE Continue Lovenox 40 mg sq daily for [address] Awad. No need for PICC line. Okay to discharge with oral doxycycline Okay to discharge TODAY to home. Patient is well set up at home. [facility] Alena Mora DPM, MSBS Podiatric Physician and Surgeon SUBJECTIVE: Patient was seen resting comfortably in Bed. Reports that his pain is well controlled. No fevers, chills, nausea, vomiting, chest pain, shortness of breath, or any other constitutional symptoms. OBJECTIVE: Vascular: Distal digits are warm. NETWORK FIELD ENGINEER is brisk. Blister noted to right hallux is stable. No open wounds. Neuro: Gross sensation intact. Derm: Unable to evaluate with posterior splint intact, clean, and dry Musculoskeletal: Able to wiggle digits. No calf pain. * Nu Rios RN - 05/03/2020 11:19 AM EDT COMPLEX DISCHARGE Date: 05/03/2020 Time: 11:19 AM Patient Name: Dyllan Huertas Date of : 1960 Sex: Male [place] HHC discontinued as IV antibiotics changed to oral and he does not need dressing changes and will have a cast put on next week. Radha with C notified. Patient Information Primary Caregiver: Self Income Information Income Source: Government aid Income/Expense Information: Income meets expenses Resources Financial Resources: Medicare Discharge Planning Living Arrangements: Alone Support Systems: Family members Assistance Needed: minimal Type of Residence: Private residence Prior to Admission Home Care Services: Yes Discharge Readiness Expected Discharge Date: 05/03/20 [facility] Disposition D/C Disposition: Home Related to Current Admission?: Yes Agency/Destination: [facility] Options Reviewed: Explained services/benefits Reason for Choice: Patient/Family preference * Maria Isabel Awad MD - 05/03/2020 10:12 AM EDT CONSULT NOTE 05/02/2020 Patient Name: Dyllan Huertas Admit Date: MR #: [id number] : 1960 Physicians: Rohit Aguilar MD (Family); No ref. 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 antibiotic Will need to watch very closely for any recurrence of infection and treat aggressively if indicatedin the future Recommend May 03 Discontinue the order for PICC line Discontinue IV cefepime P.o. doxycycline 100 mg twice daily for 30 days Follow-up in the wound clinic on Wednesdays with myself and Dr. Mora Any dressing orders will be per I have discussed with the patient as well as hospitalist May 02 PICC line placement Cefepime 2 g IV every 12 Follow-up current OR cultures however with the extent of infection he had before it would be prudent to give prolonged IV for now hardware would be at risk for infection CBC CMP sed rate CRP blood cultures x2 half an hour apart UA MANAGER OF CASE MANAGEMENT to be sent today I have discussed with the hospitalist Chief Complaint/Reason for Visit: I am seeing this patient at the request of Dr. Emilie MD. I have reviewed the current hospital record, available laboratory, cardiology and imaging studies as well as available out patient records. History of Present Illness: Admission H&P by Ramírez Damico CNP on 05/01/2020: Dyllan Huertas is a 59 y.o. male with history of IDDM and neuropathy presents for status post right ankle arthrodesis. Dr. Mora performed the procedure today. Patient laid on bed without complaint. Patient is afebrile, vitals are stable. Patient will be on antibiotics and continue home meds. 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 doxycycline suppressive treatment for Enterobacter cloaca infection he also received Rocephinat one point eventually on May 01, 2020 patient underwent extensive surgery to the 7-hour surgery by Dr. Mora which was right foot arthrodesis subtalar arthrodesis right ankle which is corrective surgery for his Charcot and infectious disease consult for further help with antibiotic management Past medical surgical social family history nobody with boils all his details of previous history is in the notes He was a long-term suppressive treatment with doxycycline He is a chronic Schulte catheter because of nonweightbearing He had done home IV antibiotics in the past The Enterobacter cloaca he was [place] Allergy Information: I have reviewed the patient's allergies. Patient has no known allergies. Current Scheduled Meds: atorvastatin 40 mg Oral Nightly carvediloL 12.5 mg Oral BID cefePIMe (MAXIPIME) IVPB 2,000 mg Intravenous Q12H docusate sodium 100 mg Oral Daily enoxaparin (LOVENOX) injection 40 mg Subcutaneous Daily fenofibrate 160 mg Oral Daily with breakfast finasteride 2.5 mg Oral Once per day on Wed gabapentin 300 mg Oral Nightly lispro insulin 0-15 Units Subcutaneous at bedtime insulin lispro 0-30 Units Subcutaneous QAM AC insulin lispro 0-30 Units Subcutaneous Daily before lunch insulin lispro 0-30 Units Subcutaneous Before dinner insulin NPH 36 Units Subcutaneous at bedtime insulin NPH 40 Units Subcutaneous QAM levothyroxine 112 mcg Oral Daily lisinopriL 20 mg Oral BID metFORMIN 1,000 mg Oral BID oxyCODONE 5 mg Oral Q4H sodium chloride (PF) 10 mL Intracatheter Q8H LESLEY tamsulosin 0.4 mg Oral After evening meal PMH/PSH/SH/FH reviewed, no change except: He is in the hospital receiving intravenous antibiotics May [address] Mora she said the approach she took for the surgery was a totally different area than the previous infected area intraoperatively she did not find any evidence of infection the bone was hard Intra-Op cultures were not done at this point based on her information we maynot need prolonged IV antibiotics at the midline order was discontinued and he would continue to maintain p.o. antibiotic to make sure skin soft tissue healing occurs and we will need to follow him in the wound clinic on a regular basis watch closely for any infection Patient also has his brother's today Denies any pain in the right ankle Review of Systems: All systems were reviewed and negative except: No fever chills nausea vomiting diarrhea Medications Reviewed. Chart Reviewed Physical Examination: Vital Signs: Tmax: 98.6 Urine Output: 1200 Stool: not recorded BP (!) 105/59 Pulse (!) 101 Temp 98.8 F (37.1 C) (Oral) Resp 14 Ht 5' 11 Wt 115.4 kg (254 lb 6.6 oz) SpO2 95% BMI 35.48 kg/m Exam Findings: Constitutional: Awake alert answers all question HENT: Pupils reactive head: No oral candidiasis Eyes: No icterus Neck: Supple Cardiovascular: Heart S1-S2 2 by systolic murmur present no S3 Murmur Pulmonary/Chest: Clear Abdominal: Soft Musculoskeletal: No calf tenderness on the right leg he has an Zechariah bandage postop Neurological: Right great toe tip there is a blackish discoloration which will need to watch closely but he does have sensations difficult to move toes in his postop brace Skin no redness or cellulitis n prior to surgery by Dr. Abby Greggey: He is on long-term Schulte catheter because of nonweightbearing is being followed by Dr. Izquierdo IV: Right arm site looks other: He is now status post right ankle arthrodesis by Dr. Mora on 05/01/2020 postop Zechariah bandage in place is able to recall the toes some toes are not discolored they look normal I have personally reviewed the labs and results Test results Laboratory and Additional Data Reviewed: Date: 05/03/2020 New labs/results as of last note Update from previous note Tmax: 98.8 Urine Output: 700 Stool: not recorded Current Antibiotics: Maxipime 2 gm IV every 12 Hours Previous Antibiotics: Doxycycline 100 mg PO daily until June 03, suppressive treatment Merrem 1,000 mg IV every 12 Hours Rocephin 2 gm IV every 24 Hours until 01/02/2020 Ancef 2,000 mg IV I have personally reviewed the labs and results Test results Laboratory and Additional Data Reviewed: Labs: CBC 05/03/2020 03:54 WBC: 6.78 RBC: 3.46 Hgb: 9.8 Hct: 30.0 Platelets: 139 Lymphocytes Abs: 0.89 Monocytes Abs: 0.91 CMP 05/03/2020 03:54 Glucose: 157 BUN: 29 Creatinine: 1.42 Sodium: 138 Potassium: 4.3 Total Protein: 6.3 Albumin: 3.0 Calcium: 8.1 Alk Phos: 52 AST: 11 ALT: 11 Total Bilirubin: 0.3 CRP 05/03/2020 03:54 92.3 Sed Rate 05/03/2020 03:54 45 U/A 05/02/2020 18:46 Clarity: Cloudy Specific [place]: 1.031 Protein: 100 Ketones: Trace Blood: Small Leukocyte Esterase: Large WBCS: 84 RBCS: 16 Bacteria: Many WBC Clumps: Many Hyaline Casts: 11-20 Amorphous Crystals: Few Mucus: Rare Current Cultures: 05/02/2020 Urine Aerobic Culture: No Growth, Incubation Continued. Preliminary. 05/02/2020 Blood Culture #2: In Progress; No Growth to Date. Preliminary. 05/02/2020 Blood Culture #1: In Progress; No Growth to Date. Preliminary. 04/28/2020 COVID-19, Molecular SARS-CoV-2 RNA: Not Detected. Final. Radiology: Right Ankle X-Ray 05/02/2020 FINDINGS: Fourteen spot fluoroscopic images were obtained in the operating room. Fluoroscopic technique limits osseous and soft tissue detail. Images demonstrate hindfoot and ankle joint arthrodesis with tibial intramedullary tommy extending through the calcaneus and talus. An additional cannulated lag screw is present on the final images, and a transcalcaneal fixation hardware is present. There is a proximal interlocking screw. A distal fibular osteotomy is present. Alignment appears anatomic. IMPRESSION: Spot fluoroscopic images obtained during right ankle arthrodesis. Please see dictated operative report for full details. Chest X-Ray 04/26/2020 ORDERED Current antibiotic received preop Ancef Previous Antibiotics: Doxycycline 100 mg PO daily until June 03, suppressive treatment Merrem 1,000 mg IV every 12 Hours Rocephin 2 gm IV every 24 Hours until 01/02/2020 Ancef 2,000 mg IV Results from last 7 days Lab Units 05/03/20 0354 05/02/20 1127 05/01/20 1122 SODIUM mmol/L 138 140 142 POTASSIUM mmol/L 4.3 5.1 4.4 CHLORIDE mmol/L 106 106 110* BUN mg/dL 29* 22 16 CREATININE mg/dL 1.42* 1.51* 0.94 GLUCOSE mg/dL 157* 262* 114* CALCIUM mg/dL 8.1* 8.3* 9.1 Results from last 7 days Lab Units 05/03/20 0354 05/02/20 0753 05/01/20 1122 04/26/20 1510 WBC K/mcL 6.78 8.37 -- 6.59 HGB g/dL 9.8* 10.3* 12.6* 14.0 HCT % 30.0* 30.8* 37.8* 42.4 PLT K/mcL 139* 163 -- 230 Current Cultures: 04/28/2020 COVID-19, Molecular SARS-CoV-2 RNA: Not Detected. Final. Recent Cultures: 12/28/2019 - Right foot, aerobic culture: Normal [place] after 48 hours. 12/21/2019 - Right foot, aerobic - normal chalino after 48 hours 12/21/2019 - Right foot, anaerobic: No anaerobic growth at 2 days. 12/10/2019 Right Foot Wound Aerobic Culture: Normal [place] After 48 Hours. Final 12/10/2019 Right foot wound, anaerobic culture: No anaerobic growth at 2 days. Final 12/08/2019 Urine Aerobic Culture: No Growth (<1,000 CFU/mL). Final. 12/07/2019 Urine Aerobic Culture on arrival to Nursing Rehab Unit: No Growth (<1,000 CFU/mL). Final. 12/02/2019 Right Foot Tissue Aerobic Culture: Normal [place] After 48 Hours. Final. 12/02/2019 Right Foot Tissue AFB Culture: No Acid Fast Bacilli after 8 weeks. Final. 12/02/2019 Right Foot Tissue Anaerobic Culture: No Anaerobic Growth at 2 Days. Final. 12/02/2019 Right Foot Tissue Fungus Culture: No fungus isolated at 4 weeks. Final. 12/01/2019 Blood Culture #1: No Growth After 5 Days. Final. 12/01/2019 Blood Culture #2: No Growth After 5 Days. Final. 11/30/2019 Right Foot Wound Aerobic Culture: Normal [place] After 48 Hours. Final. 11/21/2019 Left Leg Wound Aerobic Culture: Normal [place] After 24 Hours. Final. 11/20/2019 Right Foot Tissue Aerobic Culture: Moderate Growth Enterobacter cloacae complex, S=Youssef Sensitive. Final. 11/20/2019 Right Foot Tissue Anaerobic Culture: No Anaerobic Growth at 2 Days. Final. 11/20/2019 Right Foot Bone Aerobic Culture: Light Growth Enterobacter Cloacae Complex, S=Youssef Sensitive. Final. 11/20/2019 Right Foot Bone Anaerobic Culture: No Anaerobic Growth at 2 Days. Final. 05/30/2019 Right Foot Tissue Aerobic Culture: Normal [place] After 48 Hours. Final. 05/30/2019 Right Foot Tissue Anaerobic Culture: No Anaerobic Growth at 2 Days. Final. 03/23/2019 Right Foot Wound Aerobic Culture: Heavy Growth Raoultella [place], R=Ampicillin, S=Remainder of panel. 03/09/2019 Right Foot Wound Aerobic Culture: Normal [place] After 48 Hours. Final. 02/09/2019 Right Foot Wound Aerobic Culture: Normal [place] After 48 Hours. Final. 01/19/2019 Right Toe Two Wound Aerobic Culture: Heavy Growth Enterobacter Cloacae Complex, S=Youssef Sensitive. Final. Radiology: Right Ankle X-Ray 05/02/2020 ORDERED Right Tib/Fib X-Ray 05/01/2020 1. Fusion of the tibia, talus, and calcaneus. Alignment is anatomic. There has been resection of the lateral malleolus. Right Ankle X-Ray 05/01/2020 FINDINGS: Images are obtained with the right ankle in a splint which obscures bony detail. There is interval resection of the distal right fibula. Internal fixation of the right ankle is seen with intramedullary tommy seen in the right tibia traversing the tibiotalar joint. Additional smaller surgical screw isseen traversing the tibiotalar joint. Internal fixation of the calcaneus is also seen with metallicrod. Ankle and calcaneal fractures demonstrate normal alignment. Large plantar calcaneal spur is seen. Advanced degenerative changes are seen about the mid foot. Mild diffuse bony demineralization isseen. IMPRESSION: Images are obtained with the right ankle with in a splint which obscures bony detail. Postsurgical changes are seen, as detailed above with normal alignment. Right Tib/Fib X-Ray 05/01/2020 Status post removal of the external fixator with no acute osseous abnormality in the right tibia orfibula or right ankle. Right Foot X-Ray 05/01/2020 1. Prior external fixator replacement. Extensive deformity in the midfoot related to prior surgicalresection or Charcot changes. Continued subluxation between talus and navicular. 2. 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 Chest X-Ray 04/26/2020 ORDERED Right Foot X-Ray 11/20/2019 IMPRESSION: Intraoperative fluoroscopy for localization during right foot and ankle reconstruction and fixation. Please see operative report for details. Left Ankle X-Ray Ordered 11/20/2019 Right Tib/Fib,Right Foot X-Ray 02/16/2020 FINDINGS: There is extensive hardware from an external fixator present. This obscures fine bony detail.A single percutaneous pin is seen entering the plantar aspect of the foot through the calcaneus, talus, and entering the distal tibia. A 2nd slightly larger metallic tommy is seen entering the posterior calcaneus extending into the talus. Degenerative changes are present in the midfoot. There is soft tissue edema. IMPRESSION: Study is limited due to overlying external fixator. No significant change in alignment. NM White Cell Scan Spot Limited 03/08/2017 FINDINGS: A focal area of intense abnormal white blood cell migration is noted central plantar aspect of the right foot corresponding to the area of the wound demonstrated radiographically. No other focus of white blood cell migration abnormality is evident within the right or left foot. IMPRESSION: Focal area of abnormal white blood cell migration at the plantar aspect central right foot may be at the wound itself or may be involving the bone with associated fracture as demonstrated radiographically. Anatomic detail is insufficient for differentiation between the two. Renal U/S 03/07/2017 IMPRESSION: Severe thickening of the urinary bladder wall. This could be due to outlet obstruction with hypertrophy of the wall. If there is no such history, this should be evaluated with cystoscopy. CVPS: Lower Arterial Doppler: not on file Lower Venous Doppler: not on file 2D Echo 11/23/2019 Moderate LV enlargement with LVH. Global systolic dysfunction with segmental features. LVEF 30% Elevated LV filling pressures RV is dilated with severe RV dysfunction Mild mitral annular calcification, mild thickening of the aortic valve without hemodynamically significant valvular disease There is a atrial level right to left shunt identified with saline contrast with free breathing andValsalva most likely via PFO LVEF unchanged from to previous echo from 2017 Surgeries: Please see above for surgical history Procedure: RIGHT ANKLE ARTHRODESIS, SUBTALAR ARTHRODESIS RIGHT ANKLE, Bone [place] Graft From RightFibula, Application of Splint Date: 05/01/2020 Alena Mora DPM Procedure: RIGHT FOOT RECONSTRUCTION WITH APPLICATION OF CIRCULAR STATIC EXTERNAL FIXATION Date: 11/20/2019 Surgeon: Alena Mora DPM Procedure: ARTHROPLASTY 2ND TOE RIGHT FOOT Date: 01/25/2019 Surgeon: Rosa M Robles DPM Pathology: 12/02/2019 A. Soft tissue, Right Foot, excision: Non-specific ulcer. * Helena Glass LPN - 05/03/2020 9:03 AM EDT Date: 05/03/2020 New labs/results as of last note Update from previous note Tmax: 98.8 Urine Output: 700 Stool: not recorded Current Antibiotics: Maxipime 2 gm IV every 12 Hours Previous Antibiotics: Doxycycline 100 mg PO daily until June 03, suppressive treatment Merrem 1,000 mg IV every 12 Hours Rocephin 2 gm IV every 24 Hours until 01/02/2020 Ancef 2,000 mg IV I have personally reviewed the labs and results Test results Laboratory and Additional Data Reviewed: Labs: CBC 05/03/2020 03:54 WBC: 6.78 RBC: 3.46 Hgb: 9.8 Hct: 30.0 Platelets: 139 Lymphocytes Abs: 0.89 Monocytes Abs: 0.91 CMP 05/03/2020 03:54 Glucose: 157 BUN: 29 Creatinine: 1.42 Sodium: 138 Potassium: 4.3 Total Protein: 6.3 Albumin: 3.0 Calcium: 8.1 Alk Phos: 52 AST: 11 ALT: 11 Total Bilirubin: 0.3 CRP 05/03/2020 03:54 92.3 Sed Rate 05/03/2020 03:54 45 U/A 05/02/2020 18:46 Clarity: Cloudy Specific [place]: 1.031 Protein: 100 Ketones: Trace Blood: Small Leukocyte Esterase: Large WBCS: 84 RBCS: 16 Bacteria: Many WBC Clumps: Many Hyaline Casts: 11-20 Amorphous Crystals: Few Mucus: Rare Current Cultures: 05/02/2020 Urine Aerobic Culture: No Growth, Incubation Continued. Preliminary. 05/02/2020 Blood Culture #2: In Progress; No Growth to Date. Preliminary. 05/02/2020 Blood Culture #1: In Progress; No Growth to Date. Preliminary. 04/28/2020 COVID-19, Molecular SARS-CoV-2 RNA: Not Detected. Final. Radiology: Right Ankle X-Ray 05/02/2020 FINDINGS: Fourteen spot fluoroscopic images were obtained in the operating room. Fluoroscopic technique limits osseous and soft tissue detail. Images demonstrate hindfoot and ankle joint arthrodesis with tibial intramedullary tommy extending through the calcaneus and talus. An additional cannulated lag screw is present on the final images, and a transcalcaneal fixation hardware is present. There is a proximal interlocking screw. A distal fibular osteotomy is present. Alignment appears anatomic. IMPRESSION: Spot fluoroscopic images obtained during right ankle arthrodesis. Please see dictated operative report for full details. Chest X-Ray 04/26/2020 ORDERED * Alena Mora DPM - 05/02/2020 4:11 PM EDT Podiatry Inpatient Progress Note 05/03/2020 Alena Mora DPM [facility] Patient: Dyllan Huertas Date of : 1960 (59 y.o.) PCP: Rohit Aguilar MD ASSESSMENT POD#1- status post Ankle and Subtalar joints Arthrodesis via intramedullary nailing, right lower extremity - (Dr. Mora) Charcot Neuroarthopathy Diabetes with peripheral neuropathy PLAN: Patient was seen and evaluated Discussed all clinical and radiographic findings Patient is doing well. Dressing is to remain clean and dry. No need for any dressing changes. Strict NWB to RLE Continue Lovenox 40 mg sq daily for [address] Rehman. No need for PICC line. Okay to discharge with oral doxycycline Okay to discharge TODAY to home. Patient is well set at home. [facility] next Wednesday Alena Mora DPM, MSBS Podiatric Physician and Surgeon SUBJECTIVE: Patient was seen resting comfortably in chair. Reports that his pain is well controlled. No fevers,chills, nausea, vomiting, chest pain, shortness of breath, or any other constitutional symptoms. OBJECTIVE: Vascular: Distal digits are warm. NETWORK FIELD ENGINEER is brisk. Neuro: Gross sensation intact Derm: Unable to evaluate with posterior splint intact, clean, and dry Musculoskeletal: Able to wiggle digits. No calf pain. * Helena Glass LPN - 05/02/2020 12:05 PM EDT CONSULT NOTE 05/02/2020 Patient Name: Dyllan Huertas Admit Date: MR #: [id number] : 1960 Physicians: Rohit Aguilar MD (Family); No ref. provider found (Referring) Assessment and Plan: Chief Complaint/Reason for Visit: I am seeing this patient at the request of Dr. Emilie MD. I have reviewed the current hospital record, available laboratory, cardiology and imaging studies as well as available out patient records. History of Present Illness: Admission H&P by Ramírez Damico CNP on 05/01/2020: Dyllan Huertas is a 59 y.o. male with history of IDDM and neuropathy presents for status post right ankle arthrodesis. Dr. Mora performed the procedure today. Patient laid on bed without complaint. Patient is afebrile, vitals are stable. Patient will be on antibiotics and continue home meds. History: Past Medical History: Diagnosis Date Coronary artery disease Diabetes mellitus, type 2 (HCC) Hyperlipidemia Hypertension Hypothyroidism Peripheral neuropathy S/P foot surgery, right 12/09/2019 11/20/2019Right foot reconstruction surgery with external fixation 12/02/2019 Right foot I and D Sleep apnea, obstructive does not use CPAP Past Surgical History: Procedure Laterality Date APPENDECTOMY ARTHRODESIS SUBTALAR Right 05/01/2020 Procedure: RIGHT ANKLE ARTHRODESIS, SUBTALAR ARTHRODESIS RIGHT ANKLE, Bone [place] Graft From RightFibula, Application of Splint; Surgeon: Alena Mora DPM; Location: [facility] OR; Service: Podiatry ARTHROPLASTY TOE Right 01/25/2019 Procedure: ARTHROPLASTY 2ND TOE RIGHT FOOT; Surgeon: Rosa M Robles DPM; Location: [facility] [place]; Service: Podiatry CABG 2017 CARDIAC SURGERY 2017 CABG tripe bypass CLOSED REDUCTION PERCUTANEOUS PINNING LOWER EXTREMITY N/A 12/02/2019 Procedure: ADJUSTMENT of EXTERNAL FIXATOR; Surgeon: Alena Mora DPM; Location: [facility] OR; Service: Podiatry CYST REMOVED FROM CHEST N/A INCISION AND DRAINAGE FOOT AND ANKLE Right 12/02/2019 Procedure: RIGHT FOOT I&D; Surgeon: Alena Mora DPM; Location: [facility] OR; Service: Podiatry METAL IN LEFT LEFT WRIST AND LEFT 5TH TOE Left ORTHOPEDIC SURGERY RECONSTRUCTION FOOT CHARCOT Right 11/20/2019 Procedure: RIGHT FOOT RECONSTRUCTION WITH APPLICATION OF CIRCULAR STATIC EXTERNAL FIXATION; Surgeon: Alena Mora DPM; Location: [facility] OR; Service: Podiatry RT FOOT SURGERY Right TUMMY TUCK N/A Family History Problem Relation Age of Onset Heart disease Mother Heart disease Father Heart disease Brother Diabetes Sister Social History Socioeconomic History Marital status: Single Spouse name: Not on file Number of children: Not on file Years of education: Not on file Highest education level: Not on file Occupational History Not on file Social Needs Financial resource strain: Not on file Food insecurity Worry: Not on file Inability: Not on file Transportation needs Medical: Not on file Non-medical: Not on file Tobacco Use Smoking status: Never Smoker Smokeless tobacco: Never Used Substance and Sexual Activity Alcohol use: Yes Comment: occassionally mostly beer Drug use: Never Sexual activity: Not Currently Lifestyle Physical activity Days per week: Not on file Minutes per session: Not on file Stress: Not on file Relationships Social connections Talks on phone: Not on file Gets together: Not on file Attends scientologist service: Not on file Active member of club or organization: Not on file Attends meetings of clubs or organizations: Not on file Relationship status: Not on file Other Topics Concern Not on file Social History Narrative Not on file Allergy Information: I have reviewed the patient's allergies. Patient has no known allergies. Home Medications: Prior to Admission medications Medication Sig Start Date End Date Taking? Authorizing Provider calcium carbonate 400 mg Chew Chew and Swallow 1,000 mg daily . Yes Historical Provider, carvediloL (COREG) 12.5 MG tablet Take 1 (one) tablet (12.5 mg total) by mouth 2 (two) times a day . 12/19/19 05/01/20 Yes Helena Sheldon CNP docusate sodium (COLACE) 100 MG capsule Take 100 mg by mouth daily . Yes Historical Provider, FENOFIBRATE MICRONIZED ORAL Take 160 mg by mouth daily . 01/26/15 Yes Historical Provider, finasteride (PROSCAR) 5 mg tablet Take 2.5 mg by mouth Wednesday, Wednesday, Wednesday at bedtime . 04/16/15 Yes Historical Provider, gabapentin (NEURONTIN) 300 MG capsule gabapentin GABAPENTIN 300 MG CAPS One tablet by mouth daily GABAPENTIN [id number] Sebastián Dailey MD 06-15-2017 [facility] ([id number]) 06/15/17 Yes Historical Provider, insulin NPH (HumuLIN,NovoLIN) 100 unit/mL injection Take 30 units with breakfast, and 26 units at bedtime . Patient taking differently: Take 40 units with breakfast, and 36 units at bedtime . 12/19/19 Yes Helena Sheldon CNP insulin regular (HumuLIN R, NovoLIN R) 100 unit/mL injection Take 12 units three times daily beforemeals . 12/19/19 Yes Sera Bowden MD levothyroxine (SYNTHROID, LEVOTHROID) 112 MCG tablet once daily . 01/12/19 Yes Historical Provider, lisinopriL (PRINIVIL,ZESTRIL) 20 MG tablet Take 20 mg by mouth 2 (two) times a day . Yes HistoricalProviderMD magnesium oxide (MAG-OX) 400 mg (241.3 mg magnesium) tablet Take 400 mg by mouth daily . Yes Historical Provider, melatonin 5 mg Tab Take 10 mg by mouth daily . Yes Historical Provider, metFORMIN (GLUCOPHAGE-XR) 500 MG 24 hr tablet 1,000 mg 2 (two) times a day . 10/21/18 Yes HistoricalProviderMD multivitamin (THERAGRAN) per tablet Take 1 tablet by mouth daily . Yes Historical Provider, rosuvastatin (CRESTOR) 20 MG tablet 20 mg daily . 09/17/16 Yes Historical Provider, tamsulosin (FLOMAX) 0.4 mg capsule tamsulosin TAMSULOSIN HCL 0.4 MG CAPS One tablet by mouth daily TAMSULOSIN HCL [id number] Sebastián Dailey MD 06-15-2017 [facility] ([id number]) 06/15/17 Yes Historical Provider, alteplase (CATH AMANDO) 2 mg injection Instill 2mL into clotted IV line as needed for brake liner. May repeat as needed. Do not use on Peripheral or Midlines . 12/19/19 Maria Isabel Awad MD heparin, porcine, PF, 100 unit/mL Syrg For Open Ended Midline/PICC/CVC/Port: Flush with 5ml heparinas final flush after each use, weekly if not used. Use 3ml for Peripheral IV . 12/19/19 Maria Isabel Awad MD nitroGLYCERIN (NITROSTAT) 0.[address] 1 (one) tablet (0.4 mg total) under the tongue every 5 (five) minutes as needed for chest pain , if no relief after 3 doses call 911 . 12/19/19 01/18/20Helena Sheldon, DE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 Current Scheduled Meds: atorvastatin 40 mg Oral Nightly carvediloL 12.5 mg Oral BID docusate sodium 100 mg Oral Daily enoxaparin (LOVENOX) injection 40 mg Subcutaneous Daily fenofibrate 160 mg Oral Daily with breakfast finasteride 2.5 mg Oral Once per day on Wed gabapentin 300 mg Oral Nightly lispro insulin 0-15 Units Subcutaneous at bedtime insulin lispro 0-30 Units Subcutaneous QAM AC insulin lispro 0-30 Units Subcutaneous Daily before lunch insulin lispro 0-30 Units Subcutaneous Before dinner insulin NPH 36 Units Subcutaneous at bedtime insulin NPH 40 Units Subcutaneous QAM levothyroxine 112 mcg Oral Daily lisinopriL 20 mg Oral BID metFORMIN 1,000 mg Oral BID oxyCODONE 5 mg Oral Q4H tamsulosin 0.4 mg Oral After evening meal Review of Systems: The following system(s) were reviewed and pertinent findings noted: Constitutional:No fever, no weight change, no night sweats Eyes:No visual changes ENT:No sore throat, no ear pain CV:No chest pain. No dypnea with exertion, no palpitations, no orthopnea. No ankle swelling and no symptoms of intermittent claudication. Resp:No cough, sputum, wheeze or hemoptysis. No pleurisy. GI:No abdominal pain.No nausea, vomiting or diarrhea. No rectal bleeding. :No frequency, urgency, dysuria or hematuria. Neuro:No headache, dizziness. No focal weakness or paresthesias. Integumentary:No skin rash MuscSkel:No joint pain, no swelling, no synovitis or joint effusion. Wound: Heme/lymphatic:No apparent lymphadenopathy. Psych:N/A Physical Examination: Vital Signs: Tmax: 98.6 Urine Output: 1200 Stool: not recorded BP 117/67 Pulse 75 Temp 97.8 F (36.6 C) (Oral) Resp 15 Ht 5' 11 Wt 115.4 kg (254 lb 6.6 oz) SpO2 96% BMI 35.48 kg/m Exam Findings: Constitutional: HENT: Head: Eyes: Neck: Cardiovascular: Murmur Pulmonary/Chest: Abdominal: Musculoskeletal: Neurological: Skin: Wound: Wound (Outpatient Only) 03/31/19 Foot Anterior;Right;Plantar (Active) Schulte: IV: Other: Current Antibiotics: Previous Antibiotics: Doxycycline 100 mg PO daily until June 03, suppressive treatment Merrem 1,000 mg IV every 12 Hours Rocephin 2 gm IV every 24 Hours until 01/02/2020 Ancef 2,000 mg IV I have personally reviewed the labs and results Test results Laboratory and Additional Data Reviewed: Results from last 7 days Lab Units 05/01/20 1122 SODIUM mmol/L 142 POTASSIUM mmol/L 4.4 CHLORIDE mmol/L 110* BUN mg/dL 16 CREATININE mg/dL 0.94 GLUCOSE mg/dL 114* CALCIUM mg/dL 9.1 Results from last 7 days Lab Units 05/02/20 0753 05/01/20 1122 04/26/20 1510 WBC K/mcL 8.37 -- 6.59 HGB g/dL 10.3* 12.6* 14.0 HCT % 30.8* 37.8* 42.4 PLT K/mcL 163 -- 230 Current Cultures: 04/28/2020 COVID-19, Molecular SARS-CoV-2 RNA: Not Detected. Final. Recent Cultures: 12/28/2019 - Right foot, aerobic culture: Normal [place] after 48 hours. 12/21/2019 - Right foot, aerobic - normal chalino after 48 hours 12/21/2019 - Right foot, anaerobic: No anaerobic growth at 2 days. 12/10/2019 Right Foot Wound Aerobic Culture: Normal [place] After 48 Hours. Final 12/10/2019 Right foot wound, anaerobic culture: No anaerobic growth at 2 days. Final 12/08/2019 Urine Aerobic Culture: No Growth (<1,000 CFU/mL). Final. 12/07/2019 Urine Aerobic Culture on arrival to Nursing Rehab Unit: No Growth (<1,000 CFU/mL). Final. 12/02/2019 Right Foot Tissue Aerobic Culture: Normal [place] After 48 Hours. Final. 12/02/2019 Right Foot Tissue AFB Culture: No Acid Fast Bacilli after 8 weeks. Final. 12/02/2019 Right Foot Tissue Anaerobic Culture: No Anaerobic Growth at 2 Days. Final. 12/02/2019 Right Foot Tissue Fungus Culture: No fungus isolated at 4 weeks. Final. 12/01/2019 Blood Culture #1: No Growth After 5 Days. Final. 12/01/2019 Blood Culture #2: No Growth After 5 Days. Final. 11/30/2019 Right Foot Wound Aerobic Culture: Normal [place] After 48 Hours. Final. 11/21/2019 Left Leg Wound Aerobic Culture: Normal [place] After 24 Hours. Final. 11/20/2019 Right Foot Tissue Aerobic Culture: Moderate Growth Enterobacter cloacae complex, S=Youssef Sensitive. Final. 11/20/2019 Right Foot Tissue Anaerobic Culture: No Anaerobic Growth at 2 Days. Final. 11/20/2019 Right Foot Bone Aerobic Culture: Light Growth Enterobacter Cloacae Complex, S=Youssef Sensitive. Final. 11/20/2019 Right Foot Bone Anaerobic Culture: No Anaerobic Growth at 2 Days. Final. 05/30/2019 Right Foot Tissue Aerobic Culture: Normal [place] After 48 Hours. Final. 05/30/2019 Right Foot Tissue Anaerobic Culture: No Anaerobic Growth at 2 Days. Final. 03/23/2019 Right Foot Wound Aerobic Culture: Heavy Growth Raoultella [place], R=Ampicillin, S=Remainder of panel. 03/09/2019 Right Foot Wound Aerobic Culture: Normal [place] After 48 Hours. Final. 02/09/2019 Right Foot Wound Aerobic Culture: Normal [place] After 48 Hours. Final. 01/19/2019 Right Toe Two Wound Aerobic Culture: Heavy Growth Enterobacter Cloacae Complex, S=Youssef Sensitive. Final. Radiology: Right Ankle X-Ray 05/02/2020 ORDERED Right Tib/Fib X-Ray 05/01/2020 1. Fusion of the tibia, talus, and calcaneus. Alignment is anatomic. There has been resection of the lateral malleolus. Right Ankle X-Ray 05/01/2020 FINDINGS: Images are obtained with the right ankle in a splint which obscures bony detail. There is interval resection of the distal right fibula. Internal fixation of the right ankle is seen with intramedullary tommy seen in the right tibia traversing the tibiotalar joint. Additional smaller surgical screw isseen traversing the tibiotalar joint. Internal fixation of the calcaneus is also seen with metallicrod. Ankle and calcaneal fractures demonstrate normal alignment. Large plantar calcaneal spur is seen. Advanced degenerative changes are seen about the mid foot. Mild diffuse bony demineralization isseen. IMPRESSION: Images are obtained with the right ankle with in a splint which obscures bony detail. Postsurgical changes are seen, as detailed above with normal alignment. Right Tib/Fib X-Ray 05/01/2020 Status post removal of the external fixator with no acute osseous abnormality in the right tibia orfibula or right ankle. Right Foot X-Ray 05/01/2020 1. Prior external fixator replacement. Extensive deformity in the midfoot related to prior surgicalresection or Charcot changes. Continued subluxation between talus and navicular. 2. 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 Chest X-Ray 04/26/2020 ORDERED Right Foot X-Ray 11/20/2019 IMPRESSION: Intraoperative fluoroscopy for localization during right foot and ankle reconstruction and fixation. Please see operative report for details. Left Ankle X-Ray Ordered 11/20/2019 Right Tib/Fib,Right Foot X-Ray 02/16/2020 FINDINGS: There is extensive hardware from an external fixator present. This obscures fine bony detail.A single percutaneous pin is seen entering the plantar aspect of the foot through the calcaneus, talus, and entering the distal tibia. A 2nd slightly larger metallic tommy is seen entering the posterior calcaneus extending into the talus. Degenerative changes are present in the midfoot. There is soft tissue edema. IMPRESSION: Study is limited due to overlying external fixator. No significant change in alignment. NM White Cell Scan Spot Limited 03/08/2017 FINDINGS: A focal area of intense abnormal white blood cell migration is noted central plantar aspect of the right foot corresponding to the area of the wound demonstrated radiographically. No other focus of white blood cell migration abnormality is evident within the right or left foot. IMPRESSION: Focal area of abnormal white blood cell migration at the plantar aspect central right foot may be at the wound itself or may be involving the bone with associated fracture as demonstrated radiographically. Anatomic detail is insufficient for differentiation between the two. Renal U/S 03/07/2017 IMPRESSION: Severe thickening of the urinary bladder wall. This could be due to outlet obstruction with hypertrophy of the wall. If there is no such history, this should be evaluated with cystoscopy. CVPS: Lower Arterial Doppler: not on file Lower Venous Doppler: not on file 2D Echo 11/23/2019 Moderate LV enlargement with LVH. Global systolic dysfunction with segmental features. LVEF 30% Elevated LV filling pressures RV is dilated with severe RV dysfunction Mild mitral annular calcification, mild thickening of the aortic valve without hemodynamically significant valvular disease There is a atrial level right to left shunt identified with saline contrast with free breathing andValsalva most likely via PFO LVEF unchanged from to previous echo from 2017 Surgeries: Please see above for surgical history Procedure: RIGHT ANKLE ARTHRODESIS, SUBTALAR ARTHRODESIS RIGHT ANKLE, Bone [place] Graft From RightFibula, Application of Splint Date: 05/01/2020 Alena Mora DPM Procedure: RIGHT FOOT RECONSTRUCTION WITH APPLICATION OF CIRCULAR STATIC EXTERNAL FIXATION Date: 11/20/2019 Surgeon: Alena Mora DPM Procedure: ARTHROPLASTY 2ND TOE RIGHT FOOT Date: 01/25/2019 Surgeon: Rosa M Robles DPM Pathology: 12/02/2019 A. Soft tissue, Right Foot, excision: Non-specific ulcer. * Nancy Cueto CNP - 05/02/2020 10:59 AM EDT [facility] Inpatient Follow-up 05/02/2020 Nancy Cueto CNP [facility] Patient: Dyllan Huertas Date of : 1960 (59 y.o.) PCP: Rohit Aguilar MD ASSESSMENT/PLAN: Active Problems: S/P ankle arthrodesis PLAN: 05/02 -ID following, Continue cefepime IV, PICC line placement -Blood cultures pending -Urinalysis shows leukocytes and bacteria -Urine culture pending SUBJECTIVE: Patient reports mild LE discomfort, relief obtained from pain medication. All other systems reviewed and negative other than noted above. OBJECTIVE: Physical Examination: BP 115/69 Pulse 80 Temp 98.1 F (36.7 C) (Oral) Resp 14 Ht 5' 11 Wt 115.4 kg (254 lb 6.6 oz) SpO2 99% BMI 35.48 kg/m General Appearance: Alert, well appearing, and in no acute distress. HEENT: Head - Normocephalic, atraumatic. Eyes - ALEKS bilaterally and EOMI. Ears - normal external appearance, hearing intact. Nose - normal, no erythema. Throat - mucous membranes moist, pharynx without lesions. Neck: Supple, trachea midline. Cardiovascular: S1, S2 normal. No murmurs, rubs, clicks or gallops appreciated. No pedal edema. Respiratory: Lungs clear to auscultation, no wheezes, rales or rhonchi heard. Abdomen: Soft, non-tender, normal bowel sounds, non-distended, no masses or organomegaly appreciated. Neurological: Grossly normal motor and sensory exam. No focal deficits. Musculoskeletal: No joint tenderness, deformity or swelling. Skin: Normal coloration and turgor. No rashes.Splint right ankle and foot, a blister on right greattoe, filled with blood, no inflammation in surrounding skin. Decreased sensory on bilateral toes (chronic due to peripheral neuropathy) Psych: Alert, oriented x 3. Normal mood and affect. CURRENT MEDICATIONS: atorvastatin 40 mg Oral Nightly carvediloL 12.5 mg Oral BID cefePIMe (MAXIPIME) IVPB 2,000 mg Intravenous Q12H docusate sodium 100 mg Oral Daily enoxaparin (LOVENOX) injection 40 mg Subcutaneous Daily fenofibrate 160 mg Oral Daily with breakfast finasteride 2.5 mg Oral Once per day on Wed gabapentin 300 mg Oral Nightly lispro insulin 0-15 Units Subcutaneous at bedtime insulin lispro 0-30 Units Subcutaneous QAM AC insulin lispro 0-30 Units Subcutaneous Daily before lunch insulin lispro 0-30 Units Subcutaneous Before dinner insulin NPH 36 Units Subcutaneous at bedtime insulin NPH 40 Units Subcutaneous QAM levothyroxine 112 mcg Oral Daily lisinopriL 20 mg Oral BID metFORMIN 1,000 mg Oral BID oxyCODONE 5 mg Oral Q4H sodium chloride (PF) 10 mL Intracatheter Q8H LESLEY tamsulosin 0.4 mg Oral After evening meal Results/Medications Reviewed 05/02/20 10:08 PM: Results from last 7 days Lab Units 05/02/20 1127 05/01/20 1122 SODIUM mmol/L 140 142 POTASSIUM mmol/L 5.1 4.4 CHLORIDE mmol/L 106 110* BUN mg/dL 22 16 CREATININE mg/dL 1.51* 0.94 GLUCOSE mg/dL 262* 114* CALCIUM mg/dL 8.3* 9.1 Results from last 7 days Lab Units 05/02/20 0753 05/01/20 1122 04/26/20 1510 WBC K/mcL 8.37 -- 6.59 HGB g/dL 10.3* 12.6* 14.0 HCT % 30.8* 37.8* 42.4 PLT K/mcL 163 -- 230 Results from last 7 days Lab Units 05/01/20 1122 04/26/20 1510 INR 1.0 1.0 Invalid input(s): LABALBU CULTURES: Reviewed 10:08 PM IMAGING: Reviewed 10:08 PM * Lyndsey Byrd, RN - 05/02/2020 12:06 AM EDT Answered patient's call light. Patient stated that he is beginning to have more pain. Called Lin Julio [employer]ICAL SURGICAL TECH to see if this nurse can give something for breakthough pain. Awaiting orders. documented in this encounter* Gloria Mcdowell RN - 05/10/2020 9:39 AM EDT This RN wore a mask and gloves while doing patient care. * Phoebe Duncan RN - 05/10/2020 8:15 AM EDT Date: 05/10/2020 No new labs/ results as of last note: 05/03/2020 Current Antibiotics: Doxycycline 100 mg PO BID Previous Antibiotics: Maxipime 2 grams IV every 12 hours Doxycycline 100 mg PO daily until June 03, suppressive treatment Merrem 1,000 mg IV every 12 Hours Rocephin 2 gm IV every 24 Hours until 01/02/2020 Ancef 2,000 mg IV Update from previous note Current Cultures: 05/02/2020 Urine Aerobic Culture: No Growth. Final. 05/02/2020 Blood Culture #2: In Progress; No Growth after 5 days. Final. 05/02/2020 Blood Culture #1: In Progress; No Growth after 5 days. Final. Dressing: Per Dr. Mora * Paola Guallpa PSA - 05/10/2020 8:15 AM EDT Patient called today for COVID-19 screening regarding upcoming appointment in wound clinic. Pt did not answer. Message was left stating to call wound clinic if any of these answers are yes. Have you been in close contact with anyone confirmed to have coronavirus/COVID- 19 in the past 14 days? NO Have you traveled out of state or internationally in the past 14 days? NO In the last 24 hours have you had any of the following symptoms? Fever over 100 F NO Cough NO Shortness of breath or difficulty breathing NO Chills or repeated shaking with chills NO Muscle pain, headache, or sore throat NO Any loss of taste or smell NO Diarrhea NO Patient was reminded at this time wound clinic is not allowing visitors for social distancing purposes. Patient was informed of new procedure to gain access to wound clinic. * Maria Isabel Awad MD - 05/10/2020 8:15 AM EDT CONSULT NOTE 05/02/2020 Patient Name: Dyllan Huertas Admit Date: MR #: [id number] : 1960 Physicians: Rohit Aguilar MD (Family); No ref. 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 antibiotic Will need to watch very closely for any recurrence of infection and treat aggressively if indicatedin the future May 10 New blister of the right great toe Postop wound of the right ankle from surgery in May 01, 2020 Recommend May 10 Cast was changed by podiatry today incision looks good without any evidence of secondary infection Doxycycline 100 mg p.o. twice a day continued for total of 1 month he has enough Revisit 2 weeks May 03 Discontinue the order for PICC line Discontinue IV cefepime P.o. doxycycline 100 mg twice daily for 30 days Follow-up in the wound clinic on Wednesday with myself and Dr. Mora Any dressing orders will be per I have discussed with the patient as well as hospitalist May 02 PICC line placement Cefepime 2 g IV every 12 Follow-up current OR cultures however with the extent of infection he had before it would be prudent to give prolonged IV for now hardware would be at risk for infection CBC CMP sed rate CRP blood cultures x2 half an hour apart [employer]GER [employer] CASE MANAGEMENT to be sent today I have discussed with the hospitalist Chief Complaint/Reason for Visit: I am seeing this patient at the request of Dr. Emilie MD. I have reviewed the current hospital record, available laboratory, cardiology and imaging studies as well as available out patient records. History of Present Illness: Admission H&P by Ramírez Damico CNP on 05/01/2020: Dyllan Huertas is a 59 y.o. male with history of IDDM and neuropathy presents for status post right ankle arthrodesis. Dr. Mora performed the procedure today. Patient laid on bed without complaint. Patient is afebrile, vitals are stable. Patient will be on antibiotics and continue home meds. 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 doxycycline suppressive treatment for Enterobacter cloaca infection he also received Rocephinat one point eventually on May 01, 2020 patient underwent extensive surgery to the 7-hour surgery by Dr. Mora which was right foot arthrodesis subtalar arthrodesis right ankle which is corrective surgery for his Charcot and infectious disease consult for further help with antibiotic management Past medical surgical social family history nobody with boils all his details of previous history is in the notes He was a long-term suppressive treatment with doxycycline He is a chronic Schulte catheter because of nonweightbearing He had done home IV antibiotics in the past The Enterobacter cloaca he was [place] Allergy Information: I have reviewed the patient's allergies. Patient has no known allergies. Current Scheduled Meds: PMH/PSH/SH/ reviewed, no change except: He is in the hospital receiving intravenous antibiotics May [address] Mora she said the approach she took for the surgery was a totally different area than the previous infected area intraoperatively she did not find any evidence of infection the bone was hard Intra-Op cultures were not done at this point based on her information we maynot need prolonged IV antibiotics at the midline order was discontinued and he would continue to maintain p.o. antibiotic to make sure skin soft tissue healing occurs and we will need to follow him in the wound clinic on a regular basis watch closely for any infection Patient also has his brother's today Denies any pain in the right ankle Review of Systems: All systems were reviewed and negative except: No fever chills nausea vomiting diarrhea Medications Reviewed. Chart Reviewed Physical Examination: Vital Signs: Tmax: 98.6 Urine Output: 1200 Stool: not recorded BP (!) 151/76 Pulse 68 Temp 97.8 F (36.6 C) (Infrared) Resp 18 SpO2 100% Exam Findings: Constitutional: Awake alert answers all question HENT: Pupils reactive head: No oral candidiasis Eyes: No icterus Neck: Supple Cardiovascular: Heart S1-S2 2 by systolic murmur present no S3 Murmur Pulmonary/Chest: Clear Abdominal: Soft Musculoskeletal: No calf tenderness on the right leg he has an Zechariah bandage postop Neurological: Right great toe tip there is a blackish discoloration which will need to watch closely but he does have sensations difficult to move toes in his postop brace Skin no redness or cellulitis n prior to surgery by Dr. Abby Schulte: He is on long-term Schulte catheter because of nonweightbearing is being followed by Dr. Izquierdo IV: Right arm site looks other: He is now status post right ankle arthrodesis by Dr. Mora on 05/01/2020 postop [address] bandage in place is able to recall the toes some toes are not discolored they look normal May 10 incision looks good per podiatry at the time of changing the cast Wound (Outpatient Only) 03/31/19 Foot Anterior;Right;Plantar (Active) Wound Image 04/26/2020 1:00 PM Wound Length (cm) 0 cm 04/26/2020 1:00 PM Wound Width (cm) 0 cm 04/26/2020 1:00 PM Wound Depth (cm) 0 cm 04/26/2020 1:00 PM Wound Surface Area (cm^2) 0 cm^2 04/26/2020 1:00 PM Wound Volume (cm^3) 0 cm^3 04/26/2020 1:00 PM Area % Change -100 04/26/2020 1:00 PM Volume % Change 0 04/26/2020 1:00 PM Tunneling Maximum Distance (cm) 0 cm 04/26/2020 1:00 PM Tunneling Position (o'clock) 0 04/26/2020 1:00 PM Undermining Maximum Distance (cm) 1 0 cm 04/26/2020 1:00 PM Undermining Starting Position (o'clock) 1 0 04/26/2020 1:00 PM Undermining Ending Position (o'clock) 1 0 04/26/2020 1:00 PM Wound Encounter Subsequent 04/26/2020 1:00 PM Wound Progress Improving 04/26/2020 1:00 PM Non-staged Wound Description Partial thickness 02/09/2020 7:00 AM Drainage Amount None 04/26/2020 1:00 PM Drainage Description Yellow 02/09/2020 7:00 AM Odor None 04/26/2020 1:00 PM Wound Margin Attached to wound base 03/01/2020 7:00 AM Adherent Yellow Slough % None 04/26/2020 1:00 PM Moist Yellow Slough % None 04/26/2020 1:00 PM Dry Black Eschar % None 04/26/2020 1:00 PM Moist Black Eschar % None 04/26/2020 1:00 PM Epithelialization % 76-100% 04/26/2020 1:00 PM Granulation % None 04/26/2020 1:00 PM Exposed Structure None 04/26/2020 1:00 PM Wound Bed Characteristics Clean;Dry;Intact 04/26/2020 1:00 PM Wound Closure Sutures 12/28/2019 8:15 AM Angeli-wound Assessment Temperature WNL 04/26/2020 1:00 PM Treatments Not Applicable 04/26/2020 1:00 PM Hemostasis Not applicable 04/26/2020 1:00 PM Cleansed Soap and water 04/26/2020 1:00 PM Primary Dressing Collagen;Antibiotic ointment / cream 02/09/2020 8:22 AM Secondary Dressing Gauze pad;Gauze roll 02/09/2020 8:22 AM Compression Dressing Tubilar eleastic bandage 04/26/2020 1:00 PM Wound 05/01/20 Surgical Wound Foot Right (Active) Wound 05/10/20 Great Toe Anterior;Right (Active) Wound Image 05/10/2020 7:59 AM Wound Length (cm) 1.7 cm 05/10/2020 7:59 AM Wound Width (cm) 4 cm 05/10/2020 7:59 AM Wound Depth (cm) 0 cm 05/10/2020 7:59 AM Wound Surface Area (cm^2) 6.8 cm^2 05/10/2020 7:59 AM Wound Volume (cm^3) 0 cm^3 05/10/2020 7:59 AM Area % Change 0 05/10/2020 7:59 AM Drainage Amount None 05/10/2020 7:59 AM I have personally reviewed the labs and results Test results Laboratory and Additional Data Reviewed: Date: 05/10/2020 No new labs/ results as of last note: 05/03/2020 Current Antibiotics: Doxycycline 100 mg PO BID Previous Antibiotics: Maxipime 2 grams IV every 12 hours Doxycycline 100 mg PO daily until June 03, suppressive treatment Merrem 1,000 mg IV every 12 Hours Rocephin 2 gm IV every 24 Hours until 01/02/2020 Ancef 2,000 mg IV Update from previous note Current Cultures: 05/02/2020 Urine Aerobic Culture: No Growth. Final. 05/02/2020 Blood Culture #2: In Progress; No Growth after 5 days. Final. 05/02/2020 Blood Culture #1: In Progress; No Growth after 5 days. Final. Dressing: Per Dr. Mora Date: 05/03/2020 New labs/results as of last note Update from previous note Tmax: 98.8 Urine Output: 700 Stool: not recorded Current Antibiotics: Maxipime 2 gm IV every 12 Hours Previous Antibiotics: Doxycycline 100 mg PO daily until June 03, suppressive treatment Merrem 1,000 mg IV every 12 Hours Rocephin 2 gm IV every 24 Hours until 01/02/2020 Ancef 2,000 mg IV I have personally reviewed the labs and results Test results Laboratory and Additional Data Reviewed: Labs: CBC 05/03/2020 03:54 WBC: 6.78 RBC: 3.46 Hgb: 9.8 Hct: 30.0 Platelets: 139 Lymphocytes Abs: 0.89 Monocytes Abs: 0.91 CMP 05/03/2020 03:54 Glucose: 157 BUN: 29 Creatinine: 1.42 Sodium: 138 Potassium: 4.3 Total Protein: 6.3 Albumin: 3.0 Calcium: 8.1 Alk Phos: 52 AST: 11 ALT: 11 Total Bilirubin: 0.3 CRP 05/03/2020 03:54 92.3 Sed Rate 05/03/2020 03:54 45 U/A 05/02/2020 18:46 Clarity: Cloudy Specific [place]: 1.031 Protein: 100 Ketones: Trace Blood: Small Leukocyte Esterase: Large WBCS: 84 RBCS: 16 Bacteria: Many WBC Clumps: Many Hyaline Casts: 11-20 Amorphous Crystals: Few Mucus: Rare Current Cultures: 05/02/2020 Urine Aerobic Culture: No Growth, Incubation Continued. Preliminary. 05/02/2020 Blood Culture #2: In Progress; No Growth to Date. Preliminary. 05/02/2020 Blood Culture #1: In Progress; No Growth to Date. Preliminary. 04/28/2020 COVID-19, Molecular SARS-CoV-2 RNA: Not Detected. Final. Radiology: Right Ankle X-Ray 05/02/2020 FINDINGS: Fourteen spot fluoroscopic images were obtained in the operating room. Fluoroscopic technique limits osseous and soft tissue detail. Images demonstrate hindfoot and ankle joint arthrodesis with tibial intramedullary tommy extending through the calcaneus and talus. An additional cannulated lag screw is present on the final images, and a transcalcaneal fixation hardware is present. There is a proximal interlocking screw. A distal fibular osteotomy is present. Alignment appears anatomic. IMPRESSION: Spot fluoroscopic images obtained during right ankle arthrodesis. Please see dictated operative report for full details. Chest X-Ray 04/26/2020 ORDERED Current antibiotic received preop Ancef Previous Antibiotics: Doxycycline 100 mg PO daily until June 03, suppressive treatment Merrem 1,000 mg IV every 12 Hours Rocephin 2 gm IV every 24 Hours until 01/02/2020 Ancef 2,000 mg IV Results from last 7 days Lab Units 05/03/20 0354 05/02/20 1127 SODIUM mmol/L 138 140 POTASSIUM mmol/L 4.3 5.1 CHLORIDE mmol/L 106 106 BUN mg/dL 29* 22 CREATININE mg/dL 1.42* 1.51* GLUCOSE mg/dL 157* 262* CALCIUM mg/dL 8.1* 8.3* Results from last 7 days Lab Units 05/03/20 0354 05/02/20 0753 WBC K/mcL 6.78 8.37 HGB g/dL 9.8* 10.3* HCT % 30.0* 30.8* PLT K/mcL 139* 163 Current Cultures: 04/28/2020 COVID-19, Molecular SARS-CoV-2 RNA: Not Detected. Final. Recent Cultures: 12/28/2019 - Right foot, aerobic culture: Normal [place] after 48 hours. 12/21/2019 - Right foot, aerobic - normal [place]ino after 48 hours 12/21/2019 - Right foot, anaerobic: No anaerobic growth at 2 days. 12/10/2019 Right Foot Wound Aerobic Culture: Normal [place] After 48 Hours. Final 12/10/2019 Right foot wound, anaerobic culture: No anaerobic growth at 2 days. Final 12/08/2019 Urine Aerobic Culture: No Growth (<1,000 CFU/mL). Final. 12/07/2019 Urine Aerobic Culture on arrival to Nursing Rehab Unit: No Growth (<1,000 CFU/mL). Final. 12/02/2019 Right Foot Tissue Aerobic Culture: Normal [place] After 48 Hours. Final. 12/02/2019 Right Foot Tissue AFB Culture: No Acid Fast Bacilli after 8 weeks. Final. 12/02/2019 Right Foot Tissue Anaerobic Culture: No Anaerobic Growth at 2 Days. Final. 12/02/2019 Right Foot Tissue Fungus Culture: No fungus isolated at 4 weeks. Final. 12/01/2019 Blood Culture #1: No Growth After 5 Days. Final. 12/01/2019 Blood Culture #2: No Growth After 5 Days. Final. 11/30/2019 Right Foot Wound Aerobic Culture: Normal [place] After 48 Hours. Final. 11/21/2019 Left Leg Wound Aerobic Culture: Normal [place] After 24 Hours. Final. 11/20/2019 Right Foot Tissue Aerobic Culture: Moderate Growth Enterobacter cloacae complex, S=Youssef Sensitive. Final. 11/20/2019 Right Foot Tissue Anaerobic Culture: No Anaerobic Growth at 2 Days. Final. 11/20/2019 Right Foot Bone Aerobic Culture: Light Growth Enterobacter Cloacae Complex, S=Youssef Sensitive. Final. 11/20/2019 Right Foot Bone Anaerobic Culture: No Anaerobic Growth at 2 Days. Final. 05/30/2019 Right Foot Tissue Aerobic Culture: Normal [place] After 48 Hours. Final. 05/30/2019 Right Foot Tissue Anaerobic Culture: No Anaerobic Growth at 2 Days. Final. 03/23/2019 Right Foot Wound Aerobic Culture: Heavy Growth Raoultella [place], R=Ampicillin, S=Remainder of panel. 03/09/2019 Right Foot Wound Aerobic Culture: Normal [place] After 48 Hours. Final. 02/09/2019 Right Foot Wound Aerobic Culture: Normal [place] After 48 Hours. Final. 01/19/2019 Right Toe Two Wound Aerobic Culture: Heavy Growth Enterobacter Cloacae Complex, S=Youssef Sensitive. Final. Radiology: Right Ankle X-Ray 05/02/2020 ORDERED Right Tib/Fib X-Ray 05/01/2020 1. Fusion of the tibia, talus, and calcaneus. Alignment is anatomic. There has been resection of the lateral malleolus. Right Ankle X-Ray 05/01/2020 FINDINGS: Images are obtained with the right ankle in a splint which obscures bony detail. There is interval resection of the distal right fibula. Internal fixation of the right ankle is seen with intramedullary tommy seen in the right tibia traversing the tibiotalar joint. Additional smaller surgical screw isseen traversing the tibiotalar joint. Internal fixation of the calcaneus is also seen with metallicrod. Ankle and calcaneal fractures demonstrate normal alignment. Large plantar calcaneal spur is seen. Advanced degenerative changes are seen about the mid foot. Mild diffuse bony demineralization isseen. IMPRESSION: Images are obtained with the right ankle with in a splint which obscures bony detail. Postsurgical changes are seen, as detailed above with normal alignment. Right Tib/Fib X-Ray 05/01/2020 Status post removal of the external fixator with no acute osseous abnormality in the right tibia orfibula or right ankle. Right Foot X-Ray 05/01/2020 1. Prior external fixator replacement. Extensive deformity in the midfoot related to prior surgicalresection or Charcot changes. Continued subluxation between talus and navicular. 2. 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 Chest X-Ray 04/26/2020 ORDERED Right Foot X-Ray 11/20/2019 IMPRESSION: Intraoperative fluoroscopy for localization during right foot and ankle reconstruction and fixation. Please see operative report for details. Left Ankle X-Ray Ordered 11/20/2019 Right Tib/Fib,Right Foot X-Ray 02/16/2020 FINDINGS: There is extensive hardware from an external fixator present. This obscures fine bony detail.A single percutaneous pin is seen entering the plantar aspect of the foot through the calcaneus, talus, and entering the distal tibia. A 2nd slightly larger metallic tommy is seen entering the posterior calcaneus extending into the talus. Degenerative changes are present in the midfoot. There is soft tissue edema. IMPRESSION: Study is limited due to overlying external fixator. No significant change in alignment. NM White Cell Scan Spot Limited 03/08/2017 FINDINGS: A focal area of intense abnormal white blood cell migration is noted central plantar aspect of the right foot corresponding to the area of the wound demonstrated radiographically. No other focus of white blood cell migration abnormality is evident within the right or left foot. IMPRESSION: Focal area of abnormal white blood cell migration at the plantar aspect central right foot may be at the wound itself or may be involving the bone with associated fracture as demonstrated radiographically. Anatomic detail is insufficient for differentiation between the two. Renal U/S 03/07/2017 IMPRESSION: Severe thickening of the urinary bladder wall. This could be due to outlet obstruction with hypertrophy of the wall. If there is no such history, this should be evaluated with cystoscopy. CVPS: Lower Arterial Doppler: not on file Lower Venous Doppler: not on file 2D Echo 11/23/2019 Moderate LV enlargement with LVH. Global systolic dysfunction with segmental features. LVEF 30% Elevated LV filling pressures RV is dilated with severe RV dysfunction Mild mitral annular calcification, mild thickening of the aortic valve without hemodynamically significant valvular disease There is a atrial level right to left shunt identified with saline contrast with free breathing andValsalva most likely via PFO LVEF unchanged from to previous echo from 2017 Surgeries: Please see above for surgical history Procedure: RIGHT ANKLE ARTHRODESIS, SUBTALAR ARTHRODESIS RIGHT ANKLE, Bone [place] Graft From RightFibula, Application of Splint Date: 05/01/2020 Alena Mora DPM Procedure: RIGHT FOOT RECONSTRUCTION WITH APPLICATION OF CIRCULAR STATIC EXTERNAL FIXATION Date: 11/20/2019 Surgeon: Alena Mora DPM Procedure: ARTHROPLASTY 2ND TOE RIGHT FOOT Date: 01/25/2019 Surgeon: Rosa M Robles DPM Pathology: 12/02/2019 A. Soft tissue, Right Foot, excision: Non-specific ulcer. * Richelle Chance RN - 05/10/2020 7:57 AM EDT Nurse wore gloves and mask while taking care of patient. documented in this encounter* Alena Mora DPM - 05/10/2020 12:50 PM EDT Subjective: Patient is a pleasant 59-year-old male who presents to the wound care center 1.5 weeks status post ankle joint and subtalar joint arthrodesis via intramedullary nail fixation and treatment for his Charcot neuroarthropathy. Patient states that he is doing well. He has kept his posterior splint cleandry and intact as instructed. He has been nonweightbearing. He continues to take Lovenox injectionsonce daily. Patient reports that his right great toe blister has worsened and now is black. No other pedal complaints at this time.Denies fevers, chills, nausea, vomiting, chest pain, shortness of breath, or any other constitutional symptoms. Objective: Vascular: DP and PT pulses are palpable. Cap refill time is brisk to distal digits. Skin temperature is warm to warm from proximal tibial tuberosity to distal digits. With exception of the right great toe. Neuro: Gross sensation is intact. Protective sensation is absent. Derm: Surgical incision sites are well coapted with sutures intact. No angeli- incisional erythema, edema, drainage or any acute signs of infection. The right great toe has a fluid-filled serous blisterand a necrotic unstageable ulceration. No signs of infection. Musculoskeletal: Compartments are soft and compressible. No calf pain. Assessment: 1.5 weeks status post ankle and subtalar joint arthrodesis via IM nail fixation, right lower extremity (Dr. Mora) doing well Unstageable ulceration and blister, right great toe, deep tissue injury Plan: Patient was seen and evaluated. Discussed all clinical and radiographic findings. The posterior splint was removed today. All incisions are clean and dry. Regarding his right great toe blister and unstageable ulceration, I recommended the patient keeps it clean and dry. I do not recommend any the clay or debridement of this ulceration site at this time. This is secondary to secondary to trauma/deep tissue injury. We will continue to follow closely. Applied a below-knee cast to the right lower extremity. Patient is to keep his cast clean dry and intact. Continue nonweightbearing to the right lower extremity. Continue taking Lovenox injections daily for DVT prophylaxis. Follow-up in the wound care center in 2 weeks Alena Mora DPM, MSBS Podiatric Physician and Surgeon documented in this encounter* Gloria Mcdowell RN - 05/24/2020 10:57 AM EDT This RN wore a mask and gloves while doing patient care. * Phoebe Duncan RN - 05/24/2020 8:30 AM EDT Date: 05/24/2020 No new labs/ results as of last note: 05/10/2020 Update from previous note Current Antibiotics: Doxycycline 100 mg PO BID. Last day 06/02/2020. Previous Antibiotics: Maxipime 2 grams IV every 12 hours Doxycycline 100 mg PO daily until June 03, suppressive treatment Merrem 1,000 mg IV every 12 Hours Rocephin 2 gm IV every 24 Hours until 01/02/2020 Ancef 2,000 mg IV Update from previous note Current Cultures: 05/02/2020 Urine Aerobic Culture: No Growth. Final. 05/02/2020 Blood Culture #2: In Progress; No Growth after 5 days. Final. 05/02/2020 Blood Culture #1: In Progress; No Growth after 5 days. Final. Dressing: Per Dr. Mora * Maria Isabel Awad MD - 05/24/2020 8:30 AM EDT CONSULT NOTE 05/02/2020 Patient Name: Dyllan Huertas Admit Date: MR #: [id number] : 1960 Physicians: Rohit Aguilar MD (Family); No ref. 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 antibiotic Will need to watch very closely for any recurrence of infection and treat aggressively if indicatedin the future May 10 New blister of the right great toe Postop wound of the right ankle from surgery in May 01, 2020 May 24 Right foot postop wound is clean no drainage no cellulitis Enterobacter and gram-negative Recommend May 24 Doxycycline 100 g p.o. twice daily continue for now till June 18 After that we will cut it down to 1 tablet of doxycycline per day for long-term suppressive treatment may need to go up to November 03, 2020 to make it 6 months postop I looked at the films with Dr. Mora from last time Cast per Dr. Mora I will see him in 2 weeks X-ray per Dr. Mora today Labs will be done today here May 10 Cast was changed by podiatry today incision looks good without any evidence of secondary infection Doxycycline 100 mg p.o. twice a day continued for total of 1 month he has enough Revisit 2 weeks May 03 Discontinue the order for PICC line Discontinue IV cefepime P.o. doxycycline 100 mg twice daily for 30 days Follow-up in the wound clinic on Wednesday with myself and Dr. Mora Any dressing orders will be per I have discussed with the patient as well as hospitalist May 02 PICC line placement Cefepime 2 g IV every 12 Follow-up current OR cultures however with the extent of infection he had before it would be prudent to give prolonged IV for now hardware would be at risk for infection CBC CMP sed rate CRP blood cultures x2 half an hour apart [employer] MANAGEMENT to be sent today I have discussed with the hospitalist Chief Complaint/Reason for Visit: I am seeing this patient at the request of Dr. Emilie MD. I have reviewed the current hospital record, available laboratory, cardiology and imaging studies as well as available out patient records. History of Present Illness: Admission H&P by Ramírez Damico CNP on 05/01/2020: Dyllan Huertas is a 59 y.o. male with history of IDDM and neuropathy presents for status post right ankle arthrodesis. Dr. Mora performed the procedure today. Patient laid on bed without complaint. Patient is afebrile, vitals are stable. Patient will be on antibiotics and continue home meds. 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 doxycycline suppressive treatment for Enterobacter cloaca infection he also received Rocephinat one point eventually on May 01, 2020 patient underwent extensive surgery to the 7-hour surgery by Dr. Mora which was right foot arthrodesis subtalar arthrodesis right ankle which is corrective surgery for his Charcot and infectious disease consult for further help with antibiotic management Past medical surgical social family history nobody with boils all his details of previous history is in the notes He was a long-term suppressive treatment with doxycycline He is a chronic Schulte catheter because of nonweightbearing He had done home IV antibiotics in the past The Enterobacter cloaca he was [place] Allergy Information: I have reviewed the patient's allergies. Patient has no known allergies. Current Scheduled Meds: PMH/PSH/SH/FH reviewed, no change except: He is in the hospital receiving intravenous antibiotics May [address] Mora she said the approach she took for the surgery was a totally different area than the previous infected area intraoperatively she did not find any evidence of infection the bone was hard Intra-Op cultures were not done at this point based on her information we maynot need prolonged IV antibiotics at the midline order was discontinued and he would continue to maintain p.o. antibiotic to make sure skin soft tissue healing occurs and we will need to follow him in the wound clinic on a regular basis watch closely for any infection Patient also has his brother's today Denies any pain in the right ankle Review of Systems: All systems were reviewed and negative except: No fever chills nausea vomiting diarrhea Medications Reviewed. Chart Reviewed Physical Examination: Vital Signs: Tmax: 98.6 Urine Output: 1200 Stool: not recorded BP 131/72 Pulse 80 Temp 98.2 F (36.8 C) (Infrared) Resp 18 SpO2 97% Exam Findings: Constitutional: Awake alert answers all question HENT: Pupils reactive head: No oral candidiasis Eyes: No icterus Neck: Supple Cardiovascular: Heart S1-S2 2 by systolic murmur present no S3 Murmur Pulmonary/Chest: Clear Abdominal: Soft Musculoskeletal: No calf tenderness on the right leg he has an Zechariah bandage postop Neurological: Right great toe tip there is a blackish discoloration which will need to watch closely but he does have sensations difficult to move toes in his postop brace Skin no redness or cellulitis n prior to surgery by Dr. Abby Schulte: He is on long-term Schulte catheter because of nonweightbearing is being followed by Dr. Izquierdo IV: Right arm site looks other: He is now status post right ankle arthrodesis by Dr. Mora on 05/01/2020 postop Zechariah bandage in place is able to recall the toes some toes are not discolored they look normal May 10 incision looks good per podiatry at the time of changing the cast May 24 incision looks good. The right great toe eschar is also with good bleeding Wound (Outpatient Only) 03/31/19 Foot Anterior;Right;Plantar (Active) Wound Image 04/26/20 1300 Wound Length (cm) 0 cm 04/26/20 1300 Wound Width (cm) 0 cm 04/26/20 1300 Wound Depth (cm) 0 cm 04/26/20 1300 Wound Surface Area (cm^2) 0 cm^2 04/26/20 1300 Wound Volume (cm^3) 0 cm^3 04/26/20 1300 Area % Change -100 04/26/20 1300 Volume % Change 0 04/26/20 1300 Tunneling Maximum Distance (cm) 0 cm 04/26/20 1300 Tunneling Position (o'clock) 0 04/26/20 1300 Undermining Maximum Distance (cm) 1 0 cm 04/26/20 1300 Undermining Starting Position (o'clock) 1 0 04/26/20 1300 Undermining Ending Position (o'clock) 1 0 04/26/20 1300 Wound Encounter Subsequent 04/26/20 1300 Wound Progress Improving 04/26/20 1300 Non-staged Wound Description Partial thickness 02/09/20 0700 Drainage Amount None 04/26/20 1300 Drainage Description Yellow 02/09/20 0700 Odor None 04/26/20 1300 Wound Margin Attached to wound base 03/01/20 0700 Adherent Yellow Slough % None 04/26/20 1300 Moist Yellow Slough % None 04/26/20 1300 Dry Black Eschar % None 04/26/20 1300 Moist Black Eschar % None 04/26/20 1300 Epithelialization % 76-100% 04/26/20 1300 Granulation % None 04/26/20 1300 Exposed Structure None 04/26/20 1300 Wound Bed Characteristics Clean;Dry;Intact 04/26/20 1300 Wound Closure Sutures 12/28/19 0815 Angeli-wound Assessment Temperature WNL 04/26/20 1300 Treatments Not Applicable 04/26/20 1300 Hemostasis Not applicable 04/26/20 1300 Cleansed Soap and water 04/26/20 1300 Primary Dressing Collagen;Antibiotic ointment / cream 02/09/20 0822 Secondary Dressing Gauze pad;Gauze roll 02/09/20 0822 Compression Dressing Tubilar eleastic bandage 04/26/20 1300 Wound 05/01/20 Surgical Wound Foot Right (Active) Wound Image 05/24/20 0858 Wound 05/10/20 Great Toe Anterior;Right (Active) Wound Image 05/24/20 0857 Wound Length (cm) 1.7 cm 05/10/20 0759 Wound Width (cm) 4 cm 05/10/20 0759 Wound Depth (cm) 0 cm 05/10/20 0759 Wound Surface Area (cm^2) 6.8 cm^2 05/10/20 0759 Wound Volume (cm^3) 0 cm^3 05/10/20 075 Area % Change 0 05/10/20 075 Drainage Amount None 05/10/20 075 I have personally reviewed the labs and results Test results Laboratory and Additional Data Reviewed: Date: 05/24/2020 No new labs/ results as of last note: 05/10/2020 Update from previous note Current Antibiotics: Doxycycline 100 mg PO BID. Last day 06/02/2020. Previous Antibiotics: Maxipime 2 grams IV every 12 hours Doxycycline 100 mg PO daily until June 03, suppressive treatment Merrem 1,000 mg IV every 12 Hours Rocephin 2 gm IV every 24 Hours until 01/02/2020 Ancef 2,000 mg IV Update from previous note Current Cultures: 05/02/2020 Urine Aerobic Culture: No Growth. Final. 05/02/2020 Blood Culture #2: In Progress; No Growth after 5 days. Final. 05/02/2020 Blood Culture #1: In Progress; No Growth after 5 days. Final. Dressing: Per Dr. Mora Date: 05/10/2020 No new labs/ results as of last note: 05/03/2020 Current Antibiotics: Doxycycline 100 mg PO BID Previous Antibiotics: Maxipime 2 grams IV every 12 hours Doxycycline 100 mg PO daily until June 03, suppressive treatment Merrem 1,000 mg IV every 12 Hours Rocephin 2 gm IV every 24 Hours until 01/02/2020 Ancef 2,000 mg IV Update from previous note Current Cultures: 05/02/2020 Urine Aerobic Culture: No Growth. Final. 05/02/2020 Blood Culture #2: In Progress; No Growth after 5 days. Final. 05/02/2020 Blood Culture #1: In Progress; No Growth after 5 days. Final. Dressing: Per Dr. Mora Date: 05/03/2020 New labs/results as of last note Update from previous note Tmax: 98.8 Urine Output: 700 Stool: not recorded Current Antibiotics: Maxipime 2 gm IV every 12 Hours Previous Antibiotics: Doxycycline 100 mg PO daily until June 03, suppressive treatment Merrem 1,000 mg IV every 12 Hours Rocephin 2 gm IV every 24 Hours until 01/02/2020 Ancef 2,000 mg IV I have personally reviewed the labs and results Test results Laboratory and Additional Data Reviewed: Labs: CBC 05/03/2020 03:54 WBC: 6.78 RBC: 3.46 Hgb: 9.8 Hct: 30.0 Platelets: 139 Lymphocytes Abs: 0.89 Monocytes Abs: 0.91 CMP 05/03/2020 03:54 Glucose: 157 BUN: 29 Creatinine: 1.42 Sodium: 138 Potassium: 4.3 Total Protein: 6.3 Albumin: 3.0 Calcium: 8.1 Alk Phos: 52 AST: 11 ALT: 11 Total Bilirubin: 0.3 CRP 05/03/2020 03:54 92.3 Sed Rate 05/03/2020 03:54 45 U/A 05/02/2020 18:46 Clarity: Cloudy Specific [place]: 1.031 Protein: 100 Ketones: Trace Blood: Small Leukocyte Esterase: Large WBCS: 84 RBCS: 16 Bacteria: Many WBC Clumps: Many Hyaline Casts: 11-20 Amorphous Crystals: Few Mucus: Rare Current Cultures: 05/02/2020 Urine Aerobic Culture: No Growth, Incubation Continued. Preliminary. 05/02/2020 Blood Culture #2: In Progress; No Growth to Date. Preliminary. 05/02/2020 Blood Culture #1: In Progress; No Growth to Date. Preliminary. 04/28/2020 COVID-19, Molecular SARS-CoV-2 RNA: Not Detected. Final. Radiology: Right Ankle X-Ray 05/02/2020 FINDINGS: Fourteen spot fluoroscopic images were obtained in the operating room. Fluoroscopic technique limits osseous and soft tissue detail. Images demonstrate hindfoot and ankle joint arthrodesis with tibial intramedullary otmmy extending through the calcaneus and talus. An additional cannulated lag screw is present on the final images, and a transcalcaneal fixation hardware is present. There is a proximal interlocking screw. A distal fibular osteotomy is present. Alignment appears anatomic. IMPRESSION: Spot fluoroscopic images obtained during right ankle arthrodesis. Please see dictated operative report for full details. Chest X-Ray 04/26/2020 ORDERED Current antibiotic received preop Ancef Previous Antibiotics: Doxycycline 100 mg PO daily until June 03, suppressive treatment Merrem 1,000 mg IV every 12 Hours Rocephin 2 gm IV every 24 Hours until 01/02/2020 Ancef 2,000 mg IV Invalid input(s): CO2 Current Cultures: 04/28/2020 COVID-19, Molecular SARS-CoV-2 RNA: Not Detected. Final. Recent Cultures: 12/28/2019 - Right foot, aerobic culture: Normal [place] after 48 hours. 12/21/2019 - Right foot, aerobic - normal chalino after 48 hours 12/21/2019 - Right foot, anaerobic: No anaerobic growth at 2 days. 12/10/2019 Right Foot Wound Aerobic Culture: Normal [place] After 48 Hours. Final 12/10/2019 Right foot wound, anaerobic culture: No anaerobic growth at 2 days. Final 12/08/2019 Urine Aerobic Culture: No Growth (<1,000 CFU/mL). Final. 12/07/2019 Urine Aerobic Culture on arrival to Nursing Rehab Unit: No Growth (<1,000 CFU/mL). Final. 12/02/2019 Right Foot Tissue Aerobic Culture: Normal [place] After 48 Hours. Final. 12/02/2019 Right Foot Tissue AFB Culture: No Acid Fast Bacilli after 8 weeks. Final. 12/02/2019 Right Foot Tissue Anaerobic Culture: No Anaerobic Growth at 2 Days. Final. 12/02/2019 Right Foot Tissue Fungus Culture: No fungus isolated at 4 weeks. Final. 12/01/2019 Blood Culture #1: No Growth After 5 Days. Final. 12/01/2019 Blood Culture #2: No Growth After 5 Days. Final. 11/30/2019 Right Foot Wound Aerobic Culture: Normal [place] After 48 Hours. Final. 11/21/2019 Left Leg Wound Aerobic Culture: Normal [place] After 24 Hours. Final. 11/20/2019 Right Foot Tissue Aerobic Culture: Moderate Growth Enterobacter cloacae complex, S=Youssef Sensitive. Final. 11/20/2019 Right Foot Tissue Anaerobic Culture: No Anaerobic Growth at 2 Days. Final. 11/20/2019 Right Foot Bone Aerobic Culture: Light Growth Enterobacter Cloacae Complex, S=Youssef Sensitive. Final. 11/20/2019 Right Foot Bone Anaerobic Culture: No Anaerobic Growth at 2 Days. Final. 05/30/2019 Right Foot Tissue Aerobic Culture: Normal [place] After 48 Hours. Final. 05/30/2019 Right Foot Tissue Anaerobic Culture: No Anaerobic Growth at 2 Days. Final. 03/23/2019 Right Foot Wound Aerobic Culture: Heavy Growth Raoultella [place], R=Ampicillin, S=Remainder of panel. 03/09/2019 Right Foot Wound Aerobic Culture: Normal [place] After 48 Hours. Final. 02/09/2019 Right Foot Wound Aerobic Culture: Normal [place] After 48 Hours. Final. 01/19/2019 Right Toe Two Wound Aerobic Culture: Heavy Growth Enterobacter Cloacae Complex, S=Youssef Sensitive. Final. Radiology: Right Ankle X-Ray 05/02/2020 ORDERED Right Tib/Fib X-Ray 05/01/2020 1. Fusion of the tibia, talus, and calcaneus. Alignment is anatomic. There has been resection of the lateral malleolus. Right Ankle X-Ray 05/01/2020 FINDINGS: Images are obtained with the right ankle in a splint which obscures bony detail. There is interval resection of the distal right fibula. Internal fixation of the right ankle is seen with intramedullary tommy seen in the right tibia traversing the tibiotalar joint. Additional smaller surgical screw isseen traversing the tibiotalar joint. Internal fixation of the calcaneus is also seen with metallicrod. Ankle and calcaneal fractures demonstrate normal alignment. Large plantar calcaneal spur is seen. Advanced degenerative changes are seen about the mid foot. Mild diffuse bony demineralization isseen. IMPRESSION: Images are obtained with the right ankle with in a splint which obscures bony detail. Postsurgical changes are seen, as detailed above with normal alignment. Right Tib/Fib X-Ray 05/01/2020 Status post removal of the external fixator with no acute osseous abnormality in the right tibia orfibula or right ankle. Right Foot X-Ray 05/01/2020 1. Prior external fixator replacement. Extensive deformity in the midfoot related to prior surgicalresection or Charcot changes. Continued subluxation between talus and navicular. 2. 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 Chest X-Ray 04/26/2020 ORDERED Right Foot X-Ray 11/20/2019 IMPRESSION: Intraoperative fluoroscopy for localization during right foot and ankle reconstruction and fixation. Please see operative report for details. Left Ankle X-Ray Ordered 11/20/2019 Right Tib/Fib,Right Foot X-Ray 02/16/2020 FINDINGS: There is extensive hardware from an external fixator present. This obscures fine bony detail.A single percutaneous pin is seen entering the plantar aspect of the foot through the calcaneus, talus, and entering the distal tibia. A 2nd slightly larger metallic tommy is seen entering the posterior calcaneus extending into the talus. Degenerative changes are present in the midfoot. There is soft tissue edema. IMPRESSION: Study is limited due to overlying external fixator. No significant change in alignment. NM White Cell Scan Spot Limited 03/08/2017 FINDINGS: A focal area of intense abnormal white blood cell migration is noted central plantar aspect of the right foot corresponding to the area of the wound demonstrated radiographically. No other focus of white blood cell migration abnormality is evident within the right or left foot. IMPRESSION: Focal area of abnormal white blood cell migration at the plantar aspect central right foot may be at the wound itself or may be involving the bone with associated fracture as demonstrated radiographically. Anatomic detail is insufficient for differentiation between the two. Renal U/S 03/07/2017 IMPRESSION: Severe thickening of the urinary bladder wall. This could be due to outlet obstruction with hypertrophy of the wall. If there is no such history, this should be evaluated with cystoscopy. CVPS: Lower Arterial Doppler: not on file Lower Venous Doppler: not on file 2D Echo 11/23/2019 Moderate LV enlargement with LVH. Global systolic dysfunction with segmental features. LVEF 30% Elevated LV filling pressures RV is dilated with severe RV dysfunction Mild mitral annular calcification, mild thickening of the aortic valve without hemodynamically significant valvular disease There is a atrial level right to left shunt identified with saline contrast with free breathing andValsalva most likely via PFO LVEF unchanged from to previous echo from 2017 Surgeries: Please see above for surgical history Procedure: RIGHT ANKLE ARTHRODESIS, SUBTALAR ARTHRODESIS RIGHT ANKLE, Bone [place] Graft From RightFibula, Application of Splint Date: 05/01/2020 Alena Mora DPM Procedure: RIGHT FOOT RECONSTRUCTION WITH APPLICATION OF CIRCULAR STATIC EXTERNAL FIXATION Date: 11/20/2019 Surgeon: Alena Mora DPM Procedure: ARTHROPLASTY 2ND TOE RIGHT FOOT Date: 01/25/2019 Surgeon: Rosa M Robles DPM Pathology: 12/02/2019 A. Soft tissue, Right Foot, excision: Non-specific ulcer. documented in this encounter* Alena Mora DPM - 05/24/2020 11:15 PM EDT Associated Order(s): Wound Debridement Post-Procedure Diagnose(s): Chronic ulcer of right great toe, with unspecified severity (HCC) Wound Care Debridement Timeout: Verbal Consent obtained?: Yes Written Consent obtained?: Yes Consent given by: Patient Immediately prior to procedure a time out was called to verify the correct patient, procedure, equipment, support service tech and site/side marked as required Debridement Procedure: Debridement Performed for Assessment: Right great toe Performed by: Physician Debridement Type: Surgical Pain Control: N/A Level: Skin/Subcutaneous Tissue Post Debridement Measurements: Length (cm): 1 Width (cm): 2 Depth (cm): 0.2 Area (sq cm): 2 Volume (cm3): 0.4 Percent Debrided: 100 Total Area Debrided (sq cm): 2 Tissue and other material debrided: Subcutaneous Devitalized tissue debrided: Biofilm and Necrotic/Eschar Instrument: Curette Bleeding: Minimal Hemostasis Achieved: Pressure Procedural Pain: Insensate Post Procedural Pain: Insensate Response to Treatment: Procedure was tolerated well * Paola Guallpa PSA - 05/24/2020 8:45 AM EDT Patient called today for COVID-19 screening regarding upcoming appointment in wound clinic. Pt did not answer. Message was left stating to call wound clinic if any of these answers are yes. Have you been in close contact with anyone confirmed to have coronavirus/COVID- 19 in the past 14 days? NO Have you traveled out of state or internationally in the past 14 days? NO In the last 24 hours have you had any of the following symptoms? Fever over 100 F NO Cough NO Shortness of breath or difficulty breathing NO Chills or repeated shaking with chills NO Muscle pain, headache, or sore throat NO Any loss of taste or smell NO Diarrhea NO Patient was reminded at this time wound clinic is not allowing visitors for social distancing purposes. Patient was informed of new procedure to gain access to wound clinic. documented in this encounter* Scottie Hall PSA - 06/06/2020 3:12 PM EDT Patient called today for COVID-19 screening regarding upcoming appointment in wound clinic. Have you been in close contact with anyone confirmed to have coronavirus/COVID- 19 in the past 14 days? No Have you traveled out of state or internationally in the past 14 days? No In the last 24 hours have you had any of the following symptoms? Fever over 100 F No Cough No Shortness of breath or difficulty breathing No Chills or repeated shaking with chills No Muscle pain, headache, or sore throat No Any loss of taste or smell No Diarrhea No Patient was reminded at this time wound clinic is not allowing visitors for social distancing purposes. Patient was informed of new procedure to gain access to wound clinic. documented in this encounter* Richelle Chance, GURPREET - 06/07/2020 9:24 AM EDT Nurse wore gloves and mask while taking care of patient. * Lin Justice RN - 06/07/2020 8:33 AM EDT Surgical mask and gloves, and eyewear worn while in exam room with patient. * Maria Isabel Awad MD - 06/07/2020 8:30 AM EDT CONSULT NOTE 05/02/2020 Patient Name: Dyllan Huertas Admit Date: MR #: [id number] : 1960 Physicians: Rohit Aguilar MD (Family); No ref. 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 antibiotic Will need to watch very closely for any recurrence of infection and treat aggressively if indicatedin the future May 10 New blister of the right great toe Postop wound of the right ankle from surgery in May 01, 2020 May 24 Right foot postop wound is clean no drainage no cellulitis Enterobacter and gram-negative June 07 Postop wound is healed up Right great toe superficial ulceration no evidence of cellulitis right now Last CRP 7 and sed rate 37 Recommend June 07 Doxycycline decreased to 100 mg p.o. per day We will go with suppressive treatment although wait till October 2020 which will be 6 months postopand if we need to go longer will go up to 1 year total Local dressings per Dr. Mora I will see him in [address] Mora I have discussed this with the patient as well as podiatry May 24 Doxycycline 100 g p.o. twice daily continue for now till June 18 After that we will cut it down to 1 tablet of doxycycline per day for long-term suppressive treatment may need to go up to November 03, 2020 to make it 6 months postop I looked at the films with Dr. Mora from last time Cast per Dr. Mora I will see him in 2 weeks X-ray per Dr. Mora today Labs will be done today here May 10 Cast was changed by podiatry today incision looks good without any evidence of secondary infection Doxycycline 100 mg p.o. twice a day continued for total of 1 month he has enough Revisit 2 weeks May 03 Discontinue the order for PICC line Discontinue IV cefepime P.o. doxycycline 100 mg twice daily for 30 days Follow-up in the wound clinic on Wednesdays with myself and Dr. Mora Any dressing orders will be per I have discussed with the patient as well as hospitalist May 02 PICC line placement Cefepime 2 g IV every 12 Follow-up current OR cultures however with the extent of infection he had before it would be prudent to give prolonged IV for now hardware would be at risk for infection CBC CMP sed rate CRP blood cultures x2 half an hour apart [employer]NA[employer]EMENT to be sent today I have discussed with the hospitalist Chief Complaint/Reason for Visit: I am seeing this patient at the request of Dr. Emilie MD. I have reviewed the current hospital record, available laboratory, cardiology and imaging studies as well as available out patient records. History of Present Illness: Admission H&P by Ramírez Damico CNP on 05/01/2020: Dyllan Huertas is a 59 y.o. male with history of IDDM and neuropathy presents for status post right ankle arthrodesis. Dr. Mora performed the procedure today. Patient laid on bed without complaint. Patient is afebrile, vitals are stable. Patient will be on antibiotics and continue home meds. 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 doxycycline suppressive treatment for Enterobacter cloaca infection he also received Rocephinat one point eventually on May 01, 2020 patient underwent extensive surgery to the 7-hour surgery by Dr. Mora which was right foot arthrodesis subtalar arthrodesis right ankle which is corrective surgery for his Charcot and infectious disease consult for further help with antibiotic management Past medical surgical social family history nobody with boils all his details of previous history is in the notes He was a long-term suppressive treatment with doxycycline He is a chronic Schulte catheter because of nonweightbearing He had done home IV antibiotics in the past The Enterobacter cloaca he was [place] Allergy Information: I have reviewed the patient's allergies. Patient has no known allergies. Current Scheduled Meds: PMH/PSH/SH/ reviewed, no change except: He is in the hospital receiving intravenous antibiotics May [address] Mora she said the approach she took for the surgery was a totally different area than the previous infected area intraoperatively she did not find any evidence of infection the bone was hard Intra-Op cultures were not done at this point based on her information we maynot need prolonged IV antibiotics at the midline order was discontinued and he would continue to maintain p.o. antibiotic to make sure skin soft tissue healing occurs and we will need to follow him in the wound clinic on a regular basis watch closely for any infection Patient also has his brother's today Denies any pain in the right ankle Review of Systems: All systems were reviewed and negative except: No fever chills nausea vomiting diarrhea Medications Reviewed. Chart Reviewed Physical Examination: BP (!) 159/77 Pulse (!) 59 Temp 97.8 F (36.6 C) (Infrared) Resp 18 SpO2 98% Exam Findings: Constitutional: Awake alert answers all question HENT: Pupils reactive head: No oral candidiasis Eyes: No icterus Neck: Supple Cardiovascular: Heart S1-S2 2 by systolic murmur present no S3 Murmur Pulmonary/Chest: Clear Abdominal: Soft Musculoskeletal: No calf tenderness on the right leg he has an Zechariah bandage postop Neurological: Right great toe tip there is a blackish discoloration which will need to watch closely but he does have sensations difficult to move toes in his postop brace Skin no redness or cellulitis n prior to surgery by Dr. Abby Schulte: He is on long-term Schulte catheter because of nonweightbearing is being followed by Dr. Izquierdo he still has a Schulte may come out in July IV: other: He is now status post right ankle arthrodesis by Dr. Mora on 05/01/2020 postop Zechariah bandage in place is able to recall the toes some toes are not discolored they look normal May 10 incision looks good per podiatry at the time of changing the cast May 24 incision looks good. The right great toe eschar is also with good bleeding June 07 postop wound healed up completely right great toe ulcer superficial without cellulitis Wound (Outpatient Only) 03/31/19 Foot Anterior;Right;Plantar (Active) Wound Image 04/26/20 1300 Wound Length (cm) 0 cm 04/26/20 1300 Wound Width (cm) 0 cm 04/26/20 1300 Wound Depth (cm) 0 cm 04/26/20 1300 Wound Surface Area (cm^2) 0 cm^2 04/26/20 1300 Wound Volume (cm^3) 0 cm^3 04/26/20 1300 Area % Change -100 04/26/20 1300 Volume % Change 0 04/26/20 1300 Tunneling Maximum Distance (cm) 0 cm 04/26/20 1300 Tunneling Position (o'clock) 0 04/26/20 1300 Undermining Maximum Distance (cm) 1 0 cm 04/26/20 1300 Undermining Starting Position (o'clock) 1 0 04/26/20 1300 Undermining Ending Position (o'clock) 1 0 04/26/20 1300 Wound Encounter Subsequent 04/26/20 1300 Wound Progress Improving 04/26/20 1300 Non-staged Wound Description Partial thickness 02/09/20 0700 Drainage Amount None 04/26/20 1300 Drainage Description Yellow 02/09/20 0700 Odor None 04/26/20 1300 Wound Margin Attached to wound base 03/01/20 0700 Adherent Yellow Slough % None 04/26/20 1300 Moist Yellow Slough % None 04/26/20 1300 Dry Black Eschar % None 04/26/20 1300 Moist Black Eschar % None 04/26/20 1300 Epithelialization % 76-100% 04/26/20 1300 Granulation % None 04/26/20 1300 Exposed Structure None 04/26/20 1300 Wound Bed Characteristics Clean;Dry;Intact 04/26/20 1300 Wound Closure Sutures 12/28/19 0815 Angeli-wound Assessment Temperature WNL 04/26/20 1300 Treatments Not Applicable 04/26/20 1300 Hemostasis Not applicable 04/26/20 1300 Cleansed Soap and water 04/26/20 1300 Primary Dressing Collagen;Antibiotic ointment / cream 02/09/20 0822 Secondary Dressing Gauze pad;Gauze roll 02/09/20 0822 Compression Dressing Tubilar eleastic bandage 04/26/20 1300 Wound 05/01/20 Surgical Wound Foot Right (Active) Wound Image 05/24/20 0858 Wound 05/10/20 Great Toe Anterior;Right (Active) Wound Image 05/24/20 0857 Wound Length (cm) 1.7 cm 05/10/20 0759 Wound Width (cm) 4 cm 05/10/20 0759 Wound Depth (cm) 0 cm 05/10/20 0759 Wound Surface Area (cm^2) 6.8 cm^2 05/10/20 0759 Wound Volume (cm^3) 0 cm^3 05/10/20 0759 Area % Change 0 05/10/20 0759 Drainage Amount None 05/10/20 0759 I have personally reviewed the labs and results Test results Laboratory and Additional Data Reviewed: Date: 06/07/2020 New labs/ results as of last note: 05/24/2020 Labs and other data reviewed: CBC Auto Differential Component Ref Range & Units 12d ago (05/24/20) 1mo ago (05/03/20) 1mo ago (05/02/20) 1mo ago (05/01/20) 1mo ago (04/26/20) 3mo ago (02/09/20) 5mo ago (12/28/19) WBC 4.50 - 11.00 K/mcL 4.09Low 6.78 8.37 6.59 6.01 4.66 RBC 4.50 - 5.90 M/mcL 3.80Low 3.46Low 3.58Low 4.91 4.53 4.42Low Hemoglobin 13.5 - 17.5 g/dL 10.8Low 9.8Low 10.3Low 12.6Low 14.0 12.1Low 11.6Low Hematocrit 41.0 - 53.0 % 32.4Low 30.0Low 30.8Low 37.8Low 42.4 38.2Low 38.0Low MCV 80.0 - 100.0 fL 85.3 86.7 86.0 86.4 84.3 86.0 MCH 26.0 - 34.0 pg 28.4 28.3 28.8 28.5 26.7 26.2 MCHC 31.0 - 37.0 g/dL 33.3 32.7 33.4 33.0 31.7 30.5Low Platelets 150 - 400 K/mcL 169 139Low 163 230 196 182 Comprehensive Metabolic Panel Component Ref Range & Units 12d ago (05/24/20) 1mo ago (05/03/20) 1mo ago (05/02/20) 1mo ago (05/01/20) 3mo ago (02/09/20) 5mo ago (12/28/19) 5mo ago (12/18/19) Sodium 135 - 145 mmol/L 141 138 140 142 142 142 142 Potassium 3.5 - 5.1 mmol/L 4.2 4.3 5.1 4.4 4.3 4.3 4.5 Chloride 98 - 108 mmol/L 110High 106 106 110High 109High 109High 106 Bicarbonate 21 - 32 mmol/L 26 27 28 27 28 31 25 Anion Gap 10 - 20 mmol/L 9Low 9Low 11 9Low 9Low 6Low 16 Glucose 65 - 99 mg/dL 171High 157High 262High 114High 205High 135High 82 BUN 8 - 25 mg/dL 17 29High 22 16 22 18 23 Creatinine 0.50 - 1.30 mg/dL 0.84 1.42High 1.51High 0.94 0.94 0.71 1.04 eGFR >=60 mL/min/1.73 m2 97 54Low 51Low 90 90 104 79 BUN/Creatinine Ratio 10.0 - 20.0 20.2High 20.4High 14.6 17.0 23.4High 25.4High 22.1High Total Protein 6.0 - 8.0 g/dL 6.6 6.3 6.9 7.0 7.2 Albumin 3.2 - 5.2 g/dL 3.2 3.0Low 3.5 3.1Low 3.0Low Calcium 8.4 - 10.2 mg/dL 9.3 8.1Low 8.3Low 9.1 9.2 9.2 9.6 Alkaline Phosphatase 40 - 150 U/L 95 52 72 93 94 AST 0 - 45 U/L 14 11 14 16 20 Total Bilirubin 0.0 - 1.3 mg/dL 0.3 0.3 0.3 0.4 0.3 ALT 14 - 65 U/L 21 11Low 19 19 27 CRP, Inflammation Component Ref Range & Units 12d ago (05/24/20) 1mo ago (05/03/20) 3mo ago (02/09/20) 5mo ago (12/28/19) 5mo ago (12/18/19) 5mo ago (12/12/19) 6mo ago (12/05/19) CRP(Inflammation) <=10.0 mg/L 7.0 92.3High 5.7 6.4 18.7High 52.4High 85.3High Sedimentation Rate Order: [id number] Status: Final result Visible to patient: No (not released) Next appt: 06/07/2020 at 08:30 AM in Wound Care (Maria Isabel Awad MD) Dx: Elevated C-reactive protein (CRP); El... Component Ref Range & Units 12d ago (05/24/20) 1mo ago (05/03/20) 1mo ago (04/26/20) 3mo ago (02/09/20) 5mo ago (12/28/19) 5mo ago (12/18/19) 5mo ago (12/12/19) Sed Rate 0 - 20 mm/hr 36High 45High 23High 24High 33High 72High 91High 05/24/2020 X-Ray Right ankle IMPRESSION: Postsurgical changes without acute osseous abnormality. 05/24/2020 X-Ray Right Foot IMPRESSION: Postsurgical changes without acute osseous abnormality. Update from previous note Current Antibiotics: Doxycycline 100 mg PO BID through 06/18/2020, then one tablet daily for 6 months. Previous Antibiotics: Maxipime 2 grams IV every 12 hours Doxycycline 100 mg PO daily until June 03, suppressive treatment Merrem 1,000 mg IV every 12 Hours Rocephin 2 gm IV every 24 Hours until 01/02/2020 Ancef 2,000 mg IV Update from previous note Current Cultures: 05/02/2020 Urine Aerobic Culture: No Growth. Final. 05/02/2020 Blood Culture #2: In Progress; No Growth after 5 days. Final. 05/02/2020 Blood Culture #1: In Progress; No Growth after 5 days. Final. Dressings: per Dr. Mora Right great toe: Betadine, DSD Right lower extremity: Cast Date: 05/24/2020 No new labs/ results as of last note: 05/10/2020 Update from previous note Current Antibiotics: Doxycycline 100 mg PO BID. Last day 06/02/2020. Previous Antibiotics: Maxipime 2 grams IV every 12 hours Doxycycline 100 mg PO daily until June 03, suppressive treatment Merrem 1,000 mg IV every 12 Hours Rocephin 2 gm IV every 24 Hours until 01/02/2020 Ancef 2,000 mg IV Update from previous note Current Cultures: 05/02/2020 Urine Aerobic Culture: No Growth. Final. 05/02/2020 Blood Culture #2: In Progress; No Growth after 5 days. Final. 05/02/2020 Blood Culture #1: In Progress; No Growth after 5 days. Final. Dressing: Per Dr. Mora Date: 05/10/2020 No new labs/ results as of last note: 05/03/2020 Current Antibiotics: Doxycycline 100 mg PO BID Previous Antibiotics: Maxipime 2 grams IV every 12 hours Doxycycline 100 mg PO daily until June 03, suppressive treatment Merrem 1,000 mg IV every 12 Hours Rocephin 2 gm IV every 24 Hours until 01/02/2020 Ancef 2,000 mg IV Update from previous note Current Cultures: 05/02/2020 Urine Aerobic Culture: No Growth. Final. 05/02/2020 Blood Culture #2: In Progress; No Growth after 5 days. Final. 05/02/2020 Blood Culture #1: In Progress; No Growth after 5 days. Final. Dressing: Per Dr. Mora Date: 05/03/2020 New labs/results as of last note Update from previous note Tmax: 98.8 Urine Output: 700 Stool: not recorded Current Antibiotics: Maxipime 2 gm IV every 12 Hours Previous Antibiotics: Doxycycline 100 mg PO daily until June 03, suppressive treatment Merrem 1,000 mg IV every 12 Hours Rocephin 2 gm IV every 24 Hours until 01/02/2020 Ancef 2,000 mg IV I have personally reviewed the labs and results Test results Laboratory and Additional Data Reviewed: Labs: CBC 05/03/2020 03:54 WBC: 6.78 RBC: 3.46 Hgb: 9.8 Hct: 30.0 Platelets: 139 Lymphocytes Abs: 0.89 Monocytes Abs: 0.91 CMP 05/03/2020 03:54 Glucose: 157 BUN: 29 Creatinine: 1.42 Sodium: 138 Potassium: 4.3 Total Protein: 6.3 Albumin: 3.0 Calcium: 8.1 Alk Phos: 52 AST: 11 ALT: 11 Total Bilirubin: 0.3 CRP 05/03/2020 03:54 92.3 Sed Rate 05/03/2020 03:54 45 U/A 05/02/2020 18:46 Clarity: Cloudy Specific [place]: 1.031 Protein: 100 Ketones: Trace Blood: Small Leukocyte Esterase: Large WBCS: 84 RBCS: 16 Bacteria: Many WBC Clumps: Many Hyaline Casts: 11-20 Amorphous Crystals: Few Mucus: Rare Current Cultures: 05/02/2020 Urine Aerobic Culture: No Growth, Incubation Continued. Preliminary. 05/02/2020 Blood Culture #2: In Progress; No Growth to Date. Preliminary. 05/02/2020 Blood Culture #1: In Progress; No Growth to Date. Preliminary. 04/28/2020 COVID-19, Molecular SARS-CoV-2 RNA: Not Detected. Final. Radiology: Right Ankle X-Ray 05/02/2020 FINDINGS: Fourteen spot fluoroscopic images were obtained in the operating room. Fluoroscopic technique limits osseous and soft tissue detail. Images demonstrate hindfoot and ankle joint arthrodesis with tibial intramedullary tommy extending through the calcaneus and talus. An additional cannulated lag screw is present on the final images, and a transcalcaneal fixation hardware is present. There is a proximal interlocking screw. A distal fibular osteotomy is present. Alignment appears anatomic. IMPRESSION: Spot fluoroscopic images obtained during right ankle arthrodesis. Please see dictated operative report for full details. Chest X-Ray 04/26/2020 ORDERED Current antibiotic received preop Ancef Previous Antibiotics: Doxycycline 100 mg PO daily until June 03, suppressive treatment Merrem 1,000 mg IV every 12 Hours Rocephin 2 gm IV every 24 Hours until 01/02/2020 Ancef 2,000 mg IV Invalid input(s): CO2 Current Cultures: 04/28/2020 COVID-19, Molecular SARS-CoV-2 RNA: Not Detected. Final. Recent Cultures: 12/28/2019 - Right foot, aerobic culture: Normal [place] after 48 hours. 12/21/2019 - Right foot, aerobic - normal [place] after 48 hours 12/21/2019 - Right foot, anaerobic: No anaerobic growth at 2 days. 12/10/2019 Right Foot Wound Aerobic Culture: Normal [place] After 48 Hours. Final 12/10/2019 Right foot wound, anaerobic culture: No anaerobic growth at 2 days. Final 12/08/2019 Urine Aerobic Culture: No Growth (<1,000 CFU/mL). Final. 12/07/2019 Urine Aerobic Culture on arrival to Nursing Rehab Unit: No Growth (<1,000 CFU/mL). Final. 12/02/2019 Right Foot Tissue Aerobic Culture: Normal [place] After 48 Hours. Final. 12/02/2019 Right Foot Tissue AFB Culture: No Acid Fast Bacilli after 8 weeks. Final. 12/02/2019 Right Foot Tissue Anaerobic Culture: No Anaerobic Growth at 2 Days. Final. 12/02/2019 Right Foot Tissue Fungus Culture: No fungus isolated at 4 weeks. Final. 12/01/2019 Blood Culture #1: No Growth After 5 Days. Final. 12/01/2019 Blood Culture #2: No Growth After 5 Days. Final. 11/30/2019 Right Foot Wound Aerobic Culture: Normal [place] After 48 Hours. Final. 11/21/2019 Left Leg Wound Aerobic Culture: Normal [place] After 24 Hours. Final. 11/20/2019 Right Foot Tissue Aerobic Culture: Moderate Growth Enterobacter cloacae complex, S=Youssef Sensitive. Final. 11/20/2019 Right Foot Tissue Anaerobic Culture: No Anaerobic Growth at 2 Days. Final. 11/20/2019 Right Foot Bone Aerobic Culture: Light Growth Enterobacter Cloacae Complex, S=Youssef Sensitive. Final. 11/20/2019 Right Foot Bone Anaerobic Culture: No Anaerobic Growth at 2 Days. Final. 05/30/2019 Right Foot Tissue Aerobic Culture: Normal [place] After 48 Hours. Final. 05/30/2019 Right Foot Tissue Anaerobic Culture: No Anaerobic Growth at 2 Days. Final. 03/23/2019 Right Foot Wound Aerobic Culture: Heavy Growth Raoultella [place], R=Ampicillin, S=Remainder of panel. 03/09/2019 Right Foot Wound Aerobic Culture: Normal [place] After 48 Hours. Final. 02/09/2019 Right Foot Wound Aerobic Culture: Normal [place] After 48 Hours. Final. 01/19/2019 Right Toe Two Wound Aerobic Culture: Heavy Growth Enterobacter Cloacae Complex, S=Youssef Sensitive. Final. Radiology: Right Ankle X-Ray 05/02/2020 ORDERED Right Tib/Fib X-Ray 05/01/2020 1. Fusion of the tibia, talus, and calcaneus. Alignment is anatomic. There has been resection of the lateral malleolus. Right Ankle X-Ray 05/01/2020 FINDINGS: Images are obtained with the right ankle in a splint which obscures bony detail. There is interval resection of the distal right fibula. Internal fixation of the right ankle is seen with intramedullary tommy seen in the right tibia traversing the tibiotalar joint. Additional smaller surgical screw isseen traversing the tibiotalar joint. Internal fixation of the calcaneus is also seen with metallicrod. Ankle and calcaneal fractures demonstrate normal alignment. Large plantar calcaneal spur is seen. Advanced degenerative changes are seen about the mid foot. Mild diffuse bony demineralization isseen. IMPRESSION: Images are obtained with the right ankle with in a splint which obscures bony detail. Postsurgical changes are seen, as detailed above with normal alignment. Right Tib/Fib X-Ray 05/01/2020 Status post removal of the external fixator with no acute osseous abnormality in the right tibia orfibula or right ankle. Right Foot X-Ray 05/01/2020 1. Prior external fixator replacement. Extensive deformity in the midfoot related to prior surgicalresection or Charcot changes. Continued subluxation between talus and navicular. 2. 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 Chest X-Ray 04/26/2020 ORDERED Right Foot X-Ray 11/20/2019 IMPRESSION: Intraoperative fluoroscopy for localization during right foot and ankle reconstruction and fixation. Please see operative report for details. Left Ankle X-Ray Ordered 11/20/2019 Right Tib/Fib,Right Foot X-Ray 02/16/2020 FINDINGS: There is extensive hardware from an external fixator present. This obscures fine bony detail.A single percutaneous pin is seen entering the plantar aspect of the foot through the calcaneus, talus, and entering the distal tibia. A 2nd slightly larger metallic tommy is seen entering the posterior calcaneus extending into the talus. Degenerative changes are present in the midfoot. There is soft tissue edema. IMPRESSION: Study is limited due to overlying external fixator. No significant change in alignment. NM White Cell Scan Spot Limited 03/08/2017 FINDINGS: A focal area of intense abnormal white blood cell migration is noted central plantar aspect of the right foot corresponding to the area of the wound demonstrated radiographically. No other focus of white blood cell migration abnormality is evident within the right or left foot. IMPRESSION: Focal area of abnormal white blood cell migration at the plantar aspect central right foot may be at the wound itself or may be involving the bone with associated fracture as demonstrated radiographically. Anatomic detail is insufficient for differentiation between the two. Renal U/S 03/07/2017 IMPRESSION: Severe thickening of the urinary bladder wall. This could be due to outlet obstruction with hypertrophy of the wall. If there is no such history, this should be evaluated with cystoscopy. CVPS: Lower Arterial Doppler: not on file Lower Venous Doppler: not on file 2D Echo 11/23/2019 Moderate LV enlargement with LVH. Global systolic dysfunction with segmental features. LVEF 30% Elevated LV filling pressures RV is dilated with severe RV dysfunction Mild mitral annular calcification, mild thickening of the aortic valve without hemodynamically significant valvular disease There is a atrial level right to left shunt identified with saline contrast with free breathing andValsalva most likely via PFO LVEF unchanged from to previous echo from 2017 Surgeries: Please see above for surgical history Procedure: RIGHT ANKLE ARTHRODESIS, SUBTALAR ARTHRODESIS RIGHT ANKLE, Bone [place] Graft From RightFibula, Application of Splint Date: 05/01/2020 Alena Mora DPM Procedure: RIGHT FOOT RECONSTRUCTION WITH APPLICATION OF CIRCULAR STATIC EXTERNAL FIXATION Date: 11/20/2019 Surgeon: Alena Mora DPM Procedure: ARTHROPLASTY 2ND TOE RIGHT FOOT Date: 01/25/2019 Surgeon: Rosa M Robles DPM Pathology: 12/02/2019 A. Soft tissue, Right Foot, excision: Non-specific ulcer. * Phoebe Duncan RN - 06/07/2020 8:30 AM EDT Date: 06/07/2020 New labs/ results as of last note: 05/24/2020 Labs and other data reviewed: CBC Auto Differential Component Ref Range & Units 12d ago (05/24/20) 1mo ago (05/03/20) 1mo ago (05/02/20) 1mo ago (05/01/20) 1mo ago (04/26/20) 3mo ago (02/09/20) 5mo ago (12/28/19) WBC 4.50 - 11.00 K/mcL 4.09Low 6.78 8.37 6.59 6.01 4.66 RBC 4.50 - 5.90 M/mcL 3.80Low 3.46Low 3.58Low 4.91 4.53 4.42Low Hemoglobin 13.5 - 17.5 g/dL 10.8Low 9.8Low 10.3Low 12.6Low 14.0 12.1Low 11.6Low Hematocrit 41.0 - 53.0 % 32.4Low 30.0Low 30.8Low 37.8Low 42.4 38.2Low 38.0Low MCV 80.0 - 100.0 fL 85.3 86.7 86.0 86.4 84.3 86.0 MCH 26.0 - 34.0 pg 28.4 28.3 28.8 28.5 26.7 26.2 MCHC 31.0 - 37.0 g/dL 33.3 32.7 33.4 33.0 31.7 30.5Low Platelets 150 - 400 K/mcL 169 139Low 163 230 196 182 Comprehensive Metabolic Panel Component Ref Range & Units 12d ago (05/24/20) 1mo ago (05/03/20) 1mo ago (05/02/20) 1mo ago (05/01/20) 3mo ago (02/09/20) 5mo ago (12/28/19) 5mo ago (12/18/19) Sodium 135 - 145 mmol/L 141 138 140 142 142 142 142 Potassium 3.5 - 5.1 mmol/L 4.2 4.3 5.1 4.4 4.3 4.3 4.5 Chloride 98 - 108 mmol/L 110High 106 106 110High 109High 109High 106 Bicarbonate 21 - 32 mmol/L 26 27 28 27 28 31 25 Anion Gap 10 - 20 mmol/L 9Low 9Low 11 9Low 9Low 6Low 16 Glucose 65 - 99 mg/dL 171High 157High 262High 114High 205High 135High 82 BUN 8 - 25 mg/dL 17 29High 22 16 22 18 23 Creatinine 0.50 - 1.30 mg/dL 0.84 1.42High 1.51High 0.94 0.94 0.71 1.04 eGFR >=60 mL/min/1.73 m2 97 54Low 51Low 90 90 104 79 BUN/Creatinine Ratio 10.0 - 20.0 20.2High 20.4High 14.6 17.0 23.4High 25.4High 22.1High Total Protein 6.0 - 8.0 g/dL 6.6 6.3 6.9 7.0 7.2 Albumin 3.2 - 5.2 g/dL 3.2 3.0Low 3.5 3.1Low 3.0Low Calcium 8.4 - 10.2 mg/dL 9.3 8.1Low 8.3Low 9.1 9.2 9.2 9.6 Alkaline Phosphatase 40 - 150 U/L 95 52 72 93 94 AST 0 - 45 U/L 14 11 14 16 20 Total Bilirubin 0.0 - 1.3 mg/dL 0.3 0.3 0.3 0.4 0.3 ALT 14 - 65 U/L 21 11Low 19 19 27 CRP, Inflammation Component Ref Range & Units 12d ago (05/24/20) 1mo ago (05/03/20) 3mo ago (02/09/20) 5mo ago (12/28/19) 5mo ago (12/18/19) 5mo ago (12/12/19) 6mo ago (12/05/19) CRP(Inflammation) <=10.0 mg/L 7.0 92.3High 5.7 6.4 18.7High 52.4High 85.3High Sedimentation Rate Order: [id number] Status: Final result Visible to patient: No (not released) Next appt: 06/07/2020 at 08:30 AM in Wound Care (Maria Isabel Awad MD) Dx: Elevated C-reactive protein (CRP); El... Component Ref Range & Units 12d ago (05/24/20) 1mo ago (05/03/20) 1mo ago (04/26/20) 3mo ago (02/09/20) 5mo ago (12/28/19) 5mo ago (12/18/19) 5mo ago (12/12/19) Sed Rate 0 - 20 mm/hr 36High 45High 23High 24High 33High 72High 91High 05/24/2020 X-Ray Right ankle IMPRESSION: Postsurgical changes without acute osseous abnormality. 05/24/2020 X-Ray Right Foot IMPRESSION: Postsurgical changes without acute osseous abnormality. Update from previous note Current Antibiotics: Doxycycline 100 mg PO BID through 06/18/2020, then one tablet daily for 6 months. Previous Antibiotics: Maxipime 2 grams IV every 12 hours Doxycycline 100 mg PO daily until June 03, suppressive treatment Merrem 1,000 mg IV every 12 Hours Rocephin 2 gm IV every 24 Hours until 01/02/2020 Ancef 2,000 mg IV Update from previous note Current Cultures: 05/02/2020 Urine Aerobic Culture: No Growth. Final. 05/02/2020 Blood Culture #2: In Progress; No Growth after 5 days. Final. 05/02/2020 Blood Culture #1: In Progress; No Growth after 5 days. Final. Dressings: per Dr. Mora Right great toe: Betadine, DSD Right lower extremity: Cast documented in this encounter* Alena Mora DPM - 06/07/2020 11:00 PM EDT Associated Order(s): Wound Debridement Post-Procedure Diagnose(s): Chronic ulcer of right great toe, with unspecified severity (HCC); 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) Debridement Consent obtained? verbal Consent given by: patient Risks discussed? procedural risks discussed Immediately prior to the procedure a time out was called Performed by: physician Debridement type: surgical Level of debridement: subcutaneous tissue Post-debridement measurements Length (cm): 0.5 Width (cm): 1 Depth (cm): 0.2 Percent debrided: 100% Surface Area (cm^2): 0.5 Area debrided (cm^2): 0.5 Volume (cm^3): 0.1 Tissue and other material debrided: subcutaneous tissue Devitalized tissue debrided: biofilm, callus and fibrin Instrument(s) utilized: curette Bleeding: none Hemostasis obtained with: pressure Procedural pain (0-10): insensate Post-procedural pain: insensate Response to treatment: procedure was tolerated well documented in this encounter* Alena Mora DPM - 06/21/2020 8:58 AM EDT Associated Order(s): Wound Debridement Post-Procedure Diagnose(s): Chronic ulcer of right great toe, with unspecified severity (HCC) Subjective: Patient is a pleasant 59-year-old male who presents to the wound care center 7.5 weeks status post ankle joint and subtalar joint arthrodesis via intramedullary nail fixation in treatment for his Charcot neuroarthropathy. Patient states that he is doing well. He has been WB in the cam boot with hiswalker. Denies any pain to his right leg. Patient reports that his right great toe blister/necroticulcer is improving. Denies any redness, swelling, or drainage. No other pedal complaints at this time.Denies fevers, chills, nausea, vomiting, chest pain, shortness of breath, or any other constitutional symptoms. Objective: Vascular: DP and PT pulses are palpable. Cap refill time is brisk to distal digits. Skin temperature is warm to warm from proximal tibial tuberosity to distal digits. Neuro: Gross sensation is intact. Protective sensation is absent. Derm: Surgical incision sites are well healed. No angeli-incisional erythema, edema, dehiscence or any acute signs of infection. The right great toe has a full thickness ulceration measuring 2.0 x 0.8 x 0.2 cm. Wound bed is fibrogranular. No surrounding erythema, edema, drainage, or any acute signs of infection. Musculoskeletal: Compartments are soft and compressible. No calf pain. Assessment: 7.5 weeks status post ankle and subtalar joint arthrodesis via IM nail fixation, right lower extremity (Dr. Mora) doing well Full thickness ulceration right great toe - improving Plan: Patient was seen and evaluated. Discussed all clinical and radiographic findings. New radiographs obtained showing interval osseous consolidation across ankle and subtalar joints. Hardware is intact without any signs of failure or lucency. All incisions are clean and dry without any sign of infection. Patient has a full thickness ulceration at the right great toe secondary to a prior blister/deep tissue injury that is improving. This is a separate identifiable problem from his surgery. The black eschar was in need of debridement to remove noviable soft tissue. See procedure below. Following the procedure, kb was applied to right great toe; light sterile dressing and zechariah bandage to right leg Patient is to WBAT in the cam boot with the use his walker. Follow-up in the wound care center in 2 weeks Alena Mora DPM, MSBS Podiatric Physician and Surgeon Debridement Consent obtained? verbal Consent given by: patient Risks discussed? procedural risks discussed Immediately prior to the procedure a time out was called Performed by: physician Debridement type: surgical Level of debridement: subcutaneous tissue Pain control: none Post-debridement measurements Length (cm): 2 Width (cm): 0.8 Depth (cm): 0.2 Percent debrided: 100% Surface Area (cm^2): 1.6 Area debrided (cm^2): 1.6 Volume (cm^3): 0.32 Tissue and other material debrided: subcutaneous tissue Devitalized tissue debrided: biofilm, callus and slough Instrument(s) utilized: curette Bleeding: small Hemostasis obtained with: pressure Procedural pain (0-10): insensate Post-procedural pain: insensate Response to treatment: procedure was tolerated well * Gloria Mcdowell RN - 06/21/2020 8:53 AM EDT This RN wore a mask and gloves while doing patient care. * Paola Guallpa PSA - 06/21/2020 8:00 AM EDT Patient called today for COVID-19 screening regarding upcoming appointment in wound clinic. Have you been in close contact with anyone confirmed to have coronavirus/COVID- 19 in the past 14 days? No Have you traveled out of state or internationally in the past 14 days? No In the last 24 hours have you had any of the following symptoms? Fever over 100 F No Cough No Shortness of breath or difficulty breathing No Chills or repeated shaking with chills No Muscle pain, headache, or sore throat No Any loss of taste or smell No Diarrhea no Patient was reminded at this time wound clinic is not allowing visitors for social distancing purposes. Patient was informed of new procedure to gain access to wound clinic. documented in this encounter* Scottie Hall PSA - 07/04/2020 9:40 AM EDT Patient called today for COVID-19 screening regarding upcoming appointment in wound clinic. Have you been in close contact with anyone confirmed to have coronavirus/COVID- 19 in the past 14 days? No Have you traveled out of state or internationally in the past 14 days? No In the last 24 hours have you had any of the following symptoms? Fever over 100 F No Cough No Shortness of breath or difficulty breathing No Chills or repeated shaking with chills No Muscle pain, headache, or sore throat No Any loss of taste or smell No Diarrhea No Patient was reminded at this time wound clinic is not allowing visitors for social distancing purposes. Patient was informed of new procedure to gain access to wound clinic. documented in this encounter* Alena Mora, KAYM - 07/05/2020 9:31 AM EDT Associated Order(s): Wound Debridement Post-Procedure Diagnose(s): Chronic ulcer of right great toe, with unspecified severity (HCC); Charcot foot due to diabetes mellitus (HCC) Subjective: Patient is a pleasant 59-year-old male who presents to the wound care center 9.5 weeks status post ankle joint and subtalar joint arthrodesis via intramedullary nail fixation in treatment for his Charcot neuroarthropathy. Patient states that he is doing well. He has been WB in the cam boot with hiswalker. Denies any pain to his right leg. Patient reports that his right great toe blister/necroticulcer is improving. Denies any redness, swelling, or drainage. No other pedal complaints at this time.Denies fevers, chills, nausea, vomiting, chest pain, shortness of breath, or any other constitutional symptoms. Objective: Vascular: DP and PT pulses are palpable. Cap refill time is brisk to distal digits. Skin temperature is warm to warm from proximal tibial tuberosity to distal digits. Neuro: Gross sensation is intact. Protective sensation is absent. Derm: Surgical incision sites are well healed. No angeli-incisional erythema, edema, dehiscence or any acute signs of infection. The right great toe has a full thickness ulceration measuring 1.5 x 0.5 x 0.2 cm. Wound bed is fibrogranular. No surrounding erythema, edema, drainage, or any acute signs of infection. Musculoskeletal: Compartments are soft and compressible. No calf pain. Assessment: 9.5 weeks status post ankle and subtalar joint arthrodesis via IM nail fixation, right lower extremity (Dr. Mora) doing well Full thickness ulceration right great toe - improving Plan: Patient was seen and evaluated. Discussed all clinical and radiographic findings. New radiographs obtained showing interval osseous consolidation across ankle and subtalar joints. Hardware is intact without any signs of failure or lucency. All incisions are clean and dry without any sign of infection. Patient has a full thickness ulceration at the right great toe secondary to a prior blister/deep tissue injury that is improving. This is a separate identifiable problem from his surgery. The black eschar was in need of debridement to remove noviable soft tissue. See procedure below. Following the procedure, kb was applied to right great toe; light sterile dressing and zechariah bandage to right leg Patient is to WBAT in the cam boot with the use his walker and may transition out as to discontinuehis walker. Follow-up in the wound care center in 1 week Alena Mora DPM, MSBS Podiatric Physician and Surgeon Debridement Consent obtained? verbal Consent given by: patient Risks discussed? procedural risks discussed Performed by: physician Debridement type: surgical Level of debridement: subcutaneous tissue Pain control: none Post-debridement measurements Length (cm): 1.5 Width (cm): 0.5 Depth (cm): 0.2 Percent debrided: 100% Surface Area (cm^2): 0.75 Area debrided (cm^2): 0.75 Volume (cm^3): 0.15 Tissue and other material debrided: subcutaneous tissue Devitalized tissue debrided: biofilm and slough Instrument(s) utilized: curette Bleeding: small Hemostasis obtained with: pressure Procedural pain (0-10): insensate Post-procedural pain: insensate Response to treatment: procedure was tolerated well * Gloria Mcdowell RN - 07/05/2020 8:34 AM EDT This RN wore a mask and gloves while doing patient care. documented in this encounter* Katie Munguia RN - 07/12/2020 8:36 AM EDT Surgical mask and gloves, and eyewear worn while in exam room with patient. * Helena Glass LPN - 07/12/2020 8:26 AM EDT Date: 07/12/2020 New labs/results as of last note Update from previous note Current Antibiotics: Doxycycline 100 mg po Daily through 10/2020 Previous Antibiotics: Maxipime 2 grams IV every 12 hours Doxycycline 100 mg PO daily until June 03, suppressive treatment Merrem 1,000 mg IV every 12 Hours Rocephin 2 gm IV every 24 Hours until 01/02/2020 Ancef 2,000 mg IV Dressings: per Dr. Mora I have personally reviewed the labs and results Test results Laboratory and Additional Data Reviewed: Current Cultures: 05/02/2020 Urine Aerobic Culture: No Growth. Final. 05/02/2020 Blood Culture #2: No Growth after 5 days. Final. 05/02/2020 Blood Culture #1: No Growth after 5 days. Final. Right Tib/Fib and Right Foot X-Ray 07/05/2020 FINDINGS: BONES: Again demonstrated is stable ankle fusion. Resection of the distal fibula. Placement of a retrograde intramedullary tommy through the calcaneus, talus and tibia pinned proximally with a single screw pinned distally with a dynamic screw. Additional lag screw through the hindfoot. There is marked degenerative changes of the midfoot and forefoot with lateral subluxation of the metatarsals as well as a fracture through the base of the 5th metatarsal, stable. Severe degenerative changes of the 1st metatarsophalangeal joint. SOFT TISSUES: Mild diffuse soft tissue swelling EFFUSION: None visible. OTHER: Negative. 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 Single lag screw. No mechanical failure. Severe degenerative changes throughout the hindfoot midfoot and forefoot. Transverse fracture proximal diaphysis of the 5th metatarsal. Remote resection head the 2nd proximal phalanx. Stable marked remodeling of the tarsal bones.. Stable resection of the distal fibula. No acute fracture or dislocation SOFT TISSUES: No visible soft tissue swelling or radiopaque foreign body. EFFUSION: None visible. OTHER: Negative. IMPRESSION: Stable ankle fusion * Maria Isabel Awad MD - 07/12/2020 8:23 AM EDT CONSULT NOTE 05/02/2020 Patient Name: Dyllan Huertas Admit Date: MR #: [id number] : 1960 Physicians: Rohit Aguilar MD (Family); No ref. 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 antibiotic Will need to watch very closely for any recurrence of infection and treat aggressively if indicatedin the future May 10 New blister of the right great toe Postop wound of the right ankle from surgery in May 01, 2020 May 24 Right foot postop wound is clean no drainage no cellulitis Enterobacter and gram-negative June 07 Postop wound is healed up Right great toe superficial ulceration no evidence of cellulitis right now Last CRP 7 and sed rate 37 #9 July Plantar foot wound is healed and stayed healed Toe ulcer is clean Recommend July 12 Doxycycline 100 g p.o. once a day suppressive treatment till October [address] Mora Culture the right toe today Readjust antibiotics if needed June 07 Doxycycline decreased to 100 mg p.o. per day We will go with suppressive treatment although wait till October 2020 which will be 6 months postopand if we need to go longer will go up to 1 year total Local dressings per Dr. Mora I will see him in [address] Mora I have discussed this with the patient as well as podiatry May 24 Doxycycline 100 g p.o. twice daily continue for now till June 18 After that we will cut it down to 1 tablet of doxycycline per day for long-term suppressive treatment may need to go up to November 03, 2020 to make it 6 months postop I looked at the films with Dr. Mora from last time Cast per Dr. Mora I will see him in 2 weeks X-ray per Dr. Mora today Labs will be done today here May 10 Cast was changed by podiatry today incision looks good without any evidence of secondary infection Doxycycline 100 mg p.o. twice a day continued for total of 1 month he has enough Revisit 2 weeks May 03 Discontinue the order for PICC line Discontinue IV cefepime P.o. doxycycline 100 mg twice daily for 30 days Follow-up in the wound clinic on Wednesdays with myself and Dr. Mora Any dressing orders will be per I have discussed with the patient as well as hospitalist May 02 PICC line placement Cefepime 2 g IV every 12 Follow-up current OR cultures however with the extent of infection he had before it would be prudent to give prolonged IV for now hardware would be at risk for infection CBC CMP sed rate CRP blood cultures x2 half an hour apart [employer]NAGEMENT to be sent today I have discussed with the hospitalist Chief Complaint/Reason for Visit: I am seeing this patient at the request of Dr. Emilie MD. I have reviewed the current hospital record, available laboratory, cardiology and imaging studies as well as available out patient records. History of Present Illness: Admission H&P by Ramírez Damico CNP on 05/01/2020: Dyllan Huertas is a 59 y.o. male with history of IDDM and neuropathy presents for status post right ankle arthrodesis. Dr. Mora performed the procedure today. Patient laid on bed without complaint. Patient is afebrile, vitals are stable. Patient will be on antibiotics and continue home meds. 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 doxycycline suppressive treatment for Enterobacter cloaca infection he also received Rocephinat one point eventually on May 01, 2020 patient underwent extensive surgery to the 7-hour surgery by Dr. Mora which was right foot arthrodesis subtalar arthrodesis right ankle which is corrective surgery for his Charcot and infectious disease consult for further help with antibiotic management Past medical surgical social family history nobody with boils all his details of previous history is in the notes He was a long-term suppressive treatment with doxycycline He is a chronic Schulte catheter because of nonweightbearing He had done home IV antibiotics in the past The Enterobacter cloaca he was [place] Allergy Information: I have reviewed the patient's allergies. Patient has no known allergies. Current Scheduled Meds: PMH/PSH/SH/FH reviewed, no change except: He is in the hospital receiving intravenous antibiotics May [address] Mora she said the approach she took for the surgery was a totally different area than the previous infected area intraoperatively she did not find any evidence of infection the bone was hard Intra-Op cultures were not done at this point based on her information we maynot need prolonged IV antibiotics at the midline order was discontinued and he would continue to maintain p.o. antibiotic to make sure skin soft tissue healing occurs and we will need to follow him in the wound clinic on a regular basis watch closely for any infection Patient also has his brother's today Denies any pain in the right ankle Review of Systems: All systems were reviewed and negative except: No fever chills nausea vomiting diarrhea Medications Reviewed. Chart Reviewed Physical Examination: BP 121/71 Pulse 65 Temp 98.5 F (36.9 C) (Infrared) Resp 18 SpO2 98% Exam Findings: Constitutional: Awake alert answers all question HENT: Pupils reactive head: No oral candidiasis Eyes: No icterus Neck: Supple Cardiovascular: Heart S1-S2 2 by systolic murmur present no S3 Murmur Pulmonary/Chest: Clear Abdominal: Soft Musculoskeletal: No calf tenderness on the right leg he has an Zechariah bandage postop Neurological: Right great toe tip there is a blackish discoloration which will need to watch closely but he does have sensations difficult to move toes in his postop brace Skin no redness or cellulitis n prior to surgery by Dr. Abby Schulte: He is on long-term Schulte catheter because of nonweightbearing is being followed by Dr. Izquierdo he still has a Schulte may come out in July IV: other: He is now status post right ankle arthrodesis by Dr. Mora on 05/01/2020 postop [address] bandage in place is able to recall the toes some toes are not discolored they look normal May 10 incision looks good per podiatry at the time of changing the cast May 24 incision looks good. The right great toe eschar is also with good bleeding June 07 postop wound healed up completely right great toe ulcer superficial without cellulitis July 12 the plantar foot wound is healed and stayed healed the great toe ulcer is very superficial clean Wound (Outpatient Only) 03/31/19 Foot Anterior;Right;Plantar (Active) Wound Image 04/26/20 1300 Wound Length (cm) 0 cm 04/26/20 1300 Wound Width (cm) 0 cm 04/26/20 1300 Wound Depth (cm) 0 cm 04/26/20 1300 Wound Surface Area (cm^2) 0 cm^2 04/26/20 1300 Wound Volume (cm^3) 0 cm^3 04/26/20 1300 Area % Change -100 04/26/20 1300 Volume % Change 0 04/26/20 1300 Tunneling Maximum Distance (cm) 0 cm 04/26/20 1300 Tunneling Position (o'clock) 0 04/26/20 1300 Undermining Maximum Distance (cm) 1 0 cm 04/26/20 1300 Undermining Starting Position (o'clock) 1 0 04/26/20 1300 Undermining Ending Position (o'clock) 1 0 04/26/20 1300 Wound Encounter Subsequent 04/26/20 1300 Wound Progress Improving 04/26/20 1300 Non-staged Wound Description Partial thickness 02/09/20 0700 Drainage Amount None 04/26/20 1300 Drainage Description Yellow 02/09/20 0700 Odor None 04/26/20 1300 Wound Margin Attached to wound base 03/01/20 0700 Adherent Yellow Slough % None 04/26/20 1300 Moist Yellow Slough % None 04/26/20 1300 Dry Black Eschar % None 04/26/20 1300 Moist Black Eschar % None 04/26/20 1300 Epithelialization % 76-100% 04/26/20 1300 Granulation % None 04/26/20 1300 Exposed Structure None 04/26/20 1300 Wound Bed Characteristics Clean;Dry;Intact 04/26/20 1300 Wound Closure Sutures 12/28/19 0815 Angeli-wound Assessment Temperature WNL 04/26/20 1300 Treatments Not Applicable 04/26/20 1300 Hemostasis Not applicable 04/26/20 1300 Cleansed Soap and water 04/26/20 1300 Primary Dressing Collagen;Antibiotic ointment / cream 02/09/20 0822 Secondary Dressing Gauze pad;Gauze roll 02/09/20 0822 Compression Dressing Tubilar eleastic bandage 04/26/20 1300 Wound 05/01/20 Surgical Wound Foot Right (Active) Wound Image 05/24/20 0858 Wound 05/10/20 Great Toe Anterior;Right (Active) Wound Image 07/12/20804 Wound Length (cm) 0.4 cm 07/12/20804 Wound Width (cm) 0.8 cm 07/12/20804 Wound Depth (cm) 0.1 cm 07/12/20804 Wound Surface Area (cm^2) 0.32 cm^2 07/12/20804 Wound Volume (cm^3) 0.03 cm^3 07/12/20804 Area % Change 0 07/12/20804 Drainage Amount Scant 07/12/20804 Drainage Description Serosanguineous 07/05/20 08 Odor None 07/12/20804 Wound Margin Flattened 07/12/20804 Adherent Yellow Slough % None 07/12/20804 Moist Yellow Slough % None 07/12/20804 Dry Black Eschar % None 07/12/20804 Moist Black Eschar % None 07/12/20804 Epithelialization % 76-100% 07/12/20804 Granulation % 76-100%;[place] 07/12/20804 Exposed Structure None 07/12/20804 Cleansed Soap and water 07/12/20804 Primary Dressing Collagen with silver 07/05/20831 Secondary Dressing Gauze pad 07/05/20831 Compression Dressing Zechariah wrap 07/05/20831 I have personally reviewed the labs and results Test results Laboratory and Additional Data Reviewed: Date: 06/07/2020 New labs/ results as of last note: 05/24/2020 Labs and other data reviewed: CBC Auto Differential Component Ref Range & Units 12d ago (05/24/20) 1mo ago (05/03/20) 1mo ago (05/02/20) 1mo ago (05/01/20) 1mo ago (04/26/20) 3mo ago (02/09/20) 5mo ago (12/28/19) WBC 4.50 - 11.00 K/mcL 4.09Low 6.78 8.37 6.59 6.01 4.66 RBC 4.50 - 5.90 M/mcL 3.80Low 3.46Low 3.58Low 4.91 4.53 4.42Low Hemoglobin 13.5 - 17.5 g/dL 10.8Low 9.8Low 10.3Low 12.6Low 14.0 12.1Low 11.6Low Hematocrit 41.0 - 53.0 % 32.4Low 30.0Low 30.8Low 37.8Low 42.4 38.2Low 38.0Low MCV 80.0 - 100.0 fL 85.3 86.7 86.0 86.4 84.3 86.0 MCH 26.0 - 34.0 pg 28.4 28.3 28.8 28.5 26.7 26.2 MCHC 31.0 - 37.0 g/dL 33.3 32.7 33.4 33.0 31.7 30.5Low Platelets 150 - 400 K/mcL 169 139Low 163 230 196 182 Comprehensive Metabolic Panel Component Ref Range & Units 12d ago (05/24/20) 1mo ago (05/03/20) 1mo ago (05/02/20) 1mo ago (05/01/20) 3mo ago (02/09/20) 5mo ago (12/28/19) 5mo ago (12/18/19) Sodium 135 - 145 mmol/L 141 138 140 142 142 142 142 Potassium 3.5 - 5.1 mmol/L 4.2 4.3 5.1 4.4 4.3 4.3 4.5 Chloride 98 - 108 mmol/L 110High 106 106 110High 109High 109High 106 Bicarbonate 21 - 32 mmol/L 26 27 28 27 28 31 25 Anion Gap 10 - 20 mmol/L 9Low 9Low 11 9Low 9Low 6Low 16 Glucose 65 - 99 mg/dL 171High 157High 262High 114High 205High 135High 82 BUN 8 - 25 mg/dL 17 29High 22 16 22 18 23 Creatinine 0.50 - 1.30 mg/dL 0.84 1.42High 1.51High 0.94 0.94 0.71 1.04 eGFR >=60 mL/min/1.73 m2 97 54Low 51Low 90 90 104 79 BUN/Creatinine Ratio 10.0 - 20.0 20.2High 20.4High 14.6 17.0 23.4High 25.4High 22.1High Total Protein 6.0 - 8.0 g/dL 6.6 6.3 6.9 7.0 7.2 Albumin 3.2 - 5.2 g/dL 3.2 3.0Low 3.5 3.1Low 3.0Low Calcium 8.4 - 10.2 mg/dL 9.3 8.1Low 8.3Low 9.1 9.2 9.2 9.6 Alkaline Phosphatase 40 - 150 U/L 95 52 72 93 94 AST 0 - 45 U/L 14 11 14 16 20 Total Bilirubin 0.0 - 1.3 mg/dL 0.3 0.3 0.3 0.4 0.3 ALT 14 - 65 U/L 21 11Low 19 19 27 CRP, Inflammation Component Ref Range & Units 12d ago (05/24/20) 1mo ago (05/03/20) 3mo ago (02/09/20) 5mo ago (12/28/19) 5mo ago (12/18/19) 5mo ago (12/12/19) 6mo ago (12/05/19) CRP(Inflammation) <=10.0 mg/L 7.0 92.3High 5.7 6.4 18.7High 52.4High 85.3High Sedimentation Rate Order: [id number] Status: Final result Visible to patient: No (not released) Next appt: 06/07/2020 at 08:30 AM in Wound Care (Maria Isabel Awad MD) Dx: Elevated C-reactive protein (CRP); El... Component Ref Range & Units 12d ago (05/24/20) 1mo ago (05/03/20) 1mo ago (04/26/20) 3mo ago (02/09/20) 5mo ago (12/28/19) 5mo ago (12/18/19) 5mo ago (12/12/19) Sed Rate 0 - 20 mm/hr 36High 45High 23High 24High 33High 72High 91High 05/24/2020 X-Ray Right ankle IMPRESSION: Postsurgical changes without acute osseous abnormality. 05/24/2020 X-Ray Right Foot IMPRESSION: Postsurgical changes without acute osseous abnormality. Update from previous note Current Antibiotics: Doxycycline 100 mg PO BID through 06/18/2020, then one tablet daily for 6 months. Previous Antibiotics: Maxipime 2 grams IV every 12 hours Doxycycline 100 mg PO daily until June 03, suppressive treatment Merrem 1,000 mg IV every 12 Hours Rocephin 2 gm IV every 24 Hours until 01/02/2020 Ancef 2,000 mg IV Update from previous note Current Cultures: 05/02/2020 Urine Aerobic Culture: No Growth. Final. 05/02/2020 Blood Culture #2: In Progress; No Growth after 5 days. Final. 05/02/2020 Blood Culture #1: In Progress; No Growth after 5 days. Final. Dressings: per Dr. Mora Right great toe: Betadine, DSD Right lower extremity: Cast Date: 05/24/2020 No new labs/ results as of last note: 05/10/2020 Update from previous note Current Antibiotics: Doxycycline 100 mg PO BID. Last day 06/02/2020. Previous Antibiotics: Maxipime 2 grams IV every 12 hours Doxycycline 100 mg PO daily until June 03, suppressive treatment Merrem 1,000 mg IV every 12 Hours Rocephin 2 gm IV every 24 Hours until 01/02/2020 Ancef 2,000 mg IV Update from previous note Current Cultures: 05/02/2020 Urine Aerobic Culture: No Growth. Final. 05/02/2020 Blood Culture #2: In Progress; No Growth after 5 days. Final. 05/02/2020 Blood Culture #1: In Progress; No Growth after 5 days. Final. Dressing: Per Dr. Mora Date: 05/10/2020 No new labs/ results as of last note: 05/03/2020 Current Antibiotics: Doxycycline 100 mg PO BID Previous Antibiotics: Maxipime 2 grams IV every 12 hours Doxycycline 100 mg PO daily until June 03, suppressive treatment Merrem 1,000 mg IV every 12 Hours Rocephin 2 gm IV every 24 Hours until 01/02/2020 Ancef 2,000 mg IV Update from previous note Current Cultures: 05/02/2020 Urine Aerobic Culture: No Growth. Final. 05/02/2020 Blood Culture #2: In Progress; No Growth after 5 days. Final. 05/02/2020 Blood Culture #1: In Progress; No Growth after 5 days. Final. Dressing: Per Dr. Mora Date: 05/03/2020 New labs/results as of last note Update from previous note Tmax: 98.8 Urine Output: 700 Stool: not recorded Current Antibiotics: Maxipime 2 gm IV every 12 Hours Previous Antibiotics: Doxycycline 100 mg PO daily until June 03, suppressive treatment Merrem 1,000 mg IV every 12 Hours Rocephin 2 gm IV every 24 Hours until 01/02/2020 Ancef 2,000 mg IV I have personally reviewed the labs and results Test results Laboratory and Additional Data Reviewed: Labs: CBC 05/03/2020 03:54 WBC: 6.78 RBC: 3.46 Hgb: 9.8 Hct: 30.0 Platelets: 139 Lymphocytes Abs: 0.89 Monocytes Abs: 0.91 CMP 05/03/2020 03:54 Glucose: 157 BUN: 29 Creatinine: 1.42 Sodium: 138 Potassium: 4.3 Total Protein: 6.3 Albumin: 3.0 Calcium: 8.1 Alk Phos: 52 AST: 11 ALT: 11 Total Bilirubin: 0.3 CRP 05/03/2020 03:54 92.3 Sed Rate 05/03/2020 03:54 45 U/A 05/02/2020 18:46 Clarity: Cloudy Specific [place]: 1.031 Protein: 100 Ketones: Trace Blood: Small Leukocyte Esterase: Large WBCS: 84 RBCS: 16 Bacteria: Many WBC Clumps: Many Hyaline Casts: 11-20 Amorphous Crystals: Few Mucus: Rare Current Cultures: 05/02/2020 Urine Aerobic Culture: No Growth, Incubation Continued. Preliminary. 05/02/2020 Blood Culture #2: In Progress; No Growth to Date. Preliminary. 05/02/2020 Blood Culture #1: In Progress; No Growth to Date. Preliminary. 04/28/2020 COVID-19, Molecular SARS-CoV-2 RNA: Not Detected. Final. Radiology: Right Ankle X-Ray 05/02/2020 FINDINGS: Fourteen spot fluoroscopic images were obtained in the operating room. Fluoroscopic technique limits osseous and soft tissue detail. Images demonstrate hindfoot and ankle joint arthrodesis with tibial intramedullary tommy extending through the calcaneus and talus. An additional cannulated lag screw is present on the final images, and a transcalcaneal fixation hardware is present. There is a proximal interlocking screw. A distal fibular osteotomy is present. Alignment appears anatomic. IMPRESSION: Spot fluoroscopic images obtained during right ankle arthrodesis. Please see dictated operative report for full details. Chest X-Ray 04/26/2020 ORDERED Current antibiotic received preop Ancef Previous Antibiotics: Doxycycline 100 mg PO daily until June 03, suppressive treatment Merrem 1,000 mg IV every 12 Hours Rocephin 2 gm IV every 24 Hours until 01/02/2020 Ancef 2,000 mg IV Invalid input(s): CO2 Current Cultures: 04/28/2020 COVID-19, Molecular SARS-CoV-2 RNA: Not Detected. Final. Recent Cultures: 12/28/2019 - Right foot, aerobic culture: Normal [place] after 48 hours. 12/21/2019 - Right foot, aerobic - normal chalino after 48 hours 12/21/2019 - Right foot, anaerobic: No anaerobic growth at 2 days. 12/10/2019 Right Foot Wound Aerobic Culture: Normal [place] After 48 Hours. Final 12/10/2019 Right foot wound, anaerobic culture: No anaerobic growth at 2 days. Final 12/08/2019 Urine Aerobic Culture: No Growth (<1,000 CFU/mL). Final. 12/07/2019 Urine Aerobic Culture on arrival to Nursing Rehab Unit: No Growth (<1,000 CFU/mL). Final. 12/02/2019 Right Foot Tissue Aerobic Culture: Normal [place] After 48 Hours. Final. 12/02/2019 Right Foot Tissue AFB Culture: No Acid Fast Bacilli after 8 weeks. Final. 12/02/2019 Right Foot Tissue Anaerobic Culture: No Anaerobic Growth at 2 Days. Final. 12/02/2019 Right Foot Tissue Fungus Culture: No fungus isolated at 4 weeks. Final. 12/01/2019 Blood Culture #1: No Growth After 5 Days. Final. 12/01/2019 Blood Culture #2: No Growth After 5 Days. Final. 11/30/2019 Right Foot Wound Aerobic Culture: Normal [place] After 48 Hours. Final. 11/21/2019 Left Leg Wound Aerobic Culture: Normal [place] After 24 Hours. Final. 11/20/2019 Right Foot Tissue Aerobic Culture: Moderate Growth Enterobacter cloacae complex, S=Youssef Sensitive. Final. 11/20/2019 Right Foot Tissue Anaerobic Culture: No Anaerobic Growth at 2 Days. Final. 11/20/2019 Right Foot Bone Aerobic Culture: Light Growth Enterobacter Cloacae Complex, S=Youssef Sensitive. Final. 11/20/2019 Right Foot Bone Anaerobic Culture: No Anaerobic Growth at 2 Days. Final. 05/30/2019 Right Foot Tissue Aerobic Culture: Normal [place] After 48 Hours. Final. 05/30/2019 Right Foot Tissue Anaerobic Culture: No Anaerobic Growth at 2 Days. Final. 03/23/2019 Right Foot Wound Aerobic Culture: Heavy Growth Raoultella [place], R=Ampicillin, S=Remainder of panel. 03/09/2019 Right Foot Wound Aerobic Culture: Normal [place] After 48 Hours. Final. 02/09/2019 Right Foot Wound Aerobic Culture: Normal [place] After 48 Hours. Final. 01/19/2019 Right Toe Two Wound Aerobic Culture: Heavy Growth Enterobacter Cloacae Complex, S=Youssef Sensitive. Final. Radiology: Right Ankle X-Ray 05/02/2020 ORDERED Right Tib/Fib X-Ray 05/01/2020 1. Fusion of the tibia, talus, and calcaneus. Alignment is anatomic. There has been resection of the lateral malleolus. Right Ankle X-Ray 05/01/2020 FINDINGS: Images are obtained with the right ankle in a splint which obscures bony detail. There is interval resection of the distal right fibula. Internal fixation of the right ankle is seen with intramedullary tommy seen in the right tibia traversing the tibiotalar joint. Additional smaller surgical screw isseen traversing the tibiotalar joint. Internal fixation of the calcaneus is also seen with metallicrod. Ankle and calcaneal fractures demonstrate normal alignment. Large plantar calcaneal spur is seen. Advanced degenerative changes are seen about the mid foot. Mild diffuse bony demineralization isseen. IMPRESSION: Images are obtained with the right ankle with in a splint which obscures bony detail. Postsurgical changes are seen, as detailed above with normal alignment. Right Tib/Fib X-Ray 05/01/2020 Status post removal of the external fixator with no acute osseous abnormality in the right tibia orfibula or right ankle. Right Foot X-Ray 05/01/2020 1. Prior external fixator replacement. Extensive deformity in the midfoot related to prior surgicalresection or Charcot changes. Continued subluxation between talus and navicular. 2. 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 Chest X-Ray 04/26/2020 ORDERED Right Foot X-Ray 11/20/2019 IMPRESSION: Intraoperative fluoroscopy for localization during right foot and ankle reconstruction and fixation. Please see operative report for details. Left Ankle X-Ray Ordered 11/20/2019 Right Tib/Fib,Right Foot X-Ray 02/16/2020 FINDINGS: There is extensive hardware from an external fixator present. This obscures fine bony detail.A single percutaneous pin is seen entering the plantar aspect of the foot through the calcaneus, talus, and entering the distal tibia. A 2nd slightly larger metallic tommy is seen entering the posterior calcaneus extending into the talus. Degenerative changes are present in the midfoot. There is soft tissue edema. IMPRESSION: Study is limited due to overlying external fixator. No significant change in alignment. NM White Cell Scan Spot Limited 03/08/2017 FINDINGS: A focal area of intense abnormal white blood cell migration is noted central plantar aspect of the right foot corresponding to the area of the wound demonstrated radiographically. No other focus of white blood cell migration abnormality is evident within the right or left foot. IMPRESSION: Focal area of abnormal white blood cell migration at the plantar aspect central right foot may be at the wound itself or may be involving the bone with associated fracture as demonstrated radiographically. Anatomic detail is insufficient for differentiation between the two. Renal U/S 03/07/2017 IMPRESSION: Severe thickening of the urinary bladder wall. This could be due to outlet obstruction with hypertrophy of the wall. If there is no such history, this should be evaluated with cystoscopy. CVPS: Lower Arterial Doppler: not on file Lower Venous Doppler: not on file 2D Echo 11/23/2019 Moderate LV enlargement with LVH. Global systolic dysfunction with segmental features. LVEF 30% Elevated LV filling pressures RV is dilated with severe RV dysfunction Mild mitral annular calcification, mild thickening of the aortic valve without hemodynamically significant valvular disease There is a atrial level right to left shunt identified with saline contrast with free breathing andValsalva most likely via PFO LVEF unchanged from to previous echo from 2017 Surgeries: Please see above for surgical history Procedure: RIGHT ANKLE ARTHRODESIS, SUBTALAR ARTHRODESIS RIGHT ANKLE, Bone [place] Graft From RightFibula, Application of Splint Date: 05/01/2020 Alena Mora DPM Procedure: RIGHT FOOT RECONSTRUCTION WITH APPLICATION OF CIRCULAR STATIC EXTERNAL FIXATION Date: 11/20/2019 Surgeon: Alena Mora DPM Procedure: ARTHROPLASTY 2ND TOE RIGHT FOOT Date: 01/25/2019 Surgeon: Rosa M Robles DPM Pathology: 12/02/2019 A. Soft tissue, Right Foot, excision: Non-specific ulcer. documented in this encounter* Katie Munguia RN - 07/12/2020 8:37 AM EDT Surgical mask and gloves, and eyewear worn while in exam room with patient. * Alena Mora DPM - 07/12/2020 8:32 AM EDT Associated Order(s): Wound Debridement Post-Procedure Diagnose(s): Chronic ulcer of right great toe, with unspecified severity (HCC); Charcot foot due to diabetes mellitus (HCC); 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) Subjective: Patient is a pleasant 59-year-old male who presents to the wound care center 9.5 weeks status post ankle joint and subtalar joint arthrodesis via intramedullary nail fixation in treatment for his Charcot neuroarthropathy. Patient states that he is doing well. He has been WB in the cam boot with hiswalker. Denies any pain to his right leg. Patient reports that his right great toe blister/necroticulcer is improving. Denies any redness, swelling, or drainage. No other pedal complaints at this time.Denies fevers, chills, nausea, vomiting, chest pain, shortness of breath, or any other constitutional symptoms. Objective: Vascular: DP and PT pulses are palpable. Cap refill time is brisk to distal digits. Skin temperature is warm to warm from proximal tibial tuberosity to distal digits. Neuro: Gross sensation is intact. Protective sensation is absent. Derm: Surgical incision sites are well healed. No angeli-incisional erythema, edema, dehiscence or any acute signs of infection. The right great toe has a full thickness ulceration measuring 1.5 x 0.5 x 0.2 cm. Wound bed is fibrogranular. No surrounding erythema, edema, drainage, or any acute signs of infection. Musculoskeletal: Compartments are soft and compressible. No calf pain. Assessment: 9.5 weeks status post ankle and subtalar joint arthrodesis via IM nail fixation, right lower extremity (Dr. Mora) doing well Full thickness ulceration right great toe - improving Plan: Patient was seen and evaluated. Discussed all clinical and radiographic findings. New radiographs obtained showing interval osseous consolidation across ankle and subtalar joints. Hardware is intact without any signs of failure or lucency. All incisions are clean and dry without any sign of infection. Patient has a full thickness ulceration at the right great toe secondary to a prior blister/deep tissue injury that is improving. This is a separate identifiable problem from his surgery. The black eschar was in need of debridement to remove noviable soft tissue. See procedure below. Following the procedure, kb was applied to right great toe; light sterile dressing and zechariah bandage to right leg Patient is to WBAT in the cam boot with the use his walker and may transition out as to discontinuehis walker. Follow-up in the wound care center in 1 week Alena Mora DPM, MSBS Podiatric Physician and Surgeon Debridement Consent obtained? verbal Consent given by: patient Risks discussed? procedural risks discussed Immediately prior to the procedure a time out was called Performed by: physician Debridement type: surgical Level of debridement: subcutaneous tissue Pain control: none Post-debridement measurements Length (cm): 1 Width (cm): 0.3 Depth (cm): 0.1 Percent debrided: 100% Surface Area (cm^2): 0.3 Area debrided (cm^2): 0.3 Volume (cm^3): 0.03 Tissue and other material debrided: subcutaneous tissue Devitalized tissue debrided: biofilm, callus and slough Instrument(s) utilized: curette Bleeding: small Hemostasis obtained with: pressure Procedural pain (0-10): insensate Post-procedural pain: insensate Response to treatment: procedure was tolerated well documented in this encounter* Marlen Marroquin LPN - 08/02/2020 7:47 AM EDT Mask,protective eyewear, and gloves were worn while in the room with this patient.Patient wearing mask at all times while staff in the room. Patient states last Wednesday ( jul 24), when walking felt pain in right leg & ankle saw Dr Archer in office that day did xray's. * Maria Isabel Awad MD - 08/02/2020 7:45 AM EDT CONSULT NOTE 05/02/2020 Patient Name: Dyllan Huertas Admit Date: MR #: [id number] : 1960 Physicians: Rohit Aguilar MD (Family); No ref. 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 antibiotic Will need to watch very closely for any recurrence of infection and treat aggressively if indicatedin the future May 10 New blister of the right great toe Postop wound of the right ankle from surgery in May 01, 2020 May 24 Right foot postop wound is clean no drainage no cellulitis Enterobacter and gram-negative June 07 Postop wound is healed up Right great toe superficial ulceration no evidence of cellulitis right now Last CRP 7 and sed rate 37 #9 July Plantar foot wound is healed and stayed healed Toe ulcer is clean August 02, 2020 Right foot ulcer healed Right foot Charcot with hardware placed May 01, 2020 Right anterior leg area wound with trauma with a step no kali ulceration x-ray done by Dr. Archer was negative for any fracture Tiny blisters if at all any Recommend August 02 Doxycycline 100 g p.o. per day till October 2020 Right anterior leg area with tiny blisters I need to culture because he has hardware in the ankle we want to be very aggressive with any antibiotic management Consider Triad to the right anterior leg area I would leave it up to Dr. Mora Return to see me next week with Dr. Mora July 12 Doxycycline 100 g p.o. once a day suppressive treatment till October [address] Mora Culture the right toe today Readjust antibiotics if needed June 07 Doxycycline decreased to 100 mg p.o. per day We will go with suppressive treatment although wait till October 2020 which will be 6 months postopand if we need to go longer will go up to 1 year total Local dressings per Dr. Mora I will see him in [address] Mora I have discussed this with the patient as well as podiatry May 24 Doxycycline 100 g p.o. twice daily continue for now till June 18 After that we will cut it down to 1 tablet of doxycycline per day for long-term suppressive treatment may need to go up to November 03, 2020 to make it 6 months postop I looked at the films with Dr. Mora from last time Cast per Dr. Mora I will see him in 2 weeks X-ray per Dr. Mora today Labs will be done today here May 10 Cast was changed by podiatry today incision looks good without any evidence of secondary infection Doxycycline 100 mg p.o. twice a day continued for total of 1 month he has enough Revisit 2 weeks May 03 Discontinue the order for PICC line Discontinue IV cefepime P.o. doxycycline 100 mg twice daily for 30 days Follow-up in the wound clinic on Wednesdays with myself and Dr. Mora Any dressing orders will be per I have discussed with the patient as well as hospitalist May 02 PICC line placement Cefepime 2 g IV every 12 Follow-up current OR cultures however with the extent of infection he had before it would be prudent to give prolonged IV for now hardware would be at risk for infection CBC CMP sed rate CRP blood cultures x2 half an hour apart [employer] MANAGEMENT to be sent today I have discussed with the hospitalist Chief Complaint/Reason for Visit: I am seeing this patient at the request of Dr. Emilie MD. I have reviewed the current hospital record, available laboratory, cardiology and imaging studies as well as available out patient records. History of Present Illness: Admission H&P by Ramírez Damico CNP on 05/01/2020: Dyllan Huertas is a 59 y.o. male with history of IDDM and neuropathy presents for status post right ankle arthrodesis. Dr. Mora performed the procedure today. Patient laid on bed without complaint. Patient is afebrile, vitals are stable. Patient will be on antibiotics and continue home meds. 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 doxycycline suppressive treatment for Enterobacter cloaca infection he also received Rocephinat one point eventually on May 01, 2020 patient underwent extensive surgery to the 7-hour surgery by Dr. Mora which was right foot arthrodesis subtalar arthrodesis right ankle which is corrective surgery for his Charcot and infectious disease consult for further help with antibiotic management Past medical surgical social family history nobody with boils all his details of previous history is in the notes He was a long-term suppressive treatment with doxycycline He is a chronic Schulte catheter because of nonweightbearing He had done home IV antibiotics in the past The Enterobacter cloaca he was [place] Allergy Information: I have reviewed the patient's allergies. Patient has no known allergies. Current Scheduled Meds: PMH/PSH/SH/FH reviewed, no change except: He is in the hospital receiving intravenous antibiotics May [address] Mora she said the approach she took for the surgery was a totally different area than the previous infected area intraoperatively she did not find any evidence of infection the bone was hard Intra-Op cultures were not done at this point based on her information we maynot need prolonged IV antibiotics at the midline order was discontinued and he would continue to maintain p.o. antibiotic to make sure skin soft tissue healing occurs and we will need to follow him in the wound clinic on a regular basis watch closely for any infection Patient also has his brother's today Denies any pain in the right ankle Review of Systems: All systems were reviewed and negative except: No fever chills nausea vomiting diarrhea Medications Reviewed. Chart Reviewed Physical Examination: There were no vitals taken for this visit.Exam Findings: Constitutional: Awake alert answers all question HENT: Pupils reactive head: No oral candidiasis Eyes: No icterus Neck: Supple Cardiovascular: Heart S1-S2 2 by systolic murmur present no S3 Murmur Pulmonary/Chest: Clear Abdominal: Soft Musculoskeletal: No calf tenderness on the right leg he has an Zechariah bandage postop Neurological: Right great toe tip there is a blackish discoloration which will need to watch closely but he does have sensations difficult to move toes in his postop brace Skin no redness or cellulitis n prior to surgery by Dr. Abby Greggey: He is on long-term Schulte catheter because of nonweightbearing is being followed by Dr. Izquierdo he still has a Schulte may come out in July IV: other: He is now status post right ankle arthrodesis by Dr. Mora on 05/01/2020 postop [address] bandage in place is able to recall the toes some toes are not discolored they look normal May 10 incision looks good per podiatry at the time of changing the cast May 24 incision looks good. The right great toe eschar is also with good bleeding June 07 postop wound healed up completely right great toe ulcer superficial without cellulitis July 12 the plantar foot wound is healed and stayed healed the great toe ulcer is very superficial clean August 02 right anterior leg tiny blister with trauma against a step Right foot ulcer is healed stayed healed he has hardware there is no redness in the foot right great toe eschar is dry The anterior tibial area we can feel a bump in the bone though there was no fracture Wound (Outpatient Only) 03/31/19 Foot Anterior;Right;Plantar (Active) Wound Image 04/26/20 1300 Wound Length (cm) 0 cm 04/26/20 1300 Wound Width (cm) 0 cm 04/26/20 1300 Wound Depth (cm) 0 cm 04/26/20 1300 Wound Surface Area (cm^2) 0 cm^2 04/26/20 1300 Wound Volume (cm^3) 0 cm^3 04/26/20 1300 Area % Change -100 04/26/20 1300 Volume % Change 0 04/26/20 1300 Tunneling Maximum Distance (cm) 0 cm 04/26/20 1300 Tunneling Position (o'clock) 0 04/26/20 1300 Undermining Maximum Distance (cm) 1 0 cm 04/26/20 1300 Undermining Starting Position (o'clock) 1 0 04/26/20 1300 Undermining Ending Position (o'clock) 1 0 04/26/20 1300 Wound Encounter Subsequent 04/26/20 1300 Wound Progress Improving 04/26/20 1300 Non-staged Wound Description Partial thickness 02/09/20 07 Drainage Amount None 04/26/20 1300 Drainage Description Yellow 02/09/20 0700 Odor None 04/26/20 1300 Wound Margin Attached to wound base 03/01/20 0700 Adherent Yellow Slough % None 04/26/20 1300 Moist Yellow Slough % None 04/26/20 1300 Dry Black Eschar % None 04/26/20 1300 Moist Black Eschar % None 04/26/20 1300 Epithelialization % 76-100% 04/26/20 1300 Granulation % None 04/26/20 1300 Exposed Structure None 04/26/20 1300 Wound Bed Characteristics Clean;Dry;Intact 04/26/20 1300 Wound Closure Sutures 12/28/19 0815 Angeli-wound Assessment Temperature WNL 04/26/20 1300 Treatments Not Applicable 04/26/20 1300 Hemostasis Not applicable 04/26/20 1300 Cleansed Soap and water 04/26/20 1300 Primary Dressing Collagen;Antibiotic ointment / cream 02/09/20 08 Secondary Dressing Gauze pad;Gauze roll 02/09/20 08 Compression Dressing Tubilar eleastic bandage 04/26/20 1300 Wound 05/01/20 Surgical Wound Foot Right (Active) Wound Image 05/24/20 0858 Wound 05/10/20 Great Toe Anterior;Right (Active) Wound Image 08/02/20 0744 Wound Length (cm) 0.5 cm 08/02/20 0744 Wound Width (cm) 1.5 cm 08/02/20 0744 Wound Depth (cm) 0.1 cm 07/12/20 08 Wound Surface Area (cm^2) 0.75 cm^2 08/02/20 0744 Wound Volume (cm^3) 0.03 cm^3 07/12/20 0805 Area % Change 134.38 08/02/20 0744 Drainage Amount None 08/02/20 0744 Drainage Description Serosanguineous 07/05/20 0832 Odor None 08/02/20 0744 Wound Margin Attached to wound base 08/02/20 0744 Adherent Yellow Slough % None 08/02/20 0744 Moist Yellow Slough % None 08/02/20 0744 Dry Black Eschar % None 08/02/20 0744 Moist Black Eschar % None 08/02/20 0744 Epithelialization % 51-75% 08/02/20 07 Granulation % 76-100%;[place] 07/12/20 08 Exposed Structure None 07/12/20 08 Wound Bed Characteristics Dry;Intact;Brown;[place] 08/02/20 0744 Cleansed Soap and water 08/02/20 0744 Primary Dressing Collagen with silver 07/12/20 08 Secondary Dressing Gauze pad;Gauze roll 07/12/20 08 Compression Dressing Zechariah wrap 07/12/20 0805 Wound 08/02/20 Pre-tibial Right (Active) Wound Image 08/02/20 0745 Wound Progress Initial exam 08/02/20 0745 Cleansed Soap and water 08/02/20 0745 I have personally reviewed the labs and results Test results Laboratory and Additional Data Reviewed: Date: 08/02/2020 No new labs/ results as of last note: 07/12/2020 X-rays right leg taken 07/24/[address] Archer's [place] office. Per patient, Dr. Archer told him Update from previous note Current Antibiotics: Doxycycline 100 mg po Daily through 10/2020 Previous Antibiotics: Maxipime 2 grams IV every 12 hours Doxycycline 100 mg PO daily until June 03, suppressive treatment Merrem 1,000 mg IV every 12 Hours Rocephin 2 gm IV every 24 Hours until 01/02/2020 Ancef 2,000 mg IV Current culture: 07/12/2020 Right great toe, aerobic culture: Normal chalino after 48 hours. Dressings: Right great toe: Kb Right leg: Kerlix, zechariah. Date: 06/07/2020 New labs/ results as of last note: 05/24/2020 Labs and other data reviewed: CBC Auto Differential Component Ref Range & Units 12d ago (05/24/20) 1mo ago (05/03/20) 1mo ago (05/02/20) 1mo ago (05/01/20) 1mo ago (04/26/20) 3mo ago (02/09/20) 5mo ago (12/28/19) WBC 4.50 - 11.00 K/mcL 4.09Low 6.78 8.37 6.59 6.01 4.66 RBC 4.50 - 5.90 M/mcL 3.80Low 3.46Low 3.58Low 4.91 4.53 4.42Low Hemoglobin 13.5 - 17.5 g/dL 10.8Low 9.8Low 10.3Low 12.6Low 14.0 12.1Low 11.6Low Hematocrit 41.0 - 53.0 % 32.4Low 30.0Low 30.8Low 37.8Low 42.4 38.2Low 38.0Low MCV 80.0 - 100.0 fL 85.3 86.7 86.0 86.4 84.3 86.0 MCH 26.0 - 34.0 pg 28.4 28.3 28.8 28.5 26.7 26.2 MCHC 31.0 - 37.0 g/dL 33.3 32.7 33.4 33.0 31.7 30.5Low Platelets 150 - 400 K/mcL 169 139Low 163 230 196 182 Comprehensive Metabolic Panel Component Ref Range & Units 12d ago (05/24/20) 1mo ago (05/03/20) 1mo ago (05/02/20) 1mo ago (05/01/20) 3mo ago (02/09/20) 5mo ago (12/28/19) 5mo ago (12/18/19) Sodium 135 - 145 mmol/L 141 138 140 142 142 142 142 Potassium 3.5 - 5.1 mmol/L 4.2 4.3 5.1 4.4 4.3 4.3 4.5 Chloride 98 - 108 mmol/L 110High 106 106 110High 109High 109High 106 Bicarbonate 21 - 32 mmol/L 26 27 28 27 28 31 25 Anion Gap 10 - 20 mmol/L 9Low 9Low 11 9Low 9Low 6Low 16 Glucose 65 - 99 mg/dL 171High 157High 262High 114High 205High 135High 82 BUN 8 - 25 mg/dL 17 29High 22 16 22 18 23 Creatinine 0.50 - 1.30 mg/dL 0.84 1.42High 1.51High 0.94 0.94 0.71 1.04 eGFR >=60 mL/min/1.73 m2 97 54Low 51Low 90 90 104 79 BUN/Creatinine Ratio 10.0 - 20.0 20.2High 20.4High 14.6 17.0 23.4High 25.4High 22.1High Total Protein 6.0 - 8.0 g/dL 6.6 6.3 6.9 7.0 7.2 Albumin 3.2 - 5.2 g/dL 3.2 3.0Low 3.5 3.1Low 3.0Low Calcium 8.4 - 10.2 mg/dL 9.3 8.1Low 8.3Low 9.1 9.2 9.2 9.6 Alkaline Phosphatase 40 - 150 U/L 95 52 72 93 94 AST 0 - 45 U/L 14 11 14 16 20 Total Bilirubin 0.0 - 1.3 mg/dL 0.3 0.3 0.3 0.4 0.3 ALT 14 - 65 U/L 21 11Low 19 19 27 CRP, Inflammation Component Ref Range & Units 12d ago (05/24/20) 1mo ago (05/03/20) 3mo ago (02/09/20) 5mo ago (12/28/19) 5mo ago (12/18/19) 5mo ago (12/12/19) 6mo ago (12/05/19) CRP(Inflammation) <=10.0 mg/L 7.0 92.3High 5.7 6.4 18.7High 52.4High 85.3High Sedimentation Rate Order: [id number] Status: Final result Visible to patient: No (not released) Next appt: 06/07/2020 at 08:30 AM in Wound Care (Maria Isabel Awad MD) Dx: Elevated C-reactive protein (CRP); El... Component Ref Range & Units 12d ago (05/24/20) 1mo ago (05/03/20) 1mo ago (04/26/20) 3mo ago (02/09/20) 5mo ago (12/28/19) 5mo ago (12/18/19) 5mo ago (12/12/19) Sed Rate 0 - 20 mm/hr 36High 45High 23High 24High 33High 72High 91High 05/24/2020 X-Ray Right ankle IMPRESSION: Postsurgical changes without acute osseous abnormality. 05/24/2020 X-Ray Right Foot IMPRESSION: Postsurgical changes without acute osseous abnormality. Update from previous note Current Antibiotics: Doxycycline 100 mg PO BID through 06/18/2020, then one tablet daily for 6 months. Previous Antibiotics: Maxipime 2 grams IV every 12 hours Doxycycline 100 mg PO daily until June 03, suppressive treatment Merrem 1,000 mg IV every 12 Hours Rocephin 2 gm IV every 24 Hours until 01/02/2020 Ancef 2,000 mg IV Update from previous note Current Cultures: 05/02/2020 Urine Aerobic Culture: No Growth. Final. 05/02/2020 Blood Culture #2: In Progress; No Growth after 5 days. Final. 05/02/2020 Blood Culture #1: In Progress; No Growth after 5 days. Final. Dressings: per Dr. Mora Right great toe: Betadine, DSD Right lower extremity: Cast Date: 05/24/2020 No new labs/ results as of last note: 05/10/2020 Update from previous note Current Antibiotics: Doxycycline 100 mg PO BID. Last day 06/02/2020. Previous Antibiotics: Maxipime 2 grams IV every 12 hours Doxycycline 100 mg PO daily until June 03, suppressive treatment Merrem 1,000 mg IV every 12 Hours Rocephin 2 gm IV every 24 Hours until 01/02/2020 Ancef 2,000 mg IV Update from previous note Current Cultures: 05/02/2020 Urine Aerobic Culture: No Growth. Final. 05/02/2020 Blood Culture #2: In Progress; No Growth after 5 days. Final. 05/02/2020 Blood Culture #1: In Progress; No Growth after 5 days. Final. Dressing: Per Dr. Mora Date: 05/10/2020 No new labs/ results as of last note: 05/03/2020 Current Antibiotics: Doxycycline 100 mg PO BID Previous Antibiotics: Maxipime 2 grams IV every 12 hours Doxycycline 100 mg PO daily until June 03, suppressive treatment Merrem 1,000 mg IV every 12 Hours Rocephin 2 gm IV every 24 Hours until 01/02/2020 Ancef 2,000 mg IV Update from previous note Current Cultures: 05/02/2020 Urine Aerobic Culture: No Growth. Final. 05/02/2020 Blood Culture #2: In Progress; No Growth after 5 days. Final. 05/02/2020 Blood Culture #1: In Progress; No Growth after 5 days. Final. Dressing: Per Dr. Mora Date: 05/03/2020 New labs/results as of last note Update from previous note Tmax: 98.8 Urine Output: 700 Stool: not recorded Current Antibiotics: Maxipime 2 gm IV every 12 Hours Previous Antibiotics: Doxycycline 100 mg PO daily until June 03, suppressive treatment Merrem 1,000 mg IV every 12 Hours Rocephin 2 gm IV every 24 Hours until 01/02/2020 Ancef 2,000 mg IV I have personally reviewed the labs and results Test results Laboratory and Additional Data Reviewed: Labs: CBC 05/03/2020 03:54 WBC: 6.78 RBC: 3.46 Hgb: 9.8 Hct: 30.0 Platelets: 139 Lymphocytes Abs: 0.89 Monocytes Abs: 0.91 CMP 05/03/2020 03:54 Glucose: 157 BUN: 29 Creatinine: 1.42 Sodium: 138 Potassium: 4.3 Total Protein: 6.3 Albumin: 3.0 Calcium: 8.1 Alk Phos: 52 AST: 11 ALT: 11 Total Bilirubin: 0.3 CRP 05/03/2020 03:54 92.3 Sed Rate 05/03/2020 03:54 45 U/A 05/02/2020 18:46 Clarity: Cloudy Specific [place]: 1.031 Protein: 100 Ketones: Trace Blood: Small Leukocyte Esterase: Large WBCS: 84 RBCS: 16 Bacteria: Many WBC Clumps: Many Hyaline Casts: 11-20 Amorphous Crystals: Few Mucus: Rare Current Cultures: 05/02/2020 Urine Aerobic Culture: No Growth, Incubation Continued. Preliminary. 05/02/2020 Blood Culture #2: In Progress; No Growth to Date. Preliminary. 05/02/2020 Blood Culture #1: In Progress; No Growth to Date. Preliminary. 04/28/2020 COVID-19, Molecular SARS-CoV-2 RNA: Not Detected. Final. Radiology: Right Ankle X-Ray 05/02/2020 FINDINGS: Fourteen spot fluoroscopic images were obtained in the operating room. Fluoroscopic technique limits osseous and soft tissue detail. Images demonstrate hindfoot and ankle joint arthrodesis with tibial intramedullary tommy extending through the calcaneus and talus. An additional cannulated lag screw is present on the final images, and a transcalcaneal fixation hardware is present. There is a proximal interlocking screw. A distal fibular osteotomy is present. Alignment appears anatomic. IMPRESSION: Spot fluoroscopic images obtained during right ankle arthrodesis. Please see dictated operative report for full details. Chest X-Ray 04/26/2020 ORDERED Current antibiotic received preop Ancef Previous Antibiotics: Doxycycline 100 mg PO daily until June 03, suppressive treatment Merrem 1,000 mg IV every 12 Hours Rocephin 2 gm IV every 24 Hours until 01/02/2020 Ancef 2,000 mg IV Invalid input(s): CO2 Current Cultures: 04/28/2020 COVID-19, Molecular SARS-CoV-2 RNA: Not Detected. Final. Recent Cultures: 12/28/2019 - Right foot, aerobic culture: Normal Chalino after 48 hours. 12/21/2019 - Right foot, aerobic - normal chalino after 48 hours 12/21/2019 - Right foot, anaerobic: No anaerobic growth at 2 days. 12/10/2019 Right Foot Wound Aerobic Culture: Normal Chalino After 48 Hours. Final 12/10/2019 Right foot wound, anaerobic culture: No anaerobic growth at 2 days. Final 12/08/2019 Urine Aerobic Culture: No Growth (<1,000 CFU/mL). Final. 12/07/2019 Urine Aerobic Culture on arrival to Nursing Rehab Unit: No Growth (<1,000 CFU/mL). Final. 12/02/2019 Right Foot Tissue Aerobic Culture: Normal Chalino After 48 Hours. Final. 12/02/2019 Right Foot Tissue AFB Culture: No Acid Fast Bacilli after 8 weeks. Final. 12/02/2019 Right Foot Tissue Anaerobic Culture: No Anaerobic Growth at 2 Days. Final. 12/02/2019 Right Foot Tissue Fungus Culture: No fungus isolated at 4 weeks. Final. 12/01/2019 Blood Culture #1: No Growth After 5 Days. Final. 12/01/2019 Blood Culture #2: No Growth After 5 Days. Final. 11/30/2019 Right Foot Wound Aerobic Culture: Normal Chalino After 48 Hours. Final. 11/21/2019 Left Leg Wound Aerobic Culture: Normal Chalino After 24 Hours. Final. 11/20/2019 Right Foot Tissue Aerobic Culture: Moderate Growth Enterobacter cloacae complex, S=Youssef Sensitive. Final. 11/20/2019 Right Foot Tissue Anaerobic Culture: No Anaerobic Growth at 2 Days. Final. 11/20/2019 Right Foot Bone Aerobic Culture: Light Growth Enterobacter Cloacae Complex, S=Youssef Sensitive. Final. 11/20/2019 Right Foot Bone Anaerobic Culture: No Anaerobic Growth at 2 Days. Final. 05/30/2019 Right Foot Tissue Aerobic Culture: Normal Chalino After 48 Hours. Final. 05/30/2019 Right Foot Tissue Anaerobic Culture: No Anaerobic Growth at 2 Days. Final. 03/23/2019 Right Foot Wound Aerobic Culture: Heavy Growth Raoultella [place], R=Ampicillin, S=Remainder of panel. 03/09/2019 Right Foot Wound Aerobic Culture: Normal Chalino After 48 Hours. Final. 02/09/2019 Right Foot Wound Aerobic Culture: Normal Chalino After 48 Hours. Final. 01/19/2019 Right Toe Two Wound Aerobic Culture: Heavy Growth Enterobacter Cloacae Complex, S=Youssef Sensitive. Final. Radiology: Right Ankle X-Ray 05/02/2020 ORDERED Right Tib/Fib X-Ray 05/01/2020 1. Fusion of the tibia, talus, and calcaneus. Alignment is anatomic. There has been resection of the lateral malleolus. Right Ankle X-Ray 05/01/2020 FINDINGS: Images are obtained with the right ankle in a splint which obscures bony detail. There is interval resection of the distal right fibula. Internal fixation of the right ankle is seen with intramedullary tommy seen in the right tibia traversing the tibiotalar joint. Additional smaller surgical screw isseen traversing the tibiotalar joint. Internal fixation of the calcaneus is also seen with metallicrod. Ankle and calcaneal fractures demonstrate normal alignment. Large plantar calcaneal spur is seen. Advanced degenerative changes are seen about the mid foot. Mild diffuse bony demineralization isseen. IMPRESSION: Images are obtained with the right ankle with in a splint which obscures bony detail. Postsurgical changes are seen, as detailed above with normal alignment. Right Tib/Fib X-Ray 05/01/2020 Status post removal of the external fixator with no acute osseous abnormality in the right tibia orfibula or right ankle. Right Foot X-Ray 05/01/2020 1. Prior external fixator replacement. Extensive deformity in the midfoot related to prior surgicalresection or Charcot changes. Continued subluxation between talus and navicular. 2. 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 Chest X-Ray 04/26/2020 ORDERED Right Foot X-Ray 11/20/2019 IMPRESSION: Intraoperative fluoroscopy for localization during right foot and ankle reconstruction and fixation. Please see operative report for details. Left Ankle X-Ray Ordered 11/20/2019 Right Tib/Fib,Right Foot X-Ray 02/16/2020 FINDINGS: There is extensive hardware from an external fixator present. This obscures fine bony detail.A single percutaneous pin is seen entering the plantar aspect of the foot through the calcaneus, talus, and entering the distal tibia. A 2nd slightly larger metallic tommy is seen entering the posterior calcaneus extending into the talus. Degenerative changes are present in the midfoot. There is soft tissue edema. IMPRESSION: Study is limited due to overlying external fixator. No significant change in alignment. NM White Cell Scan Spot Limited 03/08/2017 FINDINGS: A focal area of intense abnormal white blood cell migration is noted central plantar aspect of the right foot corresponding to the area of the wound demonstrated radiographically. No other focus of white blood cell migration abnormality is evident within the right or left foot. IMPRESSION: Focal area of abnormal white blood cell migration at the plantar aspect central right foot may be at the wound itself or may be involving the bone with associated fracture as demonstrated radiographically. Anatomic detail is insufficient for differentiation between the two. Renal U/S 03/07/2017 IMPRESSION: Severe thickening of the urinary bladder wall. This could be due to outlet obstruction with hypertrophy of the wall. If there is no such history, this should be evaluated with cystoscopy. CVPS: Lower Arterial Doppler: not on file Lower Venous Doppler: not on file 2D Echo 11/23/2019 Moderate LV enlargement with LVH. Global systolic dysfunction with segmental features. LVEF 30% Elevated LV filling pressures RV is dilated with severe RV dysfunction Mild mitral annular calcification, mild thickening of the aortic valve without hemodynamically significant valvular disease There is a atrial level right to left shunt identified with saline contrast with free breathing andValsalva most likely via PFO LVEF unchanged from to previous echo from 2017 Surgeries: Please see above for surgical history Procedure: RIGHT ANKLE ARTHRODESIS, SUBTALAR ARTHRODESIS RIGHT ANKLE, Bone [place] Graft From RightFibula, Application of Splint Date: 05/01/2020 Alena Mora DPM Procedure: RIGHT FOOT RECONSTRUCTION WITH APPLICATION OF CIRCULAR STATIC EXTERNAL FIXATION Date: 11/20/2019 Surgeon: Alena Mora DPM Procedure: ARTHROPLASTY 2ND TOE RIGHT FOOT Date: 01/25/2019 Surgeon: Rosa M Robles DPM Pathology: 12/02/2019 A. Soft tissue, Right Foot, excision: Non-specific ulcer. * Paola Guallpa PSA - 08/02/2020 7:45 AM EDT Patient called today for COVID-19 screening regarding upcoming appointment in wound clinic. Pt did not answer. Message was left stating to call wound clinic if any of these answers are yes. Have you been in close contact with anyone confirmed to have coronavirus/COVID- 19 in the past 14 days? NO Have you traveled out of state or internationally in the past 14 days? NO In the last 24 hours have you had any of the following symptoms? Fever over 100 F NO Cough NO Shortness of breath or difficulty breathing NO Chills or repeated shaking with chills NO Muscle pain, headache, or sore throat NO Any loss of taste or smell NO Diarrhea NO Patient was reminded at this time wound clinic is not allowing visitors for social distancing purposes. Patient was informed of new procedure to gain access to wound clinic. * Phoebe Duncan RN - 08/02/2020 7:45 AM EDT Date: 08/02/2020 No new labs/ results as of last note: 07/12/2020 X-rays right leg taken 07/24/[address] Archer's [place] office. Per patient, Dr. Archer told him Update from previous note Current Antibiotics: Doxycycline 100 mg po Daily through 10/2020 Previous Antibiotics: Maxipime 2 grams IV every 12 hours Doxycycline 100 mg PO daily until June 03, suppressive treatment Merrem 1,000 mg IV every 12 Hours Rocephin 2 gm IV every 24 Hours until 01/02/2020 Ancef 2,000 mg IV Current culture: 07/12/2020 Right great toe, aerobic culture: Normal chalino after 48 hours. Dressings: Right great toe: Kb Right leg: Kerlix, zechariah. documented in this encounter* Lin Justice RN - 08/09/2020 12:15 PM EST Surgical mask and gloves, and eyewear worn while in exam room with patient. Patient wearing mask at all times while staff in the room. * Paola Guallpa PSA - 08/09/2020 7:45 AM EST Patient called today for COVID-19 screening regarding upcoming appointment in wound clinic. Pt did not answer. Message was left stating to call wound clinic if any of these answers are yes. Have you been in close contact with anyone confirmed to have coronavirus/COVID- 19 in the past 14 days? NO Have you traveled out of state or internationally in the past 14 days? NO In the last 24 hours have you had any of the following symptoms? Fever over 100 F NO Cough NO Shortness of breath or difficulty breathing NO Chills or repeated shaking with chills NO Muscle pain, headache, or sore throat NO Any loss of taste or smell NO Diarrhea NO Patient was reminded at this time wound clinic is not allowing visitors for social distancing purposes. Patient was informed of new procedure to gain access to wound clinic. * Phoebe Duncan RN - 08/09/2020 7:45 AM EST Date: 08/09/2020 New labs/ results as of last note: 08/02/2020 I have personally reviewed all labs and other results. Labs and additional results reviewed: 08/02/2020 X-ray right tib/fib FINDINGS: Intramedullary tommy is noted in the tibial shaft. Additional screws and pins are noted in hindfoot. The hardware appears intact. Resection of the distal fibula is again noted. There is the transverse fracture through the distal tibial shaft that is new from the prior study. IMPRESSION: New acute fractures in the distal tibial shaft. 08/02/2020 X-ray right ankle FINDINGS: RIGHT TIBIA FIBULA: Retrograde intramedullary tommy through the calcaneus, talus extending to the mid tibia with a singleproximal tibial screw redemonstrated. Separate retrograde orthopedic screw extending through the calcaneus, talus and to the distal tibia. There is a new acute transverse fracture involving the [id number] diaphyseal shaft of the tibia surrounding the intact intramedullary tommy. Additional lag screw through the calcaneus. Resection of the distal fibula redemonstrated. Some mild generalized soft tissue edema. RIGHT ANKLE: Orthopedic changes about the proximal foot redemonstrated as described above. Severe degenerative changes of the visualized midfoot. Prominent inferior and moderate superior calcaneal spur redemonstrated. Some bony fragmentation along the lateral aspect of the ankle and some ossification along the plantar fascial region redemonstrated. Soft tissue edema about the ankle. IMPRESSION: 1. New acute transverse fracture involving the distal diaphyseal shaft is in good alignment and surrounds an intact retrograde intramedullary tommy extending through the calcaneus, talus into the mid tibial region with a single proximal tibial screw. 2. Stable orthopedic fixation of the ankle as described above. 3. Prior resection of the distal fibula redemonstrated. 4. Some mild soft tissue edema of the lower extremity including the ankle. GJT/ges Update from previous note Current culture: 08/02/2020 Right leg, aerobic culture: Normal chalino after 48 hours. Current Antibiotics: Doxycycline 100 mg po Daily through 10/2020 Previous Antibiotics: Maxipime 2 grams IV every 12 hours Doxycycline 100 mg PO daily until June 03, suppressive treatment Merrem 1,000 mg IV every 12 Hours Rocephin 2 gm IV every 24 Hours until 01/02/2020 Ancef 2,000 mg IV Dressings: Right leg: Cellerate and bacitracin Right great toe: Kb * Maria Isabel Awad MD - 08/09/2020 7:45 AM EST CONSULT NOTE 05/02/2020 Patient Name: Dyllan Huertas Admit Date: MR #: [id number] : 1960 Physicians: Rohit Aguilar MD (Family); No ref. 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 antibiotic Will need to watch very closely for any recurrence of infection and treat aggressively if indicatedin the future May 10 New blister of the right great toe Postop wound of the right ankle from surgery in May 01, 2020 May 24 Right foot postop wound is clean no drainage no cellulitis Enterobacter and gram-negative June 07 Postop wound is healed up Right great toe superficial ulceration no evidence of cellulitis right now Last CRP 7 and sed rate 37 #9 July Plantar foot wound is healed and stayed healed Toe ulcer is clean August 02, 2020 Right foot ulcer healed Right foot Charcot with hardware placed May 01, 2020 Right anterior leg area wound with trauma with a step no kali ulceration x-ray done by Dr. Archer was negative for any fracture Tiny blisters if at all any August 09 Right toe ulcer healed Right leg blisters healed Hardware right foot with right foot ulcer on long-term suppressive antibiotic treatment Right leg x-ray negative for fracture right foot x-ray with hardware and a fracture I would leave that up to Dr. Mora Recommend August 09 Doxycycline 100 mg p.o. per day till October 2020 Patient has one refill Return to see me in 2 weeks We'll order a CBC CMP sed rate CRP while he is on long-term suppressive treatment can be drawn at one of his next visits here put the order in the computer Dressing per Dr. Mora to the right great toe August 02 Doxycycline 100 g p.o. per day till October 2020 Right anterior leg area with tiny blisters I need to culture because he has hardware in the ankle we want to be very aggressive with any antibiotic management Consider Triad to the right anterior leg area I would leave it up to Dr. Mora Return to see me next week with Dr. Mora July 12 Doxycycline 100 g p.o. once a day suppressive treatment till October [address] Mora Culture the right toe today Readjust antibiotics if needed June 07 Doxycycline decreased to 100 mg p.o. per day We will go with suppressive treatment although wait till October 2020 which will be 6 months postopand if we need to go longer will go up to 1 year total Local dressings per Dr. Mora I will see him in [address] Mora I have discussed this with the patient as well as podiatry May 24 Doxycycline 100 g p.o. twice daily continue for now till June 18 After that we will cut it down to 1 tablet of doxycycline per day for long-term suppressive treatment may need to go up to November 03, 2020 to make it 6 months postop I looked at the films with Dr. Mora from last time Cast per Dr. Mora I will see him in 2 weeks X-ray per Dr. Mora today Labs will be done today here May 10 Cast was changed by podiatry today incision looks good without any evidence of secondary infection Doxycycline 100 mg p.o. twice a day continued for total of 1 month he has enough Revisit 2 weeks May 03 Discontinue the order for PICC line Discontinue IV cefepime P.o. doxycycline 100 mg twice daily for 30 days Follow-up in the wound clinic on Wednesdays with myself and Dr. Mora Any dressing orders will be per I have discussed with the patient as well as hospitalist May 02 PICC line placement Cefepime 2 g IV every 12 Follow-up current OR cultures however with the extent of infection he had before it would be prudent to give prolonged IV for now hardware would be at risk for infection CBC CMP sed rate CRP blood cultures x2 half an hour apart [employer]NA[employer] to be sent today I have discussed with the hospitalist Chief Complaint/Reason for Visit: I am seeing this patient at the request of Dr. Emilie MD. I have reviewed the current hospital record, available laboratory, cardiology and imaging studies as well as available out patient records. History of Present Illness: Admission H&P by Ramírez Damico CNP on 05/01/2020: Dyllan Huertas is a 59 y.o. male with history of IDDM and neuropathy presents for status post right ankle arthrodesis. Dr. Mora performed the procedure today. Patient laid on bed without complaint. Patient is afebrile, vitals are stable. Patient will be on antibiotics and continue home meds. 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 doxycycline suppressive treatment for Enterobacter cloaca infection he also received Rocephinat one point eventually on May 01, 2020 patient underwent extensive surgery to the 7-hour surgery by Dr. Mora which was right foot arthrodesis subtalar arthrodesis right ankle which is corrective surgery for his Charcot and infectious disease consult for further help with antibiotic management Past medical surgical social family history nobody with boils all his details of previous history is in the notes He was a long-term suppressive treatment with doxycycline He is a chronic Schulte catheter because of nonweightbearing He had done home IV antibiotics in the past The Enterobacter cloaca he was [place] Allergy Information: I have reviewed the patient's allergies. Patient has no known allergies. Current Scheduled Meds: PMH/PSH/SH/FH reviewed, no change except: He is in the hospital receiving intravenous antibiotics May [address] Mora she said the approach she took for the surgery was a totally different area than the previous infected area intraoperatively she did not find any evidence of infection the bone was hard Intra-Op cultures were not done at this point based on her information we maynot need prolonged IV antibiotics at the midline order was discontinued and he would continue to maintain p.o. antibiotic to make sure skin soft tissue healing occurs and we will need to follow him in the wound clinic on a regular basis watch closely for any infection Patient also has his brother's today Denies any pain in the right ankle Review of Systems: All systems were reviewed and negative except: No fever chills nausea vomiting diarrhea Medications Reviewed. Chart Reviewed Physical Examination: BP 136/82 Pulse 84 Temp 98.1 F (36.7 C) (Infrared) Resp 16 SpO2 97% Exam Findings: Constitutional: Awake alert answers all question HENT: Pupils reactive head: No oral candidiasis Eyes: No icterus Neck: Supple Cardiovascular: Heart S1-S2 2 by systolic murmur present no S3 Murmur Pulmonary/Chest: Clear Abdominal: Soft Musculoskeletal: No calf tenderness on the right leg he has an Zechariah bandage postop Neurological: Right great toe tip there is a blackish discoloration which will need to watch closely but he does have sensations difficult to move toes in his postop brace Skin no redness or cellulitis n prior to surgery by Dr. Abby Schulte: He is on long-term Schulte catheter because of nonweightbearing is being followed by Dr. Izquierdo he still has a Schulte may come out in July IV: other: He is now status post right ankle arthrodesis by Dr. Mora on 05/01/2020 postop Zechariah bandage in place is able to recall the toes some toes are not discolored they look normal May 10 incision looks good per podiatry at the time of changing the cast May 24 incision looks good. The right great toe eschar is also with good bleeding June 07 postop wound healed up completely right great toe ulcer superficial without cellulitis July 12 the plantar foot wound is healed and stayed healed the great toe ulcer is very superficial clean August 02 right anterior leg tiny blister with trauma against a step Right foot ulcer is healed stayed healed he has hardware there is no redness in the foot right great toe eschar is dry The anterior tibial area we can feel a bump in the bone though there was no fracture August 09 right great toe right anterior leg right plantar foot all wounds healed up hardware right foot on long-term suppressive treatment no cellulitis Wound (Outpatient Only) 03/31/19 Foot Anterior;Right;Plantar (Active) Wound Image 04/26/20 1300 Wound Length (cm) 0 cm 04/26/20 1300 Wound Width (cm) 0 cm 04/26/20 1300 Wound Depth (cm) 0 cm 04/26/20 1300 Wound Surface Area (cm^2) 0 cm^2 04/26/20 1300 Wound Volume (cm^3) 0 cm^3 04/26/20 1300 Area % Change -100 04/26/20 1300 Volume % Change 0 04/26/20 1300 Tunneling Maximum Distance (cm) 0 cm 04/26/20 1300 Tunneling Position (o'clock) 0 04/26/20 1300 Undermining Maximum Distance (cm) 1 0 cm 04/26/20 1300 Undermining Starting Position (o'clock) 1 0 04/26/20 1300 Undermining Ending Position (o'clock) 1 0 04/26/20 1300 Wound Encounter Subsequent 04/26/20 1300 Wound Progress Improving 04/26/20 1300 Non-staged Wound Description Partial thickness 02/09/20 0700 Drainage Amount None 04/26/20 1300 Drainage Description Yellow 02/09/20 0700 Odor None 04/26/20 1300 Wound Margin Attached to wound base 03/01/20 0700 Adherent Yellow Slough % None 04/26/20 1300 Moist Yellow Slough % None 04/26/20 1300 Dry Black Eschar % None 04/26/20 1300 Moist Black Eschar % None 04/26/20 1300 Epithelialization % 76-100% 04/26/20 1300 Granulation % None 04/26/20 1300 Exposed Structure None 04/26/20 1300 Wound Bed Characteristics Clean;Dry;Intact 04/26/20 1300 Wound Closure Sutures 12/28/19 0815 Angeli-wound Assessment Temperature WNL 04/26/20 1300 Treatments Not Applicable 04/26/20 1300 Hemostasis Not applicable 04/26/20 1300 Cleansed Soap and water 04/26/20 1300 Primary Dressing Collagen;Antibiotic ointment / cream 02/09/20 0822 Secondary Dressing Gauze pad;Gauze roll 02/09/20 0822 Compression Dressing Tubilar eleastic bandage 04/26/20 1300 Wound 05/01/20 Surgical Wound Foot Right (Active) Wound Image 05/24/20 0858 Wound 05/10/20 Great Toe Anterior;Right (Active) Wound Image 08/09/20 0746 Wound Length (cm) 0.5 cm 08/02/20 0744 Wound Width (cm) 1.5 cm 08/02/20 0744 Wound Depth (cm) 0.1 cm 07/12/20 08 Wound Surface Area (cm^2) 0.75 cm^2 08/02/20 0744 Wound Volume (cm^3) 0.03 cm^3 07/12/20 08 Area % Change 134.38 08/02/20 0744 Drainage Amount None 08/09/20 0746 Drainage Description Serosanguineous 07/05/20 0832 Odor None 08/02/20 0744 Wound Margin Attached to wound base 08/02/20 0744 Adherent Yellow Slough % None 08/02/20 0744 Moist Yellow Slough % None 08/02/20 0744 Dry Black Eschar % None 08/02/20 0744 Moist Black Eschar % None 08/02/20 0744 Epithelialization % 76-100% 08/09/20 0746 Granulation % 76-100%;[place] 07/12/20 0805 Exposed Structure None 07/12/20 08 Wound Bed Characteristics Dry;Intact;Brown;[place] 08/02/20 0744 Cleansed Soap and water 08/09/20 0746 Primary Dressing Collagen 08/02/20 1000 Secondary Dressing Foam 08/02/20 1000 Compression Dressing Zechariah wrap 08/02/20 1000 Wound 08/02/20 Pre-tibial Right (Active) Wound Image 08/09/20 0746 Wound Progress Initial exam 08/02/20 0745 Cleansed Soap and water 08/02/20 0745 I have personally reviewed the labs and results Test results Laboratory and Additional Data Reviewed: Date: 08/09/2020 New labs/ results as of last note: 08/02/2020 I have personally reviewed all labs and other results. Labs and additional results reviewed: 08/02/2020 X-ray right tib/fib FINDINGS: Intramedullary tommy is noted in the tibial shaft. Additional screws and pins are noted in hindfoot. The hardware appears intact. Resection of the distal fibula is again noted. There is the transverse fracture through the distal tibial shaft that is new from the prior study. IMPRESSION: New acute fractures in the distal tibial shaft. 08/02/2020 X-ray right ankle FINDINGS: RIGHT TIBIA FIBULA: Retrograde intramedullary tommy through the calcaneus, talus extending to the mid tibia with a singleproximal tibial screw redemonstrated. Separate retrograde orthopedic screw extending through the calcaneus, talus and to the distal tibia. There is a new acute transverse fracture involving the [id number] diaphyseal shaft of the tibia surrounding the intact intramedullary tommy. Additional lag screw through the calcaneus. Resection of the distal fibula redemonstrated. Some mild generalized soft tissue edema. RIGHT ANKLE: Orthopedic changes about the proximal foot redemonstrated as described above. Severe degenerative changes of the visualized midfoot. Prominent inferior and moderate superior calcaneal spur redemonstrated. Some bony fragmentation along the lateral aspect of the ankle and some ossification along the plantar fascial region redemonstrated. Soft tissue edema about the ankle. IMPRESSION: 1. New acute transverse fracture involving the distal diaphyseal shaft is in good alignment and surrounds an intact retrograde intramedullary tommy extending through the calcaneus, talus into the mid tibial region with a single proximal tibial screw. 2. Stable orthopedic fixation of the ankle as described above. 3. Prior resection of the distal fibula redemonstrated. 4. Some mild soft tissue edema of the lower extremity including the ankle. GJT/ges Update from previous note Current culture: 08/02/2020 Right leg, aerobic culture: Normal chalino after 48 hours. Current Antibiotics: Doxycycline 100 mg po Daily through 10/2020 Previous Antibiotics: Maxipime 2 grams IV every 12 hours Doxycycline 100 mg PO daily until June 03, suppressive treatment Merrem 1,000 mg IV every 12 Hours Rocephin 2 gm IV every 24 Hours until 01/02/2020 Ancef 2,000 mg IV Dressings: Right leg: Cellerate and bacitracin Right great toe: Kb Date: 08/02/2020 No new labs/ results as of last note: 07/12/2020 X-rays right leg taken 07/24/[address] Archer's [place] office. Per patient, Dr. Archer told him Update from previous note Current Antibiotics: Doxycycline 100 mg po Daily through 10/2020 Previous Antibiotics: Maxipime 2 grams IV every 12 hours Doxycycline 100 mg PO daily until June 03, suppressive treatment Merrem 1,000 mg IV every 12 Hours Rocephin 2 gm IV every 24 Hours until 01/02/2020 Ancef 2,000 mg IV Current culture: 07/12/2020 Right great toe, aerobic culture: Normal chalino after 48 hours. Dressings: Right great toe: Kb Right leg: Kerlix, zechariah. Date: 06/07/2020 New labs/ results as of last note: 05/24/2020 Labs and other data reviewed: CBC Auto Differential Component Ref Range & Units 12d ago (05/24/20) 1mo ago (05/03/20) 1mo ago (05/02/20) 1mo ago (05/01/20) 1mo ago (04/26/20) 3mo ago (02/09/20) 5mo ago (12/28/19) WBC 4.50 - 11.00 K/mcL 4.09Low 6.78 8.37 6.59 6.01 4.66 RBC 4.50 - 5.90 M/mcL 3.80Low 3.46Low 3.58Low 4.91 4.53 4.42Low Hemoglobin 13.5 - 17.5 g/dL 10.8Low 9.8Low 10.3Low 12.6Low 14.0 12.1Low 11.6Low Hematocrit 41.0 - 53.0 % 32.4Low 30.0Low 30.8Low 37.8Low 42.4 38.2Low 38.0Low MCV 80.0 - 100.0 fL 85.3 86.7 86.0 86.4 84.3 86.0 MCH 26.0 - 34.0 pg 28.4 28.3 28.8 28.5 26.7 26.2 MCHC 31.0 - 37.0 g/dL 33.3 32.7 33.4 33.0 31.7 30.5Low Platelets 150 - 400 K/mcL 169 139Low 163 230 196 182 Comprehensive Metabolic Panel Component Ref Range & Units 12d ago (05/24/20) 1mo ago (05/03/20) 1mo ago (05/02/20) 1mo ago (05/01/20) 3mo ago (02/09/20) 5mo ago (12/28/19) 5mo ago (12/18/19) Sodium 135 - 145 mmol/L 141 138 140 142 142 142 142 Potassium 3.5 - 5.1 mmol/L 4.2 4.3 5.1 4.4 4.3 4.3 4.5 Chloride 98 - 108 mmol/L 110High 106 106 110High 109High 109High 106 Bicarbonate 21 - 32 mmol/L 26 27 28 27 28 31 25 Anion Gap 10 - 20 mmol/L 9Low 9Low 11 9Low 9Low 6Low 16 Glucose 65 - 99 mg/dL 171High 157High 262High 114High 205High 135High 82 BUN 8 - 25 mg/dL 17 29High 22 16 22 18 23 Creatinine 0.50 - 1.30 mg/dL 0.84 1.42High 1.51High 0.94 0.94 0.71 1.04 eGFR >=60 mL/min/1.73 m2 97 54Low 51Low 90 90 104 79 BUN/Creatinine Ratio 10.0 - 20.0 20.2High 20.4High 14.6 17.0 23.4High 25.4High 22.1High Total Protein 6.0 - 8.0 g/dL 6.6 6.3 6.9 7.0 7.2 Albumin 3.2 - 5.2 g/dL 3.2 3.0Low 3.5 3.1Low 3.0Low Calcium 8.4 - 10.2 mg/dL 9.3 8.1Low 8.3Low 9.1 9.2 9.2 9.6 Alkaline Phosphatase 40 - 150 U/L 95 52 72 93 94 AST 0 - 45 U/L 14 11 14 16 20 Total Bilirubin 0.0 - 1.3 mg/dL 0.3 0.3 0.3 0.4 0.3 ALT 14 - 65 U/L 21 11Low 19 19 27 CRP, Inflammation Component Ref Range & Units 12d ago (05/24/20) 1mo ago (05/03/20) 3mo ago (02/09/20) 5mo ago (12/28/19) 5mo ago (12/18/19) 5mo ago (12/12/19) 6mo ago (12/05/19) CRP(Inflammation) <=10.0 mg/L 7.0 92.3High 5.7 6.4 18.7High 52.4High 85.3High Sedimentation Rate Order: [id number] Status: Final result Visible to patient: No (not released) Next appt: 06/07/2020 at 08:30 AM in Wound Care (Maria Isabel Awad MD) Dx: Elevated C-reactive protein (CRP); El... Component Ref Range & Units 12d ago (05/24/20) 1mo ago (05/03/20) 1mo ago (04/26/20) 3mo ago (02/09/20) 5mo ago (12/28/19) 5mo ago (12/18/19) 5mo ago (12/12/19) Sed Rate 0 - 20 mm/hr 36High 45High 23High 24High 33High 72High 91High 05/24/2020 X-Ray Right ankle IMPRESSION: Postsurgical changes without acute osseous abnormality. 05/24/2020 X-Ray Right Foot IMPRESSION: Postsurgical changes without acute osseous abnormality. Update from previous note Current Antibiotics: Doxycycline 100 mg PO BID through 06/18/2020, then one tablet daily for 6 months. Previous Antibiotics: Maxipime 2 grams IV every 12 hours Doxycycline 100 mg PO daily until June 03, suppressive treatment Merrem 1,000 mg IV every 12 Hours Rocephin 2 gm IV every 24 Hours until 01/02/2020 Ancef 2,000 mg IV Update from previous note Current Cultures: 05/02/2020 Urine Aerobic Culture: No Growth. Final. 05/02/2020 Blood Culture #2: In Progress; No Growth after 5 days. Final. 05/02/2020 Blood Culture #1: In Progress; No Growth after 5 days. Final. Dressings: per Dr. Mora Right great toe: Betadine, DSD Right lower extremity: Cast Date: 05/24/2020 No new labs/ results as of last note: 05/10/2020 Update from previous note Current Antibiotics: Doxycycline 100 mg PO BID. Last day 06/02/2020. Previous Antibiotics: Maxipime 2 grams IV every 12 hours Doxycycline 100 mg PO daily until June 03, suppressive treatment Merrem 1,000 mg IV every 12 Hours Rocephin 2 gm IV every 24 Hours until 01/02/2020 Ancef 2,000 mg IV Update from previous note Current Cultures: 05/02/2020 Urine Aerobic Culture: No Growth. Final. 05/02/2020 Blood Culture #2: In Progress; No Growth after 5 days. Final. 05/02/2020 Blood Culture #1: In Progress; No Growth after 5 days. Final. Dressing: Per Dr. Mora Date: 05/10/2020 No new labs/ results as of last note: 05/03/2020 Current Antibiotics: Doxycycline 100 mg PO BID Previous Antibiotics: Maxipime 2 grams IV every 12 hours Doxycycline 100 mg PO daily until June 03, suppressive treatment Merrem 1,000 mg IV every 12 Hours Rocephin 2 gm IV every 24 Hours until 01/02/2020 Ancef 2,000 mg IV Update from previous note Current Cultures: 05/02/2020 Urine Aerobic Culture: No Growth. Final. 05/02/2020 Blood Culture #2: In Progress; No Growth after 5 days. Final. 05/02/2020 Blood Culture #1: In Progress; No Growth after 5 days. Final. Dressing: Per Dr. Mora Date: 05/03/2020 New labs/results as of last note Update from previous note Tmax: 98.8 Urine Output: 700 Stool: not recorded Current Antibiotics: Maxipime 2 gm IV every 12 Hours Previous Antibiotics: Doxycycline 100 mg PO daily until June 03, suppressive treatment Merrem 1,000 mg IV every 12 Hours Rocephin 2 gm IV every 24 Hours until 01/02/2020 Ancef 2,000 mg IV I have personally reviewed the labs and results Test results Laboratory and Additional Data Reviewed: Labs: CBC 05/03/2020 03:54 WBC: 6.78 RBC: 3.46 Hgb: 9.8 Hct: 30.0 Platelets: 139 Lymphocytes Abs: 0.89 Monocytes Abs: 0.91 CMP 05/03/2020 03:54 Glucose: 157 BUN: 29 Creatinine: 1.42 Sodium: 138 Potassium: 4.3 Total Protein: 6.3 Albumin: 3.0 Calcium: 8.1 Alk Phos: 52 AST: 11 ALT: 11 Total Bilirubin: 0.3 CRP 05/03/2020 03:54 92.3 Sed Rate 05/03/2020 03:54 45 U/A 05/02/2020 18:46 Clarity: Cloudy Specific [place]: 1.031 Protein: 100 Ketones: Trace Blood: Small Leukocyte Esterase: Large WBCS: 84 RBCS: 16 Bacteria: Many WBC Clumps: Many Hyaline Casts: 11-20 Amorphous Crystals: Few Mucus: Rare Current Cultures: 05/02/2020 Urine Aerobic Culture: No Growth, Incubation Continued. Preliminary. 05/02/2020 Blood Culture #2: In Progress; No Growth to Date. Preliminary. 05/02/2020 Blood Culture #1: In Progress; No Growth to Date. Preliminary. 04/28/2020 COVID-19, Molecular SARS-CoV-2 RNA: Not Detected. Final. Radiology: Right Ankle X-Ray 05/02/2020 FINDINGS: Fourteen spot fluoroscopic images were obtained in the operating room. Fluoroscopic technique limits osseous and soft tissue detail. Images demonstrate hindfoot and ankle joint arthrodesis with tibial intramedullary tommy extending through the calcaneus and talus. An additional cannulated lag screw is present on the final images, and a transcalcaneal fixation hardware is present. There is a proximal interlocking screw. A distal fibular osteotomy is present. Alignment appears anatomic. IMPRESSION: Spot fluoroscopic images obtained during right ankle arthrodesis. Please see dictated operative report for full details. Chest X-Ray 04/26/2020 ORDERED Current antibiotic received preop Ancef Previous Antibiotics: Doxycycline 100 mg PO daily until June 03, suppressive treatment Merrem 1,000 mg IV every 12 Hours Rocephin 2 gm IV every 24 Hours until 01/02/2020 Ancef 2,000 mg IV Invalid input(s): CO2 Current Cultures: 04/28/2020 COVID-19, Molecular SARS-CoV-2 RNA: Not Detected. Final. Recent Cultures: 12/28/2019 - Right foot, aerobic culture: Normal Chalino after 48 hours. 12/21/2019 - Right foot, aerobic - normal chalino after 48 hours 12/21/2019 - Right foot, anaerobic: No anaerobic growth at 2 days. 12/10/2019 Right Foot Wound Aerobic Culture: Normal Chalino After 48 Hours. Final 12/10/2019 Right foot wound, anaerobic culture: No anaerobic growth at 2 days. Final 12/08/2019 Urine Aerobic Culture: No Growth (<1,000 CFU/mL). Final. 12/07/2019 Urine Aerobic Culture on arrival to Nursing Rehab Unit: No Growth (<1,000 CFU/mL). Final. 12/02/2019 Right Foot Tissue Aerobic Culture: Normal Chalino After 48 Hours. Final. 12/02/2019 Right Foot Tissue AFB Culture: No Acid Fast Bacilli after 8 weeks. Final. 12/02/2019 Right Foot Tissue Anaerobic Culture: No Anaerobic Growth at 2 Days. Final. 12/02/2019 Right Foot Tissue Fungus Culture: No fungus isolated at 4 weeks. Final. 12/01/2019 Blood Culture #1: No Growth After 5 Days. Final. 12/01/2019 Blood Culture #2: No Growth After 5 Days. Final. 11/30/2019 Right Foot Wound Aerobic Culture: Normal Chalino After 48 Hours. Final. 11/21/2019 Left Leg Wound Aerobic Culture: Normal Chalino After 24 Hours. Final. 11/20/2019 Right Foot Tissue Aerobic Culture: Moderate Growth Enterobacter cloacae complex, S=Youssef Sensitive. Final. 11/20/2019 Right Foot Tissue Anaerobic Culture: No Anaerobic Growth at 2 Days. Final. 11/20/2019 Right Foot Bone Aerobic Culture: Light Growth Enterobacter Cloacae Complex, S=Youssef Sensitive. Final. 11/20/2019 Right Foot Bone Anaerobic Culture: No Anaerobic Growth at 2 Days. Final. 05/30/2019 Right Foot Tissue Aerobic Culture: Normal Chalino After 48 Hours. Final. 05/30/2019 Right Foot Tissue Anaerobic Culture: No Anaerobic Growth at 2 Days. Final. 03/23/2019 Right Foot Wound Aerobic Culture: Heavy Growth Raoultella [place], R=Ampicillin, S=Remainder of panel. 03/09/2019 Right Foot Wound Aerobic Culture: Normal Chalino After 48 Hours. Final. 02/09/2019 Right Foot Wound Aerobic Culture: Normal Chalino After 48 Hours. Final. 01/19/2019 Right Toe Two Wound Aerobic Culture: Heavy Growth Enterobacter Cloacae Complex, S=Youssef Sensitive. Final. Radiology: Right Ankle X-Ray 05/02/2020 ORDERED Right Tib/Fib X-Ray 05/01/2020 1. Fusion of the tibia, talus, and calcaneus. Alignment is anatomic. There has been resection of the lateral malleolus. Right Ankle X-Ray 05/01/2020 FINDINGS: Images are obtained with the right ankle in a splint which obscures bony detail. There is interval resection of the distal right fibula. Internal fixation of the right ankle is seen with intramedullary tommy seen in the right tibia traversing the tibiotalar joint. Additional smaller surgical screw isseen traversing the tibiotalar joint. Internal fixation of the calcaneus is also seen with metallicrod. Ankle and calcaneal fractures demonstrate normal alignment. Large plantar calcaneal spur is seen. Advanced degenerative changes are seen about the mid foot. Mild diffuse bony demineralization isseen. IMPRESSION: Images are obtained with the right ankle with in a splint which obscures bony detail. Postsurgical changes are seen, as detailed above with normal alignment. Right Tib/Fib X-Ray 05/01/2020 Status post removal of the external fixator with no acute osseous abnormality in the right tibia orfibula or right ankle. Right Foot X-Ray 05/01/2020 1. Prior external fixator replacement. Extensive deformity in the midfoot related to prior surgicalresection or Charcot changes. Continued subluxation between talus and navicular. 2. 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 Chest X-Ray 04/26/2020 ORDERED Right Foot X-Ray 11/20/2019 IMPRESSION: Intraoperative fluoroscopy for localization during right foot and ankle reconstruction and fixation. Please see operative report for details. Left Ankle X-Ray Ordered 11/20/2019 Right Tib/Fib,Right Foot X-Ray 02/16/2020 FINDINGS: There is extensive hardware from an external fixator present. This obscures fine bony detail.A single percutaneous pin is seen entering the plantar aspect of the foot through the calcaneus, talus, and entering the distal tibia. A 2nd slightly larger metallic tommy is seen entering the posterior calcaneus extending into the talus. Degenerative changes are present in the midfoot. There is soft tissue edema. IMPRESSION: Study is limited due to overlying external fixator. No significant change in alignment. NM White Cell Scan Spot Limited 03/08/2017 FINDINGS: A focal area of intense abnormal white blood cell migration is noted central plantar aspect of the right foot corresponding to the area of the wound demonstrated radiographically. No other focus of white blood cell migration abnormality is evident within the right or left foot. IMPRESSION: Focal area of abnormal white blood cell migration at the plantar aspect central right foot may be at the wound itself or may be involving the bone with associated fracture as demonstrated radiographically. Anatomic detail is insufficient for differentiation between the two. Renal U/S 03/07/2017 IMPRESSION: Severe thickening of the urinary bladder wall. This could be due to outlet obstruction with hypertrophy of the wall. If there is no such history, this should be evaluated with cystoscopy. CVPS: Lower Arterial Doppler: not on file Lower Venous Doppler: not on file 2D Echo 11/23/2019 Moderate LV enlargement with LVH. Global systolic dysfunction with segmental features. LVEF 30% Elevated LV filling pressures RV is dilated with severe RV dysfunction Mild mitral annular calcification, mild thickening of the aortic valve without hemodynamically significant valvular disease There is a atrial level right to left shunt identified with saline contrast with free breathing andValsalva most likely via PFO LVEF unchanged from to previous echo from 2017 Surgeries: Please see above for surgical history Procedure: RIGHT ANKLE ARTHRODESIS, SUBTALAR ARTHRODESIS RIGHT ANKLE, Bone [place] Graft From RightFibula, Application of Splint Date: 05/01/2020 Alena Mora DPM Procedure: RIGHT FOOT RECONSTRUCTION WITH APPLICATION OF CIRCULAR STATIC EXTERNAL FIXATION Date: 11/20/2019 Surgeon: Alena Mora DPM Procedure: ARTHROPLASTY 2ND TOE RIGHT FOOT Date: 01/25/2019 Surgeon: Rosa M Robles DPM Pathology: 12/02/2019 A. Soft tissue, Right Foot, excision: Non-specific ulcer. * Richelle Chance RN - 08/09/2020 7:43 AM EST Nurse wore gloves and mask while taking care of patient. Patient wearing mask at all times while staff in the room. documented in this encounter* Yaneth Knapp, RN - 08/09/2020 10:41 AM EST Call received from Kimberly in lab d/t glucose level of 46. This was part of patient's lab draw this morning in a chemistry order set. Patient has already left clinic. Dr Mora informed and requested that patient be called. Called patient, unable to reach, message left to call back wound care. * Lin Justice RN - 08/09/2020 10:21 AM EST Surgical mask and gloves, and eyewear worn while in exam room with patient. Patient wearing mask at all times while staff in the room. Cast applied per Dr Mora * AbbyAlena, DPM - 08/09/2020 8:39 AM EST Subjective: Patient is a pleasant 59-year-old male who presents to the wound care center 3 months status post ankle joint and subtalar joint arthrodesis via intramedullary nail fixation in treatment for his Charcot neuroarthropathy. Patient states that he is doing well. He has been NWB in the cam boot and using wheel chair. Denies any pain to his right leg. Patient reports that his right great toe wound is improving. Denies any redness, swelling, or drainage. No other pedal complaints at this time.Denies fevers, chills, nausea, vomiting, chest pain, shortness of breath, or any other constitutional symptoms. Objective: Vascular: DP and PT pulses are palpable. Cap refill time is brisk to distal digits. Skin temperature is warm to warm from proximal tibial tuberosity to distal digits. Neuro: Gross sensation is intact. Protective sensation is absent. Derm: Surgical incision sites are well healed. No angeli-incisional erythema, edema, dehiscence or any acute signs of infection. The previously noted right great toe has now healed. No surrounding erythema, edema, drainage, or any acute signs of infection. Musculoskeletal: Compartments are soft and compressible. No calf pain. Assessment: 2 weeks non-displaced distal tibial fracture, right - Stable 3 months status post ankle and subtalar joint arthrodesis via IM nail fixation, right lower extremity (Dr. Mora) doing well Full thickness ulceration right great toe - Healed! Plan: Patient was seen and evaluated. Discussed all clinical and radiographic findings. Previous radiographs obtained showing interval osseous consolidation across ankle and subtalar joints. Hardware is intact without any signs of failure or lucency. New radiographs obtained showing a distal tibial fracture at the half-pin site. Fracture is a non-displaced with an intact IMN spanning the fracture site. All incisions are clean and dry without any sign of infection. Patient's prior right great toe ulcer is now healed. No need for any additional debridement. At this time, since his wound is healed, I will go ahead and place him in a below knee cast. Patient is to maintain NWB to right lower extremity. Follow-up in the wound care center in 2 weeks Alena Mora DPM, MSBS Podiatric Physician and Surgeon documented in this encounter* Alena Mora DPM - 08/23/2020 8:07 AM EST Associated Order(s): Wound Debridement Subjective: Patient is a pleasant 59-year-old male who presents to the wound care center 3.5 months status postankle joint and subtalar joint arthrodesis via intramedullary nail fixation in treatment for his Charcot neuroarthropathy. Patient states that he is doing well. He has been NWB in the short leg cast and using wheel chair. Denies any pain to his right leg. Patient reports that his right great toe wound may have opened up again. Denies any redness, swelling, or drainage. No other pedal complaints at this time.Denies fevers, chills, nausea, vomiting, chest pain, shortness of breath, or any other constitutional symptoms. Objective: Vascular: DP and PT pulses are palpable. Cap refill time is brisk to distal digits. Skin temperature is warm to warm from proximal tibial tuberosity to distal digits. Right leg swelling at the site of fracture has resolved. Neuro: Gross sensation is intact. Protective sensation is absent. Derm: A small full thickness ulceration noted to the right great toe measuring 0.3 x 0.2 x 0.1 cm. No surrounding erythema, edema, dehiscence or any acute signs of infection. All surgical incision sites are well healed. No surrounding erythema, edema, drainage, or any acute signs of infection. Small skin tear to third toe. Musculoskeletal: Compartments are soft and compressible. No calf pain. Assessment: 4 weeks non-displaced distal tibial fracture, right - Stable 3.5 months status post ankle and subtalar joint arthrodesis via IM nail fixation, right lower extremity (Dr. Mora) doing well Full thickness ulceration right great toe - re-opened! Plan: Patient was seen and evaluated. Discussed all clinical and radiographic findings. New radiographs obtained today showing callous formation across the tibial fracture site with IMN spanning the fracture site. Interval osseous consolidation across ankle and subtalar joints. Hardwareis intact without any signs of failure or lucency. Patient's prior right great toe ulcer is has reopened necessitating debridement to remove nonviablesoft tissue and biofilm to expedite healing. See procedure below. Kb applied to right great toe. A new short below knee cast was applied. Patient is to maintain NWB to right lower extremity. Follow-up in the wound care center in 2 weeks Alena Mora DPM, MSBS Podiatric Physician and Surgeon Debridement Consent obtained? verbal Consent given by: patient Risks discussed? procedural risks discussed Immediately prior to the procedure a time out was called Performed by: physician Debridement type: surgical Level of debridement: subcutaneous tissue Post-debridement measurements Length (cm): 0.3 Width (cm): 0.2 Depth (cm): 0.1 Percent debrided: 100% Surface Area (cm^2): 0.06 Area debrided (cm^2): 0.06 Volume (cm^3): 0.01 Tissue and other material debrided: subcutaneous tissue Devitalized tissue debrided: biofilm and slough Instrument(s) utilized: curette Bleeding: small Hemostasis obtained with: pressure Procedural pain (0-10): insensate Post-procedural pain: insensate Response to treatment: procedure was tolerated well documented in this encounter* Lin Justice RN - 09/06/2020 9:39 AM EST Surgical mask and gloves, and eyewear worn while in exam room with patient. Patient wearing mask at all times while staff in the room. With NC in full ppe * Nelda Gilliam RN - 09/06/2020 9:02 AM EST Surgical mask and gloves were worn while in this patient's room. Patient wearing mask at all times while staff in the room. * Paola Guallpa PSA - 09/06/2020 8:15 AM EST Patient called today for COVID-19 screening regarding upcoming appointment in wound clinic. Have you been in close contact with anyone confirmed to have coronavirus/COVID- 19 in the past 14 days? No Have you traveled out of state or internationally in the past 14 days? No In the last 24 hours have you had any of the following symptoms? Fever over 100 F No Cough No Shortness of breath or difficulty breathing No Chills or repeated shaking with chills No Muscle pain, headache, or sore throat No Any loss of taste or smell No Diarrhea No Patient was reminded at this time wound clinic is not allowing visitors for social distancing purposes. Patient was informed of new procedure to gain access to wound clinic. * Maria Isabel Awad MD - 09/06/2020 8:15 AM EST CONSULT NOTE 05/02/2020 Patient Name: Dyllan Huertas Admit Date: MR #: [id number] : 1960 Physicians: Rohit Aguilar MD (Family); No ref. 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 antibiotic Will need to watch very closely for any recurrence of infection and treat aggressively if indicatedin the future May 10 New blister of the right great toe Postop wound of the right ankle from surgery in May 01, 2020 May 24 Right foot postop wound is clean no drainage no cellulitis Enterobacter and gram-negative June 07 Postop wound is healed up Right great toe superficial ulceration no evidence of cellulitis right now Last CRP 7 and sed rate 37 #9 July Plantar foot wound is healed and stayed healed Toe ulcer is clean August 02, 2020 Right foot ulcer healed Right foot Charcot with hardware placed May 01, 2020 Right anterior leg area wound with trauma with a step no kali ulceration x-ray done by Dr. Archer was negative for any fracture Tiny blisters if at all any August 09 Right toe ulcer healed Right leg blisters healed Hardware right foot with right foot ulcer on long-term suppressive antibiotic treatment Right leg x-ray negative for fracture right foot x-ray with hardware and a fracture I would leave that up to Dr. Mora August 23 Right toe ulcers are clean Foot ulcer healed Postop wound healed up completely No redness noted Lab work done CRP was less than 2.9 sed rate 32 his glucose was 46 was addressed #4 September Right leg ulcers have healed Right foot wound has healed and stayed healed xray with continued healing but not complete Recommend September for Doxycycline 100 g p.o. once a day till October 2020 I will see him in [address] Mora August 23 Doxycycline 100 g p.o. once a day till October 2020 He does have [address] Mora Return to see me in [address] Mora August 09 Doxycycline 100 mg p.o. per day till October 2020 Patient has one refill Return to see me in 2 weeks We'll order a CBC CMP sed rate CRP while he is on long-term suppressive treatment can be drawn at one of his next visits here put the order in the computer Dressing per Dr. Mora to the right great toe August 02 Doxycycline 100 g p.o. per day till October 2020 Right anterior leg area with tiny blisters I need to culture because he has hardware in the ankle we want to be very aggressive with any antibiotic management Consider Triad to the right anterior leg area I would leave it up to Dr. Mora Return to see me next week with Dr. Mora July 12 Doxycycline 100 g p.o. once a day suppressive treatment till October [address] Mora Culture the right toe today Readjust antibiotics if needed June 07 Doxycycline decreased to 100 mg p.o. per day We will go with suppressive treatment although wait till October 2020 which will be 6 months postopand if we need to go longer will go up to 1 year total Local dressings per Dr. Mora I will see him in [address] Mora I have discussed this with the patient as well as podiatry May 24 Doxycycline 100 g p.o. twice daily continue for now till June 18 After that we will cut it down to 1 tablet of doxycycline per day for long-term suppressive treatment may need to go up to November 03, 2020 to make it 6 months postop I looked at the films with Dr. Mora from last time Cast per Dr. Mora I will see him in 2 weeks X-ray per Dr. Mora today Labs will be done today here May 10 Cast was changed by podiatry today incision looks good without any evidence of secondary infection Doxycycline 100 mg p.o. twice a day continued for total of 1 month he has enough Revisit 2 weeks May 03 Discontinue the order for PICC line Discontinue IV cefepime P.o. doxycycline 100 mg twice daily for 30 days Follow-up in the wound clinic on Wednesday with myself and Dr. Mora Any dressing orders will be per I have discussed with the patient as well as hospitalist May 02 PICC line placement Cefepime 2 g IV every 12 Follow-up current OR cultures however with the extent of infection he had before it would be prudent to give prolonged IV for now hardware would be at risk for infection CBC CMP sed rate CRP blood cultures x2 half an hour apart [employer] to be sent today I have discussed with the hospitalist Chief Complaint/Reason for Visit: I am seeing this patient at the request of Dr. Emilie MD. I have reviewed the current hospital record, available laboratory, cardiology and imaging studies as well as available out patient records. History of Present Illness: Admission H&P by Ramírez Damico CNP on 05/01/2020: Dyllan Huertas is a 59 y.o. male with history of IDDM and neuropathy presents for status post right ankle arthrodesis. Dr. Mora performed the procedure today. Patient laid on bed without complaint. Patient is afebrile, vitals are stable. Patient will be on antibiotics and continue home meds. 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 doxycycline suppressive treatment for Enterobacter cloaca infection he also received Rocephinat one point eventually on May 01, 2020 patient underwent extensive surgery to the 7-hour surgery by Dr. Mora which was right foot arthrodesis subtalar arthrodesis right ankle which is corrective surgery for his Charcot and infectious disease consult for further help with antibiotic management Past medical surgical social family history nobody with boils all his details of previous history is in the notes He was a long-term suppressive treatment with doxycycline He is a chronic Schulte catheter because of nonweightbearing He had done home IV antibiotics in the past The Enterobacter cloaca he was Penson Allergy Information: I have reviewed the patient's allergies. Patient has no known allergies. Current Scheduled Meds: PMH/PSH/SH/FH reviewed, no change except: He is in the hospital receiving intravenous antibiotics May [address] Mora she said the approach she took for the surgery was a totally different area than the previous infected area intraoperatively she did not find any evidence of infection the bone was hard Intra-Op cultures were not done at this point based on her information we maynot need prolonged IV antibiotics at the midline order was discontinued and he would continue to maintain p.o. antibiotic to make sure skin soft tissue healing occurs and we will need to follow him in the wound clinic on a regular basis watch closely for any infection Patient also has his brother's today Denies any pain in the right ankle Review of Systems: All systems were reviewed and negative except: No fever chills nausea vomiting diarrhea Medications Reviewed. Chart Reviewed Physical Examination: Exam Findings: BP (!) 162/77 Pulse 79 Temp 98.2 F (36.8 C) (Infrared) Resp 16 SpO2 98% Constitutional: Awake alert answers all question HENT: Pupils reactive head: No oral candidiasis Eyes: No icterus Neck: Supple Cardiovascular: Heart S1-S2 2 by systolic murmur present no S3 Murmur Pulmonary/Chest: Clear Abdominal: Soft Musculoskeletal: No calf tenderness on the right leg he has an Zechariah bandage postop Neurological: Right great toe tip there is a blackish discoloration which will need to watch closely but he does have sensations difficult to move toes in his postop brace Skin no redness or cellulitis n prior to surgery by Dr. Mora Schulte: He is on long-term Schulte catheter because of nonweightbearing is being followed by Dr. Izquierdo he still has a Schulte may come out in July IV: other: He is now status post right ankle arthrodesis by Dr. Mora on 05/01/2020 postop Ze[address] bandage in place is able to recall the toes some toes are not discolored they look normal May 10 incision looks good per podiatry at the time of changing the cast May 24 incision looks good. The right great toe eschar is also with good bleeding June 07 postop wound healed up completely right great toe ulcer superficial without cellulitis July 12 the plantar foot wound is healed and stayed healed the great toe ulcer is very superficial clean August 02 right anterior leg tiny blister with trauma against a step Right foot ulcer is healed stayed healed he has hardware there is no redness in the foot right great toe eschar is dry The anterior tibial area we can feel a bump in the bone though there was no fracture August 09 right great toe right anterior leg right plantar foot all wounds healed up hardware right foot on long-term suppressive treatment no cellulitis August 23 plantar foot wound remains healed completely no redness no swelling no warmth September 06 right leg and right foot wound healed and stayed healed no more cellulitis Wound (Outpatient Only) 03/31/19 Foot Anterior;Right;Plantar (Active) Wound Image 04/26/20 1300 Wound Length (cm) 0 cm 04/26/20 1300 Wound Width (cm) 0 cm 04/26/20 1300 Wound Depth (cm) 0 cm 04/26/20 1300 Wound Surface Area (cm^2) 0 cm^2 04/26/20 1300 Wound Volume (cm^3) 0 cm^3 04/26/20 1300 Area % Change -100 04/26/20 1300 Volume % Change 0 04/26/20 1300 Tunneling Maximum Distance (cm) 0 cm 04/26/20 1300 Tunneling Position (o'clock) 0 04/26/20 1300 Undermining Maximum Distance (cm) 1 0 cm 04/26/20 1300 Undermining Starting Position (o'clock) 1 0 04/26/20 1300 Undermining Ending Position (o'clock) 1 0 04/26/20 1300 Wound Encounter Subsequent 04/26/20 1300 Wound Progress Improving 04/26/20 1300 Non-staged Wound Description Partial thickness 02/09/20 0700 Drainage Amount None 04/26/20 1300 Drainage Description Yellow 02/09/20 0700 Odor None 04/26/20 1300 Wound Margin Attached to wound base 03/01/20 0700 Adherent Yellow Slough % None 04/26/20 1300 Moist Yellow Slough % None 04/26/20 1300 Dry Black Eschar % None 04/26/20 1300 Moist Black Eschar % None 04/26/20 1300 Epithelialization % 76-100% 04/26/20 1300 Granulation % None 04/26/20 1300 Exposed Structure None 04/26/20 1300 Wound Bed Characteristics Clean;Dry;Intact 04/26/20 1300 Wound Closure Sutures 12/28/19 0815 Angeli-wound Assessment Temperature WNL 04/26/20 1300 Treatments Not Applicable 04/26/20 1300 Hemostasis Not applicable 04/26/20 1300 Cleansed Soap and water 04/26/20 1300 Primary Dressing Collagen;Antibiotic ointment / cream 02/09/20 08 Secondary Dressing Gauze pad;Gauze roll 02/09/20 0822 Compression Dressing Tubilar eleastic bandage 04/26/20 1300 Wound 05/10/20 Great Toe Anterior;Right (Active) Wound Image 09/06/20 0857 Wound Length (cm) 0 cm 09/06/20899 Wound Width (cm) 0 cm 09/06/20899 Wound Depth (cm) 0 cm 09/06/20899 Wound Surface Area (cm^2) 0 cm^2 09/06/20899 Wound Volume (cm^3) 0 cm^3 09/06/20899 Area % Change -100 09/06/20899 Tunneling Maximum Distance (cm) 0 cm 09/06/20899 Tunneling Position (o'clock) 0 09/06/20899 Tunneling Maximum Distance (cm) 0 cm 09/06/20899 Tunneling Position (o'clock) 0 09/06/20899 Undermining Maximum Distance (cm) 1 0 cm 09/06/20899 Undermining Starting Position (o'clock) 1 0 09/06/20899 Undermining Ending Position (o'clock) 1 0 09/06/20899 Undermining Maximum Distance (cm) 2 0 cm 09/06/20899 Undermining Starting Position (o'clock) 2 0 09/06/20899 Undermining Ending Position (o'clock) 2 0 09/06/20899 Wound Progress Improving 09/06/20899 Drainage Amount None 09/06/20899 Drainage Description Serosanguineous 07/05/20 0832 Odor None 09/06/20899 Wound Margin Attached to wound base 08/02/20 0744 Adherent Yellow Slough % None 09/06/20899 Moist Yellow Slough % None 09/06/20899 Dry Black Eschar % None 09/06/20 09 Moist Black Eschar % None 09/06/20899 Epithelialization % 76-100% 09/06/20899 Granulation % None 09/06/20899 Exposed Structure None 09/06/20899 Wound Bed Characteristics Clean;Dry;Intact 09/06/20899 Angeli-wound Assessment Temperature WNL 09/06/20899 Hemostasis Not applicable 09/06/20899 Cleansed Soap and water 09/06/20899 Primary Dressing Collagen with silver 08/23/20 0827 Secondary Dressing Foam 08/02/20 1000 Compression Dressing Zechariah wrap 08/02/20 1000 I have personally reviewed the labs and results Test results Laboratory and Additional Data Reviewed: Date: 09/06/2020 No new labs/ results as of last note: 08/23/2020 Update from previous note 08/23/2020 X-Ray Right tib/fib FINDINGS: AP and lateral views of right lower leg obtained. There is a stable tibiotalocalcaneal fixation rodfixated in the mid tibial diaphysis with transverse screw and calcaneus with a longitudinal calcaneal pin. This bridges a distal tibial transverse fracture. There are increasing small amounts of perio steal calcification with subtle signs of rigid bony fusion in a few locations. Fracture plane remains visible. There is a cortical screw also fusing the ankle joint positioned more medially also appear grossly intact. The distal fibula has been resected. The tarsal bones are not visualized or collapsed yet unchanged in appearance. IMPRESSION: 1. Partial healing of distal tibial transverse fracture without definitive signs of rigid bony fusion. 2. Grossly intact ankle joint fusion hardware as described. 3. Unchanged tarsal bone configuration. Current culture: 08/02/2020 Right leg, aerobic culture: Normal chalino after 48 hours. Current Antibiotics: Doxycycline 100 mg po daily through 10/2020 Previous Antibiotics: Maxipime 2 grams IV every 12 hours Doxycycline 100 mg PO daily until June 03, suppressive treatment Merrem 1,000 mg IV every 12 Hours Rocephin 2 gm IV every 24 Hours until 01/02/2020 Ancef 2,000 mg IV Dressings: Right great toe: Kb, DSD per Dr. Mora Right lower leg: Cast per Dr. Mora Date: 08/23/2020 New labs/ results as of last note: 08/09/2020 Last WBC 6.14 on 11 6 Hemoglobin 11.2 hematocrit 35.1 platelet count 230 BUN 20 creatinine 1.09 sed rate 32 CRP less than 2.9 08/09/2020 X-Ray right tib/fib FINDINGS: Two views of the right tibia and fibula were obtained. There is redemonstration of transverse fracture in the distal tibial diaphysis status post placement retrograde intramedullary nail with calcaneal and interlocking screws in place. Fracture line remains visible without bridging callus formation. Postsurgical findings of distal fibular resection and cannulated ankle and subtalar joint screw are again noted. Soft tissue edema is noted around the leg and ankle., IMPRESSION: Redemonstration of distal tibial diaphysis fracture, status post ORIF without change in alignment or bridging callus formation. Additional postsurgical findings in the ankle and hindfoot with soft tissue edema. Update from previous note Current culture: 08/02/2020 Right leg, aerobic culture: Normal chalino after 48 hours. Current Antibiotics: Doxycycline 100 mg po Daily through 10/2020 Previous Antibiotics: Maxipime 2 grams IV every 12 hours Doxycycline 100 mg PO daily until June 03, suppressive treatment Merrem 1,000 mg IV every 12 Hours Rocephin 2 gm IV every 24 Hours until 01/02/2020 Ancef 2,000 mg IV Dressings: Right leg: Below the knee cast per Dr. Mora Date: 08/09/2020 New labs/ results as of last note: 08/02/2020 I have personally reviewed all labs and other results. Labs and additional results reviewed: 08/02/2020 X-ray right tib/fib FINDINGS: Intramedullary tommy is noted in the tibial shaft. Additional screws and pins are noted in hindfoot. The hardware appears intact. Resection of the distal fibula is again noted. There is the transverse fracture through the distal tibial shaft that is new from the prior study. IMPRESSION: New acute fractures in the distal tibial shaft. 08/02/2020 X-ray right ankle FINDINGS: RIGHT TIBIA FIBULA: Retrograde intramedullary tommy through the calcaneus, talus extending to the mid tibia with a singleproximal tibial screw redemonstrated. Separate retrograde orthopedic screw extending through the calcaneus, talus and to the distal tibia. There is a new acute transverse fracture involving the [id number] diaphyseal shaft of the tibia surrounding the intact intramedullary tommy. Additional lag screw through the calcaneus. Resection of the distal fibula redemonstrated. Some mild generalized soft tissue edema. RIGHT ANKLE: Orthopedic changes about the proximal foot redemonstrated as described above. Severe degenerative changes of the visualized midfoot. Prominent inferior and moderate superior calcaneal spur redemonstrated. Some bony fragmentation along the lateral aspect of the ankle and some ossification along the plantar fascial region redemonstrated. Soft tissue edema about the ankle. IMPRESSION: 1. New acute transverse fracture involving the distal diaphyseal shaft is in good alignment and surrounds an intact retrograde intramedullary tommy extending through the calcaneus, talus into the mid tibial region with a single proximal tibial screw. 2. Stable orthopedic fixation of the ankle as described above. 3. Prior resection of the distal fibula redemonstrated. 4. Some mild soft tissue edema of the lower extremity including the ankle. GJT/ges Update from previous note Current culture: 08/02/2020 Right leg, aerobic culture: Normal chalino after 48 hours. Current Antibiotics: Doxycycline 100 mg po Daily through 10/2020 Previous Antibiotics: Maxipime 2 grams IV every 12 hours Doxycycline 100 mg PO daily until June 03, suppressive treatment Merrem 1,000 mg IV every 12 Hours Rocephin 2 gm IV every 24 Hours until 01/02/2020 Ancef 2,000 mg IV Dressings: Right leg: Cellerate and bacitracin Right great toe: Kb Date: 08/02/2020 No new labs/ results as of last note: 07/12/2020 X-rays right leg taken 07/24/[address] Archer's [place] office. Per patient, Dr. Archer told him Update from previous note Current Antibiotics: Doxycycline 100 mg po Daily through 10/2020 Previous Antibiotics: Maxipime 2 grams IV every 12 hours Doxycycline 100 mg PO daily until June 03, suppressive treatment Merrem 1,000 mg IV every 12 Hours Rocephin 2 gm IV every 24 Hours until 01/02/2020 Ancef 2,000 mg IV Current culture: 07/12/2020 Right great toe, aerobic culture: Normal chalino after 48 hours. Dressings: Right great toe: Kb Right leg: Kerlix, zechariah. Date: 06/07/2020 New labs/ results as of last note: 05/24/2020 Labs and other data reviewed: CBC Auto Differential Component Ref Range & Units 12d ago (05/24/20) 1mo ago (05/03/20) 1mo ago (05/02/20) 1mo ago (05/01/20) 1mo ago (04/26/20) 3mo ago (02/09/20) 5mo ago (12/28/19) WBC 4.50 - 11.00 K/mcL 4.09Low 6.78 8.37 6.59 6.01 4.66 RBC 4.50 - 5.90 M/mcL 3.80Low 3.46Low 3.58Low 4.91 4.53 4.42Low Hemoglobin 13.5 - 17.5 g/dL 10.8Low 9.8Low 10.3Low 12.6Low 14.0 12.1Low 11.6Low Hematocrit 41.0 - 53.0 % 32.4Low 30.0Low 30.8Low 37.8Low 42.4 38.2Low 38.0Low MCV 80.0 - 100.0 fL 85.3 86.7 86.0 86.4 84.3 86.0 MCH 26.0 - 34.0 pg 28.4 28.3 28.8 28.5 26.7 26.2 MCHC 31.0 - 37.0 g/dL 33.3 32.7 33.4 33.0 31.7 30.5Low Platelets 150 - 400 K/mcL 169 139Low 163 230 196 182 Comprehensive Metabolic Panel Component Ref Range & Units 12d ago (05/24/20) 1mo ago (05/03/20) 1mo ago (05/02/20) 1mo ago (05/01/20) 3mo ago (02/09/20) 5mo ago (12/28/19) 5mo ago (12/18/19) Sodium 135 - 145 mmol/L 141 138 140 142 142 142 142 Potassium 3.5 - 5.1 mmol/L 4.2 4.3 5.1 4.4 4.3 4.3 4.5 Chloride 98 - 108 mmol/L 110High 106 106 110High 109High 109High 106 Bicarbonate 21 - 32 mmol/L 26 27 28 27 28 31 25 Anion Gap 10 - 20 mmol/L 9Low 9Low 11 9Low 9Low 6Low 16 Glucose 65 - 99 mg/dL 171High 157High 262High 114High 205High 135High 82 BUN 8 - 25 mg/dL 17 29High 22 16 22 18 23 Creatinine 0.50 - 1.30 mg/dL 0.84 1.42High 1.51High 0.94 0.94 0.71 1.04 eGFR >=60 mL/min/1.73 m2 97 54Low 51Low 90 90 104 79 BUN/Creatinine Ratio 10.0 - 20.0 20.2High 20.4High 14.6 17.0 23.4High 25.4High 22.1High Total Protein 6.0 - 8.0 g/dL 6.6 6.3 6.9 7.0 7.2 Albumin 3.2 - 5.2 g/dL 3.2 3.0Low 3.5 3.1Low 3.0Low Calcium 8.4 - 10.2 mg/dL 9.3 8.1Low 8.3Low 9.1 9.2 9.2 9.6 Alkaline Phosphatase 40 - 150 U/L 95 52 72 93 94 AST 0 - 45 U/L 14 11 14 16 20 Total Bilirubin 0.0 - 1.3 mg/dL 0.3 0.3 0.3 0.4 0.3 ALT 14 - 65 U/L 21 11Low 19 19 27 CRP, Inflammation Component Ref Range & Units 12d ago (05/24/20) 1mo ago (05/03/20) 3mo ago (02/09/20) 5mo ago (12/28/19) 5mo ago (12/18/19) 5mo ago (12/12/19) 6mo ago (12/05/19) CRP(Inflammation) <=10.0 mg/L 7.0 92.3High 5.7 6.4 18.7High 52.4High 85.3High Sedimentation Rate Order: [id number] Status: Final result Visible to patient: No (not released) Next appt: 06/07/2020 at 08:30 AM in Wound Care (Maria Isabel Awad MD) Dx: Elevated C-reactive protein (CRP); El... Component Ref Range & Units 12d ago (05/24/20) 1mo ago (05/03/20) 1mo ago (04/26/20) 3mo ago (02/09/20) 5mo ago (12/28/19) 5mo ago (12/18/19) 5mo ago (12/12/19) Sed Rate 0 - 20 mm/hr 36High 45High 23High 24High 33High 72High 91High 05/24/2020 X-Ray Right ankle IMPRESSION: Postsurgical changes without acute osseous abnormality. 05/24/2020 X-Ray Right Foot IMPRESSION: Postsurgical changes without acute osseous abnormality. Update from previous note Current Antibiotics: Doxycycline 100 mg PO BID through 06/18/2020, then one tablet daily for 6 months. Previous Antibiotics: Maxipime 2 grams IV every 12 hours Doxycycline 100 mg PO daily until June 03, suppressive treatment Merrem 1,000 mg IV every 12 Hours Rocephin 2 gm IV every 24 Hours until 01/02/2020 Ancef 2,000 mg IV Update from previous note Current Cultures: 05/02/2020 Urine Aerobic Culture: No Growth. Final. 05/02/2020 Blood Culture #2: In Progress; No Growth after 5 days. Final. 05/02/2020 Blood Culture #1: In Progress; No Growth after 5 days. Final. Dressings: per Dr. Mora Right great toe: Betadine, DSD Right lower extremity: Cast Date: 05/24/2020 No new labs/ results as of last note: 05/10/2020 Update from previous note Current Antibiotics: Doxycycline 100 mg PO BID. Last day 06/02/2020. Previous Antibiotics: Maxipime 2 grams IV every 12 hours Doxycycline 100 mg PO daily until June 03, suppressive treatment Merrem 1,000 mg IV every 12 Hours Rocephin 2 gm IV every 24 Hours until 01/02/2020 Ancef 2,000 mg IV Update from previous note Current Cultures: 05/02/2020 Urine Aerobic Culture: No Growth. Final. 05/02/2020 Blood Culture #2: In Progress; No Growth after 5 days. Final. 05/02/2020 Blood Culture #1: In Progress; No Growth after 5 days. Final. Dressing: Per Dr. Mora Date: 05/10/2020 No new labs/ results as of last note: 05/03/2020 Current Antibiotics: Doxycycline 100 mg PO BID Previous Antibiotics: Maxipime 2 grams IV every 12 hours Doxycycline 100 mg PO daily until June 03, suppressive treatment Merrem 1,000 mg IV every 12 Hours Rocephin 2 gm IV every 24 Hours until 01/02/2020 Ancef 2,000 mg IV Update from previous note Current Cultures: 05/02/2020 Urine Aerobic Culture: No Growth. Final. 05/02/2020 Blood Culture #2: In Progress; No Growth after 5 days. Final. 05/02/2020 Blood Culture #1: In Progress; No Growth after 5 days. Final. Dressing: Per Dr. Mora Date: 05/03/2020 New labs/results as of last note Update from previous note Tmax: 98.8 Urine Output: 700 Stool: not recorded Current Antibiotics: Maxipime 2 gm IV every 12 Hours Previous Antibiotics: Doxycycline 100 mg PO daily until June 03, suppressive treatment Merrem 1,000 mg IV every 12 Hours Rocephin 2 gm IV every 24 Hours until 01/02/2020 Ancef 2,000 mg IV I have personally reviewed the labs and results Test results Laboratory and Additional Data Reviewed: Labs: CBC 05/03/2020 03:54 WBC: 6.78 RBC: 3.46 Hgb: 9.8 Hct: 30.0 Platelets: 139 Lymphocytes Abs: 0.89 Monocytes Abs: 0.91 CMP 05/03/2020 03:54 Glucose: 157 BUN: 29 Creatinine: 1.42 Sodium: 138 Potassium: 4.3 Total Protein: 6.3 Albumin: 3.0 Calcium: 8.1 Alk Phos: 52 AST: 11 ALT: 11 Total Bilirubin: 0.3 CRP 05/03/2020 03:54 92.3 Sed Rate 05/03/2020 03:54 45 U/A 05/02/2020 18:46 Clarity: Cloudy Specific [place]: 1.031 Protein: 100 Ketones: Trace Blood: Small Leukocyte Esterase: Large WBCS: 84 RBCS: 16 Bacteria: Many WBC Clumps: Many Hyaline Casts: 11-20 Amorphous Crystals: Few Mucus: Rare Current Cultures: 05/02/2020 Urine Aerobic Culture: No Growth, Incubation Continued. Preliminary. 05/02/2020 Blood Culture #2: In Progress; No Growth to Date. Preliminary. 05/02/2020 Blood Culture #1: In Progress; No Growth to Date. Preliminary. 04/28/2020 COVID-19, Molecular SARS-CoV-2 RNA: Not Detected. Final. Radiology: Right Ankle X-Ray 05/02/2020 FINDINGS: Fourteen spot fluoroscopic images were obtained in the operating room. Fluoroscopic technique limits osseous and soft tissue detail. Images demonstrate hindfoot and ankle joint arthrodesis with tibial intramedullary tommy extending through the calcaneus and talus. An additional cannulated lag screw is present on the final images, and a transcalcaneal fixation hardware is present. There is a proximal interlocking screw. A distal fibular osteotomy is present. Alignment appears anatomic. IMPRESSION: Spot fluoroscopic images obtained during right ankle arthrodesis. Please see dictated operative report for full details. Chest X-Ray 04/26/2020 ORDERED Current antibiotic received preop Ancef Previous Antibiotics: Doxycycline 100 mg PO daily until June 03, suppressive treatment Merrem 1,000 mg IV every 12 Hours Rocephin 2 gm IV every 24 Hours until 01/02/2020 Ancef 2,000 mg IV Invalid input(s): CO2 Current Cultures: 04/28/2020 COVID-19, Molecular SARS-CoV-2 RNA: Not Detected. Final. Recent Cultures: 12/28/2019 - Right foot, aerobic culture: Normal Chalino after 48 hours. 12/21/2019 - Right foot, aerobic - normal chalino after 48 hours 12/21/2019 - Right foot, anaerobic: No anaerobic growth at 2 days. 12/10/2019 Right Foot Wound Aerobic Culture: Normal Chalino After 48 Hours. Final 12/10/2019 Right foot wound, anaerobic culture: No anaerobic growth at 2 days. Final 12/08/2019 Urine Aerobic Culture: No Growth (<1,000 CFU/mL). Final. 12/07/2019 Urine Aerobic Culture on arrival to Nursing Rehab Unit: No Growth (<1,000 CFU/mL). Final. 12/02/2019 Right Foot Tissue Aerobic Culture: Normal Chalino After 48 Hours. Final. 12/02/2019 Right Foot Tissue AFB Culture: No Acid Fast Bacilli after 8 weeks. Final. 12/02/2019 Right Foot Tissue Anaerobic Culture: No Anaerobic Growth at 2 Days. Final. 12/02/2019 Right Foot Tissue Fungus Culture: No fungus isolated at 4 weeks. Final. 12/01/2019 Blood Culture #1: No Growth After 5 Days. Final. 12/01/2019 Blood Culture #2: No Growth After 5 Days. Final. 11/30/2019 Right Foot Wound Aerobic Culture: Normal Chalino After 48 Hours. Final. 11/21/2019 Left Leg Wound Aerobic Culture: Normal Chalino After 24 Hours. Final. 11/20/2019 Right Foot Tissue Aerobic Culture: Moderate Growth Enterobacter cloacae complex, S=Youssef Sensitive. Final. 11/20/2019 Right Foot Tissue Anaerobic Culture: No Anaerobic Growth at 2 Days. Final. 11/20/2019 Right Foot Bone Aerobic Culture: Light Growth Enterobacter Cloacae Complex, S=Youssef Sensitive. Final. 11/20/2019 Right Foot Bone Anaerobic Culture: No Anaerobic Growth at 2 Days. Final. 05/30/2019 Right Foot Tissue Aerobic Culture: Normal Chalino After 48 Hours. Final. 05/30/2019 Right Foot Tissue Anaerobic Culture: No Anaerobic Growth at 2 Days. Final. 03/23/2019 Right Foot Wound Aerobic Culture: Heavy Growth Raoultella [place], R=Ampicillin, S=Remainder of panel. 03/09/2019 Right Foot Wound Aerobic Culture: Normal Chalino After 48 Hours. Final. 02/09/2019 Right Foot Wound Aerobic Culture: Normal Chalino After 48 Hours. Final. 01/19/2019 Right Toe Two Wound Aerobic Culture: Heavy Growth Enterobacter Cloacae Complex, S=Youssef Sensitive. Final. Radiology: Right Ankle X-Ray 05/02/2020 ORDERED Right Tib/Fib X-Ray 05/01/2020 1. Fusion of the tibia, talus, and calcaneus. Alignment is anatomic. There has been resection of the lateral malleolus. Right Ankle X-Ray 05/01/2020 FINDINGS: Images are obtained with the right ankle in a splint which obscures bony detail. There is interval resection of the distal right fibula. Internal fixation of the right ankle is seen with intramedullary tommy seen in the right tibia traversing the tibiotalar joint. Additional smaller surgical screw isseen traversing the tibiotalar joint. Internal fixation of the calcaneus is also seen with metallicrod. Ankle and calcaneal fractures demonstrate normal alignment. Large plantar calcaneal spur is seen. Advanced degenerative changes are seen about the mid foot. Mild diffuse bony demineralization isseen. IMPRESSION: Images are obtained with the right ankle with in a splint which obscures bony detail. Postsurgical changes are seen, as detailed above with normal alignment. Right Tib/Fib X-Ray 05/01/2020 Status post removal of the external fixator with no acute osseous abnormality in the right tibia orfibula or right ankle. Right Foot X-Ray 05/01/2020 1. Prior external fixator replacement. Extensive deformity in the midfoot related to prior surgicalresection or Charcot changes. Continued subluxation between talus and navicular. 2. 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 Chest X-Ray 04/26/2020 ORDERED Right Foot X-Ray 11/20/2019 IMPRESSION: Intraoperative fluoroscopy for localization during right foot and ankle reconstruction and fixation. Please see operative report for details. Left Ankle X-Ray Ordered 11/20/2019 Right Tib/Fib,Right Foot X-Ray 02/16/2020 FINDINGS: There is extensive hardware from an external fixator present. This obscures fine bony detail.A single percutaneous pin is seen entering the plantar aspect of the foot through the calcaneus, talus, and entering the distal tibia. A 2nd slightly larger metallic tommy is seen entering the posterior calcaneus extending into the talus. Degenerative changes are present in the midfoot. There is soft tissue edema. IMPRESSION: Study is limited due to overlying external fixator. No significant change in alignment. NM White Cell Scan Spot Limited 03/08/2017 FINDINGS: A focal area of intense abnormal white blood cell migration is noted central plantar aspect of the right foot corresponding to the area of the wound demonstrated radiographically. No other focus of white blood cell migration abnormality is evident within the right or left foot. IMPRESSION: Focal area of abnormal white blood cell migration at the plantar aspect central right foot may be at the wound itself or may be involving the bone with associated fracture as demonstrated radiographically. Anatomic detail is insufficient for differentiation between the two. Renal U/S 03/07/2017 IMPRESSION: Severe thickening of the urinary bladder wall. This could be due to outlet obstruction with hypertrophy of the wall. If there is no such history, this should be evaluated with cystoscopy. CVPS: Lower Arterial Doppler: not on file Lower Venous Doppler: not on file 2D Echo 11/23/2019 Moderate LV enlargement with LVH. Global systolic dysfunction with segmental features. LVEF 30% Elevated LV filling pressures RV is dilated with severe RV dysfunction Mild mitral annular calcification, mild thickening of the aortic valve without hemodynamically significant valvular disease There is a atrial level right to left shunt identified with saline contrast with free breathing andValsalva most likely via PFO LVEF unchanged from to previous echo from 2017 Surgeries: Please see above for surgical history Procedure: RIGHT ANKLE ARTHRODESIS, SUBTALAR ARTHRODESIS RIGHT ANKLE, Bone [place] Graft From RightFibula, Application of Splint Date: 05/01/2020 Alena Mora DPM Procedure: RIGHT FOOT RECONSTRUCTION WITH APPLICATION OF CIRCULAR STATIC EXTERNAL FIXATION Date: 11/20/2019 Surgeon: Alena Mora DPM Procedure: ARTHROPLASTY 2ND TOE RIGHT FOOT Date: 01/25/2019 Surgeon: Rosa M Robles DPM Pathology: 12/02/2019 A. Soft tissue, Right Foot, excision: Non-specific ulcer. * Phoebe Duncan RN - 09/06/2020 8:15 AM EST Date: 09/06/2020 No new labs/ results as of last note: 08/23/2020 Update from previous note 08/23/2020 X-Ray Right tib/fib FINDINGS: AP and lateral views of right lower leg obtained. There is a stable tibiotalocalcaneal fixation rodfixated in the mid tibial diaphysis with transverse screw and calcaneus with a longitudinal calcaneal pin. This bridges a distal tibial transverse fracture. There are increasing small amounts of perio steal calcification with subtle signs of rigid bony fusion in a few locations. Fracture plane remains visible. There is a cortical screw also fusing the ankle joint positioned more medially also appear grossly intact. The distal fibula has been resected. The tarsal bones are not visualized or collapsed yet unchanged in appearance. IMPRESSION: 1. Partial healing of distal tibial transverse fracture without definitive signs of rigid bony fusion. 2. Grossly intact ankle joint fusion hardware as described. 3. Unchanged tarsal bone configuration. Current culture: 08/02/2020 Right leg, aerobic culture: Normal chalino after 48 hours. Current Antibiotics: Doxycycline 100 mg po daily through 10/2020 Previous Antibiotics: Maxipime 2 grams IV every 12 hours Doxycycline 100 mg PO daily until June 03, suppressive treatment Merrem 1,000 mg IV every 12 Hours Rocephin 2 gm IV every 24 Hours until 01/02/2020 Ancef 2,000 mg IV Dressings: Right great toe: Kb, DSD per Dr. Mora Right lower leg: Cast per Dr. Mora documented in this encounter* Alena Mora, DPM - 09/06/2020 9:13 AM EST Subjective: Patient is a pleasant 59-year-old male who presents to the wound care center 4 months status post ankle joint and subtalar joint arthrodesis via intramedullary nail fixation in treatment for his Charcot neuroarthropathy. Patient states that he is doing well. He has been NWB in the short leg cast and using wheel chair in treatment of his tibial fracture. Denies any pain to his right leg. No other pedal complaints at this time.Denies fevers, chills, nausea, vomiting, chest pain, shortness of breath, or any other constitutional symptoms. Objective: Vascular: DP and PT pulses are palpable. Cap refill time is brisk to distal digits. Skin temperature is warm to warm from proximal tibial tuberosity to distal digits. Right leg swelling at the site of fracture has resolved. Neuro: Gross sensation is intact. Protective sensation is absent. Derm:The previously noted ulceration to the right great toe has now healed. No surrounding erythema, edema, dehiscence or any acute signs of infection. All surgical incision sites are well healed. Nosurrounding erythema, edema, drainage, or any acute signs of infection. Small skin tear to third toe has resolved. Musculoskeletal: No pain to distal tibial fracture site. Patient is able to wiggle digits. Compartments are soft and compressible. No calf pain. No open wounds. Assessment: 6 weeks non-displaced distal tibial fracture, right - Healing well. 4 months status post ankle and subtalar joint arthrodesis via IM nail fixation, right lower extremity (Dr. Mora) doing well Full thickness ulceration right great toe - Healed Plan: Patient was seen and evaluated. Discussed all clinical and radiographic findings. New radiographs obtained today showing callous formation across the tibial fracture site with IMN spanning the fracture site. Interval osseous consolidation across ankle and subtalar joints. Hardwareis intact without any signs of failure or lucency. Patient's prior right great toe ulcer is now healed. No need for debridement. Applied Tubigrip and zechariah bandage from toes to knee to right lower extremity Patient is okay to begin partial weightbearing to the right lower extremity using his cam boot. Follow-up in the wound care center in 4 weeks Alena Mora DPM, MSBS Podiatric Physician and Surgeon documented in this encounter* Alena Mora DPM - 07/27/2019 12:25 PM EDT Associated Order(s): Wound Debridement Post-Procedure Diagnose(s): Skin ulcer of right foot with fat layer exposed (HCC); 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) HPI: Patient is a 58 y.o. male presents to the wound care center for follow-up evaluation and management to right foot plantar ulceration secondary to Charcot. He has right midfoot ulceration that started after wearing surgical shoe following hammertoe surgery. States that he has been limiting his weightbearing, keeping his ulceration clean, and applying medihoney for dressing changes daily. Minimal drainage. Never smoker. DM x years. A1c 8.5%. Denies fevers, chills, nausea, vomiting, chest pain, shortness of breath, or any other constitutional symptoms. Objective: Vascular: Peripheral pulses are palpable at 2 out of 4 for the right dorsalis pedis pulse, 2 out of4 for the left dorsalis pedis pulse, 2 out of 4 the right posterior tibial pulse, 2 out of 4 for the left posterior tibial pulse. CFT is less than 3 seconds bilaterally. Skin temperature is warm to warm proximal to distal bilaterally. Lower extremity edema Trace is observed to the bilateral lower extremities. Neurological: Epicritic sensation is grossly absent bilateral via light touch. Babinski test is plantigrade bilaterally. Achilles reflex is present bilateral. Patient is able to follow 2-step commands. No gross motor deficit appreciated at this time bilateral lower extremities. Dermatologic: Full-thickness ulceration noted to the plantar midfoot measuring 1.0 x 0.8 x 0.2 cm. The macerated border has resolved. Wound bed is granular. No periwound erythema, edema, drainage or any acute signs of infection. Wound does not probe to bone. No cellulitis or lymphangitis. Musculoskeletal: Range of motion of the lower extremity at the ankle is diminished. Muscle strengthis 4/5 for all muscle groups. Charcot with rocker bottom right foot, plantargrade left foot Radiographs reviewed noting 1. Charcot foot with advanced deformity of the mid aspect of the right foot. 2. Full thicknesss ulceration, right foot Labs: Lab Results Component Value Date HGBA1C 8.5 (H) 01/20/2019 Lab Results Component Value Date WBC 4.61 01/20/2019 Assessment: Full-thickness plantar ulceration, right foot - Stable Charcot neuroarthropathy Diabetes type 2 with peripheral neuropathy Plan: Patient was examined and evaluated. Wound is stable. No signs of infection Debridement was performed today, see procedure note. At this time patient will continue betadine to wound macerated border if present, and meta honey tothe wound bed. Patient is to limit weightbearing and to work on lowering his hemoglobin A1c with his PCP. Tentative plans for surgery in the next few month pending medical clearance and preoperative testing Patient understands that he is at high risk for limb loss. Follow up in 2 weeks Alena Mora DPM Wound Care Debridement Timeout: Verbal Consent obtained?: Yes Written Consent obtained?: Yes Consent given by: Patient Immediately prior to procedure a time out was called to verify the correct patient, procedure, equipment, support service tech and site/side marked as required Debridement Procedure: Debridement Performed for Assessment: Right foot ulcer Performed by: Physician Debridement Type: Surgical Pain Control: N/A Level: Skin/Subcutaneous Tissue Post Debridement Measurements: Length (cm): 1 Width (cm): 0.8 Depth (cm): 0.2 Area (sq cm): 0.8 Volume (cm3): 0.16 Percent Debrided: 100 Total Area Debrided (sq cm): 0.8 Tissue and other material debrided: Subcutaneous Devitalized tissue debrided: Biofilm Instrument: Curette Bleeding: Minimal Hemostasis Achieved: Pressure Procedural Pain: Insensate Post Procedural Pain: Insensate Response to Treatment: Procedure was tolerated well documented in this encounter* Lin Justice RN - 10/18/2020 8:58 AM EST Surgical mask and gloves, and eyewear worn while in exam room with patient. Patient wearing mask at all times while staff in the room. * Maria Isabel Awad MD - 10/18/2020 8:16 AM EST CONSULT NOTE 05/02/2020 Patient Name: Dyllan Huertas Admit Date: MR #: [id number] : 1960 Physicians: Rohit Aguilar MD (Family); No ref. 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 antibiotic Will need to watch very closely for any recurrence of infection and treat aggressively if indicatedin the future May 10 New blister of the right great toe Postop wound of the right ankle from surgery in May 01, 2020 May 24 Right foot postop wound is clean no drainage no cellulitis Enterobacter and gram-negative June 07 Postop wound is healed up Right great toe superficial ulceration no evidence of cellulitis right now Last CRP 7 and sed rate 37 #9 July Plantar foot wound is healed and stayed healed Toe ulcer is clean August 02, 2020 Right foot ulcer healed Right foot Charcot with hardware placed May 01, 2020 Right anterior leg area wound with trauma with a step no kali ulceration x-ray done by Dr. Archer was negative for any fracture Tiny blisters if at all any August 09 Right toe ulcer healed Right leg blisters healed Hardware right foot with right foot ulcer on long-term suppressive antibiotic treatment Right leg x-ray negative for fracture right foot x-ray with hardware and a fracture I would leave that up to Dr. Mora August 23 Right toe ulcers are clean Foot ulcer healed Postop wound healed up completely No redness noted Lab work done CRP was less than 2.9 sed rate 32 his glucose was 46 was addressed #4 September Right leg ulcers have healed Right foot wound has healed and stayed healed xray with continued healing but not complete October 18, 2019 Right foot s/p Charcot repair surgery right tibial fracture with hardware Intraoperative cultures normal chalino Original cultures October and November 2019 had Enterobacter which was adequately treated with IV antibiotics Patient doing very well on long-term suppressive antibiotic treatment in view of the prolonged ulcers that he had an multiple open wounds that he had which have finally healed stayed healed and has hardware which would be at risk of flareup of any infection and generally 1 year long-term suppressive treatment is given good results with complete fusion by then I discussed with Dr. Mora I reviewed the x-ray film done last and another films can be done today Last CRP less than 2.9 in August and last sed rate 32 Recommend October 18, 2020 Doxycycline 100 mg p.o. once a day till May 01 CBC CMP sed rate CRP to be done in about 3 months See me in the office in 3 months After April we will stop all the antibiotic watch him off antibiotics September 06 Doxycycline 100 g p.o. once a day till October 2020 I will see him in [address] Mora August 23 Doxycycline 100 g p.o. once a day till October 2020 He does have [address] Mora Return to see me in [address] Mora August 09 Doxycycline 100 mg p.o. per day till October 2020 Patient has one refill Return to see me in 2 weeks We'll order a CBC CMP sed rate CRP while he is on long-term suppressive treatment can be drawn at one of his next visits here put the order in the computer Dressing per Dr. Mora to the right great toe August 02 Doxycycline 100 g p.o. per day till October 2020 Right anterior leg area with tiny blisters I need to culture because he has hardware in the ankle we want to be very aggressive with any antibiotic management Consider Triad to the right anterior leg area I would leave it up to Dr. Mora Return to see me next week with Dr. Mora July 12 Doxycycline 100 g p.o. once a day suppressive treatment till October [address] Mora Culture the right toe today Readjust antibiotics if needed June 07 Doxycycline decreased to 100 mg p.o. per day We will go with suppressive treatment although wait till October 2020 which will be 6 months postopand if we need to go longer will go up to 1 year total Local dressings per Dr. Mora I will see him in [address] Mora I have discussed this with the patient as well as podiatry May 24 Doxycycline 100 g p.o. twice daily continue for now till June 18 After that we will cut it down to 1 tablet of doxycycline per day for long-term suppressive treatment may need to go up to November 03, 2020 to make it 6 months postop I looked at the films with Dr. Mora from last time Cast per Dr. Mora I will see him in 2 weeks X-ray per Dr. Mora today Labs will be done today here May 10 Cast was changed by podiatry today incision looks good without any evidence of secondary infection Doxycycline 100 mg p.o. twice a day continued for total of 1 month he has enough Revisit 2 weeks May 03 Discontinue the order for PICC line Discontinue IV cefepime P.o. doxycycline 100 mg twice daily for 30 days Follow-up in the wound clinic on Wednesdays with myself and Dr. Mora Any dressing orders will be per I have discussed with the patient as well as hospitalist May 02 PICC line placement Cefepime 2 g IV every 12 Follow-up current OR cultures however with the extent of infection he had before it would be prudent to give prolonged IV for now hardware would be at risk for infection CBC CMP sed rate CRP blood cultures x2 half an hour apart [employer] MANAGEMENT to be sent today I have discussed with the hospitalist Chief Complaint/Reason for Visit: I am seeing this patient at the request of Dr. Emilie MD. I have reviewed the current hospital record, available laboratory, cardiology and imaging studies as well as available out patient records. History of Present Illness: Admission H&P by Ramírez Damico CNP on 05/01/2020: Dyllan Huertas is a 59 y.o. male with history of IDDM and neuropathy presents for status post right ankle arthrodesis. Dr. Mora performed the procedure today. Patient laid on bed without complaint. Patient is afebrile, vitals are stable. Patient will be on antibiotics and continue home meds. 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 doxycycline suppressive treatment for Enterobacter cloaca infection he also received Rocephinat one point eventually on May 01, 2020 patient underwent extensive surgery to the 7-hour surgery by Dr. Mora which was right foot arthrodesis subtalar arthrodesis right ankle which is corrective surgery for his Charcot and infectious disease consult for further help with antibiotic management Past medical surgical social family history nobody with boils all his details of previous history is in the notes He was a long-term suppressive treatment with doxycycline He is a chronic Schulte catheter because of nonweightbearing He had done home IV antibiotics in the past The Enterobacter cloaca he was [place] Allergy Information: I have reviewed the patient's allergies. Patient has no known allergies. Current Scheduled Meds: PMH/PSH/SH/FH reviewed, no change except: He is in the hospital receiving intravenous antibiotics May [address] Mora she said the approach she took for the surgery was a totally different area than the previous infected area intraoperatively she did not find any evidence of infection the bone was hard Intra-Op cultures were not done at this point based on her information we maynot need prolonged IV antibiotics at the midline order was discontinued and he would continue to maintain p.o. antibiotic to make sure skin soft tissue healing occurs and we will need to follow him in the wound clinic on a regular basis watch closely for any infection Patient also has his brother's today Denies any pain in the right ankle Review of Systems: All systems were reviewed and negative except: No fever chills nausea vomiting diarrhea Medications Reviewed. Chart Reviewed Physical Examination: Exam Findings: BP (!) 146/82 Pulse 84 Temp 98.3 F (36.8 C) (Infrared) Resp 18 Ht 5' 11 Wt 115.2 kg (254 lb) SpO2 97% BMI 35.43 kg/m Constitutional: Awake alert answers all question HENT: Pupils reactive head: No oral candidiasis Eyes: No icterus Neck: Supple Cardiovascular: Heart S1-S2 2 by systolic murmur present no S3 Murmur Pulmonary/Chest: Clear Abdominal: Soft Musculoskeletal: No calf tenderness on the right leg he has an Zechariah bandage postop Neurological: Right great toe tip there is a blackish discoloration which will need to watch closely but he does have sensations difficult to move toes in his postop brace Skin no redness or cellulitis n prior to surgery by Dr. Abby Schulte: He is on long-term Schulte catheter because of nonweightbearing is being followed by Dr. Izquierdo he still has a Schulte may come out in July IV: other: He is now status post right ankle arthrodesis by Dr. Mora on 05/01/2020 postop Zechariah bandage in place is able to recall the toes some toes are not discolored they look normal September 06 right leg and right foot wound healed and stayed healed no more cellulitis October 18 2020 right foot operative wounds all healed up extensive reconstructive surgery with hardware right tibia and right foot right toe ulcer is healed up and stayed healed no evidence of cellulitis Wound (Outpatient Only) 03/31/19 Foot Anterior;Right;Plantar (Active) Wound Image 10/18/20 0757 Wound Length (cm) 0 cm 04/26/20 1300 Wound Width (cm) 0 cm 04/26/20 1300 Wound Depth (cm) 0 cm 04/26/20 1300 Wound Surface Area (cm^2) 0 cm^2 04/26/20 1300 Wound Volume (cm^3) 0 cm^3 04/26/20 1300 Area % Change -100 04/26/20 1300 Volume % Change 0 04/26/20 1300 Tunneling Maximum Distance (cm) 0 cm 04/26/20 1300 Tunneling Position (o'clock) 0 04/26/20 1300 Undermining Maximum Distance (cm) 1 0 cm 04/26/20 1300 Undermining Starting Position (o'clock) 1 0 04/26/20 1300 Undermining Ending Position (o'clock) 1 0 04/26/20 1300 Wound Encounter Subsequent 04/26/20 1300 Wound Progress Improving 04/26/20 1300 Non-staged Wound Description Partial thickness 02/09/20 0700 Drainage Amount None 10/18/20 0757 Drainage Description Yellow 02/09/20 0700 Odor None 04/26/20 1300 Wound Margin Attached to wound base 03/01/20 0700 Adherent Yellow Slough % None 04/26/20 1300 Moist Yellow Slough % None 04/26/20 1300 Dry Black Eschar % None 04/26/20 1300 Moist Black Eschar % None 04/26/20 1300 Epithelialization % 76-100% 04/26/20 1300 Granulation % None 04/26/20 1300 Exposed Structure None 04/26/20 1300 Wound Bed Characteristics Clean;Dry;Intact 04/26/20 1300 Wound Closure Sutures 12/28/19 0815 Angeli-wound Assessment Temperature WNL 04/26/20 1300 Treatments Not Applicable 04/26/20 1300 Hemostasis Not applicable 04/26/20 1300 Cleansed Soap and water 04/26/20 1300 Primary Dressing Collagen;Antibiotic ointment / cream 02/09/20 0822 Secondary Dressing Gauze pad;Gauze roll 02/09/20 0822 Compression Dressing Tubilar eleastic bandage 04/26/20 1300 Wound 05/10/20 Great Toe Anterior;Right (Active) Wound Image 10/18/20 0757 Wound Length (cm) 0 cm 09/06/20899 Wound Width (cm) 0 cm 09/06/20899 Wound Depth (cm) 0 cm 09/06/20899 Wound Surface Area (cm^2) 0 cm^2 09/06/20899 Wound Volume (cm^3) 0 cm^3 09/06/20 09 Area % Change -100 09/06/20899 Tunneling Maximum Distance (cm) 0 cm 09/06/20899 Tunneling Position (o'clock) 0 09/06/20899 Tunneling Maximum Distance (cm) 0 cm 09/06/20899 Tunneling Position (o'clock) 0 09/06/20899 Undermining Maximum Distance (cm) 1 0 cm 09/06/20899 Undermining Starting Position (o'clock) 1 0 09/06/20 09 Undermining Ending Position (o'clock) 1 0 09/06/20899 Undermining Maximum Distance (cm) 2 0 cm 09/06/20899 Undermining Starting Position (o'clock) 2 0 09/06/20899 Undermining Ending Position (o'clock) 2 0 09/06/20899 Wound Progress Improving 09/06/20 0900 Drainage Amount None 10/18/20 0757 Drainage Description Serosanguineous 07/05/20 0832 Odor None 09/06/20 0900 Wound Margin Attached to wound base 08/02/20 0744 Adherent Yellow Slough % None 09/06/20899 Moist Yellow Slough % None 09/06/20899 Dry Black Eschar % None 09/06/20899 Moist Black Eschar % None 09/06/20899 Epithelialization % 76-100% 09/06/20899 Granulation % None 09/06/20899 Exposed Structure None 09/06/20899 Wound Bed Characteristics Clean;Dry;Intact 09/06/20899 Angeli-wound Assessment Temperature WNL 09/06/20899 Hemostasis Not applicable 09/06/20899 Cleansed Soap and water 09/06/20899 Primary Dressing Collagen with silver 08/23/20826 Secondary Dressing Foam 08/02/20999 Compression Dressing Zechariah wrap;Tubilar eleastic bandage 09/06/20899 I have personally reviewed the labs and results Test results Laboratory and Additional Data Reviewed: Date: 10/18/2020 New labs/ results as of last note: 09/06/2021 I have personally reviewed all labs and other results Labs and additional data reviewed: 09/06/2021 X-Ray Right tib/fib FINDINGS: The 2-view study of the right leg shows progressive healing at the tibial shaft fracture site located at the [id number] one-third tibia. The fracture is crossed by a [id number] tibial medullary tommy, with a locking screw seen near the mid shaft level of the tibia. Proximal tibia and fibula appeared satisfactory. Surgical resection of the distal fibula redemonstrated. IMPRESSION: Progressive healing of fracture at the junction of the middle and distal one- third of the right tibia, which is again noted to be immobilized by a [id number] tibial medullary tommy. Stable resection changes distal articular aspect of the fibula. Current culture: 08/02/2020 Right leg, aerobic culture: Normal chalino after 48 hours. Current Antibiotics: Doxycycline 100 mg po daily through Oct, 2020. Previous Antibiotics: Maxipime 2 grams IV every 12 hours Doxycycline 100 mg PO daily until June 03, suppressive treatment Merrem 1,000 mg IV every 12 Hours Rocephin 2 gm IV every 24 Hours until 01/02/2020 Ancef 2,000 mg IV Dressings: Right great toe: tubigrip, zechariah. Date: 09/06/2020 No new labs/ results as of last note: 08/23/2020 Update from previous note 08/23/2020 X-Ray Right tib/fib FINDINGS: AP and lateral views of right lower leg obtained. There is a stable tibiotalocalcaneal fixation rodfixated in the mid tibial diaphysis with transverse screw and calcaneus with a longitudinal calcaneal pin. This bridges a distal tibial transverse fracture. There are increasing small amounts of perio steal calcification with subtle signs of rigid bony fusion in a few locations. Fracture plane remains visible. There is a cortical screw also fusing the ankle joint positioned more medially also appear grossly intact. The distal fibula has been resected. The tarsal bones are not visualized or collapsed yet unchanged in appearance. IMPRESSION: 1. Partial healing of distal tibial transverse fracture without definitive signs of rigid bony fusion. 2. Grossly intact ankle joint fusion hardware as described. 3. Unchanged tarsal bone configuration. Current culture: 08/02/2020 Right leg, aerobic culture: Normal chalino after 48 hours. Current Antibiotics: Doxycycline 100 mg po daily through 10/2020 Previous Antibiotics: Maxipime 2 grams IV every 12 hours Doxycycline 100 mg PO daily until June 03, suppressive treatment Merrem 1,000 mg IV every 12 Hours Rocephin 2 gm IV every 24 Hours until 01/02/2020 Ancef 2,000 mg IV Dressings: Right great toe: Kb, DSD per Dr. Mora Right lower leg: Cast per Dr. Mora Date: 08/23/2020 New labs/ results as of last note: 08/09/2020 Last WBC 6.14 on 11 6 Hemoglobin 11.2 hematocrit 35.1 platelet count 230 BUN 20 creatinine 1.09 sed rate 32 CRP less than 2.9 08/09/2020 X-Ray right tib/fib FINDINGS: Two views of the right tibia and fibula were obtained. There is redemonstration of transverse fracture in the distal tibial diaphysis status post placement retrograde intramedullary nail with calcaneal and interlocking screws in place. Fracture line remains visible without bridging callus formation. Postsurgical findings of distal fibular resection and cannulated ankle and subtalar joint screw are again noted. Soft tissue edema is noted around the leg and ankle., IMPRESSION: Redemonstration of distal tibial diaphysis fracture, status post ORIF without change in alignment or bridging callus formation. Additional postsurgical findings in the ankle and hindfoot with soft tissue edema. Update from previous note Current culture: 08/02/2020 Right leg, aerobic culture: Normal chalino after 48 hours. Current Antibiotics: Doxycycline 100 mg po Daily through 10/2020 Previous Antibiotics: Maxipime 2 grams IV every 12 hours Doxycycline 100 mg PO daily until June 03, suppressive treatment Merrem 1,000 mg IV every 12 Hours Rocephin 2 gm IV every 24 Hours until 01/02/2020 Ancef 2,000 mg IV Dressings: Right leg: Below the knee cast per Dr. Mora Date: 08/09/2020 New labs/ results as of last note: 08/02/2020 I have personally reviewed all labs and other results. Labs and additional results reviewed: 08/02/2020 X-ray right tib/fib FINDINGS: Intramedullary tommy is noted in the tibial shaft. Additional screws and pins are noted in hindfoot. The hardware appears intact. Resection of the distal fibula is again noted. There is the transverse fracture through the distal tibial shaft that is new from the prior study. IMPRESSION: New acute fractures in the distal tibial shaft. 08/02/2020 X-ray right ankle FINDINGS: RIGHT TIBIA FIBULA: Retrograde intramedullary tommy through the calcaneus, talus extending to the mid tibia with a singleproximal tibial screw redemonstrated. Separate retrograde orthopedic screw extending through the calcaneus, talus and to the distal tibia. There is a new acute transverse fracture involving the [id number] diaphyseal shaft of the tibia surrounding the intact intramedullary tommy. Additional lag screw through the calcaneus. Resection of the distal fibula redemonstrated. Some mild generalized soft tissue edema. RIGHT ANKLE: Orthopedic changes about the proximal foot redemonstrated as described above. Severe degenerative changes of the visualized midfoot. Prominent inferior and moderate superior calcaneal spur redemonstrated. Some bony fragmentation along the lateral aspect of the ankle and some ossification along the plantar fascial region redemonstrated. Soft tissue edema about the ankle. IMPRESSION: 1. New acute transverse fracture involving the distal diaphyseal shaft is in good alignment and surrounds an intact retrograde intramedullary tommy extending through the calcaneus, talus into the mid tibial region with a single proximal tibial screw. 2. Stable orthopedic fixation of the ankle as described above. 3. Prior resection of the distal fibula redemonstrated. 4. Some mild soft tissue edema of the lower extremity including the ankle. GJT/ges Update from previous note Current culture: 08/02/2020 Right leg, aerobic culture: Normal chalino after 48 hours. Current Antibiotics: Doxycycline 100 mg po Daily through 10/2020 Previous Antibiotics: Maxipime 2 grams IV every 12 hours Doxycycline 100 mg PO daily until June 03, suppressive treatment Merrem 1,000 mg IV every 12 Hours Rocephin 2 gm IV every 24 Hours until 01/02/2020 Ancef 2,000 mg IV Dressings: Right leg: Cellerate and bacitracin Right great toe: Kb Date: 08/02/2020 No new labs/ results as of last note: 07/12/2020 X-rays right leg taken 07/24/[address] Archer's [place] office. Per patient, Dr. Archer told him Update from previous note Current Antibiotics: Doxycycline 100 mg po Daily through 10/2020 Previous Antibiotics: Maxipime 2 grams IV every 12 hours Doxycycline 100 mg PO daily until June 03, suppressive treatment Merrem 1,000 mg IV every 12 Hours Rocephin 2 gm IV every 24 Hours until 01/02/2020 Ancef 2,000 mg IV Current culture: 07/12/2020 Right great toe, aerobic culture: Normal chalino after 48 hours. Dressings: Right great toe: Kb Right leg: Kerlix, zechariah. Date: 06/07/2020 New labs/ results as of last note: 05/24/2020 Labs and other data reviewed: CBC Auto Differential Component Ref Range & Units 12d ago (05/24/20) 1mo ago (05/03/20) 1mo ago (05/02/20) 1mo ago (05/01/20) 1mo ago (04/26/20) 3mo ago (02/09/20) 5mo ago (12/28/19) WBC 4.50 - 11.00 K/mcL 4.09Low 6.78 8.37 6.59 6.01 4.66 RBC 4.50 - 5.90 M/mcL 3.80Low 3.46Low 3.58Low 4.91 4.53 4.42Low Hemoglobin 13.5 - 17.5 g/dL 10.8Low 9.8Low 10.3Low 12.6Low 14.0 12.1Low 11.6Low Hematocrit 41.0 - 53.0 % 32.4Low 30.0Low 30.8Low 37.8Low 42.4 38.2Low 38.0Low MCV 80.0 - 100.0 fL 85.3 86.7 86.0 86.4 84.3 86.0 MCH 26.0 - 34.0 pg 28.4 28.3 28.8 28.5 26.7 26.2 MCHC 31.0 - 37.0 g/dL 33.3 32.7 33.4 33.0 31.7 30.5Low Platelets 150 - 400 K/mcL 169 139Low 163 230 196 182 Comprehensive Metabolic Panel Component Ref Range & Units 12d ago (05/24/20) 1mo ago (05/03/20) 1mo ago (05/02/20) 1mo ago (05/01/20) 3mo ago (02/09/20) 5mo ago (12/28/19) 5mo ago (12/18/19) Sodium 135 - 145 mmol/L 141 138 140 142 142 142 142 Potassium 3.5 - 5.1 mmol/L 4.2 4.3 5.1 4.4 4.3 4.3 4.5 Chloride 98 - 108 mmol/L 110High 106 106 110High 109High 109High 106 Bicarbonate 21 - 32 mmol/L 26 27 28 27 28 31 25 Anion Gap 10 - 20 mmol/L 9Low 9Low 11 9Low 9Low 6Low 16 Glucose 65 - 99 mg/dL 171High 157High 262High 114High 205High 135High 82 BUN 8 - 25 mg/dL 17 29High 22 16 22 18 23 Creatinine 0.50 - 1.30 mg/dL 0.84 1.42High 1.51High 0.94 0.94 0.71 1.04 eGFR >=60 mL/min/1.73 m2 97 54Low 51Low 90 90 104 79 BUN/Creatinine Ratio 10.0 - 20.0 20.2High 20.4High 14.6 17.0 23.4High 25.4High 22.1High Total Protein 6.0 - 8.0 g/dL 6.6 6.3 6.9 7.0 7.2 Albumin 3.2 - 5.2 g/dL 3.2 3.0Low 3.5 3.1Low 3.0Low Calcium 8.4 - 10.2 mg/dL 9.3 8.1Low 8.3Low 9.1 9.2 9.2 9.6 Alkaline Phosphatase 40 - 150 U/L 95 52 72 93 94 AST 0 - 45 U/L 14 11 14 16 20 Total Bilirubin 0.0 - 1.3 mg/dL 0.3 0.3 0.3 0.4 0.3 ALT 14 - 65 U/L 21 11Low 19 19 27 CRP, Inflammation Component Ref Range & Units 12d ago (05/24/20) 1mo ago (05/03/20) 3mo ago (02/09/20) 5mo ago (12/28/19) 5mo ago (12/18/19) 5mo ago (12/12/19) 6mo ago (12/05/19) CRP(Inflammation) <=10.0 mg/L 7.0 92.3High 5.7 6.4 18.7High 52.4High 85.3High Sedimentation Rate Order: [id number] Status: Final result Visible to patient: No (not released) Next appt: 06/07/2020 at 08:30 AM in Wound Care (Maria Isabel Awad MD) Dx: Elevated C-reactive protein (CRP); El... Component Ref Range & Units 12d ago (05/24/20) 1mo ago (05/03/20) 1mo ago (04/26/20) 3mo ago (02/09/20) 5mo ago (12/28/19) 5mo ago (12/18/19) 5mo ago (12/12/19) Sed Rate 0 - 20 mm/hr 36High 45High 23High 24High 33High 72High 91High 05/24/2020 X-Ray Right ankle IMPRESSION: Postsurgical changes without acute osseous abnormality. 05/24/2020 X-Ray Right Foot IMPRESSION: Postsurgical changes without acute osseous abnormality. Update from previous note Current Antibiotics: Doxycycline 100 mg PO BID through 06/18/2020, then one tablet daily for 6 months. Previous Antibiotics: Maxipime 2 grams IV every 12 hours Doxycycline 100 mg PO daily until June 03, suppressive treatment Merrem 1,000 mg IV every 12 Hours Rocephin 2 gm IV every 24 Hours until 01/02/2020 Ancef 2,000 mg IV Update from previous note Current Cultures: 05/02/2020 Urine Aerobic Culture: No Growth. Final. 05/02/2020 Blood Culture #2: In Progress; No Growth after 5 days. Final. 05/02/2020 Blood Culture #1: In Progress; No Growth after 5 days. Final. Dressings: per Dr. Mora Right great toe: Betadine, DSD Right lower extremity: Cast Date: 05/24/2020 No new labs/ results as of last note: 05/10/2020 Update from previous note Current Antibiotics: Doxycycline 100 mg PO BID. Last day 06/02/2020. Previous Antibiotics: Maxipime 2 grams IV every 12 hours Doxycycline 100 mg PO daily until June 03, suppressive treatment Merrem 1,000 mg IV every 12 Hours Rocephin 2 gm IV every 24 Hours until 01/02/2020 Ancef 2,000 mg IV Update from previous note Current Cultures: 05/02/2020 Urine Aerobic Culture: No Growth. Final. 05/02/2020 Blood Culture #2: In Progress; No Growth after 5 days. Final. 05/02/2020 Blood Culture #1: In Progress; No Growth after 5 days. Final. Dressing: Per Dr. Mora Date: 05/10/2020 No new labs/ results as of last note: 05/03/2020 Current Antibiotics: Doxycycline 100 mg PO BID Previous Antibiotics: Maxipime 2 grams IV every 12 hours Doxycycline 100 mg PO daily until June 03, suppressive treatment Merrem 1,000 mg IV every 12 Hours Rocephin 2 gm IV every 24 Hours until 01/02/2020 Ancef 2,000 mg IV Update from previous note Current Cultures: 05/02/2020 Urine Aerobic Culture: No Growth. Final. 05/02/2020 Blood Culture #2: In Progress; No Growth after 5 days. Final. 05/02/2020 Blood Culture #1: In Progress; No Growth after 5 days. Final. Dressing: Per Dr. Mora Date: 05/03/2020 New labs/results as of last note Update from previous note Tmax: 98.8 Urine Output: 700 Stool: not recorded Current Antibiotics: Maxipime 2 gm IV every 12 Hours Previous Antibiotics: Doxycycline 100 mg PO daily until June 03, suppressive treatment Merrem 1,000 mg IV every 12 Hours Rocephin 2 gm IV every 24 Hours until 01/02/2020 Ancef 2,000 mg IV I have personally reviewed the labs and results Test results Laboratory and Additional Data Reviewed: Labs: CBC 05/03/2020 03:54 WBC: 6.78 RBC: 3.46 Hgb: 9.8 Hct: 30.0 Platelets: 139 Lymphocytes Abs: 0.89 Monocytes Abs: 0.91 CMP 05/03/2020 03:54 Glucose: 157 BUN: 29 Creatinine: 1.42 Sodium: 138 Potassium: 4.3 Total Protein: 6.3 Albumin: 3.0 Calcium: 8.1 Alk Phos: 52 AST: 11 ALT: 11 Total Bilirubin: 0.3 CRP 05/03/2020 03:54 92.3 Sed Rate 05/03/2020 03:54 45 U/A 05/02/2020 18:46 Clarity: Cloudy Specific [place]: 1.031 Protein: 100 Ketones: Trace Blood: Small Leukocyte Esterase: Large WBCS: 84 RBCS: 16 Bacteria: Many WBC Clumps: Many Hyaline Casts: 11-20 Amorphous Crystals: Few Mucus: Rare Current Cultures: 05/02/2020 Urine Aerobic Culture: No Growth, Incubation Continued. Preliminary. 05/02/2020 Blood Culture #2: In Progress; No Growth to Date. Preliminary. 05/02/2020 Blood Culture #1: In Progress; No Growth to Date. Preliminary. 04/28/2020 COVID-19, Molecular SARS-CoV-2 RNA: Not Detected. Final. Radiology: Right Ankle X-Ray 05/02/2020 FINDINGS: Fourteen spot fluoroscopic images were obtained in the operating room. Fluoroscopic technique limits osseous and soft tissue detail. Images demonstrate hindfoot and ankle joint arthrodesis with tibial intramedullary tommy extending through the calcaneus and talus. An additional cannulated lag screw is present on the final images, and a transcalcaneal fixation hardware is present. There is a proximal interlocking screw. A distal fibular osteotomy is present. Alignment appears anatomic. IMPRESSION: Spot fluoroscopic images obtained during right ankle arthrodesis. Please see dictated operative report for full details. Chest X-Ray 04/26/2020 ORDERED Current antibiotic received preop Ancef Previous Antibiotics: Doxycycline 100 mg PO daily until June 03, suppressive treatment Merrem 1,000 mg IV every 12 Hours Rocephin 2 gm IV every 24 Hours until 01/02/2020 Ancef 2,000 mg IV Invalid input(s): CO2 Current Cultures: 04/28/2020 COVID-19, Molecular SARS-CoV-2 RNA: Not Detected. Final. Recent Cultures: 12/28/2019 - Right foot, aerobic culture: Normal Chalino after 48 hours. 12/21/2019 - Right foot, aerobic - normal chalino after 48 hours 12/21/2019 - Right foot, anaerobic: No anaerobic growth at 2 days. 12/10/2019 Right Foot Wound Aerobic Culture: Normal Chalino After 48 Hours. Final 12/10/2019 Right foot wound, anaerobic culture: No anaerobic growth at 2 days. Final 12/08/2019 Urine Aerobic Culture: No Growth (<1,000 CFU/mL). Final. 12/07/2019 Urine Aerobic Culture on arrival to Nursing Rehab Unit: No Growth (<1,000 CFU/mL). Final. 12/02/2019 Right Foot Tissue Aerobic Culture: Normal Chalino After 48 Hours. Final. 12/02/2019 Right Foot Tissue AFB Culture: No Acid Fast Bacilli after 8 weeks. Final. 12/02/2019 Right Foot Tissue Anaerobic Culture: No Anaerobic Growth at 2 Days. Final. 12/02/2019 Right Foot Tissue Fungus Culture: No fungus isolated at 4 weeks. Final. 12/01/2019 Blood Culture #1: No Growth After 5 Days. Final. 12/01/2019 Blood Culture #2: No Growth After 5 Days. Final. 11/30/2019 Right Foot Wound Aerobic Culture: Normal Chalino After 48 Hours. Final. 11/21/2019 Left Leg Wound Aerobic Culture: Normal Chalino After 24 Hours. Final. 11/20/2019 Right Foot Tissue Aerobic Culture: Moderate Growth Enterobacter cloacae complex, S=Youssef Sensitive. Final. 11/20/2019 Right Foot Tissue Anaerobic Culture: No Anaerobic Growth at 2 Days. Final. 11/20/2019 Right Foot Bone Aerobic Culture: Light Growth Enterobacter Cloacae Complex, S=Youssef Sensitive. Final. 11/20/2019 Right Foot Bone Anaerobic Culture: No Anaerobic Growth at 2 Days. Final. 05/30/2019 Right Foot Tissue Aerobic Culture: Normal Chalino After 48 Hours. Final. 05/30/2019 Right Foot Tissue Anaerobic Culture: No Anaerobic Growth at 2 Days. Final. 03/23/2019 Right Foot Wound Aerobic Culture: Heavy Growth Raoultella Planticola, R=Ampicillin, S=Remainder of panel. 03/09/2019 Right Foot Wound Aerobic Culture: Normal Chalino After 48 Hours. Final. 02/09/2019 Right Foot Wound Aerobic Culture: Normal Chalino After 48 Hours. Final. 01/19/2019 Right Toe Two Wound Aerobic Culture: Heavy Growth Enterobacter Cloacae Complex, S=Youssef Sensitive. Final. Radiology: Right Ankle X-Ray 05/02/2020 ORDERED Right Tib/Fib X-Ray 05/01/2020 1. Fusion of the tibia, talus, and calcaneus. Alignment is anatomic. There has been resection of the lateral malleolus. Right Ankle X-Ray 05/01/2020 FINDINGS: Images are obtained with the right ankle in a splint which obscures bony detail. There is interval resection of the distal right fibula. Internal fixation of the right ankle is seen with intramedullary tommy seen in the right tibia traversing the tibiotalar joint. Additional smaller surgical screw isseen traversing the tibiotalar joint. Internal fixation of the calcaneus is also seen with metallicrod. Ankle and calcaneal fractures demonstrate normal alignment. Large plantar calcaneal spur is seen. Advanced degenerative changes are seen about the mid foot. Mild diffuse bony demineralization isseen. IMPRESSION: Images are obtained with the right ankle with in a splint which obscures bony detail. Postsurgical changes are seen, as detailed above with normal alignment. Right Tib/Fib X-Ray 05/01/2020 Status post removal of the external fixator with no acute osseous abnormality in the right tibia orfibula or right ankle. Right Foot X-Ray 05/01/2020 1. Prior external fixator replacement. Extensive deformity in the midfoot related to prior surgicalresection or Charcot changes. Continued subluxation between talus and navicular. 2. 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 Chest X-Ray 04/26/2020 ORDERED Right Foot X-Ray 11/20/2019 IMPRESSION: Intraoperative fluoroscopy for localization during right foot and ankle reconstruction and fixation. Please see operative report for details. Left Ankle X-Ray Ordered 11/20/2019 Right Tib/Fib,Right Foot X-Ray 02/16/2020 FINDINGS: There is extensive hardware from an external fixator present. This obscures fine bony detail.A single percutaneous pin is seen entering the plantar aspect of the foot through the calcaneus, talus, and entering the distal tibia. A 2nd slightly larger metallic tommy is seen entering the posterior calcaneus extending into the talus. Degenerative changes are present in the midfoot. There is soft tissue edema. IMPRESSION: Study is limited due to overlying external fixator. No significant change in alignment. NM White Cell Scan Spot Limited 03/08/2017 FINDINGS: A focal area of intense abnormal white blood cell migration is noted central plantar aspect of the right foot corresponding to the area of the wound demonstrated radiographically. No other focus of white blood cell migration abnormality is evident within the right or left foot. IMPRESSION: Focal area of abnormal white blood cell migration at the plantar aspect central right foot may be at the wound itself or may be involving the bone with associated fracture as demonstrated radiographically. Anatomic detail is insufficient for differentiation between the two. Renal U/S 03/07/2017 IMPRESSION: Severe thickening of the urinary bladder wall. This could be due to outlet obstruction with hypertrophy of the wall. If there is no such history, this should be evaluated with cystoscopy. CVPS: Lower Arterial Doppler: not on file Lower Venous Doppler: not on file 2D Echo 11/23/2019 Moderate LV enlargement with LVH. Global systolic dysfunction with segmental features. LVEF 30% Elevated LV filling pressures RV is dilated with severe RV dysfunction Mild mitral annular calcification, mild thickening of the aortic valve without hemodynamically significant valvular disease There is a atrial level right to left shunt identified with saline contrast with free breathing andValsalva most likely via PFO LVEF unchanged from to previous echo from 2017 Surgeries: Please see above for surgical history Procedure: RIGHT ANKLE ARTHRODESIS, SUBTALAR ARTHRODESIS RIGHT ANKLE, Bone [place] Graft From RightFibula, Application of Splint Date: 05/01/2020 Alena Mora DPM Procedure: RIGHT FOOT RECONSTRUCTION WITH APPLICATION OF CIRCULAR STATIC EXTERNAL FIXATION Date: 11/20/2019 Surgeon: Alena Mora DPM Procedure: ARTHROPLASTY 2ND TOE RIGHT FOOT Date: 01/25/2019 Surgeon: Rosa M Robles DPM Pathology: 12/02/2019 A. Soft tissue, Right Foot, excision: Non-specific ulcer. * Phoebe Duncan RN - 10/18/2020 8:15 AM EST Date: 10/18/2020 New labs/ results as of last note: 09/06/2021 I have personally reviewed all labs and other results Labs and additional data reviewed: 09/06/2021 X-Ray Right tib/fib FINDINGS: The 2-view study of the right leg shows progressive healing at the tibial shaft fracture site located at the [id number] one-third tibia. The fracture is crossed by a wjiahx-lp-ldqxtave tibial medullary tommy, with a locking screw seen near the mid shaft level of the tibia. Proximal tibia and fibula appeared satisfactory. Surgical resection of the distal fibula redemonstrated. IMPRESSION: Progressive healing of fracture at the junction of the middle and distal one- third of the right tibia, which is again noted to be immobilized by a udxrjn-af-boasootp tibial medullary tommy. Stable resection changes distal articular aspect of the fibula. Current culture: 08/02/2020 Right leg, aerobic culture: Normal chalino after 48 hours. Current Antibiotics: Doxycycline 100 mg po daily through Oct, 2020. Previous Antibiotics: Maxipime 2 grams IV every 12 hours Doxycycline 100 mg PO daily until June 03, suppressive treatment Merrem 1,000 mg IV every 12 Hours Rocephin 2 gm IV every 24 Hours until 01/02/2020 Ancef 2,000 mg IV Dressings: Right great toe: tubigrip, zechariah. * Richelle Chance RN - 10/18/2020 7:52 AM EST Nurse wore gloves and mask while taking care of patient. Patient wearing mask at all times while staff in the room. documented in this encounter* Sotero Hendrix MD - 11/24/2019 4:45 PM EST Patient Name: Dyllan Huertas Admit Date: MR #: [id number] : 1960 Physicians: Rohit Aguilar MD (Family); No ref. provider found (Referring) Assessment: Patient with 1: Right Foot Wound infection. With Ulceration. 2: Enterobacter foot infection. Plans: Will continue patient on current therapy. Patient on Cefazolin. DC cefazolin. Start patient on iv ceftriaxone 2 gm. Follow up labs., and Cultures. Dressings as per Paint Roller Covermaker recommendations. I appreciate Paint Roller Covermaker evaluations. Will continue to follow up with you. Subjective: Patient seen today, with no new symptoms, no fever, leg still with external fixators. Exam: PACU Vitals 11/24/19 1541 BP: 102/65 Pulse: 89 Resp: 14 Temp: 98 F (36.7 C) SpO2: 96% Allergies: no known allergies. No current facility-administered medications for this encounter. Current Outpatient Medications: calcium carbonate 400 mg Chew, Chew and Swallow 1,000 mg daily ., Disp: , Rfl: docusate sodium (COLACE) 100 MG capsule, Take 100 mg by mouth daily ., Disp: , Rfl: FENOFIBRATE MICRONIZED ORAL, Take 160 mg by mouth daily ., Disp: , Rfl: gabapentin (NEURONTIN) 300 MG capsule, gabapentin GABAPENTIN 300 MG CAPS One tablet by mouth daily GABAPENTIN [id number] Sebastián Dailey MD 06-15-2017 [facility] ([id number]), Disp: , Rfl: insulin glargine (LANTUS) 100 unit/mL (3 mL) InPn, Inject 50 Units under the skin nightly ., Disp: , Rfl: levothyroxine (SYNTHROID, LEVOTHROID) 112 MCG tablet, once daily ., Disp: , Rfl: lisinopril (PRINIVIL,ZESTRIL) 20 MG tablet, 20 mg 2 (two) times a day ., Disp: , Rfl: magnesium oxide (MAG-OX) 400 mg (241.3 mg magnesium) tablet, Take 400 mg by mouth daily ., Disp: , Rfl: melatonin 5 mg Tab, Take 10 mg by mouth daily ., Disp: , Rfl: metFORMIN (GLUCOPHAGE-XR) 500 MG 24 hr tablet, 1,000 mg 2 (two) times a day ., Disp: , Rfl: multivitamin (THERAGRAN) per tablet, Take 1 tablet by mouth daily ., Disp: , Rfl: NovoLIN R Regular U-100 Insuln 100 unit/mL injection, INJECT 50 UNITS SUBCUTANEOUSLY 3 TIMES DAILY WITH MEALS WITH ADDITIONAL PER SLIDING SCALE, Disp: , Rfl: rosuvastatin (CRESTOR) 20 MG tablet, 20 mg daily ., Disp: , Rfl: tamsulosin (FLOMAX) 0.4 mg capsule, tamsulosin TAMSULOSIN HCL 0.4 MG CAPS One tablet by mouth [id number] TAMSULOSIN HCL [id number] Sebastián Dailey MD 06-15-2017 [facility] ([id number]), Disp: , Rfl: [START ON 11/25/2019] aspirin 81 MG EC tablet, Take 2 (two) tablets (162 mg total) by mouth daily Start: 11/25/19., Disp: 60 tablet, Rfl: 0 carvediloL (COREG) 6.25 MG tablet, Take 2 (two) tablets (12.5 mg total) by mouth every 12 (twelve) hours ., Disp: 120 tablet, Rfl: 0 finasteride (PROSCAR) 5 mg tablet, Take 2.5 mg by mouth every night at bedtime Wednesday,WED,WED ., Disp: , Rfl: PMH/PSH/SH/FH reviewed, no change : Review of Systems: All systems were reviewed no change: Medications Reviewed. Chart Reviewed. Exam Findings: HEENT: Atraumatic/Pupils equal & reactive Neck: Supple, no rigidity ENT: No oral candidiasis Chest: Lungs clear bilaterally, no wheezing, or rales CVS: Normal S1 & S2+, Normal Rhythm Abdomen: Obese, normal symmetry, Soft/non-tender. Benign, BS+ Extremities: No Deformities, external fixator in place in the right leg and foot Skin: Intact & No Rashes, or excoriations Musculoskeletal: No joint swelling, non tender MANAGER OF CASE MANAGEMENT: Awake, and Ox3 Wound: Wound with external fixators. Wound (Outpatient Only) 03/31/19 Foot Anterior;Right;Plantar (Active) Schulte Catheter: Yes IV Access: Yes I reviewed Medications. I reviewed Labs. Laboratory and Additional Data Reviewed: Laboratory 11/24/19 8:12 PM Microbiology 11/24/19 8:12 PM Radiology 11/24/19 8:12 PM XR Chest 1 View Final Result 1. Right arm PICC line in place with tip in superior vena cava. 2. No acute pulmonary disease. 3. Cardiomegaly with evidence of prior open heart surgery. 4. No acute osseous abnormality. GJT/ads Workstation ID: [id number] Echocardiogram complete w contrast Final Result Moderate LV enlargement with LVH. Global systolic dysfunction with segmental features. LVEF 30% XR OR Foot Rt 3+ Views Final Result Intraoperative fluoroscopy for localization during right foot and ankle reconstruction and fixation. Please see operative report for details. Workstation ID: [id number] XR Foot Right 2 Views Final Result 1. Advanced changes of Charcot arthropathy throughout the right midfoot which appear unchanged compared to prior examination. [facility]/v Workstation ID: [id number] XR Ankle Left 3+ Views (Standard) (Results Pending) Medications 11/24/19 8:12 PM Lab Results Component Value Date WBC 6.02 11/24/2019 HGB 10.1 (L) 11/24/2019 HCT 32.9 (L) 11/24/2019 MCV 89.6 11/24/2019 PLT 161 11/24/2019 Lab Results Component Value Date GLUCOSE 112 (H) 11/24/2019 CALCIUM 8.4 11/21/2019 NA 142 11/24/2019 K 4.5 11/24/2019 CL 109 (H) 11/24/2019 BUN 49 (H) 11/24/2019 CREATININE 1.64 (H) 11/24/2019 Problem List Items Addressed This Visit Endocrine 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) - Primary Relevant Medications insulin glargine (LANTUS) 100 unit/mL (3 mL) InPn Other Relevant Orders Ambulatory ref to [facility] Other * (Principal) Right foot ulcer (HCC) Other Visit Diagnoses Acute osteomyelitis (HCC) Relevant Medications ceFAZolin (ANCEF) IVPB 2 g (premix) (Completed) ceFAZolin (ANCEF) IVPB 2 g (premix) (Completed) 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 Relevant Medications ceFAZolin (ANCEF) IVPB 2 g (premix) (Completed) ceFAZolin (ANCEF) IVPB 2 g (premix) (Completed) Gram-negative infection Relevant Medications ceFAZolin (ANCEF) IVPB 2 g (premix) (Completed) ceFAZolin (ANCEF) IVPB 2 g (premix) (Completed) IDDM (insulin dependent diabetes mellitus) (HCC) Relevant Medications insulin glargine (LANTUS) 100 unit/mL (3 mL) InPn I discussed my management plans with Patient/and or Family member, and also discussed antibiotics therapy including side effects with Patient/and or Family member. Medical Decision Making: Moderate This note is created with the assistance of a speech-recognition program. While intending to generate a document that actually reflects the content of the visit, the document can still have some errors including those of syntax and sound a- like substitutions which may escape proofreading. In such instances, actual meaning can be extrapolated by contextual derivation. * Alena Mora DPM - 11/24/2019 4:39 PM EST Progress Inpatient Follow-up 11/24/2019 Alena Mora DPM [facility] Patient: Dyllan Huertas Date of : 1960 (59 y.o.) PCP: Rohit Aguilar MD ASSESSMENT/PLAN: Dyllan Huertas 59 y.o. male with history of Charcot deformity of the right foot with osteomyelitis. Patient is POD#4 Status post midfoot wedge resection of the right foot and application of external fixator. (date of surgery 11/20/2019) - Doing well Plan: Patient was seen and evaluated. Discussed all clinical findings Dressing was changed today. Patient is doing well at this time and pain is well controlled. Patient was seen by physical therapy and Occupational Therapy with recommendation for a rehab facility. I agree with the recommendation. Agree with Dr. Awad regarding her antibiotic course of treatment. Patient has an PICC line now. Strict NWB to RLE Continue DVT prophylaxis Ordered pin care by nursing. See Physician Instructions and Wound Care instructions Follow up at the Wound Care center in 1 week with me and Dr. Awad Subjective: He states that his pain is well controlled. No new pedal complaints at this time.Denies fevers, chills, nausea, vomiting, chest pain, shortness of breath, or any other constitutional symptoms. Physical Exam: DP and PT pulses are weakly palpable 1/4 secondary to +1 pitting edema as expected postoperatively.Cap refill time is brisk to distal digits. Skin temperature is warm to warm from proximal tibial tuberosity to distal digits. A circular static external fixation is intact to the right lower extremity. Pins and wire are notedwithout any erythema, or edema noted. No drainage. Gross sensation is intact. Protective sensation is absent. Patient is able to wiggle digits. Compartments are soft and compressible. No calf pain. * Elizabeth Khan LISW - 11/24/2019 3:19 PM EST DISCHARGE PLAN PROGRESS NOTE Date: 11/24/2019 Time: 3:19 PM Patient Name: Dyllan Huertas Date of : 1960 Sex: Male Received a call from Jace at the [facility] reporting they have received precert and can acceptthe patient today. Notified nursing staff who contacted Dr. Crews for discharge orders. Notified Juan Silva, of the need for transport. GABRIELE Rich Discharge Readiness Expected Discharge Date: 11/17/19 Barriers to Discharge: Pre-certification [facility] Disposition D/C Disposition: [facility] Agency/Destination: [facility] Estimated Length of Stay (ELOS): (42) PAS/RR: PAS Options Reviewed: List provided Reason for Choice: Patient/Family preference Anticipated Discharge Plan Anticipated HME: None Anticipated Facility Type: [facility] * Elizabeth Khan LISW - 11/24/2019 2:15 PM EST DISCHARGE PLAN PROGRESS NOTE Date: 11/24/2019 Time: 2:16 PM Patient Name: Dyllan Huertas Date of : 1960 Sex: Male Patient can discharge once precert is received. Called and left a message updating [place] with the [facility]. Care management will continue to follow. GABREILE Rich Discharge Readiness Expected Discharge Date: 11/17/19 Barriers to Discharge: Pre-certification [facility] Disposition D/C Disposition: [facility] Agency/Destination: [facility] Estimated Length of Stay (ELOS): (42) PAS/RR: PAS Options Reviewed: List provided Reason for Choice: Patient/Family preference Anticipated Discharge Plan Anticipated HME: None Anticipated Facility Type: [facility] * Maria Isabel Awad MD - 11/24/2019 10:33 AM EST 11/24/2019 Patient Name: Dyllan Huertas Admit Date: MR #: [id number] : 1960 Physicians: Rohit Aguilar MD (Family); No ref. provider found (Referring) Assessment and Plan: Impression Right foot ulcer Severe Charcot deformity status post surgical intervention Enterobacter cloaca infection and gram-negative infection see cultures below RaullTela which is a gram-negative Acute osteomyelitis bone culture on 11/20/2019+ for the same pathogen that was present in January 2019is Enterobacter cloaca pansensitive RAJINDER none on chart 11/24/2019 Osteomyelitis as bone culture is positive from 11/20/2019 Plan PICC line placement Rocephin 2 g IV every 24 hours last dose will be December 18 which is 4 weeks total CBC CMP sed rate CRP as baseline and every week on Mondays Send results to Dr. Andrey Awad Will follow patient in the wound clinic with Dr. Mora on I have discussed with the patient as well as Dr. Mora Local care per Dr. Mora Follow-up every week on with myself and Dr. Mora at 8 AM May need to consider longer antibiotics including 2 additional weeks of IV or prolonged p.o. antibiotics for 2 additional months to complete 3 months of treatment I have discussed the patient as well as Dr. Mora Orders have been written given to perinatal social worker Will get a baseline chest x-ray and 2D echo in case we need to consider HBO treatment in the future Chest x-ray no infiltrate 2D echo with ejection fraction of 30% Chief Complaint/Reason for Visit: I am seeing this patient at the request of Dr. Estela MD. I have reviewed the current hospital record, available laboratory, cardiology and imaging studies as well as available out patient records. History of Present Illness: Admission H&P by Nancy Cueto CNP on 11/20/2019: Dyllan Huertas is a 59 y.o. y/o male presenting from OR with complaint of right foot wound. Patient was taken to surgery today for a right foot reconstruction with application of circular static external fixation. Patient has a chronic nonhealing ulceration on the plantar aspect of his right foot secondary to Charcot neuropathy osseous prominence. Patient has noted the wound for several months. The ulceration site failed to heal after several serial wound care debridement and management performance. No other pedal complaints. Patient does however have blisters to the left lower extremity which are weeping, mild redness to the left lower extremity. Patient deniesany fever, chills, nausea, vomiting, constipation, diarrhea, chest pain, palpitations, shortness ofbreath, urinary urgency or frequency. 11/23/2019 Elderly white male with diabetes on disability since 2014 related to a Charcot foot and diabetes developed an ulcer in the beginning of 2018 was being followed by Dr. Robles at the office we have cultures from last year in January with Enterobacter and since then culture with gram-negative bacteria also was seen by Dr. Mora was found to have severe Charcot a corrective surgery was done with placement of an external fixator and infectious disease consult regarding further with antibiotic management his MRI in mid 2018 did not show osteo-no current MRI available With positive cultures then and now same bacteria we will need to treat for persistent infection with at least 4 weeks of IV antibiotic Allergies no known allergies to antibiotic Personal history single does not smoke to the regular alcohol does not use any street drugs Family to nobody with boils his sister lives next to him can assist with care if needed Pets none Is known to have insulin-dependent diabetes He has plate and screws in the wrist and left toe Exam: Tmax: 98.3 Urine Output: 925 Stool: not recorded PACU Vitals 11/24/19 0810 BP: Pulse: Resp: 17 Temp: SpO2: Allergies: no known allergies. Current Facility-Administered Medications: alteplase (CATH AMANDO) injection 2 mg, 2 mg, Other, PRN, Alisa Singh MD aspirin EC tablet 162 mg, 162 mg, Oral, Daily, Nancy Cueto CNP, 162 mg at 11/24/19815 atorvastatin (LIPITOR) tablet 40 mg, 40 mg, Oral, Nightly, Nancy Cueto CNP, 40 mg at 11/23/192045 calcium carbonate (TUMS) chewable tablet 1,000 mg, 1,000 mg, Oral, Daily, Nancy Cueto CNP, 1,000 mg at 11/24/19815 carvediloL (COREG) tablet 12.5 mg, 12.5 mg, Oral, Q12H, Nancy Cueto CNP, 12.5 mg at 209 cefTRIAXone (ROCEPHIN) IVPB 2 g (premix), 2,000 mg, Intravenous, Q24H, Sotero Hendrix MD, Stopped at 11/23/19 1626 docusate sodium (COLACE) capsule 100 mg, 100 mg, Oral, Daily, Nancy Cueto CNP, 100 mg at 11/24/19 0816 fenofibrate tablet 160 mg, 160 mg, Oral, Daily with breakfast, Nancy Cueto CNP, 160 mg at 11/24/19 0816 finasteride (PROSCAR) tablet 2.5 mg, 2.5 mg, Oral, Once per day on Wed, Nancy Cueto CNP, 2.5 mg at 11/22/194 gabapentin (NEURONTIN) capsule 300 mg, 300 mg, Oral, Nightly, Nancy Cueto CNP, 300 mg at 11/23/19 2046 heparin (porcine) injection 5,000 Units, 5,000 Units, Subcutaneous, Q8H LESLEY, Boogie Phan MD, 5,000 Units at 11/24/19 0547 insulin glargine (LANTUS) injection 50 Units, 50 Units, Subcutaneous, Nightly, Nancy Cueto CNP, 50 Units at 11/23/19 2206 insulin lispro (HumaLOG) injection 0-15 Units, 0-15 Units, Subcutaneous, at bedtime, Nancy Cueto CNP insulin lispro (HumaLOG) injection 0-30 Units, 0-30 Units, Subcutaneous, TID AC, Nancy Cueto CNP, 1 Units at 11/23/19 0828 insulin regular (HumuLIN R, NovoLIN R) injection 50 Units, 50 Units, Subcutaneous, TID AC, Nancy Cueto CNP, 50 Units at 11/24/19 0957 levothyroxine (SYNTHROID, LEVOTHROID) tablet 112 mcg, 112 mcg, Oral, Daily, Nancy Cueto CNP,112 mcg at 11/24/19 0547 lidocaine 10 mg/mL (1 %) injection 1 mL, 1 mL, Intradermal, Once PRN, Alisa Singh MD lisinopril (PRINIVIL,ZESTRIL) tablet 20 mg, 20 mg, Oral, BID, Nancy Cueto CNP, 20 mg at 11/23/192208 magnesium oxide (MAG-OX) tablet 400 mg, 400 mg, Oral, Daily, Nancy Cueto CNP, 400 mg at 11/24/19 0816 melatonin Tab 10 mg, 10 mg, Oral, Nightly, Alenadeanna Mora, DPM, 10 mg at 11/23/192045 metFORMIN (GLUCOPHAGE-XR) 24 hr tablet 1,000 mg, 1,000 mg, Oral, BID, Nancy Cueto CNP, 1,000mg at 11/24/19 0816 multivitamin (THERAGRAN) per tablet 1 tablet, 1 tablet, Oral, Daily, Nancy Cueto CNP, 1 tablet at 11/24/19 0816 naloxone (NARCAN) injection 0.1 mg, 0.1 mg, Intravenous, PRN AND Notify physician, , , Until Discontinued AND naloxone (NARCAN) injection 0.4 mg, 0.4 mg, Intravenous, PRN, Lin Julio CNP oxyCODONE-acetaminophen (PERCOCET) 5-325 mg per tablet 1 tablet, 1 tablet, Oral, Q6H PRN, Boogie Phan MD, 1 tablet at 11/23/19 0909 sodium chloride (PF) (NS) flush 10 mL, 10 mL, Intracatheter, Q8H LESLEY, Alisa Singh MD, 10 mL at 11/24/19 0547 sodium chloride (PF) (NS) flush 10-20 mL, 10-20 mL, Intracatheter, PRN, Alisa Singh MD sodium chloride 0.9% (NS), 50 mL/hr, Intravenous, Continuous, Boogie Phan MD, Stopped at11/24/19 0053 tamsulosin (FLOMAX) 24 hr capsule 0.4 mg, 0.4 mg, Oral, After evening meal, Nancy Cueto CNP,0.4 mg at 11/23/192046 PMH/PSH/SH/FH reviewed, no change except: Patient is receiving IV antibiotics in the hospital is pending transfer to [facility] on IV antibiotics Review of Systems: All systems were reviewed and negative except: No fevers no chills no diarrhea denies any pain in the right foot Medications Reviewed. Chart Reviewed. Exam Findings: Constitutional: HENT: Pupils reactive head: No oral candidiasis Eyes: No icterus Neck: Supple Cardiovascular: Heart S1-S2 2 by systolic murmur present no S3 Murmur Pulmonary/Chest: Clear Abdominal: Soft Musculoskeletal: No calf tenderness on the right leg Neurological: Has diabetic neuropathy with Charcot is able to wiggle the toes Skin: Cannot evaluate for cellulitis of the foot Wound: Preop pictures from media reviewed Schulte: Bard Schulte catheter IV: Midline placed in the right arm I think is a PICC line Other: External fixator in place no drainage noted on the dressing I have personally reviewed the labs and results Test results Laboratory and Additional Data Reviewed: 11/24/2019 Current Antibiotics: Rocephin 2 gm IV every 24 Hours Previous Antibiotics: Ancef 2,000 mg IV every 8 Hours Pre/Post Procedure Labs: Chem 7 11/24/2019 03:39 Glucose: 112 BUN: 49 Creatinine: 1.64 Sodium: 142 Potassium: 4.5 CBC 11/24/2019 03:39 WBC: 6.02 Hgb: 10.1 Hct: 32.9 Platelets: 161 Lymphocytes Abs: 0.66 Magnesium 11/24/2019 03:39 2.1 Results from last 7 days Lab Units 11/23/19 0407 11/22/199 11/21/19 0643 11/20/19 1035 SODIUM mmol/L 138 139 139 142 POTASSIUM mmol/L 4.6 4.2 4.9 4.4 CHLORIDE mmol/L 106 105 107 108 BUN mg/dL 35* 25 28* 24 CREATININE mg/dL 1.31* 1.20 1.38* 1.11 GLUCOSE mg/dL 111* 180* 229* 119* CALCIUM mg/dL -- -- 8.4 9.6 Results from last 7 days Lab Units 11/23/19 0407 11/22/19 0449 11/21/19 0643 WBC K/mcL 8.29 11.19* 8.73 HGB g/dL 9.9* 11.2* 11.7* HCT % 32.8* 35.9* 36.9* PLT K/mcL 132* 155 203 Current Cultures: 11/21/2019 Left Leg Wound Aerobic Culture: Normal Chalino After 24 Hours. Final. 11/20/2019 Right Foot Tissue Aerobic Culture: Moderate Growth Enterobacter cloacae complex, S=Youssef Sensitive. Final. 11/20/2019 Right Foot Tissue Anaerobic Culture: No Anaerobic Growth at 2 Days. Final. 11/20/2019 Right Foot Bone Aerobic Culture: Light Growth Enterobacter Cloacae Complex, S=Youssef Sensitive. Final. 11/20/2019 Right Foot Bone Anaerobic Culture: No Anaerobic Growth at 2 Days. Final. Recent Cultures: 05/30/2019 Right Foot Tissue Aerobic Culture: Normal Chalino After 48 Hours. Final. 05/30/2019 Right Foot Tissue Anaerobic Culture: No Anaerobic Growth at 2 Days. Final. 03/23/2019 Right Foot Wound Aerobic Culture: Heavy Growth Raoultella [place], R=Ampicillin, S=Remainder of panel. 03/09/2019 Right Foot Wound Aerobic Culture: Normal Chalino After 48 Hours. Final. 02/09/2019 Right Foot Wound Aerobic Culture: Normal Chalino After 48 Hours. Final. 01/19/2019 Right Toe Two Wound Aerobic Culture: Heavy Growth Enterobacter Cloacae Complex, S=Youssef Sensitive. Final. Radiology: Chest X-Ray 11/23/2019 1. Right arm PICC line in place with tip in superior vena cava. 2. No acute pulmonary disease. 3. Cardiomegaly with evidence of prior open heart surgery. 4. No acute osseous abnormality. Right Foot X-Ray 11/20/2019 IMPRESSION: Intraoperative fluoroscopy for localization during right foot and ankle reconstruction and fixation. Please see operative report for details. Left Ankle X-Ray Ordered 11/20/2019 Right Foot X-Ray 11/20/2019 FINDINGS: Two views of the right foot were obtained. There are advanced changes of Charcot arthropathy throughout the right midfoot which appears similar compared to prior examination. There are postsurgical changes of resection of the right 2nd toe proximal phalangeal head. IMPRESSION: 1. Advanced changes of Charcot arthropathy throughout the right midfoot which appear unchanged compared to prior examination. Chest AP/PA X-Ray 11/16/2019 1. No acute pulmonary disease. 2. Cardiomegaly, with evidence of prior open heart surgery. 3. Multilevel degenerative changes of the thoracic spine. MR Right Foot 05/19/2019 1. There is a superficial soft tissue ulcer again seen along the plantar aspect of the midfoot, butthere is no evidence of abscess or osteomyelitis in this region. 2. Stable appearance of the sequela of severe neuropathic arthropathy of the midfoot with collapse of the midfoot again seen resulting in a rocker bottom deformity. 3. A moderate amount of diffuse subcutaneous edema along the dorsum of the foot may be due to reactive edema or a cellulitis, but this is nonspecific. Right Foot X-Ray 04/28/2019 1. Soft tissue irregularity involving the plantar aspect of the foot likely representing the reported ulcer. No bony destruction to suggest osteomyelitis. 2. No evidence of radiopaque foreign body. 3. Stable deformity and degenerative changes involving the midfoot. Findings are consistent with Charcot joint. NM White Cell Scan Spot Limited 03/08/2017 FINDINGS: A focal area of intense abnormal white blood cell migration is noted central plantar aspect of the right foot corresponding to the area of the wound demonstrated radiographically. No other focus of white blood cell migration abnormality is evident within the right or left foot. IMPRESSION: Focal area of abnormal white blood cell migration at the plantar aspect central right foot may be at the wound itself or may be involving the bone with associated fracture as demonstrated radiographically. Anatomic detail is insufficient for differentiation between the two. Renal U/S 03/07/2017 IMPRESSION: Severe thickening of the urinary bladder wall. This could be due to outlet obstruction with hypertrophy of the wall. If there is no such history, this should be evaluated with cystoscopy. CVPS: Arterial Doppler: not on file Venous Doppler: not on file 2D Echo 11/23/2019 Moderate LV enlargement with LVH. Global systolic dysfunction with segmental features. LVEF 30% Elevated LV filling pressures RV is dilated with severe RV dysfunction Mild mitral annular calcification, mild thickening of the aortic valve without hemodynamically significant valvular disease There is a atrial level right to left shunt identified with saline contrast with free breathing andValsalva most likely via PFO LVEF unchanged from to previous echo from 2017 Surgeries: Please see above for surgical history Procedure: RIGHT FOOT RECONSTRUCTION WITH APPLICATION OF CIRCULAR STATIC EXTERNAL FIXATION Date: 11/20/2019 Surgeon: Alena Mora DPM Procedure in Detail: I saw the patient in the preoperative holding area and the operative site was marked. The patient was then brought to the operating room placed on the table in a supine position. A formal timeout wasperformed indicating the patient's name, date of , site/side and procedure to be performed. All parties were in agreement. A pneumatic ankle tourniquet was placed about the right/left ankle. Following IV sedation, local anesthesia was obtained about the right/left ankle utilizing a 1 1 mixtureof 1% lidocaine plain and 0.25% Marcaine plain. The foot was then scrubbed, prepped and draped in the usual aseptic manner. An Esmarch was then used to accentuate the patient's right/left foot and the tourniquet was inflated Upon completion of the procedure, the incision site was dressed with Xeroform, 4 x 4's, light Kerlix and dry sterile dressing.The tourniquet was then deflated and a prompt hyperemic response was noted to all digits of the right/left foot. An Zechariah bandage was applied to the right/left foot. I was present for the entirety of the surgery. The patient tolerated procedure and anesthesia well and was transferred to the PACU vital signs stable and vascular status intact to the right/left foot. Following a period of postoperative monitoring, the patient will be discharged home with instructions and prescriptions. Procedure: ARTHROPLASTY 2ND TOE RIGHT FOOT Date: 01/25/2019 Surgeon: Rosa M Robles DPM Pathology: not on file * Man Crews MD - 11/24/2019 9:22 AM EST [facility] Inpatient Follow-up 11/24/2019 Man Crews MD [facility] Patient: Dyllan Huertas Date of : 1960 (59 y.o.) PCP: Rohit Aguilar MD ASSESSMENT/PLAN: Dyllan Huertas 59 y.o. 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 Pain control, will add po percocet to IV dilaudid DVT ppx will start sq heparin Cont diabetic management, lantus 50 qhs and ISS Scr higher today will start gentle hydration 11/22 Feeling good no new complain Waiting for [facility] to a jail 11/23 Infectious Disease consult for long-term antibiotics patient will need IV antibiotics for 4 to 6 weeks. Insert PICC line Plan to discharge to ECF when okay with ID and podiatry 11/24 -- SEEN AND EXAMINED -- RIGHT FOOT RECONSTRUCTION WITH APPLICATION OF CIRCULAR STATIC EXTERNAL FIXATION -- CLINICALLY STABLE -- NO COMPLAINTS -- HAD PICC LINE -- DC PLANNING: SNF ON IV ATB PER ID FOR 4 WEEKS SUBJECTIVE: Pain 11/13 rt ankle No sob All other systems reviewed and negative other than noted above. OBJECTIVE: Physical Examination: BP 98/61 (BP Location: Left arm, Patient Position: Lying) Pulse 82 Temp 98.4 F (36.9 C) (Oral) Resp 17 Ht 5' 11 Wt 129.4 kg (285 lb 4.4 oz) SpO2 96% BMI 39.79 kg/m General Appearance: Alert, well appearing, and in no acute distress. HEENT: Head - Normocephalic, atraumatic. Eyes - ALEKS bilaterally and EOMI. Ears - normal external appearance, hearing intact. Nose - normal, no erythema. Throat - mucous membranes moist, pharynx without lesions. Neck: Supple, trachea midline. Cardiovascular: S1, S2 normal. No murmurs, rubs, clicks or gallops appreciated. No pedal edema. Respiratory: Lungs clear to auscultation, no wheezes, rales or rhonchi heard. Abdomen: Soft, non-tender, normal bowel sounds, non-distended, no masses or organomegaly appreciated. Neurological: Grossly normal motor and sensory exam. No focal deficits. Musculoskeletal: Status post surgery right foot with external fixator Skin: Normal coloration and turgor. No rashes. Psych: Alert, oriented x 3. Normal mood and affect. CURRENT MEDICATIONS: aspirin 162 mg Oral Daily atorvastatin 40 mg Oral Nightly calcium carbonate 1,000 mg Oral Daily carvediloL 12.5 mg Oral Q12H cefTRIAXone (ROCEPHIN) IVPB 2,000 mg Intravenous Q24H docusate sodium 100 mg Oral Daily fenofibrate 160 mg Oral Daily with breakfast finasteride 2.5 mg Oral Once per day on Wed gabapentin 300 mg Oral Nightly heparin (porcine) 5,000 Units Subcutaneous Q8H [facility] insulin glargine 50 Units Subcutaneous Nightly lispro insulin 0-15 Units Subcutaneous at bedtime insulin lispro 0-30 Units Subcutaneous TID AC insulin regular 50 Units Subcutaneous TID AC levothyroxine 112 mcg Oral Daily lisinopriL 20 mg Oral BID magnesium oxide 400 mg Oral Daily melatonin 10 mg Oral Nightly metFORMIN 1,000 mg Oral BID multivitamin 1 tablet Oral Daily sodium chloride (PF) 10 mL Intracatheter Q8H [facility] tamsulosin 0.4 mg Oral After evening meal Results/Medications Reviewed 11/24/19 9:22 AM: Results from last 7 days Lab Units 11/24/19 0339 11/23/19 0407 11/22/19 0449 11/21/19 0643 11/20/19 1035 SODIUM mmol/L 142 138 139 139 142 POTASSIUM mmol/L 4.5 4.6 4.2 4.9 4.4 CHLORIDE mmol/L 109* 106 105 107 108 BUN mg/dL 49* 35* 25 28* 24 CREATININE mg/dL 1.64* 1.31* 1.20 1.38* 1.11 GLUCOSE mg/dL 112* 111* 180* 229* 119* CALCIUM mg/dL -- -- -- 8.4 9.6 Results from last 7 days Lab Units 11/24/19 0339 11/23/19 0407 11/22/19 0449 WBC K/mcL 6.02 8.29 11.19* HGB g/dL 10.1* 9.9* 11.2* HCT % 32.9* 32.8* 35.9* PLT K/mcL 161 132* 155 Results from last 7 days Lab Units 11/20/19 1035 INR 1.0 CULTURES: Reviewed 9:22 AM IMAGING: Reviewed 9:22 AM * Helena Glass LPN - 11/24/2019 9:00 AM EST 11/24/2019 Patient Name: Dyllan Huertas Admit Date: MR #: [id number] : 1960 Physicians: Rohit Aguilar MD (Family); No ref. provider found (Referring) Assessment and Plan: Impression Right foot ulcer Severe Charcot deformity status post surgical intervention Enterobacter cloaca infection and gram-negative infection see cultures below Mika which is a gram-negative Acute osteomyelitis bone culture on 11/20/2019+ for the same pathogen that was present in January 2019is Enterobacter cloaca pansensitive RAJINDER none on chart Plan PICC line placement Rocephin 2 g IV every 24 hours last dose will be December 18 which is 4 weeks total CBC CMP sed rate CRP as baseline and every week on Mondays Send results to Dr. Andrey Awad Local care per Dr. Mora Follow-up every week on with myself and Dr. Mora at 8 AM May need to consider longer antibiotics including 2 additional weeks of IV or prolonged p.o. antibiotics for 2 additional months to complete 3 months of treatment I have discussed the patient as well as Dr. Mora Orders have been written given to perinatal social worker Will get a baseline chest x-ray and 2D echo in case we need to consider HBO treatment in the future Chief Complaint/Reason for Visit: I am seeing this patient at the request of Dr. Estela MD. I have reviewed the current hospital record, available laboratory, cardiology and imaging studies as well as available out patient records. History of Present Illness: Admission H&P by Nancy Cueto CNP on 11/20/2019: Dyllan Huertas is a 59 y.o. y/o male presenting from OR with complaint of right foot wound. Patient was taken to surgery today for a right foot reconstruction with application of circular static external fixation. Patient has a chronic nonhealing ulceration on the plantar aspect of his right foot secondary to Charcot neuropathy osseous prominence. Patient has noted the wound for several months. The ulceration site failed to heal after several serial wound care debridement and management performance. No other pedal complaints. Patient does however have blisters to the left lower extremity which are weeping, mild redness to the left lower extremity. Patient deniesany fever, chills, nausea, vomiting, constipation, diarrhea, chest pain, palpitations, shortness ofbreath, urinary urgency or frequency. 11/23/2019 Elderly white male with diabetes on disability since 2015 related to a Charcot foot and diabetes developed an ulcer in the beginning of 2019 was being followed by Dr. Robles at the office we have cultures from last year in January with Enterobacter and since then culture with gram-negative bacteria also was seen by Dr. Mora was found to have severe Charcot a corrective surgery was done with placement of an external fixator and infectious disease consult regarding further with antibiotic management his MRI in mid 2018 did not show osteo-no current MRI available With positive cultures then and now same bacteria we will need to treat for persistent infection with at least 4 weeks of IV antibiotic Allergies no known allergies to antibiotic Personal history single does not smoke to the regular alcohol does not use any street drugs Family to nobody with boils his sister lives next to him can assist with care if needed Pets none Is known to have insulin-dependent diabetes He has plate and screws in the wrist and left toe Exam: Tmax: 98.3 Urine Output: 925 Stool: not recorded PACU Vitals 11/24/19 0732 BP: 98/61 Pulse: 82 Resp: 18 Temp: 98.4 F (36.9 C) SpO2: 96% Allergies: no known allergies. Current Facility-Administered Medications: alteplase (CATH AMANDO) injection 2 mg, 2 mg, Other, PRN, Alisa Singh MD aspirin EC tablet 162 mg, 162 mg, Oral, Daily, Nancy Cueto CNP, 162 mg at 11/24/19 0816 atorvastatin (LIPITOR) tablet 40 mg, 40 mg, Oral, Nightly, Nancy Cueto CNP, 40 mg at 11/23/192045 calcium carbonate (TUMS) chewable tablet 1,000 mg, 1,000 mg, Oral, Daily, Nancy Cueto CNP, 1,000 mg at 11/24/19 0816 carvediloL (COREG) tablet 12.5 mg, 12.5 mg, Oral, Q12H, Nancy Cueto CNP, 12.5 mg at cefTRIAXone (ROCEPHIN) IVPB 2 g (premix), 2,000 mg, Intravenous, Q24H, Sotero Hendrix MD, Stopped at 11/23/19 162 docusate sodium (COLACE) capsule 100 mg, 100 mg, Oral, Daily, Nancy Cueto CNP, 100 mg at 11/24/19 0816 fenofibrate tablet 160 mg, 160 mg, Oral, Daily with breakfast, Nancy Cueto CNP, 160 mg at 11/24/19 0816 finasteride (PROSCAR) tablet 2.5 mg, 2.5 mg, Oral, Once per day on Wed, Nancy Cueto CNP, 2.5 mg at 11/22/192123 gabapentin (NEURONTIN) capsule 300 mg, 300 mg, Oral, Nightly, Nancy Cueto CNP, 300 mg at 11/23/192045 heparin (porcine) injection 5,000 Units, 5,000 Units, Subcutaneous, Q8H LESLEY, Boogie Phan MD, 5,000 Units at 11/24/19 0547 insulin glargine (LANTUS) injection 50 Units, 50 Units, Subcutaneous, Nightly, Nancy Cueto CNP, 50 Units at 11/23/19 2206 insulin lispro (HumaLOG) injection 0-15 Units, 0-15 Units, Subcutaneous, at bedtime, Nancy Cueto CNP insulin lispro (HumaLOG) injection 0-30 Units, 0-30 Units, Subcutaneous, TID AC, Nancy Cueto CNP, 1 Units at 11/23/19 0828 insulin regular (HumuLIN R, NovoLIN R) injection 50 Units, 50 Units, Subcutaneous, TID AC, Nancy Cueto CNP, Stopped at 11/24/19 0820 levothyroxine (SYNTHROID, LEVOTHROID) tablet 112 mcg, 112 mcg, Oral, Daily, Nancy Cueto CNP,112 mcg at 11/24/19 0547 lidocaine 10 mg/mL (1 %) injection 1 mL, 1 mL, Intradermal, Once PRN, Alisa Singh MD lisinopril (PRINIVIL,ZESTRIL) tablet 20 mg, 20 mg, Oral, BID, Nancy Cueto CNP, 20 mg at 11/23/19 220 magnesium oxide (MAG-OX) tablet 400 mg, 400 mg, Oral, Daily, Nancy Cueto CNP, 400 mg at 11/24/19 0816 melatonin Tab 10 mg, 10 mg, Oral, Nightly, Alena Mora, DPM, 10 mg at 11/23/192045 metFORMIN (GLUCOPHAGE-XR) 24 hr tablet 1,000 mg, 1,000 mg, Oral, BID, Nancy Cueto CNP, 1,000mg at 11/24/19 0816 multivitamin (THERAGRAN) per tablet 1 tablet, 1 tablet, Oral, Daily, Nancy Cueto CNP, 1 tablet at 11/24/19 0816 naloxone (NARCAN) injection 0.1 mg, 0.1 mg, Intravenous, PRN AND Notify physician, , , Until Discontinued AND naloxone (NARCAN) injection 0.4 mg, 0.4 mg, Intravenous, PRN, Lin Julio CNP oxyCODONE-acetaminophen (PERCOCET) 5-325 mg per tablet 1 tablet, 1 tablet, Oral, Q6H PRN, Boogie Phan MD, 1 tablet at 11/23/19 0909 sodium chloride (PF) (NS) flush 10 mL, 10 mL, Intracatheter, Q8H LESLEY, Alisa Singh MD, 10 mL at 11/24/19 0547 sodium chloride (PF) (NS) flush 10-20 mL, 10-20 mL, Intracatheter, PRN, Alisa Singh MD sodium chloride 0.9% (NS), 50 mL/hr, Intravenous, Continuous, Boogie Phan MD, Stopped at11/24/19 0053 tamsulosin (FLOMAX) 24 hr capsule 0.4 mg, 0.4 mg, Oral, After evening meal, Nancy Cueto CNP,0.4 mg at 11/23/192046 PMH/PSH/SH/ reviewed, no change except: Review of Systems: All systems were reviewed and negative except: Medications Reviewed. Chart Reviewed. Exam Findings: HEENT: Neck: ENT: Chest: CVS: Abdomen: Extremities: Skin: Musculoskeletal: Wound: Neuro: Schulte Catheter: IV Access: Other: Current Antibiotics: Rocephin 2 gm IV every 24 Hours Previous Antibiotics: Ancef 2,000 mg IV every 8 Hours Pre/Post Procedure I have personally reviewed the labs and results Test results Laboratory and Additional Data Reviewed: Labs: Chem 7 11/24/2019 03:39 Glucose: 112 BUN: 49 Creatinine: 1.64 Sodium: 142 Potassium: 4.5 CBC 11/24/2019 03:39 WBC: 6.02 Hgb: 10.1 Hct: 32.9 Platelets: 161 Lymphocytes Abs: 0.66 Magnesium 11/24/2019 03:39 2.1 Results from last 7 days Lab Units 11/23/19 0407 11/22/19 0449 11/21/19 0643 11/20/19 1035 SODIUM mmol/L 138 139 139 142 POTASSIUM mmol/L 4.6 4.2 4.9 4.4 CHLORIDE mmol/L 106 105 107 108 BUN mg/dL 35* 25 28* 24 CREATININE mg/dL 1.31* 1.20 1.38* 1.11 GLUCOSE mg/dL 111* 180* 229* 119* CALCIUM mg/dL -- -- 8.4 9.6 Results from last 7 days Lab Units 11/23/19 0407 11/22/19 0449 11/21/19 0643 WBC K/mcL 8.29 11.19* 8.73 HGB g/dL 9.9* 11.2* 11.7* HCT % 32.8* 35.9* 36.9* PLT K/mcL 132* 155 203 Current Cultures: 11/21/2019 Left Leg Wound Aerobic Culture: Normal Chalino After 24 Hours. Final. 11/20/2019 Right Foot Tissue Aerobic Culture: Moderate Growth Enterobacter cloacae complex, S=Youssef Sensitive. Final. 11/20/2019 Right Foot Tissue Anaerobic Culture: No Anaerobic Growth at 2 Days. Final. 11/20/2019 Right Foot Bone Aerobic Culture: Light Growth Enterobacter Cloacae Complex, S=Youssef Sensitive. Final. 11/20/2019 Right Foot Bone Anaerobic Culture: No Anaerobic Growth at 2 Days. Final. Recent Cultures: 05/30/2019 Right Foot Tissue Aerobic Culture: Normal Chalino After 48 Hours. Final. 05/30/2019 Right Foot Tissue Anaerobic Culture: No Anaerobic Growth at 2 Days. Final. 03/23/2019 Right Foot Wound Aerobic Culture: Heavy Growth Raoultella Pl[place], R=Ampicillin, S=Remainder of panel. 03/09/2019 Right Foot Wound Aerobic Culture: Normal Chalino After 48 Hours. Final. 02/09/2019 Right Foot Wound Aerobic Culture: Normal Chalino After 48 Hours. Final. 01/19/2019 Right Toe Two Wound Aerobic Culture: Heavy Growth Enterobacter Cloacae Complex, S=Youssef Sensitive. Final. Radiology: Chest X-Ray 11/23/2019 1. Right arm PICC line in place with tip in superior vena cava. 2. No acute pulmonary disease. 3. Cardiomegaly with evidence of prior open heart surgery. 4. No acute osseous abnormality. Right Foot X-Ray 11/20/2019 IMPRESSION: Intraoperative fluoroscopy for localization during right foot and ankle reconstruction and fixation. Please see operative report for details. Left Ankle X-Ray Ordered 11/20/2019 Right Foot X-Ray 11/20/2019 FINDINGS: Two views of the right foot were obtained. There are advanced changes of Charcot arthropathy throughout the right midfoot which appears similar compared to prior examination. There are postsurgical changes of resection of the right 2nd toe proximal phalangeal head. IMPRESSION: 1. Advanced changes of Charcot arthropathy throughout the right midfoot which appear unchanged compared to prior examination. Chest AP/PA X-Ray 11/16/2019 1. No acute pulmonary disease. 2. Cardiomegaly, with evidence of prior open heart surgery. 3. Multilevel degenerative changes of the thoracic spine. MR Right Foot 05/19/2019 1. There is a superficial soft tissue ulcer again seen along the plantar aspect of the midfoot, butthere is no evidence of abscess or osteomyelitis in this region. 2. Stable appearance of the sequela of severe neuropathic arthropathy of the midfoot with collapse of the midfoot again seen resulting in a rocker bottom deformity. 3. A moderate amount of diffuse subcutaneous edema along the dorsum of the foot may be due to reactive edema or a cellulitis, but this is nonspecific. Right Foot X-Ray 04/28/2019 1. Soft tissue irregularity involving the plantar aspect of the foot likely representing the reported ulcer. No bony destruction to suggest osteomyelitis. 2. No evidence of radiopaque foreign body. 3. Stable deformity and degenerative changes involving the midfoot. Findings are consistent with Charcot joint. NM White Cell Scan Spot Limited 03/08/2017 FINDINGS: A focal area of intense abnormal white blood cell migration is noted central plantar aspect of the right foot corresponding to the area of the wound demonstrated radiographically. No other focus of white blood cell migration abnormality is evident within the right or left foot. IMPRESSION: Focal area of abnormal white blood cell migration at the plantar aspect central right foot may be at the wound itself or may be involving the bone with associated fracture as demonstrated radiographically. Anatomic detail is insufficient for differentiation between the two. Renal U/S 03/07/2017 IMPRESSION: Severe thickening of the urinary bladder wall. This could be due to outlet obstruction with hypertrophy of the wall. If there is no such history, this should be evaluated with cystoscopy. CVPS: Arterial Doppler: not on file Venous Doppler: not on file 2D Echo 11/23/2019 Moderate LV enlargement with LVH. Global systolic dysfunction with segmental features. LVEF 30% Elevated LV filling pressures RV is dilated with severe RV dysfunction Mild mitral annular calcification, mild thickening of the aortic valve without hemodynamically significant valvular disease There is a atrial level right to left shunt identified with saline contrast with free breathing andValsalva most likely via PFO LVEF unchanged from to previous echo from 2017 Surgeries: Please see above for surgical history Procedure: RIGHT FOOT RECONSTRUCTION WITH APPLICATION OF CIRCULAR STATIC EXTERNAL FIXATION Date: 11/20/2019 Surgeon: Alena Mora DPM Procedure in Detail: I saw the patient in the preoperative holding area and the operative site was marked. The patient was then brought to the operating room placed on the table in a supine position. A formal timeout wasperformed indicating the patient's name, date of , site/side and procedure to be performed. All parties were in agreement. A pneumatic ankle tourniquet was placed about the right/left ankle. Following IV sedation, local anesthesia was obtained about the right/left ankle utilizing a 1 1 mixtureof 1% lidocaine plain and 0.25% Marcaine plain. The foot was then scrubbed, prepped and draped in the usual aseptic manner. An Esmarch was then used to accentuate the patient's right/left foot and the tourniquet was inflated Upon completion of the procedure, the incision site was dressed with Xeroform, 4 x 4's, light Kerlix and dry sterile dressing.The tourniquet was then deflated and a prompt hyperemic response was noted to all digits of the right/left foot. An Zechariah bandage was applied to the right/left foot. I was present for the entirety of the surgery. The patient tolerated procedure and anesthesia well and was transferred to the PACU vital signs stable and vascular status intact to the right/left foot. Following a period of postoperative monitoring, the patient will be discharged home with instructions and prescriptions. Procedure: ARTHROPLASTY 2ND TOE RIGHT FOOT Date: 01/25/2019 Surgeon: Rosa M Robles DPM Pathology: not on file * Amrita Delvalle MSW LSW - 11/23/2019 2:26 PM EST DISCHARGE PLAN PROGRESS NOTE Date: 11/23/2019 Time: 2:26 PM Received call back from Niyah with [facility]. Per Niyah, transportation should not be an issue for wound care appointments. Niyah reports she will check and call back if it is an issue. Patient Name: Dlylan Huertas Date of : 1960 Sex: Male Discharge Readiness Expected Discharge Date: 11/17/19 Barriers to Discharge: Pre-certification [facility] Disposition D/C Disposition: [facility] Estimated Length of Stay (ELOS): (42) PAS/RR: PAS Options Reviewed: List provided Reason for Choice: Patient/Family preference N * Alena Mora DPM - 11/23/2019 2:04 PM EST Progress Inpatient Follow-up 11/23/2019 Alena Mora DPM [facility] Patient: Dyllan Huertas Date of : 1960 (59 y.o.) PCP: Rohit Aguilar MD ASSESSMENT/PLAN: Dyllan Huertas 59 y.o. male with history of Charcot deformity of the right foot with osteomyelitis. Patient is POD#2 Status post midfoot wedge resection of the right foot and application of external fixator. (date of surgery 11/20/2019) - Doing well Plan: Patient was seen and evaluated. Discussed all clinical findings Patient is doing well at this time and pain is well controlled. Patient was seen by physical therapy and Occupational Therapy with recommendation for a rehab facility. I agree with the recommendation. Agree with Dr. Awad regarding her antibiotic course of treatment Strict NWB to RLE Continue DVT prophylaxis Ordered pin care by nursing. See Physician Instructions and Wound Care instructions Follow up at the Wound Care center in [address] Awad Subjective: He states that his pain is well controlled. No new pedal complaints at this time.Denies fevers, chills, nausea, vomiting, chest pain, shortness of breath, or any other constitutional symptoms. Physical Exam: DP and PT pulses are weakly palpable 1/4 secondary to +1 pitting edema as expected postoperatively.Cap refill time is brisk to distal digits. Skin temperature is warm to warm from proximal tibial tuberosity to distal digits. A circular static external fixation is intact to the right lower extremity. Pins and wire are notedwithout any erythema, or edema noted. No drainage. Gross sensation is intact. Protective sensation is absent. Patient is able to wiggle digits. Compartments are soft and compressible. No calf pain. * Roopa Sahu H - 11/23/2019 12:42 PM EST Physical Therapy PHYSICAL THERAPY TREATMENT NOTE Skilled Therapy Needs After Discharge Anticipate Resolution of Current Assessment Limitations Including: Pain Are Skilled Therapy Services Needed After Discharge: Yes Intensity of Skilled Therapy: 5 to 7 days per week Anticipated Duration of Skilled Therapy: Duration 10 - 30 days DME Recommendation: Wheeled walker DME Rationale: Patient's condition creates an increased risk of safety hazard without recommended equipment Rehab Potential: Good Outcomes Measures Prior Function - Basic Mobility Raw Score: 23 Points Prior Function - Basic Mobility % Impaired: 16.55% functionally impaired AM-PAC - Basic Mobility Raw Score: 10 Points AM-PAC - Basic Mobility % Impaired: 71.92% functionally impaired Activity Tolerance Released to [facility] with ARJO. Therapy Precautions Orthotic Devices: Yes Lower Extremity: External Fixator Weight Bearing Status: X RLE: Non Wt bearing General Rehab Precautions: Fall risk Balance Bed Mobility Rolling: Min Supine to Sit: Min Skilled Intervention: Pt performed rolling wtih fabio in bed. Pt cued for proper placement of B UE and LE. Pad technique used to assist hips. Pt performed supine to sit wtih fabio. Pt cued for proper placement of B UE and LE. Transfers Sit to Stand: Max, Two person assist Stand Pivot Transfers: Max, Two person assist Skilled Intervention: Pt performed sit to stand wtih maxa x 2 from eob. pad technique used to aid hip ext. R foot assisted off of ground with sheet by PSA. First 2 attempts unable to come to standing. Third attempt came to standing. Pt perfomred stand pivot transfer wtih maxa x2. Pt R LE assisted off of ground with sheet with PSA. Pad technique used to assist hip ext. Pt took small pivot steps tochair with L LE. Pt performed sit to stand with maxa x 2 at bed rail. Pt required moda x 2 in standing. Pad used to assist hip ext. Pt maintained standing for 40 seconds. Pt required cueing to maintain NWB status of R LE. Exercise Ankle Pumps: 20 Skilled Intervention: Pt performed the following exercises in supine B LE: 20 ankle pumps (L LE only), heel slides, quad sets, saqs, hip abd, hip add. pt cued for proper exercise technique. Home Living Type of Home: House Home Layout: One level, Ramped entrance Bathroom Shower/Tub: Tub/shower unit Bathroom Toilet: Standard Bathroom Equipment: Tub transfer bench, Hand-held shower Bathroom Accessibility: Not accessible Home Equipment: Wheeled Walker, Mirror Installer, Wheelchair-manual(Kneeling scooter, surgical shoe and boot.) Additional Comments: W/C does not have elevating leg rests per pt Prior Level of Function Level of [place]: Independent with ADLs and functional transfers, Independent with homemaking with ambulation Lives With: Alone Receives Help From: Family ADL Assistance: Independent Homemaking Assistance: Independent Comments: Primarily in w/c; was to be NWBing on the RLE, but unable to maintain, when going into the bathroom; reports that the doctor was aware and okay with it. Drives on occasion. Was using push cart or motorized cart at the store, going ~1x/month. Sister lives next door. For complete objective data, detailed plan of care and patient education refer to: PT EVALUATION flow sheet, PT TREATMENT flow sheet, patient Plan of Care, Plan of Care progress note, and Patient Education. This note stands as the current Discharge Summary upon patient discharge from the hospital or completion of Physical Therapy Plan of Care. * Amrita Delvalle, CREATIVE SERVICES SPECIALIST FLIGHT INSPECTOR - 11/23/2019 12:26 PM EST DISCHARGE PLAN PROGRESS NOTE Date: 11/23/2019 Time: 12:26 PM Received message from Niyah with [facility]. Per Niyah, they are able to accommodate the IV antibiotics. Niyah reports the insurance is requesting an updated physician progress note. Once Dr. Awad's note is in the system, will fax to [facility]. Patient Name: Dyllan Huertas Date of : 1960 Sex: Male Discharge Readiness Expected Discharge Date: 11/17/19 Barriers to Discharge: Pre-certification [facility] Disposition D/C Disposition: [facility] Facility Agency/Destination: [facility] Estimated Length of Stay (ELOS): (42) PAS/RR: PAS Options Reviewed: List provided Reason for Choice: Patient/Family preference Anticipated Discharge Plan Anticipated HME: None Anticipated Facility Type: [facility] * Amrita Delvalle CREATIVE SERVICES SPECIALIST FLIGHT INSPECTOR - 11/23/2019 12:10 PM EST DISCHARGE PLAN PROGRESS NOTE Date: 11/23/2019 Time: 12:10 PM Received call from Dr. Angelina Awad regarding patient. Per Dr. Awad, patient will need IV rocephin for a minimum of 4 weeks [address] a day[address] Dr. Awad reports the patient will have a PICC line. [facility] and a message was left for Niyah with an update. Requested a call back to ensure they are able to accommodate this. Patient Name: Dyllan Huertas Date of : 1960 Sex: Male Discharge Readiness Barriers to Discharge: Pre-certification [facility] Disposition D/C Disposition: [facility] Facility Agency/Destination: [facility] Estimated Length of Stay (ELOS): (42) PAS/RR: PAS Options Reviewed: List provided Reason for Choice: Patient/Family preference * Alisa Singh MD - 11/23/2019 11:31 AM EST [facility] Inpatient Follow-up 11/23/2019 Alisa Singh MD [facility] Patient: Dyllan Huertas Date of : 1960 (59 y.o.) PCP: Rohit Aguilar MD ASSESSMENT/PLAN: Dyllan Huertas 59 y.o. 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 Pain control, will add po percocet to IV dilaudid DVT ppx will start sq heparin Cont diabetic management, lantus 50 qhs and ISS Scr higher today will start gentle hydration 11/22 Feeling good no new complain [facility]ing [facility] to a [facility] 11/23 Infectious Disease consult for long-term antibiotics patient will need IV antibiotics for 4 to 6 weeks. Insert PICC line Plan to discharge to ECF when okay with ID and podiatry SUBJECTIVE: Pain 11/13 rt ankle No sob All other systems reviewed and negative other than noted above. OBJECTIVE: Physical Examination: BP 106/68 (BP Location: Right arm, Patient Position: Lying) Pulse 89 Temp 98 F (36.7 C) (Oral) Resp 14 Ht 5' 11 Wt 129.4 kg (285 lb 4.4 oz) SpO2 93% BMI 39.79 kg/m General Appearance: Alert, well appearing, and in no acute distress. HEENT: Head - Normocephalic, atraumatic. Eyes - ALEKS bilaterally and EOMI. Ears - normal external appearance, hearing intact. Nose - normal, no erythema. Throat - mucous membranes moist, pharynx without lesions. Neck: Supple, trachea midline. Cardiovascular: S1, S2 normal. No murmurs, rubs, clicks or gallops appreciated. No pedal edema. Respiratory: Lungs clear to auscultation, no wheezes, rales or rhonchi heard. Abdomen: Soft, non-tender, normal bowel sounds, non-distended, no masses or organomegaly appreciated. Neurological: Grossly normal motor and sensory exam. No focal deficits. Musculoskeletal: Status post surgery right foot with external fixator Skin: Normal coloration and turgor. No rashes. Psych: Alert, oriented x 3. Normal mood and affect. CURRENT MEDICATIONS: aspirin 162 mg Oral Daily atorvastatin 40 mg Oral Nightly calcium carbonate 1,000 mg Oral Daily carvediloL 12.5 mg Oral Q12H cefTRIAXone (ROCEPHIN) IVPB 2,000 mg Intravenous Q24H docusate sodium 100 mg Oral Daily fenofibrate 160 mg Oral Daily with breakfast finasteride 2.5 mg Oral Once per day on Wed gabapentin 300 mg Oral Nightly heparin (porcine) 5,000 Units Subcutaneous Q8H LESLEY insulin glargine 50 Units Subcutaneous Nightly lispro insulin 0-15 Units Subcutaneous at bedtime insulin lispro 0-30 Units Subcutaneous TID AC insulin regular 50 Units Subcutaneous TID AC levothyroxine 112 mcg Oral Daily lisinopriL 20 mg Oral BID magnesium oxide 400 mg Oral Daily melatonin 10 mg Oral Nightly metFORMIN 1,000 mg Oral BID multivitamin 1 tablet Oral Daily sodium chloride (PF) 10 mL Intracatheter Q8H [facility] tamsulosin 0.4 mg Oral After evening meal Results/Medications Reviewed 11/23/19 11:31 AM: Results from last 7 days Lab Units 11/23/19 0407 11/22/1944811/21/19 0643 11/20/19 1035 SODIUM mmol/L 138 139 139 142 POTASSIUM mmol/L 4.6 4.2 4.9 4.4 CHLORIDE mmol/L 106 105 107 108 BUN mg/dL 35* 25 28* 24 CREATININE mg/dL 1.31* 1.20 1.38* 1.11 GLUCOSE mg/dL 111* 180* 229* 119* CALCIUM mg/dL -- -- 8.4 9.6 Results from last 7 days Lab Units 11/23/19 0407 11/22/19 0449 11/21/19 0643 WBC K/mcL 8.29 11.19* 8.73 HGB g/dL 9.9* 11.2* 11.7* HCT % 32.8* 35.9* 36.9* PLT K/mcL 132* 155 203 Results from last 7 days Lab Units 11/20/19 1035 INR 1.0 CULTURES: Reviewed 11:31 AM IMAGING: Reviewed 11:31 AM * Helena Glass, NUCLEAR RADIATION ENGINEER - 11/23/2019 9:06 AM EST CONSULT NOTE 11/23/2019 Patient Name: Dyllan Huertas Admit Date: MR #: [id number] : 1960 Physicians: Rohit Aguilar MD (Family); No ref. provider found (Referring) Assessment and Plan: Chief Complaint/Reason for Visit: I am seeing this patient at the request of Dr. Estela MD. I have reviewed the current hospital record, available laboratory, cardiology and imaging studies as well as available out patient records. History of Present Illness: Admission H&P by Nancy Cueto CNP on 11/20/2019: Dyllan Huertas is a 59 y.o. y/o male presenting from OR with complaint of right foot wound. Patient was taken to surgery today for a right foot reconstruction with application of circular static external fixation. Patient has a chronic nonhealing ulceration on the plantar aspect of his right foot secondary to Charcot neuropathy osseous prominence. Patient has noted the wound for several months. The ulceration site failed to heal after several serial wound care debridement and management performance. No other pedal complaints. Patient does however have blisters to the left lower extremity which are weeping, mild redness to the left lower extremity. Patient deniesany fever, chills, nausea, vomiting, constipation, diarrhea, chest pain, palpitations, shortness ofbreath, urinary urgency or frequency. History: Past Medical History: Diagnosis Date Coronary artery disease Diabetes mellitus, type 2 (HCC) Hyperlipidemia Hypertension Hypothyroidism Peripheral neuropathy Sleep apnea, obstructive does not use CPAP Past Surgical History: Procedure Laterality Date APPENDECTOMY ARTHROPLASTY TOE Right 01/25/2019 Procedure: ARTHROPLASTY 2ND TOE RIGHT FOOT; Surgeon: Rosa M Robles DPM; Location: [facility] [place]; Service: Podiatry CARDIAC SURGERY 2016 CABG tripe bypass CYST REMOVED FROM CHEST N/A METAL IN LEFT LEFT WRIST AND LEFT 5TH TOE Left ORTHOPEDIC SURGERY RECONSTRUCTION FOOT CHARCOT Right 11/20/2019 Procedure: RIGHT FOOT RECONSTRUCTION WITH APPLICATION OF CIRCULAR STATIC EXTERNAL FIXATION; Surgeon: Alena Mora DPM; Location: Main OR; Service: Podiatry RT FOOT SURGERY Right SHARMILA JEOGN N/A Family History Problem Relation Age of Onset Heart disease Mother Heart disease Father Heart disease Brother Social History Socioeconomic History Marital status: Single Spouse name: Not on file Number of children: Not on file Years of education: Not on file Highest education level: Not on file Occupational History Not on file Social Needs Financial resource strain: Not on file Food insecurity Worry: Not on file Inability: Not on file Transportation needs Medical: Not on file Non-medical: Not on file Tobacco Use Smoking status: Never Smoker Smokeless tobacco: Never Used Substance and Sexual Activity Alcohol use: Yes Comment: occassionally Drug use: Never Sexual activity: Not Currently Lifestyle Physical activity Days per week: Not on file Minutes per session: Not on file Stress: Not on file Relationships Social connections Talks on phone: Not on file Gets together: Not on file Attends scientologist service: Not on file Active member of club or organization: Not on file Attends meetings of clubs or organizations: Not on file Relationship status: Not on file Other Topics Concern Not on file Social History Narrative Not on file Allergy Information: I have reviewed the patient's allergies. Patient has no known allergies. Home Medications: Prior to Admission medications Medication Sig Start Date End Date Taking? Authorizing Provider calcium carbonate 400 mg Chew Chew and Swallow 1,000 mg daily . Yes Historical Provider, carvedilol (COREG) 6.25 MG tablet 12.5 mg every 12 (twelve) hours . 02/04/17 Yes Historical Provider, docusate sodium (COLACE) 100 MG capsule Take 100 mg by mouth daily . Yes Historical Provider, FENOFIBRATE MICRONIZED ORAL Take 160 mg by mouth daily . 01/26/15 Yes Historical Provider, gabapentin (NEURONTIN) 300 MG capsule gabapentin GABAPENTIN 300 MG CAPS One tablet by mouth daily GABAPENTIN [id number] Sebastián Dailey MD 06-15-2017 [facility] ([id number]) 06/15/17 Yes Historical Provider, insulin glargine (LANTUS) 100 unit/mL (3 mL) InPn Inject 50 Units under the skin nightly . Yes Historical Provider, levothyroxine (SYNTHROID, LEVOTHROID) 112 MCG tablet once daily . 01/12/19 Yes Historical Provider, lisinopril (PRINIVIL,ZESTRIL) 20 MG tablet 20 mg 2 (two) times a day . 12/30/18 Yes Historical Provider, magnesium oxide (MAG-OX) 400 mg (241.3 mg magnesium) tablet Take 400 mg by mouth daily . Yes Historical Provider, melatonin 5 mg Tab Take 10 mg by mouth daily . Yes Historical Provider, metFORMIN (GLUCOPHAGE-XR) 500 MG 24 hr tablet 1,000 mg 2 (two) times a day . 10/21/18 Yes HistoricalProviderMD multivitamin (THERAGRAN) per tablet Take 1 tablet by mouth daily . Yes Historical Provider, NovoLIN R Regular U-100 Insuln 100 unit/mL injection INJECT 50 UNITS SUBCUTANEOUSLY 3 TIMES DAILY WITH MEALS WITH ADDITIONAL PER SLIDING SCALE 10/20/19 Yes Historical Provider, omega-3 fatty acids/fish oil (fish oil-omega-3 fatty acids) 300-1,000 mg capsule Take 2 g by mouth daily . Yes Historical Provider, rosuvastatin (CRESTOR) 20 MG tablet 20 mg daily . 09/17/16 Yes Historical Provider, tamsulosin (FLOMAX) 0.4 mg capsule tamsulosin TAMSULOSIN HCL 0.4 MG CAPS One tablet by mouth daily TAMSULOSIN HCL [id number] Sebastián Dailey MD 06-15-2017 [facility] ([id number]) 06/15/17 Yes Historical Provider, aspirin 81 MG EC tablet Take 162 mg by mouth daily . Historical Provider, finasteride (PROSCAR) 5 mg tablet Take 2.5 mg by mouth every night at bedtime Wednesday,WED,WED . 04/16/15 Historical Provider, Current Scheduled Meds: aspirin 162 mg Oral Daily atorvastatin 40 mg Oral Nightly calcium carbonate 1,000 mg Oral Daily carvediloL 12.5 mg Oral Q12H docusate sodium 100 mg Oral Daily fenofibrate 160 mg Oral Daily with breakfast finasteride 2.5 mg Oral Once per day on Wed gabapentin 300 mg Oral Nightly heparin (porcine) 5,000 Units Subcutaneous Q8H LESLEY insulin glargine 50 Units Subcutaneous Nightly lispro insulin 0-15 Units Subcutaneous at bedtime insulin lispro 0-30 Units Subcutaneous TID AC insulin regular 50 Units Subcutaneous TID AC levothyroxine 112 mcg Oral Daily lisinopriL 20 mg Oral BID magnesium oxide 400 mg Oral Daily melatonin 10 mg Oral Nightly metFORMIN 1,000 mg Oral BID multivitamin 1 tablet Oral Daily tamsulosin 0.4 mg Oral After evening meal Review of Systems: The following system(s) were reviewed and pertinent findings noted: Constitutional:No fever, no weight change, no night sweats Eyes:No visual changes ENT:No sore throat, no ear pain CV:No chest pain. No dypnea with exertion, no palpitations, no orthopnea. No ankle swelling and no symptoms of intermittent claudication. Resp:No cough, sputum, wheeze or hemoptysis. No pleurisy. GI:No abdominal pain.No nausea, vomiting or diarrhea. No rectal bleeding. :No frequency, urgency, dysuria or hematuria. Neuro:No headache, dizziness. No focal weakness or paresthesias. Integumentary:No skin rash MuscSkel:No joint pain, no swelling, no synovitis or joint effusion. Wound: Heme/lymphatic:No apparent lymphadenopathy. Psych:N/A Physical Examination: Vital Signs: Tmax: 99.1 Urine Output: 500 Stool: not recorded BP 98/64 (Patient Position: Lying) Pulse 91 Temp 98.1 F (36.7 C) (Oral) Resp 16 Ht 5' 11 Wt 129.4 kg (285 lb 4.4 oz) SpO2 95% BMI 39.79 kg/m Exam Findings: Constitutional: HENT: Head: Eyes: Neck: Cardiovascular: Murmur Pulmonary/Chest: Abdominal: Musculoskeletal: Neurological: Skin: Wound: Wound (Outpatient Only) 03/31/19 Foot Anterior;Right;Plantar (Active) Schulte: IV: Other: Current Antibiotics: None at this time Previous Antibiotics: Ancef 2,000 mg IV every 8 Hours Pre/Post Procedure I have personally reviewed the labs and results Test results Laboratory and Additional Data Reviewed: Results from last 7 days Lab Units 11/23/19 0407 11/22/19 0449 11/21/19 0643 11/20/19 1035 SODIUM mmol/L 138 139 139 142 POTASSIUM mmol/L 4.6 4.2 4.9 4.4 CHLORIDE mmol/L 106 105 107 108 BUN mg/dL 35* 25 28* 24 CREATININE mg/dL 1.31* 1.20 1.38* 1.11 GLUCOSE mg/dL 111* 180* 229* 119* CALCIUM mg/dL -- -- 8.4 9.6 Results from last 7 days Lab Units 11/23/19 0407 11/22/19 0449 11/21/19 0643 WBC K/mcL 8.29 11.19* 8.73 HGB g/dL 9.9* 11.2* 11.7* HCT % 32.8* 35.9* 36.9* PLT K/mcL 132* 155 203 Current Cultures: 11/21/2019 Left Leg Wound Aerobic Culture: Normal Chalino After 24 Hours. Preliminary. 11/20/2019 Right Foot Tissue Aerobic Culture: Moderate Growth Enterobacter cloacae complex, S=Youssef Sensitive. Final. 11/20/2019 Right Foot Tissue Anaerobic Culture: No Anaerobic Growth at 2 Days. Final. 11/20/2019 Right Foot Bone Aerobic Culture: Light Growth Enterobacter Cloacae Complex, S=Youssef Sensitive. Final. 11/20/2019 Right Foot Bone Anaerobic Culture: No Anaerobic Growth at 2 Days. Final. Recent Cultures: 05/30/2019 Right Foot Tissue Aerobic Culture: Normal Chalino After 48 Hours. Final. 05/30/2019 Right Foot Tissue Anaerobic Culture: No Anaerobic Growth at 2 Days. Final. 03/23/2019 Right Foot Wound Aerobic Culture: Heavy Growth Raoultella Pl[place]ola, R=Ampicillin, S=Remainder of panel. 03/09/2019 Right Foot Wound Aerobic Culture: Normal Chalino After 48 Hours. Final. 02/09/2019 Right Foot Wound Aerobic Culture: Normal Chalino After 48 Hours. Final. 01/19/2019 Right Toe Two Wound Aerobic Culture: Heavy Growth Enterobacter Cloacae Complex, S=Youssef Sensitive. Final. Radiology: Right Foot X-Ray 11/20/2019 IMPRESSION: Intraoperative fluoroscopy for localization during right foot and ankle reconstruction and fixation. Please see operative report for details. Left Ankle X-Ray Ordered 11/20/2019 Right Foot X-Ray 11/20/2019 FINDINGS: Two views of the right foot were obtained. There are advanced changes of Charcot arthropathy throughout the right midfoot which appears similar compared to prior examination. There are postsurgical changes of resection of the right 2nd toe proximal phalangeal head. IMPRESSION: 1. Advanced changes of Charcot arthropathy throughout the right midfoot which appear unchanged compared to prior examination. Chest AP/PA X-Ray 11/16/2019 1. No acute pulmonary disease. 2. Cardiomegaly, with evidence of prior open heart surgery. 3. Multilevel degenerative changes of the thoracic spine. MR Right Foot 05/19/2019 1. There is a superficial soft tissue ulcer again seen along the plantar aspect of the midfoot, butthere is no evidence of abscess or osteomyelitis in this region. 2. Stable appearance of the sequela of severe neuropathic arthropathy of the midfoot with collapse of the midfoot again seen resulting in a rocker bottom deformity. 3. A moderate amount of diffuse subcutaneous edema along the dorsum of the foot may be due to reactive edema or a cellulitis, but this is nonspecific. Right Foot X-Ray 04/28/2019 1. Soft tissue irregularity involving the plantar aspect of the foot likely representing the reported ulcer. No bony destruction to suggest osteomyelitis. 2. No evidence of radiopaque foreign body. 3. Stable deformity and degenerative changes involving the midfoot. Findings are consistent with Charcot joint. NM White Cell Scan Spot Limited 03/08/2017 FINDINGS: A focal area of intense abnormal white blood cell migration is noted central plantar aspect of the right foot corresponding to the area of the wound demonstrated radiographically. No other focus of white blood cell migration abnormality is evident within the right or left foot. IMPRESSION: Focal area of abnormal white blood cell migration at the plantar aspect central right foot may be at the wound itself or may be involving the bone with associated fracture as demonstrated radiographically. Anatomic detail is insufficient for differentiation between the two. Renal U/S 03/07/2017 IMPRESSION: Severe thickening of the urinary bladder wall. This could be due to outlet obstruction with hypertrophy of the wall. If there is no such history, this should be evaluated with cystoscopy. CVPS: Arterial Doppler: not on file Venous Doppler: not on file 2D Echo: not on file Surgeries: Please see above for surgical history Procedure: RIGHT FOOT RECONSTRUCTION WITH APPLICATION OF CIRCULAR STATIC EXTERNAL FIXATION Date: 11/20/2019 Surgeon: Alena Mora DPM Procedure in Detail: I saw the patient in the preoperative holding area and the operative site was marked. The patient was then brought to the operating room placed on the table in a supine position. A formal timeout wasperformed indicating the patient's name, date of , site/side and procedure to be performed. All parties were in agreement. A pneumatic ankle tourniquet was placed about the right/left ankle. Following IV sedation, local anesthesia was obtained about the right/left ankle utilizing a 1 1 mixtureof 1% lidocaine plain and 0.25% Marcaine plain. The foot was then scrubbed, prepped and draped in the usual aseptic manner. An Esmarch was then used to accentuate the patient's right/left foot and the tourniquet was inflated Upon completion of the procedure, the incision site was dressed with Xeroform, 4 x 4's, light Kerlix and dry sterile dressing.The tourniquet was then deflated and a prompt hyperemic response was noted to all digits of the right/left foot. An Zechariah bandage was applied to the right/left foot. I was present for the entirety of the surgery. The patient tolerated procedure and anesthesia well and was transferred to the PACU vital signs stable and vascular status intact to the right/left foot. Following a period of postoperative monitoring, the patient will be discharged home with instructions and prescriptions. Procedure: ARTHROPLASTY 2ND TOE RIGHT FOOT Date: 01/25/2019 Surgeon: Rosa M Robles DPM Pathology: not on file * Elizabeth Khan LISW - 11/22/2019 3:10 PM EST DISCHARGE PLAN PROGRESS NOTE Date: 11/22/2019 Time: 3:10 PM Patient Name: Dyllan Huertas Date of : 1960 Sex: Male Received a voice mail from [place] at the [facility] is requesting updated physician's progress note and updated therapy notes from 11/23 and requested the information be sent to them via In Basket on 11/23. ROCK RichS Discharge Readiness Expected Discharge Date: 11/17/19 Barriers to Discharge: Pre-certification [facility] Disposition D/C Disposition: [facility] Facility Agency/Destination: [facility] Estimated Length of Stay (ELOS): (42) PAS/RR: PAS Options Reviewed: List provided Reason for Choice: Patient/Family preference Anticipated Discharge Plan Anticipated HME: None Anticipated Facility Type: [facility] * Dileep Pedraza - 11/22/2019 2:42 PM EST Attempted Sacramental Visit [facility] attempted to visit patient. Patient was unavailable. Charted on behalf of [facility]. Dileep Pedraza, PhD Inside Phone Sales [facility] Department [facility] Office: [phone] 11/22/19 0930 Clinical Encounter Type Visit Type Non Crisis Non Crisis Visit Attempt;Sacrament Visited With Patient not available Visited By [facility] Hand Visit Length (minutes) 5 Sacramental Encounters Communion Given Indicator No * Dileep Pedraza - 11/22/2019 2:41 PM EST Attempted Sacramental Visit [facility] attempted to visit patient. Patient was unavailable. Charted on behalf of [facility]. Dileep Pedraza PhD Inside [employer] [facility] Department [facility] Office: [phone] 11/21/19 0930 Clinical Encounter Type Visit Type Non Crisis Non Crisis Visit Attempt;Sacrament Visited With Patient not available [facility] By [facility] Visit Length (minutes) 5 Sacramental Encounters Communion Given Indicator No * Elizabeth Khan LISW - 11/22/2019 12:22 PM EST DISCHARGE PLAN PROGRESS NOTE Date: 11/22/2019 Time: 12:22 PM Patient Name: Dyllan Huertas Date of : 1960 Sex: Male Discussed the patient with Dr. Mora this morning who confirmed the patient will require IV antibiotics at discharge and requested an Infectious Disease consult. Discussed with Dr. Singh who placedconsult. Called Palmira at the [facility] who confirmed they can accept the patient and would havea bed for him on Friday 11/24 pending precert. Informed of plan for IV antibiotics at discharge. [place] the patient and informed [facility] is not in network with his insurance. Informed of acceptance at the [facility] pending precert. PAS completed as patient was changed to outpatient in abed status. Care management will continue to follow. HOLLY Rich-S Discharge Readiness Expected Discharge Date: 11/17/19 Barriers to Discharge: Pre-certification [facility] Disposition D/C Disposition: [facility] Facility Agency/Destination: [facility] Estimated Length of Stay (ELOS): (42) PAS/RR: PAS Options Reviewed: List provided Reason for Choice: Patient/Family preference Anticipated Discharge Plan Anticipated HME: None Anticipated Facility Type: [facility] * Nicholas ColePATI - 11/22/2019 12:06 PM EST Occupational Therapy OCCUPATIONAL THERAPY TREATMENT NOTE Skilled Therapy Needs After Discharge Anticipate Resolution of Current Assessment Limitations Including: Pain, Mechanical Barriers Are Skilled Therapy Services Needed After Discharge: Yes Intensity of Skilled Therapy: 5 to 7 days per week Anticipated Duration of Skilled Therapy: Duration 10 - 30 days DME Recommendation: Adaptive equipment kit DME Rationale: Patient's condition creates an increased risk of safety hazard without recommended equipment, Equipment required to maintain weight bearing status per physician orders Rehab Potential: Good Outcomes Measures Prior Function Daily Activity: Raw Score: 24 Prior Function Daily Activity % Impaired: 0% functionally impaired AM-PAC Daily Activity: Raw Score: 15 AM-PAC Daily Activity % Impaired: 56.46% functionally impaired Activity Tolerance Fair + Therapy Precautions Orthotic Devices: Yes Lower Extremity: External Fixator Weight Bearing Status: X RLE: Non Wt bearing General Rehab Precautions: Fall risk Cognition Overall Cognitive Status: Within Functional Limits Arousal/Alertness: Appropriate responses to stimuli Orientation Level: Oriented X4 Executive functioning: Min impairment Safety Judgment: Good awareness of safety precautions Problem Solving: Assistance required to identify errors made Attention: Attends to distracted environment Hearing Status: WFL Social Interaction: WFL Comments: Pt. very fatigued throughout session, with cueing to stay awake. Skilled Intervention: Pt. followed all commands throughout. ADL/IADL LE Dressing: Min, Verbal cueing, Increased time to complete, Use of adaptive equipment Skilled Intervention: Educated pt. on AE for LE dressing. Pt. sat at chair level to doff L sock with use of inspection supervisor with cueing for sequencing. Pt. then donned L sock with use of sock aid with a visual demonstration for initation. Bed Mobility Skilled Intervention: Pt. in chair upon arrival. Exercise Seated Exercises: L UE strengthening exercise with use of min resistance theraband x10 in all planes, and AAROM/AROM in R UE x10 in all planes to prevent stiffness due to pain from laying on the OR table pt. tolerated exericses well in L UE and stated he felt better after ranging R UE. Home Living Type of Home: House Home Layout: One level, Ramped entrance Bathroom Shower/Tub: Tub/shower unit Bathroom Toilet: Standard Bathroom Equipment: Tub transfer bench, Hand-held shower Bathroom Accessibility: Not accessible Home Equipment: Wheeled Walker, Mirror Installer, Wheelchair-manual(Kneeling scooter, surgical shoe and boot.) Additional Comments: W/C does not have elevating leg rests per pt Prior Level of Function Level of [place]: Independent with ADLs and functional transfers, Independent with homemaking with ambulation Lives With: Alone Receives Help From: Family ADL Assistance: Independent Homemaking Assistance: Independent Comments: Primarily in w/c; was to be NWBing on the RLE, but unable to maintain, when going into the bathroom; reports that the doctor was aware and okay with it. Drives on occasion. Was using push cart or motorized cart at the store, going ~1x/month. Sister lives next door. For complete objective data, detailed plan of care and patient education refer to: OT EVALUATION flow sheet, OT TREATMENT flow sheet, patient Plan of Care, Plan of Care progress note, and Patient Education. This note stands as the current Discharge Summary upon patient discharge from the hospital or completion of Occupational Therapy Plan of Care. * Alisa Singh MD - 11/22/2019 11:10 AM EST [facility] Inpatient Follow-up 11/22/2019 Alisa Singh MD [facility] Patient: Dyllan Huertas Date of : 1960 (59 y.o.) PCP: Rohit Aguilar MD ASSESSMENT/PLAN: Dyllan Huertas 59 y.o. 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 Pain control, will add po percocet to IV dilaudid DVT ppx will start sq heparin Cont diabetic management, lantus 50 qhs and ISS Scr higher today will start gentle hydration / Feeling good no new complain Waiting for placement to a jail SUBJECTIVE: Pain 11/13 rt ankle No sob All other systems reviewed and negative other than noted above. OBJECTIVE: Physical Examination: BP (!) 152/77 (BP Location: Left arm, Patient Position: Lying) Pulse 66 Temp 99.1 F (37.3 C) (Oral) Resp 14 Ht 5' 11 Wt 129.4 kg (285 lb 4.4 oz) SpO2 97% BMI 39.79 kg/m General Appearance: Alert, well appearing, and in no acute distress. HEENT: Head - Normocephalic, atraumatic. Eyes - ALEKS bilaterally and EOMI. Ears - normal external appearance, hearing intact. Nose - normal, no erythema. Throat - mucous membranes moist, pharynx without lesions. Neck: Supple, trachea midline. Cardiovascular: S1, S2 normal. No murmurs, rubs, clicks or gallops appreciated. No pedal edema. Respiratory: Lungs clear to auscultation, no wheezes, rales or rhonchi heard. Abdomen: Soft, non-tender, normal bowel sounds, non-distended, no masses or organomegaly appreciated. Neurological: Grossly normal motor and sensory exam. No focal deficits. Musculoskeletal: Status post surgery right foot with external fixator Skin: Normal coloration and turgor. No rashes. Psych: Alert, oriented x 3. Normal mood and affect. CURRENT MEDICATIONS: aspirin 162 mg Oral Daily atorvastatin 40 mg Oral Nightly calcium carbonate 1,000 mg Oral Daily carvediloL 12.5 mg Oral Q12H ceFAZolin (ANCEF) IVPB 2,000 mg Intravenous Q8H docusate sodium 100 mg Oral Daily fenofibrate 160 mg Oral Daily with breakfast finasteride 2.5 mg Oral Once per day on Wed gabapentin 300 mg Oral Nightly heparin (porcine) 5,000 Units Subcutaneous Q8H [facility] insulin glargine 50 Units Subcutaneous Nightly lispro insulin 0-15 Units Subcutaneous at bedtime insulin lispro 0-30 Units Subcutaneous TID AC insulin regular 50 Units Subcutaneous TID AC levothyroxine 112 mcg Oral Daily lisinopril 20 mg Oral BID magnesium oxide 400 mg Oral Daily melatonin 10 mg Oral Nightly metFORMIN 1,000 mg Oral BID multivitamin 1 tablet Oral Daily tamsulosin 0.4 mg Oral After evening meal Results/Medications Reviewed 11/22/19 11:10 AM: Results from last 7 days Lab Units 11/22/19 0449 11/21/19 0643 11/20/19 1035 SODIUM mmol/L 139 139 142 POTASSIUM mmol/L 4.2 4.9 4.4 CHLORIDE mmol/L 105 107 108 BUN mg/dL 25 28* 24 CREATININE mg/dL 1.20 1.38* 1.11 GLUCOSE mg/dL 180* 229* 119* CALCIUM mg/dL -- 8.4 9.6 Results from last 7 days Lab Units 11/22/19 0449 11/21/19 0643 WBC K/mcL 11.19* 8.73 HGB g/dL 11.2* 11.7* HCT % 35.9* 36.9* PLT K/mcL 155 203 Results from last 7 days Lab Units 11/20/19 1035 INR 1.0 CULTURES: Reviewed 11:10 AM IMAGING: Reviewed 11:10 AM * Rosa M Robles DPM - 11/22/2019 11:05 AM EST Progress Inpatient Follow-up 11/22/2019 Rosa M Robles DPM [facility] Patient: Dyllan Huertas Date of : 1960 (59 y.o.) PCP: Rohit Aguilar MD ASSESSMENT/PLAN: Dyllan Huertas 59 y.o. male with history of Charcot deformity of the right foot with osteomyelitis. Status post midfoot wedge resection of the right foot and application of Ilizarov frame for fixation x2 days doing well. Plan: Patient is going to need to go to an extended care facility for healing over the next 4 to 6 weeks. Patient be absolute nonweightbearing with a wheelchair. Dressings are to be handled by Dr. Mora. Patient will need 4 to 6 weeks of IV antibiotics based on bone cultures which were positive for enterococcus. Patient will need a postoperative appointment with Dr. Mora in 1 week. No new Assessment & Plan notes have been filed under this hospital service since the last note was generated. Service: Podiatry SUBJECTIVE: History Since Last Visit: Patient is a 59-year-old male of mine who is had a significant Charcot collapse of the right midfoot with an ulceration. Patient originally had a percutaneous Achilles tendon lengthening and a planing of the Charcot deformity which had healed the ulcer many years ago but unfortunately he re-ulcerated in the last 6 months. I had patient see Dr. Mora for the wound and a Charcot foot reconstruction. Patient underwent a midfoot wedge resection on Wednesday with an Ilizarov frame form of fixation. Patient denies nausea vomiting fevers or chills he relates he is doing well since surgery. Patient is ready to go to an ECF Pending Lab and Radiology Results Order Current Status XR Ankle Left 3+ Views (Standard) In process Wound Aerobic Culture Preliminary result Review of Systems: OBJECTIVE: Physical Examination: BP (!) 152/77 (BP Location: Left arm, Patient Position: Lying) Pulse 66 Temp 99.1 F (37.3 C) (Oral) Resp 14 Ht 5' 11 Wt 129.4 kg (285 lb 4.4 oz) SpO2 97% BMI 39.79 kg/m Integument-toes 1 through 5 on the right foot were pink and warm Vascular-capillary refill time is less than 3 seconds of the right foot and the right foot was warmto touch. Neuro-diminished on the right Musculoskeletal-there is Ilizarov frame with a dressing around it that appears to be intact. X-raysreviewed that show that midfoot wedge resection had been performed and the Ilizarov frame was holding the proximal and distal aspects of the foot together. Laboratory and Additional Data Reviewed: Reviewed:[id number]} * Roopa Sahu - 11/22/2019 9:27 AM EST Physical Therapy PHYSICAL THERAPY TREATMENT NOTE Skilled Therapy Needs After Discharge Anticipate Resolution of Current Assessment Limitations Including: Pain Are Skilled Therapy Services Needed After Discharge: Yes Intensity of Skilled Therapy: 5 to 7 days per week Anticipated Duration of Skilled Therapy: Duration 10 - 30 days DME Recommendation: Wheeled walker DME Rationale: Patient's condition creates an increased risk of safety hazard without recommended equipment Rehab Potential: Good Outcomes Measures Prior Function - Basic Mobility Raw Score: 23 Points Prior Function - Basic Mobility % Impaired: 16.55% functionally impaired AM-PAC - Basic Mobility Raw Score: 10 Points AM-PAC - Basic Mobility % Impaired: 71.92% functionally impaired Activity Tolerance Therapy Precautions Orthotic Devices: Yes Lower Extremity: External Fixator, Right Weight Bearing Status: X RLE: Non Wt bearing General Rehab Precautions: Fall risk Released to [facility] with ARJO. Balance Bed Mobility Rolling: Min Supine to Sit: Min Skilled Intervention: Pt rolled wtih fabio in bed. Pt cued for B UE and LE placement. required fabio for LE. Pt performed supine to sit wtih fabio. Pt cued for proper placement of B LE and required minafor B LE. Pad technique used to shift hips to eob. Pt cued to come to upright. Transfers Sit to Stand: Max, Two person assist Squat Pivot Transfers: Max, Two person assist Skilled Intervention: Pt performed sit to stand wtih maxa x 2. First attempt wtih R LE assisted offground wtih sheet by SPTA. Pad technique used to assist hip ext. Pt used ww. Pt co of RUE hurting and cued to bring R UE on walker before coming to standing. Pt unable to come to standing with maxa x2. Second attempt pt used ww, PSA assists R LE in sheet. maxa x 2 wtih pad to assist hip ext. Pt stillunable to come to upright. third attempt, walker removed. Pt cued to grasp arms of SPTA and SCRAP STRIPPER HAND. PSA assisted R LE off of ground. Pt cued for forward weight shift and came to upright with maxa x 2. Pt perfomed stand pivot transfer wtih maxa x 2. Pad technique used to aid hip ext. PSA assisted R LE off of ground. Pt took small pivot steps with L LE towards chair. Gait/Locomotion Exercise Ankle Pumps: 20 Skilled Intervention: Pt performed in supine: L LE 20 ankle pumps, heel slides, saqs, quad sets. R LE 10 saqs, 20 quad sets. Pt cued for proper exercise technique. Home Living Type of Home: House Home Layout: One level, Ramped entrance Bathroom Shower/Tub: Tub/shower unit Bathroom Toilet: Standard Bathroom Equipment: Tub transfer bench, Hand-held shower Bathroom Accessibility: Not accessible Home Equipment: Wheeled Walker, Mirror Installer, Wheelchair-manual(Kneeling scooter, surgical shoe and boot.) Additional Comments: W/C does not have elevating leg rests per pt Prior Level of Function Level of [place]: Independent with ADLs and functional transfers, Independent with homemaking with ambulation Lives With: Alone Receives Help From: Family ADL Assistance: Independent Homemaking Assistance: Independent Comments: Primarily in w/c; was to be NWBing on the RLE, but unable to maintain, when going into the bathroom; reports that the doctor was aware and okay with it. Drives on occasion. Was using push cart or motorized cart at the store, going ~1x/month. Sister lives next door. For complete objective data, detailed plan of care and patient education refer to: PT EVALUATION flow sheet, PT TREATMENT flow sheet, patient Plan of Care, Plan of Care progress note, and Patient Education. This note stands as the current Discharge Summary upon patient discharge from the hospital or completion of Physical Therapy Plan of Care. * Elizabeth Khan LISW - 11/21/2019 3:29 PM EST DISCHARGE PLAN PROGRESS NOTE Date: 11/21/2019 Time: 3:30 PM Patient Name: Dyllan Huertas Date of : 1960 Sex: Male Discussed the patient with DERICK Chin and CURT Liu. The patient went to surgery yesterday and has an external fixator placed on his right ankle. Both report the patient is unsafe to return home. No consult has been received. In addition to prison facility the patient may be a candidate [facility] or inpatient rehab per therapy staff. Met with the patient and educated to the social security assessor role. Patient reports living at home alone with no current home health care services. Patient reports he is receptive to prison facility placement and was provided a list of [facility] facilities for review. Patient requested a referral to be made to [facility] (first preference) and [facility] (second preference). Patient has been to the [facility] a couple of years ago. Patient reports he will only agree to placement for a few weeks as he is aware he will have daily co-pays starting at day 21 thathe would not be able to afford. Patient reports he is not Medicaid eligible. Called Latonya at [facility] who reported they are not in network with the patient's insurance. Called and left a message for Palmira at the [facility] with referral. Referral information sent to the [facility] viaIn Basket. ROCK RichS Discharge Readiness Expected Discharge Date: 11/21/19 Barriers to Discharge: No barriers Anticipated Discharge Plan Anticipated HME: None Anticipated [facility] * Boogie Phan MD - 11/21/2019 11:28 AM EST [facility] Inpatient Follow-up 11/21/2019 Boogie Phan MD [facility] Patient: Dyllan Huertas Date of : 1960 (59 y.o.) PCP: Rohit Aguilar MD ASSESSMENT/PLAN: Dyllan Huertas 59 y.o. 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 Pain control, will add po percocet to IV dilaudid DVT ppx will start sq heparin Cont diabetic management, lantus 50 qhs and ISS Scr higher today will start gentle hydration SUBJECTIVE: Pain 7/10 rt ankle No sob All other systems reviewed and negative other than noted above. OBJECTIVE: Physical Examination: BP 124/73 (BP Location: Right arm, Patient Position: Lying) Pulse 98 Temp 99 F (37.2 C) (Oral) Resp 16 Ht 5' 11 Wt 129.4 kg (285 lb 4.4 oz) SpO2 91% BMI 39.79 kg/m General Appearance: Alert, well appearing, and in no acute distress. HEENT: Head - Normocephalic, atraumatic. Eyes - ALEKS bilaterally and EOMI. Ears - normal external appearance, hearing intact. Nose - normal, no erythema. Throat - mucous membranes moist, pharynx without lesions. Neck: Supple, trachea midline. Cardiovascular: S1, S2 normal. No murmurs, rubs, clicks or gallops appreciated. No pedal edema. Respiratory: Lungs clear to auscultation, no wheezes, rales or rhonchi heard. Abdomen: Soft, non-tender, normal bowel sounds, non-distended, no masses or organomegaly appreciated. Neurological: Grossly normal motor and sensory exam. No focal deficits. Musculoskeletal: No joint tenderness, deformity or swelling. Skin: Normal coloration and turgor. No rashes. Psych: Alert, oriented x 3. Normal mood and affect. CURRENT MEDICATIONS: aspirin 162 mg Oral Daily atorvastatin 40 mg Oral Nightly calcium carbonate 1,000 mg Oral Daily carvediloL 12.5 mg Oral Q12H docusate sodium 100 mg Oral Daily fenofibrate 160 mg Oral Daily with breakfast finasteride 2.5 mg Oral Once per day on Wed gabapentin 300 mg Oral Nightly insulin glargine 50 Units Subcutaneous Nightly lispro insulin 0-15 Units Subcutaneous at bedtime insulin lispro 0-30 Units Subcutaneous TID AC insulin regular 50 Units Subcutaneous TID AC levothyroxine 112 mcg Oral Daily lisinopril 20 mg Oral BID magnesium oxide 400 mg Oral Daily melatonin 10 mg Oral Daily metFORMIN 1,000 mg Oral BID multivitamin 1 tablet Oral Daily tamsulosin 0.4 mg Oral After evening meal Results/Medications Reviewed 11/21/19 11:29 AM: Results from last 7 days Lab Units 11/21/19 0643 11/20/19 1035 SODIUM mmol/L 139 142 POTASSIUM mmol/L 4.9 4.4 CHLORIDE mmol/L 107 108 BUN mg/dL 28* 24 CREATININE mg/dL 1.38* 1.11 GLUCOSE mg/dL 229* 119* CALCIUM mg/dL 8.4 9.6 Results from last 7 days Lab Units 11/21/19 0643 WBC K/mcL 8.73 HGB g/dL 11.7* HCT % 36.9* PLT K/mcL 203 Results from last 7 days Lab Units 11/20/19 1035 INR 1.0 Invalid input(s): LABALBU CULTURES: Reviewed 11:29 AM IMAGING: Reviewed 11:29 AM documented in this encounter* Gloria Mcdowell RN - 08/23/2020 9:13 AM EST This RN wore a mask and gloves while doing patient care with GURPREET Ceballos. Patient wearing mask at all times while staff in the room. * Richelle Chance RN - 08/23/2020 7:49 AM EST Nurse wore gloves and mask while taking care of patient. Patient wearing mask at all times while staff in the room. * Delmy Pinto RN - 08/23/2020 7:45 AM EST Patient called today for COVID-19 screening regarding upcoming appointment in Wound Clinic Have you been in close contact with anyone confirmed to have coronavirus/COVID- 19 in the past 14 days? No Have you traveled out of state or internationally in the past 14 days? No In the last 24 hours have you had any of the following symptoms? Fever over 100 F No Cough No Shortness of breath or difficulty breathing No Chills or repeated shaking with chills No Muscle pain, headache, or sore throat No Any loss of taste or smell No Diarrhea No Patient was informed of new procedure to gain access Wound clinic. Patient was reminded at this time wound clinic is not allowing visitors for social distancing purposes. * Maria Isabel Awad MD - 08/23/2020 7:45 AM EST CONSULT NOTE 05/02/2020 Patient Name: Dyllan Huertas Admit Date: MR #: [id number] : 1960 Physicians: Rohit Aguilar MD (Family); No ref. 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 antibiotic Will need to watch very closely for any recurrence of infection and treat aggressively if indicatedin the future May 10 New blister of the right great toe Postop wound of the right ankle from surgery in May 01, 2020 May 24 Right foot postop wound is clean no drainage no cellulitis Enterobacter and gram-negative June 07 Postop wound is healed up Right great toe superficial ulceration no evidence of cellulitis right now Last CRP 7 and sed rate 37 #9 July Plantar foot wound is healed and stayed healed Toe ulcer is clean August 02, 2020 Right foot ulcer healed Right foot Charcot with hardware placed May 01, 2020 Right anterior leg area wound with trauma with a step no kali ulceration x-ray done by Dr. Archer was negative for any fracture Tiny blisters if at all any August 09 Right toe ulcer healed Right leg blisters healed Hardware right foot with right foot ulcer on long-term suppressive antibiotic treatment Right leg x-ray negative for fracture right foot x-ray with hardware and a fracture I would leave that up to Dr. Mora August 23 Right toe ulcers are clean Foot ulcer healed Postop wound healed up completely No redness noted Lab work done CRP was less than 2.9 sed rate 32 his glucose was 46 was addressed Recommend August 23 Doxycycline 100 g p.o. once a day till October 2020 He does have [address] Mora Return to see me in [address] Mora August 09 Doxycycline 100 mg p.o. per day till October 2020 Patient has one refill Return to see me in 2 weeks We'll order a CBC CMP sed rate CRP while he is on long-term suppressive treatment can be drawn at one of his next visits here put the order in the computer Dressing per Dr. Mora to the right great toe August 02 Doxycycline 100 g p.o. per day till October 2020 Right anterior leg area with tiny blisters I need to culture because he has hardware in the ankle we want to be very aggressive with any antibiotic management Consider Triad to the right anterior leg area I would leave it up to Dr. Mora Return to see me next week with Dr. Mora July 12 Doxycycline 100 g p.o. once a day suppressive treatment till October [address] Mora Culture the right toe today Readjust antibiotics if needed June 07 Doxycycline decreased to 100 mg p.o. per day We will go with suppressive treatment although wait till October 2020 which will be 6 months postopand if we need to go longer will go up to 1 year total Local dressings per Dr. Mora I will see him in [address] Mora I have discussed this with the patient as well as podiatry May 24 Doxycycline 100 g p.o. twice daily continue for now till June 18 After that we will cut it down to 1 tablet of doxycycline per day for long-term suppressive treatment may need to go up to November 03, 2020 to make it 6 months postop I looked at the films with Dr. Mora from last time Cast per Dr. Mora I will see him in 2 weeks X-ray per Dr. Mora today Labs will be done today here May 10 Cast was changed by podiatry today incision looks good without any evidence of secondary infection Doxycycline 100 mg p.o. twice a day continued for total of 1 month he has enough Revisit 2 weeks May 03 Discontinue the order for PICC line Discontinue IV cefepime P.o. doxycycline 100 mg twice daily for 30 days Follow-up in the wound clinic on Wednesdays with myself and Dr. Mora Any dressing orders will be per I have discussed with the patient as well as hospitalist May 02 PICC line placement Cefepime 2 g IV every 12 Follow-up current OR cultures however with the extent of infection he had before it would be prudent to give prolonged IV for now hardware would be at risk for infection CBC CMP sed rate CRP blood cultures x2 half an hour apart [employer]NAGEMENT to be sent today I have discussed with the hospitalist Chief Complaint/Reason for Visit: I am seeing this patient at the request of Dr. Emilie MD. I have reviewed the current hospital record, available laboratory, cardiology and imaging studies as well as available out patient records. History of Present Illness: Admission H&P by Ramírez Damico CNP on 05/01/2020: Dyllan Huertas is a 59 y.o. male with history of IDDM and neuropathy presents for status post right ankle arthrodesis. Dr. Mora performed the procedure today. Patient laid on bed without complaint. Patient is afebrile, vitals are stable. Patient will be on antibiotics and continue home meds. 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 doxycycline suppressive treatment for Enterobacter cloaca infection he also received Rocephinat one point eventually on May 01, 2020 patient underwent extensive surgery to the 7-hour surgery by Dr. Mora which was right foot arthrodesis subtalar arthrodesis right ankle which is corrective surgery for his Charcot and infectious disease consult for further help with antibiotic management Past medical surgical social family history nobody with boils all his details of previous history is in the notes He was a long-term suppressive treatment with doxycycline He is a chronic Schulte catheter because of nonweightbearing He had done home IV antibiotics in the past The Enterobacter cloaca he was Penson Allergy Information: I have reviewed the patient's allergies. Patient has no known allergies. Current Scheduled Meds: PMH/PSH/SH/ reviewed, no change except: He is in the hospital receiving intravenous antibiotics May [address] Mora she said the approach she took for the surgery was a totally different area than the previous infected area intraoperatively she did not find any evidence of infection the bone was hard Intra-Op cultures were not done at this point based on her information we maynot need prolonged IV antibiotics at the midline order was discontinued and he would continue to maintain p.o. antibiotic to make sure skin soft tissue healing occurs and we will need to follow him in the wound clinic on a regular basis watch closely for any infection Patient also has his brother's today Denies any pain in the right ankle Review of Systems: All systems were reviewed and negative except: No fever chills nausea vomiting diarrhea Medications Reviewed. Chart Reviewed Physical Examination: BP 123/75 Pulse 96 Temp 97.9 F (36.6 C) (Infrared) Resp 18 SpO2 95% Exam Findings: Constitutional: Awake alert answers all question HENT: Pupils reactive head: No oral candidiasis Eyes: No icterus Neck: Supple Cardiovascular: Heart S1-S2 2 by systolic murmur present no S3 Murmur Pulmonary/Chest: Clear Abdominal: Soft Musculoskeletal: No calf tenderness on the right leg he has an Zechariah bandage postop Neurological: Right great toe tip there is a blackish discoloration which will need to watch closely but he does have sensations difficult to move toes in his postop brace Skin no redness or cellulitis n prior to surgery by Dr. Abby Schulte: He is on long-term Schulte catheter because of nonweightbearing is being followed by Dr. Izquierdo he still has a Schulte may come out in July IV: other: He is now status post right ankle arthrodesis by Dr. Mora on 05/01/2020 postop Ze[address]iah bandage in place is able to recall the toes some toes are not discolored they look normal May 10 incision looks good per podiatry at the time of changing the cast May 24 incision looks good. The right great toe eschar is also with good bleeding June 07 postop wound healed up completely right great toe ulcer superficial without cellulitis July 12 the plantar foot wound is healed and stayed healed the great toe ulcer is very superficial clean August 02 right anterior leg tiny blister with trauma against a step Right foot ulcer is healed stayed healed he has hardware there is no redness in the foot right great toe eschar is dry The anterior tibial area we can feel a bump in the bone though there was no fracture August 09 right great toe right anterior leg right plantar foot all wounds healed up hardware right foot on long-term suppressive treatment no cellulitis August 23 plantar foot wound remains healed completely no redness no swelling no warmth Wound (Outpatient Only) 03/31/19 Foot Anterior;Right;Plantar (Active) Wound Image 04/26/20 1300 Wound Length (cm) 0 cm 04/26/20 1300 Wound Width (cm) 0 cm 04/26/20 1300 Wound Depth (cm) 0 cm 04/26/20 1300 Wound Surface Area (cm^2) 0 cm^2 04/26/20 1300 Wound Volume (cm^3) 0 cm^3 04/26/20 1300 Area % Change -100 04/26/20 1300 Volume % Change 0 04/26/20 1300 Tunneling Maximum Distance (cm) 0 cm 04/26/20 1300 Tunneling Position (o'clock) 0 04/26/20 1300 Undermining Maximum Distance (cm) 1 0 cm 04/26/20 1300 Undermining Starting Position (o'clock) 1 0 04/26/20 1300 Undermining Ending Position (o'clock) 1 0 04/26/20 1300 Wound Encounter Subsequent 04/26/20 1300 Wound Progress Improving 04/26/20 1300 Non-staged Wound Description Partial thickness 02/09/20 0700 Drainage Amount None 04/26/20 1300 Drainage Description Yellow 02/09/20 0700 Odor None 04/26/20 1300 Wound Margin Attached to wound base 03/01/20 0700 Adherent Yellow Slough % None 04/26/20 1300 Moist Yellow Slough % None 04/26/20 1300 Dry Black Eschar % None 04/26/20 1300 Moist Black Eschar % None 04/26/20 1300 Epithelialization % 76-100% 04/26/20 1300 Granulation % None 04/26/20 1300 Exposed Structure None 04/26/20 1300 Wound Bed Characteristics Clean;Dry;Intact 04/26/20 1300 Wound Closure Sutures 12/28/19 0815 Angeli-wound Assessment Temperature WNL 04/26/20 1300 Treatments Not Applicable 04/26/20 1300 Hemostasis Not applicable 04/26/20 1300 Cleansed Soap and water 04/26/20 1300 Primary Dressing Collagen;Antibiotic ointment / cream 02/09/20 0822 Secondary Dressing Gauze pad;Gauze roll 02/09/20 0822 Compression Dressing Tubilar eleastic bandage 04/26/20 1300 Wound 05/01/20 Surgical Wound Foot Right (Active) Wound Image 05/24/20 0858 Wound 05/10/20 Great Toe Anterior;Right (Active) Wound Image 08/23/20 0827 Wound Length (cm) 0.5 cm 08/02/20 0744 Wound Width (cm) 1.5 cm 08/02/20 0744 Wound Depth (cm) 0.1 cm 07/12/20 0805 Wound Surface Area (cm^2) 0.75 cm^2 08/02/20 0744 Wound Volume (cm^3) 0.03 cm^3 07/12/20 0805 Area % Change 134.38 08/02/20 0744 Drainage Amount None 08/09/20 0746 Drainage Description Serosanguineous 07/05/20 0832 Odor None 08/02/20 0744 Wound Margin Attached to wound base 08/02/20 0744 Adherent Yellow Slough % None 08/02/20 0744 Moist Yellow Slough % None 08/02/20 0744 Dry Black Eschar % None 08/02/20 0744 Moist Black Eschar % None 08/02/20 0744 Epithelialization % 76-100% 08/09/20 0746 Granulation % 76-100%;[place] 07/12/20 08 Exposed Structure None 07/12/20 08 Wound Bed Characteristics Dry;Intact;Brown;[place] 08/02/20 0744 Cleansed Soap and water 08/09/20 0746 Primary Dressing Collagen with silver 08/23/20 0827 Secondary Dressing Foam 08/02/20 1000 Compression Dressing Zechariah wrap 08/02/20 1000 Wound 08/02/20 Pre-tibial Right (Active) Wound Image 08/09/20 0746 Wound Progress Initial exam 08/02/20 0745 Cleansed Soap and water 08/02/20 0745 I have personally reviewed the labs and results Test results Laboratory and Additional Data Reviewed: Date: 08/23/2020 New labs/ results as of last note: 08/09/2020 Last WBC 6.14 on 11 6 Hemoglobin 11.2 hematocrit 35.1 platelet count 230 BUN 20 creatinine 1.09 sed rate 32 CRP less than 2.9 08/09/2020 X-Ray right tib/fib FINDINGS: Two views of the right tibia and fibula were obtained. There is redemonstration of transverse fracture in the distal tibial diaphysis status post placement retrograde intramedullary nail with calcaneal and interlocking screws in place. Fracture line remains visible without bridging callus formation. Postsurgical findings of distal fibular resection and cannulated ankle and subtalar joint screw are again noted. Soft tissue edema is noted around the leg and ankle., IMPRESSION: Redemonstration of distal tibial diaphysis fracture, status post ORIF without change in alignment or bridging callus formation. Additional postsurgical findings in the ankle and hindfoot with soft tissue edema. Update from previous note Current culture: 08/02/2020 Right leg, aerobic culture: Normal chalino after 48 hours. Current Antibiotics: Doxycycline 100 mg po Daily through 10/2020 Previous Antibiotics: Maxipime 2 grams IV every 12 hours Doxycycline 100 mg PO daily until June 03, suppressive treatment Merrem 1,000 mg IV every 12 Hours Rocephin 2 gm IV every 24 Hours until 01/02/2020 Ancef 2,000 mg IV Dressings: Right leg: Below the knee cast per Dr. Mora Date: 08/09/2020 New labs/ results as of last note: 08/02/2020 I have personally reviewed all labs and other results. Labs and additional results reviewed: 08/02/2020 X-ray right tib/fib FINDINGS: Intramedullary tommy is noted in the tibial shaft. Additional screws and pins are noted in hindfoot. The hardware appears intact. Resection of the distal fibula is again noted. There is the transverse fracture through the distal tibial shaft that is new from the prior study. IMPRESSION: New acute fractures in the distal tibial shaft. 08/02/2020 X-ray right ankle FINDINGS: RIGHT TIBIA FIBULA: Retrograde intramedullary tommy through the calcaneus, talus extending to the mid tibia with a singleproximal tibial screw redemonstrated. Separate retrograde orthopedic screw extending through the calcaneus, talus and to the distal tibia. There is a new acute transverse fracture involving the [id number] diaphyseal shaft of the tibia surrounding the intact intramedullary tommy. Additional lag screw through the calcaneus. Resection of the distal fibula redemonstrated. Some mild generalized soft tissue edema. RIGHT ANKLE: Orthopedic changes about the proximal foot redemonstrated as described above. Severe degenerative changes of the visualized midfoot. Prominent inferior and moderate superior calcaneal spur redemonstrated. Some bony fragmentation along the lateral aspect of the ankle and some ossification along the plantar fascial region redemonstrated. Soft tissue edema about the ankle. IMPRESSION: 1. New acute transverse fracture involving the distal diaphyseal shaft is in good alignment and surrounds an intact retrograde intramedullary tommy extending through the calcaneus, talus into the mid tibial region with a single proximal tibial screw. 2. Stable orthopedic fixation of the ankle as described above. 3. Prior resection of the distal fibula redemonstrated. 4. Some mild soft tissue edema of the lower extremity including the ankle. GJT/ges Update from previous note Current culture: 08/02/2020 Right leg, aerobic culture: Normal chalino after 48 hours. Current Antibiotics: Doxycycline 100 mg po Daily through 10/2020 Previous Antibiotics: Maxipime 2 grams IV every 12 hours Doxycycline 100 mg PO daily until June 03, suppressive treatment Merrem 1,000 mg IV every 12 Hours Rocephin 2 gm IV every 24 Hours until 01/02/2020 Ancef 2,000 mg IV Dressings: Right leg: Cellerate and bacitracin Right great toe: Kb Date: 08/02/2020 No new labs/ results as of last note: 07/12/2020 X-rays right leg taken 07/24/[address] Archer's [place] office. Per patient, Dr. Archer told him Update from previous note Current Antibiotics: Doxycycline 100 mg po Daily through 10/2020 Previous Antibiotics: Maxipime 2 grams IV every 12 hours Doxycycline 100 mg PO daily until June 03, suppressive treatment Merrem 1,000 mg IV every 12 Hours Rocephin 2 gm IV every 24 Hours until 01/02/2020 Ancef 2,000 mg IV Current culture: 07/12/2020 Right great toe, aerobic culture: Normal chalino after 48 hours. Dressings: Right great toe: Kb Right leg: Kerlix, zechariah. Date: 06/07/2020 New labs/ results as of last note: 05/24/2020 Labs and other data reviewed: CBC Auto Differential Component Ref Range & Units 12d ago (05/24/20) 1mo ago (05/03/20) 1mo ago (05/02/20) 1mo ago (05/01/20) 1mo ago (04/26/20) 3mo ago (02/09/20) 5mo ago (12/28/19) WBC 4.50 - 11.00 K/mcL 4.09Low 6.78 8.37 6.59 6.01 4.66 RBC 4.50 - 5.90 M/mcL 3.80Low 3.46Low 3.58Low 4.91 4.53 4.42Low Hemoglobin 13.5 - 17.5 g/dL 10.8Low 9.8Low 10.3Low 12.6Low 14.0 12.1Low 11.6Low Hematocrit 41.0 - 53.0 % 32.4Low 30.0Low 30.8Low 37.8Low 42.4 38.2Low 38.0Low MCV 80.0 - 100.0 fL 85.3 86.7 86.0 86.4 84.3 86.0 MCH 26.0 - 34.0 pg 28.4 28.3 28.8 28.5 26.7 26.2 MCHC 31.0 - 37.0 g/dL 33.3 32.7 33.4 33.0 31.7 30.5Low Platelets 150 - 400 K/mcL 169 139Low 163 230 196 182 Comprehensive Metabolic Panel Component Ref Range & Units 12d ago (05/24/20) 1mo ago (05/03/20) 1mo ago (05/02/20) 1mo ago (05/01/20) 3mo ago (02/09/20) 5mo ago (12/28/19) 5mo ago (12/18/19) Sodium 135 - 145 mmol/L 141 138 140 142 142 142 142 Potassium 3.5 - 5.1 mmol/L 4.2 4.3 5.1 4.4 4.3 4.3 4.5 Chloride 98 - 108 mmol/L 110High 106 106 110High 109High 109High 106 Bicarbonate 21 - 32 mmol/L 26 27 28 27 28 31 25 Anion Gap 10 - 20 mmol/L 9Low 9Low 11 9Low 9Low 6Low 16 Glucose 65 - 99 mg/dL 171High 157High 262High 114High 205High 135High 82 BUN 8 - 25 mg/dL 17 29High 22 16 22 18 23 Creatinine 0.50 - 1.30 mg/dL 0.84 1.42High 1.51High 0.94 0.94 0.71 1.04 eGFR >=60 mL/min/1.73 m2 97 54Low 51Low 90 90 104 79 BUN/Creatinine Ratio 10.0 - 20.0 20.2High 20.4High 14.6 17.0 23.4High 25.4High 22.1High Total Protein 6.0 - 8.0 g/dL 6.6 6.3 6.9 7.0 7.2 Albumin 3.2 - 5.2 g/dL 3.2 3.0Low 3.5 3.1Low 3.0Low Calcium 8.4 - 10.2 mg/dL 9.3 8.1Low 8.3Low 9.1 9.2 9.2 9.6 Alkaline Phosphatase 40 - 150 U/L 95 52 72 93 94 AST 0 - 45 U/L 14 11 14 16 20 Total Bilirubin 0.0 - 1.3 mg/dL 0.3 0.3 0.3 0.4 0.3 ALT 14 - 65 U/L 21 11Low 19 19 27 CRP, Inflammation Component Ref Range & Units 12d ago (05/24/20) 1mo ago (05/03/20) 3mo ago (02/09/20) 5mo ago (12/28/19) 5mo ago (12/18/19) 5mo ago (12/12/19) 6mo ago (12/05/19) CRP(Inflammation) <=10.0 mg/L 7.0 92.3High 5.7 6.4 18.7High 52.4High 85.3High Sedimentation Rate Order: [id number] Status: Final result Visible to patient: No (not released) Next appt: 06/07/2020 at 08:30 AM in Wound Care (Maria Isabel Awad MD) Dx: Elevated C-reactive protein (CRP); El... Component Ref Range & Units 12d ago (05/24/20) 1mo ago (05/03/20) 1mo ago (04/26/20) 3mo ago (02/09/20) 5mo ago (12/28/19) 5mo ago (12/18/19) 5mo ago (12/12/19) Sed Rate 0 - 20 mm/hr 36High 45High 23High 24High 33High 72High 91High 05/24/2020 X-Ray Right ankle IMPRESSION: Postsurgical changes without acute osseous abnormality. 05/24/2020 X-Ray Right Foot IMPRESSION: Postsurgical changes without acute osseous abnormality. Update from previous note Current Antibiotics: Doxycycline 100 mg PO BID through 06/18/2020, then one tablet daily for 6 months. Previous Antibiotics: Maxipime 2 grams IV every 12 hours Doxycycline 100 mg PO daily until June 03, suppressive treatment Merrem 1,000 mg IV every 12 Hours Rocephin 2 gm IV every 24 Hours until 01/02/2020 Ancef 2,000 mg IV Update from previous note Current Cultures: 05/02/2020 Urine Aerobic Culture: No Growth. Final. 05/02/2020 Blood Culture #2: In Progress; No Growth after 5 days. Final. 05/02/2020 Blood Culture #1: In Progress; No Growth after 5 days. Final. Dressings: per Dr. Mora Right great toe: Betadine, DSD Right lower extremity: Cast Date: 05/24/2020 No new labs/ results as of last note: 05/10/2020 Update from previous note Current Antibiotics: Doxycycline 100 mg PO BID. Last day 06/02/2020. Previous Antibiotics: Maxipime 2 grams IV every 12 hours Doxycycline 100 mg PO daily until June 03, suppressive treatment Merrem 1,000 mg IV every 12 Hours Rocephin 2 gm IV every 24 Hours until 01/02/2020 Ancef 2,000 mg IV Update from previous note Current Cultures: 05/02/2020 Urine Aerobic Culture: No Growth. Final. 05/02/2020 Blood Culture #2: In Progress; No Growth after 5 days. Final. 05/02/2020 Blood Culture #1: In Progress; No Growth after 5 days. Final. Dressing: Per Dr. Mora Date: 05/10/2020 No new labs/ results as of last note: 05/03/2020 Current Antibiotics: Doxycycline 100 mg PO BID Previous Antibiotics: Maxipime 2 grams IV every 12 hours Doxycycline 100 mg PO daily until June 03, suppressive treatment Merrem 1,000 mg IV every 12 Hours Rocephin 2 gm IV every 24 Hours until 01/02/2020 Ancef 2,000 mg IV Update from previous note Current Cultures: 05/02/2020 Urine Aerobic Culture: No Growth. Final. 05/02/2020 Blood Culture #2: In Progress; No Growth after 5 days. Final. 05/02/2020 Blood Culture #1: In Progress; No Growth after 5 days. Final. Dressing: Per Dr. Mora Date: 05/03/2020 New labs/results as of last note Update from previous note Tmax: 98.8 Urine Output: 700 Stool: not recorded Current Antibiotics: Maxipime 2 gm IV every 12 Hours Previous Antibiotics: Doxycycline 100 mg PO daily until June 03, suppressive treatment Merrem 1,000 mg IV every 12 Hours Rocephin 2 gm IV every 24 Hours until 01/02/2020 Ancef 2,000 mg IV I have personally reviewed the labs and results Test results Laboratory and Additional Data Reviewed: Labs: CBC 05/03/2020 03:54 WBC: 6.78 RBC: 3.46 Hgb: 9.8 Hct: 30.0 Platelets: 139 Lymphocytes Abs: 0.89 Monocytes Abs: 0.91 CMP 05/03/2020 03:54 Glucose: 157 BUN: 29 Creatinine: 1.42 Sodium: 138 Potassium: 4.3 Total Protein: 6.3 Albumin: 3.0 Calcium: 8.1 Alk Phos: 52 AST: 11 ALT: 11 Total Bilirubin: 0.3 CRP 05/03/2020 03:54 92.3 Sed Rate 05/03/2020 03:54 45 U/A 05/02/2020 18:46 Clarity: Cloudy Specific [place]: 1.031 Protein: 100 Ketones: Trace Blood: Small Leukocyte Esterase: Large WBCS: 84 RBCS: 16 Bacteria: Many WBC Clumps: Many Hyaline Casts: 11-20 Amorphous Crystals: Few Mucus: Rare Current Cultures: 05/02/2020 Urine Aerobic Culture: No Growth, Incubation Continued. Preliminary. 05/02/2020 Blood Culture #2: In Progress; No Growth to Date. Preliminary. 05/02/2020 Blood Culture #1: In Progress; No Growth to Date. Preliminary. 04/28/2020 COVID-19, Molecular SARS-CoV-2 RNA: Not Detected. Final. Radiology: Right Ankle X-Ray 05/02/2020 FINDINGS: Fourteen spot fluoroscopic images were obtained in the operating room. Fluoroscopic technique limits osseous and soft tissue detail. Images demonstrate hindfoot and ankle joint arthrodesis with tibial intramedullary tommy extending through the calcaneus and talus. An additional cannulated lag screw is present on the final images, and a transcalcaneal fixation hardware is present. There is a proximal interlocking screw. A distal fibular osteotomy is present. Alignment appears anatomic. IMPRESSION: Spot fluoroscopic images obtained during right ankle arthrodesis. Please see dictated operative report for full details. Chest X-Ray 04/26/2020 ORDERED Current antibiotic received preop Ancef Previous Antibiotics: Doxycycline 100 mg PO daily until June 03, suppressive treatment Merrem 1,000 mg IV every 12 Hours Rocephin 2 gm IV every 24 Hours until 01/02/2020 Ancef 2,000 mg IV Invalid input(s): CO2 Current Cultures: 04/28/2020 COVID-19, Molecular SARS-CoV-2 RNA: Not Detected. Final. Recent Cultures: 12/28/2019 - Right foot, aerobic culture: Normal Chalino after 48 hours. 12/21/2019 - Right foot, aerobic - normal chalino after 48 hours 12/21/2019 - Right foot, anaerobic: No anaerobic growth at 2 days. 12/10/2019 Right Foot Wound Aerobic Culture: Normal Chalino After 48 Hours. Final 12/10/2019 Right foot wound, anaerobic culture: No anaerobic growth at 2 days. Final 12/08/2019 Urine Aerobic Culture: No Growth (<1,000 CFU/mL). Final. 12/07/2019 Urine Aerobic Culture on arrival to Nursing Rehab Unit: No Growth (<1,000 CFU/mL). Final. 12/02/2019 Right Foot Tissue Aerobic Culture: Normal Chalino After 48 Hours. Final. 12/02/2019 Right Foot Tissue AFB Culture: No Acid Fast Bacilli after 8 weeks. Final. 12/02/2019 Right Foot Tissue Anaerobic Culture: No Anaerobic Growth at 2 Days. Final. 12/02/2019 Right Foot Tissue Fungus Culture: No fungus isolated at 4 weeks. Final. 12/01/2019 Blood Culture #1: No Growth After 5 Days. Final. 12/01/2019 Blood Culture #2: No Growth After 5 Days. Final. 11/30/2019 Right Foot Wound Aerobic Culture: Normal Chalino After 48 Hours. Final. 11/21/2019 Left Leg Wound Aerobic Culture: Normal Chalino After 24 Hours. Final. 11/20/2019 Right Foot Tissue Aerobic Culture: Moderate Growth Enterobacter cloacae complex, S=Youssef Sensitive. Final. 11/20/2019 Right Foot Tissue Anaerobic Culture: No Anaerobic Growth at 2 Days. Final. 11/20/2019 Right Foot Bone Aerobic Culture: Light Growth Enterobacter Cloacae Complex, S=Youssef Sensitive. Final. 11/20/2019 Right Foot Bone Anaerobic Culture: No Anaerobic Growth at 2 Days. Final. 05/30/2019 Right Foot Tissue Aerobic Culture: Normal Chalino After 48 Hours. Final. 05/30/2019 Right Foot Tissue Anaerobic Culture: No Anaerobic Growth at 2 Days. Final. 03/23/2019 Right Foot Wound Aerobic Culture: Heavy Growth Raoultella Pl[place], R=Ampicillin, S=Remainder of panel. 03/09/2019 Right Foot Wound Aerobic Culture: Normal Chalino After 48 Hours. Final. 02/09/2019 Right Foot Wound Aerobic Culture: Normal Chalino After 48 Hours. Final. 01/19/2019 Right Toe Two Wound Aerobic Culture: Heavy Growth Enterobacter Cloacae Complex, S=Youssef Sensitive. Final. Radiology: Right Ankle X-Ray 05/02/2020 ORDERED Right Tib/Fib X-Ray 05/01/2020 1. Fusion of the tibia, talus, and calcaneus. Alignment is anatomic. There has been resection of the lateral malleolus. Right Ankle X-Ray 05/01/2020 FINDINGS: Images are obtained with the right ankle in a splint which obscures bony detail. There is interval resection of the distal right fibula. Internal fixation of the right ankle is seen with intramedullary tommy seen in the right tibia traversing the tibiotalar joint. Additional smaller surgical screw isseen traversing the tibiotalar joint. Internal fixation of the calcaneus is also seen with metallic tommy. Ankle and calcaneal fractures demonstrate normal alignment. Large plantar calcaneal spur is seen. Advanced degenerative changes are seen about the mid foot. Mild diffuse bony demineralization isseen. IMPRESSION: Images are obtained with the right ankle with in a splint which obscures bony detail. Postsurgical changes are seen, as detailed above with normal alignment. Right Tib/Fib X-Ray 05/01/2020 Status post removal of the external fixator with no acute osseous abnormality in the right tibia orfibula or right ankle. Right Foot X-Ray 05/01/2020 1. Prior external fixator replacement. Extensive deformity in the midfoot related to prior surgicalresection or Charcot changes. Continued subluxation between talus and navicular. 2. 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 Chest X-Ray 04/26/2020 ORDERED Right Foot X-Ray 11/20/2019 IMPRESSION: Intraoperative fluoroscopy for localization during right foot and ankle reconstruction and fixation. Please see operative report for details. Left Ankle X-Ray Ordered 11/20/2019 Right Tib/Fib,Right Foot X-Ray 02/16/2020 FINDINGS: There is extensive hardware from an external fixator present. This obscures fine bony detail.A single percutaneous pin is seen entering the plantar aspect of the foot through the calcaneus, talus, and entering the distal tibia. A 2nd slightly larger metallic tommy is seen entering the posterior calcaneus extending into the talus. Degenerative changes are present in the midfoot. There is soft tissue edema. IMPRESSION: Study is limited due to overlying external fixator. No significant change in alignment. NM White Cell Scan Spot Limited 03/08/2017 FINDINGS: A focal area of intense abnormal white blood cell migration is noted central plantar aspect of the right foot corresponding to the area of the wound demonstrated radiographically. No other focus of white blood cell migration abnormality is evident within the right or left foot. IMPRESSION: Focal area of abnormal white blood cell migration at the plantar aspect central right foot may be at the wound itself or may be involving the bone with associated fracture as demonstrated radiographically. Anatomic detail is insufficient for differentiation between the two. Renal U/S 03/07/2017 IMPRESSION: Severe thickening of the urinary bladder wall. This could be due to outlet obstruction with hypertrophy of the wall. If there is no such history, this should be evaluated with cystoscopy. CVPS: Lower Arterial Doppler: not on file Lower Venous Doppler: not on file 2D Echo 11/23/2019 Moderate LV enlargement with LVH. Global systolic dysfunction with segmental features. LVEF 30% Elevated LV filling pressures RV is dilated with severe RV dysfunction Mild mitral annular calcification, mild thickening of the aortic valve without hemodynamically significant valvular disease There is a atrial level right to left shunt identified with saline contrast with free breathing andValsalva most likely via PFO LVEF unchanged from to previous echo from 2017 Surgeries: Please see above for surgical history Procedure: RIGHT ANKLE ARTHRODESIS, SUBTALAR ARTHRODESIS RIGHT ANKLE, Bone [place] Graft From RightFibula, Application of Splint Date: 05/01/2020 Alena Mora DPM Procedure: RIGHT FOOT RECONSTRUCTION WITH APPLICATION OF CIRCULAR STATIC EXTERNAL FIXATION Date: 11/20/2019 Surgeon: Alena Mora DPM Procedure: ARTHROPLASTY 2ND TOE RIGHT FOOT Date: 01/25/2019 Surgeon: Rosa M Robles DPM Pathology: 12/02/2019 A. Soft tissue, Right Foot, excision: Non-specific ulcer. * Phoebe Duncan RN - 08/23/2020 7:45 AM EST Date: 08/23/2020 New labs/ results as of last note: 08/09/2020 08/09/2020 X-Ray right tib/fib FINDINGS: Two views of the right tibia and fibula were obtained. There is redemonstration of transverse fracture in the distal tibial diaphysis status post placement retrograde intramedullary nail with calcaneal and interlocking screws in place. Fracture line remains visible without bridging callus formation. Postsurgical findings of distal fibular resection and cannulated ankle and subtalar joint screw are again noted. Soft tissue edema is noted around the leg and ankle., IMPRESSION: Redemonstration of distal tibial diaphysis fracture, status post ORIF without change in alignment or bridging callus formation. Additional postsurgical findings in the ankle and hindfoot with soft tissue edema. Update from previous note Current culture: 08/02/2020 Right leg, aerobic culture: Normal chalino after 48 hours. Current Antibiotics: Doxycycline 100 mg po Daily through 10/2020 Previous Antibiotics: Maxipime 2 grams IV every 12 hours Doxycycline 100 mg PO daily until June 03, suppressive treatment Merrem 1,000 mg IV every 12 Hours Rocephin 2 gm IV every 24 Hours until 01/02/2020 Ancef 2,000 mg IV Dressings: Right leg: Below the knee cast per Dr. Mora documented in this encounter* Scottie Hall PSA - 04/11/2020 11:29 AM EDT Patient called today for COVID-19 screening regarding upcoming appointment in wound clinic. Have you been in close contact with anyone confirmed to have coronavirus/COVID- 19 in the past 14 days? No Have you traveled out of state or internationally in the past 14 days? No In the last 24 hours have you had any of the following symptoms? Fever over 100 F No Cough No Shortness of breath or difficulty breathing No Chills or repeated shaking with chills No Muscle pain, headache, or sore throat No Any loss of taste or smell No Diarrhea No\ Patient was reminded at this time wound clinic is not allowing visitors for social distancing purposes. documented in this encounter* Gloria Mcdowell RN - 10/18/2020 10:00 AM EST This RN wore a mask and gloves while doing patient care. Patient wearing mask at all times while staff in the room. * Alena Mora DPM - 10/18/2020 9:51 AM EST Subjective: Patient is a pleasant 59-year-old male who presents to the wound care center 4 months status post ankle joint and subtalar joint arthrodesis via intramedullary nail fixation in treatment for his Charcot neuroarthropathy. Patient states that he is doing well. He has been NWB in the short leg cast and using wheel chair in treatment of his tibial fracture. Denies any pain to his right leg. No other p edal complaints at this time.Denies fevers, chills, nausea, vomiting, chest pain, shortness of breath, or any other constitutional symptoms. Objective: Vascular: DP and PT pulses are palpable. Cap refill time is brisk to distal digits. Skin temperature is warm to warm from proximal tibial tuberosity to distal digits. Right leg swelling at the site of fracture has resolved. Neuro: Gross sensation is intact. Protective sensation is absent. Derm:The previously noted ulceration to the right great toe has now healed. No surrounding erythema, edema, dehiscence or any acute signs of infection. All surgical incision sites are well healed. Nosurrounding erythema, edema, drainage, or any acute signs of infection. Small skin tear to third toe has resolved. Musculoskeletal: No pain to distal tibial fracture site. Patient is able to wiggle digits. Compartments are soft and compressible. No calf pain. No open wounds. Assessment: Non-displaced distal tibial fracture, right - Healing well. Status post ankle and subtalar joint arthrodesis via IM nail fixation, right lower extremity (Dr. Mora) Healed Full thickness ulceration right great toe - Healed Plan: Patient was seen and evaluated. Discussed all clinical and radiographic findings. New radiographs obtained today showing callous formation across the tibial fracture site with IMN spanning the fracture site. Interval osseous consolidation across ankle and subtalar joints. Hardwareis intact without any signs of failure or lucency. Patient's prior right great toe ulcer is now healed. No need for debridement. Applied Tubigrip and zechariah bandage from toes to knee to right lower extremity Patient is okay to begin partial weightbearing to the right lower extremity using his cam boot. Follow-up in the wound care center in 4 weeks Alena Mora DPM, MSBS Podiatric Physician and Surgeon documented in this encounter* Gloria Mcdowell RN - 08/02/2020 10:15 AM EDT This RN wore a mask and gloves while doing patient care. Patient wearing mask at all times while staff in the room. * Alena Mora DPM - 08/02/2020 10:07 AM EDT Associated Order(s): Wound Debridement Post-Procedure Diagnose(s): Charcot foot due to diabetes mellitus (HCC); Chronic ulcer of right great toe, with unspecified severity (HCC) Subjective: Patient is a pleasant 59-year-old male who presents to the wound care center 10.5 weeks status postankle joint and subtalar joint arthrodesis via intramedullary nail fixation in treatment for his Charcot neuroarthropathy. Patient states that he is doing well. He has been WB in the cam boot with his walker. Denies any pain to his right leg. Patient reports that his right great toe blister/necrotic ulcer is improving. Denies any redness, swelling, or drainage. No other pedal complaints at this time.Denies fevers, chills, nausea, vomiting, chest pain, shortness of breath, or any other constitutional symptoms. Objective: Vascular: DP and PT pulses are palpable. Cap refill time is brisk to distal digits. Skin temperature is warm to warm from proximal tibial tuberosity to distal digits. Neuro: Gross sensation is intact. Protective sensation is absent. Derm: Surgical incision sites are well healed. No angeli-incisional erythema, edema, dehiscence or any acute signs of infection. The right great toe has a full thickness ulceration measuring 1.0 x 0.3 x 0.1 cm. Wound bed is fibrogranular. No surrounding erythema, edema, drainage, or any acute signs of infection. Musculoskeletal: Compartments are soft and compressible. No calf pain. Assessment: 10.5 weeks status post ankle and subtalar joint arthrodesis via IM nail fixation, right lower extremity (Dr. Mora) doing well Full thickness ulceration right great toe - improving Plan: Patient was seen and evaluated. Discussed all clinical and radiographic findings. Previous radiographs obtained showing interval osseous consolidation across ankle and subtalar joints. Hardware is intact without any signs of failure or lucency. All incisions are clean and dry without any sign of infection. Patient has a full thickness ulceration at the right great toe secondary to a prior blister/deep tissue injury that is improving. This is a separate identifiable problem from his surgery. The black eschar was in need of debridement to remove noviable soft tissue. See procedure below. Following the procedure, kb was applied to right great toe; light sterile dressing and zechariah bandage to right leg Patient is to WBAT in the cam boot with the use his walker and may transition out as tolerated and discontinue his walker. Follow-up in the wound care center in 1 week Alena Mora DPM, MSBS Podiatric Physician and Surgeon Debridement Consent obtained? verbal Consent given by: patient Risks discussed? procedural risks discussed Immediately prior to the procedure a time out was called Performed by: physician Debridement type: surgical Level of debridement: subcutaneous tissue Pain control: none Post-debridement measurements Length (cm): 1 Width (cm): 0.3 Depth (cm): 0.1 Percent debrided: 100% Surface Area (cm^2): 0.3 Area debrided (cm^2): 0.3 Volume (cm^3): 0.03 Tissue and other material debrided: subcutaneous tissue Devitalized tissue debrided: biofilm Instrument(s) utilized: curette Bleeding: small Hemostasis obtained with: pressure Procedural pain (0-10): insensate Post-procedural pain: insensate Response to treatment: procedure was tolerated well documented in this encounter* Gloria Mcdowell RN - 10/18/2020 10:00 AM EST This RN wore a mask and gloves while doing patient care. Patient wearing mask at all times while staff in the room. * Alena Mora DPM - 10/18/2020 9:51 AM EST Subjective: Patient is a pleasant 59-year-old male who presents to the wound care center status post ankle joint and subtalar joint arthrodesis via intramedullary nail fixation in treatment for his Charcot neuroarthropathy. Patient states that he is doing well. He has been NWB in the short leg cast and using wheel chair in treatment of his tibial fracture. Denies any pain to his right leg. No other pedal complaints at this time.Denies fevers, chills, nausea, vomiting, chest pain, shortness of breath, or any other constitutional symptoms. Objective: Vascular: DP and PT pulses are palpable. Cap refill time is brisk to distal digits. Skin temperature is warm to warm from proximal tibial tuberosity to distal digits. Right leg swelling at the site of fracture has resolved. Neuro: Gross sensation is intact. Protective sensation is absent. Derm:The previously noted ulceration to the right great toe has now healed. No surrounding erythema, edema, dehiscence or any acute signs of infection. All surgical incision sites are well healed. Nosurrounding erythema, edema, drainage, or any acute signs of infection. Small skin tear to third toe has resolved. Musculoskeletal: No pain to distal tibial fracture site. Patient is able to wiggle digits. Compartments are soft and compressible. No calf pain. No open wounds. Assessment: 12 weeks s/p Non-displaced distal tibial fracture, right - Healing well. 5 months s/p ankle and subtalar joint arthrodesis via IM nail fixation, right lower extremity (Dr. Mroa) Healed Full thickness ulceration right great toe - Healed Plan: Patient was seen and evaluated. Discussed all clinical and radiographic findings. New radiographs obtained today showing callus formation across the tibial fracture site with IMN spanning the fracture site. Interval osseous consolidation across ankle and subtalar joints. Hardware is intact without any signs of failure or lucency. Patient's prior right great toe ulcer remains healed. No need for debridement. Applied Tubigrip and zechariah bandage from toes to knee to right lower extremity Patient is okay to begin full weightbearing to the right lower extremity in good supportive shoes/boots Patient is discharged today from [facility] and can follow up in my outpatient office in 3 months Alena Mora DPM, MSBS Podiatric Physician and Surgeon documented in this encounter* Nupur Davis DPM - 04/21/2019 2:16 PM EDT Associated Order(s): Wound Debridement Post-Procedure Diagnose(s): 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); Foot ulcer with fat layer exposed, right (HCC) Wound Care Debridement Timeout: Verbal Consent obtained?: Yes Written Consent obtained?: No Consent given by: Patient Immediately prior to procedure a time out was called to verify the correct patient, procedure, equipment, support service tech and site/side marked as required Timeout performed: 04/21/2019 2:16 PM Debridement Procedure: Debridement Performed for Assessment: Remove devitalized tissue Performed by: Physician Debridement Type: Surgical Pain Control: N/A Level: Skin/Subcutaneous Tissue Pre-Debridement Values: Length (cm): 1.5 Width (cm): 1.6 Depth (cm): 0.1 Area (sq cm): 2.4 Volume (cm3): 0.24 Post Debridement Measurements: Length (cm): 1.5 Width (cm): 1.6 Depth (cm): 0.1 Area (sq cm): 2.4 Volume (cm3): 0.24 Percent Debrided: 100 Total Area Debrided (sq cm): 2.4 Tissue and other material debrided: Subcutaneous Devitalized tissue debrided: Fibrin and Biofilm Instrument: Curette Bleeding: Minimal Hemostasis Achieved: Pressure Procedural Pain: Insensate Post Procedural Pain: Insensate Response to Treatment: Procedure was tolerated wellAssociated Wounds: Incision 01/25/19 Foot Right * Nupur Davis DPM - 04/21/2019 2:09 PM EDT HPI: Patient is a 58 y.o. male consulted to the Podiatry Service for left foot charcot ulceration. He follows with Dr. Robles in the office. He has left midfoot ulceration that started after wearing surgical shoe following hammertoe surgery. He feels well. Using medihoney for dressing changes daily. Minimal drainage. Never smoker. DM x years. A1c 8.5%. RLE edema. Taking lasix. Past Medical, Surgical, Family, and Social histories reviewed and updated in [facility] along with medications and allergies. Review of Systems: Patient denies any additional gastrointestinal, hepatic, renal, pulmonary, cardiac, neurological, musculoskeletal, or psychological conditions. Objective: Vascular: Peripheral pulses are palpable at 2 out of 4 for the right dorsalis pedis pulse, 2 out of4 for the left dorsalis pedis pulse, 2 out of 4 the right posterior tibial pulse, 2 out of 4 for the left posterior tibial pulse. CFT is less than 3 seconds bilaterally. Skin temperature is warm to warm proximal to distal bilaterally. Lower extremity edema Trace is observed to the bilateral lower extremities. Neurological: Epicritic sensation is grossly absent bilateral via light touch. Babinski test is plantigrade bilaterally. Achilles reflex is present bilateral. Patient is able to follow 2-step commands. No gross motor deficit appreciated at this time bilateral lower extremities. Dermatologic: Integument is intact bilateral lower extremity with the exception of wound noted to right plantar foot. Wound is granular. See picture and description below. Maceration angeli wound. Toenails 1 through 5 are thickened, elongated, and dystrophic with pain on palpation. Webspaces 1-4 bilaterally are clean, dry, and intact. Wound (Outpatient Only) 03/31/19 Foot Anterior;Right;Plantar (Active) Wound Image 04/21/2019 1:38 PM Wound Length (cm) 1.5 cm 04/21/2019 1:38 PM Wound Width (cm) 1.6 cm 04/21/2019 1:38 PM Wound Depth (cm) 0.2 cm 04/21/2019 1:38 PM Wound Surface Area (cm^2) 2.4 cm^2 04/21/2019 1:38 PM Wound Volume (cm^3) 0.48 cm^3 04/21/2019 1:38 PM Area % Change 100 04/21/2019 1:38 PM Volume % Change 0 04/21/2019 1:38 PM Tunneling Maximum Distance (cm) 0 cm 04/21/2019 1:38 PM Tunneling Position (o'clock) 0 04/21/2019 1:38 PM Undermining Maximum Distance #1 (cm) 0 cm 04/21/2019 1:38 PM Undermining Starting Position (o'clock) 1 0 04/21/2019 1:38 PM Undermining Ending Position (o'clock) 1 0 04/21/2019 1:38 PM Wound Encounter Subsequent 04/21/2019 1:38 PM Wound Progress No change 04/21/2019 1:38 PM Drainage Amount Moderate 04/21/2019 1:38 PM Drainage Description Serosanguineous 04/21/2019 1:38 PM Odor None 04/21/2019 1:38 PM Wound Margin Attached to wound base 04/21/2019 1:38 PM Adherent Yellow Slough % None 04/21/2019 1:38 PM Moist Yellow Slough % None 04/21/2019 1:38 PM Dry Black Eschar % None 04/21/2019 1:38 PM Moist Black Eschar % None 04/21/2019 1:38 PM Epithelialization % None 04/21/2019 1:38 PM Granulation % 76-100%;[place] 04/21/2019 1:38 PM Exposed Structure None 04/21/2019 1:38 PM Wound Bed Characteristics Granulation tissue;Pale;[place] 04/21/2019 1:38 PM Angeli-wound Assessment Callus;Yellow-brown 04/21/2019 1:38 PM Cleansed Soap and water 04/21/2019 1:38 PM Primary Dressing Betadine 04/14/2019 1:50 PM Secondary Dressing Gauze roll;Gauze pad 04/14/2019 1:50 PM Compression Dressing Tubilar eleastic bandage 04/14/2019 1:50 PM Musculoskeletal: Range of motion of the lower extremity at the ankle is diminished range of motion.Muscle strength is 4/5 for all muscle groups. Charcot with rocker bottom right foot, plantargrade left foot. Imagin/28 IMPRESSION: 1. Charcot foot with advanced deformity of the mid aspect of the right foot. 2. No obvious acute fracture is noted. [id number] soft tissue swelling and other degenerative changes noted. Labs: Lab Results Component Value Date HGBA1C 8.5 (H) 01/20/2019 Lab Results Component Value Date WBC 4.61 01/20/2019 Assessment: SNOMED CT(R) 1. 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) DIABETES MELLITUS 2. Foot ulcer with fat layer exposed, right (HCC) ULCER OF FOOT Plan: Pt examined and evaluated Continued maceration Will remove CAM at home and at rest to air out Begin STRICT NWB Radiographs reviewed only, significant collapse Will begin conservative therapy with local wound care, if no improvement may need repeat planing to remove prominent plantar bone Debridement of wound, see attached note Has history of CABG, told to take lasix when legs swell, taking now Will weigh himself daily Using protein suppplements Start betadine wet to dry daily, pt to change at home Follow up in 1 weeks. New xrays if no improvement Nupur Davis DPM documented in this encounter* Alena Mora DPM - 07/14/2019 2:04 PM EDT Associated Order(s): Wound Debridement HPI: Patient is a 58 y.o. male presents to the wound care center for follow-up evaluation and management to right foot plantar ulceration secondary to Charcot. He has right midfoot ulceration that started after wearing surgical shoe following hammertoe surgery. States that he has been limiting his weightbearing, keeping his ulceration clean, and applying medihoney for dressing changes daily. Minimal drainage. Never smoker. DM x years. A1c 8.5%. Denies fevers, chills, nausea, vomiting, chest pain, shortness of breath, or any other constitutional symptoms. Objective: Vascular: Peripheral pulses are palpable at 2 out of 4 for the right dorsalis pedis pulse, 2 out of4 for the left dorsalis pedis pulse, 2 out of 4 the right posterior tibial pulse, 2 out of 4 for the left posterior tibial pulse. CFT is less than 3 seconds bilaterally. Skin temperature is warm to warm proximal to distal bilaterally. Lower extremity edema Trace is observed to the bilateral lower extremities. Neurological: Epicritic sensation is grossly absent bilateral via light touch. Babinski test is plantigrade bilaterally. Achilles reflex is present bilateral. Patient is able to follow 2-step commands. No gross motor deficit appreciated at this time bilateral lower extremities. Dermatologic: Full-thickness ulceration noted to the plantar midfoot measuring 1.0 x 0.8 x 0.2 cm. The macerated border has resolved. Wound bed is granular. No periwound erythema, edema, drainage or any acute signs of infection. Wound does not probe to bone. No cellulitis or lymphangitis. Musculoskeletal: Range of motion of the lower extremity at the ankle is diminished. Muscle strengthis 4/5 for all muscle groups. Charcot with rocker bottom right foot, plantargrade left foot Radiographs reviewed noting 1. Charcot foot with advanced deformity of the mid aspect of the right foot. 2. Full thicknesss ulceration, right foot Labs: Lab Results Component Value Date HGBA1C 8.5 (H) 01/20/2019 Lab Results Component Value Date WBC 4.61 01/20/2019 Assessment: Full-thickness plantar ulceration, right foot - Stable Charcot neuroarthropathy Diabetes type 2 with peripheral neuropathy Plan: Patient was examined and evaluated. Wound is stable. No signs of infection Debridement was performed today, see procedure note. At this time patient will continue betadine to wound macerated border if present, and meta honey tothe wound bed. Patient is to limit weightbearing and to work on lowering his hemoglobin A1c with his PCP. Tentative plans for surgery in the next few month pending medical clearance and preoperative testing Patient understands that he is at high risk for limb loss. Follow up in 2 weeks Alena Mora DPM Wound Care Debridement Timeout: Verbal Consent obtained?: Yes Written Consent obtained?: Yes Consent given by: Patient Immediately prior to procedure a time out was called to verify the correct patient, procedure, equipment, support service tech and site/side marked as required Debridement Procedure: Debridement Performed for Assessment: Right plantar foot wound Performed by: Physician Debridement Type: Surgical Level: Skin/Subcutaneous Tissue Post Debridement Measurements: Length (cm): 1 Width (cm): 0.8 Depth (cm): 0.2 Area (sq cm): 0.8 Volume (cm3): 0.16 Percent Debrided: 100 Total Area Debrided (sq cm): 0.8 Tissue and other material debrided: Subcutaneous Devitalized tissue debrided: Biofilm and Callus Instrument: Curette Bleeding: Minimal Hemostasis Achieved: Pressure Procedural Pain: Insensate Post Procedural Pain: Insensate Response to Treatment: Procedure was tolerated well documented in this encounter* Nupur Davis DPM - 04/26/2020 2:07 PM EDT HPI: This 59 y.o. patient presents to clinic today to follow up right foot charcot reconstruction. The patient relates doing well. Wound is healed. Glucoses are improved. Awaiting staged surgery, possibly next week if A1C improved. Past Medical, Surgical, Family, and Social histories reviewed and updated in [facility] along with medications and allergies. Review of Systems: Patient denies any additional gastrointestinal, hepatic, renal, pulmonary, cardiac, neurological, musculoskeletal, or psychological conditions. Objective: Vascular: DP and PT pulses are palpable 2/4. Cap refill time is brisk to distal digits. Skin temperature is warm to warm from proximal tibial tuberosity to distal digits. +1 pitting edema noted to the right foot. Neuro: Gross sensation is intact. Protective sensation is absent. Dermatologic: The right foot plantar surgical incision site is well healed. All pin sites are healed as expected without any signs of infection. No openings. Musculoskeletal: Patient is able to wiggle digits. Compartments are soft and compressible. No calf pain. Wound (Outpatient Only) 03/31/19 Foot Anterior;Right;Plantar (Active) Wound Image 04/26/2020 1:00 PM Wound Length (cm) 0 cm 04/26/2020 1:00 PM Wound Width (cm) 0 cm 04/26/2020 1:00 PM Wound Depth (cm) 0 cm 04/26/2020 1:00 PM Wound Surface Area (cm^2) 0 cm^2 04/26/2020 1:00 PM Wound Volume (cm^3) 0 cm^3 04/26/2020 1:00 PM Area % Change -100 04/26/2020 1:00 PM Volume % Change 0 04/26/2020 1:00 PM Tunneling Maximum Distance (cm) 0 cm 04/26/2020 1:00 PM Tunneling Position (o'clock) 0 04/26/2020 1:00 PM Undermining Maximum Distance (cm) 1 0 cm 04/26/2020 1:00 PM Undermining Starting Position (o'clock) 1 0 04/26/2020 1:00 PM Undermining Ending Position (o'clock) 1 0 04/26/2020 1:00 PM Wound Encounter Subsequent 04/26/2020 1:00 PM Wound Progress Improving 04/26/2020 1:00 PM Non-staged Wound Description Partial thickness 02/09/2020 7:00 AM Drainage Amount None 04/26/2020 1:00 PM Drainage Description Yellow 02/09/2020 7:00 AM Odor None 04/26/2020 1:00 PM Wound Margin Attached to wound base 03/01/2020 7:00 AM Adherent Yellow Slough % None 04/26/2020 1:00 PM Moist Yellow Slough % None 04/26/2020 1:00 PM Dry Black Eschar % None 04/26/2020 1:00 PM Moist Black Eschar % None 04/26/2020 1:00 PM Epithelialization % 76-100% 04/26/2020 1:00 PM Granulation % None 04/26/2020 1:00 PM Exposed Structure None 04/26/2020 1:00 PM Wound Bed Characteristics Clean;Dry;Intact 04/26/2020 1:00 PM Wound Closure Sutures 12/28/2019 8:15 AM Angeli-wound Assessment Temperature WNL 04/26/2020 1:00 PM Treatments Not Applicable 04/26/2020 1:00 PM Hemostasis Not applicable 04/26/2020 1:00 PM Cleansed Soap and water 04/26/2020 1:00 PM Primary Dressing Collagen;Antibiotic ointment / cream 02/09/2020 8:22 AM Secondary Dressing Gauze pad;Gauze roll 02/09/2020 8:22 AM Compression Dressing Tubilar eleastic bandage 04/26/2020 1:00 PM Labs: Lab Results Component Value Date HGBA1C 8.5 (H) 02/20/2020 Lab Results Component Value Date WBC 6.01 02/09/2020 Lab Results Component Value Date SEDRATE 24 (H) 02/09/2020 Lab Results Component Value Date CRP 5.7 02/09/2020 Assessment: 1. Charcot's joint of right foot 2. 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) Plan: Patient was seen and evaluated. Discussed all clinical findings. Patient is doing well great. He has healed all this wounds. All pin sites are healed without any signs of infection Tubigrip and zechariah bandage to right LE Patient is to keep nonweightbearing to the right lower extremity at all times. Awaiting reduction of A1c for his TTC nail, planned staged procedure; awaiting endocrinology appointment, referral placed All questions were answered to satisfaction. Patient to follow up as scheduled with Dr. Abby Davis DPM documented in this encounter* Alena Mora DPM - 05/19/2019 1:14 PM EDT Associated Order(s): Wound Debridement Post-Procedure Diagnose(s): Skin ulcer of right foot with fat layer exposed (HCC); Type 2 diabetes mellitus with diabetic autonomic neuropathy, with long- term current use of insulin (HCC) Wound Care Debridement Timeout: Verbal Consent obtained?: Yes Written Consent obtained?: Yes Consent given by: Patient Immediately prior to procedure a time out was called to verify the correct patient, procedure, equipment, support service tech and site/side marked as required Timeout performed: 05/19/2019 1:15 PM Debridement Procedure: Debridement Performed for Assessment: Right plantar wound Performed by: Physician Debridement Type: Surgical Pain Control: N/A Level: Skin/Subcutaneous Tissue Post Debridement Measurements: Length (cm): 2 Width (cm): 1.5 Depth (cm): 0.1 Area (sq cm): 3 Volume (cm3): 0.3 Percent Debrided: 100 Total Area Debrided (sq cm): 3 Tissue and other material debrided: Subcutaneous Devitalized tissue debrided: Slough and Biofilm Instrument: Curette Bleeding: Moderate Hemostasis Achieved: Pressure Procedural Pain: Insensate Post Procedural Pain: Insensate Response to Treatment: Procedure was tolerated well * Alena Mora DPM - 05/19/2019 1:12 PM EDT HPI: Patient is a 58 y.o. male presents to the wound care center for follow-up evaluation and management to right foot plantar ulceration secondary to Charcot. He follows with Dr. Robles in the office. He has left midfoot ulceration that started after wearing surgical shoe following hammertoe surgery. States that he has been limiting his weightbearing, keeping his ulceration clean, and applying medihoney for dressing changes daily. Minimal drainage. Never smoker. DM x years. A1c 8.5%. Deniesfevers, chills, nausea, vomiting, chest pain, shortness of breath, or any other constitutional symptoms. Objective: Vascular: Peripheral pulses are palpable at 2 out of 4 for the right dorsalis pedis pulse, 2 out of4 for the left dorsalis pedis pulse, 2 out of 4 the right posterior tibial pulse, 2 out of 4 for the left posterior tibial pulse. CFT is less than 3 seconds bilaterally. Skin temperature is warm to warm proximal to distal bilaterally. Lower extremity edema Trace is observed to the bilateral lower extremities. Neurological: Epicritic sensation is grossly absent bilateral via light touch. Babinski test is plantigrade bilaterally. Achilles reflex is present bilateral. Patient is able to follow 2-step commands. No gross motor deficit appreciated at this time bilateral lower extremities. Dermatologic: Full-thickness ulceration noted to the plantar midfoot measuring 2.0 x 1.5 x 0.2 cm. The macerated border has resolved. Wound bed is granular. No periwound erythema, edema, drainage or any acute signs of infection. Musculoskeletal: Range of motion of the lower extremity at the ankle is diminished. Muscle strengthis 4/5 for all muscle groups. Charcot with rocker bottom right foot, plantargrade left foot Radiographs reviewed noting 1. Charcot foot with advanced deformity of the mid aspect of the right foot. 2. No obvious acute fracture is noted. 3. [id number] soft tissue swelling and other degenerative changes noted. Labs: Lab Results Component Value Date HGBA1C 8.5 (H) 01/20/2019 Lab Results Component Value Date WBC 4.61 01/20/2019 Assessment: Full-thickness plantar ulceration, right foot Charcot neuroarthropathy Diabetes type 2 with peripheral neuropathy Plan: Patient was examined and evaluated. Discussed the etiology of Charcot neuroarthropathy. Discussed with patient briefly on surgical options which would include application of circular static external fixator. We will discuss surgery in detail after obtaining MRI results. Debridement was performed today, see procedure note. At this time patient will continue betadine to wound macerated border, and meta honey to the wound bed. Patient is to limit weightbearing and to work on lowering his hemoglobin A1c with his PCP. 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 male presents to the wound care center for follow-up evaluation and management to right foot plantar ulceration secondary to Charcot. He has right midfoot ulceration that started after wearing surgical shoe following hammertoe surgery. States that he has been limiting his weightbearing, keeping his ulceration clean, and dry, while applying medihoney for dressing changes daily. Minimal drainage. Recently he developed some left leg ulceration. Has been applying medihoneyand keeping it clean. Never smoker. DM x years. Denies fevers, chills, nausea, vomiting, chest pain, shortness of breath, or any other constitutional symptoms. Objective: Vascular: Peripheral pulses are palpable at 2 out of 4 for the right dorsalis pedis pulse, 2 out of4 for the left dorsalis pedis pulse, 2 out of 4 the right posterior tibial pulse, 2 out of 4 for the left posterior tibial pulse. CFT is less than 3 seconds bilaterally. Skin temperature is warm to warm proximal to distal bilaterally. +1 pitting edema noted to bilateral lower extremities Neurological: Gross sensation is intact. Protective sensation is absent bilaterally. Dermatologic: Full-thickness ulceration noted to the plantar midfoot measuring 0.5 x0.5x 0.2 cm themacerated border has resolved. Wound bed is granular. No periwound erythema, edema, drainage or anyacute signs of infection. Wound does not probe to bone. No cellulitis or lymphangitis. Full thickness ulceration noted to the anterior left leg noted measuring 7.0 x 3.0 x 0.2. No periwound erythema,edema, drainage or any acute signs of infection. Musculoskeletal: Range of motion of the lower extremity at the ankle is diminished. Muscle strengthis 4/5 for all muscle groups. Charcot with rocker bottom right foot, plantargrade left foot Assessment: Full-thickness plantar ulceration, right foot - Stable Fulll-thickness ulceration, left leg Charcot neuroarthropathy Diabetes type 2 with peripheral neuropathy Venous insufficiency Plan: Patient was examined and evaluated. Right foot plantar wound is stable. No signs of infection Debridement was performed today, see procedure note. Regarding his left leg, explained to the patient that his ulceration is secondary to uncontrolled edema secondary to venous insufficiency. We will apply Kb and dry sterile dressing to the left lower extremity. Patient is to limit weightbearing and to work on lowering his hemoglobin A1c with his PCP. Tentative plans for surgery in the next few month pending medical clearance and preoperative testing Patient understands that he is at high risk for limb loss. Follow up in 2 weeks Alena Mora DPM Wound Care Debridement Timeout: Verbal Consent obtained?: Yes Written Consent obtained?: Yes Consent given by: Patient Immediately prior to procedure a time out was called to verify the correct patient, procedure, equipment, support service tech and site/side marked as required Debridement Procedure: Performed by: Physician Debridement Type: Surgical Pain Control: N/A Level: Skin/Subcutaneous Tissue Post Debridement Measurements: Length (cm): 0.5 Width (cm): 0.5 Depth (cm): 0.2 Area (sq cm): 0.25 Volume (cm3): 0.05 Percent Debrided: 100 Total Area Debrided (sq cm): 0.25 Tissue and other material debrided: Subcutaneous Devitalized tissue debrided: Biofilm Instrument: Curette Bleeding: Minimal Hemostasis Achieved: Pressure Procedural Pain: Insensate Post Procedural Pain: Insensate Response to Treatment: Procedure was tolerated well documented in this encounter* Alena Mora DPM - 08/24/2019 10:24 PM EST Associated Order(s): Wound Debridement Post-Procedure Diagnose(s): Foot ulcer with fat layer exposed, right (HCC) Wound Care Debridement Timeout: Verbal Consent obtained?: Yes Written Consent obtained?: Yes Consent given by: Patient Immediately prior to procedure a time out was called to verify the correct patient, procedure, equipment, support service tech and site/side marked as required Debridement Procedure: Debridement Performed for Assessment: Right foot Performed by: Physician Debridement Type: Surgical Pain Control: N/A Level: Skin/Subcutaneous Tissue Post Debridement Measurements: Length (cm): 1.5 Width (cm): 1 Depth (cm): 0.3 Area (sq cm): 1.5 Volume (cm3): 0.45 Percent Debrided: 100 Total Area Debrided (sq cm): 1.5 Tissue and other material debrided: Subcutaneous Devitalized tissue debrided: Biofilm, Slough and Fibrin Instrument: Curette Bleeding: Minimal Hemostasis Achieved: Pressure Procedural Pain: Insensate Post Procedural Pain: Insensate Response to Treatment: Procedure was tolerated well documented in this encounter* Alena Mora DPM - 01/19/2020 8:20 AM EDT Associated Order(s): Wound Debridement; Wound Debridement Post-Procedure Diagnose(s): Foot ulcer with fat layer exposed, right (HCC); Charcot's joint of right foot; Dehiscence of operative wound, subsequent encounter Subjective: Patient is a pleasant 59-year-old male who presents to the wound care center for his 6 weeks follow-up evaluation status post right midfoot wedge resection and application of external fixator for Charcot reconstruction (date of surgery 11/20/2019). Patient states that he has been doing well. He was recently discharged home from the rehab facility and continues to receive IV antibiotics via his PICC line, which is managed by Dr. Awad. Patient states that he has been nonweightbearing as instructed to the right lower extremity. He states that the nursing staff has been changing his dressing once every other day as instructed. No new pedal complaints.Denies fevers, chills, nausea, vomiting, [address] pain, shortness of breath, or any other constitutional symptoms. Objective: Vascular: DP and PT pulses are palpable 2/4. Cap refill time is brisk to distal digits. Skin temperature is warm to warm from proximal tibial tuberosity to distal digits. +1 pitting edema noted to the right foot. Neuro: Gross sensation is intact. Protective sensation is absent. Dermatologic: The right foot plantar surgical incision site is well coapted with exception of the central medial aspect where a dehiscence is noted measuring 3.0 x 0.8 x 0.5 cm. Minimal drainage noted. Wound is fibrogranular. It does not probe to bone. No erythema, edema, drainage, or any acute signs of infection.This area was swab cultured today. All pin sites are intact with no surrounding erythema, edema, drainage. The external fixation device is intact. No loosening of pins or wires noted. The previously noted blister on the distal tuft of the right great toe has a loose eschar measuring 0.3 x 0.3 x 0.2 cm. A partial thickness ulceration noted to right 3rd toe secondary to blister. No si gn of infection. Musculoskeletal: Patient is able to wiggle digits. Compartments are soft and compressible. No calf pain. Assessment: 8 weeks status post right midfoot wedge resection and application of external fixator for Charcot reconstruction (Date of surgery 11/20/2019 -Dr. Mora). Charcot arthropathy, midfoot, right foot Diabetes with peripheral neuropathy Hemorrhagic blister, right great toe --> deep tissue injury --> now with a loose eschar --> subcutaneous ulceration Dehiscence to central incision site --> down to subcutaneous layer Blister 3rd toe, right foot Plan: Patient was seen and evaluated. Discussed all clinical findings. Patient is doing well overall. The dehisced site was in need of debridement to removal all nonviable tissue, biofilm, callus. The wound bed was debrided down to and including subcutaneous tissue using a ring curette. No anesthesiasecondary to neuropathy. Hemostasis achieved with compression. See procedure note. Applied kb and dsd to wound site. The loose eschar site was in need of debridement to removal all nonviable tissue, biofilm, callus. The wound bed was debrided down to and including subcutaneous tissue using a ring curette. No anesthesia secondary to neuropathy. Hemostasis achieved with compression. See procedure note. Applied kb and dsd to wound sites. All pins were cleansed with alcohol and Betadine was applied to all pins at the skin interface. A 6 inch Zechariah bandage was then applied around the external fixator construct. Patient is to keep nonweightbearing to the right lower extremity at all times. He is to keep everything clean and dry. Nurses are to clean wires every other day with alcohol. In addition, Nurses to apply kb to dehisced central incision site plantar right foot and cover with 2 kerlix. All questions were answered to satisfaction. Patient is to return to clinic in 1 week for follow-up evaluation Alena Mora DPM Wound Care Debridement Timeout: Verbal Consent obtained?: Yes Written Consent obtained?: Yes Consent given by: Patient Immediately prior to procedure a time out was called to verify the correct patient, procedure, equipment, support service tech and site/side marked as required Debridement Procedure: Debridement Performed for Assessment: Right foot Performed by: Physician Debridement Type: Surgical Pain Control: N/A Level: Skin/Subcutaneous Tissue Post Debridement Measurements: Length (cm): 3 Width (cm): 0.8 Depth (cm): 0.5 Area (sq cm): 2.4 Volume (cm3): 1.2 Percent Debrided: 100 Total Area Debrided (sq cm): 2.4 Tissue and other material debrided: Subcutaneous Devitalized tissue debrided: Biofilm and Slough Instrument: Curette Bleeding: Minimal Hemostasis Achieved: Pressure Procedural Pain: Insensate Post Procedural Pain: Insensate Response to Treatment: Procedure was tolerated well Wound Care Debridement Timeout: Verbal Consent obtained?: Yes Written Consent obtained?: Yes Consent given by: Patient Immediately prior to procedure a time out was called to verify the correct patient, procedure, equipment, support service tech and site/side marked as required Debridement Procedure: Debridement Performed for Assessment: Right great toe Performed by: Physician Debridement Type: Surgical Pain Control: N/A Level: Skin/Subcutaneous Tissue Post Debridement Measurements: Length (cm): 0.3 Width (cm): 0.3 Depth (cm): 0.2 Area (sq cm): 0.09 Volume (cm3): 0.02 Percent Debrided: 100 Total Area Debrided (sq cm): 0.09 Tissue and other material debrided: Subcutaneous Devitalized tissue debrided: Biofilm and Slough Instrument: Curette Bleeding: Minimal Hemostasis Achieved: Pressure Procedural Pain: Insensate Post Procedural Pain: Insensate Response to Treatment: Procedure was tolerated well documented in this encounter* Maria Isabel Awad MD - 01/16/2021 10:48 AM EDT CONSULT NOTE 05/02/2020 Patient Name: Dyllan Huertas Admit Date: MR #: [id number] : 1960 Physicians: Rohit Aguilar MD (Family); No ref. 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 antibiotic Will need to watch very closely for any recurrence of infection and treat aggressively if indicatedin the future May 10 New blister of the right great toe Postop wound of the right ankle from surgery in May 01, 2020 May 24 Right foot postop wound is clean no drainage no cellulitis Enterobacter and gram-negative June 07 Postop wound is healed up Right great toe superficial ulceration no evidence of cellulitis right now Last CRP 7 and sed rate 37 #9 July Plantar foot wound is healed and stayed healed Toe ulcer is clean August 02, 2020 Right foot ulcer healed Right foot Charcot with hardware placed May 01, 2020 Right anterior leg area wound with trauma with a step no kali ulceration x-ray done by Dr. Archer was negative for any fracture Tiny blisters if at all any August 09 Right toe ulcer healed Right leg blisters healed Hardware right foot with right foot ulcer on long-term suppressive antibiotic treatment Right leg x-ray negative for fracture right foot x-ray with hardware and a fracture I would leave that up to Dr. Mora August 23 Right toe ulcers are clean Foot ulcer healed Postop wound healed up completely No redness noted Lab work done CRP was less than 2.9 sed rate 32 his glucose was 46 was addressed #4 September Right leg ulcers have healed Right foot wound has healed and stayed healed xray with continued healing but not complete October 18, 2019 Right foot s/p Charcot repair surgery right tibial fracture with hardware Intraoperative cultures normal chalino Original cultures October and November 2019 had Enterobacter which was adequately treated with IV antibiotics Patient doing very well on long-term suppressive antibiotic treatment in view of the prolonged ulcers that he had an multiple open wounds that he had which have finally healed stayed healed and has hardware which would be at risk of flareup of any infection and generally 1 year long-term suppressive treatment is given good results with complete fusion by then I discussed with Dr. Mora I reviewed the x-ray film done last and another films can be done today Last CRP less than 2.9 in August and last sed rate 32 January 16, 2021 Right foot osteomyelitis s/p Charcot surgery with hardware Removal cultures November 2019 Enterobacter and gram negatives Intraoperative cultures were normal chalino Patient was at high risk for limb loss BKA we went with aggressive IV antibiotic followed by suppressive oral antibiotic Wound is healed up completely last x-ray done at Dr. Mora's office yesterday shows progressive healing and fusion Per discussion no evidence of infection perihardware Sed rate is 30 CRP is less than 2.9 Insulin-dependent diabetic Recommend January 16, 2021 Doxycycline 100 mg p.o. once a day suppressive treatment April 2021 No further blood work needed at this point Patient is going to be getting a new brace At this point no further appointments needed with me follow-up with Dr. Mora and PMD If any assistance needed I will be happy to assist Patient filled the prescription yesterday I will ask him to get at least another refill to get up to April and end of April would be even better but if everything looks healed by April we can stop the antibiotics because his original treatment had started in NovemberOctober 18, 2020 Doxycycline 100 mg p.o. once a day till May 01 CBC CMP sed rate CRP to be done in about 3 months See me in the office in 3 months After April we will stop all the antibiotic watch him off antibiotics September 06 Doxycycline 100 g p.o. once a day till October 2020 I will see him in [address] Mora August 23 Doxycycline 100 g p.o. once a day till October 2020 He does have [address] Mora Return to see me in [address] Mora August 09 Doxycycline 100 mg p.o. per day till October 2020 Patient has one refill Return to see me in 2 weeks We'll order a CBC CMP sed rate CRP while he is on long-term suppressive treatment can be drawn at one of his next visits here put the order in the computer Dressing per Dr. Mora to the right great toe August 02 Doxycycline 100 g p.o. per day till October 2020 Right anterior leg area with tiny blisters I need to culture because he has hardware in the ankle we want to be very aggressive with any antibiotic management Consider Triad to the right anterior leg area I would leave it up to Dr. Mora Return to see me next week with Dr. Mora July 12 Doxycycline 100 g p.o. once a day suppressive treatment till October [address] Mora Culture the right toe today Readjust antibiotics if needed June 07 Doxycycline decreased to 100 mg p.o. per day We will go with suppressive treatment although wait till October 2020 which will be 6 months postopand if we need to go longer will go up to 1 year total Local dressings per Dr. Mora I will see him in [address] Mora I have discussed this with the patient as well as podiatry May 24 Doxycycline 100 g p.o. twice daily continue for now till June 18 After that we will cut it down to 1 tablet of doxycycline per day for long-term suppressive treatment may need to go up to November 03, 2020 to make it 6 months postop I looked at the films with Dr. Mora from last time Cast per Dr. Mora I will see him in 2 weeks X-ray per Dr. Mora today Labs will be done today here May 10 Cast was changed by podiatry today incision looks good without any evidence of secondary infection Doxycycline 100 mg p.o. twice a day continued for total of 1 month he has enough Revisit 2 weeks May 03 Discontinue the order for PICC line Discontinue IV cefepime P.o. doxycycline 100 mg twice daily for 30 days Follow-up in the wound clinic on Wednesdays with myself and Dr. Mora Any dressing orders will be per I have discussed with the patient as well as hospitalist May 02 PICC line placement Cefepime 2 g IV every 12 Follow-up current OR cultures however with the extent of infection he had before it would be prudent to give prolonged IV for now hardware would be at risk for infection CBC CMP sed rate CRP blood cultures x2 half an hour apart [employer] to be sent today I have discussed with the hospitalist Chief Complaint/Reason for Visit: I am seeing this patient at the request of Dr. Emilie MD. I have reviewed the current hospital record, available laboratory, cardiology and imaging studies as well as available out patient records. History of Present Illness: Admission H&P by Ramírez Damico CNP on 05/01/2020: Dyllan Huertas is a 60 y.o. male with history of IDDM and neuropathy presents for status post right ankle arthrodesis. Dr. Mora performed the procedure today. Patient laid on bed without complaint. Patient is afebrile, vitals are stable. Patient will be on antibiotics and continue home meds. 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 doxycycline suppressive treatment for Enterobacter cloaca infection he also received Rocephinat one point eventually on May 01, 2020 patient underwent extensive surgery to the 7-hour surgery by Dr. Mora which was right foot arthrodesis subtalar arthrodesis right ankle which is corrective surgery for his Charcot and infectious disease consult for further help with antibiotic management Past medical surgical social family history nobody with boils all his details of previous history is in the notes He was a long-term suppressive treatment with doxycycline He is a chronic Schulte catheter because of nonweightbearing He had done home IV antibiotics in the past The Enterobacter cloaca he was Penson Allergy Information: I have reviewed the patient's allergies. Patient has no known allergies. Current Scheduled Meds: PMH/PSH/SH/ reviewed, no change except: He is in the hospital receiving intravenous antibiotics May [address] Mora she said the approach she took for the surgery was a totally different area than the previous infected area intraoperatively she did not find any evidence of infection the bone was hard Intra-Op cultures were not done at this point based on her information we maynot need prolonged IV antibiotics at the midline order was discontinued and he would continue to maintain p.o. antibiotic to make sure skin soft tissue healing occurs and we will need to follow him in the wound clinic on a regular basis watch closely for any infection Patient also has his brother's today Denies any pain in the right ankle January 16, 2021 right foot Charcot with hardware surgery ulceration infection all treated aggressively with complete healing wound progresses diffuse per discussion Dr. Mora Review of Systems: All systems were reviewed and negative except: No fever chills nausea vomiting diarrhea Medications Reviewed. Chart Reviewed Physical Examination: Exam Findings: BP (!) 157/84 (BP Location: Right arm, Patient Position: Sitting, BP Cuff Size: Adult) Pulse 74 Temp 98.3 F (36.8 C) (Infrared) Ht 5' 11 Wt 113.9 kg (251 lb) SpO2 93% BMI 35.01 kg/m Constitutional: Awake alert answers all question HENT: Pupils reactive head: No oral candidiasis Eyes: No icterus Neck: Supple Cardiovascular: Heart S1-S2 2 by systolic murmur present no S3 Murmur Pulmonary/Chest: Clear Abdominal: Soft Musculoskeletal: No calf tenderness on the right leg he has an Zechariah bandage postop Neurological: Right great toe tip there is a blackish discoloration which will need to watch closely but he does have sensations difficult to move toes in his postop brace Skin no redness or cellulitis n prior to surgery by Dr. Abby Schulte: IV: other: He is now status post right ankle arthrodesis by Dr. Mora on 05/01/2020 postop Zechariah bandage in place is able to recall the toes some toes are not discolored they look normal September 06 right leg and right foot wound healed and stayed healed no more cellulitis October 18 2020 right foot operative wounds all healed up extensive reconstructive surgery with hardware right tibia and right foot right toe ulcer is healed up and stayed healed no evidence of cellulitis January 162020 right foot ulcer healed stayed healed right foot Charcot with hardware progressively healing very well is going to get a new brace no pain no redness no swelling noted I have personally reviewed the labs and results Test results Laboratory and Additional Data Reviewed: Date: 01/16/2021 Update from previous note Height: 5'11 Weight: 151 Temperature: 98.3 Pulse: 74 Blood Pressure: 157/84 SPO2%: 93% Current Antibiotics: Doxycycline 100 mg p.o. once a day till May 01, 2021 Previous Antibiotics: Maxipime 2 grams IV every 12 hours Doxycycline 100 mg PO daily until June 03, suppressive treatment Merrem 1,000 mg IV every 12 Hours Rocephin 2 gm IV every 24 Hours until 01/02/2020 Ancef 2,000 mg IV I have personally reviewed all labs and other results Labs and additional data reviewed: Labs: CBC 12/27/2020 12:58 WBC: 5.62 RBC: 4.12 Hemoglobin: 11.6 Hematocrit: 35.4 Platelets: 209 Lymphocytes Abs: 0.81 CMP 12/27/2020 12:58 Glucose: 53 BUN: 28 Creatinine: 1.31 Sodium: 144 Potassium: 4.4 Total Protein: 7.4 Albumin: 4.0 Alk Phos: 68 AST: 15 ALT: 18 Total Bilirubin: 0.3 Sed Rate 12/27/2020 12:58 30 CRP 12/27/2020 12:58 <2.9 PSA Screen 12/27/2020 12:58 0.04 TSH 12/27/2020 12:58 0.91 Recent Cultures: 08/02/2020 Right Leg, Aerobic Culture: Normal Chalino After 48 Hours. Final. 07/12/2020 Right Toe Wound Aerobic Culture: Normal Chalino After 48 Hours. Final. 05/02/2020 Urine Aerobic Culture: No Growth (<1,000 CFU/mL). Final. 12/28/2019 - Right Foot, Aerobic Culture: Normal Chalino After 48 Hours. Final. 12/21/2019 - Right Foot, Aerobic Culture: Normal Chalino After 48 hours. Final. 12/21/2019 - Right foot, anaerobic: No Anaerobic Growth at 2 Days. Final. 12/10/2019 Right Foot Wound Aerobic Culture: Normal Chalino After 48 Hours. Final 12/10/2019 Right foot wound, anaerobic culture: No Anaerobic Growth at 2 days. Final 12/08/2019 Urine Aerobic Culture: No Growth (<1,000 CFU/mL). Final. 12/07/2019 Urine Aerobic Culture on arrival to Nursing Rehab Unit: No Growth (<1,000 CFU/mL). Final. 12/02/2019 Right Foot Tissue Aerobic Culture: Normal Chalino After 48 Hours. Final. 12/02/2019 Right Foot Tissue AFB Culture: No Acid Fast Bacilli after 8 weeks. Final. 12/02/2019 Right Foot Tissue Anaerobic Culture: No Anaerobic Growth at 2 Days. Final. 12/02/2019 Right Foot Tissue Fungus Culture: No fungus isolated at 4 weeks. Final. 12/01/2019 Blood Culture #1: No Growth After 5 Days. Final. 12/01/2019 Blood Culture #2: No Growth After 5 Days. Final. 11/30/2019 Right Foot Wound Aerobic Culture: Normal Chalino After 48 Hours. Final. 11/21/2019 Left Leg Wound Aerobic Culture: Normal Chalino After 24 Hours. Final. 11/20/2019 Right Foot Tissue Aerobic Culture: Moderate Growth Enterobacter cloacae complex, S=Youssef Sensitive. Final. 11/20/2019 Right Foot Tissue Anaerobic Culture: No Anaerobic Growth at 2 Days. Final. 11/20/2019 Right Foot Bone Aerobic Culture: Light Growth Enterobacter Cloacae Complex, S=Youssef Sensitive. Final. 11/20/2019 Right Foot Bone Anaerobic Culture: No Anaerobic Growth at 2 Days. Final. 05/30/2019 Right Foot Tissue Aerobic Culture: Normal Chalino After 48 Hours. Final. 05/30/2019 Right Foot Tissue Anaerobic Culture: No Anaerobic Growth at 2 Days. Final. 03/23/2019 Right Foot Wound Aerobic Culture: Heavy Growth Raoultella Pl[place]ola, R=Ampicillin, S=Remainder of panel. 03/09/2019 Right Foot Wound Aerobic Culture: Normal Chalino After 48 Hours. Final. 02/09/2019 Right Foot Wound Aerobic Culture: Normal Chalino After 48 Hours. Final. 01/19/2019 Right Toe Two Wound Aerobic Culture: Heavy Growth Enterobacter Cloacae Complex, S=Youssef Sensitive. Final. Radiology: Right Tib/Fib/Foot X-Ray 10/18/2020 1. Prior tibial shaft fracture status post IM rodding. Interval progression of periosteal callus bridging this fracture. No change in alignment. 2. Prior tibiotalar and subtalar arthrodesis. No hardware complication in the hindfoot or in the tibiotalar joint. 3. Prior Lisfranc fracture deformity in the midfoot and forefoot regions, unchanged in appearance from prior x-ray. 4. Probable Charcot changes involving the midfoot particularly medial and lateral cuneiforms Right Tib/fib X-Ray 09/06/2021 Progressive healing of fracture at the junction of the middle and distal one- third of the right tibia, which is again noted to be immobilized by a [id number] tibial medullary tommy. Stable resection changes distal articular aspect of the fibula. Date: 10/18/2020 New labs/ results as of last note: 09/06/2021 I have personally reviewed all labs and other results Labs and additional data reviewed: 09/06/2021 X-Ray Right tib/fib FINDINGS: The 2-view study of the right leg shows progressive healing at the tibial shaft fracture site located at the [id number] one-third tibia. The fracture is crossed by a oqcoqc-wy-krbornch tibial medullary tommy, with a locking screw seen near the mid shaft level of the tibia. Proximal tibia and fibula appeared satisfactory. Surgical resection of the distal fibula redemonstrated. IMPRESSION: Progressive healing of fracture at the junction of the middle and distal one- third of the right tibia, which is again noted to be immobilized by a dqkcjr-vs-[id number] tibial medullary tommy. Stable resection changes distal articular aspect of the fibula. Current culture: 08/02/2020 Right leg, aerobic culture: Normal chalino after 48 hours. Current Antibiotics: Doxycycline 100 mg po daily through Oct, 2020. Previous Antibiotics: Maxipime 2 grams IV every 12 hours Doxycycline 100 mg PO daily until June 03, suppressive treatment Merrem 1,000 mg IV every 12 Hours Rocephin 2 gm IV every 24 Hours until 01/02/2020 Ancef 2,000 mg IV Dressings: Right great toe: tubigrip, zechariah. Date: 09/06/2020 No new labs/ results as of last note: 08/23/2020 Update from previous note 08/23/2020 X-Ray Right tib/fib FINDINGS: AP and lateral views of right lower leg obtained. There is a stable tibiotalocalcaneal fixation rodfixated in the mid tibial diaphysis with transverse screw and calcaneus with a longitudinal calcaneal pin. This bridges a distal tibial transverse fracture. There are increasing small amounts of perio steal calcification with subtle signs of rigid bony fusion in a few locations. Fracture plane remains visible. There is a cortical screw also fusing the ankle joint positioned more medially also appear grossly intact. The distal fibula has been resected. The tarsal bones are not visualized or collapsed yet unchanged in appearance. IMPRESSION: 1. Partial healing of distal tibial transverse fracture without definitive signs of rigid bony fusion. 2. Grossly intact ankle joint fusion hardware as described. 3. Unchanged tarsal bone configuration. Current culture: 08/02/2020 Right leg, aerobic culture: Normal chalino after 48 hours. Current Antibiotics: Doxycycline 100 mg po daily through 10/2020 Previous Antibiotics: Maxipime 2 grams IV every 12 hours Doxycycline 100 mg PO daily until June 03, suppressive treatment Merrem 1,000 mg IV every 12 Hours Rocephin 2 gm IV every 24 Hours until 01/02/2020 Ancef 2,000 mg IV Dressings: Right great toe: Kb, DSD per Dr. Mora Right lower leg: Cast per Dr. Mora Date: 08/23/2020 New labs/ results as of last note: 08/09/2020 Last WBC 6.14 on 11 6 Hemoglobin 11.2 hematocrit 35.1 platelet count 230 BUN 20 creatinine 1.09 sed rate 32 CRP less than 2.9 08/09/2020 X-Ray right tib/fib FINDINGS: Two views of the right tibia and fibula were obtained. There is redemonstration of transverse fracture in the distal tibial diaphysis status post placement retrograde intramedullary nail with calcaneal and interlocking screws in place. Fracture line remains visible without bridging callus formation. Postsurgical findings of distal fibular resection and cannulated ankle and subtalar joint screw are again noted. Soft tissue edema is noted around the leg and ankle., IMPRESSION: Redemonstration of distal tibial diaphysis fracture, status post ORIF without change in alignment or bridging callus formation. Additional postsurgical findings in the ankle and hindfoot with soft tissue edema. Update from previous note Current culture: 08/02/2020 Right leg, aerobic culture: Normal chalino after 48 hours. Current Antibiotics: Doxycycline 100 mg po Daily through 10/2020 Previous Antibiotics: Maxipime 2 grams IV every 12 hours Doxycycline 100 mg PO daily until June 03, suppressive treatment Merrem 1,000 mg IV every 12 Hours Rocephin 2 gm IV every 24 Hours until 01/02/2020 Ancef 2,000 mg IV Dressings: Right leg: Below the knee cast per Dr. Mora Date: 08/09/2020 New labs/ results as of last note: 08/02/2020 I have personally reviewed all labs and other results. Labs and additional results reviewed: 08/02/2020 X-ray right tib/fib FINDINGS: Intramedullary tommy is noted in the tibial shaft. Additional screws and pins are noted in hindfoot. The hardware appears intact. Resection of the distal fibula is again noted. There is the transverse fracture through the distal tibial shaft that is new from the prior study. IMPRESSION: New acute fractures in the distal tibial shaft. 08/02/2020 X-ray right ankle FINDINGS: RIGHT TIBIA FIBULA: Retrograde intramedullary tommy through the calcaneus, talus extending to the mid tibia with a singleproximal tibial screw redemonstrated. Separate retrograde orthopedic screw extending through the calcaneus, talus and to the distal tibia. There is a new acute transverse fracture involving the bxv-[id number] diaphyseal shaft of the tibia surrounding the intact intramedullary tommy. Additional lag screw through the calcaneus. Resection of the distal fibula redemonstrated. Some mild generalized soft tissue edema. RIGHT ANKLE: Orthopedic changes about the proximal foot redemonstrated as described above. Severe degenerative changes of the visualized midfoot. Prominent inferior and moderate superior calcaneal spur redemonstrated. Some bony fragmentation along the lateral aspect of the ankle and some ossification along the plantar fascial region redemonstrated. Soft tissue edema about the ankle. IMPRESSION: 1. New acute transverse fracture involving the distal diaphyseal shaft is in good alignment and surrounds an intact retrograde intramedullary tommy extending through the calcaneus, talus into the mid tibial region with a single proximal tibial screw. 2. Stable orthopedic fixation of the ankle as described above. 3. Prior resection of the distal fibula redemonstrated. 4. Some mild soft tissue edema of the lower extremity including the ankle. GJT/ges Update from previous note Current culture: 08/02/2020 Right leg, aerobic culture: Normal chalino after 48 hours. Current Antibiotics: Doxycycline 100 mg po Daily through 10/2020 Previous Antibiotics: Maxipime 2 grams IV every 12 hours Doxycycline 100 mg PO daily until June 03, suppressive treatment Merrem 1,000 mg IV every 12 Hours Rocephin 2 gm IV every 24 Hours until 01/02/2020 Ancef 2,000 mg IV Dressings: Right leg: Cellerate and bacitracin Right great toe: Kb Date: 08/02/2020 No new labs/ results as of last note: 07/12/2020 X-rays right leg taken 07/24/[address] Archer's [place] office. Per patient, Dr. Archer told him Update from previous note Current Antibiotics: Doxycycline 100 mg po Daily through 10/2020 Previous Antibiotics: Maxipime 2 grams IV every 12 hours Doxycycline 100 mg PO daily until June 03, suppressive treatment Merrem 1,000 mg IV every 12 Hours Rocephin 2 gm IV every 24 Hours until 01/02/2020 Ancef 2,000 mg IV Current culture: 07/12/2020 Right great toe, aerobic culture: Normal chalino after 48 hours. Dressings: Right great toe: Kb Right leg: Luis Alberto, zechariah. Date: 06/07/2020 New labs/ results as of last note: 05/24/2020 Labs and other data reviewed: CBC Auto Differential Component Ref Range & Units 12d ago (05/24/20) 1mo ago (05/03/20) 1mo ago (05/02/20) 1mo ago (05/01/20) 1mo ago (04/26/20) 3mo ago (02/09/20) 5mo ago (12/28/19) WBC 4.50 - 11.00 K/mcL 4.09Low 6.78 8.37 6.59 6.01 4.66 RBC 4.50 - 5.90 M/mcL 3.80Low 3.46Low 3.58Low 4.91 4.53 4.42Low Hemoglobin 13.5 - 17.5 g/dL 10.8Low 9.8Low 10.3Low 12.6Low 14.0 12.1Low 11.6Low Hematocrit 41.0 - 53.0 % 32.4Low 30.0Low 30.8Low 37.8Low 42.4 38.2Low 38.0Low MCV 80.0 - 100.0 fL 85.3 86.7 86.0 86.4 84.3 86.0 MCH 26.0 - 34.0 pg 28.4 28.3 28.8 28.5 26.7 26.2 MCHC 31.0 - 37.0 g/dL 33.3 32.7 33.4 33.0 31.7 30.5Low Platelets 150 - 400 K/mcL 169 139Low 163 230 196 182 Comprehensive Metabolic Panel Component Ref Range & Units 12d ago (05/24/20) 1mo ago (05/03/20) 1mo ago (05/02/20) 1mo ago (05/01/20) 3mo ago (02/09/20) 5mo ago (12/28/19) 5mo ago (12/18/19) Sodium 135 - 145 mmol/L 141 138 140 142 142 142 142 Potassium 3.5 - 5.1 mmol/L 4.2 4.3 5.1 4.4 4.3 4.3 4.5 Chloride 98 - 108 mmol/L 110High 106 106 110High 109High 109High 106 Bicarbonate 21 - 32 mmol/L 26 27 28 27 28 31 25 Anion Gap 10 - 20 mmol/L 9Low 9Low 11 9Low 9Low 6Low 16 Glucose 65 - 99 mg/dL 171High 157High 262High 114High 205High 135High 82 BUN 8 - 25 mg/dL 17 29High 22 16 22 18 23 Creatinine 0.50 - 1.30 mg/dL 0.84 1.42High 1.51High 0.94 0.94 0.71 1.04 eGFR >=60 mL/min/1.73 m2 97 54Low 51Low 90 90 104 79 BUN/Creatinine Ratio 10.0 - 20.0 20.2High 20.4High 14.6 17.0 23.4High 25.4High 22.1High Total Protein 6.0 - 8.0 g/dL 6.6 6.3 6.9 7.0 7.2 Albumin 3.2 - 5.2 g/dL 3.2 3.0Low 3.5 3.1Low 3.0Low Calcium 8.4 - 10.2 mg/dL 9.3 8.1Low 8.3Low 9.1 9.2 9.2 9.6 Alkaline Phosphatase 40 - 150 U/L 95 52 72 93 94 AST 0 - 45 U/L 14 11 14 16 20 Total Bilirubin 0.0 - 1.3 mg/dL 0.3 0.3 0.3 0.4 0.3 ALT 14 - 65 U/L 21 11Low 19 19 27 CRP, Inflammation Component Ref Range & Units 12d ago (05/24/20) 1mo ago (05/03/20) 3mo ago (02/09/20) 5mo ago (12/28/19) 5mo ago (12/18/19) 5mo ago (12/12/19) 6mo ago (12/05/19) CRP(Inflammation) <=10.0 mg/L 7.0 92.3High 5.7 6.4 18.7High 52.4High 85.3High Sedimentation Rate Order: [id number] Status: Final result Visible to patient: No (not released) Next appt: 06/07/2020 at 08:30 AM in Wound Care (Maria Isabel Awad MD) Dx: Elevated C-reactive protein (CRP); El... Component Ref Range & Units 12d ago (05/24/20) 1mo ago (05/03/20) 1mo ago (04/26/20) 3mo ago (02/09/20) 5mo ago (12/28/19) 5mo ago (12/18/19) 5mo ago (12/12/19) Sed Rate 0 - 20 mm/hr 36High 45High 23High 24High 33High 72High 91High 05/24/2020 X-Ray Right ankle IMPRESSION: Postsurgical changes without acute osseous abnormality. 05/24/2020 X-Ray Right Foot IMPRESSION: Postsurgical changes without acute osseous abnormality. Update from previous note Current Antibiotics: Doxycycline 100 mg PO BID through 06/18/2020, then one tablet daily for 6 months. Previous Antibiotics: Maxipime 2 grams IV every 12 hours Doxycycline 100 mg PO daily until June 03, suppressive treatment Merrem 1,000 mg IV every 12 Hours Rocephin 2 gm IV every 24 Hours until 01/02/2020 Ancef 2,000 mg IV Update from previous note Current Cultures: 05/02/2020 Urine Aerobic Culture: No Growth. Final. 05/02/2020 Blood Culture #2: In Progress; No Growth after 5 days. Final. 05/02/2020 Blood Culture #1: In Progress; No Growth after 5 days. Final. Dressings: per Dr. Mora Right great toe: Betadine, DSD Right lower extremity: Cast Date: 05/24/2020 No new labs/ results as of last note: 05/10/2020 Update from previous note Current Antibiotics: Doxycycline 100 mg PO BID. Last day 06/02/2020. Previous Antibiotics: Maxipime 2 grams IV every 12 hours Doxycycline 100 mg PO daily until June 03, suppressive treatment Merrem 1,000 mg IV every 12 Hours Rocephin 2 gm IV every 24 Hours until 01/02/2020 Ancef 2,000 mg IV Update from previous note Current Cultures: 05/02/2020 Urine Aerobic Culture: No Growth. Final. 05/02/2020 Blood Culture #2: In Progress; No Growth after 5 days. Final. 05/02/2020 Blood Culture #1: In Progress; No Growth after 5 days. Final. Dressing: Per Dr. Mora Date: 05/10/2020 No new labs/ results as of last note: 05/03/2020 Current Antibiotics: Doxycycline 100 mg PO BID Previous Antibiotics: Maxipime 2 grams IV every 12 hours Doxycycline 100 mg PO daily until June 03, suppressive treatment Merrem 1,000 mg IV every 12 Hours Rocephin 2 gm IV every 24 Hours until 01/02/2020 Ancef 2,000 mg IV Update from previous note Current Cultures: 05/02/2020 Urine Aerobic Culture: No Growth. Final. 05/02/2020 Blood Culture #2: In Progress; No Growth after 5 days. Final. 05/02/2020 Blood Culture #1: In Progress; No Growth after 5 days. Final. Dressing: Per Dr. Mora Date: 05/03/2020 New labs/results as of last note Update from previous note Tmax: 98.8 Urine Output: 700 Stool: not recorded Current Antibiotics: Maxipime 2 gm IV every 12 Hours Previous Antibiotics: Doxycycline 100 mg PO daily until June 03, suppressive treatment Merrem 1,000 mg IV every 12 Hours Rocephin 2 gm IV every 24 Hours until 01/02/2020 Ancef 2,000 mg IV I have personally reviewed the labs and results Test results Laboratory and Additional Data Reviewed: Labs: CBC 05/03/2020 03:54 WBC: 6.78 RBC: 3.46 Hgb: 9.8 Hct: 30.0 Platelets: 139 Lymphocytes Abs: 0.89 Monocytes Abs: 0.91 CMP 05/03/2020 03:54 Glucose: 157 BUN: 29 Creatinine: 1.42 Sodium: 138 Potassium: 4.3 Total Protein: 6.3 Albumin: 3.0 Calcium: 8.1 Alk Phos: 52 AST: 11 ALT: 11 Total Bilirubin: 0.3 CRP 05/03/2020 03:54 92.3 Sed Rate 05/03/2020 03:54 45 U/A 05/02/2020 18:46 Clarity: Cloudy Specific [place]: 1.031 Protein: 100 Ketones: Trace Blood: Small Leukocyte Esterase: Large WBCS: 84 RBCS: 16 Bacteria: Many WBC Clumps: Many Hyaline Casts: 11-20 Amorphous Crystals: Few Mucus: Rare Current Cultures: 05/02/2020 Urine Aerobic Culture: No Growth, Incubation Continued. Preliminary. 05/02/2020 Blood Culture #2: In Progress; No Growth to Date. Preliminary. 05/02/2020 Blood Culture #1: In Progress; No Growth to Date. Preliminary. 04/28/2020 COVID-19, Molecular SARS-CoV-2 RNA: Not Detected. Final. Radiology: Right Ankle X-Ray 05/02/2020 FINDINGS: Fourteen spot fluoroscopic images were obtained in the operating room. Fluoroscopic technique limits osseous and soft tissue detail. Images demonstrate hindfoot and ankle joint arthrodesis with tibial intramedullary tommy extending through the calcaneus and talus. An additional cannulated lag screw is present on the final images, and a transcalcaneal fixation hardware is present. There is a proximal interlocking screw. A distal fibular osteotomy is present. Alignment appears anatomic. IMPRESSION: Spot fluoroscopic images obtained during right ankle arthrodesis. Please see dictated operative report for full details. Chest X-Ray 04/26/2020 ORDERED Current antibiotic received preop Ancef Previous Antibiotics: Doxycycline 100 mg PO daily until June 03, suppressive treatment Merrem 1,000 mg IV every 12 Hours Rocephin 2 gm IV every 24 Hours until 01/02/2020 Ancef 2,000 mg IV Invalid input(s): CO2 Current Cultures: 04/28/2020 COVID-19, Molecular SARS-CoV-2 RNA: Not Detected. Final. Recent Cultures: 12/28/2019 - Right foot, aerobic culture: Normal Chalino after 48 hours. 12/21/2019 - Right foot, aerobic - normal chalino after 48 hours 12/21/2019 - Right foot, anaerobic: No anaerobic growth at 2 days. 12/10/2019 Right Foot Wound Aerobic Culture: Normal Chalino After 48 Hours. Final 12/10/2019 Right foot wound, anaerobic culture: No anaerobic growth at 2 days. Final 12/08/2019 Urine Aerobic Culture: No Growth (<1,000 CFU/mL). Final. 12/07/2019 Urine Aerobic Culture on arrival to Nursing Rehab Unit: No Growth (<1,000 CFU/mL). Final. 12/02/2019 Right Foot Tissue Aerobic Culture: Normal Chalino After 48 Hours. Final. 12/02/2019 Right Foot Tissue AFB Culture: No Acid Fast Bacilli after 8 weeks. Final. 12/02/2019 Right Foot Tissue Anaerobic Culture: No Anaerobic Growth at 2 Days. Final. 12/02/2019 Right Foot Tissue Fungus Culture: No fungus isolated at 4 weeks. Final. 12/01/2019 Blood Culture #1: No Growth After 5 Days. Final. 12/01/2019 Blood Culture #2: No Growth After 5 Days. Final. 11/30/2019 Right Foot Wound Aerobic Culture: Normal Chalino After 48 Hours. Final. 11/21/2019 Left Leg Wound Aerobic Culture: Normal Chalino After 24 Hours. Final. 11/20/2019 Right Foot Tissue Aerobic Culture: Moderate Growth Enterobacter cloacae complex, S=Youssef Sensitive. Final. 11/20/2019 Right Foot Tissue Anaerobic Culture: No Anaerobic Growth at 2 Days. Final. 11/20/2019 Right Foot Bone Aerobic Culture: Light Growth Enterobacter Cloacae Complex, S=Youssef Sensitive. Final. 11/20/2019 Right Foot Bone Anaerobic Culture: No Anaerobic Growth at 2 Days. Final. 05/30/2019 Right Foot Tissue Aerobic Culture: Normal Chalino After 48 Hours. Final. 05/30/2019 Right Foot Tissue Anaerobic Culture: No Anaerobic Growth at 2 Days. Final. 03/23/2019 Right Foot Wound Aerobic Culture: Heavy Growth Raoultella Planticola, R=Ampicillin, S=Remainder of panel. 03/09/2019 Right Foot Wound Aerobic Culture: Normal Chalino After 48 Hours. Final. 02/09/2019 Right Foot Wound Aerobic Culture: Normal Chalino After 48 Hours. Final. 01/19/2019 Right Toe Two Wound Aerobic Culture: Heavy Growth Enterobacter Cloacae Complex, S=Youssef Sensitive. Final. Radiology: Right Ankle X-Ray 05/02/2020 ORDERED Right Tib/Fib X-Ray 05/01/2020 1. Fusion of the tibia, talus, and calcaneus. Alignment is anatomic. There has been resection of the lateral malleolus. Right Ankle X-Ray 05/01/2020 FINDINGS: Images are obtained with the right ankle in a splint which obscures bony detail. There is interval resection of the distal right fibula. Internal fixation of the right ankle is seen with intramedullary tommy seen in the right tibia traversing the tibiotalar joint. Additional smaller surgical screw isseen traversing the tibiotalar joint. Internal fixation of the calcaneus is also seen with metallic tommy. Ankle and calcaneal fractures demonstrate normal alignment. Large plantar calcaneal spur is seen. Advanced degenerative changes are seen about the mid foot. Mild diffuse bony demineralization isseen. IMPRESSION: Images are obtained with the right ankle with in a splint which obscures bony detail. Postsurgical changes are seen, as detailed above with normal alignment. Right Tib/Fib X-Ray 05/01/2020 Status post removal of the external fixator with no acute osseous abnormality in the right tibia orfibula or right ankle. Right Foot X-Ray 05/01/2020 1. Prior external fixator replacement. Extensive deformity in the midfoot related to prior surgicalresection or Charcot changes. Continued subluxation between talus and navicular. 2. 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 Chest X-Ray 04/26/2020 ORDERED Right Foot X-Ray 11/20/2019 IMPRESSION: Intraoperative fluoroscopy for localization during right foot and ankle reconstruction and fixation. Please see operative report for details. Left Ankle X-Ray Ordered 11/20/2019 Right Tib/Fib,Right Foot X-Ray 02/16/2020 FINDINGS: There is extensive hardware from an external fixator present. This obscures fine bony detail.A single percutaneous pin is seen entering the plantar aspect of the foot through the calcaneus, talus, and entering the distal tibia. A 2nd slightly larger metallic tommy is seen entering the posterior calcaneus extending into the talus. Degenerative changes are present in the midfoot. There is soft tissue edema. IMPRESSION: Study is limited due to overlying external fixator. No significant change in alignment. NM White Cell Scan Spot Limited 03/08/2017 FINDINGS: A focal area of intense abnormal white blood cell migration is noted central plantar aspect of the right foot corresponding to the area of the wound demonstrated radiographically. No other focus of white blood cell migration abnormality is evident within the right or left foot. IMPRESSION: Focal area of abnormal white blood cell migration at the plantar aspect central right foot may be at the wound itself or may be involving the bone with associated fracture as demonstrated radiographically. Anatomic detail is insufficient for differentiation between the two. Renal U/S 03/07/2017 IMPRESSION: Severe thickening of the urinary bladder wall. This could be due to outlet obstruction with hypertrophy of the wall. If there is no such history, this should be evaluated with cystoscopy. CVPS: Lower Arterial Doppler: not on file Lower Venous Doppler: not on file 2D Echo 11/23/2019 Moderate LV enlargement with LVH. Global systolic dysfunction with segmental features. LVEF 30% Elevated LV filling pressures RV is dilated with severe RV dysfunction Mild mitral annular calcification, mild thickening of the aortic valve without hemodynamically significant valvular disease There is a atrial level right to left shunt identified with saline contrast with free breathing andValsalva most likely via PFO LVEF unchanged from to previous echo from 2017 Surgeries: Please see above for surgical history Procedure: RIGHT ANKLE ARTHRODESIS, SUBTALAR ARTHRODESIS RIGHT ANKLE, Bone [place] Graft From RightFibula, Application of Splint Date: 05/01/2020 Alena Mora DPM Procedure: RIGHT FOOT RECONSTRUCTION WITH APPLICATION OF CIRCULAR STATIC EXTERNAL FIXATION Date: 11/20/2019 Surgeon: Alena Mora DPM Procedure: ARTHROPLASTY 2ND TOE RIGHT FOOT Date: 01/25/2019 Surgeon: Rosa M Robles DPM Pathology: 12/02/2019 A. Soft tissue, Right Foot, excision: Non-specific ulcer. * Helena Glass LPN - 01/16/2021 10:30 AM EDT Date: 01/16/2021 Update from previous note Height: 5'11 Weight: 151 Temperature: 98.3 Pulse: 74 Blood Pressure: 157/84 SPO2%: 93% Current Antibiotics: Doxycycline 100 mg p.o. once a day till May 01, 2021 Previous Antibiotics: Maxipime 2 grams IV every 12 hours Doxycycline 100 mg PO daily until June 03, suppressive treatment Merrem 1,000 mg IV every 12 Hours Rocephin 2 gm IV every 24 Hours until 01/02/2020 Ancef 2,000 mg IV I have personally reviewed all labs and other results Labs and additional data reviewed: Labs: CBC 12/27/2020 12:58 WBC: 5.62 RBC: 4.12 Hemoglobin: 11.6 Hematocrit: 35.4 Platelets: 209 Lymphocytes Abs: 0.81 CMP 12/27/2020 12:58 Glucose: 53 BUN: 28 Creatinine: 1.31 Sodium: 144 Potassium: 4.4 Total Protein: 7.4 Albumin: 4.0 Alk Phos: 68 AST: 15 ALT: 18 Total Bilirubin: 0.3 Sed Rate 12/27/2020 12:58 30 CRP 12/27/2020 12:58 <2.9 PSA Screen 12/27/2020 12:58 0.04 TSH 12/27/2020 12:58 0.91 Recent Cultures: 08/02/2020 Right Leg, Aerobic Culture: Normal Chalino After 48 Hours. Final. 07/12/2020 Right Toe Wound Aerobic Culture: Normal Chalino After 48 Hours. Final. 05/02/2020 Urine Aerobic Culture: No Growth (<1,000 CFU/mL). Final. 12/28/2019 - Right Foot, Aerobic Culture: Normal Chalino After 48 Hours. Final. 12/21/2019 - Right Foot, Aerobic Culture: Normal Chalino After 48 hours. Final. 12/21/2019 - Right foot, anaerobic: No Anaerobic Growth at 2 Days. Final. 12/10/2019 Right Foot Wound Aerobic Culture: Normal Chalino After 48 Hours. Final 12/10/2019 Right foot wound, anaerobic culture: No Anaerobic Growth at 2 days. Final 12/08/2019 Urine Aerobic Culture: No Growth (<1,000 CFU/mL). Final. 12/07/2019 Urine Aerobic Culture on arrival to Nursing Rehab Unit: No Growth (<1,000 CFU/mL). Final. 12/02/2019 Right Foot Tissue Aerobic Culture: Normal Chalino After 48 Hours. Final. 12/02/2019 Right Foot Tissue AFB Culture: No Acid Fast Bacilli after 8 weeks. Final. 12/02/2019 Right Foot Tissue Anaerobic Culture: No Anaerobic Growth at 2 Days. Final. 12/02/2019 Right Foot Tissue Fungus Culture: No fungus isolated at 4 weeks. Final. 12/01/2019 Blood Culture #1: No Growth After 5 Days. Final. 12/01/2019 Blood Culture #2: No Growth After 5 Days. Final. 11/30/2019 Right Foot Wound Aerobic Culture: Normal Chalino After 48 Hours. Final. 11/21/2019 Left Leg Wound Aerobic Culture: Normal Chalino After 24 Hours. Final. 11/20/2019 Right Foot Tissue Aerobic Culture: Moderate Growth Enterobacter cloacae complex, S=Youssef Sensitive. Final. 11/20/2019 Right Foot Tissue Anaerobic Culture: No Anaerobic Growth at 2 Days. Final. 11/20/2019 Right Foot Bone Aerobic Culture: Light Growth Enterobacter Cloacae Complex, S=Youssef Sensitive. Final. 11/20/2019 Right Foot Bone Anaerobic Culture: No Anaerobic Growth at 2 Days. Final. 05/30/2019 Right Foot Tissue Aerobic Culture: Normal Chalino After 48 Hours. Final. 05/30/2019 Right Foot Tissue Anaerobic Culture: No Anaerobic Growth at 2 Days. Final. 03/23/2019 Right Foot Wound Aerobic Culture: Heavy Growth Raoultella Planticola, R=Ampicillin, S=Remainder of panel. 03/09/2019 Right Foot Wound Aerobic Culture: Normal Chalino After 48 Hours. Final. 02/09/2019 Right Foot Wound Aerobic Culture: Normal Chalino After 48 Hours. Final. 01/19/2019 Right Toe Two Wound Aerobic Culture: Heavy Growth Enterobacter Cloacae Complex, S=Youssef Sensitive. Final. Radiology: Right Tib/Fib/Foot X-Ray 10/18/2020 1. Prior tibial shaft fracture status post IM rodding. Interval progression of periosteal callus bridging this fracture. No change in alignment. 2. Prior tibiotalar and subtalar arthrodesis. No hardware complication in the hindfoot or in the tibiotalar joint. 3. Prior Lisfranc fracture deformity in the midfoot and forefoot regions, unchanged in appearance from prior x-ray. 4. Probable Charcot changes involving the midfoot particularly medial and lateral cuneiforms Right Tib/fib X-Ray 09/06/2021 Progressive healing of fracture at the junction of the middle and distal one- third of the right tibia, which is again noted to be immobilized by a [id number] tibial medullary tommy. Stable resection changes distal articular aspect of the fibula. documented in this encounter Reason for Referral Status Reason Specialty Diagnoses / Procedures Referred By Contact Referred To Contact Pending Review Radiology Diagnoses 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) Foot ulcer with fat layer exposed, right (HCC) Procedures MR Foot Right Without Contrast Nupur Davis DPM [address] [place] [address] Status Reason Specialty Diagnoses / Procedures Referred By Contact Referred To Contact Pending Review Patient Preference Rehabilitation Diagnoses Cellulitis of right foot Boogie Phan MD [address] [place] [address] Status Reason Specialty Diagnoses / Procedures Referred By Contact Referred To Contact Pending Review Patient Preference Home Health Services Diagnoses 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) Foot ulcer with fat layer exposed, right (HCC) Subacute osteomyelitis of right ankle (HCC) Helena Sheldon CNP [address] [place] [address] Status Reason Specialty Diagnoses / Procedures Referred By Contact Referred To Contact Pending Review Specialty Services Required/Patie nt's Best Interest Rehabilitation Diagnoses 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) Alisa Singh MD [address] [place] [address] Status Reason Specialty Diagnoses / Procedures Referre d By Contact Referred To Contact Closed Radiology Diagnoses Right foot ulcer, limited to breakdown of skin (HCC) Chronic osteomyelitis with draining sinus, right ankle and foot (HCC) Acquired hammer toe of right foot Procedures MR Foot Right Without Contrast Rosa M Robles, DPM [address] [place] [id number] Specialty Diagnoses / Procedures Referred By Contac t Referred To Contact Wound Care Diagnoses Chronic ulcer of right leg with fat layer exposed (HCC) Alena Mora, DPM [address] [place] [id number] Alena Mora, DPM [address] [place] [id number] Referral ID Status Reason Start Date Expiration Date V isits Requested Visits Authorized [id number] Pending Review 06/09/2024 06/09/2025 1 1 Specialty Diagnoses / Procedures Referred By Contac t Referred To Contact Cardiology Diagnoses Leg swelling Heart failure due to high blood pressure (Multi) Procedures Transthoracic Echo (TTE) Complete WI ECHO TTHRC R-T 2D W/WOM-MODE COMPL SPEC&COLR D Jace Reeder L, DO [address] [facility] [place] [address] Referral ID Status Reason Start Date Expiration Date Visits Requested Visits Authorized [id number] Pending Review Perform Procedure 06/21/2024 06/21/2025 1 1 Hospital Course * Man Crews MD - 12/06/2019 1:57 PM EST HOSPITALIST DISCHARGE SUMMARY Patient: Dyllan Huertas Account: [id number] Admitted: 11/30/2019 Discharge Date/Time: 12/06/2019 Clinical Summary FINAL DIAGNOSIS: Principal Problem: Subacute osteomyelitis of right ankle (HCC) Active Problems: 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) Foot ulcer with fat layer exposed, right (HCC) Morbid obesity (HCC) JAYDEN (obstructive sleep apnea) Mixed hyperlipidemia REASON FOR HOSPITALIZATION AND ADMITTING DIAGNOSIS: Right plantar foot infection & surgical revision HOSPITAL COURSE: Dyllan Huertas 59 y.o. male Principal Problem: Subacute osteomyelitis of right ankle (HCC) Active Problems: 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) Foot ulcer with fat layer exposed, right (HCC) Morbid obesity (HCC) JAYDEN (obstructive sleep apnea) Mixed hyperlipidemia PLAN: Pod#1 s/p debridement rt ankle, drain placed No fever On IV rocephin per ID team. Inadequate glycemic control , will change lantus to 30u bid and ISS 3/ -- SEEN AND EXAMINED -- DISCUSSED WITH NURSING STAFF -- CLINICALLY STABLE -- S/ DEBRIDEMENT RIGHT ANKLE -- NO FEVER -- NO LEUKOCYTOSIS -- BLOOD CULTURE IS NEGATIVE -- WOUND CULTURE IS NEGATIVE -- PODIATRY IS FOLLOWING -- ROCEPHIN IV DAILY -- DC PLANNING 12/04 -- SEEN AND EXAMINED -- PATIENT HAS BEEN HERE SINCE -- NO COMPLAINTS -- NO FEVER -- BLOOD CULTURE IS NEGATIVE -- WOUND CULTURE GREW Moderate Growth Enterobacter cloacae complexAbnormal -- REPEAT WOUND CULTURE IS NEGATIVE -- ID IS FOLLOWING -- ROCEPHIN IV DAILY -- PODIATRY IS FOLLOWING -- REFERRAL TO ACUTE REHAB WAS DONE -- DC PLANNING 12/05 -- CLINICALLY STABLE -- DC TO ACUTE REHAB CONDITION AT DISCHARGE: Stable Physical Examination: Blood pressure (!) 140/82, pulse 69, temperature 98 F (36.7 C), temperature source Oral, resp. rate16, height 5' 11, weight 128 kg (282 lb 3 oz), SpO2 93 %. General appearance: alert, cooperative, in no acute distress. Head/Neck: Head- normocephalic. Neck- supple, non-tender, without lymphadenopathy Eyes: No Scleral icterus or pallor; EOMI ENT: Trachea midline. Cardiovascular: regular rate and rhythm; normal S1, S2; no murmurs, rubs, clicks or gallops; No/+ peripheral edema. Respiratory: lungs clear to auscultation; without wheezes, rales or rhonchi. Abdomen: soft, non tender, non-distended; positive bowel sounds. Neurological: alert, oriented, normal speech; no focal findings or movement disorder noted. Musculoskeletal: no significant deformity noted. Skin: normal coloration, texture and turgor; no lesions or eruptions. Procedures: No orders of the defined types were placed in this encounter. Consults: Procedures Inpatient consult to Care Management Inpatient consult to Enterostomal Therapy Inpatient consult to Podiatry Inpatient consult to Infectious Diseases Inpatient consult to Physical Medicine Rehab Inpatient consult to Physical Medicine Rehab Other Tests: No orders of the defined types were placed in this encounter. LAST LABS: Results from last 7 days Lab Units 12/05/19 0758 SODIUM mmol/L 139 POTASSIUM mmol/L 4.1 CHLORIDE mmol/L 104 BUN mg/dL 19 CREATININE mg/dL 0.86 GLUCOSE mg/dL 223* CALCIUM mg/dL 9.1 Results from last 7 days Lab Units 12/05/19 0758 ALK PHOS U/L 75 BILIRUBIN TOTAL mg/dL 0.4 TOTAL PROTEIN g/dL 6.4 ALTR U/L 31 AST U/L 20 Results from last 7 days Lab Units 12/05/19 0758 WBC K/mcL 7.98 HGB g/dL 11.4* HCT % 36.3* PLT K/mcL 228 Allergies: Patient has no known allergies. Discharge Diet: Diet Special; Cardiac, Diabetic; Carbohydrate Consistent 75g/meal (>2000 kCal equivalent) Disposition: ACUTE REHAB Discharge Medications Medication List CONTINUE taking these medications aspirin 81 MG EC tablet Take 2 (two) tablets (162 mg total) by mouth daily Start: 11/25/19. calcium carbonate 400 mg Chew carvediloL 6.25 MG tablet Commonly known as: COREG Take 2 (two) tablets (12.5 mg total) by mouth every 12 (twelve) hours . cefTRIAXone 2 gram/50 mL IVPB Commonly known as: ROCEPHIN docusate sodium 100 MG capsule Commonly known as: COLACE FENOFIBRATE MICRONIZED ORAL finasteride 5 mg tablet Commonly known as: PROSCAR gabapentin 300 MG capsule Commonly known as: NEURONTIN insulin glargine 100 unit/mL (3 mL) Inpn Commonly known as: LANTUS levothyroxine 112 MCG tablet Commonly known as: SYNTHROID, LEVOTHROID magnesium oxide 400 mg (241.3 mg magnesium) tablet Commonly known as: MAG-OX melatonin 5 mg Tab metFORMIN 500 MG 24 hr tablet Commonly known as: GLUCOPHAGE-XR multivitamin per tablet Commonly known as: THERAGRAN NovoLIN R Regular U-100 Insuln 100 unit/mL injection Generic drug: insulin regular ondansetron 4 MG tablet Commonly known as: ZOFRAN rosuvastatin 20 MG tablet Commonly known as: CRESTOR tamsulosin 0.4 mg capsule Commonly known as: FLOMAX Physician(s) Family: Rohit Aguilar MD, , Address: [address] / [place] [address] Follow Up: [facility] Address: [address] [place] [address] Servicing Counties: [phone] Patient instructions, including activity, were given to the patient/family at discharge. Please seethe After Visit Summary in the medical record for details. Time spent on discharge: > 30 minutes Completed by: Man Crews on 12/06/19, 2:01 PM documented in this encounter* Sinai Lopez MD - 12/19/2019 9:45 AM EDT Physical Medicine & Rehabilitation Discharge Summary 12/19/2019 Sinai Lopez MD [facility] Patient: Dyllan Huertas Date of : 1960 (59 y.o.) Date of Admission: 12/06/2019 PCP: Rohit Aguilar MD [address] / [place] [address] Discharge Date & Time 12/19/2019 9:45AM Disposition Home Health Care Services Condition Good Discharge Diet carb controlled Dyllan Huertas is a 59 y.o. male with a past medical history of DM2 w/ charcot joint arthropathy recent right midfoot wedge resection with application of ex- fix (11/20/19), HLD was admitted on 11/30/2019 with osteomyelitis of right ankle. Hospital course significant for: debridement of right ankle; hyperglycemia. IV abx per ID. Patient was admitted to [facility] on 12/06/2019 where he progressed well. Rehab hospital course significant for: urinary retention in which patient will have to follow-up with urology for. Patient will follow-up with endocrinology. Discharge Diagnoses & Plan: Mixed hyperlipidemia Assessment & Plan Statin. 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 * Osteomyelitis (HCC) Assessment & Plan Discharge on abx per ID. Current Discharge Medication List START taking these medications Details insulin NPH (HumuLIN,NovoLIN) 100 unit/mL injection Take 30 units with breakfast, and 26 units at bedtime . Qty: 20 mL, Refills: 12 CONTINUE these medications which have CHANGED Details insulin regular (HumuLIN R, NovoLIN R) 100 unit/mL injection Use as directed before meals, approx 40 units total daily . Qty: 20 mL, Refills: 12 CONTINUE these medications which have NOT CHANGED Details aspirin 81 MG EC tablet Take 2 (two) tablets (162 mg total) by mouth daily Start: 11/25/19. Qty: 60 tablet, Refills: 0 calcium carbonate 400 mg Chew Chew and Swallow 1,000 mg daily . carvediloL (COREG) 6.25 MG tablet Take 2 (two) tablets (12.5 mg total) by mouth every 12 (twelve) hours . Qty: 120 tablet, Refills: 0 cefTRIAXone (ROCEPHIN) 2 gram/50 mL IVPB Infuse 2,000 mg into a venous catheter daily . docusate sodium (COLACE) 100 MG capsule Take 100 mg by mouth daily . FENOFIBRATE MICRONIZED ORAL Take 160 mg by mouth daily . finasteride (PROSCAR) 5 mg tablet Take 2.5 mg by mouth every night at bedtime Wednesday,WED,WED . gabapentin (NEURONTIN) 300 MG capsule gabapentin GABAPENTIN 300 MG CAPS One tablet by mouth daily GABAPENTIN [id number] Sebastián Dailey MD 06-15-2017 [facility] ([id number]) levothyroxine (SYNTHROID, LEVOTHROID) 112 MCG tablet once daily . magnesium oxide (MAG-OX) 400 mg (241.3 mg magnesium) tablet Take 400 mg by mouth daily . melatonin 5 mg Tab Take 10 mg by mouth daily . metFORMIN (GLUCOPHAGE-XR) 500 MG 24 hr tablet 1,000 mg 2 (two) times a day . multivitamin (THERAGRAN) per tablet Take 1 tablet by mouth daily . ondansetron (ZOFRAN) 4 MG tablet Take 4 mg by mouth every 8 (eight) hours as needed for nausea . rosuvastatin (CRESTOR) 20 MG tablet 20 mg daily . tamsulosin (FLOMAX) 0.4 mg capsule tamsulosin TAMSULOSIN HCL 0.4 MG CAPS One tablet by mouth daily TAMSULOSIN HCL [id number] Sebastián Dailey MD 06-15-2017 [facility] ([id number]) STOP taking these medications insulin glargine (LANTUS) 100 unit/mL (3 mL) InPn Comments: Reason for Stopping: Allergies: Patient has no known allergies. Physical Exam: BP 112/70 Pulse 72 Temp 98.2 F (36.8 C) (Oral) Resp (!) 20 Ht 5' 11 Wt 116 kg (255 lb 11.7 oz) SpO2 93% BMI 35.67 kg/m GENERAL: General Appearance: In no apparent distress, well nourished HEENT: Normocephalic, atraumatic, neck supple, EOMI, PER Respiratory: On room air, no respiratory distress Cardiovascular: Peripheral pulses palpable, 2+ edema b/l Abdomen: Nontender, nondistended Musculoskeletal: left charcot ankle; s/p right ex-fix and debridement with wound closure; decreasedPROM of left ankle dorsiflexion and plantar flexion. Skin: ZECHARIAH wraps on lower limbs, right lower limb dressing in tact. Psychiatric: Normal mood and affect, appropriate insight and judgement Follow Up: Rohit Aguilar MD [address] [facility] [address] Go on 12/22/2019 Appointment on 12/21 @ 11:30 am [facility] Address: [address] [place] [address] Servicing Counties: [phone] [facility] [address] [facility] [phone] Go on 12/21/2019 Appointment on 12/20 @ 8am , will be seen by Dr Andrey Awad & Dr Mora. Dean Izquierdo MD [address] [place] [address] [facility] [phone] Go on 01/03/2020 Appointment on January 02 at 10:45 am Sera Bowden MD [address] [facility] [place] [address] [facility] [address] Follow up Continue to monitor your blood glucose levels. Call Blood sugar results into Dr Bowden's office as instructed : [phone] Attestation: Patient was appropriate to participate in an inpatient rehabilitation program. A multidisciplinary team approach was necessary including rehab physician, consulting physicians, rehab nursing, PT OT,TR and social work for medication management, bowel and bladder care, skin care, respiratory care, strengthening, endurance, mobility, DREW, gait and balance training, ADLs, patient and family training,coping, community re-entry, functional skills retraining, and other services to maximize functionalindependence that was best served with acute inpatient rehabilitation as opposed to lower level of care. To view specific areas of progress view FIM scores in the chart. All rehabilitation goals were met. Patient instructions, including activity, were given to the patient/family at discharge. Please seethe After Visit Summary in the electronic medical record for details. Time spent on discharge: > 30 minutes documented in this encounter Procedure Findings Note Intraoperative fluoroscopy p rovided. Severe bony deformity of the foot as described. Please correlate with operative note. JRS/bd Workstation ID: [id number] Discharge Instructions * Discharge Instr - AVS First Page* Maria Isabel Awad MD - 12/18/2019 12:25 PM EDT Outpatient Antibiotic Rx Meropenem 1 g IV twice daily Indication: Right foot skin soft tissue infection IV antibiotic stop date = 01/02/2020 Remove PICC/ midline after IV antibiotic Rx ends. No blood draw from PICC/Midline Weekly labs while on IV antibiotic: CBC , CMP, sed rate ,CRP, Please fax results to office of Dr Andrey AWAD [phone] Andrey Awad on her cell [phone] with [facility] trough results ID physician Follow up: In the wound clinic on with Dr. Mora Dressing changes: Please check with Dr. Mora for any orders that you need * Discharge Instr - Other Orders* Claudia Zayas, GURPREET - 12/19/2019 2:50 PM EDT Clamp catheter for 6 hours, release for 45 min to 1 hour then clamp again. No weight bearing to R foot. Dressing change to PICC done 12/18/19 Flushed last at 2:00 PM Home Health Care nurse not to change R ankle and foot unless orders change. * Discharge Instr - Care Coordination* Shavon Vogel RN - 12/18/2019 8:[address] Mora will see you in wound care on & then will give order for home care at that time. Home health care are not to do dressing change until after appt in wound care on 12/21/2019. Continue to monitor your blood glucose levels . Call Blood sugar results into Dr Bowden's office as instructed : [phone] Strict NWB to right lower extremity at all times WBAT to left lower extremity in good supportive shoes Leave schulte cath in place until seen by Dr Izquierdo. Home health RN will contact you to start service for IV antb today. Plan for home IV antb until 01/02/2020. Home health care for lab work ordered by Dr Angelina Awad. documented in this encounter* Discharge Instr - AVS First Page* Alena Mora DPM - 05/03/2020 7:14 AM EDT Keep posterior splint clean and dry Do not remove. Do not get wet Continue Lovenox injections daily for 21 days Non-weightbearing to right lower extremity Take your oral antibiotics Doxycycline for 2 weeks [facility] documented in this encounter* Discharge Instr - AVS First Page* Alena Mora DPM - 11/23/2019 12:32 PM EST Outpatient Antibiotic Rx Rocephin 2 g IV every 24 hours till December 18 Indication: Osteomyelitis of the right foot IV antibiotic stop date = December 19, 2019 Remove PICC/ midline after IV antibiotic Rx ends. No blood draw from PICC/Midline Weekly labs while on IV antibiotic: CBC , CMP, sed rate ,CRP, every Wednesday send results to Dr. awad Please fax results to office of Dr Andrey AWAD [phone] ID physician Follow up: Wound clinic 8 AM every morning arrange for transport Dressing changes: Per Dr. Mora Per Dr. Mora: NWB to RLE at all times Dressing are as follows: - Clean all pins and wires every other day using peroxide. Following peroxide, cut xeroform into small strips and wrap each pin and wire. - Apply 4x4 gauze to each pin/wire - Apply 2 kerlix or jyotsna to right foot through frame - Apply 6 zechariah bandage to cover frame * Discharge Instr - Other Orders* Sabrina Hatch, RN - 11/23/2019 2:15 PM EST Dressing are as follows: - Clean all pins and wires every other day using peroxide. Following peroxide, cut xeroform into small strips and wrap each pin and wire. - Apply 4x4 gauze to each pin/wire - Apply 2 kerlix or jyotsna to right foot through frame - Apply 6 zechariah bandage to cover frame Per Dr Mora Leave Schulte catheter in for one week post discharge; patient then can follow up with his urologist,Dr Izquierdo at that time (patient has seen him, he has straight cath'd in the past) Per Dr Palmer * Discharge Instr - Wound* Alena Mora DPM - 11/23/2019 2:15 PM EST Dressing are as follows: - Clean all pins and wires every other day using peroxide. Following peroxide, cut xeroform into small strips and wrap each pin and wire. - Apply 4x4 gauze to each pin/wire - Apply 2 kerlix or jyotsna to right foot through frame - Apply 6 zechariah bandage to cover frame Dr. Mora documented in this encounter* Discharge Instr - AVS First Page* Rosa M Robles DPM - 01/25/2019 9:47 AM EDT Keep dressing clean, dry and intact right foot Rest and elevate right foot during wake hours Wear surgical shoe and may ambulate for life's needs Take cipro for infection and norco for pain Make f/u appointment in 8 days in [place] office with Dr. Robles documented in this encounter Chief Complaint 6 mos w/PSAYearly w/ PSA Chief Complaint and Reason for Visit Chief Complaint 9 m fu Atherosclerotic heart disease of [place] coronary a Reason for Visit Essential (primary) hypertension H/O coronary artery bypass surgery Hyperlipidemia Ischemic cardiomyopathy Chief Complaint Admit Date 1 Y FU March 19, 2025 8:47 am Reason for Visit Admit Date Bradycardia March 19, 2025 8:47 am Essential (primary) hypertension March 192024 8:47am H/O coronary artery bypass surgery March 19, 2025 8:47am Hyperlipidemia March 19, 2025 8:47 am Ischemic cardiomyopathy March 19, 2025 8:47am Type 2 diabetes mellitus with foot ulcer March 19, 2025 8:47am Additional Source Comments (unrecognized sect ion and content) No Status Records FoundNo Status Records FoundNo Status Records FoundNo Status Records FoundNo Status Records FoundNo Status Records FoundNo Status Records FoundNo Status Records FoundNo Status Records FoundNo Status Records FoundNo Status Records FoundNo Status Records FoundNo Status Records FoundNo Status Records FoundNo Status Records Found INFORMATION SOURCE (unrecogn ized section and content) DATE CREATED AUTHOR 03/30/2018 [facility] DATE CREATED AUTHOR AUTHOR'S ORGANIZ ATION 03/30/2018 [facility] DATE CREATED AUTHOR AUTHOR'S ORGANIZ ATION 04/28/2020 [facility] DATE CREATED AUTHOR AUTHOR'S ORGANIZ ATION 05/30/2022 [facility] DATE CREATED AUTHOR AUTHOR'S ORGANIZ ATION 03/14/2023 [facility] DATE CREATED AUTHOR AUTHOR'S ORGANIZ ATION 03/14/2023 [facility] DATE CREATED AUTHOR AUTHOR'S ORGANIZ ATION 07/09/2024 [facility] DATE CREATED AUTHOR AUTHOR'S ORGANIZ ATION 08/13/2024 [facility] DATE CREATED AUTHOR AUTHOR'S ORGANIZ ATION 10/23/2024 [facility] DATE CREATED AUTHOR AUTHOR'S ORGANIZ ATION 11/09/2024 [facility] DATE CREATED AUTHOR AUTHOR'S ORGANIZ ATION 02/28/2025 [facility] DATE CREATED AUTHOR AUTHOR'S ORGANIZ ATION 02/28/2025 [facility] DATE CREATED AUTHOR AUTHOR'S ORGANIZ ATION 04/27/2025 [facility] DATE CREATED AUTHOR AUTHOR'S ORGANIZ ATION 05/03/2025 [facility] DATE CREATED AUTHOR AUTHOR'S ORGANIZ ATION 05/09/2025 [facility] Alice Kaur CNP - 01/20/2019 10:00 AM Sinai Osborne MD - 12/06/2019 9:20 AM Sinai Hickey MD - 12/04/2019 12:11 PM Shavon Woodson RN - 12/07/2019 5:07 PM EST Consult Notes (unrecognized section and content) ANESTHESIA PREPROCEDURE EVALUATION Physical Exam Airway Mallampati: IV Neck ROM: full Mouth opening: >3 FB Cardiovascular Rhythm: regular Pulmonary Breath sounds are clear to auscultation Neurological Mental Status: alert Dental Dental exam is normal and age appropriate Review of Systems / Medical History - No history of anesthetic complications Pulmonary Positive: sleep apnea Cardiovascular Exercise tolerance: good Positive: hypertension CAD, CABG/stent (2017; 3 vessel) hyperlipidemia Endocrine / Musculoskeletal Positive: type 2 diabetes using insulin, hypothyroidism Other Negative: smoker and substance abuse documented in this encounter Associated Order(s): IP CONSULT TO PHYSICAL MEDICINE REHAB Patient approved for IPR. Over turned on peer to peer. Can transition when bed available. Associated Order(s): IP CONSULT TO PHYSICAL MEDICINE REHAB Physical Medicine & Rehabilitation Inpatient Consult 12/04/2019 Sinai Lopez MD [facility] Patient: Dyllan Huertas Date of : 1960 (59 y.o.) Referring Provider: Refer to consult order in electronic medical record PCP: Rohit Aguilar MD Date of Admission: 11/30/2019 ASSESSMENT/PLAN: Recommended Level of Care at Discharge: Inpatient Rehab Patient is functionally complex due to NWB on right lower limb s/p repeat debridement/resection and charcot ankle on the left. Patient requires closer monitoring of wound than what subacute level of care can provide (I agree with podiatry) as patient was already readmitted from SNF due to wound complications on the right and is high risk of further joint destruction on the left, already joint contracture. In addition, patient requires close monitoring of blood pressure and blood glucose and IV abx. Rehabilitation Diagnosis: charcot joints b/l. Peripheral neuropathy with b/l charcot joints on b/l lower limbs Mobility and self care impairments Decreased endurance Medical Necessity: Patient will require further close medical management of comorbidities and/or hospital complications after discharge. Intense Therapy Necessity: Physical Therapy and Occupational Therapy Rehab Nursing Necessity: Patient requires complex skin, contracture care and pain management. Pending Lab and Radiology Results Order Current Status Tissue Anaerobic Culture In process Tissue Exam In process Blood Culture #1 Preliminary result Blood Culture #2 Preliminary result Tissue AFB Culture Preliminary result Tissue Aerobic Culture Preliminary result Tissue Fungus Culture Preliminary result SUBJECTIVE: Date of Admission: 11/30/2019 Chief Complaint/Reason for Visit: wound dehiscence Informant(s): Patient History of Present Illness: Dyllan Huertas is a 59 y.o. male with a past medical history of DM2 w/ charcot joint arthropathy recent right midfoot wedge resection with application of ex- fix (11/20/19), HLD was admitted on 11/30/2019 with osteomyelitis of right ankle. Hospital course significant for: debridement of right ankle; hyperglycemia. Patient reports that he was independent with mobility and self care prior to hospitlization for ex fix. He was working on transfers with in SNF when he had dehiscence of wound and doesn't know how he injured it. He reports that he has had pinning of left 5th digit on lower limb and has known charcot ankle on the left. He report that his sister will be able to help assist him at discharge and he has ramp to enter. He states that WC does not fit inside his bathroom. He reports numbness/tingling in lower limbs. Review of Systems: All pertinent positives and negative in HPI/Interval History. All others negative. Allergies: Patient has no known allergies. Home Medications: Prior to Admission medications Medication Sig Start Date End Date Taking? Authorizing Provider aspirin 81 MG EC tablet Take 2 (two) tablets (162 mg total) by mouth daily Start: 11/25/19. 11/25/19 12/25/19 Lissy Palmer MD calcium carbonate 400 mg Chew Chew and Swallow 1,000 mg daily . Historical Provider, carvediloL (COREG) 6.25 MG tablet Take 2 (two) tablets (12.5 mg total) by mouth every 12 (twelve) hours . 11/24/19 12/24/19 Lissy Palmer MD cefTRIAXone (ROCEPHIN) 2 gram/50 mL IVPB Infuse 2,000 mg into a venous catheter daily . Historical Provider, docusate sodium (COLACE) 100 MG capsule Take 100 mg by mouth daily . Historical Provider, FENOFIBRATE MICRONIZED ORAL Take 160 mg by mouth daily . 01/26/15 Historical ProviderMD finasteride (PROSCAR) 5 mg tablet Take 2.5 mg by mouth every night at bedtime Wednesday,WED,WED . 04/16/15 Historical Provider, gabapentin (NEURONTIN) 300 MG capsule gabapentin GABAPENTIN 300 MG CAPS One tablet by mouth daily GABAPENTIN [id number] Sebastián Dailey MD 06-15-2017 [facility] ([id number]) 06/15/17 Historical Provider, insulin glargine (LANTUS) 100 unit/mL (3 mL) InPn Inject 50 Units under the skin nightly . Historical Provider, levothyroxine (SYNTHROID, LEVOTHROID) 112 MCG tablet once daily . 01/12/19 Historical Provider, magnesium oxide (MAG-OX) 400 mg (241.3 mg magnesium) tablet Take 400 mg by mouth daily . Historical Provider, melatonin 5 mg Tab Take 10 mg by mouth daily . Historical Provider, metFORMIN (GLUCOPHAGE-XR) 500 MG 24 hr tablet 1,000 mg 2 (two) times a day . 10/21/18 Historical Provider, multivitamin (THERAGRAN) per tablet Take 1 tablet by mouth daily . Historical Provider, NovoLIN R Regular U-100 Insuln 100 unit/mL injection INJECT 50 UNITS SUBCUTANEOUSLY 3 TIMES DAILY WITH MEALS WITH ADDITIONAL PER SLIDING SCALE 10/20/19 Historical Provider, ondansetron (ZOFRAN) 4 MG tablet Take 4 mg by mouth every 8 (eight) hours as needed for nausea . Historical Provider, rosuvastatin (CRESTOR) 20 MG tablet 20 mg daily . 09/17/16 Historical Provider, tamsulosin (FLOMAX) 0.4 mg capsule tamsulosin TAMSULOSIN HCL 0.4 MG CAPS One tablet by mouth daily TAMSULOSIN HCL [id number] Sebastián Dailey MD 06-15-2017 [facility] ([id number]) 06/15/17 Historical Provider, Current HOSPITAL Medications: Current Facility-Administered Medications Medication Dose Route Frequency Provider Last Rate Last Dose acetaminophen (TYLENOL) tablet 650 mg 650 mg Oral Q4H PRN Boogie Phan MD albuterol (PROVENTIL) 2.5 mg /3 mL (0.083 %) nebulizer solution 2.5 mg 2.5 mg Inhalation Q2H PRN Boogie Phan MD aspirin EC tablet 162 mg 162 mg Oral Daily Boogie Phan MD 162 mg at 12/04/19 0835 atorvastatin (LIPITOR) tablet 40 mg 40 mg Oral Nightly Boogie Phan MD 40 mg at 12/03/19 2104 calcium carbonate (TUMS) chewable tablet 1,000 mg 1,000 mg Oral Daily Boogie Phan MD 1,000 mg at 12/04/19 0835 carvediloL (COREG) tablet 12.5 mg 12.5 mg Oral BID Boogie Phan MD 12.5 mg at 12/04/19 0835 cefTRIAXone (ROCEPHIN) IVPB 2 g (premix) 2,000 mg Intravenous Q24H Boogie Phan MD Stopped at 12/03/19 1350 docusate sodium (COLACE) capsule 100 mg 100 mg Oral Daily Boogie Phan MD 100 mg at 12/04/19 0835 fenofibrate tablet 160 mg 160 mg Oral Daily with breakfast Boogie Phan MD 160 mg at 12/04/19 0835 gabapentin (NEURONTIN) capsule 300 mg 300 mg Oral Q8H LESLEY Boogie Phan MD 300 mg at 12/04/19 0625 insulin glargine (LANTUS) injection 30 Units 30 Units Subcutaneous BID Boogie Phan MD 30 Units at 12/04/19 0832 insulin lispro (HumaLOG) injection 0-15 Units 0-15 Units Subcutaneous at bedtime Boogie Phan MD 2 Units at 12/03/19 2243 insulin lispro (HumaLOG) injection 0-30 Units 0-30 Units Subcutaneous TID AC Boogie Phan MD 12 Units at 12/04/19 1137 levothyroxine (SYNTHROID, LEVOTHROID) tablet 112 mcg 112 mcg Oral Daily Boogie Phan MD 112 mcg at 12/04/19 0624 magnesium oxide (MAG-OX) tablet 400 mg 400 mg Oral Daily Boogie Phan MD 400 mg at 12/04/19 0835 melatonin Tab 10 mg 10 mg Oral at bedtime Boogie Phan MD 10 mg at 12/03/19 2104 nitroGLYCERIN (NITROSTAT) SL tablet 0.4 mg 0.4 mg Sublingual Q5 Min PRN Boogie Phan MD ondansetron (ZOFRAN-ODT) disintegrating tablet 4 mg 4 mg Oral Q6H PRN Boogie Phan MD pneumococcal vaccine (PNU-IMMUNE 23) injection 0.5 mL 0.5 mL Intramuscular Prior To Discharge Maria Isabel Awad MD tamsulosin (FLOMAX) 24 hr capsule 0.4 mg 0.4 mg Oral After evening meal Boogie Phan MD 0.4 mg at 12/03/19 1742 traZODone (DESYREL) tablet 50 mg 50 mg Oral Nightly PRN Boogie Phan MD Past Medical History: Diagnosis Date Coronary artery disease Diabetes mellitus, type 2 (HCC) Hyperlipidemia Hypertension Hypothyroidism Peripheral neuropathy Sleep apnea, obstructive does not use CPAP Past Surgical History: Procedure Laterality Date APPENDECTOMY ARTHROPLASTY TOE Right 01/25/2019 Procedure: ARTHROPLASTY 2ND TOE RIGHT FOOT; Surgeon: Rosa M Robles DPM; Location: [facility] [place]; Service: Podiatry CABG 2017 CARDIAC SURGERY 2017 CABG tripe bypass CYST REMOVED FROM CHEST N/A METAL IN LEFT LEFT WRIST AND LEFT 5TH TOE Left ORTHOPEDIC SURGERY RECONSTRUCTION FOOT CHARCOT Right 11/20/2019 Procedure: RIGHT FOOT RECONSTRUCTION WITH APPLICATION OF CIRCULAR STATIC EXTERNAL FIXATION; Surgeon: Alena Mora DPM; Location: [facility] OR; Service: Podiatry RT FOOT SURGERY Right TUMMY TUCK N/A Family History Problem Relation Age of Onset Heart disease Mother Heart disease Father Heart disease Brother Social History Socioeconomic History Marital status: Single Spouse name: Not on file Number of children: Not on file Years of education: Not on file Highest education level: Not on file Occupational History Not on file Social Needs Financial resource strain: Not on file Food insecurity Worry: Not on file Inability: Not on file Transportation needs Medical: Not on file Non-medical: Not on file Tobacco Use Smoking status: Never Smoker Smokeless tobacco: Never Used Substance and Sexual Activity Alcohol use: Yes Comment: occassionally Drug use: Never Sexual activity: Not Currently Lifestyle Physical activity Days per week: Not on file Minutes per session: Not on file Stress: Not on file Relationships Social connections Talks on phone: Not on file Gets together: Not on file Attends scientologist service: Not on file Active member of club or organization: Not on file Attends meetings of clubs or organizations: Not on file Relationship status: Not on file Other Topics Concern Not on file Social History Narrative Not on file Additional History Comments: None Therapy Assessments: Assessments per PT, OT, ST documentation (last filed value): Home Living Type of Home: Facility(from [facility]) (12/04/19923) Home Layout: One level (12/04/19923) Bathroom Shower/Tub: Walk-in shower(at [facility], tubshower with shower bench at home) (12/04/19915) Bathroom Toilet: Standard (12/04/19915) Bathroom Equipment: (not recorded) Bathroom Accessibility: Accessible via walker(accessible with w/c at [facility]) (12/04/19915) Home Equipment: Wheeled Walker, Wheelchair-manual(knee scooter) (12/04/19923) Additional Comments: Pt lives at home alone in 1 level home with ramp, but most recently from [facility] after D/C from hospital last week. (12/04/19923) Prior Level of Function Level of [place]: Independent with ADLs and functional transfers, Independent with homemaking with ambulation (12/04/19923) Lives With: Alone (12/04/19923) Receives Help From: Family (12/04/19923) Homemaking Assistance: Independent (12/04/19915) Vocational: On disability (12/04/19915) Leisure: (not recorded) Comments: Ind at [facility] with no AD. Most recently transferring with therapy at [facility] in/out of W/C. (12/04/19923) Current Level of Function Balance: Sitting Balance - Static: Supports self independantly with both upper extremities (12/04/19923) Sitting Balance - Dynamic: (not recorded) Standing Balance - Static: Performs 25% or less sitting activity (12/04/19923) Standing Balance - Dynamic: (not recorded) Bed Mobility: Rolling: (not recorded) Supine to Sit: Stand by assistance (12/04/19923) Sit to Supine: (not recorded) Transfers: Sit to Stand: Max (12/04/19923) Bed to Chair: Two person assist, Max (12/04/19923) Stand Pivot Transfers: Two person assist, Max (12/04/19923) Squat Pivot Transfers: (not recorded) [employer]: Wheeled walker (12/04/19923) Gait/Locomotion: Gait Assistance: (not recorded) Assistive Device: (not recorded) Distance: (not recorded) Pattern: (not recorded) Weight Bearing Status: (not recorded) ADL & IADL Feeding: Independent (12/04/19915) Meal Prep: (not recorded) Grooming : Modified independence (12/04/19915) UE Bathing : (not recorded) LE Bathing : (not recorded) UE Dressing: Modified independence (12/04/19915) LE Dressing: Max (12/04/19915) Toileting : Max(bed youssef at present) (12/04/19915) Speech Therapy Speech Functional Diagnosis: CVA: (not recorded) Speech/Language (Unrelated to CVA): (not recorded) Cognition (Unrelated to CVA): (not recorded) Dysphagia (Unrelated to CVA): (not recorded) Voice (Unrelated to CVA): (not recorded) OBJECTIVE: Physical Examination: BP 123/77 Pulse 77 Temp 98.4 F (36.9 C) (Oral) Resp 16 Ht 5' 11 Wt 128 kg (282 lb 3 oz) SpO2 94% BMI 39.36 kg/m Intake/Output Summary (Last 24 hours) at 12/04/2019 1211 Last data filed at 12/04/2019 0900 Gross per 24 hour Intake 1732.83 ml Output 2030 ml Net -297.17 ml GENERAL: General Appearance: In no apparent distress, well nourished HEENT: Normocephalic, atraumatic, neck supple, EOMI, PER Respiratory: On room air, no respiratory distress Cardiovascular: Peripheral pulses palpable, 2+ edema Abdomen: Nontender, nondistended Musculoskeletal: left charcot ankle; s/p right ex-fix and debridement with wound closure; decreased PROM of left ankle dorsiflexion and plantar flexion. Skin: right lower limb wrapped with ZECHARIAH wrap Psychiatric: Normal mood and affect, appropriate insight and judgement MENTAL STATUS: Alertness, Attention & Concentration: Normal Communication: Normal Orientation: Normal Memory, Recent & Remote: Normal CRANIAL NERVES: II, III: Pupils: PER III, IV, : Eye Movements: Normal (EOMI, No ptosis, No nystagmus) V - Facial Sensation: Normal VII: Face Symmetry & Strength: Normal VIII Hearing: Normal IX, X Palate:: Normal XI - Shoulder Shrug: Normal XII - Tongue Protrusion: Normal GAIT: Unable to walk due to no assistance to safely evaluate COORDINATION & GROSS MOTOR: Abnormal Movements: None Tone: Normal MOTOR - MUSCLE STRENGTH: Right Muscle Strength Left 5 Shoulder Abduction 5 5 Elbow Flexion 5 5 Elbow Extension 5 5 Wrist Extension 5 5 Finger Abduction 5 5 Hip Flexion 5 5 Knee Extension 5 EDDI Knee Flexion 5 EDDI Dorsiflexion 4 EDDI Plantar Flexion 4 MOTOR MARTINO: 5 Normal Power 4 Movement against moderate resistance over a full range of motion 3 Movement against gravity over almost full range of motion 2 Movement with gravity eliminated over almost full range of motion 1 Trace Movement (flicker of contraction visible or palpable) 0 No Movement (no contraction visible or palpable) EDDI Unable to Assess SENSATION: Light Touch: impaired Position Sense: impaired Lab Results Component Value Date ALBUMIN 2.4 (L) 12/02/2019 ALT 53 12/02/2019 AST 32 12/02/2019 BUN 19 12/02/2019 CALCIUM 9.2 12/02/2019 CL 102 12/02/2019 CHOL 115 11/27/2019 CREATININE 1.06 12/02/2019 GLUCOSE 256 (H) 12/02/2019 HDL 28 (L) 11/27/2019 HCT 36.7 (L) 12/02/2019 HGB 11.5 (L) 12/02/2019 HGBA1C 8.8 (H) 11/27/2019 MG 2.1 11/24/2019 PLT 235 12/02/2019 K 4.7 12/02/2019 NA 137 12/02/2019 TRIG 177 (H) 11/27/2019 WBC 9.43 12/02/2019 Recent MRI & CT Studies: No orders to display Pending Lab and Radiology Results Order Current Status Tissue Anaerobic Culture In process Tissue Exam In process Blood Culture #1 Preliminary result Blood Culture #2 Preliminary result Tissue AFB Culture Preliminary result Tissue Aerobic Culture Preliminary result Tissue Fungus Culture Preliminary result Occupational Therapy OCCUPATIONAL THERAPY EVALUATION NOTE Diagnosis: subacute osteomyelitis right ankle, s/p debridement right ankle 12-02-19, right ankle external fixator, uncontrolled DM with Charcot's joint arthropathy NWB RLE Skilled Therapy Needs After Discharge Are Skilled Therapy Services Needed After Discharge: Yes Intensity of Skilled Therapy: Up to 5 days per week Anticipated Duration of Skilled Therapy: Duration 10 - 30 days DME Recommendation: To be determined at next level of care Rehab Potential: Good Outcomes Measures Prior Function Daily Activity: Raw Score: 24 Prior Function Daily Activity % Impaired: 0% functionally impaired AM-PAC Daily Activity: Raw Score: 18 AM-PAC Daily Activity % Impaired: 46.65% functionally impaired Occupational Therapy Assessment The patient presents with musculoskeletal impairment(s) in generalized debility right lower extremity which create performance deficits including strength, balance and activity tolerance, safety, and knowledge deficit. These performance impairments limit participation in LE dressing, bathing, toileting, home management, meal preparation and functional mobility in the chosen occupational roles of premorbid level individual, family member and community member. The patient's co morbidities do significantly affect patient performance in the above activities and roles. The patient's home setup is a bottler and family/caregiver support is a bottler for return to prior level of function. The patient's awareness of own capacity and performance is a bottler to return to prior level of function. During the assessment, minimal to moderate modification of task was required and limited treatment options were identified in the plan of care. This consultation required expanded review of the medical and therapy history. Activity Tolerance Activity Tolerance: Tolerates 10 - 20 min activity with multiple rests Therapy Precautions Orthotic Devices: Yes Lower Extremity: External Fixator, Right Weight Bearing Status: X RLE: Non Wt bearing General Rehab Precautions: Fall risk(ARJO for transfers) Cognition Overall Cognitive Status: Within Functional Limits Arousal/Alertness: Appropriate responses to stimuli Orientation Level: Oriented X4 Attention: Attends to distracted environment Hearing Status: WFL Social Interaction: WFL ADL/IADL Feeding: Independent Grooming : Modified independence UE Dressing: Modified independence LE Dressing: Max Toileting : Max(bed youssef at present) Bed Mobility Supine to Sit: Modified independence(HOB raised, use of bed rail) Functional Transfers Sit to Stand: Max Bed to Chair Transfers: Max, Two person assist Exercise BUE function WFL Interventions Home Living Type of Home: Facility(from [facility]) Home Layout: One level Bathroom Shower/Tub: Walk-in shower(at [facility], tubshower with shower bench at home) Bathroom Toilet: Standard Bathroom Accessibility: Accessible via walker(accessible with w/c at [facility]) Home Equipment: Wheeled Walker, Wheelchair-manual(knee scooter) Additional Comments: Pt lives at home alone in 1 level home with ramp, but most recently from [facility] after D/C from hospital last week. Prior Level of Function Level of [place]: Independent with ADLs and functional transfers, Independent with homemaking with ambulation Lives With: Alone Receives Help From: Family ADL Assistance: Independent Homemaking Assistance: Independent Vocational: On disability Comments: Ind at [facility] with no AD. Most recently transferring with therapy at [facility] in/out of W/C. Independent with homemaking and in community prior to ankle infection. Past Medical History: Diagnosis Date Coronary artery disease Diabetes mellitus, type 2 (HCC) Hyperlipidemia Hypertension Hypothyroidism Peripheral neuropathy Sleep apnea, obstructive does not use CPAP Past Surgical History: Procedure Laterality Date APPENDECTOMY ARTHROPLASTY TOE Right 01/25/2019 Procedure: ARTHROPLASTY 2ND TOE RIGHT FOOT; Surgeon: Rosa M Robles DPM; Location: [facility] [place] OR; Service: Podiatry CABG 2017 CARDIAC SURGERY 2017 CABG tripe bypass CYST REMOVED FROM CHEST N/A METAL IN LEFT LEFT WRIST AND LEFT 5TH TOE Left ORTHOPEDIC SURGERY RECONSTRUCTION FOOT CHARCOT Right 11/20/2019 Procedure: RIGHT FOOT RECONSTRUCTION WITH APPLICATION OF CIRCULAR STATIC EXTERNAL FIXATION; Surgeon: Alena Mora DPM; Location: [facility] OR; Service: Podiatry RT FOOT SURGERY Right TUMMY TUCK N/A For complete objective data, detailed plan of care and patient education refer to: OT EVALUATION flow sheet, OT TREATMENT flow sheet, patient Plan of Care, Plan of Care progress note, and Patient Education. This note stands as the current Discharge Summary upon patient discharge from the hospital or completion of Occupational Therapy Plan of Care. Physical Therapy PHYSICAL THERAPY EVALUATION NOTE Skilled Therapy Needs After Discharge Are Skilled Therapy Services Needed After Discharge: Yes Intensity of Skilled Therapy: Up to 5 days per week Anticipated Duration of Skilled Therapy: > 30 days DME Recommendation: To be determined at next level of care Rehab Potential: Good Outcomes Measures Prior Function - Basic Mobility Raw Score: 12 Points Prior Function - Basic Mobility % Impaired: 61.94% functionally impaired AM-PAC - Basic Mobility Raw Score: 10 Points AM-PAC - Basic Mobility % Impaired: 71.92% functionally impaired Physical Therapy Assessment History: Dx: subacute osteomyelitis of R ankle, DM with Charcot's joint arthropathy, morbid obesity, JAYDEN, mixed HLD The following factors influence the patient's participation in the PT plan of care: Personal factors: limited compliance, limited baseline mobility and body habitus Environmental factors: lives alone The following co-morbidities (from this admission or prior) influence the patient's participation in this plan of care: DM, h/o R LE ulcer, Charcot deformity Number of History elements affecting this patient's PT plan of care: 3 or more Examination of Body Systems: The patient presents with impairments of ROM, functional endurance, coordination, balance, foot/leg ulcer, active wound, tissue healing. These impairments result in limitations of gait, functional transfers, safety and activity tolerance. These impairments result in restrictions of household mobility, community mobility and leisure activities. Number of Body Systems elements affecting this patient's PT plan of care: 3 or more Clinical Presentation: The patient's clinical presentation for this PT evaluation is unstable as evidenced by current PT documentation. Activity Tolerance Activity Tolerance: Tolerates 10 - 20 min activity with multiple rests Therapy Precautions Orthotic Devices: Yes Lower Extremity: External Fixator, Right Weight Bearing Status: X RLE: Non Wt bearing General Rehab Precautions: Fall risk(ARJO for transfers) Balance Sitting Balance - Static: Supports self independantly with both upper extremities Standing Balance - Static: Performs 25% or less sitting activity Bed Mobility Supine to Sit: Stand by assistance Transfers Sit to Stand: Max Bed to Chair: Two person assist, Max Stand Pivot Transfers: Two person assist, Max [employer]: Wheeled walker Skilled Intervention: Pt required max A to stand with 2WW with difficulty maintaining stability but adhering to NWB R LE throughout. Pt with instability throughout pivot transfer and requiring chair to be pulled up behind and pt lowered to chair. Pt maintaining NWB R LE throughout entire transfer. Gait/Locomotion Skilled Intervention: NT d/t safety concerns. Pt educated on precautions, discharge planning, and mobility through verbal instruction and demonstration. Pt demonstrated understanding of education. Home Living Type of Home: Facility(from [facility]) Home Layout: One level Home Equipment: Wheeled Walker, Wheelchair-manual(knee scooter) Additional Comments: Pt lives at home alone in 1 level home with ramp, but most recently from [facility] after D/C from hospital last week. Prior Level of Function Level of [place]: Independent with ADLs and functional transfers, Independent with homemaking with ambulation Lives With: Alone Receives Help From: Family Comments: Ind at [facility] with no AD. Most recently transferring with therapy at [facility] in/out of W/C. Past Medical History: Diagnosis Date Coronary artery disease Diabetes mellitus, type 2 (HCC) Hyperlipidemia Hypertension Hypothyroidism Peripheral neuropathy Sleep apnea, obstructive does not use CPAP Past Surgical History: Procedure Laterality Date APPENDECTOMY ARTHROPLASTY TOE Right 01/25/2019 Procedure: ARTHROPLASTY 2ND TOE RIGHT FOOT; Surgeon: Rosa M Robles DPM; Location: [facility] [place]; Service: Podiatry CABG 2017 CARDIAC SURGERY 2017 CABG tripe bypass CYST REMOVED FROM CHEST N/A METAL IN LEFT LEFT WRIST AND LEFT 5TH TOE Left ORTHOPEDIC SURGERY RECONSTRUCTION FOOT CHARCOT Right 11/20/2019 Procedure: RIGHT FOOT RECONSTRUCTION WITH APPLICATION OF CIRCULAR STATIC EXTERNAL FIXATION; Surgeon: Alena Mora DPM; Location: [facility] OR; Service: [facility]iatry [facility] For complete objective data, detailed plan of care and patient education refer to: PT EVALUATION flow sheet, PT TREATMENT flow sheet, patient Plan of Care, Plan of Care progress note, and Patient Education. This note stands as the current Discharge Summary upon patient discharge from the hospital or completion of Physical Therapy Plan of Care. Associated Order(s): IP CONSULT TO PODIATRY History of Present Illness: Patient is a pleasant 59-year-old male who admitted for IV antibiotics, and dehiscence of right plantar surgical incision s/p midfoot wedge resection and application of external fixator for charcot reconstruction. Patient was recently discharged from the hospital to a rehab facility post operatively. However, when he present to me at the wound care center at his 1 week follow-up evaluation, I noted the dehisced central plantar foot incision and draining lateral forefoot pin. At that time, I advised readmission. Patient states that he has been nonweightbearing as instructed to the right lower extremity. No other pedal complaints.Denies fevers, chills, nausea, vomiting, chest pain, shortness of breath, or any other constitutional symptoms. Past Medical History: Diagnosis Date Coronary artery disease Diabetes mellitus, type 2 (HCC) Hyperlipidemia Hypertension Hypothyroidism Peripheral neuropathy Sleep apnea, obstructive does not use CPAP Past Surgical History: Procedure Laterality Date APPENDECTOMY ARTHROPLASTY TOE Right 01/25/2019 Procedure: ARTHROPLASTY 2ND TOE RIGHT FOOT; Surgeon: Rosa M Robles DPM; Location: [facility] [place]; Service: Podiatry CABG 2017 CARDIAC SURGERY 2017 CABG tripe bypass CYST REMOVED FROM CHEST N/A METAL IN LEFT LEFT WRIST AND LEFT 5TH TOE Left ORTHOPEDIC SURGERY RECONSTRUCTION FOOT CHARCOT Right 11/20/2019 Procedure: RIGHT FOOT RECONSTRUCTION WITH APPLICATION OF CIRCULAR STATIC EXTERNAL FIXATION; Surgeon: Alena Mora DPM; Location: [facility] OR; Service: Podiatry RT FOOT SURGERY Right TUMMY TUCK N/A Social History Socioeconomic History Marital status: Single Spouse name: Not on file Number of children: Not on file Years of education: Not on file Highest education level: Not on file Occupational History Not on file Social Needs Financial resource strain: Not on file Food insecurity Worry: Not on file Inability: Not on file Transportation needs Medical: Not on file Non-medical: Not on file Tobacco Use Smoking status: Never Smoker Smokeless tobacco: Never Used Substance and Sexual Activity Alcohol use: Yes Comment: occassionally Drug use: Never Sexual activity: Not Currently Lifestyle Physical activity Days per week: Not on file Minutes per session: Not on file Stress: Not on file Relationships Social connections Talks on phone: Not on file Gets together: Not on file Attends scientologist service: Not on file Active member of club or organization: Not on file Attends meetings of clubs or organizations: Not on file Relationship status: Not on file Other Topics Concern Not on file Social History Narrative Not on file Objective: Vascular: DP and PT pulses are palpable 2/4. Cap refill time is brisk to distal digits. Skin temperature is warm to warm from proximal tibial tuberosity to distal digits. +2 pitting edema noted to the right foot, worse than anticipated. Neuro: Gross sensation is intact. Protective sensation is absent. Dermatologic: The right foot plantar surgical incision site is completely macerated and dehisced centrally. In addition, there is serosanguineous drainage noted from the lateral right foot pain. Remaining pin sites are intact with some low-grade superficial pain and irritation. The external fixator device is intact. No loosening of pins or wires noted. Musculoskeletal: Patient is able to wiggle digits. Compartments are soft and compressible. No calf pain. Assessment: 1 week status post right midfoot wedge resection and application of external fixator for Charcot reconstruction (Date of surgery 11/20/2019 -Dr. Mora). Partial dehiscence, right plantar foot Plan: Patient was seen and evaluated. Discussed all clinical findings. Patient does not recall any injury or trauma to why his incision site has dehisced. Awaiting culture of the right plantar foot dehisced site. Plans were for surgical irrigation and debridement of the right foot plantar incision site, and adjustment of external fixator frame as needed today in the OR. However, plans are now changed secondary to trauma that came in leading for the case to be bumped. Patient has been NPO for 18+ hours now and so decision is made to take to surgery tomorrow afternoon instead. N.p.o. at midnight. We will continue to monitor closely Alena Mora DPM, MS Podiatric Physician and Surgeon [phone] Associated Order(s): IP CONSULT TO CARE MANAGEMENT COMPLEX DISCHARGE Date: 12/01/2019 Time: 11:07 AM Patient Name: Dyllan Huertas Date of : 1960 Sex: Male Initial assessment completed with patient. Patient educated to social work role. Patient Dx is Subacute osteomyelitis of right ankle (HCC) . Patient is from [facility] for skilled care, previously from home alone and plans to return to skilled care at discharge. Pt explained he would prefer Dr. Woodall's suggestion of Inpatient Rehab. Patient has PCP Dr. Aguilar, [employer] Medicare insurance and is currently inpatient status. Patient will likely use ambulance for transportation. Voicemail left with Nelda in admissions at [facility] to confirm that patient may return at discharge. Destination added and InBasket sent with SNF bundle. No indication of abuse or neglect at this time. No further needs identified at this time. Pt has PT/OT consults and was placed on priority list. [facility] following. 14:00- Voicemail received from Nelda at [facility] reporting that they can take pt to return to then through Wednesday, 12/02 with no precert required. Discharge Planning Living Arrangements: Facility Support Systems: Family members Assistance Needed: moderate Type of Residence: long term([facility]) Care Facility Name: ([facility]) Prior to Admission Home Care Services: No Associated Order(s): IP CONSULT TO ENTEROSTOMAL THERAPY Wound care signing off to podiatry and infectious disease, consult if needed documented in this encounter Associated Order(s): IP CONSULT TO DIETITIAN Nutrition Education: Pt/family education: Learner: patient Educated on: Diabetes Readiness: acceptance Method: explanation and handout Response: verbalizes understanding Pt states diagnosed with DM in his mid to late 30's (age). Eats 3 meals/day at consistent times. Checks BS BID (fasting and before eats dinner), BS runs 130- 200, but sometimes is 240-300. Pt named bread, sweets, chips, and pretzels as some foods that contain CHO's. Does not consume regular pop or regular sweetened drinks. Lately has been buying 1% chocolate milk, RDN discouraged that d/t increased CHO content. Pt makes larger portions of food then freezes in individual containers- example) lasagna, beef stew. Buys frozen veggies and freezes in smaller (single) portions. If not hungry for a meal then consumes a protein powder, pt unsure if contains CHO's. Discussed supplements in case pt is not hungry for a meal. Told pt can consume a supplement and add something light to it- like toast, fruit. Told to aim for 75gm CHO/meal. Encouraged to call if has any questions. Has RDN name/number for questions. Joi Lane RDN, LD Dietitian's Office [phone] Associated Order(s): IP CONSULT TO SCHOOL BUS DRIVER Met with pt for continued diabetes education. Discussed the importance of a regular feeding schedule, balancing CHO at each meal, reading food labels, portion control, chair exercises. Seems fairly knowledgeable. Still has questions r/t using SlimFast. Advised SHANTELLE Ambrocio who is planning to meet with pt. Met with patient briefly for Diabetes self management education. Visit interrupted as patient needed his foot dressing completed. Will plan to follow up. A1C: 8.8% Diabetes home medications: Lantus, Metformin, Regular Ordered medications while in hospital: Lantus, Humalog, plus correction scale. Learning needs: Patient has questions related to dietary supplements. RD has been consulted. Patient has used powder supplements and slim fast in the past. Wanting to try Slim fast for Diabetics. Cautioned about insulin dosage adjustments may possibly be needed. Support person: None at bedside. Dietary education: RD consulted, will defer to RD to answer questions related to healthy options for Diabetics and oral supplements. Physical activity: Limited due to foot wound. States he will be wheelchair bound for some time. Blood glucose monitoring: QID at home. States glucose ranges between 120-200, but he would like it improved. States that no matter what he does (although admits higher food intake at times) that his glucose stays in this range. Hypoglycemia & Hyperglycemia: Denies any episode of hypoglycemia. Barriers: Patient is interested in education and engaged in conversation. Plan/Goals: Will need to follow up before discharge next week. Associated Order(s): IP CONSULT TO PODIATRY Podiatry Inpatient Follow-up 12/08/2019 Alena Mora DPM [facility] Patient: Dyllan Huertas Date of : 1960 (59 y.o.) PCP: Rohit Aguilar MD ASSESSMENT/PLAN: Dyllan Huertas 59 y.o. male is POD#6 - status post irrigation and debridement with reclosure of right plantar wound and adjustment of external fixator construct (DOS: 12/01/2019 - Dr. Mora) Status post right midfoot wedge resection and application of external fixator for Charcot reconstruction (Date of surgery 11/20/2019 -Dr. Mora). Plan: Patient was seen and evaluated. Discussed all clinical findings. He is doing very well today Continue IV antibiotics Dressing was changed today with Negar. All pins were cleaned. HV drain was maintained Drainage from HV drain send to microbiology for culture and sensitivity. Patient can continue physical therapy Strict NWB to right lower extremity at all times WBAT to left lower extremity in good supportive shoes No need for dressing change tomorrow. Will return on Wednesday for follow up evaluation. Please call with any questions or concerns regarding this patient's care. Alena Mora DPM, MS Podiatric Physician and Surgeon [phone] SUBJECTIVE: History Since Last Visit: Patient is a pleasant 59-year-old male who is status post irrigation and debridement with re-closure of right plantar ulceration, and adjustment of external fixator construct. He states that he is doing well. Transferred to inpatient rehab. No pedal complaints. No pain. He has been getting up with physical therapy form bed to chair. No fevers, nausea, vomiting, chest pain, shortness of breath, or any other constitutional symptoms. Pending Lab and Radiology Results Order Current Status Urine Aerobic Culture In process Urine Aerobic Culture on arrival to Nursing Rehab unit Preliminary result Interpretation of Testing: I personally reviewed the labs and agree with the interpretation(s). Review of Systems: Constitutional:No fever, no weight loss Resp:No dyspnea. No wheezing Endo:No polyuria Allergic/Immunologic:No hives Psych:No unusual mood swings All other systems reviewed and negative other than HPI OBJECTIVE: Physical Examination: BP 112/71 Pulse 79 Temp 98.9 F (37.2 C) (Oral) Resp 14 SpO2 95% Vascular: DP and PT pulses are palpable 2/4. Cap refill time is brisk to distal digits. Skin temperature is warm to warm from proximal tibial tuberosity to distal digits. Edema much improved from right foot. Neuro: Gross sensation is intact. Protective sensation is absent. Dermatologic: Surgical incision site is well coapted with sutures intact with some maceration to incision. No erythema, edema, or any acute signs of infection. All pin sites are dry without erythema or edema. No drainage from pin sites. HV drain intact with 25 cc of serosanguinous drainage. Musculoskeletal: Patient is able to wiggle digits. Compartments are soft and compressible. No calf pain. Laboratory and Additional Data Reviewed: Reviewed 12/08/19 1:50 PM: Laboratory, Microbiology, Medications and Transcriptions Associated Order(s): IP CONSULT TO ENDOCRINOLOGY Patient ID: Patient Name: Dyllan Huertas Admit Date: 12/06/2019 MR #: [id number] : 1960 Current location: [facility] Physicians: Rohit Aguilar MD (Family); Marino Sheldon CNP (Referring) Reason for consult: Type 2 diabetes out of control Assessment/Plan: Dx: Type 2 diabetes, under poor control Patient would benefit from adjustment in insulin levels to seek euglycemia and aid in wound healing. See plan below. Currently taking as outpatient: Metformin 1000 mg twice daily Humalog insulin: 8 units at breakfast; 8 units at lunch; 8 units at supper Humalog sliding scale Lantus insulin: 30 units at breakfast; 30 units at bedtime Current Hemoglobin A1C= Lab Results Component Value Date HGBA1C 8.8 (H) 11/27/2019 HGBA1C 8.5 (H) 01/20/2019 NOTES: 12/07: Patient's blood glucose levels reviewed over the last 48 hours. Patient recently transferred to the inpatient rehabilitation unit blood glucose levels over the last for a 8 hours have ranged from 185-345 mg/dL. The present time he is taking 30 units of Lantus twice daily along with 8 units of Humalog with meals. Patient also takes metformin 1000 mg twice daily. Blood Glucoses: 12/06: 242---341---239---345 12/07: 185---216 Plan: 1. Rx changes: Adjust as below Humalog insulin: 12 units at breakfast; 12 units at lunch; 12 units at supper Lantus insulin: 35 units at breakfast; 35 units at bedtime Continue Metformin 1000 mg twice daily Decrease SSI to conservative dose. 2. Education: Reviewed ABCs of diabetes management (respective goals in parentheses): A1C (7.0-8.0), blood pressure (<130/80), and cholesterol (LDL <100). Referral to Diabetes Education Referral to Nutrition therapy Subjective: Brief HPI: Dyllan Huertas is a 59 y.o. male with a past medical history of type 2 DM w/ charcot joint arthropath. Patient recently underwent right midfoot wedge resection with application of external fixator (11/20/19). He was initially admitted on 11/30/2019 with osteomyelitis of right ankle. Patient was transferred to [place] inpatient rehab on 12/06/19. Hospital course significant for: debridement of right ankle; hyperglycemia. IV abx per ID. Patient reports that his pain is well controlled. He denies CP or SOB. He reports that he has numbness/tingling of lower limbs. Patient has had diabetes for close to 30 years. Diagnosed in his late 20's, he started with OHAs, transitioned to insulin in approximately 2011. Patient is currently taking Humalog insulin: 8 units at breakfast; 8 units at lunch; 8 units at supper Lantus insulin: 30 units at breakfast; 30 units at bedtime. Prior to admission he reports taking close to 50 units of R TID with meals and 50 units of lantus at HS. Patient reports he had considered changing to R and N due to cost of brand name insulin, however he is planning to delay that at this time. Blood sugar levels since admission have been ranging from 185-362 mg/dL. Current monitoring regimen: home blood tests - 2 times daily Complications of diabetes include: Retinopathy: Negative Nephropathy: Negative Peripheral Neuropathy: Positive Autonomic Neuropathy: Negative Allergies: No Known Allergies Home Medications: Current Facility-Administered Medications Medication Dose Route Frequency Provider Last Rate Last Dose acetaminophen (TYLENOL) tablet 650 mg 650 mg Oral Q4H PRN Helena Sheldon CNP albuterol (PROVENTIL) 2.5 mg /3 mL (0.083 %) nebulizer solution 2.5 mg 2.5 mg Inhalation Q2H PRN Helena Sheldon CNP aspirin EC tablet 162 mg 162 mg Oral Daily Helena Sheldon CNP 162 mg at 12/08/19 0855 atorvastatin (LIPITOR) tablet 40 mg 40 mg Oral Nightly Helena Sheldon CNP 40 mg at 12/07/192109 bisacodyL (DULCOLAX) suppository 10 mg 10 mg Rectal Daily PRN Helena Sheldon CNP calcium carbonate (TUMS) chewable tablet 1,000 mg 1,000 mg Oral Daily Helena Sheldon CNP 1,000 mg at 12/08/19 0855 carvediloL (COREG) tablet 12.5 mg 12.5 mg Oral BID Helena Sheldon CNP 12.5 mg at 12/08/19 0856 cefTRIAXone (ROCEPHIN) IVPB 2 g (premix) 2,000 mg Intravenous Q24H Helena Sheldon CNP 100 mL/hr at 12/07/19 1627 2,000 mg at 12/07/19 1627 docusate sodium (COLACE) capsule 100 mg 100 mg Oral Daily Helena Sheldon CNP 100 mg at 12/08/19 0856 docusate sodium (COLACE) capsule 100 mg 100 mg Oral BID PRN Helena Sheldon CNP fenofibrate tablet 160 mg 160 mg Oral Daily with breakfast Helena Sheldon CNP 160 mg at 12/08/19 0856 gabapentin (NEURONTIN) capsule 300 mg 300 mg Oral Q8H [facility] Helena Sheldon CNP 300 mg at 12/08/19 0505 insulin glargine (LANTUS) injection 35 Units 35 Units Subcutaneous BID Andrés Andre CNP insulin lispro (HumaLOG) injection 0-15 Units 0-15 Units Subcutaneous at bedtime Helena Sheldon CNP 2 Units at 12/07/19 2111 insulin lispro (HumaLOG) injection 0-30 Units 0-30 Units Subcutaneous TID AC Andrés Andre CNP levothyroxine (SYNTHROID, LEVOTHROID) tablet 112 mcg 112 mcg Oral Daily Helena Sheldon CNP 112 mcg at 12/08/19 0504 magnesium oxide (MAG-OX) tablet 400 mg 400 mg Oral Daily Helena Sheldon CNP 400 mg at 12/08/19 0855 melatonin Tab 10 mg 10 mg Oral at bedtime Helena Sheldon CNP 10 mg at 12/07/19 2110 metFORMIN (GLUCOPHAGE) tablet 1,000 mg 1,000 mg Oral BID with meals Helena Sheldon CNP 1,000 mg at 12/08/19 0856 naloxone (NARCAN) injection 0.1 mg 0.1 mg Intravenous PRN Helena Sheldon CNP And naloxone (NARCAN) injection 0.4 mg 0.4 mg Intravenous PRN Helena Sheldon CNP nitroGLYCERIN (NITROSTAT) SL tablet 0.4 mg 0.4 mg Sublingual Q5 Min PRN Helena Sheldon CNP ondansetron (ZOFRAN-ODT) disintegrating tablet 4 mg 4 mg Oral Q6H PRN Helena Sheldon CNP senna (SENOKOT) tablet 8.6 mg 1 tablet Oral BID PRN Helena Sheldon CNP sodium phosphates (FLEETS ADULT) 19-7 gram/118 mL enema 1 each 1 each Rectal Daily PRN Helena Sheldon CNP tamsulosin (FLOMAX) 24 hr capsule 0.4 mg 0.4 mg Oral After evening meal Helena Sheldon CNP 0.4 mg at 12/07/19 1800 traZODone (DESYREL) tablet 50 mg 50 mg Oral Nightly PRN Helena Sheldon CNP Current Medications: aspirin 162 mg Oral Daily atorvastatin 40 mg Oral Nightly calcium carbonate 1,000 mg Oral Daily carvediloL 12.5 mg Oral BID cefTRIAXone 2,000 mg Intravenous Q24H docusate sodium 100 mg Oral Daily fenofibrate 160 mg Oral Daily with breakfast gabapentin 300 mg Oral Q8H LESLEY insulin glargine 35 Units Subcutaneous BID lispro insulin 0-15 Units Subcutaneous at bedtime insulin lispro 0-30 Units Subcutaneous TID AC levothyroxine 112 mcg Oral Daily magnesium oxide 400 mg Oral Daily melatonin 10 mg Oral at bedtime metFORMIN 1,000 mg Oral BID with meals tamsulosin 0.4 mg Oral After evening meal acetaminophen, albuterol, bisacodyL, docusate sodium, nalOXone AND Notify physician AND naloxone, nitroGLYCERIN, ondansetron, senna, sodium phosphates, traZODone Review of Systems: Review of Systems Constitutional: Positive for activity change, fatigue and unexpected weight change. HENT: Negative for trouble swallowing. Eyes: Negative for visual disturbance. Respiratory: Negative for cough and shortness of breath. Cardiovascular: Negative for chest pain and leg swelling. Gastrointestinal: Negative for abdominal pain, constipation, diarrhea, nausea and vomiting. Endocrine: Negative for polydipsia, polyphagia and polyuria. Genitourinary: Schulte in place Musculoskeletal: Positive for arthralgias and myalgias. Skin: Negative for wound. Neurological: Positive for weakness and numbness (and tingling). Negative for headaches. Psychiatric/Behavioral: Negative for agitation and sleep disturbance. The patient is not nervous/anxious. History: Past Medical History: Diagnosis Date Coronary artery disease Diabetes mellitus, type 2 (HCC) Hyperlipidemia Hypertension Hypothyroidism Peripheral neuropathy Sleep apnea, obstructive does not use CPAP Past Surgical History: Procedure Laterality Date APPENDECTOMY ARTHROPLASTY TOE Right 01/25/2019 Procedure: ARTHROPLASTY 2ND TOE RIGHT FOOT; Surgeon: Rosa M Robles DPM; Location: [facility]; Service: Podiatry CABG 2017 CARDIAC SURGERY 2017 CABG tripe bypass CLOSED REDUCTION PERCUTANEOUS PINNING LOWER EXTREMITY N/A 12/02/2019 Procedure: ADJUSTMENT of EXTERNAL FIXATOR; Surgeon: Alena Mora DPM; Location: [facility]; Service: Podiatry CYST REMOVED FROM CHEST N/A INCISION AND DRAINAGE FOOT AND ANKLE Right 12/02/2019 Procedure: RIGHT FOOT I&D; Surgeon: Alena Mora DPM; Location: [facility]; Service: Podiatry METAL IN LEFT LEFT WRIST AND LEFT 5TH TOE Left ORTHOPEDIC SURGERY RECONSTRUCTION FOOT CHARCOT Right 11/20/2019 Procedure: RIGHT FOOT RECONSTRUCTION WITH APPLICATION OF CIRCULAR STATIC EXTERNAL FIXATION; Surgeon: Alena Mora DPM; Location: [facility] OR; Service: Podiatry RT FOOT SURGERY Right TUMMY TUCK N/A Family History Problem Relation Age of Onset Heart disease Mother Heart disease Father Heart disease Brother Diabetes Sister Social History Tobacco Use Smoking status: Never Smoker Smokeless tobacco: Never Used Substance Use Topics Alcohol use: Yes Comment: occassionally mostly beer Drug use: Never The following portions of the patient's history were reviewed and updated as appropriate: allergies, current medications, past family history, past medical history, past social history, past surgical history and problem list. Objective: BP 138/78 Pulse 80 Temp 98.9 F (37.2 C) (Oral) Resp 14 SpO2 95% Wt Readings from Last 3 Encounters: 11/30/19 128 kg (282 lb 3 oz) 11/20/19 129.4 kg (285 lb 4.4 oz) 11/10/19 129.3 kg (285 lb) Physical Exam: Physical Exam Constitutional: He is oriented to person, place, and time. He appears well- developed and well-nourished. HENT: Head: Normocephalic and atraumatic. Eyes: Pupils are equal, round, and reactive to light. Conjunctivae are normal. Neck: Normal range of motion. Neck supple. No thyromegaly present. Cardiovascular: Normal rate, regular rhythm, normal heart sounds and intact distal pulses. Pulmonary/Chest: Effort normal and breath sounds normal. No respiratory distress. He has no wheezes. Abdominal: Soft. Bowel sounds are normal. He exhibits no distension. Genitourinary: Genitourinary Comments: Schulte in place Musculoskeletal: General: Edema (BLE) present. Comments: Right foot wrapped with ZECHARIAH bandage. External fixator in place. Left foot in diabetic shoe, not examined by this provider Neurological: He is alert and oriented to person, place, and time. Skin: Skin is warm and dry. Psychiatric: He has a normal mood and affect. His behavior is normal. Judgment and thought content normal. Laboratory Review: BP 138/78 Pulse 80 Temp 98.9 F (37.2 C) (Oral) Resp 14 SpO2 95% Lab Results Component Value Date HGBA1C 8.8 (H) 11/27/2019 Glucose (mg/dL) Date Value 12/07/2019 243 (H) Creatinine (mg/dL) Date Value 12/07/2019 0.86 Lab Results Component Value Date CHOL 115 11/27/2019 TRIG 177 (H) 11/27/2019 HDL 28 (L) 11/27/2019 LDLCALC 52 11/27/2019 Lab Results Component Value Date TSH 1.63 11/27/2019 No results found for: FREET4 Lab Results Component Value Date WBC 6.95 12/07/2019 HGB 11.3 (L) 12/07/2019 HCT 36.8 (L) 12/07/2019 MCV 87.0 12/07/2019 PLT 210 12/07/2019 This SmartLink has not been configured with any valid records. This SmartLink has not been configured with any valid records. Laboratory and Additional Data Reviewed: Laboratory 12/08/19 12:48 PM Medications 12/08/19 12:48 PM Transcriptions 12/08/19 12:48 PM Thank you for this consultation, we will continue to follow this patient with you. Andrés Andre CNP Associated Order(s): IP CONSULT TO CARE MANAGEMENT COMPLEX DISCHARGE Date: 12/07/2019 Time: 5:07 PM Patient Name: Dyllan Huertas Date of : 1960 Sex: Male Initial CM consult completed at bedside with pt. Pt up in w/c has zechariah wrap dsg covering external fixator to RLE. Pt also has schulte cath in place, pt reports He has had in place since 11/20. At home he straight cathed almost every night, if he doesn't cath he is incont at night time. He reports he gets his cath supplies at [facility] in [place] & then repeat uses after he washes them in hot water. Discussed getting them from a supplier as single use , pt open to this , will f/u during hospital stay. He sees Dr Izquierdo as OP. Pt reports he lives in a ranch 1 level home w/ a finished basement, he can stay on the main floor., w/d on main level. He has a ramp to enter , no HR. He reports he has been having issues with his LE since 04/2019 & was living at home independent but was NWB, he was able to care for self & did everything from his w/c. He was going to wound care Or changed dsg per self. His w/c will go everywhere in his home but bathroom. He states he then had surgery on 11/20 & went to the SNF post op, when he went for f/u he was readmitted. He is retired on disability. He does his own medication & bills prior to SNF stay. He states his sister Mable & ISELA live close & can help him if needed. His sister works FT days, his ISELA is off for the winter. He states he willnot ask his sister to take off work to come to therapy session & his ISELA will not come. They will take him to appt.'s if needed at d/c. He said he monitors his BS & BP at home. Explained role of CM, discharge planning & need for family involvement in rehab process & Pace Program. Pace book given & reviewed with pt. Will continue to follow & assist to develop appropriate discharge plan to meet patient needs as IP Rehab admit progresses. Discharge Planning Living Arrangements: Alone Support Systems: Family members(sister Mable, ISELA & nieces) Assistance Needed: Was at a SNF for 7 days [facility]. Since 04/2019 has been NWB RLE d/t foot ulcer , lived alone but was able to be independent, went to OP wound care. Type of Residence: Private residence(1 level home, finished basement, can stay on main level) Is patient a chcf care resident living at a nursing facility?: Yes(Was at [facility] for 7 days [facility]) Care Facility Name: [facility] Prior to Admission Home Care Services: No Patient expects to be discharged to:: Plans to d/c to home with family support. Discussed need for wound care, HHC vs OP therapy at d/c. Does the patient need discharge transport arranged?: (TBD) Current Home Equipment: Tub/Shower chair, Wheeled walker, Wheel chair, Glucometer, Scooter, Other (Comment)(knee scooter) Anticipated HME: Undetermined Anticipated Home Care Needs: Undetermined, Home health care, Outpatient rehab Anticipated Facility Type: (Plans to d/c to home) Anticipated Discharge Plan Anticipated HME: Undetermined Anticipated Home Care Needs: Undetermined, Home health care, Outpatient rehab Anticipated Facility Type: (Plans to d/c to home) Discharge Readiness Expected Discharge Date: (TBD) Barriers to Discharge: Other (Comment)(Lives alone) Associated Order(s): IP CONSULT TO HOSPITALIST [facility] Inpatient Consult H&P 12/07/2019 Helena Sheldon, JUDD IRF Patient: Dyllan Huertas Date of : 1960 (59 y.o.) PCP: Rohit Aguilar MD Referring Provider: Sinai Lopez* Consult: Alisa Singh MD: Hospitalist assistance with medical management ASSESSMENT/PLAN: Principal Problem: Osteomyelitis (HCC) Active Problems: 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) JAYDEN (obstructive sleep apnea) Mixed hyperlipidemia Benign prostatic hyperplasia with urinary retention Essential hypertension S/P foot surgery, right PLAN: S/P foot surgery, right Assessment & Plan Dr. Mora podiatry consulted to manage wound. Extensive wound care is needed. Non wt bearing. Essential hypertension Assessment & Plan Monitor blood pressure per shift. Check kidney function. Continue coreg Benign prostatic hyperplasia with urinary retention Assessment & Plan Has been straight cathing at home. Follows with Dr. Izquierdo. Bladder training, remove schulte, bladder scan and straight cath. Pt has no bladder sensation Mixed hyperlipidemia Assessment & Plan Continue lipitor and fenofibrate. Uses crestor at home. Monitor liver function JAYDEN (obstructive sleep apnea) Assessment & Plan Encourage pt to wear cpap. Wear nasal cannula at 2L at night if he refuses Cpap 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) Assessment & Plan Consult endocrinology. DM has not been well controlled and the infection is making it worse. Monitor blood glucose ACHS, continue lantus, preprandial humalog, and sliding scale. Diabetic diet * Osteomyelitis (HCC) Assessment & Plan Consult ID and continue IV antibiotics. Non wt bearing on right foot. SUBJECTIVE: Chief Complaint/Reason for Visit: osteomyelitis History of Present Illness: Dyllan Huertas 59 y.o. male with history of DM, charcot feet, chronic leg ulcers, CAD, HTN, who was admitted to the inpatient rehabilitation unit on 12/06/2019 for osteomyelitis. . Dyllan was direct admitted from the wound clinic on 11/30/2019 for iv antibiotics after Dr. Mora, podiatry, evaluated his external fixator of his right foot and noted increased drainage. He had RIGHT FOOT RECONSTRUCTION WITH APPLICATION OF CIRCULAR STATIC EXTERNAL FIXATION on 11/20/19. Hospitalization was significant for Right charcot foot with reconstruction and external fixator Subacute osteomyelitis of right ankle 12/02/2019 Debridement of rt ankle and drain placed. Wound care Dr. Angelina Awad, ID was consulted to managed Enterobacter cloacae. And osteomyelitis. IV Rocephin Diabetes Mellitus, HTN, constipation were also managed. Discharge plan is to inpatient rehab. He had been in a SNF after his reconstructive surgery. Prior to that he had his own home. He managed living at home being non weight bearing. He is set up to access everything from his wheel chair and be independent. He is on disability. Past Medical History: Diagnosis Date Coronary artery disease Diabetes mellitus, type 2 (HCC) Hyperlipidemia Hypertension Hypothyroidism Peripheral neuropathy S/P foot surgery, right 12/09/2019 11/20/2019Right foot reconstruction surgery with external fixation 12/02/2019 Right foot I and D Sleep apnea, obstructive does not use CPAP Past Surgical History: Procedure Laterality Date APPENDECTOMY ARTHROPLASTY TOE Right 01/25/2019 Procedure: ARTHROPLASTY 2ND TOE RIGHT FOOT; Surgeon: Rosa M Robles DPM; Location: [facility] [place]; Service: Podiatry CABG 2017 CARDIAC SURGERY 2017 CABG tripe bypass CLOSED REDUCTION PERCUTANEOUS PINNING LOWER EXTREMITY N/A 12/02/2019 Procedure: ADJUSTMENT of EXTERNAL FIXATOR; Surgeon: Alena Mora DPM; [facility]; Service: Podiatry CYST REMOVED FROM CHEST N/A INCISION AND DRAINAGE FOOT AND ANKLE Right 12/02/2019 Procedure: RIGHT FOOT I&D; Surgeon: Alena Mora DPM; Location: [facility]; Service: Podiatry METAL IN LEFT LEFT WRIST AND LEFT 5TH TOE Left ORTHOPEDIC SURGERY RECONSTRUCTION FOOT CHARCOT Right 11/20/2019 Procedure: RIGHT FOOT RECONSTRUCTION WITH APPLICATION OF CIRCULAR STATIC EXTERNAL FIXATION; Surgeon: Alena Mora DPM; Location: [facility]; Service: Podiatry RT FOOT SURGERY Right TUMMY TUCK N/A Family History Problem Relation Age of Onset Heart disease Mother Heart disease Father Heart disease Brother Diabetes Sister Social History Tobacco Use Smoking Status Never Smoker Smokeless Tobacco Never Used Allergies: Patient has no known allergies. Home Medications: Prior to Admission medications Medication Sig Start Date End Date Taking? Authorizing Provider aspirin 81 MG EC tablet Take 2 (two) tablets (162 mg total) by mouth daily Start: 11/25/19. 11/25/19 12/25/19 Lissy Palmer MD calcium carbonate 400 mg Chew Chew and Swallow 1,000 mg daily . Historical Provider, carvediloL (COREG) 6.25 MG tablet Take 2 (two) tablets (12.5 mg total) by mouth every 12 (twelve) hours . 11/24/19 12/24/19 Lissy Palmer MD cefTRIAXone (ROCEPHIN) 2 gram/50 mL IVPB Infuse 2,000 mg into a venous catheter daily . Historical Provider, docusate sodium (COLACE) 100 MG capsule Take 100 mg by mouth daily . Historical Provider, FENOFIBRATE MICRONIZED ORAL Take 160 mg by mouth daily . 01/26/15 Historical Provider, finasteride (PROSCAR) 5 mg tablet Take 2.5 mg by mouth every night at bedtime Wednesday,WED,WED . 04/16/15 Historical Provider, gabapentin (NEURONTIN) 300 MG capsule gabapentin GABAPENTIN 300 MG CAPS One tablet by mouth daily GABAPENTIN [id number] Sebastián Dailey MD 06-15-2017 [facility] ([id number]) 06/15/17 Historical Provider, insulin glargine (LANTUS) 100 unit/mL (3 mL) InPn Inject 50 Units under the skin nightly . Historical Provider, levothyroxine (SYNTHROID, LEVOTHROID) 112 MCG tablet once daily . 01/12/19 Historical Provider, magnesium oxide (MAG-OX) 400 mg (241.3 mg magnesium) tablet Take 400 mg by mouth daily . Historical Provider, melatonin 5 mg Tab Take 10 mg by mouth daily . Historical Provider, metFORMIN (GLUCOPHAGE-XR) 500 MG 24 hr tablet 1,000 mg 2 (two) times a day . 10/21/18 Historical Provider, multivitamin (THERAGRAN) per tablet Take 1 tablet by mouth daily . Historical Provider, NovoLIN R Regular U-100 Insuln 100 unit/mL injection INJECT 50 UNITS SUBCUTANEOUSLY 3 TIMES DAILY WITH MEALS WITH ADDITIONAL PER SLIDING SCALE 10/20/19 Historical Provider, ondansetron (ZOFRAN) 4 MG tablet Take 4 mg by mouth every 8 (eight) hours as needed for nausea . Historical Provider, rosuvastatin (CRESTOR) 20 MG tablet 20 mg daily . 09/17/16 Historical Provider, tamsulosin (FLOMAX) 0.4 mg capsule tamsulosin TAMSULOSIN HCL 0.4 MG CAPS One tablet by mouth daily TAMSULOSIN HCL [id number] Sebastián Dailey MD 06-15-2017 [facility] ([id number]) 06/15/17 Historical Provider, Current Scheduled Meds: aspirin 162 mg Oral Daily atorvastatin 40 mg Oral Nightly calcium carbonate 1,000 mg Oral Daily carvediloL 12.5 mg Oral BID cefTRIAXone 2,000 mg Intravenous Q24H docusate sodium 100 mg Oral Daily fenofibrate 160 mg Oral Daily with breakfast gabapentin 300 mg Oral Q8H LESLEY insulin glargine 35 Units Subcutaneous BID lispro insulin 0-15 Units Subcutaneous at bedtime insulin lispro 0-30 Units Subcutaneous TID AC levothyroxine 112 mcg Oral Daily magnesium oxide 400 mg Oral Daily melatonin 10 mg Oral at bedtime metFORMIN 1,000 mg Oral BID with meals tamsulosin 0.4 mg Oral After evening meal Review of Systems: The following system(s) were reviewed and pertinent findings noted: Review of Systems Constitutional: Positive for fever. Respiratory: Positive for shortness of breath. Gastrointestinal: Positive for constipation. Genitourinary: Positive for difficulty urinating. Musculoskeletal: Positive for gait problem and joint swelling. Skin: Positive for wound. All other systems reviewed and are negative. Physical Examination: Vital Signs: BP 107/69 (BP Location: Right arm, Patient Position: Sitting) Pulse 83 Temp 98.5 F (36.9 C) (Oral) Resp 14 SpO2 97% General Appearance: Alert, well appearing, and in no acute distress. HEENT: Head - Normocephalic, atraumatic. Eyes - ALEKS bilaterally and EOMI. Ears - normal external appearance, hearing intact. Nose - normal, no erythema. Throat - mucous membranes moist, pharynx without lesions. Neck: Supple, trachea midline. Cardiovascular: S1, S2 normal. No murmurs, rubs, clicks or gallops appreciated. No pedal edema. Respiratory: Lungs clear to auscultation, no wheezes, rales or rhonchi heard. Abdomen: Soft, non-tender, normal bowel sounds, non-distended, no masses or organomegaly appreciated. Neurological: Limited movement in lower ext. Numbness from knee down. Musculoskeletal: Right foot s/p surgery, swollen. Left foot swollen from surgery history Skin: Normal coloration and turgor. No rashes. External fixator with large incision, on right foot Psych: Alert, oriented x 3. Normal mood and affect. Laboratory and Additional Data Reviewed: Results/Medications Reviewed 12/09/19 4:07 PM: Results from last 7 days Lab Units 12/07/19 0455 12/05/19 0758 SODIUM mmol/L 138 139 POTASSIUM mmol/L 3.9 4.1 CHLORIDE mmol/L 104 104 BUN mg/dL 17 19 CREATININE mg/dL 0.86 0.86 GLUCOSE mg/dL 243* 223* CALCIUM mg/dL 9.4 9.1 Results from last 7 days Lab Units 12/07/19 0454 12/05/19 0758 WBC K/mcL 6.95 7.98 HGB g/dL 11.3* 11.4* HCT % 36.8* 36.3* PLT K/mcL 210 228 Results from last 7 days Lab Units 12/07/19 0455 ALK PHOS U/L 76 BILIRUBIN TOTAL mg/dL 0.4 TOTAL PROTEIN g/dL 6.6 ALTR U/L 40 AST U/L 28 Recent Results (from the past 24 hour(s)) POC Glucose Collection Time: 12/08/19 4:34 PM Result Value Ref Range Glucose 151 (H) 65 - 99 mg/dL POC Glucose Collection Time: 12/08/19 8:13 PM Result Value Ref Range Glucose 252 (H) 65 - 99 mg/dL POC Glucose Collection Time: 12/09/19 7:27 AM Result Value Ref Range Glucose 203 (H) 65 - 99 mg/dL POC Glucose Collection Time: 12/09/19 11:51 AM Result Value Ref Range Glucose 190 (H) 65 - 99 mg/dL CULTURES: Reviewed 12/09/19 4:07 PM Radiology/Imaging: Reviewed 12/09/19 4:07 PM Xr Chest 1 View Result Date: 11/23/2019 EXAMINATION: ONE-VIEW XR CHEST PA/AP, 11/23/2019 COMPARISON: Chest, 11/16/2019. HISTORY: Dx: E11.610 (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)) Injury/Trauma or Illness?:Illness/Other How long have you had these symptoms (acute/chronic)?:Acute Edema 1. Right arm PICC line in place with tip in superior vena cava. 2. No acute pulmonary disease. 3. Cardiomegaly with evidence of prior open heart surgery. 4. No acute osseous abnormality. 66. com/[employer] Workstation ID: [id number] Echocardiogram Complete W Contrast Result Date: 11/23/[address] [address] [place] [address] ECHOCARDIOGRAPHY REPORT - [facility] Name: DYLLAN HUERTAS Age: 59 years Date: 11/23/2019 Hospital #: [id number] : 1960 Room: [facility] Rec #: [id number] Sex: M Tech: Zoey Steel Ordering Physician: [id number] MARIA ISABEL MERRITT Height: 71.00 in Sys BP: 106 SHANNAN cc: , Weight: 285.00 Thalia BP: 68 Reading Physician: [id number] DALTON Rhythm: Sinus rhythm NARVAEZ/ Electronically Signed by: [id number] DALTON BSA: 2.45 m NARVAEZ on: 11/23/2019 Reason for Study: Heart murmur History: Conclusions: Moderate LV enlargement with LVH. Global systolic dysfunction with segmental features. LVEF 30% Elevated LV filling pressures RV is dilated with severe RV dysfunction Mild mitral annular calcification, mild thickening of the aortic valve without hemodynamically significant valvular disease There is a atrial level right to left shunt identified with saline contrast with free breathing and Valsalva most likely via PFO LVEF unchanged from to previous echo from 2017 Findings: 1. Quality: Technically fair study. Definity used to optimize study 2. Left Ventricle: Moderate LV enlargement. Mild LVH. Global systolic dysfunction with segmental features. Septal wall motion consistent with previous CABG, inferior akinesis. LVEF 30%. Elevated LV filling pressures. 3. Left Atrium: Normal size. 4. Right Ventricle: RV is dilated with severe RV dysfunction 5. Right Atrium: Normal size. 6. Aortic Valve: Trileaflet aortic valve. Mild leaflet thickening and focal calcification. No stenosis or insufficiency. 7. Mitral Valve: Mild mitral annular calcification, normal mitral valve morphology. No significant stenosis. Trivial insufficiency. 8. Tricuspid Valve: Normal tricuspid valve morphology. Trivial TR. No stenosis. RVSP estimated at 40 mmHg 9. Pulmonic Valve: Grossly normal. No significant stenosis or insufficiency on Doppler. 10. Aortic Root: Normal size and appearance of the aortic root. 11. Venous: Dilated with less than 50% compressibility with inspiration 12. Pericardium: No significant effusion identified. 13. Other: There is a right to left shunt identified with saline contrast with both free breathing and Valsalva most likely via PFO Patient Values (normal ranges in parenthesis) Moderate LV enlargement with LVH. Global systolic dysfunction with segmental features. LVEF 30% Xr Ankle Left 3+ Views (standard) Result Date: 12/07/2019 EXAMINATION: XR ANKLE LEFT 3+ VIEWS (STANDARD) 12/07/2019 11:46 am HISTORY: ORDERING SYSTEM PROVIDED HISTORY: evaluate extent of joint destruction from charcot joint., TECHNOLOGIST PROVIDED HISTORY: Illness/Other Reason for exam: left ankle evaluation for extent of joint destruction from charcot joint per doctor Cancer History: u Surgery, RadiationHistory: u Encounter Type: Initial Additional signs and symptoms: left ankle pain/tenderness ORDERING SYSTEM PROVIDED DIAGNOSIS CODES: A49.8 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 COMPARISON: None. FINDINGS/ 1. A new screw internally fixes the base of the 5th metatarsal to near anatomic alignment, however this screw is broken/fractured. 2. 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 Lateral subluxation of the 2nd through 5th metatarsal bases is again noted, as well as pes planus deformity. 3. Milder arthritis is noted in the tibiotalar joint and subtalar joint. 4. Large calcaneal enthesophytes are noted at the insertion sites of the plantar fascia and Achilles tendon. 5. No acute fracture, or other acute bony abnormality is seen. Workstation ID: [id number] Xr Ankle Left 3+ Views (standard) Result Date: 11/29/2019 EXAMINATION: XR ANKLE LEFT 3+ VIEWS (STANDARD) 11/20/2019 11:51 am HISTORY: ORDERING SYSTEM PROVIDED HISTORY: Rt. AP-Mortise Views of the Ankle WEIGHTBEARING, TECHNOLOGIST PROVIDED HISTORY: Illness/Other Reason for exam: Pre. Surgical Testing Weightbearing views for Charcot foot Cancer History: u Surgery, RadiationHistory: u Encounter Type: Initial Additional signs and symptoms: un ORDERING SYSTEM PROVIDED DIAGNOSIS CODES: COMPARISON: 05/19/2019 FINDINGS: There is no acute displaced fracture or dislocation. The ankle mortise is intact. The talar dome is intact. There is advanced midfoot collapse suggesting underlying Charcot joint. Distal Achilles enthesophyte and inferior calcaneal spur noted. Charcot midfoot without acute osseous abnormality. Workstation ID: [id number] Xr Chest Ap/pa And Lat Result Date: 11/16/2019 EXAMINATION: TWO-VIEW XR CHEST AP/PA AND LAT, 11/16/2019 COMPARISON: Chest, 03/29/2017. HISTORY: Dx: Z01.818 (Other specified pre-operative examination) Injury/Trauma or Illness?:Illness/Other How long have you had these symptoms (acute/chronic)?:Chronic Other specified pre-operative examination 1. No acute pulmonary disease. 2. Cardiomegaly, with evidence of prior open heart surgery. 3. Multilevel degenerative changes of the thoracic spine. [facility] Workstation ID: [id number] Xr Foot Right 2 Views Result Date: 11/20/2019 EXAMINATION: XR FOOT RIGHT 2 VIEWS 11/20/2019 9:51 am HISTORY: ORDERING SYSTEM PROVIDED HISTORY: AP/OBL foot, TECHNOLOGIST PROVIDED HISTORY: Illness/Other Reason for exam: Pre. Surgical Testing Weightbearing views for Charcot foot Cancer History: u Surgery, RadiationHistory: u Encounter Type: Initial Additional signs and symptoms: un ORDERING SYSTEM PROVIDED DIAGNOSIS CODES: COMPARISON: Right foot radiograph dated 04/28/2019. FINDINGS: Two views of the right foot were obtained. There are advanced changes of Charcot arthropathy throughout the right midfoot which appears similar compared to prior examination. There are postsurgical changes of resection of the right 2nd toe proximal phalangeal head. 1. Advanced changes of Charcot arthropathy throughout the right midfoot which appear unchanged compared to prior examination. [facility] Workstation ID: [id number] Xr Or Foot Rt 3+ Views Result Date: 12/02/2019 EXAMINATION: XR OR FOOT RIGHT 3+ VIEWS HISTORY: ORDERING SYSTEM PROVIDED HISTORY: Rt. 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 TECHNIQUE: Fluoro Dose Ka,r mGy: Fluoro dose in Ka,r mGy: 0.25 0.11 minutes fluoroscopy time was provided to Dr. Mora. 3 fluoroscopic images are submitted without immediate interpretation requested. FINDINGS: Images demonstrate external fixation device, as well as a long screw extending through the calcaneus and subtalar joint as well as large fixation pins which extend through the metatarsal bases and into the talus. There is severe disorganization and deformity of the tarsal bones and displacement of the metatarsals relative to the tarsal bones. Intraoperative fluoroscopy provided. Severe bony deformity of the foot as described. Please correlate with operative note. JRS/bd Workstation ID: [id number] Xr Or Foot Rt 3+ Views Result Date: 11/20/2019 EXAMINATION: XR OR FOOT RIGHT 3+ VIEWS HISTORY: ORDERING SYSTEM PROVIDED HISTORY: Rt. foot Charcot Correction, TECHNOLOGIST PROVIDED HISTORY: Illness/Other Reason for exam: RIGHT FOREFOOT RECONSTRUCTION Encounter Type: Initial Additional signs and symptoms: RIGHT FOOT PAIN Fluoro dose in mGy: 7.63 ORDERING SYSTEM PROVIDED DIAGNOSIS CODES: COMPARISON: 11/20/2019 TECHNIQUE: Fluoro Dose Ka,r mGy: Fluoro dose in Ka,r mGy: 7.63 Fluoroscopic time 5.2 minutes with 16 images saved Intraoperative fluoroscopy for localization during right foot and ankle reconstruction and fixation. Please see operative report for details. Workstation ID: [id number] @MRICT([id number])@ Associated Order(s): IP CONSULT TO ENTEROSTOMAL THERAPY Wound care will sign off. Dr Andrey Crowell and Dr Mora following patient. documented in this encounter Associated Order(s): IP CONSULT TO CARE MANAGEMENT COMPLEX DISCHARGE Date: 05/02/2020 Time: 2:10 PM Patient Name: Dyllan Huertas Date of : 1960 Sex: Male DATE: 05/02/2020 ASSESSMENT: 1. 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) Ambulatory referral to Home Health 2. 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 3. Acute osteomyelitis (HCC) 4. S/P ankle arthrodesis Ambulatory referral to Home Health 5. IDDM (insulin dependent diabetes mellitus) ([facility]) 6. Cellulitis, unspecified cellulitis site Ambulatory referral to Home Health PCP: Rohit Aguilar MD Primary Caregiver: Self TRANSPORTATION/PRESCRIPTION NEEDS: Do you have prescription coverage under your insurance carrier? Yes Do you take the medications prescribed? Yes In the past 12 months has lack of transportation kept you from medical appointments, getting medications, or getting things for daily living? No Do you have any difficulty paying for medications? No Who helps you manage sorting your medications? Self manage and sort PATIENTS PERCEPTION OF HEALTH STATUS: Independent, Alert/Oriented and Willing to Participate Do you have any cultural/spiritual connections or beliefs that would impact how we deliver your care? No PATIENT GOAL AFTER HOSPITALIZATION: To be able to walk again after surgery's completed with foot. FINANCIAL: Income Source: Government aid-disability Income/Expense Information: Income meets expenses Financial Resources: Medicare HOUSING/UTILITIES: Type of Residence: Private residence ADVANCED CARE PLANNING: ACTIVITIES OF DAILY LIVING PATIENT MAY NEED ASSISTANCE Grocery shopping and Driving or using public transport; CURRENT DRIVERS OF HEALTH emotional needs / support, ongoing goals of care and normal disease progression Interventions: Referral for Non-Skilled Care, Community Paramedicine or other home visit program and Supportive Encouragement RECOMMENDATION: Met with patient at bedside for discharge planning and high risk. Lives alone and has been nonweightbearing on right foot since November and has had [facility] recently for IV antibiotics at home. He has all the equipment he needs and gets transportation from all of his family members. Dr. Woodall has ordered IV Maxipime every 12 hours at home. She has sent OPAT orders. Called and left voice mail for [facility], put in notify and orders. Have not heard back at this time if they can accept. He states he has [employer] medicare but also has been getting financial assistance through [employer]. Anticipate discharge tomorrow after first dose. Patient Information Primary Caregiver: Self Income Information Income Source: Government aid Income/Expense Information: Income meets expenses Resources Financial Resources: Medicare Discharge Planning Living Arrangements: Alone Support Systems: Family members Assistance Needed: minimal Type of Residence: Private residence Prior to Admission Home Care Services: Yes Discharge Readiness Expected Discharge Date: 05/03/20 [facility] Disposition D/C Disposition: Home Health Care Services Related to Current Admission?: Yes Agency/Destination: [facility] Home Care Options Reviewed: Explained services/benefits Reason for Choice: Patient/Family preference Associated Order(s): IP CONSULT TO INFECTIOUS DISEASES CONSULT NOTE 05/02/2020 Patient Name: Dyllan Huertas Admit Date: MR #: [id number] : 1960 Physicians: Rohit Aguilar MD (Family); No ref. provider found (Referring) Assessment and Plan: Impression May 02, 2020 Right foot osteomyelitis with Enterobacter cloaca K and gram-negative Right foot severe Charcot now status post corrective surgery May 01, 2020 IDDM Chronic Schutle catheter Elevated creatinine of 1.5 Patient is on statin Recommend PICC line placement Cefepime 2 g IV every 12 Follow-up current OR cultures however with the extent of infection he had before it would be prudent to give prolonged IV for now hardware would be at risk for infection CBC CMP sed rate CRP blood cultures x2 half an hour apart UA MANAGER OF CASE MANAGEMENT to be sent today I have discussed with the hospitalist Chief Complaint/Reason for Visit: I am seeing this patient at the request of Dr. Emilie MD. I have reviewed the current hospital record, available laboratory, cardiology and imaging studies as well as available out patient records. History of Present Illness: Admission H&P by Ramírez Damico CNP on 05/01/2020: Dyllan Huertas is a 59 y.o. male with history of IDDM and neuropathy presents for status post right ankle arthrodesis. Dr. Mora performed the procedure today. Patient laid on bed without complaint. Patient is afebrile, vitals are stable. Patient will be on antibiotics and continue home meds. 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 doxycycline suppressive treatment for Enterobacter cloaca infection he also received Rocephin at one point eventually on May 01, 2020 patient underwent extensive surgery to the 7-hour surgery by Dr. Mora which was right foot arthrodesis subtalar arthrodesis right ankle which is corrective surgery for his Charcot and infectious disease consult for further help with antibiotic management Past medical surgical social family history nobody with boils all his details of previous history is in the notes He was a long-term suppressive treatment with doxycycline He is a chronic Schulte catheter because of nonweightbearing He had done home IV antibiotics in the past The Enterobacter cloaca he was [place] History: Past Medical History: Diagnosis Date Coronary artery disease Diabetes mellitus, type 2 (HCC) Hyperlipidemia Hypertension Hypothyroidism Peripheral neuropathy S/P foot surgery, right 12/09/2019 11/20/2019Right foot reconstruction surgery with external fixation 12/02/2019 Right foot I and D Sleep apnea, obstructive does not use CPAP Past Surgical History: Procedure Laterality Date APPENDECTOMY ARTHRODESIS SUBTALAR Right 05/01/2020 Procedure: RIGHT ANKLE ARTHRODESIS, SUBTALAR ARTHRODESIS RIGHT ANKLE, Bone [place] Graft From Right Fibula, Application of Splint; Surgeon: Alena Mora DPM; Location: Main OR; Service: Podiatry ARTHROPLASTY TOE Right 01/25/2019 Procedure: ARTHROPLASTY 2ND TOE RIGHT FOOT; Surgeon: Rosa M Robles DPM; Location: [facility] OR; Service: Podiatry CABG 2017 CARDIAC SURGERY 2017 CABG tripe bypass CLOSED REDUCTION PERCUTANEOUS PINNING LOWER EXTREMITY N/A 12/02/2019 Procedure: ADJUSTMENT of EXTERNAL FIXATOR; Surgeon: Alena Mora DPM; Location: Main OR; Service: Podiatry CYST REMOVED FROM CHEST N/A INCISION AND DRAINAGE FOOT AND ANKLE Right 12/02/2019 Procedure: RIGHT FOOT I&D; Surgeon: Alena Mora DPM; Location: [facility] OR; Service: Podiatry METAL IN LEFT LEFT WRIST AND LEFT 5TH TOE Left ORTHOPEDIC SURGERY RECONSTRUCTION FOOT CHARCOT Right 11/20/2019 Procedure: RIGHT FOOT RECONSTRUCTION WITH APPLICATION OF CIRCULAR STATIC EXTERNAL FIXATION; Surgeon: Alena Mora DPM; Location: [facility] OR; Service: Podiatry RT FOOT SURGERY Right TUMMY TUCK N/A Family History Problem Relation Age of Onset Heart disease Mother Heart disease Father Heart disease Brother Diabetes Sister Social History Socioeconomic History Marital status: Single Spouse name: Not on file Number of children: Not on file Years of education: Not on file Highest education level: Not on file Occupational History Not on file Social Needs Financial resource strain: Not on file Food insecurity Worry: Not on file Inability: Not on file Transportation needs Medical: Not on file Non-medical: Not on file Tobacco Use Smoking status: Never Smoker Smokeless tobacco: Never Used Substance and Sexual Activity Alcohol use: Yes Comment: occassionally mostly beer Drug use: Never Sexual activity: Not Currently Lifestyle Physical activity Days per week: Not on file Minutes per session: Not on file Stress: Not on file Relationships Social connections Talks on phone: Not on file Gets together: Not on file Attends scientologist service: Not on file Active member of club or organization: Not on file Attends meetings of clubs or organizations: Not on file Relationship status: Not on file Other Topics Concern Not on file Social History Narrative Not on file Allergy Information: I have reviewed the patient's allergies. Patient has no known allergies. Home Medications: Prior to Admission medications Medication Sig Start Date End Date Taking? Authorizing Provider calcium carbonate 400 mg Chew Chew and Swallow 1,000 mg daily . Yes Historical Provider, carvediloL (COREG) 12.5 MG tablet Take 1 (one) tablet (12.5 mg total) by mouth 2 (two) times a day . 12/19/19 05/01/20 Yes Helena Sheldon CNP docusate sodium (COLACE) 100 MG capsule Take 100 mg by mouth daily . Yes Historical Provider, FENOFIBRATE MICRONIZED ORAL Take 160 mg by mouth daily . 01/26/15 Yes Historical Provider, finasteride (PROSCAR) 5 mg tablet Take 2.5 mg by mouth Wednesday, Wednesday, Wednesday at bedtime . 04/16/15 Yes Historical Provider, gabapentin (NEURONTIN) 300 MG capsule gabapentin GABAPENTIN 300 MG CAPS One tablet by mouth daily GABAPENTIN [id number] Sebastián Dailey MD 06-15-2017 [facility] ([id number]) 06/15/17 Yes Historical Provider, insulin NPH (HumuLIN,NovoLIN) 100 unit/mL injection Take 30 units with breakfast, and 26 units at bedtime . Patient taking differently: Take 40 units with breakfast, and 36 units at bedtime . 12/19/19 Yes Helena Sheldon CNP insulin regular (HumuLIN R, NovoLIN R) 100 unit/mL injection Take 12 units three times daily before meals . 12/19/19 Yes Sera Bowden MD levothyroxine (SYNTHROID, LEVOTHROID) 112 MCG tablet once daily . 01/12/19 Yes Historical Provider, lisinopriL (PRINIVIL,ZESTRIL) 20 MG tablet Take 20 mg by mouth 2 (two) times a day . Yes Historical Provider, magnesium oxide (MAG-OX) 400 mg (241.3 mg magnesium) tablet Take 400 mg by mouth daily . Yes Historical Provider, melatonin 5 mg Tab Take 10 mg by mouth daily . Yes Historical Provider, metFORMIN (GLUCOPHAGE-XR) 500 MG 24 hr tablet 1,000 mg 2 (two) times a day . 10/21/18 Yes Historical Provider, multivitamin (THERAGRAN) per tablet Take 1 tablet by mouth daily . Yes Historical Provider, rosuvastatin (CRESTOR) 20 MG tablet 20 mg daily . 09/17/16 Yes Historical Provider, tamsulosin (FLOMAX) 0.4 mg capsule tamsulosin TAMSULOSIN HCL 0.4 MG CAPS One tablet by mouth daily TAMSULOSIN HCL [id number] Sebastián Dailey MD 06-15-2017 [facility] ([id number]) 06/15/17 Yes Historical Provider, alteplase (CATH AMANDO) 2 mg injection Instill 2mL into clotted IV line as needed for brake liner. May repeat as needed. Do not use on Peripheral or Midlines . 12/19/19 Maria Isabel Awad MD heparin, porcine, PF, 100 unit/mL Syrg For Open Ended Midline/PICC/CVC/Port: Flush with 5ml heparin as final flush after each use, weekly if not used. Use 3ml for Peripheral IV . 12/19/19 Maria Isabel Awad MD nitroGLYCERIN (NITROSTAT) 0.[address] 1 (one) tablet (0.4 mg total) under the tongue every 5 (five) minutes as needed for chest pain , if no relief after 3 doses call 911 . 12/19/19 01/18/20 Helena Sheldon, DE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 Current Scheduled Meds: atorvastatin 40 mg Oral Nightly carvediloL 12.5 mg Oral BID docusate sodium 100 mg Oral Daily enoxaparin (LOVENOX) injection 40 mg Subcutaneous Daily fenofibrate 160 mg Oral Daily with breakfast finasteride 2.5 mg Oral Once per day on Wed gabapentin 300 mg Oral Nightly lispro insulin 0-15 Units Subcutaneous at bedtime insulin lispro 0-30 Units Subcutaneous QAM AC insulin lispro 0-30 Units Subcutaneous Daily before lunch insulin lispro 0-30 Units Subcutaneous Before dinner insulin NPH 36 Units Subcutaneous at bedtime insulin NPH 40 Units Subcutaneous QAM levothyroxine 112 mcg Oral Daily lisinopriL 20 mg Oral BID metFORMIN 1,000 mg Oral BID oxyCODONE 5 mg Oral Q4H tamsulosin 0.4 mg Oral After evening meal Review of Systems: No fever chills nausea vomiting diarrhea denies any pain in the right ankle The following system(s) were reviewed and pertinent findings noted: Constitutional:No fever, no weight change, no night sweats Eyes:No visual changes ENT:No sore throat, no ear pain CV:No chest pain. No dypnea with exertion, no palpitations, no orthopnea. No ankle swelling and no symptoms of intermittent claudication. Resp:No cough, sputum, wheeze or hemoptysis. No pleurisy. GI:No abdominal pain.No nausea, vomiting or diarrhea. No rectal bleeding. :No frequency, urgency, dysuria or hematuria. Neuro:No headache, dizziness. No focal weakness or paresthesias. Integumentary:No skin rash MuscSkel:No joint pain, no swelling, no synovitis or joint effusion. Wound: Heme/lymphatic:No apparent lymphadenopathy. Psych:N/A Physical Examination: Vital Signs: Tmax: 98.6 Urine Output: 1200 Stool: not recorded BP 117/67 Pulse 75 Temp 97.8 F (36.6 C) (Oral) Resp 15 Ht 5' 11 Wt 115.4 kg (254 lb 6.6 oz) SpO2 96% BMI 35.48 kg/m Exam Findings: Constitutional: Awake alert answers all question HENT: Pupils reactive head: No oral candidiasis Eyes: No icterus Neck: Supple Cardiovascular: Heart S1-S2 2 by systolic murmur present no S3 Murmur Pulmonary/Chest: Clear Abdominal: Soft Musculoskeletal: No calf tenderness on the right leg he has an Zechariah bandage postop Neurological: Right great toe tip there is a blackish discoloration which will need to watch closely but he does have sensations difficult to move toes in his postop brace Skin no redness or cellulitis n prior to surgery by Dr. Abby Schulte: He is on long-term Schulte catheter because of nonweightbearing is being followed by Dr. Izquierdo IV: Right arm site looks other: He is now status post right ankle arthrodesis by Dr. Mora on 05/01/2020 I have personally reviewed the labs and results Test results Laboratory and Additional Data Reviewed: Current antibiotic received preop Ancef Previous Antibiotics: Doxycycline 100 mg PO daily until June 03, suppressive treatment Merrem 1,000 mg IV every 12 Hours Rocephin 2 gm IV every 24 Hours until 01/02/2020 Ancef 2,000 mg IV Results from last 7 days Lab Units 05/02/20 1127 05/01/20 1122 SODIUM mmol/L 140 142 POTASSIUM mmol/L 5.1 4.4 CHLORIDE mmol/L 106 110* BUN mg/dL 22 16 CREATININE mg/dL 1.51* 0.94 GLUCOSE mg/dL 262* 114* CALCIUM mg/dL 8.3* 9.1 Results from last 7 days Lab Units 05/02/20 0753 05/01/20 1122 04/26/20 1510 WBC K/mcL 8.37 -- 6.59 HGB g/dL 10.3* 12.6* 14.0 HCT % 30.8* 37.8* 42.4 PLT K/mcL 163 -- 230 Current Cultures: 04/28/2020 COVID-19, Molecular SARS-CoV-2 RNA: Not Detected. Final. Recent Cultures: 12/28/2019 - Right foot, aerobic culture: Normal [place] after 48 hours. 12/21/2019 - Right foot, aerobic - normal chalino after 48 hours 12/21/2019 - Right foot, anaerobic: No anaerobic growth at 2 days. 12/10/2019 Right Foot Wound Aerobic Culture: Normal Chalino After 48 Hours. Final 12/10/2019 Right foot wound, anaerobic culture: No anaerobic growth at 2 days. Final 12/08/2019 Urine Aerobic Culture: No Growth (<1,000 CFU/mL). Final. 12/07/2019 Urine Aerobic Culture on arrival to Nursing Rehab Unit: No Growth (<1,000 CFU/mL). Final. 12/02/2019 Right Foot Tissue Aerobic Culture: Normal Chal[place] After 48 Hours. Final. 12/02/2019 Right Foot Tissue AFB Culture: No Acid Fast Bacilli after 8 weeks. Final. 12/02/2019 Right Foot Tissue Anaerobic Culture: No Anaerobic Growth at 2 Days. Final. 12/02/2019 Right Foot Tissue Fungus Culture: No fungus isolated at 4 weeks. Final. 12/01/2019 Blood Culture #1: No Growth After 5 Days. Final. 12/01/2019 Blood Culture #2: No Growth After 5 Days. Final. 11/30/2019 Right Foot Wound Aerobic Culture: Normal Chalino After 48 Hours. Final. 11/21/2019 Left Leg Wound Aerobic Culture: Normal Chalino After 24 Hours. Final. 11/20/2019 Right Foot Tissue Aerobic Culture: Moderate Growth Enterobacter cloacae complex, S=Youssef Sensitive. Final. 11/20/2019 Right Foot Tissue Anaerobic Culture: No Anaerobic Growth at 2 Days. Final. 11/20/2019 Right Foot Bone Aerobic Culture: Light Growth Enterobacter Cloacae Complex, S=Youssef Sensitive. Final. 11/20/2019 Right Foot Bone Anaerobic Culture: No Anaerobic Growth at 2 Days. Final. 05/30/2019 Right Foot Tissue Aerobic Culture: Normal Chalino After 48 Hours. Final. 05/30/2019 Right Foot Tissue Anaerobic Culture: No Anaerobic Growth at 2 Days. Final. 03/23/2019 Right Foot Wound Aerobic Culture: Heavy Growth Raoultella [place], R=Ampicillin, S=Remainder of panel. 03/09/2019 Right Foot Wound Aerobic Culture: Normal Chalino After 48 Hours. Final. 02/09/2019 Right Foot Wound Aerobic Culture: Normal Chalino After 48 Hours. Final. 01/19/2019 Right Toe Two Wound Aerobic Culture: Heavy Growth Enterobacter Cloacae Complex, S=Youssef Sensitive. Final. Radiology: Right Ankle X-Ray 05/02/2020 ORDERED Right Tib/Fib X-Ray 05/01/2020 1. Fusion of the tibia, talus, and calcaneus. Alignment is anatomic. There has been resection of the lateral malleolus. Right Ankle X-Ray 05/01/2020 FINDINGS: Images are obtained with the right ankle in a splint which obscures bony detail. There is interval resection of the distal right fibula. Internal fixation of the right ankle is seen with intramedullary tommy seen in the right tibia traversing the tibiotalar joint. Additional smaller surgical screw is seen traversing the tibiotalar joint. Internal fixation of the calcaneus is also seen with metallic tommy. Ankle and calcaneal fractures demonstrate normal alignment. Large plantar calcaneal spur is seen. Advanced degenerative changes are seen about the mid foot. Mild diffuse bony demineralization is seen. IMPRESSION: Images are obtained with the right ankle with in a splint which obscures bony detail. Postsurgical changes are seen, as detailed above with normal alignment. Right Tib/Fib X-Ray 05/01/2020 Status post removal of the external fixator with no acute osseous abnormality in the right tibia or fibula or right ankle. Right Foot X-Ray 05/01/2020 1. Prior external fixator replacement. Extensive deformity in the midfoot related to prior surgical resection or Charcot changes. Continued subluxation between talus and navicular. 2. 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 Chest X-Ray 04/26/2020 ORDERED Right Foot X-Ray 11/20/2019 IMPRESSION: Intraoperative fluoroscopy for localization during right foot and ankle reconstruction and fixation. Please see operative report for details. Left Ankle X-Ray Ordered 11/20/2019 Right Tib/Fib,Right Foot X-Ray 02/16/2020 FINDINGS: There is extensive hardware from an external fixator present. This obscures fine bony detail.A single percutaneous pin is seen entering the plantar aspect of the foot through the calcaneus, talus, and entering the distal tibia. A 2nd slightly larger metallic tommy is seen entering the posterior calcaneus extending into the talus. Degenerative changes are present in the midfoot. There is soft tissue edema. IMPRESSION: Study is limited due to overlying external fixator. No significant change in alignment. NM White Cell Scan Spot Limited 03/08/2017 FINDINGS: A focal area of intense abnormal white blood cell migration is noted central plantar aspect of the right foot corresponding to the area of the wound demonstrated radiographically. No other focus of white blood cell migration abnormality is evident within the right or left foot. IMPRESSION: Focal area of abnormal white blood cell migration at the plantar aspect central right foot may be at the wound itself or may be involving the bone with associated fracture as demonstrated radiographically. Anatomic detail is insufficient for differentiation between the two. Renal U/S 03/07/2017 IMPRESSION: Severe thickening of the urinary bladder wall. This could be due to outlet obstruction with hypertrophy of the wall. If there is no such history, this should be evaluated with cystoscopy. CVPS: Lower Arterial Doppler: not on file Lower Venous Doppler: not on file 2D Echo 11/23/2019 Moderate LV enlargement with LVH. Global systolic dysfunction with segmental features. LVEF 30% Elevated LV filling pressures RV is dilated with severe RV dysfunction Mild mitral annular calcification, mild thickening of the aortic valve without hemodynamically significant valvular disease There is a atrial level right to left shunt identified with saline contrast with free breathing and Valsalva most likely via PFO LVEF unchanged from to previous echo from 2017 Surgeries: Please see above for surgical history Procedure: RIGHT ANKLE ARTHRODESIS, SUBTALAR ARTHRODESIS RIGHT ANKLE, Bone [place] Graft From Right Fibula, Application of Splint Date: 05/01/2020 Alena Mora DPM Procedure: RIGHT FOOT RECONSTRUCTION WITH APPLICATION OF CIRCULAR STATIC EXTERNAL FIXATION Date: 11/20/2019 Surgeon: Alena Mora DPM Procedure: ARTHROPLASTY 2ND TOE RIGHT FOOT Date: 01/25/2019 Surgeon: Rosa M Robles DPM Pathology: 12/02/2019 A. Soft tissue, Right Foot, excision: Non-specific ulcer. Physical Therapy PHYSICAL THERAPY EVALUATION NOTE Skilled Therapy Needs After Discharge Are Skilled Therapy Services Needed After Discharge: No Intensity of Skilled Therapy: (pt feels like he is at baseline and declines further therapy) DME Recommendation: Wheelchair(pt has) DME Rationale: Patient's condition prevents him/her from accomplishing ADL without recommended equipment, Patient's condition creates an increased risk of safety hazard without recommended equipment, Equipment required to maintain weight bearing status per physician orders Rehab Potential: Good, For goals Outcomes Measures Prior Function - Basic Mobility % Impaired: AM-PAC - Basic Mobility Raw Score: 16 Points AM-PAC - Basic Mobility % Impaired: 47.12% functionally impaired Physical Therapy Assessment History: RIGHT ANKLE ARTHRODESIS, SUBTALAR ARTHRODESIS RIGHT ANKLE Patient is a pleasant 59 year old male with history of charcot neuroarthropathy, diabetes with peripheral neuropathy. Patient has undergone stage one of right foot charcot reconstruction in November 2019. Patient has successfully healed and his hemoglobin A1c was reduced from 8.5 to 7.3. At this time, I discussed with him undergoing stage two of his right foot charcot reconstruction involving arthrodesis of the ankle and subtalar joints via intramedullary nail fixation. Patient has been cleared by his primary care physician and scaling machine operator The following factors influence the patient's participation in the PT plan of care: Personal Factors: Limited Compliance, Limited Baseline Mobility, Impulsive Behavior, Education Level, Age, Social Barriers, Body Habitus Environmental Factors: Lives alone The following co-morbidities (from this admission or prior) influence the patient's participation in this plan of care: DM. neuropathy, decreased sensation, NWB, decreased balance Number of History elements affecting this patient's PT plan of care: 1 to 2 Examination of Body Systems: The patient presents with: Musculoskeletal impairments: Strength, ROM, Pain, Functional Endurance Neurologic Impairments: Coordination, Balance, Sensation, Pain. These impairments result in limitations of . These impairments result in restrictions of . Number of Body Systems elements affecting this patient's PT plan of care: . Clinical Presentation: The patient's clinical presentation for this PT evaluation is as evidenced by current PT documentation. Activity Tolerance Therapy Precautions Orthotic Devices: Yes Lower Extremity: Cast / Postop Shoe Weight Bearing Status: X RLE: Non Wt bearing General Rehab Precautions: Fall risk Balance Bed Mobility Supine to Sit: Modified independence Sit to Supine: Modified [place] Skilled Intervention: use of HR and HOB elevated Transfers Sit to Stand: Stand by assistance Bed to Chair: Stand by assistance Stand Pivot Transfers: Stand by assistence Skilled Intervention: pt was quick and impulsive, but able to maintain NWB on right LE. Gait/Locomotion Gait Assistance: (unable to ambulate at this time) Exercise Home Living Type of Home: House Home Layout: One level, Able to live on main level with bedroom/bathroom, Ramped entrance Home Equipment: Wheeled Walker, Wheelchair-manual(kneeler) Prior Level of Function Level of [place]: Independent with ADLs and functional transfers, Independent with homemaking with wheelchair Lives With: Alone Receives Help From: Family ADL Assistance: Independent Homemaking Assistance: Independent Vocational: On disability Leisure: (target shooting, cooking, reading) Comments: pt was able to do his own laundry, sister did grocery shopping. was able to get in/out of truck and car. Pt has been at w/c level and performs transfers only Past Medical History: Diagnosis Date Coronary artery disease Diabetes mellitus, type 2 (HCC) Hyperlipidemia Hypertension Hypothyroidism Peripheral neuropathy S/P foot surgery, right 12/09/2019 11/20/2019Right foot reconstruction surgery with external fixation 12/02/2019 Right foot I and D Sleep apnea, obstructive does not use CPAP Past Surgical History: Procedure Laterality Date APPENDECTOMY ARTHROPLASTY TOE Right 01/25/2019 Procedure: ARTHROPLASTY 2ND TOE RIGHT FOOT; Surgeon: Rosa M Robles DPM; Location: [facility] OR; Service: Podiatry CABG 2017 CARDIAC SURGERY 2017 CABG tripe bypass CLOSED REDUCTION PERCUTANEOUS PINNING LOWER EXTREMITY N/A 12/02/2019 Procedure: ADJUSTMENT of EXTERNAL FIXATOR; Surgeon: Alena Mora DPM; Location: [facility] OR; Service: Podiatry CYST REMOVED FROM CHEST N/A INCISION AND DRAINAGE FOOT AND ANKLE Right 12/02/2019 Procedure: RIGHT FOOT I&D; Surgeon: Alena Mora DPM; Location: [facility] OR; Service: Podiatry METAL IN LEFT LEFT WRIST AND LEFT 5TH TOE Left ORTHOPEDIC SURGERY RECONSTRUCTION FOOT CHARCOT Right 11/20/2019 Procedure: RIGHT FOOT RECONSTRUCTION WITH APPLICATION OF CIRCULAR STATIC EXTERNAL FIXATION; Surgeon: Alena Mora DPM; Location: [facility] OR; Service: Podiatry RT FOOT SURGERY Right TUMMY TUCK N/A For complete objective data, detailed plan of care and patient education refer to: PT EVALUATION flow sheet, PT TREATMENT flow sheet, patient Plan of Care, Plan of Care progress note, and Patient Education. This note stands as the current Discharge Summary upon patient discharge from the hospital or completion of Physical Therapy Plan of Care. documented in this encounter Associated Order(s): IP CONSULT TO CARE MANAGEMENT DISCHARGE PLAN PROGRESS NOTE Date: 11/23/2019 Time: 12:36 PM Updated physician notes faxed to [facility]. Per consult received from Dr. Angelina Awad, patient will need transportation every morning to the wound clinic at 08:00 for follow up appointments. A message was left for Nelda with [facility] to ensure they are able to arrange transportation. Awaiting return call. Patient Name: Dyllan Huertas Date of : 1960 Sex: Male Discharge Readiness Expected Discharge Date: 11/17/19 Barriers to Discharge: Pre-certification [facility] Disposition D/C Disposition: [facility] Facility Agency/Destination: [facility] Estimated Length of Stay (ELOS): (42) PAS/RR: PAS Options Reviewed: List provided Reason for Choice: Patient/Family preference Associated Order(s): IP CONSULT TO INFECTIOUS DISEASES CONSULT NOTE 11/23/2019 Patient Name: Dyllan Huertas Admit Date: MR #: [id number] : 1960 Physicians: Rohit Aguilar MD (Family); No ref. provider found (Referring) Assessment and Plan: Impression Right foot ulcer Severe Charcot deformity status post surgical intervention Enterobacter cloaca infection and gram-negative infection see cultures below RaullTela which is a gram-negative Acute osteomyelitis bone culture on 11/20/2019+ for the same pathogen that was present in January 2019 is Enterobacter cloaca pansensitive RAJINDER none on chart Plan PICC line placement Rocephin 2 g IV every 24 hours last dose will be December 18 which is 4 weeks total CBC CMP sed rate CRP as baseline and every week on Mondays Send results to Dr. Andrey Awad Local care per Dr. Mora Follow-up every week on mornings with myself and Dr. Mora at 8 AM May need to consider longer antibiotics including 2 additional weeks of IV or prolonged p.o. antibiotics for 2 additional months to complete 3 months of treatment I have discussed the patient as well as Dr. Mora Orders have been written given to perinatal social worker Will get a baseline chest x-ray and 2D echo in case we need to consider HBO treatment in the future Chief Complaint/Reason for Visit: I am seeing this patient at the request of Dr. Estela MD. I have reviewed the current hospital record, available laboratory, cardiology and imaging studies as well as available out patient records. History of Present Illness: Admission H&P by Nancy Cueto CNP on 11/20/2019: Dyllan Huertas is a 59 y.o. y/o male presenting from OR with complaint of right foot wound. Patient was taken to surgery today for a right foot reconstruction with application of circular static external fixation. Patient has a chronic nonhealing ulceration on the plantar aspect of his right foot secondary to Charcot neuropathy osseous prominence. Patient has noted the wound for several months. The ulceration site failed to heal after several serial wound care debridement and management performance. No other pedal complaints. Patient does however have blisters to the left lower extremity which are weeping, mild redness to the left lower extremity. Patient denies any fever, chills, nausea, vomiting, constipation, diarrhea, chest pain, palpitations, shortness of breath, urinary urgency or frequency. 11/23/2019 Elderly white male with diabetes on disability since 2014 related to a Charcot foot and diabetes developed an ulcer in the beginning of 2018 was being followed by Dr. Robles at the office we have cultures from last year in January with Enterobacter and since then culture with gram-negative bacteria also was seen by Dr. Mora was found to have severe Charcot a corrective surgery was done with placement of an external fixator and infectious disease consult regarding further with antibiotic management his MRI in mid 2018 did not show osteo-no current MRI available With positive cultures then and now same bacteria we will need to treat for persistent infection with at least 4 weeks of IV antibiotic Allergies no known allergies to antibiotic Personal history single does not smoke to the regular alcohol does not use any street drugs Family to nobody with boils his sister lives next to him can assist with care if needed Pets none Is known to have insulin-dependent diabetes He has plate and screws in the wrist and left toe History: Past Medical History: Diagnosis Date Coronary artery disease Diabetes mellitus, type 2 (HCC) Hyperlipidemia Hypertension Hypothyroidism Peripheral neuropathy Sleep apnea, obstructive does not use CPAP Past Surgical History: Procedure Laterality Date APPENDECTOMY ARTHROPLASTY TOE Right 01/25/2019 Procedure: ARTHROPLASTY 2ND TOE RIGHT FOOT; Surgeon: Rosa M Robles DPM; Location: [facility] OR; Service: Podiatry CARDIAC SURGERY 2017 CABG tripe bypass CYST REMOVED FROM CHEST N/A METAL IN LEFT LEFT WRIST AND LEFT 5TH TOE Left ORTHOPEDIC SURGERY RECONSTRUCTION FOOT CHARCOT Right 11/20/2019 Procedure: RIGHT FOOT RECONSTRUCTION WITH APPLICATION OF CIRCULAR STATIC EXTERNAL FIXATION; Surgeon: Alena Mora DPM; Location: [facility] OR; Service: Podiatry RT FOOT SURGERY Right SHARMILA JEONG N/A Family History Problem Relation Age of Onset Heart disease Mother Heart disease Father Heart disease Brother Social History Socioeconomic History Marital status: Single Spouse name: Not on file Number of children: Not on file Years of education: Not on file Highest education level: Not on file Occupational History Not on file Social Needs Financial resource strain: Not on file Food insecurity Worry: Not on file Inability: Not on file Transportation needs Medical: Not on file Non-medical: Not on file Tobacco Use Smoking status: Never Smoker Smokeless tobacco: Never Used Substance and Sexual Activity Alcohol use: Yes Comment: occassionally Drug use: Never Sexual activity: Not Currently Lifestyle Physical activity Days per week: Not on file Minutes per session: Not on file Stress: Not on file Relationships Social connections Talks on phone: Not on file Gets together: Not on file Attends scientologist service: Not on file Active member of club or organization: Not on file Attends meetings of clubs or organizations: Not on file Relationship status: Not on file Other Topics Concern Not on file Social History Narrative Not on file Allergy Information: I have reviewed the patient's allergies. Patient has no known allergies. Home Medications: Prior to Admission medications Medication Sig Start Date End Date Taking? Authorizing Provider calcium carbonate 400 mg Chew Chew and Swallow 1,000 mg daily . Yes Historical Provider, carvedilol (COREG) 6.25 MG tablet 12.5 mg every 12 (twelve) hours . 02/04/17 Yes Historical Provider, docusate sodium (COLACE) 100 MG capsule Take 100 mg by mouth daily . Yes Historical Provider, FENOFIBRATE MICRONIZED ORAL Take 160 mg by mouth daily . 01/26/15 Yes Historical Provider, gabapentin (NEURONTIN) 300 MG capsule gabapentin GABAPENTIN 300 MG CAPS One tablet by mouth daily GABAPENTIN [id number] Sebastián Dailey MD 06-15-2017 [facility] ([id number]) 06/15/17 Yes Historical Provider, insulin glargine (LANTUS) 100 unit/mL (3 mL) InPn Inject 50 Units under the skin nightly . Yes Historical Provider, levothyroxine (SYNTHROID, LEVOTHROID) 112 MCG tablet once daily . 01/12/19 Yes Historical Provider, lisinopril (PRINIVIL,ZESTRIL) 20 MG tablet 20 mg 2 (two) times a day . 12/30/18 Yes Historical Provider, magnesium oxide (MAG-OX) 400 mg (241.3 mg magnesium) tablet Take 400 mg by mouth daily . Yes Historical Provider, melatonin 5 mg Tab Take 10 mg by mouth daily . Yes Historical Provider, metFORMIN (GLUCOPHAGE-XR) 500 MG 24 hr tablet 1,000 mg 2 (two) times a day . 10/21/18 Yes Historical Provider, multivitamin (THERAGRAN) per tablet Take 1 tablet by mouth daily . Yes Historical Provider, NovoLIN R Regular U-100 Insuln 100 unit/mL injection INJECT 50 UNITS SUBCUTANEOUSLY 3 TIMES DAILY WITH MEALS WITH ADDITIONAL PER SLIDING SCALE 10/20/19 Yes Historical Provider, omega-3 fatty acids/fish oil (fish oil-omega-3 fatty acids) 300-1,000 mg capsule Take 2 g by mouth daily . Yes Historical Provider, rosuvastatin (CRESTOR) 20 MG tablet 20 mg daily . 09/17/16 Yes Historical Provider, tamsulosin (FLOMAX) 0.4 mg capsule tamsulosin TAMSULOSIN HCL 0.4 MG CAPS One tablet by mouth daily TAMSULOSIN HCL [id number] Sebastián Dailey MD 06-15-2017 [facility] ([id number]) 06/15/17 Yes Historical Provider, aspirin 81 MG EC tablet Take 162 mg by mouth daily . Historical Provider, finasteride (PROSCAR) 5 mg tablet Take 2.5 mg by mouth every night at bedtime Wednesday,WED,WED . 04/16/15 Historical Provider, Current Scheduled Meds: aspirin 162 mg Oral Daily atorvastatin 40 mg Oral Nightly calcium carbonate 1,000 mg Oral Daily carvediloL 12.5 mg Oral Q12H cefTRIAXone (ROCEPHIN) IVPB 2,000 mg Intravenous Q24H docusate sodium 100 mg Oral Daily fenofibrate 160 mg Oral Daily with breakfast finasteride 2.5 mg Oral Once per day on Wed gabapentin 300 mg Oral Nightly heparin (porcine) 5,000 Units Subcutaneous Q8H LESLEY insulin glargine 50 Units Subcutaneous Nightly lispro insulin 0-15 Units Subcutaneous at bedtime insulin lispro 0-30 Units Subcutaneous TID AC insulin regular 50 Units Subcutaneous TID AC levothyroxine 112 mcg Oral Daily lisinopriL 20 mg Oral BID magnesium oxide 400 mg Oral Daily melatonin 10 mg Oral Nightly metFORMIN 1,000 mg Oral BID multivitamin 1 tablet Oral Daily sodium chloride (PF) 10 mL Intracatheter Q8H LESLEY tamsulosin 0.4 mg Oral After evening meal Review of Systems: No fever chills nausea vomiting diarrhea no rash no itching He has had this ulcer since early 2018 we see a culture in January 2019 with Enterobacter The following system(s) were reviewed and pertinent findings noted: Constitutional:No fever, no weight change, no night sweats Eyes:No visual changes ENT:No sore throat, no ear pain CV:No chest pain. No dypnea with exertion, no palpitations, no orthopnea. No ankle swelling and no symptoms of intermittent claudication. Resp:No cough, sputum, wheeze or hemoptysis. No pleurisy. GI:No abdominal pain.No nausea, vomiting or diarrhea. No rectal bleeding. :No frequency, urgency, dysuria or hematuria. Neuro:No headache, dizziness. No focal weakness or paresthesias. Integumentary:No skin rash MuscSkel:No joint pain, no swelling, no synovitis or joint effusion. Wound: Heme/lymphatic:No apparent lymphadenopathy. Psych:N/A Physical Examination: Vital Signs: Tmax: 99.1 Urine Output: 500 Stool: not recorded BP 106/68 (BP Location: Right arm, Patient Position: Lying) Pulse 89 Temp 98 F (36.7 C) (Oral) Resp 14 Ht 5' 11 Wt 129.4 kg (285 lb 4.4 oz) SpO2 93% BMI 39.79 kg/m Exam Findings: Constitutional: HENT: Pupils reactive head: No oral candidiasis Eyes: No icterus Neck: Supple Cardiovascular: Heart S1-S2 2 by systolic murmur present no S3 Murmur Pulmonary/Chest: Clear Abdominal: Soft Musculoskeletal: No calf tenderness on the right leg Neurological: Has diabetic neuropathy with Charcot is able to wiggle the toes Skin: Cannot evaluate for cellulitis of the foot Wound: Preop pictures from media reviewed Wound (Outpatient Only) 03/31/19 Foot Anterior;Right;Plantar (Active) Schulte: Bard Schulte catheter IV: Peripheral IV site in the hand looks good will need a midline or PICC line Other: External fixator in place a could not palpate per pulses Current Antibiotics: None at this time Previous Antibiotics: Ancef 2,000 mg IV every 8 Hours Pre/Post Procedure I have personally reviewed the labs and results Test results Laboratory and Additional Data Reviewed: Results from last 7 days Lab Units 11/23/19 0407 11/22/19 0449 11/21/19 0643 11/20/19 1035 SODIUM mmol/L 138 139 139 142 POTASSIUM mmol/L 4.6 4.2 4.9 4.4 CHLORIDE mmol/L 106 105 107 108 BUN mg/dL 35* 25 28* 24 CREATININE mg/dL 1.31* 1.20 1.38* 1.11 GLUCOSE mg/dL 111* 180* 229* 119* CALCIUM mg/dL -- -- 8.4 9.6 Results from last 7 days Lab Units 11/23/19 0407 11/22/19 0449 11/21/19 0643 WBC K/mcL 8.29 11.19* 8.73 HGB g/dL 9.9* 11.2* 11.7* HCT % 32.8* 35.9* 36.9* PLT K/mcL 132* 155 203 Current Cultures: 11/21/2019 Left Leg Wound Aerobic Culture: Normal [place] After 24 Hours. Preliminary. 11/20/2019 Right Foot Tissue Aerobic Culture: Moderate Growth Enterobacter cloacae complex, S=Youssef Sensitive. Final. 11/20/2019 Right Foot Tissue Anaerobic Culture: No Anaerobic Growth at 2 Days. Final. 11/20/2019 Right Foot Bone Aerobic Culture: Light Growth Enterobacter Cloacae Complex, S=Youssef Sensitive. Final. 11/20/2019 Right Foot Bone Anaerobic Culture: No Anaerobic Growth at 2 Days. Final. Recent Cultures: 05/30/2019 Right Foot Tissue Aerobic Culture: Normal Chalino After 48 Hours. Final. 05/30/2019 Right Foot Tissue Anaerobic Culture: No Anaerobic Growth at 2 Days. Final. 03/23/2019 Right Foot Wound Aerobic Culture: Heavy Growth Raoultella [place], R=Ampicillin, S=Remainder of panel. 03/09/2019 Right Foot Wound Aerobic Culture: Normal Chalino After 48 Hours. Final. 02/09/2019 Right Foot Wound Aerobic Culture: Normal Chalino After 48 Hours. Final. 01/19/2019 Right Toe Two Wound Aerobic Culture: Heavy Growth Enterobacter Cloacae Complex, S=Youssef Sensitive. Final. Radiology: Right Foot X-Ray 11/20/2019 IMPRESSION: Intraoperative fluoroscopy for localization during right foot and ankle reconstruction and fixation. Please see operative report for details. Left Ankle X-Ray Ordered 11/20/2019 Right Foot X-Ray 11/20/2019 FINDINGS: Two views of the right foot were obtained. There are advanced changes of Charcot arthropathy throughout the right midfoot which appears similar compared to prior examination. There are postsurgical changes of resection of the right 2nd toe proximal phalangeal head. IMPRESSION: 1. Advanced changes of Charcot arthropathy throughout the right midfoot which appear unchanged compared to prior examination. Chest AP/PA X-Ray 11/16/2019 1. No acute pulmonary disease. 2. Cardiomegaly, with evidence of prior open heart surgery. 3. Multilevel degenerative changes of the thoracic spine. MR Right Foot 05/19/2019 1. There is a superficial soft tissue ulcer again seen along the plantar aspect of the midfoot, but there is no evidence of abscess or osteomyelitis in this region. 2. Stable appearance of the sequela of severe neuropathic arthropathy of the midfoot with collapse of the midfoot again seen resulting in a rocker bottom deformity. 3. A moderate amount of diffuse subcutaneous edema along the dorsum of the foot may be due to reactive edema or a cellulitis, but this is nonspecific. Right Foot X-Ray 04/28/2019 1. Soft tissue irregularity involving the plantar aspect of the foot likely representing the reported ulcer. No bony destruction to suggest osteomyelitis. 2. No evidence of radiopaque foreign body. 3. Stable deformity and degenerative changes involving the midfoot. Findings are consistent with Charcot joint. NM White Cell Scan Spot Limited 03/08/2017 FINDINGS: A focal area of intense abnormal white blood cell migration is noted central plantar aspect of the right foot corresponding to the area of the wound demonstrated radiographically. No other focus of white blood cell migration abnormality is evident within the right or left foot. IMPRESSION: Focal area of abnormal white blood cell migration at the plantar aspect central right foot may be at the wound itself or may be involving the bone with associated fracture as demonstrated radiographically. Anatomic detail is insufficient for differentiation between the two. Renal U/S 03/07/2017 IMPRESSION: Severe thickening of the urinary bladder wall. This could be due to outlet obstruction with hypertrophy of the wall. If there is no such history, this should be evaluated with cystoscopy. CVPS: Arterial Doppler: not on file Venous Doppler: not on file 2D Echo: not on file Surgeries: Please see above for surgical history Procedure: RIGHT FOOT RECONSTRUCTION WITH APPLICATION OF CIRCULAR STATIC EXTERNAL FIXATION Date: 11/20/2019 Surgeon: Alena Sabry Abby, DPM Detail reviewed in her note Procedure: ARTHROPLASTY 2ND TOE RIGHT FOOT Date: 01/25/2019 Surgeon: Rosa M Robles DPM Pathology: not on file Associated Order(s): IP CONSULT TO PODIATRY HPI: Patient is a pleasant 59-year-old male who is admitted to the hospitalist service status post right foot Charcot reconstruction involving midfoot wedge resection and application of circular static external fixation (date of surgery 11/20/2019). Patient has tolerated surgery and anesthesia well. He was admitted from PACU to inpatient floor for overnight observation, IV antibiotics, pain control, evaluation by physical therapy and Occupational Therapy. Patient was seen sitting on a chair with his right leg elevated. He states that his pain is well controlled. No new pedal complaints at this time.Denies fevers, chills, nausea, vomiting, chest pain, shortness of breath, or any other constitutional symptoms. Past Medical History: Diagnosis Date Coronary artery disease Diabetes mellitus, type 2 (HCC) Hyperlipidemia Hypertension Hypothyroidism Peripheral neuropathy Sleep apnea, obstructive does not use CPAP Past Surgical History: Procedure Laterality Date APPENDECTOMY ARTHROPLASTY TOE Right 01/25/2019 Procedure: ARTHROPLASTY 2ND TOE RIGHT FOOT; Surgeon: Rosa M Robles DPM; Location: [facility] [place]; Service: Podiatry CARDIAC SURGERY 2016 CABG tripe bypass CYST REMOVED FROM CHEST N/A METAL IN LEFT LEFT WRIST AND LEFT 5TH TOE Left ORTHOPEDIC SURGERY RT FOOT SURGERY Right TUMMY TUCK N/A Social History Socioeconomic History Marital status: Single Spouse name: Not on file Number of children: Not on file Years of education: Not on file Highest education level: Not on file Occupational History Not on file Social Needs Financial resource strain: Not on file Food insecurity Worry: Not on file Inability: Not on file Transportation needs Medical: Not on file Non-medical: Not on file Tobacco Use Smoking status: Never Smoker Smokeless tobacco: Never Used Substance and Sexual Activity Alcohol use: Yes Comment: occassionally Drug use: Never Sexual activity: Not Currently Lifestyle Physical activity Days per week: Not on file Minutes per session: Not on file Stress: Not on file Relationships Social connections Talks on phone: Not on file Gets together: Not on file Attends scientologist service: Not on file Active member of club or organization: Not on file Attends meetings of clubs or organizations: Not on file Relationship status: Not on file Other Topics Concern Not on file Social History Narrative Not on file Physical Exam: DP and PT pulses are weakly palpable 1/4 secondary to +1 pitting edema as expected postoperatively. Cap refill time is brisk to distal digits. Skin temperature is warm to warm from proximal tibial tuberosity to distal digits. A circular static external fixation is intact to the right lower extremity. Pins and wire are noted without any erythema, or edema noted. Sanguinous drainage noted as expected postoperatively. Gross sensation is intact. Protective sensation is absent. Patient is able to wiggle digits. Compartments are soft and compressible. No calf pain. Assessment: Postop day #1 status post right foot Charcot reconstruction (date of surgery 11/20/2019) - Doing well Plan: Patient was seen and evaluated. Discussed all clinical and radiographic findings. Patient is doing well at this time and pain is well controlled. Patient was seen by physical therapy and Occupational Therapy with recommendation for a rehab facility. I agree with the recommendation. Patient is to remain nonweightbearing to the right lower extremity at all times. Do not remove dressing. Continue IV antibiotics. Awaiting final bone culture results Continue DVT prophylaxis Maintain the right lower extremity elevated. All questions were answered to satisfaction Will return for evaluation tomorrow Please call with any questions or concerns, Alena Mora DPM [phone] Occupational Therapy OCCUPATIONAL THERAPY EVALUATION NOTE Dx: Non-healing chronic ulcer, R foot Sx: Right foot reconstsruction with application of circular static external fixation on 11/20/2019 Skilled Therapy Needs After Discharge Anticipate Resolution of Current Assessment Limitations Including: Pain, Mechanical Barriers Are Skilled Therapy Services Needed After Discharge: Yes Intensity of Skilled Therapy: 5 to 7 days per week Anticipated Duration of Skilled Therapy: Duration 10 - 30 days DME Recommendation: Adaptive equipment kit DME Rationale: Patient's condition creates an increased risk of safety hazard without recommended equipment, Equipment required to maintain weight bearing status per physician orders Rehab Potential: Good Outcomes Measures Prior Function Daily Activity: Raw Score: 24 Prior Function Daily Activity % Impaired: 0% functionally impaired AM-PAC Daily Activity: Raw Score: 15 AM-PAC Daily Activity % Impaired: 56.46% functionally impaired Occupational Therapy Assessment The patient presents with musculoskeletal impairment(s) in generalized debility right lower extremity which create performance deficits including strength, range of motion, balance, activity tolerance and pain, problem solving, insight and safety, and impulsivity and knowledge deficit. These performance impairments limit participation in LE dressing, bathing, toileting, home management and functional mobility in the chosen occupational roles of premorbid level individual. The patient's co morbidities do affect patient performance in the above activities and roles. The patient's home setup is a bottler and limitations of family/caregiver support is a barrier for return to prior level of function. The patient's compliance is a bottler and awareness of own capacity and performance is a bottler to return to prior level of function. During the assessment, significant modification of task was required and several treatment options were identified in the plan of care. This consultation required extensive review of the medical and therapy history. Activity Tolerance Activity Tolerance: Tolerates 10 - 20 min activity with multiple rests Patient currently on 2 liters oxygen NC; does not use at home. Therapy Precautions Orthotic Devices: Yes Lower Extremity: External Fixator, Right Weight Bearing Status: X RLE: Non Wt bearing General Rehab Precautions: Fall risk Cognition Overall Cognitive Status: Within Functional Limits Arousal/Alertness: Appropriate responses to stimuli Orientation Level: Oriented X4 Executive functioning: Insight, Min impairment Safety Judgment: Good awareness of safety precautions Problem Solving: Assistance required to identify errors made, Assistance required to generate solutions Attention: Attends to distracted environment Hearing Status: WFL Social Interaction: WFL UE Assessment B UE AROM WFL, with exception of initial limited R shoulder flexion to 90 degrees, but with several reps of INTEGRATED CIRCUIT FABRICATOR, was able to take to full range against gravity. Overall strength grossly 4 to 5/5 throughout. ADL/IADL Feeding: Modified independence Grooming : Stand by assistance UE Dressing: (CR - SBA seated.) LE Dressing: Max Toileting : (Declined needs; has urinal.) Bed Mobility Supine to Sit: Min Sit to Supine: (Remained up in chair. ) Functional Transfers Sit to Stand: Mod, Max, Two person assist Bed to Chair Transfers: Max, Two person assist Home Living Type of Home: House Home Layout: One level, Ramped entrance Bathroom Shower/Tub: Tub/shower unit Bathroom Toilet: Standard Bathroom Equipment: Tub transfer bench, Hand-held shower Bathroom Accessibility: Not accessible Home Equipment: Wheeled Walker, Mirror Installer, Wheelchair-manual(Kneeling scooter, surgical shoe and boot.) Additional Comments: W/C does not have elevating leg rests per pt. Prior Level of Function Level of [place]: Independent with ADLs and functional transfers, Independent with homemaking with ambulation Lives With: Alone Receives Help From: Family ADL Assistance: Independent Homemaking Assistance: Independent Comments: Primarily in w/c; was to be NWBing on the RLE, but unable to maintain, when going into the bathroom; reports that the doctor was aware and okay with it. Drives on occasion. Was using push cart or motorized cart at the store, going ~1x/month. Sister lives next door. Past Medical History: Diagnosis Date Coronary artery disease Diabetes mellitus, type 2 (HCC) Hyperlipidemia Hypertension Hypothyroidism Peripheral neuropathy Sleep apnea, obstructive does not use CPAP Past Surgical History: Procedure Laterality Date APPENDECTOMY ARTHROPLASTY TOE Right 01/25/2019 Procedure: ARTHROPLASTY 2ND TOE RIGHT FOOT; Surgeon: Rosa M Robles DPM; Location: [facility] – [place]; Service: Podiatry CARDIAC SURGERY 2016 CABG tripe bypass CYST REMOVED FROM CHEST N/A METAL IN LEFT LEFT WRIST AND LEFT 5TH TOE Left ORTHOPEDIC SURGERY RT FOOT SURGERY Right TUMMY TUCK N/A OCCUPATIONAL THERAPY TREATMENT NOTE Total Treatment Time (Total Session Time): 23 Minutes Timed Code Treatment Minutes: 10 Minutes Cognitive Skills Development Skilled Intervention: Followed all commands. Self-Care / Home Management ADL/IADL Skilled Intervention: Min A for doning of L sock while seated; brief discussion regarding benefits of AE for such with patient voicing interest. CR - will be dependent for donning underwear/pants d/t NWBing on the RLE and inability to stand without assest. Grooming tasks completed while seated. Therapeutic Activities Bed Mobility Skilled Intervention: HOB up and increased time for supine to EOB, with use of bedrail. Functional Transfers Skilled Intervention: Patient required significant assist for sit to stand at walker while maintaining NWBing on the RLE; patient struggled to transfer support from chair arms to walker. Max A for safety with transfer, given assist with walker managment at well. Patient able to maintain NWBing for the most part, but did appear to rest it on the floor towards end of transfer. For complete objective data, detailed plan of care and patient education refer to: OT EVALUATION flow sheet, OT TREATMENT flow sheet, patient Plan of Care, Plan of Care progress note, and Patient Education. This note stands as the current Discharge Summary upon patient discharge from the hospital or completion of Occupational Therapy Plan of Care. Physical Therapy PHYSICAL THERAPY EVALUATION NOTE Skilled Therapy Needs After Discharge Anticipate Resolution of Current Assessment Limitations Including: Pain Are Skilled Therapy Services Needed After Discharge: Yes Intensity of Skilled Therapy: 5 to 7 days per week Anticipated Duration of Skilled Therapy: Duration 10 - 30 days DME Recommendation: Wheeled walker DME Rationale: Patient's condition creates an increased risk of safety hazard without recommended equipment Rehab Potential: Good Outcomes Measures Prior Function - Basic Mobility Raw Score: 23 Points Prior Function - Basic Mobility % Impaired: 16.55% functionally impaired AM-PAC - Basic Mobility Raw Score: 10 Points AM-PAC - Basic Mobility % Impaired: 71.92% functionally impaired Physical Therapy Assessment History: Dx: R foot ulcer, 11/20 R foot reconstruction with external fixator, NWB R LE The following factors influence the patient's participation in the PT plan of care: Personal factors: limited compliance, limited baseline mobility, decreased insight and body habitus Environmental factors: lives alone The following co-morbidities (from this admission or prior) influence the patient's participation in this plan of care: JAYDEN, peripheral neuropathy, hypothyroidism, HTN, HLD, DMII, CAD Number of History elements affecting this patient's PT plan of care: 1-2 Examination of Body Systems: The patient presents with impairments of strength, ROM, pain, functional endurance, active wound, tissue healing. These impairments result in limitations of gait, functional transfers, safety, safety awareness and activity tolerance. These impairments result in restrictions of household mobility, community mobility and leisure activities. Number of Body Systems elements affecting this patient's PT plan of care: 3 or more Clinical Presentation: The patient's clinical presentation for this PT evaluation is unstable as evidenced by current PT documentation. Activity Tolerance Activity Tolerance: Tolerates 30 min acitivty with multiple rests Therapy Precautions Orthotic Devices: Yes Lower Extremity: External Fixator, Right Weight Bearing Status: X RLE: Non Wt bearing General Rehab Precautions: Fall risk Balance Sitting Balance - Static: Supports self independantly with both upper extremities Standing Balance - Static: Performs 25% or less sitting activity Bed Mobility Supine to Sit: Min Skilled Intervention: Pt required min A to trunk to scoot to EOB using HR and with HOB elevated Transfers Sit to Stand: Two person assist, Max, Mod Bed to Chair: Two person assist, Max Stand Pivot Transfers: Two person assist, Max [place]: Wheeled walker Skilled Intervention: Pt required mod and max A x2 person with 2WW to stand with increased time to transition hands from bed to walker but able to maintain NWB R LE. Pt pivoted to chair with 2 person max A with pt demonstrating difficulty maintaining upright posture and requiring chair to be brought up behind to sit. Pt with instability throughout mobility and requiring assist to stabilize walker. Pt performed 3 STS transfers total. Gait/Locomotion Skilled Intervention: NT d/t safety concerns. Pt extensively educated on precautions, discharge planning, and mobility through verbal instruction and demonstration. Pt demonstrated understanding of education. Home Living Type of Home: House Home Layout: One level, Ramped entrance Bathroom Shower/Tub: Tub/shower unit Bathroom Toilet: Standard Bathroom Equipment: Tub transfer bench, Hand-held shower Bathroom Accessibility: Not accessible Home Equipment: Wheeled Walker, Mirror Installer, Wheelchair-manual(Kneeling scooter, surgical shoe and boot.) Additional Comments: W/C does not have elevating leg rests per pt Prior Level of Function Level of [place]: Independent with ADLs and functional transfers, Independent with homemaking with ambulation Lives With: Alone Receives Help From: Family ADL Assistance: Independent Homemaking Assistance: Independent Comments: Primarily in w/c; was to be NWBing on the RLE, but unable to maintain, when going into the bathroom; reports that the doctor was aware and okay with it. Drives on occasion. Was using push cart or motorized cart at the store, going ~1x/month. Sister lives next door. Past Medical History: Diagnosis Date Coronary artery disease Diabetes mellitus, type 2 (HCC) Hyperlipidemia Hypertension Hypothyroidism Peripheral neuropathy Sleep apnea, obstructive does not use CPAP Past Surgical History: Procedure Laterality Date APPENDECTOMY ARTHROPLASTY TOE Right 01/25/2019 Procedure: ARTHROPLASTY 2ND TOE RIGHT FOOT; Surgeon: Rosa M Robles DPM; Location: [facility] OR; Service: Podiatry CARDIAC SURGERY 2016 CABG tripe bypass CYST REMOVED FROM CHEST N/A METAL IN LEFT LEFT WRIST AND LEFT 5TH TOE Left ORTHOPEDIC SURGERY RT FOOT SURGERY Right SHARMILA JEONG N/A For complete objective data, detailed plan of care and patient education refer to: PT EVALUATION flow sheet, PT TREATMENT flow sheet, patient Plan of Care, Plan of Care progress note, and Patient Education. This note stands as the current Discharge Summary upon patient discharge from the hospital or completion of Physical Therapy Plan of Care. documented in this encounter Pre-Procedure Instructions - Jose Wang RN - 01/20/2019 10:34 AM EDTPre- Procedure Instructions - Lyndsey Gonzáles RN - 11/10/2019 2:47 PM EST Miscellaneous Notes (unrecog nized section and content) Preoperative Medication Instructions In preparation for surgery please continue all of your current medications with the following changes: Dyllan Huertas Home Medication Instructions Prior to Surgery RAKEL:[id number] Printed on:01/20/19 1034 Medication Information Take last dose on Take the morning of surgery Comment(s) aspirin 81 MG EC tablet Take 162 mg by mouth daily . carvedilol (COREG) 6.25 MG tablet 1 Unspecified every 12 (twelve) hours . fenofibrate micronized (LOFIBRA) 200 MG capsule Take 200 mg by mouth . finasteride (PROSCAR) 5 mg tablet Take 2.5 mg by mouth every night at bedtime Wednesday,WED,WED . gabapentin (NEURONTIN) 300 MG capsule gabapentin GABAPENTIN 300 MG CAPS One tablet by mouth daily GABAPENTIN [id number] Sebsatián Dailey MD 06-15-2017 [facility] ([id number]) insulin aspart U-100 (NovoLOG Flexpen U-100 Insulin) 100 unit/mL (3 mL) InPn Sliding scale starting at 10 units at the most 20 units levothyroxine (SYNTHROID, LEVOTHROID) 112 MCG tablet once daily . lisinopril (PRINIVIL,ZESTRIL) 20 MG tablet 20 mg 2 (two) times a day . metFORMIN (GLUCOPHAGE-XR) 500 MG 24 hr tablet 1,000 mg 2 (two) times a day . rosuvastatin (CRESTOR) 20 MG tablet 20 mg daily . tamsulosin (FLOMAX) 0.4 mg capsule tamsulosin TAMSULOSIN HCL 0.4 MG CAPS One tablet by mouth daily TAMSULOSIN HCL [id number] Sebastián Dailey MD 06-15-2017 [facility] ([id number]) STOP ( medications that contain aspirin, such as [place], Pepto-Bismol, Anacin), antiinflammatory medications such as Advil, Motrin, Ibuprofen, Naproxen, Aleve, [place], Pepto-Bismol, Anacin, Diclofenac, Voltaren, Daypro, Etodolac, Ketoprofen, Piroxicam, Relafen, Nabumetone, etc. Also discontinue Vitamin C, Vitamin E, [place]-3 Fatty Acid, Fish Oil or Lovaza, and all herbal medications DIRECTED BY SURGEON. Tylenol (acetaminophen) is acceptable(unless you have an allergy to this medication ), but be careful to follow the label directions and do not use with other pain medications. On the morning of surgery, with as little water as possible, ONLY take the medications listed above in the column Take the morning of surgery. If you are using Eye Drops or Inhalers, please bring them to the hospital. Patient Instructions for [facility]: Prior to surgery: Surgeon's office will contact you with the scheduled time of your surgery. You may use the [employer] parking available at the Main Entrance One family member may accompany you back into the Pre-Op Area. Do not eat or drink anything after midnight or as directed, including gum, mints, and cough drops. No smoking after midnight. No alcohol 24 hours prior to your surgery. Please take any medications you have been instructed to take the morning of your surgery with small sips of water. Please be sure to wear comfortable, appropriate clothing. Please remove all jewelry and piercing's, including wedding rings. Leave all valuable items at home. Shower using anti-bacterial soap or as advised by your Surgeon's office Do not apply any makeup or lotions. Remove all nail portuguese for surgeries involving extremities. Please remember to bring both your insurance card and a photo ID with you on the day of surgery. After your surgery: If you are having outpatient surgery - you must have a licensed after school driver to take you home. The expectation is that this after school driver will remain at the hospital for the duration of your procedure. You are advised to have a family member with you for at least 24 hours after being under Anesthesia. If you have sleep apnea and have a CPAP/BIPAP device, please bring it with you the day of surgery. documented in this encounter GENERAL POST-OPERATIVE PATIENT INSTRUCTIONS ANESTHESIA PRECAUTIONS: A responsible adult must stay with you for at least 24 hours after surgery. You may feel light headed,, dizzy, or nauseated during this time. Do not operate a vehicle (car, bike, motorcycle, boat carpenter mechanic) machinery or power tools. Do not make any important decisions or drink any alcoholic beverages for 24 hours. Children should remain quiet today. No riding of bicycles, motorcycles, skateboards, playing on swings etc. Drink plenty of fluids today. Eat light, small, frequent meals today. Resume regular diet tomorrow. FOLLOW-UP: Please make an appointment with your physician for follow-up. Call your physician immediately if you have any fevers greater than 101, drainage from your wound that is not clear or looks infected, persistent bleeding, increasing abdominal pain, problems urinating, or persistent nausea/vomiting. DIET: You may eat any foods that you can tolerate. It is a good idea to eat a high fiber diet and take in plenty of fluids to prevent constipation. If you do become constipated you may want to take a mild laxative or take ducolax tablets on a daily basis until your bowel habits are regular. Constipation can be very uncomfortable, along with straining, after recent surgery. ACTIVITY: You are encouraged to cough and deep breathe or use your incentive spirometer if you were given one, every 15-30 minutes when awake. This will help prevent respiratory complications and low grade fevers post-operatively if you had a general anesthetic. You are encouraged to walk and engage in light activity for the next two weeks. MEDICATIONS: Try to take narcotic medications and anti-inflammatory medications, such as ibuprofen, naprosyn, etc., with food. This will minimize stomach upset from the medication. Should you develop nausea and vomiting from the pain medication, or develop a rash, please discontinue the medication and contact your physician. You should not drive, make important decisions, or operate machinery when taking narcotic pain medication. Do not take tylenol or tylenol products with narcotic medications. QUESTIONS: Please feel free to call your physician or the hospital pump station operator if you have any questions, and they will be glad to assist you. documented in this encounter Report called to Dorie VÁZQUEZ at in rehab. Problem: Pressure Ulcer - Risk of Goal: Absence of pressure ulcer Outcome: Partially Met Pt repositions himself. Problem: Actual or potential alteration in health Goal: Knowledge of Enviroment Outcome: Partially Met Plan of care to be reviewed with family by R.N. on a daily basis. Problem: Fall Risk Goal: Ability to function at adequate level Outcome: Partially Met Pt is on fall risk precautions. OCCUPATIONAL THERAPY VISIT VARIANCE NOTE Attempted to see patient at this time, but unable secondary to: OT Visit Variance: Awaiting Medical Clearance (comment). Patient with dehiscence of plantar incision , R foot; underwent R foot I&D and adjustment of external fixator on 12/02/2019. He is to be NWBing on the RLE. Spoke with Dr. Mora, who wants patient to remain in bed for today, so will hold OT eval at this time. IPR referral ordered. Will follow up as appropriate. Brief Post Operative Note Patient Name: Dyllan Huertas : 1960 (59 y.o.) Date of Service: 12/02/2019 CSN: [id number] Procedure(s): RIGHT FOOT I&D ADJUSTMENT of EXTERNAL FIXATOR Pre-Operative Diagnoses: * Dehiscence of plantar incision, right foot Post-Operative Diagnoses: * Same as Pre-Op Diagnosis Surgeon(s) and Role: * Alena Mora DPM - Primary Anesthesiologist: Dyllan Gill MD GENERAL FARMWORKER: Berhane Hawley CRNA Director Of Programming: Krish Hutchison RN; Rohit Wood RN Car Supplier: Jamie Norton, TECHNOLOGIST Scrub Person: Rohit Herrera II ; Jace Negrete LPN Safety Assistant: Katie Bello Operative findings: Central dehiscence to plantar incision site right foot. No purulence. Fibrosis and residual sutures noted. Pin irritation and drainage from the distal lateral forefoot pin. Pin was removed. External fixator was adjusted according after a new pin was drilled. Intra and immediate post-operative complications: None Type of anesthesia used: General Estimated blood loss: 20 mL Estimated urine output: Specimen(s): ID Type Source Tests Collected by Time Destination A : Soft Tissue Plantar Ulceration Right Foot Tissue Soft Tissue, Please Specify TISSUE AEROBIC CULTURE, TISSUE EXAM, TISSUE AFB CULTURE, TISSUE ANAEROBIC CULTURE, TISSUE FUNGUS CULTURE Alena Mora DPM 12/02/2019 1503 Implant(s): Implant Name Type Inv. Item Serial No. Production Tool Engineer Lot No. LRB No. Used Action WIRE 2 X 400MM SMOOTH LONG - [id number] WIRE 2 X 400MM SMOOTH LONG SYNTHES LT 1 Implanted Drain(s): Closed/Suction Drain 1 Right;Ventral Foot 10 Fr. (Active) Urethral Catheter Latex 16 Fr. (Active) Site Assessment Clean;Intact 12/01/2019 9:15 PM Collection Container Standard drainage bag 12/01/2019 9:15 PM Securement Method Securing device 12/01/2019 9:15 PM Reason for Continuing Urinary Catheterization past POD 1 Placed by order of urology/gynecology 12/01/2019 9:15 PM Output (mL) 1600 mL 12/02/2019 4:59 AM Wound(s): Wound (Outpatient Only) 03/31/19 Foot Anterior;Right;Plantar (Active) Wound Image 11/30/2019 9:00 AM Wound Length (cm) 5.5 cm 11/30/2019 9:00 AM Wound Width (cm) 1.4 cm 11/30/2019 9:00 AM Wound Depth (cm) 0.2 cm 11/30/2019 9:00 AM Wound Surface Area (cm^2) 7.7 cm^2 11/30/2019 9:00 AM Wound Volume (cm^3) 1.54 cm^3 11/30/2019 9:00 AM Area % Change [id number] 11/30/2019 9:00 AM Volume % Change 0 11/30/2019 9:00 AM Tunneling Maximum Distance (cm) 0 cm 11/30/2019 9:00 AM Tunneling Position (o'clock) 0 11/30/2019 9:00 AM Undermining Maximum Distance (cm) 1 0 cm 11/30/2019 9:00 AM Undermining Starting Position (o'clock) 1 0 11/30/2019 9:00 AM Undermining Ending Position (o'clock) 1 0 11/30/2019 9:00 AM Wound Encounter Subsequent 11/30/2019 9:00 AM Wound Progress Improving 11/30/2019 9:00 AM Non-staged Wound Description Partial thickness 11/30/2019 9:00 AM Drainage Amount EDDI 12/02/2019 8:15 AM Drainage Description Fresh blood 11/30/2019 9:00 AM Odor None 12/02/2019 8:15 AM Adherent Yellow Slough % None 11/30/2019 9:00 AM Moist Yellow Slough % None 11/30/2019 9:00 AM Dry Black Eschar % None 11/30/2019 9:00 AM Moist Black Eschar % None 11/30/2019 9:00 AM Epithelialization % 26-50% 11/30/2019 9:00 AM Granulation % 26-50%;Bright red 11/30/2019 9:00 AM Exposed Structure None 11/30/2019 9:00 AM Wound Bed Characteristics Clean;Intact;Granulation tissue;Swelling 11/30/2019 9:00 AM Wound Closure Sutures 11/30/2019 9:00 AM Angeli-wound Assessment Temperature WNL 12/02/2019 8:15 AM Hemostasis Not applicable 11/30/2019 9:00 AM Primary Dressing Impregnated gauze 11/30/2019 9:00 AM Secondary Dressing Gauze pad;Gauze roll;Dry gauze dressing 11/30/2019 9:00 AM Compression Dressing Zechariah wrap 12/02/2019 8:15 AM Wound 11/20/19 Surgical Wound Leg Right (Active) Dressing Status Clean;Dry;Intact 12/02/2019 8:15 AM Wound Image 11/30/2019 9:00 AM Angeli-wound Assessment Temperature WNL 12/02/2019 8:15 AM Compression Dressing Zechariah wrap 12/02/2019 8:15 AM Wound 12/02/19 Surgical Wound Lower Leg Right (Active) Alena Mora DPM 12/02/2019 5:36 PM OCCUPATIONAL THERAPY VISIT VARIANCE NOTE Attempted to see patient at this time, but unable secondary to: OT Visit Variance: Awaiting Medical Clearance (comment)(Pending surgery to R LE today at 12:00 to repair partial dehiscence of wound with possible adjustment of external fixator. Case discussed with nurse and patient. Pt has referral to [facility] and he hopes to d/c to [facility] post surgery so that Dr Mora and Dr Awad can follow him post procedure. OT evaluation held today with plan to initiate services post procedure.). Will follow up as appropriate. Dr Mora was unable to do transfer med reconciliation, attempt to call [facility] twice, no answer Pt has wound to R foot. External rotator in place, dsg placed by wound care prior to admission. POC initiated documented in this encounter Discharged via w/c to [facility]. Exit. Pt's [id number] accompanied pt home. Dr. Bowden's office called to clarify Humulin R insulin dose on med rec. Entry corrected by Dr. Bowden. Dr. Mora visits. Opened dressing of zechariah wrap to observe pin sites and incision. Pictures of pin sites and incision provided for Dr. Mora. [facility] Nurse Notes Problem: Actual or potential alteration in health Goal: Absence of healthcare acquired conditions Outcome: Partially Met Problem: Pressure Ulcer - Risk of Goal: Absence of pressure ulcer Outcome: Partially Met Note: Patient is able to shift own weight in bed. Problem: Falls, Risk of Goal: Absence of falls Outcome: Partially Met Note: Call light and bedside table are within reach. Exit alarm armed. Intentional rounding continues. Problem: Mobility - Impaired Goal: Able to achieve maximum mobility level Outcome: Partially Met Note: Patient is a sliding board transfer. Problem: Plan for Discharge Goal: Knowledge of discharge plan and instructions Outcome: Partially Met Note: Discharge planning is ongoing. Problem: Serum Glucose Level - Abnormal Goal: Glucose level within specified parameters Outcome: Partially Met Note: BGL checked AC/HS, before meals, and PRN. Problem: Urinary Elimination - Impaired Goal: Urinary elimination within specified parameters Outcome: Partially Met Note: Patient has indwelling schulte catheter. [facility] Physical Therapy Notes Problem: Mobility - Impaired Goal: PT- LTG stand-pivot transfer Description: PT - Patient will perform bed mobility with WI and transfers with RW and mod assist to improve functional mobility and safety. Outcome: Met Note: Pt is performing bed mobility with WI, sliding board transfers with WI and stand pivot with CGA/min Goal: PT- LTG sliding board transfer Description: PT - Patient will perform sliding board transfer with WI to improve functional mobility and safety. Outcome: Met Goal: PT- LTG dynamic balance Description: PT - Patient will increase standing dynamic balance to poor of 1 person to improve functional mobility and safety. Outcome: Met Note: Poor+ with bilat UE support and 1 person assist Goal: PT- LTG wheelchair management Description: PT - Patient will propel and manage wheelchair at least 300 ft with WI on multiple surfaces including ramps to improve functional mobility and safety. Outcome: Met Note: At least 300 ft on multiple surfaces including ramps [facility] Occupational Therapy Notes Problem: Self-care Deficit Goal: OT- STG toileting Description: OT - Patient will complete toileting with minimal assist for clothing management while seated with AD/AE if needed to improve self care function. Outcome: Met Note: Mod Ind - per patient report and simulated completion Goal: OT- LTG UB dressing Description: OT - Patient will complete UB dressing with modified independence to improve self care function. Outcome: Met Goal: OT- LTG LB dressing Description: OT - Patient will complete LB dressing with modified independence while seated to improve self care function. Outcome: Met Goal: OT- LTG toileting Description: OT - Patient will complete toileting with supervision while seated for clothing management with AD/AE if needed to improve self care function. Outcome: Met Note: Mod Ind Goal: OT- LTG meal preparation Description: OT - Patient will complete simple meal preparation from w/c level with modified independence including item retreival using AE while adhering to NWB precautions of RLE to improve self care function. Outcome: Met Goal: OT- LTG precautions Description: OT - Patient will demonstrate NWB of RLE precaution management independently to improve safe and appropriate ADL/IADL management. Outcome: Met Goal: OT- LTG Self-Care Other Description: OT- Patient will participate in caregiver/family training as needed to enhance a safe return to home environment by time of discharge, including education on fall prevention, HEP, and adaptive equipment needs/DME. Outcome: Met Note: Family did not attend therapy sessions for training. However, patient demonstrates Mod Ind for self care needs and functional transfers. Issued HEP and discussed DME needs for home. Problem: Mobility - Impaired Goal: OT- LTG toilet transfer Description: OT - Patient will complete toilet transfer with slide board to [facility] with modified independence needed in preparation for ADL's. Outcome: Met Note: Lateral transfer without slide board Problem: Impaired Strength Goal: OT- LTG Strength Other Description: OT- Patient will tolerate 15- 20 minutes of BUE strengthening, demonstrating independence with HEP by time of discharge, in order to improve strength necessary for functional transfers in preparation for ADLs Outcome: Met Problem: Mobility - Impaired Goal: OT- LTG Mobility Other Description: OT- Patient will complete stand pivot transfer with AD while adhering to NWB precautions of RLE with contact guard assist to improve independence for ADLs. Outcome: Partially Met Note: Mod Ind for lateral transfer. Did not complete stand pivot transfers with WW due to physician's orders to avoid standing on LLE as much as possible. Problem: Mobility - Impaired Goal: OT- STG toilet transfer Description: OT - Patient will complete toilet transfer with slide board to [facility] with contact guard assist if needed in preparation for ADL's. Outcome: Completed Note: Mod Ind for lateral transfer [facility] Nurse Notes Problem: Actual or potential alteration in health Goal: Absence of healthcare acquired conditions Outcome: Met Problem: Pressure Ulcer - Risk of Goal: Absence of pressure ulcer Outcome: Partially Met Problem: Falls, Risk of Goal: Absence of falls Outcome: Partially Met Problem: Mobility - Impaired Goal: Able to achieve maximum mobility level Outcome: Met Note: Patient is able to transfer on and off surfaces with the use of a sliding board. Problem: Plan for Discharge Goal: Knowledge of discharge plan and instructions Outcome: Partially Met Problem: Urinary Elimination - Impaired Goal: Urinary elimination within specified parameters Outcome: Met Note: Patient is proficient in clamping and unclamping his catheter. Problem: Serum Glucose Level - Abnormal Goal: Glucose level within specified parameters Outcome: Partially Met [facility] Nurse Notes Problem: Actual or potential alteration in health Goal: Absence of healthcare acquired conditions Outcome: Partially Met Problem: Pressure Ulcer - Risk of Goal: Absence of pressure ulcer Outcome: Partially Met Note: Patient is able to shift own weight in bed. Problem: Falls, Risk of Goal: Absence of falls Outcome: Partially Met Note: Call light and bedside table are within reach. Bed exit alarm armed. Intentional rounding continues. Problem: Mobility - Impaired Goal: Able to achieve maximum mobility level Outcome: Partially Met Note: Patient is a sliding board transfer. Problem: Plan for Discharge Goal: Knowledge of discharge plan and instructions Outcome: Partially Met Note: Discharge planning is ongoing. Problem: Serum Glucose Level - Abnormal Goal: Glucose level within specified parameters Outcome: Partially Met Note: BGLs checked ac/hs Problem: Urinary Elimination - Impaired Goal: Urinary elimination within specified parameters Outcome: Partially Met Note: Patient currently has indwelling schulte catheter. Dressing change to R foot, pins cleansed, plantar incision cleaned, betadine applied, xeroform applied, covered incision with 4x4s and wrapped with 2 kerlix. Zechariah wraps applied over fixators. Plantar incision is dry, no drainage noted. Dr Mora did not see pt on Wednesday. [facility] Nurse Notes Problem: Actual or potential alteration in health Goal: Absence of healthcare acquired conditions Outcome: Partially Met Problem: Pressure Ulcer - Risk of Goal: Absence of pressure ulcer Outcome: Partially Met Problem: Falls, Risk of Goal: Absence of falls Outcome: Partially Met Problem: Mobility - Impaired Goal: Able to achieve maximum mobility level Outcome: Partially Met Note: Patient transferring with sliding board from chair to bed Problem: Plan for Discharge Goal: Knowledge of discharge plan and instructions Outcome: Partially Met Problem: Serum Glucose Level - Abnormal Goal: Glucose level within specified parameters Outcome: Partially Met Problem: Urinary Elimination - Impaired Goal: Urinary elimination within specified parameters Outcome: Partially Met Note: Patient has indwelling schulte catheter [facility] Nurse Notes Problem: Actual or potential alteration in health Goal: Absence of healthcare acquired conditions Outcome: Partially Met Problem: Pressure Ulcer - Risk of Goal: Absence of pressure ulcer Outcome: Partially Met Problem: Falls, Risk of Goal: Absence of falls Outcome: Partially Met Problem: Mobility - Impaired Goal: Able to achieve maximum mobility level Outcome: Partially Met Problem: Plan for Discharge Goal: Knowledge of discharge plan and instructions Outcome: Partially Met [facility] Nurse Notes Problem: Actual or potential alteration in health Goal: Absence of healthcare acquired conditions Outcome: Partially Met Note: No signs or symptoms of healthcare acquired conditions at this time. Goal: Knowledge of Interdisciplinary Plan of Care Outcome: Completed Goal: Knowledge of Enviroment Outcome: Completed Problem: Pressure Ulcer - Risk of Goal: Absence of pressure ulcer Outcome: Partially Met Note: Patient is able to turn self in bed with no issues. Problem: Falls, Risk of Goal: Absence of falls Outcome: Partially Met Note: Call light and bedside table are within reach. Bed exit alarm armed.Intentional rounding continues. Problem: Mobility - Impaired Goal: Able to achieve maximum mobility level Outcome: Partially Met Note: Patient is a sliding board transfer. Problem: Plan for Discharge Goal: Knowledge of discharge plan and instructions Outcome: Partially Met Note: Plan for discharge is ongoing. Problem: Serum Glucose Level - Abnormal Goal: Glucose level within specified parameters Outcome: Partially Met Note: Blood glucose levels checked AC/HS, PRN. Problem: Urinary Elimination - Impaired Goal: Urinary elimination within specified parameters Outcome: Partially Met Note: Patient has indwelling schulte catheter. Dr. Bowden called regarding low blood sugar of 91, order received to give 6 units and insulin coverage will be adjusted. [facility] Nurse Notes Problem: Actual or potential alteration in health Goal: Absence of healthcare acquired conditions Outcome: Partially Met Goal: Knowledge of Interdisciplinary Plan of Care Outcome: Partially Met Goal: Knowledge of Enviroment Outcome: Partially Met Problem: Pressure Ulcer - Risk of Goal: Absence of pressure ulcer 12/14/2019 1525 by Latonya Penny, GURPREET Note: Patient has developed a new pressure area on his R great toe and on his R calf due to bandage and foot rest. 12/14/2019 1514 by Latonya Penny RN Outcome: Partially Met Problem: Falls, Risk of Goal: Absence of falls Outcome: Partially Met Problem: Mobility - Impaired Goal: Able to achieve maximum mobility level Outcome: Partially Met Problem: Plan for Discharge Goal: Knowledge of discharge plan and instructions Outcome: Partially Met Problem: Serum Glucose Level - Abnormal Goal: Glucose level within specified parameters Outcome: Partially Met Problem: Urinary Elimination - Impaired Goal: Urinary elimination within specified parameters Outcome: Partially Met Note: Patient stated that he had been self cathing for years. Patient made responsible for clamping his own catheter and unclamping every [address] Mora in and new orders received. Pressure areas noted on top of great toe and back of R calf. [facility] Nurse Notes Problem: Actual or potential alteration in health Goal: Absence of healthcare acquired conditions Outcome: Partially Met Goal: Knowledge of Interdisciplinary Plan of Care Outcome: Partially Met Goal: Knowledge of Enviroment Outcome: Partially Met Note: Patient educated on room and unit. Problem: Pressure Ulcer - Risk of Goal: Absence of pressure ulcer Outcome: Partially Met Note: Patient able to shift own weight in bed with no issues. Problem: Falls, Risk of Goal: Absence of falls Outcome: Partially Met Note: Call light and bed side table are within reach. Bed exit alarm armed. Intentional rounding continues. Problem: Mobility - Impaired Goal: Able to achieve maximum mobility level Outcome: Partially Met Note: Patient is a transfer of one with a sliding board. Problem: Plan for Discharge Goal: Knowledge of discharge plan and instructions Outcome: Partially Met Note: Plan for discharge is on ongoing. Problem: Serum Glucose Level - Abnormal Goal: Glucose level within specified parameters Outcome: Partially Met Note: BGL checked AC/HS, before meals, PRN. Problem: Urinary Elimination - Impaired Goal: Urinary elimination within specified parameters Outcome: Partially Met Note: Patient has schulte catheter in at this time. [facility] Nurse Notes Problem: Actual or potential alteration in health Goal: Absence of healthcare acquired conditions Outcome: Met Goal: Knowledge of Interdisciplinary Plan of Care Outcome: Met Goal: Knowledge of Enviroment Outcome: Met Problem: Pressure Ulcer - Risk of Goal: Absence of pressure ulcer Outcome: Met Note: No pressure injury noted. Problem: Falls, Risk of Goal: Absence of falls Outcome: Met Note: Pt is a sliding board transfer with assist of one. Problem: Mobility - Impaired Goal: Able to achieve maximum mobility level Outcome: Met Problem: Plan for Discharge Goal: Knowledge of discharge plan and instructions Outcome: Met Note: Pt is hoping to discharge to home with occasional assistance from his brother. Problem: Serum Glucose Level - Abnormal Goal: Glucose level within specified parameters Outcome: Met Note: Diabetic education and nutrition education hae been ordered for patient. Pt reports an interest in learning more about diabetes and diet education. Problem: Urinary Elimination - Impaired Goal: Urinary elimination within specified parameters Outcome: Met Note: Pt has a history of urinary retention. Pt was straight cathing once daily in the evenings at home pre-morbidly. Pt arrived to the rehab unit with a schulte in. Order received to discontinue schulte. When night nurse attempted to straight cath patient she was unable to get urine. Nurse reinserted schulte and pt had a large amount of urine. Pt reports he had no urge to void and no sensation. Pt reports he is not having any sensation to void. Bladder training was started, clamping catheter for six hours then emptying bladder and re-clamping. Pt had 600mls of urine and had no sensation to void. Will continue to closely monitor patient. Problem: Actual or potential alteration in health Goal: Absence of healthcare acquired conditions Outcome: Partially Met Goal: Knowledge of Interdisciplinary Plan of Care Outcome: Partially Met Goal: Knowledge of Enviroment Outcome: Partially Met Problem: Pressure Ulcer - Risk of Goal: Absence of pressure ulcer Outcome: Partially Met Problem: Falls, Risk of Goal: Absence of falls Outcome: Partially Met Problem: Mobility - Impaired Goal: Able to achieve maximum mobility level Outcome: Partially Met Problem: Plan for Discharge Goal: Knowledge of discharge plan and instructions Outcome: Partially Met Problem: Serum Glucose Level - Abnormal Goal: Glucose level within specified parameters Outcome: Partially Met Problem: Actual or potential alteration in health Goal: Absence of healthcare acquired conditions Outcome: Partially Met Goal: Knowledge of Interdisciplinary Plan of Care Outcome: Partially Met Goal: Knowledge of Enviroment Outcome: Partially Met Problem: Pressure Ulcer - Risk of Goal: Absence of pressure ulcer Outcome: Partially Met Problem: Falls, Risk of Goal: Absence of falls Outcome: Partially Met Problem: Mobility - Impaired Goal: Able to achieve maximum mobility level Outcome: Partially Met Problem: Plan for Discharge Goal: Knowledge of discharge plan and instructions Outcome: Partially Met Problem: Serum Glucose Level - Abnormal Goal: Glucose level within specified parameters Outcome: Partially Met Dr Mora in to see pt. Dressing change to R foot. [facility] Nurse Notes Problem: Actual or potential alteration in health Goal: Absence of healthcare acquired conditions Outcome: Met Goal: Knowledge of Interdisciplinary Plan of Care Outcome: Met Goal: Knowledge of Enviroment Outcome: Met Problem: Pressure Ulcer - Risk of Goal: Absence of pressure ulcer Outcome: Met Note: Pt. Is able to reposition himself while in bed. Problem: Falls, Risk of Goal: Absence of falls Outcome: Met Note: Pt. Uses call light and waits for assistance. Safety measures in place. Problem: Mobility - Impaired Goal: Able to achieve maximum mobility level Outcome: Partially Met Note: Pt. Is able to transfer in/out of bed using sliding board with set up and assist of one person. Problem: Plan for Discharge Goal: Knowledge of discharge plan and instructions Outcome: Partially Met Note: Pt. Had been at [facility] in [place] before admission here. Problem: Serum Glucose Level - Abnormal Goal: Glucose level within specified parameters Outcome: Partially Met Note: Yesterday evening glucose check 195. Had no coverage for this. Pt. Had hs snack of crackers with his regular hs insulin. [facility] Occupational Therapy Notes Problem: Self-care Deficit Goal: OT- STG toileting Description: OT - Patient will complete toileting with minimal assist for clothing management while seated with AD/AE if needed to improve self care function. Outcome: Not Addressed Goal: OT- LTG UB dressing Description: OT - Patient will complete UB dressing with modified independence to improve self care function. Outcome: Met Goal: OT- LTG LB dressing Description: OT - Patient will complete LB dressing with modified independence while seated to improve self care function. Outcome: Partially Met Note: Min A to thread shorts/underwear over external fixator Goal: OT- LTG toileting Description: OT - Patient will complete toileting with supervision while seated for clothing management with AD/AE if needed to improve self care function. Outcome: Not Addressed Goal: OT- LTG meal preparation Description: OT - Patient will complete simple meal preparation from w/c level with modified independence including item retreival using AE while adhering to NWB precautions of RLE to improve self care function. Outcome: Partially Met Note: Pt practice item retrieval in OT kitchen from w/c with SBA Goal: OT- LTG precautions Description: OT - Patient will demonstrate NWB of RLE precaution management independently to improve safe and appropriate ADL/IADL management. Outcome: Partially Met Note: Weight beared during slide board transfer after given v/c and edu on weight bearing precautions Goal: OT- LTG Self-Care Other Description: OT- Patient will participate in caregiver/family training as needed to enhance a safe return to home environment by time of discharge, including education on fall prevention, HEP, and adaptive equipment needs/DME. Outcome: Partially Met Note: Given HEP (thera-band) during session, will continue to address Problem: Mobility - Impaired Goal: OT- STG toilet transfer Description: OT - Patient will complete toilet transfer with slide board to BSC with contact guard assist if needed in preparation for ADL's. Outcome: Not Addressed Goal: OT- LTG toilet transfer Description: OT - Patient will complete toilet transfer with slide board to BSC with modified independence needed in preparation for ADL's. Outcome: Not Addressed Problem: Impaired Strength Goal: OT- LTG Strength Other Description: OT- Patient will tolerate 15- 20 minutes of BUE strengthening, demonstrating independence with HEP by time of discharge, in order to improve strength necessary for functional transfers in preparation for ADLs Outcome: Partially Met Note: ~10 mins, continuing to address Problem: Mobility - Impaired Goal: OT- LTG Mobility Other Description: OT- Patient will complete stand pivot transfer with AD while adhering to NWB precautions of RLE with contact guard assist to improve independence for ADLs. Outcome: Not Addressed [facility] Physical Therapy Notes Problem: Mobility - Impaired Goal: PT- LTG dynamic balance Description: PT - Patient will increase standing dynamic balance to poor of 1 person to improve functional mobility and safety. Outcome: Met Note: Poor of 1 person with RW Problem: Mobility - Impaired Goal: PT- LTG stand-pivot transfer Description: PT - Patient will perform bed mobility with WI and transfers with RW and mod assist to improve functional mobility and safety. Outcome: Partially Met Note: Pt is able to provide sliding board with SBA. And bed mobility WI. Stand pivot with RW and mod assist x 1-2 with not able to step around for pivot though Goal: PT- LTG sliding board transfer Description: PT - Patient will perform sliding board transfer with WI to improve functional mobility and safety. Outcome: Partially Met Note: SBA from even surfaces. Will need to trial car with sliding board and to higher surfaces Goal: PT- LTG wheelchair management Description: PT - Patient will propel and manage wheelchair at least 300 ft with WI on multiple surfaces including ramps to improve functional mobility and safety. Outcome: Partially Met Note: WI on even surfaces and SBA with cues for uneven including ramps Pt cheerful, pleasant and cooperative. Skin is cool and moist. Asked pt if he felt his blood sugar might be low and pt stated he didn't know. Rechecked blood sugar and results 162. Pt denies pain. States has no sensation on the sole of his feet. [facility] Nurse Notes Problem: Actual or potential alteration in health Goal: Absence of healthcare acquired conditions Outcome: Met Goal: Knowledge of Interdisciplinary Plan of Care Outcome: Met Goal: Knowledge of Enviroment Outcome: Met Problem: Pressure Ulcer - Risk of Goal: Absence of pressure ulcer Outcome: Met Problem: Falls, Risk of Goal: Absence of falls Outcome: Met Problem: Mobility - Impaired Goal: Able to achieve maximum mobility level Outcome: Partially Met Note: Reported pt. Is a sliding board transfer with assist of one Problem: Plan for Discharge Goal: Knowledge of discharge plan and instructions Outcome: Partially Met Problem: Serum Glucose Level - Abnormal Goal: Glucose level within specified parameters Outcome: Partially Met Note: Bedtime blood sugar yesterday 164. [facility] Nurse Notes Problem: Actual or potential alteration in health Goal: Absence of healthcare acquired conditions 12/09/20191852 by Latonya Penny RN Outcome: Partially Met 12/09/20191823 by Latonya Penny RN Outcome: Partially Met Goal: Knowledge of Interdisciplinary Plan of Care 12/09/20191852 by Latonya Penny RN Outcome: Partially Met 12/09/20191823 by Latonya Penny RN Outcome: Partially Met Goal: Knowledge of Enviroment 12/09/20191852 by Latonya Penny RN Outcome: Partially Met 12/09/20191823 by Latonya Penny RN Outcome: Partially Met Problem: Pressure Ulcer - Risk of Goal: Absence of pressure ulcer 12/09/20191852 by Latonya Penny RN Outcome: Partially Met 12/09/20191823 by Latonya Penny RN Outcome: Partially Met Problem: Falls, Risk of Goal: Absence of falls 12/09/20191852 by Latonya Penny RN Outcome: Partially Met 12/09/20191823 by Latonya Penny RN Outcome: Partially Met Problem: Mobility - Impaired Goal: Able to achieve maximum mobility level 12/09/20191852 by Latonya Penny RN Outcome: Partially Met 12/09/20191823 by Latonya Penny RN Outcome: Partially Met Problem: Plan for Discharge Goal: Knowledge of discharge plan and instructions 12/09/20191852 by Latonya Penny RN Outcome: Partially Met 12/09/20191823 by Latonya Penny RN Outcome: Partially Met Problem: Serum Glucose Level - Abnormal Goal: Glucose level within specified parameters 12/09/20191852 by Latonya Penny RN Outcome: Partially Met 12/09/20191823 by Latonya Penny RN Outcome: Partially Met [facility] Nurse Notes Problem: Actual or potential alteration in health Goal: Absence of healthcare acquired conditions Outcome: Partially Met Goal: Knowledge of Interdisciplinary Plan of Care Outcome: Partially Met Goal: Knowledge of Enviroment Outcome: Partially Met Problem: Pressure Ulcer - Risk of Goal: Absence of pressure ulcer Outcome: Partially Met Problem: Falls, Risk of Goal: Absence of falls Outcome: Partially Met Problem: Mobility - Impaired Goal: Able to achieve maximum mobility level Outcome: Partially Met Problem: Plan for Discharge Goal: Knowledge of discharge plan and instructions Outcome: Partially Met Problem: Serum Glucose Level - Abnormal Goal: Glucose level within specified parameters Outcome: Partially Met Associated Problem(s): S/P foot surgery, right Dr. Mora podiatry consulted to manage wound. Extensive wound care is needed. Non wt bearing. Associated Problem(s): Benign prostatic hyperplasia with urinary retention Has been straight cathing at home. Follows with Dr. Izquierdo. Bladder training, remove schulte, bladder scan and straight cath. Pt has no bladder sensation Associated Problem(s): Essential hypertension Monitor blood pressure per shift. Check kidney function. Continue coreg Associated Problem(s): 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) Consult endocrinology. DM has not been well controlled and the infection is making it worse. Monitor blood glucose ACHS, continue lantus, preprandial humalog, and sliding scale. Diabetic diet Associated Problem(s): Mixed hyperlipidemia Continue lipitor and fenofibrate. Uses crestor at home. Monitor liver function Associated Problem(s): JAYDEN (obstructive sleep apnea) Encourage pt to wear cpap. Wear nasal cannula at 2L at night if he refuses Cpap Associated Problem(s): Osteomyelitis (HCC) Consult ID and continue IV antibiotics. Non wt bearing on right foot. Pt. Awake and assisted to bathroom. Pt. Has slept well since he received ordered seroquel at bedtime. Pt. Has not become confused or agitated tonight. Problem: Actual or potential alteration in health Goal: Absence of healthcare acquired conditions Outcome: Partially Met Goal: Knowledge of Interdisciplinary Plan of Care Outcome: Partially Met Goal: Knowledge of Enviroment Outcome: Partially Met Problem: Pressure Ulcer - Risk of Goal: Absence of pressure ulcer Outcome: Met Problem: Falls, Risk of Goal: Absence of falls Outcome: Met Problem: Mobility - Impaired Goal: Able to achieve maximum mobility level Outcome: Partially Met Problem: Plan for Discharge Goal: Knowledge of discharge plan and instructions Outcome: Not Met Problem: Serum Glucose Level - Abnormal Goal: Glucose level within specified parameters Outcome: Not Met Problem: Actual or potential alteration in health Goal: Absence of healthcare acquired conditions Outcome: Met Goal: Knowledge of Interdisciplinary Plan of Care Outcome: Met Goal: Knowledge of Enviroment Outcome: Met Problem: Pressure Ulcer - Risk of Goal: Absence of pressure ulcer Outcome: Met Note: No pressure injury noted. Problem: Falls, Risk of Goal: Absence of falls Outcome: Met Note: Pt uses call light appropriately and waits for assist to transfer. Problem: Mobility - Impaired Goal: Able to achieve maximum mobility level Outcome: Met Note: Pt uses sliding board to transfer into bed with stand by assist. Problem: Plan for Discharge Goal: Knowledge of discharge plan and instructions Outcome: Met Note: Pt would like to return home with home health care. Problem: Serum Glucose Level - Abnormal Goal: Glucose level within specified parameters Outcome: Met [facility] Nurse Notes [facility] Physical Therapy Notes Problem: Mobility - Impaired Goal: PT- LTG stand-pivot transfer Description: PT - Patient will perform bed mobility with WI and transfers with RW and mod assist to improve functional mobility and safety. Outcome: Not Addressed Goal: PT- LTG sliding board transfer Description: PT - Patient will perform sliding board transfer with WI to improve functional mobility and safety. Outcome: Not Addressed Goal: PT- LTG dynamic balance Description: PT - Patient will increase standing dynamic balance to poor of 1 person to improve functional mobility and safety. Outcome: Not Addressed Goal: PT- LTG wheelchair management Description: PT - Patient will propel and manage wheelchair at least 300 ft with WI on multiple surfaces including ramps to improve functional mobility and safety. Outcome: Not Addressed In to check on patient. Patient states he still doesn't feel like he needs to void. Scanned patients bladder and found that he has 1416 ml on urine in bladder. Straight cathed patient but was only able to get 350 ml of clear yellow urine out. Urine sent for urinalysis and culture. Attempted to reposition patient and catheter to get more urine out but was unsuccessful. Scanned patient's bladder again and it showed he had >1000 ml of urine still in his bladder. Reinserted schulte catheter and urine showed in the tubing. Inflated balloon with 10 ml of water and seated the balloon in the base of patient's bladder. Patient will need bladder training prior to schulte being removed again. Will continue to monitor. Problem: Pressure Ulcer - Risk of Goal: Absence of pressure ulcer Outcome: Met Problem: Falls, Risk of Goal: Absence of falls Outcome: Met Note: High fall risk precautions in place. No falls during this shift. Problem: Mobility - Impaired Goal: Able to achieve maximum mobility level Outcome: Partially Met Note: Pt at times get up x2 with sliding or arjo Problem: Plan for Discharge Goal: Knowledge of discharge plan and instructions Outcome: Partially Met [facility] Problem: Self-care Deficit Goal: OT- STG toileting Description: OT - Patient will complete toileting with minimal assist for clothing management while seated with AD/AE if needed to improve self care function. 12/07/20191706 by Nicholas Sanon Outcome: Not Addressed Goal: OT- LTG UB dressing Description: OT - Patient will complete UB dressing with modified independence to improve self care function. 12/07/20191706 by Nicholas Sanon Outcome: Not Addressed Goal: OT- LTG LB dressing Description: OT - Patient will complete LB dressing with modified independence while seated to improve self care function. 12/07/20191706 by Nicholas Sanon Outcome: Not Addressed Goal: OT- LTG toileting Description: OT - Patient will complete toileting with supervision while seated for clothing management with AD/AE if needed to improve self care function. 12/07/20191706 by Nicholas Sanon Outcome: Not Addressed Goal: OT- LTG meal preparation Description: OT - Patient will complete simple meal preparation from w/c level with modified independence including item retreival using AE while adhering to NWB precautions of RLE to improve self care function. 12/07/20191706 by Nicholas Sanon Outcome: Not Addressed Goal: OT- LTG precautions Description: OT - Patient will demonstrate NWB of RLE precaution management independently to improve safe and appropriate ADL/IADL management. 12/07/20191706 by Nicholas Sanon Outcome: Not Addressed Goal: OT- LTG Self-Care Other Description: OT- Patient will participate in caregiver/family training as needed to enhance a safe return to home environment by time of discharge, including education on fall prevention, HEP, and adaptive equipment needs/DME. 12/07/20191706 by Nicholas Sanon Outcome: Not Addressed Problem: Mobility - Impaired Goal: OT- STG toilet transfer Description: OT - Patient will complete toilet transfer with slide board to BSC with contact guard assist if needed in preparation for ADL's. 12/07/20191706 by Nicholas Sanon Outcome: Not Addressed Goal: OT- LTG toilet transfer Description: OT - Patient will complete toilet transfer with slide board to BSC with modified independence needed in preparation for ADL's. 12/07/20191706 by Nicholas Sanon Outcome: Not Addressed Goal: OT- LTG Tub Transfer Description: OT - Patient will complete tub transfer with simulation of home set up with no device and extended tub bench with minimal assit in preparation for ADL's. 12/07/20191706 by Nicholas Sanon Outcome: Not Addressed Problem: Impaired Strength Goal: OT- LTG Strength Other Description: OT- Patient will tolerate 15- 20 minutes of BUE strengthening, demonstrating independence with HEP by time of discharge, in order to improve strength necessary for functional transfers in preparation for ADLs 12/07/20191706 by Nicholas Sanon Outcome: Not Addressed Problem: Impaired Neurologic Function Goal: OT- LTG static standing balance Description: OT - Patient will complete static standing balance activity for 5 mins while adhering to precautions with AD with contact guard assit in preparation for ADL's. 12/07/20191706 by Nicholas Sanon Outcome: Not Addressed Problem: Mobility - Impaired Goal: OT- LTG Mobility Other Description: OT- Patient will complete stand pivot transfer with AD while adhering to NWB precautions of RLE with contact guard assist to improve independence for ADLs. Outcome: Not Addressed Associated Problem(s): Mixed hyperlipidemia Statin. Associated Problem(s): JAYDEN (obstructive sleep apnea) CPAP Associated Problem(s): 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) Stable. Associated Problem(s): Osteomyelitis (HCC) Discharge on abx per ID. Problem: Actual or potential alteration in health Goal: Knowledge of Enviroment Outcome: Met Problem: Pressure Ulcer - Risk of Goal: Absence of pressure ulcer Outcome: Met Problem: Falls, Risk of Goal: Absence of falls Outcome: Met Problem: Actual or potential alteration in health Goal: Absence of healthcare acquired conditions Outcome: Partially Met Goal: Knowledge of Interdisciplinary Plan of Care Outcome: Partially Met Problem: Mobility - Impaired Goal: Able to achieve maximum mobility level Outcome: Partially Met Note: Pt. Transferred to bed with assist of 2 using an arjo lift Problem: Plan for Discharge Goal: Knowledge of discharge plan and instructions Outcome: Partially Met Problem: Serum Glucose Level - Abnormal Goal: Glucose level within specified parameters Outcome: Partially Met [facility] Nurse Notes documented in this encounter Pt discharged to front door per protocol Pt discharge instructions given. Pt verbalizes understanding. When given report this morning, PM nurse notified this nurse that she placed pt on 3L of o2 for an o2 sat of 80%. This nurse weaned pt off of o2. Pt sating at 91% on room air. Pt remains on continuous pulse ox at this time. POC updated. POC reviewed and updated. Brief Post Operative Note Patient Name: Dyllan Huertas : 1960 (59 y.o.) Date of Service: 05/01/2020 CSN: [id number] Procedure(s): RIGHT ANKLE ARTHRODESIS, SUBTALAR ARTHRODESIS RIGHT ANKLE Pre-Operative Diagnoses: * Charcot's joint of ankle, right [M14.671] Post-Operative Diagnoses: * Charcot's joint of ankle, right [M14.671] Surgeon(s) and Role: * Alena Mora DPM - Primary * Nupur Davis DPM - Assisting Anesthesiologist: Rohit Thomas MD GENERAL FARMWORKER: Carley Early CRNA; Victorina Aparicio CRNA; Bev Hartman CRNA Director Of Programming: Richi Verduzco RN; Costa Jackman RN; Jody Vidales RN; Zahira Tinoco RN Car Supplier: Valorie Hassan, TECHNOLOGIST; Jamie Norton, TECHNOLOGIST Director Of Programming Relief: Delmy Valentine RN Scrub Person: Kyung Bernardo; ST Halle Scrub Person Assist: ST Manohar Operative findings: Consistent with preoperatives diagnosis. Intra and immediate post-operative complications: None Type of anesthesia used: General Estimated blood loss: 100 mL Estimated urine output: 550 mL Specimen(s): * No specimens in log * Implant(s): Implant Name Type Inv. Item Serial No. Production Tool Engineer Lot No. LRB No. Used Action WIRE K 2MM PATTIE - [id number] WIRE K 2MM PATTIE SYNTHES LT Right 5 Implanted BONE 1CC CELLUAR MATRIX BuzzElement - [id number] Bone BONE 1CC CELLUAR MATRIX [facility] [id number] Right 1 Implanted NAIL 10 X 300MM TI HEIDI RETRO ANTEGRADE FEM EX STERL - S. NAIL 10 X 300MM TI HEIDI RETRO ANTEGRADE FEM EX STERL . SYNTHES LT [id number] Right 1 Implanted SCREW 6.5 X 100MM HEIDI 16MM THRD [id number] - S. SCREW 6.5 X 100MM HEIDI 16MM THRD 208.415 . SYNTHES LT . Right 1 Implanted SCREW 5 X 30MM TI LOCKING T25 STRDRV IM NAIL - S. SCREW 5 X 30MM TI LOCKING T25 STRDRV IM NAIL . SYNTHES LT . Right 1 Implanted CAP END 0MM TI EXT T40 STRDRV RETRO FEM NAIL SPRL BLD - S. CAP END 0MM TI EXT T40 STRDRV RETRO FEM NAIL SPRL BLD . SYNTHES LT . Right 1 Implanted BLADE 90MM TI SPIRAL RETRO FEM NAIL EX - S. BLADE 90MM TI SPIRAL RETRO FEM NAIL EX . SYNTHES LT . Right 1 Implanted Drain(s): * No LDAs found * Wound(s): Wound (Outpatient Only) 03/31/19 Foot Anterior;Right;Plantar (Active) Wound 05/01/20 Surgical Wound Foot Right (Active) Alena Mora DPM 05/01/2020 7:44 PM documented in this encounter DISCHARGE PLAN PROGRESS NOTE Date: 11/24/2019 Time: 4:19 PM Patient Name: Dyllan Huertas Date of : 1960 Sex: Male Day of discharge bundle sent to the [facility] via In basket. GABRIELE Rich Discharge Readiness Expected Discharge Date: 11/17/19 Barriers to Discharge: Pre-certification [facility] Disposition D/C Disposition: [facility] Facility Agency/Destination: [facility] Estimated Length of Stay (ELOS): (42) PAS/RR: PAS Options Reviewed: List provided Reason for Choice: Patient/Family preference Anticipated Discharge Plan Anticipated HME: None Anticipated Facility Type: [facility]P facility POC reviewed and updated. Treatment and care continues. POC reviewed and updated. Treatment and care continues. POC reviewed and updated. Treatment and care continues. Pt has not voided since arrival to unit. Pt denies any pelvic discomfort or feeling need to void. Abdomen soft and undistended. Notified Antonia Julio NP with new order given Pt c/o Rt foot, Rt shoulder and buttocks pain; rates pain at 7/10. Notified Nader Julio NP with new order given POC initiated Brief Post Operative Note Patient Name: Dyllan Huertas : 1960 (59 y.o.) Date of Service: 11/20/2019 CSN: [id number] Procedure(s): RIGHT FOOT RECONSTRUCTION WITH APPLICATION OF CIRCULAR STATIC EXTERNAL FIXATION Pre-Operative Diagnoses: * Non-healing chronic ulceration, right foot Post-Operative Diagnoses: * Same as Pre-Op Diagnosis Surgeon(s) and Role: * Alena Mora DPM - Primary * Nupur Davis DPM - Assisting Anesthesiologist: Rohit Thomas MD GENERAL FARMWORKER: Sherly Marinelli, ALEXANDRE Director Of Programming: Teresa Mak RN; Dave Evans RN Car Supplier: Valorie Rae, TECHNOLOGIST; Candy Weber, TECHNOLOGIST; Jamie Norton TECHNOLOGIST Director Of Programming Relief: Krish Hutchison RN; Sera Lopez RN Scrub Person: Katie Beyer LPN Safety Assistant: CELE Barnes Operative findings: 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 Rocker bottom foot deformity. Good Bleeding Tissue. Hard bone. No abscess or purulence. The hindfoot was brought out of Equinus and stabilized. A static circular external fixation was applied to right lower extremity. Intra and immediate post-operative complications: None Type of anesthesia used: General Estimated blood loss: 100 mL Estimated urine output: 900 mL Specimen(s): ID Type Source Tests Collected by Time Destination 1 : Midfoot bone culture Bone Foot, Right BONE AEROBIC CULTURE, BONE ANAEROBIC CULTURE Alena Mora DPM 11/20/2019 1345 2 : Right foot midfoot tissue culture Tissue Foot, Right TISSUE AEROBIC CULTURE, TISSUE ANAEROBIC CULTURE Alena Mora DPM 11/20/2019 1346 Implant(s): Implant Name Type Inv. Item Serial No. Production Tool Engineer Lot No. LRB No. Used Action SCREW 5 X 200MM CHATONZ SELF-DRILL 80MM THRD - SN/A SCREW 5 X 200MM SCHANZ SELF- DRILL 80MM THRD N/A SYNTHES LT LOAD NUMBER NOV 18, 2019 Right 1 Implanted Synthes 3.2 Kwire 292.69 N/A LOAD NUMBER NOV 17, 2019 Right 1 Implanted Synthes 2.5 kwire 292.28 N/A Synthes LOAD NUMBER NOV 20 2019 Right 3 Implanted WIRE 2MM [place] TIP - [id number] WIRE 2MM [place]MO[place] HALF [place] TIP SYNTHES LT Right 7 Implanted SCREW 5 X 175MM SCHANZ SELF-DRILL 60MM THRD - [id number] SCREW 5 X 175MM SCHANZ SELF-DRILL 60MM THRD SYNTHES LT Right 1 Implanted Drain(s): [REMOVED] Urethral Catheter Double-lumen 16 Fr. (Removed) Wound(s): Wound (Outpatient Only) 03/31/19 Foot Anterior;Right;Plantar (Active) Wound 11/20/19 Surgical Wound Leg Right (Active) Reassessment Unchd 11/20/2019 7:30 PM Dressing Status Clean;Dry;Intact 11/20/2019 7:20 PM Drainage Amount None 11/20/2019 7:20 PM Wound Bed Characteristics EDDI (Unable to assess) 11/20/2019 7:20 PM Alena Mora DPM 11/20/2019 7:42 PM N Judge notified of need for h and p and informed consent. Also notified of need for pre op orders documented in this encounter Brief Post Operative Note Patient Name: Dyllan Huertas : 1960 (58 y.o.) Date of Service: 01/25/2019 CSN: [id number] Procedure(s): ARTHROPLASTY 2ND TOE RIGHT FOOT Pre-Operative Diagnoses: * HAMMERTOE OF RIGHT FOOT Post-Operative Diagnoses: same Surgeon(s) and Role: * Rosa M Robles DPM - Primary Anesthesiologist: Dean Sherwood MD GENERAL FARMWORKER: Sherly Marinelli CRNA Director Of Programming: Elizabeth Diaz RN Scrub Person: Sera Way RN Operative findings: No bone infection noted Intra and immediate post-operative complications: none Type of anesthesia used: Monitor Anesthesia Care Estimated blood loss: 1 mL Estimated urine output: Refer to surgical log Specimen(s): * No specimens in log * Implant(s): * No implants in log * Drain(s): Wound(s): Incision 01/25/19 Foot Right (Active) Reassessment Unchd 01/25/2019 9:30 AM Rosa M Robles DPM 01/25/2019 9:39 AM documented in this encounter jace wore surgical mask and gloves. Patient wore surgical mask documented in this encounter Reason for Visit (unrecogniz ed section and content) Reason Comments Wound Check Specialty Diagnoses / Procedures Referred By Thierno santacruz Referred To Contact Wound Care Diagnoses Chronic ulcer of right leg with fat layer exposed (HCC) Alena Mora DPM [address] [place] [address] Alena Mora DPM [address] [place] [address] Referral ID Status Reason Start Date Expiration Date V isits Requested Visits Authorized [id number] Pending Review 06/09/2024 06/09/2025 1 1 Reason Comments Occupational Therapy Status Reason Specialty Diagnoses / Procedures Referre d By Contact Referred To Contact Reason Comments Weakness Status Reason Specialty Diagnoses / Procedures Referre d By Contact Referred To Contact Diagnoses Right plantar foot infection & surgical revision Status Reason Specialty Diagnoses / Procedures Referre d By Contact Referred To Contact Status Reason Specialty Diagnoses / Procedures Referre d By Contact Referred To Contact Diagnoses Right plantar foot infection & surgical revision Status Reason Specialty Diagnoses / Procedures Referre d By Contact Referred To Contact Diagnoses Charcot's joint of ankle, right Charcot's joint of ankle, right [M14.671] Procedures RIGHT ANKLE ARTHRODESIS, SUBTALAR ARTHRODESIS RIGHT ANKLE Status Reason Specialty Diagnoses / Procedures Re ferred By Contact Referred To Contact Diagnoses CHARCOT, ULCER RIGHT FOOT Procedures RIGHT FOOT RECONSTRUCTION WITH APPLICATION OF CIRCULAR STATIC EXTERNAL FIXATION Status Reason Specialty Diagnoses / Procedures Referre d By Contact Referred To Contact Diagnoses HAMMERTOE OF RIGHT FOOT Procedures ARTHROPLASTY 2ND TOE RIGHT FOOT Status Reason Specialty Diagnoses / Procedures Referre d By Contact Referred To Contact Closed Radiology Diagnoses 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 Humera sotomayor- PCP A1c was 6.9% Wound Check left ft blister type wound medial aspect of the arch Reason Comments Wound Check LeftUsing KB at home with ZECHARIAH wrap compression Reason Comments Wound Check Left leg Reason Comments Wound Check Left leg and foot wo unds Reason Comments Wound Check Left foot Reason Comments Nail Care Reason Comments Nail Care Diabetic nail care- does not have a new A1c will have an update in [facility]- Dr. Aguilar- Wound Check Patient has wounds t o bilateral chins from stacking wood- stated they are healing with Honey treatment at home does not want them looked at Reason Comments Wound Check FU wounds on both sh ins. Had been using kb and medihoney on wounds. Reason Comments Nail Care DiabeticDr. Vargas LS: March1C: 7.1 Reason Comments Nail Care Nail care Reason Comments Nail Care Diabetic nail care l ast a1c 6.4 Reason Comments Nail Care Diabetic Nailcare A1 C: 7.1 Reason Comments Other Encounter for screen ing for malignant neoplasm of colon Reason Comments NailTrim No other complaints. Scheduled nail trim. Diabetes No issues with diabe ricco presently. Reason Comments Nail Care NAIL CARE Reason Comments Establish Care MEDICAL SURGICAL TECH/EST CARE Med Refill Patient states he ge ts his insulin OTC at [facility]; does not need Rx Reason Comments Nail Care A1c August 2023 7. 9 Reason Comments Wound Check Patient presents for bilateral wounds to legs, feet. Patient states that he noticed the wounds 05/21, went to ER same day. Patient has wound to second toe left foot, 05/30. Patient states he took off sock, saw wound. Last A1c 10.3 Last sugar reading 209 Specialty Diagnoses / Procedures Referred By Thierno santacruz Referred To Contact Referral ID Status Reason Start Date Expiration Date Visits Re quested Visits Authorized [id number] 1 1 Reason Comments Hospital Follow-up Just saw patient for regular office visitHere for hospital follow up from 06/23LT foot 2nd toe tip amputation Reason Comments Follow-up 3mo follow up Specialty Diagnoses / Procedures Referred By Thierno santacruz Referred To Contact Primary Care Procedures Follow Up In Primary Care - Established Jace Reeder, [address] [place] [address] Phone: tel: fax: Referral ID Status Reason Start Date Expiration Date V isits Requested Visits Authorized [id number] Authorized 04/17/2024 04/17/2025 1 1 Reason Comments Wound Check Reason Comments Follow-up 3 month Specialty Diagnoses / Procedures Referred By Thierno santacruz Referred To Contact Primary Care Procedures Follow Up In Primary Care - Established Jace Reeder, [address] [place] [address] Referral ID Status Reason Start Date Expiration Date V isits Requested Visits Authorized [id number] Authorized 01/19/2024 01/18/2025 1 1 Reason Comments ER Follow-up Leg/scrotal swelling Reports recurring groin swelling Reason Comments Foot Ulcer Follow up left foot ulcer. Isela legs were wrapped with unna boots no concerns Blister Pt C/O blister burst on Rt foot second toe Reason Comments Follow-up R 3rd toe wound - to e wound is better- R foot has a new wound - L foot has new wound - pt has been applying betadine on both and put some silvercel on the L foot wound Reason Comments Wound Check Follow up bilateral edema and ulcers. Removed Profore dressings today. Patient states there was drainage through the dressing on the right leg starting Wednesday. Legs are red and odorous today. Dressing is stuck to right leg ulcer. Wetted with sterile saline to soften. Reason Comments Follow-up R leg ulcer -bilater al lower extremity edema - pt states that he has been applying silvercel and kb to the wounds - Reason Comments Wound Check Follow up bilateral leg edema and skin ulcers. Removed dressings today. Gauze and betadine were dried to the wound. Sprayed with saline. Reason Comments Follow-up Bilateral leg wounds - Reason Comments New Patient Visit New pt Specialty Diagnoses / Procedures Referred By Contac t Referred To Contact Diagnoses Sinus bradycardia Procedures ECG [address], [address] [place] [address] Phone: tel: fax: Referral ID Status Reason Start Date Expiration Date V isits Requested Visits Authorized [id number] Authorized 01/11/2025 01/11/2026 1 1 Reason Comments Wound Check 2 wk f/u wound L gre at toe and right 2nd toe. Reason Comments Wound Check 1 wk f/u L ft wound Reason Comments Wound Check 2 wk f/u b/l wound/c ulture results Reason Comments Wound Check 1 wk f/u wound Reason Comments Foot Ulcer Pressure ulcer of to e of left foot, stage 2 Reason Comments Wound Check 1 wk f/u isela toe ulc ers. Reason Comments Wound Check 1 wk f/u isela LE woun ds. Pt developed blister on rt lower leg , blister is draining, an has been applying Betadine, also states blister opened on left lower leg C/O open wound. Reason Comments Medicare Annual Wellness Visit Subsequen t MEDICARE WELLNESS + 2 MONTH F/U WITH LABS AND XRAY C-SPINE. Reason Comments Wound Check 1 wk f/u isela LE woun ds Reason Comments Follow-up Bilateral lower leg wounds Reason Comments Wound Check 1 wk f/u b/l leg wou nds/unnas boots Reason Comments Wound Check Follow up bilateral leg wounds. Reason Comments Follow-up Bilateral wound chec k - L 5th toe wound is draining - pt states that he has a new wound/blister on the L lower leg Reason Comments Follow-up Bilateral leg ulcers Reason Comments Wound Check Follow up bilateral foot/leg wound. Reason Comments Follow-up 6 WEEK F/U WITH BLOO D SUGAR LOG OR PreOp - Alice Garcia CNP - 11/10/2019 2:00 PM EST OR Notes (unrecognized secti on and content) ANESTHESIA PREPROCEDURE EVALUATION Physical Exam Airway Mallampati: IV Neck ROM: full Mouth opening: >3 FB Cardiovascular Rhythm: regular Pulmonary Breath sounds are clear to auscultation Neurological Mental Status: alert Dental Dental exam is normal and age appropriate Review of Systems / Medical History - No history of anesthetic complications Pulmonary Positive: sleep apnea (noncompliant) Neurological / Psychological Comment: Neuropathy Cardiovascular Positive: hypertension CAD, CABG/stent (CABG 2016) hyperlipidemia Gastrointestinal / Hepatic / Renal - negative Endocrine / Musculoskeletal Comment: Charcot foot right Positive: type 2 diabetes using insulin, hypothyroidism Other Negative: smoker and substance abuse documented in this encounter Visit Details Home Health Visit - Care Sivan n (unrecognized section and content) Visit Type -SN HH OASIS Disc harge Discipline -Mcfp Problems Problem Start Date Status Goals Interventions Abnormal Findings Disciplines: Mcfp, Physical Therapy, Occupational Therapy, Speech Therapy, Home Health Aide, Medical Social Work, Spiritual Care, Art Therapy, Massage Therapy, Registered Dietitian, Student - Medical Social Work 12/19/2019 Active 1 goal linked to scheduled/documented intervention 1 goal intervention scheduled/documented in this visit Abnormal Findings Disciplines: Mcfp, Physical Therapy, Occupational Therapy, Speech Therapy, Home Health Aide, Medical Social Work, Spiritual Care, Art Therapy, Massage Therapy, Registered Dietitian, Student - Medical Social Work 01/07/2020 Active 1 goal linked to scheduled/documented intervention 1 goal intervention scheduled/documented in this visit Home Medication Management Disciplines: Mcfp 01/07/2020 Active 1 goal linked to scheduled/documented intervention 3 goal interventions scheduled/documented in this visit Infection Prevention - Catheter Disciplines: Mcfp 02/20/2020 Active 1 goal linked to scheduled/documented intervention 1 goal intervention scheduled/documented in this visit Learning/Teaching Needs - Catheter Disciplines: Mcfp 02/20/2020 Active 1 goal linked to scheduled/documented intervention 1 goal intervention scheduled/documented in this visit Risk of Falls Disciplines: Mcfp, Physical Therapy, Occupational Therapy, Speech Therapy, Home Health Aide, Medical Social Work, Spiritual Care, Art Therapy, Massage Therapy, Registered Dietitian, Student - Medical Social Work 12/19/2019 Active 1 goal linked to scheduled/documented intervention 1 goal intervention scheduled/documented in this visit Skilled Assessment Disciplines: Mcfp 01/07/2020 Active 1 goal linked to scheduled/documented intervention 4 goal interventions scheduled/documented in this visit Goals Goal Associated Problem Outcome Goal Met? Visit Notes Assessment findings goal Abnormal Findings No Medication management goal Home Medication Management No Catheter infection prevention education goal Infection Prevention - Catheter No Urinary catheter education goal Learning/Teaching Needs - Catheter No Balance/Fall risk goal Risk of Falls No Rehospitalization goal Skilled Assessment No Interventions Intervention Associated Problem/Goal Status Variance Visit Notes Report abnormal assessment to physician Problem:Abnormal Findings Goal:Assessment findings goal Completed Medication box Problem:Home Medication Management Goal:Medication management goal Completed To assess correct delivery of medication to patient, Patient is able to teach back IV therapy process and use of curlin pump, Assess line patency, cap change tubing change and PICC dressing changes Skilled assessment medications Problem:Home Medication Management Goal:Medication management goal Completed Assess Patient ability to manage medications. Assess Patient knowledge of drug allergies, dose/route/frequency, new or changed medications, classification, reason for taking, effectiveness, drug interactions, food interactions, side effects/adverse reactions, contraindications, duplicative therapy, lab tests required, and ability to use pill box and/or medication list. Teach medication management Problem:Home Medication Management Goal:Medication management goal Completed Assess Patient ability to manage medications. Assess Patient knowledge of drug allergies, dose/route/frequency, new or changed medications, classification, reason for taking, effectiveness, drug interactions, food interactions, side effects/adverse reactions, contraindications, duplicative therapy, lab tests required, and ability to use pill box and/or medication list. Instruct infection prevention Problem:Infection Prevention - Catheter Goal:Catheter infection prevention education goal Completed Educate patient on s/sx of wound infection including increased redness or swelling around wound, increased drainage that may be purulent, foul smell or change in character of drainage, increased pain, no relief with pain medications and/or separation of wound edges. Instruct patient to notify SN and physician if experiencing any of these s/sx Instruct catheter care Problem:Learning/Teac [place] Needs - Catheter Goal:Urinary catheter education goal Completed Educate Patient/Caregiver on appropriate care of the urinary catheter. Educate the Patient/Caregiver to make sure the tubing of the catheter is not kinked, Ensure that the Patient/Caregiver understands that the catheter bag should never be more than 2/3 full and is to remain below the position of the bladder, Advise the Patient/Caregiver not to lie or sit on the catheter tubing, Encourage and advise prevention of constipation by eating a high fiber diet with an adequate fluid intake, Advise the Patient/Caregiver about the importance of washing the urethral meatus with un-perfumed soap and water during the daily bathing or showering routine and Advise the Patient/Caregiver to contact the SN if pain and discomfort occurs, no urine has drained for 8 or more hours or urine is leaking around the catheter. Instruct on fall prevention Problem:Risk of Falls Goal:Balance/Fall risk goal Completed Instruct on pain management techniques Problem:Skilled Assessment Goal:Rehospitalizatio n goal Completed Instruct Patient/Caregiver on pain management including diversion techniques, massage, heat therapy, ice therapy, relaxaton and rest as well as pain medication. Instruct on adherance to pain medication instructions, effectiveness, side effects and possible adverse effects. Ensure Patient/Caregiver can verbalize understanding and develop a specific personal plan on how they intend to manage pain. Medication box Problem:Skilled Assessment Goal:Rehospitalizatio n goal Completed Assessed medications and ensured that the current medication list is accurate. Checked for interactions among medications and reconciled any possible drug interactions. Ensured list of allergies is accurate and up to date. Provided education on all new medications including reason for use, proper dosage and possible side effects. Discused proper days and times for medication distribution and went over storage of medications and method of taking medications on a regular basis. Obtain pulse oximetry Problem:Skilled Assessment Goal:Rehospitalizatio n goal Completed Skilled observation and assessment general assessment Problem:Skilled Assessment Goal:Rehospitalizatio n goal Completed SN to perform general assessment to include height, weight, vital signs, and temperature; General assessment of systems: pulmonary, cardiovascular, neurologic, gastrointestinal, musculoskeletal, renal/urinary, integumentary and psychosocial/psychiatr ic/mental and report any abnormalities or concerns to the physician. Visit Details Visit Type -SN HH PRN/On-Yany l Visit Discipline -Mcfp Problems Problem Start Date Status Goals Interventions Abnormal Findings Disciplines: Mcfp, Physical Therapy, Occupational Therapy, Speech Therapy, Home Health Aide, Medical Social Work, Spiritual Care, Art Therapy, Massage Therapy, Registered Dietitian, Student - Medical Social Work 12/19/2019 Active 1 goal linked to scheduled/documented intervention 1 goal intervention scheduled/documented in this visit Abnormal Findings Disciplines: Mcfp, Physical Therapy, Occupational Therapy, Speech Therapy, Home Health Aide, Medical Social Work, Spiritual Care, Art Therapy, Massage Therapy, Registered Dietitian, Student - Medical Social Work 01/07/2020 Active 1 goal linked to scheduled/documented intervention 1 goal intervention scheduled/documented in this visit Home Medication Management Disciplines: Mcfp 12/19/2019 Active 1 goal linked to scheduled/documented intervention 3 goal interventions scheduled/documented in this visit Home Medication Management Disciplines: Mcfp 01/07/2020 Active 1 goal linked to scheduled/documented intervention 3 goal interventions scheduled/documented in this visit IV Administration Disciplines: Mcfp 12/19/2019 Active 1 goal linked to scheduled/documented intervention 1 goal intervention scheduled/documented in this visit IV Care-CVC Disciplines: Mcfp 12/19/2019 Active 1 goal linked to scheduled/documented intervention 5 goal interventions scheduled/documented in this visit IV Care-PICC Disciplines: Mcfp 01/07/2020 Active 1 goal linked to scheduled/documented intervention 1 goal intervention scheduled/documented in this visit Learning/Teaching Needs - IV Therapy Disciplines: Mcfp 12/19/2019 Active 1 goal linked to scheduled/documented intervention 2 goal interventions scheduled/documented in this visit Learning/Teaching Needs - IV Therapy Disciplines: Mcfp 01/07/2020 Active 1 goal linked to scheduled/documented intervention 2 goal interventions scheduled/documented in this visit Post-op care Disciplines: Mcfp 12/19/2019 Active 1 goal linked to scheduled/documented intervention 2 goal interventions scheduled/documented in this visit Risk of Falls Disciplines: Mcfp, Physical Therapy, Occupational Therapy, Speech Therapy, Home Health Aide, Medical Social Work, Spiritual Care, Art Therapy, Massage Therapy, Registered Dietitian, Student - Medical Social Work 12/19/2019 Active 1 goal linked to scheduled/documented intervention 1 goal intervention scheduled/documented in this visit Skilled Assessment Disciplines: Mcfp 12/19/2019 Active 1 goal linked to scheduled/documented intervention 2 goal interventions scheduled/documented in this visit Skilled Assessment Disciplines: Mcfp 01/07/2020 Active 1 goal linked to scheduled/documented intervention 4 goal interventions scheduled/documented in this visit Goals Goal Associated Problem Outcome Goal Met? Visit Notes Assessment findings goal Abnormal Findings No Medication management goal Home Medication Management No Infusion education goal IV Administration No Infusion education goal IV Care-CVC No Infusion education goal IV Care-PICC No Infusion safety goal Learning/Teaching Needs - IV Therapy No Post-op care goal Post-op care No Balance/Fall risk goal Risk of Falls No Rehospitalization goal Skilled Assessment No Interventions Intervention Associated Problem/Goal Status Variance Visit Notes Report abnormal assessment to physician Problem:Abnormal Findings Goal:Assessment findings goal Completed Medication box Problem:Home Medication Management Goal:Medication management goal Completed Skilled assessment medications Problem:Home Medication Management Goal:Medication management goal Completed Teach medication management Problem:Home Medication Management Goal:Medication management goal Completed Medication box Problem:Home Medication Management Goal:Medication management goal Completed . IV Antibiotics infusion-gravity Problem:IV Administration Goal:Infusion education goal Completed Antimicrobial Patch change Problem:IV Care-CVC Goal:Infusion education goal Completed CVC Blood Draw Problem:IV Care-CVC Goal:Infusion education goal Completed CVC Flush Problem:IV Care-CVC Goal:Infusion education goal Completed Change IV Cap Problem:IV Care-CVC Goal:Infusion education goal Completed IV PRN Visits Problem:IV Care-CVC Goal:Infusion education goal Completed PICC Removal Problem:IV Care-PICC Goal:Infusion education goal Completed Instruct on IV complications Problem:Learning/Teac [place] Needs - IV Therapy Goal:Infusion safety goal Completed Instruct on IV supplies Problem:Learning/Teac [place] Needs - IV Therapy Goal:Infusion safety goal Completed Wound care Problem:Post-op care Goal:Post-op care goal Completed with variance Task already performed Instruct on the signs and symptoms of infection Problem:Post-op care Goal:Post-op care goal Completed Instruct on fall prevention Problem:Risk of Falls Goal:Balance/Fall risk goal Completed Instruct on pain management techniques Problem:Skilled Assessment Goal:Rehospitalizatio n goal Completed Skilled observation and assessment general assessment Problem:Skilled Assessment Goal:Rehospitalizatio n goal Completed Medication box Problem:Skilled Assessment Goal:Rehospitalizatio n goal Completed Obtain pulse oximetry Problem:Skilled Assessment Goal:Rehospitalizatio n goal Completed Visit Details Visit Type -SCRAP STRIPPER HAND Routine Visi t Discipline -Physical Therapy Problems Problem Start Date Status Goals Interventions AP03- Decreased Knowledge of Edema Control Disciplines: Physical Therapy 12/23/2019 Active 1 goal linked to scheduled/documented intervention 1 goal intervention scheduled/documented in this visit Abnormal Findings Disciplines: Mcfp, Physical Therapy, Occupational Therapy, Speech Therapy, Home Health Aide, Medical Social Work, Spiritual Care, Art Therapy, Massage Therapy, Registered Dietitian, Student - Medical Social Work 12/19/2019 Active 1 goal linked to scheduled/documented intervention 1 goal intervention scheduled/documented in this visit PT13- Abnormal Posture Disciplines: Physical Therapy 12/23/2019 Active 1 goal linked to scheduled/documented intervention 1 goal intervention scheduled/documented in this visit PT14- Decreased Strength Disciplines: Physical Therapy 12/23/2019 Active 1 goal linked to scheduled/documented intervention 1 goal intervention scheduled/documented in this visit PT16- Decreased knowledge of Home Exercise Program Disciplines: Physical Therapy 12/23/2019 Active 1 goal linked to scheduled/documented intervention 1 goal intervention scheduled/documented in this visit PT19- Decreased Transfer Ability Disciplines: Physical Therapy 12/23/2019 Active 1 goal linked to scheduled/documented intervention 1 goal intervention scheduled/documented in this visit PT24- Decreased Balance/Increased Fall Risk Disciplines: Physical Therapy 12/23/2019 Active 1 goal linked to scheduled/documented intervention 1 goal intervention scheduled/documented in this visit Risk of Falls Disciplines: Mcfp, Physical Therapy, Occupational Therapy, Speech Therapy, Home Health Aide, Medical Social Work, Spiritual Care, Art Therapy, Massage Therapy, Registered Dietitian, Student - Medical Social Work 12/19/2019 Active 1 goal linked to scheduled/documented intervention 1 goal intervention scheduled/documented in this visit Goals Goal Associated Problem Outcome Goal Met? Visit Notes Edema education goal AP03- Decreased Knowledge of Edema Control No Assessment findings goal Abnormal Findings No Posture goal PT13- Abnormal Posture No Strength goal PT14- Decreased Strength No HEP education goal PT16- Decreased knowledge of Home Exercise Program No Transfer goal PT19- Decreased Transfer Ability No Balance/Fall risk goal PT24- Decreased Balance/Increased Fall Risk No Balance/Fall risk goal Risk of Falls No Interventions Intervention Associated Problem/Goal Status Variance Visit Notes Assess/Instruct in edema management techniques Problem:AP03- Decreased Knowledge of Edema Control Goal:Edema education goal Scheduled Report abnormal assessment to physician Problem:Abnormal Findings Goal:Assessment findings goal Scheduled Assess/Instruct in functional positioning to improve/manage abnormal tone Problem:PT13- Abnormal Posture Goal:Posture goal Scheduled Patient needed educated with correct posture when standing to improve with transfers and gait to increase with safety. Educated patient with head and shoulder placement to increase with awareness with ADLs Assess/Instruct in therapeutic exercises and perform manual techniques to improve functional ROM. Problem:PT14- Decreased Strength Goal:Strength goal Scheduled Patient performed seated strengthening exercises to lLE to improve with transfer safety in home and increasing with gait safety with less assistance from family. Patient was challenged with hip, quad and ankle strengthening exercise to improve with gait duration and safety with exiting and entering home. Cued patient with importance of posture and progressing with full ROM to improve with benefit of all strengthening exercise with patient showing increase in HR to 106bmp and requiring a rest break PT establish or upgrade home program Problem:PT16- Decreased knowledge of Home Exercise Program Goal:HEP education goal Scheduled Reviewed HEP with patient and educated patient with importance of completing daily to reach LTGs and return to prior level of safety in home. Educated patient with importance of LLE strengthening and stretching program PT transfer training Problem:PT19- Decreased Transfer Ability Goal:Transfer goal Scheduled pt refused Assess/Instruct in balance and fall prevention techniques Problem:PT24- Decreased Balance/Increased Fall Risk Goal:Balance/Fall risk goal Scheduled pt refused Instruct on fall prevention Problem:Risk of Falls Goal:Balance/Fall risk goal Scheduled Visit Details Visit Type -SN IV Therapy Ro eugenene-Billable Discipline -Mcfp Problems Problem Start Date Status Goals Interventions Abnormal Findings Disciplines: Mcfp, Physical Therapy, Occupational Therapy, Speech Therapy, Home Health Aide, Medical Social Work, Spiritual Care, Art Therapy, Massage Therapy, Registered Dietitian, Student - Medical Social Work 12/19/2019 Active 1 goal linked to scheduled/documented intervention 1 goal intervention scheduled/documented in this visit Home Medication Management Disciplines: Mcfp 12/19/2019 Active 1 goal linked to scheduled/documented intervention 3 goal interventions scheduled/documented in this visit IV Administration Disciplines: Mcfp 12/19/2019 Active 1 goal linked to scheduled/documented intervention 1 goal intervention scheduled/documented in this visit IV Care-CVC Disciplines: Mcfp 12/19/2019 Active 1 goal linked to scheduled/documented intervention 5 goal interventions scheduled/documented in this visit Learning/Teaching Needs - IV Therapy Disciplines: Mcfp 12/19/2019 Active 1 goal linked to scheduled/documented intervention 2 goal interventions scheduled/documented in this visit Post-op care Disciplines: Mcfp 12/19/2019 Active 1 goal linked to scheduled/documented intervention 2 goal interventions scheduled/documented in this visit Risk of Falls Disciplines: Mcfp, Physical Therapy, Occupational Therapy, Speech Therapy, Home Health Aide, Medical Social Work, Spiritual Care, Art Therapy, Massage Therapy, Registered Dietitian, Student - Medical Social Work 12/19/2019 Active 1 goal linked to scheduled/documented intervention 1 goal intervention scheduled/documented in this visit Skilled Assessment Disciplines: [facility]fp 12/19/2019 Active 1 goal linked to scheduled/documented intervention 2 goal interventions scheduled/documented in this visit Goals Goal Associated Problem Outcome Goal Met? Visit Notes Assessment findings goal Abnormal Findings No Medication management goal Home Medication Management No Infusion education goal IV Administration No Infusion education goal IV Care-CVC No Infusion safety goal Learning/Teaching Needs - IV Therapy No Post-op care goal Post-op care No Balance/Fall risk goal Risk of Falls No Rehospitalization goal Skilled Assessment No Interventions Intervention Associated Problem/Goal Status Variance Visit Notes Report abnormal assessment to physician Problem:Abnormal Findings Goal:Assessment findings goal Completed Medication box Problem:Home Medication Management Goal:Medication management goal Completed Assessed medications and ensured that the current medication list is accurate. Checked for interactions among medications and reconciled any possible drug interactions. Ensured list of allergies is accurate and up to date. Provided education on all new medications including reason for use, proper dosage and possible side effects. Discused proper days and times for medication distribution and went over storage of medications and method of taking medications on a regular basis. Skilled assessment medications Problem:Home Medication Management Goal:Medication management goal Completed Assess Patient ability to manage medications. Assess Patient knowledge of drug allergies, dose/route/frequency, new or changed medications, classification, reason for taking, effectiveness, drug interactions, food interactions, side effects/adverse reactions, contraindications, duplicative therapy, lab tests required, and ability to use pill box and/or medication list. Teach medication management Problem:Home Medication Management Goal:Medication management goal Completed Assess Patient ability to manage medications. Assess Patient knowledge of drug allergies, dose/route/frequency, new or changed medications, classification, reason for taking, effectiveness, drug interactions, food interactions, side effects/adverse reactions, contraindications, duplicative therapy, lab tests required, and ability to use pill box and/or medication list. IV Antibiotics infusion-gravity Problem:IV Administration Goal:Infusion education goal Completed Antimicrobial Patch change Problem:IV Care-CVC Goal:Infusion education goal Completed CVC Blood Draw Problem:IV Care-CVC Goal:Infusion education goal Completed CVC Flush Problem:IV Care-CVC Goal:Infusion education goal Completed Change IV Cap Problem:IV Care-CVC Goal:Infusion education goal Completed IV PRN Visits Problem:IV Care-CVC Goal:Infusion education goal Completed Instruct on IV complications Problem:Learning/Teach ing Needs - IV Therapy Goal:Infusion safety goal Completed Instruct on IV supplies Problem:Learning/Teach ing Needs - IV Therapy Goal:Infusion safety goal Completed Instruct on the signs and symptoms of infection Problem:Post-op care Goal:Post-op care goal Completed Educate patient on s/sx of wound infection including increased redness or swelling around wound, increased drainage that may be purulent, foul smell or change in character of drainage, increased pain, no relief with pain medications and/or separation of wound edges. Instruct patient to notify SN and physician if experiencing any of these s/sx Wound care Problem:Post-op care Goal:Post-op care goal Completed Dressing remains in place and non removeable Instruct on fall prevention Problem:Risk of Falls Goal:Balance/Fall risk goal Completed Instruct on pain management techniques Problem:Skilled Assessment Goal:Rehospitalization goal Completed Instruct Patient/Caregiver on pain management including diversion techniques, massage, heat therapy, ice therapy, relaxaton and rest as well as pain medication. Instruct on adherance to pain medication instructions, effectiveness, side effects and possible adverse effects. Ensure Patient/Caregiver can verbalize understanding and develop a specific personal plan on how they intend to manage pain. Skilled observation and assessment general assessment Problem:Skilled Assessment Goal:Rehospitalization goal Completed SN to perform general assessment to include height, weight, vital signs, and temperature; General assessment of systems: pulmonary, cardiovascular, neurologic, gastrointestinal, musculoskeletal, renal/urinary, integumentary and psychosocial/psychiat jose/mental and report any abnormalities or concerns to the physician. Visit Details Visit Type -SN HH Routine Vi sit Discipline -[facility] Problems Problem Start Date Status Goals Interventions Abnormal Findings Disciplines: [facility], Physical Therapy, Occupational Therapy, Speech Therapy, Home Health Aide, Medical Social Work, Spiritual Care, Art Therapy, Massage Therapy, Registered Dietitian, Student - Medical Social Work 12/19/2019 Active 1 goal linked to scheduled/documented intervention 1 goal intervention scheduled/documented in this visit Abnormal Findings Disciplines: [facility], Physical Therapy, Occupational Therapy, Speech Therapy, Home Health Aide, Medical Social Work, Spiritual Care, Art Therapy, Massage Therapy, Registered Dietitian, Student - Medical Social Work 01/07/2020 Active 1 goal linked to scheduled/documented intervention 1 goal intervention scheduled/documented in this visit Home Medication Management Disciplines: [facility] 01/07/2020 Active 1 goal linked to scheduled/documented intervention 3 goal interventions scheduled/documented in this visit IV Administration Disciplines: [facility]fp 12/19/2019 Active 1 goal linked to scheduled/documented intervention 1 goal intervention scheduled/documented in this visit IV Care-CVC Disciplines: [facility]fp 12/19/2019 Active 1 goal linked to scheduled/documented intervention 5 goal interventions scheduled/documented in this visit IV Care-PICC Disciplines: [facility]fp 01/07/2020 Active 1 goal linked to scheduled/documented intervention 1 goal intervention scheduled/documented in this visit Learning/Teaching Needs - IV Therapy Disciplines: [facility]fp 12/19/2019 Active 1 goal linked to scheduled/documented intervention 2 goal interventions scheduled/documented in this visit Learning/Teaching Needs - IV Therapy Disciplines: [facility]fp 01/07/2020 Active 1 goal linked to scheduled/documented intervention 2 goal interventions scheduled/documented in this visit Post-op care Disciplines: [facility] 12/19/2019 Active 1 goal linked to scheduled/documented intervention 2 goal interventions scheduled/documented in this visit Risk of Falls Disciplines: [facility], Physical Therapy, Occupational Therapy, Speech Therapy, Home Health Aide, Medical Social Work, Spiritual Care, Art Therapy, Massage Therapy, Registered Dietitian, Student - Medical Social Work 12/19/2019 Active 1 goal linked to scheduled/documented intervention 1 goal intervention scheduled/documented in this visit Skilled Assessment Disciplines: [facility]fp 01/07/2020 Active 1 goal linked to scheduled/documented intervention 4 goal interventions scheduled/documented in this visit Interventions Intervention Associated Problem/Goal Status Variance Visit Notes Report abnormal assessment to physician Problem:Abnormal Findings Goal:Assessment findings goal Completed Medication box Problem:Home Medication Management Goal:Medication management goal Completed Assessed medications and ensured that the current medication list is accurate. Checked for interactions among medications and reconciled any possible drug interactions. Ensured list of allergies is accurate and up to date. Provided education on all new medications including reason for use, proper dosage and possible side effects. Discused proper days and times for medication distribution and went over storage of medications and method of taking medications on a regular basis. Skilled assessment medications Problem:Home Medication Management Goal:Medication management goal Completed Skilled observation and assessment of patient's response to new medications, changed medications, change in treatment plan, and for s/s of complications, or exacerbation of disease process. Teach medication management Problem:Home Medication Management Goal:Medication management goal Completed Assess Patient ability to manage medications. Assess Patient knowledge of drug allergies, dose/route/frequency, new or changed medications, classification, reason for taking, effectiveness, drug interactions, food interactions, side effects/adverse reactions, contraindications, duplicative therapy, lab tests required, and ability to use pill box and/or medication list. IV Antibiotics infusion-gravity Problem:IV Administration Goal:Infusion education goal Completed Antimicrobial Patch change Problem:IV Care-CVC Goal:Infusion education goal Completed CVC Blood Draw Problem:IV Care-CVC Goal:Infusion education goal Completed CVC Flush Problem:IV Care-CVC Goal:Infusion education goal Completed Change IV Cap Problem:IV Care-CVC Goal:Infusion education goal Completed IV PRN Visits Problem:IV Care-CVC Goal:Infusion education goal Completed PICC Removal Problem:IV Care-PICC Goal:Infusion education goal Completed Instruct on IV complications Problem:Learning/Teach ing Needs - IV Therapy Goal:Infusion safety goal Completed Instruct on IV supplies Problem:Learning/Teach ing Needs - IV Therapy Goal:Infusion safety goal Completed Instruct on the signs and symptoms of infection Problem:Post-op care Goal:Post-op care goal Completed Educate patient on s/sx of wound infection including increased redness or swelling around wound, increased drainage that may be purulent, foul smell or change in character of drainage, increased pain, no relief with pain medications and/or separation of wound edges. Instruct patient to notify SN and physician if experiencing any of these s/sx Wound care Problem:Post-op care Goal:Post-op care goal Completed Cleanse with NS, pat dry, apply cellerate mixed with bactracin to the right foot plantar wound, followed by 4 x4s and 2 Kerlix. Instruct on fall prevention Problem:Risk of Falls Goal:Balance/Fall risk goal Completed Instruct on pain management techniques Problem:Skilled Assessment Goal:Rehospitalization goal Completed Instruct Patient/Caregiver on pain management including diversion techniques, massage, heat therapy, ice therapy, relaxaton and rest as well as pain medication. Instruct on adherance to pain medication instructions, effectiveness, side effects and possible adverse effects. Ensure Patient/Caregiver can verbalize understanding and develop a specific personal plan on how they intend to manage pain. Medication box Problem:Skilled Assessment Goal:Rehospitalization goal Completed Assessed medications and ensured that the current medication list is accurate. Checked for interactions among medications and reconciled any possible drug interactions. Ensured list of allergies is accurate and up to date. Provided education on all new medications including reason for use, proper dosage and possible side effects. Discused proper days and times for medication distribution and went over storage of medications and method of taking medications on a regular basis. Obtain pulse oximetry Problem:Skilled Assessment Goal:Rehospitalization goal Completed Skilled observation and assessment general assessment Problem:Skilled Assessment Goal:Rehospitalization goal Completed SN to perform general assessment to include height, weight, vital signs, and temperature; General assessment of systems: pulmonary, cardiovascular, neurologic, gastrointestinal, musculoskeletal, renal/urinary, integumentary and psychosocial/psychiat jose/mental and report any abnormalities or concerns to the physician. Visit Details Visit Type -SN HH OASIS Rece rt Discipline -[facility] Interventions Intervention Associated Problem/Goal Status Variance Visit Notes Report abnormal assessment to physician Problem:Abnormal Findings Goal:Assessment findings goal Completed Medication box Problem:Home Medication Management Goal:Medication management goal Completed Assessed medications and ensured that the current medication list is accurate. Checked for interactions among medications and reconciled any possible drug interactions. Ensured list of allergies is accurate and up to date. Provided education on all new medications including reason for use, proper dosage and possible side effects. Discused proper days and times for medication distribution and went over storage of medications and method of taking medications on a regular basis. Skilled assessment medications Problem:Home Medication Management Goal:Medication management goal Completed Skilled observation and assessment of patient's response to new medications, changed medications, change in treatment plan, and for s/s of complications, or exacerbation of disease process. Teach medication management Problem:Home Medication Management Goal:Medication management goal Completed Assess Patient ability to manage medications. Assess Patient knowledge of drug allergies, dose/route/frequency, new or changed medications, classification, reason for taking, effectiveness, drug interactions, food interactions, side effects/adverse reactions, contraindications, duplicative therapy, lab tests required, and ability to use pill box and/or medication list. IV Antibiotics infusion-gravity Problem:IV Administration Goal:Infusion education goal Completed Antimicrobial Patch change Problem:IV Care-CVC Goal:Infusion education goal Completed CVC Blood Draw Problem:IV Care-CVC Goal:Infusion education goal Completed CVC Flush Problem:IV Care-CVC Goal:Infusion education goal Completed Change IV Cap Problem:IV Care-CVC Goal:Infusion education goal Completed IV PRN Visits Problem:IV Care-CVC Goal:Infusion education goal Completed PICC Removal Problem:IV Care-PICC Goal:Infusion education goal Completed Instruct on IV complications Problem:Learning/Teach ing Needs - IV Therapy Goal:Infusion safety goal Completed Instruct on IV supplies Problem:Learning/Teach ing Needs - IV Therapy Goal:Infusion safety goal Completed Instruct on the signs and symptoms of infection Problem:Post-op care Goal:Post-op care goal Completed Provide education r/t wound care including the process/pathophysiolo gy of wound healing, the Patient's specific wound dressing treatment, s/sx of infection to watch for and report immediately, self care within the home when applicable, promotion of habits to promote healing including proper nutrition with a focus on protein, increased water intake and intermittent position changing to relieve pressure of the affected area. Wound care Problem:Post-op care Goal:Post-op care goal Completed Pin sites and pins on the right leg wiped down with alcohol, right toes and right plantar wound cleansed with NS and pat dry. Pin sites wiped down with betadine, Cellerate mixed with TAL applied to right great toe, 2nd right toe and right plantar foot, bandaids applied to toes and 4x4 applied to plantar, foot wrapped in 2x2 kerlix and entire area wrapped with ZECHARIAH bandage. Patient tolerated well. Instruct on fall prevention Problem:Risk of Falls Goal:Balance/Fall risk goal Completed Instruct on pain management techniques Problem:Skilled Assessment Goal:Rehospitalization goal Completed IInstruct Patient/Caregiver on pain management including diversion techniques, massage, heat therapy, ice therapy, relaxaton and rest as well as pain medication. Instruct on adherance to pain medication instructions, effectiveness, side effects and possible adverse effects. Ensure Patient/Caregiver can verbalize understanding and develop a specific personal plan on how they intend to manage pain. Medication box Problem:Skilled Assessment Goal:Rehospitalization goal Completed Assessed medications and ensured that the current medication list is accurate. Checked for interactions among medications and reconciled any possible drug interactions. Ensured list of allergies is accurate and up to date. Provided education on all new medications including reason for use, proper dosage and possible side effects. Discused proper days and times for medication distribution and went over storage of medications and method of taking medications on a regular basis. Obtain pulse oximetry Problem:Skilled Assessment Goal:Rehospitalization goal Completed Skilled observation and assessment general assessment Problem:Skilled Assessment Goal:Rehospitalization goal Completed SN to perform general assessment to include height, weight, vital signs, and temperature; General assessment of systems: pulmonary, cardiovascular, neurologic, gastrointestinal, musculoskeletal, renal/urinary, integumentary and psychosocial/psychiat jose/mental and report any abnormalities or concerns to the physician. Interventions Intervention Associated Problem/Goal Status Variance Visit Notes Report abnormal assessment to physician Problem:Abnormal Findings Goal:Assessment findings goal Completed Medication box Problem:Home Medication Management Goal:Medication management goal Completed Assessed medications and ensured that the current medication list is accurate. Checked for interactions among medications and reconciled any possible drug interactions. Ensured list of allergies is accurate and up to date. Provided education on all new medications including reason for use, proper dosage and possible side effects. Discused proper days and times for medication distribution and went over storage of medications and method of taking medications on a regular basis. Skilled assessment medications Problem:Home Medication Management Goal:Medication management goal Completed Skilled observation and assessment of patient's response to new medications, changed medications, change in treatment plan, and for s/s of complications, or exacerbation of disease process. Teach medication management Problem:Home Medication Management Goal:Medication management goal Completed Assess Patient ability to manage medications. Assess Patient knowledge of drug allergies, dose/route/frequency, new or changed medications, classification, reason for taking, effectiveness, drug interactions, food interactions, side effects/adverse reactions, contraindications, duplicative therapy, lab tests required, and ability to use pill box and/or medication list. IV Antibiotics infusion-gravity Problem:IV Administration Goal:Infusion education goal Completed Antimicrobial Patch change Problem:IV Care-CVC Goal:Infusion education goal Completed CVC Blood Draw Problem:IV Care-CVC Goal:Infusion education goal Completed CVC Flush Problem:IV Care-CVC Goal:Infusion education goal Completed Change IV Cap Problem:IV Care-CVC Goal:Infusion education goal Completed IV PRN Visits Problem:IV Care-CVC Goal:Infusion education goal Completed PICC Removal Problem:IV Care-PICC Goal:Infusion education goal Completed Instruct on IV complications Problem:Learning/Teach ing Needs - IV Therapy Goal:Infusion safety goal Completed Instruct on IV supplies Problem:Learning/Teach ing Needs - IV Therapy Goal:Infusion safety goal Completed Instruct on the signs and symptoms of infection Problem:Post-op care Goal:Post-op care goal Completed Educate patient on s/sx of wound infection including increased redness or swelling around wound, increased drainage that may be purulent, foul smell or change in character of drainage, increased pain, no relief with pain medications and/or separation of wound edges. Instruct patient to notify SN and physician if experiencing any of these s/sx Wound care Problem:Post-op care Goal:Post-op care goal Completed All pins cleansed with alcolhol swabs, Kb applied to plantar portion of the right foot and right great toe, wrapped in Kerlix and all covered with ZECHARIAH bandage. Instruct on fall prevention Problem:Risk of Falls Goal:Balance/Fall risk goal Completed Instruct on pain management techniques Problem:Skilled Assessment Goal:Rehospitalization goal Completed Instruct Patient/Caregiver on pain management including diversion techniques, massage, heat therapy, ice therapy, relaxaton and rest as well as pain medication. Instruct on adherance to pain medication instructions, effectiveness, side effects and possible adverse effects. Ensure Patient/Caregiver can verbalize understanding and develop a specific personal plan on how they intend to manage pain. Medication box Problem:Skilled Assessment Goal:Rehospitalization goal Completed Assessed medications and ensured that the current medication list is accurate. Checked for interactions among medications and reconciled any possible drug interactions. Ensured list of allergies is accurate and up to date. Provided education on all new medications including reason for use, proper dosage and possible side effects. Discused proper days and times for medication distribution and went over storage of medications and method of taking medications on a regular basis. Obtain pulse oximetry Problem:Skilled Assessment Goal:Rehospitalization goal Completed Skilled observation and assessment general assessment Problem:Skilled Assessment Goal:Rehospitalization goal Completed SN to perform general assessment to include height, weight, vital signs, and temperature; General assessment of systems: pulmonary, cardiovascular, neurologic, gastrointestinal, musculoskeletal, renal/urinary, integumentary and psychosocial/psychiat jose/mental and report any abnormalities or concerns to the physician. Interventions Intervention Associated Problem/Goal Status Variance Visit Notes Report abnormal assessment to physician Problem:Abnormal Findings Goal:Assessment findings goal Completed Medication box Problem:Home Medication Management Goal:Medication management goal Completed Assessed medications and ensured that the current medication list is accurate. Checked for interactions among medications and reconciled any possible drug interactions. Ensured list of allergies is accurate and up to date. Provided education on all new medications including reason for use, proper dosage and possible side effects. Discused proper days and times for medication distribution and went over storage of medications and method of taking medications on a regular basis. Skilled assessment medications Problem:Home Medication Management Goal:Medication management goal Completed Skilled observation and assessment of patient's response to medication education, safety evaluation, wound care, DM education and CP assess Teach medication management Problem:Home Medication Management Goal:Medication management goal Completed Assess Patient ability to manage medications. Assess Patient knowledge of drug allergies, dose/route/frequen cy, new or changed medications, classification, reason for taking, effectiveness, drug interactions, food interactions, side effects/adverse reactions, contraindications, duplicative therapy, lab tests required, and ability to use pill box and/or medication list. IV Antibiotics infusion-gravity Problem:IV Administration Goal:Infusion education goal Completed Antimicrobial Patch change Problem:IV Care-CVC Goal:Infusion education goal Completed CVC Blood Draw Problem:IV Care-CVC Goal:Infusion education goal Completed CVC Flush Problem:IV Care-CVC Goal:Infusion education goal Completed Change IV Cap Problem:IV Care-CVC Goal:Infusion education goal Completed IV PRN Visits Problem:IV Care-CVC Goal:Infusion education goal Completed PICC Removal Problem:IV Care-PICC Goal:Infusion education goal Completed Instruct on IV complications Problem:Learning/Tea larissa Needs - IV Therapy Goal:Infusion safety goal Completed Instruct on IV supplies Problem:Learning/Tea larissa Needs - IV Therapy Goal:Infusion safety goal Completed Instruct on the signs and symptoms of infection Problem:Post-op care Goal:Post-op care goal Completed Educate patient on s/sx of wound infection including increased redness or swelling around wound, increased drainage that may be purulent, foul smell or change in character of drainage, increased pain, no relief with pain medications and/or separation of wound edges. Instruct patient to notify SN and physician if experiencing any of these s/sx Wound care Problem:Post-op care Goal:Post-op care goal Completed Pins cleansed with alcohol, Kb applied to plantar on right foot and right great toe cover with 4x4, wrap with kerlix and wrap with ZECHARIAH bandage Instruct on fall prevention Problem:Risk of Falls Goal:Balance/Fall risk goal Completed Instruct on pain management techniques Problem:Skilled Assessment Goal:Rehospitalizati on goal Completed Instruct Patient/Caregiver on pain management including diversion techniques, massage, heat therapy, ice therapy, relaxaton and rest as well as pain medication. Instruct on adherance to pain medication instructions, effectiveness, side effects and possible adverse effects. Ensure Patient/Caregiver can verbalize understanding and develop a specific personal plan on how they intend to manage pain. Obtain pulse oximetry Problem:Skilled Assessment Goal:Rehospitalizati on goal Completed Skilled observation and assessment general assessment Problem:Skilled Assessment Goal:Rehospitalizati on goal Completed SN to perform general assessment to include height, weight, vital signs, and temperature; General assessment of systems: pulmonary, cardiovascular, neurologic, gastrointestinal, musculoskeletal, renal/urinary, integumentary and psychosocial/psych iatric/mental and report any abnormalities or concerns to the physician. Medication box Problem:Skilled Assessment Goal:Rehospitalizati on goal Scheduled with variance Task already performed Visit Details Visit Type -MCKOY Routine Vis it Discipline -Occupational Therapy Problems Problem Start Date Status Goals Interventions Abnormal Findings Disciplines: Mcfp, Physical Therapy, Occupational Therapy, Speech Therapy, Home Health Aide, Medical Social Work, Spiritual Care, Art Therapy, Massage Therapy, Registered Dietitian, Student - Medical Social Work 12/19/2019 Active 1 goal linked to scheduled/documented intervention 1 goal intervention scheduled/documented in this visit OT10- ADL Disciplines: Occupational Therapy 12/20/2019 Active 1 goal linked to scheduled/documented intervention 3 goal interventions scheduled/documented in this visit Risk of Falls Disciplines: Mcfp, Physical Therapy, Occupational Therapy, Speech Therapy, Home Health Aide, Medical Social Work, Spiritual Care, Art Therapy, Massage Therapy, Registered Dietitian, Student - Medical Social Work 12/19/2019 Active 1 goal linked to scheduled/documented intervention 1 goal intervention scheduled/documented in this visit Goals Goal Associated Problem Outcome Goal Met? Visit Notes Assessment findings goal Abnormal Findings No Self-Care goal OT10- ADL No Balance/Fall risk goal Risk of Falls No Interventions Intervention Associated Problem/Goal Status Variance Visit Notes Report abnormal assessment to physician Problem:Abnormal Findings Goal:Assessment findings goal Scheduled Instruct patient on Home Exercise Program Problem:OT10- ADL Goal:Self-Care goal Scheduled Instruct patient/caregiver on homemaking and personal care activities Problem:OT10- ADL Goal:Self-Care goal Scheduled Instruct patient/caregiver on use of assistive equipment Problem:OT10- ADL Goal:Self-Care goal Scheduled Instruct on fall prevention Problem:Risk of Falls Goal:Balance/Fall risk goal Scheduled Interventions Intervention Associated Problem/Goal Status Variance Visit Notes Report abnormal assessment to physician Problem:Abnormal Findings Goal:Assessment findings goal Completed Medication box Problem:Home Medication Management Goal:Medication management goal Completed Assessed medications and ensured that the current medication list is accurate. Checked for interactions among medications and reconciled any possible drug interactions. Ensured list of allergies is accurate and up to date. Provided education on all new medications including reason for use, proper dosage and possible side effects. Discused proper days and times for medication distribution and went over storage of medications and method of taking medications on a regular basis. Skilled assessment medications Problem:Home Medication Management Goal:Medication management goal Completed Skilled observation and assessment of patient's response to new medications, changed medications, change in treatment plan, and for s/s of complications, or exacerbation of disease process. Teach medication management Problem:Home Medication Management Goal:Medication management goal Completed Assess Patient ability to manage medications. Assess Patient knowledge of drug allergies, dose/route/frequen cy, new or changed medications, classification, reason for taking, effectiveness, drug interactions, food interactions, side effects/adverse reactions, contraindications, duplicative therapy, lab tests required, and ability to use pill box and/or medication list. IV Antibiotics infusion-gravity Problem:IV Administration Goal:Infusion education goal Completed Antimicrobial Patch change Problem:IV Care-CVC Goal:Infusion education goal Completed CVC Blood Draw Problem:IV Care-CVC Goal:Infusion education goal Completed CVC Flush Problem:IV Care-CVC Goal:Infusion education goal Completed Change IV Cap Problem:IV Care-CVC Goal:Infusion education goal Completed IV PRN Visits Problem:IV Care-CVC Goal:Infusion education goal Completed PICC Removal Problem:IV Care-PICC Goal:Infusion education goal Completed Instruct on IV complications Problem:Learning/Tea larissa Needs - IV Therapy Goal:Infusion safety goal Completed Instruct on IV supplies Problem:Learning/Tea larissa Needs - IV Therapy Goal:Infusion safety goal Completed Instruct on the signs and symptoms of infection Problem:Post-op care Goal:Post-op care goal Completed Instruct Patient and Caregiver in strategies to prevent infection:frequent /proper hand-washing techniques, Standard precautions, avoid crowds and persons with known infections, staying current with immunizations, s/s of infection, use of incentive spirometer, use of antibiotics and encourage adequate diet and fluid intake. Wound care Problem:Post-op care Goal:Post-op care goal Completed Pin sites and pins on the right leg wiped down with alcohol, right toes and right plantar wound cleansed with NS and pat dry. Pin sites wiped down with betadine, Cellerate mixed with TAL applied to right great toe, 2nd right toe and right plantar foot, bandaids applied to toes and 4x4 applied to plantar, foot wrapped in 2x2 kerlix and entire area wrapped with ZECHARIAH bandage. Patient tolerated well. Instruct on fall prevention Problem:Risk of Falls Goal:Balance/Fall risk goal Completed Medication box Problem:Skilled Assessment Goal:Rehospitalizati on goal Completed with variance Task already performed Instruct on pain management techniques Problem:Skilled Assessment Goal:Rehospitalizati on goal Completed Instruct Patient/Caregiver on pain management including diversion techniques, massage, heat therapy, ice therapy, relaxaton and rest as well as pain medication. Instruct on adherance to pain medication instructions, effectiveness, side effects and possible adverse effects. Ensure Patient/Caregiver can verbalize understanding and develop a specific personal plan on how they intend to manage pain. Obtain pulse oximetry Problem:Skilled Assessment Goal:Rehospitalizati on goal Completed Skilled observation and assessment general assessment Problem:Skilled Assessment Goal:Rehospitalizati on goal Completed SN to perform general assessment to include height, weight, vital signs, and temperature; General assessment of systems: pulmonary, cardiovascular, neurologic, gastrointestinal, musculoskeletal, renal/urinary, integumentary and psychosocial/psych iatric/mental and report any abnormalities or concerns to the physician. Visit Details Visit Type -SN OASIS Star t of Care Discipline -Mcfp Problems Problem Start Date Status Goals Interventions Abnormal Findings Disciplines: Mcfp, Physical Therapy, Occupational Therapy, Speech Therapy, Home Health Aide, Medical Social Work, Spiritual Care, Art Therapy, Massage Therapy, Registered Dietitian, Student - Medical Social Work 12/19/2019 Active 1 goal linked to scheduled/documented intervention 1 goal intervention scheduled/documented in this visit Home Medication Management Disciplines: Mcfp 12/19/2019 Active 1 goal linked to scheduled/documented intervention 3 goal interventions scheduled/documented in this visit IV Administration Disciplines: Mcfp 12/19/2019 Active 1 goal linked to scheduled/documented intervention 1 goal intervention scheduled/documented in this visit IV Care-CVC Disciplines: Mcfp 12/19/2019 Active 1 goal linked to scheduled/documented intervention 5 goal interventions scheduled/documented in this visit Learning/Teaching Needs - IV Therapy Disciplines: Mcfp 12/19/2019 Active 1 goal linked to scheduled/documented intervention 2 goal interventions scheduled/documented in this visit Post-op care Disciplines: Mcfp 12/19/2019 Active 1 goal linked to scheduled/documented intervention 2 goal interventions scheduled/documented in this visit Risk of Falls Disciplines: Mcfp, Physical Therapy, Occupational Therapy, Speech Therapy, Home Health Aide, Medical Social Work, Spiritual Care, Art Therapy, Massage Therapy, Registered Dietitian, Student - Medical Social Work 12/19/2019 Active 1 goal linked to scheduled/documented intervention 1 goal intervention scheduled/documented in this visit Skilled Assessment Disciplines: Mcfp 12/19/2019 Active 1 goal linked to scheduled/documented intervention 4 goal interventions scheduled/documented in this visit Interventions Intervention Associated Problem/Goal Status Variance Visit Notes Report abnormal assessment to physician Problem:Abnormal Findings Goal:Assessment findings goal Scheduled Medication box Problem:Home Medication Management Goal:Medication management goal Scheduled Skilled assessment medications Problem:Home Medication Management Goal:Medication management goal Scheduled Teach medication management Problem:Home Medication Management Goal:Medication management goal Scheduled IV Antibiotics infusion-gravity Problem:IV Administration Goal:Infusion education goal Scheduled Antimicrobial Patch change Problem:IV Care-CVC Goal:Infusion education goal Scheduled CVC Blood Draw Problem:IV Care-CVC Goal:Infusion education goal Scheduled CVC Flush Problem:IV Care-CVC Goal:Infusion education goal Scheduled Change IV Cap Problem:IV Care-CVC Goal:Infusion education goal Scheduled IV PRN Visits Problem:IV Care-CVC Goal:Infusion education goal Scheduled Instruct on IV complications Problem:Learning/Teaching Needs - IV Therapy Goal:Infusion safety goal Scheduled Instruct on IV supplies Problem:Learning/Teaching Needs - IV Therapy Goal:Infusion safety goal Scheduled Instruct on the signs and symptoms of infection Problem:Post-op care Goal:Post-op care goal Scheduled Wound care Problem:Post-op care Goal:Post-op care goal Scheduled Instruct on fall prevention Problem:Risk of Falls Goal:Balance/Fall risk goal Scheduled Instruct on pain management techniques Problem:Skilled Assessment Goal:Rehospitalization goal Scheduled Medication box Problem:Skilled Assessment Goal:Rehospitalization goal Scheduled Obtain pulse oximetry (Deleted on 12/19/2019) Problem:Skilled Assessment Goal:Rehospitalization goal Scheduled Skilled observation and assessment general assessment Problem:Skilled Assessment Goal:Rehospitalization goal Scheduled Visit Details Visit Type -OT Initial Evalu ation Discipline -Occupational Therapy Problems Problem Start Date Status Goals Interventions Abnormal Findings Disciplines: Mcfp, Physical Therapy, Occupational Therapy, Speech Therapy, Home Health Aide, Medical Social Work, Spiritual Care, Art Therapy, Massage Therapy, Registered Dietitian, Student - Medical Social Work 12/19/2019 Active 1 goal linked to scheduled/documented intervention 1 goal intervention scheduled/documented in this visit OT10- ADL Disciplines: Occupational Therapy 12/20/2019 Active 1 goal linked to scheduled/documented intervention 3 goal interventions scheduled/documented in this visit Risk of Falls Disciplines: Mcfp, Physical Therapy, Occupational Therapy, Speech Therapy, Home Health Aide, Medical Social Work, Spiritual Care, Art Therapy, Massage Therapy, Registered Dietitian, Student - Medical Social Work 12/19/2019 Active 1 goal linked to scheduled/documented intervention 1 goal intervention scheduled/documented in this visit Goals Goal Associated Problem Outcome Goal Met? Visit Notes Assessment findings goal Abnormal Findings No Self-Care goal OT10- ADL No Balance/Fall risk goal Risk of Falls No Interventions Intervention Associated Problem/Goal Status Variance Visit Notes Report abnormal assessment to physician Problem:Abnormal Findings Goal:Assessment findings goal Scheduled Instruct patient on Home Exercise Program Problem:OT10- ADL Goal:Self-Care goal Scheduled Instruct patient/caregiver on homemaking and personal care activities Problem:OT10- ADL Goal:Self-Care goal Scheduled Instruct patient/caregiver on use of assistive equipment Problem:OT10- ADL Goal:Self-Care goal Scheduled Instruct on fall prevention Problem:Risk of Falls Goal:Balance/Fall risk goal Scheduled Visit Details Visit Type -SN IV Routine-No n-Billable Discipline -Mcfp Problems Problem Start Date Status Goals Interventions Abnormal Findings Disciplines: Mcfp, Physical Therapy, Occupational Therapy, Speech Therapy, Home Health Aide, Medical Social Work, Spiritual Care, Art Therapy, Massage Therapy, Registered Dietitian, Student - Medical Social Work 12/19/2019 Active 1 goal linked to scheduled/documented intervention 1 goal intervention scheduled/documented in this visit Home Medication Management Disciplines: Mcfp 12/19/2019 Active 1 goal linked to scheduled/documented intervention 3 goal interventions scheduled/documented in this visit IV Administration Disciplines: Mcfp 12/19/2019 Active 1 goal linked to scheduled/documented intervention 1 goal intervention scheduled/documented in this visit IV Care-CVC Disciplines: Mcfp 12/19/2019 Active 1 goal linked to scheduled/documented intervention 5 goal interventions scheduled/documented in this visit Learning/Teaching Needs - IV Therapy Disciplines: Mcfp 12/19/2019 Active 1 goal linked to scheduled/documented intervention 2 goal interventions scheduled/documented in this visit Post-op care Disciplines: Mcfp 12/19/2019 Active 1 goal linked to scheduled/documented intervention 2 goal interventions scheduled/documented in this visit Risk of Falls Disciplines: Mcfp, Physical Therapy, Occupational Therapy, Speech Therapy, Home Health Aide, Medical Social Work, Spiritual Care, Art Therapy, Massage Therapy, Registered Dietitian, Student - Medical Social Work 12/19/2019 Active 1 goal linked to scheduled/documented intervention 1 goal intervention scheduled/documented in this visit Skilled Assessment Disciplines: Mcfp 12/19/2019 Active 1 goal linked to scheduled/documented intervention 3 goal interventions scheduled/documented in this visit Interventions Intervention Associated Problem/Goal Status Variance Visit Notes Report abnormal assessment to physician Problem:Abnormal Findings Goal:Assessment findings goal Completed Medication box Problem:Home Medication Management Goal:Medication management goal Completed Assessed medications and ensured that the current medication list is accurate. Checked for interactions among medications and reconciled any possible drug interactions. Ensured list of allergies is accurate and up to date. Provided education on all new medications including reason for use, proper dosage and possible side effects. Discused proper days and times for medication distribution and went over storage of medications and method of taking medications on a regular basis. Skilled assessment medications Problem:Home Medication Management Goal:Medication management goal Completed Skilled observation and assessment of patient's response to new medications, changed medications, change in treatment plan, and for s/s of complications, or exacerbation of disease process. Teach medication management Problem:Home Medication Management Goal:Medication management goal Completed Assess Patient ability to manage medications. Assess Patient knowledge of drug allergies, dose/route/frequen cy, new or changed medications, classification, reason for taking, effectiveness, drug interactions, food interactions, side effects/adverse reactions, contraindications, duplicative therapy, lab tests required, and ability to use pill box and/or medication list. IV Antibiotics infusion-gravity Problem:IV Administration Goal:Infusion education goal Completed Antimicrobial Patch change Problem:IV Care-CVC Goal:Infusion education goal Completed CVC Blood Draw Problem:IV Care-CVC Goal:Infusion education goal Completed CVC Flush Problem:IV Care-CVC Goal:Infusion education goal Completed Change IV Cap Problem:IV Care-CVC Goal:Infusion education goal Completed IV PRN Visits Problem:IV Care-CVC Goal:Infusion education goal Completed Instruct on IV complications Problem:Learning/Tea larissa Needs - IV Therapy Goal:Infusion safety goal Completed Instruct on IV supplies Problem:Learning/Tea larissa Needs - IV Therapy Goal:Infusion safety goal Completed Instruct on the signs and symptoms of infection Problem:Post-op care Goal:Post-op care goal Completed Educate patient on s/sx of wound infection including increased redness or swelling around wound, increased drainage that may be purulent, foul smell or change in character of drainage, increased pain, no relief with pain medications and/or separation of wound edges. Instruct patient to notify SN and physician if experiencing any of these s/sx Wound care Problem:Post-op care Goal:Post-op care goal Completed Dressing in place and non removeable Instruct on fall prevention Problem:Risk of Falls Goal:Balance/Fall risk goal Completed Instruct on pain management techniques Problem:Skilled Assessment Goal:Rehospitalizati on goal Completed Patient denies pain or discomfort. In case of pain, Instruct Patient/Caregiver on pain management including diversion techniques, massage, heat therapy, ice therapy, relaxaton and rest as well as pain medication. Instruct on adherance to pain medication instructions, effectiveness, side effects and possible adverse effects. Ensure Patient/Caregiver can verbalize understanding and develop a specific personal plan on how they intend to manage pain. Skilled observation and assessment general assessment Problem:Skilled Assessment Goal:Rehospitalizati on goal Completed SN to perform general assessment to include height, weight, vital signs, and temperature; General assessment of systems: pulmonary, cardiovascular, neurologic, gastrointestinal, endocrine, musculoskeletal, renal/urinary, integumentary and psychosocial/psych iatric/mental and report any abnormalities or concerns to the physician. Medication box Problem:Skilled Assessment Goal:Rehospitalizati on goal Scheduled with variance Task already performed Visit Details Visit Type -PT Initial Evalu ation Discipline -Physical Therapy Interventions Intervention Associated Problem/Goal Status Variance Visit Notes Assess/Instruct in edema management techniques Problem:AP03- Decreased Knowledge of Edema Control Goal:Edema education goal Completed SKILLED INTERVENTION: Education on importance of LE elevation to reduce swelling. Patient with RLE elevated on leg rest at PT entrance. Report abnormal assessment to physician Problem:Abnormal Findings Goal:Assessment findings goal Completed No abnormal assessment to report to physician this date. Nursing present at PT entry this date. Assess/Instruct in functional positioning to improve/manage abnormal tone Problem:PT13- Abnormal Posture Goal:Posture goal Completed SKILLED INTERVENTION: Education on correct seated positioning and postures. Assess/Instruct in therapeutic exercises and perform manual techniques to improve functional ROM. Problem:PT14- Decreased Strength Goal:Strength goal Completed SKILLED INTERVENTION: LLE strength assessed via MMT grades this session, see eval for specifics. PT establish or upgrade home program Problem:PT16- Decreased knowledge of Home Exercise Program Goal:HEP education goal Completed SKILLED INTERVENTION: Discussed importance of daily HEP compliance to increase BLE strength and endurance level. SCRAP STRIPPER HAND to issue HEP, OKC ex, handout next treatment session and progress program to patient tolerance throughout PT POC. PT transfer training Problem:PT19- Decreased Transfer Ability Goal:Transfer goal Completed SKILLED INTERVENTION: Transfer training completed, see eval for specifics. Assess/Instruct in balance and fall prevention techniques Problem:PT24- Decreased Balance/Increased Fall Risk Goal:Balance/Fall risk goal Completed SKILLED INTERVENTION: Instructed on fall prevention strategies this session. Skilled transfer training completed including education on safety awareness and parameters to decrease fall risk. Instruct on fall prevention Problem:Risk of Falls Goal:Balance/Fall risk goal Completed Instructed on: use of AD, proper lighting/ night light, clear pathways, tubing/ cords of any kind Visit Details Visit Type -NUCLEAR RADIATION ENGINEER HH Routine Discipline -Mcfp Problems Problem Start Date Status Goals Interventions Abnormal Findings Disciplines: Mcfp, Physical Therapy, Occupational Therapy, Speech Therapy, Home Health Aide, Medical Social Work, Spiritual Care, Art Therapy, Massage Therapy, Registered Dietitian, Student - Medical Social Work 12/19/2019 Active 1 goal linked to scheduled/documented intervention 1 goal intervention scheduled/documented in this visit Abnormal Findings Disciplines: Mcfp, Physical Therapy, Occupational Therapy, Speech Therapy, Home Health Aide, Medical Social Work, Spiritual Care, Art Therapy, Massage Therapy, Registered Dietitian, Student - Medical Social Work 01/07/2020 Active 1 goal linked to scheduled/documented intervention 1 goal intervention scheduled/documented in this visit Diabetic Foot Care Disciplines: Mcfp, Physical Therapy, Occupational Therapy, Speech Therapy, Home Health Aide, Medical Social Work, Spiritual Care, Art Therapy, Massage Therapy, Registered Dietitian, Student - Medical Social Work 12/19/2019 Active 1 goal linked to scheduled/documented intervention 1 goal intervention scheduled/documented in this visit Home Medication Management Disciplines: Mcfp 01/07/2020 Active 1 goal linked to scheduled/documented intervention 4 goal interventions scheduled/documented in this visit IV Administration Disciplines: Mcfp 12/19/2019 Active 1 goal linked to scheduled/documented intervention 2 goal interventions scheduled/documented in this visit IV Care-CVC Disciplines: Mcfp 12/19/2019 Active 1 goal linked to scheduled/documented intervention 5 goal interventions scheduled/documented in this visit IV Care-PICC Disciplines: Mcfp 01/07/2020 Active 1 goal linked to scheduled/documented intervention 1 goal intervention scheduled/documented in this visit Learning/Teaching Needs - IV Therapy Disciplines: Mcfp 12/19/2019 Active 1 goal linked to scheduled/documented intervention 3 goal interventions scheduled/documented in this visit Learning/Teaching Needs - IV Therapy Disciplines: Mcfp 01/07/2020 Active 1 goal linked to scheduled/documented intervention 3 goal interventions scheduled/documented in this visit Open Wound Care Disciplines: Mcfp 02/02/2020 Active 1 goal linked to scheduled/documented intervention 1 goal intervention scheduled/documented in this visit Post-op care Disciplines: Mcfp 12/19/2019 Active 1 goal linked to scheduled/documented intervention 2 goal interventions scheduled/documented in this visit Risk of Falls Disciplines: Mcfp, Physical Therapy, Occupational Therapy, Speech Therapy, Home Health Aide, Medical Social Work, Spiritual Care, Art Therapy, Massage Therapy, Registered Dietitian, Student - Medical Social Work 12/19/2019 Active 1 goal linked to scheduled/documented intervention 1 goal intervention scheduled/documented in this visit Skilled Assessment Disciplines: [facility] 01/07/2020 Active 1 goal linked to scheduled/documented intervention 4 goal interventions scheduled/documented in this visit Specimen Collection Disciplines: [facility], Physical Therapy, Occupational Therapy, Speech Therapy, Home Health Aide, Medical Social Work, Spiritual Care, Art Therapy, Massage Therapy, Registered Dietitian, Student - Medical Social Work 12/19/2019 Active 1 goal linked to scheduled/documented intervention 1 goal intervention scheduled/documented in this visit Goals Goal Associated Problem Outcome Goal Met? Visit Notes Assessment findings goal Abnormal Findings No Diabetic foot care goal Diabetic Foot Care No Medication management goal Home Medication Management No Infusion education goal IV Administration No Infusion education goal IV Care-CVC No Infusion education goal IV Care-PICC No Infusion safety goal Learning/Teaching Needs - IV Therapy No Wound care goal Open Wound Care No Post-op care goal Post-op care No Balance/Fall risk goal Risk of Falls No Rehospitalization goal Skilled Assessment No Specimen sample goal Specimen Collection No Interventions Intervention Associated Problem/Goal Status Variance Visit Notes Report abnormal assessment to physician Problem:Abnormal Findings Goal:Assessment findings goal Completed Instruct on diabetic foot care Problem:Diabetic Foot Care Goal:Diabetic foot care goal Completed SN to teach patient/caregiver re: management of diabetes diet, skin care, foot care, administration of insulin and blood glucose monitoring and when to notify HH, physician, or EMS. Medication box Problem:Home Medication Management Goal:Medication management goal Completed Medication list verified Skilled assessment medications Problem:Home Medication Management Goal:Medication management goal Completed Skilled observation and assessment of patient's response to and for s/s of complications, or exacerbation of disease process. Teach medication management Problem:Home Medication Management Goal:Medication management goal Completed Home medication management reviewed with Patient. Patient verbalizes knowledge of disease process, causative factors, complication, and management related to. Instruct on high risk medications Problem:Home Medication Management Goal:Medication management goal Completed Review and identify unnecessary therapeutic duplication; cardiovascular medication problems related to dizziness; continued hyper/hypotension or low pulse; falls, dizziness, or confusion; and inappropriate use of non-steroidal anti-inflammatory drugs (NSAIDs). IV Antibiotics infusion-gravity Problem:IV Administration Goal:Infusion education goal Completed IV infusion adverse reaction documentation Problem:IV Administration Goal:Infusion education goal Completed Antimicrobial Patch change Problem:IV Care-CVC Goal:Infusion education goal Completed CVC Blood Draw Problem:IV Care-CVC Goal:Infusion education goal Completed CVC Flush Problem:IV Care-CVC Goal:Infusion education goal Completed Change IV Cap Problem:IV Care-CVC Goal:Infusion education goal Completed IV PRN Visits Problem:IV Care-CVC Goal:Infusion education goal Completed PICC Removal Problem:IV Care-PICC Goal:Infusion education goal Completed Instruct on IV complications Problem:Learning/Teach ing Needs - IV Therapy Goal:Infusion safety goal Completed Instruct on IV supplies Problem:Learning/Teach ing Needs - IV Therapy Goal:Infusion safety goal Completed Instruct on IV flush Problem:Learning/Teach ing Needs - IV Therapy Goal:Infusion safety goal Completed Wound care Problem:Open Wound Care Goal:Wound care goal Completed No wound care at this visit. Dressing to stay in place until removed by the doctor on the next visit Instruct on the signs and symptoms of infection Problem:Post-op care Goal:Post-op care goal Completed Instruct Patient in strategies to prevent infection:frequent/pr oper hand-washing techniques, Standard precautions, avoid crowds and persons with known infections, staying current with immunizations, s/s of infection, use of incentive spirometer, use of antibiotics and encourage adequate diet and fluid intake. Wound care Problem:Post-op care Goal:Post-op care goal Completed Unable to assess Instruct on fall prevention Problem:Risk of Falls Goal:Balance/Fall risk goal Completed Instruct on pain management techniques Problem:Skilled Assessment Goal:Rehospitalization goal Completed Instruct Patient on medications and alternative strategies to relieve pain. Medication box Problem:Skilled Assessment Goal:Rehospitalization goal Completed Medication list verified Obtain pulse oximetry Problem:Skilled Assessment Goal:Rehospitalization goal Completed Skilled observation and assessment general assessment Problem:Skilled Assessment Goal:Rehospitalization goal Completed SN to perform general assessment to include height, weight, vital signs, and temperature; General assessment of systems: pulmonary, cardiovascular, neurologic, gastrointestinal, endocrine, hematologic, musculoskeletal, renal/urinary and integumentary and report any abnormalities or concerns to the physician. Lab draw Problem:Specimen Collection Goal:Specimen sample goal Completed Visit Details Visit Type -INTEGRATED CIRCUIT FABRICATOR Missed Visit Discipline -Home Health Aide Problems Problem Start Date Status Goals Interventions Abnormal Findings Disciplines: [facility], Physical Therapy, Occupational Therapy, Speech Therapy, Home Health Aide, Medical Social Work, Spiritual Care, Art Therapy, Massage Therapy, Registered Dietitian, Student - Medical Social Work 12/19/2019 Active 1 goal linked to scheduled/documented intervention 1 goal intervention scheduled/documented in this visit INTEGRATED CIRCUIT FABRICATOR-Assist with activity Disciplines: Home Health Aide 12/19/2019 Active 1 goal linked to scheduled/documented intervention 4 goal interventions scheduled/documented in this visit INTEGRATED CIRCUIT FABRICATOR-Assist with elimination Disciplines: Home Health Aide 12/19/2019 Active 1 goal linked to scheduled/documented intervention 3 goal interventions scheduled/documented in this visit INTEGRATED CIRCUIT FABRICATOR-Assist with personal care Disciplines: Home Health Aide 12/19/2019 Active 1 goal linked to scheduled/documented intervention 6 goal interventions scheduled/documented in this visit INTEGRATED CIRCUIT FABRICATOR-Assist with procedures Disciplines: Home Health Aide 12/19/2019 Active 1 goal linked to scheduled/documented intervention 1 goal intervention scheduled/documented in this visit Risk of Falls Disciplines: [facility], Physical Therapy, Occupational Therapy, Speech Therapy, Home Health Aide, Medical Social Work, Spiritual Care, Art Therapy, Massage Therapy, Registered Dietitian, Student - Medical Social Work 12/19/2019 Active 1 goal linked to scheduled/documented intervention 1 goal intervention scheduled/documented in this visit Goals Goal Associated Problem Outcome Goal Met? Visit Notes Assessment findings goal Abnormal Findings No Aide activity goal INTEGRATED CIRCUIT FABRICATOR-Assist with activity No Aide elimination goal INTEGRATED CIRCUIT FABRICATOR-Assist with elimination No Aide personal care goal INTEGRATED CIRCUIT FABRICATOR-Assist with personal care No Aide procedure goal INTEGRATED CIRCUIT FABRICATOR-Assist with procedures No Balance/Fall risk goal Risk of Falls No Interventions Intervention Associated Problem/Goal Status Variance Visit Notes Report abnormal assessment to physician Problem:Abnormal Findings Goal:Assessment findings goal Scheduled Aide assist with ambulation Problem:INTEGRATED CIRCUIT FABRICATOR-Assist with activity Goal:Aide activity goal Scheduled Aide assist with range of motion Problem:INTEGRATED CIRCUIT FABRICATOR-Assist with activity Goal:Aide activity goal Scheduled Aide assist with repositioning Problem:INTEGRATED CIRCUIT FABRICATOR-Assist with activity Goal:Aide activity goal Scheduled Aide transfers Problem:INTEGRATED CIRCUIT FABRICATOR-Assist with activity Goal:Aide activity goal Scheduled Aide assist with bathroom elimination Problem:INTEGRATED CIRCUIT FABRICATOR-Assist with elimination Goal:Aide elimination goal Scheduled Aide assist with commode elimination Problem:INTEGRATED CIRCUIT FABRICATOR-Assist with elimination Goal:Aide elimination goal Scheduled Aide catheter care Problem:INTEGRATED CIRCUIT FABRICATOR-Assist with elimination Goal:Aide elimination goal Scheduled Aide assist with dressing Problem:INTEGRATED CIRCUIT FABRICATOR-Assist with personal care Goal:Aide personal care goal Scheduled Aide assist with foot care Problem:INTEGRATED CIRCUIT FABRICATOR-Assist with personal care Goal:Aide personal care goal Scheduled Aide assist with shampoo Problem:INTEGRATED CIRCUIT FABRICATOR-Assist with personal care Goal:Aide personal care goal Scheduled Aide assist with shower Problem:INTEGRATED CIRCUIT FABRICATOR-Assist with personal care Goal:Aide personal care goal Scheduled Aide inspect skin Problem:INTEGRATED CIRCUIT FABRICATOR-Assist with personal care Goal:Aide personal care goal Scheduled Aide perform hair care Problem:INTEGRATED CIRCUIT FABRICATOR-Assist with personal care Goal:Aide personal care goal Scheduled Aide vitals Problem:INTEGRATED CIRCUIT FABRICATOR-Assist with procedures Goal:Aide procedure goal Scheduled Instruct on fall prevention Problem:Risk of Falls Goal:Balance/Fall risk goal Scheduled Visit Details Visit Type -NUCLEAR RADIATION ENGINEER HH PRN/On-Ca ll Discipline -[facility] Interventions Intervention Associated Problem/Goal Status Variance Visit Notes Report abnormal assessment to physician Problem:Abnormal Findings Goal:Assessment findings goal Scheduled Medication box Problem:Home Medication Management Goal:Medication management goal Scheduled Skilled assessment medications Problem:Home Medication Management Goal:Medication management goal Scheduled Teach medication management Problem:Home Medication Management Goal:Medication management goal Scheduled IV Antibiotics infusion-gravity Problem:IV Administration Goal:Infusion education goal Scheduled Antimicrobial Patch change Problem:IV Care-CVC Goal:Infusion education goal Scheduled CVC Blood Draw Problem:IV Care-CVC Goal:Infusion education goal Scheduled CVC Flush Problem:IV Care-CVC Goal:Infusion education goal Scheduled Change IV Cap Problem:IV Care-CVC Goal:Infusion education goal Scheduled IV PRN Visits Problem:IV Care-CVC Goal:Infusion education goal Scheduled Instruct on IV complications Problem:Learning/Teaching Needs - IV Therapy Goal:Infusion safety goal Scheduled Instruct on IV supplies Problem:Learning/Teaching Needs - IV Therapy Goal:Infusion safety goal Scheduled Instruct on the signs and symptoms of infection Problem:Post-op care Goal:Post-op care goal Scheduled Wound care Problem:Post-op care Goal:Post-op care goal Scheduled Instruct on fall prevention Problem:Risk of Falls Goal:Balance/Fall risk goal Scheduled Instruct on pain management techniques Problem:Skilled Assessment Goal:Rehospitalization goal Scheduled Skilled observation and assessment general assessment Problem:Skilled Assessment Goal:Rehospitalization goal Scheduled Interventions Intervention Associated Problem/Goal Status Variance Visit Notes Report abnormal assessment to physician Problem:Abnormal Findings Goal:Assessment findings goal Completed Medication box Problem:Home Medication Management Goal:Medication management goal Completed Assessed medications and ensured that the current medication list is accurate. Checked for interactions among medications and reconciled any possible drug interactions. Ensured list of allergies is accurate and up to date. Provided education on all new medications including reason for use, proper dosage and possible side effects. Discused proper days and times for medication distribution and went over storage of medications and method of taking medications on a regular basis. Skilled assessment medications Problem:Home Medication Management Goal:Medication management goal Completed Skilled observation and assessment of patient's response to new medications, changed medications, change in treatment plan, and for s/s of complications, or exacerbation of disease process. Teach medication management Problem:Home Medication Management Goal:Medication management goal Completed Assess Patient ability to manage medications. Assess Patient knowledge of drug allergies, dose/route/frequency, new or changed medications, classification, reason for taking, effectiveness, drug interactions, food interactions, side effects/adverse reactions, contraindications, duplicative therapy, lab tests required, and ability to use pill box and/or medication list. IV Antibiotics infusion-gravity Problem:IV Administration Goal:Infusion education goal Completed Antimicrobial Patch change Problem:IV Care-CVC Goal:Infusion education goal Completed CVC Blood Draw Problem:IV Care-CVC Goal:Infusion education goal Completed CVC Flush Problem:IV Care-CVC Goal:Infusion education goal Completed Change IV Cap Problem:IV Care-CVC Goal:Infusion education goal Completed IV PRN Visits Problem:IV Care-CVC Goal:Infusion education goal Completed Instruct on IV complications Problem:Learning/Teach ing Needs - IV Therapy Goal:Infusion safety goal Completed Instruct on IV supplies Problem:Learning/Teach ing Needs - IV Therapy Goal:Infusion safety goal Completed Instruct on the signs and symptoms of infection Problem:Post-op care Goal:Post-op care goal Completed Instruct Patient and Caregiver in strategies to prevent infection:frequent/pr oper hand-washing techniques, Standard precautions, avoid crowds and persons with known infections, staying current with immunizations, s/s of infection, use of incentive spirometer, use of antibiotics and encourage adequate diet and fluid intake. Wound care Problem:Post-op care Goal:Post-op care goal Completed Dressing is non removeable Instruct on fall prevention Problem:Risk of Falls Goal:Balance/Fall risk goal Completed Instruct on pain management techniques Problem:Skilled Assessment Goal:Rehospitalization goal Completed Instruct Patient/Caregiver on pain management including diversion techniques, massage, heat therapy, ice therapy, relaxaton and rest as well as pain medication. Instruct on adherance to pain medication instructions, effectiveness, side effects and possible adverse effects. Ensure Patient/Caregiver can verbalize understanding and develop a specific personal plan on how they intend to manage pain. Skilled observation and assessment general assessment Problem:Skilled Assessment Goal:Rehospitalization goal Completed SN to perform general assessment to include height, weight, vital signs, and temperature; General assessment of systems: pulmonary, cardiovascular, neurologic, gastrointestinal, musculoskeletal, renal/urinary, integumentary and psychosocial/psychiat jose/mental and report any abnormalities or concerns to the physician. Interventions Intervention Associated Problem/Goal Status Variance Visit Notes Assess/Instruct in edema management techniques Problem:AP03- Decreased Knowledge of Edema Control Goal:Edema education goal Scheduled Report abnormal assessment to physician Problem:Abnormal Findings Goal:Assessment findings goal Scheduled Assess/Instruct in functional positioning to improve/manage abnormal tone Problem:PT13- Abnormal Posture Goal:Posture goal Scheduled Patient needed educated with correct posture when standing to improve with transfers and gait to increase with safety. Educated patient with head and shoulder placement to increase with awareness with ADLs Assess/Instruct in therapeutic exercises and perform manual techniques to improve functional ROM. Problem:PT14- Decreased Strength Goal:Strength goal Scheduled Patient performed seated strengthening exercises to L LE to improve with transfer safety in home and increasing with gait safety with less assistance from family. Patient was challenged with hip, quad and ankle strengthening exercise to improve with gait duration and safety with exiting and entering home. Cued patient with importance of posture and progressing with full ROM to improve with benefit of all strengthening exercise with patient showing increase in HR to 106bmp and requiring a rest break PT establish or upgrade home program Problem:PT16- Decreased knowledge of Home Exercise Program Goal:HEP education goal Scheduled Reviewed HEP with patient and educated patient with importance of completing daily to reach LTGs and return to prior level of safety in home. PT transfer training Problem:PT19- Decreased Transfer Ability Goal:Transfer goal Scheduled patient refused Assess/Instruct in balance and fall prevention techniques Problem:PT24- Decreased Balance/Increased Fall Risk Goal:Balance/Fall risk goal Scheduled patient refused Instruct on fall prevention Problem:Risk of Falls Goal:Balance/Fall risk goal Scheduled Interventions Intervention Associated Problem/Goal Status Variance Visit Notes Report abnormal assessment to physician Problem:Abnormal Findings Goal:Assessment findings goal Completed Medication box Problem:Home Medication Management Goal:Medication management goal Completed Assessed medications and ensured that the current medication list is accurate. Checked for interactions among medications and reconciled any possible drug interactions. Ensured list of allergies is accurate and up to date. Provided education on all new medications including reason for use, proper dosage and possible side effects. Discused proper days and times for medication distribution and went over storage of medications and method of taking medications on a regular basis. Skilled assessment medications Problem:Home Medication Management Goal:Medication management goal Completed Skilled observation and assessment of patient's response to new medications, changed medications, change in treatment plan, and for s/s of complications, or exacerbation of disease process. Teach medication management Problem:Home Medication Management Goal:Medication management goal Completed Assess Patient ability to manage medications. Assess Patient knowledge of drug allergies, dose/route/frequency, new or changed medications, classification, reason for taking, effectiveness, drug interactions, food interactions, side effects/adverse reactions, contraindications, duplicative therapy, lab tests required, and ability to use pill box and/or medication list. IV Antibiotics infusion-gravity Problem:IV Administration Goal:Infusion education goal Completed Antimicrobial Patch change Problem:IV Care-CVC Goal:Infusion education goal Completed CVC Blood Draw Problem:IV Care-CVC Goal:Infusion education goal Completed CVC Flush Problem:IV Care-CVC Goal:Infusion education goal Completed Change IV Cap Problem:IV Care-CVC Goal:Infusion education goal Completed IV PRN Visits Problem:IV Care-CVC Goal:Infusion education goal Completed Instruct on IV complications Problem:Learning/Teach ing Needs - IV Therapy Goal:Infusion safety goal Completed Instruct on IV supplies Problem:Learning/Teach ing Needs - IV Therapy Goal:Infusion safety goal Completed Instruct on the signs and symptoms of infection Problem:Post-op care Goal:Post-op care goal Completed Instruct Patient and Caregiver in strategies to prevent infection:frequent/pr oper hand-washing techniques, Standard precautions, avoid crowds and persons with known infections, staying current with immunizations, s/s of infection, use of incentive spirometer, use of antibiotics and encourage adequate diet and fluid intake. Wound care Problem:Post-op care Goal:Post-op care goal Completed Dressing not removed this visit Instruct on fall prevention Problem:Risk of Falls Goal:Balance/Fall risk goal Completed Instruct on pain management techniques Problem:Skilled Assessment Goal:Rehospitalization goal Completed Instruct Patient/Caregiver on pain management including diversion techniques, massage, heat therapy, ice therapy, relaxaton and rest as well as pain medication. Instruct on adherance to pain medication instructions, effectiveness, side effects and possible adverse effects. Ensure Patient/Caregiver can verbalize understanding and develop a specific personal plan on how they intend to manage pain. Skilled observation and assessment general assessment Problem:Skilled Assessment Goal:Rehospitalization goal Completed SN to perform general assessment to include height, weight, vital signs, and temperature; General assessment of systems: pulmonary, cardiovascular, neurologic, gastrointestinal, musculoskeletal, renal/urinary, integumentary and psychosocial/psychiat jose/mental and report any abnormalities or concerns to the physician. Interventions Intervention Associated Problem/Goal Status Variance Visit Notes Report abnormal assessment to physician Problem:Abnormal Findings Goal:Assessment findings goal Completed Medication box Problem:Home Medication Management Goal:Medication management goal Completed Assessed medications and ensured that the current medication list is accurate. Checked for interactions among medications and reconciled any possible drug interactions. Ensured list of allergies is accurate and up to date. Provided education on all new medications including reason for use, proper dosage and possible side effects. Discused proper days and times for medication distribution and went over storage of medications and method of taking medications on a regular basis. Skilled assessment medications Problem:Home Medication Management Goal:Medication management goal Completed Skilled observation and assessment of patient's response to new medications, changed medications, change in treatment plan, and for s/s of complications, or exacerbation of disease process. Teach medication management Problem:Home Medication Management Goal:Medication management goal Completed Assess Patient ability to manage medications. Assess Patient knowledge of drug allergies, dose/route/frequency, new or changed medications, classification, reason for taking, effectiveness, drug interactions, food interactions, side effects/adverse reactions, contraindications, duplicative therapy, lab tests required, and ability to use pill box and/or medication list. IV Antibiotics infusion-gravity Problem:IV Administration Goal:Infusion education goal Completed Antimicrobial Patch change Problem:IV Care-CVC Goal:Infusion education goal Completed CVC Blood Draw Problem:IV Care-CVC Goal:Infusion education goal Completed CVC Flush Problem:IV Care-CVC Goal:Infusion education goal Completed Change IV Cap Problem:IV Care-CVC Goal:Infusion education goal Completed IV PRN Visits Problem:IV Care-CVC Goal:Infusion education goal Completed Instruct on IV complications Problem:Learning/Teach ing Needs - IV Therapy Goal:Infusion safety goal Completed Instruct on IV supplies Problem:Learning/Teach ing Needs - IV Therapy Goal:Infusion safety goal Completed Instruct on the signs and symptoms of infection Problem:Post-op care Goal:Post-op care goal Completed Educate patient on s/sx of wound infection including increased redness or swelling around wound, increased drainage that may be purulent, foul smell or change in character of drainage, increased pain, no relief with pain medications and/or separation of wound edges. Instruct patient to notify SN and physician if experiencing any of these s/sx Wound care Problem:Post-op care Goal:Post-op care goal Completed All wires and pins cleaned with alcohol, kb applied to plantar wound on right foot and right great toe, wrapped with 2x2 dressing and wrapped with [id number] bandage. Patient tolerated well Instruct on fall prevention Problem:Risk of Falls Goal:Balance/Fall risk goal Completed Instruct on pain management techniques Problem:Skilled Assessment Goal:Rehospitalization goal Completed Instruct Patient/Caregiver on pain management including diversion techniques, massage, heat therapy, ice therapy, relaxaton and rest as well as pain medication. Instruct on adherance to pain medication instructions, effectiveness, side effects and possible adverse effects. Ensure Patient/Caregiver can verbalize understanding and develop a specific personal plan on how they intend to manage pain. Skilled observation and assessment general assessment Problem:Skilled Assessment Goal:Rehospitalization goal Completed SN to perform general assessment to include height, weight, vital signs, and temperature; General assessment of systems: pulmonary, cardiovascular, neurologic, gastrointestinal, musculoskeletal, renal/urinary, integumentary and psychosocial/psychiat jose/mental and report any abnormalities or concerns to the physician. Visit Details Visit Type -PT Non-OASIS/Dis cipl Discharge Discipline -Physical Therapy Problems Problem Start Date Status Goals Interventions AP03- Decreased Knowledge of Edema Control Disciplines: Physical Therapy 12/23/2019 Active 1 goal linked to scheduled/documented intervention 1 goal intervention scheduled/documented in this visit Abnormal Findings Disciplines: Mcfp, Physical Therapy, Occupational Therapy, Speech Therapy, Home Health Aide, Medical Social Work, Spiritual Care, Art Therapy, Massage Therapy, Registered Dietitian, Student - Medical Social Work 12/19/2019 Active 1 goal linked to scheduled/documented intervention 1 goal intervention scheduled/documented in this visit PT13- Abnormal Posture Disciplines: Physical Therapy 12/23/2019 Active 1 goal linked to scheduled/documented intervention 1 goal intervention scheduled/documented in this visit PT14- Decreased Strength Disciplines: Physical Therapy 12/23/2019 Active 1 goal linked to scheduled/documented intervention 1 goal intervention scheduled/documented in this visit PT16- Decreased knowledge of Home Exercise Program Disciplines: Physical Therapy 12/23/2019 Active 1 goal linked to scheduled/documented intervention 1 goal intervention scheduled/documented in this visit PT19- Decreased Transfer Ability Disciplines: Physical Therapy 12/23/2019 Active 1 goal linked to scheduled/documented intervention 1 goal intervention scheduled/documented in this visit PT24- Decreased Balance/Increased Fall Risk Disciplines: Physical Therapy 12/23/2019 Active 1 goal linked to scheduled/documented intervention 1 goal intervention scheduled/documented in this visit Risk of Falls Disciplines: Mcfp, Physical Therapy, Occupational Therapy, Speech Therapy, Home Health Aide, Medical Social Work, Spiritual Care, Art Therapy, Massage Therapy, Registered Dietitian, Student - Medical Social Work 12/19/2019 Active 1 goal linked to scheduled/documented intervention 1 goal intervention scheduled/documented in this visit Goals Goal Associated Problem Outcome Goal Met? Visit Notes Edema education goal AP03- Decreased Knowledge of Edema Control Met No Assessment findings goal Abnormal Findings No Posture goal PT13- Abnormal Posture Met No Strength goal PT14- Decreased Strength Met No HEP education goal PT16- Decreased knowledge of Home Exercise Program Met No Transfer goal PT19- Decreased Transfer Ability Met No Balance/Fall risk goal PT24- Decreased Balance/Increased Fall Risk Met No Balance/Fall risk goal Risk of Falls Met No Interventions Intervention Associated Problem/Goal Status Variance Visit Notes Assess/Instruct in edema management techniques Problem:AP03- Decreased Knowledge of Edema Control Goal:Edema education goal Completed Patient to continue keeping RLE elevated throughout the day on w/c leg rest for swelling control. Report abnormal assessment to physician Problem:Abnormal Findings Goal:Assessment findings goal Completed No abnormal assessment to report to physician this date. Assess/Instruct in functional positioning to improve/manage abnormal tone Problem:PT13- Abnormal Posture Goal:Posture goal Completed SKILLED INTERVENTION: Postural exercises completed, see treatment log for specifics. Assess/Instruct in therapeutic exercises and perform manual techniques to improve functional ROM. Problem:PT14- Decreased Strength Goal:Strength goal Completed SKILLED INTERVENTION: LE strength assessed via MMT grades this session, see note for specifics. PT establish or upgrade home program Problem:PT16- Decreased knowledge of Home Exercise Program Goal:HEP education goal Completed SKILLED INTERVENTION: Reviewed HEP with good patient understanding. Patient to continue established program independently at this time. Patient has handouts to reference of ther ex. PT transfer training Problem:PT19- Decreased Transfer Ability Goal:Transfer goal Completed Mod I with transfer to/ from w/c to BSC or bed. Assess/Instruct in balance and fall prevention techniques Problem:PT24- Decreased Balance/Increased Fall Risk Goal:Balance/Fall risk goal Completed Patient with good safety awareness with transfers and also with correct use of adaptive equipment. Places w/c brakes on / off as appropriate for task performing. Instruct on fall prevention Problem:Risk of Falls Goal:Balance/Fall risk goal Completed SKILLED INTERVENTION: Instructed on: use of adaptive equipment/ devices, proper lighting/ night light, proper footwear, clear pathways, tubing/ cords of any kind, avoid transferring when dizzy or weak. Visit Details Visit Type -OT Non-OASIS/Dis cipl Discharge Discipline -Occupational Therapy Problems Problem Start Date Status Goals Interventions Abnormal Findings Disciplines: Mcfp, Physical Therapy, Occupational Therapy, Speech Therapy, Home Health Aide, Medical Social Work, Spiritual Care, Art Therapy, Massage Therapy, Registered Dietitian, Student - Medical Social Work 12/19/2019 Active 1 goal linked to scheduled/documente d intervention 1 goal intervention scheduled/documented in this visit Abnormal Findings Disciplines: Mcfp, Physical Therapy, Occupational Therapy, Speech Therapy, Home Health Aide, Medical Social Work, Spiritual Care, Art Therapy, Massage Therapy, Registered Dietitian, Student - Medical Social Work 01/07/2020 Active 1 goal linked to scheduled/documente d intervention 1 goal intervention scheduled/documented in this visit OT10- ADL Disciplines: Occupational Therapy 12/20/2019 Resolved on 01/08/2020 1 goal linked to scheduled/documente d intervention 3 goal interventions scheduled/documented in this visit Risk of Falls Disciplines: Mcfp, Physical Therapy, Occupational Therapy, Speech Therapy, Home Health Aide, Medical Social Work, Spiritual Care, Art Therapy, Massage Therapy, Registered Dietitian, Student - Medical Social Work 12/19/2019 Active 1 goal linked to scheduled/documente d intervention 1 goal intervention scheduled/documented in this visit Problems Problem Start Date Status Goals Interventions Abnormal Findings Disciplines: Mcfp, Physical Therapy, Occupational Therapy, Speech Therapy, Home Health Aide, Medical Social Work, Spiritual Care, Art Therapy, Massage Therapy, Registered Dietitian, Student - Medical Social Work 12/19/2019 Active 1 goal linked to scheduled/documented intervention 1 goal intervention scheduled/documented in this visit Diabetic Foot Care Disciplines: Mcfp, Physical Therapy, Occupational Therapy, Speech Therapy, Home Health Aide, Medical Social Work, Spiritual Care, Art Therapy, Massage Therapy, Registered Dietitian, Student - Medical Social Work 12/19/2019 Active 1 goal linked to scheduled/documented intervention 1 goal intervention scheduled/documented in this visit Home Medication Management Disciplines: Mcfp 12/19/2019 Active 1 goal linked to scheduled/documented intervention 4 goal interventions scheduled/documented in this visit IV Administration Disciplines: Mcfp 12/19/2019 Active 1 goal linked to scheduled/documented intervention 2 goal interventions scheduled/documented in this visit IV Care-CVC Disciplines: Mcfp 12/19/2019 Active 1 goal linked to scheduled/documented intervention 5 goal interventions scheduled/documented in this visit Learning/Teaching Needs - IV Therapy Disciplines: Mcfp 12/19/2019 Active 1 goal linked to scheduled/documented intervention 3 goal interventions scheduled/documented in this visit Post-op care Disciplines: Mcfp 12/19/2019 Active 1 goal linked to scheduled/documented intervention 2 goal interventions scheduled/documented in this visit Risk of Falls Disciplines: Mcfp, Physical Therapy, Occupational Therapy, Speech Therapy, Home Health Aide, Medical Social Work, Spiritual Care, Art Therapy, Massage Therapy, Registered Dietitian, Student - Medical Social Work 12/19/2019 Active 1 goal linked to scheduled/documented intervention 1 goal intervention scheduled/documented in this visit Skilled Assessment Disciplines: Mcfp 12/19/2019 Active 1 goal linked to scheduled/documented intervention 2 goal interventions scheduled/documented in this visit Specimen Collection Disciplines: Mcfp, Physical Therapy, Occupational Therapy, Speech Therapy, Home Health Aide, Medical Social Work, Spiritual Care, Art Therapy, Massage Therapy, Registered Dietitian, Student - Medical Social Work 12/19/2019 Active 1 goal linked to scheduled/documented intervention 1 goal intervention scheduled/documented in this visit Goals Goal Associated Problem Outcome Goal Met? Visit Notes Assessment findings goal Abnormal Findings No Diabetic foot care goal Diabetic Foot Care No Medication management goal Home Medication Management No Infusion education goal IV Administration No Infusion education goal IV Care-CVC No Infusion safety goal Learning/Teaching Needs - IV Therapy No Post-op care goal Post-op care No Balance/Fall risk goal Risk of Falls No Rehospitalization goal Skilled Assessment No Specimen sample goal Specimen Collection No Interventions Intervention Associated Problem/Goal Status Variance Visit Notes Report abnormal assessment to physician Problem:Abnormal Findings Goal:Assessment findings goal Completed Instruct on diabetic foot care Problem:Diabetic Foot Care Goal:Diabetic foot care goal Completed SN to teach patient/caregiver re: management of diabetes diet, skin care, foot care, administration of insulin and blood glucose monitoring and when to notify HH, physician, or EMS. Medication box Problem:Home Medication Management Goal:Medication management goal Completed Medication list verified Skilled assessment medications Problem:Home Medication Management Goal:Medication management goal Completed Skilled observation and assessment of patient's response to and for s/s of complications, or exacerbation of disease process. Teach medication management Problem:Home Medication Management Goal:Medication management goal Completed Home medication management reviewed with Patient. Patient verbalizes knowledge of disease process, causative factors, complication, and management related to. Instruct on high risk medications Problem:Home Medication Management Goal:Medication management goal Completed Review and identify unnecessary therapeutic duplication; cardiovascular medication problems related to dizziness; continued hyper/hypotension or low pulse; falls, dizziness, or confusion; and inappropriate use of non-steroidal anti-inflammatory drugs (NSAIDs). IV Antibiotics infusion-gravity Problem:IV Administration Goal:Infusion education goal Completed IV infusion adverse reaction documentation Problem:IV Administration Goal:Infusion education goal Completed Antimicrobial Patch change Problem:IV Care-CVC Goal:Infusion education goal Completed CVC Blood Draw Problem:IV Care-CVC Goal:Infusion education goal Completed CVC Flush Problem:IV Care-CVC Goal:Infusion education goal Completed Change IV Cap Problem:IV Care-CVC Goal:Infusion education goal Completed IV PRN Visits Problem:IV Care-CVC Goal:Infusion education goal Completed Instruct on IV complications Problem:Learning/Teach ing Needs - IV Therapy Goal:Infusion safety goal Completed Instruct on IV supplies Problem:Learning/Teach ing Needs - IV Therapy Goal:Infusion safety goal Completed Instruct on IV flush Problem:Learning/Teach ing Needs - IV Therapy Goal:Infusion safety goal Completed Instruct on the signs and symptoms of infection Problem:Post-op care Goal:Post-op care goal Completed Instruct Patient in strategies to prevent infection:frequent/pr oper hand-washing techniques, Standard precautions, avoid crowds and persons with known infections, staying current with immunizations, s/s of infection, use of incentive spirometer, use of antibiotics and encourage adequate diet and fluid intake. Wound care Problem:Post-op care Goal:Post-op care goal Completed Patient goes to see the wound center today for wound care Instruct on fall prevention Problem:Risk of Falls Goal:Balance/Fall risk goal Completed Instruct on pain management techniques Problem:Skilled Assessment Goal:Rehospitalization goal Completed Instruct Patient on medications and alternative strategies to relieve pain. Skilled observation and assessment general assessment Problem:Skilled Assessment Goal:Rehospitalization goal Completed SN to perform general assessment to include height, weight, vital signs, and temperature; General assessment of systems: pulmonary, cardiovascular, neurologic, gastrointestinal, endocrine, hematologic, musculoskeletal, renal/urinary and integumentary and report any abnormalities or concerns to the physician. Lab draw Problem:Specimen Collection Goal:Specimen sample goal Completed Interventions Intervention Associated Problem/Goal Status Variance Visit Notes Report abnormal assessment to physician Problem:Abnormal Findings Goal:Assessment findings goal Completed Medication box Problem:Home Medication Management Goal:Medication management goal Completed Assessed medications and ensured that the current medication list is accurate. Checked for interactions among medications and reconciled any possible drug interactions. Ensured list of allergies is accurate and up to date. Provided education on all new medications including reason for use, proper dosage and possible side effects. Discused proper days and times for medication distribution and went over storage of medications and method of taking medications on a regular basis. Skilled assessment medications Problem:Home Medication Management Goal:Medication management goal Completed Skilled observation and assessment of patient's response to new medications, changed medications, change in treatment plan, and for s/s of complications, or exacerbation of disease process. Teach medication management Problem:Home Medication Management Goal:Medication management goal Completed Assess Patient ability to manage medications. Assess Patient knowledge of drug allergies, dose/route/frequency, new or changed medications, classification, reason for taking, effectiveness, drug interactions, food interactions, side effects/adverse reactions, contraindications, duplicative therapy, lab tests required, and ability to use pill box and/or medication list. Instruct infection prevention Problem:Infection Prevention - Catheter Goal:Catheter infection prevention education goal Completed Instruct Patient and Caregiver in strategies to prevent infection:frequent/pro per hand-washing techniques, Standard precautions, avoid crowds and persons with known infections, staying current with immunizations, s/s of infection, use of incentive spirometer, use of antibiotics and encourage adequate diet and fluid intake. Instruct catheter care Problem:Learning/Teac [place] Needs - Catheter Goal:Urinary catheter education goal Completed Educate Patient/Caregiver on appropriate care of the urinary catheter. Educate the Patient/Caregiver to make sure the tubing of the catheter is not kinked, Ensure that the Patient/Caregiver understands that the catheter bag should never be more than 2/3 full and is to remain below the position of the bladder, Advise the Patient/Caregiver not to lie or sit on the catheter tubing, Encourage and advise prevention of constipation by eating a high fiber diet with an adequate fluid intake, Advise the Patient/Caregiver about the importance of washing the urethral meatus with un-perfumed soap and water during the daily bathing or showering routine and Advise the Patient/Caregiver to contact the SN if pain and discomfort occurs, no urine has drained for 8 or more hours or urine is leaking around the catheter. Instruct on fall prevention Problem:Risk of Falls Goal:Balance/Fall risk goal Completed Instruct on pain management techniques Problem:Skilled Assessment Goal:Rehospitalizatio n goal Completed Instruct Patient/Caregiver on pain management including diversion techniques, massage, heat therapy, ice therapy, relaxaton and rest as well as pain medication. Instruct on adherance to pain medication instructions, effectiveness, side effects and possible adverse effects. Ensure Patient/Caregiver can verbalize understanding and develop a specific personal plan on how they intend to manage pain. Medication box Problem:Skilled Assessment Goal:Rehospitalizatio n goal Completed Assessed medications and ensured that the current medication list is accurate. Checked for interactions among medications and reconciled any possible drug interactions. Ensured list of allergies is accurate and up to date. Provided education on all new medications including reason for use, proper dosage and possible side effects. Discused proper days and times for medication distribution and went over storage of medications and method of taking medications on a regular basis. Obtain pulse oximetry Problem:Skilled Assessment Goal:Rehospitalizatio n goal Completed Skilled observation and assessment general assessment Problem:Skilled Assessment Goal:Rehospitalizatio n goal Completed SN to perform general assessment to include height, weight, vital signs, and temperature; General assessment of systems: pulmonary, cardiovascular, neurologic, gastrointestinal, musculoskeletal, renal/urinary, integumentary and psychosocial/psychiatr ic/mental and report any abnormalities or concerns to the physician. Interventions Intervention Associated Problem/Goal Status Variance Visit Notes Report abnormal assessment to physician Problem:Abnormal Findings Goal:Assessment findings goal Completed Medication box Problem:Home Medication Management Goal:Medication management goal Completed Skilled assessment medications Problem:Home Medication Management Goal:Medication management goal Completed Skilled observation and assessment of patient's response to new medications, changed medications, change in treatment plan, and for s/s of complications, or exacerbation of disease process. Teach medication management Problem:Home Medication Management Goal:Medication management goal Completed Teach medication management Problem:Home Medication Management Goal:Medication management goal Completed Home medication management instructed with Patient. Patient verbalizes knowledge of med management. IV Antibiotics infusion-gravity Problem:IV Administration Goal:Infusion education goal Completed Antimicrobial Patch change Problem:IV Care-CVC Goal:Infusion education goal Completed CVC Blood Draw Problem:IV Care-CVC Goal:Infusion education goal Completed CVC Flush Problem:IV Care-CVC Goal:Infusion education goal Completed Change IV Cap Problem:IV Care-CVC Goal:Infusion education goal Completed IV PRN Visits Problem:IV Care-CVC Goal:Infusion education goal Completed PICC Removal Problem:IV Care-PICC Goal:Infusion education goal Completed Instruct on IV complications Problem:Learning/Teach ing Needs - IV Therapy Goal:Infusion safety goal Completed Instruct on IV supplies Problem:Learning/Teach ing Needs - IV Therapy Goal:Infusion safety goal Completed Instruct on the signs and symptoms of infection Problem:Post-op care Goal:Post-op care goal Completed Instruct { PATIENT CAREGIVER:[id number]} in strategies to prevent infection:{ INFECTION PREVENTION:[id number]::f requent/proper hand-washing techniques,Standard precautions,avoid crowds and persons with known infections,staying current with immunizations,s/s of infection,use of incentive spirometer,use of antibiotics,encoura ge adequate diet and fluid intake}. Wound care Problem:Post-op care Goal:Post-op care goal Completed wound care provided per MD orders without complication Instruct on fall prevention Problem:Risk of Falls Goal:Balance/Fall risk goal Completed Instruct on pain management techniques Problem:Skilled Assessment Goal:Rehospitalization goal Completed Instruct Patient on medications and alternative strategies to relieve pain. Skilled observation and assessment general assessment Problem:Skilled Assessment Goal:Rehospitalization goal Completed SN to perform general assessment to include height, weight, vital signs, and temperature; General assessment of systems: pulmonary, cardiovascular, neurologic, gastrointestinal, endocrine, hematologic, musculoskeletal, renal/urinary, integumentary and psychosocial/psychiat jose/mental and report any abnormalities or concerns to the physician. 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 RADIATION ENGINEER Missed Vi sit Discipline -Mcfp Problems Problem Start Date Status Goals Interventions Abnormal Findings Disciplines: Mcfp, Physical Therapy, Occupational Therapy, Speech Therapy, Home Health Aide, Medical Social Work, Spiritual Care, Art Therapy, Massage Therapy, Registered Dietitian, Student - Medical Social Work 12/19/2019 Active 1 goal linked to scheduled/documented intervention 1 goal intervention scheduled/documented in this visit Abnormal Findings Disciplines: Mcfp, Physical Therapy, Occupational Therapy, Speech Therapy, Home Health Aide, Medical Social Work, Spiritual Care, Art Therapy, Massage Therapy, Registered Dietitian, Student - Medical Social Work 01/07/2020 Active 1 goal linked to scheduled/documented intervention 1 goal intervention scheduled/documented in this visit Home Medication Management Disciplines: Mcfp 12/19/2019 Active 1 goal linked to scheduled/documented intervention 4 goal interventions scheduled/documented in this visit Home Medication Management Disciplines: Mcfp 01/07/2020 Active 1 goal linked to scheduled/documented intervention 4 goal interventions scheduled/documented in this visit IV Administration Disciplines: Mcfp 12/19/2019 Active 1 goal linked to scheduled/documented intervention 1 goal intervention scheduled/documented in this visit IV Care-CVC Disciplines: Mcfp 12/19/2019 Active 1 goal linked to scheduled/documented intervention 5 goal interventions scheduled/documented in this visit IV Care-PICC Disciplines: Mcfp 01/07/2020 Active 1 goal linked to scheduled/documented intervention 1 goal intervention scheduled/documented in this visit Learning/Teaching Needs - IV Therapy Disciplines: Mcfp 12/19/2019 Active 1 goal linked to scheduled/documented intervention 2 goal interventions scheduled/documented in this visit Learning/Teaching Needs - IV Therapy Disciplines: Mcfp 01/07/2020 Active 1 goal linked to scheduled/documented intervention 2 goal interventions scheduled/documented in this visit Post-op care Disciplines: Mcfp 12/19/2019 Active 1 goal linked to scheduled/documented intervention 2 goal interventions scheduled/documented in this visit Risk of Falls Disciplines: Mcfp, Physical Therapy, Occupational Therapy, Speech Therapy, Home Health Aide, Medical Social Work, Spiritual Care, Art Therapy, Massage Therapy, Registered Dietitian, Student - Medical Social Work 12/19/2019 Active 1 goal linked to scheduled/documented intervention 1 goal intervention scheduled/documented in this visit Skilled Assessment Disciplines: Mcfp 12/19/2019 Active 1 goal linked to scheduled/documented intervention 2 goal interventions scheduled/documented in this visit Skilled Assessment Disciplines: Mcfp 01/07/2020 Active 1 goal linked to scheduled/documented intervention 4 goal interventions scheduled/documented in this visit Interventions Intervention Associated Problem/Goal Status Variance Visit Notes Report abnormal assessment to physician Problem:Abnormal Findings Goal:Assessment findings goal Scheduled Instruct on high risk medications Problem:Home Medication Management Goal:Medication management goal Scheduled Medication box Problem:Home Medication Management Goal:Medication management goal Scheduled Skilled assessment medications Problem:Home Medication Management Goal:Medication management goal Scheduled Teach medication management Problem:Home Medication Management Goal:Medication management goal Scheduled IV Antibiotics infusion-gravity Problem:IV Administration Goal:Infusion education goal Scheduled Antimicrobial Patch change Problem:IV Care-CVC Goal:Infusion education goal Scheduled CVC Blood Draw Problem:IV Care-CVC Goal:Infusion education goal Scheduled CVC Flush Problem:IV Care-CVC Goal:Infusion education goal Scheduled Change IV Cap Problem:IV Care-CVC Goal:Infusion education goal Scheduled IV PRN Visits Problem:IV Care-CVC Goal:Infusion education goal Scheduled PICC Removal Problem:IV Care-PICC Goal:Infusion education goal Scheduled Instruct on IV complications Problem:Learning/Teaching Needs - IV Therapy Goal:Infusion safety goal Scheduled Instruct on IV supplies Problem:Learning/Teaching Needs - IV Therapy Goal:Infusion safety goal Scheduled Instruct on the signs and symptoms of infection Problem:Post-op care Goal:Post-op care goal Scheduled Wound care Problem:Post-op care Goal:Post-op care goal Scheduled Instruct on fall prevention Problem:Risk of Falls Goal:Balance/Fall risk goal Scheduled Instruct on pain management techniques Problem:Skilled Assessment Goal:Rehospitalization goal Scheduled Skilled observation and assessment general assessment Problem:Skilled Assessment Goal:Rehospitalization goal Scheduled Medication box Problem:Skilled Assessment Goal:Rehospitalization goal Scheduled Obtain pulse oximetry Problem:Skilled Assessment Goal:Rehospitalization goal Scheduled Problems Problem Start Date Status Goals Interventions Abnormal Findings Disciplines: Mcfp, Physical Therapy, Occupational Therapy, Speech Therapy, Home Health Aide, Medical Social Work, Spiritual Care, Art Therapy, Massage Therapy, Registered Dietitian, Student - Medical Social Work 12/19/2019 Active 1 goal linked to scheduled/documente d intervention 1 goal intervention scheduled/documented in this visit Abnormal Findings Disciplines: Mcfp, Physical Therapy, Occupational Therapy, Speech Therapy, Home Health Aide, Medical Social Work, Spiritual Care, Art Therapy, Massage Therapy, Registered Dietitian, Student - Medical Social Work 01/07/2020 Active 1 goal linked to scheduled/documente d intervention 1 goal intervention scheduled/documented in this visit Home Medication Management Disciplines: Mcfp 12/19/2019 Resolved on 01/15/2020 1 goal linked to scheduled/documente d intervention 3 goal interventions scheduled/documented in this visit Home Medication Management Disciplines: Mcfp 01/07/2020 Active 1 goal linked to scheduled/documente d intervention 3 goal interventions scheduled/documented in this visit IV Administration Disciplines: Mcfp 12/19/2019 Active 1 goal linked to scheduled/documente d intervention 1 goal intervention scheduled/documented in this visit IV Care-CVC Disciplines: Mcfp 12/19/2019 Active 1 goal linked to scheduled/documente d intervention 5 goal interventions scheduled/documented in this visit IV Care-PICC Disciplines: Mcfp 01/07/2020 Active 1 goal linked to scheduled/documente d intervention 1 goal intervention scheduled/documented in this visit Learning/Teaching Needs - IV Therapy Disciplines: Mcfp 12/19/2019 Active 1 goal linked to scheduled/documente d intervention 2 goal interventions scheduled/documented in this visit Learning/Teaching Needs - IV Therapy Disciplines: Mcfp 01/07/2020 Active 1 goal linked to scheduled/documente d intervention 2 goal interventions scheduled/documented in this visit Post-op care Disciplines: Mcfp 12/19/2019 Active 1 goal linked to scheduled/documente d intervention 2 goal interventions scheduled/documented in this visit Risk of Falls Disciplines: Mcfp, Physical Therapy, Occupational Therapy, Speech Therapy, Home Health Aide, Medical Social Work, Spiritual Care, Art Therapy, Massage Therapy, Registered Dietitian, Student - Medical Social Work 12/19/2019 Active 1 goal linked to scheduled/documente d intervention 1 goal intervention scheduled/documented in this visit Skilled Assessment Disciplines: Mcfp 12/19/2019 Resolved on 01/15/2020 1 goal linked to scheduled/documente d intervention 2 goal interventions scheduled/documented in this visit Skilled Assessment Disciplines: Mcfp 01/07/2020 Active 1 goal linked to scheduled/documente d intervention 4 goal interventions scheduled/documented in this visit Interventions Intervention Associated Problem/Goal Status Variance Visit Notes Report abnormal assessment to physician Problem:Abnormal Findings Goal:Assessment findings goal Completed Medication box Problem:Home Medication Management Goal:Medication management goal Completed Assessed medications and ensured that the current medication list is accurate. Checked for interactions among medications and reconciled any possible drug interactions. Ensured list of allergies is accurate and up to date. Provided education on all new medications including reason for use, proper dosage and possible side effects. Discused proper days and times for medication distribution and went over storage of medications and method of taking medications on a regular basis. Skilled assessment medications Problem:Home Medication Management Goal:Medication management goal Completed Skilled observation and assessment of patient's response to new medications, changed medications, change in treatment plan, and for s/s of complications, or exacerbation of disease process. Teach medication management Problem:Home Medication Management Goal:Medication management goal Completed Assess Patient ability to manage medications. Assess Patient knowledge of drug allergies, dose/route/frequency, new or changed medications, classification, reason for taking, effectiveness, drug interactions, food interactions, side effects/adverse reactions, contraindications, duplicative therapy, lab tests required, and ability to use pill box and/or medication list. Medication box Problem:Home Medication Management Goal:Medication management goal Completed { MEDICATION SET UP:299750} to fill medication box every { MON - FRI:570413}. SN to instruct { PATIENT CAREGIVER:385525} and monitor for proper filling and administration. Skilled assessment medications Problem:Home Medication Management Goal:Medication management goal Completed Skilled observation and assessment of patient's response to { SKILLED O&A RESPONSE:185470}. Teach medication management Problem:Home Medication Management Goal:Medication management goal Completed Home medication management { PROGRESS:851862} with { PATIENT CAREGIVER:069212}. { PATIENT CAREGIVER:613120} { VERBALIZE/DEMONSTRATE :650814} { level of GOALS:133739}. IV Antibiotics infusion-gravity Problem:IV Administration Goal:Infusion education goal Completed Antimicrobial Patch change Problem:IV Care-CVC Goal:Infusion education goal Completed CVC Blood Draw Problem:IV Care-CVC Goal:Infusion education goal Completed CVC Flush Problem:IV Care-CVC Goal:Infusion education goal Completed Change IV Cap Problem:IV Care-CVC Goal:Infusion education goal Completed IV PRN Visits Problem:IV Care-CVC Goal:Infusion education goal Completed PICC Removal Problem:IV Care-PICC Goal:Infusion education goal Completed Instruct on IV complications Problem:Learning/Teach ing Needs - IV Therapy Goal:Infusion safety goal Completed Instruct on IV supplies Problem:Learning/Teach ing Needs - IV Therapy Goal:Infusion safety goal Completed Instruct on the signs and symptoms of infection Problem:Post-op care Goal:Post-op care goal Completed Instruct Patient and Caregiver in strategies to prevent infection:frequent/pr oper hand-washing techniques, Standard precautions, avoid crowds and persons with known infections, staying current with immunizations, s/s of infection, use of incentive spirometer, use of antibiotics and encourage adequate diet and fluid intake. Wound care Problem:Post-op care Goal:Post-op care goal Completed Wound care provided to the right leg: cleansed all wires and pins with alcohol,, kb applied, 4x4's, kerlix to plantar wound on right foot, kb applied, 4x4s and kerlix to great right toe and wrapped in an zechariah banage to cover external fixation. Instruct on fall prevention Problem:Risk of Falls Goal:Balance/Fall risk goal Completed Instruct on pain management techniques Problem:Skilled Assessment Goal:Rehospitalization goal Completed Instruct Patient/Caregiver on pain management including diversion techniques, massage, heat therapy, ice therapy, relaxaton and rest as well as pain medication. Instruct on adherance to pain medication instructions, effectiveness, side effects and possible adverse effects. Ensure Patient/Caregiver can verbalize understanding and develop a specific personal plan on how they intend to manage pain. Skilled observation and assessment general assessment Problem:Skilled Assessment Goal:Rehospitalization goal Completed SN to perform general assessment to include height, weight, vital signs, and temperature; General assessment of systems: pulmonary, cardiovascular, neurologic, gastrointestinal, musculoskeletal, renal/urinary, integumentary and psychosocial/psychiat jose/mental and report any abnormalities or concerns to the physician. Instruct on pain management techniques Problem:Skilled Assessment Goal:Rehospitalization goal Completed Instruct { PATIENT CAREGIVER:819445} on medications and alternative strategies to relieve pain. Medication box Problem:Skilled Assessment Goal:Rehospitalization goal Completed { MEDICATION SET UP:429394} to fill medication box every { MON - FRI:153235}. SN to instruct { PATIENT CAREGIVER:182911} and monitor for proper filling and administration. Obtain pulse oximetry Problem:Skilled Assessment Goal:Rehospitalization goal Completed Skilled observation and assessment general assessment Problem:Skilled Assessment Goal:Rehospitalization goal Completed SN to perform general assessment to include height, weight, vital signs, and temperature; General assessment of systems: { GENERAL ASSESSMENT:666650} and report any abnormalities or concerns to the physician. Problems Problem Start Date Status Goals Interventions Abnormal Findings Disciplines: Mcfp, Physical Therapy, Occupational Therapy, Speech Therapy, Home Health Aide, Medical Social Work, Spiritual Care, Art Therapy, Massage Therapy, Registered Dietitian, Student - Medical Social Work 12/19/2019 Active 1 goal linked to scheduled/documented intervention 1 goal intervention scheduled/documented in this visit Abnormal Findings Disciplines: Mcfp, Physical Therapy, Occupational Therapy, Speech Therapy, Home Health Aide, Medical Social Work, Spiritual Care, Art Therapy, Massage Therapy, Registered Dietitian, Student - Medical Social Work 01/07/2020 Active 1 goal linked to scheduled/documented intervention 1 goal intervention scheduled/documented in this visit Diabetic Foot Care Disciplines: Mcfp, Physical Therapy, Occupational Therapy, Speech Therapy, Home Health Aide, Medical Social Work, Spiritual Care, Art Therapy, Massage Therapy, Registered Dietitian, Student - Medical Social Work 12/19/2019 Active 1 goal linked to scheduled/documented intervention 1 goal intervention scheduled/documented in this visit Home Medication Management Disciplines: Mcfp 01/07/2020 Active 1 goal linked to scheduled/documented intervention 4 goal interventions scheduled/documented in this visit Infection Prevention - Catheter Disciplines: Mcfp 02/20/2020 Active 1 goal linked to scheduled/documented intervention 1 goal intervention scheduled/documented in this visit Learning/Teaching Needs - Catheter Disciplines: Mcfp 02/20/2020 Active 1 goal linked to scheduled/documented intervention 1 goal intervention scheduled/documented in this visit Open Wound Care Disciplines: Mcfp 02/02/2020 Active 1 goal linked to scheduled/documented intervention 1 goal intervention scheduled/documented in this visit Risk of Falls Disciplines: Mcfp, Physical Therapy, Occupational Therapy, Speech Therapy, Home Health Aide, Medical Social Work, Spiritual Care, Art Therapy, Massage Therapy, Registered Dietitian, Student - Medical Social Work 12/19/2019 Active 1 goal linked to scheduled/documented intervention 1 goal intervention scheduled/documented in this visit Skilled Assessment Disciplines: Mcfp 01/07/2020 Active 1 goal linked to scheduled/documented intervention 4 goal interventions scheduled/documented in this visit Goals Goal Associated Problem Outcome Goal Met? Visit Notes Assessment findings goal Abnormal Findings No Diabetic foot care goal Diabetic Foot Care No Medication management goal Home Medication Management No Catheter infection prevention education goal Infection Prevention - Catheter No Urinary catheter education goal Learning/Teaching Needs - Catheter No Wound care goal Open Wound Care No Balance/Fall risk goal Risk of Falls No Rehospitalization goal Skilled Assessment No Interventions Intervention Associated Problem/Goal Status Variance Visit Notes Report abnormal assessment to physician Problem:Abnormal Findings Goal:Assessment findings goal Completed Instruct on diabetic foot care Problem:Diabetic Foot Care Goal:Diabetic foot care goal Completed SN to teach patient/caregiver re: management of diabetes diet, skin care, foot care, administration of insulin and blood glucose monitoring and when to notify HH, physician, or EMS. Medication box Problem:Home Medication Management Goal:Medication management goal Completed Medication list verified Skilled assessment medications Problem:Home Medication Management Goal:Medication management goal Completed Skilled observation and assessment of patient's response to and for s/s of complications, or exacerbation of disease process. Teach medication management Problem:Home Medication Management Goal:Medication management goal Completed Home medication management reviewed with Patient. Patient verbalizes knowledge of disease process, causative factors, complication, and management related to. Instruct on high risk medications Problem:Home Medication Management Goal:Medication management goal Completed Review and identify unnecessary therapeutic duplication; cardiovascular medication problems related to dizziness; continued hyper/hypotension or low pulse; falls, dizziness, or confusion; and inappropriate use of non-steroidal anti-inflammatory drugs (NSAIDs). Instruct infection prevention Problem:Infection Prevention - Catheter Goal:Catheter infection prevention education goal Completed Patient instructed on frequent/proper hand-washing techniques, Standard precautions, avoid crowds and persons with known infections, staying current with immunizations, s/s of infection, use of incentive spirometer, use of antibiotics and encourage adequate diet and fluid intake. Patient verbalizes knowledge of disease process, causative factors, complication, and management related to. Instruct catheter care Problem:Learning/Teac [place] Needs - Catheter Goal:Urinary catheter education goal Completed Patient instructed in catheter cares. Patient verbalizes knowledge of disease process, causative factors, complication, and management related to. Wound care Problem:Open Wound Care Goal:Wound care goal Completed SN to perform dressing change to right, calf, ankle, foot and toe surgical . Change dressing every days. Daily visits to end . Old dressing removed. Well tolerated by patient.. Site cleansed with normal saline. Patted dry. Covered with gauze. Secured with paper tape. See Wound Assessment form for measurements and status of wound. Instruct on fall prevention Problem:Risk of Falls Goal:Balance/Fall risk goal Completed Instruct on pain management techniques Problem:Skilled Assessment Goal:Rehospitalizatio n goal Completed Instruct Patient on medications and alternative strategies to relieve pain. Medication box Problem:Skilled Assessment Goal:Rehospitalizatio n goal Completed Medication list verified Obtain pulse oximetry Problem:Skilled Assessment Goal:Rehospitalizatio n goal Completed Skilled observation and assessment general assessment Problem:Skilled Assessment Goal:Rehospitalizatio n goal Completed SN to perform general assessment to include height, weight, vital signs, and temperature; General assessment of systems: pulmonary, cardiovascular, neurologic, gastrointestinal, endocrine, musculoskeletal and renal/urinary and report any abnormalities or concerns to the physician. Interventions Intervention Associated Problem/Goal Status Variance Visit Notes Report abnormal assessment to physician Problem:Abnormal Findings Goal:Assessment findings goal Completed Medication box Problem:Home Medication Management Goal:Medication management goal Completed Assessed medications and ensured that the current medication list is accurate. Checked for interactions among medications and reconciled any possible drug interactions. Ensured list of allergies is accurate and up to date. Provided education on all new medications including reason for use, proper dosage and possible side effects. Discused proper days and times for medication distribution and went over storage of medications and method of taking medications on a regular basis. Skilled assessment medications Problem:Home Medication Management Goal:Medication management goal Completed Skilled observation and assessment of patient's response to new medications, changed medications, change in treatment plan, and for s/s of complications, or exacerbation of disease process. Teach medication management Problem:Home Medication Management Goal:Medication management goal Completed Assess Patient ability to manage medications. Assess Patient knowledge of drug allergies, dose/route/frequency, new or changed medications, classification, reason for taking, effectiveness, drug interactions, food interactions, side effects/adverse reactions, contraindications, duplicative therapy, lab tests required, and ability to use pill box and/or medication list. IV Antibiotics infusion-gravity Problem:IV Administration Goal:Infusion education goal Completed Antimicrobial Patch change Problem:IV Care-CVC Goal:Infusion education goal Completed CVC Blood Draw Problem:IV Care-CVC Goal:Infusion education goal Completed CVC Flush Problem:IV Care-CVC Goal:Infusion education goal Completed Change IV Cap Problem:IV Care-CVC Goal:Infusion education goal Completed IV PRN Visits Problem:IV Care-CVC Goal:Infusion education goal Completed PICC Removal Problem:IV Care-PICC Goal:Infusion education goal Completed Instruct on IV complications Problem:Learning/Teach ing Needs - IV Therapy Goal:Infusion safety goal Completed Instruct on IV supplies Problem:Learning/Teach ing Needs - IV Therapy Goal:Infusion safety goal Completed Instruct on the signs and symptoms of infection Problem:Post-op care Goal:Post-op care goal Completed Educate patient on s/sx of wound infection including increased redness or swelling around wound, increased drainage that may be purulent, foul smell or change in character of drainage, increased pain, no relief with pain medications and/or separation of wound edges. Instruct patient to notify SN and physician if experiencing any of these s/sx Wound care Problem:Post-op care Goal:Post-op care goal Completed Pin sites and pins on the right leg wiped down with alcohol, right toes and right plantar wound cleansed with NS and pat dry. Pin sites wiped down with betadine, Cellerate mixed with TAL applied to right great toe, 2nd right toe and right plantar foot, bandaids applied to toes and 4x4 applied to plantar, foot wrapped in 2x2 kerlix and entire area wrapped with ZECHARIAH bandage. Patient tolerated well. Instruct on fall prevention Problem:Risk of Falls Goal:Balance/Fall risk goal Completed Instruct on pain management techniques Problem:Skilled Assessment Goal:Rehospitalization goal Completed Instruct Patient/Caregiver on pain management including diversion techniques, massage, heat therapy, ice therapy, relaxaton and rest as well as pain medication. Instruct on adherance to pain medication instructions, effectiveness, side effects and possible adverse effects. Ensure Patient/Caregiver can verbalize understanding and develop a specific personal plan on how they intend to manage pain. Medication box Problem:Skilled Assessment Goal:Rehospitalization goal Completed Assessed medications and ensured that the current medication list is accurate. Checked for interactions among medications and reconciled any possible drug interactions. Ensured list of allergies is accurate and up to date. Provided education on all new medications including reason for use, proper dosage and possible side effects. Discused proper days and times for medication distribution and went over storage of medications and method of taking medications on a regular basis. Obtain pulse oximetry Problem:Skilled Assessment Goal:Rehospitalization goal Completed Skilled observation and assessment general assessment Problem:Skilled Assessment Goal:Rehospitalization goal Completed SN to perform general assessment to include height, weight, vital signs, and temperature; General assessment of systems: pulmonary, cardiovascular, neurologic, gastrointestinal, musculoskeletal, renal/urinary, integumentary and psychosocial/psychiat jose/mental and report any abnormalities or concerns to the physician. Alena Mora DPM - 12/01/2019 5:22 PM Boogie Iglesias MD - 11/30/2019 12:01 PM Sinai Hickey MD - 12/06/2019 10:20 PM Lissy Villalta MD - 11/20/2019 10:06 PM EST H&P Notes (unrecognized sect ion and content) INTERVAL HISTORY AND PHYSICAL Patient Name: Dyllan Huertas Admit Date: MR #: [id number] : 1960 The H&P has been reviewed and the patient has been examined. I concur with the findings of the H&P. There are no significant changes. It is appropriate to proceed with the planned procedure. Alena Mora DPM 12/01/2019 5:22 PM [facility] Inpatient H&P 11/30/2019 Boogie Phan MD [facility] Patient: Dyllan Huertas Date of : 1960 (59 y.o.) PCP: Rohit Aguilar MD Assessment Dyllan Huertas 59 y.o. male with history of Principal Problem: Subacute osteomyelitis of right ankle (HCC) Active Problems: Diabetes mellitus with Charcot's joint arthropathy (HCC) Foot ulcer with fat layer exposed, right (HCC) Morbid obesity (HCC) JAYDEN (obstructive sleep apnea) Mixed hyperlipidemia Plan: Admit to hospitalist Cont IV rocephin Consult to ID and podiatry Continue diabetic management with lantus and ISS cpap Holding on DVT ppx till clear about surgical planes 12-01 SUBJECTIVE: Chief Complaint: infected leg wound History of Presenting Illness: Dyllan Huertas is a 59 y.o. male presenting from home with h/o diabetes on disability since 2014 related to a Charcot foot and diabetes developed an ulcer in the beginning of 2018 was being followed by Dr. Robles at the office we have cultures from last year in January with Enterobacter and since then culture with gram-negative bacteria also was seen by Dr. Mora was found to have severe Charcot a corrective surgery was done with placement of an external fixator on 11/20. Today at wound clinic follow up was found to have increased drainage from one of the pin sites, being admitted for continued IV ATB and possible OR/ exploration in am. Review of Systems: 10 systems reviewed and negative other than noted in HPI History: Past Medical History: Diagnosis Date Coronary artery disease Diabetes mellitus, type 2 (HCC) Hyperlipidemia Hypertension Hypothyroidism Peripheral neuropathy Sleep apnea, obstructive does not use CPAP Past Surgical History: Procedure Laterality Date APPENDECTOMY ARTHROPLASTY TOE Right 01/25/2019 Procedure: ARTHROPLASTY 2ND TOE RIGHT FOOT; Surgeon: Rosa M Robles DPM; Location: [facility] – [place]; Service: Podiatry CARDIAC SURGERY 2016 CABG tripe bypass CYST REMOVED FROM CHEST N/A METAL IN LEFT LEFT WRIST AND LEFT 5TH TOE Left ORTHOPEDIC SURGERY RECONSTRUCTION FOOT CHARCOT Right 11/20/2019 Procedure: RIGHT FOOT RECONSTRUCTION WITH APPLICATION OF CIRCULAR STATIC EXTERNAL FIXATION; Surgeon: Alena Mora DPM; Location: [facility]; Service: Podiatry RT FOOT SURGERY Right SHARMILA JEONG N/A Family History Problem Relation Age of Onset Heart disease Mother Heart disease Father Heart disease Brother Social History Tobacco Use Smoking Status Never Smoker Smokeless Tobacco Never Used Social History Substance and Sexual Activity Alcohol Use Yes Comment: occassionally Family and Social History reviewed and non-pertinent to this visit Allergies: Patient has no known allergies. Home Medications: Outpatient Medications as of 11/30/2019 Medication Sig aspirin 81 MG EC tablet Take 2 (two) tablets (162 mg total) by mouth daily Start: 11/25/19. calcium carbonate 400 mg Chew Chew and Swallow 1,000 mg daily . carvediloL (COREG) 6.25 MG tablet Take 2 (two) tablets (12.5 mg total) by mouth every 12 (twelve) hours . docusate sodium (COLACE) 100 MG capsule Take 100 mg by mouth daily . FENOFIBRATE MICRONIZED ORAL Take 160 mg by mouth daily . finasteride (PROSCAR) 5 mg tablet Take 2.5 mg by mouth every night at bedtime Wednesday,WED,WED . gabapentin (NEURONTIN) 300 MG capsule gabapentin GABAPENTIN 300 MG CAPS One tablet by mouth daily GABAPENTIN [id number] Sebastián Dailey MD 06-15-2017 [facility] ([id number]) insulin glargine (LANTUS) 100 unit/mL (3 mL) InPn Inject 50 Units under the skin nightly . levothyroxine (SYNTHROID, LEVOTHROID) 112 MCG tablet once daily . magnesium oxide (MAG-OX) 400 mg (241.3 mg magnesium) tablet Take 400 mg by mouth daily . melatonin 5 mg Tab Take 10 mg by mouth daily . metFORMIN (GLUCOPHAGE-XR) 500 MG 24 hr tablet 1,000 mg 2 (two) times a day . multivitamin (THERAGRAN) per tablet Take 1 tablet by mouth daily . NovoLIN R Regular U-100 Insuln 100 unit/mL injection INJECT 50 UNITS SUBCUTANEOUSLY 3 TIMES DAILY WITH MEALS WITH ADDITIONAL PER SLIDING SCALE ondansetron (ZOFRAN) 4 MG tablet Take 4 mg by mouth every 8 (eight) hours as needed for nausea . rosuvastatin (CRESTOR) 20 MG tablet 20 mg daily . tamsulosin (FLOMAX) 0.4 mg capsule tamsulosin TAMSULOSIN HCL 0.4 MG CAPS One tablet by mouth daily TAMSULOSIN HCL [id number] Sebastián Dailey MD 06-15-2017 [facility] ([id number]) OBJECTIVE: Physical Examination: BP 133/68 Pulse 72 Temp 98.1 F (36.7 C) (Oral) Resp 16 Ht 5' 11 Wt 128 kg (282 lb 3 oz) SpO2 91% BMI 39.36 kg/m General Appearance: Alert, well appearing, and in no acute distress. HEENT: Head - Normocephalic, atraumatic. Eyes - ALEKS bilaterally and EOMI. Ears - normal external appearance, hearing intact. Nose - normal, no erythema. Throat - mucous membranes moist, pharynx without lesions. Neck: Supple, trachea midline. Cardiovascular: S1, S2 normal. No murmurs, rubs, clicks or gallops appreciated. No pedal edema. Respiratory: Lungs clear to auscultation, no wheezes, rales or rhonchi heard. Abdomen: Soft, non-tender, normal bowel sounds, non-distended, no masses or organomegaly appreciated. Neurological: Grossly normal motor and sensory exam. No focal deficits. Musculoskeletal: No joint tenderness, deformity or swelling. Skin: rt foot swelling with one pin site on the lateral aspect which had bleeding and some drainage blood-tinged Psych: Alert, oriented x 3. Normal mood and affect. Laboratory and Additional Data Reviewed: Results/Medications Reviewed 11/30/19 12:02 PM: Results from last 7 days Lab Units 11/29/19 0655 11/24/19 0339 SODIUM mmol/L 142 142 POTASSIUM mmol/L 5.1 4.5 CHLORIDE mmol/L 107 109* BUN mg/dL 36* 49* CREATININE mg/dL 1.12 1.64* GLUCOSE mg/dL 108* 112* CALCIUM mg/dL 9.3 -- Results from last 7 days Lab Units 11/24/19 0339 WBC K/mcL 6.02 HGB g/dL 10.1* HCT % 32.9* PLT K/mcL 161 Invalid input(s): LABALBU CULTURES: Reviewed 12:02 PM IMAGING: Reviewed 12:02 PM documented in this encounter Physical Medicine & Rehabilitation Inpatient H&P 12/07/2019 Sinai Lopez MD [facility] Nursing Rehab Patient: Dyllan Huertas Date of : 1960 (59 y.o.) PCP: Rohit Aguilar MD Date of Admission: 12/06/2019 ASSESSMENT/PLAN: Rehabilitation Diagnosis: Rehab Impairement Code (JOSE): Ortho (12/05/19 07) Ortho IGC: 08.9 - Other Orthopaedic (12/05/19 07) Discharge Barriers: Mobility, ADL, Self Care Impairment: Intensive PT/OT Decreased Endurance: Intensive PT/OT Skin: Turn every 2 hours, monitor for skin breakdown per rehabilitation nursing Nutritional Status: Nutrition Consult Pulmonary Rehabilitation: Encourage incentives spirometry and deep breathing exercises Neurogenic Bladder: Bladder program per rehabilitation nursing, evaluate for urinary retention, prevent urinary incontinence monitor left lower limb charco ankle -obtain Xray Mixed hyperlipidemia Assessment & Plan Statin. 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 * Osteomyelitis (HCC) Assessment & Plan ID following, podiatry following. See rehab plan. Consult medicine, monitor comorbidities. Patient requires frequent management by consulting physicians not available in a lower level of care and frequent lab monitoring. Description of Current Medical Status: Medical/Functional Exam: Please see below Rehabilitation Diagnosis: As above Current & Prior Comorbid Conditions: Please see problem list above Current and Prior Level of Function: Please see below Status Compared to Pre-Admission: There are no clinically significant differences between the patient's current medical and functional status as documented in the preadmission screen. Please see current functional status and hospital course/medical management. Treatment Plan: Disciplines Required: Physical Therapy, Occupational Therapy, Rehabilitation Psychology, Case Management/Social Work and Nursing Specialized in Rehabilitation Intensity of Services: At least 3 hours per day, 5 days a week Functional Goals: mod I with mobility and self care tasks Medical Goals: Medically stable for home discharge Special/Safety Considerations: Fall risk and Bleeding precautions There are no special or safety considerations that would likely preclude immediate implementation of an intensive rehabilitation program (intensity as stated above) or substantially influence plan of care. Risk of Complications: Patient is High Risk For: Falls, Skin breakdown, Dehydration and malnourishment, Atelectasis, Bleeding, Constipation/ileus, Urinary retention with acute kidney injury, Hypotension/hypertension, DVT/PE and joint destruction, amputation Discharge Barriers: Functional deficits and medical stability Patient requires medical monitoring and management of comorbidities and/or hospital complications Patient requires Nursing Specialized in Rehabilitation to Monitor: Bowel and Bladder Care, Frequent Pain or Palliative Assessment and Complex Wound Care Psychosocial Considerations: Safe home discharge plan Attestation: Considering all of the information above, it is my best judgment that this patient requires an intensive rehabilitation multidisciplinary program as previously described due to the necessity of medical management, rehabilitation needs, and complexity of nursing care under the supervision of a rehabilitation physician (patient requires at least 3 rehab physician visits per week). It can be reasonably expected that patient will participate in and benefit from a multidisciplinary team approach to maximize functional independence that is best served with acute inpatient rehabilitation as opposed to lower level of care. The teams needed are: Rehabilitation Nursing for medication management, bowel/bladder care, skin care, and respiratory care Physical Therapy for strengthening, endurance, mobility, gait and balance training, ROM, ADL's, and patient/family training Occupational Therapy for strengthening, endurance, mobility, gait and balance training, ROM, ADL's, and patient/family training Rehabilitation Psychology for coping Therapeutic Recreation for community re-entry Social Work for integrated social support and discharge planning Estimated Length of Stay: 16 days Discharge Destination: Home Rehab Prognosis: Good SUBJECTIVE: Chief Complaint/Reason for Visit: wound dehiscense Informant(s): Patient History of Present Illness: Dyllan Huertas is a 59 y.o. male with a past medical history of DM2 w/ charcot joint arthropathy recent right midfoot wedge resection with application of ex- fix (11/20/19), HLD was admitted on 11/30/2019 with osteomyelitis of right ankle. Hospital course significant for: debridement of right ankle; hyperglycemia. IV abx per ID. Patient reports that his pain is well controlled. He is concerned about wound opening again. He reports that he has numbness/tingling of lower limbs. Patient reports some constipation. 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 He denies any difficulty with schulte placement. Review of Systems: All pertinent positives and negative in HPI/Interval History. All others negative. Allergies: Patient has no known allergies. Home Medications: Prior to Admission medications Medication Sig Start Date End Date Taking? Authorizing Provider aspirin 81 MG EC tablet Take 2 (two) tablets (162 mg total) by mouth daily Start: 11/25/19. 11/25/19 12/25/19 Lissy Palmer MD calcium carbonate 400 mg Chew Chew and Swallow 1,000 mg daily . Historical Provider, carvediloL (COREG) 6.25 MG tablet Take 2 (two) tablets (12.5 mg total) by mouth every 12 (twelve) hours . 11/24/19 12/24/19 Lissy Palmer MD cefTRIAXone (ROCEPHIN) 2 gram/50 mL IVPB Infuse 2,000 mg into a venous catheter daily . Historical Provider, docusate sodium (COLACE) 100 MG capsule Take 100 mg by mouth daily . Historical Provider, FENOFIBRATE MICRONIZED ORAL Take 160 mg by mouth daily . 01/26/15 Historical Provider, finasteride (PROSCAR) 5 mg tablet Take 2.5 mg by mouth every night at bedtime Wednesday,WED,WED . 04/16/15 Historical Provider, gabapentin (NEURONTIN) 300 MG capsule gabapentin GABAPENTIN 300 MG CAPS One tablet by mouth daily GABAPENTIN [id number] Sebastián Dailey MD 06-15-2017 [facility] ([id number]) 06/15/17 Historical Provider, insulin glargine (LANTUS) 100 unit/mL (3 mL) InPn Inject 50 Units under the skin nightly . Historical Provider, levothyroxine (SYNTHROID, LEVOTHROID) 112 MCG tablet once daily . 01/12/19 Historical Provider, magnesium oxide (MAG-OX) 400 mg (241.3 mg magnesium) tablet Take 400 mg by mouth daily . Historical Provider, melatonin 5 mg Tab Take 10 mg by mouth daily . Historical Provider, metFORMIN (GLUCOPHAGE-XR) 500 MG 24 hr tablet 1,000 mg 2 (two) times a day . 10/21/18 Historical Provider, multivitamin (THERAGRAN) per tablet Take 1 tablet by mouth daily . Historical Provider, NovoLIN R Regular U-100 Insuln 100 unit/mL injection INJECT 50 UNITS SUBCUTANEOUSLY 3 TIMES DAILY WITH MEALS WITH ADDITIONAL PER SLIDING SCALE 10/20/19 Historical Provider, ondansetron (ZOFRAN) 4 MG tablet Take 4 mg by mouth every 8 (eight) hours as needed for nausea . Historical Provider, rosuvastatin (CRESTOR) 20 MG tablet 20 mg daily . 09/17/16 Historical Provider, tamsulosin (FLOMAX) 0.4 mg capsule tamsulosin TAMSULOSIN HCL 0.4 MG CAPS One tablet by mouth daily TAMSULOSIN HCL [id number] Sebastián Dailey MD 06-15-2017 [facility] ([id number]) 06/15/17 Historical Provider, Current HOSPITAL Medications: Current Facility-Administered Medications Medication Dose Route Frequency Provider Last Rate Last Dose acetaminophen (TYLENOL) tablet 650 mg 650 mg Oral Q4H PRN Helena Sheldon CNP albuterol (PROVENTIL) 2.5 mg /3 mL (0.083 %) nebulizer solution 2.5 mg 2.5 mg Inhalation Q2H PRN Helena Sheldon CNP aspirin EC tablet 162 mg 162 mg Oral Daily Helena Sheldon CNP 162 mg at 12/07/19 0848 atorvastatin (LIPITOR) tablet 40 mg 40 mg Oral Nightly Helena Sheldon CNP 40 mg at 12/06/19 2142 bisacodyL (DULCOLAX) suppository 10 mg 10 mg Rectal Daily PRN Helena Sheldon CNP calcium carbonate (TUMS) chewable tablet 1,000 mg 1,000 mg Oral Daily Helean Sheldon CNP 1,000 mg at 12/07/19 0848 carvediloL (COREG) tablet 12.5 mg 12.5 mg Oral BID Helena Sheldon CNP 12.5 mg at 12/07/19 0848 cefTRIAXone (ROCEPHIN) IVPB 2 g (premix) 2,000 mg Intravenous Q24H Helena Sheldon CNP docusate sodium (COLACE) capsule 100 mg 100 mg Oral Daily Helena Sheldon CNP 100 mg at 12/07/19 0850 docusate sodium (COLACE) capsule 100 mg 100 mg Oral BID PRN Helena Sheldon CNP fenofibrate tablet 160 mg 160 mg Oral Daily with breakfast Helena Sheldon CNP 160 mg at 12/07/19 0849 gabapentin (NEURONTIN) capsule 300 mg 300 mg Oral Q8H LESLEY Helena Sheldon CNP 300 mg at 12/07/19 0550 insulin glargine (LANTUS) injection 30 Units 30 Units Subcutaneous BID Helena Sheldon CNP 30 Units at 12/07/19 0851 insulin lispro (HumaLOG) injection 0-15 Units 0-15 Units Subcutaneous at bedtime Helena Sheldon CNP 2 Units at 12/06/19 2155 insulin lispro (HumaLOG) injection 0-30 Units 0-30 Units Subcutaneous TID AC Helena Sheldon CNP 8 Units at 12/07/19 0853 levothyroxine (SYNTHROID, LEVOTHROID) tablet 112 mcg 112 mcg Oral Daily Helena Sheldon CNP 112 mcg at 12/07/19 0550 magnesium oxide (MAG-OX) tablet 400 mg 400 mg Oral Daily Helena Sheldon CNP 400 mg at 12/07/19 0856 melatonin Tab 10 mg 10 mg Oral at bedtime Helena Sheldon DE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 10 mg at 12/06/19 214 naloxone (NARCAN) injection 0.1 mg 0.1 mg Intravenous PRN Helena Sheldon CNP And naloxone (NARCAN) injection 0.4 mg 0.4 mg Intravenous PRN Helena Sheldon CNP nitroGLYCERIN (NITROSTAT) SL tablet 0.4 mg 0.4 mg Sublingual Q5 Min PRN Helena Sheldon CNP ondansetron (ZOFRAN-ODT) disintegrating tablet 4 mg 4 mg Oral Q6H PRN Helena Sheldon CNP senna (SENOKOT) tablet 8.6 mg 1 tablet Oral BID PRN Helena Sheldon CNP sodium phosphates (FLEETS ADULT) 19-7 gram/118 mL enema 1 each 1 each Rectal Daily PRN Helena Sheldon CNP tamsulosin (FLOMAX) 24 hr capsule 0.4 mg 0.4 mg Oral After evening meal Helena Sheldon CNP 0.4 mg at 12/06/192140 traZODone (DESYREL) tablet 50 mg 50 mg Oral Nightly PRN Helena Sheldon CNP Past Medical History: Diagnosis Date Coronary artery disease Diabetes mellitus, type 2 (HCC) Hyperlipidemia Hypertension Hypothyroidism Peripheral neuropathy Sleep apnea, obstructive does not use CPAP Past Surgical History: Procedure Laterality Date APPENDECTOMY ARTHROPLASTY TOE Right 01/25/2019 Procedure: ARTHROPLASTY 2ND TOE RIGHT FOOT; Surgeon: Rosa M Robles DPM; Location: [facility]; Service: Podiatry CABG 2017 CARDIAC SURGERY 2017 CABG tripe bypass CLOSED REDUCTION PERCUTANEOUS PINNING LOWER EXTREMITY N/A 12/02/2019 Procedure: ADJUSTMENT of EXTERNAL FIXATOR; Surgeon: Alena Mora DPM; Location: [facility] OR; Service: Podiatry CYST REMOVED FROM CHEST N/A INCISION AND DRAINAGE FOOT AND ANKLE Right 12/02/2019 Procedure: RIGHT FOOT I&D; Surgeon: Alena Mora DPM; Location: [facility]; Service: Podiatry METAL IN LEFT LEFT WRIST AND LEFT 5TH TOE Left ORTHOPEDIC SURGERY RECONSTRUCTION FOOT CHARCOT Right 11/20/2019 Procedure: RIGHT FOOT RECONSTRUCTION WITH APPLICATION OF CIRCULAR STATIC EXTERNAL FIXATION; Surgeon: Alena Mora DPM; Location: [facility] OR; Service: Podiatry RT FOOT SURGERY Right TUMMY TUCK N/A Family History Problem Relation Age of Onset Heart disease Mother Heart disease Father Heart disease Brother Diabetes Sister Social History Socioeconomic History Marital status: Single Spouse name: Not on file Number of children: Not on file Years of education: Not on file Highest education level: Not on file Occupational History Not on file Social Needs Financial resource strain: Not on file Food insecurity Worry: Not on file Inability: Not on file Transportation needs Medical: Not on file Non-medical: Not on file Tobacco Use Smoking status: Never Smoker Smokeless tobacco: Never Used Substance and Sexual Activity Alcohol use: Yes Comment: occassionally mostly beer Drug use: Never Sexual activity: Not Currently Lifestyle Physical activity Days per week: Not on file Minutes per session: Not on file Stress: Not on file Relationships Social connections Talks on phone: Not on file Gets together: Not on file Attends scientologist service: Not on file Active member of club or organization: Not on file Attends meetings of clubs or organizations: Not on file Relationship status: Not on file Other Topics Concern Not on file Social History Narrative Not on file Additional History Comments: None Functional History: (Last Filed Value) Eating: Supine-Sit Pre-Morb: Independent (12/05/19699) Pre-Morb: Independent (12/05/19699) Now: Independent (12/05/19699) Now: Min Assist/Contact Guard (12/05/19699) Goal: Independent (12/05/19699) Goal: Independent (12/05/19699) Grooming/Hygeine: Supine-Stand Pre-Morb: Independent (12/05/19699) Pre-Morb: Independent (12/05/19699) Now: Mod Indeoendent (12/05/19699) Now: Max Assist (12/05/19699) Now: Max Assist (12/05/19699) Goal: Independent (12/05/19699) Upper Extremity Dressing: Transfer: Pre-Morb: Independent (12/05/19699) Pre-Morb: Independent (12/05/19699) Now: Mod Indeoendent (12/05/19699) Now: Max Assist (12/05/19699) Goal: Independent (12/05/19699) Goal: Independent (12/05/19699) Lower Extremity Dressing: Toilet Transfer: Pre-Morb: Independent (12/05/19699) Pre-Morb: Independent (12/05/19699) Now: Max Assist (12/05/19699) Now: Max Assist (12/05/19699) Goal: Independent (12/05/19699) Goal: Independent (12/05/19699) Bladder Management: Ambulation: Pre-Morb: Independent (12/05/19699) Pre-Morb: Independent (12/05/19699) Now: Max Assist (12/05/19699) Now: Max Assist (12/05/19699) Goal: Independent (12/05/19699) Goal: Independent (12/05/19699) Bowel Management: Expression: Pre-Morb: Independent (12/05/19699) Pre-Morb: Independent (12/05/19699) Now: Max Assist (12/05/19699) Now: Independent (12/05/19699) Goal: Independent (12/05/19699) Goal: Independent (12/05/19699) Bed Mobility: Memory: Pre-Morb: Independent (12/05/19699) Pre-Morb: Independent (12/05/19699) Now: Independent (12/05/19699) Now: Independent (12/05/19699) Goal: Independent (12/05/19699) Goal: Independent (12/05/19699) OBJECTIVE: Physical Examination: BP (!) 142/80 Pulse 82 Temp 99.2 F (37.3 C) (Oral) Resp 16 SpO2 93% GENERAL: General Appearance: In no apparent distress, well nourished HEENT: Normocephalic, atraumatic, neck supple, EOMI, PER Respiratory: On room air, no respiratory distress Cardiovascular: Peripheral pulses palpable, 2+ edema b/l Abdomen: Nontender, nondistended Musculoskeletal: left charcot ankle; s/p right ex-fix and debridement with wound closure; decreased PROM of left ankle dorsiflexion and plantar flexion. Skin: ZECHARIAH wraps on lower limbs, right lower limb dressing in tact. Psychiatric: Normal mood and affect, appropriate insight and judgement CRANIAL NERVES: II, III: Pupils: PER III, IV, : Eye Movements: Normal (EOMI, No ptosis, No nystagmus) V - Facial Sensation: Normal VII: Face Symmetry & Strength: Normal VIII Hearing: Normal IX, X Palate:: Normal XI - Shoulder Shrug: Normal XII - Tongue Protrusion: Normal GAIT: Unable to walk due to no assistance to safely evaluate COORDINATION & GROSS MOTOR: Abnormal Movements: None Tone: Normal MOTOR - MUSCLE STRENGTH: Right Muscle Strength Left 5 Shoulder Abduction 5 5 Elbow Flexion 5 5 Elbow Extension 5 5 Wrist Extension 5 5 Finger Abduction 5 5 Hip Flexion 5 5 Knee Extension 5 EDDI Knee Flexion 5 EDDI Dorsiflexion 4 EDDI Plantar Flexion 4 MOTOR MARTINO: 5 Normal Power 4 Movement against moderate resistance over a full range of motion 3 Movement against gravity over almost full range of motion 2 Movement with gravity eliminated over almost full range of motion 1 Trace Movement (flicker of contraction visible or palpable) 0 No Movement (no contraction visible or palpable) EDDI Unable to Assess SENSATION: Light Touch: impaired Position Sense: impaired Lab Results Component Value Date ALBUMIN 2.4 (L) 12/07/2019 ALT 40 12/07/2019 AST 28 12/07/2019 BUN 17 12/07/2019 CALCIUM 9.4 12/07/2019 CL 104 12/07/2019 CHOL 115 11/27/2019 CREATININE 0.86 12/07/2019 GLUCOSE 243 (H) 12/07/2019 HDL 28 (L) 11/27/2019 HCT 36.8 (L) 12/07/2019 HGB 11.3 (L) 12/07/2019 HGBA1C 8.8 (H) 11/27/2019 MG 2.1 11/24/2019 PLT 210 12/07/2019 K 3.9 12/07/2019 NA 138 12/07/2019 TRIG 177 (H) 11/27/2019 WBC 6.95 12/07/[address] Studies: (Last 6 Months) No orders to display Pending Lab and Radiology Results Order Current Status Urine Aerobic Culture on arrival to Nursing Rehab unit In process documented in this encounter INTERVAL HISTORY AND PHYSICAL Patient Name: Dyllan Huertas Admit Date: MR #: [id number] : 1960 The H&P has been reviewed and the patient has been examined. I concur with the findings of the H&P. There are no significant changes. It is appropriate to proceed with the planned procedure. Alena Mora DPM 05/01/2020 12:31 PM History of Present Illness: Patient is a pleasant 59 year old male with history of charcot neuroarthropathy, diabetes with peripheral neuropathy. Patient has undergone stage one of right foot charcot reconstruction in November 2019. Patient has successfully healed and his hemoglobin A1c was reduced from 8.5 to 7.3. At this time, I discussed with him undergoing stage two of his right foot charcot reconstruction involving arthrodesis of the ankle and subtalar joints via intramedullary nail fixation. Patient has been cleared by his primary care physician and scaling machine operator. All laboratory preoperative work up has been completed and reviewed. Past Medical History: Diagnosis Date Coronary artery disease Diabetes mellitus, type 2 (HCC) Hyperlipidemia Hypertension Hypothyroidism Peripheral neuropathy S/P foot surgery, right 12/09/2019 11/20/2019Right foot reconstruction surgery with external fixation 12/02/2019 Right foot I and D Sleep apnea, obstructive does not use CPAP Past Surgical History: Procedure Laterality Date APPENDECTOMY ARTHROPLASTY TOE Right 01/25/2019 Procedure: ARTHROPLASTY 2ND TOE RIGHT FOOT; Surgeon: Rosa M Robles DPM; Location: [facility]; Service: Podiatry CABG 2017 CARDIAC SURGERY 2017 CABG tripe bypass CLOSED REDUCTION PERCUTANEOUS PINNING LOWER EXTREMITY N/A 12/02/2019 Procedure: ADJUSTMENT of EXTERNAL FIXATOR; Surgeon: Alena Mora DPM; [facility]; Service: Podiatry CYST REMOVED FROM CHEST N/A INCISION AND DRAINAGE FOOT AND ANKLE Right 12/02/2019 Procedure: RIGHT FOOT I&D; Surgeon: Alena Mora DPM; Location: [facility]; Service: Podiatry METAL IN LEFT LEFT WRIST AND LEFT 5TH TOE Left ORTHOPEDIC SURGERY RECONSTRUCTION FOOT CHARCOT Right 11/20/2019 Procedure: RIGHT FOOT RECONSTRUCTION WITH APPLICATION OF CIRCULAR STATIC EXTERNAL FIXATION; Surgeon: Alena Mora DPM; Location: [facility] OR; Service: Podiatry RT FOOT SURGERY Right TUMMY TUCK N/A Social History Socioeconomic History Marital status: Single Spouse name: Not on file Number of children: Not on file Years of education: Not on file Highest education level: Not on file Occupational History Not on file Social Needs Financial resource strain: Not on file Food insecurity Worry: Not on file Inability: Not on file Transportation needs Medical: Not on file Non-medical: Not on file Tobacco Use Smoking status: Never Smoker Smokeless tobacco: Never Used Substance and Sexual Activity Alcohol use: Yes Comment: occassionally mostly beer Drug use: Never Sexual activity: Not Currently Lifestyle Physical activity Days per week: Not on file Minutes per session: Not on file Stress: Not on file Relationships Social connections Talks on phone: Not on file Gets together: Not on file Attends scientologist service: Not on file Active member of club or organization: Not on file Attends meetings of clubs or organizations: Not on file Relationship status: Not on file Other Topics Concern Not on file Social History Narrative Not on file Physical Exam: Vascular: DP and PT pulses are palpable 2/4. Cap refill time is brisk to distal digits. Skin temperature is warm to warm from proximal tibial tuberosity to distal digits. +1 pitting edema noted to the right foot. Neuro: Gross sensation is intact. Protective sensation is absent. Dermatologic: The right foot plantar surgical incision site is well healed. All pin sites are healed as expected without any signs of infection. No openings. A small blister is noted to the distal tuft of the right great toe. Minimal redness noted around the blister site. Musculoskeletal: Patient is able to wiggle digits. Compartments are soft and compressible. No calf pain. Assessment: Charcot Neuroarthropathy, right foot Status post Midfoot wedge resection, realignment - Stage one completed and healed. Diabetes with peripheral neuropathy Plan: Patient was seen and evaluated. Discussed all clinical findings. Patient has successfully healed and his hemoglobin A1c was reduced from 8.5 to 7.3. At this time, I discussed with him undergoing stage two of his right foot charcot reconstruction involving arthrodesis of the ankle and subtalar joints via intramedullary nail fixation. Patient has been cleared by his primary care physician and scaling machine operator. All laboratory preoperative work up has been completed and reviewed. All risks and benefits of the surgery were discussed thoroughly with the patient. No guarantees were made. Consent signed. Patient understands that he will need to be admitted following the surgery for 24 hr IV antibiotic course, pain management, PT and OT evaluation. All questions were answered to satisfaction. Surgery is planned for May 01, 2020 Alena Mora DPM, MSBS Podiatric Physician and Surgeon documented in this encounter [facility] Inpatient H&P 11/20/2019 Nancy Cueto, JUDD [facility] Patient: Dyllan Huertas Date of : 1960 (59 y.o.) PCP: Rohit Aguilar MD Assessment Dyllan Lazcanonnett 59 y.o. male with history of obstructive sleep apnea, peripheral neuropathy, hypothyroidism, hypertension, hyperlipidemia, diabetes mellitus type 2, coronary artery disease. Active Problems: Right foot ulcer (HCC) Plan: -Consult podiatry -Continue home medications -Diabetic management -Routine lab work -X-ray ankle, right foot -PT/OT eval and treat -Oxygen per protocol, patient refusing to wear CPAP, states he does not use one at home -Nonweightbearing to right leg -Dressings per podiatry -Ice pack posterior knee -SCD to left leg -Left leg blister culture -Carb controlled diet SUBJECTIVE: Chief Complaint: Right foot wound History of Presenting Illness: Dyllan Huertas is a 59 y.o. male presenting from OR with complaint of right foot wound. Patient was taken to surgery today for a right foot reconstruction with application of circular static external fixation. Patient has a chronic nonhealing ulceration on the plantar aspect of his right foot secondary to Charcot neuropathy osseous prominence. Patient has noted the wound for several months. The ulceration site failed to heal after several serial wound care debridement and management performance. No other pedal complaints. Patient does however have blisters to the left lower extremity which are weeping, mild redness to the left lower extremity. Patient denies any fever, chills, nausea, vomiting, constipation, diarrhea, chest pain, palpitations, shortness of breath, urinary urgency or frequency. Review of Systems: 10 systems reviewed and negative other than noted in HPI History: Past Medical History: Diagnosis Date Coronary artery disease Diabetes mellitus, type 2 (HCC) Hyperlipidemia Hypertension Hypothyroidism Peripheral neuropathy Sleep apnea, obstructive does not use CPAP Past Surgical History: Procedure Laterality Date APPENDECTOMY ARTHROPLASTY TOE Right 01/25/2019 Procedure: ARTHROPLASTY 2ND TOE RIGHT FOOT; Surgeon: Rosa M Robles DPM; Location: [facility] – [place]; Service: Podiatry CARDIAC SURGERY 2016 CABG tripe bypass CYST REMOVED FROM CHEST N/A METAL IN LEFT LEFT WRIST AND LEFT 5TH TOE Left ORTHOPEDIC SURGERY RT FOOT SURGERY Right TUMMY TUCK N/A Family History Problem Relation Age of Onset Heart disease Mother Heart disease Father Heart disease Brother Social History Tobacco Use Smoking Status Never Smoker Smokeless Tobacco Never Used Social History Substance and Sexual Activity Alcohol Use Yes Comment: occassionally Family and Social History reviewed and non-pertinent to this visit. Allergies: Patient has no known allergies. Home Medications: Outpatient Medications as of 11/20/2019 Medication Sig calcium carbonate 400 mg Chew Chew and Swallow 1,000 mg daily . carvedilol (COREG) 6.25 MG tablet 12.5 mg every 12 (twelve) hours . docusate sodium (COLACE) 100 MG capsule Take 100 mg by mouth daily . FENOFIBRATE MICRONIZED ORAL Take 160 mg by mouth daily . gabapentin (NEURONTIN) 300 MG capsule gabapentin GABAPENTIN 300 MG CAPS One tablet by mouth daily GABAPENTIN [id number] Sebastián Dailey MD 06-15-2017 [facility] ([id number]) insulin glargine (LANTUS) 100 unit/mL (3 mL) InPn Inject 50 Units under the skin nightly . levothyroxine (SYNTHROID, LEVOTHROID) 112 MCG tablet once daily . lisinopril (PRINIVIL,ZESTRIL) 20 MG tablet 20 mg 2 (two) times a day . magnesium oxide (MAG-OX) 400 mg (241.3 mg magnesium) tablet Take 400 mg by mouth daily . melatonin 5 mg Tab Take 10 mg by mouth daily . metFORMIN (GLUCOPHAGE-XR) 500 MG 24 hr tablet 1,000 mg 2 (two) times a day . multivitamin (THERAGRAN) per tablet Take 1 tablet by mouth daily . NovoLIN R Regular U-100 Insuln 100 unit/mL injection INJECT 50 UNITS SUBCUTANEOUSLY 3 TIMES DAILY WITH MEALS WITH ADDITIONAL PER SLIDING SCALE omega-3 fatty acids/fish oil (fish oil-omega-3 fatty acids) 300-1,000 mg capsule Take 2 g by mouth daily . rosuvastatin (CRESTOR) 20 MG tablet 20 mg daily . tamsulosin (FLOMAX) 0.4 mg capsule tamsulosin TAMSULOSIN HCL 0.4 MG CAPS One tablet by mouth daily TAMSULOSIN HCL [id number] Sebastián Dailey MD 06-15-2017 [facility] ([id number]) aspirin 81 MG EC tablet Take 162 mg by mouth daily . finasteride (PROSCAR) 5 mg tablet Take 2.5 mg by mouth every night at bedtime Wednesday,WED,WED . OBJECTIVE: Physical Examination: BP 130/79 Pulse 92 Temp 98.1 F (36.7 C) (Oral) Resp 16 Ht 5' 11 Wt 129.4 kg (285 lb 4.4 oz) SpO2 91% BMI 39.79 kg/m General Appearance: Alert, well appearing, and in no acute distress. HEENT: Head - Normocephalic, atraumatic. Eyes - ALEKS bilaterally and EOMI. Ears - normal external appearance, hearing intact. Nose - normal, no erythema. Throat - mucous membranes moist, pharynx without lesions. Neck: Supple, trachea midline. Cardiovascular: S1, S2 normal. No murmurs, rubs, clicks or gallops appreciated. No pedal edema. Respiratory: Lungs clear to auscultation, no wheezes, rales or rhonchi heard. Abdomen: Soft, non-tender, normal bowel sounds, non-distended, no masses or organomegaly appreciated. Obese. Neurological: Grossly normal motor and sensory exam. No focal deficits. Musculoskeletal: No joint tenderness, deformity or swelling. Skin: Normal coloration and turgor. No rashes.Right foot with post surgical dressing c/d/i. Left LE erythema and weeping blisters. Psych: Alert, oriented x 3. Normal mood and affect. Laboratory and Additional Data Reviewed: Results/Medications Reviewed 11/20/19 10:06 PM: Results from last 7 days Lab Units 11/20/19 1035 SODIUM mmol/L 142 POTASSIUM mmol/L 4.4 CHLORIDE mmol/L 108 BUN mg/dL 24 CREATININE mg/dL 1.11 GLUCOSE mg/dL 119* CALCIUM mg/dL 9.6 Results from last 7 days Lab Units 11/20/19 1035 INR 1.0 Invalid input(s): LABALBU CULTURES: Reviewed 10:06 PM IMAGING: Reviewed 10:06 PM INTERVAL HISTORY AND PHYSICAL Patient Name: Dyllan Huertas Admit Date: MR #: [id number] : 1960 The H&P has been reviewed and the patient has been examined. I concur with the findings of the H&P. There are no significant changes. It is appropriate to proceed with the planned procedure. Alena Mora DPM 11/20/2019 11:55 AM History of present illness: Patient is a pleasant 59-year-old male who was seen in my private office for his history and physical evaluation prior to his planned surgery on 11/20/2019. Patient has a chronic nonhealing ulceration on the plantar aspect of his right foot secondary to Charcot neuroarthropathy osseous prominence. This has been ongoing for several months. The ulceration site has failed to heal after several serial wound care debridement and management. No other pedal complaints at this time. Denies fevers, chills, nausea, vomiting, chest pain, shortness of breath, or any other constitutional symptoms. Past Medical History: Diagnosis Date Coronary artery disease Diabetes mellitus, type 2 (HCC) Hyperlipidemia Hypertension Hypothyroidism Peripheral neuropathy Sleep apnea, obstructive does not use CPAP Past Surgical History: Procedure Laterality Date APPENDECTOMY ARTHROPLASTY TOE Right 01/25/2019 Procedure: ARTHROPLASTY 2ND TOE RIGHT FOOT; Surgeon: Rosa M Robles DPM; Location: [facility] – [place]; Service: Podiatry CARDIAC SURGERY 2016 CABG tripe bypass CYST REMOVED FROM CHEST N/A METAL IN LEFT LEFT WRIST AND LEFT 5TH TOE Left ORTHOPEDIC SURGERY RT FOOT SURGERY Right TUMMY TUCK N/A Social History Socioeconomic History Marital status: Single Spouse name: Not on file Number of children: Not on file Years of education: Not on file Highest education level: Not on file Occupational History Not on file Social Needs Financial resource strain: Not on file Food insecurity Worry: Not on file Inability: Not on file Transportation needs Medical: Not on file Non-medical: Not on file Tobacco Use Smoking status: Never Smoker Smokeless tobacco: Never Used Substance and Sexual Activity Alcohol use: Yes Comment: occassionally Drug use: Never Sexual activity: Not on file Lifestyle Physical activity Days per week: Not on file Minutes per session: Not on file Stress: Not on file Relationships Social connections Talks on phone: Not on file Gets together: Not on file Attends scientologist service: Not on file Active member of club or organization: Not on file Attends meetings of clubs or organizations: Not on file Relationship status: Not on file Other Topics Concern Not on file Social History Narrative Not on file Objective: Vascular: Peripheral pulses are palpable at 2 out of 4 for the right dorsalis pedis pulse, 2 out of 4 for the left dorsalis pedis pulse, 2 out of 4 the right posterior tibial pulse, 2 out of 4 for the left posterior tibial pulse. CFT is less than 3 seconds bilaterally. Skin temperature is warm to warm proximal to distal bilaterally. +1 pitting edema noted to bilateral lower extremities Neurological: Gross sensation is intact. Protective sensation is absent bilaterally. Dermatologic: Full-thickness ulceration noted to the plantar midfoot measuring 0.5 x 0.5 x 0.2 cm. The macerated border has resolved. Wound bed is granular. No periwound erythema, edema, drainage or any acute signs of infection. Wound does not probe to bone. No cellulitis or lymphangitis. Musculoskeletal: No pain on palpation to the ulceration site. Equinus deformity noted with a Charcot rocker-bottom foot type. Muscle strength is 4/5 for all muscle groups. Assessment: Full-thickness plantar ulceration, right foot Charcot neuroarthropathy Diabetes type 2 with peripheral neuropathy Plan: Patient was seen and evaluated. Right foot plantar wound is stable. No signs of infection. We have discussed surgical intervention for reconstruction of his Charcot foot deformity on the right lower extremity on multiple clinic visits. Patient has been working closely with his primary care physician to lower his hemoglobin A1c. It has improved and now is 8.5% where previously was greater than 10%. Patient has exhausted all conservative measures in treating his right foot ulceration with multiple serial debridement and offloading devices including cam boot and other devices. I have been treating the patient at the wound care center for several months. His wound has been cultured and was noted to be negative in the past. Patient is ready to undergo surgical correction of his Charcot foot deformity in hopes to heal his ulceration site and obtain a plantigrade foot suitable for ambulation. Patient understands the risks regarding the nature of this procedure. Patient understands that he is at high risk for limb loss. I reviewed the patient's laboratory results, and medical clearances from bothhis primary care physician and from his scaling machine operator. Again, patient is agreeable to proceed with this surgery. He understands the risks and benefits involved. No guarantees were made. Plan for surgery on 11/20/2019. Alena Mora DPM, MS Podiatric Physician and Surgeon documented in this encounter INTERVAL HISTORY AND PHYSICAL Patient Name: Dyllan Huertas Admit Date: [id number] MR #: [id number] : 1960 The H&P has been reviewed and the patient has been examined. I concur with the findings of the H&P. There are no significant changes. It is appropriate to proceed with the planned procedure. Rosa M Robles DPM 01/25/2019 8:34 AM documented in this encounter Actions Home Health Visit - Actions and Narratives (unrecognized section and content) OT eval complete, recommende d removal of bathroom door for attempt to get into bathroom for showering. OT to provide adaptions/ modfiicaitons to maximize safety and IND while NWB and awaiting additional surgery Narratives 59 yo male 12/05-12/18 with IP rehab stay for osteomyelitis of R Ankle/ External fixator, NWB AND W/C bound since April due to non healing ulcer while inside home. Reports will have ORIF x 3 months and then reconstruction at that point. Pmhx:h/o CABG x 3, 2 years ago had surgery R foot/ Charcot foot B with braces, hammer toe surgery last summer with surgical shoe, unable to wear brace that caused pressure ulcer, self cathed at night PLOF: Using a w/c since April to keep RLE NWB, walked when out to appts/ store and used scooter at store/ cart, (+) driving, IND ADL , IND IADL, (-) working since 2014 due to Charcot foot / surgeries on foot, one floor living Brother in law and sister live next door, help prn and drive places/ appts, etc. OWNS:W/c, slide board, tub transfer bench, bedside commode over commode, ramp, walker, inspection supervisor, PRECUATIONS:NWB RLE, IV R arm, LEILANI PREFERS:usually up by 900 APPTS:12/20 800 am wound clinic FALLS:no h/o falls GOALS:Be able to shower Narratives Patient goes by Quique. Patient is a 59 y/o male recently admitted from 12/06/2019 to 12/19/2019 with IP rehab stay for osteomyelitis of R Ankle/ External fixator. Patient also had surgery 11/20/2019; received therapy services following at [facility]. Patient is NWB RLE and w/c bound since April 2019 due to non healing ulcer. PMH: h/o CABG x 3, 2 years ago had surgery R foot/ Charcot foot B with braces, hammer toe surgery last summer with surgical shoe, unable to wear brace that caused pressure ulcer, self cathed at night Falls in last 6 months: No PLOF (Prior to April 2019) Had R foot surgery x 2 years ago; walking boot for 2 years, I didn't do alot of walking; Ambulation without AD short distances, power chair at grocery store, (+) driving, independent with ADLs; patient has been using w/c since April 2019 to maintain NWB RLE status, does not work (since 2014 from Charcot foot / surgeries) Patient lives alone in single level home + basement; Primary bedroom/ bathoom and laundry on main, first level. Patient's sister lives next door and is able to stop by each morning to assist as needed. Equipment: w/c, slide board, tub transfer bench, bedside commode over commode, ramp, walker, inspection supervisor Precautions: NWB RLE, IV R arm, SCHULTE Preferred appt time: doesn't matter Physician follow up appt: 12/28/2019 at 8:00am (every ) Patient's goal: get stronger Patient agrees to PT Frequency at 1w1, 2w1, 1w1. Treatment may consist of any combination of the following: Ther ex for LE strengthening, NMR: sitting balance, Transfer training, HEP and patient education. Skilled PT services are required to increase LE strength and endurance for improved transfers and independence with ADLs with NWB RLE status Patient states that after 3 months with external fixation another surgery will be warranted for reconstruction (third surgery). Unable to perform standardized tests secondary to activity limitations and NWB RLE status. Actions Medication review, education provided on diet, diabetes, wound healing, strengthening, swelling, elevation, s/sx of infection, pain mangement, and safety. Patient stated that the doctor was going to call him today or tomorrow on getting into the office to have the fixator removed, they did not want care completed d/t removing the fixator.At this visit the patient has not heard for them yet on a day and time but this nurse gave him my number to call as soon as he finds out anything so we know what is going on, he was okay with the same.CMupdated on the same. Narratives HOMEBOUND STATUS Criteria 1: Assistive Device(s): w/c Needs assistance of at least 1 to leave home Criteria 2: Patient confined to home due to bedbound/wheelchair bound Type of Home: 1-story house/ trailer Actions PRN visit- Pt reports UBD wa s leaking. Pt has attempted to tape same and then put in ziplock bag. UDB changed this visit. Actions OT RA for DC, max potential achieved until change in WB status changes. IN D with use of adpataiotns/ modificaitons. Actions Medication review, basic ass esment, education provided diet, diabetes, strengthening, daily activity, pain mangment, elevation, swelling, s/sx of infection to the wound, cath care, s/sx of UTI, hydration, and safety. Patient goes to see the wound doctor today at 1pm for a routine visit. Patient finished IV ATB on wednesday night and he began ATB oral Doxy. on 01/02 and he is to take 100mg BID for [address] Felecia agudelo 01/16 to see about cath. Patient goes to the wound clinic on Fridays now.PICC may be reomved at the wound center today, patient wasnt sure. CM update on the same Narratives HOMEBOUND STATUS Criteria 1: Assistive Device(s): wheelchair Needs assistance of at least 1 to leave home Criteria 2: Patient confined to home due to weight bearing restrictions related to surgery, bedbound/wheelchair bound and other homebound reason is a difficult and taxing effort to leave the home Type of Home: 1-story house/ trailer Actions call frompatient stating fol ey is leaking, no urine in bag. no supplies in home. home visit made, apprear bag is leaking, bag change, unclamped tubing, no leaking after change Actions Medication review, basic ass essment, education provided on diet, diabetes, strengthening, swelling, elevation, hydration, s/sx of UTI, cath care, s/sx of infection to to the right foot wound areas, pain mangement, daily activity, and safety issues. Wound care completed, no s/sx of infection to the old pin sites, no drainage to the wound sites to the mini area, scant drainage to the bottom of the foot. Patient goes to the wound center on Wednesday for a follow up. CM updated on the same. Najma Spear RN - 01/25/2019 10:18 AM Alexia Mclain RN - 01/25/2019 8:29 AM Leah Bridges RN - 01/25/2019 7:46 AM Leah Bridges RN - 01/25/2019 7:41 AM EDT Nursing Notes (unrecognized section and content) All personal belongings returned. Denies any post op pain or nausea. Sigifredo hose applied to non operative leg/foot Took a long acting insulin 50 units(does not know name) at 0800. Brother in law Jr. Driving patient home. documented in this encounter Care Teams (unrecognized sec tion and content) Pumping Station Supervisor Relationship Specialty Start Date End Date Rohit Aguilar MD [address] [place] [address] PCP - General Family Medicine 01/18/19 Maria Isabel Awad MD [address] [facility] [address] [place] [address] Consulting Physician Infectious Diseases 12/19/19 Alena Mora DPM [address] [place] [address] Podiatry 12/19/19 [employer]umping Station Supervisor Relationship Specialty Start Date End Date Rohit Aguilar MD [address] [place] [address] PCP - General Family Medicine 01/18/19 Maria Isabel Awad MD [address] [facility] [address] [place] [address] Consulting Physician Infectious Diseases 12/19/19 Alena Mora DPM [address] [place] [address] Podiatry 12/19/19 [employer]umping Station Supervisor Relationship Specialty Start Date End Date Rohit Aguilar MD [address] [place] [address] PCP - General Family Medicine 01/18/19 Maria Isabel Awad MD [address] [place] [address] Consulting Physician Infectious Diseases 12/19/19 Alena Mora DPM [address] [place] [address] Podiatry 12/19/19 Pumping Station Supervisor Relationship Specialty Start Date End Date Rohit Aguilar MD [address] [place] [address] PCP - General Family Medicine 01/18/19 Maria Isabel Awad MD [address] [place] [address] Consulting Physician Infectious Diseases 12/19/19 Alena Mora, DPColeen [address] [place] [address] Podiatry 12/19/19 Pumping Station Supervisor Relationship Specialty Start Date End Date Rohit Aguilar MD [address] [place] [address] PCP - General Family Medicine 01/18/19 Maria Isabel Awad MD [address] [place] [address] Consulting Physician Infectious Diseases 12/19/19 Alena Mora, DPM [address] [place] [address] Podiatry 12/19/19 Pumping Station Supervisor Relationship Specialty Start Date End Date Rohit Aguilar MD [address] [place] [address] PCP - General Family Medicine 01/18/19 Maria Isabel Awad MD [address] [place] [address] Consulting Physician Infectious Diseases 12/19/19 Alena Mora DPM [address] [place] [address] Podiatry 12/19/19 Pumping Station Supervisor Relationship Specialty Start Date End Date Rohit Aguilar MD [address] [place] [address] PCP - General Family Medicine 01/18/19 Maria Isabel Awad MD [address] [place] [address] Consulting Physician Infectious Diseases 12/19/19 Alena Mora DPM [address] [place] [address] Podiatry 12/19/19 Pumping Station Supervisor Relationship Specialty Start Date End Date Rohit Aguialr MD [address] [place] [address] PCP - General Family Medicine 01/18/19 Maria Isabel Awad MD [address] [place] [address] Consulting Physician Infectious Diseases 12/19/19 Alena Mora DPM [address] [place] [address] Podiatry 12/19/19 Pumping Station Supervisor Relationship Specialty Start Date End Date Rohit Aguilar MD [address] [place] [address] PCP - General 01/03/20 Pumping Station Supervisor Relationship Specialty Start Date End Date Rohit Aguilar MD [address] [place] [address] PCP - General 01/03/20 Pumping Station Supervisor Relationship Specialty Start Date End Date Rohit Aguilar MD [address] [place], [facility] PCP - General Family Medicine 01/18/19 Maria Isabel Awad MD [address] [place] [address] Consulting Physician Infectious Diseases 12/19/19 Alena Mora DPM [address] [place] [address] Podiatry 12/19/19 Pumping Station Supervisor Relationship Specialty Start Date End Date Jace Reeder DO [address] [facility] [place] [address] PCP - General Internal Medicine 01/19/24 Pumping Station Supervisor Relationship Specialty Start Date End Date Rohit Aguilar MD [address] [place] [address] PCP - General Family Medicine 01/18/19 Maria Isabel Awad MD [address] [place] [address] Consulting Physician Infectious Diseases 12/19/19 Alena Mora DPM [address] [place] [address] Podiatry 12/19/19 Pumping Station Supervisor Relationship Specialty Start Date End Date Jace Reeder DO [address] [place] [address] PCP - General Internal Medicine 05/28/24 Maria Isabel Awad MD [address] [place] [address] Consulting Physician Infectious Diseases 12/19/19 Alena Mora DPM [address] [place] [address] Podiatry 12/19/19 Pumping Station Supervisor Relationship Specialty Start Date End Date Jace Reeder DO [address] [place] [address] PCP - General Internal Medicine 05/28/24 Maria Isabel Awad MD [address] [place] [address] Consulting Physician Infectious Diseases 12/19/19 Alena Mora DPM [address] [place] [address] Podiatry 12/19/19 Pumping Station Supervisor Relationship Specialty Start Date End Date Jace Reeder DO [address] [place] [address] PCP - General Internal Medicine 05/28/24 Maria Isabel Awad MD [address] [place] [address] Consulting Physician Infectious Diseases 12/19/19 Alena Mora DPM [address] [place] [address] Podiatry 12/19/19 Pumping Station Supervisor Relationship Specialty Start Date End Date Jace Reeder DO [address] [facility] [place] [address] PCP - General Internal Medicine 01/19/24 Jace Reeder DO [address] [facility] [place] [address] PCP - [employer] Medicare Advantage PCP 04/03/24 Sera Álvarez, jet manAccounting Manager Assistant Controller 07/03/24 Pumping Station Supervisor Relationship Specialty Start Date End Date Jace Reeder DO [address] [place] [address] PCP - General Internal Medicine 05/28/24 Maria Isabel Awad MD [address] [place] [address] Consulting Physician Infectious Diseases 12/19/19 Alena Mora DPM [address] [place] [address] Podiatry 12/19/19 Pumping Station Supervisor Relationship Specialty Start Date End Date Jace Reeder DO [address] [facility] [place] [address] PCP - General Internal Medicine 01/19/24 Jace Reeder DO [address] [facility] [place] [address] PCP - [employer] Medicare Advantage PCP 04/03/24 Sera Álvarez, jet manAccounting Manager Assistant Controller 07/03/24 Pumping Station Supervisor Relationship Specialty Start Date End Date Jace Reeder DO [address] [place] [address] PCP - General Internal Medicine 05/28/24 Maria Isabel Awad MD [address] [place] [address] Consulting Physician Infectious Diseases 12/19/19 Alena Mora DPM [address] [place] [address] Podiatry 12/19/19 Pumping Station Supervisor Relationship Specialty Start Date End Date Jace Reeder DO [address] [place] [address] PCP - General Internal Medicine 05/28/24 Maria Isabel Awad MD [address] [place] [address] Consulting Physician Infectious Diseases 12/19/19 Alena Mora DPM [address] [place] [address] Podiatry 12/19/19 Pumping Station Supervisor Relationship Specialty Start Date End Date Jace Reeder DO [address] [place] [address] PCP - General Internal Medicine 05/28/24 Maria Isabel Awad MD [address] [place] [address] Consulting Physician Infectious Diseases 12/19/19 Alena Mora DPM [address] [place] [address] Podiatry 12/19/19 Pumping Station Supervisor Relationship Specialty Start Date End Date Jace Reeder DO [address] [place] [address] PCP - General Internal Medicine 05/28/24 Maria Isabel Awad MD [address] [place] [address] Consulting Physician Infectious Diseases 12/19/19 Alena Mora DPM [address] [place] [address] Podiatry 12/19/19 Pumping Station Supervisor Relationship Specialty Start Date End Date Jace Reeder DO [address] [place] [address] PCP - General Internal Medicine 05/28/24 Maria Isabel Awad MD [address] [place] [address] Consulting Physician Infectious Diseases 12/19/19 Alena Mora DPM [address] [place] [address] Podiatry 12/19/19 Pumping Station Supervisor Relationship Specialty Start Date End Date Jace Reeder DO [address] [place] [address] PCP - General Internal Medicine 05/28/24 Maria Isabel Awad MD [address] [facility] [address] [place] [address] Consulting Physician Infectious Diseases 12/19/19 Alena Mora DPM [address] [place] [address] Podiatry 12/19/19 Pumping Station Supervisor Relationship Specialty Start Date End Date Jace Reeder DO [address] [place] [address] PCP - General Internal Medicine 05/28/24 Maria Isabel Awad MD [address] [facility] [address] [place] [address] Consulting Physician Infectious Diseases 12/19/19 Alena Mora DPM [address] [place] [address] Podiatry 12/19/19 Pumping Station Supervisor Relationship Specialty Start Date End Date Jace Reeder DO [address] [facility] [place] [address] PCP - General Internal Medicine 01/19/24 Pumping Station Supervisor Relationship Specialty Start Date End Date Jace Reeder DO [address] [facility] [place] [address] PCP - General Internal Medicine 01/19/24 Jace Reeder DO [address] [facility] [place] [address] PCP - [employer] Medicare Advantage PCP 04/03/24 Pumping Station Supervisor Relationship Specialty Start Date End Date Jace Reeder DO [address] [place] [address] PCP - General Internal Medicine 05/28/24 Maria Isabel Awad MD [address] [place] [address] Consulting Physician Infectious Diseases 12/19/19 Alena Mora DPM [address] [place] [address] Podiatry 12/19/19 Pumping Station Supervisor Relationship Specialty Start Date End Date Jace Reeder DO [address] [place] [address] PCP - General Internal Medicine 05/28/24 Maria Isabel Awad MD [address] [place] [address] Consulting Physician Infectious Diseases 12/19/19 Alena Mora DPM [address] [place] [address] Podiatry 12/19/19 Pumping Station Supervisor Relationship Specialty Start Date End Date DaytonJace peralta DO [address] [facility] [place] [address] PCP - [employer] Medicare Advantage PCP 04/03/24 Bhakti Chambers PA-C [address] [place] [address] PCP - General Internal Medicine 01/11/25 Pumping Station Supervisor Relationship Specialty Start Date End Date Bhakti Chambers PA-C [address] [place] [place] [address] PCP - General Physician Boat Ride Operator 01/08/25 Maria Isabel Awad MD [address] [address] Consulting Physician Infectious Diseases 12/19/19 Alena Mora DPM [address] [place] [address] Podiatry 12/19/19 Pumping Station Supervisor Relationship Specialty Start Date End Date Bhakti Chambers PA-C [address] [address] PCP - General Physician Boat Ride Operator 01/08/25 Maria Isabel Awad MD [facility] [address] [place] [address] Consulting Physician Infectious Diseases 12/19/19 Alena Mora DPM [address] [place] [address] Podiatry 12/19/19 Pumping Station Supervisor Relationship Specialty Start Date End Date Jace Reeder DO [address] [place] [address] PCP - [employer] Medicare Advantage PCP 04/03/24 Bhakti Chambers PA-C [address] [place] [address] PCP - General Internal Medicine 01/11/25 Pumping Station Supervisor Relationship Specialty Start Date End Date Bhakti Chambers PA-C [address] [place] [address] PCP - General Physician Boat Ride Operator 01/08/25 Maria Isabel Awad MD [address] [place] [address] [address] [place] [address] Consulting Physician Infectious Diseases 12/19/19 Alena Mora DPM [address] [place] [address] Podiatry 12/19/19 Pumping Station Supervisor Relationship Specialty Start Date End Date Jace Reeder DO [address] [place] [address] PCP - [employer] Medicare Advantage PCP 04/03/24 Bhakti Chambers PA-C [address] [place] [address] PCP - General Internal Medicine 01/11/25 Team Status: Active Member Role Status Dates Dr. Rohit Aguilar MD Family Provider Active MARIELA Robbins Primary Care Provider Active Team Status: Inactive Member Role Status Dates Dr. Jace Reeder DO Referring Provider Active Start: March 19, 2025 End: March 19, 2025 Dean Peng MEDICAL SURGICAL TECH, MEDICAL SURGICAL TECH-C Attending Provider Active S tart: March 19, 2025 End: March 19, 2025 MARIELA Robbins Primary Care Provider Active Start: March 19, 2025 End: March 19, 2025 Pumping Station Supervisor Relationship Specialty Start Date End Date Bhakti Chambers PA-C [address] [place] [address] PCP - General Physician Boat Ride Operator 01/08/25 Maria Isabel Awad MD [address] [facility] [address] [place] [address] Consulting Physician Infectious Diseases 12/19/19 Alena Mora DPM [address] [place] [address] Podiatry 12/19/19 Pumping Station Supervisor Relationship Specialty Start Date End Date Bhakti Chambers PA-C [address] [place] [address] PCP - General Physician Boat Ride Operator 01/08/25 Maria Isabel Awad MD [address] [facility] [address] [place] [address] Consulting Physician Infectious Diseases 12/19/19 Alena Mora DPM [address] [place] [address] Podiatry 12/19/19 Pumping Station Supervisor Relationship Specialty Start Date End Date Bhakti Chambers PA-C [address] [facility] [address] PCP - General Physician Boat Ride Operator 01/08/25 Maria Isabel Awad MD [address] [facility] [address] [place] [address] Consulting Physician Infectious Diseases 12/19/19 Alena Mora DPM [address] [place] [address] Podiatry 12/19/19 Pumping Station Supervisor Relationship Specialty Start Date End Date Jace Reeder DO [address] [place] [address] PCP - [employer] Medicare Advantage PCP 04/03/24 Bhakti Chambers PA-C [address] [facility] [address] PCP - General Internal Medicine 01/11/25 Goals (unrecognized section and content) Goals may be documented in a n alternate sectionGoals may be documented in an alternate section FOR RECORDS PERTAINING TO PATIENTS WHO ARE OR HAVE BEEN ENROLLED IN A CHEMICAL DEPENDENCY/SUBSTANCEABUSE PROGRAM, SOME INFORMATION MAY BE OMITTED. This clinical summary was aggregated from multiple sources. Caution should be exercised in using it in the provision of clinical care. This summary normalizes information from multiple sources, and as a consequence, information in this document may materially change the coding, format and clinical context of patient data. In addition, data may be omitted in some cases. CLINICAL DECISIONS SHOULD BE BASED ON THE PRIMARY CLINICAL RECORDS. [facility]. provides no warranty or guarantee of the accuracy or completeness of information in this document.
--- NOTE | 2025-05-11 07:20 | STRESSREP ---
Stress Test Report Pharmacologic myocardial perfusion stress test. This 64-year-old man with a history of chest pain Resting EKG demonstrates sinus rhythm with a rate of 74 and PVCs. Resting blood pressure is 160/78 mmHg. 0.4 mg of regadenoson was infused per usual protocol followed by rapid intravenous saline flush injection. Continuous EKG monitoring was performed. The maximum heart rate was 88 bpm which was 55%of max impacted heart rate the maximum workload was 1 metabolic equivalent. At rest there were no ST or T wave changes noted to suggest ischemia and at peak infusion nonspecific ST changes were noted which did not meet the criteria for ischemia. No clinical angina is noted. The final blood pressure was 160/78mmHg. Myocardial perfusion protocol. 15 mCi of technetium 99m sestamibi was injected at rest. 0.4 mg of regadenoson was infused per usual protocol. At peak infusion 44 mCi of technetium 99m sestamibi was injected stress images were obtained stress and rest images were reconstructed and compared in the short axis vertical long and horizontal long axis. Gated images were also obtained. Perfusion SPECT analysis: Review of the stress images demonstrate normal uptake of tracer noted in all areas of the myocardium. There is a large defect noted involving the inferior wall extending to the inferoseptal wall noted on the stress images. The resting images demonstrate a similar pattern. The above is suggestive of extensive inferior and inferoseptal infarct. No ischemia is noted. Gated SPECT analysis: The gated ejection fraction is 32%. Conclusion: Normal pharmacologic myocardial perfusion stress test with evidence of previous extensive inferior infarct. Reduced ejection fraction.
== END | disposition home or self-care (01) ==
PROVIDERS: PCP Physician Assistant Medical; Referring Provider Nurse Practitioner Family; Visit Provider Nurse Practitioner Family
DX: I25.5 Ischemic cardiomyopathy (principal); E11.621 Type 2 diabetes mellitus with foot ulcer; L97.509 Non-pressure chronic ulcer of other part of unspecified foot with unspecified severity; Z79.4 Long term (current) use of insulin; R00.1 Bradycardia, unspecified; I10 Essential (primary) hypertension; E78.5 Hyperlipidemia, unspecified; Z95.1 Presence of aortocoronary bypass graft
CPT/HCPCS: 78452; 93017; 93306; A9500; Q9957; A4216; C8929; J2785